=== PATIENT | female | born 1935 | race Caucasian/White ===

== ENCOUNTER 2022-03-10 20:32 | Observation (INO) | payer OTHER ==
--- OUTSIDE RECORDS SUMMARY | 2022-03-10 20:36 | XMS REPORT | Continuity of Care Document ---
:1935 Author Organization [facility] t Address [address] [place] [address] Care Team Providers Name Role Phone ABELINO BARFIELD Primary Care Physician Unavailable Casi Vieira Attending Clinician Unavailable Roseann RODRÍGUEZ Attending Clinician Unavailable Art WELLS Attending Clinician Unavailable Cheyanne RICARDO Attending Clinician Unavailable 1, Lab Attending Clinician Unavailable Fabian Saul MD Attending Clinician Doctor Unassigned, Name Attending Clinician Unavailable NARAYAN HUYNH Attending Clinician Unavailable Matt Duran Admitting Clinician Unavailable Cheyanne RICARDO Admitting Clinician Unavailable NARAYAN HUYNH Admitting Clinician Unavailable Payers Payer Name Policy Type Policy Number Effective Date Expiration Date S ourmo AETNA MEDICARE ADV [id number] 2013 00:00:00 AETM AETM [id number] Problems Condition Condition Condition Status Onset Resolution Last Treating Co mments Source Name Details Category Date Date Treatment Clinician Date Acute Acute Disease Active [facility] hypoxemic hypoxemic 9-10 [place] Acute Acute Disease Active Univers systolic systolic 9-10 ity of (congestiv (congestiv [place] heart e) heart 00 Medica l failure failure Branch Dyspnea Dyspnea Disease Active Univers 9-04 ity of 00:00: [place] [address] Medical Branch Fall from Fall from Disease Active Overview: Univers standing, standing, 5-20 Added ity of initial initial 00:00: automatic [place] encounter encounter 00 ally from M edical request Branch for surgery [id number] Periprosth Periprosth Disease Active Overview : Univers etic etic 5-20 Added ity of fracture fracture 00:00: automatic [place] as around around 00 ally from Medical internal internal request Branc h 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, joint, [id number] initial initial encounter encounter Femur Femur Disease Active Univers fracture, fracture, 5-20 ity of left left 00:00: [place] [address] Medical Branch Obesity Obesity Disease Active Univers (BMI (BMI - ity of 30-39.9) 30-39.9) 00:00: [place] [address] Medical Branch Pneumonia Pneumonia Disease Active Uni vers 02-07 ity of 00:00: [place] [address] Medical Branch Allergies, Adverse Reactions, Alerts Allergy Allergy Status Severity Reaction(s) Onset Inactive Treating Comm ents Source Name Type Date Date Clinician morphine DA Active SV 2020-0 [facility] 10-05 00:00: [address] neomycin DA Active SV 2020-0 [facility] 10-05 00:00: [address] bacitrac DA Active SV 2020-0 [facility] in 10-05 00:00: [address] polymyxi DA Active SV 2020-0 [facility] n B 10-05 00:00: [address] morphine DA Active SV RESPIRATORY [facility] DISTRESS 10-05 00:00: [address] neomycin DA Active SV BLISTERS 2020-0 [facility] 10-05 00:00: [address] bacitrac DA Active SV BLISTERS 2020-0 [facility] in 10-05 00:00: [address] polymyxi DA Active SV BLISTERS 2020- [facility] n B 10-05 00:00: [address] CHOCOLAT DRUG Active N/V Univers E FLAVOR INGREDI 02-05 ity of 00:00: [place] [address] Medical Branch Chocolat Propensi Active Nausea Reports Unive rs e Flavor ty to and/or 5-24 allergy ity of adverse Vomiting 00:00: to [place] reaction 00 chocolate Medic al s Branch morphine DA Active SV 2017-0 [facility] 11-07 00:00: [address] neomycin DA Active SV 2017- [facility] 11-07 00:00: [address] bacitrac DA Active SV 2018-0 [facility] in 11-07 00:00: [address] polymyxi DA Active SV 2017- [facility] n B 11-07 00:00: [address] morphine DA Active SV RESPIRATORY [facility] DISTRESS 11-07 00:00: [address] neomycin DA Active SV BLISTERS 2017- [facility] 11-07 00:00: [address] bacitrac DA Active SV BLISTERS 2017- [facility] in 11-07 00:00: [address] polymyxi DA Active SV BLISTERS 2017- [facility] n B 11-07 00:00: [address] MORPHINE DRUG Active SOB 2016- Univers INGREDI 5-25 ity of 00:00: [place] [address] Medical [place] Morphine Propensi Active Shortness of Throat Univers ty to Breath 5-25 swelling ity of adverse 00:00: [place] reaction 00 Medical s Branch Social History Social Habit Start Date Stop Date Quantity Comments [facility] Exposure to Not sure [place] of SARS-CoV-2 [facility] (event) [place] Tobacco use and 2020-05-18 2020-05-18 Never used Universit y of exposure 00:00:00 00:00:00 [facility] Tobacco Comment 2017-02-07 2017-02-07 Quit 40 years Univer sity of 00:00:00 00:00:00 ago [facility] Smoking Status Start Date Stop Date Source Former smoker 2020-05-18 00:00:00 2020-05-18 00:00:00 Universi ty of [facility] Medications Ordered Filled Start Stop Current Ordering Indication Dosage Frequency Signature Comments Components Source Medication Medication Date Date Medication? Clinician (SIG) Name Name montelukast Yes 10mg Take 10 mg Univers 10 mg 9-10 by mouth ity of tablet 15:26: at [place] 41 bedtime. Medical Branch Budesonide Yes 1{puff} Inhale 1 Univers (PULMICORT 9-10 Puff at ity of FLEXHALER) 15:26: bedtime. [place] 180 41 Medical mcg/actuati Branch on aerosol powder Potassium 2020-0 Yes 1{tbl} Take 1 Univ ers Gluconate 9-10 tablet by ity o f 595 mg (99 15:26: [place] mg) [place] 41 (two) Medical times Branch daily. MAGNESIUM 2020-0 Yes 200mg Take 200 Uni vers OXIDE ORAL 9-10 mg by ity of 15:26: mouth at [place] [address] bedtime. Medical Branch aspirin 81 2020-0 Yes 81mg Take 81 mg U nivers mg chewable 9-10 by mouth ity of tablet 15:26: daily. [place] [address] Medical Branch DOCOSAHEXAN 2020-0 Yes Take by jie OIC 9-10 mouth. ity of ACID/EPA 15:26: [place] (FISH OIL 41 Medical ORAL) Branch ASCORBATE 2020-0 Yes Take by Univ ers CALCIUM 9-10 mouth. ity of (VITAMIN C 15:26: [place] ORAL) 41 Medical Branch VITAMIN B 2020-0 Yes Take by [facility] ers COMPLEX 9-10 mouth. ity of ORAL 15:26: [place] [address] Medical Branch glipiZIDE 5 2020-0 Yes 5mg Take 5 mg U nivers mg tablet 9-10 by mouth ity of 15:26: daily. [place] [address] Medical Branch lisinopriL 2020-0 2020- No [id number] 5mg Take 1 Univers 5 mg tablet 9-10 10-11 tablet by it y of 00:00: 04:59 mouth [place] 00 :00 daily for Medical 30 days. Branch spironolact 2020-0 2020- No [id number] 25mg Take 1 Univers one 25 mg 9-10 10-11 tablet by ity of tablet 00:00: 04:59 mouth [place] 00 :00 daily for Medical 30 days. Branch warfarin 3 2020-0 2020- No [id number] 3mg Take 1 Univers mg tablet 9-10 10-11 tablet by ity of 00:00: 04:59 mouth [place] 00 :00 every Medical Tues, Branch Thurs, Sat and Sun in the evening for 30 days. carvediloL 2020-0 2020- No [id number] 3.125mg Take 1 Univers 3.125 mg 9-09 10-10 tablet by ity o f tablet 00:00: 04:59 mouth 2 [place] 00 :00 (two) Medical times Branch daily with meals for 30 days. furosemide 2020- 2020- No [id number] 40mg Take 1 Univers 40 mg 05-2410 tablet by ity of tablet 00:00: 04:59 mouth [place] 00 :00 every Medical morning Branch and evening for 30 days. warfarin 4 2019- 2020- No [id number] 4mg Take 1 Univers mg tablet 05-24 10-10 tablet by ity of 00:00: 04:59 mouth [place] 00 :00 every Medical Friday, Branch and Friday in the evening for 30 days. carvedilol 2019- Yes 6.25mg Take 6.25 Univers 6.25 mg 6-01 mg by ity of tablet 02:46: mouth 2 [place] [address] (two) Medical times Branch daily with meals. isosorbide Yes 20mg Take 20 mg U nivers dinitrate 6-01 by mouth 2 ity of 20 mg 02:46: (two) [place] tablet 16 times Medical daily. Branch furosemide Yes 20mg Take 20 mg U nivers 20 mg 6-01 by mouth ity of tablet 02:46: daily. [place] [address] Medical Branch amLODIPine 2018- Yes 5mg Take 5 mg Un jie 5 mg tablet 6-01 by mouth ity of 02:46: daily. [place] [address] Medical Branch montelukast 2018-0 Yes 10mg Take 10 mg Univers 10 mg 6-01 by mouth ity of tablet 02:46: at [place] [address] bedtime. Medical Branch Budesonide 2019-0 Yes 1{puff} Inhale 1 Univers (PULMICORT 6-01 Puff at [facility] 02:46: bedtime. [place] 180 16 Medical mcg/actuati Branch on aerosol powder Potassium 2019-0 Yes 1{tbl} Take 1 Univ ers Gluconate 6-01 tablet by ity o f 595 mg (99 02:46: [place] mg) Tab 16 (two) Medical times Branch daily. MAGNESIUM 2019-0 Yes 200mg Take 200 Uni vers OXIDE ORAL 6-01 mg by ity of 02:46: mouth at [place] [address] bedtime. Medical Branch aspirin 81 2019-0 Yes 81mg Take 81 mg U nivers mg chewable 6-01 by mouth ity of tablet 02:46: daily. [place] [address] Medical Branch DOCOSAHEXAN 2019-0 Yes Take by Un jie OIC 6-01 mouth. ity of ACID/EPA 02:46: [place] (FISH OIL 16 Medical ORAL) Branch ASCORBATE 0 Yes Take by [facility] ers CALCIUM 6-01 mouth. ity of (VITAMIN C 02:46: [place] ORAL) Medical Branch VITAMIN B Yes Take by [facility] ers COMPLEX 6-01 mouth. ity of ORAL 02:46: [address] Branch glipiZIDE 5 2018- Yes 5mg Take 5 mg U nivers mg tablet 6-01 by mouth ity of 02:46: daily. [place] [address] Medical Branch carvedilol Yes 6.25mg Take 6.25 Univers 6.25 mg 6-01 mg by ity of tablet 02:46: mouth 2 [place] [address] (two) Medical times Branch daily with meals. isosorbide Yes 20mg Take 20 mg U nivers dinitrate 6-01 by mouth 2 ity of 20 mg 02:46: (two) [place] tablet times Medical daily. Branch furosemide Yes 20mg Take 20 mg U nivers 20 mg 6-01 by mouth ity of tablet 02:46: daily. [place] [address] Medical Branch amLODIPine Yes 5mg Take 5 mg Un jie 5 mg tablet 6-01 by mouth ity of 02:46: daily. [place] [address] Medical Branch montelukast Yes 10mg Take 10 mg Univers 10 mg 6-01 by mouth ity of tablet 02:46: at [place] [address] bedtime. Medical Branch Budesonide 2018-0 Yes 1{puff} Inhale 1 Univers (PULMICORT 6-01 Puff at ity of [facility]) 02:46: bedtime. [place] 180 Medical mcg/actuati Branch on aerosol powder Potassium 2018-0 Yes 1{tbl} Take 1 Univ ers Gluconate 6-01 tablet by ity o f 595 mg (99 02:46: [place] mg) Tab 16 (two) Medical times Branch daily. MAGNESIUM 2019-0 Yes 200mg Take 200 Uni vers OXIDE ORAL 6-01 mg by ity of 02:46: mouth at [place] [address] bedtime. Medical Branch aspirin 81 2019-0 Yes 81mg Take 81 mg U nivers mg chewable 6-01 by mouth ity of tablet 02:46: daily. [place] [address] Medical Branch DOCOSAHEXAN 2019-0 Yes Take by Un jie OIC 6-01 mouth. ity of ACID/EPA 02:46: [place] (FISH OIL 16 Medical ORAL) Branch ASCORBATE 0 Yes Take by [facility] ers CALCIUM 6-01 mouth. ity of (VITAMIN C 02:46: [place] ORAL) Medical Branch VITAMIN B Yes Take by [facility] ers COMPLEX 6-01 mouth. ity of ORAL 02:46: [address] glipiZIDE 5 2018- Yes 5mg Take 5 mg U nivers mg tablet 6-01 by mouth ity of 02:46: daily. [address] Branch carvedilol 0 Yes 6.25mg Take 6.25 Univers 6.25 mg 6-01 mg by ity of tablet 02:46: mouth 2 [place] [address] (two) Medical times Branch daily with meals. isosorbide Yes 20mg Take 20 mg U nivers dinitrate 6-01 by mouth 2 ity of 20 mg 02:46: (two) [place] tablet times Medical daily. Branch furosemide Yes 20mg Take 20 mg U nivers 20 mg 6-01 by mouth ity of tablet 02:46: daily. [address] Branch amLODIPine Yes 5mg Take 5 mg Un jie 5 mg tablet 6-01 by mouth ity of 02:46: daily. [address] Branch montelukast 0 Yes 10mg Take 10 mg Univers 10 mg 6-01 by mouth ity of tablet 02:46: at [place] [address] bedtime. Medical Branch Budesonide 2018-0 Yes 1{puff} Inhale 1 Univers (PULMICORT 6-01 Puff at ity of FLEXHALER) 02:46: bedtime. [place] 180 Medical mcg/actuati Branch on aerosol powder Potassium 2018-0 Yes 1{tbl} Take 1 Univ ers Gluconate 6-01 tablet by ity o f 595 mg (99 02:46: mouth 2 [place] mg) Tab 16 (two) Medical times Branch daily. MAGNESIUM 2019-0 Yes 200mg Take 200 Uni vers OXIDE ORAL 6-01 mg by ity of 02:46: mouth at [place] [address] bedtime. Medical Branch aspirin 81 2019-0 Yes 81mg Take 81 mg U nivers mg chewable 6-01 by mouth ity of tablet 02:46: daily. [place] [address] Medical Branch DOCOSAHEXAN Yes Take by Un jie OIC 6- mouth. ity of ACID/EPA 02:46: [place] (FISH OIL 16 Medical ORAL) Branch ASCORBATE Yes Take by [facility] ers CALCIUM 6- mouth. ity of (VITAMIN C 02:46: [place] ORAL) 16 Medical Branch VITAMIN B Yes Take by [facility] ers COMPLEX 6- mouth. ity of ORAL 02:46: [place] [address] Medical Branch glipiZIDE 5 Yes 5mg Take 5 mg U nivers mg tablet - by mouth ity of 02:46: daily. [place] [address] Medical Branch bisacodyl 5 Yes [id number] 10mg Take 2 Univers mg EC 6-01 tablets by ity of tablet 00:00: mouth [place] 00 daily. Medical Branch bisacodyl 5 Yes [id number] 10mg Take 2 Univers mg EC 6-01 tablets by ity of tablet 00:00: mouth [place] 00 daily. Medical Branch bisacodyl 5 Yes [id number] 10mg Take 2 Univers mg EC 6-01 tablets by ity of tablet 00:00: mouth [place] 00 daily. Medical Branch bisacodyl 5 Yes [id number] 10mg Take 2 Univers mg EC 6-01 tablets by ity of tablet 00:00: mouth [place] 00 daily. Medical Branch sennosides- Yes [id number] 1{tbl} Take 1 Univers docusate 5-31 tablet by ity of sodium 00:00: mouth 2 [place] 8.6-50 mg 00 (two) Medical per tablet times Branch daily. HYDROcodone Yes [id number] 1{tbl} Take 1 Univers -acetaminop 5-31 tablet by ity of hen 5-325 00:00: mouth [place] mg tablet 00 every 6 Medical (six) Branch hours as needed for Pain (scale 7-10). insulin Yes [id number] 10U inject 10 Univers aspart 5-31 Units ity of injection 00:00: under the [place] 00 skin TID Medical MEALS+HS. Branch warfarin 5 Yes [id number] Take 1 Univers mg tablet 5-31 tablet (5 ity o f 00:00: mg) on [place] 00 Friday, Medical Friday, Branch Friday, take 0.5 tablet (2.5mg) on Friday, and Friday Levothyroxi 2018- Yes [id number] 112ug Take 1 Univers ne 112 mcg 5-31 capsule by ity of capsule 00:00: mouth [place] 00 daily. Medical Branch [facility]- Yes [id number] 1{tbl} Take 1 Univers docusate 5-31 tablet by ity of sodium 00:00: mouth 2 [place] 8.6-50 mg 00 (two) Medical per tablet times Branch daily. HYDROcodone Yes [id number] 1{tbl} Take 1 Univers -acetaminop 5-31 tablet by ity of hen 5-325 00:00: mouth [place] mg tablet 00 every 6 Medical (six) Branch hours as needed for Pain (scale 7-10). insulin Yes [id number] 10U inject 10 Univers aspart 5-31 Units ity of injection 00:00: under the [place] 00 skin TID Medical MEALS+HS. Branch warfarin 5 Yes [id number] Take 1 Univers mg tablet 5-31 tablet (5 ity o f 00:00: mg) on Friday, Medical Friday, Branch Friday, take 0.5 tablet (2.5mg) on Friday, and Friday Levothyroxi Yes [id number] 112ug Take 1 Univers ne 112 mcg 5-31 capsule by ity of capsule 00:00: mouth [place] 00 daily. [facility]- Yes [id number] 1{tbl} Take 1 Univers docusate 5-31 tablet by ity of sodium 00:00: mouth 2 [place] 8.6-50 mg 00 (two) Medical per tablet times Branch daily. HYDROcodone Yes [id number] 1{tbl} Take 1 Univers -acetaminop 5-31 tablet by ity of hen 5-325 00:00: mouth [place] mg tablet 00 every 6 Medical (six) Branch hours as needed for Pain (scale 7-10). insulin Yes [id number] 10U inject 10 Univers aspart 5-31 Units ity of injection 00:00: under the [place] 00 skin TID Medical MEALS+HS. Branch warfarin 5 2019-0 Yes [id number] Take 1 Univers mg tablet 5-31 tablet (5 ity o f 00:00: mg) on [place] 00 Friday, Medical Friday, Branch Friday, take 0.5 tablet (2.5mg) on Friday, and Friday Levothyroxi Yes [id number] 112ug Take 1 Univers ne 112 mcg 5-31 capsule by ity of capsule 00:00: mouth 00 daily. Medical Branch sennosides- Yes [id number] 1{tbl} Take 1 Univers docusate 5-31 tablet by ity of sodium 00:00: mouth 2 [place] 8.6-50 mg 00 (two) Medical per tablet times Branch daily. HYDROcodone Yes [id number] 1{tbl} Take 1 Univers -acetaminop 5-31 tablet by ity of hen 5-325 00:00: mouth [place] mg tablet 00 every 6 Medical (six) Branch hours as needed for Pain (scale 7-10). insulin Yes [id number] 10U inject 10 Univers aspart 5-31 Units ity of injection 00:00: under the [place] 00 skin TID Medical MEALS+HS. Branch Levothyroxi Yes [id number] 112ug Take 1 Univers ne 112 mcg 5-31 capsule by ity of capsule 00:00: mouth 00 daily. Medical Branch Procedures Procedure Date / Time Performing Clinician Source Performed HOME HEALTH - OTHER 2019-05-19 05:01:00 [facility] FOR 2019-03-10 05:01:00 Doctor Unassigned, No Univ ersity [facility] OF [facility] Name Medical Branch Encounters Start End Encounter Admission Attending Care Care Encounter Source Date/Time Date/Time Type Type Clinicians Facility Department ID 2021-07-13 Emergency [facility] [id number] Univers 15:52:24 ity of [facility] 2020-10-04 Inpatient EL Pepper, [facility] [id number] [facility] 13:00:00 [place] [id number] [facility] 2020-08-24 Inpatient EL Pepper, [facility] [id number] [facility] 13:00:00 [place] [id number] [facility] 2019-02-20 Inpatient E [facility] MED [id number] MHB L 20:55:00 2020-10-05 2020-10-05 Outpatient Pepper, [facility] [id number] [facility] 13:00:00 13:00:00 [place] [id number] [facility] 2020-08-31 2020-08-31 Outpatient Pepper, [facility] [id number] [facility] 13:00:00 13:00:00 [place] [id number] [facility] 2020-07-18 2020-07-18 Outpatient Pepper, [facility] [id number] [facility] 09:30:00 09:30:00 [place] [id number] [facility] 2020-05-26 2020-05-26 Transition [place] [id number] Univers 00:00:00 00:00:00 of Care Nicole Arita [id number] it y [place] [id number] [place] [id number] [address] 2020-05-26 2020-05-26 Transition [place] [id number] 00:00:00 00:00:00 of Care Nicole Arita [id number] [place] [id number] [id number] 2019-12-09 2019-12-09 Outpatient Shaina [facility] [id number] Univers 10:30:00 10:30:00 JB 997235 lito [facility] 2019-12-09 2019-12-09 Outpatient Shaina [facility] [id number] Univers 10:30:00 10:30:00 JB morse [facility] 2019-12-01 2019-12-01 Outpatient Shaina [facility] [id number] Univers 13:00:00 13:00:00 JB [facility] 2019-08-24 2019-08-24 Outpatient Shaina [facility] [id number] Univers 10:36:58 23:59:00 HILDA morse [facility] 2019-05-19 2019-05-19 Alternative [employer] Engineer 1, Adc Lab [facility] [id number] Univers 15:02:08 15:17:08 Visit Debi Saul [id number] .10 ity [place]2.[place] [id number] [address] 2019-05-19 2019-05-19 Alternative Energy Engineer 1, Adc Lab [facility] [id number] 15:02:08 15:17:08 Visit Yaneth [id number] [place] [id number] [place] [id number] [facility] 2019-05-19 2019-05-19 Orders Doctor DOMINGA [id number] Univers 00:00:00 00:00:00 Only Unassigned, BLAKE [id number] ity of [facility] [id number] [place] [id number] [address] 2019-05-19 2019-05-19 Orders Doctor ORR [id number] 00:00:00 00:00:00 Only Unassigned, BLAKE [id number] [facility] [id number] [id number] 2019-03-10 2019-03-10 Orders Doctor ORR [id number] Univers 00:00:00 00:00:00 Only Unassigned, BLAKE [id number] ity of [facility] [id number] [place] [id number] [address] 2019-03-10 2019-03-10 Orders Doctor ORR [id number] 00:00:00 00:00:00 Only Unassigned, BLAKE [id number] [facility] [id number] [id number] 2019-02-12 2019-02-20 Inpatient 3 AMINA, [facility] [id number] ENCPL 22:30:00 19:00:00 NARAYAN 0531 Results Test Description Test Time Test Comments Results Result Comments Source BASIC METABOLIC PANEL 2020-10-05 14:40:00 Test Item Value Reference Range Interpretation Comme nts SODIUM (test code = NA) 134 MMOL/L 137-145 L POTASSIUM (test code = K) 4.0 MMOL/L 3.5-5.1 N CHLORIDE (test code = CL) 101 MMOL/L 98-107 N CARBON DIOXIDE (test code = CO2) 30 MMOL/L 22-30 N ANION GAP (test code = GAP) 7 MMOL/L 14-24 L GLUCOSE (test code = GLU) 104 MG/DL 74-106 BLOOD UREA NITROGEN (test code = 22 MG/DL 7-17 H BUN) GLOMERULAR FILTRATION RATE (test 53 Reporting units: ml/min/1.73 code = GFR) m2 (Modified M DRD Formula)Referen ce Range: > or = 60 ml/min/1.7 3 m2 CREATININE (test code = CREAT) 1.00 MG/DL 0.52-1.04 N CALCIUM (test code = CA) 8.6 MG/DL 8.4-10.2 N [id number] 14:40:00 Test Item Value Reference Range Interpretation Comments MAGNESIUM (test code = MAG) 2.1 MG/DL 1.6-2.3 N BASIC METABOLIC [id number] 14:36:00 Test Item Value Reference Range Interpretation Comments SODIUM (test code = 134 MMOL/L 137-145 L NA) POTASSIUM (test code = 4.0 MMOL/L 3.5-5.1 N K) CHLORIDE (test code = 101 MMOL/L 98-107 N CL) CARBON DIOXIDE (test MMOL/L 22-30 code = CO2) GLUCOSE (test code = MG/DL 74-106 GLU) BLOOD UREA NITROGEN MG/DL 7-17 (test code = BUN) GLOMERULAR FILTRATION 53 Report ing units: RATE (test code = GFR) ml/mi n/1.73 m2 (Modified MDRD Formula)Referen ce Range: > or = 6 0 ml/min/1.73 m2 CREATININE (test code 1.00 MG/DL 0.52-1.04 N = CREAT) CALCIUM (test code = MG/DL 8.7-9.7 CA) [id number] 14:36:00 Test Item Value Reference Range Interpretation Comments MAGNESIUM (test code = MAG) MG/DL 1.6-2.3 BASIC METABOLIC [id number] 14:34:00 Test Item Value Reference Range Interpretation Comments SODIUM (test code = NA) 134 MMOL/L 137-145 L POTASSIUM (test code = K) 4.0 MMOL/L 3.5-5.1 N CHLORIDE (test code = CL) 101 MMOL/L 98-107 N CARBON DIOXIDE (test code = CO2) MMOL/L 22-30 GLUCOSE (test code = GLU) MG/DL 74-106 BLOOD UREA NITROGEN (test code = MG/DL 7-17 BUN) GLOMERULAR FILTRATION RATE (test code = GFR) CREATININE (test code = CREAT) MG/DL 0.52-1.04 CALCIUM (test code = CA) MG/DL 8.7-9.7 [id number] 14:34:00 Test Item Value Reference Range Interpretation Comments MAGNESIUM (test code = MAG) MG/DL 1.6-2.3 CBC W/AUTO [id number] 14:15:00 Test Item Value Reference Range Interpretation Comments WHITE BLOOD CELL (test code = 10.4 K/MM3 3.8-9.8 H WBC) RED BLOOD CELL (test code = 4.12 M/MM3 3.58-4.97 N RBC) HEMOGLOBIN (test code = HGB) 12.5 G/DL 11.2-14.9 N HEMATOCRIT (test code = HCT) 41.7 % 33.2-43.5 N MEAN CELL VOLUME (test code = 101 fL 80.7-99.1 H MCV) MEAN CELL HGB (test code = MCH) 30.3 pg 27.0-34.1 N MEAN CELL HGB CONCETRATION 30.0 % 32.2-35.7 L (test code = MCHC) RED CELL DISTRIBUTION WIDTH 14.6 % 12.1-15.2 N (test code = RDW) PLATELET COUNT (test code = 187 K/MM3 129-368 N PLT) MEAN PLATELET VOLUME (test code 9.0 fl 7.4-10.4 N = MPV) NEUTROPHIL % (test code = NT%) 71.1 % 43-75 N IMMATURE GRANULOCYTE % (test 0.4 % 0.0-2.0 N code = IG%) LYMPHOCYTE % (test code = LY%) 14.4 % 14-44 N MONOCYTE % (test code = MO%) 11.7 % 4-13 N EOSINOPHIL % (test code = EO%) 1.8 % 0-6 N BASOPHIL % (test code = BA%) 0.6 % 0-2 N NUCLEATED RBC % (test code = 0.0 % 0-1.0 N NRBC%) NEUTROPHIL # (test code = NT#) 7.38 K/mm3 2.0-7.6 N IMMATURE GRANULOCYTE # (test 0.04 x10 3/uL 0-0.03 H code = IG#) LYMPHOCYTE # (test code = LY#) 1.49 K/mm3 1.0-3.8 N MONOCYTE # (test code = MO#) 1.21 K/mm3 0.1-0.8 H EOSINOPHIL # (test code = EO#) 0.19 K/mm3 0.0-0.2 N BASOPHIL # (test code = BA#) 0.06 K/mm3 0.0-0.2 N NUCLEATED RBC # (test code = 0.00 K/mm3 0.0-0.1 N NRBC#) ARTERIAL BLOOD [id number] 19:02:00 Test Item Value Reference Range Interpretation Comments ARTERIAL BLOOD GAS PH 7.32 mmHg 7.35-7.45 L (test code = PHA) ARTERIAL BLOOD GAS 52.3 mmHg 35.0-45.0 HH PCO2 (test code = PCO2A) ARTERIAL BLOOD GAS PO2 112.5 mmol/L 80.0-100.0 H (test code = PO2A) BICARBONATE TOTAL HCO3 26.5 mmol/L 20.0-26.0 H (test code = HCO3) BASE EXCESS (test code -0.4 mmol/L -3.0-3.0 N = ROBERT) ABG O2 SATURATION 97.7 % 95.0-100.0 N All critic al values (test code = SATA) report to and readback by [facility] NURSE by ANDREW at 10/04/2020 7:01: 33 PM ABG DELIVERY (test NRBMASK code = RUTHIE) ABG TEMPERATURE (test 37.0 C >37 code = TEMPA) ABG SITE (test code = LINE SITEA) ALLENS TEST (test code Y CHECK = ALLENS) FIO2 (test code = 80 % COHBGFFIO2) PaO2/[id number] 19:02:00 Test Item Value Reference Range Interpretation Comments PaO2/FiO2 (test code = [id number]) mm/Hg ARTERIAL BLOOD [id number] 19:02:00 Test Item Value Reference Range Interpretation Comments ARTERIAL BLOOD GAS PH 7.32 mmHg 7.35-7.45 L (test code = PHA) ARTERIAL BLOOD GAS 52.3 mmHg 35.0-45.0 HH PCO2 (test code = PCO2A) ARTERIAL BLOOD GAS PO2 112.5 mmol/L 80.0-100.0 H (test code = PO2A) BICARBONATE TOTAL HCO3 26.5 mmol/L 20.0-26.0 H (test code = HCO3) BASE EXCESS (test code -0.4 mmol/L -3.0-3.0 N = ROBERT) ABG O2 SATURATION 97.7 % 95.0-100.0 N All critic al values (test code = SATA) report to and readback by [facility] NURSE by ANDREW at 10/04/2020 7:01: 33 PM ABG DELIVERY (test NRBMASK code = RUTHIE) ABG TEMPERATURE (test 37.0 C >37 code = TEMPA) ABG SITE (test code = LINE SITEA) ALLENS TEST (test code Y CHECK = ALLENS) FIO2 (test code = 80 % COHBGFFIO2) PaO2/[id number] 19:02:00 Test Item Value Reference Range Interpretation Comments PaO2/FiO2 (test code = [id number]) 140.62 mm/Hg BASIC METABOLIC [id number] 16:01:00 Test Item Value Reference Range Interpretation Comments SODIUM (test code = 137 MMOL/L 137-145 N NA) POTASSIUM (test code = 3.6 MMOL/L 3.5-5.1 N K) CHLORIDE (test code = 102 MMOL/L 98-107 N CL) CARBON DIOXIDE (test 32 MMOL/L 22-30 H code = CO2) GLUCOSE (test code = 145 MG/DL 74-106 H GLU) BLOOD UREA NITROGEN 22 MG/DL 7-17 H (test code = BUN) GLOMERULAR FILTRATION > 60 Report ing units: RATE (test code = GFR) ml/mi n/1.73 m2 (Modified MDRD Formula)Referen ce Range: > or = 6 0 ml/min/1.73 m2 CREATININE (test code 0.80 MG/DL 0.52-1.04 N = CREAT) CALCIUM (test code = 8.9 MG/DL 8.4-10.2 N CA) BASIC METABOLIC [id number] 15:59:00 Test Item Value Reference Range Interpretation Comments SODIUM (test code = 137 MMOL/L 137-145 N NA) POTASSIUM (test code = 3.6 MMOL/L 3.5-5.1 N K) CHLORIDE (test code = 102 MMOL/L 98-107 N CL) CARBON DIOXIDE (test 32 MMOL/L 22-30 H code = CO2) GLUCOSE (test code = MG/DL 74-106 GLU) BLOOD UREA NITROGEN MG/DL 7-17 (test code = BUN) GLOMERULAR FILTRATION > 60 Report ing units: RATE (test code = GFR) ml/mi n/1.73 m2 (Modified MDRD Formula)Referen ce Range: > or = 6 0 ml/min/1.73 m2 CREATININE (test code 0.80 MG/DL 0.52-1.04 N = CREAT) CALCIUM (test code = MG/DL 8.7-9.7 CA) BASIC METABOLIC [id number] 15:57:00 Test Item Value Reference Range Interpretation Comments SODIUM (test code = NA) 137 MMOL/L 137-145 N POTASSIUM (test code = K) 3.6 MMOL/L 3.5-5.1 N CHLORIDE (test code = CL) 102 MMOL/L 98-107 N CARBON DIOXIDE (test code = CO2) MMOL/L 22-30 GLUCOSE (test code = GLU) MG/DL 74-106 BLOOD UREA NITROGEN (test code = MG/DL 7-17 BUN) GLOMERULAR FILTRATION RATE (test code = GFR) CREATININE (test code = CREAT) MG/DL 0.52-1.04 CALCIUM (test code = CA) MG/DL 8.7-9.7 BASIC METABOLIC [id number] 15:56:00 Test Item Value Reference Range Interpretation Comments SODIUM (test code = NA) 137 MMOL/L 137-145 N POTASSIUM (test code = K) MMOL/L 3.5-5.1 CHLORIDE (test code = CL) 102 MMOL/L 98-107 N CARBON DIOXIDE (test code = CO2) MMOL/L 22-30 GLUCOSE (test code = GLU) MG/DL 74-106 BLOOD UREA NITROGEN (test code = MG/DL 7-17 BUN) GLOMERULAR FILTRATION RATE (test code = GFR) CREATININE (test code = CREAT) MG/DL 0.52-1.04 CALCIUM (test code = CA) MG/DL 8.7-9.7 - XR CHEST [id number] 15:51:00 [facility] 1935 Sex: F Patient Name: NED BENNETT Unit No: [id number] EXAMS: CPT CODE: [id number] XR CHEST 1V 72775 C3 TIME OF STUDY: 10/04/2020 3:17 PM REASON FOR EXAM: POST AICD IMPLANT COMPARISON: July 18, 2020 FINDINGS: AP view of the chest was obtained. Support devices: Left-sided pacemaker/ICD is in place. Lungs: Normal lung volume. No mass, or consolidation. Normal pulmonary vascularity. Senescent changes of the lungs. Pleura: No pleural effusion or pneumothorax. Heart and Mediastinum: Normal cardiomediastinal silhouette and calcific atherosclerosis. Bones: Normal regional skeletal structures.IMPRESSION: 1. Left-sided pacemaker/ICD in place. The leads do not appear to follow a conventional course. Correlate with history. No pneumothorax. at 1551 Reported and signed by: Jacobo SCHREIBER CC: Sean Duran MD; Vernon Vieira; Santy Barfield MD Technologist: Brenda Borges (RT) Transcrpt Date/Tm/Trnsp: 10/04/2020 (155) [email or web address] Orig Print D/T: S: 10/04/2020 (634) [facility] NAME: NED BENNETT [id number] PHYS: [place] [address] : 1935 AGE: 85 SEX: F [facility] #: [phone] EXAM DATE: 10/04/2020 STATUS: REG IAN FAX #: [phone] RADIOLOGY NO: PAGE 1 Signed ReportBASIC METABOLIC [id number] 07:23:00 Test Item Value Reference Range Interpretation Comments SODIUM (test code = 139 MMOL/L 137-145 N NA) POTASSIUM (test code = 3.9 MMOL/L 3.5-5.1 N K) CHLORIDE (test code = 100 MMOL/L 98-107 N CL) CARBON DIOXIDE (test 32 MMOL/L 22-30 H code = CO2) ANION GAP (test code = 11 MMOL/L 14-24 L GAP) GLUCOSE (test code = 139 MG/DL 74-106 H GLU) BLOOD UREA NITROGEN 29 MG/DL 7-17 H (test code = BUN) GLOMERULAR FILTRATION 59 Report ing units: RATE (test code = GFR) ml/mi n/1.73 m2 (Modified MDRD Formula)Referen ce Range: > or = 6 0 ml/min/1.73 m2 CREATININE (test code 0.90 MG/DL 0.52-1.04 N = CREAT) CALCIUM (test code = 9.8 MG/DL 8.4-10.2 N CA) [id number] 07:23:00 Test Item Value Reference Range Interpretation Comments MAGNESIUM (test code = MAG) 2.1 MG/DL 1.6-2.3 N PROTHROMBIN [id number] 07:20:00 Test Item Value Reference Range Interpretation Comments PROTHROMBIN TIME 13.8 SECONDS 9.4-12.5 H PATIENT (test code = PTP) INTERNATIONAL NORMAL 1.2 The INR is to be RATIO (test code = used only for INR) monitoring oral anticoagulantth erap y. INDICATION I NR VALUE ---- ---- ---- -------1. Prophylaxis, de ep venous thrombos is, including hig h risk surgery. 2.0 - 3.0 2. Prophylaxis, de ep venous thrombos is, hip surgery, treatment for d eep venous thrombosis or pulmonary prevention of systemic emboli sm in patients wit h valvular heart disease, atrial fibrillation, tissue heart va lve, or acute myocar dial infarction. 2.0 - 3 .0 3. Mechanical prosthesis hear t valves, recurrent syste marta embolism. 3.0 - 4.5 PTT [id number] 07:20:00 Test Item Value Reference Range Interpretation Comments PTT ACTIVATED (test code = APTT) 35.3 SECONDS 25.1-36.5 N BASIC METABOLIC [id number] 07:13:00 Test Item Value Reference Range Interpretation Comments SODIUM (test code = 139 MMOL/L 137-145 N NA) POTASSIUM (test code = 3.9 MMOL/L 3.5-5.1 N K) CHLORIDE (test code = 100 MMOL/L 98-107 N CL) CARBON DIOXIDE (test MMOL/L 22-30 code = CO2) GLUCOSE (test code = MG/DL 74-106 GLU) BLOOD UREA NITROGEN MG/DL 7-17 (test code = BUN) GLOMERULAR FILTRATION 59 Report ing units: RATE (test code = GFR) ml/mi n/1.73 m2 (Modified MDRD Formula)Referen ce Range: > or = 6 0 ml/min/1.73 m2 CREATININE (test code 0.90 MG/DL 0.52-1.04 N = CREAT) CALCIUM (test code = MG/DL 8.7-9.7 CA) [id number] 07:13:00 Test Item Value Reference Range Interpretation Comments MAGNESIUM (test code = MAG) MG/DL 1.6-2.3 CBC W/AUTO [id number] 07:11:00 Test Item Value Reference Range Interpretation Comments WHITE BLOOD CELL (test code = 8.3 K/MM3 3.8-9.8 N WBC) RED BLOOD CELL (test code = 4.25 M/MM3 3.58-4.97 N RBC) HEMOGLOBIN (test code = HGB) 13.0 G/DL 11.2-14.9 N HEMATOCRIT (test code = HCT) 41.2 % 33.2-43.5 N MEAN CELL VOLUME (test code = 97 fL 80.7-99.1 N MCV) MEAN CELL HGB (test code = MCH) 30.6 pg 27.0-34.1 N MEAN CELL HGB CONCETRATION 31.6 % 32.2-35.7 L (test code = MCHC) RED CELL DISTRIBUTION WIDTH 14.5 % 12.1-15.2 N (test code = RDW) PLATELET COUNT (test code = 213 K/MM3 129-368 N PLT) MEAN PLATELET VOLUME (test code 8.7 fl 7.4-10.4 N = MPV) NEUTROPHIL % (test code = NT%) 48.1 % 43-75 N IMMATURE GRANULOCYTE % (test 0.2 % 0.0-2.0 N code = IG%) LYMPHOCYTE % (test code = LY%) 36.0 % 14-44 N MONOCYTE % (test code = MO%) 11.1 % 4-13 N EOSINOPHIL % (test code = EO%) 3.6 % 0-6 N BASOPHIL % (test code = BA%) 1.0 % 0-2 N NUCLEATED RBC % (test code = 0.0 % 0-1.0 N NRBC%) NEUTROPHIL # (test code = NT#) 4.00 K/mm3 2.0-7.6 N IMMATURE GRANULOCYTE # (test 0.02 x10 3/uL 0-0.03 N code = IG#) LYMPHOCYTE # (test code = LY#) 2.99 K/mm3 1.0-3.8 N MONOCYTE # (test code = MO#) 0.92 K/mm3 0.1-0.8 H EOSINOPHIL # (test code = EO#) 0.30 K/mm3 0.0-0.2 H BASOPHIL # (test code = BA#) 0.08 K/mm3 0.0-0.2 N NUCLEATED RBC # (test code = 0.00 K/mm3 0.0-0.1 N NRBC#) BASIC METABOLIC [id number] 07:11:00 Test Item Value Reference Range Interpretation Comments SODIUM (test code = NA) 139 MMOL/L 137-145 N POTASSIUM (test code = K) 3.9 MMOL/L 3.5-5.1 N CHLORIDE (test code = CL) 100 MMOL/L 98-107 N CARBON DIOXIDE (test code = CO2) MMOL/L 22-30 GLUCOSE (test code = GLU) MG/DL 74-106 BLOOD UREA NITROGEN (test code = MG/DL 7-17 BUN) GLOMERULAR FILTRATION RATE (test code = GFR) CREATININE (test code = CREAT) MG/DL 0.52-1.04 CALCIUM (test code = CA) MG/DL 8.7-9.7 [id number] 07:11:00 Test Item Value Reference Range Interpretation Comments MAGNESIUM (test code = MAG) MG/DL 1.6-2.3 BASIC METABOLIC [id number] 07:10:00 Test Item Value Reference Range Interpretation Comments SODIUM (test code = NA) MMOL/L 137-145 POTASSIUM (test code = K) MMOL/L 3.5-5.1 CHLORIDE (test code = CL) 100 MMOL/L 98-107 N CARBON DIOXIDE (test code = CO2) MMOL/L 22-30 GLUCOSE (test code = GLU) MG/DL 74-106 BLOOD UREA NITROGEN (test code = MG/DL 7-17 BUN) GLOMERULAR FILTRATION RATE (test code = GFR) CREATININE (test code = CREAT) MG/DL 0.52-1.04 CALCIUM (test code = CA) MG/DL 8.7-9.7 [id number] 07:10:00 Test Item Value Reference Range Interpretation Comments MAGNESIUM (test code = MAG) MG/DL 1.6-2.3 COVID 19 Asymptomatic IH [id number] 16:58:00 Test Item Value Reference Range Interpretation Comments COVID 19 NEGATIVE Negative "Negative resul ts from Asymptomatic IH AG patients with symptom (test code = onset beyondfiv e days, COVNONPUIAG) should be sotero dewayne as presumptive, andconfirmation with a molecular assay , if necessary forpa tient management may be performed. Nega tive results do notr ule out COVID-19 and sh ould not be used as the sole basisfor treatm ent or patient managem ent decisions, includinginfect ion control decisio ns. Negative result s should beconsidered in the context of a pa tients recent exposure s,history, and the presenc e of clinical signs and symptomsconsist ent with COVID-19.This t est detects both vi able andnon-viable S ARS-CoV and SARS CoV-2. Test performance dep endson the amount of virus (antigen) in the sample." GLUCOSE BEDSIDE [id number] 11:53:00 Test Item Value Reference Range Interpretation Comments GLUCOSE BEDSIDE TESTING (test code = 94 MG/DL 60-99 N GLUBED) GLUCOSE BEDSIDE [id number] 08:02:00 Test Item Value Reference Range Interpretation Comments GLUCOSE BEDSIDE TESTING (test code 117 MG/DL 60-99 H = GLUBED) BASIC METABOLIC [id number] 07:19:00 Test Item Value Reference Range Interpretation Comments SODIUM (test code = 139 MMOL/L 137-145 N NA) POTASSIUM (test code = 4.3 MMOL/L 3.5-5.1 N K) CHLORIDE (test code = 104 MMOL/L 98-107 N CL) CARBON DIOXIDE (test 29 MMOL/L 22-30 N code = CO2) ANION GAP (test code = 10 MMOL/L 14-24 L GAP) GLUCOSE (test code = 106 MG/DL 74-106 GLU) BLOOD UREA NITROGEN 22 MG/DL 7-17 H (test code = BUN) GLOMERULAR FILTRATION 53 Report ing units: RATE (test code = GFR) ml/mi n/1.73 m2 (Modified MDRD Formula)Referen ce Range: > or = 6 0 ml/min/1.73 m2 CREATININE (test code 1.00 MG/DL 0.52-1.04 N = CREAT) CALCIUM (test code = 9.2 MG/DL 8.4-10.2 N CA) BASIC METABOLIC [id number] 06:41:00 Test Item Value Reference Range Interpretation Comments SODIUM (test code = NA) 139 MMOL/L 137-145 N POTASSIUM (test code = K) 4.3 MMOL/L 3.5-5.1 N CHLORIDE (test code = CL) 104 MMOL/L 98-107 N CARBON DIOXIDE (test code = CO2) MMOL/L 22-30 GLUCOSE (test code = GLU) MG/DL 74-106 BLOOD UREA NITROGEN (test code = MG/DL 7-17 BUN) GLOMERULAR FILTRATION RATE (test code = GFR) CREATININE (test code = CREAT) MG/DL 0.52-1.04 CALCIUM (test code = CA) MG/DL 8.7-9.7 CBC W/AUTO [id number] 06:27:00 Test Item Value Reference Range Interpretation Comments WHITE BLOOD CELL (test code = 8.6 K/MM3 3.8-9.8 N WBC) RED BLOOD CELL (test code = 4.21 M/MM3 3.58-4.97 N RBC) HEMOGLOBIN (test code = HGB) 12.9 G/DL 11.2-14.9 N HEMATOCRIT (test code = HCT) 41.7 % 33.2-43.5 N MEAN CELL VOLUME (test code = 99 fL 80.7-99.1 N MCV) MEAN CELL HGB (test code = MCH) 30.6 pg 27.0-34.1 N MEAN CELL HGB CONCETRATION 30.9 % 32.2-35.7 L (test code = MCHC) RED CELL DISTRIBUTION WIDTH 13.9 % 12.1-15.2 N (test code = RDW) PLATELET COUNT (test code = 199 K/MM3 129-368 N PLT) MEAN PLATELET VOLUME (test code 8.8 fl 7.4-10.4 N = MPV) NEUTROPHIL % (test code = NT%) 61.8 % 43-75 N IMMATURE GRANULOCYTE % (test 0.5 % 0.0-2.0 N code = IG%) LYMPHOCYTE % (test code = LY%) 24.0 % 14-44 N MONOCYTE % (test code = MO%) 9.9 % 4-13 N EOSINOPHIL % (test code = EO%) 3.2 % 0-6 N BASOPHIL % (test code = BA%) 0.6 % 0-2 N NUCLEATED RBC % (test code = 0.0 % 0-1.0 N NRBC%) NEUTROPHIL # (test code = NT#) 5.30 K/mm3 2.0-7.6 N IMMATURE GRANULOCYTE # (test 0.04 x10 3/uL 0-0.03 H code = IG#) LYMPHOCYTE # (test code = LY#) 2.06 K/mm3 1.0-3.8 N MONOCYTE # (test code = MO#) 0.85 K/mm3 0.1-0.8 H EOSINOPHIL # (test code = EO#) 0.27 K/mm3 0.0-0.2 H BASOPHIL # (test code = BA#) 0.05 K/mm3 0.0-0.2 N NUCLEATED RBC # (test code = 0.00 K/mm3 0.0-0.1 N NRBC#) GLUCOSE BEDSIDE [id number] 20:07:00 Test Item Value Reference Range Interpretation Comments GLUCOSE BEDSIDE TESTING (test code = 95 MG/DL 60-99 N GLUBED) GLUCOSE BEDSIDE [id number] 16:22:00 Test Item Value Reference Range Interpretation Comments GLUCOSE BEDSIDE TESTING (test code 103 MG/DL 60-99 H = GLUBED) - XR CHEST [id number] 15:05:00 [facility] : 1935 Sex: F Patient Name: NED BENNETT Unit No: [id number] EXAMS: CPT CODE: [id number] XR CHEST 1V [id number] LOCATION: T18 EXAM: CHEST 1 VIEW INDICATION: , Attempted venous access. COMPARISON: None. TECHNIQUE: AP chest radiograph. FINDINGS: Diffuse bilateral interstitial lung markings likely chronic interstitial lung disease. Calcification aorta present. No pleural effusion is seen. Heart isnormal in size. Bones and peripheral soft tissues are unremarkable. IMPRESSION: Findings concerning for chronic interstitial lung disease. at 1505 Reported and signed by: Neftali Martin MD CC: Sean Duran MD; Vernon Vieira Technologist: Khai Muñoz,RT(R) Transcrpt Date/Tm/Trnsp: 07/18/2020 (1505) [email or web address] Orig Print D/T: S: 07/18/2020 (1508) [facility] NAME: NED BENNETT [address] PHYS: [place] [address] : 1935 AGE: 85 SEX: F LOC: Z.DC4T A PHONE #: [phone] EXAM DATE: 07/18/2020 STATUS: ADM IN FAX #: [phone] RADIOLOGY NO: PAGE 1 Signed ReportBASIC METABOLIC [id number] 07:39:00 Test Item Value Reference Range Interpretation Comments SODIUM (test code = 137 MMOL/L 137-145 N NA) POTASSIUM (test code = 3.9 MMOL/L 3.5-5.1 N K) CHLORIDE (test code = 100 MMOL/L 98-107 N CL) CARBON DIOXIDE (test 29 MMOL/L 22-30 N code = CO2) GLUCOSE (test code = 130 MG/DL 74-106 H GLU) BLOOD UREA NITROGEN 27 MG/DL 7-17 H (test code = BUN) GLOMERULAR FILTRATION 47 Report ing units: RATE (test code = GFR) ml/mi n/1.73 m2 (Modified MDRD Formula)Referen ce Range: > or = 6 0 ml/min/1.73 m2 CREATININE (test code 1.10 MG/DL 0.52-1.04 H = CREAT) CALCIUM (test code = 9.8 MG/DL 8.4-10.2 N CA) Comments to [employer] Analyst: NURSE WILL BRING SPECIMEN TO LABIs this a LINE draw? N [id number] 07:39:00 Test Item Value Reference Range Interpretation Comments MAGNESIUM (test code = MAG) 2.1 MG/DL 1.6-2.3 N Comments to [employer]st: NURSE WILL BRING SPECIMEN TO LABIs this a LINE draw? N PROTHROMBIN [id number] 07:27:00 Test Item Value Reference Range Interpretation Comments PROTHROMBIN TIME 13.0 SECONDS 9.4-12.5 H PATIENT (test code = PTP) INTERNATIONAL NORMAL 1.2 The INR is to be RATIO (test code = used only for INR) monitoring oral anticoagulantth erap y. INDICATION I NR VALUE ---- ---- ---- -------1. Prophylaxis, de ep venous thrombos is, including hig h risk surgery. 2.0 - 3.0 2. Prophylaxis, de ep venous thrombos is, hip surgery, treatment for d eep venous thrombosis or pulmonary prevention of systemic emboli sm in patients wit h valvular heart disease, atrial fibrillation, tissue heart va lve, or acute myocar dial infarction. 2.0 - 3 .0 3. Mechanical prosthesis hear t valves, recurrent syste marta embolism. 3.0 - 4.5 Comments to [employer] Analyst: NURSE WILL BRING SPECIMEN TO LABComments to [employer] Analyst: NURSE GANESH BRING SPECIMEN TOLABPTT [id number] 07:27:00 Test Item Value Reference Range Interpretation Comments PTT ACTIVATED (test code = APTT) 33.4 SECONDS 25.1-36.5 N Comments to [employer]st: NURSE WILL BRING SPECIMEN TO LABComments to [employer] Analyst: NURSE GANESH BRING SPECIMEN TOLABCBC W/AUTO [id number] 07:11:00 Test Item Value Reference Range Interpretation Comments WHITE BLOOD CELL (test code = 8.0 K/MM3 3.8-9.8 N WBC) RED BLOOD CELL (test code = 4.31 M/MM3 3.58-4.97 N RBC) HEMOGLOBIN (test code = HGB) 13.1 G/DL 11.2-14.9 N HEMATOCRIT (test code = HCT) 41.6 % 33.2-43.5 N MEAN CELL VOLUME (test code = 97 fL 80.7-99.1 N MCV) MEAN CELL HGB (test code = MCH) 30.4 pg 27.0-34.1 N MEAN CELL HGB CONCETRATION 31.5 % 32.2-35.7 L (test code = MCHC) RED CELL DISTRIBUTION WIDTH 13.5 % 12.1-15.2 N (test code = RDW) PLATELET COUNT (test code = 207 K/MM3 129-368 N PLT) MEAN PLATELET VOLUME (test code 8.5 fl 7.4-10.4 N = MPV) NEUTROPHIL % (test code = NT%) 45.4 % 43-75 N IMMATURE GRANULOCYTE % (test 0.2 % 0.0-2.0 N code = IG%) LYMPHOCYTE % (test code = LY%) 39.8 % 14-44 N MONOCYTE % (test code = MO%) 9.6 % 4-13 N EOSINOPHIL % (test code = EO%) 4.4 % 0-6 N BASOPHIL % (test code = BA%) 0.6 % 0-2 N NUCLEATED RBC % (test code = 0.0 % 0-1.0 N NRBC%) NEUTROPHIL # (test code = NT#) 3.65 K/mm3 2.0-7.6 N IMMATURE GRANULOCYTE # (test 0.02 x10 3/uL 0-0.03 N code = IG#) LYMPHOCYTE # (test code = LY#) 3.20 K/mm3 1.0-3.8 N MONOCYTE # (test code = MO#) 0.77 K/mm3 0.1-0.8 N EOSINOPHIL # (test code = EO#) 0.35 K/mm3 0.0-0.2 H BASOPHIL # (test code = BA#) 0.05 K/mm3 0.0-0.2 N NUCLEATED RBC # (test code = 0.00 K/mm3 0.0-0.1 N NRBC#) Comments to [employer]st: NURSE WILL BRING SPECIMEN TO LABIs this a LINE draw? N Coronavirus 2018 nCoV [id number] 15:55:00 Test Item Value Reference Range Interpretation Comments Coronavirus 2018 Negative Negative Results are for the nCoV Bedside (test identific ation of code = SARS-CoV-2 RNA. [id number]) GyiKHJB-UhS-0 RNA is generally detec table in respiratorysamp les during the acute phase of infection. Posi tiveresults are indicative of the presence of SANDRA S-CoV-2 RNA;clinical co rrelation with patient hi story and otherdiagnostic information is necessary to determine patientinfectio n status. Positive result s do not rule out bacterialinfect ion or co-infection wi th other viruses. CBC W/AUTO [id number] 13:07:00 Test Item Value Reference Range Interpretation Comments WHITE BLOOD CELL (test code = 9.1 K/mm3 3.5-11.0 N WBC) RED BLOOD CELL (test code = RBC) 2.88 M/mm3 4.70-6.10 L HEMOGLOBIN (test code = HGB) 8.9 G/DL 10.4-14.9 L HEMATOCRIT (test code = HCT) 29.7 % 31.5-44.1 L MEAN CELL VOLUME (test code = 103.1 Fl 84.5-98.6 H MCV) MEAN CELL HGB (test code = MCH) 30.9 pg 27.0-34.2 N MEAN CELL HGB CONCETRATION (test 30.0 G/DL 31.5-34.0 L code = MCHC) RED CELL DISTRIBUTION WIDTH (test 14.9 SD 11.5-14.5 H code = RDW) PLATELET COUNT (test code = PLT) 497.0 K/mm3 150-450 H MEAN PLATELET VOLUME (test code = 8.40 fL 7.0-10.5 N MPV) NEUTROPHIL % (test code = NT%) 85.5 % 40-76 H LYMPHOCYTE % (test code = LY%) 5.9 % 20.5-51.1 L MONOCYTE % (test code = MO%) 5.6 % 1.7-9.3 N EOSINOPHIL % (test code = EO%) 2.8 % 0.0-6.0 N BASOPHIL % (test code = BA%) 0.2 % 0.0-2.0 N NEUTROPHIL # (test code = NT#) 7.74 K/mm3 1.8-7.6 H LYMPHOCYTE # (test code = LY#) 0.5 K/mm3 0.6-3.2 L MONOCYTE # (test code = MO#) 0.5 K/mm3 0.3-1.1 N EOSINOPHIL # (test code = EO#) 0.3 K/mm3 0.0-0.4 N BASOPHIL # (test code = BA#) 0.0 K/mm3 0.0-0.1 N MANUAL DIFF REQUIRED (test code = NO DIFF/SCN CRITERIA MDIFF) BASIC METABOLIC [id number] 12:31:00 Test Item Value Reference Range Interpretation Comments SODIUM (test code = NA) 137 mmol/L 134-147 N POTASSIUM (test code = K) 5.0 mmol/L 3.4-5.0 N CHLORIDE (test code = CL) 102 mmol/L 100-108 N CARBON DIOXIDE (test code = CO2) 29 mmol/L 21-32 N ANION GAP (test code = GAP) 6.0 GAP calc 4.0-15.0 N GLUCOSE (test code = GLU) 126 MG/DL 70-110 H BLOOD UREA NITROGEN (test code = 25 MG/DL 7-18 H BUN) GLOMERULAR FILTRATION RATE (test 56 estGFR >60 L code = GFR) CREATININE (test code = CREAT) 1.0 MG/DL 0.6-1.0 N CALCIUM (test code = CA) 8.5 MG/DL 8.5-10.1 N
[2022-03-10 21:30] LABS: Arterial Blood Carboxyhemoglob 1.6 % (0-1.5); Blood Gas Oxyhemoglobin 93.4 % (94-97); Blood O2 Saturation 95.8 % (92-98.5)
[2022-03-10] MEDS ORDERED: IPRATROPIUM BROM 0.5MG/2.5ML ONE (22:22)
[2022-03-10] MEDS ORDERED: ALBUTEROL 2.5 MG/3 ML NEB SOL ONE (22:23)
[2022-03-10 23:11] LABS: Urine Blood Trace-intact (Negative); Urine Glucose Negative (Negative); Urine Protein Negative (Negative); Urine Specific Gravity 1.015 (1.005-1.030)
[2022-03-10 23:36] LABS: Absolute Lymphocytes (CBC) 2.7 K/uL (0.7-4.9); Hematocrit 39.2 % (36.0-45.0); Lymphocytes % 34.5 % (15.3-44.8); MCV 91.4 fL (80-100); MPV 6.8 fL (7.6-11.3); RBC Red Blood Cell Count 4.29 M/uL (3.86-4.86)
[2022-03-10 23:38] LABS: Protime INR 1.2
[2022-03-10 23:44] LABS: Urine Bacteria >50 /HPF (<20); Urine Urothelial Cells <5 /HPF (NONE SEEN)
[2022-03-10 23:45] LABS: Urine RBC <5 /HPF (NONE SEEN)
[2022-03-10 23:57] LABS: Albumin 3.2 g/dL (3.4-5.0); Bilirubin Direct 0.2 mg/dL (0-0.2); Bilirubin Total 0.5 mg/dL (0.2-1.0); Magnesium 2.1 mg/dL (1.8-2.4); Potassium 3.4 mmol/L (3.5-5.1); Protein, Total 7.3 g/dL (6.4-8.2); Troponin High Sensitivity 25.1 pg/mL (<58.9)
--- NOTE | 2022-03-11 00:07 | EDPHYS ---
Physician Documentation [facility] Name: Melany Schwartz Age: 86 yrs Sex: Female : 1935 Arrival Date: 03/10/2022 Time: 20:36 Bed 26 Private MD: ED Physician Seferino Horner HPI: 03/10 21:12 This 86 yrs old Female presents to ER via EMS with complaints of Chest pain. Shortness mh7 of breath. 21:12 The patient or guardian reports chest pain that is located primarily in the anterior mh7 chest wall, left. Onset: today, at 18:30. The pain does not radiate. Associated signs and symptoms: Pertinent positives: shortness of breath, Pertinent negatives: abdominal pain, cough, diaphoresis, dizziness, headache, lower extremity pain, lower extremity swelling, lightheadedness, nausea, near syncope, palpitations, recent travel, syncope, vomiting. The chest pain is described as sharp. Duration: The patient or guardian reports multiple episodes, that are intermittent, that wax and wane, with no pattern. Modifying factors: The symptoms are alleviated by nothing. the symptoms are aggravated by activity. Severity of pain: At its worst the pain was moderate today, in the emergency department the pain has improved moderately. Historical: - Allergies: 21:04 Morphine; kl - Home Meds: 22:30 isosorbide dinitrate 20 mg Oral tab 1 tab 2 times per day [Active]; amlodipine 5 mg tab kl 1 tab once daily [Active]; Lasix 40 mg Oral tab 1 tab once daily [Active]; levothyroxine 112 mcg cap 1 cap once daily [Active]; warfarin 3 mg Oral tab 1 tab [Active]; warfarin 4 mg Oral tab [Active]; glipizide 5 mg Oral tab 1 tab once daily [Active]; 22:35 Pulmacort [Active]; potassium gluconate 595 mg (99 mg) oral TbER twice a day [Active]; kl - PMHx: 21:04 Chronic obstructive lung disease; Congestive heart failure; Diabetes mellitus; kl Hypertensive disorder; Atrial fibrillation; - PSHx: 21:04 Appendectomy; kl - Immunization history:: Adult Immunizations up to date, Client reports receiving the 2nd dose of the Covid vaccine. - Social history:: Smoking status: Patient/guardian denies using. ROS: 21:12 Constitutional: Negative for fever, chills, and weight loss, Eyes: Negative for injury, mh7 pain, redness, and discharge, ENT: Negative for injury, pain, and discharge, Neck: Negative for injury, pain, and swelling, Abdomen/GI: Negative for abdominal pain, nausea, vomiting, diarrhea, and constipation, Back: Negative for injury and pain, : Negative for injury, bleeding, discharge, and swelling, MS/Extremity: Negative for injury and deformity, Skin: Negative for injury, rash, and discoloration, Neuro: Negative for headache, weakness, numbness, tingling, and seizure, Psych: Negative for depression, anxiety, suicide ideation, homicidal ideation, and hallucinations, Allergy/Immunology: Negative for hives, rash, and allergies, Endocrine: Negative for neck swelling, polydipsia, polyuria, polyphagia, and marked weight changes, Hematologic/Lymphatic: Negative for swollen nodes, abnormal bleeding, and unusual bruising. Exam: 21:12 Head/Face: Normocephalic, atraumatic. Eyes: Pupils equal round and reactive to light, mh7 extra-ocular motions intact. Lids and lashes normal. Conjunctiva and sclera are non-icteric and not injected. Cornea within normal limits. Periorbital areas with no swelling, redness, or edema. Neck: Trachea midline, no thyromegaly or masses palpated, and no cervical lymphadenopathy. Supple, full range of motion without nuchal rigidity, or vertebral point tenderness. No Meningismus. Chest/axilla: Normal chest wall appearance and motion. Nontender with no deformity. No lesions are appreciated. Cardiovascular: Regular rate and rhythm with a normal S1 and S2. No gallops, murmurs, or rubs. Normal PMI, no JVD. No pulse deficits. 21:12 Abdomen/GI: Soft, non-tender, with normal bowel sounds. No distension or tympany. No guarding or rebound. No evidence of tenderness throughout. Back: No spinal tenderness. No costovertebral tenderness. Full range of motion. Skin: Warm, dry with normal turgor. Normal color with no rashes, no lesions, and no evidence of cellulitis. MS/ Extremity: Pulses equal, no cyanosis. Neurovascular intact. Full, normal range of motion. 21:12 Psych: Awake, alert, with orientation to person, place and time. Behavior, mood, and affect are within normal limits. 21:12 Constitutional: The patient appears in no acute distress, alert, awake, uncomfortable. 21:12 Respiratory: mild respiratory distress is noted, Respirations: prolonged exhalation, that is mild, Breath sounds: rhonchi, that are mild, are scattered. 21:12 Neuro: Orientation: is normal, Mentation: is normal, Memory: is normal, Cranial nerves: grossly normal, Cerebellar function: is grossly normal, Motor: is normal, Sensation: is normal, Gait: not tested. seizure activity, is not displayed by the patient, Abnormal movements: there are no abnormal movements. Vital Signs: 21:10 BP 132 / 82; Pulse 88; Resp 19; Temp 98.1; Pulse Ox 95% on 2 lpm NC; Pain 0/10; kl 22:00 BP 132 / 83; Pulse 86; Resp 17; Pulse Ox 98% on 2 lpm NC; Pain 0/10; kl 22:37 BP 138 / 88; Pulse 82; Resp 19; Pulse Ox 95% ; Pain 0/10; kl 23:00 BP 129 / 78; Pulse 84; Resp 18; Pulse Ox 96% ; Pain 0/10; kl 23:00 BP 122 / 53; Pulse 77; Resp 19; Pulse Ox 96% on 2 lpm NC; Pain 0/10; kl 03/11 01:08 Weight 74.84 kg (R); kl MDM: 00:03 Differential diagnosis: abnormal EKG, acute myocardial infarction, acute pericarditis, mh7 anxiety, coronary artery disease chest wall pain, congestive heart failure costochondritis, esophagitis, gastroesophageal reflux disease (GERD), pleurisy, pneumonia, pneumothorax. HEART Score: History: Moderately Suspicious (1), ECG: Non specific repolarization disturbance / LBTB / PM (1), Age: > or = 65 years (2), Risk Factors: 1 or 2 risk factors (1), [Hypertension] [DM] Troponin: < or = 1 x Normal Limit (0), Total Score = 5. Data reviewed: vital signs, nurses notes, lab test result(s), cardiac enzymes, CBC, electrolytes, EKG, radiologic studies, plain films. Data interpreted: Pulse oximetry: on 2L(s) per nasal canula, is 95 %. Interpretation: acceptable. Counseling: I had a detailed discussion with the patient and/or guardian regarding: the historical points, exam findings, and any diagnostic results supporting the discharge/admit diagnosis, the presence of at least one elevated blood pressure reading (>120/80) during this emergency department visit, lab results, radiology results, the need for further work-up and treatment in the hospital. Response to treatment: the patient's symptoms have mildly improved after treatment. 00:06 Patient medically screened. [facility] 03/10 21:08 Order name: Basic Metabolic Panel; Complete Time: 00:02 [facility] 03/10 21:08 Order name: CBC with Diff; Complete Time: 23:55 [facility] 03/10 21:08 Order name: LFT's; Complete Time: 00:02 [facility] 03/10 21:08 Order name: Magnesium; Complete Time: 00:02 [facility] 03/10 21:08 Order name: NT PRO-BNP; Complete Time: 00:02 [facility] 03/10 21:08 Order name: PT-INR; Complete Time: 23:55 [facility] 03/10 21:08 Order name: Troponin HS; Complete Time: 00:02 [facility] 03/10 21:09 Order name: Arterial Blood Gas; Complete Time: 22:32 [facility] 03/10 21:10 Order name: COVID-19 SARS RT PCR (Document "Date of Onset" if Symptomatic); Complete [facility] Time: 23:30 03/10 21:10 Order name: Influenza Screen (a \\T\\ B); Complete Time: 23:30 [facility] 03/10 23:11 Order name: Urine Culture [facility] 03/10 23:11 Order name: Urine Microscopic Only; Complete Time: 23:55 [facility] 03/10 23:11 Order name: Urine Dipstick-Ancillary; Complete Time: 23:30 [facility] 03/11 05:23 Order name: CBC with Automated Diff [facility] 03/10 21:08 Order name: XRAY Chest (1 view) [facility] 03/10 21:08 Order name: EKG; Complete Time: 21:09 [facility] 03/10 21:08 Order name: Cardiac monitoring; Complete Time: 22:11 [facility] 03/11 05:33 Order name: Protime (+INR) [facility] 03/11 05:33 Order name: Comprehensive Metabolic Panel [facility] 03/11 05:33 Order name: Troponin High Sensitivity [facility] 03/11 05:33 Order name: Magnesium [facility] 03/11 08:11 Order name: Glucose, Ancillary Testing [facility] 03/10 21:08 Order name: EKG - Nurse/Tech; Complete Time: 22:11 [facility] 03/10 21:08 Order name: IV Saline Lock; Complete Time: 22:11 [facility] 03/10 21:08 Order name: Labs collected and sent; Complete Time: 22:12 [facility] 03/10 21:08 Order name: O2 Per Protocol; Complete Time: 22:12 [facility] 03/10 21:08 Order name: O2 Sat Monitoring; Complete Time: 22:12 [facility] 03/10 21:11 Order name: Urine Dipstick-Ancillary (obtain specimen); Complete Time: 23:10 [facility] Administered Medications: 03/10 22:15 Drug: Albuterol 2.5 mg Route: Inhalation; 03/11 00:19 Not Given (Given by EMS TELECOMMUNICATIONS REPAIRER): Aspirin 325 mg PO once 01:24 Drug: Rocephin (cefTRIAXone) 1 grams Route: IV; Rate: per protocol; Site: right kl antecubital; 01:24 Drug: Potassium Effervescent Tablet 50 mEq Route: PO; kl 01:24 Drug: Lasix (furosemide) 40 mg Route: IVP; Site: right antecubital; 01:24 Drug: Lovenox (enoxaparin) 1 mg/kg Route: Sub-Q; Site: left lower abdomen; 02:27 Drug: Warfarin 4 mg Route: PO; Disposition Summary: 03/11/22 00:06 Hospitalization Ordered Hospitalization Status: Inpatient Admission [facility] Provider: Bronson Lutz [facility] Condition: Fair [facility] Problem: an acute exacerbation [facility] Symptoms: have improved [facility] Bed/Room Type: Standard [facility] Location: Telemetry/MedSurg (Inpatient)(03/11/22 07:11) Room Assignment: [facility](03/11/22 07:11) Diagnosis - Acute on chronic combined systolic (congestive) and diastolic (congestive) heart [facility] failure - Chest pain, unspecified [facility] Forms: - Medication Reconciliation Form [facility] - SBAR form [facility] Signatures: Dispatcher [employer] [facility] Debi Ochoa Kimberly, RN RN Maykel Brennan FNP-C REGULATORY COMPLIANCE DIRECTOR-Cla1 Angelica Pollack, RN RN cg Seferino Horner MD MD 7 Corrections: (The following items were deleted from the chart) 00: 00:06 Telemetry/MedSurg (Inpatient) mh7 cg : 00:06 mh7 cg 07: 00:23 [facility] ER HOLD cg bd 07: 00:23 ERHOLD- cg bd
--- NOTE | 2022-03-11 00:07 | ER ---
Nurse's Notes [facility] Name: Melany Schwartz Age: 86 yrs Sex: Female : 1935 Arrival Date: 03/10/2022 Time: 20:36 Bed 26 Private MD: Diagnosis: Acute on chronic combined systolic (congestive) and diastolic (congestive) heart failure;Chest pain, unspecified Presentation: 03/10 21:01 Chief complaint: Patient states: sudden onset left chest wall pain resolved at this kl time SOB noted Pt reports this is normal for her Uses O2 t night. Coronavirus screen: Vaccine status: Patient reports receiving the 2nd dose of the covid vaccine. Ebola Screen: Patient negative for fever greater than or equal to 101.5 degrees Fahrenheit, and additional compatible Ebola Virus Disease symptoms. Initial Sepsis Screen: Does the patient meet any 2 criteria? No. Patient's initial sepsis screen is negative. Risk Assessment: Do you want to hurt yourself or someone else? Patient reports no desire to harm self or others. Onset of symptoms was March 10, 2022 at 19:30. Care prior to arrival: Medication(s) given: ASA, 325 mg, IV initiated. 22 GA, in the right antecubital area, Oxygen administered. via nasal cannula. 21:01 Method Of Arrival: EMS: [facility] 21:01 Acuity: ADOLFO 3 21:17 Note pt reports has defibrillator sees dr Duran history of breast cancer. 03/11 01:10 Initial Sepsis Screen: Does the patient have a suspected source of infection? No. kl Patient's initial sepsis screen is negative. Triage Assessment: 03/10 21:08 General: Appears in no apparent distress. well groomed, well developed, Behavior is kl calm, cooperative. Pain: Denies pain. EENT: No deficits noted. Neuro: No deficits noted. Cardiovascular: No deficits noted. Reports chest pain. Respiratory: Airway is patent Respiratory effort is labored, Respiratory pattern is regular, Breath sounds are clear. GI: No deficits noted. : No deficits noted. Derm: No deficits noted. Musculoskeletal: No deficits noted. Historical: - Allergies: 21:04 Morphine; kl - Home Meds: 22:30 isosorbide dinitrate 20 mg Oral tab 1 tab 2 times per day [Active]; amlodipine 5 mg tab kl 1 tab once daily [Active]; Lasix 40 mg Oral tab 1 tab once daily [Active]; levothyroxine 112 mcg cap 1 cap once daily [Active]; warfarin 3 mg Oral tab 1 tab [Active]; warfarin 4 mg Oral tab [Active]; glipizide 5 mg Oral tab 1 tab once daily [Active]; 22:35 Pulmacort [Active]; potassium gluconate 595 mg (99 mg) oral TbER twice a day [Active]; kl - PMHx: 21:04 Chronic obstructive lung disease; Congestive heart failure; Diabetes mellitus; kl Hypertensive disorder; Atrial fibrillation; - PSHx: 21:04 Appendectomy; kl - Immunization history:: Adult Immunizations up to date, Client reports receiving the 2nd dose of the Covid vaccine. - Social history:: Smoking status: Patient/guardian denies using. Screenin:14 Abuse screen: Denies threats or abuse. Nutritional screening: No deficits noted. Tuberculosis screening: No symptoms or risk factors identified. Fall Risk Secondary diagnosis (15 points) Ambulatory Aid- Crutches/Cane/Walker (15 pts). Sepsis Screening: . Infection: Patient has no suspected or documented infection. Pneumonia Screening: Shortness of Breath (3pts). Assessment: 21:14 General: Appears in no apparent distress. Pain: Denies pain. Neuro: No deficits noted. Vital Signs: 21:10 BP 132 / 82; Pulse 88; Resp 19; Temp 98.1; Pulse Ox 95% on 2 lpm NC; Pain 0/10; kl 22:00 BP 132 / 83; Pulse 86; Resp 17; Pulse Ox 98% on 2 lpm NC; Pain 0/10; kl 22:37 BP 138 / 88; Pulse 82; Resp 19; Pulse Ox 95% ; Pain 0/10; kl 23:00 BP 129 / 78; Pulse 84; Resp 18; Pulse Ox 96% ; Pain 0/10; kl 23:00 BP 122 / 53; Pulse 77; Resp 19; Pulse Ox 96% on 2 lpm NC; Pain 0/10; kl 03/11 01:08 Weight 74.84 kg (R); ED Course: 03/10 20:36 Patient arrived in ED. mw2 20:41 Seferino Horner MD is Attending Physician. 7 21:04 Triage completed. kl 21:16 Client placed on continuous cardiac and pulse oximetry monitoring. NIBP monitoring kl applied. classroom monitor on. Pulse ox on. NIBP on. 22:11 XRAY Chest (1 view) In Process Unspecified. EDMS 22:13 COVID-19 SARS RT PCR (Document "Date of Onset" if Symptomatic) Sent. kl 22:13 Influenza Screen (a \\T\\ B) Sent. kl 22:13 Basic Metabolic Panel Sent. kl 22:13 CBC with Diff Sent. kl 22:13 LFT's Sent. kl 22:40 Door closed. Noise minimized. Warm blanket given. Head of bed Elevated. 03/11 00:01 No apparent distress. Resting quietly. 00:05 Bronson Lutz MD is Hospitalizing Provider. [facility] 01:09 Arm band placed on right wrist. EKG completed in triage. Results shown to MD. 01:09 No provider procedures requiring assistance completed. Maintain EMS IV. Dressing kl intact. Good blood return noted. Site clean \\T\\ dry. Flushed. 01:10 Patient has correct armband on for positive identification. Placed in gown. Bed in low kl position. Call light in reach. Side rails up X2. 01:10 Patient admitted, IV remains in place. kl Administered Medications: 03/10 22:15 Drug: Albuterol 2.5 mg Route: Inhalation; 03/11 00:19 Not Given (Given by EMS TOOTH CUTTER CLUTCH): Aspirin 325 mg PO once kl 01:24 Drug: Rocephin (cefTRIAXone) 1 grams Route: IV; Rate: per protocol; Site: right kl antecubital; 01:24 Drug: Potassium Effervescent Tablet 50 mEq Route: PO; kl 01:24 Drug: Lasix (furosemide) 40 mg Route: IVP; Site: right antecubital; kl 01:24 Drug: Lovenox (enoxaparin) 1 mg/kg Route: Sub-Q; Site: left lower abdomen; 02:27 Drug: Warfarin 4 mg Route: PO; Medication: 01:10 VIS not applicable for this client. Outcome: 00:06 Decision to Hospitalize by Provider. [facility] 01:09 Condition: good kl 01:09 Admitted to ER Hold. Please see [facility] for further documentation. 10:44 Patient left the ED. iw Signatures: Dispatcher [employer] Galilea Delgado, RN Tiana Grey RN RN iw [place], Hasmukh mw2 Seferino Horner MD MD 7
[2022-03-11] MEDS ORDERED: FUROSEMIDE 40 MG/4 ML VIAL ONE (00:29)
[2022-03-11] MEDS ORDERED: CEFTRIAXONE 1000 MG/VIAL ONE ×2 (00:29→21:42)
[2022-03-11] MEDS ORDERED: POTASSIUM 25 MEQ EFFERV TAB ONE (00:29)
[2022-03-11] MEDS ORDERED: NA CHLORIDE 0.9% 100 ML ONE (00:29)
[2022-03-11] MEDS ORDERED: ENOXAPARIN 80 MG/0.8 ML SQ ONE (01:21)
--- NOTE | 2022-03-11 01:40 | P.HP ---
Certification for Inpatient Patient admitted to: Observation With expected LOS: <2 Midnights Patient will require the following post-hospital care: None Practitioner: I am a practitioner with admitting privileges, knowledge of patient current condition, hospital course, and medical plan of care. Services: Services provided to patient in accordance with Admission requirements found in Title 42 Section 412.3 of the Code of Federal Regulations <Maykel Najera - Last Filed: 03/11/22 01:35> Patient History Date of Service: 03/11/22 Reason for admission: Chest pain History of Present Illness: 86-year-old female with history of atrial fibrillation on chronic anticoagulation therapy with warfarin, diabetes mellitus type 2 [id number], chronic diastolic congestive heart failure, hypertension, COPD on home oxygen at night presents the emergency department for chest pain. She reports that she had a episode of left-sided chest pain described as sharp lasted for about 1 minute with associated shortness of breath. Patient was brought to the emergency department for evaluation her labs were significant for moderately elevated BNP as well as urinary tract infection chest x-ray showed mild CHF pattern. Patient on nasal cannula 2 L tolerating as well which she has at home her INR was subtherapeutic she reports she is been without her warfarin for the last few days with pharmacy was unable to fill it. Will admit patient for ACS rule out. - Past Medical/Surgical History Diabetic: Yes -: CHF -: DM2 -: A. fib on warfarin -: Hypertension -: COPD on home oxygen at night -: Cholecystectomy -: Appendectomy -: Bilateral knee surgeries Psychosocial/ Personal History: Patient lives at home alone, is . - Family History Mother -: Heart disease - Social History Smoking Status: Former smoker Alcohol use: Yes CD- Drugs: No Caffeine use: Yes Place of Residence: Home <Maykel Najera - Last Filed: 03/11/22 01:35> Date of Service: 03/12/22 <Lobo Hawthorne - Last Filed: 03/12/22 23:54> Allergies morphine Allergy (Verified 02/02/13 06:33) Nausea/Vomiting Home Medications: Acetaminophen [Tylenol Extra Strength*] 1,000 mg PO DAILY 02/02/13 Ascorbic Acid [Vitamin C*] 500 mg PO DAILY 02/02/13 Aspirin Enteric Coated [ASPIRIN 81 MG EC*] 81 mg PO DAILY WITH BREAKFAST 02/02/13 Calcium Carbonate/Vitamin D3 [Calcium 600-Vit D3 400 Tablet] 1 each PO BID 02/02/13 Clotrim/Betameth Cream [Lotrisone Cream*] 15 gm TP DAILYPRN PRN 02/02/13 Cranberry Fruit Concentrate [Cranberry] 3,200 mg PO DAILY 02/02/13 Cyanocobalamin [Vitamin B-12*] 1,000 mcg PO DAILY WITH BREAKFAST 02/02/13 Garlic Capsule 1 cap PO DAILY 02/02/13 Glipizide [Glipizide Xl] 5 mg PO BID 02/02/13 Liothyronine [Cytomel*] 5 mcg PO DAILY 02/02/13 Loteprednol Etabonate [Alrex] 1 drop OD DAILY 02/02/13 Montelukast [Singulair*] 10 mg PO BEDTIME PRN 02/02/13 Multivit-Min/Iron Fum/Folic AC [Multivitamin-Minerals Tablet] 1 tab PO DAILY 02/02/13 Cutler-3 Fatty Acids [Fish Oil] 1,000 mg PO DAILY 02/02/13 Pantoprazole [Protonix Tab*] 40 mg PO DAILY 02/02/13 Potassium 99 mg PO QOD QID 02/02/13 Ranitidine HCl [Zantac 75] 75 mg PO DAILY 02/02/13 Albuterol [Proventil] 2 puff IH QIDP PRN #1 aerosol 02/12/13 Fluticasone/Salmeterol [Advair 100/50 Diskus*] 1 puff IH BID #3 disk 02/12/13 Furosemide [Lasix*] 40 mg PO DAILY #90 tab 02/12/13 Levothyroxine Sodium [Levoxyl] 125 mcg PO DAILY #90 tablet 02/12/13 Isosorbide Dinit [Isordil*] 20 mg PO BID 03/11/22 Montelukast Sodium [Singulair] 10 mg PO DAILY 03/11/22 Warfarin Sodium [Coumadin*] 3 mg PO M,W,F 03/11/22 Warfarin Sodium [Coumadin*] 4 mg PO T,TH,S 03/11/22 Zinc Gluconate [Zinc Gluconate*] 25 mg PO DAILY 03/11/22 Amlodipine [Norvasc*] 5 mg PO DAILY #30 tab 03/12/22 Review of Systems 10-point ROS is otherwise unremarkable Respiratory: Shortness of Breath, As per HPI Cardiovascular: Chest Pain <Maykel Najera - Last Filed: 03/11/22 01:35> Physical Examination - Physical Exam General: Alert, In no apparent distress, Oriented x3 HEENT: Atraumatic, PERRLA, Mucous membr. moist/pink, EOMI, Sclerae nonicteric Neck: Supple, 2+ carotid pulse no bruit, No LAD, Without JVD or thyroid abnormality Respiratory: Diminished, Crackles/rales Cardiovascular: Normal S1 S2, Irregular heart rate/rhythm (A. fib, rate controlled) Capillary refill: <2 Seconds Gastrointestinal: Normal bowel sounds, No tenderness Musculoskeletal: No tenderness Integumentary: No rashes Neurological: Normal speech, Normal strength at 5/5 x4 extr, Normal tone, Normal affect - Studies Laboratory Data (last 24 hrs) 03/10/22 22:45: PT 13.2 H, INR 1.20 03/10/22 22:45: WBC 7.8, Hgb 13.2, Hct 39.2, Plt Count 237 03/10/22 22:45: Sodium 138, Potassium 3.4 L, BUN 26 H, Creatinine 0.96, Glucose 88, Magnesium 2.1, Total Bilirubin 0.5, AST 19, ALT 15, Alkaline Phosphatase 86 Microbiology Data (last 24 hrs): 03/10/22 21:55 Nasopharnyx Influenza Type A Antigen Screen - Final 03/10/22 21:55 Nasopharnyx Influenza Type B Antigen Screen - Final <Maykel Najera - Last Filed: 03/11/22 01:35> Assessment and Plan - Plan Assessment: Chest pain rule out ACS Chronic diastolic congestive heart failure Atrial fibrillation on chronic anticoagulation with subtherapeutic INR Diabetes type [id number] Hypertension COPD-on home oxygen at night UTI Plan: Chest pain rule out ACS: Monitor on telemetry, trend troponins, continue home medications aspirin, warfarin, isosorbide. Cardiology consult in place. Pain is atypical does not sound cardiac in etiology. Chronic diastolic congestive heart failure: Continue Lasix 40 p.o. daily in addition to other home medications appears stable from a volume standpoint at this time. Atrial fibrillation on chronic anticoagulation with subtherapeutic INR: Continue medications including warfarin patient reports has been out of her warfarin in the past few days as pharmacy was unable to fill it. Will provide Lovenox 1 mg/kg and reinitiate warfarin. Monitor INR daily. Diabetes type [id number]: ACH S Accu-Chek, sliding scale insulin Hypertension: Home medications continued COPD-on home oxygen at night: Continue home medication, as needed nebs, supplemental oxygen at night. UTI: Continue Rocephin, urine culture sent. DVT PPX: warfarin with Lovenox bridge Code status: Full Discharge Plan: Home Plan to discharge in: 24 Hours - Advance Directives Does patient have a Living Will: No Does patient have a Durable POA for Healthcare: Yes - Code Status/Comfort Care Code Status Assessed: Yes (Full code) Critical Care: No Time Spent Managing Pts Care (In Minutes): 70 <Maykel Najera - Last Filed: 03/11/22 01:35> Date of Service: 03/11/22 SUBJECTIVE: Agree with the HPI as mentioned above OBJECTIVE: Vital Signs: reviewed General: WNL HEENT:WNL CV: WNL Lungs: WNL Abd: WNL Ext: WNL ASSESSMENT: 1. Chest pain rule out acute coronary syndrome PLAN: Plan as mentioned above <Lobo Hawthorne - Last Filed: 03/12/22 23:54>
[2022-03-11] MEDS ORDERED: WARFARIN SODIUM 2 MG TAB ONE (02:06)
[2022-03-11 03:23] VITALS: O2SAT 96; BMI 29.2
[2022-03-11] MEDS ORDERED: ONDANSETRON 4 MG/2 ML VIAL IV PRN (04:29)
[2022-03-11 05:23] LABS: Absolute Lymphocytes (CBC) 2.9 K/uL (0.7-4.9); Hematocrit 40.1 % (36.0-45.0); Lymphocytes % 36.2 % (15.3-44.8); MCV 90.8 fL (80-100); MPV 6.4 fL (7.6-11.3); RBC Red Blood Cell Count 4.41 M/uL (3.86-4.86)
[2022-03-11 05:33] LABS: Albumin 3.2 g/dL (3.4-5.0); Bilirubin Total 0.5 mg/dL (0.2-1.0); Potassium 4.3 mmol/L (3.5-5.1); Protein, Total 7.3 g/dL (6.4-8.2); Protime INR 1.26; Troponin High Sensitivity 26.9 pg/mL (<58.9)
[2022-03-11] MEDS: LEVOTHYROXINE SOD 0.112 MG TAB PO SCH (06:30)
[2022-03-11] MEDS: INSULIN -REGULAR HUMAN 50 UNIT/0.5 ML ML SQ SCH ×4 (07:30→21:00)
[2022-03-11] MEDS: ASPIRIN EC 81 MG TAB PO SCH (10:48)
[2022-03-11] MEDS: AMLODIPINE 5 MG TAB PO SCH (10:48)
[2022-03-11] MEDS: ISOSORBIDE DINIT 20 MG TAB PO SCH ×2 (10:48→21:41)
[2022-03-11] MEDS: FUROSEMIDE 40 MG TABLET PO SCH (10:49)
[2022-03-11] MEDS: ENOXAPARIN 80 MG/0.8 ML SQ SCH (12:11)
[2022-03-11 12:41] LABS: Urine Appearance Clear (Clear); Urine Bilirubin Negative (Negative); Urine Blood Trace-intact (Negative); Urine Color Yellow (Yellow); Urine Glucose Negative (Negative); Urine Protein 1+ (Negative); Urine Urobilinogen 0.2 mg/dL (0.2-1.0); Urine pH 7.5 (5.0-7.0)
[2022-03-11 12:49] LABS: Urine Microscopic Reflex ORDER UMIC
[2022-03-11 13:29] LABS: Urine Bacteria >50 /HPF (<20); Urine RBC <5 /HPF (NONE SEEN)
--- NOTE | 2022-03-11 13:30 | RAD REPORT ---
EXAM DESCRIPTION: RAD - Chest Single View - 03/10/2022 10:09 pm CLINICAL HISTORY: 86 years Female Chest pain TECHNIQUE: One view of the chest. COMPARISON: No prior exams provided for comparison. FINDINGS: Patient obscures the left lung apex. There appears to be a spinal stimulator device in nelsy ce. Increased interstitial markings and mild cardiomegaly could reflect mild pulmonary edema. No focal ai rspace infiltrate, pleural effusion, or pneumothorax. No acute osseous injury noted. Chronic arthrosis of the left shoulder. IMPRESSION: Possible mild congestive failure. Electronically signed by: Denise Fuentes MD 03/10/2022 10:45 PM CDT Due to temporary technical issues with the PACS/Fluency reporting system, reports are being signed by the in house radiologist without review as a courtesy to ensure prompt reporting. The interpreting r adiologist is fully responsible for the content of the report.
--- NOTE | 2022-03-11 14:41 | EKG ---
Test Date: 2022-03-10 Test Time: 20:58:09 [employer]: MARIO MEASUREMENT RESULTS: Intervals: Rate: 83 [place]: 328 QRSD: 164 QT: 462 QTc: 542 [place]: P: 32 AZ: 328 QRS: -69 T: 45 INTERPRETIVE STATEMENTS: Sinus rhythm with 1st degree AV block with frequent premature ventricular complexes Left axis deviation Right bundle branch block Left ventricular hypertrophy with repolarization abnormality Abnormal ECG Compared to ECG 02/07/2013 07:25:33 Ventricular premature complex(es) now present Left-axis deviation now present Left ventricular hypertrophy now present Early repolarization now present Sinus bradycardia no longer present Left anterior fascicular block no longer present Bifascicular block no longer present Electronically Signed On 03-11-22 14:40:16 CDT by Pj Smyth
[2022-03-11] MEDS: ACETAMINOPHEN 325 MG TABLET PO PRN (15:19)
[2022-03-11] MEDS ORDERED: WARFARIN SODIUM 4 MG TAB PO SCH (17:00)
[2022-03-11] MEDS ORDERED: GLIPIZIDE S.A. 5 MG TAB PO SCH (21:00)
[2022-03-11] MEDS ORDERED: NA CHLORIDE 0.9% 50 ML ONE (21:44)
[2022-03-12] MEDS ORDERED: CEFTRIAXONE 1,000 MG in NA CHLORIDE 0.9% 50 ML IVPB SCH ×2
[2022-03-12] MEDS: ENOXAPARIN 80 MG/0.8 ML SQ SCH (00:24)
[2022-03-12 05:42] LABS: Absolute Lymphocytes (CBC) 2.2 K/uL (0.7-4.9); Hematocrit 38.6 % (36.0-45.0); Lymphocytes % 34.2 % (15.3-44.8); MCV 91.3 fL (80-100); MPV 6.5 fL (7.6-11.3); RBC Red Blood Cell Count 4.23 M/uL (3.86-4.86)
[2022-03-12 05:43] LABS: Protime INR 1.33
[2022-03-12 06:00] LABS: Albumin 2.9 g/dL (3.4-5.0); Bilirubin Total 0.6 mg/dL (0.2-1.0); Magnesium 1.9 mg/dL (1.8-2.4); Potassium 3.7 mmol/L (3.5-5.1); Protein, Total 6.7 g/dL (6.4-8.2)
[2022-03-12] MEDS: LEVOTHYROXINE SOD 0.112 MG TAB PO SCH (06:08)
[2022-03-12] MEDS ORDERED: POTASSIUM CL SA 10 MEQ TAB PO ONE (09:00)
[2022-03-12] MEDS: AMLODIPINE 5 MG TAB PO SCH (09:16)
[2022-03-12] MEDS: FUROSEMIDE 40 MG TABLET PO SCH (09:17)
[2022-03-12] MEDS: ASPIRIN EC 81 MG TAB PO SCH (09:17)
[2022-03-12] MEDS: ACETAMINOPHEN 325 MG TABLET PO PRN (09:26)
[2022-03-12] MEDS: ISOSORBIDE DINIT 20 MG TAB PO SCH (09:26)
[2022-03-12 12:02] VITALS: BP 126/85; TEMP 99.5
--- NOTE | 2022-03-12 13:08 | CON ---
Date of Consultation: 03/11/[address] Lutz on 03/10/2022. I saw the patient on 03/11/2022. Reason For Consultation: Chest pain and shortness of breath. History Of Present Illness: Ms. Schwartz is 86. Has a history of atrial fibrillation, diastolic congest gloria heart failure, COPD, hypertension, and diabetes. Comes in with shortness of breath, atypical [address] pain. BNP is 1031. She had UTI. EKG was unremarkable. Chest x-ray is unremarkable. Troponin a nd BNP were negative. She normally follows up with Dr. Duran. She denied any nausea, vomiting, di aphoresis, PND, orthopnea, pedal edema, palpitations, or syncope. Past Medical History: As stated above. Allergies: SHE IS ALLERGIC TO MORPHINE. Review of Systems: Negative. Social History: Negative. Family History: Noncontributory. Physical Examination: Vital Signs: Stable, afebrile. HEENT: Negative. Neck: Supple with no bruit. Chest: Clear. Cardiac: Revealed a regular rhythm and rate. No murmurs, gallops, or rubs. Abdomen: Benign. Extremities: Revealed no clubbing, cyanosis, or edema. Diagnostic Data: As stated earlier. Impression And Plan: Acute on chronic diastolic congestive heart failure with possible chronic obstr uctive pulmonary disease exacerbation. I will continue her present regimen including aspirin, Norvas c, thyroid, antibiotic, Lovenox, Lasix, glipizide, Imdur, and atrial fibrillation. She is rate contr olled. Her diabetes and hypertension are well controlled. I will send Ms. Schwartz home whenever it is okay with Dr. Lutz and she will follow up with Dr. Duran in the near future. No further cardiac w orkup recommended at this time. NB/MODL Voice ID: [id number] Report ID: [id number]
--- NOTE | 2022-03-12 23:55 | P.DS ---
Discharge Date: 03/12/22 Disposition: ROUTINE DISCHARGE Discharge Condition: GOOD Reason for Admission: Chest pain Brief History of Present Illness: 86-year-old female with history of atrial fibrillation on chronic anticoagulation therapy with warfarin, diabetes mellitus type [id number], chronic diastolic congestive heart failure, hypertension, COPD on home oxygen at night presents the emergency department for chest pain. She reports that she had a episode of left-sided chest pain described as sharp lasted for about 1 minute with associated shortness of breath. Patient was brought to the emergency department for evaluation her labs were significant for moderately elevated BNP as well as urinary tract infection chest x-ray showed mild CHF pattern. Patient on nasal cannula 2 L tolerating as well which she has at home her INR was subtherapeutic she reports she is been without her warfarin for the last few days with pharmacy was unable to fill it. Will admit patient for ACS rule out. Hospital Course: Patient has done well during hospital stay. Clinically, patient is much better. At this time, patient is stable for discharge home. Patient will follow-up with consultants and PCP as an outpatient. patient will follow-up with cardiology as an outpatient. Vital Signs/Physical Exam: Temp Pulse Resp BP Pulse Ox 99.5 F 54 18 126/85 91 03/12/22 12:00 03/12/22 12:00 03/12/22 12:00 03/12/22 12:00 03/12/22 12:00 General: Alert, In no apparent distress, Oriented x3 Laboratory Data at Discharge: WBC 6.4 K/uL (4.3-10.9) D 03/12/22 05:20 Hgb 13.0 g/dL (12.0-15.0) 03/12/22 05:20 Hct 38.6 % (36.0-45.0) 03/12/22 05:20 Plt Count 236 K/uL (152-406) 03/12/22 05:20 PT 14.7 SECONDS (9.5-12.5) H 03/12/22 05:20 INR 1.33 03/12/22 05:20 Sodium 140 mmol/L (136-145) 03/12/22 05:20 Potassium 3.7 mmol/L (3.5-5.1) 03/12/22 05:20 BUN 22 mg/dL (7-18) H 03/12/22 05:20 Creatinine 0.93 mg/dL (0.55-1.3) 03/12/22 05:20 Glucose 79 mg/dL (74-106) 03/12/22 05:20 Magnesium 1.9 mg/dL (1.8-2.4) 03/12/22 05:20 Total Bilirubin 0.6 mg/dL (0.2-1.0) 03/12/22 05:20 AST 17 U/L (15-37) 03/12/22 05:20 ALT 14 U/L (12-78) 03/12/22 05:20 Alkaline Phosphatase 79 U/L (45-117) 03/12/22 05:20 Home Medications: Acetaminophen [Tylenol Extra Strength*] 1,000 mg PO DAILY 02/02/13 Ascorbic Acid [Vitamin C*] 500 mg PO DAILY 02/02/13 Aspirin Enteric Coated [ASPIRIN 81 MG EC*] 81 mg PO DAILY WITH BREAKFAST 02/02/13 Calcium Carbonate/Vitamin D3 [Calcium 600-Vit D3 400 Tablet] 1 each PO BID 02/02/13 Clotrim/Betameth Cream [Lotrisone Cream*] 15 gm TP DAILYPRN PRN 02/02/13 Cranberry Fruit Concentrate [Cranberry] 3,200 mg PO DAILY 02/02/13 Cyanocobalamin [Vitamin B-12*] 1,000 mcg PO DAILY WITH BREAKFAST 02/02/13 Garlic Capsule 1 cap PO DAILY 02/02/13 Glipizide [Glipizide Xl] 5 mg PO BID 02/02/13 Liothyronine [Cytomel*] 5 mcg PO DAILY 02/02/13 Loteprednol Etabonate [Alrex] 1 drop OD DAILY 02/02/13 Montelukast [Singulair*] 10 mg PO BEDTIME PRN 02/02/13 Multivit-Min/Iron Fum/Folic AC [Multivitamin-Minerals Tablet] 1 tab PO DAILY 02/02/13 Curlew-3 Fatty Acids [Fish Oil] 1,000 mg PO DAILY 02/02/13 Pantoprazole [Protonix Tab*] 40 mg PO DAILY 02/02/13 Potassium 99 mg PO QOD QID 02/02/13 Ranitidine HCl [Zantac 75] 75 mg PO DAILY 02/02/13 Albuterol [Proventil] 2 puff IH QIDP PRN #1 aerosol 02/12/13 Fluticasone/Salmeterol [Advair 100/50 Diskus*] 1 puff IH BID #3 disk 02/12/13 Furosemide [Lasix*] 40 mg PO DAILY #90 tab 02/12/13 Levothyroxine Sodium [Levoxyl] 125 mcg PO DAILY #90 tablet 02/12/13 Isosorbide Dinit [Isordil*] 20 mg PO BID 03/11/22 Montelukast Sodium [Singulair] 10 mg PO DAILY 03/11/22 Warfarin Sodium [Coumadin*] 3 mg PO M,W,F 03/11/22 Warfarin Sodium [Coumadin*] 4 mg PO T,TH,S 03/11/22 Zinc Gluconate [Zinc Gluconate*] 25 mg PO DAILY 03/11/22 Amlodipine [Norvasc*] 5 mg PO DAILY #30 tab 03/12/22 New Medications: Amlodipine [Norvasc*] 5 mg PO DAILY #30 tab Physician Discharge Instructions: OK TO DC IV AND DC HOME FOLLOW-UP WITH PRIMARY CARE PROVIDER IN 1-2 WEEKS RETURN TO THE ER IF Symptoms worsen CALL DR. ANNE AT [phone] IF ANY QUESTIONS REGARDING HOSPITAL STAY. PLEASE CALL THE FLOOR AT [phone] IF ANY MEDICATION OR NURSING QUESTIONS. Diet: AHA Activity: Fall precautions Followup: Santy Brown MD [Primary Care Provider] - 1-2 Weeks (call to schedule an appointment ) Time spent managing pt's care (in minutes): 35
== END 2022-03-12 13:02 | disposition home or self-care (01) ==
LOC: ER 20:32 → ERHOLD 03-11 01:37 → 2ND 03-11 09:30
PROVIDERS: ADMIT Hospitalist; ATTEND Hospitalist
DX: I11.0 Hypertensive heart disease with heart failure (principal); I50.33 Acute on chronic diastolic (congestive) heart failure; I48.91 Unspecified atrial fibrillation; J44.9 Chronic obstructive pulmonary disease, unspecified; N39.0 Urinary tract infection, site not specified; E11.9 Type 2 diabetes mellitus without complications; Z99.81 Dependence on supplemental oxygen; Z79.01 Long term (current) use of anticoagulants; Z79.82 Long term (current) use of aspirin; Z79.899 Other long term (current) drug therapy; Z88.5 Allergy status to narcotic agent; Z87.891 Personal history of nicotine dependence; Z90.49 Acquired absence of other specified parts of digestive tract; Z20.822 Contact with and (suspected) exposure to COVID-19; Z82.49 Family history of ischemic heart disease and other diseases of the circulatory system
CPT/HCPCS: 36415; 71045; 80048; 80053; 80076; 81003; 81015; 82805; 82947; 83735; 83880; 84484; 85025; 85610; 87077; 87086; 87088; 87186; 87804; 93005; 96372; 96374; 96375; 99285; G0378; J1940; U0003

== ENCOUNTER 2022-08-15 13:34 | Emergency (ER) | payer OTHER ==
--- OUTSIDE RECORDS SUMMARY | 2022-08-15 13:44 | XMS REPORT | Continuity of Care Document ---
:1935 Author Organization [facility] t Address [address] [place] [address] Care Team Providers Name Role Phone SANTY BARFIELD Primary Care Physician Unavailable Vernon Vieira Attending Clinician Unavailable Nicole Whitfield RN Attending Clinician Unavailable JB WELLS Attending Clinician Unavailable HILDA RICARDO Attending Clinician Unavailable 1, [facility] Attending Clinician Unavailable Khadijah Saul MD Attending Clinician Doctor Unassigned, [place] Attending Clinician Unavailable José Sanchez Attending Clinician NARAYAN HUYNH NATASHA Attending Clinician Unavailable Sean Duran Admitting Clinician Unavailable HILDA RICARDO Admitting Clinician Unavailable José Sanchez Admitting Clinician NARAYAN HUYNH NATASHA Admitting Clinician Unavailable Payers Payer Name Policy Type Policy Number Effective Date Expiration Date S ource AETNA MEDICARE ADV [id number] 2013 00:00:00 AETM AETM [id number] Problems Condition Condition Condition Status Onset Resolution [...] Disease Active Univers 9-04 ity of 00:00: [place] 00 Medical Branch [place] Problem Active 2019-03-10 Malathi wilks coli [place] 02-20 22:16:39 l (organism) a coli 00:00: [place] (organism) 00 Active 02/20/2019 Problem 03/10/2019 urine, 02/20/2019<b r/>Problem added by Discern Expert. 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 [place] HYDRONEPHR HYDRONEPH Diagnosis Active 2019-03-11 DEANNE Cormier, 02-20 22:14:00 l SEPTIC SEPTIC 00:00: [place] SHOCK, SHOCK, 00 ACUTE CYST ACUTE CYST Active 02/20/2019 [facility] ACUTE ACUTE Diagnosis Active 2019-02-21 Mem oria HYPOXEMIC HYPOXEMIC 02-20 09:49:00 l RESPIRATOR RESPIRATOR 00:00: He rmann Y FAILURE, Y FAILURE, 00 LM LM Active 9 [facility] OTHER OTHER Diagnosis Active 2019-02-20 Mem oria Active 02-20 19:42:00 l 02/20/2019 00:00: [place] [facility] 00 [place] Fall from Fall from Disease Active Overview: Univers standing, standing, 5-20 Added ity of initial initial 00:00: automatic [place] encounter encounter 00 ally from M edical request Branch for surgery [id number] Periprosth Periprosth Disease Active Overview : Univers etic etic 5-20 Added ity of fracture fracture 00:00: automatic Demetrio as around around 00 ally from Medical internal internal request Branc h 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, joint, [id number] initial initial encounter encounter Femur Femur Disease Active Univers fracture, fracture, 5-20 ity of left left 00:00: [place] 00 Medical Branch Obesity Obesity Disease Active Univers (BMI (BMI 02-07 ity of 30-39.9) 30-39.9) 00:00: [place] 00 Medical Branch Pneumonia Pneumonia Disease Active Uni vers 02-07 ity of 00:00: [place] [facility] FEMUR FX FEMUR FX Diagnosis Active 2013-10-21 Memoria Active 10-05 21:46:00 l 10/05/2013 00:00: [place] [address] DISTAL DISTAL Diagnosis Active 2013-10-06 Me moria FEMUR FEMUR 10-05 01:35:00 l FRACTURE FRACTURE 00:00: [place] Active 00 10/05/2013 [facility] Cardiac Cardiac Problem Resolve 2019-03-10 M emoria arrest arrest d 22:16:39 l (disorder) (disorder) He rmann Resolved Problem 03/10/2019 [facility] 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 22:16:39 l failure failure Vinnie (disorder) (disorder) Resolved Problem 03/10/2019 [facility] Cerebrovas Cerebrova Problem Resolve 2019-03-10 Memoria cular scular d 22:16:39 l accident accident [place] (disorder) (disorder) Resolved Problem 03/10/2019 [facility] Diabetes Diabetes Problem Resolve 2019-03-10 Memoria mellitus mellitus d 22:16:39 l (disorder) (disorder) He rmann Resolved Problem 03/10/2019 [facility] Hypertensi Hypertens Problem Resolve 2019-03-10 Memoria ve gloria d 22:16:39 l disorder, disorder, Herm avis systemic systemic arterial arterial (disorder) (disorder) Resolved Problem 03/10/2019 [facility] Hypothyroi Hypothyro Problem Resolve 2019-03-10 Memoria dism idism d 22:16:39 l (disorder) (disorder) He rmann Resolved Problem 03/10/2019 [facility] Irritable Problem Resolve 2019-03-10 M emoria colon Irritable d 22:16:39 l (disorder) colon [place] (disorder) Resolved Problem 03/10/2019 [facility] 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 l d 22:16:39 l (disorder) infarction He rmann (disorder) Resolved Problem 03/10/2019 [facility] Urinary Urinary Problem Resolve 2019-03-10 M emoria tract tract d 22:16:39 l infectious infectious He rmann disease disease (disorder) (disorder) Resolved Problem 03/10/2019 [facility] HYDRONEPHR HYDRONEPH Diagnosis Active 2019-03-11 Memoria OSIS WITH ROSIS WITH 22:14:00 l URETEROPEL URETEROPEL He rmann [place] JUNCTI WE[place] JUNCTI Active [facility] ACUTE ACUTE Diagnosis Active 2019-02-21 Mem oria RESPIRATOR RESPIRATOR 09:49:00 l Y FAILURE Y FAILURE Herm avis WITH WITH HYPOXIA HYPOXIA Active [facility] SEVERE SEVERE Diagnosis Active 2019-03-11 Me moria SEPSIS SEPSIS 22:14:00 l WITH WITH [place] SEPTIC SEPTIC SHOCK SHOCK Active [facility] UNSPECIFIE Diagnosis Active 2019-02-21 Memoria D UNSPECIFIE 09:49:00 l BACTERIAL D [place] PNEUMONIA BACTERIAL PNEUMONIA Active [facility] FX FEMUR FX FEMUR Diagnosis Active 2013-10-21 Memoria NOS-CLOSED NOS-CLOSED 21:46:00 l Active [place] [facility] Acute Acute Problem 2019-03-10 Memor ia respirator respirator 22:16:39 l y failure y failure Herm avis with with hypoxia hypoxia 03/10/2019 [facility] Asthma Asthma Problem Resolve 2019-03-10 Mem oria (disorder) (disorder) d 22:16:39 l Resolved [place] Problem 03/10/2019 [facility] 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 8-14 22:16:39 22:16:39 l breast breast 00:00: [place]innie (disorder) (disorder) 00 Resolved 04/28/1999 Problem 03[facility]10/[facility] Allergies, Adverse Reactions, Alerts Allergy Allergy Status Severity Reaction(s) Onset Inactive Treating Comm ents Source Name Type Date Date Clinician morphine DA Active SV 2020- [facility] 10-05 00:00: [address] neomycin DA Active [facility] 2020-0 [facility] 10-05 00:00: [address] bacitrac DA Active SV 2020- [facility] in 10-05 00:00: [address] polymyxi DA Active SV [facility] n B 10-05 00:00: [address] morphine DA Active SV RESPIRATORY [facility] DISTRESS 10-05 00:00: [address] neomycin DA Active SV BLISTERS 2020- [facility] 10-05 00:00: [address] bacitrac DA Active SV BLISTERS 2020- [facility] in 10-05 00:00: [address] polymyxi DA Active SV BLISTERS 2020- [facility] n B 10-05 00:00: [address] CHOCOLAT DRUG Active N/V Univers E FLAVOR INGREDI 02-05 ity of 00:00: [address] Chocolat Propensi Active Nausea Reports Unive rs e Flavor ty to and/or 02-05 allergy ity of adverse Vomiting 00:00: to [place] reaction 00 chocolate Medic al s Branch morphine DA Active SV 2017- [facility] 11-07 00:00: [address] neomycin DA Active SV 2017-0 [facility] 11-07 00:00: [address] bacitrac DA Active SV 2018-0 [facility] in 11-07 00:00: [address] polymyxi DA Active SV 2018-0 [facility] n B 11-07 00:00: [address] morphine DA Active SV RESPIRATORY 2017- [facility] DISTRESS 11-07 00:00: [address] neomycin DA Active SV BLISTERS 2017-0 [facility] 11-07 00:00: [address] bacitrac DA Active SV BLISTERS 2017-0 [facility] in 11-07 00:00: [address] polymyxi DA Active SV BLISTERS 2017-0 [facility] n B 11-07 00:00: [address] MORPHINE DRUG Active SOB 2016- Univers INGREDI 5-25 ity of 00:00: [place] 00 Medical Branch Morphine Propensi Active Shortness of 2017- Throat Univers ty to Breath 5-25 swelling ity of adverse 00:00: [place] reaction 00 Medical s Branch codeine codeine Active Yaneth [place] morphine morphine Active Shubham [place] Social History Social Habit Start Date Stop Date Quantity Comments Source Sex Assigned At [facility] [place] [facility] [place] Exposure to Not sure [place] of SARS-CoV-2 [place] [facility] (event) Branch Tobacco use and 2020-05-18 2020-05-18 Never used Universit y of exposure 00:00:00 00:00:00 [facility] Social History 2019-03-07 2019-03-07 Memorial ermann 23:31:46 23:31:46 Tobacco Comment 2017-02-07 2017-02-07 Quit 40 years Univer sity of 00:00:00 00:00:00 ago [facility] Smoking Status Start Date Stop Date Source Former smoker 2020-05-18 00:00:00 2020-05-18 00:00:00 Universi ty of [facility] Medications Ordered Filled Start Stop Current Ordering Indication Dosage Frequency Signature Comments Components Source Medication Medication Date Date Medication? Clinician (SIG) Name Name montelukast 2020-0 Yes 10mg Take 10 mg Univers 10 mg 9-10 by mouth ity of tablet 15:26: at [place] [address] bedtime. Medical Branch Budesonide 2020-0 Yes 1{puff} Inhale 1 Univers (PULMICORT 9-10 Puff at ity of [facility]) 15:26: bedtime. Demetrio as 180 41 Medical mcg/actuati Branch on aerosol powder Potassium 2020-0 Yes 1{tbl} Take 1 Univ ers Gluconate 9-10 tablet by ity o f 595 mg (99 15:26: [place] 2 [place] mg) Tab 41 (two) Medical times Branch daily. MAGNESIUM 2020-0 Yes 200mg Take 200 Uni vers OXIDE ORAL 9-10 mg by ity of 15:26: mouth at [place] [address] bedtime. Medical Branch aspirin 81 2020-0 Yes 81mg Take 81 mg U nivers mg chewable 9-10 by mouth ity of tablet 15:26: daily. [place] [address] Medical Branch DOCOSAHEXAN 2020-0 Yes Take by Uni vers OIC 9-10 mouth. ity of ACID/EPA 15:26: [place] (FISH OIL 41 Medical ORAL) Branch ASCORBATE 2020-0 Yes Take by Unive rs CALCIUM 9-10 mouth. ity of (VITAMIN C 15:26: [place] ORAL) 41 Medical Branch VITAMIN B Yes Take by Unive rs COMPLEX 9-10 mouth. ity of ORAL 15:26: [place] 41 Medical Branch glipiZIDE 5 Yes 5mg Take 5 mg U nivers mg tablet 9-10 by mouth ity of 15:26: daily. [place] [address] Medical Branch lisinopriL 2020- No [id number] 5mg Take 1 Univers 5 mg tablet 9-10 10-11 tablet by it y of 00:00: 04:59 mouth [place] 00 :00 daily for Medical 30 days. Branch spironolact 2020- No [id number] 25mg Take 1 Univers one 25 mg 9-10 10-11 tablet by ity of tablet 00:00: 04:59 mouth [place] 00 :00 daily for Medical 30 days. Branch warfarin 3 2020- No [id number] 3mg Take 1 Univers mg tablet 9-10 10-11 tablet by ity of 00:00: 04:59 mouth [place] 00 :00 every Medical Tu, Branch Thurs, Sat and Sun in the evening for 30 days. carvediloL 2020- No [id number] 3.125mg Take 1 Univers 3.125 mg 9-09 10-10 tablet by ity o f tablet 00:00: 04:59 mouth 2 [place] 00 :00 (two) Medical times Branch daily with meals for 30 days. furosemide 2020- No [id number] 40mg Take 1 Univers 40 mg 9-09 10-10 tablet by ity of tablet 00:00: 04:59 mouth [place] 00 :00 every Medical morning Branch and evening for 30 days. warfarin 4 2020- No [id number] 4mg Take 1 Univers mg tablet 9-09 10-10 tablet by ity of 00:00: 04:59 mouth [place] 00 :00 every Medical Friday, Branch and Friday in the evening for 30 days. warfarin 1 Yes 3 mg = 3 Mem oria mg oral 6-24 tab, PO, l tablet 20:46: Q5PM, 0 [place] 00 Refill(s) Furosemide Yes 40 mg = 1 Me moria 40 MG Oral 6-24 tab, PO, l Tablet 20:46: Daily, 0 [place] 00 Refill(s) 24 HR Yes 25 mg = 1 Memoria Metoprolol 6-24 tab, PO, l Tartrate 25 20:46: Daily, 0 He rmann MG Extended 00 Refill(s) Release Tablet [Toprol] lisinopril Yes 2.5 mg = 1 M emoria 2.5 mg oral 6-24 tab, PO, l tablet 20:46: Daily, 0 Vinnie 00 Refill(s) Coumadin No Notes: Yaneth 6 Nurse to l 22:00: ensure Vinnie 00 documentat ion of patient education per anticoagul ation policy. Avoid large intake of vitamin-K containing foods diet. (Same As: Coumadin) WASTE: F/P - P Waste Black; E - P Waste Black Coumadin No Notes: Yaneth 6 Nurse to l 22:00: ensure [place] 00 documentat ion of patient education per anticoagul ation policy. Avoid large intake of vitamin-K containing foods diet. (Same As: Coumadin) WASTE: F/P - P Waste Black; E - P Waste Black Coumadin No Notes: Yaneth 6 Nurse to l 22:00: ensure [place] 00 documentat ion of patient education per anticoagul ation policy. Avoid large intake of vitamin-K containing foods diet. (Same As: Coumadin) WASTE: F/P - P Waste Black; E - P Waste Black Saline No Notes: Memoria Flush 0.9% 6-20 (Same as: l 21:00: BD Vinnie 00 Posiflush) Lidocaine No Notes: Memori a Hydrochlori 6-20 Preservati l de 10 MG/ML 16:00: ve free. He rmann Injectable 00 (Same as: Solution Xylocaine MPF) Saline No Notes: Memoria Flush 0.9% 6-20 Same as: l 15:33: BD [place] Posiflush Sterile Acetaminoph No Notes: Semaj shashi en 325 MG / 6-20 (Same as: l Hydrocodone 14:49: [place] Salma nn Bitartrate 00 325/5) Do 5 MG Oral not exceed Tablet 4gm/day of [[place] acetaminop 5/325] hen. Lisinopril No Notes: Memor ia 03-04 (Same as: l 14:00: Prinivil) Vinnie 00 Lovenox No Notes: Yaneth 03-04 Nurse to l 02:00: ensure documentat ion of patient education per anticoagul ation policy. (Same as: Lovenox) meropenem No Notes: Memori a 03-03 Same as l 23:00: [place]rem MEDICATION WASTE Product Size: 500 mg Product Wasted: ___ mg Atropine No Notes: Riaoria Sulfate 03-03 (Same As: l 0.025 MG / 14:26: Lomotil) [facility] Diphenoxyla 00 MAX Adult te dose = 8 Hydrochlori tabs/day de 2.5 MG Oral Tablet [Lomotil] Coumadin No Notes: Yaneth 03-02 Nurse to l 22:00: ensure documentat ion of patient education per anticoagul ation policy. Avoid large intake of vitamin-K containing foods diet. (Same As: Coumadin) WASTE: F/P - P Waste Black; E - P Waste Black metoprolol No 25 mg, Memor ia tartrate 03-01 Route: PO, l 14:55: Drug form: TAB, ONCE, Dosing Weight 75.5, kg, Start date: 03/01/19 9:55:00 CDT, Stop date: 03/01/19 9:55:00 CDT Coumadin No Notes: Yaneth 03-01 Nurse to l 14:00: ensure documentat ion of patient education per anticoagul ation policy. Avoid large intake of vitamin-K containing foods diet. WASTE: F/P - P Waste Black; E - P Waste Black (Same As: Coumadin) Insulin No Notes: Yaneth Lispro 15 (Same as: l 18:10: Humalog) Roll in palms of hands gently; Do not shake vigorously . WASTE: F/P - Black; E - Municipal Trash Bin Stable for 28 days at room temperatur e. Expires in days from ____Date Glucagon 2019-0 No 1 mg, Memoria 6-15 Route: IM, l 18:10: Drug form: Vinnie 00 PDR/INJ, PRN, Dosing Weight 75.5, kg, PRN Blood Glucose Results, Start date: 02/27/19 13:10:00 CDT, Duration: 30 day, Stop date: 03/29/19 13:09:00 CDT Dextrose 2018- No 25 gm, 50 Semaj shashi 50% Syringe 6-15 mL, Route: l 18:10: IVP, Drug Vinnie 00 Form: INJ, Dosing Weight 75.5, kg, PRN, PRN Blood Glucose Results, Start date: 02/27/19 13:10:00 CDT, Duration: 30 day, Stop date: 03/29/19 13:09:00 CDT Furosemide 2018- No Notes: Memor ia 40 MG Oral 6-15 (Same as: l Tablet 14:00: Lasix) May Salma nn 00 cause GI upset. Give with food or milk. 24 HR No Notes: Memoria Metoprolol 6-15 (Same as: l Tartrate 25 14:00: Toprol XL) Vinnie MG Extended 00 Do Not Release Crush Tablet [Toprol] Magnesium No Notes: Memori a Sulfate 6-14 WASTE: F/P l 16:19: - Sink; E Vinnie - Municipal Trash Bin Enoxaparin No Notes: Memor ia 6-14 Nurse to l 14:00: ensure [place] 00 documentat ion of patient education per anticoagul ation policy. (Same as: Lovenox) metoprolol No Notes: Memor ia tartrate 6-13 (Same as: l 15:34: Lopressor) [place] 00 Magnesium No Notes: Memori a Sulfate 6-13 WASTE: F/P l 13:47: - Sink; E Vinnie - Municipal Trash Bin Dilaudid No Notes: Memoria 6-12 Same as: l 15:07: Dilaudid [place] 00 Vancomycin No Notes: Memor ia Pharmacy 6-12 TIME l Dosing + 06:00: CRITICAL Salma nn Sodium 00 MEDICATION Chloride (Same As: 0.9% IV 100 Vancocin) mL For adult patients only: Round to nearest 250 mg per Medical Staff approval chlorhexidi No Notes: Semaj sahshi ne - (Same As: l gluconate 02:00: Peridex) Herm avis 1.2 MG/ML 00 Mouthwash Lasix No Notes: Memoria 6-12 (Same as: l 02:00: Lasix) Vinnie MEDICATION WASTE Product Size: 40 mg Product Wasted: ___ mg Lipitor No Notes: Memoria 6- (Same as: l 02:00: Lipitor) [place] 00 Norepinephr No Notes: Not Memoria ine -12 for direct l 01:19: administra [place] 00 tion - DILUTE. Protect from light. (Same as:Levophe d). Administer by either central venous catheter or peripheral ly-inserte d central catheter (PICC) line. ocular No Notes: Memoria lubricant 02-23 (Same as: l 23:00: Lacri-Lube [place] 00 , Puralube, Duratears Naturale, Artificial Tears, and Tears Again ) propofol 10 No Notes: If M emoria mg/mL 02-23 Diprivan - l (Titrate.) 18:44: change Salma nn IV 1,000 mg 00 bottle & tubing every 12 hr Per state nursing law propofol can only be given by a nurse if patient is intubated or being intubated (unless the nurse is a HAND WASHER). Same as: Diprivan chlorhexidi No Notes: Semaj shashi ne 02-23 (Same As: l gluconate 18:27: Peridex) Herm avis 1.2 MG/ML 00 Mouthwash Succinylcho No Notes: Semaj shashi line 02-23 (Same As: l 18:26: Anectine) Vinnie Etomidate No Notes: Memori a 02-23 (Same as: l 18:26: Amidate). [place] 00 Per state nursing law etomidate can only be given by a nurse if patient is intubated or being intubated (unless the nurse is a HAND WASHER). Lasix No Notes: Memoria 6- (Same as: l 17:49: Lasix) [place] MEDICATION WASTE Product Size: 40 mg Product Wasted: ___ mg Albuterol No Notes: Memori a 0.833 MG/ML 6-11 (Same as: l / 17:49: Duoneb) Ipratropium 00 Hegins 0.167 MG/ML Inhalant Solution [DuoNeb] meropenem No Notes: Memori a 6-11 Same as l 15:00: Merrem MEDICATION WASTE Product Size: 500 mg Product Wasted: ___ mg Famotidine No Notes: Memor ia 20 MG Oral 6-11 (Same as: l Tablet 14:00: Pepcid) Aspirin No Notes: Do Memor ia 6-11 not crush l 14:00: or chew. (Same As: Ecotrin) Thyroxine No Notes: Memori a 6-11 Take 1 l 11:30: hour before or 2 hours after meal; Enteral feeds may interefere with the absorption of this medication .(Same as:Levothr oid) vancomycin No 2000 mg: Me moria + Sodium 6-11 infuse l Chloride 04:00: over 2.5 Salma nn 0.9% IV 250 00 hours For mL adult patients only: Round to nearest 250 mg per Medical Staff approval MEDICATION WASTE Product Size: 1000 mg Product Wasted: ___ mg atorvastati No Notes: Semaj shsahi n 6-11 (Same As: l 02:00: Lipitor) Famotidine No Notes: Memor ia 20 MG Oral 6-10 (Same as: l Tablet 22:00: Pepcid) tramadol No Notes: Not Mem oria hydrochlori 6-10 to exceed l de 50 MG 20:50: 400mg/day. Her jin Oral Tablet 00 (Same As: Ultram) Vancomycin No 2000 mg: Me moria 6-10 infuse l 15:00: over 2.5 Vinnie 00 hours For adult patients only: Round to nearest 250 mg per Medical Staff approval MEDICATION WASTE Product Size: 1000 mg Product Wasted: ___ mg Lasix No Notes: Memoria 6-10 (Same as: l 14:38: Lasix) MEDICATION WASTE Product Size: 40 mg Product Wasted: ___ mg phenylephri No Route: IV, Memoria ne (ANES) 6-10 Drug form: l 12:42: INJ, ONCE, [place] 00 Stop date: 02/22/19 7:42:00 CDT fentaNYL No Route: IV, Mem oria (ANES) 6-10 Drug form: l 12:38: INJ, ONCE, Stop date: 02/22/19 7:38:00 CDT 200 ML No Notes: Do Memori a Ciprofloxac 6-10 not l in 2 MG/ML 12:00: refrigerat H ermann Injection 00 e [Cipro] Sodium No Route: IV, Memor ia Chloride 6-10 Total l 0.9% IV 11:49: Volume: Vinnie (ANES) 1000 00 1,000, mL Start date: 02/22/19 6:49:00 CDT, Stop date: 02/22/19 7:49:00 CDT norepinephr No Route: IV, Memoria ine (ANES) 6-10 Drug form: l 16 11:49: INJ, Start [place] microgram 00 date: 02/22/19 6:49:00 CDT, Stop date: 02/22/19 7:49:00 CDT Thyroxine No Notes: Memori a 6-10 Take 1 l 11:30: hour [place] 00 before or 2 hours after meal; Enteral feeds may interefere with the absorption of this medication .(Same as:Levothr oid) Artificial No Notes: Memor ia Tears 6-10 (Same as: l 06:00: Lacri-Lube [place] 00 , Puralube, Duratears Naturale, Artificial Tears, and Tears Again ) Artificial No Notes: Memor ia Tears 6-10 (Same as: l 05:26: Lacri-Lube [place] 00 , Puralube, Duratears Naturale, Artificial Tears, and Tears Again ) atorvastati No Notes: Semaj shashi n 6-10 (Same As: l 02:00: Lipitor) [place] 00 Coumadin No Notes: Memoria 02-21 Nurse to l 22:00: ensure [place] 00 documentat ion of patient education per anticoagul ation policy. Avoid large intake of vitamin-K containing foods diet. (Same As: Coumadin) WASTE: F/P - P Waste Black; E - P Waste Black Tylenol No Notes: Do Memor ia 02-21 not exceed l 16:39: 4 gm/day. [place] 00 (Same as: Tylenol) NS 1000 mL No 1,000 mL, Me moria 02-21 Rate: l 16:32: 1,000 Vinnie 00 ml/hr, Infuse over: 1 hr, Route: IV, Dosing Weight 75.5 kg, Total Volume: 1,000, Start date: 02/21/19 11:32:00 CDT, Duration: 1 doses or times, Stop date: 02/21/19 12:31:00 CDT, Bolus Dose, 1.9, m2 Aspirin 81 No Notes: Memor ia MG Chewable 02-21 Take with l Tablet 15:00: food. [place]innie 00 Saline No Notes: Memoria Flush 0.9% 02-21 (Same as: l 14:00: BD [place] 00 Posiflush) Famotidine No Notes: Memor ia 02-21 (Same as: l 14:00: Pepcid) [place] 00 Can be dilute in 5-10cc NS IVP: Slow IV push over at least 2 minutes. cefepime No Notes: Memoria 02-21 (Same As: l 13:00: Maxipime) [place] 00 MEDICATION WASTE Product Size: 1000 mg Product Wasted: ___ mg Heparin 30 No Route: Memor ia unit/kg 02-21 IVP, PRN, l Bolus 07:05: 2,000 [place] (Heparin 00 unit, 2 Dosing mL, Drug Weight) form: INJ, PRN, Heparin Protocol, Start date: 02/21/19 2:05:00 CDT Stop date: 03/23/19 2:04:00 CDT, 30 day Heparin 60 No Route: Memor ia unit/kg 6-09 IVP, PRN, l Bolus 07:05: 4,000 [place]innie (Heparin 00 unit, 4 Dosing mL, Drug Weight) form: INJ, PRN, Heparin Protocol, Start date: 02/21/19 2:05:00 CDT Stop date: 03/23/19 2:04:00 CDT, 30 day heparin 2018-0 No 500 mL, Memoria additive 02-21 Rate: 16.1 l 25,000 unit 07:05: ml/hr, Herm avis [12 00 Infuse unit/kg/hr] over: 31.1 + Premix hr, Route: Diluent IV, Dosing Dextrose 5% Weight 500 mL 67.1 kg, Total Volume: 500 mL, Start date: 02/21/19 2:05:00 CDT, Duration: 30 day, Stop date: 03/23/19 2:04:00 CDT, 1.79, m2 Tylenol 2018- No Notes: Max Semaj shashi 6- acetaminop l 06:51: hen = 4000 Vinnie 00 mg/day (4 gm/day). (Same as: Tylenol) Coumadin 2018-0 No 5 mg, PO, Semaj shashi 6-09 QPM, every l 06:27: M,W,F, 0 [place] 00 Refill(s) isosorbide 2018-0 No 20 mg = 1 Me moria dinitrate 6-09 tab, PO, l 20 mg oral 06:27: BID, 0 Salma nn tablet 00 Refill(s) Warfarin 2018-0 No 2.5 mg = 1 Mem oria Sodium 2.5 6-09 tab, PO, l MG Oral 06:27: QPM, every Herm avis Tablet 00 T, , , [Coumadin] 0 Refill(s) Tylenol 2019-0 No 650 mg, Memoria 6-09 PO, Q6H, l 06:27: PRN fever, [place] 00 0 Refill(s) Glipizide 5 2018-0 No 5 mg = 1 Me moria MG Oral 6-09 tab, PO, l Tablet 06:27: Daily, 0 [place] 00 Refill(s) Acetaminoph 2019-0 Yes 1 tab, PO, Memoria en 325 MG / 609 Q6H, PRN l Hydrocodone 06:27: for pain, H ermann Bitartrate 00 0 5 MG Oral Refill(s) Tablet [[place] 5/325] 60 ACTUAT 2019- No 90 Memoria Budesonide 6-09 microgram l 0.08 06:27: =, [place] MG/ACTUAT 00 INHALATION Dry Powder , Bedtime, Inhaler please [Pulmicort] clarify dose, 0 Refill(s) gabapentin No 200 mg, Semaj shashi 6- PO, Q8H, 0 l 06:27: Refill(s) [place] 00 bisacodyl 5 No 10 mg = 2 M emoria mg oral 6- tab, PO, l enteric 06:27: Daily, PRN Herm avis coated 00 Constipati tablet on, # 20 tab, 0 Refill(s) Furosemide No 20 mg = 1 Me moria 20 MG Oral 6-09 tab, PO, l Tablet 06:27: Daily, # Vinnie 00 30 tab, 0 Refill(s) atorvastati Yes 10 mg = 1 M emoria n 10 mg 6- tab, PO, l oral tablet 06:27: Bedtime, # Vinnie 00 90 tab, 1 Refill(s) Aspirin 81 Yes 81 mg = 1 Me moria MG Enteric 6-09 tab, PO, l Coated 06:27: Daily, # Vinnie Tablet 00 90 tab, 3 Refill(s) ascorbic No 500 mg, Memori a acid 6- PO, Daily, l 06:27: 0 Vinnie 00 Refill(s) Fluticasone No = 1 puff, M emoria propionate 6- INHALATION l 0.1 06:27: , Daily, # [place] MG/ACTUAT 00 120 ea, 0 Dry Powder Refill(s) Inhaler Potassium No See Memoria gluconate 02-21 Instructio l 06:27: ns, please [place] 00 clarify order p.o. BID, 0 Refill(s) 0.4 ML No 40 mg, Memoria Enoxaparin 6 SUB-Q, l sodium 100 06:27: Daily, # 7 H ermann MG/ML 00 ea, 0 Prefilled Refill(s) Syringe [Lovenox] [place]-3 No 1,000 mg = Semaj shashi 1000 mg 02-21 1 cap, PO, l oral 06:27: Daily, 0 [place] capsule 00 Refill(s) amLODIPine No 5 mg = 1 Mem oria 5 mg oral 02-21 tab, PO, l tablet 06:27: Daily, # Vinnie 00 30 tab, 0 Refill(s) Docusate No 2 tab, PO, Mem oria Sodium 50 6 BID, # 14 l MG / 06:27: tab, 0 [place] sennosides, 00 Refill(s) FDC 8.6 MG Oral Tablet Multi No 0 Memoria Vitamin+ 02-21 Refill(s) l 06:27: [place] 00 montelukast No 10 mg = 1 M emoria 10 mg oral 02-21 tab, PO, l tablet 06:27: Bedtime, # Salma nn 00 30 tab, 0 Refill(s) Rocephin 1 No IV, Daily, M emoria g injection 02-21 0 l 06:27: Refill(s) [place] 00 melatonin 3 No 3 mg = 1 Me moria mg oral 02-21 tab, PO, l tablet 06:27: Bedtime, [place] 00 PRN for insomnia, # 60 tab, 0 Refill(s) carvedilol No 6.25 mg = Me moria 6.25 mg 02-21 1 tab, PO, l oral tablet 06:27: BID, # 180 [place] 00 tab, 0 Refill(s) Albuterol Yes 3 mL, NEB, Me moria 0.833 MG/ML 02-21 Q4H, PRN l / 06:27: shortness [place] Ipratropium 00 of breath, Hegins 0 0.167 MG/ML Refill(s) Inhalant Solution [DuoNeb] Magnesium No 400 mg = 1 Me moria Oxide - tab, PO, l 06:27: Bedtime, # [place] 00 20 tab, 0 Refill(s) Lidocaine No 1 patch, Semaj shashi 0.05 MG/MG 02-21 TOP, l Transdermal 06:27: Daily, Herm avis Patch 00 left knee remove patches after 12 hours, 0 Refill(s) Thyroxine Yes 112 Memoria 02-21 microgram, l 06:27: PO, Daily, [place] 00 0 Refill(s) ocular No Notes: Memoria lubricant 02-21 (Same as: l 05:00: Lacri-Lube Vinnie 00 , Puralube, Duratears Naturale, Artificial Tears, and Tears Again ) propofol 10 No Notes: If M emoria mg/mL 02-21 Diprivan - l (Titrate.) 02:55: change Salma nn IV 1,000 mg 00 bottle & tubing every 12 hr Per state nursing law propofol can only be given by a nurse if patient is intubated or being intubated (unless the nurse is a HAND WASHER). Same as: Diprivan potassium No Notes: Memori a phosphate 02-21 (Same as: l 02:51: K Vinnie 00 Phosphate. ) Do not infuse phosphorou s concurrent ly in the same line as TPN or IVF that contains calcium. For double lumen central lines, phosphorou s may be infused in a separate lumen from TPN. 1 mMol phoshate has 1.47 mEq potassium Infuse over 4 hours sodium No Notes: Memoria phosphate 02-21 Infuse l 02:51: over 4 [place] 00 hour. Do not infuse phosphorou s concurrent ly in the same line as TPN or IVF that contains calcium. For double lumen central lines, phosphorou s may be infused in a separate lumen from TPN. potassium No Notes: Memori a phosphate-s 02-21 (Same as: l odium 02:51: Phos-NaK) Vinnie phosphate 00 Each 1.5 250 mg-280 gm pkt has mg-160 mg 250mg oral powder phosphorou for s. Mix reconstitut w/2.5oz ion water and stir. Calcium No Notes: Memoria Gluconate 02-21 WASTE: F/P l 02:51: - Sink; E 00 - Municipal Trash Bin Magnesium No Notes: Memori a Oxide 02-21 (Same as: l 02:51: Mag-Ox 00 400) Magnesium oxide 621pc=827n g elemental magnesium Dose=____m g magnesium oxide (___mg elemental magnesium) Magnesium No Notes: Memori a Sulfate 02-21 WASTE: F/P l 02:51: - Sink; E Vinnie 00 - Municipal Trash Bin Calcium No Notes: Memoria Carbonate 02-21 (Same As: l 500 MG 02:51: Tums) Vinnie Chewable 00 Calcium Tablet Carbonate 500 mg = 200 mg elemental calcium Dose = mg calcium carbonate ( mg elemental calcium) propofol 10 No 1,000 mg, M emoria mg/mL 02-21 100 mL, l (Titrate.) 02:51: Rate: Leland n IV 1,000 mg 00 Titrate, Start Dose: 5 microgram/ kg/min, Titration: 5 microgram/ kg/min every 15 minutes, Goal(s): rass -1, Max Dose: 50 mcg/kg/min , Route: IV, Dosing Weight 81.818 kg, Total Volume: 100, Start date: 02/20/19 21:51:00 CDT, Durat... Potassium No Notes: Memori a Chloride 02-21 Infuse at l 02:51: a rate of [place] 00 10 mEq/hr. (Same as: KCL) Saline No Notes: Memoria Flush 0.9% 02-21 (Same as: l 02:51: BD [place] Posiflush) Nystatin No Notes: Memoria 100 UNT/MG 02-21 (Same l Topical 02:51: as:Mycosta Herm avis Powder 00 tin, Nilstat) For external use only. chlorhexidi No Notes: Semaj shashi ne 02-21 (Same As: l gluconate 02:00: Peridex) Herm avis 1.2 MG/ML 00 Mouthwash Vancomycin No 2001 mg: Me moria 02-21 infuse l 02:00: over 2.5 Vinnie 00 hours For adult patients only: Round to nearest 250 mg per Medical Staff approval MEDICATION WASTE Product Size: 1000 mg Product Wasted: ___ mg Norepinephr No Notes: Not Memoria ine 02-21 for direct l 01:44: administra Vinnie 00 tion - DILUTE. Protect from light. (Same as:Levophe d). Administer by either central venous catheter or peripheral ly-inserte d central catheter (PICC) line. Lasix No Notes: Memoria 02-21 (Same as: l 01:15: Lasix) Vinnie 00 MEDICATION WASTE Product Size: 40 mg Product Wasted: ___ mg propofol 10 No Notes: If M emoria mg/mL 02-21 Diprivan - l (Titrate.) 00:33: change Salma nn IV 500 mg 00 bottle & tubing every 12 hr Per state nursing law propofol can only be given by a nurse if patient is intubated or being intubated (unless the nurse is a HAND WASHER). Same as: Diprivan Etomidate No Notes: Memori a 02-21 (Same as: l 00:32: Amidate). [place] 00 Per state nursing law etomidate can only be given by a nurse if patient is intubated or being intubated (unless the nurse is a HAND WASHER). chlorhexidi No Notes: Semaj shashi ne 02-21 (Same As: l gluconate 00:31: Peridex) Herm avis 1.2 MG/ML 00 Mouthwash cefepime No Notes: Memoria 02-21 (Same as: l 00:31: Maxipime) Vinnie 00 MEDICATION WASTE Product Size: 2000 mg Product Wasted: ___ mg Sodium No 2,454.54 Memoria Chloride - mL, l 0.9% 00:31: 2454.54 Vinnie (Bolus) IV 00 ml/hr, Infuse Over: 1 hr, Route: IV, 2,454.54, Drug form: INJ, ONCE, Priority: STAT, Dosing Weight 81.818 kg, Start date: 02/20/19 19:31:00 CDT, Stop date: 02/20/19 19:31:00 CDT carvedilol Yes 6.25mg Take 6.25 Univers 6.25 mg 6-01 mg by ity of tablet 02:46: mouth 2 [place] 16 (two) Medical times Branch daily with meals. isosorbide Yes 20mg Take 20 mg U nivers dinitrate 6-01 by mouth 2 ity of 20 mg 02:46: (two) [place] tablet 16 times Medical daily. Branch furosemide 2019-0 Yes 20mg Take 20 mg U nivers 20 mg 6-01 by mouth ity of tablet 02:46: daily. [place] [address] Medical Branch amLODIPine 2018-0 Yes 5mg Take 5 mg Un jie 5 mg tablet 6-01 by mouth ity of 02:46: daily. [place] [address] Medical Branch montelukast 2018- Yes 10mg Take 10 mg Univers 10 mg 6-01 by mouth ity of tablet 02:46: at [place] [address] bedtime. Medical Branch Budesonide 2019-0 Yes 1{puff} Inhale 1 Univers (PULMICORT 6- Puff at ity of FLEXHALER) 02:46: bedtime. Demetrio as 180 Medical mcg/actuati Branch on aerosol powder Potassium 0 Yes 1{tbl} Take 1 Univ ers Gluconate 6- tablet by ity o f 595 mg (99 02:46: [place] mg[place] [facility] (two) Medical times Branch daily. MAGNESIUM 2018- Yes 200mg Take 200 Uni vers OXIDE ORAL 6-01 mg by ity of 02:46: mouth at [place] [address] bedtime. Medical Branch aspirin 81 2018-0 Yes 81mg Take 81 mg U nivers mg chewable 6- by mouth ity of tablet 02:46: daily. [place] [address] Medical Branch DOCOSAHEXAN 0 Yes Take by Uni vers OIC 6-01 mouth. ity of ACID/EPA 02:46: [place] (FISH OIL 16 Medical ORAL) Branch ASCORBATE 0 Yes Take by Unive rs CALCIUM 6-01 mouth. ity of (VITAMIN C 02:46: [place] ORAL) Medical Branch VITAMIN B 2018-0 Yes Take by Unive rs COMPLEX 6-01 mouth. ity of ORAL 02:46: [place] [address] Medical Branch glipiZIDE 5 2019-0 Yes 5mg Take 5 mg U nivers mg tablet 6-01 by mouth ity of 02:46: daily. [place] [address] Medical Branch carvedilol 2018-0 Yes 6.25mg Take 6.25 Univers 6.25 mg 6-01 mg by ity of tablet 02:46: mouth 2 [place] [address] (two) Medical times Branch daily with meals. isosorbide 2018-0 Yes 20mg Take 20 mg U nivers dinitrate 6-01 by mouth 2 ity of 20 mg 02:46: (two) [place] tablet 16 times Medical daily. Branch furosemide Yes 20mg Take 20 mg U nivers 20 mg 6-01 by mouth ity of tablet 02:46: daily. [place] [address] Medical Branch amLODIPine Yes 5mg Take 5 mg Un jie 5 mg tablet 6-01 by mouth ity of 02:46: daily. [place] [address] Medical Branch montelukast Yes 10mg Take 10 mg Univers 10 mg 6-01 by mouth ity of tablet 02:46: at [place] [address] bedtime. Medical Branch Budesonide 2019 Yes 1{puff} Inhale 1 Univers (PULMICORT 6- Puff at ity of FLEXHALER) 02:46: bedtime. Demetrio as 180 Medical mcg/actuati Branch on aerosol powder Potassium Yes 1{tbl} Take 1 Univ ers Gluconate 6- tablet by ity o f 595 mg (99 02:46: mouth 2 [place] mg[place] [facility] (two) Medical times Branch daily. MAGNESIUM Yes 200mg Take 200 Uni vers OXIDE ORAL 6-01 mg by ity of 02:46: mouth at [place] [address] bedtime. Medical Branch aspirin 81 Yes 81mg Take 81 mg U nivers mg chewable 6- by mouth ity of tablet 02:46: daily. [place] [address] Medical Branch DOCOSAHEXAN Yes Take by Uni vers OIC 6-01 mouth. ity of ACID/EPA 02:46: [place] (FISH OIL 16 Medical ORAL) Branch ASCORBATE 0 Yes Take by Unive rs CALCIUM 6-01 mouth. ity of (VITAMIN C 02:46: [place] ORAL) Medical Branch VITAMIN B 0 Yes Take by Unive rs COMPLEX 6-01 mouth. ity of ORAL 02:46: [place] [address] Medical Branch glipiZIDE 5 2018-0 Yes 5mg Take 5 mg U nivers mg tablet 6-01 by mouth ity of 02:46: daily. [place] [address] Medical Branch carvedilol 0 Yes 6.25mg Take 6.25 Univers 6.25 mg 6-01 mg by ity of tablet 02:46: mouth 2 [place] [address] (two) Medical times Branch daily with meals. isosorbide 0 Yes 20mg Take 20 mg U nivers dinitrate 6-01 by mouth 2 ity of 20 mg 02:46: (two) [place] tablet 16 times Medical daily. Branch furosemide Yes 20mg Take 20 mg U nivers 20 mg 6-01 by mouth ity of tablet 02:46: daily. [place] [address] Medical Branch amLODIPine Yes 5mg Take 5 mg Un jie 5 mg tablet 6-01 by mouth ity of 02:46: daily. [place] [address] Medical Branch montelukast Yes 10mg Take 10 mg Univers 10 mg 6-01 by mouth ity of tablet 02:46: at [place] [address] bedtime. Medical Branch Budesonide Yes 1{puff} Inhale 1 Univers (PULMICORT 6- Puff at ity of FLEXHALER) 02:46: bedtime. Demetrio as 180 Medical mcg/actuati Branch on aerosol powder Potassium Yes 1{tbl} Take 1 Univ ers Gluconate 6-01 tablet by ity o f 595 mg (99 02:46: mouth 2 [place] mg[place] 16 (two) Medical times Branch daily. MAGNESIUM Yes 200mg Take 200 Uni vers OXIDE ORAL 6-01 mg by ity of 02:46: mouth at [place] [address] bedtime. Medical Branch aspirin 81 Yes 81mg Take 81 mg U nivers mg chewable 6- by mouth ity of tablet 02:46: daily. [place] [address] Medical Branch DOCOSAHEXAN Yes Take by Uni vers OIC 6-01 mouth. ity of ACID/EPA 02:46: [place] (FISH OIL 16 Medical ORAL) Branch ASCORBATE Yes Take by Unive rs CALCIUM 6-01 mouth. ity of (VITAMIN C 02:46: [place] ORAL) Medical Branch VITAMIN B Yes Take by Unive rs COMPLEX 6-01 mouth. ity of ORAL 02:46: [place] [address] Medical Branch glipiZIDE 5 Yes 5mg Take 5 mg U nivers mg tablet 6-01 by mouth ity of 02:46: daily. [place] [address] Medical Branch bisacodyl 5 Yes [id number] 10mg Take 2 Univers mg EC 6-01 tablets by ity of tablet 00:00: mouth [place] 00 daily. Medical Branch bisacodyl 5 Yes [id number] 10mg Take 2 Univers mg EC 6-01 tablets by ity of tablet 00:00: mouth [place] 00 daily. Medical Branch bisacodyl 5 Yes [id number] 10mg Take 2 Univers mg EC 6-01 tablets by ity of tablet 00:00: mouth [place] 00 daily. [facility] Branch bisacodyl 5 Yes [id number] 10mg Take 2 Univers mg EC 6-01 tablets by ity of tablet 00:00: mouth [place] 00 daily. [facility] Branch sennosides- Yes [id number] 1{tbl} Take 1 Univers docusate 5-31 tablet by ity of sodium 00:00: mouth 2 [place] 8.6-50 mg 00 (two) Medical per tablet times Branch daily. HYDROcodone Yes [id number] 1{tbl} Take 1 Univers -acetaminop 5-31 tablet by ity of hen 5-325 00:00: mouth [place] mg tablet 00 every 6 Medical (six) Branch hours as needed for Pain (scale 7-10). insulin Yes [id number] 10U inject 10 Univers aspart 5-31 Units ity of injection 00:00: under the Demetrio as 00 skin TID Medical MEALS+HS. Branch warfarin Yes [id number] Take 1 Univers mg tablet 5-31 tablet (5 ity o f 00:00: mg) on Friday, Medical Friday, Branch Friday, take 0.5 tablet (2.5mg) on Friday, and Friday Levothyroxi Yes [id number] 112ug Take 1 Univers ne 112 mcg 5-31 capsule by ity of capsule 00:00: mouth 00 daily. [facility] Yes [id number] 1{tbl} Take 1 Univers docusate 5-31 tablet by ity of sodium 00:00: mouth 2 [place] 8.6-50 mg 00 (two) Medical per tablet times Branch daily. HYDROcodone Yes [id number] 1{tbl} Take 1 Univers -acetaminop 5-31 tablet by ity of hen 5-325 00:00: mouth [place] mg tablet 00 every 6 Medical (six) Branch hours as needed for Pain (scale 7-10). insulin Yes [id number] 10U inject 10 Univers aspart 5-31 Units ity of injection 00:00: under the Demetrio as 00 skin TID Medical MEALS+HS. Branch warfarin 5 Yes [id number] Take 1 Univers mg tablet 5-31 tablet (5 ity o f 00:00: mg) on Friday, Medical Friday, Branch Friday, take 0.5 tablet (2.5mg) on Friday, and Friday Levothyroxi Yes [id number] 112ug Take 1 Univers ne 112 mcg 5-31 capsule by ity of capsule 00:00: mouth 00 daily. Medical Branch sennosides- Yes [id number] 1{tbl} Take 1 Univers docusate 5-31 tablet by ity of sodium 00:00: mouth 2 [place] 8.6-50 mg 00 (two) Medical per tablet times Branch daily. HYDROcodone Yes [id number] 1{tbl} Take 1 Univers -acetaminop 5-31 tablet by ity of hen 5-325 00:00: mouth [place] mg tablet 00 every 6 Medical (six) Branch hours as needed for Pain (scale 7-10). insulin Yes [id number] 10U inject 10 Univers aspart 5-31 Units ity of injection 00:00: under the Demetrio as 00 skin TID Medical MEALS+HS. Branch warfarin 5 Yes [id number] Take 1 Univers mg tablet 5-31 tablet (5 ity o f 00:00: mg) on Friday, Medical Friday, Branch Friday, take 0.5 tablet (2.5mg) on Friday, and Friday Levothyroxi Yes [id number] 112ug Take 1 Univers ne 112 mcg 5-31 capsule by ity of capsule 00:00: mouth daily. Medical Branch [facility]- Yes [id number] 1{tbl} Take 1 Univers docusate 5-31 tablet by ity of sodium 00:00: mouth 2 [place] 8.6-50 mg 00 (two) Medical per tablet times Branch daily. HYDROcodone Yes [id number] 1{tbl} Take 1 Univers -acetaminop 5-31 tablet by ity of hen 5-325 00:00: mouth [place] mg tablet 00 every 6 Medical (six) Branch hours as needed for Pain (scale 7-10). insulin Yes [id number] 10U inject 10 Univers aspart 5-31 Units ity of injection 00:00: under the Demetrio as 00 skin TID Medical MEALS+HS. Branch Levothyroxi Yes [id number] 112ug Take 1 Univers ne 112 mcg 5-31 capsule by ity of capsule 00:00: mouth [place] 00 daily. Medical Branch carvedilol Yes Howard 6.25 mg = M emoria 6.25 mg 2-03 Fer 1 tab, PO, l oral tablet 15:59: Sebastian BID, # 1 [place] 00 tab, 0 Refill(s), other acetaminoph Yes Howard 650 mg = 2 Memoria en 325 mg 2-03 Fer tab, PO, l oral tablet 15:59: [place] Q4H, for [place] 00 pain, # 24 tab, 0 Refill(s), other tramadol 50 Yes Howard 50 mg = 1 Memoria mg oral 2-03 Fer tab, PO, l tablet 15:59: [place] Q4H, Pain, Her jin 00 # 1 tab, 0 Refill(s), other meclizine Yes Howard 25 mg = 1 Me moria 25 mg oral 2-03 Fer tab, PO, l tablet 15:59: Sebastian QID, [place] 00 Dizziness, # 1 tab, 0 Refill(s), other loperamide Yes Howard 1 mg = 5 Me moria 1 mg/5 mL 2-03 Fer mL, PO, l oral liquid 15:59: [place] Q6H, as H ermann 00 needed for loose stool, # 5 mL, 0 Refill(s), other ferrous Yes Howard 325 mg = 1 Mem oria sulfate 325 2-03 Fer tab, PO, l mg oral 15:59: [place] BID, # 1 Herm avis enteric 00 tab, 0 coated Refill(s), tablet other docusate Yes Howard 100 mg = 1 Me moria sodium 100 2-03 Fer cap, PO, l mg oral 15:59: [place] BID, as Salma nn capsule 00 needed for constipati on, # 1 cap, 0 Refill(s), other glipiZIDE 5 Yes Howard 5 mg = 1 M emoria mg oral 2-03 Fer tab, PO, l tablet 15:59: Sebastian Before Vinnie 00 Breakfast, # 1 tab, 0 Refill(s), other ferrous No Howard 325 mg, 1 Semaj shashi sulfate 2-03 Fer tab, l 15:00: [place] Route: PO, Salma nn 00 Drug form: ECTAB, BID, Dosing Weight 75.909, kg, Start date: 10/18/13 9:00:00, Duration: 30 day, Stop date: 11/16/13 17:00:00Gi ve with food. "Do Not Crush" warfarin No Howard 7.5 mg, 1 Mem oria 2-02 Fer tab, l 23:00: Sebastian Route: PO, Salma nn 00 Drug form: TAB, Q5PM, Dosing Weight 75.909, kg, Start date: 10/17/13 17:00:00, Duration: 1 doses or times, Stop date: 10/17/13 17:00:00Nu rse to ensure documentat ion of patient education per [facility] policy. Avoid large intake of vitamin-K containing foods diet. (Same As: Coumadin) meclizine No Howard 25 mg, 1 Mem oria 2-02 Fer tab, l 16:25: Sebastian Route: PO, Salma nn 00 Drug form: TAB, QID, Dosing Weight 75.909, kg, PRN Dizziness, Start date: 10/17/13 10:25:00, Duration: 30 day, Stop date: 11/16/13 10:24:00(S sharron as: Antivert) meclizine No Howard 25 mg, 1 Mem oria 2-02 Fer tab, l 15:45: Sebastian Route: PO, Salma nn 00 Drug form: TAB, TID, Dosing Weight 75.909, kg, PRN Dizziness, Start date: 10/17/13 9:45:00, Duration: 30 day, Stop date: 11/16/13 9:44:00(Sa me as: Antivert) warfarin No Howard 3 mg, 3 Memor ia 2-01 Fer tab, l 23:00: Sebastian Route: PO, Salma nn 00 Drug form: TAB, Q5PM, Dosing Weight 75.909, kg, Start date: 10/16/13 17:00:00, Duration: 1 doses or times, Stop date: 10/16/13 17:00:00Nu rse to ensure documentat ion of patient education per anticoagul ation policy. Avoid large intake of vitamin-K containing foods diet. (Same As: Coumadin) warfarin No Howard 6 mg, 3 Memor ia 1-31 Fer tab, l 23:00: Sebastian Route: PO, Salma nn 00 Drug form: TAB, Q5PM, Dosing Weight 75.909, kg, Start date: 10/15/13 17:00:00, Duration: 1 doses or times, Stop date: 10/15/13 17:00:00Nu rse to ensure documentat ion of patient education per anticoagul ation policy. Avoid large intake of vitamin-K containing foods diet. (Same As: Coumadin) loperamide No Howard 1 mg, 5 Mem oria 1-31 Fer mL, Route: l 18:00: Sebastian PO, Drug [place] 00 form: LIQ, ONCE, Dosing Weight 75.909, kg, Start date: 10/15/13 12:00:00, Stop date: 10/15/13 12:00:00(S sharron as: Imodium) loperamide No Howard 1 mg, 5 Mem oria 1-31 Fer mL, Route: l 17:59: Sebastian PO, Drug Vinnie 00 form: LIQ, Q6H, Dosing Weight 75.909, kg, PRN as needed for loose stool, Start date: 10/15/13 11:59:00, Duration: 30 day, Stop date: 11/14/13 11:58:00 loperamide No Howard 2 mg, 1 Mem oria 1-31 Fer cap, l 16:42: Sebastian Route: PO, Salma nn 00 Drug form: CAP, Q6H, Dosing Weight 75.909, kg, PRN as needed for loose stool, Start date: 10/15/13 10:42:00, Duration: 30 day, Stop date: 11/14/13 10:41:00(S sharron as: Imodium) MAX adult dose is 8 caps/day warfarin No Howard 7.5 mg, 1 Mem oria 10-14 Fer tab, l 23:00: Sebastian Route: PO, Salma nn 00 Drug form: TAB, Q5PM, Dosing Weight 75.909, kg, Start date: 10/14/13 17:00:00, Duration: 1 doses or times, Stop date: 10/14/13 17:00:00Nu rse to ensure documentat ion of patient education per anticoagul ation policy. Avoid large intake of vitamin-K containing foods diet. (Same As: Coumadin) warfarin No Howard 7.5 mg, 1 Mem oria 10-13 Fer tab, l 23:00: Sebastian Route: PO, Salma nn 00 Drug form: TAB, Q5PM, Dosing Weight 75.909, kg, Start date: 10/13/13 17:00:00, Duration: 1 doses or times, Stop date: 10/13/13 17:00:00Nu rse to ensure documentat ion of patient education per anticoagul ation policy. Avoid large intake of vitamin-K containing foods diet. (Same As: Coumadin) Pulmicort Yes 180 Memoria Flexhaler 10-13 microgram l 180 mcg/inh 18:10: = 1 Leland n inhalation 00 inhalation powder , INHALATION , BID, 0 Refill(s) acetaminoph No 500 mg, Mem oria en 10-13 PO, l 18:08: Bedtime, 0 [place] 00 Refill(s) ascorbic Yes 500 mg, Memori a acid 10-13 PO, Daily, l 18:08: 0 [place] 00 Refill(s) cranberry Yes 1 tab, PO, Me moria oral tablet 10-13 Daily, 0 l 18:06: Refill(s) garlic Yes 1 tab, PO, Memor ia 10-13 Daily, 0 l 18:06: Refill(s) multivitami Yes 1 tab, PO, Memoria n 10-13 Daily, 0 l 18:06: Refill(s) Vinnie 00 warfarin No Howard 7.5 mg, 1 Mem oria 10-12 Fer tab, l 23:00: Sebastian Route: PO, Salma nn 00 Drug form: TAB, Q5PM, Dosing Weight 75.909, kg, Start date: 10/12/13 17:00:00, Duration: 1 doses or times, Stop date: 10/12/13 17:00:00Nu rse to ensure documentat ion of patient education per anticoagul ation policy. Avoid large intake of vitamin-K containing foods diet. (Same As: Coumadin) docusate No Howard 100 mg, 1 Mem oria sodium 100 10-12 Fer cap, l mg oral 17:32: Sebastian Route: PO, He rmann capsule Drug form: CAP, BID, Dosing Weight 78.182, kg, PRN as needed for constipati on, Start date: 10/12/13 11:32:00, Duration: 30 day, Stop date: 11/11/13 11:31:00(S sharron as: Colace) (Do Not Crush) glipiZIDE No Howard 5 mg, 1 Semaj shashi 10-12 Fer tab, l 13:30: Sebastian Route: PO, Salma nn 00 Drug form: TAB, Before Breakfast, Dosing Weight 75.909, kg, Start date: 10/12/13 7:30:00, Duration: 30 day, Stop date: 11/10/13 7:30:00(Sa me as: Glucotrol) 30 min before meals. warfarin No Howard 7.5 mg, 1 Mem oria 10-11 Fer tab, l 23:00: Sebastian Route: PO, Salma nn 00 Drug form: TAB, Q5PM, Dosing Weight 75.909, kg, Start date: 10/11/13 17:00:00, Duration: 1 doses or times, Stop date: 10/11/13 17:00:00Nu rse to ensure documentat ion of patient education per anticoagul ation policy. Avoid large intake of vitamin-K containing foods diet. (Same As: Coumadin) warfarin No Howard 7.5 mg, 1 Mem oria 10-10 Fer tab, l 23:00: Sebastian Route: PO, Salma nn 00 Drug form: TAB, Q5PM, Dosing Weight 75.909, kg, Start date: 10/10/13 17:00:00, Duration: 1 doses or times, Stop date: 10/10/13 17:00:00Nu rse to ensure documentat ion of patient education per anticoagul ation policy. Avoid large intake of vitamin-K containing foods diet. (Same As: Coumadin) warfarin No Howard 7.5 mg, 1 Mem oria 1-25 Fer tab, l 23:00: Sebastian Route: PO, Salma nn 00 Drug form: TAB, Q5PM, Dosing Weight 75.909, kg, Start date: 10/09/13 17:00:00, Duration: 1 doses or times, Stop date: 10/09/13 17:00:00Nu rse to ensure documentat ion of patient education per anticoagul ation policy. Avoid large intake of vitamin-K containing foods diet. (Same As: Coumadin) magnesium No Howard 2 gm, 50 Mem oria sulfate 1-25 Fer mL, Route: l 22:02: Sebastian IVPB, Drug Salma nn 00 form: INJ, ONCE, Dosing Weight 75.909, kg, Total dose = 2 gm, Start date: 10/09/13 16:02:00, Duration: 1 doses or times, Stop date: 10/09/13 16:02:00 magnesium No Howard 2 gm, 50 Mem oria sulfate 1-25 Fer mL, Route: l 21:45: Sebastian IVPB, Drug Salma nn 00 form: INJ, ONCE, Dosing Weight 75.909, kg, Total dose = 2 gm, Start date: 10/09/13 15:45:00, Duration: 1 doses or times, Stop date: 10/09/13 15:45:00 tramadol 50 No Galile[place] 50 mg, 1 Memoria mg oral 1-25 Avis Stef tab, l tablet 10:24: Route: PO, Salma nn 00 Drug form: TAB, Q4H, PRN Pain, Start date: 10/09/13 4:24:00, Duration: 30 day, Stop date: 11/08/13 4:23:00(Sa me As: Ultram) Ancef No Roque 2 gm, 50 Memor ia 1-24 Maykel Braly mL, Route: l 21:00: II IVPB, Drug [place] 00 form: INJ, ABXQ8H, Dosing Weight 75.909, kg, Start date: 10/08/13 15:00:00, Duration: 3 doses or times, Stop date: 10/09/13 7:00:00 ceFAZolin No Jeffery 1 gm, Semaj shashi 1-24 Jose Carlos Route: l 17:05: Achor IVP, ONCE, Leland n 00 Dosing Weight 75.909, kg, Start date: 10/08/13 11:05:00, Duration: 1 doses or times, Stop date: 10/08/13 11:05:00 metoprolol No Tori 1 mg, 1 Mem oria 1-24 Chigozie mL, Route: l 16:54: Sarwat IVP, Drug Salma nn 00 form: INJ, Q5Min, Dosing Weight 75.909, kg, PRN Other -See Comment, Start date: 10/08/13 10:54:00, Duration: 5 doses or times, Stop date: 10/09/13 0:00:00(Sa me as: Lopressor) Push over 2 minutes ondansetron No Tori 4 mg, 2 Me moria 1-24 [place] mL, Route: l 16:54: Sarwat IVP, Drug Salma nn 00 form: INJ, ONCE, Dosing Weight 75.909, kg, PRN Nausea & Vomiting, Start date: 10/08/13 10:54:00(S sharron as: Zofran) flumazenil No Tori 0.2 mg, 2 M emoria 1-24 Chigozie mL, Route: l 16:54: Sarwat IVP, Drug Salma nn 00 form: INJ, PRN, Dosing Weight 75.909, kg, PRN Benzodiaze pine Reversal, Initial dose, Start date: 10/08/13 10:54:00, Duration: 5 doses or times, Stop date: 10/09/13 0:00:00(Sa me as: Romazicon) naloxone No Tori 0.04 mg, Semaj shashi 1-24 Chigozie 0.1 mL, l 16:54: Sarwat Route: Vinnie 00 IVP, Drug form: INJ, Q2MIN, Dosing Weight 75.909, kg, PRN Narcotic Reversal, Start date: 10/08/13 10:54:00, Duration: 8 doses or times, Stop date: 10/09/13 0:00:00(Sa me as: Narcan) hydromorpho 2013- No Tori 0.5 mg, Me moria ne 1-24 Chigozie 0.25 mL, l 16:54: Sarwat Route: [place] 00 IVP, Drug form: INJ, Q5Min, Dosing Weight 75.909, kg, PRN Pain Score 7-10, Start date: 10/08/13 10:54:00, Duration: 4 doses or times, Stop date: 10/09/13 0:00:00(Sa me as: Dilaudid) hydrALAZINE No Tori 10 mg, 0.5 Memoria 1-24 Chigozie mL, Route: l 16:54: Sarwat IVP, Drug Salma nn 00 form: INJ, Q20Min, Dosing Weight 75.909, kg, PRN Elevated BP, Start date: 10/08/13 10:54:00, Duration: 2 doses or times, Stop date: 10/09/13 0:00:00(Sa me as: Apresoline ) Push over 5 minutes Lovenox 2013- No Howard 30 mg, 0.3 Mem oria 1-24 Fer mL, Route: l 16:00: Sebastian SUB-Q, [place] Drug form: INJ, Q12H, Dosing Weight 75.909, kg, Start date: 10/08/13 10:00:00, Duration: 30 day, Stop date: 11/07/13 4:00:00(Sa me as: Lovenox) Sodium No Ronit 250 mL, Memor ia Chloride 1-24 Diana Rate: On l 0.9% 03:42: Joo call for Salma nn (titrate) 00 use with 250 mL blood product administra tion, Dosing Weight 75.909, kg, Route: IV, Total Volume: 250, Start Date: 10/07/13 21:42:00, Duration: 30 day, Stop date: 11/06/13 21:41:00, Replace Every: 24 hr budesonide No Galilea budesonide Memoria 180 mcg/inh 10-07 Avis Stef 180 l PWD 120 23:00: mcg/inh Horicon dose 00 PWD 120 dose, 1 inhalation , Drug form: MISC, Route: INHALATION , BID, 10/07/13 17:00:00, Duration: 30 day, Stop date: 11/06/13 9:00:00 Alrex 0.2% No Galilea 1 drp, M emoria ophthalmic 10-07 Avis Stef Route: l suspension 03:00: BOTH EYES, H ermann 00 Bedtime, Drug form: SUSP, Start date: 10/06/13 21:00:00, Duration: 30 day, Stop date: 11/04/13 21:00:00(S sharron as: Lotemax) montelukast No Galilea 10 mg, 1 Memoria 10-07 Avis Stef tab, l 03:00: Route: PO, [place] 00 Drug form: TAB, Bedtime, Dosing Weight 78.182, kg, Start date: 10/06/13 21:00:00, Duration: 30 day, Stop date: 11/04/13 21:00:00(S sharron as:Singula ir) Zantac 75 No Galilea 75 mg, Me moria 10-06 Avis Stef Route: PO, l 23:00: QPM, Vinnie 00 Dosing Weight 78.182, kg, Start date: 10/06/13 17:00:00, Duration: 30 day, Stop date: 11/04/13 17:00:00 Pepcid AC No Galilea 10 mg, 1 Memoria 10-06 Avis Stef tab, l 23:00: Route: PO, Vinnie 00 Drug form: TAB, QPM, Start date: 10/06/13 17:00:00, Duration: 30 day, Stop date: 11/04/13 17:00:00(S sharron as: Pepcid AC) betamethaso Yes 1 appl, Mem oria ne-clotrima 10-06 TOP, l zole 21:25: Daily, PRN Vinnie topical 00 as needed 0.05%-1% for cream itching in ears, 0 Refill(s) Pulmicort No Galilea 1 Semaj shashi Flexhaler 10-06 Avis Stef inhalation l 15:00: , Route: INHALATION , Drug Form: PWDR, Dosing Weight 78.182, kg, BID, Start date: 10/06/13 9:00:00, Duration: 30 day, Stop date: 11/04/13 17:00:00 Fish Oil No Galilea 1,000 mg, Memoria 10-06 Avis Stef 1 cap, l 15:00: Route: PO, Drug form: CAP, Daily, Dosing Weight 78.182, kg, Start date: 10/06/13 9:00:00, Duration: 30 day, Stop date: 11/04/13 9:00:00(Sa me as: MaxEPA, [place] 3 fish oil ) Non-Formul kinza Drug magnesium No Galilea 200 mg, M emoria oxide 10-06 Avis Stef 0.5 tab, l 15:00: Route: PO, Drug form: TAB, BID, Dosing Weight 78.182, kg, Start date: 10/06/13 9:00:00, Duration: 30 day, Stop date: 11/04/13 17:00:00(S sharron as: Mag-Ox 400) Magnesium oxide 258ms=722t g elemental magnesium Dose=____m g magnesium oxide (___mg elemental magnesium) multivitami No Galilea 1 tab, Memoria n 10-06 Avis Stef Route: PO, l 15:00: Drug Form: 00 TAB, Dosing Weight 78.182, kg, Daily, Start date: 10/06/13 9:00:00, Duration: 30 day, Stop date: 11/04/13 9:00:00(Sa me as:Thera) Take with food. liothyronin No Howard 5 Memor ia e 10-06 Fer microgram, l 15:00: Sebastian 1 tab, [place] 00 Route: PO, Drug form: TAB, Daily, Dosing Weight 78.182, kg, Start date: 10/06/13 9:00:00, Duration: 30 day, Stop date: 11/04/13 9:00:00(Sa me as: Cytomel) isosorbide No Galilea 20 mg, 1 Memoria dinitrate 10-06 Avis Stef tab, l 15:00: Route: PO, Vinnie Drug form: TAB, TID, Dosing Weight 78.182, kg, Start date: 10/06/13 9:00:00, Duration: 30 day, Stop date: 11/04/13 17:00:00(S sharron as:Isordil ) Take on empty stomach/ full glass of water Lasix 20 mg No Galilea 20 mg, 1 Memoria oral tablet 10-06 Avis Stef tab, l 15:00: Route: PO, Vinnie 00 Drug form: TAB, Daily, Dosing Weight 78.182, kg, Start date: 10/06/13 9:00:00, Duration: 30 day, Stop date: 11/04/13 9:00:00([facility] as: Lasix) May cause GI upset. Give with food or milk. hydrALAZINE No Galilea 25 mg, 1 Memoria 25 mg oral 10-06 Avis Stfe tab, l tablet 15:00: Route: PO, Salma nn Drug form: TAB, BID, Dosing Weight 78.182, kg, hold for SBP < 110, Start date: 10/06/13 9:00:00, Duration: 30 day, Stop date: 11/04/13 17:00:00(S sharron as: Apresoline ) May interfere w/enteral feedings Take With Food. calcium-vit No Galilea 500 mg, Memoria corona D 500 10-06 Avis Stef Route: l mg-400 intl 15:00: CHEW, Drug Horicon units oral 00 Form: tablet, CHEWTAB, chewable Dosing Weight 78.182, kg, Daily, Start date: 10/06/13 9:00:00, Duration: 30 day, Stop date: 11/04/13 9:00:00(ca lcium carbonate- vit D 500mg-400u nit chew TAB) Same as: Oscal 500+D cyanocobala No Galilea 1,000 M emoria min 10-06 Avis Stef microgram, l 15:00: 1 tab, Hor[place] 00 Route: PO, Drug form: TAB, Daily, Dosing Weight 78.182, kg, Start date: 10/06/13 9:00:00, Duration: 30 day, Stop date: 11/04/13 9:00:00([facility] As: Vitamin B-12) Coreg No Julia 6.25 mg, 1 Mem oria 10-06 Trice tab, l 15:00: Plessner Route: PO, Her jin 00 Drug form: TAB, BID, Dosing Weight 78.182, kg, hold for SBP < 110, Start date: 10/06/13 9:00:00, Stop date: 11/04/13 21:00:00Gi ve with food. (Same As: Coreg) aspirin 81 No Galilea 81 mg, 1 Memoria mg tablet, 10-06 Avis Stef tab, l enteric 15:00: Route: PO, Herm avis coated 00 Drug form: ECTAB, Daily, Dosing Weight 78.182, kg, Start date: 10/06/13 9:00:00, Duration: 30 day, Stop date: 11/04/13 9:00:00Do not crush or chew. (Same As: Ecotrin) Norvasc No Galilea 5 mg, 1 Mem oria 10-06 Avis Stef tab, l 15:00: Route: PO, Vinnie 00 Drug form: TAB, Daily, Dosing Weight 78.182, kg, hold for SBP < 110, Start date: 10/06/13 9:00:00, Duration: 30 day, Stop date: 11/04/13 9:00:00([facility] as: Norvasc) docusate No Galilea 100 mg, 1 Memoria 10-06 Avis Stef cap, l 15:00: Route: PO, Vinnie 00 Drug form: CAP, BID, Dosing Weight 78.182, kg, Start date: 10/06/13 9:00:00, Duration: 30 day, Stop date: 11/04/13 17:00:00(S sharron as: Colace) (Do Not Crush) docusate No Howard 100 mg, 1 Mem oria sodium 100 10-06 Fer cap, l mg oral 15:00: Sebastian Route: PO, He rmann capsule 00 Drug form: CAP, BID, Dosing Weight 78.182, kg, Start date: 10/06/13 9:00:00, Duration: 30 day, Stop date: 11/04/13 17:00:00(S sharron as: Colace) (Do Not Crush) Rocephin No Howard 1 gm, Memoria 10-06 Fer Route: l 14:00: Sebastian IVPB, Drug Salma nn form: PDR/INJ, [id number], Dosing Weight 78.182, kg, Start date: 10/06/13 8:00:00, Duration: 30 day, Stop date: 11/04/13 8:00:00([facility] As: Rocephin). Use with 100ml NS mini-bag PLUS and infuse over 30 min fentanyl No Deven 50 Memor ia 10-06 [place] microgram, l 13:47: Ilochonwu 1 mL, Vinnie 00 Route: IV, Drug form: INJ, ONCE, Dosing Weight 78.182, kg, Start date: 10/06/13 7:47:00, Stop date: 10/06/13 7:47:00, Pediatric Dosing; For procedure; > 50 kg 50 kg(Same as: Sublimaze) Preservati ve free. levothyroxi No Galilea 75 Me moria ne 10-06 Avis Stef microgram, l 12:30: 1 tab, Horicon 00 Route: PO, Drug form: TAB, [id number], Dosing Weight 78.182, kg, Start date: 10/06/13 6:30:00, Duration: 30 day, Stop date: 11/04/13 6:30:00Tak e 1 hour before or 2 hours after meal; Enteral feeds may interefere with the absorption of this medication . (Same as:Synthro id, Levothroid ) Lovenox No Galilea 40 mg, Semaj shashi 10-06 Avis Stef Route: l 10:00: SUB-Q, Vinnie 00 Drug form: INJ, [id number], Dosing Weight 78.182, kg, Priority: Routine, Start date: 10/06/13 4:00:00, Duration: 30 day, Stop date: 11/04/13 4:00:00 fentanyl No Lucila Y 25 Memor ia 10-06 [place] microgram, l 09:59: Route: IVP, ONCE, Dosing Weight 78.182, kg, Priority: STAT, Start date: 10/06/13 3:59:00, Stop date: 10/06/13 3:59:00 insulin No Galilea 8 unit, Mem oria aspart 10-06 Avis Stef 0.08 mL, l 09:12: Route: SUB-Q, Drug form: SOLN, TID-Before Meals, Dosing Weight 78.182, kg, PRN Blood Glucose Results, Start date: 10/06/13 3:12:00, Duration: 30 day, Stop date: 11/05/13 3:11:00Rol l in palms of hands gently; Do not shake vigorously . (Same as: NovoLOG) "single patient use only" Stable for 28 days at room temperatur e. Expires in days from ____Date glucagon No Galilea 1 mg, Semaj shashi 10-06 Avis Stef Route: IM, l 09:12: Drug form: PDR/INJ, PRN, Dosing Weight 78.182, kg, PRN Blood Glucose Results, Start date: 10/06/13 3:12:00, Duration: 30 day, Stop date: 11/05/13 3:11:00 Dextrose No Galilea 12.5 gm, M emoria 50% Syringe 10-06 Avis Stef 25 mL, l 09:12: Route: IVP, Drug Form: INJ, Dosing Weight 78.182, kg, PRN, PRN Blood Glucose Results, Start date: 10/06/13 3:12:00, Duration: 30 day, Stop date: 11/05/13 3:11:00 acetaminoph No Galilea 500 mg, 1 Memoria en 10-06 Avis Stef tab, l 09:10: Route: PO, Drug form: TAB, Q4H, Dosing Weight 78.182, kg, PRN as needed for pain, Start date: 10/06/13 3:10:00, Duration: 30 day, Stop date: 11/05/13 3:09:00Max acetaminop hen 4000 mg/day (4 gm/day). (Same as: Tylenol Extra Strength) tramadol No Galilea 50 mg, 1 M emoria 10-06 Avis Stef tab, l 08:41: Route: PO, [place] 00 Drug form: TAB, Q4H, Dosing Weight 78.182, kg, PRN as needed for pain, > 50 kg, Priority: Routine, Start date: 10/06/13 2:41:00, Duration: 30 day, Stop date: 11/05/13 2:40:00Not to exceed 400mg/day. (Same As: Ultram) ondansetron No Galilea 4 mg, 2 Memoria 10-06 Avis Stef mL, Route: l 07:52: IVP, Drug Vinnie 00 form: INJ, Q8H, Dosing Weight 78.182, kg, PRN Nausea & Vomiting, Start date: 10/06/13 1:52:00, Duration: 30 day, Stop date: 11/05/13 1:51:00(Sa me as: Zolay) garlic oral No 0 Memori a capsule 10-06 Refill(s) l 07:44: Horicon 00 Alrex 0.2% No 0 Memoria ophthalmic 10-06 Refill(s) l suspension 07:44: [place] 00 cranberry No 0 Memoria oral tablet 10-06 Refill(s) l 07:43: [place] 00 magnesium Yes Galilea 200 mg = 1 Memoria oxide 200 10-06 Avis Stef tab, PO, l mg oral 07:42: BID, 0 Vinnie tablet 00 Refill(s) potassium No 595 mg = 1 Me moria gluconate 10-06 tab, PO, l 595 mg oral 07:42: Daily, # He rmann tablet 00 100 tab, 0 Refill(s) multivitami No Galilea 0 Me moria n 10-06 Avis Stef Refill(s) l 07:42: Vinnie 00 Alrex 0.2% Yes Galilea 1 drp, M emoria ophthalmic 10-06 Avis Stef BOTH EYES, l suspension 07:42: Bedtime, # H ermann 00 5 ml, 0 Refill(s) Pulmicort No Galilea 0 Semaj shashi Flexhaler 10-06 Avis Stef Refill(s) l 180 mcg/inh 07:42: Leland n inhalation 00 powder glipiZIDE No 5 mg, PO, Mem oria 10-06 TID, 0 l 07:42: Refill(s) Hor[place] 00 levothyroxi Yes Galilea 75 Me moria ne 75 mcg 10-06 Avis Stef microgram l (0.075 mg) 07:42: = 1 tab, Her jin oral tablet 00 PO, Daily, # 30 tab, 0 Refill(s) Coreg 3.125 No Galilea 3.125 mg = Memoria mg oral 10-06 Avis Stef 1 tab, PO, l tablet 07:42: TID, # 180 Salma nn 00 tab, 0 Refill(s) isosorbide Yes Galilea 20 mg = 1 Memoria dinitrate 10-06 Avis Stef tab, PO, l 20 mg oral 07:42: TID, # 120 H ermann tablet 00 tab, 0 Refill(s) Coumadin Yes 7.5mg 2x Memor ia 10-06 per week, l 07:42: 6mg the Vinnie 00 other 5 days a week, 0 Refill(s) hydrALAZINE Yes Galilea 25 mg = 1 Memoria 25 mg oral 10-06 Avis Stef tab, PO, l tablet 07:42: BID, # 120 Salma nn 00 tab, 0 Refill(s) Lasix 20 mg Yes Galilea 20 mg = 1 Memoria oral tablet 10-06 Avis Stef tab, PO, l 07:42: Daily, # Horicon 00 30 tab, 0 Refill(s) Norvasc 5 Yes Galilea 5 mg = 1 Memoria mg oral 10-06 Avis Stef tab, PO, l tablet 07:42: Daily, # Hor[place] 00 30 tab, 0 Refill(s) calcium-vit Yes Galilea 1 tab, Memoria corona D 500 10-06 Avis Stef CHEW, l mg-400 intl 07:42: Daily, # He rmann units oral 00 60 tab, 0 tablet, Refill(s) chewable Vitamin Yes Galilea 1,000 Memor ia B-12 1000 10-06 Avis Stef microgram l mcg oral 07:42: = 1 tab, Salma nn tablet 00 PO, Daily, # 30 tab, 0 Refill(s) montelukast Yes Galilea 10 mg = 1 Memoria 10 mg oral 22 Avis Stef tab, PO, l tablet 07:42: Bedtime, # Salma nn 00 30 tab, 0 Refill(s) Zantac 75 Yes Galilea 75 mg, PO, Memoria 10-06 Avis Stef QPM, 0 l 07:42: Refill(s) Hor[place] 00 Fish Oil Yes Galilea 1,000 mg = Memoria 1000 mg 10-06 Avis Stef 1 cap, PO, l oral 07:42: Daily, 0 Vinnie capsule 00 Refill(s) Garlic Oil No 0 Memoria oral 10-06 Refill(s) l capsule 07:42: Vinnie 00 Tylenol No Galilea 500 mg = 1 Memoria Caplet 10-06 Avis Stef tab, PO, l Extra 07:42: Q4H, [place] Strength 00 Fever, # 500 mg oral 60 tab, 0 tablet Refill(s) clotrimazol No 0 Memori a e topical 10-06 Refill(s) l 1% solution 07:41: Leland n 00 Vitamin B12 No 0 Memori a 10-06 Refill(s) l 07:41: Vinnie 00 Vitamin C No 0 Memoria 10-06 Refill(s) l 07:41: [place] 00 montelukast No 0 Memori a 10 mg oral 10-06 Refill(s) l tablet 07:40: Vinnie 00 aspirin 81 No 0 Memoria mg tablet, 10-06 Refill(s) l chewable 07:40: Vinnie 00 Fish Oil No 0 Memoria 10-06 Refill(s) l 07:40: [place] 00 Zantac 75 No 0 Memoria -22 Refill(s) l 07:40: Vinnie 00 magnesium 2014-0 No 0 Memoria oxide 200 1-22 Refill(s) l mg oral 07:39: Vinnie tablet 00 potassium No 0 Memoria gluconate 1-22 Refill(s) l 595 mg oral 07:39: Leland n tablet 00 Pulmicort No 0 Memoria Flexhaler 1-22 Refill(s) l 07:35: Vinnie 00 glipiZIDE No 0 Memoria 1-22 Refill(s) l 07:35: Vinnie 00 levothyroxi No 0 Memori a ne 75 mcg -22 Refill(s) l (0.075 mg) 07:34: Horicon oral tablet 00 warfarin No 0 Memoria 7.5 mg oral -22 Refill(s) l tablet 07:34: Vinnie 00 carvedilol No 0 Memoria 3.125 mg 1-22 Refill(s) l oral tablet 07:34: Leland n 00 isosorbide No 0 Memoria dinitrate -22 Refill(s) l 20 mg oral 07:34: Horicon tablet 00 hydrALAZINE No 0 Memori a 25 mg oral 1-22 Refill(s) l tablet 07:33: [place] 00 amLODIPine No 0 Memoria 5 mg oral 1-22 Refill(s) l tablet 07:33: Vinnie 00 fentanyl 0 No Lucila Y 25 Memor ia 1-22 [place] microgram, l 07:26: Route: Vinnie 00 IVP, ONCE, Dosing Weight 78.182, kg, Priority: STAT, Start date: 10/06/13 1:26:00, Stop date: 10/06/13 1:26:00 Sodium 0 No Lucila Y 1,000 mL, Me moria Chloride -22 [place] Rate: 125 l 0.9% IV 06:36: ml/hr, Horicon 1,000 mL 00 Infuse over: 8 hr, Route: IV, Dosing Weight 78.182 kg, Total Volume: 1,000, Start date: 10/06/13 0:36:00, Duration: 30 day, Stop date: 11/05/13 0:35:00 Vital Signs Vital Name Observation Time Observation Value Comments Source Respitory Rate 2019-03-08 17:43:00 Memori al [place] Heart Rate 2019-03-08 17:43:00 [facility] [place] Temperature Oral (F) 2019-03-08 17:43:00 98.2 F [facility] Vinnie Systolic (mm Hg) 2019-03-08 17:43:00 Semaj rial Vinnie Diastolic (mm Hg) 2019-03-08 17:43:00 Mem orial [place] Systolic (mm Hg) 2019-03-08 14:02:00 Semaj rial [place] Diastolic (mm Hg) 2019-03-08 14:02:00 Mem orial [place] Respitory Rate 2019-03-08 14:02:00 Memori al Vinnie Temperature Oral (F) 2019-03-08 14:02:00 98.3 F [facility] [place] Heart Rate 2019-03-08 14:02:00 [facility] [place] Respitory Rate 2019-03-08 12:28:00 Memori al [place] Heart Rate 2019-03-08 09:01:00 [facility] [place] Temperature Oral (F) 2019-03-08 09:01:00 98.3 F [facility] Vinnie Systolic (mm Hg) 2019-03-08 09:01:00 Semaj rial [place] Diastolic (mm Hg) 2019-03-08 09:01:00 Mem orial Vinnie Height 2019-03-05 11:22:00 170.18 cm [facility] [place] Weight 2019-03-05 11:22:00 [facility] [place] BMI Calculated 2019-03-05 11:22:00 Memori al [place] Height 2019-02-26 11:15:00 170.18 cm [facility] [place] Height 2019-02-26 07:50:00 170.18 cm [facility] [place] Weight 2019-02-21 04:14:00 [facility] [place] BMI Calculated 2019-02-21 04:14:00 Memori al [place] BMI Calculated 2019-02-21 00:16:00 Memori al Vinnie Weight 2019-02-21 00:16:00 [facility] [place] Temperature Oral (F) 2013-10-18 13:31:00 97.4 F [facility] [place] Diastolic (mm Hg) 2013-10-18 13:31:00 Mem orial [place] Respitory Rate 2013-10-18 13:31:00 Memori al [place] Heart Rate 2013-10-18 13:31:00 [facility] [place] Systolic (mm Hg) 2013-10-18 13:31:00 Semaj rial [place] Temperature Oral (F) 2013-10-18 10:26:00 97.5 F [facility] [place] Respitory Rate 2013-10-18 10:26:00 Memori al [place] Heart Rate 2013-10-18 10:26:00 [facility] Vinnie Diastolic (mm Hg) 2013-10-18 10:26:00 Mem orial [place] Systolic (mm Hg) 2013-10-18 10:26:00 Semaj rial Vinnie Respitory Rate 2013-10-18 06:42:00 Memori al [place] Temperature Oral (F) 2013-10-18 06:42:00 98.0 F [facility] V[place] Systolic (mm Hg) 2013-10-18 06:42:00 Semaj rial Vinnie Heart Rate 2013-10-18 06:42:00 [facility] [place] Diastolic (mm Hg) 2013-10-18 06:42:00 Mem orial [place] Weight 2013-10-07 08:05:00 [facility] [place] Height 2013-10-07 08:05:00 167.64 cm [facility] [place] Weight 2013-10-06 06:08:00 [facility] [place] Height 2013-10-06 06:08:00 167.64 cm [facility] [place] Procedures Procedure Date / Time Performing Clinician Source Performed HOME HEALTH - OTHER 2019-05-19 05:01:00 Doctor Unassigned, [facility] AUTHORIZATION FOR RELEASE 2019-03-10 05:01:00 Doctor Unassigned, [facility] Percutaneous coronary 2011-04-16 05:00:00 Shubham Avalos intervention O[place] 1956-03-09 05:00:00 Lydia jin operation<sup>1</sup> Appendectomy 1955-12-07 06:00:00 Lydia jin Bunionectomy Lydia [place] Cholecystectomy [facility] Knee replacement Lydia Ha n [facility] [place] Encounters Start End Encounter Admission Attending Care Care Encounter Source Date/Time Date/Time Type Type Clinicians Facility Department ID 2021-07-13 Emergency [facility] [id number] [facility] 15:52:24 ity [facility] [place] 2020-10-04 Inpatient EL Pepper, [facility] [id number] [facility] 13:00:[address] [facility] 2020-08-24 Inpatient EL Isha, [facility] [id number] [facility] 13:00:[address] [facility] 2019-02-20 Inpatient E [facility] MED [id number] [facility] L 20:55:00 2020-07-18 2020-07-18 Outpatient Isha, [facility] [id number] [facility] 09:30:00 09:30:[address] [facility] 2020-05-26 2020-05-26 Transition Honey [place] [id number] [facility] 00:00:00 00:00:00 of Care Nicole Arita [id number] it y of [place] 4.2.7.2.686 [facility] [id number] [facility] [address] [place] 2020-05-26 2020-05-26 Transition Honey [place] [id number] 00:00:00 00:00:00 of Care Nicole Arita [id number] [place] [id number] [id number] [facility] 2019-12-09 2019-12-09 Outpatient Shaina WELLS [facility] [id number] [facility] 10:30:00 10:30:00 JBMARIYA morse [facility] 2019-12-01 2019-12-01 Outpatient Shaina WELLS [facility] [id number] [facility] 13:00:00 13:00:00 JB lito [facility] 2019-08-24 2019-08-24 Outpatient Shaina RICARDO [facility] [id number] Univers 10:36:58 23:59:00 HILDA morse [facility] 2019-05-19 2019-05-19 [employer] 1, Adc Lab [facility] [id number] Univers 15:02:08 15:17:08 Visit Khadijah Saul 350.1.13 .10 lAan 4.2.7.2.686 [facility] [id number] [facility] [address] 2019-05-19 2019-05-19 [employer] 1, Adc Lab [facility] [id number] 15:02:08 15:17:08 Visit Yaneth [id number] [place] 4.2.7.2.686 [place] [id number] 2019-05-19 2019-05-19 Orders Doctor DOMINGA [id number] Univers 00:00:00 00:00:00 Only Unassigned, BLAKE [id number] ity of [facility] 4.2.7.2.686 Demetrio as [id number] [address] 2019-05-19 2019-05-19 Orders Doctor DOMINGA 1.2.840.114 [id number] 00:00:00 00:00:00 Only Unassigned, BLAKE [id number] [facility] 4.2.7.2.686 [id number] 2019-03-10 2019-03-10 Orders Doctor DOMINGA [id number] Univers 00:00:00 00:00:00 Only Unassigned, BLAKE [id number] ity of [place] [facility] 4.2.7.2.686 Demetrio as [id number] [address] 2019-03-10 2019-03-10 Orders Doctor DOMINGA [id number] 00:00:00 00:00:00 Only Unassigned, BLAKE [id number] [facility] 4.2.7.2.686 [id number] 2019-02-21 2019-03-09 Inpatient [facility] [id number] Memoria 00:14:18 00:15:00 [facility] 00 l [facility] 2019-02-20 2019-03-[address] [id number] 19:14:18 19:15:00 José 00 [place] 2019-02-12 2019-02-20 Inpatient 3 AMINA, YOLANDA [facility] [id number] [facility] 22:30:00 19:00:00 NARAYAN 05[facility] it[facility] Bridgette matthews 2013-10-06 2013-10-18 Outpatient 2.16.840. 2.16.840.1. 4 [id number] Memoria 00:05:00 10:54:00 [id number] l 3.615.0.1 5.0.101 [facility] n [facility] l 2013-10-05 2013-10-18 Inpatient nullFlavo [facility] [id number] Memoria 01:11:00 10:54:00 Medical [facility] Results Test Description Test Time Test Comments [...] units: ml/min/1.73 code = GFR) m2 (Modified MD RD Formula)Referen ce Range: > or = 60 ml/min/1.7 3 m2 CREATININE (test code = CREAT) 1.00 MG/DL 0.52-1.04 N CALCIUM (test code = CA) 8.6 MG/DL 8.4-10.2 N [id number] 14:40:00 Test Item Value Reference Range Interpretation Comments MAGNESIUM (test code = MAG) 2.1 MG/DL 1.6-2.3 N BASIC METABOLIC [id number] 14:36:00 Test Item Value Reference Range Interpretation [...] CALCIUM (test code = MG/DL 8.7-9.7 CA) [id number] 14:36:00 Test Item Value Reference Range Interpretation Comments MAGNESIUM (test code = MAG) MG/DL 1.6-2.3 BASIC METABOLIC [id number] 14:34:00 Test Item Value Reference Range Interpretation [...] CALCIUM (test code = CA) MG/DL 8.7-9.7 [id number] 14:34:00 Test Item Value Reference Range Interpretation Comments MAGNESIUM (test code = MAG) MG/DL 1.6-2.3 CBC W/AUTO [id number] 14:15:00 Test Item Value Reference Range Interpretation [...] 0.00 K/mm3 0.0-0.1 N NRBC#) ARTERIAL BLOOD [id number] 19:02:00 Test Item Value Reference Range Interpretation [...] = SATA) report to and readback by [facility] NURSE by ANDREW at 10/04/2020 7:01: 33 PM ABG DELIVERY (test NRBMASK code = RUTHIE) ABG TEMPERATURE (test 37.0 C >37 code = TEMPA) ABG SITE (test code = LINE SITEA) ALLENS TEST (test code Y CHECK = ALLENS) FIO2 (test code = 80 % COHBGFFIO2) [id number] 19:02:00 Test Item Value Reference Range Interpretation Comments PaO2/FiO2 (test code = [id number]) mm/Hg ARTERIAL BLOOD [id number] 19:02:00 Test Item Value Reference Range Interpretation [...] = SATA) report to and readback by [facility] NURSE by ANDREW at 10/04/2020 7:01: 33 PM ABG DELIVERY (test NRBMASK code = RUTHIE) ABG TEMPERATURE (test 37.0 C >37 code = TEMPA) ABG SITE (test code = LINE SITEA) ALLENS TEST (test code Y CHECK = ALLENS) FIO2 (test code = 80 % COHBGFFIO2) [id number] 19:02:00 Test Item Value Reference Range Interpretation Comments PaO2/FiO2 (test code = [id number]) 140.62 mm/Hg BASIC METABOLIC [id number] 16:01:00 Test Item Value Reference Range Interpretation [...] 8.9 MG/DL 8.4-10.2 N CA) BASIC METABOLIC [id number] 15:59:00 Test Item Value Reference Range Interpretation [...] code = MG/DL 8.7-9.7 CA) BASIC METABOLIC [id number] 15:57:00 Test Item Value Reference Range Interpretation [...] code = CA) MG/DL 8.7-9.7 BASIC METABOLIC [id number] 15:56:00 Test Item Value Reference Range Interpretation [...] = CA) MG/DL 8.7-9.7 - XR CHEST [id number] 15:51:[address] [facility] 1935 Sex: F Patient Name: NED SCHWARTZ Unit No: [id number] EXAMS: CPT CODE: [id number] XR CHEST 1V [id number] TIME OF STUDY: 10/04/2020 3:17 PM REASON [...] and calcific atherosclerosis. Bones: Normal regional skeletal structures. IMPRESSION: 1. Left-sided pacemaker/ICD in place. The leads do not appear to follow a conventional course. Correlate with history. No pneumothorax. at 1551 Reported and signed by: Carlos Mccoy MD CC: Sean Duran MD; Vernon Vieira; Santy Barfield MD Technologist: Brenda Borges (RT) Transcrpt Date/Tm/Trnsp: 10/04/2020 (8401) [email or web address] Orig Print D/T: S: 10/04/2020 (7092) [facility] NAME: NED SCHWARTZ [id number] PHYS: [place] [address] : 1935 AGE: 85 SEX: F LOC: ZEdwinCCL PHONE #: [phone] EXAM DATE: 10/04/2020 STATUS: REG SDC FAX #: [phone] RADIOLOGY NO: PAGE 1 Signed ReportBASIC METABOLIC [id number] 07:23:00 Test Item Value Reference Range Interpretation [...] code = 9.8 MG/DL 8.4-10.2 N CA) [id number] 07:23:00 Test Item Value Reference Range Interpretation Comments MAGNESIUM (test code = MAG) 2.1 MG/DL 1.6-2.3 N PROTHROMBIN [id number] 07:20:00 Test Item Value Reference Range Interpretation Comments PROTHROMBIN TIME 13.8 SECONDS 9.4-12.5 H PATIENT (test code = PTP) INTERNATIONAL NORMAL 1.2 The INR is to be RATIO (test code = used only for INR) monitoring oral anticoagulantth erap y. INDICATION I NR VALUE ---- ---- ---- -------1. Prophylaxis, de ep venous thrombos is, including high risk surgery. 2.0 - 3.0 2. Prophylaxis, deep venous thrombosis, hip surgery, treatm ent for deep venous thrombosis or pulmonary prevention of systemic emboli sm in patients wit h valvular heart disease, atrial fibrillation, tissue heart va lve, or acute myocar dial infarction. 2.0 - 3.0 3. Entry Level Lab Technician al prosthesis hear t valves, recurre nt systemic emboli sm. 3.0 - 4.5 PTT [id number] 07:20:00 Test Item Value Reference Range Interpretation Comments PTT ACTIVATED (test code = APTT) 35.3 SECONDS 25.1-36.5 N BASIC METABOLIC [id number] 07:13:00 Test Item Value Reference Range Interpretation [...] CALCIUM (test code = MG/DL 8.7-9.7 CA) [id number] 07:13:00 Test Item Value Reference Range Interpretation Comments MAGNESIUM (test code = MAG) MG/DL 1.6-2.3 CBC W/AUTO [id number] 07:11:00 Test Item Value Reference Range Interpretation [...] 0.00 K/mm3 0.0-0.1 N NRBC#) BASIC METABOLIC [id number] 07:11:00 Test Item Value Reference Range Interpretation [...] CALCIUM (test code = CA) MG/DL 8.7-9.7 [id number] 07:11:00 Test Item Value Reference Range Interpretation Comments MAGNESIUM (test code = MAG) MG/DL 1.6-2.3 BASIC METABOLIC [id number] 07:10:00 Test Item Value Reference Range Interpretation [...] CALCIUM (test code = CA) MG/DL 8.7-9.7 [id number] 07:10:00 Test Item Value Reference Range Interpretation Comments MAGNESIUM (test code = MAG) MG/DL 1.6-2.3 COVID 19 Asymptomatic IH [id number] 16:58:00 Test Item Value Reference Range Interpretation Comments COVID 19 NEGATIVE Negative "Negative resul ts from Asymptomatic IH AG patients with symptom (test code = onset beyondfiv e days, COVNONPUIAG) should be treat ed as presumptive, andconfirmation with a molecular assay [...] virus (antigen) in the sample." GLUCOSE BEDSIDE [id number] 11:53:00 Test Item Value Reference Range Interpretation Comments GLUCOSE BEDSIDE TESTING (test code = 94 MG/DL 60-99 N GLUBED) GLUCOSE BEDSIDE [id number] 08:02:00 Test Item Value Reference Range Interpretation Comments GLUCOSE BEDSIDE TESTING (test code 117 MG/DL 60-99 H = GLUBED) BASIC METABOLIC [id number] 07:19:00 Test Item Value Reference Range Interpretation [...] 9.2 MG/DL 8.4-10.2 N CA) BASIC METABOLIC [id number] 06:41:00 Test Item Value Reference Range Interpretation [...] code = CA) MG/DL 8.7-9.7 CBC W/AUTO [id number] 06:27:00 Test Item Value Reference Range Interpretation [...] 0.00 K/mm3 0.0-0.1 N NRBC#) GLUCOSE BEDSIDE [id number] 20:07:00 Test Item Value Reference Range Interpretation Comments GLUCOSE BEDSIDE TESTING (test code = 95 MG/DL 60-99 N GLUBED) GLUCOSE BEDSIDE [id number] 16:22:00 Test Item Value Reference Range Interpretation Comments GLUCOSE BEDSIDE TESTING (test code 103 MG/DL 60-99 H = GLUBED) - XR CHEST [id number] 15:05:[address] [facility] : 1935 Sex: F Patient Name: NED SCHWARTZ Unit No: [id number] EXAMS: CPT CODE: [id number] XR CHEST 1V [id number]: [id number] EXAM: CHEST 1 VIEW INDICATION: , Attempted venous access. COMPARISON: None. TECHNIQUE:AP chest radiograph. FINDINGS: Diffuse bilateral interstitial lung markings likely chronic interstitial lung disease. Calcification aorta present. No pleural effusion is seen. Heart is normal in size.Bones and peripheral soft tissues are unremarkable. IMPRESSION: Findings concerning for chronic interstitial lung disease. at 1505 Reported and signed by: Neftali Martin MD CC: Sean Duran MD; Vernon Vieira Technologist: Khai Muñoz, RT(R) Transcrpt Date/Tm/Trnsp: 07/18/2020 (1505) t.[email or web address] Orig Print D/T: S: 07/18/2020 (1508)[facility] NAME: NED SCHWARTZ [address] PHYS: [place] [address] : 1935 AGE: 85 SEX: F LOC: Z.DC4T A PHONE #: [phone] EXAM DATE: 07/18/2020 STATUS: ADM IN FAX #: [phone] RADIOLOGY NO: PAGE 1 Signed ReportBASIC METABOLIC [id number] 07:39:00 Test Item Value Reference Range Interpretation [...] 9.8 MG/DL 8.4-10.2 N CA) Comments to Sterile Process Coordinator: NURSE WILL BRING SPECIMEN TO LABIs this a LINE draw? N [id number] 07:39:00 Test Item Value Reference Range Interpretation Comments MAGNESIUM (test code = MAG) 2.1 MG/DL 1.6-2.3 N Comments to Sterile Process Coordinator: NURSE WILL BRING SPECIMEN TO LABIs this a LINE draw? N PROTHROMBIN [id number] 07:27:00 Test Item Value Reference Range Interpretation Comments PROTHROMBIN TIME 13.0 SECONDS 9.4-12.5 H PATIENT (test code = PTP) INTERNATIONAL NORMAL 1.2 The INR is to be RATIO (test code = used only for INR) monitoring oral anticoagulantth erap y. INDICATION INR VALUE ---- ---- ---- -------1. Prophylaxis, de ep venous thrombos is, including high risk surgery. 2.0 - 3.0 2. Prophylaxis, deep venous thrombosis, hip surgery, treatm ent for deep venous thrombosis or pulmonary prevention of systemic emboli sm in patients wit h valvular heart disease, atrial fibrillation, tissue heart va lve, or acute myocar dial infarction. 2.0 - 3.0 3. Entry Level Lab Technician al prosthesis hear t valves, recurre nt systemic emboli sm. 3.0 - 4.5 Comments to Sterile Process Coordinator: NURSE WILL BRING SPECIMEN TO LABComments to Sterile Process Coordinator: NURSE GANESH BRING SPECIMEN TOLABPTT [id number] 07:27:00 Test Item Value Reference Range Interpretation Comments PTT ACTIVATED (test code = APTT) 33.4 SECONDS 25.1-36.5 N Comments to Sterile Process Coordinator: NURSE WILL BRING SPECIMEN TO LABComments to Sterile Process Coordinator: NURSE GANESH BRING SPECIMEN TOLABCBC W/AUTO [id number] 07:11:00 Test Item Value Reference Range Interpretation [...] 0.00 K/mm3 0.0-0.1 N NRBC#) Comments to Sterile Process Coordinator: NURSE WILL BRING SPECIMEN TO LABIs this a LINE draw? N Coronavirus 2019 nCoV [id number] 15:55:00 Test Item Value Reference Range Interpretation Comments Coronavirus 2019 Negative Negative Results are for the nCoV Bedside (test identific ation of code = SARS-CoV-2 RNA. [id number]) SvfJVVA-JjG-4 RNA is generally detec table in respiratorysamp les during the acute phase of infection. Posi tiveresults are indicative of the presence of SANDRA S-CoV-2 RNA;clinical co rrelation with patient hi story and otherdiagnostic information is necessary to determine patientinfectio n status. Positive result s do not rule out bacterialinfect ion or co-infection wi th other viruses. [id number] 20:42:00 Test Item Value Reference Range Interpretation Comments PT (test code = PT) 18.7 s 12.0-14.7 [facility]hrfctZZGUIQTZCH8423-99-20 20:42:00 Test Item Value Reference Range Interpretation Comments INR (test code = INR) 1.60 1 0.85-1.17 [facility]ThjnwmwWYERZXTTRK0538-71-30 09:13:00 Test Item Value Reference Range Interpretation Comments PT (test code = PT) 19.6 s 12.0-14.7 [facility] SystemQcdlevmCEJNATFQSB4508-53-57 09:13:00 Test Item Value Reference Range Interpretation Comments INR (test code = INR) 1.70 1 0.85-1.17 [facility]2019-06-22 10:24:00 Test Item Value Reference Range Interpretation Comments eGFR (test code = eGFR) 70 [facility]2019-06-22 10:24:00 Test Item Value Reference Range Interpretation Comments CO2 (test code = CO2) 31 24-32 [facility]2019-06-22 10:24:00 Test Item Value Reference Range Interpretation Comments Calcium Lvl (test code = Calcium Lvl) 8.8 8.5-10.5 [facility]2019-06-22 10:24:00 Test Item Value Reference Range Interpretation Comments Chloride Lvl (test code = Chloride Lvl) 102 95-109 [facility]2019-06-22 10:24:00 Test Item Value Reference Range Interpretation Comments BUN (test code = BUN) 19 7-22 [facility]2019-06-22 10:24:00 Test Item Value Reference Range Interpretation Comments Glucose Lvl (test code = Glucose Lvl) 101 70-99 [facility]2019-06-22 10:24:00 Test Item Value Reference Range Interpretation Comments Potassium Lvl (test code = Potassium 4.0 3.5-5.1 Lvl) [facility]2019-06-22 10:24:00 Test Item Value Reference Range Interpretation Comments Creatinine Lvl (test code = Creatinine 0.78 0.50-1.40 Lvl) [facility]2019-06-22 10:24:00 Test Item Value Reference Range Interpretation Comments Sodium Lvl (test code = Sodium Lvl) 139 135-145 [facility]2019-06-22 10:24:00 Test Item Value Reference Range Interpretation Comments AGAP (test code = AGAP) 10.0 10.0-20.0 [facility] S[id number] 10:24:00 Test Item Value Reference Range Interpretation Comments PT (test code = PT) 22.5 s 12.0-14.7 [facility]az[facility]mpOQKGUECVGS7482-91-72 10:24:00 Test Item Value Reference Range Interpretation Comments INR (test code = INR) 2.03 1 0.85-1.17 [facility]GxqrgpaBJDHTJENZQBP9639-41-95 09:31:00 Test Item Value Reference Range Interpretation Comments AGAP (test code = AGAP) 10.1 10.0-20.0 [facility] CenterPsqorgcZOOVGGLQBJZO4033-37-53 09:31:00 Test Item Value Reference Range Interpretation Comments Calcium Lvl (test code = Calcium Lvl) 8.8 8.5-10.5 [facility] CenterWcmjnzpLNUEQJXQOTOH9689-15-77 09:31:00 Test Item Value Reference Range Interpretation Comments CO2 (test code = CO2) - [facility] CenterFsutaelKNCANDRAPIIH8250-31-89 09:31:00 Test Item Value Reference Range Interpretation Comments Chloride Lvl (test code = Chloride Lvl) 101 95-109 [facility] CenterVtysdqtRSSXALDPYEIV1983-97-67 09:31:00 Test Item Value Reference Range Interpretation Comments BUN (test code = BUN) 21 -22 [facility] CenterEjtqmhgEMSFQYLLSWLP9140-22-61 09:31:00 Test Item Value Reference Range Interpretation Comments Glucose Lvl (test code = Glucose Lvl) 108 70-99 [facility] CenterSraedceHVCOSUVRXVSC3927-47-08 09:31:00 Test Item Value Reference Range Interpretation Comments Sodium Lvl (test code = Sodium Lvl) 138 135-145 [facility] CenterUqksrjaQLKQHKSPQWTR8271-79-34 09:31:00 Test Item Value Reference Range Interpretation Comments Creatinine Lvl (test code = Creatinine 0.82 0.50-1.40 Lvl) [facility] CenterNrqwwpgHXHLIDEATKRT8348-24-38 09:31:00 Test Item Value Reference Range Interpretation Comments Potassium Lvl (test code = Potassium 4.1 3.5-5.1 Lvl) [facility] CenterNwoqlzxOKBABOCJJLIG2107-57-40 09:31:00 Test Item Value Reference Range Interpretation Comments eGFR (test code = eGFR) 66 [facility] CenterMqvvzizKCDIXTBOZZTE4563-80-33 09:50:00 Test Item Value Reference Range Interpretation Comments CO2 (test code = CO2) 32 24-32 [facility] CenterUnfnaeaQOAOEGADVVVW7317-07-43 09:50:00 Test Item Value Reference Range Interpretation Comments Chloride Lvl (test code = Chloride Lvl) 99 95-109 [facility] CenterDnjuglxLMCWUYYOGHXL8273-07-25 09:50:00 Test Item Value Reference Range Interpretation Comments Potassium Lvl (test code = Potassium 3.5 3.5-5.1 Lvl) [facility] CenterZvelpjwSXDLVODSJRJY6185-53-39 09:50:00 Test Item Value Reference Range Interpretation Comments eGFR (test code = eGFR) 66 [facility] CenterFqolhaeMHPNLBWBTRVE9293-62-91 09:50:00 Test Item Value Reference Range Interpretation Comments Calcium Lvl (test code = Calcium Lvl) 8.9 8.5-10.5 [facility] CenterCulkuyfFHXOYNPIMFVR9269-23-30 09:50:00 Test Item Value Reference Range Interpretation Comments BUN (test code = BUN) 18 7-22 [facility] CenterGjchxvdXCEZLGNQLIIB9249-36-89 09:50:00 Test Item Value Reference Range Interpretation Comments Sodium Lvl (test code = Sodium Lvl) 138 135-145 [facility] CenterQbztpprAWDKWQVQEPJY6177-12-78 09:50:00 Test Item Value Reference Range Interpretation Comments Creatinine Lvl (test code = Creatinine 0.82 0.50-1.40 Lvl) [facility] CenterVfxjmjrHOQYHTGFYGOU0454-20-69 09:50:00 Test Item Value Reference Range Interpretation Comments Glucose Lvl (test code = Glucose Lvl) 99 70-99 [facility] CenterNrqqgdpECJGVPUWFYKL4892-13-62 09:50:00 Test Item Value Reference Range Interpretation Comments AGAP (test code = AGAP) 10.5 10.0-20.0 [facility] SystemXtltbibFYIHNGXHED2205-77-59 09:50:00 Test Item Value Reference Range Interpretation Comments RBC (test code = RBC) 3.56 4.20-5.40 [facility] SystemPwrzhmmUHGAZXXDUB7830-65-10 09:50:00 Test Item Value Reference Range Interpretation Comments WBC (test code = WBC) 8.1 3.7-10.4 [facility] SystemJpnbmtiMUKBJXYTQY4763-96-97 09:50:00 Test Item Value Reference Range Interpretation Comments Hct (test code = Hct) 33.2 36.0-48.0 [facility] SystemRujdseeBOHWCPRTFY9775-00-55 09:50:00 Test Item Value Reference Range Interpretation Comments Hgb (test code = Hgb) 10.9 12.0-16.0 [facility] SystemTcijortRCPUJFPTXF0425-09-15 09:50:00 Test Item Value Reference Range Interpretation Comments MCH (test code = MCH) 30.5 pg 27.0-31.0 [facility] SystemOtitiebATLYFALQUY2028-08-65 09:50:00 Test Item Value Reference Range Interpretation Comments MCV (test code = MCV) 93.3 80.0-98.0 [facility] SystemAohcqxwCCLWMUQICO8506-24-46 09:50:00 Test Item Value Reference Range Interpretation Comments MCHC (test code = MCHC) 32.7 32.0-36.0 [facility] SystemCigxfycVUJHHSDZML3225-15-38 09:50:00 Test Item Value Reference Range Interpretation Comments Platelet (test code = Platelet) 415 667-814 [facility] SystemZxtadagVHMZZACSRW5401-06-57 09:50:00 Test Item Value Reference Range Interpretation Comments MPV (test code = MPV) 7.1 7.4-10.4 [facility] SystemVwkqixhHVPEVJQGSK0995-98-71 09:50:00 Test Item Value Reference Range Interpretation Comments RDW (test code = RDW) 15.3 11.5-14.5 [facility] SystemMpnktrpRZJNDFYTHP0842-61-65 22:04:00 Test Item Value Reference Range Interpretation Comments RDW (test code = RDW) 15.6 11.5-14.5 [facility] SystemOcmvwmqDXCYYRNVRU4017-49-17 22:04:00 Test Item Value Reference Range Interpretation Comments MPV (test code = MPV) 7.0 7.4-10.4 [facility] SystemWghbshcRVZLXDEVUC9766-68-55 22:04:00 Test Item Value Reference Range Interpretation Comments Platelet (test code = Platelet) 382 133-007 [facility] SystemVjsbykzBDYDFVQSNW6950-94-70 22:04:00 Test Item Value Reference Range Interpretation Comments MCH (test code = MCH) 29.9 pg 27.0-31.0 [facility] SystemIepbnibRYQJUUWSKY0632-34-86 22:04:00 Test Item Value Reference Range Interpretation Comments Hct (test code = Hct) 33.6 36.0-48.0 [facility] SystemRjitriwWMVIPIUMKV0220-31-13 22:04:00 Test Item Value Reference Range Interpretation Comments MCV (test code = MCV) 93.6 80.0-98.0 [facility] SystemXwvhaviPYGSZWKBMZ2634-57-12 22:04:00 Test Item Value Reference Range Interpretation Comments RBC (test code = RBC) 3.59 4.20-5.40 [facility] SystemIsckvlhVSVWWEHIUT3266-46-26 22:04:00 Test Item Value Reference Range Interpretation Comments Hgb (test code = Hgb) 10.7 12.0-16.0 [facility] SystemDvhnkamTBFXFRZLRY5332-05-51 22:04:00 Test Item Value Reference Range Interpretation Comments MCHC (test code = MCHC) 31.9 32.0-36.0 [facility] SystemXjtsoriOXLHZJXIVS9177-92-89 22:04:00 Test Item Value Reference Range Interpretation Comments WBC (test code = WBC) 6.5 3.7-10.4 [facility]2019-06-15 11:20:00 Test Item Value Reference Range Interpretation Comments Phosphorus (test code = Phosphorus) 3.8 2.5-4.5 [facility]2019-06-15 11:20:00 Test Item Value Reference Range Interpretation Comments Magnesium Lvl (test code = Magnesium 2.1 1.8-2.4 Lvl) [facility] SystemVnycfljKCMMDSZHLP8324-01-73 11:20:00 Test Item Value Reference Range Interpretation Comments Hgb (test code = Hgb) 9.9 12.0-16.0 [facility] SystemSsdnjimUOTCOEBHVE1351-95-34 11:20:00 Test Item Value Reference Range Interpretation Comments RDW (test code = RDW) 15.8 11.5-14.5 [facility] SystemPuocnukTHVFECTNBY5291-52-18 11:20:00 Test Item Value Reference Range Interpretation Comments WBC (test code = WBC) 9.9 3.7-10.4 [facility] SystemVsyxxzfCFVXSZUYLF9883-28-75 11:20:00 Test Item Value Reference Range Interpretation Comments Platelet (test code = Platelet) 355 133-450 [facility] SystemYdnkwloTNHOFUNVEU9633-62-24 11:20:00 Test Item Value Reference Range Interpretation Comments Hct (test code = Hct) 29.0 36.0-48.0 [facility] SystemAnfniioGHHTJLXXSM4118-13-25 11:20:00 Test Item Value Reference Range Interpretation Comments MCH (test code = MCH) 31.6 pg 27.0-31.0 [facility] SystemBybplkfXOQHUXVGXM0249-62-60 11:20:00 Test Item Value Reference Range Interpretation Comments MCV (test code = MCV) 92.3 80.0-98.0 [facility] SystemGordfgjQNFVTDGNFI2326-25-94 11:20:00 Test Item Value Reference Range Interpretation Comments RBC (test code = RBC) 3.14 4.20-5.40 [facility] SystemJtvrozbKXUXNBKPWY4650-81-03 11:20:00 Test Item Value Reference Range Interpretation Comments MPV (test code = MPV) 7.1 7.4-10.4 [facility] SystemEurqpdyCEWJAPDWER0972-35-96 11:20:00 Test Item Value Reference Range Interpretation Comments MCHC (test code = MCHC) 34.3 32.0-36.0 [facility] SystemDnlrsidSRWAENVYVP0950-99-54 11:20:00 Test Item Value Reference Range Interpretation Comments Lymphocytes # (test code = Lymphocytes 1.7 1.0-5.5 #) [facility] SystemLmfwawhJTSBLIPGPN5386-46-26 11:20:00 Test Item Value Reference Range Interpretation Comments Monocytes # (test code 0.6 See_Comment [Aut omated message] The = Monocytes #) system which generated this result tra nsmitted reference range : <=0.8. The reference r andreia was not used to int erpret this result as normal/abnormal . [facility] SystemDyovpdgTQDUKQTIRJ0453-01-14 11:20:00 Test Item Value Reference Range Interpretation Comments Basophils # (test code 0.1 See_Comment [Aut omated message] The = Basophils #) system which generated this result tra nsmitted reference range : <=0.2. The reference r andreia was not used to int erpret this result as normal/abnormal . [facility] SystemFmnqobuTJNGIYUGAV6835-21-18 11:20:00 Test Item Value Reference Range Interpretation Comments Eosinophils # (test code 0.7 See_Comment [A utomated message] The = Eosinophils #) system whic h generated this result tra nsmitted reference range : <=0.5. The reference r andreia was not used to int erpret this result as normal/abnormal . [facility] SystemObahqkzIJOLYSNXWA6818-21-89 11:20:00 Test Item Value Reference Range Interpretation Comments Basophils (test code = 0.5 See_Comment [Aut omated message] The Basophils) system which ge nerated this result tra nsmitted reference range : <=1.0. The reference r andreia was not used to int erpret this result as normal/abnormal . [facility] SystemWnfyguxHAUATJKJUW7242-41-92 11:20:00 Test Item Value Reference Range Interpretation Comments Eosinophils (test code = 7.3 See_Comment [A utomated message] The Eosinophils) system which ge nerated this result tra nsmitted reference range : <=4.0. The reference r andreia was not used to int erpret this result as normal/abnormal . [facility] SystemEjszmtlMNTYGCADEZ9183-56-78 11:20:00 Test Item Value Reference Range Interpretation Comments Neutrophils # (test code = Neutrophils 6.8 1.5-8.1 #) [facility] SystemPekairkDKIXBYSFRD8890-90-58 11:20:00 Test Item Value Reference Range Interpretation Comments Monocytes (test code = Monocytes) 5.7 2.0-12.0 [facility] SystemDlsdtczAALFJVIFYR4064-49-23 11:20:00 Test Item Value Reference Range Interpretation Comments Lymphocytes (test code = Lymphocytes) 17.4 20.0-40.0 [facility] SystemHyyjkkyGOLALIJKZO7659-12-03 11:20:00 Test Item Value Reference Range Interpretation Comments Segs (test code = Segs) 69.1 45.0-75.0 [facility]2019-06-14 11:00:00 Test Item Value Reference Range Interpretation Comments Phosphorus (test code = Phosphorus) 2.6 2.5-4.5 [facility]2019-06-14 11:00:00 Test Item Value Reference Range Interpretation Comments Magnesium Lvl (test code = Magnesium 1.8 1.8-2.4 Lvl) [facility] SystemDbgsiheMIZXQBRXHK1316-59-21 11:00:00 Test Item Value Reference Range Interpretation Comments Eosinophils (test code = 8.8 See_Comment [A utomated message] The Eosinophils) system which ge nerated this result tra nsmitted reference range : <=4.0. The reference r andreia was not used to int erpret this result as normal/abnormal . [facility] SystemBmwhtppUFXMMMYEFI4925-53-45 11:00:00 Test Item Value Reference Range Interpretation Comments Segs (test code = Segs) 52.0 45.0-75.0 [facility] SystemJbxgtsqJQJRUXZEHL1771-47-62 11:00:00 Test Item Value Reference Range Interpretation Comments Lymphocytes (test code = Lymphocytes) 29.6 20.0-40.0 [facility] SystemGxpalhzGESVTTUQGN7923-22-60 11:00:00 Test Item Value Reference Range Interpretation Comments Monocytes (test code = Monocytes) 9.3 2.0-12.0 [facility] SystemFdijleoDEXLMEAPPB9637-86-39 11:00:00 Test Item Value Reference Range Interpretation Comments Basophils (test code = 0.3 See_Comment [Aut omated message] The Basophils) system which ge nerated this result tra nsmitted reference range : <=1.0. The reference r andreia was not used to int erpret this result as normal/abnormal . [facility] SystemBzisclfSXJMAVYDDO3147-64-59 11:00:00 Test Item Value Reference Range Interpretation Comments Monocytes # (test code 0.7 See_Comment [Aut omated message] The = Monocytes #) system which generated this result tra nsmitted reference range : <=0.8. The reference r andreia was not used to int erpret this result as normal/abnormal . [facility] SystemVgocmfmQERLLQGDFJ8855-68-85 11:00:00 Test Item Value Reference Range Interpretation Comments Eosinophils # (test code 0.7 See_Comment [A utomated message] The = Eosinophils #) system whic h generated this result tra nsmitted reference range : <=0.5. The reference r andreia was not used to int erpret this result as normal/abnormal . [facility] SystemWqdcwevQCWTDPMFNT5596-45-62 11:00:00 Test Item Value Reference Range Interpretation Comments Neutrophils # (test code = Neutrophils 4.1 1.5-8.1 #) [id number] 11:00:00 Test Item Value Reference Range Interpretation Comments Lymphocytes # (test code = Lymphocytes 2.3 1.0-5.5 #) [facility] [id number] 20:32:00 Test Item Value Reference Range Interpretation Comments Magnesium Lvl (test code = Magnesium 2.0 1.8-2.4 Lvl) [facility] [id number] 20:32:00 Test Item Value Reference Range Interpretation Comments Phosphorus (test code = Phosphorus) 3.1 2.5-4.5 [facility] [id number] 14:13:00 Test Item Value Reference Range Interpretation Comments Gram Stain Report Less Than 25 Squamous (test code = Gram Epithelial Cells/Lpf No Stain Report) Organisms Seen Rare WBC's Good Quality Specimen [facility] Respiratory w/Gram [id number] 14:13:00 Test Item Value Reference Range Interpretation Comments Culture: Respiratory w/Gram Stain Few Yeast (test code = Culture: Respiratory w/Gram Stain) [facility] [id number] 11:05:00 Test Item Value Reference Range Interpretation Comments Troponin-I (test code 1.15 See_Comment [Auto mated message] The = Troponin-I) system which g enerated this result transmit dewayne reference range : <=0.40. The reference r andreia was not used to interpr et this result as dallin l/abnormal. [facility] S[id number] 11:05:00 Test Item Value Reference Range Interpretation Comments Monocytes # (test code 0.7 See_Comment [Aut omated message] The = Monocytes #) system which generated this result tra nsmitted reference range : <=0.8. The reference r andreia was not used to int erpret this result as normal/abnormal . [facility] SystemSiypsnzDLQEWNOCYX6886-20-96 11:05:00 Test Item Value Reference Range Interpretation Comments Lymphocytes # (test code = Lymphocytes 1.6 1.0-5.5 #) [facility] SystemBnmkqniWXUPQBDWGS7145-39-61 11:05:00 Test Item Value Reference Range Interpretation Comments Neutrophils # (test code = Neutrophils 3.9 1.5-8.1 #) [facility] SystemEyypzckDSXGYTVPEY8642-57-72 11:05:00 Test Item Value Reference Range Interpretation Comments Eosinophils # (test code 0.6 See_Comment [A utomated message] The = Eosinophils #) system whic h generated this result tra nsmitted reference range : <=0.5. The reference r andreia was not used to int erpret this result as normal/abnormal . [facility] SystemKorfoqgNCPRLQINKE6843-34-10 11:05:00 Test Item Value Reference Range Interpretation Comments Eosinophils (test code = 8.6 See_Comment [A utomated message] The Eosinophils) system which ge nerated this result tra nsmitted reference range : <=4.0. The reference r andreia was not used to int erpret this result as normal/abnormal . [facility] SystemBlmxtvbVCSGBTGAGY3120-96-39 11:05:00 Test Item Value Reference Range Interpretation Comments Monocytes (test code = Monocytes) 10.5 2.0-12.0 [facility]lyuynwRZTQBJSVDG2649-61-56 11:05:00 Test Item Value Reference Range Interpretation Comments Basophils # (test code 0.1 See_Comment [Aut omated message] The = Basophils #) system which generated this result tra nsmitted reference range : <=0.2. The reference r andreia was not used to int erpret this result as normal/abnormal . [facility] SystemVgheqeqOUFIAKGHDC5239-74-49 11:05:00 Test Item Value Reference Range Interpretation Comments Lymphocytes (test code = Lymphocytes) 23.7 20.0-40.0 [facility] SystemQdihbyrQAUVGHKUXI7176-91-70 11:05:00 Test Item Value Reference Range Interpretation Comments Segs (test code = Segs) 56.4 45.0-75.0 [facility] Syst[id number] 11:05:00 Test Item Value Reference Range Interpretation Comments Basophils (test code = 0.8 See_Comment [Aut omated message] The Basophils) system which ge nerated this result tra nsmitted reference range : <=1.0. The reference r andreia was not used to int erpret this result as normal/abnormal . [facility] [id number] 06:06:00 Test Item Value Reference Range Interpretation Comments Troponin-I (test code 2.18 See_Comment [Auto mated message] The = Troponin-I) system which g enerated this result transmit dewayne reference range : <=0.40. The reference r andreia was not used to interpr et this result as dallin l/abnormal. [facility] [id number] 06:06:00 Test Item Value Reference Range Interpretation Comments Alk Phos (test code = Alk Phos) 197 39-136 [facility]ne[facility] [id number] 06:06:00 Test Item Value Reference Range Interpretation Comments Albumin Lvl (test code = Albumin Lvl) 1.9 3.5-5.0 [facility] [id number] 06:06:00 Test Item Value Reference Range Interpretation Comments AST (test code = AST) 33 See_Comment [Auto mated message] The system which ge nerated this result transmit dewayne reference range : <=37. The reference range was not used to interpr et this result as dallin l/abnormal. [facility] [id number] 06:06:00 Test Item Value Reference Range Interpretation Comments Total Protein (test code = Total 6.0 6.4-8.4 Protein) [facility] [id number] 06:06:00 Test Item Value Reference Range Interpretation Comments ALT (test code = ALT) 18 See_Comment [Auto mated message] The system which ge nerated this result transmit dewayne reference range : <=65. The reference range was not used to interpr et this result as dallin l/abnormal. [facility] [id number] 06:06:00 Test Item Value Reference Range Interpretation Comments A/G Ratio (test code = A/G Ratio) 0.5 1 0.7-1.6 [facility] [id number] 06:06:00 Test Item Value Reference Range Interpretation Comments Globulin (test code = Globulin) 4.1 2.7-4.2 [facility]2019-06-12 06:06:00 Test Item Value Reference Range Interpretation Comments Bili Total (test code = Bili Total) 0.9 0.2-1.3 [facility] [id number] 06:06:00 Test Item Value Reference Range Interpretation Comments B/C Ratio (test code = B/C Ratio) 20 1 6-25 [facility]BngdqnyMQLXGURTHE2675-25-72 03:29:00 Test Item Value Reference Range Interpretation Comments Vanco Tr TND (test code = Vanco Tr 2300 1 TND) [place] [id number] 03:29:00 Test Item Value Reference Range Interpretation Comments Vanco Tr (test code = Vanco Tr) 21.5 [facility]neannMOLECULAR [id number] 14:56:00 Test Item Value Reference Range Interpretation Comments Source Adenovirus PCR [employer] Swab (test code = Source (02/23/19 9:56 AM) Adenovirus PCR) [facility] [id number] 14:56:00 Test Item Value Reference Range Interpretation Comments Adenovirus PCR (test Negative (02/23/19 code = Adenovirus PCR) 9:56 AM) [facility]2019-06-11 14:56:00 Test Item Value Reference Range Interpretation Comments Parainfluenza 3 PCR (test Negative (02/23/19 code = Parainfluenza 3 9:56 AM) PCR) [facility]2019-06-11 14:56:00 Test Item Value Reference Range Interpretation Comments Parainfluenza 2 PCR (test Negative (02/23/19 code = Parainfluenza 2 9:56 AM) PCR) [facility]2019-06-11 14:56:00 Test Item Value Reference Range Interpretation Comments Parainfluenza 1 PCR (test Negative (02/23/19 code = Parainfluenza 1 9:56 AM) PCR) [facility]2019-06-11 14:56:00 Test Item Value Reference Range Interpretation Comments Source Parainfluenza Virus [employer] Swab PCR (test code = Source (02/23/19 9:56 AM) Parainfluenza Virus PCR) [facility]2019-06-11 14:56:00 Test Item Value Reference Range Interpretation Comments Influenza A PCR (test Negative (02/23/19 9:56 code = Influenza A PCR) AM) [facility]2019-06-11 14:56:00 Test Item Value Reference Range Interpretation Comments Influenza B PCR (test Negative (02/23/19 9:56 code = Influenza B PCR) AM) [facility]2019-06-11 14:56:00 Test Item Value Reference Range Interpretation Comments RSV PCR (test code = Negative (02/23/19 9:56 RSV PCR) AM) [facility]2019-06-11 14:56:00 Test Item Value Reference Range Interpretation Comments Source Respiratory Panel [employer] Swab PCR (test code = Source (02/23/19 9:56 AM) Respiratory Panel PCR) [facility] [id number] 08:59:00 Test Item Value Reference Range Interpretation Comments Troponin-I (test code 2.54 See_Comment [Auto mated message] The = Troponin-I) system which g enerated this result transmit dewayne reference range : <=0.40. The reference r andreia was not used to interpr et this result as dallin l/abnormal. [facility]2019-06-11 08:59:00 Test Item Value Reference Range Interpretation Comments Alk Phos (test code = Alk Phos) 231 39-136 [facility]2019-06-11 08:59:00 Test Item Value Reference Range Interpretation Comments Bili Total (test code = Bili Total) 0.8 0.2-1.3 [facility]2019-06-11 08:59:00 Test Item Value Reference Range Interpretation Comments AST (test code = AST) 41 See_Comment [Auto mated message] The system which ge nerated this result transmit dewayne reference range : <=37. The reference range was not used to interpr et this result as dallin l/abnormal. [facility]2019-06-11 08:59:00 Test Item Value Reference Range Interpretation Comments ALT (test code = ALT) 22 See_Comment [Auto mated message] The system which ge nerated this result transmit dewayne reference range : <=65. The reference range was not used to interpr et this result as dallin l/abnormal. [facility]2019-06-11 08:59:00 Test Item Value Reference Range Interpretation Comments Albumin Lvl (test code = Albumin Lvl) 1.9 3.5-5.0 [facility]2019-06-11 08:59:00 Test Item Value Reference Range Interpretation Comments Total Protein (test code = Total 6.0 6.4-8.4 Protein) [facility]2019-06-11 08:59:00 Test Item Value Reference Range Interpretation Comments A/G Ratio (test code = A/G Ratio) 0.5 1 0.7-1.6 [facility]2019-06-11 08:59:00 Test Item Value Reference Range Interpretation Comments Globulin (test code = Globulin) 4.1 2.7-4.2 [facility]2019-06-11 08:59:00 Test Item Value Reference Range Interpretation Comments B/C Ratio (test code = B/C Ratio) 26 1 6-25 [facility] [id number] 08:59:00 Test Item Value Reference Range Interpretation Comments Basophils # (test code 0.1 See_Comment [Aut omated message] The = Basophils #) system which generated this result tra nsmitted reference range : <=0.2. The reference r andreia was not used to int erpret this result as normal/abnormal . [facility] HospitalKlmzqoiNIASKXNKFS6697-28-37 15:43:00 Test Item Value Reference Range Interpretation Comments Vanco Lvl (test code = Vanco Lvl) 21.3 [facility] [id number] 14:45:00 Test Item Value Reference Range Interpretation Comments Gram Stain Report Gram Stain Performed By: (test code = Gram [facility] BL Stain Report) [facility] Respiratory w/Gram [id number] 14:45:00 Test Item Value Reference Range Interpretation Comments Culture: Respiratory Few Yeast Normal w/Gram Stain (test code Respiratory Louise = Culture: Respiratory Isolated w/Gram Stain) [facility]ne[facility] [id number] 09:36:00 Test Item Value Reference Range Interpretation Comments AST (test code = AST) 59 See_Comment [Auto mated message] The system which ge nerated this result transmit dewayne reference range : <=37. The reference range was not used to interpr et this result as dallin l/abnormal. [facility] [employer] [id number] 09:36:00 Test Item Value Reference Range Interpretation Comments Alk Phos (test code = Alk Phos) 284 39-136 [facility] [employer] [id number] 09:36:00 Test Item Value Reference Range Interpretation Comments Albumin Lvl (test code = Albumin Lvl) 1.8 3.5-5.0 [facility] [employer] [id number] 09:36:00 Test Item Value Reference Range Interpretation Comments ALT (test code = ALT) 29 See_Comment [Auto mated message] The system which ge nerated this result transmit dewayne reference range : <=65. The reference range was not used to interpr et this result as dallin l/abnormal. [facility] [employer] [id number] 09:36:00 Test Item Value Reference Range Interpretation Comments Total Protein (test code = Total 6.1 6.4-8.4 Protein) [facility] [employer] [id number] 09:36:00 Test Item Value Reference Range Interpretation Comments B/C Ratio (test code = B/C Ratio) 31 1 6-25 [facility] HermannCHEM [id number] 09:36:00 Test Item Value Reference Range Interpretation Comments Bili Total (test code = Bili Total) 0.9 0.2-1.3 [facility]neannCHEM [id number] 09:36:00 Test Item Value Reference Range Interpretation Comments A/G Ratio (test code = A/G Ratio) 0.4 1 0.7-1.6 [facility]neannCHEM [id number] 09:36:00 Test Item Value Reference Range Interpretation Comments Globulin (test code = Globulin) 4.3 2.7-4.2 [facility] C[id number] 01:23:00 Test Item Value Reference Range Interpretation Comments Vanco Tr TND (test code = Vanco Tr 2100 1 TND) [facility] [id number] 01:23:00 Test Item Value Reference Range Interpretation Comments Vanco Tr (test code = Vanco Tr) 36.8 [facility] PrycfdxHQRPRDJHBS8373-21-23 07:26:00 Test Item Value Reference Range Interpretation Comments PTT (test code = PTT) 59.6 s 22.9-35.8 [facility] HermannBACTERIAL - [id number] 04:31:00 Test Item Value Reference Range Interpretation Comments MRSA by PCR (test Positive 2*ABN*(02/20/19 code = MRSA by PCR) 11:31 PM) [facility]neannCARDIAC [id number] 04:31:00 Test Item Value Reference Range Interpretation Comments BNP (test code = BNP) 632 [facility] CleburneannAMIKACIN:SUSC:PT:ISOLATE:ORDQN:[id number] 01:17:00 Test Item Value Reference Range Interpretation Comments Escherichia coli (test code Escherichia coli = Escherichia coli) [facility] Cle[facility]neannBACTERIAL - [id number] 01:17:00 Test Item Value Reference Range Interpretation Comments Strep pneumoniae Ag Negative (02/20/19 8:17 (test code = Strep PM) pneumoniae Ag) [facility] Cle[facility]neannBACTERIAL - [id number] 01:17:00 Test Item Value Reference Range Interpretation Comments Source Strep (test code Urine (02/20/19 8:17 PM) = Source Strep) [facility] Cle[facility]neannURINE AND [id number] 01:17:00 Test Item Value Reference Range Interpretation Comments UA Sq Epi (test code = UA Sq Epi) None Seen [facility] [employer] AND [id number] 01:17:00 Test Item Value Reference Range Interpretation Comments UA Nitrite (test code Negative (02/20/19 8:17 = UA Nitrite) PM) [facility] AND [id number] 01:17:00 Test Item Value Reference Range Interpretation Comments UA Leuk Est (test Moderate *ABN*(02/20/19 code = UA Leuk Est) 8:17 PM) [facility] [employer] [facility] AND [id number] 01:17:00 Test Item Value Reference Range Interpretation Comments UA WBC (test code = no gt See_Comment [Automa dewayne message] The UA WBC) system which ge nerated this result transmit dewayne reference range : <=5. The reference range was not used to interpr et this result as dallin l/abnormal. [facility] AND [id number] 01:17:00 Test Item Value Reference Range Interpretation Comments UA RBC (test code = 4 See_Comment [Automa dewayne message] The UA RBC) system which ge nerated this result transmit dewayne reference range : <=2. The reference range was not used to interpr et this result as dallin l/abnormal. [facility] AND [id number] 01:17:00 Test Item Value Reference Range Interpretation Comments UA Bacteria (test code = UA Many /HPF Bacteria) [facility] AND [id number] 01:17:00 Test Item Value Reference Range Interpretation Comments UA Spec Grav (test code = UA Spec 1.014 1 Grav) [facility] AND [id number] 01:17:00 Test Item Value Reference Range Interpretation Comments UA Turbidity (test code Marked *ABN*(02/20/19 = UA Turbidity) 8:17 PM) [facility] AND [id number] 01:17:00 Test Item Value Reference Range Interpretation Comments UA Color (test code = Yellow *NA*(02/20/19 8:17 UA Color) PM) [facility] AND [id number] 01:17:00 Test Item Value Reference Range Interpretation Comments UA Bili (test code = Negative *NA*(02/20/19 UA Bili) 8:17 PM) [facility] AND [id number] 01:17:00 Test Item Value Reference Range Interpretation Comments UA Protein (test code = UA Protein) 100 mg/dL [facility] AND [id number] 01:17:00 Test Item Value Reference Range Interpretation Comments UA Glucose (test code = UA Negative mg/dL Glucose) [facility] AND [id number] 01:17:00 Test Item Value Reference Range Interpretation Comments UA pH (test code = UA pH) 5.0 1 5.0-8.0 [facility] AND [id number] 01:17:00 Test Item Value Reference Range Interpretation Comments UA Ketones (test code = UA Trace mg/dL Ketones) [facility] AND [id number] 01:17:00 Test Item Value Reference Range Interpretation Comments UA Blood (test code = Small *ABN*(02/20/19 UA Blood) 8:17 PM) [facility] AND [id number] 01:17:00 Test Item Value Reference Range Interpretation Comments UA Urobilinogen (test code = UA 2.0 0.1-1.0 Urobilinogen) [facility]:PT:ISOLATE:ORDQN:[id number] 01:17:00 Test Item Value Reference Range Interpretation Comments Culture: Urine (test 50,000 - 100,000 CFU/mL code = Culture: Escherichia coli , This Urine) Organism Produces An Extended Spectrum Beta Lactamase (ESBL). >100,000 CFU/mL Skin Louise [facility] [id number] 00:42:00 Test Item Value Reference Range Interpretation Comments Procalcitonin Lvl (test 4.06 See_Comment [Au tomated message] code = Procalcitonin Lvl) Th e system which generated this result transmitted ref erence range: <=0.10. The reference range was not used to interpr et this result as normal/abnormal . [facility] [id number] 00:42:00 Test Item Value Reference Range Interpretation Comments Lactic Acid Lvl (test code = Lactic 2.0 0.5-2.2 Acid Lvl) [facility] [id number] 00:42:00 Test Item Value Reference Range Interpretation Comments Anisocyte (test code = 1+ *ABN*(02/20/19 7:42 Anisocyte) PM) [facility] [id number] 00:42:00 Test Item Value Reference Range Interpretation Comments Plt Morph (test code = Normal (02/20/19 7:42 PM) Plt Morph) [facility] SystemWwizwilYJSCQAOXVT5046-76-85 00:42:00 Test Item Value Reference Range Interpretation Comments Macrocyte (test code = 1+ *ABN*(02/20/19 7:42 Macrocyte) PM) [facility] SystemVckwibbFNIOVWJVDG1873-00-46 00:42:00 Test Item Value Reference Range Interpretation Comments Polychrom (test code = Polychrom) Slight [facility] Syst[id number] 00:42:00 Test Item Value Reference Range Interpretation Comments Bands (test code = 1.0 See_Comment [Automat ed message] The Bands) system which ge nerated this result transmit dewayne reference range : <=11.0. The reference r andreia was not used to interpr et this result as dallin l/abnormal. [facility] SystemIddutqyYWFGXIECIE9429-67-75 00:42:00 Test Item Value Reference Range Interpretation Comments Atypical Lymphs (test code = Atypical 0.0 Lymphs) [facility] SystemLjqtfbyDKGZZUAHCF1257-57-20 00:42:00 Test Item Value Reference Range Interpretation Comments RBC Morph (test code = See Note (02/20/19 7:42 RBC Morph) PM) [facility] SystemElbpgzmUAHKNEDOUM1623-95-42 00:42:00 Test Item Value Reference Range Interpretation Comments PTT (test code = PTT) 47.9 s 22.9-35.8 [facility] W/AUTO [id number] 13:07:00 Test Item Value Reference Range Interpretation [...] = NO DIFF/SCN CRITERIA MDIFF) BASIC METABOLIC [id number] 12:31:00 Test Item Value Reference Range Interpretation [...] code = CA) 8.5 MG/DL 8.5-10.1 N [id number] 07:17:42 Test Item Value Reference Range Interpretation Comments INR (test code = INR) 1.74 0.85-1.17 [facility]UyxhbswGDVSWWBOHP1632-04-57 07:17:42 Test Item Value Reference Range Interpretation Comments PROTIME (test code = PROTIME) 20.1 s 12.0-14.7 H [facility] GLUCOSE [id number] 03:08:00 Test Item Value Reference Range Interpretation Comments Glucose POC (test code = Glucose POC) 181 70-99 H [facility] GLUCOSE [id number] 03:08:00 Test Item Value Reference Range Interpretation Comments Gluc POC Comment 1 (test code Notified RN/MD = Gluc POC Comment 1) [facility] GLUCOSE [id number] 23:44:00 Test Item Value Reference Range Interpretation Comments Glucose POC (test code = Glucose POC) 85 70-99 N [facility] GLUCOSE [id number] 17:36:00 Test Item Value Reference Range Interpretation Comments Gluc POC Comment 1 (test code Notified RN/MD = Gluc POC Comment 1) [facility] GLUCOSE [id number] 17:36:00 Test Item Value Reference Range Interpretation Comments Glucose POC (test code = Glucose POC) 120 70-99 H [facility] GLUCOSE [id number] 11:53:00 Test Item Value Reference Range Interpretation Comments Gluc POC Comment 1 (test code Notified RN/MD = Gluc POC Comment 1) [facility] [id number] 09:59:00 Test Item Value Reference Range Interpretation Comments AGAP (test code = AGAP) 13.3 10.0-20.0 N [facility] AustinHkslawnNYECGWFCP9102-30-46 09:59:00 Test Item Value Reference Range Interpretation Comments Glucose Lvl (test code = Glucose Lvl) 119 70-99 H [facility] AustinKznuslsSUXVSPHRP9424-56-11 09:59:00 Test Item Value Reference Range Interpretation Comments Chloride Lvl (test code = Chloride Lvl) 107 95-109 N [facility] AustinRglybwcTKFWJTEJH7745-98-24 09:59:00 Test Item Value Reference Range Interpretation Comments Potassium Lvl (test code = Potassium 4.3 3.5-5.1 N Lvl) [facility] AustinKzjvlwiDCCDHHHES6266-25-47 09:59:00 Test Item Value Reference Range Interpretation Comments BUN (test code = BUN) 26 7-22 H [facility] AustinYnegmasEVYSXBAQH7233-67-85 09:59:00 Test Item Value Reference Range Interpretation Comments Sodium Lvl (test code = Sodium Lvl) 141 135-145 N [facility] AustinLsecmfkHXXULAQCM1540-96-16 09:59:00 Test Item Value Reference Range Interpretation Comments Creatinine Lvl (test code = Creatinine 1.2 0.5-1.4 N Lvl) [facility] AustinQbxokpeVUHYQBJWS9403-85-15 09:59:00 Test Item Value Reference Range Interpretation Comments Calcium Lvl (test code = Calcium Lvl) 8.2 8.5-10.5 L [facility] AustinAdwnhfyQUKHCMZQP9199-77-39 09:59:00 Test Item Value Reference Range Interpretation Comments CO2 (test code = CO2) 25 24-32 N [facility] AustinYtswoshWEUHRIPVO9067-55-78 09:59:00 Test Item Value Reference Range Interpretation Comments eGFR (test code = eGFR) 43 [facility]XnnqiybJPPHLJRPXB2340-91-58 09:59:00 Test Item Value Reference Range Interpretation Comments INR (test code = INR) 2.04 0.85-1.17 H [facility] SystemUwvegvfZKCVPYSMTA0904-59-96 09:59:00 Test Item Value Reference Range Interpretation Comments PROTIME (test code = PROTIME) 22.7 s 12.0-14.7 H [facility] SystemYikmbphQRYGOCLPPC9992-78-06 09:59:00 Test Item Value Reference Range Interpretation Comments Basophils # (test code 0.1 See_Comment N [Aut omated message] The = Basophils #) system which generated this result tra nsmitted reference range : <=0.2. The reference r andreia was not used to int erpret this result as normal/abnormal . [facility] SystemPfpamdoYRNZTBMDNI2264-14-09 09:59:00 Test Item Value Reference Range Interpretation Comments Eosinophils # (test code 0.4 See_Comment N [A utomated message] The = Eosinophils #) system whic h generated this result tra nsmitted reference range : <=0.5. The reference r andreia was not used to int erpret this result as normal/abnormal . [facility] SystemCderotfSZPXJYFGIX6146-01-89 09:59:00 Test Item Value Reference Range Interpretation Comments Monocytes # (test code 0.7 See_Comment N [Aut omated message] The = Monocytes #) system which generated this result tra nsmitted reference range : <=0.8. The reference r andreia was not used to int erpret this result as normal/abnormal . [facility] SystemWwuuajdQQBZBAOTMI5246-42-36 09:59:00 Test Item Value Reference Range Interpretation Comments Lymphocytes # (test code = Lymphocytes 2.7 1.0-5.5 N #) [facility] SystemYqywfcfKIBCUYQAJQ5395-80-29 09:59:00 Test Item Value Reference Range Interpretation Comments Segs-Bands # (test code = Segs-Bands #) 4.7 1.5-8.1 N [facility] SystemLqauenpRUQHJLMCPH2181-14-94 09:59:00 Test Item Value Reference Range Interpretation Comments Basophils (test code = 0.8 See_Comment N [Aut omated message] The Basophils) system which ge nerated this result tra nsmitted reference range : <=1.0. The reference r andreia was not used to int erpret this result as normal/abnormal . [facility] SystemNtfcozpBGEMZFNOUA8857-82-67 09:59:00 Test Item Value Reference Range Interpretation Comments Eosinophils (test code = 5.1 See_Comment H [A utomated message] The Eosinophils) system which ge nerated this result tra nsmitted reference range : <=4.0. The reference r andreia was not used to int erpret this result as normal/abnormal . [facility] SystemFsmvzuqNRXYSUYYQT0169-81-83 09:59:00 Test Item Value Reference Range Interpretation Comments Lymphocytes (test code = Lymphocytes) 31.8 20.0-40.0 N [facility] SystemKqezoebXVNPRTDMHQ7245-27-04 09:59:00 Test Item Value Reference Range Interpretation Comments Segs (test code = Segs) 54.5 45.0-75.0 N [facility] SystemScvtrfmPQBEGJLXGS6471-08-16 09:59:00 Test Item Value Reference Range Interpretation Comments Monocytes (test code = Monocytes) 7.8 2.0-12.0 N [facility] SystemNsxoklqJZSAIDXIMD0282-33-51 09:59:00 Test Item Value Reference Range Interpretation Comments WBC X 10x3 (test code = WBC X 10x3) 8.7 3.7-10.4 N [facility] SystemEgyeihrZRXTHZJXDN9963-50-72 09:59:00 Test Item Value Reference Range Interpretation Comments MCHC (test code = MCHC) 33.1 32.0-36.0 N [facility] SystemMquldphLQADEAQVAU0247-77-13 09:59:00 Test Item Value Reference Range Interpretation Comments RBC X 10x6 (test code = RBC X 10x6) 2.83 4.20-5.40 L [facility] SystemRsgskjaMSAIVBQQRQ0459-83-45 09:59:00 Test Item Value Reference Range Interpretation Comments Platelet (test code = Platelet) 544 133-450 H [facility] SystemFsnbmtaTGDHCOHQUA2196-13-67 09:59:00 Test Item Value Reference Range Interpretation Comments MPV (test code = MPV) 6.7 7.4-10.4 L [facility] SystemCwprabvOFMJLSMUHH2114-34-34 09:59:00 Test Item Value Reference Range Interpretation Comments RDW (test code = RDW) 14.4 11.5-14.5 N [facility] SystemEcwznrpZJWKMDPFDT2146-01-87 09:59:00 Test Item Value Reference Range Interpretation Comments Hgb (test code = Hgb) 8.5 12.0-16.0 L [facility] SystemOjawghpBMIPWTLSXR6255-15-85 09:59:00 Test Item Value Reference Range Interpretation Comments MCH (test code = MCH) 30.2 pg 27.0-31.0 N [facility] SystemUlsqopkCXWYIKOKSX2519-16-68 09:59:00 Test Item Value Reference Range Interpretation Comments Hct (test code = Hct) 25.8 36.0-48.0 L [facility] SystemQzxlwylWPBITEACME8293-73-81 09:59:00 Test Item Value Reference Range Interpretation Comments MCV (test code = MCV) 91.2 81.0-99.0 N [facility] SystemIewkmmhHMUJGHCMBB9410-16-06 09:07:45 Test Item Value Reference Range Interpretation Comments INR (test code = INR) 2.60 0.85-1.17 H [facility] SystemZoqdxsaCYMBOAJEPO9392-01-95 09:07:45 Test Item Value Reference Range Interpretation Comments PROTIME (test code = PROTIME) 27.3 s 12.0-14.7 H [facility] AustinZwicbdgMTTWQRGZZ2590-20-83 10:57:00 Test Item Value Reference Range Interpretation Comments AGAP (test code = AGAP) 12.6 10.0-20.0 N [facility] AustinSxuycfuYXMYPWLJI9467-40-45 10:57:00 Test Item Value Reference Range Interpretation Comments eGFR (test code = eGFR) 61 [facility] AustinTxczmoeSRHJDBXAU9263-04-16 10:57:00 Test Item Value Reference Range Interpretation Comments Calcium Lvl (test code = Calcium Lvl) 8.5 8.5-10.5 N [facility] AustinFwtyeavKFUXIFZOQ9258-88-69 10:57:00 Test Item Value Reference Range Interpretation Comments CO2 (test code = CO2) 28 24-32 N [facility] AustinEzvyefyTHYCEYDRM4957-72-77 10:57:00 Test Item Value Reference Range Interpretation Comments Chloride Lvl (test code = Chloride Lvl) 102 95-109 N [facility] AustinLfzrzjmUPQBZQCET0068-79-66 10:57:00 Test Item Value Reference Range Interpretation Comments Potassium Lvl (test code = Potassium 3.6 3.5-5.1 N Lvl) [facility] AustinUehqnucSQNUUOCSL0249-28-72 10:57:00 Test Item Value Reference Range Interpretation Comments BUN (test code = BUN) 19 7-22 N [facility] AustinVbiqzbpWHBQGMHGR9815-82-80 10:57:00 Test Item Value Reference Range Interpretation Comments Glucose Lvl (test code = Glucose Lvl) 114 70-99 H [facility] AustinQoqpkeyRWNNGZWHT6109-51-14 10:57:00 Test Item Value Reference Range Interpretation Comments Sodium Lvl (test code = Sodium Lvl) 139 135-145 N [facility] AustinPtufszjYBEKNQIGB5171-54-60 10:57:00 Test Item Value Reference Range Interpretation Comments Creatinine Lvl (test code = Creatinine 0.9 0.5-1.4 N Lvl) [facility] SystemXdfctinKHJARVZIYG7764-86-87 10:57:00 Test Item Value Reference Range Interpretation Comments Hct (test code = Hct) 26.1 36.0-48.0 L [facility] SystemZtsftysDBHWGFQPME3728-78-46 10:57:00 Test Item Value Reference Range Interpretation Comments WBC X 10x3 (test code = WBC X 10x3) 8.8 3.7-10.4 N [facility] SystemFcjzuyoMTXCQNGWQL4090-82-42 10:57:00 Test Item Value Reference Range Interpretation Comments MCHC (test code = MCHC) 32.6 32.0-36.0 N [facility] SystemYyoyxrmDRAPLCMQRL6309-58-18 10:57:00 Test Item Value Reference Range Interpretation Comments RDW (test code = RDW) 14.5 11.5-14.5 N [facility] SystemCnyftweXKVCKRZMSD8493-19-99 10:57:00 Test Item Value Reference Range Interpretation Comments MCH (test code = MCH) 29.8 pg 27.0-31.0 N [facility] SystemSblahjkDTOIOLNJAT4894-04-38 10:57:00 Test Item Value Reference Range Interpretation Comments MCV (test code = MCV) 91.6 81.0-99.0 N [facility] SystemNcmdtalVHCXDJFBJP1823-62-49 10:57:00 Test Item Value Reference Range Interpretation Comments Hgb (test code = Hgb) 8.5 12.0-16.0 L [facility] SystemFrjwwvwMPWDAZSSIX6409-89-63 10:57:00 Test Item Value Reference Range Interpretation Comments RBC X 10x6 (test code = RBC X 10x6) 2.85 4.20-5.40 L [facility] SystemPqtpyozLHFGBHMQAQ5397-99-20 10:57:00 Test Item Value Reference Range Interpretation Comments Platelet (test code = Platelet) 423 133-450 N [facility] SystemRwbzezzGRDLBQADXT1915-41-39 10:57:00 Test Item Value Reference Range Interpretation Comments MPV (test code = MPV) 7.3 7.4-10.4 L [facility] SystemZyzzttoSBBJPGKHMM2727-98-72 10:57:00 Test Item Value Reference Range Interpretation Comments Monocytes (test code = Monocytes) 8.5 2.0-12.0 N [facility] SystemXvgqiwwLVMAXZVHTS7761-47-48 10:57:00 Test Item Value Reference Range Interpretation Comments Eosinophils (test code = 4.9 See_Comment H [A utomated message] The Eosinophils) system which ge nerated this result tra nsmitted reference range : <=4.0. The reference r andreia was not used to int erpret this result as normal/abnormal . [facility] SystemZfrpjxcIOLRXPTJAE1990-10-62 10:57:00 Test Item Value Reference Range Interpretation Comments Lymphocytes (test code = Lymphocytes) 29.9 20.0-40.0 N [facility] SystemVfyvrxmUONJOVMNZR3649-07-55 10:57:00 Test Item Value Reference Range Interpretation Comments Eosinophils # (test code 0.4 See_Comment N [A utomated message] The = Eosinophils #) system whic h generated this result tra nsmitted reference range : <=0.5. The reference r andreia was not used to int erpret this result as normal/abnormal . [facility] SystemAzdtdmnGNPCCFURXN5568-42-79 10:57:00 Test Item Value Reference Range Interpretation Comments Basophils # (test code 0.1 See_Comment N [Aut omated message] The = Basophils #) system which generated this result tra nsmitted reference range : <=0.2. The reference r andreia was not used to int erpret this result as normal/abnormal . [facility] SystemZgwnkrqIUYOMYZOFU9048-90-73 10:57:00 Test Item Value Reference Range Interpretation Comments Basophils (test code = 1.1 See_Comment H [Aut omated message] The Basophils) system which ge nerated this result tra nsmitted reference range : <=1.0. The reference r andreia was not used to int erpret this result as normal/abnormal . [facility] SystemOxtyxeaBBQSTAOCJM7837-45-09 10:57:00 Test Item Value Reference Range Interpretation Comments Segs-Bands # (test code = Segs-Bands #) 4.9 1.5-8.1 N [facility] SystemQpofuneEZHSGLTHWB3924-51-43 10:57:00 Test Item Value Reference Range Interpretation Comments Segs (test code = Segs) 55.6 45.0-75.0 N [facility] SystemFokmbuwEIKJTFSYTS5753-32-41 10:57:00 Test Item Value Reference Range Interpretation Comments Monocytes # (test code 0.7 See_Comment N [Aut omated message] The = Monocytes #) system which generated this result tra nsmitted reference range : <=0.8. The reference r andreia was not used to int erpret this result as normal/abnormal . [facility] SystemYorqilmYDHRYFDPQG2677-19-97 10:57:00 Test Item Value Reference Range Interpretation Comments Lymphocytes # (test code = Lymphocytes 2.6 1.0-5.5 N #) [facility] AustinFytmmtiRSYYPCXYP0130-03-08 07:33:00 Test Item Value Reference Range Interpretation Comments eGFR (test code = eGFR) 48 [facility] AustinLfsigdmOLOTYAIGC3123-34-66 07:33:00 Test Item Value Reference Range Interpretation Comments Chloride Lvl (test code = Chloride Lvl) 97 95-109 N [facility] AustinGrlpeivLILRFKRGH8393-83-19 07:33:00 Test Item Value Reference Range Interpretation Comments Potassium Lvl (test code = Potassium 3.6 3.5-5.1 N Lvl) [facility] AustinTdgsrcvIKYKKLMQR9406-79-94 07:33:00 Test Item Value Reference Range Interpretation Comments CO2 (test code = CO2) 27 24-32 N [facility] AustinFuzqayyUTVAWPTBO2462-19-28 07:33:00 Test Item Value Reference Range Interpretation Comments Calcium Lvl (test code = Calcium Lvl) 8.1 8.5-10.5 L [facility] AustinJrgcssiZINANOXGG3645-00-51 07:33:00 Test Item Value Reference Range Interpretation Comments Glucose Lvl (test code = Glucose Lvl) 130 70-99 H [facility] AustinOiadwgbBJRWXWSQM8599-43-86 07:33:00 Test Item Value Reference Range Interpretation Comments BUN (test code = BUN) 22 7-22 N [facility] AustinKhxwgvlWVAUCVEDS4102-42-97 07:33:00 Test Item Value Reference Range Interpretation Comments Sodium Lvl (test code = Sodium Lvl) 136 135-145 N [facility] AustinAjatnytEUTHEGGGV1270-19-06 07:33:00 Test Item Value Reference Range Interpretation Comments Creatinine Lvl (test code = Creatinine 1.1 0.5-1.4 N Lvl) [facility] AustinNdsqadnEZNASBPRN4788-33-05 07:33:00 Test Item Value Reference Range Interpretation Comments AGAP (test code = AGAP) 15.6 10.0-20.0 N [facility] SystemUparuntNIGGRDSPRH5062-15-89 07:33:00 Test Item Value Reference Range Interpretation Comments Basophils # (test code 0.1 See_Comment N [Aut omated message] The = Basophils #) system which generated this result tra nsmitted reference range : <=0.2. The reference r andreia was not used to int erpret this result as normal/abnormal . [facility] SystemKevhdfmQPWNRJJIOV5291-91-49 07:33:00 Test Item Value Reference Range Interpretation Comments Eosinophils # (test code 0.3 See_Comment N [A utomated message] The = Eosinophils #) system whic h generated this result tra nsmitted reference range : <=0.5. The reference r andreia was not used to int erpret this result as normal/abnormal . [facility] SystemBbyxnahSRMIPEDIKE2691-19-91 07:33:00 Test Item Value Reference Range Interpretation Comments Monocytes # (test code 0.9 See_Comment H [Aut omated message] The = Monocytes #) system which generated this result tra nsmitted reference range : <=0.8. The reference r andreia was not used to int erpret this result as normal/abnormal . [facility] SystemGrgtnjwSFMYZVGWLV3340-82-25 07:33:00 Test Item Value Reference Range Interpretation Comments Monocytes (test code = Monocytes) 10.3 2.0-12.0 N [facility] SystemEuidhhjHDBAQCKNOJ8026-95-55 07:33:00 Test Item Value Reference Range Interpretation Comments Lymphocytes (test code = Lymphocytes) 24.6 20.0-40.0 N [facility] SystemTmtwpajUWWCMFWHCI5338-67-42 07:33:00 Test Item Value Reference Range Interpretation Comments Segs (test code = Segs) 61.0 45.0-75.0 N [facility] SystemJdsmaobCMOLBYTDMM2365-40-30 07:33:00 Test Item Value Reference Range Interpretation Comments Lymphocytes # (test code = Lymphocytes 2.1 1.0-5.5 N #) [facility] SystemZezycgjMJRVMKXCIM0791-90-23 07:33:00 Test Item Value Reference Range Interpretation Comments Basophils (test code = 1.0 See_Comment N [Aut omated message] The Basophils) system which ge nerated this result tra nsmitted reference range : <=1.0. The reference r andreia was not used to int erpret this result as normal/abnormal . [facility] SystemVpdqfqeFGRVDVZVGW5965-59-12 07:33:00 Test Item Value Reference Range Interpretation Comments Eosinophils (test code = 3.1 See_Comment N [A utomated message] The Eosinophils) system which ge nerated this result tra nsmitted reference range : <=4.0. The reference r andreia was not used to int erpret this result as normal/abnormal . [facility] SystemRciabxsHUDDQMEVDJ3154-07-70 07:33:00 Test Item Value Reference Range Interpretation Comments Segs-Bands # (test code = Segs-Bands #) 5.1 1.5-8.1 N [facility] SystemKjxtzuqXVIHJOJTID2237-91-44 07:33:00 Test Item Value Reference Range Interpretation Comments MPV (test code = MPV) 7.1 7.4-10.4 L [facility] SystemUnrliloQNOLCJPLBP6428-33-65 07:33:00 Test Item Value Reference Range Interpretation Comments Platelet (test code = Platelet) 285 133-450 N [facility] SystemYxzdwnkLKRBVIXJEQ0283-39-65 07:33:00 Test Item Value Reference Range Interpretation Comments RDW (test code = RDW) 14.1 11.5-14.5 N [facility] SystemEpirftsUZVGRRANNM2387-70-30 07:33:00 Test Item Value Reference Range Interpretation Comments Hgb (test code = Hgb) 8.1 12.0-16.0 L [facility] SystemFskqetmBGZCICQPMF5330-36-85 07:33:00 Test Item Value Reference Range Interpretation Comments RBC X 10x6 (test code = RBC X 10x6) 2.65 4.20-5.40 L [facility] SystemOwgaqfxCOOTXHDAXJ9557-23-28 07:33:00 Test Item Value Reference Range Interpretation Comments WBC X 10x3 (test code = WBC X 10x3) 8.4 3.7-10.4 N [facility] SystemFwvhlepPRNJTBCPMX8774-21-05 07:33:00 Test Item Value Reference Range Interpretation Comments MCH (test code = MCH) 30.6 pg 27.0-31.0 N [facility] SystemZwsmgwmZSACAOABHV8624-80-54 07:33:00 Test Item Value Reference Range Interpretation Comments Hct (test code = Hct) 24.2 36.0-48.0 L [facility] SystemYufzgpkMAKJPQJFRI6429-05-99 07:33:00 Test Item Value Reference Range Interpretation Comments MCHC (test code = MCHC) 33.4 32.0-36.0 N [facility] SystemBdlpxkhTBPKLEJJSA3631-80-10 07:33:00 Test Item Value Reference Range Interpretation Comments MCV (test code = MCV) 91.5 81.0-99.0 N [facility] AustinLzprsmvYYBYGSNQM4831-06-72 19:35:00 Test Item Value Reference Range Interpretation Comments Magnesium Lvl (test code = Magnesium 1.8 1.8-2.4 N Lvl) [facility] SystemNkwbwwbVGMMANHJKK3389-56-31 14:49:00 Test Item Value Reference Range Interpretation Comments aPTT (test code = aPTT) 27.0 s 22.9-35.8 N [facility] AustinBiqtjxwHFOJLDBYV5892-90-47 19:51:00 Test Item Value Reference Range Interpretation Comments POC A Glu (test code = POC A Glu) 129 70-99 H [facility] AustinDflkepkIONWMUNCF9259-10-46 19:51:00 Test Item Value Reference Range Interpretation Comments POC A LA (test code = POC A LA) 0.6 0.5-2.2 N [facility] AustinDymvgneFEZHDNCPM5582-96-96 19:51:00 Test Item Value Reference Range Interpretation Comments POC A Ca Ion (test code = POC A Ca Ion) 1.14 1.05-1.25 N [facility] AustinFlzosvqDOZMGBDXD6602-36-55 19:51:00 Test Item Value Reference Range Interpretation Comments POC A O2 Sat (test code = POC A O2 Sat) 100.0 95.0-100.0 N [facility] AustinMlhbzydBEHFNDUON9518-39-14 19:51:00 Test Item Value Reference Range Interpretation Comments POC A K (test code = POC A K) 3.2 3.5-5.1 L [facility] AustinPqojvdeHRJZPIVBD6940-08-33 19:51:00 Test Item Value Reference Range Interpretation Comments POC A Na (test code = POC A Na) 138 135-145 N [facility] AustinAckktiwUGSSIYYIL9252-56-56 19:51:00 Test Item Value Reference Range Interpretation Comments POC A Hct (test code = POC A Hct) 26.0 36.0-48.0 L [facility] AustinVbsicjcDPCTMKWAO5411-41-85 19:51:00 Test Item Value Reference Range Interpretation Comments POC A BE (test code = 4 See_Comment H [Auto mated message] The POC A BE) system which ge nerated this result transmit dewayne reference range : <=2. The reference range was not used to interpr et this result as dallin l/abnormal. [facility] AustinTglmtazKDFYUKQOZ8106-55-53 19:51:00 Test Item Value Reference Range Interpretation Comments POC A HCO3 (test code = POC A HCO3) 30 22-26 H [facility] AustinKolicgfEBOYFQGLY1917-64-48 19:51:00 Test Item Value Reference Range Interpretation Comments POC A PCO2 (test code = POC A PCO2) 53 35-45 H [facility] AustinMfvggafTEVFLPRCN3988-47-33 19:51:00 Test Item Value Reference Range Interpretation Comments POC A PO2 (test code = POC A PO2) 188 80-100 H [facility] AustinDqtqtdwLNZQMCYIP4179-09-48 19:51:00 Test Item Value Reference Range Interpretation Comments POC A Source (test code = POC A Source) ART [facility] AustinApejklsVOQNPBMTW6593-05-99 19:51:00 Test Item Value Reference Range Interpretation Comments POC A pH (test code = POC A pH) 7.36 7.35-7.45 N [facility] AustinJqtxjtkDLDYUWMLV8224-35-63 19:51:00 Test Item Value Reference Range Interpretation Comments POC A Temp (test code = POC A Temp) 37.0 [facility] AustinMkjdlnlBYESKYYHY5479-69-02 18:51:00 Test Item Value Reference Range Interpretation Comments POC A Hct (test code = POC A Hct) 27.0 36.0-48.0 L [facility] AustinHwcwirnYIXLCBVXA4889-74-76 18:51:00 Test Item Value Reference Range Interpretation Comments POC A O2 Sat (test code = POC A O2 Sat) 100.0 95.0-100.0 N [facility] AustinJxxzscaUVGGCSIHN1277-57-18 18:51:00 Test Item Value Reference Range Interpretation Comments POC A BE (test code = 5 See_Comment H [Auto mated message] The POC A BE) system which ge nerated this result transmit dewayne reference range : <=2. The reference range was not used to interpr et this result as dallin l/abnormal. [facility] AustinNycgeueUTYYOJKXC6991-51-23 18:51:00 Test Item Value Reference Range Interpretation Comments POC A HCO3 (test code = POC A HCO3) 28 22-26 H [facility] AustinIqufmwoFLWQRUUPJ5237-08-73 18:51:00 Test Item Value Reference Range Interpretation Comments POC A Glu (test code = POC A Glu) 132 70-99 H [facility] AustinSwjjazhUNNAXEXQM3045-52-01 18:51:00 Test Item Value Reference Range Interpretation Comments POC A PCO2 (test code = POC A PCO2) 36 35-45 N [facility] AustinAgcflwuHOBXBCDLE8470-60-36 18:51:00 Test Item Value Reference Range Interpretation Comments POC A K (test code = POC A K) 3.3 3.5-5.1 L [facility] AustinXmrsgfbJZUTYGBGW5887-54-41 18:51:00 Test Item Value Reference Range Interpretation Comments POC A Temp (test code = POC A Temp) 37.0 [facility] AustinCgzeywlPNJNEUIJN4056-99-03 18:51:00 Test Item Value Reference Range Interpretation Comments POC A Na (test code = POC A Na) 135 135-145 N [facility] AustinBqygbvaEWCQHVMAY4591-24-85 18:51:00 Test Item Value Reference Range Interpretation Comments POC A pH (test code = POC A pH) 7.50 7.35-7.45 H [facility] AustinStydgniUKTALNJMP8381-17-74 18:51:00 Test Item Value Reference Range Interpretation Comments POC A PO2 (test code = POC A PO2) 164 80-100 H [facility] AustinEumktrxJQQPYTJPC4087-70-32 18:51:00 Test Item Value Reference Range Interpretation Comments POC A LA (test code = POC A LA) 0.6 0.5-2.2 N [facility] AustinTtloytfHMNJWHSNS6511-99-77 18:51:00 Test Item Value Reference Range Interpretation Comments POC A Ca Ion (test code = POC A Ca Ion) 1.09 1.05-1.25 N [facility] AustinAgamoynVWIKSXVJN8611-15-41 18:51:00 Test Item Value Reference Range Interpretation Comments POC A Source (test code = POC A Source) ART [facility] AustinRvatxsbPRPMZUPBA1854-24-27 17:38:00 Test Item Value Reference Range Interpretation Comments POC A LA (test code = POC A LA) 0.6 0.5-2.2 N [facility] AustinVkytoelTYGNFSWMC8876-06-76 17:38:00 Test Item Value Reference Range Interpretation Comments POC A Glu (test code = POC A Glu) 137 70-99 H [facility] AustinAbgthfqUWNSIMYLG6543-91-46 17:38:00 Test Item Value Reference Range Interpretation Comments POC A Ca Ion (test code = POC A Ca Ion) 1.08 1.05-1.25 N [facility] AustinUslyakfBALKCGBJA9853-22-47 17:38:00 Test Item Value Reference Range Interpretation Comments POC A K (test code = POC A K) 3.4 3.5-5.1 L [facility] AustinRgztehtLVENVXLNM3490-49-64 17:38:00 Test Item Value Reference Range Interpretation Comments POC A Na (test code = POC A Na) 135 135-145 N [facility] AustinQyfmgbzKHMXAUUFB0698-41-61 17:38:00 Test Item Value Reference Range Interpretation Comments POC A Hct (test code = POC A Hct) 29.0 36.0-48.0 L [facility] AustinGlrilmrEUADRNBGF8271-77-71 17:38:00 Test Item Value Reference Range Interpretation Comments POC A O2 Sat (test code = POC A O2 Sat) 100.0 95.0-100.0 N [facility] AustinJcofsjbGJXHKHZXV3665-74-41 17:38:00 Test Item Value Reference Range Interpretation Comments POC A Source (test code = POC A Source) ART [facility] AustinQnwluqeRKGWSXWFV1831-53-23 17:38:00 Test Item Value Reference Range Interpretation Comments POC A BE (test code = 8 See_Comment H [Auto mated message] The POC A BE) system which ge nerated this result transmit dewayne reference range : <=2. The reference range was not used to interpr et this result as dallin l/abnormal. [facility] AustinZuaswtdLGDYEMKHM1986-79-35 17:38:00 Test Item Value Reference Range Interpretation Comments POC A HCO3 (test code = POC A HCO3) 31 22-26 H [facility] AustinEfkndamESXRHWUSH9232-38-55 17:38:00 Test Item Value Reference Range Interpretation Comments POC A PCO2 (test code = POC A PCO2) 38 35-45 N [facility] AustinPohoxehFLOVMXAND5556-01-14 17:38:00 Test Item Value Reference Range Interpretation Comments POC A PO2 (test code = POC A PO2) 190 80-100 H [facility] AustinEnblarxNOZKXKKHV9556-76-23 17:38:00 Test Item Value Reference Range Interpretation Comments POC A Temp (test code = POC A Temp) 37.0 [facility] AustinXbwfajxBXRCKEBFC1213-97-69 17:38:00 Test Item Value Reference Range Interpretation Comments POC A pH (test code = POC A pH) 7.52 7.35-7.45 H [facility]VyygzbgGGVYJTCAIS0514-26-02 09:35:25 Test Item Value Reference Range Interpretation Comments aPTT (test code = aPTT) 36.1 s 22.9-35.8 H [facility] RWNIWXD1156-43-62 04:03:33 Test Item Value Reference Range Interpretation Comments RBC product (test code Product available N = RBC product) (10/07/2013 22:03:33) [facility] SystemDzvytbxXMAMJEVSII7024-63-27 02:50:37 Test Item Value Reference Range Interpretation Comments aPTT (test code = aPTT) 38.5 s 22.9-35.8 H [facility] RBEHXGC9967-79-16 13:48:00 Test Item Value Reference Range Interpretation Comments RBC product (test code Product available N = RBC product) (10/07/2013 07:48:00) [facility]GyuritvMVBOUBVUHN3506-30-28 11:46:54 Test Item Value Reference Range Interpretation Comments UA Bacteria (test code = UA Few /HPF N Bacteria) [facility] WorthCzyqnzbWRUHPHNCNT6413-54-36 11:46:54 Test Item Value Reference Range Interpretation Comments UA RBC (test code = UA RBC) 5-15 [facility] WorthAgzgflgKUUPGDETKU3233-77-21 11:46:54 Test Item Value Reference Range Interpretation Comments UA WBC (test code = UA WBC) 11-20 /HPF A [facility] WorthWqgptkcPOCNAXQWQK1792-79-44 11:46:54 Test Item Value Reference Range Interpretation Comments UA Sq Epi (test code = UA Sq Epi) Rare /LPF N [facility] WorthKsumeybLWLWYECTHN0030-96-24 11:46:54 Test Item Value Reference Range Interpretation Comments UA Blood (test code = Small *ABN*(10/06/2013 A UA Blood) 05:46:54) [facility] WorthXeyarlqCVDUKVURHN9755-69-50 11:46:54 Test Item Value Reference Range Interpretation Comments UA Urobilinogen (test code = UA 0.2 0.1-1.0 N Urobilinogen) [facility] WorthVxnlpegSPMRXJFXEU5470-95-13 11:46:54 Test Item Value Reference Range Interpretation Comments UA Nitrite (test code Negative (10/06/2013 N = UA Nitrite) 05:46:54) [facility] WorthSzuxhcxJITXAEVLCN6723-63-20 11:46:54 Test Item Value Reference Range Interpretation Comments UA Leuk Est (test code Small *ABN*(10/06/2013 A = UA Leuk Est) 05:46:54) [facility] WorthXcmihtwLYJIITNAWZ6526-82-75 11:46:54 Test Item Value Reference Range Interpretation Comments UA Glucose (test code Negative (10/06/2013 N = UA Glucose) 05:46:54) [facility] WorthKadxgnyWEFXWIIAPL4402-57-64 11:46:54 Test Item Value Reference Range Interpretation Comments UA Protein (test code Negative (10/06/2013 N = UA Protein) 05:46:54) [facility] WorthSgtutbqKOTEQQQXWC8146-47-62 11:46:54 Test Item Value Reference Range Interpretation Comments UA Ketones (test code Negative = UA Ketones) *NA*(10/06/2013 05:46:54) [facility]gmvlgbUZYCYFTPXR8767-26-67 11:46:54 Test Item Value Reference Range Interpretation Comments UA Bili (test code = Negative *NA*(10/06/2013 UA Bili) 05:46:54) [facility] HospitalYyuhhdkKRMCMKRVOB7169-36-13 11:46:54 Test Item Value Reference Range Interpretation Comments UA pH (test code = UA pH) 6.0 1 5.0-8.0 N [facility] HospitalLekozbeVYIJCPVQPW7667-04-00 11:46:54 Test Item Value Reference Range Interpretation Comments UA Turbidity (test code = UA Turbidity) Hazy [facility] HospitalQubczsaDELVOSJBKS3210-50-52 11:46:54 Test Item Value Reference Range Interpretation Comments UA Spec Grav (test code = UA Spec 1.015 1 N Grav) [facility] HospitalNefxrjbIUWUDDZBNE3803-62-85 11:46:54 Test Item Value Reference Range Interpretation Comments UA Color (test code = Yellow *NA*(10/06/2013 UA Color) 05:46:54) [facility] Ubidyne SCCUCNW9894-24-18 06:30:00 Test Item Value Reference Range Interpretation Comments Antibody Scrn (test Negative (10/06/2013 N code = Antibody Scrn) 00:30:00) [facility] PEBKFNX0766-52-13 06:30:00 Test Item Value Reference Range Interpretation Comments ABO/Rh (test code = ABO/Rh) A POS [facility]neVgnskmvILEUGLBBI0265-94-22 06:30:00 Test Item Value Reference Range Interpretation Comments Lactic Acid Lvl (test code = Lactic 1.3 0.5-2.2 N Acid Lvl) [facility]nePbvhduxUQUEFXYZU6633-41-25 06:30:00 Test Item Value Reference Range Interpretation Comments BE Salo (test code = 1 See_Comment N [Automa dewayne message] The BE Salo) system which ge nerated this result transmit dewayne reference range : <=2. The reference range was not used to interpr et this result as dallin l/abnormal. [facility]neWfdyolqAFOKUYUFF5304-33-43 06:30:00 Test Item Value Reference Range Interpretation Comments O2 Sat Salo (test code = O2 Sat Salo) 54.5 40.0-70.0 N [facility] HospitalAvdycppUAHIGULPY6857-81-86 06:30:00 Test Item Value Reference Range Interpretation Comments Temp Salo (test code = Temp Salo) 37.0 [facility] AustinLzsooalJZVFWHQGI6302-44-56 06:30:00 Test Item Value Reference Range Interpretation Comments HCO3 Salo (test code = HCO3 Salo) 29 22-26 H [facility] AustinMuiiazfTXGTTLVJS8269-54-57 06:30:00 Test Item Value Reference Range Interpretation Comments pCO2 Salo (test code = pCO2 Salo) 62 38-52 H [facility] AustinWathsczDDYTUEXNG5937-90-44 06:30:00 Test Item Value Reference Range Interpretation Comments pH Salo (test code = pH Salo) 7.28 7.28-7.42 N [facility] AustinIcmmyabBWVHGNLLD4408-18-54 06:30:00 Test Item Value Reference Range Interpretation Comments pO2 Salo (test code = pO2 Salo) 33 20-49 N [facility] AustinKuhrslpUSELVXGPI5841-14-18 06:30:00 Test Item Value Reference Range Interpretation Comments Phosphorus (test code = Phosphorus) 4.6 2.5-4.5 H [facility] AustinIjbgquhSPCTONURT8910-45-26 06:30:00 Test Item Value Reference Range Interpretation Comments Magnesium Lvl (test code = Magnesium 2.0 1.8-2.4 N Lvl) [facility] SystemZecalfeOITWLWXQRW5040-65-83 06:30:00 Test Item Value Reference Range Interpretation Comments Max Amp (test code = Max Amp) 65 mm 52-71 N [facility] SystemRfokhckHXKIHWOUOZ9411-36-43 06:30:00 Test Item Value Reference Range Interpretation Comments G-value (test code = G-value) 9.1 5.0-11.6 N [facility] SystemYnmsgcnELKIGBLIHF5617-39-39 06:30:00 Test Item Value Reference Range Interpretation Comments K-time (test code = K-time) 0.9 min 0.6-2.3 N [facility] SystemXpsbaepMKLGRLZPVD6785-22-88 06:30:00 Test Item Value Reference Range Interpretation Comments Rapid TEG Sample Type Citrated Whole Blood (test code = Rapid TEG Sample Type) [facility] SystemUhvusmeZFODKQDDHF4001-96-11 06:30:00 Test Item Value Reference Range Interpretation Comments ACT (TEG) (test code = ACT (TEG)) 144 s 86-118 H [facility] SystemUzrigqwBHZROWKKBD6271-56-88 06:30:00 Test Item Value Reference Range Interpretation Comments Split Point (test code = Split Point) 0.8 min [facility] SystemKaqmgcaYJJTVFEKMF5597-58-82 06:30:00 Test Item Value Reference Range Interpretation Comments Angle (test code = Angle) 78 degrees 64-80 N [facility] SystemQbdnhcwOQASNPOICR2063-83-50 06:30:00 Test Item Value Reference Range Interpretation Comments R-time (test code = R-time) 1.0 min 0.4-0.7 H [facility] SystemGlfczjpDGOFDGCWRM1274-31-55 06:30:00 Test Item Value Reference Range Interpretation Comments Estimated % Lysis (test 3.7 See_Comment N [Au tomated message] The code = Estimated % system wh ich generated Lysis) this result tra nsmitted reference range : <=7.5. The reference r andreia was not used to int erpret this result as normal/abnormal . [facility]
[2022-08-15 14:02] LABS: Absolute Lymphocytes (CBC) 2.1 K/uL (0.7-4.9); MCV 92.7 fL (80-100); MPV 6.2 fL (7.6-11.3)
[2022-08-15 14:22] LABS: Potassium 3.8 mmol/L (3.5-5.1)
--- NOTE | 2022-08-15 14:41 | RAD REPORT ---
EXAM DESCRIPTION: CT - Head C Spine Cap Wo Con - 08/15/2022 2:05 pm CLINICAL HISTORY: Trauma, head and neck injury. Chest, abdomen and pelvis pain. fall, on blood thinners COMPARISON: No comparisons TECHNIQUE: CT head without contrast. CT cervical spine without contrast with coronal and sagittal reformatted images. CT chest, abdomen and pelvis without contrast with coronal and sagittal reformatted images of the spi ne. All CT scans are performed using dose optimization technique as appropriate and may include automated exposure control or mA/KV adjustment according to patient size. FINDINGS: CT HEAD WITHOUT CONTRAST: No intracranial hemorrhage, hydrocephalus or extra-axial fluid collection. Mild generalized brain atr ophy is present with moderate periventricular and deep white matter chronic microvascular ischemic ch anges. No areas of brain edema or midline shift. The paranasal sinuses and mastoids are clear. The calvarium is intact. Bilateral vertebral atheroscle rosis. CT CERVICAL SPINE WITHOUT CONTRAST: No fracture or subluxation. Moderate multilevel degenerative spondylosis of the cervical spine. The p revertebral soft tissues are normal in thickness. CT CHEST, ABDOMEN, PELVIS WITHOUT CONTRAST: NOTE: Lack of contrast is a significant limitation in the assessment of trauma related findings. Spec ifically, solid organ, vascular and bowel evaluation is significantly limited. Mild ground-glass opacity is present in both lungs, nonspecific.There is significant edema, swelling and soft tissue thickening involving the left breast. Several mildly prominent lymph nodes are also p resent in the left axilla. This is a nonspecific finding on CT.No pneumothorax or pericardial/pleural fluid. No evidence of intra-abdominal visceral injury, free fluid or free air is seen within the above detai led limitations. There is significant right-sided renal hydronephrosis, appear to be caused by a 6 mm stone at the right UPJ. Additional right renal calculus seen inferiorly. The bones are diffusely osteopenic. Moderate lumbar degenerative changes. There is evidence of fracture involving the proximal left humerus. IMPRESSION: Fracture of the proximal left humerus is present. Significant abnormal appearance to the left breast as detailed. Recommend clinical correlation and in spection. Severe right sided hydronephrosis appears to be caused by 6 mm stone at the right UPJ.
[2022-08-15] MEDS ORDERED: FENTANYL CITR 100 MCG/2 ML ONE (15:19)
--- NOTE | 2022-08-15 16:12 | RAD REPORT ---
EXAM DESCRIPTION: RAD - Humerus Left - 08/15/2022 2:48 pm CLINICAL HISTORY: PAIN COMPARISON: No comparisons FINDINGS: Diffuse osteopenia is seen. Mildly displaced fracture the proximal shaft of the left humer us is seen. No dislocation.
--- NOTE | 2022-08-15 16:18 | ER ---
Nurse's Notes [facility] Name: Melany Schwartz Age: 87 yrs Sex: Female : 1935 Arrival Date: 08/15/2022 Time: 13:35 Bed 26 Private MD: Diagnosis: Left Proximal Humerus Fracture;Fall on same level, unspecified;Unspecified injury of head, initial encounter Presentation: 08/15 13:35 Chief complaint: EMS states: Fell backwards from standing position and hit head on bathroom door. Takes warfarin. Negative LOC. Limited ROM due to severe pain in left upper arm. Coronavirus screen: At this time, the client does not indicate any symptoms associated with coronavirus-19. Ebola Screen: No symptoms or risks identified at this time. Initial Sepsis Screen: Does the patient meet any 2 criteria? No. Patient's initial sepsis screen is negative. Does the patient have a suspected source of infection? No. Patient's initial sepsis screen is negative. Risk Assessment: Do you want to hurt yourself or someone else? Patient reports no desire to harm self or others. Onset of symptoms was August 15, 2022. 13:35 Method Of Arrival: EMS: [facility] 13:35 Acuity: ADOLFO 2 13:37 Care prior to arrival: Medication(s) given: Fentanyl 50 mcg to 20 g RAC. Mechanism of hb Injury: Fall from standing position. Trauma event details: Injury occurred in the [facility], Injury occurred: at home. Injury occurred: August 15, 2022. Trauma Activation: Alert Physician: ED Physician; Name: ; Notified At: ; Arrived At: Physician: General Surgeon; Name: ; Notified At: ; Arrived At: Physician: Radiology; Name: ; Notified At: ; Arrived At: Physician: Respiratory; Name: ; Notified At: ; Arrived At: Physician: Lab; Name: ; Notified At: ; Arrived At: Historical: - Allergies: 13:39 Morphine; hb - PMHx: 13:39 Atrial fibrillation; Chronic obstructive lung disease; Congestive heart failure; hb diabetes mellitus; Hypertensive disorder; - PSHx: 13:39 Appendectomy; hb - Immunization history:: Adult Immunizations Adult Immunizations up to date. - Social history:: Smoking status: Patient denies any tobacco usage or history of. Screenin:30 Nutritional screening: No deficits noted. Fall Risk Fall in past 12 months (25 points). eh3 Secondary diagnosis (15 points) IV access (20 points). Ambulatory Aid- None/Bed Rest/Nurse Assist (0 pts). Gait- Impaired (20 pts.). Mental Status- Oriented to own ability (0 pts). Total Person Fall Scale indicates High Risk Score (45 or more points). Fall prevention measures have been instituted. Side Rails Up X 2 Placed Close to Nursing Station Frequent Obs/Assessments Occuring As available patient and family educated on Fall Prevention Program and Strategies. 13:39 Abuse screen: Denies threats or abuse. Denies injuries from another. Tuberculosis hb screening: No symptoms or risk factors identified. Primary Survey: 13:30 NO uncontrolled hemorrhage observed. A: The client is awake and alert. The airway is hb patent. Breathing/Chest: Spontaneous respiratory effort, equal unlabored respirations, breath sounds clear bilaterally, regular pattern, symmetrical chest rise and fall. Circulation: No external hemorrhage present. Regular and strong central pulse, skin warm/dry/normal color. Disability Pupils are equal, round, reactive to light and accommodation. Client is alert. Exposure/Environment: All clothing and personal items were removed. There is no evidence of uncontrolled external bleeding. Obvious injury(ies) are noted at this time: limited ROM LUE A warming method has been applied: A warm blanket has been provided to the patient. Secondary Survey: 13:39 HEENT: No deficits noted. Gastrointestinal: No deficits noted. : No deficits noted. hb No signs and/or symptoms were reported regarding the genitourinary system. Musculoskeletal: Range of motion: limited in left shoulder. Assessment: 13:30 General: Appears in no apparent distress. uncomfortable, Behavior is cooperative, eh3 appropriate for age, anxious. Pain: Complains of pain in left arm and left shoulder Pain does not radiate. Pain currently is 9 out of 10 on a pain scale. Quality of pain is described as sharp, throbbing, Pain began 30 min ago. Is continuous, Alleviated by nothing. Neuro: Level of Consciousness is awake, alert, obeys commands, Oriented to person, place, time, situation. Cardiovascular: Capillary refill < 3 seconds Patient's skin is warm and dry. Respiratory: Airway is patent Respiratory effort is even, unlabored, Respiratory pattern is regular, symmetrical. GI: No signs and/or symptoms were reported involving the gastrointestinal system. : No signs and/or symptoms were reported regarding the genitourinary system. EENT: No signs and/or symptoms were reported regarding the EENT system. Derm: No signs and/or symptoms reported regarding the dermatologic system. Musculoskeletal: Circulation, motion, and sensation intact. Range of motion: limited in left shoulder. 14:30 Reassessment: Patient and/or family updated on plan of care and expected duration. Pain eh3 level reassessed. Patient is alert, oriented x 3, equal unlabored respirations, skin warm/dry/pink. Vital Signs: 13:30 BP 137 / 83; Pulse 68; Resp 16; Pulse Ox 89% on R/A; Pain 8/10; eh3 13:35 BP 128 / 101; Pulse 88; Resp 16; Temp 97.8; Pulse Ox 100% on R/A; Weight 74.84 kg; hb Height 5 ft. 7 in. (170.18 cm); Pain 9/10; 13:35 Pulse Ox 97% on 2 lpm NC; eh3 14:30 BP 146 / 79; Pulse 61; Resp 16; Pulse Ox 95% on 2 lpm NC; eh3 13:35 Body Mass Index 25.84 (74.84 kg, 170.18 cm) hb Trauma Score (Adult): 16:46 Eye Response: spontaneous(1); Verbal Response: oriented(1); Motor Response: obeys jh7 commands(2); Systolic BP: > 89 mm Hg(4); Respiratory Rate: 10 to 29 per min(4); [place] Score: 15; Trauma Score: 12 ED Course: 13:30 Patient has correct armband on for positive identification. Placed in gown. Bed in low eh3 position. Call light in reach. Side rails up X2. Client placed on continuous cardiac and pulse oximetry monitoring. NIBP monitoring applied. Door closed. Noise minimized. Lights dimmed. Warm blanket given. Pillow given. 13:30 Oxygen administration via nasal cannula \T\ 2L/min. eh3 13:35 Patient arrived in ED. hb 13:35 [facility] 13:35 Jesus Shelby MD is Attending Physician. jh7 13:37 Triage completed. hb 13:39 Arm band placed on. hb 13:56 Jackie Leyva, RN is Primary Nurse. eh3 14:07 CT Traumagram (Head C Spine CAP wo con) In Process Unspecified. EDMS 14:50 XRAY Shoulder LEFT 2 view In Process Unspecified. EDMS 14:50 XRAY Humerus LEFT In Process Unspecified. EDMS 16:16 Tashi Smith MD is Referral Physician. [facility] Administered Medications: 15:30 Drug: fentaNYL (PF) 25 mcg Route: IVP; Site: right antecubital; 3 08/16 00:33 Follow up: Response: Pain is decreased [facility] Outcome: 08/15 16:18 Discharge ordered by . [facility] 18:30 Discharged to home via wheelchair, with family. [facility] 18:30 Condition: stable 18:30 Discharge instructions given to patient, family, Instructed on discharge instructions, follow up and referral plans. Demonstrated understanding of instructions, follow-up care. 18:54 Patient left the ED. iw Signatures: Dispatcher [employer] Tiana Mack RN RN Roxanne Molina RN RN Jackie Leyva, RN RN [facility] Angelique Ribeiro, SAND CASTER APPRENTICE SAND CASTER APPRENTICE [facility]
--- NOTE | 2022-08-15 16:18 | EDPHYS ---
Physician Documentation [facility] Name: Melany Schwartz Age: 87 yrs Sex: Female : 1935 Arrival Date: 08/15/2022 Time: 13:35 Bed 26 Private MD: ED Physician Jesus Shelby HPI: 08/15 13:40 This 87 yrs old Female presents to ER via EMS with complaints of Fall Injury. [facility] 13:40 Details of fall: The patient fell from an upright position, while standing. Onset: The [facility] symptoms/episode began/occurred acutely. Associated injuries: The patient sustained injury to the head, contusion, left arm, decreased range of motion, painful injury. 16:46 Patient reports that she fell backwards from standing and hit her head on the closet [facility] door. Reports that she takes Coumadin. Reports that her left arm took the impact from the fall and now she is experiencing severe pain over her upper arm.. Historical: - Allergies: 13:39 Morphine; hb - PMHx: 13:39 Atrial fibrillation; Chronic obstructive lung disease; Congestive heart failure; hb diabetes mellitus; Hypertensive disorder; - PSHx: 13:39 Appendectomy; hb - Immunization history:: Adult Immunizations Adult Immunizations up to date. - Social history:: Smoking status: Patient denies any tobacco usage or history of. ROS: 16:46 Constitutional: Negative for fever, chills, and weight loss, Eyes: Negative for injury, jh7 pain, redness, and discharge, ENT: Negative for injury, pain, and discharge, Neck: Negative for injury, pain, and swelling, Cardiovascular: Negative for chest pain, palpitations, and edema, Respiratory: Negative for shortness of breath, cough, wheezing, and pleuritic chest pain, Abdomen/GI: Negative for abdominal pain, nausea, vomiting, diarrhea, and constipation, Back: Negative for injury and pain, Skin: Negative for injury, rash, and discoloration, Neuro: Negative for headache, weakness, numbness, tingling, and seizure. 16:46 MS/extremity: Positive for injury or acute deformity, decreased range of motion, pain, tenderness. 16:46 All other systems are negative. Exam: 16:46 Constitutional: This is a well developed, well nourished patient who is awake, alert, jh7 and in no acute distress. Head/Face: Normocephalic, atraumatic. Eyes: Pupils equal round and reactive to light, extra-ocular motions intact. Lids and lashes normal. Conjunctiva and sclera are non-icteric and not injected. Cornea within normal limits. Periorbital areas with no swelling, redness, or edema. ENT: Nares patent. No nasal discharge, no septal abnormalities noted. Tympanic membranes are normal and external auditory canals are clear. Oropharynx with no redness, swelling, or masses, exudates, or evidence of obstruction, uvula midline. Mucous membranes moist. Neck: Trachea midline, no thyromegaly or masses palpated, and no cervical lymphadenopathy. Supple, full range of motion without nuchal rigidity, or vertebral point tenderness. No Meningismus. Cardiovascular: Regular rate and rhythm with a normal S1 and S2. No gallops, murmurs, or rubs. Normal PMI, no JVD. No pulse deficits. Respiratory: Lungs have equal breath sounds bilaterally, clear to auscultation and percussion. No rales, rhonchi or wheezes noted. No increased work of breathing, no retractions or nasal flaring. Abdomen/GI: Soft, non-tender, with normal bowel sounds. No distension or tympany. No guarding or rebound. No evidence of tenderness throughout. Back: No spinal tenderness. No costovertebral tenderness. Full range of motion. Skin: Warm, dry with normal turgor. Normal color with no rashes, no lesions, and no evidence of cellulitis. Neuro: Awake and alert, GCS 15, oriented to person, place, time, and situation. Cranial nerves II-XII grossly intact. Sensory grossly intact. Cerebellar exam normal. Normal gait. 16:46 Musculoskeletal/extremity: Extremities: noted in the left arm: contusion, decreased ROM, pain, tenderness, ROM: LUE: NVI, pain and TTP noted over the proximal humerus. Limited ROM secondary to pain. Cap refill <2sec, sensation intact.. Vital Signs: 13:30 BP 137 / 83; Pulse 68; Resp 16; Pulse Ox 89% on R/A; Pain 8/10; eh3 13:35 BP 128 / 101; Pulse 88; Resp 16; Temp 97.8; Pulse Ox 100% on R/A; Weight 74.84 kg; hb Height 5 ft. 7 in. (170.18 cm); Pain 9/10; 13:35 Pulse Ox 97% on 2 lpm NC; eh3 14:30 BP 146 / 79; Pulse 61; Resp 16; Pulse Ox 95% on 2 lpm NC; eh3 13:35 Body Mass Index 25.84 (74.84 kg, 170.18 cm) hb Trauma Score (Adult): 16:46 Eye Response: spontaneous(1); Verbal Response: oriented(1); Motor Response: obeys [facility] commands(2); Systolic BP: > 89 mm Hg(4); Respiratory Rate: 10 to 29 per min(4); Arjun Score: 15; Trauma Score: 12 Procedures: 16:59 Splinting: Splint applied to Left proximal humerus using Orthoglass splint, applied by [facility] tech. Patient tolerated well. MDM: 13:35 Patient medically screened. [facility] 16:40 Differential diagnosis: closed head injury, contusion, fracture, sprain, Dislocation. [facility] Data reviewed: vital signs, nurses notes, lab test result(s), radiologic studies, CT scan, plain films. Data interpreted: Pulse oximetry: is 95 %. Interpretation: normal. Counseling: I had a detailed discussion with the patient and/or guardian regarding: the historical points, exam findings, and any diagnostic results supporting the discharge/admit diagnosis, the need for outpatient follow up, a orthopedic surgeon, to return to the emergency department if symptoms worsen or persist or if there are any questions or concerns that arise at home. Response to treatment: the patient's symptoms have mildly improved after treatment. ED course: Spoke to the patient regarding both acute and nonacute CT findings. The patient reports that she has had radiation on her left breast which explains the CT scan abnormality. She also stated that she has multiple renal stones in her right kidney that are being managed by urology. She reports that her right kidney does not work anymore and that it was decided to not remove the stone. She denies any flank pain at this time. Agreed to place the patient in a coaptation splint with sling and have her follow-up with an orthopedist.. 08/15 13:36 Order name: Basic Metabolic Panel; Complete Time: 14:48 [facility] 08/15 13:36 Order name: CBC with Diff; Complete Time: 14:20 [facility] 08/15 13:36 Order name: CT Traumagram (Head C Spine CAP wo con); Complete Time: 14:48 [facility] 08/15 13:36 Order name: XRAY Shoulder LEFT 2 view; Complete Time: 16:38 [facility] 08/15 13:36 Order name: XRAY Humerus LEFT; Complete Time: 16:38 [facility] 08/15 13:36 Order name: Labs collected and sent; Complete Time: 13:56 [facility] 08/15 15:17 Order name: Sling; Complete Time: 00:33 [facility] 08/15 15:17 Order name: Splint: Coaptation splint; Complete Time: 00:33 [facility] Administered Medications: 15:30 Drug: fentaNYL (PF) 25 mcg Route: IVP; Site: right antecubital; [facility] 08/16 00:33 Follow up: Response: Pain is decreased [facility] Disposition Summary: 08/15/22 16:18 Discharge Ordered Location: Home [facility] Problem: new [facility] Symptoms: are unchanged [facility] Condition: Stable [facility] Diagnosis - Left Proximal Humerus Fracture [facility] - Fall on same level, unspecified [facility] - Unspecified injury of head, initial encounter [facility] Followup: [facility] - With: Tashi Smith MD - When: 2 - 3 days - Reason: Recheck today's complaints Discharge Instructions: - Discharge Summary Sheet [facility] - Cast or Splint Care, Adult [facility] - Head Injury, Adult [facility] - Humerus Fracture Treated With Immobilization [facility] - How to Use a Sling [facility] Forms: - Medication Reconciliation Form [facility] - Thank You Letter [facility] - Prescription Opioid Use [facility] Prescriptions: - Tramadol 50 mg Oral Tablet - take 1 tablet by ORAL route every 8 hours As needed as needed; 12 tablet; [facility] Refills: 0, Product Selection Permitted Addendum: 08/18/2022 08:01 Co-signature as Attending Physician, Jesus Shelby MD I agree with the assessment and [facility] plan of care. Signatures: Dispatcher [employer] Jesus Sheppard MD MD cha Baxter, Heather, RN RN Jackie Leyva RN RN [facility] Angelique Ribeiro, LAWNMOWER REPAIR MECHANIC LAWNMOWER REPAIR MECHANIC [facility] Corrections: (The following items were deleted from the chart) 08/15 16:51 13:40 Associated injuries: The patient sustained injury to the head, contusion, left jh7 arm, decreased range of motion, painful injury, jh7
--- NOTE | 2022-08-15 16:24 | RAD REPORT ---
EXAM DESCRIPTION: RAD - Shoulder Left 2 View - 08/15/2022 2:48 pm CLINICAL HISTORY: PAIN COMPARISON: No comparisons FINDINGS: Diffuse osteopenia is seen. Mildly angulated fracture the proximal left humerus is seen. N o dislocation evident.
[2022-08-15 19:28] VITALS: TEMP 97.8
[2022-08-15 19:29] VITALS: BP 146/79; O2SAT 95
== END 2022-08-15 18:54 | disposition home or self-care (01) ==
LOC: ER 13:34
DX: S42.202A Unspecified fracture of upper end of left humerus, initial encounter for closed fracture (principal); S09.90XA Unspecified injury of head, initial encounter; W18.30XA Fall on same level, unspecified, initial encounter; Z88.5 Allergy status to narcotic agent; I10 Essential (primary) hypertension
CPT/HCPCS: 85025; 80048; 36415; 70450; 71250; 72125; 73060; 73030; 96374; 99284; J3010

== ENCOUNTER 2023-07-23 07:33 | Inpatient (IN) | payer OTHER ==
[2023-07-23 07:54] LABS: Absolute Lymphocytes (CBC) 0.8 K/uL (0.7-4.9); Hematocrit 39.2 % (36.0-45.0); Lymphocytes % 5.6 % (15.3-44.8); MCV 89.8 fL (80-100); MPV 6.4 fL (7.6-11.3); Platelets 220 thou/uL (152-406); RBC Red Blood Cell Count 4.36 M/uL (3.86-4.86)
[2023-07-23 07:58] LABS: Protime INR 1.42
[2023-07-23 08:15] LABS: Bilirubin Direct 0.3 mg/dL (0-0.2); Bilirubin Indirect, Calculated 0.8 mg/dL (0.2-0.8); Bilirubin Total 1.1 mg/dL (0.2-1.0); Magnesium 1.5 mg/dL (1.6-2.4); Potassium 3.4 mEq/L (3.5-5.1); Protein, Total 7.4 g/dL (6.4-8.2)
[2023-07-23 08:17] LABS: Troponin High Sensitivity 403.8 pg/mL (<58.9)
[2023-07-23 08:35] LABS: SARS-COV-2 RT PCR NEGATIVE (NEGATIVE)
--- NOTE | 2023-07-23 09:00 | ER ---
Nurse's Notes [facility] Name: Melany Schwartz Age: 88 yrs Sex: Female : 1935 Arrival Date: 07/23/2023 Time: 07:33 Bed 2 Private MD: Diagnosis: Other pneumonia, unspecified organism;Heart failure, unspecified;Acute pulmonary edema;Acute respiratory failure Presentation: 07/23 07:34 Chief complaint: EMS states: Pt from home, called EMS for general weakness, N/V and ph SOB, Room air Spo2 84%, pt does wear oxygen at night, improved to 92% on 6L NC, began tx yesterday for UTI, oral temp 99.0. Coronavirus screen: Vaccine status: Patient reports receiving the 2nd dose of the covid vaccine. Ebola Screen: No symptoms or risks identified at this time. Initial Sepsis Screen: Does the patient meet any 2 criteria? RR > 20 per min. Does the patient have a suspected source of infection? Yes: Productive cough/pneumonia Dysuria/Frequency/Urgency/UTI. Risk Assessment: Do you want to hurt yourself or someone else? Patient reports no desire to harm self or others. Onset of symptoms was July 23, 2023. 07:34 Method Of Arrival: EMS[facility] ph 07:34 Acuity: ADOLFO 2 ph Triage Assessment: 07:38 General: Appears in no apparent distress. uncomfortable, Behavior is calm, appropriate ph for age, drowsy. Pain: Complains of pain in back. Neuro: Level of Consciousness is awake, obeys commands, lethargic, Oriented to person, place, time, situation, Reports weakness. Cardiovascular: Reports fatigue, nausea, shortness of breath, vomiting, Capillary refill is sluggish in bilateral fingers. Respiratory: Reports shortness of breath at rest Airway is patent Respiratory effort is labored, gasping, with retractions, Respiratory pattern is tachypnea Breath sounds with crackles in right posterior lower lobe and right posterior middle lobe. GI: Reports nausea, vomiting, Patient currently denies abdominal pain. : Reports burning with urination. Derm: Skin is normal. Musculoskeletal: Circulation, motion, and sensation intact. 07:40 Respiratory: the patient has moderate shortness of breath. ph Historical: - Allergies: 07:37 Morphine; ph - PMHx: 07:37 Atrial fibrillation; Chronic obstructive lung disease; Congestive heart failure; ph diabetes mellitus; Hypertensive disorder; - PSHx: 07:37 Appendectomy; ph - Immunization history:: Adult Immunizations unknown. - Social history:: Smoking status: unknown. Screenin:37 [facility] ED Fall Risk Assessment (Adult) History of falling in the last 3 months, ph including since admission No falls in past 3 months (0 pts) Confusion or Disorientation No (0 pts) Intoxicated or Sedated No (0 pts) Impaired Gait Yes (1 pt) Mobility Assist Device Used Yes (1 pt) Altered Elimination Yes (1 pt) Score/Fall Risk Level 3 or more points = High Risk Oriented to surroundings, Maintained a safe environment, Provided non-skid footwear, Hourly rounding (assess needs \T\ fall precautionary measures) done, Used ambulatory aids as needed (educated on \T\ assisted with). Abuse screen: Denies threats or abuse. Denies injuries from another. Nutritional screening: No deficits noted. Tuberculosis screening: No symptoms or risk factors identified. Assessment: 07:54 General: SEE TRIAGE ASSESSMENT. ph Vital Signs: 07:34 BP 118 / 55; Pulse 71; Resp 24; Temp 99; Pulse Ox 91% on 6 lpm NC; Weight 65.77 kg; ph Height 4 ft. 11 in. ; 07:55 BP 125 / 105; Pulse 78; Resp 26; Pulse Ox 92% on 6 lpm NC; ph 09:00 BP 116 / 58; Pulse 69; Resp 23; Pulse Ox 91% on 6 lpm NC; ph 10:00 BP 102 / 81 (/pedi); Pulse 74; Resp 22; Pulse Ox 93% on BiPAP; ph 10:52 BP 120 / 105; Pulse 73; Resp 22; Pulse Ox 96% on BiPAP; ph 12:19 BP 118 / 43; Pulse 75; Resp 22; Pulse Ox 95% on BiPAP; ph 07:34 Body Mass Index 29.29 (65.77 kg, 149.86 cm) ph ED Course: 07:34 Patient arrived in ED. ph 07:34 Sergio Kumar DO is Attending Physician. ms3 07:37 Triage completed. ph 07:38 Arm band placed on Patient placed in an exam room, on a stretcher, on oxygen, on ph electronic device monitor, on pulse oximetry. 07:38 Patient has correct armband on for positive identification. Placed in gown. Bed in low ph position. Call light in reach. Side rails up X 1. Client placed on continuous cardiac and pulse oximetry monitoring. NIBP monitoring applied. Door closed. Noise minimized. 07:48 Inserted saline lock: 22 gauge in right forearm, using aseptic technique. Blood ds4 collected. 07:50 Flu Sent. hb 07:50 Basic Metabolic Panel Sent. hb 07:50 CBC with Diff Sent. hb 07:50 LFT's Sent. hb 07:50 Magnesium Sent. hb 07:50 NT PRO-BNP Sent. hb 07:50 PT-INR Sent. hb 07:50 Troponin HS Sent. hb 07:54 Melany Leyva, RN is Primary Nurse. ph 08:41 XRAY Chest (1 view) In Process Unspecified. EDMS 08:58 Bronson Lutz MD is Hospitalizing Provider. ms3 09:27 Procalcitonin Sent. ph 10:00 Redman cath inserted, using sterile technique, 16 Fr., by id, balloon inflated, to ph gravity drainage, urine specimen collected. 10:07 Urinalysis W/Microscopic Sent. hb 10:54 No provider procedures requiring assistance completed. Patient admitted, IV remains in ph place. Administered Medications: 09:30 Drug: AZITHromycin IVPB 500 mg IVPB once over 1 hrs; (mix in 250 mL NS) Route: IVPB; ph Infused Over: 1 hrs; Site: right forearm; 10:30 Follow up: Response: No adverse reaction; IV Status: Completed infusion ph 09:45 Drug: Rocephin IV 1 grams IV at calculated rate once; Given slow IV push per pharmacy ph instructions Route: IV; Rate: calculated rate; Site: right forearm; 10:15 Follow up: Response: No adverse reaction; IV Status: Completed infusion ph 10:00 Drug: Furosemide IVP 40 mg IVP once; give over 2 minutes Route: IVP; Site: right ph forearm; 10:30 Follow up: Response: No adverse reaction ph Medication: 07:40 VIS not applicable for this client. ph Outcome: 08:59 Decision to Hospitalize by Provider. ms3 15:10 Admitted to ER Hold. Please see [facility] for further documentation. ph 15:10 Condition: stable 15:10 Instructed on the need for admit, 18:25 Patient left the ED. ph Signatures: Dispatcher [employer] [facility] Gopi Hwang ds4 Melany Leyva RN RN Roxanne Molina, ANNE RN Sergio Kumar DO DO ms3 Corrections: (The following items were deleted from the chart) 07:58 07:50 SARS-COV-2 RT PCR+MOL.LAB.BRZ drawn and sent. [facility] 08:50 07:55 BP 125 / 105; Pulse 78bpm; Resp 18bpm; Pulse Ox 92% 6 lpm Nasal Cannula; ph ph 10:57 10:54 AZITHromycin IVPB 500 mg IVPB in right forearm over 1 hrs ph ph
--- NOTE | 2023-07-23 09:00 | EDPHYS ---
Physician Documentation [facility] Name: Melany Schwartz Age: 88 yrs Sex: Female : 1935 Arrival Date: 07/23/2023 Time: 07:33 Bed 2 Private MD: ED Physician Sergio Kumar HPI: 07/23 07:35 This 88 yrs old Female presents to ER via Unassigned with complaints of General ms3 Weakness, Breathing Difficulty. 07:35 88-year-old female with past medical history of hypertension, congestive heart failure, ms3 asthma presents [facility] for fever. Patient's daughter stated to EMS patient's temperature has gone up through the night. Patient was diagnosed with a urinary tract infection yesterday. EMS notes patient's oxygen saturation was 84% on room air when they arrived. Patient is on home oxygen at night only. Patient denies any alleviating or inciting factors.. Historical: - Allergies: 07:37 Morphine; ph - PMHx: 07:37 Atrial fibrillation; Chronic obstructive lung disease; Congestive heart failure; ph diabetes mellitus; Hypertensive disorder; - PSHx: 07:37 Appendectomy; ph - Immunization history:: Adult Immunizations unknown. - Social history:: Smoking status: unknown. ROS: 07:35 Constitutional: Negative for fever, and chills. Neck: Negative for injury, pain, and ms3 swelling, Cardiovascular: Negative for chest pain, and palpitations. 07:35 Abdomen/GI: Negative for abdominal pain, nausea, vomiting, diarrhea, and constipation, Back: Negative for injury and pain, MS/Extremity: Negative for injury and deformity, Skin: Negative for injury, rash, and discoloration, 07:35 Respiratory: Positive for shortness of breath, 07:35 All other systems are negative, Exam: 07:35 Constitutional: This is a well developed, well nourished patient who is awake, alert, ms3 and in no acute distress. Head/Face: Normocephalic, atraumatic. Neck: Trachea midline, no cervical lymphadenopathy. Supple, full range of motion without nuchal rigidity, or vertebral point tenderness. No Meningismus. Chest/axilla: Normal chest wall appearance and motion. Nontender with no deformity. Cardiovascular: Regular rate and rhythm with a normal S1 and S2. No gallops, murmurs, or rubs. Normal PMI, no JVD. No pulse deficits. 07:35 Respiratory: mild respiratory distress is noted, Respirations: labored breathing, that is mild, Breath sounds: rales, that are moderate, are heard in the right posterior middle lobe and right posterior lower lobe, 09:20 ECG was reviewed by the Attending Physician. ms3 Vital Signs: 07:34 BP 118 / 55; Pulse 71; Resp 24; Temp 99; Pulse Ox 91% on 6 lpm NC; Weight 65.77 kg; ph Height 4 ft. 11 in. ; 07:55 BP 125 / 105; Pulse 78; Resp 26; Pulse Ox 92% on 6 lpm NC; ph 09:00 BP 116 / 58; Pulse 69; Resp 23; Pulse Ox 91% on 6 lpm NC; ph 10:00 BP 102 / 81 (/pedi); Pulse 74; Resp 22; Pulse Ox 93% on BiPAP; ph 10:52 BP 120 / 105; Pulse 73; Resp 22; Pulse Ox 96% on BiPAP; ph 12:19 BP 118 / 43; Pulse 75; Resp 22; Pulse Ox 95% on BiPAP; ph 07:34 Body Mass Index 29.29 (65.77 kg, 149.86 cm) ph MDM: 07:34 Patient medically screened. ms3 08:31 ED course: Discussed case with Dr Smyth. Does not recommend Heparin ggt at this time. ms3 Trend troponin.. 09:18 Differential diagnosis: Anemia CHF exacerbation, Chronic Obstructive Pulmonary Disease ms3 Myocardial Infarction pneumonia, Pneumothorax pulmonary edema. Antibiotic administration: Rocephin and Zithromax given. Data reviewed: vital signs, nurses notes, lab test result(s), EKG, radiologic studies, and as a result, I will admit patient. Consideration of Admission/Observation Patient was admitted/placed on observation. Management of patient was discussed with the following: Hospitalist: Dr Lutz and Maykel Najera NP. I considered the following discharge prescriptions or medication management in the emergency department Medications were administered in the Emergency Department. See MAR. Independent interpretation of the following test(s) in the Emergency Department X-Ray: My interpretation is CXR image reviewed by me shows bilateral opacities concerning for infection vs pulmonary edema. Historians other than the Patient: EMS: [facility]. Care significantly affected by the following chronic conditions: Hypertension, Congestive Heart Failure. Counseling: I had a detailed discussion with the patient and/or guardian regarding the historical points, exam findings, and any diagnostic results supporting the discharge/admit diagnosis, lab results, radiology results, the need for further work-up and treatment in the hospital. 07/23 07:35 Order name: Basic Metabolic Panel; Complete Time: 08:22 ms3 07/23 07:35 Order name: CBC with Diff; Complete Time: 10:43 ms3 07/23 07:35 Order name: LFT's; Complete Time: 08:22 ms3 07/23 07:35 Order name: Magnesium; Complete Time: 08:22 ms3 07/23 07:35 Order name: NT PRO-BNP; Complete Time: 08:22 ms3 07/23 07:35 Order name: PT-INR; Complete Time: 08:22 ms3 07/23 07:35 Order name: Troponin HS; Complete Time: 08:22 ms3 07/23 07:35 Order name: Urinalysis W/Microscopic; Complete Time: 10:43 ms3 07/23 07:41 Order name: Flu; Complete Time: 08:22 ms3 07/23 07:58 Order name: COVID-19/FLU A+B/RSV; Complete Time: 08:55 EDMS 07/23 08:49 Order name: Blood Culture Adult (2) ms3 07/23 08:49 Order name: CMP; Complete Time: 10:43 ms3 07/23 08:49 Order name: Lactate w/ 2H reflex if indic.; Complete Time: 10:43 ms3 07/23 08:49 Order name: Ptt, Activated; Complete Time: 10:43 ms3 07/23 08:50 Order name: ABG; Complete Time: 10:43 ms3 07/23 09:06 Order name: Procalcitonin; Complete Time: 10:43 la1 07/23 09:52 Order name: Manual Differential; Complete Time: 10:43 EDMS 07/23 07:35 Order name: XRAY Chest (1 view); Complete Time: 09:25 ms3 07/23 08:50 Order name: BIPAP ms3 07/23 07:35 Order name: EKG; Complete Time: 07:36 ms3 07/23 07:35 Order name: Cardiac monitoring; Complete Time: 07:41 ms3 07/23 07:35 Order name: EKG - Nurse/Tech; Complete Time: 07:48 ms3 07/23 07:35 Order name: IV Saline Lock; Complete Time: 07:48 ms3 07/23 07:35 Order name: Labs collected and sent; Complete Time: 07:48 ms3 07/23 07:35 Order name: O2 Per Protocol; Complete Time: 07:41 ms3 07/23 07:35 Order name: O2 Sat Monitoring; Complete Time: 07:41 ms3 07/23 08:49 Order name: Accucheck; Complete Time: 09:27 ms3 07/23 08:49 Order name: IV Saline Lock - Large Bore; Complete Time: 09:27 ms3 07/23 08:49 Order name: Vital Signs; Complete Time: 09:27 ms3 EC:20 Rate is 69 beats/min. Rhythm is irregular. Left axis deviation noted. QRS interval is ms3 prolonged. Clinical impression: Bigeminy. Interpreted by me. Reviewed by me. Administered Medications: 09:30 Drug: AZITHromycin IVPB 500 mg IVPB once over 1 hrs; (mix in 250 mL NS) Route: IVPB; ph Infused Over: 1 hrs; Site: right forearm; 10:30 Follow up: Response: No adverse reaction; IV Status: Completed infusion ph 09:45 Drug: Rocephin IV 1 grams IV at calculated rate once; Given slow IV push per pharmacy ph instructions Route: IV; Rate: calculated rate; Site: right forearm; 10:15 Follow up: Response: No adverse reaction; IV Status: Completed infusion ph 10:00 Drug: Furosemide IVP 40 mg IVP once; give over 2 minutes Route: IVP; Site: right ph forearm; 10:30 Follow up: Response: No adverse reaction ph Disposition: 09:18 Critical Care:. ms3 Disposition Summary: 07/23/23 08:59 Hospitalization Ordered Notes: Hospitalization Status: Inpatient Admission ms3 Provider: Bronson Lutz ms3 Condition: Guarded ms3 Problem: new ms3 Symptoms: are unchanged ms3 Bed/Room Type: Standard ms3 Location: Telemetry/MedSurg (Inpatient)(07/23/23 17:06) bd Room Assignment: 203(07/23/23 17:06) bd Diagnosis - Other pneumonia, unspecified organism ms3 - Heart failure, unspecified ms3 - Acute pulmonary edema ms3 - Acute respiratory failure ms3 Forms: - Medication Reconciliation Form ms3 - SBAR form ms3 - Leadership Thank You Letter ms3 Critical care time excluding procedures: 09:18 Critical care time: Bedside Care: 30 minutes, Consultation: 5 minutes, Family ms3 Intervention: 5 minutes. Total time: 40 minutes Signatures: Dispatcher [employer] EDDebi Carbone Patricia, RN RN ph Bryn Messina RN RN jl7 Sergio Kumar DO DO ms3 Corrections: (The following items were deleted from the chart) 07:58 07:42 SARS-COV-2 RT PCR+MOL.LAB.BRZ ordered. EDTN EDMS 15:09 08:59 Intensive Care Unit ms3 jl7 15:09 08:59 ms3 jl7 17:06 15:09 [facility] ER HOLD jl7 bd 17:06 15:09 ERHOLD- jl7 bd
[2023-07-23] MEDS ORDERED: CEFTRIAXONE 1000 MG/VIAL ONE (09:15)
[2023-07-23] MEDS ORDERED: AZITHROMYCIN 500 MG INJ IVPB ONE (09:15)
--- OUTSIDE RECORDS SUMMARY | 2023-07-23 09:15 | XMS REPORT | Continuity of Care Document ---
:1935 Author Organization [facility] t Address [address] [place] [address]. [address] [place] [address] Care Team Providers Name Role Phone Santy Brown MD Primary Care Physician Vernon Vieira Attending Clinician Unavailable Rodo Mitchell Attending Clinician RINA SY Attending Clinician Unavailable Rina Sy PA-C Attending Clinician Unknown, Attending Attending Clinician Unavailable Doctor Unassigned, [place] Attending Clinician Unavailable Nicole Whitfield RN Attending Clinician Unavailable ZAIN KEBEDE Attending Clinician Unavailable Kimber Maldonado Attending Clinician Zain Kebede DO Attending Clinician MARIA DEL CARMEN KELLEY Attending Clinician Unavailable MANDY BLAIR Attending Clinician Unavailable Galdino SCHREIBER, Mandy Attending Clinician Maria Del Carmen Long Attending Clinician DAVID HERNANDEZ Attending Clinician Unavailable Foreign MAE, Courtney Attending Clinician JERI LEUNG Attending Clinician Unavailable Jeri Leung MD Attending Clinician Jb Wells MD Attending Clinician CHAYA NOLAND Attending Clinician Unavailable Chaya Paredes Attending Clinician JB WELLS Attending Clinician Unavailable HILDA RICARDO Attending Clinician Unavailable 1, [facility] Attending Clinician Unavailable Khadijah Saul MD Attending Clinician José Sanchez Attending Clinician NARAYAN HUYNH NATASHA Attending Clinician Unavailable Sean Duran Admitting Clinician Unavailable ZAIN KEBEDE Admitting Clinician Unavailable Zain Kebede DO Admitting Clinician HILDA RICARDO Admitting Clinician Unavailable José Sanchez Admitting Clinician NARAYAN HUYNH NATASHA Admitting Clinician Unavailable Payers Payer Name Policy Type Policy Number Effective Date Expiration Date S wero AETNA MEDICARE ADV [id number] 2013 00:00:00 AETM AETM [id number] Problems Condition Condition Condition Status Onset Resolution Last Treating Co mments Source Name Details Category Date Date Treatment Clinician Date Coronary Coronary Disease Active Unive rs artery artery 3-21 ity of disease disease 00:00: [place] involving involving 00 [place] teller teller Branch coronary 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 Elevated Elevated Disease Active Unive rs brain brain 3-21 ity of natriure[place] natriureti [place] c peptide c peptide 00 [place] (BNP) (BNP) Branch level level Dyslipidem Dyslipidem Disease Active U nivers ia ia 3-21 ity of 00:00: [place] 00 Medical Branch Essential Essential Disease Active Uni vers hypertensi hypertensi 3-21 it y of on on 00:00: [place] 00 Medical Branch Frequent Frequent Disease Active Unive rs PVCs PVCs 3-21 ity of 00:00: [place] 00 Medical Branch PAF PAF Disease Active Univers (paroxysma (paroxysma 3-21 it y of l atrial l atrial 00:00: [place] fibrillati fibrillati 00 Me dical on) on) Branch S/P ICD S/P ICD Disease Active Univers (internal (internal 3-21 ity of cardiac cardiac 00:00: [place] defibrilla defibrilla 00 Me dical tor) tor) Branch procedure procedure Chronic Chronic Disease Active Univers combined combined 3-21 ity of systolic systolic 00:00: [place] (congestiv (congestiv 00 Me dical e) and e) and Branch diastolic diastolic (congestiv (congestiv e) heart e) heart failure failure Type 2 Type 2 Disease Active Univers diabetes diabetes 3-21 ity of mellitus mellitus 00:00: [place] with other with other 00 Me dical specified specified Bran ch complicati complicati on on Multifocal Multifocal Disease Active U nivers pneumonia pneumonia 3-20 ity of 00:00: [place] 00 Medical Branch Acute Acute Disease Active Univers hypoxemic hypoxemic 9-10 ity of respirator [place]ator [place] failure 00 [facility] Acute Acute Disease Active Univers systolic systolic 9-10 ity of (congestiv (congestiv [place] e) heart e) heart 00 Medica l failure failure Branch Dyspnea Dyspnea Disease Active Univers 9-04 ity of 00:00: [place] 00 Medical Branch [place] Problem Active 2019-03-10 M emoria a coli [place] 02-20 22:16:39 l (organism) a coli 00:00: [place] (organism) 00 Active 02/20/2019 Problem 03/10/2019 urine, 02/20/2019<b r/>Problem added by Discern Expert. [facility] Methicilli Methicill Problem Active 2019-03-10 [place] in 02-20 22:16:39 l resistant resistant 00:00: Carlos ferro Staphyloco Staphyloco 00 ccus ccus aureus aureus (organism) (organism) Active 02/20/2019 Problem 03/10/2019 nares (PCR), 02/20/2019<b r/>Problem added by Discern Expert. [facility] HYDRONEPHR HYDRONEPH Diagnosis Active 2019-03-11 [facility] OSIS, ROSIS, 02-20 22:14:00 l SEPTIC SEPTIC 00:00: [place] SHOCK, SHOCK, 00 ACUTE CYST ACUTE CYST Active 02/20/2019 [facility] ACUTE ACUTE Diagnosis Active 2019-02-21 [facility] oria HYPOXEMIC HYPOXEMIC 02-20 09:49:00 l RESPIRATOR RESPIRATOR 00:00: He rmann Y FAILURE, Y FAILURE, 00 LM LM Active 02/20/2019 [facility] OTHER OTHER Diagnosis Active 2019-02-20 [facility] oria Active 02-20 19:42:00 l 02/20/2019 00:00: [place] [address] Fall from Fall from Disease Active Overview: Univers standing, standing, 5-20 Formattin i ty of initial initial 00:00: g of this [place] encounter encounter 00 note [place] might be Branch different from the original. Added automatic ally from request for surgery [id number] Periprosth Periprosth Disease Active Overview : Univers etic etic 5-20 Formattin ity of fracture fracture 00:00: g of this [place] as around around 00 note Medical internal internal might be Bran ch prosthetic prosthetic different left knee left knee from the joint, joint, original. initial initial Added encounter encounter automatic ally from request for surgery [id number] Femur Femur Disease Active Univers fracture, fracture, 5-20 ity of left left 00:00: [place] [address] Medical Branch Obesity Obesity Disease Active Univers (BMI (BMI 5-26 ity of 30-39.9) 30-39.9) 00:00: [place] [address] Medical Branch Pneumonia Pneumonia Disease Active Uni vers - ity of 00:00: [place] [address] Medical Branch FEMUR FX FEMUR FX Diagnosis Active 2013-10-21 Memoria Active 10-05 21:46:00 l 10/05/2013 00:00: [place] [address] Center DISTAL DISTAL Diagnosis Active 2013-10-06 Me moria FEMUR FEMUR 1-21 01:35:00 l FRACTURE FRACTURE 00:00: [place] Active 00 10/05/2013 [facility] [id number] Closed Problem Common fracture [facility] Center unspecifie d fracture morphology , initial encounter 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 22:16:39 l failure failure Lead (disorder) (disorder) Resolved Problem 03/10/2019 [facility] Cerebrovas Cerebrova Problem Resolve 2019-03-10 Memoria cular scular d 22:16:39 l accident accident [place] n (disorder) (disorder) Resolved Problem 03/10/2019 [facility] Diabetes Diabetes Problem Resolve 2019-03-10 Memoria mellitus mellitus d 22:16:39 l (disorder) (disorder) He rmann Resolved Problem 03/10/2019 [facility] Hypertensi Problem Resolve 2019-03-10 Memoria ve Hypertensi d 22:16:39 l disorder, ve [place] systemic disorder, arterial systemic (disorder) arterial (disorder) Resolved Problem 03/10/2019 [facility] Hypothyroi Problem Resolve 2019-03-10 Memoria dism Hypothyroi d 22:16:39 l (disorder) dism [place] n (disorder) Resolved Problem 03/10/2019 [facility] Irritable Irritable Problem Resolve 2019-03-10 Memoria colon colon d 22:16:39 l (disorder) (disorder) He rmann Resolved Problem 03/10/2019 [facility] 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 l d 22:16:39 l (disorder) infarction He rmann (disorder) Resolved Problem 03/10/2019 [facility] Urinary Urinary Problem Resolve 2019-03-10 M emoria tract tract d 22:16:39 l infectious infectious He rmavis disease disease (disorder) (disorder) Resolved Problem 03/10/2019 [facility] HYDRONEPHR HYDRONEPH Diagnosis Active 2019-03-11 Memoria OSIS WITH ROSIS WITH 22:14:00 l URETEROPEL URETEROPEL He ismael WELLINGTON JUNCTI WELLINGTON JUNCTI Active [facility] ACUTE ACUTE Diagnosis Active 2019-02-21 Mem oria RESPIRATOR RESPIRATOR 09:49:00 l Y FAILURE Y FAILURE Herm avis WITH WITH HYPOXIA HYPOXIA Active [facility] Vinnie SEVERE SEVERE Diagnosis Active 2019-03-11 Me moria SEPSIS SEPSIS 22:14:00 l WITH WITH [place] SEPTIC SEPTIC [facility]OCK [facility] UNSPECIFIE UNSPECIFI Diagnosis Active 2019-02-21 Memoria D ED 09:49:00 l BACTERIAL BACTERIAL Herm avis PNEUMONIA PNEUMONIA Active [facility] FX FEMUR FX FEMUR Diagnosis Active 2013-10-21 Memoria NOS-CLOSED NOS-CLOSED 21:46:00 l Active [place] n [facility] Acute Acute Problem 2019-03-10 Memor ia respirator respirator 22:16:39 l y failure y failure Herm avis with with hypoxia hypoxia 03/10/2019 [facility] Asthma Asthma Problem Resolve 2019-03-10 Mem oria (disorder) (disorder) d 22:16:39 l Resolved [place]innie Problem 03/10/2019 [facility] Cardiac Cardiac Problem Resolve 2019-03-10 M emoria arrest arrest d 22:16:39 l (disorder) (disorder) He rmann Resolved Problem 03/10/2019 [facility] Malignant Malignant Problem 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-03-10 2019-03-10 Memoria tumor of tumor of d 8-14 22:16:39 22:16:39 l breast breast 00:00: [place] (disorder) (disorder) 00 Resolved 04/28/1999 Problem 03/10/2019 [facility] Allergies, Adverse Reactions, Alerts Allergy Allergy Status Severity Reaction(s) Onset Inactive Treating Comm ents Source Name Type Date Date Clinician TRAMADOL DRUG Active N/V 2021-09 Univers INGREDI 2-12 ity of 00:00: [place] [address] Medical Branch Tramadol Propensi Active Nausea 2021-09 Univer s ty to and/or 2-12 ity of adverse Vomiting 00:00: [place] reaction Medical s Branch morphine DA Active [facility] 10-05 00:00: [address] neomycin DA Active [facility] 10-05 00:00: [address] bacitrac DA Active [facility] in 10-05 00:00: [address] polymyxi DA Active [facility] n B 10-05 00:00: [address] morphine DA Active SV RESPIRATORY [facility] DISTRESS 10-05 00:00: [address] neomycin DA Active SV BLISTERS 2020- [facility] 10-05 00:00: [address] bacitrac DA Active SV BLISTERS 2020- [facility] in 10-05 00:00: [address] polymyxi DA Active SV BLISTERS [facility] n B 10-05 00:00: [address] CHOCOLAT DRUG Active N/V Univers E FLAVOR INGREDI 02-05 ity of 00:00: [address] Chocolat Propensi Active Nausea Reports Unive rs e Flavor ty to and/or 02-05 allergy ity of adverse Vomiting 00:00: to [place] reaction chocolate Medic [facility] morphine DA Active SV 2017-0 [facility] - 00:00: [address] neomycin DA Active SV 2017-0 [facility] 11-07 00:00: [address] bacitrac DA Active SV 2018-0 [facility] in 11-07 00:00: [address] polymyxi DA Active SV 2017-0 [facility] n B 11-07 00:00: [address] morphine DA Active SV RESPIRATORY 2017- [facility] DISTRESS 11-07 00:00: [address] neomycin DA Active SV BLISTERS 2017-0 [facility] 11-07 00:00: [address] bacitrac DA Active SV BLISTERS 2018-0 [facility] in 11-07 00:00: [address] polymyxi DA Active SV BLISTERS 2017-0 [facility] n B 11-07 00:00: [address] MORPHINE DRUG Active SOB 2016- Univers INGREDI 5-25 ity of 00:00: [address] Morphine Propensi Active Shortness of 2016- Throat Univers ty to Breath 5-25 swelling ity of adverse 00:00: [place] reaction 00 [facility] codeine codeine Active Memoria l Lead morphine morphine Active Memori a l [place] tramadol tramadol Active Unknown Commo n [facility] Social History Social Habit Start Date Stop Date Quantity Comments Source History of Tobacco Common Spirit - Use [facility] Sex Assigned At Common Sp waylon - [facility] Sexual orientation Univer sity of [facility] Exposure to 2022-11-22 2022-12-02 Not sure University of SARS-CoV-2 (event) 00:00:00 20:33:00 [facility] Tobacco Comment 2022-08-21 2022-08-21 Quit 40 years Univer sity of 00:00:00 00:00:00 ago [facility] Tobacco use and 2022-08-21 2022-08-21 Smokeless Universit y of exposure 00:00:00 00:00:00 tobacco non-user [facility] dical Dora History of Social 2022-08-21 2022-08-21 Univers ity of function 00:00:00 00:00:00 [facility] Social History 2019-03-07 2019-03-07 [facility] nirav 23:31:46 23:31:46 Smoking Status Start Date Stop Date Source Ex-smoker 2022-08-21 00:00:00 2022-08-21 00:00:00 Universi ty [facility] Medications Ordered Filled Start Stop Current Ordering Indication Dosage Frequency Signature Comments Components Source Medication Medication Date Date Medication? Clinician (SIG) Name Name Nitrofurant 2022-09- Yes [id number] 100mg Take 1 Univers oin&Nit. 09-20 capsule by ity of Macrocryst 00:00: 05:59 [place] (MACROBID[place] 00 :00 the Medical 100 mg morning Branch capsule and 1 capsule in the evening. Do all this for 7 days. cefdinir 2022-09- Yes [id number] 300mg Take 1 U nivers 300 mg 09-17 capsule by ity of capsule 00:00: 05:59 mouth [place] 00 :00 every 12 Medical (twelve) Branch hours for 7 days. cefdinir 2022-09- Yes [id number] 300mg Take 1 U nivers 300 mg 09-17 capsule by ity of capsule 00:00: 05:59 mouth [place] 00 :00 every 12 Medical (twelve) Branch hours for 7 days. furosemide 2022- No [id number] 40mg Take 1 Univers 40 mg 12-13 tablet by ity of tablet 00:00: 04:59 mouth in [place] 00 :00 the Medical morning Branch for 30 days. furosemide 2022-0 3- No [id number] 40mg Take 1 Univers 40 mg 3-31 05-01 tablet by ity of tablet 00:00: 04:59 mouth in [place] 00 :00 the Medical morning Branch for 30 days. furosemide 2022-0 3- No [id number] 80mg Take 1 Univers 80 mg 3-24 04-01 tablet by ity of tablet 00:00: 04:59 mouth in [place] 00 :00 the [facility] morning Branch for 7 days. furosemide 2022-0 3- No [id number] 80mg Take 1 Univers 80 mg 3-24 04-01 tablet by ity of tablet 00:00: 04:59 mouth in [place] 00 :00 the [facility] morning Branch for 7 days. CARVEDILOL 0 Yes 6.25mg Take 6.25 Univers ORAL 3-23 mg by ity of 16:57: mouth. [place] [address] Medical Branch isosorbide 2022-0 Yes 20mg Take 1 Unive rs dinitrate 3-23 tablet by ity o f 20 mg 16:57: mouth in [place] [address] the Medical morning Branch and 1 tablet in the evening. amLODIPine 0 Yes 5mg Take 1 Unive rs 5 mg tablet 3-23 tablet by ity of 16:57: mouth in [place] [address] the Medical morning. Branch warfarin 0 Yes Take by Univer s 2.5 mg 3-23 mouth. ity of tablet 16:57: [place] [address] Medical Branch Cranberry 2022-0 Yes 1{capsu Take 1 Uni vers 400 mg Cap 3-23 le} capsule by ity of 16:57: mouth in [place] [address] the Medical morning. Branch multivitami 0 Yes 1{tbl} Take 1 Un jie n/iron/foli 3-23 tablet by ity of c acid 16:57: mouth at [place] ([place] [address] bedtime. Medical COMPLETE Branch WITH IRON ORAL) Garlic 0 Yes 1{tbl} Take 1 Univers 1,000 mg 3-23 tablet by ity of Cap 16:57: mouth in [place] [address] the Medical morning. Branch ZINC 2022-0 Yes 25mg Take 25 mg Univers GLUCONATE 3-23 by mouth ity of ORAL 16:57: in the [place] [address] morning. Medical Branch MAGNESIUM 2023-0 Yes Apply to Univ ers SULFATE 3-23 area(s) ity of TOPICAL 16:57: daily. [place] [address] Medical Branch montelukast 0 Yes 10mg Take 1 Univ ers 10 mg 3-23 tablet by ity of tablet 16:57: mouth at [place] [address] bedtime. Medical Branch Budesonide Yes 1{puff} Inhale 1 Univers 180 3-23 Puff at ity of mcg/actuati 16:57: [place] aerosol 45 Medical powder Branch Potassium Yes 2{tbl} Take 2 Univ ers Gluconate 3-23 tablets by ity of 595 mg (99 16:57: mouth in [place] as mg) Tab 45 the Medical morning Branch and 2 tablets in the evening. aspirin 81 0 Yes 81mg Take 1 Unive rs mg chewable 3-23 tablet by ity of tablet 16:57: mouth in [place] 45 the Medical morning. Branch DOCOSAHEXAN Yes Take by Uni vers OIC 3-23 mouth. ity of ACID/EPA 16:57: [place] (FISH OIL 45 Medical ORAL) Branch ASCORBATE Yes Take by Unive rs CALCIUM 3-23 mouth. ity of (VITAMIN C 16:57: [place] ORAL) 45 Medical Branch VITAMIN B 0 Yes Take by Unive rs COMPLEX 3-23 mouth. ity of ORAL 16:57: [place] [address] Medical Branch glipiZIDE 5 0 Yes 5mg Take 1 Univ ers mg tablet 3-23 tablet by ity o f 16:57: mouth 2 [place] [address] (two) Medical times Branch daily before breakfast and dinner. CARVEDILOL 0 Yes 6.25mg Take 6.25 Univers ORAL 3-23 mg by ity of 16:57: mouth. [place] [address] Medical Branch isosorbide 0 Yes 20mg Take 1 Unive rs dinitrate 3-23 tablet by ity o f 20 mg 16:57: mouth in [facility] 45 the Medical morning Branch and 1 tablet in the evening. amLODIPine 0 Yes 5mg Take 1 Unive rs 5 mg tablet 3-23 tablet by ity of 16:57: mouth in [place] 45 the Medical morning. Branch warfarin 0 Yes Take by Univer s 2.5 mg 3-23 mouth. ity of tablet 16:57: [place] 45 Medical Branch Cranberry Yes 1{capsu Take 1 Uni vers 400 mg Cap 3-23 le} capsule by ity of 16:57: mouth in [place] 45 the Medical morning. Branch multivitami Yes 1{tbl} Take 1 Un jie n/iron/foli 3-23 tablet by ity of c acid 16:57: mouth at [place] ([facility] 45 bedtime. Medical COMPLETE Branch WITH IRON ORAL) Garlic Yes 1{tbl} Take 1 Univers 1,000 mg 3-23 tablet by ity of Cap 16:57: mouth in [place] 45 the Medical morning. Branch ZINC 0 Yes 25mg Take 25 mg Univers GLUCONATE 3-23 by mouth ity of ORAL 16:57: in the [place] [address] morning. Medical Branch MAGNESIUM Yes Apply to Univ ers SULFATE 3-23 area(s) ity of TOPICAL 16:57: daily. [place] [address] Medical Branch montelukast Yes 10mg Take 1 Univ ers 10 mg 3-23 tablet by ity of tablet 16:57: mouth at [place] [address] bedtime. Medical Branch Budesonide Yes 1{puff} Inhale 1 Univers 180 3-23 Puff at ity of mcg/actuati 16:57: bedtime. [place] aerosol 45 Medical powder Branch Potassium Yes 2{tbl} Take 2 Univ ers Gluconate 3-23 tablets by ity of 595 mg (99 16:57: mouth in [place] as mg) Tab 45 the Medical morning Branch and 2 tablets in the evening. aspirin 81 Yes 81mg Take 1 Unive rs mg chewable 3-23 tablet by ity of tablet 16:57: mouth in [place] 45 the Medical morning. Branch DOCOSAHEXAN Yes Take by Uni vers OIC 3-23 mouth. ity of ACID/EPA 16:57: [place] (FISH OIL 45 Medical ORAL) Branch ASCORBATE 0 Yes Take by Unive rs CALCIUM 3-23 mouth. ity of (VITAMIN C 16:57: [place] ORAL) 45 Medical Branch VITAMIN B 0 Yes Take by Unive rs COMPLEX 3-23 mouth. ity of ORAL 16:57: [place] [address] Medical Branch glipiZIDE 5 0 Yes 5mg Take 1 Univ ers mg tablet 3-23 tablet by ity o f 16:57: mouth 2 [place] [address] (two) Medical times Branch daily before breakfast and dinner. CARVEDILOL Yes 6.25mg Take 6.25 Univers ORAL 3-23 mg by ity of 16:57: mouth. [place] [address] Medical Branch isosorbide 0 Yes 20mg Take 1 Unive rs dinitrate 3-23 tablet by ity o f 20 mg 16:57: mouth in [facility] 45 the Medical morning Branch and 1 tablet in the evening. amLODIPine Yes 5mg Take 1 Unive rs 5 mg tablet 3-23 tablet by ity of 16:57: mouth in [place] [address] the Medical morning. Branch warfarin Yes Take by Univer s 2.5 mg 3-23 mouth. ity of tablet 16:57: [place] [address] Medical Branch Cranberry Yes 1{capsu Take 1 Uni vers 400 mg Cap 3-23 le} capsule by ity of 16:57: mouth in [place] [address] the Medical morning. Branch multivitami Yes 1{tbl} Take 1 Un jie n/iron/foli 3-23 tablet by ity of c acid 16:57: mouth at [place] ([place] [address] bedtime. Medical COMPLETE Branch WITH IRON ORAL) Garlic Yes 1{tbl} Take 1 Univers 1,000 mg 3-23 tablet by ity of Cap 16:57: mouth in [place] [address] the Medical morning. Branch ZINC Yes 25mg Take 25 mg Univers GLUCONATE 3-23 by mouth ity of ORAL 16:57: in the [place] [address] morning. Medical Branch MAGNESIUM Yes Apply to Univ ers SULFATE 3-23 area(s) ity of TOPICAL 16:57: daily. [place] [address] Medical Branch montelukast 0 Yes 10mg Take 1 Univ ers 10 mg 3-23 tablet by ity of tablet 16:57: mouth at [place] [address] bedtime. Medical Branch Budesonide Yes 1{puff} Inhale 1 Univers 180 3-23 Puff at ity of mcg/actuati 16:57: [place] aerosol 45 Medical powder Branch Potassium 0 Yes 2{tbl} Take 2 Univ ers Gluconate 3-23 tablets by ity of 595 mg (99 16:57: mouth in [place] as mg) Tab 45 the Medical morning Branch and 2 tablets in the evening. aspirin 81 0 Yes 81mg Take 1 Unive rs mg chewable 3-23 tablet by ity of tablet 16:57: mouth in [place] [address] the Medical morning. Branch DOCOSAHEXAN 0 Yes Take by Uni vers OIC 3-23 mouth. ity of ACID/EPA 16:57: [place] (FISH OIL 45 Medical ORAL) Branch ASCORBATE 0 Yes Take by Unive rs CALCIUM 3-23 mouth. ity of (VITAMIN C 16:57: [place] ORAL) 45 Medical Branch VITAMIN B 0 Yes Take by Unive rs COMPLEX 3-23 mouth. ity of ORAL 16:57: [place] [address] Medical Branch glipiZIDE 5 0 Yes 5mg Take 1 Univ ers mg tablet 3-23 tablet by ity o f 16:57: mouth 2 [place] [address] (two) Medical times Branch daily before breakfast and dinner. CARVEDILOL 0 Yes 6.25mg Take 6.25 Univers ORAL 3-23 mg by ity of 16:57: mouth. [place] [address] Medical Branch isosorbide 0 Yes 20mg Take 1 Unive rs dinitrate 3-23 tablet by ity o f 20 mg 16:57: mouth in [place] tablet 45 the Medical morning Branch and 1 tablet in the evening. amLODIPine 0 Yes 5mg Take 1 Unive rs 5 mg tablet 3-23 tablet by ity of 16:57: mouth in [place] [address] the Medical morning. Branch warfarin Yes Take by Univer s 2.5 mg 3-23 mouth. ity of tablet 16:57: [place] [address] Medical Branch Cranberry 0 Yes 1{capsu Take 1 Uni vers 400 mg Cap 3-23 le} capsule by ity of 16:57: mouth in [place] [address] the Medical morning. Branch multivitami 0 Yes 1{tbl} Take 1 Un jie n/iron/foli 3-23 tablet by ity of c acid 16:57: mouth at [place] ([facility] 45 bedtime. Medical COMPLETE Branch WITH IRON ORAL) Garlic 0 Yes 1{tbl} Take 1 Univers 1,000 mg 3-23 tablet by ity of Cap 16:57: mouth in [place] [address] the Medical morning. Branch ZINC 0 Yes 25mg Take 25 mg Univers GLUCONATE 3-23 by mouth ity of ORAL 16:57: in the [place] [address] morning. Medical Branch MAGNESIUM 0 Yes Apply to Univ ers SULFATE 3-23 area(s) ity of TOPICAL 16:57: daily. [place] [address] Medical Branch montelukast 0 Yes 10mg Take 1 Univ ers 10 mg 3-23 tablet by ity of tablet 16:57: mouth at [place] [address] bedtime. Medical Branch Budesonide 0 Yes 1{puff} Inhale 1 Univers 180 3-23 Puff at ity of mcg/actuati 16:57: [place] aerosol 45 Medical powder Branch Potassium 0 Yes 2{tbl} Take 2 Univ ers Gluconate 3-23 tablets by ity of 595 mg (99 16:57: mouth in [facility] as mg) Tab 45 the Medical morning Branch and 2 tablets in the evening. aspirin 81 0 Yes 81mg Take 1 Unive rs mg chewable 3-23 tablet by ity of tablet 16:57: mouth in [place] [address] the Medical morning. Branch DOCOSAHEXAN Yes Take by Uni vers OIC 3-23 mouth. ity of ACID/EPA 16:57: [place] (FISH OIL 45 Medical ORAL) Branch ASCORBATE 0 Yes Take by Unive rs CALCIUM 3-23 mouth. ity of (VITAMIN C 16:57: [place] ORAL) Medical Branch VITAMIN B 0 Yes Take by Unive rs COMPLEX 3-23 mouth. ity of ORAL 16:57: [place] [address] Medical Branch glipiZIDE 5 2022-0 Yes 5mg Take 1 Univ ers mg tablet 3-23 tablet by ity o f 16:57: mouth 2 [place] [address] (two) Medical times Branch daily before breakfast and dinner. CARVEDILOL 0 Yes 6.25mg Take 6.25 Univers ORAL 3-23 mg by ity of 16:57: mouth. [place] [address] Medical Branch isosorbide 2022-0 Yes 20mg Take 1 Unive rs dinitrate 3-23 tablet by ity o f 20 mg 16:57: mouth in [facility] 45 the Medical morning Branch and 1 tablet in the evening. amLODIPine 2023-0 Yes 5mg Take 1 Unive rs 5 mg tablet 3-23 tablet by ity of 16:57: mouth in [place] [address] the Medical morning. Branch warfarin Yes Take by Univer s 2.5 mg 3-23 mouth. ity of tablet 16:57: [place] [address] Medical Branch Cranberry Yes 1{capsu Take 1 Uni vers 400 mg Cap 3-23 le} capsule by ity of 16:57: mouth in [place] [address] the Medical morning. Branch multivitami Yes 1{tbl} Take 1 Un jie n/iron/foli 3-23 tablet by ity of c acid 16:57: mouth at [place] ([facility] 45 bedtime. Medical COMPLETE Branch WITH IRON ORAL) Garlic Yes 1{tbl} Take 1 [facility] 1,000 mg 3-23 tablet by ity of Cap 16:57: mouth in [place] [address] the Medical morning. Branch ZINC Yes 25mg Take 25 mg Univers GLUCONATE 3-23 by mouth ity of ORAL 16:57: in the [place] [address] morning. Medical Branch MAGNESIUM Yes Apply to Univ ers SULFATE 3-23 area(s) ity of TOPICAL 16:57: daily. [place] [address] Medical Branch montelukast Yes 10mg Take 1 Univ ers 10 mg 3-23 tablet by ity of tablet 16:57: mouth at [place] [address] bedtime. Medical Branch Budesonide Yes 1{puff} Inhale 1 Univers 180 3-23 Puff at ity of mcg/actuati 16:57: bedtime. [place] on aerosol 45 Medical powder Branch Potassium Yes 2{tbl} Take 2 Univ ers Gluconate 3-23 tablets by ity of 595 mg (99 16:57: mouth in [facility] as mg) Tab 45 the Medical morning Branch and 2 tablets in the evening. aspirin 81 Yes 81mg Take 1 Unive rs mg chewable 3-23 tablet by ity of tablet 16:57: mouth in [place] 45 the Medical morning. Branch DOCOSAHEXAN Yes Take by Uni vers OIC 3-23 mouth. ity of ACID/EPA 16:57: [place] (FISH OIL 45 Medical ORAL) Branch ASCORBATE 0 Yes Take by Unive rs CALCIUM 3-23 mouth. ity of (VITAMIN C 16:57: [place] ORAL) 45 Medical Branch VITAMIN B Yes Take by Unive rs COMPLEX 12-05 mouth. ity of ORAL 16:57: [place] 45 Medical Branch glipiZIDE 5 Yes 5mg Take 1 Univ ers mg tablet 12-05 tablet by ity o f 16:57: mouth 2 [place] 45 (two) Medical times Branch daily before breakfast and dinner. ergocalcife 2022- No 5000U Take 5,000 Univers rol, 12-05 Units by ity of vitamin D2, 15:02: 00:00 mouth in [place] (VITAMIN D 31 :00 the Medical ORAL) morning. Branch furosemide 2022- No 40mg Take 1 Univ ers 40 mg 12-05 tablet by ity of tablet 15:02: 00:00 mouth in [place] 12 :00 the Medical morning. Branch furosemide Yes 80mg 80 mg, Unive rs (LASIX) 12-05 Oral, ity of tablet 80 14:00: DAILY, [place] mg 00 First dose Medical (after Branch last modificati on) on Fri12/05/22 at 0900, Until Discontinu ed, Routine levoFLOXaci 2022- No [id number] 750mg Take 1 Univers n 750 mg 12-05 tablet by ity o f tablet 00:00: 04:59 mouth [place] 00 :00 every 24 Medical (twenty-fo Branch ur) hours for 4 days. levoFLOXaci 2022- No [id number] 750mg Take 1 Univers n 750 mg 12-05 tablet by ity o f tablet 00:00: 04:59 mouth [place] 00 :00 every 24 Medical (twenty-fo Branch ur) hours for 4 days. warfarin Yes 2.5mg 2.5 mg, Unive rs (COUMADIN) 12-04 Oral, ity of tablet 2.5 22:00: DAILY AT [place] as mg 00 1700, Medical First dose Branch on Fri12/04/22 at 1700, Until Discontinu ed, Routine
INR Goal Range: 2-3
IND ICATION (More than one indication for warfarin can be selected): Atrial fibrillati on/flutter sulfur 0 2022- No [id number] 5mL 5 mL, Univ ers hexafluorid 12-04 Intravenou i ty of e microsphr 15:45: 15:45 s, ONCE, 1 [place] (LUMASON) 00 :00 dose, On Medica l injection 5 Fri mL 12/04/22 at 1045, Routine
membership sales manager approving Restricted medication : PURAROBERTO furosemide 0 2022- No 40mg 40 mg, Univ ers (LASIX) 12-04 Oral, ity of tablet 40 15:00: 17:32 ONCE, 1 [place] mg 00 :00 dose, On Medical Fri12/04/22 at 1000, Routine amLODIPine 0 Yes 5mg 5 mg, Univer s (NORVASC) 12-04 Oral, ity of tablet 5 mg 14:00: DAILY, [place] 00 First dose Medical on Fri12/04/22 at 0900, Until Discontinu ed, Routine furosemide 2022- No 40mg 40 mg, Univ ers (LASIX) 12-04 Oral, ity of tablet 40 14:00: 14:05 DAILY, [place] mg 00 :08 First dose Medical on Fri12/04/22 at 0900, Until Discontinu ed, Routine carvediloL Yes 6.25mg 6.25 mg, U nivers (COREG) 12-04 Oral, BID ity of tablet 6.25 13:00: MEALS, [place] mg 00 First dose Medical on Fri [place] 12/04/22 at 0800, Until Discontinu ed montelukast 0 Yes 10mg 10 mg, Univ ers (SINGULAIR) 12-04 Oral, QHS, it y of tablet 10 02:00: First dose [place] mg 00 on [facility] 12/03/22 at Branch 2100, Until Discontinu ed, Routine budesonide 0 Yes .25mg 0.25 mg, Un jie (PULMICORT 12-04 Inhalation ity of RESPULE) 02:00: , QHS, [place] nebulizer 00 First dose Medi [place] solution on Fri 0.25 mg 12/03/22 at 2100, Until Discontinu ed isosorbide 0 Yes 20mg 20 mg, Unive rs dinitrate 12-04 Oral, BID, ity of (ISORDIL) 01:00: First dose [place] tablet 20 00 on Fri Medical mg 12/03/22 at Branch 1999, Until Discontinu ed, Routine azithromyci 2022- No 250mg 250 mg, U nivers n 12-04 Oral, Q24H ity of (ZITHROMAX) 01:00: 00:59 ABX, 4 [place] tablet 250 00 :00 doses, Medical mg First dose Branch on Fri12/03/22 at 1999, Last dose on Fri12/06/22 at 1999, Routine
Reason for Anti-Infec tive: Documented Infection< br>Documen dewayne Infection Site: Respirator y
Durat ion of Therapy: Other (see Comments) cefTRIAXone No 1000mg 1,000 mg, Univers (ROCEPHIN) 12-03 IV ity of 1,000 mg in 23:00: 22:59 Piggyback, [place] NaCl 0.9% 00 :00 Q24H ABX, Medic al (NS) 100 mL 5 doses, Bran ch MINI-BAG First dose (after last reorder) on Fri12/03/22 at 1800, Last dose on Fri12/07/22 at 1800, Administer over 30 Minutes, 100 mL
Reas on for Anti-Infec tive: Documented Infection< br>Documen dewayne Infection Site: Respirator y
Durat ion of Therapy: Other (see Comments) glipiZIDE Yes 5mg 5 mg, Univers (GLUCOTROL) 12-03 Oral, ity of tablet 5 mg 14:00: DAILY, [place] 00 First dose Medical on Fri12/03/22 at 0900, Until Discontinu ed, Routine aspirin Yes 81mg 81 mg, Univers chewable 12-03 Oral, ity of tablet 81 14:00: DAILY, [place] mg 00 First dose Medical on Fri12/03/22 at 0900, Until Discontinu ed, Routine Sliding Yes Subcutaneo Univ ers Scale 3-21 us, AC+HS, ity of Insulin-Reg 12:30: First dose [place] ular + Fsbg 00 on Fri Medica l Testing 12/03/22 at Branch 0730, Until Discontinu ed, Routine levothyroxi 2022- Yes 112ug 112 mcg, U nivers ne 12-03 Oral, ity of (SYNTHROID) 11:00: QAM-0600, [place] tablet 112 00 First dose Med ical mcg on Fri Branch 12/03/22 at 0600, Until Discontinu ed dextrose 2022-0 Yes 250mL 250 mL, IV Un jie 10% (D10W) 12-03 Infusion, ity of bolus 05:11: PRN - SEE [place] infusion 41 INSTRUCTIO Medic al 250 mL NS, Branch Administer over 60 Minutes, Other, If blood glucose is < or = 70 mg/dL and patient is unable to swallow or has mental status changes, Starting on Fri12/03/22 at 0011
If blood glucose is < or = 70 mg/dL and patient is unable to swallow or has mental status changes (Give glucagon order if patient needs fluid restrictio n): IF IV access available: Dextrose 10%. 1. 125 mL (? bag) of D10W IV infusion - equivalent to 12.5 g dextrose 2. Blood glucose - draw blood glucose 15 minutes after D10W Administra tion. 3. If blood glucose is < 80 mg/dL, repeat.
glucagon Yes 1mg 1 mg, Univers (GLUCAGEN 12-03 Intramuscu ity of DIAGNOSTIC 05:11: lar, PRN, [place] KIT) 37 Starting Medical injection 1 on Fri Branch mg 12/03/22 at 0011, Until Discontinu ed, RAJENDRA, Blood Glucose < or = 70 mg/dL and patient is NPO, unable to swallow or has mental changes. codeine-gua 2022-0 Yes 5mL 5 mL, Unive rs ifenesin 12-03 Oral, ity of (ROBITUSSIN 03:28: Q6HPRN, [place] AC) 10-100 15 Starting Medic al mg/5 mL on Fri Branch oral 12/02/22 at solution 5 2228, mL Until Discontinu ed, Routine, Cough heparin 2023-0 2023- No 5000U 5,000 Univers (porcine) 12-03 Units, ity of injection 03:00: 15:53 Subcutaneo [place] 5,000 Units 00 :38 us, Q8H, [place]i [place] First dose Branch on 12/02/22 at 2200, Until Discontinu ed, Routine acetaminoph 2022- No [id number] 1{tbl} 1 tablet, Univers en-codeine 12-03 Oral, ity of (TYLENOL 02:09: 16:50 Q4HPRN, [place] #3) 300-30 06 :42 Starting Medic al mg tablet 1 on Mon Branch tablet 12/02/22 at 2109, Until 12/04/22 at 1150, Routine, Pain (scale 4-6) acetaminoph Yes 650mg 650 mg, Un jie en 12-03 Oral, ity of (TYLENOL) 00:31: Q6HPRN, [place] tablet 650 22 Starting Medic al mg on Mon Branch 12/02/22 at 1931, Until Discontinu ed, Routine, Pain (scale 1-3) azithromyci 2022- No 500mg 500 mg, IV Univers n 12-03 Piggyback, ity of (ZITHROMAX) 00:15: 02:08 ONCE, 1 [place] 500 mg in 00 :00 dose, On Medica l NaCl 0.9% Mon Branch (NS) 250 mL 12/02/22 at VIAL-MATE 1915, IV Administer piggyback over 60 Minutes, 250 mL
R abdirahman for Anti-Infec tive: Documented Infection< br>Documen dewayne Infection Site: Respirator y
Du ration of Therapy: Other (see Comments) cefTRIAXone No 1000mg 1,000 mg, Univers (ROCEPHIN) 12-02 IV ity of 1,000 mg in 23:30: 00:42 Piggyback, [place] NaCl 0.9% 00 :00 ONCE, 1 Medical (NS) 100 mL dose, On Bran ch MINI-BAG 12/02/22 at 1830, Administer over 30 Minutes, 100 mL
Reas on for Anti-Infec tive: Documented Infection< br>Documen dewayne Infection Site: Respirator y
Du ration of Therapy: Other (see Comments) montelukast Yes 10mg Take 1 Univ ers 10 mg 3-20 tablet by ity of tablet 22:21: mouth at [place] 09 bedtime. Medical Branch Budesonide Yes 1{puff} Inhale 1 Univers 180 3-20 Puff at ity of mcg/actuati 22:21: [place]time. [place] on aerosol Medical powder Branch Potassium Yes 2{tbl} Take 2 Univ ers Gluconate 3-20 tablets by ity of 595 mg (99 22:21: mouth in [place] mg) Tab 09 the Medical morning Branch and 2 tablets in the evening. aspirin 81 Yes 81mg Take 1 Unive rs mg chewable 3-20 tablet by ity of tablet 22:21: mouth in [place] 09 the Medical morning. Branch DOCOSAHEXAN Yes Take by Uni vers OIC 3-20 mouth. ity of ACID/EPA 22:21: [place] (FISH OIL 09 Medical ORAL) Branch ASCORBATE Yes Take by Unive rs CALCIUM 3-20 mouth. ity of (VITAMIN C 22:21: [place] ORAL) 09 Medical Branch VITAMIN B Yes Take by Univ ers COMPLEX 3-20 mouth. ity of ORAL 22:21: Medical Branch glipiZIDE 5 Yes 5mg Take 1 Univ ers mg tablet 3-20 tablet by ity o f 22:21: mouth 2 (two) Medical times Branch daily before breakfast and dinner. CARVEDILOL Yes 6.25mg Take 6.25 Univers ORAL 3-20 mg by ity of 22:21: mouth. Medical Branch MAGNESIUM 2022- No 200mg Take 200 [facility] jie OXIDE ORAL 3-20 03-20 mg by ity of 21:11: 00:00 mouth at [place] 13 :00 bedtime. Medical Branch MAGNESIUM 2022-0 2022- No 200mg Take 200 [place] OXIDE ORAL 3-20 03-20 mg by ity of 21:11: 00:00 mouth at [place] 13 :00 bedtime. Medical Branch sulfamethox 2022- No [id number] 1{tbl} Univers azole-trime 09-20 ity of thoprim 22:45: 21:46 [place] (BACTRIM 00 :00 Medical DS) 800-160 Branch mg per tablet 1 tablet sulfamethox 2022- No [id number] 1{tbl} 1 tablet, Univers azole-trime 09-20 Oral, ity of thoprim 22:45: 21:46 ONCE, 1 [place] (BACTRIM 00 :00 dose, On Medical DS) 800-160 09/20/22 Br anch mg per at 1645, tablet 1 RAJENDRA
Re tablet ason for Anti-Infec tive: Surgical Prophylaxi s
[place] Prophylaxi s: Genitourin kinza
Dur ation of therapy: within 24 hours of surgery sulfamethox 2022- No [id number] 1{tbl} [facility] azole-trime 09-20 ity of thoprim 22:45: 21:46 [place] (BACTRIM 00 :00 Medical DS) 800-160 Branch mg per tablet 1 tablet sulfamethox 2022- No [id number] 1{tbl} 1 tablet, [facility] azole-trime 09-20 Oral, ity of thoprim 22:45: 21:46 ONCE, 1 [place] (BACTRIM 00 :00 dose, On Medical DS) 800-160 09/20/22 Br anch mg per at 1645, tablet 1 RAJENDRA
Re tablet ason for Anti-Infec tive: Surgical Prophylaxi s
[place] Prophylaxi s: Genitourin kinza
Dur ation of therapy: within 24 hours of surgery sulfamethox 2022- No [id number] 1{tbl} [facility] azole-trime 09-20 ity of thoprim 22:30: 21:45 [place] (BACTRIM 00 :24 Medical SS) 400-80 Branch mg per tablet 1 tablet sulfamethox 2022- No [id number] 1{tbl} [facility] azole-trime 09-20 ity of thoprim 22:30: 21:45 [place] (BACTRIM 00 :24 Medical SS) 400-80 Branch mg per tablet 1 tablet estradioL 2021-09 Yes [id number] Apply 1g Univers 0.01 % (0.1 2-15 vaginally ity of mg/gram) 00:00: at bedtime [place] vaginal 00 every Medical cream night for Branch 2 weeks and then apply 1g vaginally at bedtime 2 times per week estradioL 2021-09 Yes [id number] Apply 1g Univers 0.01 % (0.1 2-15 vaginally ity of mg/gram) 00:00: at bedtime [place] vaginal 00 every Medical cream night for Branch 2 weeks and then apply 1g vaginally at bedtime 2 times per week estradioL 2021-09 Yes [id number] Apply 1g Univers 0.01 % (0.1 2-15 vaginally ity of mg/gram) 00:00: at bedtime [place] vaginal 00 every Medical cream night for Branch 2 weeks and then apply 1g vaginally at bedtime 2 times per week estradioL 2021-09 Yes [id number] Apply 1g Univers 0.01 % (0.1 2-15 vaginally ity of mg/gram) 00:00: at bedtime [place] vaginal 00 every Medical cream night for Branch 2 weeks and then apply 1g vaginally at bedtime 2 times per week estradioL 2021-09 Yes [id number] Apply 1g Univers 0.01 % (0.1 2-15 vaginally ity of mg/gram) 00:00: at bedtime [place] vaginal 00 every Medical cream night for Branch 2 weeks and then apply 1g vaginally at bedtime 2 times per week estradioL 2021-09 Yes [id number] Apply 1g Univers 0.01 % (0.1 2-15 vaginally ity of mg/gram) 00:00: at bedtime [place] vaginal 00 every Medical cream night for Branch 2 weeks and then apply 1g vaginally at bedtime 2 times per week estradioL 2021-09 Yes [id number] Apply 1g Univers 0.01 % (0.1 2-15 vaginally ity of mg/gram) 00:00: at bedtime [place] vaginal 00 every Medical cream night for Branch 2 weeks and then apply 1g vaginally at bedtime 2 times per week estradioL 2021-09 Yes [id number] Apply 1g Univers 0.01 % (0.1 2-15 vaginally ity of mg/gram) 00:00: at bedtime [place] vaginal 00 every Medical cream night for Branch 2 weeks and then apply 1g vaginally at bedtime 2 times per week estradioL 2021-09 Yes [id number] Apply 1g Univers 0.01 % (0.1 2-15 vaginally ity of mg/gram) 00:00: at bedtime [place] vaginal 00 every Medical cream night for Branch 2 weeks and then apply 1g vaginally at bedtime 2 times per week estradioL 2021-09 Yes [id number] Apply 1g Univers 0.01 % (0.1 2-15 vaginally ity of mg/gram) 00:00: at bedtime [place] vaginal 00 every Medical cream night for Branch 2 weeks and then apply 1g vaginally at bedtime 2 times per week estradioL 2021-09 Yes [id number] Apply 1g Univers 0.01 % (0.1 2-15 vaginally ity of mg/gram) 00:00: at bedtime [place] vaginal 00 every Medical cream night for Branch 2 weeks and then apply 1g vaginally at bedtime 2 times per week estradioL 2021-09 Yes [id number] Apply 1g Univers 0.01 % (0.1 2-15 vaginally ity of mg/gram) 00:00: at bedtime [place] vaginal 00 every Medical cream night for Branch 2 weeks and then apply 1g vaginally at bedtime 2 times per week estradioL 2021-09 Yes [id number] Apply 1g Univers 0.01 % (0.1 2-15 vaginally ity of mg/gram) 00:00: at bedtime [place] vaginal 00 every Medical cream night for Branch 2 weeks and then apply 1g vaginally at bedtime 2 times per week estradioL 2021-09 Yes [id number] Apply 1g Univers 0.01 % (0.1 2-15 vaginally ity of mg/gram) 00:00: at bedtime [place] vaginal 00 every Medical cream night for Branch 2 weeks and then apply 1g vaginally at bedtime 2 times per week estradioL 2021-09 Yes [id number] Apply 1g Univers 0.01 % (0.1 2-15 vaginally ity of mg/gram) 00:00: at bedtime [place] vaginal 00 every Medical cream night for Branch 2 weeks and then apply 1g vaginally at bedtime 2 times per week estradioL 2021-09 Yes [id number] Apply 1g Univers 0.01 % (0.1 2-15 vaginally ity of mg/gram) 00:00: at bedtime [place] vaginal 00 every Medical cream night for Branch 2 weeks and then apply 1g vaginally at bedtime 2 times per week estradioL 2021-09 Yes [id number] Apply 1g Univers 0.01 % (0.1 2-15 vaginally ity of mg/gram) 00:00: at bedtime [place] vaginal 00 every Medical cream night for Branch 2 weeks and then apply 1g vaginally at bedtime 2 times per week CARVEDILOL 2021-09 Yes Take by [facility] ORAL 2-12 mouth. ity of 14:16: [address] CARVEDILOL 2021-09 Yes Take by [facility] ORAL 2-12 mouth. ity of 14:16: [address] CARVEDILOL 2021-09 Yes Take by [facility] ORAL 2-12 mouth. ity of 14:16: [address] CARVEDILOL 2021-09 Yes Take by [facility] ORAL 2-12 mouth. ity of 14:16: [address] CARVEDILOL 2021-09 Yes Take by [facility] ORAL 2-12 mouth. ity of 14:16: [address] CARVEDILOL 2021-09 Yes Take by [facility] ORAL 2-12 mouth. ity of 14:16: [address] CARVEDILOL 2021-09 Yes Take by [facility] ORAL 2-12 mouth. ity of 14:16: [address] CARVEDILOL 2021-09 Yes Take by [facility] ORAL 2-12 mouth. ity of 14:16: [address] CARVEDILOL 2021-09 Yes Take by [facility] ORAL 2-12 mouth. ity of 14:16: [address] CARVEDILOL 2021-09 Yes Take by [facility] ORAL 2-12 mouth. ity of 14:16: [address] CARVEDILOL 2021-09 Yes Take by [facility] ORAL 2-12 mouth. ity of 14:16: [address] montelukast 2021-09 Yes 10mg Take 10 mg Univers 10 mg 2-12 by mouth ity of tablet 14:11: at [place] 57 bedtime. Medical Branch Budesonide 2021-09 Yes 1{puff} Inhale 1 Univers 180 2-12 Puff at ity of mcg/actuati 14:11: bedtime. [place] on aerosol 57 Medical powder Branch Potassium 2021-09 Yes 1{tbl} Take 1 Univ ers Gluconate 2-12 tablet by ity o f 595 mg (99 14:11: mouth 2 [place] mg) Tab 57 (two) Medical times Branch daily. MAGNESIUM 2021-09 Yes 200mg Take 200 Uni vers OXIDE ORAL 2-12 mg by ity of 14:11: mouth at [place] [address] bedtime. Medical Branch aspirin 81 2021-09 Yes 81mg Take 81 mg U nivers mg chewable 2-12 by mouth ity of tablet 14:11: daily. [place] [address] Medical Branch DOCOSAHEXAN 2021-09 Yes Take by Uni vers OIC 2-12 mouth. ity of ACID/EPA 14:11: [place] (FISH OIL 57 Medical ORAL) [place] ASCORBATE 2021-09 Yes Take by Unive rs CALCIUM 2-12 mouth. ity of (VITAMIN C 14:11: [place] ORAL) Medical Branch VITAMIN B 2021-09 Yes Take by Unive rs COMPLEX 2-12 mouth. ity of ORAL 14:11: [address] Branch glipiZIDE 5 2021-09 Yes 5mg Take 5 mg U nivers mg tablet 2-12 by mouth ity of 14:11: daily. [place] [address] Medical Branch montelukast 2021-09 Yes 10mg Take 10 mg Univers 10 mg 2-12 by mouth ity of tablet 14:11: at [place] [address] bedtime. Medical Branch Budesonide 2021-09 Yes 1{puff} Inhale 1 Univers 180 2-12 Puff at ity of mcg/actuati 14:11: bedtime. [place] on aerosol 57 Medical powder Branch Potassium 2021-09 Yes 1{tbl} Take 1 Univ ers Gluconate 2-12 tablet by ity o f 595 mg (99 14:11: mouth 2 [place] mg) Tab 57 (two) Medical times Branch daily. MAGNESIUM 2021-09 Yes 200mg Take 200 Uni vers OXIDE ORAL 2-12 mg by ity of 14:11: mouth at [place] [address] bedtime. Medical Branch aspirin 81 2021-09 Yes 81mg Take 81 mg U nivers mg chewable 2-12 by mouth ity of tablet 14:11: daily. [place] [address] Medical Branch DOCOSAHEXAN 2021-09 Yes Take by Uni vers OIC 2-12 mouth. ity of ACID/EPA 14:11: [place] (FISH OIL 57 Medical ORAL) Branch ASCORBATE 2021-09 Yes Take by Unive rs CALCIUM 2-12 mouth. ity of (VITAMIN C 14:11: [place] ORAL) Medical Branch VITAMIN B 2021-09 Yes Take by Unive rs COMPLEX 2-12 mouth. ity of ORAL 14:11: [address] Branch glipiZIDE 5 2021-09 Yes 5mg Take 5 mg U nivers mg tablet 2-12 by mouth ity of 14:11: daily. [address] Branch montelukast 2021-09 Yes 10mg Take 10 mg Univers 10 mg 2-12 by mouth ity of tablet 14:11: at [place] [address] bedtime. Medical Branch Budesonide 2021-09 Yes 1{puff} Inhale 1 Univers 180 2-12 Puff at ity of mcg/actuati 14:11: bedtime. [place] on aerosol Medical powder Branch Potassium 2021-09 Yes 1{tbl} Take 1 Univ ers Gluconate 2-12 tablet by ity o f 595 mg (99 14:11: mouth 2 [place] mg) Tab 57 (two) Medical times Branch daily. MAGNESIUM 2021-09 Yes 200mg Take 200 Uni vers OXIDE ORAL 2-12 mg by ity of 14:11: mouth at [place] [address] bedtime. Medical Branch aspirin 81 2021-09 Yes 81mg Take 81 mg U nivers mg chewable 2-12 by mouth ity of tablet 14:11: daily. [address] Branch DOCOSAHEXAN 2021-09 Yes Take by Uni vers OIC 2-12 mouth. ity of ACID/EPA 14:11: [place] (FISH OIL 57 Medical ORAL) Branch ASCORBATE 2021-09 Yes Take by Unive rs CALCIUM 2-12 mouth. ity of (VITAMIN C 14:11: [place] ORAL) Medical Branch VITAMIN B 2021-09 Yes Take by Unive rs COMPLEX 2-12 mouth. ity of ORAL 14:11: [address] Branch glipiZIDE 5 2021-09 Yes 5mg Take 5 mg U nivers mg tablet 2-12 by mouth ity of 14:11: daily. [address] Branch montelukast 2021-09 Yes 10mg Take 10 mg Univers 10 mg 2-12 by mouth ity of tablet 14:11: at [place] [address] bedtime. Medical Branch Budesonide 2021-09 Yes 1{puff} Inhale 1 [facility] 180 2-12 Puff at ity of mcg/actuati 14:11: bedtime. [place] on aerosol 57 Medical powder Branch Potassium 2021-09 Yes 1{tbl} Take 1 Univ ers Gluconate 2-12 tablet by ity o f 595 mg (99 14:11: mouth 2 [place] mg) Tab 57 (two) Medical times Branch daily. MAGNESIUM 2021-09 Yes 200mg Take 200 Uni vers OXIDE ORAL 2-12 mg by ity of 14:11: mouth at [place] [address] bedtime. Medical Branch aspirin 81 2021-09 Yes 81mg Take 81 mg U nivers mg chewable 2-12 by mouth ity of tablet 14:11: daily. [place] [address] Medical Branch DOCOSAHEXAN 2021-09 Yes Take by Uni vers OIC 2-12 mouth. ity of ACID/EPA 14:11: [place] (FISH OIL 57 Medical ORAL) [place] ASCORBATE 2021-09 Yes Take by Unive rs CALCIUM 2-12 mouth. ity of (VITAMIN C 14:11: [place] ORAL) Medical Branch VITAMIN B 2021-09 Yes Take by Unive rs COMPLEX 2-12 mouth. ity of ORAL 14:11: [address] Branch glipiZIDE 5 2021-09 Yes 5mg Take 5 mg U nivers mg tablet 2-12 by mouth ity of 14:11: daily. [place] [address] Medical Branch montelukast 2021-09 Yes 10mg Take 10 mg Univers 10 mg 2-12 by mouth ity of tablet 14:11: at [place] [address] bedtime. Medical Branch Budesonide 2021-09 Yes 1{puff} Inhale 1 Univers 180 2-12 Puff at ity of mcg/actuati 14:11: bedtime. [place] on aerosol 57 Medical powder Branch Potassium 2021-09 Yes 1{tbl} Take 1 Univ ers Gluconate 2-12 tablet by ity o f 595 mg (99 14:11: mouth 2 [place] mg) Tab 57 (two) Medical times Branch daily. MAGNESIUM 2021-09 Yes 200mg Take 200 Uni vers OXIDE ORAL 2-12 mg by ity of 14:11: mouth at [place] [address] bedtime. Medical Branch aspirin 81 2022-1 Yes 81mg Take 81 mg U nivers mg chewable 2-12 by mouth ity of tablet 14:11: daily. [place] [address] Medical Branch DOCOSAHEXAN 2021-09 Yes Take by Uni vers OIC 2-12 mouth. ity of ACID/EPA 14:11: [place] (FISH OIL 57 Medical ORAL) Branch ASCORBATE 2021-09 Yes Take by Unive rs CALCIUM 2-12 mouth. ity of (VITAMIN C 14:11: [place] ORAL) Medical Branch VITAMIN B 2021-09 Yes Take by Unive rs COMPLEX 2-12 mouth. ity of ORAL 14:11: [place] [address] Medical Branch glipiZIDE 5 2021-09 Yes 5mg Take 5 mg U nivers mg tablet 2-12 by mouth ity of 14:11: daily. [place] [address] Medical Branch montelukast 2021-09 Yes 10mg Take 10 mg Univers 10 mg 2-12 by mouth ity of tablet 14:11: at [place] [address] bedtime. Medical Branch Budesonide 2021-09 Yes 1{puff} Inhale 1 Univers 180 2-12 Puff at ity of mcg/actuati 14:11: bedtime. [place] on aerosol Medical powder Branch Potassium 2021-09 Yes 1{tbl} Take 1 Univ ers Gluconate 2-12 tablet by ity o f 595 mg (99 14:11: mouth 2 [place] mg) Tab 57 (two) Medical times Branch daily. MAGNESIUM 2021-09 Yes 200mg Take 200 Uni vers OXIDE ORAL 2-12 mg by ity of 14:11: mouth at [place] [address] bedtime. Medical Branch aspirin 81 2021-09 Yes 81mg Take 81 mg U nivers mg chewable 2-12 by mouth ity of tablet 14:11: daily. [place] [address] Medical Branch DOCOSAHEXAN 2021-09 Yes Take by Uni vers OIC 2-12 mouth. ity of ACID/EPA 14:11: [place] (FISH OIL 57 Medical ORAL) Branch ASCORBATE 2021-09 Yes Take by Unive rs CALCIUM 2-12 mouth. ity of (VITAMIN C 14:11: [place] ORAL) Medical Branch VITAMIN B 2021-09 Yes Take by Unive rs COMPLEX 2-12 mouth. ity of ORAL 14:11: [place] [address] Medical Branch glipiZIDE 5 2021-09 Yes 5mg Take 5 mg U nivers mg tablet 2-12 by mouth ity of 14:11: daily. [place] [address] Medical Branch montelukast 2021-09 Yes 10mg Take 10 mg [facility] 10 mg 2-12 by mouth ity of tablet 14:11: at [place] [address] bedtime. Medical Branch Budesonide 2021-09 Yes 1{puff} Inhale 1 [facility] 180 2-12 Puff at ity of mcg/actuati 14:11: [place]time. [place] on aerosol 57 Medical powder Branch Potassium 2021-09 Yes 1{tbl} Take 1 [facility] ers Gluconate 2-12 tablet by ity o f 595 mg (99 14:11: [place] mg[place] Tab 57 (two) Medical times Branch daily. MAGNESIUM 2021-09 Yes 200mg Take 200 Uni vers OXIDE ORAL 2-12 mg by ity of 14:11: mouth at [place] [address] bedtime. Medical Branch aspirin 81 2021-09 Yes 81mg Take 81 mg U nivers mg chewable 2-12 by mouth ity of tablet 14:11: daily. [place] [address] Medical Branch DOCOSAHEXAN 2021-09 Yes Take by Uni vers OIC 2-12 mouth. ity of ACID/EPA 14:11: [place] (FISH OIL Medical ORAL) Branch ASCORBATE 2021-09 Yes Take by Unive rs CALCIUM 2-12 mouth. ity of (VITAMIN C 14:11: [place] ORAL) Medical Branch VITAMIN B 2021-09 Yes Take by Unive rs COMPLEX 2-12 mouth. ity of ORAL 14:11: [address] Branch glipiZIDE 5 2021-09 Yes 5mg Take 5 mg U nivers mg tablet 2-12 by mouth ity of 14:11: daily. [place] [address] Medical Branch montelukast 2021-09 Yes 10mg Take 10 mg [facility] 10 mg 2-12 by mouth ity of tablet 14:11: at [place] [address] bedtime. Medical Branch Budesonide 2021-09 Yes 1{puff} Inhale 1 [facility] 180 2-12 Puff at ity of mcg/actuati 14:11: [place]. [place] aerosol 57 Medical powder Branch Potassium 2021-09 Yes 1{tbl} Take 1 [facility] ers Gluconate 2-12 tablet by ity o f 595 mg (99 14:11: [place] mg[place] Tab 57 (two) Medical times Branch daily. MAGNESIUM 2021-09 Yes 200mg Take 200 [facility] vers OXIDE ORAL 2-12 mg by ity of 14:11: mouth at [place] [address] bedtime. Medical Branch aspirin 81 2021-09 Yes 81mg Take 81 mg U nivers mg chewable 2-12 by mouth ity of tablet 14:11: daily. [place] [address] Medical Branch DOCOSAHEXAN 2021-09 Yes Take by Uni vers OIC 2-12 mouth. ity of ACID/EPA 14:11: [place] (FISH OIL 57 Medical ORAL) Branch ASCORBATE 2021-09 Yes Take by Unive rs CALCIUM 2-12 mouth. ity of (VITAMIN C 14:11: [place] ORAL) 57 Medical Branch VITAMIN B 2021-09 Yes Take by Unive rs COMPLEX 2-12 mouth. ity of ORAL 14:11: [place] [address] Medical Branch glipiZIDE 5 2021-09 Yes 5mg Take 5 mg U nivers mg tablet 2-12 by mouth ity of 14:11: daily. [place] [address] [facility] Branch montelukast 2021-09 Yes 10mg Take 10 mg [facility] 10 mg 2-12 by mouth ity of tablet 14:11: at [place] [address] bedtime. Medical Branch Budesonide 2021-09 Yes 1{puff} Inhale 1 [facility] 180 2-12 Puff at ity of mcg/actuati 14:11: bedtime. [place] on aerosol 57 Medical powder Branch Potassium 2021-09 Yes 1{tbl} Take 1 [facility] ers Gluconate 2-12 tablet by ity o f 595 mg (99 14:11: [place] mg) Tab 57 (two) Medical times Branch daily. MAGNESIUM 2021-09 Yes 200mg Take 200 [facility] vers OXIDE ORAL 2-12 mg by ity of 14:11: mouth at [place] [address] bedtime. Medical Branch aspirin 81 2021-09 Yes 81mg Take 81 mg U nivers mg chewable 2-12 by mouth ity of tablet 14:11: daily. [place] [address] Medical Branch DOCOSAHEXAN 2021-09 Yes Take by Uni vers OIC 2-12 mouth. ity of ACID/EPA 14:11: [place] (FISH OIL 57 Medical ORAL) Branch ASCORBATE 2021-09 Yes Take by Unive rs CALCIUM 2-12 mouth. ity of (VITAMIN C 14:11: [place] ORAL) Medical Branch VITAMIN B 2021-09 Yes Take by Unive rs COMPLEX 2-12 mouth. ity of ORAL 14:11: [place] [address] Medical Branch glipiZIDE 5 2021-09 Yes 5mg Take 5 mg U nivers mg tablet 2-12 by mouth ity of 14:11: daily. [place] [address] Medical Branch montelukast 2021-09 Yes 10mg Take 10 mg [facility] 10 mg 2-12 by mouth ity of tablet 14:11: at [place] [address] bedtime. Medical Branch Budesonide 2021-09 Yes 1{puff} Inhale 1 [facility] 180 2-12 Puff at ity of mcg/actuati 14:11: [place]time. [place] aerosol 57 Medical powder Branch Potassium 2021-09 Yes 1{tbl} Take 1 [facility] ers Gluconate 2-12 tablet by ity o f 595 mg (99 14:11: mouth 2 [place] mg) Tab 57 (two) Medical times Branch daily. MAGNESIUM 2021-09 Yes 200mg Take 200 [facility] vers OXIDE ORAL 2-12 mg by ity of 14:11: mouth at [place] [address] bedtime. Medical Branch aspirin 81 2021-09 Yes 81mg Take 81 mg U nivers mg chewable 2-12 by mouth ity of tablet 14:11: daily. [place] [address] Medical Branch DOCOSAHEXAN 2021-09 Yes Take by Uni vers OIC 2-12 mouth. ity of ACID/EPA 14:11: [place] (FISH OIL 57 Medical ORAL) Branch ASCORBATE 2021-09 Yes Take by Unive rs CALCIUM 2-12 mouth. ity of (VITAMIN C 14:11: [place] ORAL) Medical Branch VITAMIN B 2021-09 Yes Take by Unive rs COMPLEX 2-12 mouth. ity of ORAL 14:11: [place] [address] Medical Branch glipiZIDE 5 2021-09 Yes 5mg Take 5 mg U nivers mg tablet 2-12 by mouth ity of 14:11: daily. [place] [address] Medical Branch montelukast 2021-09 Yes 10mg Take 10 mg [facility] 10 mg 2-12 by mouth ity of tablet 14:11: at [place] [address] bedtime. Medical Branch Budesonide 2021-09 Yes 1{puff} Inhale 1 [facility] 180 2-12 Puff at ity of mcg/actuati 14:11: [place]time. [place] aerosol 57 Medical powder Branch Potassium 2021-09 Yes 1{tbl} Take 1 [facility] ers Gluconate 2-12 tablet by ity o f 595 mg (99 14:11: [place] mg) Tab 57 (two) Medical times Branch daily. MAGNESIUM 2021-09 Yes 200mg Take 200 [facility] vers OXIDE ORAL 2-12 mg by ity of 14:11: mouth at [place] [address] bedtime. Medical Branch aspirin 81 2021-09 Yes 81mg Take 81 mg U nivers mg chewable 2-12 by mouth ity of tablet 14:11: daily. [place] [address] Medical Branch DOCOSAHEXAN 2021-09 Yes Take by Uni vers OIC 2-12 mouth. ity of ACID/EPA 14:11: [place] (FISH OIL 57 Medical ORAL) Branch ASCORBATE 2021-09 Yes Take by Unive rs CALCIUM 2-12 mouth. ity of (VITAMIN C 14:11: [place]) Medical Branch VITAMIN B 2021-09 Yes Take by Unive rs COMPLEX 2-12 mouth. ity of ORAL 14:11: [place] [address] Medical Branch glipiZIDE 5 2021-09 Yes 5mg Take 5 mg U nivers mg tablet 2-12 by mouth ity of 14:11: daily. [place] [address] Medical Branch montelukast 2021-09 Yes 10mg Take 10 mg [facility] 10 mg 2-12 by mouth ity of tablet 14:11: at [place] [address] bedtime. Medical Branch Budesonide 2021-09 Yes 1{puff} Inhale 1 [facility] 180 2-12 Puff at ity of mcg/actuati 14:11: [place]time. [place] aerosol [facility] powder Branch Potassium 2021-09 Yes 1{tbl} Take 1 [facility] ers Gluconate 2-12 tablet by ity o f 595 mg (99 14:11: mouth 2 [place] mg) Tab 57 (two) Medical times Branch daily. MAGNESIUM 2021-09 Yes 200mg Take 200 [facility] vers OXIDE ORAL 2-12 mg by ity of 14:11: mouth at [place] [address] bedtime. Medical Branch aspirin 81 2021-09 Yes 81mg Take 81 mg U nivers mg chewable 2-12 by mouth ity of tablet 14:11: daily. [place] [address] Medical Branch DOCOSAHEXAN 2021-09 Yes Take by Uni vers OIC 2-12 mouth. ity of ACID/EPA 14:11: [place] (FISH OIL 57 Medical ORAL) Branch ASCORBATE 2021-09 Yes Take by Unive rs CALCIUM 2-12 mouth. ity of (VITAMIN C 14:11: [place] ORAL) 57 Medical Branch VITAMIN B 2021-09 Yes Take by Unive rs COMPLEX 2-12 mouth. ity of ORAL 14:11: [place] [address] Medical Branch glipiZIDE 5 2021-09 Yes 5mg Take 5 mg U nivers mg tablet 2-12 by mouth ity of 14:11: daily. [place] [address] [facility] Branch montelukast 2021-09 Yes 10mg Take 10 mg [facility] 10 mg 2-12 by mouth ity of tablet 14:11: at [place] [address] bedtime. Medical Branch Budesonide 2021-09 Yes 1{puff} Inhale 1 [facility] 180 2-12 Puff at ity of mcg/actuati 14:11: [place]time. [place] aerosol 57 Medical powder Branch Potassium 2021-09 Yes 1{tbl} Take 1 [facility] ers Gluconate 2-12 tablet by ity o f 595 mg (99 14:11: [place] mg) Tab 57 (two) Medical times Branch daily. MAGNESIUM 2021-09 Yes 200mg Take 200 [facility] vers OXIDE ORAL 2-12 mg by ity of 14:11: mouth at [place] [address] bedtime. Medical Branch aspirin 81 2021-09 Yes 81mg Take 81 mg U nivers mg chewable 2-12 by mouth ity of tablet 14:11: daily. [place] [address] Medical Branch DOCOSAHEXAN 2021-09 Yes Take by Uni vers OIC 2-12 mouth. ity of ACID/EPA 14:11: [place] (FISH OIL 57 Medical ORAL) Branch ASCORBATE 2021-09 Yes Take by Unive rs CALCIUM 2-12 mouth. ity of (VITAMIN C 14:11: [place] ORAL) Medical Branch VITAMIN B 2021-09 Yes Take by Unive rs COMPLEX 2-12 mouth. ity of ORAL 14:11: [place] [address] Medical Branch glipiZIDE 5 2021-09 Yes 5mg Take 5 mg U nivers mg tablet 2-12 by mouth ity of 14:11: daily. [place] [address] Medical Branch montelukast 2021-09 Yes 10mg Take 10 mg [facility] 10 mg 2-12 by mouth ity of tablet 14:11: at [place] [address] bedtime. Medical Branch Budesonide 2022-1 Yes 1{puff} Inhale 1 [facility] 180 2-12 Puff at ity of mcg/actuati 14:11: [place]time. [place] aerosol 57 Medical powder Branch Potassium 2021-09 Yes 1{tbl} Take 1 [facility] ers Gluconate 2-12 tablet by ity o f 595 mg (99 14:11: mouth 2 [place] mg) Tab 57 (two) Medical times Branch daily. MAGNESIUM 2021-09 Yes 200mg Take 200 [facility] vers OXIDE ORAL 2-12 mg by ity of 14:11: mouth at [place] [address] bedtime. Medical Branch aspirin 81 2021-09 Yes 81mg Take 81 mg U nivers mg chewable 2-12 by mouth ity of tablet 14:11: daily. [place] [address] Medical Branch DOCOSAHEXAN 2021-09 Yes Take by Uni vers OIC 2-12 mouth. ity of ACID/EPA 14:11: [place] (FISH OIL 57 Medical ORAL) Branch ASCORBATE 2021-09 Yes Take by Unive rs CALCIUM 2-12 mouth. ity of (VITAMIN C 14:11: [place] ORAL) Medical Branch VITAMIN B 2021-09 Yes Take by Unive rs COMPLEX 2-12 mouth. ity of ORAL 14:11: [address] Branch glipiZIDE 5 2021-09 Yes 5mg Take 5 mg U nivers mg tablet 2-12 by mouth ity of 14:11: daily. [place] [address] Medical Branch montelukast 2021-09 Yes 10mg Take 10 mg [facility] 10 mg 2-12 by mouth ity of tablet 14:11: at [place] [address] bedtime. Medical Branch Budesonide 2021-09 Yes 1{puff} Inhale 1 [facility] 180 2-12 Puff at ity of mcg/actuati 14:11: [place]time. [place] aerosol 57 Medical powder Branch Potassium 2021-09 Yes 1{tbl} Take 1 [facility] ers Gluconate 2-12 tablet by ity o f 595 mg (99 14:11: mouth 2 [place] mg) Tab 57 (two) Medical times Branch daily. MAGNESIUM 2021-09 Yes 200mg Take 200 [facility] vers OXIDE ORAL 2-12 mg by ity of 14:11: mouth at [place] [address] bedtime. Medical Branch aspirin 81 2021-09 Yes 81mg Take 81 mg U nivers mg chewable 2-12 by mouth ity of tablet 14:11: daily. [place] [address] Medical Branch DOCOSAHEXAN 2021-09 Yes Take by Uni vers OIC 2-12 mouth. ity of ACID/EPA 14:11: [place] (FISH OIL 57 Medical ORAL) Branch ASCORBATE 2021-09 Yes Take by Unive rs CALCIUM 2-12 mouth. ity of (VITAMIN C 14:11: [place] ORAL) Medical Branch VITAMIN B 2021-09 Yes Take by Unive rs COMPLEX 2-12 mouth. ity of ORAL 14:11: [place] [address] Medical Branch glipiZIDE 5 2021-09 Yes 5mg Take 5 mg U nivers mg tablet 2-12 by mouth ity of 14:11: daily. [place] [address] [facility] Branch montelukast 2021-09 Yes 10mg Take 10 mg [facility] 10 mg 2-12 by mouth ity of tablet 14:11: at [place] [address] bedtime. Medical Branch Budesonide 2021-09 Yes 1{puff} Inhale 1 [facility] 180 2-12 Puff at ity of mcg/actuati 14:11: bedtime. [place] on aerosol Medical powder Branch Potassium 2021-09 Yes 1{tbl} Take 1 [facility] ers Gluconate 2-12 tablet by ity o f 595 mg (99 14:11: mouth 2 [place] mg) Tab (two) Medical times Branch daily. MAGNESIUM 2021-09 Yes 200mg Take 200 [facility] vers OXIDE ORAL 2-12 mg by ity of 14:11: mouth at [place] [address] bedtime. Medical Branch aspirin 81 2021-09 Yes 81mg Take 81 mg U nivers mg chewable 2-12 by mouth ity of tablet 14:11: daily. [place] [address] Medical Branch DOCOSAHEXAN 2021-09 Yes Take by Uni vers OIC 2-12 mouth. ity of ACID/EPA 14:11: [place] (FISH OIL 57 Medical ORAL) Branch ASCORBATE 2021-09 Yes Take by Unive rs CALCIUM 2-12 mouth. ity of (VITAMIN C 14:11: [place] ORAL) Medical Branch VITAMIN B 2021-09 Yes Take by Unive rs COMPLEX 2-12 mouth. ity of ORAL 14:11: [place] [address] Medical Branch glipiZIDE 5 2021-09 Yes 5mg Take 5 mg U nivers mg tablet 2-12 by mouth ity of 14:11: daily. [address] Branch acetaminoph 2021-09 Yes 4647 1{tbl} Take 1 [facility] en-codeine 2-12 tablet by ity of (TYLENOL-CO 00:00: mouth [place] DEINE #3) 00 every 4 Medical 300-30 mg (four) Branch tablet hours as needed for Pain (scale 4-6) or Pain (scale 7-10). Indication s: acute pain acetaminoph 2021- Yes 4647 1{tbl} Take 1 [facility] en-codeine 2-12 tablet by ity of (TYLENOL-CO 00:00: mouth [place] DEINE #3) 00 every 4 Medical 300-30 mg (four) Branch tablet hours as needed for Pain (scale 4-6) or Pain (scale 7-10). Indication s: acute pain acetaminoph 2021-09 Yes 4647 1{tbl} Take 1 [facility] en-codeine 2-12 tablet by ity of (TYLENOL-CO 00:00: mouth [place] DEINE #3) 00 every 4 Medical 300-30 mg (four) Branch tablet hours as needed for Pain (scale 4-6) or Pain (scale 7-10). Indication s: acute pain acetaminoph 2021-09 Yes 4647 1{tbl} Take 1 [facility] en-codeine 2-12 tablet by ity of (TYLENOL-CO 00:00: mouth [place] DEINE #3) 00 every 4 Medical 300-30 mg (four) Branch tablet hours as needed for Pain (scale 4-6) or Pain (scale 7-10). Indication s: acute pain acetaminoph 2021-1 Yes 4647 1{tbl} Take 1 [facility] en-codeine 2-12 tablet by ity of (TYLENOL-CO 00:00: mouth [place] DEINE #3) 00 every 4 Medical 300-30 mg (four) Branch tablet hours as needed for Pain (scale 4-6) or Pain (scale 7-10). Indication s: acute pain acetaminoph 2021-1 Yes 4647 1{tbl} Take 1 [facility] en-codeine 2-12 tablet by ity of (TYLENOL-CO 00:00: mouth [place] DEINE #3) 00 every 4 Medical 300-30 mg (four) Branch tablet hours as needed for Pain (scale 4-6) or Pain (scale 7-10). Indication s: acute pain acetaminoph 2021- Yes 4647 1{tbl} Take 1 [facility] en-codeine 2-12 tablet by ity of (TYLENOL-CO 00:00: mouth [place] DEINE #3) 00 every 4 Medical 300-30 mg (four) Branch tablet hours as needed for Pain (scale 4-6) or Pain (scale 7-10). Indication s: acute pain acetaminoph 2021- Yes 4647 1{tbl} Take 1 [facility] en-codeine 2-12 tablet by ity of (TYLENOL-CO 00:00: mouth [place] DEINE #3) 00 every 4 Medical 300-30 mg (four) Branch tablet hours as needed for Pain (scale 4-6) or Pain (scale 7-10). Indication s: acute pain acetaminoph 2021-09 Yes 4647 1{tbl} Take 1 [facility] en-codeine 2-12 tablet by ity of (TYLENOL-CO 00:00: mouth [place] DEINE #3) 00 every 4 Medical 300-30 mg (four) Branch tablet hours as needed for Pain (scale 4-6) or Pain (scale 7-10). Indication s: acute pain acetaminoph 2021-09 Yes 4647 1{tbl} Take 1 [facility] en-codeine 2-12 tablet by ity of (TYLENOL-CO 00:00: mouth [place] DEINE #3) 00 every 4 Medical 300-30 mg (four) Branch tablet hours as needed for Pain (scale 4-6) or Pain (scale 7-10). Indication s: acute pain acetaminoph 2021-1 Yes 4647 1{tbl} Take 1 [facility] en-codeine 2-12 tablet by ity of (TYLENOL-CO 00:00: mouth [place] DEINE #3) 00 every 4 Medical 300-30 mg (four) Branch tablet hours as needed for Pain (scale 4-6) or Pain (scale 7-10). Indication s: acute pain acetaminoph 2021-1 Yes 4647 1{tbl} Take 1 [facility] en-codeine 2-12 tablet by ity of (TYLENOL-CO 00:00: mouth [place] DEINE #3) 00 every 4 Medical 300-30 mg (four) Branch tablet hours as needed for Pain (scale 4-6) or Pain (scale 7-10). Indication s: acute pain acetaminoph 2021-09 Yes 4647 1{tbl} Take 1 [facility] en-codeine 2-12 tablet by ity of (TYLENOL-CO 00:00: mouth [place] DEINE #3) 00 every 4 Medical 300-30 mg (four) Branch tablet hours as needed for Pain (scale 4-6) or Pain (scale 7-10). Indication s: acute pain acetaminoph 2021-09 Yes 4647 1{tbl} Take 1 [facility] en-codeine 2-12 tablet by ity of (TYLENOL-CO 00:00: mouth [place] DEINE #3) 00 every 4 Medical 300-30 mg (four) Branch tablet hours as needed for Pain (scale 4-6) or Pain (scale 7-10). Indication s: acute pain acetaminoph 2021-09 Yes 4647 1{tbl} Take 1 [facility] en-codeine 2-12 tablet by ity of (TYLENOL-CO 00:00: mouth [place] DEINE #3) 00 every 4 Medical 300-30 mg (four) Branch tablet hours as needed for Pain (scale 4-6) or Pain (scale 7-10). Indication s: acute pain acetaminoph 2021-09 Yes 4647 1{tbl} Take 1 [facility] en-codeine 2-12 tablet by ity of (TYLENOL-CO 00:00: mouth [place] DEINE #3) 00 every 4 Medical 300-30 mg (four) Branch tablet hours as needed for Pain (scale 4-6) or Pain (scale 7-10). Indication s: acute pain Acetaminoph Acetaminoph 2021-09 No 1{table QID Acetaminop en-Codeine en-Codeine 2-12 t_as_ne hen-Codein #3 300-30 #3 300-30 00:00: eded} e #3 MG MG 00 300-30 MG Acetaminoph Acetaminoph 2021-09 No 1{table QID Acetaminop en-Codeine en-Codeine 2-12 t_as_ne hen-Codein #3 300-30 #3 300-30 00:00: eded} e #3 MG MG 00 300-30 MG Acetaminoph Acetaminoph 2021-09 No 1{table QID Acetaminop en-Codeine en-Codeine 2-12 t_as_ne hen-Codein #3 300-30 #3 300-30 00:00: eded} e #3 MG MG 00 300-30 MG Acetaminoph Acetaminoph 2021-09 No 1{table QID Acetaminop en-Codeine en-Codeine 2-12 t_as_ne hen-Codein #3 300-30 #3 300-30 00:00: eded} e #3 MG MG 00 300-30 MG Acetaminoph Acetaminoph 2021-09 No 1{table QID Acetaminop en-Codeine en-Codeine 2-12 t_as_ne hen-Codein #3 300-30 #3 300-30 00:00: eded} e #3 MG MG 00 300-30 MG pentazocine 2021-09 Yes 4647 1{tbl} Take 1 Un j[facility] -naloxone 2-09 tablet by ity o f 50-0.5 mg 00:00: mouth [place] tablet 00 every 4 Medical (four) Branch hours as needed for Pain. Indication s: acute pain pentazocine 2021-09 Yes 4647 1{tbl} Take 1 [facility] j[facility] -naloxone 2-09 tablet by ity o f 50-0.5 mg 00:00: mouth [place] tablet 00 every 4 Medical (four) Branch hours as needed for Pain. Indication s: acute pain pentazocine 2021-09 Yes 4647 1{tbl} Take 1 [facility] -naloxone 2-09 tablet by ity o f 50-0.5 mg 00:00: mouth [place] tablet 00 every 4 Medical (four) Branch hours as needed for Pain. Indication s: acute pain pentazocine 2021-09 Yes 4647 1{tbl} Take 1 [facility] -naloxone 2-09 tablet by ity o f 50-0.5 mg 00:00: mouth [place] tablet 00 every 4 Medical (four) Branch hours as needed for Pain. Indication s: acute pain pentazocine 2021-09 Yes 4647 1{tbl} Take 1 [facility] -naloxone 2-09 tablet by ity o f 50-0.5 mg 00:00: mouth [place] tablet 00 every 4 Medical (four) Branch hours as needed for Pain. Indication s: acute pain pentazocine 2021-09 Yes 4647 1{tbl} Take 1 [facility] -naloxone 2-09 tablet by ity o f 50-0.5 mg 00:00: mouth [place] tablet 00 every 4 Medical (four) Branch hours as needed for Pain. Indication s: acute pain pentazocine 2021-09 Yes 4647 1{tbl} Take 1 [facility] -naloxone 2-09 tablet by ity o f 50-0.5 mg 00:00: mouth [place] tablet 00 every 4 Medical (four) Branch hours as needed for Pain. Indication s: acute pain pentazocine 2021-09 Yes 4647 1{tbl} Take 1 [facility] -naloxone 2-09 tablet by ity o f 50-0.5 mg 00:00: mouth [place] tablet 00 every 4 Medical (four) Branch hours as needed for Pain. Indication s: acute pain pentazocine 2021-09 Yes 4647 1{tbl} Take 1 [facility] -naloxone 2-09 tablet by ity o f 50-0.5 mg 00:00: mouth [place] tablet 00 every 4 Medical (four) Branch hours as needed for Pain. Indication s: acute pain pentazocine 2021-09 Yes 4647 1{tbl} Take 1 [facility] -naloxone 2-09 tablet by ity o f 50-0.5 mg 00:00: mouth [place] tablet 00 every 4 Medical (four) Branch hours as needed for Pain. Indication s: acute pain pentazocine 2021-09 Yes 4647 1{tbl} Take 1 [facility] -naloxone 2-09 tablet by ity o f 50-0.5 mg 00:00: mouth [place] tablet 00 every 4 Medical (four) Branch hours as needed for Pain. Indication s: acute pain pentazocine 2021-09 Yes 4647 1{tbl} Take 1 [facility] -naloxone 2-09 tablet by ity o f 50-0.5 mg 00:00: mouth [place] tablet 00 every 4 Medical (four) Branch hours as needed for Pain. Indication s: acute pain pentazocine 2021-09 Yes 4647 1{tbl} Take 1 [facility] -naloxone 2-09 tablet by ity o f 50-0.5 mg 00:00: mouth [place] tablet 00 every 4 Medical (four) Branch hours as needed for Pain. Indication s: acute pain pentazocine 2021-09 Yes 4647 1{tbl} Take 1 [facility] -naloxone 2-09 tablet by ity o f 50-0.5 mg 00:00: mouth [place] tablet 00 every 4 Medical (four) Branch hours as needed for Pain. Indication s: acute pain pentazocine 2021-09 Yes 4647 1{tbl} Take 1 [facility] -naloxone 2-09 tablet by ity o f 50-0.5 mg 00:00: mouth [place] tablet 00 every 4 Medical (four) Branch hours as needed for Pain. Indication s: acute pain pentazocine 2021-09 Yes 4647 1{tbl} Take 1 [facility] -naloxone 2-09 tablet by ity o f 50-0.5 mg 00:00: mouth [place] tablet 00 every 4 Medical (four) Branch hours as needed for Pain. Indication s: acute pain pentazocine 2021-09 Yes 4647 1{tbl} Take 1 [facility] -naloxone 2-09 tablet by ity o f 50-0.5 mg 00:00: mouth [place] tablet 00 every 4 Medical (four) Branch hours as needed for Pain. Indication s: acute pain pentazocine 2021-09 Yes 4647 1{tbl} Take 1 [facility] j[facility] -naloxone 2-09 tablet by ity o f 50-0.5 mg 00:00: mouth [place] tablet 00 every 4 Medical (four) Branch hours as needed for Pain. Indication s: acute pain cefTRIAXone 2021-09 No 1000mg 1,000 mg, [facility] (ROCEPHIN) 10-23 IV ity of 1,000 mg in 13:30: 13:47 [place], [place] NaCl 0.9% 00 :00 ONCE, 1 Medical (NS) 50 mL dose, On Bran h MINI-BAG Radha 08/22/22 at 0730, Administer over 30 Minutes, 50 mL
Reas on for Anti-Infec tive: Documented Infection< br>Documen dewayne Infection Site: Urine<br&g t;Duration of Therapy: Other (see Comments) cefdinir 2021-09 No [id number] 300mg Take 1 U nivers 300 mg 2-08 12-16 capsule by ity of capsule 00:00: 05:59 mouth [place] 00 :00 every 12 Medical (twelve) Branch hours for 7 days. cefdinir 2021-09- No [id number] 300mg Take 1 U nivers 300 mg 2-04 26-16 capsule by ity of capsule 00:00: 05:59 mouth [place] 00 :00 every 12 Medical (twelve) Branch hours for 7 days. cefdinir 2021-2- No [id number] 300mg Take 1 U nivers 300 mg 2-04 26-16 capsule by ity of capsule 00:00: 05:59 mouth [place] 00 :00 every 12 Medical (twelve) Branch hours for 7 days. cefdinir 2021-2021- No [id number] 300mg Take 1 U nivers 300 mg 2-04 26-16 capsule by ity of capsule 00:00: 05:59 mouth [place] 00 :00 every 12 Medical (twelve) Branch hours for 7 days. cefdinir 2021-2021- No [id number] 300mg Take 1 U nivers 300 mg 2-04 26-16 capsule by ity of capsule 00:00: 05:59 mouth [place] 00 :00 every 12 Medical (twelve) Branch hours for 7 days. cefdinir 2021-09- No [id number] 300mg Take 1 U nivers 300 mg 2-04 26-16 capsule by ity of capsule 00:00: 05:59 mouth [place] 00 :00 every 12 Medical (twelve) Branch hours for 7 days. cefdinir 2021-09- No [id number] 300mg Take 1 U nivers 300 mg 2-04 26-16 capsule by ity of capsule 00:00: 05:59 mouth [place] 00 :00 every 12 Medical (twelve) Branch hours for 7 days. cefdinir 2021-2- No [id number] 300mg Take 1 U nivers 300 mg 2-04 26-16 capsule by ity of capsule 00:00: 05:59 mouth [place] 00 :00 every 12 Medical (twelve) Branch hours for 7 days. cefdinir 2021-2- No [id number] 300mg Take 1 U nivers 300 mg 2-04 26-16 capsule by ity of capsule 00:00: 05:59 mouth [place] 00 :00 every 12 Medical (twelve) Branch hours for 7 days. cefdinir 2021-09- No [id number] 300mg Take 1 U nivers 300 mg 2- 12-16 capsule by ity of capsule 00:00: 05:59 mouth [place] 00 :00 every 12 Medical (twelve) Branch hours for 7 days. traMADoL 50 2021-09 Yes 4647 50mg Take 1 [facility] ers mg tablet 2-07 tablet by ity o f 00:00: mouth [place] 00 every 4 Medical (four) Branch hours as needed for Pain (scale 7-10). Indication s: acute pain traMADoL 50 2021-09 Yes 4647 50mg Take 1 [facility] ers mg tablet 2-07 tablet by ity o f 00:00: mouth [place] 00 every 4 Medical (four) Branch hours as needed for Pain (scale 7-10). Indication s: acute pain traMADoL 50 2021-09 Yes 4647 50mg Take 1 [facility] ers mg tablet 2-07 tablet by ity o f 00:00: mouth [place] 00 every 4 Medical (four) Branch hours as needed for Pain (scale 7-10). Indication s: acute pain traMADoL 50 2021-09 Yes 4647 50mg Take 1 [facility] ers mg tablet 2-07 tablet by ity o f 00:00: mouth [place] 00 every 4 Medical (four) Branch hours as needed for Pain (scale 7-10). Indication s: acute pain traMADoL 50 2021-09 Yes 4647 50mg Take 1 [facility] ers mg tablet 2-07 tablet by ity o f 00:00: mouth [place] 00 every 4 Medical (four) Branch hours as needed for Pain (scale 7-10). Indication s: acute pain traMADoL 50 2021-09 Yes 4647 50mg Take 1 [facility] ers mg tablet 2-07 tablet by ity o f 00:00: mouth [place] 00 every 4 Medical (four) Branch hours as needed for Pain (scale 7-10). Indication s: acute pain traMADoL 50 2021-09 Yes 4647 50mg Take 1 [facility] ers mg tablet 2-07 tablet by ity o f 00:00: mouth [place] 00 every 4 Medical (four) Branch hours as needed for Pain (scale 7-10). Indication s: acute pain traMADoL 50 2021-09 Yes 4647 50mg Take 1 [facility] mg tablet 2-07 tablet by ity o f 00:00: mouth [place] 00 every 4 Medical (four) Branch hours as needed for Pain (scale 7-10). Indication s: acute pain traMADoL 50 2021-09 Yes 4647 50mg Take 1 [facility] mg tablet 2-07 tablet by ity o f 00:00: mouth [place] 00 every 4 Medical (four) Branch hours as needed for Pain (scale 7-10). Indication s: acute pain traMADoL 50 2021-09 Yes 4647 50mg Take 1 [facility] mg tablet 2-07 tablet by ity o f 00:00: mouth [place] 00 every 4 Medical (four) Branch hours as needed for Pain (scale 7-10). Indication s: acute pain traMADoL 50 2021-09 Yes 4647 50mg Take 1 [facility] mg tablet 2-07 tablet by ity o f 00:00: mouth [place] 00 every 4 Medical (four) Branch hours as needed for Pain (scale 7-10). Indication s: acute pain traMADoL 50 2021-09 Yes 4647 50mg Take 1 [facility] mg tablet 2-07 tablet by ity o f 00:00: mouth [place] 00 every 4 Medical (four) Branch hours as needed for Pain (scale 7-10). Indication s: acute pain traMADoL 50 2021-09 Yes 4647 50mg Take 1 [facility] mg tablet 2-07 tablet by ity o f 00:00: mouth [place] 00 every 4 Medical (four) Branch hours as needed for Pain (scale 7-10). Indication s: acute pain traMADoL 50 2021-09 Yes 4647 50mg Take 1 [facility] mg tablet 2-07 tablet by ity o f 00:00: mouth [place] 00 every 4 Medical (four) Branch hours as needed for Pain (scale 7-10). Indication s: acute pain traMADoL 50 2021-09 Yes 4647 50mg Take 1 [facility] mg tablet 2-07 tablet by ity o f 00:00: mouth [place] 00 every 4 Medical (four) Branch hours as needed for Pain (scale 7-10). Indication s: acute pain traMADoL 50 2021- Yes 4647 50mg Take 1 [facility] mg tablet 2-07 tablet by ity o f 00:00: mouth [place] 00 every 4 Medical (four) Branch hours as needed for Pain (scale 7-10). Indication s: acute pain traMADoL 50 2021-09 Yes 4647 50mg Take 1 [facility] mg tablet 2-07 tablet by ity o f 00:00: mouth [place] 00 every 4 Medical (four) Branch hours as needed for Pain (scale 7-10). Indication s: acute pain traMADoL 50 2021-09 Yes 4647 50mg Take 1 [facility] mg tablet 2-07 tablet by ity o f 00:00: mouth [place] 00 every 4 Medical (four) Branch hours as needed for Pain (scale 7-10). Indication s: acute pain traMADoL 50 2021-09 Yes 4647 50mg Take 1 [facility] mg tablet 2-07 tablet by ity o f 00:00: mouth [place] 00 every 4 Medical (four) Branch hours as needed for Pain (scale 7-10). Indication s: acute pain traMADoL 50 2021-09 Yes 4647 50mg Take 1 [facility] mg tablet 2-07 tablet by ity o f 00:00: mouth [place] 00 every 4 Medical (four) Branch hours as needed for Pain (scale 7-10). Indication s: acute pain traMADoL 50 2021-09 Yes 4647 50mg Take 1 [facility] mg tablet 2-07 tablet by ity o f 00:00: mouth [place] 00 every 4 Medical (four) Branch hours as needed for Pain (scale 7-10). Indication s: acute pain traMADoL 50 2021-09- No 4647 50mg Take 1 [facility] mg tablet 2-07 03-20 tablet by ity of 00:00: 00:00 mouth [place] 00 :00 every 4 Medical (four) Branch hours as needed for Pain (scale 7-10). Indication s: acute pain traMADoL 50 2021-09- No 4647 50mg Take 1 [facility] mg tablet 2-07 03-20 tablet by ity of 00:00: 00:00 mouth [place] 00 :00 every 4 Medical (four) Branch hours as needed for Pain (scale 7-10). Indication s: acute pain montelukast Yes 10mg Take 10 mg [facility] 10 mg 9-10 by mouth ity of tablet 15:26: at [place] 41 bedtime. Medical Branch Budesonide Yes 1{puff} [...] mg by ity of 15:26: mouth at [place] [address] bedtime. Medical Branch aspirin 81 2020-0 Yes 81mg Take 81 mg [facility] mg chewable 9-10 by mouth ity of tablet 15:26: daily. [place] [address] Medical Branch DOCOSAHEXAN 2020-0 Yes Take by [facility] vers OIC 9-10 mouth. ity of ACID/EPA 15:26: [place] (FISH OIL 41 Medical ORAL) Branch ASCORBATE 2020-0 Yes Take by Un[facility] rs CALCIUM 9-10 mouth. ity of (VITAMIN C 15:26: [place] ORAL) Medical Branch VITAMIN B 2020-0 Yes Take by [facility] rs COMPLEX 9-10 mouth. ity of ORAL 15:26: [place] [address] Medical Branch glipiZIDE 5 2020-0 Yes 5mg Take 5 mg [facility] n[facility] mg tablet 9-10 by mouth ity of 15:26: daily. [place] [address] Medical Branch montelukast 2020-0 Yes 10mg Take 10 mg [facility] 10 mg 9-10 by mouth ity of tablet 10:26: at [place] [address] bedtime. Medical Branch Budesonide 2020-0 Yes 1{puff} Inhale 1 [facility] (PULMICORT 9-10 Puff at [facility] 10:26: bedtime. [place] as 180 41 Medical mcg/actuati Branch on aerosol powder Potassium 2020-0 Yes 1{tbl} Take 1 [facility] Gluconate 9-10 tablet by ity o [place] 595 mg (99 10:26: [place] mg[place] Tab 41 (two) Medical times Branch daily. MAGNESIUM 2020-0 Yes 200mg Take 200 [facility] OXIDE ORAL 9-10 mg by ity of 10:26: mouth at [place] [address] bedtime. Medical Branch aspirin 81 2020-0 Yes 81mg Take 81 mg [facility] mg chewable 9-10 by mouth ity of tablet 10:26: daily. [place] [address] Medical Branch DOCOSAHEXAN 2020-0 Yes Take by [facility] OIC 9-10 mouth. ity of ACID/EPA 10:26: [place] (FISH OIL 41 Medical ORAL) Branch ASCORBATE 2020-0 Yes Take by Un[facility] rs CALCIUM 9-10 mouth. ity of (VITAMIN C 10:26: [place] ORAL) Medical Branch VITAMIN B 2020-0 Yes Take by Un[facility] rs COMPLEX 9-10 mouth. ity of ORAL 10:26: [place] [address] Medical Branch glipiZIDE 5 2020-0 Yes 5mg Take 5 mg [facility] n[facility] mg tablet 9-10 by mouth ity of 10:26: daily. [place] [address] Medical Branch montelukast 2020-0 Yes 10mg Take 10 mg [facility] 10 mg 9-10 by mouth ity of tablet 10:26: at [place] [address] bedtime. Medical Branch Budesonide 2020-0 Yes 1{puff} Inhale 1 [facility] (PULMICORT 9-10 [facility] 10:26: bedtime. [place] 180 Medical mcg/actuati Branch on aerosol powder Potassium 2020-0 Yes 1{tbl} Take 1 [facility] Gluconate 9-10 tablet by ity o f 595 mg (99 10:26: [place] mg) Tab 41 (two) Medical times Branch daily. MAGNESIUM 2020-0 Yes 200mg Take 200 [facility] OXIDE ORAL 9-10 mg by ity of 10:26: mouth at [place] [address] bedtime. Medical Branch aspirin 81 2020-0 Yes 81mg Take 81 mg [facility] mg chewable 9-10 by mouth ity of tablet 10:26: daily. [place] [address] Medical Branch DOCOSAHEXAN 2020-0 Yes Take by [facility] vers OIC 9-10 mouth. ity of ACID/EPA 10:26: [place] (FISH OIL 41 Medical ORAL) Branch ASCORBATE 2020-0 Yes Take by Un[facility] rs CALCIUM 9-10 mouth. ity of (VITAMIN C 10:26: [place] ORAL) Medical Branch VITAMIN B 2020-0 Yes Take by Un[facility] rs COMPLEX 9-10 mouth. ity of ORAL 10:26: [place] [address] Medical Branch glipiZIDE 5 2020-0 Yes 5mg Take 5 mg [facility] mg tablet 9-10 by mouth ity of 10:26: daily. [place] [address] Medical Branch montelukast 2020-0 Yes 10mg Take 10 mg [facility] 10 mg 9-10 by mouth ity of tablet 10:26: at [place] [address] bedtime. Medical Branch Budesonide 2020-0 Yes 1{puff} Inhale 1 [facility] (PULMICORT 9-10 Puff at ity of [facility]) 10:26: bedtime. [place] 180 41 Medical mcg/actuati Branch on aerosol powder Potassium 2020-0 Yes 1{tbl} Take 1 [facility] Gluconate 9-10 tablet by ity o f 595 mg (99 10:26: [place] mg[place] Tab 41 (two) Medical times Branch daily. MAGNESIUM 2020-0 Yes 200mg Take 200 [facility] OXIDE ORAL 9-10 mg by ity of 10:26: mouth at [place] [address] bedtime. Medical Branch aspirin 81 2020-0 Yes 81mg Take 81 mg [facility] mg chewable 9-10 by mouth ity of tablet 10:26: daily. [place] [address] Medical Branch DOCOSAHEXAN 2020-0 Yes Take by [facility] vers OIC 9-10 mouth. ity of ACID/EPA 10:26: [place] (FISH OIL 41 Medical ORAL) Branch ASCORBATE 2020-0 Yes Take by [facility] rs CALCIUM 9-10 mouth. ity of (VITAMIN C 10:26: [place] ORAL) Medical Branch VITAMIN B 2020-0 Yes Take by [facility] rs COMPLEX 9-10 mouth. ity of ORAL 10:26: [place] [address] Medical Branch glipiZIDE 5 2020-0 Yes 5mg Take 5 mg [facility] mg tablet 9-10 by mouth ity of 10:26: daily. [place] [address] Medical Branch montelukast 2020-0 Yes 10mg Take 10 mg [facility] 10 mg 9-10 by mouth ity of tablet 10:26: at [place] [address] bedtime. Medical Branch Budesonide 2020-0 Yes 1{puff} Inhale 1 [facility] (PULMICORT 9-10 Puff at ity of [facility]) 10:26: bedtime. [place] 180 41 Medical mcg/actuati Branch on aerosol powder Potassium 2020-0 Yes 1{tbl} Take 1 [facility] Gluconate 9-10 tablet by ity o f 595 mg (99 10:26: mouth [place] mg) Tab 41 (two) Medical times Branch daily. MAGNESIUM 2020-0 Yes 200mg Take 200 [facility] vers OXIDE ORAL 9-10 mg by ity of 10:26: mouth at [place] [address] bedtime. Medical Branch aspirin 81 2020-0 Yes 81mg Take 81 mg [facility] mg chewable 9-10 by mouth ity of tablet 10:26: daily. [place] [address] Medical Branch DOCOSAHEXAN 2020-0 Yes Take by [facility] vers OIC 9-10 mouth. ity of ACID/EPA 10:26: [place] (FISH OIL 41 Medical ORAL) Branch ASCORBATE 2020-0 Yes Take by [facility] rs CALCIUM 9-10 mouth. ity of (VITAMIN C 10:26: [place] ORAL) Medical Branch VITAMIN B 2020-0 Yes Take by [facility] rs COMPLEX 9-10 mouth. ity of ORAL 10:26: [place] [address] Medical Branch glipiZIDE 5 2020-0 Yes 5mg Take 5 mg [facility] mg tablet 9-10 by mouth ity of 10:26: daily. [place] [address] Medical Branch montelukast 2020-0 Yes 10mg Take 10 mg [facility] 10 mg 9-10 by mouth ity of tablet 10:26: at [place] [address] bedtime. Medical Branch Budesonide 2020-0 Yes 1{puff} Inhale 1 [facility] (PULMICORT 9-10 Puff at [facility]) 10:26: bedtime. [place] 180 Medical mcg/actuati Branch on aerosol powder Potassium 2020-0 Yes 1{tbl} Take 1 [facility] Gluconate 9-10 tablet by ity o f 595 mg (99 10:26: [place] mg) Tab 41 (two) Medical times Branch daily. MAGNESIUM 2020-0 Yes 200mg Take 200 [facility] vers OXIDE ORAL 9-10 mg by ity of 10:26: mouth at [place] [address] bedtime. Medical Branch aspirin 81 2020-0 Yes 81mg Take 81 mg [facility] mg chewable 9-10 by mouth ity of tablet 10:26: daily. [place] [address] Medical Branch DOCOSAHEXAN 2020-0 Yes Take by Uni vers OIC 9-10 mouth. ity of ACID/EPA 10:26: [place] (FISH OIL 41 Medical ORAL) Branch ASCORBATE 2020-0 Yes Take by Un[facility] rs CALCIUM 9-10 mouth. ity of (VITAMIN C 10:26: [place] ORAL) Medical Branch VITAMIN B 2020-0 Yes Take by Un[facility] rs COMPLEX 9-10 mouth. ity of ORAL 10:26: [place] [address] Medical Branch glipiZIDE 5 2020-0 Yes 5mg Take 5 mg [facility] n[facility] mg tablet 9-10 by mouth ity of 10:26: daily. [place] [address] Medical Branch montelukast 2020-0 Yes 10mg Take 10 mg [facility] 10 mg 9-10 by mouth ity of tablet 10:26: at [place] [address] bedtime. Medical Branch Budesonide 2020-0 Yes 1{puff} Inhale 1 [facility] (PULMICORT 9-10 Puff at ity of [facility]) 10:26: bedtime. [place] 180 41 Medical mcg/actuati Branch on aerosol powder Potassium 2020-0 Yes 1{tbl} Take 1 [facility] Gluconate 9-10 tablet by ity o f 595 mg (99 10:26: mouth [place] mg) Tab 41 (two) Medical times Branch daily. MAGNESIUM 2020-0 Yes 200mg Take 200 [facility] vers OXIDE ORAL 9-10 mg by ity of 10:26: mouth at [place] [address] bedtime. Medical Branch aspirin 81 2020-0 Yes 81mg Take 81 mg [facility] n[facility] mg chewable 9-10 by mouth ity of tablet 10:26: daily. [place] [address] Medical Branch DOCOSAHEXAN 2020-0 Yes Take by [facility] vers OIC 9-10 mouth. ity of ACID/EPA 10:26: [place] (FISH OIL 41 Medical ORAL) Branch ASCORBATE 2020-0 Yes Take by Un[facility] rs CALCIUM 9-10 mouth. ity of (VITAMIN C 10:26: [place] ORAL) Medical Branch VITAMIN B 2020-0 Yes Take by Un[facility] rs COMPLEX 9-10 mouth. ity of ORAL 10:26: [place] [address] Medical Branch glipiZIDE 5 2020-0 Yes 5mg Take 5 mg [facility] nivers mg tablet 9-10 by mouth ity of 10:26: daily. [place] [address] Medical Branch montelukast 2020-0 Yes 10mg Take 10 mg [facility] 10 mg 9-10 by mouth ity of tablet 10:26: at [place] [address] bedtime. Medical Branch Budesonide 2020-0 Yes 1{puff} Inhale 1 [facility] (PULMICORT 9-10 Puff at ity of [facility]) 10:26: bedtime. [place] 180 41 Medical mcg/actuati Branch on aerosol powder Potassium 2020-0 Yes 1{tbl} Take 1 [facility] Gluconate 9-10 tablet by ity o f 595 mg (99 10:26: mouth [place] mg) Tab 41 (two) Medical times Branch daily. MAGNESIUM 2020-0 Yes 200mg Take 200 [facility] vers OXIDE ORAL 9-10 mg by ity of 10:26: mouth at [place] [address] bedtime. Medical Branch aspirin 81 2020-0 Yes 81mg Take 81 mg [facility] n[facility] mg chewable 9-10 by mouth ity of tablet 10:26: daily. [place] [address] Medical Branch DOCOSAHEXAN 2020-0 Yes Take by Uni vers OIC 9-10 mouth. ity of ACID/EPA 10:26: [place] (FISH OIL 41 Medical ORAL) Branch ASCORBATE 2020-0 Yes Take by Un[facility] rs CALCIUM 9-10 mouth. ity of (VITAMIN C 10:26: [place] ORAL) Medical Branch VITAMIN B 2020-0 Yes Take by Un[facility] rs COMPLEX 9-10 mouth. ity of ORAL 10:26: [place] [address] Medical Branch glipiZIDE 5 2020-0 Yes 5mg Take 5 mg [facility] nivers mg tablet 9-10 by mouth ity of 10:26: daily. [place] [address] Medical Branch lisinopriL 2020- No [id number] 5mg Take 1 [facility] 5 mg tablet 9-10 10-11 tablet by it y of 00:00: 04:59 mouth [place] 00 :00 daily for Medical 30 days. Branch spironolact 2019-0 2020- No [id number] 25mg Take 1 [facility] one 25 mg 9-10 10-11 tablet by ity of tablet 00:00: 04:59 mouth [place] 00 :00 daily for Medical 30 days. Branch warfarin 3 2020- No [id number] 3mg Take 1 [facility] mg tablet 9-10 10-11 tablet by ity of 00:00: 04:59 mouth [place] 00 :00 every Medical Tues, Branch Thurs, Sat and Sun in the evening for 30 days. carvediloL 2019-0 2020- No [id number] 3.125mg Take 1 [facility] 3.125 mg 9-09 10-10 tablet by ity o f tablet 00:00: 04:59 mouth 2 [place] 00 :00 (two) Medical times Branch daily with meals for 30 days. furosemide 2019- 2020- No [id number] 40mg Take 1 [facility] 40 mg 9-09 10-10 tablet by ity of tablet 00:00: 04:59 mouth [place] 00 :00 every Medical morning Branch and evening for 30 days. warfarin 4 2019- 2020- No [id number] 4mg Take 1 [facility] mg tablet 9-09 10-10 tablet by ity of 00:00: 04:59 mouth [place] 00 :00 every Medical Friday, Branch and Friday in the evening for 30 days. warfarin 1 Yes 3 mg = 3 [facility] mg oral 6-24 tab, PO, l tablet 20:46: Q5PM, 0 [place] 00 Refill(s) Furosemide Yes 40 mg = 1 [facility] 40 MG Oral 6-24 tab, PO, l Tablet 20:46: Daily, 0 [place] 00 Refill(s) 24 HR 0 Yes 25 mg = 1 [facility] Metoprolol 6-24 tab, PO, l Tartrate 25 20:46: Daily, 0 [facility] MG Extended 00 Refill(s) Release Tablet [Toprol] lisinopril Yes 2.5 mg = 1 M [facility] 2.5 mg oral 6-24 tab, PO, l tablet 20:46: Daily, 0 [place] 00 Refill(s) warfarin Yes 3 mg = 3 [facility] mg oral 6-24 tab, PO, l tablet 20:46: Q5PM, 0 [place] 00 Refill(s) Furosemide 2018- Yes 40 mg = 1 [facility] 40 MG Oral 6-24 tab, PO, l Tablet 20:46: Daily, 0 [place] 00 Refill(s) 24 HR 2018-0 Yes 25 mg = 1 [facility] Metoprolol 6-24 tab, PO, l Tartrate 25 20:46: Daily, 0 [place] [facility] MG Extended 00 Refill(s) Release Tablet [Toprol] lisinopril Yes 2.5 mg = 1 M [facility] 2.5 mg oral 6-24 tab, PO, l tablet 20:46: Daily, 0 [place] 00 Refill(s) warfarin 1 Yes 3 mg = 3 [facility] mg oral 6-24 tab, PO, l tablet 20:46: Q5PM, 0 [place] 00 Refill(s) Furosemide 2018-0 Yes 40 mg = 1 [facility] 40 MG Oral 6-24 tab, PO, l Tablet 20:46: Daily, 0 [place] 00 Refill(s) 24 HR 2019-0 Yes 25 mg = 1 [facility] Metoprolol 6-24 tab, PO, l Tartrate 25 20:46: Daily, 0 [place] [facility] MG Extended 00 Refill(s) Release Tablet [Toprol] lisinopril 2019 Yes 2.5 mg = 1 [facility] 2.5 mg oral 6-24 tab, PO, l tablet 20:46: Daily, 0 [place] 00 Refill(s) warfarin Yes 3 mg = 3 [facility] mg oral 6-24 tab, PO, l tablet 20:46: Q5PM, 0 [place] 00 Refill(s) Furosemide Yes 40 mg = 1 [facility] 40 MG Oral 6-24 tab, PO, l Tablet 20:46: Daily, 0 [place] 00 Refill(s) 24 HR 0 Yes 25 mg = 1 [facility] Metoprolol 6-24 tab, PO, l Tartrate 25 20:46: Daily, 0 [place] MG Extended 00 Refill(s) Release Tablet [Toprol] lisinopril Yes 2.5 mg = 1 [facility] 2.5 mg oral 6-24 tab, PO, l tablet 20:46: Daily, 0 [place] 00 Refill(s) warfarin Yes 3 mg = 3 [facility] mg oral 6-24 tab, PO, l tablet 20:46: Q5PM, 0 [place] 00 Refill(s) Furosemide Yes 40 mg = 1 [facility] 40 MG Oral 6-24 tab, PO, l Tablet 20:46: Daily, 0 [place] 00 Refill(s) 24 HR 0 Yes 25 mg = 1 [facility] Metoprolol 6-24 tab, PO, l Tartrate 25 20:46: Daily, 0 [facility] MG Extended 00 Refill(s) Release Tablet [Toprol] lisinopril Yes 2.5 mg = 1 [facility] 2.5 mg oral 6-24 tab, PO, l tablet 20:46: Daily, 0 [place] 00 Refill(s) warfarin Yes 3 mg = 3 [facility] mg oral 6-24 tab, PO, l tablet 20:46: Q5PM, 0 [place] 00 Refill(s) Furosemide Yes 40 mg = 1 [facility] 40 MG Oral 6-24 tab, PO, l Tablet 20:46: Daily, 0 [place] 00 Refill(s) 24 HR 0 Yes 25 mg = 1 [facility] Metoprolol 6-24 tab, PO, l Tartrate 25 20:46: Daily, 0 [facility] [facility] Extended 00 Refill(s) Release Tablet [Toprol] lisinopril Yes 2.5 mg = 1 [facility] 2.5 mg oral 6-24 tab, PO, l tablet 20:46: Daily, 0 [place] 00 Refill(s) warfarin Yes 3 mg = 3 [facility] mg oral 6-24 tab, PO, l tablet 20:46: Q5PM, 0 [place] 00 Refill(s) Furosemide Yes 40 mg = 1 [facility] 40 MG Oral 6-24 tab, PO, l Tablet 20:46: Daily, 0 [facility] 00 Refill(s) 24 HR Yes 25 mg = 1 [facility] Metoprolol 6-24 tab, PO, l Tartrate 25 20:46: Daily, 0 [facility] MG Extended 00 Refill(s) Release Tablet [Toprol] lisinopril Yes 2.5 mg = 1 [facility] 2.5 mg oral 6-24 tab, PO, l tablet 20:46: Daily, 0 [place] 00 Refill(s) warfarin Yes 3 mg = 3 [facility] mg oral 6-24 tab, PO, l tablet 20:46: Q5PM, 0 [place] 00 Refill(s) Furosemide Yes 40 mg = 1 [facility] 40 MG Oral 6-24 tab, PO, l Tablet 20:46: Daily, 0 [place] 00 Refill(s) 24 HR Yes 25 mg = 1 [facility] Metoprolol 6-24 tab, PO, l Tartrate 25 20:46: Daily, 0 [facility] MG Extended 00 Refill(s) Release Tablet [Toprol] lisinopril Yes 2.5 mg = 1 [facility] 2.5 mg oral 6-24 tab, PO, l tablet 20:46: Daily, 0 [place] 00 Refill(s) warfarin 1 Yes 3 mg = 3 [facility] mg oral 6-24 tab, PO, l tablet 20:46: Q5PM, 0 [place] 00 Refill(s) Furosemide Yes 40 mg = 1 [facility] 40 MG Oral 6-24 tab, PO, l Tablet 20:46: Daily, 0 [place] 00 Refill(s) 24 HR Yes 25 mg = 1 [facility] Metoprolol 6-24 tab, PO, l Tartrate 25 20:46: Daily, 0 [facility] MG Extended 00 Refill(s) Release Tablet [Toprol] lisinopril Yes 2.5 mg = 1 [facility] 2.5 mg oral 6-24 tab, PO, l tablet 20:46: Daily, 0 [place] 00 Refill(s) warfarin Yes 3 mg = 3 [facility] mg oral 6-24 tab, PO, l tablet 20:46: Q5PM, 0 [place] 00 Refill(s) Furosemide Yes 40 mg = 1 [facility] 40 MG Oral 6-24 tab, PO, l Tablet 20:46: Daily, 0 [place] 00 Refill(s) 24 HR Yes 25 mg = 1 [facility] Metoprolol 6-24 tab, PO, l Tartrate 25 20:46: Daily, 0 [facility] MG Extended 00 Refill(s) Release Tablet [Toprol] lisinopril Yes 2.5 mg = 1 [facility] 2.5 mg oral 6-24 tab, PO, l tablet 20:46: Daily, 0 [place] 00 Refill(s) warfarin Yes 3 mg = 3 [facility] mg oral 6-24 tab, PO, l tablet 20:46: Q5PM, 0 [place] 00 Refill(s) Furosemide Yes 40 mg = 1 [facility] 40 MG Oral 6-24 tab, PO, l Tablet 20:46: Daily, 0 [place] 00 Refill(s) 24 HR 0 Yes 25 mg = 1 [facility] Metoprolol 6-24 tab, PO, l Tartrate 25 20:46: Daily, 0 [facility] MG Extended 00 Refill(s) Release Tablet [Toprol] lisinopril Yes 2.5 mg = 1 [facility] 2.5 mg oral 6-24 tab, PO, l tablet 20:46: Daily, 0 [facility] 00 Refill(s) warfarin Yes 3 mg = 3 [facility] mg oral 6-24 tab, PO, l tablet 20:46: Q5PM, 0 [place] 00 Refill(s) Furosemide 2019-0 Yes 40 mg = 1 [facility] 40 MG Oral 6-24 tab, PO, l Tablet 20:46: Daily, 0 [facility] 00 Refill(s) 24 HR 2019-0 Yes 25 mg = 1 [facility] Metoprolol 6-24 tab, PO, l Tartrate 25 20:46: Daily, 0 [facility] MG Extended 00 Refill(s) Release Tablet [Toprol] lisinopril 2019 Yes 2.5 mg = 1 [facility] 2.5 mg oral 6-24 tab, PO, l tablet 20:46: Daily, 0 [place] 00 Refill(s) warfarin 1 Yes 3 mg = 3 [facility] mg oral 6-24 tab, PO, l tablet 20:46: Q5PM, 0 [place] 00 Refill(s) Furosemide 2018-0 Yes 40 mg = 1 [facility] 40 MG Oral 6-24 tab, PO, l Tablet 20:46: Daily, 0 [facility] 00 Refill(s) warfarin 1 Yes 3 mg = 3 [facility] mg oral 6-24 tab, PO, l tablet 20:46: Q5PM, 0 [place] 00 Refill(s) Furosemide 2018-0 Yes 40 mg = 1 [facility] 40 MG Oral 6-24 tab, PO, l Tablet 20:46: Daily, 0 [facility] 00 Refill(s) 24 HR 2019-0 Yes 25 mg = 1 [facility] Metoprolol 6-24 tab, PO, l Tartrate 25 20:46: Daily, 0 [facility] MG Extended 00 Refill(s) Release Tablet [Toprol] lisinopril 2019 Yes 2.5 mg = 1 [facility] 2.5 mg oral 6-24 tab, PO, l tablet 20:46: Daily, 0 [facility] 00 Refill(s) 24 HR 2019-0 Yes 25 mg = 1 [facility] Metoprolol 6-24 tab, PO, l Tartrate 25 20:46: Daily, 0 [facility] MG Extended 00 Refill(s) Release Tablet [Toprol] lisinopril 2019- Yes 2.5 mg = 1 [facility] 2.5 mg oral 6-24 tab, PO, l tablet 20:46: Daily, 0 [facility] 00 Refill(s) warfarin 1 2019-0 Yes 3 mg = 3 [facility] mg oral 6-24 tab, PO, l tablet 20:46: Q5PM, 0 [facility] 00 Refill(s) Furosemide Yes 40 mg = 1 [facility] 40 MG Oral 6-24 tab, PO, l Tablet 20:46: Daily, 0 [facility] 00 Refill(s) 24 HR Yes 25 mg = 1 [facility] Metoprolol 6-24 tab, PO, l Tartrate 25 20:46: Daily, 0 [facility] MG Extended 00 Refill(s) Release Tablet [Toprol] lisinopril Yes 2.5 mg = 1 [facility] 2.5 mg oral 6-24 tab, PO, l tablet 20:46: Daily, 0 [facility] 00 Refill(s) warfarin Yes 3 mg = 3 [facility] mg oral 6-24 tab, PO, l tablet 20:46: Q5PM, 0 [facility] 00 Refill(s) Furosemide Yes 40 mg = 1 [facility] 40 MG Oral 6-24 tab, PO, l Tablet 20:46: Daily, 0 [facility] 00 Refill(s) 24 HR Yes 25 mg = 1 [facility] Metoprolol 6-24 tab, PO, l Tartrate 25 20:46: Daily, 0 [facility] MG Extended 00 Refill(s) Release Tablet [Toprol] lisinopril Yes 2.5 mg = 1 [facility] 2.5 mg oral 6-24 tab, PO, l tablet 20:46: Daily, 0 [place] 00 Refill(s) warfarin Yes 3 mg = 3 [facility] mg oral 6-24 tab, PO, l tablet 20:46: Q5PM, 0 [facility] 00 Refill(s) Furosemide Yes 40 mg = 1 [facility] 40 MG Oral 6-24 tab, PO, l Tablet 20:46: Daily, 0 [facility] 00 Refill(s) 24 HR Yes 25 mg = 1 [facility] Metoprolol 6-24 tab, PO, l Tartrate 25 20:46: Daily, 0 [facility] MG Extended 00 Refill(s) Release Tablet [Toprol] lisinopril Yes 2.5 mg = 1 [facility] 2.5 mg oral 6-24 tab, PO, l tablet 20:46: Daily, 0 [facility] 00 Refill(s) warfarin 1 Yes 3 mg = 3 [facility] mg oral 6-24 tab, PO, l tablet 20:46: Q5PM, 0 [facility] 00 Refill(s) Furosemide 2018- Yes 40 mg = 1 [facility] 40 MG Oral 6-24 tab, PO, l Tablet 20:46: Daily, 0 [place] 00 Refill(s) 24 HR 2019-0 Yes 25 mg = 1 [facility] Metoprolol 6-24 tab, PO, l Tartrate 25 20:46: Daily, 0 [facility] MG Extended 00 Refill(s) Release Tablet [Toprol] lisinopril Yes 2.5 mg = 1 [facility] 2.5 mg oral 6-24 tab, PO, l tablet 20:46: Daily, 0 [facility] 00 Refill(s) warfarin Yes 3 mg = 3 [facility] mg oral 6-24 tab, PO, l tablet 20:46: Q5PM, 0 [place] 00 Refill(s) Furosemide 2018-0 Yes 40 mg = 1 [facility] 40 MG Oral 6-24 tab, PO, l Tablet 20:46: Daily, 0 [place] 00 Refill(s) 24 HR 2018-0 Yes 25 mg = 1 [facility] Metoprolol 6-24 tab, PO, l Tartrate 25 20:46: Daily, 0 [facility] MG Extended 00 Refill(s) Release Tablet [Toprol] lisinopril Yes 2.5 mg = 1 [facility] 2.5 mg oral 6-24 tab, PO, l tablet 20:46: Daily, 0 [place] 00 Refill(s) warfarin 1 Yes 3 mg = 3 [facility] mg oral 6-24 tab, PO, l tablet 20:46: Q5PM, 0 [facility] 00 Refill(s) Furosemide 2018-0 Yes 40 mg = 1 [facility] 40 MG Oral 6-24 tab, PO, l Tablet 20:46: Daily, 0 [place] 00 Refill(s) 24 HR 2019-0 Yes 25 mg = 1 [facility] Metoprolol 6-24 tab, PO, l Tartrate 25 20:46: Daily, 0 [facility] MG Extended 00 Refill(s) Release Tablet [Toprol] lisinopril Yes 2.5 mg = 1 [facility] 2.5 mg oral 6-24 tab, PO, l tablet 20:46: Daily, 0 [place] 00 Refill(s) warfarin 1 Yes 3 mg = 3 [facility] mg oral 6-24 tab, PO, l tablet 20:46: Q5PM, 0 [facility] 00 Refill(s) Furosemide Yes 40 mg = 1 [facility] 40 MG Oral 6-24 tab, PO, l Tablet 20:46: Daily, 0 [facility] 00 Refill(s) 24 HR Yes 25 mg = 1 [facility] Metoprolol 6-24 tab, PO, l Tartrate 25 20:46: Daily, 0 [facility] MG Extended 00 Refill(s) Release Tablet [Toprol] lisinopril Yes 2.5 mg = 1 [facility] emoria 2.5 mg oral 6-24 tab, PO, l tablet 20:46: Daily, 0 Lead 00 Refill(s) warfarin Yes 3 mg = 3 Mem oria mg oral 6-24 tab, PO, l tablet 20:46: Q5PM, 0 Lead 00 Refill(s) Furosemide Yes 40 mg = 1 Me moria 40 MG Oral 6-24 tab, PO, l Tablet 20:46: Daily, 0 Vinnie 00 Refill(s) 24 HR Yes 25 mg = 1 Memoria Metoprolol 6-24 tab, PO, l Tartrate 25 20:46: Daily, 0 He rmann MG Extended 00 Refill(s) Release Tablet [Toprol] lisinopril Yes 2.5 mg = 1 M emoria 2.5 mg oral 6-24 tab, PO, l tablet 20:46: Daily, 0 Vinnie 00 Refill(s) warfarin 1 Yes 3 mg = 3 Mem oria mg oral 6-24 tab, PO, l tablet 20:46: Q5PM, 0 Vinnie 00 Refill(s) Furosemide Yes 40 mg = 1 Me moria 40 MG Oral 6-24 tab, PO, l Tablet 20:46: Daily, 0 Lead 00 Refill(s) 24 HR 2019-0 Yes 25 mg = 1 Memoria Metoprolol 6-24 tab, PO, l Tartrate 25 20:46: Daily, 0 He rmann MG Extended 00 Refill(s) Release Tablet [Toprol] lisinopril Yes 2.5 mg = 1 M emoria 2.5 mg oral 6-24 tab, PO, l tablet 20:46: Daily, 0 Vinnie 00 Refill(s) warfarin Yes 3 mg = 3 Mem oria mg oral 6-24 tab, PO, l tablet 20:46: Q5PM, 0 Vinnie 00 Refill(s) Furosemide Yes 40 mg = 1 Me moria 40 MG Oral 6-24 tab, PO, l Tablet 20:46: Daily, 0 Lead 00 Refill(s) 24 HR Yes 25 mg = 1 Memoria Metoprolol 6-24 tab, PO, l Tartrate 25 20:46: Daily, 0 He rmann MG Extended 00 Refill(s) Release Tablet [Toprol] lisinopril Yes 2.5 mg = 1 M emoria 2.5 mg oral 6-24 tab, PO, l tablet 20:46: Daily, 0 Lead 00 Refill(s) warfarin Yes 3 mg = 3 Mem oria mg oral 6-24 tab, PO, l tablet 20:46: Q5PM, 0 Lead 00 Refill(s) Furosemide Yes 40 mg = 1 Me moria 40 MG Oral 6-24 tab, PO, l Tablet 20:46: Daily, 0 Lead 00 Refill(s) 24 HR Yes 25 mg = 1 Memoria Metoprolol 6-24 tab, PO, l Tartrate 25 20:46: Daily, 0 He rmann MG Extended 00 Refill(s) Release Tablet [Toprol] lisinopril Yes 2.5 mg = 1 M emoria 2.5 mg oral 6-24 tab, PO, l tablet 20:46: Daily, 0 Lead 00 Refill(s) warfarin Yes 3 mg = 3 Mem oria mg oral 6-24 tab, PO, l tablet 20:46: Q5PM, 0 Vinnie 00 Refill(s) Furosemide Yes 40 mg = 1 Me moria 40 MG Oral 6-24 tab, PO, l Tablet 20:46: Daily, 0 Lead 00 Refill(s) 24 HR Yes 25 mg = 1 Memoria Metoprolol 6-24 tab, PO, l Tartrate 25 20:46: Daily, 0 He rmann MG Extended 00 Refill(s) Release Tablet [Toprol] lisinopril Yes 2.5 mg = 1 M emoria 2.5 mg oral 6-24 tab, PO, l tablet 20:46: Daily, 0 Vinnie 00 Refill(s) warfarin 1 Yes 3 mg = 3 Mem oria mg oral 6-24 tab, PO, l tablet 20:46: Q5PM, 0 Vinnie 00 Refill(s) Furosemide Yes 40 mg = 1 Me moria 40 MG Oral 6-24 tab, PO, l Tablet 20:46: Daily, 0 Lead 00 Refill(s) 24 HR Yes 25 mg = 1 Memoria Metoprolol 6-24 tab, PO, l Tartrate 25 20:46: Daily, 0 He rmann MG Extended 00 Refill(s) Release Tablet [Toprol] lisinopril Yes 2.5 mg = 1 M emoria 2.5 mg oral 6-24 tab, PO, l tablet 20:46: Daily, 0 Lead 00 Refill(s) Coumadin No Notes: Yaneth 6-23 Nurse to l 22:00: ensure Lead documentat ion of patient education per anticoagul ation policy. Avoid large intake of vitamin-K containing foods diet. (Same As: Coumadin) WASTE: F/P - P Waste Black; E - P Waste Black Coumadin No Notes: Yaneth 6-23 Nurse to l 22:00: ensure Vinnie 00 documentat ion of patient education per anticoagul ation policy. Avoid large intake of vitamin-K containing foods diet. (Same As: Coumadin) WASTE: F/P - P Waste Black; E - P Waste Black Coumadin No Notes: Yaneth 6-23 Nurse to l 22:00: ensure Vinnie 00 documentat ion of patient education per anticoagul ation policy. Avoid large intake of vitamin-K containing foods diet. (Same As: Coumadin) WASTE: F/P - P Waste Black; E - P Waste Black Coumadin 2019-0 No Notes: Yaneth 6-23 Nurse to l 22:00: ensure Lead 00 documentat ion of patient education per anticoagul ation policy. Avoid large intake of vitamin-K containing foods diet. (Same As: Coumadin) WASTE: F/P - P Waste Black; E - P Waste Black Coumadin 2019-0 No Notes: Yaneth 6-23 Nurse to l 22:00: ensure Lead 00 documentat ion of patient education per anticoagul ation policy. Avoid large intake of vitamin-K containing foods diet. (Same As: Coumadin) WASTE: F/P - P Waste Black; E - P Waste Black Coumadin 2019-0 No Notes: Yaneth 6-23 Nurse to l 22:00: ensure Lead 00 documentat ion of patient education per anticoagul ation policy. Avoid large intake of vitamin-K containing foods diet. (Same As: Coumadin) WASTE: F/P - P Waste Black; E - P Waste Black Coumadin 2019- No Notes: Yaneth 6-23 Nurse to l 22:00: ensure Vinnie 00 documentat ion of patient education per anticoagul ation policy. Avoid large intake of vitamin-K containing foods diet. (Same As: Coumadin) WASTE: F/P - P Waste Black; E - P Waste Black Coumadin 2019-0 No Notes: Yaneth 623 Nurse to l 22:00: ensure Vinnie 00 documentat ion of patient education per anticoagul ation policy. Avoid large intake of vitamin-K containing foods diet. (Same As: Coumadin) WASTE: F/P - P Waste Black; E - P Waste Black Coumadin 2019-0 No Notes: Yaneth 6-23 Nurse to l 22:00: ensure Vinnie 00 documentat ion of patient education per anticoagul ation policy. Avoid large intake of vitamin-K containing foods diet. (Same As: Coumadin) WASTE: F/P - P Waste Black; E - P Waste Black Coumadin 2019-0 No Notes: Yaneth 6-23 Nurse to l 22:00: ensure Vinnie 00 documentat ion of patient education per anticoagul ation policy. Avoid large intake of vitamin-K containing foods diet. (Same As: Coumadin) WASTE: F/P - P Waste Black; E - P Waste Black Coumadin 2019-0 No Notes: Yaneth 6-23 Nurse to l 22:00: ensure Vinnie 00 documentat ion of patient education per anticoagul ation policy. Avoid large intake of vitamin-K containing foods diet. (Same As: Coumadin) WASTE: F/P - P Waste Black; E - P Waste Black Coumadin 2019-0 No Notes: Yaneth 6-23 Nurse to l 22:00: ensure Lead 00 documentat ion of patient education per anticoagul ation policy. Avoid large intake of vitamin-K containing foods diet. (Same As: Coumadin) WASTE: F/P - P Waste Black; E - P Waste Black Coumadin 2019-0 No Notes: Yaneth 6-23 Nurse to l 22:00: ensure Lead 00 documentat ion of patient education per anticoagul ation policy. Avoid large intake of vitamin-K containing foods diet. (Same As: Coumadin) WASTE: F/P - P Waste Black; E - P Waste Black Coumadin 2019-0 No Notes: Yaneth 6-23 Nurse to l 22:00: ensure Lead 00 documentat ion of patient education per anticoagul ation policy. Avoid large intake of vitamin-K containing foods diet. (Same As: Coumadin) WASTE: F/P - P Waste Black; E - P Waste Black Coumadin 2019-0 No Notes: Yaneth 6-23 Nurse to l 22:00: ensure Vinnie 00 documentat ion of patient education per anticoagul ation policy. Avoid large intake of vitamin-K containing foods diet. (Same As: Coumadin) WASTE: F/P - P Waste Black; E - P Waste Black Coumadin 2019- No Notes: Yaneth 6-23 Nurse to l 22:00: ensure Vinnie 00 documentat ion of patient education per anticoagul ation policy. Avoid large intake of vitamin-K containing foods diet. (Same As: Coumadin) WASTE: F/P - P Waste Black; E - P Waste Black Coumadin 2019-0 No Notes: Yaneth 6-23 Nurse to l 22:00: ensure Lead 00 documentat ion of patient education per anticoagul ation policy. Avoid large intake of vitamin-K containing foods diet. (Same As: Coumadin) WASTE: F/P - P Waste Black; E - P Waste Black Coumadin 2019-0 No Notes: Yaneth 6-23 Nurse to l 22:00: ensure Vinnie 00 documentat ion of patient education per anticoagul ation policy. Avoid large intake of vitamin-K containing foods diet. (Same As: Coumadin) WASTE: F/P - P Waste Black; E - P Waste Black Coumadin 2019-0 No Notes: Yaneth 6-23 Nurse to l 22:00: ensure Lead 00 documentat ion of patient education per anticoagul ation policy. Avoid large intake of vitamin-K containing foods diet. (Same As: Coumadin) WASTE: F/P - P Waste Black; E - P Waste Black Coumadin 2019-0 No Notes: Memoria 6-23 Nurse to l 22:00: ensure Lead 00 documentat ion of patient education per anticoagul ation policy. Avoid large intake of vitamin-K containing foods diet. (Same As: Coumadin) WASTE: F/P - P Waste Black; E - P Waste Black Coumadin 2019-0 No Notes: Yaneth 6-23 Nurse to l 22:00: ensure Lead 00 documentat ion of patient education per anticoagul ation policy. Avoid large intake of vitamin-K containing foods diet. (Same As: Coumadin) WASTE: F/P - P Waste Black; E - P Waste Black Coumadin 2019-0 No Notes: Yaneth 6-23 Nurse to l 22:00: ensure Lead 00 documentat ion of patient education per anticoagul ation policy. Avoid large intake of vitamin-K containing foods diet. (Same As: Coumadin) WASTE: F/P - P Waste Black; E - P Waste Black Coumadin 2019-0 No Notes: Yaneth 6-23 Nurse to l 22:00: ensure Vinnie 00 documentat ion of patient education per anticoagul ation policy. Avoid large intake of vitamin-K containing foods diet. (Same As: Coumadin) WASTE: F/P - P Waste Black; E - P Waste Black Coumadin 2019-0 No Notes: Yaneth 6-23 Nurse to l 22:00: ensure Vinnie 00 documentat ion of patient education per anticoagul ation policy. Avoid large intake of vitamin-K containing foods diet. (Same As: Coumadin) WASTE: F/P - P Waste Black; E - P Waste Black Coumadin 2019-0 No Notes: Yaneth 6-23 Nurse to l 22:00: ensure Lead 00 documentat ion of patient education per anticoagul ation policy. Avoid large intake of vitamin-K containing foods diet. (Same As: Coumadin) WASTE: F/P - P Waste Black; E - P Waste Black Coumadin 2019-0 No Notes: Riaoria 6-23 Nurse to l 22:00: ensure Vinnie 00 documentat ion of patient education per anticoagul ation policy. Avoid large intake of vitamin-K containing foods diet. (Same As: Coumadin) WASTE: F/P - P Waste Black; E - P Waste Black Coumadin 2019- No Notes: Memoria 6-23 Nurse to l 22:00: ensure Lead 00 documentat ion of patient education per anticoagul ation policy. Avoid large intake of vitamin-K containing foods diet. (Same As: Coumadin) WASTE: F/P - P Waste Black; E - P Waste Black Coumadin 2019- No Notes: Riaoria 6-21 Nurse to l 22:00: ensure Lead 00 documentat ion of patient education per anticoagul ation policy. Avoid large intake of vitamin-K containing foods diet. (Same As: Coumadin) WASTE: F/P - P Waste Black; E - P Waste Black Coumadin 2019- No Notes: Riaoria 6-21 Nurse to l 22:00: ensure Vinnie 00 documentat ion of patient education per anticoagul ation policy. Avoid large intake of vitamin-K containing foods diet. (Same As: Coumadin) WASTE: F/P - P Waste Black; E - P Waste Black Coumadin 2018-0 No Notes: Riaoria 6-21 Nurse to l 22:00: ensure Vinnie 00 documentat ion of patient education per anticoagul ation policy. Avoid large intake of vitamin-K containing foods diet. (Same As: Coumadin) WASTE: F/P - P Waste Black; E - P Waste Black Coumadin 2019-0 No Notes: Riaoria 6-21 Nurse to l 22:00: ensure Lead 00 documentat ion of patient education per anticoagul ation policy. Avoid large intake of vitamin-K containing foods diet. (Same As: Coumadin) WASTE: F/P - P Waste Black; E - P Waste Black Coumadin 2019-0 No Notes: Riaoria 6-21 Nurse to l 22:00: ensure Lead 00 documentat ion of patient education per anticoagul ation policy. Avoid large intake of vitamin-K containing foods diet. (Same As: Coumadin) WASTE: F/P - P Waste Black; E - P Waste Black Coumadin 2019-0 No Notes: Memoria 6-21 Nurse to l 22:00: ensure Vinnie 00 documentat ion of patient education per anticoagul ation policy. Avoid large intake of vitamin-K containing foods diet. (Same As: Coumadin) WASTE: F/P - P Waste Black; E - P Waste Black Coumadin 2019-0 No Notes: Memoria 6-21 Nurse to l 22:00: ensure Lead 00 documentat ion of patient education per anticoagul ation policy. Avoid large intake of vitamin-K containing foods diet. (Same As: Coumadin) WASTE: F/P - P Waste Black; E - P Waste Black Coumadin 2019- No Notes: Memoria 6-21 Nurse to l 22:00: ensure Lead 00 documentat ion of patient education per anticoagul ation policy. Avoid large intake of vitamin-K containing foods diet. (Same As: Coumadin) WASTE: F/P - P Waste Black; E - P Waste Black Coumadin 2019- No Notes: Yaneth 6-21 Nurse to l 22:00: ensure Vinnie 00 documentat ion of patient education per anticoagul ation policy. Avoid large intake of vitamin-K containing foods diet. (Same As: Coumadin) WASTE: F/P - P Waste Black; E - P Waste Black Coumadin 2019-0 No Notes: Yaneth 6-21 Nurse to l 22:00: ensure Lead 00 documentat ion of patient education per anticoagul ation policy. Avoid large intake of vitamin-K containing foods diet. (Same As: Coumadin) WASTE: F/P - P Waste Black; E - P Waste Black Coumadin 2019-0 No Notes: Memoria 6-21 Nurse to l 22:00: ensure Vinnie 00 documentat ion of patient education per anticoagul ation policy. Avoid large intake of vitamin-K containing foods diet. (Same As: Coumadin) WASTE: F/P - P Waste Black; E - P Waste Black Coumadin 2019-0 No Notes: Yaneth 6-21 Nurse to l 22:00: ensure Lead 00 documentat ion of patient education per anticoagul ation policy. Avoid large intake of vitamin-K containing foods diet. (Same As: Coumadin) WASTE: F/P - P Waste Black; E - P Waste Black Coumadin 2019-0 No Notes: Memoria 6-21 Nurse to l 22:00: ensure Vinnie 00 documentat ion of patient education per anticoagul ation policy. Avoid large intake of vitamin-K containing foods diet. (Same As: Coumadin) WASTE: F/P - P Waste Black; E - P Waste Black Coumadin 2019-0 No Notes: Memoria 6-21 Nurse to l 22:00: ensure Lead 00 documentat ion of patient education per anticoagul ation policy. Avoid large intake of vitamin-K containing foods diet. (Same As: Coumadin) WASTE: F/P - P Waste Black; E - P Waste Black Coumadin 2019-0 No Notes: Memoria 6-21 Nurse to l 22:00: ensure Lead 00 documentat ion of patient education per anticoagul ation policy. Avoid large intake of vitamin-K containing foods diet. (Same As: Coumadin) WASTE: F/P - P Waste Black; E - P Waste Black Coumadin 2019-0 No Notes: Yaneth 6-21 Nurse to l 22:00: ensure Vinnie 00 documentat ion of patient education per anticoagul ation policy. Avoid large intake of vitamin-K containing foods diet. (Same As: Coumadin) WASTE: F/P - P Waste Black; E - P Waste Black Coumadin 2019-0 No Notes: Riaoria 6-21 Nurse to l 22:00: ensure Vinnie 00 documentat ion of patient education per anticoagul ation policy. Avoid large intake of vitamin-K containing foods diet. (Same As: Coumadin) WASTE: F/P - P Waste Black; E - P Waste Black Coumadin 2019- No Notes: Memoria 6-21 Nurse to l 22:00: ensure Vinnie 00 documentat ion of patient education per anticoagul ation policy. Avoid large intake of vitamin-K containing foods diet. (Same As: Coumadin) WASTE: F/P - P Waste Black; E - P Waste Black Coumadin 2019- No Notes: Riaoria 6-21 Nurse to l 22:00: ensure Vinnie 00 documentat ion of patient education per anticoagul ation policy. Avoid large intake of vitamin-K containing foods diet. (Same As: Coumadin) WASTE: F/P - P Waste Black; E - P Waste Black Coumadin 2019- No Notes: Riaoria 6-21 Nurse to l 22:00: ensure Vinnie 00 documentat ion of patient education per anticoagul ation policy. Avoid large intake of vitamin-K containing foods diet. (Same As: Coumadin) WASTE: F/P - P Waste Black; E - P Waste Black Coumadin 2019-0 No Notes: Memoria 6-21 Nurse to l 22:00: ensure Lead 00 documentat ion of patient education per anticoagul ation policy. Avoid large intake of vitamin-K containing foods diet. (Same As: Coumadin) WASTE: F/P - P Waste Black; E - P Waste Black Coumadin 2019-0 No Notes: Memoria 6-21 Nurse to l 22:00: ensure Vinnie 00 documentat ion of patient education per anticoagul ation policy. Avoid large intake of vitamin-K containing foods diet. (Same As: Coumadin) WASTE: F/P - P Waste Black; E - P Waste Black Coumadin 2019-0 No Notes: Memoria 6-21 Nurse to l 22:00: ensure Vinnie 00 documentat ion of patient education per anticoagul ation policy. Avoid large intake of vitamin-K containing foods diet. (Same As: Coumadin) WASTE: F/P - P Waste Black; E - P Waste Black Coumadin 2019-0 No Notes: Memoria 6-21 Nurse to l 22:00: ensure Vinnie 00 documentat ion of patient education per anticoagul ation policy. Avoid large intake of vitamin-K containing foods diet. (Same As: Coumadin) WASTE: F/P - P Waste Black; E - P Waste Black Coumadin 2019-0 No Notes: Memoria 6-21 Nurse to l 22:00: ensure Vinnie 00 documentat ion of patient education per anticoagul ation policy. Avoid large intake of vitamin-K containing foods diet. (Same As: Coumadin) WASTE: F/P - P Waste Black; E - P Waste Black Coumadin 2019-0 No Notes: Memoria 6-21 Nurse to l 22:00: ensure Lead 00 documentat ion of patient education per anticoagul ation policy. Avoid large intake of vitamin-K containing foods diet. (Same As: Coumadin) WASTE: F/P - P Waste Black; E - P Waste Black Coumadin 2019-0 No Notes: Memoria 6-21 Nurse to l 22:00: ensure Vinnie 00 documentat ion of patient education per anticoagul ation policy. Avoid large intake of vitamin-K containing foods diet. (Same As: Coumadin) WASTE: F/P - P Waste Black; E - P Waste Black Coumadin 2019- No Notes: Memoria 6-20 Nurse to l 22:00: ensure Vinnie 00 documentat ion of patient education per anticoagul ation policy. Avoid large intake of vitamin-K containing foods diet. (Same As: Coumadin) WASTE: F/P - P Waste Black; E - P Waste Black Coumadin 2019- No Notes: Memoria 6-20 Nurse to l 22:00: ensure Lead 00 documentat ion of patient education per anticoagul ation policy. Avoid large intake of vitamin-K containing foods diet. (Same As: Coumadin) WASTE: F/P - P Waste Black; E - P Waste Black Coumadin 2019- No Notes: Memoria 6-20 Nurse to l 22:00: ensure Vinnie 00 documentat ion of patient education per anticoagul ation policy. Avoid large intake of vitamin-K containing foods diet. (Same As: Coumadin) WASTE: F/P - P Waste Black; E - P Waste Black Coumadin 2019 No Notes: Memoria 6-20 Nurse to l 22:00: ensure Lead 00 documentat ion of patient education per anticoagul ation policy. Avoid large intake of vitamin-K containing foods diet. (Same As: Coumadin) WASTE: F/P - P Waste Black; E - P Waste Black Coumadin 2018- No Notes: Memoria 6-20 Nurse to l 22:00: ensure Vinnie 00 documentat ion of patient education per anticoagul ation policy. Avoid large intake of vitamin-K containing foods diet. (Same As: Coumadin) WASTE: F/P - P Waste Black; E - P Waste Black Coumadin 2019- No Notes: Memoria 6-20 Nurse to l 22:00: ensure Lead 00 documentat ion of patient education per anticoagul ation policy. Avoid large intake of vitamin-K containing foods diet. (Same As: Coumadin) WASTE: F/P - P Waste Black; E - P Waste Black Coumadin 2018- No Notes: Memoria 6-20 Nurse to l 22:00: ensure Vinnie 00 documentat ion of patient education per anticoagul ation policy. Avoid large intake of vitamin-K containing foods diet. (Same As: Coumadin) WASTE: F/P - P Waste Black; E - P Waste Black Coumadin 2019-0 No Notes: Memoria 6-20 Nurse to l 22:00: ensure Lead 00 documentat ion of patient education per anticoagul ation policy. Avoid large intake of vitamin-K containing foods diet. (Same As: Coumadin) WASTE: F/P - P Waste Black; E - P Waste Black Coumadin 2019-0 No Notes: Memoria 6-20 Nurse to l 22:00: ensure Vinnie 00 documentat ion of patient education per anticoagul ation policy. Avoid large intake of vitamin-K containing foods diet. (Same As: Coumadin) WASTE: F/P - P Waste Black; E - P Waste Black Coumadin 2019-0 No Notes: Memoria 6-20 Nurse to l 22:00: ensure Vinnie 00 documentat ion of patient education per anticoagul ation policy. Avoid large intake of vitamin-K containing foods diet. (Same As: Coumadin) WASTE: F/P - P Waste Black; E - P Waste Black Coumadin 2019-0 No Notes: Memoria 6-20 Nurse to l 22:00: ensure Vinnie 00 documentat ion of patient education per anticoagul ation policy. Avoid large intake of vitamin-K containing foods diet. (Same As: Coumadin) WASTE: F/P - P Waste Black; E - P Waste Black Coumadin 2019-0 No Notes: Memoria 6-20 Nurse to l 22:00: ensure Vinnie 00 documentat ion of patient education per anticoagul ation policy. Avoid large intake of vitamin-K containing foods diet. (Same As: Coumadin) WASTE: F/P - P Waste Black; E - P Waste Black Coumadin 2019-0 No Notes: Memoria 6-20 Nurse to l 22:00: ensure Lead 00 documentat ion of patient education per anticoagul ation policy. Avoid large intake of vitamin-K containing foods diet. (Same As: Coumadin) WASTE: F/P - P Waste Black; E - P Waste Black Coumadin 2019-0 No Notes: Memoria 6-20 Nurse to l 22:00: ensure Vinnie 00 documentat ion of patient education per anticoagul ation policy. Avoid large intake of vitamin-K containing foods diet. (Same As: Coumadin) WASTE: F/P - P Waste Black; E - P Waste Black Coumadin 2019-0 No Notes: Memoria 6-20 Nurse to l 22:00: ensure Vinnie 00 documentat ion of patient education per anticoagul ation policy. Avoid large intake of vitamin-K containing foods diet. (Same As: Coumadin) WASTE: F/P - P Waste Black; E - P Waste Black Coumadin 2019-0 No Notes: Memoria 6-20 Nurse to l 22:00: ensure Lead 00 documentat ion of patient education per anticoagul ation policy. Avoid large intake of vitamin-K containing foods diet. (Same As: Coumadin) WASTE: F/P - P Waste Black; E - P Waste Black Coumadin 2019- No Notes: Memoria 6-20 Nurse to l 22:00: ensure Vinnie 00 documentat ion of patient education per anticoagul ation policy. Avoid large intake of vitamin-K containing foods diet. (Same As: Coumadin) WASTE: F/P - P Waste Black; E - P Waste Black Coumadin 2019- No Notes: Memoria 6-20 Nurse to l 22:00: ensure Vinnie 00 documentat ion of patient education per anticoagul ation policy. Avoid large intake of vitamin-K containing foods diet. (Same As: Coumadin) WASTE: F/P - P Waste Black; E - P Waste Black Coumadin 2019-0 No Notes: Memoria 6-20 Nurse to l 22:00: ensure Lead 00 documentat ion of patient education per anticoagul ation policy. Avoid large intake of vitamin-K containing foods diet. (Same As: Coumadin) WASTE: F/P - P Waste Black; E - P Waste Black Coumadin 2018- No Notes: Memoria 6-20 Nurse to l 22:00: ensure Lead 00 documentat ion of patient education per anticoagul ation policy. Avoid large intake of vitamin-K containing foods diet. (Same As: Coumadin) WASTE: F/P - P Waste Black; E - P Waste Black Coumadin 2019- No Notes: Memoria 6-20 Nurse to l 22:00: ensure Lead 00 documentat ion of patient education per anticoagul ation policy. Avoid large intake of vitamin-K containing foods diet. (Same As: Coumadin) WASTE: F/P - P Waste Black; E - P Waste Black Coumadin 2019-0 No Notes: Memoria 6-20 Nurse to l 22:00: ensure Lead 00 documentat ion of patient education per anticoagul ation policy. Avoid large intake of vitamin-K containing foods diet. (Same As: Coumadin) WASTE: F/P - P Waste Black; E - P Waste Black Coumadin No Notes: Memoria 6-20 Nurse to l 22:00: ensure Vinnie 00 documentat ion of patient education per anticoagul ation policy. Avoid large intake of vitamin-K containing foods diet. (Same As: Coumadin) WASTE: F/P - P Waste Black; E - P Waste Black Coumadin No Notes: Memoria 6-20 Nurse to l 22:00: ensure Vinnie 00 documentat ion of patient education per anticoagul ation policy. Avoid large intake of vitamin-K containing foods diet. (Same As: Coumadin) WASTE: F/P - P Waste Black; E - P Waste Black Coumadin No Notes: Memoria 6-20 Nurse to l 22:00: ensure Vinnie 00 documentat ion of patient education per anticoagul ation policy. Avoid large intake of vitamin-K containing foods diet. (Same As: Coumadin) WASTE: F/P - P Waste Black; E - P Waste Black Coumadin No Notes: Memoria 6-20 Nurse to l 22:00: ensure Lead 00 documentat ion of patient education per anticoagul ation policy. Avoid large intake of vitamin-K containing foods diet. (Same As: Coumadin) WASTE: F/P - P Waste Black; E - P Waste Black Coumadin No Notes: Memoria 6-20 Nurse to l 22:00: ensure Vinnie 00 documentat ion of patient education per anticoagul ation policy. Avoid large intake of vitamin-K containing foods diet. (Same As: Coumadin) WASTE: F/P - P Waste Black; E - P Waste Black Saline No Notes: Memoria Flush 0.9% 6-20 (Same as: l 21:00: BD Vinnie 00 Posiflush) Saline No Notes: Memoria Flush 0.9% 6-20 (Same as: l 21:00: BD Vinnie 00 Posiflush) Saline No Notes: Memoria Flush 0.9% 6-20 (Same as: l 21:00: BD Lead 00 Posiflush) Saline No Notes: Memoria Flush 0.9% 6-20 (Same as: l 21:00: BD Lead 00 Posiflush) Saline No Notes: Memoria Flush 0.9% 6-20 (Same as: l 21:00: BD Lead 00 Posiflush) Saline No Notes: Memoria Flush 0.9% 6-20 (Same as: l 21:00: BD Vinnie 00 Posiflush) Saline No Notes: Memoria Flush 0.9% 6-20 (Same as: l 21:00: BD Lead 00 Posiflush) Saline No Notes: Memoria Flush 0.9% 6-20 (Same as: l 21:00: BD Lead 00 Posiflush) Saline No Notes: Memoria Flush 0.9% 6-20 (Same as: l 21:00: BD Lead 00 Posiflush) Saline No Notes: Memoria Flush 0.9% 6-20 (Same as: l 21:00: BD Vinnie 00 Posiflush) Saline No Notes: Memoria Flush 0.9% 6-20 (Same as: l 21:00: BD Vinnie 00 Posiflush) Saline No Notes: Memoria Flush 0.9% 6-20 (Same as: l 21:00: BD Vinnie 00 Posiflush) Saline No Notes: Memoria Flush 0.9% 6-20 (Same as: l 21:00: BD Vinnie 00 Posiflush) Saline No Notes: Memoria Flush 0.9% 6-20 (Same as: l 21:00: BD Lead 00 Posiflush) Saline No Notes: Memoria Flush 0.9% 6-20 (Same as: l 21:00: BD Vinnie 00 Posiflush) Saline No Notes: Memoria Flush 0.9% 6-20 (Same as: l 21:00: BD Vinnie 00 Posiflush) Saline No Notes: Memoria Flush 0.9% 6-20 (Same as: l 21:00: BD Vinnie 00 Posiflush) Saline No Notes: Memoria Flush 0.9% 6-20 (Same as: l 21:00: BD Lead 00 Posiflush) Saline No Notes: Memoria Flush 0.9% 6-20 (Same as: l 21:00: BD Vinnie 00 Posiflush) Saline No Notes: Memoria Flush 0.9% 6-20 (Same as: l 21:00: BD Vinnie 00 Posiflush) Saline No Notes: Memoria Flush 0.9% 6-20 (Same as: l 21:00: BD Lead 00 Posiflush) Saline No Notes: Memoria Flush 0.9% 6-20 (Same as: l 21:00: BD Lead 00 Posiflush) Saline No Notes: Memoria Flush 0.9% 6-20 (Same as: l 21:00: BD Vinnie 00 Posiflush) Saline No Notes: Memoria Flush 0.9% 6-20 (Same as: l 21:00: BD Lead 00 Posiflush) Saline No Notes: Memoria Flush 0.9% 6-20 (Same as: l 21:00: BD Lead 00 Posiflush) Saline No Notes: Memoria Flush 0.9% 6-20 (Same as: l 21:00: BD Vinnie 00 Posiflush) Saline No Notes: Memoria Flush 0.9% 6-20 (Same as: l 21:00: BD Vinnie 00 Posiflush) Lidocaine No Notes: Memori a Hydrochlori 6-20 Preservati l de 10 MG/ML 16:00: ve free. He rmann Injectable 00 (Same as: Solution Xylocaine MPF) Lidocaine No Notes: Memori a Hydrochlori 6-20 Preservati l de 10 MG/ML 16:00: ve free. He rmann Injectable 00 (Same as: Solution Xylocaine MPF) Lidocaine No Notes: Memori a Hydrochlori 6-20 Preservati l de 10 MG/ML 16:00: ve free. He rmann Injectable 00 (Same as: Solution Xylocaine MPF) Lidocaine No Notes: Memori a Hydrochlori 6-20 Preservati l de 10 MG/ML 16:00: ve free. He rmann Injectable 00 (Same as: Solution Xylocaine MPF) Lidocaine No Notes: Memori a Hydrochlori 6-20 Preservati l de 10 MG/ML 16:00: ve free. He rmann Injectable 00 (Same as: Solution Xylocaine MPF) Lidocaine No Notes: Memori a Hydrochlori 6-20 Preservati l de 10 MG/ML 16:00: ve free. He rmann Injectable 00 (Same as: Solution Xylocaine MPF) Lidocaine No Notes: Memori a Hydrochlori 6-20 Preservati l de 10 MG/ML 16:00: ve free. He rmann Injectable 00 (Same as: Solution Xylocaine MPF) Lidocaine No Notes: Memori a Hydrochlori 6-20 Preservati l de 10 MG/ML 16:00: ve free. He rmann Injectable 00 (Same as: Solution Xylocaine MPF) Lidocaine No Notes: Memori a Hydrochlori 6-20 Preservati l de 10 MG/ML 16:00: ve free. He rmann Injectable 00 (Same as: Solution Xylocaine MPF) Lidocaine No Notes: Memori a Hydrochlori 6-20 Preservati l de 10 MG/ML 16:00: ve free. He rmann Injectable 00 (Same as: Solution Xylocaine MPF) Lidocaine No Notes: Memori a Hydrochlori 6-20 Preservati l de 10 MG/ML 16:00: ve free. He rmann Injectable 00 (Same as: Solution Xylocaine MPF) Lidocaine No Notes: Memori a Hydrochlori 6-20 Preservati l de 10 MG/ML 16:00: ve free. He rmann Injectable 00 (Same as: Solution Xylocaine MPF) Lidocaine No Notes: Memori a Hydrochlori 6-20 Preservati l de 10 MG/ML 16:00: ve free. He rmann Injectable 00 (Same as: Solution Xylocaine MPF) Lidocaine No Notes: Memori a Hydrochlori 6-20 Preservati l de 10 MG/ML 16:00: ve free. He rmann Injectable 00 (Same as: Solution Xylocaine MPF) Lidocaine No Notes: Memori a Hydrochlori 6-20 Preservati l de 10 MG/ML 16:00: ve free. He rmann Injectable 00 (Same as: Solution Xylocaine MPF) Lidocaine No Notes: Memori a Hydrochlori 6-20 Preservati l de 10 MG/ML 16:00: ve free. He rmann Injectable 00 (Same as: Solution Xylocaine MPF) Lidocaine No Notes: Memori a Hydrochlori 6-20 Preservati l de 10 MG/ML 16:00: ve free. He rmann Injectable 00 (Same as: Solution Xylocaine MPF) Lidocaine No Notes: Memori a Hydrochlori 6-20 Preservati l de 10 MG/ML 16:00: ve free. He rmann Injectable 00 (Same as: Solution Xylocaine MPF) Lidocaine No Notes: Memori a Hydrochlori 6-20 Preservati l de 10 MG/ML 16:00: ve free. He rmann Injectable 00 (Same as: Solution Xylocaine MPF) Lidocaine No Notes: Memori a Hydrochlori 6-20 Preservati l de 10 MG/ML 16:00: ve free. He rmann Injectable 00 (Same as: Solution Xylocaine MPF) Lidocaine No Notes: Memori a Hydrochlori 6-20 Preservati l de 10 MG/ML 16:00: ve free. He rmann Injectable 00 (Same as: Solution Xylocaine MPF) Lidocaine No Notes: Memori a Hydrochlori 6-20 Preservati l de 10 MG/ML 16:00: ve free. He rmann Injectable 00 (Same as: Solution Xylocaine MPF) Lidocaine No Notes: Memori a Hydrochlori 6-20 Preservati l de 10 MG/ML 16:00: ve free. He rmann Injectable 00 (Same as: Solution Xylocaine MPF) Lidocaine No Notes: Memori a Hydrochlori 6-20 Preservati l de 10 MG/ML 16:00: ve free. He rmann Injectable 00 (Same as: Solution Xylocaine MPF) Lidocaine No Notes: Memori a Hydrochlori 6-20 Preservati l de 10 MG/ML 16:00: ve free. He rmann Injectable 00 (Same as: Solution Xylocaine MPF) Lidocaine No Notes: Memori a Hydrochlori 6-20 Preservati l de 10 MG/ML 16:00: ve free. He rmann Injectable 00 (Same as: Solution Xylocaine MPF) Lidocaine No Notes: Memori a Hydrochlori 6-20 Preservati l de 10 MG/ML 16:00: ve free. He rmann Injectable 00 (Same as: Solution Xylocaine MPF) Saline No Notes: Memoria Flush 0.9% 6-20 Same as: l 15:33: BD Lead 00 Posiflush Sterile Saline No Notes: Memoria Flush 0.9% 6-20 Same as: l 15:33: BD Vinnie 00 Posiflush Sterile Saline No Notes: Memoria Flush 0.9% 6-20 Same as: l 15:33: BD Vinnie 00 Posiflush Sterile Saline No Notes: Memoria Flush 0.9% 6-20 Same as: l 15:33: BD Lead 00 Posiflush Sterile Saline No Notes: Memoria Flush 0.9% 6-20 Same as: l 15:33: BD Vinnie 00 Posiflush Sterile Saline No Notes: Memoria Flush 0.9% 6-20 Same as: l 15:33: BD Vinnie 00 Posiflush Sterile Saline No Notes: Memoria Flush 0.9% 6-20 Same as: l 15:33: BD Vinnie 00 Posiflush Sterile Saline No Notes: Memoria Flush 0.9% 6-20 Same as: l 15:33: BD Vinnie 00 Posiflush Sterile Saline No Notes: Memoria Flush 0.9% 6-20 Same as: l 15:33: BD Lead 00 Posiflush Sterile Saline No Notes: Memoria Flush 0.9% 6-20 Same as: l 15:33: BD Lead 00 Posiflush Sterile Saline No Notes: Memoria Flush 0.9% 6-20 Same as: l 15:33: BD Lead 00 Posiflush Sterile Saline No Notes: Memoria Flush 0.9% 6-20 Same as: l 15:33: BD Vinnie 00 Posiflush Sterile Saline No Notes: Memoria Flush 0.9% 6-20 Same as: l 15:33: BD Lead 00 Posiflush Sterile Saline 2019 No Notes: Memoria Flush 0.9% 6-20 Same as: l 15:33: BD Lead 00 Posiflush Sterile Saline No Notes: Memoria Flush 0.9% 6-20 Same as: l 15:33: BD Vinnie 00 Posiflush Sterile Saline No Notes: Memoria Flush 0.9% 6-20 Same as: l 15:33: BD Vinnie 00 Posiflush Sterile Saline No Notes: Memoria Flush 0.9% 6-20 Same as: l 15:33: BD Lead 00 Posiflush Sterile Saline No Notes: Memoria Flush 0.9% 6-20 Same as: l 15:33: BD Vinnie 00 Posiflush Sterile Saline No Notes: Memoria Flush 0.9% 6-20 Same as: l 15:33: BD Lead 00 Posiflush Sterile Saline No Notes: Memoria Flush 0.9% 6-20 Same as: l 15:33: BD Lead 00 Posiflush Sterile Saline No Notes: Memoria Flush 0.9% 6-20 Same as: l 15:33: BD Vinnie 00 Posiflush Sterile Saline No Notes: Memoria Flush 0.9% 6-20 Same as: l 15:33: BD Lead 00 Posiflush Sterile Saline No Notes: Memoria Flush 0.9% 6-20 Same as: l 15:33: BD Vinnie 00 Posiflush Sterile Saline No Notes: Memoria Flush 0.9% 6-20 Same as: l 15:33: BD Lead 00 Posiflush Sterile Saline No Notes: Memoria Flush 0.9% 6-20 Same as: l 15:33: BD Vinnie 00 Posiflush Sterile Saline No Notes: Memoria Flush 0.9% 6-20 Same as: l 15:33: BD Lead 00 Posiflush Sterile Saline No Notes: Memoria Flush 0.9% 6-20 Same as: l 15:33: BD Lead 00 Posiflush Sterile Acetaminoph No Notes: Semaj shashi en 325 MG / 6-20 (Same as: l Hydrocodone 14:49: Virgil Salma nn Bitartrate 00 325/5) Do 5 MG Oral not exceed Tablet 4gm/day of [Virgil acetaminop 5/325] hen. Acetaminoph No Notes: Semaj shashi en 325 MG / 6-20 (Same as: l Hydrocodone 14:49: Virgil Salma nn Bitartrate 00 325/5) Do 5 MG Oral not exceed Tablet 4gm/day of [Virgil acetaminop 5/325] hen. Acetaminoph No Notes: Semaj shashi en 325 MG / 6-20 (Same as: l Hydrocodone 14:49: Virgil Salma nn Bitartrate 00 325/5) Do 5 MG Oral not exceed Tablet 4gm/day of [Virgil acetaminop 5/325] hen. Acetaminoph No Notes: Semaj shashi en 325 MG / 6-20 (Same as: l Hydrocodone 14:49: Virgil Salma nn Bitartrate 00 325/5) Do 5 MG Oral not exceed Tablet 4gm/day of [Virgil acetaminop 5/325] hen. Acetaminoph No Notes: Semaj shashi en 325 MG / 6-20 (Same as: l Hydrocodone 14:49: Virgil Salma nn Bitartrate 00 325/5) Do 5 MG Oral not exceed Tablet 4gm/day of [Virgil acetaminop 5/325] hen. Acetaminoph No Notes: Semaj shashi en 325 MG / 6-20 (Same as: l Hydrocodone 14:49: Virgil Salma nn Bitartrate 00 325/5) Do 5 MG Oral not exceed Tablet 4gm/day of [Virgil acetaminop 5/325] hen. Acetaminoph No Notes: Semaj shashi en 325 MG / 6-20 (Same as: l Hydrocodone 14:49: Virgil Salma nn Bitartrate 00 325/5) Do 5 MG Oral not exceed Tablet 4gm/day of [Virgil acetaminop 5/325] hen. Acetaminoph No Notes: Semaj shashi en 325 MG / 6-20 (Same as: l Hydrocodone 14:49: Virgil Salma nn Bitartrate 00 325/5) Do 5 MG Oral not exceed Tablet 4gm/day of [Virgil acetaminop 5/325] hen. Acetaminoph No Notes: Semaj shashi en 325 MG / 6-20 (Same as: l Hydrocodone 14:49: Virgil Salma nn Bitartrate 00 325/5) Do 5 MG Oral not exceed Tablet 4gm/day of [Virgil acetaminop 5/325] hen. Acetaminoph No Notes: Semaj shashi en 325 MG / 6-20 (Same as: l Hydrocodone 14:49: Virgil Salma nn Bitartrate 00 325/5) Do 5 MG Oral not exceed Tablet 4gm/day of [Virgil acetaminop 5/325] hen. Acetaminoph No Notes: Semaj shashi en 325 MG / 6-20 (Same as: l Hydrocodone 14:49: Virgil Salma nn Bitartrate 00 325/5) Do 5 MG Oral not exceed Tablet 4gm/day of [Virgil acetaminop 5/325] hen. Acetaminoph No Notes: Semaj shashi en 325 MG / 6-20 (Same as: l Hydrocodone 14:49: Virgil Salma nn Bitartrate 00 325/5) Do 5 MG Oral not exceed Tablet 4gm/day of [Virgil acetaminop 5/325] hen. Acetaminoph No Notes: Semaj shashi en 325 MG / 6-20 (Same as: l Hydrocodone 14:49: Virgil Salma nn Bitartrate 00 325/5) Do 5 MG Oral not exceed Tablet 4gm/day of [Virgil acetaminop 5/325] hen. Acetaminoph No Notes: Semaj shashi en 325 MG / 6-20 (Same as: l Hydrocodone 14:49: Virgil Salma nn Bitartrate 00 325/5) Do 5 MG Oral not exceed Tablet 4gm/day of [Virgil acetaminop 5/325] hen. Acetaminoph No Notes: Semaj shashi en 325 MG / 6-20 (Same as: l Hydrocodone 14:49: Virgil Salma nn Bitartrate 00 325/5) Do 5 MG Oral not exceed Tablet 4gm/day of [Virgil acetaminop 5/325] hen. Acetaminoph No Notes: Semaj shashi en 325 MG / 6-20 (Same as: l Hydrocodone 14:49: Virgil Salma nn Bitartrate 00 325/5) Do 5 MG Oral not exceed Tablet 4gm/day of [Virgil acetaminop 5/325] hen. Acetaminoph No Notes: Semaj shashi en 325 MG / 6-20 (Same as: l Hydrocodone 14:49: Virgil Salma nn Bitartrate 00 325/5) Do 5 MG Oral not exceed Tablet 4gm/day of [Virgil acetaminop 5/325] hen. Acetaminoph No Notes: Semaj shashi en 325 MG / 6-20 (Same as: l Hydrocodone 14:49: Virgil Salma nn Bitartrate 00 325/5) Do 5 MG Oral not exceed Tablet 4gm/day of [Virgil acetaminop 5/325] hen. Acetaminoph No Notes: Semaj shashi en 325 MG / 6-20 (Same as: l Hydrocodone 14:49: Virgil Salma nn Bitartrate 00 325/5) Do 5 MG Oral not exceed Tablet 4gm/day of [Virgil acetaminop 5/325] hen. Acetaminoph No Notes: Semaj shashi en 325 MG / 6-20 (Same as: l Hydrocodone 14:49: Virgil Salma nn Bitartrate 00 325/5) Do 5 MG Oral not exceed Tablet 4gm/day of [Virgil acetaminop 5/325] hen. Acetaminoph No Notes: Semaj shashi en 325 MG / 6-20 (Same as: l Hydrocodone 14:49: Virgil Salma nn Bitartrate 00 325/5) Do 5 MG Oral not exceed Tablet 4gm/day of [Virgil acetaminop 5/325] hen. Acetaminoph No Notes: Semaj shashi en 325 MG / 6-20 (Same as: l Hydrocodone 14:49: Virgil Salma nn Bitartrate 00 325/5) Do 5 MG Oral not exceed Tablet 4gm/day of [Virgil acetaminop 5/325] hen. Acetaminoph No Notes: Semaj shashi en 325 MG / 6-20 (Same as: l Hydrocodone 14:49: Virgil Salma nn Bitartrate 00 325/5) Do 5 MG Oral not exceed Tablet 4gm/day of [Virgil acetaminop 5/325] hen. Acetaminoph No Notes: Semaj shashi en 325 MG / 6-20 (Same as: l Hydrocodone 14:49: Virgil Salma nn Bitartrate 00 325/5) Do 5 MG Oral not exceed Tablet 4gm/day of [Virgil acetaminop 5/325] hen. Acetaminoph No Notes: Semaj shashi en 325 MG / 6-20 (Same as: l Hydrocodone 14:49: Virgil Salma nn Bitartrate 00 325/5) Do 5 MG Oral not exceed Tablet 4gm/day of [Virgil acetaminop 5/325] hen. Acetaminoph No Notes: Semaj shashi en 325 MG / 6-20 (Same as: l Hydrocodone 14:49: Virgil Salma nn Bitartrate 00 325/5) Do 5 MG Oral not exceed Tablet 4gm/day of [Virgil acetaminop 5/325] hen. Acetaminoph No Notes: Semaj shashi en 325 MG / 6-20 (Same as: l Hydrocodone 14:49: Virgil Salma nn Bitartrate 00 325/5) Do 5 MG Oral not exceed Tablet 4gm/day of [Virgil acetaminop 5/325] hen. Lisinopril No Notes: Memor ia 6-20 (Same as: l 14:00: Prinivil) Vinnie Lisinopril No Notes: Memor ia 6-20 (Same as: l 14:00: Prinivil) Vinnie Lisinopril No Notes: Memor ia 6-20 (Same as: l 14:00: Prinivil) Lead Lisinopril No Notes: Memor ia 6-20 (Same as: l 14:00: Prinivil) Vinnie 00 Lisinopril No Notes: Memor ia 6-20 (Same as: l 14:00: Prinivil) Lisinopril 2019-0 No Notes: Memor ia 6-20 (Same as: l 14:00: Prinivil) Vinnie Lisinopril 2019-0 No Notes: Memor ia 6-20 (Same as: l 14:00: Prinivil) Lead 00 Lisinopril 2019-0 No Notes: Memor ia 6-20 (Same as: l 14:00: Prinivil) Vinnie 00 Lisinopril 2019-0 No Notes: Memor ia 6-20 (Same as: l 14:00: Prinivil) Vinnie 00 Lisinopril 2019-0 No Notes: Memor ia 6-20 (Same as: l 14:00: Prinivil) Lead 00 Lisinopril 2019 No Notes: Memor ia 6-20 (Same as: l 14:00: Prinivil) Lead 00 Lisinopril 2019- No Notes: Memor ia 6-20 (Same as: l 14:00: Prinivil) Lisinopril 2019 No Notes: Memor ia 6-20 (Same as: l 14:00: Prinivil) Lisinopril 2019-0 No Notes: Memor ia 6-20 (Same as: l 14:00: Prinivil) Vinnie 00 Lisinopril 2019-0 No Notes: Memor ia 6-20 (Same as: l 14:00: Prinivil) Lisinopril 2019-0 No Notes: Memor ia 6-20 (Same as: l 14:00: Prinivil) Lisinopril 2019-0 No Notes: Memor ia 6-20 (Same as: l 14:00: Prinivil) Vinnie 00 Lisinopril 2019-0 No Notes: Memor ia 6-20 (Same as: l 14:00: Prinivil) Vinnie 00 Lisinopril 2019-0 No Notes: Memor ia 6-20 (Same as: l 14:00: Prinivil) Lead 00 Lisinopril 2019-0 No Notes: Memor ia 6-20 (Same as: l 14:00: Prinivil) Lisinopril 2019-0 No Notes: Memor ia 6-20 (Same as: l 14:00: Prinivil) Vinnie Lisinopril [id number] No Notes: Memor ia 6-20 (Same as: l 14:00: Prinivil) Lead 00 Lisinopril 2019 No Notes: Memor ia 6-20 (Same as: l 14:00: Prinivil) Vinnie 00 Lisinopril 0 No Notes: Memor ia 6-20 (Same as: l 14:00: Prinivil) Lead 00 Lisinopril No Notes: Memor ia 6-20 (Same as: l 14:00: Prinivil) Lead 00 Lisinopril No Notes: Memor ia 6-20 (Same as: l 14:00: Prinivil) Vinnie 00 Lisinopril No Notes: Memor ia 6-20 (Same as: l 14:00: Prinivil) Lovenox No Notes: Memoria 6-20 Nurse to l 02:00: ensure Vinnie 00 documentat ion of patient education per anticoagul ation policy. (Same as: Lovenox) Lovenox 0 No Notes: Memoria 6-20 Nurse to l 02:00: ensure Lead 00 documentat ion of patient education per anticoagul ation policy. (Same as: Lovenox) Lovenox 0 No Notes: Memoria 6-20 Nurse to l 02:00: ensure Lead 00 documentat ion of patient education per anticoagul ation policy. (Same as: Lovenox) Lovenox 0 No Notes: Memoria 6-20 Nurse to l 02:00: ensure Vinnie 00 documentat ion of patient education per anticoagul ation policy. (Same as: Lovenox) Lovenox [id number] No Notes: Memoria 6-20 Nurse to l 02:00: ensure Lead 00 documentat ion of patient education per anticoagul ation policy. (Same as: Lovenox) Lovenox [id number] No Notes: Memoria 6-20 Nurse to l 02:00: ensure Vinnie 00 documentat ion of patient education per anticoagul ation policy. (Same as: Lovenox) Lovenox [id number] No Notes: Memoria 6-20 Nurse to l 02:00: ensure Lead 00 documentat ion of patient education per anticoagul ation policy. (Same as: Lovenox) Lovenox 0 No Notes: Memoria 6-20 Nurse to l 02:00: ensure Lead 00 documentat ion of patient education per anticoagul ation policy. (Same as: Lovenox) Lovenox 0 No Notes: Memoria 6-20 Nurse to l 02:00: ensure Lead 00 documentat ion of patient education per anticoagul ation policy. (Same as: Lovenox) Lovenox 0 No Notes: Memoria 6-20 Nurse to l 02:00: ensure Vinnie 00 documentat ion of patient education per anticoagul ation policy. (Same as: Lovenox) Lovenox 0 No Notes: Memoria 6-20 Nurse to l 02:00: ensure Lead 00 documentat ion of patient education per anticoagul ation policy. (Same as: Lovenox) Lovenox No Notes: Memoria 6-20 Nurse to l 02:00: ensure Vinnie 00 documentat ion of patient education per anticoagul ation policy. (Same as: Lovenox) Lovenox 0 No Notes: Memoria 6-20 Nurse to l 02:00: ensure Lead 00 documentat ion of patient education per anticoagul ation policy. (Same as: Lovenox) Lovenox 0 No Notes: Memoria 6-20 Nurse to l 02:00: ensure Lead 00 documentat ion of patient education per anticoagul ation policy. (Same as: Lovenox) Lovenox 0 No Notes: Memoria 6-20 Nurse to l 02:00: ensure Vinnie 00 documentat ion of patient education per anticoagul ation policy. (Same as: Lovenox) Lovenox 0 No Notes: Memoria 6-20 Nurse to l 02:00: ensure Lead 00 documentat ion of patient education per anticoagul ation policy. (Same as: Lovenox) Lovenox 0 No Notes: Memoria 6-20 Nurse to l 02:00: ensure Vinnie 00 documentat ion of patient education per anticoagul ation policy. (Same as: Lovenox) Lovenox 0 No Notes: Memoria 6-20 Nurse to l 02:00: ensure Lead 00 documentat ion of patient education per anticoagul ation policy. (Same as: Lovenox) Lovenox 0 No Notes: Memoria 6-20 Nurse to l 02:00: ensure Vinnie 00 documentat ion of patient education per anticoagul ation policy. (Same as: Lovenox) Lovenox 0 No Notes: Memoria 6-20 Nurse to l 02:00: ensure Lead 00 documentat ion of patient education per anticoagul ation policy. (Same as: Lovenox) Lovenox 0 No Notes: Memoria 6-20 Nurse to l 02:00: ensure Lead 00 documentat ion of patient education per anticoagul ation policy. (Same as: Lovenox) Lovenox No Notes: Memoria 6-20 Nurse to l 02:00: ensure Vinnie 00 documentat ion of patient education per anticoagul ation policy. (Same as: Lovenox) Lovenox No Notes: Memoria 6-20 Nurse to l 02:00: ensure Lead 00 documentat ion of patient education per anticoagul ation policy. (Same as: Lovenox) Lovenox No Notes: Memoria 6-20 Nurse to l 02:00: ensure Vinnie 00 documentat ion of patient education per anticoagul ation policy. (Same as: Lovenox) Lovenox No Notes: Memoria 6-20 Nurse to l 02:00: ensure Lead 00 documentat ion of patient education per anticoagul ation policy. (Same as: Lovenox) Lovenox No Notes: Memoria 6-20 Nurse to l 02:00: ensure Lead 00 documentat ion of patient education per anticoagul ation policy. (Same as: Lovenox) Lovenox No Notes: Memoria 6-20 Nurse to l 02:00: ensure Vinnie 00 documentat ion of patient education per anticoagul ation policy. (Same as: Lovenox) meropenem 2018-0 No Notes: Memori a 03-03 Same as l 23:00: Merrem Lead 00 MEDICATION WASTE Product Size: 500 mg Product Wasted: ___ mg meropenem 2018-0 No Notes: Memori a 03-03 Same as l 23:00: Merrem Lead 00 MEDICATION WASTE Product Size: 500 mg Product Wasted: ___ mg meropenem 2019-0 No Notes: Memori a 03-03 Same as l 23:00: Merrem Lead MEDICATION WASTE Product Size: 500 mg Product Wasted: ___ mg meropenem 2019-0 No Notes: Memori a 03-03 Same as l 23:00: Merrem Vinnie 00 MEDICATION WASTE Product Size: 500 mg Product Wasted: ___ mg meropenem 2019-0 No Notes: Memori a 03-03 Same as l 23:00: Merrem Lead 00 MEDICATION WASTE Product Size: 500 mg Product Wasted: ___ mg meropenem 2019-0 No Notes: Memori a 03-03 Same as l 23:00: Merrem Vinnie 00 MEDICATION WASTE Product Size: 500 mg Product Wasted: ___ mg meropenem 2019-0 No Notes: Memori a 03-03 Same as l 23:00: Merrem Vinnie MEDICATION WASTE Product Size: 500 mg Product Wasted: ___ mg meropenem 2019-0 No Notes: Memori a 03-03 Same as l 23:00: Merrem Vinnie 00 MEDICATION WASTE Product Size: 500 mg Product Wasted: ___ mg meropenem 2019-0 No Notes: Memori a 03-03 Same as l 23:00: Merrem Vinnie 00 MEDICATION WASTE Product Size: 500 mg Product Wasted: ___ mg meropenem 2019-0 No Notes: Memori a 03-03 Same as l 23:00: Merrem Vinnie 00 MEDICATION WASTE Product Size: 500 mg Product Wasted: ___ mg meropenem 2019-0 No Notes: Memori a 03-03 Same as l 23:00: Merrem Lead MEDICATION WASTE Product Size: 500 mg Product Wasted: ___ mg meropenem 2019-0 No Notes: Memori a - Same as l 23:00: Merrem Vinnie 00 MEDICATION WASTE Product Size: 500 mg Product Wasted: ___ mg meropenem 2019-0 No Notes: Memori a - Same as l 23:00: Merrem Vinnie 00 MEDICATION WASTE Product Size: 500 mg Product Wasted: ___ mg meropenem 2019-0 No Notes: Memori a - Same as l 23:00: Merrem Vinnie MEDICATION WASTE Product Size: 500 mg Product Wasted: ___ mg meropenem 2019-0 No Notes: Memori a 03-03 Same as l 23:00: Merrem Vinnie MEDICATION WASTE Product Size: 500 mg Product Wasted: ___ mg meropenem 2019-0 No Notes: Memori a - Same as l 23:00: Merrem Vinnie MEDICATION WASTE Product Size: 500 mg Product Wasted: ___ mg meropenem 2019-0 No Notes: Memori a 03-03 Same as l 23:00: Merrem Lead 00 MEDICATION WASTE Product Size: 500 mg Product Wasted: ___ mg meropenem 2019-0 No Notes: Memori a - Same as l 23:00: Merrem Lead 00 MEDICATION WASTE Product Size: 500 mg Product Wasted: ___ mg meropenem 2019-0 No Notes: Memori a - Same as l 23:00: Merrem Vinnie 00 MEDICATION WASTE Product Size: 500 mg Product Wasted: ___ mg meropenem 2019-0 No Notes: Memori a - Same as l 23:00: Merrem Lead 00 MEDICATION WASTE Product Size: 500 mg Product Wasted: ___ mg meropenem 2019-0 No Notes: Memori a - Same as l 23:00: Merrem Lead 00 MEDICATION WASTE Product Size: 500 mg Product Wasted: ___ mg meropenem 2019-0 No Notes: Memori a - Same as l 23:00: Merrem Lead 00 MEDICATION WASTE Product Size: 500 mg Product Wasted: ___ mg meropenem 2019-0 No Notes: Memori a - Same as l 23:00: Merrem Vinnie MEDICATION WASTE Product Size: 500 mg Product Wasted: ___ mg meropenem No Notes: Memori a 6-19 Same as l 23:00: Merrem Vinnie MEDICATION WASTE Product Size: 500 mg Product Wasted: ___ mg meropenem No Notes: Memori a 6-19 Same as l 23:00: Merrem Lead MEDICATION WASTE Product Size: 500 mg Product Wasted: ___ mg meropenem No Notes: Memori a 6-19 Same as l 23:00: Merrem Vinnie MEDICATION WASTE Product Size: 500 mg Product Wasted: ___ mg meropenem No Notes: Memori a 6-19 Same as l 23:00: Merrem Lead 00 MEDICATION WASTE Product Size: 500 mg Product Wasted: ___ mg Atropine No Notes: Memoria Sulfate 6-19 (Same As: l 0.025 MG / 14:26: Lomotil) Her jin Diphenoxyla 00 MAX Adult te dose = 8 Hydrochlori tabs/day de 2.5 MG Oral Tablet [Lomotil] Atropine No Notes: Memoria Sulfate 6-19 (Same As: l 0.025 MG / 14:26: Lomotil) Her jin Diphenoxyla 00 MAX Adult te dose = 8 Hydrochlori tabs/day de 2.5 MG Oral Tablet [Lomotil] Atropine No Notes: Memoria Sulfate 6-19 (Same As: l 0.025 MG / 14:26: Lomotil) Her jin Diphenoxyla 00 MAX Adult te dose = 8 Hydrochlori tabs/day de 2.5 MG Oral Tablet [Lomotil] Atropine No Notes: Memoria Sulfate 6-19 (Same As: l 0.025 MG / 14:26: Lomotil) Her jin Diphenoxyla 00 MAX Adult te dose = 8 Hydrochlori tabs/day de 2.5 MG Oral Tablet [Lomotil] Atropine No Notes: Memoria Sulfate 6-19 (Same As: l 0.025 MG / 14:26: Lomotil) Her jin Diphenoxyla 00 MAX Adult te dose = 8 Hydrochlori tabs/day de 2.5 MG Oral Tablet [Lomotil] Atropine No Notes: Memoria Sulfate 6-19 (Same As: l 0.025 MG / 14:26: Lomotil) Her jin Diphenoxyla 00 MAX Adult te dose = 8 Hydrochlori tabs/day de 2.5 MG Oral Tablet [Lomotil] Atropine No Notes: Memoria Sulfate 6-19 (Same As: l 0.025 MG / 14:26: Lomotil) Her jin Diphenoxyla 00 MAX Adult te dose = 8 Hydrochlori tabs/day de 2.5 MG Oral Tablet [Lomotil] Atropine No Notes: Memoria Sulfate 6-19 (Same As: l 0.025 MG / 14:26: Lomotil) Her jin Diphenoxyla 00 MAX Adult te dose = 8 Hydrochlori tabs/day de 2.5 MG Oral Tablet [Lomotil] Atropine No Notes: Memoria Sulfate 6-19 (Same As: l 0.025 MG / 14:26: Lomotil) Her jin Diphenoxyla 00 MAX Adult te dose = 8 Hydrochlori tabs/day de 2.5 MG Oral Tablet [Lomotil] Atropine No Notes: Memoria Sulfate 6-19 (Same As: l 0.025 MG / 14:26: Lomotil) Her jin Diphenoxyla 00 MAX Adult te dose = 8 Hydrochlori tabs/day de 2.5 MG Oral Tablet [Lomotil] Atropine No Notes: Memoria Sulfate 6-19 (Same As: l 0.025 MG / 14:26: Lomotil) Her jin Diphenoxyla 00 MAX Adult te dose = 8 Hydrochlori tabs/day de 2.5 MG Oral Tablet [Lomotil] Atropine No Notes: Memoria Sulfate 6-19 (Same As: l 0.025 MG / 14:26: Lomotil) Her jin Diphenoxyla 00 MAX Adult te dose = 8 Hydrochlori tabs/day de 2.5 MG Oral Tablet [Lomotil] Atropine No Notes: Memoria Sulfate 6-19 (Same As: l 0.025 MG / 14:26: Lomotil) Her jin Diphenoxyla 00 MAX Adult te dose = 8 Hydrochlori tabs/day de 2.5 MG Oral Tablet [Lomotil] Atropine No Notes: Memoria Sulfate 6-19 (Same As: l 0.025 MG / 14:26: Lomotil) Her jin Diphenoxyla 00 MAX Adult te dose = 8 Hydrochlori tabs/day de 2.5 MG Oral Tablet [Lomotil] Atropine No Notes: Memoria Sulfate 6-19 (Same As: l 0.025 MG / 14:26: Lomotil) Her jin Diphenoxyla 00 MAX Adult te dose = 8 Hydrochlori tabs/day de 2.5 MG Oral Tablet [Lomotil] Atropine No Notes: Memoria Sulfate 6-19 (Same As: l 0.025 MG / 14:26: Lomotil) Her jin Diphenoxyla 00 MAX Adult te dose = 8 Hydrochlori tabs/day de 2.5 MG Oral Tablet [Lomotil] Atropine No Notes: Memoria Sulfate 6-19 (Same As: l 0.025 MG / 14:26: Lomotil) Her jin Diphenoxyla 00 MAX Adult te dose = 8 Hydrochlori tabs/day de 2.5 MG Oral Tablet [Lomotil] Atropine No Notes: Memoria Sulfate 6-19 (Same As: l 0.025 MG / 14:26: Lomotil) Her jin Diphenoxyla 00 MAX Adult te dose = 8 Hydrochlori tabs/day de 2.5 MG Oral Tablet [Lomotil] Atropine No Notes: Memoria Sulfate 6-19 (Same As: l 0.025 MG / 14:26: Lomotil) Her jin Diphenoxyla 00 MAX Adult te dose = 8 Hydrochlori tabs/day de 2.5 MG Oral Tablet [Lomotil] Atropine No Notes: Memoria Sulfate 6-19 (Same As: l 0.025 MG / 14:26: Lomotil) Her jin Diphenoxyla 00 MAX Adult te dose = 8 Hydrochlori tabs/day de 2.5 MG Oral Tablet [Lomotil] Atropine No Notes: Memoria Sulfate 6-19 (Same As: l 0.025 MG / 14:26: Lomotil) Her jin Diphenoxyla 00 MAX Adult te dose = 8 Hydrochlori tabs/day de 2.5 MG Oral Tablet [Lomotil] Atropine No Notes: Memoria Sulfate 6-19 (Same As: l 0.025 MG / 14:26: Lomotil) Her jin Diphenoxyla 00 MAX Adult te dose = 8 Hydrochlori tabs/day de 2.5 MG Oral Tablet [Lomotil] Atropine No Notes: Memoria Sulfate 6-19 (Same As: l 0.025 MG / 14:26: Lomotil) Her jin Diphenoxyla 00 MAX Adult te dose = 8 Hydrochlori tabs/day de 2.5 MG Oral Tablet [Lomotil] Atropine No Notes: Memoria Sulfate 6-19 (Same As: l 0.025 MG / 14:26: Lomotil) Her jin Diphenoxyla 00 MAX Adult te dose = 8 Hydrochlori tabs/day de 2.5 MG Oral Tablet [Lomotil] Atropine No Notes: Memoria Sulfate 6-19 (Same As: l 0.025 MG / 14:26: Lomotil) Her jin Diphenoxyla 00 MAX Adult te dose = 8 Hydrochlori tabs/day de 2.5 MG Oral Tablet [Lomotil] Atropine No Notes: Memoria Sulfate 6-19 (Same As: l 0.025 MG / 14:26: Lomotil) Her jin Diphenoxyla 00 MAX Adult te dose = 8 Hydrochlori tabs/day de 2.5 MG Oral Tablet [Lomotil] Atropine No Notes: Memoria Sulfate 6-19 (Same As: l 0.025 MG / 14:26: Lomotil) Her jin Diphenoxyla 00 MAX Adult te dose = 8 Hydrochlori tabs/day de 2.5 MG Oral Tablet [Lomotil] Coumadin No Notes: Yaneth 6-18 Nurse to l 22:00: ensure Lead documentat ion of patient education per anticoagul ation policy. Avoid large intake of vitamin-K containing foods diet. (Same As: Coumadin) WASTE: F/P - P Waste Black; E - P Waste Black Coumadin No Notes: Yaneth 6-18 Nurse to l 22:00: ensure Vinnie documentat ion of patient education per anticoagul ation policy. Avoid large intake of vitamin-K containing foods diet. (Same As: Coumadin) WASTE: F/P - P Waste Black; E - P Waste Black Coumadin 2019-0 No Notes: Yaneth 6-18 Nurse to l 22:00: ensure Vinnie 00 documentat ion of patient education per anticoagul ation policy. Avoid large intake of vitamin-K containing foods diet. (Same As: Coumadin) WASTE: F/P - P Waste Black; E - P Waste Black Coumadin 2019-0 No Notes: Yaneth 6-18 Nurse to l 22:00: ensure Vinnie 00 documentat ion of patient education per anticoagul ation policy. Avoid large intake of vitamin-K containing foods diet. (Same As: Coumadin) WASTE: F/P - P Waste Black; E - P Waste Black Coumadin 2019-0 No Notes: Yaneth 6-18 Nurse to l 22:00: ensure Lead 00 documentat ion of patient education per anticoagul ation policy. Avoid large intake of vitamin-K containing foods diet. (Same As: Coumadin) WASTE: F/P - P Waste Black; E - P Waste Black Coumadin 2019-0 No Notes: Yaneth 6-18 Nurse to l 22:00: ensure Vinnie 00 documentat ion of patient education per anticoagul ation policy. Avoid large intake of vitamin-K containing foods diet. (Same As: Coumadin) WASTE: F/P - P Waste Black; E - P Waste Black Coumadin 2019-0 No Notes: Yaneth 6-18 Nurse to l 22:00: ensure Vinnie 00 documentat ion of patient education per anticoagul ation policy. Avoid large intake of vitamin-K containing foods diet. (Same As: Coumadin) WASTE: F/P - P Waste Black; E - P Waste Black Coumadin 2019-0 No Notes: Yaneth 6-18 Nurse to l 22:00: ensure Vinnie 00 documentat ion of patient education per anticoagul ation policy. Avoid large intake of vitamin-K containing foods diet. (Same As: Coumadin) WASTE: F/P - P Waste Black; E - P Waste Black Coumadin 2019-0 No Notes: Yaneth 6-18 Nurse to l 22:00: ensure Vinnie 00 documentat ion of patient education per anticoagul ation policy. Avoid large intake of vitamin-K containing foods diet. (Same As: Coumadin) WASTE: F/P - P Waste Black; E - P Waste Black Coumadin 2019-0 No Notes: Yaneth 6-18 Nurse to l 22:00: ensure Lead 00 documentat ion of patient education per anticoagul ation policy. Avoid large intake of vitamin-K containing foods diet. (Same As: Coumadin) WASTE: F/P - P Waste Black; E - P Waste Black Coumadin 2019-0 No Notes: Riaoria 6-18 Nurse to l 22:00: ensure Vinnie 00 documentat ion of patient education per anticoagul ation policy. Avoid large intake of vitamin-K containing foods diet. (Same As: Coumadin) WASTE: F/P - P Waste Black; E - P Waste Black Coumadin 2019- No Notes: Yaneth 6-18 Nurse to l 22:00: ensure Lead 00 documentat ion of patient education per anticoagul ation policy. Avoid large intake of vitamin-K containing foods diet. (Same As: Coumadin) WASTE: F/P - P Waste Black; E - P Waste Black Coumadin 2019- No Notes: Yaneth 6-18 Nurse to l 22:00: ensure Vinnie 00 documentat ion of patient education per anticoagul ation policy. Avoid large intake of vitamin-K containing foods diet. (Same As: Coumadin) WASTE: F/P - P Waste Black; E - P Waste Black Coumadin 2019-0 No Notes: Yaneth 6-18 Nurse to l 22:00: ensure Vinnie 00 documentat ion of patient education per anticoagul ation policy. Avoid large intake of vitamin-K containing foods diet. (Same As: Coumadin) WASTE: F/P - P Waste Black; E - P Waste Black Coumadin 2019- No Notes: Yaneth 6-18 Nurse to l 22:00: ensure Vinnie 00 documentat ion of patient education per anticoagul ation policy. Avoid large intake of vitamin-K containing foods diet. (Same As: Coumadin) WASTE: F/P - P Waste Black; E - P Waste Black Coumadin 2019-0 No Notes: Yaneth 6-18 Nurse to l 22:00: ensure Vinnie 00 documentat ion of patient education per anticoagul ation policy. Avoid large intake of vitamin-K containing foods diet. (Same As: Coumadin) WASTE: F/P - P Waste Black; E - P Waste Black Coumadin 2019-0 No Notes: Memoria 6-18 Nurse to l 22:00: ensure Lead 00 documentat ion of patient education per anticoagul ation policy. Avoid large intake of vitamin-K containing foods diet. (Same As: Coumadin) WASTE: F/P - P Waste Black; E - P Waste Black Coumadin 2019-0 No Notes: Riaoria 6-18 Nurse to l 22:00: ensure Vinnie 00 documentat ion of patient education per anticoagul ation policy. Avoid large intake of vitamin-K containing foods diet. (Same As: Coumadin) WASTE: F/P - P Waste Black; E - P Waste Black Coumadin 2019-0 No Notes: Yaneth 6-18 Nurse to l 22:00: ensure Vinnie 00 documentat ion of patient education per anticoagul ation policy. Avoid large intake of vitamin-K containing foods diet. (Same As: Coumadin) WASTE: F/P - P Waste Black; E - P Waste Black Coumadin 2019-0 No Notes: Yaneth 6-18 Nurse to l 22:00: ensure Vinnie 00 documentat ion of patient education per anticoagul ation policy. Avoid large intake of vitamin-K containing foods diet. (Same As: Coumadin) WASTE: F/P - P Waste Black; E - P Waste Black Coumadin 2019-0 No Notes: Yaneth 6-18 Nurse to l 22:00: ensure Lead 00 documentat ion of patient education per anticoagul ation policy. Avoid large intake of vitamin-K containing foods diet. (Same As: Coumadin) WASTE: F/P - P Waste Black; E - P Waste Black Coumadin 2019-0 No Notes: Yaneth 6-18 Nurse to l 22:00: ensure Lead 00 documentat ion of patient education per anticoagul ation policy. Avoid large intake of vitamin-K containing foods diet. (Same As: Coumadin) WASTE: F/P - P Waste Black; E - P Waste Black Coumadin 2019-0 No Notes: Yaneth 6-18 Nurse to l 22:00: ensure Vinnie 00 documentat ion of patient education per anticoagul ation policy. Avoid large intake of vitamin-K containing foods diet. (Same As: Coumadin) WASTE: F/P - P Waste Black; E - P Waste Black Coumadin 2019-0 No Notes: Yaneth 6-18 Nurse to l 22:00: ensure Vinnie 00 documentat ion of patient education per anticoagul ation policy. Avoid large intake of vitamin-K containing foods diet. (Same As: Coumadin) WASTE: F/P - P Waste Black; E - P Waste Black Coumadin 0 No Notes: Yaneth 6-18 Nurse to l 22:00: ensure Lead 00 documentat ion of patient education per anticoagul ation policy. Avoid large intake of vitamin-K containing foods diet. (Same As: Coumadin) WASTE: F/P - P Waste Black; E - P Waste Black Coumadin 0 No Notes: Yaneth 6-18 Nurse to l 22:00: ensure Vinnie 00 documentat ion of patient education per anticoagul ation policy. Avoid large intake of vitamin-K containing foods diet. (Same As: Coumadin) WASTE: F/P - P Waste Black; E - P Waste Black Coumadin No Notes: Yaneth 6-18 Nurse to l 22:00: ensure Lead 00 documentat ion of patient education per anticoagul ation policy. Avoid large intake of vitamin-K containing foods diet. (Same As: Coumadin) WASTE: F/P - P Waste Black; E - P Waste Black metoprolol 20190 No 25 mg, Memor ia tartrate 6-17 Route: PO, l 14:55: Drug form: Vinnie 00 TAB, ONCE, Dosing Weight 75.5, kg, Start date: 03/01/19 9:55:00 CDT, Stop date: 03/01/19 9:55:00 CDT metoprolol 2019-0 No 25 mg, Memor ia tartrate 6-17 Route: PO, l 14:55: Drug form: Lead 00 TAB, ONCE, Dosing Weight 75.5, kg, Start date: 03/01/19 9:55:00 CDT, Stop date: 03/01/19 9:55:00 CDT metoprolol 2019-0 No 25 mg, Memor ia tartrate 6-17 Route: PO, l 14:55: Drug form: Lead 00 TAB, ONCE, Dosing Weight 75.5, kg, Start date: 03/01/19 9:55:00 CDT, Stop date: 03/01/19 9:55:00 CDT metoprolol 2019-0 No 25 mg, Memor ia tartrate 6-17 Route: PO, l 14:55: Drug form: Vinnie 00 TAB, ONCE, Dosing Weight 75.5, kg, Start date: 03/01/19 9:55:00 CDT, Stop date: 03/01/19 9:55:00 CDT metoprolol 2019-0 No 25 mg, Memor ia tartrate 6-17 Route: PO, l 14:55: Drug form: Lead 00 TAB, ONCE, Dosing Weight 75.5, kg, Start date: 03/01/19 9:55:00 CDT, Stop date: 03/01/19 9:55:00 CDT metoprolol 2019-0 No 25 mg, Memor ia tartrate 6-17 Route: PO, l 14:55: Drug form: Vinnie 00 TAB, ONCE, Dosing Weight 75.5, kg, Start date: 03/01/19 9:55:00 CDT, Stop date: 03/01/19 9:55:00 CDT metoprolol 2019-0 No 25 mg, Memor ia tartrate 6-17 Route: PO, l 14:55: Drug form: Vinnie 00 TAB, ONCE, Dosing Weight 75.5, kg, Start date: 03/01/19 9:55:00 CDT, Stop date: 03/01/19 9:55:00 CDT metoprolol 2019-0 No 25 mg, Memor ia tartrate 6-17 Route: PO, l 14:55: Drug form: Vinnie 00 TAB, ONCE, Dosing Weight 75.5, kg, Start date: 03/01/19 9:55:00 CDT, Stop date: 03/01/19 9:55:00 CDT metoprolol 2019-0 No 25 mg, Memor ia tartrate 6-17 Route: PO, l 14:55: Drug form: Vinnie 00 TAB, ONCE, Dosing Weight 75.5, kg, Start date: 03/01/19 9:55:00 CDT, Stop date: 03/01/19 9:55:00 CDT metoprolol 2019-0 No 25 mg, Memor ia tartrate 6-17 Route: PO, l 14:55: Drug form: Vinnie 00 TAB, ONCE, Dosing Weight 75.5, kg, Start date: 03/01/19 9:55:00 CDT, Stop date: 03/01/19 9:55:00 CDT metoprolol 2019-0 No 25 mg, Memor ia tartrate 6-17 Route: PO, l 14:55: Drug form: Vinnie 00 TAB, ONCE, Dosing Weight 75.5, kg, Start date: 03/01/19 9:55:00 CDT, Stop date: 03/01/19 9:55:00 CDT metoprolol 2019-0 No 25 mg, Memor ia tartrate 6-17 Route: PO, l 14:55: Drug form: Lead 00 TAB, ONCE, Dosing Weight 75.5, kg, Start date: 03/01/19 9:55:00 CDT, Stop date: 03/01/19 9:55:00 CDT metoprolol 2019-0 No 25 mg, Memor ia tartrate 6-17 Route: PO, l 14:55: Drug form: Lead 00 TAB, ONCE, Dosing Weight 75.5, kg, Start date: 03/01/19 9:55:00 CDT, Stop date: 03/01/19 9:55:00 CDT metoprolol 2019-0 No 25 mg, Memor ia tartrate 6-17 Route: PO, l 14:55: Drug form: Vinnie 00 TAB, ONCE, Dosing Weight 75.5, kg, Start date: 03/01/19 9:55:00 CDT, Stop date: 03/01/19 9:55:00 CDT metoprolol 2019-0 No 25 mg, Memor ia tartrate 6-17 Route: PO, l 14:55: Drug form: Vinnie 00 TAB, ONCE, Dosing Weight 75.5, kg, Start date: 03/01/19 9:55:00 CDT, Stop date: 03/01/19 9:55:00 CDT metoprolol 2019-0 No 25 mg, Memor ia tartrate 6-17 Route: PO, l 14:55: Drug form: Vinnie 00 TAB, ONCE, Dosing Weight 75.5, kg, Start date: 03/01/19 9:55:00 CDT, Stop date: 03/01/19 9:55:00 CDT metoprolol 2019-0 No 25 mg, Memor ia tartrate 6-17 Route: PO, l 14:55: Drug form: Lead 00 TAB, ONCE, Dosing Weight 75.5, kg, Start date: 03/01/19 9:55:00 CDT, Stop date: 03/01/19 9:55:00 CDT metoprolol 2019-0 No 25 mg, Memor ia tartrate 6-17 Route: PO, l 14:55: Drug form: Lead 00 TAB, ONCE, Dosing Weight 75.5, kg, Start date: 03/01/19 9:55:00 CDT, Stop date: 03/01/19 9:55:00 CDT metoprolol 2019-0 No 25 mg, Memor ia tartrate 6-17 Route: PO, l 14:55: Drug form: Lead 00 TAB, ONCE, Dosing Weight 75.5, kg, Start date: 03/01/19 9:55:00 CDT, Stop date: 03/01/19 9:55:00 CDT metoprolol 2019-0 No 25 mg, Memor ia tartrate 6-17 Route: PO, l 14:55: Drug form: Vinnie 00 TAB, ONCE, Dosing Weight 75.5, kg, Start date: 03/01/19 9:55:00 CDT, Stop date: 03/01/19 9:55:00 CDT metoprolol 2019-0 No 25 mg, Memor ia tartrate 6-17 Route: PO, l 14:55: Drug form: Vinnie 00 TAB, ONCE, Dosing Weight 75.5, kg, Start date: 03/01/19 9:55:00 CDT, Stop date: 03/01/19 9:55:00 CDT metoprolol 2019-0 No 25 mg, Memor ia tartrate 6-17 Route: PO, l 14:55: Drug form: Lead 00 TAB, ONCE, Dosing Weight 75.5, kg, Start date: 03/01/19 9:55:00 CDT, Stop date: 03/01/19 9:55:00 CDT metoprolol 2019-0 No 25 mg, Memor ia tartrate 6-17 Route: PO, l 14:55: Drug form: Lead 00 TAB, ONCE, Dosing Weight 75.5, kg, Start date: 03/01/19 9:55:00 CDT, Stop date: 03/01/19 9:55:00 CDT metoprolol 2019-0 No 25 mg, Memor ia tartrate 6-17 Route: PO, l 14:55: Drug form: Lead 00 TAB, ONCE, Dosing Weight 75.5, kg, Start date: 03/01/19 9:55:00 CDT, Stop date: 03/01/19 9:55:00 CDT metoprolol 2019-0 No 25 mg, Memor ia tartrate 6-17 Route: PO, l 14:55: Drug form: Lead 00 TAB, ONCE, Dosing Weight 75.5, kg, Start date: 03/01/19 9:55:00 CDT, Stop date: 03/01/19 9:55:00 CDT metoprolol 2019-0 No 25 mg, Memor ia tartrate 6-17 Route: PO, l 14:55: Drug form: Vinnie 00 TAB, ONCE, Dosing Weight 75.5, kg, Start date: 03/01/19 9:55:00 CDT, Stop date: 03/01/19 9:55:00 CDT metoprolol 2019-0 No 25 mg, Memor ia tartrate 6-17 Route: PO, l 14:55: Drug form: Vinnie 00 TAB, ONCE, Dosing Weight 75.5, kg, Start date: 03/01/19 9:55:00 CDT, Stop date: 03/01/19 9:55:00 CDT Coumadin 0 No Notes: Yaneth Perea-17 Nurse to l 14:00: ensure Vinnie 00 documentat ion of patient education per anticoagul ation policy. Avoid large intake of vitamin-K containing foods diet. WASTE: F/P - P Waste Black; E - P Waste Black (Same As: Coumadin) Coumadin No Notes: Yaneth Arango17 Nurse to l 14:00: ensure Vinnie 00 documentat ion of patient education per anticoagul ation policy. Avoid large intake of vitamin-K containing foods diet. WASTE: F/P - P Waste Black; E - P Waste Black (Same As: Coumadin) Coumadin 0 No Notes: Yaneth Perea-17 Nurse to l 14:00: ensure Lead 00 documentat ion of patient education per anticoagul ation policy. Avoid large intake of vitamin-K containing foods diet. WASTE: F/P - P Waste Black; E - P Waste Black (Same As: Coumadin) Coumadin 2019-0 No Notes: Yaneth 6-17 Nurse to l 14:00: ensure Lead 00 documentat ion of patient education per anticoagul ation policy. Avoid large intake of vitamin-K containing foods diet. WASTE: F/P - P Waste Black; E - P Waste Black (Same As: Coumadin) Coumadin 2019-0 No Notes: Riaoria 6-17 Nurse to l 14:00: ensure Lead 00 documentat ion of patient education per anticoagul ation policy. Avoid large intake of vitamin-K containing foods diet. WASTE: F/P - P Waste Black; E - P Waste Black (Same As: Coumadin) Coumadin 2019 No Notes: Yaneth 6-17 Nurse to l 14:00: ensure Vinnie 00 documentat ion of patient education per anticoagul ation policy. Avoid large intake of vitamin-K containing foods diet. WASTE: F/P - P Waste Black; E - P Waste Black (Same As: Coumadin) Coumadin 2019 No Notes: Yaneth 6-17 Nurse to l 14:00: ensure Vinnie 00 documentat ion of patient education per anticoagul ation policy. Avoid large intake of vitamin-K containing foods diet. WASTE: F/P - P Waste Black; E - P Waste Black (Same As: Coumadin) Coumadin 2019 No Notes: Yaneth 6-17 Nurse to l 14:00: ensure Lead 00 documentat ion of patient education per anticoagul ation policy. Avoid large intake of vitamin-K containing foods diet. WASTE: F/P - P Waste Black; E - P Waste Black (Same As: Coumadin) Coumadin 2019 No Notes: Yaneth 6-17 Nurse to l 14:00: ensure Lead 00 documentat ion of patient education per anticoagul ation policy. Avoid large intake of vitamin-K containing foods diet. WASTE: F/P - P Waste Black; E - P Waste Black (Same As: Coumadin) Coumadin [id number] No Notes: Yaneth 6-17 Nurse to l 14:00: ensure Vinnie 00 documentat ion of patient education per anticoagul ation policy. Avoid large intake of vitamin-K containing foods diet. WASTE: F/P - P Waste Black; E - P Waste Black (Same As: Coumadin) Coumadin [id number] No Notes: Yaneth 6-17 Nurse to l 14:00: ensure Vinnie 00 documentat ion of patient education per anticoagul ation policy. Avoid large intake of vitamin-K containing foods diet. WASTE: F/P - P Waste Black; E - P Waste Black (Same As: Coumadin) Coumadin 2019-0 No Notes: Yaneth 6-17 Nurse to l 14:00: ensure Lead 00 documentat ion of patient education per anticoagul ation policy. Avoid large intake of vitamin-K containing foods diet. WASTE: F/P - P Waste Black; E - P Waste Black (Same As: Coumadin) Coumadin 2019-0 No Notes: Yaneth 6-17 Nurse to l 14:00: ensure Lead 00 documentat ion of patient education per anticoagul ation policy. Avoid large intake of vitamin-K containing foods diet. WASTE: F/P - P Waste Black; E - P Waste Black (Same As: Coumadin) Coumadin 2019-0 No Notes: Yaneth 6-17 Nurse to l 14:00: ensure Vinnie 00 documentat ion of patient education per anticoagul ation policy. Avoid large intake of vitamin-K containing foods diet. WASTE: F/P - P Waste Black; E - P Waste Black (Same As: Coumadin) Coumadin 2019-0 No Notes: Yaneth 6-17 Nurse to l 14:00: ensure Lead 00 documentat ion of patient education per anticoagul ation policy. Avoid large intake of vitamin-K containing foods diet. WASTE: F/P - P Waste Black; E - P Waste Black (Same As: Coumadin) Coumadin 2019-0 No Notes: Yaneth 6-17 Nurse to l 14:00: ensure Vinnie 00 documentat ion of patient education per anticoagul ation policy. Avoid large intake of vitamin-K containing foods diet. WASTE: F/P - P Waste Black; E - P Waste Black (Same As: Coumadin) Coumadin 2019-0 No Notes: Yaneth 6-17 Nurse to l 14:00: ensure Vinnie 00 documentat ion of patient education per anticoagul ation policy. Avoid large intake of vitamin-K containing foods diet. WASTE: F/P - P Waste Black; E - P Waste Black (Same As: Coumadin) Coumadin 2019-0 No Notes: Yaneth 6-17 Nurse to l 14:00: ensure Vinnie 00 documentat ion of patient education per anticoagul ation policy. Avoid large intake of vitamin-K containing foods diet. WASTE: F/P - P Waste Black; E - P Waste Black (Same As: Coumadin) Coumadin 2019-0 No Notes: Riaoria 6-17 Nurse to l 14:00: ensure Vinnie 00 documentat ion of patient education per anticoagul ation policy. Avoid large intake of vitamin-K containing foods diet. WASTE: F/P - P Waste Black; E - P Waste Black (Same As: Coumadin) Coumadin [id number] No Notes: Riaoria 6-17 Nurse to l 14:00: ensure Vinnie 00 documentat ion of patient education per anticoagul ation policy. Avoid large intake of vitamin-K containing foods diet. WASTE: F/P - P Waste Black; E - P Waste Black (Same As: Coumadin) Coumadin 2019- No Notes: Yaneth 6-17 Nurse to l 14:00: ensure Vinnie 00 documentat ion of patient education per anticoagul ation policy. Avoid large intake of vitamin-K containing foods diet. WASTE: F/P - P Waste Black; E - P Waste Black (Same As: Coumadin) Coumadin [id number] No Notes: Yaneth 6-17 Nurse to l 14:00: ensure Lead 00 documentat ion of patient education per anticoagul ation policy. Avoid large intake of vitamin-K containing foods diet. WASTE: F/P - P Waste Black; E - P Waste Black (Same As: Coumadin) Coumadin [id number] No Notes: Yaneth 6-17 Nurse to l 14:00: ensure Lead 00 documentat ion of patient education per anticoagul ation policy. Avoid large intake of vitamin-K containing foods diet. WASTE: F/P - P Waste Black; E - P Waste Black (Same As: Coumadin) Coumadin 2019 No Notes: Yaneth 6-17 Nurse to l 14:00: ensure Vinnie 00 documentat ion of patient education per anticoagul ation policy. Avoid large intake of vitamin-K containing foods diet. WASTE: F/P - P Waste Black; E - P Waste Black (Same As: Coumadin) Coumadin [id number] No Notes: Yaneth 6-17 Nurse to l 14:00: ensure Lead 00 documentat ion of patient education per anticoagul ation policy. Avoid large intake of vitamin-K containing foods diet. WASTE: F/P - P Waste Black; E - P Waste Black (Same As: Coumadin) Coumadin No Notes: Yaneth 6-17 Nurse to l 14:00: ensure Lead documentat ion of patient education per [facility] policy. Avoid large intake of vitamin-K containing foods diet. WASTE: F/P - P Waste Black; E - P Waste Black (Same As: Coumadin) Coumadin No Notes: Yaneth 6-17 Nurse to l 14:00: ensure Vinnie 00 documentat ion of patient education per [facility] policy. Avoid large intake of vitamin-K containing foods diet. WASTE: F/P - P Waste Black; E - P Waste Black (Same As: Coumadin) Insulin No Notes: Memoria Lispro 6-15 (Same as: l 18:10: Humalog) Roll in palms of hands gently; Do not shake vigorously . WASTE: F/P - Black; E - Municipal Trash Bin Stable for 28 days at room temperatur e. Expires in days from ____Date Glucagon 0 No 1 mg, Memoria 6-15 Route: IM, l 18:10: Drug form: PDR/INJ, PRN, Dosing Weight 75.5, kg, PRN Blood Glucose Results, Start date: 02/27/19 13:10:00 CDT, Duration: 30 day, Stop date: 03/29/19 13:09:00 CDT Dextrose No 25 gm, 50 Semaj shashi 50% Syringe 6-15 mL, Route: l 18:10: IVP, Drug Form: INJ, Dosing Weight 75.5, kg, PRN, PRN Blood Glucose Results, Start date: 02/27/19 13:10:00 CDT, Duration: 30 day, Stop date: 03/29/19 13:09:00 CDT Insulin 0 No Notes: Memoria Lispro 6-15 (Same as: l 18:10: Humalog) Roll in palms of hands gently; Do not shake vigorously . WASTE: F/P - Black; E - Municipal Trash Bin Stable for 28 days at room temperatur e. Expires in days from ____Date Glucagon 2019-0 No 1 mg, Memoria 6-15 Route: IM, l 18:10: Drug form: Lead 00 PDR/INJ, PRN, Dosing Weight 75.5, kg, PRN Blood Glucose Results, Start date: 02/27/19 13:10:00 CDT, Duration: 30 day, Stop date: 03/29/19 13:09:00 CDT Dextrose 2019-0 No 25 gm, 50 Semaj shashi 50% Syringe 6-15 mL, Route: l 18:10: IVP, Drug Lead 00 Form: INJ, Dosing Weight 75.5, kg, PRN, PRN Blood Glucose Results, Start date: 02/27/19 13:10:00 CDT, Duration: 30 day, Stop date: 03/29/19 13:09:00 CDT Insulin 2019-0 No Notes: Memoria Lispro 6-15 (Same as: l 18:10: Humalog) Lead 00 Roll in palms of hands gently; Do [...] day, Stop date: 03/29/19 13:09:00 CDT Dextrose 2019-0 No 25 gm, 50 Semaj shashi 50% Syringe 6-15 mL, Route: l 18:10: IVP, Drug Vinnie 00 Form: INJ, Dosing Weight 75.5, kg, PRN, PRN Blood Glucose Results, Start date: 02/27/19 13:10:00 CDT, Duration: 30 day, Stop date: 03/29/19 13:09:00 CDT Insulin 2019-0 No Notes: Memoria Lispro 6-15 (Same as: l 18:10: Humalog) Lead 00 Roll in palms of hands gently; Do [...] day, Stop date: 03/29/19 13:09:00 CDT Dextrose 2019-0 No 25 gm, 50 Semaj shashi 50% Syringe 6-15 mL, Route: l 18:10: IVP, Drug Lead 00 Form: INJ, Dosing Weight 75.5, kg, PRN, PRN Blood Glucose Results, Start date: 02/27/19 13:10:00 CDT, Duration: 30 day, Stop date: 03/29/19 13:09:00 CDT Insulin 2019-0 No Notes: [facility] Lispro 6-15 (Same as: l 18:10: Humalog) Vinnie 00 Roll in palms of hands gently; Do not shake vigorously . WASTE: F/P - Black; E - [employer] Trash [facility] Stable for 28 days at room temperatur e. Expires in days from ____Date Glucagon 2019-0 No 1 mg, Memoria 6-15 Route: IM, l 18:10: Drug form: Lead 00 PDR/INJ, PRN, Dosing Weight 75.5, kg, PRN Blood Glucose Results, Start date: 02/27/19 13:10:00 CDT, Duration: 30 day, Stop date: 03/29/19 13:09:00 CDT Dextrose 2019-0 No 25 gm, 50 Semaj shashi 50% Syringe 6-15 mL, Route: l 18:10: IVP, Drug Vinnie 00 Form: INJ, Dosing Weight 75.5, kg, PRN, PRN Blood Glucose Results, Start date: 02/27/19 13:10:00 CDT, Duration: 30 day, Stop date: 03/29/19 13:09:00 CDT Insulin 2019-0 No Notes: [facility] Lispro 6-15 (Same as: l 18:10: Humalog) Lead 00 Roll in palms of hands gently; Do [...] day, Stop date: 03/29/19 13:09:00 CDT Dextrose 2019-0 No 25 gm, 50 Semaj shashi 50% Syringe 6-15 mL, Route: l 18:10: IVP, Drug Vinnie 00 Form: INJ, Dosing Weight 75.5, kg, PRN, PRN Blood Glucose Results, Start date: 02/27/19 13:10:00 CDT, Duration: 30 day, Stop date: 03/29/19 13:09:00 CDT Insulin 2019-0 No Notes: [facility] Lispro 6-15 (Same as: l 18:10: Humalog) Lead 00 Roll in palms of hands gently; Do [...] day, Stop date: 03/29/19 13:09:00 CDT Dextrose 2019-0 No 25 gm, 50 Semaj shashi 50% Syringe 6-15 mL, Route: l 18:10: IVP, Drug Lead 00 Form: INJ, Dosing Weight 75.5, kg, PRN, PRN Blood Glucose Results, Start date: 02/27/19 13:10:00 CDT, Duration: 30 day, Stop date: 03/29/19 13:09:00 CDT Insulin 2019-0 No Notes: [facility] Lispro 6-15 (Same as: l 18:10: Humalog) Lead 00 Roll in palms of hands gently; Do not shake vigorously . WASTE: F/P - Black; E - [employer] Trash [facility] Stable for 28 days at room temperatur e. Expires in days from ____Date Glucagon 2019-0 No 1 mg, [facility] 6-15 Route: IM, l 18:10: Drug form: Lead 00 PDR/INJ, PRN, Dosing Weight 75.5, kg, PRN Blood Glucose Results, Start date: 02/27/19 13:10:00 CDT, Duration: 30 day, Stop date: 03/29/19 13:09:00 CDT Dextrose 2019-0 No 25 gm, 50 Semaj shashi 50% Syringe 6-15 mL, Route: l 18:10: IVP, Drug Form: INJ, Dosing Weight 75.5, kg, PRN, PRN Blood Glucose Results, Start date: 02/27/19 13:10:00 CDT, Duration: 30 day, Stop date: 03/29/19 13:09:00 CDT Insulin 2019-0 No Notes: [facility] Lispro 6-15 (Same as: l 18:10: Humalog) Vinnie 00 Roll in palms of hands gently; Do not shake vigorously . WASTE: F/P - Black; E - [employer] Trash [facility] Stable for 28 days at room temperatur e. Expires in days from ____Date Glucagon 2019-0 No 1 mg, [facility] 6-15 Route: IM, l 18:10: Drug form: Lead 00 PDR/INJ, PRN, Dosing Weight 75.5, kg, PRN Blood Glucose Results, Start date: 02/27/19 13:10:00 CDT, Duration: 30 day, Stop date: 03/29/19 13:09:00 CDT Dextrose 2019-0 No 25 gm, 50 Semaj shashi 50% Syringe 6-15 mL, Route: l 18:10: IVP, Drug Lead 00 Form: INJ, Dosing Weight 75.5, kg, PRN, PRN Blood Glucose Results, Start date: 02/27/19 13:10:00 CDT, Duration: 30 day, Stop date: 03/29/19 13:09:00 CDT Insulin 2019-0 No Notes: [facility] Lispro 6-15 (Same as: l 18:10: Humalog) Vinnie 00 Roll in palms of hands gently; Do not shake vigorously . WASTE: F/P - Black; E - [facility] Trash [facility] Stable for 28 days at room temperatur e. Expires in days from ____Date Glucagon 2019-0 No 1 mg, [facility] 6-15 Route: IM, l 18:10: Drug form: Vinnie PDR/INJ, PRN, Dosing Weight 75.5, kg, PRN Blood Glucose Results, Start date: 02/27/19 13:10:00 CDT, Duration: 30 day, Stop date: 03/29/19 13:09:00 CDT Dextrose 2019-0 No 25 gm, 50 Semaj shashi 50% Syringe 6-15 mL, Route: l 18:10: IVP, Drug Form: INJ, Dosing Weight 75.5, kg, PRN, PRN Blood Glucose Results, Start date: 02/27/19 13:10:00 CDT, Duration: 30 day, Stop date: 03/29/19 13:09:00 CDT Insulin 2019-0 No Notes: [facility] Lispro 6-15 (Same as: l 18:10: Humalog) Lead 00 Roll in palms of hands gently; Do not shake vigorously . WASTE: F/P - Black; E - [employer] Trash [facility] Stable for 28 days at room temperatur e. Expires in days from ____Date Glucagon 2019-0 No 1 mg, [facility] 6-15 Route: IM, l 18:10: Drug form: Lead 00 PDR/INJ, PRN, Dosing Weight 75.5, kg, PRN Blood Glucose Results, Start date: 02/27/19 13:10:00 CDT, Duration: 30 day, Stop date: 03/29/19 13:09:00 CDT Dextrose 2019-0 No 25 gm, 50 Semaj shashi 50% Syringe 6-15 mL, Route: l 18:10: IVP, Drug Vinnie 00 Form: INJ, Dosing Weight 75.5, kg, PRN, PRN Blood Glucose Results, Start date: 02/27/19 13:10:00 CDT, Duration: 30 day, Stop date: 03/29/19 13:09:00 CDT Insulin 2019-0 No Notes: [facility] Lispro 6-15 (Same as: l 18:10: Humalog) Lead 00 Roll in palms of hands gently; Do not shake vigorously . WASTE: F/P - Black; E - [employer] Trash Bin Stable for 28 days at room temperatur e. Expires in days from ____Date Glucagon 2019-0 No 1 mg, [facility] 6-15 Route: IM, l 18:10: Drug form: Lead 00 PDR/INJ, PRN, Dosing Weight 75.5, kg, PRN Blood Glucose Results, Start date: 02/27/19 13:10:00 CDT, Duration: 30 day, Stop date: 03/29/19 13:09:00 CDT Dextrose 2019-0 No 25 gm, 50 Semaj shashi 50% Syringe 6-15 mL, Route: l 18:10: IVP, Drug Lead 00 Form: INJ, Dosing Weight 75.5, kg, PRN, PRN Blood Glucose Results, Start date: 02/27/19 13:10:00 CDT, Duration: 30 day, Stop date: 03/29/19 13:09:00 CDT Insulin 2019-0 No Notes: [facility] Lispro 6-15 (Same as: l 18:10: Humalog) Lead 00 Roll in palms of hands gently; Do not shake vigorously . WASTE: F/P - Black; E - [employer] Trash Bin Stable for 28 days at room temperatur e. Expires in days from ____Date Glucagon 2019-0 No 1 mg, [facility] 6-15 Route: IM, l 18:10: Drug form: Lead 00 PDR/INJ, PRN, Dosing Weight 75.5, kg, PRN Blood Glucose Results, Start date: 02/27/19 13:10:00 CDT, Duration: 30 day, Stop date: 03/29/19 13:09:00 CDT Dextrose 2019-0 No 25 gm, 50 Semaj shashi 50% Syringe 6-15 mL, Route: l 18:10: IVP, Drug Lead 00 Form: INJ, Dosing Weight 75.5, kg, PRN, PRN Blood Glucose Results, Start date: 02/27/19 13:10:00 CDT, Duration: 30 day, Stop date: 03/29/19 13:09:00 CDT Insulin 2019-0 No Notes: [facility] Lispro 6-15 (Same as: l 18:10: Humalog) Lead 00 Roll in palms of hands gently; Do not shake vigorously . WASTE: F/P - Black; E - [employer] Trash Bin Stable for 28 days at room temperatur e. Expires in days from ____Date Glucagon 2019-0 No 1 mg, [facility] 6-15 Route: IM, l 18:10: Drug form: Lead 00 PDR/INJ, PRN, Dosing Weight 75.5, kg, PRN Blood Glucose Results, Start date: 02/27/19 13:10:00 CDT, Duration: 30 day, Stop date: 03/29/19 13:09:00 CDT Dextrose 2019-0 No 25 gm, 50 Semaj shashi 50% Syringe 6-15 mL, Route: l 18:10: IVP, Drug Lead 00 Form: INJ, Dosing Weight 75.5, kg, PRN, PRN Blood Glucose Results, Start date: 02/27/19 13:10:00 CDT, Duration: 30 day, Stop date: 03/29/19 13:09:00 CDT Insulin 2019-0 No Notes: [facility] Lispro 6-15 (Same as: l 18:10: Humalog) Vinnie 00 Roll in palms of hands gently; Do [...] day, Stop date: 03/29/19 13:09:00 CDT Dextrose 2019-0 No 25 gm, 50 Semaj shashi 50% Syringe 6-15 mL, Route: l 18:10: IVP, Drug Form: INJ, Dosing Weight 75.5, kg, PRN, PRN Blood Glucose Results, Start date: 02/27/19 13:10:00 CDT, Duration: 30 day, Stop date: 03/29/19 13:09:00 CDT Insulin 2019-0 No Notes: [facility] Lispro 6-15 (Same as: l 18:10: Humalog) Vinnie 00 Roll in palms of hands gently; Do [...] 30 day, Stop date: 03/29/19 13:09:00 CDT Insulin 2019-0 No Notes: [facility] Lispro 6-15 (Same as: l 18:10: Humalog) Vinnie 00 Roll in palms of hands gently; Do not shake vigorously . WASTE: F/P - Black; E - [facility] Trash Bin Stable for 28 days at room temperatur e. Expires in days from ____Date Glucagon 2019-0 No 1 mg, [facility] 6-15 Route: IM, l 18:10: Drug form: Lead 00 PDR/INJ, PRN, Dosing Weight 75.5, kg, PRN Blood Glucose Results, Start date: 02/27/19 13:10:00 CDT, Duration: 30 day, Stop date: 03/29/19 13:09:00 CDT Dextrose 2019-0 No 25 gm, 50 Semaj shashi 50% Syringe 6-15 mL, Route: l 18:10: IVP, Drug Lead 00 Form: INJ, Dosing Weight 75.5, kg, PRN, PRN Blood Glucose Results, Start date: 02/27/19 13:10:00 CDT, Duration: 30 day, Stop date: 03/29/19 13:09:00 CDT Dextrose 2019-0 No 25 gm, 50 Semaj shashi 50% Syringe 6-15 mL, Route: l 18:10: IVP, Drug Lead 00 Form: INJ, Dosing Weight 75.5, kg, PRN, PRN Blood Glucose Results, Start date: 02/27/19 13:10:00 CDT, Duration: 30 day, Stop date: 03/29/19 13:09:00 CDT Insulin 2019-0 No Notes: [facility] Lispro 6-15 (Same as: l 18:10: Humalog) Roll in palms of hands gently; Do not shake vigorously . WASTE: F/P - Black; E - [employer] Trash Bin Stable for 28 days at room temperatur e. Expires in days from ____Date Glucagon 2019-0 No 1 mg, [facility] 6-15 Route: IM, l 18:10: Drug form: Lead 00 PDR/INJ, PRN, Dosing Weight 75.5, kg, PRN Blood Glucose Results, Start date: 02/27/19 13:10:00 CDT, Duration: 30 day, Stop date: 03/29/19 13:09:00 CDT Dextrose 2019-0 No 25 gm, 50 Semaj shashi 50% Syringe 6-15 mL, Route: l 18:10: IVP, Drug Vinnie 00 Form: INJ, Dosing Weight 75.5, kg, PRN, PRN Blood Glucose Results, Start date: 02/27/19 13:10:00 CDT, Duration: 30 day, Stop date: 03/29/19 13:09:00 CDT Insulin 2019-0 No Notes: [facility] Lispro 6-15 (Same as: l 18:10: Humalog) Lead 00 Roll in palms of hands gently; Do [...] day, Stop date: 03/29/19 13:09:00 CDT Dextrose 2019-0 No 25 gm, 50 Semaj shashi 50% Syringe 6-15 mL, Route: l 18:10: IVP, Drug Vinnie 00 Form: INJ, Dosing Weight 75.5, kg, PRN, PRN Blood Glucose Results, Start date: 02/27/19 13:10:00 CDT, Duration: 30 day, Stop date: 03/29/19 13:09:00 CDT Insulin 2019-0 No Notes: [facility] Lispro 6-15 (Same as: l 18:10: Humalog) Lead 00 Roll in palms of hands gently; Do [...] day, Stop date: 03/29/19 13:09:00 CDT Dextrose 2019-0 No 25 gm, 50 Semaj shashi 50% Syringe 6-15 mL, Route: l 18:10: IVP, Drug Vinnie 00 Form: INJ, Dosing Weight 75.5, kg, PRN, PRN Blood Glucose Results, Start date: 02/27/19 13:10:00 CDT, Duration: 30 day, Stop date: 03/29/19 13:09:00 CDT Insulin 2019-0 No Notes: [facility] Lispro 6-15 (Same as: l 18:10: Humalog) Lead 00 Roll in palms of hands gently; Do [...] day, Stop date: 03/29/19 13:09:00 CDT Dextrose 2019-0 No 25 gm, 50 Semaj shashi 50% Syringe 6-15 mL, Route: l 18:10: IVP, Drug Lead 00 Form: INJ, Dosing Weight 75.5, kg, PRN, PRN Blood Glucose Results, Start date: 02/27/19 13:10:00 CDT, Duration: 30 day, Stop date: 03/29/19 13:09:00 CDT Insulin 2019-0 No Notes: [facility] Lispro 6-15 (Same as: l 18:10: Humalog) Lead 00 Roll in palms of hands gently; Do [...] day, Stop date: 03/29/19 13:09:00 CDT Dextrose 2019-0 No 25 gm, 50 Semaj shashi 50% Syringe 6-15 mL, Route: l 18:10: IVP, Drug Vinnie 00 Form: INJ, Dosing Weight 75.5, kg, PRN, PRN Blood Glucose Results, Start date: 02/27/19 13:10:00 CDT, Duration: 30 day, Stop date: 03/29/19 13:09:00 CDT Insulin 2019-0 No Notes: [facility] Lispro 6-15 (Same as: l 18:10: Humalog) Lead 00 Roll in palms of hands gently; Do not shake vigorously . WASTE: F/P - Black; E - [employer] Trash Bin Stable for 28 days at room temperatur e. Expires in days from ____Date Glucagon 2019-0 No 1 mg, [facility] 6-15 Route: IM, l 18:10: Drug form: Lead 00 PDR/INJ, PRN, Dosing Weight 75.5, kg, PRN Blood Glucose Results, Start date: 02/27/19 13:10:00 CDT, Duration: 30 day, Stop date: 03/29/19 13:09:00 CDT Dextrose 2019-0 No 25 gm, 50 Semaj shashi 50% Syringe 6-15 mL, Route: l 18:10: IVP, Drug Vinnie 00 Form: INJ, Dosing Weight 75.5, kg, PRN, PRN Blood Glucose Results, Start date: 02/27/19 13:10:00 CDT, Duration: 30 day, Stop date: 03/29/19 13:09:00 CDT Insulin 2019-0 No Notes: [facility] Lispro 6-15 (Same as: l 18:10: Humalog) Vinnie 00 Roll in palms of hands gently; Do [...] day, Stop date: 03/29/19 13:09:00 CDT Dextrose 2019-0 No 25 gm, 50 Semaj shashi 50% Syringe 6-15 mL, Route: l 18:10: IVP, Drug Lead Form: INJ, Dosing Weight 75.5, kg, PRN, PRN Blood Glucose Results, Start date: 02/27/19 13:10:00 CDT, Duration: 30 day, Stop date: 03/29/19 13:09:00 CDT Insulin 2019-0 No Notes: [facility] Lispro 6-15 (Same as: l 18:10: Humalog) Vinnie 00 Roll in palms of hands gently; Do [...] day, Stop date: 03/29/19 13:09:00 CDT Dextrose 2019-0 No 25 gm, 50 Semaj shashi 50% Syringe 6-15 mL, Route: l 18:10: IVP, Drug Vinnie 00 Form: INJ, Dosing Weight 75.5, kg, PRN, PRN Blood Glucose Results, Start date: 02/27/19 13:10:00 CDT, Duration: 30 day, Stop date: 03/29/19 13:09:00 CDT Insulin 2019-0 No Notes: [facility] Lispro 6-15 (Same as: l 18:10: Humalog) Vinnie 00 Roll in palms of hands gently; Do [...] day, Stop date: 03/29/19 13:09:00 CDT Dextrose 2019-0 No 25 gm, 50 Semaj shashi 50% Syringe 6-15 mL, Route: l 18:10: IVP, Drug Vinnie 00 Form: INJ, Dosing Weight 75.5, kg, PRN, PRN Blood Glucose Results, Start date: 02/27/19 13:10:00 CDT, Duration: 30 day, Stop date: 03/29/19 13:09:00 CDT Insulin 2019-0 No Notes: [facility] Lispro 6-15 (Same as: l 18:10: Humalog) Roll in palms of hands gently; Do not shake vigorously . WASTE: F/P - Black; E - [employer] Trash Bin Stable for 28 days at room temperatur e. Expires in days from ____Date Glucagon 2019-0 No 1 mg, [facility] 6-15 Route: IM, l 18:10: Drug form: Vinnie 00 PDR/INJ, PRN, Dosing Weight 75.5, kg, PRN Blood Glucose Results, Start date: 02/27/19 13:10:00 CDT, Duration: 30 day, Stop date: 03/29/19 13:09:00 CDT Dextrose 2019-0 No 25 gm, 50 Semaj shashi 50% Syringe 6-15 mL, Route: l 18:10: IVP, Drug Form: INJ, Dosing Weight 75.5, kg, PRN, PRN Blood Glucose Results, Start date: 02/27/19 13:10:00 CDT, Duration: 30 day, Stop date: 03/29/19 13:09:00 CDT Furosemide 2019-0 No Notes: Memor ia 40 MG Oral 6-15 (Same as: l Tablet 14:00: Lasix) January cause GI upset. Give with food or milk. 24 HR 2019-0 No Notes: [facility] Metoprolol 6-15 (Same as: l Tartrate 25 14:00: Toprol XL) Vinnie MG Extended 00 Do Not Release Crush Tablet [Toprol] Furosemide No Notes: Memor ia 40 MG Oral 6-15 (Same as: l Tablet 14:00: Lasix) May Salma nn 00 cause GI upset. Give with food or milk. 24 HR No Notes: [facility] Metoprolol 6-15 (Same as: l Tartrate 25 14:00: Toprol XL) Lead MG Extended 00 Do Not Release Crush Tablet [Toprol] Furosemide No Notes: Memor ia 40 MG Oral 6-15 (Same as: l Tablet 14:00: Lasix) May Salma nn cause GI upset. Give with food or milk. 24 HR No Notes: [facility] Metoprolol 6-15 (Same as: l Tartrate 25 14:00: Toprol XL) Lead MG Extended 00 Do Not Release Crush Tablet [Toprol] Furosemide No Notes: Memor ia 40 MG Oral 6-15 (Same as: l Tablet 14:00: Lasix) May Salma nn cause GI upset. Give with food or milk. 24 HR No Notes: [facility] Metoprolol 6-15 (Same as: l Tartrate 25 14:00: Toprol XL) Lead MG Extended 00 Do Not Release Crush Tablet [Toprol] Furosemide No Notes: Memor ia 40 MG Oral 6-15 (Same as: l Tablet 14:00: Lasix) May Salma nn cause GI upset. Give with food or milk. 24 HR No Notes: [facility] Metoprolol 6-15 (Same as: l Tartrate 25 14:00: Toprol XL) Lead MG Extended 00 Do Not Release Crush Tablet [Toprol] Furosemide No Notes: Memor ia 40 MG Oral 6-15 (Same as: l Tablet 14:00: Lasix) May Salma nn 00 cause GI upset. Give with food or milk. 24 HR No Notes: [facility] Metoprolol 6-15 (Same as: l Tartrate 25 14:00: Toprol XL) Lead MG Extended 00 Do Not Release Crush Tablet [Toprol] Furosemide No Notes: Memor ia 40 MG Oral 6-15 (Same as: l Tablet 14:00: Lasix) May Salma nn 00 cause GI upset. Give with food or milk. 24 HR No Notes: [facility] Metoprolol 6-15 (Same as: l Tartrate 25 14:00: Toprol XL) Vinnie MG Extended 00 Do Not Release Crush Tablet [Toprol] Furosemide No Notes: Memor ia 40 MG Oral 6-15 (Same as: l Tablet 14:00: Lasix) May Salma nn 00 cause GI upset. Give with food or milk. 24 HR No Notes: [facility] Metoprolol 6-15 (Same as: l Tartrate 25 14:00: Toprol XL) Vinnie MG Extended 00 Do Not Release Crush Tablet [Toprol] Furosemide No Notes: Memor ia 40 MG Oral 6-15 (Same as: l Tablet 14:00: Lasix) May Salma nn cause GI upset. Give with food or milk. 24 HR No Notes: [facility] Metoprolol 6-15 (Same as: l Tartrate 25 14:00: Toprol XL) Lead MG Extended 00 Do Not Release Crush Tablet [Toprol] Furosemide No Notes: Memor ia 40 MG Oral 6-15 (Same as: l Tablet 14:00: Lasix) May Salma nn cause GI upset. Give with food or milk. 24 HR No Notes: [facility] Metoprolol 6-15 (Same as: l Tartrate 25 14:00: Toprol XL) Lead MG Extended 00 Do Not Release Crush Tablet [Toprol] Furosemide No Notes: Memor ia 40 MG Oral 6-15 (Same as: l Tablet 14:00: Lasix) May Salma nn 00 cause GI upset. Give with food or milk. 24 HR No Notes: [facility] Metoprolol 6-15 (Same as: l Tartrate 25 14:00: Toprol XL) Lead MG Extended 00 Do Not Release Crush Tablet [Toprol] Furosemide No Notes: Memor ia 40 MG Oral 6-15 (Same as: l Tablet 14:00: Lasix) May Salma nn cause GI upset. Give with food or milk. 24 HR No Notes: [facility] Metoprolol 6-15 (Same as: l Tartrate 25 14:00: Toprol XL) Lead MG Extended 00 Do Not Release Crush Tablet [Toprol] Furosemide No Notes: Memor ia 40 MG Oral 6-15 (Same as: l Tablet 14:00: Lasix) May Salma nn 00 cause GI upset. Give with food or milk. 24 HR No Notes: [facility] Metoprolol 6-15 (Same as: l Tartrate 25 14:00: Toprol XL) Vinnie MG Extended 00 Do Not Release Crush Tablet [Toprol] Furosemide No Notes: Memor ia 40 MG Oral 6-15 (Same as: l Tablet 14:00: Lasix) May Salma nn cause GI upset. Give with food or milk. 24 HR No Notes: [facility] Metoprolol 6-15 (Same as: l Tartrate 25 14:00: Toprol XL) Lead MG Extended 00 Do Not Release Crush Tablet [Toprol] Furosemide No Notes: Memor ia 40 MG Oral 6-15 (Same as: l Tablet 14:00: Lasix) May Salma nn cause GI upset. Give with food or milk. 24 HR No Notes: [facility] Metoprolol 6-15 (Same as: l Tartrate 25 14:00: Toprol XL) Vinnie MG Extended 00 Do Not Release Crush Tablet [Toprol] Furosemide No Notes: Memor ia 40 MG Oral 6-15 (Same as: l Tablet 14:00: Lasix) May Salma nn cause GI upset. Give with food or milk. 24 HR No Notes: [facility] Metoprolol 6-15 (Same as: l Tartrate 25 14:00: Toprol XL) Vinnie MG Extended 00 Do Not Release Crush Tablet [Toprol] Furosemide No Notes: Memor ia 40 MG Oral 6-15 (Same as: l Tablet 14:00: Lasix) May Salma nn 00 cause GI upset. Give with food or milk. 24 HR No Notes: [facility] Metoprolol 6-15 (Same as: l Tartrate 25 14:00: Toprol XL) Vinnie MG Extended 00 Do Not Release Crush Tablet [Toprol] Furosemide No Notes: Memor ia 40 MG Oral 6-15 (Same as: l Tablet 14:00: Lasix) May Salma nn 00 cause GI upset. Give with food or milk. 24 HR No Notes: [facility] Metoprolol 6-15 (Same as: l Tartrate 25 14:00: Toprol XL) Vinnie MG Extended 00 Do Not Release Crush Tablet [Toprol] Furosemide No Notes: Memor ia 40 MG Oral 6-15 (Same as: l Tablet 14:00: Lasix) May Salma nn cause GI upset. Give with food or milk. 24 HR No Notes: [facility] Metoprolol 6-15 (Same as: l Tartrate 25 14:00: Toprol XL) Vinnie MG Extended 00 Do Not Release Crush Tablet [Toprol] Furosemide No Notes: Memor ia 40 MG Oral 6-15 (Same as: l Tablet 14:00: Lasix) May Salma nn cause GI upset. Give with food or milk. 24 HR No Notes: [facility] Metoprolol 6-15 (Same as: l Tartrate 25 14:00: Toprol XL) Lead MG Extended 00 Do Not Release Crush Tablet [Toprol] Furosemide No Notes: Memor ia 40 MG Oral 6-15 (Same as: l Tablet 14:00: Lasix) May Salma nn cause GI upset. Give with food or milk. 24 HR No Notes: [facility] Metoprolol 6-15 (Same as: l Tartrate 25 14:00: Toprol XL) Vinnie MG Extended 00 Do Not Release Crush Tablet [Toprol] Furosemide No Notes: Mem[facility] ia 40 MG Oral 6-15 (Same as: l Tablet 14:00: Lasix) May Salma nn 00 cause GI upset. Give with food or milk. 24 HR No Notes: [facility] Metoprolol 6-15 (Same as: l Tartrate 25 14:00: Toprol XL) Vinnie MG Extended 00 Do Not Release Crush Tablet [Toprol] Furosemide No Notes: Memor ia 40 MG Oral 6-15 (Same as: l Tablet 14:00: Lasix) May Salma nn 00 cause GI upset. Give with food or milk. 24 HR No Notes: [facility] Metoprolol 6-15 (Same as: l Tartrate 25 14:00: Toprol XL) Vinnie MG Extended 00 Do Not Release Crush Tablet [Toprol] Furosemide No Notes: Memor ia 40 MG Oral 6-15 (Same as: l Tablet 14:00: Lasix) January Salma nn cause GI upset. Give with food or milk. 24 HR No Notes: [facility] Metoprolol 6-15 (Same as: l Tartrate 25 14:00: Toprol XL) Lead MG Extended 00 Do Not Release Crush Tablet [Toprol] Furosemide No Notes: Memor ia 40 MG Oral 6-15 (Same as: l Tablet 14:00: Lasix) January Salma nn cause GI upset. Give with food or milk. 24 HR No Notes: [facility] Metoprolol 6-15 (Same as: l Tartrate 25 14:00: Toprol XL) Lead MG Extended 00 Do Not Release Crush Tablet [Toprol] Furosemide No Notes: Memor ia 40 MG Oral 6-15 (Same as: l Tablet 14:00: Lasix) January Salma nn cause GI upset. Give with food or milk. 24 HR No Notes: [facility] Metoprolol 6-15 (Same as: l Tartrate 25 14:00: Toprol XL) Lead MG Extended 00 Do Not Release Crush Tablet [Toprol] Furosemide No Notes: Memor ia 40 MG Oral 6-15 (Same as: l Tablet 14:00: Lasix) January Salma nn cause GI upset. Give with food or milk. 24 HR No Notes: [facility] Metoprolol 6-15 (Same as: l Tartrate 25 14:00: Toprol XL) Lead MG Extended 00 Do Not Release Crush Tablet [Toprol] Magnesium No Notes: Memori a Sulfate 6-14 WASTE: F/P l 16:19: - Sink; E Vinnie 00 - [facility] Magnesium No Notes: [facility] a Sulfate 6-14 WASTE: F/P l 16:19: - Sink; E Vinnie 00 - [facility] Magnesium No Notes: [facility] a Sulfate 6-14 WASTE: F/P l 16:19: - Sink; E Lead - [facility] Magnesium No Notes: [facility] a Sulfate 6-14 WASTE: F/P l 16:19: - Sink; E Lead - [facility] Magnesium No Notes: [facility] a Sulfate 6-14 WASTE: F/P l 16:19: - Sink; E Lead - [facility] Magnesium No Notes: [facility] a Sulfate 6-14 WASTE: F/P l 16:19: - Sink; E Vinnie - [facility] Magnesium No Notes: [facility] a Sulfate 6-14 WASTE: F/P l 16:19: - Sink; E Vinnie - [facility] Magnesium No Notes: [facility] a Sulfate 6-14 WASTE: F/P l 16:19: - Sink; E Lead - [facility] Magnesium No Notes: [facility] a Sulfate 6-14 WASTE: F/P l 16:19: - Sink; E Vinnie - [facility] Magnesium No Notes: [facility] a Sulfate 6-14 WASTE: F/P l 16:19: - Sink; E Lead - [facility] Magnesium No Notes: [facility] a Sulfate 6-14 WASTE: F/P l 16:19: - Sink; E Vinnie - [facility] Magnesium No Notes: [facility] a Sulfate 6-14 WASTE: F/P l 16:19: - Sink; E Lead - [facility] Magnesium No Notes: [facility] a Sulfate 6-14 WASTE: F/P l 16:19: - Sink; E Vinnie - [facility] Magnesium No Notes: [facility] a Sulfate 6-14 WASTE: F/P l 16:19: - Sink; E Lead - [facility] Magnesium No Notes: [facility] a Sulfate 6-14 WASTE: F/P l 16:19: - Sink; E Vinnie - [facility] Magnesium No Notes: [facility] a Sulfate 6-14 WASTE: F/P l 16:19: - Sink; E Vinnie - [facility] Magnesium No Notes: [facility]ori a Sulfate 6-14 WASTE: F/P l 16:19: - Sink; [facility] Magnesium No Notes: Memori a Sulfate 6-14 WASTE: F/P l 16:19: - Sink; [facility] Magnesium No Notes: Memori a Sulfate 6-14 WASTE: F/P l 16:19: - Sink; [facility] Magnesium No Notes: Memori a Sulfate 6-14 WASTE: F/P l 16:19: - Sink; [facility] Magnesium No Notes: Memori a Sulfate 6-14 WASTE: F/P l 16:19: - Sink; [facility] Magnesium No Notes: Memori a Sulfate 6-14 WASTE: F/P l 16:19: - Sink; [facility] Magnesium No Notes: Memori a Sulfate 6-14 WASTE: F/P l 16:19: - Sink; [facility] Magnesium No Notes: Memori a Sulfate 6-14 WASTE: F/P l 16:19: - Sink; [facility] Magnesium No Notes: Memori a Sulfate 6-14 WASTE: F/P l 16:19: - Sink; [facility] Magnesium No Notes: Memori a Sulfate 6-14 WASTE: F/P l 16:19: - Sink; [facility] Magnesium No Notes: Memori a Sulfate 6-14 WASTE: F/P l 16:19: - Sink; [facility] Enoxaparin No Notes: Jose Perea-14 Nurse to l 14:00: ensure Lead documentat ion of patient education per anticoagul ation policy. (Same as: Lovenox) Enoxaparin No Notes: Jose marrero 6-14 Nurse to l 14:00: ensure [facility] 00 documentat ion of patient education per anticoagul ation policy. (Same as: Lovenox) Enoxaparin 2019-0 No Notes: Memor ia 6-14 Nurse to l 14:00: ensure Lead 00 documentat ion of patient education per anticoagul ation policy. (Same as: Lovenox) Enoxaparin 2019-0 No Notes: [facility] 6-14 Nurse to l 14:00: ensure Vinnie 00 documentat ion of patient education per anticoagul ation policy. (Same as: Lovenox) Enoxaparin 2019-0 No Notes: [facility] 6-14 Nurse to l 14:00: ensure Lead 00 documentat ion of patient education per anticoagul ation policy. (Same as: Lovenox) Enoxaparin 2019-0 No Notes: [facility] 6-14 Nurse to l 14:00: ensure Vinnie 00 documentat ion of patient education per anticoagul ation policy. (Same as: Lovenox) Enoxaparin 2019-0 No Notes: [facility] 6-14 Nurse to l 14:00: ensure Lead 00 documentat ion of patient education per anticoagul ation policy. (Same as: Lovenox) Enoxaparin 2019-0 No Notes: [facility] 6-14 Nurse to l 14:00: ensure Lead 00 documentat ion of patient education per anticoagul ation policy. (Same as: Lovenox) Enoxaparin 2019-0 No Notes: [facility] 6-14 Nurse to l 14:00: ensure Lead 00 documentat ion of patient education per anticoagul ation policy. (Same as: Lovenox) Enoxaparin 2019-0 No Notes: [facility] 6-14 Nurse to l 14:00: ensure Vinnie 00 documentat ion of patient education per anticoagul ation policy. (Same as: Lovenox) Enoxaparin 2019-0 No Notes: [facility] 6-14 Nurse to l 14:00: ensure Vinnie 00 documentat ion of patient education per anticoagul ation policy. (Same as: Lovenox) Enoxaparin 2019-0 No Notes: [facility] 6-14 Nurse to l 14:00: ensure Vinnie 00 documentat ion of patient education per anticoagul ation policy. (Same as: Lovenox) Enoxaparin 2019-0 No Notes: [facility] 6-14 Nurse to l 14:00: ensure Vinnie 00 documentat ion of patient education per anticoagul ation policy. (Same as: Lovenox) Enoxaparin 2019-0 No Notes: [facility] 6-14 Nurse to l 14:00: ensure Vinnie 00 documentat ion of patient education per anticoagul ation policy. (Same as: Lovenox) Enoxaparin 2019-0 No Notes: [facility] 6-14 Nurse to l 14:00: ensure Lead 00 documentat ion of patient education per anticoagul ation policy. (Same as: Lovenox) Enoxaparin 2019-0 No Notes: [facility] 6-14 Nurse to l 14:00: ensure Vinnie 00 documentat ion of patient education per anticoagul ation policy. (Same as: Lovenox) Enoxaparin 2019-0 No Notes: [facility] 6-14 Nurse to l 14:00: ensure Vinnie 00 documentat ion of patient education per anticoagul ation policy. (Same as: Lovenox) Enoxaparin 2019- No Notes: [facility] 6-14 Nurse to l 14:00: ensure Lead 00 documentat ion of patient education per anticoagul ation policy. (Same as: Lovenox) Enoxaparin 2019 No Notes: [facility] 6-14 Nurse to l 14:00: ensure Vinnie 00 documentat ion of patient education per anticoagul ation policy. (Same as: Lovenox) Enoxaparin 2019-0 No Notes: [facility] 6-14 Nurse to l 14:00: ensure Lead 00 documentat ion of patient education per anticoagul ation policy. (Same as: Lovenox) Enoxaparin 2019-0 No Notes: [facility] 6-14 Nurse to l 14:00: ensure Vinnie 00 documentat ion of patient education per anticoagul ation policy. (Same as: Lovenox) Enoxaparin 2019-0 No Notes: [facility] 6-14 Nurse to l 14:00: ensure Vinnie 00 documentat ion of patient education per anticoagul ation policy. (Same as: Lovenox) Enoxaparin 2019-0 No Notes: [facility] 6-14 Nurse to l 14:00: ensure Lead 00 documentat ion of patient education per anticoagul ation policy. (Same as: Lovenox) Enoxaparin 2019-0 No Notes: [facility] 6-14 Nurse to l 14:00: ensure Lead 00 documentat ion of patient education per anticoagul ation policy. (Same as: Lovenox) Enoxaparin No Notes: [facility] 6-14 Nurse to l 14:00: ensure Vinnie 00 documentat ion of patient education per anticoagul ation policy. (Same as: Lovenox) Enoxaparin No Notes: [facility] 6-14 Nurse to l 14:00: ensure Lead 00 documentat ion of patient education per anticoagul ation policy. (Same as: Lovenox) Enoxaparin No Notes: [facility] 6-14 Nurse to l 14:00: ensure Lead 00 documentat ion of patient education per anticoagul ation policy. (Same as: Lovenox) metoprolol No Notes: [facility] tartrate 6-13 (Same as: l 15:34: Lopressor) metoprolol No Notes: [facility] tartrate 6-13 (Same as: l 15:34: Lopressor) metoprolol No Notes: [facility] tartrate 6-13 (Same as: l 15:34: Lopressor) metoprolol No Notes: [facility] tartrate 6-13 (Same as: l 15:34: Lopressor) metoprolol No Notes: [facility] tartrate 6-13 (Same as: l 15:34: Lopressor) metoprolol No Notes: [facility] tartrate 6-13 (Same as: l 15:34: Lopressor) Lead 00 metoprolol No Notes: [facility] tartrate 6-13 (Same as: l 15:34: Lopressor) Lead 00 metoprolol No Notes: [facility] tartrate 6-13 (Same as: l 15:34: Lopressor) Lead 00 metoprolol No Notes: [facility] tartrate 6-13 (Same as: l 15:34: Lopressor) metoprolol No Notes: [facility] tartrate 6-13 (Same as: l 15:34: Lopressor) metoprolol No Notes: [facility] tartrate 6-13 (Same as: l 15:34: Lopressor) metoprolol No Notes: [facility] tartrate 6-13 (Same as: l 15:34: Lopressor) metoprolol No Notes: [facility] tartrate 6-13 (Same as: l 15:34: Lopressor) metoprolol No Notes: [facility] tartrate 6-13 (Same as: l 15:34: Lopressor) metoprolol No Notes: [facility] tartrate 6-13 (Same as: l 15:34: Lopressor) metoprolol No Notes: [facility] tartrate 6-13 (Same as: l 15:34: Lopressor) metoprolol No Notes: [facility] tartrate 6-13 (Same as: l 15:34: Lopressor) metoprolol No Notes: [facility] tartrate 6-13 (Same as: l 15:34: Lopressor) metoprolol No Notes: [facility] tartrate 6-13 (Same as: l 15:34: Lopressor) metoprolol No Notes: [facility] tartrate 6-13 (Same as: l 15:34: Lopressor) metoprolol No Notes: [facility] tartrate 6-13 (Same as: l 15:34: Lopressor) metoprolol No Notes: [facility] tartrate 6-13 (Same as: l 15:34: Lopressor) metoprolol No Notes: [facility] tartrate 6-13 (Same as: l 15:34: Lopressor) metoprolol No Notes: [facility] tartrate 6-13 (Same as: l 15:34: Lopressor) metoprolol No Notes: [facility] tartrate 6-13 (Same as: l 15:34: Lopressor) metoprolol No Notes: [facility] tartrate 6-13 (Same as: l 15:34: Lopressor) Vinnie 00 metoprolol No Notes: [facility] tartrate 6-13 (Same as: l 15:34: Lopressor) Lead Magnesium No Notes: [facility] Sulfate 6-13 WASTE: F/P l 13:47: - Sink; E Lead - [facility] Magnesium No Notes: [facility] Sulfate 6-13 WASTE: F/P l 13:47: - Sink; E Lead - [facility] Magnesium No Notes: [facility] Sulfate 6-13 WASTE: F/P l 13:47: - Sink; E Lead - [facility] Magnesium No Notes: [facility] Sulfate 6-13 WASTE: F/P l 13:47: - Sink; E Lead - [facility] Magnesium No Notes: [facility] Sulfate 6-13 WASTE: F/P l 13:47: - Sink; E Lead - [facility] Magnesium No Notes: [facility] Sulfate 6-13 WASTE: F/P l 13:47: - Sink; E Vinnie - [facility] Magnesium No Notes: [facility] Sulfate 6-13 WASTE: F/P l 13:47: - Sink; E Vinnie - [facility] Magnesium No Notes: [facility] Sulfate 6-13 WASTE: F/P l 13:47: - Sink; E Lead - [facility] Magnesium No Notes: [facility] Sulfate 6-13 WASTE: F/P l 13:47: - Sink; E Vinnie - [facility] Magnesium No Notes: [facility] Sulfate 6-13 WASTE: F/P l 13:47: - Sink; E Vinnie - [facility] Magnesium No Notes: [facility] Sulfate 6-13 WASTE: F/P l 13:47: - Sink; E Lead - [facility] Magnesium No Notes: [facility] Sulfate 6-13 WASTE: F/P l 13:47: - Sink; E Vinnie - [facility] Magnesium No Notes: [facility] Sulfate 6-13 WASTE: F/P l 13:47: - Sink; E Lead - [facility] Magnesium No Notes: [facility] Sulfate 6-13 WASTE: F/P l 13:47: - Sink; E Lead - [facility] Magnesium No Notes: [facility] Sulfate 6-13 WASTE: F/P l 13:47: - Sink; E Lead - [facility] Magnesium No Notes: [facility] Sulfate 6-13 WASTE: F/P l 13:47: - Sink; E Lead - [facility] Magnesium No Notes: [facility] Sulfate 6-13 WASTE: F/P l 13:47: - Sink; E Lead - [facility] Magnesium No Notes: [facility] Sulfate 6-13 WASTE: F/P l 13:47: - Sink; E Lead - [facility] Magnesium No Notes: [facility] Sulfate 6-13 WASTE: F/P l 13:47: - Sink; E Lead - [facility] Magnesium No Notes: [facility] Sulfate 6-13 WASTE: F/P l 13:47: - Sink; E Lead - [facility] Magnesium No Notes: [facility] Sulfate 6-13 WASTE: F/P l 13:47: - Sink; E Vinnie - [facility] Magnesium No Notes: [facility] Sulfate 6-13 WASTE: F/P l 13:47: - Sink; E Vinnie - [facility] Magnesium No Notes: [facility] Sulfate 6-13 WASTE: F/P l 13:47: - Sink; E Lead - [facility] Magnesium 0 No Notes: [facility] Sulfate 6-13 WASTE: F/P l 13:47: - Sink; E Vinnie - [facility] Magnesium 0 No Notes: [facility] Sulfate 6-13 WASTE: F/P l 13:47: - Sink; E Lead - [facility] Magnesium No Notes: [facility] Sulfate 6-13 WASTE: F/P l 13:47: - Sink; E Vinnie - [facility] Magnesium 0 No Notes: [facility] Sulfate 6-13 WASTE: F/P l 13:47: - Sink; E Vinnie 00 - [facility] Dilaudid 2019 No Notes: [facility] 6-12 Same as: l 15:07: Dilaudid Lead Dilaudid 2019- No Notes: [facility] 6-12 Same as: l 15:07: Dilaudid Lead Dilaudid 2019- No Notes: [facility] 6-12 Same as: l 15:07: Dilaudid Lead Dilaudid 2019- No Notes: [facility] 6-12 Same as: l 15:07: Dilaudid Lead Dilaudid 2019- No Notes: [facility] 6-12 Same as: l 15:07: Dilaudid Vinnie Dilaudid 2019- No Notes: [facility] 6-12 Same as: l 15:07: Dilaudid Lead Dilaudid 2019- No Notes: [facility] 6-12 Same as: l 15:07: Dilaudid Vinnie Dilaudid 2019 No Notes: [facility] 6-12 Same as: l 15:07: Dilaudid Vinnie Dilaudid 2019- No Notes: [facility] 6-12 Same as: l 15:07: Dilaudid Vinnie Dilaudid 2019- No Notes: [facility] 6-12 Same as: l 15:07: Dilaudid Lead Dilaudid 2019- No Notes: [facility] 6-12 Same as: l 15:07: Dilaudid Lead Dilaudid 2019- No Notes: [facility] 6-12 Same as: l 15:07: Dilaudid Lead Dilaudid 2019- No Notes: [facility] 6-12 Same as: l 15:07: Dilaudid Vinnie Dilaudid 2019-0 No Notes: [facility] 6-12 Same as: l 15:07: Dilaudid Lead Dilaudid 2019- No Notes: [facility] 6-12 Same as: l 15:07: Dilaudid Vinnie Dilaudid 2019-0 No Notes: [facility] 6-12 Same as: l 15:07: Dilaudid Vinnie Dilaudid 2019- No Notes: [facility] 6-12 Same as: l 15:07: Dilaudid Vinnie Dilaudid 2019-0 No Notes: [facility] 6-12 Same as: l 15:07: Dilaudid Vinnie 00 Dilaudid 2019- No Notes: [facility] 6-12 Same as: l 15:07: Dilaudid Lead 00 Dilaudid 2019- No Notes: [facility] 6-12 Same as: l 15:07: Dilaudid Lead 00 Dilaudid No Notes: [facility] 6-12 Same as: l 15:07: Dilaudid Vinnie 00 Dilaudid No Notes: [facility] 6-12 Same as: l 15:07: Dilaudid Vinnie 00 Dilaudid 2019- No Notes: [facility] 6-12 Same as: l 15:07: Dilaudid Lead Dilaudid 2018- No Notes: [facility] 6-12 Same as: l 15:07: Dilaudid Lead Dilaudid No Notes: [facility] 6-12 Same as: l 15:07: Dilaudid Vinnie 00 Dilaudid No Notes: [facility] 6-12 Same as: l 15:07: Dilaudid Vinnie 00 Dilaudid No Notes: [facility] 6-12 Same as: l 15:07: Dilaudid Vinnie 00 Vancomycin No Notes: [facility] TIME l Dosing + 06:00: CRITICAL Salma nn Sodium 00 MEDICATION Chloride (Same As: 0.9% IV 100 Vancocin) mL For adult patients only: Round to nearest 250 mg per Medical Staff approval Vancomycin No Notes: [facility] TIME l Dosing + 06:00: CRITICAL Salma nn Sodium 00 MEDICATION Chloride (Same As: 0.9% IV 100 Vancocin) mL For adult patients only: Round to nearest 250 mg per Medical Staff approval Vancomycin No Notes: [facility] TIME l Dosing + 06:00: CRITICAL Salma nn Sodium 00 MEDICATION Chloride (Same As: 0.9% IV 100 Vancocin) mL For adult patients only: Round to nearest 250 mg per Medical Staff approval Vancomycin No Notes: [facility] TIME l Dosing + 06:00: CRITICAL Salma nn Sodium 00 MEDICATION Chloride (Same As: 0.9% IV 100 Vancocin) mL For adult patients only: Round to nearest 250 mg per Medical Staff approval Vancomycin No Notes: [facility] TIME l Dosing + 06:00: CRITICAL Salma nn Sodium 00 MEDICATION Chloride (Same As: 0.9% IV 100 Vancocin) mL For adult patients only: Round to nearest 250 mg per Medical Staff approval Vancomycin No Notes: [facility] TIME l Dosing + 06:00: CRITICAL Salma nn Sodium 00 MEDICATION Chloride (Same As: 0.9% IV 100 Vancocin) mL For adult patients only: Round to nearest 250 mg per Medical Staff approval Vancomycin No Notes: [facility] TIME l Dosing + 06:00: CRITICAL Salma nn Sodium 00 MEDICATION Chloride (Same As: 0.9% IV 100 Vancocin) mL For adult patients only: Round to nearest 250 mg per Medical Staff approval Vancomycin No Notes: [facility] TIME l Dosing + 06:00: CRITICAL Salma nn Sodium 00 MEDICATION Chloride (Same As: 0.9% IV 100 Vancocin) mL For adult patients only: Round to nearest 250 mg per Medical Staff approval Vancomycin No Notes: [facility] TIME l Dosing + 06:00: CRITICAL Salma nn Sodium 00 MEDICATION Chloride (Same As: 0.9% IV 100 Vancocin) mL For adult patients only: Round to nearest 250 mg per Medical Staff approval Vancomycin No Notes: [facility] TIME l Dosing + 06:00: CRITICAL Salma nn Sodium 00 MEDICATION Chloride (Same As: 0.9% IV 100 Vancocin) mL For adult patients only: Round to nearest 250 mg per Medical Staff approval Vancomycin No Notes: [facility] TIME l Dosing + 06:00: CRITICAL Salma nn Sodium 00 MEDICATION Chloride (Same As: 0.9% IV 100 Vancocin) mL For adult patients only: Round to nearest 250 mg per Medical Staff approval Vancomycin No Notes: [facility] TIME l Dosing + 06:00: CRITICAL Salma nn Sodium 00 MEDICATION Chloride (Same As: 0.9% IV 100 Vancocin) mL For adult patients only: Round to nearest 250 mg per Medical Staff approval Vancomycin No Notes: [facility] TIME l Dosing + 06:00: CRITICAL Salma nn Sodium 00 MEDICATION Chloride (Same As: 0.9% IV 100 Vancocin) mL For adult patients only: Round to nearest 250 mg per Medical Staff approval Vancomycin No Notes: [facility] TIME l Dosing + 06:00: CRITICAL Salma nn Sodium 00 MEDICATION Chloride (Same As: 0.9% IV 100 Vancocin) mL For adult patients only: Round to nearest 250 mg per Medical Staff approval Vancomycin No Notes: [facility] TIME l Dosing + 06:00: CRITICAL Salma nn Sodium 00 MEDICATION Chloride (Same As: 0.9% IV 100 Vancocin) mL For adult patients only: Round to nearest 250 mg per Medical Staff approval Vancomycin No Notes: [facility] TIME l Dosing + 06:00: CRITICAL Salma nn Sodium 00 MEDICATION Chloride (Same As: 0.9% IV 100 Vancocin) mL For adult patients only: Round to nearest 250 mg per Medical Staff approval Vancomycin No Notes: [facility] TIME l Dosing + 06:00: CRITICAL Salma nn Sodium 00 MEDICATION Chloride (Same As: 0.9% IV 100 Vancocin) mL For adult patients only: Round to nearest 250 mg per Medical Staff approval Vancomycin No Notes: [facility] TIME l Dosing + 06:00: CRITICAL Salma nn Sodium 00 MEDICATION Chloride (Same As: 0.9% IV 100 Vancocin) mL For adult patients only: Round to nearest 250 mg per Medical Staff approval Vancomycin No Notes: [facility] TIME l Dosing + 06:00: CRITICAL Salma nn Sodium 00 MEDICATION Chloride (Same As: 0.9% IV 100 Vancocin) mL For adult patients only: Round to nearest 250 mg per Medical Staff approval Vancomycin No Notes: [facility] TIME l Dosing + 06:00: CRITICAL Salma nn Sodium 00 MEDICATION Chloride (Same As: 0.9% IV 100 Vancocin) mL For adult patients only: Round to nearest 250 mg per Medical Staff approval Vancomycin No Notes: [facility] TIME l Dosing + 06:00: CRITICAL Salma nn Sodium 00 MEDICATION Chloride (Same As: 0.9% IV 100 Vancocin) mL For adult patients only: Round to nearest 250 mg per Medical Staff approval Vancomycin No Notes: [facility] TIME l Dosing + 06:00: CRITICAL Salma nn Sodium 00 MEDICATION Chloride (Same As: 0.9% IV 100 Vancocin) mL For adult patients only: Round to nearest 250 mg per Medical Staff approval Vancomycin No Notes: [facility] TIME l Dosing + 06:00: CRITICAL Salma nn Sodium 00 MEDICATION Chloride (Same As: 0.9% IV 100 Vancocin) mL For adult patients only: Round to nearest 250 mg per Medical Staff approval Vancomycin No Notes: [facility] 6[facility] TIME l Dosing + 06:00: CRITICAL Salma nn Sodium 00 MEDICATION Chloride (Same As: 0.9% IV 100 Vancocin) mL For adult patients only: Round to nearest 250 mg per Medical Staff approval Vancomycin No Notes: [facility] TIME l Dosing + 06:00: CRITICAL Salma nn Sodium 00 MEDICATION Chloride (Same As: 0.9% IV 100 Vancocin) mL For adult patients only: Round to nearest 250 mg per Medical Staff approval Vancomycin No Notes: [facility] 6[facility] TIME l Dosing + 06:00: CRITICAL Salma nn Sodium 00 MEDICATION Chloride (Same As: 0.9% IV 100 Vancocin) mL For adult patients only: Round to nearest 250 mg per Medical Staff approval Vancomycin No Notes: [facility] 6[facility] TIME l Dosing + 06:00: CRITICAL Salma nn Sodium 00 MEDICATION Chloride (Same As: 0.9% IV 100 Vancocin) mL For adult patients only: Round to nearest 250 mg per Medical Staff approval chlorhexidi No Notes: Semaj shashi ne 02-24 (Same As: l gluconate 02:00: Peridex) Herm avis 1.2 MG/ML 00 Mouthwash Lasix No Notes: Mem[facility] 02-24 (Same as: l 02:00: Lasix) Vinnie 00 MEDICATION WASTE Product Size: 40 mg Product Wasted: ___ mg Lipitor No Notes: [facility] 02-24 (Same as: l 02:00: Lipitor) Lead 00 chlorhexidi No Notes: Semaj shashi ne 02-24 (Same As: l gluconate 02:00: Peridex) Herm avis 1.2 MG/ML 00 Mouthwash Lasix No Notes: [facility] 6-12 (Same as: l 02:00: Lasix) Vinnie MEDICATION WASTE Product Size: 40 mg Product Wasted: ___ mg Lipitor No Notes: [facility] 6-12 (Same as: l 02:00: Lipitor) Lead chlorhexidi No Notes: Semaj shashi ne 6-12 (Same As: l gluconate 02:00: Peridex) Herm avis 1.2 MG/ML 00 Mouthwash Lasix No Notes: [facility] 6-12 (Same as: l 02:00: Lasix) Lead MEDICATION WASTE Product Size: 40 mg Product Wasted: ___ mg Lipitor No Notes: [facility] 6-12 (Same as: l 02:00: Lipitor) Vinnie chlorhexidi No Notes: Semaj shashi ne 6-12 (Same As: l gluconate 02:00: Peridex) Herm avis 1.2 MG/ML Mouthwash Lasix No Notes: [facility] 6-12 (Same as: l 02:00: Lasix) Lead 00 MEDICATION WASTE Product Size: 40 mg Product Wasted: ___ mg Lipitor No Notes: [facility] 6-12 (Same as: l 02:00: Lipitor) Vinnie chlorhexidi No Notes: Semaj shashi ne 6-12 (Same As: l gluconate 02:00: Peridex) Herm avis 1.2 MG/ML Mouthwash Lasix No Notes: [facility] 6-12 (Same as: l 02:00: Lasix) Lead MEDICATION WASTE Product Size: 40 mg Product Wasted: ___ mg Lipitor No Notes: [facility] 6-12 (Same as: l 02:00: Lipitor) Lead chlorhexidi No Notes: Semaj shashi ne 6-12 (Same As: l gluconate 02:00: Peridex) Herm avis 1.2 MG/ML 00 Mouthwash Lasix No Notes: [facility] 6-12 (Same as: l 02:00: Lasix) Lead MEDICATION WASTE Product Size: 40 mg Product Wasted: ___ mg Lipitor No Notes: [facility] 6-12 (Same as: l 02:00: Lipitor) Vinnie 00 chlorhexidi No Notes: Semaj shashi ne 6-12 (Same As: l gluconate 02:00: Peridex) Herm avis 1.2 MG/ML 00 Mouthwash Lasix No Notes: [facility] 6-12 (Same as: l 02:00: Lasix) Lead 00 MEDICATION WASTE Product Size: 40 mg Product Wasted: ___ mg Lipitor No Notes: [facility] 6-12 (Same as: l 02:00: Lipitor) Lead 00 chlorhexidi No Notes: Semaj shashi ne 6-12 (Same As: l gluconate 02:00: Peridex) Herm avis 1.2 MG/ML Mouthwash Lasix No Notes: [facility] 6-12 (Same as: l 02:00: Lasix) Vinnie 00 MEDICATION WASTE Product Size: 40 mg Product Wasted: ___ mg Lipitor No Notes: [facility] 6-12 (Same as: l 02:00: Lipitor) Vinnie 00 chlorhexidi No Notes: Semaj shashi ne 6-12 (Same As: l gluconate 02:00: Peridex) Herm avis 1.2 MG/ML Mouthwash Lasix No Notes: [facility] 6-12 (Same as: l 02:00: Lasix) Vinnie 00 MEDICATION WASTE Product Size: 40 mg Product Wasted: ___ mg Lipitor No Notes: [facility] 6-12 (Same as: l 02:00: Lipitor) Vinnie chlorhexidi No Notes: Semaj shashi ne 6-12 (Same As: l gluconate 02:00: Peridex) Herm avis 1.2 MG/ML 00 Mouthwash Lasix No Notes: [facility] 6-12 (Same as: l 02:00: Lasix) Lead 00 MEDICATION WASTE Product Size: 40 mg Product Wasted: ___ mg Lipitor No Notes: [facility] 6-12 (Same as: l 02:00: Lipitor) Lead chlorhexidi No Notes: Semaj shashi ne 6-12 (Same As: l gluconate 02:00: Peridex) Herm avis 1.2 MG/ML Mouthwash Lasix No Notes: [facility] 6-12 (Same as: l 02:00: Lasix) Vinnie MEDICATION WASTE Product Size: 40 mg Product Wasted: ___ mg Lipitor No Notes: [facility] 6-12 (Same as: l 02:00: Lipitor) Lead chlorhexidi No Notes: Semaj shashi ne 6-12 (Same As: l gluconate 02:00: Peridex) Herm avis 1.2 MG/ML Mouthwash Lasix No Notes: [facility] 6-12 (Same as: l 02:00: Lasix) Lead MEDICATION WASTE Product Size: 40 mg Product Wasted: ___ mg Lipitor No Notes: [facility] 6-12 (Same as: l 02:00: Lipitor) Lead chlorhexidi No Notes: Semaj shashi ne 6-12 (Same As: l gluconate 02:00: Peridex) Herm avis 1.2 MG/ML Mouthwash Lasix No Notes: [facility] 6-12 (Same as: l 02:00: Lasix) Lead MEDICATION WASTE Product Size: 40 mg Product Wasted: ___ mg Lipitor No Notes: [facility] 6-12 (Same as: l 02:00: Lipitor) Vinnie chlorhexidi No Notes: Semaj shashi ne 6-12 (Same As: l gluconate 02:00: Peridex) Herm avis 1.2 MG/ML Mouthwash Lasix No Notes: [facility] 6-12 (Same as: l 02:00: Lasix) Vinnie MEDICATION WASTE Product Size: 40 mg Product Wasted: ___ mg Lipitor No Notes: [facility] 6-12 (Same as: l 02:00: Lipitor) Vinnie chlorhexidi No Notes: Semaj shashi ne 6-12 (Same As: l gluconate 02:00: Peridex) Herm avis 1.2 MG/ML 00 Mouthwash Lasix No Notes: [facility] 6-12 (Same as: l 02:00: Lasix) Lead MEDICATION WASTE Product Size: 40 mg Product Wasted: ___ mg Lipitor No Notes: [facility] 6-12 (Same as: l 02:00: Lipitor) Vinnie chlorhexidi No Notes: Semaj shashi ne 6-12 (Same As: l gluconate 02:00: Peridex) Herm avis 1.2 MG/ML Mouthwash Lasix No Notes: [facility] 6-12 (Same as: l 02:00: Lasix) Vinnie MEDICATION WASTE Product Size: 40 mg Product Wasted: ___ mg Lipitor No Notes: [facility] 6-12 (Same as: l 02:00: Lipitor) Lead chlorhexidi No Notes: Semaj shashi ne 6-12 (Same As: l gluconate 02:00: Peridex) Herm avis 1.2 MG/ML Mouthwash Lasix No Notes: [facility] 6-12 (Same as: l 02:00: Lasix) Vinnie 00 MEDICATION WASTE Product Size: 40 mg Product Wasted: ___ mg Lipitor No Notes: [facility] 6-12 (Same as: l 02:00: Lipitor) Vinnie chlorhexidi No Notes: Semaj shashi ne 6-12 (Same As: l gluconate 02:00: Peridex) Herm avis 1.2 MG/ML 00 Mouthwash Lasix No Notes: [facility] 6-12 (Same as: l 02:00: Lasix) Lead MEDICATION WASTE Product Size: 40 mg Product Wasted: ___ mg Lipitor No Notes: [facility] 6-12 (Same as: l 02:00: Lipitor) Lead chlorhexidi No Notes: Semaj shashi ne 6-12 (Same As: l gluconate 02:00: Peridex) Herm avis 1.2 MG/ML 00 Mouthwash Lasix No Notes: [facility] 6-12 (Same as: l 02:00: Lasix) Lead 00 MEDICATION WASTE Product Size: 40 mg Product Wasted: ___ mg Lipitor No Notes: [facility] 6-12 (Same as: l 02:00: Lipitor) Lead 00 chlorhexidi No Notes: Semaj shashi ne 6-12 (Same As: l gluconate 02:00: Peridex) Herm avis 1.2 MG/ML 00 Mouthwash Lasix No Notes: [facility] 6-12 (Same as: l 02:00: Lasix) Vinnie 00 MEDICATION WASTE Product Size: 40 mg Product Wasted: ___ mg Lipitor No Notes: [facility] 6-12 (Same as: l 02:00: Lipitor) chlorhexidi No Notes: Semaj shashi ne 6-12 (Same As: l gluconate 02:00: Peridex) Herm avis 1.2 MG/ML 00 Mouthwash Lasix No Notes: [facility] 6-12 (Same as: l 02:00: Lasix) Vinnie 00 MEDICATION WASTE Product Size: 40 mg Product Wasted: ___ mg Lipitor No Notes: [facility] 6-12 (Same as: l 02:00: Lipitor) chlorhexidi No Notes: Semaj shashi ne 6-12 (Same As: l gluconate 02:00: Peridex) Herm avis 1.2 MG/ML 00 Mouthwash Lasix No Notes: [facility] 6-12 (Same as: l 02:00: Lasix) Vinnie 00 MEDICATION WASTE Product Size: 40 mg Product Wasted: ___ mg Lipitor No Notes: [facility] 6-12 (Same as: l 02:00: Lipitor) Lead 00 chlorhexidi No Notes: Semaj shashi ne 6-12 (Same As: l gluconate 02:00: Peridex) Herm avis 1.2 MG/ML 00 Mouthwash Lasix No Notes: [facility] 6-12 (Same as: l 02:00: Lasix) Lead MEDICATION WASTE Product Size: 40 mg Product Wasted: ___ mg Lipitor No Notes: [facility] 6-12 (Same as: l 02:00: Lipitor) Lead chlorhexidi No Notes: Semaj shashi ne 6-12 (Same As: l gluconate 02:00: Peridex) Herm avis 1.2 MG/ML 00 Mouthwash Lasix No Notes: [facility] 6-12 (Same as: l 02:00: Lasix) Vinnie MEDICATION WASTE Product Size: 40 mg Product Wasted: ___ mg Lipitor No Notes: [facility] 6-12 (Same as: l 02:00: Lipitor) Vinnie chlorhexidi No Notes: Semaj shashi ne 6-12 (Same As: l gluconate 02:00: Peridex) Herm avis 1.2 MG/ML Mouthwash Lasix No Notes: Memoria 6-12 (Same as: l 02:00: Lasix) Lead 00 MEDICATION WASTE Product Size: 40 mg Product Wasted: ___ mg Lipitor No Notes: Memoria 6-12 (Same as: l 02:00: Lipitor) Lead chlorhexidi No Notes: Semaj shashi ne 6-12 (Same As: l gluconate 02:00: Peridex) Herm avis 1.2 MG/ML Mouthwash Lasix No Notes: Memoria 6-12 (Same as: l 02:00: Lasix) Vinnie MEDICATION WASTE Product Size: 40 mg Product Wasted: ___ mg Lipitor No Notes: Memoria 6-12 (Same as: l 02:00: Lipitor) Lead chlorhexidi No Notes: Semaj shashi ne 6-12 (Same As: l gluconate 02:00: Peridex) Herm avis 1.2 MG/ML 00 Mouthwash Lasix No Notes: Memoria 6-12 (Same as: l 02:00: Lasix) Lead MEDICATION WASTE Product Size: 40 mg Product Wasted: ___ mg Lipitor No Notes: Memoria 6-12 (Same as: l 02:00: Lipitor) Vinnie 00 Norepinephr No Notes: Not Memoria ine 6-12 for direct l 01:19: administra Lead 00 tion - DILUTE. Protect from light. (Same as:Levophe d). Administer by either central venous catheter or peripheral ly-inserte d central catheter (PICC) line. Norepinephr No Notes: Not Memoria ine 6-12 for direct l 01:19: administra Vinnie 00 tion - DILUTE. Protect from light. (Same as:Levophe d). Administer by either central venous catheter or peripheral ly-inserte d central catheter (PICC) line. Norepinephr No Notes: Not Memoria ine 6-12 for direct l 01:19: administra Lead 00 tion - DILUTE. Protect from light. (Same as:Levophe d). Administer by either central venous catheter or peripheral ly-inserte d central catheter (PICC) line. Norepinephr No Notes: Not Memoria ine 6-12 for direct l 01:19: administra Vinnie 00 tion - DILUTE. Protect from light. (Same as:Levophe d). Administer by either central venous catheter or peripheral ly-inserte d central catheter (PICC) line. Norepinephr No Notes: Not Memoria ine 6-12 for direct l 01:19: administra Lead 00 tion - DILUTE. Protect from light. (Same as:Levophe d). Administer by either central venous catheter or peripheral ly-inserte d central catheter (PICC) line. Norepinephr No Notes: Not Memoria ine 6-12 for direct l 01:19: administra Lead 00 tion - DILUTE. Protect from light. (Same as:Levophe d). Administer by either central venous catheter or peripheral ly-inserte d central catheter (PICC) line. Norepinephr No Notes: Not Memoria ine 6-12 for direct l 01:19: administra Vinnie 00 tion - DILUTE. Protect from light. (Same as:Levophe d). Administer by either central venous catheter or peripheral ly-inserte d central catheter (PICC) line. Norepinephr No Notes: Not Memoria ine 6-12 for direct l 01:19: administra Lead 00 tion - DILUTE. Protect from light. (Same as:Levophe d). Administer by either central venous catheter or peripheral ly-inserte d central catheter (PICC) line. Norepinephr No Notes: Not Memoria ine 6-12 for direct l 01:19: administra Vinnie 00 tion - DILUTE. Protect from light. (Same as:Levophe d). Administer by either central venous catheter or peripheral ly-inserte d central catheter (PICC) line. Norepinephr No Notes: Not Memoria ine 6-12 for direct l 01:19: administra Vinnie 00 tion - DILUTE. Protect from light. (Same as:Levophe d). Administer by either central venous catheter or peripheral ly-inserte d central catheter (PICC) line. Norepinephr No Notes: Not Memoria ine 6-12 for direct l 01:19: administra Lead 00 tion - DILUTE. Protect from light. (Same as:Levophe d). Administer by either central venous catheter or peripheral ly-inserte d central catheter (PICC) line. Norepinephr No Notes: Not Memoria ine 6-12 for direct l 01:19: administra Lead 00 tion - DILUTE. Protect from light. (Same as:Levophe d). Administer by either central venous catheter or peripheral ly-inserte d central catheter (PICC) line. Norepinephr No Notes: Not Memoria ine 6-12 for direct l 01:19: administra Lead 00 tion - DILUTE. Protect from light. (Same as:Levophe d). Administer by either central venous catheter or peripheral ly-inserte d central catheter (PICC) line. Norepinephr 0 No Notes: Not Memoria ine 6-12 for direct l 01:19: administra Vinnie 00 tion - DILUTE. Protect from light. (Same as:Levophe d). Administer by either central venous catheter or peripheral ly-inserte d central catheter (PICC) line. Norepinephr No Notes: Not Memoria ine 6-12 for direct l 01:19: administra Vinnie 00 tion - DILUTE. Protect from light. (Same as:Levophe d). Administer by either central venous catheter or peripheral ly-inserte d central catheter (PICC) line. Norepinephr No Notes: Not Memoria ine 6-12 for direct l 01:19: administra Lead 00 tion - DILUTE. Protect from light. (Same as:Levophe d). Administer by either central venous catheter or peripheral ly-inserte d central catheter (PICC) line. Norepinephr No Notes: Not Memoria ine 6-12 for direct l 01:19: administra Lead 00 tion - DILUTE. Protect from light. (Same as:Levophe d). Administer by either central venous catheter or peripheral ly-inserte d central catheter (PICC) line. Norepinephr No Notes: Not Memoria ine 6-12 for direct l 01:19: administra Lead 00 tion - DILUTE. Protect from light. (Same as:Levophe d). Administer by either central venous catheter or peripheral ly-inserte d central catheter (PICC) line. Norepinephr No Notes: Not Memoria ine 6-12 for direct l 01:19: administra Vinnie 00 tion - DILUTE. Protect from light. (Same as:Levophe d). Administer by either central venous catheter or peripheral ly-inserte d central catheter (PICC) line. Norepinephr No Notes: Not Memoria ine 6-12 for direct l 01:19: administra Lead 00 tion - DILUTE. Protect from light. (Same as:Levophe d). Administer by either central venous catheter or peripheral ly-inserte d central catheter (PICC) line. Norepinephr No Notes: Not Memoria ine 6-12 for direct l 01:19: administra Lead 00 tion - DILUTE. Protect from light. (Same as:Levophe d). Administer by either central venous catheter or peripheral ly-inserte d central catheter (PICC) line. Norepinephr 0 No Notes: Not Memoria ine 6-12 for direct l 01:19: administra Lead 00 tion - DILUTE. Protect from light. (Same as:Levophe d). Administer by either central venous catheter or peripheral ly-inserte d central catheter (PICC) line. Norepinephr No Notes: Not Memoria ine 6-12 for direct l 01:19: administra Vinnie 00 tion - DILUTE. Protect from light. (Same as:Levophe d). Administer by either central venous catheter or peripheral ly-inserte d central catheter (PICC) line. Norepinephr No Notes: Not Memoria ine 6-12 for direct l 01:19: administra Lead 00 tion - DILUTE. Protect from light. (Same as:Levophe d). Administer by either central venous catheter or peripheral ly-inserte d central catheter (PICC) line. Norepinephr No Notes: Not Memoria ine 6-12 for direct l 01:19: administra Vinnie 00 tion - DILUTE. Protect from light. (Same as:Levophe d). Administer by either central venous catheter or peripheral ly-inserte d central catheter (PICC) line. Norepinephr No Notes: Not Memoria ine 6-12 for direct l 01:19: administra Lead 00 tion - DILUTE. Protect from light. (Same as:Levophe d). Administer by either central venous catheter or peripheral ly-inserte d central catheter (PICC) line. Norepinephr No Notes: Not Memoria ine 6-12 for direct l 01:19: administra Vinnie 00 tion - DILUTE. Protect from light. (Same as:Levophe d). Administer by either central venous catheter or peripheral ly-inserte d central catheter (PICC) line. ocular No Notes: Memoria lubricant 6-11 (Same as: l 23:00: Lacri-Lube Vinnie 00 , Puralube, Duratears Naturale, Artificial Tears, and Tears Again ) ocular No Notes: Memoria lubricant 6-11 (Same as: l 23:00: Lacri-Lube Lead 00 , Puralube, Duratears Naturale, Artificial Tears, and Tears Again ) ocular No Notes: Memoria lubricant 6-11 (Same as: l 23:00: Lacri-Lube Vinnie 00 , Puralube, Duratears Naturale, Artificial Tears, and Tears Again ) ocular 2019-0 No Notes: Memoria lubricant 6-11 (Same as: l 23:00: Lacri-Lube Lead 00 , Puralube, Duratears Naturale, Artificial Tears, and Tears Again ) ocular 2019-0 No Notes: Memoria lubricant 6-11 (Same as: l 23:00: Lacri-Lube Vinnie 00 , Puralube, Duratears Naturale, Artificial Tears, and Tears Again ) ocular 2019-0 No Notes: Memoria lubricant 6-11 (Same as: l 23:00: Lacri-Lube Lead 00 , Puralube, Duratears Naturale, Artificial Tears, and Tears Again ) ocular 2019-0 No Notes: Memoria lubricant 6-11 (Same as: l 23:00: Lacri-Lube Lead 00 , Puralube, Duratears Naturale, Artificial Tears, and Tears Again ) ocular 2019-0 No Notes: Memoria lubricant 6-11 (Same as: l 23:00: Lacri-Lube Vinnie 00 , Puralube, Duratears Naturale, Artificial Tears, and Tears Again ) ocular 2019-0 No Notes: Memoria lubricant 6-11 (Same as: l 23:00: Lacri-Lube Vinnie 00 , Puralube, Duratears Naturale, Artificial Tears, and Tears Again ) ocular 2019-0 No Notes: Memoria lubricant 6-11 (Same as: l 23:00: Lacri-Lube Lead 00 , Puralube, Duratears Naturale, Artificial Tears, and Tears Again ) ocular 2019-0 No Notes: Memoria lubricant 6-11 (Same as: l 23:00: Lacri-Lube Lead 00 , Puralube, Duratears Naturale, Artificial Tears, and Tears Again ) ocular 2019-0 No Notes: Memoria lubricant 6-11 (Same as: l 23:00: Lacri-Lube Vinnie 00 , Puralube, Duratears Naturale, Artificial Tears, and Tears Again ) ocular 2019-0 No Notes: Memoria lubricant 6-11 (Same as: l 23:00: Lacri-Lube Lead 00 , Puralube, Duratears Naturale, Artificial Tears, and Tears Again ) ocular 2019-0 No Notes: Memoria lubricant 6-11 (Same as: l 23:00: Lacri-Lube Vinnie 00 , Puralube, Duratears Naturale, Artificial Tears, and Tears Again ) ocular 2019-0 No Notes: Memoria lubricant 6-11 (Same as: l 23:00: Lacri-Lube Lead 00 , Puralube, Duratears Naturale, Artificial Tears, and Tears Again ) ocular 2019-0 No Notes: Memoria lubricant 6-11 (Same as: l 23:00: Lacri-Lube Vinnie 00 , Puralube, Duratears Naturale, Artificial Tears, and Tears Again ) ocular [id number] No Notes: Memoria lubricant 6-11 (Same as: l 23:00: Lacri-Lube Vinnie 00 , Puralube, Duratears Naturale, Artificial Tears, and Tears Again ) ocular 2019-0 No Notes: Memoria lubricant 6-11 (Same as: l 23:00: Lacri-Lube Lead 00 , Puralube, Duratears Naturale, Artificial Tears, and Tears Again ) ocular [id number] No Notes: Memoria lubricant 6-11 (Same as: l 23:00: Lacri-Lube Lead 00 , Puralube, Duratears Naturale, Artificial Tears, and Tears Again ) ocular 2019-0 No Notes: Memoria lubricant 6-11 (Same as: l 23:00: Lacri-Lube Lead 00 , Puralube, Duratears Naturale, Artificial Tears, and Tears Again ) ocular 2019-0 No Notes: Memoria lubricant 6-11 (Same as: l 23:00: Lacri-Lube Lead 00 , Puralube, Duratears Naturale, Artificial Tears, and Tears Again ) ocular 2019-0 No Notes: Memoria lubricant 6-11 (Same as: l 23:00: Lacri-Lube Vinnie 00 , Puralube, Duratears Naturale, Artificial Tears, and Tears Again ) ocular 2019-0 No Notes: Memoria lubricant 6-11 (Same as: l 23:00: Lacri-Lube Lead 00 , Puralube, Duratears Naturale, Artificial Tears, and Tears Again ) ocular No Notes: Memoria lubricant 6-11 (Same as: l 23:00: Lacri-Lube Vinnie 00 , Puralube, Duratears Naturale, Artificial Tears, and Tears Again ) ocular No Notes: Memoria lubricant 6-11 (Same as: l 23:00: Lacri-Lube Lead 00 , Puralube, Duratears Naturale, Artificial Tears, and Tears Again ) ocular No Notes: Memoria lubricant 6-11 (Same as: l 23:00: Lacri-Lube Vinnie 00 , Puralube, Duratears Naturale, Artificial Tears, and Tears Again ) ocular No Notes: Memoria lubricant 6-11 (Same as: l 23:00: Lacri-Lube Vinnie 00 , Puralube, Duratears Naturale, Artificial Tears, and Tears Again ) propofol No Notes: If M emoria mg/mL 6-11 Diprivan - l (Titrate.) 18:44: change Salma nn IV 1,000 mg 00 bottle & tubing every 12 hr Per state nursing law propofol can only be given by a nurse if patient is intubated or being intubated (unless the nurse is a UTILITY AGENT). Same as: Diprivan propofol No Notes: If M emoria mg/mL 6-11 Diprivan - l (Titrate.) 18:44: change Salma nn IV 1,000 mg 00 bottle & tubing every 12 hr Per state nursing law propofol can only be given by a nurse if patient is intubated or being intubated (unless the nurse is a UTILITY AGENT). Same as: Diprivan propofol No Notes: If M emoria mg/mL 6-11 Diprivan - l (Titrate.) 18:44: change Salma nn IV 1,000 mg 00 bottle & tubing every 12 hr Per state nursing law propofol can only be given by a nurse if patient is intubated or being intubated (unless the nurse is a UTILITY AGENT). Same as: Diprivan propofol No Notes: If M emoria mg/mL 6-11 Diprivan - l (Titrate.) 18:44: change Salma nn IV 1,000 mg 00 bottle & tubing every 12 hr Per state nursing law propofol can only be given by a nurse if patient is intubated or being intubated (unless the nurse is a UTILITY AGENT). Same as: Diprivan propofol No Notes: If M emoria mg/mL 6-11 Diprivan - l (Titrate.) 18:44: change Salma nn IV 1,000 mg 00 bottle & tubing every 12 hr Per state nursing law propofol can only be given by a nurse if patient is intubated or being intubated (unless the nurse is a UTILITY AGENT). Same as: Diprivan propofol No Notes: If M emoria mg/mL 6-11 Diprivan - l (Titrate.) 18:44: change Salma nn IV 1,000 mg 00 bottle & tubing every 12 hr Per state nursing law propofol can only be given by a nurse if patient is intubated or being intubated (unless the nurse is a UTILITY AGENT). Same as: Diprivan propofol No Notes: If M emoria mg/mL 6-11 Diprivan - l (Titrate.) 18:44: change Salma nn IV 1,000 mg 00 bottle & tubing every 12 hr Per state nursing law propofol can only be given by a nurse if patient is intubated or being intubated (unless the nurse is a UTILITY AGENT). Same as: Diprivan propofol No Notes: If M emoria mg/mL 6-11 Diprivan - l (Titrate.) 18:44: change Salma nn IV 1,000 mg 00 bottle & tubing every 12 hr Per state nursing law propofol can only be given by a nurse if patient is intubated or being intubated (unless the nurse is a UTILITY AGENT). Same as: Diprivan propofol No Notes: If M emoria mg/mL 6-11 Diprivan - l (Titrate.) 18:44: change Salma nn IV 1,000 mg 00 bottle & tubing every 12 hr Per state nursing law propofol can only be given by a nurse if patient is intubated or being intubated (unless the nurse is a UTILITY AGENT). Same as: Diprivan propofol No Notes: If M emoria mg/mL 6-11 Diprivan - l (Titrate.) 18:44: change Salma nn IV 1,000 mg 00 bottle & tubing every 12 hr Per state nursing law propofol can only be given by a nurse if patient is intubated or being intubated (unless the nurse is a UTILITY AGENT). Same as: Diprivan propofol No Notes: If M emoria mg/mL 6-11 Diprivan - l (Titrate.) 18:44: change Salma nn IV 1,000 mg 00 bottle & tubing every 12 hr Per state nursing law propofol can only be given by a nurse if patient is intubated or being intubated (unless the nurse is a UTILITY AGENT). Same as: Diprivan propofol No Notes: If M emoria mg/mL 6-11 Diprivan - l (Titrate.) 18:44: change Salma nn IV 1,000 mg 00 bottle & tubing every 12 hr Per state nursing law propofol can only be given by a nurse if patient is intubated or being intubated (unless the nurse is a UTILITY AGENT). Same as: Diprivan propofol No Notes: If M emoria mg/mL 6-11 Diprivan - l (Titrate.) 18:44: change Salma nn IV 1,000 mg 00 bottle & tubing every 12 hr Per state nursing law propofol can only be given by a nurse if patient is intubated or being intubated (unless the nurse is a UTILITY AGENT). Same as: Diprivan propofol No Notes: If M emoria mg/mL 6-11 Diprivan - l (Titrate.) 18:44: change Salma nn IV 1,000 mg 00 bottle & tubing every 12 hr Per state nursing law propofol can only be given by a nurse if patient is intubated or being intubated (unless the nurse is a UTILITY AGENT). Same as: Diprivan propofol No Notes: If M emoria mg/mL 6-11 Diprivan - l (Titrate.) 18:44: change Salma nn IV 1,000 mg 00 bottle & tubing every 12 hr Per state nursing law propofol can only be given by a nurse if patient is intubated or being intubated (unless the nurse is a UTILITY AGENT). Same as: Diprivan propofol No Notes: If M emoria mg/mL 6-11 Diprivan - l (Titrate.) 18:44: change Salma nn IV 1,000 mg 00 bottle & tubing every 12 hr Per state nursing law propofol can only be given by a nurse if patient is intubated or being intubated (unless the nurse is a UTILITY AGENT). Same as: Diprivan propofol No Notes: If M emoria mg/mL 6-11 Diprivan - l (Titrate.) 18:44: change Salma nn IV 1,000 mg 00 bottle & tubing every 12 hr Per state nursing law propofol can only be given by a nurse if patient is intubated or being intubated (unless the nurse is a UTILITY AGENT). Same as: Diprivan propofol No Notes: If M emoria mg/mL 6-11 Diprivan - l (Titrate.) 18:44: change Salma nn IV 1,000 mg 00 bottle & tubing every 12 hr Per state nursing law propofol can only be given by a nurse if patient is intubated or being intubated (unless the nurse is a UTILITY AGENT). Same as: Diprivan propofol No Notes: If M emoria mg/mL 6-11 Diprivan - l (Titrate.) 18:44: change Salma nn IV 1,000 mg 00 bottle & tubing every 12 hr Per state nursing law propofol can only be given by a nurse if patient is intubated or being intubated (unless the nurse is a UTILITY AGENT). Same as: Diprivan propofol No Notes: If M emoria mg/mL 6-11 Diprivan - l (Titrate.) 18:44: change Salma nn IV 1,000 mg 00 bottle & tubing every 12 hr Per state nursing law propofol can only be given by a nurse if patient is intubated or being intubated (unless the nurse is a UTILITY AGENT). Same as: Diprivan propofol No Notes: If M emoria mg/mL 6-11 Diprivan - l (Titrate.) 18:44: change Salma nn IV 1,000 mg 00 bottle & tubing every 12 hr Per state nursing law propofol can only be given by a nurse if patient is intubated or being intubated (unless the nurse is a UTILITY AGENT). Same as: Diprivan propofol No Notes: If M emoria mg/mL 6-11 Diprivan - l (Titrate.) 18:44: change Salma nn IV 1,000 mg 00 bottle & tubing every 12 hr Per state nursing law propofol can only be given by a nurse if patient is intubated or being intubated (unless the nurse is a UTILITY AGENT). Same as: Diprivan propofol No Notes: If M emoria mg/mL 6-11 Diprivan - l (Titrate.) 18:44: change Salma nn IV 1,000 mg 00 bottle & tubing every 12 hr Per state nursing law propofol can only be given by a nurse if patient is intubated or being intubated (unless the nurse is a UTILITY AGENT). Same as: Diprivan propofol No Notes: If M emoria mg/mL 6-11 Diprivan - l (Titrate.) 18:44: change Salma nn IV 1,000 mg 00 bottle & tubing every 12 hr Per state nursing law propofol can only be given by a nurse if patient is intubated or being intubated (unless the nurse is a UTILITY AGENT). Same as: Diprivan propofol No Notes: If M emoria mg/mL 6-11 Diprivan - l (Titrate.) 18:44: change Salma nn IV 1,000 mg 00 bottle & tubing every 12 hr Per state nursing law propofol can only be given by a nurse if patient is intubated or being intubated (unless the nurse is a UTILITY AGENT). Same as: Diprivan propofol No Notes: If M emoria mg/mL 6-11 Diprivan - l (Titrate.) 18:44: change Salma nn IV 1,000 mg 00 bottle & tubing every 12 hr Per state nursing law propofol can only be given by a nurse if patient is intubated or being intubated (unless the nurse is a UTILITY AGENT). Same as: Diprivan propofol No Notes: If M emoria mg/mL 6-11 Diprivan - l (Titrate.) 18:44: change Salma nn IV 1,000 mg 00 bottle & tubing every 12 hr Per state nursing law propofol can only be given by a nurse if patient is intubated or being intubated (unless the nurse is a UTILITY AGENT). Same as: Diprivan chlorhexidi No Notes: Semaj shashi ne 6-11 (Same As: l gluconate 18:27: Peridex) Herm avis 1.2 MG/ML 00 Mouthwash chlorhexidi No Notes: Semaj shashi ne 6-11 (Same As: l gluconate 18:27: Peridex) Herm avis 1.2 MG/ML 00 Mouthwash chlorhexidi No Notes: Semaj shashi ne 6-11 (Same As: l gluconate 18:27: Peridex) Herm avis 1.2 MG/ML 00 Mouthwash chlorhexidi No Notes: Semaj shashi ne 6-11 (Same As: l gluconate 18:27: Peridex) Herm avis 1.2 MG/ML 00 Mouthwash chlorhexidi No Notes: Semaj shashi ne 6-11 (Same As: l gluconate 18:27: Peridex) Herm avis 1.2 MG/ML 00 Mouthwash chlorhexidi No Notes: Semaj shashi ne 6-11 (Same As: l gluconate 18:27: Peridex) Herm avis 1.2 MG/ML 00 Mouthwash chlorhexidi No Notes: Semaj shashi ne 6-11 (Same As: l gluconate 18:27: Peridex) Herm avis 1.2 MG/ML 00 Mouthwash chlorhexidi No Notes: Semaj shashi ne 6-11 (Same As: l gluconate 18:27: Peridex) Herm avis 1.2 MG/ML 00 Mouthwash chlorhexidi No Notes: Semaj shashi ne 6-11 (Same As: l gluconate 18:27: Peridex) Herm avis 1.2 MG/ML 00 Mouthwash chlorhexidi No Notes: Semaj shashi ne 6-11 (Same As: l gluconate 18:27: Peridex) Herm avis 1.2 MG/ML 00 Mouthwash chlorhexidi No Notes: Semaj shashi ne 6-11 (Same As: l gluconate 18:27: Peridex) Herm avis 1.2 MG/ML 00 Mouthwash chlorhexidi No Notes: Semaj shashi ne 6-11 (Same As: l gluconate 18:27: Peridex) Herm avis 1.2 MG/ML 00 Mouthwash chlorhexidi No Notes: Semaj shashi ne 6-11 (Same As: l gluconate 18:27: Peridex) Herm avis 1.2 MG/ML 00 Mouthwash chlorhexidi No Notes: Semaj shashi ne 6-11 (Same As: l gluconate 18:27: Peridex) Herm avis 1.2 MG/ML 00 Mouthwash chlorhexidi No Notes: Semaj shashi ne 6-11 (Same As: l gluconate 18:27: Peridex) Herm avis 1.2 MG/ML 00 Mouthwash chlorhexidi No Notes: Semaj shashi ne 6-11 (Same As: l gluconate 18:27: Peridex) Herm avis 1.2 MG/ML 00 Mouthwash chlorhexidi No Notes: Semaj shashi ne 6-11 (Same As: l gluconate 18:27: Peridex) Herm avis 1.2 MG/ML 00 Mouthwash chlorhexidi No Notes: Semaj shashi ne 6-11 (Same As: l gluconate 18:27: Peridex) Herm avis 1.2 MG/ML 00 Mouthwash chlorhexidi No Notes: Semaj shashi ne 6-11 (Same As: l gluconate 18:27: Peridex) Herm avis 1.2 MG/ML 00 Mouthwash chlorhexidi No Notes: Semaj shashi ne 6-11 (Same As: l gluconate 18:27: Peridex) Herm avis 1.2 MG/ML 00 Mouthwash chlorhexidi No Notes: Semaj shashi ne 6-11 (Same As: l gluconate 18:27: Peridex) Herm avis 1.2 MG/ML 00 Mouthwash chlorhexidi No Notes: Semaj shashi ne 6-11 (Same As: l gluconate 18:27: Peridex) Herm avis 1.2 MG/ML 00 Mouthwash chlorhexidi No Notes: Semaj shashi ne 6-11 (Same As: l gluconate 18:27: Peridex) Herm avis 1.2 MG/ML 00 Mouthwash chlorhexidi No Notes: Semaj shashi ne 6-11 (Same As: l gluconate 18:27: Peridex) Herm avis 1.2 MG/ML 00 Mouthwash chlorhexidi No Notes: Semaj shashi ne 6-11 (Same As: l gluconate 18:27: Peridex) Herm avis 1.2 MG/ML 00 Mouthwash chlorhexidi No Notes: Semaj shashi ne 6-11 (Same As: l gluconate 18:27: Peridex) Herm avis 1.2 MG/ML 00 Mouthwash chlorhexidi No Notes: Semaj shashi ne 6-11 (Same As: l gluconate 18:27: Peridex) Herm avis 1.2 MG/ML 00 Mouthwash Succinylcho No Notes: Semaj shashi line 6-11 (Same As: l 18:26: Anectine) Lead Etomidate No Notes: Memori a 6-11 (Same as: l 18:26: Amidate). Vinnie Per state nursing law etomidate can only be given by a nurse if patient is intubated or being intubated (unless the nurse is a UTILITY AGENT). Succinylcho No Notes: Semaj shashi line 6-11 (Same As: l 18:26: Anectine) Vinnie Etomidate No Notes: Memori a 6-11 (Same as: l 18:26: Amidate). Vinnie Per state nursing law etomidate can only be given by a nurse if patient is intubated or being intubated (unless the nurse is a UTILITY AGENT). Succinylcho No Notes: Semaj shashi line 6-11 (Same As: l 18:26: Anectine) Vinnie Etomidate No Notes: Memori a 6-11 (Same as: l 18:26: Amidate). Vinnie Per state nursing law etomidate can only be given by a nurse if patient is intubated or being intubated (unless the nurse is a UTILITY AGENT). Succinylcho No Notes: Semaj shashi line 6-11 (Same As: l 18:26: Anectine) Vinnie Etomidate No Notes: Memori a 6-11 (Same as: l 18:26: Amidate). Vinnie 00 Per state nursing law etomidate can only be given by a nurse if patient is intubated or being intubated (unless the nurse is a UTILITY AGENT). Succinylcho No Notes: Semaj shashi line 6-11 (Same As: l 18:26: Anectine) Vinnie Etomidate No Notes: Memori a 6-11 (Same as: l 18:26: Amidate). Lead 00 Per state nursing law etomidate can only be given by a nurse if patient is intubated or being intubated (unless the nurse is a UTILITY AGENT). Succinylcho No Notes: Semaj shashi line 6-11 (Same As: l 18:26: Anectine) Vinnie Etomidate No Notes: Memori a 6-11 (Same as: l 18:26: Amidate). Vinnie 00 Per state nursing law etomidate can only be given by a nurse if patient is intubated or being intubated (unless the nurse is a UTILITY AGENT). Succinylcho No Notes: Semaj shashi line 6-11 (Same As: l 18:26: Anectine) Vinnie Etomidate No Notes: Memori a 6-11 (Same as: l 18:26: Amidate). Lead 00 Per state nursing law etomidate can only be given by a nurse if patient is intubated or being intubated (unless the nurse is a UTILITY AGENT). Succinylcho No Notes: Semaj shashi line 6-11 (Same As: l 18:26: Anectine) Vinnie Etomidate No Notes: Memori a 6-11 (Same as: l 18:26: Amidate). Vinnie 00 Per state nursing law etomidate can only be given by a nurse if patient is intubated or being intubated (unless the nurse is a UTILITY AGENT). Succinylcho No Notes: Semaj shashi line 6-11 (Same As: l 18:26: Anectine) Lead Etomidate No Notes: Memori a 6-11 (Same as: l 18:26: Amidate). Vinnie 00 Per state nursing law etomidate can only be given by a nurse if patient is intubated or being intubated (unless the nurse is a UTILITY AGENT). Succinylcho No Notes: Semaj shashi line 6-11 (Same As: l 18:26: Anectine) Vinnie Etomidate No Notes: Memori a 6-11 (Same as: l 18:26: Amidate). Lead Per state nursing law etomidate can only be given by a nurse if patient is intubated or being intubated (unless the nurse is a UTILITY AGENT). Succinylcho No Notes: Semaj shashi line 6-11 (Same As: l 18:26: Anectine) Lead Etomidate No Notes: Memori a 6-11 (Same as: l 18:26: Amidate). Lead 00 Per state nursing law etomidate can only be given by a nurse if patient is intubated or being intubated (unless the nurse is a UTILITY AGENT). Succinylcho No Notes: Semaj shashi line 6-11 (Same As: l 18:26: Anectine) Lead Etomidate No Notes: Memori a 6-11 (Same as: l 18:26: Amidate). Vinnie 00 Per state nursing law etomidate can only be given by a nurse if patient is intubated or being intubated (unless the nurse is a UTILITY AGENT). Succinylcho No Notes: Semaj shashi line 6-11 (Same As: l 18:26: Anectine) Vinnie Etomidate No Notes: Memori a 6-11 (Same as: l 18:26: Amidate). Lead 00 Per state nursing law etomidate can only be given by a nurse if patient is intubated or being intubated (unless the nurse is a UTILITY AGENT). Succinylcho No Notes: Semaj shashi line 6-11 (Same As: l 18:26: Anectine) Lead Etomidate No Notes: Memori a 6-11 (Same as: l 18:26: Amidate). Vinnie 00 Per state nursing law etomidate can only be given by a nurse if patient is intubated or being intubated (unless the nurse is a UTILITY AGENT). Succinylcho No Notes: Semaj shashi line 6-11 (Same As: l 18:26: Anectine) Lead 00 Etomidate No Notes: Memori a 6-11 (Same as: l 18:26: Amidate). Lead 00 Per state nursing law etomidate can only be given by a nurse if patient is intubated or being intubated (unless the nurse is a UTILITY AGENT). Succinylcho No Notes: Semaj shashi line 6-11 (Same As: l 18:26: Anectine) Lead Etomidate No Notes: Memori a 6-11 (Same as: l 18:26: Amidate). Vinnie 00 Per state nursing law etomidate can only be given by a nurse if patient is intubated or being intubated (unless the nurse is a UTILITY AGENT). Succinylcho No Notes: Semaj shashi line 6-11 (Same As: l 18:26: Anectine) Lead Etomidate No Notes: Memori a 6-11 (Same as: l 18:26: Amidate). Lead 00 Per state nursing law etomidate can only be given by a nurse if patient is intubated or being intubated (unless the nurse is a UTILITY AGENT). Succinylcho No Notes: Semaj shashi line 6-11 (Same As: l 18:26: Anectine) Lead 00 Etomidate No Notes: Memori a 6-11 (Same as: l 18:26: Amidate). Vinnie 00 Per state nursing law etomidate can only be given by a nurse if patient is intubated or being intubated (unless the nurse is a UTILITY AGENT). Succinylcho No Notes: Semaj shashi line 6-11 (Same As: l 18:26: Anectine) Lead 00 Etomidate No Notes: Memori a 6-11 (Same as: l 18:26: Amidate). Vinnie 00 Per state nursing law etomidate can only be given by a nurse if patient is intubated or being intubated (unless the nurse is a UTILITY AGENT). Succinylcho No Notes: Semaj shashi line 6-11 (Same As: l 18:26: Anectine) Lead Etomidate No Notes: Memori a 6-11 (Same as: l 18:26: Amidate). Lead 00 Per state nursing law etomidate can only be given by a nurse if patient is intubated or being intubated (unless the nurse is a UTILITY AGENT). Succinylcho No Notes: Semaj shashi line 6-11 (Same As: l 18:26: Anectine) Vinnie Etomidate No Notes: Memori a 6-11 (Same as: l 18:26: Amidate). Lead 00 Per state nursing law etomidate can only be given by a nurse if patient is intubated or being intubated (unless the nurse is a UTILITY AGENT). Succinylcho No Notes: Semaj shashi line 6-11 (Same As: l 18:26: Anectine) Vinnie Etomidate No Notes: Memori a 6-11 (Same as: l 18:26: Amidate). Lead 00 Per state nursing law etomidate can only be given by a nurse if patient is intubated or being intubated (unless the nurse is a UTILITY AGENT). Succinylcho No Notes: Smeaj shashi line 6-11 (Same As: l 18:26: Anectine) Vinnie Etomidate No Notes: Memori a 6-11 (Same as: l 18:26: Amidate). Lead 00 Per state nursing law etomidate can only be given by a nurse if patient is intubated or being intubated (unless the nurse is a UTILITY AGENT). Succinylcho No Notes: Semaj shashi line 6-11 (Same As: l 18:26: Anectine) Vinnie Etomidate No Notes: Memori a 6-11 (Same as: l 18:26: Amidate). Vinnie 00 Per state nursing law etomidate can only be given by a nurse if patient is intubated or being intubated (unless the nurse is a UTILITY AGENT). Succinylcho No Notes: Semaj shashi line 6-11 (Same As: l 18:26: Anectine) Lead 00 Etomidate No Notes: Memori a 6-11 (Same as: l 18:26: Amidate). Lead 00 Per state nursing law etomidate can only be given by a nurse if patient is intubated or being intubated (unless the nurse is a UTILITY AGENT). Succinylcho No Notes: Semaj shashi line 6-11 (Same As: l 18:26: Anectine) Lead 00 Etomidate No Notes: Memori a 6-11 (Same as: l 18:26: Amidate). Vinnie 00 Per state nursing law etomidate can only be given by a nurse if patient is intubated or being intubated (unless the nurse is a UTILITY AGENT). Succinylcho No Notes: Semaj shashi line 6-11 (Same As: l 18:26: Anectine) Lead 00 Etomidate No Notes: Memori a 6-11 (Same as: l 18:26: Amidate). Vinnie 00 Per state nursing law etomidate can only be given by a nurse if patient is intubated or being intubated (unless the nurse is a UTILITY AGENT). Lasix No Notes: Memoria 02-23 (Same as: l 17:49: Lasix) Lead 00 MEDICATION WASTE Product Size: 40 mg Product Wasted: ___ mg Albuterol No Notes: Memori a 0.833 MG/ML 6-11 (Same as: l 17:49: Duoneb) Vinnie Ipratropium 00 Recluse 0.167 MG/ML Inhalant Solution [DuoNeb] Lasix No Notes: Memoria 6-11 (Same as: l 17:49: Lasix) Lead 00 MEDICATION WASTE Product Size: 40 mg Product Wasted: ___ mg Albuterol No Notes: Memori a 0.833 MG/ML 6-11 (Same as: l 17:49: Duoneb) Vinnie Ipratropium 00 Recluse 0.167 MG/ML Inhalant Solution [DuoNeb] Lasix No Notes: Memoria 6-11 (Same as: l 17:49: Lasix) Vinnie 00 MEDICATION WASTE Product Size: 40 mg Product Wasted: ___ mg Albuterol No Notes: Memori a 0.833 MG/ML 6-11 (Same as: 17:49: Duoneb) Lead Ipratropium 00 Recluse 0.167 MG/ML Inhalant Solution [DuoNeb] Lasix No Notes: Memoria 6-11 (Same as: l 17:49: Lasix) Lead 00 MEDICATION WASTE Product Size: 40 mg Product Wasted: ___ mg Albuterol No Notes: Memori a 0.833 MG/ML 6-11 (Same as: 17:49: Duoneb) Lead Ipratropium 00 Recluse 0.167 MG/ML Inhalant Solution [DuoNeb] Lasix No Notes: Memoria 6-11 (Same as: l 17:49: Lasix) Lead 00 MEDICATION WASTE Product Size: 40 mg Product Wasted: ___ mg Albuterol No Notes: Memori a 0.833 MG/ML 6-11 (Same as: 17:49: Duoneb) Lead Ipratropium 00 Recluse 0.167 MG/ML Inhalant Solution [DuoNeb] Lasix No Notes: Memoria 6-11 (Same as: l 17:49: Lasix) Vinnie 00 MEDICATION WASTE Product Size: 40 mg Product Wasted: ___ mg Albuterol No Notes: Memori a 0.833 MG/ML 6-11 (Same as: 17:49: Duoneb) Lead Ipratropium 00 Recluse 0.167 MG/ML Inhalant Solution [DuoNeb] Lasix No Notes: Memoria 6-11 (Same as: l 17:49: Lasix) Lead 00 MEDICATION WASTE Product Size: 40 mg Product Wasted: ___ mg Albuterol No Notes: Memori a 0.833 MG/ML 6-11 (Same as: l 17:49: Duoneb) Lead Ipratropium 00 Recluse 0.167 MG/ML Inhalant Solution [DuoNeb] Lasix No Notes: Memoria 6-11 (Same as: l 17:49: Lasix) Vinnie 00 MEDICATION WASTE Product Size: 40 mg Product Wasted: ___ mg Albuterol No Notes: Memori a 0.833 MG/ML 6-11 (Same as: 17:49: Duoneb) Lead Ipratropium 00 Recluse 0.167 MG/ML Inhalant Solution [DuoNeb] Lasix No Notes: Memoria 6-11 (Same as: l 17:49: Lasix) Vinnie 00 MEDICATION WASTE Product Size: 40 mg Product Wasted: ___ mg Albuterol No Notes: Memori a 0.833 MG/ML 6-11 (Same as: 17:49: Duoneb) Lead Ipratropium 00 Recluse 0.167 MG/ML Inhalant Solution [DuoNeb] Lasix No Notes: Memoria 6-11 (Same as: l 17:49: Lasix) Lead 00 MEDICATION WASTE Product Size: 40 mg Product Wasted: ___ mg Albuterol No Notes: Memori a 0.833 MG/ML 6-11 (Same as: 17:49: Duoneb) Vinnie Ipratropium 00 Recluse 0.167 MG/ML Inhalant Solution [DuoNeb] Lasix No Notes: Memoria 6-11 (Same as: l 17:49: Lasix) Vinnie 00 MEDICATION WASTE Product Size: 40 mg Product Wasted: ___ mg Albuterol No Notes: Memori a 0.833 MG/ML 6-11 (Same as: 17:49: Duoneb) Vinnie Ipratropium 00 Recluse 0.167 MG/ML Inhalant Solution [DuoNeb] Lasix No Notes: Memoria 6-11 (Same as: l 17:49: Lasix) Lead 00 MEDICATION WASTE Product Size: 40 mg Product Wasted: ___ mg Albuterol No Notes: Memori a 0.833 MG/ML 6-11 (Same as: 17:49: Duoneb) Vinnie Ipratropium 00 Recluse 0.167 MG/ML Inhalant Solution [DuoNeb] Lasix No Notes: Memoria 6-11 (Same as: l 17:49: Lasix) Lead 00 MEDICATION WASTE Product Size: 40 mg Product Wasted: ___ mg Albuterol No Notes: Memori a 0.833 MG/ML 6-11 (Same as: 17:49: Duoneb) Vinnie Ipratropium 00 Recluse 0.167 MG/ML Inhalant Solution [DuoNeb] Lasix No Notes: Memoria 6-11 (Same as: l 17:49: Lasix) Vinnie 00 MEDICATION WASTE Product Size: 40 mg Product Wasted: ___ mg Albuterol No Notes: Memori a 0.833 MG/ML 6-11 (Same as: :49: Duoneb) Lead Ipratropium 00 Recluse 0.167 MG/ML Inhalant Solution [DuoNeb] Lasix No Notes: Memoria 6-11 (Same as: l 17:49: Lasix) Lead 00 MEDICATION WASTE Product Size: 40 mg Product Wasted: ___ mg Albuterol No Notes: Memori a 0.833 MG/ML 6-11 (Same as: 17:49: Duoneb) Vinnie Ipratropium 00 Recluse 0.167 MG/ML Inhalant Solution [DuoNeb] Lasix No Notes: Memoria 6-11 (Same as: l 17:49: Lasix) Lead 00 MEDICATION WASTE Product Size: 40 mg Product Wasted: ___ mg Albuterol No Notes: Memori a 0.833 MG/ML 6-11 (Same as: 17:49: Duoneb) Lead Ipratropium 00 Recluse 0.167 MG/ML Inhalant Solution [DuoNeb] Lasix No Notes: Memoria 6-11 (Same as: l 17:49: Lasix) Vinnie 00 MEDICATION WASTE Product Size: 40 mg Product Wasted: ___ mg Albuterol No Notes: Memori a 0.833 MG/ML 6-11 (Same as: l 17:49: Duoneb) Vinnie Ipratropium 00 Recluse 0.167 MG/ML Inhalant Solution [DuoNeb] Lasix No Notes: Memoria 6-11 (Same as: l 17:49: Lasix) Vinnie 00 MEDICATION WASTE Product Size: 40 mg Product Wasted: ___ mg Albuterol No Notes: Memori a 0.833 MG/ML 6-11 (Same as: 17:49: Duoneb) Lead Ipratropium 00 Recluse 0.167 MG/ML Inhalant Solution [DuoNeb] Lasix No Notes: Memoria 6-11 (Same as: l 17:49: Lasix) Lead 00 MEDICATION WASTE Product Size: 40 mg Product Wasted: ___ mg Lasix No Notes: Memoria 6-11 (Same as: l 17:49: Lasix) Vinnie 00 MEDICATION WASTE Product Size: 40 mg Product Wasted: ___ mg Albuterol No Notes: Memori a 0.833 MG/ML 6-11 (Same as: 17:49: Duoneb) Lead Ipratropium 00 Recluse 0.167 MG/ML Inhalant Solution [DuoNeb] Albuterol No Notes: Memori a 0.833 MG/ML 6-11 (Same as: l 17:49: Duoneb) Lead Ipratropium 00 Recluse 0.167 MG/ML Inhalant Solution [DuoNeb] Lasix No Notes: Memoria 6-11 (Same as: l 17:49: Lasix) Vinnie 00 MEDICATION WASTE Product Size: 40 mg Product Wasted: ___ mg Albuterol No Notes: Memori a 0.833 MG/ML 6-11 (Same as: 17:49: Duoneb) Lead Ipratropium 00 Recluse 0.167 MG/ML Inhalant Solution [DuoNeb] Lasix No Notes: Memoria 6-11 (Same as: l 17:49: Lasix) Vinnie 00 MEDICATION WASTE Product Size: 40 mg Product Wasted: ___ mg Albuterol No Notes: Memori a 0.833 MG/ML 6-11 (Same as: 17:49: Duoneb) Vinnie Ipratropium 00 Recluse 0.167 MG/ML Inhalant Solution [DuoNeb] Lasix No Notes: Memoria 6-11 (Same as: 17:49: Lasix) Vinnie 00 MEDICATION WASTE Product Size: 40 mg Product Wasted: ___ mg Albuterol No Notes: Memori a 0.833 MG/ML 6-11 (Same as: :49: Duoneb) Lead Ipratropium 00 Recluse 0.167 MG/ML Inhalant Solution [DuoNeb] Lasix No Notes: Memoria 6-11 (Same as: 17:49: Lasix) Vinnie 00 MEDICATION WASTE Product Size: 40 mg Product Wasted: ___ mg Albuterol No Notes: Memori a 0.833 MG/ML 6-11 (Same as: 17:49: Duoneb) Lead Ipratropium 00 Recluse 0.167 MG/ML Inhalant Solution [DuoNeb] Lasix No Notes: Memoria 6-11 (Same as: l 17:49: Lasix) Lead 00 MEDICATION WASTE Product Size: 40 mg Product Wasted: ___ mg Albuterol No Notes: Memori a 0.833 MG/ML 6-11 (Same as: 17:49: Duoneb) Vinnie Ipratropium 00 Recluse 0.167 MG/ML Inhalant Solution [DuoNeb] Lasix No Notes: Memoria 6-11 (Same as: l 17:49: Lasix) Lead 00 MEDICATION WASTE Product Size: 40 mg Product Wasted: ___ mg Albuterol 2018- No Notes: Memori a 0.833 MG/ML 02-23 (Same as: l 17:49: Duoneb) Vinnie Ipratropium 00 Recluse 0.167 MG/ML Inhalant Solution [DuoNeb] Lasix No Notes: Memoria 6 (Same as: l 17:49: Lasix) Vinnie MEDICATION WASTE Product Size: 40 mg Product Wasted: ___ mg Albuterol 2018- No Notes: Memori a 0.833 MG/ML 02-23 (Same as: 17:49: Duoneb) Vinnie Ipratropium 00 Recluse 0.167 MG/ML Inhalant Solution [DuoNeb] meropenem No Notes: Memori a 02-23 Same as l 15:00: Merrem Vinnie 00 MEDICATION WASTE Product Size: 500 mg Product Wasted: ___ mg meropenem 2018-0 No Notes: Memori a 02-23 Same as l 15:00: Merrem Vinnie MEDICATION WASTE Product Size: 500 mg Product Wasted: ___ mg meropenem 2018-0 No Notes: Memori a 02-23 Same as l 15:00: Merrem Vinnie 00 MEDICATION WASTE Product Size: 500 mg Product Wasted: ___ mg meropenem 2018-0 No Notes: Memori a 02-23 Same as l 15:00: Merrem Vinnie 00 MEDICATION WASTE Product Size: 500 mg Product Wasted: ___ mg meropenem 2018-0 No Notes: Memori a 02-23 Same as l 15:00: Merrem Lead 00 MEDICATION WASTE Product Size: 500 mg Product Wasted: ___ mg meropenem 2018-0 No Notes: Memori a 02-23 Same as l 15:00: Merrem Lead 00 MEDICATION WASTE Product Size: 500 mg Product Wasted: ___ mg meropenem 2018-0 No Notes: Memori a 02-23 Same as l 15:00: Merrem Lead MEDICATION WASTE Product Size: 500 mg Product Wasted: ___ mg meropenem 2019-0 No Notes: Memori a 02-23 Same as l 15:00: Merrem Lead MEDICATION WASTE Product Size: 500 mg Product Wasted: ___ mg meropenem 2019-0 No Notes: Memori a 02-23 Same as l 15:00: Merrem Vinnie 00 MEDICATION WASTE Product Size: 500 mg Product Wasted: ___ mg meropenem 2019-0 No Notes: Memori a 02-23 Same as l 15:00: Merrem Vinnie MEDICATION WASTE Product Size: 500 mg Product Wasted: ___ mg meropenem 2019-0 No Notes: Memori a 02-23 Same as l 15:00: Merrem Lead MEDICATION WASTE Product Size: 500 mg Product Wasted: ___ mg meropenem 2019-0 No Notes: Memori a 02-23 Same as l 15:00: Merrem Vinnie 00 MEDICATION WASTE Product Size: 500 mg Product Wasted: ___ mg meropenem 2019-0 No Notes: Memori a 02-23 Same as l 15:00: Merrem Vinnie MEDICATION WASTE Product Size: 500 mg Product Wasted: ___ mg meropenem 2019-0 No Notes: Memori a 02-23 Same as l 15:00: Merrem Lead MEDICATION WASTE Product Size: 500 mg Product Wasted: ___ mg meropenem 2019-0 No Notes: Memori a 02-23 Same as l 15:00: Merrem Vinnie MEDICATION WASTE Product Size: 500 mg Product Wasted: ___ mg meropenem 2019-0 No Notes: Memori a 6- Same as l 15:00: Merrem Lead MEDICATION WASTE Product Size: 500 mg Product Wasted: ___ mg meropenem 2019-0 No Notes: Memori a 02-23 Same as l 15:00: Merrem Vinnie 00 MEDICATION WASTE Product Size: 500 mg Product Wasted: ___ mg meropenem 2019-0 No Notes: Memori a 02-23 Same as l 15:00: Merrem Vinnie MEDICATION WASTE Product Size: 500 mg Product Wasted: ___ mg meropenem 2019-0 No Notes: Memori a 02-23 Same as l 15:00: Merrem Vinnie MEDICATION WASTE Product Size: 500 mg Product Wasted: ___ mg meropenem 2019-0 No Notes: Memori a 02-23 Same as l 15:00: Merrem Vinnie MEDICATION WASTE Product Size: 500 mg Product Wasted: ___ mg meropenem 2019-0 No Notes: Memori a 02-23 Same as l 15:00: Merrem Vinnie MEDICATION WASTE Product Size: 500 mg Product Wasted: ___ mg meropenem 2019-0 No Notes: Memori a 02-23 Same as l 15:00: Merrem Vinnie MEDICATION WASTE Product Size: 500 mg Product Wasted: ___ mg meropenem 2019-0 No Notes: Memori a 02-23 Same as l 15:00: Merrem Vinnie MEDICATION WASTE Product Size: 500 mg Product Wasted: ___ mg meropenem 2019-0 No Notes: Memori a 02-23 Same as l 15:00: Merrem Vinnie MEDICATION WASTE Product Size: 500 mg Product Wasted: ___ mg meropenem 2019-0 No Notes: Memori a 02-23 Same as l 15:00: Merrem Vinnie 00 MEDICATION WASTE Product Size: 500 mg Product Wasted: ___ mg meropenem 2019-0 No Notes: Memori a 02-23 Same as l 15:00: Merrem Vinnie MEDICATION WASTE Product Size: 500 mg Product Wasted: ___ mg meropenem 2019-0 No Notes: Memori a 02-23 Same as l 15:00: Merrem Vinnie MEDICATION WASTE Product Size: 500 mg Product Wasted: ___ mg Famotidine 2019-0 No Notes: Memor ia 20 MG Oral 6-11 (Same as: l Tablet 14:00: Pepcid) Aspirin No Notes: Do Memor ia 6-11 not crush l 14:00: or chew. (Same As: Ecotrin) Famotidine No Notes: Memor ia 20 MG Oral 6-11 (Same as: l Tablet 14:00: Pepcid) Aspirin No Notes: Do Memor ia 6-11 not crush l 14:00: or chew. (Same As: Ecotrin) Famotidine No Notes: Memor ia 20 MG Oral 6-11 (Same as: l Tablet 14:00: Pepcid) Aspirin No Notes: Do Memor ia 6-11 not crush l 14:00: or chew. (Same As: Ecotrin) Famotidine No Notes: Memor ia 20 MG Oral 6-11 (Same as: l Tablet 14:00: Pepcid) Aspirin No Notes: Do Memor ia 6-11 not crush l 14:00: or chew. (Same As: Ecotrin) Famotidine No Notes: Memor ia 20 MG Oral 6-11 (Same as: l Tablet 14:00: Pepcid) Aspirin No Notes: Do Memor ia 6-11 not crush l 14:00: or chew. (Same As: Ecotrin) Famotidine No Notes: Memor ia 20 MG Oral 6-11 (Same as: l Tablet 14:00: Pepcid) Aspirin No Notes: Do Memor ia 6-11 not crush l 14:00: or chew. (Same As: Ecotrin) Famotidine No Notes: Memor ia 20 MG Oral 6-11 (Same as: l Tablet 14:00: Pepcid) Aspirin No Notes: Do Memor ia 6-11 not crush l 14:00: or chew. (Same As: Ecotrin) Famotidine No Notes: Memor ia 20 MG Oral 6-11 (Same as: l Tablet 14:00: Pepcid) Aspirin No Notes: Do Memor ia 6-11 not crush l 14:00: or chew. (Same As: Ecotrin) Famotidine No Notes: Memor ia 20 MG Oral 6-11 (Same as: l Tablet 14:00: Pepcid) Aspirin No Notes: Do Memor ia 6-11 not crush l 14:00: or chew. (Same As: Ecotrin) Famotidine No Notes: Memor ia 20 MG Oral 6-11 (Same as: l Tablet 14:00: Pepcid) Aspirin No Notes: Do Memor ia 6-11 not crush l 14:00: or chew. (Same As: Ecotrin) Famotidine No Notes: Memor ia 20 MG Oral 6-11 (Same as: l Tablet 14:00: Pepcid) Aspirin No Notes: Do Memor ia 6-11 not crush l 14:00: or chew. (Same As: Ecotrin) Famotidine No Notes: Memor ia 20 MG Oral 6-11 (Same as: l Tablet 14:00: Pepcid) Aspirin No Notes: Do Memor ia 6-11 not crush l 14:00: or chew. (Same As: Ecotrin) Famotidine No Notes: Memor ia 20 MG Oral 6-11 (Same as: l Tablet 14:00: Pepcid) Aspirin No Notes: Do Memor ia 6-11 not crush l 14:00: or chew. (Same As: Ecotrin) Famotidine No Notes: Memor ia 20 MG Oral 6-11 (Same as: l Tablet 14:00: Pepcid) Aspirin No Notes: Do Memor ia 6-11 not crush l 14:00: or chew. (Same As: Ecotrin) Famotidine No Notes: Memor ia 20 MG Oral 6-11 (Same as: l Tablet 14:00: Pepcid) Aspirin No Notes: Do Memor ia 6-11 not crush l 14:00: or chew. (Same As: Ecotrin) Famotidine No Notes: Memor ia 20 MG Oral 6-11 (Same as: l Tablet 14:00: Pepcid) Aspirin No Notes: Do Memor ia 6-11 not crush l 14:00: or chew. (Same As: Ecotrin) Famotidine No Notes: Memor ia 20 MG Oral 6-11 (Same as: l Tablet 14:00: Pepcid) Aspirin No Notes: Do Memor ia 6-11 not crush l 14:00: or chew. (Same As: Ecotrin) Famotidine No Notes: Memor ia 20 MG Oral 6-11 (Same as: l Tablet 14:00: Pepcid) Aspirin No Notes: Do Memor ia 6-11 not crush l 14:00: or chew. (Same As: Ecotrin) Famotidine No Notes: Memor ia 20 MG Oral 6-11 (Same as: l Tablet 14:00: Pepcid) Aspirin No Notes: Do Memor ia 6-11 not crush l 14:00: or chew. (Same As: Ecotrin) Famotidine No Notes: Memor ia 20 MG Oral 6-11 (Same as: l Tablet 14:00: Pepcid) Aspirin No Notes: Do Memor ia 6-11 not crush l 14:00: or chew. (Same As: Ecotrin) Famotidine No Notes: Memor ia 20 MG Oral 6-11 (Same as: l Tablet 14:00: Pepcid) Aspirin No Notes: Do Memor ia 6-11 not crush l 14:00: or chew. (Same As: Ecotrin) Famotidine No Notes: Memor ia 20 MG Oral 6-11 (Same as: l Tablet 14:00: Pepcid) Aspirin No Notes: Do Memor ia 6-11 not crush l 14:00: or chew. (Same As: Ecotrin) Famotidine No Notes: Memor ia 20 MG Oral 6-11 (Same as: l Tablet 14:00: Pepcid) Aspirin No Notes: Do Memor ia 6-11 not crush l 14:00: or chew. (Same As: Ecotrin) Famotidine No Notes: Memor ia 20 MG Oral 6-11 (Same as: l Tablet 14:00: Pepcid) Aspirin No Notes: Do Memor ia 6-11 not crush l 14:00: or chew. (Same As: Ecotrin) Famotidine No Notes: Memor ia 20 MG Oral 6-11 (Same as: l Tablet 14:00: Pepcid) Aspirin No Notes: Do Memor ia 6-11 not crush l 14:00: or chew. (Same As: Ecotrin) Famotidine No Notes: Memor ia 20 MG Oral 6-11 (Same as: l Tablet 14:00: Pepcid) Aspirin No Notes: Do Memor ia 6-11 not crush l 14:00: or chew. (Same As: Ecotrin) Famotidine No Notes: Memor ia 20 MG Oral 6-11 (Same as: l Tablet 14:00: Pepcid) Aspirin No Notes: Do Memor ia 6-11 not crush l 14:00: or chew. (Same As: Ecotrin) Thyroxine No Notes: Memori a 6-11 Take 1 l 11:30: hour Vinnie 00 before or 2 hours after meal; Enteral feeds may interefere with the absorption of this medication .(Same as:Levothr oid) Thyroxine No Notes: Memori a 6-11 Take 1 l 11:30: hour Lead 00 before or 2 hours after meal; Enteral feeds may interefere with the absorption of this medication .(Same as:Levothr oid) Thyroxine No Notes: Memori a 6-11 Take 1 l 11:30: hour Vinnie 00 before or 2 hours after meal; Enteral feeds may interefere with the absorption of this medication .(Same as:Levothr oid) Thyroxine No Notes: Memori a 6-11 Take 1 l 11:30: hour Lead 00 before or 2 hours after meal; Enteral feeds may interefere with the absorption of this medication .(Same as:Levothr oid) Thyroxine No Notes: Memori a 6-11 Take 1 l 11:30: hour Lead 00 before or 2 hours after meal; Enteral feeds may interefere with the absorption of this medication .(Same as:Levothr oid) Thyroxine No Notes: Memori a 6-11 Take 1 l 11:30: hour Lead 00 before or 2 hours after meal; Enteral feeds may interefere with the absorption of this medication .(Same as:Levothr oid) Thyroxine No Notes: Memori a 6-11 Take 1 l 11:30: hour Lead 00 before or 2 hours after meal; Enteral feeds may interefere with the absorption of this medication .(Same as:Levothr oid) Thyroxine No Notes: Memori a 6-11 Take 1 l 11:30: hour Vinnie 00 before or 2 hours after meal; Enteral feeds may interefere with the absorption of this medication .(Same as:Levothr oid) Thyroxine No Notes: Memori a 6-11 Take 1 l 11:30: hour Lead 00 before or 2 hours after meal; Enteral feeds may interefere with the absorption of this medication .(Same as:Levothr oid) Thyroxine No Notes: Memori a 6-11 Take 1 l 11:30: hour Lead 00 before or 2 hours after meal; Enteral feeds may interefere with the absorption of this medication .(Same as:Levothr oid) Thyroxine No Notes: Memori a 6-11 Take 1 l 11:30: hour Vinnie 00 before or 2 hours after meal; Enteral feeds may interefere with the absorption of this medication .(Same as:Levothr oid) Thyroxine No Notes: Memori a 6-11 Take 1 l 11:30: hour Vinnie 00 before or 2 hours after meal; Enteral feeds may interefere with the absorption of this medication .(Same as:Levothr oid) Thyroxine No Notes: Memori a 6-11 Take 1 l 11:30: hour Vinnie 00 before or 2 hours after meal; Enteral feeds may interefere with the absorption of this medication .(Same as:Levothr oid) Thyroxine No Notes: Memori a 6-11 Take 1 l 11:30: hour Lead 00 before or 2 hours after meal; Enteral feeds may interefere with the absorption of this medication .(Same as:Levothr oid) Thyroxine No Notes: Memori a 6-11 Take 1 l 11:30: hour Lead 00 before or 2 hours after meal; Enteral feeds may interefere with the absorption of this medication .(Same as:Levothr oid) Thyroxine No Notes: Memori a 6-11 Take 1 l 11:30: hour Lead 00 before or 2 hours after meal; Enteral feeds may interefere with the absorption of this medication .(Same as:Levothr oid) Thyroxine No Notes: Memori a 6-11 Take 1 l 11:30: hour Vinnie 00 before or 2 hours after meal; Enteral feeds may interefere with the absorption of this medication .(Same as:Levothr oid) Thyroxine No Notes: Memori a 6-11 Take 1 l 11:30: hour Lead 00 before or 2 hours after meal; Enteral feeds may interefere with the absorption of this medication .(Same as:Levothr oid) Thyroxine No Notes: Memori a 6-11 Take 1 l 11:30: hour Vinnie 00 before or 2 hours after meal; Enteral feeds may interefere with the absorption of this medication .(Same as:Levothr oid) Thyroxine No Notes: Memori a 6-11 Take 1 l 11:30: hour Lead 00 before or 2 hours after meal; Enteral feeds may interefere with the absorption of this medication .(Same as:Levothr oid) Thyroxine No Notes: Memori a 6-11 Take 1 l 11:30: hour Lead 00 before or 2 hours after meal; Enteral feeds may interefere with the absorption of this medication .(Same as:Levothr oid) Thyroxine No Notes: Memori a 6-11 Take 1 l 11:30: hour Vinnie 00 before or 2 hours after meal; Enteral feeds may interefere with the absorption of this medication .(Same as:Levothr oid) Thyroxine No Notes: Memori a 6-11 Take 1 l 11:30: hour Vinnie 00 before or 2 hours after meal; Enteral feeds may interefere with the absorption of this medication .(Same as:Levothr oid) Thyroxine No Notes: Memori a 6-11 Take 1 l 11:30: hour Lead 00 before or 2 hours after meal; Enteral feeds may interefere with the absorption of this medication .(Same as:Levothr oid) Thyroxine No Notes: Memori a 6-11 Take 1 l 11:30: hour Vinnie 00 before or 2 hours after meal; Enteral feeds may interefere with the absorption of this medication .(Same as:Levothr oid) Thyroxine No Notes: Memori a 6-11 Take 1 l 11:30: hour Lead 00 before or 2 hours after meal; Enteral feeds may interefere with the absorption of this medication .(Same as:Levothr oid) Thyroxine No Notes: Memori a 6-11 Take 1 l 11:30: hour Vinnie 00 before or 2 hours after meal; [...] Size: 1000 mg Product Wasted: ___ mg vancomycin No 2000 mg: Me moria + Sodium 6-11 infuse l Chloride 04:00: over 2.5 Salma nn 0.9% IV 250 00 hours For mL adult patients only: Round to nearest 250 mg per Medical Staff approval MEDICATION WASTE Product Size: 1000 mg Product Wasted: ___ mg vancomycin No 2000 mg: Me moria + Sodium 6-11 infuse l Chloride 04:00: over 2.5 Salma nn 0.9% IV 250 00 hours For mL adult patients only: Round to nearest 250 mg per Medical Staff approval MEDICATION WASTE Product Size: 1000 mg Product Wasted: ___ mg vancomycin No 2000 mg: Me moria + Sodium 6-11 infuse l Chloride 04:00: over 2.5 Salma nn 0.9% IV 250 00 hours For mL adult patients only: Round to nearest 250 mg per Medical Staff approval MEDICATION WASTE Product Size: 1000 mg Product Wasted: ___ mg vancomycin No 2000 mg: Me moria + Sodium 6-11 infuse l Chloride 04:00: over 2.5 Salma nn 0.9% IV 250 00 hours For mL adult patients only: Round to nearest 250 mg per Medical Staff approval MEDICATION WASTE Product Size: 1000 mg Product Wasted: ___ mg vancomycin No 2000 mg: Me moria + Sodium 6-11 infuse l Chloride 04:00: over 2.5 Salma nn 0.9% IV 250 00 hours For mL adult patients only: Round to nearest 250 mg per Medical Staff approval MEDICATION WASTE Product Size: 1000 mg Product Wasted: ___ mg vancomycin No 2000 mg: Me moria + Sodium 6-11 infuse l Chloride 04:00: over 2.5 Salma nn 0.9% IV 250 00 hours For mL adult patients only: Round to nearest 250 mg per Medical Staff approval MEDICATION WASTE Product Size: 1000 mg Product Wasted: ___ mg vancomycin 2000 mg: Me moria + Sodium 6-11 infuse l Chloride 04:00: over 2.5 Salma nn 0.9% IV 250 00 hours For mL adult patients only: Round to nearest 250 mg per Medical Staff approval MEDICATION WASTE Product Size: 1000 mg Product Wasted: ___ mg vancomycin No 2000 mg: Me moria + Sodium 6-11 infuse l Chloride 04:00: over 2.5 Salma nn 0.9% IV 250 00 hours For mL adult patients only: Round to nearest 250 mg per Medical Staff approval MEDICATION WASTE Product Size: 1000 mg Product Wasted: ___ mg vancomycin No 2000 mg: Me moria + Sodium 6-11 infuse l Chloride 04:00: over 2.5 Salma nn 0.9% IV 250 00 hours For mL adult patients only: Round to nearest 250 mg per Medical Staff approval MEDICATION WASTE Product Size: 1000 mg Product Wasted: ___ mg vancomycin No 2000 mg: Me moria + Sodium 6-11 infuse l Chloride 04:00: over 2.5 Salma nn 0.9% IV 250 00 hours For mL adult patients only: Round to nearest 250 mg per Medical Staff approval MEDICATION WASTE Product Size: 1000 mg Product Wasted: ___ mg vancomycin 2000 mg: Me moria + Sodium 6-11 infuse l Chloride 04:00: over 2.5 Salma nn 0.9% IV 250 00 hours For mL adult patients only: Round to nearest 250 mg per Medical Staff approval MEDICATION WASTE Product Size: 1000 mg Product Wasted: ___ mg vancomycin 2000 mg: Me moria + Sodium 6-11 infuse l Chloride 04:00: over 2.5 Salma nn 0.9% IV 250 00 hours For mL adult patients only: Round to nearest 250 mg per Medical Staff approval MEDICATION WASTE Product Size: 1000 mg Product Wasted: ___ mg vancomycin 2000 mg: Me moria + Sodium 6-11 infuse l Chloride 04:00: over 2.5 Salma nn 0.9% IV 250 00 hours For mL adult patients only: Round to nearest 250 mg per Medical Staff approval MEDICATION WASTE Product Size: 1000 mg Product Wasted: ___ mg vancomycin 2000 mg: Me moria + Sodium 6-11 infuse l Chloride 04:00: over 2.5 Salma nn 0.9% IV 250 00 hours For mL adult patients only: Round to nearest 250 mg per Medical Staff approval MEDICATION WASTE Product Size: 1000 mg Product Wasted: ___ mg vancomycin No 2000 mg: Me moria + Sodium 6-11 infuse l Chloride 04:00: over 2.5 Salma nn 0.9% IV 250 00 hours For mL adult patients only: Round to nearest 250 mg per Medical Staff approval MEDICATION WASTE Product Size: 1000 mg Product Wasted: ___ mg vancomycin 2019-0 No 2001 mg: Me moria + Sodium 6-11 infuse l Chloride 04:00: over 2.5 Salma nn 0.9% IV 250 00 hours For mL adult patients only: Round to nearest 250 mg per Medical Staff approval MEDICATION WASTE Product Size: 1000 mg Product Wasted: ___ mg vancomycin 2018- No 2000 mg: Me moria + Sodium 6-11 infuse l Chloride 04:00: over 2.5 Salma nn 0.9% IV 250 00 hours For mL adult patients only: Round to nearest 250 mg per Medical Staff approval MEDICATION WASTE Product Size: 1000 mg Product Wasted: ___ mg vancomycin 2018- No 2000 mg: Me moria + Sodium 6-11 infuse l Chloride 04:00: over 2.5 Salma nn 0.9% IV 250 00 hours For mL adult patients only: Round to nearest 250 mg per Medical Staff approval MEDICATION WASTE Product Size: 1000 mg Product Wasted: ___ mg vancomycin 2018- No 2000 mg: Me moria + Sodium 6-11 infuse l Chloride 04:00: over 2.5 Salma nn 0.9% IV 250 00 hours For mL adult patients only: Round to nearest 250 mg per Medical Staff approval MEDICATION WASTE Product Size: 1000 mg Product Wasted: ___ mg vancomycin 2018- No 2000 mg: Me moria + Sodium 6-11 infuse l Chloride 04:00: over 2.5 Salma nn 0.9% IV 250 00 hours For mL adult patients only: Round to nearest 250 mg per Medical Staff approval MEDICATION WASTE Product Size: 1000 mg Product Wasted: ___ mg vancomycin 2019-0 No 2001 mg: Me moria + Sodium 6-11 infuse l Chloride 04:00: over 2.5 Salma nn 0.9% IV 250 00 hours For mL adult patients only: Round to nearest 250 mg per Medical Staff approval MEDICATION WASTE Product Size: 1000 mg Product Wasted: ___ mg vancomycin 2018-0 No 2000 mg: Me moria + Sodium 6-11 infuse l Chloride 04:00: over 2.5 Salma nn 0.9% IV 250 00 hours For mL adult patients only: Round to nearest 250 mg per Medical Staff approval MEDICATION WASTE Product Size: 1000 mg Product Wasted: ___ mg vancomycin 2018- No 2001 mg: Me moria + Sodium 6-11 infuse l Chloride 04:00: over 2.5 Salma nn 0.9% IV 250 00 hours For mL adult patients only: Round to nearest 250 mg per Medical Staff approval MEDICATION WASTE Product Size: 1000 mg Product Wasted: ___ mg vancomycin No 2001 mg: Me moria + Sodium 6-11 infuse l Chloride 04:00: over 2.5 Salma nn 0.9% IV 250 00 hours For mL adult patients only: Round to nearest 250 mg per Medical Staff approval MEDICATION WASTE Product Size: 1000 mg Product Wasted: ___ mg vancomycin No 2001 mg: Me moria + Sodium 6-11 infuse l Chloride 04:00: over 2.5 Salma nn 0.9% IV 250 00 hours For mL adult patients only: Round to nearest 250 mg per Medical Staff approval MEDICATION WASTE Product Size: 1000 mg Product Wasted: ___ mg vancomycin No 2001 mg: Me moria + Sodium 6-11 infuse l Chloride 04:00: over 2.5 Salma nn 0.9% IV 250 00 hours For mL adult patients only: Round to nearest 250 mg per Medical Staff approval MEDICATION WASTE Product Size: 1000 mg Product Wasted: ___ mg atorvastati No Notes: Semaj shashi n 6-11 (Same As: l 02:00: Lipitor) atorvastati No Notes: Semaj shashi n 611 (Same As: l 02:00: Lipitor) atorvastati No Notes: Semaj shashi n 6-11 (Same As: l 02:00: Lipitor) atorvastati No Notes: Semaj shashi n 611 (Same As: l 02:00: Lipitor) atorvastati No Notes: Semaj shashi n 6-11 (Same As: l 02:00: Lipitor) atorvastati No Notes: Semaj shashi n 6-11 (Same As: l 02:00: Lipitor) Lead atorvastati No Notes: Semaj shashi n 6-11 (Same As: l 02:00: Lipitor) Vinnie atorvastati No Notes: Semaj shashi n 6-11 (Same As: l 02:00: Lipitor) Lead 00 atorvastati No Notes: Semaj shashi n 6-11 (Same As: l 02:00: Lipitor) Lead 00 atorvastati No Notes: Semaj shashi n 6-11 (Same As: l 02:00: Lipitor) Vinnie 00 atorvastati No Notes: Semaj shashi n 6-11 (Same As: l 02:00: Lipitor) Vinnie 00 atorvastati No Notes: Semaj shashi n 6-11 (Same As: l 02:00: Lipitor) Lead 00 atorvastati No Notes: Semaj shashi n 6-11 (Same As: l 02:00: Lipitor) Lead 00 atorvastati No Notes: Semaj shashi n 6-11 (Same As: l 02:00: Lipitor) Lead 00 atorvastati No Notes: Semaj shashi n 6-11 (Same As: l 02:00: Lipitor) Lead 00 atorvastati No Notes: Semaj shashi n 6-11 (Same As: l 02:00: Lipitor) Vinnie atorvastati No Notes: Semaj shashi n 6-11 (Same As: l 02:00: Lipitor) Vinnie 00 atorvastati No Notes: Semaj shashi n 6-11 (Same As: l 02:00: Lipitor) Lead atorvastati No Notes: Semaj shashi n 6-11 (Same As: l 02:00: Lipitor) Vinnie atorvastati No Notes: Semaj shasih n 6-11 (Same As: l 02:00: Lipitor) Vinnie atorvastati No Notes: Semaj shashi n 6-11 (Same As: l 02:00: Lipitor) atorvastati No Notes: Semaj shashi n 6-11 (Same As: l 02:00: Lipitor) atorvastati No Notes: Semaj shashi n 6-11 (Same As: l 02:00: Lipitor) atorvastati No Notes: Semaj shashi n 6-11 (Same As: l 02:00: Lipitor) atorvastati No Notes: Semaj shashi n 6-11 (Same As: l 02:00: Lipitor) atorvastati No Notes: Semaj shashi n 6-11 (Same As: l 02:00: Lipitor) atorvastati No Notes: Semaj shashi n 6-11 (Same As: l 02:00: Lipitor) Famotidine No Notes: Memor ia 20 MG Oral 6-10 (Same as: l Tablet 22:00: Pepcid) Famotidine No Notes: Memor ia 20 MG Oral 6-10 (Same as: l Tablet 22:00: Pepcid) Famotidine No Notes: Memor ia 20 MG Oral 6-10 (Same as: l Tablet 22:00: Pepcid) Famotidine No Notes: Memor ia 20 MG Oral 6-10 (Same as: l Tablet 22:00: Pepcid) Famotidine No Notes: Memor ia 20 MG Oral 6-10 (Same as: l Tablet 22:00: Pepcid) Famotidine No Notes: Memor ia 20 MG Oral 6-10 (Same as: l Tablet 22:00: Pepcid) Famotidine No Notes: Memor ia 20 MG Oral 6-10 (Same as: l Tablet 22:00: Pepcid) Famotidine No Notes: Memor ia 20 MG Oral 6-10 (Same as: l Tablet 22:00: Pepcid) Famotidine No Notes: Memor ia 20 MG Oral 6-10 (Same as: l Tablet 22:00: Pepcid) Famotidine No Notes: Memor ia 20 MG Oral 6-10 (Same as: l Tablet 22:00: Pepcid) Famotidine No Notes: Memor ia 20 MG Oral 6-10 (Same as: l Tablet 22:00: Pepcid) Famotidine No Notes: Memor ia 20 MG Oral 6-10 (Same as: l Tablet 22:00: Pepcid) Famotidine No Notes: Memor ia 20 MG Oral 6-10 (Same as: l Tablet 22:00: Pepcid) Famotidine No Notes: Memor ia 20 MG Oral 6-10 (Same as: l Tablet 22:00: Pepcid) Famotidine No Notes: Memor ia 20 MG Oral 6-10 (Same as: l Tablet 22:00: Pepcid) Famotidine No Notes: Memor ia 20 MG Oral 6-10 (Same as: l Tablet 22:00: Pepcid) Famotidine No Notes: Memor ia 20 MG Oral 6-10 (Same as: l Tablet 22:00: Pepcid) Famotidine No Notes: Memor ia 20 MG Oral 6-10 (Same as: l Tablet 22:00: Pepcid) Famotidine No Notes: Memor ia 20 MG Oral 6-10 (Same as: l Tablet 22:00: Pepcid) Famotidine No Notes: Memor ia 20 MG Oral 6-10 (Same as: l Tablet 22:00: Pepcid) Famotidine No Notes: Memor ia 20 MG Oral 6-10 (Same as: l Tablet 22:00: Pepcid) Famotidine No Notes: Memor ia 20 MG Oral 6-10 (Same as: l Tablet 22:00: Pepcid) Famotidine No Notes: Memor ia 20 MG Oral 6-10 (Same as: l Tablet 22:00: Pepcid) Famotidine No Notes: Memor ia 20 MG Oral 6-10 (Same as: l Tablet 22:00: Pepcid) Famotidine No Notes: Memor ia 20 MG Oral 6-10 (Same as: l Tablet 22:00: Pepcid) Famotidine No Notes: Memor ia 20 MG Oral 6-10 (Same as: l Tablet 22:00: Pepcid) Famotidine No Notes: Memor ia 20 MG Oral 6-10 (Same as: l Tablet 22:00: Pepcid) tramadol No Notes: Not Mem oria hydrochlori 6-10 to exceed l de 50 MG 20:50: 400mg/day. Her jin Oral Tablet 00 (Same As: Ultram) tramadol No Notes: Not Mem oria hydrochlori 6-10 to exceed l de 50 MG 20:50: 400mg/day. Her jin Oral Tablet 00 (Same As: Ultram) tramadol No Notes: Not Mem oria hydrochlori 6-10 to exceed l de 50 MG 20:50: 400mg/day. Her jin Oral Tablet 00 (Same As: Ultram) tramadol No Notes: Not Mem oria hydrochlori 6-10 to exceed l de 50 MG 20:50: 400mg/day. Her jin Oral Tablet 00 (Same As: Ultram) tramadol No Notes: Not Mem oria hydrochlori 6-10 to exceed l de 50 MG 20:50: 400mg/day. Her jin Oral Tablet 00 (Same As: Ultram) tramadol No Notes: Not Mem oria hydrochlori 6-10 to exceed l de 50 MG 20:50: 400mg/day. Her jin Oral Tablet 00 (Same As: Ultram) tramadol No Notes: Not Mem oria hydrochlori 6-10 to exceed l de 50 MG 20:50: 400mg/day. Her jin Oral Tablet 00 (Same As: Ultram) tramadol No Notes: Not Mem oria hydrochlori 6-10 to exceed l de 50 MG 20:50: 400mg/day. Her jin Oral Tablet 00 (Same As: Ultram) tramadol No Notes: Not Mem oria hydrochlori 6-10 to exceed l de 50 MG 20:50: 400mg/day. Her jin Oral Tablet 00 (Same As: Ultram) tramadol No Notes: Not Mem oria hydrochlori 6-10 to exceed l de 50 MG 20:50: 400mg/day. Her jin Oral Tablet 00 (Same As: Ultram) tramadol No Notes: Not Mem oria hydrochlori 6-10 to exceed l de 50 MG 20:50: 400mg/day. Her jin Oral Tablet 00 (Same As: Ultram) tramadol No Notes: Not Mem oria hydrochlori 6-10 to exceed l de 50 MG 20:50: 400mg/day. Her jin Oral Tablet 00 (Same As: Ultram) tramadol No Notes: Not Mem oria hydrochlori 6-10 to exceed l de 50 MG 20:50: 400mg/day. Her jin Oral Tablet 00 (Same As: Ultram) tramadol No Notes: Not Mem oria hydrochlori 6-10 to exceed l de 50 MG 20:50: 400mg/day. Her jin Oral Tablet 00 (Same As: Ultram) tramadol No Notes: Not Mem oria hydrochlori 6-10 to exceed l de 50 MG 20:50: 400mg/day. Her jin Oral Tablet 00 (Same As: Ultram) tramadol No Notes: Not Mem oria hydrochlori 6-10 to exceed l de 50 MG 20:50: 400mg/day. Her jin Oral Tablet 00 (Same As: Ultram) tramadol No Notes: Not Mem oria hydrochlori 6-10 to exceed l de 50 MG 20:50: 400mg/day. Her jin Oral Tablet 00 (Same As: Ultram) tramadol No Notes: Not Mem oria hydrochlori 6-10 to exceed l de 50 MG 20:50: 400mg/day. Her jin Oral Tablet 00 (Same As: Ultram) tramadol No Notes: Not Mem oria hydrochlori 6-10 to exceed l de 50 MG 20:50: 400mg/day. Her jin Oral Tablet 00 (Same As: Ultram) tramadol No Notes: Not Mem oria hydrochlori 6-10 to exceed l de 50 MG 20:50: 400mg/day. Her jin Oral Tablet 00 (Same As: Ultram) tramadol No Notes: Not Mem oria hydrochlori 6-10 to exceed l de 50 MG 20:50: 400mg/day. Her jin Oral Tablet 00 (Same As: Ultram) tramadol No Notes: Not Mem oria hydrochlori 6-10 to exceed l de 50 MG 20:50: 400mg/day. Her jin Oral Tablet 00 (Same As: Ultram) tramadol No Notes: Not Mem oria hydrochlori 6-10 to exceed l de 50 MG 20:50: 400mg/day. Her jin Oral Tablet 00 (Same As: Ultram) tramadol No Notes: Not Mem oria hydrochlori 6-10 to exceed l de 50 MG 20:50: 400mg/day. Her jin Oral Tablet 00 (Same As: Ultram) tramadol No Notes: Not Mem oria hydrochlori 6-10 to exceed l de 50 MG 20:50: 400mg/day. Her jin Oral Tablet 00 (Same As: Ultram) tramadol No Notes: Not Mem oria hydrochlori 6-10 to exceed l de 50 MG 20:50: 400mg/day. Her jin Oral Tablet 00 (Same As: Ultram) tramadol No Notes: Not Mem oria hydrochlori 6-10 to exceed l de 50 MG 20:50: 400mg/day. Her jin Oral Tablet 00 (Same As: Ultram) Vancomycin No 2000 mg: Me moria 6-10 infuse l 15:00: over 2.5 Vinnie 00 hours For adult patients only: Round to nearest 250 mg per Medical Staff approval MEDICATION WASTE Product Size: 1000 mg Product Wasted: ___ mg Vancomycin 2018- No 2000 mg: Me moria 6-10 infuse l 15:00: over 2.5 Vinnie 00 hours For adult patients only: Round to nearest 250 mg per Medical Staff approval MEDICATION WASTE Product Size: 1000 mg Product Wasted: ___ mg Vancomycin 2018- No 2000 mg: Me moria 6-10 infuse l 15:00: over 2.5 Lead 00 hours For adult patients only: Round to nearest 250 mg per Medical Staff approval MEDICATION WASTE Product Size: 1000 mg Product Wasted: ___ mg Vancomycin 2019-0 No 2001 mg: Me moria 6-10 infuse l 15:00: over 2.5 Lead 00 hours For adult patients only: Round to nearest 250 mg per Medical Staff approval MEDICATION WASTE Product Size: 1000 mg Product Wasted: ___ mg Vancomycin 2019-0 No 2001 mg: Me moria 6-10 infuse l 15:00: over 2.5 Lead 00 hours For adult patients only: Round to nearest 250 mg per Medical Staff approval MEDICATION WASTE Product Size: 1000 mg Product Wasted: ___ mg Vancomycin 2019-0 No 2001 mg: Me moria 6-10 infuse l 15:00: over 2.5 Vinnie 00 hours For adult patients only: Round to nearest 250 mg per Medical Staff approval MEDICATION WASTE Product Size: 1000 mg Product Wasted: ___ mg Vancomycin 2019-0 No 2001 mg: Me moria 6-10 infuse l 15:00: over 2.5 Vinnie 00 hours For adult patients only: Round to nearest 250 mg per Medical Staff approval MEDICATION WASTE Product Size: 1000 mg Product Wasted: ___ mg Vancomycin 2019-0 No 2001 mg: Me moria 6-10 infuse l 15:00: over 2.5 Vinnie 00 hours For adult patients only: Round to nearest 250 mg per Medical Staff approval MEDICATION WASTE Product Size: 1000 mg Product Wasted: ___ mg Vancomycin 2019-0 No 2001 mg: Me moria 6-10 infuse l 15:00: over 2.5 Lead 00 hours For adult patients only: Round to nearest 250 mg per Medical Staff approval MEDICATION WASTE Product Size: 1000 mg Product Wasted: ___ mg Vancomycin 2019-0 No 2001 mg: Me moria 6-10 infuse l 15:00: over 2.5 Lead 00 hours For adult patients only: Round to nearest 250 mg per Medical Staff approval MEDICATION WASTE Product Size: 1000 mg Product Wasted: ___ mg Vancomycin 2019-0 No 2001 mg: Me moria 6-10 infuse l 15:00: over 2.5 Vinnie 00 hours For adult patients only: Round to nearest 250 mg per Medical Staff approval MEDICATION WASTE Product Size: 1000 mg Product Wasted: ___ mg Vancomycin 2019-0 No 2001 mg: Me moria 6-10 infuse l 15:00: over 2.5 Vinnie 00 hours For adult patients only: Round to nearest 250 mg per Medical Staff approval MEDICATION WASTE Product Size: 1000 mg Product Wasted: ___ mg Vancomycin 2019-0 No 2001 mg: Me moria 6-10 infuse l 15:00: over 2.5 Lead 00 hours For adult patients only: Round to nearest 250 mg per Medical Staff approval MEDICATION WASTE Product Size: 1000 mg Product Wasted: ___ mg Vancomycin 2019-0 No 2001 mg: Me moria 6-10 infuse l 15:00: over 2.5 Vinnie 00 hours For adult patients only: Round to nearest 250 mg per Medical Staff approval MEDICATION WASTE Product Size: 1000 mg Product Wasted: ___ mg Vancomycin 2019-0 No 2001 mg: Me moria 6-10 infuse l 15:00: over 2.5 Lead 00 hours For adult patients only: Round to nearest 250 mg per Medical Staff approval MEDICATION WASTE Product Size: 1000 mg Product Wasted: ___ mg Vancomycin 2019-0 No 2001 mg: Me moria 6-10 infuse l 15:00: over 2.5 Lead 00 hours For adult patients only: Round to nearest 250 mg per Medical Staff approval MEDICATION WASTE Product Size: 1000 mg Product Wasted: ___ mg Vancomycin 2019-0 No 2001 mg: Me moria 6-10 infuse l 15:00: over 2.5 Lead 00 hours For adult patients only: Round to nearest 250 mg per Medical Staff approval MEDICATION WASTE Product Size: 1000 mg Product Wasted: ___ mg Vancomycin 2019-0 No 2001 mg: Me moria 6-10 infuse l 15:00: over 2.5 Lead 00 hours For adult patients only: Round to nearest 250 mg per Medical Staff approval MEDICATION WASTE Product Size: 1000 mg Product Wasted: ___ mg Vancomycin 2019-0 No 2001 mg: Me moria 6-10 infuse l 15:00: over 2.5 Vinnie 00 hours For adult patients only: Round to nearest 250 mg per Medical Staff approval MEDICATION WASTE Product Size: 1000 mg Product Wasted: ___ mg Vancomycin 2019-0 No 2000 mg: Me moria 6-10 infuse l 15:00: over 2.5 Lead 00 hours For adult patients only: Round to nearest 250 mg per Medical Staff approval MEDICATION WASTE Product Size: 1000 mg Product Wasted: ___ mg Vancomycin 2019-0 No 2000 mg: Me moria 6-10 infuse l 15:00: over 2.5 Lead 00 hours For adult patients only: Round to nearest 250 mg per Medical Staff approval MEDICATION WASTE Product Size: 1000 mg Product Wasted: ___ mg Vancomycin 2019-0 No 2000 mg: Me moria 6-10 infuse l 15:00: over 2.5 Vinnie 00 hours For adult patients only: Round to nearest 250 mg per Medical Staff approval MEDICATION WASTE Product Size: 1000 mg Product Wasted: ___ mg Vancomycin 2019-0 No 2000 mg: Me moria 6-10 infuse l 15:00: over 2.5 Lead 00 hours For adult patients only: Round to nearest 250 mg per Medical Staff approval MEDICATION WASTE Product Size: 1000 mg Product Wasted: ___ mg Vancomycin 2019-0 No 2000 mg: Me moria 6-10 infuse l 15:00: over 2.5 Lead 00 hours For adult patients only: Round to nearest 250 mg per Medical Staff approval MEDICATION WASTE Product Size: 1000 mg Product Wasted: ___ mg Vancomycin 2019-0 No 2000 mg: Me moria 6-10 infuse l 15:00: over 2.5 Lead 00 hours For adult patients only: Round to nearest 250 mg per Medical Staff approval MEDICATION WASTE Product Size: 1000 mg Product Wasted: ___ mg Vancomycin 2019-0 No 2001 mg: Me moria 6-10 infuse l 15:00: over 2.5 Lead 00 hours For adult patients only: Round to nearest 250 mg per Medical Staff approval MEDICATION WASTE Product Size: 1000 mg Product Wasted: ___ mg Vancomycin 2019-0 No 2001 mg: Me moria 6-10 infuse l 15:00: over 2.5 Lead 00 hours For adult patients only: Round to nearest 250 mg per Medical Staff approval MEDICATION WASTE Product Size: 1000 mg Product Wasted: ___ mg Lasix 0 No Notes: Memoria 6-10 (Same as: l 14:38: Lasix) Lead 00 MEDICATION WASTE Product Size: 40 mg Product Wasted: ___ mg Lasix No Notes: Memoria 6-10 (Same as: l 14:38: Lasix) Vinnie 00 MEDICATION WASTE Product Size: 40 mg Product Wasted: ___ mg Lasix 2018- No Notes: Memoria 6-10 (Same as: l 14:38: Lasix) Vinnie 00 MEDICATION WASTE Product Size: 40 mg Product Wasted: ___ mg Lasix No Notes: Memoria 6-10 (Same as: l 14:38: Lasix) Vinnie 00 MEDICATION WASTE Product Size: 40 mg Product Wasted: ___ mg Lasix No Notes: Memoria 6-10 (Same as: l 14:38: Lasix) Vinnie 00 MEDICATION WASTE Product Size: 40 mg Product Wasted: ___ mg Lasix 2018- No Notes: Memoria 6-10 (Same as: l 14:38: Lasix) Lead 00 MEDICATION WASTE Product Size: 40 mg Product Wasted: ___ mg Lasix 2018- No Notes: Memoria 6-10 (Same as: l 14:38: Lasix) Vinnie 00 MEDICATION WASTE Product Size: 40 mg Product Wasted: ___ mg Lasix 2019-0 No Notes: Memoria 6-10 (Same as: l 14:38: Lasix) Lead 00 MEDICATION WASTE Product Size: 40 mg Product Wasted: ___ mg Lasix 2018-0 No Notes: Memoria 6-10 (Same as: l 14:38: Lasix) Vinnie 00 MEDICATION WASTE Product Size: 40 mg Product Wasted: ___ mg Lasix 2019-0 No Notes: Memoria 6-10 (Same as: l 14:38: Lasix) Vinnie 00 MEDICATION WASTE Product Size: 40 mg Product Wasted: ___ mg Lasix 2019-0 No Notes: Memoria 6-10 (Same as: l 14:38: Lasix) Lead 00 MEDICATION WASTE Product Size: 40 mg Product Wasted: ___ mg Lasix 2019-0 No Notes: Memoria 6-10 (Same as: l 14:38: Lasix) Vinnie 00 MEDICATION WASTE Product Size: 40 mg Product Wasted: ___ mg Lasix 2019-0 No Notes: Memoria 6-10 (Same as: l 14:38: Lasix) Vinnie 00 MEDICATION WASTE Product Size: 40 mg Product Wasted: ___ mg Lasix 2018- No Notes: Memoria 6-10 (Same as: l 14:38: Lasix) Lead 00 MEDICATION WASTE Product Size: 40 mg Product Wasted: ___ mg Lasix 2018- No Notes: Memoria 6-10 (Same as: l 14:38: Lasix) Vinnie 00 MEDICATION WASTE Product Size: 40 mg Product Wasted: ___ mg Lasix 2018- No Notes: Memoria 6-10 (Same as: l 14:38: Lasix) Vinnie 00 MEDICATION WASTE Product Size: 40 mg Product Wasted: ___ mg Lasix 2019- No Notes: Memoria 6-10 (Same as: l 14:38: Lasix) Vinnie 00 MEDICATION WASTE Product Size: 40 mg Product Wasted: ___ mg Lasix 2019-0 No Notes: Memoria 6-10 (Same as: l 14:38: Lasix) Vinnie 00 MEDICATION WASTE Product Size: 40 mg Product Wasted: ___ mg Lasix 2019-0 No Notes: Memoria 6-10 (Same as: l 14:38: Lasix) Vinnie 00 MEDICATION WASTE Product Size: 40 mg Product Wasted: ___ mg Lasix 2019-0 No Notes: Memoria 6-10 (Same as: l 14:38: Lasix) Lead 00 MEDICATION WASTE Product Size: 40 mg Product Wasted: ___ mg Lasix 2019-0 No Notes: Memoria 6-10 (Same as: l 14:38: Lasix) Lead 00 MEDICATION WASTE Product Size: 40 mg Product Wasted: ___ mg Lasix 2018-0 No Notes: Memoria 6-10 (Same as: l 14:38: Lasix) Vinnie 00 MEDICATION WASTE Product Size: 40 mg Product Wasted: ___ mg Lasix 2018-0 No Notes: Memoria 6-10 (Same as: l 14:38: Lasix) Lead 00 MEDICATION WASTE Product Size: 40 mg Product Wasted: ___ mg Lasix 2018-0 No Notes: Memoria 6-10 (Same as: l 14:38: Lasix) Lead 00 MEDICATION WASTE Product Size: 40 mg Product Wasted: ___ mg Lasix 2018-0 No Notes: Memoria 6-10 (Same as: l 14:38: Lasix) Lead 00 MEDICATION WASTE Product Size: 40 mg Product Wasted: ___ mg Lasix 2018-0 No Notes: Memoria 6-10 (Same as: l 14:38: Lasix) Vinnie 00 MEDICATION WASTE Product Size: 40 mg Product Wasted: ___ mg Lasix 2018- No Notes: Memoria 6-10 (Same as: l 14:38: Lasix) Vinnie 00 MEDICATION WASTE Product Size: 40 mg Product Wasted: ___ mg phenylephri 2018-0 No Route: IV, Memoria ne (ANES) 6-10 Drug form: l 12:42: INJ, ONCE, Stop date: 02/22/19 7:42:00 CDT phenylephri 2018-0 No Route: IV, Memoria ne (ANES) 6-10 Drug form: l 12:42: INJ, ONCE, Stop date: 02/22/19 7:42:00 CDT phenylephri 2019-0 No Route: IV, Memoria ne (ANES) 6-10 Drug form: l 12:42: INJ, ONCE, Stop date: 02/22/19 7:42:00 CDT phenylephri 2019-0 No Route: IV, Memoria ne (ANES) 6-10 Drug form: l 12:42: INJ, ONCE, Stop date: 02/22/19 7:42:00 CDT phenylephri 2019-0 No Route: IV, Memoria ne (ANES) 6-10 Drug form: l 12:42: INJ, ONCE, Stop date: 02/22/19 7:42:00 CDT phenylephri 2019-0 No Route: IV, Memoria ne (ANES) 6-10 Drug form: l 12:42: INJ, ONCE, Stop date: 02/22/19 7:42:00 CDT phenylephri 2019-0 No Route: IV, Memoria ne (ANES) 6-10 Drug form: l 12:42: INJ, ONCE, Stop date: 02/22/19 7:42:00 CDT phenylephri 2019-0 No Route: IV, Memoria ne (ANES) 6-10 Drug form: l 12:42: INJ, ONCE, Stop date: 02/22/19 7:42:00 CDT phenylephri 2019-0 No Route: IV, Memoria ne (ANES) 6-10 Drug form: l 12:42: INJ, ONCE, Stop date: 02/22/19 7:42:00 CDT phenylephri 2019-0 No Route: IV, Memoria ne (ANES) 6-10 Drug form: l 12:42: INJ, ONCE, Stop date: 02/22/19 7:42:00 CDT phenylephri 2019-0 No Route: IV, Memoria ne (ANES) 6-10 Drug form: l 12:42: INJ, ONCE, Stop date: 02/22/19 7:42:00 CDT phenylephri 2019-0 No Route: IV, Memoria ne (ANES) 6-10 Drug form: l 12:42: INJ, ONCE, Stop date: 02/22/19 7:42:00 CDT phenylephri 2019-0 No Route: IV, Memoria ne (ANES) 6-10 Drug form: l 12:42: INJ, ONCE, Stop date: 02/22/19 7:42:00 CDT phenylephri 2019-0 No Route: IV, Memoria ne (ANES) 6-10 Drug form: l 12:42: INJ, ONCE, Stop date: 02/22/19 7:42:00 CDT phenylephri 2019-0 No Route: IV, Memoria ne (ANES) 6-10 Drug form: l 12:42: INJ, ONCE, Stop date: 02/22/19 7:42:00 CDT phenylephri 2019-0 No Route: IV, Memoria ne (ANES) 6-10 Drug form: l 12:42: INJ, ONCE, Stop date: 02/22/19 7:42:00 CDT phenylephri 2019-0 No Route: IV, Memoria ne (ANES) 6-10 Drug form: l 12:42: INJ, ONCE, Stop date: 02/22/19 7:42:00 CDT phenylephri 2019-0 No Route: IV, Memoria ne (ANES) 6-10 Drug form: l 12:42: INJ, ONCE, Stop date: 02/22/19 7:42:00 CDT phenylephri 2019-0 No Route: IV, Memoria ne (ANES) 6-10 Drug form: l 12:42: INJ, ONCE, Stop date: 02/22/19 7:42:00 CDT phenylephri 2019-0 No Route: IV, Memoria ne (ANES) 6-10 Drug form: l 12:42: INJ, ONCE, Stop date: 02/22/19 7:42:00 CDT phenylephri 2019-0 No Route: IV, Memoria ne (ANES) 6-10 Drug form: l 12:42: INJ, ONCE, Stop date: 02/22/19 7:42:00 CDT phenylephri 2019-0 No Route: IV, Memoria ne (ANES) 6-10 Drug form: l 12:42: INJ, ONCE, Stop date: 02/22/19 7:42:00 CDT phenylephri 2019-0 No Route: IV, Memoria ne (ANES) 6-10 Drug form: l 12:42: INJ, ONCE, Stop date: 02/22/19 7:42:00 CDT phenylephri 2019-0 No Route: IV, Memoria ne (ANES) 6-10 Drug form: l 12:42: INJ, ONCE, Stop date: 02/22/19 7:42:00 CDT phenylephri 2019-0 No Route: IV, Memoria ne (ANES) 6-10 Drug form: l 12:42: INJ, ONCE, Stop date: 02/22/19 7:42:00 CDT phenylephri 2019-0 No Route: IV, Memoria ne (ANES) 6-10 Drug form: l 12:42: INJ, ONCE, Stop date: 02/22/19 7:42:00 CDT phenylephri 2019-0 No Route: IV, Memoria ne (ANES) 6-10 Drug form: l 12:42: INJ, ONCE, Stop date: 02/22/19 7:42:00 CDT fentaNYL 2019-0 No Route: IV, Mem oria (ANES) 6-10 Drug form: l 12:38: INJ, ONCE, Stop date: 02/22/19 7:38:00 CDT fentaNYL 2019-0 No Route: IV, Mem oria (ANES) 6-10 Drug form: l 12:38: INJ, ONCE, Stop date: 02/22/19 7:38:00 CDT fentaNYL 2019-0 No Route: IV, Mem oria (ANES) 6-10 Drug form: l 12:38: INJ, ONCE, Stop date: 02/22/19 7:38:00 CDT fentaNYL 2019-0 No Route: IV, Mem oria (ANES) 6-10 Drug form: l 12:38: INJ, ONCE, Stop date: 02/22/19 7:38:00 CDT fentaNYL 2019-0 No Route: IV, Mem oria (ANES) 6-10 Drug form: l 12:38: INJ, ONCE, Stop date: 02/22/19 7:38:00 CDT fentaNYL 2019-0 No Route: IV, Mem oria (ANES) 6-10 Drug form: l 12:38: INJ, ONCE, Stop date: 02/22/19 7:38:00 CDT fentaNYL 2019-0 No Route: IV, Mem oria (ANES) 6-10 Drug form: l 12:38: INJ, ONCE, Stop date: 02/22/19 7:38:00 CDT fentaNYL 2019-0 No Route: IV, Mem oria (ANES) 6-10 Drug form: l 12:38: INJ, ONCE, Stop date: 02/22/19 7:38:00 CDT fentaNYL 2019-0 No Route: IV, Mem oria (ANES) 6-10 Drug form: l 12:38: INJ, ONCE, Stop date: 02/22/19 7:38:00 CDT fentaNYL 2019-0 No Route: IV, Mem oria (ANES) 6-10 Drug form: l 12:38: INJ, ONCE, Stop date: 02/22/19 7:38:00 CDT fentaNYL 2019-0 No Route: IV, Mem oria (ANES) 6-10 Drug form: l 12:38: INJ, ONCE, Stop date: 02/22/19 7:38:00 CDT fentaNYL 2019-0 No Route: IV, Mem oria (ANES) 6-10 Drug form: l 12:38: INJ, ONCE, Stop date: 02/22/19 7:38:00 CDT fentaNYL 2019-0 No Route: IV, Mem oria (ANES) 6-10 Drug form: l 12:38: INJ, ONCE, Stop date: 02/22/19 7:38:00 CDT fentaNYL 2019-0 No Route: IV, Mem oria (ANES) 6-10 Drug form: l 12:38: INJ, ONCE, Stop date: 02/22/19 7:38:00 CDT fentaNYL 2019-0 No Route: IV, Mem oria (ANES) 6-10 Drug form: l 12:38: INJ, ONCE, Stop date: 02/22/19 7:38:00 CDT fentaNYL 2019-0 No Route: IV, Mem oria (ANES) 6-10 Drug form: l 12:38: INJ, ONCE, Stop date: 02/22/19 7:38:00 CDT fentaNYL 2019-0 No Route: IV, Mem oria (ANES) 6-10 Drug form: l 12:38: INJ, ONCE, Stop date: 02/22/19 7:38:00 CDT fentaNYL 2019-0 No Route: IV, Mem oria (ANES) 6-10 Drug form: l 12:38: INJ, ONCE, Stop date: 02/22/19 7:38:00 CDT fentaNYL 2019-0 No Route: IV, Mem oria (ANES) 6-10 Drug form: l 12:38: INJ, ONCE, Stop date: 02/22/19 7:38:00 CDT fentaNYL 2019-0 No Route: IV, Mem oria (ANES) 6-10 Drug form: l 12:38: INJ, ONCE, Stop date: 02/22/19 7:38:00 CDT fentaNYL 2019-0 No Route: IV, Mem oria (ANES) 6-10 Drug form: l 12:38: INJ, ONCE, Stop date: 02/22/19 7:38:00 CDT fentaNYL 2019-0 No Route: IV, Mem oria (ANES) 6-10 Drug form: l 12:38: INJ, ONCE, Stop date: 02/22/19 7:38:00 CDT fentaNYL 2019-0 No Route: IV, Mem oria (ANES) 6-10 Drug form: l 12:38: INJ, ONCE, Stop date: 02/22/19 7:38:00 CDT fentaNYL 2019-0 No Route: IV, Mem oria (ANES) 6-10 Drug form: l 12:38: INJ, ONCE, Stop date: 02/22/19 7:38:00 CDT fentaNYL 2019-0 No Route: IV, Mem oria (ANES) 6-10 Drug form: l 12:38: INJ, ONCE, Stop date: 02/22/19 7:38:00 CDT fentaNYL 2019-0 No Route: IV, Mem oria (ANES) 6-10 Drug form: l 12:38: INJ, ONCE, Vinnie Stop date: 02/22/19 7:38:00 CDT fentaNYL 2018- No Route: IV, Mem oria (ANES) 6-10 Drug form: l 12:38: INJ, ONCE, Lead Stop date: 02/22/19 7:38:00 CDT 200 ML No Notes: Do Memori a Ciprofloxac 6-10 not l in 2 MG/ML 12:00: refrigerat H ermann Injection 00 e [Cipro] 200 ML No Notes: Do Memori a Ciprofloxac 6-10 not l in 2 MG/ML 12:00: refrigerat H ermann Injection 00 e [Cipro] 200 ML No Notes: Do Memori a Ciprofloxac 6-10 not l in 2 MG/ML 12:00: refrigerat H ermann Injection 00 e [Cipro] 200 ML No Notes: Do Memori a Ciprofloxac 6-10 not l in 2 MG/ML 12:00: refrigerat H ermann Injection 00 e [Cipro] 200 ML No Notes: Do Memori a Ciprofloxac 6-10 not l in 2 MG/ML 12:00: refrigerat H ermann Injection 00 e [Cipro] 200 ML No Notes: Do Memori a Ciprofloxac 6-10 not l in 2 MG/ML 12:00: refrigerat H ermann Injection 00 e [Cipro] 200 ML No Notes: Do Memori a Ciprofloxac 6-10 not l in 2 MG/ML 12:00: refrigerat H ermann Injection 00 e [Cipro] 200 ML No Notes: Do Memori a Ciprofloxac 6-10 not l in 2 MG/ML 12:00: refrigerat H ermann Injection 00 e [Cipro] 200 ML No Notes: Do Memori a Ciprofloxac 6-10 not l in 2 MG/ML 12:00: refrigerat H ermann Injection 00 e [Cipro] 200 ML No Notes: Do Memori a Ciprofloxac 6-10 not l in 2 MG/ML 12:00: refrigerat H ermann Injection 00 e [Cipro] 200 ML No Notes: Do Memori a Ciprofloxac 6-10 not l in 2 MG/ML 12:00: refrigerat H ermann Injection 00 e [Cipro] 200 ML No Notes: Do Memori a Ciprofloxac 6-10 not l in 2 MG/ML 12:00: refrigerat H ermann Injection 00 e [Cipro] 200 ML No Notes: Do Memori a Ciprofloxac 6-10 not l in 2 MG/ML 12:00: refrigerat H ermann Injection 00 e [Cipro] 200 ML No Notes: Do Memori a Ciprofloxac 6-10 not l in 2 MG/ML 12:00: refrigerat H ermann Injection 00 e [Cipro] 200 ML No Notes: Do Memori a Ciprofloxac 6-10 not l in 2 MG/ML 12:00: refrigerat H ermann Injection 00 e [Cipro] 200 ML No Notes: Do Memori a Ciprofloxac 6-10 not l in 2 MG/ML 12:00: refrigerat H ermann Injection 00 e [Cipro] 200 ML No Notes: Do Memori a Ciprofloxac 6-10 not l in 2 MG/ML 12:00: refrigerat H ermann Injection 00 e [Cipro] 200 ML No Notes: Do Memori a Ciprofloxac 6-10 not l in 2 MG/ML 12:00: refrigerat H ermann Injection 00 e [Cipro] 200 ML No Notes: Do Memori a Ciprofloxac 6-10 not l in 2 MG/ML 12:00: refrigerat H ermann Injection 00 e [Cipro] 200 ML No Notes: Do Memori a Ciprofloxac 6-10 not l in 2 MG/ML 12:00: refrigerat H ermann Injection 00 e [Cipro] 200 ML No Notes: Do Memori a Ciprofloxac 6-10 not l in 2 MG/ML 12:00: refrigerat H ermann Injection 00 e [Cipro] 200 ML No Notes: Do Memori a Ciprofloxac 6-10 not l in 2 MG/ML 12:00: refrigerat H ermann Injection 00 e [Cipro] 200 ML No Notes: Do Memori a Ciprofloxac 6-10 not l in 2 MG/ML 12:00: refrigerat H ermann Injection 00 e [Cipro] 200 ML No Notes: Do Memori a Ciprofloxac 6-10 not l in 2 MG/ML 12:00: refrigerat H ermann Injection 00 e [Cipro] 200 ML No Notes: Do Memori a Ciprofloxac 6-10 not l in 2 MG/ML 12:00: refrigerat H ermann Injection 00 e [Cipro] 200 ML No Notes: Do Memori a Ciprofloxac 6-10 not l in 2 MG/ML 12:00: refrigerat H ermann Injection 00 e [Cipro] 200 ML No Notes: Do Memori a Ciprofloxac 6-10 not l in 2 MG/ML 12:00: refrigerat H ermann Injection 00 e [Cipro] Sodium No Route: IV, Memor ia Chloride 6-10 Total l 0.9% IV 11:49: Volume: Lead (ANES) 1000 00 1,000, mL Start date: 02/22/19 6:49:00 CDT, Stop date: 02/22/19 7:49:00 CDT norepinephr No Route: IV, Memoria ine (ANES) 6-10 Drug form: l 16 11:49: INJ, Start Vinnie microgram date: 02/22/19 6:49:00 CDT, Stop date: 02/22/19 7:49:00 CDT Sodium No Route: IV, Memor ia Chloride 6-10 Total l 0.9% IV 11:49: Volume: Vinnie (ANES) 1000 00 1,000, mL Start date: 02/22/19 6:49:00 CDT, Stop date: 02/22/19 7:49:00 CDT norepinephr No Route: IV, Memoria ine (ANES) 6-10 Drug form: l 16 11:49: INJ, Start Vinnie microgram date: 02/22/19 6:49:00 CDT, Stop date: 02/22/19 7:49:00 CDT Sodium 2019-0 No Route: IV, Memor ia Chloride 6-10 Total l 0.9% IV 11:49: Volume: Lead (ANES) 1000 00 1,000, mL Start date: 02/22/19 6:49:00 CDT, Stop date: 02/22/19 7:49:00 CDT norepinephr 2019-0 No Route: IV, Memoria ine (ANES) 6-10 Drug form: l 16 11:49: INJ, Start Vinnie microgram 00 date: 02/22/19 6:49:00 CDT, Stop date: 02/22/19 7:49:00 CDT Sodium 2019-0 No Route: IV, Memor ia Chloride 6-10 Total l 0.9% IV 11:49: Volume: Lead (ANES) 1000 00 1,000, mL Start date: 02/22/19 6:49:00 CDT, Stop date: 02/22/19 7:49:00 CDT norepinephr 2019-0 No Route: IV, Memoria ine (ANES) 6-10 Drug form: l 16 11:49: INJ, Start Vinnie microgram 00 date: 02/22/19 6:49:00 CDT, Stop date: 02/22/19 7:49:00 CDT Sodium 2019-0 No Route: IV, Memor ia Chloride 6-10 Total l 0.9% IV 11:49: Volume: Vinnie (ANES) 1000 00 1,000, mL Start date: 02/22/19 6:49:00 CDT, Stop date: 02/22/19 7:49:00 CDT norepinephr 2019-0 No Route: IV, Memoria ine (ANES) 6-10 Drug form: l 16 11:49: INJ, Start Vinnie microgram 00 date: 02/22/19 6:49:00 CDT, Stop date: 02/22/19 7:49:00 CDT Sodium 2019-0 No Route: IV, Memor ia Chloride 6-10 Total l 0.9% IV 11:49: Volume: Vinnie (ANES) 1000 00 1,000, mL Start date: 02/22/19 6:49:00 CDT, Stop date: 02/22/19 7:49:00 CDT norepinephr 2019-0 No Route: IV, Memoria ine (ANES) 6-10 Drug form: l 16 11:49: INJ, Start Vinnie microgram 00 date: 02/22/19 6:49:00 CDT, Stop date: 02/22/19 7:49:00 CDT Sodium 2019-0 No Route: IV, Memor ia Chloride 6-10 Total l 0.9% IV 11:49: Volume: Vinnie (ANES) 1000 00 1,000, mL Start date: 02/22/19 6:49:00 CDT, Stop date: 02/22/19 7:49:00 CDT norepinephr 2019-0 No Route: IV, Memoria ine (ANES) 6-10 Drug form: l 16 11:49: INJ, Start Lead microgram date: 02/22/19 6:49:00 CDT, Stop date: 02/22/19 7:49:00 CDT Sodium 2019-0 No Route: IV, Memor ia Chloride 6-10 Total l 0.9% IV 11:49: Volume: Lead (ANES) 1000 00 1,000, mL Start date: 02/22/19 6:49:00 CDT, Stop date: 02/22/19 7:49:00 CDT norepinephr 2019-0 No Route: IV, Memoria ine (ANES) 6-10 Drug form: l 16 11:49: INJ, Start Vinnie microgram date: 02/22/19 6:49:00 CDT, Stop date: 02/22/19 7:49:00 CDT Sodium 2019-0 No Route: IV, Memor ia Chloride 6-10 Total l 0.9% IV 11:49: Volume: Vinnie (ANES) 1000 00 1,000, mL Start date: 02/22/19 6:49:00 CDT, Stop date: 02/22/19 7:49:00 CDT norepinephr 2019-0 No Route: IV, Memoria ine (ANES) 6-10 Drug form: l 16 11:49: INJ, Start Lead microgram date: 02/22/19 6:49:00 CDT, Stop date: 02/22/19 7:49:00 CDT Sodium 2019-0 No Route: IV, Memor ia Chloride 6-10 Total l 0.9% IV 11:49: Volume: Vinnie (ANES) 1000 00 1,000, mL Start date: 02/22/19 6:49:00 CDT, Stop date: 02/22/19 7:49:00 CDT norepinephr 2019-0 No Route: IV, Memoria ine (ANES) 6-10 Drug form: l 16 11:49: INJ, Start Lead microgram 00 date: 02/22/19 6:49:00 CDT, Stop date: 02/22/19 7:49:00 CDT Sodium 2019-0 No Route: IV, Memor ia Chloride 6-10 Total l 0.9% IV 11:49: Volume: Vinnie (ANES) 1000 00 1,000, mL Start date: 02/22/19 6:49:00 CDT, Stop date: 02/22/19 7:49:00 CDT norepinephr 2018-0 No Route: IV, Memoria ine (ANES) 6-10 Drug form: l 16 11:49: INJ, Start Lead microgram 00 date: 02/22/19 6:49:00 CDT, Stop date: 02/22/19 7:49:00 CDT Sodium 2019-0 No Route: IV, Memor ia Chloride 6-10 Total l 0.9% IV 11:49: Volume: Vinnie (ANES) 1000 00 1,000, mL Start date: 02/22/19 6:49:00 CDT, Stop date: 02/22/19 7:49:00 CDT norepinephr 2019-0 No Route: IV, Memoria ine (ANES) 6-10 Drug form: l 16 11:49: INJ, Start Lead microgram 00 date: 02/22/19 6:49:00 CDT, Stop date: 02/22/19 7:49:00 CDT Sodium 2019-0 No Route: IV, Memor ia Chloride 6-10 Total l 0.9% IV 11:49: Volume: Lead (ANES) 1000 00 1,000, mL Start date: 02/22/19 6:49:00 CDT, Stop date: 02/22/19 7:49:00 CDT norepinephr 2019-0 No Route: IV, Memoria ine (ANES) 6-10 Drug form: l 16 11:49: INJ, Start Vinnie microgram date: 02/22/19 6:49:00 CDT, Stop date: 02/22/19 7:49:00 CDT Sodium 2018-0 No Route: IV, Memor ia Chloride 6-10 Total l 0.9% IV 11:49: Volume: Lead (ANES) 1000 00 1,000, mL Start date: 02/22/19 6:49:00 CDT, Stop date: 02/22/19 7:49:00 CDT norepinephr 0 No Route: IV, Memoria ine (ANES) 6-10 Drug form: l 16 11:49: INJ, Start Vinnie microgram date: 02/22/19 6:49:00 CDT, Stop date: 02/22/19 7:49:00 CDT Sodium 2018-0 No Route: IV, Memor ia Chloride 6-10 Total l 0.9% IV 11:49: Volume: Lead (ANES) 1000 00 1,000, mL Start date: 02/22/19 6:49:00 CDT, Stop date: 02/22/19 7:49:00 CDT norepinephr 0 No Route: IV, Memoria ine (ANES) 6-10 Drug form: l 16 11:49: INJ, Start Lead microgram date: 02/22/19 6:49:00 CDT, Stop date: 02/22/19 7:49:00 CDT Sodium 2018-0 No Route: IV, Memor ia Chloride 6-10 Total l 0.9% IV 11:49: Volume: Vinnie (ANES) 1000 00 1,000, mL Start date: 02/22/19 6:49:00 CDT, Stop date: 02/22/19 7:49:00 CDT norepinephr 2019-0 No Route: IV, Memoria ine (ANES) 6-10 Drug form: l 16 11:49: INJ, Start Lead microgram date: 02/22/19 6:49:00 CDT, Stop date: 02/22/19 7:49:00 CDT Sodium 2018-0 No Route: IV, Memor ia Chloride 6-10 Total l 0.9% IV 11:49: Volume: Vinnie (ANES) 1000 00 1,000, mL Start date: 02/22/19 6:49:00 CDT, Stop date: 02/22/19 7:49:00 CDT norepinephr 2019-0 No Route: IV, Memoria ine (ANES) 6-10 Drug form: l 16 11:49: INJ, Start Vinnie microgram date: 02/22/19 6:49:00 CDT, Stop date: 02/22/19 7:49:00 CDT Sodium 2019-0 No Route: IV, Memor ia Chloride 6-10 Total l 0.9% IV 11:49: Volume: Vinnie (ANES) 1000 00 1,000, mL Start date: 02/22/19 6:49:00 CDT, Stop date: 02/22/19 7:49:00 CDT norepinephr 2019-0 No Route: IV, Memoria ine (ANES) 6-10 Drug form: l 16 11:49: INJ, Start Lead microgram date: 02/22/19 6:49:00 CDT, Stop date: 02/22/19 7:49:00 CDT Sodium 2019-0 No Route: IV, Memor ia Chloride 6-10 Total l 0.9% IV 11:49: Volume: Lead (ANES) 1000 00 1,000, mL Start date: 02/22/19 6:49:00 CDT, Stop date: 02/22/19 7:49:00 CDT norepinephr 2019-0 No Route: IV, Memoria ine (ANES) 6-10 Drug form: l 16 11:49: INJ, Start Lead microgram date: 02/22/19 6:49:00 CDT, Stop date: 02/22/19 7:49:00 CDT Sodium 2019-0 No Route: IV, Memor ia Chloride 6-10 Total l 0.9% IV 11:49: Volume: Lead (ANES) 1000 00 1,000, mL Start date: 02/22/19 6:49:00 CDT, Stop date: 02/22/19 7:49:00 CDT norepinephr 2019-0 No Route: IV, Memoria ine (ANES) 6-10 Drug form: l 16 11:49: INJ, Start Vinnie microgram 00 date: 02/22/19 6:49:00 CDT, Stop date: 02/22/19 7:49:00 CDT Sodium 2019-0 No Route: IV, Memor ia Chloride 6-10 Total l 0.9% IV 11:49: Volume: Vinnie (ANES) 1000 00 1,000, mL Start date: 02/22/19 6:49:00 CDT, Stop date: 02/22/19 7:49:00 CDT norepinephr 2019-0 No Route: IV, Memoria ine (ANES) 6-10 Drug form: l 16 11:49: INJ, Start Vinnie microgram date: 02/22/19 6:49:00 CDT, Stop date: 02/22/19 7:49:00 CDT Sodium 2019-0 No Route: IV, Memor ia Chloride 6-10 Total l 0.9% IV 11:49: Volume: Vinnie (ANES) 1000 00 1,000, mL Start date: 02/22/19 6:49:00 CDT, Stop date: 02/22/19 7:49:00 CDT norepinephr 2019-0 No Route: IV, Memoria ine (ANES) 6-10 Drug form: l 16 11:49: INJ, Start Lead microgram date: 02/22/19 6:49:00 CDT, Stop date: 02/22/19 7:49:00 CDT Sodium 2019-0 No Route: IV, Memor ia Chloride 6-10 Total l 0.9% IV 11:49: Volume: Vinnie (ANES) 1000 00 1,000, mL Start date: 02/22/19 6:49:00 CDT, Stop date: 02/22/19 7:49:00 CDT norepinephr 2019-0 No Route: IV, Memoria ine (ANES) 6-10 Drug form: l 16 11:49: INJ, Start Lead microgram 00 date: 02/22/19 6:49:00 CDT, Stop date: 02/22/19 7:49:00 CDT Sodium 2019-0 No Route: IV, Memor ia Chloride 6-10 Total l 0.9% IV 11:49: Volume: Lead (ANES) 1000 00 1,000, mL Start date: 02/22/19 6:49:00 CDT, Stop date: 02/22/19 7:49:00 CDT norepinephr 2019-0 No Route: IV, Memoria ine (ANES) 6-10 Drug form: l 16 11:49: INJ, Start Vinnie microgram 00 date: 02/22/19 6:49:00 CDT, Stop date: 02/22/19 7:49:00 CDT Sodium 2019-0 No Route: IV, Memor ia Chloride 6-10 Total l 0.9% IV 11:49: Volume: Lead (ANES) 1000 1,000, mL Start date: 02/22/19 6:49:00 CDT, Stop date: 02/22/19 7:49:00 CDT norepinephr 2019-0 No Route: IV, Memoria ine (ANES) 6-10 Drug form: l 16 11:49: INJ, Start Vinnie microgram date: 02/22/19 6:49:00 CDT, Stop date: 02/22/19 7:49:00 CDT Sodium 2019-0 No Route: IV, Memor ia Chloride 6-10 Total l 0.9% IV 11:49: Volume: Vinnie (ANES) 1000 00 1,000, mL Start date: 02/22/19 6:49:00 CDT, Stop date: 02/22/19 7:49:00 CDT norepinephr 2019-0 No Route: IV, Memoria ine (ANES) 6-10 Drug form: l 16 11:49: INJ, Start Vinnie microgram date: 02/22/19 6:49:00 CDT, Stop date: 02/22/19 7:49:00 CDT Sodium 2019-0 No Route: IV, Memor ia Chloride 6-10 Total l 0.9% IV 11:49: Volume: Vinnie (ANES) 1000 1,000, mL Start date: 02/22/19 6:49:00 CDT, Stop date: 02/22/19 7:49:00 CDT [email or web address] 2019-0 No Route: IV, Memoria ine (ANES) 6-10 Drug form: l 16 11:49: INJ, Start Lead microgram date: 02/22/19 6:49:00 CDT, Stop date: 02/22/19 7:49:00 CDT Thyroxine No Notes: Memori a 6-10 Take 1 l 11:30: hour Vinnie 00 before or 2 hours after meal; Enteral feeds may interefere with the absorption of this medication .(Same as:Levothr oid) Thyroxine No Notes: Memori a 6-10 Take 1 l 11:30: hour Lead 00 before or 2 hours after meal; Enteral feeds may interefere with the absorption of this medication .(Same as:Levothr oid) Thyroxine No Notes: Memori a 6-10 Take 1 l 11:30: hour Lead 00 before or 2 hours after meal; Enteral feeds may interefere with the absorption of this medication .(Same as:Levothr oid) Thyroxine No Notes: Memori a 6-10 Take 1 l 11:30: hour Vinnie 00 before or 2 hours after meal; Enteral feeds may interefere with the absorption of this medication .(Same as:Levothr oid) Thyroxine No Notes: Memori a 6-10 Take 1 l 11:30: hour Vinnie 00 before or 2 hours after meal; Enteral feeds may interefere with the absorption of this medication .(Same as:Levothr oid) Thyroxine No Notes: Memori a 6-10 Take 1 l 11:30: hour Vinnie 00 before or 2 hours after meal; Enteral feeds may interefere with the absorption of this medication .(Same as:Levothr oid) Thyroxine No Notes: Memori a 6-10 Take 1 l 11:30: hour Vinnie 00 before or 2 hours after meal; Enteral feeds may interefere with the absorption of this medication .(Same as:Levothr oid) Thyroxine No Notes: Memori a 6-10 Take 1 l 11:30: hour Vinnie 00 before or 2 hours after meal; Enteral feeds may interefere with the absorption of this medication .(Same as:Levothr oid) Thyroxine No Notes: Memori a 6-10 Take 1 l 11:30: hour Lead 00 before or 2 hours after meal; Enteral feeds may interefere with the absorption of this medication .(Same as:Levothr oid) Thyroxine No Notes: Memori a 6-10 Take 1 l 11:30: hour Lead 00 before or 2 hours after meal; Enteral feeds may interefere with the absorption of this medication .(Same as:Levothr oid) Thyroxine No Notes: Memori a 6-10 Take 1 l 11:30: hour Lead 00 before or 2 hours after meal; Enteral feeds may interefere with the absorption of this medication .(Same as:Levothr oid) Thyroxine No Notes: Memori a 6-10 Take 1 l 11:30: hour Vinnie 00 before or 2 hours after meal; Enteral feeds may interefere with the absorption of this medication .(Same as:Levothr oid) Thyroxine No Notes: Memori a 6-10 Take 1 l 11:30: hour Lead 00 before or 2 hours after meal; Enteral feeds may interefere with the absorption of this medication .(Same as:Levothr oid) Thyroxine No Notes: Memori a 6-10 Take 1 l 11:30: hour Lead 00 before or 2 hours after meal; Enteral feeds may interefere with the absorption of this medication .(Same as:Levothr oid) Thyroxine No Notes: Memori a 6-10 Take 1 l 11:30: hour Lead 00 before or 2 hours after meal; Enteral feeds may interefere with the absorption of this medication .(Same as:Levothr oid) Thyroxine No Notes: Memori a 6-10 Take 1 l 11:30: hour Lead 00 before or 2 hours after meal; Enteral feeds may interefere with the absorption of this medication .(Same as:Levothr oid) Thyroxine No Notes: Memori a 6-10 Take 1 l 11:30: hour Lead 00 before or 2 hours after meal; Enteral feeds may interefere with the absorption of this medication .(Same as:Levothr oid) Thyroxine No Notes: Memori a 6-10 Take 1 l 11:30: hour Vinnie 00 before or 2 hours after meal; Enteral feeds may interefere with the absorption of this medication .(Same as:Levothr oid) Thyroxine No Notes: Memori a 6-10 Take 1 l 11:30: hour Lead 00 before or 2 hours after meal; Enteral feeds may interefere with the absorption of this medication .(Same as:Levothr oid) Thyroxine No Notes: Memori a 6-10 Take 1 l 11:30: hour Lead 00 before or 2 hours after meal; Enteral feeds may interefere with the absorption of this medication .(Same as:Levothr oid) Thyroxine No Notes: Memori a 6-10 Take 1 l 11:30: hour Vinnie 00 before or 2 hours after meal; Enteral feeds may interefere with the absorption of this medication .(Same as:Levothr oid) Thyroxine No Notes: Memori a 6-10 Take 1 l 11:30: hour Vinnie 00 before or 2 hours after meal; Enteral feeds may interefere with the absorption of this medication .(Same as:Levothr oid) Thyroxine No Notes: Memori a 6-10 Take 1 l 11:30: hour Lead 00 before or 2 hours after meal; Enteral feeds may interefere with the absorption of this medication .(Same as:Levothr oid) Thyroxine No Notes: Memori a 6-10 Take 1 l 11:30: hour Vinnie 00 before or 2 hours after meal; Enteral feeds may interefere with the absorption of this medication .(Same as:Levothr oid) Thyroxine No Notes: Memori a 6-10 Take 1 l 11:30: hour Lead 00 before or 2 hours after meal; Enteral feeds may interefere with the absorption of this medication .(Same as:Levothr oid) Thyroxine No Notes: Memori a 6-10 Take 1 l 11:30: hour Vinnie 00 before or 2 hours after meal; Enteral feeds may interefere with the absorption of this medication .(Same as:Levothr oid) Thyroxine No Notes: Memori a 6-10 Take 1 l 11:30: hour Vinnie 00 before or 2 hours after meal; Enteral feeds may interefere with the absorption of this medication .(Same as:Levothr oid) Artificial No Notes: Memor ia Tears 6-10 (Same as: l 06:00: Lacri-Lube Vinnie 00 , Puralube, Duratears Naturale, Artificial Tears, and Tears Again ) Artificial 2019-0 No Notes: Memor ia Tears 6-10 (Same as: l 06:00: Lacri-Lube Lead 00 , Puralube, Duratears Naturale, Artificial Tears, and Tears Again ) Artificial 2019-0 No Notes: Memor ia Tears 6-10 (Same as: l 06:00: Lacri-Lube Lead 00 , Puralube, Duratears Naturale, Artificial Tears, and Tears Again ) Artificial 20190 No Notes: Memor ia Tears 6-10 (Same as: l 06:00: Lacri-Lube Lead 00 , Puralube, Duratears Naturale, Artificial Tears, and Tears Again ) Artificial 20190 No Notes: Memor ia Tears 6-10 (Same as: l 06:00: Lacri-Lube Vinnie 00 , Puralube, Duratears Naturale, Artificial Tears, and Tears Again ) Artificial 2019-0 No Notes: Memor ia Tears 6-10 (Same as: l 06:00: Lacri-Lube Vinnie 00 , Puralube, Duratears Naturale, Artificial Tears, and Tears Again ) Artificial 20190 No Notes: Memor ia Tears 6-10 (Same as: l 06:00: Lacri-Lube Lead 00 , Puralube, Duratears Naturale, Artificial Tears, and Tears Again ) Artificial 20190 No Notes: Memor ia Tears 6-10 (Same as: l 06:00: Lacri-Lube Lead 00 , Puralube, Duratears Naturale, Artificial Tears, and Tears Again ) Artificial 20190 No Notes: Memor ia Tears 6-10 (Same as: l 06:00: Lacri-Lube Vinnie 00 , Puralube, Duratears Naturale, Artificial Tears, and Tears Again ) Artificial 2019-0 No Notes: Memor ia Tears 6-10 (Same as: l 06:00: Lacri-Lube Lead 00 , Puralube, Duratears Naturale, Artificial Tears, and Tears Again ) Artificial 2019-0 No Notes: Memor ia Tears 6-10 (Same as: l 06:00: Lacri-Lube Vinnie 00 , Puralube, Duratears Naturale, Artificial Tears, and Tears Again ) Artificial 2019-0 No Notes: Memor ia Tears 6-10 (Same as: l 06:00: Lacri-Lube Lead 00 , Puralube, Duratears Naturale, Artificial Tears, and Tears Again ) Artificial 2019-0 No Notes: Memor ia Tears 6-10 (Same as: l 06:00: Lacri-Lube Vinnie 00 , Puralube, Duratears Naturale, Artificial Tears, and Tears Again ) Artificial 2019-0 No Notes: Memor ia Tears 6-10 (Same as: l 06:00: Lacri-Lube Vinnie 00 , Puralube, Duratears Naturale, Artificial Tears, and Tears Again ) Artificial 2019-0 No Notes: Memor ia Tears 6-10 (Same as: l 06:00: Lacri-Lube Vinnie 00 , Puralube, Duratears Naturale, Artificial Tears, and Tears Again ) Artificial 2019-0 No Notes: Memor ia Tears 6-10 (Same as: l 06:00: Lacri-Lube Vinnie 00 , Puralube, Duratears Naturale, Artificial Tears, and Tears Again ) Artificial 2019-0 No Notes: Memor ia Tears 6-10 (Same as: l 06:00: Lacri-Lube Lead 00 , Puralube, Duratears Naturale, Artificial Tears, and Tears Again ) Artificial 20190 No Notes: Memor ia Tears 6-10 (Same as: l 06:00: Lacri-Lube Lead 00 , Puralube, Duratears Naturale, Artificial Tears, and Tears Again ) Artificial 2019-0 No Notes: Memor ia Tears 6-10 (Same as: l 06:00: Lacri-Lube Lead 00 , Puralube, Duratears Naturale, Artificial Tears, and Tears Again ) Artificial 2019-0 No Notes: Memor ia Tears 6-10 (Same as: l 06:00: Lacri-Lube Vinnie 00 , Puralube, Duratears Naturale, Artificial Tears, and Tears Again ) Artificial 2019-0 No Notes: Memor ia Tears 6-10 (Same as: l 06:00: Lacri-Lube Lead 00 , Puralube, Duratears Naturale, Artificial Tears, and Tears Again ) Artificial 2019-0 No Notes: Memor ia Tears 6-10 (Same as: l 06:00: Lacri-Lube Vinnie 00 , Puralube, Duratears Naturale, Artificial Tears, and Tears Again ) Artificial 2019-0 No Notes: Memor ia Tears 6-10 (Same as: l 06:00: Lacri-Lube Vinnie 00 , Puralube, Duratears Naturale, Artificial Tears, and Tears Again ) Artificial 2019-0 No Notes: Memor ia Tears 6-10 (Same as: l 06:00: Lacri-Lube Vinnie 00 , Puralube, Duratears Naturale, Artificial Tears, and Tears Again ) Artificial 2019-0 No Notes: Memor ia Tears 6-10 (Same as: l 06:00: Lacri-Lube Lead 00 , Puralube, Duratears Naturale, Artificial Tears, and Tears Again ) Artificial 2019-0 No Notes: Memor ia Tears 6-10 (Same as: l 06:00: Lacri-Lube Lead 00 , Puralube, Duratears Naturale, Artificial Tears, and Tears Again ) Artificial 2019-0 No Notes: Memor ia Tears 6-10 (Same as: l 06:00: Lacri-Lube Lead 00 , Puralube, Duratears Naturale, Artificial Tears, and Tears Again ) Artificial 2019-0 No Notes: Memor ia Tears 6-10 (Same as: l 05:26: Lacri-Lube Vinnie 00 , Puralube, Duratears Naturale, Artificial Tears, and Tears Again ) Artificial 2019-0 No Notes: Memor ia Tears 6-10 (Same as: l 05:26: Lacri-Lube Lead 00 , Puralube, Duratears Naturale, Artificial Tears, and Tears Again ) Artificial 2019-0 No Notes: Memor ia Tears 6-10 (Same as: l 05:26: Lacri-Lube Lead 00 , Puralube, Duratears Naturale, Artificial Tears, and Tears Again ) Artificial 2019-0 No Notes: Memor ia Tears 6-10 (Same as: l 05:26: Lacri-Lube Vinnie 00 , Puralube, Duratears Naturale, Artificial Tears, and Tears Again ) Artificial 2019-0 No Notes: Memor ia Tears 6-10 (Same as: l 05:26: Lacri-Lube Lead 00 , Puralube, Duratears Naturale, Artificial Tears, and Tears Again ) Artificial 2019-0 No Notes: Memor ia Tears 6-10 (Same as: l 05:: Lacri-Lube Vinnie 00 , Puralube, Duratears Naturale, Artificial Tears, and Tears Again ) Artificial 2019-0 No Notes: Memor ia Tears 6-10 (Same as: l 05:: Lacri-Lube Vinnie 00 , Puralube, Duratears Naturale, Artificial Tears, and Tears Again ) Artificial 2019-0 No Notes: Memor ia Tears 6-10 (Same as: l 05:: Lacri-Lube Lead 00 , Puralube, Duratears Naturale, Artificial Tears, and Tears Again ) Artificial 2019-0 No Notes: Memor ia Tears 6-10 (Same as: l 05:: Lacri-Lube Lead 00 , Puralube, Duratears Naturale, Artificial Tears, and Tears Again ) Artificial 2019-0 No Notes: Memor ia Tears 6-10 (Same as: l 05:: Lacri-Lube Lead 00 , Puralube, Duratears Naturale, Artificial Tears, and Tears Again ) Artificial 2019-0 No Notes: Memor ia Tears 6-10 (Same as: l 05:: Lacri-Lube Vinnie 00 , Puralube, Duratears Naturale, Artificial Tears, and Tears Again ) Artificial 2019-0 No Notes: Memor ia Tears 6-10 (Same as: l 05:: Lacri-Lube Vinnie 00 , Puralube, Duratears Naturale, Artificial Tears, and Tears Again ) Artificial 2019-0 No Notes: Memor ia Tears 6-10 (Same as: l 05:: Lacri-Lube Lead 00 , Puralube, Duratears Naturale, Artificial Tears, and Tears Again ) Artificial 2019-0 No Notes: Memor ia Tears 6-10 (Same as: l 05:: Lacri-Lube Lead 00 , Puralube, Duratears Naturale, Artificial Tears, and Tears Again ) Artificial 2019-0 No Notes: Memor ia Tears 6-10 (Same as: l 05:: Lacri-Lube Vinnie 00 , Puralube, Duratears Naturale, Artificial Tears, and Tears Again ) Artificial 2019-0 No Notes: Memor ia Tears 6-10 (Same as: l 05:: Lacri-Lube Lead 00 , Puralube, Duratears Naturale, Artificial Tears, and Tears Again ) Artificial 2019-0 No Notes: Memor ia Tears 6-10 (Same as: l 05:: Lacri-Lube Vinnie 00 , Puralube, Duratears Naturale, Artificial Tears, and Tears Again ) Artificial 2019-0 No Notes: Memor ia Tears 6-10 (Same as: l 05:: Lacri-Lube Vinnie 00 , Puralube, Duratears Naturale, Artificial Tears, and Tears Again ) Artificial 2019-0 No Notes: Memor ia Tears 6-10 (Same as: l 05:: Lacri-Lube Lead 00 , Puralube, Duratears Naturale, Artificial Tears, and Tears Again ) Artificial 2019-0 No Notes: Memor ia Tears 6-10 (Same as: l 05:: Lacri-Lube Lead 00 , Puralube, Duratears Naturale, Artificial Tears, and Tears Again ) Artificial 2019-0 No Notes: Memor ia Tears 6-10 (Same as: l 05:: Lacri-Lube Vinnie 00 , Puralube, Duratears Naturale, Artificial Tears, and Tears Again ) Artificial 2019-0 No Notes: Memor ia Tears 6-10 (Same as: l 05:: Lacri-Lube Lead 00 , Puralube, Duratears Naturale, Artificial Tears, and Tears Again ) Artificial 2019-0 No Notes: Memor ia Tears 6-10 (Same as: l 05:: Lacri-Lube Lead 00 , Puralube, Duratears Naturale, Artificial Tears, and Tears Again ) Artificial 2019-0 No Notes: Memor ia Tears 6-10 (Same as: l 05:: Lacri-Lube Vinnie 00 , Puralube, Duratears Naturale, Artificial Tears, and Tears Again ) Artificial 2019-0 No Notes: Memor ia Tears 6-10 (Same as: l 05:: Lacri-Lube Vinnie 00 , Puralube, Duratears Naturale, Artificial Tears, and Tears Again ) Artificial No Notes: Memor ia Tears 6-10 (Same as: l 05:26: Lacri-Lube Vinnie 00 , Puralube, Duratears Naturale, Artificial Tears, and Tears Again ) Artificial No Notes: Memor ia Tears 6-10 (Same as: l 05:26: Lacri-Lube Lead 00 , Puralube, Duratears Naturale, Artificial Tears, and Tears Again ) atorvastati No Notes: Semaj shashi n 6-10 (Same As: l 02:00: Lipitor) Lead 00 atorvastati No Notes: Semaj shashi n 6-10 (Same As: l 02:00: Lipitor) Vinnie 00 atorvastati No Notes: Semaj shashi n 6-10 (Same As: l 02:00: Lipitor) Vinnie 00 atorvastati No Notes: Semaj shashi n 6-10 (Same As: l 02:00: Lipitor) Vinnie 00 atorvastati No Notes: Semaj shashi n 6-10 (Same As: l 02:00: Lipitor) Lead 00 atorvastati No Notes: Semaj shashi n 6-10 (Same As: l 02:00: Lipitor) Vinnie 00 atorvastati No Notes: Semaj shashi n 6-10 (Same As: l 02:00: Lipitor) Lead 00 atorvastati No Notes: Semaj shashi n 6-10 (Same As: l 02:00: Lipitor) Vinnie 00 atorvastati No Notes: Semaj shashi n 6-10 (Same As: l 02:00: Lipitor) Lead 00 atorvastati No Notes: Semaj shashi n 6-10 (Same As: l 02:00: Lipitor) Vinnie 00 atorvastati No Notes: Semaj shahsi n 6-10 (Same As: l 02:00: Lipitor) Vinnie 00 atorvastati No Notes: Semaj shashi n 6-10 (Same As: l 02:00: Lipitor) Lead 00 atorvastati No Notes: Semaj shashi n 6-10 (Same As: l 02:00: Lipitor) atorvastati No Notes: Semaj shashi n 6-10 (Same As: l 02:00: Lipitor) Lead 00 atorvastati No Notes: Semaj shashi n 6-10 (Same As: l 02:00: Lipitor) atorvastati No Notes: Semaj shashi n 6-10 (Same As: l 02:00: Lipitor) atorvastati No Notes: Semaj shashi n 6-10 (Same As: l 02:00: Lipitor) atorvastati No Notes: Semaj shashi n 6-10 (Same As: l 02:00: Lipitor) atorvastati No Notes: Semaj shashi n 6-10 (Same As: l 02:00: Lipitor) atorvastati No Notes: Semaj shashi n 6-10 (Same As: l 02:00: Lipitor) atorvastati No Notes: Semaj shashi n 6-10 (Same As: l 02:00: Lipitor) atorvastati No Notes: Semaj shashi n 6-10 (Same As: l 02:00: Lipitor) atorvastati No Notes: Semaj shashi n 6-10 (Same As: l 02:00: Lipitor) atorvastati No Notes: Semaj shashi n 6-10 (Same As: l 02:00: Lipitor) atorvastati No Notes: Semaj shashi n 6-10 (Same As: l 02:00: Lipitor) atorvastati No Notes: Semaj shashi n 6-10 (Same As: l 02:00: Lipitor) Lead 00 atorvastati No Notes: Semaj shashi n 6-10 (Same As: l 02:00: Lipitor) Coumadin No Notes: Memoria 6-09 Nurse to l 22:00: ensure documentat ion of patient education per anticoagul ation policy. Avoid large intake of vitamin-K containing foods diet. (Same As: Coumadin) WASTE: F/P - P Waste Black; E - P Waste Black Coumadin 2019-0 No Notes: Memoria 6-09 Nurse to l 22:00: ensure Lead 00 documentat ion of patient education per anticoagul ation policy. Avoid large intake of vitamin-K containing foods diet. (Same As: Coumadin) WASTE: F/P - P Waste Black; E - P Waste Black Coumadin 2019-0 No Notes: Memoria 6-09 Nurse to l 22:00: ensure Vinnie 00 documentat ion of patient education per anticoagul ation policy. Avoid large intake of vitamin-K containing foods diet. (Same As: Coumadin) WASTE: F/P - P Waste Black; E - P Waste Black Coumadin 2019-0 No Notes: Memoria 6-09 Nurse to l 22:00: ensure Lead 00 documentat ion of patient education per anticoagul ation policy. Avoid large intake of vitamin-K containing foods diet. (Same As: Coumadin) WASTE: F/P - P Waste Black; E - P Waste Black Coumadin 2019-0 No Notes: Memoria 6-09 Nurse to l 22:00: ensure Vinnie 00 documentat ion of patient education per anticoagul ation policy. Avoid large intake of vitamin-K containing foods diet. (Same As: Coumadin) WASTE: F/P - P Waste Black; E - P Waste Black Coumadin 2019-0 No Notes: Memoria 6-09 Nurse to l 22:00: ensure Vinnie 00 documentat ion of patient education per anticoagul ation policy. Avoid large intake of vitamin-K containing foods diet. (Same As: Coumadin) WASTE: F/P - P Waste Black; E - P Waste Black Coumadin 2019-0 No Notes: Memoria 6-09 Nurse to l 22:00: ensure Vinnie 00 documentat ion of patient education per anticoagul ation policy. Avoid large intake of vitamin-K containing foods diet. (Same As: Coumadin) WASTE: F/P - P Waste Black; E - P Waste Black Coumadin 2019-0 No Notes: Memoria 6-09 Nurse to l 22:00: ensure Vinnie 00 documentat ion of patient education per anticoagul ation policy. Avoid large intake of vitamin-K containing foods diet. (Same As: Coumadin) WASTE: F/P - P Waste Black; E - P Waste Black Coumadin 2019-0 No Notes: Riaoria 6-09 Nurse to l 22:00: ensure Vinnie 00 documentat ion of patient education per anticoagul ation policy. Avoid large intake of vitamin-K containing foods diet. (Same As: Coumadin) WASTE: F/P - P Waste Black; E - P Waste Black Coumadin 2019-0 No Notes: Memoria 6-09 Nurse to l 22:00: ensure Vinnie 00 documentat ion of patient education per anticoagul ation policy. Avoid large intake of vitamin-K containing foods diet. (Same As: Coumadin) WASTE: F/P - P Waste Black; E - P Waste Black Coumadin 2019- No Notes: Riaoria 6-09 Nurse to l 22:00: ensure Lead 00 documentat ion of patient education per anticoagul ation policy. Avoid large intake of vitamin-K containing foods diet. (Same As: Coumadin) WASTE: F/P - P Waste Black; E - P Waste Black Coumadin 2019- No Notes: Yaneth 6-09 Nurse to l 22:00: ensure Lead 00 documentat ion of patient education per anticoagul ation policy. Avoid large intake of vitamin-K containing foods diet. (Same As: Coumadin) WASTE: F/P - P Waste Black; E - P Waste Black Coumadin 2019-0 No Notes: Yaneth 6-09 Nurse to l 22:00: ensure Lead 00 documentat ion of patient education per anticoagul ation policy. Avoid large intake of vitamin-K containing foods diet. (Same As: Coumadin) WASTE: F/P - P Waste Black; E - P Waste Black Coumadin 2019- No Notes: Yaneth 6-09 Nurse to l 22:00: ensure Vinnie 00 documentat ion of patient education per anticoagul ation policy. Avoid large intake of vitamin-K containing foods diet. (Same As: Coumadin) WASTE: F/P - P Waste Black; E - P Waste Black Coumadin 2019-0 No Notes: Yaneth 6-09 Nurse to l 22:00: ensure Lead 00 documentat ion of patient education per anticoagul ation policy. Avoid large intake of vitamin-K containing foods diet. (Same As: Coumadin) WASTE: F/P - P Waste Black; E - P Waste Black Coumadin 2019-0 No Notes: Memoria 6-09 Nurse to l 22:00: ensure Lead 00 documentat ion of patient education per anticoagul ation policy. Avoid large intake of vitamin-K containing foods diet. (Same As: Coumadin) WASTE: F/P - P Waste Black; E - P Waste Black Coumadin 2019- No Notes: Memoria 6-09 Nurse to l 22:00: ensure Vinnie 00 documentat ion of patient education per anticoagul ation policy. Avoid large intake of vitamin-K containing foods diet. (Same As: Coumadin) WASTE: F/P - P Waste Black; E - P Waste Black Coumadin 2019- No Notes: Memoria 6-09 Nurse to l 22:00: ensure Lead 00 documentat ion of patient education per anticoagul ation policy. Avoid large intake of vitamin-K containing foods diet. (Same As: Coumadin) WASTE: F/P - P Waste Black; E - P Waste Black Coumadin 2018- No Notes: Yaneth 6-09 Nurse to l 22:00: ensure Vinnie 00 documentat ion of patient education per anticoagul ation policy. Avoid large intake of vitamin-K containing foods diet. (Same As: Coumadin) WASTE: F/P - P Waste Black; E - P Waste Black Coumadin 2019- No Notes: Riaoria 6-09 Nurse to l 22:00: ensure Vinnie 00 documentat ion of patient education per anticoagul ation policy. Avoid large intake of vitamin-K containing foods diet. (Same As: Coumadin) WASTE: F/P - P Waste Black; E - P Waste Black Coumadin 2019- No Notes: Memoria 6-09 Nurse to l 22:00: ensure Lead 00 documentat ion of patient education per anticoagul ation policy. Avoid large intake of vitamin-K containing foods diet. (Same As: Coumadin) WASTE: F/P - P Waste Black; E - P Waste Black Coumadin 2019- No Notes: Memoria 6-09 Nurse to l 22:00: ensure Vinnie 00 documentat ion of patient education per anticoagul ation policy. Avoid large intake of vitamin-K containing foods diet. (Same As: Coumadin) WASTE: F/P - P Waste Black; E - P Waste Black Coumadin 2019- No Notes: Memoria 6-09 Nurse to l 22:00: ensure Vinnie 00 documentat ion of patient education per anticoagul ation policy. Avoid large intake of vitamin-K containing foods diet. (Same As: Coumadin) WASTE: F/P - P Waste Black; E - P Waste Black Coumadin No Notes: Memoria 6-09 Nurse to l 22:00: ensure Vinnie 00 documentat ion of patient education per anticoagul ation policy. Avoid large intake of vitamin-K containing foods diet. (Same As: Coumadin) WASTE: F/P - P Waste Black; E - P Waste Black Coumadin No Notes: Memoria 6-09 Nurse to l 22:00: ensure Vinnie 00 documentat ion of patient education per anticoagul ation policy. Avoid large intake of vitamin-K containing foods diet. (Same As: Coumadin) WASTE: F/P - P Waste Black; E - P Waste Black Coumadin No Notes: Memoria 6-09 Nurse to l 22:00: ensure Vinnie 00 documentat ion of patient education per anticoagul ation policy. Avoid large intake of vitamin-K containing foods diet. (Same As: Coumadin) WASTE: F/P - P Waste Black; E - P Waste Black Coumadin No Notes: Memoria 6-09 Nurse to l 22:00: ensure Lead 00 documentat ion of patient education per anticoagul ation policy. Avoid large intake of vitamin-K containing foods diet. (Same As: Coumadin) WASTE: F/P - P Waste Black; E - P Waste Black Tylenol No Notes: Do Memor ia 02-21 not exceed l 16:39: 4 gm/day. (Same as: Tylenol) Tylenol No Notes: Do Memor ia 02-21 not exceed l 16:39: 4 gm/day. (Same as: Tylenol) Tylenol No Notes: Do Memor ia 02-21 not exceed l 16:39: 4 gm/day. (Same as: Tylenol) Tylenol No Notes: Do Memor ia 02-21 not exceed l 16:39: 4 gm/day. (Same as: Tylenol) Tylenol No Notes: Do Memor ia 02-21 not exceed l 16:39: 4 gm/day. (Same as: Tylenol) Tylenol 2019-0 No Notes: Do Memor ia 6-09 not exceed l 16:39: 4 gm/day. (Same as: Tylenol) Tylenol 2019-0 No Notes: Do Memor ia 6-09 not exceed l 16:39: 4 gm/day. (Same as: Tylenol) Tylenol 2019-0 No Notes: Do Memor ia 6-09 not exceed l 16:39: 4 gm/day. (Same as: Tylenol) Tylenol 2018-0 No Notes: Do Memor ia 6-09 not exceed l 16:39: 4 gm/day. (Same as: Tylenol) Tylenol 2018-0 No Notes: Do Memor ia 6-09 not exceed l 16:39: 4 gm/day. (Same as: Tylenol) Tylenol 2018-0 No Notes: Do Memor ia 6-09 not exceed l 16:39: 4 gm/day. (Same as: Tylenol) Tylenol 2018-0 No Notes: Do Memor ia 6-09 not exceed l 16:39: 4 gm/day. (Same as: Tylenol) Tylenol 2018-0 No Notes: Do Memor ia 6-09 not exceed l 16:39: 4 gm/day. (Same as: Tylenol) Tylenol 2018-0 No Notes: Do Memor ia 6-09 not exceed l 16:39: 4 gm/day. (Same as: Tylenol) Tylenol 2019-0 No Notes: Do Memor ia 6-09 not exceed l 16:39: 4 gm/day. (Same as: Tylenol) Tylenol 2018-0 No Notes: Do Memor ia 6-09 not exceed l 16:39: 4 gm/day. (Same as: Tylenol) Tylenol 2019-0 No Notes: Do Memor ia 6-09 not exceed l 16:39: 4 gm/day. (Same as: Tylenol) Tylenol 2018-0 No Notes: Do Memor ia 6-09 not exceed l 16:39: 4 gm/day. (Same as: Tylenol) Tylenol 2019-0 No Notes: Do Memor ia 6-09 not exceed l 16:39: 4 gm/day. (Same as: Tylenol) Tylenol 0 No Notes: Do Memor ia 6-09 not exceed l 16:39: 4 gm/day. (Same as: Tylenol) Tylenol 0 No Notes: Do Memor ia 6-09 not exceed l 16:39: 4 gm/day. (Same as: Tylenol) Tylenol No Notes: Do Memor ia 6-09 not exceed l 16:39: 4 gm/day. (Same as: Tylenol) Tylenol No Notes: Do Memor ia 6-09 not exceed l 16:39: 4 gm/day. (Same as: Tylenol) Tylenol 0 No Notes: Do Memor ia 6-09 not exceed l 16:39: 4 gm/day. (Same as: Tylenol) Tylenol No Notes: Do Memor ia 6-09 not exceed l 16:39: 4 gm/day. (Same as: Tylenol) Tylenol No Notes: Do Memor ia 6-09 not exceed l 16:39: 4 gm/day. (Same as: Tylenol) Tylenol 0 No Notes: Do Memor ia 6-09 not exceed l 16:39: 4 gm/day. (Same as: Tylenol) NS 1000 mL No 1,000 mL, Me moria 02-21 Rate: l 16:32: 1,000 Lead 00 ml/hr, Infuse over: 1 hr, Route: IV, Dosing Weight 75.5 kg, Total Volume: 1,000, Start date: 02/21/19 11:32:00 CDT, Duration: 1 doses or times, Stop date: 02/21/19 12:31:00 CDT, Bolus Dose, 1.9, m2 NS 1000 mL 0 No 1,000 mL, Me moria 6 Rate: l 16:32: 1,000 Lead 00 ml/hr, Infuse over: 1 hr, Route: IV, Dosing Weight 75.5 kg, Total Volume: 1,000, Start date: 02/21/19 11:32:00 CDT, Duration: 1 doses or times, Stop date: 02/21/19 12:31:00 CDT, Bolus Dose, 1.9, m2 NS 1000 mL 2019-0 No 1,000 mL, Me moria 6- Rate: l 16:32: 1,000 Vinnie 00 ml/hr, Infuse over: 1 hr, Route: IV, Dosing Weight 75.5 kg, Total Volume: 1,000, Start date: 02/21/19 11:32:00 CDT, Duration: 1 doses or times, Stop date: 02/21/19 12:31:00 CDT, Bolus Dose, 1.9, m2 NS 1000 mL 2019-0 No 1,000 mL, Me moria 6- Rate: l 16:32: 1,000 Vinnie 00 ml/hr, Infuse over: 1 hr, Route: IV, Dosing Weight 75.5 kg, Total Volume: 1,000, Start date: 02/21/19 11:32:00 CDT, Duration: 1 doses or times, Stop date: 02/21/19 12:31:00 CDT, Bolus Dose, 1.9, m2 NS 1000 mL 2019-0 No 1,000 mL, Me moria 6- Rate: l 16:32: 1,000 Vinnie 00 ml/hr, Infuse over: 1 hr, Route: IV, Dosing Weight 75.5 kg, Total Volume: 1,000, Start date: 02/21/19 11:32:00 CDT, Duration: 1 doses or times, Stop date: 02/21/19 12:31:00 CDT, Bolus Dose, 1.9, m2 NS 1000 mL 2019-0 No 1,000 mL, Me moria 6-09 Rate: l 16:32: 1,000 Lead 00 ml/hr, Infuse over: 1 hr, Route: IV, Dosing Weight 75.5 kg, Total Volume: 1,000, Start date: 02/21/19 11:32:00 CDT, Duration: 1 doses or times, Stop date: 02/21/19 12:31:00 CDT, Bolus Dose, 1.9, m2 NS 1000 mL 2019-0 No 1,000 mL, Me moria 6-09 Rate: l 16:32: 1,000 Vinnie 00 ml/hr, Infuse over: 1 hr, Route: IV, Dosing Weight 75.5 kg, Total Volume: 1,000, Start date: 02/21/19 11:32:00 CDT, Duration: 1 doses or times, Stop date: 02/21/19 12:31:00 CDT, Bolus Dose, 1.9, m2 NS 1000 mL 2019-0 No 1,000 mL, Me moria 6- Rate: l 16:32: 1,000 Lead 00 ml/hr, Infuse over: 1 hr, Route: IV, Dosing Weight 75.5 kg, Total Volume: 1,000, Start date: 02/21/19 11:32:00 CDT, Duration: 1 doses or times, Stop date: 02/21/19 12:31:00 CDT, Bolus Dose, 1.9, m2 NS 1000 mL 2019-0 No 1,000 mL, Me moria 6 Rate: l 16:32: 1,000 Vinnie 00 ml/hr, Infuse over: 1 hr, Route: IV, Dosing Weight 75.5 kg, Total Volume: 1,000, Start date: 02/21/19 11:32:00 CDT, Duration: 1 doses or times, Stop date: 02/21/19 12:31:00 CDT, Bolus Dose, 1.9, m2 NS 1000 mL 2019-0 No 1,000 mL, Me moria 6- Rate: l 16:32: 1,000 Lead 00 ml/hr, Infuse over: 1 hr, Route: IV, Dosing Weight 75.5 kg, Total Volume: 1,000, Start date: 02/21/19 11:32:00 CDT, Duration: 1 doses or times, Stop date: 02/21/19 12:31:00 CDT, Bolus Dose, 1.9, m2 NS 1000 mL 2019-0 No 1,000 mL, Me moria 6- Rate: l 16:32: 1,000 Vinnie 00 ml/hr, Infuse over: 1 hr, Route: IV, Dosing Weight 75.5 kg, Total Volume: 1,000, Start date: 02/21/19 11:32:00 CDT, Duration: 1 doses or times, Stop date: 02/21/19 12:31:00 CDT, Bolus Dose, 1.9, m2 NS 1000 mL 2019-0 No 1,000 mL, Me moria 6- Rate: l 16:32: 1,000 Vinnie 00 ml/hr, Infuse over: 1 hr, Route: IV, Dosing Weight 75.5 kg, Total Volume: 1,000, Start date: 02/21/19 11:32:00 CDT, Duration: 1 doses or times, Stop date: 02/21/19 12:31:00 CDT, Bolus Dose, 1.9, m2 NS 1000 mL 2019-0 No 1,000 mL, Me moria 6- Rate: l 16:32: 1,000 Vinnie 00 ml/hr, Infuse over: 1 hr, Route: IV, Dosing Weight 75.5 kg, Total Volume: 1,000, Start date: 02/21/19 11:32:00 CDT, Duration: 1 doses or times, Stop date: 02/21/19 12:31:00 CDT, Bolus Dose, 1.9, m2 NS 1000 mL 2018-0 No 1,000 mL, Me moria 6- Rate: l 16:32: 1,000 Lead 00 ml/hr, Infuse over: 1 hr, Route: IV, Dosing Weight 75.5 kg, Total Volume: 1,000, Start date: 02/21/19 11:32:00 CDT, Duration: 1 doses or times, Stop date: 02/21/19 12:31:00 CDT, Bolus Dose, 1.9, m2 NS 1000 mL 2019-0 No 1,000 mL, Me moria 6- Rate: l 16:32: 1,000 Lead 00 ml/hr, Infuse over: 1 hr, Route: IV, Dosing Weight 75.5 kg, Total Volume: 1,000, Start date: 02/21/19 11:32:00 CDT, Duration: 1 doses or times, Stop date: 02/21/19 12:31:00 CDT, Bolus Dose, 1.9, m2 NS 1000 mL 2019-0 No 1,000 mL, Me moria 6- Rate: l 16:32: 1,000 Vinnie 00 ml/hr, Infuse over: 1 hr, Route: IV, Dosing Weight 75.5 kg, Total Volume: 1,000, Start date: 02/21/19 11:32:00 CDT, Duration: 1 doses or times, Stop date: 02/21/19 12:31:00 CDT, Bolus Dose, 1.9, m2 NS 1000 mL 2019-0 No 1,000 mL, Me moria 6- Rate: l 16:32: 1,000 Vinnie 00 ml/hr, Infuse over: 1 hr, Route: IV, Dosing Weight 75.5 kg, Total Volume: 1,000, Start date: 02/21/19 11:32:00 CDT, Duration: 1 doses or times, Stop date: 02/21/19 12:31:00 CDT, Bolus Dose, 1.9, m2 NS 1000 mL 2019-0 No 1,000 mL, Me moria 6- Rate: l 16:32: 1,000 Lead 00 ml/hr, Infuse over: 1 hr, Route: IV, Dosing Weight 75.5 kg, Total Volume: 1,000, Start date: 02/21/19 11:32:00 CDT, Duration: 1 doses or times, Stop date: 02/21/19 12:31:00 CDT, Bolus Dose, 1.9, m2 NS 1000 mL 2019-0 No 1,000 mL, Me moria 6- Rate: l 16:32: 1,000 Lead 00 ml/hr, Infuse over: 1 hr, Route: IV, Dosing Weight 75.5 kg, Total Volume: 1,000, Start date: 02/21/19 11:32:00 CDT, Duration: 1 doses or times, Stop date: 02/21/19 12:31:00 CDT, Bolus Dose, 1.9, m2 NS 1000 mL 2019-0 No 1,000 mL, Me moria 6-09 Rate: l 16:32: 1,000 Lead 00 ml/hr, Infuse over: 1 hr, Route: IV, Dosing Weight 75.5 kg, Total Volume: 1,000, Start date: 02/21/19 11:32:00 CDT, Duration: 1 doses or times, Stop date: 02/21/19 12:31:00 CDT, Bolus Dose, 1.9, m2 NS 1000 mL 2019-0 No 1,000 mL, Me moria 6-09 Rate: l 16:32: 1,000 Lead 00 ml/hr, Infuse over: 1 hr, Route: IV, Dosing Weight 75.5 kg, Total Volume: 1,000, Start date: 02/21/19 11:32:00 CDT, Duration: 1 doses or times, Stop date: 02/21/19 12:31:00 CDT, Bolus Dose, 1.9, m2 NS 1000 mL 2019-0 No 1,000 mL, Me moria 6 Rate: l 16:32: 1,000 Lead 00 ml/hr, Infuse over: 1 hr, Route: IV, Dosing Weight 75.5 kg, Total Volume: 1,000, Start date: 02/21/19 11:32:00 CDT, Duration: 1 doses or times, Stop date: 02/21/19 12:31:00 CDT, Bolus Dose, 1.9, m2 NS 1000 mL 2019-0 No 1,000 mL, Me moria 6 Rate: l 16:32: 1,000 Lead 00 ml/hr, Infuse over: 1 hr, Route: IV, Dosing Weight 75.5 kg, Total Volume: 1,000, Start date: 02/21/19 11:32:00 CDT, Duration: 1 doses or times, Stop date: 02/21/19 12:31:00 CDT, Bolus Dose, 1.9, m2 NS 1000 mL 2019-0 No 1,000 mL, Me moria 6 Rate: l 16:32: 1,000 Lead 00 ml/hr, Infuse over: 1 hr, Route: IV, Dosing Weight 75.5 kg, Total Volume: 1,000, Start date: 02/21/19 11:32:00 CDT, Duration: 1 doses or times, Stop date: 02/21/19 12:31:00 CDT, Bolus Dose, 1.9, m2 NS 1000 mL 2019-0 No 1,000 mL, Me moria 6- Rate: l 16:32: 1,000 Lead 00 ml/hr, Infuse over: 1 hr, Route: IV, Dosing Weight 75.5 kg, Total Volume: 1,000, Start date: 02/21/19 11:32:00 CDT, Duration: 1 doses or times, Stop date: 02/21/19 12:31:00 CDT, Bolus Dose, 1.9, m2 NS 1000 mL 20190 No 1,000 mL, Me moria 6-09 Rate: l 16:32: 1,000 Lead 00 ml/hr, Infuse over: 1 hr, Route: IV, Dosing Weight 75.5 kg, Total Volume: 1,000, Start date: 02/21/19 11:32:00 CDT, Duration: 1 doses or times, Stop date: 02/21/19 12:31:00 CDT, Bolus Dose, 1.9, m2 NS 1000 mL 0 No 1,000 mL, Me moria 6-09 Rate: l 16:32: 1,000 Vinnie 00 ml/hr, Infuse over: 1 hr, Route: IV, Dosing Weight 75.5 kg, Total Volume: 1,000, Start date: 02/21/19 11:32:00 CDT, Duration: 1 doses or times, Stop date: 02/21/19 12:31:00 CDT, Bolus Dose, 1.9, m2 Aspirin 81 0 No Notes: Memor ia MG Chewable 6-09 Take with l Tablet 15:00: food. Aspirin 81 No Notes: Memor ia MG Chewable 6-09 Take with l Tablet 15:00: food. Aspirin 81 0 No Notes: Memor ia MG Chewable 6-09 Take with l Tablet 15:00: food. Aspirin 81 0 No Notes: Memor ia MG Chewable 6-09 Take with l Tablet 15:00: food. Aspirin 81 0 No Notes: Memor ia MG Chewable 6-09 Take with l Tablet 15:00: food. Aspirin 81 0 No Notes: Memor ia MG Chewable 6-09 Take with l Tablet 15:00: food. Aspirin 81 2018-0 No Notes: Memor ia MG Chewable 6-09 Take with l Tablet 15:00: food. Aspirin 81 2018-0 No Notes: Memor ia MG Chewable 6-09 Take with l Tablet 15:00: food. Aspirin 81 0 No Notes: Memor ia MG Chewable 6-09 Take with l Tablet 15:00: food. Aspirin 81 0 No Notes: Memor ia MG Chewable 6-09 Take with l Tablet 15:00: food. Aspirin 81 2019-0 No Notes: Memor ia MG Chewable 6-09 Take with l Tablet 15:00: food. Aspirin 81 2019-0 No Notes: Memor ia MG Chewable 6-09 Take with l Tablet 15:00: food. Aspirin 81 2018-0 No Notes: Memor ia MG Chewable 6-09 Take with l Tablet 15:00: food. Aspirin 81 2018-0 No Notes: Memor ia MG Chewable 6-09 Take with l Tablet 15:00: food. Aspirin 81 2018-0 No Notes: Memor ia MG Chewable 6-09 Take with l Tablet 15:00: food. Aspirin 81 2018-0 No Notes: Memor ia MG Chewable 6-09 Take with l Tablet 15:00: food. Aspirin 81 2018-0 No Notes: Memor ia MG Chewable 6-09 Take with l Tablet 15:00: food. Aspirin 81 0 No Notes: Memor ia MG Chewable 6-09 Take with l Tablet 15:00: food. Aspirin 81 2018-0 No Notes: Memor ia MG Chewable 6-09 Take with l Tablet 15:00: food. Aspirin 81 2018-0 No Notes: Memor ia MG Chewable 6-09 Take with l Tablet 15:00: food. Aspirin 81 2018-0 No Notes: Memor ia MG Chewable 6-09 Take with l Tablet 15:00: food. Aspirin 81 2018-0 No Notes: Memor ia MG Chewable 6-09 Take with l Tablet 15:00: food. Aspirin 81 2018-0 No Notes: Memor ia MG Chewable 6-09 Take with l Tablet 15:00: food. Aspirin 81 2018-0 No Notes: Memor ia MG Chewable 6-09 Take with l Tablet 15:00: food. Aspirin 81 2018-0 No Notes: Memor ia MG Chewable 6-09 Take with l Tablet 15:00: food. Aspirin 81 2018-0 No Notes: Memor ia MG Chewable 6-09 Take with l Tablet 15:00: food. Aspirin 81 No Notes: Memor ia MG Chewable 6-09 Take with l Tablet 15:00: food. Vinnie 00 Saline No Notes: Memoria Flush 0.9% 6-09 (Same as: l 14:00: BD Vinnie 00 Posiflush) Famotidine No Notes: Memor ia 6-09 (Same as: l 14:00: Pepcid) Vinnie 00 Can be dilute in 5-10cc NS IVP: Slow IV push over at least 2 minutes. Saline No Notes: Memoria Flush 0.9% 6-09 (Same as: l 14:00: BD Vinnie 00 Posiflush) Famotidine No Notes: Memor ia 6-09 (Same as: l 14:00: Pepcid) Vinnie 00 Can be dilute in 5-10cc NS IVP: Slow IV push over at least 2 minutes. Saline No Notes: Memoria Flush 0.9% 6-09 (Same as: l 14:00: BD Vinnie 00 Posiflush) Famotidine No Notes: Memor ia 6-09 (Same as: l 14:00: Pepcid) Vinnie 00 Can be dilute in 5-10cc NS IVP: Slow IV push over at least 2 minutes. Saline No Notes: Memoria Flush 0.9% 6-09 (Same as: l 14:00: BD Lead 00 Posiflush) Famotidine No Notes: Memor ia 6-09 (Same as: l 14:00: Pepcid) Lead 00 Can be dilute in 5-10cc NS IVP: Slow IV push over at least 2 minutes. Saline No Notes: Memoria Flush 0.9% 6-09 (Same as: l 14:00: BD Lead 00 Posiflush) Famotidine No Notes: Memor ia 6-09 (Same as: l 14:00: Pepcid) Lead 00 Can be dilute in 5-10cc NS IVP: Slow IV push over at least 2 minutes. Saline No Notes: Memoria Flush 0.9% 6-09 (Same as: l 14:00: BD Vinnie 00 Posiflush) Famotidine No Notes: Memor ia 6-09 (Same as: l 14:00: Pepcid) Lead 00 Can be dilute in 5-10cc NS IVP: Slow IV push over at least 2 minutes. Saline No Notes: Memoria Flush 0.9% 6-09 (Same as: l 14:00: BD Lead 00 Posiflush) Famotidine No Notes: Memor ia 6-09 (Same as: l 14:00: Pepcid) Vinnie 00 Can be dilute in 5-10cc NS IVP: Slow IV push over at least 2 minutes. Saline No Notes: Memoria Flush 0.9% 6-09 (Same as: l 14:00: BD Lead 00 Posiflush) Famotidine No Notes: Memor ia 6-09 (Same as: l 14:00: Pepcid) Vinnie 00 Can be dilute in 5-10cc NS IVP: Slow IV push over at least 2 minutes. Saline No Notes: Memoria Flush 0.9% 6-09 (Same as: l 14:00: BD Vinnie 00 Posiflush) Famotidine No Notes: Memor ia 6-09 (Same as: l 14:00: Pepcid) Vinnie 00 Can be dilute in 5-10cc NS IVP: Slow IV push over at least 2 minutes. Saline No Notes: Memoria Flush 0.9% 6-09 (Same as: l 14:00: BD Vinnie 00 Posiflush) Famotidine No Notes: Memor ia 6-09 (Same as: l 14:00: Pepcid) Vinnie 00 Can be dilute in 5-10cc NS IVP: Slow IV push over at least 2 minutes. Saline No Notes: Memoria Flush 0.9% 6-09 (Same as: l 14:00: BD Lead 00 Posiflush) Famotidine No Notes: Memor ia 6-09 (Same as: l 14:00: Pepcid) Lead 00 Can be dilute in 5-10cc NS IVP: Slow IV push over at least 2 minutes. Saline No Notes: Memoria Flush 0.9% 6-09 (Same as: l 14:00: BD Lead 00 Posiflush) Famotidine No Notes: Memor ia 6-09 (Same as: l 14:00: Pepcid) Lead 00 Can be dilute in 5-10cc NS IVP: Slow IV push over at least 2 minutes. Saline No Notes: Memoria Flush 0.9% 6-09 (Same as: l 14:00: BD Lead 00 Posiflush) Famotidine No Notes: Memor ia 6-09 (Same as: l 14:00: Pepcid) Lead 00 Can be dilute in 5-10cc NS IVP: Slow IV push over at least 2 minutes. Saline No Notes: Memoria Flush 0.9% 6-09 (Same as: l 14:00: BD Lead 00 Posiflush) Famotidine No Notes: Memor ia 6-09 (Same as: l 14:00: Pepcid) Lead 00 Can be dilute in 5-10cc NS IVP: Slow IV push over at least 2 minutes. Saline No Notes: Memoria Flush 0.9% 6-09 (Same as: l 14:00: BD Lead 00 Posiflush) Famotidine No Notes: Memor ia 6-09 (Same as: l 14:00: Pepcid) Lead 00 Can be dilute in 5-10cc NS IVP: Slow IV push over at least 2 minutes. Saline No Notes: Memoria Flush 0.9% 6-09 (Same as: l 14:00: BD Vinnie 00 Posiflush) Famotidine No Notes: Memor ia 6-09 (Same as: l 14:00: Pepcid) Lead 00 Can be dilute in 5-10cc NS IVP: Slow IV push over at least 2 minutes. Saline No Notes: Memoria Flush 0.9% 6-09 (Same as: l 14:00: BD Lead 00 Posiflush) Famotidine No Notes: Memor ia 6-09 (Same as: l 14:00: Pepcid) Vinnie 00 Can be dilute in 5-10cc NS IVP: Slow IV push over at least 2 minutes. Saline No Notes: Memoria Flush 0.9% 6-09 (Same as: l 14:00: BD Lead 00 Posiflush) Famotidine No Notes: Memor ia 6-09 (Same as: l 14:00: Pepcid) Lead 00 Can be dilute in 5-10cc NS IVP: Slow IV push over at least 2 minutes. Saline No Notes: Memoria Flush 0.9% 6-09 (Same as: l 14:00: BD Lead 00 Posiflush) Famotidine No Notes: Memor ia 6-09 (Same as: l 14:00: Pepcid) Lead 00 Can be dilute in 5-10cc NS IVP: Slow IV push over at least 2 minutes. Saline No Notes: Memoria Flush 0.9% 6-09 (Same as: l 14:00: BD Vinnie 00 Posiflush) Famotidine No Notes: Memor ia 6-09 (Same as: l 14:00: Pepcid) Vinnie 00 Can be dilute in 5-10cc NS IVP: Slow IV push over at least 2 minutes. Saline No Notes: Memoria Flush 0.9% 6-09 (Same as: l 14:00: BD Lead 00 Posiflush) Famotidine No Notes: Memor ia 6-09 (Same as: l 14:00: Pepcid) Lead 00 Can be dilute in 5-10cc NS IVP: Slow IV push over at least 2 minutes. Saline No Notes: Memoria Flush 0.9% 6-09 (Same as: l 14:00: BD Vinnie 00 Posiflush) Famotidine No Notes: Memor ia 6-09 (Same as: l 14:00: Pepcid) Lead 00 Can be dilute in 5-10cc NS IVP: Slow IV push over at least 2 minutes. Saline No Notes: Memoria Flush 0.9% 6-09 (Same as: l 14:00: BD Lead 00 Posiflush) Famotidine No Notes: Memor ia 6-09 (Same as: l 14:00: Pepcid) Vinnie 00 Can be dilute in 5-10cc NS IVP: Slow IV push over at least 2 minutes. Saline No Notes: Memoria Flush 0.9% 6-09 (Same as: l 14:00: BD Lead 00 Posiflush) Famotidine No Notes: Memor ia 6-09 (Same as: l 14:00: Pepcid) Lead 00 Can be dilute in 5-10cc NS IVP: Slow IV push over at least 2 minutes. Saline No Notes: Memoria Flush 0.9% 6-09 (Same as: l 14:00: BD Vinnie 00 Posiflush) Famotidine No Notes: Memor ia 6-09 (Same as: l 14:00: Pepcid) Lead 00 Can be dilute in 5-10cc NS IVP: Slow IV push over at least 2 minutes. Saline No Notes: Memoria Flush 0.9% 6-09 (Same as: l 14:00: BD Vinnie 00 Posiflush) Famotidine No Notes: Memor ia 6-09 (Same as: l 14:00: Pepcid) Lead 00 Can be dilute in 5-10cc NS IVP: Slow IV push over at least 2 minutes. Saline No Notes: Memoria Flush 0.9% 6-09 (Same as: l 14:00: BD Vinnie 00 Posiflush) Famotidine No Notes: Memor ia 6-09 (Same as: l 14:00: Pepcid) Vinnie 00 Can be dilute in 5-10cc NS IVP: Slow IV push over at least 2 minutes. cefepime No Notes: Memoria 6- (Same As: l 13:00: Maxipime) Vinnie 00 MEDICATION WASTE Product Size: 1000 mg Product Wasted: ___ mg cefepime 0 No Notes: Memoria 6- (Same As: l 13:00: Maxipime) Vinnie 00 MEDICATION WASTE Product Size: 1000 mg Product Wasted: ___ mg cefepime 0 No Notes: Memoria 6- (Same As: l 13:00: Maxipime) Vinnie 00 MEDICATION WASTE Product Size: 1000 mg Product Wasted: ___ mg cefepime 2019-0 No Notes: Memoria 02-21 (Same As: l 13:00: Maxipime) Vinnie 00 MEDICATION WASTE Product Size: 1000 mg Product Wasted: ___ mg cefepime 2019-0 No Notes: oria 02-21 (Same As: l 13:00: Maxipime) Vinnie 00 MEDICATION WASTE Product Size: 1000 mg Product Wasted: ___ mg cefepime 2019-0 No Notes: Memoria 02-21 (Same As: l 13:00: Maxipime) Vinnie 00 MEDICATION WASTE Product Size: 1000 mg Product Wasted: ___ mg cefepime 2019-0 No Notes: oria 02-21 (Same As: l 13:00: Maxipime) Vinnie 00 MEDICATION WASTE Product Size: 1000 mg Product Wasted: ___ mg cefepime 2019-0 No Notes: oria 02-21 (Same As: l 13:00: Maxipime) Vinnie 00 MEDICATION WASTE Product Size: 1000 mg Product Wasted: ___ mg cefepime 2019-0 No Notes: oria 02-21 (Same As: l 13:00: Maxipime) Vinnie 00 MEDICATION WASTE Product Size: 1000 mg Product Wasted: ___ mg cefepime 2019-0 No Notes: oria 02-21 (Same As: l 13:00: Maxipime) Vinnie 00 MEDICATION WASTE Product Size: 1000 mg Product Wasted: ___ mg cefepime 2019-0 No Notes: Memoria 02-21 (Same As: l 13:00: Maxipime) Vinnie 00 MEDICATION WASTE Product Size: 1000 mg Product Wasted: ___ mg cefepime 2019-0 No Notes: oria 02-21 (Same As: l 13:00: Maxipime) Vinnie 00 MEDICATION WASTE Product Size: 1000 mg Product Wasted: ___ mg cefepime 2019-0 No Notes: Memoria 02-21 (Same As: l 13:00: Maxipime) Vinnie 00 MEDICATION WASTE Product Size: 1000 mg Product Wasted: ___ mg cefepime 2019-0 No Notes: Memoria 02-21 (Same As: l 13:00: Maxipime) Vinnie 00 MEDICATION WASTE Product Size: 1000 mg Product Wasted: ___ mg cefepime 2019-0 No Notes: oria 02-21 (Same As: l 13:00: Maxipime) Vinnie 00 MEDICATION WASTE Product Size: 1000 mg Product Wasted: ___ mg cefepime 2019-0 No Notes: oria 02-21 (Same As: l 13:00: Maxipime) Vinnie 00 MEDICATION WASTE Product Size: 1000 mg Product Wasted: ___ mg cefepime 2019-0 No Notes: oria 02-21 (Same As: l 13:00: Maxipime) Vinnie 00 MEDICATION WASTE Product Size: 1000 mg Product Wasted: ___ mg cefepime 2019-0 No Notes: oria 02-21 (Same As: l 13:00: Maxipime) Vinnie 00 MEDICATION WASTE Product Size: 1000 mg Product Wasted: ___ mg cefepime 2019-0 No Notes: oria 02-21 (Same As: l 13:00: Maxipime) Vinnie 00 MEDICATION WASTE Product Size: 1000 mg Product Wasted: ___ mg cefepime 2019-0 No Notes: oria 02-21 (Same As: l 13:00: Maxipime) Vinnie 00 MEDICATION WASTE Product Size: 1000 mg Product Wasted: ___ mg cefepime 2019-0 No Notes: Memoria 02-21 (Same As: l 13:00: Maxipime) Vinnie 00 MEDICATION WASTE Product Size: 1000 mg Product Wasted: ___ mg cefepime 2019-0 No Notes: [facility]oria 02-21 (Same As: l 13:00: Maxipime) Vinnie 00 MEDICATION WASTE Product Size: 1000 mg Product Wasted: ___ mg cefepime 2019-0 No Notes: [facility]oria 02-21 (Same As: l 13:00: Maxipime) Vinnie 00 MEDICATION WASTE Product Size: 1000 mg Product Wasted: ___ mg cefepime 2018- No Notes: [facility]oria 02-21 (Same As: l 13:00: Maxipime) Vinnie 00 MEDICATION WASTE Product Size: 1000 mg Product Wasted: ___ mg cefepime No Notes: Memoria 02-21 (Same As: l 13:00: Maxipime) Vinnie 00 MEDICATION WASTE Product Size: 1000 mg Product Wasted: ___ mg cefepime 2018- No Notes: [facility]oria 02-21 (Same As: l 13:00: Maxipime) Lead 00 MEDICATION WASTE Product Size: 1000 mg Product Wasted: ___ mg cefepime 2018- No Notes: [facility]oria 02-21 (Same As: l 13:00: Maxipime) Lead 00 MEDICATION WASTE Product Size: 1000 mg Product Wasted: ___ mg Heparin 30 No Route: [facility] unit/kg 02-21 IVP, PRN, l Bolus 07:05: 2,000 Vinnie (Heparin 00 unit, 2 Dosing mL, Drug Weight) form: INJ, PRN, Heparin Protocol, Start date: 02/21/19 2:05:00 CDT Stop date: 03/23/19 2:04:00 CDT, 30 day Heparin 60 No Route: Mem[facility] ia unit/kg 02-21 IVP, PRN, l Bolus 07:05: 4,000 Vinnie (Heparin 00 unit, 4 Dosing mL, Drug Weight) form: INJ, PRN, Heparin Protocol, Start date: 02/21/19 2:05:00 CDT Stop date: 03/23/19 2:04:00 CDT, 30 day heparin No 500 mL, Memoria additive 02-21 Rate: 16.1 l 25,000 unit 07:05: ml/hr, Herm avis [12 00 Infuse unit/kg/hr] over: 31.1 + Premix hr, Route: Diluent IV, Dosing Dextrose 5% Weight 500 mL 67.1 kg, Total Volume: 500 mL, Start date: 02/21/19 2:05:00 CDT, Duration: 30 day, Stop date: 03/23/19 2:04:00 CDT, 1.79, m2 Heparin 30 No Route: Mem[facility] ia unit/kg 6-09 IVP, PRN, l Bolus 07:05: 2,000 Lead (Heparin 00 unit, 2 Dosing mL, Drug Weight) form: INJ, PRN, Heparin Protocol, Start date: 02/21/19 2:05:00 CDT Stop date: 03/23/19 2:04:00 CDT, 30 day Heparin 60 No Route: Mem[facility] ia unit/kg 6-09 IVP, PRN, l Bolus 07:05: 4,000 Lead (Heparin 00 unit, 4 Dosing mL, Drug Weight) form: INJ, PRN, Heparin Protocol, Start date: 02/21/19 2:05:00 CDT Stop date: 03/23/19 2:04:00 CDT, 30 day heparin No 500 mL, Memoria additive 02-21 Rate: 16.1 l 25,000 unit 07:05: ml/hr, Herm avis [12 00 Infuse unit/kg/hr] over: 31.1 + Premix hr, Route: Diluent IV, Dosing Dextrose 5% Weight 500 mL 67.1 kg, Total Volume: 500 mL, Start date: 02/21/19 2:05:00 CDT, Duration: 30 day, Stop date: 03/23/19 2:04:00 CDT, 1.79, m2 Heparin 30 No Route: Mem[facility] ia unit/kg 6-09 IVP, PRN, l Bolus 07:05: 2,000 Vinnie (Heparin 00 unit, 2 Dosing mL, Drug Weight) form: INJ, PRN, Heparin Protocol, Start date: 02/21/19 2:05:00 CDT Stop date: 03/23/19 2:04:00 CDT, 30 day Heparin 60 No Route: [facility] ia unit/kg 6-09 IVP, PRN, l Bolus 07:05: 4,000 Lead (Heparin 00 unit, 4 Dosing mL, Drug Weight) form: INJ, PRN, Heparin Protocol, Start date: 02/21/19 2:05:00 CDT Stop date: 03/23/19 2:04:00 CDT, 30 day heparin 2019-0 No 500 mL, Memoria additive 6-09 Rate: 16.1 l 25,000 unit 07:05: ml/hr, Herm avis [12 00 Infuse unit/kg/hr] over: 31.1 + Premix hr, Route: Diluent IV, Dosing Dextrose 5% Weight 500 mL 67.1 kg, Total Volume: 500 mL, Start date: 02/21/19 2:05:00 CDT, Duration: 30 day, Stop date: 03/23/19 2:04:00 CDT, 1.79, m2 Heparin 30 No Route: [facility] ia unit/kg 6-09 IVP, PRN, l Bolus 07:05: 2,000 Vinnie (Heparin 00 unit, 2 Dosing mL, Drug Weight) form: INJ, PRN, Heparin Protocol, Start date: 02/21/19 2:05:00 CDT Stop date: 03/23/19 2:04:00 CDT, 30 day Heparin 60 0 No Route: [facility] ia unit/kg 6-09 IVP, PRN, l Bolus 07:05: 4,000 Vinnie (Heparin 00 unit, 4 Dosing mL, Drug Weight) form: INJ, PRN, Heparin Protocol, Start date: 02/21/19 2:05:00 CDT Stop date: 03/23/19 2:04:00 CDT, 30 day heparin 2019-0 No 500 mL, Memoria additive 6- Rate: 16.1 l 25,000 unit 07:05: ml/hr, Herm avis [12 00 Infuse unit/kg/hr] over: 31.1 + Premix hr, Route: Diluent IV, Dosing Dextrose 5% Weight 500 mL 67.1 kg, Total Volume: 500 mL, Start date: 02/21/19 2:05:00 CDT, Duration: 30 day, Stop date: 03/23/19 2:04:00 CDT, 1.79, m2 Heparin 30 0 No Route: [facility] unit/kg 6-09 IVP, PRN, l Bolus 07:05: 2,000 Lead (Heparin 00 unit, 2 Dosing mL, Drug Weight) form: INJ, PRN, Heparin Protocol, Start date: 02/21/19 2:05:00 CDT Stop date: 03/23/19 2:04:00 CDT, 30 day Heparin 60 2019-0 No Route: [facility] unit/kg 6-09 IVP, PRN, l Bolus 07:05: 4,000 Lead (Heparin 00 unit, 4 Dosing mL, Drug Weight) form: INJ, PRN, Heparin Protocol, Start date: 02/21/19 2:05:00 CDT Stop date: 03/23/19 2:04:00 CDT, 30 day heparin 2019-0 No 500 mL, Memoria additive 6- Rate: 16.1 l 25,000 unit 07:05: ml/hr, Herm avis [12 00 Infuse unit/kg/hr] over: 31.1 + Premix hr, Route: Diluent IV, Dosing Dextrose 5% Weight 500 mL 67.1 kg, Total Volume: 500 mL, Start date: 02/21/19 2:05:00 CDT, Duration: 30 day, Stop date: 03/23/19 2:04:00 CDT, 1.79, m2 Heparin 30 2018-0 No Route: [facility] unit/kg 6-09 IVP, PRN, l Bolus 07:05: 2,000 Lead (Heparin 00 unit, 2 Dosing mL, Drug Weight) form: INJ, PRN, Heparin Protocol, Start date: 02/21/19 2:05:00 CDT Stop date: 03/23/19 2:04:00 CDT, 30 day Heparin 60 2019-0 No Route: [facility] unit/kg 6-09 IVP, PRN, l Bolus 07:05: 4,000 Vinnie (Heparin 00 unit, 4 Dosing mL, Drug Weight) form: INJ, PRN, Heparin Protocol, Start date: 02/21/19 2:05:00 CDT Stop date: 03/23/19 2:04:00 CDT, 30 day heparin 2019-0 No 500 mL, Memoria additive 6-09 Rate: 16.1 l 25,000 unit 07:05: ml/hr, Herm avis [12 00 Infuse unit/kg/hr] over: 31.1 + Premix hr, Route: Diluent IV, Dosing Dextrose 5% Weight 500 mL 67.1 kg, Total Volume: 500 mL, Start date: 02/21/19 2:05:00 CDT, Duration: 30 day, Stop date: 03/23/19 2:04:00 CDT, 1.79, m2 Heparin 30 No Route: Memor ia unit/kg 6-09 IVP, PRN, l Bolus 07:05: 2,000 Vinnie (Heparin 00 unit, 2 Dosing mL, Drug [...] date: 03/23/19 2:04:00 CDT, 30 day heparin No 500 mL, Memoria additive 6- Rate: 16.1 l 25,000 unit 07:05: ml/hr, Herm avis [12 00 Infuse unit/kg/hr] over: 31.1 + Premix hr, Route: Diluent IV, Dosing Dextrose 5% Weight 500 mL 67.1 kg, Total Volume: 500 mL, Start date: 02/21/19 2:05:00 CDT, Duration: 30 day, Stop date: 03/23/19 2:04:00 CDT, 1.79, m2 Heparin 30 No Route: Memor ia unit/kg 6-09 IVP, PRN, l Bolus 07:05: 2,000 Lead (Heparin 00 unit, 2 Dosing mL, Drug Weight) form: INJ, PRN, Heparin Protocol, Start date: 02/21/19 2:05:00 CDT Stop date: 03/23/19 2:04:00 CDT, 30 day Heparin 60 No Route: Memor ia unit/kg 6-09 IVP, PRN, l Bolus 07:05: 4,000 Lead (Heparin 00 unit, 4 Dosing mL, Drug Weight) form: INJ, PRN, Heparin Protocol, Start date: 02/21/19 2:05:00 CDT Stop date: 03/23/19 2:04:00 CDT, 30 day heparin 2019-0 No 500 mL, Memoria additive 6-09 Rate: 16.1 l 25,000 unit 07:05: ml/hr, Herm avis [12 00 Infuse unit/kg/hr] over: 31.1 + Premix hr, Route: Diluent IV, Dosing Dextrose 5% Weight 500 mL 67.1 kg, Total Volume: 500 mL, Start date: 02/21/19 2:05:00 CDT, Duration: 30 day, Stop date: 03/23/19 2:04:00 CDT, 1.79, m2 Heparin 30 No Route: Memor ia unit/kg 6-09 IVP, PRN, l Bolus 07:05: 2,000 Lead (Heparin 00 unit, 2 Dosing mL, Drug Weight) form: INJ, PRN, Heparin Protocol, Start date: 02/21/19 2:05:00 CDT Stop date: 03/23/19 2:04:00 CDT, 30 day Heparin 60 0 No Route: Memor ia unit/kg 6-09 IVP, PRN, l Bolus 07:05: 4,000 Lead (Heparin 00 unit, 4 Dosing mL, Drug Weight) form: INJ, PRN, Heparin Protocol, Start date: 02/21/19 2:05:00 CDT Stop date: 03/23/19 2:04:00 CDT, 30 day heparin 2019-0 No 500 mL, Memoria additive 6- Rate: 16.1 l 25,000 unit 07:05: ml/hr, Herm avis [12 00 Infuse unit/kg/hr] over: 31.1 + Premix hr, Route: Diluent IV, Dosing Dextrose 5% Weight 500 mL 67.1 kg, Total Volume: 500 mL, Start date: 02/21/19 2:05:00 CDT, Duration: 30 day, Stop date: 03/23/19 2:04:00 CDT, 1.79, m2 Heparin 30 0 No Route: Memor ia unit/kg 6-09 IVP, PRN, l Bolus 07:05: 2,000 Lead (Heparin 00 unit, 2 Dosing mL, Drug Weight) form: INJ, PRN, Heparin Protocol, Start date: 02/21/19 2:05:00 CDT Stop date: 03/23/19 2:04:00 CDT, 30 day Heparin 60 2019-0 No Route: Memor ia unit/kg 6-09 IVP, PRN, l Bolus 07:05: 4,000 Lead (Heparin 00 unit, 4 Dosing mL, Drug Weight) form: INJ, PRN, Heparin Protocol, Start date: 02/21/19 2:05:00 CDT Stop date: 03/23/19 2:04:00 CDT, 30 day heparin 2019-0 No 500 mL, Memoria additive 6-09 Rate: 16.1 l 25,000 unit 07:05: ml/hr, Herm avis [12 00 Infuse unit/kg/hr] over: 31.1 + Premix hr, Route: Diluent IV, Dosing Dextrose 5% Weight 500 mL 67.1 kg, Total Volume: 500 mL, Start date: 02/21/19 2:05:00 CDT, Duration: 30 day, Stop date: 03/23/19 2:04:00 CDT, 1.79, m2 Heparin 30 No Route: Memor ia unit/kg 6-09 IVP, PRN, l Bolus 07:05: 2,000 Lead (Heparin 00 unit, 2 Dosing mL, Drug Weight) form: INJ, PRN, Heparin Protocol, Start date: 02/21/19 2:05:00 CDT Stop date: 03/23/19 2:04:00 CDT, 30 day Heparin 60 2019-0 No Route: Memor ia unit/kg 6-09 IVP, PRN, l Bolus 07:05: 4,000 Lead (Heparin 00 unit, 4 Dosing mL, Drug Weight) form: INJ, PRN, Heparin Protocol, Start date: 02/21/19 2:05:00 CDT Stop date: 03/23/19 2:04:00 CDT, 30 day heparin 2019-0 No 500 mL, Memoria additive 6-09 Rate: 16.1 l 25,000 unit 07:05: ml/hr, Herm avis [12 00 Infuse unit/kg/hr] over: 31.1 + Premix hr, Route: Diluent IV, Dosing Dextrose 5% Weight 500 mL 67.1 kg, Total Volume: 500 mL, Start date: 02/21/19 2:05:00 CDT, Duration: 30 day, Stop date: 03/23/19 2:04:00 CDT, 1.79, m2 Heparin 30 No Route: Memor ia unit/kg 6-09 IVP, PRN, l Bolus 07:05: 2,000 Vinnie (Heparin 00 unit, 2 Dosing mL, Drug Weight) form: INJ, PRN, Heparin Protocol, Start date: 02/21/19 2:05:00 CDT Stop date: 03/23/19 2:04:00 CDT, 30 day Heparin 60 No Route: Memor ia unit/kg 6-09 IVP, PRN, l Bolus 07:05: 4,000 Lead (Heparin 00 unit, 4 Dosing mL, Drug Weight) form: INJ, PRN, Heparin Protocol, Start date: 02/21/19 2:05:00 CDT Stop date: 03/23/19 2:04:00 CDT, 30 day heparin No 500 mL, Memoria additive 02-21 Rate: 16.1 l 25,000 unit 07:05: ml/hr, Herm avis [12 00 Infuse unit/kg/hr] over: 31.1 + Premix hr, Route: Diluent IV, Dosing Dextrose 5% Weight 500 mL 67.1 kg, Total Volume: 500 mL, Start date: 02/21/19 2:05:00 CDT, Duration: 30 day, Stop date: 03/23/19 2:04:00 CDT, 1.79, m2 Heparin 30 No Route: Memor ia unit/kg 6-09 IVP, PRN, l Bolus 07:05: 2,000 Vinnie (Heparin 00 unit, 2 Dosing mL, Drug Weight) form: INJ, PRN, Heparin Protocol, Start date: 02/21/19 2:05:00 CDT Stop date: 03/23/19 2:04:00 CDT, 30 day Heparin 60 No Route: Memor ia unit/kg 6-09 IVP, PRN, l Bolus 07:05: 4,000 Lead (Heparin 00 unit, 4 Dosing mL, Drug Weight) form: INJ, PRN, Heparin Protocol, Start date: 02/21/19 2:05:00 CDT Stop date: 03/23/19 2:04:00 CDT, 30 day heparin 2019-0 No 500 mL, Memoria additive 6-09 Rate: 16.1 l 25,000 unit 07:05: ml/hr, Herm avis [12 00 Infuse unit/kg/hr] over: 31.1 + Premix hr, Route: Diluent IV, Dosing Dextrose 5% Weight 500 mL 67.1 kg, Total Volume: 500 mL, Start date: 02/21/19 2:05:00 CDT, Duration: 30 day, Stop date: 03/23/19 2:04:00 CDT, 1.79, m2 Heparin 30 No Route: Memor ia unit/kg 6-09 IVP, PRN, l Bolus 07:05: 2,000 Vinnie (Heparin 00 unit, 2 Dosing mL, Drug Weight) form: INJ, PRN, Heparin Protocol, Start date: 02/21/19 2:05:00 CDT Stop date: 03/23/19 2:04:00 CDT, 30 day Heparin 60 0 No Route: Memor ia unit/kg 6-09 IVP, PRN, l Bolus 07:05: 4,000 Vinnie (Heparin 00 unit, 4 Dosing mL, Drug Weight) form: INJ, PRN, Heparin Protocol, Start date: 02/21/19 2:05:00 CDT Stop date: 03/23/19 2:04:00 CDT, 30 day heparin 2019-0 No 500 mL, Memoria additive 6- Rate: 16.1 l 25,000 unit 07:05: ml/hr, Herm avis [12 00 Infuse unit/kg/hr] over: 31.1 + Premix hr, Route: Diluent IV, Dosing Dextrose 5% Weight 500 mL 67.1 kg, Total Volume: 500 mL, Start date: 02/21/19 2:05:00 CDT, Duration: 30 day, Stop date: 03/23/19 2:04:00 CDT, 1.79, m2 Heparin 30 No Route: Memor ia unit/kg 6-09 IVP, PRN, l Bolus 07:05: 2,000 Vinnie (Heparin 00 unit, 2 Dosing mL, Drug Weight) form: INJ, PRN, Heparin Protocol, Start date: 02/21/19 2:05:00 CDT Stop date: 03/23/19 2:04:00 CDT, 30 day Heparin 60 2019-0 No Route: Memor ia unit/kg 6-09 IVP, PRN, l Bolus 07:05: 4,000 Lead (Heparin 00 unit, 4 Dosing mL, Drug Weight) form: INJ, PRN, Heparin Protocol, Start date: 02/21/19 2:05:00 CDT Stop date: 03/23/19 2:04:00 CDT, 30 day heparin 2019-0 No 500 mL, Memoria additive 6-09 Rate: 16.1 l 25,000 unit 07:05: ml/hr, Herm avis [12 00 Infuse unit/kg/hr] over: 31.1 + Premix hr, Route: Diluent IV, Dosing Dextrose 5% Weight 500 mL 67.1 kg, Total Volume: 500 mL, Start date: 02/21/19 2:05:00 CDT, Duration: 30 day, Stop date: 03/23/19 2:04:00 CDT, 1.79, m2 Heparin 30 2018-0 No Route: Memor ia unit/kg 6-09 IVP, PRN, l Bolus 07:05: 2,000 Vinnie (Heparin 00 unit, 2 Dosing mL, Drug Weight) form: INJ, PRN, Heparin Protocol, Start date: 02/21/19 2:05:00 CDT Stop date: 03/23/19 2:04:00 CDT, 30 day Heparin 60 2019-0 No Route: Memor ia unit/kg 6-09 IVP, PRN, l Bolus 07:05: 4,000 Vinnie (Heparin 00 unit, 4 Dosing mL, Drug Weight) form: INJ, PRN, Heparin Protocol, Start date: 02/21/19 2:05:00 CDT Stop date: 03/23/19 2:04:00 CDT, 30 day heparin 2019-0 No 500 mL, Memoria additive 6-09 Rate: 16.1 l 25,000 unit 07:05: ml/hr, Herm avis [12 00 Infuse unit/kg/hr] over: 31.1 + Premix hr, Route: Diluent IV, Dosing Dextrose 5% Weight 500 mL 67.1 kg, Total Volume: 500 mL, Start date: 02/21/19 2:05:00 CDT, Duration: 30 day, Stop date: 03/23/19 2:04:00 CDT, 1.79, m2 Heparin 30 No Route: Memor ia unit/kg 6-09 IVP, PRN, l Bolus 07:05: 2,000 Vinnie (Heparin 00 unit, 2 Dosing mL, Drug [...] date: 03/23/19 2:04:00 CDT, 30 day heparin 2018- No 500 mL, Memoria additive 02-21 Rate: 16.1 l 25,000 unit 07:05: ml/hr, Herm avis [12 00 Infuse unit/kg/hr] over: 31.1 + Premix hr, Route: Diluent IV, Dosing Dextrose 5% Weight 500 mL 67.1 kg, Total Volume: 500 mL, Start date: 02/21/19 2:05:00 CDT, Duration: 30 day, Stop date: 03/23/19 2:04:00 CDT, 1.79, m2 Heparin 30 No Route: Memor ia unit/kg 6-09 IVP, PRN, l Bolus 07:05: 2,000 Lead (Heparin 00 unit, 2 Dosing mL, Drug [...] date: 03/23/19 2:04:00 CDT, 30 day heparin 2019-0 No 500 mL, Memoria additive 6-09 Rate: 16.1 l 25,000 unit 07:05: ml/hr, Herm avis [12 00 Infuse unit/kg/hr] over: 31.1 + Premix hr, Route: Diluent IV, Dosing Dextrose 5% Weight 500 mL 67.1 kg, Total Volume: 500 mL, Start date: 02/21/19 2:05:00 CDT, Duration: 30 day, Stop date: 03/23/19 2:04:00 CDT, 1.79, m2 Heparin 30 No Route: Memor ia unit/kg 6-09 IVP, PRN, l Bolus 07:05: 2,000 Lead (Heparin 00 unit, 2 Dosing mL, Drug Weight) form: INJ, PRN, Heparin Protocol, Start date: 02/21/19 2:05:00 CDT Stop date: 03/23/19 2:04:00 CDT, 30 day Heparin 60 0 No Route: Memor ia unit/kg 6-09 IVP, PRN, l Bolus 07:05: 4,000 Lead (Heparin 00 unit, 4 Dosing mL, Drug Weight) form: INJ, PRN, Heparin Protocol, Start date: 02/21/19 2:05:00 CDT Stop date: 03/23/19 2:04:00 CDT, 30 day heparin 2019-0 No 500 mL, Memoria additive 6- Rate: 16.1 l 25,000 unit 07:05: ml/hr, Herm avis [12 00 Infuse unit/kg/hr] over: 31.1 + Premix hr, Route: Diluent IV, Dosing Dextrose 5% Weight 500 mL 67.1 kg, Total Volume: 500 mL, Start date: 02/21/19 2:05:00 CDT, Duration: 30 day, Stop date: 03/23/19 2:04:00 CDT, 1.79, m2 Heparin 30 No Route: Memor ia unit/kg 6-09 IVP, PRN, l Bolus 07:05: 2,000 Lead (Heparin 00 unit, 2 Dosing mL, Drug Weight) form: INJ, PRN, Heparin Protocol, Start date: 02/21/19 2:05:00 CDT Stop date: 03/23/19 2:04:00 CDT, 30 day Heparin 60 2019-0 No Route: Memor ia unit/kg 6-09 IVP, PRN, l Bolus 07:05: 4,000 Vinnie (Heparin 00 unit, 4 Dosing mL, Drug Weight) form: INJ, PRN, Heparin Protocol, Start date: 02/21/19 2:05:00 CDT Stop date: 03/23/19 2:04:00 CDT, 30 day heparin 2019-0 No 500 mL, Memoria additive 6-09 Rate: 16.1 l 25,000 unit 07:05: ml/hr, Herm avis [12 00 Infuse unit/kg/hr] over: 31.1 + Premix hr, Route: Diluent IV, Dosing Dextrose 5% Weight 500 mL 67.1 kg, Total Volume: 500 mL, Start date: 02/21/19 2:05:00 CDT, Duration: 30 day, Stop date: 03/23/19 2:04:00 CDT, 1.79, m2 Heparin 30 2018-0 No Route: Memor ia unit/kg 6-09 IVP, PRN, l Bolus 07:05: 2,000 Lead (Heparin 00 unit, 2 Dosing mL, Drug Weight) form: INJ, PRN, Heparin Protocol, Start date: 02/21/19 2:05:00 CDT Stop date: 03/23/19 2:04:00 CDT, 30 day Heparin 60 2019-0 No Route: Memor ia unit/kg 6-09 IVP, PRN, l Bolus 07:05: 4,000 Vinnie (Heparin 00 unit, 4 Dosing mL, Drug Weight) form: INJ, PRN, Heparin Protocol, Start date: 02/21/19 2:05:00 CDT Stop date: 03/23/19 2:04:00 CDT, 30 day heparin 2019-0 No 500 mL, Memoria additive 6-09 Rate: 16.1 l 25,000 unit 07:05: ml/hr, Herm avis [12 00 Infuse unit/kg/hr] over: 31.1 + Premix hr, Route: Diluent IV, Dosing Dextrose 5% Weight 500 mL 67.1 kg, Total Volume: 500 mL, Start date: 02/21/19 2:05:00 CDT, Duration: 30 day, Stop date: 03/23/19 2:04:00 CDT, 1.79, m2 Heparin 30 No Route: Memor ia unit/kg 6-09 IVP, PRN, l Bolus 07:05: 2,000 Vinnie (Heparin 00 unit, 2 Dosing mL, Drug Weight) form: INJ, PRN, Heparin Protocol, Start date: 02/21/19 2:05:00 CDT Stop date: 03/23/19 2:04:00 CDT, 30 day Heparin 60 2018-0 No Route: Memor ia unit/kg 6-09 IVP, PRN, l Bolus 07:05: 4,000 Vinnie (Heparin 00 unit, 4 Dosing mL, Drug Weight) form: INJ, PRN, Heparin Protocol, Start date: 02/21/19 2:05:00 CDT Stop date: 03/23/19 2:04:00 CDT, 30 day heparin 2019- No 500 mL, Memoria additive 02-21 Rate: 16.1 l 25,000 unit 07:05: ml/hr, Herm avis [12 00 Infuse unit/kg/hr] over: 31.1 + Premix hr, Route: Diluent IV, Dosing Dextrose 5% Weight 500 mL 67.1 kg, Total Volume: 500 mL, Start date: 02/21/19 2:05:00 CDT, Duration: 30 day, Stop date: 03/23/19 2:04:00 CDT, 1.79, m2 Heparin 30 No Route: Memor ia unit/kg 6-09 IVP, PRN, l Bolus 07:05: 2,000 Lead (Heparin 00 unit, 2 Dosing mL, Drug Weight) form: INJ, PRN, Heparin Protocol, Start date: 02/21/19 2:05:00 CDT Stop date: 03/23/19 2:04:00 CDT, 30 day Heparin 60 2018- No Route: Memor ia unit/kg 6-09 IVP, PRN, l Bolus 07:05: 4,000 Lead (Heparin 00 unit, 4 Dosing mL, Drug Weight) form: INJ, PRN, Heparin Protocol, Start date: 02/21/19 2:05:00 CDT Stop date: 03/23/19 2:04:00 CDT, 30 day heparin 2019-0 No 500 mL, Memoria additive 6-09 Rate: 16.1 l 25,000 unit 07:05: ml/hr, Herm avis [12 00 Infuse unit/kg/hr] over: 31.1 + Premix hr, Route: Diluent IV, Dosing Dextrose 5% Weight 500 mL 67.1 kg, Total Volume: 500 mL, Start date: 02/21/19 2:05:00 CDT, Duration: 30 day, Stop date: 03/23/19 2:04:00 CDT, 1.79, m2 Heparin 30 No Route: Memor ia unit/kg 6-09 IVP, PRN, l Bolus 07:05: 2,000 Lead (Heparin 00 unit, 2 Dosing mL, Drug Weight) form: INJ, PRN, Heparin Protocol, Start date: 02/21/19 2:05:00 CDT Stop date: 03/23/19 2:04:00 CDT, 30 day Heparin 60 0 No Route: Memor ia unit/kg 6-09 IVP, PRN, l Bolus 07:05: 4,000 Lead (Heparin 00 unit, 4 Dosing mL, Drug Weight) form: INJ, PRN, Heparin Protocol, Start date: 02/21/19 2:05:00 CDT Stop date: 03/23/19 2:04:00 CDT, 30 day heparin 2019-0 No 500 mL, Memoria additive 6- Rate: 16.1 l 25,000 unit 07:05: ml/hr, Herm avis [12 00 Infuse unit/kg/hr] over: 31.1 + Premix hr, Route: Diluent IV, Dosing Dextrose 5% Weight 500 mL 67.1 kg, Total Volume: 500 mL, Start date: 02/21/19 2:05:00 CDT, Duration: 30 day, Stop date: 03/23/19 2:04:00 CDT, 1.79, m2 Heparin 30 No Route: Memor ia unit/kg 6-09 IVP, PRN, l Bolus 07:05: 2,000 Vinnie (Heparin 00 unit, 2 Dosing mL, Drug Weight) form: INJ, PRN, Heparin Protocol, Start date: 02/21/19 2:05:00 CDT Stop date: 03/23/19 2:04:00 CDT, 30 day Heparin 60 2019-0 No Route: Memor ia unit/kg 6-09 IVP, PRN, l Bolus 07:05: 4,000 Lead (Heparin 00 unit, 4 Dosing mL, Drug Weight) form: INJ, PRN, Heparin Protocol, Start date: 02/21/19 2:05:00 CDT Stop date: 03/23/19 2:04:00 CDT, 30 day heparin 2019-0 No 500 mL, Memoria additive 6- Rate: 16.1 l 25,000 unit 07:05: ml/hr, Herm avis [12 00 Infuse unit/kg/hr] over: 31.1 + Premix hr, Route: Diluent IV, Dosing Dextrose 5% Weight 500 mL 67.1 kg, Total Volume: 500 mL, Start date: 02/21/19 2:05:00 CDT, Duration: 30 day, Stop date: 03/23/19 2:04:00 CDT, 1.79, m2 Heparin 30 2018-0 No Route: Memor ia unit/kg 6-09 IVP, PRN, l Bolus 07:05: 2,000 Vinnie (Heparin 00 unit, 2 Dosing mL, Drug Weight) form: INJ, PRN, Heparin Protocol, Start date: 02/21/19 2:05:00 CDT Stop date: 03/23/19 2:04:00 CDT, 30 day Heparin 60 2019-0 No Route: Memor ia unit/kg 6-09 IVP, PRN, l Bolus 07:05: 4,000 Lead (Heparin 00 unit, 4 Dosing mL, Drug Weight) form: INJ, PRN, Heparin Protocol, Start date: 02/21/19 2:05:00 CDT Stop date: 03/23/19 2:04:00 CDT, 30 day heparin 2019-0 No 500 mL, Memoria additive 6- Rate: 16.1 l 25,000 unit 07:05: ml/hr, Herm avis [12 00 Infuse unit/kg/hr] over: 31.1 + Premix hr, Route: Diluent IV, Dosing Dextrose 5% Weight 500 mL 67.1 kg, Total Volume: 500 mL, Start date: 02/21/19 2:05:00 CDT, Duration: 30 day, Stop date: 03/23/19 2:04:00 CDT, 1.79, m2 Heparin 30 No Route: Memor ia unit/kg 6-09 IVP, PRN, l Bolus 07:05: 2,000 Vinnie (Heparin 00 unit, 2 Dosing mL, Drug [...] date: 03/23/19 2:04:00 CDT, 30 day heparin No 500 mL, Memoria additive 02-21 Rate: 16.1 l 25,000 unit 07:05: ml/hr, Herm avis [12 00 Infuse unit/kg/hr] over: 31.1 + Premix hr, Route: Diluent IV, Dosing Dextrose 5% Weight 500 mL 67.1 kg, Total Volume: 500 mL, Start date: 02/21/19 2:05:00 CDT, Duration: 30 day, Stop date: 03/23/19 2:04:00 CDT, 1.79, m2 Tylenol No Notes: Max Semaj shashi 6-09 acetaminop l 06:51: hen = 4000 Lead 00 mg/day (4 gm/day). (Same as: Tylenol) Tylenol No Notes: Max Semaj shashi 6-09 acetaminop l 06:51: hen = 4000 Lead 00 mg/day (4 gm/day). (Same as: Tylenol) Tylenol No Notes: Max Semaj shashi 6-09 acetaminop l 06:51: hen = 4000 Lead 00 mg/day (4 gm/day). (Same as: Tylenol) Tylenol No Notes: Max Semaj shashi 6-09 acetaminop l 06:51: hen = 4000 Vinnie 00 mg/day (4 gm/day). (Same as: Tylenol) Tylenol No Notes: Max Semaj shashi 6-09 acetaminop l 06:51: hen = 4000 Vinnie 00 mg/day (4 gm/day). (Same as: Tylenol) Tylenol 0 No Notes: Max Semaj shashi 6-09 acetaminop l 06:51: hen = 4000 Lead 00 mg/day (4 gm/day). (Same as: Tylenol) Tylenol No Notes: Max Semaj shashi 6-09 acetaminop l 06:51: hen = 4000 Vinnie 00 mg/day (4 gm/day). (Same as: Tylenol) Tylenol 0 No Notes: Max Semaj shashi 6-09 acetaminop l 06:51: hen = 4000 Vinnie 00 mg/day (4 gm/day). (Same as: Tylenol) Tylenol No Notes: Max Semaj shashi 6-09 acetaminop l 06:51: hen = 4000 Vinnie 00 mg/day (4 gm/day). (Same as: Tylenol) Tylenol No Notes: Max Semaj shashi 6-09 acetaminop l 06:51: hen = 4000 Vinnie 00 mg/day (4 gm/day). (Same as: Tylenol) Tylenol No Notes: Max Semaj shashi 6-09 acetaminop l 06:51: hen = 4000 Vinnie 00 mg/day (4 gm/day). (Same as: Tylenol) Tylenol No Notes: Max Semaj shashi 6-09 acetaminop l 06:51: hen = 4000 Vinnie 00 mg/day (4 gm/day). (Same as: Tylenol) Tylenol 0 No Notes: Max Semaj shashi 6-09 acetaminop l 06:51: hen = 4000 Lead 00 mg/day (4 gm/day). (Same as: Tylenol) Tylenol 0 No Notes: Max Semaj shashi 6-09 acetaminop l 06:51: hen = 4000 Lead 00 mg/day (4 gm/day). (Same as: Tylenol) Tylenol 0 No Notes: Max Semaj shashi 6-09 acetaminop l 06:51: hen = 4000 Lead 00 mg/day (4 gm/day). (Same as: Tylenol) Tylenol 0 No Notes: Max Semaj shashi 6-09 acetaminop l 06:51: hen = 4000 Lead 00 mg/day (4 gm/day). (Same as: Tylenol) Tylenol 0 No Notes: Max Semaj shashi 6-09 acetaminop l 06:51: hen = 4000 Vinnie 00 mg/day (4 gm/day). (Same as: Tylenol) Tylenol No Notes: Max Semaj shashi 6-09 acetaminop l 06:51: hen = 4000 Vinnie 00 mg/day (4 gm/day). (Same as: Tylenol) Tylenol No Notes: Max Semaj shashi 6-09 acetaminop l 06:51: hen = 4000 Vinnie 00 mg/day (4 gm/day). (Same as: Tylenol) Tylenol No Notes: Max Semaj shashi 6-09 acetaminop l 06:51: hen = 4000 Vinnie 00 mg/day (4 gm/day). (Same as: Tylenol) Tylenol No Notes: Max Semaj shashi 6-09 acetaminop l 06:51: hen = 4000 Lead 00 mg/day (4 gm/day). (Same as: Tylenol) Tylenol No Notes: Max Semaj shashi 6-09 acetaminop l 06:51: hen = 4000 Vinnie 00 mg/day (4 gm/day). (Same as: Tylenol) Tylenol No Notes: Max Semaj shashi 6-09 acetaminop l 06:51: hen = 4000 Vinnie 00 mg/day (4 gm/day). (Same as: Tylenol) Tylenol 0 No Notes: Max Semaj shashi 6-09 acetaminop l 06:51: hen = 4000 Vinnie 00 mg/day (4 gm/day). (Same as: Tylenol) Tylenol 0 No Notes: Max Semaj shashi 6-09 acetaminop l 06:51: hen = 4000 Lead 00 mg/day (4 gm/day). (Same as: Tylenol) Tylenol 0 No Notes: Max Semaj shashi 6-09 acetaminop l 06:51: hen = 4000 Vinnie 00 mg/day (4 gm/day). (Same as: Tylenol) Tylenol 2018- No Notes: Max Semaj shashi 6-09 acetaminop l 06:51: hen = 4000 Lead 00 mg/day (4 gm/day). (Same as: Tylenol) Coumadin No 5 mg, PO, Semaj shashi 6-09 QPM, every l 06:27: M,W,F, 0 Lead 00 Refill(s) isosorbide No 20 mg = 1 Me moria dinitrate 6-09 tab, PO, l 20 mg oral 06:27: BID, 0 Salma nn tablet 00 Refill(s) Warfarin No 2.5 mg = 1 Mem oria Sodium 2.5 6-09 tab, PO, l MG Oral 06:27: QPM, every Herm avis Tablet 00 T, , Sa, [Coumadin] 0 Refill(s) Tylenol No 650 mg, Memoria 6-09 PO, Q6H, l 06:27: PRN fever, Vinnie 00 0 Refill(s) Glipizide 5 No 5 mg = 1 Me moria MG Oral 6-09 tab, PO, l Tablet 06:27: Daily, 0 Lead 00 Refill(s) Acetaminoph Yes 1 tab, PO, Memoria en 325 MG / 6-09 Q6H, PRN l Hydrocodone 06:27: for pain, H ermann Bitartrate 00 0 5 MG Oral Refill(s) Tablet [Virgil 5/325] Coumadin No 5 mg, PO, Semaj shashi 6-09 QPM, every l 06:27: M,W,F, 0 Vinnie 00 Refill(s) isosorbide No 20 mg = 1 Me moria dinitrate 6-09 tab, PO, l 20 mg oral 06:27: BID, 0 Salma nn tablet 00 Refill(s) Warfarin No 2.5 mg = 1 Mem oria Sodium 2.5 6-09 tab, PO, l MG Oral 06:27: QPM, every Herm avis Tablet 00 T, , Sa, [Coumadin] 0 Refill(s) Tylenol No 650 mg, Memoria 6-09 PO, Q6H, l 06:27: PRN fever, Vinnie 00 0 Refill(s) Glipizide 5 No 5 mg = 1 Me moria MG Oral 6-09 tab, PO, l Tablet 06:27: Daily, 0 Lead 00 Refill(s) Acetaminoph Yes 1 tab, PO, Memoria en 325 MG / 6-09 Q6H, PRN l Hydrocodone 06:27: for pain, H ermann Bitartrate 00 0 5 MG Oral Refill(s) Tablet [Virgil 5/325] 60 ACTUAT No 90 Memoria Budesonide 6- microgram l 0.08 06:27: =, Lead MG/ACTUAT 00 INHALATION Dry Powder , Bedtime, Inhaler please [Pulmicort] clarify dose, 0 Refill(s) gabapentin No 200 mg, Semaj shashi 6- PO, Q8H, 0 l 06:27: Refill(s) Vinnie 00 bisacodyl 5 No 10 mg = 2 M emoria mg oral 6-09 tab, PO, l enteric 06:27: Daily, PRN Herm avis coated 00 Constipati tablet on, # 20 tab, 0 Refill(s) Furosemide No 20 mg = 1 Me moria 20 MG Oral 6-09 tab, PO, l Tablet 06:27: Daily, # Vinnie 00 30 tab, 0 Refill(s) atorvastati Yes 10 mg = 1 M emoria n 10 mg 6-09 tab, PO, l oral tablet 06:27: Bedtime, # Lead 00 90 tab, 1 Refill(s) Aspirin 81 Yes 81 mg = 1 Me moria MG Enteric 6-09 tab, PO, l Coated 06:27: Daily, # Lead Tablet 00 90 tab, 3 Refill(s) ascorbic No 500 mg, Memori a acid 6-09 PO, Daily, l 06:27: 0 Lead 00 Refill(s) Fluticasone No = 1 puff, M emoria propionate 6-09 INHALATION l 0.1 06:27: , Daily, # Vinnie MG/ACTUAT 00 120 ea, 0 Dry Powder Refill(s) Inhaler Potassium 2018- No See Memoria gluconate 02-21 Instructio l 06:27: ns, please Lead 00 clarify order p.o. BID, 0 Refill(s) 0.4 ML No 40 mg, Memoria Enoxaparin 02-21 SUB-Q, l sodium 100 06:27: Daily, # 7 H ermann MG/ML 00 ea, 0 Prefilled Refill(s) Syringe [Lovenox] Lake-3 No 1,000 mg = Semaj shashi 1000 mg 02-21 1 cap, PO, l oral 06:27: Daily, 0 Lead capsule 00 Refill(s) amLODIPine No 5 mg = 1 Mem oria 5 mg oral 02-21 tab, PO, l tablet 06:27: Daily, # Lead 00 30 tab, 0 Refill(s) Docusate No 2 tab, PO, Mem oria Sodium 50 02-21 BID, # 14 l MG / 06:27: tab, 0 Vinnie sennosides, 00 Refill(s) LONG-TERM 8.6 MG Oral Tablet Multi No 0 Memoria Vitamin+ 02-21 Refill(s) l 06:27: Lead 00 montelukast No 10 mg = 1 M emoria 10 mg oral 02-21 tab, PO, l tablet 06:27: Bedtime, # Salma nn 00 30 tab, 0 Refill(s) Rocephin 1 No IV, Daily, M emoria g injection 02-21 0 l 06:27: Refill(s) Lead 00 melatonin 3 2018- No 3 mg = 1 Me moria mg oral 02-21 tab, PO, l tablet 06:27: Bedtime, Lead 00 PRN for insomnia, # 60 tab, 0 Refill(s) carvedilol No 6.25 mg = Me moria 6.25 mg 02-21 1 tab, PO, l oral tablet 06:27: BID, # 180 Vinnie 00 tab, 0 Refill(s) Albuterol Yes 3 mL, NEB, Me moria 0.833 MG/ML 02-21 Q4H, PRN l / 06:27: shortness Vinnie Ipratropium 00 of breath, Recluse 0 0.167 MG/ML Refill(s) Inhalant Solution [DuoNeb] Magnesium No 400 mg = 1 Me moria Oxide 6-09 tab, PO, l 06:27: Bedtime, # Vinnie 00 20 tab, 0 Refill(s) Lidocaine No 1 patch, Semaj shashi 0.05 MG/MG 6-09 TOP, l Transdermal 06:27: Daily, Herm avis Patch 00 left knee remove patches after 12 hours, 0 Refill(s) Thyroxine Yes 112 Memoria 6-09 microgram, l 06:27: PO, Daily, Lead 00 0 Refill(s) 60 ACTUAT No 90 Memoria Budesonide 6-09 microgram l 0.08 06:27: =, Lead MG/ACTUAT 00 INHALATION Dry Powder , Bedtime, Inhaler please [Pulmicort] clarify dose, 0 Refill(s) gabapentin No 200 mg, Semaj shashi 6-09 PO, Q8H, 0 l 06:27: Refill(s) Vinnie 00 bisacodyl 5 No 10 mg = 2 M emoria mg oral 6-09 tab, PO, l enteric 06:27: Daily, PRN Herm avis coated 00 Constipati tablet on, # 20 tab, 0 Refill(s) Furosemide No 20 mg = 1 Me moria 20 MG Oral 6-09 tab, PO, l Tablet 06:27: Daily, # Lead 00 30 tab, 0 Refill(s) atorvastati Yes 10 mg = 1 M emoria n 10 mg 6-09 tab, PO, l oral tablet 06:27: Bedtime, # Vinnie 00 90 tab, 1 Refill(s) Aspirin 81 Yes 81 mg = 1 Me moria MG Enteric 6-09 tab, PO, l Coated 06:27: Daily, # Lead Tablet 00 90 tab, 3 Refill(s) Coumadin No 5 mg, PO, Semaj shashi 6-09 QPM, every l 06:27: M,W,F, 0 Lead 00 Refill(s) isosorbide No 20 mg = 1 Me moria dinitrate 6-09 tab, PO, l 20 mg oral 06:27: BID, 0 Salma nn tablet 00 Refill(s) Warfarin No 2.5 mg = 1 Mem oria Sodium 2.5 6- tab, PO, l MG Oral 06:27: QPM, every Herm avis Tablet 00 T, , Sa, [Coumadin] 0 Refill(s) Tylenol No 650 mg, Memoria 6-09 PO, Q6H, l 06:27: PRN fever, Lead 00 0 Refill(s) Glipizide 5 No 5 mg = 1 Me moria MG Oral 6-09 tab, PO, l Tablet 06:27: Daily, 0 Vinnie 00 Refill(s) Acetaminoph Yes 1 tab, PO, Memoria en 325 MG / 6 Q6H, PRN l Hydrocodone 06:27: for pain, H ermann Bitartrate 00 0 5 MG Oral Refill(s) Tablet [Virgil 5/325] 60 ACTUAT No 90 Memoria Budesonide 6-09 microgram l 0.08 06:27: =, Vinnie MG/ACTUAT 00 INHALATION Dry Powder , Bedtime, Inhaler please [Pulmicort] clarify dose, 0 Refill(s) gabapentin No 200 mg, Semaj shashi 6-09 PO, Q8H, 0 l 06:27: Refill(s) Vinnie 00 bisacodyl 5 No 10 mg = 2 M emoria mg oral 6-09 tab, PO, l enteric 06:27: Daily, PRN Herm avis coated 00 Constipati tablet on, # 20 tab, 0 Refill(s) Furosemide No 20 mg = 1 Me moria 20 MG Oral 6-09 tab, PO, l Tablet 06:27: Daily, # Lead 00 30 tab, 0 Refill(s) atorvastati Yes 10 mg = 1 M emoria n 10 mg 6-09 tab, PO, l oral tablet 06:27: Bedtime, # Vinnie 00 90 tab, 1 Refill(s) Aspirin 81 Yes 81 mg = 1 Me moria MG Enteric 6-09 tab, PO, l Coated 06:27: Daily, # Lead Tablet 00 90 tab, 3 Refill(s) ascorbic No 500 mg, Memori a acid 02-21 PO, Daily, l 06:27: 0 Lead 00 Refill(s) Fluticasone No = 1 puff, M emoria propionate 02-21 INHALATION l 0.1 06:27: , Daily, # Lead MG/ACTUAT 00 120 ea, 0 Dry Powder Refill(s) Inhaler Potassium No See Memoria gluconate 02-21 Instructio l 06:27: ns, please Vinnie 00 clarify order p.o. BID, 0 Refill(s) 0.4 ML No 40 mg, Memoria Enoxaparin 02-21 SUB-Q, l sodium 100 06:27: Daily, # 7 H ermann MG/ML 00 ea, 0 Prefilled Refill(s) Syringe [Lovenox] Lake-3 No 1,000 mg = Semja shashi 1000 mg 02-21 1 cap, PO, l oral 06:27: Daily, 0 Lead capsule 00 Refill(s) amLODIPine No 5 mg = 1 Mem oria 5 mg oral 02-21 tab, PO, l tablet 06:27: Daily, # Vinnie 00 30 tab, 0 Refill(s) Docusate No 2 tab, PO, Mem oria Sodium 50 6 BID, # 14 l MG / 06:27: tab, 0 Vinnie sennosides, 00 Refill(s) LONG-TERM 8.6 MG Oral Tablet Multi No 0 Memoria Vitamin+ 02-21 Refill(s) l 06:27: Lead 00 montelukast No 10 mg = 1 M emoria 10 mg oral 09 tab, PO, l tablet 06:27: Bedtime, # Salma nn 00 30 tab, 0 Refill(s) Rocephin 1 No IV, Daily, M emoria g injection 09 0 l 06:27: Refill(s) Lead 00 melatonin 3 No 3 mg = 1 Me moria mg oral 6-09 tab, PO, l tablet 06:27: Bedtime, Vinnie 00 PRN for insomnia, # 60 tab, 0 Refill(s) carvedilol No 6.25 mg = Me moria 6.25 mg 6-09 1 tab, PO, l oral tablet 06:27: BID, # 180 Vinnie 00 tab, 0 Refill(s) Albuterol Yes 3 mL, NEB, Me moria 0.833 MG/ML 02-21 Q4H, PRN l / 06:27: shortness Vinnie Ipratropium 00 of breath, Recluse 0 0.167 MG/ML Refill(s) Inhalant Solution [DuoNeb] Magnesium No 400 mg = 1 Me moria Oxide - tab, PO, l 06:27: Bedtime, # Vinnie 00 20 tab, 0 Refill(s) Lidocaine No 1 patch, Semaj shashi 0.05 MG/MG 02-21 TOP, l Transdermal 06:27: Daily, Herm avis Patch 00 left knee remove patches after 12 hours, 0 Refill(s) Thyroxine Yes 112 Memoria 02-21 microgram, l 06:27: PO, Daily, Vinnie 00 0 Refill(s) ascorbic No 500 mg, Memori a acid 02-21 PO, Daily, l 06:27: 0 Vinnie 00 Refill(s) Fluticasone No = 1 puff, M emoria propionate 02-21 INHALATION l 0.1 06:27: , Daily, # Vinnie MG/ACTUAT 00 120 ea, 0 Dry Powder Refill(s) Inhaler Potassium No See Memoria gluconate 02-21 Instructio l 06:27: ns, please Vinnie 00 clarify order p.o. BID, 0 Refill(s) 0.4 ML No 40 mg, Memoria Enoxaparin 02-21 SUB-Q, l sodium 100 06:27: Daily, # 7 H ermann MG/ML 00 ea, 0 Prefilled Refill(s) Syringe [Lovenox] Lake-3 No 1,000 mg = Semaj shashi 1000 mg 02-21 1 cap, PO, l oral 06:27: Daily, 0 Vinnie capsule 00 Refill(s) amLODIPine No 5 mg = 1 Mem oria 5 mg oral 02-21 tab, PO, l tablet 06:27: Daily, # Lead 00 30 tab, 0 Refill(s) Coumadin No 5 mg, PO, Semaj shashi 6-09 QPM, every l 06:27: M,W,F, 0 Lead 00 Refill(s) isosorbide No 20 mg = 1 Me moria dinitrate 6-09 tab, PO, l 20 mg oral 06:27: BID, 0 Salma nn tablet 00 Refill(s) Warfarin No 2.5 mg = 1 Mem oria Sodium 2.5 6-09 tab, PO, l MG Oral 06:27: QPM, every Herm avis Tablet 00 , , , [Coumadin] 0 Refill(s) Tylenol No 650 mg, Memoria 6- PO, Q6H, l 06:27: PRN fever, Vinnie 00 0 Refill(s) Glipizide 5 No 5 mg = 1 Me moria MG Oral 6-09 tab, PO, l Tablet 06:27: Daily, 0 Lead 00 Refill(s) Acetaminoph Yes 1 tab, PO, Memoria en 325 MG / 609 Q6H, PRN l Hydrocodone 06:27: for pain, H ermann Bitartrate 00 0 5 MG Oral Refill(s) Tablet [Virgil 5/325] 60 ACTUAT No 90 Memoria Budesonide 609 microgram l 0.08 06:27: =, Lead MG/ACTUAT 00 INHALATION Dry Powder , Bedtime, Inhaler please [Pulmicort] clarify dose, 0 Refill(s) gabapentin No 200 mg, Semaj shashi 6-09 PO, Q8H, 0 l 06:27: Refill(s) Lead 00 bisacodyl 5 No 10 mg = 2 M emoria mg oral 6-09 tab, PO, l enteric 06:27: Daily, PRN Herm avis coated 00 Constipati tablet on, # 20 tab, 0 Refill(s) Furosemide No 20 mg = 1 Me moria 20 MG Oral 6-09 tab, PO, l Tablet 06:27: Daily, # Lead 00 30 tab, 0 Refill(s) atorvastati Yes 10 mg = 1 M emoria n 10 mg 6-09 tab, PO, l oral tablet 06:27: Bedtime, # Vinnie 00 90 tab, 1 Refill(s) Aspirin 81 2019- Yes 81 mg = 1 Me moria MG Enteric 6-09 tab, PO, l Coated 06:27: Daily, # Vinnie Tablet 00 90 tab, 3 Refill(s) ascorbic 2018- No 500 mg, Memori a acid 6- PO, Daily, l 06:27: 0 Vinnie 00 Refill(s) Fluticasone No = 1 puff, M emoria propionate 6 INHALATION l 0.1 06:27: , Daily, # Vinnie MG/ACTUAT 00 120 ea, 0 Dry Powder Refill(s) Inhaler Potassium No See Memoria gluconate 02-21 Instructio l 06:27: ns, please Lead 00 clarify order p.o. BID, 0 Refill(s) 0.4 ML No 40 mg, Memoria Enoxaparin 02-21 SUB-Q, l sodium 100 06:27: Daily, # 7 H ermann MG/ML 00 ea, 0 Prefilled Refill(s) Syringe [Lovenox] Lake-3 No 1,000 mg = Semaj shashi 1000 mg 02-21 1 cap, PO, l oral 06:27: Daily, 0 Vinnie capsule 00 Refill(s) amLODIPine No 5 mg = 1 Mem oria 5 mg oral 02-21 tab, PO, l tablet 06:27: Daily, # Vinnie 00 30 tab, 0 Refill(s) Docusate No 2 tab, PO, Mem oria Sodium 50 6 BID, # 14 l MG / 06:27: tab, 0 Lead sennosides, 00 Refill(s) LONG-TERM 8.6 MG Oral Tablet Multi No 0 Memoria Vitamin+ 609 Refill(s) l 06:27: Lead 00 montelukast No 10 mg = 1 M emoria 10 mg oral 02-21 tab, PO, l tablet 06:27: Bedtime, # Salma nn 00 30 tab, 0 Refill(s) Rocephin 1 No IV, Daily, M emoria g injection 09 0 l 06:27: Refill(s) Vinnie 00 melatonin 3 No 3 mg = 1 Me moria mg oral 02-21 tab, PO, l tablet 06:27: Bedtime, Lead PRN for insomnia, # 60 tab, 0 Refill(s) carvedilol No 6.25 mg = Me moria 6.25 mg 02-21 1 tab, PO, l oral tablet 06:27: BID, # 180 Lead 00 tab, 0 Refill(s) Albuterol Yes 3 mL, NEB, Me moria 0.833 MG/ML 02-21 Q4H, PRN l / 06:27: shortness Lead Ipratropium 00 of breath, Recluse 0 0.167 MG/ML Refill(s) Inhalant Solution [DuoNeb] Magnesium No 400 mg = 1 Me moria Oxide - tab, PO, l 06:27: Bedtime, # Vinnie 00 20 tab, 0 Refill(s) Lidocaine No 1 patch, Semaj shashi 0.05 MG/MG 02-21 TOP, l Transdermal 06:27: Daily, Herm avsi Patch 00 left knee remove patches after 12 hours, 0 Refill(s) Thyroxine Yes 112 Memoria 02-21 microgram, l 06:27: PO, Daily, Vinnie 00 0 Refill(s) Docusate No 2 tab, PO, Mem oria Sodium 50 6 BID, # 14 l MG / 06:27: tab, 0 Vinnie sennosides, 00 Refill(s) LONG-TERM 8.6 MG Oral Tablet Multi No 0 Memoria Vitamin+ 02-21 Refill(s) l 06:27: Lead 00 montelukast No 10 mg = 1 M emoria 10 mg oral 02-21 tab, PO, l tablet 06:27: Bedtime, # Salma nn 00 30 tab, 0 Refill(s) Rocephin 1 No IV, Daily, M emoria g injection 09 0 l 06:27: Refill(s) Vinnie melatonin 3 No 3 mg = 1 Me moria mg oral 609 tab, PO, l tablet 06:27: Bedtime, Lead 00 PRN for insomnia, # 60 tab, 0 Refill(s) carvedilol No 6.25 mg = Me moria 6.25 mg 6-09 1 tab, PO, l oral tablet 06:27: BID, # 180 Lead 00 tab, 0 Refill(s) Coumadin No 5 mg, PO, Semaj shashi 6-09 QPM, every l 06:27: M,W,F, 0 Lead 00 Refill(s) isosorbide No 20 mg = 1 Me moria dinitrate 6-09 tab, PO, l 20 mg oral 06:27: BID, 0 Salma nn tablet 00 Refill(s) Warfarin No 2.5 mg = 1 Mem oria Sodium 2.5 6-09 tab, PO, l MG Oral 06:27: QPM, every Herm avis Tablet 00 T, , Sa, [Coumadin] 0 Refill(s) Tylenol No 650 mg, Memoria 6-09 PO, Q6H, l 06:27: PRN fever, Lead 00 0 Refill(s) Glipizide 5 No 5 mg = 1 Me moria MG Oral 609 tab, PO, l Tablet 06:27: Daily, 0 Lead 00 Refill(s) Acetaminoph Yes 1 tab, PO, Memoria en 325 MG / 609 Q6H, PRN l Hydrocodone 06:27: for pain, H ermann Bitartrate 00 0 5 MG Oral Refill(s) Tablet [Virgil 5/325] 60 ACTUAT No 90 Memoria Budesonide 6-09 microgram l 0.08 06:27: =, Lead MG/ACTUAT 00 INHALATION Dry Powder , Bedtime, Inhaler please [Pulmicort] clarify dose, 0 Refill(s) gabapentin No 200 mg, Semaj shashi 6-09 PO, Q8H, 0 l 06:27: Refill(s) Vinnie 00 bisacodyl 5 No 10 mg = 2 M emoria mg oral 6-09 tab, PO, l enteric 06:27: Daily, PRN Herm avis coated 00 Constipati tablet on, # 20 tab, 0 Refill(s) Furosemide No 20 mg = 1 Me moria 20 MG Oral 6-09 tab, PO, l Tablet 06:27: Daily, # Vinnie 00 30 tab, 0 Refill(s) atorvastati Yes 10 mg = 1 M emoria n 10 mg 6-09 tab, PO, l oral tablet 06:27: Bedtime, # Lead 00 90 tab, 1 Refill(s) Aspirin 81 2019 Yes 81 mg = 1 Me moria MG Enteric 6- tab, PO, l Coated 06:27: Daily, # Vinnie Tablet 00 90 tab, 3 Refill(s) ascorbic No 500 mg, Memori a acid 6- PO, Daily, l 06:27: 0 Lead 00 Refill(s) Fluticasone No = 1 puff, M emoria propionate - INHALATION l 0.1 06:27: , Daily, # Lead MG/ACTUAT 00 120 ea, 0 Dry Powder Refill(s) Inhaler Potassium No See Memoria gluconate 02-21 Instructio l 06:27: ns, please Lead clarify order p.o. BID, 0 Refill(s) 0.4 ML No 40 mg, Memoria Enoxaparin 02-21 SUB-Q, l sodium 100 06:27: Daily, # 7 H ermann MG/ML 00 ea, 0 Prefilled Refill(s) Syringe [Lovenox] Lake-3 No 1,000 mg = Semaj shashi 1000 mg 02-21 1 cap, PO, l oral 06:27: Daily, 0 Lead capsule 00 Refill(s) amLODIPine No 5 mg = 1 Mem oria 5 mg oral -09 tab, PO, l tablet 06:27: Daily, # Lead 00 30 tab, 0 Refill(s) Docusate No 2 tab, PO, Mem oria Sodium 50 6- BID, # 14 l MG / 06:27: tab, 0 Lead sennosides, 00 Refill(s) LONG-TERM 8.6 MG Oral Tablet Multi No 0 Memoria Vitamin+ 6-09 Refill(s) l 06:27: Lead 00 montelukast No 10 mg = 1 M emoria 10 mg oral 6-09 tab, PO, l tablet 06:27: Bedtime, # Salma nn 00 30 tab, 0 Refill(s) Rocephin 1 No IV, Daily, Malathi esteban g injection 02-21 0 l 06:27: Refill(s) Vinnie 00 melatonin 3 2019- No 3 mg = 1 Me moria mg oral 02-21 tab, PO, l tablet 06:27: Bedtime, Vinnie 00 PRN for insomnia, # 60 tab, 0 Refill(s) carvedilol No 6.25 mg = Me moria 6.25 mg 02-21 1 tab, PO, l oral tablet 06:27: BID, # 180 Vinnie 00 tab, 0 Refill(s) Albuterol Yes 3 mL, NEB, Me moria 0.833 MG/ML 02-21 Q4H, PRN l / 06:27: shortness Lead Ipratropium 00 of breath, Recluse 0 0.167 MG/ML Refill(s) Inhalant Solution [DuoNeb] Magnesium No 400 mg = 1 Me moria Oxide 6-09 tab, PO, l 06:27: Bedtime, # Vinnie 00 20 tab, 0 Refill(s) Lidocaine No 1 patch, Semaj shashi 0.05 MG/MG 6-09 TOP, l Transdermal 06:27: Daily, Herm aivs Patch 00 left knee remove patches after 12 hours, 0 Refill(s) Thyroxine Yes 112 Memoria 6- microgram, l 06:27: PO, Daily, Vinnie 00 0 Refill(s) Albuterol Yes 3 mL, NEB, Me moria 0.833 MG/ML 02-21 Q4H, PRN l / 06:27: shortness Vinnie Ipratropium 00 of breath, Recluse 0 0.167 MG/ML Refill(s) Inhalant Solution [DuoNeb] Magnesium No 400 mg = 1 Me moria Oxide 6-09 tab, PO, l 06:27: Bedtime, # Lead 00 20 tab, 0 Refill(s) Lidocaine No 1 patch, Semaj shashi 0.05 MG/MG 6-09 TOP, l Transdermal 06:27: Daily, Herm avis Patch 00 left knee remove patches after 12 hours, 0 Refill(s) Thyroxine Yes 112 Memoria 6-09 microgram, l 06:27: PO, Daily, Lead 00 0 Refill(s) Coumadin No 5 mg, PO, Semaj shashi 6-09 QPM, every l 06:27: M,W,F, 0 Lead 00 Refill(s) isosorbide No 20 mg = 1 Me moria dinitrate 6-09 tab, PO, l 20 mg oral 06:27: BID, 0 Salma nn tablet 00 Refill(s) Warfarin No 2.5 mg = 1 Mem oria Sodium 2.5 6-09 tab, PO, l MG Oral 06:27: QPM, every Herm avis Tablet 00 , , , [Coumadin] 0 Refill(s) Tylenol No 650 mg, Memoria 6-09 PO, Q6H, l 06:27: PRN fever, Lead 00 0 Refill(s) Glipizide 5 No 5 mg = 1 Me moria MG Oral 6-09 tab, PO, l Tablet 06:27: Daily, 0 Lead 00 Refill(s) Acetaminoph Yes 1 tab, PO, Memoria en 325 MG / 6-09 Q6H, PRN l Hydrocodone 06:27: for pain, H ermann Bitartrate 00 0 5 MG Oral Refill(s) Tablet [Virgil 5/325] 60 ACTUAT No 90 Memoria Budesonide 6-09 microgram l 0.08 06:27: =, Lead MG/ACTUAT 00 INHALATION Dry Powder , Bedtime, Inhaler please [Pulmicort] clarify dose, 0 Refill(s) gabapentin No 200 mg, Semaj shashi 6-09 PO, Q8H, 0 l 06:27: Refill(s) Lead 00 bisacodyl 5 No 10 mg = 2 M emoria mg oral 6-09 tab, PO, l enteric 06:27: Daily, PRN [...] mg = 1 Me moria MG Enteric 02-21 tab, PO, l Coated 06:27: Daily, # Vinnie Tablet 00 90 tab, 3 Refill(s) ascorbic No 500 mg, Memori a acid 02-21 PO, Daily, l 06:27: 0 Vinnie 00 Refill(s) Fluticasone No = 1 puff, M emoria propionate 02-21 INHALATION l 0.1 06:27: , Daily, # Vinnie MG/ACTUAT 00 120 ea, 0 Dry Powder Refill(s) Inhaler Potassium No See Memoria gluconate 02-21 Instructio l 06:27: ns, please Vinnie 00 clarify order p.o. BID, 0 Refill(s) 0.4 ML No 40 mg, Memoria Enoxaparin 02-21 SUB-Q, l sodium 100 06:27: Daily, # 7 H ermann MG/ML 00 ea, 0 Prefilled Refill(s) Syringe [Lovenox] Lake-3 No 1,000 mg = Semaj shashi 1000 mg 02-21 1 cap, PO, l oral 06:27: Daily, 0 Vinnie capsule 00 Refill(s) amLODIPine No 5 mg = 1 Mem oria 5 mg oral 02-21 tab, PO, l tablet 06:27: Daily, # Vinnie 00 30 tab, 0 Refill(s) Docusate No 2 tab, PO, Mem oria Sodium 50 02-21 BID, # 14 l MG / 06:27: tab, 0 Vinnie sennosides, 00 Refill(s) LONG-TERM 8.6 MG Oral Tablet Multi No 0 Memoria Vitamin+ 02-21 Refill(s) l 06:27: Lead 00 montelukast No 10 mg = 1 M emoria 10 mg oral 609 tab, PO, l tablet 06:27: Bedtime, # Salma nn 00 30 tab, 0 Refill(s) Rocephin 1 No IV, Daily, M emoria g injection - 0 l 06:27: Refill(s) Vinnie 00 melatonin 3 No 3 mg = 1 Me moria mg oral -09 tab, PO, l tablet 06:27: Bedtime, Lead 00 PRN for insomnia, # 60 tab, 0 Refill(s) carvedilol No 6.25 mg = Me moria 6.25 mg 02-21 1 tab, PO, l oral tablet 06:27: BID, # 180 Vinnie 00 tab, 0 Refill(s) Albuterol Yes 3 mL, NEB, Me moria 0.833 MG/ML 02-21 Q4H, PRN l / 06:27: shortness Lead Ipratropium 00 of breath, Recluse 0 0.167 MG/ML Refill(s) Inhalant Solution [DuoNeb] Magnesium No 400 mg = 1 Me moria Oxide - tab, PO, l 06:27: Bedtime, # Lead 00 20 tab, 0 Refill(s) Lidocaine No 1 patch, Semja shashi 0.05 MG/MG 02-21 TOP, l Transdermal 06:27: Daily, Herm avis Patch 00 left knee remove patches after 12 hours, 0 Refill(s) Thyroxine Yes 112 Memoria 02-21 microgram, l 06:27: PO, Daily, Lead 00 0 Refill(s) Coumadin No 5 mg, PO, Semaj shashi 6 QPM, every l 06:27: M,W,F, 0 Lead 00 Refill(s) isosorbide No 20 mg = 1 Me moria dinitrate - tab, PO, l 20 mg oral 06:27: BID, 0 Salma nn tablet 00 Refill(s) Warfarin No 2.5 mg = 1 Mem oria Sodium 2.5 - tab, PO, l MG Oral 06:27: QPM, every Herm avis Tablet 00 T, , Sa, [Coumadin] 0 Refill(s) Tylenol No 650 mg, Memoria 6- PO, Q6H, l 06:27: PRN fever, Lead 00 0 Refill(s) Glipizide 5 No 5 mg = 1 Me moria MG Oral 6-09 tab, PO, l Tablet 06:27: Daily, 0 Lead 00 Refill(s) Acetaminoph Yes 1 tab, PO, Memoria en 325 MG / 6-09 Q6H, PRN l Hydrocodone 06:27: for pain, H ermann Bitartrate 00 0 5 MG Oral Refill(s) Tablet [Virgil 5/325] 60 ACTUAT No 90 Memoria Budesonide 6- microgram l 0.08 06:27: =, Vinnie MG/ACTUAT 00 INHALATION Dry Powder , Bedtime, Inhaler please [Pulmicort] clarify dose, 0 Refill(s) gabapentin No 200 mg, Semaj shashi 6- PO, Q8H, 0 l 06:27: Refill(s) Lead 00 bisacodyl 5 No 10 mg = 2 M emoria mg oral 6- tab, PO, l enteric 06:27: Daily, PRN Herm avis coated 00 Constipati tablet on, # 20 tab, 0 Refill(s) Furosemide No 20 mg = 1 Me moria 20 MG Oral 6-09 tab, PO, l Tablet 06:27: Daily, # Lead 00 30 tab, 0 Refill(s) atorvastati Yes 10 mg = 1 M emoria n 10 mg 6-09 tab, PO, l oral tablet 06:27: Bedtime, # Vinnie 00 90 tab, 1 Refill(s) Aspirin 81 Yes 81 mg = 1 Me moria MG Enteric 6-09 tab, PO, l Coated 06:27: Daily, # Vinnie Tablet 00 90 tab, 3 Refill(s) ascorbic No 500 mg, Memori a acid 6-09 PO, Daily, l 06:27: 0 Lead 00 Refill(s) Fluticasone No = 1 puff, M emoria propionate 6-09 INHALATION l 0.1 06:27: , Daily, # Vinnie MG/ACTUAT 00 120 ea, 0 Dry Powder Refill(s) Inhaler Potassium No See Memoria gluconate 6-09 Instructio l 06:27: ns, please clarify order p.o. BID, 0 Refill(s) 0.4 ML No 40 mg, Memoria Enoxaparin 02-21 SUB-Q, l sodium 100 06:27: Daily, # 7 H ermann MG/ML 00 ea, 0 Prefilled Refill(s) Syringe [Lovenox] Lake-3 No 1,000 mg = Semaj shashi 1000 mg 02-21 1 cap, PO, l oral 06:27: Daily, 0 Lead capsule 00 Refill(s) amLODIPine No 5 mg = 1 Mem oria 5 mg oral 02-21 tab, PO, l tablet 06:27: Daily, # Vinnie 00 30 tab, 0 Refill(s) Docusate No 2 tab, PO, Mem oria Sodium 50 02-21 BID, # 14 l MG / 06:27: tab, 0 Lead sennosides, 00 Refill(s) LONG-TERM 8.6 MG Oral Tablet Multi No 0 Memoria Vitamin+ 02-21 Refill(s) l 06:27: Vinnie 00 montelukast No 10 mg = 1 M emoria 10 mg oral 02-21 tab, PO, l tablet 06:27: Bedtime, # Salma nn 00 30 tab, 0 Refill(s) Rocephin 1 No IV, Daily, M emoria g injection 02-21 0 l 06:27: Refill(s) Lead 00 melatonin 3 No 3 mg = 1 Me moria mg oral 02-21 tab, PO, l tablet 06:27: Bedtime, Vinnie 00 PRN for insomnia, # 60 tab, 0 Refill(s) carvedilol No 6.25 mg = Me moria 6.25 mg 02-21 1 tab, PO, l oral tablet 06:27: BID, # 180 Lead 00 tab, 0 Refill(s) Albuterol Yes 3 mL, NEB, Me moria 0.833 MG/ML 02-21 Q4H, PRN l / 06:27: shortness Lead Ipratropium 00 of breath, Recluse 0 0.167 MG/ML Refill(s) Inhalant Solution [DuoNeb] Magnesium No 400 mg = 1 Me moria Oxide 6-09 tab, PO, l 06:27: Bedtime, # Lead 00 20 tab, 0 Refill(s) Lidocaine No 1 patch, Semaj shashi 0.05 MG/MG 6 TOP, l Transdermal 06:27: Daily, Herm avis Patch 00 left knee remove patches after 12 hours, 0 Refill(s) Thyroxine Yes 112 Memoria 6-09 microgram, l 06:27: PO, Daily, Lead 00 0 Refill(s) Coumadin No 5 mg, PO, Semaj shashi 6-09 QPM, every l 06:27: M,W,F, 0 Vinnie 00 Refill(s) isosorbide No 20 mg = 1 Me moria dinitrate 6-09 tab, PO, l 20 mg oral 06:27: BID, 0 Salma nn tablet 00 Refill(s) Warfarin No 2.5 mg = 1 Mem oria Sodium 2.5 6- tab, PO, l MG Oral 06:27: QPM, every Herm avis Tablet 00 , , , [Coumadin] 0 Refill(s) Tylenol No 650 mg, Memoria 6-09 PO, Q6H, l 06:27: PRN fever, Vinnie 00 0 Refill(s) Glipizide 5 No 5 mg = 1 Me moria MG Oral 6-09 tab, PO, l Tablet 06:27: Daily, 0 Vinnie 00 Refill(s) Acetaminoph Yes 1 tab, PO, Memoria en 325 MG / 6-09 Q6H, PRN l Hydrocodone 06:27: for pain, H ermann Bitartrate 00 0 5 MG Oral Refill(s) Tablet [Virgil 5/325] 60 ACTUAT No 90 Memoria Budesonide 6-09 microgram l 0.08 06:27: =, Lead MG/ACTUAT 00 INHALATION Dry Powder , Bedtime, Inhaler please [Pulmicort] clarify dose, 0 Refill(s) gabapentin No 200 mg, Semaj shashi 6-09 PO, Q8H, 0 l 06:27: Refill(s) Vinnie 00 bisacodyl 5 No 10 mg = 2 M emoria mg oral 6-09 tab, PO, l enteric 06:27: Daily, PRN [...] acid 6- PO, Daily, l 06:27: 0 Lead 00 Refill(s) Fluticasone No = 1 puff, M emoria propionate 02-21 INHALATION l 0.1 06:27: , Daily, # Vinnie MG/ACTUAT 00 120 ea, 0 Dry Powder Refill(s) Inhaler Potassium No See Memoria gluconate 02-21 Instructio l 06:27: ns, please Lead 00 clarify order p.o. BID, 0 Refill(s) 0.4 ML No 40 mg, Memoria Enoxaparin 02-21 SUB-Q, l sodium 100 06:27: Daily, # 7 H ermann MG/ML 00 ea, 0 Prefilled Refill(s) Syringe [Lovenox] Lake-3 No 1,000 mg = Semaj shashi 1000 mg 02-21 1 cap, PO, l oral 06:27: Daily, 0 Lead capsule 00 Refill(s) amLODIPine No 5 mg = 1 Mem oria 5 mg oral 6-09 tab, PO, l tablet 06:27: Daily, # Vinnie 00 30 tab, 0 Refill(s) Docusate No 2 tab, PO, Mem oria Sodium 50 6- BID, # 14 l MG / 06:27: tab, 0 Vinnie sennosides, 00 Refill(s) LONG-TERM 8.6 MG Oral Tablet Multi No 0 Memoria Vitamin+ 6-09 Refill(s) l 06:27: Vinnie 00 montelukast No 10 mg = 1 M emoria 10 mg oral 09 tab, PO, l tablet 06:27: Bedtime, # Salma nn 00 30 tab, 0 Refill(s) Rocephin 1 No IV, Daily, M emoria g injection 02-21 0 l 06:27: Refill(s) Vinnie melatonin 3 No 3 mg = 1 Me moria mg oral 02-21 tab, PO, l tablet 06:27: Bedtime, Vinnie 00 PRN for insomnia, # 60 tab, 0 Refill(s) carvedilol No 6.25 mg = Me moria 6.25 mg 02-21 1 tab, PO, l oral tablet 06:27: BID, # 180 Lead 00 tab, 0 Refill(s) Albuterol Yes 3 mL, NEB, Me moria 0.833 MG/ML 02-21 Q4H, PRN l / 06:27: shortness Lead Ipratropium 00 of breath, Recluse 0 0.167 MG/ML Refill(s) Inhalant Solution [DuoNeb] Magnesium No 400 mg = 1 Me moria Oxide - tab, PO, l 06:27: Bedtime, # Lead 00 20 tab, 0 Refill(s) Lidocaine No 1 patch, Semaj shashi 0.05 MG/MG 02-21 TOP, l Transdermal 06:27: Daily, Herm avis Patch 00 left knee remove patches after 12 hours, 0 Refill(s) Thyroxine Yes 112 Memoria 6- microgram, l 06:27: PO, Daily, Lead 00 0 Refill(s) Coumadin No 5 mg, PO, Semaj shashi 6 QPM, every l 06:27: M,W,F, 0 Vinnie 00 Refill(s) isosorbide No 20 mg = 1 Me moria dinitrate 6-09 tab, PO, l 20 mg oral 06:27: BID, 0 Salma nn tablet 00 Refill(s) Warfarin No 2.5 mg = 1 Mem oria Sodium 2.5 6-09 tab, PO, l MG Oral 06:27: QPM, every Herm avis Tablet 00 , , , [Coumadin] 0 Refill(s) Tylenol No 650 mg, Memoria 6-09 PO, Q6H, l 06:27: PRN fever, Lead 00 0 Refill(s) Glipizide 5 No 5 mg = 1 Me moria MG Oral 6-09 tab, PO, l Tablet 06:27: Daily, 0 Lead 00 Refill(s) Acetaminoph Yes 1 tab, PO, Memoria en 325 MG / 6- Q6H, PRN l Hydrocodone 06:27: for pain, H ermann Bitartrate 00 0 5 MG Oral Refill(s) Tablet [Virgil 5/325] 60 ACTUAT No 90 Memoria Budesonide 6- microgram l 0.08 06:27: =, Vinnie MG/ACTUAT 00 INHALATION Dry Powder , Bedtime, Inhaler please [Pulmicort] clarify dose, 0 Refill(s) gabapentin No 200 mg, Semaj shashi 6- PO, Q8H, 0 l 06:27: Refill(s) Lead 00 bisacodyl 5 No 10 mg = [...] = 1 M emoria n 10 mg 6-09 tab, PO, l oral tablet 06:27: Bedtime, # Lead 00 90 tab, 1 Refill(s) Aspirin 81 Yes 81 mg = 1 Me moria MG Enteric 6-09 tab, PO, l Coated 06:27: Daily, # Lead Tablet 00 90 tab, 3 Refill(s) ascorbic No 500 mg, Memori a acid 6-09 PO, Daily, l 06:27: 0 Vinnie 00 Refill(s) Fluticasone No = 1 puff, M emoria propionate 02-21 INHALATION l 0.1 06:27: , Daily, # Lead MG/ACTUAT 00 120 ea, 0 Dry Powder Refill(s) Inhaler Potassium No See Memoria gluconate 02-21 Instructio l 06:27: ns, please Lead 00 clarify order p.o. BID, 0 Refill(s) 0.4 ML No 40 mg, Memoria Enoxaparin 02-21 SUB-Q, l sodium 100 06:27: Daily, # 7 H ermann MG/ML 00 ea, 0 Prefilled Refill(s) Syringe [Lovenox] Lake-3 No 1,000 mg = Semaj shashi 1000 mg 02-21 1 cap, PO, l oral 06:27: Daily, 0 Vinnie capsule 00 Refill(s) amLODIPine No 5 mg = 1 Mem oria 5 mg oral 02-21 tab, PO, l tablet 06:27: Daily, # Lead 00 30 tab, 0 Refill(s) Docusate No 2 tab, PO, Mem oria Sodium 50 6 BID, # 14 l MG / 06:27: tab, 0 Lead sennosides, 00 Refill(s) LONG-TERM 8.6 MG Oral Tablet Multi No 0 Memoria Vitamin+ 02-21 Refill(s) l 06:27: Vinnie 00 montelukast No 10 mg = 1 M emoria 10 mg oral 02-21 tab, PO, l tablet 06:27: Bedtime, # Salma nn 00 30 tab, 0 Refill(s) Rocephin 1 No IV, Daily, M emoria g injection 02-21 0 l 06:27: Refill(s) Vinnie 00 melatonin 3 No 3 mg = 1 Me moria mg oral 02-21 tab, PO, l tablet 06:27: Bedtime, Lead 00 PRN for insomnia, # 60 tab, 0 Refill(s) carvedilol No 6.25 mg = Me moria 6.25 mg 02-21 1 tab, PO, l oral tablet 06:27: BID, # 180 Vinnie 00 tab, 0 Refill(s) Albuterol 2018- Yes 3 mL, NEB, Me moria 0.833 MG/ML 6 Q4H, PRN l / 06:27: shortness Vinnie Ipratropium 00 of breath, Recluse 0 0.167 MG/ML Refill(s) Inhalant Solution [DuoNeb] Magnesium No 400 mg = 1 Me moria Oxide 6-09 tab, PO, l 06:27: Bedtime, # Lead 00 20 tab, 0 Refill(s) Lidocaine No 1 patch, Semaj shashi 0.05 MG/MG 6 TOP, l Transdermal 06:27: Daily, Herm avis Patch 00 left knee remove patches after 12 hours, 0 Refill(s) Thyroxine Yes 112 Memoria 6- microgram, l 06:27: PO, Daily, Lead 00 0 Refill(s) Coumadin No 5 mg, PO, Semaj shashi 6 QPM, every l 06:27: M,W,F, 0 Vinnie 00 Refill(s) isosorbide No 20 mg = 1 Me moria dinitrate 6-09 tab, PO, l 20 mg oral 06:27: BID, 0 Salma nn tablet 00 Refill(s) Warfarin No 2.5 mg = 1 Mem oria Sodium 2.5 6- tab, PO, l MG Oral 06:27: QPM, every Herm avis Tablet 00 T, , Sa, [Coumadin] 0 Refill(s) Tylenol No 650 mg, Memoria 6-09 PO, Q6H, l 06:27: PRN fever, Lead 00 0 Refill(s) Glipizide 5 2019- No 5 mg = 1 Me moria MG Oral 6-09 tab, PO, l Tablet 06:27: Daily, 0 Vinnie 00 Refill(s) Acetaminoph 2018-0 Yes 1 tab, PO, Memoria en 325 MG / 609 Q6H, PRN l Hydrocodone 06:27: for pain, H ermann Bitartrate 00 0 5 MG Oral Refill(s) Tablet [Virgil 5/325] 60 ACTUAT 2018-0 No 90 Memoria Budesonide -09 microgram l 0.08 06:27: =, Lead MG/ACTUAT 00 INHALATION Dry Powder , Bedtime, Inhaler please [Pulmicort] clarify dose, 0 Refill(s) gabapentin No 200 mg, Semaj hsashi 6 PO, Q8H, 0 l 06:27: Refill(s) Lead 00 bisacodyl 5 No 10 mg = [...] = 1 M emoria n 10 mg - tab, PO, l oral tablet 06:27: Bedtime, # Lead 00 90 tab, 1 Refill(s) Aspirin 81 Yes 81 mg = 1 Me moria MG Enteric 02-21 tab, PO, l Coated 06:27: Daily, # Lead Tablet 00 90 tab, 3 Refill(s) ascorbic No 500 mg, Memori a acid 02-21 PO, Daily, l 06:27: 0 Lead 00 Refill(s) Fluticasone No = 1 puff, M emoria propionate 6- INHALATION l 0.1 06:27: , Daily, # Lead MG/ACTUAT 00 120 ea, 0 Dry Powder Refill(s) Inhaler Potassium No See Memoria gluconate 02-21 Instructio l 06:27: ns, please Lead 00 clarify order p.o. BID, 0 Refill(s) 0.4 ML No 40 mg, Memoria Enoxaparin 02-21 SUB-Q, l sodium 100 06:27: Daily, # 7 H ermann MG/ML 00 ea, 0 Prefilled Refill(s) Syringe [Lovenox] Lake-3 No 1,000 mg = Semaj shashi 1000 mg 02-21 1 cap, PO, l oral 06:27: Daily, 0 Lead capsule 00 Refill(s) amLODIPine No 5 mg = 1 Mem oria 5 mg oral -09 tab, PO, l tablet 06:27: Daily, # Lead 00 30 tab, 0 Refill(s) Docusate No 2 tab, PO, Mem oria Sodium 50 6 BID, # 14 l MG / 06:27: tab, 0 Lead sennosides, 00 Refill(s) LONG-TERM 8.6 MG Oral Tablet Multi No 0 Memoria Vitamin+ 02-21 Refill(s) l 06:27: Vinnie 00 montelukast No 10 mg = 1 M emoria 10 mg oral 02-21 tab, PO, l tablet 06:27: Bedtime, # Salma nn 00 30 tab, 0 Refill(s) Rocephin 1 No IV, Daily, M emoria g injection 02-21 0 l 06:27: Refill(s) Vinnie 00 melatonin 3 No 3 mg = 1 Me moria mg oral 02-21 tab, PO, l tablet 06:27: Bedtime, Vinnie 00 PRN for insomnia, # 60 tab, 0 Refill(s) carvedilol No 6.25 mg = Me moria 6.25 mg 02-21 1 tab, PO, l oral tablet 06:27: BID, # 180 Vinnie 00 tab, 0 Refill(s) Albuterol Yes 3 mL, NEB, Me moria 0.833 MG/ML 02-21 Q4H, PRN l / 06:27: shortness Vinnie Ipratropium 00 of breath, Recluse 0 0.167 MG/ML Refill(s) Inhalant Solution [DuoNeb] Magnesium No 400 mg = 1 Me moria Oxide - tab, PO, l 06:27: Bedtime, # Lead 00 20 tab, 0 Refill(s) Lidocaine No 1 patch, Semaj shashi 0.05 MG/MG 02-21 TOP, l Transdermal 06:27: Daily, Herm avis Patch 00 left knee remove patches after 12 hours, 0 Refill(s) Thyroxine Yes 112 Memoria 02-21 microgram, l 06:27: PO, Daily, Vinnie 00 0 Refill(s) Coumadin No 5 mg, PO, Semaj shashi 6-09 QPM, every l 06:27: M,W,F, 0 Vinnie 00 Refill(s) isosorbide No 20 mg = 1 Me moria dinitrate 6-09 tab, PO, l 20 mg oral 06:27: BID, 0 Salma nn tablet 00 Refill(s) Warfarin No 2.5 mg = 1 Mem oria Sodium 2.5 6- tab, PO, l MG Oral 06:27: QPM, every Herm vais Tablet 00 , , Sa, [Coumadin] 0 Refill(s) Tylenol No 650 mg, Memoria 6- PO, Q6H, l 06:27: PRN fever, Vinnie 00 0 Refill(s) Glipizide 5 No 5 mg = 1 Me moria MG Oral 6-09 tab, PO, l Tablet 06:27: Daily, 0 Lead 00 Refill(s) Acetaminoph Yes 1 tab, PO, Memoria en 325 MG / 6-09 Q6H, PRN l Hydrocodone 06:27: for pain, H ermann Bitartrate 00 0 5 MG Oral Refill(s) Tablet [Virgil 5/325] 60 ACTUAT No 90 Memoria Budesonide 02-21 microgram l 0.08 06:27: =, Vinnie MG/ACTUAT 00 INHALATION Dry Powder , Bedtime, Inhaler please [Pulmicort] clarify dose, 0 Refill(s) gabapentin No 200 mg, Semaj shashi 6-09 PO, Q8H, 0 l 06:27: Refill(s) Lead 00 bisacodyl 5 No 10 mg = 2 M emoria mg oral 6-09 tab, PO, l enteric 06:27: Daily, PRN Herm avis coated 00 Constipati tablet on, # 20 tab, 0 Refill(s) Furosemide No 20 mg = 1 Me moria 20 MG Oral 6-09 tab, PO, l Tablet 06:27: Daily, # Lead 00 30 tab, 0 Refill(s) atorvastati Yes 10 mg = 1 M emoria n 10 mg 6-09 tab, PO, l oral tablet 06:27: Bedtime, # Vinnie 00 90 tab, 1 Refill(s) Aspirin 81 2019- Yes 81 mg = 1 Me moria MG Enteric 02-21 tab, PO, l Coated 06:27: Daily, # Lead Tablet 00 90 tab, 3 Refill(s) ascorbic 2018- No 500 mg, Memori a acid 02-21 PO, Daily, l 06:27: 0 Lead 00 Refill(s) Fluticasone No = 1 puff, M emoria propionate 02-21 INHALATION l 0.1 06:27: , Daily, # Vinnie MG/ACTUAT 00 120 ea, 0 Dry Powder Refill(s) Inhaler Potassium No See Memoria gluconate 02-21 Instructio l 06:27: ns, please Vinnie 00 clarify order p.o. BID, 0 Refill(s) 0.4 ML No 40 mg, Memoria Enoxaparin 02-21 SUB-Q, l sodium 100 06:27: Daily, # 7 H ermann MG/ML 00 ea, 0 Prefilled Refill(s) Syringe [Lovenox] Lake-3 No 1,000 mg = Semaj shashi 1000 mg 02-21 1 cap, PO, l oral 06:27: Daily, 0 Vinnie capsule 00 Refill(s) amLODIPine No 5 mg = 1 Mem oria 5 mg oral 02-21 tab, PO, l tablet 06:27: Daily, # Lead 00 30 tab, 0 Refill(s) Docusate No 2 tab, PO, Mem oria Sodium 50 02-21 BID, # 14 l MG / 06:27: tab, 0 Lead sennosides, 00 Refill(s) LONG-TERM 8.6 MG Oral Tablet Multi No 0 Memoria Vitamin+ 09 Refill(s) l 06:27: Vinnie 00 montelukast No 10 mg = 1 M emoria 10 mg oral 02-21 tab, PO, l tablet 06:27: Bedtime, # Salma nn 00 30 tab, 0 Refill(s) Rocephin 1 No IV, Daily, M emoria g injection 02-21 0 l 06:27: Refill(s) Lead 00 melatonin 3 No 3 mg = 1 Me moria mg oral 02-21 tab, PO, l tablet 06:27: Bedtime, Vinnie 00 PRN for insomnia, # 60 tab, 0 Refill(s) carvedilol No 6.25 mg = Me moria 6.25 mg 02-21 1 tab, PO, l oral tablet 06:27: BID, # 180 Lead 00 tab, 0 Refill(s) Albuterol Yes 3 mL, NEB, Me moria 0.833 MG/ML 02-21 Q4H, PRN l / 06:27: shortness Lead Ipratropium 00 of breath, Recluse 0 0.167 MG/ML Refill(s) Inhalant Solution [DuoNeb] Magnesium No 400 mg = 1 Me moria Oxide - tab, PO, l 06:27: Bedtime, # Lead 00 20 tab, 0 Refill(s) Lidocaine No 1 patch, Semaj shashi 0.05 MG/MG 02-21 TOP, l Transdermal 06:27: Daily, Herm avis Patch 00 left knee remove patches after 12 hours, 0 Refill(s) Thyroxine Yes 112 Memoria 02-21 microgram, l 06:27: PO, Daily, Lead 00 0 Refill(s) Coumadin No 5 mg, PO, Semaj shashi 02-21 QPM, every l 06:27: M,W,F, 0 Vinnie 00 Refill(s) isosorbide No 20 mg = 1 Me moria dinitrate - tab, PO, l 20 mg oral 06:27: BID, 0 Salma nn tablet 00 Refill(s) Warfarin No 2.5 mg = 1 Mem oria Sodium 2.5 02-21 tab, PO, l MG Oral 06:27: QPM, every Herm avis Tablet 00 , , , [Coumadin] 0 Refill(s) Tylenol No 650 mg, Memoria - PO, Q6H, l 06:27: PRN fever, Vinnie 00 0 Refill(s) Glipizide 5 No 5 mg = 1 Me moria MG Oral 02-21 tab, PO, l Tablet 06:27: Daily, 0 Vinnie 00 Refill(s) Acetaminoph Yes 1 tab, PO, Memoria en 325 MG / 6 Q6H, PRN l Hydrocodone 06:27: for pain, H ermann Bitartrate 00 0 5 MG Oral Refill(s) Tablet [Virgil 5/325] 60 ACTUAT 2019- No 90 Memoria Budesonide 6-09 microgram l 0.08 06:27: =, Vinnie MG/ACTUAT 00 INHALATION Dry Powder , Bedtime, Inhaler please [Pulmicort] clarify dose, 0 Refill(s) gabapentin No 200 mg, Semaj shashi 6- PO, Q8H, 0 l 06:27: Refill(s) Lead 00 bisacodyl 5 No 10 mg = 2 M emoria mg oral 02-21 tab, PO, l enteric 06:27: Daily, PRN Herm avis coated 00 Constipati tablet on, # 20 tab, 0 Refill(s) Furosemide No 20 mg = 1 Me moria 20 MG Oral 6-09 tab, PO, l Tablet 06:27: Daily, # Lead 00 30 tab, 0 Refill(s) atorvastati Yes 10 mg = 1 M emoria n 10 mg 6- tab, PO, l oral tablet 06:27: Bedtime, # Vinnie 00 90 tab, 1 Refill(s) Aspirin 81 Yes 81 mg = 1 Me moria MG Enteric 6- tab, PO, l Coated 06:27: Daily, # Lead Tablet 00 90 tab, 3 Refill(s) ascorbic No 500 mg, Memori a acid - PO, Daily, l 06:27: 0 Vinnie 00 Refill(s) Fluticasone No = 1 puff, M emoria propionate 6-09 INHALATION l 0.1 06:27: , Daily, # Vinnie MG/ACTUAT 00 120 ea, 0 Dry Powder Refill(s) Inhaler Potassium No See Memoria gluconate 02-21 Instructio l 06:27: ns, please Lead 00 clarify order p.o. BID, 0 Refill(s) 0.4 ML No 40 mg, Memoria Enoxaparin 02-21 SUB-Q, l sodium 100 06:27: Daily, # 7 H ermann MG/ML 00 ea, 0 Prefilled Refill(s) Syringe [Lovenox] Lake-3 No 1,000 mg = Semaj shashi 1000 mg 02-21 1 cap, PO, l oral 06:27: Daily, 0 Lead capsule 00 Refill(s) amLODIPine No 5 mg = 1 Mem oria 5 mg oral 02-21 tab, PO, l tablet 06:27: Daily, # Lead 00 30 tab, 0 Refill(s) Docusate No 2 tab, PO, Mem oria Sodium 50 6 BID, # 14 l MG / 06:27: tab, 0 Lead sennosides, 00 Refill(s) LONG-TERM 8.6 MG Oral Tablet Multi No 0 Memoria Vitamin+ 02-21 Refill(s) l 06:27: Vinnie 00 montelukast No 10 mg = 1 M emoria 10 mg oral 02-21 tab, PO, l tablet 06:27: Bedtime, # Salma nn 00 30 tab, 0 Refill(s) Rocephin 1 No IV, Daily, M emoria g injection 02-21 0 l 06:27: Refill(s) Vinnie 00 melatonin 3 No 3 mg = 1 Me moria mg oral 02-21 tab, PO, l tablet 06:27: Bedtime, Vinnie 00 PRN for insomnia, # 60 tab, 0 Refill(s) carvedilol No 6.25 mg = Me moria 6.25 mg 02-21 1 tab, PO, l oral tablet 06:27: BID, # 180 Lead 00 tab, 0 Refill(s) Albuterol Yes 3 mL, NEB, Me moria 0.833 MG/ML 02-21 Q4H, PRN l / 06:27: shortness Lead Ipratropium 00 of breath, Recluse 0 0.167 MG/ML Refill(s) Inhalant Solution [DuoNeb] Magnesium No 400 mg = 1 Me moria Oxide 02-21 tab, PO, l 06:27: Bedtime, # Vinnie 00 20 tab, 0 Refill(s) Lidocaine No 1 patch, Semaj shashi 0.05 MG/MG 6- TOP, l Transdermal 06:27: Daily, Herm avis Patch 00 left knee remove patches after 12 hours, 0 Refill(s) Thyroxine Yes 112 Memoria 6-09 microgram, l 06:27: PO, Daily, Lead 00 0 Refill(s) Coumadin No 5 mg, PO, Semaj shashi 6-09 QPM, every l 06:27: M,W,F, 0 Vinnie 00 Refill(s) isosorbide No 20 mg = 1 Me moria dinitrate 6-09 tab, PO, l 20 mg oral 06:27: BID, 0 Salma nn tablet 00 Refill(s) Warfarin No 2.5 mg = 1 Mem oria Sodium 2.5 6-09 tab, PO, l MG Oral 06:27: QPM, every Herm avis Tablet 00 , , , [Coumadin] 0 Refill(s) Tylenol No 650 mg, Memoria 6-09 PO, Q6H, l 06:27: PRN fever, Lead 00 0 Refill(s) Glipizide 5 No 5 mg = 1 Me moria MG Oral 6-09 tab, PO, l Tablet 06:27: Daily, 0 Lead 00 Refill(s) Acetaminoph Yes 1 tab, PO, Memoria en 325 MG / 6-09 Q6H, PRN l Hydrocodone 06:27: for pain, H ermann Bitartrate 00 0 5 MG Oral Refill(s) Tablet [Virgil 5/325] 60 ACTUAT No 90 Memoria Budesonide 6-09 microgram l 0.08 06:27: =, Vinnie MG/ACTUAT 00 INHALATION Dry Powder , Bedtime, Inhaler please [Pulmicort] clarify dose, 0 Refill(s) gabapentin No 200 mg, Semaj shashi 6-09 PO, Q8H, 0 l 06:27: Refill(s) Vinnie 00 bisacodyl 5 No 10 mg = 2 M emoria mg oral 6-09 tab, PO, l enteric 06:27: Daily, PRN Herm avis coated 00 Constipati tablet on, # 20 tab, 0 Refill(s) Furosemide No 20 mg = 1 Me moria 20 MG Oral 6-09 tab, PO, l Tablet 06:27: Daily, # Vinnie 00 30 tab, 0 Refill(s) atorvastati Yes 10 mg = 1 M emoria n 10 mg 6-09 tab, PO, l oral tablet 06:27: Bedtime, # Lead 00 90 tab, 1 Refill(s) Aspirin 81 Yes 81 mg = 1 Me moria MG Enteric 6- tab, PO, l Coated 06:27: Daily, # Lead Tablet 00 90 tab, 3 Refill(s) ascorbic No 500 mg, Memori a acid 02-21 PO, Daily, l 06:27: 0 Lead 00 Refill(s) Fluticasone No = 1 puff, M emoria propionate 02-21 INHALATION l 0.1 06:27: , Daily, # Vinnie MG/ACTUAT 00 120 ea, 0 Dry Powder Refill(s) Inhaler Potassium No See Memoria gluconate 02-21 Instructio l 06:27: ns, please Vinnie 00 clarify order p.o. BID, 0 Refill(s) 0.4 ML No 40 mg, Memoria Enoxaparin 02-21 SUB-Q, l sodium 100 06:27: Daily, # 7 H ermann MG/ML 00 ea, 0 Prefilled Refill(s) Syringe [Lovenox] Lake-3 No 1,000 mg = Semaj shashi 1000 mg 02-21 1 cap, PO, l oral 06:27: Daily, 0 Vinnie capsule 00 Refill(s) amLODIPine No 5 mg = 1 Mem oria 5 mg oral 09 tab, PO, l tablet 06:27: Daily, # Vinnie 00 30 tab, 0 Refill(s) Docusate No 2 tab, PO, Mem oria Sodium 50 6 BID, # 14 l MG / 06:27: tab, 0 Lead sennosides, 00 Refill(s) LONG-TERM 8.6 MG Oral Tablet Multi No 0 Memoria Vitamin+ 02-21 Refill(s) l 06:27: Lead 00 montelukast No 10 mg = 1 M emoria 10 mg oral - tab, PO, l tablet 06:27: Bedtime, # Salma nn 00 30 tab, 0 Refill(s) Rocephin 1 No IV, Daily, M emoria g injection 02-21 0 l 06:27: Refill(s) Lead 00 melatonin 3 2019- No 3 mg = 1 Me moria mg oral 02-21 tab, PO, l tablet 06:27: Bedtime, Vinnie 00 PRN for insomnia, # 60 tab, 0 Refill(s) carvedilol No 6.25 mg = Me moria 6.25 mg 02-21 1 tab, PO, l oral tablet 06:27: BID, # 180 Vinnie 00 tab, 0 Refill(s) Albuterol Yes 3 mL, NEB, Me moria 0.833 MG/ML 02-21 Q4H, PRN l / 06:27: shortness Lead Ipratropium 00 of breath, Recluse 0 0.167 MG/ML Refill(s) Inhalant Solution [DuoNeb] Magnesium No 400 mg = 1 Me moria Oxide - tab, PO, l 06:27: Bedtime, # Lead 00 20 tab, 0 Refill(s) Lidocaine No 1 patch, Semaj shashi 0.05 MG/MG 02-21 TOP, l Transdermal 06:27: Daily, Herm avis Patch 00 left knee remove patches after 12 hours, 0 Refill(s) Thyroxine Yes 112 Memoria - microgram, l 06:27: PO, Daily, Vinnie 00 0 Refill(s) Coumadin No 5 mg, PO, Semaj shashi 6 QPM, every l 06:27: M,W,F, 0 Vinnie 00 Refill(s) isosorbide No 20 mg = 1 Me moria dinitrate 6-09 tab, PO, l 20 mg oral 06:27: BID, 0 Salma nn tablet 00 Refill(s) Warfarin No 2.5 mg = 1 Mem oria Sodium 2.5 6-09 tab, PO, l MG Oral 06:27: QPM, every Herm avis Tablet 00 , , Sa, [Coumadin] 0 Refill(s) Tylenol No 650 mg, Memoria 6-09 PO, Q6H, l 06:27: PRN fever, Vinnie 00 0 Refill(s) Glipizide 5 No 5 mg = 1 Me moria MG Oral 6-09 tab, PO, l Tablet 06:27: Daily, 0 Lead 00 Refill(s) Acetaminoph Yes 1 tab, PO, Memoria en 325 MG / 6-09 Q6H, PRN l Hydrocodone 06:27: for pain, H ermann Bitartrate 00 0 5 MG Oral Refill(s) Tablet [Virgil 5/325] 60 ACTUAT No 90 Memoria Budesonide 6 microgram l 0.08 06:27: =, Vinnie MG/ACTUAT 00 INHALATION Dry Powder , Bedtime, Inhaler please [Pulmicort] clarify dose, 0 Refill(s) gabapentin No 200 mg, Semaj shashi 6- PO, Q8H, 0 l 06:27: Refill(s) Vinnie 00 bisacodyl 5 No 10 mg = 2 M emoria mg oral 6-09 tab, PO, l enteric 06:27: Daily, PRN Herm avis coated 00 Constipati tablet on, # 20 tab, 0 Refill(s) Furosemide No 20 mg = 1 Me moria 20 MG Oral 6-09 tab, PO, l Tablet 06:27: Daily, # Vinnie 00 30 tab, 0 Refill(s) atorvastati Yes 10 mg = 1 M emoria n 10 mg 6-09 tab, PO, l oral tablet 06:27: Bedtime, # Lead 00 90 tab, 1 Refill(s) Aspirin 81 Yes 81 mg = 1 Me moria MG Enteric 6-09 tab, PO, l Coated 06:27: Daily, # Lead Tablet 00 90 tab, 3 Refill(s) ascorbic No 500 mg, Memori a acid 6-09 PO, Daily, l 06:27: 0 Lead 00 Refill(s) Fluticasone No = 1 puff, M emoria propionate 6-09 INHALATION l 0.1 06:27: , Daily, # Vinnie MG/ACTUAT 00 120 ea, 0 Dry Powder Refill(s) Inhaler Potassium 2018- No See Memoria gluconate 02-21 Instructio l 06:27: ns, please Vinnie 00 clarify order p.o. BID, 0 Refill(s) 0.4 ML No 40 mg, Memoria Enoxaparin 02-21 SUB-Q, l sodium 100 06:27: Daily, # 7 H ermann MG/ML 00 ea, 0 Prefilled Refill(s) Syringe [Lovenox] Lake-3 No 1,000 mg = Semaj shashi 1000 mg 02-21 1 cap, PO, l oral 06:27: Daily, 0 Vinnie capsule 00 Refill(s) amLODIPine No 5 mg = 1 Mem oria 5 mg oral 02-21 tab, PO, l tablet 06:27: Daily, # Vinnie 00 30 tab, 0 Refill(s) Docusate No 2 tab, PO, Mem oria Sodium 50 6 BID, # 14 l MG / 06:27: tab, 0 Lead sennosides, 00 Refill(s) LONG-TERM 8.6 MG Oral Tablet Multi No 0 Memoria Vitamin+ 02-21 Refill(s) l 06:27: Lead 00 montelukast No 10 mg = 1 M emoria 10 mg oral 02-21 tab, PO, l tablet 06:27: Bedtime, # Salma nn 00 30 tab, 0 Refill(s) Rocephin 1 No IV, Daily, M emoria g injection 02-21 0 l 06:27: Refill(s) Vinnie 00 melatonin 3 2019- No 3 mg = 1 Me moria mg oral 02-21 tab, PO, l tablet 06:27: Bedtime, Lead 00 PRN for insomnia, # 60 tab, 0 Refill(s) carvedilol No 6.25 mg = Me moria 6.25 mg 02-21 1 tab, PO, l oral tablet 06:27: BID, # 180 Vinnie 00 tab, 0 Refill(s) Albuterol Yes 3 mL, NEB, Me moria 0.833 MG/ML 6 Q4H, PRN l / 06:27: shortness Vinnie Ipratropium 00 of breath, Recluse 0 0.167 MG/ML Refill(s) Inhalant Solution [DuoNeb] Magnesium No 400 mg = 1 Me moria Oxide 6-09 tab, PO, l 06:27: Bedtime, # Lead 00 20 tab, 0 Refill(s) Lidocaine No 1 patch, Semaj shashi 0.05 MG/MG 02-21 TOP, l Transdermal 06:27: Daily, Herm avis Patch 00 left knee remove patches after 12 hours, 0 Refill(s) Thyroxine Yes 112 Memoria 6- microgram, l 06:27: PO, Daily, Lead 00 0 Refill(s) Coumadin No 5 mg, PO, Semaj shashi 6 QPM, every l 06:27: M,W,F, 0 Lead 00 Refill(s) isosorbide No 20 mg = 1 Me moria dinitrate - tab, PO, l 20 mg oral 06:27: BID, 0 Salma nn tablet 00 Refill(s) Warfarin No 2.5 mg = 1 Mem oria Sodium 2.5 - tab, PO, l MG Oral 06:27: QPM, every Herm avis Tablet 00 , , , [Coumadin] 0 Refill(s) Tylenol No 650 mg, Memoria 6-09 PO, Q6H, l 06:27: PRN fever, Vinnie 00 0 Refill(s) Glipizide 5 No 5 mg = 1 Me moria MG Oral 6-09 tab, PO, l Tablet 06:27: Daily, 0 Vinnie 00 Refill(s) Acetaminoph Yes 1 tab, PO, Memoria en 325 MG / 6 Q6H, PRN l Hydrocodone 06:27: for pain, H ermann Bitartrate 00 0 5 MG Oral Refill(s) Tablet [Virgil 5/325] 60 ACTUAT No 90 Memoria Budesonide 6-09 microgram l 0.08 06:27: =, Lead MG/ACTUAT 00 INHALATION Dry Powder , Bedtime, Inhaler please [Pulmicort] clarify dose, 0 Refill(s) gabapentin 2018- No 200 mg, Semaj shashi 6- PO, Q8H, 0 l 06:27: Refill(s) Vinnie 00 bisacodyl 5 No 10 mg = 2 M emoria mg oral 6-09 tab, PO, l enteric 06:27: Daily, PRN Herm avis coated 00 Constipati tablet on, # 20 tab, 0 Refill(s) Furosemide No 20 mg = 1 Me moria 20 MG Oral 6-09 tab, PO, l Tablet 06:27: Daily, # Vinnie 00 30 tab, 0 Refill(s) atorvastati Yes 10 mg = 1 M emoria n 10 mg 6-09 tab, PO, l oral tablet 06:27: Bedtime, # Lead 00 90 tab, 1 Refill(s) Aspirin 81 Yes 81 mg = 1 Me moria MG Enteric 6- tab, PO, l Coated 06:27: Daily, # Lead Tablet 00 90 tab, 3 Refill(s) ascorbic 2018- No 500 mg, Memori a acid 6 PO, Daily, l 06:27: 0 Vinnie 00 Refill(s) Fluticasone No = 1 puff, M emoria propionate 02-21 INHALATION l 0.1 06:27: , Daily, # Lead MG/ACTUAT 00 120 ea, 0 Dry Powder Refill(s) Inhaler Potassium No See Memoria gluconate 02-21 Instructio l 06:27: ns, please Vinnie 00 clarify order p.o. BID, 0 Refill(s) 0.4 ML 2018- No 40 mg, Memoria Enoxaparin 02-21 SUB-Q, l sodium 100 06:27: Daily, # 7 H ermann MG/ML 00 ea, 0 Prefilled Refill(s) Syringe [Lovenox] Lake-3 No 1,000 mg = Semaj shashi 1000 mg 02-21 1 cap, PO, l oral 06:27: Daily, 0 Vinnie capsule 00 Refill(s) amLODIPine No 5 mg = 1 Mem oria 5 mg oral 6-09 tab, PO, l tablet 06:27: Daily, # Lead 00 30 tab, 0 Refill(s) Docusate No 2 tab, PO, Mem oria Sodium 50 6 BID, # 14 l MG / 06:27: tab, 0 Lead sennosides, 00 Refill(s) LONG-TERM 8.6 MG Oral Tablet Multi No 0 Memoria Vitamin+ 09 Refill(s) l 06:27: Vinnie 00 montelukast No 10 mg = 1 M emoria 10 mg oral 02-21 tab, PO, l tablet 06:27: Bedtime, # Salma nn 00 30 tab, 0 Refill(s) Rocephin 1 No IV, Daily, M emoria g injection 02-21 0 l 06:27: Refill(s) Vinnie 00 melatonin 3 No 3 mg = 1 Me moria mg oral 02-21 tab, PO, l tablet 06:27: Bedtime, Vinnie PRN for insomnia, # 60 tab, 0 Refill(s) carvedilol No 6.25 mg = Me moria 6.25 mg 02-21 1 tab, PO, l oral tablet 06:27: BID, # 180 Lead 00 tab, 0 Refill(s) Albuterol Yes 3 mL, NEB, Me moria 0.833 MG/ML 02-21 Q4H, PRN l / 06:27: shortness Lead Ipratropium 00 of breath, Recluse 0 0.167 MG/ML Refill(s) Inhalant Solution [DuoNeb] Magnesium No 400 mg = 1 Me moria Oxide - tab, PO, l 06:27: Bedtime, # Vinnie 00 20 tab, 0 Refill(s) Lidocaine No 1 patch, Semaj shashi 0.05 MG/MG 6 TOP, l Transdermal 06:27: Daily, Herm avis Patch 00 left knee remove patches after 12 hours, 0 Refill(s) Thyroxine Yes 112 Memoria 6- microgram, l 06:27: PO, Daily, Lead 00 0 Refill(s) Coumadin No 5 mg, PO, Semaj shashi 6- QPM, every l 06:27: M,W,F, 0 Lead 00 Refill(s) isosorbide No 20 mg = 1 Me moria dinitrate 6-09 tab, PO, l 20 mg oral 06:27: BID, 0 Salma nn tablet 00 Refill(s) Warfarin No 2.5 mg = 1 Mem oria Sodium 2.5 6-09 tab, PO, l MG Oral 06:27: QPM, every Herm avis Tablet 00 , , Sa, [Coumadin] 0 Refill(s) Tylenol No 650 mg, Memoria 6-09 PO, Q6H, l 06:27: PRN fever, Vinnie 00 0 Refill(s) Glipizide 5 No 5 mg = 1 Me moria MG Oral 6-09 tab, PO, l Tablet 06:27: Daily, 0 Lead 00 Refill(s) Acetaminoph Yes 1 tab, PO, Memoria en 325 MG / 6 Q6H, PRN l Hydrocodone 06:27: for pain, H ermann Bitartrate 00 0 5 MG Oral Refill(s) Tablet [Virgil 5/325] 60 ACTUAT No 90 Memoria Budesonide 6-09 microgram l 0.08 06:27: =, Lead MG/ACTUAT 00 INHALATION Dry Powder , Bedtime, Inhaler please [Pulmicort] clarify dose, 0 Refill(s) gabapentin No 200 mg, Semaj shashi 6-09 PO, Q8H, 0 l 06:27: Refill(s) Lead 00 bisacodyl 5 No 10 mg = 2 M emoria mg oral 6-09 tab, PO, l enteric 06:27: Daily, PRN Herm avis coated 00 Constipati tablet on, # 20 tab, 0 Refill(s) Furosemide No 20 mg = 1 Me moria 20 MG Oral 6-09 tab, PO, l Tablet 06:27: Daily, # Vinnie 00 30 tab, 0 Refill(s) atorvastati Yes 10 mg = 1 M emoria n 10 mg 6-09 tab, PO, l oral tablet 06:27: Bedtime, # Lead 00 90 tab, 1 Refill(s) Aspirin 81 Yes 81 mg = 1 Me moria MG Enteric 6-09 tab, PO, l Coated 06:27: Daily, # Lead Tablet 00 90 tab, 3 Refill(s) ascorbic No 500 mg, Memori a acid 02-21 PO, Daily, l 06:27: 0 Vinnie 00 Refill(s) Fluticasone No = 1 puff, M emoria propionate 02-21 INHALATION l 0.1 06:27: , Daily, # Lead MG/ACTUAT 00 120 ea, 0 Dry Powder Refill(s) Inhaler Potassium No See Memoria gluconate 02-21 Instructio l 06:27: ns, please Vinnie 00 clarify order p.o. BID, 0 Refill(s) 0.4 ML No 40 mg, Memoria Enoxaparin 02-21 SUB-Q, l sodium 100 06:27: Daily, # 7 H ermann MG/ML 00 ea, 0 Prefilled Refill(s) Syringe [Lovenox] Lake-3 No 1,000 mg = Semaj shashi 1000 mg 02-21 1 cap, PO, l oral 06:27: Daily, 0 Vinnie capsule 00 Refill(s) amLODIPine No 5 mg = 1 Mem oria 5 mg oral 02-21 tab, PO, l tablet 06:27: Daily, # Vinnie 00 30 tab, 0 Refill(s) Docusate No 2 tab, PO, Mem oria Sodium 50 6 BID, # 14 l MG / 06:27: tab, 0 Vinnie sennosides, 00 Refill(s) LONG-TERM 8.6 MG Oral Tablet Multi No 0 Memoria Vitamin+ 02-21 Refill(s) l 06:27: Vinnie 00 montelukast No 10 mg = 1 M emoria 10 mg oral - tab, PO, l tablet 06:27: Bedtime, # Salma nn 00 30 tab, 0 Refill(s) Rocephin 1 No IV, Daily, M emoria g injection 02-21 0 l 06:27: Refill(s) Lead 00 melatonin 3 No 3 mg = 1 Me moria mg oral 02-21 tab, PO, l tablet 06:27: Bedtime, Vinnie 00 PRN for insomnia, # 60 tab, 0 Refill(s) carvedilol No 6.25 mg = Me moria 6.25 mg 6- 1 tab, PO, l oral tablet 06:27: BID, # 180 Lead 00 tab, 0 Refill(s) Albuterol Yes 3 mL, NEB, Me moria 0.833 MG/ML 02-21 Q4H, PRN l / 06:27: shortness Vinnie Ipratropium 00 of breath, Recluse 0 0.167 MG/ML Refill(s) Inhalant Solution [DuoNeb] Magnesium No 400 mg = 1 Me moria Oxide 6-09 tab, PO, l 06:27: Bedtime, # Lead 00 20 tab, 0 Refill(s) Lidocaine No 1 patch, Semaj shashi 0.05 MG/MG 02-21 TOP, l Transdermal 06:27: Daily, Herm avis Patch 00 left knee remove patches after 12 hours, 0 Refill(s) Thyroxine Yes 112 Memoria 6 microgram, l 06:27: PO, Daily, Vinnie 00 0 Refill(s) Coumadin No 5 mg, PO, Semaj shashi 6 QPM, every l 06:27: M,W,F, 0 Lead 00 Refill(s) isosorbide No 20 mg = 1 Me moria dinitrate -09 tab, PO, l 20 mg oral 06:27: BID, 0 Salma nn tablet 00 Refill(s) Warfarin No 2.5 mg = 1 Mem oria Sodium 2.5 - tab, PO, l MG Oral 06:27: QPM, every Herm avis Tablet 00 T, , Sa, [Coumadin] 0 Refill(s) Tylenol No 650 mg, Memoria 6-09 PO, Q6H, l 06:27: PRN fever, Vinnie 00 0 Refill(s) Glipizide 5 No 5 mg = 1 Me moria MG Oral 6-09 tab, PO, l Tablet 06:27: Daily, 0 Lead 00 Refill(s) Acetaminoph Yes 1 tab, PO, Memoria en 325 MG / 6-09 Q6H, PRN l Hydrocodone 06:27: for pain, H ermann Bitartrate 00 0 5 MG Oral Refill(s) Tablet [Virgil 5/325] 60 ACTUAT 2019- No 90 Memoria Budesonide 6- microgram l 0.08 06:27: =, Vinnie MG/ACTUAT 00 INHALATION Dry Powder , Bedtime, Inhaler please [Pulmicort] clarify dose, 0 Refill(s) gabapentin No 200 mg, Semaj shashi 6- PO, Q8H, 0 l 06:27: Refill(s) Vinnie 00 bisacodyl 5 No 10 mg = 2 M emoria mg oral 6-09 tab, PO, l enteric 06:27: Daily, PRN Herm avis coated 00 Constipati tablet on, # 20 tab, 0 Refill(s) Furosemide No 20 mg = 1 Me moria 20 MG Oral 6-09 tab, PO, l Tablet 06:27: Daily, # Vinnie 00 30 tab, 0 Refill(s) atorvastati Yes 10 mg = 1 M emoria n 10 mg 6-09 tab, PO, l oral tablet 06:27: Bedtime, # Lead 00 90 tab, 1 Refill(s) Aspirin 81 Yes 81 mg = 1 Me moria MG Enteric 6-09 tab, PO, l Coated 06:27: Daily, # Lead Tablet 00 90 tab, 3 Refill(s) ascorbic No 500 mg, Memori a acid 02-21 PO, Daily, l 06:27: 0 Vinnie 00 Refill(s) Fluticasone No = 1 puff, M emoria propionate 6-09 INHALATION l 0.1 06:27: , Daily, # Vinnie MG/ACTUAT 00 120 ea, 0 Dry Powder Refill(s) Inhaler Potassium No See Memoria gluconate 02-21 Instructio l 06:27: ns, please Vinnie clarify order p.o. BID, 0 Refill(s) 0.4 ML No 40 mg, Memoria Enoxaparin 02-21 SUB-Q, l sodium 100 06:27: Daily, # 7 H ermann MG/ML 00 ea, 0 Prefilled Refill(s) Syringe [Lovenox] Lake-3 No 1,000 mg = Semaj shashi 1000 mg 02-21 1 cap, PO, l oral 06:27: Daily, 0 Lead capsule 00 Refill(s) amLODIPine No 5 mg = 1 Mem oria 5 mg oral 02-21 tab, PO, l tablet 06:27: Daily, # Vinnie 00 30 tab, 0 Refill(s) Docusate No 2 tab, PO, Mem oria Sodium 50 6 BID, # 14 l MG / 06:27: tab, 0 Lead sennosides, 00 Refill(s) LONG-TERM 8.6 MG Oral Tablet Multi No 0 Memoria Vitamin+ 02-21 Refill(s) l 06:27: Lead 00 montelukast No 10 mg = 1 M emoria 10 mg oral 02-21 tab, PO, l tablet 06:27: Bedtime, # Salma nn 00 30 tab, 0 Refill(s) Rocephin 1 No IV, Daily, M emoria g injection 02-21 0 l 06:27: Refill(s) Vinnie 00 melatonin 3 No 3 mg = 1 Me moria mg oral 02-21 tab, PO, l tablet 06:27: Bedtime, Lead 00 PRN for insomnia, # 60 tab, 0 Refill(s) carvedilol No 6.25 mg = Me moria 6.25 mg 02-21 1 tab, PO, l oral tablet 06:27: BID, # 180 Lead 00 tab, 0 Refill(s) Albuterol Yes 3 mL, NEB, Me moria 0.833 MG/ML 02-21 Q4H, PRN l / 06:27: shortness Lead Ipratropium 00 of breath, Recluse 0 0.167 MG/ML Refill(s) Inhalant Solution [DuoNeb] Magnesium No 400 mg = 1 Me moria Oxide 02-21 tab, PO, l 06:27: Bedtime, # Lead 00 20 tab, 0 Refill(s) Lidocaine No 1 patch, Semaj shashi 0.05 MG/MG 02-21 TOP, l Transdermal 06:27: Daily, Herm avis Patch 00 left knee remove patches after 12 hours, 0 Refill(s) Thyroxine Yes 112 Memoria 6-09 microgram, l 06:27: PO, Daily, Lead 00 0 Refill(s) Coumadin No 5 mg, PO, Semaj shashi 6-09 QPM, every l 06:27: M,W,F, 0 Vinnie 00 Refill(s) isosorbide No 20 mg = 1 Me moria dinitrate 6-09 tab, PO, l 20 mg oral 06:27: BID, 0 Salma nn tablet 00 Refill(s) Warfarin No 2.5 mg = 1 Mem oria Sodium 2.5 6-09 tab, PO, l MG Oral 06:27: QPM, every Herm avis Tablet 00 , , , [Coumadin] 0 Refill(s) Tylenol No 650 mg, Memoria 6-09 PO, Q6H, l 06:27: PRN fever, Lead 00 0 Refill(s) Glipizide 5 No 5 mg = 1 Me moria MG Oral 6-09 tab, PO, l Tablet 06:27: Daily, 0 Vinnie 00 Refill(s) Acetaminoph Yes 1 tab, PO, Memoria en 325 MG / 6-09 Q6H, PRN l Hydrocodone 06:27: for pain, H ermann Bitartrate 00 0 5 MG Oral Refill(s) Tablet [Virgil 5/325] 60 ACTUAT No 90 Memoria Budesonide 6-09 microgram l 0.08 06:27: =, Lead MG/ACTUAT 00 INHALATION Dry Powder , Bedtime, Inhaler please [Pulmicort] clarify dose, 0 Refill(s) gabapentin No 200 mg, Semaj shashi 6-09 PO, Q8H, 0 l 06:27: Refill(s) Vinnie 00 bisacodyl 5 No 10 mg = 2 M emoria mg oral 6-09 tab, PO, l enteric 06:27: Daily, PRN Herm avis coated 00 Constipati tablet on, # 20 tab, 0 Refill(s) Furosemide No 20 mg = 1 Me moria 20 MG Oral 6-09 tab, PO, l Tablet 06:27: Daily, # Vinnie 00 30 tab, 0 Refill(s) atorvastati Yes 10 mg = 1 M emoria n 10 mg 6-09 tab, PO, l oral tablet 06:27: Bedtime, # Vinnie 00 90 tab, 1 Refill(s) Aspirin 81 2019 Yes 81 mg = 1 Me moria MG Enteric 6- tab, PO, l Coated 06:27: Daily, # Vinnie Tablet 00 90 tab, 3 Refill(s) ascorbic No 500 mg, Memori a acid 6- PO, Daily, l 06:27: 0 Lead 00 Refill(s) Fluticasone No = 1 puff, M emoria propionate - INHALATION l 0.1 06:27: , Daily, # Vinnie MG/ACTUAT 00 120 ea, 0 Dry Powder Refill(s) Inhaler Potassium No See Memoria gluconate 02-21 Instructio l 06:27: ns, please Vinnie clarify order p.o. BID, 0 Refill(s) 0.4 ML No 40 mg, Memoria Enoxaparin 02-21 SUB-Q, l sodium 100 06:27: Daily, # 7 H ermann MG/ML 00 ea, 0 Prefilled Refill(s) Syringe [Lovenox] Lake-3 No 1,000 mg = Semaj shashi 1000 mg 02-21 1 cap, PO, l oral 06:27: Daily, 0 Vinnie capsule 00 Refill(s) amLODIPine No 5 mg = 1 Mem oria 5 mg oral -09 tab, PO, l tablet 06:27: Daily, # Lead 00 30 tab, 0 Refill(s) Docusate No 2 tab, PO, Mem oria Sodium 50 6- BID, # 14 l MG / 06:27: tab, 0 Vinnie sennosides, 00 Refill(s) LONG-TERM 8.6 MG Oral Tablet Multi No 0 Memoria Vitamin+ 6-09 Refill(s) l 06:27: Lead 00 montelukast No 10 mg = 1 M emoria 10 mg oral 6-09 tab, PO, l tablet 06:27: Bedtime, # Salma nn 00 30 tab, 0 Refill(s) Rocephin 1 No IV, Daily, M emoria g injection 02-21 0 l 06:27: Refill(s) Vinnie 00 melatonin 3 2019- No 3 mg = 1 Me moria mg oral 02-21 tab, PO, l tablet 06:27: Bedtime, Lead 00 PRN for insomnia, # 60 tab, 0 Refill(s) carvedilol No 6.25 mg = Me moria 6.25 mg 02-21 1 tab, PO, l oral tablet 06:27: BID, # 180 Lead 00 tab, 0 Refill(s) Albuterol Yes 3 mL, NEB, Me moria 0.833 MG/ML 02-21 Q4H, PRN l / 06:27: shortness Lead Ipratropium 00 of breath, Recluse 0 0.167 MG/ML Refill(s) Inhalant Solution [DuoNeb] Magnesium No 400 mg = 1 Me moria Oxide - tab, PO, l 06:27: Bedtime, # Vinnie 00 20 tab, 0 Refill(s) Lidocaine No 1 patch, Semaj shashi 0.05 MG/MG 02-21 TOP, l Transdermal 06:27: Daily, Herm avis Patch 00 left knee remove patches after 12 hours, 0 Refill(s) Thyroxine Yes 112 Memoria 02-21 microgram, l 06:27: PO, Daily, Lead 00 0 Refill(s) Coumadin No 5 mg, PO, Semaj shashi 02-21 QPM, every l 06:27: M,W,F, 0 Vinnie 00 Refill(s) isosorbide No 20 mg = 1 Me moria dinitrate - tab, PO, l 20 mg oral 06:27: BID, 0 Salma nn tablet 00 Refill(s) Warfarin No 2.5 mg = 1 Mem oria Sodium 2.5 - tab, PO, l MG Oral 06:27: QPM, every Herm avis Tablet 00 , , Sa, [Coumadin] 0 Refill(s) Tylenol No 650 mg, Memoria 6-09 PO, Q6H, l 06:27: PRN fever, Vinnie 00 0 Refill(s) Glipizide 5 No 5 mg = 1 Me moria MG Oral 6-09 tab, PO, l Tablet 06:27: Daily, 0 Vinnie 00 Refill(s) Acetaminoph Yes 1 tab, PO, Memoria en 325 MG / 6-09 Q6H, PRN l Hydrocodone 06:27: for pain, H ermann Bitartrate 00 0 5 MG Oral Refill(s) Tablet [Virgil 5/325] 60 ACTUAT No 90 Memoria Budesonide 6-09 microgram l 0.08 06:27: =, Vinnie MG/ACTUAT 00 INHALATION Dry Powder , Bedtime, Inhaler please [Pulmicort] clarify dose, 0 Refill(s) gabapentin No 200 mg, Semaj shashi 6-09 PO, Q8H, 0 l 06:27: Refill(s) Lead 00 bisacodyl 5 No 10 mg = 2 M emoria mg oral 6-09 tab, PO, l enteric 06:27: Daily, PRN Herm avis coated 00 Constipati tablet on, # 20 tab, 0 Refill(s) Furosemide No 20 mg = 1 Me moria 20 MG Oral 6-09 tab, PO, l Tablet 06:27: Daily, # Vinnie 00 30 tab, 0 Refill(s) atorvastati Yes 10 mg = 1 M emoria n 10 mg 6-09 tab, PO, l oral tablet 06:27: Bedtime, # Vinnie 00 90 tab, 1 Refill(s) Aspirin 81 Yes 81 mg = 1 Me moria MG Enteric 6-09 tab, PO, l Coated 06:27: Daily, # Vinnie Tablet 00 90 tab, 3 Refill(s) ascorbic No 500 mg, Memori a acid 6-09 PO, Daily, l 06:27: 0 Vinnie 00 Refill(s) Fluticasone No = 1 puff, M emoria propionate 6-09 INHALATION l 0.1 06:27: , Daily, # Vinnie MG/ACTUAT 00 120 ea, 0 Dry Powder Refill(s) Inhaler Potassium No See Memoria gluconate 02-21 Instructio l 06:27: ns, please Lead 00 clarify order p.o. BID, 0 Refill(s) 0.4 ML No 40 mg, Memoria Enoxaparin 02-21 SUB-Q, l sodium 100 06:27: Daily, # 7 H ermann MG/ML 00 ea, 0 Prefilled Refill(s) Syringe [Lovenox] Lake-3 No 1,000 mg = Semaj shashi 1000 mg 02-21 1 cap, PO, l oral 06:27: Daily, 0 Vinnie capsule 00 Refill(s) amLODIPine No 5 mg = 1 Mem oria 5 mg oral 02-21 tab, PO, l tablet 06:27: Daily, # Lead 00 30 tab, 0 Refill(s) Docusate No 2 tab, PO, Mem oria Sodium 50 02-21 BID, # 14 l MG / 06:27: tab, 0 Vinnie sennosides, 00 Refill(s) LONG-TERM 8.6 MG Oral Tablet Multi No 0 Memoria Vitamin+ 02-21 Refill(s) l 06:27: Vinnie 00 montelukast No 10 mg = 1 M emoria 10 mg oral 02-21 tab, PO, l tablet 06:27: Bedtime, # Salma nn 00 30 tab, 0 Refill(s) Rocephin 1 No IV, Daily, M emoria g injection 02-21 0 l 06:27: Refill(s) Vinnie 00 melatonin 3 No 3 mg = 1 Me moria mg oral 02-21 tab, PO, l tablet 06:27: Bedtime, Lead 00 PRN for insomnia, # 60 tab, 0 Refill(s) carvedilol No 6.25 mg = Me moria 6.25 mg 02-21 1 tab, PO, l oral tablet 06:27: BID, # 180 Lead 00 tab, 0 Refill(s) Albuterol Yes 3 mL, NEB, Me moria 0.833 MG/ML 02-21 Q4H, PRN l / 06:27: shortness Vinnie Ipratropium 00 of breath, Recluse 0 0.167 MG/ML Refill(s) Inhalant Solution [DuoNeb] Magnesium No 400 mg = 1 Me moria Oxide 6-09 tab, PO, l 06:27: Bedtime, # Lead 00 20 tab, 0 Refill(s) Lidocaine No 1 patch, Semaj shashi 0.05 MG/MG 6- TOP, l Transdermal 06:27: Daily, Herm avis Patch 00 left knee remove patches after 12 hours, 0 Refill(s) Thyroxine Yes 112 Memoria 6-09 microgram, l 06:27: PO, Daily, Vinnie 00 0 Refill(s) Coumadin No 5 mg, PO, Semaj shashi 6-09 QPM, every l 06:27: M,W,F, 0 Lead 00 Refill(s) isosorbide No 20 mg = 1 Me moria dinitrate 6-09 tab, PO, l 20 mg oral 06:27: BID, 0 Salma nn tablet 00 Refill(s) Warfarin No 2.5 mg = 1 Mem oria Sodium 2.5 6-09 tab, PO, l MG Oral 06:27: QPM, every Herm avis Tablet 00 , , , [Coumadin] 0 Refill(s) Tylenol No 650 mg, Memoria 6-09 PO, Q6H, l 06:27: PRN fever, Vinnie 00 0 Refill(s) Glipizide 5 No 5 mg = 1 Me moria MG Oral 6-09 tab, PO, l Tablet 06:27: Daily, 0 Lead 00 Refill(s) Acetaminoph Yes 1 tab, PO, Memoria en 325 MG / 6-09 Q6H, PRN l Hydrocodone 06:27: for pain, H ermann Bitartrate 00 0 5 MG Oral Refill(s) Tablet [Virgil 5/325] 60 ACTUAT No 90 Memoria Budesonide 6-09 microgram l 0.08 06:27: =, Lead MG/ACTUAT 00 INHALATION Dry Powder , Bedtime, Inhaler please [Pulmicort] clarify dose, 0 Refill(s) gabapentin No 200 mg, Semaj shashi 6-09 PO, Q8H, 0 l 06:27: Refill(s) Vinnie 00 bisacodyl 5 No 10 mg = 2 M emoria mg oral 6-09 tab, PO, l enteric 06:27: Daily, PRN Herm avis coated 00 Constipati tablet on, # 20 tab, 0 Refill(s) Furosemide No 20 mg = 1 Me moria 20 MG Oral 6-09 tab, PO, l Tablet 06:27: Daily, # Lead 00 30 tab, 0 Refill(s) atorvastati Yes 10 mg = 1 M emoria n 10 mg 6-09 tab, PO, l oral tablet 06:27: Bedtime, # Lead 00 90 tab, 1 Refill(s) Aspirin 81 Yes 81 mg = 1 Me moria MG Enteric 6-09 tab, PO, l Coated 06:27: Daily, # Vinnie Tablet 00 90 tab, 3 Refill(s) ascorbic No 500 mg, Memori a acid 6 PO, Daily, l 06:27: 0 Vinnie 00 Refill(s) Fluticasone No = 1 puff, M emoria propionate 02-21 INHALATION l 0.1 06:27: , Daily, # Lead MG/ACTUAT 00 120 ea, 0 Dry Powder Refill(s) Inhaler Potassium No See Memoria gluconate 02-21 Instructio l 06:27: ns, please Vinnie 00 clarify order p.o. BID, 0 Refill(s) 0.4 ML No 40 mg, Memoria Enoxaparin 02-21 SUB-Q, l sodium 100 06:27: Daily, # 7 H ermann MG/ML 00 ea, 0 Prefilled Refill(s) Syringe [Lovenox] Lake-3 No 1,000 mg = Semaj shashi 1000 mg 02-21 1 cap, PO, l oral 06:27: Daily, 0 Vinnie capsule 00 Refill(s) amLODIPine No 5 mg = 1 Mem oria 5 mg oral 6-09 tab, PO, l tablet 06:27: Daily, # Vinnie 00 30 tab, 0 Refill(s) Docusate No 2 tab, PO, Mem oria Sodium 50 6-09 BID, # 14 l MG / 06:27: tab, 0 Vinnie sennosides, 00 Refill(s) LONG-TERM 8.6 MG Oral Tablet Multi No 0 Memoria Vitamin+ 02-21 Refill(s) l 06:27: Vinnie 00 montelukast No 10 mg = 1 M emoria 10 mg oral 02-21 tab, PO, l tablet 06:27: Bedtime, # Salma nn 00 30 tab, 0 Refill(s) Rocephin 1 No IV, Daily, M emoria g injection 02-21 0 l 06:27: Refill(s) Vinnie melatonin 3 No 3 mg = 1 Me moria mg oral 02-21 tab, PO, l tablet 06:27: Bedtime, Vinnie 00 PRN for insomnia, # 60 tab, 0 Refill(s) carvedilol No 6.25 mg = Me moria 6.25 mg 02-21 1 tab, PO, l oral tablet 06:27: BID, # 180 Lead 00 tab, 0 Refill(s) Albuterol Yes 3 mL, NEB, Me moria 0.833 MG/ML 02-21 Q4H, PRN l / 06:27: shortness Lead Ipratropium 00 of breath, Recluse 0 0.167 MG/ML Refill(s) Inhalant Solution [DuoNeb] Magnesium No 400 mg = 1 Me moria Oxide - tab, PO, l 06:27: Bedtime, # Lead 00 20 tab, 0 Refill(s) Lidocaine No 1 patch, Semaj shashi 0.05 MG/MG 02-21 TOP, l Transdermal 06:27: Daily, Herm avis Patch 00 left knee remove patches after 12 hours, 0 Refill(s) Thyroxine Yes 112 Memoria - microgram, l 06:27: PO, Daily, Vinnie 00 0 Refill(s) Coumadin No 5 mg, PO, Semaj shashi 6 QPM, every l 06:27: M,W,F, 0 Vinnie 00 Refill(s) isosorbide No 20 mg = 1 Me moria dinitrate - tab, PO, l 20 mg oral 06:27: BID, 0 Salma nn tablet 00 Refill(s) Warfarin No 2.5 mg = 1 Mem oria Sodium 2.5 6- tab, PO, l MG Oral 06:27: QPM, every Herm avis Tablet 00 T, , Sa, [Coumadin] 0 Refill(s) Tylenol No 650 mg, Memoria 6-09 PO, Q6H, l 06:27: PRN fever, Lead 00 0 Refill(s) Glipizide 5 No 5 mg = 1 Me moria MG Oral 6-09 tab, PO, l Tablet 06:27: Daily, 0 Lead 00 Refill(s) Acetaminoph Yes 1 tab, PO, Memoria en 325 MG / 6 Q6H, PRN l Hydrocodone 06:27: for pain, H ermann Bitartrate 00 0 5 MG Oral Refill(s) Tablet [Virgil 5/325] 60 ACTUAT No 90 Memoria Budesonide 6-09 microgram l 0.08 06:27: =, Vinnie MG/ACTUAT 00 INHALATION Dry Powder , Bedtime, Inhaler please [Pulmicort] clarify dose, 0 Refill(s) gabapentin No 200 mg, Semaj shashi 6-09 PO, Q8H, 0 l 06:27: Refill(s) Vinnie 00 bisacodyl 5 No 10 mg = 2 M emoria mg oral 6-09 tab, PO, l enteric 06:27: Daily, PRN Herm avis coated 00 Constipati tablet on, # 20 tab, 0 Refill(s) Furosemide No 20 mg = 1 Me moria 20 MG Oral 6-09 tab, PO, l Tablet 06:27: Daily, # Lead 00 30 tab, 0 Refill(s) atorvastati Yes 10 mg = 1 M emoria n 10 mg 6-09 tab, PO, l oral tablet 06:27: Bedtime, # Lead 00 90 tab, 1 Refill(s) Aspirin 81 Yes 81 mg = 1 Me moria MG Enteric 6-09 tab, PO, l Coated 06:27: Daily, # Vinnie Tablet 00 90 tab, 3 Refill(s) ascorbic No 500 mg, Memori a acid 02-21 PO, Daily, l 06:27: 0 Lead 00 Refill(s) Fluticasone No = 1 puff, M emoria propionate 02-21 INHALATION l 0.1 06:27: , Daily, # Lead MG/ACTUAT 00 120 ea, 0 Dry Powder Refill(s) Inhaler Potassium No See Memoria gluconate 02-21 Instructio l 06:27: ns, please Lead 00 clarify order p.o. BID, 0 Refill(s) 0.4 ML No 40 mg, Memoria Enoxaparin 02-21 SUB-Q, l sodium 100 06:27: Daily, # 7 H ermann MG/ML 00 ea, 0 Prefilled Refill(s) Syringe [Lovenox] Lake-3 No 1,000 mg = Semaj shashi 1000 mg 02-21 1 cap, PO, l oral 06:27: Daily, 0 Vinnie capsule 00 Refill(s) amLODIPine No 5 mg = 1 Mem oria 5 mg oral 02-21 tab, PO, l tablet 06:27: Daily, # Vinnie 00 30 tab, 0 Refill(s) Docusate No 2 tab, PO, Mem oria Sodium 50 6 BID, # 14 l MG / 06:27: tab, 0 Vinnie sennosides, 00 Refill(s) LONG-TERM 8.6 MG Oral Tablet Multi No 0 Memoria Vitamin+ 02-21 Refill(s) l 06:27: Vinnie 00 montelukast No 10 mg = 1 M emoria 10 mg oral 09 tab, PO, l tablet 06:27: Bedtime, # Salma nn 00 30 tab, 0 Refill(s) Rocephin 1 No IV, Daily, M emoria g injection 09 0 l 06:27: Refill(s) Vinnie 00 melatonin 3 No 3 mg = 1 Me moria mg oral 6-09 tab, PO, l tablet 06:27: Bedtime, Lead 00 PRN for insomnia, # 60 tab, 0 Refill(s) carvedilol No 6.25 mg = Me moria 6.25 mg 6- 1 tab, PO, l oral tablet 06:27: BID, # 180 Lead 00 tab, 0 Refill(s) Albuterol Yes 3 mL, NEB, Me moria 0.833 MG/ML 02-21 Q4H, PRN l / 06:27: shortness Lead Ipratropium 00 of breath, Recluse 0 0.167 MG/ML Refill(s) Inhalant Solution [DuoNeb] Magnesium No 400 mg = 1 Me moria Oxide -09 tab, PO, l 06:27: Bedtime, # Lead 00 20 tab, 0 Refill(s) Lidocaine No 1 patch, Semaj shashi 0.05 MG/MG 02-21 TOP, l Transdermal 06:27: Daily, Herm avis Patch 00 left knee remove patches after 12 hours, 0 Refill(s) Thyroxine Yes 112 Memoria 6- microgram, l 06:27: PO, Daily, Vinnie 00 0 Refill(s) Coumadin No 5 mg, PO, Semaj shashi 02-21 QPM, every l 06:27: M,W,F, 0 Lead 00 Refill(s) isosorbide No 20 mg = 1 Me moria dinitrate -09 tab, PO, l 20 mg oral 06:27: BID, 0 Salma nn tablet 00 Refill(s) Warfarin No 2.5 mg = 1 Mem oria Sodium 2.5 02-21 tab, PO, l MG Oral 06:27: QPM, every Herm avis Tablet 00 , , , [Coumadin] 0 Refill(s) Tylenol No 650 mg, Memoria -09 PO, Q6H, l 06:27: PRN fever, Vinnie 00 0 Refill(s) Glipizide 5 No 5 mg = 1 Me moria MG Oral 6-09 tab, PO, l Tablet 06:27: Daily, 0 Lead 00 Refill(s) Acetaminoph Yes 1 tab, PO, Memoria en 325 MG / 02-21 Q6H, PRN l Hydrocodone 06:27: for pain, H ermann Bitartrate 00 0 5 MG Oral Refill(s) Tablet [Virgil 5/325] 60 ACTUAT 2018- No 90 Memoria Budesonide 6-09 microgram l 0.08 06:27: =, Vinnie MG/ACTUAT 00 INHALATION Dry Powder , Bedtime, Inhaler please [Pulmicort] clarify dose, 0 Refill(s) gabapentin No 200 mg, Semaj shashi 02-21 PO, Q8H, 0 l 06:27: Refill(s) Vinnie 00 bisacodyl 5 No 10 mg = 2 M emoria mg oral 6-09 tab, PO, l enteric 06:27: Daily, PRN Herm avis coated 00 Constipati tablet on, # 20 tab, 0 Refill(s) Furosemide No 20 mg = 1 Me moria 20 MG Oral 6-09 tab, PO, l Tablet 06:27: Daily, # Vinnie 00 30 tab, 0 Refill(s) atorvastati Yes 10 mg = 1 M emoria n 10 mg 02-21 tab, PO, l oral tablet 06:27: Bedtime, # Vinnie 00 90 tab, 1 Refill(s) Aspirin 81 Yes 81 mg = 1 Me moria MG Enteric 6- tab, PO, l Coated 06:27: Daily, # Lead Tablet 00 90 tab, 3 Refill(s) ascorbic No 500 mg, Memori a acid 02-21 PO, Daily, l 06:27: 0 Lead 00 Refill(s) Fluticasone No = 1 puff, M emoria propionate 02-21 INHALATION l 0.1 06:27: , Daily, # Vinnie MG/ACTUAT 00 120 ea, 0 Dry Powder Refill(s) Inhaler Potassium No See Memoria gluconate 02-21 Instructio l 06:27: ns, please Vinnie 00 clarify order p.o. BID, 0 Refill(s) 0.4 ML No 40 mg, Memoria Enoxaparin 02-21 SUB-Q, l sodium 100 06:27: Daily, # 7 H ermann MG/ML 00 ea, 0 Prefilled Refill(s) Syringe [Lovenox] Lake-3 No 1,000 mg = Semaj shashi 1000 mg 6-09 1 cap, PO, l oral 06:27: Daily, 0 Lead capsule 00 Refill(s) amLODIPine No 5 mg = 1 Mem oria 5 mg oral 6-09 tab, PO, l tablet 06:27: Daily, # Vinnie 00 30 tab, 0 Refill(s) Docusate No 2 tab, PO, Mem oria Sodium 50 6 BID, # 14 l MG / 06:27: tab, 0 Lead sennosides, 00 Refill(s) LONG-TERM 8.6 MG Oral Tablet Multi No 0 Memoria Vitamin+ 609 Refill(s) l 06:27: Lead 00 montelukast No 10 mg = 1 M emoria 10 mg oral 6-09 tab, PO, l tablet 06:27: Bedtime, # Salma nn 00 30 tab, 0 Refill(s) Rocephin 1 No IV, Daily, M emoria g injection 09 0 l 06:27: Refill(s) Vinnie 00 melatonin 3 No 3 mg = 1 Me moria mg oral 09 tab, PO, l tablet 06:27: Bedtime, Vinnie 00 PRN for insomnia, # 60 tab, 0 Refill(s) carvedilol No 6.25 mg = Me moria 6.25 mg 02-21 1 tab, PO, l oral tablet 06:27: BID, # 180 Vinnie 00 tab, 0 Refill(s) Albuterol Yes 3 mL, NEB, Me moria 0.833 MG/ML 02-21 Q4H, PRN l / 06:27: shortness Vinnie Ipratropium 00 of breath, Recluse 0 0.167 MG/ML Refill(s) Inhalant Solution [DuoNeb] Magnesium No 400 mg = 1 Me moria Oxide 6-09 tab, PO, l 06:27: Bedtime, # Vinnie 00 20 tab, 0 Refill(s) Lidocaine No 1 patch, Semaj shashi 0.05 MG/MG 6 TOP, l Transdermal 06:27: Daily, Herm avis Patch 00 left knee remove patches after 12 hours, 0 Refill(s) Thyroxine Yes 112 Memoria 6-09 microgram, l 06:27: PO, Daily, Vinnie 00 0 Refill(s) Coumadin No 5 mg, PO, Semaj shashi 6-09 QPM, every l 06:27: M,W,F, 0 Vinnie 00 Refill(s) isosorbide No 20 mg = 1 Me moria dinitrate 6-09 tab, PO, l 20 mg oral 06:27: BID, 0 Salma nn tablet 00 Refill(s) Warfarin No 2.5 mg = 1 Mem oria Sodium 2.5 6-09 tab, PO, l MG Oral 06:27: QPM, every Herm avis Tablet 00 T, , Sa, [Coumadin] 0 Refill(s) Tylenol No 650 mg, Memoria 6-09 PO, Q6H, l 06:27: PRN fever, Lead 00 0 Refill(s) Glipizide 5 No 5 mg = 1 Me moria MG Oral 6-09 tab, PO, l Tablet 06:27: Daily, 0 Vinnie 00 Refill(s) Acetaminoph Yes 1 tab, PO, Memoria en 325 MG / 6-09 Q6H, PRN l Hydrocodone 06:27: for pain, H ermann Bitartrate 00 0 5 MG Oral Refill(s) Tablet [Virgil 5/325] 60 ACTUAT No 90 Memoria Budesonide 6-09 microgram l 0.08 06:27: =, Vinnie MG/ACTUAT 00 INHALATION Dry Powder , Bedtime, Inhaler please [Pulmicort] clarify dose, 0 Refill(s) gabapentin No 200 mg, Semaj shashi 6-09 PO, Q8H, 0 l 06:27: Refill(s) Vinnie 00 bisacodyl 5 No 10 mg = 2 M emoria mg oral 6-09 tab, PO, l enteric 06:27: Daily, PRN [...] mg = 1 Me moria MG Enteric 02-21 tab, PO, l Coated 06:27: Daily, # Lead Tablet 00 90 tab, 3 Refill(s) ascorbic No 500 mg, Memori a acid 6 PO, Daily, l 06:27: 0 Lead 00 Refill(s) Fluticasone No = 1 puff, M emoria propionate 02-21 INHALATION l 0.1 06:27: , Daily, # Vinnie MG/ACTUAT 00 120 ea, 0 Dry Powder Refill(s) Inhaler Potassium No See Memoria gluconate 02-21 Instructio l 06:27: ns, please Lead 00 clarify order p.o. BID, 0 Refill(s) 0.4 ML No 40 mg, Memoria Enoxaparin 02-21 SUB-Q, l sodium 100 06:27: Daily, # 7 H ermann MG/ML 00 ea, 0 Prefilled Refill(s) Syringe [Lovenox] Lake-3 No 1,000 mg = Semaj shashi 1000 mg 02-21 1 cap, PO, l oral 06:27: Daily, 0 Lead capsule 00 Refill(s) amLODIPine No 5 mg = 1 Mem oria 5 mg oral 02-21 tab, PO, l tablet 06:27: Daily, # Lead 00 30 tab, 0 Refill(s) Docusate No 2 tab, PO, Mem oria Sodium 50 6 BID, # 14 l MG / 06:27: tab, 0 Vinnie sennosides, 00 Refill(s) LONG-TERM 8.6 MG Oral Tablet Multi No 0 Memoria Vitamin+ 09 Refill(s) l 06:27: Vinnie 00 montelukast No 10 mg = 1 M emoria 10 mg oral 6-09 tab, PO, l tablet 06:27: Bedtime, # Salma nn 00 30 tab, 0 Refill(s) Rocephin 1 No IV, Daily, M emoria g injection 6-09 0 l 06:27: Refill(s) Vinnie 00 melatonin 3 No 3 mg = 1 Me moria mg oral -09 tab, PO, l tablet 06:27: Bedtime, Lead 00 PRN for insomnia, # 60 tab, 0 Refill(s) carvedilol No 6.25 mg = Me moria 6.25 mg 02-21 1 tab, PO, l oral tablet 06:27: BID, # 180 Vinnie 00 tab, 0 Refill(s) Albuterol Yes 3 mL, NEB, Me moria 0.833 MG/ML 02-21 Q4H, PRN l / 06:27: shortness Vinnie Ipratropium 00 of breath, Recluse 0 0.167 MG/ML Refill(s) Inhalant Solution [DuoNeb] Magnesium No 400 mg = 1 Me moria Oxide - tab, PO, l 06:27: Bedtime, # Vinnie 00 20 tab, 0 Refill(s) Lidocaine No 1 patch, Semaj shashi 0.05 MG/MG 02-21 TOP, l Transdermal 06:27: Daily, Herm avis Patch 00 left knee remove patches after 12 hours, 0 Refill(s) Thyroxine Yes 112 Memoria 02-21 microgram, l 06:27: PO, Daily, Vinnie 00 0 Refill(s) Coumadin No 5 mg, PO, Semaj shashi 6 QPM, every l 06:27: M,W,F, 0 Vinnie 00 Refill(s) isosorbide No 20 mg = 1 Me moria dinitrate - tab, PO, l 20 mg oral 06:27: BID, 0 Salma nn tablet 00 Refill(s) Warfarin No 2.5 mg = 1 Mem oria Sodium 2.5 6-09 tab, PO, l MG Oral 06:27: QPM, every Herm avis Tablet 00 T, , , [Coumadin] 0 Refill(s) Tylenol No 650 mg, Memoria 6-09 PO, Q6H, l 06:27: PRN fever, Lead 00 0 Refill(s) Glipizide 5 No 5 mg = 1 Me moria MG Oral 6-09 tab, PO, l Tablet 06:27: Daily, 0 Lead 00 Refill(s) Acetaminoph Yes 1 tab, PO, Memoria en 325 MG / 6-09 Q6H, PRN l Hydrocodone 06:27: for pain, H ermann Bitartrate 00 0 5 MG Oral Refill(s) Tablet [Virgil 5/325] 60 ACTUAT No 90 Memoria Budesonide 6- microgram l 0.08 06:27: =, Lead MG/ACTUAT 00 INHALATION Dry Powder , Bedtime, Inhaler please [Pulmicort] clarify dose, 0 Refill(s) gabapentin No 200 mg, Semaj shashi 6- PO, Q8H, 0 l 06:27: Refill(s) Lead 00 bisacodyl 5 No 10 mg = 2 M emoria mg oral 6- tab, PO, l enteric 06:27: Daily, PRN Herm avis coated 00 Constipati tablet on, # 20 tab, 0 Refill(s) Furosemide No 20 mg = 1 Me moria 20 MG Oral 6-09 tab, PO, l Tablet 06:27: Daily, # Lead 00 30 tab, 0 Refill(s) atorvastati Yes 10 mg = 1 M emoria n 10 mg 6-09 tab, PO, l oral tablet 06:27: Bedtime, # Vinnie 00 90 tab, 1 Refill(s) Aspirin 81 Yes 81 mg = 1 Me moria MG Enteric 6-09 tab, PO, l Coated 06:27: Daily, # Lead Tablet 00 90 tab, 3 Refill(s) ascorbic No 500 mg, Memori a acid 6-09 PO, Daily, l 06:27: 0 Lead 00 Refill(s) Fluticasone No = 1 puff, M emoria propionate 6-09 INHALATION l 0.1 06:27: , Daily, # Vinnie MG/ACTUAT 00 120 ea, 0 Dry Powder Refill(s) Inhaler Potassium No See Memoria gluconate 02-21 Instructio l 06:27: ns, please Lead clarify order p.o. BID, 0 Refill(s) 0.4 ML No 40 mg, Memoria Enoxaparin 02-21 SUB-Q, l sodium 100 06:27: Daily, # 7 H ermann MG/ML 00 ea, 0 Prefilled Refill(s) Syringe [Lovenox] Lake-3 No 1,000 mg = Semaj shahsi 1000 mg 02-21 1 cap, PO, l oral 06:27: Daily, 0 Vinnie capsule 00 Refill(s) amLODIPine No 5 mg = 1 Mem oria 5 mg oral 02-21 tab, PO, l tablet 06:27: Daily, # Lead 00 30 tab, 0 Refill(s) Docusate No 2 tab, PO, Mem oria Sodium 50 6 BID, # 14 l MG / 06:27: tab, 0 Lead sennosides, 00 Refill(s) LONG-TERM 8.6 MG Oral Tablet Multi No 0 Memoria Vitamin+ 02-21 Refill(s) l 06:27: Lead 00 montelukast No 10 mg = 1 M emoria 10 mg oral 02-21 tab, PO, l tablet 06:27: Bedtime, # Salma nn 00 30 tab, 0 Refill(s) Rocephin 1 No IV, Daily, M emoria g injection 02-21 0 l 06:27: Refill(s) Lead 00 melatonin 3 No 3 mg = 1 Me moria mg oral 02-21 tab, PO, l tablet 06:27: Bedtime, Lead 00 PRN for insomnia, # 60 tab, 0 Refill(s) carvedilol No 6.25 mg = Me moria 6.25 mg 02-21 1 tab, PO, l oral tablet 06:27: BID, # 180 Lead 00 tab, 0 Refill(s) Albuterol Yes 3 mL, NEB, Me moria 0.833 MG/ML 02-21 Q4H, PRN l / 06:27: shortness Lead Ipratropium 00 of breath, Recluse 0 0.167 MG/ML Refill(s) Inhalant Solution [DuoNeb] Magnesium No 400 mg = 1 Me moria Oxide 6-09 tab, PO, l 06:27: Bedtime, # Lead 00 20 tab, 0 Refill(s) Lidocaine No 1 patch, Semaj shashi 0.05 MG/MG 6 TOP, l Transdermal 06:27: Daily, Herm avis Patch 00 left knee remove patches after 12 hours, 0 Refill(s) Thyroxine Yes 112 Memoria 6-09 microgram, l 06:27: PO, Daily, Lead 00 0 Refill(s) Coumadin No 5 mg, PO, Semaj shashi 6-09 QPM, every l 06:27: M,W,F, 0 Lead 00 Refill(s) isosorbide No 20 mg = 1 Me moria dinitrate 6-09 tab, PO, l 20 mg oral 06:27: BID, 0 Salma nn tablet 00 Refill(s) Warfarin No 2.5 mg = 1 Mem oria Sodium 2.5 6-09 tab, PO, l MG Oral 06:27: QPM, every Herm avis Tablet 00 , , , [Coumadin] 0 Refill(s) Tylenol No 650 mg, Memoria 6-09 PO, Q6H, l 06:27: PRN fever, Vinnie 00 0 Refill(s) Glipizide 5 No 5 mg = 1 Me moria MG Oral 6-09 tab, PO, l Tablet 06:27: Daily, 0 Vinnie 00 Refill(s) Acetaminoph Yes 1 tab, PO, Memoria en 325 MG / 6-09 Q6H, PRN l Hydrocodone 06:27: for pain, H ermann Bitartrate 00 0 5 MG Oral Refill(s) Tablet [Virgil 5/325] 60 ACTUAT No 90 Memoria Budesonide 6-09 microgram l 0.08 06:27: =, Lead MG/ACTUAT 00 INHALATION Dry Powder , Bedtime, Inhaler please [Pulmicort] clarify dose, 0 Refill(s) gabapentin No 200 mg, Semaj shashi 6-09 PO, Q8H, 0 l 06:27: Refill(s) Vinnie 00 bisacodyl 5 No 10 mg = 2 M emoria mg oral 6-09 tab, PO, l enteric 06:27: Daily, PRN Herm avis coated 00 Constipati tablet on, # 20 tab, 0 Refill(s) Furosemide No 20 mg = 1 Me moria 20 MG Oral 6-09 tab, PO, l Tablet 06:27: Daily, # Vinnie 00 30 tab, 0 Refill(s) atorvastati Yes 10 mg = 1 M emoria n 10 mg 02-21 tab, PO, l oral tablet 06:27: Bedtime, # Lead 00 90 tab, 1 Refill(s) Aspirin 81 Yes 81 mg = 1 Me moria MG Enteric 02-21 tab, PO, l Coated 06:27: Daily, # Lead Tablet 00 90 tab, 3 Refill(s) ascorbic No 500 mg, Memori a acid 02-21 PO, Daily, l 06:27: 0 Vinnie 00 Refill(s) Fluticasone No = 1 puff, M emoria propionate 02-21 INHALATION l 0.1 06:27: , Daily, # Lead MG/ACTUAT 00 120 ea, 0 Dry Powder Refill(s) Inhaler Potassium No See Memoria gluconate 02-21 Instructio l 06:27: ns, please Lead 00 clarify order p.o. BID, 0 Refill(s) 0.4 ML No 40 mg, Memoria Enoxaparin 02-21 SUB-Q, l sodium 100 06:27: Daily, # 7 H ermann MG/ML 00 ea, 0 Prefilled Refill(s) Syringe [Lovenox] Lake-3 No 1,000 mg = Semaj shashi 1000 mg 02-21 1 cap, PO, l oral 06:27: Daily, 0 Vinnie capsule 00 Refill(s) amLODIPine No 5 mg = 1 Mem oria 5 mg oral 09 tab, PO, l tablet 06:27: Daily, # Lead 00 30 tab, 0 Refill(s) Docusate No 2 tab, PO, Mem oria Sodium 50 6 BID, # 14 l MG / 06:27: tab, 0 Lead sennosides, 00 Refill(s) LONG-TERM 8.6 MG Oral Tablet Multi No 0 Memoria Vitamin+ 6-09 Refill(s) l 06:27: Vinnie 00 montelukast No 10 mg = 1 M emoria 10 mg oral -09 tab, PO, l tablet 06:27: Bedtime, # Salma nn 00 30 tab, 0 Refill(s) Rocephin 1 No IV, Daily, M emoria g injection 02-21 0 l 06:27: Refill(s) Vinnie 00 melatonin 3 2018- No 3 mg = 1 Me moria mg oral -09 tab, PO, l tablet 06:27: Bedtime, Vinnie 00 PRN for insomnia, # 60 tab, 0 Refill(s) carvedilol No 6.25 mg = Me moria 6.25 mg 02-21 1 tab, PO, l oral tablet 06:27: BID, # 180 Vinnie 00 tab, 0 Refill(s) Albuterol Yes 3 mL, NEB, Me moria 0.833 MG/ML 02-21 Q4H, PRN l / 06:27: shortness Vinnie Ipratropium 00 of breath, Recluse 0 0.167 MG/ML Refill(s) Inhalant Solution [DuoNeb] Magnesium No 400 mg = 1 Me moria Oxide - tab, PO, l 06:27: Bedtime, # Vinnie 00 20 tab, 0 Refill(s) Lidocaine No 1 patch, Semaj shashi 0.05 MG/MG 02-21 TOP, l Transdermal 06:27: Daily, Herm avis Patch 00 left knee remove patches after 12 hours, 0 Refill(s) Thyroxine Yes 112 Memoria - microgram, l 06:27: PO, Daily, Lead 00 0 Refill(s) Coumadin No 5 mg, PO, Semaj shashi 6- QPM, every l 06:27: M,W,F, 0 Lead 00 Refill(s) isosorbide No 20 mg = 1 Me moria dinitrate 6-09 tab, PO, l 20 mg oral 06:27: BID, 0 Salma nn tablet 00 Refill(s) Warfarin No 2.5 mg = 1 Mem oria Sodium 2.5 6-09 tab, PO, l MG Oral 06:27: QPM, every Herm avis Tablet 00 , , , [Coumadin] 0 Refill(s) Tylenol No 650 mg, Memoria 6-09 PO, Q6H, l 06:27: PRN fever, Vinnie 00 0 Refill(s) Glipizide 5 No 5 mg = 1 Me moria MG Oral 6-09 tab, PO, l Tablet 06:27: Daily, 0 Lead 00 Refill(s) Acetaminoph Yes 1 tab, PO, Memoria en 325 MG / 6- Q6H, PRN l Hydrocodone 06:27: for pain, H ermann Bitartrate 00 0 5 MG Oral Refill(s) Tablet [Virgil 5/325] 60 ACTUAT No 90 Memoria Budesonide 6-09 microgram l 0.08 06:27: =, Vinnie MG/ACTUAT 00 INHALATION Dry Powder , Bedtime, Inhaler please [Pulmicort] clarify dose, 0 Refill(s) gabapentin No 200 mg, Semaj shashi 6-09 PO, Q8H, 0 l 06:27: Refill(s) Vinnie 00 bisacodyl 5 No 10 mg = 2 M emoria mg oral 6-09 tab, PO, l enteric 06:27: Daily, PRN Herm avis coated 00 Constipati tablet on, # 20 tab, 0 Refill(s) Furosemide No 20 mg = 1 Me moria 20 MG Oral 6-09 tab, PO, l Tablet 06:27: Daily, # Lead 00 30 tab, 0 Refill(s) atorvastati Yes 10 mg = 1 M emoria n 10 mg 6-09 tab, PO, l oral tablet 06:27: Bedtime, # Vinnie 00 90 tab, 1 Refill(s) Aspirin 81 Yes 81 mg = 1 Me moria MG Enteric 6-09 tab, PO, l Coated 06:27: Daily, # Lead Tablet 00 90 tab, 3 Refill(s) ascorbic No 500 mg, Memori a acid 6-09 PO, Daily, l 06:27: 0 Vinnie 00 Refill(s) Fluticasone No = 1 puff, M emoria propionate - INHALATION l 0.1 06:27: , Daily, # Vinnie MG/ACTUAT 00 120 ea, 0 Dry Powder Refill(s) Inhaler Potassium No See Memoria gluconate 02-21 Instructio l 06:27: ns, please Lead 00 clarify order p.o. BID, 0 Refill(s) 0.4 ML No 40 mg, Memoria Enoxaparin 02-21 SUB-Q, l sodium 100 06:27: Daily, # 7 H ermann MG/ML 00 ea, 0 Prefilled Refill(s) Syringe [Lovenox] Lake-3 No 1,000 mg = Semaj shashi 1000 mg 02-21 1 cap, PO, l oral 06:27: Daily, 0 Lead capsule 00 Refill(s) amLODIPine No 5 mg = 1 Mem oria 5 mg oral 02-21 tab, PO, l tablet 06:27: Daily, # Lead 00 30 tab, 0 Refill(s) Docusate No 2 tab, PO, Mem oria Sodium 50 6 BID, # 14 l MG / 06:27: tab, 0 Lead sennosides, 00 Refill(s) LONG-TERM 8.6 MG Oral Tablet Multi No 0 Memoria Vitamin+ 02-21 Refill(s) l 06:27: Vinnie 00 montelukast No 10 mg = 1 M emoria 10 mg oral 02-21 tab, PO, l tablet 06:27: Bedtime, # Salma nn 00 30 tab, 0 Refill(s) Rocephin 1 0 No IV, Daily, M emoria g injection 02-21 0 l 06:27: Refill(s) Lead 00 melatonin 3 No 3 mg = 1 Me moria mg oral -09 tab, PO, l tablet 06:27: Bedtime, Lead 00 PRN for insomnia, # 60 tab, 0 Refill(s) carvedilol No 6.25 mg = Me moria 6.25 mg 02-21 1 tab, PO, l oral tablet 06:27: BID, # 180 Lead 00 tab, 0 Refill(s) Albuterol Yes 3 mL, NEB, Me moria 0.833 MG/ML 6 Q4H, PRN l / 06:27: shortness Lead Ipratropium 00 of breath, Recluse 0 0.167 MG/ML Refill(s) Inhalant Solution [DuoNeb] Magnesium No 400 mg = 1 Me moria Oxide 6-09 tab, PO, l 06:27: Bedtime, # Lead 00 20 tab, 0 Refill(s) Lidocaine No 1 patch, Semaj shashi 0.05 MG/MG 6 TOP, l Transdermal 06:27: Daily, Herm avis Patch 00 left knee remove patches after 12 hours, 0 Refill(s) Thyroxine Yes 112 Memoria 6-09 microgram, l 06:27: PO, Daily, Vinnie 00 0 Refill(s) Coumadin No 5 mg, PO, Semaj shashi 6 QPM, every l 06:27: M,W,F, 0 Vinnie 00 Refill(s) isosorbide No 20 mg = 1 Me moria dinitrate 6-09 tab, PO, l 20 mg oral 06:27: BID, 0 Salma nn tablet 00 Refill(s) Warfarin No 2.5 mg = 1 Mem oria Sodium 2.5 6-09 tab, PO, l MG Oral 06:27: QPM, every Herm avis Tablet 00 , , , [Coumadin] 0 Refill(s) Tylenol No 650 mg, Memoria 6-09 PO, Q6H, l 06:27: PRN fever, Vinnie 00 0 Refill(s) Glipizide 5 No 5 mg = 1 Me moria MG Oral 6-09 tab, PO, l Tablet 06:27: Daily, 0 Vinnie 00 Refill(s) Acetaminoph Yes 1 tab, PO, Memoria en 325 MG / 6-09 Q6H, PRN l Hydrocodone 06:27: for pain, H ermann Bitartrate 00 0 5 MG Oral Refill(s) Tablet [Virgil 5/325] 60 ACTUAT No 90 Memoria Budesonide 6-09 microgram l 0.08 06:27: =, Lead MG/ACTUAT 00 INHALATION Dry Powder , Bedtime, Inhaler please [Pulmicort] clarify dose, 0 Refill(s) gabapentin No 200 mg, Semaj shashi 6- PO, Q8H, 0 l 06:27: Refill(s) Lead 00 bisacodyl 5 No 10 mg = 2 M emoria mg oral 6-09 tab, PO, l enteric 06:27: Daily, PRN Herm avis coated 00 Constipati tablet on, # 20 tab, 0 Refill(s) Furosemide No 20 mg = 1 Me moria 20 MG Oral 6-09 tab, PO, l Tablet 06:27: Daily, # Vinnie 00 30 tab, 0 Refill(s) atorvastati Yes 10 mg = 1 M emoria n 10 mg 6-09 tab, PO, l oral tablet 06:27: Bedtime, # Vinnie 00 90 tab, 1 Refill(s) Aspirin 81 Yes 81 mg = 1 Me moria MG Enteric 6- tab, PO, l Coated 06:27: Daily, # Lead Tablet 00 90 tab, 3 Refill(s) ascorbic No 500 mg, Memori a acid 6 PO, Daily, l 06:27: 0 Vinnie 00 Refill(s) Fluticasone No = 1 puff, M emoria propionate 6- INHALATION l 0.1 06:27: , Daily, # Vinnie MG/ACTUAT 00 120 ea, 0 Dry Powder Refill(s) Inhaler Potassium No See Memoria gluconate 02-21 Instructio l 06:27: ns, please Lead 00 clarify order p.o. BID, 0 Refill(s) 0.4 ML No 40 mg, Memoria Enoxaparin 02-21 SUB-Q, l sodium 100 06:27: Daily, # 7 H ermann MG/ML 00 ea, 0 Prefilled Refill(s) Syringe [Lovenox] Lake-3 No 1,000 mg = Semaj shashi 1000 mg 02-21 1 cap, PO, l oral 06:27: Daily, 0 Lead capsule 00 Refill(s) amLODIPine No 5 mg = 1 Mem oria 5 mg oral 6- tab, PO, l tablet 06:27: Daily, # Lead 00 30 tab, 0 Refill(s) Docusate No 2 tab, PO, Mem oria Sodium 50 6 BID, # 14 l MG / 06:27: tab, 0 Vinnie sennosides, 00 Refill(s) LONG-TERM 8.6 MG Oral Tablet Multi No 0 Memoria Vitamin+ 02-21 Refill(s) l 06:27: Vinnie 00 montelukast No 10 mg = 1 M emoria 10 mg oral 02-21 tab, PO, l tablet 06:27: Bedtime, # Salma nn 00 30 tab, 0 Refill(s) Rocephin 1 No IV, Daily, M emoria g injection 02-21 0 l 06:27: Refill(s) Lead 00 melatonin 3 No 3 mg = 1 Me moria mg oral 02-21 tab, PO, l tablet 06:27: Bedtime, Vinnie 00 PRN for insomnia, # 60 tab, 0 Refill(s) carvedilol No 6.25 mg = Me moria 6.25 mg 02-21 1 tab, PO, l oral tablet 06:27: BID, # 180 Lead 00 tab, 0 Refill(s) Albuterol Yes 3 mL, NEB, Me moria 0.833 MG/ML 02-21 Q4H, PRN l / 06:27: shortness Vinnie Ipratropium 00 of breath, Recluse 0 0.167 MG/ML Refill(s) Inhalant Solution [DuoNeb] Magnesium No 400 mg = 1 Me moria Oxide 02-21 tab, PO, l 06:27: Bedtime, # Vinnie 00 20 tab, 0 Refill(s) Lidocaine No 1 patch, Semaj shashi 0.05 MG/MG 02-21 TOP, l Transdermal 06:27: Daily, Herm avis Patch 00 left knee remove patches after 12 hours, 0 Refill(s) Thyroxine Yes 112 Memoria 02-21 microgram, l 06:27: PO, Daily, Vinnie 00 0 Refill(s) ocular No Notes: Memoria lubricant 6-09 (Same as: l 05:00: Lacri-Lube Vinnie 00 , Puralube, Duratears Naturale, Artificial Tears, and Tears Again ) ocular 2019-0 No Notes: Memoria lubricant 6-09 (Same as: l 05:00: Lacri-Lube Vinnie 00 , Puralube, Duratears Naturale, Artificial Tears, and Tears Again ) ocular 2019-0 No Notes: Memoria lubricant 6- (Same as: l 05:00: Lacri-Lube Vinnie 00 , Puralube, Duratears Naturale, Artificial Tears, and Tears Again ) ocular 2019-0 No Notes: Memoria lubricant 6- (Same as: l 05:00: Lacri-Lube Lead 00 , Puralube, Duratears Naturale, Artificial Tears, and Tears Again ) ocular 2019-0 No Notes: Memoria lubricant 6- (Same as: l 05:00: Lacri-Lube Lead 00 , Puralube, Duratears Naturale, Artificial Tears, and Tears Again ) ocular 2019-0 No Notes: Memoria lubricant 6- (Same as: l 05:00: Lacri-Lube Lead 00 , Puralube, Duratears Naturale, Artificial Tears, and Tears Again ) ocular 2019-0 No Notes: Memoria lubricant 6- (Same as: l 05:00: Lacri-Lube Lead 00 , Puralube, Duratears Naturale, Artificial Tears, and Tears Again ) ocular 2019-0 No Notes: Memoria lubricant 6- (Same as: l 05:00: Lacri-Lube Lead 00 , Puralube, Duratears Naturale, Artificial Tears, and Tears Again ) ocular 2019-0 No Notes: Memoria lubricant 6-09 (Same as: l 05:00: Lacri-Lube Vinnie 00 , Puralube, Duratears Naturale, Artificial Tears, and Tears Again ) ocular 2019-0 No Notes: Memoria lubricant 6-09 (Same as: l 05:00: Lacri-Lube Lead 00 , Puralube, Duratears Naturale, Artificial Tears, and Tears Again ) ocular 2019-0 No Notes: Memoria lubricant 6-09 (Same as: l 05:00: Lacri-Lube Vinnie 00 , Puralube, Duratears Naturale, Artificial Tears, and Tears Again ) ocular 2019-0 No Notes: Memoria lubricant 6-09 (Same as: l 05:00: Lacri-Lube Vinnie 00 , Puralube, Duratears Naturale, Artificial Tears, and Tears Again ) ocular 2019-0 No Notes: Memoria lubricant 6- (Same as: l 05:00: Lacri-Lube Vinnie 00 , Puralube, Duratears Naturale, Artificial Tears, and Tears Again ) ocular 2019-0 No Notes: Memoria lubricant 6- (Same as: l 05:00: Lacri-Lube Vinnie 00 , Puralube, Duratears Naturale, Artificial Tears, and Tears Again ) ocular 2019-0 No Notes: Memoria lubricant 6- (Same as: l 05:00: Lacri-Lube Lead 00 , Puralube, Duratears Naturale, Artificial Tears, and Tears Again ) ocular 2019-0 No Notes: Memoria lubricant 6- (Same as: l 05:00: Lacri-Lube Lead 00 , Puralube, Duratears Naturale, Artificial Tears, and Tears Again ) ocular 2019-0 No Notes: Memoria lubricant 6-09 (Same as: l 05:00: Lacri-Lube Lead 00 , Puralube, Duratears Naturale, Artificial Tears, and Tears Again ) ocular 2019-0 No Notes: Memoria lubricant 6- (Same as: l 05:00: Lacri-Lube Vinnie 00 , Puralube, Duratears Naturale, Artificial Tears, and Tears Again ) ocular 2019-0 No Notes: Memoria lubricant 6-09 (Same as: l 05:00: Lacri-Lube Vinnie 00 , Puralube, Duratears Naturale, Artificial Tears, and Tears Again ) ocular 2019-0 No Notes: Memoria lubricant 6-09 (Same as: l 05:00: Lacri-Lube Vinnie 00 , Puralube, Duratears Naturale, Artificial Tears, and Tears Again ) ocular 2019-0 No Notes: Memoria lubricant 6-09 (Same as: l 05:00: Lacri-Lube Lead 00 , Puralube, Duratears Naturale, Artificial Tears, and Tears Again ) ocular No Notes: Memoria lubricant 6-09 (Same as: l 05:00: Lacri-Lube Vinnie 00 , Puralube, Duratears Naturale, Artificial Tears, and Tears Again ) ocular No Notes: Memoria lubricant 6-09 (Same as: l 05:00: Lacri-Lube Lead 00 , Puralube, Duratears Naturale, Artificial Tears, and Tears Again ) ocular No Notes: Memoria lubricant 6-09 (Same as: l 05:00: Lacri-Lube Lead 00 , Puralube, Duratears Naturale, Artificial Tears, and Tears Again ) ocular No Notes: Memoria lubricant 6-09 (Same as: l 05:00: Lacri-Lube Lead 00 , Puralube, Duratears Naturale, Artificial Tears, and Tears Again ) ocular No Notes: Memoria lubricant 6-09 (Same as: l 05:00: Lacri-Lube Lead 00 , Puralube, Duratears Naturale, Artificial Tears, and Tears Again ) ocular No Notes: Memoria lubricant 6-09 (Same as: l 05:00: Lacri-Lube Vinnie 00 , Puralube, Duratears Naturale, Artificial Tears, and Tears Again ) propofol No Notes: If M emoria mg/mL 6- Diprivan - l (Titrate.) 02:55: change Salma nn IV 1,000 mg 00 bottle & tubing every 12 hr Per state nursing law propofol can only be given by a nurse if patient is intubated or being intubated (unless the nurse is a UTILITY AGENT). Same as: Diprivan propofol No Notes: If M emoria mg/mL 6-09 Diprivan - l (Titrate.) 02:55: change Salma nn IV 1,000 mg 00 bottle & tubing every 12 hr Per state nursing law propofol can only be given by a nurse if patient is intubated or being intubated (unless the nurse is a UTILITY AGENT). Same as: Diprivan propofol No Notes: If M emoria mg/mL 6-09 Diprivan - l (Titrate.) 02:55: change Salma nn IV 1,000 mg 00 bottle & tubing every 12 hr Per state nursing law propofol can only be given by a nurse if patient is intubated or being intubated (unless the nurse is a UTILITY AGENT). Same as: Diprivan propofol No Notes: If M emoria mg/mL 6- Diprivan - l (Titrate.) 02:55: change Salma nn IV 1,000 mg 00 bottle & tubing every 12 hr Per state nursing law propofol can only be given by a nurse if patient is intubated or being intubated (unless the nurse is a UTILITY AGENT). Same as: Diprivan propofol No Notes: If M emoria mg/mL 6- Diprivan - l (Titrate.) 02:55: change Salma nn IV 1,000 mg 00 bottle & tubing every 12 hr Per state nursing law propofol can only be given by a nurse if patient is intubated or being intubated (unless the nurse is a UTILITY AGENT). Same as: Diprivan propofol No Notes: If M emoria mg/mL 6- Diprivan - l (Titrate.) 02:55: change Salma nn IV 1,000 mg 00 bottle & tubing every 12 hr Per state nursing law propofol can only be given by a nurse if patient is intubated or being intubated (unless the nurse is a UTILITY AGENT). Same as: Diprivan propofol No Notes: If M emoria mg/mL 6- Diprivan - l (Titrate.) 02:55: change Salma nn IV 1,000 mg 00 bottle & tubing every 12 hr Per state nursing law propofol can only be given by a nurse if patient is intubated or being intubated (unless the nurse is a UTILITY AGENT). Same as: Diprivan propofol No Notes: If M emoria mg/mL 6-09 Diprivan - l (Titrate.) 02:55: change Salma nn IV 1,000 mg 00 bottle & tubing every 12 hr Per state nursing law propofol can only be given by a nurse if patient is intubated or being intubated (unless the nurse is a UTILITY AGENT). Same as: Diprivan propofol No Notes: If M emoria mg/mL 6- Diprivan - l (Titrate.) 02:55: change Salma nn IV 1,000 mg 00 bottle & tubing every 12 hr Per state nursing law propofol can only be given by a nurse if patient is intubated or being intubated (unless the nurse is a UTILITY AGENT). Same as: Diprivan propofol No Notes: If M emoria mg/mL 6- Diprivan - l (Titrate.) 02:55: change Salma nn IV 1,000 mg 00 bottle & tubing every 12 hr Per state nursing law propofol can only be given by a nurse if patient is intubated or being intubated (unless the nurse is a UTILITY AGENT). Same as: Diprivan propofol No Notes: If M emoria mg/mL 6- Diprivan - l (Titrate.) 02:55: change Salma nn IV 1,000 mg 00 bottle & tubing every 12 hr Per state nursing law propofol can only be given by a nurse if patient is intubated or being intubated (unless the nurse is a UTILITY AGENT). Same as: Diprivan propofol No Notes: If M emoria mg/mL 6- Diprivan - l (Titrate.) 02:55: change Salma nn IV 1,000 mg 00 bottle & tubing every 12 hr Per state nursing law propofol can only be given by a nurse if patient is intubated or being intubated (unless the nurse is a UTILITY AGENT). Same as: Diprivan propofol No Notes: If M emoria mg/mL 6-09 Diprivan - l (Titrate.) 02:55: change Salma nn IV 1,000 mg 00 bottle & tubing every 12 hr Per state nursing law propofol can only be given by a nurse if patient is intubated or being intubated (unless the nurse is a UTILITY AGENT). Same as: Diprivan propofol No Notes: If M emoria mg/mL 6-09 Diprivan - l (Titrate.) 02:55: change Salma nn IV 1,000 mg 00 bottle & tubing every 12 hr Per state nursing law propofol can only be given by a nurse if patient is intubated or being intubated (unless the nurse is a UTILITY AGENT). Same as: Diprivan propofol No Notes: If M emoria mg/mL 6-09 Diprivan - l (Titrate.) 02:55: change Salma nn IV 1,000 mg 00 bottle & tubing every 12 hr Per state nursing law propofol can only be given by a nurse if patient is intubated or being intubated (unless the nurse is a UTILITY AGENT). Same as: Diprivan propofol No Notes: If M emoria mg/mL 6-09 Diprivan - l (Titrate.) 02:55: change Salma nn IV 1,000 mg 00 bottle & tubing every 12 hr Per state nursing law propofol can only be given by a nurse if patient is intubated or being intubated (unless the nurse is a UTILITY AGENT). Same as: Diprivan propofol No Notes: If M emoria mg/mL 6-09 Diprivan - l (Titrate.) 02:55: change Salma nn IV 1,000 mg 00 bottle & tubing every 12 hr Per state nursing law propofol can only be given by a nurse if patient is intubated or being intubated (unless the nurse is a UTILITY AGENT). Same as: Diprivan propofol No Notes: If M emoria mg/mL 6-09 Diprivan - l (Titrate.) 02:55: change Salma nn IV 1,000 mg 00 bottle & tubing every 12 hr Per state nursing law propofol can only be given by a nurse if patient is intubated or being intubated (unless the nurse is a UTILITY AGENT). Same as: Diprivan propofol No Notes: If M emoria mg/mL 6-09 Diprivan - l (Titrate.) 02:55: change Salma nn IV 1,000 mg 00 bottle & tubing every 12 hr Per state nursing law propofol can only be given by a nurse if patient is intubated or being intubated (unless the nurse is a UTILITY AGENT). Same as: Diprivan propofol No Notes: If M emoria mg/mL 6-09 Diprivan - l (Titrate.) 02:55: change Salma nn IV 1,000 mg 00 bottle & tubing every 12 hr Per state nursing law propofol can only be given by a nurse if patient is intubated or being intubated (unless the nurse is a UTILITY AGENT). Same as: Diprivan propofol No Notes: If M emoria mg/mL 6-09 Diprivan - l (Titrate.) 02:55: change Salma nn IV 1,000 mg 00 bottle & tubing every 12 hr Per state nursing law propofol can only be given by a nurse if patient is intubated or being intubated (unless the nurse is a UTILITY AGENT). Same as: Diprivan propofol No Notes: If M emoria mg/mL 6-09 Diprivan - l (Titrate.) 02:55: change Salma nn IV 1,000 mg 00 bottle & tubing every 12 hr Per state nursing law propofol can only be given by a nurse if patient is intubated or being intubated (unless the nurse is a UTILITY AGENT). Same as: Diprivan propofol No Notes: If M emoria mg/mL 6-09 Diprivan - l (Titrate.) 02:55: change Salma nn IV 1,000 mg 00 bottle & tubing every 12 hr Per state nursing law propofol can only be given by a nurse if patient is intubated or being intubated (unless the nurse is a UTILITY AGENT). Same as: Diprivan propofol No Notes: If M emoria mg/mL 6-09 Diprivan - l (Titrate.) 02:55: change Salma nn IV 1,000 mg 00 bottle & tubing every 12 hr Per state nursing law propofol can only be given by a nurse if patient is intubated or being intubated (unless the nurse is a UTILITY AGENT). Same as: Diprivan propofol No Notes: If M emoria mg/mL 6-09 Diprivan - l (Titrate.) 02:55: change Salma nn IV 1,000 mg 00 bottle & tubing every 12 hr Per state nursing law propofol can only be given by a nurse if patient is intubated or being intubated (unless the nurse is a UTILITY AGENT). Same as: Diprivan propofol No Notes: If M emoria mg/mL 6-09 Diprivan - l (Titrate.) 02:55: change Salma nn IV 1,000 mg 00 bottle & tubing every 12 hr Per state nursing law propofol can only be given by a nurse if patient is intubated or being intubated (unless the nurse is a UTILITY AGENT). Same as: Diprivan propofol 10 No Notes: If M emoria mg/mL 02-21 Diprivan - l (Titrate.) 02:55: change Salma nn IV 1,000 mg 00 bottle & tubing every 12 hr Per state nursing law propofol can only be given by a nurse if patient is intubated or being intubated (unless the nurse is a UTILITY AGENT). Same as: Diprivan potassium No Notes: Memori [...] phosphate 02-21 Infuse l 02:51: over 4 Vinnie 00 hour. Do not infuse phosphorou s concurrent ly in the same line as TPN or IVF that contains calcium. For double lumen central lines, phosphorou s may be infused in a separate lumen from TPN. potassium No Notes: Memori a phosphate-s 02-21 (Same as: l odium 02:51: Phos-NaK) Lead phosphate 00 Each 1.5 250 mg-280 gm pkt has mg-160 mg 250mg oral powder phosphorou for s. Mix reconstitut w/2.5oz ion water and stir. Calcium No Notes: Memoria Gluconate 02-21 WASTE: F/P l 02:51: - Sink; E Vinnie 00 - Municipal Trash Bin Magnesium No Notes: Memori a Oxide 02-21 (Same as: l 02:51: Mag-Ox Vinnie 00 400) Magnesium oxide [id number] g elemental magnesium Dose=____m g magnesium oxide (___mg elemental magnesium) Magnesium No Notes: Memori a Sulfate 02-21 WASTE: F/P l 02:51: - Sink; E Lead 00 - Municipal Trash Bin Calcium No Notes: Memoria Carbonate - (Same As: l 500 MG 02:51: Tums) Lead Chewable 00 Calcium Tablet Carbonate 500 mg = 200 mg elemental calcium Dose = mg calcium carbonate ( mg elemental calcium) propofol 10 No 1,000 mg, M emoria mg/mL 6- 100 mL, l (Titrate.) 02:51: Rate: Leland n IV 1,000 mg 00 Titrate, Start Dose: 5 microgram/ kg/min, Titration: 5 microgram/ kg/min every 15 minutes, Goal(s): rass -1, Max Dose: 50 mcg/kg/min , Route: IV, Dosing Weight 81.818 kg, Total Volume: 100, Start date: 02/20/19 21:51:00 CDT, Durat... Potassium No Notes: Memori a Chloride 6- Infuse at l 02:51: a rate of Vinnie 00 10 mEq/hr. (Same as: KCL) Saline No Notes: Memoria Flush 0.9% 02-21 (Same as: l 02:51: BD Lead Posiflush) Nystatin No Notes: Memoria 100 UNT/MG 02-21 (Same l Topical 02:51: as:Mycosta Herm avis Powder 00 tin, Nilstat) For external use only. potassium No Notes: Memori a phosphate - (Same as: l 02:51: K Lead 00 Phosphate. ) Do not infuse phosphorou s concurrent ly in the same line as TPN or IVF that contains calcium. For double lumen central lines, phosphorou s may be infused in a separate lumen from TPN. 1 mMol phoshate has 1.47 mEq potassium Infuse over 4 hours sodium No Notes: Memoria phosphate 6-09 Infuse l 02:51: over 4 Lead 00 hour. Do not infuse phosphorou s concurrent ly in the same line as TPN or IVF that contains calcium. For double lumen central lines, phosphorou s may be infused in a separate lumen from TPN. potassium No Notes: Memori a phosphate-s 6- (Same as: l odium 02:51: Phos-NaK) Vinnie phosphate 00 Each 1.5 250 mg-280 gm pkt has mg-160 mg 250mg oral powder phosphorou for s. Mix reconstitut w/2.5oz ion water and stir. Calcium No Notes: Memoria Gluconate 02-21 WASTE: F/P l 02:51: - Sink; E Lead - Municipal Trash Bin Magnesium No Notes: Memori a Oxide 02-21 (Same as: l 02:51: Mag-Ox Lead 00 400) Magnesium oxide [id number] g elemental magnesium Dose=____m g magnesium oxide (___mg elemental magnesium) Magnesium No Notes: Memori a Sulfate 02-21 WASTE: F/P l 02:51: - Sink; E Vinnie - Municipal Trash Bin Calcium No Notes: [...] Infuse at l 02:51: a rate of Lead 00 10 mEq/hr. (Same as: KCL) Saline No Notes: Memoria Flush 0.9% 02-21 (Same as: l 02:51: BD Vinnie 00 Posiflush) Nystatin No Notes: Memoria 100 UNT/MG 02-21 (Same l Topical 02:51: as:Mycosta Herm avis Powder 00 tin, Nilstat) For external use only. potassium No Notes: Memori a phosphate 02-21 (Same as: l 02:51: K Lead 00 Phosphate. ) Do not infuse phosphorou s concurrent ly in the same line as TPN or IVF that contains calcium. For double lumen central lines, phosphorou s may be infused in a separate lumen from TPN. 1 mMol phoshate has 1.47 mEq potassium Infuse over 4 hours sodium No Notes: Memoria phosphate 02-21 Infuse l 02:51: over 4 Vinnie 00 hour. Do not infuse phosphorou s concurrent ly in the same line as TPN or IVF that contains calcium. For double lumen central lines, phosphorou s may be infused in a separate lumen from TPN. potassium No Notes: Memori a phosphate-s 02-21 (Same as: l odium 02:51: Phos-NaK) Lead phosphate 00 Each 1.5 250 mg-280 gm pkt has mg-160 mg 250mg oral powder phosphorou for s. Mix reconstitut w/2.5oz ion water and stir. Calcium No Notes: Memoria Gluconate 02-21 WASTE: F/P l 02:51: - Sink; E Vinnie 00 - Municipal Trash Bin Magnesium No Notes: Memori a Oxide 02-21 (Same as: l 02:51: Mag-Ox Vinnie 00 400) Magnesium oxide [id number] g elemental magnesium Dose=____m g magnesium oxide (___mg elemental magnesium) Magnesium No Notes: Memori a Sulfate 02-21 WASTE: F/P l 02:51: - Sink; E Lead - Municipal Trash Bin Calcium No Notes: Memoria Carbonate 02-21 (Same As: l 500 MG 02:51: Tums) Lead Chewable 00 Calcium Tablet Carbonate 500 mg [...] Infuse at l 02:51: a rate of Vinnie 00 10 mEq/hr. (Same as: KCL) Saline No Notes: Memoria Flush 0.9% 02-21 (Same as: l 02:51: BD Lead 00 Posiflush) Nystatin No Notes: Memoria 100 UNT/MG 02-21 (Same l Topical 02:51: as:Mycosta Herm avis Powder 00 tin, Nilstat) For external use only. potassium No Notes: Memori a phosphate 02-21 [...] phosphate 02-21 Infuse l 02:51: over 4 Vinnie 00 hour. Do not infuse phosphorou s [...] E Vinnie 00 - [facility] Magnesium No Notes: Memori a Oxide 02-21 (Same as: l 02:51: Mag-Ox Vinnie 00 400) Magnesium oxide 407pi=149h g elemental magnesium Dose=____m g magnesium oxide (___mg elemental magnesium) Magnesium No Notes: Memori a Sulfate 02-21 WASTE: F/P l 02:51: - Sink; E Lead 00 - [facility] Calcium No Notes: Memoria Carbonate 02-21 (Same As: l 500 MG 02:51: Tums) Lead Chewable 00 Calcium Tablet Carbonate 500 mg [...] Infuse at l 02:51: a rate of Vinnie 00 10 mEq/hr. (Same as: KCL) Saline No Notes: Memoria Flush 0.9% 02-21 (Same as: l 02:51: BD Vinnie Posiflush) Nystatin No Notes: Memoria 100 UNT/MG 02-21 (Same l Topical 02:51: as:Mycosta Herm avis Powder 00 tin, Nilstat) For external use only. potassium No Notes: Memori a phosphate 02-21 (Same as: l 02:51: K Lead 00 Phosphate. ) Do not infuse phosphorou s concurrent ly in the same line as TPN or IVF that contains calcium. For double lumen central lines, phosphorou s may be infused in a separate lumen from TPN. 1 mMol phoshate has 1.47 mEq potassium Infuse over 4 hours sodium No Notes: Memoria phosphate - Infuse l 02:51: over 4 Lead 00 hour. Do not infuse phosphorou s concurrent ly in the same line as TPN or IVF that contains calcium. For double lumen central lines, phosphorou s may be infused in a separate lumen from TPN. potassium No Notes: Memori a phosphate-s 02-21 (Same as: l odium 02:51: Phos-NaK) Lead phosphate 00 Each 1.5 250 mg-280 gm pkt has mg-160 mg 250mg oral powder phosphorou for s. Mix reconstitut w/2.5oz ion water and stir. Calcium No Notes: Memoria Gluconate 02-21 WASTE: F/P l 02:51: - Sink; E Vinnie - [facility] Magnesium No Notes: Memori a Oxide 02-21 (Same as: l 02:51: Mag-Ox Lead 00 400) Magnesium oxide 072qg=497c g elemental magnesium Dose=____m g magnesium oxide (___mg elemental magnesium) Magnesium No Notes: Memori a Sulfate 02-21 WASTE: F/P l 02:51: - Sink; E Lead - [facility] Calcium No Notes: [...] Infuse at l 02:51: a rate of Lead 00 10 mEq/hr. (Same as: KCL) Saline No Notes: Memoria Flush 0.9% 02-21 (Same as: l 02:51: BD Lead 00 Posiflush) Nystatin No Notes: Memoria 100 UNT/MG 02-21 (Same l Topical 02:51: as:Mycosta Herm avis Powder 00 tin, Nilstat) For external use only. potassium No Notes: Memori a phosphate 6- (Same as: l 02:51: K Lead Phosphate. ) Do not infuse phosphorou s concurrent ly in the same line as TPN or IVF that contains calcium. For double lumen central lines, phosphorou s may be infused in a separate lumen from TPN. 1 mMol phoshate has 1.47 mEq potassium Infuse over 4 hours sodium No Notes: Memoria phosphate 6-09 Infuse l 02:51: over 4 Vinnie 00 hour. Do not infuse phosphorou s concurrent ly in the same line as TPN or IVF that contains calcium. For double lumen central lines, phosphorou s may be infused in a separate lumen from TPN. potassium No Notes: Memori a phosphate-s - (Same as: l odium 02:51: Phos-NaK) Lead phosphate 00 Each 1.5 250 mg-280 gm pkt has mg-160 mg 250mg oral powder phosphorou for s. Mix reconstitut w/2.5oz ion water and stir. Calcium No Notes: Memoria Gluconate 02-21 WASTE: F/P l 02:51: - Sink; E Vinnie - [facility] Magnesium No Notes: Memori a Oxide 02-21 (Same as: l 02:51: Mag-Ox Vinnie 00 400) Magnesium oxide 459wm=439v g elemental magnesium Dose=____m g magnesium oxide (___mg elemental magnesium) Magnesium No Notes: Memori a Sulfate 02-21 WASTE: F/P l 02:51: - Sink; E Vinnie - [facility] potassium No Notes: Memori a phosphate 6- (Same as: l 02:51: K Lead Phosphate. ) Do not infuse phosphorou s concurrent ly in the same line as TPN or IVF that contains calcium. For double lumen central lines, phosphorou s may be infused in a separate lumen from TPN. 1 mMol phoshate has 1.47 mEq potassium Infuse over 4 hours sodium No Notes: Memoria phosphate 6-09 Infuse l 02:51: over 4 Lead 00 hour. Do not infuse phosphorou s [...] WASTE: F/P l 02:51: - Sink; E Lead - [facility] Magnesium No Notes: Memori a Oxide 02-21 (Same as: l 02:51: Mag-Ox Lead 00 400) Magnesium oxide 404eh=993m g elemental magnesium Dose=____m g magnesium oxide (___mg elemental magnesium) Magnesium No Notes: Memori a Sulfate 02-21 WASTE: F/P l 02:51: - Sink; E Vinnie - [facility] Calcium No Notes: [...] Infuse at l 02:51: a rate of Vinnie 00 10 mEq/hr. (Same as: KCL) Saline No Notes: Memoria Flush 0.9% 02-21 (Same as: l 02:51: BD Lead 00 Posiflush) Nystatin No Notes: Memoria 100 UNT/MG 02-21 (Same l Topical 02:51: as:Mycosta Herm avis Powder 00 tin, Nilstat) For external use only. Calcium No Notes: Memoria Carbonate 02-21 (Same As: l 500 MG 02:51: Tums) Lead Chewable 00 Calcium Tablet Carbonate 500 mg [...] Durat... Potassium No Notes: Memori a Chloride - Infuse at l 02:51: a rate of Vinnie 00 10 mEq/hr. (Same as: KCL) Saline No Notes: Memoria Flush 0.9% 02-21 (Same as: l 02:51: BD Vinnie 00 Posiflush) potassium No Notes: Memori a phosphate 02-21 (Same as: l 02:51: K [place] 00 Phosphate. ) Do not infuse phosphorou s concurrent ly in the same line as TPN or IVF that contains calcium. For double lumen central lines, phosphorou s may be infused in a separate lumen from TPN. 1 mMol phoshate has 1.47 mEq potassium Infuse over 4 hours Nystatin No Notes: Memoria 100 UNT/MG 02-21 (Same l Topical 02:51: as:Mycosta Herm avis Powder 00 tin, Nilstat) For external use only. sodium No Notes: Memoria phosphate - Infuse l 02:51: over 4 Vinnie 00 hour. Do not infuse phosphorou s concurrent ly in the same line as TPN or IVF that contains calcium. For double lumen central lines, phosphorou s may be infused in a separate lumen from TPN. potassium No Notes: Memori a phosphate-s 02-21 (Same as: l odium 02:51: Phos-NaK) Lead phosphate 00 Each 1.5 250 mg-280 gm pkt has mg-160 mg 250mg oral powder phosphorou for s. Mix reconstitut w/2.5oz ion water and stir. Calcium No Notes: Mem[facility] Gluconate 02-21 WASTE: F/P l 02:51: - Sink; E Vinnie - [facility] Magnesium No Notes: Memori a Oxide 02-21 (Same as: l 02:51: Mag-Ox Vinnie 00 400) Magnesium oxide 714vl=701t g elemental magnesium Dose=____m g magnesium oxide (___mg elemental magnesium) Magnesium No Notes: Memori a Sulfate 02-21 WASTE: F/P l 02:51: - Sink; E - [facility] Calcium No Notes: [facility] Carbonate 02-21 (Same As: l 500 MG 02:51: Tums) Lead Chewable 00 Calcium Tablet Carbonate 500 mg [...] Infuse at l 02:51: a rate of Vinnie 00 10 mEq/hr. (Same as: KCL) Saline No Notes: Memoria Flush 0.9% 02-21 (Same as: l 02:51: BD Lead 00 Posiflush) Nystatin No Notes: Memoria 100 UNT/MG 02-21 (Same l Topical 02:51: as:Mycosta Herm avis Powder 00 tin, Nilstat) For external use only. potassium No Notes: Memori a phosphate 02-21 (Same as: l 02:51: K Lead 00 Phosphate. ) Do not infuse phosphorou s concurrent ly in the same line as TPN or IVF that contains calcium. For double lumen central lines, phosphorou s may be infused in a separate lumen from TPN. 1 mMol phoshate has 1.47 mEq potassium Infuse over 4 hours sodium No Notes: Memoria phosphate 02-21 Infuse l 02:51: over 4 Vinnie 00 hour. Do not infuse phosphorou s concurrent ly in the same line as TPN or IVF that contains calcium. For double lumen central lines, phosphorou s may be infused in a separate lumen from TPN. potassium No Notes: Memori a phosphate-s 02-21 (Same as: l odium 02:51: Phos-NaK) Lead phosphate 00 Each 1.5 250 mg-280 gm pkt has mg-160 mg 250mg oral powder phosphorou for s. Mix reconstitut w/2.5oz ion water and stir. Calcium No Notes: Memoria Gluconate 02-21 WASTE: F/P l 02:51: - Sink; E Lead - [facility] Magnesium No Notes: Memori a Oxide 02-21 (Same as: l 02:51: Mag-Ox Vinnie 00 400) Magnesium oxide 940zb=951z g elemental magnesium Dose=____m g magnesium oxide (___mg elemental magnesium) Magnesium No Notes: Memori a Sulfate 02-21 WASTE: F/P l 02:51: - Sink; E Lead - [facility] Calcium No Notes: [facility] Carbonate 02-21 (Same As: l 500 MG 02:51: Tums) Lead Chewable 00 Calcium Tablet Carbonate 500 mg [...] Infuse at l 02:51: a rate of Lead 00 10 mEq/hr. (Same as: KCL) Saline No Notes: Memoria Flush 0.9% 02-21 (Same as: l 02:51: BD Vinnie 00 Posiflush) Nystatin No Notes: Memoria 100 UNT/MG 02-21 (Same l Topical 02:51: as:Mycosta Herm avis Powder 00 tin, Nilstat) For external use only. potassium No Notes: Memori a phosphate 02-21 (Same as: l 02:51: K Lead 00 Phosphate. ) Do not infuse phosphorou s concurrent ly in the same line as TPN or IVF that contains calcium. For double lumen central lines, phosphorou s may be infused in a separate lumen from TPN. 1 mMol phoshate has 1.47 mEq potassium Infuse over 4 hours sodium No Notes: Memoria phosphate 02-21 Infuse l 02:51: over 4 Lead 00 hour. Do not infuse phosphorou s [...] E Vinnie 00 - [facility] Magnesium No Notes: Memori a Oxide 02-21 (Same as: l 02:51: Mag-Ox Vinnie 00 400) Magnesium oxide 879xg=590a g elemental magnesium Dose=____m g magnesium oxide (___mg elemental magnesium) Magnesium No Notes: Memori a Sulfate 02-21 WASTE: F/P l 02:51: - Sink; E Lead 00 - [facility] Calcium No Notes: [facility]oria Carbonate 02-21 (Same As: l 500 MG 02:51: Tums) Lead Chewable 00 Calcium Tablet Carbonate 500 mg [...] Infuse at l 02:51: a rate of Vinnie 00 10 mEq/hr. (Same as: KCL) Saline No Notes: Memoria Flush 0.9% 02-21 (Same as: l 02:51: BD Lead Posiflush) Nystatin No Notes: Memoria 100 UNT/MG 02-21 (Same l Topical 02:51: as:Mycosta Herm avis Powder 00 tin, Nilstat) For external use only. potassium No Notes: Memori a phosphate 02-21 (Same as: l 02:51: K Lead 00 Phosphate. ) Do not infuse phosphorou s concurrent ly in the same line as TPN or IVF that contains calcium. For double lumen central lines, phosphorou s may be infused in a separate lumen from TPN. 1 mMol phoshate has 1.47 mEq potassium Infuse over 4 hours sodium No Notes: Memoria phosphate - Infuse l 02:51: over 4 Lead 00 hour. Do not infuse phosphorou s [...] WASTE: F/P l 02:51: - Sink; E Lead - [facility] Magnesium No Notes: Memori a Oxide 02-21 (Same as: l 02:51: Mag-Ox Lead 00 400) Magnesium oxide 971pl=771y g elemental magnesium Dose=____m g magnesium oxide (___mg elemental magnesium) Magnesium No Notes: Memori a Sulfate 02-21 WASTE: F/P l 02:51: - Sink; E Lead - [facility] Calcium No Notes: [...] Infuse at l 02:51: a rate of Vinnie 00 10 mEq/hr. (Same as: KCL) Saline No Notes: Memoria Flush 0.9% 02-21 (Same as: l 02:51: BD Lead 00 Posiflush) Nystatin No Notes: Memoria 100 UNT/MG 02-21 (Same l Topical 02:51: as:Mycosta Herm avis Powder 00 tin, Nilstat) For external use only. potassium No Notes: Memori a phosphate 02-21 [...] phosphate 02-21 Infuse l 02:51: over 4 Vinnie 00 hour. Do not infuse phosphorou s concurrent ly in the same line as TPN or IVF that contains calcium. For double lumen central lines, phosphorou s may be infused in a separate lumen from TPN. potassium No Notes: Memori a phosphate-s 02-21 (Same as: l odium 02:51: Phos-NaK) Lead phosphate 00 Each 1.5 250 mg-280 gm pkt has mg-160 mg 250mg oral powder phosphorou for s. Mix reconstitut w/2.5oz ion water and stir. Calcium No Notes: Memoria Gluconate 02-21 WASTE: F/P l 02:51: - Sink; E Lead - [facility] Magnesium No Notes: Memori a Oxide 02-21 (Same as: l 02:51: Mag-Ox Vinnie 00 400) Magnesium oxide 053nd=461s g elemental magnesium Dose=____m g magnesium oxide (___mg elemental magnesium) Magnesium No Notes: Memori a Sulfate 02-21 WASTE: F/P l 02:51: - Sink; E Lead - [facility] Calcium No Notes: Memoria Carbonate 02-21 (Same As: l 500 MG 02:51: Tums) Lead Chewable 00 Calcium Tablet Carbonate 500 mg [...] Durat... Potassium No Notes: Memori a Chloride - Infuse at l 02:51: a rate of Vinnie 00 10 mEq/hr. (Same as: KCL) Saline No Notes: Memoria Flush 0.9% 02-21 (Same as: l 02:51: BD Lead 00 Posiflush) Nystatin No Notes: Memoria 100 UNT/MG 02-21 (Same l Topical 02:51: as:Mycosta Herm avis Powder 00 tin, Nilstat) For external use only. potassium No Notes: Memori a phosphate - (Same as: l 02:51: K Lead 00 Phosphate. ) Do not infuse phosphorou s concurrent ly in the same line as TPN or IVF that contains calcium. For double lumen central lines, phosphorou s may be infused in a separate lumen from TPN. 1 mMol phoshate has 1.47 mEq potassium Infuse over 4 hours sodium No Notes: Memoria phosphate - Infuse l 02:51: over 4 Lead 00 hour. Do not infuse phosphorou s concurrent ly in the same line as TPN or IVF that contains calcium. For double lumen central lines, phosphorou s may be infused in a separate lumen from TPN. potassium No Notes: Memori a phosphate-s - (Same as: l odium 02:51: Phos-NaK) Vinnie phosphate 00 Each 1.5 250 mg-280 gm pkt has mg-160 mg 250mg oral powder phosphorou for s. Mix reconstitut w/2.5oz ion water and stir. Calcium No Notes: Memoria Gluconate 02-21 WASTE: F/P l 02:51: - Sink; E Vinnie 00 - [facility] Magnesium No Notes: Memori a Oxide 02-21 (Same as: l 02:51: Mag-Ox Vinnie 00 400) Magnesium oxide 330im=832d g elemental magnesium Dose=____m g magnesium oxide (___mg elemental magnesium) Magnesium No Notes: Memori a Sulfate 02-21 WASTE: F/P l 02:51: - Sink; E Lead 00 - [facility] Calcium No Notes: Memoria Carbonate 02-21 (Same As: l 500 MG 02:51: Tums) Lead Chewable 00 Calcium Tablet Carbonate 500 mg [...] Infuse at l 02:51: a rate of Lead 00 10 mEq/hr. (Same as: KCL) Saline No Notes: Memoria Flush 0.9% 02-21 (Same as: l 02:51: BD Lead Posiflush) Nystatin No Notes: Memoria 100 UNT/MG 02-21 (Same l Topical 02:51: as:Mycosta Herm avis Powder 00 tin, Nilstat) For external use only. potassium No Notes: Memori a phosphate 02-21 [...] 4 hours sodium No Notes: Memoria phosphate - Infuse l 02:51: over 4 Vinnie 00 hour. Do not infuse phosphorou s concurrent ly in the same line as TPN or IVF that contains calcium. For double lumen central lines, phosphorou s may be infused in a separate lumen from TPN. potassium No Notes: Memori a phosphate-s 02-21 (Same as: l odium 02:51: Phos-NaK) Lead phosphate 00 Each 1.5 250 mg-280 gm pkt has mg-160 mg 250mg oral powder phosphorou for s. Mix reconstitut w/2.5oz ion water and stir. Calcium No Notes: Memoria Gluconate 02-21 WASTE: F/P l 02:51: - Sink; E Vinnie - [facility] Magnesium No Notes: Memori a Oxide 02-21 (Same as: l 02:51: Mag-Ox Lead 00 400) Magnesium oxide 275rt=053n g elemental magnesium Dose=____m g magnesium oxide (___mg elemental magnesium) Magnesium No Notes: Memori a Sulfate 02-21 WASTE: F/P l 02:51: - Sink; E Lead 00 - [facility] Calcium No [...] Infuse at l 02:51: a rate of Vinnie 00 10 mEq/hr. (Same as: KCL) Saline No Notes: Memoria Flush 0.9% 02-21 (Same as: l 02:51: BD Lead 00 Posiflush) Nystatin No Notes: Memoria 100 UNT/MG 02-21 (Same l Topical 02:51: as:Mycosta Herm avis Powder 00 tin, Nilstat) For external use only. potassium No Notes: Memori a phosphate 02-21 (Same as: l 02:51: K Lead 00 Phosphate. ) Do not infuse phosphorou s concurrent ly in the same line as TPN or IVF that contains calcium. For double lumen central lines, phosphorou s may be infused in a separate lumen from TPN. 1 mMol phoshate has 1.47 mEq potassium Infuse over 4 hours sodium No Notes: Memoria phosphate 02-21 Infuse l 02:51: over 4 Lead 00 hour. Do not infuse phosphorou s concurrent ly in the same line as TPN or IVF that contains calcium. For double lumen central lines, phosphorou s may be infused in a separate lumen from TPN. potassium No Notes: Memori a phosphate-s 02-21 (Same as: l odium 02:51: Phos-NaK) Lead phosphate 00 Each 1.5 250 mg-280 gm pkt has mg-160 mg 250mg oral powder phosphorou for s. Mix reconstitut w/2.5oz ion water and stir. Calcium No Notes: Memoria Gluconate 02-21 WASTE: F/P l 02:51: - Sink; E Vinnie 00 - [facility] Magnesium No Notes: Memori a Oxide 02-21 (Same as: l 02:51: Mag-Ox Lead 00 400) Magnesium oxide 591ho=785o g elemental magnesium Dose=____m g magnesium oxide [...] 10 No 1,000 mg, M emoria mg/mL - 100 mL, l (Titrate.) 02:51: Rate: Leland n IV 1,000 mg 00 Titrate, Start Dose: 5 microgram/ kg/min, Titration: 5 microgram/ kg/min every 15 minutes, Goal(s): rass -1, Max Dose: 50 mcg/kg/min , Route: IV, Dosing Weight 81.818 kg, Total Volume: 100, Start date: 02/20/19 21:51:00 CDT, Durat... Potassium No Notes: Memori a Chloride 02-21 Infuse at l 02:51: a rate of Vinnie 00 10 mEq/hr. (Same as: KCL) Saline No Notes: Memoria Flush 0.9% 02-21 (Same as: l 02:51: BD Vinnie Posiflush) Nystatin No Notes: Memoria 100 UNT/MG 02-21 (Same l Topical 02:51: as:Mycosta Herm avis Powder 00 tin, Nilstat) For external use only. potassium No Notes: Memori a phosphate 02-21 (Same as: l 02:51: K Lead Phosphate. ) Do not infuse phosphorou s concurrent ly in the same line as TPN or IVF that contains calcium. For double lumen central lines, phosphorou s may be infused in a separate lumen from TPN. 1 mMol phoshate has 1.47 mEq potassium Infuse over 4 hours sodium No Notes: Memoria phosphate 02-21 Infuse l 02:51: over 4 Vinnie 00 hour. Do not infuse phosphorou s [...] WASTE: F/P l 02:51: - Sink; E Lead 00 - [facility] Magnesium No Notes: Memori a Oxide 02-21 (Same as: l 02:51: Mag-Ox Lead 00 400) Magnesium oxide 776ne=156n g elemental magnesium Dose=____m g magnesium oxide (___mg elemental magnesium) Magnesium No Notes: Memori a Sulfate 02-21 WASTE: F/P l 02:51: - Sink; E Vinnie 00 - [facility] Calcium No Notes: Memoria Carbonate 02-21 (Same As: l 500 MG 02:51: Tums) Lead Chewable 00 Calcium Tablet Carbonate 500 mg [...] Infuse at l 02:51: a rate of Lead 00 10 mEq/hr. (Same as: KCL) Saline No Notes: Memoria Flush 0.9% 02-21 (Same as: l 02:51: BD Vinnie Posiflush) Nystatin No Notes: Memoria 100 UNT/MG 02-21 (Same l Topical 02:51: as:Mycosta Herm avis Powder 00 tin, Nilstat) For external use only. potassium No Notes: Memori a phosphate 02-21 (Same as: l 02:51: K Lead 00 Phosphate. ) Do not infuse phosphorou s concurrent ly in the same line as TPN or IVF that contains calcium. For double lumen central lines, phosphorou s may be infused in a separate lumen from TPN. 1 mMol phoshate has 1.47 mEq potassium Infuse over 4 hours sodium No Notes: Memoria phosphate 6-09 Infuse l 02:51: over 4 Lead 00 hour. Do not infuse phosphorou s [...] WASTE: F/P l 02:51: - Sink; E Lead 00 - [facility] Magnesium No Notes: Memori a Oxide 02-21 (Same as: l 02:51: Mag-Ox Lead 00 400) Magnesium oxide 955yr=602o g elemental magnesium Dose=____m g magnesium oxide (___mg elemental magnesium) Magnesium No Notes: Memori a Sulfate 02-21 WASTE: F/P l 02:51: - Sink; E Vinnie - [facility] Calcium No Notes: [...] Infuse at l 02:51: a rate of Lead 00 10 mEq/hr. (Same as: KCL) Saline No Notes: Memoria Flush 0.9% 02-21 (Same as: l 02:51: BD Vinnie 00 Posiflush) Nystatin No Notes: Memoria 100 UNT/MG 02-21 (Same l Topical 02:51: as:Mycosta Herm avis Powder 00 tin, Nilstat) For external use only. potassium No Notes: Memori a phosphate 02-21 [...] phosphate 02-21 Infuse l 02:51: over 4 Vinnie 00 hour. Do not infuse phosphorou s concurrent ly in the same line as TPN or IVF that contains calcium. For double lumen central lines, phosphorou s may be infused in a separate lumen from TPN. potassium No Notes: Memori a phosphate-s 02-21 (Same as: l odium 02:51: Phos-NaK) Lead phosphate 00 Each 1.5 250 mg-280 gm pkt has mg-160 mg 250mg oral powder phosphorou for s. Mix reconstitut w/2.5oz ion water and stir. Calcium No Notes: Memoria Gluconate 02-21 WASTE: F/P l 02:51: - Sink; E - [facility] Magnesium No Notes: Memori a Oxide 02-21 (Same as: l 02:51: Mag-Ox Lead 00 400) Magnesium oxide 482is=895n g elemental magnesium Dose=____m g magnesium oxide (___mg elemental magnesium) Magnesium No Notes: Memori a Sulfate 02-21 WASTE: F/P l 02:51: - Sink; E Lead 00 - [facility] Calcium No Notes: Memoria Carbonate 02-21 (Same As: l 500 MG 02:51: Tums) Vinnie Chewable 00 Calcium Tablet Carbonate 500 mg = 200 mg elemental calcium Dose = mg calcium carbonate ( mg elemental calcium) propofol 10 No 1,000 mg, M emoria mg/mL - 100 mL, l (Titrate.) 02:51: Rate: Leland n IV 1,000 mg 00 Titrate, Start Dose: 5 microgram/ kg/min, Titration: 5 microgram/ kg/min every 15 minutes, Goal(s): rass -1, Max Dose: 50 mcg/kg/min , Route: IV, Dosing Weight 81.818 kg, Total Volume: 100, Start date: 02/20/19 21:51:00 CDT, Durat... Potassium No Notes: Memori a Chloride 02-21 Infuse at l 02:51: a rate of Lead 00 10 mEq/hr. (Same as: KCL) Saline No Notes: Memoria Flush 0.9% 02-21 (Same as: l 02:51: BD Lead 00 Posiflush) Nystatin No Notes: Memoria 100 UNT/MG 02-21 (Same l Topical 02:51: as:Mycosta Herm avis Powder 00 tin, Nilstat) For external use only. potassium No Notes: Memori a phosphate 02-21 [...] phosphate 02-21 Infuse l 02:51: over 4 Lead 00 hour. Do not infuse phosphorou s [...] and stir. Calcium No Notes: Memoria Gluconate 6-09 WASTE: F/P l 02:51: - Sink; E Lead 00 - [facility] Magnesium No Notes: Memori a Oxide 02-21 (Same as: l 02:51: Mag-Ox Vinnie 00 400) Magnesium oxide 545cw=266i g elemental magnesium Dose=____m g magnesium oxide (___mg elemental magnesium) Magnesium No Notes: Memori a Sulfate 02-21 WASTE: F/P l 02:51: - Sink; E Vinnie - [facility] Calcium No Notes: Memoria Carbonate 02-21 (Same As: l 500 MG 02:51: Tums) Lead Chewable 00 Calcium Tablet Carbonate 500 mg [...] Infuse at l 02:51: a rate of Vinnie 00 10 mEq/hr. (Same as: KCL) Saline No Notes: Memoria Flush 0.9% 02-21 (Same as: l 02:51: BD Vinnie Posiflush) Nystatin No Notes: Memoria 100 UNT/MG 02-21 (Same l Topical 02:51: as:Mycosta Herm avis Powder 00 tin, Nilstat) For external use only. potassium No Notes: Memori a phosphate 02-21 [...] phosphate 02-21 Infuse l 02:51: over 4 Vinnie 00 hour. Do not infuse phosphorou s concurrent ly in the same line as TPN or IVF that contains calcium. For double lumen central lines, phosphorou s may be infused in a separate lumen from TPN. potassium No Notes: Memori a phosphate-s 02-21 (Same as: l odium 02:51: Phos-NaK) Lead phosphate 00 Each 1.5 250 mg-280 gm pkt has mg-160 mg 250mg oral powder phosphorou for s. Mix reconstitut w/2.5oz ion water and stir. Calcium No Notes: Memoria Gluconate 02-21 WASTE: F/P l 02:51: - Sink; E Lead 00 - [facility] Magnesium No Notes: Memori a Oxide 02-21 (Same as: l 02:51: Mag-Ox Lead 00 400) Magnesium oxide 763le=343p g elemental magnesium Dose=____m g magnesium oxide (___mg elemental magnesium) Magnesium No Notes: Memori a Sulfate 02-21 WASTE: F/P l 02:51: - Sink; E - [facility] Calcium No Notes: Memoria Carbonate 02-21 (Same As: l 500 MG 02:51: Tums) Lead Chewable 00 Calcium Tablet Carbonate 500 mg [...] Infuse at l 02:51: a rate of Lead 00 10 mEq/hr. (Same as: KCL) Saline No Notes: Memoria Flush 0.9% 02-21 (Same as: l 02:51: BD Lead Posiflush) Nystatin No Notes: Memoria 100 UNT/MG 02-21 (Same l Topical 02:51: as:Mycosta Herm avis Powder 00 tin, Nilstat) For external use only. potassium No Notes: Memori a phosphate 02-21 (Same as: l 02:51: K Lead Phosphate. ) Do not infuse phosphorou s concurrent ly in the same line as TPN or IVF that contains calcium. For double lumen central lines, phosphorou s may be infused in a separate lumen from TPN. 1 mMol phoshate has 1.47 mEq potassium Infuse over 4 hours sodium No Notes: Memoria phosphate 02-21 Infuse l 02:51: over 4 Vinnie 00 hour. Do not infuse phosphorou s [...] WASTE: F/P l 02:51: - Sink; E - [facility] Magnesium No Notes: Memori a Oxide 02-21 (Same as: l 02:51: Mag-Ox Lead 00 400) Magnesium oxide 242hi=675l g elemental magnesium Dose=____m g magnesium oxide (___mg elemental magnesium) Magnesium No Notes: Memori a Sulfate 02-21 WASTE: F/P l 02:51: - Sink; E Lead 00 - [facility] Calcium No Notes: Memoria Carbonate 02-21 (Same As: l 500 MG 02:51: Tums) Vinnie Chewable 00 Calcium Tablet Carbonate 500 mg = 200 mg elemental calcium Dose = mg calcium carbonate ( mg elemental calcium) propofol 10 No 1,000 mg, M emoria mg/mL 6- 100 mL, l (Titrate.) 02:51: Rate: Leland n IV 1,000 mg 00 Titrate, Start Dose: 5 microgram/ kg/min, Titration: 5 microgram/ kg/min every 15 minutes, Goal(s): rass -1, Max Dose: 50 mcg/kg/min , Route: IV, Dosing Weight 81.818 kg, Total Volume: 100, Start date: 02/20/19 21:51:00 CDT, Durat... Potassium No Notes: Memori a Chloride - Infuse at l 02:51: a rate of Lead 00 10 mEq/hr. (Same as: KCL) Saline No Notes: Memoria Flush 0.9% 02-21 (Same as: l 02:51: BD Vinnie 00 Posiflush) Nystatin No Notes: Memoria 100 UNT/MG 02-21 (Same l Topical 02:51: as:Mycosta Herm avis Powder 00 tin, Nilstat) For external use only. potassium No Notes: Memori a phosphate 02-21 [...] 4 hours sodium No Notes: Memoria phosphate - Infuse l 02:51: over 4 Vinnie 00 hour. Do not infuse phosphorou s concurrent ly in the same line as TPN or IVF that contains calcium. For double lumen central lines, phosphorou s may be infused in a separate lumen from TPN. potassium No Notes: Memori a phosphate-s - (Same as: l odium 02:51: Phos-NaK) Vinnie phosphate 00 Each 1.5 250 mg-280 gm pkt has mg-160 mg 250mg oral powder phosphorou for s. Mix reconstitut w/2.5oz ion water and stir. Calcium No Notes: Memoria Gluconate 02-21 WASTE: F/P l 02:51: - Sink; E Lead 00 - Municipal Trash Bin Magnesium No Notes: Memori a Oxide 02-21 (Same as: l 02:51: Mag-Ox Lead 00 400) Magnesium oxide [id number]=[id number] g elemental magnesium Dose=____m g magnesium oxide (___mg elemental magnesium) Magnesium No Notes: Memori a Sulfate 02-21 WASTE: F/P l 02:51: - Sink; E Vinnie - Municipal Trash Bin Calcium No Notes: [...] Infuse at l 02:51: a rate of Lead 00 10 mEq/hr. (Same as: KCL) Saline No Notes: Memoria Flush 0.9% 02-21 (Same as: l 02:51: BD Vinnie 00 Posiflush) Nystatin No Notes: Memoria 100 UNT/MG 02-21 (Same l Topical 02:51: as:Mycosta Herm avis Powder 00 tin, Nilstat) For external use only. potassium No Notes: Memori a phosphate 02-21 [...] phosphate 02-21 Infuse l 02:51: over 4 Vinnie 00 hour. Do not infuse phosphorou s concurrent ly in the same line as TPN or IVF that contains calcium. For double lumen central lines, phosphorou s may be infused in a separate lumen from TPN. potassium No Notes: Memori a phosphate-s 02-21 (Same as: l odium 02:51: Phos-NaK) Lead phosphate 00 Each 1.5 250 mg-280 gm pkt has mg-160 mg 250mg oral powder phosphorou for s. Mix reconstitut w/2.5oz ion water and stir. Calcium No Notes: Memoria Gluconate 02-21 WASTE: F/P l 02:51: - Sink; E Vinnie 00 - Municipal Trash Bin Magnesium No Notes: Memori a Oxide 02-21 (Same as: l 02:51: Mag-Ox Lead 00 400) Magnesium oxide 787nk=660j g elemental magnesium Dose=____m g magnesium oxide (___mg elemental magnesium) Magnesium No Notes: Memori a Sulfate 02-21 WASTE: F/P l 02:51: - Sink; E Lead - [employer] Trash Bin Calcium No Notes: Memoria Carbonate 02-21 (Same As: l 500 MG 02:51: Tums) Lead Chewable 00 Calcium Tablet Carbonate 500 mg [...] Durat... Potassium No Notes: Memori a Chloride - Infuse at l 02:51: a rate of Lead 00 10 mEq/hr. (Same as: KCL) Saline No Notes: Memoria Flush 0.9% 02-21 (Same as: l 02:51: BD Lead 00 Posiflush) Nystatin No Notes: Memoria 100 UNT/MG 02-21 (Same l Topical 02:51: as:Mycosta Herm avis Powder 00 tin, Nilstat) For external use only. potassium No Notes: Memori a phosphate 02-21 [...] 4 hours sodium No Notes: Memoria phosphate - Infuse l 02:51: over 4 Vinnie 00 hour. Do not infuse phosphorou s concurrent ly in the same line as TPN or IVF that contains calcium. For double lumen central lines, phosphorou s may be infused in a separate lumen from TPN. potassium No Notes: Memori a phosphate-s 02-21 (Same as: l odium 02:51: Phos-NaK) Lead phosphate 00 Each 1.5 250 mg-280 gm pkt has mg-160 mg 250mg oral powder phosphorou for s. Mix reconstitut w/2.5oz ion water and stir. Calcium No Notes: Memoria Gluconate 02-21 WASTE: F/P l 02:51: - Sink; E Vinnie - [facility] Trash Bin Magnesium No Notes: Memori a Oxide 02-21 (Same as: l 02:51: Mag-Ox Lead 00 400) Magnesium oxide 903hi=900g g elemental magnesium Dose=____m g magnesium oxide (___mg elemental magnesium) Magnesium No Notes: Memori a Sulfate 02-21 WASTE: F/P l 02:51: - Sink; E Lead 00 - Municipal Trash Bin Calcium No Notes: Memoria Carbonate 02-21 (Same As: l 500 MG 02:51: Tums) Lead Chewable 00 Calcium Tablet Carbonate 500 mg = 200 mg elemental calcium Dose = mg calcium carbonate ( mg elemental calcium) propofol 10 No 1,000 mg, M emoria mg/mL 6-09 100 mL, l (Titrate.) 02:51: Rate: Leland n IV 1,000 mg 00 Titrate, Start Dose: 5 microgram/ kg/min, Titration: 5 microgram/ kg/min every 15 minutes, Goal(s): rass -1, Max Dose: 50 mcg/kg/min , Route: IV, Dosing Weight 81.818 kg, Total Volume: 100, Start date: 02/20/19 21:51:00 CDT, Durat... Potassium No Notes: Memori a Chloride - Infuse at l 02:51: a rate of Vinnie 00 10 mEq/hr. (Same as: KCL) Saline No Notes: Memoria Flush 0.9% 02-21 (Same as: l 02:51: BD Vinnie 00 Posiflush) Nystatin No Notes: Memoria 100 UNT/MG 02-21 (Same l Topical 02:51: as:Mycosta Herm avis Powder 00 tin, Nilstat) For external use only. potassium No Notes: Memori a phosphate - (Same as: l 02:51: K Vinnie 00 Phosphate. ) Do not infuse phosphorou s concurrent ly in the same line as TPN or IVF that contains calcium. For double lumen central lines, phosphorou s may be infused in a separate lumen from TPN. 1 mMol phoshate has 1.47 mEq potassium Infuse over 4 hours sodium No Notes: Memoria phosphate - Infuse l 02:51: over 4 Lead 00 hour. Do not infuse phosphorou s concurrent ly in the same line as TPN or IVF that contains calcium. For double lumen central lines, phosphorou s may be infused in a separate lumen from TPN. potassium No Notes: Memori a phosphate-s - (Same as: l odium 02:51: Phos-NaK) Vinnie phosphate 00 Each 1.5 250 mg-280 gm pkt has mg-160 mg 250mg oral powder phosphorou for s. Mix reconstitut w/2.5oz ion water and stir. Calcium No Notes: Memoria Gluconate 02-21 WASTE: F/P l 02:51: - Sink; E Vinnie - [facility] Trash Bin Magnesium No Notes: Memori a Oxide 02-21 (Same as: l 02:51: Mag-Ox Vinnie 00 400) Magnesium oxide [id number] g elemental magnesium Dose=____m g magnesium oxide (___mg elemental magnesium) Magnesium No Notes: Memori a Sulfate 02-21 WASTE: F/P l 02:51: - Sink; E Vinnie - [facility] Trash Bin Calcium No Notes: [...] Infuse at l 02:51: a rate of Lead 00 10 mEq/hr. (Same as: KCL) Saline No Notes: Memoria Flush 0.9% 02-21 (Same as: l 02:51: BD Lead 00 Posiflush) Nystatin No Notes: Memoria 100 UNT/MG 02-21 (Same l Topical 02:51: as:Mycosta Herm avis Powder 00 tin, Nilstat) For external use only. potassium No Notes: Memori a phosphate 02-21 [...] phosphate 02-21 Infuse l 02:51: over 4 Lead 00 hour. Do not infuse phosphorou s concurrent ly in the same line as TPN or IVF that contains calcium. For double lumen central lines, phosphorou s may be infused in a separate lumen from TPN. potassium No Notes: Memori a phosphate-s 02-21 (Same as: l odium 02:51: Phos-NaK) Lead phosphate 00 Each 1.5 250 mg-280 gm pkt has mg-160 mg 250mg oral powder phosphorou for s. Mix reconstitut w/2.5oz ion water and stir. Calcium No Notes: Memoria Gluconate 02-21 WASTE: F/P l 02:51: - Sink; E Vinnie 00 - [facility] Trash Bin Magnesium No Notes: Memori a Oxide 02-21 (Same as: l 02:51: Mag-Ox Vinnie 00 400) Magnesium oxide 435ss=308u g elemental magnesium Dose=____m g magnesium oxide (___mg elemental magnesium) Magnesium No Notes: Memori a Sulfate 02-21 WASTE: F/P l 02:51: - Sink; E Vinnie - Municipal Trash Bin Calcium No Notes: [...] Durat... Potassium No Notes: Memori a Chloride - Infuse at l 02:51: a rate of Vinnie 00 10 mEq/hr. (Same as: KCL) Saline No Notes: Memoria Flush 0.9% 02-21 (Same as: l 02:51: BD Lead 00 Posiflush) Nystatin No Notes: Memoria 100 UNT/MG 02-21 (Same l Topical 02:51: as:Mycosta Herm avis Powder 00 tin, Nilstat) For external use only. potassium No Notes: Memori a phosphate 02-21 (Same as: l 02:51: K Lead 00 Phosphate. ) Do not infuse phosphorou s concurrent ly in the same line as TPN or IVF that contains calcium. For double lumen central lines, phosphorou s may be infused in a separate lumen from TPN. 1 mMol phoshate has 1.47 mEq potassium Infuse over 4 hours sodium No Notes: Memoria phosphate - Infuse l 02:51: over 4 Lead 00 hour. Do not infuse phosphorou s concurrent ly in the same line as TPN or IVF that contains calcium. For double lumen central lines, phosphorou s may be infused in a separate lumen from TPN. potassium No Notes: Memori a phosphate-s 02-21 (Same as: l odium 02:51: Phos-NaK) Lead phosphate 00 Each 1.5 250 mg-280 gm pkt has mg-160 mg 250mg oral powder phosphorou for s. Mix reconstitut w/2.5oz ion water and stir. Calcium No Notes: Memoria Gluconate 02-21 WASTE: F/P l 02:51: - Sink; E Vinnie 00 - [facility] Trash Bin Magnesium No Notes: Memori a Oxide 02-21 (Same as: l 02:51: Mag-Ox Lead 00 400) Magnesium oxide 114hf=644c g elemental magnesium Dose=____m g magnesium oxide [...] Infuse at l 02:51: a rate of Lead 00 10 mEq/hr. (Same as: KCL) Saline No Notes: Memoria Flush 0.9% 02-21 (Same as: l 02:51: BD Lead 00 Posiflush) Nystatin No Notes: Memoria 100 UNT/MG 02-21 (Same l Topical 02:51: as:Mycosta Herm avis Powder 00 tin, Nilstat) For external use only. chlorhexidi No Notes: Semaj shashi ne 02-21 (Same As: l gluconate 02:00: Peridex) Herm avis 1.2 MG/ML 00 Mouthwash Vancomycin No 2000 mg: Me moria 02-21 infuse l 02:00: over 2.5 Lead 00 hours For adult patients only: Round to nearest 250 mg per Medical Staff approval MEDICATION WASTE Product Size: 1000 mg Product Wasted: ___ mg chlorhexidi No Notes: Semaj shashi ne 02-21 (Same As: l gluconate 02:00: Peridex) Herm avis 1.2 MG/ML 00 Mouthwash Vancomycin No 2000 mg: Me moria 02-21 infuse l 02:00: over 2.5 Lead 00 hours For adult patients only: Round to nearest 250 mg per Medical Staff approval MEDICATION WASTE Product Size: 1000 mg Product Wasted: ___ mg chlorhexidi 2018-0 No Notes: Semaj shashi ne 02-21 (Same As: l gluconate 02:00: Peridex) Herm avis 1.2 MG/ML 00 Mouthwash Vancomycin 2018-0 No 2001 mg: Me moria 02-21 infuse l 02:00: over 2.5 Vninie 00 hours For adult patients only: Round to nearest 250 mg per Medical Staff approval MEDICATION WASTE Product Size: 1000 mg Product Wasted: ___ mg chlorhexidi 2018-0 No Notes: Semaj shashi ne 02-21 (Same As: l gluconate 02:00: Peridex) Herm avis 1.2 MG/ML 00 Mouthwash Vancomycin No 2001 mg: Me moria 02-21 infuse l 02:00: over 2.5 Lead 00 hours For adult patients only: Round to nearest 250 mg per Medical Staff approval MEDICATION WASTE Product Size: 1000 mg Product Wasted: ___ mg chlorhexidi 0 No Notes: Semaj shashi ne 02-21 (Same As: l gluconate 02:00: Peridex) Herm avis 1.2 MG/ML Mouthwash Vancomycin No 2001 mg: Me moria 02-21 infuse l 02:00: over 2.5 Lead 00 hours For adult patients only: Round to nearest 250 mg per Medical Staff approval MEDICATION WASTE Product Size: 1000 mg Product Wasted: ___ mg chlorhexidi 2018-0 No Notes: Semaj shashi ne 02-21 (Same As: l gluconate 02:00: Peridex) Herm avis 1.2 MG/ML 00 Mouthwash Vancomycin 2019-0 No 2001 mg: Me moria 02-21 infuse l 02:00: over 2.5 Vinnie 00 hours For adult patients only: Round to nearest 250 mg per Medical Staff approval MEDICATION WASTE Product Size: 1000 mg Product Wasted: ___ mg chlorhexidi 2018-0 No Notes: Semaj shashi ne 02-21 (Same As: l gluconate 02:00: Peridex) Herm avis 1.2 MG/ML 00 Mouthwash chlorhexidi 2018-0 No Notes: Semaj shashi ne 02-21 (Same As: l gluconate 02:00: Peridex) Herm avis 1.2 MG/ML 00 Mouthwash Vancomycin 2019-0 No 2001 mg: Me moria 02-21 infuse l 02:00: over 2.5 Lead 00 hours For adult patients only: Round to nearest 250 mg per Medical Staff approval MEDICATION WASTE Product Size: 1000 mg Product Wasted: ___ mg chlorhexidi 2019-0 No Notes: Semaj shashi ne 02-21 (Same As: l gluconate 02:00: Peridex) Herm avis 1.2 MG/ML 00 Mouthwash Vancomycin 0 No 2001 mg: Me moria 02-21 infuse l 02:00: over 2.5 Vinnie 00 hours For adult patients only: Round to nearest 250 mg per Medical Staff approval MEDICATION WASTE Product Size: 1000 mg Product Wasted: ___ mg Vancomycin 2018-0 No 2001 mg: Me moria 02-21 infuse l 02:00: over 2.5 Lead 00 hours For adult patients only: Round to nearest 250 mg per Medical Staff approval MEDICATION WASTE Product Size: 1000 mg Product Wasted: ___ mg chlorhexidi 2019-0 No Notes: Semaj shashi ne 02-21 (Same As: l gluconate 02:00: Peridex) Herm avis 1.2 MG/ML Mouthwash Vancomycin 0 No 2001 mg: Me moria 02-21 infuse l 02:00: over 2.5 Lead 00 hours For adult patients only: Round to nearest 250 mg per Medical Staff approval MEDICATION WASTE Product Size: 1000 mg Product Wasted: ___ mg chlorhexidi 2019-0 No Notes: Semaj shashi ne 02-21 (Same As: l gluconate 02:00: Peridex) Herm avis 1.2 MG/ML 00 Mouthwash Vancomycin 2019-0 No 2001 mg: Me moria 02-21 infuse l 02:00: over 2.5 Vinnie 00 hours For adult patients only: Round to nearest 250 mg per Medical Staff approval MEDICATION WASTE Product Size: 1000 mg Product Wasted: ___ mg chlorhexidi 2019-0 No Notes: Semaj shashi ne 02-21 (Same As: l gluconate 02:00: Peridex) Herm avis 1.2 MG/ML 00 Mouthwash Vancomycin 2019-0 No 2001 mg: Me moria 02-21 infuse l 02:00: over 2.5 Lead 00 hours For adult patients only: Round to nearest 250 mg per Medical Staff approval MEDICATION WASTE Product Size: 1000 mg Product Wasted: ___ mg chlorhexidi 2018-0 No Notes: Semaj shashi nh 02-21 (Same As: l gluconate 02:00: Peridex) Herm avis 1.2 MG/ML 00 Mouthwash Vancomycin 0 No 2001 mg: Me moria 02-21 infuse l 02:00: over 2.5 Lead 00 hours For adult patients only: Round to nearest 250 mg per Medical Staff approval MEDICATION WASTE Product Size: 1000 mg Product Wasted: ___ mg chlorhexidi 2019-0 No Notes: Semaj shashi nh 02-21 (Same As: l gluconate 02:00: Peridex) Herm avis 1.2 MG/ML Mouthwash Vancomycin 2018- No 2001 mg: Me moria 02-21 infuse l 02:00: over 2.5 Lead 00 hours For adult patients only: Round to nearest 250 mg per Medical Staff approval MEDICATION WASTE Product Size: 1000 mg Product Wasted: ___ mg chlorhexidi 2019-0 No Notes: Semaj shashi nh 02-21 (Same As: l gluconate 02:00: Peridex) Herm avis 1.2 MG/ML Mouthwash Vancomycin 2018-0 No 2001 mg: Me moria 02-21 infuse l 02:00: over 2.5 Lead 00 hours For adult patients only: Round to nearest 250 mg per Medical Staff approval MEDICATION WASTE Product Size: 1000 mg Product Wasted: ___ mg chlorhexidi 2019-0 No Notes: Semaj shashi nh 02-21 (Same As: l gluconate 02:00: Peridex) Herm avis 1.2 MG/ML 00 Mouthwash Vancomycin 2018-0 No 2001 mg: Me moria 02-21 infuse l 02:00: over 2.5 Lead 00 hours For adult patients only: Round to nearest 250 mg per Medical Staff approval MEDICATION WASTE Product Size: 1000 mg Product Wasted: ___ mg chlorhexidi 2019-0 No Notes: Semaj shashi ne 02-21 (Same As: l gluconate 02:00: Peridex) Herm avis 1.2 MG/ML 00 Mouthwash Vancomycin 2019-0 No 2001 mg: Me moria 02-21 infuse l 02:00: over 2.5 Vinnie 00 hours For adult patients only: Round to nearest 250 mg per Medical Staff approval MEDICATION WASTE Product Size: 1000 mg Product Wasted: ___ mg chlorhexidi 2019-0 No Notes: Semaj shashi ne 02-21 (Same As: l gluconate 02:00: Peridex) Herm avis 1.2 MG/ML 00 Mouthwash Vancomycin 2018-0 No 2001 mg: Me moria 02-21 infuse l 02:00: over 2.5 Lead 00 hours For adult patients only: Round to nearest 250 mg per Medical Staff approval MEDICATION WASTE Product Size: 1000 mg Product Wasted: ___ mg chlorhexidi 2019-0 No Notes: Semaj shashi nh 02-21 (Same As: l gluconate 02:00: Peridex) Herm avis 1.2 MG/ML 00 Mouthwash Vancomycin 2018-0 No 2001 mg: Me moria 02-21 infuse l 02:00: over 2.5 Lead 00 hours For adult patients only: Round to nearest 250 mg per Medical Staff approval MEDICATION WASTE Product Size: 1000 mg Product Wasted: ___ mg chlorhexidi 2018-0 No Notes: Semaj shashi ne 02-21 (Same As: l gluconate 02:00: Peridex) Herm avis 1.2 MG/ML 00 Mouthwash Vancomycin 2019-0 No 2001 mg: Me moria 02-21 infuse l 02:00: over 2.5 Vinnie 00 hours For adult patients only: Round to nearest 250 mg per Medical Staff approval MEDICATION WASTE Product Size: 1000 mg Product Wasted: ___ mg chlorhexidi 2019-0 No Notes: Semaj shashi ne 02-21 (Same As: l gluconate 02:00: Peridex) Herm avis 1.2 MG/ML 00 Mouthwash Vancomycin 2019-0 No 2001 mg: Me moria 6 infuse l 02:00: over 2.5 Lead 00 hours For adult patients only: Round to nearest 250 mg per Medical Staff approval MEDICATION WASTE Product Size: 1000 mg Product Wasted: ___ mg chlorhexidi 2018-0 No Notes: Semaj shashi ne 02-21 (Same As: l gluconate 02:00: Peridex) Herm avis 1.2 MG/ML 00 Mouthwash Vancomycin 2018-0 No 2001 mg: Me moria 02-21 infuse l 02:00: over 2.5 Vinnie 00 hours For adult patients only: Round to nearest 250 mg per Medical Staff approval MEDICATION WASTE Product Size: 1000 mg Product Wasted: ___ mg chlorhexidi 2018-0 No Notes: Semaj shashi ne 02-21 (Same As: l gluconate 02:00: Peridex) Herm avis 1.2 MG/ML Mouthwash Vancomycin 2018- No 2001 mg: Me moria 02-21 infuse l 02:00: over 2.5 Lead 00 hours For adult patients only: Round to nearest 250 mg per Medical Staff approval MEDICATION WASTE Product Size: 1000 mg Product Wasted: ___ mg chlorhexidi 2018-0 No Notes: Semaj shashi ne 02-21 (Same As: l gluconate 02:00: Peridex) Herm avis 1.2 MG/ML Mouthwash Vancomycin No 2001 mg: Me moria 02-21 infuse l 02:00: over 2.5 Lead 00 hours For adult patients only: Round to nearest 250 mg per Medical Staff approval MEDICATION WASTE Product Size: 1000 mg Product Wasted: ___ mg chlorhexidi 2018-0 No Notes: Semaj shashi ne 02-21 (Same As: l gluconate 02:00: Peridex) Herm avis 1.2 MG/ML 00 Mouthwash Vancomycin 2019-0 No 2001 mg: Me moria 02-21 infuse l 02:00: over 2.5 Lead 00 hours For adult patients only: Round to nearest 250 mg per Medical Staff approval MEDICATION WASTE Product Size: 1000 mg Product Wasted: ___ mg chlorhexidi 2018-0 No Notes: Semaj shashi ne 02-21 (Same As: l gluconate 02:00: Peridex) Herm avis 1.2 MG/ML 00 Mouthwash Vancomycin 2018-0 No 2001 mg: Me moria 02-21 infuse l 02:00: over 2.5 Lead 00 hours For adult patients only: Round to nearest 250 mg per Medical Staff approval MEDICATION WASTE Product Size: 1000 mg Product Wasted: ___ mg chlorhexidi 2018- No Notes: Semaj shashi ne 02-21 (Same As: l gluconate 02:00: Peridex) Herm avis 1.2 MG/ML 00 Mouthwash Vancomycin No 2000 mg: Me moria 02-21 infuse l 02:00: over 2.5 Lead 00 hours For adult patients only: Round to nearest 250 mg per Medical Staff approval MEDICATION WASTE Product Size: 1000 mg Product Wasted: ___ mg Norepinephr No Notes: Not Memoria ine 02-21 for direct l 01:44: administra Lead 00 tion - DILUTE. Protect from light. (Same as:Levophe d). Administer by either central venous catheter or peripheral ly-inserte d central catheter (PICC) line. Norepinephr No Notes: Not Memoria ine 02-21 for direct l 01:44: administra Vinnie 00 tion - DILUTE. Protect from light. (Same as:Levophe d). Administer by either central venous catheter or peripheral ly-inserte d central catheter (PICC) line. Norepinephr No Notes: Not Memoria ine 02-21 for direct l 01:44: administra Lead 00 tion - DILUTE. Protect from light. (Same as:Levophe d). Administer by either central venous catheter or peripheral ly-inserte d central catheter (PICC) line. Norepinephr No Notes: Not Memoria ine 02-21 for direct l 01:44: administra Lead 00 tion - DILUTE. Protect from light. (Same as:Levophe d). Administer by either central venous catheter or peripheral ly-inserte d central catheter (PICC) line. Norepinephr No Notes: Not Memoria ine 02-21 for direct l 01:44: administra Vinnie 00 tion - DILUTE. Protect from light. (Same as:Levophe d). Administer by either central venous catheter or peripheral ly-inserte d central catheter (PICC) line. Norepinephr No Notes: Not Memoria ine 6-09 for direct l 01:44: administra Vinnie 00 tion - DILUTE. Protect from light. (Same as:Levophe d). Administer by either central venous catheter or peripheral ly-inserte d central catheter (PICC) line. Norepinephr No Notes: Not Memoria ine 6-09 for direct l 01:44: administra Lead 00 tion - DILUTE. Protect from light. (Same as:Levophe d). Administer by either central venous catheter or peripheral ly-inserte d central catheter (PICC) line. Norepinephr No Notes: Not Memoria ine 6-09 for direct l 01:44: administra Vinnie 00 tion - DILUTE. Protect from light. (Same as:Levophe d). Administer by either central venous catheter or peripheral ly-inserte d central catheter (PICC) line. Norepinephr No Notes: Not Memoria ine 6-09 for direct l 01:44: administra Vinnie 00 tion - DILUTE. Protect from light. (Same as:Levophe d). Administer by either central venous catheter or peripheral ly-inserte d central catheter (PICC) line. Norepinephr No Notes: Not Memoria ine 6-09 for direct l 01:44: administra Lead 00 tion - DILUTE. Protect from light. (Same as:Levophe d). Administer by either central venous catheter or peripheral ly-inserte d central catheter (PICC) line. Norepinephr No Notes: Not Memoria ine 6-09 for direct l 01:44: administra Vinnie 00 tion - DILUTE. Protect from light. (Same as:Levophe d). Administer by either central venous catheter or peripheral ly-inserte d central catheter (PICC) line. Norepinephr No Notes: Not Memoria ine 6-09 for direct l 01:44: administra Vinnie 00 tion - DILUTE. Protect from light. (Same as:Levophe d). Administer by either central venous catheter or peripheral ly-inserte d central catheter (PICC) line. Norepinephr No Notes: Not Memoria ine 6-09 for direct l 01:44: administra Lead 00 tion - DILUTE. Protect from light. (Same as:Levophe d). Administer by either central venous catheter or peripheral ly-inserte d central catheter (PICC) line. Norepinephr 0 No Notes: Not Memoria ine 6-09 for direct l 01:44: administra Lead 00 tion - DILUTE. Protect from light. (Same as:Levophe d). Administer by either central venous catheter or peripheral ly-inserte d central catheter (PICC) line. Norepinephr No Notes: Not Memoria ine 6-09 for direct l 01:44: administra Vinnie 00 tion - DILUTE. Protect from light. (Same as:Levophe d). Administer by either central venous catheter or peripheral ly-inserte d central catheter (PICC) line. Norepinephr No Notes: Not Memoria ine 6-09 for direct l 01:44: administra Vinnie 00 tion - DILUTE. Protect from light. (Same as:Levophe d). Administer by either central venous catheter or peripheral ly-inserte d central catheter (PICC) line. Norepinephr No Notes: Not Memoria ine 6-09 for direct l 01:44: administra Lead 00 tion - DILUTE. Protect from light. (Same as:Levophe d). Administer by either central venous catheter or peripheral ly-inserte d central catheter (PICC) line. Norepinephr No Notes: Not Memoria ine 6-09 for direct l 01:44: administra Lead 00 tion - DILUTE. Protect from light. (Same as:Levophe d). Administer by either central venous catheter or peripheral ly-inserte d central catheter (PICC) line. Norepinephr No Notes: Not Memoria ine 6-09 for direct l 01:44: administra Vinnie 00 tion - DILUTE. Protect from light. (Same as:Levophe d). Administer by either central venous catheter or peripheral ly-inserte d central catheter (PICC) line. Norepinephr 0 No Notes: Not Memoria ine 6-09 for direct l 01:44: administra Lead 00 tion - DILUTE. Protect from light. (Same as:Levophe d). Administer by either central venous catheter or peripheral ly-inserte d central catheter (PICC) line. Norepinephr No Notes: Not Memoria ine 6-09 for direct l 01:44: administra Vinnie 00 tion - DILUTE. Protect from light. (Same as:Levophe d). Administer by either central venous catheter or peripheral ly-inserte d central catheter (PICC) line. Norepinephr No Notes: Not Memoria ine 6-09 for direct l 01:44: administra Lead 00 tion - DILUTE. Protect from light. (Same as:Levophe d). Administer by either central venous catheter or peripheral ly-inserte d central catheter (PICC) line. Norepinephr No Notes: Not Memoria ine 6-09 for direct l 01:44: administra Vinnie 00 tion - DILUTE. Protect from light. (Same as:Levophe d). Administer by either central venous catheter or peripheral ly-inserte d central catheter (PICC) line. Norepinephr No Notes: Not Memoria ine 6-09 for direct l 01:44: administra Vinnie 00 tion - DILUTE. Protect from light. (Same as:Levophe d). Administer by either central venous catheter or peripheral ly-inserte d central catheter (PICC) line. Norepinephr No Notes: Not Memoria ine 6-09 for direct l 01:44: administra Lead 00 tion - DILUTE. Protect from light. (Same as:Levophe d). Administer by either central venous catheter or peripheral ly-inserte d central catheter (PICC) line. Norepinephr No Notes: Not Memoria ine 6-09 for direct l 01:44: administra Vinnie 00 tion - DILUTE. Protect from light. (Same as:Levophe d). Administer by either central venous catheter or peripheral ly-inserte d central catheter (PICC) line. Norepinephr 0 No Notes: Not Memoria ine 6-09 for direct l 01:44: administra Vinnie 00 tion - DILUTE. Protect from light. (Same as:Levophe d). Administer by either central venous catheter or peripheral ly-inserte d central catheter (PICC) line. Lasix No Notes: Memoria 02-21 (Same as: l 01:15: Lasix) Lead 00 MEDICATION WASTE Product Size: 40 mg Product Wasted: ___ mg Lasix 2019-0 No Notes: Memoria 02-21 (Same as: l 01:15: Lasix) Vinnie 00 MEDICATION WASTE Product Size: 40 mg Product Wasted: ___ mg Lasix 2019-0 No Notes: Memoria 02-21 (Same as: l 01:15: Lasix) Vinnie 00 MEDICATION WASTE Product Size: 40 mg Product Wasted: ___ mg Lasix 2019-0 No Notes: Memoria 02-21 (Same as: l 01:15: Lasix) Vinnie 00 MEDICATION WASTE Product Size: 40 mg Product Wasted: ___ mg Lasix 2019-0 No Notes: Memoria 02-21 (Same as: l 01:15: Lasix) Lead 00 MEDICATION WASTE Product Size: 40 mg Product Wasted: ___ mg Lasix 2018-0 No Notes: Memoria 02-21 (Same as: l 01:15: Lasix) Lead 00 MEDICATION WASTE Product Size: 40 mg Product Wasted: ___ mg Lasix 2018-0 No Notes: Memoria 02-21 (Same as: l 01:15: Lasix) Lead 00 MEDICATION WASTE Product Size: 40 mg Product Wasted: ___ mg Lasix 2018-0 No Notes: Memoria 02-21 (Same as: l 01:15: Lasix) Lead 00 MEDICATION WASTE Product Size: 40 mg Product Wasted: ___ mg Lasix 2019-0 No Notes: Memoria 02-21 (Same as: l 01:15: Lasix) Vinnie 00 MEDICATION WASTE Product Size: 40 mg Product Wasted: ___ mg Lasix 2019-0 No Notes: Memoria 02-21 (Same as: l 01:15: Lasix) Vinnie 00 MEDICATION WASTE Product Size: 40 mg Product Wasted: ___ mg Lasix 2019-0 No Notes: Memoria 02-21 (Same as: l 01:15: Lasix) Lead 00 MEDICATION WASTE Product Size: 40 mg Product Wasted: ___ mg Lasix 2019-0 No Notes: Memoria 02-21 (Same as: l :15: Lasix) Vinnie 00 MEDICATION WASTE Product Size: 40 mg Product Wasted: ___ mg Lasix 2019-0 No Notes: Memoria 02-21 (Same as: l :15: Lasix) Vinnie 00 MEDICATION WASTE Product Size: 40 mg Product Wasted: ___ mg Lasix 2019-0 No Notes: Memoria 02-21 (Same as: l :15: Lasix) Lead 00 MEDICATION WASTE Product Size: 40 mg Product Wasted: ___ mg Lasix 2019-0 No Notes: Memoria 02-21 (Same as: l :15: Lasix) Vinnie 00 MEDICATION WASTE Product Size: 40 mg Product Wasted: ___ mg Lasix 2018-0 No Notes: Memoria 02-21 (Same as: l :15: Lasix) Lead 00 MEDICATION WASTE Product Size: 40 mg Product Wasted: ___ mg Lasix 2018-0 No Notes: Memoria 02-21 (Same as: l :15: Lasix) Lead 00 MEDICATION WASTE Product Size: 40 mg Product Wasted: ___ mg Lasix 2019-0 No Notes: Memoria 02-21 (Same as: l :15: Lasix) Lead 00 MEDICATION WASTE Product Size: 40 mg Product Wasted: ___ mg Lasix 2019-0 No Notes: Memoria 02-21 (Same as: l 01:15: Lasix) Vinnie 00 MEDICATION WASTE Product Size: 40 mg Product Wasted: ___ mg Lasix 2019-0 No Notes: Memoria 02-21 (Same as: l :15: Lasix) Vinnie 00 MEDICATION WASTE Product Size: 40 mg Product Wasted: ___ mg Lasix 2019-0 No Notes: Memoria 02-21 (Same as: l :15: Lasix) Lead 00 MEDICATION WASTE Product Size: 40 mg Product Wasted: ___ mg Lasix 2018-0 No Notes: Memoria 02-21 (Same as: l 01:15: Lasix) Vinnie 00 MEDICATION WASTE Product Size: 40 mg Product Wasted: ___ mg Lasix 2018-0 No Notes: Memoria 02-21 (Same as: l 01:15: Lasix) Vinnie 00 MEDICATION WASTE Product Size: 40 mg Product Wasted: ___ mg Lasix 2018-0 No Notes: Memoria 02-21 (Same as: l 01:15: Lasix) Lead 00 MEDICATION WASTE Product Size: 40 mg Product Wasted: ___ mg Lasix 2018-0 No Notes: Memoria 02-21 (Same as: l 01:15: Lasix) Vinnie 00 MEDICATION WASTE Product Size: 40 mg Product Wasted: ___ mg Lasix 2018-0 No Notes: Memoria 02-21 (Same as: l 01:15: Lasix) Lead 00 MEDICATION WASTE Product Size: 40 mg Product Wasted: ___ mg Lasix 2018-0 No Notes: Memoria 02-21 (Same as: l 01:15: Lasix) Vinnie 00 MEDICATION WASTE Product Size: 40 mg Product Wasted: ___ mg propofol No Notes: If M emoria mg/mL 02-21 Diprivan - l (Titrate.) 00:33: change Salma nn IV 500 mg 00 bottle & tubing every 12 hr Per state nursing law propofol can only be given by a nurse if patient is intubated or being intubated (unless the nurse is a UTILITY AGENT). Same as: Diprivan propofol No Notes: If M emoria mg/mL 02-21 Diprivan - l (Titrate.) 00:33: change Salma nn IV 500 mg 00 bottle & tubing every 12 hr Per state nursing law propofol can only be given by a nurse if patient is intubated or being intubated (unless the nurse is a UTILITY AGENT). Same as: Diprivan propofol No Notes: If M emoria mg/mL 6-09 Diprivan - l (Titrate.) 00:33: change Salma nn IV 500 mg 00 bottle & tubing every 12 hr Per state nursing law propofol can only be given by a nurse if patient is intubated or being intubated (unless the nurse is a UTILITY AGENT). Same as: Diprivan propofol No Notes: If M emoria mg/mL 6-09 Diprivan - l (Titrate.) 00:33: change Salma nn IV 500 mg 00 bottle & tubing every 12 hr Per state nursing law propofol can only be given by a nurse if patient is intubated or being intubated (unless the nurse is a UTILITY AGENT). Same as: Diprivan propofol No Notes: If M emoria mg/mL 6-09 Diprivan - l (Titrate.) 00:33: change Salma nn IV 500 mg 00 bottle & tubing every 12 hr Per state nursing law propofol can only be given by a nurse if patient is intubated or being intubated (unless the nurse is a UTILITY AGENT). Same as: Diprivan propofol No Notes: If M emoria mg/mL 6- Diprivan - l (Titrate.) 00:33: change Salma nn IV 500 mg 00 bottle & tubing every 12 hr Per state nursing law propofol can only be given by a nurse if patient is intubated or being intubated (unless the nurse is a UTILITY AGENT). Same as: Diprivan propofol No Notes: If M emoria mg/mL 6-09 Diprivan - l (Titrate.) 00:33: change Salma nn IV 500 mg 00 bottle & tubing every 12 hr Per state nursing law propofol can only be given by a nurse if patient is intubated or being intubated (unless the nurse is a UTILITY AGENT). Same as: Diprivan propofol No Notes: If M emoria mg/mL 6-09 Diprivan - l (Titrate.) 00:33: change Salma nn IV 500 mg 00 bottle & tubing every 12 hr Per state nursing law propofol can only be given by a nurse if patient is intubated or being intubated (unless the nurse is a UTILITY AGENT). Same as: Diprivan propofol No Notes: If M emoria mg/mL 6- Diprivan - l (Titrate.) 00:33: change Salma nn IV 500 mg 00 bottle & tubing every 12 hr Per state nursing law propofol can only be given by a nurse if patient is intubated or being intubated (unless the nurse is a UTILITY AGENT). Same as: Diprivan propofol No Notes: If M emoria mg/mL 6- Diprivan - l (Titrate.) 00:33: change Salma nn IV 500 mg 00 bottle & tubing every 12 hr Per state nursing law propofol can only be given by a nurse if patient is intubated or being intubated (unless the nurse is a UTILITY AGENT). Same as: Diprivan propofol No Notes: If M emoria mg/mL 6- Diprivan - l (Titrate.) 00:33: change Salma nn IV 500 mg 00 bottle & tubing every 12 hr Per state nursing law propofol can only be given by a nurse if patient is intubated or being intubated (unless the nurse is a UTILITY AGENT). Same as: Diprivan propofol No Notes: If M emoria mg/mL 6- Diprivan - l (Titrate.) 00:33: change Salma nn IV 500 mg 00 bottle & tubing every 12 hr Per state nursing law propofol can only be given by a nurse if patient is intubated or being intubated (unless the nurse is a UTILITY AGENT). Same as: Diprivan propofol No Notes: If M emoria mg/mL 6- Diprivan - l (Titrate.) 00:33: change Salma nn IV 500 mg 00 bottle & tubing every 12 hr Per state nursing law propofol can only be given by a nurse if patient is intubated or being intubated (unless the nurse is a UTILITY AGENT). Same as: Diprivan propofol No Notes: If M emoria mg/mL 6-09 Diprivan - l (Titrate.) 00:33: change Salma nn IV 500 mg 00 bottle & tubing every 12 hr Per state nursing law propofol can only be given by a nurse if patient is intubated or being intubated (unless the nurse is a UTILITY AGENT). Same as: Diprivan propofol No Notes: If M emoria mg/mL 6- Diprivan - l (Titrate.) 00:33: change Salma nn IV 500 mg 00 bottle & tubing every 12 hr Per state nursing law propofol can only be given by a nurse if patient is intubated or being intubated (unless the nurse is a UTILITY AGENT). Same as: Diprivan propofol No Notes: If M emoria mg/mL 6- Diprivan - l (Titrate.) 00:33: change Salma nn IV 500 mg 00 bottle & tubing every 12 hr Per state nursing law propofol can only be given by a nurse if patient is intubated or being intubated (unless the nurse is a UTILITY AGENT). Same as: Diprivan propofol No Notes: If M emoria mg/mL 6- Diprivan - l (Titrate.) 00:33: change Salma nn IV 500 mg 00 bottle & tubing every 12 hr Per state nursing law propofol can only be given by a nurse if patient is intubated or being intubated (unless the nurse is a UTILITY AGENT). Same as: Diprivan propofol No Notes: If M emoria mg/mL 6- Diprivan - l (Titrate.) 00:33: change Salma nn IV 500 mg 00 bottle & tubing every 12 hr Per state nursing law propofol can only be given by a nurse if patient is intubated or being intubated (unless the nurse is a UTILITY AGENT). Same as: Diprivan propofol No Notes: If M emoria mg/mL 6- Diprivan - l (Titrate.) 00:33: change Salma nn IV 500 mg 00 bottle & tubing every 12 hr Per state nursing law propofol can only be given by a nurse if patient is intubated or being intubated (unless the nurse is a UTILITY AGENT). Same as: Diprivan propofol No Notes: If M emoria mg/mL 6-09 Diprivan - l (Titrate.) 00:33: change Salma nn IV 500 mg 00 bottle & tubing every 12 hr Per state nursing law propofol can only be given by a nurse if patient is intubated or being intubated (unless the nurse is a UTILITY AGENT). Same as: Diprivan propofol No Notes: If M emoria mg/mL 6- Diprivan - l (Titrate.) 00:33: change Salma nn IV 500 mg 00 bottle & tubing every 12 hr Per state nursing law propofol can only be given by a nurse if patient is intubated or being intubated (unless the nurse is a UTILITY AGENT). Same as: Diprivan propofol No Notes: If M emoria mg/mL 6- Diprivan - l (Titrate.) 00:33: change Salma nn IV 500 mg 00 bottle & tubing every 12 hr Per state nursing law propofol can only be given by a nurse if patient is intubated or being intubated (unless the nurse is a UTILITY AGENT). Same as: Diprivan propofol No Notes: If M emoria mg/mL 6- Diprivan - l (Titrate.) 00:33: change Salma nn IV 500 mg 00 bottle & tubing every 12 hr Per state nursing law propofol can only be given by a nurse if patient is intubated or being intubated (unless the nurse is a UTILITY AGENT). Same as: Diprivan propofol No Notes: If M emoria mg/mL 6- Diprivan - l (Titrate.) 00:33: change Salma nn IV 500 mg 00 bottle & tubing every 12 hr Per state nursing law propofol can only be given by a nurse if patient is intubated or being intubated (unless the nurse is a UTILITY AGENT). Same as: Diprivan propofol No Notes: If M emoria mg/mL 6- Diprivan - l (Titrate.) 00:33: change Salma nn IV 500 mg 00 bottle & tubing every 12 hr Per state nursing law propofol can only be given by a nurse if patient is intubated or being intubated (unless the nurse is a UTILITY AGENT). Same as: Diprivan propofol No Notes: If M emoria mg/mL 6-09 Diprivan - l (Titrate.) 00:33: change Salma nn IV 500 mg 00 bottle & tubing every 12 hr Per state nursing law propofol can only be given by a nurse if patient is intubated or being intubated (unless the nurse is a UTILITY AGENT). Same as: Diprivan propofol 10 No Notes: If M emoria mg/mL 02-21 Diprivan - l (Titrate.) 00:33: change Salma nn IV 500 mg 00 bottle & tubing every 12 hr Per state nursing law propofol can only be given by a nurse if patient is intubated or being intubated (unless the nurse is a UTILITY AGENT). Same as: Diprivan Etomidate No Notes: Memori a 02-21 (Same as: l 00:32: Amidate). Lead Per state nursing law etomidate can only be given by a nurse if patient is intubated or being intubated (unless the nurse is a UTILITY AGENT). Etomidate No Notes: Memori a 02-21 (Same as: l 00:32: Amidate). Vinnie Per state nursing law etomidate can only be given by a nurse if patient is intubated or being intubated (unless the nurse is a UTILITY AGENT). Etomidate No Notes: Memori a 02-21 (Same as: l 00:32: Amidate). Lead Per state nursing law etomidate can only be given by a nurse if patient is intubated or being intubated (unless the nurse is a UTILITY AGENT). Etomidate No Notes: Memori a 02-21 (Same as: l 00:32: Amidate). Vinnie Per state nursing law etomidate can only be given by a nurse if patient is intubated or being intubated (unless the nurse is a UTILITY AGENT). Etomidate No Notes: Memori a 02-21 (Same as: l 00:32: Amidate). Lead Per state nursing law etomidate can only be given by a nurse if patient is intubated or being intubated (unless the nurse is a UTILITY AGENT). Etomidate No Notes: Memori a 02-21 (Same as: l 00:32: Amidate). Vinnie 00 Per state nursing law etomidate can only be given by a nurse if patient is intubated or being intubated (unless the nurse is a UTILITY AGENT). Etomidate No Notes: Memori a 02-21 (Same as: l 00:32: Amidate). Vinnie 00 Per state nursing law etomidate can only be given by a nurse if patient is intubated or being intubated (unless the nurse is a UTILITY AGENT). Etomidate No Notes: Memori a 02-21 (Same as: l 00:32: Amidate). Vinnie 00 Per state nursing law etomidate can only be given by a nurse if patient is intubated or being intubated (unless the nurse is a UTILITY AGENT). Etomidate No Notes: Memori a 02-21 (Same as: l 00:32: Amidate). Lead 00 Per state nursing law etomidate can only be given by a nurse if patient is intubated or being intubated (unless the nurse is a UTILITY AGENT). Etomidate No Notes: Memori a 02-21 (Same as: l 00:32: Amidate). Lead 00 Per state nursing law etomidate can only be given by a nurse if patient is intubated or being intubated (unless the nurse is a UTILITY AGENT). Etomidate No Notes: Memori a 02-21 (Same as: l 00:32: Amidate). Lead 00 Per state nursing law etomidate can only be given by a nurse if patient is intubated or being intubated (unless the nurse is a UTILITY AGENT). Etomidate No Notes: Memori a 02-21 (Same as: l 00:32: Amidate). Vinnie 00 Per state nursing law etomidate can only be given by a nurse if patient is intubated or being intubated (unless the nurse is a UTILITY AGENT). Etomidate 0 No Notes: Memori a 02-21 (Same as: l 00:32: Amidate). Vinnie 00 Per state nursing law etomidate can only be given by a nurse if patient is intubated or being intubated (unless the nurse is a UTILITY AGENT). Etomidate 0 No Notes: Memori a 02-21 (Same as: l 00:32: Amidate). Lead 00 Per state nursing law etomidate can only be given by a nurse if patient is intubated or being intubated (unless the nurse is a UTILITY AGENT). Etomidate No Notes: Memori a 02-21 (Same as: l 00:32: Amidate). Lead 00 Per state nursing law etomidate can only be given by a nurse if patient is intubated or being intubated (unless the nurse is a UTILITY AGENT). Etomidate No Notes: Memori a 02-21 (Same as: l 00:32: Amidate). Vinnie 00 Per state nursing law etomidate can only be given by a nurse if patient is intubated or being intubated (unless the nurse is a UTILITY AGENT). Etomidate No Notes: Memori a 02-21 (Same as: l 00:32: Amidate). Vinnie 00 Per state nursing law etomidate can only be given by a nurse if patient is intubated or being intubated (unless the nurse is a UTILITY AGENT). Etomidate No Notes: Memori a 02-21 (Same as: l 00:32: Amidate). Lead 00 Per state nursing law etomidate can only be given by a nurse if patient is intubated or being intubated (unless the nurse is a UTILITY AGENT). Etomidate No Notes: Memori a 02-21 (Same as: l 00:32: Amidate). Lead 00 Per state nursing law etomidate can only be given by a nurse if patient is intubated or being intubated (unless the nurse is a UTILITY AGENT). Etomidate No Notes: Memori a 02-21 (Same as: l 00:32: Amidate). Lead 00 Per state nursing law etomidate can only be given by a nurse if patient is intubated or being intubated (unless the nurse is a UTILITY AGENT). Etomidate 0 No Notes: Memori a 02-21 (Same as: l 00:32: Amidate). Vinnie 00 Per state nursing law etomidate can only be given by a nurse if patient is intubated or being intubated (unless the nurse is a UTILITY AGENT). Etomidate 0 No Notes: Memori a 02-21 (Same as: l 00:32: Amidate). Vinnie 00 Per state nursing law etomidate can only be given by a nurse if patient is intubated or being intubated (unless the nurse is a UTILITY AGENT). Etomidate No Notes: Memori a 02-21 (Same as: l 00:32: Amidate). Vinnie 00 Per state nursing law etomidate can only be given by a nurse if patient is intubated or being intubated (unless the nurse is a UTILITY AGENT). Etomidate No Notes: Memori a 02-21 (Same as: l 00:32: Amidate). Vinnie 00 Per state nursing law etomidate can only be given by a nurse if patient is intubated or being intubated (unless the nurse is a UTILITY AGENT). Etomidate No Notes: Memori a 02-21 (Same as: l 00:32: Amidate). Lead 00 Per state nursing law etomidate can only be given by a nurse if patient is intubated or being intubated (unless the nurse is a UTILITY AGENT). Etomidate No Notes: Memori a 02-21 (Same as: l 00:32: Amidate). Lead 00 Per state nursing law etomidate can only be given by a nurse if patient is intubated or being intubated (unless the nurse is a UTILITY AGENT). Etomidate No Notes: Memori a 02-21 (Same as: l 00:32: Amidate). Lead 00 Per state nursing law etomidate can only be given by a nurse if patient is intubated or being intubated (unless the nurse is a UTILITY AGENT). chlorhexidi No Notes: Semaj shashi ne 02-21 (Same As: l gluconate 00:31: Peridex) Herm avis 1.2 MG/ML 00 Mouthwash cefepime No Notes: Memoria 02-21 (Same as: l 00:31: Maxipime) Lead 00 MEDICATION WASTE Product Size: 2000 mg Product Wasted: ___ mg Sodium No 2,454.54 Memoria Chloride - mL, l 0.9% 00:31: 2454.54 Lead (Bolus) IV 00 ml/hr, Infuse Over: 1 hr, Route: IV, 2,454.54, Drug form: INJ, ONCE, Priority: STAT, Dosing Weight 81.818 kg, Start date: 02/20/19 19:31:00 CDT, Stop date: 02/20/19 19:31:00 CDT chlorhexidi 2018-0 No Notes: Semaj shashi smith 02-21 (Same As: l gluconate 00:31: Peridex) Herm avis 1.2 MG/ML 00 Mouthwash cefepime 0 No Notes: Memoria 02-21 (Same as: l 00:31: Maxipime) Vinnie 00 MEDICATION WASTE Product Size: 2000 mg Product Wasted: ___ mg Sodium 2018- No 2,454.54 Memoria Chloride 6-09 mL, l 0.9% 00:31: 2454.54 Lead (Bolus) IV 00 ml/hr, Infuse Over: 1 hr, Route: IV, 2,454.54, Drug form: INJ, ONCE, Priority: STAT, Dosing Weight 81.818 kg, Start date: 02/20/19 19:31:00 CDT, Stop date: 02/20/19 19:31:00 CDT chlorhexidi 0 No Notes: Semaj shashi smith 02-21 (Same As: l gluconate 00:31: Peridex) Herm avis 1.2 MG/ML 00 Mouthwash cefepime 0 No Notes: Memoria 02-21 (Same as: l 00:31: Maxipime) Lead 00 MEDICATION WASTE Product Size: 2000 mg Product Wasted: ___ mg Sodium No 2,454.54 Memoria Chloride 6-09 mL, l 0.9% 00:31: 2454.54 Lead (Bolus) IV 00 ml/hr, Infuse Over: 1 hr, Route: IV, 2,454.54, Drug form: INJ, ONCE, Priority: STAT, Dosing Weight 81.818 kg, Start date: 02/20/19 19:31:00 CDT, Stop date: 02/20/19 19:31:00 CDT chlorhexidi 0 No Notes: Semaj shashi smith 02-21 (Same As: l gluconate 00:31: Peridex) Herm avis 1.2 MG/ML 00 Mouthwash cefepime No Notes: Memoria 02-21 (Same as: l 00:31: Maxipime) Vinnie 00 MEDICATION WASTE Product Size: 2000 mg Product Wasted: ___ mg Sodium No 2,454.54 Memoria Chloride 6-09 mL, l 0.9% 00:31: 2454.54 Vinnie (Bolus) IV 00 ml/hr, Infuse Over: 1 hr, Route: IV, 2,454.54, Drug form: INJ, ONCE, Priority: STAT, Dosing Weight 81.818 kg, Start date: 02/20/19 19:31:00 CDT, Stop date: 02/20/19 19:31:00 CDT chlorhexidi No Notes: Semaj shashi ne 02-21 (Same As: l gluconate 00:31: Peridex) Herm avis 1.2 MG/ML 00 Mouthwash cefepime No Notes: Memoria 02-21 (Same as: l 00:31: Maxipime) Vinnie 00 MEDICATION WASTE Product Size: 2000 mg Product Wasted: ___ mg Sodium No 2,454.54 Memoria Chloride 6-09 mL, l 0.9% 00:31: 4.54 Lead (Bolus) IV 00 ml/hr, Infuse Over: 1 hr, Route: IV, 2,454.54, Drug form: INJ, ONCE, Priority: STAT, Dosing Weight 81.818 kg, Start date: 02/20/19 19:31:00 CDT, Stop date: 02/20/19 19:31:00 CDT chlorhexidi 0 No Notes: Semaj shashi ne 02-21 (Same As: l gluconate 00:31: Peridex) Herm avis 1.2 MG/ML 00 Mouthwash cefepime No Notes: Memoria 02-21 (Same as: l 00:31: Maxipime) Vinnie 00 MEDICATION WASTE Product Size: 2000 mg Product Wasted: ___ mg Sodium No 2,454.54 Memoria Chloride 6-09 mL, l 0.9% 00:31: 2454.54 Lead (Bolus) IV 00 ml/hr, Infuse Over: 1 hr, Route: IV, 2,454.54, Drug form: INJ, ONCE, Priority: STAT, Dosing Weight 81.818 kg, Start date: 02/20/19 19:31:00 CDT, Stop date: 02/20/19 19:31:00 CDT chlorhexidi 2018-0 No Notes: Semaj shashi ne 02-21 (Same As: l gluconate 00:31: Peridex) Herm avsi 1.2 MG/ML 00 Mouthwash cefepime 0 No Notes: Memoria 02-21 (Same as: l 00:31: Maxipime) Lead 00 MEDICATION WASTE Product Size: 2000 mg Product Wasted: ___ mg Sodium 2018-0 No 2,454.54 Memoria Chloride 6-09 mL, l 0.9% 00:31: 2454.54 Lead (Bolus) IV 00 ml/hr, Infuse Over: 1 hr, Route: IV, 2,454.54, Drug form: INJ, ONCE, Priority: STAT, Dosing Weight 81.818 kg, Start date: 02/20/19 19:31:00 CDT, Stop date: 02/20/19 19:31:00 CDT chlorhexidi 2018-0 No Notes: Semaj shashi ne 02-21 (Same As: l gluconate 00:31: Peridex) Herm avis 1.2 MG/ML 00 Mouthwash cefepime 0 No Notes: Memoria 02-21 (Same as: l 00:31: Maxipime) Vinnie 00 MEDICATION WASTE Product Size: 2000 mg Product Wasted: ___ mg Sodium 2018-0 No 2,454.54 Memoria Chloride 6-09 mL, l 0.9% 00:31: 2454.54 Vinnie (Bolus) IV 00 ml/hr, Infuse Over: 1 hr, Route: IV, 2,454.54, Drug form: INJ, ONCE, Priority: STAT, Dosing Weight 81.818 kg, Start date: 02/20/19 19:31:00 CDT, Stop date: 02/20/19 19:31:00 CDT chlorhexidi 2018-0 No Notes: Semaj shashi ne 02-21 (Same As: l gluconate 00:31: Peridex) Herm avis 1.2 MG/ML 00 Mouthwash cefepime No Notes: Memoria 02-21 (Same as: l 00:31: Maxipime) Vinnie 00 MEDICATION WASTE Product Size: 2000 mg Product Wasted: ___ mg chlorhexidi No Notes: Semaj shashi ne 02-21 (Same As: l gluconate 00:31: Peridex) Herm avis 1.2 MG/ML 00 Mouthwash cefepime No Notes: Memoria 02-21 (Same as: l 00:31: Maxipime) Lead 00 MEDICATION WASTE Product Size: 2000 mg Product Wasted: ___ mg Sodium 2018- No 2,454.54 Memoria Chloride 6-09 mL, l 0.9% 00:31: 2454.54 Vinnie (Bolus) IV 00 ml/hr, Infuse Over: 1 hr, Route: IV, 2,454.54, Drug form: INJ, ONCE, Priority: STAT, Dosing Weight 81.818 kg, Start date: 02/20/19 19:31:00 CDT, Stop date: 02/20/19 19:31:00 CDT Sodium 2019-0 No 2,454.54 Memoria Chloride 6-09 mL, l 0.9% 00:31: 2454.54 Lead (Bolus) IV 00 ml/hr, Infuse Over: 1 hr, Route: IV, 2,454.54, Drug form: INJ, ONCE, Priority: STAT, Dosing Weight 81.818 kg, Start date: 02/20/19 19:31:00 CDT, Stop date: 02/20/19 19:31:00 CDT chlorhexidi No Notes: Semaj shashi ne 02-21 (Same As: l gluconate 00:31: Peridex) Herm avis 1.2 MG/ML 00 Mouthwash cefepime No Notes: Memoria 02-21 (Same as: l 00:31: Maxipime) Lead 00 MEDICATION WASTE Product Size: 2000 mg Product Wasted: ___ mg Sodium 2018- No 2,454.54 Memoria Chloride 6-09 mL, l 0.9% 00:31: 2454.54 Lead (Bolus) IV 00 ml/hr, Infuse Over: 1 hr, Route: IV, 2,454.54, Drug form: INJ, ONCE, Priority: STAT, Dosing Weight 81.818 kg, Start date: 02/20/19 19:31:00 CDT, Stop date: 02/20/19 19:31:00 CDT chlorhexidi 0 No Notes: Semaj shashi ne 02-21 (Same As: l gluconate 00:31: Peridex) Herm avis 1.2 MG/ML 00 Mouthwash cefepime No Notes: Memoria 02-21 (Same as: l 00:31: Maxipime) Lead 00 MEDICATION WASTE Product Size: 2000 mg Product Wasted: ___ mg Sodium No 2,454.54 Memoria Chloride 6-09 mL, l 0.9% 00:31: 2454.54 Lead (Bolus) IV 00 ml/hr, Infuse Over: 1 hr, Route: IV, 2,454.54, Drug form: INJ, ONCE, Priority: STAT, Dosing Weight 81.818 kg, Start date: 02/20/19 19:31:00 CDT, Stop date: 02/20/19 19:31:00 CDT chlorhexidi 0 No Notes: Semaj shashi ne 02-21 (Same As: l gluconate 00:31: Peridex) Herm avis 1.2 MG/ML 00 Mouthwash cefepime 0 No Notes: Memoria 02-21 (Same as: l 00:31: Maxipime) Lead 00 MEDICATION WASTE Product Size: 2000 mg Product Wasted: ___ mg Sodium 2018- No 2,454.54 Memoria Chloride 6-09 mL, l 0.9% 00:31: 2454.54 Vinnie (Bolus) IV 00 ml/hr, Infuse Over: 1 hr, Route: IV, 2,454.54, Drug form: INJ, ONCE, Priority: STAT, Dosing Weight 81.818 kg, Start date: 02/20/19 19:31:00 CDT, Stop date: 02/20/19 19:31:00 CDT chlorhexidi 2019-0 No Notes: Semaj shashi ne 02-21 (Same As: l gluconate 00:31: Peridex) Herm avis 1.2 MG/ML 00 Mouthwash cefepime No Notes: Memoria 02-21 (Same as: l 00:31: Maxipime) Lead 00 MEDICATION WASTE Product Size: 2000 mg Product Wasted: ___ mg Sodium 2018- No 2,454.54 Memoria Chloride 6-09 mL, l 0.9% 00:31: 2454.54 Lead (Bolus) IV 00 ml/hr, Infuse Over: 1 hr, Route: IV, 2,454.54, Drug form: INJ, ONCE, Priority: STAT, Dosing Weight 81.818 kg, Start date: 02/20/19 19:31:00 CDT, Stop date: 02/20/19 19:31:00 CDT chlorhexidi No Notes: Semaj shashi ne 02-21 (Same As: l gluconate 00:31: Peridex) Herm avis 1.2 MG/ML 00 Mouthwash cefepime No Notes: Memoria 02-21 (Same as: l 00:31: Maxipime) Vinnie 00 MEDICATION WASTE Product Size: 2000 mg Product Wasted: ___ mg Sodium No 2,454.54 Memoria Chloride 6-09 mL, l 0.9% 00:31: 2454.54 Lead (Bolus) IV 00 ml/hr, Infuse Over: 1 hr, Route: IV, 2,454.54, Drug form: INJ, ONCE, Priority: STAT, Dosing Weight 81.818 kg, Start date: 02/20/19 19:31:00 CDT, Stop date: 02/20/19 19:31:00 CDT chlorhexidi No Notes: Semaj shashi ne 02-21 (Same As: l gluconate 00:31: Peridex) Herm avis 1.2 MG/ML 00 Mouthwash cefepime No Notes: Memoria 02-21 (Same as: l 00:31: Maxipime) Lead 00 MEDICATION WASTE Product Size: 2000 mg Product Wasted: ___ mg Sodium 2019-0 No 2,454.54 Memoria Chloride 6-09 mL, l 0.9% 00:31: 2454.54 Lead (Bolus) IV 00 ml/hr, Infuse Over: 1 hr, Route: IV, 2,454.54, Drug form: INJ, ONCE, Priority: STAT, Dosing Weight 81.818 kg, Start date: 02/20/19 19:31:00 CDT, Stop date: 02/20/19 19:31:00 CDT chlorhexidi 0 No Notes: Semaj shashi ne 02-21 (Same As: l gluconate 00:31: Peridex) Herm avis 1.2 MG/ML 00 Mouthwash cefepime No Notes: Memoria 02-21 (Same as: l 00:31: Maxipime) Vinnie 00 MEDICATION WASTE Product Size: 2000 mg Product Wasted: ___ mg Sodium No 2,454.54 Memoria Chloride 6-09 mL, l 0.9% 00:31: 2454.54 Vinnie (Bolus) IV 00 ml/hr, Infuse Over: 1 hr, Route: IV, 2,454.54, Drug form: INJ, ONCE, Priority: STAT, Dosing Weight 81.818 kg, Start date: 02/20/19 19:31:00 CDT, Stop date: 02/20/19 19:31:00 CDT chlorhexidi 0 No Notes: Semaj shashi ne 02-21 (Same As: l gluconate 00:31: Peridex) Herm avis 1.2 MG/ML 00 Mouthwash cefepime No Notes: Memoria 02-21 (Same as: l 00:31: Maxipime) Vinnie 00 MEDICATION WASTE Product Size: 2000 mg Product Wasted: ___ mg Sodium 2019-0 No 2,454.54 Memoria Chloride 6-09 mL, l 0.9% 00:31: 2454.54 Vinnie (Bolus) IV 00 ml/hr, Infuse Over: 1 hr, Route: IV, 2,454.54, Drug form: INJ, ONCE, Priority: STAT, Dosing Weight 81.818 kg, Start date: 02/20/19 19:31:00 CDT, Stop date: 02/20/19 19:31:00 CDT chlorhexidi 0 No Notes: Semaj shashi ne 02-21 (Same As: l gluconate 00:31: Peridex) Herm avis 1.2 MG/ML 00 Mouthwash cefepime No Notes: Memoria 02-21 (Same as: l 00:31: Maxipime) Lead 00 MEDICATION WASTE Product Size: 2000 mg Product Wasted: ___ mg Sodium No 2,454.54 Memoria Chloride 6-09 mL, l 0.9% 00:31: 2454.54 Lead (Bolus) IV 00 ml/hr, Infuse Over: 1 hr, Route: IV, 2,454.54, Drug form: INJ, ONCE, Priority: STAT, Dosing Weight 81.818 kg, Start date: 02/20/19 19:31:00 CDT, Stop date: 02/20/19 19:31:00 CDT chlorhexidi No Notes: Semaj shashi ne 02-21 (Same As: l gluconate 00:31: Peridex) Herm avis 1.2 MG/ML 00 Mouthwash cefepime No Notes: Memoria 02-21 (Same as: l 00:31: Maxipime) Vinnie 00 MEDICATION WASTE Product Size: 2000 mg Product Wasted: ___ mg Sodium No 2,454.54 Memoria Chloride 6-09 mL, l 0.9% 00:31: 2454.54 Lead (Bolus) IV 00 ml/hr, Infuse Over: 1 hr, Route: IV, 2,454.54, Drug form: INJ, ONCE, Priority: STAT, Dosing Weight 81.818 kg, Start date: 02/20/19 19:31:00 CDT, Stop date: 02/20/19 19:31:00 CDT chlorhexidi 0 No Notes: Semaj shashi ne 02-21 (Same As: l gluconate 00:31: Peridex) Herm avis 1.2 MG/ML 00 Mouthwash cefepime No Notes: Memoria 02-21 (Same as: l 00:31: Maxipime) Vinnie 00 MEDICATION WASTE Product Size: 2000 mg Product Wasted: ___ mg Sodium No 2,454.54 Memoria Chloride 6-09 mL, l 0.9% 00:31: 2454.54 Vinnie (Bolus) IV 00 ml/hr, Infuse Over: 1 hr, Route: IV, 2,454.54, Drug form: INJ, ONCE, Priority: STAT, Dosing Weight 81.818 kg, Start date: 02/20/19 19:31:00 CDT, Stop date: 02/20/19 19:31:00 CDT chlorhexidi 0 No Notes: Semaj shashi ne 02-21 (Same As: l gluconate 00:31: Peridex) Herm avis 1.2 MG/ML 00 Mouthwash cefepime No Notes: Memoria 02-21 (Same as: l 00:31: Maxipime) Vinnie 00 MEDICATION WASTE Product Size: 2000 mg Product Wasted: ___ mg Sodium No 2,454.54 Memoria Chloride 6-09 mL, l 0.9% 00:31: 2454.54 Lead (Bolus) IV 00 ml/hr, Infuse Over: 1 hr, Route: IV, 2,454.54, Drug form: INJ, ONCE, Priority: STAT, Dosing Weight 81.818 kg, Start date: 02/20/19 19:31:00 CDT, Stop date: 02/20/19 19:31:00 CDT chlorhexidi 0 No Notes: Semaj shashi ne 02-21 (Same As: l gluconate 00:31: Peridex) Herm avis 1.2 MG/ML 00 Mouthwash cefepime No Notes: Memoria 02-21 (Same as: l 00:31: Maxipime) Vinnie 00 MEDICATION WASTE Product Size: 2000 mg Product Wasted: ___ mg Sodium 2018- No 2,454.54 Memoria Chloride 6-09 mL, l 0.9% 00:31: 2454.54 Lead (Bolus) IV 00 ml/hr, Infuse Over: 1 hr, Route: IV, 2,454.54, Drug form: INJ, ONCE, Priority: STAT, Dosing Weight 81.818 kg, Start date: 02/20/19 19:31:00 CDT, Stop date: 02/20/19 19:31:00 CDT chlorhexidi 0 No Notes: Semaj shashi ne 02-21 (Same As: l gluconate 00:31: Peridex) Herm avis 1.2 MG/ML 00 Mouthwash cefepime No Notes: Memoria 02-21 (Same as: l 00:31: Maxipime) Vinnie 00 MEDICATION WASTE Product Size: 2000 mg Product Wasted: ___ mg Sodium 2018- No 2,454.54 Memoria Chloride 6-09 mL, l 0.9% 00:31: 2454.54 Vinnie (Bolus) IV 00 ml/hr, Infuse Over: 1 hr, Route: IV, 2,454.54, Drug form: INJ, ONCE, Priority: STAT, Dosing Weight 81.818 kg, Start date: 02/20/19 19:31:00 CDT, Stop date: 02/20/19 19:31:00 CDT chlorhexidi No Notes: Semaj shashi ne 02-21 (Same As: l gluconate 00:31: Peridex) Herm avis 1.2 MG/ML 00 Mouthwash cefepime No Notes: Memoria 02-21 (Same as: l 00:31: Maxipime) Vinnie 00 MEDICATION WASTE Product Size: 2000 mg Product Wasted: ___ mg Sodium 2018- No 2,454.54 Memoria Chloride 6-09 mL, l 0.9% 00:31: 2454.54 Vinnie (Bolus) IV 00 ml/hr, Infuse Over: 1 hr, Route: IV, 2,454.54, Drug form: INJ, ONCE, Priority: STAT, Dosing Weight 81.818 kg, Start date: 02/20/19 19:31:00 CDT, Stop date: 02/20/19 19:31:00 CDT chlorhexidi 0 No Notes: Semaj shashi ne 02-21 (Same As: l gluconate 00:31: Peridex) Herm avis 1.2 MG/ML 00 Mouthwash cefepime No Notes: Memoria 02-21 (Same as: l 00:31: Maxipime) Vinnie 00 MEDICATION WASTE Product Size: 2000 mg Product Wasted: ___ mg Sodium 2019- No 2454.54 Memoria Chloride 6-09 mL, l 0.9% 00:31: 4.54 Lead (Bolus) IV 00 ml/hr, Infuse Over: 1 hr, Route: IV, 2,454.54, Drug form: INJ, ONCE, Priority: STAT, Dosing Weight 81.818 kg, Start date: 02/20/19 19:31:00 CDT, Stop date: 02/20/19 19:31:00 CDT chlorhexidi No Notes: Semaj shashi ne 02-21 (Same As: l gluconate 00:31: Peridex) Herm avis 1.2 MG/ML 00 Mouthwash cefepime No Notes: Memoria 02-21 (Same as: l 00:31: Maxipime) Lead 00 MEDICATION WASTE Product Size: 2000 mg Product Wasted: ___ mg Sodium 2018- No 454.54 Memoria Chloride 6-09 mL, l 0.9% 00:31: 4.54 Lead (Bolus) IV 00 ml/hr, Infuse Over: 1 hr, Route: IV, 2,454.54, Drug form: INJ, ONCE, Priority: STAT, Dosing Weight 81.818 kg, Start date: 02/20/19 19:31:00 CDT, Stop date: 02/20/19 19:31:00 CDT carvedilol 2019-0 Yes 6.25mg Take 6.25 Univers 6.25 mg 6-01 mg by ity of tablet 02:46: mouth 2 [place] [address] (two) Medical [facility] daily with meals. isosorbide 2019-0 Yes 20mg Take 20 mg U nivers dinitrate 6-01 by mouth 2 ity of 20 mg 02:46: (two) [place] tablet times [facility] daily. Branch furosemide 2019-0 Yes 20mg Take 20 mg U nivers 20 mg 6-01 by mouth ity of tablet 02:46: daily. [address] amLODIPine 2019-0 Yes 5mg Take 5 mg Un jie 5 mg tablet 6-01 by mouth ity of 02:46: daily. [address] montelukast 2018-0 Yes 10mg Take 10 mg Univers 10 mg 6-01 by mouth ity of tablet 02:46: at [place] [address] bedtime. Medical Branch Budesonide 2019-0 Yes 1{puff} [...] mg by ity of 02:46: mouth at [place] [address] bedtime. Medical Branch aspirin 81 2018-0 Yes 81mg Take 81 mg U nivers mg chewable 6- by mouth ity of tablet 02:46: daily. [place] [address] Medical Branch DOCOSAHEXAN 0 Yes Take by Uni vers OIC 6-01 mouth. ity of ACID/EPA 02:46: [place] (FISH OIL 16 Medical ORAL) Branch ASCORBATE 0 Yes Take by Unive rs CALCIUM 6-01 mouth. ity of (VITAMIN C 02:46: [place] ORAL) Medical Branch VITAMIN B Yes Take by Unive rs COMPLEX 6-01 mouth. ity of ORAL 02:46: [address] glipiZIDE 5 2018-0 Yes 5mg Take 5 mg U nivers mg tablet 6-01 by mouth ity of 02:46: daily. [place] [address] Medical Branch carvedilol 2018-0 Yes 6.25mg Take 6.25 Univers 6.25 mg 6-01 mg by ity of tablet 02:46: mouth 2 [place] [address] (two) Medical times Branch daily with meals. isosorbide 2018-0 Yes 20mg Take 20 mg U nivers dinitrate 6-01 by mouth 2 ity of 20 mg 02:46: (two) [place] tablet times Medical daily. Branch furosemide 0 Yes 20mg Take 20 mg U nivers 20 mg 6-01 by mouth ity of tablet 02:46: daily. [place] [address] Medical Branch amLODIPine 2018-0 Yes 5mg Take 5 mg Un jie 5 mg tablet 6-01 by mouth ity of 02:46: daily. [address] Branch montelukast 2019-0 Yes 10mg Take 10 mg Univers 10 mg 6-01 by mouth ity of tablet 02:46: at [place] [address] bedtime. Medical Branch Budesonide 2019-0 Yes 1{puff} Inhale 1 Univers (PULMICORT 6- Puff at ity of FLEXHALER) 02:46: bedtime. [place] as 180 Medical mcg/actuati Branch on aerosol powder Potassium 2019-0 Yes 1{tbl} Take 1 Univ ers Gluconate 6- tablet by ity o f 595 mg (99 02:46: [place] mg[place] Tab 16 (two) Medical times Branch daily. MAGNESIUM 2018-0 Yes 200mg Take 200 Uni vers OXIDE ORAL 6-01 mg by ity of 02:46: mouth at [place] [address] bedtime. Medical Branch aspirin 81 0 Yes 81mg Take 81 mg U nivers mg chewable 6- by mouth ity of tablet 02:46: daily. [address] Branch DOCOSAHEXAN Yes Take by Uni vers OIC 6-01 mouth. ity of ACID/EPA 02:46: [place] (FISH OIL 16 Medical ORAL) Branch ASCORBATE 0 Yes Take by Unive rs CALCIUM 6-01 mouth. ity of (VITAMIN C 02:46: [place] ORAL) Medical Branch VITAMIN B Yes Take by Unive rs COMPLEX 6-01 mouth. ity of ORAL 02:46: [address] Branch glipiZIDE 5 2018-0 Yes 5mg Take 5 mg U nivers mg tablet 6-01 by mouth ity of 02:46: daily. [place] [address] Medical Branch carvedilol 0 Yes 6.25mg Take 6.25 Univers 6.25 mg 6-01 mg by ity of tablet 02:46: mouth 2 [place] [address] (two) Medical times Branch daily with meals. isosorbide 20190 Yes 20mg Take 20 mg U nivers dinitrate 6-01 by mouth 2 ity of 20 mg 02:46: (two) [place] tablet 16 times Medical daily. Branch furosemide 20190 Yes 20mg Take 20 mg U nivers 20 mg 6-01 by mouth ity of tablet 02:46: daily. [place] [address] Medical Branch amLODIPine 2018-0 Yes 5mg Take 5 mg Un jie 5 mg tablet 6-01 by mouth ity of 02:46: daily. [place] 16 Medical Branch montelukast Yes 10mg Take 10 mg Univers 10 mg 6-01 by mouth ity of tablet 02:46: at [place] [address] bedtime. Medical Branch Budesonide 2018- Yes 1{puff} Inhale 1 Univers (PULMICORT 6- Puff at ity of FLEXHALER) 02:46: bedtime. [place] as 180 16 Medical mcg/actuati Branch on aerosol powder Potassium Yes 1{tbl} Take 1 Univ ers Gluconate 6- tablet by ity o f 595 mg (99 02:46: [place] 2 [place] mg) Tab 16 (two) Medical times Branch daily. MAGNESIUM Yes 200mg Take 200 Uni vers OXIDE ORAL 6- mg by ity of 02:46: mouth at [place] [address] bedtime. Medical Branch aspirin 81 Yes 81mg Take 81 mg U nivers mg chewable 6- by mouth ity of tablet 02:46: daily. [place] [address] Medical Branch DOCOSAHEXAN Yes Take by Uni vers OIC 6- mouth. ity of ACID/EPA 02:46: [place] (FISH OIL 16 Medical ORAL) Branch ASCORBATE Yes Take by Unive rs CALCIUM 6- mouth. ity of (VITAMIN C 02:46: [place] ORAL) 16 Medical Branch VITAMIN B Yes Take by Unive rs COMPLEX 6-01 mouth. ity of ORAL 02:46: [place] [address] Medical Branch glipiZIDE 5 Yes 5mg Take 5 mg U nivers mg tablet 6- by mouth ity of 02:46: daily. [place] [address] Medical Branch bisacodyl 5 Yes [id number] 10mg Take 2 Univers mg EC 6-01 tablets by ity of tablet 00:00: mouth [place] 00 daily. Medical Branch bisacodyl 5 Yes [id number] 10mg Take 2 Univers mg EC 6-01 tablets by ity of tablet 00:00: mouth [place] 00 daily. Medical Branch bisacodyl 5 Yes [id number] 10mg Take 2 Univers mg EC 6-01 tablets by ity of tablet 00:00: mouth [place] 00 daily. Medical Branch bisacodyl 5 Yes [id number] 10mg Take 2 Univers mg EC 6-01 tablets by ity of tablet 00:00: mouth [place] 00 daily. Medical Branch bisacodyl 5 Yes [id number] 10mg Take 2 Univers mg EC 6-01 tablets by ity of tablet 00:00: mouth [place] 00 daily. Medical Branch bisacodyl 5 Yes [id number] 10mg Take 2 Univers mg EC 6-01 tablets by ity of tablet 00:00: mouth [place] 00 daily. Medical Branch bisacodyl 5 Yes [id number] 10mg Take 2 Univers mg EC 6-01 tablets by ity of tablet 00:00: mouth [place] 00 daily. Medical Branch bisacodyl 5 Yes [id number] 10mg Take 2 Univers mg EC 6-01 tablets by ity of tablet 00:00: mouth [place] 00 daily. Medical Branch bisacodyl 5 Yes [id number] 10mg Take 2 Univers mg EC 6-01 tablets by ity of tablet 00:00: mouth [place] 00 daily. Medical Branch bisacodyl 5 Yes [id number] 10mg Take 2 Univers mg EC 6-01 tablets by ity of tablet 00:00: mouth [place] 00 daily. Medical Branch bisacodyl 5 Yes [id number] 10mg Take 2 Univers mg EC 6-01 tablets by ity of tablet 00:00: mouth [place] 00 daily. Medical Branch bisacodyl 5 Yes [id number] 10mg Take 2 Univers mg EC 6-01 tablets by ity of tablet 00:00: mouth [place] 00 daily. Medical Branch bisacodyl 5 Yes [id number] 10mg Take 2 Univers mg EC 6-01 tablets by ity of tablet 00:00: mouth [place] 00 daily. Medical Branch bisacodyl 5 Yes [id number] 10mg Take 2 Univers mg EC 6-01 tablets by ity of tablet 00:00: mouth [place] 00 daily. Medical Branch bisacodyl 5 Yes [id number] 10mg Take 2 Univers mg EC 6-01 tablets by ity of tablet 00:00: mouth [place] 00 daily. Medical Branch bisacodyl 5 Yes [id number] 10mg Take 2 Univers mg EC 6-01 tablets by ity of tablet 00:00: mouth [place] 00 daily. Medical Branch bisacodyl 5 Yes [id number] 10mg Take 2 Univers mg EC 6-01 tablets by ity of tablet 00:00: mouth [place] 00 daily. Medical Branch bisacodyl 5 Yes [id number] 10mg Take 2 Univers mg EC 6-01 tablets by ity of tablet 00:00: mouth [place] 00 daily. Medical Branch bisacodyl 5 Yes [id number] 10mg Take 2 Univers mg EC 6-01 tablets by ity of tablet 00:00: mouth [place] 00 daily. Medical Branch bisacodyl 5 Yes [id number] 10mg Take 2 Univers mg EC 6-01 tablets by ity of tablet 00:00: mouth [place] 00 daily. Medical Branch bisacodyl 5 Yes [id number] 10mg Take 2 Univers mg EC 6-01 tablets by ity of tablet 00:00: mouth [place] 00 daily. Medical Branch bisacodyl 5 Yes [id number] 10mg Take 2 Univers mg EC 6-01 tablets by ity of tablet 00:00: mouth [place] 00 daily. Medical Branch bisacodyl 5 Yes [id number] 10mg Take 2 Univers mg EC 6-01 tablets by ity of tablet 00:00: mouth [place] 00 daily. Medical Branch bisacodyl 5 Yes [id number] 10mg Take 2 Univers mg EC 6-01 tablets by ity of tablet 00:00: mouth [place] 00 daily. Medical Branch bisacodyl 5 Yes [id number] 10mg Take 2 Univers mg EC 6-01 tablets by ity of tablet 00:00: mouth [place] 00 daily. Medical Branch bisacodyl 5 Yes [id number] 10mg Take 2 Univers mg EC 6-01 tablets by ity of tablet 00:00: mouth [place] 00 daily. Medical Branch bisacodyl 5 Yes [id number] 10mg Take 2 Univers mg EC 6-01 tablets by ity of tablet 00:00: mouth [place] 00 daily. Medical Branch bisacodyl 5 Yes [id number] 10mg Take 2 Univers mg EC 6-01 tablets by ity of tablet 00:00: mouth [place] 00 daily. Medical Branch bisacodyl 5 Yes [id number] 10mg Take 2 Univers mg EC 6-01 tablets by ity of tablet 00:00: mouth [place] 00 daily. Medical Branch bisacodyl 5 Yes [id number] 10mg Take 2 [facility] mg EC 6-01 tablets by ity of tablet 00:00: mouth [place] 00 daily. Medical Branch bisacodyl 5 Yes [id number] 10mg Take 2 Univers mg EC 6-01 tablets by ity of tablet 00:00: mouth [place] 00 daily. Medical Branch bisacodyl 5 Yes [id number] 10mg Take 2 Univers mg EC 6-01 tablets by ity of tablet 00:00: mouth [place] 00 daily. Medical Branch bisacodyl 5 Yes [id number] 10mg Take 2 Univers mg EC 6-01 tablets by ity of tablet 00:00: mouth [place] 00 daily. Medical [facility] [id number] 1{tbl} Take 1 Univers docusate 5-31 tablet by ity of sodium 00:00: mouth 2 [place] 8.6-50 mg 00 (two) Medical per tablet times Branch daily. HYDROcodone Yes [id number] 1{tbl} Take 1 Univers -acetaminop 5-31 tablet by ity of hen 5-325 00:00: mouth [place] mg tablet 00 every 6 Medical (six) Branch hours as needed for Pain (scale 7-10). insulin Yes [id number] 10U inject 10 Univers aspart 5-31 Units ity of injection 00:00: under the [place] as 00 skin TID Medical MEALS+HS. Branch Levothyroxi Yes [id number] 112ug Take 1 Univers ne 112 mcg 5-31 capsule by ity of capsule 00:00: mouth [place] 00 daily. Medical Branch sennoside- Yes [id number] 1{tbl} Take 1 Univers docusate 5-31 tablet by ity of sodium 00:00: mouth 2 [place] 8.6-50 mg 00 (two) Medical per tablet times Branch daily. HYDROcodone Yes [id number] 1{tbl} Take 1 Univers -acetaminop 5-31 tablet by ity of hen 5-325 00:00: mouth [place] mg tablet 00 every 6 Medical (six) Branch hours as needed for Pain (scale 7-10). insulin Yes [id number] 10U inject 10 Univers aspart 5-31 Units ity of injection 00:00: under the [place] as 00 skin TID Medical MEALS+HS. Branch Levothyroxi Yes [id number] 112ug Take 1 Univers ne 112 mcg 5-31 capsule by ity of capsule 00:00: mouth [place] 00 daily. Medical [facility] Yes [id number] 1{tbl} Take 1 [facility] docusate 5-31 tablet by ity of sodium 00:00: mouth 2 [place] 8.6-50 mg 00 (two) Medical per tablet times Branch daily. HYDROcodone Yes [id number] 1{tbl} Take 1 Univers -acetaminop 5-31 tablet by ity of hen 5-325 00:00: mouth [place] mg tablet 00 every 6 Medical (six) Branch hours as needed for Pain (scale 7-10). insulin Yes [id number] 10U inject 10 [facility] aspart 5-31 Units ity of injection 00:00: under the [place] as 00 skin TID Medical MEALS+HS. Branch Levothyroxi Yes [id number] 112ug Take 1 Univers ne 112 mcg 5-31 capsule by ity of capsule 00:00: mouth [place] 00 daily. Medical Branch [facility]- Yes [id number] 1{tbl} Take 1 Univers docusate 5-31 tablet by ity of sodium 00:00: mouth 2 [place] 8.6-50 mg 00 (two) Medical per tablet times Branch daily. HYDROcodone Yes [id number] 1{tbl} Take 1 Univers -acetaminop 5-31 tablet by ity of hen 5-325 00:00: mouth [place] mg tablet 00 every 6 Medical (six) Branch hours as needed for Pain (scale 7-10). insulin Yes [id number] 10U inject 10 [facility] aspart 5-31 Units ity of injection 00:00: under the [place] 00 skin TID Medical MEALS+HS. Branch Levothyroxi Yes [id number] 112ug Take 1 Univers ne 112 mcg 5-31 capsule by ity of capsule 00:00: mouth [place] 00 daily. Medical Branch [facility]- Yes [id number] 1{tbl} Take 1 Univers docusate 5-31 tablet by ity of sodium 00:00: mouth 2 [place] 8.6-50 mg 00 (two) Medical per tablet times Branch daily. HYDROcodone Yes [id number] 1{tbl} Take 1 Univers -acetaminop 5-31 tablet by ity of hen 5-325 00:00: mouth [place] mg tablet 00 every 6 Medical (six) Branch hours as needed for Pain (scale 7-10). insulin Yes [id number] 10U inject 10 Univers aspart 5-31 Units ity of injection 00:00: under the [place] 00 skin TID Medical MEALS+HS. Branch Levothyroxi Yes [id number] 112ug Take 1 Univers ne 112 mcg 5-31 capsule by ity of capsule 00:00: mouth [place] 00 daily. Medical Branch sennosides- Yes [id number] 1{tbl} Take 1 Univers docusate 5-31 tablet by ity of sodium 00:00: mouth 2 [place] 8.6-50 mg 00 (two) Medical per tablet times Branch daily. HYDROcodone Yes [id number] 1{tbl} Take 1 Univers -acetaminop 5-31 tablet by ity of hen 5-325 00:00: mouth [place] mg tablet 00 every 6 Medical (six) Branch hours as needed for Pain (scale 7-10). insulin Yes [id number] 10U inject 10 [facility] aspart 5-31 Units ity of injection 00:00: under the [place] 00 skin TID Medical MEALS+HS. Branch Levothyroxi Yes [id number] 112ug Take 1 Univers ne 112 mcg 5-31 capsule by ity of capsule 00:00: mouth [place] 00 daily. Medical Branch [facility]- Yes [id number] 1{tbl} Take 1 Univers docusate 5-31 tablet by ity of sodium 00:00: mouth 2 [place] 8.6-50 mg 00 (two) Medical per tablet times Branch daily. HYDROcodone Yes [id number] 1{tbl} Take 1 Univers -acetaminop 5-31 tablet by ity of hen 5-325 00:00: mouth [place] mg tablet 00 every 6 Medical (six) Branch hours as needed for Pain (scale 7-10). [facility]- Yes [id number] 1{tbl} Take 1 Univers docusate 5-31 tablet by ity of sodium 00:00: mouth 2 [place] 8.6-50 mg 00 (two) Medical per tablet times Branch daily. HYDROcodone Yes [id number] 1{tbl} Take 1 Univers -acetaminop 5-31 tablet by ity of hen 5-325 00:00: mouth [place] mg tablet 00 every 6 Medical (six) Branch hours as needed for Pain (scale 7-10). insulin Yes [id number] 10U inject 10 [facility] aspart 5-31 Units ity of injection 00:00: under the [place] 00 skin TID Medical MEALS+HS. Branch Levothyroxi Yes [id number] 112ug Take 1 Univers ne 112 mcg 5-31 capsule by ity of capsule 00:00: mouth [place] 00 daily. Medical Branch insulin Yes [id number] 10U inject 10 [facility] aspart 5-31 Units ity of injection 00:00: under the [place] 00 skin TID Medical MEALS+HS. Branch warfarin 5 Yes [id number] Take 1 Univers mg tablet 5-31 tablet (5 ity o f 00:00: mg) on [place] 00 Friday, Medical Friday, Branch Friday, take 0.5 tablet (2.5mg) on Friday, and Friday sennosides- Yes [id number] 1{tbl} Take 1 Univers docusate 5-31 tablet by ity of sodium 00:00: mouth 2 [place] 8.6-50 mg 00 (two) Medical per tablet times Branch daily. HYDROcodone Yes [id number] 1{tbl} Take 1 Univers -acetaminop 5-31 tablet by ity of hen 5-325 00:00: mouth [place] mg tablet 00 every 6 Medical (six) Branch hours as needed for Pain (scale 7-10). insulin Yes [id number] 10U inject 10 [facility] aspart 5-31 Units ity of injection 00:00: under the [place] 00 skin TID Medical MEALS+HS. Branch Levothyroxi Yes [id number] 112ug Take 1 Univers ne 112 mcg 5-31 capsule by ity of capsule 00:00: mouth [place] 00 daily. Medical Branch Levothyroxi Yes [id number] 112ug Take 1 Univers ne 112 mcg 5-31 capsule by ity of capsule 00:00: mouth [place] 00 daily. Medical [facility] Yes [id number] 1{tbl} Take 1 [facility] docusate 5-31 tablet by ity of sodium 00:00: mouth 2 [place] 8.6-50 mg 00 (two) Medical per tablet times Branch daily. HYDROcodone Yes [id number] 1{tbl} Take 1 Univers -acetaminop 5-31 tablet by ity of hen 5-325 00:00: mouth [place] mg tablet 00 every 6 Medical (six) Branch hours as needed for Pain (scale 7-10). insulin Yes [id number] 10U inject 10 [facility] aspart 5-31 Units ity of injection 00:00: under the [place] 00 skin TID Medical MEALS+HS. Branch Levothyroxi Yes [id number] 112ug Take 1 Univers ne 112 mcg 5-31 capsule by ity of capsule 00:00: mouth [place] 00 daily. Medical Branch [facility]- Yes [id number] 1{tbl} Take 1 [facility] docusate 5-31 tablet by ity of sodium 00:00: mouth 2 [place] 8.6-50 mg 00 (two) Medical per tablet times Branch daily. HYDROcodone Yes [id number] 1{tbl} Take 1 Univers -acetaminop 5-31 tablet by ity of hen 5-325 00:00: mouth [place] mg tablet 00 every 6 Medical (six) Branch hours as needed for Pain (scale 7-10). insulin Yes [id number] 10U inject 10 [facility] aspart 5-31 Units ity of injection 00:00: under the [place] 00 skin TID Medical MEALS+HS. Branch Levothyroxi Yes [id number] 112ug Take 1 Univers ne 112 mcg 5-31 capsule by ity of capsule 00:00: mouth [place] 00 daily. Medical Branch [facility]- Yes [id number] 1{tbl} Take 1 [facility] docusate 5-31 tablet by ity of sodium 00:00: mouth 2 [place] 8.6-50 mg 00 (two) Medical per tablet times Branch daily. HYDROcodone Yes [id number] 1{tbl} Take 1 [facility] -acetaminop 5-31 tablet by ity of hen 5-325 00:00: mouth [place] mg tablet 00 every 6 Medical (six) Branch hours as needed for Pain (scale 7-10). insulin Yes [id number] 10U inject 10 [facility] aspart 5-31 Units ity of injection 00:00: under the [place] as 00 skin TID Medical MEALS+HS. Branch Levothyroxi Yes [id number] 112ug Take 1 [facility] ne 112 mcg 5-31 capsule by ity of capsule 00:00: mouth [place] 00 daily. Medical Branch [facility]- Yes [id number] 1{tbl} Take 1 [facility] docusate 5-31 tablet by ity of sodium 00:00: mouth 2 [place] 8.6-50 mg 00 (two) Medical per tablet times Branch daily. HYDROcodone Yes [id number] 1{tbl} Take 1 [facility] -acetaminop 5-31 tablet by ity of hen 5-325 00:00: mouth [place] mg tablet 00 every 6 Medical (six) Branch hours as needed for Pain (scale 7-10). insulin Yes [id number] 10U inject 10 [facility] aspart 5-31 Units ity of injection 00:00: under the [place] as 00 skin TID Medical MEALS+HS. Branch Levothyroxi Yes [id number] 112ug Take 1 [facility] ne 112 mcg 5-31 capsule by ity of capsule 00:00: mouth [place] 00 daily. Medical [facility]- Yes [id number] 1{tbl} Take 1 [facility] docusate 5-31 tablet by ity of sodium 00:00: mouth 2 [place] 8.6-50 mg 00 (two) Medical per tablet times Branch daily. HYDROcodone Yes [id number] 1{tbl} Take 1 [facility] -acetaminop 5-31 tablet by ity of hen 5-325 00:00: mouth [place] mg tablet 00 every 6 Medical (six) Branch hours as needed for Pain (scale 7-10). insulin Yes [id number] 10U inject 10 [facility] aspart 5-31 Units ity of injection 00:00: under the [place] as 00 skin TID Medical MEALS+HS. Branch Levothyroxi Yes [id number] 112ug Take 1 [facility] ne 112 mcg 5-31 capsule by ity of capsule 00:00: mouth [place] 00 daily. [facility] Branch [facility] Yes [id number] 1{tbl} Take 1 [facility] docusate 5-31 tablet by ity of sodium 00:00: mouth 2 [place] 8.6-50 mg 00 (two) Medical per tablet times Branch daily. HYDROcodone Yes [id number] 1{tbl} Take 1 [facility] -acetaminop 5-31 tablet by ity of hen 5-325 00:00: mouth [place] mg tablet 00 every 6 Medical (six) Branch hours as needed for Pain (scale 7-10). insulin Yes [id number] 10U inject 10 [facility] aspart 5-31 Units ity of injection 00:00: under the [place] as 00 skin TID Medical MEALS+HS. Branch Levothyroxi Yes [id number] 112ug Take 1 [facility] ne 112 mcg 5-31 capsule by ity of capsule 00:00: mouth [place] 00 daily. Medical Branch [facility]- Yes [id number] 1{tbl} Take 1 [facility] docusate 5-31 tablet by ity of sodium 00:00: mouth 2 [place] 8.6-50 mg 00 (two) Medical per tablet times Branch daily. HYDROcodone Yes [id number] 1{tbl} Take 1 [facility] -acetaminop 5-31 tablet by ity of hen 5-325 00:00: mouth [place] mg tablet 00 every 6 Medical (six) Branch hours as needed for Pain (scale 7-10). insulin Yes [id number] 10U inject 10 [facility] aspart 5-31 Units ity of injection 00:00: under the [place] as 00 skin TID Medical MEALS+HS. Branch Levothyroxi Yes [id number] 112ug Take 1 [facility] ne 112 mcg 5-31 capsule by ity of capsule 00:00: mouth [place] 00 daily. Medical Branch [facility]- Yes [id number] 1{tbl} Take 1 [facility] docusate 5-31 tablet by ity of sodium 00:00: mouth 2 [place] 8.6-50 mg 00 (two) Medical per tablet times Branch daily. HYDROcodone Yes [id number] 1{tbl} Take 1 [facility] -acetaminop 5-31 tablet by ity of hen 5-325 00:00: mouth [place] mg tablet 00 every 6 Medical (six) Branch hours as needed for Pain (scale 7-10). insulin Yes [id number] 10U inject 10 [facility] aspart 5-31 Units ity of injection 00:00: under the [place] as 00 skin TID Medical MEALS+HS. Branch Levothyroxi Yes [id number] 112ug Take 1 [facility] ne 112 mcg 5-31 capsule by ity of capsule 00:00: mouth [place] 00 daily. Medical Branch [facility]- Yes [id number] 1{tbl} Take 1 [facility] docusate 5-31 tablet by ity of sodium 00:00: mouth 2 [place] 8.6-50 mg 00 (two) Medical per tablet times Branch daily. sennosides- Yes [id number] 1{tbl} Take 1 [facility] docusate 5-31 tablet by ity of sodium 00:00: mouth 2 [place] 8.6-50 mg 00 (two) Medical per tablet times Branch daily. HYDROcodone Yes [id number] 1{tbl} Take 1 [facility] -acetaminop 5-31 tablet by ity of hen 5-325 00:00: mouth [place] mg tablet 00 every 6 Medical (six) Branch hours as needed for Pain (scale 7-10). insulin Yes [id number] 10U inject 10 [facility] aspart 5-31 Units ity of injection 00:00: under the [place] as 00 skin TID Medical MEALS+HS. Branch Levothyroxi Yes [id number] 112ug Take 1 [facility] ne 112 mcg 5-31 capsule by ity of capsule 00:00: mouth [place] 00 daily. Medical Branch HYDROcodone Yes [id number] 1{tbl} Take 1 [facility] -acetaminop 5-31 tablet by ity of hen 5-325 00:00: mouth [place] mg tablet 00 every 6 Medical (six) Branch hours as needed for Pain (scale 7-10). insulin Yes [id number] 10U inject 10 [facility] aspart 5-31 Units ity of injection 00:00: under the [place] as 00 skin TID Medical MEALS+HS. Branch warfarin 5 Yes [id number] Take 1 [facility] mg tablet 5-31 tablet (5 ity o f 00:00: mg) on [place] 00 Friday, Medical Friday, Branch Friday, take 0.5 tablet (2.5mg) on Friday, and Friday [facility]- Yes [id number] 1{tbl} Take 1 [facility] docusate 5-31 tablet by ity of sodium 00:00: mouth 2 [place] 8.6-50 mg 00 (two) Medical per tablet times Branch daily. HYDROcodone Yes [id number] 1{tbl} Take 1 [facility] -acetaminop 5-31 tablet by ity of hen 5-325 00:00: mouth [place] mg tablet 00 every 6 Medical (six) Branch hours as needed for Pain (scale 7-10). insulin Yes [id number] 10U inject 10 [facility] aspart 5-31 Units ity of injection 00:00: under the [place] as 00 skin TID Medical MEALS+HS. Branch Levothyroxi Yes [id number] 112ug Take 1 [facility] ne 112 mcg 5-31 capsule by ity of capsule 00:00: mouth [place] 00 daily. Medical Branch Levothyroxi Yes [id number] 112ug Take 1 [facility] ne 112 mcg 5-31 capsule by ity of capsule 00:00: mouth [place] 00 daily. [facility] Branch [facility] Yes [id number] 1{tbl} Take 1 [facility] docusate 5-31 tablet by ity of sodium 00:00: mouth 2 [place] 8.6-50 mg 00 (two) Medical per tablet times Branch daily. HYDROcodone Yes [id number] 1{tbl} Take 1 [facility] -acetaminop 5-31 tablet by ity of hen 5-325 00:00: mouth [place] mg tablet 00 every 6 Medical (six) Branch hours as needed for Pain (scale 7-10). insulin Yes [id number] 10U inject 10 [facility] aspart 5-31 Units ity of injection 00:00: under the [place] as 00 skin TID Medical MEALS+HS. Branch Levothyroxi Yes [id number] 112ug Take 1 [facility] ne 112 mcg 5-31 capsule by ity of capsule 00:00: mouth [place] 00 daily. Medical Branch [facility]- Yes [id number] 1{tbl} Take 1 [facility] docusate 5-31 tablet by ity of sodium 00:00: mouth 2 [place] 8.6-50 mg 00 (two) Medical per tablet times Branch daily. HYDROcodone Yes [id number] 1{tbl} Take 1 [facility] -acetaminop 5-31 tablet by ity of hen 5-325 00:00: mouth [place] mg tablet 00 every 6 Medical (six) Branch hours as needed for Pain (scale 7-10). insulin Yes [id number] 10U inject 10 [facility] aspart 5-31 Units ity of injection 00:00: under the [place] as 00 skin TID Medical MEALS+HS. Branch Levothyroxi Yes [id number] 112ug Take 1 [facility] ne 112 mcg 5-31 capsule by ity of capsule 00:00: mouth [place] 00 daily. [facility] [place] [id number] 1{tbl} Take 1 [facility] docusate 5-31 tablet by ity of sodium 00:00: mouth 2 [place] 8.6-50 mg 00 (two) Medical per tablet times Branch daily. HYDROcodone Yes [id number] 1{tbl} Take 1 [facility] -acetaminop 5-31 tablet by ity of hen 5-325 00:00: mouth [place] mg tablet 00 every 6 Medical (six) Branch hours as needed for Pain (scale 7-10). insulin Yes [id number] 10U inject 10 [facility] aspart 5-31 Units ity of injection 00:00: under the [place] as 00 skin TID Medical MEALS+HS. Branch Levothyroxi Yes [id number] 112ug Take 1 [facility] ne 112 mcg 5-31 capsule by ity of capsule 00:00: mouth [place] 00 daily. [facility]- Yes [id number] 1{tbl} Take 1 [facility] docusate 5-31 tablet by ity of sodium 00:00: mouth 2 [place] 8.6-50 mg 00 (two) Medical per tablet times Branch daily. HYDROcodone Yes [id number] 1{tbl} Take 1 [facility] -acetaminop 5-31 tablet by ity of hen 5-325 00:00: mouth [place] mg tablet 00 every 6 Medical (six) Branch hours as needed for Pain (scale 7-10). insulin 2018- Yes [id number] 10U inject 10 [facility] aspart 5-31 Units ity of injection 00:00: under the [place] as 00 skin TID Medical MEALS+HS. Branch Levothyroxi Yes [id number] 112ug Take 1 [facility] ne 112 mcg 5-31 capsule by ity of capsule 00:00: mouth [place] 00 daily. Medical Branch [facility]- Yes [id number] 1{tbl} Take 1 [facility] docusate 5-31 tablet by ity of sodium 00:00: mouth 2 [place] 8.6-50 mg 00 (two) Medical per tablet times Branch daily. HYDROcodone Yes [id number] 1{tbl} Take 1 [facility] -acetaminop 5-31 tablet by ity of hen 5-325 00:00: mouth [place] mg tablet 00 every 6 Medical (six) Branch hours as needed for Pain (scale 7-10). insulin 2018- Yes [id number] 10U inject 10 [facility] aspart 5-31 Units ity of injection 00:00: under the [place] as 00 skin TID Medical MEALS+HS. Branch Levothyroxi Yes [id number] 112ug Take 1 [facility] ne 112 mcg 5-31 capsule by ity of capsule 00:00: mouth [place] 00 daily. Medical Branch insulin Yes [id number] 10U inject 10 [facility] aspart 5-31 Units ity of injection 00:00: under the [place] as 00 skin TID Medical MEALS+HS. Branch Levothyroxi Yes [id number] 112ug Take 1 [facility] ne 112 mcg 5-31 capsule by ity of capsule 00:00: mouth [place] 00 daily. Medical Branch [facility]- Yes [id number] 1{tbl} Take 1 [facility] docusate 5-31 tablet by ity of sodium 00:00: mouth 2 [place] 8.6-50 mg 00 (two) Medical per tablet times Branch daily. HYDROcodone 2018- Yes [id number] 1{tbl} Take 1 [facility] -acetaminop 5-31 tablet by ity of hen 5-325 00:00: mouth [place] mg tablet 00 every 6 Medical (six) Branch hours as needed for Pain (scale 7-10). insulin 2018- Yes [id number] 10U inject 10 [facility] aspart 5-31 Units ity of injection 00:00: under the [place] as 00 skin TID Medical MEALS+HS. Branch Levothyroxi Yes [id number] 112ug Take 1 [facility] ne 112 mcg 5-31 capsule by ity of capsule 00:00: mouth [place] 00 daily. Medical Branch insulin Yes [id number] 10U inject 10 [facility] aspart 5-31 Units ity of injection 00:00: under the [place] as 00 skin TID Medical MEALS+HS. Branch warfarin 5 Yes [id number] Take 1 [facility] mg tablet 5-31 tablet (5 ity o f 00:00: mg) on Friday, Medical Friday, Branch Friday, take 0.5 tablet (2.5mg) on Friday, and Friday Levothyroxi Yes [id number] 112ug Take 1 [facility] ne 112 mcg 5-31 capsule by ity of capsule 00:00: mouth [place] 00 daily. Medical Branch insulin Yes [id number] 10U inject 10 [facility] aspart 5-31 Units ity of injection 00:00: under the [place] as 00 skin TID Medical MEALS+HS. Branch Levothyroxi Yes [id number] 112ug Take 1 [facility] ne 112 mcg 5-31 capsule by ity of capsule 00:00: mouth [place] 00 daily. Medical Branch insulin Yes [id number] 10U inject 10 [facility] aspart 5-31 Units ity of injection 00:00: under the [place] as 00 skin TID Medical MEALS+HS. Branch Levothyroxi Yes [id number] 112ug Take 1 [facility] ne 112 mcg 5-31 capsule by ity of capsule 00:00: mouth [place] 00 daily. Medical Branch insulin 2018- Yes [id number] 10U inject 10 [facility] aspart 5-31 Units ity of injection 00:00: under the [place] as 00 skin TID Medical MEALS+HS. Branch Levothyroxi Yes [id number] 112ug Take 1 [facility] ne 112 mcg 5-31 capsule by ity of capsule 00:00: mouth [place] 00 daily. Medical Branch [facility]- 2018- Yes [id number] 1{tbl} Take 1 [facility] docusate 5-31 tablet by ity of sodium 00:00: mouth 2 [place] 8.6-50 mg 00 (two) Medical per tablet times Branch daily. insulin Yes [id number] 10U inject 10 [facility] aspart 5-31 Units ity of injection 00:00: under the [place] as 00 skin TID Medical MEALS+HS. Branch Levothyroxi Yes [id number] 112ug Take 1 [facility] ne 112 mcg 5-31 capsule by ity of capsule 00:00: mouth [place] 00 daily. Medical Branch HYDROcodone Yes [id number] 1{tbl} Take 1 [facility] -acetaminop 5-31 tablet by ity of hen 5-325 00:00: mouth [place] mg tablet 00 every 6 Medical (six) Branch hours as needed for Pain (scale 7-10). insulin Yes [id number] 10U inject 10 [facility] aspart 5-31 Units ity of injection 00:00: under the [place] as 00 skin TID Medical MEALS+HS. Branch Levothyroxi Yes [id number] 112ug Take 1 [facility] ne 112 mcg 5-31 capsule by ity of capsule 00:00: mouth [place] 00 daily. Medical Branch [facility]- 2022- No [id number] 1{tbl} Take 1 [facility] docusate 5-31 03-20 tablet by ity o f sodium 00:00: 00:00 mouth 2 [place] 8.6-50 mg 00 :00 (two) Medical per tablet times Branch daily. HYDROcodone 2022- No [id number] 1{tbl} Take 1 [facility] -acetaminop 5-31 03-20 tablet by it y of hen 5-325 00:00: 00:00 mouth [place] mg tablet 00 :00 every 6 Medical (six) Branch hours as needed for Pain (scale 7-10). sennos[facility]- 2022- No [id number] 1{tbl} Take 1 [facility] docusate 5-31 03-20 tablet by ity o f sodium 00:00: 00:00 mouth 2 [place] 8.6-50 mg 00 :00 (two) Medical per tablet times Branch daily. HYDROcodone 2022- No [id number] 1{tbl} Take 1 [facility] -acetaminop 5-31 03-20 tablet by it y of hen 5-325 00:00: 00:00 mouth [place] mg tablet 00 :00 every 6 Medical (six) Branch hours as needed for Pain (scale 7-10). carvedilol Yes [place] 6.25 mg = M emoria 6.25 mg 2-03 Fer 1 tab, PO, l oral tablet 15:59: [place] BID, # 1 [place] 00 tab, 0 Refill(s), other acetaminoph Yes [place] 650 mg = 2 Memoria en 325 mg 2-03 Fer tab, PO, l oral tablet 15:59: [place] Q4H, for Lead 00 pain, # 24 tab, 0 Refill(s), other tramadol 50 Yes [place] 50 mg = 1 Memoria mg oral 2-03 Fer tab, PO, l tablet 15:59: [place] Q4H, Pain, Her jin 00 # 1 tab, 0 Refill(s), other meclizine Yes [place] 25 mg = 1 Me moria 25 mg oral 2-03 Fer tab, PO, l tablet 15:59: [place] QID, [place] 00 Dizziness, # 1 tab, 0 Refill(s), [...] Breakfast, # 1 tab, 0 Refill(s), other carvedilol Yes [place] 6.25 mg = M emoria 6.25 mg 2-03 Fer 1 tab, PO, l oral tablet 15:59: [place] BID, # 1 [place] 00 tab, 0 Refill(s), other acetaminoph Yes [place] 650 mg = 2 [facility] en 325 mg 2-03 Fer tab, PO, l oral tablet 15:59: [place] Q4H, for Lead 00 pain, # 24 tab, 0 Refill(s), other tramadol 50 Yes [place] 50 mg = 1 [facility] mg oral 2-03 Fer tab, PO, l tablet 15:59: [place] Q4H, Pain, Her jin 00 # 1 tab, 0 Refill(s), other meclizine Yes [place] 25 mg = 1 Me moria 25 mg oral 2-03 Fer tab, PO, l tablet 15:59: [place] QID, [place] 00 Dizziness, # 1 tab, 0 Refill(s), [...] Breakfast, # 1 tab, 0 Refill(s), other carvedilol Yes [place] 6.25 mg = M emoria 6.25 mg 2-03 Fer 1 tab, PO, l oral tablet 15:59: [place] BID, # 1 Lead 00 tab, 0 Refill(s), other acetaminoph Yes [place] 650 mg = 2 [facility] en 325 mg 2-03 Fer tab, PO, l oral tablet 15:59: [place] Q4H, for [place] 00 pain, # 24 tab, 0 Refill(s), other tramadol 50 Yes [place] 50 mg = 1 [facility] mg oral 2-03 Fer tab, PO, l tablet 15:59: [place] Q4H, Pain, Her jin 00 # 1 tab, 0 Refill(s), other meclizine Yes [place] 25 mg = 1 Me moria 25 mg oral 2-03 Fer tab, PO, l tablet 15:59: [place] QID, Lead 00 Dizziness, # 1 tab, 0 Refill(s), [...] Breakfast, # 1 tab, 0 Refill(s), other carvedilol Yes [place] 6.25 mg = M emoria 6.25 mg 2-03 Fer 1 tab, PO, l oral tablet 15:59: [place] BID, # 1 [place] 00 tab, 0 Refill(s), other acetaminoph Yes [place] 650 mg = 2 [facility] en 325 mg 2-03 Fer tab, PO, l oral tablet 15:59: [place] Q4H, for Lead 00 pain, # 24 tab, 0 Refill(s), other tramadol 50 Yes [place] 50 mg = 1 [facility] mg oral 2-03 Fer tab, PO, l tablet 15:59: [place] Q4H, Pain, Her jin 00 # 1 tab, 0 Refill(s), other meclizine Yes [place] 25 mg = 1 Me moria 25 mg oral 2-03 Fer tab, PO, l tablet 15:59: [place] QID, Lead 00 Dizziness, # 1 tab, 0 Refill(s), [...] Breakfast, # 1 tab, 0 Refill(s), other carvedilol Yes [place] 6.25 mg = M emoria 6.25 mg 2-03 Fer 1 tab, PO, l oral tablet 15:59: [place] BID, # 1 [place] 00 tab, 0 Refill(s), other acetaminoph Yes [place] 650 mg = 2 Memoria en 325 mg 2-03 Fer tab, PO, l oral tablet 15:59: [place] Q4H, for Lead 00 pain, # 24 tab, 0 Refill(s), other tramadol 50 Yes [place] 50 mg = 1 [facility] mg oral 2-03 Fer tab, PO, l tablet 15:59: [place] Q4H, Pain, Her jin 00 # 1 tab, 0 Refill(s), other meclizine Yes [place] 25 mg = 1 Me moria 25 mg oral 2-03 Fer tab, PO, l tablet 15:59: [place] QID, Lead 00 Dizziness, # 1 tab, 0 Refill(s), [...] Breakfast, # 1 tab, 0 Refill(s), other carvedilol Yes [place] 6.25 mg = M emoria 6.25 mg 2-03 Fer 1 tab, PO, l oral tablet 15:59: [place] BID, # 1 [place] 00 tab, 0 Refill(s), other acetaminoph Yes [place] 650 mg = 2 Mem[facility] en 325 mg 2-03 Fer tab, PO, l oral tablet 15:59: [place] Q4H, for Lead 00 pain, # 24 tab, 0 Refill(s), other tramadol 50 Yes [place] 50 mg = 1 [facility] mg oral 2-03 Fer tab, PO, l tablet 15:59: [place] Q4H, Pain, Her jin 00 # 1 tab, 0 Refill(s), other meclizine Yes [place] 25 mg = 1 Me moria 25 mg oral 2-03 Fer tab, PO, l tablet 15:59: [place] QID, Lead 00 Dizziness, # 1 tab, 0 Refill(s), [...] Breakfast, # 1 tab, 0 Refill(s), other carvedilol Yes [place] 6.25 mg = M emoria 6.25 mg 2-03 Fer 1 tab, PO, l oral tablet 15:59: [place] BID, # 1 [place] 00 tab, 0 Refill(s), other acetaminoph Yes [place] 650 mg = 2 Mem[facility] en 325 mg 2-03 Fer tab, PO, l oral tablet 15:59: [place] Q4H, for Vinnie 00 pain, # 24 tab, 0 Refill(s), other carvedilol Yes [place] 6.25 mg = M emoria 6.25 mg 2-03 Fer 1 tab, PO, l oral tablet 15:59: [place] BID, # 1 [place] 00 tab, 0 Refill(s), other acetaminoph Yes [place] 650 mg = 2 Memoria en 325 mg 2-03 Fer tab, PO, l oral tablet 15:59: [place] Q4H, for [place]innie 00 pain, # 24 tab, 0 Refill(s), other tramadol 50 Yes [place] 50 mg = 1 [facility] mg oral 2-03 Fer tab, PO, l tablet 15:59: [place] Q4H, Pain, Her jin 00 # 1 tab, 0 Refill(s), other tramadol 50 Yes [place] 50 mg = 1 [facility] mg oral 2-03 Fer tab, PO, l tablet 15:59: [place] Q4H, Pain, Her jin 00 # 1 tab, 0 Refill(s), other meclizine Yes [place] 25 mg = 1 Me moria 25 mg oral 2-03 Fer tab, PO, l tablet 15:59: [place] QID, Lead 00 Dizziness, # 1 tab, 0 Refill(s), [...] 2-03 Fer tab, PO, l tablet 15:59: [place] Before [place] 00 Breakfast, # 1 tab, 0 Refill(s), other meclizine Yes [place] 25 mg = 1 Me moria 25 mg oral 2-03 Fer tab, PO, l tablet 15:59: [place] QID, Lead 00 Dizziness, # 1 tab, 0 Refill(s), [...] tab, PO, l tablet 15:59: [place] Before [place] 00 Breakfast, # 1 tab, 0 Refill(s), other carvedilol Yes [place] 6.25 mg = M emoria 6.25 mg 2-03 Fer 1 tab, PO, l oral tablet 15:59: [place] BID, # 1 [place] 00 tab, 0 Refill(s), other acetaminoph Yes [place] 650 mg = 2 Mem[facility] en 325 mg 2-03 Fer tab, PO, l oral tablet 15:59: [place] Q4H, for Lead 00 pain, # 24 tab, 0 Refill(s), other tramadol 50 Yes [place] 50 mg = 1 [facility] mg oral 2-03 Fer tab, PO, l tablet 15:59: [place] Q4H, Pain, Her jin 00 # 1 tab, 0 Refill(s), other meclizine Yes [place] 25 mg = 1 Me moria 25 mg oral 2-03 Fer tab, PO, l tablet 15:59: [place] QID, [place] 00 Dizziness, # 1 tab, 0 Refill(s), [...] Breakfast, # 1 tab, 0 Refill(s), other carvedilol Yes [place] 6.25 mg = M emoria 6.25 mg 2-03 Fer 1 tab, PO, l oral tablet 15:59: [place] BID, # 1 [place] 00 tab, 0 Refill(s), other acetaminoph Yes [place] 650 mg = 2 Mem[facility] en 325 mg 2-03 Fer tab, PO, l oral tablet 15:59: [place] Q4H, for Vinnie 00 pain, # 24 tab, 0 Refill(s), other tramadol 50 Yes [place] 50 mg = 1 [facility] mg oral 2-03 Fer tab, PO, l tablet 15:59: [place] Q4H, Pain, Her jin 00 # 1 tab, 0 Refill(s), other meclizine Yes [place] 25 mg = 1 Me moria 25 mg oral 2-03 Fer tab, PO, l tablet 15:59: [place] QID, [place] 00 Dizziness, # 1 tab, 0 Refill(s), other loperamide Yes [place] 1 mg = 5 Me moria 1 mg/5 mL 2-03 Fer mL, PO, l oral liquid 15:59: [place] Q6H, as H ermann 00 needed for loose stool, # 5 mL, 0 Refill(s), other carvedilol Yes [place] 6.25 mg = M emoria 6.25 mg 2-03 Fer 1 tab, PO, l oral tablet 15:59: [place] BID, # 1 [place] 00 tab, 0 Refill(s), other acetaminoph Yes [place] 650 mg = 2 Mem[facility] en 325 mg 2-03 Fer tab, PO, l oral tablet 15:59: [place] Q4H, for [place]innie 00 pain, # 24 tab, 0 Refill(s), other tramadol 50 Yes [place] 50 mg = 1 [facility] mg oral 2-03 Fer tab, PO, l tablet 15:59: [place] Q4H, Pain, Her jin 00 # 1 tab, 0 Refill(s), other meclizine Yes [place] 25 mg = 1 Me moria 25 mg oral 2-03 Fer tab, PO, l tablet 15:59: [place] QID, [place] 00 Dizziness, # 1 tab, 0 Refill(s), [...] # 1 tab, 0 Refill(s), other ferrous Yes [place] 325 mg = 1 Mem oria sulfate [...] tab, PO, l tablet 15:59: [place] Before [place] 00 Breakfast, # 1 tab, 0 Refill(s), other carvedilol Yes [place] 6.25 mg = M emoria 6.25 mg 2-03 Fer 1 tab, PO, l oral tablet 15:59: [place] BID, # 1 [place] 00 tab, 0 Refill(s), other acetaminoph Yes [place] 650 mg = 2 Memoria en 325 mg 2-03 Fer tab, PO, l oral tablet 15:59: [place] Q4H, for Vinnie 00 pain, # 24 tab, 0 Refill(s), other tramadol 50 Yes [place] 50 mg = 1 Mem[facility] mg oral 2-03 Fer tab, PO, l tablet 15:59: [place] Q4H, Pain, Her jin 00 # 1 tab, 0 Refill(s), other meclizine Yes [place] 25 mg = 1 Me moria 25 mg oral 2-03 Fer tab, PO, l tablet 15:59: [place] QID, Lead 00 Dizziness, # 1 tab, 0 Refill(s), [...] tab, PO, l tablet 15:59: [place] Before Lead 00 Breakfast, # 1 tab, 0 Refill(s), other carvedilol Yes [place] 6.25 mg = M emoria 6.25 mg 2-03 Fer 1 tab, PO, l oral tablet 15:59: [place] BID, # 1 [place] 00 tab, 0 Refill(s), other acetaminoph Yes [place] 650 mg = 2 Memoria en 325 mg 2-03 Fer tab, PO, l oral tablet 15:59: [place] Q4H, for Vinnie 00 pain, # 24 tab, 0 Refill(s), other tramadol 50 Yes [place] 50 mg = 1 Mem[facility] mg oral 2-03 Fer tab, PO, l tablet 15:59: [place] Q4H, Pain, Her jin 00 # 1 tab, 0 Refill(s), other meclizine Yes [place] 25 mg = 1 Me moria 25 mg oral 2-03 Fer tab, PO, l tablet 15:59: [place] QID, Lead 00 Dizziness, # 1 tab, 0 Refill(s), [...] Breakfast, # 1 tab, 0 Refill(s), other carvedilol Yes [place] 6.25 mg = M emoria 6.25 mg 2-03 Fer 1 tab, PO, l oral tablet 15:59: [place] BID, # 1 [place] 00 tab, 0 Refill(s), other acetaminoph Yes [place] 650 mg = 2 Memoria en 325 mg 2-03 Fer tab, PO, l oral tablet 15:59: [place] Q4H, for Vinnie 00 pain, # 24 tab, 0 Refill(s), other tramadol 50 Yes [place] 50 mg = 1 [facility] mg oral 2-03 Fer tab, PO, l tablet 15:59: [place] Q4H, Pain, Her jin 00 # 1 tab, 0 Refill(s), other meclizine Yes [place] 25 mg = 1 Me moria 25 mg oral 2-03 Fer tab, PO, l tablet 15:59: [place] QID, [place] 00 Dizziness, # 1 tab, 0 Refill(s), [...] Breakfast, # 1 tab, 0 Refill(s), other carvedilol Yes [place] 6.25 mg = M emoria 6.25 mg 2-03 Fer 1 tab, PO, l oral tablet 15:59: [place] BID, # 1 [place] 00 tab, 0 Refill(s), other acetaminoph Yes [place] 650 mg = 2 Memoria en 325 mg 2-03 Fer tab, PO, l oral tablet 15:59: [place] Q4H, for Lead 00 pain, # 24 tab, 0 Refill(s), other tramadol 50 Yes [place] 50 mg = 1 Mem[facility] mg oral 2-03 Fer tab, PO, l tablet 15:59: [place] Q4H, Pain, Her jin 00 # 1 tab, 0 Refill(s), other meclizine Yes [place] 25 mg = 1 Me moria 25 mg oral 2-03 Fer tab, PO, l tablet 15:59: [place] QID, [place]innie 00 Dizziness, # 1 tab, 0 Refill(s), [...] Breakfast, # 1 tab, 0 Refill(s), other carvedilol Yes [place] 6.25 mg = M emoria 6.25 mg 2-03 Fer 1 tab, PO, l oral tablet 15:59: [place] BID, # 1 Lead 00 tab, 0 Refill(s), other acetaminoph Yes [place] 650 mg = 2 Memoria en 325 mg 2-03 Fer tab, PO, l oral tablet 15:59: [place] Q4H, for Vinnie 00 pain, # 24 tab, 0 Refill(s), other tramadol 50 Yes [place] 50 mg = 1 [facility] mg oral 2-03 Fer tab, PO, l tablet 15:59: [place] Q4H, Pain, Her jin 00 # 1 tab, 0 Refill(s), other meclizine Yes [place] 25 mg = 1 Me moria 25 mg oral 2-03 Fer tab, PO, l tablet 15:59: [place] QID, [place] 00 Dizziness, # 1 tab, 0 Refill(s), [...] tab, PO, l tablet 15:59: [place] Before Lead 00 Breakfast, # 1 tab, 0 Refill(s), other carvedilol Yes [place] 6.25 mg = M emoria 6.25 mg 2-03 Fer 1 tab, PO, l oral tablet 15:59: [place] BID, # 1 Lead 00 tab, 0 Refill(s), other acetaminoph Yes Howard 650 mg = 2 Memoria en 325 mg 2-03 Fer tab, PO, l oral tablet 15:59: [place] Q4H, for Vinnie 00 pain, # 24 tab, 0 Refill(s), other tramadol 50 Yes Howard 50 mg = 1 Memoria mg oral 2-03 Fer tab, PO, l tablet 15:59: Sebastian Q4H, Pain, Her jin 00 # 1 tab, 0 Refill(s), other meclizine Yes Howard 25 mg = 1 Me moria 25 mg oral 2-03 Fer tab, PO, l tablet 15:59: Sebastian QID, Lead 00 Dizziness, # 1 tab, 0 Refill(s), [...] tab, PO, l tablet 15:59: Sebastian Before Lead 00 Breakfast, # 1 tab, 0 Refill(s), other carvedilol Yes Howard 6.25 mg = M emoria 6.25 mg 2-03 Fer 1 tab, PO, l oral tablet 15:59: Sebastian BID, # 1 Vinnie 00 tab, 0 Refill(s), other acetaminoph Yes Howard 650 mg = 2 Memoria en 325 mg 2-03 Fer tab, PO, l oral tablet 15:59: Sebastian Q4H, for Lead 00 pain, # 24 tab, 0 Refill(s), other tramadol 50 Yes Howard 50 mg = 1 Memoria mg oral 2-03 Fer tab, PO, l tablet 15:59: Sebastian Q4H, Pain, Her jin 00 # 1 tab, 0 Refill(s), other meclizine Yes Howard 25 mg = 1 Me moria 25 mg oral 2-03 Fer tab, PO, l tablet 15:59: Sebastian QID, Vinnie 00 Dizziness, # 1 tab, 0 Refill(s), [...] Breakfast, # 1 tab, 0 Refill(s), other carvedilol Yes Howard 6.25 mg = M emoria 6.25 mg 2-03 Fer 1 tab, PO, l oral tablet 15:59: Sebastian BID, # 1 Vinnie 00 tab, 0 Refill(s), other acetaminoph Yes Howard 650 mg = 2 Memoria en 325 mg 2-03 Fer tab, PO, l oral tablet 15:59: Sebastian Q4H, for Lead 00 pain, # 24 tab, 0 Refill(s), other tramadol 50 Yes Howard 50 mg = 1 Memoria mg oral 2-03 Fer tab, PO, l tablet 15:59: Sebastian Q4H, Pain, Her jin 00 # 1 tab, 0 Refill(s), other meclizine Yes Howard 25 mg = 1 Me moria 25 mg oral 2-03 Fer tab, PO, l tablet 15:59: Sebastian QID, Vinnie 00 Dizziness, # 1 tab, 0 Refill(s), [...] Breakfast, # 1 tab, 0 Refill(s), other carvedilol Yes Howard 6.25 mg = M emoria 6.25 mg 2-03 Fer 1 tab, PO, l oral tablet 15:59: Sebastian BID, # 1 Vinnie 00 tab, 0 Refill(s), other acetaminoph Yes Howard 650 mg = 2 Memoria en 325 mg 2-03 Fer tab, PO, l oral tablet 15:59: Sebastian Q4H, for Lead 00 pain, # 24 tab, 0 Refill(s), other tramadol 50 Yes Howard 50 mg = 1 Memoria mg oral 2-03 Fer tab, PO, l tablet 15:59: Sebastian Q4H, Pain, Her jin 00 # 1 tab, 0 Refill(s), other meclizine Yes Howard 25 mg = 1 Me moria 25 mg oral 2-03 Fer tab, PO, l tablet 15:59: Sebastian QID, Lead 00 Dizziness, # 1 tab, 0 Refill(s), [...] Breakfast, # 1 tab, 0 Refill(s), other carvedilol Yes Howard 6.25 mg = M emoria 6.25 mg 2-03 Fer 1 tab, PO, l oral tablet 15:59: Sebastian BID, # 1 Lead 00 tab, 0 Refill(s), other acetaminoph Yes Howard 650 mg = 2 Memoria en 325 mg 2-03 Fer tab, PO, l oral tablet 15:59: Sebastian Q4H, for Lead 00 pain, # 24 tab, 0 Refill(s), other tramadol 50 Yes Howard 50 mg = 1 Memoria mg oral 2-03 Fer tab, PO, l tablet 15:59: Sebastian Q4H, Pain, Her jin 00 # 1 tab, 0 Refill(s), other meclizine Yes Howard 25 mg = 1 Me moria 25 mg oral 2-03 Fer tab, PO, l tablet 15:59: Sebastian QID, Lead 00 Dizziness, # 1 tab, 0 Refill(s), other loperamide Yes Howard 1 mg = 5 Me moria 1 mg/5 mL 2-03 Fer mL, PO, l oral liquid 15:59: Sebastian Q6H, as H ermann 00 needed for loose stool, # 5 mL, 0 Refill(s), other ferrous Yes Howadr 325 mg = 1 Mem oria sulfate [...] tab, PO, l tablet 15:59: Sebastian Before Lead 00 Breakfast, # 1 tab, 0 Refill(s), other carvedilol Yes Howard 6.25 mg = M emoria 6.25 mg 2-03 Fer 1 tab, PO, l oral tablet 15:59: Sebastian BID, # 1 Vinnie 00 tab, 0 Refill(s), other acetaminoph Yes Howard 650 mg = 2 Memoria en 325 mg 2-03 Fer tab, PO, l oral tablet 15:59: Sebastian Q4H, for Lead 00 pain, # 24 tab, 0 Refill(s), other carvedilol Yes Howard 6.25 mg = M emoria 6.25 mg 2-03 Fer 1 tab, PO, l oral tablet 15:59: Sebastian BID, # 1 Vinnie 00 tab, 0 Refill(s), other acetaminoph Yes Howard 650 mg = 2 Memoria en 325 mg 2-03 Fer tab, PO, l oral tablet 15:59: Sebastian Q4H, for Lead 00 pain, # 24 tab, 0 Refill(s), other tramadol 50 Yes Howard 50 mg = 1 Memoria mg oral 2-03 Fer tab, PO, l tablet 15:59: Sebastian Q4H, Pain, Her jin 00 # 1 tab, 0 Refill(s), other tramadol 50 Yes Howard 50 mg = 1 Memoria mg oral 2-03 Fer tab, PO, l tablet 15:59: Sebastian Q4H, Pain, Her jin 00 # 1 tab, 0 Refill(s), other meclizine Yes Howard 25 mg = 1 Me moria 25 mg oral 2-03 Fer tab, PO, l tablet 15:59: Sebastian QID, Vinnie 00 Dizziness, # 1 tab, 0 Refill(s), [...] cap, 0 Refill(s), other glipiZIDE 5 Yes Hwoard 5 mg = 1 M emoria mg oral 2-03 Fer tab, PO, l tablet 15:59: Sebastian Before Vinnie 00 Breakfast, # 1 tab, 0 Refill(s), other meclizine Yes Howard 25 mg = 1 Me moria 25 mg oral 2-03 Fer tab, PO, l tablet 15:59: Sebastian QID, Vinnie 00 Dizziness, # 1 tab, 0 Refill(s), [...] tab, PO, l tablet 15:59: Sebastian Before Lead 00 Breakfast, # 1 tab, 0 Refill(s), other carvedilol Yes Howard 6.25 mg = M emoria 6.25 mg 2-03 Fer 1 tab, PO, l oral tablet 15:59: Sebastian BID, # 1 Lead 00 tab, 0 Refill(s), other acetaminoph Yes Howard 650 mg = 2 Memoria en 325 mg 2-03 Fer tab, PO, l oral tablet 15:59: Sebastian Q4H, for Lead 00 pain, # 24 tab, 0 Refill(s), other tramadol 50 Yes Howard 50 mg = 1 Memoria mg oral 2-03 Fer tab, PO, l tablet 15:59: Sebastian Q4H, Pain, Her jin 00 # 1 tab, 0 Refill(s), other meclizine Yes Howard 25 mg = 1 Me moria 25 mg oral 2-03 Fer tab, PO, l tablet 15:59: Sebastian QID, Vinnie 00 Dizziness, # 1 tab, 0 Refill(s), [...] Breakfast, # 1 tab, 0 Refill(s), other carvedilol Yes Howard 6.25 mg = M emoria 6.25 mg 2-03 Fer 1 tab, PO, l oral tablet 15:59: Sebastian BID, # 1 Vinnie 00 tab, 0 Refill(s), other acetaminoph Yes Howard 650 mg = 2 Memoria en 325 mg 2-03 Fer tab, PO, l oral tablet 15:59: Sebastian Q4H, for Vinnie 00 pain, # 24 tab, 0 Refill(s), other tramadol 50 Yes Howard 50 mg = 1 Memoria mg oral 2-03 Fer tab, PO, l tablet 15:59: Sebastian Q4H, Pain, Her jin 00 # 1 tab, 0 Refill(s), other meclizine Yes Howard 25 mg = 1 Me moria 25 mg oral 2-03 Efr tab, PO, l tablet 15:59: Sebastian QID, Vinnie 00 Dizziness, # 1 tab, 0 Refill(s), [...] tab, PO, l tablet 15:59: Sebastian Before Lead 00 Breakfast, # 1 tab, 0 Refill(s), other carvedilol Yes Howard 6.25 mg = M emoria 6.25 mg 2-03 Fer 1 tab, PO, l oral tablet 15:59: Sebastian BID, # 1 Vinnie 00 tab, 0 Refill(s), other acetaminoph Yes Howard 650 mg = 2 Memoria en 325 mg 2-03 Fer tab, PO, l oral tablet 15:59: Sebastian Q4H, for Lead 00 pain, # 24 tab, 0 Refill(s), other tramadol 50 Yes Howard 50 mg = 1 Memoria mg oral 2-03 Fer tab, PO, l tablet 15:59: Sebastian Q4H, Pain, Her jin 00 # 1 tab, 0 Refill(s), other meclizine Yes Howard 25 mg = 1 Me moria 25 mg oral 2-03 Fer tab, PO, l tablet 15:59: Sebastian QID, Vinnie 00 Dizziness, # 1 tab, 0 Refill(s), [...] tab, PO, l tablet 15:59: Sebastian Before Lead 00 Breakfast, # 1 tab, 0 Refill(s), other carvedilol Yes Howard 6.25 mg = M emoria 6.25 mg 2-03 Fer 1 tab, PO, l oral tablet 15:59: Sebastian BID, # 1 Lead 00 tab, 0 Refill(s), other acetaminoph Yes Howard 650 mg = 2 Memoria en 325 mg 2-03 Fer tab, PO, l oral tablet 15:59: Sebastian Q4H, for Vinnie 00 pain, # 24 tab, 0 Refill(s), other tramadol 50 Yes Howard 50 mg = 1 Memoria mg oral 2-03 Fer tab, PO, l tablet 15:59: Sebastian Q4H, Pain, Her jin 00 # 1 tab, 0 Refill(s), other meclizine Yes Howard 25 mg = 1 Me moria 25 mg oral 2-03 Fer tab, PO, l tablet 15:59: Sebastian QID, Lead 00 Dizziness, # 1 tab, 0 Refill(s), [...] 17:00:00Gi ve with food. "Do Not Crush" ferrous No Howard 325 mg, 1 Semaj shashi sulfate 2-03 Fer tab, l 15:00: Sebastian Route: PO, Salma nn 00 Drug form: ECTAB, BID, Dosing Weight 75.909, kg, Start date: 10/18/13 9:00:00, Duration: 30 day, Stop date: 11/16/13 17:00:00Gi ve with food. "Do Not Crush" ferrous No Howard 325 mg, 1 Semaj shashi sulfate 2-03 Fer tab, l 15:00: Sebastian Route: PO, Salma nn 00 Drug form: ECTAB, BID, Dosing Weight 75.909, kg, Start date: 10/18/13 9:00:00, Duration: 30 day, Stop date: 11/16/13 17:00:00Gi ve with food. "Do Not Crush" ferrous No Howard 325 mg, 1 Semaj shashi sulfate 2-03 Fer tab, l 15:00: Sebastian Route: PO, Salma nn 00 Drug form: ECTAB, BID, Dosing Weight 75.909, kg, Start date: 10/18/13 9:00:00, Duration: 30 day, Stop date: 11/16/13 17:00:00Gi ve with food. "Do Not Crush" ferrous 2014-0 No Howard 325 mg, 1 Semaj shashi sulfate 2-03 Fer tab, l 15:00: Sebastian Route: PO, Salma nn Drug form: ECTAB, BID, Dosing Weight 75.909, kg, Start date: 10/18/13 9:00:00, Duration: 30 day, Stop date: 11/16/13 17:00:00Gi ve with food. "Do Not Crush" ferrous 2014-0 No Howard 325 mg, 1 Semaj shashi sulfate 2-03 Fer tab, l 15:00: Sebastian Route: PO, Salma nn 00 Drug form: ECTAB, BID, Dosing Weight 75.909, kg, Start date: 10/18/13 9:00:00, Duration: 30 day, Stop date: 11/16/13 17:00:00Gi ve with food. "Do Not Crush" ferrous 2014-0 No Howard 325 mg, 1 Semaj shashi sulfate 2-03 Fer tab, l 15:00: Sebastian Route: PO, Salma nn 00 Drug form: ECTAB, BID, Dosing Weight 75.909, kg, Start date: 10/18/13 9:00:00, Duration: 30 day, Stop date: 11/16/13 17:00:00Gi ve with food. "Do Not Crush" ferrous 2014-0 No Howard 325 mg, 1 Semaj shashi sulfate 2-03 Fer tab, l 15:00: Sebastian Route: PO, Salma nn 00 Drug form: ECTAB, BID, Dosing Weight 75.909, kg, Start date: 10/18/13 9:00:00, Duration: 30 day, Stop date: 11/16/13 17:00:00Gi ve with food. "Do Not Crush" ferrous 2014-0 No Howard 325 mg, 1 Semaj shashi sulfate 2-03 Fer tab, l 15:00: Sebastian Route: PO, Salma nn 00 Drug form: ECTAB, BID, Dosing Weight 75.909, kg, Start date: 10/18/13 9:00:00, Duration: 30 day, Stop date: 11/16/13 17:00:00Gi ve with food. "Do Not Crush" ferrous 2014-0 No Howard 325 mg, 1 Semaj shashi sulfate 2-03 Fer tab, l 15:00: Sebastian Route: PO, Salma nn 00 Drug form: ECTAB, BID, Dosing Weight 75.909, kg, Start date: 10/18/13 9:00:00, Duration: 30 day, Stop date: 11/16/13 17:00:00Gi ve with food. "Do Not Crush" ferrous 2014-0 No Howard 325 mg, 1 Semaj shashi sulfate 2-03 Fer tab, l 15:00: Sebatsian Route: PO, Salma nn 00 Drug form: ECTAB, BID, Dosing Weight 75.909, kg, Start date: 10/18/13 9:00:00, Duration: 30 day, Stop date: 11/16/13 17:00:00Gi ve with food. "Do Not Crush" ferrous 2014-0 No Howard 325 mg, 1 Semaj shashi sulfate 2-03 Fer tab, l 15:00: Sebastian Route: PO, Salma nn 00 Drug form: ECTAB, BID, Dosing Weight 75.909, kg, Start date: 10/18/13 9:00:00, Duration: 30 day, Stop date: 11/16/13 17:00:00Gi ve with food. "Do Not Crush" ferrous 2014-0 No Howard 325 mg, 1 Semaj shashi sulfate 2-03 Fer tab, l 15:00: Sebastian Route: PO, Salma nn 00 Drug form: ECTAB, BID, Dosing Weight 75.909, kg, Start date: 10/18/13 9:00:00, Duration: 30 day, Stop date: 11/16/13 17:00:00Gi ve with food. "Do Not Crush" ferrous 2014-0 No Howard 325 mg, 1 Semaj shashi sulfate 2-03 Fer tab, l 15:00: Sebastian Route: PO, Salma nn 00 Drug form: ECTAB, BID, Dosing Weight 75.909, kg, Start date: 10/18/13 9:00:00, Duration: 30 day, Stop date: 11/16/13 17:00:00Gi ve with food. "Do Not Crush" ferrous 2014-0 No Howard 325 mg, 1 Semaj shashi sulfate 2-03 Fer tab, l 15:00: Sebastian Route: PO, Salma nn 00 Drug form: ECTAB, BID, Dosing Weight 75.909, kg, Start date: 10/18/13 9:00:00, Duration: 30 day, Stop date: 11/16/13 17:00:00Gi ve with food. "Do Not Crush" ferrous 2014-0 No Howard 325 mg, 1 Semaj shashi sulfate 2-03 Fer tab, l 15:00: Sebastian Route: PO, Salma nn 00 Drug form: ECTAB, BID, Dosing Weight 75.909, kg, Start date: 10/18/13 9:00:00, Duration: 30 day, Stop date: 11/16/13 17:00:00Gi ve with food. "Do Not Crush" ferrous 2014-0 No Howard 325 mg, 1 Semaj shashi sulfate 2-03 Fer tab, l 15:00: Sebastian Route: PO, Salma nn 00 Drug form: ECTAB, BID, Dosing Weight 75.909, kg, Start date: 10/18/13 9:00:00, Duration: 30 day, Stop date: 11/16/13 17:00:00Gi ve with food. "Do Not Crush" ferrous 2014-0 No Howard 325 mg, 1 Semaj shashi sulfate 2-03 Fer tab, l 15:00: Sebastian Route: PO, Salma nn 00 Drug form: ECTAB, BID, Dosing Weight 75.909, kg, Start date: 10/18/13 9:00:00, Duration: 30 day, Stop date: 11/16/13 17:00:00Gi ve with food. "Do Not Crush" ferrous 2014-0 No Howard 325 mg, 1 Semaj shashi sulfate 2-03 Fer tab, l 15:00: Sebastian Route: PO, Salma nn 00 Drug form: ECTAB, BID, Dosing Weight 75.909, kg, Start date: 10/18/13 9:00:00, Duration: 30 day, Stop date: 11/16/13 17:00:00Gi ve with food. "Do Not Crush" ferrous 2014-0 No Howard 325 mg, 1 Semaj shashi sulfate 2-03 Fer tab, l 15:00: Sebastian Route: PO, Salma nn 00 Drug form: ECTAB, BID, Dosing Weight 75.909, kg, Start date: 10/18/13 9:00:00, Duration: 30 day, Stop date: 11/16/13 17:00:00Gi ve with food. "Do Not Crush" ferrous 2013-0 No Howard 325 mg, 1 Semaj shashi sulfate 2-03 Fer tab, l 15:00: Sebastian Route: PO, Salma nn 00 Drug form: ECTAB, BID, Dosing Weight 75.909, kg, Start date: 10/18/13 9:00:00, Duration: 30 day, Stop date: 11/16/13 17:00:00Gi ve with food. "Do Not Crush" ferrous 2013-0 No Howard 325 mg, 1 Semaj shashi sulfate 2-03 Fer tab, l 15:00: Sebastian Route: PO, Salma nn 00 Drug form: ECTAB, BID, Dosing Weight 75.909, kg, Start date: 10/18/13 9:00:00, Duration: 30 day, Stop date: 11/16/13 17:00:00Gi ve with food. "Do Not Crush" ferrous 2013-0 No Howrad 325 mg, 1 Semaj shashi sulfate 2-03 Fer tab, l 15:00: Sebastian Route: PO, Salma nn 00 Drug form: ECTAB, BID, Dosing Weight 75.909, kg, Start date: 10/18/13 9:00:00, Duration: 30 day, Stop date: 11/16/13 17:00:00Gi ve with food. "Do Not Crush" ferrous 2013-0 No Howard 325 mg, 1 Semaj shashi sulfate 2-03 Fer tab, l 15:00: Sebastian Route: PO, Salma nn 00 Drug form: ECTAB, BID, Dosing Weight 75.909, kg, Start date: 10/18/13 9:00:00, Duration: 30 day, Stop date: 11/16/13 17:00:00Gi ve with food. "Do Not Crush" ferrous 2014-0 No Howard 325 mg, 1 Semaj shashi sulfate 2-03 Fer tab, l 15:00: Sebastian Route: PO, Salma nn 00 Drug form: ECTAB, BID, Dosing Weight 75.909, kg, Start date: 10/18/13 9:00:00, Duration: 30 day, Stop date: 11/16/13 17:00:00Gi ve with food. "Do Not Crush" ferrous 2013-0 No Howard 325 mg, 1 Semaj shashi sulfate 2-03 Fer tab, l 15:00: Sebastian Route: PO, Salma nn 00 Drug form: ECTAB, BID, Dosing Weight 75.909, kg, Start date: 10/18/13 9:00:00, Duration: 30 day, Stop date: 11/16/13 17:00:00Gi ve with food. "Do Not Crush" ferrous 2013-0 No Howard 325 mg, 1 Semaj shashi sulfate 2-03 Fer tab, l 15:00: Sebastian Route: PO, Samla nn 00 Drug form: ECTAB, BID, Dosing Weight 75.909, kg, Start date: 10/18/13 9:00:00, Duration: 30 day, Stop date: 11/16/13 17:00:00Gi ve with food. "Do Not Crush" warfarin 2013-0 No Howard 7.5 mg, 1 Mem oria 2-02 Fer tab, l 23:00: Sebastian Route: PO, Salma nn 00 Drug form: TAB, Q5PM, Dosing Weight 75.909, kg, Start date: 10/17/13 17:00:00, Duration: 1 doses or times, Stop date: 10/17/13 17:00:00Nu rse to ensure documentat ion of patient education per anticoagul ation policy. Avoid large intake of vitamin-K containing foods diet. (Same As: Coumadin) warfarin 2013-0 No Howard 7.5 mg, 1 Mem oria [...] No Howard 7.5 mg, 1 Mem oria 2- Fer tab, l 23:00: Sebastian Route: PO, Salma nn 00 Drug form: TAB, Q5PM, Dosing Weight 75.909, kg, Start date: 10/17/13 17:00:00, Duration: 1 doses or times, Stop date: 10/17/13 17:00:00Nu rse to ensure documentat ion of patient education per anticoagul ation policy. Avoid large intake of vitamin-K containing foods diet. (Same As: Coumadin) warfarin No Howard 7.5 mg, 1 Mem oria 2- Fer tab, l 23:00: Sebastian Route: PO, Salma nn 00 Drug form: TAB, Q5PM, Dosing Weight 75.909, kg, Start date: 10/17/13 17:00:00, Duration: 1 doses or times, Stop date: 10/17/13 17:00:00Nu rse to ensure documentat ion of patient education per anticoagul ation policy. Avoid large intake of vitamin-K containing foods diet. (Same As: Coumadin) warfarin No Howard 7.5 mg, 1 Mem oria 2- Fer tab, l 23:00: Sebastian Route: PO, [...] No Howard 7.5 mg, 1 Mem oria 2- Fer tab, l 23:00: Sebastian Route: PO, Salma nn 00 Drug form: TAB, Q5PM, Dosing Weight 75.909, kg, Start date: 10/17/13 17:00:00, Duration: 1 doses or times, Stop date: 10/17/13 17:00:00Nu rse to ensure documentat ion of patient education per anticoagul ation policy. Avoid large intake of vitamin-K containing foods diet. (Same As: Coumadin) warfarin No Howard 7.5 mg, 1 Mem oria 2- Fer tab, l 23:00: Sebastian Route: PO, [...] No Howard 7.5 mg, 1 Mem oria 2 Fer tab, l 23:00: Sebastian Route: PO, [...] ensure documentat ion of patient education per [facility] policy. Avoid large intake of vitamin-K containing [...] date: 11/16/13 10:24:00(S sharron as: Antivert) meclizine 0 No Howard 25 mg, 1 Mem oria 2-02 Fer tab, l 16:25: Sebastian Route: PO, Salma nn 00 Drug form: TAB, QID, Dosing Weight 75.909, kg, PRN Dizziness, Start date: 10/17/13 10:25:00, Duration: 30 day, Stop date: 11/16/13 10:24:00(S sharron as: Antivert) meclizine 0 No Howard 25 mg, 1 Mem oria 2-02 Fer tab, l 16:25: Sebastian Route: PO, Salma nn 00 Drug form: TAB, QID, Dosing Weight 75.909, kg, PRN Dizziness, Start date: 10/17/13 10:25:00, Duration: 30 day, Stop date: 11/16/13 10:24:00(S sharron as: Antivert) meclizine 2014-0 No Howard 25 mg, 1 Mem oria 2-02 Fer tab, l 16:25: Sebastian Route: PO, Salma nn 00 Drug form: TAB, QID, Dosing Weight 75.909, kg, PRN Dizziness, Start date: 10/17/13 10:25:00, Duration: 30 day, Stop date: 11/16/13 10:24:00(S sharron as: Antivert) meclizine 0 No Howard 25 mg, 1 Mem oria [...] date: 11/16/13 10:24:00(S sharron as: Antivert) meclizine 0 No Howard 25 mg, 1 Mem oria 2-02 Fer tab, l 16:25: Sebastian Route: PO, Salma nn 00 Drug form: TAB, QID, Dosing Weight 75.909, kg, PRN Dizziness, Start date: 10/17/13 10:25:00, Duration: 30 day, Stop date: 11/16/13 10:24:00(S sharron as: Antivert) meclizine 0 No Howard 25 mg, 1 Mem oria 2-02 Fer tab, l 16:25: Sebastian Route: PO, Salma nn 00 Drug form: TAB, QID, Dosing Weight 75.909, kg, PRN Dizziness, Start date: 10/17/13 10:25:00, Duration: 30 day, Stop date: 11/16/13 10:24:00(S sharron as: Antivert) meclizine 2013-0 No Howard 25 mg, 1 Mem oria [...] date: 11/16/13 10:24:00(S sharron as: Antivert) meclizine 0 No Howard 25 mg, 1 Mem oria 2-02 Fer tab, l 16:25: Sebastian Route: PO, Salma nn 00 Drug form: TAB, QID, Dosing Weight 75.909, kg, PRN Dizziness, Start date: 10/17/13 10:25:00, Duration: 30 day, Stop date: 11/16/13 10:24:00(S sharron as: Antivert) meclizine 2013-0 No Howard 25 mg, 1 Mem oria 2-02 Fer tab, l 16:25: Sebastian Route: PO, Salma nn 00 Drug form: TAB, QID, Dosing Weight 75.909, kg, PRN Dizziness, Start date: 10/17/13 10:25:00, Duration: 30 day, Stop date: 11/16/13 10:24:00(S sharron as: Antivert) meclizine 2013-0 No Howard 25 mg, 1 Mem oria 2-02 Fer tab, l 16:25: Sebastian Route: PO, Salma nn 00 Drug form: TAB, QID, Dosing Weight 75.909, kg, PRN Dizziness, Start date: 10/17/13 10:25:00, Duration: 30 day, Stop date: 11/16/13 10:24:00(S sharron as: Antivert) meclizine 2013-0 No Howard 25 mg, 1 Mem oria 2-02 Fer tab, l 16:25: Sebastian Route: PO, Salma nn 00 Drug form: TAB, QID, Dosing Weight 75.909, kg, PRN Dizziness, Start date: 10/17/13 10:25:00, Duration: 30 day, Stop date: 11/16/13 10:24:00(S sharron as: Antivert) meclizine 2013-0 No Howard 25 mg, 1 Mem oria 2-02 Fer tab, l 16:25: Sebastian Route: PO, Salma nn 00 Drug form: TAB, QID, Dosing Weight 75.909, kg, PRN Dizziness, Start date: 10/17/13 10:25:00, Duration: 30 day, Stop date: 11/16/13 10:24:00(S sharron as: Antivert) meclizine 2013-0 No Howard 25 mg, 1 Mem oria 2-02 Fer tab, l 16:25: Sebastian Route: PO, Salma nn 00 Drug form: TAB, QID, Dosing Weight 75.909, kg, PRN Dizziness, Start date: 10/17/13 10:25:00, Duration: 30 day, Stop date: 11/16/13 10:24:00(S sharron as: Antivert) meclizine 2013-0 No Howard 25 mg, 1 Mem oria 2-02 Fer tab, l 16:25: Sebastian Route: PO, Salma nn 00 Drug form: TAB, QID, Dosing Weight 75.909, kg, PRN Dizziness, Start date: 10/17/13 10:25:00, Duration: 30 day, Stop date: 11/16/13 10:24:00(S sharron as: Antivert) meclizine 2013-0 No Howard 25 mg, 1 Mem oria 2-02 Fer tab, l 16:25: Sebastian Route: PO, Salma nn 00 Drug form: TAB, QID, Dosing Weight 75.909, kg, PRN Dizziness, Start date: 10/17/13 10:25:00, Duration: 30 day, Stop date: 11/16/13 10:24:00(S sharron as: Antivert) meclizine 2013-0 No Howard 25 mg, 1 Mem oria 2-02 Fer tab, l 16:25: Sebastian Route: PO, Salma nn 00 Drug form: TAB, QID, Dosing Weight 75.909, kg, PRN Dizziness, Start date: 10/17/13 10:25:00, Duration: 30 day, Stop date: 11/16/13 10:24:00(S sharron as: Antivert) meclizine 2013-0 No Howard 25 mg, 1 Mem oria 2-02 Fer tab, l 16:25: Sebastian Route: PO, Salma nn 00 Drug form: TAB, QID, Dosing Weight 75.909, kg, PRN Dizziness, Start date: 10/17/13 10:25:00, Duration: 30 day, Stop date: 11/16/13 10:24:00(S sharron as: Antivert) meclizine 2013-0 No Howard 25 mg, 1 Mem oria 2-02 Fer tab, l 15:45: Sebastian Route: PO, Salma nn 00 Drug form: TAB, TID, Dosing Weight 75.909, kg, PRN Dizziness, Start date: 10/17/13 9:45:00, Duration: 30 day, Stop date: 11/16/13 9:44:00(Sa me as: Antivert) meclizine 2013-0 No Howard 25 mg, 1 Mem oria 2-02 Fer tab, l 15:45: Sebastian Route: PO, Salma nn 00 Drug form: TAB, TID, Dosing Weight 75.909, kg, PRN Dizziness, Start date: 10/17/13 9:45:00, Duration: 30 day, Stop date: 11/16/13 9:44:00(Sa me as: Antivert) meclizine 2013-0 No Howard 25 mg, 1 Mem oria 2-02 Fer tab, l 15:45: Sebastian Route: PO, Salma nn 00 Drug form: TAB, TID, Dosing Weight 75.909, kg, PRN Dizziness, Start date: 10/17/13 9:45:00, Duration: 30 day, Stop date: 11/16/13 9:44:00(Sa me as: Antivert) meclizine 2013-0 No Howard 25 mg, 1 Mem oria 2-02 Fer tab, l 15:45: Sebastian Route: PO, Salma nn 00 Drug form: TAB, TID, Dosing Weight 75.909, kg, PRN Dizziness, Start date: 10/17/13 9:45:00, Duration: 30 day, Stop date: 11/16/13 9:44:00(Sa me as: Antivert) meclizine 2013-0 No Howard 25 mg, 1 Mem oria 2-02 Fer tab, l 15:45: Sebastian Route: PO, Salma nn 00 Drug form: TAB, TID, Dosing Weight 75.909, kg, PRN Dizziness, Start date: 10/17/13 9:45:00, Duration: 30 day, Stop date: 11/16/13 9:44:00(Sa me as: Antivert) meclizine No Howard 25 mg, 1 Mem oria 2-02 Fer tab, l 15:45: Sebastian Route: PO, Salma nn Drug form: TAB, TID, Dosing Weight 75.909, kg, PRN Dizziness, Start date: 10/17/13 9:45:00, Duration: 30 day, Stop date: 11/16/13 9:44:00(Sa me as: Antivert) meclizine 2013-0 No Howard 25 mg, 1 Mem oria 2-02 Fer tab, l 15:45: Sebastian Route: PO, Salma nn 00 Drug form: TAB, TID, Dosing Weight 75.909, kg, PRN Dizziness, Start date: 10/17/13 9:45:00, Duration: 30 day, Stop date: 11/16/13 9:44:00(Sa me as: Antivert) meclizine 2013-0 No Howard 25 mg, 1 Mem oria 2-02 Fer tab, l 15:45: Sebastian Route: PO, Salma nn 00 Drug form: TAB, TID, Dosing Weight 75.909, kg, PRN Dizziness, Start date: 10/17/13 9:45:00, Duration: 30 day, Stop date: 11/16/13 9:44:00(Sa me as: Antivert) meclizine 2013-0 No Howard 25 mg, 1 Mem oria 2-02 Fer tab, l 15:45: Sebastian Route: PO, Salma nn 00 Drug form: TAB, TID, Dosing Weight 75.909, kg, PRN Dizziness, Start date: 10/17/13 9:45:00, Duration: 30 day, Stop date: 11/16/13 9:44:00(Sa me as: Antivert) meclizine 2013-0 No Howard 25 mg, 1 Mem oria 2-02 Fer tab, l 15:45: Sebastian Route: PO, Salma nn 00 Drug form: TAB, TID, Dosing Weight 75.909, kg, PRN Dizziness, Start date: 10/17/13 9:45:00, Duration: 30 day, Stop date: 11/16/13 9:44:00(Sa me as: Antivert) meclizine No Howard 25 mg, 1 Mem oria 2-02 Fer tab, l 15:45: Sebastian Route: PO, Salma nn 00 Drug form: TAB, TID, Dosing Weight 75.909, kg, PRN Dizziness, Start date: 10/17/13 9:45:00, Duration: 30 day, Stop date: 11/16/13 9:44:00(Sa me as: Antivert) meclizine 2013-0 No Howard 25 mg, 1 Mem oria 2-02 Fer tab, l 15:45: Sebastian Route: PO, Salma nn 00 Drug form: TAB, TID, Dosing Weight 75.909, kg, PRN Dizziness, Start date: 10/17/13 9:45:00, Duration: 30 day, Stop date: 11/16/13 9:44:00(Sa me as: Antivert) meclizine 2013-0 No Howard 25 mg, 1 Mem oria 2-02 Fer tab, l 15:45: Sebastian Route: PO, Salma nn 00 Drug form: TAB, TID, Dosing Weight 75.909, kg, PRN Dizziness, Start date: 10/17/13 9:45:00, Duration: 30 day, Stop date: 11/16/13 9:44:00(Sa me as: Antivert) meclizine 0 No Howard 25 mg, 1 Mem oria 2-02 Fer tab, l 15:45: Sebastian Route: PO, Salma nn 00 Drug form: TAB, TID, Dosing Weight 75.909, kg, PRN Dizziness, Start date: 10/17/13 9:45:00, Duration: 30 day, Stop date: 11/16/13 9:44:00(Sa me as: Antivert) meclizine No Howard 25 mg, 1 Mem oria 2-02 Fer tab, l 15:45: Sebastian Route: PO, Salma nn 00 Drug form: TAB, TID, Dosing Weight 75.909, kg, PRN Dizziness, Start date: 10/17/13 9:45:00, Duration: 30 day, Stop date: 11/16/13 9:44:00(Sa me as: Antivert) meclizine No Howard 25 mg, 1 Mem oria 2-02 Fer tab, l 15:45: Sebastian Route: PO, Salma nn 00 Drug form: TAB, TID, Dosing Weight 75.909, kg, PRN Dizziness, Start date: 10/17/13 9:45:00, Duration: 30 day, Stop date: 11/16/13 9:44:00(Sa me as: Antivert) meclizine No Howard 25 mg, 1 Mem oria 2-02 Fer tab, l 15:45: Sebastian Route: PO, Salma nn 00 Drug form: TAB, TID, Dosing Weight 75.909, kg, PRN Dizziness, Start date: 10/17/13 9:45:00, Duration: 30 day, Stop date: 11/16/13 9:44:00(Sa me as: Antivert) meclizine 0 No Howard 25 mg, 1 Mem oria 2-02 Fer tab, l 15:45: Sebastian Route: PO, Salma nn 00 Drug form: TAB, TID, Dosing Weight 75.909, kg, PRN Dizziness, Start date: 10/17/13 9:45:00, Duration: 30 day, Stop date: 11/16/13 9:44:00(Sa me as: Antivert) meclizine 2013-0 No Howard 25 mg, 1 Mem oria 2-02 Fer tab, l 15:45: Sebastian Route: PO, Salma nn 00 Drug form: TAB, TID, Dosing Weight 75.909, kg, PRN Dizziness, Start date: 10/17/13 9:45:00, Duration: 30 day, Stop date: 11/16/13 9:44:00(Sa me as: Antivert) meclizine No Howard 25 mg, 1 Mem oria 2-02 Fer tab, l 15:45: Sebastian Route: PO, Salma nn 00 Drug form: TAB, TID, Dosing Weight 75.909, kg, PRN Dizziness, Start date: 10/17/13 9:45:00, Duration: 30 day, Stop date: 11/16/13 9:44:00(Sa me as: Antivert) meclizine 0 No Howard 25 mg, 1 Mem oria 2-02 Fer tab, l 15:45: Sebastian Route: PO, Salma nn 00 Drug form: TAB, TID, Dosing Weight 75.909, kg, PRN Dizziness, Start date: 10/17/13 9:45:00, Duration: 30 day, Stop date: 11/16/13 9:44:00(Sa me as: Antivert) meclizine 0 No Howard 25 mg, 1 Mem oria 2-02 Fer tab, l 15:45: Sebastian Route: PO, Salma nn 00 Drug form: TAB, TID, Dosing Weight 75.909, kg, PRN Dizziness, Start date: 10/17/13 9:45:00, Duration: 30 day, Stop date: 11/16/13 9:44:00(Sa me as: Antivert) meclizine 2013-0 No Howard 25 mg, 1 Mem oria 2-02 Fer tab, l 15:45: Sebastian Route: PO, Salma nn 00 Drug form: TAB, TID, Dosing Weight 75.909, kg, PRN Dizziness, Start date: 10/17/13 9:45:00, Duration: 30 day, Stop date: 11/16/13 9:44:00(Sa me as: Antivert) meclizine 2013-0 No Howard 25 mg, 1 Mem oria 2-02 Fer tab, l 15:45: Sebastian Route: PO, Salma nn 00 Drug form: TAB, TID, Dosing Weight 75.909, kg, PRN Dizziness, Start date: 10/17/13 9:45:00, Duration: 30 day, Stop date: 11/16/13 9:44:00(Sa me as: Antivert) meclizine 0 No Howard 25 mg, 1 Mem oria 2-02 Fer tab, l 15:45: Sebastian Route: PO, Salma nn 00 Drug form: TAB, TID, Dosing Weight 75.909, kg, PRN Dizziness, Start date: 10/17/13 9:45:00, Duration: 30 day, Stop date: 11/16/13 9:44:00(Sa me as: Antivert) meclizine 0 No Howard 25 mg, 1 Mem oria 2-02 Fer tab, l 15:45: Sebastian Route: PO, Salma nn 00 Drug form: TAB, TID, Dosing Weight 75.909, kg, PRN Dizziness, Start date: 10/17/13 9:45:00, Duration: 30 day, Stop date: 11/16/13 9:44:00(Sa me as: Antivert) meclizine 0 No Howard 25 mg, 1 Mem oria 2-02 Fer tab, l 15:45: Sebastian Route: PO, Salma nn 00 Drug form: TAB, TID, Dosing Weight 75.909, kg, PRN Dizziness, Start date: 10/17/13 9:45:00, Duration: 30 day, Stop date: 11/16/13 9:44:00(Sa me as: Antivert) warfarin 0 No Howard 3 mg, 3 Memor ia [...] diet. (Same As: Coumadin) warfarin No Howard 3 mg, 3 Memor ia 2- Fer tab, l 23:00: Sebastian Route: PO, Salma nn 00 Drug form: TAB, Q5PM, Dosing Weight 75.909, kg, Start date: 10/16/13 17:00:00, Duration: 1 doses or times, Stop date: 10/16/13 17:00:00Nu rse to ensure documentat ion of patient education per anticoagul ation policy. Avoid large intake of vitamin-K containing foods diet. (Same As: Coumadin) warfarin No Howard 3 mg, 3 Memor ia 2- Fer tab, l 23:00: Sebastian Route: PO, Salma nn 00 Drug form: TAB, Q5PM, Dosing Weight 75.909, kg, Start date: 10/16/13 17:00:00, Duration: 1 doses or times, Stop date: 10/16/13 17:00:00Nu rse to ensure documentat ion of patient education per anticoagul ation policy. Avoid large intake of vitamin-K containing foods diet. (Same As: Coumadin) warfarin No Howard 3 mg, 3 Mem[facility] ia 2- Fer tab, l 23:00: Sebastian Route: PO, Salma nn 00 Drug form: TAB, Q5PM, Dosing Weight 75.909, kg, Start date: 10/16/13 17:00:00, Duration: 1 doses or times, Stop date: 10/16/13 17:00:00Nu rse to ensure documentat ion of patient education per anticoagul ation policy. Avoid large intake of vitamin-K containing foods diet. (Same As: Coumadin) warfarin No Howard 3 mg, 3 Mem[facility] 2- Fer tab, l 23:00: Sebastian Route: PO, Salma nn 00 Drug form: TAB, Q5PM, Dosing Weight 75.909, kg, Start date: 10/16/13 17:00:00, Duration: 1 doses or times, Stop date: 10/16/13 17:00:00Nu rse to ensure documentat ion of patient education per anticoagul ation policy. Avoid large intake of vitamin-K containing foods diet. (Same As: Coumadin) warfarin No Howard 3 mg, 3 Mem[facility] ia 2- Fer tab, l 23:00: Sebastian Route: PO, Salma nn 00 Drug form: TAB, Q5PM, Dosing Weight 75.909, kg, Start date: 10/16/13 17:00:00, Duration: 1 doses or times, Stop date: 10/16/13 17:00:00Nu rse to ensure documentat ion of patient education per anticoagul ation policy. Avoid large intake of vitamin-K containing foods diet. (Same As: Coumadin) warfarin No Howard 3 mg, 3 Mem[facility] ia 2- Fer tab, l 23:00: Sebastian Route: PO, Salma nn 00 Drug form: TAB, Q5PM, Dosing Weight 75.909, kg, Start date: 10/16/13 17:00:00, Duration: 1 doses or times, Stop date: 10/16/13 17:00:00Nu rse to ensure documentat ion of patient education per anticoagul ation policy. Avoid large intake of vitamin-K containing foods diet. (Same As: Coumadin) warfarin No Howard 3 mg, 3 Mem[facility] ia 2- Fer tab, l 23:00: Sebastian Route: PO, Salma nn 00 Drug form: TAB, Q5PM, Dosing Weight 75.909, kg, Start date: 10/16/13 17:00:00, Duration: 1 doses or times, Stop date: 10/16/13 17:00:00Nu rse to ensure documentat ion of patient education per anticoagul ation policy. Avoid large intake of vitamin-K containing foods diet. (Same As: Coumadin) warfarin No Howard 3 mg, 3 Mem[facility] ia 2- Fer tab, l 23:00: Sebastian Route: PO, Salma nn 00 Drug form: TAB, Q5PM, Dosing Weight 75.909, kg, Start date: 10/16/13 17:00:00, Duration: 1 doses or times, Stop date: 10/16/13 17:00:00Nu rse to ensure documentat ion of patient education per anticoagul ation policy. Avoid large intake of vitamin-K containing foods diet. (Same As: Coumadin) warfarin No Howard 3 mg, 3 Memor [...] diet. (Same As: Coumadin) warfarin No Howard 3 mg, 3 Memor ia 2- Fer tab, l 23:00: Sebastian Route: PO, Salma nn 00 Drug form: TAB, Q5PM, Dosing Weight 75.909, kg, Start date: 10/16/13 17:00:00, Duration: 1 doses or times, Stop date: 10/16/13 17:00:00Nu rse to ensure documentat ion of patient education per anticoagul ation policy. Avoid large intake of vitamin-K containing foods diet. (Same As: Coumadin) warfarin No Howard 3 mg, 3 Mem[facility] ia 2- Fer tab, l 23:00: Sebastian Route: PO, Salma nn 00 Drug form: TAB, Q5PM, Dosing Weight 75.909, kg, Start date: 10/16/13 17:00:00, Duration: 1 doses or times, Stop date: 10/16/13 17:00:00Nu rse to ensure documentat ion of patient education per anticoagul ation policy. Avoid large intake of vitamin-K containing foods diet. (Same As: Coumadin) warfarin No Howard 3 mg, 3 Mem[facility] ia 2- Fer tab, l 23:00: Sebastian Route: PO, Salma nn 00 Drug form: TAB, Q5PM, Dosing Weight 75.909, kg, Start date: 10/16/13 17:00:00, Duration: 1 doses or times, Stop date: 10/16/13 17:00:00Nu rse to ensure documentat ion of patient education per anticoagul ation policy. Avoid large intake of vitamin-K containing foods diet. (Same As: Coumadin) warfarin No Howard 3 mg, 3 Memor ia 2- Fer tab, l 23:00: Sebastian Route: PO, Salma nn 00 Drug form: TAB, Q5PM, Dosing Weight 75.909, kg, Start date: 10/16/13 17:00:00, Duration: 1 doses or times, Stop date: 10/16/13 17:00:00Nu rse to ensure documentat ion of patient education per anticoagul ation policy. Avoid large intake of vitamin-K containing foods diet. (Same As: Coumadin) warfarin No Howard 3 mg, 3 Memor ia 2- Fer tab, l 23:00: Sebastian Route: PO, Salma nn 00 Drug form: TAB, Q5PM, Dosing Weight 75.909, kg, Start date: 10/16/13 17:00:00, Duration: 1 doses or times, Stop date: 10/16/13 17:00:00Nu rse to ensure documentat ion of patient education per anticoagul ation policy. Avoid large intake of vitamin-K containing foods diet. (Same As: Coumadin) warfarin No Howard 3 mg, 3 Mem[facility] ia 2- Fer tab, l 23:00: Sebastian Route: PO, Salma nn 00 Drug form: TAB, Q5PM, Dosing Weight 75.909, kg, Start date: 10/16/13 17:00:00, Duration: 1 doses or times, Stop date: 10/16/13 17:00:00Nu rse to ensure documentat ion of patient education per anticoagul ation policy. Avoid large intake of vitamin-K containing foods diet. (Same As: Coumadin) warfarin No Howard 3 mg, 3 Memor [...] diet. (Same As: Coumadin) warfarin No Howard 3 mg, 3 Memor [...] diet. (Same As: Coumadin) warfarin No Howard 3 mg, 3 Memor [...] diet. (Same As: Coumadin) warfarin No Howard 3 mg, 3 Memor ia 2- Fer tab, l 23:00: Sebastian Route: PO, Salma nn 00 Drug form: TAB, Q5PM, Dosing Weight 75.909, kg, Start date: 10/16/13 17:00:00, Duration: 1 doses or times, Stop date: 10/16/13 17:00:00Nu rse to ensure documentat ion of patient education per anticoagul ation policy. Avoid large intake of vitamin-K containing foods diet. (Same As: Coumadin) warfarin No Howard 3 mg, 3 Memor ia 2- Fer tab, l 23:00: Sebastian Route: PO, Salma nn 00 Drug form: TAB, Q5PM, Dosing Weight 75.909, kg, Start date: 10/16/13 17:00:00, Duration: 1 doses or times, Stop date: 10/16/13 17:00:00Nu rse to ensure documentat ion of patient education per anticoagul ation policy. Avoid large intake of vitamin-K containing foods diet. (Same As: Coumadin) warfarin No Howard 3 mg, 3 Memor [...] diet. (Same As: Coumadin) warfarin No Howard 3 mg, 3 Memor ia 2- Fer tab, l 23:00: Sebastian Route: PO, Salma nn 00 Drug form: TAB, Q5PM, Dosing Weight 75.909, kg, Start date: 10/16/13 17:00:00, Duration: 1 doses or times, Stop date: 10/16/13 17:00:00Nu rse to ensure documentat ion of patient education per anticoagul ation policy. Avoid large intake of vitamin-K containing foods diet. (Same As: Coumadin) warfarin No Howrad 3 mg, 3 Memor ia 2- Fer tab, l 23:00: Sebastian Route: PO, Salma nn 00 Drug form: TAB, Q5PM, Dosing Weight 75.909, kg, Start date: 10/16/13 17:00:00, Duration: 1 doses or times, Stop date: 10/16/13 17:00:00Nu rse to ensure documentat ion of patient education per anticoagul ation policy. Avoid large intake of vitamin-K containing foods diet. (Same As: Coumadin) warfarin No Howard 3 mg, 3 Memor ia 2- Fer tab, l 23:00: Sebastian Route: PO, Salma nn 00 Drug form: TAB, Q5PM, Dosing Weight 75.909, kg, Start date: 10/16/13 17:00:00, Duration: 1 doses or times, Stop date: 10/16/13 17:00:00Nu rse to ensure documentat ion of patient education per anticoagul ation policy. Avoid large intake of vitamin-K containing foods diet. (Same As: Coumadin) warfarin No Howard 3 mg, 3 Memor [...] diet. (Same As: Coumadin) warfarin No Howard 3 mg, 3 Memor ia 2- Fer tab, l 23:00: Sebastian Route: PO, Salma nn 00 Drug form: TAB, Q5PM, Dosing Weight 75.909, kg, Start date: 10/16/13 17:00:00, Duration: 1 doses or times, Stop date: 10/16/13 17:00:00Nu rse to ensure documentat ion of patient education per anticoagul ation policy. Avoid large intake of vitamin-K containing foods diet. (Same As: Coumadin) warfarin No Howard 6 mg, 3 Memor ia - Fer tab, l 23:00: Sebastian Route: PO, Salma nn 00 Drug form: TAB, Q5PM, Dosing Weight 75.909, kg, Start date: 10/15/13 17:00:00, Duration: 1 doses or times, Stop date: 10/15/13 17:00:00Nu rse to ensure documentat ion of patient education per anticoagul ation policy. Avoid large intake of vitamin-K containing foods diet. (Same As: Coumadin) warfarin No Howard 6 mg, 3 Memor ia - Fer tab, l 23:00: Sebastian Route: PO, Salma nn 00 Drug form: TAB, Q5PM, Dosing Weight 75.909, kg, Start date: 10/15/13 17:00:00, Duration: 1 doses or times, Stop date: 10/15/13 17:00:00Nu rse to ensure documentat ion of patient education per anticoagul ation policy. Avoid large intake of vitamin-K containing foods diet. (Same As: Coumadin) warfarin No Howard 6 mg, 3 Memor ia - Fer tab, l 23:00: Sebastian Route: PO, Salma nn 00 Drug form: TAB, Q5PM, Dosing Weight 75.909, kg, Start date: 10/15/13 17:00:00, Duration: 1 doses or times, Stop date: 10/15/13 17:00:00Nu rse to ensure documentat ion of patient education per anticoagul ation policy. Avoid large intake of vitamin-K containing foods diet. (Same As: Coumadin) warfarin No Howard 6 mg, 3 Memor ia 10-15 Fer tab, l 23:00: Sebastian Route: PO, Salma nn 00 Drug form: TAB, Q5PM, Dosing Weight 75.909, kg, Start date: 10/15/13 17:00:00, Duration: 1 doses or times, Stop date: 10/15/13 17:00:00Nu rse to ensure documentat ion of patient education per anticoagul ation policy. Avoid large intake of vitamin-K containing foods diet. (Same As: Coumadin) warfarin No Howard 6 mg, 3 Memor ia 10-15 Fer tab, l 23:00: Sebastian Route: PO, Salma nn 00 Drug form: TAB, Q5PM, Dosing Weight 75.909, kg, Start date: 10/15/13 17:00:00, Duration: 1 doses or times, Stop date: 10/15/13 17:00:00Nu rse to ensure documentat ion of patient education per anticoagul ation policy. Avoid large intake of vitamin-K containing foods diet. (Same As: Coumadin) warfarin No Howard 6 mg, 3 Memor ia 10-15 Fer tab, l 23:00: Sebastian Route: PO, Salma nn 00 Drug form: TAB, Q5PM, Dosing Weight 75.909, kg, Start date: 10/15/13 17:00:00, Duration: 1 doses or times, Stop date: 10/15/13 17:00:00Nu rse to ensure documentat ion of patient education per anticoagul ation policy. Avoid large intake of vitamin-K containing foods diet. (Same As: Coumadin) warfarin No Howard 6 mg, 3 Memor ia 10-15 Fer tab, l 23:00: Sebastian Route: PO, Salma nn 00 Drug form: TAB, Q5PM, Dosing Weight 75.909, kg, Start date: 10/15/13 17:00:00, Duration: 1 doses or times, Stop date: 10/15/13 17:00:00Nu rse to ensure documentat ion of patient education per anticoagul ation policy. Avoid large intake of vitamin-K containing foods diet. (Same As: Coumadin) warfarin No Howard 6 mg, 3 Memor ia 10-15 Fer tab, l 23:00: Sebastian Route: PO, Salma nn 00 Drug form: TAB, Q5PM, Dosing Weight 75.909, kg, Start date: 10/15/13 17:00:00, Duration: 1 doses or times, Stop date: 10/15/13 17:00:00Nu rse to ensure documentat ion of patient education per anticoagul ation policy. Avoid large intake of vitamin-K containing foods diet. (Same As: Coumadin) warfarin No Howard 6 mg, 3 Memor ia 10-15 Fer tab, l 23:00: Sebastian Route: PO, Salma nn 00 Drug form: TAB, Q5PM, Dosing Weight 75.909, kg, Start date: 10/15/13 17:00:00, Duration: 1 doses or times, Stop date: 10/15/13 17:00:00Nu rse to ensure documentat ion of patient education per anticoagul ation policy. Avoid large intake of vitamin-K containing foods diet. (Same As: Coumadin) warfarin No Howard 6 mg, 3 Memor ia 10-15 Fer tab, l 23:00: Sebastian Route: PO, Salma nn 00 Drug form: TAB, Q5PM, Dosing Weight 75.909, kg, Start date: 10/15/13 17:00:00, Duration: 1 doses or times, Stop date: 10/15/13 17:00:00Nu rse to ensure documentat ion of patient education per anticoagul ation policy. Avoid large intake of vitamin-K containing foods diet. (Same As: Coumadin) warfarin No Howard 6 mg, 3 Memor ia 10-15 Fer tab, l 23:00: Sebastian Route: PO, Salma nn 00 Drug form: TAB, Q5PM, Dosing Weight 75.909, kg, Start date: 10/15/13 17:00:00, Duration: 1 doses or times, Stop date: 10/15/13 17:00:00Nu rse to ensure documentat ion of patient education per anticoagul ation policy. Avoid large intake of vitamin-K containing foods diet. (Same As: Coumadin) warfarin No Howard 6 mg, 3 Memor ia 10-15 Fer tab, l 23:00: Sebastian Route: PO, Salma nn 00 Drug form: TAB, Q5PM, Dosing Weight 75.909, kg, Start date: 10/15/13 17:00:00, Duration: 1 doses or times, Stop date: 10/15/13 17:00:00Nu rse to ensure documentat ion of patient education per anticoagul ation policy. Avoid large intake of vitamin-K containing foods diet. (Same As: Coumadin) warfarin No Howard 6 mg, 3 Memor ia 10-15 Fer tab, l 23:00: Sebastian Route: PO, Salma nn 00 Drug form: TAB, Q5PM, Dosing Weight 75.909, kg, Start date: 10/15/13 17:00:00, Duration: 1 doses or times, Stop date: 10/15/13 17:00:00Nu rse to ensure documentat ion of patient education per anticoagul ation policy. Avoid large intake of vitamin-K containing foods diet. (Same As: Coumadin) warfarin No Howard 6 mg, 3 Memor ia 10-15 Fer tab, l 23:00: Sebastian Route: PO, Salma nn 00 Drug form: TAB, Q5PM, Dosing Weight 75.909, kg, Start date: 10/15/13 17:00:00, Duration: 1 doses or times, Stop date: 10/15/13 17:00:00Nu rse to ensure documentat ion of patient education per anticoagul ation policy. Avoid large intake of vitamin-K containing foods diet. (Same As: Coumadin) warfarin No Howard 6 mg, 3 Memor ia 10-15 Fer tab, l 23:00: Sebastian Route: PO, Salma nn 00 Drug form: TAB, Q5PM, Dosing Weight 75.909, kg, Start date: 10/15/13 17:00:00, Duration: 1 doses or times, Stop date: 10/15/13 17:00:00Nu rse to ensure documentat ion of patient education per anticoagul ation policy. Avoid large intake of vitamin-K containing foods diet. (Same As: Coumadin) warfarin No Howard 6 mg, 3 Memor ia 10-15 Fer tab, l 23:00: Sebastian Route: PO, Salma nn 00 Drug form: TAB, Q5PM, Dosing Weight 75.909, kg, Start date: 10/15/13 17:00:00, Duration: 1 doses or times, Stop date: 10/15/13 17:00:00Nu rse to ensure documentat ion of patient education per anticoagul ation policy. Avoid large intake of vitamin-K containing foods diet. (Same As: Coumadin) warfarin No Howard 6 mg, 3 Memor ia 10-15 Fer tab, l 23:00: Sebastian Route: PO, Salma nn 00 Drug form: TAB, Q5PM, Dosing Weight 75.909, kg, Start date: 10/15/13 17:00:00, Duration: 1 doses or times, Stop date: 10/15/13 17:00:00Nu rse to ensure documentat ion of patient education per anticoagul ation policy. Avoid large intake of vitamin-K containing foods diet. (Same As: Coumadin) warfarin No Howard 6 mg, 3 Memor ia 10-15 Fer tab, l 23:00: Sebastian Route: PO, Salma nn 00 Drug form: TAB, Q5PM, Dosing Weight 75.909, kg, Start date: 10/15/13 17:00:00, Duration: 1 doses or times, Stop date: 10/15/13 17:00:00Nu rse to ensure documentat ion of patient education per anticoagul ation policy. Avoid large intake of vitamin-K containing foods diet. (Same As: Coumadin) warfarin No Howard 6 mg, 3 Memor ia 10-15 Fer tab, l 23:00: Sebastian Route: PO, Salma nn 00 Drug form: TAB, Q5PM, Dosing Weight 75.909, kg, Start date: 10/15/13 17:00:00, Duration: 1 doses or times, Stop date: 10/15/13 17:00:00Nu rse to ensure documentat ion of patient education per anticoagul ation policy. Avoid large intake of vitamin-K containing foods diet. (Same As: Coumadin) warfarin No Howard 6 mg, 3 Memor ia 10-15 Fer tab, l 23:00: Sebastian Route: PO, Salma nn 00 Drug form: TAB, Q5PM, Dosing Weight 75.909, kg, Start date: 10/15/13 17:00:00, Duration: 1 doses or times, Stop date: 10/15/13 17:00:00Nu rse to ensure documentat ion of patient education per anticoagul ation policy. Avoid large intake of vitamin-K containing foods diet. (Same As: Coumadin) warfarin No Howard 6 mg, 3 Memor ia 10-15 Fer tab, l 23:00: Sebastian Route: PO, Salma nn 00 Drug form: TAB, Q5PM, Dosing Weight 75.909, kg, Start date: 10/15/13 17:00:00, Duration: 1 doses or times, Stop date: 10/15/13 17:00:00Nu rse to ensure documentat ion of patient education per anticoagul ation policy. Avoid large intake of vitamin-K containing foods diet. (Same As: Coumadin) warfarin No Howard 6 mg, 3 Memor ia 10-15 Fer tab, l 23:00: Sebastian Route: PO, Salma nn 00 Drug form: TAB, Q5PM, Dosing Weight 75.909, kg, Start date: 10/15/13 17:00:00, Duration: 1 doses or times, Stop date: 10/15/13 17:00:00Nu rse to ensure documentat ion of patient education per anticoagul ation policy. Avoid large intake of vitamin-K containing foods diet. (Same As: Coumadin) warfarin No Howard 6 mg, 3 Memor ia 10-15 Fer tab, l 23:00: Sebastian Route: PO, Salma nn 00 Drug form: TAB, Q5PM, Dosing Weight 75.909, kg, Start date: 10/15/13 17:00:00, Duration: 1 doses or times, Stop date: 10/15/13 17:00:00Nu rse to ensure documentat ion of patient education per anticoagul ation policy. Avoid large intake of vitamin-K containing foods diet. (Same As: Coumadin) warfarin No Howard 6 mg, 3 Memor ia 10-15 Fer tab, l 23:00: Sebastian Route: PO, Salma nn 00 Drug form: TAB, Q5PM, Dosing Weight 75.909, kg, Start date: 10/15/13 17:00:00, Duration: 1 doses or times, Stop date: 10/15/13 17:00:00Nu rse to ensure documentat ion of patient education per anticoagul ation policy. Avoid large intake of vitamin-K containing foods diet. (Same As: Coumadin) warfarin No Howard 6 mg, 3 Memor ia 10-15 Fer tab, l 23:00: Sebastian Route: PO, Salma nn 00 Drug form: TAB, Q5PM, Dosing Weight 75.909, kg, Start date: 10/15/13 17:00:00, Duration: 1 doses or times, Stop date: 10/15/13 17:00:00Nu rse to ensure documentat ion of patient education per anticoagul ation policy. Avoid large intake of vitamin-K containing foods diet. (Same As: Coumadin) warfarin No Howard 6 mg, 3 Memor ia 10-15 Fer tab, l 23:00: Sebastian Route: PO, Salma nn 00 Drug form: TAB, Q5PM, Dosing Weight 75.909, kg, Start date: 10/15/13 17:00:00, Duration: 1 doses or times, Stop date: 10/15/13 17:00:00Nu rse to ensure documentat ion of patient education per anticoagul ation policy. Avoid large intake of vitamin-K containing foods diet. (Same As: Coumadin) warfarin No Howard 6 mg, 3 Memor ia 10-15 Fer tab, l 23:00: Sebastian Route: PO, [...] mL, Route: l 18:00: Sebastian PO, Drug Lead 00 form: LIQ, ONCE, Dosing Weight 75.909, kg, Start date: 10/15/13 12:00:00, Stop date: 10/15/13 12:00:00(S sharron as: Imodium) loperamide No Howard 1 mg, 5 Mem oria 1-31 Fer mL, Route: l 18:00: Sebastian PO, Drug Vinnie 00 form: LIQ, ONCE, Dosing Weight 75.909, kg, Start date: 10/15/13 12:00:00, Stop date: 10/15/13 12:00:00(S sharron as: Imodium) loperamide No Howard 1 mg, 5 Mem oria 1-31 Fer mL, Route: l 18:00: Sebastian PO, Drug Vinnie 00 form: LIQ, ONCE, Dosing Weight 75.909, kg, Start date: 10/15/13 12:00:00, Stop date: 10/15/13 12:00:00(S sharron as: Imodium) loperamide No Howard 1 mg, 5 Mem oria 1-31 Fer mL, Route: l 18:00: Sebastian PO, Drug Lead 00 form: LIQ, ONCE, Dosing Weight 75.909, kg, Start date: 10/15/13 12:00:00, Stop date: 10/15/13 12:00:00(S sharron as: Imodium) loperamide No Howard 1 mg, 5 Mem oria 1-31 Fer mL, Route: l 18:00: Sebastian PO, Drug Lead 00 form: LIQ, ONCE, Dosing Weight 75.909, kg, Start date: 10/15/13 12:00:00, Stop date: 10/15/13 12:00:00(S sharron as: Imodium) loperamide No Howard 1 mg, 5 Mem oria 1-31 Fer mL, Route: l 18:00: Sebastian PO, Drug Lead 00 form: LIQ, ONCE, Dosing Weight 75.909, kg, Start date: 10/15/13 12:00:00, Stop date: 10/15/13 12:00:00(S sharron as: Imodium) loperamide 2013-0 No Howard 1 mg, 5 Mem oria 1-31 Fer mL, Route: l 18:00: Sebastian PO, Drug Lead 00 form: LIQ, ONCE, Dosing Weight 75.909, kg, Start date: 10/15/13 12:00:00, Stop date: 10/15/13 12:00:00(S sharron as: Imodium) loperamide 2013-0 No Howard 1 mg, 5 Mem oria 1-31 Fer mL, Route: l 18:00: Sebastian PO, Drug Lead 00 form: LIQ, ONCE, Dosing Weight 75.909, kg, Start date: 10/15/13 12:00:00, Stop date: 10/15/13 12:00:00(S sharron as: Imodium) loperamide 2013-0 No Howard 1 mg, 5 Mem oria 1-31 Fer mL, Route: l 18:00: Sebastian PO, Drug Vinnie 00 form: LIQ, ONCE, Dosing Weight 75.909, kg, Start date: 10/15/13 12:00:00, Stop date: 10/15/13 12:00:00(S sharron as: Imodium) loperamide 2013-0 No Howard 1 mg, 5 Mem oria 1-31 Fer mL, Route: l 18:00: Sebastian PO, Drug Vinnie 00 form: LIQ, ONCE, Dosing Weight 75.909, kg, Start date: 10/15/13 12:00:00, Stop date: 10/15/13 12:00:00(S sharron as: Imodium) loperamide 2013-0 No Howard 1 mg, 5 Mem oria 1-31 Fer mL, Route: l 18:00: Sebastian PO, Drug Lead 00 form: LIQ, ONCE, Dosing Weight 75.909, kg, Start date: 10/15/13 12:00:00, Stop date: 10/15/13 12:00:00(S sharron as: Imodium) loperamide 2013-0 No Howard 1 mg, 5 Mem oria 1-31 Fer mL, Route: l 18:00: Sebastian PO, Drug Vinnie 00 form: LIQ, ONCE, Dosing Weight 75.909, kg, Start date: 10/15/13 12:00:00, Stop date: 10/15/13 12:00:00(S sharron as: Imodium) loperamide 2013-0 No Howard 1 mg, 5 Mem oria 1-31 Fer mL, Route: l 18:00: Sebastian PO, Drug Lead 00 form: LIQ, ONCE, Dosing Weight 75.909, kg, Start date: 10/15/13 12:00:00, Stop date: 10/15/13 12:00:00(S sharron as: Imodium) loperamide 2013-0 No Howard 1 mg, 5 Mem oria 1-31 Fer mL, Route: l 18:00: Sebastian PO, Drug Lead 00 form: LIQ, ONCE, Dosing Weight 75.909, kg, Start date: 10/15/13 12:00:00, Stop date: 10/15/13 12:00:00(S sharron as: Imodium) loperamide 0 No Howard 1 mg, 5 Mem oria 1-31 Fer mL, Route: l 18:00: Sebastian PO, Drug Vinnie 00 form: LIQ, ONCE, Dosing Weight 75.909, kg, Start date: 10/15/13 12:00:00, Stop date: 10/15/13 12:00:00(S sharron as: Imodium) loperamide 0 No Howard 1 mg, 5 Mem oria 1-31 Fer mL, Route: l 18:00: Sebastian PO, Drug Vinnie 00 form: LIQ, ONCE, Dosing Weight 75.909, kg, Start date: 10/15/13 12:00:00, Stop date: 10/15/13 12:00:00(S sharron as: Imodium) loperamide 2013-0 No Howard 1 mg, 5 Mem oria 1-31 Fer mL, Route: l 18:00: Sebastian PO, Drug Vinnie 00 form: LIQ, ONCE, Dosing Weight 75.909, kg, Start date: 10/15/13 12:00:00, Stop date: 10/15/13 12:00:00(S sharron as: Imodium) loperamide 0 No Howard 1 mg, 5 Mem oria 1-31 Fer mL, Route: l 18:00: Sebastian PO, Drug Lead 00 form: LIQ, ONCE, Dosing Weight 75.909, kg, Start date: 10/15/13 12:00:00, Stop date: 10/15/13 12:00:00(S sharron as: Imodium) loperamide 2013-0 No Howard 1 mg, 5 Mem oria 1-31 Fer mL, Route: l 18:00: Sebastian PO, Drug Lead 00 form: LIQ, ONCE, Dosing Weight 75.909, kg, Start date: 10/15/13 12:00:00, Stop date: 10/15/13 12:00:00(S sharron as: Imodium) loperamide 2013-0 No Howard 1 mg, 5 Mem oria 1-31 Fer mL, Route: l 18:00: Sebastian PO, Drug Vinnie 00 form: LIQ, ONCE, Dosing Weight 75.909, kg, Start date: 10/15/13 12:00:00, Stop date: 10/15/13 12:00:00(S sharron as: Imodium) loperamide No Howard 1 mg, 5 Mem oria 1-31 Fer mL, Route: l 18:00: Sebastian PO, Drug Lead 00 form: LIQ, ONCE, Dosing Weight 75.909, kg, Start date: 10/15/13 12:00:00, Stop date: 10/15/13 12:00:00(S sharron as: Imodium) loperamide No Howard 1 mg, 5 Mem oria 1-31 Fer mL, Route: l 18:00: Sebastian PO, Drug Vinnie 00 form: LIQ, ONCE, Dosing Weight 75.909, kg, Start date: 10/15/13 12:00:00, Stop date: 10/15/13 12:00:00(S sharron as: Imodium) loperamide 2013-0 No Howard 1 mg, 5 Mem oria 1-31 Efr mL, Route: l 18:00: Sebastian PO, Drug Vinnie 00 form: LIQ, ONCE, Dosing Weight 75.909, kg, Start date: 10/15/13 12:00:00, Stop date: 10/15/13 12:00:00(S sharron as: Imodium) loperamide 2013-0 No Howard 1 mg, 5 Mem oria 1-31 Fer mL, Route: l 18:00: Sebastian PO, Drug Lead 00 form: LIQ, ONCE, Dosing Weight 75.909, kg, Start date: 10/15/13 12:00:00, Stop date: 10/15/13 12:00:00(S sharron as: Imodium) loperamide 2013-0 No Howard 1 mg, 5 Mem oria 1-31 Fer mL, Route: l 18:00: Sebastian PO, Drug Vinnie 00 form: LIQ, ONCE, Dosing Weight 75.909, kg, Start date: 10/15/13 12:00:00, Stop date: 10/15/13 12:00:00(S sharron as: Imodium) loperamide 2013-0 No Howard 1 mg, 5 Mem oria 1-31 Fer mL, Route: l 18:00: Sebastian PO, Drug Lead 00 form: LIQ, ONCE, Dosing Weight 75.909, kg, Start date: 10/15/13 12:00:00, Stop date: 10/15/13 12:00:00(S sharron as: Imodium) loperamide 2013-0 No Howard 1 mg, 5 Mem oria 1-31 Fer mL, Route: l 18:00: Sebastian PO, Drug Lead 00 form: LIQ, ONCE, Dosing Weight 75.909, kg, Start date: 10/15/13 12:00:00, Stop date: 10/15/13 12:00:00(S sharron as: Imodium) loperamide 2013-0 No Howard 1 mg, 5 Mem oria 1-31 Fer mL, Route: l 17:59: Sebastian PO, Drug Vinnie 00 form: LIQ, Q6H, Dosing Weight 75.909, kg, PRN as needed for loose stool, Start date: 10/15/13 11:59:00, Duration: 30 day, Stop date: 11/14/13 11:58:00 loperamide 2013-0 No Howard 1 mg, 5 Mem oria 1-31 Fer mL, Route: l 17:59: Sebastian PO, Drug Lead 00 form: LIQ, Q6H, Dosing Weight 75.909, kg, PRN as needed for loose stool, Start date: 10/15/13 11:59:00, Duration: 30 day, Stop date: 11/14/13 11:58:00 loperamide 2013-0 No Howard 1 mg, 5 Mem oria 1-31 Fer mL, Route: l 17:59: Sebastian PO, Drug Vinnie 00 form: LIQ, Q6H, Dosing Weight 75.909, kg, PRN as needed for loose stool, Start date: 10/15/13 11:59:00, Duration: 30 day, Stop date: 11/14/13 11:58:00 loperamide 2013-0 No Howard 1 mg, 5 Mem oria 1-31 Fer mL, Route: l 17:59: Sebastian PO, Drug Lead 00 form: LIQ, Q6H, Dosing Weight 75.909, kg, PRN as needed for loose stool, Start date: 10/15/13 11:59:00, Duration: 30 day, Stop date: 11/14/13 11:58:00 loperamide 2013-0 No Howard 1 mg, 5 Mem oria 1-31 Fer mL, Route: l 17:59: Sebastian PO, Drug Lead 00 form: LIQ, Q6H, Dosing Weight 75.909, kg, PRN as needed for loose stool, Start date: 10/15/13 11:59:00, Duration: 30 day, Stop date: 11/14/13 11:58:00 loperamide 2013-0 No Howard 1 mg, 5 Mem oria 1-31 Fer mL, Route: l 17:59: Sebastian PO, Drug Vinnie 00 form: LIQ, Q6H, Dosing Weight 75.909, kg, PRN as needed for loose stool, Start date: 10/15/13 11:59:00, Duration: 30 day, Stop date: 11/14/13 11:58:00 loperamide 2013-0 No Howard 1 mg, 5 Mem oria 1-31 Fer mL, Route: l 17:59: Sebastian PO, Drug Lead 00 form: LIQ, Q6H, Dosing Weight 75.909, kg, PRN as needed for loose stool, Start date: 10/15/13 11:59:00, Duration: 30 day, Stop date: 11/14/13 11:58:00 loperamide 2013-0 No Howard 1 mg, 5 Mem oria 1-31 Fer mL, Route: l 17:59: Sebastian PO, Drug Vinnie 00 form: LIQ, Q6H, Dosing Weight 75.909, kg, PRN as needed for loose stool, Start date: 10/15/13 11:59:00, Duration: 30 day, Stop date: 11/14/13 11:58:00 loperamide 2013-0 No Howard 1 mg, 5 Mem oria 1-31 Fer mL, Route: l 17:59: Sebastian PO, Drug Vinnie 00 form: LIQ, Q6H, Dosing Weight 75.909, kg, PRN as needed for loose stool, Start date: 10/15/13 11:59:00, Duration: 30 day, Stop date: 11/14/13 11:58:00 loperamide 2013-0 No Howard 1 mg, 5 Mem oria 1-31 Fer mL, Route: l 17:59: Sebastian PO, Drug Lead 00 form: LIQ, Q6H, Dosing Weight 75.909, kg, PRN as needed for loose stool, Start date: 10/15/13 11:59:00, Duration: 30 day, Stop date: 11/14/13 11:58:00 loperamide 2013-0 No Howard 1 mg, 5 Mem oria 1-31 Fer mL, Route: l 17:59: Sebastian PO, Drug Lead 00 form: LIQ, Q6H, Dosing Weight 75.909, kg, PRN as needed for loose stool, Start date: 10/15/13 11:59:00, Duration: 30 day, Stop date: 11/14/13 11:58:00 loperamide 2013-0 No Howard 1 mg, 5 Mem oria 1-31 Fer mL, Route: l 17:59: Sebastian PO, Drug Vinnie 00 form: LIQ, Q6H, Dosing Weight 75.909, kg, PRN as needed for loose stool, Start date: 10/15/13 11:59:00, Duration: 30 day, Stop date: 11/14/13 11:58:00 loperamide 2013-0 No Howard 1 mg, 5 Mem oria 1-31 Fer mL, Route: l 17:59: Sebastian PO, Drug Lead 00 form: LIQ, Q6H, Dosing Weight 75.909, kg, PRN as needed for loose stool, Start date: 10/15/13 11:59:00, Duration: 30 day, Stop date: 11/14/13 11:58:00 loperamide 2013-0 No Howard 1 mg, 5 Mem oria 1-31 Fer mL, Route: l 17:59: Sebastian PO, Drug Lead 00 form: LIQ, Q6H, Dosing Weight 75.909, kg, PRN as needed for loose stool, Start date: 10/15/13 11:59:00, Duration: 30 day, Stop date: 11/14/13 11:58:00 loperamide 2013-0 No Howard 1 mg, 5 Mem oria 1-31 Fer mL, Route: l 17:59: Sebastian PO, Drug Vinnie 00 form: LIQ, Q6H, Dosing Weight 75.909, kg, PRN as needed for loose stool, Start date: 10/15/13 11:59:00, Duration: 30 day, Stop date: 11/14/13 11:58:00 loperamide 2013-0 No Howard 1 mg, 5 Mem oria 1-31 Fer mL, Route: l 17:59: Sebastian PO, Drug Lead 00 form: LIQ, Q6H, Dosing Weight 75.909, kg, PRN as needed for loose stool, Start date: 10/15/13 11:59:00, Duration: 30 day, Stop date: 11/14/13 11:58:00 loperamide 2013-0 No Howard 1 mg, 5 Mem oria 1-31 Fer mL, Route: l 17:59: Sebastian PO, Drug Vinnie 00 form: LIQ, Q6H, Dosing Weight 75.909, kg, PRN as needed for loose stool, Start date: 10/15/13 11:59:00, Duration: 30 day, Stop date: 11/14/13 11:58:00 loperamide 2013-0 No Howard 1 mg, 5 Mem oria 1-31 Fer mL, Route: l 17:59: Sebastian PO, Drug Vinnie 00 form: LIQ, Q6H, Dosing Weight 75.909, kg, PRN as needed for loose stool, Start date: 10/15/13 11:59:00, Duration: 30 day, Stop date: 11/14/13 11:58:00 loperamide 2013-0 No Howard 1 mg, 5 Mem oria 1-31 Fer mL, Route: l 17:59: Sebastian PO, Drug Lead 00 form: LIQ, Q6H, Dosing Weight 75.909, kg, PRN as needed for loose stool, Start date: 10/15/13 11:59:00, Duration: 30 day, Stop date: 11/14/13 11:58:00 loperamide 2013-0 No Howard 1 mg, 5 Mem oria 1-31 Fer mL, Route: l 17:59: Sebastian PO, Drug Lead 00 form: LIQ, Q6H, Dosing Weight 75.909, kg, PRN as needed for loose stool, Start date: 10/15/13 11:59:00, Duration: 30 day, Stop date: 11/14/13 11:58:00 loperamide 2013-0 No Howard 1 mg, 5 Mem oria 1-31 Fer mL, Route: l 17:59: Sebastian PO, Drug Lead 00 form: LIQ, Q6H, Dosing Weight 75.909, kg, PRN as needed for loose stool, Start date: 10/15/13 11:59:00, Duration: 30 day, Stop date: 11/14/13 11:58:00 loperamide 2013-0 No Howard 1 mg, 5 Mem oria 1-31 Fer mL, Route: l 17:59: Sebastian PO, Drug Lead 00 form: LIQ, Q6H, Dosing Weight 75.909, kg, PRN as needed for loose stool, Start date: 10/15/13 11:59:00, Duration: 30 day, Stop date: 11/14/13 11:58:00 loperamide 2013-0 No Howard 1 mg, 5 Mem oria 1-31 Fer mL, Route: l 17:59: Sebastian PO, Drug Vinnie 00 form: LIQ, Q6H, Dosing Weight 75.909, kg, PRN as needed for loose stool, Start date: 10/15/13 11:59:00, Duration: 30 day, Stop date: 11/14/13 11:58:00 loperamide 2013-0 No Howard 1 mg, 5 Mem oria 1-31 Fer mL, Route: l 17:59: Sebastian PO, Drug Lead 00 form: LIQ, Q6H, Dosing Weight 75.909, kg, PRN as needed for loose stool, Start date: 10/15/13 11:59:00, Duration: 30 day, Stop date: 11/14/13 11:58:00 loperamide 2013-0 No Howard 1 mg, 5 Mem oria 1-31 Fer mL, Route: l 17:59: Sebastian PO, Drug Lead 00 form: LIQ, Q6H, Dosing Weight 75.909, kg, PRN as needed for loose stool, Start date: 10/15/13 11:59:00, Duration: 30 day, Stop date: 11/14/13 11:58:00 loperamide 2013-0 No Howard 1 mg, 5 Mem oria 1-31 Fer mL, Route: l 17:59: Sebastian PO, Drug Lead 00 form: LIQ, Q6H, Dosing Weight 75.909, kg, PRN as needed for loose stool, Start date: 10/15/13 11:59:00, Duration: 30 day, Stop date: 11/14/13 11:58:00 loperamide 2013-0 No Howard 1 mg, 5 Mem oria 1-31 Fer mL, Route: l 17:59: Sebastian PO, Drug Lead 00 form: LIQ, Q6H, Dosing Weight 75.909, kg, PRN as needed for loose stool, Start date: 10/15/13 11:59:00, Duration: 30 day, Stop date: 11/14/13 11:58:00 loperamide 2013-0 No Howard 2 mg, 1 Mem oria 1-31 Fer cap, l 16:42: Sebastian Route: PO, Salma nn 00 Drug form: CAP, Q6H, Dosing Weight 75.909, kg, PRN as needed for loose stool, Start date: 10/15/13 10:42:00, Duration: 30 day, Stop date: 11/14/13 10:41:00(S sharron as: Imodium) MAX adult dose is 8 caps/day loperamide 0 No Howard 2 mg, 1 Mem oria 1-31 Fer cap, l 16:42: Sebastian Route: PO, Salma nn 00 Drug form: CAP, Q6H, Dosing Weight 75.909, kg, PRN as needed for loose stool, Start date: 10/15/13 10:42:00, Duration: 30 day, Stop date: 11/14/13 10:41:00(S sharron as: Imodium) MAX adult dose is 8 caps/day loperamide No Howard 2 mg, 1 Mem oria 1-31 Fer cap, l 16:42: Sebastian Route: PO, Salma nn 00 Drug form: CAP, Q6H, Dosing Weight 75.909, kg, PRN as needed for loose stool, Start date: 10/15/13 10:42:00, Duration: 30 day, Stop date: 11/14/13 10:41:00(S sharron as: Imodium) MAX adult dose is 8 caps/day loperamide No Howard 2 mg, 1 Mem oria 1-31 Fer cap, l 16:42: Sebastian Route: PO, Salma nn 00 Drug form: CAP, Q6H, Dosing Weight 75.909, kg, PRN as needed for loose stool, Start date: 10/15/13 10:42:00, Duration: 30 day, Stop date: 11/14/13 10:41:00(S sharron as: Imodium) MAX adult dose is 8 caps/day loperamide No Howard 2 mg, 1 Mem oria 1-31 Fer cap, l 16:42: Sebastian Route: PO, Salma nn 00 Drug form: CAP, Q6H, Dosing Weight 75.909, kg, PRN as needed for loose stool, Start date: 10/15/13 10:42:00, Duration: 30 day, Stop date: 11/14/13 10:41:00(S sharron as: Imodium) MAX adult dose is 8 caps/day loperamide 0 No Howard 2 mg, 1 Mem oria 1-31 Fer cap, l 16:42: Sebastian Route: PO, Salma nn 00 Drug form: CAP, Q6H, Dosing Weight 75.909, kg, PRN as needed for loose stool, Start date: 10/15/13 10:42:00, Duration: 30 day, Stop date: 11/14/13 10:41:00(S sharron as: Imodium) MAX adult dose is 8 caps/day loperamide 0 No Howard 2 mg, 1 Mem oria 10-15 Fer cap, l 16:42: Sebastian Route: PO, Salma nn 00 Drug form: CAP, Q6H, Dosing Weight 75.909, kg, PRN as needed for loose stool, Start date: 10/15/13 10:42:00, Duration: 30 day, Stop date: 11/14/13 10:41:00(S sharron as: Imodium) MAX adult dose is 8 caps/day loperamide No Howard 2 mg, 1 Mem oria 10-15 Fer cap, l 16:42: Sebastian Route: PO, Salma nn 00 Drug form: CAP, Q6H, Dosing Weight 75.909, kg, PRN as needed for loose stool, Start date: 10/15/13 10:42:00, Duration: 30 day, Stop date: 11/14/13 10:41:00(S sharron as: Imodium) MAX adult dose is 8 caps/day loperamide 2013-0 No Howard 2 mg, 1 Mem oria 31 Fer cap, l 16:42: Sebastian Route: PO, Salma nn 00 Drug form: CAP, Q6H, Dosing Weight 75.909, kg, PRN as needed for loose stool, Start date: 10/15/13 10:42:00, Duration: 30 day, Stop date: 11/14/13 10:41:00(S sharron as: Imodium) MAX adult dose is 8 caps/day loperamide 2013-0 No Howard 2 mg, 1 Mem oria -31 Fer cap, l 16:42: Sebastian Route: PO, Salma nn 00 Drug form: CAP, Q6H, Dosing Weight 75.909, kg, PRN as needed for loose stool, Start date: 10/15/13 10:42:00, Duration: 30 day, Stop date: 11/14/13 10:41:00(S sharron as: Imodium) MAX adult dose is 8 caps/day loperamide No Howard 2 mg, 1 Mem oria 1-31 Fer cap, l 16:42: Sebastian Route: PO, Salma nn 00 Drug form: CAP, Q6H, Dosing Weight 75.909, kg, PRN as needed for loose stool, Start date: 10/15/13 10:42:00, Duration: 30 day, Stop date: 11/14/13 10:41:00(S sharron as: Imodium) MAX adult dose is 8 caps/day loperamide No Howard 2 mg, 1 Mem oria -31 Fer cap, l 16:42: Sebastian Route: PO, Salma nn 00 Drug form: CAP, Q6H, Dosing Weight 75.909, kg, PRN as needed for loose stool, Start date: 10/15/13 10:42:00, Duration: 30 day, Stop date: 11/14/13 10:41:00(S sharron as: Imodium) MAX adult dose is 8 caps/day loperamide No Howard 2 mg, 1 Mem oria -31 Fer cap, l 16:42: Sebastian Route: PO, Salma nn 00 Drug form: CAP, Q6H, Dosing Weight 75.909, kg, PRN as needed for loose stool, Start date: 10/15/13 10:42:00, Duration: 30 day, Stop date: 11/14/13 10:41:00(S sharron as: Imodium) MAX adult dose is 8 caps/day loperamide No Howard 2 mg, 1 Mem oria 1-31 Fer cap, l 16:42: Sebastian Route: PO, Salma nn 00 Drug form: CAP, Q6H, Dosing Weight 75.909, kg, PRN as needed for loose stool, Start date: 10/15/13 10:42:00, Duration: 30 day, Stop date: 11/14/13 10:41:00(S sharron as: Imodium) MAX adult dose is 8 caps/day loperamide No Howard 2 mg, 1 Mem oria 1-31 Fer cap, l 16:42: Sebastian Route: PO, Salma nn 00 Drug form: CAP, Q6H, Dosing Weight 75.909, kg, PRN as needed for loose stool, Start date: 10/15/13 10:42:00, Duration: 30 day, Stop date: 11/14/13 10:41:00(S sharron as: Imodium) MAX adult dose is 8 caps/day loperamide 0 No Howard 2 mg, 1 Mem oria -31 Fer cap, l 16:42: Sebastian Route: PO, Salma nn 00 Drug form: CAP, Q6H, Dosing Weight 75.909, kg, PRN as needed for loose stool, Start date: 10/15/13 10:42:00, Duration: 30 day, Stop date: 11/14/13 10:41:00(S sharron as: Imodium) MAX adult dose is 8 caps/day loperamide No Howard 2 mg, 1 Mem oria 10-15 Fer cap, l 16:42: Sebastian Route: PO, Salma nn 00 Drug form: CAP, Q6H, Dosing Weight 75.909, kg, PRN as needed for loose stool, Start date: 10/15/13 10:42:00, Duration: 30 day, Stop date: 11/14/13 10:41:00(S sharron as: Imodium) MAX adult dose is 8 caps/day loperamide 2013-0 No Howard 2 mg, 1 Mem oria -31 Fer cap, l 16:42: Sebastian Route: PO, Salma nn 00 Drug form: CAP, Q6H, Dosing Weight 75.909, kg, PRN as needed for loose stool, Start date: 10/15/13 10:42:00, Duration: 30 day, Stop date: 11/14/13 10:41:00(S sharron as: Imodium) MAX adult dose is 8 caps/day loperamide 2013-0 No Howard 2 mg, 1 Mem oria -31 Fer cap, l 16:42: Sebastian Route: PO, Salma nn 00 Drug form: CAP, Q6H, Dosing Weight 75.909, kg, PRN as needed for loose stool, Start date: 10/15/13 10:42:00, Duration: 30 day, Stop date: 11/14/13 10:41:00(S sharron as: Imodium) MAX adult dose is 8 caps/day loperamide No Howard 2 mg, 1 Mem oria 1-31 Fer cap, l 16:42: Sebastian Route: PO, Salma nn 00 Drug form: CAP, Q6H, Dosing Weight 75.909, kg, PRN as needed for loose stool, Start date: 10/15/13 10:42:00, Duration: 30 day, Stop date: 11/14/13 10:41:00(S sharron as: Imodium) MAX adult dose is 8 caps/day loperamide No Howard 2 mg, 1 Mem oria -31 Fer cap, l 16:42: Sebastian Route: PO, Salma nn 00 Drug form: CAP, Q6H, Dosing Weight 75.909, kg, PRN as needed for loose stool, Start date: 10/15/13 10:42:00, Duration: 30 day, Stop date: 11/14/13 10:41:00(S sharron as: Imodium) MAX adult dose is 8 caps/day loperamide No Howard 2 mg, 1 Mem oria -31 Fer cap, l 16:42: Sebastian Route: PO, Salma nn 00 Drug form: CAP, Q6H, Dosing Weight 75.909, kg, PRN as needed for loose stool, Start date: 10/15/13 10:42:00, Duration: 30 day, Stop date: 11/14/13 10:41:00(S sharron as: Imodium) MAX adult dose is 8 caps/day loperamide No Howard 2 mg, 1 Mem oria 1-31 Fer cap, l 16:42: Sebastian Route: PO, Salma nn 00 Drug form: CAP, Q6H, Dosing Weight 75.909, kg, PRN as needed for loose stool, Start date: 10/15/13 10:42:00, Duration: 30 day, Stop date: 11/14/13 10:41:00(S sharron as: Imodium) MAX adult dose is 8 caps/day loperamide No Howard 2 mg, 1 Mem oria 1-31 Fer cap, l 16:42: Sebatsian Route: PO, Salma nn 00 Drug form: CAP, Q6H, Dosing Weight 75.909, kg, PRN as needed for loose stool, Start date: 10/15/13 10:42:00, Duration: 30 day, Stop date: 11/14/13 10:41:00(S sharron as: Imodium) MAX adult dose is 8 caps/day loperamide No Howard 2 mg, 1 Mem oria 10-15 Fer cap, l 16:42: Sebastian Route: PO, Salma nn 00 Drug form: CAP, Q6H, Dosing Weight 75.909, kg, PRN as needed for loose stool, Start date: 10/15/13 10:42:00, Duration: 30 day, Stop date: 11/14/13 10:41:00(S sharron as: Imodium) MAX adult dose is 8 caps/day loperamide No Howard 2 mg, 1 Mem oria 10-15 Fer cap, l 16:42: Sebastian Route: PO, Salma nn 00 Drug form: CAP, Q6H, Dosing Weight 75.909, kg, PRN as needed for loose stool, Start date: 10/15/13 10:42:00, Duration: 30 day, Stop date: 11/14/13 10:41:00(S sharron as: Imodium) MAX adult dose is 8 caps/day loperamide No Howard 2 mg, 1 Mem oria - Fer cap, l 16:42: Sebastian Route: PO, Salma nn 00 Drug form: CAP, Q6H, Dosing Weight 75.909, kg, PRN as needed for loose stool, Start date: 10/15/13 10:42:00, Duration: 30 day, Stop date: 11/14/13 10:41:00(S sharron as: Imodium) MAX adult dose is 8 caps/day warfarin No Howard 7.5 mg, 1 Mem oria 30 Fer tab, l 23:00: Sebastian Route: PO, Salma nn 00 Drug form: TAB, Q5PM, Dosing Weight 75.909, kg, Start date: 10/14/13 17:00:00, Duration: 1 doses or times, Stop date: 10/14/13 17:00:00Nu rse to ensure documentat ion of patient education per anticoagul ation policy. Avoid large intake of vitamin-K containing foods diet. (Same As: Coumadin) warfarin No Howard 7.5 mg, 1 Mem oria -30 Fer tab, l 23:00: Sebastian Route: PO, Salma nn 00 Drug form: TAB, Q5PM, Dosing Weight 75.909, kg, Start date: 10/14/13 17:00:00, Duration: 1 doses or times, Stop date: 10/14/13 17:00:00Nu rse to ensure documentat ion of patient education per anticoagul ation policy. Avoid large intake of vitamin-K containing foods diet. (Same As: Coumadin) warfarin No Howard 7.5 mg, 1 Mem oria 30 Fer tab, l 23:00: Sebastian Route: PO, Salma nn 00 Drug form: TAB, Q5PM, Dosing Weight 75.909, kg, Start date: 10/14/13 17:00:00, Duration: 1 doses or times, Stop date: 10/14/13 17:00:00Nu rse to ensure documentat ion of patient education per anticoagul ation policy. Avoid large intake of vitamin-K containing foods diet. (Same As: Coumadin) warfarin No Howard 7.5 mg, 1 Mem oria 30 Fer tab, l 23:00: Sebastian Route: PO, Salma nn 00 Drug form: TAB, Q5PM, Dosing Weight 75.909, kg, Start date: 10/14/13 17:00:00, Duration: 1 doses or times, Stop date: 10/14/13 17:00:00Nu rse to ensure documentat ion of patient education per anticoagul ation policy. Avoid large intake of vitamin-K containing foods diet. (Same As: Coumadin) warfarin No Howard 7.5 mg, 1 Mem oria 30 Fer tab, l 23:00: Sebastian Route: PO, Salma nn 00 Drug form: TAB, Q5PM, Dosing Weight 75.909, kg, Start date: 10/14/13 17:00:00, Duration: 1 doses or times, Stop date: 10/14/13 17:00:00Nu rse to ensure documentat ion of patient education per anticoagul ation policy. Avoid large intake of vitamin-K containing foods diet. (Same As: Coumadin) warfarin No Howard 7.5 mg, 1 Mem oria -30 Fer tab, l 23:00: Sebastian Route: PO, Salma nn 00 Drug form: TAB, Q5PM, Dosing Weight 75.909, kg, Start date: 10/14/13 17:00:00, Duration: 1 doses or times, Stop date: 10/14/13 17:00:00Nu rse to ensure documentat ion of patient education per anticoagul ation policy. Avoid large intake of vitamin-K containing foods diet. (Same As: Coumadin) warfarin No Howard 7.5 mg, 1 Mem oria -30 Fer tab, l 23:00: Sebastian Route: PO, Salma nn 00 Drug form: TAB, Q5PM, Dosing Weight 75.909, kg, Start date: 10/14/13 17:00:00, Duration: 1 doses or times, Stop date: 10/14/13 17:00:00Nu rse to ensure documentat ion of patient education per anticoagul ation policy. Avoid large intake of vitamin-K containing foods diet. (Same As: Coumadin) warfarin No Howard 7.5 mg, 1 Mem oria -30 Fer tab, l 23:00: Sebastian Route: PO, Salma nn 00 Drug form: TAB, Q5PM, Dosing Weight 75.909, kg, Start date: 10/14/13 17:00:00, Duration: 1 doses or times, Stop date: 10/14/13 17:00:00Nu rse to ensure documentat ion of patient education per anticoagul ation policy. Avoid large intake of vitamin-K containing foods diet. (Same As: Coumadin) warfarin No Howard 7.5 mg, 1 Mem oria -30 Fer tab, l 23:00: Sebastian Route: PO, Salma nn 00 Drug form: TAB, Q5PM, Dosing Weight 75.909, kg, Start date: 10/14/13 17:00:00, Duration: 1 doses or times, Stop date: 10/14/13 17:00:00Nu rse to ensure documentat ion of patient education per anticoagul ation policy. Avoid large intake of vitamin-K containing foods diet. (Same As: Coumadin) warfarin No Howard 7.5 mg, 1 Mem oria -30 Fer tab, l 23:00: Sebastian Route: PO, [...] No Howard 7.5 mg, 1 Mem oria 30 Fer tab, l 23:00: Sebastian Route: PO, Salma nn 00 Drug form: TAB, Q5PM, Dosing Weight 75.909, kg, Start date: 10/14/13 17:00:00, Duration: 1 doses or times, Stop date: 10/14/13 17:00:00Nu rse to ensure documentat ion of patient education per anticoagul ation policy. Avoid large intake of vitamin-K containing foods diet. (Same As: Coumadin) warfarin No Howard 7.5 mg, 1 Mem oria 30 Fer tab, l 23:00: Sebastian Route: PO, Salma nn 00 Drug form: TAB, Q5PM, Dosing Weight 75.909, kg, Start date: 10/14/13 17:00:00, Duration: 1 doses or times, Stop date: 10/14/13 17:00:00Nu rse to ensure documentat ion of patient education per anticoagul ation policy. Avoid large intake of vitamin-K containing foods diet. (Same As: Coumadin) warfarin No Howard 7.5 mg, 1 Mem oria -30 Fer tab, l 23:00: Sebastian Route: PO, Salma nn 00 Drug form: TAB, Q5PM, Dosing Weight 75.909, kg, Start date: 10/14/13 17:00:00, Duration: 1 doses or times, Stop date: 10/14/13 17:00:00Nu rse to ensure documentat ion of patient education per anticoagul ation policy. Avoid large intake of vitamin-K containing foods diet. (Same As: Coumadin) warfarin No Howard 7.5 mg, 1 Mem oria 30 Fer tab, l 23:00: Sebastian Route: PO, Salma nn 00 Drug form: TAB, Q5PM, Dosing Weight 75.909, kg, Start date: 10/14/13 17:00:00, Duration: 1 doses or times, Stop date: 10/14/13 17:00:00Nu rse to ensure documentat ion of patient education per anticoagul ation policy. Avoid large intake of vitamin-K containing foods diet. (Same As: Coumadin) warfarin No Howard 7.5 mg, 1 Mem oria -30 Fer tab, l 23:00: Sebastian Route: PO, Salma nn 00 Drug form: TAB, Q5PM, Dosing Weight 75.909, kg, Start date: 10/14/13 17:00:00, Duration: 1 doses or times, Stop date: 10/14/13 17:00:00Nu rse to ensure documentat ion of patient education per anticoagul ation policy. Avoid large intake of vitamin-K containing foods diet. (Same As: Coumadin) warfarin No Howard 7.5 mg, 1 Mem oria 30 Fer tab, l 23:00: Sebastian Route: PO, Salma nn 00 Drug form: TAB, Q5PM, Dosing Weight 75.909, kg, Start date: 10/14/13 17:00:00, Duration: 1 doses or times, Stop date: 10/14/13 17:00:00Nu rse to ensure documentat ion of patient education per anticoagul ation policy. Avoid large intake of vitamin-K containing foods diet. (Same As: Coumadin) warfarin No Howard 7.5 mg, 1 Mem oria 30 Fer tab, l 23:00: Sebastian Route: PO, [...] No Howard 7.5 mg, 1 Mem oria 30 Fer tab, l 23:00: Sebastian Route: PO, Salma nn 00 Drug form: TAB, Q5PM, Dosing Weight 75.909, kg, Start date: 10/14/13 17:00:00, Duration: 1 doses or times, Stop date: 10/14/13 17:00:00Nu rse to ensure documentat ion of patient education per anticoagul ation policy. Avoid large intake of vitamin-K containing foods diet. (Same As: Coumadin) warfarin No Howard 7.5 mg, 1 Mem oria 30 Fer tab, l 23:00: Sebastian Route: PO, [...] No Howard 7.5 mg, 1 Mem oria 30 Fer tab, l 23:00: Sebastian Route: PO, Salma nn 00 Drug form: TAB, Q5PM, Dosing Weight 75.909, kg, Start date: 10/14/13 17:00:00, Duration: 1 doses or times, Stop date: 10/14/13 17:00:00Nu rse to ensure documentat ion of patient education per anticoagul ation policy. Avoid large intake of vitamin-K containing foods diet. (Same As: Coumadin) warfarin No Howard 7.5 mg, 1 Mem oria 30 Fer tab, l 23:00: Sebastian Route: PO, Salma nn 00 Drug form: TAB, Q5PM, Dosing Weight 75.909, kg, Start date: 10/14/13 17:00:00, Duration: 1 doses or times, Stop date: 10/14/13 17:00:00Nu rse to ensure documentat ion of patient education per anticoagul ation policy. Avoid large intake of vitamin-K containing foods diet. (Same As: Coumadin) warfarin No Howard 7.5 mg, 1 Mem oria 30 Fer tab, l 23:00: Sebastian Route: PO, [...] No Howard 7.5 mg, 1 Mem oria 1-29 Fer tab, l 23:00: Sebastian Route: PO, Salma nn 00 Drug form: TAB, Q5PM, Dosing Weight 75.909, kg, Start date: 10/13/13 17:00:00, Duration: 1 doses or times, Stop date: 10/13/13 17:00:00Nu rse to ensure documentat ion of patient education per [facility] policy. Avoid large intake of vitamin-K containing foods diet. (Same As: Coumadin) Pulmicort Yes 180 Memoria Flexhaler 1-29 microgram l 180 mcg/inh 18:10: = 1 Leland n inhalation 00 inhalation powder , INHALATION , BID, 0 Refill(s) Pulmicort Yes 180 Memoria Flexhaler 1-29 microgram l 180 mcg/inh 18:10: = 1 Leland n inhalation 00 inhalation powder , INHALATION , BID, 0 Refill(s) Pulmicort Yes 180 Memoria Flexhaler 1-29 microgram l 180 mcg/inh 18:10: = 1 Leland n inhalation 00 inhalation powder , INHALATION , BID, 0 Refill(s) Pulmicort Yes 180 Memoria Flexhaler 1-29 microgram l 180 mcg/inh 18:10: = 1 Leland n inhalation 00 inhalation powder , INHALATION , BID, 0 Refill(s) Pulmicort Yes 180 Memoria Flexhaler 1-29 microgram l 180 mcg/inh 18:10: = 1 Leland n inhalation 00 inhalation powder , INHALATION , BID, 0 Refill(s) Pulmicort Yes 180 Memoria Flexhaler 1-29 microgram l 180 mcg/inh 18:10: = 1 Leland n inhalation 00 inhalation powder , INHALATION , BID, 0 Refill(s) Pulmicort Yes 180 Memoria Flexhaler 1-29 microgram l 180 mcg/inh 18:10: = 1 Leland n inhalation 00 inhalation powder , INHALATION , BID, 0 Refill(s) Pulmicort Yes 180 Memoria Flexhaler 1-29 microgram l 180 mcg/inh 18:10: = 1 Leland n inhalation 00 inhalation powder , INHALATION , BID, 0 Refill(s) Pulmicort Yes 180 Memoria Flexhaler 1-29 microgram l 180 mcg/inh 18:10: = 1 Leland n inhalation 00 inhalation powder , INHALATION , BID, 0 Refill(s) Pulmicort Yes 180 Memoria Flexhaler 1-29 microgram l 180 mcg/inh 18:10: = 1 Leland n inhalation 00 inhalation powder , INHALATION , BID, 0 Refill(s) Pulmicort Yes 180 Memoria Flexhaler 1-29 microgram l 180 mcg/inh 18:10: = 1 Leland n inhalation inhalation powder , INHALATION , BID, 0 Refill(s) Pulmicort Yes 180 Memoria Flexhaler 1-29 microgram l 180 mcg/inh 18:10: = 1 Leland n inhalation inhalation powder , INHALATION , BID, 0 Refill(s) Pulmicort Yes 180 Memoria Flexhaler 1-29 microgram l 180 mcg/inh 18:10: = 1 Leland n inhalation inhalation powder , INHALATION , BID, 0 Refill(s) Pulmicort Yes 180 Memoria Flexhaler 1-29 microgram l 180 mcg/inh 18:10: = 1 Leland n inhalation 00 inhalation powder , INHALATION , BID, 0 Refill(s) Pulmicort Yes 180 Memoria Flexhaler 1-29 microgram l 180 mcg/inh 18:10: = 1 Leland n inhalation inhalation powder , INHALATION , BID, 0 Refill(s) Pulmicort Yes 180 Memoria Flexhaler 1-29 microgram l 180 mcg/inh 18:10: = 1 Leland n inhalation inhalation powder , INHALATION , BID, 0 Refill(s) Pulmicort Yes 180 Memoria Flexhaler 1-29 microgram l 180 mcg/inh 18:10: = 1 Leland n inhalation 00 inhalation powder , INHALATION , BID, 0 Refill(s) Pulmicort Yes 180 Memoria Flexhaler 1-29 microgram l 180 mcg/inh 18:10: = 1 Leland n inhalation inhalation powder , INHALATION , BID, 0 Refill(s) Pulmicort Yes 180 Memoria Flexhaler 1-29 microgram l 180 mcg/inh 18:10: = 1 Leland n inhalation inhalation powder , INHALATION , BID, 0 Refill(s) Pulmicort Yes 180 Memoria Flexhaler 1-29 microgram l 180 mcg/inh 18:10: = 1 Leland n inhalation 00 inhalation powder , INHALATION , BID, 0 Refill(s) Pulmicort Yes 180 Memoria Flexhaler 1-29 microgram l 180 mcg/inh 18:10: = 1 Leland n inhalation 00 inhalation powder , INHALATION , BID, 0 Refill(s) Pulmicort Yes 180 Memoria Flexhaler 1-29 microgram l 180 mcg/inh 18:10: = 1 Leland n inhalation 00 inhalation powder , INHALATION , BID, 0 Refill(s) Pulmicort Yes 180 Memoria Flexhaler 1-29 microgram l 180 mcg/inh 18:10: = 1 Leland n inhalation 00 inhalation powder , INHALATION , BID, 0 Refill(s) Pulmicort Yes 180 Memoria Flexhaler 1-29 microgram l 180 mcg/inh 18:10: = 1 Leland n inhalation 00 inhalation powder , INHALATION , BID, 0 Refill(s) Pulmicort Yes 180 Memoria Flexhaler 1-29 microgram l 180 mcg/inh 18:10: = 1 Leland n inhalation 00 inhalation powder , INHALATION , BID, 0 Refill(s) Pulmicort Yes 180 Memoria Flexhaler 1-29 microgram l 180 mcg/inh 18:10: = 1 Leland n inhalation 00 inhalation powder , INHALATION , BID, 0 Refill(s) Pulmicort Yes 180 Memoria Flexhaler 1-29 microgram l 180 mcg/inh 18:10: = 1 Leland n inhalation 00 inhalation powder , INHALATION , BID, 0 Refill(s) acetaminoph No 500 mg, Mem oria en - PO, l 18:08: Bedtime, 0 Vinnie 00 Refill(s) ascorbic Yes 500 mg, Memori a acid - PO, Daily, l 18:08: 0 Vinnie 00 Refill(s) acetaminoph No 500 mg, Mem oria en - PO, l 18:08: Bedtime, 0 Lead 00 Refill(s) ascorbic Yes 500 mg, Memori a acid - PO, Daily, l 18:08: 0 Lead 00 Refill(s) acetaminoph 2014-0 No 500 mg, Mem oria en 1-29 PO, l 18:08: Bedtime, 0 Vinnie 00 Refill(s) ascorbic 2013-0 Yes 500 mg, Memori a acid 1-29 PO, Daily, l 18:08: 0 Vinnie 00 Refill(s) acetaminoph 0 No 500 mg, Mem oria en 1-29 PO, l 18:08: Bedtime, 0 Lead 00 Refill(s) ascorbic 2013-0 Yes 500 mg, Memori a acid 1-29 PO, Daily, l 18:08: 0 Ivnnie 00 Refill(s) acetaminoph 0 No 500 mg, Mem oria en 1-29 PO, l 18:08: Bedtime, 0 Lead 00 Refill(s) ascorbic 2013-0 Yes 500 mg, Memori a acid 1-29 PO, Daily, l 18:08: 0 Lead 00 Refill(s) acetaminoph No 500 mg, Mem oria en - PO, l 18:08: Bedtime, 0 Vinnie 00 Refill(s) ascorbic 2013-0 Yes 500 mg, Memori a acid 1-29 PO, Daily, l 18:08: 0 Vinnie 00 Refill(s) acetaminoph No 500 mg, Mem oria en 1-29 PO, l 18:08: Bedtime, 0 Lead 00 Refill(s) ascorbic 2013-0 Yes 500 mg, Memori a acid 1-29 PO, Daily, l 18:08: 0 Vinnie 00 Refill(s) acetaminoph 0 No 500 mg, Mem oria en - PO, l 18:08: Bedtime, 0 Vinnie 00 Refill(s) ascorbic 2013-0 Yes 500 mg, Memori a acid 1-29 PO, Daily, l 18:08: 0 Lead 00 Refill(s) acetaminoph 0 No 500 mg, Mem oria en 1-29 PO, l 18:08: Bedtime, 0 Vinnie 00 Refill(s) ascorbic 2013-0 Yes 500 mg, Memori a acid 1-29 PO, Daily, l 18:08: 0 Vinnie 00 Refill(s) acetaminoph 0 No 500 mg, Mem oria en 1-29 PO, l 18:08: Bedtime, 0 Lead 00 Refill(s) ascorbic 2013-0 Yes 500 mg, Memori a acid 1-29 PO, Daily, l 18:08: 0 Lead 00 Refill(s) acetaminoph 0 No 500 mg, Mem oria en -29 PO, l 18:08: Bedtime, 0 Vinnie 00 Refill(s) ascorbic 2013-0 Yes 500 mg, Memori a acid 1-29 PO, Daily, l 18:08: 0 Lead 00 Refill(s) acetaminoph 0 No 500 mg, Mem oria en -29 PO, l 18:08: Bedtime, 0 Lead 00 Refill(s) ascorbic 2013-0 Yes 500 mg, Memori a acid 1-29 PO, Daily, l 18:08: 0 Vinnie 00 Refill(s) acetaminoph 0 No 500 mg, Mem oria en -29 PO, l 18:08: Bedtime, 0 Vinnie 00 Refill(s) ascorbic 2013-0 Yes 500 mg, Memori a acid -29 PO, Daily, l 18:08: 0 Vinnie 00 Refill(s) acetaminoph 0 No 500 mg, Mem oria en -29 PO, l 18:08: Bedtime, 0 Lead 00 Refill(s) ascorbic 2013-0 Yes 500 mg, Memori a acid 1-29 PO, Daily, l 18:08: 0 Lead 00 Refill(s) acetaminoph 0 No 500 mg, Mem oria en - PO, l 18:08: Bedtime, 0 Lead 00 Refill(s) ascorbic 2013-0 Yes 500 mg, Memori a acid 1-29 PO, Daily, l 18:08: 0 Lead 00 Refill(s) acetaminoph 0 No 500 mg, Mem oria en -29 PO, l 18:08: Bedtime, 0 Lead 00 Refill(s) ascorbic 2013-0 Yes 500 mg, Memori a acid 1-29 PO, Daily, l 18:08: 0 Vinnie 00 Refill(s) acetaminoph 0 No 500 mg, Mem oria en -29 PO, l 18:08: Bedtime, 0 Vinnie 00 Refill(s) ascorbic 2013-0 Yes 500 mg, Memori a acid 1-29 PO, Daily, l 18:08: 0 Vinnie 00 Refill(s) acetaminoph No 500 mg, Mem oria en 1-29 PO, l 18:08: Bedtime, 0 Lead 00 Refill(s) ascorbic 2013-0 Yes 500 mg, Memori a acid 1-29 PO, Daily, l 18:08: 0 Vinnie 00 Refill(s) acetaminoph No 500 mg, Mem oria en 1-29 PO, l 18:08: Bedtime, 0 Lead 00 Refill(s) ascorbic 0 Yes 500 mg, Memori a acid 1-29 PO, Daily, l 18:08: 0 Vinnie 00 Refill(s) acetaminoph 0 No 500 mg, Mem oria en 1-29 PO, l 18:08: Bedtime, 0 Vinnie 00 Refill(s) ascorbic 0 Yes 500 mg, Memori a acid 1-29 PO, Daily, l 18:08: 0 Lead 00 Refill(s) acetaminoph 0 No 500 mg, Mem oria en 1-29 PO, l 18:08: Bedtime, 0 Lead 00 Refill(s) ascorbic 0 Yes 500 mg, Memori a acid 1-29 PO, Daily, l 18:08: 0 Vinnie 00 Refill(s) acetaminoph 0 No 500 mg, Mem oria en 1-29 PO, l 18:08: Bedtime, 0 Lead 00 Refill(s) ascorbic 0 Yes 500 mg, Memori a acid 1-29 PO, Daily, l 18:08: 0 Lead 00 Refill(s) acetaminoph 0 No 500 mg, Mem oria en 1-29 PO, l 18:08: Bedtime, 0 Vinnie 00 Refill(s) ascorbic 2013-0 Yes 500 mg, Memori a acid 1-29 PO, Daily, l 18:08: 0 Lead 00 Refill(s) acetaminoph 0 No 500 mg, Mem oria en 1-29 PO, l 18:08: Bedtime, 0 Vinnie 00 Refill(s) ascorbic 2013-0 Yes 500 mg, Memori a acid 1-29 PO, Daily, l 18:08: 0 Refill(s) acetaminoph No 500 mg, Mem oria en 10-13 PO, l 18:08: Bedtime, 0 Refill(s) ascorbic Yes 500 mg, Memori a acid 10-13 PO, Daily, l 18:08: 0 Refill(s) acetaminoph No 500 mg, Mem oria en 10-13 PO, l 18:08: Bedtime, 0 Refill(s) ascorbic Yes 500 mg, Memori a acid 10-13 PO, Daily, l 18:08: 0 Refill(s) acetaminoph No 500 mg, Mem oria en 10-13 PO, l 18:08: Bedtime, 0 Refill(s) ascorbic Yes 500 mg, Memori a acid 10-13 PO, Daily, l 18:08: 0 Refill(s) cranberry Yes 1 tab, PO, Me moria oral tablet 10-13 Daily, 0 l 18:06: Refill(s) garlic Yes 1 tab, PO, Memor ia 10-13 Daily, 0 l 18:06: Refill(s) multivitami Yes 1 tab, PO, Memoria n 10-13 Daily, 0 l 18:06: Refill(s) cranberry Yes 1 tab, PO, Me moria oral tablet 10-13 Daily, 0 l 18:06: Refill(s) garlic Yes 1 tab, PO, Memor ia 10-13 Daily, 0 l 18:06: Refill(s) multivitami Yes 1 tab, PO, Memoria n 10-13 Daily, 0 l 18:06: Refill(s) cranberry Yes 1 tab, PO, Me moria oral tablet 10-13 Daily, 0 l 18:06: Refill(s) garlic Yes 1 tab, PO, Memor ia 10-13 Daily, 0 l 18:06: Refill(s) multivitami Yes 1 tab, PO, Memoria n - Daily, 0 l 18:06: Refill(s) cranberry Yes 1 tab, PO, Me moria oral tablet 10-13 Daily, 0 l 18:06: Refill(s) garlic Yes 1 tab, PO, Memor ia 10-13 Daily, 0 l 18:06: Refill(s) multivitami Yes 1 tab, PO, Memoria n - Daily, 0 l 18:06: Refill(s) cranberry Yes 1 tab, PO, Me moria oral tablet 10-13 Daily, 0 l 18:06: Refill(s) garlic Yes 1 tab, PO, Memor ia 10-13 Daily, 0 l 18:06: Refill(s) multivitami Yes 1 tab, PO, Memoria n 10-13 Daily, 0 l 18:06: Refill(s) cranberry Yes 1 tab, PO, Me moria oral tablet 10-13 Daily, 0 l 18:06: Refill(s) garlic Yes 1 tab, PO, Memor ia 10-13 Daily, 0 l 18:06: Refill(s) multivitami Yes 1 tab, PO, Memoria n - Daily, 0 l 18:06: Refill(s) cranberry Yes 1 tab, PO, Me moria oral tablet 10-13 Daily, 0 l 18:06: Refill(s) garlic Yes 1 tab, PO, Memor ia 10-13 Daily, 0 l 18:06: Refill(s) multivitami Yes 1 tab, PO, Memoria n - Daily, 0 l 18:06: Refill(s) cranberry Yes 1 tab, PO, Me moria oral tablet 10-13 Daily, 0 l 18:06: Refill(s) garlic Yes 1 tab, PO, Memor ia 10-13 Daily, 0 l 18:06: Refill(s) multivitami Yes 1 tab, PO, Memoria n - Daily, 0 l 18:06: Refill(s) cranberry Yes 1 tab, PO, Me moria oral tablet 10-13 Daily, 0 l 18:06: Refill(s) garlic Yes 1 tab, PO, Memor ia 10-13 Daily, 0 l 18:06: Refill(s) multivitami Yes 1 tab, PO, Memoria n - Daily, 0 l 18:06: Refill(s) cranberry Yes 1 tab, PO, Me moria oral tablet 10-13 Daily, 0 l 18:06: Refill(s) garlic Yes 1 tab, PO, Memor ia 10-13 Daily, 0 l 18:06: Refill(s) multivitami Yes 1 tab, PO, Memoria n - Daily, 0 l 18:06: Refill(s) cranberry Yes 1 tab, PO, Me moria oral tablet 10-13 Daily, 0 l 18:06: Refill(s) garlic Yes 1 tab, PO, Memor ia 10-13 Daily, 0 l 18:06: Refill(s) multivitami Yes 1 tab, PO, Memoria n - Daily, 0 l 18:06: Refill(s) cranberry Yes 1 tab, PO, Me moria oral tablet 10-13 Daily, 0 l 18:06: Refill(s) garlic Yes 1 tab, PO, Memor ia 10-13 Daily, 0 l 18:06: Refill(s) multivitami Yes 1 tab, PO, Memoria n - Daily, 0 l 18:06: Refill(s) cranberry Yes 1 tab, PO, Me moria oral tablet 10-13 Daily, 0 l 18:06: Refill(s) garlic Yes 1 tab, PO, Memor ia 10-13 Daily, 0 l 18:06: Refill(s) multivitami Yes 1 tab, PO, Memoria n - Daily, 0 l 18:06: Refill(s) cranberry Yes 1 tab, PO, Me moria oral tablet 10-13 Daily, 0 l 18:06: Refill(s) garlic Yes 1 tab, PO, Memor ia 10-13 Daily, 0 l 18:06: Refill(s) multivitami Yes 1 tab, PO, Memoria n - Daily, 0 l 18:06: Refill(s) cranberry Yes 1 tab, PO, Me moria oral tablet 10-13 Daily, 0 l 18:06: Refill(s) garlic Yes 1 tab, PO, Memor ia 10-13 Daily, 0 l 18:06: Refill(s) multivitami Yes 1 tab, PO, Memoria n 10-13 Daily, 0 l 18:06: Refill(s) cranberry Yes 1 tab, PO, Me moria oral tablet 10-13 Daily, 0 l 18:06: Refill(s) garlic Yes 1 tab, PO, Memor ia 10-13 Daily, 0 l 18:06: Refill(s) multivitami Yes 1 tab, PO, Memoria n 10-13 Daily, 0 l 18:06: Refill(s) cranberry Yes 1 tab, PO, Me moria oral tablet 10-13 Daily, 0 l 18:06: Refill(s) garlic Yes 1 tab, PO, Memor ia 10-13 Daily, 0 l 18:06: Refill(s) multivitami Yes 1 tab, PO, Memoria n - Daily, 0 l 18:06: Refill(s) cranberry Yes 1 tab, PO, Me moria oral tablet 10-13 Daily, 0 l 18:06: Refill(s) garlic Yes 1 tab, PO, Memor ia Daily, 0 l 18:06: Refill(s) multivitami Yes 1 tab, PO, Memoria n - Daily, 0 l 18:06: Refill(s) cranberry Yes 1 tab, PO, Me moria oral tablet 10-13 Daily, 0 l 18:06: Refill(s) garlic Yes 1 tab, PO, Memor ia 10-13 Daily, 0 l 18:06: Refill(s) multivitami Yes 1 tab, PO, Memoria n - Daily, 0 l 18:06: Refill(s) cranberry Yes 1 tab, PO, Me moria oral tablet 10-13 Daily, 0 l 18:06: Refill(s) garlic Yes 1 tab, PO, Memor ia 10-13 Daily, 0 l 18:06: Refill(s) multivitami Yes 1 tab, PO, Memoria n - Daily, 0 l 18:06: Refill(s) cranberry Yes 1 tab, PO, Me moria oral tablet 10-13 Daily, 0 l 18:06: Refill(s) garlic Yes 1 tab, PO, Memor ia 10-13 Daily, 0 l 18:06: Refill(s) multivitami Yes 1 tab, PO, Memoria n - Daily, 0 l 18:06: Refill(s) cranberry Yes 1 tab, PO, Me moria oral tablet 10-13 Daily, 0 l 18:06: Refill(s) garlic Yes 1 tab, PO, Memor ia 10-13 Daily, 0 l 18:06: Refill(s) multivitami Yes 1 tab, PO, Memoria n - Daily, 0 l 18:06: Refill(s) cranberry Yes 1 tab, PO, Me moria oral tablet 10-13 Daily, 0 l 18:06: Refill(s) garlic Yes 1 tab, PO, Memor ia - Daily, 0 l 18:06: Refill(s) multivitami Yes 1 tab, PO, Memoria n - Daily, 0 l 18:06: Refill(s) cranberry Yes 1 tab, PO, Me moria oral tablet 10-13 Daily, 0 l 18:06: Refill(s) garlic Yes 1 tab, PO, Memor ia 10-13 Daily, 0 l 18:06: Refill(s) multivitami Yes 1 tab, PO, Memoria n 10-13 Daily, 0 l 18:06: Refill(s) cranberry Yes 1 tab, PO, Me moria oral tablet 10-13 Daily, 0 l 18:06: Refill(s) garlic Yes 1 tab, PO, Memor ia 10-13 Daily, 0 l 18:06: Refill(s) multivitami Yes 1 tab, PO, Memoria n - Daily, 0 l 18:06: Refill(s) cranberry Yes 1 tab, PO, Me moria oral tablet 10-13 Daily, 0 l 18:06: Refill(s) garlic Yes 1 tab, PO, Memor ia 10-13 Daily, 0 l 18:06: Refill(s) multivitami Yes 1 tab, PO, Memoria n - Daily, 0 l 18:06: Refill(s) cranberry Yes 1 tab, PO, Me moria oral tablet 10-13 Daily, 0 l 18:06: Refill(s) garlic Yes 1 tab, PO, Memor ia 10-13 Daily, 0 l 18:06: Refill(s) multivitami Yes 1 tab, PO, Memoria n - Daily, 0 l 18:06: Refill(s) warfarin No Howard 7.5 mg, 1 Mem [...] Mem oria 10-12 Fer tab, l 23:00: Sebatsian Route: PO, Salma nn 00 Drug form: [...] 17:32: Sebastian Route: PO, He rmann capsule 00 Drug form: CAP, BID, Dosing Weight 78.182, kg, PRN as needed for constipati on, Start date: 10/12/13 11:32:00, Duration: 30 day, Stop date: 11/11/13 11:31:00(S sharron as: Colace) (Do Not Crush) docusate No Howard 100 mg, 1 Mem oria sodium 100 10-12 Fer cap, l mg oral 17:32: Sebastian Route: PO, He rmann capsule 00 Drug form: CAP, BID, Dosing Weight 78.182, kg, PRN as needed for constipati on, Start date: 10/12/13 11:32:00, Duration: 30 day, Stop date: 11/11/13 11:31:00(S sharron as: Colace) (Do Not Crush) docusate No Howard 100 mg, 1 Mem oria sodium 100 - Fer cap, l mg oral 17:32: Sebastian Route: PO, He rmann capsule 00 Drug form: CAP, BID, Dosing Weight 78.182, kg, PRN as needed for constipati on, Start date: 10/12/13 11:32:00, Duration: 30 day, Stop date: 11/11/13 11:31:00(S sharron as: Colace) (Do Not Crush) docusate No Howard 100 mg, 1 Mem oria sodium 100 10-12 Fer cap, l mg oral 17:32: Sebastian Route: PO, He rmann capsule 00 Drug form: CAP, BID, Dosing Weight 78.182, kg, PRN as needed for constipati on, Start date: 10/12/13 11:32:00, Duration: 30 day, Stop date: 11/11/13 11:31:00(S sharron as: Colace) (Do Not Crush) docusate No Howard 100 mg, 1 Mem oria sodium 100 10-12 Fer cap, l mg oral 17:32: Sebastian Route: PO, He rmann capsule 00 Drug form: CAP, BID, Dosing Weight 78.182, kg, PRN as needed for constipati on, Start date: 10/12/13 11:32:00, Duration: 30 day, Stop date: 11/11/13 11:31:00(S sharron as: Colace) (Do Not Crush) docusate No Howard 100 mg, 1 Mem oria sodium 100 10-12 Fer cap, l mg oral 17:32: Sebastian Route: PO, He rmann capsule 00 Drug form: CAP, BID, Dosing Weight 78.182, kg, PRN as needed for constipati on, Start date: 10/12/13 11:32:00, Duration: 30 day, Stop date: 11/11/13 11:31:00(S sharron as: Colace) (Do Not Crush) docusate No Howard 100 mg, 1 Mem oria sodium 100 -28 Fer cap, l mg oral 17:32: Sebastian Route: PO, He rmann capsule 00 Drug form: CAP, BID, Dosing Weight 78.182, kg, PRN as needed for constipati on, Start date: 10/12/13 11:32:00, Duration: 30 day, Stop date: 11/11/13 11:31:00(S sharron as: Colace) (Do Not Crush) [facility] No Howard 100 mg, 1 Mem oria sodium 100 -28 Fer cap, l mg oral 17:32: Sebastian Route: PO, He rmann capsule 00 Drug form: CAP, BID, Dosing Weight 78.182, kg, PRN as needed for constipati on, Start date: 10/12/13 11:32:00, Duration: 30 day, Stop date: 11/11/13 11:31:00(S sharron as: Colace) (Do Not Crush) [facility] No Howard 100 mg, 1 Mem oria sodium 100 - Fer cap, l mg oral 17:32: Sebastian Route: PO, He rmann capsule 00 Drug form: CAP, BID, Dosing Weight 78.182, kg, PRN as needed for constipati on, Start date: 10/12/13 11:32:00, Duration: 30 day, Stop date: 11/11/13 11:31:00(S sharron as: Colace) (Do Not Crush) [facility] No Howard 100 mg, 1 Mem oria sodium 100 - Fer cap, l mg oral 17:32: Sebastian Route: PO, He rmann capsule 00 Drug form: CAP, BID, Dosing Weight 78.182, kg, PRN as needed for constipati on, Start date: 10/12/13 11:32:00, Duration: 30 day, Stop date: 11/11/13 11:31:00(S sharron as: Colace) (Do Not Crush) [facility] No Howard 100 mg, 1 Mem oria sodium 100 -28 Fer cap, l mg oral 17:32: Sebastian Route: PO, He rmann capsule 00 Drug form: CAP, BID, Dosing Weight 78.182, kg, PRN as needed for constipati on, Start date: 10/12/13 11:32:00, Duration: 30 day, Stop date: 11/11/13 11:31:00(S sharron as: Colace) (Do Not Crush) docusate No Howard 100 mg, 1 Mem oria sodium 100 - Fer cap, l mg oral 17:32: Sebastian Route: PO, He rmann capsule 00 Drug form: CAP, BID, Dosing Weight 78.182, kg, PRN as needed for constipati on, Start date: 10/12/13 11:32:00, Duration: 30 day, Stop date: 11/11/13 11:31:00(S sharron as: Colace) (Do Not Crush) docusate No Howard 100 mg, 1 Mem oria sodium 100 - Fer cap, l mg oral 17:32: Sebastian Route: PO, He rmann capsule 00 Drug form: CAP, BID, Dosing Weight 78.182, kg, PRN as needed for constipati on, Start date: 10/12/13 11:32:00, Duration: 30 day, Stop date: 11/11/13 11:31:00(S sharron as: Colace) (Do Not Crush) docusate No Howard 100 mg, 1 Mem oria sodium 100 10-12 Fer cap, l mg oral 17:32: Sebastian Route: PO, He rmann capsule 00 Drug form: CAP, BID, Dosing Weight 78.182, kg, PRN as needed for constipati on, Start date: 10/12/13 11:32:00, Duration: 30 day, Stop date: 11/11/13 11:31:00(S sharron as: Colace) (Do Not Crush) docusate No Howard 100 mg, 1 Mem oria sodium 100 - Fer cap, l mg oral 17:32: Sebastian Route: PO, He rmann capsule 00 Drug form: CAP, BID, Dosing Weight 78.182, kg, PRN as needed for constipati on, Start date: 10/12/13 11:32:00, Duration: 30 day, Stop date: 11/11/13 11:31:00(S sharron as: Colace) (Do Not Crush) docusate No Howard 100 mg, 1 Mem oria sodium 100 -28 Fer cap, l mg oral 17:32: Sebastian Route: PO, He rmann capsule 00 Drug form: CAP, BID, Dosing Weight 78.182, kg, PRN as needed for constipati on, Start date: 10/12/13 11:32:00, Duration: 30 day, Stop date: 11/11/13 11:31:00(S sharron as: Colace) (Do Not Crush) docusate No Howard 100 mg, 1 Mem oria sodium 100 -28 Fer cap, l mg oral 17:32: Sebastian Route: PO, He rmann capsule 00 Drug form: CAP, BID, Dosing Weight 78.182, kg, PRN as needed for constipati on, Start date: 10/12/13 11:32:00, Duration: 30 day, Stop date: 11/11/13 11:31:00(S sharron as: Colace) (Do Not Crush) [facility] No Howard 100 mg, 1 Mem oria sodium 100 - Fer cap, l mg oral 17:32: Sebastian Route: PO, He rmann capsule 00 Drug form: CAP, BID, Dosing Weight 78.182, kg, PRN as needed for constipati on, Start date: 10/12/13 11:32:00, Duration: 30 day, Stop date: 11/11/13 11:31:00(S sharron as: Colace) (Do Not Crush) [facility] No Howard 100 mg, 1 Mem oria sodium 100 - Fer cap, l mg oral 17:32: Sebastian Route: PO, He rmann capsule 00 Drug form: CAP, BID, Dosing Weight 78.182, kg, PRN as needed for constipati on, Start date: 10/12/13 11:32:00, Duration: 30 day, Stop date: 11/11/13 11:31:00(S sharron as: Colace) (Do Not Crush) docusate No Howard 100 mg, 1 Mem oria sodium 100 -28 Fer cap, l mg oral 17:32: Sebastian Route: PO, He rmann capsule 00 Drug form: CAP, BID, Dosing Weight 78.182, kg, PRN as needed for constipati on, Start date: 10/12/13 11:32:00, Duration: 30 day, Stop date: 11/11/13 11:31:00(S sharron as: Colace) (Do Not Crush) docusate No Howard 100 mg, 1 Mem oria sodium 100 1-28 Fer cap, l mg oral 17:32: Sebastian Route: PO, He rmann capsule 00 Drug form: CAP, BID, Dosing Weight 78.182, kg, PRN as needed for constipati on, Start date: 10/12/13 11:32:00, Duration: 30 day, Stop date: 11/11/13 11:31:00(S sharron as: Colace) (Do Not Crush) docusate No Howard 100 mg, 1 Mem oria sodium 100 -28 Fer cap, l mg oral 17:32: Sebastian Route: PO, He rmann capsule 00 Drug form: CAP, BID, Dosing Weight 78.182, kg, PRN as needed for constipati on, Start date: 10/12/13 11:32:00, Duration: 30 day, Stop date: 11/11/13 11:31:00(S sharron as: Colace) (Do Not Crush) [facility] Howard 100 mg, 1 Mem oria sodium 100 -28 Fer cap, l mg oral 17:32: Sebastian Route: PO, He rmann capsule 00 Drug form: CAP, BID, Dosing Weight 78.182, kg, PRN as needed for constipati on, Start date: 10/12/13 11:32:00, Duration: 30 day, Stop date: 11/11/13 11:31:00(S sharron as: Colace) (Do Not Crush) docusate No Howard 100 mg, 1 Mem oria sodium 100 -28 Fer cap, l mg oral 17:32: Sebastian Route: PO, He rmann capsule 00 Drug form: CAP, BID, Dosing Weight 78.182, kg, PRN as needed for constipati on, Start date: 10/12/13 11:32:00, Duration: 30 day, Stop date: 11/11/13 11:31:00(S sharron as: Colace) (Do Not Crush) docusate No Howard 100 mg, 1 Mem oria sodium 100 - Fer cap, l mg oral 17:32: Sebastian Route: PO, He rmann capsule 00 Drug form: CAP, BID, Dosing Weight 78.182, kg, PRN as needed for constipati on, Start date: 10/12/13 11:32:00, Duration: 30 day, Stop date: 11/11/13 11:31:00(S sharron as: Colace) (Do Not Crush) docusate No Howard 100 mg, 1 Mem oria sodium 100 10-12 Fer cap, l mg oral 17:32: Sebastian Route: PO, He rmann capsule 00 Drug form: CAP, BID, Dosing Weight 78.182, kg, PRN as needed for constipati on, Start date: 10/12/13 11:32:00, Duration: 30 day, Stop date: 11/11/13 11:31:00(S sharron as: Colace) (Do Not Crush) docusate No Howard 100 mg, 1 Mem oria sodium 100 10-12 Fer cap, l mg oral 17:32: Sebastian Route: PO, He rmann capsule 00 [...] me as: Glucotrol) 30 min before meals. glipiZIDE No Howard 5 mg, 1 Semaj shashi -28 Fer tab, l 13:30: Sebastian Route: PO, Salma nn 00 Drug form: TAB, Before Breakfast, Dosing Weight 75.909, kg, Start date: 10/12/13 7:30:00, Duration: 30 day, Stop date: 11/10/13 7:30:00(Sa me as: Glucotrol) 30 min before meals. glipiZIDE 2013- No Howard 5 mg, 1 Semaj shashi 10-12 Fer tab, l 13:30: Sebastian Route: PO, Salma nn 00 Drug form: TAB, Before Breakfast, Dosing Weight 75.909, kg, Start date: 10/12/13 7:30:00, Duration: 30 day, Stop date: 11/10/13 7:30:00(Sa me as: Glucotrol) 30 min before meals. glipiZIDE No Howard 5 mg, 1 Semaj shashi 10-12 Fer tab, l 13:30: Sebastian Route: PO, Salma nn 00 Drug form: TAB, Before Breakfast, Dosing Weight 75.909, kg, Start date: 10/12/13 7:30:00, Duration: 30 day, Stop date: 11/10/13 7:30:00(Sa me as: Glucotrol) 30 min before meals. glipiZIDE No Howard 5 mg, 1 Semaj shashi 10-12 Fer tab, l 13:30: Sebastian Route: PO, Salma nn 00 Drug form: TAB, Before Breakfast, Dosing Weight 75.909, kg, Start date: 10/12/13 7:30:00, Duration: 30 day, Stop date: 11/10/13 7:30:00(Sa me as: Glucotrol) 30 min before meals. glipiZIDE No Howard 5 mg, 1 Semaj shashi 10-12 Fer tab, l 13:30: Sebastian Route: PO, Salma nn 00 Drug form: TAB, Before Breakfast, Dosing Weight 75.909, kg, Start date: 10/12/13 7:30:00, Duration: 30 day, Stop date: 11/10/13 7:30:00(Sa me as: Glucotrol) 30 min before meals. glipiZIDE 2013- No Howard 5 mg, 1 Semaj shashi -28 Fer tab, l 13:30: Sebastian Route: PO, Salma nn 00 Drug form: TAB, Before Breakfast, Dosing Weight 75.909, kg, Start date: 10/12/13 7:30:00, Duration: 30 day, Stop date: 11/10/13 7:30:00(Sa me as: Glucotrol) 30 min before meals. glipiZIDE 2013- No Howard 5 mg, 1 Semaj shashi 10-12 Fer tab, l 13:30: Sebastian Route: PO, Salma nn 00 Drug form: TAB, Before Breakfast, Dosing Weight 75.909, kg, Start date: 10/12/13 7:30:00, Duration: 30 day, Stop date: 11/10/13 7:30:00(Sa me as: Glucotrol) 30 min before meals. glipiZIDE No Howard 5 mg, 1 Semaj shashi 10-12 Fer tab, l 13:30: Sebastian Route: PO, Salma nn 00 Drug form: TAB, Before Breakfast, Dosing Weight 75.909, kg, Start date: 10/12/13 7:30:00, Duration: 30 day, Stop date: 11/10/13 7:30:00(Sa me as: Glucotrol) 30 min before meals. glipiZIDE No Howard 5 mg, 1 Semaj shashi 10-12 Fer tab, l 13:30: Sebastian Route: PO, Salma nn 00 Drug form: TAB, Before Breakfast, Dosing Weight 75.909, kg, Start date: 10/12/13 7:30:00, Duration: 30 day, Stop date: 11/10/13 7:30:00(Sa me as: Glucotrol) 30 min before meals. glipiZIDE No Howard 5 mg, 1 Semaj shashi 10-12 Fer tab, l 13:30: Sebastian Route: PO, Salma nn 00 Drug form: TAB, Before Breakfast, Dosing Weight 75.909, kg, Start date: 10/12/13 7:30:00, Duration: 30 day, Stop date: 11/10/13 7:30:00(Sa me as: Glucotrol) 30 min before meals. glipiZIDE 2013- No Howard 5 mg, 1 Semaj shashi -28 Fer tab, l 13:30: Sebastian Route: PO, Salma nn 00 Drug form: TAB, Before Breakfast, Dosing Weight 75.909, kg, Start date: 10/12/13 7:30:00, Duration: 30 day, Stop date: 11/10/13 7:30:00(Sa me as: Glucotrol) 30 min before meals. glipiZIDE 2013- No Howard 5 mg, 1 Semaj shashi 10-12 Fer tab, l 13:30: Sebastian Route: PO, Salma nn 00 Drug form: TAB, Before Breakfast, Dosing Weight 75.909, kg, Start date: 10/12/13 7:30:00, Duration: 30 day, Stop date: 11/10/13 7:30:00(Sa me as: Glucotrol) 30 min before meals. glipiZIDE No Howard 5 mg, 1 Semaj shashi 10-12 Fer tab, l 13:30: Sebastian Route: PO, Salma nn 00 Drug form: TAB, Before Breakfast, Dosing Weight 75.909, kg, Start date: 10/12/13 7:30:00, Duration: 30 day, Stop date: 11/10/13 7:30:00(Sa me as: Glucotrol) 30 min before meals. glipiZIDE No Howard 5 mg, 1 Semaj shashi 10-12 Fer tab, l 13:30: Sebastian Route: PO, Salma nn 00 Drug form: TAB, Before Breakfast, Dosing Weight 75.909, kg, Start date: 10/12/13 7:30:00, Duration: 30 day, Stop date: 11/10/13 7:30:00(Sa me as: Glucotrol) 30 min before meals. glipiZIDE No Howard 5 mg, 1 Semaj shashi 10-12 Fer tab, l 13:30: Sebastian Route: PO, Salma nn 00 Drug form: TAB, Before Breakfast, Dosing Weight 75.909, kg, Start date: 10/12/13 7:30:00, Duration: 30 day, Stop date: 11/10/13 7:30:00(Sa me as: Glucotrol) 30 min before meals. glipiZIDE 2013- No Howard 5 mg, 1 Semaj shashi -28 Fer tab, l 13:30: Sebastian Route: PO, Salma nn 00 Drug form: TAB, Before Breakfast, Dosing Weight 75.909, kg, Start date: 10/12/13 7:30:00, Duration: 30 day, Stop date: 11/10/13 7:30:00(Sa me as: Glucotrol) 30 min before meals. glipiZIDE 2013- No Howard 5 mg, 1 Semaj shashi 10-12 Fer tab, l 13:30: Sebastian Route: PO, Salma nn 00 Drug form: TAB, Before Breakfast, Dosing Weight 75.909, kg, Start date: 10/12/13 7:30:00, Duration: 30 day, Stop date: 11/10/13 7:30:00(Sa me as: Glucotrol) 30 min before meals. glipiZIDE No Howard 5 mg, 1 Semaj shashi 10-12 Fer tab, l 13:30: Sebastian Route: PO, Salma nn 00 Drug form: TAB, Before Breakfast, Dosing Weight 75.909, kg, Start date: 10/12/13 7:30:00, Duration: 30 day, Stop date: 11/10/13 7:30:00(Sa me as: Glucotrol) 30 min before meals. glipiZIDE No Howard 5 mg, 1 Semaj shashi 10-12 Fer tab, l 13:30: Sebastian Route: PO, Salma nn 00 Drug form: TAB, Before Breakfast, Dosing Weight 75.909, kg, Start date: 10/12/13 7:30:00, Duration: 30 day, Stop date: 11/10/13 7:30:00(Sa me as: Glucotrol) 30 min before meals. glipiZIDE No Howard 5 mg, 1 Semaj shashi 10-12 Fer tab, l 13:30: Sebastian Route: PO, Salma nn 00 Drug form: TAB, Before Breakfast, Dosing Weight 75.909, kg, Start date: 10/12/13 7:30:00, Duration: 30 day, Stop date: 11/10/13 7:30:00(Sa me as: Glucotrol) 30 min before meals. glipiZIDE 2013- No Howard 5 mg, 1 Semaj shashi -28 Fer tab, l 13:30: Sebastian Route: PO, Salma nn 00 Drug form: TAB, Before Breakfast, Dosing Weight 75.909, kg, Start date: 10/12/13 7:30:00, Duration: 30 day, Stop date: 11/10/13 7:30:00(Sa me as: Glucotrol) 30 min before meals. glipiZIDE 2013- No Howard 5 mg, 1 Semaj shashi 10-12 Fer tab, l 13:30: Sebastian Route: PO, Salma nn 00 Drug form: TAB, Before Breakfast, Dosing Weight 75.909, kg, Start date: 10/12/13 7:30:00, Duration: 30 day, Stop date: 11/10/13 7:30:00(Sa me as: Glucotrol) 30 min before meals. glipiZIDE No Howard 5 mg, 1 Semaj shashi 10-12 Fer tab, l 13:30: Sebastian Route: PO, Salma nn 00 Drug form: TAB, Before Breakfast, Dosing Weight 75.909, kg, Start date: 10/12/13 7:30:00, Duration: 30 day, Stop date: 11/10/13 7:30:00(Sa me as: Glucotrol) 30 min before meals. glipiZIDE No Howard 5 mg, 1 Semaj shashi 10-12 Fer tab, l 13:30: Sebastian Route: PO, Salma nn 00 Drug form: TAB, Before Breakfast, Dosing Weight 75.909, kg, Start date: 10/12/13 7:30:00, Duration: 30 day, Stop date: 11/10/13 7:30:00(Sa me as: Glucotrol) 30 min before meals. glipiZIDE No Howard 5 mg, 1 Semaj shashi 10-12 Fer tab, l 13:30: Sebastian Route: PO, Salma nn 00 Drug form: TAB, Before Breakfast, Dosing Weight 75.909, kg, Start date: 10/12/13 7:30:00, Duration: 30 day, Stop date: 11/10/13 7:30:00(Sa me as: Glucotrol) 30 min before meals. glipiZIDE 2013- No Howard 5 mg, 1 Semaj shashi -28 Fer tab, l 13:30: Sebastian Route: PO, [...] No Howard 7.5 mg, 1 Mem oria 10-09 Fer tab, l 23:00: Sebastian Route: PO, Salma nn 00 Drug form: TAB, Q5PM, Dosing Weight 75.909, kg, Start date: 10/09/13 17:00:00, Duration: 1 doses or times, Stop date: 10/09/13 17:00:00Nu rse to ensure documentat ion of patient education per anticoagul ation policy. Avoid large intake of vitamin-K containing foods diet. (Same As: Coumadin) warfarin No Howard 7.5 mg, 1 Mem oria 10-09 Fer tab, l 23:00: Sebastian Route: PO, [...] No Howard 7.5 mg, 1 Mem oria -25 Fer tab, l 23:00: Sebastian Route: PO, Salma nn 00 Drug form: TAB, Q5PM, Dosing Weight 75.909, kg, Start date: 10/09/13 17:00:00, Duration: 1 doses or times, Stop date: 10/09/13 17:00:00Nu rse to ensure documentat ion of patient education per anticoagul ation policy. Avoid large intake of vitamin-K containing foods diet. (Same As: Coumadin) warfarin No Howard 7.5 mg, 1 Mem oria -25 Fer tab, l 23:00: Sebastian Route: PO, [...] No Howard 7.5 mg, 1 Mem oria -25 Fer tab, l 23:00: Sebastian Route: PO, Salma nn 00 Drug form: TAB, Q5PM, Dosing Weight 75.909, kg, Start date: 10/09/13 17:00:00, Duration: 1 doses or times, Stop date: 10/09/13 17:00:00Nu rse to ensure documentat ion of patient education per anticoagul ation policy. Avoid large intake of vitamin-K containing foods diet. (Same As: Coumadin) warfarin No Howard 7.5 mg, 1 Mem oria -25 Fer tab, l 23:00: Sebastian Route: PO, Salma nn 00 Drug form: TAB, Q5PM, Dosing Weight 75.909, kg, Start date: 10/09/13 17:00:00, Duration: 1 doses or times, Stop date: 10/09/13 17:00:00Nu rse to ensure documentat ion of patient education per anticoagul ation policy. Avoid large intake of vitamin-K containing foods diet. (Same As: Coumadin) warfarin No Howard 7.5 mg, 1 Mem oria -25 Fer tab, l 23:00: Sebastian Route: PO, [...] No Howard 7.5 mg, 1 Mem oria -25 Fer tab, l 23:00: Sebastian Route: PO, Salma nn 00 Drug form: TAB, Q5PM, Dosing Weight 75.909, kg, Start date: 10/09/13 17:00:00, Duration: 1 doses or times, Stop date: 10/09/13 17:00:00Nu rse to ensure documentat ion of patient education per anticoagul ation policy. Avoid large intake of vitamin-K containing foods diet. (Same As: Coumadin) warfarin No Howard 7.5 mg, 1 Mem oria -25 Fer tab, l 23:00: Sebastian Route: PO, Salma nn 00 Drug form: TAB, Q5PM, Dosing Weight 75.909, kg, Start date: 10/09/13 17:00:00, Duration: 1 doses or times, Stop date: 10/09/13 17:00:00Nu rse to ensure documentat ion of patient education per anticoagul ation policy. Avoid large intake of vitamin-K containing foods diet. (Same As: Coumadin) warfarin No Howard 7.5 mg, 1 Mem oria 25 Fer tab, l 23:00: Sebastian Route: PO, Salma nn 00 Drug form: TAB, Q5PM, Dosing Weight 75.909, kg, Start date: 10/09/13 17:00:00, Duration: 1 doses or times, Stop date: 10/09/13 17:00:00Nu rse to ensure documentat ion of patient education per anticoagul ation policy. Avoid large intake of vitamin-K containing foods diet. (Same As: Coumadin) warfarin No Howard 7.5 mg, 1 Mem oria -25 Fer tab, l 23:00: Sebastian Route: PO, Salma nn 00 Drug form: TAB, Q5PM, Dosing Weight 75.909, kg, Start date: 10/09/13 17:00:00, Duration: 1 doses or times, Stop date: 10/09/13 17:00:00Nu rse to ensure documentat ion of patient education per anticoagul ation policy. Avoid large intake of vitamin-K containing foods diet. (Same As: Coumadin) warfarin No Howard 7.5 mg, 1 Mem oria -25 Fer tab, l 23:00: Sebastian Route: PO, Salma nn 00 Drug form: TAB, Q5PM, Dosing Weight 75.909, kg, Start date: 10/09/13 17:00:00, Duration: 1 doses or times, Stop date: 10/09/13 17:00:00Nu rse to ensure documentat ion of patient education per anticoagul ation policy. Avoid large intake of vitamin-K containing foods diet. (Same As: Coumadin) warfarin No Howard 7.5 mg, 1 Mem oria -25 Fer tab, l 23:00: Sebastian Route: PO, Salma nn 00 Drug form: TAB, Q5PM, Dosing Weight 75.909, kg, Start date: 10/09/13 17:00:00, Duration: 1 doses or times, Stop date: 10/09/13 17:00:00Nu rse to ensure documentat ion of patient education per anticoagul ation policy. Avoid large intake of vitamin-K containing foods diet. (Same As: Coumadin) warfarin No Howard 7.5 mg, 1 Mem oria -25 Fer tab, l 23:00: Sebastian Route: PO, Salma nn 00 Drug form: TAB, Q5PM, Dosing Weight 75.909, kg, Start date: 10/09/13 17:00:00, Duration: 1 doses or times, Stop date: 10/09/13 17:00:00Nu rse to ensure documentat ion of patient education per anticoagul ation policy. Avoid large intake of vitamin-K containing foods diet. (Same As: Coumadin) warfarin No Howard 7.5 mg, 1 Mem oria -25 Fer tab, l 23:00: Sebastian Route: PO, [...] No Howard 7.5 mg, 1 Mem oria -25 Fer tab, l 23:00: Sebastian Route: PO, [...] ensure documentat ion of patient education per [facility] policy. Avoid large intake of vitamin-K containing foods diet. (Same As: Coumadin) magnesium 0 No Howard 2 gm, 50 Mem oria sulfate 1-25 Fer mL, Route: l 22:02: Sebastian IVPB, Drug Salma nn 00 form: INJ, ONCE, Dosing Weight 75.909, kg, Total dose = 2 gm, Start date: 10/09/13 16:02:00, Duration: 1 doses or times, Stop date: 10/09/13 16:02:00 magnesium 2013-0 No Howard 2 gm, 50 Mem oria sulfate 1-25 Fer mL, Route: l 22:02: Sebastian IVPB, Drug Salma nn 00 form: INJ, ONCE, Dosing Weight 75.909, kg, Total dose = 2 gm, Start date: 10/09/13 16:02:00, Duration: 1 doses or times, Stop date: 10/09/13 16:02:00 magnesium 2013- No Howard 2 gm, 50 Mem oria sulfate 1-25 Fer mL, Route: l 22:02: Sebastian IVPB, Drug Salma nn 00 form: INJ, ONCE, Dosing Weight 75.909, kg, Total dose = 2 gm, Start date: 10/09/13 16:02:00, Duration: 1 doses or times, Stop date: 10/09/13 16:02:00 magnesium 2013-0 No Howard 2 gm, 50 Mem oria sulfate 1-25 Fer mL, Route: l 22:02: Sebastian IVPB, Drug Salma nn 00 form: INJ, ONCE, Dosing Weight 75.909, kg, Total dose = 2 gm, Start date: 10/09/13 16:02:00, Duration: 1 doses or times, Stop date: 10/09/13 16:02:00 magnesium 2013-0 No Howard 2 gm, 50 Mem oria sulfate 1-25 Fer mL, Route: l 22:02: Sebastian IVPB, Drug Salma nn 00 form: INJ, ONCE, Dosing Weight 75.909, kg, Total dose = 2 gm, Start date: 10/09/13 16:02:00, Duration: 1 doses or times, Stop date: 10/09/13 16:02:00 magnesium 2014-0 No Howard 2 gm, 50 Mem oria sulfate 1-25 Fer mL, Route: l 22:02: Sebastian IVPB, Drug Salma nn 00 form: INJ, ONCE, Dosing Weight 75.909, kg, Total dose = 2 gm, Start date: 10/09/13 16:02:00, Duration: 1 doses or times, Stop date: 10/09/13 16:02:00 magnesium 2014-0 No Howard 2 gm, 50 Mem oria sulfate 1-25 Fer mL, Route: l 22:02: Sebastian IVPB, Drug Salma nn 00 form: INJ, ONCE, Dosing Weight 75.909, kg, Total dose = 2 gm, Start date: 10/09/13 16:02:00, Duration: 1 doses or times, Stop date: 10/09/13 16:02:00 magnesium 2014-0 No Howard 2 gm, 50 Mem oria sulfate 1-25 Fer mL, Route: l 22:02: Sebatsian IVPB, Drug Salma nn 00 form: INJ, ONCE, Dosing Weight 75.909, kg, Total dose = 2 gm, Start date: 10/09/13 16:02:00, Duration: 1 doses or times, Stop date: 10/09/13 16:02:00 magnesium 2014-0 No Howard 2 gm, 50 Mem oria sulfate 1-25 Fer mL, Route: l 22:02: Sebastian IVPB, Drug Salma nn 00 form: INJ, ONCE, Dosing Weight 75.909, kg, Total dose = 2 gm, Start date: 10/09/13 16:02:00, Duration: 1 doses or times, Stop date: 10/09/13 16:02:00 magnesium 2014-0 No Howard 2 gm, 50 Mem oria sulfate 1-25 Fer mL, Route: l 22:02: Sebastian IVPB, Drug Salma nn 00 form: INJ, ONCE, Dosing Weight 75.909, kg, Total dose = 2 gm, Start date: 10/09/13 16:02:00, Duration: 1 doses or times, Stop date: 10/09/13 16:02:00 magnesium 2014-0 No Howard 2 gm, 50 Mem oria sulfate 1-25 Fer mL, Route: l 22:02: Sebastian IVPB, Drug Salma nn 00 form: INJ, ONCE, Dosing Weight 75.909, kg, Total dose = 2 gm, Start date: 10/09/13 16:02:00, Duration: 1 doses or times, Stop date: 10/09/13 16:02:00 magnesium 2014-0 No Howard 2 gm, 50 Mem oria sulfate 1-25 Fer mL, Route: l 22:02: Sebastian IVPB, Drug Salma nn 00 form: INJ, ONCE, Dosing Weight 75.909, kg, Total dose = 2 gm, Start date: 10/09/13 16:02:00, Duration: 1 doses or times, Stop date: 10/09/13 16:02:00 magnesium 2014-0 No Howard 2 gm, 50 Mem oria sulfate 1-25 Fer mL, Route: l 22:02: Sebastian IVPB, Drug Salma nn 00 form: INJ, ONCE, Dosing Weight 75.909, kg, Total dose = 2 gm, Start date: 10/09/13 16:02:00, Duration: 1 doses or times, Stop date: 10/09/13 16:02:00 magnesium 2014-0 No Howard 2 gm, 50 Mem oria sulfate 1-25 Fer mL, Route: l 22:02: Sebastian IVPB, Drug Salma nn 00 form: INJ, ONCE, Dosing Weight 75.909, kg, Total dose = 2 gm, Start date: 10/09/13 16:02:00, Duration: 1 doses or times, Stop date: 10/09/13 16:02:00 magnesium 2014-0 No Howard 2 gm, 50 Mem oria sulfate 1-25 Fer mL, Route: l 22:02: Sebastian IVPB, Drug Salma nn 00 form: INJ, ONCE, Dosing Weight 75.909, kg, Total dose = 2 gm, Start date: 10/09/13 16:02:00, Duration: 1 doses or times, Stop date: 10/09/13 16:02:00 magnesium 2014-0 No Howard 2 gm, 50 Mem oria sulfate 1-25 Fer mL, Route: l 22:02: Sebastian IVPB, Drug Salma nn 00 form: INJ, ONCE, Dosing Weight 75.909, kg, Total dose = 2 gm, Start date: 10/09/13 16:02:00, Duration: 1 doses or times, Stop date: 10/09/13 16:02:00 magnesium 2014-0 No Howard 2 gm, 50 Mem oria sulfate 1-25 Fer mL, Route: l 22:02: Sebastian IVPB, Drug Salma nn 00 form: INJ, ONCE, Dosing Weight 75.909, kg, Total dose = 2 gm, Start date: 10/09/13 16:02:00, Duration: 1 doses or times, Stop date: 10/09/13 16:02:00 magnesium 2014-0 No Howard 2 gm, 50 Mem oria sulfate 1-25 Fer mL, Route: l 22:02: Sebastian IVPB, Drug Salma nn 00 form: INJ, ONCE, Dosing Weight 75.909, kg, Total dose = 2 gm, Start date: 10/09/13 16:02:00, Duration: 1 doses or times, Stop date: 10/09/13 16:02:00 magnesium 2013-0 No Howard 2 gm, 50 Mem oria sulfate 1-25 Fer mL, Route: l 22:02: Sebastian IVPB, Drug Salma nn 00 form: INJ, ONCE, Dosing Weight 75.909, kg, Total dose = 2 gm, Start date: 10/09/13 16:02:00, Duration: 1 doses or times, Stop date: 10/09/13 16:02:00 magnesium 2014-0 No Howard 2 gm, 50 Mem oria sulfate 1-25 Fer mL, Route: l 22:02: Sebastian IVPB, Drug Salma nn 00 form: INJ, ONCE, Dosing Weight 75.909, kg, Total dose = 2 gm, Start date: 10/09/13 16:02:00, Duration: 1 doses or times, Stop date: 10/09/13 16:02:00 magnesium 2014-0 No Howard 2 gm, 50 Mem oria sulfate 1-25 Fer mL, Route: l 22:02: Sebastian IVPB, Drug Salma nn 00 form: INJ, ONCE, Dosing Weight 75.909, kg, Total dose = 2 gm, Start date: 10/09/13 16:02:00, Duration: 1 doses or times, Stop date: 10/09/13 16:02:00 magnesium 2014-0 No Howard 2 gm, 50 Mem oria sulfate 1-25 Fer mL, Route: l 22:02: Sebastian IVPB, Drug Salma nn 00 form: INJ, ONCE, Dosing Weight 75.909, kg, Total dose = 2 gm, Start date: 10/09/13 16:02:00, Duration: 1 doses or times, Stop date: 10/09/13 16:02:00 magnesium 2014-0 No Howard 2 gm, 50 Mem oria sulfate 1-25 Fer mL, Route: l 22:02: Sebastian IVPB, Drug Salma nn 00 form: INJ, ONCE, Dosing Weight 75.909, kg, Total dose = 2 gm, Start date: 10/09/13 16:02:00, Duration: 1 doses or times, Stop date: 10/09/13 16:02:00 magnesium 2014-0 No Howard 2 gm, 50 Mem oria sulfate 1-25 Fer mL, Route: l 22:02: Sebastian IVPB, Drug Salma nn 00 form: INJ, ONCE, Dosing Weight 75.909, kg, Total dose = 2 gm, Start date: 10/09/13 16:02:00, Duration: 1 doses or times, Stop date: 10/09/13 16:02:00 magnesium 2014-0 No Howard 2 gm, 50 Mem oria sulfate 1-25 Fer mL, Route: l 22:02: Sebastian IVPB, Drug Salma nn 00 form: INJ, ONCE, Dosing Weight 75.909, kg, Total dose = 2 gm, Start date: 10/09/13 16:02:00, Duration: 1 doses or times, Stop date: 10/09/13 16:02:00 magnesium 2014-0 No Howard 2 gm, 50 Mem oria sulfate 1-25 Fer mL, Route: l 22:02: Sebastian IVPB, Drug Salma nn 00 form: INJ, ONCE, Dosing Weight 75.909, kg, Total dose = 2 gm, Start date: 10/09/13 16:02:00, Duration: 1 doses or times, Stop date: 10/09/13 16:02:00 magnesium 2014-0 No Howard 2 gm, 50 Mem oria sulfate 1-25 Fer mL, Route: l 22:02: Sebastian IVPB, Drug Salma nn 00 form: INJ, ONCE, Dosing Weight 75.909, kg, Total dose = 2 gm, Start date: 10/09/13 16:02:00, Duration: 1 doses or times, Stop date: 10/09/13 16:02:00 magnesium 2014-0 No Howard 2 gm, 50 Mem oria sulfate 1-25 Fer mL, Route: l 21:45: Sebastian IVPB, Drug Salma nn 00 form: INJ, ONCE, Dosing Weight 75.909, kg, Total dose = 2 gm, Start date: 10/09/13 15:45:00, Duration: 1 doses or times, Stop date: 10/09/13 15:45:00 magnesium 2014-0 No Ho[place] 2 gm, 50 Mem oria sulfate 1-25 Fer mL, Route: l 21:45: Sebastian IVPB, Drug Salma nn 00 form: INJ, ONCE, Dosing Weight 75.909, kg, Total dose = 2 gm, Start date: 10/09/13 15:45:00, Duration: 1 doses or times, Stop date: 10/09/13 15:45:00 magnesium 2014-0 No Howard 2 gm, 50 Mem oria sulfate 1-25 Fer mL, Route: l 21:45: Sebastian IVPB, Drug Salma nn 00 form: INJ, ONCE, Dosing Weight 75.909, kg, Total dose = 2 gm, Start date: 10/09/13 15:45:00, Duration: 1 doses or times, Stop date: 10/09/13 15:45:00 magnesium 2014-0 No Howard 2 gm, 50 Mem oria sulfate 1-25 Fer mL, Route: l 21:45: Sebastian IVPB, Drug Salma nn 00 form: INJ, ONCE, Dosing Weight 75.909, kg, Total dose = 2 gm, Start date: 10/09/13 15:45:00, Duration: 1 doses or times, Stop date: 10/09/13 15:45:00 magnesium 2014-0 No Howard 2 gm, 50 Mem oria sulfate 1-25 Fer mL, Route: l 21:45: Sebastian IVPB, Drug Salma nn 00 form: INJ, ONCE, Dosing Weight 75.909, kg, Total dose = 2 gm, Start date: 10/09/13 15:45:00, Duration: 1 doses or times, Stop date: 10/09/13 15:45:00 magnesium 2014-0 No Howard 2 gm, 50 Mem oria sulfate 1-25 Fer mL, Route: l 21:45: Sebastian IVPB, Drug Salma nn 00 form: INJ, ONCE, Dosing Weight 75.909, kg, Total dose = 2 gm, Start date: 10/09/13 15:45:00, Duration: 1 doses or times, Stop date: 10/09/13 15:45:00 magnesium 2014-0 No Howard 2 gm, 50 Mem oria sulfate 1-25 Fer mL, Route: l 21:45: Sebastian IVPB, Drug Salma nn 00 form: INJ, ONCE, Dosing Weight 75.909, kg, Total dose = 2 gm, Start date: 10/09/13 15:45:00, Duration: 1 doses or times, Stop date: 10/09/13 15:45:00 magnesium 2014-0 No Howard 2 gm, 50 Mem oria sulfate 1-25 Fer mL, Route: l 21:45: Sebastian IVPB, Drug Salma nn 00 form: INJ, ONCE, Dosing Weight 75.909, kg, Total dose = 2 gm, Start date: 10/09/13 15:45:00, Duration: 1 doses or times, Stop date: 10/09/13 15:45:00 magnesium 2014-0 No Howard 2 gm, 50 Mem oria sulfate 1-25 Fer mL, Route: l 21:45: Sebastian IVPB, Drug Salma nn 00 form: INJ, ONCE, Dosing Weight 75.909, kg, Total dose = 2 gm, Start date: 10/09/13 15:45:00, Duration: 1 doses or times, Stop date: 10/09/13 15:45:00 magnesium 2014-0 No Howard 2 gm, 50 Mem oria sulfate 1-25 Fer mL, Route: l 21:45: Sebastian IVPB, Drug Salma nn 00 form: INJ, ONCE, Dosing Weight 75.909, kg, Total dose = 2 gm, Start date: 10/09/13 15:45:00, Duration: 1 doses or times, Stop date: 10/09/13 15:45:00 magnesium 2014-0 No Howard 2 gm, 50 Mem oria sulfate 1-25 Fer mL, Route: l 21:45: Sebastian IVPB, Drug Salma nn 00 form: INJ, ONCE, Dosing Weight 75.909, kg, Total dose = 2 gm, Start date: 10/09/13 15:45:00, Duration: 1 doses or times, Stop date: 10/09/13 15:45:00 magnesium 2013-0 No Howard 2 gm, 50 Mem oria sulfate 1-25 Fer mL, Route: l 21:45: Sebastian IVPB, Drug Salma nn 00 form: INJ, ONCE, Dosing Weight 75.909, kg, Total dose = 2 gm, Start date: 10/09/13 15:45:00, Duration: 1 doses or times, Stop date: 10/09/13 15:45:00 magnesium 2013-0 No Howard 2 gm, 50 Mem oria sulfate 1-25 Fer mL, Route: l 21:45: Sebastian IVPB, Drug Salma nn 00 form: INJ, ONCE, Dosing Weight 75.909, kg, Total dose = 2 gm, Start date: 10/09/13 15:45:00, Duration: 1 doses or times, Stop date: 10/09/13 15:45:00 magnesium 2013-0 No Howard 2 gm, 50 Mem oria sulfate 1-25 Fer mL, Route: l 21:45: Sebastian IVPB, Drug Salma nn 00 form: INJ, ONCE, Dosing Weight 75.909, kg, Total dose = 2 gm, Start date: 10/09/13 15:45:00, Duration: 1 doses or times, Stop date: 10/09/13 15:45:00 magnesium 2013-0 No Howard 2 gm, 50 Mem oria sulfate 1-25 Fer mL, Route: l 21:45: Sebastian IVPB, Drug Salma nn 00 form: INJ, ONCE, Dosing Weight 75.909, kg, Total dose = 2 gm, Start date: 10/09/13 15:45:00, Duration: 1 doses or times, Stop date: 10/09/13 15:45:00 magnesium 2013-0 No Howard 2 gm, 50 Mem oria sulfate 1-25 Fer mL, Route: l 21:45: Sebastian IVPB, Drug Salma nn 00 form: INJ, ONCE, Dosing Weight 75.909, kg, Total dose = 2 gm, Start date: 10/09/13 15:45:00, Duration: 1 doses or times, Stop date: 10/09/13 15:45:00 magnesium 2014-0 No Howard 2 gm, 50 Mem oria sulfate 1-25 Fer mL, Route: l 21:45: Sebastian IVPB, Drug Salma nn 00 form: INJ, ONCE, Dosing Weight 75.909, kg, Total dose = 2 gm, Start date: 10/09/13 15:45:00, Duration: 1 doses or times, Stop date: 10/09/13 15:45:00 magnesium 2014-0 No Howard 2 gm, 50 Mem oria sulfate 1-25 Fer mL, Route: l 21:45: Sebastian IVPB, Drug Salma nn 00 form: INJ, ONCE, Dosing Weight 75.909, kg, Total dose = 2 gm, Start date: 10/09/13 15:45:00, Duration: 1 doses or times, Stop date: 10/09/13 15:45:00 magnesium 2014-0 No Howard 2 gm, 50 Mem oria sulfate 1-25 Fer mL, Route: l 21:45: Sebastian IVPB, Drug Salma nn 00 form: INJ, ONCE, Dosing Weight 75.909, kg, Total dose = 2 gm, Start date: 10/09/13 15:45:00, Duration: 1 doses or times, Stop date: 10/09/13 15:45:00 magnesium 2014-0 No Howard 2 gm, 50 Mem oria sulfate 1-25 Fer mL, Route: l 21:45: Sebastian IVPB, Drug Salma nn 00 form: INJ, ONCE, Dosing Weight 75.909, kg, Total dose = 2 gm, Start date: 10/09/13 15:45:00, Duration: 1 doses or times, Stop date: 10/09/13 15:45:00 magnesium 2014-0 No Howard 2 gm, 50 Mem oria sulfate 1-25 Fer mL, Route: l 21:45: Sebastian IVPB, Drug Salma nn 00 form: INJ, ONCE, Dosing Weight 75.909, kg, Total dose = 2 gm, Start date: 10/09/13 15:45:00, Duration: 1 doses or times, Stop date: 10/09/13 15:45:00 magnesium 2014-0 No Howard 2 gm, 50 Mem oria sulfate 1-25 Fer mL, Route: l 21:45: Sebastian IVPB, Drug Salma nn 00 form: INJ, ONCE, Dosing Weight 75.909, kg, Total dose = 2 gm, Start date: 10/09/13 15:45:00, Duration: 1 doses or times, Stop date: 10/09/13 15:45:00 magnesium 2014-0 No Howard 2 gm, 50 Mem oria sulfate 1-25 Fer mL, Route: l 21:45: Sebastian IVPB, Drug Salma nn 00 form: INJ, ONCE, Dosing Weight 75.909, kg, Total dose = 2 gm, Start date: 10/09/13 15:45:00, Duration: 1 doses or times, Stop date: 10/09/13 15:45:00 magnesium 2014-0 No Howard 2 gm, 50 Mem oria sulfate 1-25 Fer mL, Route: l 21:45: Sebastian IVPB, Drug Salma nn 00 form: INJ, ONCE, Dosing Weight 75.909, kg, Total dose = 2 gm, Start date: 10/09/13 15:45:00, Duration: 1 doses or times, Stop date: 10/09/13 15:45:00 magnesium 2014-0 No Howard 2 gm, 50 Mem oria sulfate 1-25 Fer mL, Route: l 21:45: Sebastian IVPB, Drug Salma nn 00 form: INJ, ONCE, Dosing Weight 75.909, kg, Total dose = 2 gm, Start date: 10/09/13 15:45:00, Duration: 1 doses or times, Stop date: 10/09/13 15:45:00 magnesium 2014-0 No Howard 2 gm, 50 Mem oria sulfate 1-25 Fer mL, Route: l 21:45: Sebastian IVPB, Drug Salma nn 00 form: INJ, ONCE, Dosing Weight 75.909, kg, Total dose = 2 gm, Start date: 10/09/13 15:45:00, Duration: 1 doses or times, Stop date: 10/09/13 15:45:00 magnesium 2014-0 No Howard 2 gm, 50 Mem oria sulfate 1-25 Fer mL, Route: l 21:45: Sebastian IVPB, Drug Salma nn 00 form: INJ, ONCE, Dosing Weight 75.909, kg, Total dose = 2 gm, Start date: 10/09/13 15:45:00, Duration: 1 doses or times, Stop date: 10/09/13 15:45:00 tramadol 50 0 No Galilea 50 mg, 1 Memoria mg oral 1-25 Avis Stef tab, l tablet 10:24: Route: PO, Salma nn Drug form: TAB, Q4H, PRN Pain, Start date: 10/09/13 4:24:00, Duration: 30 day, Stop date: 11/08/13 4:23:00(Sa me As: Ultram) tramadol 50 2013-0 No Galilea 50 mg, 1 Memoria mg oral 1-25 Avis Stef tab, l tablet 10:24: Route: PO, Salma nn Drug form: TAB, Q4H, PRN Pain, Start date: 10/09/13 4:24:00, Duration: 30 day, Stop date: 11/08/13 4:23:00(Sa me As: Ultram) tramadol 50 0 No Galilea 50 mg, 1 Memoria mg oral 1-25 Avis Stef tab, l tablet 10:24: Route: PO, Salma nn Drug form: TAB, Q4H, PRN Pain, Start date: 10/09/13 4:24:00, Duration: 30 day, Stop date: 11/08/13 4:23:00(Sa me As: Ultram) tramadol 50 0 No Galilea 50 mg, 1 Memoria mg oral 1-25 Avis Stef tab, l tablet 10:24: Route: PO, Salma nn Drug form: TAB, Q4H, PRN Pain, Start date: 10/09/13 4:24:00, Duration: 30 day, Stop date: 11/08/13 4:23:00(Sa me As: Ultram) tramadol 50 2013-0 No Galilea 50 mg, 1 Memoria mg oral 1-25 Avis Stef tab, l tablet 10:24: Route: PO, Salma nn Drug form: TAB, Q4H, PRN Pain, Start date: 10/09/13 4:24:00, Duration: 30 day, Stop date: 11/08/13 4:23:00(Sa me As: Ultram) tramadol 50 2013-0 No Galilea 50 mg, 1 Memoria mg oral 1-25 Avis Stef tab, l tablet 10:24: Route: PO, Salma nn 00 Drug form: TAB, Q4H, PRN Pain, Start date: 10/09/13 4:24:00, Duration: 30 day, Stop date: 11/08/13 4:23:00(Sa me As: Ultram) tramadol 50 2013-0 No Galilea 50 mg, 1 Memoria mg oral 1-25 Avis Stef tab, l tablet 10:24: Route: PO, Salma nn 00 Drug form: TAB, Q4H, PRN Pain, Start date: 10/09/13 4:24:00, Duration: 30 day, Stop date: 11/08/13 4:23:00(Sa me As: Ultram) tramadol 50 2013-0 No Galilea 50 mg, 1 Memoria mg oral 1-25 Avis Stef tab, l tablet 10:24: Route: PO, Salma nn 00 Drug form: TAB, Q4H, PRN Pain, Start date: 10/09/13 4:24:00, Duration: 30 day, Stop date: 11/08/13 4:23:00(Sa me As: Ultram) tramadol 50 2013-0 No Galilea 50 mg, 1 Memoria mg oral 1-25 Avis Stef tab, l tablet 10:24: Route: PO, Salma nn 00 Drug form: TAB, Q4H, PRN Pain, Start date: 10/09/13 4:24:00, Duration: 30 day, Stop date: 11/08/13 4:23:00(Sa me As: Ultram) tramadol 50 2013-0 No Galilea 50 mg, 1 Memoria mg oral 1-25 Avis Stef tab, l tablet 10:24: Route: PO, Salma nn 00 Drug form: TAB, Q4H, PRN Pain, Start date: 10/09/13 4:24:00, Duration: 30 day, Stop date: 11/08/13 4:23:00(Sa me As: Ultram) tramadol 50 2013-0 No Galilea 50 mg, 1 Memoria mg oral 1-25 Avis Stef tab, l tablet 10:24: Route: PO, Salma nn 00 Drug form: TAB, Q4H, PRN Pain, Start date: 10/09/13 4:24:00, Duration: 30 day, Stop date: 11/08/13 4:23:00(Sa me As: Ultram) tramadol 50 2013-0 No Galilea 50 mg, 1 Memoria mg oral 1-25 Avis Stef tab, l tablet 10:24: Route: PO, Salma nn 00 Drug form: TAB, Q4H, PRN Pain, Start date: 10/09/13 4:24:00, Duration: 30 day, Stop date: 11/08/13 4:23:00(Sa me As: Ultram) tramadol 50 2013-0 No Galilea 50 mg, 1 Memoria mg oral 1-25 Avis Stef tab, l tablet 10:24: Route: PO, Salma nn 00 Drug form: TAB, Q4H, PRN Pain, Start date: 10/09/13 4:24:00, Duration: 30 day, Stop date: 11/08/13 4:23:00(Sa me As: Ultram) tramadol 50 0 No Galilea 50 mg, 1 Memoria mg oral 1-25 Avis Stef tab, l tablet 10:24: Route: PO, Salma nn 00 Drug form: TAB, Q4H, PRN Pain, Start date: 10/09/13 4:24:00, Duration: 30 day, Stop date: 11/08/13 4:23:00(Sa me As: Ultram) tramadol 50 0 No Galilea 50 mg, 1 Memoria mg oral 1-25 Avis Stef tab, l tablet 10:24: Route: PO, Salma nn 00 Drug form: TAB, Q4H, PRN Pain, Start date: 10/09/13 4:24:00, Duration: 30 day, Stop date: 11/08/13 4:23:00(Sa me As: Ultram) tramadol 50 2013-0 No Galilea 50 mg, 1 Memoria mg oral 1-25 Avis Stef tab, l tablet 10:24: Route: PO, Salma nn 00 Drug form: TAB, Q4H, PRN Pain, Start date: 10/09/13 4:24:00, Duration: 30 day, Stop date: 11/08/13 4:23:00( me As: Ultram) tramadol 50 2013-0 No Galilea 50 mg, 1 Memoria mg oral 1-25 Avis Stef tab, l tablet 10:24: Route: PO, Salma nn 00 Drug form: TAB, Q4H, PRN Pain, Start date: 10/09/13 4:24:00, Duration: 30 day, Stop date: 11/08/13 4:23:00( me As: Ultram) tramadol 50 0 No Galilea 50 mg, 1 Memoria mg oral 1-25 Avis Stef tab, l tablet 10:24: Route: PO, Salma nn 00 Drug form: TAB, Q4H, PRN Pain, Start date: 10/09/13 4:24:00, Duration: 30 day, Stop date: 11/08/13 4:23:00( me As: Ultram) tramadol 50 0 No Galilea 50 mg, 1 Memoria mg oral 1-25 Avis Stef tab, l tablet 10:24: Route: PO, Salma nn 00 Drug form: TAB, Q4H, PRN Pain, Start date: 10/09/13 4:24:00, Duration: 30 day, Stop date: 11/08/13 4:23:00( me As: Ultram) tramadol 50 0 No Galilea 50 mg, 1 Memoria mg oral 1-25 Avis Stef tab, l tablet 10:24: Route: PO, Salma nn 00 Drug form: TAB, Q4H, PRN Pain, Start date: 10/09/13 4:24:00, Duration: 30 day, Stop date: 11/08/13 4:23:00( me As: Ultram) tramadol 50 2013-0 No Galilea 50 mg, 1 Memoria mg oral 1-25 Avis Stef tab, l tablet 10:24: Route: PO, Salma nn 00 Drug form: TAB, Q4H, PRN Pain, Start date: 10/09/13 4:24:00, Duration: 30 day, Stop date: 11/08/13 4:23:00(Sa me As: Ultram) tramadol 50 2013-0 No Galilea 50 mg, 1 Memoria mg oral 1-25 Avis Stef tab, l tablet 10:24: Route: PO, Salma nn 00 Drug form: TAB, Q4H, PRN Pain, Start date: 10/09/13 4:24:00, Duration: 30 day, Stop date: 11/08/13 4:23:00(Sa me As: Ultram) tramadol 50 0 No Galilea 50 mg, 1 Memoria mg oral 1-25 Avis Stef tab, l tablet 10:24: Route: PO, Salma nn 00 Drug form: TAB, Q4H, PRN Pain, Start date: 10/09/13 4:24:00, Duration: 30 day, Stop date: 11/08/13 4:23:00(Sa me As: Ultram) tramadol 50 2013-0 No Galilea 50 mg, 1 Memoria mg oral 1-25 Avis Stef tab, l tablet 10:24: Route: PO, Salma nn 00 Drug form: TAB, Q4H, PRN Pain, Start date: 10/09/13 4:24:00, Duration: 30 day, Stop date: 11/08/13 4:23:00(Sa me As: Ultram) tramadol 50 0 No Galilea 50 mg, 1 Memoria mg oral 1-25 Avis Stef tab, l tablet 10:24: Route: PO, Salma nn 00 Drug form: TAB, Q4H, PRN Pain, Start date: 10/09/13 4:24:00, Duration: 30 day, Stop date: 11/08/13 4:23:00(Sa me As: Ultram) tramadol 50 2013-0 No Galilea 50 mg, 1 Memoria mg oral 1-25 Avis Stef tab, l tablet 10:24: Route: PO, Salma nn 00 Drug form: TAB, Q4H, PRN Pain, Start date: 10/09/13 4:24:00, Duration: 30 day, Stop date: 11/08/13 4:23:00(Sa me As: Ultram) tramadol 50 2013-0 No Galilea 50 mg, 1 Memoria mg oral 1-25 Avis Stef tab, l tablet 10:24: Route: PO, Salma nn 00 Drug form: TAB, Q4H, PRN Pain, Start date: 10/09/13 4:24:00, Duration: 30 day, Stop date: 11/08/13 4:23:00([facility] As: Ultram) Ancef No Roque 2 gm, 50 Memor ia 1-24 Maykel Braly mL, Route: l 21:00: II IVPB, Drug Lead 00 form: INJ, ABXQ8H, Dosing Weight 75.909, kg, Start date: 10/08/13 15:00:00, Duration: 3 doses or times, Stop date: 10/09/13 7:00:00 Ancef No Roque 2 gm, 50 Memor ia 1-24 Maykel Braly mL, Route: l 21:00: II IVPB, Drug Vinnie 00 form: INJ, ABXQ8H, Dosing Weight 75.909, kg, Start date: 10/08/13 15:00:00, Duration: 3 doses or times, Stop date: 10/09/13 7:00:00 Ancef 0 No Roque 2 gm, 50 Memor ia 1-24 Maykel Braly mL, Route: l 21:00: II IVPB, Drug Vinnie 00 form: INJ, ABXQ8H, Dosing Weight 75.909, kg, Start date: 10/08/13 15:00:00, Duration: 3 doses or times, Stop date: 10/09/13 7:00:00 Ancef 0 No Roque 2 gm, 50 Memor ia 1-24 Maykel Braly mL, Route: l 21:00: II IVPB, Drug Lead form: INJ, ABXQ8H, Dosing Weight 75.909, kg, Start date: 10/08/13 15:00:00, Duration: 3 doses or times, Stop date: 10/09/13 7:00:00 Ancef 0 No Roque 2 gm, 50 Memor ia 1-24 Maykel Braly mL, Route: l 21:00: II IVPB, Drug Vinnie form: INJ, ABXQ8H, Dosing Weight 75.909, kg, Start date: 10/08/13 15:00:00, Duration: 3 doses or times, Stop date: 10/09/13 7:00:00 Ancef 2013-0 No Roque 2 gm, 50 Memor ia 1-24 Maykel Braly mL, Route: l 21:00: II IVPB, Drug Lead 00 form: INJ, ABXQ8H, Dosing Weight 75.909, kg, Start date: 10/08/13 15:00:00, Duration: 3 doses or times, Stop date: 10/09/13 7:00:00 Ancef 2013-0 No Roque 2 gm, 50 Memor ia 1-24 Maykel Braly mL, Route: l 21:00: II IVPB, Drug Vinnie 00 form: INJ, ABXQ8H, Dosing Weight 75.909, kg, Start date: 10/08/13 15:00:00, Duration: 3 doses or times, Stop date: 10/09/13 7:00:00 Ancef 2013-0 No Roque 2 gm, 50 Memor ia 1-24 Maykel Braly mL, Route: l 21:00: II IVPB, Drug Vinnie 00 form: INJ, ABXQ8H, Dosing Weight 75.909, kg, Start date: 10/08/13 15:00:00, Duration: 3 doses or times, Stop date: 10/09/13 7:00:00 Ancef 2013-0 No Roque 2 gm, 50 Memor ia 1-24 Maykel Braly mL, Route: l 21:00: II IVPB, Drug Vinnie 00 form: INJ, ABXQ8H, Dosing Weight 75.909, kg, Start date: 10/08/13 15:00:00, Duration: 3 doses or times, Stop date: 10/09/13 7:00:00 Ancef 2013-0 No Roque 2 gm, 50 Memor ia 1-24 Maykel Braly mL, Route: l 21:00: II IVPB, Drug Lead 00 form: INJ, ABXQ8H, Dosing Weight 75.909, kg, Start date: 10/08/13 15:00:00, Duration: 3 doses or times, Stop date: 10/09/13 7:00:00 Ancef 2013-0 No Rouqe 2 gm, 50 Memor ia 1-24 Maykel Braly mL, Route: l 21:00: II IVPB, Drug Vinnie 00 form: INJ, ABXQ8H, Dosing Weight 75.909, kg, Start date: 10/08/13 15:00:00, Duration: 3 doses or times, Stop date: 10/09/13 7:00:00 Ancef 2013-0 No Roque 2 gm, 50 Memor ia 1-24 Maykel Braly mL, Route: l 21:00: II IVPB, Drug Vinnie 00 form: INJ, ABXQ8H, Dosing Weight 75.909, kg, Start date: 10/08/13 15:00:00, Duration: 3 doses or times, Stop date: 10/09/13 7:00:00 Ancef 2013-0 No Roque 2 gm, 50 Memor ia 1-24 Maykel Braly mL, Route: l 21:00: II IVPB, Drug Lead 00 form: INJ, ABXQ8H, Dosing Weight 75.909, kg, Start date: 10/08/13 15:00:00, Duration: 3 doses or times, Stop date: 10/09/13 7:00:00 Ancef 2013-0 No Roque 2 gm, 50 Memor ia 1-24 Maykel Braly mL, Route: l 21:00: II IVPB, Drug Lead 00 form: INJ, ABXQ8H, Dosing Weight 75.909, kg, Start date: 10/08/13 15:00:00, Duration: 3 doses or times, Stop date: 10/09/13 7:00:00 Ancef 2013-0 No Roque 2 gm, 50 Memor ia 1-24 Maykel Braly mL, Route: l 21:00: II IVPB, Drug Lead 00 form: INJ, ABXQ8H, Dosing Weight 75.909, kg, Start date: 10/08/13 15:00:00, Duration: 3 doses or times, Stop date: 10/09/13 7:00:00 Ancef 2013-0 No Roque 2 gm, 50 Memor ia 1-24 Maykel Braly mL, Route: l 21:00: II IVPB, Drug Vinnie 00 form: INJ, ABXQ8H, Dosing Weight 75.909, kg, Start date: 10/08/13 15:00:00, Duration: 3 doses or times, Stop date: 10/09/13 7:00:00 Ancef 2013-0 No Roque 2 gm, 50 Memor ia 1-24 Maykel Braly mL, Route: l 21:00: II IVPB, Drug Lead 00 form: INJ, ABXQ8H, Dosing Weight 75.909, kg, Start date: 10/08/13 15:00:00, Duration: 3 doses or times, Stop date: 10/09/13 7:00:00 Ancef 2013-0 No Roque 2 gm, 50 Memor ia 1-24 Maykel Braly mL, Route: l 21:00: II IVPB, Drug Lead 00 form: INJ, ABXQ8H, Dosing Weight 75.909, kg, Start date: 10/08/13 15:00:00, Duration: 3 doses or times, Stop date: 10/09/13 7:00:00 Ancef 2013-0 No Roque 2 gm, 50 Memor ia 1-24 Maykel Braly mL, Route: l 21:00: II IVPB, Drug Lead 00 form: INJ, ABXQ8H, Dosing Weight 75.909, kg, Start date: 10/08/13 15:00:00, Duration: 3 doses or times, Stop date: 10/09/13 7:00:00 Ancef 2013-0 No Roque 2 gm, 50 Memor ia 1-24 Amykel Braly mL, Route: l 21:00: II IVPB, Drug Vinnie 00 form: INJ, ABXQ8H, Dosing Weight 75.909, kg, Start date: 10/08/13 15:00:00, Duration: 3 doses or times, Stop date: 10/09/13 7:00:00 Ancef 2013-0 No Orque 2 gm, 50 Memor ia 1-24 Maykel Braly mL, Route: l 21:00: II IVPB, Drug Lead 00 form: INJ, ABXQ8H, Dosing Weight 75.909, kg, Start date: 10/08/13 15:00:00, Duration: 3 doses or times, Stop date: 10/09/13 7:00:00 Ancef 2013-0 No Roque 2 gm, 50 Memor ia 1-24 Maykel Braly mL, Route: l 21:00: II IVPB, Drug Vinnie 00 form: INJ, ABXQ8H, Dosing Weight 75.909, kg, Start date: 10/08/13 15:00:00, Duration: 3 doses or times, Stop date: 10/09/13 7:00:00 Ancef 2013-0 No Roque 2 gm, 50 Memor ia 1-24 Maykel Braly mL, Route: l 21:00: II IVPB, Drug Vinnie 00 form: INJ, ABXQ8H, Dosing Weight 75.909, kg, Start date: 10/08/13 15:00:00, Duration: 3 doses or times, Stop date: 10/09/13 7:00:00 Ancef 2013-0 No Roque 2 gm, 50 Memor ia 1-24 Maykel Braly mL, Route: l 21:00: II IVPB, Drug Vinnie 00 form: INJ, ABXQ8H, Dosing Weight 75.909, kg, Start date: 10/08/13 15:00:00, Duration: 3 doses or times, Stop date: 10/09/13 7:00:00 Ancef 2013-0 No Roque 2 gm, 50 Memor ia 1-24 Maykel Braly mL, Route: l 21:00: II IVPB, Drug Vinnie 00 form: INJ, ABXQ8H, Dosing Weight 75.909, kg, Start date: 10/08/13 15:00:00, Duration: 3 doses or times, Stop date: 10/09/13 7:00:00 Ancef 2013-0 No Roque 2 gm, 50 Memor ia 1-24 Maykel Braly mL, Route: l 21:00: II IVPB, Drug Vinnie 00 form: INJ, ABXQ8H, Dosing Weight 75.909, kg, Start date: 10/08/13 15:00:00, Duration: 3 doses or times, Stop date: 10/09/13 7:00:00 Ancef 2013-0 No Roque 2 gm, 50 Memor ia 1-24 Maykel Braly mL, Route: l 21:00: II IVPB, Drug Lead 00 form: INJ, ABXQ8H, Dosing Weight 75.909, kg, Start date: 10/08/13 15:00:00, Duration: 3 doses or times, Stop date: 10/09/13 7:00:00 ceFAZolin 2014-0 No Jeffery 1 gm, Semaj shashi 1-24 Jose Carlos Route: l 17:05: Achor IVP, ONCE, Leland n 00 Dosing Weight 75.909, kg, Start date: 10/08/13 11:05:00, Duration: 1 doses or times, Stop date: 10/08/13 11:05:00 ceFAZolin 2013-0 No Jeffery 1 gm, Semaj shashi 1-24 Jose Carlos Route: l 17:05: Achor IVP, ONCE, Leland n 00 Dosing Weight 75.909, kg, Start date: 10/08/13 11:05:00, Duration: 1 doses or times, Stop date: 10/08/13 11:05:00 ceFAZolin 2014-0 No Jeffery 1 gm, Semaj shashi 1-24 Jose Carlos Route: l 17:05: Achor IVP, ONCE, Leland n 00 Dosing Weight 75.909, kg, Start date: 10/08/13 11:05:00, Duration: 1 doses or times, Stop date: 10/08/13 11:05:00 ceFAZolin 2013-0 No Jeffery 1 gm, Semaj shashi 1-24 Jose Carlos Route: l 17:05: Achor IVP, ONCE, Leland n 00 Dosing Weight 75.909, kg, Start date: 10/08/13 11:05:00, Duration: 1 doses or times, Stop date: 10/08/13 11:05:00 ceFAZolin 2013-0 No Jeffery 1 gm, Semaj shashi 1-24 Jose Carlos Route: l 17:05: Achor IVP, ONCE, Leland n 00 Dosing Weight 75.909, kg, Start date: 10/08/13 11:05:00, Duration: 1 doses or times, Stop date: 10/08/13 11:05:00 ceFAZolin 2014-0 No Jeffery 1 gm, Semaj shashi 1-24 Jose Carlos Route: l 17:05: Achor IVP, ONCE, Leland n 00 Dosing Weight 75.909, kg, Start date: 10/08/13 11:05:00, Duration: 1 doses or times, Stop date: 10/08/13 11:05:00 ceFAZolin 2014-0 No Jeffery 1 gm, Semaj shashi 1-24 Jose Carlos Route: l 17:05: Achor IVP, ONCE, Leland n 00 Dosing Weight 75.909, kg, Start date: 10/08/13 11:05:00, Duration: 1 doses or times, Stop date: 10/08/13 11:05:00 ceFAZolin 2013-0 No Jeffery 1 gm, Semaj shashi 1-24 Jose Carlos Route: l 17:05: Achor IVP, ONCE, Leland n 00 Dosing Weight 75.909, kg, Start date: 10/08/13 11:05:00, Duration: 1 doses or times, Stop date: 10/08/13 11:05:00 ceFAZolin 2013-0 No Jeffery 1 gm, Semaj shashi 1-24 Jose Carlos Route: l 17:05: Achor IVP, ONCE, Leland n 00 Dosing Weight 75.909, kg, Start date: 10/08/13 11:05:00, Duration: 1 doses or times, Stop date: 10/08/13 11:05:00 ceFAZolin 2013-0 No Jeffery 1 gm, Semaj shashi 1-24 Jose Carlos Route: l 17:05: Achor IVP, ONCE, Leland n 00 Dosing Weight 75.909, kg, Start date: 10/08/13 11:05:00, Duration: 1 doses or times, Stop date: 10/08/13 11:05:00 ceFAZolin 2013-0 No Jeffery 1 gm, Semaj shashi 1-24 Jose Carlos Route: l 17:05: Achor IVP, ONCE, Leland n 00 Dosing Weight 75.909, kg, Start date: 10/08/13 11:05:00, Duration: 1 doses or times, Stop date: 10/08/13 11:05:00 ceFAZolin 2013-0 No Jeffery 1 gm, Semaj shashi 1-24 Jose Carlos Route: l 17:05: Achor IVP, ONCE, Leland n 00 Dosing Weight 75.909, kg, Start date: 10/08/13 11:05:00, Duration: 1 doses or times, Stop date: 10/08/13 11:05:00 ceFAZolin 2014-0 No Jeffery 1 gm, Semaj shashi 1-24 Jose Carlos Route: l 17:05: Achor IVP, ONCE, Leland n 00 Dosing Weight 75.909, kg, Start date: 10/08/13 11:05:00, Duration: 1 doses or times, Stop date: 10/08/13 11:05:00 ceFAZolin 2014-0 No Jeffery 1 gm, Semaj shashi 1-24 Jose Carlos Route: l 17:05: Achor IVP, ONCE, Leland n 00 Dosing Weight 75.909, kg, Start date: 10/08/13 11:05:00, Duration: 1 doses or times, Stop date: 10/08/13 11:05:00 ceFAZolin 2013-0 No Jeffery 1 gm, Semaj shashi 1-24 Jose Carlos Route: l 17:05: Achor IVP, ONCE, Leland n 00 Dosing Weight 75.909, kg, Start date: 10/08/13 11:05:00, Duration: 1 doses or times, Stop date: 10/08/13 11:05:00 ceFAZolin 2013-0 No Jeffery 1 gm, Semaj shashi 1-24 Jose Carlos Route: l 17:05: Achor IVP, ONCE, Leland n 00 Dosing Weight 75.909, kg, Start date: 10/08/13 11:05:00, Duration: 1 doses or times, Stop date: 10/08/13 11:05:00 ceFAZolin 2014-0 No Jeffery 1 gm, Semaj shashi 1-24 Jose Carlos Route: l 17:05: Achor IVP, ONCE, Leland n 00 Dosing Weight 75.909, kg, Start date: 10/08/13 11:05:00, Duration: 1 doses or times, Stop date: 10/08/13 11:05:00 ceFAZolin 2013-0 No Jeffery 1 gm, Semaj shashi 1-24 Jose Carlos Route: l 17:05: Achor IVP, ONCE, Leland n 00 Dosing Weight 75.909, kg, Start date: 10/08/13 11:05:00, Duration: 1 doses or times, Stop date: 10/08/13 11:05:00 ceFAZolin 2014-0 No Jeffery 1 gm, Semaj shashi 1-24 Jose Carlos Route: l 17:05: Achor IVP, ONCE, Leland n 00 Dosing Weight 75.909, kg, Start date: 10/08/13 11:05:00, Duration: 1 doses or times, Stop date: 10/08/13 11:05:00 ceFAZolin 2014-0 No Jeffery 1 gm, Semaj shashi 1-24 Jose Carlos Route: l 17:05: Achor IVP, ONCE, Leland n 00 Dosing Weight 75.909, kg, Start date: 10/08/13 11:05:00, Duration: 1 doses or times, Stop date: 10/08/13 11:05:00 ceFAZolin 2013-0 No Jeffery 1 gm, Semaj shashi 1-24 Jose Carlos Route: l 17:05: Achor IVP, ONCE, Leland n 00 Dosing Weight 75.909, kg, Start date: 10/08/13 11:05:00, Duration: 1 doses or times, Stop date: 10/08/13 11:05:00 ceFAZolin 2014-0 No Jeffery 1 gm, Semaj shashi 1-24 Jose Carlos Route: l 17:05: Achor IVP, ONCE, Leland n 00 Dosing Weight 75.909, kg, Start date: 10/08/13 11:05:00, Duration: 1 doses or times, Stop date: 10/08/13 11:05:00 ceFAZolin 2014-0 No Jeffery 1 gm, Semaj shashi 1-24 Jose Carlos Route: l 17:05: Achor IVP, ONCE, Leland n 00 Dosing Weight 75.909, kg, Start date: 10/08/13 11:05:00, Duration: 1 doses or times, Stop date: 10/08/13 11:05:00 ceFAZolin 2014-0 No Jeffery 1 gm, Semaj shashi 1-24 Jose Carlos Route: l 17:05: Achor IVP, ONCE, Leland n 00 Dosing Weight 75.909, kg, Start date: 10/08/13 11:05:00, Duration: 1 doses or times, Stop date: 10/08/13 11:05:00 ceFAZolin 2014-0 No Jeffery 1 gm, Semaj shashi 1-24 Jose Carlos Route: l 17:05: Achor IVP, ONCE, Leland n 00 Dosing Weight 75.909, kg, Start date: 10/08/13 11:05:00, Duration: 1 doses or times, Stop date: 10/08/13 11:05:00 ceFAZolin 0 No Jeffery 1 gm, Semaj shsahi 1-24 Jose Carlos Route: l 17:05: Achor IVP, ONCE, Leland n 00 Dosing Weight 75.909, kg, Start date: 10/08/13 11:05:00, Duration: 1 doses or times, Stop date: 10/08/13 11:05:00 ceFAZolin 0 No Jeffery 1 gm, Semaj shashi 1-24 [...] No Tori 4 mg, 2 Me moria -24 [place] mL, Route: l 16:54: Sarwat IVP, [...] date: 10/09/13 0:00:00(Sa me as: Narcan) hydromorpho No Tori 0.5 mg, Me moria ne 1-24 [place] 0.25 mL, l 16:54: Sarwat Route: Lead 00 IVP, Drug form: INJ, Q5Min, Dosing [...] as: Apresoline ) Push over 5 minutes metoprolol No Tori 1 mg, 1 Mem oria 1-24 [place] mL, Route: l 16:54: Sarwat IVP, Drug Salma nn 00 form: INJ, Q5Min, Dosing Weight 75.909, kg, PRN Other -See Comment, Start date: 10/08/13 10:54:00, Duration: 5 doses or times, Stop date: 10/09/13 0:00:00(Sa me as: Lopressor) Push over 2 minutes ondansetron 2014-0 No Tori 4 mg, 2 Me moria [...] 5 doses or times, Stop date: 10/09/13 0:00:00( me as: Romazicon) naloxone No Tori 0.04 mg, Semaj shashi 1-24 [place] 0.1 mL, l 16:54: Sarwat Route: Vinnie 00 IVP, Drug form: INJ, Q2MIN, Dosing Weight 75.909, kg, PRN Narcotic Reversal, Start date: 10/08/13 10:54:00, Duration: 8 doses or times, Stop date: 10/09/13 0:00:00( me as: Narcan) hydromorpho No Tori 0.5 mg, Me moria ne 1-24 [place] 0.25 mL, l 16:54: [place] Route: Vinnie 00 IVP, Drug form: INJ, Q5Min, Dosing Weight 75.909, kg, PRN Pain Score 7-10, Start date: 10/08/13 10:54:00, Duration: 4 doses or times, Stop date: 10/09/13 0:00:00( me as: Dilaudid) hydrALAZINE 0 No Tori 10 mg, 0.5 Memoria 1-24 [place] mL, Route: l 16:54: Sarwat IVP, Drug Salma nn 00 form: INJ, Q20Min, Dosing Weight 75.909, kg, PRN Elevated BP, Start date: 10/08/13 10:54:00, Duration: 2 doses or times, Stop date: 10/09/13 0:00:00(Sa me as: Apresoline ) Push over 5 minutes metoprolol No Tori 1 mg, 1 Mem [...] [place] 0.1 mL, l 16:54: [place] Route: Lead 00 IVP, Drug form: INJ, Q2MIN, Dosing Weight 75.909, kg, PRN Narcotic Reversal, Start date: 10/08/13 10:54:00, Duration: 8 doses or times, Stop date: 10/09/13 0:00:00(Sa me as: Narcan) hydromorpho No Tori 0.5 mg, Me moria ne 1-24 [place] 0.25 mL, l 16:54: [place] Route: Vinnie 00 IVP, Drug form: INJ, Q5Min, Dosing [...] as: Apresoline ) Push over 5 minutes metoprolol No Tori 1 mg, 1 Mem oria 1-24 [place] mL, Route: l 16:54: Sarwat IVP, Drug Salma nn 00 form: INJ, Q5Min, Dosing Weight 75.909, kg, PRN Other -See Comment, Start date: 10/08/13 10:54:00, Duration: 5 doses or times, Stop date: 10/09/13 0:00:00([facility] as: Lopressor) Push over 2 minutes ondansetron [...] date: 10/09/13 0:00:00(Sa me as: Narcan) hydromorpho No Tori 0.5 mg, Me moria ne 1-24 [place] 0.25 mL, l 16:54: [place] Route: Vinnie 00 IVP, Drug form: INJ, Q5Min, Dosing [...] as: Apresoline ) Push over 5 minutes metoprolol No Tori 1 mg, 1 Mem [...] 5 doses or times, Stop date: 10/09/13 0:00:00( me as: Romazicon) naloxone No Tori 0.04 mg, Semaj shashi 1-24 [place] 0.1 mL, l 16:54: [place] Route: Vinnie 00 IVP, Drug form: INJ, Q2MIN, Dosing Weight 75.909, kg, PRN Narcotic Reversal, Start date: 10/08/13 10:54:00, Duration: 8 doses or times, Stop date: 10/09/13 0:00:00([facility] as: Narcan) hydromorpho No Tori 0.5 mg, Me moria ne 1-24 [place] 0.25 mL, l 16:54: [place] Route: Vinnie 00 IVP, Drug form: INJ, Q5Min, Dosing Weight 75.909, kg, PRN Pain Score 7-10, Start date: 10/08/13 10:54:00, Duration: 4 doses or times, Stop date: 10/09/13 0:00:00( me as: Dilaudid) hydrALAZINE No Tori 10 mg, 0.5 Memoria 1-24 [place] mL, Route: l 16:54: [place] IVP, Drug Salma nn 00 form: INJ, Q20Min, Dosing Weight 75.909, kg, PRN Elevated BP, Start date: 10/08/13 10:54:00, Duration: 2 doses or times, Stop date: 10/09/13 0:00:00( me as: Apresoline ) Push over 5 minutes metoprolol No Tori 1 mg, 1 Mem oria 1-24 [place] mL, Route: l 16:54: [place] IVP, Drug Salma nn 00 form: INJ, Q5Min, Dosing Weight 75.909, kg, PRN Other -See Comment, Start date: 10/08/13 10:54:00, Duration: 5 doses or times, Stop date: 10/09/13 0:00:00( me as: Lopressor) Push over 2 minutes [...] 5 doses or times, Stop date: 10/09/13 0:00:00( me as: Romazicon) naloxone No Tori 0.04 mg, Semaj shashi 1-24 [place] 0.1 mL, l 16:54: [place] Route: Lead 00 IVP, Drug form: INJ, Q2MIN, Dosing Weight 75.909, kg, PRN Narcotic Reversal, Start date: 10/08/13 10:54:00, Duration: 8 doses or times, Stop date: 10/09/13 0:00:00( me as: Narcan) hydromorpho No Tori 0.5 mg, Me moria ne 1-24 [place] 0.25 mL, l 16:54: [place] Route: Vinnie 00 IVP, Drug form: INJ, Q5Min, Dosing Weight 75.909, kg, PRN Pain Score 7-10, Start date: 10/08/13 10:54:00, Duration: 4 doses or times, Stop date: 10/09/13 0:00:00([facility] as: Dilaudid) hydrALAZINE No Tori 10 mg, 0.5 Memoria 1-24 [place] mL, Route: l 16:54: [place] IVP, Drug Salma nn 00 form: INJ, Q20Min, Dosing Weight 75.909, kg, PRN Elevated BP, Start date: 10/08/13 10:54:00, Duration: 2 doses or times, Stop date: 10/09/13 0:00:00([facility] as: Apresoline ) Push over 5 minutes metoprolol No Tori 1 mg, 1 Mem oria 1-24 [place] mL, Route: l 16:54: [place] IVP, Drug Salma nn form: INJ, Q5Min, Dosing Weight 75.909, kg, PRN Other -See Comment, Start date: 10/08/13 10:54:00, Duration: 5 doses or times, Stop date: 10/09/13 0:00:00([facility] as: Lopressor) Push over 2 minutes ondansetron [...] [place] 0.1 mL, l 16:54: [place] Route: Lead 00 IVP, Drug form: INJ, Q2MIN, Dosing Weight 75.909, kg, PRN Narcotic Reversal, Start date: 10/08/13 10:54:00, Duration: 8 doses or times, Stop date: 10/09/13 0:00:00(Sa me as: Narcan) hydromorpho No Tori 0.5 mg, Me moria ne 1-24 [place] 0.25 mL, l 16:54: [place] Route: Lead 00 IVP, Drug form: INJ, Q5Min, Dosing [...] as: Apresoline ) Push over 5 minutes metoprolol No Tori 1 mg, 1 Mem [...] mL, Route: l 16:54: [place] IVP, Drug Aslma nn 00 form: INJ, ONCE, Dosing Weight [...] 8 doses or times, Stop date: 10/09/13 0:00:00( me as: Narcan) hydromorpho No Tori 0.5 mg, Me moria ne 1-24 [place] 0.25 mL, l 16:54: [place] Route: Lead 00 IVP, Drug form: INJ, Q5Min, Dosing Weight 75.909, kg, PRN Pain Score 7-10, Start date: 10/08/13 10:54:00, Duration: 4 doses or times, Stop date: 10/09/13 0:00:00( me as: Dilaudid) hydrALAZINE No Tori 10 mg, 0.5 Memoria 1-24 [place] mL, Route: l 16:54: [place] IVP, Drug Salma nn 00 form: INJ, Q20Min, Dosing Weight 75.909, kg, PRN Elevated BP, Start date: 10/08/13 10:54:00, Duration: 2 doses or times, Stop date: 10/09/13 0:00:00( me as: Apresoline ) Push over 5 minutes metoprolol No Tori 1 mg, 1 Mem oria 1-24 [place] mL, Route: l 16:54: [place] IVP, Drug Salma nn 00 form: INJ, Q5Min, Dosing Weight 75.909, kg, PRN Other -See Comment, Start date: 10/08/13 10:54:00, Duration: 5 doses or times, Stop date: 10/09/13 0:00:00( me as: Lopressor) Push over 2 minutes [...] 5 doses or times, Stop date: 10/09/13 0:00:00( me as: Romazicon) naloxone No Tori 0.04 mg, Semaj shashi 1-24 [place] 0.1 mL, l 16:54: [place] Route: Lead 00 IVP, Drug form: INJ, Q2MIN, Dosing Weight 75.909, kg, PRN Narcotic Reversal, Start date: 10/08/13 10:54:00, Duration: 8 doses or times, Stop date: 10/09/13 0:00:00( me as: Narcan) hydromorpho No Tori 0.5 mg, Me moria ne 1-24 [place] 0.25 mL, l 16:54: [place] Route: Lead 00 IVP, Drug form: INJ, Q5Min, Dosing [...] as: Apresoline ) Push over 5 minutes metoprolol No Tori 1 mg, 1 Mem [...] [place] 0.1 mL, l 16:54: [place] Route: Lead 00 IVP, Drug form: INJ, Q2MIN, Dosing Weight 75.909, kg, PRN Narcotic Reversal, Start date: 10/08/13 10:54:00, Duration: 8 doses or times, Stop date: 10/09/13 0:00:00(Sa me as: Narcan) hydromorpho No Tori 0.5 mg, Me moria ne 1-24 [place] 0.25 mL, l 16:54: [place] Route: Lead 00 IVP, Drug form: INJ, Q5Min, Dosing [...] as: Apresoline ) Push over 5 minutes metoprolol No Tori 1 mg, 1 Mem [...] Route: l 16:54: [place] IVP, Drug Salma form: INJ, PRN, Dosing Weight 75.909, kg, [...] date: 10/09/13 0:00:00(Sa me as: Narcan) hydromorpho No Tori 0.5 mg, Me moria ne 1-24 [place] 0.25 mL, l 16:54: [place] Route: Vinnie 00 IVP, Drug form: INJ, Q5Min, Dosing Weight 75.909, kg, PRN Pain Score 7-10, Start date: 10/08/13 10:54:00, Duration: 4 doses or times, Stop date: 10/09/13 0:00:00(Sa me as: Dilaudid) hydrALAZINE No Tori 10 mg, 0.5 Memoria 1-24 [place] mL, Route: l 16:54: [place] IVP, Drug Salma form: INJ, Q20Min, Dosing Weight 75.909, kg, PRN Elevated BP, Start date: 10/08/13 10:54:00, Duration: 2 doses or times, Stop date: 10/09/13 0:00:00(Sa me as: Apresoline ) Push over 5 minutes metoprolol No Tori 1 mg, 1 Mem [...] date: 10/09/13 0:00:00(Sa me as: Narcan) hydromorpho No Tori 0.5 mg, Me moria ne 1-24 [place] 0.25 mL, l 16:54: [place] Route: Vinnie 00 IVP, Drug form: INJ, Q5Min, Dosing [...] as: Apresoline ) Push over 5 minutes metoprolol No Tori 1 mg, 1 Mem [...] [place] 0.1 mL, l 16:54: [place] Route: Lead 00 IVP, Drug form: INJ, Q2MIN, Dosing Weight 75.909, kg, PRN Narcotic Reversal, Start date: 10/08/13 10:54:00, Duration: 8 doses or times, Stop date: 10/09/13 0:00:00(Sa me as: Narcan) hydromorpho No Tori 0.5 mg, Me moria ne 1-24 [place] 0.25 mL, l 16:54: [place] Route: Lead 00 IVP, Drug form: INJ, Q5Min, Dosing Weight 75.909, kg, PRN Pain Score 7-10, Start date: 10/08/13 10:54:00, Duration: 4 doses or times, Stop date: 10/09/13 0:00:00( me as: Dilaudid) hydrALAZINE No Tori 10 mg, 0.5 Memoria 1-24 [place] mL, Route: l 16:54: [place] IVP, Drug Salma nn 00 form: INJ, Q20Min, Dosing Weight 75.909, kg, PRN Elevated BP, Start date: 10/08/13 10:54:00, Duration: 2 doses or times, Stop date: 10/09/13 0:00:00(Sa me as: Apresoline ) Push over 5 minutes metoprolol No Tori 1 mg, 1 Mem oria 1-24 [place] mL, Route: l 16:54: [place] IVP, Drug Salma nn 00 form: INJ, Q5Min, Dosing Weight 75.909, kg, PRN Other -See Comment, Start date: 10/08/13 10:54:00, Duration: 5 doses or times, Stop date: 10/09/13 0:00:00( me as: Lopressor) Push over 2 minutes [...] 8 doses or times, Stop date: 10/09/13 0:00:00( me as: Narcan) hydromorpho No Tori 0.5 mg, Me moria ne 1-24 [place] 0.25 mL, l 16:54: [place] Route: Lead 00 IVP, Drug form: INJ, Q5Min, Dosing Weight 75.909, kg, PRN Pain Score 7-10, Start date: 10/08/13 10:54:00, Duration: 4 doses or times, Stop date: 10/09/13 0:00:00( me as: Dilaudid) hydrALAZINE No Tori 10 mg, 0.5 Memoria 1-24 [place] mL, Route: l 16:54: [place] IVP, Drug Salma nn 00 form: INJ, Q20Min, Dosing Weight 75.909, kg, PRN Elevated BP, Start date: 10/08/13 10:54:00, Duration: 2 doses or times, Stop date: 10/09/13 0:00:00(Sa me as: Apresoline ) Push over 5 minutes metoprolol No Tori 1 mg, 1 Mem oria 1-24 [place] mL, Route: l 16:54: [place] IVP, Drug Salma nn 00 form: INJ, Q5Min, Dosing Weight 75.909, kg, PRN Other -See Comment, Start date: 10/08/13 10:54:00, Duration: 5 doses or times, Stop date: 10/09/13 0:00:00( me as: Lopressor) Push over 2 minutes [...] 5 doses or times, Stop date: 10/09/13 0:00:00( me as: Romazicon) naloxone No Tori 0.04 mg, Semaj shashi 1-24 [place] 0.1 mL, l 16:54: [place] Route: Lead 00 IVP, Drug form: INJ, Q2MIN, Dosing Weight 75.909, kg, PRN Narcotic Reversal, Start date: 10/08/13 10:54:00, Duration: 8 doses or times, Stop date: 10/09/13 0:00:00( me as: Narcan) hydromorpho No Tori 0.5 mg, Me moria ne 1-24 [place] 0.25 mL, l 16:54: [place] Route: Vinnei 00 IVP, Drug form: INJ, Q5Min, Dosing [...] as: Apresoline ) Push over 5 minutes metoprolol No Tori 1 mg, 1 Mem [...] date: 10/09/13 0:00:00(Sa me as: Narcan) hydromorpho No Tori 0.5 mg, Me moria ne 1-24 [place] 0.25 mL, l 16:54: [place] Route: Vinnie 00 IVP, Drug form: INJ, Q5Min, Dosing [...] as: Apresoline ) Push over 5 minutes metoprolol No Tori 1 mg, 1 Mem oria -24 [place] mL, Route: l 16:54: [place] IVP, [...] l 16:54: [place] IVP, Drug Salma nn form: INJ, PRN, Dosing Weight 75.909, kg, PRN Benzodiaze pine Reversal, Initial dose, Start date: 10/08/13 10:54:00, Duration: 5 doses or times, Stop date: 10/09/13 0:00:00(Sa me as: Romazicon) naloxone No Tori 0.04 mg, Semaj shashi 1-24 [place] 0.1 mL, l 16:54: [place] Route: Lead 00 IVP, Drug form: INJ, Q2MIN, Dosing Weight 75.909, kg, PRN Narcotic Reversal, Start date: 10/08/13 10:54:00, Duration: 8 doses or times, Stop date: 10/09/13 0:00:00(Sa me as: Narcan) hydromorpho No Tori 0.5 mg, Me moria ne 1-24 [place] 0.25 mL, l 16:54: [place] Route: Vinnie 00 IVP, Drug form: INJ, Q5Min, Dosing Weight 75.909, kg, PRN Pain Score 7-10, Start date: 10/08/13 10:54:00, Duration: 4 doses or times, Stop date: 10/09/13 0:00:00(Sa me as: Dilaudid) hydrALAZINE No Tori 10 mg, 0.5 Memoria 1-24 [place] mL, Route: l 16:54: [place] IVP, Drug Salma nn form: INJ, Q20Min, Dosing Weight 75.909, kg, PRN Elevated BP, Start date: 10/08/13 10:54:00, Duration: 2 doses or times, Stop date: 10/09/13 0:00:00(Sa me as: Apresoline ) Push over 5 minutes metoprolol No Tori 1 mg, 1 Mem [...] No Tori 0.2 mg, 2 M emoria -24 [place] mL, Route: l 16:54: [place] IVP, Drug Salma nn 00 form: INJ, PRN, Dosing Weight 75.909, kg, PRN Benzodiaze pine Reversal, Initial dose, Start date: 10/08/13 10:54:00, Duration: 5 doses or times, Stop date: 10/09/13 0:00:00(Sa me as: Romazicon) naloxone No Tori 0.04 mg, Semaj shashi 1-24 [place] 0.1 mL, l 16:54: [place] Route: Lead 00 IVP, Drug form: INJ, Q2MIN, Dosing Weight 75.909, kg, PRN Narcotic Reversal, Start date: 10/08/13 10:54:00, Duration: 8 doses or times, Stop date: 10/09/13 0:00:00(Sa [facility] as: Narcan) hydromorpho No Tori 0.5 mg, Me moria ne 1-24 [place] 0.25 mL, l 16:54: [place] Route: Vinnie 00 IVP, Drug form: INJ, Q5Min, Dosing [...] as: Apresoline ) Push over 5 minutes metoprolol No Toir 1 mg, 1 Mem oria 1-24 [place] mL, Route: l 16:54: [place] IVP, Drug Salma nn 00 form: INJ, Q5Min, Dosing Weight 75.909, kg, PRN Other -See Comment, Start date: 10/08/13 10:54:00, Duration: 5 doses or times, Stop date: 10/09/13 0:00:00( me as: Lopressor) Push over 2 minutes [...] [place] 0.1 mL, l 16:54: [place] Route: Lead 00 IVP, Drug form: INJ, Q2MIN, Dosing Weight 75.909, kg, PRN Narcotic Reversal, Start date: 10/08/13 10:54:00, Duration: 8 doses or times, Stop date: 10/09/13 0:00:00(Sa [facility] as: Narcan) hydromorpho No Tori 0.5 mg, Me moria ne 1-24 [place] 0.25 mL, l 16:54: [place] Route: Lead 00 IVP, Drug form: INJ, Q5Min, Dosing [...] as: Apresoline ) Push over 5 minutes metoprolol No Tori 1 mg, 1 Mem [...] 5 doses or times, Stop date: 10/09/13 0:00:00( me as: Romazicon) naloxone No Tori 0.04 mg, Semaj shashi 1-24 [place] 0.1 mL, l 16:54: [place] Route: Vinnie 00 IVP, Drug form: INJ, Q2MIN, Dosing Weight 75.909, kg, PRN Narcotic Reversal, Start date: 10/08/13 10:54:00, Duration: 8 doses or times, Stop date: 10/09/13 0:00:00( me as: Narcan) hydromorpho No Tori 0.5 mg, Me moria ne 1-24 [place] 0.25 mL, l 16:54: [place] Route: Vinnie 00 IVP, Drug form: INJ, Q5Min, Dosing Weight 75.909, kg, PRN Pain Score 7-10, Start date: 10/08/13 10:54:00, Duration: 4 doses or times, Stop date: 10/09/13 0:00:00([facility] as: Dilaudid) hydrALAZINE No Tori 10 mg, 0.5 Memoria 1-24 [place] mL, Route: l 16:54: [place] IVP, Drug Salma nn 00 form: INJ, Q20Min, Dosing Weight 75.909, kg, PRN Elevated BP, Start date: 10/08/13 10:54:00, Duration: 2 doses or times, Stop date: 10/09/13 0:00:00( me as: Apresoline ) Push over 5 minutes metoprolol No Tori 1 mg, 1 Mem [...] 8 doses or times, Stop date: 10/09/13 0:00:00( me as: Narcan) hydromorpho 0 No Tori 0.5 mg, Me moria ne 1-24 [place] 0.25 mL, l 16:54: [place] Route: Lead 00 IVP, Drug form: INJ, Q5Min, Dosing Weight 75.909, kg, PRN Pain Score 7-10, Start date: 10/08/13 10:54:00, Duration: 4 doses or times, Stop date: 10/09/13 0:00:00( me as: Dilaudid) hydrALAZINE No Tori 10 mg, 0.5 Memoria 1-24 [place] mL, Route: l 16:54: [place] IVP, Drug Salma nn 00 form: INJ, Q20Min, Dosing Weight 75.909, kg, PRN Elevated BP, Start date: 10/08/13 10:54:00, Duration: 2 doses or times, Stop date: 10/09/13 0:00:00(Sa me as: Apresoline ) Push over 5 minutes metoprolol No Tori 1 mg, 1 Mem oria 1-24 [place] mL, Route: l 16:54: [place] IVP, Drug Salma nn 00 form: INJ, Q5Min, Dosing Weight 75.909, kg, PRN Other -See Comment, Start date: 10/08/13 10:54:00, Duration: 5 doses or times, Stop date: 10/09/13 0:00:00( me as: Lopressor) Push over 2 minutes [...] 5 doses or times, Stop date: 10/09/13 0:00:00( me as: Romazicon) naloxone No Tori 0.04 mg, Semaj shashi 1-24 [place] 0.1 mL, l 16:54: [place] Route: Lead 00 IVP, Drug form: INJ, Q2MIN, Dosing Weight 75.909, kg, PRN Narcotic Reversal, Start date: 10/08/13 10:54:00, Duration: 8 doses or times, Stop date: 10/09/13 0:00:00(Sa me as: Narcan) hydromorpho No Tori 0.5 mg, Me moria ne 1-24 [place] 0.25 mL, l 16:54: [place] Route: Vinnie 00 IVP, Drug form: INJ, Q5Min, Dosing Weight 75.909, kg, PRN Pain Score 7-10, Start date: 10/08/13 10:54:00, Duration: 4 doses or times, Stop date: 10/09/13 0:00:00(Sa me as: Dilaudid) hydrALAZINE No Tori 10 mg, 0.5 Memoria 1-24 [place] mL, Route: l 16:54: [place] IVP, Drug Salma nn form: INJ, Q20Min, Dosing Weight 75.909, kg, PRN Elevated BP, Start date: 10/08/13 10:54:00, Duration: 2 doses or times, Stop date: 10/09/13 0:00:00(Sa me as: Apresoline ) Push over 5 minutes metoprolol No Tori 1 mg, 1 Mem [...] 8 doses or times, Stop date: 10/09/13 0:00:00( me as: Narcan) hydromorpho No Tori 0.5 mg, Me moria ne 1-24 [place] 0.25 mL, l 16:54: [place] Route: Lead 00 IVP, Drug form: INJ, Q5Min, Dosing Weight 75.909, kg, PRN Pain Score 7-10, Start date: 10/08/13 10:54:00, Duration: 4 doses or times, Stop date: 10/09/13 0:00:00( me as: Dilaudid) hydrALAZINE No Tori 10 mg, 0.5 Memoria 1-24 [place] mL, Route: l 16:54: [place] IVP, Drug Salma nn 00 form: INJ, Q20Min, Dosing Weight 75.909, kg, PRN Elevated BP, Start date: 10/08/13 10:54:00, Duration: 2 doses or times, Stop date: 10/09/13 0:00:00(Sa me as: Apresoline ) Push over 5 minutes metoprolol No Tori 1 mg, 1 Mem [...] l 16:54: [place] IVP, Drug Salma nn form: INJ, PRN, Dosing Weight 75.909, kg, PRN Benzodiaze pine Reversal, Initial dose, Start date: 10/08/13 10:54:00, Duration: 5 doses or times, Stop date: 10/09/13 0:00:00(Sa me as: Romazicon) naloxone No Tori 0.04 mg, Semaj shashi 1-24 [place] 0.1 mL, l 16:54: [place] Route: Lead 00 IVP, Drug form: INJ, Q2MIN, Dosing Weight 75.909, kg, PRN Narcotic Reversal, Start date: 10/08/13 10:54:00, Duration: 8 doses or times, Stop date: 10/09/13 0:00:00(Sa me as: Narcan) hydromorpho No Tori 0.5 mg, Me moria ne 1-24 [place] 0.25 mL, l 16:54: [place] Route: Vinnie 00 IVP, Drug form: INJ, Q5Min, Dosing [...] as: Apresoline ) Push over 5 minutes metoprolol No Tori 1 mg, 1 Mem oria 1-24 [place] mL, Route: l 16:54: [place] IVP, Drug Salma nn form: INJ, Q5Min, Dosing Weight 75.909, kg, PRN Other -See Comment, Start date: 10/08/13 10:54:00, Duration: 5 doses or times, Stop date: 10/09/13 0:00:00( me as: Lopressor) Push over 2 minutes ondansetron No Tori 4 mg, 2 Me moria 1-24 [place] mL, Route: l 16:54: [place] IVP, Drug Salma nn form: INJ, ONCE, Dosing Weight 75.909, kg, [...] [place] 0.1 mL, l 16:54: [place] Route: Lead 00 IVP, Drug form: INJ, Q2MIN, Dosing Weight 75.909, kg, PRN Narcotic Reversal, Start date: 10/08/13 10:54:00, Duration: 8 doses or times, Stop date: 10/09/13 0:00:00(Sa me as: Narcan) hydromorpho No Tori 0.5 mg, Me moria ne 1-24 [place] 0.25 mL, l 16:54: [place] Route: Lead 00 IVP, Drug form: INJ, Q5Min, Dosing Weight 75.909, kg, PRN Pain Score 7-10, Start date: 10/08/13 10:54:00, Duration: 4 doses or times, Stop date: 10/09/13 0:00:00( me as: Dilaudid) hydrALAZINE No Tori 10 mg, 0.5 Memoria 1-24 [place] mL, Route: l 16:54: [place] IVP, Drug Salma nn 00 form: INJ, Q20Min, Dosing Weight 75.909, kg, PRN Elevated BP, Start date: 10/08/13 10:54:00, Duration: 2 doses or times, Stop date: 10/09/13 0:00:00( me as: Apresoline ) Push over 5 minutes metoprolol No Tori 1 mg, 1 Mem oria 1-24 [place] mL, Route: l 16:54: [place] IVP, Drug Salma nn 00 form: INJ, Q5Min, Dosing Weight 75.909, kg, PRN Other -See Comment, Start date: 10/08/13 10:54:00, Duration: 5 doses or times, Stop date: 10/09/13 0:00:00( me as: Lopressor) Push over 2 minutes [...] 5 doses or times, Stop date: 10/09/13 0:00:00( me as: Romazicon) naloxone No Tori 0.04 mg, Semaj shashi 1-24 [place] 0.1 mL, l 16:54: [place] Route: Lead 00 IVP, Drug form: INJ, Q2MIN, Dosing Weight 75.909, kg, PRN Narcotic Reversal, Start date: 10/08/13 10:54:00, Duration: 8 doses or times, Stop date: 10/09/13 0:00:00( me as: Narcan) hydromorpho No Tori 0.5 mg, Me moria ne 1-24 [place] 0.25 mL, l 16:54: [place] Route: Lead 00 IVP, Drug form: INJ, Q5Min, Dosing Weight 75.909, kg, PRN Pain Score 7-10, Start date: 10/08/13 10:54:00, Duration: 4 doses or times, Stop date: 10/09/13 0:00:00( me as: Dilaudid) hydrALAZINE No Tori 10 mg, 0.5 Memoria 1-24 [place] mL, Route: l 16:54: [place] IVP, Drug Salma nn 00 form: INJ, Q20Min, Dosing Weight 75.909, kg, PRN Elevated BP, Start date: 10/08/13 10:54:00, Duration: 2 doses or times, Stop date: 10/09/13 0:00:00( me as: Apresoline ) Push over 5 minutes metoprolol No Tori 1 mg, 1 Mem oria 1-24 [place] mL, Route: l 16:54: [place] IVP, Drug Salma nn 00 form: INJ, Q5Min, Dosing Weight 75.909, kg, PRN Other -See Comment, Start date: 10/08/13 10:54:00, Duration: 5 doses or times, Stop date: 10/09/13 0:00:00( me as: Lopressor) Push over 2 minutes [...] 5 doses or times, Stop date: 10/09/13 0:00:00( me as: Romazicon) naloxone No Tori 0.04 mg, Semaj shashi 1-24 [place] 0.1 mL, l 16:54: [place] Route: Vinnie 00 IVP, Drug form: INJ, Q2MIN, Dosing Weight 75.909, kg, PRN Narcotic Reversal, Start date: 10/08/13 10:54:00, Duration: 8 doses or times, Stop date: 10/09/13 0:00:00( me as: Narcan) hydromorpho No Tori 0.5 mg, Me moria ne 1-24 [place] 0.25 mL, l 16:54: [place] Route: Vinnie 00 IVP, Drug form: INJ, Q5Min, Dosing Weight 75.909, kg, PRN Pain Score 7-10, Start date: 10/08/13 10:54:00, Duration: 4 doses or times, Stop date: 10/09/13 0:00:00( me as: Dilaudid) hydrALAZINE No Tori 10 [...] Fer mL, Route: l 16:00: [place] SUB-Q, Vinnie 00 Drug form: INJ, Q12H, Dosing Weight 75.909, kg, Start date: 10/08/13 10:00:00, Duration: 30 day, Stop date: 11/07/13 4:00:00( me as: Lovenox) Lovenox 2013- No Howard 30 mg, 0.3 Mem oria 1-24 Fer mL, Route: l 16:00: [place] SUB-Q, Lead 00 Drug form: INJ, Q12H, Dosing Weight 75.909, kg, Start date: 10/08/13 10:00:00, Duration: 30 day, Stop date: 11/07/13 4:00:00( me as: Lovenox) Lovenox 2013-0 No Howard 30 mg, 0.3 Mem oria 1-24 Fer mL, Route: l 16:00: [place] SUB-Q, Vinnie 00 Drug form: INJ, Q12H, Dosing Weight 75.909, kg, Start date: 10/08/13 10:00:00, Duration: 30 day, Stop date: 11/07/13 4:00:00( me as: Lovenox) Lovenox 2013-0 No Howard 30 mg, 0.3 Mem oria 1-24 Fer mL, Route: l 16:00: [place] SUB-Q, Vinnie 00 Drug form: INJ, Q12H, Dosing Weight 75.909, kg, Start date: 10/08/13 10:00:00, Duration: 30 day, Stop date: 11/07/13 4:00:00(Sa me as: Lovenox) Lovenox 2013-0 No Howard 30 mg, 0.3 Mem oria 1-24 Fer mL, Route: l 16:00: [place] SUB-Q, Vinnie 00 Drug form: INJ, Q12H, Dosing Weight 75.909, kg, Start date: 10/08/13 10:00:00, Duration: 30 day, Stop date: 11/07/13 4:00:00( me as: Lovenox) Lovenox 2013-0 No Howard 30 mg, 0.3 Mem oria 1-24 Fer mL, Route: l 16:00: [place] SUB-Q, Vinnie 00 Drug form: INJ, Q12H, Dosing Weight 75.909, kg, Start date: 10/08/13 10:00:00, Duration: 30 day, Stop date: 11/07/13 4:00:00( me as: Lovenox) Lovenox 2013-0 No Howard 30 mg, 0.3 Mem oria 1-24 Fer mL, Route: l 16:00: Sebastian SUB-Q, Lead 00 Drug form: INJ, Q12H, Dosing Weight 75.909, kg, Start date: 10/08/13 10:00:00, Duration: 30 day, Stop date: 11/07/13 4:00:00( me as: Lovenox) Lovenox 2013-0 No Howard 30 mg, 0.3 Mem oria 1-24 Fer mL, Route: l 16:00: Sebastian SUB-Q, Vinnie 00 Drug form: INJ, Q12H, Dosing Weight 75.909, kg, Start date: 10/08/13 10:00:00, Duration: 30 day, Stop date: 11/07/13 4:00:00( me as: Lovenox) Lovenox 2013-0 No Howard 30 mg, 0.3 Mem oria 1-24 Fer mL, Route: l 16:00: Sebastian SUB-Q, Lead 00 Drug form: INJ, Q12H, Dosing Weight 75.909, kg, Start date: 10/08/13 10:00:00, Duration: 30 day, Stop date: 11/07/13 4:00:00(Sa me as: Lovenox) Lovenox 2013-0 No Howard 30 mg, 0.3 Mem oria 1-24 Fer mL, Route: l 16:00: Sebastian SUB-Q, Lead 00 Drug form: INJ, Q12H, Dosing Weight 75.909, kg, Start date: 10/08/13 10:00:00, Duration: 30 day, Stop date: 11/07/13 4:00:00(Sa me as: Lovenox) Lovenox 2013-0 No Howard 30 mg, 0.3 Mem oria 1-24 Fer mL, Route: l 16:00: Sebastian SUB-Q, Lead 00 Drug form: INJ, Q12H, Dosing Weight 75.909, kg, Start date: 10/08/13 10:00:00, Duration: 30 day, Stop date: 11/07/13 4:00:00(Sa me as: Lovenox) Lovenox 2013-0 No Howard 30 mg, 0.3 Mem oria 1-24 Fer mL, Route: l 16:00: Sebastian SUB-Q, Lead 00 Drug form: INJ, Q12H, Dosing Weight 75.909, kg, Start date: 10/08/13 10:00:00, Duration: 30 day, Stop date: 11/07/13 4:00:00(Sa me as: Lovenox) Lovenox 2013-0 No Howard 30 mg, 0.3 Mem oria 1-24 Fer mL, Route: l 16:00: Sebastian SUB-Q, Vinnie 00 Drug form: INJ, Q12H, Dosing Weight 75.909, kg, Start date: 10/08/13 10:00:00, Duration: 30 day, Stop date: 11/07/13 4:00:00(Sa me as: Lovenox) Lovenox 2013-0 No Howard 30 mg, 0.3 Mem oria 1-24 Fer mL, Route: l 16:00: Sebastian SUB-Q, Vinnie 00 Drug form: INJ, Q12H, Dosing Weight 75.909, kg, Start date: 10/08/13 10:00:00, Duration: 30 day, Stop date: 11/07/13 4:00:00(Sa me as: Lovenox) Lovenox 2013-0 No Howard 30 mg, 0.3 Mem oria 1-24 Fer mL, Route: l 16:00: Sebastian SUB-Q, Lead 00 Drug form: INJ, Q12H, Dosing Weight 75.909, kg, Start date: 10/08/13 10:00:00, Duration: 30 day, Stop date: 11/07/13 4:00:00( me as: Lovenox) Lovenox 2013-0 No Howard 30 mg, 0.3 Mem oria 1-24 Fer mL, Route: l 16:00: Sebastian SUB-Q, Lead 00 Drug form: INJ, Q12H, Dosing Weight 75.909, kg, Start date: 10/08/13 10:00:00, Duration: 30 day, Stop date: 11/07/13 4:00:00( me as: Lovenox) Lovenox 2013-0 No Howard 30 mg, 0.3 Mem oria 1-24 Fer mL, Route: l 16:00: Sebastian SUB-Q, Lead Drug form: INJ, Q12H, Dosing Weight 75.909, kg, Start date: 10/08/13 10:00:00, Duration: 30 day, Stop date: 11/07/13 4:00:00( me as: Lovenox) Lovenox 2013-0 No Howard 30 mg, 0.3 Mem oria 1-24 Fer mL, Route: l 16:00: Sebastian SUB-Q, Vinnie 00 Drug form: INJ, Q12H, Dosing Weight 75.909, kg, Start date: 10/08/13 10:00:00, Duration: 30 day, Stop date: 11/07/13 4:00:00( me as: Lovenox) Lovenox 2013-0 No Howard 30 mg, 0.3 Mem oria 1-24 Fer mL, Route: l 16:00: Sebastian SUB-Q, Lead 00 Drug form: INJ, Q12H, Dosing Weight 75.909, kg, Start date: 10/08/13 10:00:00, Duration: 30 day, Stop date: 11/07/13 4:00:00(Sa me as: Lovenox) Lovenox 2013-0 No Howard 30 mg, 0.3 Mem oria 1-24 Fer mL, Route: l 16:00: Sebastian SUB-Q, Lead 00 Drug form: INJ, Q12H, Dosing Weight 75.909, kg, Start date: 10/08/13 10:00:00, Duration: 30 day, Stop date: 11/07/13 4:00:00(Sa me as: Lovenox) Lovenox 2013-0 No Howard 30 mg, 0.3 Mem oria 1-24 Fer mL, Route: l 16:00: Sebastian SUB-Q, Vinnie 00 Drug form: INJ, Q12H, Dosing Weight 75.909, kg, Start date: 10/08/13 10:00:00, Duration: 30 day, Stop date: 11/07/13 4:00:00(Sa me as: Lovenox) Lovenox 2013-0 No Howard 30 mg, 0.3 Mem oria 1-24 Fer mL, Route: l 16:00: Sebastian SUB-Q, Vinnie 00 Drug form: INJ, Q12H, Dosing Weight 75.909, kg, Start date: 10/08/13 10:00:00, Duration: 30 day, Stop date: 11/07/13 4:00:00( me as: Lovenox) Lovenox 2013-0 No Howard 30 mg, 0.3 Mem oria 1-24 Fer mL, Route: l 16:00: Sebastian SUB-Q, Vinnie 00 Drug form: INJ, Q12H, Dosing Weight 75.909, kg, Start date: 10/08/13 10:00:00, Duration: 30 day, Stop date: 11/07/13 4:00:00( me as: Lovenox) Lovenox 2013-0 No Howard 30 mg, 0.3 Mem oria 1-24 Fer mL, Route: l 16:00: Sebastian SUB-Q, Lead 00 Drug form: INJ, Q12H, Dosing Weight 75.909, kg, Start date: 10/08/13 10:00:00, Duration: 30 day, Stop date: 11/07/13 4:00:00(Sa me as: Lovenox) Lovenox 2013-0 No Howard 30 mg, 0.3 Mem oria 1-24 Fer mL, Route: l 16:00: Sebastian SUB-Q, Lead 00 Drug form: INJ, Q12H, Dosing Weight 75.909, kg, Start date: 10/08/13 10:00:00, Duration: 30 day, Stop date: 11/07/13 4:00:00(Sa me as: Lovenox) Lovenox 2014-0 No Howard 30 mg, 0.3 Mem oria 1-24 Fer mL, Route: l 16:00: Sebastian SUB-Q, Lead 00 Drug form: INJ, Q12H, Dosing Weight 75.909, kg, Start date: 10/08/13 10:00:00, Duration: 30 day, Stop date: 11/07/13 4:00:00(Sa me as: Lovenox) Lovenox 2014-0 No Howard 30 mg, 0.3 Mem oria 1-24 Fer mL, Route: l 16:00: Sebastian SUB-Q, Lead 00 Drug form: INJ, Q12H, Dosing Weight 75.909, kg, Start date: 10/08/13 10:00:00, Duration: 30 day, Stop date: 11/07/13 4:00:00(Sa me as: Lovenox) Sodium 2014-0 No Ronit 250 mL, Memor ia Chloride 1-24 Diana Rate: On l 0.9% 03:42: Joo call for Salma nn (titrate) 00 use with 250 mL blood product administra tion, Dosing Weight 75.909, kg, Route: IV, Total Volume: 250, Start Date: 10/07/13 21:42:00, Duration: 30 day, Stop date: 11/06/13 21:41:00, Replace Every: 24 hr Sodium 2014-0 No Ronit 250 mL, Memor ia Chloride 1-24 Diana Rate: On l 0.9% 03:42: Joo call for Salma nn (titrate) 00 use with 250 mL blood product administra tion, Dosing Weight 75.909, kg, Route: IV, Total Volume: 250, Start Date: 10/07/13 21:42:00, Duration: 30 day, Stop date: 11/06/13 21:41:00, Replace Every: 24 hr Sodium 2014-0 No Ronit 250 mL, Memor ia Chloride 1-24 Diana Rate: On l 0.9% 03:42: Joo call for Salma nn (titrate) 00 use with 250 mL blood product administra tion, Dosing Weight 75.909, kg, Route: IV, Total Volume: 250, Start Date: 10/07/13 21:42:00, Duration: 30 day, Stop date: 11/06/13 21:41:00, Replace Every: 24 hr Sodium 2014-0 No Ronit 250 mL, Memor ia Chloride 1-24 Diana Rate: On l 0.9% 03:42: Joo call for Salma nn (titrate) 00 use with 250 mL blood product administra tion, Dosing Weight 75.909, kg, Route: IV, Total Volume: 250, Start Date: 10/07/13 21:42:00, Duration: 30 day, Stop date: 11/06/13 21:41:00, Replace Every: 24 hr Sodium 2014-0 No Ronit 250 mL, Memor ia Chloride 1-24 Diana Rate: On l 0.9% 03:42: Joo call for Salma nn (titrate) 00 use with 250 mL blood product administra tion, Dosing Weight 75.909, kg, Route: IV, Total Volume: 250, Start Date: 10/07/13 21:42:00, Duration: 30 day, Stop date: 11/06/13 21:41:00, Replace Every: 24 hr Sodium 2014-0 No Ronit 250 mL, Memor ia Chloride 1-24 Diana Rate: On l 0.9% 03:42: Joo call for Salma nn (titrate) 00 use with 250 mL blood product administra tion, Dosing Weight 75.909, kg, Route: IV, Total Volume: 250, Start Date: 10/07/13 21:42:00, Duration: 30 day, Stop date: 11/06/13 21:41:00, Replace Every: 24 hr Sodium 2014-0 No Ronit 250 mL, Memor ia Chloride 1-24 Diana Rate: On l 0.9% 03:42: Joo call for Salma nn (titrate) 00 use with 250 mL blood product administra tion, Dosing Weight 75.909, kg, Route: IV, Total Volume: 250, Start Date: 10/07/13 21:42:00, Duration: 30 day, Stop date: 11/06/13 21:41:00, Replace Every: 24 hr Sodium 2014-0 No Ronit 250 mL, Memor ia Chloride 1-24 Diana Rate: On l 0.9% 03:42: Joo call for Salma nn (titrate) 00 use with 250 mL blood product administra tion, Dosing Weight 75.909, kg, Route: IV, Total Volume: 250, Start Date: 10/07/13 21:42:00, Duration: 30 day, Stop date: 11/06/13 21:41:00, Replace Every: 24 hr Sodium 2014-0 No Ronit 250 mL, Memor ia Chloride 1-24 Diana Rate: On l 0.9% 03:42: Joo call for Salma nn (titrate) 00 use with 250 mL blood product administra tion, Dosing Weight 75.909, kg, Route: IV, Total Volume: 250, Start Date: 10/07/13 21:42:00, Duration: 30 day, Stop date: 11/06/13 21:41:00, Replace Every: 24 hr Sodium 2014-0 No Ronit 250 mL, Memor ia Chloride 1-24 Diana Rate: On l 0.9% 03:42: Joo call for Salma nn (titrate) 00 use with 250 mL blood product administra tion, Dosing Weight 75.909, kg, Route: IV, Total Volume: 250, Start Date: 10/07/13 21:42:00, Duration: 30 day, Stop date: 11/06/13 21:41:00, Replace Every: 24 hr Sodium 2014-0 No Ronit 250 mL, Memor ia Chloride 1-24 Diana Rate: On l 0.9% 03:42: Joo call for Salma nn (titrate) 00 use with 250 mL blood product administra tion, Dosing Weight 75.909, kg, Route: IV, Total Volume: 250, Start Date: 10/07/13 21:42:00, Duration: 30 day, Stop date: 11/06/13 21:41:00, Replace Every: 24 hr Sodium 2014-0 No Ronit 250 mL, Memor ia Chloride 1-24 Diana Rate: On l 0.9% 03:42: Joo call for Salma nn (titrate) 00 use with 250 mL blood product administra tion, Dosing Weight 75.909, kg, Route: IV, Total Volume: 250, Start Date: 10/07/13 21:42:00, Duration: 30 day, Stop date: 11/06/13 21:41:00, Replace Every: 24 hr Sodium 2014-0 No Ronit 250 mL, Memor ia Chloride 1-24 Diana Rate: On l 0.9% 03:42: Joo call for Salma nn (titrate) 00 use with 250 mL blood product administra tion, Dosing Weight 75.909, kg, Route: IV, Total Volume: 250, Start Date: 10/07/13 21:42:00, Duration: 30 day, Stop date: 11/06/13 21:41:00, Replace Every: 24 hr Sodium 2014-0 No Ronit 250 mL, Memor ia Chloride 1-24 Diana Rate: On l 0.9% 03:42: Joo call for Salma nn (titrate) 00 use with 250 mL blood product administra tion, Dosing Weight 75.909, kg, Route: IV, Total Volume: 250, Start Date: 10/07/13 21:42:00, Duration: 30 day, Stop date: 11/06/13 21:41:00, Replace Every: 24 hr Sodium 2014-0 No Ronit 250 mL, Memor ia Chloride 1-24 Diana Rate: On l 0.9% 03:42: Joo call for Salma nn (titrate) 00 use with 250 mL blood product administra tion, Dosing Weight 75.909, kg, Route: IV, Total Volume: 250, Start Date: 10/07/13 21:42:00, Duration: 30 day, Stop date: 11/06/13 21:41:00, Replace Every: 24 hr Sodium 2014-0 No Ronit 250 mL, Memor ia Chloride 1-24 Diana Rate: On l 0.9% 03:42: Joo call for Salma nn (titrate) 00 use with 250 mL blood product administra tion, Dosing Weight 75.909, kg, Route: IV, Total Volume: 250, Start Date: 10/07/13 21:42:00, Duration: 30 day, Stop date: 11/06/13 21:41:00, Replace Every: 24 hr Sodium 2014-0 No Ronit 250 mL, Memor ia Chloride 1-24 Diana Rate: On l 0.9% 03:42: Joo call for Salma nn (titrate) 00 use with 250 mL blood product administra tion, Dosing Weight 75.909, kg, Route: IV, Total Volume: 250, Start Date: 10/07/13 21:42:00, Duration: 30 day, Stop date: 11/06/13 21:41:00, Replace Every: 24 hr Sodium 2014-0 No Ronit 250 mL, Memor ia Chloride 1-24 Diana Rate: On l 0.9% 03:42: Joo call for Salma nn (titrate) 00 use with 250 mL blood product administra tion, Dosing Weight 75.909, kg, Route: IV, Total Volume: 250, Start Date: 10/07/13 21:42:00, Duration: 30 day, Stop date: 11/06/13 21:41:00, Replace Every: 24 hr Sodium 2014-0 No Ronit 250 mL, Memor ia Chloride 1-24 Diana Rate: On l 0.9% 03:42: Joo call for Salma nn (titrate) 00 use with 250 mL blood product administra tion, Dosing Weight 75.909, kg, Route: IV, Total Volume: 250, Start Date: 10/07/13 21:42:00, Duration: 30 day, Stop date: 11/06/13 21:41:00, Replace Every: 24 hr Sodium 2014-0 No Ronit 250 mL, Memor ia Chloride 1-24 Diana Rate: On l 0.9% 03:42: Joo call for Salma nn (titrate) 00 use with 250 mL blood product administra tion, Dosing Weight 75.909, kg, Route: IV, Total Volume: 250, Start Date: 10/07/13 21:42:00, Duration: 30 day, Stop date: 11/06/13 21:41:00, Replace Every: 24 hr Sodium 2014-0 No Ronit 250 mL, Memor ia Chloride 1-24 Diana Rate: On l 0.9% 03:42: Joo call for Salma nn (titrate) 00 use with 250 mL blood product administra tion, Dosing Weight 75.909, kg, Route: IV, Total Volume: 250, Start Date: 10/07/13 21:42:00, Duration: 30 day, Stop date: 11/06/13 21:41:00, Replace Every: 24 hr Sodium 2014-0 No Ronit 250 mL, Memor ia Chloride 1-24 Diana Rate: On l 0.9% 03:42: Joo call for Salma nn (titrate) 00 use with 250 mL blood product administra tion, Dosing Weight 75.909, kg, Route: IV, Total Volume: 250, Start Date: 10/07/13 21:42:00, Duration: 30 day, Stop date: 11/06/13 21:41:00, Replace Every: 24 hr Sodium 2014-0 No Ronit 250 mL, Memor ia Chloride 1-24 Diana Rate: On l 0.9% 03:42: Joo call for Salma nn (titrate) 00 use with 250 mL blood product administra tion, Dosing Weight 75.909, kg, Route: IV, Total Volume: 250, Start Date: 10/07/13 21:42:00, Duration: 30 day, Stop date: 11/06/13 21:41:00, Replace Every: 24 hr Sodium 2014-0 No Ronit 250 mL, Memor ia Chloride 1-24 Diana Rate: On l 0.9% 03:42: Joo call for Salma nn (titrate) 00 use with 250 mL blood product administra tion, Dosing Weight 75.909, kg, Route: IV, Total Volume: 250, Start Date: 10/07/13 21:42:00, Duration: 30 day, Stop date: 11/06/13 21:41:00, Replace Every: 24 hr Sodium 2014-0 No Ronit 250 mL, Memor ia Chloride 1-24 Diana Rate: On l 0.9% 03:42: Joo call for Salma nn (titrate) 00 use with 250 mL blood product administra tion, Dosing Weight 75.909, kg, Route: IV, Total Volume: 250, Start Date: 10/07/13 21:42:00, Duration: 30 day, Stop date: 11/06/13 21:41:00, Replace Every: 24 hr Sodium 2013-0 No Ronit 250 mL, Memor ia Chloride 1-24 Diana Rate: On l 0.9% 03:42: Joo call for Salma nn (titrate) 00 use with 250 mL blood product administra tion, Dosing Weight 75.909, kg, Route: IV, Total Volume: 250, Start Date: 10/07/13 21:42:00, Duration: 30 day, Stop date: 11/06/13 21:41:00, Replace Every: 24 hr Sodium 2013-0 No Ronit 250 mL, Memor ia Chloride 1-24 Diana Rate: On l 0.9% 03:42: Joo call for Salma nn (titrate) 00 use with 250 mL blood product administra tion, Dosing Weight 75.909, kg, Route: IV, Total Volume: 250, Start Date: 10/07/13 21:42:00, Duration: 30 day, Stop date: 11/06/13 21:41:00, Replace Every: 24 hr budesonide 0 No Galilea budesonide Memoria 180 mcg/inh 1-23 Avis Stef 180 l PWD 120 23:00: mcg/inh Vinnie dose 00 PWD 120 dose, 1 inhalation , Drug form: MISC, Route: INHALATION , BID, 10/07/13 17:00:00, Duration: 30 day, Stop date: 11/06/13 9:00:00 budesonide 2013-0 No Galilea budesonide Memoria 180 mcg/inh 1-23 Avis Stef 180 l PWD 120 23:00: mcg/inh Vinnie dose 00 PWD 120 dose, 1 inhalation , Drug form: MISC, Route: INHALATION , BID, 10/07/13 17:00:00, Duration: 30 day, Stop date: 11/06/13 9:00:00 budesonide 2013-0 No Galilea budesonide Memoria 180 mcg/inh 1-23 Avis Stef 180 l PWD 120 23:00: mcg/inh Vinnie dose 00 PWD 120 dose, 1 inhalation , Drug form: MISC, Route: INHALATION , BID, 10/07/13 17:00:00, Duration: 30 day, Stop date: 11/06/13 9:00:00 budesonide 0 No Galilea budesonide Memoria 180 mcg/inh 1-23 Avis Stef 180 l PWD 120 23:00: mcg/inh Vinnie dose 00 PWD 120 dose, 1 inhalation , Drug form: MISC, Route: INHALATION , BID, 10/07/13 17:00:00, Duration: 30 day, Stop date: 11/06/13 9:00:00 budesonide 0 No Galilea budesonide Memoria 180 mcg/inh 1-23 Avis Stef 180 l PWD 120 23:00: mcg/inh Lead dose 00 PWD 120 dose, 1 inhalation , Drug form: MISC, Route: INHALATION , BID, 10/07/13 17:00:00, Duration: 30 day, Stop date: 11/06/13 9:00:00 budesonide 0 No Galilea budesonide Memoria 180 mcg/inh 1-23 Avis Stef 180 l PWD 120 23:00: mcg/inh Lead dose 00 PWD 120 dose, 1 inhalation , Drug form: MISC, Route: INHALATION , BID, 10/07/13 17:00:00, Duration: 30 day, Stop date: 11/06/13 9:00:00 budesonide 0 No Galilea budesonide Memoria 180 mcg/inh 1-23 Avis Stef 180 l PWD 120 23:00: mcg/inh Lead dose 00 PWD 120 dose, 1 inhalation , Drug form: MISC, Route: INHALATION , BID, 10/07/13 17:00:00, Duration: 30 day, Stop date: 11/06/13 9:00:00 budesonide 0 No Galilea budesonide Memoria 180 mcg/inh 1-23 Avis Stef 180 l PWD 120 23:00: mcg/inh Vinnie dose 00 PWD 120 dose, 1 inhalation , Drug form: MISC, Route: INHALATION , BID, 10/07/13 17:00:00, Duration: 30 day, Stop date: 11/06/13 9:00:00 budesonide 0 No Galilea budesonide Memoria 180 mcg/inh 1-23 Avis Stef 180 l PWD 120 23:00: mcg/inh Vinnie dose 00 PWD 120 dose, 1 inhalation , Drug form: MISC, Route: INHALATION , BID, 10/07/13 17:00:00, Duration: 30 day, Stop date: 11/06/13 9:00:00 budesonide 2013-0 No Galilea budesonide Memoria 180 mcg/inh 1-23 Avis Stef 180 l PWD 120 23:00: mcg/inh Lead dose 00 PWD 120 dose, 1 inhalation , Drug form: MISC, Route: INHALATION , BID, 10/07/13 17:00:00, Duration: 30 day, Stop date: 11/06/13 9:00:00 budesonide 0 No Galilea budesonide Memoria 180 mcg/inh 1-23 Avis Stef 180 l PWD 120 23:00: mcg/inh Lead dose 00 PWD 120 dose, 1 inhalation , Drug form: MISC, Route: INHALATION , BID, 10/07/13 17:00:00, Duration: 30 day, Stop date: 11/06/13 9:00:00 budesonide 2013-0 No Galilea budesonide Memoria 180 mcg/inh 1-23 Avis Stef 180 l PWD 120 23:00: mcg/inh Lead dose 00 PWD 120 dose, 1 inhalation , Drug form: MISC, Route: INHALATION , BID, 10/07/13 17:00:00, Duration: 30 day, Stop date: 11/06/13 9:00:00 budesonide 2013-0 No Galilea budesonide Memoria 180 mcg/inh 1-23 Avis Stef 180 l PWD 120 23:00: mcg/inh Vinnie dose 00 PWD 120 dose, 1 inhalation , Drug form: MISC, Route: INHALATION , BID, 10/07/13 17:00:00, Duration: 30 day, Stop date: 11/06/13 9:00:00 budesonide 2013-0 No Galilea budesonide Memoria 180 mcg/inh 1-23 Avis Stef 180 l PWD 120 23:00: mcg/inh Vinnie dose 00 PWD 120 dose, 1 inhalation , Drug form: MISC, Route: INHALATION , BID, 10/07/13 17:00:00, Duration: 30 day, Stop date: 11/06/13 9:00:00 budesonide 2013-0 No Galilea budesonide Mem[facility] 180 mcg/inh 1-23 Avis Stef 180 l PWD 120 23:00: mcg/inh Lead dose 00 PWD 120 dose, 1 inhalation , Drug form: MISC, Route: INHALATION , BID, 10/07/13 17:00:00, Duration: 30 day, Stop date: 11/06/13 9:00:00 budesonide 2013-0 No Galilea budesonide Memoria 180 mcg/inh 1-23 Avis Stef 180 l PWD 120 23:00: mcg/inh Lead dose 00 PWD 120 dose, 1 inhalation , Drug form: MISC, Route: INHALATION , BID, 10/07/13 17:00:00, Duration: 30 day, Stop date: 11/06/13 9:00:00 budesonide 2013-0 No Galilea budesonide Memoria 180 mcg/inh 1-23 Avis Stef 180 l PWD 120 23:00: mcg/inh Lead dose 00 PWD 120 dose, 1 inhalation , Drug form: MISC, Route: INHALATION , BID, 10/07/13 17:00:00, Duration: 30 day, Stop date: 11/06/13 9:00:00 budesonide 0 No [facility] budesonide Memoria 180 mcg/inh 1-23 Avis Stef 180 l PWD 120 23:00: mcg/inh Lead dose 00 PWD 120 dose, 1 inhalation , Drug form: MISC, Route: INHALATION , BID, 10/07/13 17:00:00, Duration: 30 day, Stop date: 11/06/13 9:00:00 budesonide 2013-0 No [facility]a budesonide Mem[facility] 180 mcg/inh 1-23 Avis Stef 180 l PWD 120 23:00: mcg/inh Lead dose 00 PWD 120 dose, 1 inhalation , Drug form: MISC, Route: INHALATION , BID, 10/07/13 17:00:00, Duration: 30 day, Stop date: 11/06/13 9:00:00 budesonide 2013-0 No [facility]a budesonide Mem[facility] 180 mcg/inh 1-23 Avis Stef 180 l PWD 120 23:00: mcg/inh Vinnie dose 00 PWD 120 dose, 1 inhalation , Drug form: MISC, Route: INHALATION , BID, 10/07/13 17:00:00, Duration: 30 day, Stop date: 11/06/13 9:00:00 budesonide 2013-0 No [facility] budesonide Mem[facility] 180 mcg/inh 1-23 Avis Stef 180 l PWD 120 23:00: mcg/inh Vinnie dose 00 PWD 120 dose, 1 inhalation , Drug form: MISC, Route: INHALATION , BID, 10/07/13 17:00:00, Duration: 30 day, Stop date: 11/06/13 9:00:00 budesonide 2013-0 No [facility]a budesonide Mem[facility] 180 mcg/inh 1-23 Avis Stef 180 l PWD 120 23:00: mcg/inh Lead dose 00 PWD 120 dose, 1 inhalation , Drug form: MISC, Route: INHALATION , BID, 10/07/13 17:00:00, Duration: 30 day, Stop date: 11/06/13 9:00:00 budesonide 0 No [facility] budesonide [facility] 180 mcg/inh 1-23 Avis Stef 180 l PWD 120 23:00: mcg/inh Vinnie dose 00 PWD 120 dose, 1 inhalation , Drug form: MISC, Route: INHALATION , BID, 10/07/13 17:00:00, Duration: 30 day, Stop date: 11/06/13 9:00:00 budesonide 2013-0 No [facility] budesonide [facility] 180 mcg/inh 1-23 Avis Stef 180 l PWD 120 23:00: mcg/inh Lead dose 00 PWD 120 dose, 1 inhalation , Drug form: MISC, Route: INHALATION , BID, 10/07/13 17:00:00, Duration: 30 day, Stop date: 11/06/13 9:00:00 budesonide 2013-0 No [facility] budesonide Mem[facility] 180 mcg/inh 1-23 Avis Stef 180 l PWD 120 23:00: mcg/inh Vinnie dose 00 PWD 120 dose, 1 inhalation , Drug form: MISC, Route: INHALATION , BID, 10/07/13 17:00:00, Duration: 30 day, Stop date: 11/06/13 9:00:00 budesonide 2013-0 No [facility]a budesonide [facility] 180 mcg/inh 1-23 Avis Stef 180 l PWD 120 23:00: mcg/inh Lead dose 00 PWD 120 dose, 1 inhalation , Drug form: MISC, Route: INHALATION , BID, 10/07/13 17:00:00, Duration: 30 day, Stop date: 11/06/13 9:00:00 budesonide No [facility] budesonide [facility] 180 mcg/inh 10-07 Avis Stef 180 l PWD 120 23:00: mcg/inh Lead dose 00 PWD 120 dose, 1 inhalation [...] Galilea 10 mg, 1 Memoria 10-07 Avis Setf tab, l 03:00: Route: PO, Vinnie 00 Drug form: TAB, Bedtime, Dosing Weight 78.182, kg, Start date: 10/06/13 21:00:00, Duration: 30 day, Stop date: 11/04/13 21:00:00(S sharron as:Singula ir) Alrex 0.2% No Galilea 1 drp, M emoria ophthalmic 10-07 Avis Stef Route: l suspension 03:00: BOTH EYES, H ermann 00 Bedtime, Drug form: SUSP, Start date: 10/06/13 21:00:00, Duration: 30 day, Stop date: 11/04/13 21:00:00(S sharron as: Lotemax) montelukast No Galilea 10 mg, 1 Memoria 10-07 Avis Stef tab, l 03:00: Route: PO, Lead 00 Drug form: TAB, Bedtime, Dosing Weight 78.182, kg, Start date: 10/06/13 21:00:00, Duration: 30 day, Stop date: 11/04/13 21:00:00(S sharron as:Singula ir) Alrex 0.2% No Galilea 1 drp, M emoria ophthalmic 10-07 Avis Stef Route: l suspension 03:00: BOTH EYES, H ermann 00 Bedtime, Drug form: SUSP, Start date: 10/06/13 21:00:00, Duration: 30 day, Stop date: 11/04/13 21:00:00(S sharron as: Lotemax) montelukast No Galilea 10 mg, 1 Memoria 10-07 Avis Stef tab, l 03:00: Route: PO, Lead 00 Drug form: TAB, Bedtime, Dosing Weight 78.182, kg, Start date: 10/06/13 21:00:00, Duration: 30 day, Stop date: 11/04/13 21:00:00(S sharron as:Singula ir) Alrex 0.2% No Galilea 1 drp, M emoria ophthalmic 10-07 Avis Stef Route: l suspension 03:00: BOTH EYES, H ermann 00 Bedtime, Drug form: SUSP, Start date: 10/06/13 21:00:00, Duration: 30 day, Stop date: 11/04/13 21:00:00(S sharron as: Lotemax) montelukast No [facility]a 10 mg, 1 Memoria 10-07 Avis Stef tab, l 03:00: Route: PO, Lead 00 Drug form: TAB, Bedtime, Dosing Weight 78.182, kg, Start date: 10/06/13 21:00:00, Duration: 30 day, Stop date: 11/04/13 21:00:00(S sharron as:Singula ir) Alrex 0.2% No Galilea 1 drp, M emoria ophthalmic 10-07 Avis Stef Route: l suspension 03:00: BOTH EYES, H ermann 00 Bedtime, Drug form: SUSP, Start date: 10/06/13 21:00:00, Duration: 30 day, Stop date: 11/04/13 21:00:00(S sharron as: Lotemax) montelukast No Galilea 10 mg, 1 Memoria - Avis Stef tab, l 03:00: Route: PO, Vinnie 00 Drug form: TAB, Bedtime, Dosing Weight 78.182, kg, Start date: 10/06/13 21:00:00, Duration: 30 day, Stop date: 11/04/13 21:00:00(S sharron as:Singula ir) Alrex 0.2% No Galile[facility] 1 drp, M emoria ophthalmic 10-07 Avis Stef Route: l suspension 03:00: BOTH EYES, H ermann 00 Bedtime, Drug form: SUSP, Start date: 10/06/13 21:00:00, Duration: 30 day, Stop date: 11/04/13 21:00:00(S sharron as: Lotemax) montelukast No [facility] 10 mg, 1 Memoria 10-07 Avis Stef tab, l 03:00: Route: PO, Vinnie 00 Drug form: TAB, Bedtime, Dosing Weight 78.182, kg, Start date: 10/06/13 21:00:00, Duration: 30 day, Stop date: 11/04/13 21:00:00(S sharron as:Singula ir) Alrex 0.2% No Galile[facility] 1 drp, M emoria ophthalmic 10-07 Avis Stef Route: l suspension 03:00: BOTH EYES, H ermann 00 Bedtime, Drug form: SUSP, Start date: 10/06/13 21:00:00, Duration: 30 day, Stop date: 11/04/13 21:00:00(S sharron as: Lotemax) montelukast 0 No [facility] 10 mg, 1 Memoria 10-07 Avis Stef tab, l 03:00: Route: PO, Lead 00 Drug form: TAB, Bedtime, Dosing Weight 78.182, kg, Start date: 10/06/13 21:00:00, Duration: 30 day, Stop date: 11/04/13 21:00:00(S sharron as:Singula ir) Alrex 0.2% No Galile[facility] 1 drp, M emoria ophthalmic 10-07 Avis Stef Route: l suspension 03:00: BOTH EYES, H ermann 00 Bedtime, Drug form: SUSP, Start date: 10/06/13 21:00:00, Duration: 30 day, Stop date: 11/04/13 21:00:00(S sharron as: Lotemax) montelukast No [facility] 10 mg, 1 Memoria 10-07 Avis Stef tab, l 03:00: Route: PO, Vinnie 00 Drug form: TAB, Bedtime, Dosing Weight 78.182, kg, Start date: 10/06/13 21:00:00, Duration: 30 day, Stop date: 11/04/13 21:00:00(S sharron as:Singula ir) Alrex 0.2% No Galile[facility] 1 drp, M emoria ophthalmic 10-07 Avis Stef Route: l suspension 03:00: BOTH EYES, H ermann 00 Bedtime, Drug form: SUSP, Start date: 10/06/13 21:00:00, Duration: 30 day, Stop date: 11/04/13 21:00:00(S sharron as: Lotemax) montelukast No [facility] 10 mg, 1 Memoria 10-07 Avis Stef tab, l 03:00: Route: PO, Vinnie 00 Drug form: TAB, Bedtime, Dosing Weight 78.182, kg, Start date: 10/06/13 21:00:00, Duration: 30 day, Stop date: 11/04/13 21:00:00(S sharron as:Singula ir) Alrex 0.2% No [facility] 1 drp, M emoria ophthalmic 10-07 Avis Stef Route: l suspension 03:00: BOTH EYES, H ermann 00 Bedtime, Drug form: SUSP, Start date: 10/06/13 21:00:00, Duration: 30 day, Stop date: 11/04/13 21:00:00(S sharron as: Lotemax) montelukast No [facility] 10 mg, 1 [facility]oria 10-07 Avis Stef tab, l 03:00: Route: PO, Lead 00 Drug form: TAB, Bedtime, Dosing Weight 78.182, kg, Start date: 10/06/13 21:00:00, Duration: 30 day, Stop date: 11/04/13 21:00:00(S sharron as:Singula ir) Alrex 0.2% No [facility] 1 drp, M emoria ophthalmic - Avis Stef Route: l suspension 03:00: BOTH EYES, H ermann 00 Bedtime, Drug form: SUSP, Start date: 10/06/13 21:00:00, Duration: 30 day, Stop date: 11/04/13 21:00:00(S sharron as: Lotemax) montelukast No [place] 10 mg, 1 [facility] 10-07 Avis Stef tab, l 03:00: Route: PO, Lead 00 Drug form: TAB, Bedtime, Dosing Weight 78.182, kg, Start date: 10/06/13 21:00:00, Duration: 30 day, Stop date: 11/04/13 21:00:00(S sharron as:Singula ir) Alrex 0.2% No [place] 1 drp, M [facility] 10-07 Avis Stef Route: l suspension 03:00: BOTH EYES, H ermann 00 Bedtime, Drug form: SUSP, Start date: 10/06/13 21:00:00, Duration: 30 day, Stop date: 11/04/13 21:00:00(S sharron as: Lotemax) montelukast No [place] 10 mg, 1 [facility] 10-07 Avis Stef tab, l 03:00: Route: PO, Lead 00 Drug form: TAB, Bedtime, Dosing Weight 78.182, kg, Start date: 10/06/13 21:00:00, Duration: 30 day, Stop date: 11/04/13 21:00:00(S sharron as:Singula ir) Alrex 0.2% No [place] 1 drp, M [facility] 10-07 Avis Stef Route: l suspension 03:00: BOTH EYES, H ermann 00 Bedtime, Drug form: SUSP, Start date: 10/06/13 21:00:00, Duration: 30 day, Stop date: 11/04/13 21:00:00(S sharron as: Lotemax) montelukast 2013-0 No [place] 10 mg, 1 [facility] - Avis Stef tab, l 03:00: Route: PO, Lead 00 Drug form: TAB, Bedtime, Dosing Weight 78.182, kg, Start date: 10/06/13 21:00:00, Duration: 30 day, Stop date: 11/04/13 21:00:00(S sharron as:Singula ir) Alrex 0.2% No [place] 1 drp, M [facility] 10-07 Avis Stef Route: l suspension 03:00: BOTH EYES, H ermann 00 Bedtime, Drug form: SUSP, Start date: 10/06/13 21:00:00, Duration: 30 day, Stop date: 11/04/13 21:00:00(S sharron as: Lotemax) montelukast No [place] 10 mg, 1 [facility] 10-07 Avis Stef tab, l 03:00: Route: PO, Vinnie 00 Drug form: TAB, Bedtime, Dosing Weight 78.182, kg, Start date: 10/06/13 21:00:00, Duration: 30 day, Stop date: 11/04/13 21:00:00(S sharron as:Singula ir) Alrex 0.2% No [place] 1 drp, M [facility] 10-07 Avis Stef Route: l suspension 03:00: BOTH EYES, H ermann 00 Bedtime, Drug form: SUSP, Start date: 10/06/13 21:00:00, Duration: 30 day, Stop date: 11/04/13 21:00:00(S sharron as: Lotemax) montelukast 0 No [place] 10 mg, 1 [facility] 10-07 Avis Stef tab, l 03:00: Route: PO, Vinnie 00 Drug form: TAB, Bedtime, Dosing Weight 78.182, kg, Start date: 10/06/13 21:00:00, Duration: 30 day, Stop date: 11/04/13 21:00:00(S sharron as:Singula ir) Alrex 0.2% 0 No [place] 1 drp, M [facility] Avis Finch Route: l suspension 03:00: BOTH EYES, H ermann 00 Bedtime, Drug form: SUSP, Start date: 10/06/13 21:00:00, Duration: 30 day, Stop date: 11/04/13 21:00:00(S sharron as: Lotemax) montelukast No [place] 10 mg, 1 [facility]07 Avis Stef tab, l 03:00: Route: PO, Lead 00 Drug form: TAB, Bedtime, Dosing Weight 78.182, kg, Start date: 10/06/13 21:00:00, Duration: 30 day, Stop date: 11/04/13 21:00:00(S sharron as:Singula ir) Alrex 0.2% No [place] 1 drp, M [facility]07 Avis Finch Route: l suspension 03:00: BOTH EYES, H ermann 00 Bedtime, Drug form: SUSP, Start date: 10/06/13 21:00:00, Duration: 30 day, Stop date: 11/04/13 21:00:00(S sharron as: Lotemax) montelukast No [place] 10 mg, 1 [facility] 10[facility]07 Avis Stef tab, l 03:00: Route: PO, Lead 00 Drug form: TAB, Bedtime, Dosing Weight 78.182, kg, Start date: 10/06/13 21:00:00, Duration: 30 day, Stop date: 11/04/13 21:00:00(S sharron as:Singula ir) Alrex 0.2% No [place] 1 drp, M [facility]07 Avis Stef Route: l suspension 03:00: BOTH EYES, H ermann 00 Bedtime, Drug form: SUSP, Start date: 10/06/13 21:00:00, Duration: 30 day, Stop date: 11/04/13 21:00:00(S sharron as: Lotemax) montelukast No [place] 10 mg, 1 [facility] 10[facility]07 Avis Stef tab, l 03:00: Route: PO, Lead 00 Drug form: TAB, Bedtime, Dosing Weight 78.182, kg, Start date: 10/06/13 21:00:00, Duration: 30 day, Stop date: 11/04/13 21:00:00(S sharron as:Singula ir) Alrex 0.2% No [place] 1 drp, M [facility]07 Avis Stef Route: l suspension 03:00: BOTH EYES, H ermann 00 Bedtime, Drug form: SUSP, Start date: 10/06/13 21:00:00, Duration: 30 day, Stop date: 11/04/13 21:00:00(S sharron as: Lotemax) montelukast No [place] 10 mg, 1 [facility] 10[facility]07 Avis Stef tab, l 03:00: Route: PO, Lead 00 Drug form: TAB, Bedtime, Dosing Weight 78.182, kg, Start date: 10/06/13 21:00:00, Duration: 30 day, Stop date: 11/04/13 21:00:00(S sharron as:Singula ir) Alrex 0.2% No [place] 1 drp, M [facility]07 Avis Stef Route: l suspension 03:00: BOTH EYES, H ermann 00 Bedtime, Drug form: SUSP, Start date: 10/06/13 21:00:00, Duration: 30 day, Stop date: 11/04/13 21:00:00(S sharron as: Lotemax) montelukast No [place] 10 mg, 1 [facility]07 Avis Stef tab, l 03:00: Route: PO, Lead 00 Drug form: TAB, Bedtime, Dosing Weight 78.182, kg, Start date: 10/06/13 21:00:00, Duration: 30 day, Stop date: 11/04/13 21:00:00(S sharron as:Singula ir) Alrex 0.2% No [place] 1 drp, M [facility]07 Avis Stef Route: l suspension 03:00: BOTH EYES, H ermann 00 Bedtime, Drug form: SUSP, Start date: 10/06/13 21:00:00, Duration: 30 day, Stop date: 11/04/13 21:00:00(S sharron as: Lotemax) montelukast No [place] 10 mg, 1 [facility] 10[facility]07 Avis Stef tab, l 03:00: Route: PO, Lead 00 Drug form: TAB, Bedtime, Dosing Weight 78.182, kg, Start date: 10/06/13 21:00:00, Duration: 30 day, Stop date: 11/04/13 21:00:00(S sharron as:Singula ir) Alrex 0.2% No [place] 1 drp, M [facility]07 Avis Stef Route: l suspension 03:00: BOTH EYES, H ermann 00 Bedtime, Drug form: SUSP, Start date: 10/06/13 21:00:00, Duration: 30 day, Stop date: 11/04/13 21:00:00(S sharron as: Lotemax) montelukast No [place] 10 mg, 1 [facility]07 Avis Stef tab, l 03:00: Route: PO, Vinnie 00 Drug form: TAB, Bedtime, Dosing Weight 78.182, kg, Start date: 10/06/13 21:00:00, Duration: 30 day, Stop date: 11/04/13 21:00:00(S sharron as:Singula ir) Alrex 0.2% No [place] 1 drp, M [facility] Avis Stef Route: l suspension 03:00: BOTH EYES, H ermann 00 Bedtime, Drug form: SUSP, Start date: 10/06/13 21:00:00, Duration: 30 day, Stop date: 11/04/13 21:00:00(S sharron as: Lotemax) montelukast No [place] 10 mg, 1 [facility] 10[facility]07 Avis Stef tab, l 03:00: Route: PO, Lead 00 Drug form: TAB, Bedtime, Dosing Weight 78.182, kg, Start date: 10/06/13 21:00:00, Duration: 30 day, Stop date: 11/04/13 21:00:00(S sharron as:Singula ir) Alrex 0.2% 0 No [place] 1 drp, M [facility]07 Avis Stef Route: l suspension 03:00: BOTH EYES, H ermann 00 Bedtime, Drug form: SUSP, Start date: 10/06/13 21:00:00, Duration: 30 day, Stop date: 11/04/13 21:00:00(S sharron as: Lotemax) montelukast No [place] 10 mg, 1 [facility] 10[facility]07 Avis Stef tab, l 03:00: Route: PO, Lead 00 Drug form: TAB, Bedtime, Dosing Weight 78.182, kg, Start date: 10/06/13 21:00:00, Duration: 30 day, Stop date: 11/04/13 21:00:00(S sharron as:Singula ir) Alrex 0.2% No [place] 1 drp, M [facility]07 Avis Stef Route: l suspension 03:00: BOTH EYES, H ermann 00 Bedtime, Drug form: SUSP, Start date: 10/06/13 21:00:00, Duration: 30 day, Stop date: 11/04/13 21:00:00(S sharron as: Lotemax) montelukast No [place] 10 mg, 1 [facility] 10[facility]07 Avis Stef tab, l 03:00: Route: PO, Vinnie 00 Drug form: TAB, Bedtime, Dosing Weight 78.182, kg, Start date: 10/06/13 21:00:00, Duration: 30 day, Stop date: 11/04/13 21:00:00(S sharron as:Singula ir) Alrex 0.2% No [place] 1 drp, M [facility]07 Avis Stef Route: l suspension 03:00: BOTH EYES, H ermann 00 Bedtime, Drug form: SUSP, Start date: 10/06/13 21:00:00, Duration: 30 day, Stop date: 11/04/13 21:00:00(S sharron as: Lotemax) montelukast No [place] 10 mg, 1 [facility] 10[facility]07 Avis Stef tab, l 03:00: Route: PO, Lead 00 Drug form: TAB, Bedtime, Dosing Weight 78.182, kg, Start date: 10/06/13 21:00:00, Duration: 30 day, Stop date: 11/04/13 21:00:00(S sharron as:Singula ir) Alrex 0.2% 2013- No [place] 1 drp, M [facility] Avis Stef Route: l suspension 03:00: BOTH EYES, H ermann 00 Bedtime, Drug form: SUSP, Start date: 10/06/13 21:00:00, Duration: 30 day, Stop date: 11/04/13 21:00:00(S sharron as: Lotemax) montelukast No [place] 10 mg, 1 [facility] 10[facility]07 Avis Stef tab, l 03:00: Route: PO, Lead 00 Drug form: TAB, Bedtime, Dosing Weight 78.182, kg, Start date: 10/06/13 21:00:00, Duration: 30 day, Stop date: 11/04/13 21:00:00(S sharron as:Singula ir) Zantac 75 No [place] 75 mg, Me [facility] 10-06 Avis Stef Route: PO, l 23:00: QPM, Dosing Weight 78.182, kg, Start date: 10/06/13 17:00:00, Duration: 30 day, Stop date: 11/04/13 17:00:00 Pepcid AC 2013-0 No [place] 10 mg, 1 [facility]06 Avis Stef tab, l 23:00: Route: PO, Lead 00 Drug form: TAB, QPM, Start date: 10/06/13 17:00:00, Duration: 30 day, Stop date: 11/04/13 17:00:00(S sharron as: Pepcid AC) Zantac 75 0 No [place] 75 mg, Me [facility] 10-06 Avis Stef Route: PO, l 23:00: QPM, Lead 00 Dosing Weight 78.182, kg, Start date: 10/06/13 17:00:00, Duration: 30 day, Stop date: 11/04/13 17:00:00 Pepcid AC 2013-0 No [place] 10 mg, 1 [facility] 1-22 Avis Stef tab, l 23:00: Route: PO, Vinnie 00 Drug form: TAB, QPM, Start date: 10/06/13 17:00:00, Duration: 30 day, Stop date: 11/04/13 17:00:00(S sharron as: Pepcid AC) Zantac 75 2013-0 No [place] 75 mg, Me [facility] 1-22 Avis Stef Route: PO, l 23:00: QPM, Vinnie 00 Dosing Weight 78.182, kg, Start date: 10/06/13 17:00:00, Duration: 30 day, Stop date: 11/04/13 17:00:00 Pepcid AC 2013-0 No [place] 10 mg, 1 [facility] 1-22 Avis Stef tab, l 23:00: Route: PO, Vinnie 00 Drug form: TAB, QPM, Start date: 10/06/13 17:00:00, Duration: 30 day, Stop date: 11/04/13 17:00:00(S sharron as: Pepcid AC) Zantac 75 2013-0 No [place] 75 mg, Me [facility] -22 Avis Stef Route: PO, l 23:00: QPM, Vinnie 00 Dosing Weight 78.182, kg, Start date: 10/06/13 17:00:00, Duration: 30 day, Stop date: 11/04/13 17:00:00 Pepcid AC 2013-0 No [place] 10 mg, 1 [facility] -22 Avis Stef tab, l 23:00: Route: PO, Vinnie 00 Drug form: TAB, QPM, Start date: 10/06/13 17:00:00, Duration: 30 day, Stop date: 11/04/13 17:00:00(S sharron as: Pepcid AC) Zantac 75 2013-0 No [place] 75 mg, Me [facility] 1-22 Avis Stef Route: PO, l 23:00: QPM, Lead 00 Dosing Weight 78.182, kg, Start date: 10/06/13 17:00:00, Duration: 30 day, Stop date: 11/04/13 17:00:00 Pepcid AC 2013-0 No [place] 10 mg, 1 [facility] 1-22 Avis Stef tab, l 23:00: Route: PO, Lead 00 Drug form: TAB, QPM, Start date: 10/06/13 17:00:00, Duration: 30 day, Stop date: 11/04/13 17:00:00(S sharron as: Pepcid AC) Zantac 75 2013-0 No [place] 75 mg, Me [facility] 1-22 Avis Stef Route: PO, l 23:00: QPM, Lead 00 Dosing Weight 78.182, kg, Start date: 10/06/13 17:00:00, Duration: 30 day, Stop date: 11/04/13 17:00:00 Pepcid AC 2013-0 No [place] 10 mg, 1 [facility] -22 Avis Stef tab, l 23:00: Route: PO, Vinnie 00 Drug form: TAB, QPM, Start date: 10/06/13 17:00:00, Duration: 30 day, Stop date: 11/04/13 17:00:00(S sharron as: Pepcid AC) Zantac 75 2013-0 No [place] 75 mg, Me moria - Avis Stef Route: PO, l 23:00: QPM, Lead 00 Dosing Weight 78.182, kg, Start date: 10/06/13 17:00:00, Duration: 30 day, Stop date: 11/04/13 17:00:00 Pepcid AC 2013-0 No [place] 10 mg, 1 [facility] -22 Avis Stef tab, l 23:00: Route: PO, Vinnie 00 Drug form: TAB, QPM, Start date: 10/06/13 17:00:00, Duration: 30 day, Stop date: 11/04/13 17:00:00(S sharron as: Pepcid AC) Zantac 75 2013-0 No [place] 75 mg, Me [facility]ia 1-22 Avis Stef Route: PO, l 23:00: QPM, Lead 00 Dosing Weight 78.182, kg, Start date: 10/06/13 17:00:00, Duration: 30 day, Stop date: 11/04/13 17:00:00 Pepcid AC 2013-0 No [place] 10 mg, 1 [facility] -22 Avis Stef tab, l 23:00: Route: PO, Vinnie 00 Drug form: TAB, QPM, Start date: 10/06/13 17:00:00, Duration: 30 day, Stop date: 11/04/13 17:00:00(S sharron as: Pepcid AC) Zantac 75 2013-0 No [place] 75 mg, Me [facility] 1-22 Avis Stef Route: PO, l 23:00: QPM, Vinnie Dosing Weight 78.182, kg, Start date: 10/06/13 17:00:00, Duration: 30 day, Stop date: 11/04/13 17:00:00 Pepcid AC 2013-0 No [place] 10 mg, 1 [facility] 1-22 Avis Stef tab, l 23:00: Route: PO, Lead 00 Drug form: TAB, QPM, Start date: 10/06/13 17:00:00, Duration: 30 day, Stop date: 11/04/13 17:00:00(S sharron as: Pepcid AC) Zantac 75 2013-0 No [place] 75 mg, Me moria 1-22 Avis Stef Route: PO, l 23:00: QPM, Lead Dosing Weight 78.182, kg, Start date: 10/06/13 17:00:00, Duration: 30 day, Stop date: 11/04/13 17:00:00 Pepcid AC 2013-0 No [place] 10 mg, 1 [facility] -22 Avis Stef tab, l 23:00: Route: PO, Vinnie 00 Drug form: TAB, QPM, Start date: 10/06/13 17:00:00, Duration: 30 day, Stop date: 11/04/13 17:00:00(S sharron as: Pepcid AC) Zantac 75 2013-0 No [place] 75 mg, Me [facility] 1-22 Avis Stef Route: PO, l 23:00: QPM, Lead 00 Dosing Weight 78.182, kg, Start date: 10/06/13 17:00:00, Duration: 30 day, Stop date: 11/04/13 17:00:00 Pepcid AC 2013-0 No [place] 10 mg, 1 [facility] 1-22 Avis Stef tab, l 23:00: Route: PO, Lead 00 Drug form: TAB, QPM, Start date: 10/06/13 17:00:00, Duration: 30 day, Stop date: 11/04/13 17:00:00(S sharron as: Pepcid AC) Zantac 75 2013-0 No [place] 75 mg, Me moria 1-22 Avis Stef Route: PO, l 23:00: QPM, Lead 00 Dosing Weight 78.182, kg, Start date: 10/06/13 17:00:00, Duration: 30 day, Stop date: 11/04/13 17:00:00 Pepcid AC 2013-0 No [place] 10 mg, 1 [facility] 1-22 Avis Stef tab, l 23:00: Route: PO, Lead 00 Drug form: TAB, QPM, Start date: 10/06/13 17:00:00, Duration: 30 day, Stop date: 11/04/13 17:00:00(S sharron as: Pepcid AC) Zantac 75 2013-0 No [place] 75 mg, Me moria 1-22 Avis Stef Route: PO, l 23:00: QPM, Lead Dosing Weight 78.182, kg, Start date: 10/06/13 17:00:00, Duration: 30 day, Stop date: 11/04/13 17:00:00 Pepcid AC 2013-0 No [place] 10 mg, 1 [facility] 1-22 Avis Stef tab, l 23:00: Route: PO, Vinnie 00 Drug form: TAB, QPM, Start date: 10/06/13 17:00:00, Duration: 30 day, Stop date: 11/04/13 17:00:00(S sharron as: Pepcid AC) Zantac 75 2013-0 No [place] 75 mg, Me moria 1-22 Avis Stef Route: PO, l 23:00: QPM, Vinnie 00 Dosing Weight 78.182, kg, Start date: 10/06/13 17:00:00, Duration: 30 day, Stop date: 11/04/13 17:00:00 Pepcid AC 2013-0 No [place] 10 mg, 1 [facility] 1-22 Avis Stef tab, l 23:00: Route: PO, Lead 00 Drug form: TAB, QPM, Start date: 10/06/13 17:00:00, Duration: 30 day, Stop date: 11/04/13 17:00:00(S sharron as: Pepcid AC) Zantac 75 2013-0 No [place] 75 mg, Me moria 1-22 Avis Stef Route: PO, l 23:00: QPM, Lead 00 Dosing Weight 78.182, kg, Start date: 10/06/13 17:00:00, Duration: 30 day, Stop date: 11/04/13 17:00:00 Pepcid AC 2013-0 No [place] 10 mg, 1 [facility] 1-22 Avis Stef tab, l 23:00: Route: PO, Lead 00 Drug form: TAB, QPM, Start date: 10/06/13 17:00:00, Duration: 30 day, Stop date: 11/04/13 17:00:00(S sharron as: Pepcid AC) Zantac 75 2013-0 No [place] 75 mg, Me moria 1-22 Avis Stef Route: PO, l 23:00: QPM, Vinnie 00 Dosing Weight 78.182, kg, Start date: 10/06/13 17:00:00, Duration: 30 day, Stop date: 11/04/13 17:00:00 Pepcid AC 2013-0 No [place] 10 mg, 1 [facility] 1-22 Avis Stef tab, l 23:00: Route: PO, Lead 00 Drug form: TAB, QPM, Start date: 10/06/13 17:00:00, Duration: 30 day, Stop date: 11/04/13 17:00:00(S sharron as: Pepcid AC) Zantac 75 2013-0 No [place] 75 mg, Me moria 1-22 Avis Stef Route: PO, l 23:00: QPM, Vinnie 00 Dosing Weight 78.182, kg, Start date: 10/06/13 17:00:00, Duration: 30 day, Stop date: 11/04/13 17:00:00 Pepcid AC 2013-0 No [place] 10 mg, 1 [facility] 1-22 Avis Stef tab, l 23:00: Route: PO, Vinnie 00 Drug form: TAB, QPM, Start date: 10/06/13 17:00:00, Duration: 30 day, Stop date: 11/04/13 17:00:00(S sharron as: Pepcid AC) Zantac 75 2013-0 No [place] 75 mg, Me moria 1-22 Avis Stef Route: PO, l 23:00: QPM, Lead 00 Dosing Weight 78.182, kg, Start date: 10/06/13 17:00:00, Duration: 30 day, Stop date: 11/04/13 17:00:00 Pepcid AC 2013-0 No [place] 10 mg, 1 [facility] 1-22 Avis Stef tab, l 23:00: Route: PO, Lead 00 Drug form: TAB, QPM, Start date: 10/06/13 17:00:00, Duration: 30 day, Stop date: 11/04/13 17:00:00(S sharron as: Pepcid AC) Zantac 75 2013-0 No [place] 75 mg, Me moria 1-22 Avis Stef Route: PO, l 23:00: QPM, Lead 00 Dosing Weight 78.182, kg, Start date: 10/06/13 17:00:00, Duration: 30 day, Stop date: 11/04/13 17:00:00 Pepcid AC 2013-0 No [place] 10 mg, 1 [facility] -22 Avis Stef tab, l 23:00: Route: PO, Lead 00 Drug form: TAB, QPM, Start date: 10/06/13 17:00:00, Duration: 30 day, Stop date: 11/04/13 17:00:00(S sharron as: Pepcid AC) Zantac 75 2013-0 No [place] 75 mg, Me moria 1-22 Avis Stef Route: PO, l 23:00: QPM, Vinnie 00 Dosing Weight 78.182, kg, Start date: 10/06/13 17:00:00, Duration: 30 day, Stop date: 11/04/13 17:00:00 Pepcid AC 2013-0 No [place] 10 mg, 1 [facility] 1-22 Avis Stef tab, l 23:00: Route: PO, Lead 00 Drug form: TAB, QPM, Start date: 10/06/13 17:00:00, Duration: 30 day, Stop date: 11/04/13 17:00:00(S sharron as: Pepcid AC) Zantac 75 2013-0 No [place] 75 mg, Me moria 1-22 Avis Stef Route: PO, l 23:00: QPM, Vinnie 00 Dosing Weight 78.182, kg, Start date: 10/06/13 17:00:00, Duration: 30 day, Stop date: 11/04/13 17:00:00 Pepcid AC 2013-0 No [place] 10 mg, 1 [facility] 1-22 Avis Stef tab, l 23:00: Route: PO, Lead 00 Drug form: TAB, QPM, Start date: 10/06/13 17:00:00, Duration: 30 day, Stop date: 11/04/13 17:00:00(S sharron as: Pepcid AC) Zantac 75 2013-0 No [place] 75 mg, Me moria 1-22 Avis Stef Route: PO, l 23:00: QPM, Vinnie Dosing Weight 78.182, kg, Start date: 10/06/13 17:00:00, Duration: 30 day, Stop date: 11/04/13 17:00:00 Pepcid AC 2013-0 No [place] 10 mg, 1 [facility] 1-22 Avis Stef tab, l 23:00: Route: PO, Vinnie 00 Drug form: TAB, QPM, Start date: 10/06/13 17:00:00, Duration: 30 day, Stop date: 11/04/13 17:00:00(S sharron as: Pepcid AC) Zantac 75 2013-0 No [place] 75 mg, Me moria 1-22 Avis Stef Route: PO, l 23:00: QPM, Vinnie 00 Dosing Weight 78.182, kg, Start date: 10/06/13 17:00:00, Duration: 30 day, Stop date: 11/04/13 17:00:00 Pepcid AC 2013-0 No [place] 10 mg, 1 [facility] 1-22 Avis Stef tab, l 23:00: Route: PO, Lead 00 Drug form: TAB, QPM, Start date: 10/06/13 17:00:00, Duration: 30 day, Stop date: 11/04/13 17:00:00(S sharron as: Pepcid AC) Zantac 75 2013-0 No [place] 75 mg, Me moria 1-22 Avis Stef Route: PO, l 23:00: QPM, Lead 00 Dosing Weight 78.182, kg, Start date: 10/06/13 17:00:00, Duration: 30 day, Stop date: 11/04/13 17:00:00 Pepcid AC 2013-0 No [place] 10 mg, 1 [facility] 1-22 Avis Stef tab, l 23:00: Route: PO, Vinnie 00 Drug form: TAB, QPM, Start date: 10/06/13 17:00:00, Duration: 30 day, Stop date: 11/04/13 17:00:00(S sharron as: Pepcid AC) Zantac 75 2013-0 No [place] 75 mg, Me moria 1-22 Avis Stef Route: PO, l 23:00: QPM, Lead Dosing Weight 78.182, kg, Start date: 10/06/13 17:00:00, Duration: 30 day, Stop date: 11/04/13 17:00:00 Pepcid AC 2013-0 No [place] 10 mg, 1 [facility] 1-22 Avis Stef tab, l 23:00: Route: PO, Lead 00 Drug form: TAB, QPM, Start date: 10/06/13 17:00:00, Duration: 30 day, Stop date: 11/04/13 17:00:00(S sharron as: Pepcid AC) Zantac 75 2013-0 No [place] 75 mg, Me moria 1-22 Avis Stef Route: PO, l 23:00: QPM, Vinnie 00 Dosing Weight 78.182, kg, Start date: 10/06/13 17:00:00, Duration: 30 day, Stop date: 11/04/13 17:00:00 Pepcid AC 2013-0 No [place] 10 mg, 1 [facility] 1-22 Avis Stef tab, l 23:00: Route: PO, Lead 00 Drug form: TAB, QPM, Start date: 10/06/13 17:00:00, Duration: 30 day, Stop date: 11/04/13 17:00:00(S sharron as: Pepcid AC) Zantac 75 2013-0 No [place] 75 mg, Me moria - Avis Stef Route: PO, l 23:00: QPM, Dosing Weight 78.182, kg, Start date: 10/06/13 17:00:00, Duration: 30 day, Stop date: 11/04/13 17:00:00 Pepcid AC 2013-0 No [place] 10 mg, 1 [facility] 10-06 Avis Stef tab, l 23:00: Route: PO, Vinnie 00 Drug form: TAB, QPM, Start date: 10/06/13 17:00:00, Duration: 30 day, Stop date: 11/04/13 17:00:00(S sharron as: Pepcid AC) betamethaso Yes 1 appl, [facility] ne-clotrima - TOP, l zole 21:25: Daily, PRN Vinnie topical 00 as needed 0.05%-1% for cream itching in ears, 0 Refill(s) betamethaso Yes 1 appl, [facility] ne-clotrima - TOP, l zole 21:25: Daily, PRN Lead topical 00 as needed 0.05%-1% for cream itching in ears, 0 Refill(s) betamethaso Yes 1 appl, [facility] ne-clotrima - TOP, l zole 21:25: Daily, PRN Vinnie topical 00 as needed 0.05%-1% for cream itching in ears, 0 Refill(s) betamethaso 2013- Yes 1 appl, [facility] ne-clotrima -22 TOP, l zole 21:25: Daily, PRN Vinnie topical 00 as needed 0.05%-1% for cream itching in ears, 0 Refill(s) betamethaso Yes 1 appl, [facility] ne-clotrima -22 TOP, l zole 21:25: Daily, PRN Vinnie topical 00 as needed 0.05%-1% for cream itching in ears, 0 Refill(s) betamethaso Yes 1 appl, [facility] ne-clotrima - TOP, l zole 21:25: Daily, PRN Vinnie topical 00 as needed 0.05%-1% for cream itching in ears, 0 Refill(s) betamethaso Yes 1 appl, [facility] ne-clotrima -22 TOP, l zole 21:25: Daily, PRN Lead topical 00 as needed 0.05%-1% for cream itching in ears, 0 Refill(s) betamethaso Yes 1 appl, [facility] ne-clotrima - TOP, l zole 21:25: Daily, PRN Lead topical 00 as needed 0.05%-1% for cream itching in ears, 0 Refill(s) betamethaso Yes 1 appl, [facility] ne-clotrima - TOP, l zole 21:25: Daily, PRN Vinnie topical 00 as needed 0.05%-1% for cream itching in ears, 0 Refill(s) betamethaso Yes 1 appl, [facility] ne-clotrima - TOP, l zole 21:25: Daily, PRN Vinnie topical 00 as needed 0.05%-1% for cream itching in ears, 0 Refill(s) betamethaso Yes 1 appl, [facility] ne-clotrima - TOP, l zole 21:25: Daily, PRN Vinnie topical 00 as needed 0.05%-1% for cream itching in ears, 0 Refill(s) betamethaso Yes 1 appl, [facility] ne-clotrima - TOP, l zole 21:25: Daily, PRN Vinnie topical 00 as needed 0.05%-1% for cream itching in ears, 0 Refill(s) betamethaso Yes 1 appl, [facility] ne-clotrima -22 TOP, l zole 21:25: Daily, PRN Vinnie topical 00 as needed 0.05%-1% for cream itching in ears, 0 Refill(s) betamethaso Yes 1 appl, [facility] ne-clotrima 1-22 TOP, l zole 21:25: Daily, PRN Lead topical 00 as needed 0.05%-1% for cream itching in ears, 0 Refill(s) betamethaso Yes 1 appl, [facility] ne-clotrima 1-22 TOP, l zole 21:25: Daily, PRN Vinnie topical 00 as needed 0.05%-1% for cream itching in ears, 0 Refill(s) betamethaso Yes 1 appl, [facility] ne-clotrima 1-22 TOP, l zole 21:25: Daily, PRN Lead topical 00 as needed 0.05%-1% for cream itching in ears, 0 Refill(s) betamethaso Yes 1 appl, [facility] ne-clotrima - TOP, l zole 21:25: Daily, PRN Lead topical 00 as needed 0.05%-1% for cream itching in ears, 0 Refill(s) betamethaso Yes 1 appl, [facility] ne-clotrima -22 TOP, l zole 21:25: Daily, PRN Lead topical 00 as needed 0.05%-1% for cream itching in ears, 0 Refill(s) betamethaso Yes 1 appl, [facility] ne-clotrima - TOP, l zole 21:25: Daily, PRN Lead topical 00 as needed 0.05%-1% for cream itching in ears, 0 Refill(s) betamethaso Yes 1 appl, [facility] ne-clotrima 1-22 TOP, l zole 21:25: Daily, PRN Vinnie topical 00 as needed 0.05%-1% for cream itching in ears, 0 Refill(s) betamethaso Yes 1 appl, [facility] ne-clotrima 1-22 TOP, l zole 21:25: Daily, PRN Lead topical 00 as needed 0.05%-1% for cream itching in ears, 0 Refill(s) betamethaso Yes 1 appl, [facility] ne-clotrima - TOP, l zole 21:25: Daily, PRN Vinnie topical 00 as needed 0.05%-1% for cream itching in ears, 0 Refill(s) betamethaso Yes 1 appl, [facility] ne-clotrima -22 TOP, l zole 21:25: Daily, PRN Lead topical 00 as needed 0.05%-1% for cream itching in ears, 0 Refill(s) betamethaso Yes 1 appl, [facility] ne-clotrima -22 TOP, l zole 21:25: Daily, PRN Vinnie topical 00 as needed 0.05%-1% for cream itching in ears, 0 Refill(s) betamethaso Yes 1 appl, [facility] ne-clotrima - TOP, l zole 21:25: Daily, PRN Vinnie topical 00 as needed 0.05%-1% for cream itching in ears, 0 Refill(s) betamethaso Yes 1 appl, Mem oria ne-clotrima - TOP, l zole 21:25: Daily, PRN Vinnie topical 00 as needed 0.05%-1% for cream itching in ears, 0 Refill(s) betamethaso Yes 1 appl, Mem oria ne-clotrima - TOP, l zole 21:25: Daily, PRN Vinnie topical 00 as needed 0.05%-1% for cream itching in ears, 0 Refill(s) isosorbide No Galilea 20 mg, 1 Memoria dinitrate 10-06 Avis Stef tab, l 15:00: Route: PO, Vinnie 00 Drug form: TAB, TID, Dosing Weight 78.182, [...] day, Stop date: 11/04/13 9:00:00(Sa me as: Lasix) May cause GI upset. Give with food or milk. hydrALAZINE No Galilea 25 mg, 1 Memoria 25 mg oral 10-06 Avis Stef tab, l tablet 15:00: Route: PO, Salma nn 00 Drug form: TAB, BID, Dosing Weight 78.182, kg, hold for SBP < 110, Start date: 10/06/13 9:00:00, Duration: 30 day, Stop date: 11/04/13 17:00:00(S sharron as: Apresoline ) May interfere w/enteral feedings Take With Food. calcium-vit No Galilea 500 mg, Memoria corona D 500 10-06 Avis Stef Route: l mg-400 intl 15:00: CHEW, Drug Vinnie units oral 00 Form: tablet, CHEWTAB, chewable Dosing Weight 78.182, kg, Daily, Start date: 10/06/13 9:00:00, Duration: 30 day, Stop date: 11/04/13 9:00:00(ca lcium carbonate- vit D 500mg-400u nit chew TAB) Same as: Oscal 500+D cyanocobala No Galilea 1,000 M emoria min 10-06 Avis Stef microgram, l 15:00: 1 tab, Lead 00 Route: PO, Drug form: TAB, Daily, Dosing Weight 78.182, kg, Start date: 10/06/13 9:00:00, Duration: 30 day, Stop date: 11/04/13 9:00:00(Sa me As: Vitamin B-12) Coreg No Julia 6.25 [...] day, Stop date: 11/04/13 9:00:00(Sa me as: Norvasc) docusate No Galilea 100 mg, 1 Memoria 10-06 Avis Stef cap, l 15:00: Route: PO, Lead 00 Drug form: CAP, BID, Dosing Weight [...] 17:00:00(S sharron as: Colace) (Do Not Crush) Pulmicort No Galilea 1 Semaj shashi Flexhaler 10-06 Avis Stef inhalation l 15:00: , Route: Lead 00 INHALATION , Drug Form: PWDR, Dosing Weight 78.182, kg, BID, Start date: 10/06/13 9:00:00, Duration: 30 day, Stop date: 11/04/13 17:00:00 Fish Oil No Galilea 1,000 mg, Memoria 10-06 Avis Stef 1 cap, l 15:00: Route: PO, Drug form: CAP, Daily, Dosing Weight 78.182, kg, Start date: 10/06/13 9:00:00, Duration: 30 day, Stop date: 11/04/13 9:00:00(Sa me as: MaxEPA, [place] 3 fish oil ) Non-Formul kinza Drug magnesium No Galilea 200 mg, M emoria oxide 10-06 Avis Stef 0.5 tab, l 15:00: Route: PO, Drug form: TAB, BID, Dosing Weight 78.182, kg, Start date: 10/06/13 9:00:00, Duration: 30 day, Stop date: 11/04/13 17:00:00(S sharron as: Mag-Ox 400) Magnesium oxide [id number] g elemental magnesium Dose=____m g magnesium oxide (___mg elemental magnesium) multivitami No Galilea 1 tab, Memoria n 10-06 Avis Stef Route: PO, l 15:00: Drug Form: TAB, Dosing Weight 78.182, kg, Daily, Start date: 10/06/13 9:00:00, Duration: 30 day, Stop date: 11/04/13 9:00:00(Sa me as:Thera) Take with food. liothyronin No Howard 5 Memor ia e 10-06 Fer microgram, l 15:00: Sebastian 1 tab, Route: PO, Drug form: TAB, Daily, Dosing Weight 78.182, kg, Start date: 10/06/13 9:00:00, Duration: 30 day, Stop date: 11/04/13 9:00:00(Sa me as: Cytomel) isosorbide No Galilea 20 mg, 1 Memoria dinitrate 10-06 Avis Stef tab, l 15:00: Route: PO, Drug form: TAB, TID, Dosing Weight 78.182, kg, Start date: 10/06/13 9:00:00, Duration: 30 day, Stop date: 11/04/13 17:00:00(S sharron as:Isordil ) Take on empty stomach/ full glass of water Lasix 20 mg No Galilea 20 mg, 1 Memoria oral tablet 10-06 Avis Stef tab, l 15:00: Route: PO, Lead 00 Drug form: TAB, Daily, Dosing Weight 78.182, kg, Start date: 10/06/13 9:00:00, Duration: 30 day, Stop date: 11/04/13 9:00:00(Sa me as: Lasix) May cause GI upset. Give with food or milk. hydrALAZINE No Galilea 25 mg, 1 Memoria 25 mg oral 10-06 Avis Stef tab, l tablet 15:00: Route: PO, Salma nn 00 Drug form: TAB, BID, Dosing Weight 78.182, kg, hold for SBP < 110, Start date: 10/06/13 9:00:00, Duration: 30 day, Stop date: 11/04/13 17:00:00(S sharron as: Apresoline ) May interfere w/enteral feedings Take With Food. calcium-vit No Galilea 500 mg, Memoria corona D 500 10-06 Avis Stef Route: l mg-400 intl 15:00: CHEW, Drug Vinnie units oral 00 Form: tablet, CHEWTAB, chewable Dosing Weight 78.182, kg, Daily, Start date: 10/06/13 9:00:00, Duration: 30 day, Stop date: 11/04/13 9:00:00(ca lcium carbonate- vit D 500mg-400u nit chew TAB) Same as: Oscal 500+D cyanocobala No Galilea 1,000 M emoria min 10-06 Avis Stef microgram, l 15:00: 1 tab, Lead 00 Route: PO, Drug form: TAB, Daily, Dosing Weight 78.182, kg, Start date: 10/06/13 9:00:00, Duration: 30 day, Stop date: 11/04/13 9:00:00(Sa me As: Vitamin B-12) Coreg No Julia 6.25 [...] day, Stop date: 11/04/13 9:00:00(Sa me as: Norvasc) docusate No Galilea 100 mg, [...] 17:00:00(S sharron as: Colace) (Do Not Crush) Pulmicort No Galilea 1 Semaj shashi Flexhaler 10-06 Avis Stef inhalation l 15:00: , Route: Lead 00 INHALATION , Drug Form: PWDR, Dosing Weight 78.182, kg, BID, Start date: 10/06/13 9:00:00, Duration: 30 day, Stop date: 11/04/13 17:00:00 Fish Oil No Galilea 1,000 mg, Memoria 10-06 Avis Stef 1 cap, l 15:00: Route: PO, Lead 00 Drug form: CAP, Daily, Dosing Weight 78.182, kg, Start date: 10/06/13 9:00:00, Duration: 30 day, Stop date: 11/04/13 9:00:00(Sa me as: MaxEPA, [place] 3 fish oil ) Non-Formul kinza Drug magnesium No Galilea 200 mg, M emoria oxide 10-06 Avis Stef 0.5 tab, l 15:00: Route: PO, Lead 00 Drug form: TAB, BID, Dosing Weight 78.182, kg, Start date: 10/06/13 9:00:00, Duration: 30 day, Stop date: 11/04/13 17:00:00(S sharron as: Mag-Ox 400) Magnesium oxide 474bk=216h g elemental magnesium Dose=____m g magnesium oxide (___mg elemental magnesium) multivitami No Galilea 1 tab, Memoria n 10-06 Avis Stef Route: PO, l 15:00: Drug Form: Vinnie 00 TAB, Dosing Weight 78.182, kg, Daily, Start date: 10/06/13 9:00:00, Duration: 30 day, Stop date: 11/04/13 9:00:00(Sa me as:Thera) Take with food. liothyronin No Howard 5 Memor ia e 10-06 Fer microgram, l 15:00: Sebastian 1 tab, Vinnie 00 Route: PO, Drug form: TAB, Daily, Dosing Weight 78.182, kg, Start date: 10/06/13 9:00:00, Duration: 30 day, Stop date: 11/04/13 9:00:00(Sa me as: Cytomel) isosorbide No Galilea 20 mg, 1 Memoria dinitrate 10-06 Avis Stef tab, l 15:00: Route: PO, Vinnie 00 Drug form: TAB, TID, Dosing Weight 78.182, [...] day, Stop date: 11/04/13 9:00:00(Sa me as: Lasix) May cause GI upset. Give with food or milk. hydrALAZINE No Galilea 25 mg, 1 Memoria 25 mg oral 10-06 Avis Stef tab, l tablet 15:00: Route: PO, Salma nn Drug form: TAB, BID, Dosing Weight 78.182, kg, hold for SBP < 110, Start date: 10/06/13 9:00:00, Duration: 30 day, Stop date: 11/04/13 17:00:00(S sharron as: Apresoline ) May interfere w/enteral feedings Take With Food. calcium-vit No Galilea 500 mg, Memoria corona D 500 10-06 Avis Finch Route: l mg-400 intl 15:00: CHEW, Drug Vinnie units oral 00 Form: tablet, CHEWTAB, chewable Dosing Weight 78.182, kg, Daily, Start date: 10/06/13 9:00:00, Duration: 30 day, Stop date: 11/04/13 9:00:00(ca lcium carbonate- vit D 500mg-400u nit chew TAB) Same as: Oscal 500+D cyanocobala No Galilea 1,000 M emoria min 10-06 Avis Stef microgram, l 15:00: 1 tab, Vinnie 00 Route: PO, Drug form: TAB, Daily, Dosing Weight 78.182, kg, Start date: 10/06/13 9:00:00, Duration: 30 day, Stop date: 11/04/13 9:00:00(Sa me As: Vitamin B-12) Coreg No Julia 6.25 [...] Avis Stef tab, l 15:00: Route: PO, Lead 00 Drug form: TAB, Daily, Dosing Weight 78.182, kg, hold for SBP < 110, Start date: 10/06/13 9:00:00, Duration: 30 day, Stop date: 11/04/13 9:00:00([facility] as: Norvasc) docusate No Galilea 100 mg, [...] 17:00:00(S sharron as: Colace) (Do Not Crush) Pulmicort No Galilea 1 Semaj shashi Flexhaler [...] Stop date: 11/04/13 9:00:00(Sa me as: MaxEPA, [place] 3 fish oil ) Non-Formul kinza Drug magnesium No Galilea 200 mg, M emoria oxide 10-06 Avis Stef 0.5 tab, l 15:00: Route: PO, Drug form: TAB, BID, Dosing Weight 78.182, kg, Start date: 10/06/13 9:00:00, Duration: 30 day, Stop date: 11/04/13 17:00:00(S sharron as: Mag-Ox 400) Magnesium oxide 510qt=149w g elemental magnesium Dose=____m g magnesium oxide (___mg elemental magnesium) multivitami No Galilea 1 tab, Memoria n 10-06 Avis Stef Route: PO, l 15:00: Drug Form: Vinnie 00 TAB, Dosing Weight 78.182, kg, Daily, Start date: 10/06/13 9:00:00, Duration: 30 day, Stop date: 11/04/13 9:00:00(Sa me as:Thera) Take with food. liothyronin No Howard 5 Memor ia e 10-06 Fer microgram, l 15:00: Sebastian 1 tab, Route: PO, Drug form: TAB, Daily, Dosing [...] 9:00:00, Duration: 30 day, Stop date: 11/04/13 9:00:00([facility] as: Lasix) May cause GI upset. Give with food or milk. hydrALAZINE No Galilea 25 mg, 1 Memoria 25 mg oral 10-06 Avis Stef tab, l tablet 15:00: Route: PO, Salma nn Drug form: TAB, BID, Dosing Weight 78.182, kg, hold for SBP < 110, Start date: 10/06/13 9:00:00, Duration: 30 day, Stop date: 11/04/13 17:00:00(S sharron as: Apresoline ) May interfere w/enteral feedings Take With Food. calcium-vit No Galilea 500 mg, Memoria corona D 500 10-06 Avis Finch Route: l mg-400 intl 15:00: CHEW, Drug Vinnie units oral 00 Form: tablet, CHEWTAB, chewable Dosing Weight 78.182, kg, Daily, Start date: 10/06/13 9:00:00, Duration: 30 day, Stop date: 11/04/13 9:00:00(ca lcium carbonate- vit D 500mg-400u nit chew TAB) Same as: Oscal 500+D cyanocobala No Galilea 1,000 M emoria min 10-06 Avis Stef microgram, l 15:00: 1 tab, Lead 00 Route: PO, Drug form: TAB, Daily, Dosing Weight 78.182, kg, Start date: 10/06/13 9:00:00, Duration: 30 day, Stop date: 11/04/13 9:00:00([facility] As: Vitamin B-12) Coreg No Julia 6.25 [...] Avis Stef tab, l 15:00: Route: PO, Lead 00 Drug form: TAB, Daily, Dosing Weight 78.182, kg, hold for SBP < 110, Start date: 10/06/13 9:00:00, Duration: 30 day, Stop date: 11/04/13 9:00:00([facility] as: Norvasc) docusate No Galilea 100 mg, [...] 17:00:00(S sharron as: Colace) (Do Not Crush) Pulmicort No Galilea 1 Semaj shashi Flexhaler 10-06 Avis Stef inhalation l 15:00: , Route: Vinnie 00 INHALATION , Drug Form: PWDR, Dosing Weight 78.182, kg, BID, Start date: 10/06/13 9:00:00, Duration: 30 day, Stop date: 11/04/13 17:00:00 Fish Oil No Galilea 1,000 mg, Memoria 10-06 Avis Stef 1 cap, l 15:00: Route: PO, Drug form: CAP, Daily, Dosing Weight 78.182, kg, Start date: 10/06/13 9:00:00, Duration: 30 day, Stop date: 11/04/13 9:00:00(Sa me as: MaxEPA, [place] 3 fish oil ) Non-Formul kinza Drug magnesium No Galilea 200 mg, M emoria oxide 10-06 Avis Stef 0.5 tab, l 15:00: Route: PO, Drug form: TAB, BID, Dosing Weight 78.182, kg, Start date: 10/06/13 9:00:00, Duration: 30 day, Stop date: 11/04/13 17:00:00(S sharron as: Mag-Ox 400) Magnesium oxide 992ei=304m g elemental magnesium Dose=____m g magnesium oxide (___mg elemental magnesium) multivitami No Galilea 1 tab, Memoria n 10-06 Avis Stef Route: PO, l 15:00: Drug Form: Vinnie 00 TAB, Dosing Weight 78.182, kg, Daily, Start date: 10/06/13 9:00:00, Duration: 30 day, Stop date: 11/04/13 9:00:00(Sa me as:Thera) Take with food. liothyronin No Howard 5 Memor ia e 10-06 Fer microgram, l 15:00: Sebastian 1 tab, Route: PO, Drug form: TAB, Daily, Dosing Weight 78.182, kg, Start date: 10/06/13 9:00:00, Duration: 30 day, Stop date: 11/04/13 9:00:00([facility] as: Cytomel) isosorbide No Galilea 20 mg, 1 Memoria dinitrate 10-06 Avis Stef tab, l 15:00: Route: PO, Lead 00 Drug form: TAB, TID, Dosing Weight 78.182, kg, Start date: 10/06/13 9:00:00, Duration: 30 day, Stop date: 11/04/13 17:00:00(S sharron as:Isordil ) Take on empty stomach/ full glass of water Lasix 20 mg No Galilea 20 mg, 1 Memoria oral tablet 10-06 Avis Stef tab, l 15:00: Route: PO, Lead 00 Drug form: TAB, Daily, Dosing Weight 78.182, kg, Start date: 10/06/13 9:00:00, Duration: 30 day, Stop date: 11/04/13 9:00:00([facility] as: Lasix) May cause GI upset. Give with food or milk. hydrALAZINE No Galilea 25 mg, 1 Memoria 25 mg oral 10-06 Avis Stef tab, l tablet 15:00: Route: PO, Salma nn 00 Drug form: TAB, BID, Dosing Weight 78.182, kg, hold for SBP < 110, Start date: 10/06/13 9:00:00, Duration: 30 day, Stop date: 11/04/13 17:00:00(S sharron as: Apresoline ) May interfere w/enteral feedings Take With Food. calcium-vit No Galilea 500 mg, Memoria corona D 500 10-06 Avis Stef Route: l mg-400 intl 15:00: CHEW, Drug Lead units oral 00 Form: tablet, CHEWTAB, chewable Dosing Weight 78.182, kg, Daily, Start date: 10/06/13 9:00:00, Duration: 30 day, Stop date: 11/04/13 9:00:00(ca lcium carbonate- vit D 500mg-400u nit chew TAB) Same as: Oscal 500+D cyanocobala No Galilea 1,000 M emoria min 10-06 Avis Stef microgram, l 15:00: 1 tab, Vinnie 00 Route: PO, Drug form: TAB, Daily, Dosing Weight 78.182, kg, Start date: 10/06/13 9:00:00, Duration: 30 day, Stop date: 11/04/13 9:00:00( me As: Vitamin B-12) Coreg No Julia 6.25 [...] Avis Stef tab, l 15:00: Route: PO, Lead 00 Drug form: TAB, Daily, Dosing Weight 78.182, kg, hold for SBP < 110, Start date: 10/06/13 9:00:00, Duration: 30 day, Stop date: 11/04/13 9:00:00([facility] as: Norvasc) docusate No Galilea 100 mg, [...] mg oral 15:00: Sebastian Route: PO, He rm Drug form: CAP, BID, Dosing Weight 78.182, kg, Start date: 10/06/13 9:00:00, Duration: 30 day, Stop date: 11/04/13 17:00:00(S sharron as: Colace) (Do Not Crush) Pulmicort No Galilea 1 Semaj shashi Flexhaler 10-06 Avis Stef inhalation l 15:00: , Route: Lead INHALATION , Drug Form: PWDR, Dosing Weight 78.182, kg, BID, Start date: 10/06/13 9:00:00, Duration: 30 day, Stop date: 11/04/13 17:00:00 Fish Oil No Galilea 1,000 mg, Memoria 10-06 Avis Stef 1 cap, l 15:00: Route: PO, Lead Drug form: CAP, Daily, Dosing Weight 78.182, kg, Start date: 10/06/13 9:00:00, Duration: 30 day, Stop date: 11/04/13 9:00:00(Sa me as: MaxEPA, [place] 3 fish oil ) Non-Formul kinza Drug magnesium No Galilea 200 mg, M emoria oxide 10-06 Avis Stef 0.5 tab, l 15:00: Route: PO, Lead Drug form: TAB, BID, Dosing Weight 78.182, kg, Start date: 10/06/13 9:00:00, Duration: 30 day, Stop date: 11/04/13 17:00:00(S sharron as: Mag-Ox 400) Magnesium oxide 531is=591s g elemental magnesium Dose=____m g magnesium oxide (___mg elemental magnesium) multivitami No Galilea 1 tab, Memoria n 10-06 Avis Stef Route: PO, l 15:00: Drug Form: Lead 00 TAB, Dosing Weight 78.182, kg, Daily, Start date: 10/06/13 9:00:00, Duration: 30 day, Stop date: 11/04/13 9:00:00(Sa me as:Thera) Take with food. liothyronin No Howard 5 Memor ia e 10-06 Fer microgram, l 15:00: Sebastian 1 tab, Vinnie 00 Route: PO, Drug form: TAB, Daily, Dosing Weight 78.182, kg, Start date: 10/06/13 9:00:00, Duration: 30 day, Stop date: 11/04/13 9:00:00(Sa ga as: Cytomel) isosorbide No Galilea 20 mg, 1 Memoria dinitrate 10-06 Avis Stef tab, l 15:00: Route: PO, Lead 00 Drug form: TAB, TID, Dosing Weight 78.182, kg, Start date: 10/06/13 9:00:00, Duration: 30 day, Stop date: 11/04/13 17:00:00(S sharron as:Isordil ) Take on empty stomach/ full glass of water Lasix 20 mg No Galilea 20 mg, 1 Memoria oral tablet 10-06 Avis Stef tab, l 15:00: Route: PO, Lead 00 Drug form: TAB, Daily, Dosing Weight 78.182, kg, Start date: 10/06/13 9:00:00, Duration: 30 day, Stop date: 11/04/13 9:00:00([facility] as: Lasix) May cause GI upset. Give with food or milk. hydrALAZINE No Galilea 25 mg, 1 Memoria 25 mg oral 10-06 Avis Stef tab, l tablet 15:00: Route: PO, Salma nn Drug form: TAB, BID, Dosing Weight 78.182, kg, hold for SBP < 110, Start date: 10/06/13 9:00:00, Duration: 30 day, Stop date: 11/04/13 17:00:00(S sharron as: Apresoline ) May interfere w/enteral feedings Take With Food. calcium-vit No Galilea 500 mg, Memoria corona D 500 10-06 Avis Stef Route: l mg-400 intl 15:00: CHEW, Drug Lead units oral 00 Form: tablet, CHEWTAB, chewable Dosing Weight 78.182, kg, Daily, Start date: 10/06/13 9:00:00, Duration: 30 day, Stop date: 11/04/13 9:00:00(ca lcium carbonate- vit D 500mg-400u nit chew TAB) Same as: Oscal 500+D cyanocobala No Galilea 1,000 M emoria min 10-06 Avis Stef microgram, l 15:00: 1 tab, Lead 00 Route: PO, Drug form: TAB, Daily, Dosing Weight 78.182, kg, Start date: 10/06/13 9:00:00, Duration: 30 day, Stop date: 11/04/13 9:00:00([facility] As: Vitamin B-12) Coreg No Julia 6.25 [...] Avis Stef tab, l 15:00: Route: PO, Lead 00 Drug form: TAB, Daily, Dosing Weight 78.182, kg, hold for SBP < 110, Start date: 10/06/13 9:00:00, Duration: 30 day, Stop date: 11/04/13 9:00:00([facility] as: Norvasc) docusate No Galilea 100 mg, 1 Memoria 10-06 Avis Stef cap, l 15:00: Route: PO, Lead 00 Drug form: CAP, BID, Dosing Weight 78.182, kg, Start date: 10/06/13 9:00:00, Duration: 30 day, Stop date: 11/04/13 17:00:00(S sharron as: Colace) (Do Not Crush) docusate No Howard 100 mg, 1 Mem oria sodium 100 10-06 Fer cap, l mg oral 15:00: Sebastian Route: PO, He rmann capsule Drug form: CAP, BID, Dosing Weight 78.182, kg, Start date: 10/06/13 9:00:00, Duration: 30 day, Stop date: 11/04/13 17:00:00(S sharron as: Colace) (Do Not Crush) Pulmicort No Galilea 1 Semaj shashi Flexhaler 10-06 Avis Stef inhalation l 15:00: , Route: Vinnie 00 INHALATION , Drug Form: PWDR, Dosing Weight 78.182, kg, BID, Start date: 10/06/13 9:00:00, Duration: 30 day, Stop date: 11/04/13 17:00:00 Fish Oil No Galilea 1,000 mg, Memoria 10-06 Avis Setf 1 cap, l 15:00: Route: PO, Lead Drug form: CAP, Daily, Dosing Weight 78.182, kg, Start date: 10/06/13 9:00:00, Duration: 30 day, Stop date: 11/04/13 9:00:00(Sa me as: MaxEPA, [place] 3 fish oil ) Non-Formul kinza Drug magnesium No Galilea 200 mg, M emoria oxide 10-06 Avis Stef 0.5 tab, l 15:00: Route: PO, Lead 00 Drug form: TAB, BID, Dosing Weight 78.182, kg, Start date: 10/06/13 9:00:00, Duration: 30 day, Stop date: 11/04/13 17:00:00(S sharron as: Mag-Ox 400) Magnesium oxide 349yd=047u g elemental magnesium Dose=____m g magnesium oxide (___mg elemental magnesium) multivitami No Galilea 1 tab, Memoria n 10-06 Avis Stef Route: PO, l 15:00: Drug Form: Vinnie 00 TAB, Dosing Weight 78.182, kg, Daily, Start date: 10/06/13 9:00:00, Duration: 30 day, Stop date: 11/04/13 9:00:00([facility] as:Thera) Take with food. liothyronin 2013- No Howard 5 Memor ia e 10-06 Fer microgram, l 15:00: Sebastian 1 tab, Route: PO, Drug form: TAB, Daily, Dosing Weight 78.182, kg, Start date: 10/06/13 9:00:00, Duration: 30 day, Stop date: 11/04/13 9:00:00(Sa me as: Cytomel) isosorbide No Galilea 20 mg, 1 Memoria dinitrate 10-06 Avis Stef tab, l 15:00: Route: PO, Drug form: TAB, TID, Dosing Weight 78.182, kg, Start date: 10/06/13 9:00:00, Duration: 30 day, Stop date: 11/04/13 17:00:00(S sharron as:Isordil ) Take on empty stomach/ full glass of water Lasix 20 mg No Galilea 20 mg, 1 Memoria oral tablet 10-06 Avis Stef tab, l 15:00: Route: PO, Drug form: TAB, Daily, Dosing Weight 78.182, kg, Start date: 10/06/13 9:00:00, Duration: 30 day, Stop date: 11/04/13 9:00:00([facility] as: Lasix) May cause GI upset. Give with food or milk. hydrALAZINE No Galilea 25 mg, 1 Memoria 25 mg oral 10-06 Avis Stef tab, l tablet 15:00: Route: PO, Salma Drug form: TAB, BID, Dosing Weight 78.182, kg, hold for SBP < 110, Start date: 10/06/13 9:00:00, Duration: 30 day, Stop date: 11/04/13 17:00:00(S [facility]ron as: Apresoline ) May interfere w/enteral feedings Take With Food. calcium-vit No Galilea 500 mg, Memoria corona D 500 10-06 Avis Stef Route: l mg-400 intl 15:00: CHEW, Drug Vinnie units oral 00 Form: tablet, CHEWTAB, chewable Dosing Weight 78.182, kg, Daily, Start date: 10/06/13 9:00:00, Duration: 30 day, Stop date: 11/04/13 9:00:00(ca lcium carbonate- vit D 500mg-400u nit chew TAB) Same as: Oscal 500+D cyanocobala No Galilea 1,000 M emoria min 10-06 Avis Stef microgram, l 15:00: 1 tab, Vinnie 00 Route: PO, Drug form: TAB, Daily, Dosing Weight 78.182, kg, Start date: 10/06/13 9:00:00, Duration: 30 day, Stop date: 11/04/13 9:00:00([facility] As: Vitamin B-12) Coreg No Julia 6.25 [...] Avis Stef tab, l 15:00: Route: PO, Lead 00 Drug form: TAB, Daily, Dosing Weight 78.182, kg, hold for SBP < 110, Start date: 10/06/13 9:00:00, Duration: 30 day, Stop date: 11/04/13 9:00:00([facility] as: Norvasc) docusate No Galilea 100 mg, [...] l mg oral 15:00: Sebastian Route: PO, rmann Drug form: CAP, BID, Dosing Weight 78.182, kg, Start date: 10/06/13 9:00:00, Duration: 30 day, Stop date: 11/04/13 17:00:00(S sharron as: Colace) (Do Not Crush) Pulmicort No Galilea 1 Semaj shashi Flexhaler 10-06 Avis Stef inhalation l 15:00: , Route: Vinnie 00 INHALATION , Drug Form: PWDR, Dosing Weight 78.182, kg, BID, Start date: 10/06/13 9:00:00, Duration: 30 day, Stop date: 11/04/13 17:00:00 Fish Oil No Galilea 1,000 mg, Memoria 10-06 Avis Stef 1 cap, l 15:00: Route: PO, Vinnie Drug form: CAP, Daily, Dosing Weight 78.182, kg, Start date: 10/06/13 9:00:00, Duration: 30 day, Stop date: 11/04/13 9:00:00(Sa me as: MaxEPA, [place] 3 fish oil ) Non-Formul kinza Drug magnesium No Galilea 200 mg, M emoria oxide 10-06 Avis Stef 0.5 tab, l 15:00: Route: PO, Lead Drug form: TAB, BID, Dosing Weight 78.182, kg, Start date: 10/06/13 9:00:00, Duration: 30 day, Stop date: 11/04/13 17:00:00(S [facility]ron as: Mag-Ox 400) Magnesium oxide 091hb=119x g elemental magnesium Dose=____m g magnesium oxide (___mg elemental magnesium) multivitami No Galilea 1 tab, Memoria n 10-06 Avis Stef Route: PO, l 15:00: Drug Form: Vinnie 00 TAB, Dosing Weight 78.182, kg, Daily, Start date: 10/06/13 9:00:00, Duration: 30 day, Stop date: 11/04/13 9:00:00(Sa me as:Thera) Take with food. liothyronin No Howard 5 Memor ia e 10-06 Fer microgram, l 15:00: Sebastian 1 tab, Vinnie 00 Route: PO, Drug form: TAB, Daily, Dosing Weight 78.182, kg, Start date: 10/06/13 9:00:00, Duration: 30 day, Stop date: 11/04/13 9:00:00(Sa me as: Cytomel) isosorbide No Galilea 20 mg, 1 Memoria dinitrate 10-06 Avis Stef tab, l 15:00: Route: PO, Lead 00 Drug form: TAB, TID, Dosing Weight 78.182, kg, Start date: 10/06/13 9:00:00, Duration: 30 day, Stop date: 11/04/13 17:00:00(S sharron as:Isordil ) Take on empty stomach/ full glass of water Lasix 20 mg No Galilea 20 mg, 1 Memoria oral tablet 10-06 Avis Stef tab, l 15:00: Route: PO, Drug form: TAB, Daily, Dosing Weight 78.182, kg, Start date: 10/06/13 9:00:00, Duration: 30 day, Stop date: 11/04/13 9:00:00([facility] as: Lasix) May cause GI upset. Give with food or milk. hydrALAZINE No Galilea 25 mg, 1 Memoria 25 mg oral 10-06 Avis Stef tab, l tablet 15:00: Route: PO, Salma Drug form: TAB, BID, Dosing Weight 78.182, kg, hold for SBP < 110, Start date: 10/06/13 9:00:00, Duration: 30 day, Stop date: 11/04/13 17:00:00(S sharron as: Apresoline ) May interfere w/enteral feedings Take With Food. calcium-vit No Galilea 500 mg, Memoria corona D 500 10-06 Avis Stef Route: l mg-400 intl 15:00: CHEW, Drug Lead units oral 00 Form: tablet, CHEWTAB, chewable Dosing Weight 78.182, kg, Daily, Start date: 10/06/13 9:00:00, Duration: 30 day, Stop date: 11/04/13 9:00:00(ca lcium carbonate- vit D 500mg-400u nit chew TAB) Same as: Oscal 500+D cyanocobala No Galilea 1,000 M emoria min 10-06 Avis Stef microgram, l 15:00: 1 tab, Lead 00 Route: PO, Drug form: TAB, Daily, Dosing Weight 78.182, kg, Start date: 10/06/13 9:00:00, Duration: 30 day, Stop date: 11/04/13 9:00:00([facility] As: Vitamin B-12) Coreg No Julia 6.25 [...] day, Stop date: 11/04/13 9:00:00(Sa me as: Norvasc) docusate No Galilea 100 mg, [...] 15:00: Sebastian Route: PO, He rmann capsule Drug form: CAP, BID, Dosing Weight 78.182, kg, Start date: 10/06/13 9:00:00, Duration: 30 day, Stop date: 11/04/13 17:00:00(S [facility]ron as: Colace) (Do Not Crush) Pulmicort No Galilea 1 Semaj shashi Flexhaler 10-06 Avis Stef inhalation l 15:00: , Route: Lead 00 INHALATION , Drug Form: PWDR, Dosing Weight 78.182, kg, BID, Start date: 10/06/13 9:00:00, Duration: 30 day, Stop date: 11/04/13 17:00:00 Fish Oil No Galilea 1,000 mg, Memoria 10-06 Avis Stef 1 cap, l 15:00: Route: PO, Lead 00 Drug form: CAP, Daily, Dosing Weight 78.182, kg, Start date: 10/06/13 9:00:00, Duration: 30 day, Stop date: 11/04/13 9:00:00([facility] as: MaxEPA, [place] 3 fish oil ) Non-Formul kinza Drug magnesium No Galilea 200 mg, M emoria oxide 10-06 Avis Stef 0.5 tab, l 15:00: Route: PO, Vinnie 00 Drug form: TAB, BID, Dosing Weight 78.182, kg, Start date: 10/06/13 9:00:00, Duration: 30 day, Stop date: 11/04/13 17:00:00(S [facility]ron as: Mag-Ox 400) Magnesium oxide 111lz=365s g elemental magnesium Dose=____m g magnesium oxide (___mg elemental magnesium) multivitami No Galilea 1 tab, Memoria n 10-06 Avis Stef Route: PO, l 15:00: Drug Form: Vinnie 00 TAB, Dosing Weight 78.182, kg, Daily, Start date: 10/06/13 9:00:00, Duration: 30 day, Stop date: 11/04/13 9:00:00(Sa me as:Thera) Take with food. liothyronin No Howard 5 Memor ia e 10-06 Fer microgram, l 15:00: Sebastian 1 tab, Vinnie 00 Route: PO, Drug form: TAB, Daily, Dosing Weight 78.182, kg, Start date: 10/06/13 9:00:00, Duration: 30 day, Stop date: 11/04/13 9:00:00(Sa me as: Cytomel) isosorbide No Galilea 20 mg, 1 Memoria dinitrate 10-06 Avis Stef tab, l 15:00: Route: PO, Vinnie 00 Drug form: TAB, TID, Dosing Weight 78.182, [...] day, Stop date: 11/04/13 9:00:00(Sa me as: Lasix) May cause GI upset. Give with food or milk. hydrALAZINE No Galilea 25 mg, 1 Memoria 25 mg oral 10-06 Avis Stef tab, l tablet 15:00: Route: PO, Salma Drug form: TAB, BID, Dosing Weight 78.182, kg, hold for SBP < 110, Start date: 10/06/13 9:00:00, Duration: 30 day, Stop date: 11/04/13 17:00:00(S sharron as: Apresoline ) May interfere w/enteral feedings Take With Food. calcium-vit No Galilea 500 mg, Memoria corona D 500 10-06 Avis Stef Route: l mg-400 intl 15:00: CHEW, Drug Lead units oral 00 Form: tablet, CHEWTAB, chewable Dosing Weight 78.182, kg, Daily, Start date: 10/06/13 9:00:00, Duration: 30 day, Stop date: 11/04/13 9:00:00(ca lcium carbonate- vit D 500mg-400u nit chew TAB) Same as: Oscal 500+D cyanocobala No Galilea 1,000 M emoria min 10-06 Avis Stef microgram, l 15:00: 1 tab, Vinnie 00 Route: PO, Drug form: TAB, Daily, Dosing Weight 78.182, kg, Start date: 10/06/13 9:00:00, Duration: 30 day, Stop date: 11/04/13 9:00:00(Sa me As: Vitamin B-12) Coreg No Julia 6.25 [...] Avis Stef tab, l 15:00: Route: PO, Lead 00 Drug form: TAB, Daily, Dosing Weight 78.182, kg, hold for SBP < 110, Start date: 10/06/13 9:00:00, Duration: 30 day, Stop date: 11/04/13 9:00:00(Sa me as: Norvasc) docusate No Galilea 100 mg, 1 Memoria 10-06 Avis Stef cap, l 15:00: Route: PO, Lead Drug form: CAP, BID, Dosing Weight 78.182, kg, Start date: 10/06/13 9:00:00, Duration: 30 day, Stop date: 11/04/13 17:00:00(S sharron as: Colace) (Do Not Crush) docusate No Howard 100 mg, 1 Mem oria sodium 100 10-06 Fer cap, l mg oral 15:00: Sebastian Route: PO, rmann capsule Drug form: CAP, BID, Dosing Weight 78.182, kg, Start date: 10/06/13 9:00:00, Duration: 30 day, Stop date: 11/04/13 17:00:00(S sharron as: Colace) (Do Not Crush) Pulmicort No Galilea 1 Semaj shashi Flexhaler 10-06 Avis Stef inhalation l 15:00: , Route: Vinnie 00 INHALATION , Drug Form: PWDR, Dosing Weight 78.182, kg, BID, Start date: 10/06/13 9:00:00, Duration: 30 day, Stop date: 11/04/13 17:00:00 Fish Oil No Galilea 1,000 mg, Memoria 10-06 Avis Stef 1 cap, l 15:00: Route: PO, Lead Drug form: CAP, Daily, Dosing Weight 78.182, kg, Start date: 10/06/13 9:00:00, Duration: 30 day, Stop date: 11/04/13 9:00:00([facility] as: [employer], [place] fish oil ) Non-Formul kinza Drug magnesium No Galilea 200 mg, M emoria oxide 10-06 Avis Stef 0.5 tab, l 15:00: Route: PO, Drug form: TAB, BID, Dosing Weight 78.182, kg, Start date: 10/06/13 9:00:00, Duration: 30 day, Stop date: 11/04/13 17:00:00(S sharron as: Mag-Ox 400) Magnesium oxide 753pm=881f g elemental magnesium Dose=____m g magnesium oxide (___mg elemental magnesium) multivitami No Galilea 1 tab, Memoria n 10-06 Avis Stef Route: PO, l 15:00: Drug Form: Lead 00 TAB, Dosing Weight 78.182, kg, Daily, Start date: 10/06/13 9:00:00, Duration: 30 day, Stop date: 11/04/13 9:00:00(Sa me as:Thera) Take with food. liothyronin No Howard 5 Memor ia e 10-06 Fer microgram, l 15:00: Sebastian 1 tab, Route: PO, Drug form: TAB, Daily, Dosing Weight 78.182, kg, Start date: 10/06/13 9:00:00, Duration: 30 day, Stop date: 11/04/13 9:00:00(Sa me as: Cytomel) isosorbide No Galilea 20 mg, 1 Memoria dinitrate 10-06 Avis Stef tab, l 15:00: Route: PO, Drug form: TAB, TID, Dosing Weight 78.182, kg, Start date: 10/06/13 9:00:00, Duration: 30 day, Stop date: 11/04/13 17:00:00(S sharron as:Isordil ) Take on empty stomach/ full glass of water Lasix 20 mg No Galilea 20 mg, 1 Memoria oral tablet 10-06 Avis Stef tab, l 15:00: Route: PO, Drug form: TAB, Daily, Dosing Weight 78.182, kg, Start date: 10/06/13 9:00:00, Duration: 30 day, Stop date: 11/04/13 9:00:00(Sa me as: Lasix) May cause GI upset. Give with food or milk. hydrALAZINE No Galilea 25 mg, 1 Memoria 25 mg oral 10-06 Avis Stef tab, l tablet 15:00: Route: PO, Salma nn 00 Drug form: TAB, BID, Dosing Weight 78.182, kg, hold for SBP < 110, Start date: 10/06/13 9:00:00, Duration: 30 day, Stop date: 11/04/13 17:00:00(S sharron as: Apresoline ) May interfere w/enteral feedings Take With Food. calcium-vit No Galilea 500 mg, Memoria corona D 500 10-06 Avis Stef Route: l mg-400 intl 15:00: CHEW, Drug Vinnie units oral 00 Form: tablet, CHEWTAB, chewable Dosing Weight 78.182, kg, Daily, Start date: 10/06/13 9:00:00, Duration: 30 day, Stop date: 11/04/13 9:00:00(ca lcium carbonate- vit D 500mg-400u nit chew TAB) Same as: Oscal 500+D cyanocobala No Galilea 1,000 M emoria min 10-06 Avis Stef microgram, l 15:00: 1 tab, Lead 00 Route: PO, Drug form: TAB, Daily, Dosing Weight 78.182, kg, Start date: 10/06/13 9:00:00, Duration: 30 day, Stop date: 11/04/13 9:00:00(Sa ga As: Vitamin B-12) Coreg No Julia 6.25 [...] or chew. (Same As: Ecotrin) Norvasc No Galliea 5 mg, 1 Mem oria 10-06 Avis Stef tab, l 15:00: Route: PO, Lead 00 Drug form: TAB, Daily, Dosing Weight 78.182, kg, hold for SBP < 110, Start date: 10/06/13 9:00:00, Duration: 30 day, Stop date: 11/04/13 9:00:00(Sa me as: Norvasc) docusate No Galilea 100 mg, [...] 17:00:00(S sharron as: Colace) (Do Not Crush) Pulmicort No Galilea 1 Semaj shashi Flexhaler 10-06 Avis Stef inhalation l 15:00: , Route: Lead 00 INHALATION , Drug Form: PWDR, Dosing Weight 78.182, kg, BID, Start date: 10/06/13 9:00:00, Duration: 30 day, Stop date: 11/04/13 17:00:00 Fish Oil No Glailea 1,000 mg, Memoria 10-06 Avis Stef 1 cap, l 15:00: Route: PO, Vinnie 00 Drug form: CAP, Daily, Dosing Weight 78.182, kg, Start date: 10/06/13 9:00:00, Duration: 30 day, Stop date: 11/04/13 9:00:00( me as: MaxEPA, [place] 3 fish oil ) Non-Formul kinza Drug magnesium No Galilea 200 mg, M emoria oxide 10-06 Avis Stef 0.5 tab, l 15:00: Route: PO, Drug form: TAB, BID, Dosing Weight 78.182, kg, Start date: 10/06/13 9:00:00, Duration: 30 day, Stop date: 11/04/13 17:00:00(S sharron as: Mag-Ox 400) Magnesium oxide 466ie=202k g elemental magnesium Dose=____m g magnesium oxide (___mg elemental magnesium) multivitami No Galilea 1 tab, Memoria n 10-06 Avis Stef Route: PO, l 15:00: Drug Form: Vinnie 00 TAB, Dosing Weight 78.182, kg, Daily, Start date: 10/06/13 9:00:00, Duration: 30 day, Stop date: 11/04/13 9:00:00([facility] as:Thera) Take with food. liothyronin No Howard 5 Memor ia e 10-06 Fer microgram, l 15:00: Sebastian 1 tab, Route: PO, Drug form: TAB, Daily, Dosing Weight 78.182, kg, Start date: 10/06/13 9:00:00, Duration: 30 day, Stop date: 11/04/13 9:00:00([facility] as: Cytomel) isosorbide No Galilea 20 mg, 1 Memoria dinitrate 10-06 Avis Stef tab, l 15:00: Route: PO, Drug form: TAB, TID, Dosing Weight 78.182, kg, Start date: 10/06/13 9:00:00, Duration: 30 day, Stop date: 11/04/13 17:00:00(S sharron as:Isordil ) Take on empty stomach/ full glass of water Lasix 20 mg No Galilea 20 mg, 1 Memoria oral tablet 10-06 Avis Stef tab, l 15:00: Route: PO, Drug form: TAB, Daily, Dosing Weight 78.182, kg, Start date: 10/06/13 9:00:00, Duration: 30 day, Stop date: 11/04/13 9:00:00(Sa me as: Lasix) May cause GI upset. Give with food or milk. hydrALAZINE No Galilea 25 mg, 1 Memoria 25 mg oral 10-06 Avis Stef tab, l tablet 15:00: Route: PO, Salma nn 00 Drug form: TAB, BID, Dosing Weight 78.182, kg, hold for SBP < 110, Start date: 10/06/13 9:00:00, Duration: 30 day, Stop date: 11/04/13 17:00:00(S sharron as: Apresoline ) May interfere w/enteral feedings Take With Food. calcium-vit No Galilea 500 mg, Memoria corona D 500 10-06 Avis Stef Route: l mg-400 intl 15:00: CHEW, Drug Lead units oral 00 Form: tablet, CHEWTAB, chewable Dosing Weight 78.182, kg, Daily, Start date: 10/06/13 9:00:00, Duration: 30 day, Stop date: 11/04/13 9:00:00(ca lcium carbonate- vit D 500mg-400u nit chew TAB) Same as: Oscal 500+D cyanocobala No Galilea 1,000 M emoria min 10-06 Avis Stef microgram, l 15:00: 1 tab, Lead 00 Route: PO, Drug form: TAB, Daily, Dosing Weight 78.182, kg, Start date: 10/06/13 9:00:00, Duration: 30 day, Stop date: 11/04/13 9:00:00(Sa me As: Vitamin B-12) Coreg No Julia 6.25 [...] day, Stop date: 11/04/13 9:00:00(Sa me as: Norvasc) docusate No Galilea 100 mg, 1 Memoria 10-06 Avis Stef cap, l 15:00: Route: PO, Lead 00 Drug form: CAP, BID, Dosing Weight 78.182, kg, Start date: 10/06/13 9:00:00, Duration: 30 day, Stop date: 11/04/13 17:00:00(S sharron as: Colace) (Do Not Crush) docusate No Howard 100 mg, 1 Mem oria sodium 100 10-06 Fer cap, l mg oral 15:00: Sebastian Route: PO, He rmann capsule Drug form: CAP, BID, Dosing Weight 78.182, kg, Start date: 10/06/13 9:00:00, Duration: 30 day, Stop date: 11/04/13 17:00:00(S sharron as: Colace) (Do Not Crush) Pulmicort No Galilea 1 Semaj shashi Flexhaler 10-06 Avis Stef inhalation l 15:00: , Route: Vinnie 00 INHALATION , Drug Form: PWDR, Dosing Weight 78.182, kg, BID, Start date: 10/06/13 9:00:00, Duration: 30 day, Stop date: 11/04/13 17:00:00 Fish Oil No Galilea 1,000 mg, Memoria 10-06 Avis Stef 1 cap, l 15:00: Route: PO, Vinnie 00 Drug form: CAP, Daily, Dosing Weight 78.182, kg, Start date: 10/06/13 9:00:00, Duration: 30 day, Stop date: 11/04/13 9:00:00(Sa me as: MaxEPA, [place] 3 fish oil ) Non-Formul kinza Drug magnesium No Galilea 200 mg, M emoria oxide 10-06 Avis Stef 0.5 tab, l 15:00: Route: PO, Drug form: TAB, BID, Dosing Weight 78.182, kg, Start date: 10/06/13 9:00:00, Duration: 30 day, Stop date: 11/04/13 17:00:00(S sharron as: Mag-Ox 400) Magnesium oxide 279cr=376u g elemental magnesium Dose=____m g magnesium oxide (___mg elemental magnesium) multivitami No Galilea 1 tab, Memoria n 10-06 Avis Stef Route: PO, l 15:00: Drug Form: TAB, Dosing Weight 78.182, kg, Daily, Start date: 10/06/13 9:00:00, Duration: 30 day, Stop date: 11/04/13 9:00:00(Sa me as:Thera) Take with food. liothyronin No Howard 5 Memor ia e 10-06 Fer microgram, l 15:00: Sebastian 1 tab, Route: PO, Drug form: TAB, Daily, Dosing Weight 78.182, kg, Start date: 10/06/13 9:00:00, Duration: 30 day, Stop date: 11/04/13 9:00:00(Sa me as: Cytomel) isosorbide No Galilea 20 mg, 1 Memoria dinitrate 10-06 Avis Stef tab, l 15:00: Route: PO, Drug form: TAB, TID, Dosing Weight 78.182, kg, Start date: 10/06/13 9:00:00, Duration: 30 day, Stop date: 11/04/13 17:00:00(S sharron as:Isordil ) Take on empty stomach/ full glass of water Lasix 20 mg No Galilea 20 mg, 1 Memoria oral tablet 10-06 Avis Stef tab, l 15:00: Route: PO, Lead 00 Drug form: TAB, Daily, Dosing Weight 78.182, kg, Start date: 10/06/13 9:00:00, Duration: 30 day, Stop date: 11/04/13 9:00:00(Sa me as: Lasix) May cause GI upset. Give with food or milk. hydrALAZINE No Galilea 25 mg, 1 Memoria 25 mg oral 10-06 Avis Stef tab, l tablet 15:00: Route: PO, Salma nn Drug form: TAB, BID, Dosing Weight 78.182, kg, hold for SBP < 110, Start date: 10/06/13 9:00:00, Duration: 30 day, Stop date: 11/04/13 17:00:00(S sharron as: Apresoline ) May interfere w/enteral feedings Take With Food. Pulmicort No Galilea 1 Semaj shashi Flexhaler 10-06 Avis Stef inhalation l 15:00: , Route: Vinnie 00 INHALATION , Drug Form: PWDR, Dosing Weight 78.182, kg, BID, Start date: 10/06/13 9:00:00, Duration: 30 day, Stop date: 11/04/13 17:00:00 Fish Oil No Galilea 1,000 mg, Memoria 10-06 Avis Stef 1 cap, l 15:00: Route: PO, Lead Drug form: CAP, Daily, Dosing Weight 78.182, kg, Start date: 10/06/13 9:00:00, Duration: 30 day, Stop date: 11/04/13 9:00:00(Sa me as: MaxEPA, [place] 3 fish oil ) Non-Formul kinza Drug calcium-vit No Galilea 500 mg, Memoria corona D 500 10-06 Avis Stef Route: l mg-400 intl 15:00: CHEW, Drug Vinnie units oral 00 Form: tablet, CHEWTAB, chewable Dosing Weight 78.182, kg, Daily, Start date: 10/06/13 9:00:00, Duration: 30 day, Stop date: 11/04/13 9:00:00(ca lcium carbonate- vit D 500mg-400u nit chew TAB) Same as: Oscal 500+D magnesium No Galilea 200 mg, M emoria oxide 10-06 Avis Stef 0.5 tab, l 15:00: Route: PO, Drug form: TAB, BID, Dosing Weight 78.182, kg, Start date: 10/06/13 9:00:00, Duration: 30 day, Stop date: 11/04/13 17:00:00(S sharron as: Mag-Ox 400) Magnesium oxide 527mg=149e g elemental magnesium Dose=____m g magnesium oxide (___mg elemental magnesium) multivitami No Galilea 1 tab, Memoria n 10-06 Avis Stef Route: PO, l 15:00: Drug Form: TAB, Dosing Weight 78.182, kg, Daily, Start date: 10/06/13 9:00:00, Duration: 30 day, Stop date: 11/04/13 9:00:00(Sa me as:Thera) Take with food. liothyronin No Howard 5 Memor ia e 10-06 Fer microgram, l 15:00: Sebastian 1 tab, Route: PO, Drug form: TAB, Daily, Dosing Weight 78.182, kg, Start date: 10/06/13 9:00:00, Duration: 30 day, Stop date: 11/04/13 9:00:00(Sa me as: Cytomel) isosorbide No Galilea 20 mg, 1 Memoria dinitrate 10-06 Avis Stef tab, l 15:00: Route: PO, Drug form: TAB, TID, Dosing Weight 78.182, kg, Start date: 10/06/13 9:00:00, Duration: 30 day, Stop date: 11/04/13 17:00:00(S sharron as:Isordil ) Take on empty stomach/ full glass of water Lasix 20 mg No Galilea 20 mg, 1 Memoria oral tablet 10-06 Avis Stef tab, l 15:00: Route: PO, Drug form: TAB, Daily, Dosing Weight 78.182, kg, Start date: 10/06/13 9:00:00, Duration: 30 day, Stop date: 11/04/13 9:00:00(Sa me as: Lasix) May cause GI upset. Give with food or milk. hydrALAZINE No Galilea 25 mg, 1 Memoria 25 mg oral 10-06 Avis Stef tab, l tablet 15:00: Route: PO, Salma nn 00 Drug form: TAB, BID, Dosing Weight 78.182, kg, hold for SBP < 110, Start date: 10/06/13 9:00:00, Duration: 30 day, Stop date: 11/04/13 17:00:00(S sharron as: Apresoline ) May interfere w/enteral feedings Take With Food. calcium-vit No Galilea 500 mg, Memoria corona D 500 10-06 Avis Stef Route: l mg-400 intl 15:00: CHEW, Drug Vinnie units oral 00 Form: tablet, CHEWTAB, chewable Dosing Weight 78.182, kg, Daily, Start date: 10/06/13 9:00:00, Duration: 30 day, Stop date: 11/04/13 9:00:00(ca lcium carbonate- vit D 500mg-400u nit chew TAB) Same as: Oscal 500+D cyanocobala No Galilea 1,000 M emoria min 10-06 Avis Stef microgram, l 15:00: 1 tab, Vinnie 00 Route: PO, Drug form: TAB, Daily, Dosing Weight 78.182, kg, Start date: 10/06/13 9:00:00, Duration: 30 day, Stop date: 11/04/13 9:00:00(Sa me As: Vitamin B-12) Coreg No Julia 6.25 [...] not crush or chew. (Same As: Ecotrin) cyanocobala No Galilea 1,000 M emoria min 10-06 Avis Stef microgram, l 15:00: 1 tab, Lead 00 Route: PO, Drug form: TAB, Daily, Dosing Weight 78.182, kg, Start date: 10/06/13 9:00:00, Duration: 30 day, Stop date: 11/04/13 9:00:00( me As: Vitamin B-12) Norvasc No Galilea 5 mg, 1 Mem oria 10-06 Avis Stef tab, l 15:00: Route: PO, Lead 00 Drug form: TAB, Daily, Dosing Weight 78.182, kg, hold for SBP < 110, Start date: 10/06/13 9:00:00, Duration: 30 day, Stop date: 11/04/13 9:00:00(Sa me as: Norvasc) docusate No Galilea 100 mg, [...] l mg oral 15:00: Sebastian Route: PO, rmann capsule Drug form: CAP, BID, Dosing Weight 78.182, kg, Start date: 10/06/13 9:00:00, Duration: 30 day, Stop date: 11/04/13 17:00:00(S sharron as: Colace) (Do Not Crush) Coreg No Julia 6.25 mg, 1 Mem oria 1-22 Trice tab, l 15:00: Plessner Route: PO, [...] Avis Stef tab, l 15:00: Route: PO, Lead 00 Drug form: TAB, Daily, Dosing Weight 78.182, kg, hold for SBP < 110, Start date: 10/06/13 9:00:00, Duration: 30 day, Stop date: 11/04/13 9:00:00(Sa me as: Norvasc) docusate No Galilea 100 mg, [...] 17:00:00(S sharron as: Colace) (Do Not Crush) Pulmicort No Galilea 1 Semaj shashi Flexhaler [...] Stop date: 11/04/13 9:00:00(Sa me as: MaxEPA, [place] 3 fish oil ) Non-Formul kinza Drug magnesium No Galilea 200 mg, M emoria oxide 10-06 Avis Stef 0.5 tab, l 15:00: Route: PO, Drug form: TAB, BID, Dosing Weight 78.182, kg, Start date: 10/06/13 9:00:00, Duration: 30 day, Stop date: 11/04/13 17:00:00(S sharron as: Mag-Ox 400) Magnesium oxide 307tr=152s g elemental magnesium Dose=____m g magnesium oxide (___mg elemental magnesium) multivitami No Gaillea 1 tab, Memoria n 10-06 Avis Stef Route: PO, l 15:00: Drug Form: TAB, Dosing Weight 78.182, kg, Daily, Start date: 10/06/13 9:00:00, Duration: 30 day, Stop date: 11/04/13 9:00:00(Sa me as:Thera) Take with food. liothyronin No Howard 5 Memor ia e 10-06 Fer microgram, l 15:00: Sebastian 1 tab, Route: PO, Drug form: TAB, Daily, Dosing Weight 78.182, kg, Start date: 10/06/13 9:00:00, Duration: 30 day, Stop date: 11/04/13 9:00:00(Sa me as: Cytomel) isosorbide No Galilea 20 mg, 1 Memoria dinitrate 10-06 Avis Stef tab, l 15:00: Route: PO, Lead 00 Drug form: TAB, TID, Dosing Weight 78.182, kg, Start date: 10/06/13 9:00:00, Duration: 30 day, Stop date: 11/04/13 17:00:00(S sharron as:Isordil ) Take on empty stomach/ full glass of water Lasix 20 mg No Galilea 20 mg, 1 Memoria oral tablet 10-06 Avis Stef tab, l 15:00: Route: PO, Lead 00 Drug form: TAB, Daily, Dosing Weight 78.182, kg, Start date: 10/06/13 9:00:00, Duration: 30 day, Stop date: 11/04/13 9:00:00(Sa me as: Lasix) May cause GI upset. Give with food or milk. hydrALAZINE No Galilea 25 mg, 1 Memoria 25 mg oral 10-06 Avis Stef tab, l tablet 15:00: Route: PO, Salma Drug form: TAB, BID, Dosing Weight 78.182, kg, hold for SBP < 110, Start date: 10/06/13 9:00:00, Duration: 30 day, Stop date: 11/04/13 17:00:00(S sharron as: Apresoline ) May interfere w/enteral feedings Take With Food. calcium-vit No Galilea 500 mg, Memoria corona D 500 10-06 Avis Finch Route: l mg-400 intl 15:00: CHEW, Drug Vinnie units oral 00 Form: tablet, CHEWTAB, chewable Dosing Weight 78.182, kg, Daily, Start date: 10/06/13 9:00:00, Duration: 30 day, Stop date: 11/04/13 9:00:00(ca lcium carbonate- vit D 500mg-400u nit chew TAB) Same as: Oscal 500+D cyanocobala No Galilea 1,000 M emoria min 10-06 Avis Stef microgram, l 15:00: 1 tab, Vinnie 00 Route: PO, Drug form: TAB, Daily, Dosing Weight 78.182, kg, Start date: 10/06/13 9:00:00, Duration: 30 day, Stop date: 11/04/13 9:00:00([facility] As: Vitamin B-12) Coreg No Julia 6.25 [...] Avis Stef tab, l 15:00: Route: PO, Lead 00 Drug form: TAB, Daily, Dosing Weight 78.182, kg, hold for SBP < 110, Start date: 10/06/13 9:00:00, Duration: 30 day, Stop date: 11/04/13 9:00:00([facility] as: Norvasc) docusate No Galilea 100 mg, 1 Memoria 10-06 Avis Stef cap, l 15:00: Route: PO, Lead 00 Drug form: CAP, BID, Dosing Weight [...] 17:00:00(S sharron as: Colace) (Do Not Crush) Pulmicort No Galilea 1 Semaj shashi Flexhaler [...] Stop date: 11/04/13 9:00:00(Sa me as: MaxEPA, [place] 3 fish oil ) Non-Formul kinza Drug magnesium No Galilea 200 mg, M emoria oxide 10-06 Avis Stef 0.5 tab, l 15:00: Route: PO, Drug form: TAB, BID, Dosing Weight 78.182, kg, Start date: 10/06/13 9:00:00, Duration: 30 day, Stop date: 11/04/13 17:00:00(S sharron as: Mag-Ox 400) Magnesium oxide 031wk=920j g elemental magnesium Dose=____m g magnesium oxide (___mg elemental magnesium) multivitami No Galilea 1 tab, Memoria n 10-06 Avis Stef Route: PO, l 15:00: Drug Form: Lead 00 TAB, Dosing Weight 78.182, kg, Daily, Start date: 10/06/13 9:00:00, Duration: 30 day, Stop date: 11/04/13 9:00:00(Sa me as:Thera) Take with food. liothyronin No Howard 5 Memor ia e 10-06 Fer microgram, l 15:00: Sebastian 1 tab, Route: PO, Drug form: TAB, Daily, Dosing Weight 78.182, kg, Start date: 10/06/13 9:00:00, Duration: 30 day, Stop date: 11/04/13 9:00:00(Sa me as: Cytomel) isosorbide No Galilea 20 mg, 1 Memoria dinitrate 10-06 Avis Stef tab, l 15:00: Route: PO, Lead 00 Drug form: TAB, TID, Dosing Weight 78.182, kg, Start date: 10/06/13 9:00:00, Duration: 30 day, Stop date: 11/04/13 17:00:00(S sharron as:Isordil ) Take on empty stomach/ full glass of water Lasix 20 mg No Galilea 20 mg, 1 Memoria oral tablet 10-06 Avis Stfe tab, l 15:00: Route: PO, Vinnie 00 Drug form: TAB, Daily, Dosing Weight 78.182, kg, Start date: 10/06/13 9:00:00, Duration: 30 day, Stop date: 11/04/13 9:00:00(Sa me as: Lasix) May cause GI upset. Give with food or milk. hydrALAZINE No Galilea 25 mg, 1 Memoria 25 mg oral 10-06 Avis Stef tab, l tablet 15:00: Route: PO, Salma nn 00 Drug form: TAB, BID, Dosing Weight 78.182, kg, hold for SBP < 110, Start date: 10/06/13 9:00:00, Duration: 30 day, Stop date: 11/04/13 17:00:00(S sharron as: Apresoline ) May interfere w/enteral feedings Take With Food. calcium-vit No Galilea 500 mg, Memoria corona D 500 10-06 Avis Stef Route: l mg-400 intl 15:00: CHEW, Drug Lead units oral 00 Form: tablet, CHEWTAB, chewable Dosing Weight 78.182, kg, Daily, Start date: 10/06/13 9:00:00, Duration: 30 day, Stop date: 11/04/13 9:00:00(ca lcium carbonate- vit D 500mg-400u nit chew TAB) Same as: Oscal 500+D cyanocobala No Galilea 1,000 M emoria min 10-06 Avis Stef microgram, l 15:00: 1 tab, Lead 00 Route: PO, Drug form: TAB, Daily, Dosing Weight 78.182, kg, Start date: 10/06/13 9:00:00, Duration: 30 day, Stop date: 11/04/13 9:00:00([facility] As: Vitamin B-12) Coreg No Julia 6.25 [...] Avis Stef tab, l 15:00: Route: PO, Lead 00 Drug form: TAB, Daily, Dosing Weight 78.182, kg, hold for SBP < 110, Start date: 10/06/13 9:00:00, Duration: 30 day, Stop date: 11/04/13 9:00:00([facility] as: Norvasc) docusate No Galilea 100 mg, 1 Memoria 10-06 Avis Stef cap, l 15:00: Route: PO, Lead 00 Drug form: CAP, BID, Dosing Weight 78.182, kg, Start date: 10/06/13 9:00:00, Duration: 30 day, Stop date: 11/04/13 17:00:00(S sharron as: Colace) (Do Not Crush) docusate No Howard 100 mg, 1 Mem oria sodium 100 10-06 Fer cap, l mg oral 15:00: Sebastian Route: PO, He rmann capsule Drug form: CAP, BID, Dosing Weight 78.182, kg, Start date: 10/06/13 9:00:00, Duration: 30 day, Stop date: 11/04/13 17:00:00(S sharron as: Colace) (Do Not Crush) Pulmicort No Galilea 1 Semaj shashi Flexhaler 10-06 Avis Stef inhalation l 15:00: , Route: Lead INHALATION , Drug Form: PWDR, Dosing Weight 78.182, kg, BID, Start date: 10/06/13 9:00:00, Duration: 30 day, Stop date: 11/04/13 17:00:00 Fish Oil No Galilea 1,000 mg, Memoria 10-06 Avis Stef 1 cap, l 15:00: Route: PO, Vinnie 00 Drug form: CAP, Daily, Dosing Weight 78.182, kg, Start date: 10/06/13 9:00:00, Duration: 30 day, Stop date: 11/04/13 9:00:00(Sa me as: MaxEPA, [place] 3 fish oil ) Non-Formul kinza Drug magnesium No Galilea 200 mg, M emoria oxide 10-06 Avis Stef 0.5 tab, l 15:00: Route: PO, Lead Drug form: TAB, BID, Dosing Weight 78.182, kg, Start date: 10/06/13 9:00:00, Duration: 30 day, Stop date: 11/04/13 17:00:00(S sharron as: Mag-Ox 400) Magnesium oxide 522xw=726h g elemental magnesium Dose=____m g magnesium oxide (___mg elemental magnesium) multivitami No Galilea 1 tab, Memoria n 10-06 Avis Stef Route: PO, l 15:00: Drug Form: Vinnie 00 TAB, Dosing Weight 78.182, kg, Daily, Start date: 10/06/13 9:00:00, Duration: 30 day, Stop date: 11/04/13 9:00:00(Sa me as:Thera) Take with food. liothyronin No Howard 5 Memor ia e 10-06 Fer microgram, l 15:00: Sebastian 1 tab, Vinnie 00 Route: PO, Drug form: TAB, Daily, Dosing Weight 78.182, kg, Start date: 10/06/13 9:00:00, Duration: 30 day, Stop date: 11/04/13 9:00:00([facility] as: Cytomel) isosorbide No Galilea 20 mg, 1 Memoria dinitrate 10-06 Avis Stef tab, l 15:00: Route: PO, Vinnie 00 Drug form: TAB, TID, Dosing Weight 78.182, [...] 9:00:00, Duration: 30 day, Stop date: 11/04/13 9:00:00([facility] as: Lasix) May cause GI upset. Give with food or milk. hydrALAZINE No Galilea 25 mg, 1 Memoria 25 mg oral 10-06 Avis Stef tab, l tablet 15:00: Route: PO, Salma nn Drug form: TAB, BID, Dosing Weight 78.182, kg, hold for SBP < 110, Start date: 10/06/13 9:00:00, Duration: 30 day, Stop date: 11/04/13 17:00:00(S sharron as: Apresoline ) May interfere w/enteral feedings Take With Food. calcium-vit No Galilea 500 mg, Memoria corona D 500 10-06 Avis Stef Route: l mg-400 intl 15:00: CHEW, Drug Vinnie units oral 00 Form: tablet, CHEWTAB, chewable Dosing Weight 78.182, kg, Daily, Start date: 10/06/13 9:00:00, Duration: 30 day, Stop date: 11/04/13 9:00:00(ca lcium carbonate- vit D 500mg-400u nit chew TAB) Same as: Oscal 500+D cyanocobala No Galilea 1,000 M emoria min 10-06 Avis Stef microgram, l 15:00: 1 tab, Vinnie 00 Route: PO, Drug form: TAB, Daily, Dosing Weight 78.182, kg, Start date: 10/06/13 9:00:00, Duration: 30 day, Stop date: 11/04/13 9:00:00( me As: Vitamin B-12) Coreg No Julia 6.25 [...] 9:00:00, Duration: 30 day, Stop date: 11/04/13 9:00:00([facility] as: Norvasc) docusate No Galilea 100 mg, [...] 15:00: Sebastian Route: PO, He rmann capsule Drug form: CAP, BID, Dosing Weight 78.182, kg, Start date: 10/06/13 9:00:00, Duration: 30 day, Stop date: 11/04/13 17:00:00(S sharron as: Colace) (Do Not Crush) Pulmicort No Galilea 1 Semaj shashi Flexhaler 10-06 Avis Stef inhalation l 15:00: , Route: Vinnie 00 INHALATION , Drug Form: PWDR, Dosing Weight 78.182, kg, BID, Start date: 10/06/13 9:00:00, Duration: 30 day, Stop date: 11/04/13 17:00:00 Fish Oil No Galilea 1,000 mg, Memoria 10-06 Avis Stef 1 cap, l 15:00: Route: PO, Lead Drug form: CAP, Daily, Dosing Weight 78.182, kg, Start date: 10/06/13 9:00:00, Duration: 30 day, Stop date: 11/04/13 9:00:00(Sa ga as: MaxEPA, [place] 3 fish oil ) Non-Formul kinza Drug magnesium No Galilea 200 mg, M emoria oxide 10-06 Avis Stef 0.5 tab, l 15:00: Route: PO, Vinnie Drug form: TAB, BID, Dosing Weight 78.182, kg, Start date: 10/06/13 9:00:00, Duration: 30 day, Stop date: 11/04/13 17:00:00(S sharron as: Mag-Ox 400) Magnesium oxide [id number] g elemental magnesium Dose=____m g magnesium oxide (___mg elemental magnesium) multivitami No Galilea 1 tab, Memoria n 10-06 Avis Stef Route: PO, l 15:00: Drug Form: Vinnie 00 TAB, Dosing Weight 78.182, kg, Daily, Start date: 10/06/13 9:00:00, Duration: 30 day, Stop date: 11/04/13 9:00:00([facility]:Thera) Take with food. liothyronin No Howard 5 Memor ia e 10-06 Fer microgram, l 15:00: Sebastian 1 tab, Vinnie 00 Route: PO, Drug form: TAB, Daily, Dosing Weight 78.182, kg, Start date: 10/06/13 9:00:00, Duration: 30 day, Stop date: 11/04/13 9:00:00([facility] as: Cytomel) isosorbide No Galilea 20 mg, 1 Memoria dinitrate 10-06 Avis Stef tab, l 15:00: Route: PO, Lead Drug form: TAB, TID, Dosing Weight 78.182, [...] 9:00:00, Duration: 30 day, Stop date: 11/04/13 9:00:00([facility] as: Lasix) May cause GI upset. Give with food or milk. hydrALAZINE No Galilea 25 mg, 1 Memoria 25 mg oral 10-06 Avis Stef tab, l tablet 15:00: Route: PO, Salma nn 00 Drug form: TAB, BID, Dosing Weight 78.182, kg, hold for SBP < 110, Start date: 10/06/13 9:00:00, Duration: 30 day, Stop date: 11/04/13 17:00:00(S sharron as: Apresoline ) May interfere w/enteral feedings Take With Food. calcium-vit No Galilea 500 mg, Memoria corona D 500 10-06 Avis Stef Route: l mg-400 intl 15:00: CHEW, Drug Vinnie units oral 00 Form: tablet, CHEWTAB, chewable Dosing Weight 78.182, kg, Daily, Start date: 10/06/13 9:00:00, Duration: 30 day, Stop date: 11/04/13 9:00:00(ca lcium carbonate- vit D 500mg-400u nit chew TAB) Same as: Oscal 500+D cyanocobala No Galilea 1,000 M emoria min 10-06 Avis Stef microgram, l 15:00: 1 tab, Lead 00 Route: PO, Drug form: TAB, Daily, Dosing Weight 78.182, kg, Start date: 10/06/13 9:00:00, Duration: 30 day, Stop date: 11/04/13 9:00:00( me As: Vitamin B-12) Coreg No Julia 6.25 [...] Avis Stef tab, l 15:00: Route: PO, Lead 00 Drug form: TAB, Daily, Dosing Weight 78.182, kg, hold for SBP < 110, Start date: 10/06/13 9:00:00, Duration: 30 day, Stop date: 11/04/13 9:00:00(Sa me as: Norvasc) docusate No Galilea 100 mg, [...] mg oral 15:00: Sebastian Route: PO, He Drug form: CAP, BID, Dosing Weight 78.182, kg, Start date: 10/06/13 9:00:00, Duration: 30 day, Stop date: 11/04/13 17:00:00(S sharron as: Colace) (Do Not Crush) Pulmicort No Galilea 1 Semaj shashi Flexhaler [...] 9:00:00, Duration: 30 day, Stop date: 11/04/13 9:00:00([facility] as: MaxEPA, [place] 3 fish oil ) Non-Formul kinza Drug magnesium No Galilea 200 mg, M emoria oxide 10-06 Avis Stef 0.5 tab, l 15:00: Route: PO, Drug form: TAB, BID, Dosing Weight 78.182, kg, Start date: 10/06/13 9:00:00, Duration: 30 day, Stop date: 11/04/13 17:00:00(S sharron as: Mag-Ox 400) Magnesium oxide 178jy=125v g elemental magnesium Dose=____m g magnesium oxide (___mg elemental magnesium) multivitami No Galilea 1 tab, Memoria n 10-06 Avis Stef Route: PO, l 15:00: Drug Form: Lead 00 TAB, Dosing Weight 78.182, kg, Daily, Start date: 10/06/13 9:00:00, Duration: 30 day, Stop date: 11/04/13 9:00:00(Sa me as:Thera) Take with food. liothyronin 2013- No Howard 5 Memor ia e 10-06 Fer microgram, l 15:00: Sebastian 1 tab, Route: PO, Drug form: TAB, Daily, Dosing Weight 78.182, kg, Start date: 10/06/13 9:00:00, Duration: 30 day, Stop date: 11/04/13 9:00:00(Sa me as: Cytomel) isosorbide No Galilea 20 mg, 1 Memoria dinitrate 10-06 Avis Stef tab, l 15:00: Route: PO, Drug form: TAB, TID, Dosing Weight 78.182, kg, Start date: 10/06/13 9:00:00, Duration: 30 day, Stop date: 11/04/13 17:00:00(S sharron as:Isordil ) Take on empty stomach/ full glass of water Lasix 20 mg No Galilea 20 mg, 1 Memoria oral tablet 10-06 Avis Stef tab, l 15:00: Route: PO, Drug form: TAB, Daily, Dosing Weight 78.182, kg, Start date: 10/06/13 9:00:00, Duration: 30 day, Stop date: 11/04/13 9:00:00([facility] as: Lasix) May cause GI upset. Give with food or milk. hydrALAZINE No Galilea 25 mg, 1 Memoria 25 mg oral 10-06 Avis Stef tab, l tablet 15:00: Route: PO, Drug form: TAB, BID, Dosing Weight 78.182, kg, hold for SBP < 110, Start date: 10/06/13 9:00:00, Duration: 30 day, Stop date: 11/04/13 17:00:00(S sharron as: Apresoline ) May interfere w/enteral feedings Take With Food. calcium-vit No Galilea 500 mg, Memoria corona D 500 10-06 Avis Stef Route: l mg-400 intl 15:00: CHEW, Drug Vinnie units oral 00 Form: tablet, CHEWTAB, chewable Dosing Weight 78.182, kg, Daily, Start date: 10/06/13 9:00:00, Duration: 30 day, Stop date: 11/04/13 9:00:00(ca lcium carbonate- vit D 500mg-400u nit chew TAB) Same as: Oscal 500+D cyanocobala No Galilea 1,000 M emoria min 10-06 Avis Stef microgram, l 15:00: 1 tab, Lead 00 Route: PO, Drug form: TAB, Daily, Dosing Weight 78.182, kg, Start date: 10/06/13 9:00:00, Duration: 30 day, Stop date: 11/04/13 9:00:00( me As: Vitamin B-12) Coreg No Julia 6.25 [...] Avis Stef tab, l 15:00: Route: PO, Lead 00 Drug form: TAB, Daily, Dosing Weight 78.182, kg, hold for SBP < 110, Start date: 10/06/13 9:00:00, Duration: 30 day, Stop date: 11/04/13 9:00:00(Sa me as: Norvasc) docusate No Galilea 100 mg, [...] mg oral 15:00: Sebastian Route: PO, He Drug form: CAP, BID, Dosing Weight 78.182, kg, Start date: 10/06/13 9:00:00, Duration: 30 day, Stop date: 11/04/13 17:00:00(S sharron as: Colace) (Do Not Crush) Pulmicort No Galilea 1 Semaj shashi Flexhaler 10-06 Avis Stef inhalation l 15:00: , Route: Lead 00 INHALATION , Drug Form: PWDR, Dosing Weight 78.182, kg, BID, Start date: 10/06/13 9:00:00, Duration: 30 day, Stop date: 11/04/13 17:00:00 Fish Oil No Galilea 1,000 mg, Memoria 10-06 Avis Stef 1 cap, l 15:00: Route: PO, Vinnie 00 Drug form: CAP, Daily, Dosing Weight 78.182, kg, Start date: 10/06/13 9:00:00, Duration: 30 day, Stop date: 11/04/13 9:00:00([facility] as: MaxEPA, [place] 3 fish oil ) Non-Formul kinza Drug magnesium No Galilea 200 mg, M emoria oxide 10-06 Avis Stef 0.5 tab, l 15:00: Route: PO, Lead 00 Drug form: TAB, BID, Dosing Weight 78.182, kg, Start date: 10/06/13 9:00:00, Duration: 30 day, Stop date: 11/04/13 17:00:00(S sharron as: Mag-Ox 400) Magnesium oxide [id number]=955z g elemental magnesium Dose=____m g magnesium oxide (___mg elemental magnesium) multivitami No Galilea 1 tab, Memoria n 10-06 Avis Stef Route: PO, l 15:00: Drug Form: Vinnie 00 TAB, Dosing Weight 78.182, kg, Daily, Start date: 10/06/13 9:00:00, Duration: 30 day, Stop date: 11/04/13 9:00:00(Sa me as:Thera) Take with food. liothyronin No Howadr 5 Memor ia e 10-06 Fer microgram, l 15:00: Sebastian 1 tab, Lead 00 Route: PO, Drug form: TAB, Daily, Dosing Weight 78.182, kg, Start date: 10/06/13 9:00:00, Duration: 30 day, Stop date: 11/04/13 9:00:00(Sa me as: Cytomel) isosorbide No Galilea 20 mg, 1 Memoria dinitrate 10-06 Avis Stef tab, l 15:00: Route: PO, Drug form: TAB, TID, Dosing Weight 78.182, kg, Start date: 10/06/13 9:00:00, Duration: 30 day, Stop date: 11/04/13 17:00:00(S sharron as:Isordil ) Take on empty stomach/ full glass of water Lasix 20 mg No Galilea 20 mg, 1 Memoria oral tablet 10-06 Avis Stef tab, l 15:00: Route: PO, Drug form: TAB, Daily, Dosing Weight 78.182, kg, Start date: 10/06/13 9:00:00, Duration: 30 day, Stop date: 11/04/13 9:00:00(Sa me as: Lasix) May cause GI upset. Give with food or milk. hydrALAZINE No Galilea 25 mg, 1 Memoria 25 mg oral 10-06 Avis Stef tab, l tablet 15:00: Route: PO, Salma Drug form: TAB, BID, Dosing Weight 78.182, kg, hold for SBP < 110, Start date: 10/06/13 9:00:00, Duration: 30 day, Stop date: 11/04/13 17:00:00(S sharron as: Apresoline ) May interfere w/enteral feedings Take With Food. calcium-vit No Galilea 500 mg, Memoria corona D 500 10-06 Avis Stef Route: l mg-400 intl 15:00: CHEW, Drug Vinnie units oral 00 Form: tablet, CHEWTAB, chewable Dosing Weight 78.182, kg, Daily, Start date: 10/06/13 9:00:00, Duration: 30 day, Stop date: 11/04/13 9:00:00(ca lcium carbonate- vit D 500mg-400u nit chew TAB) Same as: Oscal 500+D cyanocobala No Galilea 1,000 M emoria min 10-06 Avis Stef microgram, l 15:00: 1 tab, Vinnie 00 Route: PO, Drug form: TAB, Daily, Dosing Weight 78.182, kg, Start date: 10/06/13 9:00:00, Duration: 30 day, Stop date: 11/04/13 9:00:00([facility] As: Vitamin B-12) Coreg No Julia 6.25 [...] Avis Stef tab, l 15:00: Route: PO, Lead 00 Drug form: TAB, Daily, Dosing Weight 78.182, kg, hold for SBP < 110, Start date: 10/06/13 9:00:00, Duration: 30 day, Stop date: 11/04/13 9:00:00([facility] as: Norvasc) docusate No Galilea 100 mg, [...] 15:00: Sebastian Route: PO, He rmann capsule Drug form: CAP, BID, Dosing Weight 78.182, kg, Start date: 10/06/13 9:00:00, Duration: 30 day, Stop date: 11/04/13 17:00:00(S sharron as: Colace) (Do Not Crush) Pulmicort No Galilea 1 Semaj shashi Flexhaler 10-06 Avis Stef inhalation l 15:00: , Route: Lead 00 INHALATION , Drug Form: PWDR, Dosing Weight 78.182, kg, BID, Start date: 10/06/13 9:00:00, Duration: 30 day, Stop date: 11/04/13 17:00:00 Fish Oil No Galilea 1,000 mg, Memoria 10-06 Avis Stef 1 cap, l 15:00: Route: PO, Lead 00 Drug form: CAP, Daily, Dosing Weight 78.182, kg, Start date: 10/06/13 9:00:00, Duration: 30 day, Stop date: 11/04/13 9:00:00([facility] as: MaxEPA, [place] 3 fish oil ) Non-Formul kinza Drug magnesium No Galilea 200 mg, M emoria oxide 10-06 Avis Stef 0.5 tab, l 15:00: Route: PO, Lead 00 Drug form: TAB, BID, Dosing Weight 78.182, kg, Start date: 10/06/13 9:00:00, Duration: 30 day, Stop date: 11/04/13 17:00:00(S sharron as: Mag-Ox 400) Magnesium oxide 735vh=789q g elemental magnesium Dose=____m g magnesium oxide (___mg elemental magnesium) multivitami No Galilea 1 tab, Memoria n 10-06 Avis Stef Route: PO, l 15:00: Drug Form: Lead 00 TAB, Dosing Weight 78.182, kg, Daily, Start date: 10/06/13 9:00:00, Duration: 30 day, Stop date: 11/04/13 9:00:00(Sa me as:Thera) Take with food. liothyronin No Howard 5 Memor ia e 10-06 Fer microgram, l 15:00: Sebastian 1 tab, Vinnie 00 Route: PO, Drug form: TAB, Daily, Dosing Weight 78.182, kg, Start date: 10/06/13 9:00:00, Duration: 30 day, Stop date: 11/04/13 9:00:00(Sa me as: Cytomel) isosorbide No Galilea 20 mg, 1 Memoria dinitrate 10-06 Avis Stef tab, l 15:00: Route: PO, Vinnie 00 Drug form: TAB, TID, Dosing Weight 78.182, [...] day, Stop date: 11/04/13 9:00:00(Sa me as: Lasix) May cause GI upset. Give with food or milk. hydrALAZINE No Galilea 25 mg, 1 Memoria 25 mg oral 10-06 Avis Stef tab, l tablet 15:00: Route: PO, Salma nn 00 Drug form: TAB, BID, Dosing Weight 78.182, kg, hold for SBP < 110, Start date: 10/06/13 9:00:00, Duration: 30 day, Stop date: 11/04/13 17:00:00(S sharron as: Apresoline ) May interfere w/enteral feedings Take With Food. calcium-vit No Galilea 500 mg, Memoria corona D 500 10-06 Avis Stef Route: l mg-400 intl 15:00: CHEW, Drug Lead units oral 00 Form: tablet, CHEWTAB, chewable Dosing Weight 78.182, kg, Daily, Start date: 10/06/13 9:00:00, Duration: 30 day, Stop date: 11/04/13 9:00:00(ca lcium carbonate- vit D 500mg-400u nit chew TAB) Same as: Oscal 500+D cyanocobala No Galilea 1,000 M emoria min 10-06 Avis Stef microgram, l 15:00: 1 tab, Lead 00 Route: PO, Drug form: TAB, Daily, Dosing Weight 78.182, kg, Start date: 10/06/13 9:00:00, Duration: 30 day, Stop date: 11/04/13 9:00:00([facility] As: Vitamin B-12) Coreg No Julia 6.25 [...] Avis Stef tab, l 15:00: Route: PO, Lead 00 Drug form: TAB, Daily, Dosing Weight 78.182, kg, hold for SBP < 110, Start date: 10/06/13 9:00:00, Duration: 30 day, Stop date: 11/04/13 9:00:00(Sa me as: Norvasc) docusate No Galilea 100 mg, 1 Memoria 10-06 Avis Stef cap, l 15:00: Route: PO, Vinnie Drug form: CAP, BID, Dosing Weight 78.182, kg, Start date: 10/06/13 9:00:00, Duration: 30 day, Stop date: 11/04/13 17:00:00(S sharron as: Colace) (Do Not Crush) docusate No Howard 100 mg, 1 Mem oria sodium 100 10-06 Fer cap, l mg oral 15:00: Sebastian Route: PO, He rmann capsule Drug form: CAP, BID, Dosing Weight 78.182, kg, Start date: 10/06/13 9:00:00, Duration: 30 day, Stop date: 11/04/13 17:00:00(S sharron as: Colace) (Do Not Crush) Pulmicort No Galilea 1 Semaj shashi Flexhaler 10-06 Avis Stef inhalation l 15:00: , Route: Lead 00 INHALATION , Drug Form: PWDR, Dosing Weight 78.182, kg, BID, Start date: 10/06/13 9:00:00, Duration: 30 day, Stop date: 11/04/13 17:00:00 Fish Oil No Galilea 1,000 mg, Memoria 10-06 Avis Stef 1 cap, l 15:00: Route: PO, Vinnie 00 Drug form: CAP, Daily, Dosing Weight 78.182, kg, Start date: 10/06/13 9:00:00, Duration: 30 day, Stop date: 11/04/13 9:00:00([facility] as: MaxEPA, [place] 3 fish oil ) Non-Formul kinza Drug magnesium No Galilea 200 mg, M emoria oxide 10-06 Avis Stef 0.5 tab, l 15:00: Route: PO, Drug form: TAB, BID, Dosing Weight 78.182, kg, Start date: 10/06/13 9:00:00, Duration: 30 day, Stop date: 11/04/13 17:00:00(S sharron as: Mag-Ox 400) Magnesium oxide 428bo=349q g elemental magnesium Dose=____m g magnesium oxide (___mg elemental magnesium) multivitami No Galilea 1 tab, Memoria n 10-06 Avis Stef Route: PO, l 15:00: Drug Form: Vinnie 00 TAB, Dosing Weight 78.182, kg, Daily, Start date: 10/06/13 9:00:00, Duration: 30 day, Stop date: 11/04/13 9:00:00(Sa me as:Thera) Take with food. liothyronin No Howard 5 Memor ia e 10-06 Fer microgram, l 15:00: Sebastian 1 tab, Route: PO, Drug form: TAB, Daily, Dosing Weight 78.182, kg, Start date: 10/06/13 9:00:00, Duration: 30 day, Stop date: 11/04/13 9:00:00(Sa me as: Cytomel) isosorbide No Galilea 20 mg, 1 Memoria dinitrate 10-06 Avis Stef tab, l 15:00: Route: PO, Drug form: TAB, TID, Dosing Weight 78.182, kg, Start date: 10/06/13 9:00:00, Duration: 30 day, Stop date: 11/04/13 17:00:00(S sharron as:Isordil ) Take on empty stomach/ full glass of water Lasix 20 mg No Galilea 20 mg, 1 Memoria oral tablet 10-06 Avis Stef tab, l 15:00: Route: PO, Lead 00 Drug form: TAB, Daily, Dosing Weight 78.182, kg, Start date: 10/06/13 9:00:00, Duration: 30 day, Stop date: 11/04/13 9:00:00(Sa me as: Lasix) May cause GI upset. Give with food or milk. hydrALAZINE No Galilea 25 mg, 1 Memoria 25 mg oral 10-06 Avis Stef tab, l tablet 15:00: Route: PO, Salma nn 00 Drug form: TAB, BID, Dosing Weight 78.182, kg, hold for SBP < 110, Start date: 10/06/13 9:00:00, Duration: 30 day, Stop date: 11/04/13 17:00:00(S sharron as: Apresoline ) May interfere w/enteral feedings Take With Food. calcium-vit No Galilea 500 mg, Memoria corona D 500 10-06 Avis Stef Route: l mg-400 intl 15:00: CHEW, Drug Lead units oral 00 Form: tablet, CHEWTAB, chewable Dosing Weight 78.182, kg, Daily, Start date: 10/06/13 9:00:00, Duration: 30 day, Stop date: 11/04/13 9:00:00(ca lcium carbonate- vit D 500mg-400u nit chew TAB) Same as: Oscal 500+D cyanocobala No Galilea 1,000 M emoria min 10-06 Avis Stef microgram, l 15:00: 1 tab, Vinnie 00 Route: PO, Drug form: TAB, Daily, Dosing Weight 78.182, kg, Start date: 10/06/13 9:00:00, Duration: 30 day, Stop date: 11/04/13 9:00:00(Sa me As: Vitamin B-12) Coreg No Julia 6.25 [...] day, Stop date: 11/04/13 9:00:00(Sa me as: Norvasc) docusate No Galilea 100 mg, 1 Memoria 10-06 Avis Stef cap, l 15:00: Route: PO, Lead 00 Drug form: CAP, BID, Dosing Weight 78.182, kg, Start date: 10/06/13 9:00:00, Duration: 30 day, Stop date: 11/04/13 17:00:00(S sharron as: Colace) (Do Not Crush) docusate No Howard 100 mg, 1 Mem oria sodium 100 10-06 Fer cap, l mg oral 15:00: Sebastian Route: PO, He rmann capsule Drug form: CAP, BID, Dosing Weight 78.182, kg, Start date: 10/06/13 9:00:00, Duration: 30 day, Stop date: 11/04/13 17:00:00(S sharron as: Colace) (Do Not Crush) Pulmicort No Galilea 1 Semaj shashi Flexhaler 10-06 Avis Stef inhalation l 15:00: , Route: Vinnie 00 INHALATION , Drug Form: PWDR, Dosing Weight 78.182, kg, BID, Start date: 10/06/13 9:00:00, Duration: 30 day, Stop date: 11/04/13 17:00:00 Fish Oil No Galilea 1,000 mg, Memoria 10-06 Avis Stef 1 cap, l 15:00: Route: PO, Vinnie 00 Drug form: CAP, Daily, Dosing Weight 78.182, kg, Start date: 10/06/13 9:00:00, Duration: 30 day, Stop date: 11/04/13 9:00:00(Sa me as: MaxEPA, [place] 3 fish oil ) Non-Formul kinza Drug magnesium No Galilea 200 mg, M emoria oxide 10-06 Avis Stef 0.5 tab, l 15:00: Route: PO, Lead 00 Drug form: TAB, BID, Dosing Weight 78.182, kg, Start date: 10/06/13 9:00:00, Duration: 30 day, Stop date: 11/04/13 17:00:00(S sharron as: Mag-Ox 400) Magnesium oxide 498fs=979u g elemental magnesium Dose=____m g magnesium oxide (___mg elemental magnesium) multivitami No Galilea 1 tab, Memoria n 10-06 Avis Stef Route: PO, l 15:00: Drug Form: Lead TAB, Dosing Weight 78.182, kg, Daily, Start date: 10/06/13 9:00:00, Duration: 30 day, Stop date: 11/04/13 9:00:00(Sa me as:Thera) Take with food. liothyronin No Howard 5 Memor ia e 10-06 Fer microgram, l 15:00: Sebastian 1 tab, Route: PO, Drug form: TAB, Daily, Dosing Weight 78.182, kg, Start date: 10/06/13 9:00:00, Duration: 30 day, Stop date: 11/04/13 9:00:00(Sa me as: Cytomel) isosorbide No Galilea 20 mg, 1 Memoria dinitrate 10-06 Avis Stef tab, l 15:00: Route: PO, Lead 00 Drug form: TAB, TID, Dosing Weight 78.182, kg, Start date: 10/06/13 9:00:00, Duration: 30 day, Stop date: 11/04/13 17:00:00(S sharron as:Isordil ) Take on empty stomach/ full glass of water Lasix 20 mg No Galilea 20 mg, 1 Memoria oral tablet 10-06 Avis Stef tab, l 15:00: Route: PO, Drug form: TAB, Daily, Dosing Weight 78.182, kg, Start date: 10/06/13 9:00:00, Duration: 30 day, Stop date: 11/04/13 9:00:00(Sa me as: Lasix) May cause GI upset. Give with food or milk. hydrALAZINE No Galilea 25 mg, 1 Memoria 25 mg oral 10-06 Avis Stef tab, l tablet 15:00: Route: PO, Salma nn 00 Drug form: TAB, BID, Dosing Weight 78.182, kg, hold for SBP < 110, Start date: 10/06/13 9:00:00, Duration: 30 day, Stop date: 11/04/13 17:00:00(S sharron as: Apresoline ) May interfere w/enteral feedings Take With Food. calcium-vit No Galilea 500 mg, Memoria corona D 500 10-06 Avis Stef Route: l mg-400 intl 15:00: CHEW, Drug Vinnie units oral 00 Form: tablet, CHEWTAB, chewable Dosing Weight 78.182, kg, Daily, Start date: 10/06/13 9:00:00, Duration: 30 day, Stop date: 11/04/13 9:00:00(ca lcium carbonate- vit D 500mg-400u nit chew TAB) Same as: Oscal 500+D cyanocobala No Galilea 1,000 M emoria min 10-06 Avis Stef microgram, l 15:00: 1 tab, Lead 00 Route: PO, Drug form: TAB, Daily, Dosing Weight 78.182, kg, Start date: 10/06/13 9:00:00, Duration: 30 day, Stop date: 11/04/13 9:00:00(Sa me As: Vitamin B-12) Coreg No Julia 6.25 [...] day, Stop date: 11/04/13 9:00:00(Sa me as: Norvasc) docusate No Galilea 100 mg, 1 Memoria 10-06 Avis Stef cap, l 15:00: Route: PO, Lead 00 Drug form: CAP, BID, Dosing Weight 78.182, kg, Start date: 10/06/13 9:00:00, Duration: 30 day, Stop date: 11/04/13 17:00:00(S sharron as: Colace) (Do Not Crush) docusate No Howard 100 mg, 1 Mem oria sodium 100 10-06 Fer cap, l mg oral 15:00: Sebastian Route: PO, He rmann capsule Drug form: CAP, BID, Dosing Weight 78.182, kg, Start date: 10/06/13 9:00:00, Duration: 30 day, Stop date: 11/04/13 17:00:00(S sharron as: Colace) (Do Not Crush) Pulmicort No Galilea 1 Semaj shashi Flexhaler 10-06 Avis Stef inhalation l 15:00: , Route: Lead 00 INHALATION , Drug Form: PWDR, Dosing Weight 78.182, kg, BID, Start date: 10/06/13 9:00:00, Duration: 30 day, Stop date: 11/04/13 17:00:00 Fish Oil No Galilea 1,000 mg, Memoria 10-06 Avis Stef 1 cap, l 15:00: Route: PO, Drug form: CAP, Daily, Dosing Weight 78.182, kg, Start date: 10/06/13 9:00:00, Duration: 30 day, Stop date: 11/04/13 9:00:00(Sa me as: MaxEPA, [place] 3 fish oil ) Non-Formul kinza Drug magnesium No Galilea 200 mg, M emoria oxide 10-06 Avis Stef 0.5 tab, l 15:00: Route: PO, Drug form: TAB, BID, Dosing Weight 78.182, kg, Start date: 10/06/13 9:00:00, Duration: 30 day, Stop date: 11/04/13 17:00:00(S sharron as: Mag-Ox 400) Magnesium oxide 808pg=108l g elemental magnesium Dose=____m g magnesium oxide (___mg elemental magnesium) multivitami No Galilea 1 tab, Memoria n 10-06 Avis Stef Route: PO, l 15:00: Drug Form: TAB, Dosing Weight 78.182, kg, Daily, Start date: 10/06/13 9:00:00, Duration: 30 day, Stop date: 11/04/13 9:00:00(Sa me as:Thera) Take with food. liothyronin No Howard 5 Memor ia e 10-06 Fer microgram, l 15:00: Sebastian 1 tab, Route: PO, Drug form: TAB, Daily, Dosing Weight 78.182, kg, Start date: 10/06/13 9:00:00, Duration: 30 day, Stop date: 11/04/13 9:00:00(Sa me as: Cytomel) isosorbide No Galilea 20 mg, 1 Memoria dinitrate 10-06 Avis Stef tab, l 15:00: Route: PO, Drug form: TAB, TID, Dosing Weight 78.182, kg, Start date: 10/06/13 9:00:00, Duration: 30 day, Stop date: 11/04/13 17:00:00(S sharron as:Isordil ) Take on empty stomach/ full glass of water Lasix 20 mg No Galilea 20 mg, 1 Memoria oral tablet 10-06 Avis Stef tab, l 15:00: Route: PO, Lead 00 Drug form: TAB, Daily, Dosing Weight 78.182, kg, Start date: 10/06/13 9:00:00, Duration: 30 day, Stop date: 11/04/13 9:00:00(Sa me as: Lasix) May cause GI upset. Give with food or milk. hydrALAZINE No Galilea 25 mg, 1 Memoria 25 mg oral 10-06 Avis Stef tab, l tablet 15:00: Route: PO, Salma nn 00 Drug form: TAB, BID, Dosing Weight 78.182, kg, hold for SBP < 110, Start date: 10/06/13 9:00:00, Duration: 30 day, Stop date: 11/04/13 17:00:00(S sharron as: Apresoline ) May interfere w/enteral feedings Take With Food. calcium-vit No Galilea 500 mg, Memoria corona D 500 10-06 Avis Stef Route: l mg-400 intl 15:00: CHEW, Drug Vinnie units oral 00 Form: tablet, CHEWTAB, chewable Dosing Weight 78.182, kg, Daily, Start date: 10/06/13 9:00:00, Duration: 30 day, Stop date: 11/04/13 9:00:00(ca lcium carbonate- vit D 500mg-400u nit chew TAB) Same as: Oscal 500+D cyanocobala No Galilea 1,000 M emoria min 10-06 Avis Stef microgram, l 15:00: 1 tab, Vinnie 00 Route: PO, Drug form: TAB, Daily, Dosing Weight 78.182, kg, Start date: 10/06/13 9:00:00, Duration: 30 day, Stop date: 11/04/13 9:00:00(Sa me As: Vitamin B-12) Coreg No Julia 6.25 [...] Avis Stef tab, l 15:00: Route: PO, Lead 00 Drug form: TAB, Daily, Dosing Weight 78.182, kg, hold for SBP < 110, Start date: 10/06/13 9:00:00, Duration: 30 day, Stop date: 11/04/13 9:00:00(Sa me as: Norvasc) docusate No Galilea 100 mg, [...] 17:00:00(S sharron as: Colace) (Do Not Crush) Pulmicort No Galilea 1 Semaj shashi Flexhaler 10-06 Avis Stef inhalation l 15:00: , Route: Vinnie 00 INHALATION , Drug Form: PWDR, Dosing Weight 78.182, kg, BID, Start date: 10/06/13 9:00:00, Duration: 30 day, Stop date: 11/04/13 17:00:00 Fish Oil No Galilea 1,000 mg, Memoria 10-06 Avis Stef 1 cap, l 15:00: Route: PO, Drug form: CAP, Daily, Dosing Weight 78.182, kg, Start date: 10/06/13 9:00:00, Duration: 30 day, Stop date: 11/04/13 9:00:00(Sa me as: MaxEPA, [place] 3 fish oil ) Non-Formul kinza Drug magnesium No Galilea 200 mg, M emoria oxide 10-06 Avis Stef 0.5 tab, l 15:00: Route: PO, Drug form: TAB, BID, Dosing Weight 78.182, kg, Start date: 10/06/13 9:00:00, Duration: 30 day, Stop date: 11/04/13 17:00:00(S sharron as: Mag-Ox 400) Magnesium oxide 564vj=220d g elemental magnesium Dose=____m g magnesium oxide (___mg elemental magnesium) multivitami No Galilea 1 tab, Memoria n 10-06 Avis Stef Route: PO, l 15:00: Drug Form: 00 TAB, Dosing Weight 78.182, kg, Daily, Start date: 10/06/13 9:00:00, Duration: 30 day, Stop date: 11/04/13 9:00:00([facility] as:Thera) Take with food. liothyronin No Howard 5 Memor ia e 10-06 Fer microgram, l 15:00: Sebastian 1 tab, Route: PO, Drug form: TAB, Daily, Dosing Weight 78.182, kg, Start date: 10/06/13 9:00:00, Duration: 30 day, Stop date: 11/04/13 9:00:00([facility] as: Cytomel) isosorbide No Galilea 20 mg, 1 Memoria dinitrate 10-06 Avis Stef tab, l 15:00: Route: PO, Drug form: TAB, TID, Dosing Weight 78.182, [...] day, Stop date: 11/04/13 9:00:00(Sa me as: Lasix) May cause GI upset. Give with food or milk. hydrALAZINE No Galilea 25 mg, 1 Memoria 25 mg oral 10-06 Avis Tsef tab, l tablet 15:00: Route: PO, Salma nn 00 Drug form: TAB, BID, Dosing Weight 78.182, kg, hold for SBP < 110, Start date: 10/06/13 9:00:00, Duration: 30 day, Stop date: 11/04/13 17:00:00(S sharron as: Apresoline ) May interfere w/enteral feedings Take With Food. calcium-vit No Galilea 500 mg, Memoria corona D 500 10-06 Avis Stef Route: l mg-400 intl 15:00: CHEW, Drug Lead units oral 00 Form: tablet, CHEWTAB, chewable Dosing Weight 78.182, kg, Daily, Start date: 10/06/13 9:00:00, Duration: 30 day, Stop date: 11/04/13 9:00:00(ca lcium carbonate- vit D 500mg-400u nit chew TAB) Same as: Oscal 500+D cyanocobala No Galilea 1,000 M emoria min 10-06 Avis Stef microgram, l 15:00: 1 tab, Vinnie 00 Route: PO, Drug form: TAB, Daily, Dosing Weight 78.182, kg, Start date: 10/06/13 9:00:00, Duration: 30 day, Stop date: 11/04/13 9:00:00(Sa me As: Vitamin B-12) Coreg No Julia 6.25 [...] Avis Stef tab, l 15:00: Route: PO, Lead 00 Drug form: TAB, Daily, Dosing Weight 78.182, kg, hold for SBP < 110, Start date: 10/06/13 9:00:00, Duration: 30 day, Stop date: 11/04/13 9:00:00(Sa me as: Norvasc) docusate No Galilea 100 mg, [...] 17:00:00(S sharron as: Colace) (Do Not Crush) Pulmicort No Galilea 1 Semaj shashi Flexhaler [...] Stop date: 11/04/13 9:00:00(Sa me as: MaxEPA, [place] 3 fish oil ) Non-Formul kinza Drug magnesium No Galilea 200 mg, M emoria oxide 10-06 Avis Stef 0.5 tab, l 15:00: Route: PO, Drug form: TAB, BID, Dosing Weight 78.182, kg, Start date: 10/06/13 9:00:00, Duration: 30 day, Stop date: 11/04/13 17:00:00(S sharron as: Mag-Ox 400) Magnesium oxide 866xs=384g g elemental magnesium Dose=____m g magnesium oxide (___mg elemental magnesium) multivitami No Galilea 1 tab, Memoria n 10-06 Avis Stef Route: PO, l 15:00: Drug Form: TAB, Dosing Weight 78.182, kg, Daily, Start date: 10/06/13 9:00:00, Duration: 30 day, Stop date: 11/04/13 9:00:00(Sa me as:Thera) Take with food. liothyronin No Howard 5 Memor ia e 10-06 Fer microgram, l 15:00: Sebastian 1 tab, Route: PO, Drug form: TAB, Daily, Dosing Weight 78.182, kg, Start date: 10/06/13 9:00:00, Duration: 30 day, Stop date: 11/04/13 9:00:00(Sa me as: Cytomel) isosorbide No Galilea 20 mg, 1 Memoria dinitrate 10-06 Avis Stef tab, l 15:00: Route: PO, Lead 00 Drug form: TAB, TID, Dosing Weight 78.182, [...] day, Stop date: 11/04/13 9:00:00(Sa me as: Lasix) May cause GI upset. Give with food or milk. hydrALAZINE No Galilea 25 mg, 1 Memoria 25 mg oral 10-06 Avis Stef tab, l tablet 15:00: Route: PO, Salma Drug form: TAB, BID, Dosing Weight 78.182, kg, hold for SBP < 110, Start date: 10/06/13 9:00:00, Duration: 30 day, Stop date: 11/04/13 17:00:00(S sharron as: Apresoline ) May interfere w/enteral feedings Take With Food. calcium-vit No Galilea 500 mg, Memoria corona D 500 10-06 Avis Finch Route: l mg-400 intl 15:00: CHEW, Drug Vinnie units oral 00 Form: tablet, CHEWTAB, chewable Dosing Weight 78.182, kg, Daily, Start date: 10/06/13 9:00:00, Duration: 30 day, Stop date: 11/04/13 9:00:00(ca lcium carbonate- vit D 500mg-400u nit chew TAB) Same as: Oscal 500+D cyanocobala No Galilea 1,000 M emoria min 10-06 Avis Stef microgram, l 15:00: 1 tab, Vinnie 00 Route: PO, Drug form: TAB, Daily, Dosing Weight 78.182, kg, Start date: 10/06/13 9:00:00, Duration: 30 day, Stop date: 11/04/13 9:00:00(Sa me As: Vitamin B-12) Coreg No Julia 6.25 [...] Avis Stef tab, l 15:00: Route: PO, Lead 00 Drug form: TAB, Daily, Dosing Weight 78.182, kg, hold for SBP < 110, Start date: 10/06/13 9:00:00, Duration: 30 day, Stop date: 11/04/13 9:00:00( me as: Norvasc) docusate No Galile[place] 100 mg, 1 Memoria 10-06 Avis Stef cap, l 15:00: Route: PO, Lead 00 Drug form: CAP, BID, Dosing Weight [...] 17:00:00(S sharron as: Colace) (Do Not Crush) Pulmicort No Galile[place] 1 Semaj shashi Flexhaler 10-06 Avis Stef inhalation l 15:00: , Route: Lead 00 INHALATION , Drug Form: PWDR, Dosing Weight 78.182, kg, BID, Start date: 10/06/13 9:00:00, Duration: 30 day, Stop date: 11/04/13 17:00:00 Fish Oil No Galilea 1,000 mg, Memoria 10-06 Avis Stef 1 cap, l 15:00: Route: PO, Drug form: CAP, Daily, Dosing Weight 78.182, kg, Start date: 10/06/13 9:00:00, Duration: 30 day, Stop date: 11/04/13 9:00:00(Sa me as: MaxEPA, [place] 3 fish oil ) Non-Formul kinza Drug magnesium No Galilea 200 mg, M emoria oxide 10-06 Avis Stef 0.5 tab, l 15:00: Route: PO, Drug form: TAB, BID, Dosing Weight 78.182, kg, Start date: 10/06/13 9:00:00, Duration: 30 day, Stop date: 11/04/13 17:00:00(S sharron as: Mag-Ox 400) Magnesium oxide 354gb=656g g elemental magnesium Dose=____m g magnesium oxide (___mg elemental magnesium) multivitami No Galile[place] 1 tab, Memoria n 10-06 Avis Stef Route: PO, l 15:00: Drug Form: Lead 00 TAB, Dosing Weight 78.182, kg, Daily, Start date: 10/06/13 9:00:00, Duration: 30 day, Stop date: 11/04/13 9:00:00(Sa me as:Thera) Take with food. liothyronin No [place] 5 Memor ia e 10-06 Fer microgram, l 15:00: Sebastian 1 tab, Route: PO, Drug form: TAB, Daily, Dosing Weight 78.182, kg, Start date: 10/06/13 9:00:00, Duration: 30 day, Stop date: 11/04/13 9:00:00(Sa me as: Cytomel) isosorbide No Galile[place] 20 mg, 1 Memoria dinitrate 10-06 Avis Stef tab, l 15:00: Route: PO, Vinnie 00 Drug form: TAB, TID, Dosing Weight 78.182, kg, Start date: 10/06/13 9:00:00, Duration: 30 day, Stop date: 11/04/13 17:00:00(S sharron as:Isordil ) Take on empty stomach/ full glass of water Lasix 20 mg No Galile[place] 20 mg, 1 Memoria oral tablet 10-06 Avis Stef tab, l 15:00: Route: PO, Lead 00 Drug form: TAB, Daily, Dosing Weight 78.182, kg, Start date: 10/06/13 9:00:00, Duration: 30 day, Stop date: 11/04/13 9:00:00( me as: Lasix) May cause GI upset. Give with food or milk. hydrALAZINE No [place] 25 mg, 1 Memoria 25 mg oral 10-06 Avis Stef tab, l tablet 15:00: Route: PO, Salma nn 00 Drug form: TAB, BID, Dosing Weight 78.182, kg, hold for SBP < 110, Start date: 10/06/13 9:00:00, Duration: 30 day, Stop date: 11/04/13 17:00:00(S sharron as: Apresoline ) May interfere w/enteral feedings Take With Food. calcium-vit No Galile[place] 500 mg, Memoria corona D 500 10-06 Avis Stef Route: l mg-400 intl 15:00: CHEW, Drug Vinnie units oral 00 Form: tablet, CHEWTAB, chewable Dosing Weight 78.182, kg, Daily, Start date: 10/06/13 9:00:00, Duration: 30 day, Stop date: 11/04/13 9:00:00(ca lcium carbonate- vit D 500mg-400u nit chew TAB) Same as: Oscal 500+D cyanocobala 2014-0 No Galile[place] 1,000 M emoria min 10-06 Avis Stef microgram, l 15:00: 1 tab, Vinnie 00 Route: PO, Drug form: TAB, Daily, Dosing Weight 78.182, kg, Start date: 10/06/13 9:00:00, Duration: 30 day, Stop date: 11/04/13 9:00:00(Sa me As: Vitamin B-12) Coreg No Julia 6.25 mg, 1 Mem oria 10-06 Trice tab, l 15:00: Plessner Route: PO, Her jin 00 Drug form: TAB, BID, Dosing Weight 78.182, kg, hold for SBP < 110, Start date: 10/06/13 9:00:00, Stop date: 11/04/13 21:00:00Gi ve with food. (Same As: Coreg) aspirin 81 No Galilea 81 mg, 1 Memoria mg tablet, 10-06 Vais Stef tab, l enteric 15:00: Route: PO, Herm avis coated 00 Drug form: ECTAB, Daily, Dosing Weight 78.182, kg, Start date: 10/06/13 9:00:00, Duration: 30 day, Stop date: 11/04/13 9:00:00Do not crush or chew. (Same As: Ecotrin) Norvasc No Galilea 5 mg, 1 Mem oria 10-06 Avis Stef tab, l 15:00: Route: PO, Lead 00 Drug form: TAB, Daily, Dosing Weight 78.182, kg, hold for SBP < 110, Start date: 10/06/13 9:00:00, Duration: 30 day, Stop date: 11/04/13 9:00:00(Sa me as: Norvasc) docusate No Galile[place] 100 mg, 1 Memoria 10-06 Avis Stef cap, l 15:00: Route: PO, Lead 00 Drug form: CAP, BID, Dosing Weight 78.182, kg, Start date: 10/06/13 9:00:00, Duration: 30 day, Stop date: 11/04/13 17:00:00(S sharron as: Colace) (Do Not Crush) docusate No Howard 100 mg, 1 Mem oria sodium 100 10-06 Fer cap, l mg oral 15:00: Sebastian Route: PO, He rm capsule Drug form: CAP, BID, Dosing Weight 78.182, kg, Start date: 10/06/13 9:00:00, Duration: 30 day, Stop date: 11/04/13 17:00:00(S sharron as: Colace) (Do Not Crush) Pulmicort No Galile[place] 1 Semaj shashi Flexhaler 10-06 Avis Stef inhalation l 15:00: , Route: Vinnie 00 INHALATION , Drug Form: PWDR, Dosing Weight 78.182, kg, BID, Start date: 10/06/13 9:00:00, Duration: 30 day, Stop date: 11/04/13 17:00:00 Fish Oil No Galilea 1,000 mg, Memoria 10-06 Avis Stef 1 cap, l 15:00: Route: PO, Vinnie Drug form: CAP, Daily, Dosing Weight 78.182, kg, Start date: 10/06/13 9:00:00, Duration: 30 day, Stop date: 11/04/13 9:00:00(Sa me as: MaxEPA, [place] 3 fish oil ) Non-Formul kinza Drug magnesium No Galilea 200 mg, M emoria oxide 10-06 Avis Stef 0.5 tab, l 15:00: Route: PO, Vinnie 00 Drug form: TAB, BID, Dosing Weight 78.182, kg, Start date: 10/06/13 9:00:00, Duration: 30 day, Stop date: 11/04/13 17:00:00(S sharron as: Mag-Ox 400) Magnesium oxide 455ca=291n g elemental magnesium Dose=____m g magnesium oxide (___mg elemental magnesium) multivitami No Galile[place] 1 tab, Memoria n 10-06 Avis Stef Route: PO, l 15:00: Drug Form: Lead 00 TAB, Dosing Weight 78.182, kg, Daily, Start date: 10/06/13 9:00:00, Duration: 30 day, Stop date: 11/04/13 9:00:00(Sa me as:Thera) Take with food. liothyronin No [place] 5 Memor ia e 10-06 Fer microgram, l 15:00: Sebastian 1 tab, Route: PO, Drug form: TAB, Daily, Dosing Weight 78.182, kg, Start date: 10/06/13 9:00:00, Duration: 30 day, Stop date: 11/04/13 9:00:00( me as: Cytomel) Pulmicort No Galilea 1 Semaj shashi Flexhaler [...] 9:00:00, Duration: 30 day, Stop date: 11/04/13 9:00:00([facility] as: MaxEPA, [place] 3 fish oil ) Non-Formul kinza Drug magnesium No Galilea 200 mg, M emoria oxide 10-06 Avis Stef 0.5 tab, l 15:00: Route: PO, Drug form: TAB, BID, Dosing Weight 78.182, kg, Start date: 10/06/13 9:00:00, Duration: 30 day, Stop date: 11/04/13 17:00:00(S sharron as: Mag-Ox 400) Magnesium oxide 365it=978g g elemental magnesium Dose=____m g magnesium oxide (___mg elemental magnesium) multivitami No Galilea 1 tab, Memoria n 10-06 Avis Stef Route: PO, l 15:00: Drug Form: Vinnie TAB, Dosing Weight 78.182, kg, Daily, Start date: 10/06/13 9:00:00, Duration: 30 day, Stop date: 11/04/13 9:00:00([facility] as:Thera) Take with food. liothyronin No Howard 5 Memor ia e 10-06 Fer microgram, l 15:00: Sebastian 1 tab, Vinnie 00 Route: PO, Drug form: TAB, Daily, Dosing Weight 78.182, kg, Start date: 10/06/13 9:00:00, Duration: 30 day, Stop date: 11/04/13 9:00:00(Sa me as: Cytomel) isosorbide No Galilea 20 mg, 1 Memoria dinitrate 10-06 Avis Stef tab, l 15:00: Route: PO, Vinnie 00 Drug form: TAB, TID, Dosing Weight 78.182, kg, Start date: 10/06/13 9:00:00, Duration: 30 day, Stop date: 11/04/13 17:00:00(S sharron as:Isordil ) Take on empty stomach/ full glass of water Lasix 20 mg No Galliea 20 mg, 1 Memoria oral tablet 10-06 Avis Stef tab, l 15:00: Route: PO, Lead 00 Drug form: TAB, Daily, Dosing Weight 78.182, kg, Start date: 10/06/13 9:00:00, Duration: 30 day, Stop date: 11/04/13 9:00:00(Sa me as: Lasix) May cause GI upset. Give with food or milk. hydrALAZINE No Galilea 25 mg, 1 Memoria 25 mg oral 10-06 Avis Stef tab, l tablet 15:00: Route: PO, Salma nn 00 Drug form: TAB, BID, Dosing Weight 78.182, kg, hold for SBP < 110, Start date: 10/06/13 9:00:00, Duration: 30 day, Stop date: 11/04/13 17:00:00(S sharron as: Apresoline ) May interfere w/enteral feedings Take With Food. calcium-vit No Galilea 500 mg, Memoria corona D 500 10-06 Avis Stef Route: l mg-400 intl 15:00: CHEW, Drug Lead units oral 00 Form: tablet, CHEWTAB, chewable Dosing Weight 78.182, kg, Daily, Start date: 10/06/13 9:00:00, Duration: 30 day, Stop date: 11/04/13 9:00:00(ca lcium carbonate- vit D 500mg-400u nit chew TAB) Same as: Oscal 500+D cyanocobala No Galilea 1,000 M emoria min 10-06 Avis Stef microgram, l 15:00: 1 tab, Lead 00 Route: PO, Drug form: TAB, Daily, Dosing Weight 78.182, kg, Start date: 10/06/13 9:00:00, Duration: 30 day, Stop date: 11/04/13 9:00:00([facility] As: Vitamin B-12) Coreg No Julia 6.25 mg, 1 Mem oria 10-06 Trice tab, l 15:00: Plessner Route: PO, Her jin Drug form: TAB, BID, Dosing Weight 78.182, [...] Avis Stef tab, l 15:00: Route: PO, Lead 00 Drug form: TAB, Daily, Dosing Weight 78.182, kg, hold for SBP < 110, Start date: 10/06/13 9:00:00, Duration: 30 day, Stop date: 11/04/13 9:00:00([facility] as: Norvasc) docusate No Galilea 100 mg, 1 Memoria 10-06 Avis Stef cap, l 15:00: Route: PO, Lead 00 Drug form: CAP, BID, Dosing Weight [...] l 14:00: Sebastian IVPB, Drug Salma nn 00 form: PDR/INJ, [id number], Dosing Weight 78.182, kg, Start date: 10/06/13 8:00:00, Duration: 30 day, Stop date: 11/04/13 8:00:00(Sa me As: Rocephin). Use with 100ml NS mini-bag PLUS and infuse over 30 min Rocephin No Howard 1 gm, Memoria 10-06 Fer Route: l 14:00: Sebastian IVPB, Drug Salma nn 00 form: PDR/INJ, [id number], Dosing Weight 78.182, kg, Start date: 10/06/13 8:00:00, Duration: 30 day, Stop date: 11/04/13 8:00:00(Sa me As: Rocephin). Use with 100ml NS mini-bag PLUS and infuse over 30 min Rocephin No Howard 1 gm, Memoria 10-06 Fer Route: l 14:00: Sebastian IVPB, Drug Salma nn 00 form: PDR/INJ, [id number], Dosing Weight 78.182, kg, Start date: 10/06/13 8:00:00, Duration: 30 day, Stop date: 11/04/13 8:00:00(Sa me As: Rocephin). Use with 100ml NS mini-bag PLUS and infuse over 30 min Rocephin No Howard 1 gm, Memoria 10-06 Fer Route: l 14:00: Sebastian IVPB, Drug Salma nn 00 form: PDR/INJ, [id number], Dosing Weight 78.182, kg, Start date: 10/06/13 8:00:00, Duration: 30 day, Stop date: 11/04/13 8:00:00( me As: Rocephin). Use with 100ml NS mini-bag PLUS and infuse over 30 min Rocephin No Howard 1 gm, Memoria 10-06 Fer Route: l 14:00: Sebastian IVPB, Drug Salma nn form: PDR/INJ, [id number], Dosing Weight 78.182, kg, Start date: 10/06/13 8:00:00, Duration: 30 day, Stop date: 11/04/13 8:00:00([facility] As: Rocephin). Use with 100ml NS mini-bag PLUS and infuse over 30 min Rocephin No Howard 1 gm, Memoria 10-06 Fer Route: l 14:00: Sebastian IVPB, Drug Salma nn form: PDR/INJ, [id number], Dosing Weight 78.182, kg, Start date: 10/06/13 8:00:00, Duration: 30 day, Stop date: 11/04/13 8:00:00([facility] As: Rocephin). Use with 100ml NS mini-bag PLUS and infuse over 30 min Rocephin No Howard 1 gm, Memoria 10-06 Fer Route: l 14:00: Sebastian IVPB, Drug Salma nn form: PDR/INJ, [id number], Dosing Weight 78.182, kg, Start date: 10/06/13 8:00:00, Duration: 30 day, Stop date: 11/04/13 8:00:00( me As: Rocephin). Use with 100ml NS mini-bag PLUS and infuse over 30 min Rocephin No Howard 1 gm, Memoria 10-06 Fer Route: l 14:00: Sebastian IVPB, Drug Salma nn 00 form: PDR/INJ, [id number], Dosing Weight 78.182, kg, Start date: 10/06/13 8:00:00, Duration: 30 day, Stop date: 11/04/13 8:00:00(Sa me As: Rocephin). Use with 100ml NS mini-bag PLUS and infuse over 30 min Rocephin No Howard 1 gm, Memoria 10-06 Fer Route: l 14:00: Sebastian IVPB, Drug Slama nn 00 form: PDR/INJ, [id number], Dosing Weight 78.182, kg, Start date: 10/06/13 8:00:00, Duration: 30 day, Stop date: 11/04/13 8:00:00(Sa me As: Rocephin). Use with 100ml NS mini-bag PLUS and infuse over 30 min Rocephin No Howard 1 gm, Memoria 10-06 Fer Route: l 14:00: Sebastian IVPB, Drug Salma nn 00 form: PDR/INJ, [id number], Dosing Weight 78.182, kg, Start date: 10/06/13 8:00:00, Duration: 30 day, Stop date: 11/04/13 8:00:00( me As: Rocephin). Use with 100ml NS mini-bag PLUS and infuse over 30 min Rocephin No [place] 1 gm, Memoria 10-06 Fer Route: l 14:00: Sebastian IVPB, Drug Salma nn 00 form: PDR/INJ, [id number], Dosing Weight 78.182, kg, Start date: 10/06/13 8:00:00, Duration: 30 day, Stop date: 11/04/13 8:00:00( me As: Rocephin). Use with 100ml NS mini-bag PLUS and infuse over 30 min Rocephin No Howard 1 gm, Memoria 10-06 Fer Route: l 14:00: Sebastian IVPB, Drug Salma nn 00 form: PDR/INJ, [id number], Dosing Weight 78.182, kg, Start date: 10/06/13 8:00:00, Duration: 30 day, Stop date: 11/04/13 8:00:00(Sa me As: Rocephin). Use with 100ml NS mini-bag PLUS and infuse over 30 min Rocephin No Howard 1 gm, Memoria 10-06 Fer Route: l 14:00: Sebastian IVPB, Drug Salma nn 00 form: PDR/INJ, [id number], Dosing Weight 78.182, kg, Start date: 10/06/13 8:00:00, Duration: 30 day, Stop date: 11/04/13 8:00:00([facility] As: Rocephin). Use with 100ml NS mini-bag PLUS and infuse over 30 min Rocephin No Howard 1 gm, Memoria 10-06 Fer Route: l 14:00: Sebastian IVPB, Drug Salma nn 00 form: PDR/INJ, [id number], Dosing Weight 78.182, kg, Start date: 10/06/13 8:00:00, Duration: 30 day, Stop date: 11/04/13 8:00:00([facility] As: Rocephin). Use with 100ml NS mini-bag PLUS and infuse over 30 min Rocephin No Howard 1 gm, 10-06 Fer Route: l 14:00: Sebastian IVPB, Drug Salma nn 00 form: PDR/INJ, [id number], Dosing Weight 78.182, kg, Start date: 10/06/13 8:00:00, Duration: 30 day, Stop date: 11/04/13 8:00:00([facility] As: Rocephin). Use with 100ml NS mini-bag PLUS and infuse over 30 min Rocephin No Howard 1 gm, Memoria 10-06 Fer Route: l 14:00: Sebastian IVPB, Drug Salma nn 00 form: PDR/INJ, [id number], Dosing Weight 78.182, kg, Start date: 10/06/13 8:00:00, Duration: 30 day, Stop date: 11/04/13 8:00:00([facility] As: Rocephin). Use with 100ml NS mini-bag PLUS and infuse over 30 min Rocephin No Howard 1 gm, Memoria 10-06 Fer Route: l 14:00: Sebastian IVPB, Drug Salma nn 00 form: PDR/INJ, [id number], Dosing Weight 78.182, kg, Start date: 10/06/13 8:00:00, Duration: 30 day, Stop date: 11/04/13 8:00:00(Sa me As: Rocephin). Use with 100ml NS mini-bag PLUS and infuse over 30 min Rocephin No Howard 1 gm, Memoria 10-06 Fer Route: l 14:00: Sebastian IVPB, Drug Salma nn 00 form: PDR/INJ, [id number], Dosing Weight 78.182, kg, Start date: 10/06/13 8:00:00, Duration: 30 day, Stop date: 11/04/13 8:00:00(Sa me As: Rocephin). Use with 100ml NS mini-bag PLUS and infuse over 30 min Rocephin No Howard 1 gm, Memoria 10-06 Fer Route: l 14:00: Sebastian IVPB, Drug Salma nn 00 form: PDR/INJ, [id number], Dosing Weight 78.182, kg, Start date: 10/06/13 8:00:00, Duration: 30 day, Stop date: 11/04/13 8:00:00(Sa me As: Rocephin). Use with 100ml NS mini-bag PLUS and infuse over 30 min Rocephin No Howard 1 gm, Memoria 10-06 Fer Route: l 14:00: Sebastian IVPB, Drug Salma nn 00 form: PDR/INJ, [id number], Dosing Weight 78.182, kg, Start date: 10/06/13 8:00:00, Duration: 30 day, Stop date: 11/04/13 8:00:00(Sa me As: Rocephin). Use with 100ml NS mini-bag PLUS and infuse over 30 min Rocephin No Howard 1 gm, Memoria 10-06 Fer Route: l 14:00: Sebastian IVPB, Drug Salma nn 00 form: PDR/INJ, [id number], Dosing Weight 78.182, kg, Start date: 10/06/13 8:00:00, Duration: 30 day, Stop date: 11/04/13 8:00:00(Sa me As: Rocephin). Use with 100ml NS mini-bag PLUS and infuse over 30 min Rocephin No Howard 1 gm, Memoria 10-06 Fer Route: l 14:00: Sebastian IVPB, Drug Salma nn 00 form: PDR/INJ, [id number], Dosing Weight 78.182, kg, Start date: 10/06/13 8:00:00, Duration: 30 day, Stop date: 11/04/13 8:00:00(Sa me As: Rocephin). Use with 100ml NS mini-bag PLUS and infuse over 30 min Rocephin No Howard 1 gm, Memoria 10-06 Fer Route: l 14:00: Sebastian IVPB, Drug Salma nn 00 form: PDR/INJ, [id number], Dosing Weight 78.182, kg, Start date: 10/06/13 8:00:00, Duration: 30 day, Stop date: 11/04/13 8:00:00( me As: Rocephin). Use with 100ml NS mini-bag PLUS and infuse over 30 min Rocephin No Howard 1 gm, oria 10-06 Fer Route: l 14:00: Sebastian IVPB, Drug Salma nn 00 form: PDR/INJ, [id number], Dosing Weight 78.182, kg, Start date: 10/06/13 8:00:00, Duration: 30 day, Stop date: 11/04/13 8:00:00(Sa me As: Rocephin). Use with 100ml NS mini-bag PLUS and infuse over 30 min Rocephin No Howard 1 gm, Memoria 10-06 Fer Route: l 14:00: Sebastian IVPB, Drug Salma nn 00 form: PDR/INJ, [id number], Dosing Weight 78.182, kg, Start date: 10/06/13 8:00:00, Duration: 30 day, Stop date: 11/04/13 8:00:00(Sa me As: Rocephin). Use with 100ml NS mini-bag PLUS and infuse over 30 min Rocephin No Howard 1 gm, Memoria 10-06 Fer Route: l 14:00: Sebastian IVPB, Drug Salma nn 00 form: PDR/INJ, [id number], Dosing Weight 78.182, kg, Start date: 10/06/13 8:00:00, Duration: 30 day, Stop date: 11/04/13 8:00:00([facility] As: Rocephin). Use with 100ml NS mini-bag PLUS and infuse over 30 min Rocephin 2013- No Howard 1 gm, Memoria 10-06 Fer Route: l 14:00: Sebastian IVPB, Drug Salma nn form: PDR/INJ, [id number], Dosing Weight 78.182, kg, Start date: 10/06/13 8:00:00, Duration: 30 day, Stop date: 11/04/13 8:00:00([facility] As: Rocephin). Use with 100ml NS mini-bag PLUS and infuse over 30 min fentanyl No [place] 50 Memor ia 1-22 [place] microgram, l 13:47: Ilochonwu 1 mL, Lead 00 Route: IV, Drug form: INJ, ONCE, Dosing Weight 78.182, kg, Start date: 10/06/13 7:47:00, Stop date: 10/06/13 7:47:00, Pediatric Dosing; For procedure; > 50 kg 50 kg(Same as: Sublimaze) Preservati ve free. fentanyl No Deven 50 Memor ia - [place] microgram, l 13:47: Ilochonwu 1 mL, Lead 00 Route: IV, Drug form: INJ, ONCE, Dosing Weight 78.182, kg, Start date: 10/06/13 7:47:00, Stop date: 10/06/13 7:47:00, Pediatric Dosing; For procedure; > 50 kg 50 kg(Same as: Sublimaze) Preservati ve free. fentanyl No [place] 50 Memor ia 1-22 [place] microgram, l 13:47: Ilochonwu 1 mL, Vinnie 00 Route: IV, Drug form: INJ, ONCE, Dosing Weight 78.182, kg, Start date: 10/06/13 7:47:00, Stop date: 10/06/13 7:47:00, Pediatric Dosing; For procedure; > 50 kg 50 kg(Same as: Sublimaze) Preservati ve free. fentanyl No Deven 50 Memor ia 1-22 [place] microgram, l 13:47: Ilochonwu 1 mL, Lead 00 Route: IV, Drug form: INJ, ONCE, Dosing Weight 78.182, kg, Start date: 10/06/13 7:47:00, Stop date: 10/06/13 7:47:00, Pediatric Dosing; For procedure; > 50 kg 50 kg(Same as: Sublimaze) Preservati ve free. fentanyl No [place] 50 Memor ia 1-22 [place] microgram, l 13:47: Ilochonwu 1 mL, Vinnie 00 Route: IV, Drug form: INJ, ONCE, Dosing Weight 78.182, kg, Start date: 10/06/13 7:47:00, Stop date: 10/06/13 7:47:00, Pediatric Dosing; For procedure; > 50 kg 50 kg(Same as: Sublimaze) Preservati ve free. fentanyl No [place] 50 Memor ia 1-22 [place] microgram, l 13:47: Ilochonwu 1 mL, Lead 00 Route: IV, Drug form: INJ, ONCE, Dosing Weight 78.182, kg, Start date: 10/06/13 7:47:00, Stop date: 10/06/13 7:47:00, Pediatric Dosing; For procedure; > 50 kg 50 kg(Same as: Sublimaze) Preservati ve free. fentanyl No [place] 50 Memor ia 1-22 [place] microgram, l 13:47: Ilochonwu 1 mL, Lead 00 Route: IV, Drug form: INJ, ONCE, Dosing Weight 78.182, kg, Start date: 10/06/13 7:47:00, Stop date: 10/06/13 7:47:00, Pediatric Dosing; For procedure; > 50 kg 50 kg(Same as: Sublimaze) Preservati ve free. fentanyl No [place] 50 Memor ia 1-22 [place] microgram, l 13:47: Ilochonwu 1 mL, Lead 00 Route: IV, Drug form: INJ, ONCE, Dosing Weight 78.182, kg, Start date: 10/06/13 7:47:00, Stop date: 10/06/13 7:47:00, Pediatric Dosing; For procedure; > 50 kg 50 kg(Same as: Sublimaze) Preservati ve free. fentanyl 2013-0 No Deven 50 Memor ia 1-22 [place] microgram, l 13:47: Ilochonwu 1 mL, Lead 00 Route: IV, Drug form: INJ, ONCE, Dosing Weight 78.182, kg, Start date: 10/06/13 7:47:00, Stop date: 10/06/13 7:47:00, Pediatric Dosing; For procedure; > 50 kg 50 kg(Same as: Sublimaze) Preservati ve free. fentanyl 2013- No [place] 50 Memor ia 1-22 [place] microgram, l 13:47: Ilochonwu 1 mL, Lead 00 Route: IV, Drug form: INJ, ONCE, Dosing Weight 78.182, kg, Start date: 10/06/13 7:47:00, Stop date: 10/06/13 7:47:00, Pediatric Dosing; For procedure; > 50 kg 50 kg(Same as: Sublimaze) Preservati ve free. fentanyl 2013-0 No [place] 50 Memor ia 1-22 [place] microgram, l 13:47: Ilochonwu 1 mL, Lead 00 Route: IV, Drug form: INJ, ONCE, Dosing Weight 78.182, kg, Start date: 10/06/13 7:47:00, Stop date: 10/06/13 7:47:00, Pediatric Dosing; For procedure; > 50 kg 50 kg(Same as: Sublimaze) Preservati ve free. fentanyl 2013-0 No Deven 50 Memor ia 1-22 [place] microgram, l 13:47: Ilochonwu 1 mL, Vinnie 00 Route: IV, Drug form: INJ, ONCE, Dosing Weight 78.182, kg, Start date: 10/06/13 7:47:00, Stop date: 10/06/13 7:47:00, Pediatric Dosing; For procedure; > 50 kg 50 kg(Same as: Sublimaze) Preservati ve free. fentanyl No [place] 50 Memor ia 1-22 [place] microgram, l 13:47: Ilochonwu 1 mL, Vinnie 00 Route: IV, Drug form: INJ, ONCE, Dosing Weight 78.182, kg, Start date: 10/06/13 7:47:00, Stop date: 10/06/13 7:47:00, Pediatric Dosing; For procedure; > 50 kg 50 kg(Same as: Sublimaze) Preservati ve free. fentanyl No [place] 50 Memor ia 1-22 [place] microgram, l 13:47: Ilochonwu 1 mL, Lead 00 Route: IV, Drug form: INJ, ONCE, Dosing Weight 78.182, kg, Start date: 10/06/13 7:47:00, Stop date: 10/06/13 7:47:00, Pediatric Dosing; For procedure; > 50 kg 50 kg(Same as: Sublimaze) Preservati ve free. fentanyl No [place] 50 Memor ia 1-22 [place] microgram, l 13:47: Ilochonwu 1 mL, Vinnie 00 Route: IV, Drug form: INJ, ONCE, Dosing Weight 78.182, kg, Start date: 10/06/13 7:47:00, Stop date: 10/06/13 7:47:00, Pediatric Dosing; For procedure; > 50 kg 50 kg(Same as: Sublimaze) Preservati ve free. fentanyl No [place] 50 Memor ia 1-22 [place] microgram, l 13:47: Ilochonwu 1 mL, Lead 00 Route: IV, Drug form: INJ, ONCE, Dosing Weight 78.182, kg, Start date: 10/06/13 7:47:00, Stop date: 10/06/13 7:47:00, Pediatric Dosing; For procedure; > 50 kg 50 kg(Same as: Sublimaze) Preservati ve free. fentanyl No [place] 50 Memor ia 1-22 [place] microgram, l 13:47: Ilochonwu 1 mL, Lead 00 Route: IV, Drug form: INJ, ONCE, Dosing Weight 78.182, kg, Start date: 10/06/13 7:47:00, Stop date: 10/06/13 7:47:00, Pediatric Dosing; For procedure; > 50 kg 50 kg(Same as: Sublimaze) Preservati ve free. fentanyl No [place] 50 Memor ia 1-22 [place] microgram, l 13:47: Ilochonwu 1 mL, Lead 00 Route: IV, Drug form: INJ, ONCE, Dosing Weight 78.182, kg, Start date: 10/06/13 7:47:00, Stop date: 10/06/13 7:47:00, Pediatric Dosing; For procedure; > 50 kg 50 kg(Same as: Sublimaze) Preservati ve free. fentanyl No [place] 50 Memor ia 1-22 [place] microgram, l 13:47: Ilochonwu 1 mL, Vinnie 00 Route: IV, Drug form: INJ, ONCE, Dosing Weight 78.182, kg, Start date: 10/06/13 7:47:00, Stop date: 10/06/13 7:47:00, Pediatric Dosing; For procedure; > 50 kg 50 kg(Same as: Sublimaze) Preservati ve free. fentanyl No [place] 50 Memor ia 1-22 [place] microgram, l 13:47: Ilochonwu 1 mL, Vinnie 00 Route: IV, Drug form: INJ, ONCE, Dosing Weight 78.182, kg, Start date: 10/06/13 7:47:00, Stop date: 10/06/13 7:47:00, Pediatric Dosing; For procedure; > 50 kg 50 kg(Same as: Sublimaze) Preservati ve free. fentanyl No [place] 50 Memor ia 1-22 [place] microgram, l 13:47: Ilochonwu 1 mL, Lead 00 Route: IV, Drug form: INJ, ONCE, Dosing Weight 78.182, kg, Start date: 10/06/13 7:47:00, Stop date: 10/06/13 7:47:00, Pediatric Dosing; For procedure; > 50 kg 50 kg(Same as: Sublimaze) Preservati ve free. fentanyl 2014-0 No [place] 50 Memor ia 1-22 [place] microgram, l 13:47: Ilochonwu 1 mL, Lead 00 Route: IV, Drug form: INJ, ONCE, Dosing Weight 78.182, kg, Start date: 10/06/13 7:47:00, Stop date: 10/06/13 7:47:00, Pediatric Dosing; For procedure; > 50 kg 50 kg(Same as: Sublimaze) Preservati ve free. fentanyl No [place] 50 Memor ia 1-22 [place] microgram, l 13:47: Ilochonwu 1 mL, Lead 00 Route: IV, Drug form: INJ, ONCE, Dosing Weight 78.182, kg, Start date: 10/06/13 7:47:00, Stop date: 10/06/13 7:47:00, Pediatric Dosing; For procedure; > 50 kg 50 kg(Same as: Sublimaze) Preservati ve free. fentanyl No [place] 50 Memor ia 1-22 [place] microgram, l 13:47: Ilochonwu 1 mL, Vinnie 00 Route: IV, Drug form: INJ, ONCE, Dosing Weight 78.182, kg, Start date: 10/06/13 7:47:00, Stop date: 10/06/13 7:47:00, Pediatric Dosing; For procedure; > 50 kg 50 kg(Same as: Sublimaze) Preservati ve free. fentanyl No [place] 50 Memor ia 1-22 [place] microgram, l 13:47: Ilochonwu 1 mL, Vinnie 00 Route: IV, Drug form: INJ, ONCE, Dosing Weight 78.182, kg, Start date: 10/06/13 7:47:00, Stop date: 10/06/13 7:47:00, Pediatric Dosing; For procedure; > 50 kg 50 kg(Same as: Sublimaze) Preservati ve free. fentanyl No [place] 50 Memor ia 1-22 [place] microgram, l 13:47: Ilochonwu 1 mL, Lead 00 Route: IV, Drug form: INJ, ONCE, Dosing Weight 78.182, kg, Start date: 10/06/13 7:47:00, Stop date: 10/06/13 7:47:00, Pediatric Dosing; For procedure; > 50 kg 50 kg(Same as: Sublimaze) Preservati ve free. fentanyl 2013- No [place] 50 Memor ia - [place] microgram, l 13:47: Ilochonwu 1 mL, Vinnie 00 Route: IV, Drug form: INJ, ONCE, Dosing Weight 78.182, kg, Start date: 10/06/13 7:47:00, Stop date: 10/06/13 7:47:00, Pediatric Dosing; For procedure; > 50 kg 50 kg(Same as: Sublimaze) Preservati ve free. levothyroxi No [place] 75 Me to[place] ne - A[place] Stef microgram, l 12:30: 1 tab, Lead 00 Route: PO, Drug form: TAB, Q630AM, Dosing Weight 78.182, kg, Start date: 10/06/13 6:30:00, Duration: 30 day, Stop date: 11/04/13 6:30:00Tak e 1 hour before or 2 hours after meal; Enteral feeds may interefere with the absorption of this medication . (Same as:Synthro id, Levothroid ) levothyroxi No [place] 75 Me tos[place] ne - [place] [employer] microgram, l 12:30: 1 tab, Lead 00 Route: PO, Drug form: TAB, Q630AM, Dosing Weight 78.182, kg, Start date: 10/06/13 6:30:00, Duration: 30 day, Stop date: 11/04/13 6:30:00Tak e 1 hour before or 2 hours after meal; Enteral feeds may interefere with the absorption of this medication . (Same as:Synthro id, Levothroid ) levothyroxi No [place] 75 Me tos[place] ne -22 [place] microgram, l 12:30: 1 tab, Vinnie 00 Route: PO, Drug form: TAB, Q630AM, Dosing Weight 78.182, kg, Start date: 10/06/13 6:30:00, Duration: 30 day, Stop date: 11/04/13 6:30:00Tak e 1 hour before or 2 hours after meal; Enteral feeds may interefere with the absorption of this medication . (Same as:Synthro id, Levothroid ) levothyroxi 2013-0 No [place] 75 Me moria ne 1-22 [place] microgram, l 12:30: 1 tab, Lead 00 Route: PO, Drug form: TAB, Q630AM, Dosing Weight 78.182, kg, Start date: 10/06/13 6:30:00, Duration: 30 day, Stop date: 11/04/13 6:30:00Tak e 1 hour before or 2 hours after meal; Enteral feeds may interefere with the absorption of this medication . (Same as:Synthro id, Levothroid ) levothyroxi No [place] 75 Me moria ne - [place] [employer] microgram, l 12:30: 1 tab, Vinnie 00 Route: PO, Drug form: TAB, Q630AM, Dosing Weight 78.182, kg, Start date: 10/06/13 6:30:00, Duration: 30 day, Stop date: 11/04/13 6:30:00Tak e 1 hour before or 2 hours after meal; Enteral feeds may interefere with the absorption of this medication . (Same as:Synthro id, Levothroid ) levothyroxi No [place] 75 Me moria ne - [employer] [employer] microgram, l 12:30: 1 tab, Vinnie 00 Route: PO, Drug form: TAB, Q630AM, Dosing Weight 78.182, kg, Start date: 10/06/13 6:30:00, Duration: 30 day, Stop date: 11/04/13 6:30:00Tak e 1 hour before or 2 hours after meal; Enteral feeds may interefere with the absorption of this medication . (Same as:Synthro id, Levothroid ) levothyroxi No [place] 75 Me moria ne -22 [place] [employer] microgram, l 12:30: 1 tab, Vinnie 00 Route: PO, Drug form: TAB, Q630AM, Dosing Weight 78.182, kg, Start date: 10/06/13 6:30:00, Duration: 30 day, Stop date: 11/04/13 6:30:00Tak e 1 hour before or 2 hours after meal; Enteral feeds may interefere with the absorption of this medication . (Same as:Synthro id, Levothroid ) levothyroxi 2013-0 No [place] 75 Me moria ne 1-22 [place] [employer] microgram, l 12:30: 1 tab, Lead 00 Route: PO, Drug form: TAB, Q630AM, Dosing Weight 78.182, kg, Start date: 10/06/13 6:30:00, Duration: 30 day, Stop date: 11/04/13 6:30:00Tak e 1 hour before or 2 hours after meal; Enteral feeds may interefere with the absorption of this medication . (Same as:Synthro id, Levothroid ) levothyroxi No [place] 75 Me moria ne - [employer] [employer] microgram, l 12:30: 1 tab, Lead 00 Route: PO, Drug form: TAB, Q630AM, Dosing Weight 78.182, kg, Start date: 10/06/13 6:30:00, Duration: 30 day, Stop date: 11/04/13 6:30:00Tak e 1 hour before or 2 hours after meal; Enteral feeds may interefere with the absorption of this medication . (Same as:Synthro id, Levothroid ) levothyroxi No [place] 75 Me moria ne - [employer] [employer] microgram, l 12:30: 1 tab, Vinnie 00 Route: PO, Drug form: TAB, Q630AM, Dosing Weight 78.182, kg, Start date: 10/06/13 6:30:00, Duration: 30 day, Stop date: 11/04/13 6:30:00Tak e 1 hour before or 2 hours after meal; Enteral feeds may interefere with the absorption of this medication . (Same as:Synthro id, Levothroid ) levothyroxi No [place] 75 Me moria ne -22 [place] microgram, l 12:30: 1 tab, Lead 00 Route: PO, Drug form: TAB, Q630AM, Dosing Weight 78.182, kg, Start date: 10/06/13 6:30:00, Duration: 30 day, Stop date: 11/04/13 6:30:00Tak e 1 hour before or 2 hours after meal; Enteral feeds may interefere with the absorption of this medication . (Same as:Synthro id, Levothroid ) levothyroxi No [place] 75 Me moria ne -22 [place] microgram, l 12:30: 1 tab, Lead 00 Route: PO, Drug form: TAB, Q630AM, Dosing Weight 78.182, kg, Start date: 10/06/13 6:30:00, Duration: 30 day, Stop date: 11/04/13 6:30:00Tak e 1 hour before or 2 hours after meal; Enteral feeds may interefere with the absorption of this medication . (Same as:Synthro id, Levothroid ) levothyroxi No [place] 75 Me moria ne - [employer] [employer] microgram, l 12:30: 1 tab, Lead 00 Route: PO, Drug form: TAB, Q630AM, Dosing Weight 78.182, kg, Start date: 10/06/13 6:30:00, Duration: 30 day, Stop date: 11/04/13 6:30:00Tak e 1 hour before or 2 hours after meal; Enteral feeds may interefere with the absorption of this medication . (Same as:Synthro id, Levothroid ) levothyroxi No [place] 75 Me moria ne - [employer] [employer] microgram, l 12:30: 1 tab, Lead 00 Route: PO, Drug form: TAB, Q630AM, Dosing Weight 78.182, kg, Start date: 10/06/13 6:30:00, Duration: 30 day, Stop date: 11/04/13 6:30:00Tak e 1 hour before or 2 hours after meal; Enteral feeds may interefere with the absorption of this medication . (Same as:Synthro id, Levothroid ) levothyroxi No [place] 75 Me moria ne -22 [place] microgram, l 12:30: 1 tab, Vinnie 00 Route: PO, Drug form: TAB, Q630AM, Dosing Weight 78.182, kg, Start date: 10/06/13 6:30:00, Duration: 30 day, Stop date: 11/04/13 6:30:00Tak e 1 hour before or 2 hours after meal; Enteral feeds may interefere with the absorption of this medication . (Same as:Synthro id, Levothroid ) levothyroxi 2013- No [place] 75 Me [place] ne -22 [place] microgram, l 12:30: 1 tab, Lead 00 Route: PO, Drug form: TAB, Q630AM, Dosing Weight 78.182, kg, Start date: 10/06/13 6:30:00, Duration: 30 day, Stop date: 11/04/13 6:30:00Tak e 1 hour before or 2 hours after meal; Enteral feeds may interefere with the absorption of this medication . (Same as:Synthro id, Levothroid ) levothyroxi No [place] 75 Me leahya ne - [employer] microgram, l 12:30: 1 tab, Vinnie 00 Route: PO, Drug form: TAB, Q630AM, Dosing Weight 78.182, kg, Start date: 10/06/13 6:30:00, Duration: 30 day, Stop date: 11/04/13 6:30:00Tak e 1 hour before or 2 hours after meal; Enteral feeds may interefere with the absorption of this medication . (Same as:Synthro id, Levothroid ) levothyroxi No [place] 75 Me [place] ne - [place] [employer] microgram, l 12:30: 1 tab, Vinnie 00 Route: PO, Drug form: TAB, Q630AM, Dosing Weight 78.182, kg, Start date: 10/06/13 6:30:00, Duration: 30 day, Stop date: 11/04/13 6:30:00Tak e 1 hour before or 2 hours after meal; Enteral feeds may interefere with the absorption of this medication . (Same as:Synthro id, Levothroid ) levothyroxi No [place] 75 Me [place] ne - [employer] [employer] microgram, l 12:30: 1 tab, Lead 00 Route: PO, Drug form: TAB, Q630AM, Dosing Weight 78.182, kg, Start date: 10/06/13 6:30:00, Duration: 30 day, Stop date: 11/04/13 6:30:00Tak e 1 hour before or 2 hours after meal; Enteral feeds may interefere with the absorption of this medication . (Same as:Synthro id, Levothroid ) levothyroxi No [place] 75 Me [place] ne - [employer] [employer] microgram, l 12:30: 1 tab, Lead 00 Route: PO, Drug form: TAB, Q630AM, Dosing Weight 78.182, kg, Start date: 10/06/13 6:30:00, Duration: 30 day, Stop date: 11/04/13 6:30:00Tak e 1 hour before or 2 hours after meal; Enteral feeds may interefere with the absorption of this medication . (Same as:Synthro id, Levothroid ) levothyroxi No [place] 75 Me leah[place] ne - [place] microgram, l 12:30: 1 tab, Lead 00 Route: PO, Drug form: TAB, Q630AM, Dosing Weight 78.182, kg, Start date: 10/06/13 6:30:00, Duration: 30 day, Stop date: 11/04/13 6:30:00Tak e 1 hour before or 2 hours after meal; Enteral feeds may interefere with the absorption of this medication . (Same as:Synthro id, Levothroid ) levothyroxi No [place] 75 Me [place] ne - [employer] microgram, l 12:30: 1 tab, Vinnie 00 Route: PO, Drug form: TAB, Q630AM, Dosing Weight 78.182, kg, Start date: 10/06/13 6:30:00, Duration: 30 day, Stop date: 11/04/13 6:30:00Tak e 1 hour before or 2 hours after meal; Enteral feeds may interefere with the absorption of this medication . (Same as:Synthro id, Levothroid ) levothyroxi No [place] 75 Me [place] ne - [employer] microgram, l 12:30: 1 tab, Lead 00 Route: PO, Drug form: TAB, Q630AM, Dosing Weight 78.182, kg, Start date: 10/06/13 6:30:00, Duration: 30 day, Stop date: 11/04/13 6:30:00Tak e 1 hour before or 2 hours after meal; Enteral feeds may interefere with the absorption of this medication . (Same as:Synthro id, Levothroid ) levothyroxi No [place] 75 Me nguyen ne - [employer] microgram, l 12:30: 1 tab, Vinnie 00 Route: PO, Drug form: TAB, Q630AM, Dosing Weight 78.182, kg, Start date: 10/06/13 6:30:00, Duration: 30 day, Stop date: 11/04/13 6:30:00Tak e 1 hour before or 2 hours after meal; Enteral feeds may interefere with the absorption of this medication . (Same as:Synthro id, Levothroid ) levothyroxi No [place] 75 Me nguyen ne - [place] [employer] microgram, l 12:30: 1 tab, Lead 00 Route: PO, Drug form: TAB, Q630AM, Dosing Weight 78.182, kg, Start date: 10/06/13 6:30:00, Duration: 30 day, Stop date: 11/04/13 6:30:00Tak e 1 hour before or 2 hours after meal; Enteral feeds may interefere with the absorption of this medication . (Same as:Synthro id, Levothroid ) levothyroxi No [place] 75 Me nguyen ne - [place] [employer] microgram, l 12:30: 1 tab, Vinnie 00 Route: PO, Drug form: TAB, Q630AM, Dosing Weight 78.182, kg, Start date: 10/06/13 6:30:00, Duration: 30 day, Stop date: 11/04/13 6:30:00Tak e 1 hour before or 2 hours after meal; Enteral feeds may interefere with the absorption of this medication . (Same as:Synthro id, Levothroid ) levothyroxi No [place] 75 Me nguyen ne - [place] [employer] microgram, l 12:30: 1 tab, Lead 00 Route: PO, Drug form: TAB, Q630AM, Dosing Weight 78.182, kg, Start date: 10/06/13 6:30:00, Duration: 30 day, Stop date: 11/04/13 6:30:00Tak e 1 hour before or 2 hours after meal; Enteral feeds may interefere with the absorption of this medication . (Same as:Synthro id, Levothroid ) Lovenox 2014-0 No [place] 40 mg, Semaj shashi 1-22 [place]f Route: l 10:00: SUB-Q, Lead 00 Drug form: INJ, [id number], Dosing Weight 78.182, kg, Priority: Routine, Start date: 10/06/13 4:00:00, Duration: 30 day, Stop date: 11/04/13 4:00:00 Lovenox 2014-0 No [place] 40 mg, Semaj shashi 1-22 [place] Route: l 10:00: SUB-Q, Vinnie 00 Drug form: INJ, [id number], Dosing Weight 78.182, kg, Priority: Routine, Start date: 10/06/13 4:00:00, Duration: 30 day, Stop date: 11/04/13 4:00:00 Lovenox 2014-0 No [place] 40 mg, Semaj shashi 1-22 [place] Stef Route: l 10:00: SUB-Q, Vinnie 00 Drug form: INJ, [id number], Dosing Weight 78.182, kg, Priority: Routine, Start date: 10/06/13 4:00:00, Duration: 30 day, Stop date: 11/04/13 4:00:00 Lovenox 2014-0 No [place] 40 mg, Smeaj shashi 1-22 [place] Stef Route: l 10:00: SUB-Q, Lead 00 Drug form: INJ, [id number], Dosing Weight 78.182, kg, Priority: Routine, Start date: 10/06/13 4:00:00, Duration: 30 day, Stop date: 11/04/13 4:00:00 Lovenox 2014-0 No [place] 40 mg, Semaj shashi 1-22 [place] Stef Route: l 10:00: SUB-Q, Lead 00 Drug form: INJ, [id number], Dosing Weight 78.182, kg, Priority: Routine, Start date: 10/06/13 4:00:00, Duration: 30 day, Stop date: 11/04/13 4:00:00 Lovenox 2014-0 No [place] 40 mg, Semaj shashi 1-22 [place] Stef Route: l 10:00: SUB-Q, Lead 00 Drug form: INJ, [id number], Dosing Weight 78.182, kg, Priority: Routine, Start date: 10/06/13 4:00:00, Duration: 30 day, Stop date: 11/04/13 4:00:00 Lovenox 2014-0 No [place] 40 mg, Semaj shashi 1-22 Avis Stef Route: l 10:00: SUB-Q, Lead 00 Drug form: INJ, [id number], Dosing Weight 78.182, kg, Priority: Routine, Start date: 10/06/13 4:00:00, Duration: 30 day, Stop date: 11/04/13 4:00:00 Lovenox 2014-0 No [place] 40 mg, Semaj shashi 1-22 Avis Stef Route: l 10:00: SUB-Q, Vinine 00 Drug form: INJ, [id number], Dosing Weight 78.182, kg, Priority: Routine, Start date: 10/06/13 4:00:00, Duration: 30 day, Stop date: 11/04/13 4:00:00 Lovenox 2014-0 No [place] 40 mg, Semaj shashi 1-22 Avis Stef Route: l 10:00: SUB-Q, Lead 00 Drug form: INJ, [id number], Dosing Weight 78.182, kg, Priority: Routine, Start date: 10/06/13 4:00:00, Duration: 30 day, Stop date: 11/04/13 4:00:00 Lovenox 2014-0 No [place] 40 mg, Semaj shashi 1-22 A[place] Stef Route: l 10:00: SUB-Q, Lead 00 Drug form: INJ, [id number], Dosing Weight 78.182, kg, Priority: Routine, Start date: 10/06/13 4:00:00, Duration: 30 day, Stop date: 11/04/13 4:00:00 Lovenox 2014-0 No [place] 40 mg, Semaj shashi 1-22 A[place] Stef Route: l 10:00: SUB-Q, Lead 00 Drug form: INJ, [id number], Dosing Weight 78.182, kg, Priority: Routine, Start date: 10/06/13 4:00:00, Duration: 30 day, Stop date: 11/04/13 4:00:00 Lovenox 2014-0 No [place] 40 mg, Semaj shashi 1-22 A[place] Stef Route: l 10:00: SUB-Q, Lead Drug form: INJ, [id number], Dosing Weight 78.182, kg, Priority: Routine, Start date: 10/06/13 4:00:00, Duration: 30 day, Stop date: 11/04/13 4:00:00 Lovenox 2014-0 No [place] 40 mg, Semaj shashi 1-22 A[place] Stef Route: l 10:00: SUB-Q, Vinnie 00 Drug form: INJ, [id number], Dosing Weight 78.182, kg, Priority: Routine, Start date: 10/06/13 4:00:00, Duration: 30 day, Stop date: 11/04/13 4:00:00 Lovenox 2014-0 No [place] 40 mg, Semaj shashi 1-22 A[place] Stef Route: l 10:00: SUB-Q, Lead Drug form: INJ, [id number], Dosing Weight 78.182, kg, Priority: Routine, Start date: 10/06/13 4:00:00, Duration: 30 day, Stop date: 11/04/13 4:00:00 Lovenox 2014-0 No [place] 40 mg, Semaj shashi 1-22 A[place] Stef Route: l 10:00: SUB-Q, Vinnie Drug form: INJ, [id number], Dosing Weight 78.182, kg, Priority: Routine, Start date: 10/06/13 4:00:00, Duration: 30 day, Stop date: 11/04/13 4:00:00 Lovenox 2014-0 No [place] 40 mg, Semaj shashi 1-22 Avis Stef Route: l 10:00: SUB-Q, Vinnie 00 Drug form: INJ, [id number], Dosing Weight 78.182, kg, Priority: Routine, Start date: 10/06/13 4:00:00, Duration: 30 day, Stop date: 11/04/13 4:00:00 Lovenox 2014-0 No [place] 40 mg, Semaj shashi 1-22 A[place] Stef Route: l 10:00: SUB-Q, Vinnie 00 Drug form: INJ, [id number], Dosing Weight 78.182, kg, Priority: Routine, Start date: 10/06/13 4:00:00, Duration: 30 day, Stop date: 11/04/13 4:00:00 Lovenox 2014-0 No [place] 40 mg, Semaj shashi 1-22 A[place] Stef Route: l 10:00: SUB-Q, Vinnie 00 Drug form: INJ, [id number], Dosing Weight 78.182, kg, Priority: Routine, Start date: 10/06/13 4:00:00, Duration: 30 day, Stop date: 11/04/13 4:00:00 Lovenox 2014-0 No [place] 40 mg, Semaj shashi 1-22 A[place] Stef Route: l 10:00: SUB-Q, Vinnie 00 Drug form: INJ, [id number], Dosing Weight 78.182, kg, Priority: Routine, Start date: 10/06/13 4:00:00, Duration: 30 day, Stop date: 11/04/13 4:00:00 Lovenox 2014-0 No [place] 40 mg, Semaj shashi 1-22 A[place] Stef Route: l 10:00: SUB-Q, Vinnie 00 Drug form: INJ, [id number], Dosing Weight 78.182, kg, Priority: Routine, Start date: 10/06/13 4:00:00, Duration: 30 day, Stop date: 11/04/13 4:00:00 Lovenox 2014-0 No [place] 40 mg, Semaj shashi 1-22 A[place] Stef Route: l 10:00: SUB-Q, Vinnie 00 Drug form: INJ, [id number], Dosing Weight 78.182, kg, Priority: Routine, Start date: 10/06/13 4:00:00, Duration: 30 day, Stop date: 11/04/13 4:00:00 Lovenox 2014-0 No [place] 40 mg, Semaj shashi 1-22 A[place] Stef Route: l 10:00: SUB-Q, Lead 00 Drug form: INJ, [id number], Dosing Weight 78.182, kg, Priority: Routine, Start date: 10/06/13 4:00:00, Duration: 30 day, Stop date: 11/04/13 4:00:00 Lovenox 2014-0 No [place] 40 mg, Semaj shashi 1-22 A[place] Stef Route: l 10:00: SUB-Q, Vinnie Drug form: INJ, [id number], Dosing Weight 78.182, kg, Priority: Routine, Start date: 10/06/13 4:00:00, Duration: 30 day, Stop date: 11/04/13 4:00:00 Lovenox 2014-0 No [place] 40 mg, Semaj shashi 1-22 Avis Stef Route: l 10:00: SUB-Q, Vinnie 00 Drug form: INJ, [id number], Dosing Weight 78.182, kg, Priority: Routine, Start date: 10/06/13 4:00:00, Duration: 30 day, Stop date: 11/04/13 4:00:00 Lovenox 2014-0 No [place] 40 mg, Semaj shashi 1-22 A[place] Stef Route: l 10:00: SUB-Q, Vinnie Drug form: INJ, [id number], Dosing Weight 78.182, kg, Priority: Routine, Start date: 10/06/13 4:00:00, Duration: 30 day, Stop date: 11/04/13 4:00:00 Lovenox 2014-0 No [place] 40 mg, Semaj shashi 1-22 A[place] Stef Route: l 10:00: SUB-Q, Lead Drug form: INJ, [id number], Dosing Weight 78.182, kg, Priority: Routine, Start date: 10/06/13 4:00:00, Duration: 30 day, Stop date: 11/04/13 4:00:00 Lovenox 2014-0 No [place] 40 mg, Semaj shashi 1-22 Avis Stef Route: l 10:00: SUB-Q, Lead 00 Drug form: INJ, [id number], Dosing Weight 78.182, kg, Priority: Routine, Start date: 10/06/13 4:00:00, Duration: 30 day, Stop date: 11/04/13 4:00:00 fentanyl 2013-0 No Lucila Y 25 Memor ia 1-22 [place] microgram, l 09:59: Route: Vinnie 00 IVP, ONCE, Dosing Weight 78.182, kg, Priority: STAT, Start date: 10/06/13 3:59:00, Stop date: 10/06/13 3:59:00 fentanyl 2013-0 No Lucila Y 25 Memor ia 1-22 [place] microgram, l 09:59: Route: Lead 00 IVP, ONCE, Dosing Weight 78.182, kg, Priority: STAT, Start date: 10/06/13 3:59:00, Stop date: 10/06/13 3:59:00 fentanyl 2013-0 No Lucila Y 25 Memor ia 1-22 [place] microgram, l 09:59: Route: Vinnie 00 IVP, ONCE, Dosing Weight 78.182, kg, Priority: STAT, Start date: 10/06/13 3:59:00, Stop date: 10/06/13 3:59:00 fentanyl 2013-0 No Lucila Y 25 Memor ia 1-22 [place] microgram, l 09:59: Route: Lead 00 IVP, ONCE, Dosing Weight 78.182, kg, Priority: STAT, Start date: 10/06/13 3:59:00, Stop date: 10/06/13 3:59:00 fentanyl 2013-0 No Lucila Y 25 Memor ia 1-22 [place] microgram, l 09:59: Route: Vinnie 00 IVP, ONCE, Dosing Weight 78.182, kg, Priority: STAT, Start date: 10/06/13 3:59:00, Stop date: 10/06/13 3:59:00 fentanyl 2013-0 No Lucila Y 25 Memor ia 1-22 [place] microgram, l 09:59: Route: Lead 00 IVP, ONCE, Dosing Weight 78.182, kg, Priority: STAT, Start date: 10/06/13 3:59:00, Stop date: 10/06/13 3:59:00 fentanyl 2014-0 No Lucila Y 25 Memor ia 1-22 [place] microgram, l 09:59: Route: Lead 00 IVP, ONCE, Dosing Weight 78.182, kg, Priority: STAT, Start date: 10/06/13 3:59:00, Stop date: 10/06/13 3:59:00 fentanyl 2013-0 No Lucila Y 25 Memor ia 1-22 [place] microgram, l 09:59: Route: Lead 00 IVP, ONCE, Dosing Weight 78.182, kg, Priority: STAT, Start date: 10/06/13 3:59:00, Stop date: 10/06/13 3:59:00 fentanyl 2013-0 No Lucila Y 25 Memor ia 1-22 [place] microgram, l 09:59: Route: Lead 00 IVP, ONCE, Dosing Weight 78.182, kg, Priority: STAT, Start date: 10/06/13 3:59:00, Stop date: 10/06/13 3:59:00 fentanyl 2014-0 No Lucila Y 25 Memor ia 1-22 [place] microgram, l 09:59: Route: Vinnie 00 IVP, ONCE, Dosing Weight 78.182, kg, Priority: STAT, Start date: 10/06/13 3:59:00, Stop date: 10/06/13 3:59:00 fentanyl 2013-0 No Lucila Y 25 Memor ia 1-22 [place] microgram, l 09:59: Route: Vinnie 00 IVP, ONCE, Dosing Weight 78.182, kg, Priority: STAT, Start date: 10/06/13 3:59:00, Stop date: 10/06/13 3:59:00 fentanyl 2013-0 No Lucila Y 25 Memor ia 1-22 [place] microgram, l 09:59: Route: Vinnie 00 IVP, ONCE, Dosing Weight 78.182, kg, Priority: STAT, Start date: 10/06/13 3:59:00, Stop date: 10/06/13 3:59:00 fentanyl 2013-0 No Lucila Y 25 Memor ia 1-22 [place] microgram, l 09:59: Route: Vinnie 00 IVP, ONCE, Dosing Weight 78.182, kg, Priority: STAT, Start date: 10/06/13 3:59:00, Stop date: 10/06/13 3:59:00 fentanyl 2014-0 No Lucila Y 25 Memor ia 1-22 [place] microgram, l 09:59: Route: Vinnie 00 IVP, ONCE, Dosing Weight 78.182, kg, Priority: STAT, Start date: 10/06/13 3:59:00, Stop date: 10/06/13 3:59:00 fentanyl 2013-0 No Lucila Y 25 Memor ia 1-22 [place] microgram, l 09:59: Route: Lead 00 IVP, ONCE, Dosing Weight 78.182, kg, Priority: STAT, Start date: 10/06/13 3:59:00, Stop date: 10/06/13 3:59:00 fentanyl 2013-0 No Lucila Y 25 Memor ia 1-22 [place] microgram, l 09:59: Route: Vinnie 00 IVP, ONCE, Dosing Weight 78.182, kg, Priority: STAT, Start date: 10/06/13 3:59:00, Stop date: 10/06/13 3:59:00 fentanyl 2013-0 No Lucila Y 25 Memor ia 1-22 [place] microgram, l 09:59: Route: Vinnie 00 IVP, ONCE, Dosing Weight 78.182, kg, Priority: STAT, Start date: 10/06/13 3:59:00, Stop date: 10/06/13 3:59:00 fentanyl 2013-0 No Lucila Y 25 Memor ia 1-22 [place] microgram, l 09:59: Route: Lead 00 IVP, ONCE, Dosing Weight 78.182, kg, Priority: STAT, Start date: 10/06/13 3:59:00, Stop date: 10/06/13 3:59:00 fentanyl 2013-0 No Lucila Y 25 Memor ia 1-22 [place] microgram, l 09:59: Route: Vinnie 00 IVP, ONCE, Dosing Weight 78.182, kg, Priority: STAT, Start date: 10/06/13 3:59:00, Stop date: 10/06/13 3:59:00 fentanyl 2013-0 No Lucila Y 25 Memor ia 1-22 [place] microgram, l 09:59: Route: Lead 00 IVP, ONCE, Dosing Weight 78.182, kg, Priority: STAT, Start date: 10/06/13 3:59:00, Stop date: 10/06/13 3:59:00 fentanyl 2013-0 No Lucila Y 25 Mem[facility] ia 1-22 [place] microgram, l 09:59: Route: Lead 00 IVP, ONCE, Dosing Weight 78.182, kg, Priority: STAT, Start date: 10/06/13 3:59:00, Stop date: 10/06/13 3:59:00 fentanyl 2013-0 No Lucila Y 25 Mem[facility] ia 1-22 [place] microgram, l 09:59: Route: Lead 00 IVP, ONCE, Dosing Weight 78.182, kg, Priority: STAT, Start date: 10/06/13 3:59:00, Stop date: 10/06/13 3:59:00 fentanyl 2013-0 No Lucila Y 25 Mem[facility] ia 1-22 [place] microgram, l 09:59: Route: Lead 00 IVP, ONCE, Dosing Weight 78.182, kg, Priority: STAT, Start date: 10/06/13 3:59:00, Stop date: 10/06/13 3:59:00 fentanyl 2013-0 No Lucila Y 25 Mem[facility] ia 1-22 [place] microgram, l 09:59: Route: Lead 00 IVP, ONCE, Dosing Weight 78.182, kg, Priority: STAT, Start date: 10/06/13 3:59:00, Stop date: 10/06/13 3:59:00 fentanyl 2013-0 No Lucila Y 25 Mem[facility] ia 1-22 [place] microgram, l 09:59: Route: Lead 00 IVP, ONCE, Dosing Weight 78.182, kg, Priority: STAT, Start date: 10/06/13 3:59:00, Stop date: 10/06/13 3:59:00 fentanyl 2013-0 No Lucila Y 25 Mem[facility] ia 1-22 [place] microgram, l 09:59: Route: Lead 00 IVP, ONCE, Dosing Weight 78.182, kg, Priority: STAT, Start date: 10/06/13 3:59:00, Stop date: 10/06/13 3:59:00 fentanyl 2013-0 No Lucila Y 25 Memor ia 1-22 [place] microgram, l 09:59: Route: Lead 00 IVP, ONCE, Dosing Weight 78.182, kg, Priority: STAT, Start date: 10/06/13 3:59:00, Stop date: 10/06/13 3:59:00 insulin 2014-0 No [place] 8 unit, Mem [facility]ria aspart 1-22 Avis Stef 0.08 mL, l 09:12: Route: Lead 00 SUB-Q, Drug form: SOLN, TID-Before Meals, Dosing Weight 78.182, kg, PRN Blood Glucose Results, Start date: 10/06/13 3:12:00, Duration: 30 day, Stop date: 11/05/13 3:11:00Rol l in palms of hands gently; Do not shake vigorously . (Same as: NovoLOG) "single patient use only" Stable for 28 days at room temperatur e. Expires in days from ____Date glucagon 2013-0 No [facility] 1 mg, Semaj shashi - Avis Stef Route: IM, l 09:12: Drug form: Vinnie 00 PDR/INJ, PRN, Dosing Weight 78.182, kg, PRN Blood Glucose Results, Start date: 10/06/13 3:12:00, Duration: 30 day, Stop date: 11/05/13 3:11:00 Dextrose 2013-0 No [facility] 12.5 gm, M emoria 50% Syringe - Avis Stef 25 mL, l 09:12: Route: Lead 00 IVP, Drug Form: INJ, Dosing Weight 78.182, kg, PRN, PRN Blood Glucose Results, Start date: 10/06/13 3:12:00, Duration: 30 day, Stop date: 11/05/13 3:11:00 insulin 2013-0 No [facility] 8 unit, Mem oria aspart - Avis Stef 0.08 mL, l 09:12: Route: Lead 00 SUB-Q, Drug form: SOLN, TID-Before Meals, Dosing Weight 78.182, kg, PRN Blood Glucose Results, Start date: 10/06/13 3:12:00, Duration: 30 day, Stop date: 11/05/13 3:11:00Rol l in palms of hands gently; Do not shake vigorously . (Same as: NovoLOG) "single patient use only" Stable for 28 days at room temperatur e. Expires in days from ____Date glucagon 2013-0 No [facility] 1 mg, Semaj shashi -22 Avis Stef Route: IM, l 09:12: Drug form: Vinnie 00 PDR/INJ, PRN, Dosing Weight 78.182, kg, PRN Blood Glucose Results, Start date: 10/06/13 3:12:00, Duration: 30 day, Stop date: 11/05/13 3:11:00 Dextrose 2013-0 No [facility] 12.5 gm, M emoria 50% Syringe -22 Avis Stef 25 mL, l 09:12: Route: Vinnie 00 IVP, Drug Form: INJ, Dosing Weight 78.182, kg, PRN, PRN Blood Glucose Results, Start date: 10/06/13 3:12:00, Duration: 30 day, Stop date: 11/05/13 3:11:00 insulin 2013-0 No [facility] 8 unit, Mem oria aspart - Avis Stef 0.08 mL, l 09:12: Route: [...] e. Expires in days from ____Date glucagon 2013-0 No [facility] 1 mg, Semaj shashi 1-22 Avis Stef Route: IM, l 09:12: Drug form: Vinnie 00 PDR/INJ, PRN, Dosing Weight 78.182, kg, PRN Blood Glucose Results, Start date: 10/06/13 3:12:00, Duration: 30 day, Stop date: 11/05/13 3:11:00 Dextrose 2013-0 No [facility] 12.5 gm, M emoria 50% Syringe -22 Avis Stef 25 mL, l 09:12: Route: Vinnie 00 IVP, Drug Form: INJ, Dosing Weight 78.182, kg, PRN, PRN Blood Glucose Results, Start date: 10/06/13 3:12:00, Duration: 30 day, Stop date: 11/05/13 3:11:00 insulin 2013-0 No [facility] 8 unit, Mem oria aspart -22 Avis Stef 0.08 mL, l 09:12: Route: Vinnie 00 SUB-Q, Drug form: SOLN, TID-Before Meals, Dosing Weight 78.182, kg, PRN Blood Glucose Results, Start date: 10/06/13 3:12:00, Duration: 30 day, Stop date: 11/05/13 3:11:00Rol l in palms of hands gently; Do not shake vigorously . (Same as: NovoLOG) "single patient use only" Stable for 28 days at room temperatur e. Expires in days from ____Date glucagon 2013-0 No [facility] 1 mg, Semaj shashi - Avis Stef Route: IM, l 09:12: Drug form: Vinnie PDR/INJ, PRN, Dosing Weight 78.182, kg, PRN Blood Glucose Results, Start date: 10/06/13 3:12:00, Duration: 30 day, Stop date: 11/05/13 3:11:00 Dextrose 2013-0 No [facility] 12.5 gm, M emoria 50% Syringe - Avis Stef 25 mL, l 09:12: Route: Lead 00 IVP, Drug Form: INJ, Dosing Weight 78.182, kg, PRN, PRN Blood Glucose Results, Start date: 10/06/13 3:12:00, Duration: 30 day, Stop date: 11/05/13 3:11:00 insulin 2013-0 No [facility] 8 unit, Mem oria aspart -22 Avis Stef 0.08 mL, l 09:12: Route: Lead 00 SUB-Q, Drug form: SOLN, TID-Before Meals, Dosing Weight 78.182, kg, PRN Blood Glucose Results, Start date: 10/06/13 3:12:00, Duration: 30 day, Stop date: 11/05/13 3:11:00Rol l in palms of hands gently; Do not shake vigorously . (Same as: NovoLOG) "single patient use only" Stable for 28 days at room temperatur e. Expires in days from ____Date glucagon 2013-0 No [facility] 1 mg, Semaj shashi 1-22 Avis Stef Route: IM, l 09:12: Drug form: Lead 00 PDR/INJ, PRN, Dosing Weight 78.182, kg, PRN Blood Glucose Results, Start date: 10/06/13 3:12:00, Duration: 30 day, Stop date: 11/05/13 3:11:00 Dextrose 2013-0 No [facility] 12.5 gm, M emoria 50% Syringe 1-22 Avis Stef 25 mL, l 09:12: Route: Vinnie 00 IVP, Drug Form: INJ, Dosing Weight 78.182, kg, PRN, PRN Blood Glucose Results, Start date: 10/06/13 3:12:00, Duration: 30 day, Stop date: 11/05/13 3:11:00 insulin 2013-0 No [facility] 8 unit, Mem oria aspart -22 Avis Stef 0.08 mL, l 09:12: Route: Vinnie 00 SUB-Q, Drug form: SOLN, TID-Before Meals, Dosing Weight 78.182, kg, PRN Blood Glucose Results, Start date: 10/06/13 3:12:00, Duration: 30 day, Stop date: 11/05/13 3:11:00Rol l in palms of hands gently; Do not shake vigorously . (Same as: NovoLOG) "single patient use only" Stable for 28 days at room temperatur e. Expires in days from ____Date glucagon 2013-0 No [facility] 1 mg, Semaj shashi 1-22 Avis Stef Route: IM, l 09:12: Drug form: Vinnie 00 PDR/INJ, PRN, Dosing Weight 78.182, kg, PRN Blood Glucose Results, Start date: 10/06/13 3:12:00, Duration: 30 day, Stop date: 11/05/13 3:11:00 Dextrose 2013-0 No [facility] 12.5 gm, M emoria 50% Syringe -22 Avis Stef 25 mL, l 09:12: Route: Vinnie 00 IVP, Drug Form: INJ, Dosing Weight 78.182, kg, PRN, PRN Blood Glucose Results, Start date: 10/06/13 3:12:00, Duration: 30 day, Stop date: 11/05/13 3:11:00 insulin 2013-0 No [facility] 8 unit, Mem oria aspart - Avis Stef 0.08 mL, l 09:12: Route: Lead 00 SUB-Q, Drug form: SOLN, TID-Before Meals, Dosing Weight 78.182, kg, PRN Blood Glucose Results, Start date: 10/06/13 3:12:00, Duration: 30 day, Stop date: 11/05/13 3:11:00Rol l in palms of hands gently; Do not shake vigorously . (Same as: NovoLOG) "single patient use only" Stable for 28 days at room temperatur e. Expires in days from ____Date glucagon 2013-0 No [facility] 1 mg, Semaj shashi - Avis Stef Route: IM, l 09:12: Drug form: PDR/INJ, PRN, Dosing Weight 78.182, kg, PRN Blood Glucose Results, Start date: 10/06/13 3:12:00, Duration: 30 day, Stop date: 11/05/13 3:11:00 Dextrose 2013-0 No [facility] 12.5 gm, M emoria 50% Syringe 10-06 Avsi Stef 25 mL, l 09:12: Route: Vinnie 00 IVP, Drug Form: INJ, Dosing Weight 78.182, kg, PRN, PRN Blood Glucose Results, Start date: 10/06/13 3:12:00, Duration: 30 day, Stop date: 11/05/13 3:11:00 insulin 2013-0 No [facility] 8 unit, Mem oria aspart - Avis Stef 0.08 mL, l 09:12: Route: Lead 00 SUB-Q, Drug form: SOLN, TID-Before Meals, Dosing Weight 78.182, kg, PRN Blood Glucose Results, Start date: 10/06/13 3:12:00, Duration: 30 day, Stop date: 11/05/13 3:11:00Rol l in palms of hands gently; Do not shake vigorously . (Same as: NovoLOG) "single patient use only" Stable for 28 days at room temperatur e. Expires in days from ____Date glucagon 2013-0 No [facility] 1 mg, Semaj shashi -22 Avis Stef Route: IM, l 09:12: Drug form: Lead 00 PDR/INJ, PRN, Dosing Weight 78.182, kg, PRN Blood Glucose Results, Start date: 10/06/13 3:12:00, Duration: 30 day, Stop date: 11/05/13 3:11:00 Dextrose 2013-0 No [facility] 12.5 gm, M emoria 50% Syringe - Avis Stef 25 mL, l 09:12: Route: Vinnie 00 IVP, Drug Form: INJ, Dosing Weight 78.182, kg, PRN, PRN Blood Glucose Results, Start date: 10/06/13 3:12:00, Duration: 30 day, Stop date: 11/05/13 3:11:00 insulin 2013-0 No [facility] 8 unit, Mem oria aspart - Avis Stef 0.08 mL, l 09:12: Route: Vinnie 00 SUB-Q, Drug form: SOLN, TID-Before Meals, Dosing Weight 78.182, kg, PRN Blood Glucose Results, Start date: 10/06/13 3:12:00, Duration: 30 day, Stop date: 11/05/13 3:11:00Rol l in palms of hands gently; Do not shake vigorously . (Same as: NovoLOG) "single patient use only" Stable for 28 days at room temperatur e. Expires in days from ____Date glucagon 2013-0 No [facility] 1 mg, Semaj shashi 1-22 Avis Stef Route: IM, l 09:12: Drug form: Lead 00 PDR/INJ, PRN, Dosing Weight 78.182, kg, PRN Blood Glucose Results, Start date: 10/06/13 3:12:00, Duration: 30 day, Stop date: 11/05/13 3:11:00 Dextrose 2013-0 No [facility] 12.5 gm, M emoria 50% Syringe -22 Avis Stef 25 mL, l 09:12: Route: Lead 00 IVP, Drug Form: INJ, Dosing Weight 78.182, kg, PRN, PRN Blood Glucose Results, Start date: 10/06/13 3:12:00, Duration: 30 day, Stop date: 11/05/13 3:11:00 insulin 2013-0 No [facility] 8 unit, Mem oria aspart -22 Avis Stef 0.08 mL, l 09:12: Route: Lead 00 SUB-Q, Drug form: SOLN, TID-Before Meals, Dosing Weight 78.182, kg, PRN Blood Glucose Results, Start date: 10/06/13 3:12:00, Duration: 30 day, Stop date: 11/05/13 3:11:00Rol l in palms of hands gently; Do not shake vigorously . (Same as: NovoLOG) "single patient use only" Stable for 28 days at room temperatur e. Expires in days from ____Date glucagon 2013-0 No [facility] 1 mg, Semaj shashi - Avis Stef Route: IM, l 09:12: Drug form: Lead 00 PDR/INJ, PRN, Dosing Weight 78.182, kg, PRN Blood Glucose Results, Start date: 10/06/13 3:12:00, Duration: 30 day, Stop date: 11/05/13 3:11:00 Dextrose 2013-0 No [facility] 12.5 gm, M emoria 50% Syringe -22 Avis Stef 25 mL, l 09:12: Route: Vinnie 00 IVP, Drug Form: INJ, Dosing Weight 78.182, kg, PRN, PRN Blood Glucose Results, Start date: 10/06/13 3:12:00, Duration: 30 day, Stop date: 11/05/13 3:11:00 insulin 2013-0 No [facility] 8 unit, Mem oria aspart -22 Avis Stef 0.08 mL, l 09:12: Route: Lead 00 SUB-Q, Drug form: SOLN, TID-Before Meals, Dosing Weight 78.182, kg, PRN Blood Glucose Results, Start date: 10/06/13 3:12:00, Duration: 30 day, Stop date: 11/05/13 3:11:00Rol l in palms of hands gently; Do not shake vigorously . (Same as: NovoLOG) "single patient use only" Stable for 28 days at room temperatur e. Expires in days from ____Date glucagon 2013-0 No [facility] 1 mg, Semaj shashi -22 Avis Stef Route: IM, l 09:12: Drug form: Vinnie 00 PDR/INJ, PRN, Dosing Weight 78.182, kg, PRN Blood Glucose Results, Start date: 10/06/13 3:12:00, Duration: 30 day, Stop date: 11/05/13 3:11:00 Dextrose 2013-0 No [facility] 12.5 gm, M emoria 50% Syringe - Avis Stef 25 mL, l 09:12: Route: Lead 00 IVP, Drug Form: INJ, Dosing Weight 78.182, kg, PRN, PRN Blood Glucose Results, Start date: 10/06/13 3:12:00, Duration: 30 day, Stop date: 11/05/13 3:11:00 insulin 2013-0 No [facility] 8 unit, Mem oria aspart - Avis Stef 0.08 mL, l 09:12: Route: Vinnie 00 SUB-Q, Drug form: SOLN, TID-Before Meals, Dosing Weight 78.182, kg, PRN Blood Glucose Results, Start date: 10/06/13 3:12:00, Duration: 30 day, Stop date: 11/05/13 3:11:00Rol l in palms of hands gently; Do not shake vigorously . (Same as: NovoLOG) "single patient use only" Stable for 28 days at room temperatur e. Expires in days from ____Date glucagon 2013-0 No [facility] 1 mg, Semaj shashi 1-22 Avis Stef Route: IM, l 09:12: Drug form: Vinnie 00 PDR/INJ, PRN, Dosing Weight 78.182, kg, PRN Blood Glucose Results, Start date: 10/06/13 3:12:00, Duration: 30 day, Stop date: 11/05/13 3:11:00 Dextrose 2013-0 No [facility] 12.5 gm, M emoria 50% Syringe -22 Avis Stef 25 mL, l 09:12: Route: IVP, Drug Form: INJ, Dosing Weight 78.182, kg, PRN, PRN Blood Glucose Results, Start date: 10/06/13 3:12:00, Duration: 30 day, Stop date: 11/05/13 3:11:00 insulin 2013-0 No [facility] 8 unit, Mem oria aspart - Avis Stef 0.08 mL, l 09:12: Route: [...] e. Expires in days from ____Date glucagon 2013-0 No [facility] 1 mg, Semaj shashi - Avis Stef Route: IM, l 09:12: Drug form: PDR/INJ, PRN, Dosing Weight 78.182, kg, PRN Blood Glucose Results, Start date: 10/06/13 3:12:00, Duration: 30 day, Stop date: 11/05/13 3:11:00 Dextrose 2013-0 No [facility] 12.5 gm, M emoria 50% Syringe -22 Avis Stef 25 mL, l 09:12: Route: IVP, Drug Form: INJ, Dosing Weight 78.182, kg, PRN, PRN Blood Glucose Results, Start date: 10/06/13 3:12:00, Duration: 30 day, Stop date: 11/05/13 3:11:00 insulin 2013-0 No [facility] 8 unit, Mem oria aspart - Avis Stef 0.08 mL, l 09:12: Route: Vinnie 00 SUB-Q, Drug form: SOLN, TID-Before Meals, Dosing Weight 78.182, kg, PRN Blood Glucose Results, Start date: 10/06/13 3:12:00, Duration: 30 day, Stop date: 11/05/13 3:11:00Rol l in palms of hands gently; Do not shake vigorously . (Same as: NovoLOG) "single patient use only" Stable for 28 days at room temperatur e. Expires in days from ____Date glucagon 2013-0 No [facility] 1 mg, Semaj shashi 10-06 Avis Stef Route: IM, l 09:12: Drug form: PDR/INJ, PRN, Dosing Weight 78.182, kg, PRN Blood Glucose Results, Start date: 10/06/13 3:12:00, Duration: 30 day, Stop date: 11/05/13 3:11:00 Dextrose 2013-0 No [facility] 12.5 gm, M emoria 50% Syringe 10-06 Avis Stef 25 mL, l 09:12: Route: Vinnie 00 IVP, Drug Form: INJ, Dosing Weight 78.182, kg, PRN, PRN Blood Glucose Results, Start date: 10/06/13 3:12:00, Duration: 30 day, Stop date: 11/05/13 3:11:00 insulin 2013-0 No [facility] 8 unit, Mem oria aspart 10-06 Avis Stef 0.08 mL, l 09:12: Route: Vinnie 00 SUB-Q, Drug form: SOLN, TID-Before Meals, Dosing Weight 78.182, kg, PRN Blood Glucose Results, Start date: 10/06/13 3:12:00, Duration: 30 day, Stop date: 11/05/13 3:11:00Rol l in palms of hands gently; Do not shake vigorously . (Same as: NovoLOG) "single patient use only" Stable for 28 days at room temperatur e. Expires in days from ____Date glucagon 2013-0 No [facility] 1 mg, Semaj shashi 1-22 Avis Setf Route: IM, l 09:12: Drug form: Lead 00 PDR/INJ, PRN, Dosing Weight 78.182, kg, PRN Blood Glucose Results, Start date: 10/06/13 3:12:00, Duration: 30 day, Stop date: 11/05/13 3:11:00 Dextrose 2013-0 No [facility] 12.5 gm, M emoria 50% Syringe -22 Avis Stef 25 mL, l 09:12: Route: Lead 00 IVP, Drug Form: INJ, Dosing Weight 78.182, kg, PRN, PRN Blood Glucose Results, Start date: 10/06/13 3:12:00, Duration: 30 day, Stop date: 11/05/13 3:11:00 insulin 2013-0 No [facility] 8 unit, Mem oria aspart - Avis Stef 0.08 mL, l 09:12: Route: [...] e. Expires in days from ____Date glucagon 2013-0 No [facility] 1 mg, Semaj shashi 1-22 Avis Stef Route: IM, l 09:12: Drug form: PDR/INJ, PRN, Dosing Weight 78.182, kg, PRN Blood Glucose Results, Start date: 10/06/13 3:12:00, Duration: 30 day, Stop date: 11/05/13 3:11:00 Dextrose 2013-0 No [facility] 12.5 gm, M emoria 50% Syringe 1-22 Avis Stef 25 mL, l 09:12: Route: Lead 00 IVP, Drug Form: INJ, Dosing Weight 78.182, kg, PRN, PRN Blood Glucose Results, Start date: 10/06/13 3:12:00, Duration: 30 day, Stop date: 11/05/13 3:11:00 insulin 2013-0 No [facility] 8 unit, Mem oria aspart - Avis Stef 0.08 mL, l 09:12: Route: Lead 00 SUB-Q, Drug form: SOLN, TID-Before Meals, Dosing Weight 78.182, kg, PRN Blood Glucose Results, Start date: 10/06/13 3:12:00, Duration: 30 day, Stop date: 11/05/13 3:11:00Rol l in palms of hands gently; Do not shake vigorously . (Same as: NovoLOG) "single patient use only" Stable for 28 days at room temperatur e. Expires in days from ____Date glucagon 2013-0 No [facility] 1 mg, Semaj shashi - Avis Stef Route: IM, l 09:12: Drug form: Lead PDR/INJ, PRN, Dosing Weight 78.182, kg, PRN Blood Glucose Results, Start date: 10/06/13 3:12:00, Duration: 30 day, Stop date: 11/05/13 3:11:00 Dextrose 2013-0 No [facility] 12.5 gm, M emoria 50% Syringe 10-06 Avis Stef 25 mL, l 09:12: Route: Lead IVP, Drug Form: INJ, Dosing Weight 78.182, kg, PRN, PRN Blood Glucose Results, Start date: 10/06/13 3:12:00, Duration: 30 day, Stop date: 11/05/13 3:11:00 insulin 2013-0 No [facility] 8 unit, Mem oria aspart - Avis Stef 0.08 mL, l 09:12: Route: Vinnie 00 SUB-Q, Drug form: SOLN, TID-Before Meals, Dosing Weight 78.182, kg, PRN Blood Glucose Results, Start date: 10/06/13 3:12:00, Duration: 30 day, Stop date: 11/05/13 3:11:00Rol l in palms of hands gently; Do not shake vigorously . (Same as: NovoLOG) "single patient use only" Stable for 28 days at room temperatur e. Expires in days from ____Date glucagon 2013-0 No [facility] 1 mg, Semaj shashi -22 Avis Stef Route: IM, l 09:12: Drug form: Lead 00 PDR/INJ, PRN, Dosing Weight 78.182, kg, PRN Blood Glucose Results, Start date: 10/06/13 3:12:00, Duration: 30 day, Stop date: 11/05/13 3:11:00 Dextrose 2013-0 No [facility] 12.5 gm, M emoria 50% Syringe 10-06 Avis Stef 25 mL, l 09:12: Route: Vinnie IVP, Drug Form: INJ, Dosing Weight 78.182, kg, PRN, PRN Blood Glucose Results, Start date: 10/06/13 3:12:00, Duration: 30 day, Stop date: 11/05/13 3:11:00 insulin 2013-0 No [facility] 8 unit, Mem oria aspart 10-06 Avis Stef 0.08 mL, l 09:12: Route: Lead 00 SUB-Q, Drug form: SOLN, TID-Before Meals, Dosing Weight 78.182, kg, PRN Blood Glucose Results, Start date: 10/06/13 3:12:00, Duration: 30 day, Stop date: 11/05/13 3:11:00Rol l in palms of hands gently; Do not shake vigorously . (Same as: NovoLOG) "single patient use only" Stable for 28 days at room temperat e. Expires in days from ____Date glucagon 2013-0 No [facility] 1 mg, Semaj shashi -22 Avis Stef Route: IM, l 09:12: Drug form: Lead 00 PDR/INJ, PRN, Dosing Weight 78.182, kg, PRN Blood Glucose Results, Start date: 10/06/13 3:12:00, Duration: 30 day, Stop date: 11/05/13 3:11:00 Dextrose 2013-0 No [facility] 12.5 gm, M emoria 50% Syringe 1-22 Avis Stef 25 mL, l 09:12: Route: Lead 00 IVP, Drug Form: INJ, Dosing Weight 78.182, kg, PRN, PRN Blood Glucose Results, Start date: 10/06/13 3:12:00, Duration: 30 day, Stop date: 11/05/13 3:11:00 insulin 2013-0 No [facility] 8 unit, Mem oria aspart -22 Avis Stef 0.08 mL, l 09:12: Route: Lead 00 SUB-Q, Drug form: SOLN, TID-Before Meals, Dosing Weight 78.182, kg, PRN Blood Glucose Results, Start date: 10/06/13 3:12:00, Duration: 30 day, Stop date: 11/05/13 3:11:00Rol l in palms of hands gently; Do not shake vigorously . (Same as: NovoLOG) "single patient use only" Stable for 28 days at room temperatur e. Expires in days from ____Date glucagon 2013-0 No [facility] 1 mg, Semaj shashi -22 Avis Stef Route: IM, l 09:12: Drug form: Lead 00 PDR/INJ, PRN, Dosing Weight 78.182, kg, PRN Blood Glucose Results, Start date: 10/06/13 3:12:00, Duration: 30 day, Stop date: 11/05/13 3:11:00 Dextrose 2013-0 No [facility] 12.5 gm, M emoria 50% Syringe -22 Avis Stef 25 mL, l 09:12: Route: Vinnie 00 IVP, Drug Form: INJ, Dosing Weight 78.182, kg, PRN, PRN Blood Glucose Results, Start date: 10/06/13 3:12:00, Duration: 30 day, Stop date: 11/05/13 3:11:00 insulin 2013-0 No [facility] 8 unit, Mem oria aspart -22 Avis Stef 0.08 mL, l 09:12: Route: Vinnie 00 SUB-Q, Drug form: SOLN, TID-Before Meals, Dosing Weight 78.182, kg, PRN Blood Glucose Results, Start date: 10/06/13 3:12:00, Duration: 30 day, Stop date: 11/05/13 3:11:00Rol l in palms of hands gently; Do not shake vigorously . (Same as: NovoLOG) "single patient use only" Stable for 28 days at room temperatur e. Expires in days from ____Date glucagon 2013-0 No [facility] 1 mg, Semaj shashi -22 Avis Stef Route: IM, l 09:12: Drug form: Lead 00 PDR/INJ, PRN, Dosing Weight 78.182, kg, PRN Blood Glucose Results, Start date: 10/06/13 3:12:00, Duration: 30 day, Stop date: 11/05/13 3:11:00 Dextrose 2013-0 No [facility] 12.5 gm, M emoria 50% Syringe 10-06 Avis Stef 25 mL, l 09:12: Route: Vinnie IVP, Drug Form: INJ, Dosing Weight 78.182, kg, PRN, PRN Blood Glucose Results, Start date: 10/06/13 3:12:00, Duration: 30 day, Stop date: 11/05/13 3:11:00 insulin 2013-0 No [facility] 8 unit, Mem oria aspart 10-06 Avis Stef 0.08 mL, l 09:12: Route: Vinnie 00 SUB-Q, Drug form: SOLN, TID-Before Meals, Dosing Weight 78.182, kg, PRN Blood Glucose Results, Start date: 10/06/13 3:12:00, Duration: 30 day, Stop date: 11/05/13 3:11:00Rol l in palms of hands gently; Do not shake vigorously . (Same as: NovoLOG) "single patient use only" Stable for 28 days at room temperatur e. Expires in days from ____Date glucagon 2013-0 No [facility] 1 mg, Semaj shashi 1-22 Avis Stef Route: IM, l 09:12: Drug form: Lead 00 PDR/INJ, PRN, Dosing Weight 78.182, kg, PRN Blood Glucose Results, Start date: 10/06/13 3:12:00, Duration: 30 day, Stop date: 11/05/13 3:11:00 Dextrose 2013-0 No [facility] 12.5 gm, M emoria 50% Syringe -22 Avis Stef 25 mL, l 09:12: Route: Lead 00 IVP, Drug Form: INJ, Dosing Weight 78.182, kg, PRN, PRN Blood Glucose Results, Start date: 10/06/13 3:12:00, Duration: 30 day, Stop date: 11/05/13 3:11:00 insulin 2013-0 No [facility] 8 unit, Mem oria aspart -22 Avis Stef 0.08 mL, l 09:12: Route: Vinnie 00 SUB-Q, Drug form: SOLN, TID-Before Meals, Dosing Weight 78.182, kg, PRN Blood Glucose Results, Start date: 10/06/13 3:12:00, Duration: 30 day, Stop date: 11/05/13 3:11:00Rol l in palms of hands gently; Do not shake vigorously . (Same as: NovoLOG) "single patient use only" Stable for 28 days at room temperatur e. Expires in days from ____Date glucagon 2013-0 No [facility] 1 mg, Semaj shashi - Avis Stef Route: IM, l 09:12: Drug form: Lead 00 PDR/INJ, PRN, Dosing Weight 78.182, kg, PRN Blood Glucose Results, Start date: 10/06/13 3:12:00, Duration: 30 day, Stop date: 11/05/13 3:11:00 Dextrose 2013-0 No [facility] 12.5 gm, M emoria 50% Syringe -22 Avis Stef 25 mL, l 09:12: Route: Lead 00 IVP, Drug Form: INJ, Dosing Weight 78.182, kg, PRN, PRN Blood Glucose Results, Start date: 10/06/13 3:12:00, Duration: 30 day, Stop date: 11/05/13 3:11:00 insulin 2013-0 No [facility] 8 unit, Mem oria aspart -22 Avis Stef 0.08 mL, l 09:12: Route: Lead 00 SUB-Q, Drug form: SOLN, TID-Before Meals, Dosing Weight 78.182, kg, PRN Blood Glucose Results, Start date: 10/06/13 3:12:00, Duration: 30 day, Stop date: 11/05/13 3:11:00Rol l in palms of hands gently; Do not shake vigorously . (Same as: NovoLOG) "single patient use only" Stable for 28 days at room temperatur e. Expires in days from ____Date glucagon 2013-0 No [facility] 1 mg, Semaj shashi 1-22 Avis Stef Route: IM, l 09:12: Drug form: Vinnie 00 PDR/INJ, PRN, Dosing Weight 78.182, kg, PRN Blood Glucose Results, Start date: 10/06/13 3:12:00, Duration: 30 day, Stop date: 11/05/13 3:11:00 Dextrose 2013-0 No [facility] 12.5 gm, M emoria 50% Syringe -22 Avis Stef 25 mL, l 09:12: Route: Lead IVP, Drug Form: INJ, Dosing Weight 78.182, kg, PRN, PRN Blood Glucose Results, Start date: 10/06/13 3:12:00, Duration: 30 day, Stop date: 11/05/13 3:11:00 insulin 2013-0 No [facility] 8 unit, Mem oria aspart -22 Avis Stef 0.08 mL, l 09:12: Route: Lead SUB-Q, Drug form: SOLN, TID-Before Meals, Dosing Weight 78.182, kg, PRN Blood Glucose Results, Start date: 10/06/13 3:12:00, Duration: 30 day, Stop date: 11/05/13 3:11:00Rol l in palms of hands gently; Do not shake vigorously . (Same as: NovoLOG) "single patient use only" Stable for 28 days at room temperatur e. Expires in days from ____Date glucagon 2013-0 No [facility] 1 mg, Semaj shashi 1-22 Avis Stef Route: IM, l 09:12: Drug form: PDR/INJ, PRN, Dosing Weight 78.182, kg, PRN Blood Glucose Results, Start date: 10/06/13 3:12:00, Duration: 30 day, Stop date: 11/05/13 3:11:00 Dextrose 2013-0 No [facility] 12.5 gm, M emoria 50% Syringe -22 Avis Stef 25 mL, l 09:12: Route: IVP, Drug Form: INJ, Dosing Weight 78.182, kg, PRN, PRN Blood Glucose Results, Start date: 10/06/13 3:12:00, Duration: 30 day, Stop date: 11/05/13 3:11:00 insulin 2013-0 No Galilea 8 unit, Mem oria aspart [...] e. Expires in days from ____Date glucagon 2013-0 No Galilea 1 mg, Semaj shashi - Avis Stef Route: IM, l 09:12: Drug form: PDR/INJ, PRN, Dosing Weight 78.182, kg, PRN Blood Glucose Results, Start date: 10/06/13 3:12:00, Duration: 30 day, Stop date: 11/05/13 3:11:00 Dextrose 2013-0 No Galilea 12.5 gm, M emoria 50% Syringe -22 Avis Stef 25 mL, l 09:12: Route: IVP, Drug Form: INJ, Dosing Weight 78.182, kg, PRN, PRN Blood Glucose Results, Start date: 10/06/13 3:12:00, Duration: 30 day, Stop date: 11/05/13 3:11:00 insulin No Galilea 8 unit, Mem oria [...] (4 gm/day). (Same as: Tylenol Extra Strength) acetaminoph No Galilea 500 mg, 1 Memoria en 10-06 Avis Stef tab, l 09:10: Route: PO, Vinnie 00 Drug form: TAB, Q4H, Dosing Weight 78.182, kg, PRN as needed for pain, Start date: 10/06/13 3:10:00, Duration: 30 day, Stop date: 11/05/13 3:09:00Max acetaminop hen 4000 mg/day (4 gm/day). (Same as: Tylenol Extra Strength) acetaminoph No Galilea 500 mg, 1 Memoria en 10-06 Avis Stef tab, l 09:10: Route: PO, Vinnie 00 Drug form: TAB, Q4H, Dosing Weight 78.182, kg, PRN as needed for pain, Start date: 10/06/13 3:10:00, Duration: 30 day, Stop date: 11/05/13 3:09:00Max acetaminop hen 4000 mg/day (4 gm/day). (Same as: Tylenol Extra Strength) acetaminoph No Galilea 500 mg, 1 Memoria en 10-06 Avis Stef tab, l 09:10: Route: PO, Vinnie 00 Drug form: TAB, Q4H, Dosing Weight 78.182, kg, PRN as needed for pain, Start date: 10/06/13 3:10:00, Duration: 30 day, Stop date: 11/05/13 3:09:00Max acetaminop hen 4000 mg/day (4 gm/day). (Same as: Tylenol Extra Strength) acetaminoph No Galilea 500 mg, 1 Memoria en 10-06 Avis Stef tab, l 09:10: Route: PO, Vinnie 00 Drug form: TAB, Q4H, Dosing Weight 78.182, kg, PRN as needed for pain, Start date: 10/06/13 3:10:00, Duration: 30 day, Stop date: 11/05/13 3:09:00Max acetaminop hen 4000 mg/day (4 gm/day). (Same as: Tylenol Extra Strength) acetaminoph No Galilea 500 mg, 1 Memoria en 10-06 Avis Stef tab, l 09:10: Route: PO, Vinnie 00 Drug form: TAB, Q4H, Dosing Weight 78.182, kg, PRN as needed for pain, Start date: 10/06/13 3:10:00, Duration: 30 day, Stop date: 11/05/13 3:09:00Max acetaminop hen 4000 mg/day (4 gm/day). (Same as: Tylenol Extra Strength) acetaminoph No Galile[place] 500 mg, 1 Memoria en 10-06 Avis Stef tab, l 09:10: Route: PO, Lead 00 Drug form: TAB, Q4H, Dosing Weight 78.182, kg, PRN as needed for pain, Start date: 10/06/13 3:10:00, Duration: 30 day, Stop date: 11/05/13 3:09:00Max acetaminop hen 4000 mg/day (4 gm/day). (Same as: Tylenol Extra Strength) acetaminoph No Galile[place] 500 mg, 1 Memoria en 10-06 Avis Stef tab, l 09:10: Route: PO, Lead 00 Drug form: TAB, Q4H, Dosing Weight 78.182, kg, PRN as needed for pain, Start date: 10/06/13 3:10:00, Duration: 30 day, Stop date: 11/05/13 3:09:00Max acetaminop hen 4000 mg/day (4 gm/day). (Same as: Tylenol Extra Strength) acetaminoph No Galile[place] 500 mg, 1 Memoria en 10-06 Avis Stef tab, l 09:10: Route: PO, Vinnie 00 Drug form: TAB, Q4H, Dosing Weight 78.182, kg, PRN as needed for pain, Start date: 10/06/13 3:10:00, Duration: 30 day, Stop date: 11/05/13 3:09:00Max acetaminop hen 4000 mg/day (4 gm/day). (Same as: Tylenol Extra Strength) acetaminoph No Galile[place] 500 mg, 1 Memoria en 10-06 Avis Stef tab, l 09:10: Route: PO, Vinnie 00 Drug form: TAB, Q4H, Dosing Weight 78.182, kg, PRN as needed for pain, Start date: 10/06/13 3:10:00, Duration: 30 day, Stop date: 11/05/13 3:09:00Max acetaminop hen 4000 mg/day (4 gm/day). (Same as: Tylenol Extra Strength) acetaminoph No Galile[place] 500 mg, 1 Mem[facility] en 10-06 Avis Stef tab, l 09:10: Route: PO, Lead 00 Drug form: TAB, Q4H, Dosing Weight 78.182, kg, PRN as needed for pain, Start date: 10/06/13 3:10:00, Duration: 30 day, Stop date: 11/05/13 3:09:00Max acetaminop hen 4000 mg/day (4 gm/day). (Same as: Tylenol Extra Strength) acetaminoph No [place] 500 mg, 1 Memoria en 10-06 Avis Stef tab, l 09:10: Route: PO, Lead 00 Drug form: TAB, Q4H, Dosing Weight 78.182, kg, PRN as needed for pain, Start date: 10/06/13 3:10:00, Duration: 30 day, Stop date: 11/05/13 3:09:00Max acetaminop hen 4000 mg/day (4 gm/day). (Same as: Tylenol Extra Strength) acetaminoph No [place] 500 mg, 1 Memoria en 10-06 Avis Stef tab, l 09:10: Route: PO, Vinnie 00 Drug form: TAB, Q4H, Dosing Weight 78.182, kg, PRN as needed for pain, Start date: 10/06/13 3:10:00, Duration: 30 day, Stop date: 11/05/13 3:09:00Max acetaminop hen 4000 mg/day (4 gm/day). (Same as: Tylenol Extra Strength) acetaminoph No Galile[place] 500 mg, 1 Memoria en 10-06 Avis Stef tab, l 09:10: Route: PO, Lead 00 Drug form: TAB, Q4H, Dosing Weight 78.182, kg, PRN as needed for pain, Start date: 10/06/13 3:10:00, Duration: 30 day, Stop date: 11/05/13 3:09:00Max acetaminop hen 4000 mg/day (4 gm/day). (Same as: Tylenol Extra Strength) acetaminoph No [place] 500 mg, 1 [facility] en 10-06 Avis Stef tab, l 09:10: Route: PO, Lead 00 Drug form: TAB, Q4H, Dosing Weight 78.182, kg, PRN as needed for pain, Start date: 10/06/13 3:10:00, Duration: 30 day, Stop date: 11/05/13 3:09:00Max acetaminop hen 4000 mg/day (4 gm/day). (Same as: Tylenol Extra Strength) acetaminoph No [place] 500 mg, 1 [facility] en 10-06 Avis Stef tab, l 09:10: Route: PO, Lead 00 Drug form: TAB, Q4H, Dosing Weight 78.182, kg, PRN as needed for pain, Start date: 10/06/13 3:10:00, Duration: 30 day, Stop date: 11/05/13 3:09:00Max acetaminop hen 4000 mg/day (4 gm/day). (Same as: Tylenol Extra Strength) acetaminoph No [place] 500 mg, 1 [facility] en 10-06 Avis Stef tab, l 09:10: Route: PO, Lead 00 Drug form: TAB, Q4H, Dosing Weight 78.182, kg, PRN as needed for pain, Start date: 10/06/13 3:10:00, Duration: 30 day, Stop date: 11/05/13 3:09:00Max acetaminop hen 4000 mg/day (4 gm/day). (Same as: Tylenol Extra Strength) acetaminoph No [place] 500 mg, 1 [facility] en 10-06 Avis Stef tab, l 09:10: Route: PO, Lead 00 Drug form: TAB, Q4H, Dosing Weight 78.182, kg, PRN as needed for pain, Start date: 10/06/13 3:10:00, Duration: 30 day, Stop date: 11/05/13 3:09:00Max acetaminop hen 4000 mg/day (4 gm/day). (Same as: Tylenol Extra Strength) acetaminoph No [place] 500 mg, 1 [facility] en 10-06 Avis Stef tab, l 09:10: Route: PO, Vinnie 00 Drug form: TAB, Q4H, Dosing Weight 78.182, kg, PRN as needed for pain, Start date: 10/06/13 3:10:00, Duration: 30 day, Stop date: 11/05/13 3:09:00Max acetaminop hen 4000 mg/day (4 gm/day). (Same as: Tylenol Extra Strength) acetaminoph No [place] 500 mg, 1 [facility] en 10-06 Avis Stef tab, l 09:10: Route: PO, Lead 00 Drug form: TAB, Q4H, Dosing Weight 78.182, kg, PRN as needed for pain, Start date: 10/06/13 3:10:00, Duration: 30 day, Stop date: 11/05/13 3:09:00Max acetaminop hen 4000 mg/day (4 gm/day). (Same as: Tylenol Extra Strength) acetaminoph No [place] 500 mg, 1 Mem[facility] en 10-06 Avis Stef tab, l 09:10: Route: PO, Lead 00 Drug form: TAB, Q4H, Dosing Weight 78.182, kg, PRN as needed for pain, Start date: 10/06/13 3:10:00, Duration: 30 day, Stop date: 11/05/13 3:09:00Max acetaminop hen 4000 mg/day (4 gm/day). (Same as: Tylenol Extra Strength) acetaminoph No [place] 500 mg, 1 Mem[facility] en 10-06 Avis Stef tab, l 09:10: Route: PO, Vinnie 00 Drug form: TAB, Q4H, Dosing Weight 78.182, kg, PRN as needed for pain, Start date: 10/06/13 3:10:00, Duration: 30 day, Stop date: 11/05/13 3:09:00Max acetaminop hen 4000 mg/day (4 gm/day). (Same as: Tylenol Extra Strength) acetaminoph No [place] 500 mg, 1 [facility] en 10-06 Avis Stef tab, l 09:10: Route: PO, Vinnie 00 Drug form: TAB, Q4H, Dosing Weight 78.182, kg, PRN as needed for pain, Start date: 10/06/13 3:10:00, Duration: 30 day, Stop date: 11/05/13 3:09:00Max acetaminop hen 4000 mg/day (4 gm/day). (Same as: Tylenol Extra Strength) acetaminoph No [place] 500 mg, 1 Mem[facility] en 10-06 Avis Stef tab, l 09:10: Route: PO, Lead 00 Drug form: TAB, Q4H, Dosing Weight 78.182, kg, PRN as needed for pain, Start date: 10/06/13 3:10:00, Duration: 30 day, Stop date: 11/05/13 3:09:00Max acetaminop hen 4000 mg/day (4 gm/day). (Same as: Tylenol Extra Strength) acetaminoph No [place] 500 mg, 1 [facility] en 10-06 Avis Stef tab, l 09:10: Route: PO, Vinnie 00 Drug form: TAB, Q4H, Dosing Weight 78.182, kg, PRN as needed for pain, Start date: 10/06/13 3:10:00, Duration: 30 day, Stop date: 11/05/13 3:09:00Max acetaminop hen 4000 mg/day (4 gm/day). (Same as: Tylenol Extra Strength) acetaminoph No [place] 500 mg, 1 [facility] en 10-06 Avis Stef tab, l 09:10: Route: PO, Lead 00 Drug form: TAB, Q4H, Dosing Weight 78.182, kg, PRN as needed for pain, Start date: 10/06/13 3:10:00, Duration: 30 day, Stop date: 11/05/13 3:09:00Max acetaminop hen 4000 mg/day (4 gm/day). (Same as: Tylenol Extra Strength) acetaminoph No [place] 500 mg, 1 Mem[facility] en 10-06 Avis Stef tab, l 09:10: Route: PO, Vinnie 00 Drug form: TAB, Q4H, Dosing Weight 78.182, kg, PRN as needed for pain, Start date: 10/06/13 3:10:00, Duration: 30 day, Stop date: 11/05/13 3:09:00Max acetaminop hen 4000 mg/day (4 gm/day). (Same as: Tylenol Extra Strength) tramadol No Galile[place] 50 mg, 1 M emoria 10-06 Avis Stef tab, l 08:41: Route: PO, Lead 00 Drug form: TAB, Q4H, Dosing Weight 78.182, kg, PRN as needed for pain, > 50 kg, Priority: Routine, Start date: 10/06/13 2:41:00, Duration: 30 day, Stop date: 11/05/13 2:40:00Not to exceed 400mg/day. (Same As: Ultram) tramadol No Galile[place] 50 mg, 1 M emoria 10-06 Avis Stef tab, l 08:41: Route: PO, Lead 00 Drug form: TAB, Q4H, Dosing Weight 78.182, kg, PRN as needed for pain, > 50 kg, Priority: Routine, Start date: 10/06/13 2:41:00, Duration: 30 day, Stop date: 11/05/13 2:40:00Not to exceed 400mg/day. (Same As: Ultram) tramadol No [place] 50 mg, 1 M emoria 10-06 Avis Stef tab, l 08:41: Route: PO, Lead 00 Drug form: TAB, Q4H, Dosing Weight 78.182, kg, PRN as needed for pain, > 50 kg, Priority: Routine, Start date: 10/06/13 2:41:00, Duration: 30 day, Stop date: 11/05/13 2:40:00Not to exceed 400mg/day. (Same As: Ultram) tramadol No [place] 50 mg, 1 M emoria 10-06 Avis Stef tab, l 08:41: Route: PO, Lead 00 Drug form: TAB, Q4H, Dosing Weight 78.182, kg, PRN as needed for pain, > 50 kg, Priority: Routine, Start date: 10/06/13 2:41:00, Duration: 30 day, Stop date: 11/05/13 2:40:00Not to exceed 400mg/day. (Same As: Ultram) tramadol No [place] 50 mg, 1 M emoria 10-06 Avis Stef tab, l 08:41: Route: PO, Lead 00 Drug form: TAB, Q4H, Dosing Weight 78.182, kg, PRN as needed for pain, > 50 kg, Priority: Routine, Start date: 10/06/13 2:41:00, Duration: 30 day, Stop date: 11/05/13 2:40:00Not to exceed 400mg/day. (Same As: Ultram) tramadol No [place] 50 mg, 1 M emoria 10-06 Avis Stef tab, l 08:41: Route: PO, Lead 00 Drug form: TAB, Q4H, Dosing Weight 78.182, kg, PRN as needed for pain, > 50 kg, Priority: Routine, Start date: 10/06/13 2:41:00, Duration: 30 day, Stop date: 11/05/13 2:40:00Not to exceed 400mg/day. (Same As: Ultram) tramadol No [place] 50 mg, 1 M emoria 10-06 Avis Stef tab, l 08:41: Route: PO, Vinnie 00 Drug form: TAB, Q4H, Dosing Weight 78.182, kg, PRN as needed for pain, > 50 kg, Priority: Routine, Start date: 10/06/13 2:41:00, Duration: 30 day, Stop date: 11/05/13 2:40:00Not to exceed 400mg/day. (Same As: Ultram) tramadol No [place] 50 mg, 1 M emoria 10-06 Avis Stef tab, l 08:41: Route: PO, Lead 00 Drug form: TAB, Q4H, Dosing Weight 78.182, kg, PRN as needed for pain, > 50 kg, Priority: Routine, Start date: 10/06/13 2:41:00, Duration: 30 day, Stop date: 11/05/13 2:40:00Not to exceed 400mg/day. (Same As: Ultram) tramadol No [place] 50 mg, 1 M emoria 10-06 Avis Stef tab, l 08:41: Route: PO, Lead 00 Drug form: TAB, Q4H, Dosing Weight 78.182, kg, PRN as needed for pain, > 50 kg, Priority: Routine, Start date: 10/06/13 2:41:00, Duration: 30 day, Stop date: 11/05/13 2:40:00Not to exceed 400mg/day. (Same As: Ultram) tramadol No [place] 50 mg, 1 M emoria 10-06 Avis Stef tab, l 08:41: Route: PO, Vinnie 00 Drug form: TAB, Q4H, Dosing Weight 78.182, kg, PRN as needed for pain, > 50 kg, Priority: Routine, Start date: 10/06/13 2:41:00, Duration: 30 day, Stop date: 11/05/13 2:40:00Not to exceed 400mg/day. (Same As: Ultram) tramadol No [place] 50 mg, 1 M emoria 10-06 Avis Stef tab, l 08:41: Route: PO, Lead 00 Drug form: TAB, Q4H, Dosing Weight 78.182, kg, PRN as needed for pain, > 50 kg, Priority: Routine, Start date: 10/06/13 2:41:00, Duration: 30 day, Stop date: 11/05/13 2:40:00Not to exceed 400mg/day. (Same As: Ultram) tramadol No [place] 50 mg, 1 M emoria 10-06 Avis Stef tab, l 08:41: Route: PO, Lead 00 Drug form: TAB, Q4H, Dosing Weight 78.182, kg, PRN as needed for pain, > 50 kg, Priority: Routine, Start date: 10/06/13 2:41:00, Duration: 30 day, Stop date: 11/05/13 2:40:00Not to exceed 400mg/day. (Same As: Ultram) tramadol No [place] 50 mg, 1 M emoria 10-06 Avis Stef tab, l 08:41: Route: PO, Lead 00 Drug form: TAB, Q4H, Dosing Weight 78.182, kg, PRN as needed for pain, > 50 kg, Priority: Routine, Start date: 10/06/13 2:41:00, Duration: 30 day, Stop date: 11/05/13 2:40:00Not to exceed 400mg/day. (Same As: Ultram) tramadol No [place] 50 mg, 1 M emoria 10-06 Avis Stef tab, l 08:41: Route: PO, Lead 00 Drug form: TAB, Q4H, Dosing Weight 78.182, kg, PRN as needed for pain, > 50 kg, Priority: Routine, Start date: 10/06/13 2:41:00, Duration: 30 day, Stop date: 11/05/13 2:40:00Not to exceed 400mg/day. (Same As: Ultram) tramadol No [place] 50 mg, 1 M emoria 10-06 Avis Stef tab, l 08:41: Route: PO, Vinnie 00 Drug form: TAB, Q4H, Dosing Weight 78.182, kg, PRN as needed for pain, > 50 kg, Priority: Routine, Start date: 10/06/13 2:41:00, Duration: 30 day, Stop date: 11/05/13 2:40:00Not to exceed 400mg/day. (Same As: Ultram) tramadol No [place] 50 mg, 1 M emoria 10-06 Avis Stef tab, l 08:41: Route: PO, Lead 00 Drug form: TAB, Q4H, Dosing Weight 78.182, kg, PRN as needed for pain, > 50 kg, Priority: Routine, Start date: 10/06/13 2:41:00, Duration: 30 day, Stop date: 11/05/13 2:40:00Not to exceed 400mg/day. (Same As: Ultram) tramadol No [place] 50 mg, 1 M emoria 10-06 Avis Stef tab, l 08:41: Route: PO, Lead 00 Drug form: TAB, Q4H, Dosing Weight 78.182, kg, PRN as needed for pain, > 50 kg, Priority: Routine, Start date: 10/06/13 2:41:00, Duration: 30 day, Stop date: 11/05/13 2:40:00Not to exceed 400mg/day. (Same As: Ultram) tramadol No [place] 50 mg, 1 M emoria 10-06 Avis Stef tab, l 08:41: Route: PO, Lead 00 Drug form: TAB, Q4H, Dosing Weight 78.182, kg, PRN as needed for pain, > 50 kg, Priority: Routine, Start date: 10/06/13 2:41:00, Duration: 30 day, Stop date: 11/05/13 2:40:00Not to exceed 400mg/day. (Same As: Ultram) tramadol No [place] 50 mg, 1 M emoria 10-06 Avis Stef tab, l 08:41: Route: PO, Lead 00 Drug form: TAB, Q4H, Dosing Weight 78.182, kg, PRN as needed for pain, > 50 kg, Priority: Routine, Start date: 10/06/13 2:41:00, Duration: 30 day, Stop date: 11/05/13 2:40:00Not to exceed 400mg/day. (Same As: Ultram) tramadol No [place] 50 mg, 1 M emoria 10-06 Avis Stef tab, l 08:41: Route: PO, Vinnie 00 Drug form: TAB, Q4H, Dosing Weight 78.182, kg, PRN as needed for pain, > 50 kg, Priority: Routine, Start date: 10/06/13 2:41:00, Duration: 30 day, Stop date: 11/05/13 2:40:00Not to exceed 400mg/day. (Same As: Ultram) tramadol No [place] 50 mg, 1 M emoria 10-06 Avis Stef tab, l 08:41: Route: PO, Lead 00 Drug form: TAB, Q4H, Dosing Weight 78.182, kg, PRN as needed for pain, > 50 kg, Priority: Routine, Start date: 10/06/13 2:41:00, Duration: 30 day, Stop date: 11/05/13 2:40:00Not to exceed 400mg/day. (Same As: Ultram) tramadol No [place] 50 mg, 1 M emoria 10-06 Vais Stef tab, l 08:41: Route: PO, Lead 00 Drug form: TAB, Q4H, Dosing Weight 78.182, kg, PRN as needed for pain, > 50 kg, Priority: Routine, Start date: 10/06/13 2:41:00, Duration: 30 day, Stop date: 11/05/13 2:40:00Not to exceed 400mg/day. (Same As: Ultram) tramadol No Galile[place] 50 mg, 1 M emoria 10-06 Avis Stef tab, l 08:41: Route: PO, Lead 00 Drug form: TAB, Q4H, Dosing Weight 78.182, kg, PRN as needed for pain, > 50 kg, Priority: Routine, Start date: 10/06/13 2:41:00, Duration: 30 day, Stop date: 11/05/13 2:40:00Not to exceed 400mg/day. (Same As: Ultram) tramadol No [place] 50 mg, 1 M emoria 10-06 Avis Stef tab, l 08:41: Route: PO, Vinnei 00 Drug form: TAB, Q4H, Dosing Weight 78.182, kg, PRN as needed for pain, > 50 kg, Priority: Routine, Start date: 10/06/13 2:41:00, Duration: 30 day, Stop date: 11/05/13 2:40:00Not to exceed 400mg/day. (Same As: Ultram) tramadol No [place] 50 mg, 1 M emoria 10-06 Avis Stef tab, l 08:41: Route: PO, Lead 00 Drug form: TAB, Q4H, Dosing Weight 78.182, kg, PRN as needed for pain, > 50 kg, Priority: Routine, Start date: 10/06/13 2:41:00, Duration: 30 day, Stop date: 11/05/13 2:40:00Not to exceed 400mg/day. (Same As: Ultram) tramadol 0 No [place] 50 mg, 1 M emoria 10-06 Avis Stef tab, l 08:41: Route: PO, Lead 00 Drug form: TAB, Q4H, Dosing Weight 78.182, kg, PRN as needed for pain, > 50 kg, Priority: Routine, Start date: 10/06/13 2:41:00, Duration: 30 day, Stop date: 11/05/13 2:40:00Not to exceed 400mg/day. (Same As: Ultram) tramadol 2013-0 No Galile[place] 50 mg, 1 M emoria 10-06 Avis Stef tab, l 08:41: Route: PO, Lead 00 Drug form: TAB, Q4H, Dosing Weight 78.182, kg, PRN as needed for pain, > 50 kg, Priority: Routine, Start date: 10/06/13 2:41:00, Duration: 30 day, Stop date: 11/05/13 2:40:00Not to exceed 400mg/day. (Same As: Ultram) ondansetron 2013-0 No Galilea 4 mg, 2 Memoria 10-06 Avis Stef mL, Route: l 07:52: IVP, Drug Vinnie 00 form: INJ, Q8H, Dosing Weight 78.182, kg, PRN Nausea & Vomiting, Start date: 10/06/13 1:52:00, Duration: 30 day, Stop date: 11/05/13 1:51:00(Sa me as: Zofran) ondansetron 2013-0 No Galile[place] 4 mg, 2 Memoria 10-06 Avis Stef mL, Route: l 07:52: IVP, Drug Vinnie 00 form: INJ, Q8H, Dosing Weight 78.182, kg, PRN Nausea & Vomiting, Start date: 10/06/13 1:52:00, Duration: 30 day, Stop date: 11/05/13 1:51:00(Sa me as: Zofran) ondansetron 2013-0 No Galile[place] 4 mg, 2 Memoria - Avis Stef mL, Route: l 07:52: IVP, Drug Vinnie 00 form: INJ, Q8H, Dosing Weight 78.182, kg, PRN Nausea & Vomiting, Start date: 10/06/13 1:52:00, Duration: 30 day, Stop date: 11/05/13 1:51:00(Sa me as: Zofran) ondansetron 2013-0 No Galile[place] 4 mg, 2 Memoria 1-22 Avis Stef mL, Route: l 07:52: IVP, Drug Lead 00 form: INJ, Q8H, Dosing Weight 78.182, kg, PRN Nausea & Vomiting, Start date: 10/06/13 1:52:00, Duration: 30 day, Stop date: 11/05/13 1:51:00(Sa me as: Zofran) ondansetron 2014-0 No [place] 4 mg, 2 Memoria 1-22 Avis Stef mL, Route: l 07:52: IVP, Drug Vinnie 00 form: INJ, Q8H, Dosing Weight 78.182, kg, PRN Nausea & Vomiting, Start date: 10/06/13 1:52:00, Duration: 30 day, Stop date: 11/05/13 1:51:00(Sa me as: Zofran) ondansetron 2013-0 No Galile[place] 4 mg, 2 Memoria 1-22 Avis Stef mL, Route: l 07:52: IVP, Drug Lead 00 form: INJ, Q8H, Dosing Weight 78.182, kg, PRN Nausea & Vomiting, Start date: 10/06/13 1:52:00, Duration: 30 day, Stop date: 11/05/13 1:51:00(Sa me as: Zofran) ondansetron 2014-0 No [place] 4 mg, 2 Memoria 1-22 Avis Stef mL, Route: l 07:52: IVP, Drug Lead 00 form: INJ, Q8H, Dosing Weight 78.182, kg, PRN Nausea & Vomiting, Start date: 10/06/13 1:52:00, Duration: 30 day, Stop date: 11/05/13 1:51:00(Sa me as: Zofran) ondansetron 2014-0 No Galile[place] 4 mg, 2 Memoria 1-22 Avis Stef mL, Route: l 07:52: IVP, Drug Vinnie 00 form: INJ, Q8H, Dosing Weight 78.182, kg, PRN Nausea & Vomiting, Start date: 10/06/13 1:52:00, Duration: 30 day, Stop date: 11/05/13 1:51:00(Sa me as: Zofran) ondansetron 2014-0 No [place] 4 mg, 2 Memoria 1-22 Avis Stef mL, Route: l 07:52: IVP, Drug Lead 00 form: INJ, Q8H, Dosing Weight 78.182, kg, PRN Nausea & Vomiting, Start date: 10/06/13 1:52:00, Duration: 30 day, Stop date: 11/05/13 1:51:00(Sa me as: Zofran) ondansetron 2014-0 No [place] 4 mg, 2 Memoria 1-22 Avis Stef mL, Route: l 07:52: IVP, Drug Vinnie 00 form: INJ, Q8H, Dosing Weight 78.182, kg, PRN Nausea & Vomiting, Start date: 10/06/13 1:52:00, Duration: 30 day, Stop date: 11/05/13 1:51:00(Sa me as: Zofran) ondansetron 2014-0 No [place] 4 mg, 2 Memoria 1-22 Avis Stef mL, Route: l 07:52: IVP, Drug Lead 00 form: INJ, Q8H, Dosing Weight 78.182, kg, PRN Nausea & Vomiting, Start date: 10/06/13 1:52:00, Duration: 30 day, Stop date: 11/05/13 1:51:00(Sa me as: Zofran) ondansetron 2014-0 No [place] 4 mg, 2 Memoria 1-22 Avis Stef mL, Route: l 07:52: IVP, Drug Lead 00 form: INJ, Q8H, Dosing Weight 78.182, kg, PRN Nausea & Vomiting, Start date: 10/06/13 1:52:00, Duration: 30 day, Stop date: 11/05/13 1:51:00(Sa me as: Zofran) ondansetron 2014-0 No [place] 4 mg, 2 Memoria 1-22 Avis Stef mL, Route: l 07:52: IVP, Drug Vinnie 00 form: INJ, Q8H, Dosing Weight 78.182, kg, PRN Nausea & Vomiting, Start date: 10/06/13 1:52:00, Duration: 30 day, Stop date: 11/05/13 1:51:00(Sa me as: Zofran) ondansetron 2014-0 No [place] 4 mg, 2 Memoria 1-22 Avis Stef mL, Route: l 07:52: IVP, Drug Lead 00 form: INJ, Q8H, Dosing Weight 78.182, kg, PRN Nausea & Vomiting, Start date: 10/06/13 1:52:00, Duration: 30 day, Stop date: 11/05/13 1:51:00(Sa me as: Zofran) ondansetron 2013-0 No [place] 4 mg, 2 Memoria 1-22 Avis Stef mL, Route: l 07:52: IVP, Drug Vinnie 00 form: INJ, Q8H, Dosing Weight 78.182, kg, PRN Nausea & Vomiting, Start date: 10/06/13 1:52:00, Duration: 30 day, Stop date: 11/05/13 1:51:00( me as: Zofran) ondansetron 2013-0 No [place] 4 mg, 2 Memoria 1-22 Avis Stef mL, Route: l 07:52: IVP, Drug Vinnie 00 form: INJ, Q8H, Dosing Weight 78.182, kg, PRN Nausea & Vomiting, Start date: 10/06/13 1:52:00, Duration: 30 day, Stop date: 11/05/13 1:51:00( me as: Zofran) ondansetron 2013-0 No [place] 4 mg, 2 Memoria 1-22 Avis Stef mL, Route: l 07:52: IVP, Drug Lead 00 form: INJ, Q8H, Dosing Weight 78.182, kg, PRN Nausea & Vomiting, Start date: 10/06/13 1:52:00, Duration: 30 day, Stop date: 11/05/13 1:51:00(Sa me as: Zofran) ondansetron 2013-0 No [place] 4 mg, 2 Memoria 1-22 Avis Stef mL, Route: l 07:52: IVP, Drug Lead 00 form: INJ, Q8H, Dosing Weight 78.182, kg, PRN Nausea & Vomiting, Start date: 10/06/13 1:52:00, Duration: 30 day, Stop date: 11/05/13 1:51:00(Sa me as: Zofran) ondansetron 2014-0 No [place] 4 mg, 2 Memoria 1-22 Avis Stef mL, Route: l 07:52: IVP, Drug Lead 00 form: INJ, Q8H, Dosing Weight 78.182, kg, PRN Nausea & Vomiting, Start date: 10/06/13 1:52:00, Duration: 30 day, Stop date: 11/05/13 1:51:00([facility] as: Zofran) ondansetron 2014-0 No [place] 4 mg, 2 Memoria 1-22 Avis Stef mL, Route: l 07:52: IVP, Drug Vinnie 00 form: INJ, Q8H, Dosing Weight 78.182, kg, PRN Nausea & Vomiting, Start date: 10/06/13 1:52:00, Duration: 30 day, Stop date: 11/05/13 1:51:00([facility] as: Zofran) ondansetron 2013-0 No [place] 4 mg, 2 Memoria 1-22 Avis Stef mL, Route: l 07:52: IVP, Drug Vinnie 00 form: INJ, Q8H, Dosing Weight 78.182, kg, PRN Nausea & Vomiting, Start date: 10/06/13 1:52:00, Duration: 30 day, Stop date: 11/05/13 1:51:00([facility] as: Zofran) ondansetron 2014-0 No Galilea 4 mg, 2 [facility] 1-22 Avis Stef mL, Route: l 07:52: IVP, Drug Vinnie 00 form: INJ, Q8H, Dosing Weight 78.182, kg, PRN Nausea & Vomiting, Start date: 10/06/13 1:52:00, Duration: 30 day, Stop date: 11/05/13 1:51:00([facility] as: Zofran) ondansetron 2014-0 No Galilea 4 mg, 2 [facility] 1-22 Avis Stef mL, Route: l 07:52: IVP, Drug Lead 00 form: INJ, Q8H, Dosing Weight 78.182, kg, PRN Nausea & Vomiting, Start date: 10/06/13 1:52:00, Duration: 30 day, Stop date: 11/05/13 1:51:00( me as: Zofran) ondansetron 2014-0 No Galilea 4 mg, 2 Memoria 1-22 Avis Stef mL, Route: l 07:52: IVP, Drug Vinnie 00 form: INJ, Q8H, Dosing Weight 78.182, kg, PRN Nausea & Vomiting, Start date: 10/06/13 1:52:00, Duration: 30 day, Stop date: 11/05/13 1:51:00( me as: Zofran) ondansetron 2013-0 No Galile[place] 4 mg, 2 Memoria 1-22 Avis Stef mL, Route: l 07:52: IVP, Drug Vinnie 00 form: INJ, Q8H, Dosing Weight 78.182, kg, PRN Nausea & Vomiting, Start date: 10/06/13 1:52:00, Duration: 30 day, Stop date: 11/05/13 1:51:00([facility] as: Zofran) ondansetron 2013-0 No [place] 4 mg, 2 [facility]oria 1-22 Avis Stef mL, Route: l 07:52: IVP, Drug Lead 00 form: INJ, Q8H, Dosing Weight 78.182, kg, PRN Nausea & Vomiting, Start date: 10/06/13 1:52:00, Duration: 30 day, Stop date: 11/05/13 1:51:00([facility] as: Zofran) ondansetron 2013-0 No [place] 4 mg, 2 [facility] 1-22 Avis Stef mL, Route: l 07:52: IVP, Drug Lead 00 form: INJ, Q8H, Dosing Weight 78.182, kg, PRN Nausea & Vomiting, Start date: 10/06/13 1:52:00, Duration: 30 day, Stop date: 11/05/13 1:51:00( me as: Zofran) garlic oral 2013-0 No 0 [facility] a capsule -22 Refill(s) l 07:44: Lead 00 Alrex 0.2% 2013-0 No 0 [facility] ophthalmic -22 Refill(s) l suspension 07:44: Vinnie 00 garlic oral 2013-0 No 0 [facility] a capsule 1-22 Refill(s) l 07:44: Alrex 0.2% 2013- No 0 [facility] ophthalmic 1-22 Refill(s) l suspension 07:44: garlic oral 2013-0 No 0 [facility] a capsule 1-22 Refill(s) l 07:44: Alrex 0.2% No 0 [facility] ophthalmic 1-22 Refill(s) l suspension 07:44: garlic oral 2013-0 No 0 [facility] a capsule 1-22 Refill(s) l 07:44: Alrex 0.2% No 0 [facility] ophthalmic 1-22 Refill(s) l suspension 07:44: garlic oral 2013-0 No 0 [facility] a capsule 1-22 Refill(s) l 07:44: Alrex 0.2% No 0 [facility] ophthalmic 1-22 Refill(s) l suspension 07:44: garlic oral 2013-0 No 0 [facility] a capsule 1-22 Refill(s) l 07:44: Alrex 0.2% No 0 [facility] ophthalmic 1-22 Refill(s) l suspension 07:44: garlic oral 2013-0 No 0 [facility] a capsule 1-22 Refill(s) l 07:44: Alrex 0.2% 0 No 0 [facility] ophthalmic 1-22 Refill(s) l suspension 07:44: garlic oral 0 No 0 [facility] a capsule 1-22 Refill(s) l 07:44: Alrex 0.2% 2013-0 No 0 [facility] ophthalmic 1-22 Refill(s) l suspension 07:44: garlic oral 2013-0 No 0 [facility] a capsule 1-22 Refill(s) l 07:44: Alrex 0.2% 2013-0 No 0 [facility] ophthalmic 1-22 Refill(s) l suspension 07:44: garlic oral 0 No 0 [facility] a capsule 1-22 Refill(s) l 07:44: Alrex 0.2% 0 No 0 [facility] ophthalmic 1-22 Refill(s) l suspension 07:44: Vinnie garlic oral 2013-0 No 0 [facility] a capsule 1-22 Refill(s) l 07:44: Alrex 0.2% 2013-0 No 0 [facility] 1-22 Refill(s) l suspension 07:44: garlic oral 2013-0 No 0 [facility] a capsule 1-22 Refill(s) l 07:44: Alrex 0.2% No 0 [facility] ophthalmic 1-22 Refill(s) l suspension 07:44: garlic oral 0 No 0 [facility] a capsule 1-22 Refill(s) l 07:44: Alrex 0.2% 0 No 0 [facility] 1-22 Refill(s) l suspension 07:44: garlic oral 0 No 0 [facility] a capsule 1-22 Refill(s) l 07:44: Alrex 0.2% No 0 [facility] ophthal[facility] 1-22 Refill(s) l suspension 07:44: garlic oral 0 No 0 [facility] a capsule 1-22 Refill(s) l 07:44: Alrex 0.2% No 0 [facility] ophthal[facility] 1-22 Refill(s) l suspension 07:44: garlic oral 0 No 0 [facility] a capsule 1-22 Refill(s) l 07:44: Alrex 0.2% No 0 [facility] ophthal[facility] 1-22 Refill(s) l suspension 07:44: garlic oral 2013-0 No 0 [facility] a capsule 1-22 Refill(s) l 07:44: Alrex 0.2% 0 No 0 [facility] ophthalmic 1-22 Refill(s) l suspension 07:44: garlic oral 2013-0 No 0 [facility] a capsule 1-22 Refill(s) l 07:44: Alrex 0.2% No 0 [facility] ophthal[facility] 1-22 Refill(s) l suspension 07:44: garlic oral 2013-0 No 0 [facility] a capsule 1-22 Refill(s) l 07:44: Alrex 0.2% 2013-0 No 0 [facility] ophthalmic 1-22 Refill(s) l suspension 07:44: garlic oral 2013-0 No 0 [facility] a capsule 1-22 Refill(s) l 07:44: Alrex 0.2% 0 No 0 [facility] ophthal[facility] 1-22 Refill(s) l suspension 07:44: garlic oral 2013-0 No 0 [facility] a capsule 1-22 Refill(s) l 07:44: Alrex 0.2% No 0 [facility] ophthalmic 1-22 Refill(s) l suspension 07:44: garlic oral 2013-0 No 0 [facility] a capsule 1-22 Refill(s) l 07:44: Alrex 0.2% No 0 [facility] ophthalmic 1-22 Refill(s) l suspension 07:44: garlic oral 2013-0 No 0 [facility] a capsule 1-22 Refill(s) l 07:44: Alrex 0.2% 0 No 0 [facility] ophthal[facility] 1-22 Refill(s) l suspension 07:44: garlic oral 2013-0 No 0 [facility] a capsule 1-22 Refill(s) l 07:44: Alrex 0.2% 0 No 0 [facility] 1-22 Refill(s) l suspension 07:44: garlic oral 2013-0 No 0 [facility] a capsule 1-22 Refill(s) l 07:44: Alrex 0.2% 2013-0 No 0 [facility] ophthal[facility] 1-22 Refill(s) l suspension 07:44: garlic oral 2013-0 No 0 [facility] a capsule 1-22 Refill(s) l 07:44: Alrex 0.2% 2013-0 No 0 [facility] ophthal[facility] 1-22 Refill(s) l suspension 07:44: garlic oral 2013-0 No 0 [facility] a capsule 1-22 Refill(s) l 07:44: Alrex 0.2% 2013-0 No 0 [facility] 1-22 Refill(s) l suspension 07:44: cranberry 0 No 0 [facility] oral tablet 10-06 Refill(s) l 07:43: cranberry 0 No 0 [facility] oral tablet 10-06 Refill(s) l 07:43: cranberry 0 No 0 [facility] oral tablet 10-06 Refill(s) l 07:43: cranberry 0 No 0 [facility] oral tablet 10-06 Refill(s) l 07:43: cranberry 0 No 0 [facility] oral tablet 10-06 Refill(s) l 07:43: cranberry No 0 [facility] oral tablet 10-06 Refill(s) l 07:43: cranberry No 0 [facility] oral tablet 10-06 Refill(s) l 07:43: cranberry No 0 [facility] oral tablet 10-06 Refill(s) l 07:43: cranberry 0 No 0 [facility] oral tablet 10-06 Refill(s) l 07:43: cranberry 0 No 0 [facility] oral tablet 10-06 Refill(s) l 07:43: cranberry 0 No 0 [facility] oral tablet 10-06 Refill(s) l 07:43: cranberry No 0 [facility] oral tablet 10-06 Refill(s) l 07:43: cranberry 0 No 0 [facility] oral tablet 10-06 Refill(s) l 07:43: cranberry 0 No 0 [facility] oral tablet 10-06 Refill(s) l 07:43: cranberry 0 No 0 [facility] oral tablet 10-06 Refill(s) l 07:43: cranberry 0 No 0 [facility] oral tablet 10-06 Refill(s) l 07:43: cranberry 0 No 0 [facility] oral tablet 10-06 Refill(s) l 07:43: cranberry 0 No 0 [facility] oral tablet 10-06 Refill(s) l 07:43: Vinnie cranberry No 0 [facility] oral tablet 10-06 Refill(s) l 07:43: Lead 00 cranberry No 0 [facility] oral tablet 10-06 Refill(s) l 07:43: Vinnie cranberry No 0 [facility] oral tablet 10-06 Refill(s) l 07:43: Lead cranberry No 0 [facility] oral tablet 10-06 Refill(s) l 07:43: Vinnie cranberry No 0 [facility] oral tablet 10-06 Refill(s) l 07:43: Lead cranberry No 0 [facility] oral tablet 10-06 Refill(s) l 07:43: Lead cranberry No 0 [facility] oral tablet 10-06 Refill(s) l 07:43: Lead cranberry No 0 [facility] oral tablet 10-06 Refill(s) l 07:43: Vinnie cranberry No 0 [facility] oral tablet 10-06 Refill(s) l 07:43: Vinnie magnesium Yes Galilea 200 mg = 1 [facility] oxide 200 10-06 Avis Stef tab, PO, l mg oral 07:42: BID, 0 Lead tablet 00 Refill(s) potassium No 595 mg = 1 Me moria gluconate 10-06 tab, PO, l 595 mg oral 07:42: Daily, # He rmann tablet 00 100 tab, 0 Refill(s) multivitami No Galilea 0 Me moria n 10-06 Avis Stef Refill(s) l 07:42: Lead 00 Alrex 0.2% Yes Galilea 1 drp, M [facility] ophthalmic 10-06 Avis Stef BOTH EYES, l suspension 07:42: Bedtime, # H ermann 00 5 ml, 0 Refill(s) Pulmicort No Galilea 0 Semaj shashi Flexhaler 10-06 Avis Stef Refill(s) l 180 mcg/inh 07:42: Leland n inhalation 00 powder glipiZIDE No 5 mg, PO, Mem [facility] 10-06 TID, 0 l 07:42: Refill(s) Lead 00 levothyroxi Yes Galilea 75 Me moria [...] Stef tab, PO, l 07:42: Daily, # Vinnie 00 30 tab, 0 Refill(s) Norvasc 5 Yes Galilea 5 mg = 1 [facility] mg oral 10-06 Avis Stef tab, PO, l tablet 07:42: Daily, # Vinnie 00 30 tab, 0 Refill(s) calcium-vit Yes [...] mg = 1 [facility] 10 mg oral 10-06 Avis Stef tab, PO, l tablet 07:42: Bedtime, # Salma nn 00 30 tab, 0 Refill(s) Zantac 75 Yes Galilea 75 mg, PO, [facility] 10-06 Avis Stef QPM, 0 l 07:42: Refill(s) Vinnie 00 Fish Oil Yes Galilea 1,000 mg = [facility] 1000 mg 10-06 Avis Stef 1 cap, PO, l oral 07:42: Daily, 0 Vinnie capsule 00 Refill(s) Garlic Oil No 0 [facility] oral 10-06 Refill(s) l capsule 07:42: Vinnie 00 Tylenol No [facility]a 500 mg = 1 [facility] Caplet 10-06 Avis Stef tab, PO, l Extra 07:42: Q4H, Lead Strength 00 Fever, # 500 mg oral 60 tab, 0 tablet Refill(s) magnesium Yes Galilea 200 mg = 1 [facility] oxide 200 10-06 Avis Stef tab, PO, l mg oral 07:42: BID, 0 Lead tablet 00 Refill(s) potassium No 595 mg = 1 Me moria gluconate 10-06 tab, PO, l 595 mg oral 07:42: Daily, # He rmann tablet 00 100 tab, 0 Refill(s) multivitami No Galilea 0 Me moria n 10-06 Avis Stef Refill(s) l 07:42: Lead 00 Alrex 0.2% Yes Galilea 1 drp, M [facility] ophthalmic 10-06 Avis Stef BOTH EYES, l suspension 07:42: Bedtime, # H ermann 00 5 ml, 0 Refill(s) Pulmicort No Galilea 0 Semaj shashi Flexhaler 10-06 Avis Stef Refill(s) l 180 mcg/inh 07:42: Leland n inhalation 00 powder glipiZIDE No 5 mg, PO, [facility] 10-06 TID, 0 l 07:42: Refill(s) Lead 00 levothyroxi Yes Galilea 75 Me moria [...] 10-06 per week, l 07:42: 6mg the Lead 00 other 5 days a week, 0 Refill(s) hydrALAZINE Yes [facility]a 25 mg = 1 [facility] 25 mg oral 10-06 Avis Stef tab, PO, l tablet 07:42: BID, # 120 Salma nn 00 tab, 0 Refill(s) Lasix 20 mg Yes Galilea 20 mg = 1 [facility] oral tablet 10-06 Avis Stef tab, PO, l 07:42: Daily, # Vinnie 00 30 tab, 0 Refill(s) Norvasc 5 Yes [facility]a 5 mg = 1 [facility] mg oral 10-06 Avis Stef tab, PO, l tablet 07:42: Daily, # Lead 00 30 tab, 0 Refill(s) calcium-vit Yes [...] mg = 1 [facility] 10 mg oral 10-06 Avis Stef tab, PO, l tablet 07:42: Bedtime, # Salma nn 00 30 tab, 0 Refill(s) Zantac 75 Yes [facility]a 75 mg, PO, [facility] 10-06 Avis Stef QPM, 0 l 07:42: Refill(s) Vinnie 00 Fish Oil Yes [facility] 1,000 mg = [facility] 1000 mg 10-06 Avis Stef 1 cap, PO, l oral 07:42: Daily, 0 Vinnie capsule 00 Refill(s) Garlic Oil No 0 [facility] oral 10-06 Refill(s) l capsule 07:42: Lead 00 Tylenol No [facility] 500 mg = 1 [facility] Caplet 10-06 Avis Stef tab, PO, l Extra 07:42: Q4H, Vinnie Strength 00 Fever, # 500 mg oral 60 tab, 0 tablet Refill(s) magnesium Yes Galilea 200 mg = 1 [...] oria 10-06 TID, 0 l 07:42: Refill(s) Vinnie 00 levothyroxi Yes Galilea 75 Me moria [...] Stef tab, PO, l 07:42: Daily, # Vinnie 00 30 tab, 0 Refill(s) Norvasc 5 Yes [facility] 5 mg = 1 [facility] mg oral 10-06 Avis Stef tab, PO, l tablet 07:42: Daily, # Vinnie 00 30 tab, 0 Refill(s) calcium-vit Yes [...] mg = 1 [facility] 10 mg oral 10-06 Avis Stef tab, PO, l tablet 07:42: Bedtime, # Salma nn 00 30 tab, 0 Refill(s) Zantac 75 Yes [facility]a 75 mg, PO, [facility] 10-06 Avis Stef QPM, 0 l 07:42: Refill(s) Lead 00 Fish Oil Yes [facility] 1,000 mg = [facility] 1000 mg 10-06 Avis Stef 1 cap, PO, l oral 07:42: Daily, 0 Vinnie capsule 00 Refill(s) Garlic Oil No 0 [facility] oral 10-06 Refill(s) l capsule 07:42: Vinnie 00 Tylenol No [facility] 500 mg = 1 [facility] Caplet 10-06 Avis Stef tab, PO, l Extra 07:42: Q4H, Vinnie Strength 00 Fever, # 500 mg oral 60 tab, 0 tablet Refill(s) magnesium Yes [facility] 200 mg = 1 [facility] oxide 200 10-06 Avis Stef tab, PO, l mg oral 07:42: BID, 0 Lead tablet 00 Refill(s) potassium No 595 mg [...] oria 10-06 TID, 0 l 07:42: Refill(s) Vinnie 00 levothyroxi Yes Galilea 75 Me moria [...] Stef tab, PO, l 07:42: Daily, # Vinnie 00 30 tab, 0 Refill(s) Norvasc 5 Yes [facility] 5 mg = 1 [facility] mg oral 10-06 Avis Stef tab, PO, l tablet 07:42: Daily, # Lead 00 30 tab, 0 Refill(s) calcium-vit Yes [...] mg = 1 [facility] 10 mg oral 10-06 Avis Stef tab, PO, l tablet 07:42: Bedtime, # Salma nn 00 30 tab, 0 Refill(s) Zantac 75 Yes [facility] 75 mg, PO, [facility] 10-06 Avis Stef QPM, 0 l 07:42: Refill(s) Vinnie 00 Fish Oil Yes [facility] 1,000 mg = [facility] 1000 mg 10-06 Avis Stef 1 cap, PO, l oral 07:42: Daily, 0 Lead capsule 00 Refill(s) Garlic Oil No 0 [facility] oral 10-06 Refill(s) l capsule 07:42: Lead 00 Tylenol No [facility] 500 mg = 1 [facility] Caplet 10-06 Avis Stef tab, PO, l Extra 07:42: Q4H, Lead Strength 00 Fever, # 500 mg oral 60 tab, 0 tablet Refill(s) magnesium Yes [facility]a 200 mg = 1 [facility] oxide 200 10-06 Avis Stef tab, PO, l mg oral 07:42: BID, 0 Lead tablet 00 Refill(s) potassium No 595 mg = 1 Me moria gluconate 10-06 tab, PO, l 595 mg oral 07:42: Daily, # He rmann tablet 00 100 tab, 0 Refill(s) multivitami No Galilea 0 Me moria n 10-06 Avis Stef Refill(s) l 07:42: Lead 00 Alrex 0.2% Yes [facility] 1 drp, M em[facility] ophthalmic 10-06 Avis Stef BOTH EYES, l suspension 07:42: Bedtime, # H ermann 00 5 ml, 0 Refill(s) Pulmicort No [facility] 0 Semaj shashi Flexhaler 10-06 Avis Stef Refill(s) l 180 mcg/inh 07:42: Leland n inhalation 00 powder glipiZIDE No 5 mg, PO, Mem [facility] 10-06 TID, 0 l 07:42: Refill(s) Vinnie 00 levothyroxi Yes Galile[facility] 75 Me moria [...] Refill(s) Coumadin Yes 7.5mg 2x [facility] -22 per week, l 07:42: 6mg the Lead 00 other 5 days a week, 0 Refill(s) hydrALAZINE Yes [facility]a 25 mg = 1 [facility] 25 mg oral 10-06 Avis Stef tab, PO, l tablet 07:42: BID, # 120 Salma nn 00 tab, 0 Refill(s) Lasix 20 mg Yes Galilea 20 mg = 1 [facility] oral tablet 10-06 Avis Stef tab, PO, l 07:42: Daily, # Lead 00 30 tab, 0 Refill(s) Norvasc 5 Yes Galilea 5 mg = 1 [facility] mg oral 10-06 Avis Stef tab, PO, l tablet 07:42: Daily, # Vinnie 00 30 tab, 0 Refill(s) calcium-vit Yes [...] mg = 1 [facility] 10 mg oral 10-06 Avis Stef tab, PO, l tablet 07:42: Bedtime, # Salma nn 00 30 tab, 0 Refill(s) Zantac 75 Yes Galilea 75 mg, PO, [facility] 10-06 Avis Stef QPM, 0 l 07:42: Refill(s) Lead 00 Fish Oil Yes [facility] 1,000 mg = [facility] 1000 mg 10-06 Avis Stef 1 cap, PO, l oral 07:42: Daily, 0 Lead capsule 00 Refill(s) Garlic Oil No 0 [facility] oral 10-06 Refill(s) l capsule 07:42: Lead 00 Tylenol No Galile[facility] 500 mg = 1 [facility] Caplet 10-06 Avis Stef tab, PO, l Extra 07:42: Q4H, Lead Strength 00 Fever, # 500 mg oral 60 tab, 0 tablet Refill(s) magnesium Yes Galilea 200 mg = 1 [facility] oxide 200 10-06 Avis Stef tab, PO, l mg oral 07:42: BID, 0 Lead tablet 00 Refill(s) potassium No 595 mg = 1 Me moria gluconate 10-06 tab, PO, l 595 mg oral 07:42: Daily, # He rmann tablet 00 100 tab, 0 Refill(s) multivitami No Galilea 0 Me moria n 10-06 Avis Stef Refill(s) l 07:42: Lead 00 Alrex 0.2% Yes Galilea 1 drp, M em[facility] ophthalmic 10-06 Avis Stef BOTH EYES, l suspension 07:42: Bedtime, # H ermann 00 5 ml, 0 Refill(s) Pulmicort No Galilea 0 Semaj shashi Flexhaler 10-06 Avis Stef Refill(s) l 180 mcg/inh 07:42: Leland n inhalation 00 powder glipiZIDE No 5 mg, PO, Mem [facility] 10-06 TID, 0 l 07:42: Refill(s) Lead 00 levothyroxi Yes Galilea 75 Me moria [...] Refill(s) Coumadin Yes 7.5mg 2x [facility] -22 per week, l 07:42: 6mg the Lead 00 other 5 days a week, 0 Refill(s) hydrALAZINE Yes Galilea 25 mg = 1 [facility] 25 mg oral 10-06 Avis Stef tab, PO, l tablet 07:42: BID, # 120 Salma nn 00 tab, 0 Refill(s) Lasix 20 mg Yes [facility]a 20 mg = 1 [facility] oral tablet 10-06 Avis Stef tab, PO, l 07:42: Daily, # Vinnie 00 30 tab, 0 Refill(s) Norvasc 5 Yes [facility] 5 mg = 1 [facility] mg oral 10-06 Avis Stef tab, PO, l tablet 07:42: Daily, # Vinnie 00 30 tab, 0 Refill(s) calcium-vit Yes Glailea 1 tab, [facility] corona D 500 10-06 Avsi Stef CHEW, l mg-400 intl 07:42: Daily, # He rmann units oral 00 60 tab, 0 tablet, Refill(s) chewable Vitamin Yes Galilea 1,000 [facility] B-12 1000 10-06 Avis Stef microgram l mcg oral 07:42: = 1 tab, Salma nn tablet 00 PO, Daily, # 30 tab, 0 Refill(s) montelukast Yes Galilea 10 mg = 1 [facility] 10 mg oral 10-06 Avis Stef tab, PO, l tablet 07:42: Bedtime, # Salma nn 00 30 tab, 0 Refill(s) Zantac 75 Yes Galilea 75 mg, PO, [facility] 10-06 Avis Stef QPM, 0 l 07:42: Refill(s) Vinnie 00 Fish Oil Yes [facility]a 1,000 mg = [facility] 1000 mg 10-06 Avis Stef 1 cap, PO, l oral 07:42: Daily, 0 Vinnie capsule 00 Refill(s) Garlic Oil No 0 [facility] oral 10-06 Refill(s) l capsule 07:42: Vinnie 00 Tylenol No [facility] 500 mg = 1 [facility] Caplet 10-06 Avis Stef tab, PO, l Extra 07:42: Q4H, Vinnie Strength 00 Fever, # 500 mg oral 60 tab, 0 tablet Refill(s) magnesium Yes Galilea 200 mg = 1 [...] n 10-06 Avis Stef Refill(s) l 07:42: Lead 00 Alrex 0.2% Yes Galilea 1 drp, M emoria ophthalmic 10-06 Avis Stef BOTH EYES, l suspension 07:42: Bedtime, # H ermann 00 5 ml, 0 Refill(s) Pulmicort No Galilea 0 Semaj shashi Flexhaler 10-06 Avis Stef Refill(s) l 180 mcg/inh 07:42: Leland n inhalation 00 powder glipiZIDE No 5 mg, PO, Mem oria 10-06 TID, 0 l 07:42: Refill(s) Lead 00 levothyroxi Yes Galilea 75 Me moria [...] Stef tab, PO, l 07:42: Daily, # Lead 00 30 tab, 0 Refill(s) Norvasc 5 Yes Galilea 5 mg = 1 [facility] mg oral 10-06 Avis Stef tab, PO, l tablet 07:42: Daily, # Vinnie 00 30 tab, 0 Refill(s) calcium-vit Yes [...] mg = 1 [facility] 10 mg oral 10-06 Avis Stef tab, PO, l tablet 07:42: Bedtime, # Salma nn 00 30 tab, 0 Refill(s) Zantac 75 Yes Galilea 75 mg, PO, [facility] 10-06 Avis Stef QPM, 0 l 07:42: Refill(s) Vinnie 00 Fish Oil Yes Galilea 1,000 mg = [facility] 1000 mg 10-06 Avis Stef 1 cap, PO, l oral 07:42: Daily, 0 Lead capsule 00 Refill(s) Garlic Oil No 0 [facility] oral 10-06 Refill(s) l capsule 07:42: Lead 00 Tylenol No Galilea 500 mg = 1 [facility] Caplet 10-06 Avis Stef tab, PO, l Extra 07:42: Q4H, Vinnie Strength 00 Fever, # 500 mg oral 60 tab, 0 tablet Refill(s) magnesium Yes Galilea 200 mg = 1 [...] n 10-06 Avis Stef Refill(s) l 07:42: Lead 00 Alrex 0.2% Yes Galilea 1 drp, M emoria ophthalmic 10-06 Avis Stef BOTH EYES, l suspension 07:42: Bedtime, # H ermann 00 5 ml, 0 Refill(s) Pulmicort No Galilea 0 Semaj shashi Flexhaler 10-06 Avis Stef Refill(s) l 180 mcg/inh 07:42: Leland n inhalation 00 powder glipiZIDE No 5 mg, PO, Mem oria 10-06 TID, 0 l 07:42: Refill(s) Lead 00 levothyroxi Yes Galilea 75 Me moria [...] Refill(s) Coumadin Yes 7.5mg 2x Mem[facility] - per week, l 07:42: 6mg the Vinnie [...] Stef tab, PO, l 07:42: Daily, # Vinnie 00 30 tab, 0 Refill(s) Norvasc 5 Yes Galilea 5 mg = 1 [facility] mg oral 10-06 Avis Stef tab, PO, l tablet 07:42: Daily, # Vinnie 00 30 tab, 0 Refill(s) calcium-vit Yes [...] mg = 1 [facility] 10 mg oral 10-06 Avis Stef tab, PO, l tablet 07:42: Bedtime, # Salma nn 00 30 tab, 0 Refill(s) Zantac 75 Yes Galilea 75 mg, PO, [facility] 10-06 Avis Stef QPM, 0 l 07:42: Refill(s) Lead 00 Fish Oil Yes Galilea 1,000 mg = [facility] 1000 mg 10-06 Avis Stef 1 cap, PO, l oral 07:42: Daily, 0 Vinnie capsule 00 Refill(s) Garlic Oil No 0 Mem[facility] oral 10-06 Refill(s) l capsule 07:42: Vinnie 00 Tylenol No Galilea 500 mg = 1 [facility] Caplet 10-06 Avis Stef tab, PO, l Extra 07:42: Q4H, Lead Strength 00 Fever, # 500 mg oral 60 tab, 0 tablet Refill(s) magnesium Yes Galilea 200 mg = 1 [...] n 10-06 Avis Stef Refill(s) l 07:42: Lead 00 Alrex 0.2% Yes Galilea 1 drp, M emoria ophthalmic 10-06 Avis Stef BOTH EYES, l suspension 07:42: Bedtime, # H ermann 00 5 ml, 0 Refill(s) Pulmicort No Galilea 0 Semaj shashi Flexhaler 10-06 Avis Stef Refill(s) l 180 mcg/inh 07:42: Leland n inhalation 00 powder glipiZIDE No 5 mg, PO, Mem oria 10-06 TID, 0 l 07:42: Refill(s) Vinnie 00 levothyroxi Yes Galilea 75 Me moria [...] Stef tab, PO, l 07:42: Daily, # Lead 00 30 tab, 0 Refill(s) Norvasc 5 Yes Galilea 5 mg = 1 [facility] mg oral 10-06 Avis Stef tab, PO, l tablet 07:42: Daily, # Vinnie 00 30 tab, 0 Refill(s) calcium-vit Yes [...] mg = 1 [facility] 10 mg oral 10-06 Avis Stef tab, PO, l tablet 07:42: Bedtime, # Salma nn 00 30 tab, 0 Refill(s) Zantac 75 Yes Galilea 75 mg, PO, [facility] 10-06 Avis Stef QPM, 0 l 07:42: Refill(s) Vinnie 00 Fish Oil Yes Galilea 1,000 mg = [facility] 1000 mg 10-06 Avis Stef 1 cap, PO, l oral 07:42: Daily, 0 Lead capsule 00 Refill(s) Garlic Oil No 0 [facility] oral 10-06 Refill(s) l capsule 07:42: Lead 00 Tylenol No Galilea 500 mg = 1 [facility] Caplet 10-06 Avis Stef tab, PO, l Extra 07:42: Q4H, Vinnie Strength 00 Fever, # 500 mg oral 60 tab, 0 tablet Refill(s) magnesium Yes Galilea 200 mg = 1 [facility] oxide 200 10-06 Avis Stef tab, PO, l mg oral 07:42: BID, 0 Lead tablet 00 Refill(s) potassium No 595 mg = 1 Me moria gluconate 10-06 tab, PO, l 595 mg oral 07:42: Daily, # He rmann tablet 00 100 tab, 0 Refill(s) multivitami No Galilea 0 Me moria n 10-06 Avis Stef Refill(s) l 07:42: Lead 00 Alrex 0.2% Yes Galilea 1 drp, M emoria ophthalmic 10-06 Avis Stef BOTH EYES, l suspension 07:42: Bedtime, # H ermann 00 5 ml, 0 Refill(s) Pulmicort No Galilea 0 Semaj shashi Flexhaler 10-06 Avis Stef Refill(s) l 180 mcg/inh 07:42: Leland n inhalation 00 powder glipiZIDE No 5 mg, PO, Mem oria 10-06 TID, 0 l 07:42: Refill(s) Lead 00 levothyroxi Yes Galilea 75 Me moria [...] Stef tab, PO, l 07:42: Daily, # Lead 00 30 tab, 0 Refill(s) Norvasc 5 Yes Galilea 5 mg = 1 [facility] mg oral 10-06 Avis Stef tab, PO, l tablet 07:42: Daily, # Lead 00 30 tab, 0 Refill(s) calcium-vit Yes [...] mg = 1 [facility] 10 mg oral 10-06 Avis Stef tab, PO, l tablet 07:42: Bedtime, # Salma nn 00 30 tab, 0 Refill(s) Zantac 75 Yes Galilea 75 mg, PO, [facility] 10-06 Avis Stef QPM, 0 l 07:42: Refill(s) Vinnie 00 Fish Oil Yes Galilea 1,000 mg = [facility] 1000 mg 10-06 Avis Stef 1 cap, PO, l oral 07:42: Daily, 0 Lead capsule 00 Refill(s) Garlic Oil No 0 Memoria oral 10-06 Refill(s) l capsule 07:42: Lead 00 Tylenol No Galile[facility] 500 mg = 1 [facility] Caplet 10-06 Avis Stef tab, PO, l Extra 07:42: Q4H, Lead Strength 00 Fever, # 500 mg oral 60 tab, 0 tablet Refill(s) magnesium Yes Galilea 200 mg = 1 [...] n 10-06 Avis Stef Refill(s) l 07:42: Lead 00 Alrex 0.2% Yes Galilea 1 drp, M emoria ophthalmic 10-06 Avis Stef BOTH EYES, l suspension 07:42: Bedtime, # H ermann 00 5 ml, 0 Refill(s) Pulmicort No Galilea 0 Semaj shashi Flexhaler 10-06 Avis Stef Refill(s) l 180 mcg/inh 07:42: Leland n inhalation 00 powder glipiZIDE No 5 mg, PO, Mem oria 10-06 TID, 0 l 07:42: Refill(s) Lead 00 levothyroxi Yes Galilea 75 Me moria [...] 10-06 per week, l 07:42: 6mg the Lead 00 other 5 days a week, 0 Refill(s) hydrALAZINE Yes Galilea 25 mg = 1 [facility] 25 mg oral 10-06 Avis Stef tab, PO, l tablet 07:42: BID, # 120 Salma nn 00 tab, 0 Refill(s) Lasix 20 mg Yes Galilea 20 mg = 1 [facility] oral tablet 10-06 Avis Stef tab, PO, l 07:42: Daily, # Vinnie 00 30 tab, 0 Refill(s) Norvasc 5 Yes Galilea 5 mg = 1 [facility] mg oral 10-06 Avis Stef tab, PO, l tablet 07:42: Daily, # Lead 00 30 tab, 0 Refill(s) calcium-vit Yes [...] mg = 1 [facility] 10 mg oral 10-06 Avis Stef tab, PO, l tablet 07:42: Bedtime, # Salma nn 00 30 tab, 0 Refill(s) Zantac 75 Yes Galilea 75 mg, PO, [facility] 10-06 Avis Stef QPM, 0 l 07:42: Refill(s) Vinnie 00 Fish Oil Yes [facility]a 1,000 mg = [facility] 1000 mg 10-06 Avis Stef 1 cap, PO, l oral 07:42: Daily, 0 Lead capsule 00 Refill(s) Garlic Oil No 0 Mem[facility] oral 10-06 Refill(s) l capsule 07:42: Lead 00 Tylenol No Galilea 500 mg = 1 [facility] Caplet 10-06 Avis Stef tab, PO, l Extra 07:42: Q4H, Vinnie Strength 00 Fever, # 500 mg oral 60 tab, 0 tablet Refill(s) magnesium Yes Galilea 200 mg = 1 [facility] oxide 200 10-06 Avis Stef tab, PO, l mg oral 07:42: BID, 0 Lead tablet 00 Refill(s) potassium No 595 mg = 1 Me moria gluconate 10-06 tab, PO, l 595 mg oral 07:42: Daily, # He rmann tablet 00 100 tab, 0 Refill(s) multivitami No Galilea 0 Me moria n 10-06 Avis Stef Refill(s) l 07:42: Lead 00 Alrex 0.2% Yes Galilea 1 drp, M emoria ophthalmic 10-06 Avis Stef BOTH EYES, l suspension 07:42: Bedtime, # H ermann 00 5 ml, 0 Refill(s) Pulmicort No Galilea 0 Semaj shashi Flexhaler 10-06 Avis Stef Refill(s) l 180 mcg/inh 07:42: Leland n inhalation 00 powder glipiZIDE No 5 mg, PO, Mem oria 10-06 TID, 0 l 07:42: Refill(s) Lead 00 levothyroxi Yes Galilea 75 Me moria [...] 10-06 per week, l 07:42: 6mg the Lead 00 other 5 days a week, 0 Refill(s) hydrALAZINE Yes Galilea 25 mg = 1 [facility] 25 mg oral 10-06 Avis Stef tab, PO, l tablet 07:42: BID, # 120 Slama nn 00 tab, 0 Refill(s) Lasix 20 mg Yes Galile[facility] 20 mg = 1 [facility] oral tablet 10-06 Avis Stef tab, PO, l 07:42: Daily, # Vinnie 00 30 tab, 0 Refill(s) Norvasc 5 Yes Galilea 5 mg = 1 [facility] mg oral 10-06 Avis Stef tab, PO, l tablet 07:42: Daily, # Lead 00 30 tab, 0 Refill(s) calcium-vit Yes [...] mg = 1 [facility] 10 mg oral 10-06 Avis Stef tab, PO, l tablet 07:42: Bedtime, # Salma nn 00 30 tab, 0 Refill(s) Zantac 75 Yes Galilea 75 mg, PO, [facility] 10-06 Avis Stef QPM, 0 l 07:42: Refill(s) Vinnie 00 Fish Oil Yes Galilea 1,000 mg = [facility] 1000 mg 10-06 Avis Stef 1 cap, PO, l oral 07:42: Daily, 0 Lead capsule 00 Refill(s) Garlic Oil No 0 Memoria oral 10-06 Refill(s) l capsule 07:42: Lead 00 Tylenol No Galilea 500 mg = 1 [facility] Caplet 10-06 Avis Stef tab, PO, l Extra 07:42: Q4H, Lead Strength 00 Fever, # 500 mg oral 60 tab, 0 tablet Refill(s) magnesium Yes Galilea 200 mg = 1 [...] glipiZIDE No 5 mg, PO, Mem oria 1-22 TID, 0 l 07:42: Refill(s) Lead 00 levothyroxi Yes Galilea 75 Me moria [...] 10-06 per week, l 07:42: 6mg the Lead 00 other 5 days a week, 0 Refill(s) hydrALAZINE Yes Galilea 25 mg = 1 [facility] 25 mg oral 10-06 Avis Stef tab, PO, l tablet 07:42: BID, # 120 Salma nn 00 tab, 0 Refill(s) Lasix 20 mg Yes Galilea 20 mg = 1 [facility] oral tablet 10-06 Avis Stef tab, PO, l 07:42: Daily, # Lead 00 30 tab, 0 Refill(s) Norvasc 5 Yes Galile[facility] 5 mg = 1 [facility] mg oral 10-06 Avis Stef tab, PO, l tablet 07:42: Daily, # Vinnie 00 30 tab, 0 Refill(s) calcium-vit Yes [...] Daily, # 30 tab, 0 Refill(s) montelukast 2014-0 Yes Galilea 10 mg = 1 Memoria 10 mg oral 10-06 Avis Stef tab, PO, l tablet 07:42: Bedtime, # Salma nn 00 30 tab, 0 Refill(s) Zantac 75 Yes Galilea 75 mg, PO, Memoria 10-06 Avis Stef QPM, 0 l 07:42: Refill(s) Lead 00 Fish Oil Yes Galilea 1,000 mg = Memoria 1000 mg 10-06 Avis Stef 1 cap, PO, l oral 07:42: Daily, 0 Lead capsule 00 Refill(s) Garlic Oil No 0 Memoria oral 10-06 Refill(s) l capsule 07:42: Lead 00 Tylenol No Galilea 500 mg = 1 Memoria Caplet 10-06 Avis Stef tab, PO, l Extra 07:42: Q4H, Vinnie Strength 00 Fever, # 500 mg oral 60 tab, 0 tablet Refill(s) magnesium Yes Galilea 200 mg = 1 [...] oria 10-06 TID, 0 l 07:42: Refill(s) Vinnie 00 levothyroxi Yes Galilea 75 Me moria [...] 10-06 per week, l 07:42: 6mg the Lead 00 other 5 days a week, 0 Refill(s) hydrALAZINE Yes Galilea 25 mg = 1 Memoria 25 mg oral 10-06 Avis Stef tab, PO, l tablet 07:42: BID, # 120 Salma nn 00 tab, 0 Refill(s) Lasix 20 mg Yes Galilea 20 mg = 1 Memoria oral tablet 10-06 Avis Stef tab, PO, l 07:42: Daily, # Lead 00 30 tab, 0 Refill(s) Norvasc 5 Yes Galilea 5 mg = 1 Memoria mg oral 10-06 Avis Stef tab, PO, l tablet 07:42: Daily, # Lead 00 30 tab, 0 Refill(s) calcium-vit Yes [...] mg = 1 Memoria 10 mg oral 10-06 Avis Stef tab, PO, l tablet 07:42: Bedtime, # Salma nn 00 30 tab, 0 Refill(s) Zantac 75 Yes Galilea 75 mg, PO, Memoria 10-06 Avis Stef QPM, 0 l 07:42: Refill(s) Vinnie 00 Fish Oil Yes Galilea 1,000 mg = Memoria 1000 mg 10-06 Avis Stef 1 cap, PO, l oral 07:42: Daily, 0 Lead capsule 00 Refill(s) Garlic Oil No 0 Memoria oral 10-06 Refill(s) l capsule 07:42: Lead 00 Tylenol No Galilea 500 mg = 1 [facility] Caplet 10-06 Avis Stef tab, PO, l Extra 07:42: Q4H, Lead Strength 00 Fever, # 500 mg oral 60 tab, 0 tablet Refill(s) magnesium Yes Galilea 200 mg = 1 [...] n 10-06 Avis Stef Refill(s) l 07:42: Lead 00 Alrex 0.2% Yes Galilea 1 drp, M emoria ophthalmic 10-06 Avis Stef BOTH EYES, l suspension 07:42: Bedtime, # H ermann 00 5 ml, 0 Refill(s) Pulmicort No Galilea 0 Semaj shashi Flexhaler 10-06 Avis Stef Refill(s) l 180 mcg/inh 07:42: Leland n inhalation 00 powder glipiZIDE No 5 mg, PO, Mem oria 10-06 TID, 0 l 07:42: Refill(s) Lead 00 levothyroxi Yes Galilea 75 Me moria [...] Stef tab, PO, l 07:42: Daily, # Lead 00 30 tab, 0 Refill(s) Norvasc 5 Yes Galilea 5 mg = 1 Memoria mg oral 10-06 Avis Stef tab, PO, l tablet 07:42: Daily, # Lead 00 30 tab, 0 Refill(s) calcium-vit Yes [...] mg = 1 Memoria 10 mg oral 10-06 Avis Stef tab, PO, l tablet 07:42: Bedtime, # Salma nn 00 30 tab, 0 Refill(s) Zantac 75 Yes Galilea 75 mg, PO, Memoria 10-06 Avis Stef QPM, 0 l 07:42: Refill(s) Vinnie 00 Fish Oil Yes Galilea 1,000 mg = Memoria 1000 mg 10-06 Avis Stef 1 cap, PO, l oral 07:42: Daily, 0 Lead capsule 00 Refill(s) Garlic Oil No 0 Memoria oral 10-06 Refill(s) l capsule 07:42: Vinnie 00 Tylenol No Galilea 500 mg = 1 Memoria Caplet 10-06 Avis Stef tab, PO, l Extra 07:42: Q4H, Lead Strength 00 Fever, # 500 mg oral 60 tab, 0 tablet Refill(s) magnesium Yes Galilea 200 mg = 1 [...] n 10-06 Avis Stef Refill(s) l 07:42: Lead 00 Alrex 0.2% Yes Galilea 1 drp, M emoria ophthalmic 10-06 Avis Stef BOTH EYES, l suspension 07:42: Bedtime, # H ermann 00 5 ml, 0 Refill(s) Pulmicort No Galilea 0 Semaj shashi Flexhaler 10-06 Avis Stef Refill(s) l 180 mcg/inh 07:42: Leland n inhalation 00 powder glipiZIDE No 5 mg, PO, Mem oria 10-06 TID, 0 l 07:42: Refill(s) Lead 00 levothyroxi Yes Galilea 75 Me moria [...] Stef tab, PO, l 07:42: Daily, # Vinnie 00 30 tab, 0 Refill(s) Norvasc 5 Yes Galilea 5 mg = 1 Memoria mg oral 10-06 Avis Stef tab, PO, l tablet 07:42: Daily, # Lead 00 30 tab, 0 Refill(s) calcium-vit Yes [...] mg = 1 Memoria 10 mg oral 10-06 Avis Stef tab, PO, l tablet 07:42: Bedtime, # Salma nn 00 30 tab, 0 Refill(s) Zantac 75 Yes Galilea 75 mg, PO, Memoria 10-06 Avis Stef QPM, 0 l 07:42: Refill(s) Lead 00 Fish Oil Yes Galilea 1,000 mg = Memoria 1000 mg 10-06 Avis Stef 1 cap, PO, l oral 07:42: Daily, 0 Lead capsule 00 Refill(s) Garlic Oil No 0 Memoria oral 10-06 Refill(s) l capsule 07:42: Lead 00 Tylenol No Galilea 500 mg = 1 Memoria Caplet 10-06 Avis Stef tab, PO, l Extra 07:42: Q4H, Vinnie Strength 00 Fever, # 500 mg oral 60 tab, 0 tablet Refill(s) magnesium Yes Galilea 200 mg = 1 Memoria oxide 200 10-06 Avis Stef tab, PO, l mg oral 07:42: BID, 0 Lead tablet 00 Refill(s) potassium No 595 mg = 1 Me moria gluconate 10-06 tab, PO, l 595 mg oral 07:42: Daily, # He rmann tablet 00 100 tab, 0 Refill(s) multivitami No Galilea 0 Me moria n 10-06 Avis Stef Refill(s) l 07:42: Lead 00 Alrex 0.2% Yes Galilea 1 drp, M emoria ophthalmic 10-06 Avis Stef BOTH EYES, l suspension 07:42: Bedtime, # H ermann 00 5 ml, 0 Refill(s) Pulmicort No Galilea 0 Semaj shashi Flexhaler 10-06 Avis Stef Refill(s) l 180 mcg/inh 07:42: Leland n inhalation 00 powder glipiZIDE No 5 mg, PO, Mem oria 10-06 TID, 0 l 07:42: Refill(s) Lead 00 levothyroxi Yes Galilea 75 Me moria [...] Refill(s) Coumadin Yes 7.5mg 2x Memor ia -22 per week, l 07:42: 6mg the Vinnie [...] Stef tab, PO, l 07:42: Daily, # Lead 00 30 tab, 0 Refill(s) Norvasc 5 Yes Galilea 5 mg = 1 Memoria mg oral 10-06 Avis Stef tab, PO, l tablet 07:42: Daily, # Vinnie 00 30 tab, 0 Refill(s) calcium-vit Yes [...] mg = 1 Memoria 10 mg oral 10-06 Avis Stef tab, PO, l tablet 07:42: Bedtime, # Salma nn 00 30 tab, 0 Refill(s) Zantac 75 Yes Galilea 75 mg, PO, Memoria 10-06 Avis Stef QPM, 0 l 07:42: Refill(s) Lead 00 Fish Oil Yes Galilea 1,000 mg = Memoria 1000 mg 10-06 Avis Stef 1 cap, PO, l oral 07:42: Daily, 0 Vinnie capsule 00 Refill(s) Garlic Oil No 0 Memoria oral 10-06 Refill(s) l capsule 07:42: Lead 00 Tylenol No Galilea 500 mg = 1 Memoria Caplet 10-06 Avis Stef tab, PO, l Extra 07:42: Q4H, Lead Strength 00 Fever, # 500 mg oral 60 tab, 0 tablet Refill(s) magnesium Yes Galilea 200 mg = 1 [...] n 10-06 Avis Stef Refill(s) l 07:42: Lead 00 Alrex 0.2% Yes Galilea 1 drp, M emoria ophthalmic 10-06 Avis Stef BOTH EYES, l suspension 07:42: Bedtime, # H ermann 00 5 ml, 0 Refill(s) Pulmicort No Galilea 0 Semaj shashi Flexhaler 10-06 Avis Stef Refill(s) l 180 mcg/inh 07:42: Leland n inhalation 00 powder glipiZIDE No 5 mg, PO, Mem oria 10-06 TID, 0 l 07:42: Refill(s) Lead 00 levothyroxi Yes Galilea 75 Me moria [...] Stef tab, PO, l 07:42: Daily, # Vinnie 00 30 tab, 0 Refill(s) Norvasc 5 Yes Galilea 5 mg = 1 Memoria mg oral 10-06 Avis Stef tab, PO, l tablet 07:42: Daily, # Vinnie 00 30 tab, 0 Refill(s) calcium-vit Yes [...] mg = 1 Memoria 10 mg oral 10-06 Avis Stef tab, PO, l tablet 07:42: Bedtime, # Salma nn 00 30 tab, 0 Refill(s) Zantac 75 Yes Galilea 75 mg, PO, Memoria 10-06 Avis Stef QPM, 0 l 07:42: Refill(s) Vinnie 00 Fish Oil Yes Galilea 1,000 mg = Memoria 1000 mg 10-06 Avis Stef 1 cap, PO, l oral 07:42: Daily, 0 Vinnie capsule 00 Refill(s) Garlic Oil No 0 Memoria oral 10-06 Refill(s) l capsule 07:42: Lead 00 Tylenol No Galilea 500 mg = 1 Memoria Caplet 10-06 Avis Stef tab, PO, l Extra 07:42: Q4H, Vinnie Strength 00 Fever, # 500 mg oral 60 tab, 0 tablet Refill(s) magnesium Yes Galilea 200 mg = 1 Memoria oxide 200 10-06 Avis Stef tab, PO, l mg oral 07:42: BID, 0 Lead tablet 00 Refill(s) potassium No 595 mg = 1 Me moria gluconate 10-06 tab, PO, l 595 mg oral 07:42: Daily, # He rmann tablet 00 100 tab, 0 Refill(s) multivitami No Galilea 0 Me moria n 10-06 Avis Stef Refill(s) l 07:42: Vinnie 00 Alrex 0.2% Yes Galilea 1 drp, M emoria ophthalmic 10-06 Avis Finch BOTH EYES, l suspension 07:42: Bedtime, # H ermann 00 5 ml, 0 Refill(s) Pulmicort No Galilea 0 Semaj shashi Flexhaler 10-06 Avis Stef Refill(s) l 180 mcg/inh 07:42: Leland n inhalation 00 powder glipiZIDE No 5 mg, PO, Mem oria 10-06 TID, 0 l 07:42: Refill(s) Vinnie 00 levothyroxi Yes Galilea 75 Me moria ne 75 mcg 10-06 Avis Finch microgram l (0.075 mg) 07:42: = 1 [...] 10-06 per week, l 07:42: 6mg the Lead 00 other 5 days a week, 0 Refill(s) hydrALAZINE Yes Galilea 25 mg = 1 Memoria 25 mg oral 10-06 Avis Stef tab, PO, l tablet 07:42: BID, # 120 Salma nn 00 tab, 0 Refill(s) Lasix 20 mg Yes Galilea 20 mg = 1 Memoria oral tablet 10-06 Avis Stef tab, PO, l 07:42: Daily, # Lead 00 30 tab, 0 Refill(s) Norvasc 5 Yes Galilea 5 mg = 1 Memoria mg oral 10-06 Avis Stef tab, PO, l tablet 07:42: Daily, # Lead 00 30 tab, 0 Refill(s) calcium-vit Yes [...] mg = 1 Memoria 10 mg oral 10-06 Avis Stef tab, PO, l tablet 07:42: Bedtime, # Salma nn 00 30 tab, 0 Refill(s) Zantac 75 Yes Galilea 75 mg, PO, Memoria 10-06 Avsi Stef QPM, 0 l 07:42: Refill(s) Lead 00 Fish Oil Yes Galilea 1,000 mg = Memoria 1000 mg 10-06 Avis Stef 1 cap, PO, l oral 07:42: Daily, 0 Vinnie capsule 00 Refill(s) Garlic Oil No 0 Memoria oral 10-06 Refill(s) l capsule 07:42: Vinnie 00 Tylenol No Galilea 500 mg = 1 Memoria Caplet 10-06 Avis Stef tab, PO, l Extra 07:42: Q4H, Vinnie Strength 00 Fever, # 500 mg oral 60 tab, 0 tablet Refill(s) magnesium Yes Galilea 200 mg = 1 Memoria oxide 200 10-06 Avis Stef tab, PO, l mg oral 07:42: BID, 0 Lead tablet 00 Refill(s) potassium No 595 mg = 1 Me moria gluconate 10-06 tab, PO, l 595 mg oral 07:42: Daily, # He rmann tablet 00 100 tab, 0 Refill(s) multivitami No Galilea 0 Me moria n 10-06 Avis Stef Refill(s) l 07:42: Lead 00 Alrex 0.2% Yes Galilea 1 drp, M emoria ophthalmic 10-06 Avis Stef BOTH EYES, l suspension 07:42: Bedtime, # H ermann 00 5 ml, 0 Refill(s) Pulmicort No Galilea 0 Semaj shashi Flexhaler 10-06 Avis Stef Refill(s) l 180 mcg/inh 07:42: Leland n inhalation 00 powder glipiZIDE No 5 mg, PO, Mem oria 10-06 TID, 0 l 07:42: Refill(s) Lead 00 levothyroxi Yes Galilea 75 Me moria [...] Refill(s) Coumadin Yes 7.5mg 2x Memor ia 22 per week, l 07:42: 6mg the Vinnie [...] Stef tab, PO, l 07:42: Daily, # Vinnie 00 30 tab, 0 Refill(s) Norvasc 5 Yes Galilea 5 mg = 1 Memoria mg oral 10-06 Avis Stef tab, PO, l tablet 07:42: Daily, # Vinnie 00 30 tab, 0 Refill(s) calcium-vit Yes [...] mg = 1 Memoria 10 mg oral 10-06 Avis Stef tab, PO, l tablet 07:42: Bedtime, # Salma nn 00 30 tab, 0 Refill(s) Zantac 75 Yes Galilea 75 mg, PO, Memoria 10-06 Avis Stef QPM, 0 l 07:42: Refill(s) Lead 00 Fish Oil Yes Galilea 1,000 mg = Memoria 1000 mg 10-06 Avis Stef 1 cap, PO, l oral 07:42: Daily, 0 Lead capsule 00 Refill(s) Garlic Oil No 0 Memoria oral 10-06 Refill(s) l capsule 07:42: Lead 00 Tylenol No Galilea 500 mg = 1 Memoria Caplet 10-06 Avis Stef tab, PO, l Extra 07:42: Q4H, Vinnie Strength 00 Fever, # 500 mg oral 60 tab, 0 tablet Refill(s) magnesium Yes Galilea 200 mg = 1 [...] n 10-06 Avis Stef Refill(s) l 07:42: Lead 00 Alrex 0.2% Yes Galilea 1 drp, M emoria ophthalmic 10-06 Avis Stef BOTH EYES, l suspension 07:42: Bedtime, # H ermann 00 5 ml, 0 Refill(s) Pulmicort No Galilea 0 Semaj shashi Flexhaler 10-06 Avis Stef Refill(s) l 180 mcg/inh 07:42: Leland n inhalation 00 powder glipiZIDE No 5 mg, PO, Mem oria 10-06 TID, 0 l 07:42: Refill(s) Lead 00 levothyroxi Yes Galilea 75 Me moria [...] 10-06 per week, l 07:42: 6mg the Lead 00 other 5 days a week, 0 Refill(s) hydrALAZINE Yes Galilea 25 mg = 1 Memoria 25 mg oral 10-06 Avis Stef tab, PO, l tablet 07:42: BID, # 120 Salma nn 00 tab, 0 Refill(s) Lasix 20 mg Yes Galilea 20 mg = 1 Memoria oral tablet 10-06 Avis Stef tab, PO, l 07:42: Daily, # Vinnie 00 30 tab, 0 Refill(s) Norvasc 5 Yes Galilea 5 mg = 1 Memoria mg oral 10-06 Avis Stef tab, PO, l tablet 07:42: Daily, # Vinnie 00 30 tab, 0 Refill(s) calcium-vit Yes [...] mg = 1 Memoria 10 mg oral 10-06 Avis Stef tab, PO, l tablet 07:42: Bedtime, # Salma nn 00 30 tab, 0 Refill(s) Zantac 75 Yes Galilea 75 mg, PO, Memoria 10-06 Avis Stef QPM, 0 l 07:42: Refill(s) Lead 00 Fish Oil Yes Galilea 1,000 mg = Memoria 1000 mg 10-06 Avis Stef 1 cap, PO, l oral 07:42: Daily, 0 Vinnie capsule 00 Refill(s) Garlic Oil No 0 Memoria oral 10-06 Refill(s) l capsule 07:42: Vinnie 00 Tylenol No Galilea 500 mg = 1 Memoria Caplet 10-06 Avis Stef tab, PO, l Extra 07:42: Q4H, Vinnie Strength 00 Fever, # 500 mg oral 60 tab, 0 tablet Refill(s) magnesium Yes Galilea 200 mg = 1 Memoria oxide 200 10-06 Avis Stef tab, PO, l mg oral 07:42: BID, 0 Lead tablet 00 Refill(s) potassium No 595 mg = 1 Me moria gluconate 10-06 tab, PO, l 595 mg oral 07:42: Daily, # He rmann tablet 00 100 tab, 0 Refill(s) multivitami No Galilea 0 Me moria n 10-06 Avis Stef Refill(s) l 07:42: Lead 00 Alrex 0.2% Yes Galilea 1 drp, M emoria ophthalmic 10-06 Avis Stef BOTH EYES, l suspension 07:42: Bedtime, # H ermann 00 5 ml, 0 Refill(s) Pulmicort No Galilea 0 Semaj shashi Flexhaler 10-06 Avis Stef Refill(s) l 180 mcg/inh 07:42: Leland n inhalation 00 powder glipiZIDE No 5 mg, PO, Mem oria 10-06 TID, 0 l 07:42: Refill(s) Vinnie 00 levothyroxi Yes Galilea 75 Me moria [...] 10-06 per week, l 07:42: 6mg the Lead 00 other 5 days a week, 0 Refill(s) hydrALAZINE Yes Galilea 25 mg = 1 Memoria 25 mg oral 10-06 Avis Stef tab, PO, l tablet 07:42: BID, # 120 Salma nn 00 tab, 0 Refill(s) Lasix 20 mg Yes Galilea 20 mg = 1 Memoria oral tablet 10-06 Avis Stef tab, PO, l 07:42: Daily, # Lead 00 30 tab, 0 Refill(s) Norvasc 5 Yes Galilea 5 mg = 1 Memoria mg oral 10-06 Avis Stef tab, PO, l tablet 07:42: Daily, # Vinnie 00 30 tab, 0 Refill(s) calcium-vit Yes [...] mg = 1 Memoria 10 mg oral 10-06 Avis Stef tab, PO, l tablet 07:42: Bedtime, # Salma nn 00 30 tab, 0 Refill(s) Zantac 75 Yes Galilea 75 mg, PO, Memoria 10-06 Avis Stef QPM, 0 l 07:42: Refill(s) Lead 00 Fish Oil Yes Galilea 1,000 mg = Memoria 1000 mg 10-06 Avis Stef 1 cap, PO, l oral 07:42: Daily, 0 Vinnie capsule 00 Refill(s) Garlic Oil No 0 Memoria oral 10-06 Refill(s) l capsule 07:42: Lead 00 Tylenol No Galilea 500 mg = 1 Memoria Caplet 10-06 Avis Stef tab, PO, l Extra 07:42: Q4H, Vinnie Strength 00 Fever, # 500 mg oral 60 tab, 0 tablet Refill(s) magnesium Yes Galilea 200 mg = 1 Memoria oxide 200 10-06 Avis Stef tab, PO, l mg oral 07:42: BID, 0 Lead tablet 00 Refill(s) potassium No 595 mg = 1 Me moria gluconate 10-06 tab, PO, l 595 mg oral 07:42: Daily, # He rmann tablet 00 100 tab, 0 Refill(s) multivitami No Galilea 0 Me moria n 10-06 Avis Stef Refill(s) l 07:42: Lead 00 Alrex 0.2% Yes Galilea 1 drp, M emoria ophthalmic 10-06 Avis Stef BOTH EYES, l suspension 07:42: Bedtime, # H ermann 00 5 ml, 0 Refill(s) Pulmicort No Galilea 0 Semaj shashi Flexhaler 10-06 Avis Stef Refill(s) l 180 mcg/inh 07:42: Leland n inhalation 00 powder glipiZIDE No 5 mg, PO, Mem oria 10-06 TID, 0 l 07:42: Refill(s) Lead 00 levothyroxi Yes Galilea 75 Me moria [...] 10-06 per week, l 07:42: 6mg the Lead 00 other 5 days a week, 0 Refill(s) hydrALAZINE Yes Galilea 25 mg = 1 Memoria 25 mg oral 10-06 Avis Stef tab, PO, l tablet 07:42: BID, # 120 Salma nn 00 tab, 0 Refill(s) Lasix 20 mg Yes Galilea 20 mg = 1 Memoria oral tablet 10-06 Avis Stef tab, PO, l 07:42: Daily, # Lead 00 30 tab, 0 Refill(s) Norvasc 5 Yes Galilea 5 mg = 1 Memoria mg oral 10-06 Avis Stef tab, PO, l tablet 07:42: Daily, # Vinnie 00 30 tab, 0 Refill(s) calcium-vit Yes [...] mg = 1 Memoria 10 mg oral 10-06 Avis Stef tab, PO, l tablet 07:42: Bedtime, # Salma nn 00 30 tab, 0 Refill(s) Zantac 75 Yes Galilea 75 mg, PO, Memoria 10-06 Avis Stef QPM, 0 l 07:42: Refill(s) Vinnie 00 Fish Oil Yes Galilea 1,000 mg = Memoria 1000 mg 10-06 Avis Stef 1 cap, PO, l oral 07:42: Daily, 0 Lead capsule 00 Refill(s) Garlic Oil No 0 Memoria oral 10-06 Refill(s) l capsule 07:42: Vinnie 00 Tylenol No Galilea 500 mg = 1 Memoria Caplet 10-06 Avis Stef tab, PO, l Extra 07:42: Q4H, Vinnie Strength 00 Fever, # 500 mg oral 60 tab, 0 tablet Refill(s) magnesium Yes Galilea 200 mg = 1 [...] oria 10-06 TID, 0 l 07:42: Refill(s) Lead 00 levothyroxi Yes Galilea 75 Me moria [...] 10-06 per week, l 07:42: 6mg the Lead 00 other 5 days a week, 0 Refill(s) hydrALAZINE Yes Galilea 25 mg = 1 Memoria 25 mg oral 10-06 Avis Stef tab, PO, l tablet 07:42: BID, # 120 Salma nn 00 tab, 0 Refill(s) Lasix 20 mg Yes Galilea 20 mg = 1 Memoria oral tablet 10-06 Avis Stef tab, PO, l 07:42: Daily, # Vinnie 00 30 tab, 0 Refill(s) Norvasc 5 Yes Galilea 5 mg = 1 Memoria mg oral 10-06 Avis Stef tab, PO, l tablet 07:42: Daily, # Lead 00 30 tab, 0 Refill(s) calcium-vit Yes [...] mg = 1 Memoria 10 mg oral 10-06 Avis Stef tab, PO, l tablet 07:42: Bedtime, # Salma nn 00 30 tab, 0 Refill(s) Zantac 75 Yes Galilea 75 mg, PO, Memoria 10-06 Avis Stef QPM, 0 l 07:42: Refill(s) Lead 00 Fish Oil Yes Galilea 1,000 mg = Memoria 1000 mg 10-06 Avis Stef 1 cap, PO, l oral 07:42: Daily, 0 Vinnie capsule 00 Refill(s) Garlic Oil No 0 Memoria oral 10-06 Refill(s) l capsule 07:42: Lead 00 Tylenol No Galilea 500 mg = 1 Memoria Caplet 10-06 Avis Stef tab, PO, l Extra 07:42: Q4H, Vinnie Strength 00 Fever, # 500 mg oral 60 tab, 0 tablet Refill(s) magnesium Yes Galilea 200 mg = 1 Memoria oxide 200 10-06 Avis Stef tab, PO, l mg oral 07:42: BID, 0 Lead tablet 00 Refill(s) potassium No 595 mg [...] oria 10-06 TID, 0 l 07:42: Refill(s) Vinnie 00 levothyroxi Yes Galilea 75 Me moria [...] 10-06 per week, l 07:42: 6mg the Lead 00 other 5 days a week, 0 Refill(s) hydrALAZINE Yes Galilea 25 mg = 1 Memoria 25 mg oral 10-06 Avis Stef tab, PO, l tablet 07:42: BID, # 120 Salma nn 00 tab, 0 Refill(s) Lasix 20 mg Yes Galilea 20 mg = 1 Memoria oral tablet 10-06 Avis Stef tab, PO, l 07:42: Daily, # Vinnie 00 30 tab, 0 Refill(s) Norvasc 5 Yes Galilea 5 mg = 1 Memoria mg oral 10-06 Avis Stef tab, PO, l tablet 07:42: Daily, # Lead 00 30 tab, 0 Refill(s) calcium-vit Yes [...] mg = 1 Memoria 10 mg oral 10-06 Avis Stef tab, PO, l tablet 07:42: Bedtime, # Salma nn 00 30 tab, 0 Refill(s) Zantac 75 Yes Galilea 75 mg, PO, Memoria 10-06 Avis Stef QPM, 0 l 07:42: Refill(s) Vinnie 00 Fish Oil Yes Galilea 1,000 mg = Memoria 1000 mg 10-06 Avis Stef 1 cap, PO, l oral 07:42: Daily, 0 Vinnie capsule 00 Refill(s) Garlic Oil No 0 Memoria oral 10-06 Refill(s) l capsule 07:42: Vinnie 00 Tylenol No Galilea 500 mg = 1 Memoria Caplet 10-06 Avis Stef tab, PO, l Extra 07:42: Q4H, Vinnie Strength 00 Fever, # 500 mg oral 60 tab, 0 tablet Refill(s) magnesium Yes Galilea 200 mg = 1 Memoria oxide 200 10-06 Avis Stef tab, PO, l mg oral 07:42: BID, 0 Lead tablet 00 Refill(s) potassium No 595 mg = 1 Me moria gluconate 10-06 tab, PO, l 595 mg oral 07:42: Daily, # He rmann tablet 00 100 tab, 0 Refill(s) multivitami No Galilea 0 Me moria n 10-06 Avis Stef Refill(s) l 07:42: Lead 00 Alrex 0.2% Yes Galilea 1 drp, M emoria ophthalmic 10-06 Avis Stef BOTH EYES, l suspension 07:42: Bedtime, # H ermann 00 5 ml, 0 Refill(s) Pulmicort No Galilea 0 Semaj shashi Flexhaler 10-06 Avis Stef Refill(s) l 180 mcg/inh 07:42: Leland n inhalation 00 powder glipiZIDE No 5 mg, PO, Mem oria 10-06 TID, 0 l 07:42: Refill(s) Vinnie 00 levothyroxi Yes Galilea 75 Me moria ne 75 mcg 10-06 Avis Stef microgram l (0.075 mg) 07:42: = 1 tab, Her jin oral tablet 00 PO, Daily, # 30 tab, 0 Refill(s) Coreg 3.125 No Galilea 3.125 mg = Memoria mg oral 10-06 Avis Stef 1 tab, PO, l tablet 07:42: TID, # 180 Salma nn 00 tab, 0 Refill(s) isosorbide Yes Galiela 20 mg = 1 Memoria dinitrate 10-06 [...] Stef tab, PO, l 07:42: Daily, # Lead 00 30 tab, 0 Refill(s) Norvasc 5 Yes Galilea 5 mg = 1 Memoria mg oral 10-06 Avis Stef tab, PO, l tablet 07:42: Daily, # Vinnie 00 30 tab, 0 Refill(s) calcium-vit Yes [...] mg = 1 Memoria 10 mg oral 10-06 Avis Stef tab, PO, l tablet 07:42: Bedtime, # Salma nn 00 30 tab, 0 Refill(s) Zantac 75 Yes Galilea 75 mg, PO, Memoria 10-06 Avis Stef QPM, 0 l 07:42: Refill(s) Lead 00 Fish Oil Yes Galilea 1,000 mg = Memoria 1000 mg 10-06 Avis Stef 1 cap, PO, l oral 07:42: Daily, 0 Lead capsule 00 Refill(s) Garlic Oil No 0 Memoria oral 10-06 Refill(s) l capsule 07:42: Lead 00 Tylenol No Galilea 500 mg = 1 Memoria Caplet 10-06 Avis Stef tab, PO, l Extra 07:42: Q4H, Vinnie Strength 00 Fever, # 500 mg oral 60 tab, 0 tablet Refill(s) magnesium Yes Galilea 200 mg = 1 [...] n 10-06 Avis Stef Refill(s) l 07:42: Lead 00 Alrex 0.2% Yes Galilea 1 drp, M emoria ophthalmic 10-06 Avis Stef BOTH EYES, l suspension 07:42: Bedtime, # H ermann 00 5 ml, 0 Refill(s) Pulmicort No Galilea 0 Semaj shashi Flexhaler 10-06 Avis Stef Refill(s) l 180 mcg/inh 07:42: Leland n inhalation 00 powder glipiZIDE No 5 mg, PO, Mem oria 10-06 TID, 0 l 07:42: Refill(s) Vinnie 00 levothyroxi Yes Galilea 75 Me moria [...] 10-06 per week, l 07:42: 6mg the Lead 00 other 5 days a week, 0 Refill(s) hydrALAZINE Yes Galilea 25 mg = 1 Memoria 25 mg oral 10-06 Avis Stef tab, PO, l tablet 07:42: BID, # 120 Salma nn 00 tab, 0 Refill(s) Lasix 20 mg Yes Galilea 20 mg = 1 Memoria oral tablet 10-06 Avis Stef tab, PO, l 07:42: Daily, # Vinnie 00 30 tab, 0 Refill(s) Norvasc 5 Yes Galilea 5 mg = 1 Memoria mg oral 10-06 Avis Stef tab, PO, l tablet 07:42: Daily, # Lead 00 30 tab, 0 Refill(s) calcium-vit Yes [...] mg = 1 Memoria 10 mg oral 10-06 Avis Stef tab, PO, l tablet 07:42: Bedtime, # Salma nn 00 30 tab, 0 Refill(s) Zantac 75 Yes Galilea 75 mg, PO, Memoria 10-06 Avis Stef QPM, 0 l 07:42: Refill(s) Vinnie 00 Fish Oil Yes Galilea 1,000 mg = Memoria 1000 mg -22 Avis Stef 1 cap, PO, l oral 07:42: Daily, 0 Lead capsule 00 Refill(s) Garlic Oil No 0 Memoria oral -22 Refill(s) l capsule 07:42: Vinnie 00 Tylenol No Galilea 500 mg = 1 Memoria Caplet 10-06 Avis Stef tab, PO, l Extra 07:42: Q4H, Vinnie Strength 00 Fever, # 500 mg oral 60 tab, 0 tablet Refill(s) clotrimazol No 0 Memori a e topical 1-22 Refill(s) l 1% solution 07:41: Leland n 00 Vitamin B12 No 0 Memori a 1-22 Refill(s) l 07:41: Vinnie 00 Vitamin C No 0 Memoria 1-22 Refill(s) l 07:41: Vinnie 00 clotrimazol No 0 Memori a e topical 1-22 Refill(s) l 1% solution 07:41: Leland n 00 Vitamin B12 No 0 Memori a 1-22 Refill(s) l 07:41: Lead 00 Vitamin C No 0 Memoria 1-22 Refill(s) l 07:41: Vinnie 00 clotrimazol No 0 Memori a e topical 1-22 Refill(s) l 1% solution 07:41: Leland n 00 Vitamin B12 No 0 Memori a 1-22 Refill(s) l 07:41: Vinnie 00 Vitamin C No 0 Memoria 1-22 Refill(s) l 07:41: Vinnie 00 clotrimazol No 0 Memori a e topical 1-22 Refill(s) l 1% solution 07:41: Leland n 00 Vitamin B12 No 0 Memori a 1-22 Refill(s) l 07:41: Lead 00 Vitamin C No 0 Memoria 1-22 Refill(s) l 07:41: Vinnie 00 clotrimazol No 0 Memori a e topical 1-22 Refill(s) l 1% solution 07:41: Leland n Vitamin B12 2013-0 No 0 Memori a 1-22 Refill(s) l 07:41: Vinnie Vitamin C 2013-0 No 0 Memoria 1-22 Refill(s) l 07:41: Vinnie clotrimazol 2013-0 No 0 Memori a e topical 1-22 Refill(s) l 1% solution 07:41: Leland n Vitamin B12 2013-0 No 0 Memori a 1-22 Refill(s) l 07:41: Lead Vitamin C 2013-0 No 0 Memoria 1-22 Refill(s) l 07:41: Vinnie clotrimazol 2013-0 No 0 Memori a e topical 1-22 Refill(s) l 1% solution 07:41: Leland n Vitamin B12 2013-0 No 0 Memori a 1-22 Refill(s) l 07:41: Lead Vitamin C 2013-0 No 0 Memoria 1-22 Refill(s) l 07:41: Lead clotrimazol 2013-0 No 0 Memori a e topical 1-22 Refill(s) l 1% solution 07:41: Leland n Vitamin B12 2013-0 No 0 Memori a 1-22 Refill(s) l 07:41: Vinnie Vitamin C 2013-0 No 0 Memoria 1-22 Refill(s) l 07:41: Vinnie clotrimazol 2013-0 No 0 Memori a e topical 1-22 Refill(s) l 1% solution 07:41: Leland n Vitamin B12 2013-0 No 0 Memori a 1-22 Refill(s) l 07:41: Lead Vitamin C 2013-0 No 0 Memoria 1-22 Refill(s) l 07:41: Vinnie clotrimazol 2013-0 No 0 Memori a e topical 1-22 Refill(s) l 1% solution 07:41: Leland n Vitamin B12 2013-0 No 0 Memori a 1-22 Refill(s) l 07:41: Lead Vitamin C 2013-0 No 0 Memoria 1-22 Refill(s) l 07:41: Lead clotrimazol 2013-0 No 0 Memori a e topical 1-22 Refill(s) l 1% solution 07:41: Leland n Vitamin B12 2013-0 No 0 Memori a 1-22 Refill(s) l 07:41: Lead 00 Vitamin C 2013-0 No 0 Memoria 1-22 Refill(s) l 07:41: Vinnie 00 clotrimazol 2013-0 No 0 Memori a e topical 1-22 Refill(s) l 1% solution 07:41: Leland n Vitamin B12 2013-0 No 0 Memori a 1-22 Refill(s) l 07:41: Vitamin C 2013-0 No 0 Memoria 1-22 Refill(s) l 07:41: clotrimazol 2013-0 No 0 Memori a e topical 1-22 Refill(s) l 1% solution 07:41: Leland n Vitamin B12 2013-0 No 0 Memori a 1-22 Refill(s) l 07:41: Vitamin C 2013-0 No 0 Memoria 1-22 Refill(s) l 07:41: clotrimazol 2013-0 No 0 Memori a e topical 1-22 Refill(s) l 1% solution 07:41: [place] n Vitamin B12 2013-0 No 0 Memori a 1-22 Refill(s) l 07:41: Vitamin C 2013-0 No 0 Memoria 1-22 Refill(s) l 07:41: clotrimazol 2013-0 No 0 Memori a e topical 1-22 Refill(s) l 1% solution 07:41: [place] n Vitamin B12 2013-0 No 0 Memori a 1-22 Refill(s) l 07:41: Vitamin C 2013-0 No 0 Memoria 1-22 Refill(s) l 07:41: Vinnie 00 clotrimazol 2013-0 No 0 Memori a e topical 1-22 Refill(s) l 1% solution 07:41: [place] n Vitamin B12 2013-0 No 0 Memori a 1-22 Refill(s) l 07:41: Vinnie 00 Vitamin C 2013-0 No 0 Memoria 1-22 Refill(s) l 07:41: Lead clotrimazol 2013-0 No 0 Memori a e topical 1-22 Refill(s) l 1% solution 07:41: [place] n Vitamin B12 2013-0 No 0 Memori a 1-22 Refill(s) l 07:41: Lead Vitamin C 2013-0 No 0 Memoria 1-22 Refill(s) l 07:41: Lead clotrimazol 2013-0 No 0 Memori a e topical 1-22 Refill(s) l 1% solution 07:41: [place] n Vitamin B12 2013-0 No 0 Memori a 1-22 Refill(s) l 07:41: Vinnie Vitamin C 2013-0 No 0 Memoria 1-22 Refill(s) l 07:41: Lead clotrimazol 2013-0 No 0 Memori a e topical 1-22 Refill(s) l 1% solution 07:41: [place] n Vitamin B12 2013-0 No 0 Memori a 1-22 Refill(s) l 07:41: Vinnie Vitamin C 2013-0 No 0 Memoria 1-22 Refill(s) l 07:41: Lead clotrimazol 2013-0 No 0 Memori a e topical 1-22 Refill(s) l 1% solution 07:41: [place] n Vitamin B12 2013-0 No 0 Memori a 1-22 Refill(s) l 07:41: Lead Vitamin C 2013-0 No 0 Memoria 1-22 Refill(s) l 07:41: Lead clotrimazol 2013-0 No 0 Memori a e topical 1-22 Refill(s) l 1% solution 07:41: [place] n Vitamin B12 2013-0 No 0 Memori a 1-22 Refill(s) l 07:41: Lead Vitamin C 2013-0 No 0 Memoria 1-22 Refill(s) l 07:41: Lead clotrimazol 2013-0 No 0 Memori a e topical 1-22 Refill(s) l 1% solution 07:41: [place] n Vitamin B12 2013-0 No 0 Memori a 1-22 Refill(s) l 07:41: Vitamin C 2013-0 No 0 Memoria 1-22 Refill(s) l 07:41: Lead 00 clotrimazol 2013-0 No 0 Memori a e topical 1-22 Refill(s) l 1% solution 07:41: [place] n Vitamin B12 2013-0 No 0 Memori a 1-22 Refill(s) l 07:41: Vinnie 00 Vitamin C 2013-0 No 0 Memoria 1-22 Refill(s) l 07:41: Lead 00 clotrimazol 2013-0 No 0 Memori a e topical 1-22 Refill(s) l 1% solution 07:41: [place] n Vitamin B12 2013-0 No 0 Memori a 1-22 Refill(s) l 07:41: Vitamin C 2013-0 No 0 Memoria 1-22 Refill(s) l 07:41: clotrimazol 2013-0 No 0 Memori a e topical 1-22 Refill(s) l 1% solution 07:41: [place] Vitamin B12 2013-0 No 0 Memori a 1-22 Refill(s) l 07:41: Vitamin C 2013-0 No 0 Memoria 1-22 Refill(s) l 07:41: clotrimazol 2013-0 No 0 Memori a e topical 1-22 Refill(s) l 1% solution 07:41: [place] n Vitamin B12 2013-0 No 0 Memori a 1-22 Refill(s) l 07:41: Vitamin C 2013-0 No 0 Memoria 1-22 Refill(s) l 07:41: Lead 00 clotrimazol 2013-0 No 0 Memori a e topical 1-22 Refill(s) l 1% solution 07:41: [place] n Vitamin B12 2013-0 No 0 Memori a 1-22 Refill(s) l 07:41: Lead 00 Vitamin C 2013-0 No 0 Memoria 1-22 Refill(s) l 07:41: Lead 00 montelukast 2013-0 No 0 Memori a 10 mg oral 1-22 Refill(s) l tablet 07:40: Lead 00 aspirin 81 2013-0 No 0 Memoria mg tablet, 1-22 Refill(s) l chewable 07:40: Fish Oil 2013-0 No 0 Memoria 1-22 Refill(s) l 07:40: Zantac 75 2013-0 No 0 Memoria 1-22 Refill(s) l 07:40: montelukast 2013-0 No 0 Memori a 10 mg oral 1-22 Refill(s) l tablet 07:40: aspirin 81 2013-0 No 0 Memoria mg tablet, 1-22 Refill(s) l chewable 07:40: Fish Oil 2013-0 No 0 Memoria 1-22 Refill(s) l 07:40: Zantac 75 2013-0 No 0 Memoria 1-22 Refill(s) l 07:40: montelukast 2013-0 No 0 Memori a 10 mg oral 1-22 Refill(s) l tablet 07:40: aspirin 81 2013-0 No 0 Memoria mg tablet, 1-22 Refill(s) l chewable 07:40: Fish Oil 0 No 0 Memoria 1-22 Refill(s) l 07:40: Zantac 75 2013-0 No 0 Memoria 1-22 Refill(s) l 07:40: montelukast 2013-0 No 0 Memori a 10 mg oral 1-22 Refill(s) l tablet 07:40: aspirin 81 2013-0 No 0 Memoria mg tablet, 1-22 Refill(s) l chewable 07:40: Fish Oil 2013-0 No 0 Memoria 1-22 Refill(s) l 07:40: Zantac 75 2013-0 No 0 Memoria 1-22 Refill(s) l 07:40: montelukast 2014-0 No 0 Memori a 10 mg oral 1-22 Refill(s) l tablet 07:40: aspirin 81 2013-0 No 0 Memoria mg tablet, 1-22 Refill(s) l chewable 07:40: Fish Oil 2013-0 No 0 Memoria 1-22 Refill(s) l 07:40: Zantac 75 2013-0 No 0 Memoria 1-22 Refill(s) l 07:40: montelukast 2014-0 No 0 Memori a 10 mg oral 1-22 Refill(s) l tablet 07:40: aspirin 81 2013-0 No 0 Memoria mg tablet, 1-22 Refill(s) l chewable 07:40: Fish Oil 2013-0 No 0 Memoria 1-22 Refill(s) l 07:40: Zantac 75 2013-0 No 0 Memoria 1-22 Refill(s) l 07:40: montelukast 2014-0 No 0 Memori a 10 mg oral 1-22 Refill(s) l tablet 07:40: aspirin 81 2013-0 No 0 Memoria mg tablet, 1-22 Refill(s) l chewable 07:40: Fish Oil 2013-0 No 0 Memoria 1-22 Refill(s) l 07:40: Zantac 75 2013-0 No 0 Memoria 1-22 Refill(s) l 07:40: montelukast 2013-0 No 0 Memori a 10 mg oral 1-22 Refill(s) l tablet 07:40: aspirin 81 2013-0 No 0 Memoria mg tablet, 1-22 Refill(s) l chewable 07:40: Fish Oil 2013-0 No 0 Memoria 1-22 Refill(s) l 07:40: Zantac 75 2013-0 No 0 Memoria 1-22 Refill(s) l 07:40: montelukast 2013-0 No 0 Memori a 10 mg oral 1-22 Refill(s) l tablet 07:40: aspirin 81 2014-0 No 0 Memoria mg tablet, 1-22 Refill(s) l chewable 07:40: Fish Oil 2013-0 No 0 Memoria 1-22 Refill(s) l 07:40: Zantac 75 2013-0 No 0 Memoria 1-22 Refill(s) l 07:40: montelukast 2013-0 No 0 Memori a 10 mg oral 1-22 Refill(s) l tablet 07:40: aspirin 81 2013-0 No 0 Memoria mg tablet, 1-22 Refill(s) l chewable 07:40: Fish Oil 2013-0 No 0 Memoria 1-22 Refill(s) l 07:40: Zantac 75 2013-0 No 0 Memoria 1-22 Refill(s) l 07:40: montelukast 2013-0 No 0 Memori a 10 mg oral 1-22 Refill(s) l tablet 07:40: aspirin 81 2013-0 No 0 Memoria mg tablet, 1-22 Refill(s) l chewable 07:40: Fish Oil 2013-0 No 0 Memoria 1-22 Refill(s) l 07:40: Zantac 75 2013-0 No 0 Memoria 1-22 Refill(s) l 07:40: montelukast 2013-0 No 0 Memori a 10 mg oral 1-22 Refill(s) l tablet 07:40: aspirin 81 2013-0 No 0 Memoria mg tablet, 1-22 Refill(s) l chewable 07:40: Fish Oil 2013-0 No 0 Memoria 1-22 Refill(s) l 07:40: Zantac 75 0 No 0 Memoria 1-22 Refill(s) l 07:40: montelukast 2013-0 No 0 Memori a 10 mg oral 1-22 Refill(s) l tablet 07:40: aspirin 81 2013-0 No 0 Memoria mg tablet, 1-22 Refill(s) l chewable 07:40: Fish Oil 2013-0 No 0 Memoria 1-22 Refill(s) l 07:40: Zantac 75 2013-0 No 0 Memoria 1-22 Refill(s) l 07:40: montelukast 2013-0 No 0 Memori a 10 mg oral 1-22 Refill(s) l tablet 07:40: aspirin 81 2013-0 No 0 Memoria mg tablet, 1-22 Refill(s) l chewable 07:40: Fish Oil 2013-0 No 0 Memoria 1-22 Refill(s) l 07:40: Zantac 75 2013-0 No 0 Memoria 1-22 Refill(s) l 07:40: montelukast 2014-0 No 0 Memori a 10 mg oral 1-22 Refill(s) l tablet 07:40: aspirin 81 2013-0 No 0 Memoria mg tablet, 1-22 Refill(s) l chewable 07:40: Fish Oil 2013-0 No 0 Memoria 1-22 Refill(s) l 07:40: Zantac 75 2013-0 No 0 Memoria 1-22 Refill(s) l 07:40: montelukast 2013-0 No 0 Memori a 10 mg oral 1-22 Refill(s) l tablet 07:40: aspirin 81 2013-0 No 0 Memoria mg tablet, 1-22 Refill(s) l chewable 07:40: Fish Oil 2013-0 No 0 Memoria 1-22 Refill(s) l 07:40: Zantac 75 2013-0 No 0 Memoria 1-22 Refill(s) l 07:40: montelukast 2014-0 No 0 Memori a 10 mg oral 1-22 Refill(s) l tablet 07:40: aspirin 81 2013-0 No 0 Memoria mg tablet, 1-22 Refill(s) l chewable 07:40: Fish Oil 2013-0 No 0 Memoria 1-22 Refill(s) l 07:40: Zantac 75 2013-0 No 0 Memoria 1-22 Refill(s) l 07:40: montelukast 2014-0 No 0 Memori a 10 mg oral 1-22 Refill(s) l tablet 07:40: aspirin 81 2014-0 No 0 Memoria mg tablet, 1-22 Refill(s) l chewable 07:40: Fish Oil 2013-0 No 0 Memoria 1-22 Refill(s) l 07:40: Zantac 75 2013-0 No 0 Memoria 1-22 Refill(s) l 07:40: montelukast 2014-0 No 0 Memori a 10 mg oral 1-22 Refill(s) l tablet 07:40: aspirin 81 2014-0 No 0 Memoria mg tablet, 1-22 Refill(s) l chewable 07:40: Fish Oil 2013-0 No 0 Memoria 1-22 Refill(s) l 07:40: Zantac 75 2013-0 No 0 Memoria 1-22 Refill(s) l 07:40: montelukast 2014-0 No 0 Memori a 10 mg oral 1-22 Refill(s) l tablet 07:40: aspirin 81 2014-0 No 0 Memoria mg tablet, 1-22 Refill(s) l chewable 07:40: Fish Oil 2013-0 No 0 Memoria 1-22 Refill(s) l 07:40: Zantac 75 0 No 0 Memoria 1-22 Refill(s) l 07:40: montelukast 2013-0 No 0 Memori a 10 mg oral 1-22 Refill(s) l tablet 07:40: aspirin 81 2013-0 No 0 Memoria mg tablet, 1-22 Refill(s) l chewable 07:40: Fish Oil 2013-0 No 0 Memoria 1-22 Refill(s) l 07:40: Zantac 75 2013-0 No 0 Memoria 1-22 Refill(s) l 07:40: montelukast 2014-0 No 0 Memori a 10 mg oral 1-22 Refill(s) l tablet 07:40: aspirin 81 2014-0 No 0 Mem[facility] mg tablet, 1-22 Refill(s) l chewable 07:40: Fish Oil 2013-0 No 0 Memoria 1-22 Refill(s) l 07:40: Zantac 75 2014-0 No 0 Memoria 1-22 Refill(s) l 07:40: montelukast 2014-0 No 0 Memori a 10 mg oral 1-22 Refill(s) l tablet 07:40: aspirin 81 2013-0 No 0 [facility] mg tablet, 1-22 Refill(s) l chewable 07:40: Fish Oil 2013-0 No 0 Memoria 1-22 Refill(s) l 07:40: Zantac 75 2013-0 No 0 Memoria 1-22 Refill(s) l 07:40: montelukast 2013-0 No 0 Memori a 10 mg oral 1-22 Refill(s) l tablet 07:40: aspirin 81 2013-0 No 0 Memoria mg tablet, 1-22 Refill(s) l chewable 07:40: Fish Oil 2013-0 No 0 Memoria 1-22 Refill(s) l 07:40: Zantac 75 2013-0 No 0 Memoria 1-22 Refill(s) l 07:40: montelukast 2013-0 No 0 Memori a 10 mg oral 1-22 Refill(s) l tablet 07:40: aspirin 81 0 No 0 Memoria mg tablet, 1-22 Refill(s) l chewable 07:40: Fish Oil 2013-0 No 0 Memoria 1-22 Refill(s) l 07:40: Zantac 75 2013-0 No 0 Memoria 1-22 Refill(s) l 07:40: montelukast 2013-0 No 0 Memori a 10 mg oral 1-22 Refill(s) l tablet 07:40: aspirin 81 2013-0 No 0 Memoria mg tablet, 1-22 Refill(s) l chewable 07:40: Fish Oil 2013-0 No 0 Memoria 1-22 Refill(s) l 07:40: Zantac 75 2013-0 No 0 Memoria 1-22 Refill(s) l 07:40: montelukast 2013-0 No 0 Memori a 10 mg oral 1-22 Refill(s) l tablet 07:40: aspirin 81 2013-0 No 0 [facility] mg tablet, 1-22 Refill(s) l chewable 07:40: Fish Oil 2013-0 No 0 Memoria 1-22 Refill(s) l 07:40: Lead 00 Zantac 75 2013-0 No 0 Memoria 1-22 Refill(s) l 07:40: Lead 00 magnesium 2013-0 No 0 [facility]oria oxide 200 1-22 Refill(s) l mg oral 07:39: Lead tablet 00 potassium 2013-0 No 0 [facility]oria gluconate 1-22 Refill(s) l 595 mg oral 07:39: [place] n tablet 00 magnesium 2013-0 No 0 Memoria oxide 200 1-22 Refill(s) l mg oral 07:39: Vinnie tablet 00 potassium 2013-0 No 0 Memoria gluconate 1-22 Refill(s) l 595 mg oral 07:39: [place] n tablet 00 magnesium 2013-0 No 0 Memoria oxide 200 1-22 Refill(s) l mg oral 07:39: Lead tablet 00 potassium 2013-0 No 0 Memoria gluconate 1-22 Refill(s) l 595 mg oral 07:39: [place] n tablet 00 magnesium 2013-0 No 0 Memoria oxide 200 1-22 Refill(s) l mg oral 07:39: Lead tablet 00 potassium 2013-0 No 0 Memoria gluconate 1-22 Refill(s) l 595 mg oral 07:39: [place] n tablet 00 magnesium 2013-0 No 0 Memoria oxide 200 1-22 Refill(s) l mg oral 07:39: Lead tablet 00 potassium 2013-0 No 0 [facility] gluconate 1-22 Refill(s) l 595 mg oral 07:39: [place] n tablet 00 magnesium 2013-0 No 0 Memoria oxide 200 1-22 Refill(s) l mg oral 07:39: Vinnie tablet 00 potassium 2013-0 No 0 Memoria gluconate 1-22 Refill(s) l 595 mg oral 07:39: [place] n tablet 00 magnesium 2013-0 No 0 Memoria oxide 200 1-22 Refill(s) l mg oral 07:39: Vinnie tablet 00 potassium 2013-0 No 0 Memoria gluconate 1-22 Refill(s) l 595 mg oral 07:39: [place] n tablet 00 magnesium 2013-0 No 0 Memoria oxide 200 1-22 Refill(s) l mg oral 07:39: Vinnie tablet 00 potassium 2013-0 No 0 [facility]oria gluconate 1-22 Refill(s) l 595 mg oral 07:39: [place] n tablet 00 magnesium 2013-0 No 0 Memoria oxide 200 1-22 Refill(s) l mg oral 07:39: Lead tablet 00 potassium 2013-0 No 0 Memoria gluconate 1-22 Refill(s) l 595 mg oral 07:39: [place] n tablet 00 magnesium 2013-0 No 0 Memoria oxide 200 1-22 Refill(s) l mg oral 07:39: Vinnie tablet 00 potassium 2013-0 No 0 Memoria gluconate 1-22 Refill(s) l 595 mg oral 07:39: [place] n tablet 00 magnesium 2013-0 No 0 Memoria oxide 200 1-22 Refill(s) l mg oral 07:39: Vinnie tablet 00 potassium 2013-0 No 0 Memoria gluconate 1-22 Refill(s) l 595 mg oral 07:39: [place] n tablet 00 magnesium 2013-0 No 0 Memoria oxide 200 1-22 Refill(s) l mg oral 07:39: Vinnie tablet 00 potassium 2013-0 No 0 Memoria gluconate 1-22 Refill(s) l 595 mg oral 07:39: [place] n tablet 00 magnesium 2013-0 No 0 Memoria oxide 200 1-22 Refill(s) l mg oral 07:39: Vinnie tablet 00 potassium 2013-0 No 0 Memoria gluconate 1-22 Refill(s) l 595 mg oral 07:39: [place] n tablet 00 magnesium 2013-0 No 0 Memoria oxide 200 1-22 Refill(s) l mg oral 07:39: Lead tablet 00 potassium 2013-0 No 0 Memoria gluconate 1-22 Refill(s) l 595 mg oral 07:39: [place] n tablet 00 magnesium 2013-0 No 0 Memoria oxide 200 1-22 Refill(s) l mg oral 07:39: Lead tablet 00 potassium 2013-0 No 0 Memoria gluconate 1-22 Refill(s) l 595 mg oral 07:39: [place] n tablet 00 magnesium 2013-0 No 0 Memoria oxide 200 1-22 Refill(s) l mg oral 07:39: Lead tablet 00 potassium 2013-0 No 0 Memoria gluconate 1-22 Refill(s) l 595 mg oral 07:39: [place] n tablet 00 magnesium 2013-0 No 0 Memoria oxide 200 1-22 Refill(s) l mg oral 07:39: Vinnie tablet 00 potassium 2013-0 No 0 Memoria gluconate 1-22 Refill(s) l 595 mg oral 07:39: [place] n tablet 00 magnesium 2013-0 No 0 Memoria oxide 200 1-22 Refill(s) l mg oral 07:39: Lead tablet 00 potassium 2013-0 No 0 Memoria gluconate 1-22 Refill(s) l 595 mg oral 07:39: [place] n tablet 00 magnesium 2013-0 No 0 Memoria oxide 200 1-22 Refill(s) l mg oral 07:39: Lead tablet 00 potassium 2013-0 No 0 Memoria gluconate 1-22 Refill(s) l 595 mg oral 07:39: [place] n tablet 00 magnesium 2013-0 No 0 Memoria oxide 200 1-22 Refill(s) l mg oral 07:39: Lead tablet 00 potassium 2013-0 No 0 Memoria gluconate 1-22 Refill(s) l 595 mg oral 07:39: [place] n tablet 00 magnesium 2013-0 No 0 Memoria oxide 200 1-22 Refill(s) l mg oral 07:39: Lead tablet 00 potassium 2013-0 No 0 Memoria gluconate 1-22 Refill(s) l 595 mg oral 07:39: [place] n tablet 00 magnesium 2013-0 No 0 Memoria oxide 200 1-22 Refill(s) l mg oral 07:39: Lead tablet 00 potassium 2013-0 No 0 Memoria gluconate 1-22 Refill(s) l 595 mg oral 07:39: [place] n tablet 00 magnesium 2013-0 No 0 Memoria oxide 200 1-22 Refill(s) l mg oral 07:39: Lead tablet 00 potassium 2013-0 No 0 [facility]oria gluconate 1-22 Refill(s) l 595 mg oral 07:39: [place] n tablet 00 magnesium 2013-0 No 0 Memoria oxide 200 1-22 Refill(s) l mg oral 07:39: Vinnie tablet 00 potassium 2013-0 No 0 Memoria gluconate 1-22 Refill(s) l 595 mg oral 07:39: [place] n tablet 00 magnesium 2013-0 No 0 Memoria oxide 200 1-22 Refill(s) l mg oral 07:39: Lead tablet 00 potassium No 0 Memoria gluconate 1-22 Refill(s) l 595 mg oral 07:39: [place] n tablet 00 magnesium 2013-0 No 0 Memoria oxide 200 1-22 Refill(s) l mg oral 07:39: Lead tablet 00 potassium 0 No 0 [facility]oria gluconate 1-22 Refill(s) l 595 mg oral 07:39: [place] n tablet 00 magnesium 0 No 0 Memoria oxide 200 1-22 Refill(s) l mg oral 07:39: Vinnie tablet 00 potassium No 0 [facility]oria gluconate 1-22 Refill(s) l 595 mg oral 07:39: [place] n tablet 00 Pulmicort No 0 Memoria Flexhaler 1-22 Refill(s) l 07:35: Lead 00 glipiZIDE 2013-0 No 0 Memoria 1-22 Refill(s) l 07:35: Vinnie 00 Pulmicort 0 No 0 Memoria Flexhaler 1-22 Refill(s) l 07:35: Lead 00 glipiZIDE 0 No 0 Memoria 1-22 Refill(s) l 07:35: Lead 00 Pulmicort 0 No 0 Memoria Flexhaler 1-22 Refill(s) l 07:35: Lead 00 glipiZIDE 2013-0 No 0 Memoria 1-22 Refill(s) l 07:35: Vinnie 00 Pulmicort 0 No 0 Memoria Flexhaler 1-22 Refill(s) l 07:35: Lead 00 glipiZIDE 2013-0 No 0 Memoria 1-22 Refill(s) l 07:35: Lead 00 Pulmicort 0 No 0 Memoria Flexhaler 1-22 Refill(s) l 07:35: Lead 00 glipiZIDE 2013-0 No 0 Memoria 1-22 Refill(s) l 07:35: Lead 00 Pulmicort 2013-0 No 0 Memoria Flexhaler 1-22 Refill(s) l 07:35: [facility]innie 00 glipiZIDE 2013-0 No 0 Memoria 1-22 Refill(s) l 07:35: Lead 00 Pulmicort 2014-0 No 0 Memoria Flexhaler 1-22 Refill(s) l 07:35: Vinnie 00 glipiZIDE 2013-0 No 0 Memoria 1-22 Refill(s) l 07:35: Vinnie Pulmicort 0 No 0 Memoria Flexhaler 1-22 Refill(s) l 07:35: [facility] glipiZIDE 2013-0 No 0 Memoria 1-22 Refill(s) l 07:35: [facility]innie Pulmicort 0 No 0 Memoria Flexhaler 1-22 Refill(s) l 07:35: Lead glipiZIDE 2013-0 No 0 Memoria 1-22 Refill(s) l 07:35: Lead Pulmicort 0 No 0 Memoria Flexhaler 1-22 Refill(s) l 07:35: Lead glipiZIDE 2013-0 No 0 Memoria 1-22 Refill(s) l 07:35: Lead Pulmicort 0 No 0 Memoria Flexhaler 1-22 Refill(s) l 07:35: [place] glipiZIDE 2013-0 No 0 Memoria 1-22 Refill(s) l 07:35: Lead Pulmicort 0 No 0 Memoria Flexhaler 1-22 Refill(s) l 07:35: Lead glipiZIDE 2013-0 No 0 Memoria 1-22 Refill(s) l 07:35: Lead Pulmicort 0 No 0 Memoria Flexhaler 1-22 Refill(s) l 07:35: [place] glipiZIDE 2013-0 No 0 Memoria 1-22 Refill(s) l 07:35: Lead Pulmicort 2013-0 No 0 Memoria Flexhaler 1-22 Refill(s) l 07:35: [facility] glipiZIDE 2013-0 No 0 Memoria 1-22 Refill(s) l 07:35: Vinnie Pulmicort 0 No 0 Memoria Flexhaler 1-22 Refill(s) l 07:35: Lead glipiZIDE 2013-0 No 0 Memoria 1-22 Refill(s) l 07:35: Lead Pulmicort 2013-0 No 0 Memoria Flexhaler 1-22 Refill(s) l 07:35: Vinnie 00 glipiZIDE 2013-0 No 0 Memoria 1-22 Refill(s) l 07:35: Lead 00 Pulmicort 2013-0 No 0 Memoria Flexhaler 1-22 Refill(s) l 07:35: [facility] glipiZIDE 2013-0 No 0 Memoria 1-22 Refill(s) l 07:35: Lead Pulmicort 0 No 0 Memoria Flexhaler 1-22 Refill(s) l 07:35: [facility] glipiZIDE 2013-0 No 0 Memoria 1-22 Refill(s) l 07:35: Vinnie Pulmicort 0 No 0 Memoria Flexhaler 1-22 Refill(s) l 07:35: [facility]innie glipiZIDE 2013-0 No 0 Memoria 1-22 Refill(s) l 07:35: Vinnie Pulmicort 0 No 0 Memoria Flexhaler 1-22 Refill(s) l 07:35: [facility] glipiZIDE 2013-0 No 0 Memoria 1-22 Refill(s) l 07:35: Vinnie Pulmicort 2013-0 No 0 Memoria Flexhaler 1-22 Refill(s) l 07:35: [facility] glipiZIDE 2013-0 No 0 Memoria 1-22 Refill(s) l 07:35: Vinnie Pulmicort 2013-0 No 0 Memoria Flexhaler 1-22 Refill(s) l 07:35: Lead glipiZIDE 2013-0 No 0 Memoria 1-22 Refill(s) l 07:35: Lead Pulmicort 2013-0 No 0 Memoria Flexhaler 1-22 Refill(s) l 07:35: Lead 00 glipiZIDE 2013-0 No 0 Memoria 1-22 Refill(s) l 07:35: Lead Pulmicort 2013-0 No 0 Memoria Flexhaler 1-22 Refill(s) l 07:35: [facility]innie glipiZIDE 2013-0 No 0 Memoria 1-22 Refill(s) l 07:35: Vinnie 00 Pulmicort No 0 Memoria Flexhaler 1-22 Refill(s) l 07:35: [facility] glipiZIDE 2013-0 No 0 Memoria 1-22 Refill(s) l 07:35: Lead Pulmicort No 0 Memoria Flexhaler 1-22 Refill(s) l 07:35: Lead glipiZIDE 0 No 0 Memoria 1-22 Refill(s) l 07:35: Vinnie Pulmicort No 0 Memoria Flexhaler 1-22 Refill(s) l 07:35: Lead glipiZIDE No 0 Memoria 1-22 Refill(s) l 07:35: Lead levothyroxi No 0 Memori a ne 75 mcg 1-22 Refill(s) l (0.075 mg) 07:34: Lead oral tablet warfarin No 0 Memoria 7.5 mg oral 1-22 Refill(s) l tablet 07:34: Vinnie carvedilol No 0 Memoria 3.125 mg 1-22 Refill(s) l oral tablet 07:34: [place] n isosorbide 0 No 0 Memoria dinitrate 1-22 Refill(s) l 20 mg oral 07:34: Lead tablet levothyroxi No 0 Memori a ne 75 mcg 1-22 Refill(s) l (0.075 mg) 07:34: Lead oral tablet warfarin No 0 Memoria 7.5 mg oral 1-22 Refill(s) l tablet 07:34: Vinnie 00 carvedilol 0 No 0 Memoria 3.125 mg 1-22 Refill(s) l oral tablet 07:34: [place] n isosorbide 0 No 0 Memoria dinitrate 1-22 Refill(s) l 20 mg oral 07:34: Vinnie tablet 00 levothyroxi 0 No 0 Memori a ne 75 mcg 1-22 Refill(s) l (0.075 mg) 07:34: Lead oral tablet 00 warfarin No 0 Memoria 7.5 mg oral 1-22 Refill(s) l tablet 07:34: Lead 00 carvedilol 2013-0 No 0 Memoria 3.125 mg 1-22 Refill(s) l oral tablet 07:34: [place] n isosorbide 2013-0 No 0 Memoria dinitrate 1-22 Refill(s) l 20 mg oral 07:34: Vinnie tablet levothyroxi 0 No 0 Memori a ne 75 mcg 1-22 Refill(s) l (0.075 mg) 07:34: Vinnie oral tablet 00 warfarin No 0 Memoria 7.5 mg oral 1-22 Refill(s) l tablet 07:34: Vinnie 00 carvedilol 2013-0 No 0 Memoria 3.125 mg 1-22 Refill(s) l oral tablet 07:34: [place] n isosorbide No 0 Memoria dinitrate 1-22 Refill(s) l 20 mg oral 07:34: Lead tablet levothyroxi 0 No 0 Memori a ne 75 mcg 1-22 Refill(s) l (0.075 mg) 07:34: Vinnie oral tablet 00 warfarin No 0 Memoria 7.5 mg oral 1-22 Refill(s) l tablet 07:34: Lead 00 carvedilol 2013-0 No 0 Memoria 3.125 mg 1-22 Refill(s) l oral tablet 07:34: [place] n isosorbide 0 No 0 Memoria dinitrate 1-22 Refill(s) l 20 mg oral 07:34: Lead tablet 00 levothyroxi 0 No 0 Memori a ne 75 mcg 1-22 Refill(s) l (0.075 mg) 07:34: Lead oral tablet warfarin 2013- No 0 Memoria 7.5 mg oral 1-22 Refill(s) l tablet 07:34: Lead 00 carvedilol 2013-0 No 0 Memoria 3.125 mg 1-22 Refill(s) l oral tablet 07:34: [place] n isosorbide 2013-0 No 0 Memoria dinitrate 1-22 Refill(s) l 20 mg oral 07:34: Vinnie tablet 00 levothyroxi 0 No 0 Memori a ne 75 mcg 1-22 Refill(s) l (0.075 mg) 07:34: Vinnie oral tablet warfarin No 0 Memoria 7.5 mg oral 1-22 Refill(s) l tablet 07:34: Vinnie 00 carvedilol 2013-0 No 0 Memoria 3.125 mg 1-22 Refill(s) l oral tablet 07:34: [place] n isosorbide 0 No 0 Memoria dinitrate 1-22 Refill(s) l 20 mg oral 07:34: Vinnie tablet levothyroxi No 0 Memori a ne 75 mcg 1-22 Refill(s) l (0.075 mg) 07:34: Lead oral tablet warfarin No 0 Memoria 7.5 mg oral 1-22 Refill(s) l tablet 07:34: Vinnie carvedilol No 0 Memoria 3.125 mg 1-22 Refill(s) l oral tablet 07:34: [place] n isosorbide 0 No 0 Memoria dinitrate 1-22 Refill(s) l 20 mg oral 07:34: Vinnie tablet levothyroxi No 0 Memori a ne 75 mcg 1-22 Refill(s) l (0.075 mg) 07:34: Vinnie oral tablet warfarin No 0 Memoria 7.5 mg oral 1-22 Refill(s) l tablet 07:34: Vinnie carvedilol 0 No 0 Memoria 3.125 mg 1-22 Refill(s) l oral tablet 07:34: [place] n isosorbide 0 No 0 Memoria dinitrate 1-22 Refill(s) l 20 mg oral 07:34: Vinnie tablet levothyroxi 0 No 0 Memori a ne 75 mcg 1-22 Refill(s) l (0.075 mg) 07:34: Vinnie oral tablet warfarin No 0 Memoria 7.5 mg oral 1-22 Refill(s) l tablet 07:34: Lead 00 carvedilol 0 No 0 Memoria 3.125 mg 1-22 Refill(s) l oral tablet 07:34: [place] n isosorbide 2013-0 No 0 Memoria dinitrate 1-22 Refill(s) l 20 mg oral 07:34: Vinnie tablet 00 levothyroxi 0 No 0 Memori a ne 75 mcg 1-22 Refill(s) l (0.075 mg) 07:34: Lead oral tablet warfarin No 0 Memoria 7.5 mg oral 1-22 Refill(s) l tablet 07:34: Vinnie 00 carvedilol 2013-0 No 0 Memoria 3.125 mg 1-22 Refill(s) l oral tablet 07:34: [place] n 00 isosorbide No 0 Memoria dinitrate 1-22 Refill(s) l 20 mg oral 07:34: Vinnie tablet levothyroxi No 0 Memori a ne 75 mcg 1-22 Refill(s) l (0.075 mg) 07:34: Lead oral tablet 00 warfarin No 0 Memoria 7.5 mg oral 1-22 Refill(s) l tablet 07:34: Lead 00 carvedilol No 0 Memoria 3.125 mg 1-22 Refill(s) l oral tablet 07:34: [place] n isosorbide 0 No 0 Memoria dinitrate 1-22 Refill(s) l 20 mg oral 07:34: Vinnie tablet levothyroxi No 0 Memori a ne 75 mcg 1-22 Refill(s) l (0.075 mg) 07:34: Vinnie oral tablet 00 warfarin No 0 Memoria 7.5 mg oral 1-22 Refill(s) l tablet 07:34: Vinnie 00 carvedilol 0 No 0 Memoria 3.125 mg 1-22 Refill(s) l oral tablet 07:34: L[place] n 00 isosorbide 2013-0 No 0 Memoria dinitrate 1-22 Refill(s) l 20 mg oral 07:34: Vinnie tablet 00 levothyroxi 0 No 0 Memori a ne 75 mcg 1-22 Refill(s) l (0.075 mg) 07:34: Lead oral tablet 00 warfarin No 0 Memoria 7.5 mg oral 1-22 Refill(s) l tablet 07:34: Lead 00 carvedilol 2013-0 No 0 Memoria 3.125 mg 1-22 Refill(s) l oral tablet 07:34: [place] n isosorbide 2013-0 No 0 Memoria dinitrate 1-22 Refill(s) l 20 mg oral 07:34: Vinnie tablet levothyroxi 0 No 0 Memori a ne 75 mcg 1-22 Refill(s) l (0.075 mg) 07:34: Lead oral tablet warfarin 0 No 0 Memoria 7.5 mg oral 1-22 Refill(s) l tablet 07:34: Vinnie 00 carvedilol 2013-0 No 0 Memoria 3.125 mg 1-22 Refill(s) l oral tablet 07:34: [place] n isosorbide 0 No 0 Memoria dinitrate 1-22 Refill(s) l 20 mg oral 07:34: Lead tablet levothyroxi 0 No 0 Memori a ne 75 mcg 1-22 Refill(s) l (0.075 mg) 07:34: Lead oral tablet warfarin 0 No 0 Memoria 7.5 mg oral 1-22 Refill(s) l tablet 07:34: Lead 00 carvedilol 2013-0 No 0 Memoria 3.125 mg 1-22 Refill(s) l oral tablet 07:34: Leland n isosorbide 0 No 0 Memoria dinitrate 1-22 Refill(s) l 20 mg oral 07:34: Lead tablet 00 levothyroxi 2013-0 No 0 Memori a ne 75 mcg 1-22 Refill(s) l (0.075 mg) 07:34: Vinnie oral tablet warfarin 2013-0 No 0 Memoria 7.5 mg oral 1-22 Refill(s) l tablet 07:34: Lead 00 carvedilol 2013-0 No 0 Memoria 3.125 mg 1-22 Refill(s) l oral tablet 07:34: Leland n isosorbide 2013-0 No 0 Memoria dinitrate 1-22 Refill(s) l 20 mg oral 07:34: Lead tablet 00 levothyroxi 2013-0 No 0 Memori a ne 75 mcg 1-22 Refill(s) l (0.075 mg) 07:34: Lead oral tablet warfarin No 0 Memoria 7.5 mg oral 1-22 Refill(s) l tablet 07:34: Vinnie 00 carvedilol 2013-0 No 0 Memoria 3.125 mg 1-22 Refill(s) l oral tablet 07:34: Leland n isosorbide 0 No 0 Memoria dinitrate 1-22 Refill(s) l 20 mg oral 07:34: Vinnie tablet levothyroxi No 0 Memori a ne 75 mcg 1-22 Refill(s) l (0.075 mg) 07:34: Lead oral tablet warfarin No 0 Memoria 7.5 mg oral 1-22 Refill(s) l tablet 07:34: Lead 00 carvedilol No 0 Memoria 3.125 mg 1-22 Refill(s) l oral tablet 07:34: Leland n isosorbide 0 No 0 Memoria dinitrate 1-22 Refill(s) l 20 mg oral 07:34: Lead tablet levothyroxi No 0 Memori a ne 75 mcg 1-22 Refill(s) l (0.075 mg) 07:34: Lead oral tablet warfarin No 0 Memoria 7.5 mg oral 1-22 Refill(s) l tablet 07:34: Lead 00 carvedilol 0 No 0 Memoria 3.125 mg 1-22 Refill(s) l oral tablet 07:34: Leland n isosorbide 0 No 0 Memoria dinitrate 1-22 Refill(s) l 20 mg oral 07:34: Vinnie tablet levothyroxi 0 No 0 Memori a ne 75 mcg 1-22 Refill(s) l (0.075 mg) 07:34: Vinnie oral tablet warfarin No 0 Memoria 7.5 mg oral 1-22 Refill(s) l tablet 07:34: Lead 00 carvedilol 0 No 0 Memoria 3.125 mg 1-22 Refill(s) l oral tablet 07:34: Leland n 00 isosorbide 2014-0 No 0 Memoria dinitrate 1-22 Refill(s) l 20 mg oral 07:34: Lead tablet 00 levothyroxi No 0 Memori a ne 75 mcg 1-22 Refill(s) l (0.075 mg) 07:34: Vinnie oral tablet 00 warfarin No 0 Memoria 7.5 mg oral 1-22 Refill(s) l tablet 07:34: Vinnie 00 carvedilol No 0 Memoria 3.125 mg 1-22 Refill(s) l oral tablet 07:34: Leland n 00 isosorbide No 0 Memoria dinitrate 1-22 Refill(s) l 20 mg oral 07:34: Lead tablet levothyroxi No 0 Memori a ne 75 mcg 1-22 Refill(s) l (0.075 mg) 07:34: Lead oral tablet 00 warfarin No 0 Memoria 7.5 mg oral 1-22 Refill(s) l tablet 07:34: Lead 00 carvedilol No 0 Memoria 3.125 mg 1-22 Refill(s) l oral tablet 07:34: Leland n 00 isosorbide 0 No 0 Memoria dinitrate 1-22 Refill(s) l 20 mg oral 07:34: Vinnie tablet 00 levothyroxi No 0 Memori a ne 75 mcg 1-22 Refill(s) l (0.075 mg) 07:34: Vinnie oral tablet 00 warfarin No 0 Memoria 7.5 mg oral 1-22 Refill(s) l tablet 07:34: Vinnie 00 carvedilol 0 No 0 Memoria 3.125 mg 1-22 Refill(s) l oral tablet 07:34: Leland n 00 isosorbide 0 No 0 Memoria dinitrate 1-22 Refill(s) l 20 mg oral 07:34: Lead tablet 00 levothyroxi 0 No 0 Memori a ne 75 mcg 1-22 Refill(s) l (0.075 mg) 07:34: Vinnie oral tablet 00 warfarin No 0 Memoria 7.5 mg oral 1-22 Refill(s) l tablet 07:34: Vinnie 00 carvedilol 2013-0 No 0 Memoria 3.125 mg 1-22 Refill(s) l oral tablet 07:34: Leland n isosorbide 2013-0 No 0 Memoria dinitrate 1-22 Refill(s) l 20 mg oral 07:34: Lead tablet 00 levothyroxi 2013-0 No 0 Memori a ne 75 mcg 1-22 Refill(s) l (0.075 mg) 07:34: Vinnie oral tablet 00 warfarin 2013-0 No 0 Memoria 7.5 mg oral 1-22 Refill(s) l tablet 07:34: Vinnie 00 carvedilol 2013-0 No 0 Memoria 3.125 mg 1-22 Refill(s) l oral tablet 07:34: Leland n isosorbide 2013-0 No 0 Memoria dinitrate 1-22 Refill(s) l 20 mg oral 07:34: Lead tablet 00 levothyroxi 2013-0 No 0 Memori a ne 75 mcg 1-22 Refill(s) l (0.075 mg) 07:34: Vinnie oral tablet 00 warfarin 2013-0 No 0 Memoria 7.5 mg oral 1-22 Refill(s) l tablet 07:34: Lead carvedilol 2013-0 No 0 Memoria 3.125 mg 1-22 Refill(s) l oral tablet 07:34: Leland n isosorbide 2013-0 No 0 Memoria dinitrate 1-22 Refill(s) l 20 mg oral 07:34: Lead tablet hydrALAZINE 2013-0 No 0 Memori a 25 mg oral 1-22 Refill(s) l tablet 07:33: Lead amLODIPine 2013-0 No 0 Memoria 5 mg oral 1-22 Refill(s) l tablet 07:33: Vinnie hydrALAZINE 2013-0 No 0 Memori a 25 mg oral 1-22 Refill(s) l tablet 07:33: Lead amLODIPine 2013-0 No 0 Memoria 5 mg oral 1-22 Refill(s) l tablet 07:33: Lead hydrALAZINE 2013-0 No 0 Memori a 25 mg oral 1-22 Refill(s) l tablet 07:33: Vinnie amLODIPine 2013-0 No 0 Memoria 5 mg oral 1-22 Refill(s) l tablet 07:33: hydrALAZINE 2013-0 No 0 Memori a 25 mg oral 1-22 Refill(s) l tablet 07:33: amLODIPine 2013-0 No 0 Memoria 5 mg oral 1-22 Refill(s) l tablet 07:33: hydrALAZINE 2013-0 No 0 Memori a 25 mg oral 1-22 Refill(s) l tablet 07:33: amLODIPine 2013-0 No 0 Memoria 5 mg oral 1-22 Refill(s) l tablet 07:33: hydrALAZINE 2013-0 No 0 Memori a 25 mg oral 1-22 Refill(s) l tablet 07:33: amLODIPine 2013-0 No 0 Memoria 5 mg oral 1-22 Refill(s) l tablet 07:33: hydrALAZINE 2013-0 No 0 Memori a 25 mg oral 1-22 Refill(s) l tablet 07:33: amLODIPine 2013-0 No 0 Memoria 5 mg oral 1-22 Refill(s) l tablet 07:33: hydrALAZINE 2013-0 No 0 Memori a 25 mg oral 1-22 Refill(s) l tablet 07:33: amLODIPine 2013-0 No 0 Memoria 5 mg oral 1-22 Refill(s) l tablet 07:33: hydrALAZINE 2013-0 No 0 Memori a 25 mg oral 1-22 Refill(s) l tablet 07:33: amLODIPine 2013-0 No 0 Memoria 5 mg oral 1-22 Refill(s) l tablet 07:33: hydrALAZINE 2013-0 No 0 Memori a 25 mg oral 1-22 Refill(s) l tablet 07:33: amLODIPine 2013-0 No 0 Memoria 5 mg oral 1-22 Refill(s) l tablet 07:33: hydrALAZINE 2013-0 No 0 Memori a 25 mg oral 1-22 Refill(s) l tablet 07:33: amLODIPine 2013-0 No 0 Memoria 5 mg oral 1-22 Refill(s) l tablet 07:33: hydrALAZINE 2013-0 No 0 Memori a 25 mg oral 1-22 Refill(s) l tablet 07:33: amLODIPine 2013-0 No 0 Memoria 5 mg oral 1-22 Refill(s) l tablet 07:33: hydrALAZINE 2013-0 No 0 Memori a 25 mg oral 1-22 Refill(s) l tablet 07:33: amLODIPine 2013-0 No 0 Memoria 5 mg oral 1-22 Refill(s) l tablet 07:33: hydrALAZINE 2013-0 No 0 Memori a 25 mg oral 1-22 Refill(s) l tablet 07:33: amLODIPine 2013-0 No 0 Memoria 5 mg oral 1-22 Refill(s) l tablet 07:33: hydrALAZINE 2013-0 No 0 Memori a 25 mg oral 1-22 Refill(s) l tablet 07:33: amLODIPine 2013-0 No 0 Memoria 5 mg oral 1-22 Refill(s) l tablet 07:33: hydrALAZINE 2013-0 No 0 Memori a 25 mg oral 1-22 Refill(s) l tablet 07:33: amLODIPine 2013-0 No 0 Memoria 5 mg oral 1-22 Refill(s) l tablet 07:33: hydrALAZINE 2013-0 No 0 Memori a 25 mg oral 1-22 Refill(s) l tablet 07:33: amLODIPine 2013-0 No 0 Memoria 5 mg oral 1-22 Refill(s) l tablet 07:33: hydrALAZINE 2013-0 No 0 Memori a 25 mg oral 1-22 Refill(s) l tablet 07:33: amLODIPine 2013-0 No 0 Memoria 5 mg oral 1-22 Refill(s) l tablet 07:33: hydrALAZINE 2013-0 No 0 Memori a 25 mg oral 1-22 Refill(s) l tablet 07:33: amLODIPine 2013-0 No 0 Memoria 5 mg oral 1-22 Refill(s) l tablet 07:33: hydrALAZINE 2013-0 No 0 Memori a 25 mg oral 1-22 Refill(s) l tablet 07:33: amLODIPine 2013-0 No 0 Memoria 5 mg oral 1-22 Refill(s) l tablet 07:33: hydrALAZINE 2013-0 No 0 Memori a 25 mg oral 1-22 Refill(s) l tablet 07:33: amLODIPine 2013-0 No 0 Memoria 5 mg oral 1-22 Refill(s) l tablet 07:33: hydrALAZINE 0 No 0 Memori a 25 mg oral 1-22 Refill(s) l tablet 07:33: amLODIPine 2013-0 No 0 Memoria 5 mg oral 1-22 Refill(s) l tablet 07:33: hydrALAZINE 0 No 0 Memori a 25 mg oral 1-22 Refill(s) l tablet 07:33: amLODIPine 2013-0 No 0 Memoria 5 mg oral 1-22 Refill(s) l tablet 07:33: hydrALAZINE 0 No 0 Memori a 25 mg oral 1-22 Refill(s) l tablet 07:33: amLODIPine 2013-0 No 0 Memoria 5 mg oral 1-22 Refill(s) l tablet 07:33: hydrALAZINE 2013-0 No 0 Memori a 25 mg oral 1-22 Refill(s) l tablet 07:33: amLODIPine 2013-0 No 0 Memoria 5 mg oral 1-22 Refill(s) l tablet 07:33: hydrALAZINE 2013-0 No 0 Memori a 25 mg oral 1-22 Refill(s) l tablet 07:33: amLODIPine 2013-0 No 0 Memoria 5 mg oral 1-22 Refill(s) l tablet 07:33: hydrALAZINE 2013-0 No 0 Memori a 25 mg oral 1-22 Refill(s) l tablet 07:33: amLODIPine 2013-0 No 0 Memoria 5 mg oral 1-22 Refill(s) l tablet 07:33: fentanyl 2013-0 No Lucila Y 25 Memor ia 1-22 [place] microgram, l 07:26: Route: Lead 00 IVP, ONCE, Dosing Weight 78.182, kg, Priority: STAT, Start date: 10/06/13 1:26:00, Stop date: 10/06/13 1:26:00 fentanyl 2014-0 No Lucila Y 25 Memor ia 1-22 [place] microgram, l 07:26: Route: Vinnie 00 IVP, ONCE, Dosing Weight 78.182, kg, Priority: STAT, Start date: 10/06/13 1:26:00, Stop date: 10/06/13 1:26:00 fentanyl 2014-0 No Lucila Y 25 Memor ia 1-22 [place] microgram, l 07:26: Route: Vinnie 00 IVP, ONCE, Dosing Weight 78.182, kg, Priority: STAT, Start date: 10/06/13 1:26:00, Stop date: 10/06/13 1:26:00 fentanyl 2013-0 No Lucila Y 25 Memor ia 1-22 [place] microgram, l 07:26: Route: Vinnie 00 IVP, ONCE, Dosing Weight 78.182, kg, Priority: STAT, Start date: 10/06/13 1:26:00, Stop date: 10/06/13 1:26:00 fentanyl 2013-0 No Lucila Y 25 Memor ia 1-22 [place] microgram, l 07:26: Route: Vinnie 00 IVP, ONCE, Dosing Weight 78.182, kg, Priority: STAT, Start date: 10/06/13 1:26:00, Stop date: 10/06/13 1:26:00 fentanyl 2013-0 No Lucila Y 25 Memor ia 1-22 [place] microgram, l 07:26: Route: Vinnie 00 IVP, ONCE, Dosing Weight 78.182, kg, Priority: STAT, Start date: 10/06/13 1:26:00, Stop date: 10/06/13 1:26:00 fentanyl 2013-0 No Lucila Y 25 Memor ia 1-22 [place] microgram, l 07:26: Route: Vinnie 00 IVP, ONCE, Dosing Weight 78.182, kg, Priority: STAT, Start date: 10/06/13 1:26:00, Stop date: 10/06/13 1:26:00 fentanyl 2013-0 No Lucila Y 25 Memor ia 1-22 [place] microgram, l 07:26: Route: Vinnie 00 IVP, ONCE, Dosing Weight 78.182, kg, Priority: STAT, Start date: 10/06/13 1:26:00, Stop date: 10/06/13 1:26:00 fentanyl 2014-0 No Lucila Y 25 Memor ia 1-22 [place] microgram, l 07:26: Route: Lead 00 IVP, ONCE, Dosing Weight 78.182, kg, Priority: STAT, Start date: 10/06/13 1:26:00, Stop date: 10/06/13 1:26:00 fentanyl 2013-0 No Lucila Y 25 Memor ia 1-22 [place] microgram, l 07:26: Route: Lead 00 IVP, ONCE, Dosing Weight 78.182, kg, Priority: STAT, Start date: 10/06/13 1:26:00, Stop date: 10/06/13 1:26:00 fentanyl 2013-0 No Lucila Y 25 Memor ia 1-22 [place] microgram, l 07:26: Route: Lead 00 IVP, ONCE, Dosing Weight 78.182, kg, Priority: STAT, Start date: 10/06/13 1:26:00, Stop date: 10/06/13 1:26:00 fentanyl 2014-0 No Lucila Y 25 Memor ia 1-22 [place] microgram, l 07:26: Route: Vinnie 00 IVP, ONCE, Dosing Weight 78.182, kg, Priority: STAT, Start date: 10/06/13 1:26:00, Stop date: 10/06/13 1:26:00 fentanyl 2014-0 No Lucila Y 25 Memor ia 1-22 [place] microgram, l 07:26: Route: Vinnie 00 IVP, ONCE, Dosing Weight 78.182, kg, Priority: STAT, Start date: 10/06/13 1:26:00, Stop date: 10/06/13 1:26:00 fentanyl 2014-0 No Lucila Y 25 Memor ia 1-22 [place] microgram, l 07:26: Route: Lead 00 IVP, ONCE, Dosing Weight 78.182, kg, Priority: STAT, Start date: 10/06/13 1:26:00, Stop date: 10/06/13 1:26:00 fentanyl 2014-0 No Lucila Y 25 Memor ia 1-22 [place] microgram, l 07:26: Route: Vinnie 00 IVP, ONCE, Dosing Weight 78.182, kg, Priority: STAT, Start date: 10/06/13 1:26:00, Stop date: 10/06/13 1:26:00 fentanyl 2014-0 No Lucila Y 25 Memor ia 1-22 [place] microgram, l 07:26: Route: Vinnie 00 IVP, ONCE, Dosing Weight 78.182, kg, Priority: STAT, Start date: 10/06/13 1:26:00, Stop date: 10/06/13 1:26:00 fentanyl 2014-0 No Lucila Y 25 Memor ia 1-22 [place] microgram, l 07:26: Route: Vinnie 00 IVP, ONCE, Dosing Weight 78.182, kg, Priority: STAT, Start date: 10/06/13 1:26:00, Stop date: 10/06/13 1:26:00 fentanyl 2014-0 No Lucila Y 25 Memor ia 1-22 [place] microgram, l 07:26: Route: Lead 00 IVP, ONCE, Dosing Weight 78.182, kg, Priority: STAT, Start date: 10/06/13 1:26:00, Stop date: 10/06/13 1:26:00 fentanyl 2014-0 No Lucila Y 25 Memor ia 1-22 [place] microgram, l 07:26: Route: Vinnie 00 IVP, ONCE, Dosing Weight 78.182, kg, Priority: STAT, Start date: 10/06/13 1:26:00, Stop date: 10/06/13 1:26:00 fentanyl 2014-0 No Lucila Y 25 Memor ia 1-22 [place] microgram, l 07:26: Route: Vinnie 00 IVP, ONCE, Dosing Weight 78.182, kg, Priority: STAT, Start date: 10/06/13 1:26:00, Stop date: 10/06/13 1:26:00 fentanyl 2014-0 No Lucila Y 25 Memor ia 1-22 [place] microgram, l 07:26: Route: Lead 00 IVP, ONCE, Dosing Weight 78.182, kg, Priority: STAT, Start date: 10/06/13 1:26:00, Stop date: 10/06/13 1:26:00 fentanyl 2013-0 No Lucila Y 25 Memor ia 1-22 [place] microgram, l 07:26: Route: Vinnie 00 IVP, ONCE, Dosing Weight 78.182, kg, Priority: STAT, Start date: 10/06/13 1:26:00, Stop date: 10/06/13 1:26:00 fentanyl 2013-0 No Lucila Y 25 Memor ia 1-22 [place] microgram, l 07:26: Route: Vinnie 00 IVP, ONCE, Dosing Weight 78.182, kg, Priority: STAT, Start date: 10/06/13 1:26:00, Stop date: 10/06/13 1:26:00 fentanyl 2014-0 No Lucila Y 25 Memor ia 1-22 [place] microgram, l 07:26: Route: Vinnie 00 IVP, ONCE, Dosing Weight 78.182, kg, Priority: STAT, Start date: 10/06/13 1:26:00, Stop date: 10/06/13 1:26:00 fentanyl 2013-0 No Lucila Y 25 Memor ia 1-22 [place] microgram, l 07:26: Route: Vinnie 00 IVP, ONCE, Dosing Weight 78.182, kg, Priority: STAT, Start date: 10/06/13 1:26:00, Stop date: 10/06/13 1:26:00 fentanyl 2014-0 No Lucila Y 25 Memor ia 1-22 [place] microgram, l 07:26: Route: Lead 00 IVP, ONCE, Dosing Weight 78.182, kg, Priority: STAT, Start date: 10/06/13 1:26:00, Stop date: 10/06/13 1:26:00 fentanyl 2013-0 No Lucila Y 25 Memor ia 1-22 [place] microgram, l 07:26: Route: Vinnie 00 IVP, ONCE, Dosing Weight 78.182, kg, Priority: STAT, Start date: 10/06/13 1:26:00, Stop date: 10/06/13 1:26:00 Sodium 2014-0 No Lucila Y 1,000 mL, Me moria Chloride 1-22 [place] Rate: 125 l 0.9% IV 06:36: ml/hr, Lead 1,000 mL 00 Infuse over: 8 hr, Route: IV, Dosing Weight 78.182 kg, Total Volume: 1,000, Start date: 10/06/13 0:36:00, Duration: 30 day, Stop date: 11/05/13 0:35:00 Sodium 2014-0 No Lucila Y 1,000 mL, Me moria Chloride 1-22 [place] Rate: 125 l 0.9% IV 06:36: ml/hr, Vinnie 1,000 mL 00 Infuse over: 8 hr, Route: IV, Dosing Weight 78.182 kg, Total Volume: 1,000, Start date: 10/06/13 0:36:00, Duration: 30 day, Stop date: 11/05/13 0:35:00 Sodium 2014-0 No Lucila Y 1,000 mL, Me moria Chloride 1-22 [place] Rate: 125 l 0.9% IV 06:36: ml/hr, Vinnie 1,000 mL 00 Infuse over: 8 hr, Route: IV, Dosing Weight 78.182 kg, Total Volume: 1,000, Start date: 10/06/13 0:36:00, Duration: 30 day, Stop date: 11/05/13 0:35:00 Sodium 2014-0 No Lucila Y 1,000 mL, Me moria Chloride 1-22 [place] Rate: 125 l 0.9% IV 06:36: ml/hr, Lead 1,000 mL 00 Infuse over: 8 hr, Route: IV, Dosing Weight 78.182 kg, Total Volume: 1,000, Start date: 10/06/13 0:36:00, Duration: 30 day, Stop date: 11/05/13 0:35:00 Sodium 2014-0 No Lucila Y 1,000 mL, Me moria Chloride 1-22 [place] Rate: 125 l 0.9% IV 06:36: ml/hr, Vinnie 1,000 mL 00 Infuse over: 8 hr, Route: IV, Dosing Weight 78.182 kg, Total Volume: 1,000, Start date: 10/06/13 0:36:00, Duration: 30 day, Stop date: 11/05/13 0:35:00 Sodium 2014-0 No Lucila Y 1,000 mL, Me moria Chloride 1-22 [place] Rate: 125 l 0.9% IV 06:36: ml/hr, Lead 1,000 mL 00 Infuse over: 8 hr, Route: IV, Dosing Weight 78.182 kg, Total Volume: 1,000, Start date: 10/06/13 0:36:00, Duration: 30 day, Stop date: 11/05/13 0:35:00 Sodium 2013-0 No Lucila Y 1,000 mL, Me moria Chloride 1-22 [place] Rate: 125 l 0.9% IV 06:36: ml/hr, Vinnie 1,000 mL 00 Infuse over: 8 hr, Route: IV, Dosing Weight 78.182 kg, Total Volume: 1,000, Start date: 10/06/13 0:36:00, Duration: 30 day, Stop date: 11/05/13 0:35:00 Sodium 2013-0 No Lucila Y 1,000 mL, Me moria Chloride 1-22 [place] Rate: 125 l 0.9% IV 06:36: ml/hr, Vinnie 1,000 mL 00 Infuse over: 8 hr, Route: IV, Dosing Weight 78.182 kg, Total Volume: 1,000, Start date: 10/06/13 0:36:00, Duration: 30 day, Stop date: 11/05/13 0:35:00 Sodium 2013-0 No Lucila Y 1,000 mL, Me moria Chloride 1-22 [place] Rate: 125 l 0.9% IV 06:36: ml/hr, Lead 1,000 mL 00 Infuse over: 8 hr, Route: IV, Dosing Weight 78.182 kg, Total Volume: 1,000, Start date: 10/06/13 0:36:00, Duration: 30 day, Stop date: 11/05/13 0:35:00 Sodium 2013-0 No Lucila Y 1,000 mL, Me moria Chloride 1-22 [place] Rate: 125 l 0.9% IV 06:36: ml/hr, Vinnie 1,000 mL 00 Infuse over: 8 hr, Route: IV, Dosing Weight 78.182 kg, Total Volume: 1,000, Start date: 10/06/13 0:36:00, Duration: 30 day, Stop date: 11/05/13 0:35:00 Sodium 2014-0 No Lucila Y 1,000 mL, Me moria Chloride 1-22 [place] Rate: 125 l 0.9% IV 06:36: ml/hr, Vinnie 1,000 mL 00 Infuse over: 8 hr, Route: IV, Dosing Weight 78.182 kg, Total Volume: 1,000, Start date: 10/06/13 0:36:00, Duration: 30 day, Stop date: 11/05/13 0:35:00 Sodium 2014-0 No Lucila Y 1,000 mL, Me moria Chloride 1-22 [place] Rate: 125 l 0.9% IV 06:36: ml/hr, Vinnie 1,000 mL 00 Infuse over: 8 hr, Route: IV, Dosing Weight 78.182 kg, Total Volume: 1,000, Start date: 10/06/13 0:36:00, Duration: 30 day, Stop date: 11/05/13 0:35:00 Sodium 2014-0 No Lucila Y 1,000 mL, Me moria Chloride 1-22 [place] Rate: 125 l 0.9% IV 06:36: ml/hr, Lead 1,000 mL 00 Infuse over: 8 hr, Route: IV, Dosing Weight 78.182 kg, Total Volume: 1,000, Start date: 10/06/13 0:36:00, Duration: 30 day, Stop date: 11/05/13 0:35:00 Sodium 2014-0 No Lucila Y 1,000 mL, Me moria Chloride 1-22 [place] Rate: 125 l 0.9% IV 06:36: ml/hr, Lead 1,000 mL 00 Infuse over: 8 hr, Route: IV, Dosing Weight 78.182 kg, Total Volume: 1,000, Start date: 10/06/13 0:36:00, Duration: 30 day, Stop date: 11/05/13 0:35:00 Sodium 2014-0 No Lucila Y 1,000 mL, Me moria Chloride 1-22 [place] Rate: 125 l 0.9% IV 06:36: ml/hr, Lead 1,000 mL 00 Infuse over: 8 hr, Route: IV, Dosing Weight 78.182 kg, Total Volume: 1,000, Start date: 10/06/13 0:36:00, Duration: 30 day, Stop date: 11/05/13 0:35:00 Sodium 2014-0 No Lucila Y 1,000 mL, Me moria Chloride 1-22 [place] Rate: 125 l 0.9% IV 06:36: ml/hr, Lead 1,000 mL 00 Infuse over: 8 hr, Route: IV, Dosing Weight 78.182 kg, Total Volume: 1,000, Start date: 10/06/13 0:36:00, Duration: 30 day, Stop date: 11/05/13 0:35:00 Sodium 2014-0 No Lucila Y 1,000 mL, Me moria Chloride 1-22 [place] Rate: 125 l 0.9% IV 06:36: ml/hr, Lead 1,000 mL 00 Infuse over: 8 hr, Route: IV, Dosing Weight 78.182 kg, Total Volume: 1,000, Start date: 10/06/13 0:36:00, Duration: 30 day, Stop date: 11/05/13 0:35:00 Sodium 2013-0 No Lucila Y 1,000 mL, Me moria Chloride 1-22 [place] Rate: 125 l 0.9% IV 06:36: ml/hr, Lead 1,000 mL 00 Infuse over: 8 hr, Route: IV, Dosing Weight 78.182 kg, Total Volume: 1,000, Start date: 10/06/13 0:36:00, Duration: 30 day, Stop date: 11/05/13 0:35:00 Sodium 2013-0 No Lucila Y 1,000 mL, Me moria Chloride 1-22 [place] Rate: 125 l 0.9% IV 06:36: ml/hr, Vinnie 1,000 mL 00 Infuse over: 8 hr, Route: IV, Dosing Weight 78.182 kg, Total Volume: 1,000, Start date: 10/06/13 0:36:00, Duration: 30 day, Stop date: 11/05/13 0:35:00 Sodium 2014-0 No Lucila Y 1,000 mL, Me moria Chloride 1-22 [place] Rate: 125 l 0.9% IV 06:36: ml/hr, Vinnie 1,000 mL 00 Infuse over: 8 hr, Route: IV, Dosing Weight 78.182 kg, Total Volume: 1,000, Start date: 10/06/13 0:36:00, Duration: 30 day, Stop date: 11/05/13 0:35:00 Sodium 2014-0 No Lucila Y 1,000 mL, Me moria Chloride 1-22 [place] Rate: 125 l 0.9% IV 06:36: ml/hr, Lead 1,000 mL 00 Infuse over: 8 hr, Route: IV, Dosing Weight 78.182 kg, Total Volume: 1,000, Start date: 10/06/13 0:36:00, Duration: 30 day, Stop date: 11/05/13 0:35:00 Sodium 2014-0 No Lucila Y 1,000 mL, Me moria Chloride 1-22 [place] Rate: 125 l 0.9% IV 06:36: ml/hr, Lead 1,000 mL 00 Infuse over: 8 hr, Route: IV, Dosing Weight 78.182 kg, Total Volume: 1,000, Start date: 10/06/13 0:36:00, Duration: 30 day, Stop date: 11/05/13 0:35:00 Sodium 2013-0 No Lucila Y 1,000 mL, Me moria Chloride 1-22 [place] Rate: 125 l 0.9% IV 06:36: ml/hr, Lead 1,000 mL 00 Infuse over: 8 hr, Route: IV, Dosing Weight 78.182 kg, Total Volume: 1,000, Start date: 10/06/13 0:36:00, Duration: 30 day, Stop date: 11/05/13 0:35:00 Sodium 2013-0 No Lucila Y 1,000 mL, Me moria Chloride 1-22 [place] Rate: 125 l 0.9% IV 06:36: ml/hr, Lead 1,000 mL 00 Infuse over: 8 hr, Route: IV, Dosing Weight 78.182 kg, Total Volume: 1,000, Start date: 10/06/13 0:36:00, Duration: 30 day, Stop date: 11/05/13 0:35:00 Sodium 2014-0 No Lucila Y 1,000 mL, Me moria Chloride 1-22 [place] Rate: 125 l 0.9% IV 06:36: ml/hr, Lead 1,000 mL 00 Infuse over: 8 hr, Route: IV, Dosing Weight 78.182 kg, Total Volume: 1,000, Start date: 10/06/13 0:36:00, Duration: 30 day, Stop date: 11/05/13 0:35:00 Sodium 2014-0 No Lucila Y 1,000 mL, Me moria Chloride 1-22 [place] Rate: 125 l 0.9% IV 06:36: ml/hr, Lead 1,000 mL 00 Infuse over: 8 hr, Route: IV, Dosing Weight 78.182 kg, Total Volume: 1,000, Start date: 10/06/13 0:36:00, Duration: 30 day, Stop date: 11/05/13 0:35:00 Sodium 2014-0 No Lucila Y 1,000 mL, Me moria Chloride - [place] Rate: 125 l 0.9% IV 06:36: ml/hr, Vinnie 1,000 mL 00 Infuse over: 8 hr, Route: IV, Dosing Weight 78.182 kg, Total Volume: 1,000, Start date: 10/06/13 0:36:00, Duration: 30 day, Stop date: 11/05/13 0:35:00 Montelukast Montelukast No Montelukas Sodium Sodium t Sodium Cefdinir Cefdinir No Cefdinir Magnesium Magnesium No Magnesium Pulmicort Pulmicort No Pulmicort Flexhaler Flexhaler Flexhaler Cefdinir Cefdinir No Cefdinir Cefdinir Cefdinir No Cefdinir Fluticasone Fluticasone No Fluticason Propionate Propionate e Propionate Levothyroxi Levothyroxi No Levothyrox ne Sodium ne Sodium ine Sodium Montelukast Montelukast No Montelukas Sodium Sodium t Sodium Cefdinir Cefdinir No Cefdinir glipiZIDE glipiZIDE No glipiZIDE Fish Oil Fish Oil No Fish Oil Potassium Potassium No Potassium traMADol traMADol No traMADol HCl HCl HCl Carvedilol Carvedilol No Carvedilol Magnesium Magnesium No Magnesium Magnesium Magnesium No Magnesium Pulmicort Pulmicort No Pulmicort Flexhaler Flexhaler Flexhaler Cefdinir Cefdinir No Cefdinir Cefdinir Cefdinir No Cefdinir Fluticasone Fluticasone No Fluticason Propionate Propionate e Propionate Levothyroxi Levothyroxi No Levothyrox ne Sodium ne Sodium ine Sodium glipiZIDE glipiZIDE No glipiZIDE Montelukast Montelukast No Montelukas Sodium Sodium t Sodium glipiZIDE glipiZIDE No glipiZIDE Fish Oil Fish Oil No Fish Oil Potassium Potassium No Potassium traMADol traMADol No traMADol HCl HCl HCl Carvedilol Carvedilol No Carvedilol Levothyroxi Levothyroxi No Levothyrox ne Sodium ne Sodium ine Sodium Fish Oil Fish Oil No Fish Oil Fluticasone Fluticasone No Fluticason Propionate Propionate e Propionate Pulmicort Pulmicort No Pulmicort Flexhaler Flexhaler Flexhaler Montelukast Montelukast No Montelukas Sodium Sodium t Sodium Potassium Potassium No Potassium Cefdinir Cefdinir No Cefdinir Carvedilol Carvedilol No Carvedilol traMADol traMADol No traMADol HCl HCl HCl Cefdinir Cefdinir No Cefdinir Montelukast Montelukast No Montelukas Sodium Sodium t Sodium Cefdinir Cefdinir No Cefdinir Magnesium Magnesium No Magnesium Fluticasone Fluticasone No Fluticason Propionate Propionate e Propionate Fish Oil Fish Oil No Fish Oil Carvedilol Carvedilol No Carvedilol Potassium Potassium No Potassium Levothyroxi Levothyroxi No Levothyrox ne Sodium ne Sodium ine Sodium glipiZIDE glipiZIDE No glipiZIDE Pulmicort Pulmicort No Pulmicort Flexhaler Flexhaler Flexhaler traMADol traMADol No traMADol HCl HCl HCl Pulmicort Pulmicort No Pulmicort Flexhaler Flexhaler Flexhaler Fish Oil Fish Oil No Fish Oil Levothyroxi Levothyroxi No Levothyrox ne Sodium ne Sodium ine Sodium glipiZIDE glipiZIDE No glipiZIDE Magnesium Magnesium No Magnesium Cefdinir Cefdinir No Cefdinir Carvedilol Carvedilol No Carvedilol traMADol traMADol No traMADol HCl HCl HCl Fluticasone Fluticasone No Fluticason Propionate Propionate e Propionate Potassium Potassium No Potassium Vital Signs Vital Name Observation Time Observation Value Comments Source Heart rate 2023-07-18 20:33:00 50 /min [facility] Body temperature 2023-07-18 20:33:00 37.89 Maggie [facility] Respiratory rate 2023-07-18 20:33:00 16 /min [facility] Body height 2023-07-18 20:33:00 165.1 cm [facility] Body weight 2023-07-18 20:33:00 69.4 kg [facility] BMI 2023-07-18 20:33:00 25.46 kg/m2 [facility] Oxygen saturation in 2023-07-18 20:33:00 90 /min [facility] Arterial blood by [facility] Pulse oximetry Branch Systolic blood 2022-12-05 20:23:00 146 mm[Hg] Univer [facility]ity of pressure [facility] Diastolic blood 2022-12-05 20:23:00 66 mm[Hg] [facility] of [facility] Heart rate 2022-12-05 20:23:00 74 /min [facility] Body temperature 2022-12-05 20:23:00 36.78 [facility] Respiratory rate 2022-12-05 20:23:00 16 /min [facility] ersity [facility] Oxygen saturation in 2022-12-05 20:23:00 91 /min [facility] Arterial blood by [facility] Pulse oximetry Branch Body weight 2022-12-04 08:22:00 69.491 kg [facility] BMI 2022-12-04 08:22:00 25.49 kg/m2 [facility] Body height 2022-12-03 01:38:00 165.1 cm [facility] height 2022-09-26 13:00:00 63 [in_i] [facility] weight 2022-09-26 13:00:00 180 [lb_av] [facility] temperature 2022-09-26 13:00:00 98.0 [degF] [facility] bmi 2022-09-26 13:00:00 31.88 kg/m2 [facility] blood pressure 2022-09-26 13:00:00 130 mm[Hg] [facility] - systolic [facility] blood pressure 2022-09-26 13:00:00 80 mm[Hg] [facility] - diastolic [facility] Systolic blood 2022-09-20 21:05:00 144 mm[Hg] [facility] Diastolic blood 2022-09-20 21:05:00 77 mm[Hg] [facility] Heart rate 2022-09-20 21:05:00 70 [facility] 2022-09-20 21:05:00 [facility]56 [facility] 2022-09-20 21:05:00 12 /min [facility] 2022-09-20 21:05:00 157.5 cm [facility] Body weight 2022-09-20 21:05:00 61.236 kg [facility] BMI 2022-09-20 21:05:00 24.69 kg/m2 [facility] Oxygen saturation in 2022-09-20 21:05:00 90 /min [facility] Arterial blood by [facility] Pulse oximetry Branch height 2022-09-05 09:30:00 63 [in_i] [facility] weight 2022-09-05 09:30:00 180 [lb_av] [facility] temperature 2022-09-05 09:30:00 97.9 [degF] [facility] bmi 2022-09-05 09:30:00 31.88 kg/m2 [facility] blood pressure 2022-09-05 09:30:00 135 mm[Hg] [facility] - systolic [facility] blood pressure 2022-09-05 09:30:00 82 mm[Hg] [facility] - diastolic [facility] Systolic blood 2022-08-26 20:05:00 123 mm[Hg] Univer sity of [facility] Diastolic blood 2022-08-26 20:05:00 63 mm[Hg] Unive rsity of [facility] Heart rate 2022-08-26 20:05:00 75 /min Universi ty of [facility] Body temperature 2022-08-26 20:05:00 37.17 Maggie Univ ersity of [facility] Respiratory rate 2022-08-26 20:05:00 18 /min Univ ersity of [facility] Body weight 2022-08-26 20:05:00 61.236 kg Universi ty of [facility] BMI 2022-08-26 20:05:00 22.47 kg/m2 Universi ty of [facility] height 2022-08-26 09:00:00 63 [in_i] [facility] weight 2022-08-26 09:00:00 180 [lb_av] [facility] temperature 2022-08-26 09:00:00 98.2 [degF] [facility] bmi 2022-08-26 09:00:00 31.88 kg/m2 [facility] blood pressure 2022-08-26 09:00:00 136 mm[Hg] [facility] - [facility] blood pressure 2022-08-26 09:00:00 84 mm[Hg] [facility] - diastolic [facility] Systolic blood 2022-08-22 12:20:00 139 mm[Hg] Univer sity of [facility] Diastolic blood 2022-08-22 12:20:00 68 mm[Hg] Unive rsity of [facility] Heart rate 2022-08-22 12:20:00 66 /min Universi ty of [facility] Body temperature 2022-08-22 12:20:00 36.44 Maggie Univ ersity of [facility] Respiratory rate 2022-08-22 12:20:00 18 /min Univ ersity [facility] Body height 2022-08-22 12:20:00 165.1 cm Universi ty of [facility] Body weight 2022-08-22 12:20:00 74.39 kg Universi ty of [facility] BMI 2022-08-22 12:20:00 27.29 kg/m2 Universi ty [facility] Oxygen saturation in 2022-08-22 12:20:00 94 /min [facility] Arterial blood by [facility] Pulse oximetry Branch Body height 2022-08-21 19:09:00 165.1 cm [facility] Body weight 2022-08-21 19:09:00 74.39 kg [facility] BMI 2022-08-21 19:09:00 27.29 kg/m2 [facility] Respitory Rate 2019-03-08 17:43:00 Memori al [facility] Heart Rate 2019-03-08 17:43:00 [facility] Temperature Oral (F) 2019-03-08 17:43:00 98.2 F [facility] Systolic (mm Hg) 2019-03-08 17:43:00 Semaj rial [facility] Diastolic (mm Hg) 2019-03-08 17:43:00 Mem orial Lead Systolic (mm Hg) 2019-03-08 14:02:00 Semaj rial [facility]innie Diastolic (mm Hg) 2019-03-08 14:02:00 Mem orial Lead Respitory Rate 2019-03-08 14:02:00 Memori al Lead Temperature Oral (F) 2019-03-08 14:02:00 98.3 F [facility] Heart Rate 2019-03-08 14:02:00 [facility] Respitory Rate 2019-03-08 12:28:00 [facility] Heart Rate 2019-03-08 09:01:00 [facility] Temperature Oral (F) 2019-03-08 09:01:00 98.3 F [facility] Systolic (mm Hg) 2019-03-08 09:01:00 Semaj rial [facility]innie Diastolic (mm Hg) 2019-03-08 09:01:00 Mem o[facility] Height 2019-03-05 11:22:00 170.18 cm [facility] Weight 2019-03-05 11:22:00 [facility] BMI Calculated 2019-03-05 11:22:00 Mem[facility] Height 2019-02-26 11:15:00 170.18 cm [facility] Height 2019-02-26 07:50:00 170.18 cm [facility] Weight 2019-02-21 04:14:00 [facility] BMI Calculated 2019-02-21 04:14:00 Memori al Lead BMI Calculated 2019-02-21 00:16:00 Mem[facility] Lead Weight 2019-02-21 00:16:00 [facility] Temperature Oral (F) 2013-10-18 13:31:00 97.4 F [facility] Diastolic (mm Hg) 2013-10-18 13:31:00 Mem orial Lead Respitory Rate 2013-10-18 13:31:00 [facility] Heart Rate 2013-10-18 13:31:00 [facility] Systolic (mm Hg) 2013-10-18 13:31:00 Semaj rial [facility]innie Temperature Oral (F) 2013-10-18 10:26:00 97.5 F [facility] Respitory Rate 2013-10-18 10:26:00 Memori al Lead Heart Rate 2013-10-18 10:26:00 [facility] Diastolic (mm Hg) 2013-10-18 10:26:00 Mem orial [facility]innie Systolic (mm Hg) 2013-10-18 10:26:00 Semaj rial Lead Respitory Rate 2013-10-18 06:42:00 [facility] Temperature Oral (F) 2013-10-18 06:42:00 98.0 F [facility] Systolic (mm Hg) 2013-10-18 06:42:00 Semaj rial Lead Heart Rate 2013-10-18 06:42:00 [facility] Diastolic (mm Hg) 2013-10-18 06:42:00 Mem orial Lead Weight 2013-10-07 08:05:00 [facility] Height 2013-10-07 08:05:00 167.64 cm [facility] Weight 2013-10-06 06:08:00 [facility] Height 2013-10-06 06:08:00 167.64 cm [facility] Procedures Procedure Date / Time Performing Clinician Source Performed POCT URINALYSIS 2023-07-18 20:43:00 Rina Sy [place] o [facility] POCT MOLECULAR FLU 2023-07-18 20:37:00 Unknown, Attending Reza aguirre of [facility] PATIENT FINANCIAL 2023-07-18 19:54:11 Doctor Unassigned, Un [facility] POLICY [place] [facility] Branch POCT GLUCOSE (AUTOMATED) 2022-12-05 16:56:00 Zain Kebede versity of [facility] POCT GLUCOSE (AUTOMATED) 2022-12-05 12:50:00 Zain Kebdee [facility] MAGNESIUM 2022-12-05 09:26:00 Mauricio Adan [facility] BASIC METABOLIC PANEL (NA, 2022-12-05 09:26:00 Mauricio Adan [facility] K, CL, CO2, GLUCOSE, BUN, Medica l Branch CREATININE, CA) CBC WITH DIFF 2022-12-05 09:26:00 Mauricio Adan [facility] PROTHROMBIN TIME / INR 2022-12-05 09:26:00 Rhonda Alvarez [facility] N-TERMINAL PRO-BNP 2022-12-05 09:26:00 Mauricio Adan [facility] POCT GLUCOSE (AUTOMATED) 2022-12-05 01:59:00 Zain Kebede [facility] POCT GLUCOSE (AUTOMATED) 2022-12-04 22:46:00 Zain Kebede [facility] POCT GLUCOSE (AUTOMATED) 2022-12-04 16:43:00 Zain Kebede [facility] TRANSTHORACIC ECHO (TTE) 2022-12-04 14:13:00 Mauricio Adan [facility] COMPLETE W/ CONTRAST Medical [facility] POCT GLUCOSE (AUTOMATED) 2022-12-04 13:10:00 Zain Kebede [facility] MAGNESIUM 2022-12-04 10:28:00 Mauricio Adan [facility] TROPONIN I 2022-12-04 10:28:00 Zay Louise [facility] BASIC METABOLIC PANEL (NA, 2022-12-04 10:28:00 Mauricio Adan [facility] K, CL, CO2, GLUCOSE, BUN, Medica l Branch CREATININE, CA) CBC WITH DIFF 2022-12-04 10:28:00 Mauricio Adan [facility] PROTHROMBIN TIME / INR 2022-12-04 10:28:00 Mauricio Adan [facility] N-TERMINAL PRO-BNP 2022-12-04 10:28:00 Mauricio Adan [facility] POCT GLUCOSE (AUTOMATED) 2022-12-04 01:35:00 Zain Kebede [facility] POCT GLUCOSE (AUTOMATED) 2022-12-03 21:58:00 Zain Kebede [facility] POCT GLUCOSE (AUTOMATED) 2022-12-03 17:22:00 Zain Kebede [facility] POCT GLUCOSE (AUTOMATED) 2022-12-03 13:38:00 Zain Kebede [facility] GLYCOSYLATED HEMOGLOBIN 2022-12-03 09:18:00 Isabella Alvarado [facility] (A1C) [facility] PNEUMOCOCCAL ANTIGEN 2022-12-03 04:23:00 Zain Kebede [facility] PROCALCITONIN 2022-12-03 02:24:00 Zain Kebede [facility] RESPIRATORY PANEL BY PCR 2022-12-03 02:24:00 Zain Kebede [facility] BLOOD CULTURE SCREEN 2022-12-03 00:11:00 Kimber Morton [facility] LACTIC ACID WHOLE BLOOD 2022-12-03 00:10:00 Kimber Morton [facility] TROPONIN I 2022-12-02 22:23:00 [facility] BASIC METABOLIC PANEL (NA, 2022-12-02 22:23:00 Kimber Morton [facility] K, CL, CO2, GLUCOSE, BUN, Medica l Branch CREATININE, CA) CBC WITH DIFF 2022-12-02 22:23:00 Kimber Morton [facility] RAPID INFLUENZA A/B 2022-12-02 22:23:00 [facility] N-TERMINAL PRO-BNP 2022-12-02 22:23:00 Kimber [facility] COVID-19 (ID NOW RAPID 2022-12-02 22:23:00 Kimber Morton [facility] TESTING) Medical Branch LAB ONLY COVID 2022-12-02 22:23:00 Praveen [facility] CONSENT/REFUSAL FOR 2022-12-02 21:36:29 Doctor Unassigned, [facility] DIAGNOSIS AND TREATMENT [facility] EXTERNAL PROVIDER RECORDS 2022-12-02 05:01:00 Doctor Eliecer [facility] EXTERNAL PROVIDER RECORDS 2022-11-19 06:01:00 Doctor Gonzáles [facility] Name [facility] PATIENT QUESTIONNAIRE 2022-09-11 06:01:00 Doctor [facility] LIPASE 2022-08-22 12:29:00 Jeri Leung [facility] COMP. METABOLIC PANEL 2022-08-22 12:29:00 Jeri Leung [facility] ([id number]) [facility] CBC WITH DIFF 2022-08-22 12:29:00 Jeri Leung [facility] URINALYSIS 2022-08-22 12:29:00 Jeri Leung [facility] HOME HEALTH - OTHER 2019-05-19 05:01:00 Doctor Gonzáles [facility] AUTHORIZATION FOR RELEASE 2019-03-10 05:01:00 Doctor Gonzáles [facility] Percutaneous coronary 2011-04-16 05:00:00 Shubham Avalos intervention Ovary 1956-03-09 05:00:00 [facility] Her jin operation<sup>1</sup> Appendectomy 1955-12-07 06:00:00 [facility] Her jin Bunionectomy [facility]innie [facility] Encounters Start End Encounter Admission Attending Care Care Encounter Source Date/Time Date/Time Type Type Clinicians Facility Department ID 2022-09-26 [facility] [id number] Common 13:03:02 [id number] [facility] 2022-09-04 [facility] [id number] Common 11:02:04 [facility] 2022-08-26 [facility] [id number] Common 08:52:03 [facility] 2021-07-13 Emergency [facility] [id number] Univers 15:52:24 [facility] 2020-10-04 Inpatient EDDIE Vieira, [facility] [id number] [facility] 13:00:00 Vernon Rodriguez [facility] 2020-08-24 Inpatient EDDIE Vieira, [facility] [id number] [facility] 13:00:00 Vernon Luu [facility] 2019-02-20 Inpatient E [facility] MED [id number] MHB L 20:55:00 2023-07-21 2023-07-[address] [facility] 1.2.840.114 [id number] Univers 00:00:00 00:00[facility]00 [facility] 350.1.13.10 it y of [place] 4.2.7.2.686 Demetrio as ROHAN?BLEA [phone] [address] MEDICAL OFFICE [facility] 2023-07-18 2023-07-18 Outpatient R KERRIE [facility] [id number] Univers 15:00:00 16:00:21 RINA ity [facility] 2023-07-18 2023-07-18 Urgent Kerrie Rina [facility] 1.2.840.11 [id number] Univers 15:00:00 16:00:21 Care Unknown, [facility] HEALTH 350.1.13.10 ity of [place] 4.2.7.2.686 Demetrio as ROHAN?BLEA [phone] [address] MEDICAL OFFICE [facility] 2023-07-18 2023-07-18 Orders Doctor DOMINGA 1.2.840.114 [id number] Univers 00:00:00 00:00:00 Only Unassigned, BLAKE 350.1.13.10 ity of [place] [facility] 4.2.7.2.686 Demetrio as [id number] [facility] 009 Branch 2022-12-06 2022-12-06 Transition ROBERT Whitfield 1.2.840.114 [id number] Univers 00:00:00 00:00:00 of Care Nicole ARITA 350.1.13.10 [place] [id number] [facility] 403 Branch 2022-12-02 2022-12-05 Inpatient X YANDY [facility] [id number] Univers 16:58:00 16:57:00 ZAIN ity of [facility] 2022-12-02 2022-12-05 Hospital Kimber Morton [facility] 1.2.840.11 [id number] Univers 16:58:00 16:57:00 Encounter Zain Kebede 350.1.13.10 ity of [place] 4.2.7.2.686 [facility] [id number] [facility] 081 Branch 2022-11-19 2022-11-19 Orders Doctor DOMINGA 1.2.840.114 [id number] Univers 00:00:00 00:00:00 Only Unassigned, BLAKE 350.1.13.10 ity of [place] [facility] 4.2.7.2.686 Demetrio [id number] [facility] 009 Branch 2022-11-04 2022-11-04 Outpatient R JAYNE [facility] [id number] Univers 15:30:00 15:30:00 MRAIA DEL CARMEN morse o f [facility] 2022-10-01 2022-10-01 (TEL) [facility] [id number] Co mmon 00:00:00 00:00:00 Spirit - [facility] 2022-09-26 2022-09-26 [facility] [id number] Co mmon 00:00:00 00:00:00 VISIT EST Spir it PT LEVEL 3 - [facility] 2022-09-23 2022-09-23 Telephone [facility] [id number] Univers 00:00:00 00:00:00 Bilok HEALTH 350.1.13.10 it y of [place] 4.2.7.2.686 [facility] [id number] [facility] 204 Branch OFFICE BUILDING 2022-09-20 2022-09-20 Outpatient [facility] [id number] Univers 15:00:00 16:11:18 BILAL ity of [facility] 2022-09-20 2022-09-20 Office [facility] 1.2.840.114 [id number] Univers 15:00:00 16:11:18 Visit Bilal HEALTH 350.1.13.10 [place] [id number] [facility] [address] OFFICE BUILDING 2022-09-11 2022-09-11 Orders Doctor DOMINGA 1.2.840.114 [id number] Univers 00:00:00 00:00:00 Only Unassigned, BLAKE 350.1.13.10 ity of [place] [facility] 4.2.7.2.686 Demetrio as [phone] [address] 2022-09-10 2022-09-10 Telephone Kelley, [facility] 1.2.840.114 [id number] Univers 00:00:00 00:00:00 Maria Del Carmen NUNES 350.1.13.10 ity of [facility] [place].2.7.2.[place] PROF[place] [id number] De joe [address] 2022-09-05 2022-09-05 [facility] [id number] Co mmon 00:00:00 00:00:00 VISIT EST Spir it PT LEVEL 3 - [facility] 2022-09-02 2022-09-02 Outpatient R [facility] [id number] Univers 10:00:00 10:00:00 DAVDI morse of [facility] 2022-08-28 2022-08-28 [facility] 1.2.840.114 [id number] Univers 00:00:00 00:00:00 [facility] 350.1.13.10 i ty of [facility] 4.2.7.2.686 Demetrio as ROHAN?BLEA [id number] De joe YOUNGBLOOD [address] OFFICE [facility] 2022-08-26 2022-08-26 Outpatient R [facility] [id number] Univers 13:45:00 16:00:02 MARIA DEL CARMEN morse o f [facility] 2022-08-26 2022-08-26 Office [facility] 1.2.840.114 [id number] Univers 13:45:00 16:00:02 Visit Maria Del Carmen NUNES 350.1.13.10 [place] [id number] De dical RIRI [facility] 2022-08-26 2022-08-26 OFFICE STLMLC STLMLC [id number] Co mmon 00:00:00 00:00:00 VISIT NEW Spir it PT LEVEL 3 - [facility] 2022-08-26 2022-08-26 (TEL) STLMLC STLMLC [id number] Co mmon 00:00:00 00:00:00 Spirit - [facility] 2022-08-22 2022-08-22 Emergency [facility] [id number] Univers 06:30:00 09:16:00 MARITZANADEEN jesus albertoy [facility] 2022-08-22 2022-08-22 Emergency [facility] [id number] Univers 06:30:00 09:16:00 Segunlisette NUNES 350.1.13.10 ity of [place]2.[place] [id number] [address] 2022-08-22 2022-08-22 Telephone [facility] 1.2.840.114 [id number] Univers 00:00:00 00:00:00 Jb L HEALTH 350.1.13.10 it y of [place] 4.2.7.2.686 Demetrio as ROHAN?BLEA [id number] De dicmo [facility] [address] OFFICE [facility] 2022-08-22 2022-08-22 Telephone [facility] 1.2.840.114 [id number] Univers 00:00:00 00:00:00 Jb L HEALTH 350.1.13.10 it y of [place] 4.2.7.2.686 Demetrio as ROHAN?BLEA [id number] De dicmo YOUNGBLOOD [address] OFFICE [facility] 2022-08-21 2022-08-21 Outpatient R NUZHAT [facility] [id number] Univers 13:00:00 13:21:42 CHAYA morse [facility] 2022-08-21 2022-08-21 Office J[address] Wells [facility] 1.2.840. 114 [id number] Univers 13:00:00 13:21:42 Visit Chaya Noland 350.1.13.10 ity of [place] 4.2.7.2.686 Demetrio as ROHAN?BLEA [id number] De joe [address] MEDICAL OFFICE BUILDING 2022-08-21 2022-08-[address] [facility] 1.2.840.114 [id number] Univers 00:00:00 00:00:00 Jb Cordova HEALTH 350.1.13.10 it y of [place] 4.2.7.2.686 Demetrio as ROHAN?BLEA [id number] De joe YOUNGBLOOD [address] [place] [address] MEDICAL OFFICE [facility] 2022-08-16 2022-08-16 Outpatient Shaina NOLAND [facility] [id number] Univers 10:30:00 10:30:00 CHAYA morse [facility] 2020-07-18 2020-07-18 Outpatient Isha, [facility] [id number] [facility] 09:30:00 09:30:00 Vernon Bibi [facility] 2020-05-26 2020-05-26 Transition Robert Whitfield 1.2.840.114 [id number] 00:00:00 00:00:00 of Care Nicole Arita 350.1.13.10 [place] 4.2.7.2.686 [id number] [facility] 2020-05-26 2020-05-26 Transition Robert Whitfield 1.2.840.114 [id number] Univers 00:00:00 00:00:00 of Care Nicole Arita 350.1.13.10 it y of [place] [id number] [address] 2019-12-09 2019-12-09 Outpatient R PRISCILLA [facility] [id number] Univers 10:30:00 10:30:00 JB morse [facility] 2019-12-01 2019-12-01 Outpatient Shaina WELLS [facility] [id number] Univers 13:00:00 13:00:00 JB morse [facility] 2019-08-24 2019-08-24 Outpatient Shaina RICARDO [facility] [id number] Univers 10:36:58 23:59:00 HILDA morse [facility] 2019-05-19 2019-05-19 Senior Adults Director 1, Adc Lab [facility] 1.2.840.114 [id number] 15:02:08 15:17:08 Visit Manju 350.1.13.10 [place] 4.2.7.2.686 [place] [id number] 353 2019-05-19 2019-05-19 Senior Adults Director 1, Adc Lab [facility] 1.2.840.114 [id number] [facility] 15:02:08 15:17:08 Visit Khadijah Saul 350.1.13 .10 ity of [place] 4.2.7.2.686 [facility] [id number] [address] 2019-05-19 2019-05-19 Orders Doctor DOMINGA 1.2.840.114 [id number] 00:00:00 00:00:00 Only Unassigned, BLAKE 350.1.13.10 [place] [facility] 4.2.7.2.686 [id number] [id number] 2019-05-19 2019-05-19 Orders Doctor DOMINGA Robles.2.840.114 [id number] Univers 00:00:00 00:00:00 Only Unassigned, BLAKE 350.1.13.10 ity of [place] [facility] 4.2.7.2.686 Demetrio as [id number] [address] 2019-03-10 2019-03-10 Orders Doctor DOMINGA 1.2.840.114 [id number] Univers 00:00:00 00:00:00 Only Unassigned, BLAKE 350.1.13.10 ity of [place] [facility] 4.2.7.2.686 Demetrio as [id number] [address] 2019-03-10 2019-03-10 Orders Doctor DOMINGA 1.2.840.114 [id number] 00:00:00 00:00:00 Only Unassigned, BLA[place] 350.1.13.10 [place] [facility] 4.2.7.2.686 [id number] [id number] 2019-02-21 2019-03-09 Inpatient [facility] [id number] Memoria 00:14:18 00:15:00 shaina Lead 00 l [facility] 2019-02-21 2019-03-09 [facility] [id number] Memoria 00:14:18 00:15:00 r Vinnie 00 l [facility] 2019-02-20 2019-03-08 Outpatient ZULEIKA SanchezPL [facility] [id number] 19:14:18 19:15:00 José 00 [place] 2019-02-12 2019-02-20 Inpatient 3 YOLANDA HUYNH [facility] [id number] [facility] 22:30:00 19:00:00 NARAYAN 0531 Health Rehabil itation Bridgette matthews 2013-10-06 2013-10-18 Outpatient 2.16.840. 2.16.840.1. 4 [id number] Memoria 00:05:00 10:54:00 [id number]. [id number] 21 l 3.615.0.1 5.0.101 [place] [facility] 01 Hosp[facility] l 2013-10-05 2013-10-18 Inpatient nullFlavo [facility] [id number] Memoria 01:11:00 10:54:00 [facility] 21 l [facility] 2013-10-05 2013-10-18 Inpatient nullFlavo [facility] [id number] Memoria 01:11:00 10:54:00 Medical 21 l [facility] Results Test Description Test Time Test Comments Results Result Comments Source POCT MOLECULAR FLU 2023-07-18 20:49:20 Test Item Value Reference Range Interpretation Comme nts POCT Molecular FluA (test code = 02928-8) Negative Negative POCT Molecular FluB (test code = 63145-0) Negative Negative Lab Interpretation (test code = 79776-9) Normal [facility] SPECIFIC [id number] 20:44:00 Test Item Value Reference Range Interpretation Comments POCT U SP GRAV (test code = 1.010 mg/dl 1.005-1.025 3255) POCT PH U (test code = 3254) 5 mg/dl 5-8 POCT U LEUK EST (test code = 2+ Negative - Negative 3263) POCT U NIT (test code = 3262) neg Negative - Negative POCT U PROT (test code = 2+ Negative - Negative 3259) POCT U GLU (test code = 3256) NORM Negative - Negative POCT U KETONE (test code = NEG Negative - Negative 3258) POCT U UROBILI (test code = NEG 0.2-1 3260) POCT U BILI (test code = NEG Negative - Negative 3261) POCT U BLD (test code = 3257) ABOUT 250 Negative - Negative POCT U COLOR (test code = BRENDA 3266) POCT U APPEAR (test code = CLEAR 3267) [facility] GLUCOSE (AUTOMATED)2022-12-05 17:02:48 Test Item Value Reference Range Interpretation Comments POCT GLU (test code = 5507646824) 107 mg/dL 70-110 Lab Interpretation (test code = Normal 30638-0) [facility] GLUCOSE (AUTOMATED)2022-12-05 12:59:12 Test Item Value Reference Range Interpretation Comments POCT GLU (test code = 2677571169) 90 mg/dL 70-110 Lab Interpretation (test code = Normal 74558-7) [facility] GLUCOSE (AUTOMATED)2022-12-05 02:03:13 Test Item Value Reference Range Interpretation Comments POCT GLU (test code = 1881516647) 155 mg/dL 70-110 H Lab Interpretation (test code = Abnormal 92636-2) [facility] GLUCOSE (AUTOMATED)2022-12-04 22:47:32 Test Item Value Reference Range Interpretation Comments POCT GLU (test code = 6647596977) 88 mg/dL 70-110 Lab Interpretation (test code = Normal 05470-5) [facility] GLUCOSE (AUTOMATED)2022-12-04 16:54:48 Test Item Value Reference Range Interpretation Comments POCT GLU (test code = 2151234027) 116 mg/dL 70-110 H Lab Interpretation (test code = Abnormal 61192-7) [facility] GLUCOSE (AUTOMATED)2022-12-04 13:16:18 Test Item Value Reference Range Interpretation Comments POCT GLU (test code = 8332243527) 126 mg/dL 70-110 H Lab Interpretation (test code = Abnormal 33049-5) [facility] GLUCOSE (AUTOMATED)2022-12-04 01:38:29 Test Item Value Reference Range Interpretation Comments POCT GLU (test code = 2268969053) 97 mg/dL 70-110 Lab Interpretation (test code = Normal 42847-4) [facility] GLUCOSE (AUTOMATED)2022-12-03 21:59:19 Test Item Value Reference Range Interpretation Comments POCT GLU (test code = 3340709375) 82 mg/dL 70-110 Lab Interpretation (test code = Normal 46835-9) [facility] GLUCOSE (AUTOMATED)2022-12-03 17:30:08 Test Item Value Reference Range Interpretation Comments POCT GLU (test code = [id number]) 69 mg/dL 70-110 L Lab Interpretation (test code = Abnormal 84893-8) [facility] GLUCOSE (AUTOMATED)2022-12-03 13:48:40 Test Item Value Reference Range Interpretation Comments POCT GLU (test code = [id number]) 124 mg/dL 70-110 H Lab Interpretation (test code = Abnormal 36279-8) [facility] CenterBAC METABOLIC [id number] 14:40:00 Test Item Value Reference Range Interpretation Comments SODIUM (test code = 134 MMOL/L 137-145 L NA) POTASSIUM (test code = 4.0 MMOL/L 3.5-5.1 N K) CHLORIDE (test code = 101 MMOL/L 98-107 N CL) CARBON DIOXIDE (test 30 MMOL/L 22-30 N code = CO2) ANION GAP (test code = 7 MMOL/L 14-24 L GAP) GLUCOSE (test code = 104 MG/DL 74-106 GLU) BLOOD UREA NITROGEN 22 MG/DL 7-17 H (test code = BUN) GLOMERULAR FILTRATION 53 Report ing units: RATE (test code = GFR) ml/mi n/1.73 m2 (Modified MDRD Formula)Referen ce Range: > or = 6 0 ml/min/1.73 m2 CREATININE (test code 1.00 MG/DL 0.52-1.04 N = CREAT) CALCIUM (test code = 8.6 MG/DL 8.4-10.2 N CA) [id number] 14:40:00 Test Item Value Reference Range Interpretation Comments MAGNESIUM (test code = MAG) 2.1 MG/DL 1.6-2.3 N BASIC METABOLIC [id number] 14:36:00 Test Item Value Reference Range Interpretation [...] CALCIUM (test code = MG/DL 8.7-9.7 CA) [id number] 14:36:00 Test Item Value Reference Range Interpretation Comments MAGNESIUM (test code = MAG) MG/DL 1.6-2.3 BASIC METABOLIC [id number] 14:34:00 Test Item Value Reference Range Interpretation [...] CALCIUM (test code = CA) MG/DL 8.7-9.7 [id number] 14:34:00 Test Item Value Reference Range Interpretation Comments MAGNESIUM (test code = MAG) MG/DL 1.6-2.3 CBC W/AUTO [id number] 14:15:00 Test Item Value Reference Range Interpretation [...] 0.00 K/mm3 0.0-0.1 N NRBC#) ARTERIAL BLOOD [id number] 19:02:00 Test Item Value Reference Range Interpretation [...] = SATA) report to and readback by [facility] NURSE by ANDREW at 10/04/2020 7:01: 33 PM ABG DELIVERY (test NRBMASK code = RUTHIE) ABG TEMPERATURE (test 37.0 C >37 code = TEMPA) ABG SITE (test code = LINE SITEA) ALLENS TEST (test code Y CHECK = ALLENS) FIO2 (test code = 80 % COHBGFFIO2) PaO2/[id number] 19:02:00 Test Item Value Reference Range Interpretation Comments PaO2/FiO2 (test code = [id number]) mm/Hg ARTERIAL BLOOD [id number] 19:02:00 Test Item Value Reference Range Interpretation [...] = SATA) report to and readback by [facility] NURSE by ANDREW at 10/04/2020 7:01: 33 PM ABG DELIVERY (test NRBMASK code = RUTHIE) ABG TEMPERATURE (test 37.0 C >37 code = TEMPA) ABG SITE (test code = LINE SITEA) ALLENS TEST (test code Y CHECK = ALLENS) FIO2 (test code = 80 % COHBGFFIO2) PaO2/[id number] 19:02:00 Test Item Value Reference Range Interpretation Comments PaO2/FiO2 (test code = QOP3UCQ7) 140.62 mm/Hg BASIC METABOLIC [id number] 16:01:00 Test Item Value Reference Range Interpretation [...] 8.9 MG/DL 8.4-10.2 N CA) BASIC METABOLIC [id number] 15:59:00 Test Item Value Reference Range Interpretation [...] code = MG/DL 8.7-9.7 CA) BASIC METABOLIC [id number] 15:57:00 Test Item Value Reference Range Interpretation [...] code = CA) MG/DL 8.7-9.7 BASIC METABOLIC [id number] 15:56:00 Test Item Value Reference Range Interpretation [...] = CA) MG/DL 8.7-9.7 - XR CHEST [id number] 15:51:00 [facility] 1935 Sex: F Patient Name: NED SCHWARTZ Unit No: [id number] EXAMS: CPT CODE: [id number] XR CHEST 1V [id number] TIME OF STUDY: 10/04/2020 3:17 PM REASON [...] CC: Sean Duran MD; Vernon Vieira; Santy Brown MD Technologist: Brenda Borges (RT) Transcrpt Date/Tm/Trnsp: 10/04/2020 (1551) [email or web address] Orig Print D/T : S: 10/04/2020 (1554) [facility] NAME: NED SCHWARTZ [address] PHYS: [place] [address] : 1935 AGE: 85 SEX: F [facility] #: [phone] EXAM DATE: 10/04/2020 STATUS: REG [facility] [place] [facility] [place] #: [phone] RADIOLOGY NO: PAGE 1 Signed ReportBASIC METABOLIC [id number] 07:23:00 Test Item Value Reference Range Interpretation [...] code = 9.8 MG/DL 8.4-10.2 N CA) [id number] 07:23:00 Test Item Value Reference Range Interpretation Comments MAGNESIUM (test code = MAG) 2.1 MG/DL 1.6-2.3 N PROTHROMBIN [id number] 07:20:00 Test Item Value Reference Range Interpretation [...] va lve, or acute myocar dial infarction. 2. 0 - 3.0 3. Narcotics Investigator al prosthesis hear t valves, recurre nt systemic emboli sm. 3.0 - 4.5 PTT [id number] 07:20:00 Test Item Value Reference Range Interpretation Comments PTT ACTIVATED (test code = APTT) 35.3 SECONDS 25.1-36.5 N BASIC METABOLIC [id number] 07:13:00 Test Item Value Reference Range Interpretation [...] CALCIUM (test code = MG/DL 8.7-9.7 CA) [id number] 07:13:00 Test Item Value Reference Range Interpretation Comments MAGNESIUM (test code = MAG) MG/DL 1.6-2.3 CBC W/AUTO [id number] 07:11:00 Test Item Value Reference Range Interpretation [...] 0.00 K/mm3 0.0-0.1 N NRBC#) BASIC METABOLIC [id number] 07:11:00 Test Item Value Reference Range Interpretation [...] CALCIUM (test code = CA) MG/DL 8.7-9.7 [id number] 07:11:00 Test Item Value Reference Range Interpretation Comments MAGNESIUM (test code = MAG) MG/DL 1.6-2.3 BASIC METABOLIC [id number] 07:10:00 Test Item Value Reference Range Interpretation [...] CALCIUM (test code = CA) MG/DL 8.7-9.7 [id number] 07:10:00 Test Item Value Reference Range Interpretation Comments MAGNESIUM (test code = MAG) MG/DL 1.6-2.3 COVID 19 Asymptomatic IH [id number] 16:58:00 Test Item Value Reference Range Interpretation [...] virus (antigen) in the sample." GLUCOSE BEDSIDE [id number] 11:53:00 Test Item Value Reference Range Interpretation Comments GLUCOSE BEDSIDE TESTING (test code = 94 MG/DL 60-99 N GLUBED) GLUCOSE BEDSIDE [id number] 08:02:00 Test Item Value Reference Range Interpretation Comments GLUCOSE BEDSIDE TESTING (test code 117 MG/DL 60-99 H = GLUBED) BASIC METABOLIC [id number] 07:19:00 Test Item Value Reference Range Interpretation [...] 9.2 MG/DL 8.4-10.2 N CA) BASIC METABOLIC [id number] 06:41:00 Test Item Value Reference Range Interpretation [...] code = CA) MG/DL 8.7-9.7 CBC W/AUTO [id number] 06:27:00 Test Item Value Reference Range Interpretation [...] 0.00 K/mm3 0.0-0.1 N NRBC#) GLUCOSE BEDSIDE [id number] 20:07:00 Test Item Value Reference Range Interpretation Comments GLUCOSE BEDSIDE TESTING (test code = 95 MG/DL 60-99 N GLUBED) GLUCOSE BEDSIDE [id number] 16:22:00 Test Item Value Reference Range Interpretation Comments GLUCOSE BEDSIDE TESTING (test code 103 MG/DL 60-99 H = GLUBED) - XR CHEST [id number] 15:05:00 [facility] 1935 Sex: F Patient Name: NED SCHWARTZ Unit No: [id number] EXAMS: CPT CODE: [id number] XR CHEST 1V 07636 LOCATION: T18 EXAM: CHEST 1 VIEW INDICATION: , Attempted venous access. COMPARISON: None. TECHNIQUE: AP chest radiograph. FINDINGS: Diffuse bilateral interstitial lung markings likely chronic interstitial lung disease. Calcification aorta present. No pleural effusion is seen. Heart is normal in size. Bones and peripheral soft tissues are unremarkable. IMPRESSION: Findings concerning for chronic interstitial lung disease. at 1505 Reported and signed by: Neftali Martin MD CC: Sean Duran MD; Vernon Vieira Technologist: Khai Muñoz RT(R) Transcrpt Date/Tm/Trnsp: 07/18/2020 (1505) [email or web address] Orig Print D/T: S: 07/18/2020 (7448) [facility] NAME: NED SCHWARTZ [address] PHYS: [place] [address] : 1935 AGE: 85 SEX: F LOC: Z.DC4T A PHONE #: [phone] EXAM DATE: 07/18/2020 STATUS: ADM IN FAX #: [phone] RADIOLOGY NO: PAGE 1 Signed ReportBASIC METABOLIC [id number] 07:39:00 Test Item Value Reference Range Interpretation [...] 9.8 MG/DL 8.4-10.2 N CA) Comments to Occupational Health Physiotherapist: NURSE WILL BRING SPECIMEN TO LABIs this a LINE draw? N [id number] 07:39:00 Test Item Value Reference Range Interpretation Comments MAGNESIUM (test code = MAG) 2.1 MG/DL 1.6-2.3 N Comments to Occupational Health Physiotherapist: NURSE WILL BRING SPECIMEN TO LABIs this a LINE draw? N PROTHROMBIN [id number] 07:27:00 Test Item Value Reference Range Interpretation [...] myocar dial infarction. 2.0 - 3.0 3. Narcotics Investigator al prosthesis hear t valves, recurre nt systemic emboli sm. 3.0 - 4.5 Comments to Occupational Health Physiotherapist: NURSE WILL BRING SPECIMEN TO LABComments to Occupational Health Physiotherapist: NURSE GANESH BRING SPECIMEN TOLABPTT [id number] 07:27:00 Test Item Value Reference Range Interpretation Comments PTT ACTIVATED (test code = APTT) 33.4 SECONDS 25.1-36.5 N Comments to Occupational Health Physiotherapist: NURSE WILL BRING SPECIMEN TO LABComments to Occupational Health Physiotherapist: NURSE GANESH BRING SPECIMEN TOLABCBC W/AUTO [id number] 07:11:00 Test Item Value Reference Range Interpretation [...] 0.00 K/mm3 0.0-0.1 N NRBC#) Comments to Occupational Health Physiotherapist: NURSE WILL BRING SPECIMEN TO LABIs this a LINE draw? N Coronavirus 2019 nCoV [id number] 15:55:00 Test Item Value Reference Range Interpretation Comments Coronavirus 2019 Negative Negative Results are for the nCoV Bedside (test identific ation of code = SARS-CoV-2 RNA. [id number]) UavETJZ-GqR-0 RNA is generally detec table in respiratorysamp les during the acute phase of infection. Posi tiveresults are indicative of the presence of SANDRA S-CoV-2 RNA;clinical co rrelation with patient hi story and otherdiagnostic information is necessary to determine patientinfectio n status. Positive result s do not rule out bacterialinfect ion or co-infection wi th other viruses. [id number] 20:42:00 Test Item Value Reference Range Interpretation Comments PT (test code = PT) 18.7 s 12.0-14.7 [id number] 20:42:00 Test Item Value Reference Range Interpretation Comments INR (test code = INR) 1.60 1 0.85-1.17 [facility] Nor[id number] 20:42:00 Test Item Value Reference Range Interpretation Comments PT (test code = PT) 18.7 s 12.0-14.7 [facility] NortheastUydbtqvUQNNJGDNTN8424-42-18 20:42:00 Test Item Value Reference Range Interpretation Comments INR (test code = INR) 1.60 1 0.85-1.17 [facility] Northea[id number] 20:42:00 Test Item Value Reference Range Interpretation Comments PT (test code = PT) 18.7 s 12.0-14.7 [facility] NortheastUibumaiPBUOOEGZPK6184-22-19 20:42:00 Test Item Value Reference Range Interpretation Comments PT (test code = PT) 18.7 s 12.0-14.7 [facility] NortheastNjkfdgmHILCFBHWZN2896-67-95 20:42:00 Test Item Value Reference Range Interpretation Comments INR (test code = INR) 1.60 1 0.85-1.17 [facility] NortheastDtubqxrAHZCSMVDZE2223-44-73 20:42:00 Test Item Value Reference Range Interpretation Comments INR (test code = INR) 1.60 1 0.85-1.17 [facility] NortheastCokarmgMOWYSMCVIR0948-07-50 20:42:00 Test Item Value Reference Range Interpretation Comments PT (test code = PT) 18.7 s 12.0-14.7 [facility] NortheastUkxadzgZROVZLNDUB8227-96-13 20:42:00 Test Item Value Reference Range Interpretation Comments INR (test code = INR) 1.60 1 0.85-1.17 [facility] NortheastSpygtrzILHTZXFANA9305-51-90 20:42:00 Test Item Value Reference Range Interpretation Comments PT (test code = PT) 18.7 s 12.0-14.7 [facility] NortheastIbruzstGNFERQVSJF3771-38-22 20:42:00 Test Item Value Reference Range Interpretation Comments INR (test code = INR) 1.60 1 0.85-1.17 [facility] NortheastPquzubbUSMKHRLFUJ7156-88-80 20:42:00 Test Item Value Reference Range Interpretation Comments PT (test code = PT) 18.7 s 12.0-14.7 [facility] NortheastQvbcrfcSORPIRNGGX1582-52-97 20:42:00 Test Item Value Reference Range Interpretation Comments INR (test code = INR) 1.60 1 0.85-1.17 [facility] NortheastJzgawynCQKKSINKKE5159-09-15 20:42:00 Test Item Value Reference Range Interpretation Comments PT (test code = PT) 18.7 s 12.0-14.7 [facility] NortheastZwaqdgkVYVSNJXKYQ1323-89-52 20:42:00 Test Item Value Reference Range Interpretation Comments INR (test code = INR) 1.60 1 0.85-1.17 [facility] NortheastAscohrtQTZICYTOVL4825-52-13 20:42:00 Test Item Value Reference Range Interpretation Comments PT (test code = PT) 18.7 s 12.0-14.7 [facility] NortheastIuoylacCHMLHJVRYD8534-78-82 20:42:00 Test Item Value Reference Range Interpretation Comments INR (test code = INR) 1.60 1 0.85-1.17 [facility] NortheastQemdqrhMTDRMHAILJ7148-21-74 20:42:00 Test Item Value Reference Range Interpretation Comments PT (test code = PT) 18.7 s 12.0-14.7 [facility] NortheastFarhtotXFZOZZCEAS0379-33-38 20:42:00 Test Item Value Reference Range Interpretation Comments INR (test code = INR) 1.60 1 0.85-1.17 [facility] NortheastUaqsnpzLQCUXRKEHT1891-10-97 20:42:00 Test Item Value Reference Range Interpretation Comments PT (test code = PT) 18.7 s 12.0-14.7 [facility] NortheastJefapccWZKKOEGQLU9914-95-74 20:42:00 Test Item Value Reference Range Interpretation Comments INR (test code = INR) 1.60 1 0.85-1.17 [facility] NortheastAzwtxnzLKTOCTQFJZ6253-11-48 20:42:00 Test Item Value Reference Range Interpretation Comments PT (test code = PT) 18.7 s 12.0-14.7 [facility] NortheastBzlssryUNYUJZFEOF0943-20-95 20:42:00 Test Item Value Reference Range Interpretation Comments INR (test code = INR) 1.60 1 0.85-1.17 [facility] NortheastOafdxrqCSMGBZZZLX1233-34-20 20:42:00 Test Item Value Reference Range Interpretation Comments PT (test code = PT) 18.7 s 12.0-14.7 [facility] NortheastVnuawhvSTZDARDRII0055-53-32 20:42:00 Test Item Value Reference Range Interpretation Comments INR (test code = INR) 1.60 1 0.85-1.17 [facility] NortheastDuhrikpKOIVMNXGCQ3378-36-59 20:42:00 Test Item Value Reference Range Interpretation Comments PT (test code = PT) 18.7 s 12.0-14.7 [facility] NortheastLofqadkPHFZFWRWRT4654-97-99 20:42:00 Test Item Value Reference Range Interpretation Comments INR (test code = INR) 1.60 1 0.85-1.17 [facility] NortheastCorpoayYYPTIZKZPI7369-96-96 20:42:00 Test Item Value Reference Range Interpretation Comments PT (test code = PT) 18.7 s 12.0-14.7 [facility] NortheastHghgabvIQINMLGFQZ5439-57-65 20:42:00 Test Item Value Reference Range Interpretation Comments INR (test code = INR) 1.60 1 0.85-1.17 [facility] NortheastHssvtgoEGZJXVKKQE3976-12-88 20:42:00 Test Item Value Reference Range Interpretation Comments PT (test code = PT) 18.7 s 12.0-14.7 [facility] NortheastFffddabFOZGZJSSUO3103-81-73 20:42:00 Test Item Value Reference Range Interpretation Comments INR (test code = INR) 1.60 1 0.85-1.17 [facility] NortheastYzedoxnKXLXVRZJWQ8153-13-58 20:42:00 Test Item Value Reference Range Interpretation Comments PT (test code = PT) 18.7 s 12.0-14.7 [facility] NortheastHzleeenFNVMFOMFUV4506-08-92 20:42:00 Test Item Value Reference Range Interpretation Comments INR (test code = INR) 1.60 1 0.85-1.17 [facility] NortheastQdnolitXTHEUORSUG5256-13-19 20:42:00 Test Item Value Reference Range Interpretation Comments PT (test code = PT) 18.7 s 12.0-14.7 [facility] NortheastWmbqxauIBVNHMYRON6053-49-91 20:42:00 Test Item Value Reference Range Interpretation Comments INR (test code = INR) 1.60 1 0.85-1.17 [facility] NortheastGdvqgkwZBQTGRLVFA0763-40-07 20:42:00 Test Item Value Reference Range Interpretation Comments PT (test code = PT) 18.7 s 12.0-14.7 [facility] NortheastMahdewuBVCCWQVZYU5831-90-60 20:42:00 Test Item Value Reference Range Interpretation Comments INR (test code = INR) 1.60 1 0.85-1.17 [facility] NortheastBgcjdotAQOPPVBDRM8815-21-76 20:42:00 Test Item Value Reference Range Interpretation Comments PT (test code = PT) 18.7 s 12.0-14.7 [facility] NortheastLnrqvmlNPMTFNSKIR9693-72-91 20:42:00 Test Item Value Reference Range Interpretation Comments INR (test code = INR) 1.60 1 0.85-1.17 [facility] NortheastKnqcsgfYGNKJUERJL7469-73-32 20:42:00 Test Item Value Reference Range Interpretation Comments PT (test code = PT) 18.7 s 12.0-14.7 [facility] NortheastZuykxqlVWALNUNYUG0352-59-74 20:42:00 Test Item Value Reference Range Interpretation Comments INR (test code = INR) 1.60 1 0.85-1.17 [facility] NortheastGjlvvlwVTGREWAPQR2388-02-66 20:42:00 Test Item Value Reference Range Interpretation Comments PT (test code = PT) 18.7 s 12.0-14.7 [facility] NortheastTpzrvldHBCCMRIMJE7246-05-44 20:42:00 Test Item Value Reference Range Interpretation Comments INR (test code = INR) 1.60 1 0.85-1.17 [facility] NortheastFqwjmjrLNMUICVFCD2164-39-92 20:42:00 Test Item Value Reference Range Interpretation Comments PT (test code = PT) 18.7 s 12.0-14.7 [facility] NortheastZmnvvnvPJYGQVENKB3925-86-62 20:42:00 Test Item Value Reference Range Interpretation Comments INR (test code = INR) 1.60 1 0.85-1.17 [facility] NortheastAwghqmmHPBZLHKFQJ0561-24-75 20:42:00 Test Item Value Reference Range Interpretation Comments PT (test code = PT) 18.7 s 12.0-14.7 [facility] NortheastExrihjxBAGHSPSVSD7453-77-86 20:42:00 Test Item Value Reference Range Interpretation Comments INR (test code = INR) 1.60 1 0.85-1.17 [facility] NortheastWbwlladMHFMUHDKQC4385-42-44 20:42:00 Test Item Value Reference Range Interpretation Comments PT (test code = PT) 18.7 s 12.0-14.7 [facility] NortheastArzjmzmDKNDNAKHLS6921-73-09 20:42:00 Test Item Value Reference Range Interpretation Comments INR (test code = INR) 1.60 1 0.85-1.17 [facility] NortheastDionuytZQFIJMOCYH6257-02-37 20:42:00 Test Item Value Reference Range Interpretation Comments PT (test code = PT) 18.7 s 12.0-14.7 [facility] NortheastKzrixasKLKWEPEHSA6258-62-77 20:42:00 Test Item Value Reference Range Interpretation Comments INR (test code = INR) 1.60 1 0.85-1.17 [facility] NortheastZshnlloVUXTEFUBLN8506-26-22 20:42:00 Test Item Value Reference Range Interpretation Comments PT (test code = PT) 18.7 s 12.0-14.7 [facility] NortheastGaovdtiHJLKTDYRYL1465-87-45 20:42:00 Test Item Value Reference Range Interpretation Comments INR (test code = INR) 1.60 1 0.85-1.17 [facility] NortheastEygzucvAITYCKAJLF1963-63-23 09:13:00 Test Item Value Reference Range Interpretation Comments PT (test code = PT) 19.6 s 12.0-14.7 [facility] NortheastHeookzfIBIMNBFGRL1730-78-36 09:13:00 Test Item Value Reference Range Interpretation Comments INR (test code = INR) 1.70 1 0.85-1.17 [facility] NortheastHrolibwVIWNMGMXWN4253-11-75 09:13:00 Test Item Value Reference Range Interpretation Comments PT (test code = PT) 19.6 s 12.0-14.7 [facility] NortheastScptrpjCLPQFOQRWX2087-12-78 09:13:00 Test Item Value Reference Range Interpretation Comments INR (test code = INR) 1.70 1 0.85-1.17 [facility] NortheastKspodizHYALBPXRDP6052-61-72 09:13:00 Test Item Value Reference Range Interpretation Comments PT (test code = PT) 19.6 s 12.0-14.7 [facility] NortheastMmlrnhgLWPCUFFLOY4827-92-70 09:13:00 Test Item Value Reference Range Interpretation Comments INR (test code = INR) 1.70 1 0.85-1.17 [facility] NortheastJzgodbkDLUTOLNLLW0814-58-05 09:13:00 Test Item Value Reference Range Interpretation Comments PT (test code = PT) 19.6 s 12.0-14.7 [facility] NortheastLbsqbivAJCYRMELHD7022-47-05 09:13:00 Test Item Value Reference Range Interpretation Comments INR (test code = INR) 1.70 1 0.85-1.17 [facility] NortheastGkiiuorLFZLLPZUSY5051-09-24 09:13:00 Test Item Value Reference Range Interpretation Comments PT (test code = PT) 19.6 s 12.0-14.7 [facility] NortheastYfqxiriDRVQOADRVF6350-84-54 09:13:00 Test Item Value Reference Range Interpretation Comments INR (test code = INR) 1.70 1 0.85-1.17 [facility] NortheastPugdrlhJMNEKLURNI4654-30-67 09:13:00 Test Item Value Reference Range Interpretation Comments PT (test code = PT) 19.6 s 12.0-14.7 [facility] NortheastSfjemcfWDNIYYIVEN2186-17-82 09:13:00 Test Item Value Reference Range Interpretation Comments INR (test code = INR) 1.70 1 0.85-1.17 [facility] NortheastOyiswilBMVSOLYEJM4372-61-44 09:13:00 Test Item Value Reference Range Interpretation Comments PT (test code = PT) 19.6 s 12.0-14.7 [facility] NortheastGfrhugcBVBOLXINVI9193-99-24 09:13:00 Test Item Value Reference Range Interpretation Comments INR (test code = INR) 1.70 1 0.85-1.17 [facility] NortheastJdtjfojJUSMIZNNNL6032-06-57 09:13:00 Test Item Value Reference Range Interpretation Comments PT (test code = PT) 19.6 s 12.0-14.7 [facility] NortheastSthntooRGTCFZTWSC7026-54-74 09:13:00 Test Item Value Reference Range Interpretation Comments INR (test code = INR) 1.70 1 0.85-1.17 [facility] NortheastDccmvglSSFAHMYVRQ9209-89-28 09:13:00 Test Item Value Reference Range Interpretation Comments PT (test code = PT) 19.6 s 12.0-14.7 [facility] NortheastAjaoupiVIKDXULKPI1493-28-54 09:13:00 Test Item Value Reference Range Interpretation Comments INR (test code = INR) 1.70 1 0.85-1.17 [facility] NortheastTclnxbxARIUKQDBGM5871-79-15 09:13:00 Test Item Value Reference Range Interpretation Comments PT (test code = PT) 19.6 s 12.0-14.7 [facility] NortheastCebyfpxQWJQALZZUV6416-53-79 09:13:00 Test Item Value Reference Range Interpretation Comments INR (test code = INR) 1.70 1 0.85-1.17 [facility] NortheastVgplnktMRBDRMTYSO9667-34-58 09:13:00 Test Item Value Reference Range Interpretation Comments PT (test code = PT) 19.6 s 12.0-14.7 [facility] NortheastIbzppmfVPQCWAPCWG7143-70-65 09:13:00 Test Item Value Reference Range Interpretation Comments INR (test code = INR) 1.70 1 0.85-1.17 [facility] NortheastLngkrifTRDTQBVORP9616-77-49 09:13:00 Test Item Value Reference Range Interpretation Comments PT (test code = PT) 19.6 s 12.0-14.7 [facility] NortheastNijxxwrSQDEBVDTDT5574-95-31 09:13:00 Test Item Value Reference Range Interpretation Comments INR (test code = INR) 1.70 1 0.85-1.17 [facility] NortheastOnjrlgdTLOBJOPPHY4415-28-45 09:13:00 Test Item Value Reference Range Interpretation Comments PT (test code = PT) 19.6 s 12.0-14.7 [facility] NortheastAywyroiRADZADDLOT9802-55-02 09:13:00 Test Item Value Reference Range Interpretation Comments INR (test code = INR) 1.70 1 0.85-1.17 [facility] NortheastGglrhkmKIEKUDAGLK3159-12-14 09:13:00 Test Item Value Reference Range Interpretation Comments PT (test code = PT) 19.6 s 12.0-14.7 [facility] NortheastPmzidreQNRDKHLTPV9280-82-35 09:13:00 Test Item Value Reference Range Interpretation Comments INR (test code = INR) 1.70 1 0.85-1.17 [facility] NortheastUjiwgnoVEPJOMDOSH4144-51-10 09:13:00 Test Item Value Reference Range Interpretation Comments PT (test code = PT) 19.6 s 12.0-14.7 [facility] NortheastSdaiatlWLMKXAXXPH6578-27-59 09:13:00 Test Item Value Reference Range Interpretation Comments INR (test code = INR) 1.70 1 0.85-1.17 [facility] NortheastAxxbwvyKKQXWAFWEA8804-38-18 09:13:00 Test Item Value Reference Range Interpretation Comments PT (test code = PT) 19.6 s 12.0-14.7 [facility] NortheastSbggjukLXHIZFYFRZ4774-09-25 09:13:00 Test Item Value Reference Range Interpretation Comments INR (test code = INR) 1.70 1 0.85-1.17 [facility] NortheastZvevbldIJZQUBVTYS0354-66-46 09:13:00 Test Item Value Reference Range Interpretation Comments PT (test code = PT) 19.6 s 12.0-14.7 [facility] NortheastRbtgsfjHRUXHBXRAY9610-79-57 09:13:00 Test Item Value Reference Range Interpretation Comments INR (test code = INR) 1.70 1 0.85-1.17 [facility] NortheastSlkflegPYOFOTVTMH2448-43-73 09:13:00 Test Item Value Reference Range Interpretation Comments PT (test code = PT) 19.6 s 12.0-14.7 [facility] NortheastIsktjcwMSYRMXILSE1543-19-78 09:13:00 Test Item Value Reference Range Interpretation Comments INR (test code = INR) 1.70 1 0.85-1.17 [facility] NortheastEttqppzKQOULQMKTN7034-40-84 09:13:00 Test Item Value Reference Range Interpretation Comments PT (test code = PT) 19.6 s 12.0-14.7 [facility] NortheastTdozuoiYNWIEIRITL6410-69-92 09:13:00 Test Item Value Reference Range Interpretation Comments INR (test code = INR) 1.70 1 0.85-1.17 [facility]DQBZPIBOBH7356-04-49 09:13:00 Test Item Value Reference Range Interpretation Comments PT (test code = PT) 19.6 s 12.0-14.7 [facility]EydguloPWTCRAEGZD2195-37-79 09:13:00 Test Item Value Reference Range Interpretation Comments INR (test code = INR) 1.70 1 0.85-1.17 [facility]LkzzakfVZXFYXKSES2523-18-38 09:13:00 Test Item Value Reference Range Interpretation Comments PT (test code = PT) 19.6 s 12.0-14.7 [facility]SnhvbczBXMXTXHHZX5520-10-22 09:13:00 Test Item Value Reference Range Interpretation Comments INR (test code = INR) 1.70 1 0.85-1.17 [facility]YtntobySXVUGJNPAK6651-20-29 09:13:00 Test Item Value Reference Range Interpretation Comments PT (test code = PT) 19.6 s 12.0-14.7 [facility]QzqekiwMPIMJZZHKM1156-82-34 09:13:00 Test Item Value Reference Range Interpretation Comments INR (test code = INR) 1.70 1 0.85-1.17 [facility]BpdwnpaOYZPWHWFLY6416-49-40 09:13:00 Test Item Value Reference Range Interpretation Comments PT (test code = PT) 19.6 s 12.0-14.7 [facility]FhtvdjvWDYHNBTMCK9122-65-93 09:13:00 Test Item Value Reference Range Interpretation Comments INR (test code = INR) 1.70 1 0.85-1.17 [facility]LvaoclxBUBDYCWZCQ6198-12-17 09:13:00 Test Item Value Reference Range Interpretation Comments PT (test code = PT) 19.6 s 12.0-14.7 [facility]YfevnqtOYJPXXDCJV0529-43-52 09:13:00 Test Item Value Reference Range Interpretation Comments INR (test code = INR) 1.70 1 0.85-1.17 [facility] NortheastLumcolxRDUGFAVYYO0430-23-73 09:13:00 Test Item Value Reference Range Interpretation Comments PT (test code = PT) 19.6 s 12.0-14.7 [facility]JizidjiTNVDRPOXHT0015-91-88 09:13:00 Test Item Value Reference Range Interpretation Comments INR (test code = INR) 1.70 1 0.85-1.17 [facility]OufkaprYCAJYOYXVR5992-29-15 09:13:00 Test Item Value Reference Range Interpretation Comments PT (test code = PT) 19.6 s 12.0-14.7 [facility]NqsoxftSLFLFVNYJN2532-00-63 09:13:00 Test Item Value Reference Range Interpretation Comments INR (test code = INR) 1.70 1 0.85-1.17 [facility]EnmfuodJGEGTDXQOW9006-16-13 09:13:00 Test Item Value Reference Range Interpretation Comments PT (test code = PT) 19.6 s 12.0-14.7 [facility]AdmknxyMVITOWUMYO3015-61-17 09:13:00 Test Item Value Reference Range Interpretation Comments INR (test code = INR) 1.70 1 0.85-1.17 [facility]2019-06-22 10:24:00 Test Item Value Reference Range Interpretation Comments eGFR (test code = eGFR) 70 [facility]2019-06-22 10:24:00 Test Item Value Reference Range Interpretation Comments CO2 (test code = CO2) 31 - [facility]2019-06-22 10:24:00 Test Item Value Reference Range Interpretation Comments Calcium Lvl (test code = Calcium Lvl) 8.8 8.5-10.5 [facility]2019-06-22 10:24:00 Test Item Value Reference Range Interpretation Comments Chloride Lvl (test code = Chloride Lvl) 102 95-109 [facility]2019-06-22 10:24:00 Test Item Value Reference Range Interpretation Comments BUN (test code = BUN) 19 - [facility]2019-06-22 10:24:00 Test Item Value Reference Range Interpretation Comments Glucose Lvl (test code = Glucose Lvl) 101 70-99 [facility]2019-06-22 10:24:00 Test Item Value Reference Range Interpretation Comments Potassium Lvl (test code = Potassium 4.0 3.5-5.1 Lvl) [facility]2019-06-22 10:24:00 Test Item Value Reference Range Interpretation Comments Creatinine Lvl (test code = Creatinine 0.78 0.50-1.40 Lvl) [facility]2019-06-22 10:24:00 Test Item Value Reference Range Interpretation Comments Sodium Lvl (test code = Sodium Lvl) 139 135-145 [facility]2019-06-22 10:24:00 Test Item Value Reference Range Interpretation Comments AGAP (test code = AGAP) 10.0 10.0-20.0 [facility]OqzokcuYTWZUDPFTR5957-00-61 10:24:00 Test Item Value Reference Range Interpretation Comments PT (test code = PT) 22.5 s 12.0-14.7 [facility]OquudwpXHJNVTIRAD0760-24-63 10:24:00 Test Item Value Reference Range Interpretation Comments INR (test code = INR) 2.03 1 0.85-1.17 [facility]2019-06-22 10:24:00 Test Item Value Reference Range Interpretation Comments eGFR (test code = eGFR) 70 [facility]2019-06-22 10:24:00 Test Item Value Reference Range Interpretation Comments CO2 (test code = CO2) - [facility]2019-06-22 10:24:00 Test Item Value Reference Range Interpretation Comments Calcium Lvl (test code = Calcium Lvl) 8.8 8.5-10.5 [facility]2019-06-22 10:24:00 Test Item Value Reference Range Interpretation Comments Chloride Lvl (test code = Chloride Lvl) 102 95-109 [facility]2019-06-22 10:24:00 Test Item Value Reference Range Interpretation Comments BUN (test code = BUN) 19 7-22 [facility]2019-06-22 10:24:00 Test Item Value Reference Range Interpretation Comments Glucose Lvl (test code = Glucose Lvl) 101 70-99 [facility]2019-06-22 10:24:00 Test Item Value Reference Range Interpretation Comments Potassium Lvl (test code = Potassium 4.0 3.5-5.1 Lvl) [facility]2019-06-22 10:24:00 Test Item Value Reference Range Interpretation Comments Creatinine Lvl (test code = Creatinine 0.78 0.50-1.40 Lvl) [facility]2019-06-22 10:24:00 Test Item Value Reference Range Interpretation Comments Sodium Lvl (test code = Sodium Lvl) 139 135-145 [facility]2019-06-22 10:24:00 Test Item Value Reference Range Interpretation Comments AGAP (test code = AGAP) 10.0 10.0-20.0 [facility]HzjnluuYGMLZSJIGI1944-56-18 10:24:00 Test Item Value Reference Range Interpretation Comments PT (test code = PT) 22.5 s 12.0-14.7 [facility]EfpijgcSIUILTVLOC7444-12-33 10:24:00 Test Item Value Reference Range Interpretation Comments INR (test code = INR) 2.03 1 0.85-1.17 [facility]2019-06-22 10:24:00 Test Item Value Reference Range Interpretation Comments eGFR (test code = eGFR) 70 [facility]2019-06-22 10:24:00 Test Item Value Reference Range Interpretation Comments CO2 (test code = CO2) 31 24-32 [facility]2019-06-22 10:24:00 Test Item Value Reference Range Interpretation Comments Calcium Lvl (test code = Calcium Lvl) 8.8 8.5-10.5 [facility]2019-06-22 10:24:00 Test Item Value Reference Range Interpretation Comments Chloride Lvl (test code = Chloride Lvl) 102 95-109 [facility]2019-06-22 10:24:00 Test Item Value Reference Range Interpretation Comments BUN (test code = BUN) 19 -22 [facility]2019-06-22 10:24:00 Test Item Value Reference Range Interpretation Comments Glucose Lvl (test code = Glucose Lvl) 101 70-99 [facility]2019-06-22 10:24:00 Test Item Value Reference Range Interpretation Comments Potassium Lvl (test code = Potassium 4.0 3.5-5.1 Lvl) [facility]2019-06-22 10:24:00 Test Item Value Reference Range Interpretation Comments Creatinine Lvl (test code = Creatinine 0.78 0.50-1.40 Lvl) [facility]2019-06-22 10:24:00 Test Item Value Reference Range Interpretation Comments Sodium Lvl (test code = Sodium Lvl) 139 135-145 [facility]2019-06-22 10:24:00 Test Item Value Reference Range Interpretation Comments AGAP (test code = AGAP) 10.0 10.0-20.0 [facility]PficrnfRUIQRLUVBD0114-63-07 10:24:00 Test Item Value Reference Range Interpretation Comments PT (test code = PT) 22.5 s 12.0-14.7 [facility]JgoplwnJKPGTAZODT2037-76-63 10:24:00 Test Item Value Reference Range Interpretation Comments INR (test code = INR) 2.03 1 0.85-1.17 [facility]2019-06-22 10:24:00 Test Item Value Reference Range Interpretation Comments eGFR (test code = eGFR) 70 [facility]2019-06-22 10:24:00 Test Item Value Reference Range Interpretation Comments CO2 (test code = CO2) 31 24-32 [facility]2019-06-22 10:24:00 Test Item Value Reference Range Interpretation Comments Calcium Lvl (test code = Calcium Lvl) 8.8 8.5-10.5 [facility]2019-06-22 10:24:00 Test Item Value Reference Range Interpretation Comments Chloride Lvl (test code = Chloride Lvl) 102 95-109 [facility]2019-06-22 10:24:00 Test Item Value Reference Range Interpretation Comments BUN (test code = BUN) 19 7-22 [facility]2019-06-22 10:24:00 Test Item Value Reference Range Interpretation Comments Glucose Lvl (test code = Glucose Lvl) 101 70-99 [facility]2019-06-22 10:24:00 Test Item Value Reference Range Interpretation Comments Potassium Lvl (test code = Potassium 4.0 3.5-5.1 Lvl) [facility]2019-06-22 10:24:00 Test Item Value Reference Range Interpretation Comments Creatinine Lvl (test code = Creatinine 0.78 0.50-1.40 Lvl) [facility]2019-06-22 10:24:00 Test Item Value Reference Range Interpretation Comments Sodium Lvl (test code = Sodium Lvl) 139 135-145 [facility]2019-06-22 10:24:00 Test Item Value Reference Range Interpretation Comments AGAP (test code = AGAP) 10.0 10.0-20.0 [facility]HzitfbgQCGVTWKNAK7685-86-72 10:24:00 Test Item Value Reference Range Interpretation Comments PT (test code = PT) 22.5 s 12.0-14.7 [facility]ZngirloWLFFCUANQI5048-65-81 10:24:00 Test Item Value Reference Range Interpretation Comments INR (test code = INR) 2.03 1 0.85-1.17 [facility]2019-06-22 10:24:00 Test Item Value Reference Range Interpretation Comments eGFR (test code = eGFR) 70 [facility]2019-06-22 10:24:00 Test Item Value Reference Range Interpretation Comments CO2 (test code = CO2) 31 24-32 [facility]2019-06-22 10:24:00 Test Item Value Reference Range Interpretation Comments Calcium Lvl (test code = Calcium Lvl) 8.8 8.5-10.5 [facility]2019-06-22 10:24:00 Test Item Value Reference Range Interpretation Comments Chloride Lvl (test code = Chloride Lvl) 102 95-109 [facility]2019-06-22 10:24:00 Test Item Value Reference Range Interpretation Comments BUN (test code = BUN) 04-05 [facility]2019-06-22 10:24:00 Test Item Value Reference Range Interpretation Comments Glucose Lvl (test code = Glucose Lvl) 101 70-99 [facility]2019-06-22 10:24:00 Test Item Value Reference Range Interpretation Comments Potassium Lvl (test code = Potassium 4.0 3.5-5.1 Lvl) [facility]2019-06-22 10:24:00 Test Item Value Reference Range Interpretation Comments Creatinine Lvl (test code = Creatinine 0.78 0.50-1.40 Lvl) [facility]2019-06-22 10:24:00 Test Item Value Reference Range Interpretation Comments Sodium Lvl (test code = Sodium Lvl) 139 135-145 [facility]2019-06-22 10:24:00 Test Item Value Reference Range Interpretation Comments AGAP (test code = AGAP) 10.0 10.0-20.0 [facility]UfqdaulZQNOGUNBXM1742-85-63 10:24:00 Test Item Value Reference Range Interpretation Comments PT (test code = PT) 22.5 s 12.0-14.7 [facility]KkygvdjRXTQOQTESG7792-48-08 10:24:00 Test Item Value Reference Range Interpretation Comments INR (test code = INR) 2.03 1 0.85-1.17 [facility]2019-06-22 10:24:00 Test Item Value Reference Range Interpretation Comments eGFR (test code = eGFR) 70 [facility]2019-06-22 10:24:00 Test Item Value Reference Range Interpretation Comments CO2 (test code = CO2) 31 24-32 [facility]2019-06-22 10:24:00 Test Item Value Reference Range Interpretation Comments Calcium Lvl (test code = Calcium Lvl) 8.8 8.5-10.5 [facility]2019-06-22 10:24:00 Test Item Value Reference Range Interpretation Comments Chloride Lvl (test code = Chloride Lvl) 102 95-109 [facility]2019-06-22 10:24:00 Test Item Value Reference Range Interpretation Comments BUN (test code = BUN) 04-05 [facility]2019-06-22 10:24:00 Test Item Value Reference Range Interpretation Comments Glucose Lvl (test code = Glucose Lvl) 101 70-99 [facility]2019-06-22 10:24:00 Test Item Value Reference Range Interpretation Comments Potassium Lvl (test code = Potassium 4.0 3.5-5.1 Lvl) [facility]2019-06-22 10:24:00 Test Item Value Reference Range Interpretation Comments Creatinine Lvl (test code = Creatinine 0.78 0.50-1.40 Lvl) [facility]2019-06-22 10:24:00 Test Item Value Reference Range Interpretation Comments Sodium Lvl (test code = Sodium Lvl) 139 135-145 [facility]2019-06-22 10:24:00 Test Item Value Reference Range Interpretation Comments AGAP (test code = AGAP) 10.0 10.0-20.0 [facility]BneblcvUOTAZIZKFK1705-44-62 10:24:00 Test Item Value Reference Range Interpretation Comments PT (test code = PT) 22.5 s 12.0-14.7 [facility]UyrrlpyPAIEXZHILJ5288-56-06 10:24:00 Test Item Value Reference Range Interpretation Comments INR (test code = INR) 2.03 1 0.85-1.17 [facility]2019-06-22 10:24:00 Test Item Value Reference Range Interpretation Comments eGFR (test code = eGFR) 70 [facility]2019-06-22 10:24:00 Test Item Value Reference Range Interpretation Comments CO2 (test code = CO2) 31 24-32 [facility]2019-06-22 10:24:00 Test Item Value Reference Range Interpretation Comments Calcium Lvl (test code = Calcium Lvl) 8.8 8.5-10.5 [facility]2019-06-22 10:24:00 Test Item Value Reference Range Interpretation Comments Chloride Lvl (test code = Chloride Lvl) 102 95-109 [facility]2019-06-22 10:24:00 Test Item Value Reference Range Interpretation Comments BUN (test code = BUN) 19 -22 [facility]2019-06-22 10:24:00 Test Item Value Reference Range Interpretation Comments Glucose Lvl (test code = Glucose Lvl) 101 70-99 [facility]2019-06-22 10:24:00 Test Item Value Reference Range Interpretation Comments Potassium Lvl (test code = Potassium 4.0 3.5-5.1 Lvl) [facility]2019-06-22 10:24:00 Test Item Value Reference Range Interpretation Comments Creatinine Lvl (test code = Creatinine 0.78 0.50-1.40 Lvl) [facility]2019-06-22 10:24:00 Test Item Value Reference Range Interpretation Comments Sodium Lvl (test code = Sodium Lvl) 139 135-145 [facility]2019-06-22 10:24:00 Test Item Value Reference Range Interpretation Comments AGAP (test code = AGAP) 10.0 10.0-20.0 [facility]GcbfgvgWIMQBALYTQ7181-26-05 10:24:00 Test Item Value Reference Range Interpretation Comments PT (test code = PT) 22.5 s 12.0-14.7 [facility]HjhsokiTQJVMMQLAY3597-12-53 10:24:00 Test Item Value Reference Range Interpretation Comments INR (test code = INR) 2.03 1 0.85-1.17 [facility]2019-06-22 10:24:00 Test Item Value Reference Range Interpretation Comments eGFR (test code = eGFR) 70 [facility]2019-06-22 10:24:00 Test Item Value Reference Range Interpretation Comments CO2 (test code = CO2) 31 24-32 [facility]2019-06-22 10:24:00 Test Item Value Reference Range Interpretation Comments Calcium Lvl (test code = Calcium Lvl) 8.8 8.5-10.5 [facility]2019-06-22 10:24:00 Test Item Value Reference Range Interpretation Comments Chloride Lvl (test code = Chloride Lvl) 102 95-109 [facility]2019-06-22 10:24:00 Test Item Value Reference Range Interpretation Comments BUN (test code = BUN) 19 - [facility]2019-06-22 10:24:00 Test Item Value Reference Range Interpretation Comments Glucose Lvl (test code = Glucose Lvl) 101 70-99 [facility]2019-06-22 10:24:00 Test Item Value Reference Range Interpretation Comments Potassium Lvl (test code = Potassium 4.0 3.5-5.1 Lvl) [facility]2019-06-22 10:24:00 Test Item Value Reference Range Interpretation Comments Creatinine Lvl (test code = Creatinine 0.78 0.50-1.40 Lvl) [facility]2019-06-22 10:24:00 Test Item Value Reference Range Interpretation Comments Sodium Lvl (test code = Sodium Lvl) 139 135-145 [facility]2019-06-22 10:24:00 Test Item Value Reference Range Interpretation Comments AGAP (test code = AGAP) 10.0 10.0-20.0 [facility]FtpbclgUCADOTDKFD7245-80-28 10:24:00 Test Item Value Reference Range Interpretation Comments PT (test code = PT) 22.5 s 12.0-14.7 [facility]HofiwquAOETQRUAAZ1791-89-54 10:24:00 Test Item Value Reference Range Interpretation Comments INR (test code = INR) 2.03 1 0.85-1.17 [facility]2019-06-22 10:24:00 Test Item Value Reference Range Interpretation Comments eGFR (test code = eGFR) 70 [facility]2019-06-22 10:24:00 Test Item Value Reference Range Interpretation Comments CO2 (test code = CO2) 31 24-32 [facility]2019-06-22 10:24:00 Test Item Value Reference Range Interpretation Comments Calcium Lvl (test code = Calcium Lvl) 8.8 8.5-10.5 [facility]2019-06-22 10:24:00 Test Item Value Reference Range Interpretation Comments Chloride Lvl (test code = Chloride Lvl) 102 95-109 [facility]2019-06-22 10:24:00 Test Item Value Reference Range Interpretation Comments BUN (test code = BUN) 19 7-22 [facility]2019-06-22 10:24:00 Test Item Value Reference Range Interpretation Comments Glucose Lvl (test code = Glucose Lvl) 101 70-99 [facility]2019-06-22 10:24:00 Test Item Value Reference Range Interpretation Comments Potassium Lvl (test code = Potassium 4.0 3.5-5.1 Lvl) [facility]2019-06-22 10:24:00 Test Item Value Reference Range Interpretation Comments Creatinine Lvl (test code = Creatinine 0.78 0.50-1.40 Lvl) [facility]2019-06-22 10:24:00 Test Item Value Reference Range Interpretation Comments Sodium Lvl (test code = Sodium Lvl) 139 135-145 [facility]2019-06-22 10:24:00 Test Item Value Reference Range Interpretation Comments AGAP (test code = AGAP) 10.0 10.0-20.0 [facility]LwlwxvpSNLIFPUMFQ1768-30-28 10:24:00 Test Item Value Reference Range Interpretation Comments PT (test code = PT) 22.5 s 12.0-14.7 [facility]BchlzmxKMTVYYBLYE3990-75-82 10:24:00 Test Item Value Reference Range Interpretation Comments INR (test code = INR) 2.03 1 0.85-1.17 [facility]2019-06-22 10:24:00 Test Item Value Reference Range Interpretation Comments eGFR (test code = eGFR) 70 [facility]2019-06-22 10:24:00 Test Item Value Reference Range Interpretation Comments CO2 (test code = CO2) 31 24-32 [facility]2019-06-22 10:24:00 Test Item Value Reference Range Interpretation Comments Calcium Lvl (test code = Calcium Lvl) 8.8 8.5-10.5 [facility]2019-06-22 10:24:00 Test Item Value Reference Range Interpretation Comments Chloride Lvl (test code = Chloride Lvl) 102 95-109 [facility]2019-06-22 10:24:00 Test Item Value Reference Range Interpretation Comments BUN (test code = BUN) 19 7-22 [facility]2019-06-22 10:24:00 Test Item Value Reference Range Interpretation Comments Glucose Lvl (test code = Glucose Lvl) 101 70-99 [facility]2019-06-22 10:24:00 Test Item Value Reference Range Interpretation Comments Potassium Lvl (test code = Potassium 4.0 3.5-5.1 Lvl) [facility]2019-06-22 10:24:00 Test Item Value Reference Range Interpretation Comments Creatinine Lvl (test code = Creatinine 0.78 0.50-1.40 Lvl) [facility]2019-06-22 10:24:00 Test Item Value Reference Range Interpretation Comments Sodium Lvl (test code = Sodium Lvl) 139 135-145 [facility]2019-06-22 10:24:00 Test Item Value Reference Range Interpretation Comments AGAP (test code = AGAP) 10.0 10.0-20.0 [facility]AnfzndcKKADBQRYDJ6371-21-20 10:24:00 Test Item Value Reference Range Interpretation Comments PT (test code = PT) 22.5 s 12.0-14.7 [facility] NortheastKddomltKPUPSMOYKV9186-01-44 10:24:00 Test Item Value Reference Range Interpretation Comments INR (test code = INR) 2.03 1 0.85-1.17 [facility]2019-06-22 10:24:00 Test Item Value Reference Range Interpretation Comments eGFR (test code = eGFR) 70 [facility]2019-06-22 10:24:00 Test Item Value Reference Range Interpretation Comments CO2 (test code = CO2) 31 24-32 [facility]2019-06-22 10:24:00 Test Item Value Reference Range Interpretation Comments Calcium Lvl (test code = Calcium Lvl) 8.8 8.5-10.5 [facility]2019-06-22 10:24:00 Test Item Value Reference Range Interpretation Comments Chloride Lvl (test code = Chloride Lvl) 102 95-109 [facility]2019-06-22 10:24:00 Test Item Value Reference Range Interpretation Comments BUN (test code = BUN) 19 7-22 [facility]2019-06-22 10:24:00 Test Item Value Reference Range Interpretation Comments Glucose Lvl (test code = Glucose Lvl) 101 70-99 [facility]2019-06-22 10:24:00 Test Item Value Reference Range Interpretation Comments Potassium Lvl (test code = Potassium 4.0 3.5-5.1 Lvl) [facility]2019-06-22 10:24:00 Test Item Value Reference Range Interpretation Comments Creatinine Lvl (test code = Creatinine 0.78 0.50-1.40 Lvl) [facility]2019-06-22 10:24:00 Test Item Value Reference Range Interpretation Comments Sodium Lvl (test code = Sodium Lvl) 139 135-145 [facility]2019-06-22 10:24:00 Test Item Value Reference Range Interpretation Comments AGAP (test code = AGAP) 10.0 10.0-20.0 [facility]OxvfvjjWJJVWWBGZT7808-20-54 10:24:00 Test Item Value Reference Range Interpretation Comments PT (test code = PT) 22.5 s 12.0-14.7 [facility]VgxvkvuWKHHGDIMRK5525-12-70 10:24:00 Test Item Value Reference Range Interpretation Comments INR (test code = INR) 2.03 1 0.85-1.17 [facility]2019-06-22 10:24:00 Test Item Value Reference Range Interpretation Comments eGFR (test code = eGFR) 70 [facility]2019-06-22 10:24:00 Test Item Value Reference Range Interpretation Comments CO2 (test code = CO2) 31 24-32 [facility]2019-06-22 10:24:00 Test Item Value Reference Range Interpretation Comments Calcium Lvl (test code = Calcium Lvl) 8.8 8.5-10.5 [facility]2019-06-22 10:24:00 Test Item Value Reference Range Interpretation Comments Chloride Lvl (test code = Chloride Lvl) 102 95-109 [facility]2019-06-22 10:24:00 Test Item Value Reference Range Interpretation Comments BUN (test code = BUN) 19 7-22 [facility]2019-06-22 10:24:00 Test Item Value Reference Range Interpretation Comments Glucose Lvl (test code = Glucose Lvl) 101 70-99 [facility]2019-06-22 10:24:00 Test Item Value Reference Range Interpretation Comments Potassium Lvl (test code = Potassium 4.0 3.5-5.1 Lvl) [facility]2019-06-22 10:24:00 Test Item Value Reference Range Interpretation Comments Creatinine Lvl (test code = Creatinine 0.78 0.50-1.40 Lvl) [facility]2019-06-22 10:24:00 Test Item Value Reference Range Interpretation Comments Sodium Lvl (test code = Sodium Lvl) 139 135-145 [facility]2019-06-22 10:24:00 Test Item Value Reference Range Interpretation Comments AGAP (test code = AGAP) 10.0 10.0-20.0 [facility]UjnojjvHBIOYRSJBS5194-58-60 10:24:00 Test Item Value Reference Range Interpretation Comments PT (test code = PT) 22.5 s 12.0-14.7 [facility]GpcuisgXAPVPLDRDM0360-11-76 10:24:00 Test Item Value Reference Range Interpretation Comments INR (test code = INR) 2.03 1 0.85-1.17 [facility]2019-06-22 10:24:00 Test Item Value Reference Range Interpretation Comments eGFR (test code = eGFR) 70 [facility]2019-06-22 10:24:00 Test Item Value Reference Range Interpretation Comments CO2 (test code = CO2) 31 24-32 [facility]2019-06-22 10:24:00 Test Item Value Reference Range Interpretation Comments Calcium Lvl (test code = Calcium Lvl) 8.8 8.5-10.5 [facility]2019-06-22 10:24:00 Test Item Value Reference Range Interpretation Comments Chloride Lvl (test code = Chloride Lvl) 102 95-109 [facility]2019-06-22 10:24:00 Test Item Value Reference Range Interpretation Comments BUN (test code = BUN) 19 7-22 [facility]2019-06-22 10:24:00 Test Item Value Reference Range Interpretation Comments Glucose Lvl (test code = Glucose Lvl) 101 70-99 [facility]2019-06-22 10:24:00 Test Item Value Reference Range Interpretation Comments Potassium Lvl (test code = Potassium 4.0 3.5-5.1 Lvl) [facility]2019-06-22 10:24:00 Test Item Value Reference Range Interpretation Comments Creatinine Lvl (test code = Creatinine 0.78 0.50-1.40 Lvl) [facility]2019-06-22 10:24:00 Test Item Value Reference Range Interpretation Comments Sodium Lvl (test code = Sodium Lvl) 139 135-145 [facility]2019-06-22 10:24:00 Test Item Value Reference Range Interpretation Comments AGAP (test code = AGAP) 10.0 10.0-20.0 [id number] 10:24:00 Test Item Value Reference Range Interpretation Comments PT (test code = PT) 22.5 s 12.0-14.7 [facility] 10:24:00 Test Item Value Reference Range Interpretation Comments INR (test code = INR) 2.03 1 0.85-1.17 [facility]2019-06-22 10:24:00 Test Item Value Reference Range Interpretation Comments eGFR (test code = eGFR) 70 [facility]2019-06-22 10:24:00 Test Item Value Reference Range Interpretation Comments CO2 (test code = CO2) [facility]2019-06-22 10:24:00 Test Item Value Reference Range Interpretation Comments Calcium Lvl (test code = Calcium Lvl) 8.8 8.5-10.5 [facility]2019-06-22 10:24:00 Test Item Value Reference Range Interpretation Comments Chloride Lvl (test code = Chloride Lvl) 102 95-109 [facility]2019-06-22 10:24:00 Test Item Value Reference Range Interpretation Comments eGFR (test code = eGFR) 70 [facility]2019-06-22 10:24:00 Test Item Value Reference Range Interpretation Comments BUN (test code = BUN) 04-05 [facility]2019-06-22 10:24:00 Test Item Value Reference Range Interpretation Comments CO2 (test code = CO2) [facility]2019-06-22 10:24:00 Test Item Value Reference Range Interpretation Comments Calcium Lvl (test code = Calcium Lvl) 8.8 8.5-10.5 [facility]2019-06-22 10:24:00 Test Item Value Reference Range Interpretation Comments Chloride Lvl (test code = Chloride Lvl) 102 95-109 [facility]2019-06-22 10:24:00 Test Item Value Reference Range Interpretation Comments BUN (test code = BUN) 04-05 [facility]2019-06-22 10:24:00 Test Item Value Reference Range Interpretation Comments Glucose Lvl (test code = Glucose Lvl) 101 70-99 [facility]2019-06-22 10:24:00 Test Item Value Reference Range Interpretation Comments Potassium Lvl (test code = Potassium 4.0 3.5-5.1 Lvl) [facility]2019-06-22 10:24:00 Test Item Value Reference Range Interpretation Comments Creatinine Lvl (test code = Creatinine 0.78 0.50-1.40 Lvl) [facility]2019-06-22 10:24:00 Test Item Value Reference Range Interpretation Comments Sodium Lvl (test code = Sodium Lvl) 139 135-145 [facility]2019-06-22 10:24:00 Test Item Value Reference Range Interpretation Comments AGAP (test code = AGAP) 10.0 10.0-20.0 [facility]usznyaAHHYNBOCGJ5093-22-78 10:24:00 Test Item Value Reference Range Interpretation Comments PT (test code = PT) 22.5 s 12.0-14.7 [facility]2019-06-22 10:24:00 Test Item Value Reference Range Interpretation Comments Glucose Lvl (test code = Glucose Lvl) 101 70-99 [facility]RqlglnnBLCINNNOOA3927-75-25 10:24:00 Test Item Value Reference Range Interpretation Comments INR (test code = INR) 2.03 1 0.85-1.17 [facility]2019-06-22 10:24:00 Test Item Value Reference Range Interpretation Comments Potassium Lvl (test code = Potassium 4.0 3.5-5.1 Lvl) [facility]2019-06-22 10:24:00 Test Item Value Reference Range Interpretation Comments Creatinine Lvl (test code = Creatinine 0.78 0.50-1.40 Lvl) [facility]2019-06-22 10:24:00 Test Item Value Reference Range Interpretation Comments Sodium Lvl (test code = Sodium Lvl) 139 135-145 [facility]2019-06-22 10:24:00 Test Item Value Reference Range Interpretation Comments AGAP (test code = AGAP) 10.0 10.0-20.0 [facility]PszsfxvHSGSLCWZDI4211-83-70 10:24:00 Test Item Value Reference Range Interpretation Comments PT (test code = PT) 22.5 s 12.0-14.7 [facility]GrmbjcxFVNLRADZTM3798-90-67 10:24:00 Test Item Value Reference Range Interpretation Comments INR (test code = INR) 2.03 1 0.85-1.17 [facility]2019-06-22 10:24:00 Test Item Value Reference Range Interpretation Comments eGFR (test code = eGFR) 70 [facility]2019-06-22 10:24:00 Test Item Value Reference Range Interpretation Comments CO2 (test code = CO2) 31 24-32 [facility]2019-06-22 10:24:00 Test Item Value Reference Range Interpretation Comments Calcium Lvl (test code = Calcium Lvl) 8.8 8.5-10.5 [facility]2019-06-22 10:24:00 Test Item Value Reference Range Interpretation Comments Chloride Lvl (test code = Chloride Lvl) 102 95-109 [facility]2019-06-22 10:24:00 Test Item Value Reference Range Interpretation Comments BUN (test code = BUN) 19 7-22 [facility]2019-06-22 10:24:00 Test Item Value Reference Range Interpretation Comments Glucose Lvl (test code = Glucose Lvl) 101 70-99 [facility]2019-06-22 10:24:00 Test Item Value Reference Range Interpretation Comments Potassium Lvl (test code = Potassium 4.0 3.5-5.1 Lvl) [facility]2019-06-22 10:24:00 Test Item Value Reference Range Interpretation Comments Creatinine Lvl (test code = Creatinine 0.78 0.50-1.40 Lvl) [facility]2019-06-22 10:24:00 Test Item Value Reference Range Interpretation Comments Sodium Lvl (test code = Sodium Lvl) 139 135-145 [facility]2019-06-22 10:24:00 Test Item Value Reference Range Interpretation Comments AGAP (test code = AGAP) 10.0 10.0-20.0 [facility]DmigjmsCBQOQHYRST0784-15-41 10:24:00 Test Item Value Reference Range Interpretation Comments PT (test code = PT) 22.5 s 12.0-14.7 [facility]ZbvjndxJSMTTVSLZM4604-89-29 10:24:00 Test Item Value Reference Range Interpretation Comments INR (test code = INR) 2.03 1 0.85-1.17 [facility]2019-06-22 10:24:00 Test Item Value Reference Range Interpretation Comments eGFR (test code = eGFR) 70 [facility]2019-06-22 10:24:00 Test Item Value Reference Range Interpretation Comments CO2 (test code = CO2) 31 -32 [facility]2019-06-22 10:24:00 Test Item Value Reference Range Interpretation Comments Calcium Lvl (test code = Calcium Lvl) 8.8 8.5-10.5 [facility]2019-06-22 10:24:00 Test Item Value Reference Range Interpretation Comments Chloride Lvl (test code = Chloride Lvl) 102 95-109 [facility]2019-06-22 10:24:00 Test Item Value Reference Range Interpretation Comments BUN (test code = BUN) 19 7-22 [facility]2019-06-22 10:24:00 Test Item Value Reference Range Interpretation Comments Glucose Lvl (test code = Glucose Lvl) 101 70-99 [facility]2019-06-22 10:24:00 Test Item Value Reference Range Interpretation Comments Potassium Lvl (test code = Potassium 4.0 3.5-5.1 Lvl) [facility]2019-06-22 10:24:00 Test Item Value Reference Range Interpretation Comments Creatinine Lvl (test code = Creatinine 0.78 0.50-1.40 Lvl) [facility]2019-06-22 10:24:00 Test Item Value Reference Range Interpretation Comments Sodium Lvl (test code = Sodium Lvl) 139 135-145 [facility]2019-06-22 10:24:00 Test Item Value Reference Range Interpretation Comments AGAP (test code = AGAP) 10.0 10.0-20.0 [facility]AbbgzufJGEPDTLKFK7624-17-28 10:24:00 Test Item Value Reference Range Interpretation Comments PT (test code = PT) 22.5 s 12.0-14.7 [facility] NortheastLrzzpbbITHPWZXPRY6692-19-80 10:24:00 Test Item Value Reference Range Interpretation Comments INR (test code = INR) 2.03 1 0.85-1.17 [facility]2019-06-22 10:24:00 Test Item Value Reference Range Interpretation Comments eGFR (test code = eGFR) 70 [facility]2019-06-22 10:24:00 Test Item Value Reference Range Interpretation Comments CO2 (test code = CO2) 31 -32 [facility]2019-06-22 10:24:00 Test Item Value Reference Range Interpretation Comments Calcium Lvl (test code = Calcium Lvl) 8.8 8.5-10.5 [facility]2019-06-22 10:24:00 Test Item Value Reference Range Interpretation Comments Chloride Lvl (test code = Chloride Lvl) 102 95-109 [facility]2019-06-22 10:24:00 Test Item Value Reference Range Interpretation Comments BUN (test code = BUN) 19 7-22 [facility]2019-06-22 10:24:00 Test Item Value Reference Range Interpretation Comments Glucose Lvl (test code = Glucose Lvl) 101 70-99 [facility]2019-06-22 10:24:00 Test Item Value Reference Range Interpretation Comments Potassium Lvl (test code = Potassium 4.0 3.5-5.1 Lvl) [facility]2019-06-22 10:24:00 Test Item Value Reference Range Interpretation Comments Creatinine Lvl (test code = Creatinine 0.78 0.50-1.40 Lvl) [facility]2019-06-22 10:24:00 Test Item Value Reference Range Interpretation Comments Sodium Lvl (test code = Sodium Lvl) 139 135-145 [facility]2019-06-22 10:24:00 Test Item Value Reference Range Interpretation Comments AGAP (test code = AGAP) 10.0 10.0-20.0 [id number] 10:24:00 Test Item Value Reference Range Interpretation Comments PT (test code = PT) 22.5 s 12.0-14.7 [facility] NortheastZppckpmEOSVZROOVK0197-80-36 10:24:00 Test Item Value Reference Range Interpretation Comments INR (test code = INR) 2.03 1 0.85-1.17 [facility]2019-06-22 10:24:00 Test Item Value Reference Range Interpretation Comments eGFR (test code = eGFR) 70 [facility]2019-06-22 10:24:00 Test Item Value Reference Range Interpretation Comments CO2 (test code = CO2) 31 24-32 [facility]2019-06-22 10:24:00 Test Item Value Reference Range Interpretation Comments Calcium Lvl (test code = Calcium Lvl) 8.8 8.5-10.5 [facility]2019-06-22 10:24:00 Test Item Value Reference Range Interpretation Comments Chloride Lvl (test code = Chloride Lvl) 102 95-109 [facility]2019-06-22 10:24:00 Test Item Value Reference Range Interpretation Comments BUN (test code = BUN) 19 7-22 [facility]2019-06-22 10:24:00 Test Item Value Reference Range Interpretation Comments Glucose Lvl (test code = Glucose Lvl) 101 70-99 [facility]2019-06-22 10:24:00 Test Item Value Reference Range Interpretation Comments Potassium Lvl (test code = Potassium 4.0 3.5-5.1 Lvl) [facility]2019-06-22 10:24:00 Test Item Value Reference Range Interpretation Comments Creatinine Lvl (test code = Creatinine 0.78 0.50-1.40 Lvl) [facility]2019-06-22 10:24:00 Test Item Value Reference Range Interpretation Comments Sodium Lvl (test code = Sodium Lvl) 139 135-145 [facility]2019-06-22 10:24:00 Test Item Value Reference Range Interpretation Comments AGAP (test code = AGAP) 10.0 10.0-20.0 [id number] 10:24:00 Test Item Value Reference Range Interpretation Comments PT (test code = PT) 22.5 s 12.0-14.7 [facility]CyhqqqhNEVKJMSXYD1579-37-18 10:24:00 Test Item Value Reference Range Interpretation Comments INR (test code = INR) 2.03 1 0.85-1.17 [facility]2019-06-22 10:24:00 Test Item Value Reference Range Interpretation Comments eGFR (test code = eGFR) 70 [facility]2019-06-22 10:24:00 Test Item Value Reference Range Interpretation Comments CO2 (test code = CO2) 31 24-32 [facility]2019-06-22 10:24:00 Test Item Value Reference Range Interpretation Comments Calcium Lvl (test code = Calcium Lvl) 8.8 8.5-10.5 [facility]2019-06-22 10:24:00 Test Item Value Reference Range Interpretation Comments Chloride Lvl (test code = Chloride Lvl) 102 95-109 [facility]2019-06-22 10:24:00 Test Item Value Reference Range Interpretation Comments BUN (test code = BUN) 19 7-22 [facility]2019-06-22 10:24:00 Test Item Value Reference Range Interpretation Comments Glucose Lvl (test code = Glucose Lvl) 101 70-99 [facility]2019-06-22 10:24:00 Test Item Value Reference Range Interpretation Comments Potassium Lvl (test code = Potassium 4.0 3.5-5.1 Lvl) [facility]2019-06-22 10:24:00 Test Item Value Reference Range Interpretation Comments Creatinine Lvl (test code = Creatinine 0.78 0.50-1.40 Lvl) [facility]2019-06-22 10:24:00 Test Item Value Reference Range Interpretation Comments Sodium Lvl (test code = Sodium Lvl) 139 135-145 [facility]2019-06-22 10:24:00 Test Item Value Reference Range Interpretation Comments AGAP (test code = AGAP) 10.0 10.0-20.0 [id number] 10:24:00 Test Item Value Reference Range Interpretation Comments PT (test code = PT) 22.5 s 12.0-14.7 [facility] NortheastGuzzxvlKXZXRNUVQJ2451-83-25 10:24:00 Test Item Value Reference Range Interpretation Comments INR (test code = INR) 2.03 1 0.85-1.17 [facility]2019-06-22 10:24:00 Test Item Value Reference Range Interpretation Comments eGFR (test code = eGFR) 70 [facility]2019-06-22 10:24:00 Test Item Value Reference Range Interpretation Comments CO2 (test code = CO2) 31 24-32 [facility]2019-06-22 10:24:00 Test Item Value Reference Range Interpretation Comments Calcium Lvl (test code = Calcium Lvl) 8.8 8.5-10.5 [facility]2019-06-22 10:24:00 Test Item Value Reference Range Interpretation Comments Chloride Lvl (test code = Chloride Lvl) 102 95-109 [facility]2019-06-22 10:24:00 Test Item Value Reference Range Interpretation Comments BUN (test code = BUN) 19 04-05 [facility]2019-06-22 10:24:00 Test Item Value Reference Range Interpretation Comments Glucose Lvl (test code = Glucose Lvl) 101 70-99 [facility]2019-06-22 10:24:00 Test Item Value Reference Range Interpretation Comments Potassium Lvl (test code = Potassium 4.0 3.5-5.1 Lvl) [facility]2019-06-22 10:24:00 Test Item Value Reference Range Interpretation Comments Creatinine Lvl (test code = Creatinine 0.78 0.50-1.40 Lvl) [facility]2019-06-22 10:24:00 Test Item Value Reference Range Interpretation Comments Sodium Lvl (test code = Sodium Lvl) 139 135-145 [facility]2019-06-22 10:24:00 Test Item Value Reference Range Interpretation Comments AGAP (test code = AGAP) 10.0 10.0-20.0 [facility] Nort[id number] 10:24:00 Test Item Value Reference Range Interpretation Comments PT (test code = PT) 22.5 s 12.0-14.7 [facility] NortheastSmfbqgfFNADOCZJWR2009-50-11 10:24:00 Test Item Value Reference Range Interpretation Comments INR (test code = INR) 2.03 1 0.85-1.17 [facility]2019-06-22 10:24:00 Test Item Value Reference Range Interpretation Comments eGFR (test code = eGFR) 70 [facility]2019-06-22 10:24:00 Test Item Value Reference Range Interpretation Comments CO2 (test code = CO2) 31 24-32 [facility]2019-06-22 10:24:00 Test Item Value Reference Range Interpretation Comments Calcium Lvl (test code = Calcium Lvl) 8.8 8.5-10.5 [facility]2019-06-22 10:24:00 Test Item Value Reference Range Interpretation Comments Chloride Lvl (test code = Chloride Lvl) 102 95-109 [facility]2019-06-22 10:24:00 Test Item Value Reference Range Interpretation Comments BUN (test code = BUN) 19 04-05 [facility]2019-06-22 10:24:00 Test Item Value Reference Range Interpretation Comments Glucose Lvl (test code = Glucose Lvl) 101 70-99 [facility]2019-06-22 10:24:00 Test Item Value Reference Range Interpretation Comments Potassium Lvl (test code = Potassium 4.0 3.5-5.1 Lvl) [facility]2019-06-22 10:24:00 Test Item Value Reference Range Interpretation Comments Creatinine Lvl (test code = Creatinine 0.78 0.50-1.40 Lvl) [facility]2019-06-22 10:24:00 Test Item Value Reference Range Interpretation Comments Sodium Lvl (test code = Sodium Lvl) 139 135-145 [facility]2019-06-22 10:24:00 Test Item Value Reference Range Interpretation Comments AGAP (test code = AGAP) 10.0 10.0-20.0 [facility]YhndaqbKCCMDBLKCU6392-95-73 10:24:00 Test Item Value Reference Range Interpretation Comments PT (test code = PT) 22.5 s 12.0-14.7 [facility]SjijipmSZIIBYTGVW1881-05-83 10:24:00 Test Item Value Reference Range Interpretation Comments INR (test code = INR) 2.03 1 0.85-1.17 [facility]2019-06-22 10:24:00 Test Item Value Reference Range Interpretation Comments eGFR (test code = eGFR) 70 [facility]2019-06-22 10:24:00 Test Item Value Reference Range Interpretation Comments CO2 (test code = CO2) 31 24-32 [facility]2019-06-22 10:24:00 Test Item Value Reference Range Interpretation Comments Calcium Lvl (test code = Calcium Lvl) 8.8 8.5-10.5 [facility]2019-06-22 10:24:00 Test Item Value Reference Range Interpretation Comments Chloride Lvl (test code = Chloride Lvl) 102 95-109 [facility]2019-06-22 10:24:00 Test Item Value Reference Range Interpretation Comments BUN (test code = BUN) 19 -22 [facility]2019-06-22 10:24:00 Test Item Value Reference Range Interpretation Comments Glucose Lvl (test code = Glucose Lvl) 101 70-99 [facility]2019-06-22 10:24:00 Test Item Value Reference Range Interpretation Comments Potassium Lvl (test code = Potassium 4.0 3.5-5.1 Lvl) [facility]2019-06-22 10:24:00 Test Item Value Reference Range Interpretation Comments Creatinine Lvl (test code = Creatinine 0.78 0.50-1.40 Lvl) [facility]2019-06-22 10:24:00 Test Item Value Reference Range Interpretation Comments Sodium Lvl (test code = Sodium Lvl) 139 135-145 [facility]2019-06-22 10:24:00 Test Item Value Reference Range Interpretation Comments AGAP (test code = AGAP) 10.0 10.0-20.0 [id number] 10:24:00 Test Item Value Reference Range Interpretation Comments PT (test code = PT) 22.5 s 12.0-14.7 [facility] NortheastKerqurvULWSTUVIET4280-62-70 10:24:00 Test Item Value Reference Range Interpretation Comments INR (test code = INR) 2.03 1 0.85-1.17 [facility]2019-06-22 10:24:00 Test Item Value Reference Range Interpretation Comments eGFR (test code = eGFR) 70 [facility]2019-06-22 10:24:00 Test Item Value Reference Range Interpretation Comments CO2 (test code = CO2) 31 24-32 [facility]2019-06-22 10:24:00 Test Item Value Reference Range Interpretation Comments Calcium Lvl (test code = Calcium Lvl) 8.8 8.5-10.5 [facility]2019-06-22 10:24:00 Test Item Value Reference Range Interpretation Comments Chloride Lvl (test code = Chloride Lvl) 102 95-109 [facility]2019-06-22 10:24:00 Test Item Value Reference Range Interpretation Comments BUN (test code = BUN) 19 - [facility]2019-06-22 10:24:00 Test Item Value Reference Range Interpretation Comments Glucose Lvl (test code = Glucose Lvl) 101 70-99 [facility]2019-06-22 10:24:00 Test Item Value Reference Range Interpretation Comments Potassium Lvl (test code = Potassium 4.0 3.5-5.1 Lvl) [facility]2019-06-22 10:24:00 Test Item Value Reference Range Interpretation Comments Creatinine Lvl (test code = Creatinine 0.78 0.50-1.40 Lvl) [facility]2019-06-22 10:24:00 Test Item Value Reference Range Interpretation Comments Sodium Lvl (test code = Sodium Lvl) 139 135-145 [facility]2019-06-22 10:24:00 Test Item Value Reference Range Interpretation Comments AGAP (test code = AGAP) 10.0 10.0-20.0 [facility]Y[id number] 10:24:00 Test Item Value Reference Range Interpretation Comments PT (test code = PT) 22.5 s 12.0-14.7 [facility] NortheastPqciwfyGPKGUNMBFT0235-48-45 10:24:00 Test Item Value Reference Range Interpretation Comments INR (test code = INR) 2.03 1 0.85-1.17 [facility]2019-06-22 10:24:00 Test Item Value Reference Range Interpretation Comments eGFR (test code = eGFR) 70 [facility]2019-06-22 10:24:00 Test Item Value Reference Range Interpretation Comments CO2 (test code = CO2) 31 24-32 [facility]2019-06-22 10:24:00 Test Item Value Reference Range Interpretation Comments Calcium Lvl (test code = Calcium Lvl) 8.8 8.5-10.5 [facility]2019-06-22 10:24:00 Test Item Value Reference Range Interpretation Comments Chloride Lvl (test code = Chloride Lvl) 102 95-109 [facility]2019-06-22 10:24:00 Test Item Value Reference Range Interpretation Comments BUN (test code = BUN) 19 7-22 [facility]2019-06-22 10:24:00 Test Item Value Reference Range Interpretation Comments Glucose Lvl (test code = Glucose Lvl) 101 70-99 [facility]2019-06-22 10:24:00 Test Item Value Reference Range Interpretation Comments Potassium Lvl (test code = Potassium 4.0 3.5-5.1 Lvl) [facility]2019-06-22 10:24:00 Test Item Value Reference Range Interpretation Comments Creatinine Lvl (test code = Creatinine 0.78 0.50-1.40 Lvl) [facility]2019-06-22 10:24:00 Test Item Value Reference Range Interpretation Comments Sodium Lvl (test code = Sodium Lvl) 139 135-145 [facility]2019-06-22 10:24:00 Test Item Value Reference Range Interpretation Comments AGAP (test code = AGAP) 10.0 10.0-20.0 [facility]KfnoplbYTLTRVQNMU8467-92-30 10:24:00 Test Item Value Reference Range Interpretation Comments PT (test code = PT) 22.5 s 12.0-14.7 [facility] NortheastLiomtzkHPQPEUEBYB9771-43-62 10:24:00 Test Item Value Reference Range Interpretation Comments INR (test code = INR) 2.03 1 0.85-1.17 [facility]2019-06-22 10:24:00 Test Item Value Reference Range Interpretation Comments eGFR (test code = eGFR) 70 [facility]2019-06-22 10:24:00 Test Item Value Reference Range Interpretation Comments CO2 (test code = CO2) 31 24-32 [facility]2019-06-22 10:24:00 Test Item Value Reference Range Interpretation Comments Calcium Lvl (test code = Calcium Lvl) 8.8 8.5-10.5 [facility]2019-06-22 10:24:00 Test Item Value Reference Range Interpretation Comments Chloride Lvl (test code = Chloride Lvl) 102 95-109 [facility]2019-06-22 10:24:00 Test Item Value Reference Range Interpretation Comments BUN (test code = BUN) 19 7-22 [facility]2019-06-22 10:24:00 Test Item Value Reference Range Interpretation Comments Glucose Lvl (test code = Glucose Lvl) 101 70-99 [facility]2019-06-22 10:24:00 Test Item Value Reference Range Interpretation Comments Potassium Lvl (test code = Potassium 4.0 3.5-5.1 Lvl) [facility]2019-06-22 10:24:00 Test Item Value Reference Range Interpretation Comments Creatinine Lvl (test code = Creatinine 0.78 0.50-1.40 Lvl) [facility]2019-06-22 10:24:00 Test Item Value Reference Range Interpretation Comments Sodium Lvl (test code = Sodium Lvl) 139 135-145 [facility]2019-06-22 10:24:00 Test Item Value Reference Range Interpretation Comments AGAP (test code = AGAP) 10.0 10.0-20.0 [facility]PO[facility]GLMMN2520-82-59 10:24:00 Test Item Value Reference Range Interpretation Comments PT (test code = PT) 22.5 s 12.0-14.7 [facility]jpkmrEXBYCTICFG9506-17-38 10:24:00 Test Item Value Reference Range Interpretation Comments INR (test code = INR) 2.03 1 0.85-1.17 [facility]2019-06-22 10:24:00 Test Item Value Reference Range Interpretation Comments eGFR (test code = eGFR) 70 [facility]2019-06-22 10:24:00 Test Item Value Reference Range Interpretation Comments CO2 (test code = CO2) 31 24-32 [facility]2019-06-22 10:24:00 Test Item Value Reference Range Interpretation Comments Calcium Lvl (test code = Calcium Lvl) 8.8 8.5-10.5 [facility]2019-06-22 10:24:00 Test Item Value Reference Range Interpretation Comments Chloride Lvl (test code = Chloride Lvl) 102 95-109 [facility]2019-06-22 10:24:00 Test Item Value Reference Range Interpretation Comments BUN (test code = BUN) 19 7-22 [facility]2019-06-22 10:24:00 Test Item Value Reference Range Interpretation Comments Glucose Lvl (test code = Glucose Lvl) 101 70-99 [facility]2019-06-22 10:24:00 Test Item Value Reference Range Interpretation Comments Potassium Lvl (test code = Potassium 4.0 3.5-5.1 Lvl) [facility]2019-06-22 10:24:00 Test Item Value Reference Range Interpretation Comments Creatinine Lvl (test code = Creatinine 0.78 0.50-1.40 Lvl) [facility]2019-06-22 10:24:00 Test Item Value Reference Range Interpretation Comments Sodium Lvl (test code = Sodium Lvl) 139 135-145 [facility]2019-06-22 10:24:00 Test Item Value Reference Range Interpretation Comments AGAP (test code = AGAP) 10.0 10.0-20.0 [facility]UmvkgziLFQDHFIXSB1562-77-13 10:24:00 Test Item Value Reference Range Interpretation Comments PT (test code = PT) 22.5 s 12.0-14.7 [facility]DgblzgxFIYTULMFHL2582-21-95 10:24:00 Test Item Value Reference Range Interpretation Comments INR (test code = INR) 2.03 1 0.85-1.17 [facility]MjihnjoWDXDDZXLBHLV4848-11-89 09:31:00 Test Item Value Reference Range Interpretation Comments AGAP (test code = AGAP) 10.1 10.0-20.0 [facility] CenterAibmrsdJRLNKTCHLGGY5809-55-02 09:31:00 Test Item Value Reference Range Interpretation Comments Calcium Lvl (test code = Calcium Lvl) 8.8 8.5-10.5 [facility] CenterNudvnvwHCFIXBVUZBCR4247-55-93 09:31:00 Test Item Value Reference Range Interpretation Comments CO2 (test code = CO2) 31 24-32 [facility] CenterKmzmxyrRRFXIJKOTEZX8494-87-48 09:31:00 Test Item Value Reference Range Interpretation Comments Chloride Lvl (test code = Chloride Lvl) 101 95-109 [facility] CenterHmosqufKEONUEGGKQMS0114-78-00 09:31:00 Test Item Value Reference Range Interpretation Comments BUN (test code = BUN) 21 7-22 [facility]XnrwzxoGEFXSAOHEFOS9643-70-67 09:31:00 Test Item Value Reference Range Interpretation Comments Glucose Lvl (test code = Glucose Lvl) 108 70-99 [facility] CenterTbnvtmuWYNTOKBEEUNP6290-30-52 09:31:00 Test Item Value Reference Range Interpretation Comments Sodium Lvl (test code = Sodium Lvl) 138 135-145 [facility] CenterUiywvxfGQJILQZLVJJN5625-06-91 09:31:00 Test Item Value Reference Range Interpretation Comments Creatinine Lvl (test code = Creatinine 0.82 0.50-1.40 Lvl) [facility] CenterQbbjrrkLPXWUQCRFORY2571-80-74 09:31:00 Test Item Value Reference Range Interpretation Comments Potassium Lvl (test code = Potassium 4.1 3.5-5.1 Lvl) [facility]XvnjskfCNKXWEHGIQNN8228-97-67 09:31:00 Test Item Value Reference Range Interpretation Comments eGFR (test code = eGFR) 66 [facility] CenterGciccmbHSEJKTZZCTUS7951-97-77 09:31:00 Test Item Value Reference Range Interpretation Comments AGAP (test code = AGAP) 10.1 10.0-20.0 [facility] CenterRtcnfecGVIQPIJFGXCB9668-63-53 09:31:00 Test Item Value Reference Range Interpretation Comments Calcium Lvl (test code = Calcium Lvl) 8.8 8.5-10.5 [facility] CenterTvgoocySAUPBIKGNJTR4428-18-12 09:31:00 Test Item Value Reference Range Interpretation Comments CO2 (test code = CO2) 31 24-32 [facility] CenterDvekeeqTKZOJHKBNKXK7358-31-70 09:31:00 Test Item Value Reference Range Interpretation Comments Chloride Lvl (test code = Chloride Lvl) 101 95-109 [facility] CenterYltzgylUTEJSOUBSETP2840-23-34 09:31:00 Test Item Value Reference Range Interpretation Comments BUN (test code = BUN) 21 7-22 [facility] CenterRpasihnCVXBCXUESPJS2420-13-20 09:31:00 Test Item Value Reference Range Interpretation Comments Glucose Lvl (test code = Glucose Lvl) 108 70-99 [facility] CenterMujbktmNKXXHQCFKXGV7938-39-05 09:31:00 Test Item Value Reference Range Interpretation Comments Sodium Lvl (test code = Sodium Lvl) 138 135-145 [facility] CenterMoognafBCSUGPGJKUUT8976-13-36 09:31:00 Test Item Value Reference Range Interpretation Comments Creatinine Lvl (test code = Creatinine 0.82 0.50-1.40 Lvl) [facility] CenterTeoypjuKBYOLBZCTVNY0830-02-44 09:31:00 Test Item Value Reference Range Interpretation Comments Potassium Lvl (test code = Potassium 4.1 3.5-5.1 Lvl) [facility] CenterEfeoxfjKZSWRMPQHPNE8042-66-93 09:31:00 Test Item Value Reference Range Interpretation Comments eGFR (test code = eGFR) 66 [facility] CenterGekxchkJHDITPOJTLMQ3587-84-16 09:31:00 Test Item Value Reference Range Interpretation Comments AGAP (test code = AGAP) 10.1 10.0-20.0 [facility] CenterCqynthtKPGOMHBLDNUN2146-98-40 09:31:00 Test Item Value Reference Range Interpretation Comments Calcium Lvl (test code = Calcium Lvl) 8.8 8.5-10.5 [facility] CenterRnajfgfPJEKMCKBIZXG1666-05-74 09:31:00 Test Item Value Reference Range Interpretation Comments CO2 (test code = CO2) 31 -32 [facility] CenterLszxcweVMGZKRTKPARS7313-03-10 09:31:00 Test Item Value Reference Range Interpretation Comments Chloride Lvl (test code = Chloride Lvl) 101 95-109 [facility] CenterHmsmhtpAJCXJEMNFKDW8650-09-50 09:31:00 Test Item Value Reference Range Interpretation Comments BUN (test code = BUN) 04 04- [facility] CenterYuaueceBGLFRDHZFLMQ2927-01-65 09:31:00 Test Item Value Reference Range Interpretation Comments Glucose Lvl (test code = Glucose Lvl) 108 70-99 [facility] CenterPvjepsbBHSIJRGBTOEH4320-90-95 09:31:00 Test Item Value Reference Range Interpretation Comments Sodium Lvl (test code = Sodium Lvl) 138 135-145 [facility] CenterCuhxthwZXHIFFEDSEPO3631-06-37 09:31:00 Test Item Value Reference Range Interpretation Comments Creatinine Lvl (test code = Creatinine 0.82 0.50-1.40 Lvl) [facility] CenterIirhddrNEYAZFMPOBAP4026-59-39 09:31:00 Test Item Value Reference Range Interpretation Comments Potassium Lvl (test code = Potassium 4.1 3.5-5.1 Lvl) [facility] CenterAsiettrJPMVPHBEQKNF4186-06-44 09:31:00 Test Item Value Reference Range Interpretation Comments eGFR (test code = eGFR) 66 [facility] CenterIzzlialPDHZRMMWMFQU8232-63-48 09:31:00 Test Item Value Reference Range Interpretation Comments AGAP (test code = AGAP) 10.1 10.0-20.0 [facility] CenterDbwlmikDBZLHJBEGIFX2314-93-16 09:31:00 Test Item Value Reference Range Interpretation Comments Calcium Lvl (test code = Calcium Lvl) 8.8 8.5-10.5 [facility] CenterLmtkuzzZLNEBHVPYPAC7691-15-33 09:31:00 Test Item Value Reference Range Interpretation Comments CO2 (test code = CO2) 31 - [facility] CenterMrvdrbbTBEHBHVPVZGA0938-64-58 09:31:00 Test Item Value Reference Range Interpretation Comments Chloride Lvl (test code = Chloride Lvl) 101 95-109 [facility] CenterSszvqihNJWOCAMPVKOM6409-03-66 09:31:00 Test Item Value Reference Range Interpretation Comments BUN (test code = BUN) 04 04- [facility] CenterXloiawqTATDUBRVZJID8164-01-58 09:31:00 Test Item Value Reference Range Interpretation Comments Glucose Lvl (test code = Glucose Lvl) 108 70-99 [facility] CenterZbwcmzyCZDRAZSLODXE8529-96-77 09:31:00 Test Item Value Reference Range Interpretation Comments Sodium Lvl (test code = Sodium Lvl) 138 135-145 [facility] CenterOwwvfodWFZFJBOHVRAK3895-00-38 09:31:00 Test Item Value Reference Range Interpretation Comments Creatinine Lvl (test code = Creatinine 0.82 0.50-1.40 Lvl) [facility] CenterVhdhxjbTJWTVRRZGKOK7762-79-34 09:31:00 Test Item Value Reference Range Interpretation Comments Potassium Lvl (test code = Potassium 4.1 3.5-5.1 Lvl) [facility] CenterJuzckdjHAFCHDSCKVEO4036-40-39 09:31:00 Test Item Value Reference Range Interpretation Comments eGFR (test code = eGFR) 66 [facility] CenterCeuvgfmIAKXDSPGSTUS7728-11-39 09:31:00 Test Item Value Reference Range Interpretation Comments AGAP (test code = AGAP) 10.1 10.0-20.0 [facility] CenterZbsywghJDVBYHYZCDVE2148-10-97 09:31:00 Test Item Value Reference Range Interpretation Comments Calcium Lvl (test code = Calcium Lvl) 8.8 8.5-10.5 [facility] CenterVmdgkavUJWPWYJMHQOF5918-86-39 09:31:00 Test Item Value Reference Range Interpretation Comments CO2 (test code = CO2) 31 24-32 [facility] CenterPcczqxjWOJDOYXQAFKV6768-68-23 09:31:00 Test Item Value Reference Range Interpretation Comments Chloride Lvl (test code = Chloride Lvl) 101 95-109 [facility] CenterKiyhsfvJTMBGGBXHYGM9256-50-44 09:31:00 Test Item Value Reference Range Interpretation Comments BUN (test code = BUN) 21 - [facility] CenterJrculmhXNRTKJYXVEZB2219-84-36 09:31:00 Test Item Value Reference Range Interpretation Comments Glucose Lvl (test code = Glucose Lvl) 108 70-99 [facility] CenterLusewnuHKCAYWNLIEHR7985-55-58 09:31:00 Test Item Value Reference Range Interpretation Comments Sodium Lvl (test code = Sodium Lvl) 138 135-145 [facility] CenterRbtffyaBNHTUHUXQUNJ1077-81-48 09:31:00 Test Item Value Reference Range Interpretation Comments Creatinine Lvl (test code = Creatinine 0.82 0.50-1.40 Lvl) [facility] CenterRthumvdQYWETKTOBKMI5464-17-60 09:31:00 Test Item Value Reference Range Interpretation Comments Potassium Lvl (test code = Potassium 4.1 3.5-5.1 Lvl) [facility] CenterNetbcfpQGSHVEBLEKXU2483-63-75 09:31:00 Test Item Value Reference Range Interpretation Comments eGFR (test code = eGFR) 66 [facility] CenterEbwzrsfACTWFMDXFJTA2168-58-20 09:31:00 Test Item Value Reference Range Interpretation Comments AGAP (test code = AGAP) 10.1 10.0-20.0 [facility] CenterZcboldrJPLLDDGNDPYB4080-93-78 09:31:00 Test Item Value Reference Range Interpretation Comments Calcium Lvl (test code = Calcium Lvl) 8.8 8.5-10.5 [facility] CenterRvmazsjRPGCBEFWLWZQ1187-72-92 09:31:00 Test Item Value Reference Range Interpretation Comments CO2 (test code = CO2) 31 24-32 [facility] CenterSicdqesUBDRTCFWMTFM6407-26-62 09:31:00 Test Item Value Reference Range Interpretation Comments Chloride Lvl (test code = Chloride Lvl) 101 95-109 [facility] CenterDonoesiVCOLAYRJHSOY0683-20-75 09:31:00 Test Item Value Reference Range Interpretation Comments BUN (test code = BUN) 21 7-22 [facility] CenterVutzmdxFQYTTSGYSOHY3508-93-60 09:31:00 Test Item Value Reference Range Interpretation Comments Glucose Lvl (test code = Glucose Lvl) 108 70-99 [facility] CenterAitegvqOUYIZZKNURHC6709-32-07 09:31:00 Test Item Value Reference Range Interpretation Comments Sodium Lvl (test code = Sodium Lvl) 138 135-145 [facility] CenterXelogxvWOXXFAIXCBIR0984-32-43 09:31:00 Test Item Value Reference Range Interpretation Comments Creatinine Lvl (test code = Creatinine 0.82 0.50-1.40 Lvl) [facility] CenterBxeaihjDCDQYXYJMNSY7477-53-30 09:31:00 Test Item Value Reference Range Interpretation Comments Potassium Lvl (test code = Potassium 4.1 3.5-5.1 Lvl) [facility] CenterDgwuomsIYWAHMYALSZJ3300-04-45 09:31:00 Test Item Value Reference Range Interpretation Comments eGFR (test code = eGFR) 66 [facility] CenterViakxjrWHOYZDFSSERU7530-53-15 09:31:00 Test Item Value Reference Range Interpretation Comments AGAP (test code = AGAP) 10.1 10.0-20.0 [facility] CenterBhburlcCOXXLBYXOQMU4459-69-97 09:31:00 Test Item Value Reference Range Interpretation Comments Calcium Lvl (test code = Calcium Lvl) 8.8 8.5-10.5 [facility] CenterLaweuynYDTUJWJZRELS9590-52-77 09:31:00 Test Item Value Reference Range Interpretation Comments CO2 (test code = CO2) 31 24-32 [facility] CenterLuxucptUVHKLBPLJVXS9685-04-38 09:31:00 Test Item Value Reference Range Interpretation Comments Chloride Lvl (test code = Chloride Lvl) 101 95-109 [facility] CenterWyrflwnZDDOHFGVGJNH8363-49-53 09:31:00 Test Item Value Reference Range Interpretation Comments BUN (test code = BUN) 21 7- [facility] CenterDxoeqbhKXDXJLSERLEL2790-18-81 09:31:00 Test Item Value Reference Range Interpretation Comments Glucose Lvl (test code = Glucose Lvl) 108 70-99 [facility] CenterZhcvqwcTDSPUMDQIXKI2211-56-34 09:31:00 Test Item Value Reference Range Interpretation Comments Sodium Lvl (test code = Sodium Lvl) 138 135-145 [facility] CenterJkfhoslXADAUTNFUUJV1649-62-26 09:31:00 Test Item Value Reference Range Interpretation Comments Creatinine Lvl (test code = Creatinine 0.82 0.50-1.40 Lvl) [facility] CenterQhtumrcUCGOUVIIBZVP9547-62-72 09:31:00 Test Item Value Reference Range Interpretation Comments Potassium Lvl (test code = Potassium 4.1 3.5-5.1 Lvl) [facility] CenterLcrewwtWGRCPYVRUBIQ6826-38-46 09:31:00 Test Item Value Reference Range Interpretation Comments eGFR (test code = eGFR) 66 [facility] CenterDmefrwpBVJEEGTLRZFJ3814-82-00 09:31:00 Test Item Value Reference Range Interpretation Comments AGAP (test code = AGAP) 10.1 10.0-20.0 [facility] CenterGhdzrmzGFUHHEYPBVUB6282-98-59 09:31:00 Test Item Value Reference Range Interpretation Comments Calcium Lvl (test code = Calcium Lvl) 8.8 8.5-10.5 [facility] CenterWmpuofzELZXEPFHOKBU2092-06-72 09:31:00 Test Item Value Reference Range Interpretation Comments CO2 (test code = CO2) 31 24-32 [facility] CenterDbuofbrFFJPYUCPLVKP9294-31-02 09:31:00 Test Item Value Reference Range Interpretation Comments Chloride Lvl (test code = Chloride Lvl) 101 95-109 [facility] CenterChneuizMSRSDVJIFHYN3459-69-60 09:31:00 Test Item Value Reference Range Interpretation Comments BUN (test code = BUN) 04-05 [facility] CenterEpyuuxtKVJEKRWPIVVC5672-86-51 09:31:00 Test Item Value Reference Range Interpretation Comments Glucose Lvl (test code = Glucose Lvl) 108 70-99 [facility] CenterPekvpxfQAHFRBYIAEEQ0484-62-27 09:31:00 Test Item Value Reference Range Interpretation Comments Sodium Lvl (test code = Sodium Lvl) 138 135-145 [facility] CenterVsvarfmBWLTBREUMIDB9502-99-78 09:31:00 Test Item Value Reference Range Interpretation Comments Creatinine Lvl (test code = Creatinine 0.82 0.50-1.40 Lvl) [facility] CenterCzmrdecTKCUWPGKWKEM0053-83-36 09:31:00 Test Item Value Reference Range Interpretation Comments Potassium Lvl (test code = Potassium 4.1 3.5-5.1 Lvl) [facility] CenterDlfmbhuIUXUOCGBNVJS8106-92-10 09:31:00 Test Item Value Reference Range Interpretation Comments eGFR (test code = eGFR) 66 [facility] CenterEumslalWMULEGMFZJUT8946-61-15 09:31:00 Test Item Value Reference Range Interpretation Comments AGAP (test code = AGAP) 10.1 10.0-20.0 [facility] CenterAxfxwwwAIJDNWYTCMRV8245-71-08 09:31:00 Test Item Value Reference Range Interpretation Comments Calcium Lvl (test code = Calcium Lvl) 8.8 8.5-10.5 [facility] CenterAglsslxWISFOIFMDIDY7727-66-19 09:31:00 Test Item Value Reference Range Interpretation Comments CO2 (test code = CO2) 31 -32 [facility] CenterOqvyanjMDMRPLFABJQH1551-94-15 09:31:00 Test Item Value Reference Range Interpretation Comments Chloride Lvl (test code = Chloride Lvl) 101 95-109 [facility] CenterRqpmkysOHMXGPYRIOXQ6692-21-25 09:31:00 Test Item Value Reference Range Interpretation Comments BUN (test code = BUN) 04 04- [facility] CenterMfbaohoADEWCFFHSTTO9079-23-69 09:31:00 Test Item Value Reference Range Interpretation Comments Glucose Lvl (test code = Glucose Lvl) 108 70-99 [facility] CenterPzeyafeEYCBLTQCEHAM8533-24-09 09:31:00 Test Item Value Reference Range Interpretation Comments Sodium Lvl (test code = Sodium Lvl) 138 135-145 [facility] CenterCihkfugDFCYSVLLBZPC6089-60-87 09:31:00 Test Item Value Reference Range Interpretation Comments Creatinine Lvl (test code = Creatinine 0.82 0.50-1.40 Lvl) [facility] CenterFzcqczhFNPLVZBLZYRY4096-97-94 09:31:00 Test Item Value Reference Range Interpretation Comments Potassium Lvl (test code = Potassium 4.1 3.5-5.1 Lvl) [facility] CenterTkgerjdMFBJPBFMHTUP0210-12-22 09:31:00 Test Item Value Reference Range Interpretation Comments eGFR (test code = eGFR) 66 [facility] CenterYrpnmiuXWAOMFYXBCVS3960-65-37 09:31:00 Test Item Value Reference Range Interpretation Comments AGAP (test code = AGAP) 10.1 10.0-20.0 [facility] CenterPypaukoEOAWJDGSNVXG3863-49-09 09:31:00 Test Item Value Reference Range Interpretation Comments Calcium Lvl (test code = Calcium Lvl) 8.8 8.5-10.5 [facility] CenterWhkzghwFGPPQPDECOFC6964-33-09 09:31:00 Test Item Value Reference Range Interpretation Comments CO2 (test code = CO2) 31 24-32 [facility] CenterEshfclnWCKHTMUUZHME7272-82-28 09:31:00 Test Item Value Reference Range Interpretation Comments Chloride Lvl (test code = Chloride Lvl) 101 95-109 [facility] CenterMslhlozANKFSAMCLVTX9774-51-96 09:31:00 Test Item Value Reference Range Interpretation Comments BUN (test code = BUN) 21 7-22 [facility] CenterBthpthzSEOOGICIZVOR3764-56-08 09:31:00 Test Item Value Reference Range Interpretation Comments Glucose Lvl (test code = Glucose Lvl) 108 70-99 [facility] CenterKvyyqwsQIYHLYXMBAUU2347-46-65 09:31:00 Test Item Value Reference Range Interpretation Comments Sodium Lvl (test code = Sodium Lvl) 138 135-145 [facility] CenterUbrwehvKDBPVIAFZGUN0833-41-54 09:31:00 Test Item Value Reference Range Interpretation Comments Creatinine Lvl (test code = Creatinine 0.82 0.50-1.40 Lvl) [facility] CenterGmchpomQHYRJLEDTOCT7864-56-11 09:31:00 Test Item Value Reference Range Interpretation Comments Potassium Lvl (test code = Potassium 4.1 3.5-5.1 Lvl) [facility] CenterJccetzyVTHRVDLRDRZD5732-11-79 09:31:00 Test Item Value Reference Range Interpretation Comments eGFR (test code = eGFR) 66 [facility] CenterXxgahbrPWQCEKSZDBER0967-32-18 09:31:00 Test Item Value Reference Range Interpretation Comments AGAP (test code = AGAP) 10.1 10.0-20.0 [facility] CenterGkqzartTNJLURLQTJWB4955-09-65 09:31:00 Test Item Value Reference Range Interpretation Comments Calcium Lvl (test code = Calcium Lvl) 8.8 8.5-10.5 [facility] CenterAfisaztUCXOGPBKTAJC6842-13-31 09:31:00 Test Item Value Reference Range Interpretation Comments CO2 (test code = CO2) [facility] CenterMkrbpwxMFWBZZEWUTUI3665-76-66 09:31:00 Test Item Value Reference Range Interpretation Comments Chloride Lvl (test code = Chloride Lvl) 101 95-109 [facility] CenterDsuojwyNFXDVMVITQNZ9249-75-62 09:31:00 Test Item Value Reference Range Interpretation Comments AGAP (test code = AGAP) 10.1 10.0-20.0 [facility] CenterGalwwsoJEYSMWEDJFVI6471-13-93 09:31:00 Test Item Value Reference Range Interpretation Comments Calcium Lvl (test code = Calcium Lvl) 8.8 8.5-10.5 [facility] CenterUwffywzCQOJQVGIMORQ5844-71-81 09:31:00 Test Item Value Reference Range Interpretation Comments CO2 (test code = CO2) [facility] CenterGmgsprrJAEXIZZJSWWB2907-86-25 09:31:00 Test Item Value Reference Range Interpretation Comments Chloride Lvl (test code = Chloride Lvl) 101 95-109 [facility] CenterJqkzegvESIMYYXLLSHJ2261-96-66 09:31:00 Test Item Value Reference Range Interpretation Comments BUN (test code = BUN) 04-05 [facility] CenterGqwemncKILTDUFACEIK3540-65-25 09:31:00 Test Item Value Reference Range Interpretation Comments Glucose Lvl (test code = Glucose Lvl) 108 70-99 [facility] CenterDdxnajbIZZWKFPBSKNS2354-44-63 09:31:00 Test Item Value Reference Range Interpretation Comments Sodium Lvl (test code = Sodium Lvl) 138 135-145 [facility] CenterGtnoqnnVTZDGSTSPESE2800-59-28 09:31:00 Test Item Value Reference Range Interpretation Comments Creatinine Lvl (test code = Creatinine 0.82 0.50-1.40 Lvl) [facility] CenterGhqlxnxSDWSNUWNFFOW0942-37-39 09:31:00 Test Item Value Reference Range Interpretation Comments Potassium Lvl (test code = Potassium 4.1 3.5-5.1 Lvl) [facility] CenterJlgcaosSLEHOSILHODQ5336-71-04 09:31:00 Test Item Value Reference Range Interpretation Comments eGFR (test code = eGFR) 66 [facility] CenterSnhhdsrKJDZXCXOSLKE0410-53-60 09:31:00 Test Item Value Reference Range Interpretation Comments BUN (test code = BUN) 04-05 [facility] CenterQqcyzwdUTCDJODBARIF7812-12-95 09:31:00 Test Item Value Reference Range Interpretation Comments Glucose Lvl (test code = Glucose Lvl) 108 70-99 [facility] CenterJzhkiwwWHPBCGFOUCAP5280-24-39 09:31:00 Test Item Value Reference Range Interpretation Comments Sodium Lvl (test code = Sodium Lvl) 138 135-145 [facility] CenterXwvrfycDQTYQFWYIQRN6753-51-01 09:31:00 Test Item Value Reference Range Interpretation Comments Creatinine Lvl (test code = Creatinine 0.82 0.50-1.40 Lvl) [facility] CenterIbtaopfFUJVHEPWHVPU3111-39-06 09:31:00 Test Item Value Reference Range Interpretation Comments Potassium Lvl (test code = Potassium 4.1 3.5-5.1 Lvl) [facility] CenterYvqhnppUBZQTQOFBVMY8348-92-35 09:31:00 Test Item Value Reference Range Interpretation Comments eGFR (test code = eGFR) 66 [facility] CenterEeawvizEIQVKJGIDOFG0622-28-60 09:31:00 Test Item Value Reference Range Interpretation Comments AGAP (test code = AGAP) 10.1 10.0-20.0 [facility] CenterRobqdmfTUWTDOQDDFXP7131-62-59 09:31:00 Test Item Value Reference Range Interpretation Comments Calcium Lvl (test code = Calcium Lvl) 8.8 8.5-10.5 [facility] CenterBtuhuyeNMHBFPSEDYWA0853-17-28 09:31:00 Test Item Value Reference Range Interpretation Comments CO2 (test code = CO2) -32 [facility] CenterWjorokjCPNLJWRACHMW3804-71-39 09:31:00 Test Item Value Reference Range Interpretation Comments Chloride Lvl (test code = Chloride Lvl) 101 95-109 [facility] CenterCioqrfrSDHYQKBIMNHG4038-31-19 09:31:00 Test Item Value Reference Range Interpretation Comments BUN (test code = BUN) 04-05 [facility] CenterMuqhydjMWHRRIFORWMJ1144-43-32 09:31:00 Test Item Value Reference Range Interpretation Comments Glucose Lvl (test code = Glucose Lvl) 108 70-99 [facility] CenterRckpmjhCJFRAOGJQUVQ8946-38-18 09:31:00 Test Item Value Reference Range Interpretation Comments Sodium Lvl (test code = Sodium Lvl) 138 135-145 [facility] CenterSiqehqgMNIYBFMPUXXX7262-01-59 09:31:00 Test Item Value Reference Range Interpretation Comments Creatinine Lvl (test code = Creatinine 0.82 0.50-1.40 Lvl) [facility] CenterPocjnmwOGVFQSVJURUH8471-81-86 09:31:00 Test Item Value Reference Range Interpretation Comments Potassium Lvl (test code = Potassium 4.1 3.5-5.1 Lvl) [facility] CenterKqdswhdJTHRIASLNQYN9209-75-63 09:31:00 Test Item Value Reference Range Interpretation Comments eGFR (test code = eGFR) 66 [facility] CenterElebxkaLXXCDPBMWXWX2537-01-70 09:31:00 Test Item Value Reference Range Interpretation Comments AGAP (test code = AGAP) 10.1 10.0-20.0 [facility] CenterRqomcidKOTQBYYTZLEY1478-48-42 09:31:00 Test Item Value Reference Range Interpretation Comments Calcium Lvl (test code = Calcium Lvl) 8.8 8.5-10.5 [facility] CenterBegvxpmKAUUMEXKKKYX5760-37-23 09:31:00 Test Item Value Reference Range Interpretation Comments CO2 (test code = CO2) 31 - [facility] CenterKbxhgavULEMHERGEQIX2264-82-49 09:31:00 Test Item Value Reference Range Interpretation Comments Chloride Lvl (test code = Chloride Lvl) 101 95-109 [facility] CenterUaurbriWUHMTMTBGTNN7000-09-81 09:31:00 Test Item Value Reference Range Interpretation Comments BUN (test code = BUN) 04-05 [facility] CenterCtjppviOAXHUUTYEAJE7593-31-25 09:31:00 Test Item Value Reference Range Interpretation Comments Glucose Lvl (test code = Glucose Lvl) 108 70-99 [facility] CenterHjivqlnPRGUTULSXPGS8747-82-00 09:31:00 Test Item Value Reference Range Interpretation Comments Sodium Lvl (test code = Sodium Lvl) 138 135-145 [facility] CenterAoeiislCGTIAZDTZPGW5617-92-78 09:31:00 Test Item Value Reference Range Interpretation Comments Creatinine Lvl (test code = Creatinine 0.82 0.50-1.40 Lvl) [facility]ZzpzbasYPUIRFVDFDUD4321-78-38 09:31:00 Test Item Value Reference Range Interpretation Comments Potassium Lvl (test code = Potassium 4.1 3.5-5.1 Lvl) [facility] CenterGpbfonwONVTOUVBEVMT2037-86-61 09:31:00 Test Item Value Reference Range Interpretation Comments eGFR (test code = eGFR) 66 [facility] CenterTsvrndsDMVPFHOOFWZF3075-14-73 09:31:00 Test Item Value Reference Range Interpretation Comments AGAP (test code = AGAP) 10.1 10.0-20.0 [facility] CenterBitwsgxVHCNUMLTMOYL7473-82-03 09:31:00 Test Item Value Reference Range Interpretation Comments Calcium Lvl (test code = Calcium Lvl) 8.8 8.5-10.5 [facility] CenterHfxzuuhNSHIPLGUMUWJ5392-70-77 09:31:00 Test Item Value Reference Range Interpretation Comments CO2 (test code = CO2) 31 24-32 [facility] CenterBhrvxsqFNJPOPJZKOAC2589-92-64 09:31:00 Test Item Value Reference Range Interpretation Comments Chloride Lvl (test code = Chloride Lvl) 101 95-109 [facility] CenterNmwjhqwFWFKNTACOYJZ6296-31-46 09:31:00 Test Item Value Reference Range Interpretation Comments BUN (test code = BUN) 21 7-22 [facility]YlbbnklRRIDOCSJECTM3122-23-97 09:31:00 Test Item Value Reference Range Interpretation Comments Glucose Lvl (test code = Glucose Lvl) 108 70-99 [facility] CenterLcaucucIFNFGAHQPQDO8667-04-10 09:31:00 Test Item Value Reference Range Interpretation Comments Sodium Lvl (test code = Sodium Lvl) 138 135-145 [facility] CenterLylizssDTTQZASSJXRH4117-74-12 09:31:00 Test Item Value Reference Range Interpretation Comments Creatinine Lvl (test code = Creatinine 0.82 0.50-1.40 Lvl) [facility] CenterPkshxmfUANXHYNMWKDC1755-90-05 09:31:00 Test Item Value Reference Range Interpretation Comments Potassium Lvl (test code = Potassium 4.1 3.5-5.1 Lvl) [facility] CenterNmqhepvIRRADBZLABKH3583-74-69 09:31:00 Test Item Value Reference Range Interpretation Comments eGFR (test code = eGFR) 66 [facility] CenterOjxpclwWUOSHPQMWGZW0454-09-24 09:31:00 Test Item Value Reference Range Interpretation Comments AGAP (test code = AGAP) 10.1 10.0-20.0 [facility] CenterAuqdwieXHSYOTLDKBUM8571-25-19 09:31:00 Test Item Value Reference Range Interpretation Comments Calcium Lvl (test code = Calcium Lvl) 8.8 8.5-10.5 [facility] CenterEbbyfmdPITUEVBPFDHK5740-37-55 09:31:00 Test Item Value Reference Range Interpretation Comments CO2 (test code = CO2) 31 24-32 [facility] CenterVwvmvcvXKPLZFATVSGJ1132-37-34 09:31:00 Test Item Value Reference Range Interpretation Comments Chloride Lvl (test code = Chloride Lvl) 101 95-109 [facility] CenterUvrxufxAANHOJQAQRPX0230-48-14 09:31:00 Test Item Value Reference Range Interpretation Comments BUN (test code = BUN) 21 7-22 [facility] CenterHqnwgayLVHGGMUONKBE5551-77-98 09:31:00 Test Item Value Reference Range Interpretation Comments Glucose Lvl (test code = Glucose Lvl) 108 70-99 [facility] CenterLpspwyfFZOCEETJFNFZ7478-84-93 09:31:00 Test Item Value Reference Range Interpretation Comments Sodium Lvl (test code = Sodium Lvl) 138 135-145 [facility] CenterMwcxkcaAERFZUJJZMVU8478-72-92 09:31:00 Test Item Value Reference Range Interpretation Comments Creatinine Lvl (test code = Creatinine 0.82 0.50-1.40 Lvl) [facility] CenterCxjvtnsAWCCFIGGLGMK0730-84-08 09:31:00 Test Item Value Reference Range Interpretation Comments Potassium Lvl (test code = Potassium 4.1 3.5-5.1 Lvl) [facility] CenterSzzoevnZRALPIBCCSTS6411-82-20 09:31:00 Test Item Value Reference Range Interpretation Comments eGFR (test code = eGFR) 66 [facility] CenterSwchzyzONSPGJDMYDLX9363-86-28 09:31:00 Test Item Value Reference Range Interpretation Comments AGAP (test code = AGAP) 10.1 10.0-20.0 [facility] CenterFeeekdqSRFNUVPWPWLX4234-49-39 09:31:00 Test Item Value Reference Range Interpretation Comments Calcium Lvl (test code = Calcium Lvl) 8.8 8.5-10.5 [facility] CenterSvfwnmeMIDDTFXWUEIE5963-78-24 09:31:00 Test Item Value Reference Range Interpretation Comments CO2 (test code = CO2) 31 -32 [facility] CenterJotvjjrIOKDSNFPODJV8976-36-35 09:31:00 Test Item Value Reference Range Interpretation Comments Chloride Lvl (test code = Chloride Lvl) 101 95-109 [facility] CenterQqeyaygCSBICXKPQXAA9680-04-97 09:31:00 Test Item Value Reference Range Interpretation Comments BUN (test code = BUN) 21 7-22 [facility] CenterAlklanuGYKYVOAHHXYC1100-90-96 09:31:00 Test Item Value Reference Range Interpretation Comments Glucose Lvl (test code = Glucose Lvl) 108 70-99 [facility] CenterTsmydpfSHIXOJOWEWPE5972-23-10 09:31:00 Test Item Value Reference Range Interpretation Comments Sodium Lvl (test code = Sodium Lvl) 138 135-145 [facility] CenterVymhhkzKCRLNSYBLLZY2953-25-41 09:31:00 Test Item Value Reference Range Interpretation Comments Creatinine Lvl (test code = Creatinine 0.82 0.50-1.40 Lvl) [facility] CenterVvfmzejKCNNZUOZYUKE9112-08-80 09:31:00 Test Item Value Reference Range Interpretation Comments Potassium Lvl (test code = Potassium 4.1 3.5-5.1 Lvl) [facility] CenterPutxuqgRKIAXCDAXCRC9788-17-26 09:31:00 Test Item Value Reference Range Interpretation Comments eGFR (test code = eGFR) 66 [facility] CenterDidcymoCCYSUDDCJFFS5867-30-94 09:31:00 Test Item Value Reference Range Interpretation Comments AGAP (test code = AGAP) 10.1 10.0-20.0 [facility] CenterCmwocitGEEWEUYPSRHX4595-58-42 09:31:00 Test Item Value Reference Range Interpretation Comments Calcium Lvl (test code = Calcium Lvl) 8.8 8.5-10.5 [facility] CenterOhiphgdUDFZMBNMNNMI6283-03-91 09:31:00 Test Item Value Reference Range Interpretation Comments CO2 (test code = CO2) 31 24-32 [facility] CenterUpwlcdkRNNCPCYJNJTD8126-74-32 09:31:00 Test Item Value Reference Range Interpretation Comments Chloride Lvl (test code = Chloride Lvl) 101 95-109 [facility] CenterQvhvjzxCUGZECCDKTBE6073-05-99 09:31:00 Test Item Value Reference Range Interpretation Comments BUN (test code = BUN) 04-05 [facility] CenterOomnudmQBGVOHPKYOML2863-50-89 09:31:00 Test Item Value Reference Range Interpretation Comments Glucose Lvl (test code = Glucose Lvl) 108 70-99 [facility] CenterZjaxghnIHUQSZBVPQGV3516-81-04 09:31:00 Test Item Value Reference Range Interpretation Comments Sodium Lvl (test code = Sodium Lvl) 138 135-145 [facility] CenterNzpcavvGGPBYYQAQOIY2368-16-57 09:31:00 Test Item Value Reference Range Interpretation Comments Creatinine Lvl (test code = Creatinine 0.82 0.50-1.40 Lvl) [facility] CenterGychnebBXTATPNJLFTX8202-36-02 09:31:00 Test Item Value Reference Range Interpretation Comments Potassium Lvl (test code = Potassium 4.1 3.5-5.1 Lvl) [facility] CenterTontatyIEAMQOXWURNE3771-82-17 09:31:00 Test Item Value Reference Range Interpretation Comments eGFR (test code = eGFR) 66 [facility] CenterIiryhbdYGPUXIUGSEHT1718-32-21 09:31:00 Test Item Value Reference Range Interpretation Comments AGAP (test code = AGAP) 10.1 10.0-20.0 [facility]PxgidpbXOWKHHNIUDIO0610-64-41 09:31:00 Test Item Value Reference Range Interpretation Comments Calcium Lvl (test code = Calcium Lvl) 8.8 8.5-10.5 [facility] CenterTmvagdtAZNFNJCKESPI5088-68-52 09:31:00 Test Item Value Reference Range Interpretation Comments CO2 (test code = CO2) 31 -32 [facility] CenterLggrnuwSVJOVQHDHSFG1071-03-82 09:31:00 Test Item Value Reference Range Interpretation Comments Chloride Lvl (test code = Chloride Lvl) 101 95-109 [facility] CenterWyofywjIRGFGRKWCNMV8069-77-37 09:31:00 Test Item Value Reference Range Interpretation Comments BUN (test code = BUN) 04-05 [facility] CenterFptdgurWMNIPIERSZAK4116-35-53 09:31:00 Test Item Value Reference Range Interpretation Comments Glucose Lvl (test code = Glucose Lvl) 108 70-99 [facility] CenterYvnwabdADJUHZZKWGLT8272-15-68 09:31:00 Test Item Value Reference Range Interpretation Comments Sodium Lvl (test code = Sodium Lvl) 138 135-145 [facility] CenterVvywtqiEXRTASJPJOHM5703-79-15 09:31:00 Test Item Value Reference Range Interpretation Comments Creatinine Lvl (test code = Creatinine 0.82 0.50-1.40 Lvl) [facility] CenterQauqtvvDYTSZZJHALQG2118-33-15 09:31:00 Test Item Value Reference Range Interpretation Comments Potassium Lvl (test code = Potassium 4.1 3.5-5.1 Lvl) [facility] CenterHcqtrgjYFQWEGQLHYMV7553-41-04 09:31:00 Test Item Value Reference Range Interpretation Comments eGFR (test code = eGFR) 66 [facility] CenterThhbakoFVBAJJQTNZFD8825-09-77 09:31:00 Test Item Value Reference Range Interpretation Comments AGAP (test code = AGAP) 10.1 10.0-20.0 [facility] CenterBjwivfjXZMCAZVVIFZW6310-79-13 09:31:00 Test Item Value Reference Range Interpretation Comments Calcium Lvl (test code = Calcium Lvl) 8.8 8.5-10.5 [facility] CenterFmkocwbIPQFKIURNCBB2866-43-51 09:31:00 Test Item Value Reference Range Interpretation Comments CO2 (test code = CO2) 31 24-32 [facility] CenterZqmsyixQQHZXFTPSHYI8140-05-34 09:31:00 Test Item Value Reference Range Interpretation Comments Chloride Lvl (test code = Chloride Lvl) 101 95-109 [facility] CenterQjniijsCSQZTRYTZUEI2069-93-46 09:31:00 Test Item Value Reference Range Interpretation Comments BUN (test code = BUN) 21 7-22 [facility] CenterTrcllvzLWLYFFXENDYF2656-35-28 09:31:00 Test Item Value Reference Range Interpretation Comments Glucose Lvl (test code = Glucose Lvl) 108 70-99 [facility] CenterBjjbhdrYKNUCQASMJSY2565-59-35 09:31:00 Test Item Value Reference Range Interpretation Comments Sodium Lvl (test code = Sodium Lvl) 138 135-145 [facility] CenterHncaabyGYMFUNMKCRKQ3377-26-56 09:31:00 Test Item Value Reference Range Interpretation Comments Creatinine Lvl (test code = Creatinine 0.82 0.50-1.40 Lvl) [facility] CenterFhizpkyUHQDRVUMIXXA0736-22-42 09:31:00 Test Item Value Reference Range Interpretation Comments Potassium Lvl (test code = Potassium 4.1 3.5-5.1 Lvl) [facility] CenterKdvpqkiKTNWSCPCJHWC8434-02-59 09:31:00 Test Item Value Reference Range Interpretation Comments eGFR (test code = eGFR) 66 [facility] CenterVognieiLTOVULISKMNY3430-39-67 09:31:00 Test Item Value Reference Range Interpretation Comments AGAP (test code = AGAP) 10.1 10.0-20.0 [facility] CenterMcywnhdEHJOPPPNNRYE1081-98-10 09:31:00 Test Item Value Reference Range Interpretation Comments Calcium Lvl (test code = Calcium Lvl) 8.8 8.5-10.5 [facility] CenterUfddbbzUDUQPPYKQKQK7408-44-65 09:31:00 Test Item Value Reference Range Interpretation Comments CO2 (test code = CO2) 31 24-32 [facility] CenterOouoymuWQWRDWQYTIWW2463-39-78 09:31:00 Test Item Value Reference Range Interpretation Comments Chloride Lvl (test code = Chloride Lvl) 101 95-109 [facility] CenterMqccmatQBOWMUGCKANM3831-04-18 09:31:00 Test Item Value Reference Range Interpretation Comments BUN (test code = BUN) 21 7-22 [facility] CenterNraqfyoPUZUOXRGLDOQ4620-45-40 09:31:00 Test Item Value Reference Range Interpretation Comments Glucose Lvl (test code = Glucose Lvl) 108 70-99 [facility] CenterFkmvxrwHACYHCKDPUDS1702-88-00 09:31:00 Test Item Value Reference Range Interpretation Comments Sodium Lvl (test code = Sodium Lvl) 138 135-145 [facility] CenterWavugtwWKLNTXAYNGUN2334-72-57 09:31:00 Test Item Value Reference Range Interpretation Comments Creatinine Lvl (test code = Creatinine 0.82 0.50-1.40 Lvl) [facility] CenterTmnremqKHFKIFAPWQKN3077-39-49 09:31:00 Test Item Value Reference Range Interpretation Comments Potassium Lvl (test code = Potassium 4.1 3.5-5.1 Lvl) [facility] CenterTgevarjOWYLIRKOIGCT7478-34-15 09:31:00 Test Item Value Reference Range Interpretation Comments eGFR (test code = eGFR) 66 [facility] CenterCwnvpnwHKUQUDYZQGIJ7065-56-98 09:31:00 Test Item Value Reference Range Interpretation Comments AGAP (test code = AGAP) 10.1 10.0-20.0 [facility] CenterIqxwglmKOGLBUYICSSA5273-46-37 09:31:00 Test Item Value Reference Range Interpretation Comments Calcium Lvl (test code = Calcium Lvl) 8.8 8.5-10.5 [facility] CenterQmmyxwmNZIPFJGXEBAO8824-08-13 09:31:00 Test Item Value Reference Range Interpretation Comments CO2 (test code = CO2) 31 -32 [facility] CenterMpdajibYFIAHOHDEEXW7632-34-09 09:31:00 Test Item Value Reference Range Interpretation Comments Chloride Lvl (test code = Chloride Lvl) 101 95-109 [facility] CenterEmaqcisJTFBKWQUCKXI0891-08-19 09:31:00 Test Item Value Reference Range Interpretation Comments BUN (test code = BUN) 21 7-22 [facility] CenterDkatcmcAMOCSOEVHWZR7509-47-75 09:31:00 Test Item Value Reference Range Interpretation Comments Glucose Lvl (test code = Glucose Lvl) 108 70-99 [facility] CenterHfwbemlWYVBJARLVPGI5642-04-76 09:31:00 Test Item Value Reference Range Interpretation Comments Sodium Lvl (test code = Sodium Lvl) 138 135-145 [facility] CenterNkdjulkTRRZUHSTWGYY3526-33-87 09:31:00 Test Item Value Reference Range Interpretation Comments Creatinine Lvl (test code = Creatinine 0.82 0.50-1.40 Lvl) [facility] CenterNvimdsxQCRYMUDZRILS2916-23-68 09:31:00 Test Item Value Reference Range Interpretation Comments Potassium Lvl (test code = Potassium 4.1 3.5-5.1 Lvl) [facility] CenterZdkzkgzXVIGATJNNTOY5586-59-52 09:31:00 Test Item Value Reference Range Interpretation Comments eGFR (test code = eGFR) 66 [facility] CenterFqilyfrKYDPZTFSIYYZ4408-76-85 09:31:00 Test Item Value Reference Range Interpretation Comments AGAP (test code = AGAP) 10.1 10.0-20.0 [facility] CenterRdwlcbiPVUKDKGAWLRE6378-13-15 09:31:00 Test Item Value Reference Range Interpretation Comments Calcium Lvl (test code = Calcium Lvl) 8.8 8.5-10.5 [facility] CenterDypxbpnGSGPPIGNJIKE6981-81-89 09:31:00 Test Item Value Reference Range Interpretation Comments CO2 (test code = CO2) 31 24-32 [facility] CenterPuegunrPNUAAQYBARAF5878-23-54 09:31:00 Test Item Value Reference Range Interpretation Comments Chloride Lvl (test code = Chloride Lvl) 101 95-109 [facility] CenterBdtlhmzVYFMSHLRDNND1641-63-29 09:31:00 Test Item Value Reference Range Interpretation Comments BUN (test code = BUN) 04 04- [facility] CenterVplvpqoWKLSACXZKXVF5359-55-72 09:31:00 Test Item Value Reference Range Interpretation Comments Glucose Lvl (test code = Glucose Lvl) 108 70-99 [facility] CenterKiwjjrsOENLDJMPAMCJ2398-44-07 09:31:00 Test Item Value Reference Range Interpretation Comments Sodium Lvl (test code = Sodium Lvl) 138 135-145 [facility] CenterZdofntmOKHKWAVBKXHL9189-85-76 09:31:00 Test Item Value Reference Range Interpretation Comments Creatinine Lvl (test code = Creatinine 0.82 0.50-1.40 Lvl) [facility] CenterWiptjfvBTONCSXETSBL2458-91-06 09:31:00 Test Item Value Reference Range Interpretation Comments Potassium Lvl (test code = Potassium 4.1 3.5-5.1 Lvl) [facility] CenterCyvkmraOCZQBJJWFUQN4944-66-97 09:31:00 Test Item Value Reference Range Interpretation Comments eGFR (test code = eGFR) 66 [facility] CenterJqrcjgiEADDMKWOJICI0761-65-36 09:31:00 Test Item Value Reference Range Interpretation Comments AGAP (test code = AGAP) 10.1 10.0-20.0 [facility] CenterAknntceSDITPWRJVIQV3595-40-37 09:31:00 Test Item Value Reference Range Interpretation Comments Calcium Lvl (test code = Calcium Lvl) 8.8 8.5-10.5 [facility] CenterNzzdmfkAPAADMYSTGDQ4502-80-16 09:31:00 Test Item Value Reference Range Interpretation Comments CO2 (test code = CO2) 31 24-32 [facility] CenterOglvxbaOZDREXHINRPB9246-00-07 09:31:00 Test Item Value Reference Range Interpretation Comments Chloride Lvl (test code = Chloride Lvl) 101 95-109 [facility] CenterQzthvplVLOSNKDYUUIO7855-09-12 09:31:00 Test Item Value Reference Range Interpretation Comments BUN (test code = BUN) 04 04- [facility] CenterZwzxkfnRPSARHHPTOXR3504-69-39 09:31:00 Test Item Value Reference Range Interpretation Comments Glucose Lvl (test code = Glucose Lvl) 108 70-99 [facility] CenterSqkvoitQJIKPSWQUIZQ3240-19-32 09:31:00 Test Item Value Reference Range Interpretation Comments Sodium Lvl (test code = Sodium Lvl) 138 135-145 [facility] CenterAtegmdxWHBGQVYXHNYE3911-93-22 09:31:00 Test Item Value Reference Range Interpretation Comments Creatinine Lvl (test code = Creatinine 0.82 0.50-1.40 Lvl) [facility] CenterWpvfbmzVAQDXCZFLZFX1157-92-70 09:31:00 Test Item Value Reference Range Interpretation Comments Potassium Lvl (test code = Potassium 4.1 3.5-5.1 Lvl) [facility] CenterInsfucbEVSHPTCFIJNB6164-94-04 09:31:00 Test Item Value Reference Range Interpretation Comments eGFR (test code = eGFR) 66 [facility] CenterGatavwzISUVXRDBCXTA7463-63-86 09:31:00 Test Item Value Reference Range Interpretation Comments AGAP (test code = AGAP) 10.1 10.0-20.0 [facility] CenterOhqidwlJBNDEONLQHWA2744-96-40 09:31:00 Test Item Value Reference Range Interpretation Comments Calcium Lvl (test code = Calcium Lvl) 8.8 8.5-10.5 [facility] CenterLswanduUEZXEVUSLMME4227-68-46 09:31:00 Test Item Value Reference Range Interpretation Comments CO2 (test code = CO2) 31 24-32 [facility] CenterLmudzylCJCSDBFJRMAI1888-89-10 09:31:00 Test Item Value Reference Range Interpretation Comments Chloride Lvl (test code = Chloride Lvl) 101 95-109 [facility] CenterZuqsimnDYJLPNFCLQDR6936-22-05 09:31:00 Test Item Value Reference Range Interpretation Comments BUN (test code = BUN) 21 7-22 [facility] CenterJwaxwdpAXGRZQTVYAKU0296-95-08 09:31:00 Test Item Value Reference Range Interpretation Comments Glucose Lvl (test code = Glucose Lvl) 108 70-99 [facility] CenterDfondqcMAQHHDJKQXQR2293-58-60 09:31:00 Test Item Value Reference Range Interpretation Comments Sodium Lvl (test code = Sodium Lvl) 138 135-145 [facility] CenterEnvtytiAFESHOHLMDMA8916-45-50 09:31:00 Test Item Value Reference Range Interpretation Comments Creatinine Lvl (test code = Creatinine 0.82 0.50-1.40 Lvl) [facility] CenterIursmjdYQBIRPAKUGUQ2927-24-02 09:31:00 Test Item Value Reference Range Interpretation Comments Potassium Lvl (test code = Potassium 4.1 3.5-5.1 Lvl) [facility] CenterGbyemlxWIXBPUAYKFEU6192-27-01 09:31:00 Test Item Value Reference Range Interpretation Comments eGFR (test code = eGFR) 66 [facility] CenterKzurwbnMHQGCXPBCQFD7050-67-84 09:31:00 Test Item Value Reference Range Interpretation Comments AGAP (test code = AGAP) 10.1 10.0-20.0 [facility] CenterZzcwdfsTZGJWVADKDJQ2222-13-30 09:31:00 Test Item Value Reference Range Interpretation Comments Calcium Lvl (test code = Calcium Lvl) 8.8 8.5-10.5 [facility] CenterEzfbghyROYYHVYYTVES9742-08-49 09:31:00 Test Item Value Reference Range Interpretation Comments CO2 (test code = CO2) - [facility] CenterStekipgHLGWMWPNTXKC6650-91-05 09:31:00 Test Item Value Reference Range Interpretation Comments Chloride Lvl (test code = Chloride Lvl) 101 95-109 [facility] CenterIsmgweqAIACTVIDJCGJ1374-71-93 09:31:00 Test Item Value Reference Range Interpretation Comments AGAP (test code = AGAP) 10.1 10.0-20.0 [facility] CenterCsfazebKROXJSWPRZQY5024-63-33 09:31:00 Test Item Value Reference Range Interpretation Comments Calcium Lvl (test code = Calcium Lvl) 8.8 8.5-10.5 [facility] CenterSrcovrfGYSRNZRRPGRL2878-73-82 09:31:00 Test Item Value Reference Range Interpretation Comments CO2 (test code = CO2) - [facility] CenterOfmrywzYULGYCKIZVKO1913-23-79 09:31:00 Test Item Value Reference Range Interpretation Comments Chloride Lvl (test code = Chloride Lvl) 101 95-109 [facility] CenterQsjmckdMSMVNPEBRVMS4453-96-04 09:31:00 Test Item Value Reference Range Interpretation Comments BUN (test code = BUN) 21 7-22 [facility] CenterYayjkxqSXGJDCRABJGN9965-04-10 09:31:00 Test Item Value Reference Range Interpretation Comments Glucose Lvl (test code = Glucose Lvl) 108 70-99 [facility] CenterVtxssxhENIHGXINDUSC6077-84-01 09:31:00 Test Item Value Reference Range Interpretation Comments Sodium Lvl (test code = Sodium Lvl) 138 135-145 [facility] CenterBfcatdxZKPSFETRIZOL6300-56-44 09:31:00 Test Item Value Reference Range Interpretation Comments Creatinine Lvl (test code = Creatinine 0.82 0.50-1.40 Lvl) [facility] CenterXfnkcscSSBGXIHEVTZP8423-27-68 09:31:00 Test Item Value Reference Range Interpretation Comments Potassium Lvl (test code = Potassium 4.1 3.5-5.1 Lvl) [facility] CenterYfwpgoySANSIIPHRMHJ1435-46-54 09:31:00 Test Item Value Reference Range Interpretation Comments eGFR (test code = eGFR) 66 [facility] CenterXnkvikkPZUOPMOZXZCZ9959-11-70 09:31:00 Test Item Value Reference Range Interpretation Comments BUN (test code = BUN) 21 7-22 [facility] CenterYsvyqlzSWFFJRYWZDTI7335-88-62 09:31:00 Test Item Value Reference Range Interpretation Comments Glucose Lvl (test code = Glucose Lvl) 108 70-99 [facility] CenterUxzqjdaORCHVWWHOFQW0634-12-22 09:31:00 Test Item Value Reference Range Interpretation Comments Sodium Lvl (test code = Sodium Lvl) 138 135-145 [facility] CenterFsvxmaxYBWDMMKPYFKI6257-75-80 09:31:00 Test Item Value Reference Range Interpretation Comments Creatinine Lvl (test code = Creatinine 0.82 0.50-1.40 Lvl) [facility] CenterCkssipiRFOKYUJYJQYP1789-76-49 09:31:00 Test Item Value Reference Range Interpretation Comments Potassium Lvl (test code = Potassium 4.1 3.5-5.1 Lvl) [facility] CenterQpkquelPFTDIKCXNTIB9551-39-06 09:31:00 Test Item Value Reference Range Interpretation Comments eGFR (test code = eGFR) 66 [facility] CenterBeeiotiQPWAOAJYWEEM2938-28-74 09:50:00 Test Item Value Reference Range Interpretation Comments CO2 (test code = CO2) 32 24-32 [facility] CenterXfkuovhQJYLTDCMZEMW6304-51-64 09:50:00 Test Item Value Reference Range Interpretation Comments Chloride Lvl (test code = Chloride Lvl) 99 95-109 [facility] CenterMxvytvtMRGWFCFYYZQZ2478-27-72 09:50:00 Test Item Value Reference Range Interpretation Comments Potassium Lvl (test code = Potassium 3.5 3.5-5.1 Lvl) [facility] CenterOvhjnopVXPMYONXKCIB4791-96-87 09:50:00 Test Item Value Reference Range Interpretation Comments eGFR (test code = eGFR) 66 [facility] CenterAvyddnxUXQMQJYFRVIP2074-25-59 09:50:00 Test Item Value Reference Range Interpretation Comments Calcium Lvl (test code = Calcium Lvl) 8.9 8.5-10.5 [facility] CenterRahtllsPWPOPQOCMLMN5425-95-57 09:50:00 Test Item Value Reference Range Interpretation Comments BUN (test code = BUN) 18 7-22 [facility] CenterOtxnpynWBVSTMQGZURD9485-02-98 09:50:00 Test Item Value Reference Range Interpretation Comments Sodium Lvl (test code = Sodium Lvl) 138 135-145 [facility] CenterFnilfxyUWEPBHWUIFOC8446-66-09 09:50:00 Test Item Value Reference Range Interpretation Comments Creatinine Lvl (test code = Creatinine 0.82 0.50-1.40 Lvl) [facility] CenterJdfxmyeEZJINEBVOPOC0992-49-13 09:50:00 Test Item Value Reference Range Interpretation Comments Glucose Lvl (test code = Glucose Lvl) 99 70-99 [facility] CenterMjeexraHHTSEZYTSRMM0764-62-49 09:50:00 Test Item Value Reference Range Interpretation Comments AGAP (test code = AGAP) 10.5 10.0-20.0 [facility]RHJKMJODTO0586-55-43 09:50:00 Test Item Value Reference Range Interpretation Comments RBC (test code = RBC) 3.56 4.20-5.40 [facility]XldoojwDCWHEAUTAP1136-49-79 09:50:00 Test Item Value Reference Range Interpretation Comments WBC (test code = WBC) 8.1 3.7-10.4 [facility]QcumvfbVHDMURKTZN1128-59-50 09:50:00 Test Item Value Reference Range Interpretation Comments Hct (test code = Hct) 33.2 36.0-48.0 [facility]KtqstksBEIZJQHAHE0406-02-23 09:50:00 Test Item Value Reference Range Interpretation Comments Hgb (test code = Hgb) 10.9 12.0-16.0 [facility]OoqsxfjJCENYEZXKW6189-39-83 09:50:00 Test Item Value Reference Range Interpretation Comments MCH (test code = MCH) 30.5 pg 27.0-31.0 [facility]MwqewzkXCMNFFELFQ0333-54-02 09:50:00 Test Item Value Reference Range Interpretation Comments MCV (test code = MCV) 93.3 80.0-98.0 [facility]NrcbowzPIUWVDZTUC1212-56-09 09:50:00 Test Item Value Reference Range Interpretation Comments MCHC (test code = MCHC) 32.7 32.0-36.0 [facility]EfyjqneBJUKQCFQOQ8764-17-53 09:50:00 Test Item Value Reference Range Interpretation Comments Platelet (test code = Platelet) 415 133-450 [facility] NortheastUbgcshuXVQCMUSURQ3334-01-97 09:50:00 Test Item Value Reference Range Interpretation Comments MPV (test code = MPV) 7.1 7.4-10.4 [facility] NortheastHlocxllAPALMYZBML3754-54-38 09:50:00 Test Item Value Reference Range Interpretation Comments RDW (test code = RDW) 15.3 11.5-14.5 [facility]YjueqakEAVGWWOTIQCB6025-58-16 09:50:00 Test Item Value Reference Range Interpretation Comments CO2 (test code = CO2) 32 24-32 [facility] CenterPlnhqvyUMIJFBNWTLWQ8344-88-49 09:50:00 Test Item Value Reference Range Interpretation Comments Chloride Lvl (test code = Chloride Lvl) 99 95-109 [facility] [facility]TpqlbnqDNHTBPVAUTLU9862-95-02 09:50:00 Test Item Value Reference Range Interpretation Comments Potassium Lvl (test code = Potassium 3.5 3.5-5.1 Lvl) [facility] CenterSdvofuuVVHCAEXMCRND1300-39-39 09:50:00 Test Item Value Reference Range Interpretation Comments eGFR (test code = eGFR) 66 [facility] CenterOhdspqrETJCMVTTBSXL0335-17-74 09:50:00 Test Item Value Reference Range Interpretation Comments Calcium Lvl (test code = Calcium Lvl) 8.9 8.5-10.5 [facility] CenterOobmjdsOZYPQWDRYGJF2012-34-56 09:50:00 Test Item Value Reference Range Interpretation Comments BUN (test code = BUN) 18 7-22 [facility] CenterFknqnypYDSWRZQLCYJF6279-14-43 09:50:00 Test Item Value Reference Range Interpretation Comments Sodium Lvl (test code = Sodium Lvl) 138 135-145 [facility] CenterKyuoabwEWGBDDRCOKEB1106-01-19 09:50:00 Test Item Value Reference Range Interpretation Comments Creatinine Lvl (test code = Creatinine 0.82 0.50-1.40 Lvl) [facility] CenterGmwyydgYLHTDSGFQJGB4598-59-79 09:50:00 Test Item Value Reference Range Interpretation Comments Glucose Lvl (test code = Glucose Lvl) 99 70-99 [facility] CenterDttiiunIXYAGIJALPUT8831-91-40 09:50:00 Test Item Value Reference Range Interpretation Comments AGAP (test code = AGAP) 10.5 10.0-20.0 [facility]LcgoibbRIXPZINVGL0241-01-73 09:50:00 Test Item Value Reference Range Interpretation Comments RBC (test code = RBC) 3.56 4.20-5.40 [facility]QlcqzbfBXIVAVMZWB8588-62-22 09:50:00 Test Item Value Reference Range Interpretation Comments WBC (test code = WBC) 8.1 3.7-10.4 [facility] NortheastHlcbnprFSYDXGOHPK1840-82-39 09:50:00 Test Item Value Reference Range Interpretation Comments Hct (test code = Hct) 33.2 36.0-48.0 [facility] NortheastUsswqgkIDTUNFMWUK0712-88-39 09:50:00 Test Item Value Reference Range Interpretation Comments Hgb (test code = Hgb) 10.9 12.0-16.0 [facility] NortheastNhwtxlaEBOAPMMNSO9507-92-83 09:50:00 Test Item Value Reference Range Interpretation Comments MCH (test code = MCH) 30.5 pg 27.0-31.0 [facility] NortheastVyohwtpPVYOXJEZSD8654-14-64 09:50:00 Test Item Value Reference Range Interpretation Comments MCV (test code = MCV) 93.3 80.0-98.0 [facility] NortheastHoffmwtXJXYGRMFVC9533-33-96 09:50:00 Test Item Value Reference Range Interpretation Comments MCHC (test code = MCHC) 32.7 32.0-36.0 [facility] NortheastZujyzmdLIINFXQNYH7214-00-23 09:50:00 Test Item Value Reference Range Interpretation Comments Platelet (test code = Platelet) 415 133-450 [facility] NortheastWjlpmbcCOELETGPIZ4646-98-55 09:50:00 Test Item Value Reference Range Interpretation Comments MPV (test code = MPV) 7.1 7.4-10.4 [facility] NortheastNopvirkZSQOGJYWDB1663-73-50 09:50:00 Test Item Value Reference Range Interpretation Comments RDW (test code = RDW) 15.3 11.5-14.5 [facility] CenterSvchszfNTHDSXSQXGIQ0582-24-64 09:50:00 Test Item Value Reference Range Interpretation Comments CO2 (test code = CO2) 32 24-32 [facility] CenterCsralppSDYRVVSQYPQD9843-06-00 09:50:00 Test Item Value Reference Range Interpretation Comments Chloride Lvl (test code = Chloride Lvl) 99 95-109 [facility] CenterHrrbcvfWIYILVNRRTNB7827-53-48 09:50:00 Test Item Value Reference Range Interpretation Comments Potassium Lvl (test code = Potassium 3.5 3.5-5.1 Lvl) [facility] CenterPwqqddaVKVQWIOTUGGO8589-92-01 09:50:00 Test Item Value Reference Range Interpretation Comments eGFR (test code = eGFR) 66 [facility] CenterCyzqswqNMGJEGDZGEMK2163-86-80 09:50:00 Test Item Value Reference Range Interpretation Comments Calcium Lvl (test code = Calcium Lvl) 8.9 8.5-10.5 [facility] CenterNxyuminBUFKCQHKRNZM8180-84-18 09:50:00 Test Item Value Reference Range Interpretation Comments BUN (test code = BUN) 18 7-22 [facility] CenterCpjbfsfHCEPVZCCOUSX0416-52-52 09:50:00 Test Item Value Reference Range Interpretation Comments Sodium Lvl (test code = Sodium Lvl) 138 135-145 [facility] CenterWqvgyqfERWCAGWBAIGW3977-50-23 09:50:00 Test Item Value Reference Range Interpretation Comments Creatinine Lvl (test code = Creatinine 0.82 0.50-1.40 Lvl) [facility] CenterIifexwtAEKSXEOLJKPT3277-85-68 09:50:00 Test Item Value Reference Range Interpretation Comments Glucose Lvl (test code = Glucose Lvl) 99 70-99 [facility] CenterGwdepmfVMXBIQQBQZZO5915-27-73 09:50:00 Test Item Value Reference Range Interpretation Comments AGAP (test code = AGAP) 10.5 10.0-20.0 [facility] NortheastKwzqyjyGTKYBJYTYD1127-48-25 09:50:00 Test Item Value Reference Range Interpretation Comments RBC (test code = RBC) 3.56 4.20-5.40 [facility] NortheastClxdpxlEBVQZEJIHT8832-26-19 09:50:00 Test Item Value Reference Range Interpretation Comments WBC (test code = WBC) 8.1 3.7-10.4 [facility] NortheastInnvwndFVAXJFGBGG8861-07-09 09:50:00 Test Item Value Reference Range Interpretation Comments Hct (test code = Hct) 33.2 36.0-48.0 [facility] NortheastRezbyscCBYMORMNEO9905-70-74 09:50:00 Test Item Value Reference Range Interpretation Comments Hgb (test code = Hgb) 10.9 12.0-16.0 [facility] NortheastAchgtzvXPVJGCTPYI5703-79-02 09:50:00 Test Item Value Reference Range Interpretation Comments MCH (test code = MCH) 30.5 pg 27.0-31.0 [facility]OhprqqvALRKQEEFXR3713-19-98 09:50:00 Test Item Value Reference Range Interpretation Comments MCV (test code = MCV) 93.3 80.0-98.0 [facility] NortheastAqjkeljIHHPBVKAOI1191-14-99 09:50:00 Test Item Value Reference Range Interpretation Comments MCHC (test code = MCHC) 32.7 32.0-36.0 [facility] NortheastKypvzqzATFEUKPYTU9620-92-84 09:50:00 Test Item Value Reference Range Interpretation Comments Platelet (test code = Platelet) 415 133-450 [facility] NortheastGryighiNSWAXGAMGH4125-83-41 09:50:00 Test Item Value Reference Range Interpretation Comments MPV (test code = MPV) 7.1 7.4-10.4 [facility] NortheastMdfdqvgRVEKITCOMW6808-17-04 09:50:00 Test Item Value Reference Range Interpretation Comments RDW (test code = RDW) 15.3 11.5-14.5 [facility] CenterGgfkubbRTSOACJCSTBZ8081-45-90 09:50:00 Test Item Value Reference Range Interpretation Comments CO2 (test code = CO2) 32 24-32 [facility] CenterLgmnbsrCZUEHBUBMXCS1680-16-33 09:50:00 Test Item Value Reference Range Interpretation Comments Chloride Lvl (test code = Chloride Lvl) 99 95-109 [facility] CenterIdgjxduSXBDWTERBLDP7906-59-27 09:50:00 Test Item Value Reference Range Interpretation Comments Potassium Lvl (test code = Potassium 3.5 3.5-5.1 Lvl) [facility] CenterDpdmnbqEDNFGPPFOBRR1876-11-16 09:50:00 Test Item Value Reference Range Interpretation Comments eGFR (test code = eGFR) 66 [facility] CenterTcegdffPKOTJHKQQNPE7610-64-54 09:50:00 Test Item Value Reference Range Interpretation Comments Calcium Lvl (test code = Calcium Lvl) 8.9 8.5-10.5 [facility] CenterYwxirbcETYEIIPTAEYD9343-29-68 09:50:00 Test Item Value Reference Range Interpretation Comments BUN (test code = BUN) 18 7-22 [facility] CenterEdvzzlqXZKORPRWYOHO8129-12-23 09:50:00 Test Item Value Reference Range Interpretation Comments Sodium Lvl (test code = Sodium Lvl) 138 135-145 [facility] CenterXabdragTUAJECJPTSCW7025-36-39 09:50:00 Test Item Value Reference Range Interpretation Comments Creatinine Lvl (test code = Creatinine 0.82 0.50-1.40 Lvl) [facility] CenterFdsamreWNMJIEYODPJB1942-49-34 09:50:00 Test Item Value Reference Range Interpretation Comments Glucose Lvl (test code = Glucose Lvl) 99 70-99 [facility] CenterYopwuldPZOODIDRKGYN7148-07-49 09:50:00 Test Item Value Reference Range Interpretation Comments AGAP (test code = AGAP) 10.5 10.0-20.0 [facility] NortheastDemclmhFOFEBMVGCC8833-54-89 09:50:00 Test Item Value Reference Range Interpretation Comments RBC (test code = RBC) 3.56 4.20-5.40 [facility] NortheastDvxunbpUGEGGWBBZL6295-58-83 09:50:00 Test Item Value Reference Range Interpretation Comments WBC (test code = WBC) 8.1 3.7-10.4 [facility] NortheastXoyibtaMCESDERQFN8061-35-92 09:50:00 Test Item Value Reference Range Interpretation Comments Hct (test code = Hct) 33.2 36.0-48.0 [facility] NortheastFfykgbrCKONYXZOMZ0630-87-09 09:50:00 Test Item Value Reference Range Interpretation Comments Hgb (test code = Hgb) 10.9 12.0-16.0 [facility] NortheastHcafepdLWIIEWLKIK0708-65-44 09:50:00 Test Item Value Reference Range Interpretation Comments MCH (test code = MCH) 30.5 pg 27.0-31.0 [facility] NortheastBxmnfcsMMKLFMLNOO7849-48-00 09:50:00 Test Item Value Reference Range Interpretation Comments MCV (test code = MCV) 93.3 80.0-98.0 [facility] NortheastVmlcvadTZGLDVRFBJ5228-87-54 09:50:00 Test Item Value Reference Range Interpretation Comments MCHC (test code = MCHC) 32.7 32.0-36.0 [facility] NortheastMjmbmkvXDMENIVRGX8979-33-42 09:50:00 Test Item Value Reference Range Interpretation Comments Platelet (test code = Platelet) 415 133-450 [facility] NortheastHzktkflIGUWYUSHJZ3191-07-99 09:50:00 Test Item Value Reference Range Interpretation Comments MPV (test code = MPV) 7.1 7.4-10.4 [facility] NortheastPxvihbsJPBIJCQIAH7817-98-87 09:50:00 Test Item Value Reference Range Interpretation Comments RDW (test code = RDW) 15.3 11.5-14.5 [facility] CenterYprebnaGTSHIHIGQQUN9182-95-67 09:50:00 Test Item Value Reference Range Interpretation Comments CO2 (test code = CO2) 32 24-32 [facility] CenterSnmexttZYXLVSQTDMZJ5957-50-67 09:50:00 Test Item Value Reference Range Interpretation Comments Chloride Lvl (test code = Chloride Lvl) 99 95-109 [facility] CenterEgkmtczTJMJVNZGZUZE1541-28-79 09:50:00 Test Item Value Reference Range Interpretation Comments Potassium Lvl (test code = Potassium 3.5 3.5-5.1 Lvl) [facility] CenterAqusqkyFIOZTRLYNNGI1898-97-28 09:50:00 Test Item Value Reference Range Interpretation Comments eGFR (test code = eGFR) 66 [facility] CenterThjnfqcYGTYNNAKOKZY1241-94-86 09:50:00 Test Item Value Reference Range Interpretation Comments Calcium Lvl (test code = Calcium Lvl) 8.9 8.5-10.5 [facility] CenterDoartxlAVXTCIPIXTLB7436-16-96 09:50:00 Test Item Value Reference Range Interpretation Comments BUN (test code = BUN) 18 7-22 [facility] CenterWzkhrvuZAWJRBDXIGQM5801-90-77 09:50:00 Test Item Value Reference Range Interpretation Comments Sodium Lvl (test code = Sodium Lvl) 138 135-145 [facility] CenterQjmqrinSVDYOWWXLKXF1035-48-60 09:50:00 Test Item Value Reference Range Interpretation Comments Creatinine Lvl (test code = Creatinine 0.82 0.50-1.40 Lvl) [facility] CenterZtbaxhcSPAJCWFDRWUK2781-25-70 09:50:00 Test Item Value Reference Range Interpretation Comments Glucose Lvl (test code = Glucose Lvl) 99 70-99 [facility] CenterQbvgbpeDTZLSRZFKNJR5785-56-57 09:50:00 Test Item Value Reference Range Interpretation Comments AGAP (test code = AGAP) 10.5 10.0-20.0 [facility] NortheastExieqeuBAEQLCUZOT0272-21-57 09:50:00 Test Item Value Reference Range Interpretation Comments RBC (test code = RBC) 3.56 4.20-5.40 [facility] NortheastYkmvsqlDKTXOGSVML4152-37-42 09:50:00 Test Item Value Reference Range Interpretation Comments WBC (test code = WBC) 8.1 3.7-10.4 [facility] NortheastMwdctqsGQHYCQFANG0324-37-14 09:50:00 Test Item Value Reference Range Interpretation Comments Hct (test code = Hct) 33.2 36.0-48.0 [facility] NortheastCsujkzpABCIAEKWPC8422-20-55 09:50:00 Test Item Value Reference Range Interpretation Comments Hgb (test code = Hgb) 10.9 12.0-16.0 [facility] NortheastTfhcgshWSSOAMEUUP4887-22-14 09:50:00 Test Item Value Reference Range Interpretation Comments MCH (test code = MCH) 30.5 pg 27.0-31.0 [facility] NortheastTnnikaeLRQALNDLRR8225-04-70 09:50:00 Test Item Value Reference Range Interpretation Comments MCV (test code = MCV) 93.3 80.0-98.0 [facility] NortheastKjuwimdZNPMBCQVPN5382-83-22 09:50:00 Test Item Value Reference Range Interpretation Comments MCHC (test code = MCHC) 32.7 32.0-36.0 [facility] NortheastOwvviwaBWHSFFCMZR0744-13-02 09:50:00 Test Item Value Reference Range Interpretation Comments Platelet (test code = Platelet) 415 133-450 [facility] NortheastIojsjqhNFCHDOTBUA1289-62-10 09:50:00 Test Item Value Reference Range Interpretation Comments MPV (test code = MPV) 7.1 7.4-10.4 [facility] NortheastCaplmvtZUIUIEIQHT6130-06-14 09:50:00 Test Item Value Reference Range Interpretation Comments RDW (test code = RDW) 15.3 11.5-14.5 [facility] CenterIfroukgZAPMCMTBUMTI6473-22-35 09:50:00 Test Item Value Reference Range Interpretation Comments CO2 (test code = CO2) 32 24-32 [facility] CenterBdchthhIZTFMPEOBPJO1599-81-88 09:50:00 Test Item Value Reference Range Interpretation Comments Chloride Lvl (test code = Chloride Lvl) 99 95-109 [facility] CenterQkwioigHCVXAKBMNTUS1975-20-35 09:50:00 Test Item Value Reference Range Interpretation Comments Potassium Lvl (test code = Potassium 3.5 3.5-5.1 Lvl) [facility] CenterDvkpjbdLZDPUNQZYYMJ7661-86-47 09:50:00 Test Item Value Reference Range Interpretation Comments eGFR (test code = eGFR) 66 [facility] CenterZayggnoESPSKZIJTCBX4955-89-88 09:50:00 Test Item Value Reference Range Interpretation Comments Calcium Lvl (test code = Calcium Lvl) 8.9 8.5-10.5 [facility] CenterWbtrhzgYBFQTNEQOZFN7805-71-88 09:50:00 Test Item Value Reference Range Interpretation Comments BUN (test code = BUN) 18 7-22 [facility] CenterZhmwnzsIJKCFNFPBZHD5705-50-16 09:50:00 Test Item Value Reference Range Interpretation Comments Sodium Lvl (test code = Sodium Lvl) 138 135-145 [facility] CenterGkccxsiDNZCBRPZRCEF0826-12-26 09:50:00 Test Item Value Reference Range Interpretation Comments Creatinine Lvl (test code = Creatinine 0.82 0.50-1.40 Lvl) [facility] CenterEpotvccMOCWSLSAFOFM7942-21-39 09:50:00 Test Item Value Reference Range Interpretation Comments Glucose Lvl (test code = Glucose Lvl) 99 70-99 [facility] CenterCtkrlcpUDZLBQVMDQRS8610-49-76 09:50:00 Test Item Value Reference Range Interpretation Comments AGAP (test code = AGAP) 10.5 10.0-20.0 [facility] NortheastEfxbijgRYJHIBFEIV1864-89-83 09:50:00 Test Item Value Reference Range Interpretation Comments RBC (test code = RBC) 3.56 4.20-5.40 [facility] NortheastBkkizfbICWYKJLTAB3954-44-17 09:50:00 Test Item Value Reference Range Interpretation Comments WBC (test code = WBC) 8.1 3.7-10.4 [facility] NortheastQrxamxlBSXQUXHSAI4616-86-34 09:50:00 Test Item Value Reference Range Interpretation Comments Hct (test code = Hct) 33.2 36.0-48.0 [facility] NortheastCcylaumODPLIWLGYG0526-99-11 09:50:00 Test Item Value Reference Range Interpretation Comments Hgb (test code = Hgb) 10.9 12.0-16.0 [facility] NortheastPljhgxxPCGJRPBMTT5524-44-10 09:50:00 Test Item Value Reference Range Interpretation Comments MCH (test code = MCH) 30.5 pg 27.0-31.0 [facility] NortheastPfgccniRWLVZMCCKO6567-94-49 09:50:00 Test Item Value Reference Range Interpretation Comments MCV (test code = MCV) 93.3 80.0-98.0 [facility] NortheastCkszlwbIUFFMGGGJI9860-81-98 09:50:00 Test Item Value Reference Range Interpretation Comments MCHC (test code = MCHC) 32.7 32.0-36.0 [facility] NortheastRyqtyknXMJXHSWGKK5255-16-32 09:50:00 Test Item Value Reference Range Interpretation Comments Platelet (test code = Platelet) 415 133-450 [facility] NortheastRrrohdvXNPHMEYOUV3268-25-76 09:50:00 Test Item Value Reference Range Interpretation Comments MPV (test code = MPV) 7.1 7.4-10.4 [facility] NortheastJogbijoSVKEJVDHUC8014-29-79 09:50:00 Test Item Value Reference Range Interpretation Comments RDW (test code = RDW) 15.3 11.5-14.5 [facility] CenterEudsimoVWBHTLERLQSQ1184-80-25 09:50:00 Test Item Value Reference Range Interpretation Comments CO2 (test code = CO2) 32 24-32 [facility] CenterThezfweCSTOGIBIEBDA9830-08-39 09:50:00 Test Item Value Reference Range Interpretation Comments Chloride Lvl (test code = Chloride Lvl) 99 95-109 [facility] CenterAehjzyhWTEZJFBUUPGS0367-25-61 09:50:00 Test Item Value Reference Range Interpretation Comments Potassium Lvl (test code = Potassium 3.5 3.5-5.1 Lvl) [facility] CenterErbekvrYAUTNFOBPEXN8869-06-43 09:50:00 Test Item Value Reference Range Interpretation Comments eGFR (test code = eGFR) 66 [facility] CenterXfjprlzPLHZNIXCZVNR3287-98-19 09:50:00 Test Item Value Reference Range Interpretation Comments Calcium Lvl (test code = Calcium Lvl) 8.9 8.5-10.5 [facility] CenterRukxscsVPUSTUCEIDGH8142-23-53 09:50:00 Test Item Value Reference Range Interpretation Comments BUN (test code = BUN) 18 7-22 [facility] CenterEvucedmVXNXNGBTNLPB8136-36-72 09:50:00 Test Item Value Reference Range Interpretation Comments Sodium Lvl (test code = Sodium Lvl) 138 135-145 [facility] CenterQywjkqtZSVUGLMPFUDX4874-89-09 09:50:00 Test Item Value Reference Range Interpretation Comments Creatinine Lvl (test code = Creatinine 0.82 0.50-1.40 Lvl) [facility] CenterUuavaobXOCUDPJCYZFJ0617-93-11 09:50:00 Test Item Value Reference Range Interpretation Comments Glucose Lvl (test code = Glucose Lvl) 99 70-99 [facility] CenterCthykgqXRILBBPVSPEU1753-25-29 09:50:00 Test Item Value Reference Range Interpretation Comments AGAP (test code = AGAP) 10.5 10.0-20.0 [facility] NortheastIzlzygiXWEUKEXCZR3014-00-05 09:50:00 Test Item Value Reference Range Interpretation Comments RBC (test code = RBC) 3.56 4.20-5.40 [facility] NortheastFavavtfJREKDMWHCE7604-69-10 09:50:00 Test Item Value Reference Range Interpretation Comments WBC (test code = WBC) 8.1 3.7-10.4 [facility] NortheastXjdrrcuUHUNBUWAFF8261-28-05 09:50:00 Test Item Value Reference Range Interpretation Comments Hct (test code = Hct) 33.2 36.0-48.0 [facility] NortheastGspezvrNCMSRLVFKS8044-99-21 09:50:00 Test Item Value Reference Range Interpretation Comments Hgb (test code = Hgb) 10.9 12.0-16.0 [facility] NortheastEubonqeEWOYUWJNDY5449-97-30 09:50:00 Test Item Value Reference Range Interpretation Comments MCH (test code = MCH) 30.5 pg 27.0-31.0 [facility] NortheastRxychjiSKVTMHSTND2098-09-88 09:50:00 Test Item Value Reference Range Interpretation Comments MCV (test code = MCV) 93.3 80.0-98.0 [facility] NortheastSekpdzoBEZWVIPWBF2717-77-14 09:50:00 Test Item Value Reference Range Interpretation Comments MCHC (test code = MCHC) 32.7 32.0-36.0 [facility] NortheastGgvfgthSIBUETJCVQ3237-71-82 09:50:00 Test Item Value Reference Range Interpretation Comments Platelet (test code = Platelet) 415 133-450 [facility] NortheastRehfiibQKUOUWJLPD4091-94-02 09:50:00 Test Item Value Reference Range Interpretation Comments MPV (test code = MPV) 7.1 7.4-10.4 [facility] NortheastQoqixliVRICEYUXKU7170-62-35 09:50:00 Test Item Value Reference Range Interpretation Comments RDW (test code = RDW) 15.3 11.5-14.5 [facility] CenterLibaijkKTAHXMJDMLVO4389-33-16 09:50:00 Test Item Value Reference Range Interpretation Comments CO2 (test code = CO2) 32 24-32 [facility] CenterNwmteadIUEPGQQPIZUJ4470-93-37 09:50:00 Test Item Value Reference Range Interpretation Comments Chloride Lvl (test code = Chloride Lvl) 99 95-109 [facility] CenterHjlilwrDXLLBBFNSRUB8311-93-78 09:50:00 Test Item Value Reference Range Interpretation Comments Potassium Lvl (test code = Potassium 3.5 3.5-5.1 Lvl) [facility] CenterZmwjxokYHGGIIPSXIRV4502-26-37 09:50:00 Test Item Value Reference Range Interpretation Comments eGFR (test code = eGFR) 66 [facility] CenterGbtgsukCSKZGZQKKLOM5110-48-52 09:50:00 Test Item Value Reference Range Interpretation Comments Calcium Lvl (test code = Calcium Lvl) 8.9 8.5-10.5 [facility] CenterVpzcllcLTTWBBRVIVPL6343-39-50 09:50:00 Test Item Value Reference Range Interpretation Comments BUN (test code = BUN) 18 7-22 [facility] CenterQkldfroOUYOYAMESLZQ9262-88-12 09:50:00 Test Item Value Reference Range Interpretation Comments Sodium Lvl (test code = Sodium Lvl) 138 135-145 [facility] CenterVlhpevxDRHQBGPERSJT4839-20-34 09:50:00 Test Item Value Reference Range Interpretation Comments Creatinine Lvl (test code = Creatinine 0.82 0.50-1.40 Lvl) [facility] CenterRucubcnHCAYTLQAPSEW5004-95-42 09:50:00 Test Item Value Reference Range Interpretation Comments Glucose Lvl (test code = Glucose Lvl) 99 70-99 [facility] CenterOmimrwwKGQJPOSKIQNP4358-97-53 09:50:00 Test Item Value Reference Range Interpretation Comments AGAP (test code = AGAP) 10.5 10.0-20.0 [facility] NortheastBevaboyQLLIQSDPVS9848-64-25 09:50:00 Test Item Value Reference Range Interpretation Comments RBC (test code = RBC) 3.56 4.20-5.40 [facility] NortheastWekqhubQEFIGLLJNE3796-68-24 09:50:00 Test Item Value Reference Range Interpretation Comments WBC (test code = WBC) 8.1 3.7-10.4 [facility] NortheastVnoftwcJUJUYYXGHT2628-74-78 09:50:00 Test Item Value Reference Range Interpretation Comments Hct (test code = Hct) 33.2 36.0-48.0 [facility] NortheastIbdlnnnXRSBSNKCCK1746-85-78 09:50:00 Test Item Value Reference Range Interpretation Comments Hgb (test code = Hgb) 10.9 12.0-16.0 [facility] NortheastClzrwzeLJYEAIPXZD3507-46-15 09:50:00 Test Item Value Reference Range Interpretation Comments MCH (test code = MCH) 30.5 pg 27.0-31.0 [facility] NortheastMvkyatgVLNWNLRSLG2447-40-51 09:50:00 Test Item Value Reference Range Interpretation Comments MCV (test code = MCV) 93.3 80.0-98.0 [facility] NortheastRrruassPNKFRAANTS8395-42-39 09:50:00 Test Item Value Reference Range Interpretation Comments MCHC (test code = MCHC) 32.7 32.0-36.0 [facility] NortheastJsomjztFCAJOCWNUF7211-83-88 09:50:00 Test Item Value Reference Range Interpretation Comments Platelet (test code = Platelet) 415 133-450 [facility] NortheastNxsfjjhPZRXURQVNN8282-34-57 09:50:00 Test Item Value Reference Range Interpretation Comments MPV (test code = MPV) 7.1 7.4-10.4 [facility] NortheastVpsfqepFFJRFKXHEC9954-55-01 09:50:00 Test Item Value Reference Range Interpretation Comments RDW (test code = RDW) 15.3 11.5-14.5 [facility] CenterJrnxsojAXCKJYXZNOKL7583-18-56 09:50:00 Test Item Value Reference Range Interpretation Comments CO2 (test code = CO2) 32 24-32 [facility] CenterYjiqjiyTKSCSIRRBXEP5641-20-33 09:50:00 Test Item Value Reference Range Interpretation Comments Chloride Lvl (test code = Chloride Lvl) 99 95-109 [facility] CenterHnvjtjeJVGJVJHSUIGC8906-17-88 09:50:00 Test Item Value Reference Range Interpretation Comments Potassium Lvl (test code = Potassium 3.5 3.5-5.1 Lvl) [facility] CenterTwqbzatDOKEIPDBNDUK9197-32-38 09:50:00 Test Item Value Reference Range Interpretation Comments eGFR (test code = eGFR) 66 [facility] CenterVqimuheVMSIIVEYBPLU6644-43-84 09:50:00 Test Item Value Reference Range Interpretation Comments Calcium Lvl (test code = Calcium Lvl) 8.9 8.5-10.5 [facility] CenterLieavuhCPFRVOVGAEIP7496-20-73 09:50:00 Test Item Value Reference Range Interpretation Comments BUN (test code = BUN) 18 7-22 [facility] CenterSswmtoaSWOLQOGIVUDU5803-55-79 09:50:00 Test Item Value Reference Range Interpretation Comments Sodium Lvl (test code = Sodium Lvl) 138 135-145 [facility] CenterNumpybdEGUDXHSRLUGG3671-04-93 09:50:00 Test Item Value Reference Range Interpretation Comments Creatinine Lvl (test code = Creatinine 0.82 0.50-1.40 Lvl) [facility] CenterTllfmitTVPTNFTRCWXK8487-94-30 09:50:00 Test Item Value Reference Range Interpretation Comments Glucose Lvl (test code = Glucose Lvl) 99 70-99 [facility] CenterXxvkvyqAFKSCXRZVHRD6432-71-34 09:50:00 Test Item Value Reference Range Interpretation Comments AGAP (test code = AGAP) 10.5 10.0-20.0 [facility] NortheastAihsmqnZMVJCKKBIQ4656-14-66 09:50:00 Test Item Value Reference Range Interpretation Comments RBC (test code = RBC) 3.56 4.20-5.40 [facility] NortheastAxorodgXGZCMRWYDS3206-35-77 09:50:00 Test Item Value Reference Range Interpretation Comments WBC (test code = WBC) 8.1 3.7-10.4 [facility] NortheastIkckuztJLKDSBFDYN5387-66-79 09:50:00 Test Item Value Reference Range Interpretation Comments Hct (test code = Hct) 33.2 36.0-48.0 [facility] NortheastIdnjaypDUUWIQEABD6311-28-84 09:50:00 Test Item Value Reference Range Interpretation Comments Hgb (test code = Hgb) 10.9 12.0-16.0 [facility] NortheastJmiogmaECILVQOQGI5931-75-97 09:50:00 Test Item Value Reference Range Interpretation Comments MCH (test code = MCH) 30.5 pg 27.0-31.0 [facility]ObddzgsAECSLFRHNM1381-03-35 09:50:00 Test Item Value Reference Range Interpretation Comments MCV (test code = MCV) 93.3 80.0-98.0 [facility]TidjnepWBPVEIVUCO2488-06-13 09:50:00 Test Item Value Reference Range Interpretation Comments MCHC (test code = MCHC) 32.7 32.0-36.0 [facility] NortheastBygoguwKYLEODRMEO8719-21-34 09:50:00 Test Item Value Reference Range Interpretation Comments Platelet (test code = Platelet) 415 133-450 [facility] NortheastQpglopcLLIHIWCIJF1683-52-47 09:50:00 Test Item Value Reference Range Interpretation Comments MPV (test code = MPV) 7.1 7.4-10.4 [facility] NortheastIbxmlsiCZHHYPDNIL5027-90-82 09:50:00 Test Item Value Reference Range Interpretation Comments RDW (test code = RDW) 15.3 11.5-14.5 [facility]IccccgaPXUGTLNLEBTM4351-82-68 09:50:00 Test Item Value Reference Range Interpretation Comments CO2 (test code = CO2) 32 24-32 [facility] CenterNzqrgzaSKTEXNJWWYER5651-07-51 09:50:00 Test Item Value Reference Range Interpretation Comments Chloride Lvl (test code = Chloride Lvl) 99 95-109 [facility] CenterDizuawwOMHALLKYOJIQ9479-22-88 09:50:00 Test Item Value Reference Range Interpretation Comments Potassium Lvl (test code = Potassium 3.5 3.5-5.1 Lvl) [facility] CenterLhnfctyYKZJDIIZYEZU0635-31-97 09:50:00 Test Item Value Reference Range Interpretation Comments eGFR (test code = eGFR) 66 [facility] CenterEvmgktaUEAGPAYBSOXO5327-21-73 09:50:00 Test Item Value Reference Range Interpretation Comments Calcium Lvl (test code = Calcium Lvl) 8.9 8.5-10.5 [facility] CenterFobuicrLJABDWRHBQEE5262-97-83 09:50:00 Test Item Value Reference Range Interpretation Comments BUN (test code = BUN) 18 7-22 [facility] CenterUxcovfbREGMABHYNQGM8843-50-75 09:50:00 Test Item Value Reference Range Interpretation Comments Sodium Lvl (test code = Sodium Lvl) 138 135-145 [facility] CenterUqqkkefTMQGCNWYAQGA1939-31-77 09:50:00 Test Item Value Reference Range Interpretation Comments Creatinine Lvl (test code = Creatinine 0.82 0.50-1.40 Lvl) [facility] CenterUyfbiuzACGWUHTSEAHO4545-75-26 09:50:00 Test Item Value Reference Range Interpretation Comments Glucose Lvl (test code = Glucose Lvl) 99 70-99 [facility] CenterYviglmvZEWGMXPVVFLX1781-48-48 09:50:00 Test Item Value Reference Range Interpretation Comments AGAP (test code = AGAP) 10.5 10.0-20.0 [facility]IxqgchsPCNWWPMLDK4458-23-53 09:50:00 Test Item Value Reference Range Interpretation Comments RBC (test code = RBC) 3.56 4.20-5.40 [facility]YtcteqcXTKIROHQGY1651-06-25 09:50:00 Test Item Value Reference Range Interpretation Comments WBC (test code = WBC) 8.1 3.7-10.4 [facility] NortheastGttjgdiKXPYCRUMZR6056-05-00 09:50:00 Test Item Value Reference Range Interpretation Comments Hct (test code = Hct) 33.2 36.0-48.0 [facility] NortheastZazxvshRFDWALQLLR9376-85-63 09:50:00 Test Item Value Reference Range Interpretation Comments Hgb (test code = Hgb) 10.9 12.0-16.0 [facility] NortheastRilqrkbUCNDXQHCFE1923-48-62 09:50:00 Test Item Value Reference Range Interpretation Comments MCH (test code = MCH) 30.5 pg 27.0-31.0 [facility] NortheastEbvddlsQQFLBDLJAA2148-01-43 09:50:00 Test Item Value Reference Range Interpretation Comments MCV (test code = MCV) 93.3 80.0-98.0 [facility] NortheastPukraozZNJKUTCGVR6870-62-90 09:50:00 Test Item Value Reference Range Interpretation Comments MCHC (test code = MCHC) 32.7 32.0-36.0 [facility] NortheastHfjimymTOVXBXFFGC6118-24-96 09:50:00 Test Item Value Reference Range Interpretation Comments Platelet (test code = Platelet) 415 133-450 [facility] NortheastWnorhpiSMIMQSPRZS2009-76-69 09:50:00 Test Item Value Reference Range Interpretation Comments MPV (test code = MPV) 7.1 7.4-10.4 [facility] NortheastDikhdqiFRJLWGZWBV4015-02-35 09:50:00 Test Item Value Reference Range Interpretation Comments RDW (test code = RDW) 15.3 11.5-14.5 [facility] CenterNuifqapKNHVTJITLIZU9486-35-34 09:50:00 Test Item Value Reference Range Interpretation Comments CO2 (test code = CO2) 32 24-32 [facility] CenterTerrumeGDQBACKQFFFP0651-09-43 09:50:00 Test Item Value Reference Range Interpretation Comments Chloride Lvl (test code = Chloride Lvl) 99 95-109 [facility] CenterWuwquyxYNLXWKLPFUYX2184-10-09 09:50:00 Test Item Value Reference Range Interpretation Comments Potassium Lvl (test code = Potassium 3.5 3.5-5.1 Lvl) [facility] CenterOmthapxNPKGLYTSKTOS2009-54-78 09:50:00 Test Item Value Reference Range Interpretation Comments eGFR (test code = eGFR) 66 [facility] CenterFppkusxLEGTFLRIKDLK2626-59-78 09:50:00 Test Item Value Reference Range Interpretation Comments Calcium Lvl (test code = Calcium Lvl) 8.9 8.5-10.5 [facility] CenterXuvsqijCHAVLEZFRJVS7908-95-44 09:50:00 Test Item Value Reference Range Interpretation Comments BUN (test code = BUN) 18 7-22 [facility] CenterSbrdnbpKAUJRFPGXGMJ5863-94-64 09:50:00 Test Item Value Reference Range Interpretation Comments Sodium Lvl (test code = Sodium Lvl) 138 135-145 [facility] CenterBdykpyiRNKYTRCDFGWD7638-45-20 09:50:00 Test Item Value Reference Range Interpretation Comments Creatinine Lvl (test code = Creatinine 0.82 0.50-1.40 Lvl) [facility] CenterMkevroyDCIIIJDXKQSY5964-52-01 09:50:00 Test Item Value Reference Range Interpretation Comments Glucose Lvl (test code = Glucose Lvl) 99 70-99 [facility] CenterGorgixgOEHZXVALMODK7135-62-20 09:50:00 Test Item Value Reference Range Interpretation Comments AGAP (test code = AGAP) 10.5 10.0-20.0 [facility] NortheastKaobgyyLNMUNTDNPE0942-89-94 09:50:00 Test Item Value Reference Range Interpretation Comments RBC (test code = RBC) 3.56 4.20-5.40 [facility] NortheastTxhxrheRORXBEJBXS6714-57-25 09:50:00 Test Item Value Reference Range Interpretation Comments WBC (test code = WBC) 8.1 3.7-10.4 [facility] NortheastOwdwwvxEEKKEPWBGO9801-48-95 09:50:00 Test Item Value Reference Range Interpretation Comments Hct (test code = Hct) 33.2 36.0-48.0 [facility]OflrdqxUHWMLWZOOQ9780-10-95 09:50:00 Test Item Value Reference Range Interpretation Comments Hgb (test code = Hgb) 10.9 12.0-16.0 [facility] NortheastBavhvveSCJNRJISXI0839-66-01 09:50:00 Test Item Value Reference Range Interpretation Comments MCH (test code = MCH) 30.5 pg 27.0-31.0 [facility] NortheastGyobwrsMTDJZVFYVA4340-54-26 09:50:00 Test Item Value Reference Range Interpretation Comments MCV (test code = MCV) 93.3 80.0-98.0 [facility] NortheastNogpglhXQKXGCPVAM4888-72-38 09:50:00 Test Item Value Reference Range Interpretation Comments MCHC (test code = MCHC) 32.7 32.0-36.0 [facility] NortheastOdpqjfhRLKWPNLDAU8138-97-44 09:50:00 Test Item Value Reference Range Interpretation Comments Platelet (test code = Platelet) 415 133-450 [facility] NortheastUnsaynqWYYMHEWSDU0525-29-75 09:50:00 Test Item Value Reference Range Interpretation Comments MPV (test code = MPV) 7.1 7.4-10.4 [facility] NortheastRyxleeuIETPZRMGXF4896-54-37 09:50:00 Test Item Value Reference Range Interpretation Comments RDW (test code = RDW) 15.3 11.5-14.5 [facility] CenterUlguiuqQUCOZLNRWHUG5412-41-90 09:50:00 Test Item Value Reference Range Interpretation Comments CO2 (test code = CO2) 32 24-32 [facility] CenterNheaemfFWGKVNRDFJVX2468-31-49 09:50:00 Test Item Value Reference Range Interpretation Comments Chloride Lvl (test code = Chloride Lvl) 99 95-109 [facility] CenterVvheiucTNCIMIVPAEAD8610-83-29 09:50:00 Test Item Value Reference Range Interpretation Comments Potassium Lvl (test code = Potassium 3.5 3.5-5.1 Lvl) [facility] CenterUecqukmPFMOXEUJXQEZ6588-40-51 09:50:00 Test Item Value Reference Range Interpretation Comments eGFR (test code = eGFR) 66 [facility] CenterNmsheteQTAIGVXMMLQV4248-81-05 09:50:00 Test Item Value Reference Range Interpretation Comments Calcium Lvl (test code = Calcium Lvl) 8.9 8.5-10.5 [facility] CenterHhnsimdNYBKFFPMIFRL8435-18-00 09:50:00 Test Item Value Reference Range Interpretation Comments BUN (test code = BUN) 18 7-22 [facility] CenterPeoxprwGBNHYPLDMKIN6031-46-03 09:50:00 Test Item Value Reference Range Interpretation Comments Sodium Lvl (test code = Sodium Lvl) 138 135-145 [facility] CenterHffgheyAIISUEYOGOQD3143-84-18 09:50:00 Test Item Value Reference Range Interpretation Comments Creatinine Lvl (test code = Creatinine 0.82 0.50-1.40 Lvl) [facility] CenterOjqkmkfZCWSTOTYGCYF5162-39-01 09:50:00 Test Item Value Reference Range Interpretation Comments Glucose Lvl (test code = Glucose Lvl) 99 70-99 [facility] CenterLnbruysHJJMHYKZECIG3707-67-63 09:50:00 Test Item Value Reference Range Interpretation Comments AGAP (test code = AGAP) 10.5 10.0-20.0 [facility] NortheastLqwmoowXHOUBQQTLE2833-92-32 09:50:00 Test Item Value Reference Range Interpretation Comments RBC (test code = RBC) 3.56 4.20-5.40 [facility] NortheastCwifmgtRPAHIJREVP3844-38-84 09:50:00 Test Item Value Reference Range Interpretation Comments WBC (test code = WBC) 8.1 3.7-10.4 [facility] NortheastYbbjxxbOVLGRBVXQG1582-75-23 09:50:00 Test Item Value Reference Range Interpretation Comments Hct (test code = Hct) 33.2 36.0-48.0 [facility] NortheastJurreyiOOCZONQXVZ9906-50-07 09:50:00 Test Item Value Reference Range Interpretation Comments Hgb (test code = Hgb) 10.9 12.0-16.0 [facility] NortheastXcdcgnsWJHLQDSWIZ0561-05-00 09:50:00 Test Item Value Reference Range Interpretation Comments MCH (test code = MCH) 30.5 pg 27.0-31.0 [facility] NortheastQpqacogNASCNLAQBO8384-33-64 09:50:00 Test Item Value Reference Range Interpretation Comments MCV (test code = MCV) 93.3 80.0-98.0 [facility] NortheastMeqhbyhMGHWEEDJRI7409-12-61 09:50:00 Test Item Value Reference Range Interpretation Comments MCHC (test code = MCHC) 32.7 32.0-36.0 [facility] NortheastAdenedyAIEYNCDQSQ4380-12-41 09:50:00 Test Item Value Reference Range Interpretation Comments Platelet (test code = Platelet) 415 133-450 [facility] NortheastNjyxohiTNUZMHYFGD7735-50-36 09:50:00 Test Item Value Reference Range Interpretation Comments MPV (test code = MPV) 7.1 7.4-10.4 [facility] NortheastJdfhithRMJDPWZCXT4494-78-74 09:50:00 Test Item Value Reference Range Interpretation Comments RDW (test code = RDW) 15.3 11.5-14.5 [facility] CenterVrydecwLIRXVEAWUYND2981-34-74 09:50:00 Test Item Value Reference Range Interpretation Comments CO2 (test code = CO2) 32 24-32 [facility] CenterApvbfxzXUREFLYXPWAU0372-18-46 09:50:00 Test Item Value Reference Range Interpretation Comments Chloride Lvl (test code = Chloride Lvl) 99 95-109 [facility] CenterRcxjilsADHOUEFXCAJR8050-54-03 09:50:00 Test Item Value Reference Range Interpretation Comments Potassium Lvl (test code = Potassium 3.5 3.5-5.1 Lvl) [facility] CenterTuttnpjINOELIRHQRPC5224-42-89 09:50:00 Test Item Value Reference Range Interpretation Comments eGFR (test code = eGFR) 66 [facility] CenterXpajyouPJHPHNOPXFAZ6375-83-50 09:50:00 Test Item Value Reference Range Interpretation Comments Calcium Lvl (test code = Calcium Lvl) 8.9 8.5-10.5 [facility] CenterKlxdezyVQUSHBQXEFTU7263-12-19 09:50:00 Test Item Value Reference Range Interpretation Comments BUN (test code = BUN) 18 7-22 [facility] CenterIrteivlRTVCVVTUWYLW4119-41-99 09:50:00 Test Item Value Reference Range Interpretation Comments Sodium Lvl (test code = Sodium Lvl) 138 135-145 [facility] CenterUdvnltfAOGPYPFVKOHA4819-34-05 09:50:00 Test Item Value Reference Range Interpretation Comments Creatinine Lvl (test code = Creatinine 0.82 0.50-1.40 Lvl) [facility] CenterLjwlilfBBTRSVAUYSMY7613-57-43 09:50:00 Test Item Value Reference Range Interpretation Comments Glucose Lvl (test code = Glucose Lvl) 99 70-99 [facility] CenterUsgppieLUHTBIXLIJKY2584-56-61 09:50:00 Test Item Value Reference Range Interpretation Comments AGAP (test code = AGAP) 10.5 10.0-20.0 [facility]MfdwjpbREEIPQAFLQ7423-62-86 09:50:00 Test Item Value Reference Range Interpretation Comments RBC (test code = RBC) 3.56 4.20-5.40 [facility] NortheastAgdtskuFUAUOJMFQL5856-77-19 09:50:00 Test Item Value Reference Range Interpretation Comments WBC (test code = WBC) 8.1 3.7-10.4 [facility] NortheastAlblxwbDSFHUULWQN4755-58-93 09:50:00 Test Item Value Reference Range Interpretation Comments Hct (test code = Hct) 33.2 36.0-48.0 [facility] NortheastPsybpzrTNISROQOWU8612-36-30 09:50:00 Test Item Value Reference Range Interpretation Comments Hgb (test code = Hgb) 10.9 12.0-16.0 [facility] NortheastErnhtmvCSWHWPYMAE1648-01-17 09:50:00 Test Item Value Reference Range Interpretation Comments MCH (test code = MCH) 30.5 pg 27.0-31.0 [facility] NortheastCqynpglAMVJEXQALD8557-08-81 09:50:00 Test Item Value Reference Range Interpretation Comments MCV (test code = MCV) 93.3 80.0-98.0 [facility] NortheastIclvjmiJBLEYQREKI9867-16-31 09:50:00 Test Item Value Reference Range Interpretation Comments MCHC (test code = MCHC) 32.7 32.0-36.0 [facility] NortheastGngudiiEDLKIVCPQY0356-11-74 09:50:00 Test Item Value Reference Range Interpretation Comments Platelet (test code = Platelet) 415 133-450 [facility] NortheastCnzzjyeDURVGULQDU3227-39-42 09:50:00 Test Item Value Reference Range Interpretation Comments MPV (test code = MPV) 7.1 7.4-10.4 [facility] NortheastGgmnrcwAZOOFKCJDW5196-57-20 09:50:00 Test Item Value Reference Range Interpretation Comments RDW (test code = RDW) 15.3 11.5-14.5 [facility] CenterMivejlyQPPKUBBFHVVV4271-15-89 09:50:00 Test Item Value Reference Range Interpretation Comments CO2 (test code = CO2) 32 24-32 [facility] CenterUpswqzaUTFFFQCLFFNI9665-34-46 09:50:00 Test Item Value Reference Range Interpretation Comments Chloride Lvl (test code = Chloride Lvl) 99 95-109 [facility] CenterUnfbxdlSHSAQBAPZLJZ9064-10-52 09:50:00 Test Item Value Reference Range Interpretation Comments Potassium Lvl (test code = Potassium 3.5 3.5-5.1 Lvl) [facility] CenterZodezhwQIEZAALIQLFA8783-59-81 09:50:00 Test Item Value Reference Range Interpretation Comments eGFR (test code = eGFR) 66 [facility] CenterNjpaczaBXFJHCIIBBAW7209-42-38 09:50:00 Test Item Value Reference Range Interpretation Comments Calcium Lvl (test code = Calcium Lvl) 8.9 8.5-10.5 [facility] CenterZvydndqPQJWEZDCAAJV1150-16-95 09:50:00 Test Item Value Reference Range Interpretation Comments BUN (test code = BUN) 18 7-22 [facility] CenterOtiiuerNWHSQBVCPUGC1050-44-35 09:50:00 Test Item Value Reference Range Interpretation Comments Sodium Lvl (test code = Sodium Lvl) 138 135-145 [facility] CenterVvxnzilQQDYWUDCBOHM0213-29-24 09:50:00 Test Item Value Reference Range Interpretation Comments Creatinine Lvl (test code = Creatinine 0.82 0.50-1.40 Lvl) [facility] CenterCfvxyajOWYBJZAZNAOD0860-26-63 09:50:00 Test Item Value Reference Range Interpretation Comments Glucose Lvl (test code = Glucose Lvl) 99 70-99 [facility] CenterRsvrhurICPAAUTLLWTY3444-55-81 09:50:00 Test Item Value Reference Range Interpretation Comments AGAP (test code = AGAP) 10.5 10.0-20.0 [facility] NortheastKxuaiqwTLTISHASVV5073-50-46 09:50:00 Test Item Value Reference Range Interpretation Comments RBC (test code = RBC) 3.56 4.20-5.40 [facility] NortheastQmejdltKNHXPOAJYQ2526-81-37 09:50:00 Test Item Value Reference Range Interpretation Comments WBC (test code = WBC) 8.1 3.7-10.4 [facility] NortheastGenfoesFBOPPBNJQJ4492-77-46 09:50:00 Test Item Value Reference Range Interpretation Comments Hct (test code = Hct) 33.2 36.0-48.0 [facility] NortheastYcoimsiSKDPBVNPNB4592-61-49 09:50:00 Test Item Value Reference Range Interpretation Comments Hgb (test code = Hgb) 10.9 12.0-16.0 [facility] NortheastWxlaulyHZNRGBRNLZ8016-79-65 09:50:00 Test Item Value Reference Range Interpretation Comments MCH (test code = MCH) 30.5 pg 27.0-31.0 [facility] NortheastYswhvgvIIBPLUELDL6325-99-27 09:50:00 Test Item Value Reference Range Interpretation Comments MCV (test code = MCV) 93.3 80.0-98.0 [facility] NortheastOqlbzglPIFMZNJWUD2027-93-41 09:50:00 Test Item Value Reference Range Interpretation Comments MCHC (test code = MCHC) 32.7 32.0-36.0 [facility] NortheastAndccyrQUOMUBTEJE4623-01-00 09:50:00 Test Item Value Reference Range Interpretation Comments Platelet (test code = Platelet) 415 133-450 [facility] NortheastJpuctwaBKIMNRJWIQ0034-87-34 09:50:00 Test Item Value Reference Range Interpretation Comments MPV (test code = MPV) 7.1 7.4-10.4 [facility] NortheastGnxmbcuFFCLXLRIKN7690-98-12 09:50:00 Test Item Value Reference Range Interpretation Comments RDW (test code = RDW) 15.3 11.5-14.5 [facility] CenterFusnyilJOPKIIDAGPSO4361-94-58 09:50:00 Test Item Value Reference Range Interpretation Comments CO2 (test code = CO2) 32 24-32 [facility] CenterTkvkxxbTLLUTJBUDZIT6844-92-56 09:50:00 Test Item Value Reference Range Interpretation Comments Chloride Lvl (test code = Chloride Lvl) 99 95-109 [facility] CenterZhtvexrVVNRLXQWCDJU6147-14-97 09:50:00 Test Item Value Reference Range Interpretation Comments Potassium Lvl (test code = Potassium 3.5 3.5-5.1 Lvl) [facility] CenterEqyqajxTLQHRGGZGUTR6218-41-51 09:50:00 Test Item Value Reference Range Interpretation Comments eGFR (test code = eGFR) 66 [facility] CenterKylymljUMFTXNWMJBOU8792-61-19 09:50:00 Test Item Value Reference Range Interpretation Comments Calcium Lvl (test code = Calcium Lvl) 8.9 8.5-10.5 [facility] CenterHensfqwNTUFMSXUZDUI3679-66-86 09:50:00 Test Item Value Reference Range Interpretation Comments BUN (test code = BUN) 18 7-22 [facility] CenterNmfpxmxZZTAKOEDFNZD8630-80-47 09:50:00 Test Item Value Reference Range Interpretation Comments Sodium Lvl (test code = Sodium Lvl) 138 135-145 [facility] CenterKzbzxvfSQBBSPQUGXIH5140-22-77 09:50:00 Test Item Value Reference Range Interpretation Comments Creatinine Lvl (test code = Creatinine 0.82 0.50-1.40 Lvl) [facility] CenterJgdkhpqRPDCCPRCQAAH3012-17-53 09:50:00 Test Item Value Reference Range Interpretation Comments Glucose Lvl (test code = Glucose Lvl) 99 70-99 [facility] CenterDzagkrlTCZFCZUPVDKK4800-04-97 09:50:00 Test Item Value Reference Range Interpretation Comments AGAP (test code = AGAP) 10.5 10.0-20.0 [facility] NortheastNnifmmlZGGGIWNYXW5913-70-46 09:50:00 Test Item Value Reference Range Interpretation Comments RBC (test code = RBC) 3.56 4.20-5.40 [facility] NortheastFipkpnhUIVWVNTBFZ8676-57-35 09:50:00 Test Item Value Reference Range Interpretation Comments WBC (test code = WBC) 8.1 3.7-10.4 [facility] NortheastLxvxztkJNZMEFJXSC0688-88-35 09:50:00 Test Item Value Reference Range Interpretation Comments Hct (test code = Hct) 33.2 36.0-48.0 [facility] NortheastKiouzojWMARVMCVCT7187-02-03 09:50:00 Test Item Value Reference Range Interpretation Comments Hgb (test code = Hgb) 10.9 12.0-16.0 [facility] NortheastWjukypdCOFIGDTFPP6375-24-42 09:50:00 Test Item Value Reference Range Interpretation Comments MCH (test code = MCH) 30.5 pg 27.0-31.0 [facility] NortheastTrzbvtcUEVOKINUDX1356-40-71 09:50:00 Test Item Value Reference Range Interpretation Comments MCV (test code = MCV) 93.3 80.0-98.0 [facility] NortheastOajtuvpNIJQSNEQXS6556-05-89 09:50:00 Test Item Value Reference Range Interpretation Comments MCHC (test code = MCHC) 32.7 32.0-36.0 [facility] NortheastZsajmrmVCHXGSKPBU8573-17-53 09:50:00 Test Item Value Reference Range Interpretation Comments Platelet (test code = Platelet) 415 133-450 [facility] NortheastOvivskpDGQMAQGVUQ7565-50-51 09:50:00 Test Item Value Reference Range Interpretation Comments MPV (test code = MPV) 7.1 7.4-10.4 [facility] NortheastZjqxzemVXDMLGUADT7744-07-99 09:50:00 Test Item Value Reference Range Interpretation Comments RDW (test code = RDW) 15.3 11.5-14.5 [facility] CenterQpqdfjnADJVHFEEDFQL4601-72-11 09:50:00 Test Item Value Reference Range Interpretation Comments CO2 (test code = CO2) 32 24-32 [facility] CenterXosvaesLJMKXHZWPSUN0347-90-82 09:50:00 Test Item Value Reference Range Interpretation Comments Chloride Lvl (test code = Chloride Lvl) 99 95-109 [facility] CenterAuxobcsDAVWFCGMZCID4422-48-13 09:50:00 Test Item Value Reference Range Interpretation Comments Potassium Lvl (test code = Potassium 3.5 3.5-5.1 Lvl) [facility] CenterVzttkaaSFOPZHPCHSRF1517-61-94 09:50:00 Test Item Value Reference Range Interpretation Comments eGFR (test code = eGFR) 66 [facility] CenterRbjbziaPNOEAARXRLFU7286-84-07 09:50:00 Test Item Value Reference Range Interpretation Comments Calcium Lvl (test code = Calcium Lvl) 8.9 8.5-10.5 [facility] CenterBplnhzlDUAFGGVSWBTT4843-97-31 09:50:00 Test Item Value Reference Range Interpretation Comments BUN (test code = BUN) 18 7-22 [facility] CenterIvvptghVPKWBBONAWXE1382-00-11 09:50:00 Test Item Value Reference Range Interpretation Comments Sodium Lvl (test code = Sodium Lvl) 138 135-145 [facility] CenterAtdenxeRAVEBEJCGCFC7211-98-73 09:50:00 Test Item Value Reference Range Interpretation Comments Creatinine Lvl (test code = Creatinine 0.82 0.50-1.40 Lvl) [facility] CenterRvjgktzKGCXVOYMFPEM3135-60-99 09:50:00 Test Item Value Reference Range Interpretation Comments Glucose Lvl (test code = Glucose Lvl) 99 70-99 [facility] CenterIglzsxlRAWVBRKDJMUT4283-25-02 09:50:00 Test Item Value Reference Range Interpretation Comments AGAP (test code = AGAP) 10.5 10.0-20.0 [facility] NortheastZbaopmbLVNCCKRLEM3967-70-19 09:50:00 Test Item Value Reference Range Interpretation Comments RBC (test code = RBC) 3.56 4.20-5.40 [facility] NortheastCwvrkafCEFYYVLVDK2315-40-44 09:50:00 Test Item Value Reference Range Interpretation Comments WBC (test code = WBC) 8.1 3.7-10.4 [facility] NortheastWeopyeeNCNXSHKFVF9189-99-35 09:50:00 Test Item Value Reference Range Interpretation Comments Hct (test code = Hct) 33.2 36.0-48.0 [facility] NortheastDqprhfuLKREYRSACJ9782-68-20 09:50:00 Test Item Value Reference Range Interpretation Comments Hgb (test code = Hgb) 10.9 12.0-16.0 [facility] NortheastQahvxjkKGNERQTAMU7954-92-62 09:50:00 Test Item Value Reference Range Interpretation Comments MCH (test code = MCH) 30.5 pg 27.0-31.0 [facility] NortheastQdzdwnoBZHFLFXHBU0193-30-12 09:50:00 Test Item Value Reference Range Interpretation Comments MCV (test code = MCV) 93.3 80.0-98.0 [facility] NortheastYnjhnrwXMOMIGRDMA8254-76-83 09:50:00 Test Item Value Reference Range Interpretation Comments MCHC (test code = MCHC) 32.7 32.0-36.0 [facility] NortheastGitvnuwCRSHUXZVAG8738-52-54 09:50:00 Test Item Value Reference Range Interpretation Comments Platelet (test code = Platelet) 415 133-450 [facility] NortheastYwbrgadNBLXUSCHRT3358-48-21 09:50:00 Test Item Value Reference Range Interpretation Comments MPV (test code = MPV) 7.1 7.4-10.4 [facility] NortheastTyczcnqJETUVCTHWH9078-62-46 09:50:00 Test Item Value Reference Range Interpretation Comments RDW (test code = RDW) 15.3 11.5-14.5 [facility] CenterFaefqydWHDHRISNUABR3906-27-15 09:50:00 Test Item Value Reference Range Interpretation Comments CO2 (test code = CO2) 32 24-32 [facility] CenterUhjhqzkTGENCZUPQUTL7810-92-38 09:50:00 Test Item Value Reference Range Interpretation Comments Chloride Lvl (test code = Chloride Lvl) 99 95-109 [facility] CenterZyjduabWZYMYZGKGVUD4562-07-79 09:50:00 Test Item Value Reference Range Interpretation Comments Potassium Lvl (test code = Potassium 3.5 3.5-5.1 Lvl) [facility] CenterQhwhnvwJCSIKPZOHPHV6657-01-56 09:50:00 Test Item Value Reference Range Interpretation Comments eGFR (test code = eGFR) 66 [facility] CenterXzionrwRPMLOHCJKBUH4535-85-42 09:50:00 Test Item Value Reference Range Interpretation Comments Calcium Lvl (test code = Calcium Lvl) 8.9 8.5-10.5 [facility] CenterCommossOGZMOPVKLMBR8768-05-06 09:50:00 Test Item Value Reference Range Interpretation Comments BUN (test code = BUN) 18 7-22 [facility] CenterQgtinomZHHRIMCKKZGS4380-67-03 09:50:00 Test Item Value Reference Range Interpretation Comments Sodium Lvl (test code = Sodium Lvl) 138 135-145 [facility] CenterBtlbbxeKTFZBUATNBJF0488-45-97 09:50:00 Test Item Value Reference Range Interpretation Comments Creatinine Lvl (test code = Creatinine 0.82 0.50-1.40 Lvl) [facility]FlfkrqxLGFIUPUCYQDD8940-14-54 09:50:00 Test Item Value Reference Range Interpretation Comments Glucose Lvl (test code = Glucose Lvl) 99 70-99 [facility] CenterAdpgnjrFNVYVXINUKVT6754-27-24 09:50:00 Test Item Value Reference Range Interpretation Comments AGAP (test code = AGAP) 10.5 10.0-20.0 [facility]MqoqanzKCTWGLLMRR2325-42-44 09:50:00 Test Item Value Reference Range Interpretation Comments RBC (test code = RBC) 3.56 4.20-5.40 [facility]MkdxnwdKJKXAQKXDH5670-49-73 09:50:00 Test Item Value Reference Range Interpretation Comments WBC (test code = WBC) 8.1 3.7-10.4 [facility] NortheastXueacntLVYYPAOAGG1048-85-48 09:50:00 Test Item Value Reference Range Interpretation Comments Hct (test code = Hct) 33.2 36.0-48.0 [facility] NortheastEethaeoEUCRKFLPBG6576-65-54 09:50:00 Test Item Value Reference Range Interpretation Comments Hgb (test code = Hgb) 10.9 12.0-16.0 [facility] NortheastCrhcdwsIWKIHWCTZP0881-01-13 09:50:00 Test Item Value Reference Range Interpretation Comments MCH (test code = MCH) 30.5 pg 27.0-31.0 [facility] NortheastTwnbgvcJJLZMOPLTO5382-99-55 09:50:00 Test Item Value Reference Range Interpretation Comments MCV (test code = MCV) 93.3 80.0-98.0 [facility] NortheastMyxhzbfKDVWAYQRJS0490-75-29 09:50:00 Test Item Value Reference Range Interpretation Comments MCHC (test code = MCHC) 32.7 32.0-36.0 [facility] NortheastXremnvnMBKTKWPJZK8678-28-67 09:50:00 Test Item Value Reference Range Interpretation Comments Platelet (test code = Platelet) 415 133-450 [facility] NortheastDnetvznCWQOHSBJBU8417-42-96 09:50:00 Test Item Value Reference Range Interpretation Comments MPV (test code = MPV) 7.1 7.4-10.4 [facility] NortheastArwvagoFFYECYYGIN2945-47-59 09:50:00 Test Item Value Reference Range Interpretation Comments RDW (test code = RDW) 15.3 11.5-14.5 [facility] CenterRhcrcnuGKTMCUAOUTTD6526-05-62 09:50:00 Test Item Value Reference Range Interpretation Comments CO2 (test code = CO2) 32 24-32 [facility] CenterDnovowrDMAKQZTOPVTY7084-76-00 09:50:00 Test Item Value Reference Range Interpretation Comments Chloride Lvl (test code = Chloride Lvl) 99 95-109 [facility] CenterDgxvxdjULJGSSNTVMHW7475-34-04 09:50:00 Test Item Value Reference Range Interpretation Comments Potassium Lvl (test code = Potassium 3.5 3.5-5.1 Lvl) [facility] CenterKmxbyajVBGNDCURZMCG0040-51-06 09:50:00 Test Item Value Reference Range Interpretation Comments eGFR (test code = eGFR) 66 [facility] CenterQbnbomqXRNRZILWIVPW6251-28-61 09:50:00 Test Item Value Reference Range Interpretation Comments Calcium Lvl (test code = Calcium Lvl) 8.9 8.5-10.5 [facility] CenterDctqbvnAQBMJZDTLKNQ1727-69-68 09:50:00 Test Item Value Reference Range Interpretation Comments BUN (test code = BUN) 18 7-22 [facility] CenterBprbexyABGAYPHRSZGN5267-45-29 09:50:00 Test Item Value Reference Range Interpretation Comments Sodium Lvl (test code = Sodium Lvl) 138 135-145 [facility] CenterFnffgmyABQZULKHCJOE7871-59-77 09:50:00 Test Item Value Reference Range Interpretation Comments Creatinine Lvl (test code = Creatinine 0.82 0.50-1.40 Lvl) [facility] CenterNexyfxqHRCRQCILWCPD1460-59-38 09:50:00 Test Item Value Reference Range Interpretation Comments Glucose Lvl (test code = Glucose Lvl) 99 70-99 [facility] CenterWqgseeaWZMZVINPEKRY9349-42-28 09:50:00 Test Item Value Reference Range Interpretation Comments AGAP (test code = AGAP) 10.5 10.0-20.0 [facility] NortheastUpnnfsyXDFKPTTVVQ5187-65-27 09:50:00 Test Item Value Reference Range Interpretation Comments RBC (test code = RBC) 3.56 4.20-5.40 [facility] NortheastJvfxqcbUTMZRPHCPD9753-08-12 09:50:00 Test Item Value Reference Range Interpretation Comments WBC (test code = WBC) 8.1 3.7-10.4 [facility] NortheastQzaggulHWTHNVPNZI5556-52-73 09:50:00 Test Item Value Reference Range Interpretation Comments Hct (test code = Hct) 33.2 36.0-48.0 [facility] NortheastHlnsivdGXZUNVGOJY4220-24-77 09:50:00 Test Item Value Reference Range Interpretation Comments Hgb (test code = Hgb) 10.9 12.0-16.0 [facility] NortheastJfzvibwDSSZHBWQFD2431-71-44 09:50:00 Test Item Value Reference Range Interpretation Comments MCH (test code = MCH) 30.5 pg 27.0-31.0 [facility] NortheastSevcfteJIMKPQFFCU6942-81-77 09:50:00 Test Item Value Reference Range Interpretation Comments MCV (test code = MCV) 93.3 80.0-98.0 [facility] NortheastWmsgyjzGSZVNMVOHO1902-51-65 09:50:00 Test Item Value Reference Range Interpretation Comments MCHC (test code = MCHC) 32.7 32.0-36.0 [facility] NortheastWjbpmnfIQMXMINQGD4480-37-12 09:50:00 Test Item Value Reference Range Interpretation Comments Platelet (test code = Platelet) 415 133-450 [facility] NortheastQbodxquMREEPXUHUA4731-67-00 09:50:00 Test Item Value Reference Range Interpretation Comments MPV (test code = MPV) 7.1 7.4-10.4 [facility] NortheastEooakilXLQOFQDAXO6377-87-87 09:50:00 Test Item Value Reference Range Interpretation Comments RDW (test code = RDW) 15.3 11.5-14.5 [facility] CenterWfydcgpJWUNXBSHGAFO0529-89-95 09:50:00 Test Item Value Reference Range Interpretation Comments CO2 (test code = CO2) 32 24-32 [facility] CenterUqjedbsQXMYYLSTYJOL3396-97-49 09:50:00 Test Item Value Reference Range Interpretation Comments Chloride Lvl (test code = Chloride Lvl) 99 95-109 [facility] CenterNrymoefIPFIGXRRQWAW6641-94-67 09:50:00 Test Item Value Reference Range Interpretation Comments Potassium Lvl (test code = Potassium 3.5 3.5-5.1 Lvl) [facility] CenterMpdagzcSMHWKKCLDCOI6053-83-33 09:50:00 Test Item Value Reference Range Interpretation Comments eGFR (test code = eGFR) 66 [facility] CenterJidcrerAVRASQONQZTM0055-52-69 09:50:00 Test Item Value Reference Range Interpretation Comments Calcium Lvl (test code = Calcium Lvl) 8.9 8.5-10.5 [facility] CenterGgjgrkjFTJFAFCBEBSO0252-44-39 09:50:00 Test Item Value Reference Range Interpretation Comments BUN (test code = BUN) 18 7-22 [facility] CenterOnwpfpvEXHZAEKCDBSX0776-93-36 09:50:00 Test Item Value Reference Range Interpretation Comments Sodium Lvl (test code = Sodium Lvl) 138 135-145 [facility] CenterGnupsdbWKUACJJEZOBR8693-89-84 09:50:00 Test Item Value Reference Range Interpretation Comments Creatinine Lvl (test code = Creatinine 0.82 0.50-1.40 Lvl) [facility] CenterWsihbsrUGXFEYANIWQM1051-76-58 09:50:00 Test Item Value Reference Range Interpretation Comments Glucose Lvl (test code = Glucose Lvl) 99 70-99 [facility] CenterIotneikOOSZORTIGYGB7855-65-14 09:50:00 Test Item Value Reference Range Interpretation Comments AGAP (test code = AGAP) 10.5 10.0-20.0 [facility]XivswgsUFEDZRLCRQ7222-99-58 09:50:00 Test Item Value Reference Range Interpretation Comments RBC (test code = RBC) 3.56 4.20-5.40 [facility] NortheastEtgydiwGEWLACWDPL3876-31-47 09:50:00 Test Item Value Reference Range Interpretation Comments WBC (test code = WBC) 8.1 3.7-10.4 [facility] NortheastJqluvshXFFUTFUBCD5537-74-92 09:50:00 Test Item Value Reference Range Interpretation Comments Hct (test code = Hct) 33.2 36.0-48.0 [facility] NortheastHcophnaRTNBILMOGY0948-89-08 09:50:00 Test Item Value Reference Range Interpretation Comments Hgb (test code = Hgb) 10.9 12.0-16.0 [facility] NortheastFomhsqkWIDGKHLIJQ3128-26-57 09:50:00 Test Item Value Reference Range Interpretation Comments MCH (test code = MCH) 30.5 pg 27.0-31.0 [facility] NortheastWakimbdVCIYFESARM4491-91-74 09:50:00 Test Item Value Reference Range Interpretation Comments MCV (test code = MCV) 93.3 80.0-98.0 [facility] NortheastLutauaiLNPRGHPXBR2705-67-72 09:50:00 Test Item Value Reference Range Interpretation Comments MCHC (test code = MCHC) 32.7 32.0-36.0 [facility] NortheastInqcqlrRESFYAAUAR0942-11-81 09:50:00 Test Item Value Reference Range Interpretation Comments Platelet (test code = Platelet) 415 133-450 [facility] NortheastDgbxjttSUUSIQULRK7408-34-80 09:50:00 Test Item Value Reference Range Interpretation Comments MPV (test code = MPV) 7.1 7.4-10.4 [facility] NortheastRcheabfOGNPYARVIW8430-20-35 09:50:00 Test Item Value Reference Range Interpretation Comments RDW (test code = RDW) 15.3 11.5-14.5 [facility] CenterKputzdeRMBJWYUUCMGP7219-33-86 09:50:00 Test Item Value Reference Range Interpretation Comments CO2 (test code = CO2) 32 24-32 [facility] CenterOicksrnLSIOGMRGBNEL0735-24-38 09:50:00 Test Item Value Reference Range Interpretation Comments Chloride Lvl (test code = Chloride Lvl) 99 95-109 [facility] CenterZdpqlpzYOBMBWDBKGOB1262-66-50 09:50:00 Test Item Value Reference Range Interpretation Comments Potassium Lvl (test code = Potassium 3.5 3.5-5.1 Lvl) [facility] CenterVnmzywjBIMZKZFLPQLZ8378-71-44 09:50:00 Test Item Value Reference Range Interpretation Comments eGFR (test code = eGFR) 66 [facility] CenterFukxtmiJDIMJPOLVHLQ1438-28-06 09:50:00 Test Item Value Reference Range Interpretation Comments Calcium Lvl (test code = Calcium Lvl) 8.9 8.5-10.5 [facility] CenterVifswraTKPMJBZXMFCW5760-17-29 09:50:00 Test Item Value Reference Range Interpretation Comments BUN (test code = BUN) 18 7-22 [facility] CenterBeflmmnUZBPVDOJNCPT3017-14-86 09:50:00 Test Item Value Reference Range Interpretation Comments Sodium Lvl (test code = Sodium Lvl) 138 135-145 [facility] CenterHfwmnjqYGZQCXIPUHMY9770-66-61 09:50:00 Test Item Value Reference Range Interpretation Comments Creatinine Lvl (test code = Creatinine 0.82 0.50-1.40 Lvl) [facility] CenterGjduucrCQTYLRSRZMLI3592-44-89 09:50:00 Test Item Value Reference Range Interpretation Comments Glucose Lvl (test code = Glucose Lvl) 99 70-99 [facility] CenterYymijfkNCFAMWALQOCA7029-88-41 09:50:00 Test Item Value Reference Range Interpretation Comments AGAP (test code = AGAP) 10.5 10.0-20.0 [facility] NortheastGsmcjecJAYUQQKBNW1277-27-25 09:50:00 Test Item Value Reference Range Interpretation Comments RBC (test code = RBC) 3.56 4.20-5.40 [facility] NortheastAluuxkgCZEUHGMBUR5634-02-45 09:50:00 Test Item Value Reference Range Interpretation Comments WBC (test code = WBC) 8.1 3.7-10.4 [facility] NortheastAwdvxteCQOINNUIQA3138-88-02 09:50:00 Test Item Value Reference Range Interpretation Comments Hct (test code = Hct) 33.2 36.0-48.0 [facility] NortheastZvblbscYOFDOXLTID5098-37-10 09:50:00 Test Item Value Reference Range Interpretation Comments Hgb (test code = Hgb) 10.9 12.0-16.0 [facility] NortheastNeunigkHFGAPUNLBP4291-79-41 09:50:00 Test Item Value Reference Range Interpretation Comments MCH (test code = MCH) 30.5 pg 27.0-31.0 [facility] NortheastZrexmfjVICRBRWIJA8787-74-35 09:50:00 Test Item Value Reference Range Interpretation Comments MCV (test code = MCV) 93.3 80.0-98.0 [facility] NortheastOlqweedRLHHUSYLOE5937-86-54 09:50:00 Test Item Value Reference Range Interpretation Comments MCHC (test code = MCHC) 32.7 32.0-36.0 [facility] NortheastGbhbtpeNPEKPXNULR9985-53-49 09:50:00 Test Item Value Reference Range Interpretation Comments Platelet (test code = Platelet) 415 133-450 [facility] NortheastJpidrrxMGUVEBFYZN2889-25-86 09:50:00 Test Item Value Reference Range Interpretation Comments MPV (test code = MPV) 7.1 7.4-10.4 [facility] NortheastEfdnhxfMDXGFKRAGX7459-65-07 09:50:00 Test Item Value Reference Range Interpretation Comments RDW (test code = RDW) 15.3 11.5-14.5 [facility] CenterRtcpvfpXTMSNSDZAQSF3078-67-14 09:50:00 Test Item Value Reference Range Interpretation Comments CO2 (test code = CO2) 32 24-32 [facility] CenterNlzonwoKTSJNRUIPXUA3903-36-94 09:50:00 Test Item Value Reference Range Interpretation Comments Chloride Lvl (test code = Chloride Lvl) 99 95-109 [facility] CenterGffbsopHWAABXBDYCQT0720-11-45 09:50:00 Test Item Value Reference Range Interpretation Comments Potassium Lvl (test code = Potassium 3.5 3.5-5.1 Lvl) [facility] CenterUodvojwJXDQFHTDXFEB2432-99-13 09:50:00 Test Item Value Reference Range Interpretation Comments eGFR (test code = eGFR) 66 [facility] CenterOrrrstoQQMWHENONXJJ6159-47-24 09:50:00 Test Item Value Reference Range Interpretation Comments Calcium Lvl (test code = Calcium Lvl) 8.9 8.5-10.5 [facility] CenterBtxkszpCYFDJDJJHVRK1276-84-88 09:50:00 Test Item Value Reference Range Interpretation Comments BUN (test code = BUN) 18 7-22 [facility] CenterDaqqubiQZTKMHAKJQBX3709-39-03 09:50:00 Test Item Value Reference Range Interpretation Comments Sodium Lvl (test code = Sodium Lvl) 138 135-145 [facility] CenterCbhvrnxVHWMNXZJPBCI3658-88-76 09:50:00 Test Item Value Reference Range Interpretation Comments Creatinine Lvl (test code = Creatinine 0.82 0.50-1.40 Lvl) [facility] CenterHjawrrdPZMSWBNLDZCW6760-89-01 09:50:00 Test Item Value Reference Range Interpretation Comments Glucose Lvl (test code = Glucose Lvl) 99 70-99 [facility] CenterNpmwmexDUCQWTYGZKIF7906-21-56 09:50:00 Test Item Value Reference Range Interpretation Comments AGAP (test code = AGAP) 10.5 10.0-20.0 [facility] NortheastZiiecupSVMYWNZEGN9601-72-24 09:50:00 Test Item Value Reference Range Interpretation Comments RBC (test code = RBC) 3.56 4.20-5.40 [facility] NortheastEimruyaWLHFUXBHNM8507-94-29 09:50:00 Test Item Value Reference Range Interpretation Comments WBC (test code = WBC) 8.1 3.7-10.4 [facility] NortheastLayxvjlOWXPVFPZDG7421-62-72 09:50:00 Test Item Value Reference Range Interpretation Comments Hct (test code = Hct) 33.2 36.0-48.0 [facility] NortheastGmntfbxRHFUSDWUWD1453-30-51 09:50:00 Test Item Value Reference Range Interpretation Comments Hgb (test code = Hgb) 10.9 12.0-16.0 [facility] NortheastZgmaakwRKPDRUXEKR9319-82-71 09:50:00 Test Item Value Reference Range Interpretation Comments MCH (test code = MCH) 30.5 pg 27.0-31.0 [facility] NortheastHagkoohWGQAJYUUBU8653-52-19 09:50:00 Test Item Value Reference Range Interpretation Comments MCV (test code = MCV) 93.3 80.0-98.0 [facility] NortheastAkecnelZBHRAULZTY6859-49-26 09:50:00 Test Item Value Reference Range Interpretation Comments MCHC (test code = MCHC) 32.7 32.0-36.0 [facility] NortheastRvqzmclRMQQUQGZRO7246-98-66 09:50:00 Test Item Value Reference Range Interpretation Comments Platelet (test code = Platelet) 415 133-450 [facility] NortheastWkscerrQTFEYLLOGW4838-36-27 09:50:00 Test Item Value Reference Range Interpretation Comments MPV (test code = MPV) 7.1 7.4-10.4 [facility] NortheastCjntvejUNEUEPXCEP0989-38-02 09:50:00 Test Item Value Reference Range Interpretation Comments RDW (test code = RDW) 15.3 11.5-14.5 [facility] CenterXqaylxzGNKHQHGWKAWN7476-70-61 09:50:00 Test Item Value Reference Range Interpretation Comments CO2 (test code = CO2) 32 24-32 [facility] CenterPgvanmnOSPPSPIEJGEV4103-28-44 09:50:00 Test Item Value Reference Range Interpretation Comments Chloride Lvl (test code = Chloride Lvl) 99 95-109 [facility] CenterKschieiKOYLUQXFKPBE3946-02-23 09:50:00 Test Item Value Reference Range Interpretation Comments Potassium Lvl (test code = Potassium 3.5 3.5-5.1 Lvl) [facility] CenterZqxcsoyIUDMRNEDJKSB7494-89-11 09:50:00 Test Item Value Reference Range Interpretation Comments eGFR (test code = eGFR) 66 [facility] CenterUnwblrfMNFCBNAKWKPZ0562-36-16 09:50:00 Test Item Value Reference Range Interpretation Comments Calcium Lvl (test code = Calcium Lvl) 8.9 8.5-10.5 [facility] CenterDtoptipZDFSJVDVQLYO5760-61-29 09:50:00 Test Item Value Reference Range Interpretation Comments BUN (test code = BUN) 18 7-22 [facility] CenterRkykupeOTIDMOZLFEPV1407-61-45 09:50:00 Test Item Value Reference Range Interpretation Comments Sodium Lvl (test code = Sodium Lvl) 138 135-145 [facility] CenterIrqaeuaYVJSHFPVZUHS7060-21-72 09:50:00 Test Item Value Reference Range Interpretation Comments Creatinine Lvl (test code = Creatinine 0.82 0.50-1.40 Lvl) [facility] CenterWdrzitkFPQLXHVHEHAC5278-80-38 09:50:00 Test Item Value Reference Range Interpretation Comments Glucose Lvl (test code = Glucose Lvl) 99 70-99 [facility] CenterSyqaypeDWDZUQELKZCJ5428-63-01 09:50:00 Test Item Value Reference Range Interpretation Comments AGAP (test code = AGAP) 10.5 10.0-20.0 [facility] NortheastDiuvhdyIOMGUOYHRW2864-21-02 09:50:00 Test Item Value Reference Range Interpretation Comments RBC (test code = RBC) 3.56 4.20-5.40 [facility] NortheastUqoibohMUWIGYXTVK4496-52-47 09:50:00 Test Item Value Reference Range Interpretation Comments WBC (test code = WBC) 8.1 3.7-10.4 [facility] NortheastBijmsrzGIYXYVJGMB4683-18-00 09:50:00 Test Item Value Reference Range Interpretation Comments Hct (test code = Hct) 33.2 36.0-48.0 [facility] NortheastDtxisgrTAOSXDNJHC6381-59-36 09:50:00 Test Item Value Reference Range Interpretation Comments Hgb (test code = Hgb) 10.9 12.0-16.0 [facility] NortheastFhqdmjcOOEMPDCANR4102-48-65 09:50:00 Test Item Value Reference Range Interpretation Comments MCH (test code = MCH) 30.5 pg 27.0-31.0 [facility] NortheastXychvqtNKZJHNIEPZ3447-50-55 09:50:00 Test Item Value Reference Range Interpretation Comments MCV (test code = MCV) 93.3 80.0-98.0 [facility] NortheastSwwjaxiQRZPCSZMQO0808-25-82 09:50:00 Test Item Value Reference Range Interpretation Comments MCHC (test code = MCHC) 32.7 32.0-36.0 [facility] NortheastIpcngnoUVEPXBGGPM9604-53-99 09:50:00 Test Item Value Reference Range Interpretation Comments Platelet (test code = Platelet) 415 133-450 [facility] NortheastLedklqqNJLOGEHUYF4670-79-09 09:50:00 Test Item Value Reference Range Interpretation Comments MPV (test code = MPV) 7.1 7.4-10.4 [facility] NortheastPlfdajtSCSUHKEOSV9305-79-62 09:50:00 Test Item Value Reference Range Interpretation Comments RDW (test code = RDW) 15.3 11.5-14.5 [facility] CenterJllqbevMBNLZXIAORPS6363-97-65 09:50:00 Test Item Value Reference Range Interpretation Comments CO2 (test code = CO2) 32 24-32 [facility] CenterKurpfmhLDXJQEEHKMLO9380-15-82 09:50:00 Test Item Value Reference Range Interpretation Comments Chloride Lvl (test code = Chloride Lvl) 99 95-109 [facility] CenterEzbspqtCRJTYXPRZWSW1466-27-92 09:50:00 Test Item Value Reference Range Interpretation Comments Potassium Lvl (test code = Potassium 3.5 3.5-5.1 Lvl) [facility] CenterWpmrkabFEOYCGVBVLFJ4227-63-71 09:50:00 Test Item Value Reference Range Interpretation Comments eGFR (test code = eGFR) 66 [facility] CenterSlllzhoCCBIMDUUIMVJ9398-52-31 09:50:00 Test Item Value Reference Range Interpretation Comments Calcium Lvl (test code = Calcium Lvl) 8.9 8.5-10.5 [facility] CenterHpkliciLVXVNSMAYNJE7101-44-11 09:50:00 Test Item Value Reference Range Interpretation Comments BUN (test code = BUN) 18 7-22 [facility] CenterFnmmtodYOMZSYJDKYRP9021-32-75 09:50:00 Test Item Value Reference Range Interpretation Comments Sodium Lvl (test code = Sodium Lvl) 138 135-145 [facility] CenterHorcjwrDEWVEECWAARD3475-89-46 09:50:00 Test Item Value Reference Range Interpretation Comments Creatinine Lvl (test code = Creatinine 0.82 0.50-1.40 Lvl) [facility] CenterQdcsorqCAUUPJLYHEQQ1574-08-45 09:50:00 Test Item Value Reference Range Interpretation Comments Glucose Lvl (test code = Glucose Lvl) 99 70-99 [facility] CenterJffzpenDPVQOXQZNKOB5250-57-57 09:50:00 Test Item Value Reference Range Interpretation Comments AGAP (test code = AGAP) 10.5 10.0-20.0 [facility] NortheastMskopjhIFJPEZVWWB6057-30-64 09:50:00 Test Item Value Reference Range Interpretation Comments RBC (test code = RBC) 3.56 4.20-5.40 [facility] NortheastAradieeQWVAKHBEEA8573-21-32 09:50:00 Test Item Value Reference Range Interpretation Comments WBC (test code = WBC) 8.1 3.7-10.4 [facility] NortheastFtgcgsmUGXLIDQZQT5192-26-63 09:50:00 Test Item Value Reference Range Interpretation Comments Hct (test code = Hct) 33.2 36.0-48.0 [facility] NortheastFbafatzMBIPBEGFJI1693-18-45 09:50:00 Test Item Value Reference Range Interpretation Comments Hgb (test code = Hgb) 10.9 12.0-16.0 [facility] NortheastApxxyniYQAHJHTSDR5414-20-51 09:50:00 Test Item Value Reference Range Interpretation Comments MCH (test code = MCH) 30.5 pg 27.0-31.0 [facility] NortheastTqlkxelOMFRQIVRAZ4322-04-61 09:50:00 Test Item Value Reference Range Interpretation Comments MCV (test code = MCV) 93.3 80.0-98.0 [facility] NortheastPdxalywOELQGUPQCH0039-12-14 09:50:00 Test Item Value Reference Range Interpretation Comments MCHC (test code = MCHC) 32.7 32.0-36.0 [facility] NortheastTpsyyjpVQFMVEBTPH8554-98-04 09:50:00 Test Item Value Reference Range Interpretation Comments Platelet (test code = Platelet) 415 133-450 [facility] NortheastCchnscyYGTYYXZVPK1945-90-69 09:50:00 Test Item Value Reference Range Interpretation Comments MPV (test code = MPV) 7.1 7.4-10.4 [facility] NortheastKqajlfiTPCOTCVJDO8442-94-73 09:50:00 Test Item Value Reference Range Interpretation Comments RDW (test code = RDW) 15.3 11.5-14.5 [facility] CenterXvvtiyzKWKAIHPNTPNL2279-13-29 09:50:00 Test Item Value Reference Range Interpretation Comments CO2 (test code = CO2) 32 24-32 [facility] CenterWcfilwqRDOLDYHIWSDA3672-91-99 09:50:00 Test Item Value Reference Range Interpretation Comments Chloride Lvl (test code = Chloride Lvl) 99 95-109 [facility] CenterTtquqrmGBZUOGAIUNMV9855-49-94 09:50:00 Test Item Value Reference Range Interpretation Comments Potassium Lvl (test code = Potassium 3.5 3.5-5.1 Lvl) [facility] CenterWwigujbOXZLILDXWWHB6923-04-72 09:50:00 Test Item Value Reference Range Interpretation Comments eGFR (test code = eGFR) 66 [facility] CenterZbskvgbMDOMJDLAGCRF5644-04-05 09:50:00 Test Item Value Reference Range Interpretation Comments Calcium Lvl (test code = Calcium Lvl) 8.9 8.5-10.5 [facility] CenterRlqmzhnJHENBYYYFNGW4631-45-73 09:50:00 Test Item Value Reference Range Interpretation Comments BUN (test code = BUN) 18 7-22 [facility] CenterVxlgwlvJFFITUGRLHEZ9383-98-73 09:50:00 Test Item Value Reference Range Interpretation Comments Sodium Lvl (test code = Sodium Lvl) 138 135-145 [facility] CenterGajojoiCNEOQQXFUUNY0806-67-36 09:50:00 Test Item Value Reference Range Interpretation Comments Creatinine Lvl (test code = Creatinine 0.82 0.50-1.40 Lvl) [facility] CenterEhxdsgvSXZDBLCYMEKY2214-86-84 09:50:00 Test Item Value Reference Range Interpretation Comments Glucose Lvl (test code = Glucose Lvl) 99 70-99 [facility] CenterJorqfguVQYAESILVNDU3688-59-98 09:50:00 Test Item Value Reference Range Interpretation Comments AGAP (test code = AGAP) 10.5 10.0-20.0 [facility] NortheastVughnjnVZFFHMIULY6082-38-68 09:50:00 Test Item Value Reference Range Interpretation Comments RBC (test code = RBC) 3.56 4.20-5.40 [facility] NortheastUsqirxfBDHFOPZXXI3700-88-81 09:50:00 Test Item Value Reference Range Interpretation Comments WBC (test code = WBC) 8.1 3.7-10.4 [facility] NortheastNjglvhjJWVTZJJUWD6254-39-98 09:50:00 Test Item Value Reference Range Interpretation Comments Hct (test code = Hct) 33.2 36.0-48.0 [facility] NortheastJbqpjcqNWUIEDFSGO4733-69-94 09:50:00 Test Item Value Reference Range Interpretation Comments Hgb (test code = Hgb) 10.9 12.0-16.0 [facility] NortheastEdldxgyHUCVKGCTWM6485-93-62 09:50:00 Test Item Value Reference Range Interpretation Comments MCH (test code = MCH) 30.5 pg 27.0-31.0 [facility] NortheastBpatksoTEEHJAQXAY0387-40-22 09:50:00 Test Item Value Reference Range Interpretation Comments MCV (test code = MCV) 93.3 80.0-98.0 [facility] NortheastMvnfaevFHWYYTYAIA0358-42-28 09:50:00 Test Item Value Reference Range Interpretation Comments MCHC (test code = MCHC) 32.7 32.0-36.0 [facility] NortheastEvttnyhASTSQWAFKJ4819-84-94 09:50:00 Test Item Value Reference Range Interpretation Comments Platelet (test code = Platelet) 415 133-450 [facility] NortheastCgvnqekCDQFVHMENG6150-68-39 09:50:00 Test Item Value Reference Range Interpretation Comments MPV (test code = MPV) 7.1 7.4-10.4 [facility] NortheastEqqbjybLBQDTBMWYZ3999-82-24 09:50:00 Test Item Value Reference Range Interpretation Comments RDW (test code = RDW) 15.3 11.5-14.5 [facility] CenterDtijnymWGOZHLANQMWP1650-80-78 09:50:00 Test Item Value Reference Range Interpretation Comments CO2 (test code = CO2) 32 24-32 [facility] CenterLuhgxtpNFLWDQNQIPQZ3554-58-84 09:50:00 Test Item Value Reference Range Interpretation Comments Chloride Lvl (test code = Chloride Lvl) 99 95-109 [facility] CenterNogvgklCITZBEUYEQBM6769-56-58 09:50:00 Test Item Value Reference Range Interpretation Comments Potassium Lvl (test code = Potassium 3.5 3.5-5.1 Lvl) [facility] CenterWkzcqifZKOWDYFHURQF5161-59-13 09:50:00 Test Item Value Reference Range Interpretation Comments eGFR (test code = eGFR) 66 [facility] CenterLewvnhgHXLKGIODTCKM5012-08-91 09:50:00 Test Item Value Reference Range Interpretation Comments Calcium Lvl (test code = Calcium Lvl) 8.9 8.5-10.5 [facility] CenterJsysargSZBAAWWWZFKG1377-63-22 09:50:00 Test Item Value Reference Range Interpretation Comments BUN (test code = BUN) 18 7-22 [facility] CenterEuqrlnaNXBZCWSSRWKY9242-14-35 09:50:00 Test Item Value Reference Range Interpretation Comments Sodium Lvl (test code = Sodium Lvl) 138 135-145 [facility] CenterYxoanlgMWGHKLGKKXVX3593-25-70 09:50:00 Test Item Value Reference Range Interpretation Comments Creatinine Lvl (test code = Creatinine 0.82 0.50-1.40 Lvl) [facility] CenterEidmochHAVTTNRFFCFO0675-24-68 09:50:00 Test Item Value Reference Range Interpretation Comments Glucose Lvl (test code = Glucose Lvl) 99 70-99 [facility] CenterGsgijjkTDDDSQRTUKIP3364-92-16 09:50:00 Test Item Value Reference Range Interpretation Comments AGAP (test code = AGAP) 10.5 10.0-20.0 [facility]NgiojpuZJVUEBBMID3181-13-58 09:50:00 Test Item Value Reference Range Interpretation Comments RBC (test code = RBC) 3.56 4.20-5.40 [facility] NortheastEulegouFQGXKIFYHN5292-67-11 09:50:00 Test Item Value Reference Range Interpretation Comments WBC (test code = WBC) 8.1 3.7-10.4 [facility] NortheastAiswobgGZOKAFKBGX4500-58-15 09:50:00 Test Item Value Reference Range Interpretation Comments Hct (test code = Hct) 33.2 36.0-48.0 [facility] NortheastEdcufvfMXOWXCTQQC1546-10-08 09:50:00 Test Item Value Reference Range Interpretation Comments Hgb (test code = Hgb) 10.9 12.0-16.0 [facility] NortheastCbpfqneEZIZTDBRGS4483-46-41 09:50:00 Test Item Value Reference Range Interpretation Comments MCH (test code = MCH) 30.5 pg 27.0-31.0 [facility] NortheastGiejnnqUZRDAUXJBV4253-97-69 09:50:00 Test Item Value Reference Range Interpretation Comments MCV (test code = MCV) 93.3 80.0-98.0 [facility] NortheastYizhtrfTASMGZZCAY3540-98-61 09:50:00 Test Item Value Reference Range Interpretation Comments MCHC (test code = MCHC) 32.7 32.0-36.0 [facility] NortheastOotyjmqHHYBJKQBTZ6179-53-63 09:50:00 Test Item Value Reference Range Interpretation Comments Platelet (test code = Platelet) 415 133-450 [facility] NortheastGutazhzWDLHMHPXIW5176-83-80 09:50:00 Test Item Value Reference Range Interpretation Comments MPV (test code = MPV) 7.1 7.4-10.4 [facility] NortheastDejnvksFZXMORQJEL7228-79-35 09:50:00 Test Item Value Reference Range Interpretation Comments RDW (test code = RDW) 15.3 11.5-14.5 [facility] CenterFbkdxodVYRDZTQWXDMD1641-54-45 09:50:00 Test Item Value Reference Range Interpretation Comments CO2 (test code = CO2) 32 24-32 [facility] CenterVeypbwcKNBHGUKNUWGQ1315-59-96 09:50:00 Test Item Value Reference Range Interpretation Comments Chloride Lvl (test code = Chloride Lvl) 99 95-109 [facility] CenterTxutztqTAQEOMFTZUSZ2010-01-94 09:50:00 Test Item Value Reference Range Interpretation Comments Potassium Lvl (test code = Potassium 3.5 3.5-5.1 Lvl) [facility] CenterSvklsezIHMSJUCRQFEU1056-92-41 09:50:00 Test Item Value Reference Range Interpretation Comments eGFR (test code = eGFR) 66 [facility] CenterEqoltisUNWKHIAFFJNR4377-98-02 09:50:00 Test Item Value Reference Range Interpretation Comments Calcium Lvl (test code = Calcium Lvl) 8.9 8.5-10.5 [facility] CenterUotxhjmYOVKZXTUYTIH8873-49-53 09:50:00 Test Item Value Reference Range Interpretation Comments BUN (test code = BUN) 18 7-22 [facility] CenterIimwsugENQCGCVKVOPP0709-20-42 09:50:00 Test Item Value Reference Range Interpretation Comments Sodium Lvl (test code = Sodium Lvl) 138 135-145 [facility] CenterHvpntweCDMOFPIAXSVX9969-83-30 09:50:00 Test Item Value Reference Range Interpretation Comments Creatinine Lvl (test code = Creatinine 0.82 0.50-1.40 Lvl) [facility] CenterIyvlgtvHSVCIDJSKSDK3892-61-79 09:50:00 Test Item Value Reference Range Interpretation Comments Glucose Lvl (test code = Glucose Lvl) 99 70-99 [facility] CenterBvbbvvsVSRKXMLFBWIX6914-98-35 09:50:00 Test Item Value Reference Range Interpretation Comments AGAP (test code = AGAP) 10.5 10.0-20.0 [facility] NortheastWfhcybkLYUJOLLXMW1478-23-44 09:50:00 Test Item Value Reference Range Interpretation Comments RBC (test code = RBC) 3.56 4.20-5.40 [facility] NortheastIniwrmdDVOLZBTIOD6836-80-65 09:50:00 Test Item Value Reference Range Interpretation Comments WBC (test code = WBC) 8.1 3.7-10.4 [facility] NortheastXceqledTBVHNCYJQF3759-63-16 09:50:00 Test Item Value Reference Range Interpretation Comments Hct (test code = Hct) 33.2 36.0-48.0 [facility] NortheastWbykrjdGWEXKYBULD2998-90-95 09:50:00 Test Item Value Reference Range Interpretation Comments Hgb (test code = Hgb) 10.9 12.0-16.0 [facility] NortheastExmqqsjDYYUFESDXQ1959-45-96 09:50:00 Test Item Value Reference Range Interpretation Comments MCH (test code = MCH) 30.5 pg 27.0-31.0 [facility] NortheastLqrlidyLHLSYJEBJB8589-98-23 09:50:00 Test Item Value Reference Range Interpretation Comments MCV (test code = MCV) 93.3 80.0-98.0 [facility] NortheastLxkngmzRYUXXGSKZQ4672-51-76 09:50:00 Test Item Value Reference Range Interpretation Comments MCHC (test code = MCHC) 32.7 32.0-36.0 [facility] NortheastNayddrjQTOXOJIJFY0997-58-42 09:50:00 Test Item Value Reference Range Interpretation Comments Platelet (test code = Platelet) 415 133-450 [facility] NortheastJxrartdOAHFFMLGCM4155-87-53 09:50:00 Test Item Value Reference Range Interpretation Comments MPV (test code = MPV) 7.1 7.4-10.4 [facility] NortheastXdvvdhyXHRMSSWAYV7741-15-04 09:50:00 Test Item Value Reference Range Interpretation Comments RDW (test code = RDW) 15.3 11.5-14.5 [facility] CenterHlgcgcqHJPKOCZUGAUX9221-09-14 09:50:00 Test Item Value Reference Range Interpretation Comments CO2 (test code = CO2) 32 24-32 [facility] CenterXjhtduaNYMRBLSDPCSC9231-31-23 09:50:00 Test Item Value Reference Range Interpretation Comments Chloride Lvl (test code = Chloride Lvl) 99 95-109 [facility] CenterQyehdsbDACAMKTZGETO4147-47-41 09:50:00 Test Item Value Reference Range Interpretation Comments Potassium Lvl (test code = Potassium 3.5 3.5-5.1 Lvl) [facility] CenterZgdooexDLDWHJPYXSYE2252-08-56 09:50:00 Test Item Value Reference Range Interpretation Comments eGFR (test code = eGFR) 66 [facility] CenterWidhjmaRIORYKLMCBSZ0195-98-07 09:50:00 Test Item Value Reference Range Interpretation Comments Calcium Lvl (test code = Calcium Lvl) 8.9 8.5-10.5 [facility] CenterWbjhokbPQHDPDDORKKO9932-83-74 09:50:00 Test Item Value Reference Range Interpretation Comments BUN (test code = BUN) 18 7-22 [facility] CenterWslxtnjTIPNFQIEFUQG1319-83-31 09:50:00 Test Item Value Reference Range Interpretation Comments Sodium Lvl (test code = Sodium Lvl) 138 135-145 [facility] CenterMeluamlYWDFMIHXDBNA2450-38-61 09:50:00 Test Item Value Reference Range Interpretation Comments Creatinine Lvl (test code = Creatinine 0.82 0.50-1.40 Lvl) [facility] CenterGcejksuLVNPXDFBVUZJ6152-96-99 09:50:00 Test Item Value Reference Range Interpretation Comments Glucose Lvl (test code = Glucose Lvl) 99 70-99 [facility] CenterDqaqrysVOSTEKQNSDLF0220-45-28 09:50:00 Test Item Value Reference Range Interpretation Comments AGAP (test code = AGAP) 10.5 10.0-20.0 [facility] NortheastLixgnqeXTSMQJPUJC7100-29-39 09:50:00 Test Item Value Reference Range Interpretation Comments RBC (test code = RBC) 3.56 4.20-5.40 [facility] NortheastBxpjvwsRDCIFFDOOR1116-40-46 09:50:00 Test Item Value Reference Range Interpretation Comments WBC (test code = WBC) 8.1 3.7-10.4 [facility] NortheastFhfhwybEKJIDAAIEY6776-47-59 09:50:00 Test Item Value Reference Range Interpretation Comments Hct (test code = Hct) 33.2 36.0-48.0 [facility] NortheastAicbnmgOZYZPFTWUG9543-26-20 09:50:00 Test Item Value Reference Range Interpretation Comments Hgb (test code = Hgb) 10.9 12.0-16.0 [facility] NortheastPztzeuyDJUWHRXAHE2458-61-01 09:50:00 Test Item Value Reference Range Interpretation Comments MCH (test code = MCH) 30.5 pg 27.0-31.0 [facility] NortheastXedsjgwGHLKRTCEZW7215-61-26 09:50:00 Test Item Value Reference Range Interpretation Comments MCV (test code = MCV) 93.3 80.0-98.0 [facility] NortheastDnxsrqjDWKUAJRKZG6856-75-67 09:50:00 Test Item Value Reference Range Interpretation Comments MCHC (test code = MCHC) 32.7 32.0-36.0 [facility] NortheastOtvmmoiVXIVLEQDMY4498-60-15 09:50:00 Test Item Value Reference Range Interpretation Comments Platelet (test code = Platelet) 415 133-450 [facility] NortheastGlgubhbNPTAUNUBPJ9366-64-04 09:50:00 Test Item Value Reference Range Interpretation Comments MPV (test code = MPV) 7.1 7.4-10.4 [facility] NortheastYlptmveUBTYHEQWPN9613-96-11 09:50:00 Test Item Value Reference Range Interpretation Comments RDW (test code = RDW) 15.3 11.5-14.5 [facility] NortheastRrekyndHKZIQYLUQK3627-50-98 22:04:00 Test Item Value Reference Range Interpretation Comments RDW (test code = RDW) 15.6 11.5-14.5 [facility] NortheastTnbatnmMMAZINXNZR0942-57-21 22:04:00 Test Item Value Reference Range Interpretation Comments MPV (test code = MPV) 7.0 7.4-10.4 [facility] NortheastZtrnuxoRUCCQALHOD4501-98-64 22:04:00 Test Item Value Reference Range Interpretation Comments Platelet (test code = Platelet) 382 133-450 [facility] NortheastYhkuxsnSWWGUPEOSO7016-01-49 22:04:00 Test Item Value Reference Range Interpretation Comments MCH (test code = MCH) 29.9 pg 27.0-31.0 [facility] NortheastBnjhqiqSJYHPONLXC8079-54-22 22:04:00 Test Item Value Reference Range Interpretation Comments Hct (test code = Hct) 33.6 36.0-48.0 [facility] NortheastEdmjvwsVPVFUXFDDM3003-28-07 22:04:00 Test Item Value Reference Range Interpretation Comments MCV (test code = MCV) 93.6 80.0-98.0 [facility] NortheastLdoowqgGSAZZDRGWM5433-87-03 22:04:00 Test Item Value Reference Range Interpretation Comments RBC (test code = RBC) 3.59 4.20-5.40 [facility] NortheastVipfukvWUURDAYYFA1716-12-91 22:04:00 Test Item Value Reference Range Interpretation Comments Hgb (test code = Hgb) 10.7 12.0-16.0 [facility] NortheastGzeebjdWRYGMBXCXC1755-77-66 22:04:00 Test Item Value Reference Range Interpretation Comments MCHC (test code = MCHC) 31.9 32.0-36.0 [facility] NortheastFdxdeqjLSPMWGRDZM0424-10-70 22:04:00 Test Item Value Reference Range Interpretation Comments WBC (test code = WBC) 6.5 3.7-10.4 [facility] NortheastGzempguSBWXRLYMBG5088-06-32 22:04:00 Test Item Value Reference Range Interpretation Comments RDW (test code = RDW) 15.6 11.5-14.5 [facility] NortheastTgqgpwnAWVHWECQDI1849-55-57 22:04:00 Test Item Value Reference Range Interpretation Comments MPV (test code = MPV) 7.0 7.4-10.4 [facility] NortheastNtymsusCAPRWBAOPF4873-77-39 22:04:00 Test Item Value Reference Range Interpretation Comments Platelet (test code = Platelet) 382 133450 [facility] NortheastHprdkpeTLAELXIRRB8934-78-16 22:04:00 Test Item Value Reference Range Interpretation Comments MCH (test code = MCH) 29.9 pg 27.0-31.0 [facility] NortheastRbhdindMRZBRDCSXG1620-26-91 22:04:00 Test Item Value Reference Range Interpretation Comments Hct (test code = Hct) 33.6 36.0-48.0 [facility] NortheastDyddmjxFTHEZTIDVD9652-96-58 22:04:00 Test Item Value Reference Range Interpretation Comments MCV (test code = MCV) 93.6 80.0-98.0 [facility] NortheastPtjnevaCLFCYBZTBK5211-15-15 22:04:00 Test Item Value Reference Range Interpretation Comments RBC (test code = RBC) 3.59 4.20-5.40 [facility] NortheastEihkfsaRSFXACRBHA2803-01-28 22:04:00 Test Item Value Reference Range Interpretation Comments Hgb (test code = Hgb) 10.7 12.0-16.0 [facility] NortheastPlromhsPEQVWBVHLN9404-63-81 22:04:00 Test Item Value Reference Range Interpretation Comments MCHC (test code = MCHC) 31.9 32.0-36.0 [facility] NortheastNnjeslfDYUITJJZGE6352-75-01 22:04:00 Test Item Value Reference Range Interpretation Comments WBC (test code = WBC) 6.5 3.7-10.4 [facility] NortheastMrjiaarQJKICECPNL7740-54-98 22:04:00 Test Item Value Reference Range Interpretation Comments RDW (test code = RDW) 15.6 11.5-14.5 [facility] NortheastVufcmkiFJRGIRZZGK6520-09-48 22:04:00 Test Item Value Reference Range Interpretation Comments MPV (test code = MPV) 7.0 7.4-10.4 [facility] NortheastPzdrdkiEKYUNFBTLM9507-01-15 22:04:00 Test Item Value Reference Range Interpretation Comments Platelet (test code = Platelet) 382 133-450 [facility] NortheastUdxmxrfJKHLJQAOHQ8335-33-10 22:04:00 Test Item Value Reference Range Interpretation Comments MCH (test code = MCH) 29.9 pg 27.0-31.0 [facility] NortheastMnoeohtJVDJCWMUHG0899-05-38 22:04:00 Test Item Value Reference Range Interpretation Comments Hct (test code = Hct) 33.6 36.0-48.0 [facility] NortheastJxotrcxLACPMDVERA2727-59-63 22:04:00 Test Item Value Reference Range Interpretation Comments MCV (test code = MCV) 93.6 80.0-98.0 [facility] NortheastOrqtbucTHFELLCXFN4674-92-50 22:04:00 Test Item Value Reference Range Interpretation Comments RBC (test code = RBC) 3.59 4.20-5.40 [facility] NortheastCvmwfnfZINRWQHOOU5093-39-91 22:04:00 Test Item Value Reference Range Interpretation Comments Hgb (test code = Hgb) 10.7 12.0-16.0 [facility] NortheastTuuntphOUIDZSKSMZ1305-79-30 22:04:00 Test Item Value Reference Range Interpretation Comments MCHC (test code = MCHC) 31.9 32.0-36.0 [facility] NortheastXlvtgunSMPRLXRVED8805-62-13 22:04:00 Test Item Value Reference Range Interpretation Comments WBC (test code = WBC) 6.5 3.7-10.4 [facility] NortheastSdqksfeSKTXTJCBUS3966-74-60 22:04:00 Test Item Value Reference Range Interpretation Comments RDW (test code = RDW) 15.6 11.5-14.5 [facility] NortheastKhdhrptWXVCJBILXT1373-07-58 22:04:00 Test Item Value Reference Range Interpretation Comments MPV (test code = MPV) 7.0 7.4-10.4 [facility] NortheastVoruqlfMHBYRGVCKZ3464-06-10 22:04:00 Test Item Value Reference Range Interpretation Comments Platelet (test code = Platelet) 382 133-450 [facility] NortheastVpflkveYDMUMJLUWQ6848-75-99 22:04:00 Test Item Value Reference Range Interpretation Comments MCH (test code = MCH) 29.9 pg 27.0-31.0 [facility] NortheastNkwvcrfLQKXVJOHVB7787-05-28 22:04:00 Test Item Value Reference Range Interpretation Comments Hct (test code = Hct) 33.6 36.0-48.0 [facility] NortheastQuqtlghNKPCQVBWXS7560-94-01 22:04:00 Test Item Value Reference Range Interpretation Comments MCV (test code = MCV) 93.6 80.0-98.0 [facility] NortheastZocblhtMJWUKTQHTB3365-16-10 22:04:00 Test Item Value Reference Range Interpretation Comments RBC (test code = RBC) 3.59 4.20-5.40 [facility] NortheastFsumlkyGPKJYOHXUG8423-02-15 22:04:00 Test Item Value Reference Range Interpretation Comments Hgb (test code = Hgb) 10.7 12.0-16.0 [facility] NortheastDpmwmgcCWSDGEHGTT7466-27-49 22:04:00 Test Item Value Reference Range Interpretation Comments MCHC (test code = MCHC) 31.9 32.0-36.0 [facility] NortheastBtissfrCCJHIONKBX6192-89-50 22:04:00 Test Item Value Reference Range Interpretation Comments WBC (test code = WBC) 6.5 3.7-10.4 [facility] NortheastCzbkudpQGAAHMKTAB8276-69-16 22:04:00 Test Item Value Reference Range Interpretation Comments RDW (test code = RDW) 15.6 11.5-14.5 [facility] NortheastEgbeojiWKTCOUUSFG3822-68-46 22:04:00 Test Item Value Reference Range Interpretation Comments MPV (test code = MPV) 7.0 7.4-10.4 [facility] NortheastRsufvmtXGCFWHYLEX7198-24-90 22:04:00 Test Item Value Reference Range Interpretation Comments Platelet (test code = Platelet) 382 133-450 [facility] NortheastNdnoqdbTVOYZLEGKD7755-05-51 22:04:00 Test Item Value Reference Range Interpretation Comments MCH (test code = MCH) 29.9 pg 27.0-31.0 [facility] NortheastFgmmtytBDIANSEWVM4151-42-23 22:04:00 Test Item Value Reference Range Interpretation Comments Hct (test code = Hct) 33.6 36.0-48.0 [facility] NortheastFfpqqheZYZNXXXYOO0089-25-24 22:04:00 Test Item Value Reference Range Interpretation Comments MCV (test code = MCV) 93.6 80.0-98.0 [facility] NortheastRwrqputWEVUFMVSHC9520-60-83 22:04:00 Test Item Value Reference Range Interpretation Comments RBC (test code = RBC) 3.59 4.20-5.40 [facility] NortheastBrgighbAUMRSPZKMW1151-08-99 22:04:00 Test Item Value Reference Range Interpretation Comments Hgb (test code = Hgb) 10.7 12.0-16.0 [facility] NortheastXeidtigQSHQIAMAZE0669-55-47 22:04:00 Test Item Value Reference Range Interpretation Comments MCHC (test code = MCHC) 31.9 32.0-36.0 [facility] NortheastJxkigyjKTCKFYSBBD3800-20-49 22:04:00 Test Item Value Reference Range Interpretation Comments WBC (test code = WBC) 6.5 3.7-10.4 [facility] NortheastBbpxgxlHVOWBNBLWB2019-20-37 22:04:00 Test Item Value Reference Range Interpretation Comments RDW (test code = RDW) 15.6 11.5-14.5 [facility] NortheastKopnwfbMZZUIMELRB7595-50-80 22:04:00 Test Item Value Reference Range Interpretation Comments MPV (test code = MPV) 7.0 7.4-10.4 [facility] NortheastMdfmdkxYBTCRAXTKP1507-17-97 22:04:00 Test Item Value Reference Range Interpretation Comments Platelet (test code = Platelet) 382 133450 [facility] NortheastJlhpghwJDWOJKLUDV1128-45-63 22:04:00 Test Item Value Reference Range Interpretation Comments MCH (test code = MCH) 29.9 pg 27.0-31.0 [facility] NortheastSgqcpmeQNJVJWWTQE5552-21-49 22:04:00 Test Item Value Reference Range Interpretation Comments Hct (test code = Hct) 33.6 36.0-48.0 [facility] NortheastGboqmodAWCVBJLIFP7256-94-48 22:04:00 Test Item Value Reference Range Interpretation Comments MCV (test code = MCV) 93.6 80.0-98.0 [facility] NortheastNwdzakmPFOJXDYNYX5666-76-06 22:04:00 Test Item Value Reference Range Interpretation Comments RBC (test code = RBC) 3.59 4.20-5.40 [facility] NortheastBpdjkmjQDERGJCVQF3276-86-87 22:04:00 Test Item Value Reference Range Interpretation Comments Hgb (test code = Hgb) 10.7 12.0-16.0 [facility] NortheastZoelvjhSVPEBXXSKZ3513-55-64 22:04:00 Test Item Value Reference Range Interpretation Comments MCHC (test code = MCHC) 31.9 32.0-36.0 [facility] NortheastCylsqtpFSXWGRYKDG5113-32-67 22:04:00 Test Item Value Reference Range Interpretation Comments WBC (test code = WBC) 6.5 3.7-10.4 [facility] NortheastSpzscbwXVVSSDZYBL1600-87-33 22:04:00 Test Item Value Reference Range Interpretation Comments RDW (test code = RDW) 15.6 11.5-14.5 [facility] NortheastKkpwfsvMLVAERTSWO4448-49-60 22:04:00 Test Item Value Reference Range Interpretation Comments MPV (test code = MPV) 7.0 7.4-10.4 [facility] NortheastVjjnlbaKBOBMGBQOS3998-96-24 22:04:00 Test Item Value Reference Range Interpretation Comments Platelet (test code = Platelet) 382 133450 [facility] NortheastUbnnlviWADIZJEUND7839-48-63 22:04:00 Test Item Value Reference Range Interpretation Comments MCH (test code = MCH) 29.9 pg 27.0-31.0 [facility] NortheastXggbifaHSIZESLXKQ0805-11-57 22:04:00 Test Item Value Reference Range Interpretation Comments Hct (test code = Hct) 33.6 36.0-48.0 [facility] NortheastNagncjpANSGRMHAWP1880-94-48 22:04:00 Test Item Value Reference Range Interpretation Comments MCV (test code = MCV) 93.6 80.0-98.0 [facility] NortheastForkazzRXFEQJBHMI7027-17-37 22:04:00 Test Item Value Reference Range Interpretation Comments RBC (test code = RBC) 3.59 4.20-5.40 [facility] NortheastZqnxvfdPRUEYCSJSY4060-33-77 22:04:00 Test Item Value Reference Range Interpretation Comments Hgb (test code = Hgb) 10.7 12.0-16.0 [facility] NortheastMtiwmjmMYVEPHVCYM9554-99-62 22:04:00 Test Item Value Reference Range Interpretation Comments MCHC (test code = MCHC) 31.9 32.0-36.0 [facility] NortheastEucdvhyZDCUSSEIXG9766-69-52 22:04:00 Test Item Value Reference Range Interpretation Comments WBC (test code = WBC) 6.5 3.7-10.4 [facility] NortheastGevapqoUGEMZXSPLL6097-70-34 22:04:00 Test Item Value Reference Range Interpretation Comments RDW (test code = RDW) 15.6 11.5-14.5 [facility] NortheastKzwvozhVCXOTYERVQ9179-03-15 22:04:00 Test Item Value Reference Range Interpretation Comments MPV (test code = MPV) 7.0 7.4-10.4 [facility] NortheastKkiqmcsYQYTDYXBMO5104-15-14 22:04:00 Test Item Value Reference Range Interpretation Comments Platelet (test code = Platelet) 382 133-450 [facility] NortheastTxcbkizHNGHIBOJMI1767-89-19 22:04:00 Test Item Value Reference Range Interpretation Comments MCH (test code = MCH) 29.9 pg 27.0-31.0 [facility] NortheastCujcuqrZRRABEGSJX8321-06-29 22:04:00 Test Item Value Reference Range Interpretation Comments Hct (test code = Hct) 33.6 36.0-48.0 [facility] NortheastCtnbgazRBZYQLDJBG2164-17-74 22:04:00 Test Item Value Reference Range Interpretation Comments MCV (test code = MCV) 93.6 80.0-98.0 [facility] NortheastIijrvgqNXPZQNAGFS5111-12-01 22:04:00 Test Item Value Reference Range Interpretation Comments RBC (test code = RBC) 3.59 4.20-5.40 [facility] NortheastGdtubndWZLWZTFEOM4545-85-75 22:04:00 Test Item Value Reference Range Interpretation Comments Hgb (test code = Hgb) 10.7 12.0-16.0 [facility] NortheastFgfvpmxAYXKWFTCYF6288-56-34 22:04:00 Test Item Value Reference Range Interpretation Comments MCHC (test code = MCHC) 31.9 32.0-36.0 [facility] NortheastPeubtaxYSCWCDPKSV9754-20-33 22:04:00 Test Item Value Reference Range Interpretation Comments WBC (test code = WBC) 6.5 3.7-10.4 [facility] NortheastAcocwqfFOQICTQUCK0594-93-87 22:04:00 Test Item Value Reference Range Interpretation Comments RDW (test code = RDW) 15.6 11.5-14.5 [facility] NortheastZnprahxAIMWYYNGOT1163-11-40 22:04:00 Test Item Value Reference Range Interpretation Comments MPV (test code = MPV) 7.0 7.4-10.4 [facility] NortheastFeaihkfXZBMJEQJNO1126-40-92 22:04:00 Test Item Value Reference Range Interpretation Comments Platelet (test code = Platelet) 382 133-450 [facility] NortheastSlbacjdEIGEHMJUSD9274-76-95 22:04:00 Test Item Value Reference Range Interpretation Comments MCH (test code = MCH) 29.9 pg 27.0-31.0 [facility] NortheastYajkcerCHPBVIEWSU1716-97-62 22:04:00 Test Item Value Reference Range Interpretation Comments Hct (test code = Hct) 33.6 36.0-48.0 [facility] NortheastHsmtprkKISHQMNWIO5770-78-99 22:04:00 Test Item Value Reference Range Interpretation Comments MCV (test code = MCV) 93.6 80.0-98.0 [facility] NortheastKtamysyQYOTHWTWRX5045-45-27 22:04:00 Test Item Value Reference Range Interpretation Comments RBC (test code = RBC) 3.59 4.20-5.40 [facility] NortheastNqnrbsoDOOEJQGQHA3838-17-39 22:04:00 Test Item Value Reference Range Interpretation Comments Hgb (test code = Hgb) 10.7 12.0-16.0 [facility] NortheastYxpgaoiZFHQPGZWCR8445-94-32 22:04:00 Test Item Value Reference Range Interpretation Comments MCHC (test code = MCHC) 31.9 32.0-36.0 [facility] NortheastHhaqzftFLQPBYSMOY5788-38-57 22:04:00 Test Item Value Reference Range Interpretation Comments WBC (test code = WBC) 6.5 3.7-10.4 [facility] NortheastZlqotzjXSBTRFQXVU6432-00-75 22:04:00 Test Item Value Reference Range Interpretation Comments RDW (test code = RDW) 15.6 11.5-14.5 [facility] NortheastAiivlqrOJTWRUWBFE0334-14-99 22:04:00 Test Item Value Reference Range Interpretation Comments MPV (test code = MPV) 7.0 7.4-10.4 [facility]JktctoqQPACRMMIGB6109-48-74 22:04:00 Test Item Value Reference Range Interpretation Comments Platelet (test code = Platelet) 382 133-450 [facility]VjfxedkLPZFYSRGIF5737-02-88 22:04:00 Test Item Value Reference Range Interpretation Comments MCH (test code = MCH) 29.9 pg 27.0-31.0 [facility]GxqiyhvEXJYJCBPDL9743-34-14 22:04:00 Test Item Value Reference Range Interpretation Comments Hct (test code = Hct) 33.6 36.0-48.0 [facility]NidluavPXKTTIXDYG8345-08-80 22:04:00 Test Item Value Reference Range Interpretation Comments MCV (test code = MCV) 93.6 80.0-98.0 [facility]KbplplhOJOIHMKUOI0311-07-46 22:04:00 Test Item Value Reference Range Interpretation Comments RBC (test code = RBC) 3.59 4.20-5.40 [facility]NptqeyrGYZUAHTVES5314-03-91 22:04:00 Test Item Value Reference Range Interpretation Comments Hgb (test code = Hgb) 10.7 12.0-16.0 [facility] NortheastOxlrgwmDFLYJLGYFF9458-39-29 22:04:00 Test Item Value Reference Range Interpretation Comments MCHC (test code = MCHC) 31.9 32.0-36.0 [facility]CjrzwpkZQFGPPOAFA3969-73-42 22:04:00 Test Item Value Reference Range Interpretation Comments WBC (test code = WBC) 6.5 3.7-10.4 [facility] NortheastRutolzvAFGRRDTGJD0668-71-07 22:04:00 Test Item Value Reference Range Interpretation Comments RDW (test code = RDW) 15.6 11.5-14.5 [facility] NortheastVwhdggkWSCKZVFJWP1374-22-17 22:04:00 Test Item Value Reference Range Interpretation Comments MPV (test code = MPV) 7.0 7.4-10.4 [facility] NortheastGirdmoqKFMKYCKPYQ3541-92-07 22:04:00 Test Item Value Reference Range Interpretation Comments Platelet (test code = Platelet) 382 133-450 [facility]DhfpziyQIZDNOCRNL7637-10-86 22:04:00 Test Item Value Reference Range Interpretation Comments MCH (test code = MCH) 29.9 pg 27.0-31.0 [facility] NortheastRrfqeypPJZYNRAVSB9490-73-38 22:04:00 Test Item Value Reference Range Interpretation Comments Hct (test code = Hct) 33.6 36.0-48.0 [facility] NortheastIfyzskmJUOVMKHVFM2454-95-55 22:04:00 Test Item Value Reference Range Interpretation Comments MCV (test code = MCV) 93.6 80.0-98.0 [facility] NortheastShrezuwNSJSPUHCWZ2163-55-12 22:04:00 Test Item Value Reference Range Interpretation Comments RBC (test code = RBC) 3.59 4.20-5.40 [facility] NortheastTzcdaclTVGUSUZKWN0575-89-48 22:04:00 Test Item Value Reference Range Interpretation Comments Hgb (test code = Hgb) 10.7 12.0-16.0 [facility] NortheastCifocvhENMCFOTUOK7559-35-78 22:04:00 Test Item Value Reference Range Interpretation Comments MCHC (test code = MCHC) 31.9 32.0-36.0 [facility] NortheastMhfkpizOLKKMYHKWQ6977-10-47 22:04:00 Test Item Value Reference Range Interpretation Comments WBC (test code = WBC) 6.5 3.7-10.4 [facility]IwmwxyxJYDIBRKSZW6751-40-86 22:04:00 Test Item Value Reference Range Interpretation Comments RDW (test code = RDW) 15.6 11.5-14.5 [facility]NpagxpfBGTRYPWSHC3108-41-00 22:04:00 Test Item Value Reference Range Interpretation Comments MPV (test code = MPV) 7.0 7.4-10.4 [facility]XcsxmviSNSVOBCZDN1909-98-89 22:04:00 Test Item Value Reference Range Interpretation Comments Platelet (test code = Platelet) 382 133-450 [facility]IvngscdXCNEMAPCKN2523-16-87 22:04:00 Test Item Value Reference Range Interpretation Comments MCH (test code = MCH) 29.9 pg 27.0-31.0 [facility]JphhvfjYRKOXGMFNF8377-83-97 22:04:00 Test Item Value Reference Range Interpretation Comments Hct (test code = Hct) 33.6 36.0-48.0 [facility]VzkssaaPWICOFHNOF7642-95-74 22:04:00 Test Item Value Reference Range Interpretation Comments MCV (test code = MCV) 93.6 80.0-98.0 [facility] NortheastPldovndTXEJNJJNYM7545-75-90 22:04:00 Test Item Value Reference Range Interpretation Comments RBC (test code = RBC) 3.59 4.20-5.40 [facility]IehdngsZHIJBJHYKE3164-94-06 22:04:00 Test Item Value Reference Range Interpretation Comments Hgb (test code = Hgb) 10.7 12.0-16.0 [facility]IpflzapCBIMQTGWAU4815-83-35 22:04:00 Test Item Value Reference Range Interpretation Comments MCHC (test code = MCHC) 31.9 32.0-36.0 [facility] NortheastOvvfpovCLITRYSJKL6905-11-87 22:04:00 Test Item Value Reference Range Interpretation Comments WBC (test code = WBC) 6.5 3.7-10.4 [facility] NortheastRinvptdVJTJVMOVYY4475-02-08 22:04:00 Test Item Value Reference Range Interpretation Comments RDW (test code = RDW) 15.6 11.5-14.5 [facility] NortheastByifotaGYZWIZPKIB9093-85-47 22:04:00 Test Item Value Reference Range Interpretation Comments MPV (test code = MPV) 7.0 7.4-10.4 [facility]NkxlnjuBJHJKMJFAL3800-30-31 22:04:00 Test Item Value Reference Range Interpretation Comments Platelet (test code = Platelet) 382 133-450 [facility] NortheastOalfreoWMJNTAIMWB2609-41-08 22:04:00 Test Item Value Reference Range Interpretation Comments MCH (test code = MCH) 29.9 pg 27.0-31.0 [facility] NortheastEodzoqtYVAJWJOKVH8028-52-05 22:04:00 Test Item Value Reference Range Interpretation Comments Hct (test code = Hct) 33.6 36.0-48.0 [facility] NortheastCyyskiaEQYJKPUDMK4818-00-99 22:04:00 Test Item Value Reference Range Interpretation Comments MCV (test code = MCV) 93.6 80.0-98.0 [facility]JunyphuNHOBXYWZYD4396-50-82 22:04:00 Test Item Value Reference Range Interpretation Comments RBC (test code = RBC) 3.59 4.20-5.40 [facility]IukcgzoBMDJDUCGCQ0295-15-51 22:04:00 Test Item Value Reference Range Interpretation Comments Hgb (test code = Hgb) 10.7 12.0-16.0 [facility] NortheastWbotcsbUQNBIFMBVZ8339-68-97 22:04:00 Test Item Value Reference Range Interpretation Comments MCHC (test code = MCHC) 31.9 32.0-36.0 [facility]XdtynbzAVLEIFHZUS1570-29-83 22:04:00 Test Item Value Reference Range Interpretation Comments WBC (test code = WBC) 6.5 3.7-10.4 [facility] NortheastWpcteluEJYLLZQUTH5313-47-34 22:04:00 Test Item Value Reference Range Interpretation Comments RDW (test code = RDW) 15.6 11.5-14.5 [facility]HgdjowcCSFPSKCSNE1373-09-77 22:04:00 Test Item Value Reference Range Interpretation Comments MPV (test code = MPV) 7.0 7.4-10.4 [facility] NortheastEsfvjjvWHNZLTDIBP9875-57-64 22:04:00 Test Item Value Reference Range Interpretation Comments Platelet (test code = Platelet) 382 133-450 [facility]VjcpschFYAVEHXKNY9252-91-71 22:04:00 Test Item Value Reference Range Interpretation Comments MCH (test code = MCH) 29.9 pg 27.0-31.0 [facility] NortheastPtppiqiWLAIKVVKSL8516-63-49 22:04:00 Test Item Value Reference Range Interpretation Comments Hct (test code = Hct) 33.6 36.0-48.0 [facility] NortheastPyrskpqOMNLLNUGYK8369-65-94 22:04:00 Test Item Value Reference Range Interpretation Comments MCV (test code = MCV) 93.6 80.0-98.0 [facility] NortheastGnnftanSACTHPNQQP1431-80-02 22:04:00 Test Item Value Reference Range Interpretation Comments RBC (test code = RBC) 3.59 4.20-5.40 [facility] NortheastAybmjbhMDLGEZNDVB5985-57-79 22:04:00 Test Item Value Reference Range Interpretation Comments Hgb (test code = Hgb) 10.7 12.0-16.0 [facility] NortheastZfazxasKAAXKVJJUT9131-65-81 22:04:00 Test Item Value Reference Range Interpretation Comments MCHC (test code = MCHC) 31.9 32.0-36.0 [facility] NortheastGxskaycSEJEMZMGYY0460-71-79 22:04:00 Test Item Value Reference Range Interpretation Comments WBC (test code = WBC) 6.5 3.7-10.4 [facility] NortheastNxrhvonUDHPPRTXCA8382-22-38 22:04:00 Test Item Value Reference Range Interpretation Comments RDW (test code = RDW) 15.6 11.5-14.5 [facility] NortheastVesyztqSMOMNXAAGE2223-96-16 22:04:00 Test Item Value Reference Range Interpretation Comments MPV (test code = MPV) 7.0 7.4-10.4 [facility]NsnejcdAKGGOJPLUJ5588-54-91 22:04:00 Test Item Value Reference Range Interpretation Comments Platelet (test code = Platelet) 382 133-450 [facility]XpqffinQVJPSVQFSI9230-35-43 22:04:00 Test Item Value Reference Range Interpretation Comments MCH (test code = MCH) 29.9 pg 27.0-31.0 [facility] NortheastRvwvxssCXHXLZPFJI1391-13-38 22:04:00 Test Item Value Reference Range Interpretation Comments Hct (test code = Hct) 33.6 36.0-48.0 [facility] NortheastCzeyvhiHGVSMOMAJM5519-87-78 22:04:00 Test Item Value Reference Range Interpretation Comments MCV (test code = MCV) 93.6 80.0-98.0 [facility] NortheastLxrnhgsYXNUWZTEKU1072-39-96 22:04:00 Test Item Value Reference Range Interpretation Comments RBC (test code = RBC) 3.59 4.20-5.40 [facility]NxqdxiyYQDAAHNFHB5023-11-26 22:04:00 Test Item Value Reference Range Interpretation Comments Hgb (test code = Hgb) 10.7 12.0-16.0 [facility] NortheastEatlvidRMGUOVTIEH2679-68-47 22:04:00 Test Item Value Reference Range Interpretation Comments MCHC (test code = MCHC) 31.9 32.0-36.0 [facility] NortheastAbwbpibVXXXBWOTRW4613-83-15 22:04:00 Test Item Value Reference Range Interpretation Comments WBC (test code = WBC) 6.5 3.7-10.4 [facility] NortheastCymbdahWHTFNFLOUA2769-10-39 22:04:00 Test Item Value Reference Range Interpretation Comments RDW (test code = RDW) 15.6 11.5-14.5 [facility] NortheastAnrkjulOPUAZQUBEJ6314-01-40 22:04:00 Test Item Value Reference Range Interpretation Comments MPV (test code = MPV) 7.0 7.4-10.4 [facility] NortheastJukqbwhEBHTYWHRNY3177-99-38 22:04:00 Test Item Value Reference Range Interpretation Comments Platelet (test code = Platelet) 382 133-450 [facility] NortheastDstexrpZYVIBYWTAS7952-82-18 22:04:00 Test Item Value Reference Range Interpretation Comments MCH (test code = MCH) 29.9 pg 27.0-31.0 [facility] NortheastKslmzqjXZEHPYCGGV2514-58-00 22:04:00 Test Item Value Reference Range Interpretation Comments Hct (test code = Hct) 33.6 36.0-48.0 [facility] NortheastBqeqkboAQFLIDLQDZ8232-52-58 22:04:00 Test Item Value Reference Range Interpretation Comments MCV (test code = MCV) 93.6 80.0-98.0 [facility] NortheastWhydbviOQCXUOFPZA4824-90-32 22:04:00 Test Item Value Reference Range Interpretation Comments RBC (test code = RBC) 3.59 4.20-5.40 [facility] NortheastEogakkqALVIHQTQIL0163-01-10 22:04:00 Test Item Value Reference Range Interpretation Comments Hgb (test code = Hgb) 10.7 12.0-16.0 [facility] NortheastFrjebqlULFMKBADEH9431-77-94 22:04:00 Test Item Value Reference Range Interpretation Comments MCHC (test code = MCHC) 31.9 32.0-36.0 [facility] NortheastQiavclpZPBDPVOHLB8693-96-79 22:04:00 Test Item Value Reference Range Interpretation Comments WBC (test code = WBC) 6.5 3.7-10.4 [facility] NortheastAlmsowiFTFEIETTDI1422-66-66 22:04:00 Test Item Value Reference Range Interpretation Comments RDW (test code = RDW) 15.6 11.5-14.5 [facility] NortheastRgjjrrsMVWCGDXATE7252-91-59 22:04:00 Test Item Value Reference Range Interpretation Comments MPV (test code = MPV) 7.0 7.4-10.4 [facility] NortheastJeqolunTMAYFQYMEB8448-21-19 22:04:00 Test Item Value Reference Range Interpretation Comments Platelet (test code = Platelet) 382 133-450 [facility] NortheastTjfuwnuUCTCJLKNUQ0528-31-35 22:04:00 Test Item Value Reference Range Interpretation Comments MCH (test code = MCH) 29.9 pg 27.0-31.0 [facility] NortheastBgrfdqaQCTDGZGWAE6260-53-16 22:04:00 Test Item Value Reference Range Interpretation Comments Hct (test code = Hct) 33.6 36.0-48.0 [facility] NortheastTalbvhwBVSQUXNKQQ8593-84-85 22:04:00 Test Item Value Reference Range Interpretation Comments MCV (test code = MCV) 93.6 80.0-98.0 [facility] NortheastNlsamkaEQBVCJAZFK6866-62-38 22:04:00 Test Item Value Reference Range Interpretation Comments RBC (test code = RBC) 3.59 4.20-5.40 [facility]TitnjtdSQOTWQZBFF4496-35-85 22:04:00 Test Item Value Reference Range Interpretation Comments Hgb (test code = Hgb) 10.7 12.0-16.0 [facility] NortheastRtovlsmLXVOCXFJIB8236-13-31 22:04:00 Test Item Value Reference Range Interpretation Comments MCHC (test code = MCHC) 31.9 32.0-36.0 [facility] NortheastVvbfrcdQLBZWNGYUH0235-18-01 22:04:00 Test Item Value Reference Range Interpretation Comments WBC (test code = WBC) 6.5 3.7-10.4 [facility] NortheastMirskhjPTSXHPGWAQ7231-66-57 22:04:00 Test Item Value Reference Range Interpretation Comments RDW (test code = RDW) 15.6 11.5-14.5 [facility] NortheastGlmiryxIQIFMXDXZC5200-87-80 22:04:00 Test Item Value Reference Range Interpretation Comments MPV (test code = MPV) 7.0 7.4-10.4 [facility] NortheastZwhgjnyHOLMZYKJDR9470-31-27 22:04:00 Test Item Value Reference Range Interpretation Comments Platelet (test code = Platelet) 382 133-450 [facility]OcqqhivPQFROEFBIC5212-33-83 22:04:00 Test Item Value Reference Range Interpretation Comments MCH (test code = MCH) 29.9 pg 27.0-31.0 [facility] NortheastYlzzjspCWTOJBRQCT0746-29-45 22:04:00 Test Item Value Reference Range Interpretation Comments Hct (test code = Hct) 33.6 36.0-48.0 [facility] NortheastOnefxcvDIDLKQOSDS1351-45-69 22:04:00 Test Item Value Reference Range Interpretation Comments MCV (test code = MCV) 93.6 80.0-98.0 [facility] NortheastRugeazwQXZGGBDEQK6032-13-27 22:04:00 Test Item Value Reference Range Interpretation Comments RBC (test code = RBC) 3.59 4.20-5.40 [facility] NortheastUmtjrvtXOSZHPIRUY8022-35-44 22:04:00 Test Item Value Reference Range Interpretation Comments Hgb (test code = Hgb) 10.7 12.0-16.0 [facility] NortheastVmkrsbuFRSTECEVPE7490-94-45 22:04:00 Test Item Value Reference Range Interpretation Comments MCHC (test code = MCHC) 31.9 32.0-36.0 [facility] NortheastSzdzwgfZTJIHTFUVW4796-11-15 22:04:00 Test Item Value Reference Range Interpretation Comments WBC (test code = WBC) 6.5 3.7-10.4 [facility] NortheastIoidyxtZEMTLZSSEQ3299-19-85 22:04:00 Test Item Value Reference Range Interpretation Comments RDW (test code = RDW) 15.6 11.5-14.5 [facility] NortheastSqojxhiTZUWEOFUKT7170-36-10 22:04:00 Test Item Value Reference Range Interpretation Comments MPV (test code = MPV) 7.0 7.4-10.4 [facility] NortheastPmapfbaGAMRVPLWYG9467-90-14 22:04:00 Test Item Value Reference Range Interpretation Comments Platelet (test code = Platelet) 382 133-450 [facility] NortheastMjvqijpRPBDCJTSVG7977-53-71 22:04:00 Test Item Value Reference Range Interpretation Comments MCH (test code = MCH) 29.9 pg 27.0-31.0 [facility] NortheastYlngyqeILAAOEHERN3284-00-14 22:04:00 Test Item Value Reference Range Interpretation Comments Hct (test code = Hct) 33.6 36.0-48.0 [facility] NortheastHrslxegUODLKOWZVI3827-48-10 22:04:00 Test Item Value Reference Range Interpretation Comments MCV (test code = MCV) 93.6 80.0-98.0 [facility] NortheastTbwvxoeCCTYRHBMDJ6926-81-08 22:04:00 Test Item Value Reference Range Interpretation Comments RBC (test code = RBC) 3.59 4.20-5.40 [facility] NortheastZmbarpgXHNWLBVURA4007-89-59 22:04:00 Test Item Value Reference Range Interpretation Comments Hgb (test code = Hgb) 10.7 12.0-16.0 [facility] NortheastGpsdskrRSMTZSIMQS7326-06-75 22:04:00 Test Item Value Reference Range Interpretation Comments MCHC (test code = MCHC) 31.9 32.0-36.0 [facility] NortheastXcgmkzqDRDMXPUSXQ2914-94-45 22:04:00 Test Item Value Reference Range Interpretation Comments WBC (test code = WBC) 6.5 3.7-10.4 [facility] NortheastMzyzgagQOMAKMXUBD8930-89-17 22:04:00 Test Item Value Reference Range Interpretation Comments RDW (test code = RDW) 15.6 11.5-14.5 [facility] NortheastJycobczYTKICCEUGT1507-88-03 22:04:00 Test Item Value Reference Range Interpretation Comments MPV (test code = MPV) 7.0 7.4-10.4 [facility] NortheastAtjdveyUTWRCZMPCM1618-75-37 22:04:00 Test Item Value Reference Range Interpretation Comments Platelet (test code = Platelet) 382 133-450 [facility] NortheastQxjpdbbXSDTNQZSEF9372-16-41 22:04:00 Test Item Value Reference Range Interpretation Comments MCH (test code = MCH) 29.9 pg 27.0-31.0 [facility] NortheastIhnjqpqXEIFEYNISW8539-77-27 22:04:00 Test Item Value Reference Range Interpretation Comments Hct (test code = Hct) 33.6 36.0-48.0 [facility] NortheastUwlmpwmTGBUVAXYIH8921-79-84 22:04:00 Test Item Value Reference Range Interpretation Comments MCV (test code = MCV) 93.6 80.0-98.0 [facility] NortheastDovqjqqCHKADEKWHP1851-35-23 22:04:00 Test Item Value Reference Range Interpretation Comments RBC (test code = RBC) 3.59 4.20-5.40 [facility] NortheastBsettzwCMXKWFLPZQ6173-20-44 22:04:00 Test Item Value Reference Range Interpretation Comments Hgb (test code = Hgb) 10.7 12.0-16.0 [facility] NortheastQykahhpAUXTXJOJCA5934-83-64 22:04:00 Test Item Value Reference Range Interpretation Comments MCHC (test code = MCHC) 31.9 32.0-36.0 [facility] NortheastGpjwdaqDHHZYDQDKG5034-60-53 22:04:00 Test Item Value Reference Range Interpretation Comments WBC (test code = WBC) 6.5 3.7-10.4 [facility] NortheastSrzkgxvMNXVRDDWHG2504-43-43 22:04:00 Test Item Value Reference Range Interpretation Comments RDW (test code = RDW) 15.6 11.5-14.5 [facility] NortheastEokvrhmSRMYRLMAVV9152-76-24 22:04:00 Test Item Value Reference Range Interpretation Comments MPV (test code = MPV) 7.0 7.4-10.4 [facility] NortheastDqjnrvuXJCLCZVIJW9349-45-83 22:04:00 Test Item Value Reference Range Interpretation Comments Platelet (test code = Platelet) 382 133-450 [facility] NortheastTwgnfyoWZRSJQHTVQ4289-34-91 22:04:00 Test Item Value Reference Range Interpretation Comments MCH (test code = MCH) 29.9 pg 27.0-31.0 [facility] NortheastUyewtgwFYJYYMGGIU8914-96-71 22:04:00 Test Item Value Reference Range Interpretation Comments Hct (test code = Hct) 33.6 36.0-48.0 [facility] NortheastFoxjqebZASDIXSJBS3281-47-54 22:04:00 Test Item Value Reference Range Interpretation Comments MCV (test code = MCV) 93.6 80.0-98.0 [facility] NortheastZgcqtisABHLCVYNCB1228-54-62 22:04:00 Test Item Value Reference Range Interpretation Comments RBC (test code = RBC) 3.59 4.20-5.40 [facility] NortheastNedeodjGVGZJGMOIW2993-77-62 22:04:00 Test Item Value Reference Range Interpretation Comments Hgb (test code = Hgb) 10.7 12.0-16.0 [facility] NortheastOkxuvekVXTTDYEGZO3809-81-16 22:04:00 Test Item Value Reference Range Interpretation Comments MCHC (test code = MCHC) 31.9 32.0-36.0 [facility] NortheastQuuwxyfRHGDYTRXOU2819-78-63 22:04:00 Test Item Value Reference Range Interpretation Comments WBC (test code = WBC) 6.5 3.7-10.4 [facility] NortheastXsaledqZCXYWBEDNG7066-66-89 22:04:00 Test Item Value Reference Range Interpretation Comments RDW (test code = RDW) 15.6 11.5-14.5 [facility] NortheastTweyyakAJYHKHWGQJ6528-29-67 22:04:00 Test Item Value Reference Range Interpretation Comments MPV (test code = MPV) 7.0 7.4-10.4 [facility] NortheastIikuniqJISBCPZIQX8701-38-49 22:04:00 Test Item Value Reference Range Interpretation Comments Platelet (test code = Platelet) 382 133-450 [facility] NortheastInpsvrlENPCVHHIVJ9305-26-84 22:04:00 Test Item Value Reference Range Interpretation Comments MCH (test code = MCH) 29.9 pg 27.0-31.0 [facility] NortheastZsvrxjiASQGIGWCET1317-76-71 22:04:00 Test Item Value Reference Range Interpretation Comments Hct (test code = Hct) 33.6 36.0-48.0 [facility] NortheastFfttjlpJTBFOZFZJX2709-06-79 22:04:00 Test Item Value Reference Range Interpretation Comments MCV (test code = MCV) 93.6 80.0-98.0 [facility] NortheastMsjmiifCHNLFVKFFJ9905-09-30 22:04:00 Test Item Value Reference Range Interpretation Comments RBC (test code = RBC) 3.59 4.20-5.40 [facility] NortheastVcpazsbSRTBUAWKTJ7906-60-69 22:04:00 Test Item Value Reference Range Interpretation Comments Hgb (test code = Hgb) 10.7 12.0-16.0 [facility] NortheastYlvullbYPKWSVLAJM0629-08-07 22:04:00 Test Item Value Reference Range Interpretation Comments MCHC (test code = MCHC) 31.9 32.0-36.0 [facility] NortheastMugiwytSGNUSIFKPV4493-29-75 22:04:00 Test Item Value Reference Range Interpretation Comments WBC (test code = WBC) 6.5 3.7-10.4 [facility] NortheastHfztsikAPIZVMNUFA2075-35-35 22:04:00 Test Item Value Reference Range Interpretation Comments RDW (test code = RDW) 15.6 11.5-14.5 [facility] NortheastNfddbruLRNMPMGRQD3195-42-39 22:04:00 Test Item Value Reference Range Interpretation Comments MPV (test code = MPV) 7.0 7.4-10.4 [facility] NortheastJfxkxnmABLYLSUDUQ7857-09-15 22:04:00 Test Item Value Reference Range Interpretation Comments Platelet (test code = Platelet) 382 133-450 [facility] NortheastSalwoayKNOQNAJZRD6661-76-48 22:04:00 Test Item Value Reference Range Interpretation Comments MCH (test code = MCH) 29.9 pg 27.0-31.0 [facility] NortheastNiprpopEXLYCJEVEU7805-35-17 22:04:00 Test Item Value Reference Range Interpretation Comments Hct (test code = Hct) 33.6 36.0-48.0 [facility] NortheastJwrutujSSFVVVIVAM3669-75-54 22:04:00 Test Item Value Reference Range Interpretation Comments MCV (test code = MCV) 93.6 80.0-98.0 [facility] NortheastQwndvuoMVWUDZEUZV8863-39-85 22:04:00 Test Item Value Reference Range Interpretation Comments RBC (test code = RBC) 3.59 4.20-5.40 [facility] NortheastHlovjmsJFDRRWSVPF8620-67-97 22:04:00 Test Item Value Reference Range Interpretation Comments Hgb (test code = Hgb) 10.7 12.0-16.0 [facility] NortheastNsyopzuTJKFJOCMRY7996-74-57 22:04:00 Test Item Value Reference Range Interpretation Comments MCHC (test code = MCHC) 31.9 32.0-36.0 [facility] NortheastTxbqmtpSYEKJBLWZY2654-31-75 22:04:00 Test Item Value Reference Range Interpretation Comments WBC (test code = WBC) 6.5 3.7-10.4 [facility] NortheastTvrnlbvDRTYXNMZBG6618-35-89 22:04:00 Test Item Value Reference Range Interpretation Comments RDW (test code = RDW) 15.6 11.5-14.5 [facility] NortheastQyyokhrMRVQFAGAQD9860-29-48 22:04:00 Test Item Value Reference Range Interpretation Comments MPV (test code = MPV) 7.0 7.4-10.4 [facility] NortheastFjprfuiQVGYANIGLO8983-02-44 22:04:00 Test Item Value Reference Range Interpretation Comments Platelet (test code = Platelet) 382 133-450 [facility] NortheastGnpvdmyIXANIHARPP3891-92-21 22:04:00 Test Item Value Reference Range Interpretation Comments MCH (test code = MCH) 29.9 pg 27.0-31.0 [facility] NortheastFawvqsaVWLAAVGYCR9042-14-49 22:04:00 Test Item Value Reference Range Interpretation Comments Hct (test code = Hct) 33.6 36.0-48.0 [facility] NortheastMyyagqsVWPGSZIWHO5909-44-52 22:04:00 Test Item Value Reference Range Interpretation Comments MCV (test code = MCV) 93.6 80.0-98.0 [facility] NortheastZynerafRVOBDTWABV4221-64-11 22:04:00 Test Item Value Reference Range Interpretation Comments RBC (test code = RBC) 3.59 4.20-5.40 [facility] NortheastRpxtjinGEQZADCEIH7011-00-95 22:04:00 Test Item Value Reference Range Interpretation Comments Hgb (test code = Hgb) 10.7 12.0-16.0 [facility] NortheastBgfgpoaYLVPSCEMEA0376-46-00 22:04:00 Test Item Value Reference Range Interpretation Comments MCHC (test code = MCHC) 31.9 32.0-36.0 [facility] NortheastJzsltevDBRAPQLRKR7809-53-29 22:04:00 Test Item Value Reference Range Interpretation Comments WBC (test code = WBC) 6.5 3.7-10.4 [facility] NortheastQffwktmAWURYYWLWD8075-69-17 22:04:00 Test Item Value Reference Range Interpretation Comments RDW (test code = RDW) 15.6 11.5-14.5 [facility] NortheastSnexohtRKUHJMPZQY7999-50-25 22:04:00 Test Item Value Reference Range Interpretation Comments MPV (test code = MPV) 7.0 7.4-10.4 [facility] NortheastBjupnbmVGFFDANQTX3917-69-66 22:04:00 Test Item Value Reference Range Interpretation Comments Platelet (test code = Platelet) 382 133-450 [facility]CeheomsFQLSPEEBGB9593-94-23 22:04:00 Test Item Value Reference Range Interpretation Comments MCH (test code = MCH) 29.9 pg 27.0-31.0 [facility] NortheastMkitexkKFNDAGVXDH8637-91-69 22:04:00 Test Item Value Reference Range Interpretation Comments Hct (test code = Hct) 33.6 36.0-48.0 [facility] NortheastHrpxevzYWJUUEKTWP4478-37-28 22:04:00 Test Item Value Reference Range Interpretation Comments MCV (test code = MCV) 93.6 80.0-98.0 [facility] NortheastSbkucetYHQAKMYJPB4118-16-02 22:04:00 Test Item Value Reference Range Interpretation Comments RBC (test code = RBC) 3.59 4.20-5.40 [facility]HginlwuFEWMEVLKSZ2820-95-80 22:04:00 Test Item Value Reference Range Interpretation Comments Hgb (test code = Hgb) 10.7 12.0-16.0 [facility] NortheastYzskjwaZCVMTTFQWL3881-22-92 22:04:00 Test Item Value Reference Range Interpretation Comments MCHC (test code = MCHC) 31.9 32.0-36.0 [facility] NortheastNzrosncVEGNXNGVAY5537-05-34 22:04:00 Test Item Value Reference Range Interpretation Comments WBC (test code = WBC) 6.5 3.7-10.4 [facility] NortheastDmjtbkoWDBPHEAGYS9708-31-91 22:04:00 Test Item Value Reference Range Interpretation Comments RDW (test code = RDW) 15.6 11.5-14.5 [facility] NortheastLdwzeliURVHYMPIML3099-22-00 22:04:00 Test Item Value Reference Range Interpretation Comments MPV (test code = MPV) 7.0 7.4-10.4 [facility] NortheastSdbogcrXIXXTLJAFR8220-57-94 22:04:00 Test Item Value Reference Range Interpretation Comments Platelet (test code = Platelet) 382 133-450 [facility] NortheastGlodxwrWMGFIIEBFS3321-26-71 22:04:00 Test Item Value Reference Range Interpretation Comments MCH (test code = MCH) 29.9 pg 27.0-31.0 [facility] NortheastFtrmkghPZQIZBQOAZ5484-65-78 22:04:00 Test Item Value Reference Range Interpretation Comments Hct (test code = Hct) 33.6 36.0-48.0 [facility] NortheastHzjjikbCRDQAFFNBO5921-56-61 22:04:00 Test Item Value Reference Range Interpretation Comments MCV (test code = MCV) 93.6 80.0-98.0 [facility] NortheastOhmaehwMYZBOOGSII0306-12-03 22:04:00 Test Item Value Reference Range Interpretation Comments RBC (test code = RBC) 3.59 4.20-5.40 [facility] NortheastVxwndmxAYIVRNOAMT7114-65-66 22:04:00 Test Item Value Reference Range Interpretation Comments Hgb (test code = Hgb) 10.7 12.0-16.0 [facility] NortheastCldpkzzVSPLESEPZZ8140-32-79 22:04:00 Test Item Value Reference Range Interpretation Comments MCHC (test code = MCHC) 31.9 32.0-36.0 [facility] NortheastHcaabnrKYPVUCSIOP9447-12-04 22:04:00 Test Item Value Reference Range Interpretation Comments WBC (test code = WBC) 6.5 3.7-10.4 [facility] NortheastLqcapejNMGEHBOMGP6252-54-82 22:04:00 Test Item Value Reference Range Interpretation Comments RDW (test code = RDW) 15.6 11.5-14.5 [facility] NortheastWmuadosSGPUHNVTSX3740-23-67 22:04:00 Test Item Value Reference Range Interpretation Comments MPV (test code = MPV) 7.0 7.4-10.4 [place] 407859-06-18 22:04:00 Test Item Value Reference Range Interpretation Comments Platelet (test code = Platelet) 382 133-450 [facility] NortheastUmmlnzwIUFNGQSOSB8964-10-67 22:04:00 Test Item Value Reference Range Interpretation Comments MCH (test code = MCH) 29.9 pg 27.0-31.0 [facility] NortheastOvkftmiLEPULXADEG2190-10-10 22:04:00 Test Item Value Reference Range Interpretation Comments Hct (test code = Hct) 33.6 36.0-48.0 [facility] NortheastXvcpiizNWMRYYQDES2961-25-34 22:04:00 Test Item Value Reference Range Interpretation Comments MCV (test code = MCV) 93.6 80.0-98.0 [facility] NortheastOixorjaHYWOLZISHA3284-33-75 22:04:00 Test Item Value Reference Range Interpretation Comments RBC (test code = RBC) 3.59 4.20-5.40 [facility] NortheastAnjgsiyPPJPTJDNLI0578-94-61 22:04:00 Test Item Value Reference Range Interpretation Comments Hgb (test code = Hgb) 10.7 12.0-16.0 [facility] NortheastNllbearJQCPXPSBDM2110-04-47 22:04:00 Test Item Value Reference Range Interpretation Comments MCHC (test code = MCHC) 31.9 32.0-36.0 [facility] NortheastGyvyxjfTWPHQUIZIE2251-23-41 22:04:00 Test Item Value Reference Range Interpretation Comments WBC (test code = WBC) 6.5 3.7-10.4 [facility]2019-06-15 11:20:00 Test Item Value Reference Range Interpretation Comments Phosphorus (test code = Phosphorus) 3.8 2.5-4.5 [facility] URLMK4517-26-37 11:20:00 Test Item Value Reference Range Interpretation Comments Magnesium Lvl (test code = Magnesium 2.1 1.8-2.4 Lvl) [facility] NortheastAnbmlxfRTCNCKNZCZ7910-76-83 11:20:00 Test Item Value Reference Range Interpretation Comments Hgb (test code = Hgb) 9.9 12.0-16.0 [facility] NortheastFttngyrCLHOGUYYZY7686-17-64 11:20:00 Test Item Value Reference Range Interpretation Comments RDW (test code = RDW) 15.8 11.5-14.5 [facility] NortheastDcbcemgQSRDXQVWHT6852-99-22 11:20:00 Test Item Value Reference Range Interpretation Comments WBC (test code = WBC) 9.9 3.7-10.4 [facility] NortheastAfavgqvVEFSZLWSAH3267-39-86 11:20:00 Test Item Value Reference Range Interpretation Comments Platelet (test code = Platelet) 355 808-450 [facility] NortheastQuzhwcmFEZTSYSQLO9864-10-90 11:20:00 Test Item Value Reference Range Interpretation Comments Hct (test code = Hct) 29.0 36.0-48.0 [facility] NortheastSzlhztkLEQXLUEJWI1253-01-08 11:20:00 Test Item Value Reference Range Interpretation Comments MCH (test code = MCH) 31.6 pg 27.0-31.0 [facility] NortheastOoefkmkOBZHJVNKNR5158-58-99 11:20:00 Test Item Value Reference Range Interpretation Comments MCV (test code = MCV) 92.3 80.0-98.0 [facility] NortheastTrbauaeCLJJNYBYFM5146-55-89 11:20:00 Test Item Value Reference Range Interpretation Comments RBC (test code = RBC) 3.14 4.20-5.40 [facility] NortheastWbumkblYZLHHRAFQR9016-59-83 11:20:00 Test Item Value Reference Range Interpretation Comments MPV (test code = MPV) 7.1 7.4-10.4 [facility] NortheastPekplxzQGOCGWMYAF5547-07-12 11:20:00 Test Item Value Reference Range Interpretation Comments MCHC (test code = MCHC) 34.3 32.0-36.0 [facility] NortheastZyplnhuVDXVBQYSZR3246-89-81 11:20:00 Test Item Value Reference Range Interpretation Comments Lymphocytes # (test code = Lymphocytes 1.7 1.0-5.5 #) [facility] NortheastAgglfonCPXONTCAKQ3004-71-70 11:20:00 Test Item Value Reference Range Interpretation Comments Monocytes # (test code = Monocytes #) 0.6 <=0.8 [facility] NortheastMadhaqrNBQUXMVWTN0305-46-82 11:20:00 Test Item Value Reference Range Interpretation Comments Basophils # (test code = Basophils #) 0.1 <=0.2 [facility] NortheastLzhvlclXLTFYUKFES6383-10-74 11:20:00 Test Item Value Reference Range Interpretation Comments Eosinophils # (test code = Eosinophils 0.7 <=0.5 #) [facility] NortheastTetwmawHVNJUBAFRK5465-74-73 11:20:00 Test Item Value Reference Range Interpretation Comments Basophils (test code = Basophils) 0.5 <=1.0 [facility] NortheastQqifmvuGZZVYAYSNW9163-85-23 11:20:00 Test Item Value Reference Range Interpretation Comments Eosinophils (test code = Eosinophils) 7.3 <=4.0 [facility] NortheastFefhsoiLTQPPQWVPU7715-94-39 11:20:00 Test Item Value Reference Range Interpretation Comments Neutrophils # (test code = Neutrophils 6.8 1.5-8.1 #) [facility] NortheastHnvhnlpQOOTIWABYT0192-96-40 11:20:00 Test Item Value Reference Range Interpretation Comments Monocytes (test code = Monocytes) 5.7 2.0-12.0 [facility] NortheastXtdnregSMIDZPDVXC5870-26-64 11:20:00 Test Item Value Reference Range Interpretation Comments Lymphocytes (test code = Lymphocytes) 17.4 20.0-40.0 [facility] NortheastAmbxcwsTFABDJUXBE0694-11-09 11:20:00 Test Item Value Reference Range Interpretation Comments Segs (test code = Segs) 69.1 45.0-75.0 [facility] NortheastHnrhyedKFFVQXUJHV8633-83-45 11:20:00 Test Item Value Reference Range Interpretation Comments Basophils (test code = 0.5 See_Comment [Aut omated message] The Basophils) system which ge nerated this result tra nsmitted reference range : <=1.0. The reference r andreia was not used to int erpret this result as normal/abnormal . [facility] NortheastTyhiwwtKSXRVZWDCG6929-28-40 11:20:00 Test Item Value Reference Range Interpretation Comments Eosinophils (test code = 7.3 See_Comment [A utomated message] The Eosinophils) system which ge nerated this result tra nsmitted reference range : <=4.0. The reference r andreia was not used to int erpret this result as normal/abnormal . [facility] NortheastMnzcyyoNOJPZQAYTV2938-97-70 11:20:00 Test Item Value Reference Range Interpretation Comments Neutrophils # (test code = Neutrophils 6.8 1.5-8.1 #) [facility] NortheastUwfmcpmZOFGQRCUDB5241-56-62 11:20:00 Test Item Value Reference Range Interpretation Comments Monocytes (test code = Monocytes) 5.7 2.0-12.0 [facility] NortheastJfvocclCUXOADLDBV4664-81-88 11:20:00 Test Item Value Reference Range Interpretation Comments Lymphocytes (test code = Lymphocytes) 17.4 20.0-40.0 [facility] NortheastRbsfsblKUPENURGLL6748-28-51 11:20:00 Test Item Value Reference Range Interpretation Comments Segs (test code = Segs) 69.1 45.0-75.0 [facility] MFQFA4417-74-46 11:20:00 Test Item Value Reference Range Interpretation Comments Phosphorus (test code = Phosphorus) 3.8 2.5-4.5 [facility] VJROJ7567-84-77 11:20:00 Test Item Value Reference Range Interpretation Comments Magnesium Lvl (test code = Magnesium 2.1 1.8-2.4 Lvl) [facility] NortheastAuyikzxXHRTZDNTNW8676-24-31 11:20:00 Test Item Value Reference Range Interpretation Comments Hgb (test code = Hgb) 9.9 12.0-16.0 [facility] NortheastIpsmeblJMSDHEMCMN0325-32-11 11:20:00 Test Item Value Reference Range Interpretation Comments RDW (test code = RDW) 15.8 11.5-14.5 [facility] NortheastJqxtjimOLEKCCJDMB5267-80-08 11:20:00 Test Item Value Reference Range Interpretation Comments WBC (test code = WBC) 9.9 3.7-10.4 [facility] NortheastSosqwniOVTERSRAPA4368-78-99 11:20:00 Test Item Value Reference Range Interpretation Comments Platelet (test code = Platelet) 355 133-450 [facility] NortheastXqtccevQKRATBGQBC3323-60-58 11:20:00 Test Item Value Reference Range Interpretation Comments Hct (test code = Hct) 29.0 36.0-48.0 [facility] NortheastWyaemwaAKLROJPRCL8621-85-88 11:20:00 Test Item Value Reference Range Interpretation Comments MCH (test code = MCH) 31.6 pg 27.0-31.0 [facility] NortheastQvwwxpjKAASUOVJLY4609-27-68 11:20:00 Test Item Value Reference Range Interpretation Comments MCV (test code = MCV) 92.3 80.0-98.0 [facility] NortheastNnkxgbiXTHLRSKXZR9278-65-42 11:20:00 Test Item Value Reference Range Interpretation Comments RBC (test code = RBC) 3.14 4.20-5.40 [facility] NortheastJsdhoqsBASIKBZJSD2203-94-68 11:20:00 Test Item Value Reference Range Interpretation Comments MPV (test code = MPV) 7.1 7.4-10.4 [facility] NortheastVjaboozBMWITZDHHB9035-43-30 11:20:00 Test Item Value Reference Range Interpretation Comments MCHC (test code = MCHC) 34.3 32.0-36.0 [facility] NortheastTfvconlSLCDOIVWQX4510-35-84 11:20:00 Test Item Value Reference Range Interpretation Comments Lymphocytes # (test code = Lymphocytes 1.7 1.0-5.5 #) [facility] NortheastGiklnpxFKDCHFPGGA5492-31-69 11:20:00 Test Item Value Reference Range Interpretation Comments Monocytes # (test code 0.6 See_Comment [Aut omated message] The = Monocytes #) system which generated this result tra nsmitted reference range : <=0.8. The reference r andreia was not used to int erpret this result as normal/abnormal . [facility] NortheastJgmtwraDSFRZPXJER2998-90-19 11:20:00 Test Item Value Reference Range Interpretation Comments Basophils # (test code 0.1 See_Comment [Aut omated message] The = Basophils #) system which generated this result tra nsmitted reference range : <=0.2. The reference r andreia was not used to int erpret this result as normal/abnormal . [facility] NortheastMzmnilnJTAGUZGZRZ6283-76-75 11:20:00 Test Item Value Reference Range Interpretation Comments Eosinophils # (test code 0.7 See_Comment [A utomated message] The = Eosinophils #) system whic h generated this result tra nsmitted reference range : <=0.5. The reference r andreia was not used to int erpret this result as normal/abnormal . [facility] NortheastYecovcjDIDXPPPNLX8706-37-00 11:20:00 Test Item Value Reference Range Interpretation Comments Basophils (test code = 0.5 See_Comment [Aut omated message] The Basophils) system which ge nerated this result tra nsmitted reference range : <=1.0. The reference r andreia was not used to int erpret this result as normal/abnormal . [facility] NortheastQiqchplFOXQIOQLQJ1236-30-74 11:20:00 Test Item Value Reference Range Interpretation Comments Eosinophils (test code = 7.3 See_Comment [A utomated message] The Eosinophils) system which ge nerated this result tra nsmitted reference range : <=4.0. The reference r andreia was not used to int erpret this result as normal/abnormal . [facility] NortheastFcxyiptHIVSMAKXLR8651-75-30 11:20:00 Test Item Value Reference Range Interpretation Comments Neutrophils # (test code = Neutrophils 6.8 1.5-8.1 #) [facility] NortheastZtydbjoWQSMRLCIKP5410-43-60 11:20:00 Test Item Value Reference Range Interpretation Comments Monocytes (test code = Monocytes) 5.7 2.0-12.0 [facility] NortheastFpcptweMBSOUDGZEC3007-68-18 11:20:00 Test Item Value Reference Range Interpretation Comments Lymphocytes (test code = Lymphocytes) 17.4 20.0-40.0 [facility] NortheastTizwafnPURKZAYZPP8616-15-38 11:20:00 Test Item Value Reference Range Interpretation Comments Segs (test code = Segs) 69.1 45.0-75.0 [facility]2019-06-15 11:20:00 Test Item Value Reference Range Interpretation Comments Phosphorus (test code = Phosphorus) 3.8 2.5-4.5 [facility]2019-06-15 11:20:00 Test Item Value Reference Range Interpretation Comments Magnesium Lvl (test code = Magnesium 2.1 1.8-2.4 Lvl) [facility] NortheastLjlozhiVWSICMOFLU8008-43-94 11:20:00 Test Item Value Reference Range Interpretation Comments Hgb (test code = Hgb) 9.9 12.0-16.0 [facility] NortheastXikcjqvZDFSYBECHB7879-56-63 11:20:00 Test Item Value Reference Range Interpretation Comments RDW (test code = RDW) 15.8 11.5-14.5 [facility] NortheastJdosmwwOXQZRUGFPT0689-74-02 11:20:00 Test Item Value Reference Range Interpretation Comments WBC (test code = WBC) 9.9 3.7-10.4 [facility] NortheastDihyeauBYZONESPXO4140-33-36 11:20:00 Test Item Value Reference Range Interpretation Comments Platelet (test code = Platelet) 355 133-450 [facility] NortheastXearjnnUZQGSAXAHA9217-25-30 11:20:00 Test Item Value Reference Range Interpretation Comments Hct (test code = Hct) 29.0 36.0-48.0 [facility] NortheastUjkbtvzGIXNTAGCJE5054-87-72 11:20:00 Test Item Value Reference Range Interpretation Comments MCH (test code = MCH) 31.6 pg 27.0-31.0 [facility] NortheastXnmqlquJGGXJNTYCP0955-44-43 11:20:00 Test Item Value Reference Range Interpretation Comments MCV (test code = MCV) 92.3 80.0-98.0 [place] 407859-06-15 11:20:00 Test Item Value Reference Range Interpretation Comments RBC (test code = RBC) 3.14 4.20-5.40 [facility] NortheastYalfvofGSUZXBIBXB9206-11-10 11:20:00 Test Item Value Reference Range Interpretation Comments MPV (test code = MPV) 7.1 7.4-10.4 [facility] NortheastFrncdbhWJDBSYMZMR6131-80-98 11:20:00 Test Item Value Reference Range Interpretation Comments MCHC (test code = MCHC) 34.3 32.0-36.0 [facility] NortheastKcjwgyvFOQTTNWFDH1077-50-47 11:20:00 Test Item Value Reference Range Interpretation Comments Lymphocytes # (test code = Lymphocytes 1.7 1.0-5.5 #) [facility] NortheastYynydwnBTIYCQRGTX2934-79-72 11:20:00 Test Item Value Reference Range Interpretation Comments Monocytes # (test code 0.6 See_Comment [Aut omated message] The = Monocytes #) system which generated this result tra nsmitted reference range : <=0.8. The reference r andreia was not used to int erpret this result as normal/abnormal . [facility] NortheastJqixsrvRQUKLVMVNP1589-45-38 11:20:00 Test Item Value Reference Range Interpretation Comments Basophils # (test code 0.1 See_Comment [Aut omated message] The = Basophils #) system which generated this result tra nsmitted reference range : <=0.2. The reference r andreia was not used to int erpret this result as normal/abnormal . [facility] NortheastKmusevxJXNFYXRSLC7289-26-91 11:20:00 Test Item Value Reference Range Interpretation Comments Eosinophils # (test code 0.7 See_Comment [A utomated message] The = Eosinophils #) system whic h generated this result tra nsmitted reference range : <=0.5. The reference r andreia was not used to int erpret this result as normal/abnormal . [facility] NortheastLqbtgqhYXHHKUMSGX6231-56-70 11:20:00 Test Item Value Reference Range Interpretation Comments Basophils (test code = 0.5 See_Comment [Aut omated message] The Basophils) system which ge nerated this result tra nsmitted reference range : <=1.0. The reference r andreia was not used to int erpret this result as normal/abnormal . [facility] NortheastXcuxddtVEYZLYVJKN6511-62-47 11:20:00 Test Item Value Reference Range Interpretation Comments Eosinophils (test code = 7.3 See_Comment [A utomated message] The Eosinophils) system which ge nerated this result tra nsmitted reference range : <=4.0. The reference r andreia was not used to int erpret this result as normal/abnormal . [facility] NortheastCocifdoKCMWYXBFAE9214-32-36 11:20:00 Test Item Value Reference Range Interpretation Comments Neutrophils # (test code = Neutrophils 6.8 1.5-8.1 #) [facility] NortheastRlmlplrRYKQYSHHFQ0542-74-64 11:20:00 Test Item Value Reference Range Interpretation Comments Monocytes (test code = Monocytes) 5.7 2.0-12.0 [facility] NortheastEaouudoGJMQDREYPY0916-09-77 11:20:00 Test Item Value Reference Range Interpretation Comments Lymphocytes (test code = Lymphocytes) 17.4 20.0-40.0 [facility] NortheastYhnrrvaPDITADWMNZ0735-90-46 11:20:00 Test Item Value Reference Range Interpretation Comments Segs (test code = Segs) 69.1 45.0-75.0 [facility] DROCU2948-87-96 11:20:00 Test Item Value Reference Range Interpretation Comments Phosphorus (test code = Phosphorus) 3.8 2.5-4.5 [facility] IVWPU0372-19-25 11:20:00 Test Item Value Reference Range Interpretation Comments Magnesium Lvl (test code = Magnesium 2.1 1.8-2.4 Lvl) [facility] NortheastYtwdbcgWZQIQZSLKR9860-32-94 11:20:00 Test Item Value Reference Range Interpretation Comments Hgb (test code = Hgb) 9.9 12.0-16.0 [facility] NortheastVohmhdgBNGGGWOKJP7765-96-87 11:20:00 Test Item Value Reference Range Interpretation Comments RDW (test code = RDW) 15.8 11.5-14.5 [facility] NortheastMeifzulAEVFPFROYT4849-93-70 11:20:00 Test Item Value Reference Range Interpretation Comments WBC (test code = WBC) 9.9 3.7-10.4 [facility] NortheastMvboxxcMRFOGCRBQH7275-58-55 11:20:00 Test Item Value Reference Range Interpretation Comments Platelet (test code = Platelet) 355 133-450 [facility] NortheastYwctrssZBMPWUJAHP2077-29-15 11:20:00 Test Item Value Reference Range Interpretation Comments Hct (test code = Hct) 29.0 36.0-48.0 [facility] NortheastLogeohcMXDUAANXFA4319-82-35 11:20:00 Test Item Value Reference Range Interpretation Comments MCH (test code = MCH) 31.6 pg 27.0-31.0 [facility] NortheastWgscuexBMJDGWCYVR7098-64-31 11:20:00 Test Item Value Reference Range Interpretation Comments MCV (test code = MCV) 92.3 80.0-98.0 [facility] NortheastDpyudcrCWIBROVEGG4744-55-38 11:20:00 Test Item Value Reference Range Interpretation Comments RBC (test code = RBC) 3.14 4.20-5.40 [facility] NortheastLraltchTWBIJVHNNZ0296-78-36 11:20:00 Test Item Value Reference Range Interpretation Comments MPV (test code = MPV) 7.1 7.4-10.4 [facility] NortheastXgqtlygLGYOGZDUGU0849-41-36 11:20:00 Test Item Value Reference Range Interpretation Comments MCHC (test code = MCHC) 34.3 32.0-36.0 [facility] NortheastEpoycwsTJVQNDTUHV2968-18-24 11:20:00 Test Item Value Reference Range Interpretation Comments Lymphocytes # (test code = Lymphocytes 1.7 1.0-5.5 #) [facility] NortheastKucysjhEGDFXSCUSX4652-00-63 11:20:00 Test Item Value Reference Range Interpretation Comments Monocytes # (test code 0.6 See_Comment [Aut omated message] The = Monocytes #) system which generated this result tra nsmitted reference range : <=0.8. The reference r andreia was not used to int erpret this result as normal/abnormal . [facility] NortheastOxjbtuaXFEUSWJGOG2319-59-55 11:20:00 Test Item Value Reference Range Interpretation Comments Basophils # (test code 0.1 See_Comment [Aut omated message] The = Basophils #) system which generated this result tra nsmitted reference range : <=0.2. The reference r andreia was not used to int erpret this result as normal/abnormal . [facility] NortheastYlltmajWKZJRZKERY6476-99-36 11:20:00 Test Item Value Reference Range Interpretation Comments Eosinophils # (test code 0.7 See_Comment [A utomated message] The = Eosinophils #) system whic h generated this result tra nsmitted reference range : <=0.5. The reference r andreia was not used to int erpret this result as normal/abnormal . [facility] NortheastHnhsyqaHIREFLXMXD6424-15-11 11:20:00 Test Item Value Reference Range Interpretation Comments Basophils (test code = 0.5 See_Comment [Aut omated message] The Basophils) system which ge nerated this result tra nsmitted reference range : <=1.0. The reference r andreia was not used to int erpret this result as normal/abnormal . [facility] NortheastDkxyxffSGQGSKFJIM1935-24-27 11:20:00 Test Item Value Reference Range Interpretation Comments Eosinophils (test code = 7.3 See_Comment [A utomated message] The Eosinophils) system which ge nerated this result tra nsmitted reference range : <=4.0. The reference r andreia was not used to int erpret this result as normal/abnormal . [facility] NortheastPkaeockKCPNGQSHGB2953-11-86 11:20:00 Test Item Value Reference Range Interpretation Comments Neutrophils # (test code = Neutrophils 6.8 1.5-8.1 #) [facility] NortheastMkkujnsWQRXCRQTDH5714-48-41 11:20:00 Test Item Value Reference Range Interpretation Comments Monocytes (test code = Monocytes) 5.7 2.0-12.0 [facility] NortheastYcjpouoCSLMOIKIQB0987-16-20 11:20:00 Test Item Value Reference Range Interpretation Comments Lymphocytes (test code = Lymphocytes) 17.4 20.0-40.0 [facility] NortheastBaxyurhSCHGFMHWDJ9796-78-29 11:20:00 Test Item Value Reference Range Interpretation Comments Segs (test code = Segs) 69.1 45.0-75.0 [facility]2019-06-15 11:20:00 Test Item Value Reference Range Interpretation Comments Phosphorus (test code = Phosphorus) 3.8 2.5-4.5 [facility]2019-06-15 11:20:00 Test Item Value Reference Range Interpretation Comments Magnesium Lvl (test code = Magnesium 2.1 1.8-2.4 Lvl) [facility] NortheastXrhoiyfCHQKIXPBMV4303-01-50 11:20:00 Test Item Value Reference Range Interpretation Comments Hgb (test code = Hgb) 9.9 12.0-16.0 [facility] NortheastGlczgihWMXYUCNMNY9896-35-62 11:20:00 Test Item Value Reference Range Interpretation Comments RDW (test code = RDW) 15.8 11.5-14.5 [facility] NortheastYbrbeqtSDQMLJSEHQ3146-89-11 11:20:00 Test Item Value Reference Range Interpretation Comments WBC (test code = WBC) 9.9 3.7-10.4 [facility] NortheastOrkbranYZOFBEHCQU2102-62-73 11:20:00 Test Item Value Reference Range Interpretation Comments Platelet (test code = Platelet) 355 133-450 [facility] NortheastOgdyvkuFYBIGTYPSD4177-55-45 11:20:00 Test Item Value Reference Range Interpretation Comments Hct (test code = Hct) 29.0 36.0-48.0 [facility] NortheastJkxhxeqHGGKTZGQER4017-05-09 11:20:00 Test Item Value Reference Range Interpretation Comments MCH (test code = MCH) 31.6 pg 27.0-31.0 [facility]PenekmxPWNYIEJEVQ4139-84-53 11:20:00 Test Item Value Reference Range Interpretation Comments MCV (test code = MCV) 92.3 80.0-98.0 [facility] NortheastWfutulrVEJQPDIEJN7510-46-40 11:20:00 Test Item Value Reference Range Interpretation Comments RBC (test code = RBC) 3.14 4.20-5.40 [facility] NortheastZwyvfsrAASHHMVBWR6041-89-14 11:20:00 Test Item Value Reference Range Interpretation Comments MPV (test code = MPV) 7.1 7.4-10.4 [facility] NortheastMirrnpcLMDGHUPGAZ0883-51-36 11:20:00 Test Item Value Reference Range Interpretation Comments MCHC (test code = MCHC) 34.3 32.0-36.0 [facility] NortheastStrsamyVCQBIHYBUI1040-98-53 11:20:00 Test Item Value Reference Range Interpretation Comments Lymphocytes # (test code = Lymphocytes 1.7 1.0-5.5 #) [facility] NortheastPxukdqzKODSSNREOU7197-47-31 11:20:00 Test Item Value Reference Range Interpretation Comments Monocytes # (test code 0.6 See_Comment [Aut omated message] The = Monocytes #) system which generated this result tra nsmitted reference range : <=0.8. The reference r andreia was not used to int erpret this result as normal/abnormal . [facility] NortheastKylzbvvEBZCMTUEGQ7622-46-91 11:20:00 Test Item Value Reference Range Interpretation Comments Basophils # (test code 0.1 See_Comment [Aut omated message] The = Basophils #) system which generated this result tra nsmitted reference range : <=0.2. The reference r andreia was not used to int erpret this result as normal/abnormal . [facility] NortheastOnokirrGICPSCFJQK9773-66-84 11:20:00 Test Item Value Reference Range Interpretation Comments Eosinophils # (test code 0.7 See_Comment [A utomated message] The = Eosinophils #) system whic h generated this result tra nsmitted reference range : <=0.5. The reference r andreia was not used to int erpret this result as normal/abnormal . [facility] NortheastOunmpcjIJJVTTEOKL2770-22-86 11:20:00 Test Item Value Reference Range Interpretation Comments Basophils (test code = 0.5 See_Comment [Aut omated message] The Basophils) system which ge nerated this result tra nsmitted reference range : <=1.0. The reference r andreia was not used to int erpret this result as normal/abnormal . [facility] NortheastNjgptuxFRQWYDZDAM5242-80-38 11:20:00 Test Item Value Reference Range Interpretation Comments Eosinophils (test code = 7.3 See_Comment [A utomated message] The Eosinophils) system which ge nerated this result tra nsmitted reference range : <=4.0. The reference r andreia was not used to int erpret this result as normal/abnormal . [facility] NortheastJlarxspHEKRDRWODQ1470-30-72 11:20:00 Test Item Value Reference Range Interpretation Comments Neutrophils # (test code = Neutrophils 6.8 1.5-8.1 #) [facility] NortheastFllgfbwHYNQJYHAGN4350-83-97 11:20:00 Test Item Value Reference Range Interpretation Comments Monocytes (test code = Monocytes) 5.7 2.0-12.0 [facility] NortheastNefzpotNUWXHQYFZG2425-58-17 11:20:00 Test Item Value Reference Range Interpretation Comments Lymphocytes (test code = Lymphocytes) 17.4 20.0-40.0 [facility] NortheastUypmtxhBIKWMZXHZP6137-83-46 11:20:00 Test Item Value Reference Range Interpretation Comments Segs (test code = Segs) 69.1 45.0-75.0 [facility]2019-06-15 11:20:00 Test Item Value Reference Range Interpretation Comments Phosphorus (test code = Phosphorus) 3.8 2.5-4.5 [facility]2019-06-15 11:20:00 Test Item Value Reference Range Interpretation Comments Magnesium Lvl (test code = Magnesium 2.1 1.8-2.4 Lvl) [facility] NortheastFltjpbjLXYIAWWQXU9831-06-87 11:20:00 Test Item Value Reference Range Interpretation Comments Hgb (test code = Hgb) 9.9 12.0-16.0 [facility] NortheastCjzkxcpUYDBOPOTOO3874-65-80 11:20:00 Test Item Value Reference Range Interpretation Comments RDW (test code = RDW) 15.8 11.5-14.5 [facility] NortheastSlvtysmOMTCJMNNVZ2432-78-21 11:20:00 Test Item Value Reference Range Interpretation Comments WBC (test code = WBC) 9.9 3.7-10.4 [facility] NortheastFtjhrluJNVEXHUCOK3069-15-54 11:20:00 Test Item Value Reference Range Interpretation Comments Platelet (test code = Platelet) 355 017-450 [facility] NortheastIpxtdewCSVNOONNLZ6235-91-75 11:20:00 Test Item Value Reference Range Interpretation Comments Hct (test code = Hct) 29.0 36.0-48.0 [facility] NortheastNipxrrjDEWCWYYDTJ6356-83-24 11:20:00 Test Item Value Reference Range Interpretation Comments MCH (test code = MCH) 31.6 pg 27.0-31.0 [facility] NortheastWuanmmtLIJGNUIZEE8827-79-40 11:20:00 Test Item Value Reference Range Interpretation Comments MCV (test code = MCV) 92.3 80.0-98.0 [facility] NortheastFpcmacwXINNKKWFQO2813-45-11 11:20:00 Test Item Value Reference Range Interpretation Comments RBC (test code = RBC) 3.14 4.20-5.40 [facility] NortheastGvzblomXLDGJKXFDW0584-97-58 11:20:00 Test Item Value Reference Range Interpretation Comments MPV (test code = MPV) 7.1 7.4-10.4 [facility] NortheastBzlkbraTUNXMQLUGP3178-67-01 11:20:00 Test Item Value Reference Range Interpretation Comments MCHC (test code = MCHC) 34.3 32.0-36.0 [facility] NortheastRpdbvxbEKUOAYDUUX4875-37-97 11:20:00 Test Item Value Reference Range Interpretation Comments Lymphocytes # (test code = Lymphocytes 1.7 1.0-5.5 #) [facility] NortheastGovrmwsPKNGJLETEM4114-66-21 11:20:00 Test Item Value Reference Range Interpretation Comments Monocytes # (test code 0.6 See_Comment [Aut omated message] The = Monocytes #) system which generated this result tra nsmitted reference range : <=0.8. The reference r andreia was not used to int erpret this result as normal/abnormal . [facility] NortheastOiizofoMGCOUXACIE5608-36-53 11:20:00 Test Item Value Reference Range Interpretation Comments Basophils # (test code 0.1 See_Comment [Aut omated message] The = Basophils #) system which generated this result tra nsmitted reference range : <=0.2. The reference r andreia was not used to int erpret this result as normal/abnormal . [facility] NortheastXaqtqtvEPVYRAMOTD0276-58-02 11:20:00 Test Item Value Reference Range Interpretation Comments Eosinophils # (test code 0.7 See_Comment [A utomated message] The = Eosinophils #) system whic h generated this result tra nsmitted reference range : <=0.5. The reference r andreia was not used to int erpret this result as normal/abnormal . [facility] NortheastJsqfayxOKSAVNGYJK7588-13-46 11:20:00 Test Item Value Reference Range Interpretation Comments Basophils (test code = 0.5 See_Comment [Aut omated message] The Basophils) system which ge nerated this result tra nsmitted reference range : <=1.0. The reference r andreia was not used to int erpret this result as normal/abnormal . [facility] NortheastUdqqqrbVJHBFSREFE0934-66-70 11:20:00 Test Item Value Reference Range Interpretation Comments Eosinophils (test code = 7.3 See_Comment [A utomated message] The Eosinophils) system which ge nerated this result tra nsmitted reference range : <=4.0. The reference r andreia was not used to int erpret this result as normal/abnormal . [facility] NortheastXqnuhhiQDSFYXFFBC8551-44-04 11:20:00 Test Item Value Reference Range Interpretation Comments Neutrophils # (test code = Neutrophils 6.8 1.5-8.1 #) [facility] NortheastJjlroxsCRVBFVCUYL8874-49-46 11:20:00 Test Item Value Reference Range Interpretation Comments Monocytes (test code = Monocytes) 5.7 2.0-12.0 [facility] NortheastDeiqtjbFLFOQYMFKS5101-24-43 11:20:00 Test Item Value Reference Range Interpretation Comments Lymphocytes (test code = Lymphocytes) 17.4 20.0-40.0 [facility] NortheastBtcljqpMRDVETDMEU0234-90-18 11:20:00 Test Item Value Reference Range Interpretation Comments Segs (test code = Segs) 69.1 45.0-75.0 [facility] FVMDR4281-38-34 11:20:00 Test Item Value Reference Range Interpretation Comments Phosphorus (test code = Phosphorus) 3.8 2.5-4.5 [facility] NCUXJ0147-48-33 11:20:00 Test Item Value Reference Range Interpretation Comments Magnesium Lvl (test code = Magnesium 2.1 1.8-2.4 Lvl) [facility] NortheastJbeicyeQOQJMRUHOH1952-98-91 11:20:00 Test Item Value Reference Range Interpretation Comments Hgb (test code = Hgb) 9.9 12.0-16.0 [facility] NortheastZemycxrBZUKSUKPCE3063-28-00 11:20:00 Test Item Value Reference Range Interpretation Comments RDW (test code = RDW) 15.8 11.5-14.5 [facility] NortheastChlrownTGFUYXRCCG8279-38-22 11:20:00 Test Item Value Reference Range Interpretation Comments WBC (test code = WBC) 9.9 3.7-10.4 [facility] NortheastEoqjxcdLBHUCDHWUL1897-70-62 11:20:00 Test Item Value Reference Range Interpretation Comments Platelet (test code = Platelet) 355 133-450 [facility] NortheastSmxhgiuEUHYAUBRTA1452-76-12 11:20:00 Test Item Value Reference Range Interpretation Comments Hct (test code = Hct) 29.0 36.0-48.0 [facility] NortheastFskrkcyBAOMTMKMJA3366-05-67 11:20:00 Test Item Value Reference Range Interpretation Comments MCH (test code = MCH) 31.6 pg 27.0-31.0 [facility] NortheastCwieskqSVXJMNGUNV3795-16-14 11:20:00 Test Item Value Reference Range Interpretation Comments MCV (test code = MCV) 92.3 80.0-98.0 [facility] NortheastLvrreobDYPBIWCLCC4440-47-44 11:20:00 Test Item Value Reference Range Interpretation Comments RBC (test code = RBC) 3.14 4.20-5.40 [facility] NortheastWnuqmxiZZQIAOAKIM3727-12-98 11:20:00 Test Item Value Reference Range Interpretation Comments MPV (test code = MPV) 7.1 7.4-10.4 [facility] NortheastVbkxmrsSNHOKHMGXV7043-52-37 11:20:00 Test Item Value Reference Range Interpretation Comments MCHC (test code = MCHC) 34.3 32.0-36.0 [facility] NortheastDrawkmlSGKOKIBBRD2014-47-66 11:20:00 Test Item Value Reference Range Interpretation Comments Lymphocytes # (test code = Lymphocytes 1.7 1.0-5.5 #) [facility] NortheastOrxggnkEZUCDANKXK9968-20-26 11:20:00 Test Item Value Reference Range Interpretation Comments Monocytes # (test code 0.6 See_Comment [Aut omated message] The = Monocytes #) system which generated this result tra nsmitted reference range : <=0.8. The reference r andreia was not used to int erpret this result as normal/abnormal . [facility] NortheastMcuyjvqVRPJAMESDI8489-39-96 11:20:00 Test Item Value Reference Range Interpretation Comments Basophils # (test code 0.1 See_Comment [Aut omated message] The = Basophils #) system which generated this result tra nsmitted reference range : <=0.2. The reference r andreia was not used to int erpret this result as normal/abnormal . [facility] NortheastFalojgwXKKSFGTFTA1478-91-45 11:20:00 Test Item Value Reference Range Interpretation Comments Eosinophils # (test code 0.7 See_Comment [A utomated message] The = Eosinophils #) system [facility] generated this result tra nsmitted reference range : <=0.5. The reference r andreia was not used to int erpret this result as normal/abnormal . [facility] NortheastXlisqicSXQIHTJOUR5594-82-15 11:20:00 Test Item Value Reference Range Interpretation Comments Basophils (test code = 0.5 See_Comment [Aut omated message] The Basophils) system which ge nerated this result tra nsmitted reference range : <=1.0. The reference r andreia was not used to int erpret this result as normal/abnormal . [facility] NortheastSmgjamfVYSUXTSSXP3886-54-88 11:20:00 Test Item Value Reference Range Interpretation Comments Eosinophils (test code = 7.3 See_Comment [A utomated message] The Eosinophils) system which ge nerated this result tra nsmitted reference range : <=4.0. The reference r andreia was not used to int erpret this result as normal/abnormal . [facility] NortheastQwwzdubWNPRPRAKCD6300-03-99 11:20:00 Test Item Value Reference Range Interpretation Comments Neutrophils # (test code = Neutrophils 6.8 1.5-8.1 #) [facility] NortheastZclsmzcDZRQJSNFMR4293-27-55 11:20:00 Test Item Value Reference Range Interpretation Comments Monocytes (test code = Monocytes) 5.7 2.0-12.0 [facility] NortheastWzokkjhGOZVTLKEVJ5951-62-98 11:20:00 Test Item Value Reference Range Interpretation Comments Lymphocytes (test code = Lymphocytes) 17.4 20.0-40.0 [facility] NortheastGkmakdvSCMMZMOPOV2636-36-83 11:20:00 Test Item Value Reference Range Interpretation Comments Segs (test code = Segs) 69.1 45.0-75.0 [facility]2019-06-15 11:20:00 Test Item Value Reference Range Interpretation Comments Phosphorus (test code = Phosphorus) 3.8 2.5-4.5 [facility]2019-06-15 11:20:00 Test Item Value Reference Range Interpretation Comments Magnesium Lvl (test code = Magnesium 2.1 1.8-2.4 Lvl) [facility] NortheastTrjtyunKKSOSCOTYB2048-01-51 11:20:00 Test Item Value Reference Range Interpretation Comments Hgb (test code = Hgb) 9.9 12.0-16.0 [facility] NortheastSlsonpmEWJWTPJBUI6680-98-37 11:20:00 Test Item Value Reference Range Interpretation Comments RDW (test code = RDW) 15.8 11.5-14.5 [facility] NortheastKagkjxlJYYYDFOJRH1620-35-91 11:20:00 Test Item Value Reference Range Interpretation Comments WBC (test code = WBC) 9.9 3.7-10.4 [facility] NortheastIfcvrxyMFKXZBYSBQ8113-19-69 11:20:00 Test Item Value Reference Range Interpretation Comments Platelet (test code = Platelet) 355 133-450 [facility] NortheastQklfzyrGTSRCZQIKC6775-82-04 11:20:00 Test Item Value Reference Range Interpretation Comments Hct (test code = Hct) 29.0 36.0-48.0 [facility] NortheastOvtsjrcGGOZXWANXU1222-26-31 11:20:00 Test Item Value Reference Range Interpretation Comments MCH (test code = MCH) 31.6 pg 27.0-31.0 [facility] NortheastZfylenvFSLEZYFUDF8426-30-56 11:20:00 Test Item Value Reference Range Interpretation Comments MCV (test code = MCV) 92.3 80.0-98.0 [facility] NortheastCqwzrtzOJTURVDDYU7767-40-82 11:20:00 Test Item Value Reference Range Interpretation Comments RBC (test code = RBC) 3.14 4.20-5.40 [facility] NortheastTytyzntZYHKLFMFXK7069-42-81 11:20:00 Test Item Value Reference Range Interpretation Comments MPV (test code = MPV) 7.1 7.4-10.4 [facility] NortheastJnfehpqRUTRDNTTWT2102-69-37 11:20:00 Test Item Value Reference Range Interpretation Comments MCHC (test code = MCHC) 34.3 32.0-36.0 [facility] NortheastOdxfjeeVKCYHMPZEW9069-71-63 11:20:00 Test Item Value Reference Range Interpretation Comments Lymphocytes # (test code = Lymphocytes 1.7 1.0-5.5 #) [facility] NortheastMtxgemoYKAAXCHXSP9814-97-22 11:20:00 Test Item Value Reference Range Interpretation Comments Monocytes # (test code 0.6 See_Comment [Aut omated message] The = Monocytes #) system which generated this result tra nsmitted reference range : <=0.8. The reference r andreia was not used to int erpret this result as normal/abnormal . [facility] NortheastInjzbsvUERFWYXGKJ0641-61-30 11:20:00 Test Item Value Reference Range Interpretation Comments Basophils # (test code 0.1 See_Comment [Aut omated message] The = Basophils #) system which generated this result tra nsmitted reference range : <=0.2. The reference r andreia was not used to int erpret this result as normal/abnormal . [facility] NortheastMkzfnrzJHEPMNLPDK3227-70-17 11:20:00 Test Item Value Reference Range Interpretation Comments Eosinophils # (test code 0.7 See_Comment [A utomated message] The = Eosinophils #) system whic h generated this result tra nsmitted reference range : <=0.5. The reference r andreia was not used to int erpret this result as normal/abnormal . [facility] NortheastOctkzzrNEVJYSQSKS7784-58-53 11:20:00 Test Item Value Reference Range Interpretation Comments Basophils (test code = 0.5 See_Comment [Aut omated message] The Basophils) system which ge nerated this result tra nsmitted reference range : <=1.0. The reference r andreia was not used to int erpret this result as normal/abnormal . [facility] NortheastGihasjnRTVOLKBKXM1639-85-11 11:20:00 Test Item Value Reference Range Interpretation Comments Eosinophils (test code = 7.3 See_Comment [A utomated message] The Eosinophils) system which ge nerated this result tra nsmitted reference range : <=4.0. The reference r andreia was not used to int erpret this result as normal/abnormal . [facility] NortheastLsdppflSMZPWFOPHJ1405-64-77 11:20:00 Test Item Value Reference Range Interpretation Comments Neutrophils # (test code = Neutrophils 6.8 1.5-8.1 #) [facility] NortheastRtxztccVAPBCFYYCK3454-05-39 11:20:00 Test Item Value Reference Range Interpretation Comments Monocytes (test code = Monocytes) 5.7 2.0-12.0 [facility] NortheastTiowcibCVPZLLBFNF2408-52-49 11:20:00 Test Item Value Reference Range Interpretation Comments Lymphocytes (test code = Lymphocytes) 17.4 20.0-40.0 [facility] NortheastAnobyptNLOTZONICK3810-34-79 11:20:00 Test Item Value Reference Range Interpretation Comments Segs (test code = Segs) 69.1 45.0-75.0 [facility]2019-06-15 11:20:00 Test Item Value Reference Range Interpretation Comments Phosphorus (test code = Phosphorus) 3.8 2.5-4.5 [facility]2019-06-15 11:20:00 Test Item Value Reference Range Interpretation Comments Magnesium Lvl (test code = Magnesium 2.1 1.8-2.4 Lvl) [facility] NortheastPrgrpvjAQJIJLFPOF0756-66-63 11:20:00 Test Item Value Reference Range Interpretation Comments Hgb (test code = Hgb) 9.9 12.0-16.0 [facility] NortheastDfzofpoSQSRHCYEWR2692-63-21 11:20:00 Test Item Value Reference Range Interpretation Comments RDW (test code = RDW) 15.8 11.5-14.5 [facility] NortheastHlwuyhaSIJICPCMDO4025-83-71 11:20:00 Test Item Value Reference Range Interpretation Comments WBC (test code = WBC) 9.9 3.7-10.4 [facility] NortheastYiaatvyGQWIUUMWLZ5070-32-03 11:20:00 Test Item Value Reference Range Interpretation Comments Platelet (test code = Platelet) 355 133-450 [facility] NortheastEkhdddjCUAGBAKFIA6818-33-77 11:20:00 Test Item Value Reference Range Interpretation Comments Hct (test code = Hct) 29.0 36.0-48.0 [facility] NortheastJfczzmsBBGOPIBUKW9426-52-57 11:20:00 Test Item Value Reference Range Interpretation Comments MCH (test code = MCH) 31.6 pg 27.0-31.0 [facility] NortheastUpldjfjDNZZTESRCK5842-02-31 11:20:00 Test Item Value Reference Range Interpretation Comments MCV (test code = MCV) 92.3 80.0-98.0 [facility] NortheastXdtirlzKRARLKLMXH7157-50-95 11:20:00 Test Item Value Reference Range Interpretation Comments RBC (test code = RBC) 3.14 4.20-5.40 [facility] NortheastUkmmjbyOECSQRGBOS2828-12-16 11:20:00 Test Item Value Reference Range Interpretation Comments MPV (test code = MPV) 7.1 7.4-10.4 [facility] NortheastUmcdyljVKNRANAZSE1658-56-69 11:20:00 Test Item Value Reference Range Interpretation Comments MCHC (test code = MCHC) 34.3 32.0-36.0 [facility] NortheastZtvqvojEZQGKFCIYK9973-49-56 11:20:00 Test Item Value Reference Range Interpretation Comments Lymphocytes # (test code = Lymphocytes 1.7 1.0-5.5 #) [facility] NortheastLbanvdvRMMCJQNMKK2697-77-90 11:20:00 Test Item Value Reference Range Interpretation Comments Monocytes # (test code 0.6 See_Comment [Aut omated message] The = Monocytes #) system which generated this result tra nsmitted reference range : <=0.8. The reference r andreia was not used to int erpret this result as normal/abnormal . [facility] NortheastXvjxcglLLAHJGRMJA0887-39-69 11:20:00 Test Item Value Reference Range Interpretation Comments Basophils # (test code 0.1 See_Comment [Aut omated message] The = Basophils #) system which generated this result tra nsmitted reference range : <=0.2. The reference r andreia was not used to int erpret this result as normal/abnormal . [facility] NortheastLbqorsmVBHAGOZGLI2852-66-30 11:20:00 Test Item Value Reference Range Interpretation Comments Eosinophils # (test code 0.7 See_Comment [A utomated message] The = Eosinophils #) system whic h generated this result tra nsmitted reference range : <=0.5. The reference r andreia was not used to int erpret this result as normal/abnormal . [facility] NortheastPjdbbgdKTKCPDKGKF0528-85-95 11:20:00 Test Item Value Reference Range Interpretation Comments Basophils (test code = 0.5 See_Comment [Aut omated message] The Basophils) system which ge nerated this result tra nsmitted reference range : <=1.0. The reference r andreia was not used to int erpret this result as normal/abnormal . [facility] NortheastBlrwwihPZWANKSGLL5243-97-26 11:20:00 Test Item Value Reference Range Interpretation Comments Eosinophils (test code = 7.3 See_Comment [A utomated message] The Eosinophils) system which ge nerated this result tra nsmitted reference range : <=4.0. The reference r andreia was not used to int erpret this result as normal/abnormal . [facility] NortheastBwrqsuuQNBVVFVFHJ1621-62-84 11:20:00 Test Item Value Reference Range Interpretation Comments Neutrophils # (test code = Neutrophils 6.8 1.5-8.1 #) [facility] NortheastHiqzhhhODIJAVEBTD7497-70-66 11:20:00 Test Item Value Reference Range Interpretation Comments Monocytes (test code = Monocytes) 5.7 2.0-12.0 [facility] NortheastIfnpprkCVQSDQQZCA4717-17-00 11:20:00 Test Item Value Reference Range Interpretation Comments Lymphocytes (test code = Lymphocytes) 17.4 20.0-40.0 [facility] NortheastLtfupooYWKERSHAEO2753-20-10 11:20:00 Test Item Value Reference Range Interpretation Comments Segs (test code = Segs) 69.1 45.0-75.0 [facility]2019-06-15 11:20:00 Test Item Value Reference Range Interpretation Comments Phosphorus (test code = Phosphorus) 3.8 2.5-4.5 [facility]2019-06-15 11:20:00 Test Item Value Reference Range Interpretation Comments Magnesium Lvl (test code = Magnesium 2.1 1.8-2.4 Lvl) [facility] NortheastJyofuktMCMWZAHBVN7236-44-40 11:20:00 Test Item Value Reference Range Interpretation Comments Hgb (test code = Hgb) 9.9 12.0-16.0 [facility] NortheastZssjacfXQYMVZQZSY6545-09-36 11:20:00 Test Item Value Reference Range Interpretation Comments RDW (test code = RDW) 15.8 11.5-14.5 [facility] NortheastGsiqormOVYLWECSZS1149-75-90 11:20:00 Test Item Value Reference Range Interpretation Comments WBC (test code = WBC) 9.9 3.7-10.4 [facility] NortheastWolhnufUYERSKFLNS5108-53-47 11:20:00 Test Item Value Reference Range Interpretation Comments Platelet (test code = Platelet) 355 133-450 [facility] NortheastMmiaoxpCEKAKBFCWD1229-95-48 11:20:00 Test Item Value Reference Range Interpretation Comments Hct (test code = Hct) 29.0 36.0-48.0 [facility] NortheastLulsortUSKMMFRNNN1673-81-17 11:20:00 Test Item Value Reference Range Interpretation Comments MCH (test code = MCH) 31.6 pg 27.0-31.0 [facility] NortheastAbpwczfVOMCYKCPPC5711-00-17 11:20:00 Test Item Value Reference Range Interpretation Comments MCV (test code = MCV) 92.3 80.0-98.0 [facility] NortheastAmprqerBQHEVAMWIZ5563-94-03 11:20:00 Test Item Value Reference Range Interpretation Comments RBC (test code = RBC) 3.14 4.20-5.40 [facility] NortheastPqecvimWFSFZTMJXH5297-62-62 11:20:00 Test Item Value Reference Range Interpretation Comments MPV (test code = MPV) 7.1 7.4-10.4 [facility] NortheastIkizljpBHTDJLVDAZ5771-65-93 11:20:00 Test Item Value Reference Range Interpretation Comments MCHC (test code = MCHC) 34.3 32.0-36.0 [facility] NortheastZgnfnmzWYLBJJDPDW5527-23-83 11:20:00 Test Item Value Reference Range Interpretation Comments Lymphocytes # (test code = Lymphocytes 1.7 1.0-5.5 #) [facility] NortheastAweyzukACIDMADIDJ1365-28-74 11:20:00 Test Item Value Reference Range Interpretation Comments Monocytes # (test code 0.6 See_Comment [Aut omated message] The = Monocytes #) system which generated this result tra nsmitted reference range : <=0.8. The reference r andreia was not used to int erpret this result as normal/abnormal . [facility] NortheastAkwhfgfBTWUWOWXUP2568-35-21 11:20:00 Test Item Value Reference Range Interpretation Comments Basophils # (test code 0.1 See_Comment [Aut omated message] The = Basophils #) system which generated this result tra nsmitted reference range : <=0.2. The reference r andreia was not used to int erpret this result as normal/abnormal . [facility]DrdkqtiBWKNDOUYFI1711-05-02 11:20:00 Test Item Value Reference Range Interpretation Comments Eosinophils # (test code 0.7 See_Comment [A utomated message] The = Eosinophils #) system whic h generated this result tra nsmitted reference range : <=0.5. The reference r andreia was not used to int erpret this result as normal/abnormal . [facility] NortheastPrvaqcxXIBXCOFUXW1596-85-89 11:20:00 Test Item Value Reference Range Interpretation Comments Basophils (test code = 0.5 See_Comment [Aut omated message] The Basophils) system which ge nerated this result tra nsmitted reference range : <=1.0. The reference r andreia was not used to int erpret this result as normal/abnormal . [facility] NortheastPogbdzmYHSCCUWNWO0457-91-08 11:20:00 Test Item Value Reference Range Interpretation Comments Eosinophils (test code = 7.3 See_Comment [A utomated message] The Eosinophils) system which ge nerated this result tra nsmitted reference range : <=4.0. The reference r andreia was not used to int erpret this result as normal/abnormal . [facility] NortheastNsqcpjdGVMHNFLLNC9975-82-59 11:20:00 Test Item Value Reference Range Interpretation Comments Neutrophils # (test code = Neutrophils 6.8 1.5-8.1 #) [facility] NortheastBuivsqgWGPIWVGXEF0306-90-30 11:20:00 Test Item Value Reference Range Interpretation Comments Monocytes (test code = Monocytes) 5.7 2.0-12.0 [facility] NortheastPpleqisWVCXSZWOJV2437-37-72 11:20:00 Test Item Value Reference Range Interpretation Comments Lymphocytes (test code = Lymphocytes) 17.4 20.0-40.0 [facility] NortheastBzhqpylMJXFPDRMFU9569-57-23 11:20:00 Test Item Value Reference Range Interpretation Comments Segs (test code = Segs) 69.1 45.0-75.0 [facility]2019-06-15 11:20:00 Test Item Value Reference Range Interpretation Comments Phosphorus (test code = Phosphorus) 3.8 2.5-4.5 [facility]2019-06-15 11:20:00 Test Item Value Reference Range Interpretation Comments Magnesium Lvl (test code = Magnesium 2.1 1.8-2.4 Lvl) [facility] NortheastGqogjsaMHRRRGMJFZ3432-28-36 11:20:00 Test Item Value Reference Range Interpretation Comments Hgb (test code = Hgb) 9.9 12.0-16.0 [facility] NortheastGymlwrpYWQRMYXMHT2850-25-18 11:20:00 Test Item Value Reference Range Interpretation Comments RDW (test code = RDW) 15.8 11.5-14.5 [facility] NortheastToaoegoQZUVHIJKDC2224-62-91 11:20:00 Test Item Value Reference Range Interpretation Comments WBC (test code = WBC) 9.9 3.7-10.4 [facility] NortheastUazuefrTWYCXFXJAL3212-31-58 11:20:00 Test Item Value Reference Range Interpretation Comments Platelet (test code = Platelet) 355 133-450 [facility] NortheastGyhxsxwPEABTFZNYU2088-66-65 11:20:00 Test Item Value Reference Range Interpretation Comments Hct (test code = Hct) 29.0 36.0-48.0 [facility] NortheastUdndcdkUDZVKROLVH0505-59-10 11:20:00 Test Item Value Reference Range Interpretation Comments MCH (test code = MCH) 31.6 pg 27.0-31.0 [facility] NortheastCdbrbioFRNAYOJFBV2835-55-18 11:20:00 Test Item Value Reference Range Interpretation Comments MCV (test code = MCV) 92.3 80.0-98.0 [facility] NortheastTfdkpshBSGDKJXLFW2737-14-50 11:20:00 Test Item Value Reference Range Interpretation Comments RBC (test code = RBC) 3.14 4.20-5.40 [facility] NortheastQktzvwgJPDLJZTLMP6159-92-61 11:20:00 Test Item Value Reference Range Interpretation Comments MPV (test code = MPV) 7.1 7.4-10.4 [facility] NortheastOpdshqsIZQJPNLNIC4759-93-13 11:20:00 Test Item Value Reference Range Interpretation Comments MCHC (test code = MCHC) 34.3 32.0-36.0 [facility] NortheastLcsummyZTOMGGDGZU4287-20-92 11:20:00 Test Item Value Reference Range Interpretation Comments Lymphocytes # (test code = Lymphocytes 1.7 1.0-5.5 #) [facility] NortheastLhxymusPENGQZMTQF9218-92-46 11:20:00 Test Item Value Reference Range Interpretation Comments Monocytes # (test code = Monocytes #) 0.6 <=0.8 [facility] NortheastUgcrobvXHQNSKQYYS2495-89-57 11:20:00 Test Item Value Reference Range Interpretation Comments Basophils # (test code = Basophils #) 0.1 <=0.2 [facility] NortheastIezfnetTOMUVFDEHM1310-31-80 11:20:00 Test Item Value Reference Range Interpretation Comments Eosinophils # (test code = Eosinophils 0.7 <=0.5 #) [facility] NortheastJdjbmqeXBNADWRFNA9725-76-52 11:20:00 Test Item Value Reference Range Interpretation Comments Basophils (test code = Basophils) 0.5 <=1.0 [facility] NortheastTegxisyGRCYHYWUVU5284-08-06 11:20:00 Test Item Value Reference Range Interpretation Comments Eosinophils (test code = Eosinophils) 7.3 <=4.0 [facility] NortheastXlhdminHXLJFISJCU6378-09-62 11:20:00 Test Item Value Reference Range Interpretation Comments Neutrophils # (test code = Neutrophils 6.8 1.5-8.1 #) [facility] NortheastSmldmqoGKBDGQUGHI8618-46-95 11:20:00 Test Item Value Reference Range Interpretation Comments Monocytes (test code = Monocytes) 5.7 2.0-12.0 [facility] NortheastHcusgpxQUGKOZWGHR9497-27-79 11:20:00 Test Item Value Reference Range Interpretation Comments Lymphocytes (test code = Lymphocytes) 17.4 20.0-40.0 [facility] NortheastAljhtvcLKXATUUPWA6022-35-59 11:20:00 Test Item Value Reference Range Interpretation Comments Segs (test code = Segs) 69.1 45.0-75.0 [facility]2019-06-15 11:20:00 Test Item Value Reference Range Interpretation Comments Phosphorus (test code = Phosphorus) 3.8 2.5-4.5 [facility]2019-06-15 11:20:00 Test Item Value Reference Range Interpretation Comments Magnesium Lvl (test code = Magnesium 2.1 1.8-2.4 Lvl) [facility] NortheastAywqikuKTXHIRHSWY7998-16-29 11:20:00 Test Item Value Reference Range Interpretation Comments Hgb (test code = Hgb) 9.9 12.0-16.0 [facility] NortheastZmklehqBPQIJJTNJN8948-45-34 11:20:00 Test Item Value Reference Range Interpretation Comments RDW (test code = RDW) 15.8 11.5-14.5 [facility] NortheastYqgtnddFPVZJEGJOJ8856-23-34 11:20:00 Test Item Value Reference Range Interpretation Comments WBC (test code = WBC) 9.9 3.7-10.4 [facility] NortheastElhagwfDODKSOYEXG5596-44-14 11:20:00 Test Item Value Reference Range Interpretation Comments Platelet (test code = Platelet) 355 133-450 [facility] NortheastCifwmuhJRLWWAOHPI1633-10-80 11:20:00 Test Item Value Reference Range Interpretation Comments Hct (test code = Hct) 29.0 36.0-48.0 [facility] NortheastFiwqwnbELRHIERJRK7677-74-94 11:20:00 Test Item Value Reference Range Interpretation Comments MCH (test code = MCH) 31.6 pg 27.0-31.0 [facility] NortheastPvrkamwFAXBDKSPOL2255-67-76 11:20:00 Test Item Value Reference Range Interpretation Comments MCV (test code = MCV) 92.3 80.0-98.0 [facility] NortheastTgocesjLFYRQNTTPI1368-69-56 11:20:00 Test Item Value Reference Range Interpretation Comments RBC (test code = RBC) 3.14 4.20-5.40 [facility] NortheastKmhlixdMQAOHCLWNU9647-04-04 11:20:00 Test Item Value Reference Range Interpretation Comments MPV (test code = MPV) 7.1 7.4-10.4 [facility] NortheastRxwaytfYEZRUUAJGE7397-95-28 11:20:00 Test Item Value Reference Range Interpretation Comments MCHC (test code = MCHC) 34.3 32.0-36.0 [facility] NortheastRzebefyAEOOUXGCSK8789-70-06 11:20:00 Test Item Value Reference Range Interpretation Comments Lymphocytes # (test code = Lymphocytes 1.7 1.0-5.5 #) [facility] NortheastCrkuakqLDHJFKAXRW7691-88-01 11:20:00 Test Item Value Reference Range Interpretation Comments Monocytes # (test code 0.6 See_Comment [Aut omated message] The = Monocytes #) system which generated this result tra nsmitted reference range : <=0.8. The reference r andreia was not used to int erpret this result as normal/abnormal . [facility] NortheastXseptgbKDOLMSOWAJ1891-86-61 11:20:00 Test Item Value Reference Range Interpretation Comments Basophils # (test code 0.1 See_Comment [Aut omated message] The = Basophils #) system which generated this result tra nsmitted reference range : <=0.2. The reference r andreia was not used to int erpret this result as normal/abnormal . [facility] NortheastJdeodyuXVYHHHEEUO7918-72-12 11:20:00 Test Item Value Reference Range Interpretation Comments Eosinophils # (test code 0.7 See_Comment [A utomated message] The = Eosinophils #) system whic h generated this result tra nsmitted reference range : <=0.5. The reference r andreia was not used to int erpret this result as normal/abnormal . [facility] NortheastRatojihZWSFPGYDAD2432-74-77 11:20:00 Test Item Value Reference Range Interpretation Comments Basophils (test code = 0.5 See_Comment [Aut omated message] The Basophils) system which ge nerated this result tra nsmitted reference range : <=1.0. The reference r andreia was not used to int erpret this result as normal/abnormal . [facility] NortheastAzpcjguIPFBYEYTHU4632-79-28 11:20:00 Test Item Value Reference Range Interpretation Comments Eosinophils (test code = 7.3 See_Comment [A utomated message] The Eosinophils) system which ge nerated this result tra nsmitted reference range : <=4.0. The reference r andreia was not used to int erpret this result as normal/abnormal . [facility] NortheastEwdnvpoOAQDZTMDEG4527-45-54 11:20:00 Test Item Value Reference Range Interpretation Comments Neutrophils # (test code = Neutrophils 6.8 1.5-8.1 #) [facility] NortheastAqzwahvWIUXGCWDHR1427-19-44 11:20:00 Test Item Value Reference Range Interpretation Comments Monocytes (test code = Monocytes) 5.7 2.0-12.0 [facility] NortheastBydiedaPYHHGDIEHN8392-97-73 11:20:00 Test Item Value Reference Range Interpretation Comments Lymphocytes (test code = Lymphocytes) 17.4 20.0-40.0 [facility] NortheastBjdxrukWGMLJISXWH8235-69-52 11:20:00 Test Item Value Reference Range Interpretation Comments Segs (test code = Segs) 69.1 45.0-75.0 [facility]2019-06-15 11:20:00 Test Item Value Reference Range Interpretation Comments Phosphorus (test code = Phosphorus) 3.8 2.5-4.5 [facility]2019-06-15 11:20:00 Test Item Value Reference Range Interpretation Comments Magnesium Lvl (test code = Magnesium 2.1 1.8-2.4 Lvl) [facility] NortheastItcwlsfPMGOEVELOO4524-67-69 11:20:00 Test Item Value Reference Range Interpretation Comments Hgb (test code = Hgb) 9.9 12.0-16.0 [facility] NortheastJdjwybiWSQHRSPRDX3268-04-61 11:20:00 Test Item Value Reference Range Interpretation Comments RDW (test code = RDW) 15.8 11.5-14.5 [facility] NortheastXkgexctSMSUQFYXBM9467-13-51 11:20:00 Test Item Value Reference Range Interpretation Comments WBC (test code = WBC) 9.9 3.7-10.4 [facility] NortheastGvfkbbvHFPGIQWEAJ7417-31-70 11:20:00 Test Item Value Reference Range Interpretation Comments Platelet (test code = Platelet) 355 160-450 [facility] NortheastRhuamccVJSLRCPGHH2201-18-34 11:20:00 Test Item Value Reference Range Interpretation Comments Hct (test code = Hct) 29.0 36.0-48.0 [facility] NortheastVjqsqjzJWMZKSBGAN2727-59-74 11:20:00 Test Item Value Reference Range Interpretation Comments MCH (test code = MCH) 31.6 pg 27.0-31.0 [facility] NortheastJkfkkkkYOGLJZYRLF1601-69-54 11:20:00 Test Item Value Reference Range Interpretation Comments MCV (test code = MCV) 92.3 80.0-98.0 [facility] NortheastMjmdczbKLNSHLEYMP1741-04-30 11:20:00 Test Item Value Reference Range Interpretation Comments RBC (test code = RBC) 3.14 4.20-5.40 [facility] NortheastUzfyghxBHOLJAZBTH4561-93-57 11:20:00 Test Item Value Reference Range Interpretation Comments MPV (test code = MPV) 7.1 7.4-10.4 [facility] NortheastLfppiluBOPDXJMABY5184-80-78 11:20:00 Test Item Value Reference Range Interpretation Comments MCHC (test code = MCHC) 34.3 32.0-36.0 [facility] NortheastDbtgpjxRHYDNFFDPJ5720-75-76 11:20:00 Test Item Value Reference Range Interpretation Comments Lymphocytes # (test code = Lymphocytes 1.7 1.0-5.5 #) [facility] NortheastPxopkqeWOYZBAUWLO6991-98-44 11:20:00 Test Item Value Reference Range Interpretation Comments Monocytes # (test code 0.6 See_Comment [Aut omated message] The = Monocytes #) system which generated this result tra nsmitted reference range : <=0.8. The reference r andreia was not used to int erpret this result as normal/abnormal . [facility] NortheastXqttolgCDBAORFDCU9676-96-99 11:20:00 Test Item Value Reference Range Interpretation Comments Basophils # (test code 0.1 See_Comment [Aut omated message] The = Basophils #) system which generated this result tra nsmitted reference range : <=0.2. The reference r andreia was not used to int erpret this result as normal/abnormal . [facility] NortheastQbpksmhEFWBTRQWUW1872-60-81 11:20:00 Test Item Value Reference Range Interpretation Comments Eosinophils # (test code 0.7 See_Comment [A utomated message] The = Eosinophils #) system whic h generated this result tra nsmitted reference range : <=0.5. The reference r andreia was not used to int erpret this result as normal/abnormal . [facility] NortheastFonxhcaVOZUJUPPHE6130-74-73 11:20:00 Test Item Value Reference Range Interpretation Comments Basophils (test code = 0.5 See_Comment [Aut omated message] The Basophils) system which ge nerated this result tra nsmitted reference range : <=1.0. The reference r andreia was not used to int erpret this result as normal/abnormal . [facility] NortheastPjvuaemRCZXDFVGEK6661-36-49 11:20:00 Test Item Value Reference Range Interpretation Comments Eosinophils (test code = 7.3 See_Comment [A utomated message] The Eosinophils) system which ge nerated this result tra nsmitted reference range : <=4.0. The reference r andreia was not used to int erpret this result as normal/abnormal . [facility] NortheastRpgweqhMDUIHVYTFB6486-19-23 11:20:00 Test Item Value Reference Range Interpretation Comments Neutrophils # (test code = Neutrophils 6.8 1.5-8.1 #) [facility] NortheastJqvwpkaLQFKKGGXBD3769-30-06 11:20:00 Test Item Value Reference Range Interpretation Comments Monocytes (test code = Monocytes) 5.7 2.0-12.0 [facility] NortheastFlzayeuMPINDISHUR5397-99-79 11:20:00 Test Item Value Reference Range Interpretation Comments Lymphocytes (test code = Lymphocytes) 17.4 20.0-40.0 [facility] NortheastYpulyenMHQHKCVRSB6785-93-98 11:20:00 Test Item Value Reference Range Interpretation Comments Segs (test code = Segs) 69.1 45.0-75.0 [facility] AAYDF2692-61-40 11:20:00 Test Item Value Reference Range Interpretation Comments Phosphorus (test code = Phosphorus) 3.8 2.5-4.5 [facility] FCHVT4876-37-64 11:20:00 Test Item Value Reference Range Interpretation Comments Magnesium Lvl (test code = Magnesium 2.1 1.8-2.4 Lvl) [facility] NortheastWwghpxmXHVCISLUTY3796-86-52 11:20:00 Test Item Value Reference Range Interpretation Comments Hgb (test code = Hgb) 9.9 12.0-16.0 [facility] NortheastGthiivkUZZWCQSBDR3345-34-97 11:20:00 Test Item Value Reference Range Interpretation Comments RDW (test code = RDW) 15.8 11.5-14.5 [facility] NortheastFywcfxzFZOINGXMDL4684-09-32 11:20:00 Test Item Value Reference Range Interpretation Comments WBC (test code = WBC) 9.9 3.7-10.4 [facility] NortheastZcntwoiYCKJWGSFYD0472-85-30 11:20:00 Test Item Value Reference Range Interpretation Comments Platelet (test code = Platelet) 355 133-450 [facility] NortheastFbvjyrnNZYUEZDXDH3694-88-95 11:20:00 Test Item Value Reference Range Interpretation Comments Hct (test code = Hct) 29.0 36.0-48.0 [facility] NortheastSxhotdwJZOXRGDLYJ2331-27-30 11:20:00 Test Item Value Reference Range Interpretation Comments MCH (test code = MCH) 31.6 pg 27.0-31.0 [facility] NortheastRgdjxjvVEJQNAWACD4768-05-96 11:20:00 Test Item Value Reference Range Interpretation Comments MCV (test code = MCV) 92.3 80.0-98.0 [facility] NortheastQpezywqXVLNYDHEOO3309-81-49 11:20:00 Test Item Value Reference Range Interpretation Comments RBC (test code = RBC) 3.14 4.20-5.40 [facility] NortheastYshuiqdIMSRAWXSIK9816-52-46 11:20:00 Test Item Value Reference Range Interpretation Comments MPV (test code = MPV) 7.1 7.4-10.4 [facility] NortheastFncgwhiPGVJCEKSAE8524-03-34 11:20:00 Test Item Value Reference Range Interpretation Comments MCHC (test code = MCHC) 34.3 32.0-36.0 [facility] NortheastMllemtaDEKKEJLAGV5314-62-17 11:20:00 Test Item Value Reference Range Interpretation Comments Lymphocytes # (test code = Lymphocytes 1.7 1.0-5.5 #) [facility] NortheastXcfiibzNXGMCKNVCT2790-79-19 11:20:00 Test Item Value Reference Range Interpretation Comments Monocytes # (test code 0.6 See_Comment [Aut omated message] The = Monocytes #) system which generated this result tra nsmitted reference range : <=0.8. The reference r andreia was not used to int erpret this result as normal/abnormal . [facility] NortheastUczhbhvRJSFSXYOBE3337-20-97 11:20:00 Test Item Value Reference Range Interpretation Comments Basophils # (test code 0.1 See_Comment [Aut omated message] The = Basophils #) system which generated this result tra nsmitted reference range : <=0.2. The reference r andreia was not used to int erpret this result as normal/abnormal . [facility] NortheastNdcfyjhQRWZRUBTKQ6567-84-16 11:20:00 Test Item Value Reference Range Interpretation Comments Eosinophils # (test code 0.7 See_Comment [A utomated message] The = Eosinophils #) system [facility] generated this result tra nsmitted reference range : <=0.5. The reference r andreia was not used to int erpret this result as normal/abnormal . [facility] NortheastUuwgeauEBMMLKXVSF8501-93-64 11:20:00 Test Item Value Reference Range Interpretation Comments Basophils (test code = 0.5 See_Comment [Aut omated message] The Basophils) system which ge nerated this result tra nsmitted reference range : <=1.0. The reference r andreia was not used to int erpret this result as normal/abnormal . [facility] NortheastMjcpyfxQGVZOMMTHK7847-36-49 11:20:00 Test Item Value Reference Range Interpretation Comments Eosinophils (test code = 7.3 See_Comment [A utomated message] The Eosinophils) system which ge nerated this result tra nsmitted reference range : <=4.0. The reference r andreia was not used to int erpret this result as normal/abnormal . [facility] NortheastLatxjaxPKMYVIFJWO0666-95-30 11:20:00 Test Item Value Reference Range Interpretation Comments Neutrophils # (test code = Neutrophils 6.8 1.5-8.1 #) [facility] NortheastWahakrjKTZHIYQWLT6296-07-80 11:20:00 Test Item Value Reference Range Interpretation Comments Monocytes (test code = Monocytes) 5.7 2.0-12.0 [facility] NortheastJwbxjzlWAUFEBXOOH1533-90-72 11:20:00 Test Item Value Reference Range Interpretation Comments Lymphocytes (test code = Lymphocytes) 17.4 20.0-40.0 [facility] NortheastVatmeuaQYZFGYPJZU2517-71-95 11:20:00 Test Item Value Reference Range Interpretation Comments Segs (test code = Segs) 69.1 45.0-75.0 [facility]2019-06-15 11:20:00 Test Item Value Reference Range Interpretation Comments Phosphorus (test code = Phosphorus) 3.8 2.5-4.5 [facility]2019-06-15 11:20:00 Test Item Value Reference Range Interpretation Comments Magnesium Lvl (test code = Magnesium 2.1 1.8-2.4 Lvl) [facility] NortheastVnbbpwyCLQBDXZGBF9429-47-04 11:20:00 Test Item Value Reference Range Interpretation Comments Hgb (test code = Hgb) 9.9 12.0-16.0 [facility] NortheastGprzhjnBEIQZSTHGW2326-90-59 11:20:00 Test Item Value Reference Range Interpretation Comments RDW (test code = RDW) 15.8 11.5-14.5 [facility] NortheastQneoqljASIVGBYUJU0961-10-18 11:20:00 Test Item Value Reference Range Interpretation Comments WBC (test code = WBC) 9.9 3.7-10.4 [facility] NortheastLxvpulhDBVVXJXOLR5172-36-00 11:20:00 Test Item Value Reference Range Interpretation Comments Platelet (test code = Platelet) 355 133-450 [facility] NortheastYmsmnmgSXDAMUVFAI4772-90-00 11:20:00 Test Item Value Reference Range Interpretation Comments Hct (test code = Hct) 29.0 36.0-48.0 [facility] NortheastQmekfsfOCMXTRGCMZ8423-17-00 11:20:00 Test Item Value Reference Range Interpretation Comments MCH (test code = MCH) 31.6 pg 27.0-31.0 [facility] NortheastTrfgqlwVPPGNOKKFG9899-01-19 11:20:00 Test Item Value Reference Range Interpretation Comments MCV (test code = MCV) 92.3 80.0-98.0 [facility] NortheastIscmizdTIHKGHRJRT7366-34-03 11:20:00 Test Item Value Reference Range Interpretation Comments RBC (test code = RBC) 3.14 4.20-5.40 [facility] NortheastVlgjhasYTXKMIHISG8353-45-55 11:20:00 Test Item Value Reference Range Interpretation Comments MPV (test code = MPV) 7.1 7.4-10.4 [facility] NortheastBpblfxaEENOIKPXFW8101-43-35 11:20:00 Test Item Value Reference Range Interpretation Comments MCHC (test code = MCHC) 34.3 32.0-36.0 [facility] NortheastKzrabxjCURKSFBQSW8858-99-66 11:20:00 Test Item Value Reference Range Interpretation Comments Lymphocytes # (test code = Lymphocytes 1.7 1.0-5.5 #) [facility] NortheastMvvogspCONTDBBOID7347-95-67 11:20:00 Test Item Value Reference Range Interpretation Comments Monocytes # (test code 0.6 See_Comment [Aut omated message] The = Monocytes #) system which generated this result tra nsmitted reference range : <=0.8. The reference r andreia was not used to int erpret this result as normal/abnormal . [facility] NortheastHmmjvloRKFMQFYXOT0739-67-23 11:20:00 Test Item Value Reference Range Interpretation Comments Basophils # (test code 0.1 See_Comment [Aut omated message] The = Basophils #) system which generated this result tra nsmitted reference range : <=0.2. The reference r andreia was not used to int erpret this result as normal/abnormal . [facility] NortheastRtisyuoMDAIZOCKFL7511-00-70 11:20:00 Test Item Value Reference Range Interpretation Comments Eosinophils # (test code 0.7 See_Comment [A utomated message] The = Eosinophils #) system whic h generated this result tra nsmitted reference range : <=0.5. The reference r andreia was not used to int erpret this result as normal/abnormal . [facility] NortheastTtlcdfzQCIOWJNCGO6840-78-91 11:20:00 Test Item Value Reference Range Interpretation Comments Basophils (test code = 0.5 See_Comment [Aut omated message] The Basophils) system which ge nerated this result tra nsmitted reference range : <=1.0. The reference r andreia was not used to int erpret this result as normal/abnormal . [facility] NortheastMmzcjxoRJCUEWFXDI5850-21-46 11:20:00 Test Item Value Reference Range Interpretation Comments Eosinophils (test code = 7.3 See_Comment [A utomated message] The Eosinophils) system which ge nerated this result tra nsmitted reference range : <=4.0. The reference r andreia was not used to int erpret this result as normal/abnormal . [facility] NortheastUnlkvbwGWODICDUNU7016-40-11 11:20:00 Test Item Value Reference Range Interpretation Comments Neutrophils # (test code = Neutrophils 6.8 1.5-8.1 #) [facility] 11:20:00 Test Item Value Reference Range Interpretation Comments Phosphorus (test code = Phosphorus) 3.8 2.5-4.5 [facility] GBSIT1410-10-54 11:20:00 Test Item Value Reference Range Interpretation Comments Magnesium Lvl (test code = Magnesium 2.1 1.8-2.4 Lvl) [facility] NortheastImphbyqRWSMBYWXPX6784-83-58 11:20:00 Test Item Value Reference Range Interpretation Comments Hgb (test code = Hgb) 9.9 12.0-16.0 [facility] NortheastImougdgHILSZXPFMF3476-20-65 11:20:00 Test Item Value Reference Range Interpretation Comments RDW (test code = RDW) 15.8 11.5-14.5 [facility] NortheastCtzhgwoKKMUFAQMMS8600-76-99 11:20:00 Test Item Value Reference Range Interpretation Comments WBC (test code = WBC) 9.9 3.7-10.4 [facility]GufughyUUUKQSELIR2529-20-08 11:20:00 Test Item Value Reference Range Interpretation Comments Platelet (test code = Platelet) 355 133-450 [facility] NortheastKlwkojqIAXGBXMDQG1141-94-69 11:20:00 Test Item Value Reference Range Interpretation Comments Hct (test code = Hct) 29.0 36.0-48.0 [facility] NortheastLsmcxacPMKZHKWHRH8301-52-42 11:20:00 Test Item Value Reference Range Interpretation Comments MCH (test code = MCH) 31.6 pg 27.0-31.0 [facility] NortheastNuxepgzFQRWNURNJY9852-77-64 11:20:00 Test Item Value Reference Range Interpretation Comments MCV (test code = MCV) 92.3 80.0-98.0 [facility] NortheastHldlpgmQCXJNZEKEG5378-53-21 11:20:00 Test Item Value Reference Range Interpretation Comments RBC (test code = RBC) 3.14 4.20-5.40 [facility] NortheastYgmldbfBKMLEOHFPM9532-16-73 11:20:00 Test Item Value Reference Range Interpretation Comments Monocytes (test code = Monocytes) 5.7 2.0-12.0 [facility] NortheastItdcxjjCGAIJXFEEF6764-92-30 11:20:00 Test Item Value Reference Range Interpretation Comments MPV (test code = MPV) 7.1 7.4-10.4 [facility] NortheastRvgykvtBLZWSSPYHG5801-80-17 11:20:00 Test Item Value Reference Range Interpretation Comments MCHC (test code = MCHC) 34.3 32.0-36.0 [facility] NortheastYutppfrGZCPPWTRYK5830-47-06 11:20:00 Test Item Value Reference Range Interpretation Comments Lymphocytes # (test code = Lymphocytes 1.7 1.0-5.5 #) [facility] NortheastQbpjpkbBURLSTCCYL1405-47-63 11:20:00 Test Item Value Reference Range Interpretation Comments Monocytes # (test code 0.6 See_Comment [Aut omated message] The = Monocytes #) system which generated this result tra nsmitted reference range : <=0.8. The reference r andreia was not used to int erpret this result as normal/abnormal . [facility] NortheastKcvtlcdAHCYJZUROU7415-00-80 11:20:00 Test Item Value Reference Range Interpretation Comments Basophils # (test code 0.1 See_Comment [Aut omated message] The = Basophils #) system which generated this result tra nsmitted reference range : <=0.2. The reference r andreia was not used to int erpret this result as normal/abnormal . [facility] NortheastWvzhdpqSURRKMQKPJ5394-49-83 11:20:00 Test Item Value Reference Range Interpretation Comments Eosinophils # (test code 0.7 See_Comment [A utomated message] The = Eosinophils #) system whic h generated this result tra nsmitted reference range : <=0.5. The reference r andreia was not used to int erpret this result as normal/abnormal . [facility] NortheastHhveegqKUSAHGEASX5683-38-73 11:20:00 Test Item Value Reference Range Interpretation Comments Basophils (test code = 0.5 See_Comment [Aut omated message] The Basophils) system which ge nerated this result tra nsmitted reference range : <=1.0. The reference r andreia was not used to int erpret this result as normal/abnormal . [facility] NortheastZdemuqnLCZUXDPFSF4934-27-67 11:20:00 Test Item Value Reference Range Interpretation Comments Eosinophils (test code = 7.3 See_Comment [A utomated message] The Eosinophils) system which ge nerated this result tra nsmitted reference range : <=4.0. The reference r andreia was not used to int erpret this result as normal/abnormal . [facility] NortheastIypugrmYWBXIHNUBR6048-52-13 11:20:00 Test Item Value Reference Range Interpretation Comments Neutrophils # (test code = Neutrophils 6.8 1.5-8.1 #) [facility] NortheastEonmwetLRMIJSQUXT8776-79-95 11:20:00 Test Item Value Reference Range Interpretation Comments Monocytes (test code = Monocytes) 5.7 2.0-12.0 [facility] NortheastQfenddiAPFTMXSOYR7701-04-15 11:20:00 Test Item Value Reference Range Interpretation Comments Lymphocytes (test code = Lymphocytes) 17.4 20.0-40.0 [facility] NortheastVqadayiLUFBEDWLIN6063-21-07 11:20:00 Test Item Value Reference Range Interpretation Comments Lymphocytes (test code = Lymphocytes) 17.4 20.0-40.0 [facility] NortheastZxixvygVOBHTOKHOE1835-59-57 11:20:00 Test Item Value Reference Range Interpretation Comments Segs (test code = Segs) 69.1 45.0-75.0 [facility] NortheastIghigodFPOMKXZQZO3255-06-95 11:20:00 Test Item Value Reference Range Interpretation Comments Segs (test code = Segs) 69.1 45.0-75.0 [facility]2019-06-15 11:20:00 Test Item Value Reference Range Interpretation Comments Phosphorus (test code = Phosphorus) 3.8 2.5-4.5 [facility]2019-06-15 11:20:00 Test Item Value Reference Range Interpretation Comments Magnesium Lvl (test code = Magnesium 2.1 1.8-2.4 Lvl) [facility] NortheastWrxgqgyJRSABXKPVG4965-42-43 11:20:00 Test Item Value Reference Range Interpretation Comments Hgb (test code = Hgb) 9.9 12.0-16.0 [facility] NortheastQbgbuqjWZKPNMVMNE0743-19-03 11:20:00 Test Item Value Reference Range Interpretation Comments RDW (test code = RDW) 15.8 11.5-14.5 [facility] NortheastYojxsrsPTWPKFIKXK8240-10-91 11:20:00 Test Item Value Reference Range Interpretation Comments WBC (test code = WBC) 9.9 3.7-10.4 [facility] NortheastDfosktgRSCLMNWKTL7894-33-74 11:20:00 Test Item Value Reference Range Interpretation Comments Platelet (test code = Platelet) 355 133-450 [facility] NortheastQrbmkktINKBRUMWLX4483-71-76 11:20:00 Test Item Value Reference Range Interpretation Comments Hct (test code = Hct) 29.0 36.0-48.0 [facility] NortheastMpbowtrDMLACEMOUR7694-17-44 11:20:00 Test Item Value Reference Range Interpretation Comments MCH (test code = MCH) 31.6 pg 27.0-31.0 [facility] NortheastIknzxkkTDAVEOABLO6153-69-67 11:20:00 Test Item Value Reference Range Interpretation Comments MCV (test code = MCV) 92.3 80.0-98.0 [facility] NortheastZhxnqdaDYOLNNVJYQ1694-01-14 11:20:00 Test Item Value Reference Range Interpretation Comments RBC (test code = RBC) 3.14 4.20-5.40 [facility] NortheastYvggqvgASDWHEWSMZ5453-87-22 11:20:00 Test Item Value Reference Range Interpretation Comments MPV (test code = MPV) 7.1 7.4-10.4 [facility] NortheastTkfaidqSVDDSIFVDP2604-78-85 11:20:00 Test Item Value Reference Range Interpretation Comments MCHC (test code = MCHC) 34.3 32.0-36.0 [facility] NortheastKsdpzmvOBDXGXRMHQ1860-58-04 11:20:00 Test Item Value Reference Range Interpretation Comments Lymphocytes # (test code = Lymphocytes 1.7 1.0-5.5 #) [facility] NortheastUrzpibcPIXMUUWZPH6171-66-30 11:20:00 Test Item Value Reference Range Interpretation Comments Monocytes # (test code 0.6 See_Comment [Aut omated message] The = Monocytes #) system which generated this result tra nsmitted reference range : <=0.8. The reference r andreia was not used to int erpret this result as normal/abnormal . [facility] NortheastBxmrfvrRNOLFERMAE3576-40-26 11:20:00 Test Item Value Reference Range Interpretation Comments Basophils # (test code 0.1 See_Comment [Aut omated message] The = Basophils #) system which generated this result tra nsmitted reference range : <=0.2. The reference r andreia was not used to int erpret this result as normal/abnormal . [facility] NortheastKwyokquEJKWBZTCTO6161-91-44 11:20:00 Test Item Value Reference Range Interpretation Comments Eosinophils # (test code 0.7 See_Comment [A utomated message] The = Eosinophils #) system whic h generated this result tra nsmitted reference range : <=0.5. The reference r andreia was not used to int erpret this result as normal/abnormal . [facility] NortheastFpevoyyPBEURQDIHO7041-17-95 11:20:00 Test Item Value Reference Range Interpretation Comments Basophils (test code = 0.5 See_Comment [Aut omated message] The Basophils) system which ge nerated this result tra nsmitted reference range : <=1.0. The reference r andreia was not used to int erpret this result as normal/abnormal . [facility] NortheastFzigueyXQRQIFSQQM7127-60-28 11:20:00 Test Item Value Reference Range Interpretation Comments Eosinophils (test code = 7.3 See_Comment [A utomated message] The Eosinophils) system which ge nerated this result tra nsmitted reference range : <=4.0. The reference r andreia was not used to int erpret this result as normal/abnormal . [facility] NortheastLbxswkiUJMISJGQBC9160-89-16 11:20:00 Test Item Value Reference Range Interpretation Comments Neutrophils # (test code = Neutrophils 6.8 1.5-8.1 #) [facility] NortheastFwyiwbtTTUMSXUARO4599-89-48 11:20:00 Test Item Value Reference Range Interpretation Comments Monocytes (test code = Monocytes) 5.7 2.0-12.0 [facility] NortheastLvwbdboLNPXPBMWNS1974-58-59 11:20:00 Test Item Value Reference Range Interpretation Comments Lymphocytes (test code = Lymphocytes) 17.4 20.0-40.0 [facility] NortheastUuacwgxNWDFWONTNS2960-48-13 11:20:00 Test Item Value Reference Range Interpretation Comments Segs (test code = Segs) 69.1 45.0-75.0 [facility]2019-06-15 11:20:00 Test Item Value Reference Range Interpretation Comments Phosphorus (test code = Phosphorus) 3.8 2.5-4.5 [facility]2019-06-15 11:20:00 Test Item Value Reference Range Interpretation Comments Magnesium Lvl (test code = Magnesium 2.1 1.8-2.4 Lvl) [facility] NortheastZblefavCDXBCQCXEG0397-45-58 11:20:00 Test Item Value Reference Range Interpretation Comments Hgb (test code = Hgb) 9.9 12.0-16.0 [facility] NortheastNkjapvmRZNUVCPXTB9809-02-78 11:20:00 Test Item Value Reference Range Interpretation Comments RDW (test code = RDW) 15.8 11.5-14.5 [facility] NortheastLeplypwPWJWQIBXVF0129-04-47 11:20:00 Test Item Value Reference Range Interpretation Comments WBC (test code = WBC) 9.9 3.7-10.4 [facility] NortheastIlsvolyVOPCNTZZSL1058-23-88 11:20:00 Test Item Value Reference Range Interpretation Comments Platelet (test code = Platelet) 355 133-450 [facility] NortheastTmybdegFJBYHQGSDT7793-33-58 11:20:00 Test Item Value Reference Range Interpretation Comments Hct (test code = Hct) 29.0 36.0-48.0 [facility] NortheastYgwnhfdRIIFSGRQLH4320-20-71 11:20:00 Test Item Value Reference Range Interpretation Comments MCH (test code = MCH) 31.6 pg 27.0-31.0 [facility] NortheastErikyctWBFIFNVDVJ2447-52-77 11:20:00 Test Item Value Reference Range Interpretation Comments MCV (test code = MCV) 92.3 80.0-98.0 [facility] NortheastEyzadmfPPACOCTMLW3974-69-24 11:20:00 Test Item Value Reference Range Interpretation Comments RBC (test code = RBC) 3.14 4.20-5.40 [facility] NortheastYvonbtuEERCKJYRFU3993-29-30 11:20:00 Test Item Value Reference Range Interpretation Comments MPV (test code = MPV) 7.1 7.4-10.4 [facility] NortheastAsxpctpKJONLDCOQZ0594-01-81 11:20:00 Test Item Value Reference Range Interpretation Comments MCHC (test code = MCHC) 34.3 32.0-36.0 [facility] NortheastUthsccvJSRARQIXIC0524-19-43 11:20:00 Test Item Value Reference Range Interpretation Comments Lymphocytes # (test code = Lymphocytes 1.7 1.0-5.5 #) [facility] NortheastFugvjrqWELVMWDTTP8873-14-36 11:20:00 Test Item Value Reference Range Interpretation Comments Monocytes # (test code 0.6 See_Comment [Aut omated message] The = Monocytes #) system which generated this result tra nsmitted reference range : <=0.8. The reference r andreia was not used to int erpret this result as normal/abnormal . [facility] NortheastEguafupVLUOQNWARM1914-29-20 11:20:00 Test Item Value Reference Range Interpretation Comments Basophils # (test code 0.1 See_Comment [Aut omated message] The = Basophils #) system which generated this result tra nsmitted reference range : <=0.2. The reference r andreia was not used to int erpret this result as normal/abnormal . [facility] NortheastMifwxapAFBTCEXNZX8668-22-18 11:20:00 Test Item Value Reference Range Interpretation Comments Eosinophils # (test code 0.7 See_Comment [A utomated message] The = Eosinophils #) system whic h generated this result tra nsmitted reference range : <=0.5. The reference r andreia was not used to int erpret this result as normal/abnormal . [facility] NortheastFdqbamtNLCRRFHLFS0463-16-08 11:20:00 Test Item Value Reference Range Interpretation Comments Basophils (test code = 0.5 See_Comment [Aut omated message] The Basophils) system which ge nerated this result tra nsmitted reference range : <=1.0. The reference r andreia was not used to int erpret this result as normal/abnormal . [facility] NortheastDlpopppSSZZFJJJLY9399-57-96 11:20:00 Test Item Value Reference Range Interpretation Comments Eosinophils (test code = 7.3 See_Comment [A utomated message] The Eosinophils) system which ge nerated this result tra nsmitted reference range : <=4.0. The reference r andreia was not used to int erpret this result as normal/abnormal . [facility] NortheastJshezusTFCCVRNRRY0168-06-60 11:20:00 Test Item Value Reference Range Interpretation Comments Neutrophils # (test code = Neutrophils 6.8 1.5-8.1 #) [facility] NortheastHjenrayXRWMSBZXRK9340-23-58 11:20:00 Test Item Value Reference Range Interpretation Comments Monocytes (test code = Monocytes) 5.7 2.0-12.0 [facility] NortheastPuvvrmbOCZGHQQPNJ2005-28-26 11:20:00 Test Item Value Reference Range Interpretation Comments Lymphocytes (test code = Lymphocytes) 17.4 20.0-40.0 [facility] NortheastLujhwfbTXMFSTCQMA1602-80-45 11:20:00 Test Item Value Reference Range Interpretation Comments Segs (test code = Segs) 69.1 45.0-75.0 [facility] BJUSD7277-52-22 11:20:00 Test Item Value Reference Range Interpretation Comments Phosphorus (test code = Phosphorus) 3.8 2.5-4.5 [facility] LFKRT2310-65-00 11:20:00 Test Item Value Reference Range Interpretation Comments Magnesium Lvl (test code = Magnesium 2.1 1.8-2.4 Lvl) [facility] NortheastRjzrxfiVUCVXMLJBF8156-21-54 11:20:00 Test Item Value Reference Range Interpretation Comments Hgb (test code = Hgb) 9.9 12.0-16.0 [facility] NortheastMcoyqywLSWUZDYCIV9167-40-87 11:20:00 Test Item Value Reference Range Interpretation Comments RDW (test code = RDW) 15.8 11.5-14.5 [facility] NortheastEcswieuTNEVYLDBHV9283-81-58 11:20:00 Test Item Value Reference Range Interpretation Comments WBC (test code = WBC) 9.9 3.7-10.4 [facility] NortheastHrqmncsYOZQYWOMPD9990-03-35 11:20:00 Test Item Value Reference Range Interpretation Comments Platelet (test code = Platelet) 355 133-450 [facility] NortheastXciskyeBEGFJIPYVG0945-09-39 11:20:00 Test Item Value Reference Range Interpretation Comments Hct (test code = Hct) 29.0 36.0-48.0 [facility] NortheastUebkqdbTGFOAZMWLS4543-53-14 11:20:00 Test Item Value Reference Range Interpretation Comments MCH (test code = MCH) 31.6 pg 27.0-31.0 [facility] NortheastOdwwdysJZRGCYYGNP1123-40-78 11:20:00 Test Item Value Reference Range Interpretation Comments MCV (test code = MCV) 92.3 80.0-98.0 [facility] NortheastHapshhfVCUWCSGRUD3051-97-21 11:20:00 Test Item Value Reference Range Interpretation Comments RBC (test code = RBC) 3.14 4.20-5.40 [facility] NortheastRpmapkdVWIDFOCIRQ8586-64-80 11:20:00 Test Item Value Reference Range Interpretation Comments MPV (test code = MPV) 7.1 7.4-10.4 [facility] NortheastIvmoktaDUOZSOZPYX8026-74-56 11:20:00 Test Item Value Reference Range Interpretation Comments MCHC (test code = MCHC) 34.3 32.0-36.0 [facility] NortheastFciizfuHVPHIEONXX8506-31-59 11:20:00 Test Item Value Reference Range Interpretation Comments Lymphocytes # (test code = Lymphocytes 1.7 1.0-5.5 #) [facility] NortheastFjrqxuvARFZYAJIQW4347-75-87 11:20:00 Test Item Value Reference Range Interpretation Comments Monocytes # (test code 0.6 See_Comment [Aut omated message] The = Monocytes #) system which generated this result tra nsmitted reference range : <=0.8. The reference r andreia was not used to int erpret this result as normal/abnormal . [facility] NortheastShlmiakTWNWSTSNOS1356-59-38 11:20:00 Test Item Value Reference Range Interpretation Comments Basophils # (test code 0.1 See_Comment [Aut omated message] The = Basophils #) system which generated this result tra nsmitted reference range : <=0.2. The reference r andreia was not used to int erpret this result as normal/abnormal . [facility] NortheastUgrgzusLYZVMYZRUN1952-99-56 11:20:00 Test Item Value Reference Range Interpretation Comments Eosinophils # (test code 0.7 See_Comment [A utomated message] The = Eosinophils #) system wh h generated this result tra nsmitted reference range : <=0.5. The reference r andreia was not used to int erpret this result as normal/abnormal . [facility] NortheastGznmthpJHIPUJPQNW6836-16-09 11:20:00 Test Item Value Reference Range Interpretation Comments Basophils (test code = 0.5 See_Comment [Aut omated message] The Basophils) system which ge nerated this result tra nsmitted reference range : <=1.0. The reference r andreia was not used to int erpret this result as normal/abnormal . [facility] NortheastBxbarodRGFCVCZOIF4768-92-07 11:20:00 Test Item Value Reference Range Interpretation Comments Eosinophils (test code = 7.3 See_Comment [A utomated message] The Eosinophils) system which ge nerated this result tra nsmitted reference range : <=4.0. The reference r andreia was not used to int erpret this result as normal/abnormal . [facility] NortheastSrlsqjeUBNFUJONYB6810-98-06 11:20:00 Test Item Value Reference Range Interpretation Comments Neutrophils # (test code = Neutrophils 6.8 1.5-8.1 #) [facility] NortheastZjxdqnsOPTCSRMUKF5907-65-49 11:20:00 Test Item Value Reference Range Interpretation Comments Monocytes (test code = Monocytes) 5.7 2.0-12.0 [facility] NortheastExairgzGASVFCHIWD2675-34-30 11:20:00 Test Item Value Reference Range Interpretation Comments Lymphocytes (test code = Lymphocytes) 17.4 20.0-40.0 [facility] NortheastMihggzpLWWYYDFQII3352-11-67 11:20:00 Test Item Value Reference Range Interpretation Comments Segs (test code = Segs) 69.1 45.0-75.0 [facility]2019-06-15 11:20:00 Test Item Value Reference Range Interpretation Comments Phosphorus (test code = Phosphorus) 3.8 2.5-4.5 [facility]2019-06-15 11:20:00 Test Item Value Reference Range Interpretation Comments Magnesium Lvl (test code = Magnesium 2.1 1.8-2.4 Lvl) [facility] NortheastDuyhnogJDYGKYACOV7703-63-64 11:20:00 Test Item Value Reference Range Interpretation Comments Hgb (test code = Hgb) 9.9 12.0-16.0 [facility] NortheastTmntblnRVHBZJNWBX6058-78-86 11:20:00 Test Item Value Reference Range Interpretation Comments RDW (test code = RDW) 15.8 11.5-14.5 [facility] NortheastHaxfbwgEOOCFNZNDH8340-89-43 11:20:00 Test Item Value Reference Range Interpretation Comments WBC (test code = WBC) 9.9 3.7-10.4 [facility] NortheastXxhpqjiBNPBEMRYKA1934 11:20:00 Test Item Value Reference Range Interpretation Comments Platelet (test code = Platelet) 355 133-450 [facility] NortheastDckwuepYJROTIWKWS4146-96-40 11:20:00 Test Item Value Reference Range Interpretation Comments Hct (test code = Hct) 29.0 36.0-48.0 [facility] NortheastTnaiwihLPSZAXJZYA6049-76-70 11:20:00 Test Item Value Reference Range Interpretation Comments MCH (test code = MCH) 31.6 pg 27.0-31.0 [facility] NortheastVrqoapwFXJHPXECOF0973-52-33 11:20:00 Test Item Value Reference Range Interpretation Comments MCV (test code = MCV) 92.3 80.0-98.0 [facility] NortheastQlrsrjtCBRFOANUWB0403-42-97 11:20:00 Test Item Value Reference Range Interpretation Comments RBC (test code = RBC) 3.14 4.20-5.40 [facility] NortheastRazgjsdIXPJWVAFXR6989-33-36 11:20:00 Test Item Value Reference Range Interpretation Comments MPV (test code = MPV) 7.1 7.4-10.4 [facility] NortheastFtkapsgFTKLGBLMCX6356-84-15 11:20:00 Test Item Value Reference Range Interpretation Comments MCHC (test code = MCHC) 34.3 32.0-36.0 [facility] NortheastZrbvpftQNCYYEMZJM0185-92-23 11:20:00 Test Item Value Reference Range Interpretation Comments Lymphocytes # (test code = Lymphocytes 1.7 1.0-5.5 #) [facility] NortheastPbjfiehXZDJHAHSMZ3656-17-61 11:20:00 Test Item Value Reference Range Interpretation Comments Monocytes # (test code 0.6 See_Comment [Aut omated message] The = Monocytes #) system which generated this result tra nsmitted reference range : <=0.8. The reference r andreia was not used to int erpret this result as normal/abnormal . [facility] NortheastHphdrokMKBSNVLFQG6901-15-92 11:20:00 Test Item Value Reference Range Interpretation Comments Basophils # (test code 0.1 See_Comment [Aut omated message] The = Basophils #) system which generated this result tra nsmitted reference range : <=0.2. The reference r andreia was not used to int erpret this result as normal/abnormal . [facility] NortheastVrowjtoWFZHSQJGMH1827-81-35 11:20:00 Test Item Value Reference Range Interpretation Comments Eosinophils # (test code 0.7 See_Comment [A utomated message] The = Eosinophils #) system whic h generated this result tra nsmitted reference range : <=0.5. The reference r andreia was not used to int erpret this result as normal/abnormal . [facility] NortheastRwzgduzHWJMDYHQIE3135-53-45 11:20:00 Test Item Value Reference Range Interpretation Comments Basophils (test code = 0.5 See_Comment [Aut omated message] The Basophils) system which ge nerated this result tra nsmitted reference range : <=1.0. The reference r andreia was not used to int erpret this result as normal/abnormal . [facility] NortheastBaoltorQIYQYZLQEK2868-57-66 11:20:00 Test Item Value Reference Range Interpretation Comments Eosinophils (test code = 7.3 See_Comment [A utomated message] The Eosinophils) system which ge nerated this result tra nsmitted reference range : <=4.0. The reference r andreia was not used to int erpret this result as normal/abnormal . [facility] NortheastJbzzrzjAMJKBHRJDR8808-55-42 11:20:00 Test Item Value Reference Range Interpretation Comments Neutrophils # (test code = Neutrophils 6.8 1.5-8.1 #) [facility] NortheastMzmlvnhANMEPNHPPR9953-50-56 11:20:00 Test Item Value Reference Range Interpretation Comments Monocytes (test code = Monocytes) 5.7 2.0-12.0 [facility] NortheastVoqxblpIXJZXVDNRI0792-12-46 11:20:00 Test Item Value Reference Range Interpretation Comments Lymphocytes (test code = Lymphocytes) 17.4 20.0-40.0 [facility] NortheastIvbgcvuWWBMEUJQOS8311-47-23 11:20:00 Test Item Value Reference Range Interpretation Comments Segs (test code = Segs) 69.1 45.0-75.0 [facility]2019-06-15 11:20:00 Test Item Value Reference Range Interpretation Comments Phosphorus (test code = Phosphorus) 3.8 2.5-4.5 [facility] WSRZA4914-26-78 11:20:00 Test Item Value Reference Range Interpretation Comments Magnesium Lvl (test code = Magnesium 2.1 1.8-2.4 Lvl) [facility] NortheastBjmcrotJCVVCFKYNZ3626-29-34 11:20:00 Test Item Value Reference Range Interpretation Comments Hgb (test code = Hgb) 9.9 12.0-16.0 [facility] NortheastAydgjbtHQUTIQSEYM9054-13-80 11:20:00 Test Item Value Reference Range Interpretation Comments RDW (test code = RDW) 15.8 11.5-14.5 [facility] NortheastMohakrxHTYDTMDGYM4605-52-71 11:20:00 Test Item Value Reference Range Interpretation Comments WBC (test code = WBC) 9.9 3.7-10.4 [facility] NortheastYxexfigLMZGOJSIRH5083-62-60 11:20:00 Test Item Value Reference Range Interpretation Comments Platelet (test code = Platelet) 355 133-450 [facility] NortheastUonjafmDOUZCQFXDI0825-08-80 11:20:00 Test Item Value Reference Range Interpretation Comments Hct (test code = Hct) 29.0 36.0-48.0 [facility] NortheastIqpqqoyIBMCRNZTIG7389-15-91 11:20:00 Test Item Value Reference Range Interpretation Comments MCH (test code = MCH) 31.6 pg 27.0-31.0 [facility] NortheastVtmppnvUIKRMPTFJX1584-86-73 11:20:00 Test Item Value Reference Range Interpretation Comments MCV (test code = MCV) 92.3 80.0-98.0 [facility] NortheastLsrrhatUZTZRBMJBH8976-31-65 11:20:00 Test Item Value Reference Range Interpretation Comments RBC (test code = RBC) 3.14 4.20-5.40 [facility]spnkzkBIPIGKRZPU9868-83-22 11:20:00 Test Item Value Reference Range Interpretation Comments MPV (test code = MPV) 7.1 7.4-10.4 [facility]EvfdxxkOUQLOTNKYX9378-55-96 11:20:00 Test Item Value Reference Range Interpretation Comments MCHC (test code = MCHC) 34.3 32.0-36.0 [facility]WtlvkhcQCLBKDDRLZ2141-21-64 11:20:00 Test Item Value Reference Range Interpretation Comments Lymphocytes # (test code = Lymphocytes 1.7 1.0-5.5 #) [facility]JfqbfgdBFZCYRZQPB5178-60-71 11:20:00 Test Item Value Reference Range Interpretation Comments Monocytes # (test code 0.6 See_Comment [Aut omated message] The = Monocytes #) system which generated this result tra nsmitted reference range : <=0.8. The reference r andreia was not used to int erpret this result as normal/abnormal . [facility]IcexgyjMHLTHBWCLJ1031-37-50 11:20:00 Test Item Value Reference Range Interpretation Comments Basophils # (test code 0.1 See_Comment [Aut omated message] The = Basophils #) system which generated this result tra nsmitted reference range : <=0.2. The reference r andreia was not used to int erpret this result as normal/abnormal . [facility]XbueqrcKIQTYDNDOZ3891-13-30 11:20:00 Test Item Value Reference Range Interpretation Comments Eosinophils # (test code 0.7 See_Comment [A utomated message] The = Eosinophils #) system whic h generated this result tra nsmitted reference range : <=0.5. The reference r andreia was not used to int erpret this result as normal/abnormal . [facility] NortheastTugwaytTZJSGUDLEY4647-70-97 11:20:00 Test Item Value Reference Range Interpretation Comments Basophils (test code = 0.5 See_Comment [Aut omated message] The Basophils) system which ge nerated this result tra nsmitted reference range : <=1.0. The reference r andreia was not used to int erpret this result as normal/abnormal . [facility] NortheastHmoalaySJCGGKEUYY8566-52-98 11:20:00 Test Item Value Reference Range Interpretation Comments Eosinophils (test code = 7.3 See_Comment [A utomated message] The Eosinophils) system which ge nerated this result tra nsmitted reference range : <=4.0. The reference r andreia was not used to int erpret this result as normal/abnormal . [facility]QgxjvovHZCFQHUKIO1768-03-68 11:20:00 Test Item Value Reference Range Interpretation Comments Neutrophils # (test code = Neutrophils 6.8 1.5-8.1 #) [facility]DrsxzopFNFRYTSZCV3658-57-38 11:20:00 Test Item Value Reference Range Interpretation Comments Monocytes (test code = Monocytes) 5.7 2.0-12.0 [facility]AecqltvYIUGPXNWVE1275-42-84 11:20:00 Test Item Value Reference Range Interpretation Comments Lymphocytes (test code = Lymphocytes) 17.4 20.0-40.0 [facility] NortheastAbnsoiyNTJZRPEFTH2290-24-65 11:20:00 Test Item Value Reference Range Interpretation Comments Segs (test code = Segs) 69.1 45.0-75.0 [facility]2019-06-15 11:20:00 Test Item Value Reference Range Interpretation Comments Phosphorus (test code = Phosphorus) 3.8 2.5-4.5 [facility]2019-06-15 11:20:00 Test Item Value Reference Range Interpretation Comments Magnesium Lvl (test code = Magnesium 2.1 1.8-2.4 Lvl) [facility]GrwgdoeQUQYWNVPZP2672-55-89 11:20:00 Test Item Value Reference Range Interpretation Comments Hgb (test code = Hgb) 9.9 12.0-16.0 [facility]AujwgfgSFGTJNOHUW0913-46-63 11:20:00 Test Item Value Reference Range Interpretation Comments RDW (test code = RDW) 15.8 11.5-14.5 [facility] NortheastOzyxoxsWQCXPFZIDX8759-04-63 11:20:00 Test Item Value Reference Range Interpretation Comments WBC (test code = WBC) 9.9 3.7-10.4 [facility] NortheastGdzgtwmYDEXVGYJBO4995-54-19 11:20:00 Test Item Value Reference Range Interpretation Comments Platelet (test code = Platelet) 355 133-450 [facility]IobcgusOJGSCMTNYQ1350-40-25 11:20:00 Test Item Value Reference Range Interpretation Comments Hct (test code = Hct) 29.0 36.0-48.0 [facility] NortheastIleyrawNSHLZSFHFG3980-46-19 11:20:00 Test Item Value Reference Range Interpretation Comments MCH (test code = MCH) 31.6 pg 27.0-31.0 [facility] NortheastXqazxkjSETEACIJTJ7669-51-23 11:20:00 Test Item Value Reference Range Interpretation Comments MCV (test code = MCV) 92.3 80.0-98.0 [facility] NortheastZecrbyhVDHEDEUAIN9399-41-37 11:20:00 Test Item Value Reference Range Interpretation Comments RBC (test code = RBC) 3.14 4.20-5.40 [facility]GdyqqqtSGACPEBFUQ8439-21-15 11:20:00 Test Item Value Reference Range Interpretation Comments MPV (test code = MPV) 7.1 7.4-10.4 [facility] NortheastFhuqcrtQWMETNONXY5627-28-19 11:20:00 Test Item Value Reference Range Interpretation Comments MCHC (test code = MCHC) 34.3 32.0-36.0 [facility] NortheastWkgoqooBSJUIYFZLF6255-64-01 11:20:00 Test Item Value Reference Range Interpretation Comments Lymphocytes # (test code = Lymphocytes 1.7 1.0-5.5 #) [facility] NortheastBqfymyfZMGRJEUFUO6378-80-69 11:20:00 Test Item Value Reference Range Interpretation Comments Monocytes # (test code 0.6 See_Comment [Aut omated message] The = Monocytes #) system which generated this result tra nsmitted reference range : <=0.8. The reference r andreia was not used to int erpret this result as normal/abnormal . [facility] NortheastOdwurreKGCGWKMJVW1214-91-19 11:20:00 Test Item Value Reference Range Interpretation Comments Basophils # (test code 0.1 See_Comment [Aut omated message] The = Basophils #) system which generated this result tra nsmitted reference range : <=0.2. The reference r andreia was not used to int erpret this result as normal/abnormal . [facility]IenvkwsOTYDBAHHSF8481-00-60 11:20:00 Test Item Value Reference Range Interpretation Comments Eosinophils # (test code 0.7 See_Comment [A utomated message] The = Eosinophils #) system whic h generated this result tra nsmitted reference range : <=0.5. The reference r andreia was not used to int erpret this result as normal/abnormal . [facility] NortheastYrpaelrMKCSRXZEKR9049-88-46 11:20:00 Test Item Value Reference Range Interpretation Comments Basophils (test code = 0.5 See_Comment [Aut omated message] The Basophils) system which ge nerated this result tra nsmitted reference range : <=1.0. The reference r andreia was not used to int erpret this result as normal/abnormal . [facility] NortheastLnwipmrMAKHCCPBRG4447-73-79 11:20:00 Test Item Value Reference Range Interpretation Comments Eosinophils (test code = 7.3 See_Comment [A utomated message] The Eosinophils) system which ge nerated this result tra nsmitted reference range : <=4.0. The reference r andreia was not used to int erpret this result as normal/abnormal . [facility] NortheastMgqqalzLTRAASZSVG7056-53-62 11:20:00 Test Item Value Reference Range Interpretation Comments Neutrophils # (test code = Neutrophils 6.8 1.5-8.1 #) [facility]HsuplclFBNMZHZMMG2200-72-58 11:20:00 Test Item Value Reference Range Interpretation Comments Monocytes (test code = Monocytes) 5.7 2.0-12.0 [facility] NortheastTiiaqjuFIHTOVLWWA2028-10-02 11:20:00 Test Item Value Reference Range Interpretation Comments Lymphocytes (test code = Lymphocytes) 17.4 20.0-40.0 [facility] NortheastNehfvqjTOHXEIVYQZ1884-92-30 11:20:00 Test Item Value Reference Range Interpretation Comments Segs (test code = Segs) 69.1 45.0-75.0 [facility]2019-06-15 11:20:00 Test Item Value Reference Range Interpretation Comments Phosphorus (test code = Phosphorus) 3.8 2.5-4.5 [facility]2019-06-15 11:20:00 Test Item Value Reference Range Interpretation Comments Magnesium Lvl (test code = Magnesium 2.1 1.8-2.4 Lvl) [facility]KtifnxhFTXZYAWWHX2983-99-71 11:20:00 Test Item Value Reference Range Interpretation Comments Hgb (test code = Hgb) 9.9 12.0-16.0 [facility]KzzgfmpYUPZLWBJLA5934-02-02 11:20:00 Test Item Value Reference Range Interpretation Comments RDW (test code = RDW) 15.8 11.5-14.5 [facility] NortheastXwhukanAJWMWNAUEU0076-22-35 11:20:00 Test Item Value Reference Range Interpretation Comments WBC (test code = WBC) 9.9 3.7-10.4 [facility] NortheastHchrqvuLINHSTMOMU0416-05-70 11:20:00 Test Item Value Reference Range Interpretation Comments Platelet (test code = Platelet) 355 133-450 [facility] NortheastLhdpinoSBFKEIOYWL6331-61-70 11:20:00 Test Item Value Reference Range Interpretation Comments Hct (test code = Hct) 29.0 36.0-48.0 [facility] NortheastCrbnlgzERJKEZUXQT0406-11-55 11:20:00 Test Item Value Reference Range Interpretation Comments MCH (test code = MCH) 31.6 pg 27.0-31.0 [facility] NortheastUykazalMTMFNOSMBA4766-73-78 11:20:00 Test Item Value Reference Range Interpretation Comments MCV (test code = MCV) 92.3 80.0-98.0 [facility] NortheastSspysjyXTYEIGNCKD9265-35-19 11:20:00 Test Item Value Reference Range Interpretation Comments RBC (test code = RBC) 3.14 4.20-5.40 [facility] NortheastFobxilkFEEQMXZOIY4716-27-21 11:20:00 Test Item Value Reference Range Interpretation Comments MPV (test code = MPV) 7.1 7.4-10.4 [facility] NortheastPwfryqkCPSRAMYLVD9543-30-80 11:20:00 Test Item Value Reference Range Interpretation Comments MCHC (test code = MCHC) 34.3 32.0-36.0 [facility]QfuutkiYLJUEMFBVI5523-62-29 11:20:00 Test Item Value Reference Range Interpretation Comments Lymphocytes # (test code = Lymphocytes 1.7 1.0-5.5 #) [facility]EzbvxzrVIUUHNKVKE6370-25-14 11:20:00 Test Item Value Reference Range Interpretation Comments Monocytes # (test code 0.6 See_Comment [Aut omated message] The = Monocytes #) system which generated this result tra nsmitted reference range : <=0.8. The reference r andreia was not used to int erpret this result as normal/abnormal . [facility] NortheastYedjnlzOMIXLLGOTC7746-76-12 11:20:00 Test Item Value Reference Range Interpretation Comments Basophils # (test code 0.1 See_Comment [Aut omated message] The = Basophils #) system which generated this result tra nsmitted reference range : <=0.2. The reference r andreia was not used to int erpret this result as normal/abnormal . [facility] NortheastYwvtktfTIPQCVWDHJ2086-43-44 11:20:00 Test Item Value Reference Range Interpretation Comments Eosinophils # (test code 0.7 See_Comment [A utomated message] The = Eosinophils #) system whic h generated this result tra nsmitted reference range : <=0.5. The reference r andreia was not used to int erpret this result as normal/abnormal . [facility] NortheastOkqknqxBVHGJJLSNI7661-02-42 11:20:00 Test Item Value Reference Range Interpretation Comments Basophils (test code = 0.5 See_Comment [Aut omated message] The Basophils) system which ge nerated this result tra nsmitted reference range : <=1.0. The reference r andreia was not used to int erpret this result as normal/abnormal . [facility] NortheastCjfmgtfVKILPYGBSU0085-58-56 11:20:00 Test Item Value Reference Range Interpretation Comments Eosinophils (test code = 7.3 See_Comment [A utomated message] The Eosinophils) system which ge nerated this result tra nsmitted reference range : <=4.0. The reference r andreia was not used to int erpret this result as normal/abnormal . [facility] NortheastYbgirexGODXVYSKXZ8392-00-89 11:20:00 Test Item Value Reference Range Interpretation Comments Neutrophils # (test code = Neutrophils 6.8 1.5-8.1 #) [facility] NortheastCvaylenNHWHQSJPLZ8724-02-89 11:20:00 Test Item Value Reference Range Interpretation Comments Monocytes (test code = Monocytes) 5.7 2.0-12.0 [facility] NortheastBfsngvgJVSFWGROCX7970-98-20 11:20:00 Test Item Value Reference Range Interpretation Comments Lymphocytes (test code = Lymphocytes) 17.4 20.0-40.0 [facility] NortheastBsdpcvkUYYYHSRWEA6071-88-23 11:20:00 Test Item Value Reference Range Interpretation Comments Segs (test code = Segs) 69.1 45.0-75.0 [facility]2019-06-15 11:20:00 Test Item Value Reference Range Interpretation Comments Phosphorus (test code = Phosphorus) 3.8 2.5-4.5 [facility]2019-06-15 11:20:00 Test Item Value Reference Range Interpretation Comments Magnesium Lvl (test code = Magnesium 2.1 1.8-2.4 Lvl) [facility]AppwvytFMAVGFQBKK4754-40-75 11:20:00 Test Item Value Reference Range Interpretation Comments Hgb (test code = Hgb) 9.9 12.0-16.0 [facility]XbweugkNRSJVBIUAC1075-50-40 11:20:00 Test Item Value Reference Range Interpretation Comments RDW (test code = RDW) 15.8 11.5-14.5 [facility]XjtzffzIVNWRTWKCW0909-04-19 11:20:00 Test Item Value Reference Range Interpretation Comments WBC (test code = WBC) 9.9 3.7-10.4 [facility] NortheastPfmhpqiJMOQQMMTBK6702-51-72 11:20:00 Test Item Value Reference Range Interpretation Comments Platelet (test code = Platelet) 355 133-450 [facility] NortheastRrdmkjkSBKAHWRCIC2293-10-01 11:20:00 Test Item Value Reference Range Interpretation Comments Hct (test code = Hct) 29.0 36.0-48.0 [facility] NortheastEeaiegaWLHZWQJFBK1682-66-80 11:20:00 Test Item Value Reference Range Interpretation Comments MCH (test code = MCH) 31.6 pg 27.0-31.0 [facility] NortheastSogsbqiFWAFHKILRA7959-52-23 11:20:00 Test Item Value Reference Range Interpretation Comments MCV (test code = MCV) 92.3 80.0-98.0 [facility] NortheastUiqrdskHGTIOQRBHW2089-45-85 11:20:00 Test Item Value Reference Range Interpretation Comments RBC (test code = RBC) 3.14 4.20-5.40 [facility] NortheastMagnauaLLQHLNDQKC8948-22-66 11:20:00 Test Item Value Reference Range Interpretation Comments MPV (test code = MPV) 7.1 7.4-10.4 [facility] NortheastEeibcczDNIFNWPUBK8464-23-10 11:20:00 Test Item Value Reference Range Interpretation Comments MCHC (test code = MCHC) 34.3 32.0-36.0 [facility] NortheastAcqfbgmSDNVABYCXC2831-37-31 11:20:00 Test Item Value Reference Range Interpretation Comments Lymphocytes # (test code = Lymphocytes 1.7 1.0-5.5 #) [facility] NortheastWdzwpvxSFJPQLEADR0074-69-32 11:20:00 Test Item Value Reference Range Interpretation Comments Monocytes # (test code 0.6 See_Comment [Aut omated message] The = Monocytes #) system which generated this result tra nsmitted reference range : <=0.8. The reference r andreia was not used to int erpret this result as normal/abnormal . [facility] NortheastUcwyjymJTQVEGFGLX6172-54-44 11:20:00 Test Item Value Reference Range Interpretation Comments Basophils # (test code 0.1 See_Comment [Aut omated message] The = Basophils #) system which generated this result tra nsmitted reference range : <=0.2. The reference r andreia was not used to int erpret this result as normal/abnormal . [facility] NortheastVkowzzqGVEEINCWJG6697-27-88 11:20:00 Test Item Value Reference Range Interpretation Comments Eosinophils # (test code 0.7 See_Comment [A utomated message] The = Eosinophils #) system whic h generated this result tra nsmitted reference range : <=0.5. The reference r andreia was not used to int erpret this result as normal/abnormal . [facility] NortheastUkmhzfgXPKUALBARO9293-75-85 11:20:00 Test Item Value Reference Range Interpretation Comments Basophils (test code = 0.5 See_Comment [Aut omated message] The Basophils) system which ge nerated this result tra nsmitted reference range : <=1.0. The reference r andreia was not used to int erpret this result as normal/abnormal . [facility] NortheastXlizaeqURQFCWNKNS7014-78-74 11:20:00 Test Item Value Reference Range Interpretation Comments Eosinophils (test code = 7.3 See_Comment [A utomated message] The Eosinophils) system which ge nerated this result tra nsmitted reference range : <=4.0. The reference r andreia was not used to int erpret this result as normal/abnormal . [facility] NortheastSfdazpaGCCGVEMMKE9752-39-63 11:20:00 Test Item Value Reference Range Interpretation Comments Neutrophils # (test code = Neutrophils 6.8 1.5-8.1 #) [facility] NortheastRsewruaBVMTPCLOJM2800-39-17 11:20:00 Test Item Value Reference Range Interpretation Comments Monocytes (test code = Monocytes) 5.7 2.0-12.0 [facility] NortheastJhngqrtDHBIQLSHRM2609-61-59 11:20:00 Test Item Value Reference Range Interpretation Comments Lymphocytes (test code = Lymphocytes) 17.4 20.0-40.0 [facility] NortheastPtwheeoKGYIIEPEHZ8151-75-65 11:20:00 Test Item Value Reference Range Interpretation Comments Segs (test code = Segs) 69.1 45.0-75.0 [facility]2019-06-15 11:20:00 Test Item Value Reference Range Interpretation Comments Phosphorus (test code = Phosphorus) 3.8 2.5-4.5 [facility]2019-06-15 11:20:00 Test Item Value Reference Range Interpretation Comments Magnesium Lvl (test code = Magnesium 2.1 1.8-2.4 Lvl) [facility] NortheastFuvlqycMTKQCGDXAY5668-43-66 11:20:00 Test Item Value Reference Range Interpretation Comments Hgb (test code = Hgb) 9.9 12.0-16.0 [facility] NortheastPunpslhFXSOPORNWX9208-45-13 11:20:00 Test Item Value Reference Range Interpretation Comments RDW (test code = RDW) 15.8 11.5-14.5 [facility] NortheastMulrgkyUEBNCAVHBK6240-99-27 11:20:00 Test Item Value Reference Range Interpretation Comments WBC (test code = WBC) 9.9 3.7-10.4 [facility] NortheastNervvlmZLUDAGQAKT4098-87-47 11:20:00 Test Item Value Reference Range Interpretation Comments Platelet (test code = Platelet) 355 133-450 [facility] NortheastCozlsfaVRHJJSJAAC7109-98-10 11:20:00 Test Item Value Reference Range Interpretation Comments Hct (test code = Hct) 29.0 36.0-48.0 [facility] NortheastEsajtoiRPLUAGDKUI4946-36-39 11:20:00 Test Item Value Reference Range Interpretation Comments MCH (test code = MCH) 31.6 pg 27.0-31.0 [facility] NortheastQpqgsroGKFXENXQEJ4399-66-76 11:20:00 Test Item Value Reference Range Interpretation Comments MCV (test code = MCV) 92.3 80.0-98.0 [facility] NortheastQzxfctoTCJIWCCEYO3331-53-67 11:20:00 Test Item Value Reference Range Interpretation Comments RBC (test code = RBC) 3.14 4.20-5.40 [facility] NortheastHqqefqgEQCCAIDQEK7625-97-31 11:20:00 Test Item Value Reference Range Interpretation Comments MPV (test code = MPV) 7.1 7.4-10.4 [facility] NortheastMuiahmlBKBYOHVJRQ1916-55-19 11:20:00 Test Item Value Reference Range Interpretation Comments MCHC (test code = MCHC) 34.3 32.0-36.0 [facility] NortheastLumrpuuWZLCRNKFHP7532-42-44 11:20:00 Test Item Value Reference Range Interpretation Comments Lymphocytes # (test code = Lymphocytes 1.7 1.0-5.5 #) [facility] NortheastWedtamhELHMXKZNHK9217-07-79 11:20:00 Test Item Value Reference Range Interpretation Comments Monocytes # (test code 0.6 See_Comment [Aut omated message] The = Monocytes #) system which generated this result tra nsmitted reference range : <=0.8. The reference r andreia was not used to int erpret this result as normal/abnormal . [facility] NortheastOersczeEWMDCSSEON8491-68-05 11:20:00 Test Item Value Reference Range Interpretation Comments Basophils # (test code 0.1 See_Comment [Aut omated message] The = Basophils #) system which generated this result tra nsmitted reference range : <=0.2. The reference r andreia was not used to int erpret this result as normal/abnormal . [facility] NortheastNmhnzdjRGKHIWBDAI5350-51-31 11:20:00 Test Item Value Reference Range Interpretation Comments Eosinophils # (test code 0.7 See_Comment [A utomated message] The = Eosinophils #) system whic h generated this result tra nsmitted reference range : <=0.5. The reference r andreia was not used to int erpret this result as normal/abnormal . [facility] NortheastYustqtuVTUHWRMFHR4019-48-07 11:20:00 Test Item Value Reference Range Interpretation Comments Basophils (test code = 0.5 See_Comment [Aut omated message] The Basophils) system which ge nerated this result tra nsmitted reference range : <=1.0. The reference r andreia was not used to int erpret this result as normal/abnormal . [facility] NortheastYpzkrguXKCXBHFQTX9017-53-09 11:20:00 Test Item Value Reference Range Interpretation Comments Eosinophils (test code = 7.3 See_Comment [A utomated message] The Eosinophils) system which ge nerated this result tra nsmitted reference range : <=4.0. The reference r andreia was not used to int erpret this result as normal/abnormal . [facility] NortheastZijsjpkCODHSTGDDL5841-42-39 11:20:00 Test Item Value Reference Range Interpretation Comments Neutrophils # (test code = Neutrophils 6.8 1.5-8.1 #) [facility] NortheastQhtephbZWIBEQUJDT6401-28-16 11:20:00 Test Item Value Reference Range Interpretation Comments Monocytes (test code = Monocytes) 5.7 2.0-12.0 [facility] NortheastKdghfhxKUJTCNXBMR7304-86-82 11:20:00 Test Item Value Reference Range Interpretation Comments Lymphocytes (test code = Lymphocytes) 17.4 20.0-40.0 [facility] NortheastTwjwschQXZNBGCPIQ1502-69-80 11:20:00 Test Item Value Reference Range Interpretation Comments Segs (test code = Segs) 69.1 45.0-75.0 [facility]2019-06-15 11:20:00 Test Item Value Reference Range Interpretation Comments Phosphorus (test code = Phosphorus) 3.8 2.5-4.5 [facility]2019-06-15 11:20:00 Test Item Value Reference Range Interpretation Comments Magnesium Lvl (test code = Magnesium 2.1 1.8-2.4 Lvl) [facility] NortheastHwktnxrEGZKDJCFOZ6299-06-05 11:20:00 Test Item Value Reference Range Interpretation Comments Hgb (test code = Hgb) 9.9 12.0-16.0 [facility] NortheastZevqxibFOBRHWMZVL7519-37-37 11:20:00 Test Item Value Reference Range Interpretation Comments RDW (test code = RDW) 15.8 11.5-14.5 [facility] NortheastGtflzfcUALSCSEKMC9234-74-64 11:20:00 Test Item Value Reference Range Interpretation Comments WBC (test code = WBC) 9.9 3.7-10.4 [facility] NortheastMjecmorEKLOXAVYLN6698-44-48 11:20:00 Test Item Value Reference Range Interpretation Comments Platelet (test code = Platelet) 355 161-450 [facility] NortheastIdyyrulEZYREMIJGL8432-21-55 11:20:00 Test Item Value Reference Range Interpretation Comments Hct (test code = Hct) 29.0 36.0-48.0 [facility] NortheastIgukjlaFDHSWYYQCD4549-44-87 11:20:00 Test Item Value Reference Range Interpretation Comments MCH (test code = MCH) 31.6 pg 27.0-31.0 [facility] NortheastSaxinrnPQKSWBPTBZ1135-93-45 11:20:00 Test Item Value Reference Range Interpretation Comments MCV (test code = MCV) 92.3 80.0-98.0 [facility] NortheastAaztpysJLMXQMTDCZ2769-36-84 11:20:00 Test Item Value Reference Range Interpretation Comments RBC (test code = RBC) 3.14 4.20-5.40 [facility] NortheastMxttortQEUDTTLDYV3212-23-60 11:20:00 Test Item Value Reference Range Interpretation Comments MPV (test code = MPV) 7.1 7.4-10.4 [facility] NortheastYemeqvlVYTKKPXNRL3429-26-45 11:20:00 Test Item Value Reference Range Interpretation Comments MCHC (test code = MCHC) 34.3 32.0-36.0 [facility] NortheastPspruuzFIUGVXHPXK6255-20-18 11:20:00 Test Item Value Reference Range Interpretation Comments Lymphocytes # (test code = Lymphocytes 1.7 1.0-5.5 #) [facility] NortheastJdcxlkiSZGYWBLPLC6158-86-69 11:20:00 Test Item Value Reference Range Interpretation Comments Monocytes # (test code 0.6 See_Comment [Aut omated message] The = Monocytes #) system which generated this result tra nsmitted reference range : <=0.8. The reference r andreia was not used to int erpret this result as normal/abnormal . [facility] NortheastLwociswVNNYLMCCOJ3941-66-87 11:20:00 Test Item Value Reference Range Interpretation Comments Basophils # (test code 0.1 See_Comment [Aut omated message] The = Basophils #) system which generated this result tra nsmitted reference range : <=0.2. The reference r andreia was not used to int erpret this result as normal/abnormal . [facility] Northea[id number] 11:20:00 Test Item Value Reference Range Interpretation Comments Eosinophils # (test code 0.7 See_Comment [A utomated message] The = Eosinophils #) system whic h generated this result tra nsmitted reference range : <=0.5. The reference r andreia was not used to int erpret this result as normal/abnormal . [facility] NortheastRsswrutLTFRESRBLK9807-32-14 11:20:00 Test Item Value Reference Range Interpretation Comments Basophils (test code = 0.5 See_Comment [Aut omated message] The Basophils) system which ge nerated this result tra nsmitted reference range : <=1.0. The reference r andreia was not used to int erpret this result as normal/abnormal . [facility] NortheastAjjyvxkNMYVJEGHLQ5892-87-95 11:20:00 Test Item Value Reference Range Interpretation Comments Eosinophils (test code = 7.3 See_Comment [A utomated message] The Eosinophils) system which ge nerated this result tra nsmitted reference range : <=4.0. The reference r andreia was not used to int erpret this result as normal/abnormal . [facility] NortheastPbdfqzpBOJLAESLLZ4341-23-40 11:20:00 Test Item Value Reference Range Interpretation Comments Neutrophils # (test code = Neutrophils 6.8 1.5-8.1 #) [facility] NortheastFhnsvyiBKQMVDIOTN3606-45-19 11:20:00 Test Item Value Reference Range Interpretation Comments Monocytes (test code = Monocytes) 5.7 2.0-12.0 [facility] NortheastFpjfhuuATVLVXRLBH0983-22-79 11:20:00 Test Item Value Reference Range Interpretation Comments Lymphocytes (test code = Lymphocytes) 17.4 20.0-40.0 [facility] NortheastDawufzjIVPVNHRIFP7679-88-66 11:20:00 Test Item Value Reference Range Interpretation Comments Segs (test code = Segs) 69.1 45.0-75.0 [facility] [id number] 11:20:00 Test Item Value Reference Range Interpretation Comments Phosphorus (test code = Phosphorus) 3.8 2.5-4.5 [facility] [id number] 11:20:00 Test Item Value Reference Range Interpretation Comments Magnesium Lvl (test code = Magnesium 2.1 1.8-2.4 Lvl) [facility] NortheastVakjdejPAEVIDMYWO3402-94-95 11:20:00 Test Item Value Reference Range Interpretation Comments Hgb (test code = Hgb) 9.9 12.0-16.0 [facility] NortheastZqentdcENJFBBNLCJ7682-69-82 11:20:00 Test Item Value Reference Range Interpretation Comments RDW (test code = RDW) 15.8 11.5-14.5 [facility] NortheastPtnnmusNTYYFJBRLP2123-64-95 11:20:00 Test Item Value Reference Range Interpretation Comments WBC (test code = WBC) 9.9 3.7-10.4 [facility] NortheastWcexbgzEWQODDVAPB0915-70-37 11:20:00 Test Item Value Reference Range Interpretation Comments Platelet (test code = Platelet) 355 133-450 [facility] NortheastDvmjwzgNOUQXBCIPS6293-23-55 11:20:00 Test Item Value Reference Range Interpretation Comments Hct (test code = Hct) 29.0 36.0-48.0 [facility] NortheastHttcnpxLKFGKYFABC6059-65-91 11:20:00 Test Item Value Reference Range Interpretation Comments MCH (test code = MCH) 31.6 pg 27.0-31.0 [facility] NortheastBmklybqPMGXWMZXKT9532-72-62 11:20:00 Test Item Value Reference Range Interpretation Comments MCV (test code = MCV) 92.3 80.0-98.0 [facility] NortheastIwptnwrNBMENFFEEQ6000-05-08 11:20:00 Test Item Value Reference Range Interpretation Comments RBC (test code = RBC) 3.14 4.20-5.40 [facility] NortheastKzvurliXYVIQRLOFD9968-34-72 11:20:00 Test Item Value Reference Range Interpretation Comments MPV (test code = MPV) 7.1 7.4-10.4 [facility] NortheastZuhtmjrDAHFVFGMBR6242-47-88 11:20:00 Test Item Value Reference Range Interpretation Comments MCHC (test code = MCHC) 34.3 32.0-36.0 [facility] NortheastKqsffamVZEBHYUBRP4573-76-61 11:20:00 Test Item Value Reference Range Interpretation Comments Lymphocytes # (test code = Lymphocytes 1.7 1.0-5.5 #) [facility] NortheastYcbqvfsUJARFEWMQP0512-24-28 11:20:00 Test Item Value Reference Range Interpretation Comments Monocytes # (test code 0.6 See_Comment [Aut omated message] The = Monocytes #) system which generated this result tra nsmitted reference range : <=0.8. The reference r andreia was not used to int erpret this result as normal/abnormal . [facility] NortheastNetwycyEFGWXPJPLP3144-26-77 11:20:00 Test Item Value Reference Range Interpretation Comments Basophils # (test code 0.1 See_Comment [Aut omated message] The = Basophils #) system which generated this result tra nsmitted reference range : <=0.2. The reference r andreia was not used to int erpret this result as normal/abnormal . [facility] NortheastBqyxyoeZGOZQVJDYD9273-74-84 11:20:00 Test Item Value Reference Range Interpretation Comments Eosinophils # (test code 0.7 See_Comment [A utomated message] The = Eosinophils #) system whic h generated this result tra nsmitted reference range : <=0.5. The reference r andreia was not used to int erpret this result as normal/abnormal . [facility] [id number] 11:00:00 Test Item Value Reference Range Interpretation Comments Phosphorus (test code = Phosphorus) 2.6 2.5-4.5 [facility] [id number] 11:00:00 Test Item Value Reference Range Interpretation Comments Magnesium Lvl (test code = Magnesium 1.8 1.8-2.4 Lvl) [facility] NortheastVzejzjkFEBQJPNQLE1492-62-11 11:00:00 Test Item Value Reference Range Interpretation Comments Eosinophils (test code = Eosinophils) 8.8 <=4.0 [facility] NortheastIakimicRFEICGMKUD4502-54-83 11:00:00 Test Item Value Reference Range Interpretation Comments Segs (test code = Segs) 52.0 45.0-75.0 [facility] NortheastQylsrtiLRVAVXRLDO1436-98-26 11:00:00 Test Item Value Reference Range Interpretation Comments Lymphocytes (test code = Lymphocytes) 29.6 20.0-40.0 [facility] NortheastSqqarraNVMUAYTWYU2653-24-14 11:00:00 Test Item Value Reference Range Interpretation Comments Monocytes (test code = Monocytes) 9.3 2.0-12.0 [facility] NortheastFbjiusmWUBQKXVKBI0410-52-12 11:00:00 Test Item Value Reference Range Interpretation Comments Basophils (test code = Basophils) 0.3 <=1.0 [facility] NortheastBhxubuuNFQAOWXIBC3371-12-47 11:00:00 Test Item Value Reference Range Interpretation Comments Monocytes # (test code = Monocytes #) 0.7 <=0.8 [facility] NortheastGslibhwLEPSRMZAVG0382-09-81 11:00:00 Test Item Value Reference Range Interpretation Comments Eosinophils # (test code = Eosinophils 0.7 <=0.5 #) [facility] NortheastOrozjoqUDXFYSUMZX0799-79-05 11:00:00 Test Item Value Reference Range Interpretation Comments Neutrophils # (test code = Neutrophils 4.1 1.5-8.1 #) [facility] NortheastXlwqcpuPPCBENSZHY6988-75-71 11:00:00 Test Item Value Reference Range Interpretation Comments Lymphocytes # (test code = Lymphocytes 2.3 1.0-5.5 #) [facility]2019-06-14 11:00:00 Test Item Value Reference Range Interpretation Comments Phosphorus (test code = Phosphorus) 2.6 2.5-4.5 [facility] [id number] 11:00:00 Test Item Value Reference Range Interpretation Comments Magnesium Lvl (test code = Magnesium 1.8 1.8-2.4 Lvl) [facility] NortheastCilurnoHBJEYENJXH4318-57-13 11:00:00 Test Item Value Reference Range Interpretation Comments Eosinophils (test code = 8.8 See_Comment [A utomated message] The Eosinophils) system which ge nerated this result tra nsmitted reference range : <=4.0. The reference r andreia was not used to int erpret this result as normal/abnormal . [facility] NortheastGomspoeXHBORUVAVS9492-04-68 11:00:00 Test Item Value Reference Range Interpretation Comments Segs (test code = Segs) 52.0 45.0-75.0 [facility] NortheastDneepboHEIKSBVRET8192-82-28 11:00:00 Test Item Value Reference Range Interpretation Comments Lymphocytes (test code = Lymphocytes) 29.6 20.0-40.0 [facility] NortheastUhzjmnoKKYYUZFWCN1204-41-58 11:00:00 Test Item Value Reference Range Interpretation Comments Monocytes (test code = Monocytes) 9.3 2.0-12.0 [facility] NortheastOrkuxonOUDYBBRKGT1138-63-60 11:00:00 Test Item Value Reference Range Interpretation Comments Basophils (test code = 0.3 See_Comment [Aut omated message] The Basophils) system which ge nerated this result tra nsmitted reference range : <=1.0. The reference r andreia was not used to int erpret this result as normal/abnormal . [facility] NortheastOuiwdgaURYRHTQJYX2391-76-28 11:00:00 Test Item Value Reference Range Interpretation Comments Monocytes # (test code 0.7 See_Comment [Aut omated message] The = Monocytes #) system which generated this result tra nsmitted reference range : <=0.8. The reference r andreia was not used to int erpret this result as normal/abnormal . [facility] NortheastRwbgrypBWVZCQDHTX9449-35-78 11:00:00 Test Item Value Reference Range Interpretation Comments Eosinophils # (test code 0.7 See_Comment [A utomated message] The = Eosinophils #) system whic h generated this result tra nsmitted reference range : <=0.5. The reference r andreia was not used to int erpret this result as normal/abnormal . [facility] [id number] 11:00:00 Test Item Value Reference Range Interpretation Comments Phosphorus (test code = Phosphorus) 2.6 2.5-4.5 [facility] [id number] 11:00:00 Test Item Value Reference Range Interpretation Comments Magnesium Lvl (test code = Magnesium 1.8 1.8-2.4 Lvl) [facility] NortheastOrexflmTEHINWGRXU2014-24-02 11:00:00 Test Item Value Reference Range Interpretation Comments Eosinophils (test code = 8.8 See_Comment [A utomated message] The Eosinophils) system which ge nerated this result tra nsmitted reference range : <=4.0. The reference r andreia was not used to int erpret this result as normal/abnormal . [facility] NortheastPdogbfpVCIZAFFFIW6094-37-04 11:00:00 Test Item Value Reference Range Interpretation Comments Segs (test code = Segs) 52.0 45.0-75.0 [facility] NortheastWpkecogXSKNFGMBLT9752-16-79 11:00:00 Test Item Value Reference Range Interpretation Comments Lymphocytes (test code = Lymphocytes) 29.6 20.0-40.0 [facility] NortheastWzjpcjzADSBTGKOKC1184-18-99 11:00:00 Test Item Value Reference Range Interpretation Comments Monocytes (test code = Monocytes) 9.3 2.0-12.0 [facility] NortheastRowqkyeNIGEBQFPDN1034-98-58 11:00:00 Test Item Value Reference Range Interpretation Comments Basophils (test code = 0.3 See_Comment [Aut omated message] The Basophils) system which ge nerated this result tra nsmitted reference range : <=1.0. The reference r andreia was not used to int erpret this result as normal/abnormal . [facility] NortheastZlyagjgKJZFFJQXFK8887-83-37 11:00:00 Test Item Value Reference Range Interpretation Comments Monocytes # (test code 0.7 See_Comment [Aut omated message] The = Monocytes #) system which generated this result tra nsmitted reference range : <=0.8. The reference r andreia was not used to int erpret this result as normal/abnormal . [facility] NortheastDzdbjwlGPFJOLDIGJ4406-27-72 11:00:00 Test Item Value Reference Range Interpretation Comments Eosinophils # (test code 0.7 See_Comment [A utomated message] The = Eosinophils #) system whic h generated this result tra nsmitted reference range : <=0.5. The reference r andreia was not used to int erpret this result as normal/abnormal . [facility] NortheastCkszwxpRDKXRFFLLR7255-90-85 11:00:00 Test Item Value Reference Range Interpretation Comments Neutrophils # (test code = Neutrophils 4.1 1.5-8.1 #) [facility] NortheastNifwxeaUILEHELUBT3212-11-69 11:00:00 Test Item Value Reference Range Interpretation Comments Neutrophils # (test code = Neutrophils 4.1 1.5-8.1 #) [facility] NortheastVhpbudgUIEYCYIQLQ0898-90-59 11:00:00 Test Item Value Reference Range Interpretation Comments Lymphocytes # (test code = Lymphocytes 2.3 1.0-5.5 #) [facility] NortheastZzzlsffOXFPNLSKSX8975-39-82 11:00:00 Test Item Value Reference Range Interpretation Comments Lymphocytes # (test code = Lymphocytes 2.3 1.0-5.5 #) [facility]2019-06-14 11:00:00 Test Item Value Reference Range Interpretation Comments Phosphorus (test code = Phosphorus) 2.6 2.5-4.5 [facility]2019-06-14 11:00:00 Test Item Value Reference Range Interpretation Comments Magnesium Lvl (test code = Magnesium 1.8 1.8-2.4 Lvl) [facility] NortheastYshagyvYRUARTUMAB0356-15-82 11:00:00 Test Item Value Reference Range Interpretation Comments Eosinophils (test code = 8.8 See_Comment [A utomated message] The Eosinophils) system which ge nerated this result tra nsmitted reference range : <=4.0. The reference r andreia was not used to int erpret this result as normal/abnormal . [facility] NortheastQhebmthLNFOYQACDM7729-69-41 11:00:00 Test Item Value Reference Range Interpretation Comments Segs (test code = Segs) 52.0 45.0-75.0 [facility] NortheastZhzdafqNCTWSAQKAP0161-35-41 11:00:00 Test Item Value Reference Range Interpretation Comments Lymphocytes (test code = Lymphocytes) 29.6 20.0-40.0 [facility] NortheastLzdabmhBOMJCMWMIG2902-27-84 11:00:00 Test Item Value Reference Range Interpretation Comments Monocytes (test code = Monocytes) 9.3 2.0-12.0 [facility] NortheastSovyogsDIOVZNWMBW9342-94-05 11:00:00 Test Item Value Reference Range Interpretation Comments Basophils (test code = 0.3 See_Comment [Aut omated message] The Basophils) system which ge nerated this result tra nsmitted reference range : <=1.0. The reference r andreia was not used to int erpret this result as normal/abnormal . [facility] NortheastNkybjcaLKYOLCLZCE3956-76-92 11:00:00 Test Item Value Reference Range Interpretation Comments Monocytes # (test code 0.7 See_Comment [Aut omated message] The = Monocytes #) system which generated this result tra nsmitted reference range : <=0.8. The reference r andreia was not used to int erpret this result as normal/abnormal . [facility] NortheastHiaqvcmHAKFPXNRGC3745-01-96 11:00:00 Test Item Value Reference Range Interpretation Comments Eosinophils # (test code 0.7 See_Comment [A utomated message] The = Eosinophils #) system whic h generated this result tra nsmitted reference range : <=0.5. The reference r andreia was not used to int erpret this result as normal/abnormal . [facility] NortheastLmptzulGCUZNBAKEM8120-39-36 11:00:00 Test Item Value Reference Range Interpretation Comments Neutrophils # (test code = Neutrophils 4.1 1.5-8.1 #) [facility] NortheastTuebitxOAWNCJQQFD2081-76-18 11:00:00 Test Item Value Reference Range Interpretation Comments Lymphocytes # (test code = Lymphocytes 2.3 1.0-5.5 #) [facility]2019-06-14 11:00:00 Test Item Value Reference Range Interpretation Comments Phosphorus (test code = Phosphorus) 2.6 2.5-4.5 [facility]2019-06-14 11:00:00 Test Item Value Reference Range Interpretation Comments Magnesium Lvl (test code = Magnesium 1.8 1.8-2.4 Lvl) [facility] NortheastYbueklhGEKTZHNXRA5070-46-71 11:00:00 Test Item Value Reference Range Interpretation Comments Eosinophils (test code = 8.8 See_Comment [A utomated message] The Eosinophils) system which ge nerated this result tra nsmitted reference range : <=4.0. The reference r andreia was not used to int erpret this result as normal/abnormal . [facility] NortheastLskdxnzTDVPMFMBZO6604-56-37 11:00:00 Test Item Value Reference Range Interpretation Comments Segs (test code = Segs) 52.0 45.0-75.0 [facility] NortheastAhbjtvlSEPEOLBITN0508-62-69 11:00:00 Test Item Value Reference Range Interpretation Comments Lymphocytes (test code = Lymphocytes) 29.6 20.0-40.0 [facility] NortheastEsimyyjFGDSSJKNWZ7550-30-61 11:00:00 Test Item Value Reference Range Interpretation Comments Monocytes (test code = Monocytes) 9.3 2.0-12.0 [facility] NortheastIeufqhmTHRQZRRGXM6083-39-73 11:00:00 Test Item Value Reference Range Interpretation Comments Basophils (test code = 0.3 See_Comment [Aut omated message] The Basophils) system which ge nerated this result tra nsmitted reference range : <=1.0. The reference r andreia was not used to int erpret this result as normal/abnormal . [facility] NortheastCybgoziWEWIMYYDLV7892-55-27 11:00:00 Test Item Value Reference Range Interpretation Comments Monocytes # (test code 0.7 See_Comment [Aut omated message] The = Monocytes #) system which generated this result tra nsmitted reference range : <=0.8. The reference r andreia was not used to int erpret this result as normal/abnormal . [facility] NortheastTudlvzpWDKMDUVMWN8846-95-48 11:00:00 Test Item Value Reference Range Interpretation Comments Eosinophils # (test code 0.7 See_Comment [A utomated message] The = Eosinophils #) system whic h generated this result tra nsmitted reference range : <=0.5. The reference r andreia was not used to int erpret this result as normal/abnormal . [facility] NortheastLeqlrgwVQLKRCFPUG7324-50-01 11:00:00 Test Item Value Reference Range Interpretation Comments Neutrophils # (test code = Neutrophils 4.1 1.5-8.1 #) [facility] NortheastStdnfqhTZEIQAOQDP4943-67-33 11:00:00 Test Item Value Reference Range Interpretation Comments Lymphocytes # (test code = Lymphocytes 2.3 1.0-5.5 #) [facility]2019-06-14 11:00:00 Test Item Value Reference Range Interpretation Comments Phosphorus (test code = Phosphorus) 2.6 2.5-4.5 [facility]2019-06-14 11:00:00 Test Item Value Reference Range Interpretation Comments Magnesium Lvl (test code = Magnesium 1.8 1.8-2.4 Lvl) [facility] NortheastCbyjlenNSPHKPTCSF2136-94-41 11:00:00 Test Item Value Reference Range Interpretation Comments Eosinophils (test code = 8.8 See_Comment [A utomated message] The Eosinophils) system which ge nerated this result tra nsmitted reference range : <=4.0. The reference r andreia was not used to int erpret this result as normal/abnormal . [facility] NortheastDgdknvfUEIXIGJJXW0680-84-39 11:00:00 Test Item Value Reference Range Interpretation Comments Segs (test code = Segs) 52.0 45.0-75.0 [facility] NortheastXoseblzPXETACAYIQ5266-30-99 11:00:00 Test Item Value Reference Range Interpretation Comments Lymphocytes (test code = Lymphocytes) 29.6 20.0-40.0 [facility] NortheastLyiqfjlUOEOEZNFOG1944-24-27 11:00:00 Test Item Value Reference Range Interpretation Comments Monocytes (test code = Monocytes) 9.3 2.0-12.0 [facility] NortheastJabjzkaSBLUIHBLSV5856-81-08 11:00:00 Test Item Value Reference Range Interpretation Comments Basophils (test code = 0.3 See_Comment [Aut omated message] The Basophils) system which ge nerated this result tra nsmitted reference range : <=1.0. The reference r andreia was not used to int erpret this result as normal/abnormal . [facility] NortheastTdvjbboNUYWIEERUZ5663-76-39 11:00:00 Test Item Value Reference Range Interpretation Comments Monocytes # (test code 0.7 See_Comment [Aut omated message] The = Monocytes #) system which generated this result tra nsmitted reference range : <=0.8. The reference r andreia was not used to int erpret this result as normal/abnormal . [facility] NortheastHhdtnncYBJOTYHROS7673-85-71 11:00:00 Test Item Value Reference Range Interpretation Comments Eosinophils # (test code 0.7 See_Comment [A utomated message] The = Eosinophils #) system whic h generated this result tra nsmitted reference range : <=0.5. The reference r andreia was not used to int erpret this result as normal/abnormal . [facility] NortheastYdwwgagUVWTLVOOKG6139-01-35 11:00:00 Test Item Value Reference Range Interpretation Comments Neutrophils # (test code = Neutrophils 4.1 1.5-8.1 #) [facility] NortheastWlxasipOXQPXDUAVB8396-60-33 11:00:00 Test Item Value Reference Range Interpretation Comments Lymphocytes # (test code = Lymphocytes 2.3 1.0-5.5 #) [facility]2019-06-14 11:00:00 Test Item Value Reference Range Interpretation Comments Phosphorus (test code = Phosphorus) 2.6 2.5-4.5 [facility] [id number] 11:00:00 Test Item Value Reference Range Interpretation Comments Magnesium Lvl (test code = Magnesium 1.8 1.8-2.4 Lvl) [facility] NortheastKmiqzyxQGPILORVXB6209-90-41 11:00:00 Test Item Value Reference Range Interpretation Comments Eosinophils (test code = 8.8 See_Comment [A utomated message] The Eosinophils) system which ge nerated this result tra nsmitted reference range : <=4.0. The reference r andreia was not used to int erpret this result as normal/abnormal . [facility] NortheastVxaqpilMQVOOUNYLO1155-01-54 11:00:00 Test Item Value Reference Range Interpretation Comments Segs (test code = Segs) 52.0 45.0-75.0 [facility] NortheastYqwdbngJXCRGROZYO8446-25-68 11:00:00 Test Item Value Reference Range Interpretation Comments Lymphocytes (test code = Lymphocytes) 29.6 20.0-40.0 [facility] NortheastYdgeqmbINYLQGGDEC1982-36-15 11:00:00 Test Item Value Reference Range Interpretation Comments Monocytes (test code = Monocytes) 9.3 2.0-12.0 [facility] NortheastWiijztuNSSUZVYPDD0738-11-40 11:00:00 Test Item Value Reference Range Interpretation Comments Basophils (test code = 0.3 See_Comment [Aut omated message] The Basophils) system which ge nerated this result tra nsmitted reference range : <=1.0. The reference r andreia was not used to int erpret this result as normal/abnormal . [facility] NortheastZjlkreiSMEISTJNQQ8324-52-18 11:00:00 Test Item Value Reference Range Interpretation Comments Monocytes # (test code 0.7 See_Comment [Aut omated message] The = Monocytes #) system which generated this result tra nsmitted reference range : <=0.8. The reference r andreia was not used to int erpret this result as normal/abnormal . [facility] NortheastJggckuqQQVCGFDLDI5115-39-72 11:00:00 Test Item Value Reference Range Interpretation Comments Eosinophils # (test code 0.7 See_Comment [A utomated message] The = Eosinophils #) system whic h generated this result tra nsmitted reference range : <=0.5. The reference r andreia was not used to int erpret this result as normal/abnormal . [facility] NortheastMdiptsrDVXAAWNNXI7644-99-60 11:00:00 Test Item Value Reference Range Interpretation Comments Neutrophils # (test code = Neutrophils 4.1 1.5-8.1 #) [facility] NortheastObxwseaTXIRPCBMKU4829-03-15 11:00:00 Test Item Value Reference Range Interpretation Comments Lymphocytes # (test code = Lymphocytes 2.3 1.0-5.5 #) [facility]2019-06-14 11:00:00 Test Item Value Reference Range Interpretation Comments Phosphorus (test code = Phosphorus) 2.6 2.5-4.5 [facility] [id number] 11:00:00 Test Item Value Reference Range Interpretation Comments Magnesium Lvl (test code = Magnesium 1.8 1.8-2.4 Lvl) [facility] NortheastZcxommvUROKAQAPAV9518-62-08 11:00:00 Test Item Value Reference Range Interpretation Comments Eosinophils (test code = 8.8 See_Comment [A utomated message] The Eosinophils) system which ge nerated this result tra nsmitted reference range : <=4.0. The reference r andreia was not used to int erpret this result as normal/abnormal . [facility] NortheastQxxwahyXEFRJNVCZX1011-80-06 11:00:00 Test Item Value Reference Range Interpretation Comments Segs (test code = Segs) 52.0 45.0-75.0 [facility] NortheastTzrqgovCOGPYQEEFZ3365-34-52 11:00:00 Test Item Value Reference Range Interpretation Comments Lymphocytes (test code = Lymphocytes) 29.6 20.0-40.0 [facility] NortheastFdbotmiGHBIUQNASS5042-32-67 11:00:00 Test Item Value Reference Range Interpretation Comments Monocytes (test code = Monocytes) 9.3 2.0-12.0 [facility] NortheastWtecubcEZRSDLLXGM6229-26-31 11:00:00 Test Item Value Reference Range Interpretation Comments Basophils (test code = 0.3 See_Comment [Aut omated message] The Basophils) system which ge nerated this result tra nsmitted reference range : <=1.0. The reference r andreia was not used to int erpret this result as normal/abnormal . [facility] NortheastZqlchguPTSTDRPYYR4327-33-39 11:00:00 Test Item Value Reference Range Interpretation Comments Monocytes # (test code 0.7 See_Comment [Aut omated message] The = Monocytes #) system which generated this result tra nsmitted reference range : <=0.8. The reference r andreia was not used to int erpret this result as normal/abnormal . [facility]ZfbcmvqBKXRFQEGHP6274-46-83 11:00:00 Test Item Value Reference Range Interpretation Comments Eosinophils # (test code 0.7 See_Comment [A utomated message] The = Eosinophils #) system whic h generated this result tra nsmitted reference range : <=0.5. The reference r andreia was not used to int erpret this result as normal/abnormal . [facility]ZvzphbyCXPPWSFCFW5739-55-25 11:00:00 Test Item Value Reference Range Interpretation Comments Neutrophils # (test code = Neutrophils 4.1 1.5-8.1 #) [facility]IrghvtoJLGARZIMTD9350-61-57 11:00:00 Test Item Value Reference Range Interpretation Comments Lymphocytes # (test code = Lymphocytes 2.3 1.0-5.5 #) [facility]2019-06-14 11:00:00 Test Item Value Reference Range Interpretation Comments Phosphorus (test code = Phosphorus) 2.6 2.5-4.5 [facility] [id number] 11:00:00 Test Item Value Reference Range Interpretation Comments Magnesium Lvl (test code = Magnesium 1.8 1.8-2.4 Lvl) [facility]WsbbiooDEQPEMOIUR0264-46-09 11:00:00 Test Item Value Reference Range Interpretation Comments Eosinophils (test code = 8.8 See_Comment [A utomated message] The Eosinophils) system which ge nerated this result tra nsmitted reference range : <=4.0. The reference r andreia was not used to int erpret this result as normal/abnormal . [facility] NortheastQizitxuDBHRAUIACL9030-49-87 11:00:00 Test Item Value Reference Range Interpretation Comments Segs (test code = Segs) 52.0 45.0-75.0 [facility]MohglkfYOOTFTYISU0512-39-36 11:00:00 Test Item Value Reference Range Interpretation Comments Lymphocytes (test code = Lymphocytes) 29.6 20.0-40.0 [facility] NortheastHupgtnnCYFMISTMGO5513-55-61 11:00:00 Test Item Value Reference Range Interpretation Comments Monocytes (test code = Monocytes) 9.3 2.0-12.0 [facility] NortheastFvimkhaMIHCYDKPZV8325-82-52 11:00:00 Test Item Value Reference Range Interpretation Comments Basophils (test code = 0.3 See_Comment [Aut omated message] The Basophils) system which ge nerated this result tra nsmitted reference range : <=1.0. The reference r andreia was not used to int erpret this result as normal/abnormal . [facility] NortheastByhztkaEMGHSCDUEY8858-83-44 11:00:00 Test Item Value Reference Range Interpretation Comments Monocytes # (test code 0.7 See_Comment [Aut omated message] The = Monocytes #) system which generated this result tra nsmitted reference range : <=0.8. The reference r andreia was not used to int erpret this result as normal/abnormal . [facility] NortheastWvniuniTGXHEZZBGT0465-07-89 11:00:00 Test Item Value Reference Range Interpretation Comments Eosinophils # (test code 0.7 See_Comment [A utomated message] The = Eosinophils #) system whic h generated this result tra nsmitted reference range : <=0.5. The reference r andreia was not used to int erpret this result as normal/abnormal . [facility] NortheastIbyilydTYLLAUOEFE6152-67-46 11:00:00 Test Item Value Reference Range Interpretation Comments Neutrophils # (test code = Neutrophils 4.1 1.5-8.1 #) [facility]HkbyekjBRCUHNRFVC3875-51-72 11:00:00 Test Item Value Reference Range Interpretation Comments Lymphocytes # (test code = Lymphocytes 2.3 1.0-5.5 #) [facility]2019-06-14 11:00:00 Test Item Value Reference Range Interpretation Comments Phosphorus (test code = Phosphorus) 2.6 2.5-4.5 [facility]2019-06-14 11:00:00 Test Item Value Reference Range Interpretation Comments Magnesium Lvl (test code = Magnesium 1.8 1.8-2.4 Lvl) [facility] NortheastVccffzcXLHNUDCIUX3169-01-44 11:00:00 Test Item Value Reference Range Interpretation Comments Eosinophils (test code = 8.8 See_Comment [A utomated message] The Eosinophils) system which ge nerated this result tra nsmitted reference range : <=4.0. The reference r andreia was not used to int erpret this result as normal/abnormal . [facility] NortheastSrarcumOMFMCQLEUU4752-43-83 11:00:00 Test Item Value Reference Range Interpretation Comments Segs (test code = Segs) 52.0 45.0-75.0 [facility] NortheastYougniuSTDJWZICKI2583-60-28 11:00:00 Test Item Value Reference Range Interpretation Comments Lymphocytes (test code = Lymphocytes) 29.6 20.0-40.0 [facility] NortheastIloydnaLBNCYATWTU0388-06-50 11:00:00 Test Item Value Reference Range Interpretation Comments Monocytes (test code = Monocytes) 9.3 2.0-12.0 [facility] NortheastBqtbbafUOETGLBRSY3271-74-18 11:00:00 Test Item Value Reference Range Interpretation Comments Basophils (test code = 0.3 See_Comment [Aut omated message] The Basophils) system which ge nerated this result tra nsmitted reference range : <=1.0. The reference r andreia was not used to int erpret this result as normal/abnormal . [facility] NortheastLwrdfjvYKACTWBKPH2877-10-96 11:00:00 Test Item Value Reference Range Interpretation Comments Monocytes # (test code 0.7 See_Comment [Aut omated message] The = Monocytes #) system which generated this result tra nsmitted reference range : <=0.8. The reference r andreia was not used to int erpret this result as normal/abnormal . [facility] NortheastVoxrvzsBCAULYVMQQ5176-81-86 11:00:00 Test Item Value Reference Range Interpretation Comments Eosinophils # (test code 0.7 See_Comment [A utomated message] The = Eosinophils #) system whic h generated this result tra nsmitted reference range : <=0.5. The reference r andreia was not used to int erpret this result as normal/abnormal . [facility] NortheastWlgccbgJDFWBXWTUG5199-72-08 11:00:00 Test Item Value Reference Range Interpretation Comments Neutrophils # (test code = Neutrophils 4.1 1.5-8.1 #) [facility]SftpbvuWKRQZQANGN2149-55-92 11:00:00 Test Item Value Reference Range Interpretation Comments Lymphocytes # (test code = Lymphocytes 2.3 1.0-5.5 #) [facility]2019-06-14 11:00:00 Test Item Value Reference Range Interpretation Comments Phosphorus (test code = Phosphorus) 2.6 2.5-4.5 [facility]2019-06-14 11:00:00 Test Item Value Reference Range Interpretation Comments Magnesium Lvl (test code = Magnesium 1.8 1.8-2.4 Lvl) [facility] NortheastPvmjjnaFNERCUOIDI6125-64-35 11:00:00 Test Item Value Reference Range Interpretation Comments Eosinophils (test code = 8.8 See_Comment [A utomated message] The Eosinophils) system which ge nerated this result tra nsmitted reference range : <=4.0. The reference r andreia was not used to int erpret this result as normal/abnormal . [facility] NortheastYthqhekJCYPKPRZXF0121-99-14 11:00:00 Test Item Value Reference Range Interpretation Comments Segs (test code = Segs) 52.0 45.0-75.0 [facility] NortheastHixesarKQDXFJDRVK0702-45-60 11:00:00 Test Item Value Reference Range Interpretation Comments Lymphocytes (test code = Lymphocytes) 29.6 20.0-40.0 [facility] NortheastLnegxlvOZECCNAKRL1668-77-41 11:00:00 Test Item Value Reference Range Interpretation Comments Monocytes (test code = Monocytes) 9.3 2.0-12.0 [facility] NortheastFenhnjkNDFTJWUQLJ7461-43-13 11:00:00 Test Item Value Reference Range Interpretation Comments Basophils (test code = 0.3 See_Comment [Aut omated message] The Basophils) system which ge nerated this result tra nsmitted reference range : <=1.0. The reference r andreia was not used to int erpret this result as normal/abnormal . [facility] NortheastNrpcxunVIQUAFSWSM3229-70-34 11:00:00 Test Item Value Reference Range Interpretation Comments Monocytes # (test code 0.7 See_Comment [Aut omated message] The = Monocytes #) system which generated this result tra nsmitted reference range : <=0.8. The reference r andreia was not used to int erpret this result as normal/abnormal . [facility] NortheastZnbrrikDNDVHWQFGW6080-02-24 11:00:00 Test Item Value Reference Range Interpretation Comments Eosinophils # (test code 0.7 See_Comment [A utomated message] The = Eosinophils #) system whic h generated this result tra nsmitted reference range : <=0.5. The reference r andreia was not used to int erpret this result as normal/abnormal . [facility] NortheastMbqqlwaVYWWMHDFBG5498-97-66 11:00:00 Test Item Value Reference Range Interpretation Comments Neutrophils # (test code = Neutrophils 4.1 1.5-8.1 #) [facility] NortheastWhhrrpkIIMHKBWZQF3439-89-91 11:00:00 Test Item Value Reference Range Interpretation Comments Lymphocytes # (test code = Lymphocytes 2.3 1.0-5.5 #) [facility]2019-06-14 11:00:00 Test Item Value Reference Range Interpretation Comments Phosphorus (test code = Phosphorus) 2.6 2.5-4.5 [facility]2019-06-14 11:00:00 Test Item Value Reference Range Interpretation Comments Magnesium Lvl (test code = Magnesium 1.8 1.8-2.4 Lvl) [facility] NortheastGjzlzxkLFWNXKKEKI0345-28-99 11:00:00 Test Item Value Reference Range Interpretation Comments Eosinophils (test code = Eosinophils) 8.8 <=4.0 [facility] NortheastDeclmdhMPXTFUTEVM6519-22-53 11:00:00 Test Item Value Reference Range Interpretation Comments Segs (test code = Segs) 52.0 45.0-75.0 [facility] NortheastGhounyoSVJAVURKSW1751-03-46 11:00:00 Test Item Value Reference Range Interpretation Comments Lymphocytes (test code = Lymphocytes) 29.6 20.0-40.0 [facility] NortheastJjidtkrTEMARSEOZW3527-87-80 11:00:00 Test Item Value Reference Range Interpretation Comments Monocytes (test code = Monocytes) 9.3 2.0-12.0 [facility] NortheastYhawlsnWYWSOOCLYS2207-40-55 11:00:00 Test Item Value Reference Range Interpretation Comments Basophils (test code = Basophils) 0.3 <=1.0 [facility] NortheastItylrvoYJXGIGUBHY4876-39-56 11:00:00 Test Item Value Reference Range Interpretation Comments Monocytes # (test code = Monocytes #) 0.7 <=0.8 [facility] NortheastFojufwvOLYZRUDLIQ6485-22-02 11:00:00 Test Item Value Reference Range Interpretation Comments Eosinophils # (test code = Eosinophils 0.7 <=0.5 #) [facility] NortheastOzkgrphNDCOBMGCYR3103-71-77 11:00:00 Test Item Value Reference Range Interpretation Comments Neutrophils # (test code = Neutrophils 4.1 1.5-8.1 #) [facility] NortheastZtbxhwgGJBPXKYXHX3489-51-68 11:00:00 Test Item Value Reference Range Interpretation Comments Lymphocytes # (test code = Lymphocytes 2.3 1.0-5.5 #) [facility] [id number] 11:00:00 Test Item Value Reference Range Interpretation Comments Phosphorus (test code = Phosphorus) 2.6 2.5-4.5 [facility] 11:00:00 Test Item Value Reference Range Interpretation Comments Magnesium Lvl (test code = Magnesium 1.8 1.8-2.4 Lvl) [facility] NortheastOdxivixUZBFCSZSNG9092-71-43 11:00:00 Test Item Value Reference Range Interpretation Comments Eosinophils (test code = 8.8 See_Comment [A utomated message] The Eosinophils) system which ge nerated this result tra nsmitted reference range : <=4.0. The reference r andreia was not used to int erpret this result as normal/abnormal . [facility] NortheastGpdlmtcRPWFBQYKPR4739-28-60 11:00:00 Test Item Value Reference Range Interpretation Comments Segs (test code = Segs) 52.0 45.0-75.0 [facility] NortheastCarsvwgYBQEBCZGEI3520-46-43 11:00:00 Test Item Value Reference Range Interpretation Comments Lymphocytes (test code = Lymphocytes) 29.6 20.0-40.0 [facility] NortheastShyhuszTOYEYNIDOL9227-01-37 11:00:00 Test Item Value Reference Range Interpretation Comments Monocytes (test code = Monocytes) 9.3 2.0-12.0 [facility] NortheastQkitrqtKKGNTQZDRM5884-97-83 11:00:00 Test Item Value Reference Range Interpretation Comments Basophils (test code = 0.3 See_Comment [Aut omated message] The Basophils) system which ge nerated this result tra nsmitted reference range : <=1.0. The reference r andreia was not used to int erpret this result as normal/abnormal . [facility] NortheastKwssrmlTYPAVTRAGD3371-68-16 11:00:00 Test Item Value Reference Range Interpretation Comments Monocytes # (test code 0.7 See_Comment [Aut omated message] The = Monocytes #) system which generated this result tra nsmitted reference range : <=0.8. The reference r andreia was not used to int erpret this result as normal/abnormal . [facility] NortheastVhkukzqVZUMAUEWSM8716-53-24 11:00:00 Test Item Value Reference Range Interpretation Comments Eosinophils # (test code 0.7 See_Comment [A utomated message] The = Eosinophils #) system whic h generated this result tra nsmitted reference range : <=0.5. The reference r andreia was not used to int erpret this result as normal/abnormal . [facility] NortheastYcuqxtyUACIAAKTRN9994-67-09 11:00:00 Test Item Value Reference Range Interpretation Comments Neutrophils # (test code = Neutrophils 4.1 1.5-8.1 #) [facility] NortheastVagwgpePHYUBHVMAO6801-30-88 11:00:00 Test Item Value Reference Range Interpretation Comments Lymphocytes # (test code = Lymphocytes 2.3 1.0-5.5 #) [facility]2019-06-14 11:00:00 Test Item Value Reference Range Interpretation Comments Phosphorus (test code = Phosphorus) 2.6 2.5-4.5 [facility]2019-06-14 11:00:00 Test Item Value Reference Range Interpretation Comments Magnesium Lvl (test code = Magnesium 1.8 1.8-2.4 Lvl) [facility] NortheastSawszrbDNKEBZXYPF1954-82-85 11:00:00 Test Item Value Reference Range Interpretation Comments Eosinophils (test code = 8.8 See_Comment [A utomated message] The Eosinophils) system which ge nerated this result tra nsmitted reference range : <=4.0. The reference r andreia was not used to int erpret this result as normal/abnormal . [facility] NortheastTskqbhmMSCVEEEHGB3794-55-13 11:00:00 Test Item Value Reference Range Interpretation Comments Segs (test code = Segs) 52.0 45.0-75.0 [facility] NortheastMdpntwxPQUCRUZAFN7214-98-72 11:00:00 Test Item Value Reference Range Interpretation Comments Lymphocytes (test code = Lymphocytes) 29.6 20.0-40.0 [facility] NortheastMqujgjdVHBBTDXKSK5734-81-22 11:00:00 Test Item Value Reference Range Interpretation Comments Monocytes (test code = Monocytes) 9.3 2.0-12.0 [facility] NortheastHiphuhwSBLLRCXQXA3701-03-80 11:00:00 Test Item Value Reference Range Interpretation Comments Basophils (test code = 0.3 See_Comment [Aut omated message] The Basophils) system which ge nerated this result tra nsmitted reference range : <=1.0. The reference r andreia was not used to int erpret this result as normal/abnormal . [facility] NortheastShdnhufLGGOPZWSVD0698-49-87 11:00:00 Test Item Value Reference Range Interpretation Comments Monocytes # (test code 0.7 See_Comment [Aut omated message] The = Monocytes #) system which generated this result tra nsmitted reference range : <=0.8. The reference r andreia was not used to int erpret this result as normal/abnormal . [facility] NortheastRtigcrfVOVCDMOTXR8269-93-36 11:00:00 Test Item Value Reference Range Interpretation Comments Eosinophils # (test code 0.7 See_Comment [A utomated message] The = Eosinophils #) system whic h generated this result tra nsmitted reference range : <=0.5. The reference r andreia was not used to int erpret this result as normal/abnormal . [facility] NortheastSztitxvZQKBDDGQFG0135-69-70 11:00:00 Test Item Value Reference Range Interpretation Comments Neutrophils # (test code = Neutrophils 4.1 1.5-8.1 #) [facility] NortheastLsqxblnJKWZWAJOSU9512-02-88 11:00:00 Test Item Value Reference Range Interpretation Comments Lymphocytes # (test code = Lymphocytes 2.3 1.0-5.5 #) [facility]2019-06-14 11:00:00 Test Item Value Reference Range Interpretation Comments Phosphorus (test code = Phosphorus) 2.6 2.5-4.5 [facility]2019-06-14 11:00:00 Test Item Value Reference Range Interpretation Comments Magnesium Lvl (test code = Magnesium 1.8 1.8-2.4 Lvl) [facility] NortheastDxheevfHBFERNOXQA2870-21-79 11:00:00 Test Item Value Reference Range Interpretation Comments Eosinophils (test code = 8.8 See_Comment [A utomated message] The Eosinophils) system which ge nerated this result tra nsmitted reference range : <=4.0. The reference r andreia was not used to int erpret this result as normal/abnormal . [facility] NortheastGwdqlfjLNFKQOWWDB3929-21-68 11:00:00 Test Item Value Reference Range Interpretation Comments Segs (test code = Segs) 52.0 45.0-75.0 [facility] NortheastKttzrwoPJGGOGFGIP4640-32-54 11:00:00 Test Item Value Reference Range Interpretation Comments Lymphocytes (test code = Lymphocytes) 29.6 20.0-40.0 [facility] NortheastQnwdjlgUTBFMREVEU8942-21-17 11:00:00 Test Item Value Reference Range Interpretation Comments Monocytes (test code = Monocytes) 9.3 2.0-12.0 [facility] NortheastNopphmjRNMMXJGXEZ7375-74-74 11:00:00 Test Item Value Reference Range Interpretation Comments Basophils (test code = 0.3 See_Comment [Aut omated message] The Basophils) system which ge nerated this result tra nsmitted reference range : <=1.0. The reference r andreia was not used to int erpret this result as normal/abnormal . [facility] NortheastJzavemaQJONVSEVNG5288-88-28 11:00:00 Test Item Value Reference Range Interpretation Comments Monocytes # (test code 0.7 See_Comment [Aut omated message] The = Monocytes #) system which generated this result tra nsmitted reference range : <=0.8. The reference r andreia was not used to int erpret this result as normal/abnormal . [facility] NortheastKhfvfydVADMONECEO1241-41-48 11:00:00 Test Item Value Reference Range Interpretation Comments Eosinophils # (test code 0.7 See_Comment [A utomated message] The = Eosinophils #) system whic h generated this result tra nsmitted reference range : <=0.5. The reference r andreia was not used to int erpret this result as normal/abnormal . [facility] NortheastHljkxwhXSDXTLRGEG8907-23-73 11:00:00 Test Item Value Reference Range Interpretation Comments Neutrophils # (test code = Neutrophils 4.1 1.5-8.1 #) [facility] NortheastZreykubMWKCZDNDTG9945-92-42 11:00:00 Test Item Value Reference Range Interpretation Comments Lymphocytes # (test code = Lymphocytes 2.3 1.0-5.5 #) [facility]2019-06-14 11:00:00 Test Item Value Reference Range Interpretation Comments Phosphorus (test code = Phosphorus) 2.6 2.5-4.5 [facility]2019-06-14 11:00:00 Test Item Value Reference Range Interpretation Comments Magnesium Lvl (test code = Magnesium 1.8 1.8-2.4 Lvl) [facility] NortheastAilsnhxYKGYNHQYTA7744-75-30 11:00:00 Test Item Value Reference Range Interpretation Comments Eosinophils (test code = 8.8 See_Comment [A utomated message] The Eosinophils) system which ge nerated this result tra nsmitted reference range : <=4.0. The reference r andreia was not used to int erpret this result as normal/abnormal . [facility] NortheastBkmrhldIRUWCOKZRW7893-56-01 11:00:00 Test Item Value Reference Range Interpretation Comments Segs (test code = Segs) 52.0 45.0-75.0 [facility] NortheastGxsecjkKLUEQWNBZO7499-97-34 11:00:00 Test Item Value Reference Range Interpretation Comments Lymphocytes (test code = Lymphocytes) 29.6 20.0-40.0 [facility] NortheastCxrstonILLNRXZTLH8447-82-54 11:00:00 Test Item Value Reference Range Interpretation Comments Monocytes (test code = Monocytes) 9.3 2.0-12.0 [facility] NortheastEjzawujRADUZDVGSV9653-62-43 11:00:00 Test Item Value Reference Range Interpretation Comments Basophils (test code = 0.3 See_Comment [Aut omated message] The Basophils) system which ge nerated this result tra nsmitted reference range : <=1.0. The reference r andreia was not used to int erpret this result as normal/abnormal . [facility] NortheastMfebngjGPINOLIZBY7977-50-66 11:00:00 Test Item Value Reference Range Interpretation Comments Monocytes # (test code 0.7 See_Comment [Aut omated message] The = Monocytes #) system which generated this result tra nsmitted reference range : <=0.8. The reference r andreia was not used to int erpret this result as normal/abnormal . [facility] NortheastYudyxtiVSHSJWOIPT4227-15-88 11:00:00 Test Item Value Reference Range Interpretation Comments Eosinophils # (test code 0.7 See_Comment [A utomated message] The = Eosinophils #) system whic h generated this result tra nsmitted reference range : <=0.5. The reference r andreia was not used to int erpret this result as normal/abnormal . [facility] NortheastDxffkviKODRQIEZUW2484-86-64 11:00:00 Test Item Value Reference Range Interpretation Comments Neutrophils # (test code = Neutrophils 4.1 1.5-8.1 #) [facility] NortheastTcovfakQNQJSROUQE4169-06-88 11:00:00 Test Item Value Reference Range Interpretation Comments Lymphocytes # (test code = Lymphocytes 2.3 1.0-5.5 #) [facility]2019-06-14 11:00:00 Test Item Value Reference Range Interpretation Comments Phosphorus (test code = Phosphorus) 2.6 2.5-4.5 [facility]2019-06-14 11:00:00 Test Item Value Reference Range Interpretation Comments Magnesium Lvl (test code = Magnesium 1.8 1.8-2.4 Lvl) [facility] NortheastOlzomwqHPTKDXAZGA8333-23-12 11:00:00 Test Item Value Reference Range Interpretation Comments Eosinophils (test code = 8.8 See_Comment [A utomated message] The Eosinophils) system which ge nerated this result tra nsmitted reference range : <=4.0. The reference r andreia was not used to int erpret this result as normal/abnormal . [facility] NortheastNbgzfdzKPNTZJMKXC2062-10-22 11:00:00 Test Item Value Reference Range Interpretation Comments Segs (test code = Segs) 52.0 45.0-75.0 [facility] NortheastMvvitreGFKNXJDCZF7333-04-62 11:00:00 Test Item Value Reference Range Interpretation Comments Lymphocytes (test code = Lymphocytes) 29.6 20.0-40.0 [facility] NortheastNusdpqaOIRLKGHQCL5809-86-73 11:00:00 Test Item Value Reference Range Interpretation Comments Monocytes (test code = Monocytes) 9.3 2.0-12.0 [facility] NortheastRbfsjsgDBPCNGLJJO5611-10-96 11:00:00 Test Item Value Reference Range Interpretation Comments Basophils (test code = 0.3 See_Comment [Aut omated message] The Basophils) system which ge nerated this result tra nsmitted reference range : <=1.0. The reference r andreia was not used to int erpret this result as normal/abnormal . [facility] NortheastLylbowxESKNMBANAW0868-36-34 11:00:00 Test Item Value Reference Range Interpretation Comments Monocytes # (test code 0.7 See_Comment [Aut omated message] The = Monocytes #) system which generated this result tra nsmitted reference range : <=0.8. The reference r andreia was not used to int erpret this result as normal/abnormal . [facility] NortheastJskscwiYXEWYLCFNM2067-58-24 11:00:00 Test Item Value Reference Range Interpretation Comments Eosinophils # (test code 0.7 See_Comment [A utomated message] The = Eosinophils #) system whic h generated this result tra nsmitted reference range : <=0.5. The reference r andreia was not used to int erpret this result as normal/abnormal . [facility] NortheastAqcxdxpKRRKXIYWQG4198-73-76 11:00:00 Test Item Value Reference Range Interpretation Comments Neutrophils # (test code = Neutrophils 4.1 1.5-8.1 #) [facility] NortheastKqwonkfIEGOKMTVMU9426-96-09 11:00:00 Test Item Value Reference Range Interpretation Comments Lymphocytes # (test code = Lymphocytes 2.3 1.0-5.5 #) [facility]2019-06-14 11:00:00 Test Item Value Reference Range Interpretation Comments Phosphorus (test code = Phosphorus) 2.6 2.5-4.5 [facility]2019-06-14 11:00:00 Test Item Value Reference Range Interpretation Comments Magnesium Lvl (test code = Magnesium 1.8 1.8-2.4 Lvl) [facility] NortheastOexpwppAIJERKGDMV6746-73-91 11:00:00 Test Item Value Reference Range Interpretation Comments Eosinophils (test code = 8.8 See_Comment [A utomated message] The Eosinophils) system which ge nerated this result tra nsmitted reference range : <=4.0. The reference r andreia was not used to int erpret this result as normal/abnormal . [facility]dlbzDMYSSEBGSI8261-85-80 11:00:00 Test Item Value Reference Range Interpretation Comments Segs (test code = Segs) 52.0 45.0-75.0 [facility]SrwxnedHDRJWRJLQF0931-35-64 11:00:00 Test Item Value Reference Range Interpretation Comments Lymphocytes (test code = Lymphocytes) 29.6 20.0-40.0 [facility] NortheastGweopsqVPBJHIXSIP1320-55-52 11:00:00 Test Item Value Reference Range Interpretation Comments Monocytes (test code = Monocytes) 9.3 2.0-12.0 [facility] NortheastUqremvtVFXKKDGNWU1953-94-67 11:00:00 Test Item Value Reference Range Interpretation Comments Basophils (test code = 0.3 See_Comment [Aut omated message] The Basophils) system which ge nerated this result tra nsmitted reference range : <=1.0. The reference r andreia was not used to int erpret this result as normal/abnormal . [facility] NortheastYrfftkjERYBHZKOGM4681-53-63 11:00:00 Test Item Value Reference Range Interpretation Comments Monocytes # (test code 0.7 See_Comment [Aut omated message] The = Monocytes #) system which generated this result tra nsmitted reference range : <=0.8. The reference r andreia was not used to int erpret this result as normal/abnormal . [facility] NortheastZmjxvbpZSVDDHCHZV4451-98-39 11:00:00 Test Item Value Reference Range Interpretation Comments Eosinophils # (test code 0.7 See_Comment [A utomated message] The = Eosinophils #) system whic h generated this result tra nsmitted reference range : <=0.5. The reference r andreia was not used to int erpret this result as normal/abnormal . [facility]IywdjeaMBWSORSWON4278-96-89 11:00:00 Test Item Value Reference Range Interpretation Comments Neutrophils # (test code = Neutrophils 4.1 1.5-8.1 #) [facility]WfnjcdnOIRZURZYYX5384-11-42 11:00:00 Test Item Value Reference Range Interpretation Comments Lymphocytes # (test code = Lymphocytes 2.3 1.0-5.5 #) [facility]2019-06-14 11:00:00 Test Item Value Reference Range Interpretation Comments Phosphorus (test code = Phosphorus) 2.6 2.5-4.5 [facility] [id number] 11:00:00 Test Item Value Reference Range Interpretation Comments Magnesium Lvl (test code = Magnesium 1.8 1.8-2.4 Lvl) [facility]SxizjloOLJICSISBJ9421-83-01 11:00:00 Test Item Value Reference Range Interpretation Comments Eosinophils (test code = 8.8 See_Comment [A utomated message] The Eosinophils) system which ge nerated this result tra nsmitted reference range : <=4.0. The reference r andreia was not used to int erpret this result as normal/abnormal . [facility] NortheastFfkritoPKXUMPYSLQ1960-81-18 11:00:00 Test Item Value Reference Range Interpretation Comments Segs (test code = Segs) 52.0 45.0-75.0 [facility] NortheastFitkwthHTXPVKRGIA5527-60-65 11:00:00 Test Item Value Reference Range Interpretation Comments Lymphocytes (test code = Lymphocytes) 29.6 20.0-40.0 [facility] NortheastGzsgowjTEMCREFKEP4314-00-73 11:00:00 Test Item Value Reference Range Interpretation Comments Monocytes (test code = Monocytes) 9.3 2.0-12.0 [facility] NortheastGiuywkrVEKHPPCSGR4691-92-80 11:00:00 Test Item Value Reference Range Interpretation Comments Basophils (test code = 0.3 See_Comment [Aut omated message] The Basophils) system which ge nerated this result tra nsmitted reference range : <=1.0. The reference r andreia was not used to int erpret this result as normal/abnormal . [facility] NortheastQtcbbkgZJLJMLGZIF4803-35-22 11:00:00 Test Item Value Reference Range Interpretation Comments Monocytes # (test code 0.7 See_Comment [Aut omated message] The = Monocytes #) system which generated this result tra nsmitted reference range : <=0.8. The reference r andreia was not used to int erpret this result as normal/abnormal . [facility] NortheastZtnpbneRKUCAQYPUW7996-51-49 11:00:00 Test Item Value Reference Range Interpretation Comments Eosinophils # (test code 0.7 See_Comment [A utomated message] The = Eosinophils #) system whic h generated this result tra nsmitted reference range : <=0.5. The reference r andreia was not used to int erpret this result as normal/abnormal . [facility] NortheastYjkcqpqSRDETMDWGK2549-30-78 11:00:00 Test Item Value Reference Range Interpretation Comments Neutrophils # (test code = Neutrophils 4.1 1.5-8.1 #) [facility]XlspbtvFXXUIKJGMT6816-49-36 11:00:00 Test Item Value Reference Range Interpretation Comments Lymphocytes # (test code = Lymphocytes 2.3 1.0-5.5 #) [facility]2019-06-14 11:00:00 Test Item Value Reference Range Interpretation Comments Phosphorus (test code = Phosphorus) 2.6 2.5-4.5 [facility]2019-06-14 11:00:00 Test Item Value Reference Range Interpretation Comments Magnesium Lvl (test code = Magnesium 1.8 1.8-2.4 Lvl) [facility]DdpdxmmEXPDEKOUWS3227-34-02 11:00:00 Test Item Value Reference Range Interpretation Comments Eosinophils (test code = 8.8 See_Comment [A utomated message] The Eosinophils) system which ge nerated this result tra nsmitted reference range : <=4.0. The reference r andreia was not used to int erpret this result as normal/abnormal . [facility] NortheastRoiqvtwLOBICVZDTJ1113-35-90 11:00:00 Test Item Value Reference Range Interpretation Comments Segs (test code = Segs) 52.0 45.0-75.0 [facility] NortheastGlgjdkxOWQGGYLSPO4048-40-80 11:00:00 Test Item Value Reference Range Interpretation Comments Lymphocytes (test code = Lymphocytes) 29.6 20.0-40.0 [facility] NortheastInimewxKUYAXQYRMO7856-68-54 11:00:00 Test Item Value Reference Range Interpretation Comments Monocytes (test code = Monocytes) 9.3 2.0-12.0 [facility] NortheastHqgpmafEOACCGLHBN1418-35-86 11:00:00 Test Item Value Reference Range Interpretation Comments Basophils (test code = 0.3 See_Comment [Aut omated message] The Basophils) system which ge nerated this result tra nsmitted reference range : <=1.0. The reference r andreia was not used to int erpret this result as normal/abnormal . [facility] NortheastVjrhwlyWEAVYMFHTH8551-83-68 11:00:00 Test Item Value Reference Range Interpretation Comments Monocytes # (test code 0.7 See_Comment [Aut omated message] The = Monocytes #) system which generated this result tra nsmitted reference range : <=0.8. The reference r andreia was not used to int erpret this result as normal/abnormal . [facility] NortheastYhgahqlAGFUWVARYS1233-85-76 11:00:00 Test Item Value Reference Range Interpretation Comments Eosinophils # (test code 0.7 See_Comment [A utomated message] The = Eosinophils #) system whic h generated this result tra nsmitted reference range : <=0.5. The reference r andreia was not used to int erpret this result as normal/abnormal . [facility] NortheastZujbhhwRTAEVYSWUE9212-24-08 11:00:00 Test Item Value Reference Range Interpretation Comments Neutrophils # (test code = Neutrophils 4.1 1.5-8.1 #) [facility] NortheastOchcwimKMVLZLOVDB3799-97-62 11:00:00 Test Item Value Reference Range Interpretation Comments Lymphocytes # (test code = Lymphocytes 2.3 1.0-5.5 #) [facility]2019-06-14 11:00:00 Test Item Value Reference Range Interpretation Comments Phosphorus (test code = Phosphorus) 2.6 2.5-4.5 [facility] [id number] 11:00:00 Test Item Value Reference Range Interpretation Comments Magnesium Lvl (test code = Magnesium 1.8 1.8-2.4 Lvl) [facility]OvgejmbDCPUTQLCIN7827-52-24 11:00:00 Test Item Value Reference Range Interpretation Comments Eosinophils (test code = 8.8 See_Comment [A utomated message] The Eosinophils) system which ge nerated this result tra nsmitted reference range : <=4.0. The reference r andreia was not used to int erpret this result as normal/abnormal . [facility] NortheastDfgbbdjNUGZNKCROM1879-20-45 11:00:00 Test Item Value Reference Range Interpretation Comments Segs (test code = Segs) 52.0 45.0-75.0 [facility] NortheastZvpumpwKLASBXGAMW9002-89-74 11:00:00 Test Item Value Reference Range Interpretation Comments Lymphocytes (test code = Lymphocytes) 29.6 20.0-40.0 [facility] NortheastVwlwacvDUUSKYPIII5205-17-53 11:00:00 Test Item Value Reference Range Interpretation Comments Monocytes (test code = Monocytes) 9.3 2.0-12.0 [facility] NortheastGtbtxksQOOBVEEIXP7579-50-24 11:00:00 Test Item Value Reference Range Interpretation Comments Basophils (test code = 0.3 See_Comment [Aut omated message] The Basophils) system which ge nerated this result tra nsmitted reference range : <=1.0. The reference r andreia was not used to int erpret this result as normal/abnormal . [facility] NortheastTyodipvIQKJOMAAFY6410-66-34 11:00:00 Test Item Value Reference Range Interpretation Comments Monocytes # (test code 0.7 See_Comment [Aut omated message] The = Monocytes #) system which generated this result tra nsmitted reference range : <=0.8. The reference r andreia was not used to int erpret this result as normal/abnormal . [facility] NortheastKcyjkpdFDTYOWZTOH5726-69-70 11:00:00 Test Item Value Reference Range Interpretation Comments Eosinophils # (test code 0.7 See_Comment [A utomated message] The = Eosinophils #) system whic h generated this result tra nsmitted reference range : <=0.5. The reference r andreia was not used to int erpret this result as normal/abnormal . [facility] NortheastMnhedahDKCUNCVHAC2182-38-53 11:00:00 Test Item Value Reference Range Interpretation Comments Neutrophils # (test code = Neutrophils 4.1 1.5-8.1 #) [facility]HjrhoruCBZMAAAQLT0657-04-64 11:00:00 Test Item Value Reference Range Interpretation Comments Lymphocytes # (test code = Lymphocytes 2.3 1.0-5.5 #) [facility]2019-06-14 11:00:00 Test Item Value Reference Range Interpretation Comments Phosphorus (test code = Phosphorus) 2.6 2.5-4.5 [facility]2019-06-14 11:00:00 Test Item Value Reference Range Interpretation Comments Magnesium Lvl (test code = Magnesium 1.8 1.8-2.4 Lvl) [facility] NortheastUfmendlKISTDLQFAU4797-27-52 11:00:00 Test Item Value Reference Range Interpretation Comments Eosinophils (test code = 8.8 See_Comment [A utomated message] The Eosinophils) system which ge nerated this result tra nsmitted reference range : <=4.0. The reference r andreia was not used to int erpret this result as normal/abnormal . [facility] NortheastVfccrelUOQGUFPHKL0515-37-19 11:00:00 Test Item Value Reference Range Interpretation Comments Segs (test code = Segs) 52.0 45.0-75.0 [facility] NortheastTfstthtIZOZRYDHMJ1161-87-42 11:00:00 Test Item Value Reference Range Interpretation Comments Lymphocytes (test code = Lymphocytes) 29.6 20.0-40.0 [facility] NortheastBxbvyluSUXBBSGGKD7047-62-91 11:00:00 Test Item Value Reference Range Interpretation Comments Monocytes (test code = Monocytes) 9.3 2.0-12.0 [facility] NortheastVgkjfppJHINBWESXP4831-87-87 11:00:00 Test Item Value Reference Range Interpretation Comments Basophils (test code = 0.3 See_Comment [Aut omated message] The Basophils) system which ge nerated this result tra nsmitted reference range : <=1.0. The reference r andreia was not used to int erpret this result as normal/abnormal . [facility] NortheastJqflotwHXXLNRDBXA2922-13-66 11:00:00 Test Item Value Reference Range Interpretation Comments Monocytes # (test code 0.7 See_Comment [Aut omated message] The = Monocytes #) system which generated this result tra nsmitted reference range : <=0.8. The reference r andreia was not used to int erpret this result as normal/abnormal . [facility] NortheastXombaqxNNURXMTMUL5925-22-52 11:00:00 Test Item Value Reference Range Interpretation Comments Eosinophils # (test code 0.7 See_Comment [A utomated message] The = Eosinophils #) system whic h generated this result tra nsmitted reference range : <=0.5. The reference r andreia was not used to int erpret this result as normal/abnormal . [facility] NortheastZvgrrhiASBMGLTPFU4304-05-21 11:00:00 Test Item Value Reference Range Interpretation Comments Neutrophils # (test code = Neutrophils 4.1 1.5-8.1 #) [facility]WfevxwgHSIGFTXDXO5291-77-54 11:00:00 Test Item Value Reference Range Interpretation Comments Lymphocytes # (test code = Lymphocytes 2.3 1.0-5.5 #) [facility]2019-06-14 11:00:00 Test Item Value Reference Range Interpretation Comments Phosphorus (test code = Phosphorus) 2.6 2.5-4.5 [facility]2019-06-14 11:00:00 Test Item Value Reference Range Interpretation Comments Magnesium Lvl (test code = Magnesium 1.8 1.8-2.4 Lvl) [facility] NortheastBwwuxsgPHHRWJRMUB0554-75-53 11:00:00 Test Item Value Reference Range Interpretation Comments Eosinophils (test code = 8.8 See_Comment [A utomated message] The Eosinophils) system which ge nerated this result tra nsmitted reference range : <=4.0. The reference r andreia was not used to int erpret this result as normal/abnormal . [facility]XvpzxtfSMUOLBSDIL2876-13-25 11:00:00 Test Item Value Reference Range Interpretation Comments Segs (test code = Segs) 52.0 45.0-75.0 [facility] NortheastVnpwsacXOQVHYABPO6617-33-38 11:00:00 Test Item Value Reference Range Interpretation Comments Lymphocytes (test code = Lymphocytes) 29.6 20.0-40.0 [facility] NortheastGsniodjRNBGSUCLMV0632-84-20 11:00:00 Test Item Value Reference Range Interpretation Comments Monocytes (test code = Monocytes) 9.3 2.0-12.0 [facility] NortheastHcgkrwlGXYVQGUSOW7676-88-53 11:00:00 Test Item Value Reference Range Interpretation Comments Basophils (test code = 0.3 See_Comment [Aut omated message] The Basophils) system which ge nerated this result tra nsmitted reference range : <=1.0. The reference r andreia was not used to int erpret this result as normal/abnormal . [facility] NortheastZmfrubiAKEMZLZDYT4406-29-17 11:00:00 Test Item Value Reference Range Interpretation Comments Monocytes # (test code 0.7 See_Comment [Aut omated message] The = Monocytes #) system which generated this result tra nsmitted reference range : <=0.8. The reference r andreia was not used to int erpret this result as normal/abnormal . [facility] NortheastCszjiwrFHIKQDNYSP1402-67-56 11:00:00 Test Item Value Reference Range Interpretation Comments Eosinophils # (test code 0.7 See_Comment [A utomated message] The = Eosinophils #) system whic h generated this result tra nsmitted reference range : <=0.5. The reference r andreia was not used to int erpret this result as normal/abnormal . [facility] NortheastZtoypwhRIBXFFRDMD5965-11-36 11:00:00 Test Item Value Reference Range Interpretation Comments Neutrophils # (test code = Neutrophils 4.1 1.5-8.1 #) [facility] NortheastJsuaiygHZUEOWRVNK5413-38-92 11:00:00 Test Item Value Reference Range Interpretation Comments Lymphocytes # (test code = Lymphocytes 2.3 1.0-5.5 #) [facility]2019-06-14 11:00:00 Test Item Value Reference Range Interpretation Comments Phosphorus (test code = Phosphorus) 2.6 2.5-4.5 [facility] [id number] 11:00:00 Test Item Value Reference Range Interpretation Comments Magnesium Lvl (test code = Magnesium 1.8 1.8-2.4 Lvl) [facility] NortheastKyfslerVINLRSUJRO6425-32-18 11:00:00 Test Item Value Reference Range Interpretation Comments Eosinophils (test code = 8.8 See_Comment [A utomated message] The Eosinophils) system which ge nerated this result tra nsmitted reference range : <=4.0. The reference r andreia was not used to int erpret this result as normal/abnormal . [facility] NortheastLznxlfeZUQJORGEJD0316-18-01 11:00:00 Test Item Value Reference Range Interpretation Comments Segs (test code = Segs) 52.0 45.0-75.0 [facility] NortheastNpdumduJFLHTFACKE6878-94-98 11:00:00 Test Item Value Reference Range Interpretation Comments Lymphocytes (test code = Lymphocytes) 29.6 20.0-40.0 [facility] NortheastUwnpzfaCVONXCHZER6454-48-49 11:00:00 Test Item Value Reference Range Interpretation Comments Monocytes (test code = Monocytes) 9.3 2.0-12.0 [facility] NortheastXvlumotQBFOMIQJRW8182-53-50 11:00:00 Test Item Value Reference Range Interpretation Comments Basophils (test code = 0.3 See_Comment [Aut omated message] The Basophils) system which ge nerated this result tra nsmitted reference range : <=1.0. The reference r andreia was not used to int erpret this result as normal/abnormal . [facility] NortheastHgigzhrLJJSYBYYIP8717-47-99 11:00:00 Test Item Value Reference Range Interpretation Comments Monocytes # (test code 0.7 See_Comment [Aut omated message] The = Monocytes #) system which generated this result tra nsmitted reference range : <=0.8. The reference r andreia was not used to int erpret this result as normal/abnormal . [facility] NortheastIjjihslSWGWCLPSGI4822-68-54 11:00:00 Test Item Value Reference Range Interpretation Comments Eosinophils # (test code 0.7 See_Comment [A utomated message] The = Eosinophils #) system whic h generated this result tra nsmitted reference range : <=0.5. The reference r andreia was not used to int erpret this result as normal/abnormal . [facility] NortheastGlqyciaTLRKSZLCXO4623-76-61 11:00:00 Test Item Value Reference Range Interpretation Comments Neutrophils # (test code = Neutrophils 4.1 1.5-8.1 #) [facility] NortheastSdzeyjpTTLGRWNYLN7640-87-29 11:00:00 Test Item Value Reference Range Interpretation Comments Lymphocytes # (test code = Lymphocytes 2.3 1.0-5.5 #) [facility]2019-06-14 11:00:00 Test Item Value Reference Range Interpretation Comments Phosphorus (test code = Phosphorus) 2.6 2.5-4.5 [facility] [id number] 11:00:00 Test Item Value Reference Range Interpretation Comments Magnesium Lvl (test code = Magnesium 1.8 1.8-2.4 Lvl) [facility] NortheastRxpogshLHVSVPBDTT8483-54-37 11:00:00 Test Item Value Reference Range Interpretation Comments Eosinophils (test code = 8.8 See_Comment [A utomated message] The Eosinophils) system which ge nerated this result tra nsmitted reference range : <=4.0. The reference r andreia was not used to int erpret this result as normal/abnormal . [facility] NortheastCxdqddmJFGMOPWOUF1781-20-78 11:00:00 Test Item Value Reference Range Interpretation Comments Segs (test code = Segs) 52.0 45.0-75.0 [facility] NortheastVedcowtHVIMNDXBSP8888-05-18 11:00:00 Test Item Value Reference Range Interpretation Comments Lymphocytes (test code = Lymphocytes) 29.6 20.0-40.0 [facility] NortheastFmgrekgQSPCOITMMQ5055-32-14 11:00:00 Test Item Value Reference Range Interpretation Comments Monocytes (test code = Monocytes) 9.3 2.0-12.0 [facility] NortheastXdhzotjVEOVMOMKEH7222-09-96 11:00:00 Test Item Value Reference Range Interpretation Comments Basophils (test code = 0.3 See_Comment [Aut omated message] The Basophils) system which ge nerated this result tra nsmitted reference range : <=1.0. The reference r andreia was not used to int erpret this result as normal/abnormal . [facility] NortheastEgyuqilNTMMUVHPAF6078-44-26 11:00:00 Test Item Value Reference Range Interpretation Comments Monocytes # (test code 0.7 See_Comment [Aut omated message] The = Monocytes #) system which generated this result tra nsmitted reference range : <=0.8. The reference r andreia was not used to int erpret this result as normal/abnormal . [facility] NortheastIwztzijEBAIEURAGO4054-69-57 11:00:00 Test Item Value Reference Range Interpretation Comments Eosinophils # (test code 0.7 See_Comment [A utomated message] The = Eosinophils #) system whic h generated this result tra nsmitted reference range : <=0.5. The reference r andreia was not used to int erpret this result as normal/abnormal . [facility] NortheastEqaniktXHSBNSWIRX7506-57-43 11:00:00 Test Item Value Reference Range Interpretation Comments Neutrophils # (test code = Neutrophils 4.1 1.5-8.1 #) [facility] NortheastGzkkfstKHABNBZBPK7537-48-47 11:00:00 Test Item Value Reference Range Interpretation Comments Lymphocytes # (test code = Lymphocytes 2.3 1.0-5.5 #) [facility]2019-06-14 11:00:00 Test Item Value Reference Range Interpretation Comments Phosphorus (test code = Phosphorus) 2.6 2.5-4.5 [facility] [id number] 11:00:00 Test Item Value Reference Range Interpretation Comments Magnesium Lvl (test code = Magnesium 1.8 1.8-2.4 Lvl) [facility] NortheastPcpftelNZSGDIQYOF2746-14-10 11:00:00 Test Item Value Reference Range Interpretation Comments Eosinophils (test code = 8.8 See_Comment [A utomated message] The Eosinophils) system which ge nerated this result tra nsmitted reference range : <=4.0. The reference r andreia was not used to int erpret this result as normal/abnormal . [facility] NortheastDxqfwlrNKMBJUGOMA1005-61-14 11:00:00 Test Item Value Reference Range Interpretation Comments Segs (test code = Segs) 52.0 45.0-75.0 [facility] NortheastNrybjarZWIPBABTWP0365-25-64 11:00:00 Test Item Value Reference Range Interpretation Comments Lymphocytes (test code = Lymphocytes) 29.6 20.0-40.0 [facility] NortheastPdnldlaSGONBHZPOB0690-30-81 11:00:00 Test Item Value Reference Range Interpretation Comments Monocytes (test code = Monocytes) 9.3 2.0-12.0 [facility] NortheastPspjrtfVOUXOBERIO1618-96-64 11:00:00 Test Item Value Reference Range Interpretation Comments Basophils (test code = 0.3 See_Comment [Aut omated message] The Basophils) system which ge nerated this result tra nsmitted reference range : <=1.0. The reference r andreia was not used to int erpret this result as normal/abnormal . [facility] NortheastBgroavlSADVCUIYZX2686-22-24 11:00:00 Test Item Value Reference Range Interpretation Comments Monocytes # (test code 0.7 See_Comment [Aut omated message] The = Monocytes #) system which generated this result tra nsmitted reference range : <=0.8. The reference r andreia was not used to int erpret this result as normal/abnormal . [facility] NortheastWbkzeshCAADMNSQGO8888-25-50 11:00:00 Test Item Value Reference Range Interpretation Comments Eosinophils # (test code 0.7 See_Comment [A utomated message] The = Eosinophils #) system whic h generated this result tra nsmitted reference range : <=0.5. The reference r andreia was not used to int erpret this result as normal/abnormal . [facility] NortheastPykzvahMXMKLCFRVT8607-59-05 11:00:00 Test Item Value Reference Range Interpretation Comments Neutrophils # (test code = Neutrophils 4.1 1.5-8.1 #) [facility] NortheastQseyehfGCRQETAISQ4095-32-38 11:00:00 Test Item Value Reference Range Interpretation Comments Lymphocytes # (test code = Lymphocytes 2.3 1.0-5.5 #) [facility]2019-06-14 11:00:00 Test Item Value Reference Range Interpretation Comments Phosphorus (test code = Phosphorus) 2.6 2.5-4.5 [facility]2019-06-14 11:00:00 Test Item Value Reference Range Interpretation Comments Magnesium Lvl (test code = Magnesium 1.8 1.8-2.4 Lvl) [facility] NortheastQthqjfjLEXATGJWQL5458-72-79 11:00:00 Test Item Value Reference Range Interpretation Comments Eosinophils (test code = 8.8 See_Comment [A utomated message] The Eosinophils) system which ge nerated this result tra nsmitted reference range : <=4.0. The reference r andreia was not used to int erpret this result as normal/abnormal . [facility] NortheastJvdcqgvUVJFSSORVV4919-85-68 11:00:00 Test Item Value Reference Range Interpretation Comments Segs (test code = Segs) 52.0 45.0-75.0 [facility] NortheastVwqshlhOLKPSHAFSX2774-59-06 11:00:00 Test Item Value Reference Range Interpretation Comments Lymphocytes (test code = Lymphocytes) 29.6 20.0-40.0 [facility] NortheastHnidkgmJBZPDHHYTE9844-46-60 11:00:00 Test Item Value Reference Range Interpretation Comments Monocytes (test code = Monocytes) 9.3 2.0-12.0 [id number] 11:00:00 Test Item Value Reference Range Interpretation Comments Basophils (test code = 0.3 See_Comment [Aut omated message] The Basophils) system which ge nerated this result tra nsmitted reference range : <=1.0. The reference r andreia was not used to int erpret this result as normal/abnormal . [id number] 11:00:00 Test Item Value Reference Range Interpretation Comments Monocytes # (test code 0.7 See_Comment [Aut omated message] The = Monocytes #) system which generated this result tra nsmitted reference range : <=0.8. The reference r andreia was not used to int erpret this result as normal/abnormal . [id number] 11:00:00 Test Item Value Reference Range Interpretation Comments Eosinophils # (test code 0.7 See_Comment [A utomated message] The = Eosinophils #) system [facility] generated this result tra nsmitted reference range : <=0.5. The reference r andreia was not used to int erpret this result as normal/abnormal . [id number] 11:00:00 Test Item Value Reference Range Interpretation Comments Neutrophils # (test code = Neutrophils 4.1 1.5-8.1 #) [id number] 11:00:00 Test Item Value Reference Range Interpretation Comments Lymphocytes # (test code = Lymphocytes 2.3 1.0-5.5 #) [facility]2019-06-13 20:32:00 Test Item Value Reference Range Interpretation Comments Magnesium Lvl (test code = Magnesium 2.0 1.8-2.4 Lvl) [facility]2019-06-13 20:32:00 Test Item Value Reference Range Interpretation Comments Phosphorus (test code = Phosphorus) 3.1 2.5-4.5 [facility]2019-06-13 20:32:00 Test Item Value Reference Range Interpretation Comments Magnesium Lvl (test code = Magnesium 2.0 1.8-2.4 Lvl) [facility]2019-06-13 20:32:00 Test Item Value Reference Range Interpretation Comments Phosphorus (test code = Phosphorus) 3.1 2.5-4.5 [facility]2019-06-13 20:32:00 Test Item Value Reference Range Interpretation Comments Magnesium Lvl (test code = Magnesium 2.0 1.8-2.4 Lvl) [facility]2019-06-13 20:32:00 Test Item Value Reference Range Interpretation Comments Phosphorus (test code = Phosphorus) 3.1 2.5-4.5 [facility]2019-06-13 20:32:00 Test Item Value Reference Range Interpretation Comments Magnesium Lvl (test code = Magnesium 2.0 1.8-2.4 Lvl) [facility]2019-06-13 20:32:00 Test Item Value Reference Range Interpretation Comments Phosphorus (test code = Phosphorus) 3.1 2.5-4.5 [facility]2019-06-13 20:32:00 Test Item Value Reference Range Interpretation Comments Magnesium Lvl (test code = Magnesium 2.0 1.8-2.4 Lvl) [facility]2019-06-13 20:32:00 Test Item Value Reference Range Interpretation Comments Phosphorus (test code = Phosphorus) 3.1 2.5-4.5 [facility]2019-06-13 20:32:00 Test Item Value Reference Range Interpretation Comments Magnesium Lvl (test code = Magnesium 2.0 1.8-2.4 Lvl) [facility]2019-06-13 20:32:00 Test Item Value Reference Range Interpretation Comments Phosphorus (test code = Phosphorus) 3.1 2.5-4.5 [facility]2019-06-13 20:32:00 Test Item Value Reference Range Interpretation Comments Magnesium Lvl (test code = Magnesium 2.0 1.8-2.4 Lvl) [facility]2019-06-13 20:32:00 Test Item Value Reference Range Interpretation Comments Phosphorus (test code = Phosphorus) 3.1 2.5-4.5 [facility]2019-06-13 20:32:00 Test Item Value Reference Range Interpretation Comments Magnesium Lvl (test code = Magnesium 2.0 1.8-2.4 Lvl) [facility]2019-06-13 20:32:00 Test Item Value Reference Range Interpretation Comments Phosphorus (test code = Phosphorus) 3.1 2.5-4.5 [facility]2019-06-13 20:32:00 Test Item Value Reference Range Interpretation Comments Magnesium Lvl (test code = Magnesium 2.0 1.8-2.4 Lvl) [facility]2019-06-13 20:32:00 Test Item Value Reference Range Interpretation Comments Phosphorus (test code = Phosphorus) 3.1 2.5-4.5 [facility]2019-06-13 20:32:00 Test Item Value Reference Range Interpretation Comments Magnesium Lvl (test code = Magnesium 2.0 1.8-2.4 Lvl) [facility]2019-06-13 20:32:00 Test Item Value Reference Range Interpretation Comments Phosphorus (test code = Phosphorus) 3.1 2.5-4.5 [facility]2019-06-13 20:32:00 Test Item Value Reference Range Interpretation Comments Magnesium Lvl (test code = Magnesium 2.0 1.8-2.4 Lvl) [facility]2019-06-13 20:32:00 Test Item Value Reference Range Interpretation Comments Phosphorus (test code = Phosphorus) 3.1 2.5-4.5 [facility]2019-06-13 20:32:00 Test Item Value Reference Range Interpretation Comments Magnesium Lvl (test code = Magnesium 2.0 1.8-2.4 Lvl) [facility]2019-06-13 20:32:00 Test Item Value Reference Range Interpretation Comments Phosphorus (test code = Phosphorus) 3.1 2.5-4.5 [place] [id number] 20:32:00 Test Item Value Reference Range Interpretation Comments Magnesium Lvl (test code = Magnesium 2.0 1.8-2.4 Lvl) [facility]2019-06-13 20:32:00 Test Item Value Reference Range Interpretation Comments Phosphorus (test code = Phosphorus) 3.1 2.5-4.5 [facility]2019-06-13 20:32:00 Test Item Value Reference Range Interpretation Comments Magnesium Lvl (test code = Magnesium 2.0 1.8-2.4 Lvl) [facility]2019-06-13 20:32:00 Test Item Value Reference Range Interpretation Comments Phosphorus (test code = Phosphorus) 3.1 2.5-4.5 [facility]2019-06-13 20:32:00 Test Item Value Reference Range Interpretation Comments Magnesium Lvl (test code = Magnesium 2.0 1.8-2.4 Lvl) [facility]2019-06-13 20:32:00 Test Item Value Reference Range Interpretation Comments Phosphorus (test code = Phosphorus) 3.1 2.5-4.5 [facility]2019-06-13 20:32:00 Test Item Value Reference Range Interpretation Comments Magnesium Lvl (test code = Magnesium 2.0 1.8-2.4 Lvl) [facility]2019-06-13 20:32:00 Test Item Value Reference Range Interpretation Comments Phosphorus (test code = Phosphorus) 3.1 2.5-4.5 [facility]2019-06-13 20:32:00 Test Item Value Reference Range Interpretation Comments Magnesium Lvl (test code = Magnesium 2.0 1.8-2.4 Lvl) [facility]2019-06-13 20:32:00 Test Item Value Reference Range Interpretation Comments Phosphorus (test code = Phosphorus) 3.1 2.5-4.5 [facility]2019-06-13 20:32:00 Test Item Value Reference Range Interpretation Comments Magnesium Lvl (test code = Magnesium 2.0 1.8-2.4 Lvl) [facility]2019-06-13 20:32:00 Test Item Value Reference Range Interpretation Comments Phosphorus (test code = Phosphorus) 3.1 2.5-4.5 [facility]2019-06-13 20:32:00 Test Item Value Reference Range Interpretation Comments Magnesium Lvl (test code = Magnesium 2.0 1.8-2.4 Lvl) [facility]2019-06-13 20:32:00 Test Item Value Reference Range Interpretation Comments Phosphorus (test code = Phosphorus) 3.1 2.5-4.5 [facility]2019-06-13 20:32:00 Test Item Value Reference Range Interpretation Comments Magnesium Lvl (test code = Magnesium 2.0 1.8-2.4 Lvl) [facility]2019-06-13 20:32:00 Test Item Value Reference Range Interpretation Comments Phosphorus (test code = Phosphorus) 3.1 2.5-4.5 [facility]2019-06-13 20:32:00 Test Item Value Reference Range Interpretation Comments Magnesium Lvl (test code = Magnesium 2.0 1.8-2.4 Lvl) [facility]2019-06-13 20:32:00 Test Item Value Reference Range Interpretation Comments Phosphorus (test code = Phosphorus) 3.1 2.5-4.5 [facility]2019-06-13 20:32:00 Test Item Value Reference Range Interpretation Comments Magnesium Lvl (test code = Magnesium 2.0 1.8-2.4 Lvl) [facility]2019-06-13 20:32:00 Test Item Value Reference Range Interpretation Comments Phosphorus (test code = Phosphorus) 3.1 2.5-4.5 [facility]2019-06-13 20:32:00 Test Item Value Reference Range Interpretation Comments Magnesium Lvl (test code = Magnesium 2.0 1.8-2.4 Lvl) [facility]2019-06-13 20:32:00 Test Item Value Reference Range Interpretation Comments Phosphorus (test code = Phosphorus) 3.1 2.5-4.5 [facility]2019-06-13 20:32:00 Test Item Value Reference Range Interpretation Comments Magnesium Lvl (test code = Magnesium 2.0 1.8-2.4 Lvl) [facility]2019-06-13 20:32:00 Test Item Value Reference Range Interpretation Comments Phosphorus (test code = Phosphorus) 3.1 2.5-4.5 [facility] [id number] 20:32:00 Test Item Value Reference Range Interpretation Comments Magnesium Lvl (test code = Magnesium 2.0 1.8-2.4 Lvl) [facility] [id number] 20:32:00 Test Item Value Reference Range Interpretation Comments Phosphorus (test code = Phosphorus) 3.1 2.5-4.5 [facility] [id number] 20:32:00 Test Item Value Reference Range Interpretation Comments Magnesium Lvl (test code = Magnesium 2.0 1.8-2.4 Lvl) [facility] [id number] 20:32:00 Test Item Value Reference Range Interpretation Comments Phosphorus (test code = Phosphorus) 3.1 2.5-4.5 [facility] [id number] 20:32:00 Test Item Value Reference Range Interpretation Comments Magnesium Lvl (test code = Magnesium 2.0 1.8-2.4 Lvl) [facility] [id number] 20:32:00 Test Item Value Reference Range Interpretation Comments Phosphorus (test code = Phosphorus) 3.1 2.5-4.5 [facility] [id number] 14:13:00 Test Item Value Reference Range Interpretation Comments Gram Stain Report Less Than 25 Squamous (test code = Gram Epithelial Cells/Lpf No Stain Report) Organisms Seen Rare WBC's Good Quality Specimen [facility] Respiratory w/Gram [id number] 14:13:00 Test Item Value Reference Range Interpretation Comments Culture: Respiratory w/Gram Stain Few Yeast (test code = Culture: Respiratory w/Gram Stain) [facility] [id number] 14:13:00 Test Item Value Reference Range Interpretation Comments Gram Stain Report Less Than 25 Squamous (test code = Gram Epithelial Cells/Lpf No Stain Report) Organisms Seen Rare WBC's Good Quality Specimen [facility] Respiratory w/Gram [id number] 14:13:00 Test Item Value Reference Range Interpretation Comments Culture: Respiratory w/Gram Stain Few Yeast (test code = Culture: Respiratory w/Gram Stain) [facility] [id number] 14:13:00 Test Item Value Reference Range Interpretation Comments Gram Stain Report Less Than 25 Squamous (test code = Gram Epithelial Cells/Lpf No Stain Report) Organisms Seen Rare WBC's Good Quality Specimen [facility] Respiratory w/Gram [id number] 14:13:00 Test Item Value Reference Range Interpretation Comments Culture: Respiratory w/Gram Stain Few Yeast (test code = Culture: Respiratory w/Gram Stain) [facility] [id number] 14:13:00 Test Item Value Reference Range Interpretation Comments Gram Stain Report Less Than 25 Squamous (test code = Gram Epithelial Cells/Lpf No Stain Report) Organisms Seen Rare WBC's Good Quality Specimen [facility] Respiratory w/Gram [id number] 14:13:00 Test Item Value Reference Range Interpretation Comments Culture: Respiratory w/Gram Stain Few Yeast (test code = Culture: Respiratory w/Gram Stain) [facility] [id number] 14:13:00 Test Item Value Reference Range Interpretation Comments Gram Stain Report Less Than 25 Squamous (test code = Gram Epithelial Cells/Lpf No Stain Report) Organisms Seen Rare WBC's Good Quality Specimen [facility] Respiratory w/Gram [id number] 14:13:00 Test Item Value Reference Range Interpretation Comments Culture: Respiratory w/Gram Stain Few Yeast (test code = Culture: Respiratory w/Gram Stain) [facility]annGram St[facility] [id number] 14:13:00 Test Item Value Reference Range Interpretation Comments Gram Stain Report Less Than 25 Squamous (test code = Gram Epithelial Cells/Lpf No Stain Report) Organisms Seen Rare WBC's Good Quality Specimen [facility] Respiratory w/Gram [id number] 14:13:00 Test Item Value Reference Range Interpretation Comments Culture: Respiratory w/Gram Stain Few Yeast (test code = Culture: Respiratory w/Gram Stain) [facility] [id number] 14:13:00 Test Item Value Reference Range Interpretation Comments Gram Stain Report Less Than 25 Squamous (test code = Gram Epithelial Cells/Lpf No Stain Report) Organisms Seen Rare WBC's Good Quality Specimen [facility] Respiratory w/Gram [id number] 14:13:00 Test Item Value Reference Range Interpretation Comments Culture: Respiratory w/Gram Stain Few Yeast (test code = Culture: Respiratory w/Gram Stain) [facility] [id number] 14:13:00 Test Item Value Reference Range Interpretation Comments Gram Stain Report Less Than 25 Squamous (test code = Gram Epithelial Cells/Lpf No Stain Report) Organisms Seen Rare WBC's Good Quality Specimen [facility] HermannCulture: Respiratory w/Gram [id number] 14:13:00 Test Item Value Reference Range Interpretation Comments Culture: Respiratory w/Gram Stain Few Yeast (test code = Culture: Respiratory w/Gram Stain) [facility] [id number] 14:13:00 Test Item Value Reference Range Interpretation Comments Gram Stain Report Less Than 25 Squamous (test code = Gram Epithelial Cells/Lpf No Stain Report) Organisms Seen Rare WBC's Good Quality Specimen [facility] Respiratory w/Gram [id number] 14:13:00 Test Item Value Reference Range Interpretation Comments Culture: Respiratory w/Gram Stain Few Yeast (test code = Culture: Respiratory w/Gram Stain) [facility] [id number] 14:13:00 Test Item Value Reference Range Interpretation Comments Gram Stain Report Less Than 25 Squamous (test code = Gram Epithelial Cells/Lpf No Stain Report) Organisms Seen Rare WBC's Good Quality Specimen [facility] Respiratory w/Gram [id number] 14:13:00 Test Item Value Reference Range Interpretation Comments Culture: Respiratory w/Gram Stain Few Yeast (test code = Culture: Respiratory w/Gram Stain) [facility] [id number] 14:13:00 Test Item Value Reference Range Interpretation Comments Gram Stain Report Less Than 25 Squamous (test code = Gram Epithelial Cells/Lpf No Stain Report) Organisms Seen Rare WBC's Good Quality Specimen [facility] Respiratory w/Gram [id number] 14:13:00 Test Item Value Reference Range Interpretation Comments Culture: Respiratory w/Gram Stain Few Yeast (test code = Culture: Respiratory w/Gram Stain) [facility] [id number] 14:13:00 Test Item Value Reference Range Interpretation Comments Gram Stain Report Less Than 25 Squamous (test code = Gram Epithelial Cells/Lpf No Stain Report) Organisms Seen Rare WBC's Good Quality Specimen [facility] Respiratory w/Gram [id number] 14:13:00 Test Item Value Reference Range Interpretation Comments Culture: Respiratory w/Gram Stain Few Yeast (test code = Culture: Respiratory w/Gram Stain) [facility] [id number] 14:13:00 Test Item Value Reference Range Interpretation Comments Gram Stain Report Less Than 25 Squamous (test code = Gram Epithelial Cells/Lpf No Stain Report) Organisms Seen Rare WBC's Good Quality Specimen [facility] Respiratory w/Gram [id number] 14:13:00 Test Item Value Reference Range Interpretation Comments Culture: Respiratory w/Gram Stain Few Yeast (test code = Culture: Respiratory w/Gram Stain) [facility] [id number] 14:13:00 Test Item Value Reference Range Interpretation Comments Gram Stain Report Less Than 25 Squamous (test code = Gram Epithelial Cells/Lpf No Stain Report) Organisms Seen Rare WBC's Good Quality Specimen [facility] Respiratory w/Gram [id number] 14:13:00 Test Item Value Reference Range Interpretation Comments Culture: Respiratory w/Gram Stain Few Yeast (test code = Culture: Respiratory w/Gram Stain) [facility] [id number] 14:13:00 Test Item Value Reference Range Interpretation Comments Gram Stain Report Less Than 25 Squamous (test code = Gram Epithelial Cells/Lpf No Stain Report) Organisms Seen Rare WBC's Good Quality Specimen [facility] Respiratory w/Gram [id number] 14:13:00 Test Item Value Reference Range Interpretation Comments Culture: Respiratory w/Gram Stain Few Yeast (test code = Culture: Respiratory w/Gram Stain) [facility] [id number] 14:13:00 Test Item Value Reference Range Interpretation Comments Gram Stain Report Less Than 25 Squamous (test code = Gram Epithelial Cells/Lpf No Stain Report) Organisms Seen Rare WBC's Good Quality Specimen [facility] Respiratory w/Gram [id number] 14:13:00 Test Item Value Reference Range Interpretation Comments Culture: Respiratory w/Gram Stain Few Yeast (test code = Culture: Respiratory w/Gram Stain) [facility] [id number] 14:13:00 Test Item Value Reference Range Interpretation Comments Gram Stain Report Less Than 25 Squamous (test code = Gram Epithelial Cells/Lpf No Stain Report) Organisms Seen Rare WBC's Good Quality Specimen [facility] Respiratory w/Gram [id number] 14:13:00 Test Item Value Reference Range Interpretation Comments Culture: Respiratory w/Gram Stain Few Yeast (test code = Culture: Respiratory w/Gram Stain) [facility] [id number] 14:13:00 Test Item Value Reference Range Interpretation Comments Gram Stain Report Less Than 25 Squamous (test code = Gram Epithelial Cells/Lpf No Stain Report) Organisms Seen Rare WBC's Good Quality Specimen [facility] Respiratory w/Gram [id number] 14:13:00 Test Item Value Reference Range Interpretation Comments Culture: Respiratory w/Gram Stain Few Yeast (test code = Culture: Respiratory w/Gram Stain) [facility] [id number] 14:13:00 Test Item Value Reference Range Interpretation Comments Gram Stain Report Less Than 25 Squamous (test code = Gram Epithelial Cells/Lpf No Stain Report) Organisms Seen Rare WBC's Good Quality Specimen [facility] Respiratory w/Gram [id number] 14:13:00 Test Item Value Reference Range Interpretation Comments Culture: Respiratory w/Gram Stain Few Yeast (test code = Culture: Respiratory w/Gram Stain) [facility] [id number] 14:13:00 Test Item Value Reference Range Interpretation Comments Gram Stain Report Less Than 25 Squamous (test code = Gram Epithelial Cells/Lpf No Stain Report) Organisms Seen Rare WBC's Good Quality Specimen [facility] Respiratory w/Gram [id number] 14:13:00 Test Item Value Reference Range Interpretation Comments Culture: Respiratory w/Gram Stain Few Yeast (test code = Culture: Respiratory w/Gram Stain) [facility] [id number] 14:13:00 Test Item Value Reference Range Interpretation Comments Gram Stain Report Less Than 25 Squamous (test code = Gram Epithelial Cells/Lpf No Stain Report) Organisms Seen Rare WBC's Good Quality Specimen [facility] Respiratory w/Gram [id number] 14:13:00 Test Item Value Reference Range Interpretation Comments Culture: Respiratory w/Gram Stain Few Yeast (test code = Culture: Respiratory w/Gram Stain) [facility] [id number] 14:13:00 Test Item Value Reference Range Interpretation Comments Gram Stain Report Less Than 25 Squamous (test code = Gram Epithelial Cells/Lpf No Stain Report) Organisms Seen Rare WBC's Good Quality Specimen [facility] Respiratory w/Gram [id number] 14:13:00 Test Item Value Reference Range Interpretation Comments Culture: Respiratory w/Gram Stain Few Yeast (test code = Culture: Respiratory w/Gram Stain) [facility] [id number] 14:13:00 Test Item Value Reference Range Interpretation Comments Gram Stain Report Less Than 25 Squamous (test code = Gram Epithelial Cells/Lpf No Stain Report) Organisms Seen Rare WBC's Good Quality Specimen [facility] Respiratory w/Gram [id number] 14:13:00 Test Item Value Reference Range Interpretation Comments Culture: Respiratory w/Gram Stain Few Yeast (test code = Culture: Respiratory w/Gram Stain) [facility] [id number] 14:13:00 Test Item Value Reference Range Interpretation Comments Gram Stain Report Less Than 25 Squamous (test code = Gram Epithelial Cells/Lpf No Stain Report) Organisms Seen Rare WBC's Good Quality Specimen [facility] Respiratory w/Gram [id number] 14:13:00 Test Item Value Reference Range Interpretation Comments Culture: Respiratory w/Gram Stain Few Yeast (test code = Culture: Respiratory w/Gram Stain) [facility] [id number] 14:13:00 Test Item Value Reference Range Interpretation Comments Gram Stain Report Less Than 25 Squamous (test code = Gram Epithelial Cells/Lpf No Stain Report) Organisms Seen Rare WBC's Good Quality Specimen [facility] Respiratory w/Gram [id number] 14:13:00 Test Item Value Reference Range Interpretation Comments Culture: Respiratory w/Gram Stain Few Yeast (test code = Culture: Respiratory w/Gram Stain) [facility] [id number] 14:13:00 Test Item Value Reference Range Interpretation Comments Gram Stain Report Less Than 25 Squamous (test code = Gram Epithelial Cells/Lpf No Stain Report) Organisms Seen Rare WBC's Good Quality Specimen [facility] Respiratory w/Gram [id number] 14:13:00 Test Item Value Reference Range Interpretation Comments Culture: Respiratory w/Gram Stain Few Yeast (test code = Culture: Respiratory w/Gram Stain) [facility] [id number] 14:13:00 Test Item Value Reference Range Interpretation Comments Gram Stain Report Less Than 25 Squamous (test code = Gram Epithelial Cells/Lpf No Stain Report) Organisms Seen Rare WBC's Good Quality [facility]/Gram [id number] 14:13:00 Test Item Value Reference Range Interpretation Comments Culture: Respiratory w/Gram Stain Few Yeast (test code = Culture: Respiratory w/Gram Stain) [facility] [id number] 11:05:00 Test Item Value Reference Range Interpretation Comments Troponin-I (test code = Troponin-I) 1.15 <=0.40 [id number] 11:05:00 Test Item Value Reference Range Interpretation Comments Monocytes # (test code = Monocytes #) 0.7 <=0.8 [id number] 11:05:00 Test Item Value Reference Range Interpretation Comments Lymphocytes # (test code = Lymphocytes 1.6 1.0-5.5 #) [facility] No[id number] 11:05:00 Test Item Value Reference Range Interpretation Comments Neutrophils # (test code = Neutrophils 3.9 1.5-8.1 #) [facility]ScpzqnpUUBVHYNTNA6384-58-25 11:05:00 Test Item Value Reference Range Interpretation Comments Eosinophils # (test code = Eosinophils 0.6 <=0.5 #) [facility]QmzsdskAQSGGULLQJ9744-35-11 11:05:00 Test Item Value Reference Range Interpretation Comments Eosinophils (test code = Eosinophils) 8.6 <=4.0 [facility]BksqbqlPSEKUVAMRK3039-72-99 11:05:00 Test Item Value Reference Range Interpretation Comments Monocytes (test code = Monocytes) 10.5 2.0-12.0 [facility]GdgpjxqJTEQHBFYIO5910-71-57 11:05:00 Test Item Value Reference Range Interpretation Comments Basophils # (test code = Basophils #) 0.1 <=0.2 [facility] NortheastKovywlgMWJNYTPUAR4692-99-19 11:05:00 Test Item Value Reference Range Interpretation Comments Lymphocytes (test code = Lymphocytes) 23.7 20.0-40.0 [facility] NortheastTrlnbdhRAEJYADUXZ8978-20-25 11:05:00 Test Item Value Reference Range Interpretation Comments Segs (test code = Segs) 56.4 45.0-75.0 [place] 407859-06-13 11:05:00 Test Item Value Reference Range Interpretation Comments Basophils (test code = Basophils) 0.8 <=1.0 [facility] SMOHIXO1240-81-83 11:05:00 Test Item Value Reference Range Interpretation Comments Troponin-I (test code 1.15 See_Comment [Auto mated message] The = Troponin-I) system which g enerated this result transmit dewayne reference range : <=0.40. The reference r andreia was not used to interpr et this result as dallin l/abnormal. [facility] NortheastPfxvsopCTXYGANUKZ9071-43-70 11:05:00 Test Item Value Reference Range Interpretation Comments Monocytes # (test code 0.7 See_Comment [Aut omated message] The = Monocytes #) system which generated this result tra nsmitted reference range : <=0.8. The reference r andreia was not used to int erpret this result as normal/abnormal . [facility] NortheastAcdnvyuUNUAGQEXZU8531-20-45 11:05:00 Test Item Value Reference Range Interpretation Comments Lymphocytes # (test code = Lymphocytes 1.6 1.0-5.5 #) [facility]JesavweEMKJJTFCBL4342-70-45 11:05:00 Test Item Value Reference Range Interpretation Comments Neutrophils # (test code = Neutrophils 3.9 1.5-8.1 #) [facility] NortheastUsgviilODZLCSOLSZ8242-57-70 11:05:00 Test Item Value Reference Range Interpretation Comments Eosinophils # (test code 0.6 See_Comment [A utomated message] The = Eosinophils #) system whic h generated this result tra nsmitted reference range : <=0.5. The reference r andreia was not used to int erpret this result as normal/abnormal . [facility] NortheastIfrvkbuNTPIWZOYOD3329-25-65 11:05:00 Test Item Value Reference Range Interpretation Comments Eosinophils (test code = 8.6 See_Comment [A utomated message] The Eosinophils) system which ge nerated this result tra nsmitted reference range : <=4.0. The reference r andreia was not used to int erpret this result as normal/abnormal . [facility] NortheastHpwrzvgPLMOEIQTRH1806-49-12 11:05:00 Test Item Value Reference Range Interpretation Comments Monocytes (test code = Monocytes) 10.5 2.0-12.0 [facility] NortheastIexcmqrFAIJYMGNKG7793-98-14 11:05:00 Test Item Value Reference Range Interpretation Comments Basophils # (test code 0.1 See_Comment [Aut omated message] The = Basophils #) system which generated this result tra nsmitted reference range : <=0.2. The reference r andreia was not used to int erpret this result as normal/abnormal . [facility] NortheastQckfklyRNHRKMYPPU6137-89-07 11:05:00 Test Item Value Reference Range Interpretation Comments Lymphocytes (test code = Lymphocytes) 23.7 20.0-40.0 [facility] NortheastXvlunueLYKCDJMUWM5843-73-02 11:05:00 Test Item Value Reference Range Interpretation Comments Segs (test code = Segs) 56.4 45.0-75.0 [facility] NortheastXofegdnCMGTEIXRZS5404-87-10 11:05:00 Test Item Value Reference Range Interpretation Comments Basophils (test code = 0.8 See_Comment [Aut omated message] The Basophils) system which ge nerated this result tra nsmitted reference range : <=1.0. The reference r andreia was not used to int erpret this result as normal/abnormal . [facility] BNVNUNW3764-41-57 11:05:00 Test Item Value Reference Range Interpretation Comments Troponin-I (test code 1.15 See_Comment [Auto mated message] The = Troponin-I) system which g enerated this result transmit dewayne reference range : <=0.40. The reference r andreia was not used to interpr et this result as dallin l/abnormal. [facility] NortheastRwfhyeuJUPXYJFDRC2719-49-83 11:05:00 Test Item Value Reference Range Interpretation Comments Monocytes # (test code 0.7 See_Comment [Aut omated message] The = Monocytes #) system which generated this result tra nsmitted reference range : <=0.8. The reference r andreia was not used to int erpret this result as normal/abnormal . [facility] NortheastAoqjaegSNZVPKQFTR9356-90-92 11:05:00 Test Item Value Reference Range Interpretation Comments Lymphocytes # (test code = Lymphocytes 1.6 1.0-5.5 #) [facility]VrlvppiTQEGBWIMBT7789-23-45 11:05:00 Test Item Value Reference Range Interpretation Comments Neutrophils # (test code = Neutrophils 3.9 1.5-8.1 #) [facility] NortheastJsopbsmSYUUNMMGSU1403-33-78 11:05:00 Test Item Value Reference Range Interpretation Comments Eosinophils # (test code 0.6 See_Comment [A utomated message] The = Eosinophils #) system whic h generated this result tra nsmitted reference range : <=0.5. The reference r andreia was not used to int erpret this result as normal/abnormal . [facility] NortheastJurfgkjQBLDZRSPZW6524-33-06 11:05:00 Test Item Value Reference Range Interpretation Comments Eosinophils (test code = 8.6 See_Comment [A utomated message] The Eosinophils) system which ge nerated this result tra nsmitted reference range : <=4.0. The reference r andreia was not used to int erpret this result as normal/abnormal . [facility] NortheastAfahjmoDSSHXPIOZU7006-69-58 11:05:00 Test Item Value Reference Range Interpretation Comments Monocytes (test code = Monocytes) 10.5 2.0-12.0 [facility] NortheastEbxfellJNVCVVUKOB5520-71-89 11:05:00 Test Item Value Reference Range Interpretation Comments Basophils # (test code 0.1 See_Comment [Aut omated message] The = Basophils #) system which generated this result tra nsmitted reference range : <=0.2. The reference r andreia was not used to int erpret this result as normal/abnormal . [facility] NortheastOgjkbsjGUAUJCIRZH3466-58-92 11:05:00 Test Item Value Reference Range Interpretation Comments Lymphocytes (test code = Lymphocytes) 23.7 20.0-40.0 [facility] NortheastFowuzoqJOKQSHXBCA1051-70-50 11:05:00 Test Item Value Reference Range Interpretation Comments Segs (test code = Segs) 56.4 45.0-75.0 [facility] NortheastBkpbbqbDVUNHENONH3177-62-13 11:05:00 Test Item Value Reference Range Interpretation Comments Basophils (test code = 0.8 See_Comment [Aut omated message] The Basophils) system which ge nerated this result tra nsmitted reference range : <=1.0. The reference r andreia was not used to int erpret this result as normal/abnormal . [facility] XDKMBVB9832-30-49 11:05:00 Test Item Value Reference Range Interpretation Comments Troponin-I (test code 1.15 See_Comment [Auto mated message] The = Troponin-I) system which g enerated this result transmit dewayne reference range : <=0.40. The reference r andreia was not used to interpr et this result as dallin l/abnormal. [facility] NortheastJeipzcnDMSVYAHSSG2394-77-34 11:05:00 Test Item Value Reference Range Interpretation Comments Monocytes # (test code 0.7 See_Comment [Aut omated message] The = Monocytes #) system which generated this result tra nsmitted reference range : <=0.8. The reference r nadreia was not used to int erpret this result as normal/abnormal . [facility] NortheastAsujrjcKFLLYQBDDH9526-85-94 11:05:00 Test Item Value Reference Range Interpretation Comments Lymphocytes # (test code = Lymphocytes 1.6 1.0-5.5 #) [facility] NortheastMkffxmyEBOGDXYFGP9544-61-55 11:05:00 Test Item Value Reference Range Interpretation Comments Neutrophils # (test code = Neutrophils 3.9 1.5-8.1 #) [facility] NortheastWafwybuQWAWQRPIJZ1740-56-34 11:05:00 Test Item Value Reference Range Interpretation Comments Eosinophils # (test code 0.6 See_Comment [A utomated message] The = Eosinophils #) system wh h generated this result tra nsmitted reference range : <=0.5. The reference r andreia was not used to int erpret this result as normal/abnormal . [facility] NortheastVrehuuuYVJKRKOSMM4262-64-45 11:05:00 Test Item Value Reference Range Interpretation Comments Eosinophils (test code = 8.6 See_Comment [A utomated message] The Eosinophils) system which ge nerated this result tra nsmitted reference range : <=4.0. The reference r adnreia was not used to int erpret this result as normal/abnormal . [facility] NortheastXtkuqdzZNFUSRXBEU0156-40-89 11:05:00 Test Item Value Reference Range Interpretation Comments Monocytes (test code = Monocytes) 10.5 2.0-12.0 [facility] NortheastBckembuQTEPPRLSHJ6835-78-34 11:05:00 Test Item Value Reference Range Interpretation Comments Basophils # (test code 0.1 See_Comment [Aut omated message] The = Basophils #) system which generated this result tra nsmitted reference range : <=0.2. The reference r andreia was not used to int erpret this result as normal/abnormal . [facility] NortheastUncfsmbPTPDBGGVSL8037-01-19 11:05:00 Test Item Value Reference Range Interpretation Comments Lymphocytes (test code = Lymphocytes) 23.7 20.0-40.0 [facility] NortheastHfamyxtXSODFEMAOK9111-97-61 11:05:00 Test Item Value Reference Range Interpretation Comments Segs (test code = Segs) 56.4 45.0-75.0 [facility] NortheastYffecqhLRLDVURFSY6548-66-25 11:05:00 Test Item Value Reference Range Interpretation Comments Basophils (test code = 0.8 See_Comment [Aut omated message] The Basophils) system which ge nerated this result tra nsmitted reference range : <=1.0. The reference r andreia was not used to int erpret this result as normal/abnormal . [facility] RILUIWB0654-79-04 11:05:00 Test Item Value Reference Range Interpretation Comments Troponin-I (test code 1.15 See_Comment [Auto mated message] The = Troponin-I) system which g enerated this result transmit dewayne reference range : <=0.40. The reference r andreia was not used to interpr et this result as dallin l/abnormal. [facility] NortheastUgzyoerBSTEVWTUUO8901-02-62 11:05:00 Test Item Value Reference Range Interpretation Comments Monocytes # (test code 0.7 See_Comment [Aut omated message] The = Monocytes #) system which generated this result tra nsmitted reference range : <=0.8. The reference r andreia was not used to int erpret this result as normal/abnormal . [facility] NortheastVvmwmdtAKUPXDIPPX7893-63-96 11:05:00 Test Item Value Reference Range Interpretation Comments Lymphocytes # (test code = Lymphocytes 1.6 1.0-5.5 #) [facility] NortheastOwmbjmtBAZFHEHXCZ1935-85-69 11:05:00 Test Item Value Reference Range Interpretation Comments Neutrophils # (test code = Neutrophils 3.9 1.5-8.1 #) [facility] NortheastLwghqpnSMYJLIXLDB5847-00-72 11:05:00 Test Item Value Reference Range Interpretation Comments Eosinophils # (test code 0.6 See_Comment [A utomated message] The = Eosinophils #) system whic h generated this result tra nsmitted reference range : <=0.5. The reference r andreia was not used to int erpret this result as normal/abnormal . [facility] NortheastXjaibhuDSFXHCJVQJ3310-91-35 11:05:00 Test Item Value Reference Range Interpretation Comments Eosinophils (test code = 8.6 See_Comment [A utomated message] The Eosinophils) system which ge nerated this result tra nsmitted reference range : <=4.0. The reference r andreia was not used to int erpret this result as normal/abnormal . [facility] NortheastGbrufajUPUFZBFUJP7590-49-72 11:05:00 Test Item Value Reference Range Interpretation Comments Monocytes (test code = Monocytes) 10.5 2.0-12.0 [facility] NortheastTheskhpXIPPMYJLSQ5903-28-91 11:05:00 Test Item Value Reference Range Interpretation Comments Basophils # (test code 0.1 See_Comment [Aut omated message] The = Basophils #) system which generated this result tra nsmitted reference range : <=0.2. The reference r andreia was not used to int erpret this result as normal/abnormal . [facility] NortheastSikzxefBMWQNEJHXT4573-13-08 11:05:00 Test Item Value Reference Range Interpretation Comments Lymphocytes (test code = Lymphocytes) 23.7 20.0-40.0 [facility] NortheastXhcewcrCEWSBFOHCY9196-25-90 11:05:00 Test Item Value Reference Range Interpretation Comments Segs (test code = Segs) 56.4 45.0-75.0 [facility] NortheastVerdzhiYPBNEENJTF0080-19-94 11:05:00 Test Item Value Reference Range Interpretation Comments Basophils (test code = 0.8 See_Comment [Aut omated message] The Basophils) system which ge nerated this result tra nsmitted reference range : <=1.0. The reference r andreia was not used to int erpret this result as normal/abnormal . [facility] RZEDSEM9301-68-57 11:05:00 Test Item Value Reference Range Interpretation Comments Troponin-I (test code 1.15 See_Comment [Auto mated message] The = Troponin-I) system which g enerated this result transmit dewayne reference range : <=0.40. The reference r andreia was not used to interpr et this result as dallin l/abnormal. [facility] NortheastTsvtudwEPKJRDKAVL2532-21-86 11:05:00 Test Item Value Reference Range Interpretation Comments Monocytes # (test code 0.7 See_Comment [Aut omated message] The = Monocytes #) system which generated this result tra nsmitted reference range : <=0.8. The reference r andreia was not used to int erpret this result as normal/abnormal . [facility] NortheastPeosxrdWMMKMQQYCQ8017-03-34 11:05:00 Test Item Value Reference Range Interpretation Comments Lymphocytes # (test code = Lymphocytes 1.6 1.0-5.5 #) [facility] NortheastEytirkrREDWEBFPFQ0533-02-91 11:05:00 Test Item Value Reference Range Interpretation Comments Neutrophils # (test code = Neutrophils 3.9 1.5-8.1 #) [facility] NortheastVuiitzoDYZQLYEAAG3804-72-99 11:05:00 Test Item Value Reference Range Interpretation Comments Eosinophils # (test code 0.6 See_Comment [A utomated message] The = Eosinophils #) system whic h generated this result tra nsmitted reference range : <=0.5. The reference r andreia was not used to int erpret this result as normal/abnormal . [facility] NortheastTpuwfekIGIEPHGIJT9224-17-07 11:05:00 Test Item Value Reference Range Interpretation Comments Eosinophils (test code = 8.6 See_Comment [A utomated message] The Eosinophils) system which ge nerated this result tra nsmitted reference range : <=4.0. The reference r andreia was not used to int erpret this result as normal/abnormal . [facility] NortheastRcsjhcfOMUBVGKMZR8948-73-16 11:05:00 Test Item Value Reference Range Interpretation Comments Monocytes (test code = Monocytes) 10.5 2.0-12.0 [facility] NortheastWzxgpenZMRQZYEXZX3272-40-57 11:05:00 Test Item Value Reference Range Interpretation Comments Basophils # (test code 0.1 See_Comment [Aut omated message] The = Basophils #) system which generated this result tra nsmitted reference range : <=0.2. The reference r andreia was not used to int erpret this result as normal/abnormal . [facility] NortheastYmkohdvZZSUQOJIFW5207-33-69 11:05:00 Test Item Value Reference Range Interpretation Comments Lymphocytes (test code = Lymphocytes) 23.7 20.0-40.0 [facility] NortheastVghquvoHHWGPIRZYN8836-86-88 11:05:00 Test Item Value Reference Range Interpretation Comments Segs (test code = Segs) 56.4 45.0-75.0 [facility] NortheastDrreeysRBTSIANUMD1769-58-10 11:05:00 Test Item Value Reference Range Interpretation Comments Basophils (test code = 0.8 See_Comment [Aut omated message] The Basophils) system which ge nerated this result tra nsmitted reference range : <=1.0. The reference r andreia was not used to int erpret this result as normal/abnormal . [facility]2019-06-13 11:05:00 Test Item Value Reference Range Interpretation Comments Troponin-I (test code 1.15 See_Comment [Auto mated message] The = Troponin-I) system which g enerated this result transmit dewayne reference range : <=0.40. The reference r andreia was not used to interpr et this result as dallin l/abnormal. [facility]WghkfnzPHMBTMIBRE1142-27-51 11:05:00 Test Item Value Reference Range Interpretation Comments Monocytes # (test code 0.7 See_Comment [Aut omated message] The = Monocytes #) system which generated this result tra nsmitted reference range : <=0.8. The reference r andreia was not used to int erpret this result as normal/abnormal . [facility] NortheastIxqkqglXZAISXSKGK8912-03-65 11:05:00 Test Item Value Reference Range Interpretation Comments Lymphocytes # (test code = Lymphocytes 1.6 1.0-5.5 #) [facility] NortheastQluntubTAAFOFBUCI4928-79-45 11:05:00 Test Item Value Reference Range Interpretation Comments Neutrophils # (test code = Neutrophils 3.9 1.5-8.1 #) [facility] NortheastXgzxzceMSGHQQNKGH3320-16-31 11:05:00 Test Item Value Reference Range Interpretation Comments Eosinophils # (test code 0.6 See_Comment [A utomated message] The = Eosinophils #) system [facility] h generated this result tra nsmitted reference range : <=0.5. The reference r andreia was not used to int erpret this result as normal/abnormal . [facility] NortheastUikldnkRIWTIPAYUS0820-16-59 11:05:00 Test Item Value Reference Range Interpretation Comments Eosinophils (test code = 8.6 See_Comment [A utomated message] The Eosinophils) system which ge nerated this result tra nsmitted reference range : <=4.0. The reference r andreia was not used to int erpret this result as normal/abnormal . [facility] NortheastGebdcqyJWUIJNIJZA3577-16-87 11:05:00 Test Item Value Reference Range Interpretation Comments Monocytes (test code = Monocytes) 10.5 2.0-12.0 [facility] HospitalPgvefvdRSOEHIFQBR3132-75-12 11:05:00 Test Item Value Reference Range Interpretation Comments Basophils # (test code 0.1 See_Comment [Aut omated message] The = Basophils #) system which generated this result tra nsmitted reference range : <=0.2. The reference r andreia was not used to int erpret this result as normal/abnormal . [facility] HospitalDtwlvtzQTRGEMNZRF0443-35-19 11:05:00 Test Item Value Reference Range Interpretation Comments Lymphocytes (test code = Lymphocytes) 23.7 20.0-40.0 [facility] HospitalUihojipIZSGRCDDSU4881-19-48 11:05:00 Test Item Value Reference Range Interpretation Comments Segs (test code = Segs) 56.4 45.0-75.0 [facility] HospitalVplguilFQFBAPIRLD4867-05-36 11:05:00 Test Item Value Reference Range Interpretation Comments Basophils (test code = 0.8 See_Comment [Aut omated message] The Basophils) system which ge nerated this result tra nsmitted reference range : <=1.0. The reference r andreia was not used to int erpret this result as normal/abnormal . [facility] WFIVBPV3148-26-17 11:05:00 Test Item Value Reference Range Interpretation Comments Troponin-I (test code 1.15 See_Comment [Auto mated message] The = Troponin-I) system which g enerated this result transmit dewayne reference range : <=0.40. The reference r andreia was not used to interpr et this result as dallin l/abnormal. [facility] NortheastMvljskaUWYUWBTHJY8632-11-42 11:05:00 Test Item Value Reference Range Interpretation Comments Monocytes # (test code 0.7 See_Comment [Aut omated message] The = Monocytes #) system which generated this result tra nsmitted reference range : <=0.8. The reference r andreia was not used to int erpret this result as normal/abnormal . [facility] NortheastRkafkusIRPEYQHKDV9639-40-59 11:05:00 Test Item Value Reference Range Interpretation Comments Lymphocytes # (test code = Lymphocytes 1.6 1.0-5.5 #) [facility] HospitalRwtvqpsALKHTQEVJR3121-18-28 11:05:00 Test Item Value Reference Range Interpretation Comments Neutrophils # (test code = Neutrophils 3.9 1.5-8.1 #) [facility] NortheastNbkrvpjNUJHYQTEZW3231-58-91 11:05:00 Test Item Value Reference Range Interpretation Comments Eosinophils # (test code 0.6 See_Comment [A utomated message] The = Eosinophils #) system whic h generated this result tra nsmitted reference range : <=0.5. The reference r andreia was not used to int erpret this result as normal/abnormal . [facility] NortheastWsffqftAJELJYETWE0970-72-51 11:05:00 Test Item Value Reference Range Interpretation Comments Eosinophils (test code = 8.6 See_Comment [A utomated message] The Eosinophils) system which ge nerated this result tra nsmitted reference range : <=4.0. The reference r andreia was not used to int erpret this result as normal/abnormal . [facility] NortheastYnuclefQBLCLHVAFO2200-94-35 11:05:00 Test Item Value Reference Range Interpretation Comments Monocytes (test code = Monocytes) 10.5 2.0-12.0 [facility] NortheastRuooulsDBALHPOVAX3813-48-14 11:05:00 Test Item Value Reference Range Interpretation Comments Basophils # (test code 0.1 See_Comment [Aut omated message] The = Basophils #) system which generated this result tra nsmitted reference range : <=0.2. The reference r andreia was not used to int erpret this result as normal/abnormal . [facility] NortheastBpxvvkoQWPKMYUDVN1534-97-77 11:05:00 Test Item Value Reference Range Interpretation Comments Lymphocytes (test code = Lymphocytes) 23.7 20.0-40.0 [facility] NortheastVljaybtAWVLJITACI6609-27-03 11:05:00 Test Item Value Reference Range Interpretation Comments Segs (test code = Segs) 56.4 45.0-75.0 [facility] NortheastEhikussNUKFJWXRCF7535-21-94 11:05:00 Test Item Value Reference Range Interpretation Comments Basophils (test code = 0.8 See_Comment [Aut omated message] The Basophils) system which ge nerated this result tra nsmitted reference range : <=1.0. The reference r andreia was not used to int erpret this result as normal/abnormal . [facility] MVCNZWN0935-54-21 11:05:00 Test Item Value Reference Range Interpretation Comments Troponin-I (test code 1.15 See_Comment [Auto mated message] The = Troponin-I) system which g enerated this result transmit dewayne reference range : <=0.40. The reference r andreia was not used to interpr et this result as dallin l/abnormal. [facility] NortheastHsghnaaXLBKVNSAQL6395-59-69 11:05:00 Test Item Value Reference Range Interpretation Comments Monocytes # (test code 0.7 See_Comment [Aut omated message] The = Monocytes #) system which generated this result tra nsmitted reference range : <=0.8. The reference r andreia was not used to int erpret this result as normal/abnormal . [facility] NortheastSpqqiuxXPELIVSNFF1899-57-00 11:05:00 Test Item Value Reference Range Interpretation Comments Lymphocytes # (test code = Lymphocytes 1.6 1.0-5.5 #) [facility] NortheastGcegoxbHBWOKCSUEE7273-53-30 11:05:00 Test Item Value Reference Range Interpretation Comments Neutrophils # (test code = Neutrophils 3.9 1.5-8.1 #) [facility] NortheastVejaqicWGOZLMUILY6069-93-97 11:05:00 Test Item Value Reference Range Interpretation Comments Eosinophils # (test code 0.6 See_Comment [A utomated message] The = Eosinophils #) system wh h generated this result tra nsmitted reference range : <=0.5. The reference r andreia was not used to int erpret this result as normal/abnormal . [facility] NortheastPueoxksOWSQOHAAGX9491-15-49 11:05:00 Test Item Value Reference Range Interpretation Comments Eosinophils (test code = 8.6 See_Comment [A utomated message] The Eosinophils) system which ge nerated this result tra nsmitted reference range : <=4.0. The reference r andreia was not used to int erpret this result as normal/abnormal . [facility]HeqhqlnGXWVPWTKLN9999-32-06 11:05:00 Test Item Value Reference Range Interpretation Comments Monocytes (test code = Monocytes) 10.5 2.0-12.0 [facility]DbzutjsRXUJEWWHVZ7567-71-63 11:05:00 Test Item Value Reference Range Interpretation Comments Basophils # (test code 0.1 See_Comment [Aut omated message] The = Basophils #) system which generated this result tra nsmitted reference range : <=0.2. The reference r andreia was not used to int erpret this result as normal/abnormal . [facility]WqldqdwPHKMWHKMQK8044-25-86 11:05:00 Test Item Value Reference Range Interpretation Comments Lymphocytes (test code = Lymphocytes) 23.7 20.0-40.0 [facility]NbhxjnyWBIIZVGPRN9689-21-37 11:05:00 Test Item Value Reference Range Interpretation Comments Segs (test code = Segs) 56.4 45.0-75.0 [facility] NortheastVrtmsvkPPQSMRTKJG5970-48-29 11:05:00 Test Item Value Reference Range Interpretation Comments Basophils (test code = 0.8 See_Comment [Aut omated message] The Basophils) system which ge nerated this result tra nsmitted reference range : <=1.0. The reference r andreia was not used to int erpret this result as normal/abnormal . [facility] SERVICESQVUEBZR6114-06-81 11:05:00 Test Item Value Reference Range Interpretation Comments Troponin-I (test code 1.15 See_Comment [Auto mated message] The = Troponin-I) system which g enerated this result transmit dewayne reference range : <=0.40. The reference r andreia was not used to interpr et this result as dallin l/abnormal. [facility] NortheastSxqfekgYETBAGSXOU8267-30-71 11:05:00 Test Item Value Reference Range Interpretation Comments Monocytes # (test code 0.7 See_Comment [Aut omated message] The = Monocytes #) system which generated this result tra nsmitted reference range : <=0.8. The reference r andreia was not used to int erpret this result as normal/abnormal . [facility]EhwgfxkSGMXIGDPJR2266-99-15 11:05:00 Test Item Value Reference Range Interpretation Comments Lymphocytes # (test code = Lymphocytes 1.6 1.0-5.5 #) [facility]CjbjzvyJYPOPMPLAW3827-68-59 11:05:00 Test Item Value Reference Range Interpretation Comments Neutrophils # (test code = Neutrophils 3.9 1.5-8.1 #) [facility] NortheastAtsumltCEHBNQYAZF9503-31-51 11:05:00 Test Item Value Reference Range Interpretation Comments Eosinophils # (test code 0.6 See_Comment [A utomated message] The = Eosinophils #) system whic h generated this result tra nsmitted reference range : <=0.5. The reference r andreia was not used to int erpret this result as normal/abnormal . [facility] NortheastYurafaxUNOIHRKQAH1887-88-48 11:05:00 Test Item Value Reference Range Interpretation Comments Eosinophils (test code = 8.6 See_Comment [A utomated message] The Eosinophils) system which ge nerated this result tra nsmitted reference range : <=4.0. The reference r andreia was not used to int erpret this result as normal/abnormal . [facility] NortheastRglaewmZOVCSITFTE2341-29-94 11:05:00 Test Item Value Reference Range Interpretation Comments Monocytes (test code = Monocytes) 10.5 2.0-12.0 [facility] NortheastMadbwlxNPWWDPBPMX4578-43-64 11:05:00 Test Item Value Reference Range Interpretation Comments Basophils # (test code 0.1 See_Comment [Aut omated message] The = Basophils #) system which generated this result tra nsmitted reference range : <=0.2. The reference r andreia was not used to int erpret this result as normal/abnormal . [facility] NortheastXahdirkUADDLTDYQN9106-38-43 11:05:00 Test Item Value Reference Range Interpretation Comments Lymphocytes (test code = Lymphocytes) 23.7 20.0-40.0 [facility] NortheastVzpjcbdVVSOCUKMEE9759-89-94 11:05:00 Test Item Value Reference Range Interpretation Comments Segs (test code = Segs) 56.4 45.0-75.0 [facility] NortheastGjistajLRWNNHEIAG6616-08-94 11:05:00 Test Item Value Reference Range Interpretation Comments Basophils (test code = 0.8 See_Comment [Aut omated message] The Basophils) system which ge nerated this result tra nsmitted reference range : <=1.0. The reference r andreia was not used to int erpret this result as normal/abnormal . [facility] TPHRPNQ3780-93-41 11:05:00 Test Item Value Reference Range Interpretation Comments Troponin-I (test code 1.15 See_Comment [Auto mated message] The = Troponin-I) system which g enerated this result transmit dewayne reference range : <=0.40. The reference r andreia was not used to interpr et this result as dallin l/abnormal. [facility] NortheastBxckuqhUBQWCWCSSS4407-23-60 11:05:00 Test Item Value Reference Range Interpretation Comments Monocytes # (test code 0.7 See_Comment [Aut omated message] The = Monocytes #) system which generated this result tra nsmitted reference range : <=0.8. The reference r andreia was not used to int erpret this result as normal/abnormal . [facility] NortheastEisupwrJQPEJYKPMU4992-72-93 11:05:00 Test Item Value Reference Range Interpretation Comments Lymphocytes # (test code = Lymphocytes 1.6 1.0-5.5 #) [facility] NortheastHrzuoleRYDZKEQJPK1026-92-24 11:05:00 Test Item Value Reference Range Interpretation Comments Neutrophils # (test code = Neutrophils 3.9 1.5-8.1 #) [facility] NortheastOrxivwlSWMSJRMDET4494-79-19 11:05:00 Test Item Value Reference Range Interpretation Comments Eosinophils # (test code 0.6 See_Comment [A utomated message] The = Eosinophils #) system whic h generated this result tra nsmitted reference range : <=0.5. The reference r andreia was not used to int erpret this result as normal/abnormal . [facility] NortheastYvurjhrODNRDLIIAH7628-68-50 11:05:00 Test Item Value Reference Range Interpretation Comments Eosinophils (test code = 8.6 See_Comment [A utomated message] The Eosinophils) system which ge nerated this result tra nsmitted reference range : <=4.0. The reference r andreia was not used to int erpret this result as normal/abnormal . [facility] NortheastXoedlqdKEZNUCQGFB6766-62-30 11:05:00 Test Item Value Reference Range Interpretation Comments Monocytes (test code = Monocytes) 10.5 2.0-12.0 [facility] NortheastNvhknmdEVQZGVBTQR9872-87-33 11:05:00 Test Item Value Reference Range Interpretation Comments Basophils # (test code 0.1 See_Comment [Aut omated message] The = Basophils #) system which generated this result tra nsmitted reference range : <=0.2. The reference r andreia was not used to int erpret this result as normal/abnormal . [facility] NortheastPmdxslxZGODYYLDGR2087-54-84 11:05:00 Test Item Value Reference Range Interpretation Comments Lymphocytes (test code = Lymphocytes) 23.7 20.0-40.0 [facility] NortheastXskpqdtPJVORPESQS2736-74-59 11:05:00 Test Item Value Reference Range Interpretation Comments Segs (test code = Segs) 56.4 45.0-75.0 [facility] NortheastJoujnbnIYXXOTKHBM5892-02-09 11:05:00 Test Item Value Reference Range Interpretation Comments Basophils (test code = 0.8 See_Comment [Aut omated message] The Basophils) system which ge nerated this result tra nsmitted reference range : <=1.0. The reference r andreia was not used to int erpret this result as normal/abnormal . [facility]2019-06-13 11:05:00 Test Item Value Reference Range Interpretation Comments Troponin-I (test code = Troponin-I) 1.15 <=0.40 [facility] NortheastEweddzeKZZHPRVEDT3448-07-30 11:05:00 Test Item Value Reference Range Interpretation Comments Monocytes # (test code = Monocytes #) 0.7 <=0.8 [facility] NortheastHjzziofLHGMWIBQZA3596-03-04 11:05:00 Test Item Value Reference Range Interpretation Comments Lymphocytes # (test code = Lymphocytes 1.6 1.0-5.5 #) [facility] NortheastBsyjnqeZOETBPWOAW4315-80-72 11:05:00 Test Item Value Reference Range Interpretation Comments Neutrophils # (test code = Neutrophils 3.9 1.5-8.1 #) [facility] NortheastTtvipvdMQVQDLZJJP0185-59-76 11:05:00 Test Item Value Reference Range Interpretation Comments Eosinophils # (test code = Eosinophils 0.6 <=0.5 #) [facility] NortheastSmxjvfxYPMWKCNXHE2478-12-52 11:05:00 Test Item Value Reference Range Interpretation Comments Eosinophils (test code = Eosinophils) 8.6 <=4.0 [facility] NortheastHelwlarQLMJGGKBAM8384-37-73 11:05:00 Test Item Value Reference Range Interpretation Comments Monocytes (test code = Monocytes) 10.5 2.0-12.0 [facility] NortheastIpzpmyaJTWWCRKUDZ3334-17-68 11:05:00 Test Item Value Reference Range Interpretation Comments Basophils # (test code = Basophils #) 0.1 <=0.2 [facility] NortheastYhmfbeuPBXIKDJNUM3658-63-61 11:05:00 Test Item Value Reference Range Interpretation Comments Lymphocytes (test code = Lymphocytes) 23.7 20.0-40.0 [facility] NortheastLainzojEJFKFAEHBJ2938-73-90 11:05:00 Test Item Value Reference Range Interpretation Comments Segs (test code = Segs) 56.4 45.0-75.0 [facility] NortheastUewxailWXJFQXSLNV5165-30-49 11:05:00 Test Item Value Reference Range Interpretation Comments Basophils (test code = Basophils) 0.8 <=1.0 [facility] FMKDGBQ0893-00-81 11:05:00 Test Item Value Reference Range Interpretation Comments Troponin-I (test code 1.15 See_Comment [Auto mated message] The = Troponin-I) system which g enerated this result transmit dewayne reference range : <=0.40. The reference r andreia was not used to interpr et this result as dallin l/abnormal. [facility] NortheastQahbbyaOMZYKVBMWU7893-50-41 11:05:00 Test Item Value Reference Range Interpretation Comments Monocytes # (test code 0.7 See_Comment [Aut omated message] The = Monocytes #) system which generated this result tra nsmitted reference range : <=0.8. The reference r andreia was not used to int erpret this result as normal/abnormal . [facility] NortheastJobgrwfVZDMKOSOHQ2539-65-51 11:05:00 Test Item Value Reference Range Interpretation Comments Lymphocytes # (test code = Lymphocytes 1.6 1.0-5.5 #) [facility] NortheastIwcasjmWSIBVQQQEZ5163-49-52 11:05:00 Test Item Value Reference Range Interpretation Comments Neutrophils # (test code = Neutrophils 3.9 1.5-8.1 #) [facility] NortheastGqcaervCFXSQRZGDL1411-38-32 11:05:00 Test Item Value Reference Range Interpretation Comments Eosinophils # (test code 0.6 See_Comment [A utomated message] The = Eosinophils #) system whic h generated this result tra nsmitted reference range : <=0.5. The reference r andreia was not used to int erpret this result as normal/abnormal . [facility] NortheastFwdodggKURCCKLCYK7633-83-08 11:05:00 Test Item Value Reference Range Interpretation Comments Eosinophils (test code = 8.6 See_Comment [A utomated message] The Eosinophils) system which ge nerated this result tra nsmitted reference range : <=4.0. The reference r andreia was not used to int erpret this result as normal/abnormal . [facility] NortheastImugpqmDCRPSFNBAF0495-43-33 11:05:00 Test Item Value Reference Range Interpretation Comments Monocytes (test code = Monocytes) 10.5 2.0-12.0 [facility] NortheastGinnyrcHEHTOEOEGM8156-60-67 11:05:00 Test Item Value Reference Range Interpretation Comments Basophils # (test code 0.1 See_Comment [Aut omated message] The = Basophils #) system which generated this result tra nsmitted reference range : <=0.2. The reference r andreia was not used to int erpret this result as normal/abnormal . [facility] NortheastQwkgflrOCGCONMWYY2279-97-06 11:05:00 Test Item Value Reference Range Interpretation Comments Lymphocytes (test code = Lymphocytes) 23.7 20.0-40.0 [facility] NortheastGodzhjlEAKLLIBNOC5271-75-22 11:05:00 Test Item Value Reference Range Interpretation Comments Segs (test code = Segs) 56.4 45.0-75.0 [facility] NortheastBqhzbdiLWSMVZOQDH5409-91-13 11:05:00 Test Item Value Reference Range Interpretation Comments Basophils (test code = 0.8 See_Comment [Aut omated message] The Basophils) system which ge nerated this result tra nsmitted reference range : <=1.0. The reference r andreia was not used to int erpret this result as normal/abnormal . [facility] LQRHCAI3351-80-85 11:05:00 Test Item Value Reference Range Interpretation Comments Troponin-I (test code 1.15 See_Comment [Auto mated message] The = Troponin-I) system which g enerated this result transmit dewayne reference range : <=0.40. The reference r andreia was not used to interpr et this result as dallin l/abnormal. [facility] NortheastDcyqlgjSSKOJLWDMC3140-87-90 11:05:00 Test Item Value Reference Range Interpretation Comments Monocytes # (test code 0.7 See_Comment [Aut omated message] The = Monocytes #) system which generated this result tra nsmitted reference range : <=0.8. The reference r andreia was not used to int erpret this result as normal/abnormal . [facility] NortheastFbtdobeQUUGPTKJST5143-92-82 11:05:00 Test Item Value Reference Range Interpretation Comments Lymphocytes # (test code = Lymphocytes 1.6 1.0-5.5 #) [facility] NortheastKukssfcFCSKFAHOTE1280-01-05 11:05:00 Test Item Value Reference Range Interpretation Comments Neutrophils # (test code = Neutrophils 3.9 1.5-8.1 #) [facility] NortheastRhiuajlRQQFAOFEXW0547-88-46 11:05:00 Test Item Value Reference Range Interpretation Comments Eosinophils # (test code 0.6 See_Comment [A utomated message] The = Eosinophils #) system whic h generated this result tra nsmitted reference range : <=0.5. The reference r andreia was not used to int erpret this result as normal/abnormal . [facility] NortheastDakenljSWRDVGYICI5069-06-28 11:05:00 Test Item Value Reference Range Interpretation Comments Eosinophils (test code = 8.6 See_Comment [A utomated message] The Eosinophils) system which ge nerated this result tra nsmitted reference range : <=4.0. The reference r andreia was not used to int erpret this result as normal/abnormal . [facility] NortheastVbvvzelKXTTHNGLFB2897-88-74 11:05:00 Test Item Value Reference Range Interpretation Comments Monocytes (test code = Monocytes) 10.5 2.0-12.0 [facility] NortheastYfmbzlxJFIYOHVGGN5021-58-01 11:05:00 Test Item Value Reference Range Interpretation Comments Basophils # (test code 0.1 See_Comment [Aut omated message] The = Basophils #) system which generated this result tra nsmitted reference range : <=0.2. The reference r andreia was not used to int erpret this result as normal/abnormal . [facility] NortheastHwqirqiCXZCHTWJLD0014-18-80 11:05:00 Test Item Value Reference Range Interpretation Comments Lymphocytes (test code = Lymphocytes) 23.7 20.0-40.0 [facility] NortheastQwmlucvIZZYHIHTVP3808-23-14 11:05:00 Test Item Value Reference Range Interpretation Comments Segs (test code = Segs) 56.4 45.0-75.0 [facility] NortheastJnihsyuSKYVIIMBWS7298-44-77 11:05:00 Test Item Value Reference Range Interpretation Comments Basophils (test code = 0.8 See_Comment [Aut omated message] The Basophils) system which ge nerated this result tra nsmitted reference range : <=1.0. The reference r andreia was not used to int erpret this result as normal/abnormal . [facility] RRHIZKW4691-56-34 11:05:00 Test Item Value Reference Range Interpretation Comments Troponin-I (test code 1.15 See_Comment [Auto mated message] The = Troponin-I) system which g enerated this result transmit dewayne reference range : <=0.40. The reference r andreia was not used to interpr et this result as dallin l/abnormal. [facility] NortheastIoitswjFPYXXPSGVF5343-54-45 11:05:00 Test Item Value Reference Range Interpretation Comments Monocytes # (test code 0.7 See_Comment [Aut omated message] The = Monocytes #) system which generated this result tra nsmitted reference range : <=0.8. The reference r andreia was not used to int erpret this result as normal/abnormal . [facility] NortheastMueertvWHVOUSLFEX8335-59-05 11:05:00 Test Item Value Reference Range Interpretation Comments Lymphocytes # (test code = Lymphocytes 1.6 1.0-5.5 #) [facility] NortheastSifbjfkBGVOGSVXOL8841-21-62 11:05:00 Test Item Value Reference Range Interpretation Comments Neutrophils # (test code = Neutrophils 3.9 1.5-8.1 #) [facility] NortheastRqkysgmROOFLERCTA8022-60-75 11:05:00 Test Item Value Reference Range Interpretation Comments Eosinophils # (test code 0.6 See_Comment [A utomated message] The = Eosinophils #) system [facility] h generated this result tra nsmitted reference range : <=0.5. The reference r andreia was not used to int erpret this result as normal/abnormal . [facility] NortheastYzkwynbDUUJFCNBFV0770-04-53 11:05:00 Test Item Value Reference Range Interpretation Comments Eosinophils (test code = 8.6 See_Comment [A utomated message] The Eosinophils) system which ge nerated this result tra nsmitted reference range : <=4.0. The reference r andreia was not used to int erpret this result as normal/abnormal . [facility] NortheastQyfbyxqHOYSZHWLAH7513-52-48 11:05:00 Test Item Value Reference Range Interpretation Comments Monocytes (test code = Monocytes) 10.5 2.0-12.0 [facility] NortheastQrjlasiAYTBANBPUJ3019-73-64 11:05:00 Test Item Value Reference Range Interpretation Comments Basophils # (test code 0.1 See_Comment [Aut omated message] The = Basophils #) system which generated this result tra nsmitted reference range : <=0.2. The reference r andreia was not used to int erpret this result as normal/abnormal . [facility] NortheastVlqhbjiDMGWKMSVQZ0875-12-52 11:05:00 Test Item Value Reference Range Interpretation Comments Lymphocytes (test code = Lymphocytes) 23.7 20.0-40.0 [facility] NortheastUybnsvcOTOILSPXSZ2250-89-85 11:05:00 Test Item Value Reference Range Interpretation Comments Segs (test code = Segs) 56.4 45.0-75.0 [facility] NortheastWtixshcKUSONTFEUY5116-82-95 11:05:00 Test Item Value Reference Range Interpretation Comments Basophils (test code = 0.8 See_Comment [Aut omated message] The Basophils) system which ge nerated this result tra nsmitted reference range : <=1.0. The reference r andreia was not used to int erpret this result as normal/abnormal . [facility] LHFTMCS0619-91-94 11:05:00 Test Item Value Reference Range Interpretation Comments Troponin-I (test code 1.15 See_Comment [Auto mated message] The = Troponin-I) system which g enerated this result transmit dewayne reference range : <=0.40. The reference r andreia was not used to interpr et this result as dallin l/abnormal. [facility] NortheastQsvjpyfBPZOVOHFUU8019-26-85 11:05:00 Test Item Value Reference Range Interpretation Comments Monocytes # (test code 0.7 See_Comment [Aut omated message] The = Monocytes #) system which generated this result tra nsmitted reference range : <=0.8. The reference r andreia was not used to int erpret this result as normal/abnormal . [facility] NortheastPuhxutnHIMNMESHWQ0647-28-56 11:05:00 Test Item Value Reference Range Interpretation Comments Lymphocytes # (test code = Lymphocytes 1.6 1.0-5.5 #) [facility] NortheastKocucqqGTFEWDDZRR4032-79-34 11:05:00 Test Item Value Reference Range Interpretation Comments Neutrophils # (test code = Neutrophils 3.9 1.5-8.1 #) [facility] NortheastCggghpfVWUGVIEWCL5188-94-84 11:05:00 Test Item Value Reference Range Interpretation Comments Eosinophils # (test code 0.6 See_Comment [A utomated message] The = Eosinophils #) system whic h generated this result tra nsmitted reference range : <=0.5. The reference r andreia was not used to int erpret this result as normal/abnormal . [facility] NortheastYqysbwkJQNFWKNUDN1836-17-40 11:05:00 Test Item Value Reference Range Interpretation Comments Eosinophils (test code = 8.6 See_Comment [A utomated message] The Eosinophils) system which ge nerated this result tra nsmitted reference range : <=4.0. The reference r andreia was not used to int erpret this result as normal/abnormal . [facility] NortheastJymiguiJAQVGYEHIR9543-90-67 11:05:00 Test Item Value Reference Range Interpretation Comments Monocytes (test code = Monocytes) 10.5 2.0-12.0 [facility] NortheastAgdowwnUFQQYDBXAQ3699-20-78 11:05:00 Test Item Value Reference Range Interpretation Comments Basophils # (test code 0.1 See_Comment [Aut omated message] The = Basophils #) system which generated this result tra nsmitted reference range : <=0.2. The reference r andreia was not used to int erpret this result as normal/abnormal . [facility] NortheastUrbydgnXFKREXHIOC1214-50-37 11:05:00 Test Item Value Reference Range Interpretation Comments Lymphocytes (test code = Lymphocytes) 23.7 20.0-40.0 [facility] NortheastOgnigheSQQVFUJQZD4754-14-68 11:05:00 Test Item Value Reference Range Interpretation Comments Segs (test code = Segs) 56.4 45.0-75.0 [facility] NortheastPsohtdeVINQMASILG4059-44-32 11:05:00 Test Item Value Reference Range Interpretation Comments Basophils (test code = 0.8 See_Comment [Aut omated message] The Basophils) system which ge nerated this result tra nsmitted reference range : <=1.0. The reference r andreia was not used to int erpret this result as normal/abnormal . [facility]2019-06-13 11:05:00 Test Item Value Reference Range Interpretation Comments Troponin-I (test code 1.15 See_Comment [Auto mated message] The = Troponin-I) system which g enerated this result transmit dewayne reference range : <=0.40. The reference r andreia was not used to interpr et this result as dallin l/abnormal. [facility] NortheastYvhtwsbPWDROFYQUD4757-23-82 11:05:00 Test Item Value Reference Range Interpretation Comments Monocytes # (test code 0.7 See_Comment [Aut omated message] The = Monocytes #) system which generated this result tra nsmitted reference range : <=0.8. The reference r andreia was not used to int erpret this result as normal/abnormal . [facility] NortheastEnoucgoKHSTTCOPDC4994-04-06 11:05:00 Test Item Value Reference Range Interpretation Comments Lymphocytes # (test code = Lymphocytes 1.6 1.0-5.5 #) [facility] NortheastOvexxnpBITHCVVAAX5073-68-38 11:05:00 Test Item Value Reference Range Interpretation Comments Neutrophils # (test code = Neutrophils 3.9 1.5-8.1 #) [facility] NortheastDqnlhjxOXPWKLXNYJ2643-94-37 11:05:00 Test Item Value Reference Range Interpretation Comments Eosinophils # (test code 0.6 See_Comment [A utomated message] The = Eosinophils #) system whic h generated this result tra nsmitted reference range : <=0.5. The reference r andreia was not used to int erpret this result as normal/abnormal . [facility] NortheastRjanxujSKCXWGYTEG0224-30-28 11:05:00 Test Item Value Reference Range Interpretation Comments Eosinophils (test code = 8.6 See_Comment [A utomated message] The Eosinophils) system which ge nerated this result tra nsmitted reference range : <=4.0. The reference r andreia was not used to int erpret this result as normal/abnormal . [facility] NortheastHsnbzfmGCCNUVJJWF8977-82-43 11:05:00 Test Item Value Reference Range Interpretation Comments Monocytes (test code = Monocytes) 10.5 2.0-12.0 [facility] NortheastLydqemsCJKKNAPJBV2988-41-03 11:05:00 Test Item Value Reference Range Interpretation Comments Basophils # (test code 0.1 See_Comment [Aut omated message] The = Basophils #) system which generated this result tra nsmitted reference range : <=0.2. The reference r andreia was not used to int erpret this result as normal/abnormal . [facility] NortheastEcovhzxZLVBXOERZT8297-37-28 11:05:00 Test Item Value Reference Range Interpretation Comments Lymphocytes (test code = Lymphocytes) 23.7 20.0-40.0 [facility] NortheastZcuqqucFHSMGIXHQH7634-95-48 11:05:00 Test Item Value Reference Range Interpretation Comments Segs (test code = Segs) 56.4 45.0-75.0 [facility] NortheastEvkfemfEKMDOMHVBZ3508-78-98 11:05:00 Test Item Value Reference Range Interpretation Comments Basophils (test code = 0.8 See_Comment [Aut omated message] The Basophils) system which ge nerated this result tra nsmitted reference range : <=1.0. The reference r andreia was not used to int erpret this result as normal/abnormal . [facility] SWHCFZC6935[facility] 11:05:00 Test Item Value Reference Range Interpretation Comments Troponin-I (test code 1.15 See_Comment [Auto mated message] The = Troponin-I) system which g enerated this result transmit dewayne reference range : <=0.40. The reference r andreia was not used to interpr et this result as dallin l/abnormal. [facility]XyxgmmaZCUGUTUWFS6675-34-15 11:05:00 Test Item Value Reference Range Interpretation Comments Monocytes # (test code 0.7 See_Comment [Aut omated message] The = Monocytes #) system which generated this result tra nsmitted reference range : <=0.8. The reference r andreia was not used to int erpret this result as normal/abnormal . [facility] NortheastKiqlormUOGXQLXIGE6337-78-17 11:05:00 Test Item Value Reference Range Interpretation Comments Lymphocytes # (test code = Lymphocytes 1.6 1.0-5.5 #) [facility]TqbenxvOTDMHLYFLG1638-15-76 11:05:00 Test Item Value Reference Range Interpretation Comments Neutrophils # (test code = Neutrophils 3.9 1.5-8.1 #) [facility] NortheastOmxfdiwUWRKBGAVOX5697-17-20 11:05:00 Test Item Value Reference Range Interpretation Comments Eosinophils # (test code 0.6 See_Comment [A utomated message] The = Eosinophils #) system whic h generated this result tra nsmitted reference range : <=0.5. The reference r andreia was not used to int erpret this result as normal/abnormal . [facility] NortheastWjgandnIHOKAEPEGO9395-75-75 11:05:00 Test Item Value Reference Range Interpretation Comments Eosinophils (test code = 8.6 See_Comment [A utomated message] The Eosinophils) system which ge nerated this result tra nsmitted reference range : <=4.0. The reference r andreia was not used to int erpret this result as normal/abnormal . [facility]XjwbhdgBYOXXMJZDG5819-13-93 11:05:00 Test Item Value Reference Range Interpretation Comments Monocytes (test code = Monocytes) 10.5 2.0-12.0 [facility] NortheastRdjfatiHMPLUAADOD0455-60-12 11:05:00 Test Item Value Reference Range Interpretation Comments Basophils # (test code 0.1 See_Comment [Aut omated message] The = Basophils #) system which generated this result tra nsmitted reference range : <=0.2. The reference r andreia was not used to int erpret this result as normal/abnormal . [facility] NortheastEfusixcERBTIFVTUK5344-71-23 11:05:00 Test Item Value Reference Range Interpretation Comments Lymphocytes (test code = Lymphocytes) 23.7 20.0-40.0 [facility] NortheastIfeqiucNWMDVPMSHW8024-98-34 11:05:00 Test Item Value Reference Range Interpretation Comments Segs (test code = Segs) 56.4 45.0-75.0 [facility] NortheastPmdckgsTUXUXBYDJC7382-43-37 11:05:00 Test Item Value Reference Range Interpretation Comments Basophils (test code = 0.8 See_Comment [Aut omated message] The Basophils) system which ge nerated this result tra nsmitted reference range : <=1.0. The reference r nadreia was not used to int erpret this result as normal/abnormal . [facility] UEQFOTX7219-96-83 11:05:00 Test Item Value Reference Range Interpretation Comments Troponin-I (test code 1.15 See_Comment [Auto mated message] The = Troponin-I) system which g enerated this result transmit dewayne reference range : <=0.40. The reference r andreia was not used to interpr et this result as dallin l/abnormal. [facility] NortheastRzewwadRFLINRMYYD8599-01-02 11:05:00 Test Item Value Reference Range Interpretation Comments Monocytes # (test code 0.7 See_Comment [Aut omated message] The = Monocytes #) system which generated this result tra nsmitted reference range : <=0.8. The reference r andreia was not used to int erpret this result as normal/abnormal . [facility] NortheastYifrwkmFDDHPSNXUW6206-64-75 11:05:00 Test Item Value Reference Range Interpretation Comments Lymphocytes # (test code = Lymphocytes 1.6 1.0-5.5 #) [facility] NortheastItqpsysNWQOFJJXXX3772-67-08 11:05:00 Test Item Value Reference Range Interpretation Comments Neutrophils # (test code = Neutrophils 3.9 1.5-8.1 #) [facility] NortheastHwkkzbnRVMQNLULDX8309-77-71 11:05:00 Test Item Value Reference Range Interpretation Comments Eosinophils # (test code 0.6 See_Comment [A utomated message] The = Eosinophils #) system whic h generated this result tra nsmitted reference range : <=0.5. The reference r andreia was not used to int erpret this result as normal/abnormal . [facility]nraydpUFIWXMXQIH8772-20-80 11:05:00 Test Item Value Reference Range Interpretation Comments Eosinophils (test code = 8.6 See_Comment [A utomated message] The Eosinophils) system which ge nerated this result tra nsmitted reference range : <=4.0. The reference r andreia was not used to int erpret this result as normal/abnormal . [facility] HospitalNspoopvJBZFCDBUWM2852-41-27 11:05:00 Test Item Value Reference Range Interpretation Comments Monocytes (test code = Monocytes) 10.5 2.0-12.0 [facility] NortheastUvbsyckNQUSLBBWAN9331-60-46 11:05:00 Test Item Value Reference Range Interpretation Comments Basophils # (test code 0.1 See_Comment [Aut omated message] The = Basophils #) system which generated this result tra nsmitted reference range : <=0.2. The reference r andreia was not used to int erpret this result as normal/abnormal . [facility] HospitalMhaqiakPAXMCXIOZJ6738-53-63 11:05:00 Test Item Value Reference Range Interpretation Comments Lymphocytes (test code = Lymphocytes) 23.7 20.0-40.0 [facility] NortheastSezhxofNGRDYHBOUR9394-32-98 11:05:00 Test Item Value Reference Range Interpretation Comments Segs (test code = Segs) 56.4 45.0-75.0 [facility] NortheastSwphgrxGTEYCOGWNB6342-76-18 11:05:00 Test Item Value Reference Range Interpretation Comments Basophils (test code = 0.8 See_Comment [Aut omated message] The Basophils) system which ge nerated this result tra nsmitted reference range : <=1.0. The reference r andreia was not used to int erpret this result as normal/abnormal . [facility] CTFNTBI6043-81-09 11:05:00 Test Item Value Reference Range Interpretation Comments Troponin-I (test code 1.15 See_Comment [Auto mated message] The = Troponin-I) system which g enerated this result transmit dewayne reference range : <=0.40. The reference r andreia was not used to interpr et this result as dallin l/abnormal. [facility] NortheastCdlhvrgRQSAKNBIVS8859-26-19 11:05:00 Test Item Value Reference Range Interpretation Comments Monocytes # (test code 0.7 See_Comment [Aut omated message] The = Monocytes #) system which generated this result tra nsmitted reference range : <=0.8. The reference r andreia was not used to int erpret this result as normal/abnormal . [facility] NortheastVpyyeycZIGIYIBKWA4646-32-00 11:05:00 Test Item Value Reference Range Interpretation Comments Lymphocytes # (test code = Lymphocytes 1.6 1.0-5.5 #) [facility] NortheastIxxqgerHVGYFMFPDD7343-72-23 11:05:00 Test Item Value Reference Range Interpretation Comments Neutrophils # (test code = Neutrophils 3.9 1.5-8.1 #) [facility] NortheastOzhuibrIWCXOXTPEN7086-12-25 11:05:00 Test Item Value Reference Range Interpretation Comments Eosinophils # (test code 0.6 See_Comment [A utomated message] The = Eosinophils #) system whic h generated this result tra nsmitted reference range : <=0.5. The reference r andreia was not used to int erpret this result as normal/abnormal . [facility] NortheastFiryxenQCTCOAVCDK2688-07-37 11:05:00 Test Item Value Reference Range Interpretation Comments Eosinophils (test code = 8.6 See_Comment [A utomated message] The Eosinophils) system which ge nerated this result tra nsmitted reference range : <=4.0. The reference r andreia was not used to int erpret this result as normal/abnormal . [facility] NortheastTrarpbeHFUGTAZWKR1675-15-71 11:05:00 Test Item Value Reference Range Interpretation Comments Monocytes (test code = Monocytes) 10.5 2.0-12.0 [facility] NortheastBsauhfnNSLYSEMUEA5158-29-56 11:05:00 Test Item Value Reference Range Interpretation Comments Basophils # (test code 0.1 See_Comment [Aut omated message] The = Basophils #) system which generated this result tra nsmitted reference range : <=0.2. The reference r andreia was not used to int erpret this result as normal/abnormal . [facility] NortheastFycopztFTTGKWEOVZ7083-80-19 11:05:00 Test Item Value Reference Range Interpretation Comments Lymphocytes (test code = Lymphocytes) 23.7 20.0-40.0 [facility] NortheastBygaereASRVDBCWMK9461-34-85 11:05:00 Test Item Value Reference Range Interpretation Comments Segs (test code = Segs) 56.4 45.0-75.0 [facility] NortheastYgmkwqzTLSCVEWOII1678-18-99 11:05:00 Test Item Value Reference Range Interpretation Comments Basophils (test code = 0.8 See_Comment [Aut omated message] The Basophils) system which ge nerated this result tra nsmitted reference range : <=1.0. The reference r andreia was not used to int erpret this result as normal/abnormal . [facility] JQYMUQB7497-21-74 11:05:00 Test Item Value Reference Range Interpretation Comments Troponin-I (test code 1.15 See_Comment [Auto mated message] The = Troponin-I) system which g enerated this result transmit dewayne reference range : <=0.40. The reference r andreia was not used to interpr et this result as dallin l/abnormal. [facility] NortheastUwwpuglMTWHKUHDIL7087-24-36 11:05:00 Test Item Value Reference Range Interpretation Comments Monocytes # (test code 0.7 See_Comment [Aut omated message] The = Monocytes #) system which generated this result tra nsmitted reference range : <=0.8. The reference r andreia was not used to int erpret this result as normal/abnormal . [facility] NortheastTnpwpsoLMKHKFCPEH5951-67-26 11:05:00 Test Item Value Reference Range Interpretation Comments Lymphocytes # (test code = Lymphocytes 1.6 1.0-5.5 #) [facility] NortheastDcyxtpbKNZMKILYVW7722-15-36 11:05:00 Test Item Value Reference Range Interpretation Comments Neutrophils # (test code = Neutrophils 3.9 1.5-8.1 #) [facility] NortheastXhbpdjkOWMDCXLVLN8280-30-74 11:05:00 Test Item Value Reference Range Interpretation Comments Eosinophils # (test code 0.6 See_Comment [A utomated message] The = Eosinophils #) system whic h generated this result tra nsmitted reference range : <=0.5. The reference r andreia was not used to int erpret this result as normal/abnormal . [facility] NortheastVyvzwrcANHUQXDAPA6320-61-76 11:05:00 Test Item Value Reference Range Interpretation Comments Eosinophils (test code = 8.6 See_Comment [A utomated message] The Eosinophils) system which ge nerated this result tra nsmitted reference range : <=4.0. The reference r andreia was not used to int erpret this result as normal/abnormal . [facility] NortheastFmvhiqzPLGGVRJWJO5186-34-83 11:05:00 Test Item Value Reference Range Interpretation Comments Monocytes (test code = Monocytes) 10.5 2.0-12.0 [facility] NortheastUjcbkzoMJWJOJBWCU8928-29-48 11:05:00 Test Item Value Reference Range Interpretation Comments Basophils # (test code 0.1 See_Comment [Aut omated message] The = Basophils #) system which generated this result tra nsmitted reference range : <=0.2. The reference r andreia was not used to int erpret this result as normal/abnormal . [facility] NortheastMjnfzqgXIMTHAMKUE4366-68-19 11:05:00 Test Item Value Reference Range Interpretation Comments Lymphocytes (test code = Lymphocytes) 23.7 20.0-40.0 [facility] NortheastIvfqqggPHLXKEDSCQ4676-62-27 11:05:00 Test Item Value Reference Range Interpretation Comments Segs (test code = Segs) 56.4 45.0-75.0 [facility] NortheastXcfbopxRFAAWJDYKG3431-19-03 11:05:00 Test Item Value Reference Range Interpretation Comments Basophils (test code = 0.8 See_Comment [Aut omated message] The Basophils) system which ge nerated this result tra nsmitted reference range : <=1.0. The reference r andreia was not used to int erpret this result as normal/abnormal . [facility] YKCXRSV8640-58-71 11:05:00 Test Item Value Reference Range Interpretation Comments Troponin-I (test code 1.15 See_Comment [Auto mated message] The = Troponin-I) system which g enerated this result transmit dewayne reference range : <=0.40. The reference r andreia was not used to interpr et this result as dallin l/abnormal. [facility] NortheastKcwcgvoAOKWNASVPR7512-25-76 11:05:00 Test Item Value Reference Range Interpretation Comments Monocytes # (test code 0.7 See_Comment [Aut omated message] The = Monocytes #) system which generated this result tra nsmitted reference range : <=0.8. The reference r andreia was not used to int erpret this result as normal/abnormal . [facility] NortheastGjbuwqgEEXPTGGHKL7147-66-84 11:05:00 Test Item Value Reference Range Interpretation Comments Lymphocytes # (test code = Lymphocytes 1.6 1.0-5.5 #) [facility] NortheastKpwkwwdUDULFJGRVQ6022-14-65 11:05:00 Test Item Value Reference Range Interpretation Comments Neutrophils # (test code = Neutrophils 3.9 1.5-8.1 #) [facility] NortheastHhyeoygPLMWEDDALJ6976-80-23 11:05:00 Test Item Value Reference Range Interpretation Comments Eosinophils # (test code 0.6 See_Comment [A utomated message] The = Eosinophils #) system whic h generated this result tra nsmitted reference range : <=0.5. The reference r andreia was not used to int erpret this result as normal/abnormal . [facility] NortheastZogkumtHSMYQBJOGB4643-88-72 11:05:00 Test Item Value Reference Range Interpretation Comments Eosinophils (test code = 8.6 See_Comment [A utomated message] The Eosinophils) system which ge nerated this result tra nsmitted reference range : <=4.0. The reference r andreia was not used to int erpret this result as normal/abnormal . [facility] NortheastMqbbjcoXKKEUKPUFX4298-42-69 11:05:00 Test Item Value Reference Range Interpretation Comments Monocytes (test code = Monocytes) 10.5 2.0-12.0 [facility] NortheastLmjhwuzVRSFEQKZZG5572-86-63 11:05:00 Test Item Value Reference Range Interpretation Comments Basophils # (test code 0.1 See_Comment [Aut omated message] The = Basophils #) system which generated this result tra nsmitted reference range : <=0.2. The reference r andreia was not used to int erpret this result as normal/abnormal . [facility] NortheastMvqwddoSMRKXRSFCN4711-13-11 11:05:00 Test Item Value Reference Range Interpretation Comments Lymphocytes (test code = Lymphocytes) 23.7 20.0-40.0 [facility] NortheastDxquxlfUQHEVSHACZ1614-64-53 11:05:00 Test Item Value Reference Range Interpretation Comments Segs (test code = Segs) 56.4 45.0-75.0 [facility] NortheastCyhpvorGMRYVQYBIE9265-74-07 11:05:00 Test Item Value Reference Range Interpretation Comments Basophils (test code = 0.8 See_Comment [Aut omated message] The Basophils) system which ge nerated this result tra nsmitted reference range : <=1.0. The reference r andreia was not used to int erpret this result as normal/abnormal . [facility]CARDI CKMMOGK7952-49-74 11:05:00 Test Item Value Reference Range Interpretation Comments Troponin-I (test code 1.15 See_Comment [Auto mated message] The = Troponin-I) system which g enerated this result transmit dewayne reference range : <=0.40. The reference r andreia was not used to interpr et this result as dallin l/abnormal. [facility] NortheastGrnereaCFRKHLFHXE2832-73-91 11:05:00 Test Item Value Reference Range Interpretation Comments Monocytes # (test code 0.7 See_Comment [Aut omated message] The = Monocytes #) system which generated this result tra nsmitted reference range : <=0.8. The reference r andreia was not used to int erpret this result as normal/abnormal . [facility] NortheastZshpyvaLLKVJXZGHR0660-82-51 11:05:00 Test Item Value Reference Range Interpretation Comments Lymphocytes # (test code = Lymphocytes 1.6 1.0-5.5 #) [facility] NortheastRxpznpdYBLJVCHQCP5908-36-56 11:05:00 Test Item Value Reference Range Interpretation Comments Neutrophils # (test code = Neutrophils 3.9 1.5-8.1 #) [facility] NortheastZhtwfocRSNTQUUWVQ0977-81-57 11:05:00 Test Item Value Reference Range Interpretation Comments Eosinophils # (test code 0.6 See_Comment [A utomated message] The = Eosinophils #) system whic h generated this result tra nsmitted reference range : <=0.5. The reference r andreia was not used to int erpret this result as normal/abnormal . [facility] NortheastNsgryasDAPJJGCJOH7453-13-39 11:05:00 Test Item Value Reference Range Interpretation Comments Eosinophils (test code = 8.6 See_Comment [A utomated message] The Eosinophils) system which ge nerated this result tra nsmitted reference range : <=4.0. The reference r andreia was not used to int erpret this result as normal/abnormal . [facility] NortheastIjqkkotWAXCIIBTXD1711-20-49 11:05:00 Test Item Value Reference Range Interpretation Comments Monocytes (test code = Monocytes) 10.5 2.0-12.0 [facility] NortheastGxvjhpkNMGNKSQKZZ0604-06-07 11:05:00 Test Item Value Reference Range Interpretation Comments Basophils # (test code 0.1 See_Comment [Aut omated message] The = Basophils #) system which generated this result tra nsmitted reference range : <=0.2. The reference r andreia was not used to int erpret this result as normal/abnormal . [facility] NortheastIykreyjJFYMUIVFWL3844-97-49 11:05:00 Test Item Value Reference Range Interpretation Comments Lymphocytes (test code = Lymphocytes) 23.7 20.0-40.0 [facility] NortheastQewyovrITOBCMUXDP1210-07-64 11:05:00 Test Item Value Reference Range Interpretation Comments Segs (test code = Segs) 56.4 45.0-75.0 [facility] NortheastEhorqmcGLQFWKRZRF3098-01-06 11:05:00 Test Item Value Reference Range Interpretation Comments Basophils (test code = 0.8 See_Comment [Aut omated message] The Basophils) system which ge nerated this result tra nsmitted reference range : <=1.0. The reference r andreia was not used to int erpret this result as normal/abnormal . [facility] GLOSTWN2465-55-54 11:05:00 Test Item Value Reference Range Interpretation Comments Troponin-I (test code 1.15 See_Comment [Auto mated message] The = Troponin-I) system which g enerated this result transmit dewayne reference range : <=0.40. The reference r andreia was not used to interpr et this result as dallin l/abnormal. [facility] NortheastYmolozjECHGYNXYNV6402-25-74 11:05:00 Test Item Value Reference Range Interpretation Comments Monocytes # (test code 0.7 See_Comment [Aut omated message] The = Monocytes #) system which generated this result tra nsmitted reference range : <=0.8. The reference r andreia was not used to int erpret this result as normal/abnormal . [facility] NortheastMfsvvphLXCCKPBIOV8029-40-08 11:05:00 Test Item Value Reference Range Interpretation Comments Lymphocytes # (test code = Lymphocytes 1.6 1.0-5.5 #) [facility] NortheastTcwzbddYCMCVKFWLN5925-53-34 11:05:00 Test Item Value Reference Range Interpretation Comments Neutrophils # (test code = Neutrophils 3.9 1.5-8.1 #) [facility] NortheastPqmfeizPMOGDNITOS2160-86-88 11:05:00 Test Item Value Reference Range Interpretation Comments Eosinophils # (test code 0.6 See_Comment [A utomated message] The = Eosinophils #) system whic h generated this result tra nsmitted reference range : <=0.5. The reference r andreia was not used to int erpret this result as normal/abnormal . [facility] NortheastXooimanQYMXXJEPMZ3288-02-37 11:05:00 Test Item Value Reference Range Interpretation Comments Eosinophils (test code = 8.6 See_Comment [A utomated message] The Eosinophils) system which ge nerated this result tra nsmitted reference range : <=4.0. The reference r andreia was not used to int erpret this result as normal/abnormal . [facility] NortheastTglmphhGPVYIETSAB1202-65-65 11:05:00 Test Item Value Reference Range Interpretation Comments Monocytes (test code = Monocytes) 10.5 2.0-12.0 [facility] NortheastVmywqdfVNSINZCMZV8727-67-55 11:05:00 Test Item Value Reference Range Interpretation Comments Basophils # (test code 0.1 See_Comment [Aut omated message] The = Basophils #) system which generated this result tra nsmitted reference range : <=0.2. The reference r andreia was not used to int erpret this result as normal/abnormal . [facility] NortheastMzbgekoIAXDZXJXZD4177-03-89 11:05:00 Test Item Value Reference Range Interpretation Comments Lymphocytes (test code = Lymphocytes) 23.7 20.0-40.0 [facility] NortheastBttekjaHIDHRBTAGL9515-56-69 11:05:00 Test Item Value Reference Range Interpretation Comments Segs (test code = Segs) 56.4 45.0-75.0 [facility] NortheastOpfbbizDAWZVNYHGX3773-74-90 11:05:00 Test Item Value Reference Range Interpretation Comments Basophils (test code = 0.8 See_Comment [Aut omated message] The Basophils) system which ge nerated this result tra nsmitted reference range : <=1.0. The reference r andreia was not used to int erpret this result as normal/abnormal . [facility] ZXCCHFX2245-44-78 11:05:00 Test Item Value Reference Range Interpretation Comments Troponin-I (test code 1.15 See_Comment [Auto mated message] The = Troponin-I) system which g enerated this result transmit dewayne reference range : <=0.40. The reference r andreia was not used to interpr et this result as dallin l/abnormal. [facility] NortheastNjdeszbGIVZYYOVCW8032-18-36 11:05:00 Test Item Value Reference Range Interpretation Comments Monocytes # (test code 0.7 See_Comment [Aut omated message] The = Monocytes #) system which generated this result tra nsmitted reference range : <=0.8. The reference r andreia was not used to int erpret this result as normal/abnormal . [facility] NortheastYubfcitOWUBOPYTAC1993-67-35 11:05:00 Test Item Value Reference Range Interpretation Comments Lymphocytes # (test code = Lymphocytes 1.6 1.0-5.5 #) [facility] NortheastZokdpddPOTABQCRFA3981-29-25 11:05:00 Test Item Value Reference Range Interpretation Comments Neutrophils # (test code = Neutrophils 3.9 1.5-8.1 #) [facility] NortheastFbadgbbMBHACABXQW1247-44-12 11:05:00 Test Item Value Reference Range Interpretation Comments Eosinophils # (test code 0.6 See_Comment [A utomated message] The = Eosinophils #) system wh h generated this result tra nsmitted reference range : <=0.5. The reference r andreia was not used to int erpret this result as normal/abnormal . [facility] NortheastBolzfwdWXEGDZQFMB1727-98-14 11:05:00 Test Item Value Reference Range Interpretation Comments Eosinophils (test code = 8.6 See_Comment [A utomated message] The Eosinophils) system which ge nerated this result tra nsmitted reference range : <=4.0. The reference r andreia was not used to int erpret this result as normal/abnormal . [facility] NortheastVeifhkqMUYAEMDBOU9824-52-10 11:05:00 Test Item Value Reference Range Interpretation Comments Monocytes (test code = Monocytes) 10.5 2.0-12.0 [facility] NortheastYxugqssCKSXARXUFB1073-00-24 11:05:00 Test Item Value Reference Range Interpretation Comments Basophils # (test code 0.1 See_Comment [Aut omated message] The = Basophils #) system which generated this result tra nsmitted reference range : <=0.2. The reference r andreia was not used to int erpret this result as normal/abnormal . [facility] NortheastQgsocxxMUTEIQSTUR6347-26-72 11:05:00 Test Item Value Reference Range Interpretation Comments Lymphocytes (test code = Lymphocytes) 23.7 20.0-40.0 [facility] NortheastAuphzotYIELIHMEXG6982-78-75 11:05:00 Test Item Value Reference Range Interpretation Comments Segs (test code = Segs) 56.4 45.0-75.0 [id number] 11:05:00 Test Item Value Reference Range Interpretation Comments Basophils (test code = 0.8 See_Comment [Aut omated message] The Basophils) system which ge nerated this result tra nsmitted reference range : <=1.0. The reference r andreia was not used to int erpret this result as normal/abnormal . [facility] [id number] 11:05:00 Test Item Value Reference Range Interpretation Comments Troponin-I (test code 1.15 See_Comment [Auto mated message] The = Troponin-I) system which g enerated this result transmit dewayne reference range : <=0.40. The reference r andreia was not used to interpr et this result as dallin l/abnormal. [id number] 11:05:00 Test Item Value Reference Range Interpretation Comments Monocytes # (test code 0.7 See_Comment [Aut omated message] The = Monocytes #) system which generated this result tra nsmitted reference range : <=0.8. The reference r andreia was not used to int erpret this result as normal/abnormal . [facility]YpioqvkHPYWISCUXH5168-81-77 11:05:00 Test Item Value Reference Range Interpretation Comments Lymphocytes # (test code = Lymphocytes 1.6 1.0-5.5 #) [id number] 11:05:00 Test Item Value Reference Range Interpretation Comments Neutrophils # (test code = Neutrophils 3.9 1.5-8.1 #) [id number] 11:05:00 Test Item Value Reference Range Interpretation Comments Eosinophils # (test code 0.6 See_Comment [A utomated message] The = Eosinophils #) system whic h generated this result tra nsmitted reference range : <=0.5. The reference r andreia was not used to int erpret this result as normal/abnormal . [id number] 11:05:00 Test Item Value Reference Range Interpretation Comments Eosinophils (test code = 8.6 See_Comment [A utomated message] The Eosinophils) system which ge nerated this result tra nsmitted reference range : <=4.0. The reference r andreia was not used to int erpret this result as normal/abnormal . [facility]XzqpamcBRJXVYNZJN4481-14-16 11:05:00 Test Item Value Reference Range Interpretation Comments Monocytes (test code = Monocytes) 10.5 2.0-12.0 [facility]AwkkwajKYRIOOOQOM5909-51-07 11:05:00 Test Item Value Reference Range Interpretation Comments Basophils # (test code 0.1 See_Comment [Aut omated message] The = Basophils #) system which generated this result tra nsmitted reference range : <=0.2. The reference r andreia was not used to int erpret this result as normal/abnormal . [facility]DuvoqnfXJCQFLDOQO0371-40-25 11:05:00 Test Item Value Reference Range Interpretation Comments Lymphocytes (test code = Lymphocytes) 23.7 20.0-40.0 [facility]PcxkyfqAAYNHMJCMR3776-29-73 11:05:00 Test Item Value Reference Range Interpretation Comments Segs (test code = Segs) 56.4 45.0-75.0 [facility]ByvxogqHOODNYPTTD8276-08-05 11:05:00 Test Item Value Reference Range Interpretation Comments Basophils (test code = 0.8 See_Comment [Aut omated message] The Basophils) system which ge nerated this result tra nsmitted reference range : <=1.0. The reference r andreia was not used to int erpret this result as normal/abnormal . [facility] [id number] 11:05:00 Test Item Value Reference Range Interpretation Comments Troponin-I (test code 1.15 See_Comment [Auto mated message] The = Troponin-I) system which g enerated this result transmit dewayne reference range : <=0.40. The reference r andreia was not used to interpr et this result as dallin l/abnormal. [facility] NortheastTnnohtlGMWSFGXXLI5531-82-50 11:05:00 Test Item Value Reference Range Interpretation Comments Monocytes # (test code 0.7 See_Comment [Aut omated message] The = Monocytes #) system which generated this result tra nsmitted reference range : <=0.8. The reference r andreia was not used to int erpret this result as normal/abnormal . [place] [id number] 11:05:00 Test Item Value Reference Range Interpretation Comments Lymphocytes # (test code = Lymphocytes 1.6 1.0-5.5 #) [id number] 11:05:00 Test Item Value Reference Range Interpretation Comments Neutrophils # (test code = Neutrophils 3.9 1.5-8.1 #) [facility]XexklbrDKUCVWIPUD4422-27-16 11:05:00 Test Item Value Reference Range Interpretation Comments Eosinophils # (test code 0.6 See_Comment [A utomated message] The = Eosinophils #) system whic h generated this result tra nsmitted reference range : <=0.5. The reference r andreia was not used to int erpret this result as normal/abnormal . [facility] NortheastLeuyniaWSBETEOQFT4515-30-15 11:05:00 Test Item Value Reference Range Interpretation Comments Eosinophils (test code = 8.6 See_Comment [A utomated message] The Eosinophils) system which ge nerated this result tra nsmitted reference range : <=4.0. The reference r andreia was not used to int erpret this result as normal/abnormal . [facility] NortheastObcyjfiGICHXAIWSM0311-16-28 11:05:00 Test Item Value Reference Range Interpretation Comments Monocytes (test code = Monocytes) 10.5 2.0-12.0 [facility] NortheastNiopefsLAXMMTRHXK9566-74-72 11:05:00 Test Item Value Reference Range Interpretation Comments Basophils # (test code 0.1 See_Comment [Aut omated message] The = Basophils #) system which generated this result tra nsmitted reference range : <=0.2. The reference r andreia was not used to int erpret this result as normal/abnormal . [facility] Nort[id number] 11:05:00 Test Item Value Reference Range Interpretation Comments Lymphocytes (test code = Lymphocytes) 23.7 20.0-40.0 [facility] NortheastIkoutisCGGPOKDXJN8444-43-96 11:05:00 Test Item Value Reference Range Interpretation Comments Segs (test code = Segs) 56.4 45.0-75.0 [facility] NortheastLhxfnnrXTPGUZCPEJ0807-18-00 11:05:00 Test Item Value Reference Range Interpretation Comments Basophils (test code = 0.8 See_Comment [Aut omated message] The Basophils) system which ge nerated this result tra nsmitted reference range : <=1.0. The reference r andreia was not used to int erpret this result as normal/abnormal . [facility] RunaAC [id number] 06:06:00 Test Item Value Reference Range Interpretation Comments Troponin-I (test code = Troponin-I) 2.18 <=0.40 [facility] [id number] 06:06:00 Test Item Value Reference Range Interpretation Comments Alk Phos (test code = Alk Phos) 197 39-136 [facility] [id number] 06:06:00 Test Item Value Reference Range Interpretation Comments Albumin Lvl (test code = Albumin Lvl) 1.9 3.5-5.0 [facility] [id number] 06:06:00 Test Item Value Reference Range Interpretation Comments AST (test code = AST) 33 <=37 [facility] [id number] 06:06:00 Test Item Value Reference Range Interpretation Comments Total Protein (test code = Total 6.0 6.4-8.4 Protein) [facility] [id number] 06:06:00 Test Item Value Reference Range Interpretation Comments ALT (test code = ALT) 18 <=65 [facility] [id number] 06:06:00 Test Item Value Reference Range Interpretation Comments A/G Ratio (test code = A/G Ratio) 0.5 1 0.7-1.6 [facility] [id number] 06:06:00 Test Item Value Reference Range Interpretation Comments Globulin (test code = Globulin) 4.1 2.7-4.2 [facility] [id number] 06:06:00 Test Item Value Reference Range Interpretation Comments Bili Total (test code = Bili Total) 0.9 0.2-1.3 [facility] [id number] 06:06:00 Test Item Value Reference Range Interpretation Comments B/C Ratio (test code = B/C Ratio) 20 1 6-25 [facility] [employer] [id number] 06:06:00 Test Item Value Reference Range Interpretation Comments Troponin-I (test code 2.18 See_Comment [Auto mated message] The = Troponin-I) system which g enerated this result transmit dewayne reference range : <=0.40. The reference r andreia was not used to interpr et this result as dallin l/abnormal. [facility] [id number] 06:06:00 Test Item Value Reference Range Interpretation Comments Alk Phos (test code = Alk Phos) 197 39-136 [facility]2019-06-12 06:06:00 Test Item Value Reference Range Interpretation Comments Albumin Lvl (test code = Albumin Lvl) 1.9 3.5-5.0 [facility]MashWorxRANDOLPH [id number] 06:06:00 Test Item Value Reference Range Interpretation Comments AST (test code = AST) 33 See_Comment [Auto mated message] The system which ge nerated this result transmit dewayne reference range : <=37. The reference range was not used to interpr et this result as dallin l/abnormal. [facility] [id number] 06:06:00 Test Item Value Reference Range Interpretation Comments Total Protein (test code = Total 6.0 6.4-8.4 Protein) [facility] [id number] 06:06:00 Test Item Value Reference Range Interpretation Comments ALT (test code = ALT) 18 See_Comment [Auto mated message] The system which ge nerated this result transmit dewayne reference range : <=65. The reference range was not used to interpr et this result as dallin l/abnormal. [facility] [id number] 06:06:00 Test Item Value Reference Range Interpretation Comments A/G Ratio (test code = A/G Ratio) 0.5 1 0.7-1.6 [facility] [id number] 06:06:00 Test Item Value Reference Range Interpretation Comments Globulin (test code = Globulin) 4.1 2.7-4.2 [facility] [id number] 06:06:00 Test Item Value Reference Range Interpretation Comments Bili Total (test code = Bili Total) 0.9 0.2-1.3 [facility] [id number] 06:06:00 Test Item Value Reference Range Interpretation Comments B/C Ratio (test code = B/C Ratio) 20 1 6-25 [facility] [id number] 06:06:00 Test Item Value Reference Range Interpretation Comments Troponin-I (test code 2.18 See_Comment [Auto mated message] The = Troponin-I) system which g enerated this result transmit dewayne reference range : <=0.40. The reference r andreia was not used to interpr et this result as dallin l/abnormal. [facility]2019-06-12 06:06:00 Test Item Value Reference Range Interpretation Comments Alk Phos (test code = Alk Phos) 197 39-136 [facility]2019-06-12 06:06:00 Test Item Value Reference Range Interpretation Comments Albumin Lvl (test code = Albumin Lvl) 1.9 3.5-5.0 [facility]2019-06-12 06:06:00 Test Item Value Reference Range Interpretation Comments AST (test code = AST) 33 See_Comment [Auto mated message] The system which ge nerated this result transmit dewayne reference range : <=37. The reference range was not used to interpr et this result as dallin l/abnormal. [facility]2019-06-12 06:06:00 Test Item Value Reference Range Interpretation Comments Total Protein (test code = Total 6.0 6.4-8.4 Protein) [facility]2019-06-12 06:06:00 Test Item Value Reference Range Interpretation Comments ALT (test code = ALT) 18 See_Comment [Auto mated message] The system which ge nerated this result transmit dewayne reference range : <=65. The reference range was not used to interpr et this result as dallin l/abnormal. [facility]2019-06-12 06:06:00 Test Item Value Reference Range Interpretation Comments A/G Ratio (test code = A/G Ratio) 0.5 1 0.7-1.6 [facility]2019-06-12 06:06:00 Test Item Value Reference Range Interpretation Comments Globulin (test code = Globulin) 4.1 2.7-4.2 [facility]2019-06-12 06:06:00 Test Item Value Reference Range Interpretation Comments Bili Total (test code = Bili Total) 0.9 0.2-1.3 [facility]2019-06-12 06:06:00 Test Item Value Reference Range Interpretation Comments B/C Ratio (test code = B/C Ratio) 20 1 6-25 [facility] [id number] 06:06:00 Test Item Value Reference Range Interpretation Comments Troponin-I (test code 2.18 See_Comment [Auto mated message] The = Troponin-I) system which g enerated this result transmit dewayne reference range : <=0.40. The reference r andreia was not used to interpr et this result as dallin l/abnormal. [facility] [id number] 06:06:00 Test Item Value Reference Range Interpretation Comments Alk Phos (test code = Alk Phos) 197 39-136 [facility] [id number] 06:06:00 Test Item Value Reference Range Interpretation Comments Albumin Lvl (test code = Albumin Lvl) 1.9 3.5-5.0 [facility] [id number] 06:06:00 Test Item Value Reference Range Interpretation Comments AST (test code = AST) 33 See_Comment [Auto mated message] The system which ge nerated this result transmit dewayne reference range : <=37. The reference range was not used to interpr et this result as dallin l/abnormal. [facility] [id number] 06:06:00 Test Item Value Reference Range Interpretation Comments Total Protein (test code = Total 6.0 6.4-8.4 Protein) [facility] [id number] 06:06:00 Test Item Value Reference Range Interpretation Comments ALT (test code = ALT) 18 See_Comment [Auto mated message] The system which ge nerated this result transmit dewayne reference range : <=65. The reference range was not used to interpr et this result as dallin l/abnormal. [facility] [id number] 06:06:00 Test Item Value Reference Range Interpretation Comments A/G Ratio (test code = A/G Ratio) 0.5 1 0.7-1.6 [facility] [id number] 06:06:00 Test Item Value Reference Range Interpretation Comments Globulin (test code = Globulin) 4.1 2.7-4.2 [facility] [id number] 06:06:00 Test Item Value Reference Range Interpretation Comments Bili Total (test code = Bili Total) 0.9 0.2-1.3 [facility] [id number] 06:06:00 Test Item Value Reference Range Interpretation Comments B/C Ratio (test code = B/C Ratio) 20 1 6-25 [facility] [id number] 06:06:00 Test Item Value Reference Range Interpretation Comments Troponin-I (test code 2.18 See_Comment [Auto mated message] The = Troponin-I) system which g enerated this result transmit dewayne reference range : <=0.40. The reference r andreia was not used to interpr et this result as dallin l/abnormal. [facility] [id number] 06:06:00 Test Item Value Reference Range Interpretation Comments Alk Phos (test code = Alk Phos) 197 39-136 [facility] [id number] 06:06:00 Test Item Value Reference Range Interpretation Comments Albumin Lvl (test code = Albumin Lvl) 1.9 3.5-5.0 [facility] [id number] 06:06:00 Test Item Value Reference Range Interpretation Comments AST (test code = AST) 33 See_Comment [Auto mated message] The system which ge nerated this result transmit dewayne reference range : <=37. The reference range was not used to interpr et this result as dallin l/abnormal. [facility] [id number] 06:06:00 Test Item Value Reference Range Interpretation Comments Total Protein (test code = Total 6.0 6.4-8.4 Protein) [facility] [id number] 06:06:00 Test Item Value Reference Range Interpretation Comments ALT (test code = ALT) 18 See_Comment [Auto mated message] The system which ge nerated this result transmit dewayne reference range : <=65. The reference range was not used to interpr et this result as dallin l/abnormal. [facility] [id number] 06:06:00 Test Item Value Reference Range Interpretation Comments A/G Ratio (test code = A/G Ratio) 0.5 1 0.7-1.6 [facility] [id number] 06:06:00 Test Item Value Reference Range Interpretation Comments Globulin (test code = Globulin) 4.1 2.7-4.2 [facility] [id number] 06:06:00 Test Item Value Reference Range Interpretation Comments Bili Total (test code = Bili Total) 0.9 0.2-1.3 [facility] [id number] 06:06:00 Test Item Value Reference Range Interpretation Comments B/C Ratio (test code = B/C Ratio) 20 1 6-25 [facility] [id number] 06:06:00 Test Item Value Reference Range Interpretation Comments Troponin-I (test code 2.18 See_Comment [Auto mated message] The = Troponin-I) system which g enerated this result transmit dewayne reference range : <=0.40. The reference r andreia was not used to interpr et this result as dallin l/abnormal. [facility]2019-06-12 06:06:00 Test Item Value Reference Range Interpretation Comments Alk Phos (test code = Alk Phos) 197 39-136 [facility]2019-06-12 06:06:00 Test Item Value Reference Range Interpretation Comments Albumin Lvl (test code = Albumin Lvl) 1.9 3.5-5.0 [facility]2019-06-12 06:06:00 Test Item Value Reference Range Interpretation Comments AST (test code = AST) 33 See_Comment [Auto mated message] The system which ge nerated this result transmit dewayne reference range : <=37. The reference range was not used to interpr et this result as dallin l/abnormal. [facility]2019-06-12 06:06:00 Test Item Value Reference Range Interpretation Comments Total Protein (test code = Total 6.0 6.4-8.4 Protein) [facility]2019-06-12 06:06:00 Test Item Value Reference Range Interpretation Comments ALT (test code = ALT) 18 See_Comment [Auto mated message] The system which ge nerated this result transmit dewayne reference range : <=65. The reference range was not used to interpr et this result as dallin l/abnormal. [facility]2019-06-12 06:06:00 Test Item Value Reference Range Interpretation Comments A/G Ratio (test code = A/G Ratio) 0.5 1 0.7-1.6 [facility]2019-06-12 06:06:00 Test Item Value Reference Range Interpretation Comments Globulin (test code = Globulin) 4.1 2.7-4.2 [facility] [id number] 06:06:00 Test Item Value Reference Range Interpretation Comments Bili Total (test code = Bili Total) 0.9 0.2-1.3 [facility] [id number] 06:06:00 Test Item Value Reference Range Interpretation Comments B/C Ratio (test code = B/C Ratio) 20 1 6-25 [facility] [id number] 06:06:00 Test Item Value Reference Range Interpretation Comments Troponin-I (test code 2.18 See_Comment [Auto mated message] The = Troponin-I) system which g enerated this result transmit dewayne reference range : <=0.40. The reference r andreia was not used to interpr et this result as dallin l/abnormal. [facility] [id number] 06:06:00 Test Item Value Reference Range Interpretation Comments Alk Phos (test code = Alk Phos) 197 39-136 [facility] [id number] 06:06:00 Test Item Value Reference Range Interpretation Comments Albumin Lvl (test code = Albumin Lvl) 1.9 3.5-5.0 [facility] [id number] 06:06:00 Test Item Value Reference Range Interpretation Comments AST (test code = AST) 33 See_Comment [Auto mated message] The system which ge nerated this result transmit dewayne reference range : <=37. The reference range was not used to interpr et this result as dallin l/abnormal. [facility] [id number] 06:06:00 Test Item Value Reference Range Interpretation Comments Total Protein (test code = Total 6.0 6.4-8.4 Protein) [facility] [id number] 06:06:00 Test Item Value Reference Range Interpretation Comments ALT (test code = ALT) 18 See_Comment [Auto mated message] The system which ge nerated this result transmit dewayne reference range : <=65. The reference range was not used to interpr et this result as dallin l/abnormal. [facility] [id number] 06:06:00 Test Item Value Reference Range Interpretation Comments A/G Ratio (test code = A/G Ratio) 0.5 1 0.7-1.6 [facility] [id number] 06:06:00 Test Item Value Reference Range Interpretation Comments Globulin (test code = Globulin) 4.1 2.7-4.2 [facility] [id number] 06:06:00 Test Item Value Reference Range Interpretation Comments Bili Total (test code = Bili Total) 0.9 0.2-1.3 [facility] [id number] 06:06:00 Test Item Value Reference Range Interpretation Comments B/C Ratio (test code = B/C Ratio) 20 1 6-25 [facility] [id number] 06:06:00 Test Item Value Reference Range Interpretation Comments Troponin-I (test code 2.18 See_Comment [Auto mated message] The = Troponin-I) system which g enerated this result transmit dewayne reference range : <=0.40. The reference r andreia was not used to interpr et this result as dallin l/abnormal. [facility] [id number] 06:06:00 Test Item Value Reference Range Interpretation Comments Alk Phos (test code = Alk Phos) 197 39-136 [facility] [id number] 06:06:00 Test Item Value Reference Range Interpretation Comments Albumin Lvl (test code = Albumin Lvl) 1.9 3.5-5.0 [facility] [id number] 06:06:00 Test Item Value Reference Range Interpretation Comments AST (test code = AST) 33 See_Comment [Auto mated message] The system which ge nerated this result transmit dewayne reference range : <=37. The reference range was not used to interpr et this result as dallin l/abnormal. [facility] [id number] 06:06:00 Test Item Value Reference Range Interpretation Comments Total Protein (test code = Total 6.0 6.4-8.4 Protein) [facility] [id number] 06:06:00 Test Item Value Reference Range Interpretation Comments ALT (test code = ALT) 18 See_Comment [Auto mated message] The system which ge nerated this result transmit dewayne reference range : <=65. The reference range was not used to interpr et this result as dallin l/abnormal. [facility] 06:06:00 Test Item Value Reference Range Interpretation Comments A/G Ratio (test code = A/G Ratio) 0.5 1 0.7-1.6 [facility] [id number] 06:06:00 Test Item Value Reference Range Interpretation Comments Globulin (test code = Globulin) 4.1 2.7-4.2 [facility] [id number] 06:06:00 Test Item Value Reference Range Interpretation Comments Bili Total (test code = Bili Total) 0.9 0.2-1.3 [facility] [id number] 06:06:00 Test Item Value Reference Range Interpretation Comments B/C Ratio (test code = B/C Ratio) 20 1 6-25 [facility] [id number] 06:06:00 Test Item Value Reference Range Interpretation Comments Troponin-I (test code 2.18 See_Comment [Auto mated message] The = Troponin-I) system which g enerated this result transmit dewayne reference range : <=0.40. The reference r andreia was not used to interpr et this result as dallin l/abnormal. [facility] [id number] 06:06:00 Test Item Value Reference Range Interpretation Comments Alk Phos (test code = Alk Phos) 197 39-136 [facility] [id number] 06:06:00 Test Item Value Reference Range Interpretation Comments Albumin Lvl (test code = Albumin Lvl) 1.9 3.5-5.0 [facility] [id number] 06:06:00 Test Item Value Reference Range Interpretation Comments AST (test code = AST) 33 See_Comment [Auto mated message] The system which ge nerated this result transmit dewayne reference range : <=37. The reference range was not used to interpr et this result as dallin l/abnormal. [facility] [id number] 06:06:00 Test Item Value Reference Range Interpretation Comments Total Protein (test code = Total 6.0 6.4-8.4 Protein) [facility] [id number] 06:06:00 Test Item Value Reference Range Interpretation Comments ALT (test code = ALT) 18 See_Comment [Auto mated message] The system which ge nerated this result transmit dewayne reference range : <=65. The reference range was not used to interpr et this result as dallin l/abnormal. [facility] [id number] 06:06:00 Test Item Value Reference Range Interpretation Comments A/G Ratio (test code = A/G Ratio) 0.5 1 0.7-1.6 [facility] [id number] 06:06:00 Test Item Value Reference Range Interpretation Comments Globulin (test code = Globulin) 4.1 2.7-4.2 [facility] [id number] 06:06:00 Test Item Value Reference Range Interpretation Comments Bili Total (test code = Bili Total) 0.9 0.2-1.3 [facility] [id number] 06:06:00 Test Item Value Reference Range Interpretation Comments B/C Ratio (test code = B/C Ratio) 20 1 6-25 [facility] [id number] 06:06:00 Test Item Value Reference Range Interpretation Comments Troponin-I (test code 2.18 See_Comment [Auto mated message] The = Troponin-I) system which g enerated this result transmit dewayne reference range : <=0.40. The reference r andreia was not used to interpr et this result as dallin l/abnormal. [facility] [id number] 06:06:00 Test Item Value Reference Range Interpretation Comments Alk Phos (test code = Alk Phos) 197 39-136 [facility] [id number] 06:06:00 Test Item Value Reference Range Interpretation Comments Albumin Lvl (test code = Albumin Lvl) 1.9 3.5-5.0 [facility] [id number] 06:06:00 Test Item Value Reference Range Interpretation Comments AST (test code = AST) 33 See_Comment [Auto mated message] The system which ge nerated this result transmit dewayne reference range : <=37. The reference range was not used to interpr et this result as dallin l/abnormal. [facility] [id number] 06:06:00 Test Item Value Reference Range Interpretation Comments Total Protein (test code = Total 6.0 6.4-8.4 Protein) [facility] [id number] 06:06:00 Test Item Value Reference Range Interpretation Comments ALT (test code = ALT) 18 See_Comment [Auto mated message] The system which ge nerated this result transmit dewayne reference range : <=65. The reference range was not used to interpr et this result as dallin l/abnormal. [facility] [id number] 06:06:00 Test Item Value Reference Range Interpretation Comments A/G Ratio (test code = A/G Ratio) 0.5 1 0.7-1.6 [facility] [id number] 06:06:00 Test Item Value Reference Range Interpretation Comments Globulin (test code = Globulin) 4.1 2.7-4.2 [facility] [id number] 06:06:00 Test Item Value Reference Range Interpretation Comments Bili Total (test code = Bili Total) 0.9 0.2-1.3 [facility] [id number] 06:06:00 Test Item Value Reference Range Interpretation Comments B/C Ratio (test code = B/C Ratio) 20 1 6-25 [facility] [id number] 06:06:00 Test Item Value Reference Range Interpretation Comments Troponin-I (test code 2.18 See_Comment [Auto mated message] The = Troponin-I) system which g enerated this result transmit dewayne reference range : <=0.40. The reference r andreia was not used to interpr et this result as dallin l/abnormal. [facility] [id number] 06:06:00 Test Item Value Reference Range Interpretation Comments Alk Phos (test code = Alk Phos) 197 39-136 [facility] [id number] 06:06:00 Test Item Value Reference Range Interpretation Comments Albumin Lvl (test code = Albumin Lvl) 1.9 3.5-5.0 [facility] [id number] 06:06:00 Test Item Value Reference Range Interpretation Comments AST (test code = AST) 33 See_Comment [Auto mated message] The system which ge nerated this result transmit dewayne reference range : <=37. The reference range was not used to interpr et this result as dallin l/abnormal. [facility] [id number] 06:06:00 Test Item Value Reference Range Interpretation Comments Total Protein (test code = Total 6.0 6.4-8.4 Protein) [facility] [id number] 06:06:00 Test Item Value Reference Range Interpretation Comments ALT (test code = ALT) 18 See_Comment [Auto mated message] The system which ge nerated this result transmit dewayne reference range : <=65. The reference range was not used to interpr et this result as dallin l/abnormal. [facility] [id number] 06:06:00 Test Item Value Reference Range Interpretation Comments A/G Ratio (test code = A/G Ratio) 0.5 1 0.7-1.6 [facility]2019-06-12 06:06:00 Test Item Value Reference Range Interpretation Comments Globulin (test code = Globulin) 4.1 2.7-4.2 [facility] [id number] 06:06:00 Test Item Value Reference Range Interpretation Comments Bili Total (test code = Bili Total) 0.9 0.2-1.3 [facility] [id number] 06:06:00 Test Item Value Reference Range Interpretation Comments B/C Ratio (test code = B/C Ratio) 20 1 6-25 [facility] [id number] 06:06:00 Test Item Value Reference Range Interpretation Comments Troponin-I (test code = Troponin-I) 2.18 <=0.40 [facility] [id number] 06:06:00 Test Item Value Reference Range Interpretation Comments Alk Phos (test code = Alk Phos) 197 39-136 [facility] [id number] 06:06:00 Test Item Value Reference Range Interpretation Comments Albumin Lvl (test code = Albumin Lvl) 1.9 3.5-5.0 [facility] [id number] 06:06:00 Test Item Value Reference Range Interpretation Comments AST (test code = AST) 33 <=37 [facility] [id number] 06:06:00 Test Item Value Reference Range Interpretation Comments Total Protein (test code = Total 6.0 6.4-8.4 Protein) [facility] [id number] 06:06:00 Test Item Value Reference Range Interpretation Comments ALT (test code = ALT) 18 <=65 [facility] [id number] 06:06:00 Test Item Value Reference Range Interpretation Comments A/G Ratio (test code = A/G Ratio) 0.5 1 0.7-1.6 [facility] [id number] 06:06:00 Test Item Value Reference Range Interpretation Comments Globulin (test code = Globulin) 4.1 2.7-4.2 [facility] [id number] 06:06:00 Test Item Value Reference Range Interpretation Comments Bili Total (test code = Bili Total) 0.9 0.2-1.3 [facility] [id number] 06:06:00 Test Item Value Reference Range Interpretation Comments B/C Ratio (test code = B/C Ratio) 20 1 6-25 [facility] [id number] 06:06:00 Test Item Value Reference Range Interpretation Comments Troponin-I (test code 2.18 See_Comment [Auto mated message] The = Troponin-I) system which g enerated this result transmit dewayne reference range : <=0.40. The reference r andreia was not used to interpr et this result as dallin l/abnormal. [facility] [id number] 06:06:00 Test Item Value Reference Range Interpretation Comments Alk Phos (test code = Alk Phos) 197 39-136 [facility]2019-06-12 06:06:00 Test Item Value Reference Range Interpretation Comments Albumin Lvl (test code = Albumin Lvl) 1.9 3.5-5.0 [facility] [id number] 06:06:00 Test Item Value Reference Range Interpretation Comments AST (test code = AST) 33 See_Comment [Auto mated message] The system which ge nerated this result transmit dewayne reference range : <=37. The reference range was not used to interpr et this result as dallin l/abnormal. [facility] [id number] 06:06:00 Test Item Value Reference Range Interpretation Comments Total Protein (test code = Total 6.0 6.4-8.4 Protein) [facility] [id number] 06:06:00 Test Item Value Reference Range Interpretation Comments ALT (test code = ALT) 18 See_Comment [Auto mated message] The system which ge nerated this result transmit dewayne reference range : <=65. The reference range was not used to interpr et this result as dallin l/abnormal. [facility] [id number] 06:06:00 Test Item Value Reference Range Interpretation Comments A/G Ratio (test code = A/G Ratio) 0.5 1 0.7-1.6 [facility] [id number] 06:06:00 Test Item Value Reference Range Interpretation Comments Globulin (test code = Globulin) 4.1 2.7-4.2 [facility] [id number] 06:06:00 Test Item Value Reference Range Interpretation Comments Bili Total (test code = Bili Total) 0.9 0.2-1.3 [facility] [id number] 06:06:00 Test Item Value Reference Range Interpretation Comments B/C Ratio (test code = B/C Ratio) 20 1 6-25 [facility] [id number] 06:06:00 Test Item Value Reference Range Interpretation Comments Troponin-I (test code 2.18 See_Comment [Auto mated message] The = Troponin-I) system which g enerated this result transmit dewayne reference range : <=0.40. The reference r andreia was not used to interpr et this result as dallin l/abnormal. [facility] [id number] 06:06:00 Test Item Value Reference Range Interpretation Comments Alk Phos (test code = Alk Phos) 197 39-136 [facility] [id number] 06:06:00 Test Item Value Reference Range Interpretation Comments Albumin Lvl (test code = Albumin Lvl) 1.9 3.5-5.0 [facility] [id number] 06:06:00 Test Item Value Reference Range Interpretation Comments AST (test code = AST) 33 See_Comment [Auto mated message] The system which ge nerated this result transmit dewayne reference range : <=37. The reference range was not used to interpr et this result as dallin l/abnormal. [facility] [id number] 06:06:00 Test Item Value Reference Range Interpretation Comments Total Protein (test code = Total 6.0 6.4-8.4 Protein) [facility] [id number] 06:06:00 Test Item Value Reference Range Interpretation Comments ALT (test code = ALT) 18 See_Comment [Auto mated message] The system which ge nerated this result transmit dewayne reference range : <=65. The reference range was not used to interpr et this result as dallin l/abnormal. [facility] [id number] 06:06:00 Test Item Value Reference Range Interpretation Comments A/G Ratio (test code = A/G Ratio) 0.5 1 0.7-1.6 [facility]xRANDOL[facility] [id number] 06:06:00 Test Item Value Reference Range Interpretation Comments Globulin (test code = Globulin) 4.1 2.7-4.2 [facility] [id number] 06:06:00 Test Item Value Reference Range Interpretation Comments Bili Total (test code = Bili Total) 0.9 0.2-1.3 [facility] [id number] 06:06:00 Test Item Value Reference Range Interpretation Comments B/C Ratio (test code = B/C Ratio) 20 1 6-25 [facility] [id number] 06:06:00 Test Item Value Reference Range Interpretation Comments Troponin-I (test code 2.18 See_Comment [Auto mated message] The = Troponin-I) system which g enerated this result transmit dewayne reference range : <=0.40. The reference r andreia was not used to interpr et this result as dallin l/abnormal. [facility] [id number] 06:06:00 Test Item Value Reference Range Interpretation Comments Alk Phos (test code = Alk Phos) 197 39-136 [facility] [id number] 06:06:00 Test Item Value Reference Range Interpretation Comments Albumin Lvl (test code = Albumin Lvl) 1.9 3.5-5.0 [facility] [id number] 06:06:00 Test Item Value Reference Range Interpretation Comments AST (test code = AST) 33 See_Comment [Auto mated message] The system which ge nerated this result transmit dewayne reference range : <=37. The reference range was not used to interpr et this result as dallin l/abnormal. [facility] [id number] 06:06:00 Test Item Value Reference Range Interpretation Comments Total Protein (test code = Total 6.0 6.4-8.4 Protein) [facility] [id number] 06:06:00 Test Item Value Reference Range Interpretation Comments ALT (test code = ALT) 18 See_Comment [Auto mated message] The system which ge nerated this result transmit dewayne reference range : <=65. The reference range was not used to interpr et this result as dallin l/abnormal. [facility] [id number] 06:06:00 Test Item Value Reference Range Interpretation Comments A/G Ratio (test code = A/G Ratio) 0.5 1 0.7-1.6 [facility]2019-06-12 06:06:00 Test Item Value Reference Range Interpretation Comments Globulin (test code = Globulin) 4.1 2.7-4.2 [facility] [id number] 06:06:00 Test Item Value Reference Range Interpretation Comments Bili Total (test code = Bili Total) 0.9 0.2-1.3 [facility] [id number] 06:06:00 Test Item Value Reference Range Interpretation Comments B/C Ratio (test code = B/C Ratio) 20 1 6-25 [facility] [id number] 06:06:00 Test Item Value Reference Range Interpretation Comments Troponin-I (test code 2.18 See_Comment [Auto mated message] The = Troponin-I) system which g enerated this result transmit dewayne reference range : <=0.40. The reference r andreia was not used to interpr et this result as dallin l/abnormal. [facility] [id number] 06:06:00 Test Item Value Reference Range Interpretation Comments Alk Phos (test code = Alk Phos) 197 39-136 [facility] [id number] 06:06:00 Test Item Value Reference Range Interpretation Comments Albumin Lvl (test code = Albumin Lvl) 1.9 3.5-5.0 [facility] [id number] 06:06:00 Test Item Value Reference Range Interpretation Comments AST (test code = AST) 33 See_Comment [Auto mated message] The system which ge nerated this result transmit dewayne reference range : <=37. The reference range was not used to interpr et this result as dallin l/abnormal. [facility] [id number] 06:06:00 Test Item Value Reference Range Interpretation Comments Total Protein (test code = Total 6.0 6.4-8.4 Protein) [facility] [id number] 06:06:00 Test Item Value Reference Range Interpretation Comments ALT (test code = ALT) 18 See_Comment [Auto mated message] The system which ge nerated this result transmit dewayne reference range : <=65. The reference range was not used to interpr et this result as dallin l/abnormal. [facility] [id number] 06:06:00 Test Item Value Reference Range Interpretation Comments A/G Ratio (test code = A/G Ratio) 0.5 1 0.7-1.6 [facility] [id number] 06:06:00 Test Item Value Reference Range Interpretation Comments Globulin (test code = Globulin) 4.1 2.7-4.2 [facility] [id number] 06:06:00 Test Item Value Reference Range Interpretation Comments Bili Total (test code = Bili Total) 0.9 0.2-1.3 [facility] [id number] 06:06:00 Test Item Value Reference Range Interpretation Comments B/C Ratio (test code = B/C Ratio) 20 1 6-25 [facility] [id number] 06:06:00 Test Item Value Reference Range Interpretation Comments Troponin-I (test code 2.18 See_Comment [Auto mated message] The = Troponin-I) system which g enerated this result transmit dewayne reference range : <=0.40. The reference r andreia was not used to interpr et this result as dallin l/abnormal. [facility] [id number] 06:06:00 Test Item Value Reference Range Interpretation Comments Alk Phos (test code = Alk Phos) 197 39-136 [facility] [id number] 06:06:00 Test Item Value Reference Range Interpretation Comments Albumin Lvl (test code = Albumin Lvl) 1.9 3.5-5.0 [facility] [id number] 06:06:00 Test Item Value Reference Range Interpretation Comments AST (test code = AST) 33 See_Comment [Auto mated message] The system which ge nerated this result transmit dewayne reference range : <=37. The reference range was not used to interpr et this result as dallin l/abnormal. [facility] [id number] 06:06:00 Test Item Value Reference Range Interpretation Comments Total Protein (test code = Total 6.0 6.4-8.4 Protein) [facility] [id number] 06:06:00 Test Item Value Reference Range Interpretation Comments ALT (test code = ALT) 18 See_Comment [Auto mated message] The system which ge nerated this result transmit dewayne reference range : <=65. The reference range was not used to interpr et this result as dallin l/abnormal. [facility] [id number] 06:06:00 Test Item Value Reference Range Interpretation Comments A/G Ratio (test code = A/G Ratio) 0.5 1 0.7-1.6 [facility] [id number] 06:06:00 Test Item Value Reference Range Interpretation Comments Globulin (test code = Globulin) 4.1 2.7-4.2 [facility] [id number] 06:06:00 Test Item Value Reference Range Interpretation Comments Bili Total (test code = Bili Total) 0.9 0.2-1.3 [facility] [id number] 06:06:00 Test Item Value Reference Range Interpretation Comments B/C Ratio (test code = B/C Ratio) 20 1 6-25 [facility] [id number] 06:06:00 Test Item Value Reference Range Interpretation Comments Troponin-I (test code 2.18 See_Comment [Auto mated message] The = Troponin-I) system which g enerated this result transmit dewayne reference range : <=0.40. The reference r andreia was not used to interpr et this result as dallin l/abnormal. [facility] [id number] 06:06:00 Test Item Value Reference Range Interpretation Comments Alk Phos (test code = Alk Phos) 197 39-136 [facility] [id number] 06:06:00 Test Item Value Reference Range Interpretation Comments Albumin Lvl (test code = Albumin Lvl) 1.9 3.5-5.0 [facility] [id number] 06:06:00 Test Item Value Reference Range Interpretation Comments AST (test code = AST) 33 See_Comment [Auto mated message] The system which ge nerated this result transmit dewayne reference range : <=37. The reference range was not used to interpr et this result as dallin l/abnormal. [facility] [id number] 06:06:00 Test Item Value Reference Range Interpretation Comments Total Protein (test code = Total 6.0 6.4-8.4 Protein) [facility] [id number] 06:06:00 Test Item Value Reference Range Interpretation Comments ALT (test code = ALT) 18 See_Comment [Auto mated message] The system which ge nerated this result transmit dewayne reference range : <=65. The reference range was not used to interpr et this result as dallin l/abnormal. [facility] [id number] 06:06:00 Test Item Value Reference Range Interpretation Comments A/G Ratio (test code = A/G Ratio) 0.5 1 0.7-1.6 [facility] [id number] 06:06:00 Test Item Value Reference Range Interpretation Comments Globulin (test code = Globulin) 4.1 2.7-4.2 [facility] [id number] 06:06:00 Test Item Value Reference Range Interpretation Comments Bili Total (test code = Bili Total) 0.9 0.2-1.3 [facility] [id number] 06:06:00 Test Item Value Reference Range Interpretation Comments B/C Ratio (test code = B/C Ratio) 20 1 6-25 [facility] [id number] 06:06:00 Test Item Value Reference Range Interpretation Comments Troponin-I (test code 2.18 See_Comment [Auto mated message] The = Troponin-I) system which g enerated this result transmit dewayne reference range : <=0.40. The reference r andreia was not used to interpr et this result as dallin l/abnormal. [facility] [id number] 06:06:00 Test Item Value Reference Range Interpretation Comments Alk Phos (test code = Alk Phos) 197 39-136 [facility] [id number] 06:06:00 Test Item Value Reference Range Interpretation Comments Albumin Lvl (test code = Albumin Lvl) 1.9 3.5-5.0 [facility] [id number] 06:06:00 Test Item Value Reference Range Interpretation Comments AST (test code = AST) 33 See_Comment [Auto mated message] The system which ge nerated this result transmit dewayne reference range : <=37. The reference range was not used to interpr et this result as dallin l/abnormal. [facility] [id number] 06:06:00 Test Item Value Reference Range Interpretation Comments Total Protein (test code = Total 6.0 6.4-8.4 Protein) [facility]2019-06-12 06:06:00 Test Item Value Reference Range Interpretation Comments ALT (test code = ALT) 18 See_Comment [Auto mated message] The system which ge nerated this result transmit dewayne reference range : <=65. The reference range was not used to interpr et this result as dallin l/abnormal. [facility] [id number] 06:06:00 Test Item Value Reference Range Interpretation Comments A/G Ratio (test code = A/G Ratio) 0.5 1 0.7-1.6 [facility]2019-06-12 06:06:00 Test Item Value Reference Range Interpretation Comments Globulin (test code = Globulin) 4.1 2.7-4.2 [facility] [id number] 06:06:00 Test Item Value Reference Range Interpretation Comments Bili Total (test code = Bili Total) 0.9 0.2-1.3 [facility] [id number] 06:06:00 Test Item Value Reference Range Interpretation Comments B/C Ratio (test code = B/C Ratio) 20 1 6-25 [facility] [id number] 06:06:00 Test Item Value Reference Range Interpretation Comments Troponin-I (test code 2.18 See_Comment [Auto mated message] The = Troponin-I) system which g enerated this result transmit dewayne reference range : <=0.40. The reference r andreia was not used to interpr et this result as dallin l/abnormal. [facility] [id number] 06:06:00 Test Item Value Reference Range Interpretation Comments Alk Phos (test code = Alk Phos) 197 39-136 [facility] [id number] 06:06:00 Test Item Value Reference Range Interpretation Comments Albumin Lvl (test code = Albumin Lvl) 1.9 3.5-5.0 [facility] [id number] 06:06:00 Test Item Value Reference Range Interpretation Comments AST (test code = AST) 33 See_Comment [Auto mated message] The system which ge nerated this result transmit dewayne reference range : <=37. The reference range was not used to interpr et this result as dallin l/abnormal. [facility] [id number] 06:06:00 Test Item Value Reference Range Interpretation Comments Total Protein (test code = Total 6.0 6.4-8.4 Protein) [facility] [id number] 06:06:00 Test Item Value Reference Range Interpretation Comments ALT (test code = ALT) 18 See_Comment [Auto mated message] The system which ge nerated this result transmit dewayne reference range : <=65. The reference range was not used to interpr et this result as dallin l/abnormal. [facility] [id number] 06:06:00 Test Item Value Reference Range Interpretation Comments A/G Ratio (test code = A/G Ratio) 0.5 1 0.7-1.6 [facility] [id number] 06:06:00 Test Item Value Reference Range Interpretation Comments Globulin (test code = Globulin) 4.1 2.7-4.2 [facility] [id number] 06:06:00 Test Item Value Reference Range Interpretation Comments Bili Total (test code = Bili Total) 0.9 0.2-1.3 [facility] [id number] 06:06:00 Test Item Value Reference Range Interpretation Comments B/C Ratio (test code = B/C Ratio) 20 1 6-25 [facility]orxCARDIAC [id number] 06:06:00 Test Item Value Reference Range Interpretation Comments Troponin-I (test code 2.18 See_Comment [Auto mated message] The = Troponin-I) system which g enerated this result transmit dewayne reference range : <=0.40. The reference r andreia was not used to interpr et this result as dallin l/abnormal. [facility] [id number] 06:06:00 Test Item Value Reference Range Interpretation Comments Alk Phos (test code = Alk Phos) 197 39-136 [facility] [id number] 06:06:00 Test Item Value Reference Range Interpretation Comments Albumin Lvl (test code = Albumin Lvl) 1.9 3.5-5.0 [facility] [id number] 06:06:00 Test Item Value Reference Range Interpretation Comments AST (test code = AST) 33 See_Comment [Auto mated message] The system which ge nerated this result transmit dewayne reference range : <=37. The reference range was not used to interpr et this result as dallin l/abnormal. [facility] [id number] 06:06:00 Test Item Value Reference Range Interpretation Comments Total Protein (test code = Total 6.0 6.4-8.4 Protein) [facility] [id number] 06:06:00 Test Item Value Reference Range Interpretation Comments ALT (test code = ALT) 18 See_Comment [Auto mated message] The system which ge nerated this result transmit dewayne reference range : <=65. The reference range was not used to interpr et this result as dallin l/abnormal. [facility] [id number] 06:06:00 Test Item Value Reference Range Interpretation Comments A/G Ratio (test code = A/G Ratio) 0.5 1 0.7-1.6 [facility] [id number] 06:06:00 Test Item Value Reference Range Interpretation Comments Globulin (test code = Globulin) 4.1 2.7-4.2 [facility] [id number] 06:06:00 Test Item Value Reference Range Interpretation Comments Bili Total (test code = Bili Total) 0.9 0.2-1.3 [facility] [id number] 06:06:00 Test Item Value Reference Range Interpretation Comments B/C Ratio (test code = B/C Ratio) 20 1 6-25 [facility] [id number] 06:06:00 Test Item Value Reference Range Interpretation Comments Troponin-I (test code 2.18 See_Comment [Auto mated message] The = Troponin-I) system which g enerated this result transmit dewayne reference range : <=0.40. The reference r andreia was not used to interpr et this result as dallin l/abnormal. [facility] [id number] 06:06:00 Test Item Value Reference Range Interpretation Comments Alk Phos (test code = Alk Phos) 197 39-136 [facility]MashWorxRANDOLPH [id number] 06:06:00 Test Item Value Reference Range Interpretation Comments Albumin Lvl (test code = Albumin Lvl) 1.9 3.5-5.0 [facility]2019-06-12 06:06:00 Test Item Value Reference Range Interpretation Comments AST (test code = AST) 33 See_Comment [Auto mated message] The system which ge nerated this result transmit dewayne reference range : <=37. The reference range was not used to interpr et this result as dallin l/abnormal. [facility] [id number] 06:06:00 Test Item Value Reference Range Interpretation Comments Total Protein (test code = Total 6.0 6.4-8.4 Protein) [facility]2019-06-12 06:06:00 Test Item Value Reference Range Interpretation Comments ALT (test code = ALT) 18 See_Comment [Auto mated message] The system which ge nerated this result transmit dewayne reference range : <=65. The reference range was not used to interpr et this result as dallin l/abnormal. [facility] [id number] 06:06:00 Test Item Value Reference Range Interpretation Comments A/G Ratio (test code = A/G Ratio) 0.5 1 0.7-1.6 [facility]2019-06-12 06:06:00 Test Item Value Reference Range Interpretation Comments Globulin (test code = Globulin) 4.1 2.7-4.2 [facility]2019-06-12 06:06:00 Test Item Value Reference Range Interpretation Comments Bili Total (test code = Bili Total) 0.9 0.2-1.3 [facility] [id number] 06:06:00 Test Item Value Reference Range Interpretation Comments B/C Ratio (test code = B/C Ratio) 20 1 6-25 [facility] [id number] 06:06:00 Test Item Value Reference Range Interpretation Comments Troponin-I (test code 2.18 See_Comment [Auto mated message] The = Troponin-I) system which g enerated this result transmit dewayne reference range : <=0.40. The reference r andreia was not used to interpr et this result as dallin l/abnormal. [facility] [id number] 06:06:00 Test Item Value Reference Range Interpretation Comments Alk Phos (test code = Alk Phos) 197 39-136 [facility] [id number] 06:06:00 Test Item Value Reference Range Interpretation Comments Albumin Lvl (test code = Albumin Lvl) 1.9 3.5-5.0 [facility] [id number] 06:06:00 Test Item Value Reference Range Interpretation Comments AST (test code = AST) 33 See_Comment [Auto mated message] The system which ge nerated this result transmit dewayne reference range : <=37. The reference range was not used to interpr et this result as dallin l/abnormal. [facility] [id number] 06:06:00 Test Item Value Reference Range Interpretation Comments Total Protein (test code = Total 6.0 6.4-8.4 Protein) [facility] [id number] 06:06:00 Test Item Value Reference Range Interpretation Comments ALT (test code = ALT) 18 See_Comment [Auto mated message] The system which ge nerated this result transmit dewayne reference range : <=65. The reference range was not used to interpr et this result as dallin l/abnormal. [facility] [id number] 06:06:00 Test Item Value Reference Range Interpretation Comments A/G Ratio (test code = A/G Ratio) 0.5 1 0.7-1.6 [facility] [id number] 06:06:00 Test Item Value Reference Range Interpretation Comments Globulin (test code = Globulin) 4.1 2.7-4.2 [facility] [id number] 06:06:00 Test Item Value Reference Range Interpretation Comments Bili Total (test code = Bili Total) 0.9 0.2-1.3 [facility] [id number] 06:06:00 Test Item Value Reference Range Interpretation Comments B/C Ratio (test code = B/C Ratio) 20 1 6-25 [facility] [id number] 06:06:00 Test Item Value Reference Range Interpretation Comments Troponin-I (test code 2.18 See_Comment [Auto mated message] The = Troponin-I) system which g enerated this result transmit dewayne reference range : <=0.40. The reference r andreia was not used to interpr et this result as dallin l/abnormal. [facility] [id number] 06:06:00 Test Item Value Reference Range Interpretation Comments Alk Phos (test code = Alk Phos) 197 39-136 [facility] [id number] 06:06:00 Test Item Value Reference Range Interpretation Comments Albumin Lvl (test code = Albumin Lvl) 1.9 3.5-5.0 [facility] [id number] 06:06:00 Test Item Value Reference Range Interpretation Comments AST (test code = AST) 33 See_Comment [Auto mated message] The system which ge nerated this result transmit dewayne reference range : <=37. The reference range was not used to interpr et this result as dallin l/abnormal. [facility] [id number] 06:06:00 Test Item Value Reference Range Interpretation Comments Total Protein (test code = Total 6.0 6.4-8.4 Protein) [facility] [id number] 06:06:00 Test Item Value Reference Range Interpretation Comments ALT (test code = ALT) 18 See_Comment [Auto mated message] The system which ge nerated this result transmit dewayne reference range : <=65. The reference range was not used to interpr et this result as dallin l/abnormal. [facility] [id number] 06:06:00 Test Item Value Reference Range Interpretation Comments A/G Ratio (test code = A/G Ratio) 0.5 1 0.7-1.6 [facility] [id number] 06:06:00 Test Item Value Reference Range Interpretation Comments Globulin (test code = Globulin) 4.1 2.7-4.2 [facility] [id number] 06:06:00 Test Item Value Reference Range Interpretation Comments Bili Total (test code = Bili Total) 0.9 0.2-1.3 [facility] [id number] 06:06:00 Test Item Value Reference Range Interpretation Comments B/C Ratio (test code = B/C Ratio) 20 1 6-25 [facility] [id number] 06:06:00 Test Item Value Reference Range Interpretation Comments Troponin-I (test code 2.18 See_Comment [Auto mated message] The = Troponin-I) system which g enerated this result transmit dewayne reference range : <=0.40. The reference r andreia was not used to interpr et this result as dallin l/abnormal. [facility]2019-06-12 06:06:00 Test Item Value Reference Range Interpretation Comments Alk Phos (test code = Alk Phos) 197 39-136 [facility]2019-06-12 06:06:00 Test Item Value Reference Range Interpretation Comments Albumin Lvl (test code = Albumin Lvl) 1.9 3.5-5.0 [facility]2019-06-12 06:06:00 Test Item Value Reference Range Interpretation Comments AST (test code = AST) 33 See_Comment [Auto mated message] The system which ge nerated this result transmit dewayne reference range : <=37. The reference range was not used to interpr et this result as dallin l/abnormal. [facility]2019-06-12 06:06:00 Test Item Value Reference Range Interpretation Comments Total Protein (test code = Total 6.0 6.4-8.4 Protein) [facility]2019-06-12 06:06:00 Test Item Value Reference Range Interpretation Comments ALT (test code = ALT) 18 See_Comment [Auto mated message] The system which ge nerated this result transmit dewayne reference range : <=65. The reference range was not used to interpr et this result as dallin l/abnormal. [facility] [id number] 06:06:00 Test Item Value Reference Range Interpretation Comments A/G Ratio (test code = A/G Ratio) 0.5 1 0.7-1.6 [facility] [id number] 06:06:00 Test Item Value Reference Range Interpretation Comments Globulin (test code = Globulin) 4.1 2.7-4.2 [facility] [id number] 06:06:00 Test Item Value Reference Range Interpretation Comments Bili Total (test code = Bili Total) 0.9 0.2-1.3 [facility] [id number] 06:06:00 Test Item Value Reference Range Interpretation Comments B/C Ratio (test code = B/C Ratio) 20 1 6-25 [facility] [id number] 06:06:00 Test Item Value Reference Range Interpretation Comments Troponin-I (test code 2.18 See_Comment [Auto mated message] The = Troponin-I) system which g enerated this result transmit dewayne reference range : <=0.40. The reference r andreia was not used to interpr et this result as dallin l/abnormal. [facility] [id number] 06:06:00 Test Item Value Reference Range Interpretation Comments Alk Phos (test code = Alk Phos) 197 39-136 [facility] [id number] 06:06:00 Test Item Value Reference Range Interpretation Comments Albumin Lvl (test code = Albumin Lvl) 1.9 3.5-5.0 [facility] [id number] 06:06:00 Test Item Value Reference Range Interpretation Comments AST (test code = AST) 33 See_Comment [Auto mated message] The system which ge nerated this result transmit dewayne reference range : <=37. The reference range was not used to interpr et this result as dallin l/abnormal. [facility] [id number] 06:06:00 Test Item Value Reference Range Interpretation Comments Total Protein (test code = Total 6.0 6.4-8.4 Protein) [facility] [id number] 06:06:00 Test Item Value Reference Range Interpretation Comments ALT (test code = ALT) 18 See_Comment [Auto mated message] The system which ge nerated this result transmit dewayne reference range : <=65. The reference range was not used to interpr et this result as dallin l/abnormal. [facility] [id number] 06:06:00 Test Item Value Reference Range Interpretation Comments A/G Ratio (test code = A/G Ratio) 0.5 1 0.7-1.6 [facility] [id number] 06:06:00 Test Item Value Reference Range Interpretation Comments Globulin (test code = Globulin) 4.1 2.7-4.2 [facility] [id number] 06:06:00 Test Item Value Reference Range Interpretation Comments Bili Total (test code = Bili Total) 0.9 0.2-1.3 [facility] [id number] 06:06:00 Test Item Value Reference Range Interpretation Comments B/C Ratio (test code = B/C Ratio) 20 1 6-25 [facility] [id number] 06:06:00 Test Item Value Reference Range Interpretation Comments Troponin-I (test code 2.18 See_Comment [Auto mated message] The = Troponin-I) system which g enerated this result transmit dewayne reference range : <=0.40. The reference r andreia was not used to interpr et this result as dallin l/abnormal. [facility] [id number] 06:06:00 Test Item Value Reference Range Interpretation Comments Alk Phos (test code = Alk Phos) 197 39-136 [facility] [id number] 06:06:00 Test Item Value Reference Range Interpretation Comments Albumin Lvl (test code = Albumin Lvl) 1.9 3.5-5.0 [facility] [id number] 06:06:00 Test Item Value Reference Range Interpretation Comments AST (test code = AST) 33 See_Comment [Auto mated message] The system which ge nerated this result transmit dewayne reference range : <=37. The reference range was not used to interpr et this result as dallin l/abnormal. [facility] [id number] 06:06:00 Test Item Value Reference Range Interpretation Comments Total Protein (test code = Total 6.0 6.4-8.4 Protein) [facility] [id number] 06:06:00 Test Item Value Reference Range Interpretation Comments ALT (test code = ALT) 18 See_Comment [Auto mated message] The system which ge nerated this result transmit dewayne reference range : <=65. The reference range was not used to interpr et this result as dallin l/abnormal. [facility] [id number] 06:06:00 Test Item Value Reference Range Interpretation Comments A/G Ratio (test code = A/G Ratio) 0.5 1 0.7-1.6 [facility]2019-06-12 06:06:00 Test Item Value Reference Range Interpretation Comments Globulin (test code = Globulin) 4.1 2.7-4.2 [facility]2019-06-12 06:06:00 Test Item Value Reference Range Interpretation Comments Bili Total (test code = Bili Total) 0.9 0.2-1.3 [facility] [id number] 06:06:00 Test Item Value Reference Range Interpretation Comments B/C Ratio (test code = B/C Ratio) 20 1 6-25 [id number] 03:29:00 Test Item Value Reference Range Interpretation Comments Vanco Tr TND (test code = Vanco Tr 2300 1 TND) [facility] [id number] 03:29:00 Test Item Value Reference Range Interpretation Comments Vanco Tr (test code = Vanco Tr) 21.5 [facility] [id number] 03:29:00 Test Item Value Reference Range Interpretation Comments Vanco Tr TND (test code = Vanco Tr 2300 1 TND) [facility] [id number] 03:29:00 Test Item Value Reference Range Interpretation Comments Vanco Tr (test code = Vanco Tr) 21.5 [facility] Hos[id number] 03:29:00 Test Item Value Reference Range Interpretation Comments Vanco Tr TND (test code = Vanco Tr 2300 1 TND) [facility] [id number] 03:29:00 Test Item Value Reference Range Interpretation Comments Vanco Tr (test code = Vanco Tr) 21.5 [facility] [id number] 03:29:00 Test Item Value Reference Range Interpretation Comments Vanco Tr TND (test code = Vanco Tr 2300 1 TND) [facility] [id number] 03:29:00 Test Item Value Reference Range Interpretation Comments Vanco Tr (test code = Vanco Tr) 21.5 [facility] [id number] 03:29:00 Test Item Value Reference Range Interpretation Comments Vanco Tr TND (test code = Vanco Tr 2300 1 TND) [facility] H[id number] 03:29:00 Test Item Value Reference Range Interpretation Comments Vanco Tr (test code = Vanco Tr) 21.5 [facility] H[id number] 03:29:00 Test Item Value Reference Range Interpretation Comments Vanco Tr TND (test code = Vanco Tr 2300 1 TND) [facility] Hos[id number] 03:29:00 Test Item Value Reference Range Interpretation Comments Vanco Tr (test code = Vanco Tr) 21.5 [facility] Hos[id number] 03:29:00 Test Item Value Reference Range Interpretation Comments Vanco Tr TND (test code = Vanco Tr 2300 1 TND) [facility] H[id number] 03:29:00 Test Item Value Reference Range Interpretation Comments Vanco Tr (test code = Vanco Tr) 21.5 [facility] HospitalSzzxdbeEPTGAOWQTY8009-29-82 03:29:00 Test Item Value Reference Range Interpretation Comments Vanco Tr TND (test code = Vanco Tr 2300 1 TND) [id number] 03:29:00 Test Item Value Reference Range Interpretation Comments Vanco Tr (test code = Vanco Tr) 21.5 [facility] Ho[id number] 03:29:00 Test Item Value Reference Range Interpretation Comments Vanco Tr TND (test code = Vanco Tr 2300 1 TND) [facility] H[id number] 03:29:00 Test Item Value Reference Range Interpretation Comments Vanco Tr (test code = Vanco Tr) 21.5 [facility] HospitalKuoimubBWFGAVUQSI4434-63-48 03:29:00 Test Item Value Reference Range Interpretation Comments Vanco Tr TND (test code = Vanco Tr 2300 1 TND) [facility] H[id number] 03:29:00 Test Item Value Reference Range Interpretation Comments Vanco Tr (test code = Vanco Tr) 21.5 [facility] HospitalHadphthSTUYMLPJDG8371-93-90 03:29:00 Test Item Value Reference Range Interpretation Comments Vanco Tr TND (test code = Vanco Tr 2300 1 TND) [facility] Hospit[id number] 03:29:00 Test Item Value Reference Range Interpretation Comments Vanco Tr (test code = Vanco Tr) 21.5 [facility] HospitalUihtqabUDNCZEVVWK2243-40-15 03:29:00 Test Item Value Reference Range Interpretation Comments Vanco Tr TND (test code = Vanco Tr 2300 1 TND) [facility] Hos[id number] 03:29:00 Test Item Value Reference Range Interpretation Comments Vanco Tr (test code = Vanco Tr) 21.5 [facility] HospitalCsatgabLIZUHUHLTP2103-03-20 03:29:00 Test Item Value Reference Range Interpretation Comments Vanco Tr TND (test code = Vanco Tr 2300 1 TND) [facility] HospitalTwmuusbZSUHYJREAB8215-35-00 03:29:00 Test Item Value Reference Range Interpretation Comments Vanco Tr (test code = Vanco Tr) 21.5 [facility] HospitalEjapxqaPAOUNJNPYD9964-38-84 03:29:00 Test Item Value Reference Range Interpretation Comments Vanco Tr TND (test code = Vanco Tr 2300 1 TND) [facility] HospitalSdymrulVBPPUNRMNZ5782-86-59 03:29:00 Test Item Value Reference Range Interpretation Comments Vanco Tr (test code = Vanco Tr) 21.5 [facility] HospitalBnzrlhsBGVVOBRBBP3247-68-29 03:29:00 Test Item Value Reference Range Interpretation Comments Vanco Tr TND (test code = Vanco Tr 2300 1 TND) [facility] HospitalJufakkiGHXDGLEKKG2236-78-49 03:29:00 Test Item Value Reference Range Interpretation Comments Vanco Tr (test code = Vanco Tr) 21.5 [facility] HospitalBpnjeweRESDDKKKVP5013-07-28 03:29:00 Test Item Value Reference Range Interpretation Comments Vanco Tr TND (test code = Vanco Tr 2300 1 TND) [facility] HospitalJvxpyleVGCPRWJCFS6394-28-73 03:29:00 Test Item Value Reference Range Interpretation Comments Vanco Tr (test code = Vanco Tr) 21.5 [facility] [id number] 03:29:00 Test Item Value Reference Range Interpretation Comments Vanco Tr TND (test code = Vanco Tr 2300 1 TND) [facility] HospitalIclvnisIDICNIUPTN9113-02-69 03:29:00 Test Item Value Reference Range Interpretation Comments Vanco Tr (test code = Vanco Tr) 21.5 [facility] [id number] 03:29:00 Test Item Value Reference Range Interpretation Comments Vanco Tr TND (test code = Vanco Tr 2300 1 TND) [id number] 03:29:00 Test Item Value Reference Range Interpretation Comments Vanco Tr (test code = Vanco Tr) 21.5 [facility] V[id number] 03:29:00 Test Item Value Reference Range Interpretation Comments Vanco Tr TND (test code = Vanco Tr 2300 1 TND) [id number] 03:29:00 Test Item Value Reference Range Interpretation Comments Vanco Tr (test code = Vanco Tr) 21.5 [facility] [id number] 03:29:00 Test Item Value Reference Range Interpretation Comments Vanco Tr TND (test code = Vanco Tr 2300 1 TND) [id number] 03:29:00 Test Item Value Reference Range Interpretation Comments Vanco Tr (test code = Vanco Tr) 21.5 [id number] 03:29:00 Test Item Value Reference Range Interpretation Comments Vanco Tr TND (test code = Vanco Tr 2300 1 TND) [id number] 03:29:00 Test Item Value Reference Range Interpretation Comments Vanco Tr (test code = Vanco Tr) 21.5 [id number] 03:29:00 Test Item Value Reference Range Interpretation Comments Vanco Tr TND (test code = Vanco Tr 2300 1 TND) [facility]ZpsxsctGSIAZVYIZM3799-01-20 03:29:00 Test Item Value Reference Range Interpretation Comments Vanco Tr (test code = Vanco Tr) 21.5 [facility] [id number] 03:29:00 Test Item Value Reference Range Interpretation Comments Vanco Tr TND (test code = Vanco Tr 2300 1 TND) [id number] 03:29:00 Test Item Value Reference Range Interpretation Comments Vanco Tr (test code = Vanco Tr) 21.5 [id number] 03:29:00 Test Item Value Reference Range Interpretation Comments Vanco Tr TND (test code = Vanco Tr 2300 1 TND) [facility]E[id number] 03:29:00 Test Item Value Reference Range Interpretation Comments Vanco Tr (test code = Vanco Tr) 21.5 [facility] HospitalN[id number] 03:29:00 Test Item Value Reference Range Interpretation Comments Vanco Tr TND (test code = Vanco Tr 2300 1 TND) [facility] HospitalWnlhranITZSHHAXID2046-11-87 03:29:00 Test Item Value Reference Range Interpretation Comments Vanco Tr (test code = Vanco Tr) 21.5 [facility] Hospit[id number] 03:29:00 Test Item Value Reference Range Interpretation Comments Vanco Tr TND (test code = Vanco Tr 2300 1 TND) [facility] Ho[id number] 03:29:00 Test Item Value Reference Range Interpretation Comments Vanco Tr (test code = Vanco Tr) 21.5 [facility] Hospit[id number] 03:29:00 Test Item Value Reference Range Interpretation Comments Vanco Tr TND (test code = Vanco Tr 2300 1 TND) [facility] Hospit[id number] 03:29:00 Test Item Value Reference Range Interpretation Comments Vanco Tr (test code = Vanco Tr) 21.5 [facility] HospitalannWYLECULAR [id number] 14:56:00 Test Item Value Reference Range Interpretation Comments Source Adenovirus PCR [employer] Swab (test code = Source (02/23/19 9:56 AM) Adenovirus PCR) [facility]2019-06-11 14:56:00 Test Item Value Reference Range Interpretation Comments Adenovirus PCR (test Negative (02/23/19 code = Adenovirus PCR) 9:56 AM) [facility]2019-06-11 14:56:00 Test Item Value Reference Range Interpretation Comments Parainfluenza 3 PCR (test Negative (02/23/19 code = Parainfluenza 3 9:56 AM) PCR) [facility]2019-06-11 14:56:00 Test Item Value Reference Range Interpretation Comments Parainfluenza 2 PCR (test Negative (02/23/19 code = Parainfluenza 2 9:56 AM) PCR) [facility]2019-06-11 14:56:00 Test Item Value Reference Range Interpretation Comments Parainfluenza 1 PCR (test Negative (02/23/19 code = Parainfluenza 1 9:56 AM) PCR) [facility]2019-06-11 14:56:00 Test Item Value Reference Range Interpretation Comments Source Parainfluenza Virus [employer] Swab PCR (test code = Source (02/23/19 9:56 AM) Parainfluenza Virus PCR) [facility]2019-06-11 14:56:00 Test Item Value Reference Range Interpretation Comments Influenza A PCR (test Negative (02/23/19 9:56 code = Influenza A PCR) AM) [facility]2019-06-11 14:56:00 Test Item Value Reference Range Interpretation Comments Influenza B PCR (test Negative (02/23/19 9:56 code = Influenza B PCR) AM) [facility]2019-06-11 14:56:00 Test Item Value Reference Range Interpretation Comments RSV PCR (test code = Negative (02/23/19 9:56 RSV PCR) AM) [facility]2019-06-11 14:56:00 Test Item Value Reference Range Interpretation Comments Source Respiratory Panel [employer] Swab PCR (test code = Source (02/23/19 9:56 AM) Respiratory Panel PCR) [facility]2019-06-11 14:56:00 Test Item Value Reference Range Interpretation Comments Source Adenovirus PCR [employer] Swab (test code = Source (02/23/19 9:56 AM) Adenovirus PCR) [facility]2019-06-11 14:56:00 Test Item Value Reference Range Interpretation Comments Adenovirus PCR (test Negative (02/23/19 code = Adenovirus PCR) 9:56 AM) [facility]2019-06-11 14:56:00 Test Item Value Reference Range Interpretation Comments Parainfluenza 3 PCR (test Negative (02/23/19 code = Parainfluenza 3 9:56 AM) PCR) [facility]2019-06-11 14:56:00 Test Item Value Reference Range Interpretation Comments Parainfluenza 2 PCR (test Negative (02/23/19 code = Parainfluenza 2 9:56 AM) PCR) [facility]2019-06-11 14:56:00 Test Item Value Reference Range Interpretation Comments Parainfluenza 1 PCR (test Negative (02/23/19 code = Parainfluenza 1 9:56 AM) PCR) [facility]2019-06-11 14:56:00 Test Item Value Reference Range Interpretation Comments Source Parainfluenza Virus [employer] Swab PCR (test code = Source (02/23/19 9:56 AM) Parainfluenza Virus PCR) [facility]2019-06-11 14:56:00 Test Item Value Reference Range Interpretation Comments Influenza A PCR (test Negative (02/23/19 9:56 code = Influenza A PCR) AM) [facility]2019-06-11 14:56:00 Test Item Value Reference Range Interpretation Comments Influenza B PCR (test Negative (02/23/19 9:56 code = Influenza B PCR) AM) [facility]2019-06-11 14:56:00 Test Item Value Reference Range Interpretation Comments RSV PCR (test code = Negative (02/23/19 9:56 RSV PCR) AM) [facility]2019-06-11 14:56:00 Test Item Value Reference Range Interpretation Comments Source Respiratory Panel [employer] Swab PCR (test code = Source (02/23/19 9:56 AM) Respiratory Panel PCR) [facility]2019-06-11 14:56:00 Test Item Value Reference Range Interpretation Comments Source Adenovirus PCR [employer] Swab (test code = Source (02/23/19 9:56 AM) Adenovirus PCR) [facility]2019-06-11 14:56:00 Test Item Value Reference Range Interpretation Comments Adenovirus PCR (test Negative (02/23/19 code = Adenovirus PCR) 9:56 AM) [facility]2019-06-11 14:56:00 Test Item Value Reference Range Interpretation Comments Parainfluenza 3 PCR (test Negative (02/23/19 code = Parainfluenza 3 9:56 AM) PCR) [facility]2019-06-11 14:56:00 Test Item Value Reference Range Interpretation Comments Parainfluenza 2 PCR (test Negative (02/23/19 code = Parainfluenza 2 9:56 AM) PCR) [facility]2019-06-11 14:56:00 Test Item Value Reference Range Interpretation Comments Parainfluenza 1 PCR (test Negative (02/23/19 code = Parainfluenza 1 9:56 AM) PCR) [facility]2019-06-11 14:56:00 Test Item Value Reference Range Interpretation Comments Source Parainfluenza Virus [employer] Swab PCR (test code = Source (02/23/19 9:56 AM) Parainfluenza Virus PCR) [facility]2019-06-11 14:56:00 Test Item Value Reference Range Interpretation Comments Influenza A PCR (test Negative (02/23/19 9:56 code = Influenza A PCR) AM) [facility]2019-06-11 14:56:00 Test Item Value Reference Range Interpretation Comments Influenza B PCR (test Negative (02/23/19 9:56 code = Influenza B PCR) AM) [facility]2019-06-11 14:56:00 Test Item Value Reference Range Interpretation Comments RSV PCR (test code = Negative (02/23/19 9:56 RSV PCR) AM) [facility]2019-06-11 14:56:00 Test Item Value Reference Range Interpretation Comments Source Respiratory Panel [employer] Swab PCR (test code = Source (02/23/19 9:56 AM) Respiratory Panel PCR) [facility]2019-06-11 14:56:00 Test Item Value Reference Range Interpretation Comments Source Adenovirus PCR [employer] Swab (test code = Source (02/23/19 9:56 AM) Adenovirus PCR) [facility]2019-06-11 14:56:00 Test Item Value Reference Range Interpretation Comments Adenovirus PCR (test Negative (02/23/19 code = Adenovirus PCR) 9:56 AM) [facility]2019-06-11 14:56:00 Test Item Value Reference Range Interpretation Comments Parainfluenza 3 PCR (test Negative (02/23/19 code = Parainfluenza 3 9:56 AM) PCR) [facility]2019-06-11 14:56:00 Test Item Value Reference Range Interpretation Comments Parainfluenza 2 PCR (test Negative (02/23/19 code = Parainfluenza 2 9:56 AM) PCR) [facility]2019-06-11 14:56:00 Test Item Value Reference Range Interpretation Comments Parainfluenza 1 PCR (test Negative (02/23/19 code = Parainfluenza 1 9:56 AM) PCR) [facility]2019-06-11 14:56:00 Test Item Value Reference Range Interpretation Comments Source Parainfluenza Virus [employer] Swab PCR (test code = Source (02/23/19 9:56 AM) Parainfluenza Virus PCR) [facility]2019-06-11 14:56:00 Test Item Value Reference Range Interpretation Comments Influenza A PCR (test Negative (02/23/19 9:56 code = Influenza A PCR) AM) [facility]2019-06-11 14:56:00 Test Item Value Reference Range Interpretation Comments Influenza B PCR (test Negative (02/23/19 9:56 code = Influenza B PCR) AM) [facility]2019-06-11 14:56:00 Test Item Value Reference Range Interpretation Comments RSV PCR (test code = Negative (02/23/19 9:56 RSV PCR) AM) [facility]2019-06-11 14:56:00 Test Item Value Reference Range Interpretation Comments Source Respiratory Panel [employer] Swab PCR (test code = Source (02/23/19 9:56 AM) Respiratory Panel PCR) [facility]2019-06-11 14:56:00 Test Item Value Reference Range Interpretation Comments Source Adenovirus PCR [employer] Swab (test code = Source (02/23/19 9:56 AM) Adenovirus PCR) [facility]2019-06-11 14:56:00 Test Item Value Reference Range Interpretation Comments Adenovirus PCR (test Negative (02/23/19 code = Adenovirus PCR) 9:56 AM) [facility]2019-06-11 14:56:00 Test Item Value Reference Range Interpretation Comments Parainfluenza 3 PCR (test Negative (02/23/19 code = Parainfluenza 3 9:56 AM) PCR) [facility]2019-06-11 14:56:00 Test Item Value Reference Range Interpretation Comments Parainfluenza 2 PCR (test Negative (02/23/19 code = Parainfluenza 2 9:56 AM) PCR) [facility]2019-06-11 14:56:00 Test Item Value Reference Range Interpretation Comments Parainfluenza 1 PCR (test Negative (02/23/19 code = Parainfluenza 1 9:56 AM) PCR) [facility]2019-06-11 14:56:00 Test Item Value Reference Range Interpretation Comments Source Parainfluenza Virus [employer] Swab PCR (test code = Source (02/23/19 9:56 AM) Parainfluenza Virus PCR) [facility]2019-06-11 14:56:00 Test Item Value Reference Range Interpretation Comments Influenza A PCR (test Negative (02/23/19 9:56 code = Influenza A PCR) AM) [facility]2019-06-11 14:56:00 Test Item Value Reference Range Interpretation Comments Influenza B PCR (test Negative (02/23/19 9:56 code = Influenza B PCR) AM) [facility]2019-06-11 14:56:00 Test Item Value Reference Range Interpretation Comments RSV PCR (test code = Negative (02/23/19 9:56 RSV PCR) AM) [facility]2019-06-11 14:56:00 Test Item Value Reference Range Interpretation Comments Source Respiratory Panel [employer] Swab PCR (test code = Source (02/23/19 9:56 AM) Respiratory Panel PCR) [facility]2019-06-11 14:56:00 Test Item Value Reference Range Interpretation Comments Source Adenovirus PCR [employer] Swab (test code = Source (02/23/19 9:56 AM) Adenovirus PCR) [facility]2019-06-11 14:56:00 Test Item Value Reference Range Interpretation Comments Adenovirus PCR (test Negative (02/23/19 code = Adenovirus PCR) 9:56 AM) [facility]2019-06-11 14:56:00 Test Item Value Reference Range Interpretation Comments Parainfluenza 3 PCR (test Negative (02/23/19 code = Parainfluenza 3 9:56 AM) PCR) [facility]2019-06-11 14:56:00 Test Item Value Reference Range Interpretation Comments Parainfluenza 2 PCR (test Negative (02/23/19 code = Parainfluenza 2 9:56 AM) PCR) [facility]2019-06-11 14:56:00 Test Item Value Reference Range Interpretation Comments Parainfluenza 1 PCR (test Negative (02/23/19 code = Parainfluenza 1 9:56 AM) PCR) [facility]2019-06-11 14:56:00 Test Item Value Reference Range Interpretation Comments Source Parainfluenza Virus [employer] Swab PCR (test code = Source (02/23/19 9:56 AM) Parainfluenza Virus PCR) [facility]2019-06-11 14:56:00 Test Item Value Reference Range Interpretation Comments Influenza A PCR (test Negative (02/23/19 9:56 code = Influenza A PCR) AM) [facility]2019-06-11 14:56:00 Test Item Value Reference Range Interpretation Comments Influenza B PCR (test Negative (02/23/19 9:56 code = Influenza B PCR) AM) [facility]2019-06-11 14:56:00 Test Item Value Reference Range Interpretation Comments RSV PCR (test code = Negative (02/23/19 9:56 RSV PCR) AM) [facility]2019-06-11 14:56:00 Test Item Value Reference Range Interpretation Comments Source Respiratory Panel [employer] Swab PCR (test code = Source (02/23/19 9:56 AM) Respiratory Panel PCR) [facility]2019-06-11 14:56:00 Test Item Value Reference Range Interpretation Comments Source Adenovirus PCR [employer] Swab (test code = Source (02/23/19 9:56 AM) Adenovirus PCR) [facility]2019-06-11 14:56:00 Test Item Value Reference Range Interpretation Comments Adenovirus PCR (test Negative (02/23/19 code = Adenovirus PCR) 9:56 AM) [facility]2019-06-11 14:56:00 Test Item Value Reference Range Interpretation Comments Parainfluenza 3 PCR (test Negative (02/23/19 code = Parainfluenza 3 9:56 AM) PCR) [facility]2019-06-11 14:56:00 Test Item Value Reference Range Interpretation Comments Parainfluenza 2 PCR (test Negative (02/23/19 code = Parainfluenza 2 9:56 AM) PCR) [facility]2019-06-11 14:56:00 Test Item Value Reference Range Interpretation Comments Parainfluenza 1 PCR (test Negative (02/23/19 code = Parainfluenza 1 9:56 AM) PCR) [facility]2019-06-11 14:56:00 Test Item Value Reference Range Interpretation Comments Source Parainfluenza Virus [employer] Swab PCR (test code = Source (02/23/19 9:56 AM) Parainfluenza Virus PCR) [facility]2019-06-11 14:56:00 Test Item Value Reference Range Interpretation Comments Influenza A PCR (test Negative (02/23/19 9:56 code = Influenza A PCR) AM) [facility]2019-06-11 14:56:00 Test Item Value Reference Range Interpretation Comments Influenza B PCR (test Negative (02/23/19 9:56 code = Influenza B PCR) AM) [facility]2019-06-11 14:56:00 Test Item Value Reference Range Interpretation Comments RSV PCR (test code = Negative (02/23/19 9:56 RSV PCR) AM) [facility]2019-06-11 14:56:00 Test Item Value Reference Range Interpretation Comments Source Respiratory Panel [employer] Swab PCR (test code = Source (02/23/19 9:56 AM) Respiratory Panel PCR) [facility]2019-06-11 14:56:00 Test Item Value Reference Range Interpretation Comments Source Adenovirus PCR [employer] Swab (test code = Source (02/23/19 9:56 AM) Adenovirus PCR) [facility]2019-06-11 14:56:00 Test Item Value Reference Range Interpretation Comments Adenovirus PCR (test Negative (02/23/19 code = Adenovirus PCR) 9:56 AM) [facility]2019-06-11 14:56:00 Test Item Value Reference Range Interpretation Comments Parainfluenza 3 PCR (test Negative (02/23/19 code = Parainfluenza 3 9:56 AM) PCR) [facility]2019-06-11 14:56:00 Test Item Value Reference Range Interpretation Comments Parainfluenza 2 PCR (test Negative (02/23/19 code = Parainfluenza 2 9:56 AM) PCR) [facility]2019-06-11 14:56:00 Test Item Value Reference Range Interpretation Comments Parainfluenza 1 PCR (test Negative (02/23/19 code = Parainfluenza 1 9:56 AM) PCR) [facility]2019-06-11 14:56:00 Test Item Value Reference Range Interpretation Comments Source Parainfluenza Virus [employer] Swab PCR (test code = Source (02/23/19 9:56 AM) Parainfluenza Virus PCR) [facility]2019-06-11 14:56:00 Test Item Value Reference Range Interpretation Comments Influenza A PCR (test Negative (02/23/19 9:56 code = Influenza A PCR) AM) [facility]2019-06-11 14:56:00 Test Item Value Reference Range Interpretation Comments Influenza B PCR (test Negative (02/23/19 9:56 code = Influenza B PCR) AM) [facility]2019-06-11 14:56:00 Test Item Value Reference Range Interpretation Comments RSV PCR (test code = Negative (02/23/19 9:56 RSV PCR) AM) [facility]2019-06-11 14:56:00 Test Item Value Reference Range Interpretation Comments Source Respiratory Panel [employer] Swab PCR (test code = Source (02/23/19 9:56 AM) Respiratory Panel PCR) [facility]2019-06-11 14:56:00 Test Item Value Reference Range Interpretation Comments Source Adenovirus PCR [employer] Swab (test code = Source (02/23/19 9:56 AM) Adenovirus PCR) [facility]2019-06-11 14:56:00 Test Item Value Reference Range Interpretation Comments Adenovirus PCR (test Negative (02/23/19 code = Adenovirus PCR) 9:56 AM) [facility]2019-06-11 14:56:00 Test Item Value Reference Range Interpretation Comments Parainfluenza 3 PCR (test Negative (02/23/19 code = Parainfluenza 3 9:56 AM) PCR) [facility]2019-06-11 14:56:00 Test Item Value Reference Range Interpretation Comments Parainfluenza 2 PCR (test Negative (02/23/19 code = Parainfluenza 2 9:56 AM) PCR) [facility]2019-06-11 14:56:00 Test Item Value Reference Range Interpretation Comments Parainfluenza 1 PCR (test Negative (02/23/19 code = Parainfluenza 1 9:56 AM) PCR) [facility]2019-06-11 14:56:00 Test Item Value Reference Range Interpretation Comments Source Parainfluenza Virus [employer] Swab PCR (test code = Source (02/23/19 9:56 AM) Parainfluenza Virus PCR) [facility]2019-06-11 14:56:00 Test Item Value Reference Range Interpretation Comments Influenza A PCR (test Negative (02/23/19 9:56 code = Influenza A PCR) AM) [facility]2019-06-11 14:56:00 Test Item Value Reference Range Interpretation Comments Influenza B PCR (test Negative (02/23/19 9:56 code = Influenza B PCR) AM) [facility]2019-06-11 14:56:00 Test Item Value Reference Range Interpretation Comments RSV PCR (test code = Negative (02/23/19 9:56 RSV PCR) AM) [facility]2019-06-11 14:56:00 Test Item Value Reference Range Interpretation Comments Source Respiratory Panel [employer] Swab PCR (test code = Source (02/23/19 9:56 AM) Respiratory Panel PCR) [facility]2019-06-11 14:56:00 Test Item Value Reference Range Interpretation Comments Source Adenovirus PCR [employer] Swab (test code = Source (02/23/19 9:56 AM) Adenovirus PCR) [facility]2019-06-11 14:56:00 Test Item Value Reference Range Interpretation Comments Adenovirus PCR (test Negative (02/23/19 code = Adenovirus PCR) 9:56 AM) [facility]2019-06-11 14:56:00 Test Item Value Reference Range Interpretation Comments Parainfluenza 3 PCR (test Negative (02/23/19 code = Parainfluenza 3 9:56 AM) PCR) [facility]2019-06-11 14:56:00 Test Item Value Reference Range Interpretation Comments Parainfluenza 2 PCR (test Negative (02/23/19 code = Parainfluenza 2 9:56 AM) PCR) [facility]2019-06-11 14:56:00 Test Item Value Reference Range Interpretation Comments Parainfluenza 1 PCR (test Negative (02/23/19 code = Parainfluenza 1 9:56 AM) PCR) [facility]2019-06-11 14:56:00 Test Item Value Reference Range Interpretation Comments Source Parainfluenza Virus [employer] Swab PCR (test code = Source (02/23/19 9:56 AM) Parainfluenza Virus PCR) [facility]2019-06-11 14:56:00 Test Item Value Reference Range Interpretation Comments Influenza A PCR (test Negative (02/23/19 9:56 code = Influenza A PCR) AM) [facility]2019-06-11 14:56:00 Test Item Value Reference Range Interpretation Comments Influenza B PCR (test Negative (02/23/19 9:56 code = Influenza B PCR) AM) [facility]2019-06-11 14:56:00 Test Item Value Reference Range Interpretation Comments RSV PCR (test code = Negative (02/23/19 9:56 RSV PCR) AM) [facility]2019-06-11 14:56:00 Test Item Value Reference Range Interpretation Comments Source Respiratory Panel [employer] Swab PCR (test code = Source (02/23/19 9:56 AM) Respiratory Panel PCR) [facility]2019-06-11 14:56:00 Test Item Value Reference Range Interpretation Comments Source Adenovirus PCR [employer] Swab (test code = Source (02/23/19 9:56 AM) Adenovirus PCR) [facility]2019-06-11 14:56:00 Test Item Value Reference Range Interpretation Comments Adenovirus PCR (test Negative (02/23/19 code = Adenovirus PCR) 9:56 AM) [facility]2019-06-11 14:56:00 Test Item Value Reference Range Interpretation Comments Parainfluenza 3 PCR (test Negative (02/23/19 code = Parainfluenza 3 9:56 AM) PCR) [facility]2019-06-11 14:56:00 Test Item Value Reference Range Interpretation Comments Parainfluenza 2 PCR (test Negative (02/23/19 code = Parainfluenza 2 9:56 AM) PCR) [facility]2019-06-11 14:56:00 Test Item Value Reference Range Interpretation Comments Parainfluenza 1 PCR (test Negative (02/23/19 code = Parainfluenza 1 9:56 AM) PCR) [facility]2019-06-11 14:56:00 Test Item Value Reference Range Interpretation Comments Source Parainfluenza Virus [employer] Swab PCR (test code = Source (02/23/19 9:56 AM) Parainfluenza Virus PCR) [facility]2019-06-11 14:56:00 Test Item Value Reference Range Interpretation Comments Influenza A PCR (test Negative (02/23/19 9:56 code = Influenza A PCR) AM) [facility]2019-06-11 14:56:00 Test Item Value Reference Range Interpretation Comments Influenza B PCR (test Negative (02/23/19 9:56 code = Influenza B PCR) AM) [facility]2019-06-11 14:56:00 Test Item Value Reference Range Interpretation Comments RSV PCR (test code = Negative (02/23/19 9:56 RSV PCR) AM) [facility]2019-06-11 14:56:00 Test Item Value Reference Range Interpretation Comments Source Respiratory Panel [employer] Swab PCR (test code = Source (02/23/19 9:56 AM) Respiratory Panel PCR) [facility]2019-06-11 14:56:00 Test Item Value Reference Range Interpretation Comments Source Adenovirus PCR [employer] Swab (test code = Source (02/23/19 9:56 AM) Adenovirus PCR) [facility]2019-06-11 14:56:00 Test Item Value Reference Range Interpretation Comments Adenovirus PCR (test Negative (02/23/19 code = Adenovirus PCR) 9:56 AM) [facility]2019-06-11 14:56:00 Test Item Value Reference Range Interpretation Comments Parainfluenza 3 PCR (test Negative (02/23/19 code = Parainfluenza 3 9:56 AM) PCR) [facility]2019-06-11 14:56:00 Test Item Value Reference Range Interpretation Comments Parainfluenza 2 PCR (test Negative (02/23/19 code = Parainfluenza 2 9:56 AM) PCR) [facility]2019-06-11 14:56:00 Test Item Value Reference Range Interpretation Comments Parainfluenza 1 PCR (test Negative (02/23/19 code = Parainfluenza 1 9:56 AM) PCR) [facility]2019-06-11 14:56:00 Test Item Value Reference Range Interpretation Comments Source Parainfluenza Virus [employer] Swab PCR (test code = Source (02/23/19 9:56 AM) Parainfluenza Virus PCR) [facility]2019-06-11 14:56:00 Test Item Value Reference Range Interpretation Comments Influenza A PCR (test Negative (02/23/19 9:56 code = Influenza A PCR) AM) [facility]2019-06-11 14:56:00 Test Item Value Reference Range Interpretation Comments Influenza B PCR (test Negative (02/23/19 9:56 code = Influenza B PCR) AM) [facility]2019-06-11 14:56:00 Test Item Value Reference Range Interpretation Comments RSV PCR (test code = Negative (02/23/19 9:56 RSV PCR) AM) [facility]2019-06-11 14:56:00 Test Item Value Reference Range Interpretation Comments Source Respiratory Panel [employer] Swab PCR (test code = Source (02/23/19 9:56 AM) Respiratory Panel PCR) [facility]2019-06-11 14:56:00 Test Item Value Reference Range Interpretation Comments Source Adenovirus PCR [employer] Swab (test code = Source (02/23/19 9:56 AM) Adenovirus PCR) [facility]2019-06-11 14:56:00 Test Item Value Reference Range Interpretation Comments Adenovirus PCR (test Negative (02/23/19 code = Adenovirus PCR) 9:56 AM) [facility]2019-06-11 14:56:00 Test Item Value Reference Range Interpretation Comments Parainfluenza 3 PCR (test Negative (02/23/19 code = Parainfluenza 3 9:56 AM) PCR) [facility]2019-06-11 14:56:00 Test Item Value Reference Range Interpretation Comments Parainfluenza 2 PCR (test Negative (02/23/19 code = Parainfluenza 2 9:56 AM) PCR) [facility]2019-06-11 14:56:00 Test Item Value Reference Range Interpretation Comments Parainfluenza 1 PCR (test Negative (02/23/19 code = Parainfluenza 1 9:56 AM) PCR) [facility]2019-06-11 14:56:00 Test Item Value Reference Range Interpretation Comments Source Parainfluenza Virus [employer] Swab PCR (test code = Source (02/23/19 9:56 AM) Parainfluenza Virus PCR) [facility]2019-06-11 14:56:00 Test Item Value Reference Range Interpretation Comments Influenza A PCR (test Negative (02/23/19 9:56 code = Influenza A PCR) AM) [facility]2019-06-11 14:56:00 Test Item Value Reference Range Interpretation Comments Influenza B PCR (test Negative (02/23/19 9:56 code = Influenza B PCR) AM) [facility]2019-06-11 14:56:00 Test Item Value Reference Range Interpretation Comments RSV PCR (test code = Negative (02/23/19 9:56 RSV PCR) AM) [facility]2019-06-11 14:56:00 Test Item Value Reference Range Interpretation Comments Source Respiratory Panel [employer] Swab PCR (test code = Source (02/23/19 9:56 AM) Respiratory Panel PCR) [facility]2019-06-11 14:56:00 Test Item Value Reference Range Interpretation Comments Source Adenovirus PCR [employer] Swab (test code = Source (02/23/19 9:56 AM) Adenovirus PCR) [facility]2019-06-11 14:56:00 Test Item Value Reference Range Interpretation Comments Adenovirus PCR (test Negative (02/23/19 code = Adenovirus PCR) 9:56 AM) [facility]2019-06-11 14:56:00 Test Item Value Reference Range Interpretation Comments Parainfluenza 3 PCR (test Negative (02/23/19 code = Parainfluenza 3 9:56 AM) PCR) [facility]2019-06-11 14:56:00 Test Item Value Reference Range Interpretation Comments Parainfluenza 2 PCR (test Negative (02/23/19 code = Parainfluenza 2 9:56 AM) PCR) [facility]2019-06-11 14:56:00 Test Item Value Reference Range Interpretation Comments Parainfluenza 1 PCR (test Negative (02/23/19 code = Parainfluenza 1 9:56 AM) PCR) [facility]2019-06-11 14:56:00 Test Item Value Reference Range Interpretation Comments Source Parainfluenza Virus [employer] Swab PCR (test code = Source (02/23/19 9:56 AM) Parainfluenza Virus PCR) [facility]2019-06-11 14:56:00 Test Item Value Reference Range Interpretation Comments Influenza A PCR (test Negative (02/23/19 9:56 code = Influenza A PCR) AM) [facility]2019-06-11 14:56:00 Test Item Value Reference Range Interpretation Comments Influenza B PCR (test Negative (02/23/19 9:56 code = Influenza B PCR) AM) [facility]2019-06-11 14:56:00 Test Item Value Reference Range Interpretation Comments RSV PCR (test code = Negative (02/23/19 9:56 RSV PCR) AM) [facility]2019-06-11 14:56:00 Test Item Value Reference Range Interpretation Comments Source Respiratory Panel [employer] Swab PCR (test code = Source (02/23/19 9:56 AM) Respiratory Panel PCR) [facility]2019-06-11 14:56:00 Test Item Value Reference Range Interpretation Comments Source Adenovirus PCR [employer] Swab (test code = Source (02/23/19 9:56 AM) Adenovirus PCR) [facility]2019-06-11 14:56:00 Test Item Value Reference Range Interpretation Comments Adenovirus PCR (test Negative (02/23/19 code = Adenovirus PCR) 9:56 AM) [facility]2019-06-11 14:56:00 Test Item Value Reference Range Interpretation Comments Parainfluenza 3 PCR (test Negative (02/23/19 code = Parainfluenza 3 9:56 AM) PCR) [facility]2019-06-11 14:56:00 Test Item Value Reference Range Interpretation Comments Parainfluenza 2 PCR (test Negative (02/23/19 code = Parainfluenza 2 9:56 AM) PCR) [facility]2019-06-11 14:56:00 Test Item Value Reference Range Interpretation Comments Parainfluenza 1 PCR (test Negative (02/23/19 code = Parainfluenza 1 9:56 AM) PCR) [facility]2019-06-11 14:56:00 Test Item Value Reference Range Interpretation Comments Source Parainfluenza Virus [employer] Swab PCR (test code = Source (02/23/19 9:56 AM) Parainfluenza Virus PCR) [facility]2019-06-11 14:56:00 Test Item Value Reference Range Interpretation Comments Influenza A PCR (test Negative (02/23/19 9:56 code = Influenza A PCR) AM) [facility]2019-06-11 14:56:00 Test Item Value Reference Range Interpretation Comments Influenza B PCR (test Negative (02/23/19 9:56 code = Influenza B PCR) AM) [facility]2019-06-11 14:56:00 Test Item Value Reference Range Interpretation Comments RSV PCR (test code = Negative (02/23/19 9:56 RSV PCR) AM) [facility]2019-06-11 14:56:00 Test Item Value Reference Range Interpretation Comments Source Respiratory Panel [employer] Swab PCR (test code = Source (02/23/19 9:56 AM) Respiratory Panel PCR) [facility]2019-06-11 14:56:00 Test Item Value Reference Range Interpretation Comments Source Adenovirus PCR [employer] Swab (test code = Source (02/23/19 9:56 AM) Adenovirus PCR) [facility]2019-06-11 14:56:00 Test Item Value Reference Range Interpretation Comments Adenovirus PCR (test Negative (02/23/19 code = Adenovirus PCR) 9:56 AM) [facility]2019-06-11 14:56:00 Test Item Value Reference Range Interpretation Comments Parainfluenza 3 PCR (test Negative (02/23/19 code = Parainfluenza 3 9:56 AM) PCR) [facility]2019-06-11 14:56:00 Test Item Value Reference Range Interpretation Comments Parainfluenza 2 PCR (test Negative (02/23/19 code = Parainfluenza 2 9:56 AM) PCR) [facility] [id number] 14:56:00 Test Item Value Reference Range Interpretation Comments Parainfluenza 1 PCR (test Negative (02/23/19 code = Parainfluenza 1 9:56 AM) PCR) [facility]2019-06-11 14:56:00 Test Item Value Reference Range Interpretation Comments Source Parainfluenza Virus [employer] Swab PCR (test code = Source (02/23/19 9:56 AM) Parainfluenza Virus PCR) [facility]2019-06-11 14:56:00 Test Item Value Reference Range Interpretation Comments Influenza A PCR (test Negative (02/23/19 9:56 code = Influenza A PCR) AM) [facility]2019-06-11 14:56:00 Test Item Value Reference Range Interpretation Comments Influenza B PCR (test Negative (02/23/19 9:56 code = Influenza B PCR) AM) [facility]2019-06-11 14:56:00 Test Item Value Reference Range Interpretation Comments RSV PCR (test code = Negative (02/23/19 9:56 RSV PCR) AM) [facility]2019-06-11 14:56:00 Test Item Value Reference Range Interpretation Comments Source Respiratory Panel [employer] Swab PCR (test code = Source (02/23/19 9:56 AM) Respiratory Panel PCR) [facility]2019-06-11 14:56:00 Test Item Value Reference Range Interpretation Comments Source Adenovirus PCR [employer] Swab (test code = Source (02/23/19 9:56 AM) Adenovirus PCR) [facility]2019-06-11 14:56:00 Test Item Value Reference Range Interpretation Comments Adenovirus PCR (test Negative (02/23/19 code = Adenovirus PCR) 9:56 AM) [facility]2019-06-11 14:56:00 Test Item Value Reference Range Interpretation Comments Parainfluenza 3 PCR (test Negative (02/23/19 code = Parainfluenza 3 9:56 AM) PCR) [facility]2019-06-11 14:56:00 Test Item Value Reference Range Interpretation Comments Parainfluenza 2 PCR (test Negative (02/23/19 code = Parainfluenza 2 9:56 AM) PCR) [facility]2019-06-11 14:56:00 Test Item Value Reference Range Interpretation Comments Parainfluenza 1 PCR (test Negative (02/23/19 code = Parainfluenza 1 9:56 AM) PCR) [facility]2019-06-11 14:56:00 Test Item Value Reference Range Interpretation Comments Source Parainfluenza Virus [employer] Swab PCR (test code = Source (02/23/19 9:56 AM) Parainfluenza Virus PCR) [facility]2019-06-11 14:56:00 Test Item Value Reference Range Interpretation Comments Influenza A PCR (test Negative (02/23/19 9:56 code = Influenza A PCR) AM) [facility]2019-06-11 14:56:00 Test Item Value Reference Range Interpretation Comments Influenza B PCR (test Negative (02/23/19 9:56 code = Influenza B PCR) AM) [facility]2019-06-11 14:56:00 Test Item Value Reference Range Interpretation Comments RSV PCR (test code = Negative (02/23/19 9:56 RSV PCR) AM) [facility]2019-06-11 14:56:00 Test Item Value Reference Range Interpretation Comments Source Respiratory Panel [employer] Swab PCR (test code = Source (02/23/19 9:56 AM) Respiratory Panel PCR) [facility]2019-06-11 14:56:00 Test Item Value Reference Range Interpretation Comments Source Adenovirus PCR [employer] Swab (test code = Source (02/23/19 9:56 AM) Adenovirus PCR) [facility]2019-06-11 14:56:00 Test Item Value Reference Range Interpretation Comments Adenovirus PCR (test Negative (02/23/19 code = Adenovirus PCR) 9:56 AM) [facility]2019-06-11 14:56:00 Test Item Value Reference Range Interpretation Comments Parainfluenza 3 PCR (test Negative (02/23/19 code = Parainfluenza 3 9:56 AM) PCR) [facility]2019-06-11 14:56:00 Test Item Value Reference Range Interpretation Comments Parainfluenza 2 PCR (test Negative (02/23/19 code = Parainfluenza 2 9:56 AM) PCR) [facility]2019-06-11 14:56:00 Test Item Value Reference Range Interpretation Comments Parainfluenza 1 PCR (test Negative (02/23/19 code = Parainfluenza 1 9:56 AM) PCR) [facility]2019-06-11 14:56:00 Test Item Value Reference Range Interpretation Comments Source Parainfluenza Virus [employer] Swab PCR (test code = Source (02/23/19 9:56 AM) Parainfluenza Virus PCR) [facility]2019-06-11 14:56:00 Test Item Value Reference Range Interpretation Comments Influenza A PCR (test Negative (02/23/19 9:56 code = Influenza A PCR) AM) [facility]2019-06-11 14:56:00 Test Item Value Reference Range Interpretation Comments Influenza B PCR (test Negative (02/23/19 9:56 code = Influenza B PCR) AM) [facility]2019-06-11 14:56:00 Test Item Value Reference Range Interpretation Comments RSV PCR (test code = Negative (02/23/19 9:56 RSV PCR) AM) [facility]2019-06-11 14:56:00 Test Item Value Reference Range Interpretation Comments Source Respiratory Panel [employer] Swab PCR (test code = Source (02/23/19 9:56 AM) Respiratory Panel PCR) [facility]2019-06-11 14:56:00 Test Item Value Reference Range Interpretation Comments Source Adenovirus PCR [employer] Swab (test code = Source (02/23/19 9:56 AM) Adenovirus PCR) [facility]2019-06-11 14:56:00 Test Item Value Reference Range Interpretation Comments Adenovirus PCR (test Negative (02/23/19 code = Adenovirus PCR) 9:56 AM) [facility]2019-06-11 14:56:00 Test Item Value Reference Range Interpretation Comments Parainfluenza 3 PCR (test Negative (02/23/19 code = Parainfluenza 3 9:56 AM) PCR) [facility] [id number] 14:56:00 Test Item Value Reference Range Interpretation Comments Parainfluenza 2 PCR (test Negative (02/23/19 code = Parainfluenza 2 9:56 AM) PCR) [facility]2019-06-11 14:56:00 Test Item Value Reference Range Interpretation Comments Parainfluenza 1 PCR (test Negative (02/23/19 code = Parainfluenza 1 9:56 AM) PCR) [facility]2019-06-11 14:56:00 Test Item Value Reference Range Interpretation Comments Source Parainfluenza Virus [employer] Swab PCR (test code = Source (02/23/19 9:56 AM) Parainfluenza Virus PCR) [facility]2019-06-11 14:56:00 Test Item Value Reference Range Interpretation Comments Influenza A PCR (test Negative (02/23/19 9:56 code = Influenza A PCR) AM) [facility]2019-06-11 14:56:00 Test Item Value Reference Range Interpretation Comments Influenza B PCR (test Negative (02/23/19 9:56 code = Influenza B PCR) AM) [facility]2019-06-11 14:56:00 Test Item Value Reference Range Interpretation Comments RSV PCR (test code = Negative (02/23/19 9:56 RSV PCR) AM) [facility]2019-06-11 14:56:00 Test Item Value Reference Range Interpretation Comments Source Respiratory Panel [employer] Swab PCR (test code = Source (02/23/19 9:56 AM) Respiratory Panel PCR) [facility]2019-06-11 14:56:00 Test Item Value Reference Range Interpretation Comments Source Adenovirus PCR [employer] Swab (test code = Source (02/23/19 9:56 AM) Adenovirus PCR) [facility]2019-06-11 14:56:00 Test Item Value Reference Range Interpretation Comments Adenovirus PCR (test Negative (02/23/19 code = Adenovirus PCR) 9:56 AM) [facility]2019-06-11 14:56:00 Test Item Value Reference Range Interpretation Comments Parainfluenza 3 PCR (test Negative (02/23/19 code = Parainfluenza 3 9:56 AM) PCR) [facility]2019-06-11 14:56:00 Test Item Value Reference Range Interpretation Comments Parainfluenza 2 PCR (test Negative (02/23/19 code = Parainfluenza 2 9:56 AM) PCR) [facility]2019-06-11 14:56:00 Test Item Value Reference Range Interpretation Comments Parainfluenza 1 PCR (test Negative (02/23/19 code = Parainfluenza 1 9:56 AM) PCR) [facility]2019-06-11 14:56:00 Test Item Value Reference Range Interpretation Comments Source Parainfluenza Virus [employer] Swab PCR (test code = Source (02/23/19 9:56 AM) Parainfluenza Virus PCR) [facility]2019-06-11 14:56:00 Test Item Value Reference Range Interpretation Comments Influenza A PCR (test Negative (02/23/19 9:56 code = Influenza A PCR) AM) [facility]2019-06-11 14:56:00 Test Item Value Reference Range Interpretation Comments Influenza B PCR (test Negative (02/23/19 9:56 code = Influenza B PCR) AM) [facility]2019-06-11 14:56:00 Test Item Value Reference Range Interpretation Comments RSV PCR (test code = Negative (02/23/19 9:56 RSV PCR) AM) [facility]2019-06-11 14:56:00 Test Item Value Reference Range Interpretation Comments Source Respiratory Panel [employer] Swab PCR (test code = Source (02/23/19 9:56 AM) Respiratory Panel PCR) [facility]2019-06-11 14:56:00 Test Item Value Reference Range Interpretation Comments Source Adenovirus PCR [employer] Swab (test code = Source (02/23/19 9:56 AM) Adenovirus PCR) [facility]2019-06-11 14:56:00 Test Item Value Reference Range Interpretation Comments Adenovirus PCR (test Negative (02/23/19 code = Adenovirus PCR) 9:56 AM) [facility]2019-06-11 14:56:00 Test Item Value Reference Range Interpretation Comments Parainfluenza 3 PCR (test Negative (02/23/19 code = Parainfluenza 3 9:56 AM) PCR) [facility]2019-06-11 14:56:00 Test Item Value Reference Range Interpretation Comments Parainfluenza 2 PCR (test Negative (02/23/19 code = Parainfluenza 2 9:56 AM) PCR) [facility]2019-06-11 14:56:00 Test Item Value Reference Range Interpretation Comments Parainfluenza 1 PCR (test Negative (02/23/19 code = Parainfluenza 1 9:56 AM) PCR) [facility]2019-06-11 14:56:00 Test Item Value Reference Range Interpretation Comments Source Parainfluenza Virus [employer] Swab PCR (test code = Source (02/23/19 9:56 AM) Parainfluenza Virus PCR) [facility]2019-06-11 14:56:00 Test Item Value Reference Range Interpretation Comments Influenza A PCR (test Negative (02/23/19 9:56 code = Influenza A PCR) AM) [facility]2019-06-11 14:56:00 Test Item Value Reference Range Interpretation Comments Influenza B PCR (test Negative (02/23/19 9:56 code = Influenza B PCR) AM) [facility]2019-06-11 14:56:00 Test Item Value Reference Range Interpretation Comments RSV PCR (test code = Negative (02/23/19 9:56 RSV PCR) AM) [facility]2019-06-11 14:56:00 Test Item Value Reference Range Interpretation Comments Source Respiratory Panel [employer] Swab PCR (test code = Source (02/23/19 9:56 AM) Respiratory Panel PCR) [facility]2019-06-11 14:56:00 Test Item Value Reference Range Interpretation Comments Source Adenovirus PCR [employer] Swab (test code = Source (02/23/19 9:56 AM) Adenovirus PCR) [facility]2019-06-11 14:56:00 Test Item Value Reference Range Interpretation Comments Adenovirus PCR (test Negative (02/23/19 code = Adenovirus PCR) 9:56 AM) [facility]2019-06-11 14:56:00 Test Item Value Reference Range Interpretation Comments Parainfluenza 3 PCR (test Negative (02/23/19 code = Parainfluenza 3 9:56 AM) PCR) [facility]2019-06-11 14:56:00 Test Item Value Reference Range Interpretation Comments Parainfluenza 2 PCR (test Negative (02/23/19 code = Parainfluenza 2 9:56 AM) PCR) [facility]2019-06-11 14:56:00 Test Item Value Reference Range Interpretation Comments Parainfluenza 1 PCR (test Negative (02/23/19 code = Parainfluenza 1 9:56 AM) PCR) [facility]2019-06-11 14:56:00 Test Item Value Reference Range Interpretation Comments Source Parainfluenza Virus [employer] Swab PCR (test code = Source (02/23/19 9:56 AM) Parainfluenza Virus PCR) [facility]2019-06-11 14:56:00 Test Item Value Reference Range Interpretation Comments Influenza A PCR (test Negative (02/23/19 9:56 code = Influenza A PCR) AM) [facility]2019-06-11 14:56:00 Test Item Value Reference Range Interpretation Comments Influenza B PCR (test Negative (02/23/19 9:56 code = Influenza B PCR) AM) [facility]2019-06-11 14:56:00 Test Item Value Reference Range Interpretation Comments RSV PCR (test code = Negative (02/23/19 9:56 RSV PCR) AM) [facility]2019-06-11 14:56:00 Test Item Value Reference Range Interpretation Comments Source Respiratory Panel [employer] Swab PCR (test code = Source (02/23/19 9:56 AM) Respiratory Panel PCR) [facility]2019-06-11 14:56:00 Test Item Value Reference Range Interpretation Comments Source Adenovirus PCR [employer] Swab (test code = Source (02/23/19 9:56 AM) Adenovirus PCR) [facility]2019-06-11 14:56:00 Test Item Value Reference Range Interpretation Comments Adenovirus PCR (test Negative (02/23/19 code = Adenovirus PCR) 9:56 AM) [facility]2019-06-11 14:56:00 Test Item Value Reference Range Interpretation Comments Parainfluenza 3 PCR (test Negative (02/23/19 code = Parainfluenza 3 9:56 AM) PCR) [facility]2019-06-11 14:56:00 Test Item Value Reference Range Interpretation Comments Parainfluenza 2 PCR (test Negative (02/23/19 code = Parainfluenza 2 9:56 AM) PCR) [facility]2019-06-11 14:56:00 Test Item Value Reference Range Interpretation Comments Parainfluenza 1 PCR (test Negative (02/23/19 code = Parainfluenza 1 9:56 AM) PCR) [facility]2019-06-11 14:56:00 Test Item Value Reference Range Interpretation Comments Source Parainfluenza Virus [employer] Swab PCR (test code = Source (02/23/19 9:56 AM) Parainfluenza Virus PCR) [facility]2019-06-11 14:56:00 Test Item Value Reference Range Interpretation Comments Influenza A PCR (test Negative (02/23/19 9:56 code = Influenza A PCR) AM) [facility]2019-06-11 14:56:00 Test Item Value Reference Range Interpretation Comments Influenza B PCR (test Negative (02/23/19 9:56 code = Influenza B PCR) AM) [facility]2019-06-11 14:56:00 Test Item Value Reference Range Interpretation Comments RSV PCR (test code = Negative (02/23/19 9:56 RSV PCR) AM) [facility]2019-06-11 14:56:00 Test Item Value Reference Range Interpretation Comments Source Respiratory Panel Fl[employer] Swab PCR (test code = Source (02/23/19 9:56 AM) Respiratory Panel PCR) [facility] [facility] 14:[facility]00 Test Item Value Reference Range Interpretation Comments Source Adenovirus PCR [employer] Swab (test code = Source (02/23/19 9:56 AM) Adenovirus PCR) [facility]2019-06-11 14:56:00 Test Item Value Reference Range Interpretation Comments Adenovirus PCR (test Negative (02/23/19 code = Adenovirus PCR) 9:56 AM) [facility]2019-06-11 14:56:00 Test Item Value Reference Range Interpretation Comments Parainfluenza 3 PCR (test Negative (02/23/19 code = Parainfluenza 3 9:56 AM) PCR) [facility]2019-06-11 14:56:00 Test Item Value Reference Range Interpretation Comments Parainfluenza 2 PCR (test Negative (02/23/19 code = Parainfluenza 2 9:56 AM) PCR) [facility]2019-06-11 14:56:00 Test Item Value Reference Range Interpretation Comments Parainfluenza 1 PCR (test Negative (02/23/19 code = Parainfluenza 1 9:56 AM) PCR) [facility]2019-06-11 14:56:00 Test Item Value Reference Range Interpretation Comments Source Parainfluenza Virus [employer] Swab PCR (test code = Source (02/23/19 9:56 AM) Parainfluenza Virus PCR) [facility]2019-06-11 14:56:00 Test Item Value Reference Range Interpretation Comments Influenza A PCR (test Negative (02/23/19 9:56 code = Influenza A PCR) AM) [facility]2019-06-11 14:56:00 Test Item Value Reference Range Interpretation Comments Influenza B PCR (test Negative (02/23/19 9:56 code = Influenza B PCR) AM) [facility]2019-06-11 14:56:00 Test Item Value Reference Range Interpretation Comments RSV PCR (test code = Negative (02/23/19 9:56 RSV PCR) AM) [facility]2019-06-11 14:56:00 Test Item Value Reference Range Interpretation Comments Source Respiratory Panel [employer] Swab PCR (test code = Source (02/23/19 9:56 AM) Respiratory Panel PCR) [facility]2019-06-11 14:56:00 Test Item Value Reference Range Interpretation Comments Source Adenovirus PCR [employer] Swab (test code = Source (02/23/19 9:56 AM) Adenovirus PCR) [facility]2019-06-11 14:56:00 Test Item Value Reference Range Interpretation Comments Adenovirus PCR (test Negative (02/23/19 code = Adenovirus PCR) 9:56 AM) [facility]2019-06-11 14:56:00 Test Item Value Reference Range Interpretation Comments Parainfluenza 3 PCR (test Negative (02/23/19 code = Parainfluenza 3 9:56 AM) PCR) [facility]2019-06-11 14:56:00 Test Item Value Reference Range Interpretation Comments Parainfluenza 2 PCR (test Negative (02/23/19 code = Parainfluenza 2 9:56 AM) PCR) [facility]2019-06-11 14:56:00 Test Item Value Reference Range Interpretation Comments Parainfluenza 1 PCR (test Negative (02/23/19 code = Parainfluenza 1 9:56 AM) PCR) [facility]2019-06-11 14:56:00 Test Item Value Reference Range Interpretation Comments Source Parainfluenza Virus [employer] Swab PCR (test code = Source (02/23/19 9:56 AM) Parainfluenza Virus PCR) [facility]2019-06-11 14:56:00 Test Item Value Reference Range Interpretation Comments Influenza A PCR (test Negative (02/23/19 9:56 code = Influenza A PCR) AM) [facility]2019-06-11 14:56:00 Test Item Value Reference Range Interpretation Comments Influenza B PCR (test Negative (02/23/19 9:56 code = Influenza B PCR) AM) [facility]2019-06-11 14:56:00 Test Item Value Reference Range Interpretation Comments RSV PCR (test code = Negative (02/23/19 9:56 RSV PCR) AM) [facility]2019-06-11 14:56:00 Test Item Value Reference Range Interpretation Comments Source Respiratory Panel [employer] Swab PCR (test code = Source (02/23/19 9:56 AM) Respiratory Panel PCR) [facility]2019-06-11 14:56:00 Test Item Value Reference Range Interpretation Comments Source Adenovirus PCR [employer] Swab (test code = Source (02/23/19 9:56 AM) Adenovirus PCR) [facility]2019-06-11 14:56:00 Test Item Value Reference Range Interpretation Comments Adenovirus PCR (test Negative (02/23/19 code = Adenovirus PCR) 9:56 AM) [facility]2019-06-11 14:56:00 Test Item Value Reference Range Interpretation Comments Parainfluenza 3 PCR (test Negative (02/23/19 code = Parainfluenza 3 9:56 AM) PCR) [facility]2019-06-11 14:56:00 Test Item Value Reference Range Interpretation Comments Parainfluenza 2 PCR (test Negative (02/23/19 code = Parainfluenza 2 9:56 AM) PCR) [facility]2019-06-11 14:56:00 Test Item Value Reference Range Interpretation Comments Parainfluenza 1 PCR (test Negative (02/23/19 code = Parainfluenza 1 9:56 AM) PCR) [facility]2019-06-11 14:56:00 Test Item Value Reference Range Interpretation Comments Source Parainfluenza Virus [employer] Swab PCR (test code = Source (02/23/19 9:56 AM) Parainfluenza Virus PCR) [facility]2019-06-11 14:56:00 Test Item Value Reference Range Interpretation Comments Influenza A PCR (test Negative (02/23/19 9:56 code = Influenza A PCR) AM) [facility]2019-06-11 14:56:00 Test Item Value Reference Range Interpretation Comments Influenza B PCR (test Negative (02/23/19 9:56 code = Influenza B PCR) AM) [facility]2019-06-11 14:56:00 Test Item Value Reference Range Interpretation Comments RSV PCR (test code = Negative (02/23/19 9:56 RSV PCR) AM) [facility]2019-06-11 14:56:00 Test Item Value Reference Range Interpretation Comments Source Respiratory Panel [employer] Swab PCR (test code = Source (02/23/19 9:56 AM) Respiratory Panel PCR) [facility]2019-06-11 14:56:00 Test Item Value Reference Range Interpretation Comments Source Adenovirus PCR [employer] Swab (test code = Source (02/23/19 9:56 AM) Adenovirus PCR) [facility]2019-06-11 14:56:00 Test Item Value Reference Range Interpretation Comments Adenovirus PCR (test Negative (02/23/19 code = Adenovirus PCR) 9:56 AM) [facility]2019-06-11 14:56:00 Test Item Value Reference Range Interpretation Comments Parainfluenza 3 PCR (test Negative (02/23/19 code = Parainfluenza 3 9:56 AM) PCR) [facility]2019-06-11 14:56:00 Test Item Value Reference Range Interpretation Comments Parainfluenza 2 PCR (test Negative (02/23/19 code = Parainfluenza 2 9:56 AM) PCR) [facility]2019-06-11 14:56:00 Test Item Value Reference Range Interpretation Comments Parainfluenza 1 PCR (test Negative (02/23/19 code = Parainfluenza 1 9:56 AM) PCR) [facility]2019-06-11 14:56:00 Test Item Value Reference Range Interpretation Comments Source Parainfluenza Virus [employer] Swab PCR (test code = Source (02/23/19 9:56 AM) Parainfluenza Virus PCR) [facility]2019-06-11 14:56:00 Test Item Value Reference Range Interpretation Comments Influenza A PCR (test Negative (02/23/19 9:56 code = Influenza A PCR) AM) [facility]2019-06-11 14:56:00 Test Item Value Reference Range Interpretation Comments Influenza B PCR (test Negative (02/23/19 9:56 code = Influenza B PCR) AM) [facility]2019-06-11 14:56:00 Test Item Value Reference Range Interpretation Comments RSV PCR (test code = Negative (02/23/19 9:56 RSV PCR) AM) [id number] 14:56:00 Test Item Value Reference Range Interpretation Comments Source Respiratory Panel [employer] Swab PCR (test code = Source (02/23/19 9:56 AM) Respiratory Panel PCR) [facility] [id number] 08:59:00 Test Item Value Reference Range Interpretation Comments Troponin-I (test code = Troponin-I) 2.54 <=0.40 [facility] [id number] 08:59:00 Test Item Value Reference Range Interpretation Comments Alk Phos (test code = Alk Phos) 231 39-136 [facility] [id number] 08:59:00 Test Item Value Reference Range Interpretation Comments Bili Total (test code = Bili Total) 0.8 0.2-1.3 [facility] [id number] 08:59:00 Test Item Value Reference Range Interpretation Comments AST (test code = AST) 41 <=37 [facility] [id number] 08:59:00 Test Item Value Reference Range Interpretation Comments ALT (test code = ALT) 22 <=65 [facility] [id number] 08:59:00 Test Item Value Reference Range Interpretation Comments Albumin Lvl (test code = Albumin Lvl) 1.9 3.5-5.0 [facility] [id number] 08:59:00 Test Item Value Reference Range Interpretation Comments Total Protein (test code = Total 6.0 6.4-8.4 Protein) [facility] [id number] 08:59:00 Test Item Value Reference Range Interpretation Comments A/G Ratio (test code = A/G Ratio) 0.5 1 0.7-1.6 [facility] [id number] 08:59:00 Test Item Value Reference Range Interpretation Comments Globulin (test code = Globulin) 4.1 2.7-4.2 [facility] [id number] 08:59:00 Test Item Value Reference Range Interpretation Comments B/C Ratio (test code = B/C Ratio) 26 1 6-25 [id number] 08:59:00 Test Item Value Reference Range Interpretation Comments Basophils # (test code = Basophils #) 0.1 <=0.2 [facility] [id number] 08:59:00 Test Item Value Reference Range Interpretation Comments Troponin-I (test code 2.54 See_Comment [Auto mated message] The = Troponin-I) system which g enerated this result transmit dewayne reference range : <=0.40. The reference r andreia was not used to interpr et this result as dallin l/abnormal. [facility]2019-06-11 08:59:00 Test Item Value Reference Range Interpretation Comments Alk Phos (test code = Alk Phos) 231 39-136 [facility]2019-06-11 08:59:00 Test Item Value Reference Range Interpretation Comments Bili Total (test code = Bili Total) 0.8 0.2-1.3 [facility]2019-06-11 08:59:00 Test Item Value Reference Range Interpretation Comments AST (test code = AST) 41 See_Comment [Auto mated message] The system which ge nerated this result transmit dewayne reference range : <=37. The reference range was not used to interpr et this result as dallin l/abnormal. [facility]2019-06-11 08:59:00 Test Item Value Reference Range Interpretation Comments ALT (test code = ALT) 22 See_Comment [Auto mated message] The system which ge nerated this result transmit dewyane reference range : <=65. The reference range was not used to interpr et this result as dallin l/abnormal. [facility]2019-06-11 08:59:00 Test Item Value Reference Range Interpretation Comments Albumin Lvl (test code = Albumin Lvl) 1.9 3.5-5.0 [facility]2019-06-11 08:59:00 Test Item Value Reference Range Interpretation Comments Total Protein (test code = Total 6.0 6.4-8.4 Protein) [facility]2019-06-11 08:59:00 Test Item Value Reference Range Interpretation Comments A/G Ratio (test code = A/G Ratio) 0.5 1 0.7-1.6 [facility]2019-06-11 08:59:00 Test Item Value Reference Range Interpretation Comments Globulin (test code = Globulin) 4.1 2.7-4.2 [facility] [id number] 08:59:00 Test Item Value Reference Range Interpretation Comments B/C Ratio (test code = B/C Ratio) 26 1 6-25 [facility] [id number] 08:59:00 Test Item Value Reference Range Interpretation Comments Basophils # (test code 0.1 See_Comment [Aut omated message] The = Basophils #) system which generated this result tra nsmitted reference range : <=0.2. The reference r andreia was not used to int erpret this result as normal/abnormal . [facility] [id number] 08:59:00 Test Item Value Reference Range Interpretation Comments Troponin-I (test code 2.54 See_Comment [Auto mated message] The = Troponin-I) system which g enerated this result transmit dewayne reference range : <=0.40. The reference r andreia was not used to interpr et this result as dallin l/abnormal. [facility]2019-06-11 08:59:00 Test Item Value Reference Range Interpretation Comments Alk Phos (test code = Alk Phos) 231 39-136 [facility]2019-06-11 08:59:00 Test Item Value Reference Range Interpretation Comments Bili Total (test code = Bili Total) 0.8 0.2-1.3 [facility]2019-06-11 08:59:00 Test Item Value Reference Range Interpretation Comments AST (test code = AST) 41 See_Comment [Auto mated message] The system which ge nerated this result transmit dewayne reference range : <=37. The reference range was not used to interpr et this result as dallin l/abnormal. [facility] [id number] 08:59:00 Test Item Value Reference Range Interpretation Comments ALT (test code = ALT) 22 See_Comment [Auto mated message] The system which ge nerated this result transmit dewayne reference range : <=65. The reference range was not used to interpr et this result as dallin l/abnormal. [facility] [id number] 08:59:00 Test Item Value Reference Range Interpretation Comments Albumin Lvl (test code = Albumin Lvl) 1.9 3.5-5.0 [facility]2019-06-11 08:59:00 Test Item Value Reference Range Interpretation Comments Total Protein (test code = Total 6.0 6.4-8.4 Protein) [facility]2019-06-11 08:59:00 Test Item Value Reference Range Interpretation Comments A/G Ratio (test code = A/G Ratio) 0.5 1 0.7-1.6 [facility]2019-06-11 08:59:00 Test Item Value Reference Range Interpretation Comments Globulin (test code = Globulin) 4.1 2.7-4.2 [facility]2019-06-11 08:59:00 Test Item Value Reference Range Interpretation Comments B/C Ratio (test code = B/C Ratio) 26 1 6-25 [id number] 08:59:00 Test Item Value Reference Range Interpretation Comments Basophils # (test code 0.1 See_Comment [Aut omated message] The = Basophils #) system which generated this result tra nsmitted reference range : <=0.2. The reference r andreia was not used to int erpret this result as normal/abnormal . [facility] [id number] 08:59:00 Test Item Value Reference Range Interpretation Comments Troponin-I (test code 2.54 See_Comment [Auto mated message] The = Troponin-I) system which g enerated this result transmit dewayne reference range : <=0.40. The reference r andreia was not used to interpr et this result as dallin l/abnormal. [facility]2019-06-11 08:59:00 Test Item Value Reference Range Interpretation Comments Alk Phos (test code = Alk Phos) 231 39-136 [facility]2019-06-11 08:59:00 Test Item Value Reference Range Interpretation Comments Bili Total (test code = Bili Total) 0.8 0.2-1.3 [facility]2019-06-11 08:59:00 Test Item Value Reference Range Interpretation Comments AST (test code = AST) 41 See_Comment [Auto mated message] The system which ge nerated this result transmit dewayne reference range : <=37. The reference range was not used to interpr et this result as dallin l/abnormal. [facility] [id number] 08:59:00 Test Item Value Reference Range Interpretation Comments ALT (test code = ALT) 22 See_Comment [Auto mated message] The system which ge nerated this result transmit dewayne reference range : <=65. The reference range was not used to interpr et this result as dallin l/abnormal. [facility] [id number] 08:59:00 Test Item Value Reference Range Interpretation Comments Albumin Lvl (test code = Albumin Lvl) 1.9 3.5-5.0 [facility] [id number] 08:59:00 Test Item Value Reference Range Interpretation Comments Total Protein (test code = Total 6.0 6.4-8.4 Protein) [facility] [id number] 08:59:00 Test Item Value Reference Range Interpretation Comments A/G Ratio (test code = A/G Ratio) 0.5 1 0.7-1.6 [facility] [id number] 08:59:00 Test Item Value Reference Range Interpretation Comments Globulin (test code = Globulin) 4.1 2.7-4.2 [facility] [id number] 08:59:00 Test Item Value Reference Range Interpretation Comments B/C Ratio (test code = B/C Ratio) 26 1 6-25 [facility] [id number] 08:59:00 Test Item Value Reference Range Interpretation Comments Basophils # (test code 0.1 See_Comment [Aut omated message] The = Basophils #) system which generated this result tra nsmitted reference range : <=0.2. The reference r andreia was not used to int erpret this result as normal/abnormal . [facility] [id number] 08:59:00 Test Item Value Reference Range Interpretation Comments Troponin-I (test code 2.54 See_Comment [Auto mated message] The = Troponin-I) system which g enerated this result transmit dewayne reference range : <=0.40. The reference r andreia was not used to interpr et this result as dallin l/abnormal. [facility] [employer] [id number] 08:59:00 Test Item Value Reference Range Interpretation Comments Alk Phos (test code = Alk Phos) 231 39-136 [facility] [id number] 08:59:00 Test Item Value Reference Range Interpretation Comments Bili Total (test code = Bili Total) 0.8 0.2-1.3 [facility] [id number] 08:59:00 Test Item Value Reference Range Interpretation Comments AST (test code = AST) 41 See_Comment [Auto mated message] The system which ge nerated this result transmit dewayne reference range : <=37. The reference range was not used to interpr et this result as dallin l/abnormal. [facility] [id number] 08:59:00 Test Item Value Reference Range Interpretation Comments ALT (test code = ALT) 22 See_Comment [Auto mated message] The system which ge nerated this result transmit dewayne reference range : <=65. The reference range was not used to interpr et this result as dallin l/abnormal. [facility] [id number] 08:59:00 Test Item Value Reference Range Interpretation Comments Albumin Lvl (test code = Albumin Lvl) 1.9 3.5-5.0 [facility] [id number] 08:59:00 Test Item Value Reference Range Interpretation Comments Total Protein (test code = Total 6.0 6.4-8.4 Protein) [facility] [id number] 08:59:00 Test Item Value Reference Range Interpretation Comments A/G Ratio (test code = A/G Ratio) 0.5 1 0.7-1.6 [facility] [id number] 08:59:00 Test Item Value Reference Range Interpretation Comments Globulin (test code = Globulin) 4.1 2.7-4.2 [facility] [id number] 08:59:00 Test Item Value Reference Range Interpretation Comments B/C Ratio (test code = B/C Ratio) 26 1 6-25 [facility] [id number] 08:59:00 Test Item Value Reference Range Interpretation Comments Basophils # (test code 0.1 See_Comment [Aut omated message] The = Basophils #) system which generated this result tra nsmitted reference range : <=0.2. The reference r andreia was not used to int erpret this result as normal/abnormal . [facility]ann[facility]AC [id number] 08:59:00 Test Item Value Reference Range Interpretation Comments Troponin-I (test code 2.54 See_Comment [Auto mated message] The = Troponin-I) system which g enerated this result transmit dewayne reference range : <=0.40. The reference r andreia was not used to interpr et this result as dallin l/abnormal. [facility] [id number] 08:59:00 Test Item Value Reference Range Interpretation Comments Alk Phos (test code = Alk Phos) 231 39-136 [facility] [id number] 08:59:00 Test Item Value Reference Range Interpretation Comments Bili Total (test code = Bili Total) 0.8 0.2-1.3 [facility] [id number] 08:59:00 Test Item Value Reference Range Interpretation Comments AST (test code = AST) 41 See_Comment [Auto mated message] The system which ge nerated this result transmit dewayne reference range : <=37. The reference range was not used to interpr et this result as dallin l/abnormal. [facility] [id number] 08:59:00 Test Item Value Reference Range Interpretation Comments ALT (test code = ALT) 22 See_Comment [Auto mated message] The system which ge nerated this result transmit dewayne reference range : <=65. The reference range was not used to interpr et this result as dallin l/abnormal. [facility] [id number] 08:59:00 Test Item Value Reference Range Interpretation Comments Albumin Lvl (test code = Albumin Lvl) 1.9 3.5-5.0 [facility] [id number] 08:59:00 Test Item Value Reference Range Interpretation Comments Total Protein (test code = Total 6.0 6.4-8.4 Protein) [facility] [id number] 08:59:00 Test Item Value Reference Range Interpretation Comments A/G Ratio (test code = A/G Ratio) 0.5 1 0.7-1.6 [facility] [id number] 08:59:00 Test Item Value Reference Range Interpretation Comments Globulin (test code = Globulin) 4.1 2.7-4.2 [facility] [id number] 08:59:00 Test Item Value Reference Range Interpretation Comments B/C Ratio (test code = B/C Ratio) 26 1 6-25 [facility] [id number] 08:59:00 Test Item Value Reference Range Interpretation Comments Basophils # (test code 0.1 See_Comment [Aut omated message] The = Basophils #) system which generated this result tra nsmitted reference range : <=0.2. The reference r andreia was not used to int erpret this result as normal/abnormal . [facility] [id number] 08:59:00 Test Item Value Reference Range Interpretation Comments Troponin-I (test code 2.54 See_Comment [Auto mated message] The = Troponin-I) system which g enerated this result transmit dewayne reference range : <=0.40. The reference r andreia was not used to interpr et this result as dallin l/abnormal. [facility] [id number] 08:59:00 Test Item Value Reference Range Interpretation Comments Alk Phos (test code = Alk Phos) 231 39-136 [facility] [id number] 08:59:00 Test Item Value Reference Range Interpretation Comments Bili Total (test code = Bili Total) 0.8 0.2-1.3 [facility] [id number] 08:59:00 Test Item Value Reference Range Interpretation Comments AST (test code = AST) 41 See_Comment [Auto mated message] The system which ge nerated this result transmit dewayne reference range : <=37. The reference range was not used to interpr et this result as dallin l/abnormal. [facility] [id number] 08:59:00 Test Item Value Reference Range Interpretation Comments ALT (test code = ALT) 22 See_Comment [Auto mated message] The system which ge nerated this result transmit dewayne reference range : <=65. The reference range was not used to interpr et this result as dallin l/abnormal. [facility] [id number] 08:59:00 Test Item Value Reference Range Interpretation Comments Albumin Lvl (test code = Albumin Lvl) 1.9 3.5-5.0 [facility] [id number] 08:59:00 Test Item Value Reference Range Interpretation Comments Total Protein (test code = Total 6.0 6.4-8.4 Protein) [facility]2019-06-11 08:59:00 Test Item Value Reference Range Interpretation Comments A/G Ratio (test code = A/G Ratio) 0.5 1 0.7-1.6 [facility]2019-06-11 08:59:00 Test Item Value Reference Range Interpretation Comments Globulin (test code = Globulin) 4.1 2.7-4.2 [facility]2019-06-11 08:59:00 Test Item Value Reference Range Interpretation Comments B/C Ratio (test code = B/C Ratio) 26 1 6-25 [id number] 08:59:00 Test Item Value Reference Range Interpretation Comments Basophils # (test code 0.1 See_Comment [Aut omated message] The = Basophils #) system which generated this result tra nsmitted reference range : <=0.2. The reference r andreia was not used to int erpret this result as normal/abnormal . [facility] [id number] 08:59:00 Test Item Value Reference Range Interpretation Comments Troponin-I (test code 2.54 See_Comment [Auto mated message] The = Troponin-I) system which g enerated this result transmit dewayne reference range : <=0.40. The reference r andreia was not used to interpr et this result as dallin l/abnormal. [facility]2019-06-11 08:59:00 Test Item Value Reference Range Interpretation Comments Alk Phos (test code = Alk Phos) 231 39-136 [facility]2019-06-11 08:59:00 Test Item Value Reference Range Interpretation Comments Bili Total (test code = Bili Total) 0.8 0.2-1.3 [facility]2019-06-11 08:59:00 Test Item Value Reference Range Interpretation Comments AST (test code = AST) 41 See_Comment [Auto mated message] The system which ge nerated this result transmit dewayne reference range : <=37. The reference range was not used to interpr et this result as dallin l/abnormal. [facility]2019-06-11 08:59:00 Test Item Value Reference Range Interpretation Comments ALT (test code = ALT) 22 See_Comment [Auto mated message] The system which ge nerated this result transmit dewayne reference range : <=65. The reference range was not used to interpr et this result as dallin l/abnormal. [facility] [id number] 08:59:00 Test Item Value Reference Range Interpretation Comments Albumin Lvl (test code = Albumin Lvl) 1.9 3.5-5.0 [facility] [id number] 08:59:00 Test Item Value Reference Range Interpretation Comments Total Protein (test code = Total 6.0 6.4-8.4 Protein) [facility] [id number] 08:59:00 Test Item Value Reference Range Interpretation Comments A/G Ratio (test code = A/G Ratio) 0.5 1 0.7-1.6 [facility] [id number] 08:59:00 Test Item Value Reference Range Interpretation Comments Globulin (test code = Globulin) 4.1 2.7-4.2 [facility] [id number] 08:59:00 Test Item Value Reference Range Interpretation Comments B/C Ratio (test code = B/C Ratio) 26 1 6-25 [facility] [id number] 08:59:00 Test Item Value Reference Range Interpretation Comments Basophils # (test code 0.1 See_Comment [Aut omated message] The = Basophils #) system which generated this result tra nsmitted reference range : <=0.2. The reference r andreia was not used to int erpret this result as normal/abnormal . [facility] [id number] 08:59:00 Test Item Value Reference Range Interpretation Comments Troponin-I (test code 2.54 See_Comment [Auto mated message] The = Troponin-I) system which g enerated this result transmit dewayne reference range : <=0.40. The reference r andreia was not used to interpr et this result as dallin l/abnormal. [facility] [id number] 08:59:00 Test Item Value Reference Range Interpretation Comments Alk Phos (test code = Alk Phos) 231 39-136 [facility] [id number] 08:59:00 Test Item Value Reference Range Interpretation Comments Bili Total (test code = Bili Total) 0.8 0.2-1.3 [facility] [id number] 08:59:00 Test Item Value Reference Range Interpretation Comments AST (test code = AST) 41 See_Comment [Auto mated message] The system which ge nerated this result transmit dewayne reference range : <=37. The reference range was not used to interpr et this result as dallin l/abnormal. [facility] [id number] 08:59:00 Test Item Value Reference Range Interpretation Comments ALT (test code = ALT) 22 See_Comment [Auto mated message] The system which ge nerated this result transmit dewayne reference range : <=65. The reference range was not used to interpr et this result as dallin l/abnormal. [facility] [id number] 08:59:00 Test Item Value Reference Range Interpretation Comments Albumin Lvl (test code = Albumin Lvl) 1.9 3.5-5.0 [facility] [id number] 08:59:00 Test Item Value Reference Range Interpretation Comments Total Protein (test code = Total 6.0 6.4-8.4 Protein) [facility] [id number] 08:59:00 Test Item Value Reference Range Interpretation Comments A/G Ratio (test code = A/G Ratio) 0.5 1 0.7-1.6 [facility] [id number] 08:59:00 Test Item Value Reference Range Interpretation Comments Globulin (test code = Globulin) 4.1 2.7-4.2 [facility] [id number] 08:59:00 Test Item Value Reference Range Interpretation Comments B/C Ratio (test code = B/C Ratio) 26 1 6-25 [facility] [id number] 08:59:00 Test Item Value Reference Range Interpretation Comments Basophils # (test code 0.1 See_Comment [Aut omated message] The = Basophils #) system which generated this result tra nsmitted reference range : <=0.2. The reference r andreia was not used to int erpret this result as normal/abnormal . [facility] [id number] 08:59:00 Test Item Value Reference Range Interpretation Comments Troponin-I (test code 2.54 See_Comment [Auto mated message] The = Troponin-I) system which g enerated this result transmit dewayne reference range : <=0.40. The reference r andreia was not used to interpr et this result as dallin l/abnormal. [facility]2019-06-11 08:59:00 Test Item Value Reference Range Interpretation Comments Alk Phos (test code = Alk Phos) 231 39-136 [facility]2019-06-11 08:59:00 Test Item Value Reference Range Interpretation Comments Bili Total (test code = Bili Total) 0.8 0.2-1.3 [facility]2019-06-11 08:59:00 Test Item Value Reference Range Interpretation Comments AST (test code = AST) 41 See_Comment [Auto mated message] The system which ge nerated this result transmit dewayne reference range : <=37. The reference range was not used to interpr et this result as dallin l/abnormal. [facility]2019-06-11 08:59:00 Test Item Value Reference Range Interpretation Comments ALT (test code = ALT) 22 See_Comment [Auto mated message] The system which ge nerated this result transmit dewayne reference range : <=65. The reference range was not used to interpr et this result as dallin l/abnormal. [facility]2019-06-11 08:59:00 Test Item Value Reference Range Interpretation Comments Albumin Lvl (test code = Albumin Lvl) 1.9 3.5-5.0 [facility]2019-06-11 08:59:00 Test Item Value Reference Range Interpretation Comments Total Protein (test code = Total 6.0 6.4-8.4 Protein) [facility]2019-06-11 08:59:00 Test Item Value Reference Range Interpretation Comments A/G Ratio (test code = A/G Ratio) 0.5 1 0.7-1.6 [facility]2019-06-11 08:59:00 Test Item Value Reference Range Interpretation Comments Globulin (test code = Globulin) 4.1 2.7-4.2 [facility]2019-06-11 08:59:00 Test Item Value Reference Range Interpretation Comments B/C Ratio (test code = B/C Ratio) 26 1 6-25 [id number] 08:59:00 Test Item Value Reference Range Interpretation Comments Basophils # (test code 0.1 See_Comment [Aut omated message] The = Basophils #) system which generated this result tra nsmitted reference range : <=0.2. The reference r andreia was not used to int erpret this result as normal/abnormal . [facility] [employer] [id number] 08:59:00 Test Item Value Reference Range Interpretation Comments Troponin-I (test code 2.54 See_Comment [Auto mated message] The = Troponin-I) system which g enerated this result transmit dewayne reference range : <=0.40. The reference r andreia was not used to interpr et this result as dallin l/abnormal. [facility] [id number] 08:59:00 Test Item Value Reference Range Interpretation Comments Alk Phos (test code = Alk Phos) 231 39-136 [facility] [id number] 08:59:00 Test Item Value Reference Range Interpretation Comments Bili Total (test code = Bili Total) 0.8 0.2-1.3 [facility] [id number] 08:59:00 Test Item Value Reference Range Interpretation Comments AST (test code = AST) 41 See_Comment [Auto mated message] The system which ge nerated this result transmit dewayne reference range : <=37. The reference range was not used to interpr et this result as dallin l/abnormal. [facility] [id number] 08:59:00 Test Item Value Reference Range Interpretation Comments ALT (test code = ALT) 22 See_Comment [Auto mated message] The system which ge nerated this result transmit dewayne reference range : <=65. The reference range was not used to interpr et this result as dallin l/abnormal. [facility] [id number] 08:59:00 Test Item Value Reference Range Interpretation Comments Albumin Lvl (test code = Albumin Lvl) 1.9 3.5-5.0 [facility] [id number] 08:59:00 Test Item Value Reference Range Interpretation Comments Total Protein (test code = Total 6.0 6.4-8.4 Protein) [facility] [id number] 08:59:00 Test Item Value Reference Range Interpretation Comments A/G Ratio (test code = A/G Ratio) 0.5 1 0.7-1.6 [facility] [id number] 08:59:00 Test Item Value Reference Range Interpretation Comments Globulin (test code = Globulin) 4.1 2.7-4.2 [facility] [id number] 08:59:00 Test Item Value Reference Range Interpretation Comments B/C Ratio (test code = B/C Ratio) 26 1 6-25 [facility] [id number] 08:59:00 Test Item Value Reference Range Interpretation Comments Basophils # (test code 0.1 See_Comment [Aut omated message] The = Basophils #) system which generated this result tra nsmitted reference range : <=0.2. The reference r andreia was not used to int erpret this result as normal/abnormal . [facility] [id number] 08:59:00 Test Item Value Reference Range Interpretation Comments Troponin-I (test code = Troponin-I) 2.54 <=0.40 [facility]2019-06-11 08:59:00 Test Item Value Reference Range Interpretation Comments Alk Phos (test code = Alk Phos) 231 39-136 [facility]2019-06-11 08:59:00 Test Item Value Reference Range Interpretation Comments Bili Total (test code = Bili Total) 0.8 0.2-1.3 [facility]2019-06-11 08:59:00 Test Item Value Reference Range Interpretation Comments AST (test code = AST) 41 <=37 [facility]2019-06-11 08:59:00 Test Item Value Reference Range Interpretation Comments ALT (test code = ALT) 22 <=65 [facility]2019-06-11 08:59:00 Test Item Value Reference Range Interpretation Comments Albumin Lvl (test code = Albumin Lvl) 1.9 3.5-5.0 [facility]2019-06-11 08:59:00 Test Item Value Reference Range Interpretation Comments Total Protein (test code = Total 6.0 6.4-8.4 Protein) [facility]2019-06-11 08:59:00 Test Item Value Reference Range Interpretation Comments A/G Ratio (test code = A/G Ratio) 0.5 1 0.7-1.6 [facility]2019-06-11 08:59:00 Test Item Value Reference Range Interpretation Comments Globulin (test code = Globulin) 4.1 2.7-4.2 [facility]2019-06-11 08:59:00 Test Item Value Reference Range Interpretation Comments B/C Ratio (test code = B/C Ratio) 26 1 6-25 [facility] [id number] 08:59:00 Test Item Value Reference Range Interpretation Comments Basophils # (test code = Basophils #) 0.1 <=0.2 [facility] [id number] 08:59:00 Test Item Value Reference Range Interpretation Comments Troponin-I (test code 2.54 See_Comment [Auto mated message] The = Troponin-I) system which g enerated this result transmit dewayne reference range : <=0.40. The reference r andreia was not used to interpr et this result as dallin l/abnormal. [facility]2019-06-11 08:59:00 Test Item Value Reference Range Interpretation Comments Alk Phos (test code = Alk Phos) 231 39-136 [facility]2019-06-11 08:59:00 Test Item Value Reference Range Interpretation Comments Bili Total (test code = Bili Total) 0.8 0.2-1.3 [facility]2019-06-11 08:59:00 Test Item Value Reference Range Interpretation Comments AST (test code = AST) 41 See_Comment [Auto mated message] The system which ge nerated this result transmit dewayne reference range : <=37. The reference range was not used to interpr et this result as dallin l/abnormal. [facility]2019-06-11 08:59:00 Test Item Value Reference Range Interpretation Comments ALT (test code = ALT) 22 See_Comment [Auto mated message] The system which ge nerated this result transmit dewayne reference range : <=65. The reference range was not used to interpr et this result as dallin l/abnormal. [facility]2019-06-11 08:59:00 Test Item Value Reference Range Interpretation Comments Albumin Lvl (test code = Albumin Lvl) 1.9 3.5-5.0 [facility]2019-06-11 08:59:00 Test Item Value Reference Range Interpretation Comments Total Protein (test code = Total 6.0 6.4-8.4 Protein) [facility]2019-06-11 08:59:00 Test Item Value Reference Range Interpretation Comments A/G Ratio (test code = A/G Ratio) 0.5 1 0.7-1.6 [facility]2019-06-11 08:59:00 Test Item Value Reference Range Interpretation Comments Globulin (test code = Globulin) 4.1 2.7-4.2 [facility]2019-06-11 08:59:00 Test Item Value Reference Range Interpretation Comments B/C Ratio (test code = B/C Ratio) 26 1 6-25 [id number] 08:59:00 Test Item Value Reference Range Interpretation Comments Basophils # (test code 0.1 See_Comment [Aut omated message] The = Basophils #) system which generated this result tra nsmitted reference range : <=0.2. The reference r andreia was not used to int erpret this result as normal/abnormal . [facility] [id number] 08:59:00 Test Item Value Reference Range Interpretation Comments Troponin-I (test code 2.54 See_Comment [Auto mated message] The = Troponin-I) system which g enerated this result transmit dewayne reference range : <=0.40. The reference r andreia was not used to interpr et this result as dallin l/abnormal. [facility]MashWorxRANDOLPH [id number] 08:59:00 Test Item Value Reference Range Interpretation Comments Alk Phos (test code = Alk Phos) 231 39-136 [facility]2019-06-11 08:59:00 Test Item Value Reference Range Interpretation Comments Bili Total (test code = Bili Total) 0.8 0.2-1.3 [facility]2019-06-11 08:59:00 Test Item Value Reference Range Interpretation Comments AST (test code = AST) 41 See_Comment [Auto mated message] The system which ge nerated this result transmit dewayne reference range : <=37. The reference range was not used to interpr et this result as dallin l/abnormal. [facility] [id number] 08:59:00 Test Item Value Reference Range Interpretation Comments ALT (test code = ALT) 22 See_Comment [Auto mated message] The system which ge nerated this result transmit dewayne reference range : <=65. The reference range was not used to interpr et this result as dallin l/abnormal. [facility] [id number] 08:59:00 Test Item Value Reference Range Interpretation Comments Albumin Lvl (test code = Albumin Lvl) 1.9 3.5-5.0 [facility] [id number] 08:59:00 Test Item Value Reference Range Interpretation Comments Total Protein (test code = Total 6.0 6.4-8.4 Protein) [facility] [id number] 08:59:00 Test Item Value Reference Range Interpretation Comments A/G Ratio (test code = A/G Ratio) 0.5 1 0.7-1.6 [facility] [id number] 08:59:00 Test Item Value Reference Range Interpretation Comments Globulin (test code = Globulin) 4.1 2.7-4.2 [facility] [id number] 08:59:00 Test Item Value Reference Range Interpretation Comments B/C Ratio (test code = B/C Ratio) 26 1 6-25 [facility] [id number] 08:59:00 Test Item Value Reference Range Interpretation Comments Basophils # (test code 0.1 See_Comment [Aut omated message] The = Basophils #) system which generated this result tra nsmitted reference range : <=0.2. The reference r andreia was not used to int erpret this result as normal/abnormal . [facility] [id number] 08:59:00 Test Item Value Reference Range Interpretation Comments Troponin-I (test code 2.54 See_Comment [Auto mated message] The = Troponin-I) system which g enerated this result transmit dewayne reference range : <=0.40. The reference r andreia was not used to interpr et this result as dallin l/abnormal. [facility] [id number] 08:59:00 Test Item Value Reference Range Interpretation Comments Alk Phos (test code = Alk Phos) 231 39-136 [facility] [id number] 08:59:00 Test Item Value Reference Range Interpretation Comments Bili Total (test code = Bili Total) 0.8 0.2-1.3 [facility]ann[facility] [id number] 08:59:00 Test Item Value Reference Range Interpretation Comments AST (test code = AST) 41 See_Comment [Auto mated message] The system which ge nerated this result transmit dewayne reference range : <=37. The reference range was not used to interpr et this result as dallin l/abnormal. [facility] [id number] 08:59:00 Test Item Value Reference Range Interpretation Comments ALT (test code = ALT) 22 See_Comment [Auto mated message] The system which ge nerated this result transmit dewayne reference range : <=65. The reference range was not used to interpr et this result as dallin l/abnormal. [facility] [id number] 08:59:00 Test Item Value Reference Range Interpretation Comments Albumin Lvl (test code = Albumin Lvl) 1.9 3.5-5.0 [facility] [id number] 08:59:00 Test Item Value Reference Range Interpretation Comments Total Protein (test code = Total 6.0 6.4-8.4 Protein) [facility]CHE[facility] [id number] 08:59:00 Test Item Value Reference Range Interpretation Comments A/G Ratio (test code = A/G Ratio) 0.5 1 0.7-1.6 [facility] [id number] 08:59:00 Test Item Value Reference Range Interpretation Comments Globulin (test code = Globulin) 4.1 2.7-4.2 [facility] HospitalMashWorxCHEM [id number] 08:59:00 Test Item Value Reference Range Interpretation Comments B/C Ratio (test code = B/C Ratio) 26 1 6-25 [facility] [id number] 08:59:00 Test Item Value Reference Range Interpretation Comments Basophils # (test code 0.1 See_Comment [Aut omated message] The = Basophils #) system which generated this result tra nsmitted reference range : <=0.2. The reference r andreia was not used to int erpret this result as normal/abnormal . [facility] [id number] 08:59:00 Test Item Value Reference Range Interpretation Comments Troponin-I (test code 2.54 See_Comment [Auto mated message] The = Troponin-I) system which g enerated this result transmit dewayne reference range : <=0.40. The reference r andreia was not used to interpr et this result as dallin l/abnormal. [facility]2019-06-11 08:59:00 Test Item Value Reference Range Interpretation Comments Alk Phos (test code = Alk Phos) 231 39-136 [facility]2019-06-11 08:59:00 Test Item Value Reference Range Interpretation Comments Bili Total (test code = Bili Total) 0.8 0.2-1.3 [facility]2019-06-11 08:59:00 Test Item Value Reference Range Interpretation Comments AST (test code = AST) 41 See_Comment [Auto mated message] The system which ge nerated this result transmit dewayne reference range : <=37. The reference range was not used to interpr et this result as dallin l/abnormal. [facility]2019-06-11 08:59:00 Test Item Value Reference Range Interpretation Comments ALT (test code = ALT) 22 See_Comment [Auto mated message] The system which ge nerated this result transmit dewayne reference range : <=65. The reference range was not used to interpr et this result as dallin l/abnormal. [facility]2019-06-11 08:59:00 Test Item Value Reference Range Interpretation Comments Albumin Lvl (test code = Albumin Lvl) 1.9 3.5-5.0 [facility]2019-06-11 08:59:00 Test Item Value Reference Range Interpretation Comments Total Protein (test code = Total 6.0 6.4-8.4 Protein) [facility]2019-06-11 08:59:00 Test Item Value Reference Range Interpretation Comments A/G Ratio (test code = A/G Ratio) 0.5 1 0.7-1.6 [place] [id number] 08:59:00 Test Item Value Reference Range Interpretation Comments Globulin (test code = Globulin) 4.1 2.7-4.2 [facility]2019-06-11 08:59:00 Test Item Value Reference Range Interpretation Comments B/C Ratio (test code = B/C Ratio) 26 1 6-25 [id number] 08:59:00 Test Item Value Reference Range Interpretation Comments Basophils # (test code 0.1 See_Comment [Aut omated message] The = Basophils #) system which generated this result tra nsmitted reference range : <=0.2. The reference r andreia was not used to int erpret this result as normal/abnormal . [facility] [id number] 08:59:00 Test Item Value Reference Range Interpretation Comments Troponin-I (test code 2.54 See_Comment [Auto mated message] The = Troponin-I) system which g enerated this result transmit dewayne reference range : <=0.40. The reference r andreia was not used to interpr et this result as dallin l/abnormal. [facility]MashWorxRANDOLPH [id number] 08:59:00 Test Item Value Reference Range Interpretation Comments Alk Phos (test code = Alk Phos) 231 39-136 [facility] [id number] 08:59:00 Test Item Value Reference Range Interpretation Comments Bili Total (test code = Bili Total) 0.8 0.2-1.3 [facility]MashWorxRANDOLPH [id number] 08:59:00 Test Item Value Reference Range Interpretation Comments AST (test code = AST) 41 See_Comment [Auto mated message] The system which ge nerated this result transmit dewayne reference range : <=37. The reference range was not used to interpr et this result as dallin l/abnormal. [facility] [id number] 08:59:00 Test Item Value Reference Range Interpretation Comments ALT (test code = ALT) 22 See_Comment [Auto mated message] The system which ge nerated this result transmit dewayne reference range : <=65. The reference range was not used to interpr et this result as dallin l/abnormal. [facility] [id number] 08:59:00 Test Item Value Reference Range Interpretation Comments Albumin Lvl (test code = Albumin Lvl) 1.9 3.5-5.0 [facility] [id number] 08:59:00 Test Item Value Reference Range Interpretation Comments Total Protein (test code = Total 6.0 6.4-8.4 Protein) [facility] [id number] 08:59:00 Test Item Value Reference Range Interpretation Comments A/G Ratio (test code = A/G Ratio) 0.5 1 0.7-1.6 [facility]2019-06-11 08:59:00 Test Item Value Reference Range Interpretation Comments Globulin (test code = Globulin) 4.1 2.7-4.2 [facility]2019-06-11 08:59:00 Test Item Value Reference Range Interpretation Comments B/C Ratio (test code = B/C Ratio) 26 1 6-25 [id number] 08:59:00 Test Item Value Reference Range Interpretation Comments Basophils # (test code 0.1 See_Comment [Aut omated message] The = Basophils #) system which generated this result tra nsmitted reference range : <=0.2. The reference r andreia was not used to int erpret this result as normal/abnormal . [facility] [id number] 08:59:00 Test Item Value Reference Range Interpretation Comments Troponin-I (test code 2.54 See_Comment [Auto mated message] The = Troponin-I) system which g enerated this result transmit dewayne reference range : <=0.40. The reference r andreia was not used to interpr et this result as dallin l/abnormal. [facility]2019-06-11 08:59:00 Test Item Value Reference Range Interpretation Comments Alk Phos (test code = Alk Phos) 231 39-136 [facility]2019-06-11 08:59:00 Test Item Value Reference Range Interpretation Comments Bili Total (test code = Bili Total) 0.8 0.2-1.3 [facility]2019-06-11 08:59:00 Test Item Value Reference Range Interpretation Comments AST (test code = AST) 41 See_Comment [Auto mated message] The system which ge nerated this result transmit dewayne reference range : <=37. The reference range was not used to interpr et this result as dallin l/abnormal. [facility] [id number] 08:59:00 Test Item Value Reference Range Interpretation Comments ALT (test code = ALT) 22 See_Comment [Auto mated message] The system which ge nerated this result transmit dewayne reference range : <=65. The reference range was not used to interpr et this result as dallin l/abnormal. [facility] [id number] 08:59:00 Test Item Value Reference Range Interpretation Comments Albumin Lvl (test code = Albumin Lvl) 1.9 3.5-5.0 [facility] [id number] 08:59:00 Test Item Value Reference Range Interpretation Comments Total Protein (test code = Total 6.0 6.4-8.4 Protein) [facility] [id number] 08:59:00 Test Item Value Reference Range Interpretation Comments A/G Ratio (test code = A/G Ratio) 0.5 1 0.7-1.6 [facility] [id number] 08:59:00 Test Item Value Reference Range Interpretation Comments Globulin (test code = Globulin) 4.1 2.7-4.2 [facility] [id number] 08:59:00 Test Item Value Reference Range Interpretation Comments B/C Ratio (test code = B/C Ratio) 26 1 6-25 [facility] [id number] 08:59:00 Test Item Value Reference Range Interpretation Comments Basophils # (test code 0.1 See_Comment [Aut omated message] The = Basophils #) system which generated this result tra nsmitted reference range : <=0.2. The reference r andreia was not used to int erpret this result as normal/abnormal . [facility] [id number] 08:59:00 Test Item Value Reference Range Interpretation Comments Troponin-I (test code 2.54 See_Comment [Auto mated message] The = Troponin-I) system which g enerated this result transmit dewayne reference range : <=0.40. The reference r andreia was not used to interpr et this result as dallin l/abnormal. [facility] [id number] 08:59:00 Test Item Value Reference Range Interpretation Comments Alk Phos (test code = Alk Phos) 231 39-136 [facility] [id number] 08:59:00 Test Item Value Reference Range Interpretation Comments Bili Total (test code = Bili Total) 0.8 0.2-1.3 [facility] [id number] 08:59:00 Test Item Value Reference Range Interpretation Comments AST (test code = AST) 41 See_Comment [Auto mated message] The system which ge nerated this result transmit dewayne reference range : <=37. The reference range was not used to interpr et this result as dallin l/abnormal. [facility] [id number] 08:59:00 Test Item Value Reference Range Interpretation Comments ALT (test code = ALT) 22 See_Comment [Auto mated message] The system which ge nerated this result transmit dewayne reference range : <=65. The reference range was not used to interpr et this result as dallin l/abnormal. [facility] [id number] 08:59:00 Test Item Value Reference Range Interpretation Comments Albumin Lvl (test code = Albumin Lvl) 1.9 3.5-5.0 [facility] [id number] 08:59:00 Test Item Value Reference Range Interpretation Comments Total Protein (test code = Total 6.0 6.4-8.4 Protein) [facility] [id number] 08:59:00 Test Item Value Reference Range Interpretation Comments A/G Ratio (test code = A/G Ratio) 0.5 1 0.7-1.6 [facility] [id number] 08:59:00 Test Item Value Reference Range Interpretation Comments Globulin (test code = Globulin) 4.1 2.7-4.2 [facility] [id number] 08:59:00 Test Item Value Reference Range Interpretation Comments B/C Ratio (test code = B/C Ratio) 26 1 6-25 [facility] [id number] 08:59:00 Test Item Value Reference Range Interpretation Comments Basophils # (test code 0.1 See_Comment [Aut omated message] The = Basophils #) system which generated this result tra nsmitted reference range : <=0.2. The reference r andreia was not used to int erpret this result as normal/abnormal . [facility] [id number] 08:59:00 Test Item Value Reference Range Interpretation Comments Troponin-I (test code 2.54 See_Comment [Auto mated message] The = Troponin-I) system which g enerated this result transmit dewayne reference range : <=0.40. The reference r andreia was not used to interpr et this result as dallin l/abnormal. [facility]2019-06-11 08:59:00 Test Item Value Reference Range Interpretation Comments Alk Phos (test code = Alk Phos) 231 39-136 [facility]2019-06-11 08:59:00 Test Item Value Reference Range Interpretation Comments Bili Total (test code = Bili Total) 0.8 0.2-1.3 [facility]2019-06-11 08:59:00 Test Item Value Reference Range Interpretation Comments AST (test code = AST) 41 See_Comment [Auto mated message] The system which ge nerated this result transmit dewayne reference range : <=37. The reference range was not used to interpr et this result as dallin l/abnormal. [facility]2019-06-11 08:59:00 Test Item Value Reference Range Interpretation Comments ALT (test code = ALT) 22 See_Comment [Auto mated message] The system which ge nerated this result transmit dewayne reference range : <=65. The reference range was not used to interpr et this result as dallin l/abnormal. [facility]2019-06-11 08:59:00 Test Item Value Reference Range Interpretation Comments Albumin Lvl (test code = Albumin Lvl) 1.9 3.5-5.0 [facility]2019-06-11 08:59:00 Test Item Value Reference Range Interpretation Comments Total Protein (test code = Total 6.0 6.4-8.4 Protein) [facility]2019-06-11 08:59:00 Test Item Value Reference Range Interpretation Comments A/G Ratio (test code = A/G Ratio) 0.5 1 0.7-1.6 [facility]2019-06-11 08:59:00 Test Item Value Reference Range Interpretation Comments Globulin (test code = Globulin) 4.1 2.7-4.2 [facility]2019-06-11 08:59:00 Test Item Value Reference Range Interpretation Comments B/C Ratio (test code = B/C Ratio) 26 1 6-25 [id number] 08:59:00 Test Item Value Reference Range Interpretation Comments Basophils # (test code 0.1 See_Comment [Aut omated message] The = Basophils #) system which generated this result tra nsmitted reference range : <=0.2. The reference r andreia was not used to int erpret this result as normal/abnormal . [facility]MashWorxCARDIAC [id number] 08:59:00 Test Item Value Reference Range Interpretation Comments Troponin-I (test code 2.54 See_Comment [Auto mated message] The = Troponin-I) system which g enerated this result transmit dewayne reference range : <=0.40. The reference r andreia was not used to interpr et this result as dallin l/abnormal. [facility] [id number] 08:59:00 Test Item Value Reference Range Interpretation Comments Alk Phos (test code = Alk Phos) 231 39-136 [facility] [id number] 08:59:00 Test Item Value Reference Range Interpretation Comments Bili Total (test code = Bili Total) 0.8 0.2-1.3 [facility] [id number] 08:59:00 Test Item Value Reference Range Interpretation Comments AST (test code = AST) 41 See_Comment [Auto mated message] The system which ge nerated this result transmit dewayne reference range : <=37. The reference range was not used to interpr et this result as dallin l/abnormal. [facility] [id number] 08:59:00 Test Item Value Reference Range Interpretation Comments ALT (test code = ALT) 22 See_Comment [Auto mated message] The system which ge nerated this result transmit dewayne reference range : <=65. The reference range was not used to interpr et this result as dallin l/abnormal. [facility] [id number] 08:59:00 Test Item Value Reference Range Interpretation Comments Albumin Lvl (test code = Albumin Lvl) 1.9 3.5-5.0 [facility] [id number] 08:59:00 Test Item Value Reference Range Interpretation Comments Total Protein (test code = Total 6.0 6.4-8.4 Protein) [facility] [id number] 08:59:00 Test Item Value Reference Range Interpretation Comments A/G Ratio (test code = A/G Ratio) 0.5 1 0.7-1.6 [facility] [id number] 08:59:00 Test Item Value Reference Range Interpretation Comments Globulin (test code = Globulin) 4.1 2.7-4.2 [facility] [id number] 08:59:00 Test Item Value Reference Range Interpretation Comments B/C Ratio (test code = B/C Ratio) 26 1 6-25 [facility] H[id number] 08:59:00 Test Item Value Reference Range Interpretation Comments Basophils # (test code 0.1 See_Comment [Aut omated message] The = Basophils #) system which generated this result tra nsmitted reference range : <=0.2. The reference r andreia was not used to int erpret this result as normal/abnormal . [facility] [id number] 08:59:00 Test Item Value Reference Range Interpretation Comments Troponin-I (test code 2.54 See_Comment [Auto mated message] The = Troponin-I) system which g enerated this result transmit dewayne reference range : <=0.40. The reference r andreia was not used to interpr et this result as dallin l/abnormal. [facility]2019-06-11 08:59:00 Test Item Value Reference Range Interpretation Comments Alk Phos (test code = Alk Phos) 231 39-136 [facility]2019-06-11 08:59:00 Test Item Value Reference Range Interpretation Comments Bili Total (test code = Bili Total) 0.8 0.2-1.3 [facility]2019-06-11 08:59:00 Test Item Value Reference Range Interpretation Comments AST (test code = AST) 41 See_Comment [Auto mated message] The system which ge nerated this result transmit dewayne reference range : <=37. The reference range was not used to interpr et this result as dallin l/abnormal. [facility] [id number] 08:59:00 Test Item Value Reference Range Interpretation Comments ALT (test code = ALT) 22 See_Comment [Auto mated message] The system which ge nerated this result transmit dewayne reference range : <=65. The reference range was not used to interpr et this result as dallin l/abnormal. [facility] [id number] 08:59:00 Test Item Value Reference Range Interpretation Comments Albumin Lvl (test code = Albumin Lvl) 1.9 3.5-5.0 [facility]2019-06-11 08:59:00 Test Item Value Reference Range Interpretation Comments Total Protein (test code = Total 6.0 6.4-8.4 Protein) [facility]2019-06-11 08:59:00 Test Item Value Reference Range Interpretation Comments A/G Ratio (test code = A/G Ratio) 0.5 1 0.7-1.6 [facility]2019-06-11 08:59:00 Test Item Value Reference Range Interpretation Comments Globulin (test code = Globulin) 4.1 2.7-4.2 [facility]2019-06-11 08:59:00 Test Item Value Reference Range Interpretation Comments B/C Ratio (test code = B/C Ratio) 26 1 6-25 [id number] 08:59:00 Test Item Value Reference Range Interpretation Comments Basophils # (test code 0.1 See_Comment [Aut omated message] The = Basophils #) system which generated this result tra nsmitted reference range : <=0.2. The reference r andreia was not used to int erpret this result as normal/abnormal . [facility] [id number] 08:59:00 Test Item Value Reference Range Interpretation Comments Troponin-I (test code 2.54 See_Comment [Auto mated message] The = Troponin-I) system which g enerated this result transmit dewayne reference range : <=0.40. The reference r andreia was not used to interpr et this result as dallin l/abnormal. [facility]2019-06-11 08:59:00 Test Item Value Reference Range Interpretation Comments Alk Phos (test code = Alk Phos) 231 39-136 [facility]2019-06-11 08:59:00 Test Item Value Reference Range Interpretation Comments Bili Total (test code = Bili Total) 0.8 0.2-1.3 [facility]2019-06-11 08:59:00 Test Item Value Reference Range Interpretation Comments AST (test code = AST) 41 See_Comment [Auto mated message] The system which ge nerated this result transmit dewayne reference range : <=37. The reference range was not used to interpr et this result as dallin l/abnormal. [facility] [id number] 08:59:00 Test Item Value Reference Range Interpretation Comments ALT (test code = ALT) 22 See_Comment [Auto mated message] The system which ge nerated this result transmit dewayne reference range : <=65. The reference range was not used to interpr et this result as dallin l/abnormal. [facility] [id number] 08:59:00 Test Item Value Reference Range Interpretation Comments Albumin Lvl (test code = Albumin Lvl) 1.9 3.5-5.0 [facility] [id number] 08:59:00 Test Item Value Reference Range Interpretation Comments Total Protein (test code = Total 6.0 6.4-8.4 Protein) [facility] [id number] 08:59:00 Test Item Value Reference Range Interpretation Comments A/G Ratio (test code = A/G Ratio) 0.5 1 0.7-1.6 [facility] [id number] 08:59:00 Test Item Value Reference Range Interpretation Comments Globulin (test code = Globulin) 4.1 2.7-4.2 [facility] [id number] 08:59:00 Test Item Value Reference Range Interpretation Comments B/C Ratio (test code = B/C Ratio) 26 1 6-25 [facility] [id number] 08:59:00 Test Item Value Reference Range Interpretation Comments Basophils # (test code 0.1 See_Comment [Aut omated message] The = Basophils #) system which generated this result tra nsmitted reference range : <=0.2. The reference r andreia was not used to int erpret this result as normal/abnormal . [facility] [id number] 08:59:00 Test Item Value Reference Range Interpretation Comments Troponin-I (test code 2.54 See_Comment [Auto mated message] The = Troponin-I) system which g enerated this result transmit dewayne reference range : <=0.40. The reference r andreia was not used to interpr et this result as dallin l/abnormal. [facility] [id number] 08:59:00 Test Item Value Reference Range Interpretation Comments Alk Phos (test code = Alk Phos) 231 39-136 [facility] [id number] 08:59:00 Test Item Value Reference Range Interpretation Comments Bili Total (test code = Bili Total) 0.8 0.2-1.3 [facility] [id number] 08:59:00 Test Item Value Reference Range Interpretation Comments AST (test code = AST) 41 See_Comment [Auto mated message] The system which ge nerated this result transmit dewayne reference range : <=37. The reference range was not used to interpr et this result as dallin l/abnormal. [facility] [id number] 08:59:00 Test Item Value Reference Range Interpretation Comments ALT (test code = ALT) 22 See_Comment [Auto mated message] The system which ge nerated this result transmit dewayne reference range : <=65. The reference range was not used to interpr et this result as dallin l/abnormal. [facility] [id number] 08:59:00 Test Item Value Reference Range Interpretation Comments Albumin Lvl (test code = Albumin Lvl) 1.9 3.5-5.0 [facility] [id number] 08:59:00 Test Item Value Reference Range Interpretation Comments Total Protein (test code = Total 6.0 6.4-8.4 Protein) [facility] [id number] 08:59:00 Test Item Value Reference Range Interpretation Comments A/G Ratio (test code = A/G Ratio) 0.5 1 0.7-1.6 [facility] [id number] 08:59:00 Test Item Value Reference Range Interpretation Comments Globulin (test code = Globulin) 4.1 2.7-4.2 [facility] [id number] 08:59:00 Test Item Value Reference Range Interpretation Comments B/C Ratio (test code = B/C Ratio) 26 1 6-25 [facility] [id number] 08:59:00 Test Item Value Reference Range Interpretation Comments Basophils # (test code 0.1 See_Comment [Aut omated message] The = Basophils #) system which generated this result tra nsmitted reference range : <=0.2. The reference r andreia was not used to int erpret this result as normal/abnormal . [facility]annCARDIAC [id number] 08:59:00 Test Item Value Reference Range Interpretation Comments Troponin-I (test code 2.54 See_Comment [Auto mated message] The = Troponin-I) system which g enerated this result transmit dewayne reference range : <=0.40. The reference r andreia was not used to interpr et this result as dallin l/abnormal. [facility] [id number] 08:59:00 Test Item Value Reference Range Interpretation Comments Alk Phos (test code = Alk Phos) 231 39-136 [facility] [id number] 08:59:00 Test Item Value Reference Range Interpretation Comments Bili Total (test code = Bili Total) 0.8 0.2-1.3 [facility] [id number] 08:59:00 Test Item Value Reference Range Interpretation Comments AST (test code = AST) 41 See_Comment [Auto mated message] The system which ge nerated this result transmit dewayne reference range : <=37. The reference range was not used to interpr et this result as dallin l/abnormal. [facility] [id number] 08:59:00 Test Item Value Reference Range Interpretation Comments ALT (test code = ALT) 22 See_Comment [Auto mated message] The system which ge nerated this result transmit dewayne reference range : <=65. The reference range was not used to interpr et this result as dallin l/abnormal. [facility] [id number] 08:59:00 Test Item Value Reference Range Interpretation Comments Albumin Lvl (test code = Albumin Lvl) 1.9 3.5-5.0 [facility] [id number] 08:59:00 Test Item Value Reference Range Interpretation Comments Total Protein (test code = Total 6.0 6.4-8.4 Protein) [facility] [id number] 08:59:00 Test Item Value Reference Range Interpretation Comments A/G Ratio (test code = A/G Ratio) 0.5 1 0.7-1.6 [facility] [id number] 08:59:00 Test Item Value Reference Range Interpretation Comments Globulin (test code = Globulin) 4.1 2.7-4.2 [facility] [id number] 08:59:00 Test Item Value Reference Range Interpretation Comments B/C Ratio (test code = B/C Ratio) 26 1 6-25 [facility] [id number] 08:59:00 Test Item Value Reference Range Interpretation Comments Basophils # (test code 0.1 See_Comment [Aut omated message] The = Basophils #) system which generated this result tra nsmitted reference range : <=0.2. The reference r andreia was not used to int erpret this result as normal/abnormal . [facility] [id number] 08:59:00 Test Item Value Reference Range Interpretation Comments Troponin-I (test code 2.54 See_Comment [Auto mated message] The = Troponin-I) system which g enerated this result transmit dewayne reference range : <=0.40. The reference r andreia was not used to interpr et this result as dallin l/abnormal. [facility] [id number] 08:59:00 Test Item Value Reference Range Interpretation Comments Alk Phos (test code = Alk Phos) 231 39-136 [facility] [id number] 08:59:00 Test Item Value Reference Range Interpretation Comments Bili Total (test code = Bili Total) 0.8 0.2-1.3 [facility] [id number] 08:59:00 Test Item Value Reference Range Interpretation Comments AST (test code = AST) 41 See_Comment [Auto mated message] The system which ge nerated this result transmit dewayne reference range : <=37. The reference range was not used to interpr et this result as dallin l/abnormal. [facility] [id number] 08:59:00 Test Item Value Reference Range Interpretation Comments ALT (test code = ALT) 22 See_Comment [Auto mated message] The system which ge nerated this result transmit dewayne reference range : <=65. The reference range was not used to interpr et this result as dallin l/abnormal. [facility] [id number] 08:59:00 Test Item Value Reference Range Interpretation Comments Albumin Lvl (test code = Albumin Lvl) 1.9 3.5-5.0 [facility] [id number] 08:59:00 Test Item Value Reference Range Interpretation Comments Total Protein (test code = Total 6.0 6.4-8.4 Protein) [facility]2019-06-11 08:59:00 Test Item Value Reference Range Interpretation Comments A/G Ratio (test code = A/G Ratio) 0.5 1 0.7-1.6 [facility]2019-06-11 08:59:00 Test Item Value Reference Range Interpretation Comments Globulin (test code = Globulin) 4.1 2.7-4.2 [facility]2019-06-11 08:59:00 Test Item Value Reference Range Interpretation Comments B/C Ratio (test code = B/C Ratio) 26 1 6-25 [facility] [id number] 08:59:00 Test Item Value Reference Range Interpretation Comments Basophils # (test code 0.1 See_Comment [Aut omated message] The = Basophils #) system which generated this result tra nsmitted reference range : <=0.2. The reference r andreia was not used to int erpret this result as normal/abnormal . [facility] [id number] 08:59:00 Test Item Value Reference Range Interpretation Comments Troponin-I (test code 2.54 See_Comment [Auto mated message] The = Troponin-I) system which g enerated this result transmit dewayne reference range : <=0.40. The reference r andreia was not used to interpr et this result as dallin l/abnormal. [facility]2019-06-11 08:59:00 Test Item Value Reference Range Interpretation Comments Alk Phos (test code = Alk Phos) 231 39-136 [facility]2019-06-11 08:59:00 Test Item Value Reference Range Interpretation Comments Bili Total (test code = Bili Total) 0.8 0.2-1.3 [facility]2019-06-11 08:59:00 Test Item Value Reference Range Interpretation Comments AST (test code = AST) 41 See_Comment [Auto mated message] The system which ge nerated this result transmit dewayne reference range : <=37. The reference range was not used to interpr et this result as dallin l/abnormal. [facility]2019-06-11 08:59:00 Test Item Value Reference Range Interpretation Comments ALT (test code = ALT) 22 See_Comment [Auto mated message] The system which ge nerated this result transmit dewayne reference range : <=65. The reference range was not used to interpr et this result as dallin l/abnormal. [facility] [id number] 08:59:00 Test Item Value Reference Range Interpretation Comments Albumin Lvl (test code = Albumin Lvl) 1.9 3.5-5.0 [facility] [id number] 08:59:00 Test Item Value Reference Range Interpretation Comments Total Protein (test code = Total 6.0 6.4-8.4 Protein) [facility] [id number] 08:59:00 Test Item Value Reference Range Interpretation Comments A/G Ratio (test code = A/G Ratio) 0.5 1 0.7-1.6 [facility]2019-06-11 08:59:00 Test Item Value Reference Range Interpretation Comments Globulin (test code = Globulin) 4.1 2.7-4.2 [facility]2019-06-11 08:59:00 Test Item Value Reference Range Interpretation Comments B/C Ratio (test code = B/C Ratio) 26 1 6-25 [facility] HospitalFphjfhhOODMPOLXBH0284-06-96 08:59:00 Test Item Value Reference Range Interpretation Comments Basophils # (test code 0.1 See_Comment [Aut omated message] The = Basophils #) system which generated this result tra nsmitted reference range : <=0.2. The reference r andreia was not used to int erpret this result as normal/abnormal . [facility]de[facility]XFMTAOLBN0421-[facility]-41 15:43:00 Test Item Value Reference Range Interpretation Comments Vanco Lvl (test code = Vanco Lvl) 21.3 [facility] HospitalPshriiaVMOZPKHQDB0019-71-29 15:43:00 Test Item Value Reference Range Interpretation Comments Vanco Lvl (test code = Vanco Lvl) 21.3 [facility] HospitalMmmfpkfPKEQIFHIJF9833-90-82 15:43:00 Test Item Value Reference Range Interpretation Comments Vanco Lvl (test code = Vanco Lvl) 21.3 [facility] HospitalDkusqxyYKSEKTXNQW8132-96-81 15:43:00 Test Item Value Reference Range Interpretation Comments Vanco Lvl (test code = Vanco Lvl) 21.3 [facility] HospitalLtdmqkyIWQROQDJXQ3683-89-45 15:43:00 Test Item Value Reference Range Interpretation Comments Vanco Lvl (test code = Vanco Lvl) 21.3 [facility] UtezgxsEXPYLYVQVO6447-16-61 15:43:00 Test Item Value Reference Range Interpretation Comments Vanco Lvl (test code = Vanco Lvl) 21.3 [facility] HospitalRnjcmziDLTMOGNPQK1340-81-99 15:43:00 Test Item Value Reference Range Interpretation Comments Vanco Lvl (test code = Vanco Lvl) 21.3 [facility] HospitalPeftsdvPKDIRBOWTU3948-86-41 15:43:00 Test Item Value Reference Range Interpretation Comments Vanco Lvl (test code = Vanco Lvl) 21.3 [facility] HospitalXmimajvGUJGZKPEUI0308-50-45 15:43:00 Test Item Value Reference Range Interpretation Comments Vanco Lvl (test code = Vanco Lvl) 21.3 [facility] HospitalTmqeytdRAYFMYGMOS5722-25-44 15:43:00 Test Item Value Reference Range Interpretation Comments Vanco Lvl (test code = Vanco Lvl) 21.3 [facility] HospitalQmsupalZOROMHRJRK9833-66-02 15:43:00 Test Item Value Reference Range Interpretation Comments Vanco Lvl (test code = Vanco Lvl) 21.3 [facility]wJMLWJJPDNU0640-[facility]-38 15:43:00 Test Item Value Reference Range Interpretation Comments Vanco Lvl (test code = Vanco Lvl) 21.3 [facility] HospitalUprbeuzOKXORIYIEM5263-85-26 15:43:00 Test Item Value Reference Range Interpretation Comments Vanco Lvl (test code = Vanco Lvl) 21.3 [facility] HospitalBsyqhwlJMTDVSKKHD6860-14-47 15:43:00 Test Item Value Reference Range Interpretation Comments Vanco Lvl (test code = Vanco Lvl) 21.3 [facility] HospitalOjncqenSCDYIIWXSV8619-38-94 15:43:00 Test Item Value Reference Range Interpretation Comments Vanco Lvl (test code = Vanco Lvl) 21.3 [facility] HospitalCzqgfrlIQRIQWWAEF8100-82-34 15:43:00 Test Item Value Reference Range Interpretation Comments Vanco Lvl (test code = Vanco Lvl) 21.3 [facility] HospitalAdjjczvJIZMXTWFRO7991-53-54 15:43:00 Test Item Value Reference Range Interpretation Comments Vanco Lvl (test code = Vanco Lvl) 21.3 [facility] PtfrpijEOHDWHOYEF6578-51-94 15:43:00 Test Item Value Reference Range Interpretation Comments Vanco Lvl (test code = Vanco Lvl) 21.3 [facility] HospitalVuiwouxBGSZBMFFWM8473-93-66 15:43:00 Test Item Value Reference Range Interpretation Comments Vanco Lvl (test code = Vanco Lvl) 21.3 [facility] HospitalGmcdbezZRLHLDHDIF9896-15-20 15:43:00 Test Item Value Reference Range Interpretation Comments Vanco Lvl (test code = Vanco Lvl) 21.3 [facility] HospitalRsvtxuwRZTTYKXEJO1625-05-21 15:43:00 Test Item Value Reference Range Interpretation Comments Vanco Lvl (test code = Vanco Lvl) 21.3 [facility] HospitalNndwtnzQCKLCOJCRR1824-29-39 15:43:00 Test Item Value Reference Range Interpretation Comments Vanco Lvl (test code = Vanco Lvl) 21.3 [facility] HospitalFomvusoJSHSQACKKI6596-60-48 15:43:00 Test Item Value Reference Range Interpretation Comments Vanco Lvl (test code = Vanco Lvl) 21.3 [facility] HospitalXbsleqzUIBCVSTSRF8498-78-60 15:43:00 Test Item Value Reference Range Interpretation Comments Vanco Lvl (test code = Vanco Lvl) 21.3 [facility] HospitalQeikdgiBSQKKOREHX1128-46-20 15:43:00 Test Item Value Reference Range Interpretation Comments Vanco Lvl (test code = Vanco Lvl) 21.3 [facility] HospitalFrnowfxMTGEHKHSDD7502-57-93 15:43:00 Test Item Value Reference Range Interpretation Comments Vanco Lvl (test code = Vanco Lvl) 21.3 [facility] HospitalJugoyfnFQQCJOHSAW8758-45-57 15:43:00 Test Item Value Reference Range Interpretation Comments Vanco Lvl (test code = Vanco Lvl) 21.3 [facility] Oaixgw2532-33-87 14:45:00 Test Item Value Reference Range Interpretation Comments Gram Stain Report Gram Stain Performed By: (test code = [facility] BL Stain Report) [facility] w/Gram [id number] 14:45:00 Test Item Value Reference Range Interpretation Comments Culture: Respiratory Few Yeast Normal w/Gram Stain (test code Respiratory Louise = Culture: Respiratory Isolated w/Gram Stain) [facility] Nvtfph5632-18-77 14:45:00 Test Item Value Reference Range Interpretation Comments Gram Stain Report Gram Stain Performed By: (test code = [facility] BL Stain Report) [facility] Respiratory w/Gram [id number] 14:45:00 Test Item Value Reference Range Interpretation Comments Culture: Respiratory Few Yeast Normal w/Gram Stain (test code Respiratory Louise = Culture: Respiratory Isolated w/Gram Stain) [facility] [id number] 14:45:00 Test Item Value Reference Range Interpretation Comments Gram Stain Report Gram Stain Performed By: (test code = [facility] BL Stain Report) [facility] Respiratory w/Gram [id number] 14:45:00 Test Item Value Reference Range Interpretation Comments Culture: Respiratory Few Yeast Normal w/Gram Stain (test code Respiratory Louise = Culture: Respiratory Isolated w/Gram Stain) [facility]annG[facility] Ochigy2538-50-02 14:45:00 Test Item Value Reference Range Interpretation Comments Gram Stain Report Gram Stain Performed By: (test code = [facility] BL Stain Report) [facility] Respiratory w/Gram [id number] 14:45:00 Test Item Value Reference Range Interpretation Comments Culture: Respiratory Few Yeast Normal w/Gram Stain (test code Respiratory Louise = Culture: Respiratory Isolated w/Gram Stain) [facility] Tvvgpb5477-98-24 14:45:00 Test Item Value Reference Range Interpretation Comments Gram Stain Report Gram Stain Performed By: (test code = [facility] BL Stain Report) [facility] Respiratory w/Gram [id number] 14:45:00 Test Item Value Reference Range Interpretation Comments Culture: Respiratory Few Yeast Normal w/Gram Stain (test code Respiratory Louise = Culture: Respiratory Isolated w/Gram Stain) [facility] [id number] 14:45:00 Test Item Value Reference Range Interpretation Comments Gram Stain Report Gram Stain Performed By: (test code = [facility] BL Stain Report) [facility] Respiratory w/Gram [id number] 14:45:00 Test Item Value Reference Range Interpretation Comments Culture: Respiratory Few Yeast Normal w/Gram Stain (test code Respiratory Louise = Culture: Respiratory Isolated w/Gram Stain) [facility] Anobqt8636-32-66 14:45:00 Test Item Value Reference Range Interpretation Comments Gram Stain Report Gram Stain Performed By: (test code = [facility] BL Stain Report) [facility] Respiratory w/Gram Oijnt9424-22-28 14:45:00 Test Item Value Reference Range Interpretation Comments Culture: Respiratory Few Yeast Normal w/Gram Stain (test code Respiratory Louise = Culture: Respiratory Isolated w/Gram Stain) [facility] Vguymp3413-24-17 14:45:00 Test Item Value Reference Range Interpretation Comments Gram Stain Report Gram Stain Performed By: (test code = [facility] BL Stain Report) [facility] Respiratory w/Gram [id number] 14:45:00 Test Item Value Reference Range Interpretation Comments Culture: Respiratory Few Yeast Normal w/Gram Stain (test code Respiratory Louise = Culture: Respiratory Isolated w/Gram Stain) [facility] [id number] 14:45:00 Test Item Value Reference Range Interpretation Comments Gram Stain Report Gram Stain Performed By: (test code = [facility] BL Stain Report) [facility]all[facility]: Respiratory w/Gram [id number] 14:45:00 Test Item Value Reference Range Interpretation Comments Culture: Respiratory Few Yeast Normal w/Gram Stain (test code Respiratory Louise = Culture: Respiratory Isolated w/Gram Stain) [facility] Ykevzo7574-23-62 14:45:00 Test Item Value Reference Range Interpretation Comments Gram Stain Report Gram Stain Performed By: (test code = [facility] BL Stain Report) [facility] Respiratory w/Gram [id number] 14:45:00 Test Item Value Reference Range Interpretation Comments Culture: Respiratory Few Yeast Normal w/Gram Stain (test code Respiratory Louise = Culture: Respiratory Isolated w/Gram Stain) [facility] [id number] 14:45:00 Test Item Value Reference Range Interpretation Comments Gram Stain Report Gram Stain Performed By: (test code = [facility] BL Stain Report) [facility] Respiratory w/Gram [id number] 14:45:00 Test Item Value Reference Range Interpretation Comments Culture: Respiratory Few Yeast Normal w/Gram Stain (test code Respiratory Louise = Culture: Respiratory Isolated w/Gram Stain) [facility] [id number] 14:45:00 Test Item Value Reference Range Interpretation Comments Gram Stain Report Gram Stain Performed By: (test code = [facility] BL Stain Report) [facility] Respiratory w/Gram Kzdhc5597-02-31 14:45:00 Test Item Value Reference Range Interpretation Comments Culture: Respiratory Few Yeast Normal w/Gram Stain (test code Respiratory Louise = Culture: Respiratory Isolated w/Gram Stain) [facility] [id number] 14:45:00 Test Item Value Reference Range Interpretation Comments Gram Stain Report Gram Stain Performed By: (test code = [facility] BL Stain Report) [facility] Respiratory w/Gram [id number] 14:45:00 Test Item Value Reference Range Interpretation Comments Culture: Respiratory Few Yeast Normal w/Gram Stain (test code Respiratory Louise = Culture: Respiratory Isolated w/Gram Stain) [facility] [id number] 14:45:00 Test Item Value Reference Range Interpretation Comments Gram Stain Report Gram Stain Performed By: (test code = [facility] BL Stain Report) [facility] Respiratory w/Gram [id number] 14:45:00 Test Item Value Reference Range Interpretation Comments Culture: Respiratory Few Yeast Normal w/Gram Stain (test code Respiratory Louise = Culture: Respiratory Isolated w/Gram Stain) [facility] [id number] 14:45:00 Test Item Value Reference Range Interpretation Comments Gram Stain Report Gram Stain Performed By: (test code = [facility] BL Stain Report) [facility] Respiratory w/Gram [id number] 14:45:00 Test Item Value Reference Range Interpretation Comments Culture: Respiratory Few Yeast Normal w/Gram Stain (test code Respiratory Louise = Culture: Respiratory Isolated w/Gram Stain) [facility] [id number] 14:45:00 Test Item Value Reference Range Interpretation Comments Gram Stain Report Gram Stain Performed By: (test code = [facility] BL Stain Report) [facility] Respiratory w/Gram [id number] 14:45:00 Test Item Value Reference Range Interpretation Comments Culture: Respiratory Few Yeast Normal w/Gram Stain (test code Respiratory Louise = Culture: Respiratory Isolated w/Gram Stain) [facility] [id number] 14:45:00 Test Item Value Reference Range Interpretation Comments Gram Stain Report Gram Stain Performed By: (test code = [facility] BL Stain Report) [facility] Respiratory w/Gram [id number] 14:45:00 Test Item Value Reference Range Interpretation Comments Culture: Respiratory Few Yeast Normal w/Gram Stain (test code Respiratory Louise = Culture: Respiratory Isolated w/Gram Stain) [facility] [id number] 14:45:00 Test Item Value Reference Range Interpretation Comments Gram Stain Report Gram Stain Performed By: (test code = [facility] BL Stain Report) [facility]: Respiratory w/Gram [id number] 14:45:00 Test Item Value Reference Range Interpretation Comments Culture: Respiratory Few Yeast Normal w/Gram Stain (test code Respiratory Louise = Culture: Respiratory Isolated w/Gram Stain) [facility] [id number] 14:45:00 Test Item Value Reference Range Interpretation Comments Gram Stain Report Gram Stain Performed By: (test code = [facility] BL Stain Report) [facility] Respiratory w/Gram [id number] 14:45:00 Test Item Value Reference Range Interpretation Comments Culture: Respiratory Few Yeast Normal w/Gram Stain (test code Respiratory Louise = Culture: Respiratory Isolated w/Gram Stain) [facility] [id number] 14:45:00 Test Item Value Reference Range Interpretation Comments Gram Stain Report Gram Stain Performed By: (test code = [facility] BL Stain Report) [facility] Respiratory w/Gram [id number] 14:45:00 Test Item Value Reference Range Interpretation Comments Culture: Respiratory Few Yeast Normal w/Gram Stain (test code Respiratory Louise = Culture: Respiratory Isolated w/Gram Stain) [facility] [id number] 14:45:00 Test Item Value Reference Range Interpretation Comments Gram Stain Report Gram Stain Performed By: (test code = [facility] BL Stain Report) [facility] Respiratory w/Gram [id number] 14:45:00 Test Item Value Reference Range Interpretation Comments Culture: Respiratory Few Yeast Normal w/Gram Stain (test code Respiratory Louise = Culture: Respiratory Isolated w/Gram Stain) [facility] [id number] 14:45:00 Test Item Value Reference Range Interpretation Comments Gram Stain Report Gram Stain Performed By: (test code = [facility] BL Stain Report) [facility] Respiratory w/Gram [id number] 14:45:00 Test Item Value Reference Range Interpretation Comments Culture: Respiratory Few Yeast Normal w/Gram Stain (test code Respiratory Louise = Culture: Respiratory Isolated w/Gram Stain) [facility] [id number] 14:45:00 Test Item Value Reference Range Interpretation Comments Gram Stain Report Gram Stain Performed By: (test code = [facility] BL Stain Report) [facility] Respiratory w/Gram [id number] 14:45:00 Test Item Value Reference Range Interpretation Comments Culture: Respiratory Few Yeast Normal w/Gram Stain (test code Respiratory Louise = Culture: Respiratory Isolated w/Gram Stain) [facility] [id number] 14:45:00 Test Item Value Reference Range Interpretation Comments Gram Stain Report Gram Stain Performed By: (test code = [facility] BL Stain Report) [facility] Respiratory w/Gram [id number] 14:45:00 Test Item Value Reference Range Interpretation Comments Culture: Respiratory Few Yeast Normal w/Gram Stain (test code Respiratory Louise = Culture: Respiratory Isolated w/Gram Stain) [facility] [id number] 14:45:00 Test Item Value Reference Range Interpretation Comments Gram Stain Report Gram Stain Performed By: (test code = [facility] BL Stain Report) [facility] Respiratory w/Gram [id number] 14:45:00 Test Item Value Reference Range Interpretation Comments Culture: Respiratory Few Yeast Normal w/Gram Stain (test code Respiratory Louise = Culture: Respiratory Isolated w/Gram Stain) [facility] [id number] 14:45:00 Test Item Value Reference Range Interpretation Comments Gram Stain Report Gram Stain Performed By: (test code = [facility] BL Stain Report) [facility] Respiratory w/Gram [id number] 14:45:00 Test Item Value Reference Range Interpretation Comments Culture: Respiratory Few Yeast Normal w/Gram Stain (test code Respiratory Louise = Culture: Respiratory Isolated w/Gram Stain) [facility] [id number] 14:45:00 Test Item Value Reference Range Interpretation Comments Gram Stain Report Gram Stain Performed By: (test code = [facility] BL Stain Report) [facility]all[facility]: Respiratory w/Gram [id number] 14:45:00 Test Item Value Reference Range Interpretation Comments Culture: Respiratory Few Yeast Normal w/Gram Stain (test code Respiratory Louise = Culture: Respiratory Isolated w/Gram Stain) [facility] [id number] 09:36:00 Test Item Value Reference Range Interpretation Comments AST (test code = AST) 59 <=37 [facility] [id number] 09:36:00 Test Item Value Reference Range Interpretation Comments Alk Phos (test code = Alk Phos) 284 39-136 [facility]2019-06-10 09:36:00 Test Item Value Reference Range Interpretation Comments Albumin Lvl (test code = Albumin Lvl) 1.8 3.5-5.0 [facility] [id number] 09:36:00 Test Item Value Reference Range Interpretation Comments ALT (test code = ALT) 29 <=65 [facility] [id number] 09:36:00 Test Item Value Reference Range Interpretation Comments Total Protein (test code = Total 6.1 6.4-8.4 Protein) [facility] [id number] 09:36:00 Test Item Value Reference Range Interpretation Comments B/C Ratio (test code = B/C Ratio) 31 1 6-25 [facility] [id number] 09:36:00 Test Item Value Reference Range Interpretation Comments Bili Total (test code = Bili Total) 0.9 0.2-1.3 [facility]2019-06-10 09:36:00 Test Item Value Reference Range Interpretation Comments A/G Ratio (test code = A/G Ratio) 0.4 1 0.7-1.6 [facility]2019-06-10 09:36:00 Test Item Value Reference Range Interpretation Comments Globulin (test code = Globulin) 4.3 2.7-4.2 [facility]2019-06-10 09:36:00 Test Item Value Reference Range Interpretation Comments AST (test code = AST) 59 See_Comment [Auto mated message] The system which ge nerated this result transmit dewayne reference range : <=37. The reference range was not used to interpr et this result as dallin l/abnormal. [facility]2019-06-10 09:36:00 Test Item Value Reference Range Interpretation Comments Alk Phos (test code = Alk Phos) 284 39-136 [facility]2019-06-10 09:36:00 Test Item Value Reference Range Interpretation Comments Albumin Lvl (test code = Albumin Lvl) 1.8 3.5-5.0 [facility]2019-06-10 09:36:00 Test Item Value Reference Range Interpretation Comments ALT (test code = ALT) 29 See_Comment [Auto mated message] The system which ge nerated this result transmit dewayne reference range : <=65. The reference range was not used to interpr et this result as dallin l/abnormal. [facility]2019-06-10 09:36:00 Test Item Value Reference Range Interpretation Comments Total Protein (test code = Total 6.1 6.4-8.4 Protein) [facility]2019-06-10 09:36:00 Test Item Value Reference Range Interpretation Comments B/C Ratio (test code = B/C Ratio) 31 1 6-25 [facility]2019-06-10 09:36:00 Test Item Value Reference Range Interpretation Comments Bili Total (test code = Bili Total) 0.9 0.2-1.3 [place] 781989-06-10 09:36:00 Test Item Value Reference Range Interpretation Comments A/G Ratio (test code = A/G Ratio) 0.4 1 0.7-1.6 [place] 781989-06-10 09:36:00 Test Item Value Reference Range Interpretation Comments Globulin (test code = Globulin) 4.3 2.7-4.2 [facility]2019-06-10 09:36:00 Test Item Value Reference Range Interpretation Comments AST (test code = AST) 59 See_Comment [Auto mated message] The system which ge nerated this result transmit dewayne reference range : <=37. The reference range was not used to interpr et this result as dallin l/abnormal. [facility]2019-06-10 09:36:00 Test Item Value Reference Range Interpretation Comments Alk Phos (test code = Alk Phos) 284 39-136 [facility]2019-06-10 09:36:00 Test Item Value Reference Range Interpretation Comments Albumin Lvl (test code = Albumin Lvl) 1.8 3.5-5.0 [facility]2019-06-10 09:36:00 Test Item Value Reference Range Interpretation Comments ALT (test code = ALT) 29 See_Comment [Auto mated message] The system which ge nerated this result transmit dewayne reference range : <=65. The reference range was not used to interpr et this result as dallin l/abnormal. [facility]2019-06-10 09:36:00 Test Item Value Reference Range Interpretation Comments Total Protein (test code = Total 6.1 6.4-8.4 Protein) [place] 781989-06-10 09:36:00 Test Item Value Reference Range Interpretation Comments B/C Ratio (test code = B/C Ratio) 31 1 6-25 [place] 781989-06-10 09:36:00 Test Item Value Reference Range Interpretation Comments Bili Total (test code = Bili Total) 0.9 0.2-1.3 [facility]2019-06-10 09:36:00 Test Item Value Reference Range Interpretation Comments A/G Ratio (test code = A/G Ratio) 0.4 1 0.7-1.6 [place] [address]1989-06-10 09:36:00 Test Item Value Reference Range Interpretation Comments Globulin (test code = Globulin) 4.3 2.7-4.2 [place] [address]1989-06-10 09:36:00 Test Item Value Reference Range Interpretation Comments AST (test code = AST) 59 See_Comment [Auto mated message] The system which ge nerated this result transmit dewayne reference range : <=37. The reference range was not used to interpr et this result as dallin l/abnormal. [facility]2019-06-10 09:36:00 Test Item Value Reference Range Interpretation Comments Alk Phos (test code = Alk Phos) 284 39-136 [facility]2019-06-10 09:36:00 Test Item Value Reference Range Interpretation Comments Albumin Lvl (test code = Albumin Lvl) 1.8 3.5-5.0 [facility]2019-06-10 09:36:00 Test Item Value Reference Range Interpretation Comments ALT (test code = ALT) 29 See_Comment [Auto mated message] The system which ge nerated this result transmit dewayne reference range : <=65. The reference range was not used to interpr et this result as dallin l/abnormal. [facility]2019-06-10 09:36:00 Test Item Value Reference Range Interpretation Comments Total Protein (test code = Total 6.1 6.4-8.4 Protein) [facility]2019-06-10 09:36:00 Test Item Value Reference Range Interpretation Comments B/C Ratio (test code = B/C Ratio) 31 1 6-25 [facility]2019-06-10 09:36:00 Test Item Value Reference Range Interpretation Comments Bili Total (test code = Bili Total) 0.9 0.2-1.3 [facility]2019-06-10 09:36:00 Test Item Value Reference Range Interpretation Comments A/G Ratio (test code = A/G Ratio) 0.4 1 0.7-1.6 [facility]2019-06-10 09:36:00 Test Item Value Reference Range Interpretation Comments Globulin (test code = Globulin) 4.3 2.7-4.2 [facility]2019-06-10 09:36:00 Test Item Value Reference Range Interpretation Comments AST (test code = AST) 59 See_Comment [Auto mated message] The system which ge nerated this result transmit dewayne reference range : <=37. The reference range was not used to interpr et this result as dallin l/abnormal. [facility]2019-06-10 09:36:00 Test Item Value Reference Range Interpretation Comments Alk Phos (test code = Alk Phos) 284 39-136 [facility]2019-06-10 09:36:00 Test Item Value Reference Range Interpretation Comments Albumin Lvl (test code = Albumin Lvl) 1.8 3.5-5.0 [facility]2019-06-10 09:36:00 Test Item Value Reference Range Interpretation Comments ALT (test code = ALT) 29 See_Comment [Auto mated message] The system which ge nerated this result transmit dewayne reference range : <=65. The reference range was not used to interpr et this result as dallin l/abnormal. [facility]2019-06-10 09:36:00 Test Item Value Reference Range Interpretation Comments Total Protein (test code = Total 6.1 6.4-8.4 Protein) [facility]2019-06-10 09:36:00 Test Item Value Reference Range Interpretation Comments B/C Ratio (test code = B/C Ratio) 31 1 6-25 [facility]2019-06-10 09:36:00 Test Item Value Reference Range Interpretation Comments Bili Total (test code = Bili Total) 0.9 0.2-1.3 [facility]2019-06-10 09:36:00 Test Item Value Reference Range Interpretation Comments A/G Ratio (test code = A/G Ratio) 0.4 1 0.7-1.6 [facility]2019-06-10 09:36:00 Test Item Value Reference Range Interpretation Comments Globulin (test code = Globulin) 4.3 2.7-4.2 [facility]2019-06-10 09:36:00 Test Item Value Reference Range Interpretation Comments AST (test code = AST) 59 See_Comment [Auto mated message] The system which ge nerated this result transmit dewayne reference range : <=37. The reference range was not used to interpr et this result as dallin l/abnormal. [facility]2019-06-10 09:36:00 Test Item Value Reference Range Interpretation Comments Alk Phos (test code = Alk Phos) 284 39-136 [facility]2019-06-10 09:36:00 Test Item Value Reference Range Interpretation Comments Albumin Lvl (test code = Albumin Lvl) 1.8 3.5-5.0 [facility]2019-06-10 09:36:00 Test Item Value Reference Range Interpretation Comments ALT (test code = ALT) 29 See_Comment [Auto mated message] The system which ge nerated this result transmit dewayne reference range : <=65. The reference range was not used to interpr et this result as dallin l/abnormal. [facility]2019-06-10 09:36:00 Test Item Value Reference Range Interpretation Comments Total Protein (test code = Total 6.1 6.4-8.4 Protein) [facility]2019-06-10 09:36:00 Test Item Value Reference Range Interpretation Comments B/C Ratio (test code = B/C Ratio) 31 1 6-25 [place] [address]1989-06-10 09:36:00 Test Item Value Reference Range Interpretation Comments Bili Total (test code = Bili Total) 0.9 0.2-1.3 [facility]2019-06-10 09:36:00 Test Item Value Reference Range Interpretation Comments A/G Ratio (test code = A/G Ratio) 0.4 1 0.7-1.6 [facility]2019-06-10 09:36:00 Test Item Value Reference Range Interpretation Comments Globulin (test code = Globulin) 4.3 2.7-4.2 [facility]2019-06-10 09:36:00 Test Item Value Reference Range Interpretation Comments AST (test code = AST) 59 See_Comment [Auto mated message] The system which ge nerated this result transmit dewyane reference range : <=37. The reference range was not used to interpr et this result as dallin l/abnormal. [facility]2019-06-10 09:36:00 Test Item Value Reference Range Interpretation Comments Alk Phos (test code = Alk Phos) 284 39-136 [facility]2019-06-10 09:36:00 Test Item Value Reference Range Interpretation Comments Albumin Lvl (test code = Albumin Lvl) 1.8 3.5-5.0 [facility]2019-06-10 09:36:00 Test Item Value Reference Range Interpretation Comments ALT (test code = ALT) 29 See_Comment [Auto mated message] The system which ge nerated this result transmit dewayne reference range : <=65. The reference range was not used to interpr et this result as dallin l/abnormal. [facility]2019-06-10 09:36:00 Test Item Value Reference Range Interpretation Comments Total Protein (test code = Total 6.1 6.4-8.4 Protein) [facility]2019-06-10 09:36:00 Test Item Value Reference Range Interpretation Comments B/C Ratio (test code = B/C Ratio) 31 1 6-25 [facility]2019-06-10 09:36:00 Test Item Value Reference Range Interpretation Comments Bili Total (test code = Bili Total) 0.9 0.2-1.3 [facility]2019-06-10 09:36:00 Test Item Value Reference Range Interpretation Comments A/G Ratio (test code = A/G Ratio) 0.4 1 0.7-1.6 [facility]2019-06-10 09:36:00 Test Item Value Reference Range Interpretation Comments Globulin (test code = Globulin) 4.3 2.7-4.2 [facility]2019-06-10 09:36:00 Test Item Value Reference Range Interpretation Comments AST (test code = AST) 59 See_Comment [Auto mated message] The system which ge nerated this result transmit dewayne reference range : <=37. The reference range was not used to interpr et this result as dallin l/abnormal. [facility]2019-06-10 09:36:00 Test Item Value Reference Range Interpretation Comments Alk Phos (test code = Alk Phos) 284 39-136 [facility]2019-06-10 09:36:00 Test Item Value Reference Range Interpretation Comments Albumin Lvl (test code = Albumin Lvl) 1.8 3.5-5.0 [facility]2019-06-10 09:36:00 Test Item Value Reference Range Interpretation Comments ALT (test code = ALT) 29 See_Comment [Auto mated message] The system which ge nerated this result transmit dewayne reference range : <=65. The reference range was not used to interpr et this result as dallin l/abnormal. [facility]2019-06-10 09:36:00 Test Item Value Reference Range Interpretation Comments Total Protein (test code = Total 6.1 6.4-8.4 Protein) [facility]2019-06-10 09:36:00 Test Item Value Reference Range Interpretation Comments B/C Ratio (test code = B/C Ratio) 31 1 6-25 [facility]2019-06-10 09:36:00 Test Item Value Reference Range Interpretation Comments Bili Total (test code = Bili Total) 0.9 0.2-1.3 [facility]2019-06-10 09:36:00 Test Item Value Reference Range Interpretation Comments A/G Ratio (test code = A/G Ratio) 0.4 1 0.7-1.6 [facility]2019-06-10 09:36:00 Test Item Value Reference Range Interpretation Comments Globulin (test code = Globulin) 4.3 2.7-4.2 [facility]2019-06-10 09:36:00 Test Item Value Reference Range Interpretation Comments AST (test code = AST) 59 See_Comment [Auto mated message] The system which ge nerated this result transmit dewayne reference range : <=37. The reference range was not used to interpr et this result as dallin l/abnormal. [facility]2019-06-10 09:36:00 Test Item Value Reference Range Interpretation Comments Alk Phos (test code = Alk Phos) 284 39-136 [facility]2019-06-10 09:36:00 Test Item Value Reference Range Interpretation Comments Albumin Lvl (test code = Albumin Lvl) 1.8 3.5-5.0 [facility]2019-06-10 09:36:00 Test Item Value Reference Range Interpretation Comments ALT (test code = ALT) 29 See_Comment [Auto mated message] The system which ge nerated this result transmit dewayne reference range : <=65. The reference range was not used to interpr et this result as dallin l/abnormal. [facility]2019-06-10 09:36:00 Test Item Value Reference Range Interpretation Comments Total Protein (test code = Total 6.1 6.4-8.4 Protein) [facility]2019-06-10 09:36:00 Test Item Value Reference Range Interpretation Comments B/C Ratio (test code = B/C Ratio) 31 1 6-25 [facility]2019-06-10 09:36:00 Test Item Value Reference Range Interpretation Comments Bili Total (test code = Bili Total) 0.9 0.2-1.3 [facility]2019-06-10 09:36:00 Test Item Value Reference Range Interpretation Comments A/G Ratio (test code = A/G Ratio) 0.4 1 0.7-1.6 [facility]2019-06-10 09:36:00 Test Item Value Reference Range Interpretation Comments Globulin (test code = Globulin) 4.3 2.7-4.2 [facility]2019-06-10 09:36:00 Test Item Value Reference Range Interpretation Comments AST (test code = AST) 59 See_Comment [Auto mated message] The system which ge nerated this result transmit dewayne reference range : <=37. The reference range was not used to interpr et this result as dallin l/abnormal. [facility]2019-06-10 09:36:00 Test Item Value Reference Range Interpretation Comments Alk Phos (test code = Alk Phos) 284 39-136 [facility]2019-06-10 09:36:00 Test Item Value Reference Range Interpretation Comments Albumin Lvl (test code = Albumin Lvl) 1.8 3.5-5.0 [facility]2019-06-10 09:36:00 Test Item Value Reference Range Interpretation Comments ALT (test code = ALT) 29 See_Comment [Auto mated message] The system which ge nerated this result transmit dewayne reference range : <=65. The reference range was not used to interpr et this result as dallin l/abnormal. [facility]2019-06-10 09:36:00 Test Item Value Reference Range Interpretation Comments Total Protein (test code = Total 6.1 6.4-8.4 Protein) [facility]2019-06-10 09:36:00 Test Item Value Reference Range Interpretation Comments B/C Ratio (test code = B/C Ratio) 31 1 6-25 [facility]2019-06-10 09:36:00 Test Item Value Reference Range Interpretation Comments Bili Total (test code = Bili Total) 0.9 0.2-1.3 [facility]2019-06-10 09:36:00 Test Item Value Reference Range Interpretation Comments A/G Ratio (test code = A/G Ratio) 0.4 1 0.7-1.6 [facility]2019-06-10 09:36:00 Test Item Value Reference Range Interpretation Comments Globulin (test code = Globulin) 4.3 2.7-4.2 [facility]2019-06-10 09:36:00 Test Item Value Reference Range Interpretation Comments AST (test code = AST) 59 See_Comment [Auto mated message] The system which ge nerated this result transmit dewayen reference range : <=37. The reference range was not used to interpr et this result as dallin l/abnormal. [facility]2019-06-10 09:36:00 Test Item Value Reference Range Interpretation Comments Alk Phos (test code = Alk Phos) 284 39-136 [facility]2019-06-10 09:36:00 Test Item Value Reference Range Interpretation Comments Albumin Lvl (test code = Albumin Lvl) 1.8 3.5-5.0 [facility]2019-06-10 09:36:00 Test Item Value Reference Range Interpretation Comments ALT (test code = ALT) 29 See_Comment [Auto mated message] The system which ge nerated this result transmit dewayne reference range : <=65. The reference range was not used to interpr et this result as dallin l/abnormal. [facility]2019-06-10 09:36:00 Test Item Value Reference Range Interpretation Comments Total Protein (test code = Total 6.1 6.4-8.4 Protein) [place] [address]1989-06-10 09:36:00 Test Item Value Reference Range Interpretation Comments B/C Ratio (test code = B/C Ratio) 31 1 6-25 [facility]2019-06-10 09:36:00 Test Item Value Reference Range Interpretation Comments Bili Total (test code = Bili Total) 0.9 0.2-1.3 [place] [address]1989-06-10 09:36:00 Test Item Value Reference Range Interpretation Comments A/G Ratio (test code = A/G Ratio) 0.4 1 0.7-1.6 [facility]2019-06-10 09:36:00 Test Item Value Reference Range Interpretation Comments Globulin (test code = Globulin) 4.3 2.7-4.2 [facility]2019-06-10 09:36:00 Test Item Value Reference Range Interpretation Comments AST (test code = AST) 59 <=37 [facility]2019-06-10 09:36:00 Test Item Value Reference Range Interpretation Comments Alk Phos (test code = Alk Phos) 284 39-136 [facility]2019-06-10 09:36:00 Test Item Value Reference Range Interpretation Comments Albumin Lvl (test code = Albumin Lvl) 1.8 3.5-5.0 [facility]2019-06-10 09:36:00 Test Item Value Reference Range Interpretation Comments ALT (test code = ALT) 29 <=65 [facility]2019-06-10 09:36:00 Test Item Value Reference Range Interpretation Comments Total Protein (test code = Total 6.1 6.4-8.4 Protein) [facility]2019-06-10 09:36:00 Test Item Value Reference Range Interpretation Comments B/C Ratio (test code = B/C Ratio) 31 1 6-25 [facility]2019-06-10 09:36:00 Test Item Value Reference Range Interpretation Comments Bili Total (test code = Bili Total) 0.9 0.2-1.3 [facility]2019-06-10 09:36:00 Test Item Value Reference Range Interpretation Comments A/G Ratio (test code = A/G Ratio) 0.4 1 0.7-1.6 [facility]2019-06-10 09:36:00 Test Item Value Reference Range Interpretation Comments Globulin (test code = Globulin) 4.3 2.7-4.2 [facility]2019-06-10 09:36:00 Test Item Value Reference Range Interpretation Comments AST (test code = AST) 59 See_Comment [Auto mated message] The system which ge nerated this result transmit dewayne reference range : <=37. The reference range was not used to interpr et this result as dallin l/abnormal. [facility]2019-06-10 09:36:00 Test Item Value Reference Range Interpretation Comments Alk Phos (test code = Alk Phos) 284 39-136 [facility]2019-06-10 09:36:00 Test Item Value Reference Range Interpretation Comments Albumin Lvl (test code = Albumin Lvl) 1.8 3.5-5.0 [facility]2019-06-10 09:36:00 Test Item Value Reference Range Interpretation Comments ALT (test code = ALT) 29 See_Comment [Auto mated message] The system which ge nerated this result transmit dewayne reference range : <=65. The reference range was not used to interpr et this result as dallin l/abnormal. [facility]2019-06-10 09:36:00 Test Item Value Reference Range Interpretation Comments Total Protein (test code = Total 6.1 6.4-8.4 Protein) [facility]2019-06-10 09:36:00 Test Item Value Reference Range Interpretation Comments B/C Ratio (test code = B/C Ratio) 31 1 6-25 [facility]2019-06-10 09:36:00 Test Item Value Reference Range Interpretation Comments Bili Total (test code = Bili Total) 0.9 0.2-1.3 [facility]2019-06-10 09:36:00 Test Item Value Reference Range Interpretation Comments A/G Ratio (test code = A/G Ratio) 0.4 1 0.7-1.6 [facility]2019-06-10 09:36:00 Test Item Value Reference Range Interpretation Comments Globulin (test code = Globulin) 4.3 2.7-4.2 [facility]2019-06-10 09:36:00 Test Item Value Reference Range Interpretation Comments AST (test code = AST) 59 See_Comment [Auto mated message] The system which ge nerated this result transmit dewayne reference range : <=37. The reference range was not used to interpr et this result as dallin l/abnormal. [facility]2019-06-10 09:36:00 Test Item Value Reference Range Interpretation Comments Alk Phos (test code = Alk Phos) 284 39-136 [facility]2019-06-10 09:36:00 Test Item Value Reference Range Interpretation Comments Albumin Lvl (test code = Albumin Lvl) 1.8 3.5-5.0 [id number] 09:36:00 Test Item Value Reference Range Interpretation Comments ALT (test code = ALT) 29 See_Comment [Auto mated message] The system which ge nerated this result transmit dewayne reference range : <=65. The reference range was not used to interpr et this result as dallin l/abnormal. [facility]2019-06-10 09:36:00 Test Item Value Reference Range Interpretation Comments Total Protein (test code = Total 6.1 6.4-8.4 Protein) [facility]2019-06-10 09:36:00 Test Item Value Reference Range Interpretation Comments B/C Ratio (test code = B/C Ratio) 31 1 6-25 [facility]2019-06-10 09:36:00 Test Item Value Reference Range Interpretation Comments Bili Total (test code = Bili Total) 0.9 0.2-1.3 [facility]2019-06-10 09:36:00 Test Item Value Reference Range Interpretation Comments A/G Ratio (test code = A/G Ratio) 0.4 1 0.7-1.6 [facility]2019-06-10 09:36:00 Test Item Value Reference Range Interpretation Comments Globulin (test code = Globulin) 4.3 2.7-4.2 [facility]2019-06-10 09:36:00 Test Item Value Reference Range Interpretation Comments AST (test code = AST) 59 See_Comment [Auto mated message] The system which ge nerated this result transmit dewayne reference range : <=37. The reference range was not used to interpr et this result as dallin l/abnormal. [facility]2019-06-10 09:36:00 Test Item Value Reference Range Interpretation Comments Alk Phos (test code = Alk Phos) 284 39-136 [facility]2019-06-10 09:36:00 Test Item Value Reference Range Interpretation Comments Albumin Lvl (test code = Albumin Lvl) 1.8 3.5-5.0 [facility]2019-06-10 09:36:00 Test Item Value Reference Range Interpretation Comments ALT (test code = ALT) 29 See_Comment [Auto mated message] The system which ge nerated this result transmit dewayne reference range : <=65. The reference range was not used to interpr et this result as dallin l/abnormal. [facility]2019-06-10 09:36:00 Test Item Value Reference Range Interpretation Comments Total Protein (test code = Total 6.1 6.4-8.4 Protein) [facility]2019-06-10 09:36:00 Test Item Value Reference Range Interpretation Comments B/C Ratio (test code = B/C Ratio) 31 1 6-25 [facility]2019-06-10 09:36:00 Test Item Value Reference Range Interpretation Comments Bili Total (test code = Bili Total) 0.9 0.2-1.3 [facility]2019-06-10 09:36:00 Test Item Value Reference Range Interpretation Comments A/G Ratio (test code = A/G Ratio) 0.4 1 0.7-1.6 [facility]2019-06-10 09:36:00 Test Item Value Reference Range Interpretation Comments Globulin (test code = Globulin) 4.3 2.7-4.2 [facility]2019-06-10 09:36:00 Test Item Value Reference Range Interpretation Comments AST (test code = AST) 59 See_Comment [Auto mated message] The system which ge nerated this result transmit dewayne reference range : <=37. The reference range was not used to interpr et this result as dallin l/abnormal. [facility]2019-06-10 09:36:00 Test Item Value Reference Range Interpretation Comments Alk Phos (test code = Alk Phos) 284 39-136 [facility]2019-06-10 09:36:00 Test Item Value Reference Range Interpretation Comments Albumin Lvl (test code = Albumin Lvl) 1.8 3.5-5.0 [facility]2019-06-10 09:36:00 Test Item Value Reference Range Interpretation Comments ALT (test code = ALT) 29 See_Comment [Auto mated message] The system which ge nerated this result transmit dewayne reference range : <=65. The reference range was not used to interpr et this result as dallin l/abnormal. [facility]2019-06-10 09:36:00 Test Item Value Reference Range Interpretation Comments Total Protein (test code = Total 6.1 6.4-8.4 Protein) [facility]2019-06-10 09:36:00 Test Item Value Reference Range Interpretation Comments B/C Ratio (test code = B/C Ratio) 31 1 6-25 [place] [address]1989-06-10 09:36:00 Test Item Value Reference Range Interpretation Comments Bili Total (test code = Bili Total) 0.9 0.2-1.3 [facility]2019-06-10 09:36:00 Test Item Value Reference Range Interpretation Comments A/G Ratio (test code = A/G Ratio) 0.4 1 0.7-1.6 [facility]2019-06-10 09:36:00 Test Item Value Reference Range Interpretation Comments Globulin (test code = Globulin) 4.3 2.7-4.2 [facility]2019-06-10 09:36:00 Test Item Value Reference Range Interpretation Comments AST (test code = AST) 59 See_Comment [Auto mated message] The system which ge nerated this result transmit dewayne reference range : <=37. The reference range was not used to interpr et this result as dallin l/abnormal. [facility]2019-06-10 09:36:00 Test Item Value Reference Range Interpretation Comments Alk Phos (test code = Alk Phos) 284 39-136 [facility]2019-06-10 09:36:00 Test Item Value Reference Range Interpretation Comments Albumin Lvl (test code = Albumin Lvl) 1.8 3.5-5.0 [facility]2019-06-10 09:36:00 Test Item Value Reference Range Interpretation Comments ALT (test code = ALT) 29 See_Comment [Auto mated message] The system which ge nerated this result transmit dewayne reference range : <=65. The reference range was not used to interpr et this result as dallin l/abnormal. [facility]2019-06-10 09:36:00 Test Item Value Reference Range Interpretation Comments AST (test code = AST) 59 See_Comment [Auto mated message] The system which ge nerated this result transmit dewayne reference range : <=37. The reference range was not used to interpr et this result as dallin l/abnormal. [facility]2019-06-10 09:36:00 Test Item Value Reference Range Interpretation Comments Alk Phos (test code = Alk Phos) 284 39-136 [facility]2019-06-10 09:36:00 Test Item Value Reference Range Interpretation Comments Albumin Lvl (test code = Albumin Lvl) 1.8 3.5-5.0 [facility]2019-06-10 09:36:00 Test Item Value Reference Range Interpretation Comments ALT (test code = ALT) 29 See_Comment [Auto mated message] The system which ge nerated this result transmit dewayne reference range : <=65. The reference range was not used to interpr et this result as dallin l/abnormal. [facility]2019-06-10 09:36:00 Test Item Value Reference Range Interpretation Comments Total Protein (test code = Total 6.1 6.4-8.4 Protein) [facility]2019-06-10 09:36:00 Test Item Value Reference Range Interpretation Comments B/C Ratio (test code = B/C Ratio) 31 1 03-09 [facility]2019-06-10 09:36:00 Test Item Value Reference Range Interpretation Comments Bili Total (test code = Bili Total) 0.9 0.2-1.3 [facility]2019-06-10 09:36:00 Test Item Value Reference Range Interpretation Comments Total Protein (test code = Total 6.1 6.4-8.4 Protein) [facility]2019-06-10 09:36:00 Test Item Value Reference Range Interpretation Comments A/G Ratio (test code = A/G Ratio) 0.4 1 0.7-1.6 [facility]2019-06-10 09:36:00 Test Item Value Reference Range Interpretation Comments Globulin (test code = Globulin) 4.3 2.7-4.2 [facility]2019-06-10 09:36:00 Test Item Value Reference Range Interpretation Comments B/C Ratio (test code = B/C Ratio) 31 1 03-09 [facility]2019-06-10 09:36:00 Test Item Value Reference Range Interpretation Comments Bili Total (test code = Bili Total) 0.9 0.2-1.3 [facility]2019-06-10 09:36:00 Test Item Value Reference Range Interpretation Comments A/G Ratio (test code = A/G Ratio) 0.4 1 0.7-1.6 [facility]2019-06-10 09:36:00 Test Item Value Reference Range Interpretation Comments Globulin (test code = Globulin) 4.3 2.7-4.2 [facility]2019-06-10 09:36:00 Test Item Value Reference Range Interpretation Comments AST (test code = AST) 59 See_Comment [Auto mated message] The system which ge nerated this result transmit dewayne reference range : <=37. The reference range was not used to interpr et this result as dallin l/abnormal. [facility]2019-06-10 09:36:00 Test Item Value Reference Range Interpretation Comments Alk Phos (test code = Alk Phos) 284 39-136 [facility]2019-06-10 09:36:00 Test Item Value Reference Range Interpretation Comments Albumin Lvl (test code = Albumin Lvl) 1.8 3.5-5.0 [facility]2019-06-10 09:36:00 Test Item Value Reference Range Interpretation Comments ALT (test code = ALT) 29 See_Comment [Auto mated message] The system which ge nerated this result transmit dewayne reference range : <=65. The reference range was not used to interpr et this result as dallin l/abnormal. [facility]2019-06-10 09:36:00 Test Item Value Reference Range Interpretation Comments Total Protein (test code = Total 6.1 6.4-8.4 Protein) [facility]2019-06-10 09:36:00 Test Item Value Reference Range Interpretation Comments B/C Ratio (test code = B/C Ratio) 31 1 6-25 [facility]2019-06-10 09:36:00 Test Item Value Reference Range Interpretation Comments Bili Total (test code = Bili Total) 0.9 0.2-1.3 [place] [address]1989-06-10 09:36:00 Test Item Value Reference Range Interpretation Comments A/G Ratio (test code = A/G Ratio) 0.4 1 0.7-1.6 [place] [address]1989-06-10 09:36:00 Test Item Value Reference Range Interpretation Comments Globulin (test code = Globulin) 4.3 2.7-4.2 [facility]2019-06-10 09:36:00 Test Item Value Reference Range Interpretation Comments AST (test code = AST) 59 See_Comment [Auto mated message] The system which ge nerated this result transmit dewayne reference range : <=37. The reference range was not used to interpr et this result as dallin l/abnormal. [facility]2019-06-10 09:36:00 Test Item Value Reference Range Interpretation Comments Alk Phos (test code = Alk Phos) 284 39-136 [facility]2019-06-10 09:36:00 Test Item Value Reference Range Interpretation Comments Albumin Lvl (test code = Albumin Lvl) 1.8 3.5-5.0 [facility]2019-06-10 09:36:00 Test Item Value Reference Range Interpretation Comments ALT (test code = ALT) 29 See_Comment [Auto mated message] The system which ge nerated this result transmit dewayne reference range : <=65. The reference range was not used to interpr et this result as dallin l/abnormal. [facility]2019-06-10 09:36:00 Test Item Value Reference Range Interpretation Comments Total Protein (test code = Total 6.1 6.4-8.4 Protein) [place] [address]1989-06-10 09:36:00 Test Item Value Reference Range Interpretation Comments B/C Ratio (test code = B/C Ratio) 31 1 6-25 [place] 781989-06-10 09:36:00 Test Item Value Reference Range Interpretation Comments Bili Total (test code = Bili Total) 0.9 0.2-1.3 [facility]2019-06-10 09:36:00 Test Item Value Reference Range Interpretation Comments A/G Ratio (test code = A/G Ratio) 0.4 1 0.7-1.6 [place] [address]-06-10 09:36:00 Test Item Value Reference Range Interpretation Comments Globulin (test code = Globulin) 4.3 2.7-4.2 [place] [address]-06-10 09:36:00 Test Item Value Reference Range Interpretation Comments AST (test code = AST) 59 See_Comment [Auto mated message] The system which ge nerated this result transmit dewayne reference range : <=37. The reference range was not used to interpr et this result as dallin l/abnormal. [facility]2019-06-10 09:36:00 Test Item Value Reference Range Interpretation Comments Alk Phos (test code = Alk Phos) 284 39-136 [facility]2019-06-10 09:36:00 Test Item Value Reference Range Interpretation Comments Albumin Lvl (test code = Albumin Lvl) 1.8 3.5-5.0 [facility]2019-06-10 09:36:00 Test Item Value Reference Range Interpretation Comments ALT (test code = ALT) 29 See_Comment [Auto mated message] The system which ge nerated this result transmit dewayne reference range : <=65. The reference range was not used to interpr et this result as dallin l/abnormal. [facility]2019-06-10 09:36:00 Test Item Value Reference Range Interpretation Comments Total Protein (test code = Total 6.1 6.4-8.4 Protein) [facility]2019-06-10 09:36:00 Test Item Value Reference Range Interpretation Comments B/C Ratio (test code = B/C Ratio) 31 1 6-25 [facility]2019-06-10 09:36:00 Test Item Value Reference Range Interpretation Comments Bili Total (test code = Bili Total) 0.9 0.2-1.3 [facility]2019-06-10 09:36:00 Test Item Value Reference Range Interpretation Comments A/G Ratio (test code = A/G Ratio) 0.4 1 0.7-1.6 [facility]2019-06-10 09:36:00 Test Item Value Reference Range Interpretation Comments Globulin (test code = Globulin) 4.3 2.7-4.2 [facility]2019-06-10 09:36:00 Test Item Value Reference Range Interpretation Comments AST (test code = AST) 59 See_Comment [Auto mated message] The system which ge nerated this result transmit dewayne reference range : <=37. The reference range was not used to interpr et this result as dallin l/abnormal. [facility]2019-06-10 09:36:00 Test Item Value Reference Range Interpretation Comments Alk Phos (test code = Alk Phos) 284 39-136 [facility]2019-06-10 09:36:00 Test Item Value Reference Range Interpretation Comments Albumin Lvl (test code = Albumin Lvl) 1.8 3.5-5.0 [facility]2019-06-10 09:36:00 Test Item Value Reference Range Interpretation Comments ALT (test code = ALT) 29 See_Comment [Auto mated message] The system which ge nerated this result transmit dewayne reference range : <=65. The reference range was not used to interpr et this result as dallin l/abnormal. [facility]2019-06-10 09:36:00 Test Item Value Reference Range Interpretation Comments Total Protein (test code = Total 6.1 6.4-8.4 Protein) [facility]2019-06-10 09:36:00 Test Item Value Reference Range Interpretation Comments B/C Ratio (test code = B/C Ratio) 31 1 6-25 [facility]2019-06-10 09:36:00 Test Item Value Reference Range Interpretation Comments Bili Total (test code = Bili Total) 0.9 0.2-1.3 [facility]2019-06-10 09:36:00 Test Item Value Reference Range Interpretation Comments A/G Ratio (test code = A/G Ratio) 0.4 1 0.7-1.6 [facility]2019-06-10 09:36:00 Test Item Value Reference Range Interpretation Comments Globulin (test code = Globulin) 4.3 2.7-4.2 [facility]2019-06-10 09:36:00 Test Item Value Reference Range Interpretation Comments AST (test code = AST) 59 See_Comment [Auto mated message] The system which ge nerated this result transmit dewayne reference range : <=37. The reference range was not used to interpr et this result as dallin l/abnormal. [facility]2019-06-10 09:36:00 Test Item Value Reference Range Interpretation Comments Alk Phos (test code = Alk Phos) 284 39-136 [facility]2019-06-10 09:36:00 Test Item Value Reference Range Interpretation Comments Albumin Lvl (test code = Albumin Lvl) 1.8 3.5-5.0 [facility]2019-06-10 09:36:00 Test Item Value Reference Range Interpretation Comments ALT (test code = ALT) 29 See_Comment [Auto mated message] The system which ge nerated this result transmit dewayne reference range : <=65. The reference range was not used to interpr et this result as dallin l/abnormal. [facility]2019-06-10 09:36:00 Test Item Value Reference Range Interpretation Comments Total Protein (test code = Total 6.1 6.4-8.4 Protein) [facility]2019-06-10 09:36:00 Test Item Value Reference Range Interpretation Comments B/C Ratio (test code = B/C Ratio) 31 1 6-25 [place] [address]1989-06-10 09:36:00 Test Item Value Reference Range Interpretation Comments Bili Total (test code = Bili Total) 0.9 0.2-1.3 [facility]2019-06-10 09:36:00 Test Item Value Reference Range Interpretation Comments A/G Ratio (test code = A/G Ratio) 0.4 1 0.7-1.6 [facility]2019-06-10 09:36:00 Test Item Value Reference Range Interpretation Comments Globulin (test code = Globulin) 4.3 2.7-4.2 [facility]2019-06-10 09:36:00 Test Item Value Reference Range Interpretation Comments AST (test code = AST) 59 See_Comment [Auto mated message] The system which ge nerated this result transmit dewayne reference range : <=37. The reference range was not used to interpr et this result as dallin l/abnormal. [facility]2019-06-10 09:36:00 Test Item Value Reference Range Interpretation Comments Alk Phos (test code = Alk Phos) 284 39-136 [facility]2019-06-10 09:36:00 Test Item Value Reference Range Interpretation Comments Albumin Lvl (test code = Albumin Lvl) 1.8 3.5-5.0 [facility]2019-06-10 09:36:00 Test Item Value Reference Range Interpretation Comments ALT (test code = ALT) 29 See_Comment [Auto mated message] The system which ge nerated this result transmit dewayne reference range : <=65. The reference range was not used to interpr et this result as dallin l/abnormal. [facility]2019-06-10 09:36:00 Test Item Value Reference Range Interpretation Comments Total Protein (test code = Total 6.1 6.4-8.4 Protein) [facility]2019-06-10 09:36:00 Test Item Value Reference Range Interpretation Comments B/C Ratio (test code = B/C Ratio) 31 1 6-25 [facility]2019-06-10 09:36:00 Test Item Value Reference Range Interpretation Comments Bili Total (test code = Bili Total) 0.9 0.2-1.3 [facility]2019-06-10 09:36:00 Test Item Value Reference Range Interpretation Comments A/G Ratio (test code = A/G Ratio) 0.4 1 0.7-1.6 [facility]2019-06-10 09:36:00 Test Item Value Reference Range Interpretation Comments Globulin (test code = Globulin) 4.3 2.7-4.2 [facility]2019-06-10 09:36:00 Test Item Value Reference Range Interpretation Comments AST (test code = AST) 59 See_Comment [Auto mated message] The system which ge nerated this result transmit dewayne reference range : <=37. The reference range was not used to interpr et this result as dallin l/abnormal. [facility]2019-06-10 09:36:00 Test Item Value Reference Range Interpretation Comments Alk Phos (test code = Alk Phos) 284 39-136 [facility]2019-06-10 09:36:00 Test Item Value Reference Range Interpretation Comments Albumin Lvl (test code = Albumin Lvl) 1.8 3.5-5.0 [facility]2019-06-10 09:36:00 Test Item Value Reference Range Interpretation Comments ALT (test code = ALT) 29 See_Comment [Auto mated message] The system which ge nerated this result transmit dewayne reference range : <=65. The reference range was not used to interpr et this result as dallin l/abnormal. [facility]2019-06-10 09:36:00 Test Item Value Reference Range Interpretation Comments Total Protein (test code = Total 6.1 6.4-8.4 Protein) [facility]2019-06-10 09:36:00 Test Item Value Reference Range Interpretation Comments B/C Ratio (test code = B/C Ratio) 31 1 6-25 [facility]2019-06-10 09:36:00 Test Item Value Reference Range Interpretation Comments Bili Total (test code = Bili Total) 0.9 0.2-1.3 [facility]2019-06-10 09:36:00 Test Item Value Reference Range Interpretation Comments A/G Ratio (test code = A/G Ratio) 0.4 1 0.7-1.6 [facility]2019-06-10 09:36:00 Test Item Value Reference Range Interpretation Comments Globulin (test code = Globulin) 4.3 2.7-4.2 [facility]2019-06-10 09:36:00 Test Item Value Reference Range Interpretation Comments AST (test code = AST) 59 See_Comment [Auto mated message] The system which ge nerated this result transmit dewayne reference range : <=37. The reference range was not used to interpr et this result as dallin l/abnormal. [facility]2019-06-10 09:36:00 Test Item Value Reference Range Interpretation Comments Alk Phos (test code = Alk Phos) 284 39-136 [facility]2019-06-10 09:36:00 Test Item Value Reference Range Interpretation Comments Albumin Lvl (test code = Albumin Lvl) 1.8 3.5-5.0 [facility]2019-06-10 09:36:00 Test Item Value Reference Range Interpretation Comments ALT (test code = ALT) 29 See_Comment [Auto mated message] The system which ge nerated this result transmit dewayne reference range : <=65. The reference range was not used to interpr et this result as dallin l/abnormal. [facility]2019-06-10 09:36:00 Test Item Value Reference Range Interpretation Comments Total Protein (test code = Total 6.1 6.4-8.4 Protein) [facility]2019-06-10 09:36:00 Test Item Value Reference Range Interpretation Comments B/C Ratio (test code = B/C Ratio) 31 1 6-25 [facility]2019-06-10 09:36:00 Test Item Value Reference Range Interpretation Comments Bili Total (test code = Bili Total) 0.9 0.2-1.3 [facility]2019-06-10 09:36:00 Test Item Value Reference Range Interpretation Comments A/G Ratio (test code = A/G Ratio) 0.4 1 0.7-1.6 [facility]2019-06-10 09:36:00 Test Item Value Reference Range Interpretation Comments Globulin (test code = Globulin) 4.3 2.7-4.2 [facility]2019-06-10 09:36:00 Test Item Value Reference Range Interpretation Comments AST (test code = AST) 59 See_Comment [Auto mated message] The system which ge nerated this result transmit dewayne reference range : <=37. The reference range was not used to interpr et this result as dallin l/abnormal. [facility]2019-06-10 09:36:00 Test Item Value Reference Range Interpretation Comments Alk Phos (test code = Alk Phos) 284 39-136 [facility]2019-06-10 09:36:00 Test Item Value Reference Range Interpretation Comments Albumin Lvl (test code = Albumin Lvl) 1.8 3.5-5.0 [facility]2019-06-10 09:36:00 Test Item Value Reference Range Interpretation Comments ALT (test code = ALT) 29 See_Comment [Auto mated message] The system which ge nerated this result transmit dewayne reference range : <=65. The reference range was not used to interpr et this result as dallin l/abnormal. [facility]2019-06-10 09:36:00 Test Item Value Reference Range Interpretation Comments Total Protein (test code = Total 6.1 6.4-8.4 Protein) [facility]2019-06-10 09:36:00 Test Item Value Reference Range Interpretation Comments B/C Ratio (test code = B/C Ratio) 31 1 6-25 [facility]2019-06-10 09:36:00 Test Item Value Reference Range Interpretation Comments Bili Total (test code = Bili Total) 0.9 0.2-1.3 [facility] [id number] 09:36:00 Test Item Value Reference Range Interpretation Comments A/G Ratio (test code = A/G Ratio) 0.4 1 0.7-1.6 [facility]CHE[facility] [id number] 09:36:00 Test Item Value Reference Range Interpretation Comments Globulin (test code = Globulin) 4.3 2.7-4.2 [facility] HospitalM[id number] 01:23:00 Test Item Value Reference Range Interpretation Comments Vanco Tr TND (test code = Vanco Tr 2100 1 TND) [facility] HospitalWyubczlZUBZNROQIJ0089-36-82 01:23:00 Test Item Value Reference Range Interpretation Comments Vanco Tr (test code = Vanco Tr) 36.8 [facility] HospitalKavcyxuVBFSCAFOGM6849-50-75 01:23:00 Test Item Value Reference Range Interpretation Comments Vanco Tr TND (test code = Vanco Tr 2100 1 TND) [facility] HospitalYkbrqklPDSGCIEKWT1764-35-94 01:23:00 Test Item Value Reference Range Interpretation Comments Vanco Tr (test code = Vanco Tr) 36.8 [facility] HospitalVleepchBEDBCAAIAT5250-43-57 01:23:00 Test Item Value Reference Range Interpretation Comments Vanco Tr TND (test code = Vanco Tr 2100 1 TND) [facility] HospitalEeozxpeMHEBATPBIL0659-10-87 01:23:00 Test Item Value Reference Range Interpretation Comments Vanco Tr (test code = Vanco Tr) 36.8 [facility] HospitalEfayvkeIPNRVEFMBQ5543-46-22 01:23:00 Test Item Value Reference Range Interpretation Comments Vanco Tr TND (test code = Vanco Tr 2100 1 TND) [facility] HospitalDvertinILJATHJDFX9206-68-58 01:23:00 Test Item Value Reference Range Interpretation Comments Vanco Tr (test code = Vanco Tr) 36.8 [facility] HospitalZrexqmfMMNUMGQPPP8770-48-55 01:23:00 Test Item Value Reference Range Interpretation Comments Vanco Tr TND (test code = Vanco Tr 2100 1 TND) [facility] HospitalNpcivxxDSQVQRWEDF3359-28-30 01:23:00 Test Item Value Reference Range Interpretation Comments Vanco Tr (test code = Vanco Tr) 36.8 [facility] RpkibcxNJJSKEBFGD8973-81-21 01:23:00 Test Item Value Reference Range Interpretation Comments Vanco Tr TND (test code = Vanco Tr 2100 1 TND) [facility] HospitalYnzzumgFDVDQAQPJY6591-91-64 01:23:00 Test Item Value Reference Range Interpretation Comments Vanco Tr (test code = Vanco Tr) 36.8 [facility] HospitalLgqpxqpMLORIVNJNY6948-92-71 01:23:00 Test Item Value Reference Range Interpretation Comments Vanco Tr TND (test code = Vanco Tr 2100 1 TND) [facility] HospitalAdkrlahNRTHBNGZLN4284-92-88 01:23:00 Test Item Value Reference Range Interpretation Comments Vanco Tr (test code = Vanco Tr) 36.8 [facility] HospitalJkbjvmsSBFJAWRTJX4528-94-88 01:23:00 Test Item Value Reference Range Interpretation Comments Vanco Tr TND (test code = Vanco Tr 2100 1 TND) [facility] HospitalQvvmybcASADDZAGEE9546-46-42 01:23:00 Test Item Value Reference Range Interpretation Comments Vanco Tr (test code = Vanco Tr) 36.8 [facility] HospitalOtpnlkjKUVRABGJLW9358-50-14 01:23:00 Test Item Value Reference Range Interpretation Comments Vanco Tr TND (test code = Vanco Tr 2100 1 TND) [facility] HospitalVbewrynXYHBEUZQDV2272-48-21 01:23:00 Test Item Value Reference Range Interpretation Comments Vanco Tr (test code = Vanco Tr) 36.8 [facility] HospitalSjafegnWKSXFTJKCU4992-77-87 01:23:00 Test Item Value Reference Range Interpretation Comments Vanco Tr TND (test code = Vanco Tr 2100 1 TND) [facility] HospitalQlwopkaVQDZCGNXVU4275-88-78 01:23:00 Test Item Value Reference Range Interpretation Comments Vanco Tr (test code = Vanco Tr) 36.8 [facility] HospitalRezhuimTBYNIAYCJT3613-28-80 01:23:00 Test Item Value Reference Range Interpretation Comments Vanco Tr TND (test code = Vanco Tr 2100 1 TND) [facility] HospitalQloosxpPKLZJFEZZU4227-83-09 01:23:00 Test Item Value Reference Range Interpretation Comments Vanco Tr (test code = Vanco Tr) 36.8 [facility] HospitalFzylplvUPLWZWVQNM9134-13-89 01:23:00 Test Item Value Reference Range Interpretation Comments Vanco Tr TND (test code = Vanco Tr 2100 1 TND) [facility] HospitalEgyhnonJPSLYNVAXU5773-87-48 01:23:00 Test Item Value Reference Range Interpretation Comments Vanco Tr (test code = Vanco Tr) 36.8 [facility] HospitalBqrjpjmRIRWUEXIPS1333-66-58 01:23:00 Test Item Value Reference Range Interpretation Comments Vanco Tr TND (test code = Vanco Tr 2100 1 TND) [facility] HospitalFktrnilKLGHQUELIF2161-50-40 01:23:00 Test Item Value Reference Range Interpretation Comments Vanco Tr (test code = Vanco Tr) 36.8 [facility] HospitalOwvezoqUSDDNXBOXS4135-91-67 01:23:00 Test Item Value Reference Range Interpretation Comments Vanco Tr TND (test code = Vanco Tr 2100 1 TND) [facility] HospitalVrllfxeROSOFGJMSC9429-01-14 01:23:00 Test Item Value Reference Range Interpretation Comments Vanco Tr (test code = Vanco Tr) 36.8 [facility] HospitalDqiamlpATCZTMZVDM5642-06-04 01:23:00 Test Item Value Reference Range Interpretation Comments Vanco Tr TND (test code = Vanco Tr 2100 1 TND) [facility] HospitalHjsuyktPCMMCAYDJA7552-31-94 01:23:00 Test Item Value Reference Range Interpretation Comments Vanco Tr (test code = Vanco Tr) 36.8 [facility] HospitalZuaxtmlHNMNNCPBVR3870-49-93 01:23:00 Test Item Value Reference Range Interpretation Comments Vanco Tr TND (test code = Vanco Tr 2100 1 TND) [facility] HospitalOcwcraaXTPSZWHAZC4901-45-77 01:23:00 Test Item Value Reference Range Interpretation Comments Vanco Tr (test code = Vanco Tr) 36.8 [facility] HospitalOpfkugbBBJWPVEEMB5825-76-28 01:23:00 Test Item Value Reference Range Interpretation Comments Vanco Tr TND (test code = Vanco Tr 2100 1 TND) [facility] HospitalCkxncikPJXMSUMTGC1551-84-43 01:23:00 Test Item Value Reference Range Interpretation Comments Vanco Tr (test code = Vanco Tr) 36.8 [facility] HospitalZnyusezKYSHWJEYDF8233-98-88 01:23:00 Test Item Value Reference Range Interpretation Comments Vanco Tr TND (test code = Vanco Tr 2100 1 TND) [facility]FqfmkyoKDJTSSNITJ1189-44-78 01:23:00 Test Item Value Reference Range Interpretation Comments Vanco Tr (test code = Vanco Tr) 36.8 [facility] HospitalRloeztjDXRVYTAKTA1473-88-69 01:23:00 Test Item Value Reference Range Interpretation Comments Vanco Tr TND (test code = Vanco Tr 2100 1 TND) [facility] HospitalJudbtsbBRSOUEUDFV0498-22-86 01:23:00 Test Item Value Reference Range Interpretation Comments Vanco Tr (test code = Vanco Tr) 36.8 [facility] HospitalPxmhmsfLCJQOHZHOT7119-81-37 01:23:00 Test Item Value Reference Range Interpretation Comments Vanco Tr TND (test code = Vanco Tr 2100 1 TND) [id number] 01:23:00 Test Item Value Reference Range Interpretation Comments Vanco Tr (test code = Vanco Tr) 36.8 [facility] HospitalLqboqaqCYBNHJBFCS8553-40-80 01:23:00 Test Item Value Reference Range Interpretation Comments Vanco Tr TND (test code = Vanco Tr 2100 1 TND) [facility]QCNFYQHCHE1512-95-60 01:23:00 Test Item Value Reference Range Interpretation Comments Vanco Tr (test code = Vanco Tr) 36.8 [facility] HospitalVykukzzODROCWKIPJ8132-51-29 01:23:00 Test Item Value Reference Range Interpretation Comments Vanco Tr TND (test code = Vanco Tr 2100 1 TND) [facility] HospitalMryxbccQZHHQUSYSR0654-96-38 01:23:00 Test Item Value Reference Range Interpretation Comments Vanco Tr (test code = Vanco Tr) 36.8 [facility] HospitalTosvyrpGCQMHZNGJQ7608-04-37 01:23:00 Test Item Value Reference Range Interpretation Comments Vanco Tr TND (test code = Vanco Tr 2100 1 TND) [facility]ZejfjjrRBFANXKUAV4834-43-52 01:23:00 Test Item Value Reference Range Interpretation Comments Vanco Tr (test code = Vanco Tr) 36.8 [facility] H[id number] 01:23:00 Test Item Value Reference Range Interpretation Comments Vanco Tr TND (test code = Vanco Tr 2100 1 TND) [facility]UpwdwbeGDCGQVLSMA1196-62-47 01:23:00 Test Item Value Reference Range Interpretation Comments Vanco Tr (test code = Vanco Tr) 36.8 [facility] CenterOfamwgdABYJWSWKYK0439-20-81 01:23:00 Test Item Value Reference Range Interpretation Comments Vanco Tr TND (test code = Vanco Tr 2100 1 TND) [facility] CenterZamsqqwUTXOAHMREZ8048-12-36 01:23:00 Test Item Value Reference Range Interpretation Comments Vanco Tr (test code = Vanco Tr) 36.8 [facility] CenterYulybqsQESIHCTKSD1874-81-23 01:23:00 Test Item Value Reference Range Interpretation Comments Vanco Tr TND (test code = Vanco Tr 2100 1 TND) [place] [id number] 01:23:00 Test Item Value Reference Range Interpretation Comments Vanco Tr (test code = Vanco Tr) 36.8 [facility] HospitalVegdjdzUVYTVJIEYO5440-65-64 01:23:00 Test Item Value Reference Range Interpretation Comments Vanco Tr TND (test code = Vanco Tr 2100 1 TND) [place] [id number] 01:23:00 Test Item Value Reference Range Interpretation Comments Vanco Tr (test code = Vanco Tr) 36.8 [facility]qercpiDPKSFEOWKP7446-65-25 07:26:00 Test Item Value Reference Range Interpretation Comments PTT (test code = PTT) 59.6 s 22.9-35.8 [facility]RzlvhupQBNTSZBFRP9071-34-16 07:26:00 Test Item Value Reference Range Interpretation Comments PTT (test code = PTT) 59.6 s 22.9-35.8 [facility]KiyjbfuKIQEBJPTGJ6025-40-09 07:26:00 Test Item Value Reference Range Interpretation Comments PTT (test code = PTT) 59.6 s 22.9-35.8 [facility] NortheastLusvuivEHNIYIMBAX5013-68-54 07:26:00 Test Item Value Reference Range Interpretation Comments PTT (test code = PTT) 59.6 s 22.9-35.8 [facility]PpqtkixXBZFJHOPVC7314-50-65 07:26:00 Test Item Value Reference Range Interpretation Comments PTT (test code = PTT) 59.6 s 22.9-35.8 [facility] NortheastAkknpbyERTFISLLSW7282-70-65 07:26:00 Test Item Value Reference Range Interpretation Comments PTT (test code = PTT) 59.6 s 22.9-35.8 [facility] NortheastMpuhcabXBKYDKLLKK4743-31-04 07:26:00 Test Item Value Reference Range Interpretation Comments PTT (test code = PTT) 59.6 s 22.9-35.8 [facility] NortheastFyaeyfcPVXVRTYGEF5149-73-75 07:26:00 Test Item Value Reference Range Interpretation Comments PTT (test code = PTT) 59.6 s 22.9-35.8 [facility] NortheastBzjgvojZEEKOGWZGY6505-39-22 07:26:00 Test Item Value Reference Range Interpretation Comments PTT (test code = PTT) 59.6 s 22.9-35.8 [facility] NortheastWquvfirEIXNUKKIVI0827-17-06 07:26:00 Test Item Value Reference Range Interpretation Comments PTT (test code = PTT) 59.6 s 22.9-35.8 [facility] NortheastRrmjlbxLFRTYALLNY8318-16-24 07:26:00 Test Item Value Reference Range Interpretation Comments PTT (test code = PTT) 59.6 s 22.9-35.8 [facility]VcxtwdqNUFEAGZVFX7584-40-04 07:26:00 Test Item Value Reference Range Interpretation Comments PTT (test code = PTT) 59.6 s 22.9-35.8 [facility] NortheastJvemgrjTBUZBMQLZU0600-25-16 07:26:00 Test Item Value Reference Range Interpretation Comments PTT (test code = PTT) 59.6 s 22.9-35.8 [facility] NortheastMisycufDYQSABDPIK1186-98-12 07:26:00 Test Item Value Reference Range Interpretation Comments PTT (test code = PTT) 59.6 s 22.9-35.8 [facility] NortheastKvabqkfIDCUETYXXQ3785-35-33 07:26:00 Test Item Value Reference Range Interpretation Comments PTT (test code = PTT) 59.6 s 22.9-35.8 [facility] NortheastJojixdqZSRJKSVCYH9877-61-04 07:26:00 Test Item Value Reference Range Interpretation Comments PTT (test code = PTT) 59.6 s 22.9-35.8 [place] [id number] 07:26:00 Test Item Value Reference Range Interpretation Comments PTT (test code = PTT) 59.6 s 22.9-35.8 [facility] NortheastFusjtfwWSJVFSGEDS6528-37-98 07:26:00 Test Item Value Reference Range Interpretation Comments PTT (test code = PTT) 59.6 s 22.9-35.8 [facility] NortheastWbiudwwRGCIXFRPBI2066-25-90 07:26:00 Test Item Value Reference Range Interpretation Comments PTT (test code = PTT) 59.6 s 22.9-35.8 [facility] NortheastTwsggntJRTAYDFXRE3976-57-80 07:26:00 Test Item Value Reference Range Interpretation Comments PTT (test code = PTT) 59.6 s 22.9-35.8 [facility] NortheastNqogksgRQNDMLDMYN7977-10-19 07:26:00 Test Item Value Reference Range Interpretation Comments PTT (test code = PTT) 59.6 s 22.9-35.8 [facility] NortheastJvjldnuRGTJVBQSLE3775-60-15 07:26:00 Test Item Value Reference Range Interpretation Comments PTT (test code = PTT) 59.6 s 22.9-35.8 [facility] NortheastYywsrkjAWLZOGZXPK6600-73-98 07:26:00 Test Item Value Reference Range Interpretation Comments PTT (test code = PTT) 59.6 s 22.9-35.8 [facility] NortheastTwfbaxkHDMSJEAZUZ4902-65-68 07:26:00 Test Item Value Reference Range Interpretation Comments PTT (test code = PTT) 59.6 s 22.9-35.8 [facility] NortheastHsqouxxLFRJUJFDYM5289-47-78 07:26:00 Test Item Value Reference Range Interpretation Comments PTT (test code = PTT) 59.6 s 22.9-35.8 [facility] NortheastPkzmpvhHTEDHJUMDP7739-19-18 07:26:00 Test Item Value Reference Range Interpretation Comments PTT (test code = PTT) 59.6 s 22.9-35.8 [facility] NortheastCuahbhzGCFMPFRVZW7176-85-95 07:26:00 Test Item Value Reference Range Interpretation Comments PTT (test code = PTT) 59.6 s 22.9-35.8 [facility]BACT[facility] - [id number] 04:31:00 Test Item Value Reference Range Interpretation Comments MRSA by PCR (test Positive 2*ABN*(02/20/19 code = MRSA by PCR) 11:31 PM) [facility] [id number] 04:31:00 Test Item Value Reference Range Interpretation Comments BNP (test code = BNP) 632 [facility] [id number] 04:31:00 Test Item Value Reference Range Interpretation Comments MRSA by PCR (test Positive 2*ABN*(02/20/19 code = MRSA by PCR) 11:31 PM) [facility] [id number] 04:31:00 Test Item Value Reference Range Interpretation Comments BNP (test code = BNP) 632 [facility] [id number] 04:31:00 Test Item Value Reference Range Interpretation Comments MRSA by PCR (test Positive 2*ABN*(02/20/19 code = MRSA by PCR) 11:31 PM) [facility] [id number] 04:31:00 Test Item Value Reference Range Interpretation Comments BNP (test code = BNP) 632 [facility] [id number] 04:31:00 Test Item Value Reference Range Interpretation Comments MRSA by PCR (test Positive 2*ABN*(02/20/19 code = MRSA by PCR) 11:31 PM) [facility] [id number] 04:31:00 Test Item Value Reference Range Interpretation Comments BNP (test code = BNP) 632 [facility] [id number] 04:31:00 Test Item Value Reference Range Interpretation Comments MRSA by PCR (test Positive 2*ABN*(02/20/19 code = MRSA by PCR) 11:31 PM) [facility] [id number] 04:31:00 Test Item Value Reference Range Interpretation Comments BNP (test code = BNP) 632 [facility] [id number] 04:31:00 Test Item Value Reference Range Interpretation Comments MRSA by PCR (test Positive 2*ABN*(02/20/19 code = MRSA by PCR) 11:31 PM) [facility] [id number] 04:31:00 Test Item Value Reference Range Interpretation Comments BNP (test code = BNP) 632 [facility] [id number] 04:31:00 Test Item Value Reference Range Interpretation Comments MRSA by PCR (test Positive 2*ABN*(02/20/19 code = MRSA by PCR) 11:31 PM) [facility] [id number] 04:31:00 Test Item Value Reference Range Interpretation Comments BNP (test code = BNP) 632 [facility] [id number] 04:31:00 Test Item Value Reference Range Interpretation Comments MRSA by PCR (test Positive 2*ABN*(02/20/19 code = MRSA by PCR) 11:31 PM) [facility] [id number] 04:31:00 Test Item Value Reference Range Interpretation Comments BNP (test code = BNP) 632 [facility] [id number] 04:31:00 Test Item Value Reference Range Interpretation Comments MRSA by PCR (test Positive 2*ABN*(02/20/19 code = MRSA by PCR) 11:31 PM) [facility] [id number] 04:31:00 Test Item Value Reference Range Interpretation Comments BNP (test code = BNP) 632 [facility] [id number] 04:31:00 Test Item Value Reference Range Interpretation Comments MRSA by PCR (test Positive 2*ABN*(02/20/19 code = MRSA by PCR) 11:31 PM) [facility] [id number] 04:31:00 Test Item Value Reference Range Interpretation Comments BNP (test code = BNP) 632 [facility] [id number] 04:31:00 Test Item Value Reference Range Interpretation Comments MRSA by PCR (test Positive 2*ABN*(02/20/19 code = MRSA by PCR) 11:31 PM) [facility] [id number] 04:31:00 Test Item Value Reference Range Interpretation Comments BNP (test code = BNP) 632 [facility] [id number] 04:31:00 Test Item Value Reference Range Interpretation Comments MRSA by PCR (test Positive 2*ABN*(02/20/19 code = MRSA by PCR) 11:31 PM) [facility] [id number] 04:31:00 Test Item Value Reference Range Interpretation Comments BNP (test code = BNP) 632 [facility] [id number] 04:31:00 Test Item Value Reference Range Interpretation Comments MRSA by PCR (test Positive 2*ABN*(02/20/19 code = MRSA by PCR) 11:31 PM) [facility] [id number] 04:31:00 Test Item Value Reference Range Interpretation Comments BNP (test code = BNP) 632 [facility] [id number] 04:31:00 Test Item Value Reference Range Interpretation Comments MRSA by PCR (test Positive 2*ABN*(02/20/19 code = MRSA by PCR) 11:31 PM) [facility] [id number] 04:31:00 Test Item Value Reference Range Interpretation Comments BNP (test code = BNP) 632 [facility] [id number] 04:31:00 Test Item Value Reference Range Interpretation Comments MRSA by PCR (test Positive 2*ABN*(02/20/19 code = MRSA by PCR) 11:31 PM) [facility] [id number] 04:31:00 Test Item Value Reference Range Interpretation Comments BNP (test code = BNP) 632 [facility] [id number] 04:31:00 Test Item Value Reference Range Interpretation Comments MRSA by PCR (test Positive 2*ABN*(02/20/19 code = MRSA by PCR) 11:31 PM) [facility] [id number] 04:31:00 Test Item Value Reference Range Interpretation Comments BNP (test code = BNP) 632 [facility] [id number] 04:31:00 Test Item Value Reference Range Interpretation Comments MRSA by PCR (test Positive 2*ABN*(02/20/19 code = MRSA by PCR) 11:31 PM) [facility] [id number] 04:31:00 Test Item Value Reference Range Interpretation Comments BNP (test code = BNP) 632 [facility] [id number] 04:31:00 Test Item Value Reference Range Interpretation Comments MRSA by PCR (test Positive 2*ABN*(02/20/19 code = MRSA by PCR) 11:31 PM) [facility] [id number] 04:31:00 Test Item Value Reference Range Interpretation Comments BNP (test code = BNP) 632 [facility] [id number] 04:31:00 Test Item Value Reference Range Interpretation Comments MRSA by PCR (test Positive 2*ABN*(02/20/19 code = MRSA by PCR) 11:31 PM) [facility] [id number] 04:31:00 Test Item Value Reference Range Interpretation Comments BNP (test code = BNP) 632 [facility] [id number] 04:31:00 Test Item Value Reference Range Interpretation Comments MRSA by PCR (test Positive 2*ABN*(02/20/19 code = MRSA by PCR) 11:31 PM) [facility] [id number] 04:31:00 Test Item Value Reference Range Interpretation Comments BNP (test code = BNP) 632 [facility] [id number] 04:31:00 Test Item Value Reference Range Interpretation Comments MRSA by PCR (test Positive 2*ABN*(02/20/19 code = MRSA by PCR) 11:31 PM) [facility] [id number] 04:31:00 Test Item Value Reference Range Interpretation Comments BNP (test code = BNP) 632 [facility] [id number] 04:31:00 Test Item Value Reference Range Interpretation Comments MRSA by PCR (test Positive 2*ABN*(02/20/19 code = MRSA by PCR) 11:31 PM) [facility] [id number] 04:31:00 Test Item Value Reference Range Interpretation Comments BNP (test code = BNP) 632 [facility] [id number] 04:31:00 Test Item Value Reference Range Interpretation Comments MRSA by PCR (test Positive 2*ABN*(02/20/19 code = MRSA by PCR) 11:31 PM) [facility] [id number] 04:31:00 Test Item Value Reference Range Interpretation Comments BNP (test code = BNP) 632 [facility] [id number] 04:31:00 Test Item Value Reference Range Interpretation Comments MRSA by PCR (test Positive 2*ABN*(02/20/19 code = MRSA by PCR) 11:31 PM) [facility] [id number] 04:31:00 Test Item Value Reference Range Interpretation Comments BNP (test code = BNP) 632 [facility] [id number] 04:31:00 Test Item Value Reference Range Interpretation Comments MRSA by PCR (test Positive 2*ABN*(02/20/19 code = MRSA by PCR) 11:31 PM) [facility] [id number] 04:31:00 Test Item Value Reference Range Interpretation Comments BNP (test code = BNP) 632 [facility] [id number] 04:31:00 Test Item Value Reference Range Interpretation Comments MRSA by PCR (test Positive 2*ABN*(02/20/19 code = MRSA by PCR) 11:31 PM) [facility] [id number] 04:31:00 Test Item Value Reference Range Interpretation Comments BNP (test code = BNP) 632 [facility] [id number] 04:31:00 Test Item Value Reference Range Interpretation Comments MRSA by PCR (test Positive 2*ABN*(02/20/19 code = MRSA by PCR) 11:31 PM) [facility] [id number] 04:31:00 Test Item Value Reference Range Interpretation Comments BNP (test code = BNP) 632 [facility] HermannAMIKACIN:SUSC:PT:ISOLATE:ORDQN:[id number] 01:17:00 Test Item Value Reference Range Interpretation Comments Culture: Urine (test 50,000 - 100,000 CFU/mL code = Culture: Escherichia coli , This Urine) Organism Produces An Extended Spectrum Beta Lactamase (ESBL). >100,000 CFU/mL Skin [place] [facility]AM[facility]SUSC:PT:ISOLATE:ORDQN:[id number] 01:17:00 Test Item Value Reference Range Interpretation Comments Escherichia coli (test code Escherichia coli = Escherichia coli) [facility] [id number] 01:17:00 Test Item Value Reference Range Interpretation Comments Strep pneumoniae Ag Negative (02/20/19 8:17 (test code = Strep PM) pneumoniae Ag) [facility] [id number] 01:17:00 Test Item Value Reference Range Interpretation Comments Source Strep (test code Urine (02/20/19 8:17 PM) = Source Strep) [facility] [id number] 01:17:00 Test Item Value Reference Range Interpretation Comments UA Sq Epi (test code = UA Sq Epi) None [facility]en [facility] [id number] 01:17:00 Test Item Value Reference Range Interpretation Comments UA Nitrite (test code Negative (02/20/19 8:17 = UA Nitrite) PM) [facility] [id number] 01:17:00 Test Item Value Reference Range Interpretation Comments UA Leuk Est (test Moderate *ABN*(02/20/19 code = UA Leuk Est) 8:17 PM) [facility] [id number] 01:17:00 Test Item Value Reference Range Interpretation Comments UA WBC (test code = UA WBC) no gt <=5 [facility] [id number] 01:17:00 Test Item Value Reference Range Interpretation Comments UA RBC (test code = UA RBC) 4 <=2 [facility] [id number] 01:17:00 Test Item Value Reference Range Interpretation Comments UA Bacteria (test code = UA Many /HPF Bacteria) [facility] [id number] 01:17:00 Test Item Value Reference Range Interpretation Comments UA Spec Grav (test code = UA Spec 1.014 1 Grav) [facility] [id number] 01:17:00 Test Item Value Reference Range Interpretation Comments UA Turbidity (test code Marked *ABN*(02/20/19 = UA Turbidity) 8:17 PM) [facility] [id number] 01:17:00 Test Item Value Reference Range Interpretation Comments UA Color (test code = Yellow *NA*(02/20/19 8:17 UA Color) PM) [facility] [id number] 01:17:00 Test Item Value Reference Range Interpretation Comments UA Bili (test code = Negative *NA*(02/20/19 UA Bili) 8:17 PM) [facility] [id number] 01:17:00 Test Item Value Reference Range Interpretation Comments UA Protein (test code = UA Protein) 100 mg/dL [facility] AND [id number] 01:17:00 Test Item Value Reference Range Interpretation Comments UA Glucose (test code = UA Negative mg/dL Glucose) [facility] AND [id number] 01:17:00 Test Item Value Reference Range Interpretation Comments UA pH (test code = UA pH) 5.0 1 5.0-8.0 [facility] AND [id number] 01:17:00 Test Item Value Reference Range Interpretation Comments UA Ketones (test code = UA Trace mg/dL Ketones) [facility] AND [id number] 01:17:00 Test Item Value Reference Range Interpretation Comments UA Blood (test code = Small *ABN*(02/20/19 UA Blood) 8:17 PM) [facility] AND [id number] 01:17:00 Test Item Value Reference Range Interpretation Comments UA Urobilinogen (test code = UA 2.0 0.1-1.0 Urobilinogen) [facility]C:PT:ISOLATE:ORDQN:[id number] 01:17:00 Test Item Value Reference Range Interpretation Comments Culture: Urine (test 50,000 - 100,000 CFU/mL code = Culture: Escherichia coli , This Urine) Organism Produces An Extended Spectrum Beta Lactamase (ESBL). >100,000 CFU/mL [facility]:PT:ISOLATE:ORDQN:[id number] 01:17:00 Test Item Value Reference Range Interpretation Comments Escherichia coli (test code Escherichia coli = Escherichia coli) [facility] [id number] 01:17:00 Test Item Value Reference Range Interpretation Comments Strep pneumoniae Ag Negative (02/20/19 8:17 (test code = Strep PM) pneumoniae Ag) [facility] [id number] 01:17:00 Test Item Value Reference Range Interpretation Comments Source Strep (test code Urine (02/20/19 8:17 PM) = Source Strep) [facility] AND [id number] 01:17:00 Test Item Value Reference Range Interpretation Comments UA Sq Epi (test code = UA Sq Epi) None Seen [facility] AND [id number] 01:17:00 Test Item Value Reference Range Interpretation Comments UA Nitrite (test code Negative (02/20/19 8:17 = UA Nitrite) PM) [facility] AND [id number] 01:17:00 Test Item Value Reference Range Interpretation Comments UA Leuk Est (test Moderate *ABN*(02/20/19 code = UA Leuk Est) 8:17 PM) [facility] AND [id number] 01:17:00 Test Item Value Reference Range Interpretation Comments UA WBC (test code = no gt See_Comment [Automa dewayne message] The UA WBC) system which ge nerated this result transmit dewayne reference range : <=5. The reference range was not used to interpr et this result as dallin l/abnormal. [facility] AND [id number] 01:17:00 Test Item Value Reference Range Interpretation Comments UA RBC (test code = 4 See_Comment [Automa dewayne message] The UA RBC) system which ge nerated this result transmit dewayne reference range : <=2. The reference range was not used to interpr et this result as dallin l/abnormal. [facility] AND [id number] 01:17:00 Test Item Value Reference Range Interpretation Comments UA Bacteria (test code = UA Many /HPF Bacteria) [facility] AND [id number] 01:17:00 Test Item Value Reference Range Interpretation Comments UA Spec Grav (test code = UA Spec 1.014 1 Grav) [facility] AND [id number] 01:17:00 Test Item Value Reference Range Interpretation Comments UA Turbidity (test code Marked *ABN*(02/20/19 = UA Turbidity) 8:17 PM) [facility] AND [id number] 01:17:00 Test Item Value Reference Range Interpretation Comments UA Color (test code = Yellow *NA*(02/20/19 8:17 UA Color) PM) [facility] AND [id number] 01:17:00 Test Item Value Reference Range Interpretation Comments UA Bili (test code = Negative *NA*(02/20/19 UA Bili) 8:17 PM) [facility] AND [id number] 01:17:00 Test Item Value Reference Range Interpretation Comments UA Protein (test code = UA Protein) 100 mg/dL [facility] AND [id number] 01:17:00 Test Item Value Reference Range Interpretation Comments UA Glucose (test code = UA Negative mg/dL Glucose) [facility] AND [id number] 01:17:00 Test Item Value Reference Range Interpretation Comments UA pH (test code = UA pH) 5.0 1 5.0-8.0 [facility] AND [id number] 01:17:00 Test Item Value Reference Range Interpretation Comments UA Ketones (test code = UA Trace mg/dL Ketones) [facility] AND [id number] 01:17:00 Test Item Value Reference Range Interpretation Comments UA Blood (test code = Small *ABN*(02/20/19 UA Blood) 8:17 PM) [facility] AND [id number] 01:17:00 Test Item Value Reference Range Interpretation Comments UA Urobilinogen (test code = UA 2.0 0.1-1.0 Urobilinogen) [facility]:PT:ISOLATE:ORDQN:[id number] 01:17:00 Test Item Value Reference Range Interpretation Comments Culture: Urine (test 50,000 - 100,000 CFU/mL code = Culture: Escherichia coli , This Urine) Organism Produces An Extended Spectrum Beta Lactamase (ESBL). >100,000 CFU/mL Skin [facility] CenterMIKACIN:SUSC:PT:ISOLATE:ORDQN:[id number] 01:17:00 Test Item Value Reference Range Interpretation Comments Culture: Urine (test 50,000 - 100,000 CFU/mL code = Culture: Escherichia coli , This Urine) Organism Produces An Extended Spectrum Beta Lactamase (ESBL). >100,000 CFU/mL Skin [facility]AM[facility]:SUSC:PT:ISOLATE:ORDQN:[id number] 01:17:00 Test Item Value Reference Range Interpretation Comments Escherichia coli (test code Escherichia coli = Escherichia coli) [facility] [id number] 01:17:00 Test Item Value Reference Range Interpretation Comments Strep pneumoniae Ag Negative (02/20/19 8:17 (test code = Strep PM) pneumoniae Ag) [facility] [id number] 01:17:00 Test Item Value Reference Range Interpretation Comments Source Strep (test code Urine (02/20/19 8:17 PM) = Source Strep) [facility] MichelleCIN:SUSC:PT:ISOLATE:ORDQN:[id number] 01:17:00 Test Item Value Reference Range Interpretation Comments Escherichia coli (test code Escherichia coli = Escherichia coli) [facility] [id number] 01:17:00 Test Item Value Reference Range Interpretation Comments UA Sq Epi (test code = UA Sq Epi) None Seen [facility] [id number] 01:17:00 Test Item Value Reference Range Interpretation Comments UA Nitrite (test code Negative (02/20/19 8:17 = UA Nitrite) PM) [facility] AND [id number] 01:17:00 Test Item Value Reference Range Interpretation Comments UA Leuk Est (test Moderate *ABN*(02/20/19 code = UA Leuk Est) 8:17 PM) [facility] AND [id number] 01:17:00 Test Item Value Reference Range Interpretation Comments UA WBC (test code = no gt See_Comment [Automa dewayne message] The UA WBC) system which ge nerated this result transmit dewayne reference range : <=5. The reference range was not used to interpr et this result as dallin l/abnormal. [facility] AND [id number] 01:17:00 Test Item Value Reference Range Interpretation Comments UA RBC (test code = 4 See_Comment [Automa dewayne message] The UA RBC) system which ge nerated this result transmit dewayne reference range : <=2. The reference range was not used to interpr et this result as dallin l/abnormal. [facility] AND [id number] 01:17:00 Test Item Value Reference Range Interpretation Comments UA Bacteria (test code = UA Many /HPF Bacteria) [facility] AND [id number] 01:17:00 Test Item Value Reference Range Interpretation Comments UA Spec Grav (test code = UA Spec 1.014 1 Grav) [facility] AND [id number] 01:17:00 Test Item Value Reference Range Interpretation Comments UA Turbidity (test code Marked *ABN*(02/20/19 = UA Turbidity) 8:17 PM) [facility] AND [id number] 01:17:00 Test Item Value Reference Range Interpretation Comments UA Color (test code = Yellow *NA*(02/20/19 8:17 UA Color) PM) [facility] AND [id number] 01:17:00 Test Item Value Reference Range Interpretation Comments UA Bili (test code = Negative *NA*(02/20/19 UA Bili) 8:17 PM) [facility] [id number] 01:17:00 Test Item Value Reference Range Interpretation Comments Strep pneumoniae Ag Negative (02/20/19 8:17 (test code = Strep PM) pneumoniae Ag) [facility] AND [id number] 01:17:00 Test Item Value Reference Range Interpretation Comments UA Protein (test code = UA Protein) 100 mg/dL [facility] AND [id number] 01:17:00 Test Item Value Reference Range Interpretation Comments UA Glucose (test code = UA Negative mg/dL Glucose) [facility] AND [id number] 01:17:00 Test Item Value Reference Range Interpretation Comments UA pH (test code = UA pH) 5.0 1 5.0-8.0 [facility] AND [id number] 01:17:00 Test Item Value Reference Range Interpretation Comments UA Ketones (test code = UA Trace mg/dL Ketones) [facility] AND [id number] 01:17:00 Test Item Value Reference Range Interpretation Comments UA Blood (test code = Small *ABN*(02/20/19 UA Blood) 8:17 PM) [facility] AND [id number] 01:17:00 Test Item Value Reference Range Interpretation Comments UA Urobilinogen (test code = UA 2.0 0.1-1.0 Urobilinogen) [facility] [id number] 01:17:00 Test Item Value Reference Range Interpretation Comments Source Strep (test code Urine (02/20/19 8:17 PM) = Source Strep) [facility] AND [id number] 01:17:00 Test Item Value Reference Range Interpretation Comments UA Sq Epi (test code = UA Sq Epi) None Seen [facility] AND [id number] 01:17:00 Test Item Value Reference Range Interpretation Comments UA Nitrite (test code Negative (02/20/19 8:17 = UA Nitrite) PM) [facility] AND [id number] 01:17:00 Test Item Value Reference Range Interpretation Comments UA Leuk Est (test Moderate *ABN*(02/20/19 code = UA Leuk Est) 8:17 PM) [facility] AND [id number] 01:17:00 Test Item Value Reference Range Interpretation Comments UA WBC (test code = no gt See_Comment [Automa dewayne message] The UA WBC) system which ge nerated this result transmit dewayne reference range : <=5. The reference range was not used to interpr et this result as dallin l/abnormal. [facility] AND [id number] 01:17:00 Test Item Value Reference Range Interpretation Comments UA RBC (test code = 4 See_Comment [Automa dewayne message] The UA RBC) system which ge nerated this result transmit dewayne reference range : <=2. The reference range was not used to interpr et this result as dallin l/abnormal. [facility] AND [id number] 01:17:00 Test Item Value Reference Range Interpretation Comments UA Bacteria (test code = UA Many /HPF Bacteria) [facility] AND [id number] 01:17:00 Test Item Value Reference Range Interpretation Comments UA Spec Grav (test code = UA Spec 1.014 1 Grav) [facility] AND [id number] 01:17:00 Test Item Value Reference Range Interpretation Comments UA Turbidity (test code Marked *ABN*(02/20/19 = UA Turbidity) 8:17 PM) [facility] AND [id number] 01:17:00 Test Item Value Reference Range Interpretation Comments UA Color (test code = Yellow *NA*(02/20/19 8:17 UA Color) PM) [facility] AND [id number] 01:17:00 Test Item Value Reference Range Interpretation Comments UA Bili (test code = Negative *NA*(02/20/19 UA Bili) 8:17 PM) [facility] AND [id number] 01:17:00 Test Item Value Reference Range Interpretation Comments UA Protein (test code = UA Protein) 100 mg/dL [facility] AND [id number] 01:17:00 Test Item Value Reference Range Interpretation Comments UA Glucose (test code = UA Negative mg/dL Glucose) [facility] AND [id number] 01:17:00 Test Item Value Reference Range Interpretation Comments UA pH (test code = UA pH) 5.0 1 5.0-8.0 [facility] AND [id number] 01:17:00 Test Item Value Reference Range Interpretation Comments UA Ketones (test code = UA Trace mg/dL Ketones) [facility] AND [id number] 01:17:00 Test Item Value Reference Range Interpretation Comments UA Blood (test code = Small *ABN*(02/20/19 UA Blood) 8:17 PM) [facility] AND [id number] 01:17:00 Test Item Value Reference Range Interpretation Comments UA Urobilinogen (test code = UA 2.0 0.1-1.0 Urobilinogen) [facility]:PT:ISOLATE:ORDQN:[id number] 01:17:00 Test Item Value Reference Range Interpretation Comments Culture: Urine (test 50,000 - 100,000 CFU/mL code = Culture: Escherichia coli , This Urine) Organism Produces An Extended Spectrum Beta Lactamase (ESBL). >100,000 CFU/mL [facility]C:PT:ISOLATE:ORDQN:[id number] 01:17:00 Test Item Value Reference Range Interpretation Comments Escherichia coli (test code Escherichia coli = Escherichia coli) [facility] [id number] 01:17:00 Test Item Value Reference Range Interpretation Comments Strep pneumoniae Ag Negative (02/20/19 8:17 (test code = Strep PM) pneumoniae Ag) [facility] [id number] 01:17:00 Test Item Value Reference Range Interpretation Comments Source Strep (test code Urine (02/20/19 8:17 PM) = Source Strep) [facility] AND [id number] 01:17:00 Test Item Value Reference Range Interpretation Comments UA Sq Epi (test code = UA Sq Epi) None Seen [facility] AND [id number] 01:17:00 Test Item Value Reference Range Interpretation Comments UA Nitrite (test code Negative (02/20/19 8:17 = UA Nitrite) PM) [facility] AND [id number] 01:17:00 Test Item Value Reference Range Interpretation Comments UA Leuk Est (test Moderate *ABN*(02/20/19 code = UA Leuk Est) 8:17 PM) [facility] AND [id number] 01:17:00 Test Item Value Reference Range Interpretation Comments UA WBC (test code = no gt See_Comment [Automa dewayne message] The UA WBC) system which ge nerated this result transmit dewayne reference range : <=5. The reference range was not used to interpr et this result as dallin l/abnormal. [facility] AND [id number] 01:17:00 Test Item Value Reference Range Interpretation Comments UA RBC (test code = 4 See_Comment [Automa dewayne message] The UA RBC) system which ge nerated this result transmit dewayne reference range : <=2. The reference range was not used to interpr et this result as dallin l/abnormal. [facility] AND [id number] 01:17:00 Test Item Value Reference Range Interpretation Comments UA Bacteria (test code = UA Many /HPF Bacteria) [facility] AND [id number] 01:17:00 Test Item Value Reference Range Interpretation Comments UA Spec Grav (test code = UA Spec 1.014 1 Grav) [facility] AND [id number] 01:17:00 Test Item Value Reference Range Interpretation Comments UA Turbidity (test code Marked *ABN*(02/20/19 = UA Turbidity) 8:17 PM) [facility] AND [id number] 01:17:00 Test Item Value Reference Range Interpretation Comments UA Color (test code = Yellow *NA*(02/20/19 8:17 UA Color) PM) [facility] AND [id number] 01:17:00 Test Item Value Reference Range Interpretation Comments UA Bili (test code = Negative *NA*(02/20/19 UA Bili) 8:17 PM) [facility] AND [id number] 01:17:00 Test Item Value Reference Range Interpretation Comments UA Protein (test code = UA Protein) 100 mg/dL [facility] AND [id number] 01:17:00 Test Item Value Reference Range Interpretation Comments UA Glucose (test code = UA Negative mg/dL Glucose) [facility] AND [id number] 01:17:00 Test Item Value Reference Range Interpretation Comments UA pH (test code = UA pH) 5.0 1 5.0-8.0 [facility] AND [id number] 01:17:00 Test Item Value Reference Range Interpretation Comments UA Ketones (test code = UA Trace mg/dL Ketones) [facility] AND [id number] 01:17:00 Test Item Value Reference Range Interpretation Comments UA Blood (test code = Small *ABN*(02/20/19 UA Blood) 8:17 PM) [facility] AND [id number] 01:17:00 Test Item Value Reference Range Interpretation Comments UA Urobilinogen (test code = UA 2.0 0.1-1.0 Urobilinogen) [facility]annAM[facility]SUSC:PT:ISOLATE:ORDQN:[id number] 01:17:00 Test Item Value Reference Range Interpretation Comments Culture: Urine (test 50,000 - 100,000 CFU/mL code = Culture: Escherichia coli , This Urine) Organism Produces An Extended Spectrum Beta Lactamase (ESBL). >100,000 CFU/mL Skin [facility]LeslieMIKACIN:SUSC:PT:ISOLATE:ORDQN:[id number] 01:17:00 Test Item Value Reference Range Interpretation Comments Escherichia coli (test code Escherichia coli = Escherichia coli) [facility] [id number] 01:17:00 Test Item Value Reference Range Interpretation Comments Strep pneumoniae Ag Negative (02/20/19 8:17 (test code = Strep PM) pneumoniae Ag) [facility] [id number] 01:17:00 Test Item Value Reference Range Interpretation Comments Source Strep (test code Urine (02/20/19 8:17 PM) = Source Strep) [facility] AND [id number] 01:17:00 Test Item Value Reference Range Interpretation Comments UA Sq Epi (test code = UA Sq Epi) None Seen [facility] AND [id number] 01:17:00 Test Item Value Reference Range Interpretation Comments UA Nitrite (test code Negative (02/20/19 8:17 = UA Nitrite) PM) [facility] AND [id number] 01:17:00 Test Item Value Reference Range Interpretation Comments UA Leuk Est (test Moderate *ABN*(02/20/19 code = UA Leuk Est) 8:17 PM) [facility] AND [id number] 01:17:00 Test Item Value Reference Range Interpretation Comments UA WBC (test code = no gt See_Comment [Automa dewayne message] The UA WBC) system which ge nerated this result transmit dewayne reference range : <=5. The reference range was not used to interpr et this result as dallin l/abnormal. [facility] AND [id number] 01:17:00 Test Item Value Reference Range Interpretation Comments UA RBC (test code = 4 See_Comment [Automa dewayne message] The UA RBC) system which ge nerated this result transmit dewayne reference range : <=2. The reference range was not used to interpr et this result as dallin l/abnormal. [facility] AND [id number] 01:17:00 Test Item Value Reference Range Interpretation Comments UA Bacteria (test code = UA Many /HPF Bacteria) [facility] AND [id number] 01:17:00 Test Item Value Reference Range Interpretation Comments UA Spec Grav (test code = UA Spec 1.014 1 Grav) [facility] AND [id number] 01:17:00 Test Item Value Reference Range Interpretation Comments UA Turbidity (test code Marked *ABN*(02/20/19 = UA Turbidity) 8:17 PM) [facility] AND [id number] 01:17:00 Test Item Value Reference Range Interpretation Comments UA Color (test code = Yellow *NA*(02/20/19 8:17 UA Color) PM) [facility] AND [id number] 01:17:00 Test Item Value Reference Range Interpretation Comments UA Bili (test code = Negative *NA*(02/20/19 UA Bili) 8:17 PM) [facility] AND [id number] 01:17:00 Test Item Value Reference Range Interpretation Comments UA Protein (test code = UA Protein) 100 mg/dL [facility] AND [id number] 01:17:00 Test Item Value Reference Range Interpretation Comments UA Glucose (test code = UA Negative mg/dL Glucose) [facility] AND [id number] 01:17:00 Test Item Value Reference Range Interpretation Comments UA pH (test code = UA pH) 5.0 1 5.0-8.0 [facility] AND [id number] 01:17:00 Test Item Value Reference Range Interpretation Comments UA Ketones (test code = UA Trace mg/dL Ketones) [facility] AND [id number] 01:17:00 Test Item Value Reference Range Interpretation Comments UA Blood (test code = Small *ABN*(02/20/19 UA Blood) 8:17 PM) [facility] AND [id number] 01:17:00 Test Item Value Reference Range Interpretation Comments UA Urobilinogen (test code = UA 2.0 0.1-1.0 Urobilinogen) [facility]USC:PT:ISOLATE:ORDQN:[id number] 01:17:00 Test Item Value Reference Range Interpretation Comments Culture: Urine (test 50,000 - 100,000 CFU/mL code = Culture: Escherichia coli , This Urine) Organism Produces An Extended Spectrum Beta Lactamase (ESBL). >100,000 CFU/mL Skin [facility]LeslieMIKACIN:SUSC:PT:ISOLATE:ORDQN:[id number] 01:17:00 Test Item Value Reference Range Interpretation Comments Escherichia coli (test code Escherichia coli = Escherichia coli) [facility] [id number] 01:17:00 Test Item Value Reference Range Interpretation Comments Strep pneumoniae Ag Negative (02/20/19 8:17 (test code = Strep PM) pneumoniae Ag) [facility] [id number] 01:17:00 Test Item Value Reference Range Interpretation Comments Source Strep (test code Urine (02/20/19 8:17 PM) = Source Strep) [facility] AND [id number] 01:17:00 Test Item Value Reference Range Interpretation Comments UA Sq Epi (test code = UA Sq Epi) None Seen [facility] AND [id number] 01:17:00 Test Item Value Reference Range Interpretation Comments UA Nitrite (test code Negative (02/20/19 8:17 = UA Nitrite) PM) [facility] AND [id number] 01:17:00 Test Item Value Reference Range Interpretation Comments UA Leuk Est (test Moderate *ABN*(02/20/19 code = UA Leuk Est) 8:17 PM) [facility] AND [id number] 01:17:00 Test Item Value Reference Range Interpretation Comments UA WBC (test code = no gt See_Comment [Automa dewayne message] The UA WBC) system which ge nerated this result transmit dewayne reference range : <=5. The reference range was not used to interpr et this result as dallin l/abnormal. [facility] AND [id number] 01:17:00 Test Item Value Reference Range Interpretation Comments UA RBC (test code = 4 See_Comment [Automa dewayne message] The UA RBC) system which ge nerated this result transmit dewayne reference range : <=2. The reference range was not used to interpr et this result as dallin l/abnormal. [facility] AND [id number] 01:17:00 Test Item Value Reference Range Interpretation Comments UA Bacteria (test code = UA Many /HPF Bacteria) [facility] AND [id number] 01:17:00 Test Item Value Reference Range Interpretation Comments UA Spec Grav (test code = UA Spec 1.014 1 Grav) [facility] AND [id number] 01:17:00 Test Item Value Reference Range Interpretation Comments UA Turbidity (test code Marked *ABN*(02/20/19 = UA Turbidity) 8:17 PM) [facility] AND [id number] 01:17:00 Test Item Value Reference Range Interpretation Comments UA Color (test code = Yellow *NA*(02/20/19 8:17 UA Color) PM) [facility] AND [id number] 01:17:00 Test Item Value Reference Range Interpretation Comments UA Bili (test code = Negative *NA*(02/20/19 UA Bili) 8:17 PM) [facility] AND [id number] 01:17:00 Test Item Value Reference Range Interpretation Comments UA Protein (test code = UA Protein) 100 mg/dL [facility] AND [id number] 01:17:00 Test Item Value Reference Range Interpretation Comments UA Glucose (test code = UA Negative mg/dL Glucose) [facility] AND [id number] 01:17:00 Test Item Value Reference Range Interpretation Comments UA pH (test code = UA pH) 5.0 1 5.0-8.0 [facility] AND [id number] 01:17:00 Test Item Value Reference Range Interpretation Comments UA Ketones (test code = UA Trace mg/dL Ketones) [facility] AND [id number] 01:17:00 Test Item Value Reference Range Interpretation Comments UA Blood (test code = Small *ABN*(02/20/19 UA Blood) 8:17 PM) [facility] AND [id number] 01:17:00 Test Item Value Reference Range Interpretation Comments UA Urobilinogen (test code = UA 2.0 0.1-1.0 Urobilinogen) [facility]SUSC:PT:ISOLATE:ORDQN:[id number] 01:17:00 Test Item Value Reference Range Interpretation Comments Culture: Urine (test 50,000 - 100,000 CFU/mL code = Culture: Escherichia coli , This Urine) Organism Produces An Extended Spectrum Beta Lactamase (ESBL). >100,000 CFU/mL Skin [facility]LeslieMIKACIN:SUSC:PT:ISOLATE:ORDQN:[id number] 01:17:00 Test Item Value Reference Range Interpretation Comments Escherichia coli (test code Escherichia coli = Escherichia coli) [facility] [id number] 01:17:00 Test Item Value Reference Range Interpretation Comments Strep pneumoniae Ag Negative (02/20/19 8:17 (test code = Strep PM) pneumoniae Ag) [facility] [id number] 01:17:00 Test Item Value Reference Range Interpretation Comments Source Strep (test code Urine (02/20/19 8:17 PM) = Source Strep) [facility] AND [id number] 01:17:00 Test Item Value Reference Range Interpretation Comments UA Sq Epi (test code = UA Sq Epi) None Seen [facility] AND [id number] 01:17:00 Test Item Value Reference Range Interpretation Comments UA Nitrite (test code Negative (02/20/19 8:17 = UA Nitrite) PM) [facility] AND [id number] 01:17:00 Test Item Value Reference Range Interpretation Comments UA Leuk Est (test Moderate *ABN*(02/20/19 code = UA Leuk Est) 8:17 PM) [facility] AND [id number] 01:17:00 Test Item Value Reference Range Interpretation Comments UA WBC (test code = no gt See_Comment [Automa dewayne message] The UA WBC) system which ge nerated this result transmit dewayne reference range : <=5. The reference range was not used to interpr et this result as dallin l/abnormal. [facility] AND [id number] 01:17:00 Test Item Value Reference Range Interpretation Comments UA RBC (test code = 4 See_Comment [Automa dewayne message] The UA RBC) system which ge nerated this result transmit dewayne reference range : <=2. The reference range was not used to interpr et this result as dallin l/abnormal. [facility] AND [id number] 01:17:00 Test Item Value Reference Range Interpretation Comments UA Bacteria (test code = UA Many /HPF Bacteria) [facility] AND [id number] 01:17:00 Test Item Value Reference Range Interpretation Comments UA Spec Grav (test code = UA Spec 1.014 1 Grav) [facility] AND [id number] 01:17:00 Test Item Value Reference Range Interpretation Comments UA Turbidity (test code Marked *ABN*(02/20/19 = UA Turbidity) 8:17 PM) [facility] AND [id number] 01:17:00 Test Item Value Reference Range Interpretation Comments UA Color (test code = Yellow *NA*(02/20/19 8:17 UA Color) PM) [facility] AND [id number] 01:17:00 Test Item Value Reference Range Interpretation Comments UA Bili (test code = Negative *NA*(02/20/19 UA Bili) 8:17 PM) [facility] AND [id number] 01:17:00 Test Item Value Reference Range Interpretation Comments UA Protein (test code = UA Protein) 100 mg/dL [facility] AND [id number] 01:17:00 Test Item Value Reference Range Interpretation Comments UA Glucose (test code = UA Negative mg/dL Glucose) [facility] AND [id number] 01:17:00 Test Item Value Reference Range Interpretation Comments UA pH (test code = UA pH) 5.0 1 5.0-8.0 [facility] AND [id number] 01:17:00 Test Item Value Reference Range Interpretation Comments UA Ketones (test code = UA Trace mg/dL Ketones) [facility] AND [id number] 01:17:00 Test Item Value Reference Range Interpretation Comments UA Blood (test code = Small *ABN*(02/20/19 UA Blood) 8:17 PM) [facility] AND [id number] 01:17:00 Test Item Value Reference Range Interpretation Comments UA Urobilinogen (test code = UA 2.0 0.1-1.0 Urobilinogen) [facility]SUSC:PT:ISOLATE:ORDQN:[id number] 01:17:00 Test Item Value Reference Range Interpretation Comments Culture: Urine (test 50,000 - 100,000 CFU/mL code = Culture: Escherichia coli , This Urine) Organism Produces An Extended Spectrum Beta Lactamase (ESBL). >100,000 CFU/mL Skin [facility]annAM[facility]IN:SUSC:PT:ISOLATE:ORDQN:[id number] 01:17:00 Test Item Value Reference Range Interpretation Comments Escherichia coli (test code Escherichia coli = Escherichia coli) [facility] [id number] 01:17:00 Test Item Value Reference Range Interpretation Comments Strep pneumoniae Ag Negative (02/20/19 8:17 (test code = Strep PM) pneumoniae Ag) [facility] [id number] 01:17:00 Test Item Value Reference Range Interpretation Comments Source Strep (test code Urine (02/20/19 8:17 PM) = Source Strep) [facility] AND [id number] 01:17:00 Test Item Value Reference Range Interpretation Comments UA Sq Epi (test code = UA Sq Epi) None Seen [facility] AND [id number] 01:17:00 Test Item Value Reference Range Interpretation Comments UA Nitrite (test code Negative (02/20/19 8:17 = UA Nitrite) PM) [facility] AND [id number] 01:17:00 Test Item Value Reference Range Interpretation Comments UA Leuk Est (test Moderate *ABN*(02/20/19 code = UA Leuk Est) 8:17 PM) [facility] AND [id number] 01:17:00 Test Item Value Reference Range Interpretation Comments UA WBC (test code = no gt See_Comment [Automa dewayne message] The UA WBC) system which ge nerated this result transmit dewayne reference range : <=5. The reference range was not used to interpr et this result as dallin l/abnormal. [facility] AND [id number] 01:17:00 Test Item Value Reference Range Interpretation Comments UA RBC (test code = 4 See_Comment [Automa dewayne message] The UA RBC) system which ge nerated this result transmit dewayne reference range : <=2. The reference range was not used to interpr et this result as dallin l/abnormal. [facility] AND [id number] 01:17:00 Test Item Value Reference Range Interpretation Comments UA Bacteria (test code = UA Many /HPF Bacteria) [facility] AND [id number] 01:17:00 Test Item Value Reference Range Interpretation Comments UA Spec Grav (test code = UA Spec 1.014 1 Grav) [facility] AND [id number] 01:17:00 Test Item Value Reference Range Interpretation Comments UA Turbidity (test code Marked *ABN*(02/20/19 = UA Turbidity) 8:17 PM) [facility] AND [id number] 01:17:00 Test Item Value Reference Range Interpretation Comments UA Color (test code = Yellow *NA*(02/20/19 8:17 UA Color) PM) [facility] AND [id number] 01:17:00 Test Item Value Reference Range Interpretation Comments UA Bili (test code = Negative *NA*(02/20/19 UA Bili) 8:17 PM) [facility] AND [id number] 01:17:00 Test Item Value Reference Range Interpretation Comments UA Protein (test code = UA Protein) 100 mg/dL [facility] AND [id number] 01:17:00 Test Item Value Reference Range Interpretation Comments UA Glucose (test code = UA Negative mg/dL Glucose) [facility] AND [id number] 01:17:00 Test Item Value Reference Range Interpretation Comments UA pH (test code = UA pH) 5.0 1 5.0-8.0 [facility] AND [id number] 01:17:00 Test Item Value Reference Range Interpretation Comments UA Ketones (test code = UA Trace mg/dL Ketones) [facility] AND [id number] 01:17:00 Test Item Value Reference Range Interpretation Comments UA Blood (test code = Small *ABN*(02/20/19 UA Blood) 8:17 PM) [facility] AND [id number] 01:17:00 Test Item Value Reference Range Interpretation Comments UA Urobilinogen (test code = UA 2.0 0.1-1.0 Urobilinogen) [facility]PT:ISOLATE:ORDQN:[id number] 01:17:00 Test Item Value Reference Range Interpretation Comments Culture: Urine (test 50,000 - 100,000 CFU/mL code = Culture: Escherichia coli , This Urine) Organism Produces An Extended Spectrum Beta Lactamase (ESBL). >100,000 CFU/mL [facility]SUSC:PT:ISOLATE:ORDQN:[id number] 01:17:00 Test Item Value Reference Range Interpretation Comments Escherichia coli (test code Escherichia coli = Escherichia coli) [facility] [id number] 01:17:00 Test Item Value Reference Range Interpretation Comments Strep pneumoniae Ag Negative (02/20/19 8:17 (test code = Strep PM) pneumoniae Ag) [facility] [id number] 01:17:00 Test Item Value Reference Range Interpretation Comments Source Strep (test code Urine (02/20/19 8:17 PM) = Source Strep) [facility] AND [id number] 01:17:00 Test Item Value Reference Range Interpretation Comments UA Sq Epi (test code = UA Sq Epi) None Seen [facility] AND [id number] 01:17:00 Test Item Value Reference Range Interpretation Comments UA Nitrite (test code Negative (02/20/19 8:17 = UA Nitrite) PM) [facility] AND [id number] 01:17:00 Test Item Value Reference Range Interpretation Comments UA Leuk Est (test Moderate *ABN*(02/20/19 code = UA Leuk Est) 8:17 PM) [facility] AND [id number] 01:17:00 Test Item Value Reference Range Interpretation Comments UA WBC (test code = no gt See_Comment [Automa dewayne message] The UA WBC) system which ge nerated this result transmit dewayne reference range : <=5. The reference range was not used to interpr et this result as dallin l/abnormal. [facility] AND [id number] 01:17:00 Test Item Value Reference Range Interpretation Comments UA RBC (test code = 4 See_Comment [Automa dewayne message] The UA RBC) system which ge nerated this result transmit dewayne reference range : <=2. The reference range was not used to interpr et this result as dallin l/abnormal. [facility] AND [id number] 01:17:00 Test Item Value Reference Range Interpretation Comments UA Bacteria (test code = UA Many /HPF Bacteria) [facility] AND [id number] 01:17:00 Test Item Value Reference Range Interpretation Comments UA Spec Grav (test code = UA Spec 1.014 1 Grav) [facility] AND [id number] 01:17:00 Test Item Value Reference Range Interpretation Comments UA Turbidity (test code Marked *ABN*(02/20/19 = UA Turbidity) 8:17 PM) [facility] AND [id number] 01:17:00 Test Item Value Reference Range Interpretation Comments UA Color (test code = Yellow *NA*(02/20/19 8:17 UA Color) PM) [facility] AND [id number] 01:17:00 Test Item Value Reference Range Interpretation Comments UA Bili (test code = Negative *NA*(02/20/19 UA Bili) 8:17 PM) [facility] AND [id number] 01:17:00 Test Item Value Reference Range Interpretation Comments UA Protein (test code = UA Protein) 100 mg/dL [facility] AND [id number] 01:17:00 Test Item Value Reference Range Interpretation Comments UA Glucose (test code = UA Negative mg/dL Glucose) [facility] AND [id number] 01:17:00 Test Item Value Reference Range Interpretation Comments UA pH (test code = UA pH) 5.0 1 5.0-8.0 [facility] AND [id number] 01:17:00 Test Item Value Reference Range Interpretation Comments UA Ketones (test code = UA Trace mg/dL Ketones) [facility] AND [id number] 01:17:00 Test Item Value Reference Range Interpretation Comments UA Blood (test code = Small *ABN*(02/20/19 UA Blood) 8:17 PM) [facility] AND [id number] 01:17:00 Test Item Value Reference Range Interpretation Comments UA Urobilinogen (test code = UA 2.0 0.1-1.0 Urobilinogen) [facility]:PT:ISOLATE:ORDQN:[id number] 01:17:00 Test Item Value Reference Range Interpretation Comments Culture: Urine (test 50,000 - 100,000 CFU/mL code = Culture: Escherichia coli , This Urine) Organism Produces An Extended Spectrum Beta Lactamase (ESBL). >100,000 CFU/mL Skin [facility]SUSC:PT:ISOLATE:ORDQN:[id number] 01:17:00 Test Item Value Reference Range Interpretation Comments Escherichia coli (test code Escherichia coli = Escherichia coli) [facility] [id number] 01:17:00 Test Item Value Reference Range Interpretation Comments Strep pneumoniae Ag Negative (02/20/19 8:17 (test code = Strep PM) pneumoniae Ag) [facility] [id number] 01:17:00 Test Item Value Reference Range Interpretation Comments Source Strep (test code Urine (02/20/19 8:17 PM) = Source Strep) [facility] AND [id number] 01:17:00 Test Item Value Reference Range Interpretation Comments UA Sq Epi (test code = UA Sq Epi) None Seen [facility] AND [id number] 01:17:00 Test Item Value Reference Range Interpretation Comments UA Nitrite (test code Negative (02/20/19 8:17 = UA Nitrite) PM) [facility] AND [id number] 01:17:00 Test Item Value Reference Range Interpretation Comments UA Leuk Est (test Moderate *ABN*(02/20/19 code = UA Leuk Est) 8:17 PM) [facility] AND [id number] 01:17:00 Test Item Value Reference Range Interpretation Comments UA WBC (test code = no gt See_Comment [Automa dewayne message] The UA WBC) system which ge nerated this result transmit dewayne reference range : <=5. The reference range was not used to interpr et this result as dallin l/abnormal. [facility] AND [id number] 01:17:00 Test Item Value Reference Range Interpretation Comments UA RBC (test code = 4 See_Comment [Automa dewayne message] The UA RBC) system which ge nerated this result transmit dewayne reference range : <=2. The reference range was not used to interpr et this result as dallin l/abnormal. [facility] AND [id number] 01:17:00 Test Item Value Reference Range Interpretation Comments UA Bacteria (test code = UA Many /HPF Bacteria) [facility] AND [id number] 01:17:00 Test Item Value Reference Range Interpretation Comments UA Spec Grav (test code = UA Spec 1.014 1 Grav) [facility] AND [id number] 01:17:00 Test Item Value Reference Range Interpretation Comments UA Turbidity (test code Marked *ABN*(02/20/19 = UA Turbidity) 8:17 PM) [facility] AND [id number] 01:17:00 Test Item Value Reference Range Interpretation Comments UA Color (test code = Yellow *NA*(02/20/19 8:17 UA Color) PM) [facility] AND [id number] 01:17:00 Test Item Value Reference Range Interpretation Comments UA Bili (test code = Negative *NA*(02/20/19 UA Bili) 8:17 PM) [facility] AND [id number] 01:17:00 Test Item Value Reference Range Interpretation Comments UA Protein (test code = UA Protein) 100 mg/dL [facility] AND [id number] 01:17:00 Test Item Value Reference Range Interpretation Comments UA Glucose (test code = UA Negative mg/dL Glucose) [facility] AND [id number] 01:17:00 Test Item Value Reference Range Interpretation Comments UA pH (test code = UA pH) 5.0 1 5.0-8.0 [facility] [id number] 01:17:00 Test Item Value Reference Range Interpretation Comments UA Ketones (test code = UA Trace mg/dL Ketones) [facility] [id number] 01:17:00 Test Item Value Reference Range Interpretation Comments UA Blood (test code = Small *ABN*(02/20/19 UA Blood) 8:17 PM) [facility] [id number] 01:17:00 Test Item Value Reference Range Interpretation Comments UA Urobilinogen (test code = UA 2.0 0.1-1.0 Urobilinogen) [facility]:SUSC:PT:ISOLATE:ORDQN:[id number] 01:17:00 Test Item Value Reference Range Interpretation Comments Culture: Urine (test 50,000 - 100,000 CFU/mL code = Culture: Escherichia coli , This Urine) Organism Produces An Extended Spectrum Beta Lactamase (ESBL). >100,000 CFU/mL Skin [facility] HospitalLeslieMIKACIN:SUSC:PT:ISOLATE:ORDQN:[id number] 01:17:00 Test Item Value Reference Range Interpretation Comments Escherichia coli (test code Escherichia coli = Escherichia coli) [facility] [id number] 01:17:00 Test Item Value Reference Range Interpretation Comments Strep pneumoniae Ag Negative (02/20/19 8:17 (test code = Strep PM) pneumoniae Ag) [facility] [id number] 01:17:00 Test Item Value Reference Range Interpretation Comments Source Strep (test code Urine (02/20/19 8:17 PM) = Source Strep) [facility] [id number] 01:17:00 Test Item Value Reference Range Interpretation Comments UA Sq Epi (test code = UA Sq Epi) None Seen [facility] AND [id number] 01:17:00 Test Item Value Reference Range Interpretation Comments UA Nitrite (test code Negative (02/20/19 8:17 = UA Nitrite) PM) [facility] [id number] 01:17:00 Test Item Value Reference Range Interpretation Comments UA Leuk Est (test Moderate *ABN*(02/20/19 code = UA Leuk Est) 8:17 PM) [facility] AND [id number] 01:17:00 Test Item Value Reference Range Interpretation Comments UA WBC (test code = UA WBC) no gt <=5 [facility] AND [id number] 01:17:00 Test Item Value Reference Range Interpretation Comments UA RBC (test code = UA RBC) 4 <=2 [facility] AND [id number] 01:17:00 Test Item Value Reference Range Interpretation Comments UA Bacteria (test code = UA Many /HPF Bacteria) [facility] AND [id number] 01:17:00 Test Item Value Reference Range Interpretation Comments UA Spec Grav (test code = UA Spec 1.014 1 Grav) [facility] AND [id number] 01:17:00 Test Item Value Reference Range Interpretation Comments UA Turbidity (test code Marked *ABN*(02/20/19 = UA Turbidity) 8:17 PM) [facility] AND [id number] 01:17:00 Test Item Value Reference Range Interpretation Comments UA Color (test code = Yellow *NA*(02/20/19 8:17 UA Color) PM) [facility] AND [id number] 01:17:00 Test Item Value Reference Range Interpretation Comments UA Bili (test code = Negative *NA*(02/20/19 UA Bili) 8:17 PM) [facility] AND [id number] 01:17:00 Test Item Value Reference Range Interpretation Comments UA Protein (test code = UA Protein) 100 mg/dL [facility] AND [id number] 01:17:00 Test Item Value Reference Range Interpretation Comments UA Glucose (test code = UA Negative mg/dL Glucose) [facility] AND [id number] 01:17:00 Test Item Value Reference Range Interpretation Comments UA pH (test code = UA pH) 5.0 1 5.0-8.0 [facility] AND [id number] 01:17:00 Test Item Value Reference Range Interpretation Comments UA Ketones (test code = UA Trace mg/dL Ketones) [facility] AND [id number] 01:17:00 Test Item Value Reference Range Interpretation Comments UA Blood (test code = Small *ABN*(02/20/19 UA Blood) 8:17 PM) [facility] AND [id number] 01:17:00 Test Item Value Reference Range Interpretation Comments UA Urobilinogen (test code = UA 2.0 0.1-1.0 Urobilinogen) [facility]SUSC:PT:ISOLATE:ORDQN:[id number] 01:17:00 Test Item Value Reference Range Interpretation Comments Culture: Urine (test 50,000 - 100,000 CFU/mL code = Culture: Escherichia coli , This Urine) Organism Produces An Extended Spectrum Beta Lactamase (ESBL). >100,000 CFU/mL Skin [facility]:SUSC:PT:ISOLATE:ORDQN:[id number] 01:17:00 Test Item Value Reference Range Interpretation Comments Escherichia coli (test code Escherichia coli = Escherichia coli) [facility] [id number] 01:17:00 Test Item Value Reference Range Interpretation Comments Strep pneumoniae Ag Negative (02/20/19 8:17 (test code = Strep PM) pneumoniae Ag) [facility] [id number] 01:17:00 Test Item Value Reference Range Interpretation Comments Source Strep (test code Urine (02/20/19 8:17 PM) = Source Strep) [facility] AND [id number] 01:17:00 Test Item Value Reference Range Interpretation Comments UA Sq Epi (test code = UA Sq Epi) None Seen [facility] AND [id number] 01:17:00 Test Item Value Reference Range Interpretation Comments UA Nitrite (test code Negative (02/20/19 8:17 = UA Nitrite) PM) [facility] AND [id number] 01:17:00 Test Item Value Reference Range Interpretation Comments UA Leuk Est (test Moderate *ABN*(02/20/19 code = UA Leuk Est) 8:17 PM) [facility] AND [id number] 01:17:00 Test Item Value Reference Range Interpretation Comments UA WBC (test code = no gt See_Comment [Automa dewayne message] The UA WBC) system which ge nerated this result transmit dewayne reference range : <=5. The reference range was not used to interpr et this result as dallin l/abnormal. [facility] AND [id number] 01:17:00 Test Item Value Reference Range Interpretation Comments UA RBC (test code = 4 See_Comment [Automa dewayne message] The UA RBC) system which ge nerated this result transmit dewayne reference range : <=2. The reference range was not used to interpr et this result as dallin l/abnormal. [facility] AND [id number] 01:17:00 Test Item Value Reference Range Interpretation Comments UA Bacteria (test code = UA Many /HPF Bacteria) [facility] AND [id number] 01:17:00 Test Item Value Reference Range Interpretation Comments UA Spec Grav (test code = UA Spec 1.014 1 Grav) [facility] AND [id number] 01:17:00 Test Item Value Reference Range Interpretation Comments UA Turbidity (test code Marked *ABN*(02/20/19 = UA Turbidity) 8:17 PM) [facility] AND [id number] 01:17:00 Test Item Value Reference Range Interpretation Comments UA Color (test code = Yellow *NA*(02/20/19 8:17 UA Color) PM) [facility] AND [id number] 01:17:00 Test Item Value Reference Range Interpretation Comments UA Bili (test code = Negative *NA*(02/20/19 UA Bili) 8:17 PM) [facility] AND [id number] 01:17:00 Test Item Value Reference Range Interpretation Comments UA Protein (test code = UA Protein) 100 mg/dL [facility] AND [id number] 01:17:00 Test Item Value Reference Range Interpretation Comments UA Glucose (test code = UA Negative mg/dL Glucose) [facility] AND [id number] 01:17:00 Test Item Value Reference Range Interpretation Comments UA pH (test code = UA pH) 5.0 1 5.0-8.0 [facility] AND [id number] 01:17:00 Test Item Value Reference Range Interpretation Comments UA Ketones (test code = UA Trace mg/dL Ketones) [facility] AND [id number] 01:17:00 Test Item Value Reference Range Interpretation Comments UA Blood (test code = Small *ABN*(02/20/19 UA Blood) 8:17 PM) [facility] AND [id number] 01:17:00 Test Item Value Reference Range Interpretation Comments UA Urobilinogen (test code = UA 2.0 0.1-1.0 Urobilinogen) [facility]LeslieMIKACIN:SUSC:PT:ISOLATE:ORDQN:[id number] 01:17:00 Test Item Value Reference Range Interpretation Comments Culture: Urine (test 50,000 - 100,000 CFU/mL code = Culture: Escherichia coli , This Urine) Organism Produces An Extended Spectrum Beta Lactamase (ESBL). >100,000 CFU/mL Skin [facility] ÓscarMIKACIN:SUSC:PT:ISOLATE:ORDQN:[id number] 01:17:00 Test Item Value Reference Range Interpretation Comments Escherichia coli (test code Escherichia coli = Escherichia coli) [facility] [id number] 01:17:00 Test Item Value Reference Range Interpretation Comments Strep pneumoniae Ag Negative (02/20/19 8:17 (test code = Strep PM) pneumoniae Ag) [facility] [id number] 01:17:00 Test Item Value Reference Range Interpretation Comments Source Strep (test code Urine (02/20/19 8:17 PM) = Source Strep) [facility] AND [id number] 01:17:00 Test Item Value Reference Range Interpretation Comments UA Sq Epi (test code = UA Sq Epi) None Seen [facility] AND [id number] 01:17:00 Test Item Value Reference Range Interpretation Comments UA Nitrite (test code Negative (02/20/19 8:17 = UA Nitrite) PM) [facility] AND [id number] 01:17:00 Test Item Value Reference Range Interpretation Comments UA Leuk Est (test Moderate *ABN*(02/20/19 code = UA Leuk Est) 8:17 PM) [facility] AND [id number] 01:17:00 Test Item Value Reference Range Interpretation Comments UA WBC (test code = no gt See_Comment [Automa dewayne message] The UA WBC) system which ge nerated this result transmit dewayne reference range : <=5. The reference range was not used to interpr et this result as dallin l/abnormal. [facility] AND [id number] 01:17:00 Test Item Value Reference Range Interpretation Comments UA RBC (test code = 4 See_Comment [Automa dewayne message] The UA RBC) system which ge nerated this result transmit dewayne reference range : <=2. The reference range was not used to interpr et this result as dallin l/abnormal. [facility] AND [id number] 01:17:00 Test Item Value Reference Range Interpretation Comments UA Bacteria (test code = UA Many /HPF Bacteria) [facility] AND [id number] 01:17:00 Test Item Value Reference Range Interpretation Comments UA Spec Grav (test code = UA Spec 1.014 1 Grav) [facility] AND [id number] 01:17:00 Test Item Value Reference Range Interpretation Comments UA Turbidity (test code Marked *ABN*(02/20/19 = UA Turbidity) 8:17 PM) [facility] AND [id number] 01:17:00 Test Item Value Reference Range Interpretation Comments UA Color (test code = Yellow *NA*(02/20/19 8:17 UA Color) PM) [facility] AND [id number] 01:17:00 Test Item Value Reference Range Interpretation Comments UA Bili (test code = Negative *NA*(02/20/19 UA Bili) 8:17 PM) [facility] AND [id number] 01:17:00 Test Item Value Reference Range Interpretation Comments UA Protein (test code = UA Protein) 100 mg/dL [facility] AND [id number] 01:17:00 Test Item Value Reference Range Interpretation Comments UA Glucose (test code = UA Negative mg/dL Glucose) [facility] AND [id number] 01:17:00 Test Item Value Reference Range Interpretation Comments UA pH (test code = UA pH) 5.0 1 5.0-8.0 [facility] AND [id number] 01:17:00 Test Item Value Reference Range Interpretation Comments UA Ketones (test code = UA Trace mg/dL Ketones) [facility] AND [id number] 01:17:00 Test Item Value Reference Range Interpretation Comments UA Blood (test code = Small *ABN*(02/20/19 UA Blood) 8:17 PM) [facility] AND [id number] 01:17:00 Test Item Value Reference Range Interpretation Comments UA Urobilinogen (test code = UA 2.0 0.1-1.0 Urobilinogen) [facility]SUSC:PT:ISOLATE:ORDQN:[id number] 01:17:00 Test Item Value Reference Range Interpretation Comments Culture: Urine (test 50,000 - 100,000 CFU/mL code = Culture: Escherichia coli , This Urine) Organism Produces An Extended Spectrum Beta Lactamase (ESBL). >100,000 CFU/mL Skin [facility] ÓscarMIKACIN:SUSC:PT:ISOLATE:ORDQN:[id number] 01:17:00 Test Item Value Reference Range Interpretation Comments Escherichia coli (test code Escherichia coli = Escherichia coli) [facility] [id number] 01:17:00 Test Item Value Reference Range Interpretation Comments Strep pneumoniae Ag Negative (02/20/19 8:17 (test code = Strep PM) pneumoniae Ag) [facility] [id number] 01:17:00 Test Item Value Reference Range Interpretation Comments Source Strep (test code Urine (02/20/19 8:17 PM) = Source Strep) [facility] AND [id number] 01:17:00 Test Item Value Reference Range Interpretation Comments UA Sq Epi (test code = UA Sq Epi) None Seen [facility] AND [id number] 01:17:00 Test Item Value Reference Range Interpretation Comments UA Nitrite (test code Negative (02/20/19 8:17 = UA Nitrite) PM) [facility] AND [id number] 01:17:00 Test Item Value Reference Range Interpretation Comments UA Leuk Est (test Moderate *ABN*(02/20/19 code = UA Leuk Est) 8:17 PM) [facility] AND [id number] 01:17:00 Test Item Value Reference Range Interpretation Comments UA WBC (test code = no gt See_Comment [Automa dewayne message] The UA WBC) system which ge nerated this result transmit dewayne reference range : <=5. The reference range was not used to interpr et this result as dallin l/abnormal. [facility] AND [id number] 01:17:00 Test Item Value Reference Range Interpretation Comments UA RBC (test code = 4 See_Comment [Automa dewayne message] The UA RBC) system which ge nerated this result transmit dewayne reference range : <=2. The reference range was not used to interpr et this result as dallin l/abnormal. [facility] AND [id number] 01:17:00 Test Item Value Reference Range Interpretation Comments UA Bacteria (test code = UA Many /HPF Bacteria) [facility] AND [id number] 01:17:00 Test Item Value Reference Range Interpretation Comments UA Spec Grav (test code = UA Spec 1.014 1 Grav) [facility] AND [id number] 01:17:00 Test Item Value Reference Range Interpretation Comments UA Turbidity (test code Marked *ABN*(02/20/19 = UA Turbidity) 8:17 PM) [facility] AND [id number] 01:17:00 Test Item Value Reference Range Interpretation Comments UA Color (test code = Yellow *NA*(02/20/19 8:17 UA Color) PM) [facility] AND [id number] 01:17:00 Test Item Value Reference Range Interpretation Comments UA Bili (test code = Negative *NA*(02/20/19 UA Bili) 8:17 PM) [facility] AND [id number] 01:17:00 Test Item Value Reference Range Interpretation Comments UA Protein (test code = UA Protein) 100 mg/dL [facility] AND [id number] 01:17:00 Test Item Value Reference Range Interpretation Comments UA Glucose (test code = UA Negative mg/dL Glucose) [facility] AND [id number] 01:17:00 Test Item Value Reference Range Interpretation Comments UA pH (test code = UA pH) 5.0 1 5.0-8.0 [facility] AND [id number] 01:17:00 Test Item Value Reference Range Interpretation Comments UA Ketones (test code = UA Trace mg/dL Ketones) [facility] AND [id number] 01:17:00 Test Item Value Reference Range Interpretation Comments UA Blood (test code = Small *ABN*(02/20/19 UA Blood) 8:17 PM) [facility] AND [id number] 01:17:00 Test Item Value Reference Range Interpretation Comments UA Urobilinogen (test code = UA 2.0 0.1-1.0 Urobilinogen) [facility]PT:ISOLATE:ORDQN:[id number] 01:17:00 Test Item Value Reference Range Interpretation Comments Culture: Urine (test 50,000 - 100,000 CFU/mL code = Culture: Escherichia coli , This Urine) Organism Produces An Extended Spectrum Beta Lactamase (ESBL). >100,000 CFU/mL [facility]LeslieMIKACIN:SUSC:PT:ISOLATE:ORDQN:[id number] 01:17:00 Test Item Value Reference Range Interpretation Comments Escherichia coli (test code Escherichia coli = Escherichia coli) [facility] [id number] 01:17:00 Test Item Value Reference Range Interpretation Comments Strep pneumoniae Ag Negative (02/20/19 8:17 (test code = Strep PM) pneumoniae Ag) [facility] [id number] 01:17:00 Test Item Value Reference Range Interpretation Comments Source Strep (test code Urine (02/20/19 8:17 PM) = Source Strep) [facility] AND [id number] 01:17:00 Test Item Value Reference Range Interpretation Comments UA Sq Epi (test code = UA Sq Epi) None Seen [facility] AND [id number] 01:17:00 Test Item Value Reference Range Interpretation Comments UA Nitrite (test code Negative (02/20/19 8:17 = UA Nitrite) PM) [facility] AND [id number] 01:17:00 Test Item Value Reference Range Interpretation Comments UA Leuk Est (test Moderate *ABN*(02/20/19 code = UA Leuk Est) 8:17 PM) [facility] AND [id number] 01:17:00 Test Item Value Reference Range Interpretation Comments UA WBC (test code = no gt See_Comment [Automa dewayne message] The UA WBC) system which ge nerated this result transmit dewayne reference range : <=5. The reference range was not used to interpr et this result as dallin l/abnormal. [facility] AND [id number] 01:17:00 Test Item Value Reference Range Interpretation Comments UA RBC (test code = 4 See_Comment [Automa dewayne message] The UA RBC) system which ge nerated this result transmit dewayne reference range : <=2. The reference range was not used to interpr et this result as dallin l/abnormal. [facility] AND [id number] 01:17:00 Test Item Value Reference Range Interpretation Comments UA Bacteria (test code = UA Many /HPF Bacteria) [facility] AND [id number] 01:17:00 Test Item Value Reference Range Interpretation Comments UA Spec Grav (test code = UA Spec 1.014 1 Grav) [facility] AND [id number] 01:17:00 Test Item Value Reference Range Interpretation Comments UA Turbidity (test code Marked *ABN*(02/20/19 = UA Turbidity) 8:17 PM) [facility] AND [id number] 01:17:00 Test Item Value Reference Range Interpretation Comments UA Color (test code = Yellow *NA*(02/20/19 8:17 UA Color) PM) [facility] AND [id number] 01:17:00 Test Item Value Reference Range Interpretation Comments UA Bili (test code = Negative *NA*(02/20/19 UA Bili) 8:17 PM) [facility] AND [id number] 01:17:00 Test Item Value Reference Range Interpretation Comments UA Protein (test code = UA Protein) 100 mg/dL [facility] AND [id number] 01:17:00 Test Item Value Reference Range Interpretation Comments UA Glucose (test code = UA Negative mg/dL Glucose) [facility] AND [id number] 01:17:00 Test Item Value Reference Range Interpretation Comments UA pH (test code = UA pH) 5.0 1 5.0-8.0 [facility] AND [id number] 01:17:00 Test Item Value Reference Range Interpretation Comments UA Ketones (test code = UA Trace mg/dL Ketones) [facility] AND [id number] 01:17:00 Test Item Value Reference Range Interpretation Comments UA Blood (test code = Small *ABN*(02/20/19 UA Blood) 8:17 PM) [facility] AND [id number] 01:17:00 Test Item Value Reference Range Interpretation Comments UA Urobilinogen (test code = UA 2.0 0.1-1.0 Urobilinogen) [facility]lie[facility]:SUSC:PT:ISOLATE:ORDQN:[id number] 01:17:00 Test Item Value Reference Range Interpretation Comments Culture: Urine (test 50,000 - 100,000 CFU/mL code = Culture: Escherichia coli , This Urine) Organism Produces An Extended Spectrum Beta Lactamase (ESBL). >100,000 CFU/mL Skin [facility]annAMIKACIN:SUSC:PT:ISOLATE:ORDQN:[id number] 01:17:00 Test Item Value Reference Range Interpretation Comments Escherichia coli (test code Escherichia coli = Escherichia coli) [facility] [id number] 01:17:00 Test Item Value Reference Range Interpretation Comments Strep pneumoniae Ag Negative (02/20/19 8:17 (test code = Strep PM) pneumoniae Ag) [facility] [id number] 01:17:00 Test Item Value Reference Range Interpretation Comments Source Strep (test code Urine (02/20/19 8:17 PM) = Source Strep) [facility] AND [id number] 01:17:00 Test Item Value Reference Range Interpretation Comments UA Sq Epi (test code = UA Sq Epi) None Seen [facility] AND [id number] 01:17:00 Test Item Value Reference Range Interpretation Comments UA Nitrite (test code Negative (02/20/19 8:17 = UA Nitrite) PM) [facility] AND [id number] 01:17:00 Test Item Value Reference Range Interpretation Comments UA Leuk Est (test Moderate *ABN*(02/20/19 code = UA Leuk Est) 8:17 PM) [facility] AND [id number] 01:17:00 Test Item Value Reference Range Interpretation Comments UA WBC (test code = no gt See_Comment [Automa dewayne message] The UA WBC) system which ge nerated this result transmit dewayne reference range : <=5. The reference range was not used to interpr et this result as dallin l/abnormal. [facility] AND [id number] 01:17:00 Test Item Value Reference Range Interpretation Comments UA RBC (test code = 4 See_Comment [Automa dewayne message] The UA RBC) system which ge nerated this result transmit dewayne reference range : <=2. The reference range was not used to interpr et this result as dallin l/abnormal. [facility] AND [id number] 01:17:00 Test Item Value Reference Range Interpretation Comments UA Bacteria (test code = UA Many /HPF Bacteria) [facility] AND [id number] 01:17:00 Test Item Value Reference Range Interpretation Comments UA Spec Grav (test code = UA Spec 1.014 1 Grav) [facility] AND [id number] 01:17:00 Test Item Value Reference Range Interpretation Comments UA Turbidity (test code Marked *ABN*(02/20/19 = UA Turbidity) 8:17 PM) [facility] AND [id number] 01:17:00 Test Item Value Reference Range Interpretation Comments UA Color (test code = Yellow *NA*(02/20/19 8:17 UA Color) PM) [facility] AND [id number] 01:17:00 Test Item Value Reference Range Interpretation Comments UA Bili (test code = Negative *NA*(02/20/19 UA Bili) 8:17 PM) [facility] AND [id number] 01:17:00 Test Item Value Reference Range Interpretation Comments UA Protein (test code = UA Protein) 100 mg/dL [facility] AND [id number] 01:17:00 Test Item Value Reference Range Interpretation Comments UA Glucose (test code = UA Negative mg/dL Glucose) [facility] AND [id number] 01:17:00 Test Item Value Reference Range Interpretation Comments UA pH (test code = UA pH) 5.0 1 5.0-8.0 [facility] AND [id number] 01:17:00 Test Item Value Reference Range Interpretation Comments UA Ketones (test code = UA Trace mg/dL Ketones) [facility] AND [id number] 01:17:00 Test Item Value Reference Range Interpretation Comments UA Blood (test code = Small *ABN*(02/20/19 UA Blood) 8:17 PM) [facility] AND [id number] 01:17:00 Test Item Value Reference Range Interpretation Comments UA Urobilinogen (test code = UA 2.0 0.1-1.0 Urobilinogen) [facility] JiaKACIN:SUSC:PT:ISOLATE:ORDQN:[id number] 01:17:00 Test Item Value Reference Range Interpretation Comments Culture: Urine (test 50,000 - 100,000 CFU/mL code = Culture: Escherichia coli , This Urine) Organism Produces An Extended Spectrum Beta Lactamase (ESBL). >100,000 CFU/mL Skin [facility] ÓscarMIKACIN:SUSC:PT:ISOLATE:ORDQN:[id number] 01:17:00 Test Item Value Reference Range Interpretation Comments Escherichia coli (test code Escherichia coli = Escherichia coli) [facility] [id number] 01:17:00 Test Item Value Reference Range Interpretation Comments Strep pneumoniae Ag Negative (02/20/19 8:17 (test code = Strep PM) pneumoniae Ag) [facility] [id number] 01:17:00 Test Item Value Reference Range Interpretation Comments Source Strep (test code Urine (02/20/19 8:17 PM) = Source Strep) [facility] AND [id number] 01:17:00 Test Item Value Reference Range Interpretation Comments UA Sq Epi (test code = UA Sq Epi) None Seen [facility] AND [id number] 01:17:00 Test Item Value Reference Range Interpretation Comments UA Nitrite (test code Negative (02/20/19 8:17 = UA Nitrite) PM) [facility] AND [id number] 01:17:00 Test Item Value Reference Range Interpretation Comments UA Leuk Est (test Moderate *ABN*(02/20/19 code = UA Leuk Est) 8:17 PM) [facility] AND [id number] 01:17:00 Test Item Value Reference Range Interpretation Comments UA WBC (test code = no gt See_Comment [Automa dewayne message] The UA WBC) system which ge nerated this result transmit dewayne reference range : <=5. The reference range was not used to interpr et this result as dallin l/abnormal. [facility] AND [id number] 01:17:00 Test Item Value Reference Range Interpretation Comments UA RBC (test code = 4 See_Comment [Automa dewayne message] The UA RBC) system which ge nerated this result transmit dewayne reference range : <=2. The reference range was not used to interpr et this result as dallin l/abnormal. [facility] AND [id number] 01:17:00 Test Item Value Reference Range Interpretation Comments UA Bacteria (test code = UA Many /HPF Bacteria) [facility] AND [id number] 01:17:00 Test Item Value Reference Range Interpretation Comments UA Spec Grav (test code = UA Spec 1.014 1 Grav) [facility] AND [id number] 01:17:00 Test Item Value Reference Range Interpretation Comments UA Turbidity (test code Marked *ABN*(02/20/19 = UA Turbidity) 8:17 PM) [facility] AND [id number] 01:17:00 Test Item Value Reference Range Interpretation Comments UA Color (test code = Yellow *NA*(02/20/19 8:17 UA Color) PM) [facility] AND [id number] 01:17:00 Test Item Value Reference Range Interpretation Comments UA Bili (test code = Negative *NA*(02/20/19 UA Bili) 8:17 PM) [facility] AND [id number] 01:17:00 Test Item Value Reference Range Interpretation Comments UA Protein (test code = UA Protein) 100 mg/dL [facility] AND [id number] 01:17:00 Test Item Value Reference Range Interpretation Comments UA Glucose (test code = UA Negative mg/dL Glucose) [facility] AND [id number] 01:17:00 Test Item Value Reference Range Interpretation Comments UA pH (test code = UA pH) 5.0 1 5.0-8.0 [facility] AND [id number] 01:17:00 Test Item Value Reference Range Interpretation Comments UA Ketones (test code = UA Trace mg/dL Ketones) [facility] AND [id number] 01:17:00 Test Item Value Reference Range Interpretation Comments UA Blood (test code = Small *ABN*(02/20/19 UA Blood) 8:17 PM) [facility] AND [id number] 01:17:00 Test Item Value Reference Range Interpretation Comments UA Urobilinogen (test code = UA 2.0 0.1-1.0 Urobilinogen) [facility] JiaKACIN:SUSC:PT:ISOLATE:ORDQN:[id number] 01:17:00 Test Item Value Reference Range Interpretation Comments Culture: Urine (test 50,000 - 100,000 CFU/mL code = Culture: Escherichia coli , This Urine) Organism Produces An Extended Spectrum Beta Lactamase (ESBL). >100,000 CFU/mL Skin [facility] JiaKACIN:SUSC:PT:ISOLATE:ORDQN:[id number] 01:17:00 Test Item Value Reference Range Interpretation Comments Escherichia coli (test code Escherichia coli = Escherichia coli) [facility] [id number] 01:17:00 Test Item Value Reference Range Interpretation Comments Strep pneumoniae Ag Negative (02/20/19 8:17 (test code = Strep PM) pneumoniae Ag) [facility] [id number] 01:17:00 Test Item Value Reference Range Interpretation Comments Source Strep (test code Urine (02/20/19 8:17 PM) = Source Strep) [facility] AND [id number] 01:17:00 Test Item Value Reference Range Interpretation Comments UA Sq Epi (test code = UA Sq Epi) None Seen [facility] AND [id number] 01:17:00 Test Item Value Reference Range Interpretation Comments UA Nitrite (test code Negative (02/20/19 8:17 = UA Nitrite) PM) [facility] AND [id number] 01:17:00 Test Item Value Reference Range Interpretation Comments UA Leuk Est (test Moderate *ABN*(02/20/19 code = UA Leuk Est) 8:17 PM) [facility] AND [id number] 01:17:00 Test Item Value Reference Range Interpretation Comments UA WBC (test code = no gt See_Comment [Automa dewayne message] The UA WBC) system which ge nerated this result transmit dewayne reference range : <=5. The reference range was not used to interpr et this result as dallin l/abnormal. [facility] AND [id number] 01:17:00 Test Item Value Reference Range Interpretation Comments UA RBC (test code = 4 See_Comment [Automa dewayne message] The UA RBC) system which ge nerated this result transmit dewayne reference range : <=2. The reference range was not used to interpr et this result as dallin l/abnormal. [facility] AND [id number] 01:17:00 Test Item Value Reference Range Interpretation Comments UA Bacteria (test code = UA Many /HPF Bacteria) [facility] AND [id number] 01:17:00 Test Item Value Reference Range Interpretation Comments UA Spec Grav (test code = UA Spec 1.014 1 Grav) [facility] AND [id number] 01:17:00 Test Item Value Reference Range Interpretation Comments UA Turbidity (test code Marked *ABN*(02/20/19 = UA Turbidity) 8:17 PM) [facility] AND [id number] 01:17:00 Test Item Value Reference Range Interpretation Comments UA Color (test code = Yellow *NA*(02/20/19 8:17 UA Color) PM) [facility] AND [id number] 01:17:00 Test Item Value Reference Range Interpretation Comments UA Bili (test code = Negative *NA*(02/20/19 UA Bili) 8:17 PM) [facility] AND [id number] 01:17:00 Test Item Value Reference Range Interpretation Comments UA Protein (test code = UA Protein) 100 mg/dL [facility] AND [id number] 01:17:00 Test Item Value Reference Range Interpretation Comments UA Glucose (test code = UA Negative mg/dL Glucose) [facility] AND [id number] 01:17:00 Test Item Value Reference Range Interpretation Comments UA pH (test code = UA pH) 5.0 1 5.0-8.0 [facility] AND [id number] 01:17:00 Test Item Value Reference Range Interpretation Comments UA Ketones (test code = UA Trace mg/dL Ketones) [facility] AND [id number] 01:17:00 Test Item Value Reference Range Interpretation Comments UA Blood (test code = Small *ABN*(02/20/19 UA Blood) 8:17 PM) [facility] AND [id number] 01:17:00 Test Item Value Reference Range Interpretation Comments UA Urobilinogen (test code = UA 2.0 0.1-1.0 Urobilinogen) [facility] JiaKACIN:SUSC:PT:ISOLATE:ORDQN:[id number] 01:17:00 Test Item Value Reference Range Interpretation Comments Culture: Urine (test 50,000 - 100,000 CFU/mL code = Culture: Escherichia coli , This Urine) Organism Produces An Extended Spectrum Beta Lactamase (ESBL). >100,000 CFU/mL Skin Louise [facility] JiaKACIN:SUSC:PT:ISOLATE:ORDQN:[id number] 01:17:00 Test Item Value Reference Range Interpretation Comments Escherichia coli (test code Escherichia coli = Escherichia coli) [facility] [id number] 01:17:00 Test Item Value Reference Range Interpretation Comments Strep pneumoniae Ag Negative (02/20/19 8:17 (test code = Strep PM) pneumoniae Ag) [facility] [id number] 01:17:00 Test Item Value Reference Range Interpretation Comments Source Strep (test code Urine (02/20/19 8:17 PM) = Source Strep) [facility] AND [id number] 01:17:00 Test Item Value Reference Range Interpretation Comments UA Sq Epi (test code = UA Sq Epi) None Seen [facility] AND [id number] 01:17:00 Test Item Value Reference Range Interpretation Comments UA Nitrite (test code Negative (02/20/19 8:17 = UA Nitrite) PM) [facility] AND [id number] 01:17:00 Test Item Value Reference Range Interpretation Comments UA Leuk Est (test Moderate *ABN*(02/20/19 code = UA Leuk Est) 8:17 PM) [facility] AND [id number] 01:17:00 Test Item Value Reference Range Interpretation Comments UA WBC (test code = no gt See_Comment [Automa dewayne message] The UA WBC) system which ge nerated this result transmit dewayne reference range : <=5. The reference range was not used to interpr et this result as dallin l/abnormal. [facility] AND [id number] 01:17:00 Test Item Value Reference Range Interpretation Comments UA RBC (test code = 4 See_Comment [Automa dewayne message] The UA RBC) system which ge nerated this result transmit dewayne reference range : <=2. The reference range was not used to interpr et this result as dallin l/abnormal. [facility] AND [id number] 01:17:00 Test Item Value Reference Range Interpretation Comments UA Bacteria (test code = UA Many /HPF Bacteria) [facility] AND [id number] 01:17:00 Test Item Value Reference Range Interpretation Comments UA Spec Grav (test code = UA Spec 1.014 1 Grav) [facility] [id number] 01:17:00 Test Item Value Reference Range Interpretation Comments UA Turbidity (test code Marked *ABN*(02/20/19 = UA Turbidity) 8:17 PM) [facility] AND [id number] 01:17:00 Test Item Value Reference Range Interpretation Comments UA Color (test code = Yellow *NA*(02/20/19 8:17 UA Color) PM) [facility] AND [id number] 01:17:00 Test Item Value Reference Range Interpretation Comments UA Bili (test code = Negative *NA*(02/20/19 UA Bili) 8:17 PM) [facility] AND [id number] 01:17:00 Test Item Value Reference Range Interpretation Comments UA Protein (test code = UA Protein) 100 mg/dL [facility] [id number] 01:17:00 Test Item Value Reference Range Interpretation Comments UA Glucose (test code = UA Negative mg/dL Glucose) [facility] AND [id number] 01:17:00 Test Item Value Reference Range Interpretation Comments UA pH (test code = UA pH) 5.0 1 5.0-8.0 [facility] [id number] 01:17:00 Test Item Value Reference Range Interpretation Comments UA Ketones (test code = UA Trace mg/dL Ketones) [facility] AND [id number] 01:17:00 Test Item Value Reference Range Interpretation Comments UA Blood (test code = Small *ABN*(02/20/19 UA Blood) 8:17 PM) [facility] [id number] 01:17:00 Test Item Value Reference Range Interpretation Comments UA Urobilinogen (test code = UA 2.0 0.1-1.0 Urobilinogen) [facility] JiaKACIN:SUSC:PT:ISOLATE:ORDQN:[id number] 01:17:00 Test Item Value Reference Range Interpretation Comments Culture: Urine (test 50,000 - 100,000 CFU/mL code = Culture: Escherichia coli , This Urine) Organism Produces An Extended Spectrum Beta Lactamase (ESBL). >100,000 CFU/mL Skin [facility]elle[facility]IN:SUSC:PT:ISOLATE:ORDQN:[id number] 01:17:00 Test Item Value Reference Range Interpretation Comments Escherichia coli (test code Escherichia coli = Escherichia coli) [facility] [id number] 01:17:00 Test Item Value Reference Range Interpretation Comments Strep pneumoniae Ag Negative (02/20/19 8:17 (test code = Strep PM) pneumoniae Ag) [facility] [id number] 01:17:00 Test Item Value Reference Range Interpretation Comments Source Strep (test code Urine (02/20/19 8:17 PM) = Source Strep) [facility] [id number] 01:17:00 Test Item Value Reference Range Interpretation Comments UA Sq Epi (test code = UA Sq Epi) None Seen [facility] AND [id number] 01:17:00 Test Item Value Reference Range Interpretation Comments UA Nitrite (test code Negative (02/20/19 8:17 = UA Nitrite) PM) [facility] AND [id number] 01:17:00 Test Item Value Reference Range Interpretation Comments UA Leuk Est (test Moderate *ABN*(02/20/19 code = UA Leuk Est) 8:17 PM) [facility] AND [id number] 01:17:00 Test Item Value Reference Range Interpretation Comments UA WBC (test code = no gt See_Comment [Automa dewayne message] The UA WBC) system which ge nerated this result transmit dewayne reference range : <=5. The reference range was not used to interpr et this result as dallin l/abnormal. [facility] AND [id number] 01:17:00 Test Item Value Reference Range Interpretation Comments UA RBC (test code = 4 See_Comment [Automa dewayne message] The UA RBC) system which ge nerated this result transmit dewayne reference range : <=2. The reference range was not used to interpr et this result as dallin l/abnormal. [facility] AND [id number] 01:17:00 Test Item Value Reference Range Interpretation Comments UA Bacteria (test code = UA Many /HPF Bacteria) [facility] AND [id number] 01:17:00 Test Item Value Reference Range Interpretation Comments UA Spec Grav (test code = UA Spec 1.014 1 Grav) [facility] AND [id number] 01:17:00 Test Item Value Reference Range Interpretation Comments UA Turbidity (test code Marked *ABN*(02/20/19 = UA Turbidity) 8:17 PM) [facility] AND [id number] 01:17:00 Test Item Value Reference Range Interpretation Comments UA Color (test code = Yellow *NA*(02/20/19 8:17 UA Color) PM) [facility] AND [id number] 01:17:00 Test Item Value Reference Range Interpretation Comments UA Bili (test code = Negative *NA*(02/20/19 UA Bili) 8:17 PM) [facility] [id number] 01:17:00 Test Item Value Reference Range Interpretation Comments UA Protein (test code = UA Protein) 100 mg/dL [facility] AND [id number] 01:17:00 Test Item Value Reference Range Interpretation Comments UA Glucose (test code = UA Negative mg/dL Glucose) [facility] AND [id number] 01:17:00 Test Item Value Reference Range Interpretation Comments UA pH (test code = UA pH) 5.0 1 5.0-8.0 [facility] AND [id number] 01:17:00 Test Item Value Reference Range Interpretation Comments UA Ketones (test code = UA Trace mg/dL Ketones) [facility] AND [id number] 01:17:00 Test Item Value Reference Range Interpretation Comments UA Blood (test code = Small *ABN*(02/20/19 UA Blood) 8:17 PM) [facility] AND [id number] 01:17:00 Test Item Value Reference Range Interpretation Comments UA Urobilinogen (test code = UA 2.0 0.1-1.0 Urobilinogen) [facility] MichelleCIN:SUSC:PT:ISOLATE:ORDQN:[id number] 01:17:00 Test Item Value Reference Range Interpretation Comments Culture: Urine (test 50,000 - 100,000 CFU/mL code = Culture: Escherichia coli , This Urine) Organism Produces An Extended Spectrum Beta Lactamase (ESBL). >100,000 CFU/mL Skin Louise [facility] Shiela:SUSC:PT:ISOLATE:ORDQN:[id number] 01:17:00 Test Item Value Reference Range Interpretation Comments Escherichia coli (test code Escherichia coli = Escherichia coli) [facility] [id number] 01:17:00 Test Item Value Reference Range Interpretation Comments Strep pneumoniae Ag Negative (02/20/19 8:17 (test code = Strep PM) pneumoniae Ag) [facility] [id number] 01:17:00 Test Item Value Reference Range Interpretation Comments Source Strep (test code Urine (02/20/19 8:17 PM) = Source Strep) [facility] AND [id number] 01:17:00 Test Item Value Reference Range Interpretation Comments UA Sq Epi (test code = UA Sq Epi) None Seen [facility] AND [id number] 01:17:00 Test Item Value Reference Range Interpretation Comments UA Nitrite (test code Negative (02/20/19 8:17 = UA Nitrite) PM) [facility] AND [id number] 01:17:00 Test Item Value Reference Range Interpretation Comments UA Leuk Est (test Moderate *ABN*(02/20/19 code = UA Leuk Est) 8:17 PM) [facility] AND [id number] 01:17:00 Test Item Value Reference Range Interpretation Comments UA WBC (test code = no gt See_Comment [Automa dewayne message] The UA WBC) system which ge nerated this result transmit dewayne reference range : <=5. The reference range was not used to interpr et this result as dallin l/abnormal. [facility] AND [id number] 01:17:00 Test Item Value Reference Range Interpretation Comments UA RBC (test code = 4 See_Comment [Automa dewayne message] The UA RBC) system which ge nerated this result transmit dewayne reference range : <=2. The reference range was not used to interpr et this result as dallin l/abnormal. [facility] AND [id number] 01:17:00 Test Item Value Reference Range Interpretation Comments UA Bacteria (test code = UA Many /HPF Bacteria) [facility] AND [id number] 01:17:00 Test Item Value Reference Range Interpretation Comments UA Spec Grav (test code = UA Spec 1.014 1 Grav) [facility] AND [id number] 01:17:00 Test Item Value Reference Range Interpretation Comments UA Turbidity (test code Marked *ABN*(02/20/19 = UA Turbidity) 8:17 PM) [facility] AND [id number] 01:17:00 Test Item Value Reference Range Interpretation Comments UA Color (test code = Yellow *NA*(02/20/19 8:17 UA Color) PM) [facility] AND [id number] 01:17:00 Test Item Value Reference Range Interpretation Comments UA Bili (test code = Negative *NA*(02/20/19 UA Bili) 8:17 PM) [facility] AND [id number] 01:17:00 Test Item Value Reference Range Interpretation Comments UA Protein (test code = UA Protein) 100 mg/dL [facility] AND [id number] 01:17:00 Test Item Value Reference Range Interpretation Comments UA Glucose (test code = UA Negative mg/dL Glucose) [facility] AND [id number] 01:17:00 Test Item Value Reference Range Interpretation Comments UA pH (test code = UA pH) 5.0 1 5.0-8.0 [facility] AND [id number] 01:17:00 Test Item Value Reference Range Interpretation Comments UA Ketones (test code = UA Trace mg/dL Ketones) [facility] AND [id number] 01:17:00 Test Item Value Reference Range Interpretation Comments UA Blood (test code = Small *ABN*(02/20/19 UA Blood) 8:17 PM) [facility] AND [id number] 01:17:00 Test Item Value Reference Range Interpretation Comments UA Urobilinogen (test code = UA 2.0 0.1-1.0 Urobilinogen) [facility]:PT:ISOLATE:ORDQN:[id number] 01:17:00 Test Item Value Reference Range Interpretation Comments Culture: Urine (test 50,000 - 100,000 CFU/mL code = Culture: Escherichia coli , This Urine) Organism Produces An Extended Spectrum Beta Lactamase (ESBL). >100,000 CFU/mL Skin [facility]ArielleKACIN:SUSC:PT:ISOLATE:ORDQN:[id number] 01:17:00 Test Item Value Reference Range Interpretation Comments Escherichia coli (test code Escherichia coli = Escherichia coli) [facility] [id number] 01:17:00 Test Item Value Reference Range Interpretation Comments Strep pneumoniae Ag Negative (02/20/19 8:17 (test code = Strep PM) pneumoniae Ag) [facility] [id number] 01:17:00 Test Item Value Reference Range Interpretation Comments Source Strep (test code Urine (02/20/19 8:17 PM) = Source Strep) [facility] AND [id number] 01:17:00 Test Item Value Reference Range Interpretation Comments UA Sq Epi (test code = UA Sq Epi) None Seen [facility] AND [id number] 01:17:00 Test Item Value Reference Range Interpretation Comments UA Nitrite (test code Negative (02/20/19 8:17 = UA Nitrite) PM) [facility] AND [id number] 01:17:00 Test Item Value Reference Range Interpretation Comments UA Leuk Est (test Moderate *ABN*(02/20/19 code = UA Leuk Est) 8:17 PM) [facility] AND [id number] 01:17:00 Test Item Value Reference Range Interpretation Comments UA WBC (test code = no gt See_Comment [Automa dewayne message] The UA WBC) system which ge nerated this result transmit dewayne reference range : <=5. The reference range was not used to interpr et this result as dallin l/abnormal. [facility] AND [id number] 01:17:00 Test Item Value Reference Range Interpretation Comments UA RBC (test code = 4 See_Comment [Automa dewayne message] The UA RBC) system which ge nerated this result transmit dewayne reference range : <=2. The reference range was not used to interpr et this result as dallin l/abnormal. [facility] AND [id number] 01:17:00 Test Item Value Reference Range Interpretation Comments UA Bacteria (test code = UA Many /HPF Bacteria) [facility] AND [id number] 01:17:00 Test Item Value Reference Range Interpretation Comments UA Spec Grav (test code = UA Spec 1.014 1 Grav) [facility] AND [id number] 01:17:00 Test Item Value Reference Range Interpretation Comments UA Turbidity (test code Marked *ABN*(02/20/19 = UA Turbidity) 8:17 PM) [facility] AND [id number] 01:17:00 Test Item Value Reference Range Interpretation Comments UA Color (test code = Yellow *NA*(02/20/19 8:17 UA Color) PM) [facility] AND [id number] 01:17:00 Test Item Value Reference Range Interpretation Comments UA Bili (test code = Negative *NA*(02/20/19 UA Bili) 8:17 PM) [facility] AND [id number] 01:17:00 Test Item Value Reference Range Interpretation Comments UA Protein (test code = UA Protein) 100 mg/dL [facility] AND [id number] 01:17:00 Test Item Value Reference Range Interpretation Comments UA Glucose (test code = UA Negative mg/dL Glucose) [facility] AND [id number] 01:17:00 Test Item Value Reference Range Interpretation Comments UA pH (test code = UA pH) 5.0 1 5.0-8.0 [facility] AND [id number] 01:17:00 Test Item Value Reference Range Interpretation Comments UA Ketones (test code = UA Trace mg/dL Ketones) [facility] AND [id number] 01:17:00 Test Item Value Reference Range Interpretation Comments UA Blood (test code = Small *ABN*(02/20/19 UA Blood) 8:17 PM) [facility] AND [id number] 01:17:00 Test Item Value Reference Range Interpretation Comments UA Urobilinogen (test code = UA 2.0 0.1-1.0 Urobilinogen) [facility]SUSC:PT:ISOLATE:ORDQN:[id number] 01:17:00 Test Item Value Reference Range Interpretation Comments Culture: Urine (test 50,000 - 100,000 CFU/mL code = Culture: Escherichia coli , This Urine) Organism Produces An Extended Spectrum Beta Lactamase (ESBL). >100,000 CFU/mL Skin Louise [facility] JiaKACIN:SUSC:PT:ISOLATE:ORDQN:[id number] 01:17:00 Test Item Value Reference Range Interpretation Comments Escherichia coli (test code Escherichia coli = Escherichia coli) [facility] [id number] 01:17:00 Test Item Value Reference Range Interpretation Comments Strep pneumoniae Ag Negative (02/20/19 8:17 (test code = Strep PM) pneumoniae Ag) [facility] [id number] 01:17:00 Test Item Value Reference Range Interpretation Comments Source Strep (test code Urine (02/20/19 8:17 PM) = Source Strep) [facility] AND [id number] 01:17:00 Test Item Value Reference Range Interpretation Comments UA Sq Epi (test code = UA Sq Epi) None Seen [facility] AND [id number] 01:17:00 Test Item Value Reference Range Interpretation Comments UA Nitrite (test code Negative (02/20/19 8:17 = UA Nitrite) PM) [facility] AND [id number] 01:17:00 Test Item Value Reference Range Interpretation Comments UA Leuk Est (test Moderate *ABN*(02/20/19 code = UA Leuk Est) 8:17 PM) [facility] AND [id number] 01:17:00 Test Item Value Reference Range Interpretation Comments UA WBC (test code = no gt See_Comment [Automa dewayne message] The UA WBC) system which ge nerated this result transmit dewayne reference range : <=5. The reference range was not used to interpr et this result as dallin l/abnormal. [facility] [id number] 01:17:00 Test Item Value Reference Range Interpretation Comments UA RBC (test code = 4 See_Comment [Automa dewayne message] The UA RBC) system which ge nerated this result transmit dewayne reference range : <=2. The reference range was not used to interpr et this result as dallin l/abnormal. [facility] AND [id number] 01:17:00 Test Item Value Reference Range Interpretation Comments UA Bacteria (test code = UA Many /HPF Bacteria) [facility] AND [id number] 01:17:00 Test Item Value Reference Range Interpretation Comments UA Spec Grav (test code = UA Spec 1.014 1 Grav) [facility] AND [id number] 01:17:00 Test Item Value Reference Range Interpretation Comments UA Turbidity (test code Marked *ABN*(02/20/19 = UA Turbidity) 8:17 PM) [facility] AND [id number] 01:17:00 Test Item Value Reference Range Interpretation Comments UA Color (test code = Yellow *NA*(02/20/19 8:17 UA Color) PM) [facility] AND [id number] 01:17:00 Test Item Value Reference Range Interpretation Comments UA Bili (test code = Negative *NA*(02/20/19 UA Bili) 8:17 PM) [facility] AND [id number] 01:17:00 Test Item Value Reference Range Interpretation Comments UA Protein (test code = UA Protein) 100 mg/dL [facility] AND [id number] 01:17:00 Test Item Value Reference Range Interpretation Comments UA Glucose (test code = UA Negative mg/dL Glucose) [facility] AND [id number] 01:17:00 Test Item Value Reference Range Interpretation Comments UA pH (test code = UA pH) 5.0 1 5.0-8.0 [facility] AND [id number] 01:17:00 Test Item Value Reference Range Interpretation Comments UA Ketones (test code = UA Trace mg/dL Ketones) [facility] AND [id number] 01:17:00 Test Item Value Reference Range Interpretation Comments UA Blood (test code = Small *ABN*(02/20/19 UA Blood) 8:17 PM) [facility] AND [id number] 01:17:00 Test Item Value Reference Range Interpretation Comments UA Urobilinogen (test code = UA 2.0 0.1-1.0 Urobilinogen) [facility]lieMIKACIN:SUSC:PT:ISOLATE:ORDQN:[id number] 01:17:00 Test Item Value Reference Range Interpretation Comments Culture: Urine (test 50,000 - 100,000 CFU/mL code = Culture: Escherichia coli , This Urine) Organism Produces An Extended Spectrum Beta Lactamase (ESBL). >100,000 CFU/mL Skin Louise [facility] JiaKACIN:SUSC:PT:ISOLATE:ORDQN:[id number] 01:17:00 Test Item Value Reference Range Interpretation Comments Escherichia coli (test code Escherichia coli = Escherichia coli) [facility] [id number] 01:17:00 Test Item Value Reference Range Interpretation Comments Strep pneumoniae Ag Negative (02/20/19 8:17 (test code = Strep PM) pneumoniae Ag) [facility] [id number] 01:17:00 Test Item Value Reference Range Interpretation Comments Source Strep (test code Urine (02/20/19 8:17 PM) = Source Strep) [facility] AND [id number] 01:17:00 Test Item Value Reference Range Interpretation Comments UA Sq Epi (test code = UA Sq Epi) None Seen [facility] AND [id number] 01:17:00 Test Item Value Reference Range Interpretation Comments UA Nitrite (test code Negative (02/20/19 8:17 = UA Nitrite) PM) [facility] AND [id number] 01:17:00 Test Item Value Reference Range Interpretation Comments UA Leuk Est (test Moderate *ABN*(02/20/19 code = UA Leuk Est) 8:17 PM) [facility] AND [id number] 01:17:00 Test Item Value Reference Range Interpretation Comments UA WBC (test code = no gt See_Comment [Automa dewayne message] The UA WBC) system which ge nerated this result transmit dewayne reference range : <=5. The reference range was not used to interpr et this result as dallin l/abnormal. [facility] AND [id number] 01:17:00 Test Item Value Reference Range Interpretation Comments UA RBC (test code = 4 See_Comment [Automa dewayne message] The UA RBC) system which ge nerated this result transmit dewayne reference range : <=2. The reference range was not used to interpr et this result as dallin l/abnormal. [facility] AND [id number] 01:17:00 Test Item Value Reference Range Interpretation Comments UA Bacteria (test code = UA Many /HPF Bacteria) [facility] AND [id number] 01:17:00 Test Item Value Reference Range Interpretation Comments UA Spec Grav (test code = UA Spec 1.014 1 Grav) [facility] AND [id number] 01:17:00 Test Item Value Reference Range Interpretation Comments UA Turbidity (test code Marked *ABN*(02/20/19 = UA Turbidity) 8:17 PM) [facility] AND [id number] 01:17:00 Test Item Value Reference Range Interpretation Comments UA Color (test code = Yellow *NA*(02/20/19 8:17 UA Color) PM) [facility] AND [id number] 01:17:00 Test Item Value Reference Range Interpretation Comments UA Bili (test code = Negative *NA*(02/20/19 UA Bili) 8:17 PM) [facility] AND [id number] 01:17:00 Test Item Value Reference Range Interpretation Comments UA Protein (test code = UA Protein) 100 mg/dL [facility] AND [id number] 01:17:00 Test Item Value Reference Range Interpretation Comments UA Glucose (test code = UA Negative mg/dL Glucose) [facility] AND [id number] 01:17:00 Test Item Value Reference Range Interpretation Comments UA pH (test code = UA pH) 5.0 1 5.0-8.0 [facility] AND [id number] 01:17:00 Test Item Value Reference Range Interpretation Comments UA Ketones (test code = UA Trace mg/dL Ketones) [facility] [id number] 01:17:00 Test Item Value Reference Range Interpretation Comments UA Blood (test code = Small *ABN*(02/20/19 UA Blood) 8:17 PM) [facility] AND [id number] 01:17:00 Test Item Value Reference Range Interpretation Comments UA Urobilinogen (test code = UA 2.0 0.1-1.0 Urobilinogen) [facility]:PT:ISOLATE:ORDQN:[id number] 01:17:00 Test Item Value Reference Range Interpretation Comments Culture: Urine (test 50,000 - 100,000 CFU/mL code = Culture: Escherichia coli , This Urine) Organism Produces An Extended Spectrum Beta Lactamase (ESBL). >100,000 CFU/mL Skin [facility]LeslieMIKACIN:SUSC:PT:ISOLATE:ORDQN:[id number] 01:17:00 Test Item Value Reference Range Interpretation Comments Escherichia coli (test code Escherichia coli = Escherichia coli) [facility] [id number] 01:17:00 Test Item Value Reference Range Interpretation Comments Strep pneumoniae Ag Negative (02/20/19 8:17 (test code = Strep PM) pneumoniae Ag) [facility] [id number] 01:17:00 Test Item Value Reference Range Interpretation Comments Source Strep (test code Urine (02/20/19 8:17 PM) = Source Strep) [facility] [id number] 01:17:00 Test Item Value Reference Range Interpretation Comments UA Sq Epi (test code = UA Sq Epi) None Seen [facility] [id number] 01:17:00 Test Item Value Reference Range Interpretation Comments UA Nitrite (test code Negative (02/20/19 8:17 = UA Nitrite) PM) [facility] AND [id number] 01:17:00 Test Item Value Reference Range Interpretation Comments UA Leuk Est (test Moderate *ABN*(02/20/19 code = UA Leuk Est) 8:17 PM) [facility] AND [id number] 01:17:00 Test Item Value Reference Range Interpretation Comments UA WBC (test code = no gt See_Comment [Automa dewayne message] The UA WBC) system which ge nerated this result transmit dewayne reference range : <=5. The reference range was not used to interpr et this result as dallin l/abnormal. [facility] AND [id number] 01:17:00 Test Item Value Reference Range Interpretation Comments UA RBC (test code = 4 See_Comment [Automa dewayne message] The UA RBC) system which ge nerated this result transmit dewayne reference range : <=2. The reference range was not used to interpr et this result as dallin l/abnormal. [facility] [id number] 01:17:00 Test Item Value Reference Range Interpretation Comments UA Bacteria (test code = UA Many /HPF Bacteria) [facility] AND [id number] 01:17:00 Test Item Value Reference Range Interpretation Comments UA Spec Grav (test code = UA Spec 1.014 1 Grav) [facility] [id number] 01:17:00 Test Item Value Reference Range Interpretation Comments UA Turbidity (test code Marked *ABN*(02/20/19 = UA Turbidity) 8:17 PM) [facility] [id number] 01:17:00 Test Item Value Reference Range Interpretation Comments UA Color (test code = Yellow *NA*(02/20/19 8:17 UA Color) PM) [facility] [id number] 01:17:00 Test Item Value Reference Range Interpretation Comments UA Bili (test code = Negative *NA*(02/20/19 UA Bili) 8:17 PM) [facility] [id number] 01:17:00 Test Item Value Reference Range Interpretation Comments UA Protein (test code = UA Protein) 100 mg/dL [facility] [id number] 01:17:00 Test Item Value Reference Range Interpretation Comments UA Glucose (test code = UA Negative mg/dL Glucose) [facility] AND [id number] 01:17:00 Test Item Value Reference Range Interpretation Comments UA pH (test code = UA pH) 5.0 1 5.0-8.0 [facility] [id number] 01:17:00 Test Item Value Reference Range Interpretation Comments UA Ketones (test code = UA Trace mg/dL Ketones) [facility] [id number] 01:17:00 Test Item Value Reference Range Interpretation Comments UA Blood (test code = Small *ABN*(02/20/19 UA Blood) 8:17 PM) [facility] [id number] 01:17:00 Test Item Value Reference Range Interpretation Comments UA Urobilinogen (test code = UA 2.0 0.1-1.0 Urobilinogen) [facility]MI[facility]:SUSC:PT:ISOLATE:ORDQN:[id number] 01:17:00 Test Item Value Reference Range Interpretation Comments Culture: Urine (test 50,000 - 100,000 CFU/mL code = Culture: Escherichia coli , This Urine) Organism Produces An Extended Spectrum Beta Lactamase (ESBL). >100,000 CFU/mL Skin [facility]LeslieMIK[facility]IN:SUSC:PT:ISOLATE:ORDQN:[id number] 01:17:00 Test Item Value Reference Range Interpretation Comments Escherichia coli (test code Escherichia coli = Escherichia coli) [facility] [id number] 01:17:00 Test Item Value Reference Range Interpretation Comments Strep pneumoniae Ag Negative (02/20/19 8:17 (test code = Strep PM) pneumoniae Ag) [facility] [id number] 01:17:00 Test Item Value Reference Range Interpretation Comments Source Strep (test code Urine (02/20/19 8:17 PM) = Source Strep) [facility] [id number] 01:17:00 Test Item Value Reference Range Interpretation Comments UA Sq Epi (test code = UA Sq Epi) None Seen [facility] [id number] 01:17:00 Test Item Value Reference Range Interpretation Comments UA Nitrite (test code Negative (02/20/19 8:17 = UA Nitrite) PM) [facility] AND [id number] 01:17:00 Test Item Value Reference Range Interpretation Comments UA Leuk Est (test Moderate *ABN*(02/20/19 code = UA Leuk Est) 8:17 PM) [facility] AND [id number] 01:17:00 Test Item Value Reference Range Interpretation Comments UA WBC (test code = no gt See_Comment [Automa dewayne message] The UA WBC) system which ge nerated this result transmit dewayne reference range : <=5. The reference range was not used to interpr et this result as dallin l/abnormal. [facility] AND [id number] 01:17:00 Test Item Value Reference Range Interpretation Comments UA RBC (test code = 4 See_Comment [Automa dewayne message] The UA RBC) system which ge nerated this result transmit dewayne reference range : <=2. The reference range was not used to interpr et this result as dallin l/abnormal. [facility] AND [id number] 01:17:00 Test Item Value Reference Range Interpretation Comments UA Bacteria (test code = UA Many /HPF Bacteria) [facility] AND [id number] 01:17:00 Test Item Value Reference Range Interpretation Comments UA Spec Grav (test code = UA Spec 1.014 1 Grav) [facility] AND [id number] 01:17:00 Test Item Value Reference Range Interpretation Comments UA Turbidity (test code Marked *ABN*(02/20/19 = UA Turbidity) 8:17 PM) [facility] AND [id number] 01:17:00 Test Item Value Reference Range Interpretation Comments UA Color (test code = Yellow *NA*(02/20/19 8:17 UA Color) PM) [facility] AND [id number] 01:17:00 Test Item Value Reference Range Interpretation Comments UA Bili (test code = Negative *NA*(02/20/19 UA Bili) 8:17 PM) [facility] AND [id number] 01:17:00 Test Item Value Reference Range Interpretation Comments UA Protein (test code = UA Protein) 100 mg/dL [facility] AND [id number] 01:17:00 Test Item Value Reference Range Interpretation Comments UA Glucose (test code = UA Negative mg/dL Glucose) [facility] AND [id number] 01:17:00 Test Item Value Reference Range Interpretation Comments UA pH (test code = UA pH) 5.0 1 5.0-8.0 [facility] AND [id number] 01:17:00 Test Item Value Reference Range Interpretation Comments UA Ketones (test code = UA Trace mg/dL Ketones) [facility] AND [id number] 01:17:00 Test Item Value Reference Range Interpretation Comments UA Blood (test code = Small *ABN*(02/20/19 UA Blood) 8:17 PM) [facility] AND [id number] 01:17:00 Test Item Value Reference Range Interpretation Comments UA Urobilinogen (test code = UA 2.0 0.1-1.0 Urobilinogen) [facility]2019-06-09 00:42:00 Test Item Value Reference Range Interpretation Comments Procalcitonin Lvl (test code = 4.06 <=0.10 Procalcitonin Lvl) [facility]2019-06-09 00:42:00 Test Item Value Reference Range Interpretation Comments Lactic Acid Lvl (test code = Lactic 2.0 0.5-2.2 Acid Lvl) [facility]vvfCCHATCREWB3237-01-89 00:42:00 Test Item Value Reference Range Interpretation Comments Anisocyte (test code = 1+ *ABN*(02/20/19 7:42 Anisocyte) PM) [facility]OepladlUCVZCZIQUF9633-26-72 00:42:00 Test Item Value Reference Range Interpretation Comments Plt Morph (test code = Normal (02/20/19 7:42 PM) Plt Morph) [facility]IbhxaycYVGETXWSUO4432-77-95 00:42:00 Test Item Value Reference Range Interpretation Comments Macrocyte (test code = 1+ *ABN*(02/20/19 7:42 Macrocyte) PM) [facility] NortheastJqeecykOJVAZHWDBH6714-40-88 00:42:00 Test Item Value Reference Range Interpretation Comments Polychrom (test code = Polychrom) [facility]CdirjpgDXVTNRGWEU4151-51-17 00:42:00 Test Item Value Reference Range Interpretation Comments Bands (test code = Bands) 1.0 <=11.0 [facility] NortheastFewmzwiIGCEYXKWOX4810-70-06 00:42:00 Test Item Value Reference Range Interpretation Comments Atypical Lymphs (test code = Atypical 0.0 Lymphs) [facility] NortheastKlpcdvsDDZSNOJLHQ1824-70-75 00:42:00 Test Item Value Reference Range Interpretation Comments RBC Morph (test code = See Note (02/20/19 7:42 RBC Morph) PM) [facility] NortheastKelfalvOJFZAFOWEX4052-86-81 00:42:00 Test Item Value Reference Range Interpretation Comments PTT (test code = PTT) 47.9 s 22.9-35.8 [facility]2019-06-09 00:42:00 Test Item Value Reference Range Interpretation Comments Procalcitonin Lvl (test 4.06 See_Comment [Au tomated message] code = Procalcitonin Lvl) e system which generated this result transmitted ref erence range: <=0.10. The reference range was not used to interpr et this result as normal/abnormal . [facility]2019-06-09 00:42:00 Test Item Value Reference Range Interpretation Comments Lactic Acid Lvl (test code = Lactic 2.0 0.5-2.2 Acid Lvl) [id number] 00:42:00 Test Item Value Reference Range Interpretation Comments Anisocyte (test code = 1+ *ABN*(02/20/19 7:42 Anisocyte) PM) [facility] NortheastMerquhkJODFVUNRWC1986-43-32 00:42:00 Test Item Value Reference Range Interpretation Comments Plt Morph (test code = Normal (02/20/19 7:42 PM) Plt Morph) [facility] NortheastYolenbbWKDHGPJMRQ3317-13-38 00:42:00 Test Item Value Reference Range Interpretation Comments Macrocyte (test code = 1+ *ABN*(02/20/19 7:42 Macrocyte) PM) [facility] NortheastMjbvqsrOAGBKDRLKZ4284-91-53 00:42:00 Test Item Value Reference Range Interpretation Comments Polychrom (test code = Polychrom) [facility] NortheastKaomfqvHCVHSANLPW7590-99-77 00:42:00 Test Item Value Reference Range Interpretation Comments Bands (test code = 1.0 See_Comment [Automat ed message] The Bands) system which ge nerated this result transmit dewayne reference range : <=11.0. The reference r andreia was not used to interpr et this result as dallin l/abnormal. [facility] NortheastBvzgzxbWFMTHCGBLG3168-75-13 00:42:00 Test Item Value Reference Range Interpretation Comments Atypical Lymphs (test code = Atypical 0.0 Lymphs) [facility] NortheastBwuqrlbJCKYLDRHDV1841-16-99 00:42:00 Test Item Value Reference Range Interpretation Comments RBC Morph (test code = See Note (02/20/19 7:42 RBC Morph) PM) [facility] NortheastUzezxldMBFIOBIHEU1138-64-54 00:42:00 Test Item Value Reference Range Interpretation Comments PTT (test code = PTT) 47.9 s 22.9-35.8 [facility]2019-06-09 00:42:00 Test Item Value Reference Range Interpretation Comments Procalcitonin Lvl (test 4.06 See_Comment [Au tomated message] code = Procalcitonin Lvl) Th e system which generated this result transmitted ref erence range: <=0.10. The reference range was not used to interpr et this result as normal/abnormal . [facility]2019-06-09 00:42:00 Test Item Value Reference Range Interpretation Comments Lactic Acid Lvl (test code = Lactic 2.0 0.5-2.2 Acid Lvl) [facility]ImegckpYEMAUKHOGR2450-79-51 00:42:00 Test Item Value Reference Range Interpretation Comments Anisocyte (test code = 1+ *ABN*(02/20/19 7:42 Anisocyte) PM) [facility] NortheastNirqxioSFPZQGDKVK8460-27-02 00:42:00 Test Item Value Reference Range Interpretation Comments Plt Morph (test code = Normal (02/20/19 7:42 PM) Plt Morph) [facility] NortheastMzamqwiCOPPMICXDP7329-89-61 00:42:00 Test Item Value Reference Range Interpretation Comments Macrocyte (test code = 1+ *ABN*(02/20/19 7:42 Macrocyte) PM) [facility] NortheastTuyaamgDVMRNOZTUP6516-10-79 00:42:00 Test Item Value Reference Range Interpretation Comments Polychrom (test code = Polychrom) [facility] NortheastXfqtszvOTNMMINLQR2732-21-23 00:42:00 Test Item Value Reference Range Interpretation Comments Bands (test code = 1.0 See_Comment [Automat ed message] The Bands) system which ge nerated this result transmit dewayne reference range : <=11.0. The reference r andreia was not used to interpr et this result as dallin l/abnormal. [facility] NortheastCbkimxdGWWGNOEMST8751-61-95 00:42:00 Test Item Value Reference Range Interpretation Comments Atypical Lymphs (test code = Atypical 0.0 Lymphs) [facility] NortheastXzydelvQBUZHBUXEK6359-66-54 00:42:00 Test Item Value Reference Range Interpretation Comments RBC Morph (test code = See Note (02/20/19 7:42 RBC Morph) PM) [facility] NortheastRbrtraiRUFWASYNWU3238-21-50 00:42:00 Test Item Value Reference Range Interpretation Comments PTT (test code = PTT) 47.9 s 22.9-35.8 [facility]2019-06-09 00:42:00 Test Item Value Reference Range Interpretation Comments Procalcitonin Lvl (test 4.06 See_Comment [Au tomated message] code = Procalcitonin Lvl) Th e system which generated this result transmitted ref erence range: <=0.10. The reference range was not used to interpr et this result as normal/abnormal . [facility]2019-06-09 00:42:00 Test Item Value Reference Range Interpretation Comments Lactic Acid Lvl (test code = Lactic 2.0 0.5-2.2 Acid Lvl) [facility] NortheastGqtrkviYVSWMCLUCE9170-18-20 00:42:00 Test Item Value Reference Range Interpretation Comments Anisocyte (test code = 1+ *ABN*(02/20/19 7:42 Anisocyte) PM) [facility] NortheastFxtjwfkQVSERFCNXO0909-91-80 00:42:00 Test Item Value Reference Range Interpretation Comments Plt Morph (test code = Normal (02/20/19 7:42 PM) Plt Morph) [facility] NortheastWfxymxtBVUTCGKLUF5204-59-01 00:42:00 Test Item Value Reference Range Interpretation Comments Macrocyte (test code = 1+ *ABN*(02/20/19 7:42 Macrocyte) PM) [facility] NortheastLydejhxCSOOGNHYMM3323-85-26 00:42:00 Test Item Value Reference Range Interpretation Comments Polychrom (test code = Polychrom) [facility] NortheastLkznhyiILHOQKABYI8206-47-87 00:42:00 Test Item Value Reference Range Interpretation Comments Bands (test code = 1.0 See_Comment [Automat ed message] The Bands) system which ge nerated this result transmit dewayne reference range : <=11.0. The reference r andreia was not used to interpr et this result as dallin l/abnormal. [facility] NortheastNrnyfcgBLMCZJZAXS8932-01-11 00:42:00 Test Item Value Reference Range Interpretation Comments Atypical Lymphs (test code = Atypical 0.0 Lymphs) [facility] NortheastOsjrxrhZJWNYYGWMY7631-03-87 00:42:00 Test Item Value Reference Range Interpretation Comments RBC Morph (test code = See Note (02/20/19 7:42 RBC Morph) PM) [facility] NortheastCjvfhhrYUXLCPICWZ5169-07-95 00:42:00 Test Item Value Reference Range Interpretation Comments PTT (test code = PTT) 47.9 s 22.9-35.8 [facility]2019-06-09 00:42:00 Test Item Value Reference Range Interpretation Comments Procalcitonin Lvl (test 4.06 See_Comment [Au tomated message] code = Procalcitonin Lvl) Th e system which generated this result transmitted ref erence range: <=0.10. The reference range was not used to interpr et this result as normal/abnormal . [facility]2019-06-09 00:42:00 Test Item Value Reference Range Interpretation Comments Lactic Acid Lvl (test code = Lactic 2.0 0.5-2.2 Acid Lvl) [facility] NortheastIsghsieYIARZLJGUA8123-27-68 00:42:00 Test Item Value Reference Range Interpretation Comments Anisocyte (test code = 1+ *ABN*(02/20/19 7:42 Anisocyte) PM) [facility] NortheastTajipieLIGSDYWMFE6262-85-80 00:42:00 Test Item Value Reference Range Interpretation Comments Plt Morph (test code = Normal (02/20/19 7:42 PM) Plt Morph) [facility] NortheastKmvptttJDDNNMIAME2576-69-86 00:42:00 Test Item Value Reference Range Interpretation Comments Macrocyte (test code = 1+ *ABN*(02/20/19 7:42 Macrocyte) PM) [facility] NortheastUwfbhqoMEYHXDMXDB2151-82-85 00:42:00 Test Item Value Reference Range Interpretation Comments Polychrom (test code = Polychrom) [facility] NortheastHrbsmfpZNTIRGXTGX7863-85-68 00:42:00 Test Item Value Reference Range Interpretation Comments Bands (test code = 1.0 See_Comment [Automat ed message] The Bands) system which ge nerated this result transmit dewayne reference range : <=11.0. The reference r andreia was not used to interpr et this result as dallin l/abnormal. [facility] NortheastQmvmwxhRHYLVWKPSQ1403-01-77 00:42:00 Test Item Value Reference Range Interpretation Comments Atypical Lymphs (test code = Atypical 0.0 Lymphs) [facility] NortheastYtjzrxeBTOBEYPUBB4983-52-22 00:42:00 Test Item Value Reference Range Interpretation Comments RBC Morph (test code = See Note (02/20/19 7:42 RBC Morph) PM) [facility] NortheastBqllvfgBXTKJXQIRM9958-07-68 00:42:00 Test Item Value Reference Range Interpretation Comments PTT (test code = PTT) 47.9 s 22.9-35.8 [facility]2019-06-09 00:42:00 Test Item Value Reference Range Interpretation Comments Procalcitonin Lvl (test 4.06 See_Comment [Au tomated message] code = Procalcitonin Lvl) Th e system which generated this result transmitted ref erence range: <=0.10. The reference range was not used to interpr et this result as normal/abnormal . [facility]2019-06-09 00:42:00 Test Item Value Reference Range Interpretation Comments Lactic Acid Lvl (test code = Lactic 2.0 0.5-2.2 Acid Lvl) [facility] NortheastDpyqounYSJCBCNEFM9002-14-58 00:42:00 Test Item Value Reference Range Interpretation Comments Anisocyte (test code = 1+ *ABN*(02/20/19 7:42 Anisocyte) PM) [facility] NortheastJltrsneDTQGWPAWAV8788-12-30 00:42:00 Test Item Value Reference Range Interpretation Comments Plt Morph (test code = Normal (02/20/19 7:42 PM) Plt Morph) [facility] NortheastPveqgcuURSUZXQYGW3026-91-20 00:42:00 Test Item Value Reference Range Interpretation Comments Macrocyte (test code = 1+ *ABN*(02/20/19 7:42 Macrocyte) PM) [facility] NortheastToyxyawXATJTTJEMJ4420-70-50 00:42:00 Test Item Value Reference Range Interpretation Comments Polychrom (test code = Polychrom) [facility] NortheastKuqlgovHTNBLZMTRH4285-31-79 00:42:00 Test Item Value Reference Range Interpretation Comments Bands (test code = 1.0 See_Comment [Automat ed message] The Bands) system which ge nerated this result transmit dewayne reference range : <=11.0. The reference r andreia was not used to interpr et this result as dallin l/abnormal. [facility] NortheastXphlavySKHIYQMIYX8076-33-83 00:42:00 Test Item Value Reference Range Interpretation Comments Atypical Lymphs (test code = Atypical 0.0 Lymphs) [facility] NortheastEjkutclOERFKPOKXF2189-86-41 00:42:00 Test Item Value Reference Range Interpretation Comments RBC Morph (test code = See Note (02/20/19 7:42 RBC Morph) PM) [facility] NortheastZgjxxrvRJXIAIIVKN5866-03-50 00:42:00 Test Item Value Reference Range Interpretation Comments PTT (test code = PTT) 47.9 s 22.9-35.8 [facility]2019-06-09 00:42:00 Test Item Value Reference Range Interpretation Comments Procalcitonin Lvl (test 4.06 See_Comment [Au tomated message] code = Procalcitonin Lvl) Th e system which generated this result transmitted ref erence range: <=0.10. The reference range was not used to interpr et this result as normal/abnormal . [id number] 00:42:00 Test Item Value Reference Range Interpretation Comments Lactic Acid Lvl (test code = Lactic 2.0 0.5-2.2 Acid Lvl) [facility] NortheastQvdcgsgMLPEOBJCVD3578-99-53 00:42:00 Test Item Value Reference Range Interpretation Comments Anisocyte (test code = 1+ *ABN*(02/20/19 7:42 Anisocyte) PM) [facility] NortheastSwyqvijKYCSAGNZQX6224-92-32 00:42:00 Test Item Value Reference Range Interpretation Comments Plt Morph (test code = Normal (02/20/19 7:42 PM) Plt Morph) [facility] NortheastStpexxiVYNZSFZJYK2259-74-03 00:42:00 Test Item Value Reference Range Interpretation Comments Macrocyte (test code = 1+ *ABN*(02/20/19 7:42 Macrocyte) PM) [facility] NortheastJgsayqlQQIKYTHJYE4110-74-17 00:42:00 Test Item Value Reference Range Interpretation Comments Polychrom (test code = Polychrom) [facility] NortheastDjweejuDEJASZVSFV6540-20-07 00:42:00 Test Item Value Reference Range Interpretation Comments Bands (test code = 1.0 See_Comment [Automat ed message] The Bands) system which ge nerated this result transmit dewayne reference range : <=11.0. The reference r andreia was not used to interpr et this result as dallin l/abnormal. [facility] NortheastKicaecaIEENXDXGTR0168-81-57 00:42:00 Test Item Value Reference Range Interpretation Comments Atypical Lymphs (test code = Atypical 0.0 Lymphs) [facility] NortheastEyushwlAETFFLXSDW9874-13-26 00:42:00 Test Item Value Reference Range Interpretation Comments RBC Morph (test code = See Note (02/20/19 7:42 RBC Morph) PM) [facility] NortheastKtlchgdXVXEPLYSRQ9061-31-88 00:42:00 Test Item Value Reference Range Interpretation Comments PTT (test code = PTT) 47.9 s 22.9-35.8 [facility]2019-06-09 00:42:00 Test Item Value Reference Range Interpretation Comments Procalcitonin Lvl (test 4.06 See_Comment [Au tomated message] code = Procalcitonin Lvl) Th e system which generated this result transmitted ref erence range: <=0.10. The reference range was not used to interpr et this result as normal/abnormal . [facility]2019-06-09 00:42:00 Test Item Value Reference Range Interpretation Comments Lactic Acid Lvl (test code = Lactic 2.0 0.5-2.2 Acid Lvl) [facility] NortheastNaijfduBACGDTODST1555-44-00 00:42:00 Test Item Value Reference Range Interpretation Comments Anisocyte (test code = 1+ *ABN*(02/20/19 7:42 Anisocyte) PM) [facility] NortheastZjwdpjkIJDFWWFQTS5766-41-45 00:42:00 Test Item Value Reference Range Interpretation Comments Plt Morph (test code = Normal (02/20/19 7:42 PM) Plt Morph) [facility] NortheastEytbutkZPFHASUKBC8009-57-54 00:42:00 Test Item Value Reference Range Interpretation Comments Macrocyte (test code = 1+ *ABN*(02/20/19 7:42 Macrocyte) PM) [facility] NortheastXssvuiwUIGDIPMCZZ4558-73-20 00:42:00 Test Item Value Reference Range Interpretation Comments Polychrom (test code = Polychrom) [facility] NortheastHabwaobIMWUVNLXDQ5747-42-97 00:42:00 Test Item Value Reference Range Interpretation Comments Bands (test code = 1.0 See_Comment [Automat ed message] The Bands) system which ge nerated this result transmit dweayne reference range : <=11.0. The reference r andreia was not used to interpr et this result as dallin l/abnormal. [facility] NortheastTogilxsOXXDKGYHEG8885-73-12 00:42:00 Test Item Value Reference Range Interpretation Comments Atypical Lymphs (test code = Atypical 0.0 Lymphs) [facility] NortheastJjcccfkECNFUMWDAQ9541-45-51 00:42:00 Test Item Value Reference Range Interpretation Comments RBC Morph (test code = See Note (02/20/19 7:42 RBC Morph) PM) [facility] NortheastHsmefatFLNBTWHVFE6455-45-53 00:42:00 Test Item Value Reference Range Interpretation Comments PTT (test code = PTT) 47.9 s 22.9-35.8 [facility]2019-06-09 00:42:00 Test Item Value Reference Range Interpretation Comments Procalcitonin Lvl (test 4.06 See_Comment [Au tomated message] code = Procalcitonin Lvl) Th e system which generated this result transmitted ref erence range: <=0.10. The reference range was not used to interpr et this result as normal/abnormal . [facility]2019-06-09 00:42:00 Test Item Value Reference Range Interpretation Comments Lactic Acid Lvl (test code = Lactic 2.0 0.5-2.2 Acid Lvl) [facility] NortheastJsufeqbKUKLJGIQYQ8451-21-65 00:42:00 Test Item Value Reference Range Interpretation Comments Anisocyte (test code = 1+ *ABN*(02/20/19 7:42 Anisocyte) PM) [facility] NortheastNnbveljDQMNCOZXLT5511-57-71 00:42:00 Test Item Value Reference Range Interpretation Comments Plt Morph (test code = Normal (02/20/19 7:42 PM) Plt Morph) [facility] NortheastAqhviqwOECYPDLNAC8564-72-68 00:42:00 Test Item Value Reference Range Interpretation Comments Macrocyte (test code = 1+ *ABN*(02/20/19 7:42 Macrocyte) PM) [facility] NortheastOiuexpqXUCRVGZHHA6669-56-10 00:42:00 Test Item Value Reference Range Interpretation Comments Polychrom (test code = Polychrom) [facility] NortheastVsmdrfaGOYMDITHLR0731-19-30 00:42:00 Test Item Value Reference Range Interpretation Comments Bands (test code = 1.0 See_Comment [Automat ed message] The Bands) system which ge nerated this result transmit dewayne reference range : <=11.0. The reference r andreia was not used to interpr et this result as dallin l/abnormal. [facility] NortheastWwayutpMNQASYOIQI8840-09-72 00:42:00 Test Item Value Reference Range Interpretation Comments Atypical Lymphs (test code = Atypical 0.0 Lymphs) [facility] NortheastXpagxbaSNSKLKSFGV0881-09-61 00:42:00 Test Item Value Reference Range Interpretation Comments RBC Morph (test code = See Note (02/20/19 7:42 RBC Morph) PM) [facility] NortheastQxprpavYCGKLLKAYA0195-55-40 00:42:00 Test Item Value Reference Range Interpretation Comments PTT (test code = PTT) 47.9 s 22.9-35.8 [facility]2019-06-09 00:42:00 Test Item Value Reference Range Interpretation Comments Procalcitonin Lvl (test 4.06 See_Comment [Au tomated message] code = Procalcitonin Lvl) Th e system which generated this result transmitted ref erence range: <=0.10. The reference range was not used to interpr et this result as normal/abnormal . [facility]2019-06-09 00:42:00 Test Item Value Reference Range Interpretation Comments Lactic Acid Lvl (test code = Lactic 2.0 0.5-2.2 Acid Lvl) [facility] NortheastHovqcxkAKHSRKANVI7282-57-87 00:42:00 Test Item Value Reference Range Interpretation Comments Anisocyte (test code = 1+ *ABN*(02/20/19 7:42 Anisocyte) PM) [facility] NortheastAyfjgneGKXHTYNRPT6215-42-41 00:42:00 Test Item Value Reference Range Interpretation Comments Plt Morph (test code = Normal (02/20/19 7:42 PM) Plt Morph) [facility] NortheastWlddqsdFWINAMJYNY1491-00-69 00:42:00 Test Item Value Reference Range Interpretation Comments Macrocyte (test code = 1+ *ABN*(02/20/19 7:42 Macrocyte) PM) [facility] NortheastYmbzemzAJGFCTXOKF3927-16-79 00:42:00 Test Item Value Reference Range Interpretation Comments Polychrom (test code = Polychrom) [facility] NortheastCbsjybbICQITFLFEX1856-30-37 00:42:00 Test Item Value Reference Range Interpretation Comments Bands (test code = 1.0 See_Comment [Automat ed message] The Bands) system which ge nerated this result transmit dewayne reference range : <=11.0. The reference r andreia was not used to interpr et this result as dallin l/abnormal. [facility] NortheastHmpqcpdOEMQXTTTRD4298-61-83 00:42:00 Test Item Value Reference Range Interpretation Comments Atypical Lymphs (test code = Atypical 0.0 Lymphs) [facility] NortheastLysvjipLOMDHWTOAD5837-56-25 00:42:00 Test Item Value Reference Range Interpretation Comments RBC Morph (test code = See Note (02/20/19 7:42 RBC Morph) PM) [facility] NortheastIwawzezLHIHCHIICU6860-39-89 00:42:00 Test Item Value Reference Range Interpretation Comments PTT (test code = PTT) 47.9 s 22.9-35.8 [facility]2019-06-09 00:42:00 Test Item Value Reference Range Interpretation Comments Procalcitonin Lvl (test 4.06 See_Comment [Au tomated message] code = Procalcitonin Lvl) Th e system which generated this result transmitted ref erence range: <=0.10. The reference range was not used to interpr et this result as normal/abnormal . [facility]2019-06-09 00:42:00 Test Item Value Reference Range Interpretation Comments Lactic Acid Lvl (test code = Lactic 2.0 0.5-2.2 Acid Lvl) [facility] NortheastLounoltYGKBLUMPCC7078-87-52 00:42:00 Test Item Value Reference Range Interpretation Comments Anisocyte (test code = 1+ *ABN*(02/20/19 7:42 Anisocyte) PM) [facility] NortheastJclrvkjHDZJWNPBQV3556-34-58 00:42:00 Test Item Value Reference Range Interpretation Comments Plt Morph (test code = Normal (02/20/19 7:42 PM) Plt Morph) [facility] NortheastLzsuwmmWVQOFTFMDT7334-51-81 00:42:00 Test Item Value Reference Range Interpretation Comments Macrocyte (test code = 1+ *ABN*(02/20/19 7:42 Macrocyte) PM) [facility] NortheastOxipfzdABOGZDTOIK6945-38-08 00:42:00 Test Item Value Reference Range Interpretation Comments Polychrom (test code = Polychrom) [facility] [facility]jfsjfmXBWCDGOVUB5805-90-42 00:42:00 Test Item Value Reference Range Interpretation Comments Bands (test code = 1.0 See_Comment [Automat ed message] The Bands) system which ge nerated this result transmit dewayne reference range : <=11.0. The reference r andreia was not used to interpr et this result as dallin l/abnormal. [facility]MjvupjrLDKWTMQOTZ0079-89-23 00:42:00 Test Item Value Reference Range Interpretation Comments Atypical Lymphs (test code = Atypical 0.0 Lymphs) [facility]ZkqnkefDNDBNNSLJG9157-28-16 00:42:00 Test Item Value Reference Range Interpretation Comments RBC Morph (test code = See Note (02/20/19 7:42 RBC Morph) PM) [facility]DiznklkSTJNCZEQCV3211-61-64 00:42:00 Test Item Value Reference Range Interpretation Comments PTT (test code = PTT) 47.9 s 22.9-35.8 [facility]2019-06-09 00:42:00 Test Item Value Reference Range Interpretation Comments Procalcitonin Lvl (test code = 4.06 <=0.10 Procalcitonin Lvl) [facility]2019-06-09 00:42:00 Test Item Value Reference Range Interpretation Comments Lactic Acid Lvl (test code = Lactic 2.0 0.5-2.2 Acid Lvl) [facility]LnirmqvUZVSJUJSOO8193-89-83 00:42:00 Test Item Value Reference Range Interpretation Comments Anisocyte (test code = 1+ *ABN*(02/20/19 7:42 Anisocyte) PM) [facility]SpvtflhVLMBEUKVHQ3925-94-43 00:42:00 Test Item Value Reference Range Interpretation Comments Plt Morph (test code = Normal (02/20/19 7:42 PM) Plt Morph) [facility]BykgeueJWGHIWHXJC4071-91-03 00:42:00 Test Item Value Reference Range Interpretation Comments Macrocyte (test code = 1+ *ABN*(02/20/19 7:42 Macrocyte) PM) [facility]KfiykiuDADJVLAOHV7250-84-11 00:42:00 Test Item Value Reference Range Interpretation Comments Polychrom (test code = Polychrom) [facility]KxdnilvEWHUJVJQER4245-56-07 00:42:00 Test Item Value Reference Range Interpretation Comments Bands (test code = Bands) 1.0 <=11.0 [facility]QjewrjuHRHLTZGNZD0337-99-47 00:42:00 Test Item Value Reference Range Interpretation Comments Atypical Lymphs (test code = Atypical 0.0 Lymphs) [facility]QkbxnfwITAXKQGAHX8960-32-58 00:42:00 Test Item Value Reference Range Interpretation Comments RBC Morph (test code = See Note (02/20/19 7:42 RBC Morph) PM) [facility]BelmzlbFWXVKMEKCG6350-91-48 00:42:00 Test Item Value Reference Range Interpretation Comments PTT (test code = PTT) 47.9 s 22.9-35.8 [facility]2019-06-09 00:42:00 Test Item Value Reference Range Interpretation Comments Procalcitonin Lvl (test 4.06 See_Comment [Au tomated message] code = Procalcitonin Lvl) Th e system which generated this result transmitted ref erence range: <=0.10. The reference range was not used to interpr et this result as normal/abnormal . [facility]2019-06-09 00:42:00 Test Item Value Reference Range Interpretation Comments Lactic Acid Lvl (test code = Lactic 2.0 0.5-2.2 Acid Lvl) [facility]EjbsnuiHSRXRVCZBC0263-24-18 00:42:00 Test Item Value Reference Range Interpretation Comments Anisocyte (test code = 1+ *ABN*(02/20/19 7:42 Anisocyte) PM) [facility]FfsbrajUQJHAMAGQQ3009-28-70 00:42:00 Test Item Value Reference Range Interpretation Comments Plt Morph (test code = Normal (02/20/19 7:42 PM) Plt Morph) [facility]TafhxzdARIJSQZGUL2002-19-64 00:42:00 Test Item Value Reference Range Interpretation Comments Macrocyte (test code = 1+ *ABN*(02/20/19 7:42 Macrocyte) PM) [facility]QkkryosYMGYZDWFJK3604-31-20 00:42:00 Test Item Value Reference Range Interpretation Comments Polychrom (test code = Polychrom) [facility]MwyuzygLEYVSHCXMW7414-51-94 00:42:00 Test Item Value Reference Range Interpretation Comments Bands (test code = 1.0 See_Comment [Automat ed message] The Bands) system which ge nerated this result transmit dewayne reference range : <=11.0. The reference r andreia was not used to interpr et this result as dallin l/abnormal. [facility]NotnsybXFGDYOZBCX8855-97-72 00:42:00 Test Item Value Reference Range Interpretation Comments Atypical Lymphs (test code = Atypical 0.0 Lymphs) [facility]PrlbktwAIBBXRQBDK2165-17-59 00:42:00 Test Item Value Reference Range Interpretation Comments RBC Morph (test code = See Note (02/20/19 7:42 RBC Morph) PM) [facility]UrstenpQCXXMFTCWU5044-44-24 00:42:00 Test Item Value Reference Range Interpretation Comments PTT (test code = PTT) 47.9 s 22.9-35.8 [facility]2019-06-09 00:42:00 Test Item Value Reference Range Interpretation Comments Procalcitonin Lvl (test 4.06 See_Comment [Au tomated message] code = Procalcitonin Lvl) Th e system which generated this result transmitted ref erence range: <=0.10. The reference range was not used to interpr et this result as normal/abnormal . [facility]2019-06-09 00:42:00 Test Item Value Reference Range Interpretation Comments Lactic Acid Lvl (test code = Lactic 2.0 0.5-2.2 Acid Lvl) [facility]PeoetybYPEPZNPPTD9179-38-31 00:42:00 Test Item Value Reference Range Interpretation Comments Anisocyte (test code = 1+ *ABN*(02/20/19 7:42 Anisocyte) PM) [facility]CqwrbzaSKFBCWHXOR8827-92-47 00:42:00 Test Item Value Reference Range Interpretation Comments Plt Morph (test code = Normal (02/20/19 7:42 PM) Plt Morph) [facility]WpnkpafIZEDUDHURV1796-52-31 00:42:00 Test Item Value Reference Range Interpretation Comments Macrocyte (test code = 1+ *ABN*(02/20/19 7:42 Macrocyte) PM) [facility]XiybtrnJBZFOAHVXD0445-58-21 00:42:00 Test Item Value Reference Range Interpretation Comments Polychrom (test code = Polychrom) [facility]CnjucifCCRDHQQAAG3962-53-62 00:42:00 Test Item Value Reference Range Interpretation Comments Bands (test code = 1.0 See_Comment [Automat ed message] The Bands) system which ge nerated this result transmit dewayne reference range : <=11.0. The reference r andreia was not used to interpr et this result as dallin l/abnormal. [facility] NortheastElagfxgEKNBTKRGLO1258-08-20 00:42:00 Test Item Value Reference Range Interpretation Comments Atypical Lymphs (test code = Atypical 0.0 Lymphs) [facility]TkepbgmMPYFXTXWIU9420-63-22 00:42:00 Test Item Value Reference Range Interpretation Comments RBC Morph (test code = See Note (02/20/19 7:42 RBC Morph) PM) [facility]XgyxnxaDGOSOPHLXG2936-96-08 00:42:00 Test Item Value Reference Range Interpretation Comments PTT (test code = PTT) 47.9 s 22.9-35.8 [facility]2019-06-09 00:42:00 Test Item Value Reference Range Interpretation Comments Procalcitonin Lvl (test 4.06 See_Comment [Au tomated message] code = Procalcitonin Lvl) Th e system which generated this result transmitted ref erence range: <=0.10. The reference range was not used to interpr et this result as normal/abnormal . [facility]2019-06-09 00:42:00 Test Item Value Reference Range Interpretation Comments Lactic Acid Lvl (test code = Lactic 2.0 0.5-2.2 Acid Lvl) [facility]JxmmrtkOPOXJESYPD6588-49-21 00:42:00 Test Item Value Reference Range Interpretation Comments Anisocyte (test code = 1+ *ABN*(02/20/19 7:42 Anisocyte) PM) [facility]SrgpttzWEMBTQVAFF3361-77-32 00:42:00 Test Item Value Reference Range Interpretation Comments Plt Morph (test code = Normal (02/20/19 7:42 PM) Plt Morph) [facility]OsmsmhqWJWHEHROEQ7625-57-76 00:42:00 Test Item Value Reference Range Interpretation Comments Macrocyte (test code = 1+ *ABN*(02/20/19 7:42 Macrocyte) PM) [facility]IpibwzwUBBJNEGXDG3383-71-70 00:42:00 Test Item Value Reference Range Interpretation Comments Polychrom (test code = Polychrom) [facility]QegfzsoKRHOPRJRZA5218-81-69 00:42:00 Test Item Value Reference Range Interpretation Comments Bands (test code = 1.0 See_Comment [Automat ed message] The Bands) system which ge nerated this result transmit dewayne reference range : <=11.0. The reference r andreia was not used to interpr et this result as dallin l/abnormal. [facility]OqopdsyMLQZXBRPMF2898-19-77 00:42:00 Test Item Value Reference Range Interpretation Comments Atypical Lymphs (test code = Atypical 0.0 Lymphs) [facility]BjbtaoeHYYOGBPXMJ4370-72-99 00:42:00 Test Item Value Reference Range Interpretation Comments RBC Morph (test code = See Note (02/20/19 7:42 RBC Morph) PM) [facility]YfyjjjuAUMCTSOOAG7305-67-92 00:42:00 Test Item Value Reference Range Interpretation Comments PTT (test code = PTT) 47.9 s 22.9-35.8 [facility]2019-06-09 00:42:00 Test Item Value Reference Range Interpretation Comments Procalcitonin Lvl (test 4.06 See_Comment [Au tomated message] code = Procalcitonin Lvl) Th e system which generated this result transmitted ref erence range: <=0.10. The reference range was not used to interpr et this result as normal/abnormal . [facility]2019-06-09 00:42:00 Test Item Value Reference Range Interpretation Comments Lactic Acid Lvl (test code = Lactic 2.0 0.5-2.2 Acid Lvl) [facility]FzzuzcgRSVEFNJMDU8385-09-08 00:42:00 Test Item Value Reference Range Interpretation Comments Anisocyte (test code = 1+ *ABN*(02/20/19 7:42 Anisocyte) PM) [facility]SfvthpjSINOYDMOBX8652-85-81 00:42:00 Test Item Value Reference Range Interpretation Comments Plt Morph (test code = Normal (02/20/19 7:42 PM) Plt Morph) [facility]VkfairrLMCVLWJJCQ9674-59-47 00:42:00 Test Item Value Reference Range Interpretation Comments Macrocyte (test code = 1+ *ABN*(02/20/19 7:42 Macrocyte) PM) [facility]LplpovdEAAGMNHVFA3623-65-94 00:42:00 Test Item Value Reference Range Interpretation Comments Polychrom (test code = Polychrom) [facility]MmwoqtoAGHTPOSVJY7906-43-10 00:42:00 Test Item Value Reference Range Interpretation Comments Bands (test code = 1.0 See_Comment [Automat ed message] The Bands) system which ge nerated this result transmit dewayne reference range : <=11.0. The reference r andreia was not used to interpr et this result as dallin l/abnormal. [facility]QnxpidlCXGZMKBBBU5489-76-15 00:42:00 Test Item Value Reference Range Interpretation Comments Atypical Lymphs (test code = Atypical 0.0 Lymphs) [facility]FqwjwzgDBVGUCIZEQ1585-15-92 00:42:00 Test Item Value Reference Range Interpretation Comments RBC Morph (test code = See Note (02/20/19 7:42 RBC Morph) PM) [facility]JrmxsorGBBQSGQVLR8321-71-95 00:42:00 Test Item Value Reference Range Interpretation Comments PTT (test code = PTT) 47.9 s 22.9-35.8 [facility]2019-06-09 00:42:00 Test Item Value Reference Range Interpretation Comments Procalcitonin Lvl (test 4.06 See_Comment [Au tomated message] code = Procalcitonin Lvl) e system which generated this result transmitted ref erence range: <=0.10. The reference range was not used to interpr et this result as normal/abnormal . [facility]2019-06-09 00:42:00 Test Item Value Reference Range Interpretation Comments Lactic Acid Lvl (test code = Lactic 2.0 0.5-2.2 Acid Lvl) [facility]TazrwzcXKSUDYUALX2619-20-06 00:42:00 Test Item Value Reference Range Interpretation Comments Anisocyte (test code = 1+ *ABN*(02/20/19 7:42 Anisocyte) PM) [facility]EnwvywrNSAPVQOWUQ7023-10-13 00:42:00 Test Item Value Reference Range Interpretation Comments Plt Morph (test code = Normal (02/20/19 7:42 PM) Plt Morph) [facility]JwyvfibXNLAGFIQRO5284-59-75 00:42:00 Test Item Value Reference Range Interpretation Comments Macrocyte (test code = 1+ *ABN*(02/20/19 7:42 Macrocyte) PM) [facility]WscifysGDMJCVTEXG2982-45-72 00:42:00 Test Item Value Reference Range Interpretation Comments Polychrom (test code = Polychrom) [facility]NdvomzwBCIPBHYUIG1724-33-74 00:42:00 Test Item Value Reference Range Interpretation Comments Bands (test code = 1.0 See_Comment [Automat ed message] The Bands) system which ge nerated this result transmit dewayne reference range : <=11.0. The reference r andreia was not used to interpr et this result as dallin l/abnormal. [facility] NortheastHitozeoYYXFEVESOK4621-52-27 00:42:00 Test Item Value Reference Range Interpretation Comments Atypical Lymphs (test code = Atypical 0.0 Lymphs) [facility]TqqystyLDUQKKYATL4869-16-26 00:42:00 Test Item Value Reference Range Interpretation Comments RBC Morph (test code = See Note (02/20/19 7:42 RBC Morph) PM) [facility]ErrflcbMHESULLLPB1402-08-13 00:42:00 Test Item Value Reference Range Interpretation Comments PTT (test code = PTT) 47.9 s 22.9-35.8 [facility]2019-06-09 00:42:00 Test Item Value Reference Range Interpretation Comments Procalcitonin Lvl (test 4.06 See_Comment [Au tomated message] code = Procalcitonin Lvl) Th e system which generated this result transmitted ref erence range: <=0.10. The reference range was not used to interpr et this result as normal/abnormal . [facility]2019-06-09 00:42:00 Test Item Value Reference Range Interpretation Comments Lactic Acid Lvl (test code = Lactic 2.0 0.5-2.2 Acid Lvl) [facility]GihusnmFSNTYKIJEE1093-54-12 00:42:00 Test Item Value Reference Range Interpretation Comments Anisocyte (test code = 1+ *ABN*(02/20/19 7:42 Anisocyte) PM) [facility]WjebseiCLYENRDPQM0485-20-89 00:42:00 Test Item Value Reference Range Interpretation Comments Plt Morph (test code = Normal (02/20/19 7:42 PM) Plt Morph) [facility]LlkfuydYNRXRLZNCC1457-16-14 00:42:00 Test Item Value Reference Range Interpretation Comments Macrocyte (test code = 1+ *ABN*(02/20/19 7:42 Macrocyte) PM) [facility]DfscjbhRTFEDTBCYZ4327-97-00 00:42:00 Test Item Value Reference Range Interpretation Comments Polychrom (test code = Polychrom) [facility]KipkplhNDMHJKSJOU2568-10-73 00:42:00 Test Item Value Reference Range Interpretation Comments Bands (test code = 1.0 See_Comment [Automat ed message] The Bands) system which ge nerated this result transmit dewayne reference range : <=11.0. The reference r andreia was not used to interpr et this result as dallin l/abnormal. [facility] NortheastDoukijqBNNYWTDIKZ0055-32-59 00:42:00 Test Item Value Reference Range Interpretation Comments Atypical Lymphs (test code = Atypical 0.0 Lymphs) [facility] NortheastLggredzLRHIPGROFL5545-71-40 00:42:00 Test Item Value Reference Range Interpretation Comments RBC Morph (test code = See Note (02/20/19 7:42 RBC Morph) PM) [facility] NortheastLulvlsqTOYONYPFEH3522-74-55 00:42:00 Test Item Value Reference Range Interpretation Comments PTT (test code = PTT) 47.9 s 22.9-35.8 [facility]2019-06-09 00:42:00 Test Item Value Reference Range Interpretation Comments Procalcitonin Lvl (test 4.06 See_Comment [Au tomated message] code = Procalcitonin Lvl) Th e system which generated this result transmitted ref erence range: <=0.10. The reference range was not used to interpr et this result as normal/abnormal . [facility]2019-06-09 00:42:00 Test Item Value Reference Range Interpretation Comments Lactic Acid Lvl (test code = Lactic 2.0 0.5-2.2 Acid Lvl) [facility] NortheastZmesktvKOZOBJHJVI0765-81-57 00:42:00 Test Item Value Reference Range Interpretation Comments Anisocyte (test code = 1+ *ABN*(02/20/19 7:42 Anisocyte) PM) [facility] NortheastBhatfnzOQVEPDQOOI3843-15-31 00:42:00 Test Item Value Reference Range Interpretation Comments Plt Morph (test code = Normal (02/20/19 7:42 PM) Plt Morph) [facility]HiqvkhkDHSPPFLOAO1902-51-55 00:42:00 Test Item Value Reference Range Interpretation Comments Macrocyte (test code = 1+ *ABN*(02/20/19 7:42 Macrocyte) PM) [facility]ScdvdcuMXALICUJRD9452-60-11 00:42:00 Test Item Value Reference Range Interpretation Comments Polychrom (test code = Polychrom) [facility]IvucmdfPOJOEWLVHT7211-76-79 00:42:00 Test Item Value Reference Range Interpretation Comments Bands (test code = 1.0 See_Comment [Automat ed message] The Bands) system which ge nerated this result transmit dewayne reference range : <=11.0. The reference r andreia was not used to interpr et this result as dallin l/abnormal. [facility] NortheastSofrqvgPEBUDCFLPJ6149-70-66 00:42:00 Test Item Value Reference Range Interpretation Comments Atypical Lymphs (test code = Atypical 0.0 Lymphs) [facility] NortheastFhmymlpMCLVNDMXFP1374-93-52 00:42:00 Test Item Value Reference Range Interpretation Comments RBC Morph (test code = See Note (02/20/19 7:42 RBC Morph) PM) [facility] NortheastTxqbcjcBZLAQCHWIC8741-16-44 00:42:00 Test Item Value Reference Range Interpretation Comments PTT (test code = PTT) 47.9 s 22.9-35.8 [facility]2019-06-09 00:42:00 Test Item Value Reference Range Interpretation Comments Procalcitonin Lvl (test 4.06 See_Comment [Au tomated message] code = Procalcitonin Lvl) Th e system which generated this result transmitted ref erence range: <=0.10. The reference range was not used to interpr et this result as normal/abnormal . [facility]2019-06-09 00:42:00 Test Item Value Reference Range Interpretation Comments Lactic Acid Lvl (test code = Lactic 2.0 0.5-2.2 Acid Lvl) [facility]AbmsxxlRHYQFKNOLG8631-26-12 00:42:00 Test Item Value Reference Range Interpretation Comments Anisocyte (test code = 1+ *ABN*(02/20/19 7:42 Anisocyte) PM) [facility]IaqrgohGMZLGZFEQQ7379-46-53 00:42:00 Test Item Value Reference Range Interpretation Comments Plt Morph (test code = Normal (02/20/19 7:42 PM) Plt Morph) [facility]VsxdozjACNDJVTHGR5025-93-25 00:42:00 Test Item Value Reference Range Interpretation Comments Macrocyte (test code = 1+ *ABN*(02/20/19 7:42 Macrocyte) PM) [facility]ExhiwdcDLWAUNGQIX4634-50-43 00:42:00 Test Item Value Reference Range Interpretation Comments Polychrom (test code = Polychrom) [facility] NortheastCjjioicIOWMYGDKUH2485-04-91 00:42:00 Test Item Value Reference Range Interpretation Comments Bands (test code = 1.0 See_Comment [Automat ed message] The Bands) system which ge nerated this result transmit dewayne reference range : <=11.0. The reference r andreia was not used to interpr et this result as dallin l/abnormal. [facility] NortheastGwrfwmaNKTTXFHDGB2118-37-25 00:42:00 Test Item Value Reference Range Interpretation Comments Atypical Lymphs (test code = Atypical 0.0 Lymphs) [facility]QnnddiaFOANFZFBTK1738-02-26 00:42:00 Test Item Value Reference Range Interpretation Comments RBC Morph (test code = See Note (02/20/19 7:42 RBC Morph) PM) [facility] NortheastWfhnyjyEXPFAZJEWD4469-12-69 00:42:00 Test Item Value Reference Range Interpretation Comments PTT (test code = PTT) 47.9 s 22.9-35.8 [facility]2019-06-09 00:42:00 Test Item Value Reference Range Interpretation Comments Procalcitonin Lvl (test 4.06 See_Comment [Au tomated message] code = Procalcitonin Lvl) Th e system which generated this result transmitted ref erence range: <=0.10. The reference range was not used to interpr et this result as normal/abnormal . [facility]2019-06-09 00:42:00 Test Item Value Reference Range Interpretation Comments Lactic Acid Lvl (test code = Lactic 2.0 0.5-2.2 Acid Lvl) [facility] NortheastKoedsenYNGZOHGYLA4479-45-35 00:42:00 Test Item Value Reference Range Interpretation Comments Anisocyte (test code = 1+ *ABN*(02/20/19 7:42 Anisocyte) PM) [facility]RoawtcxYJXVFHXOUE0819-24-24 00:42:00 Test Item Value Reference Range Interpretation Comments Plt Morph (test code = Normal (02/20/19 7:42 PM) Plt Morph) [facility] NortheastUuqufuaMHMPXUVHXH6093-31-84 00:42:00 Test Item Value Reference Range Interpretation Comments Macrocyte (test code = 1+ *ABN*(02/20/19 7:42 Macrocyte) PM) [facility]IxfjylfCCIGYBEGQZ0534-93-67 00:42:00 Test Item Value Reference Range Interpretation Comments Polychrom (test code = Polychrom) [facility]XyrjgrdONILCRCDBD6237-31-08 00:42:00 Test Item Value Reference Range Interpretation Comments Bands (test code = 1.0 See_Comment [Automat ed message] The Bands) system which ge nerated this result transmit dewayne reference range : <=11.0. The reference r andreia was not used to interpr et this result as dallin l/abnormal. [facility] NortheastNlpxrniHLYKHGWGNV4342-93-29 00:42:00 Test Item Value Reference Range Interpretation Comments Atypical Lymphs (test code = Atypical 0.0 Lymphs) [facility] NortheastTolpjfcKMXNRSRXXP2650-14-16 00:42:00 Test Item Value Reference Range Interpretation Comments RBC Morph (test code = See Note (02/20/19 7:42 RBC Morph) PM) [facility]SdjqxetUMAQRRUFLA7550-96-03 00:42:00 Test Item Value Reference Range Interpretation Comments PTT (test code = PTT) 47.9 s 22.9-35.8 [facility]2019-06-09 00:42:00 Test Item Value Reference Range Interpretation Comments Procalcitonin Lvl (test 4.06 See_Comment [Au tomated message] code = Procalcitonin Lvl) Th e system which generated this result transmitted ref erence range: <=0.10. The reference range was not used to interpr et this result as normal/abnormal . [facility]2019-06-09 00:42:00 Test Item Value Reference Range Interpretation Comments Lactic Acid Lvl (test code = Lactic 2.0 0.5-2.2 Acid Lvl) [facility]OsvvefzPAODCRQCGI4946-96-03 00:42:00 Test Item Value Reference Range Interpretation Comments Anisocyte (test code = 1+ *ABN*(02/20/19 7:42 Anisocyte) PM) [facility]CqjeufvXRYDSLPLWA0064-84-14 00:42:00 Test Item Value Reference Range Interpretation Comments Plt Morph (test code = Normal (02/20/19 7:42 PM) Plt Morph) [facility] NortheastTbryudwVDRUCHUYFN1781-51-54 00:42:00 Test Item Value Reference Range Interpretation Comments Macrocyte (test code = 1+ *ABN*(02/20/19 7:42 Macrocyte) PM) [facility] NortheastXvtsqrzGOSNHNTWLB3613-99-38 00:42:00 Test Item Value Reference Range Interpretation Comments Polychrom (test code = Polychrom) [facility] NortheastAjkvlhmGTHWZNTGGW9074-66-65 00:42:00 Test Item Value Reference Range Interpretation Comments Bands (test code = 1.0 See_Comment [Automat ed message] The Bands) system which ge nerated this result transmit dewayne reference range : <=11.0. The reference r andreia was not used to interpr et this result as dallin l/abnormal. [facility] NortheastFjmgtbmBRKPPANXMY9264-01-38 00:42:00 Test Item Value Reference Range Interpretation Comments Atypical Lymphs (test code = Atypical 0.0 Lymphs) [facility]CshqyzxFVQBMFDADM6767-28-63 00:42:00 Test Item Value Reference Range Interpretation Comments RBC Morph (test code = See Note (02/20/19 7:42 RBC Morph) PM) [facility] NortheastJozlburDLWMGGUEXM7778-67-51 00:42:00 Test Item Value Reference Range Interpretation Comments PTT (test code = PTT) 47.9 s 22.9-35.8 [facility]2019-06-09 00:42:00 Test Item Value Reference Range Interpretation Comments Procalcitonin Lvl (test 4.06 See_Comment [Au tomated message] code = Procalcitonin Lvl) Th e system which generated this result transmitted ref erence range: <=0.10. The reference range was not used to interpr et this result as normal/abnormal . [facility]2019-06-09 00:42:00 Test Item Value Reference Range Interpretation Comments Lactic Acid Lvl (test code = Lactic 2.0 0.5-2.2 Acid Lvl) [facility] NortheastMsthxteHKUZZBOAGX7430-13-66 00:42:00 Test Item Value Reference Range Interpretation Comments Anisocyte (test code = 1+ *ABN*(02/20/19 7:42 Anisocyte) PM) [facility]zqhitxQGXDYGRKIP4710-23-05 00:42:00 Test Item Value Reference Range Interpretation Comments Plt Morph (test code = Normal (02/20/19 7:42 PM) Plt Morph) [facility]SijarxqKYTSJPFALY1422-47-61 00:42:00 Test Item Value Reference Range Interpretation Comments Macrocyte (test code = 1+ *ABN*(02/20/19 7:42 Macrocyte) PM) [facility]PfpxuvrWLNADNLCWH8351-48-97 00:42:00 Test Item Value Reference Range Interpretation Comments Polychrom (test code = Polychrom) [facility]SntmokuSUFHSLBQUO0343-89-65 00:42:00 Test Item Value Reference Range Interpretation Comments Bands (test code = 1.0 See_Comment [Automat ed message] The Bands) system which ge nerated this result transmit dewayne reference range : <=11.0. The reference r andreia was not used to interpr et this result as dallin l/abnormal. [facility]UeeytpyNBOTPFBYUP4535-57-36 00:42:00 Test Item Value Reference Range Interpretation Comments Atypical Lymphs (test code = Atypical 0.0 Lymphs) [facility]KtfbwwiONJBMHDTEU3729-83-09 00:42:00 Test Item Value Reference Range Interpretation Comments RBC Morph (test code = See Note (02/20/19 7:42 RBC Morph) PM) [facility]GwoznrcIIISLYRHLG9881-66-65 00:42:00 Test Item Value Reference Range Interpretation Comments PTT (test code = PTT) 47.9 s 22.9-35.8 [facility]2019-06-09 00:42:00 Test Item Value Reference Range Interpretation Comments Procalcitonin Lvl (test 4.06 See_Comment [Au tomated message] code = Procalcitonin Lvl) Th e system which generated this result transmitted ref erence range: <=0.10. The reference range was not used to interpr et this result as normal/abnormal . [facility]2019-06-09 00:42:00 Test Item Value Reference Range Interpretation Comments Lactic Acid Lvl (test code = Lactic 2.0 0.5-2.2 Acid Lvl) [facility]SldggqdLVUPBCDXAH5211-58-11 00:42:00 Test Item Value Reference Range Interpretation Comments Anisocyte (test code = 1+ *ABN*(02/20/19 7:42 Anisocyte) PM) [facility]JztfscuURIJWGCGFF4889-34-59 00:42:00 Test Item Value Reference Range Interpretation Comments Plt Morph (test code = Normal (02/20/19 7:42 PM) Plt Morph) [facility]QheqknkEBREWFKIWN5633-62-77 00:42:00 Test Item Value Reference Range Interpretation Comments Macrocyte (test code = 1+ *ABN*(02/20/19 7:42 Macrocyte) PM) [facility] NortheastButihyeRKPEYBWVRG4868-37-32 00:42:00 Test Item Value Reference Range Interpretation Comments Polychrom (test code = Polychrom) [facility]EukbtvsRMYGATPTHS6400-69-36 00:42:00 Test Item Value Reference Range Interpretation Comments Bands (test code = 1.0 See_Comment [Automat ed message] The Bands) system which ge nerated this result transmit dewayne reference range : <=11.0. The reference r andreia was not used to interpr et this result as dallin l/abnormal. [facility]SisyvkxESUTAZLBBQ7887-07-92 00:42:00 Test Item Value Reference Range Interpretation Comments Atypical Lymphs (test code = Atypical 0.0 Lymphs) [facility]EmpdkqyVPFLSLPIJF5511-01-52 00:42:00 Test Item Value Reference Range Interpretation Comments RBC Morph (test code = See Note (02/20/19 7:42 RBC Morph) PM) [facility]RxbxxoeWJXPBMCTFN2959-63-90 00:42:00 Test Item Value Reference Range Interpretation Comments PTT (test code = PTT) 47.9 s 22.9-35.8 [facility]2019-06-09 00:42:00 Test Item Value Reference Range Interpretation Comments Procalcitonin Lvl (test 4.06 See_Comment [Au tomated message] code = Procalcitonin Lvl) Th e system which generated this result transmitted ref erence range: <=0.10. The reference range was not used to interpr et this result as normal/abnormal . [facility]2019-06-09 00:42:00 Test Item Value Reference Range Interpretation Comments Lactic Acid Lvl (test code = Lactic 2.0 0.5-2.2 Acid Lvl) [facility]DgjvwbhRZFJRAZLEJ6347-46-13 00:42:00 Test Item Value Reference Range Interpretation Comments Anisocyte (test code = 1+ *ABN*(02/20/19 7:42 Anisocyte) PM) [facility]TltpezmEPLKEXWQWM6832-76-32 00:42:00 Test Item Value Reference Range Interpretation Comments Plt Morph (test code = Normal (02/20/19 7:42 PM) Plt Morph) [facility]SyffrjqQSSMSJZYWP5706-02-63 00:42:00 Test Item Value Reference Range Interpretation Comments Macrocyte (test code = 1+ *ABN*(02/20/19 7:42 Macrocyte) PM) [facility] NortheastVrzrywkCBZRJNACLF8203-86-42 00:42:00 Test Item Value Reference Range Interpretation Comments Polychrom (test code = Polychrom) [facility] NortheastGotcbobTOLSLAGJLA9349-62-38 00:42:00 Test Item Value Reference Range Interpretation Comments Bands (test code = 1.0 See_Comment [Automat ed message] The Bands) system which ge nerated this result transmit dewayne reference range : <=11.0. The reference r andreia was not used to interpr et this result as dallin l/abnormal. [facility] NortheastQecfymlJGLQIUIVPH5426-82-13 00:42:00 Test Item Value Reference Range Interpretation Comments Atypical Lymphs (test code = Atypical 0.0 Lymphs) [facility]RrckzdqBIBSPGPTHD2351-05-80 00:42:00 Test Item Value Reference Range Interpretation Comments RBC Morph (test code = See Note (02/20/19 7:42 RBC Morph) PM) [facility]OyhpgioSKPFOVVHGJ7511-07-14 00:42:00 Test Item Value Reference Range Interpretation Comments PTT (test code = PTT) 47.9 s 22.9-35.8 [facility]2019-06-09 00:42:00 Test Item Value Reference Range Interpretation Comments Procalcitonin Lvl (test 4.06 See_Comment [Au tomated message] code = Procalcitonin Lvl) e system which generated this result transmitted ref erence range: <=0.10. The reference range was not used to interpr et this result as normal/abnormal . [facility]2019-06-09 00:42:00 Test Item Value Reference Range Interpretation Comments Lactic Acid Lvl (test code = Lactic 2.0 0.5-2.2 Acid Lvl) [facility]TuagbwwLBHHDASAAN7018-78-40 00:42:00 Test Item Value Reference Range Interpretation Comments Anisocyte (test code = 1+ *ABN*(02/20/19 7:42 Anisocyte) PM) [facility]JqtniafPPGGMUWSKF0283-45-24 00:42:00 Test Item Value Reference Range Interpretation Comments Plt Morph (test code = Normal (02/20/19 7:42 PM) Plt Morph) [facility]JniyaxeCPAEUKUQWB4576-77-22 00:42:00 Test Item Value Reference Range Interpretation Comments Macrocyte (test code = 1+ *ABN*(02/20/19 7:42 Macrocyte) PM) [facility] NortheastRhomyidMCNFGUBRUQ5442-35-29 00:42:00 Test Item Value Reference Range Interpretation Comments Polychrom (test code = Polychrom) [facility] NortheastIcjpcpoZDYQGHJOFL2556-42-16 00:42:00 Test Item Value Reference Range Interpretation Comments Bands (test code = 1.0 See_Comment [Automat ed message] The Bands) system which ge nerated this result transmit dewayne reference range : <=11.0. The reference r andreia was not used to interpr et this result as dallin l/abnormal. [facility] NortheastLkanznjZBBUQXVOMC8704-92-20 00:42:00 Test Item Value Reference Range Interpretation Comments Atypical Lymphs (test code = Atypical 0.0 Lymphs) [facility]HnuejcjKYHFQOPMTV0841-76-61 00:42:00 Test Item Value Reference Range Interpretation Comments RBC Morph (test code = See Note (02/20/19 7:42 RBC Morph) PM) [facility]AjgdmbxKAWBZWUSQL7797-40-88 00:42:00 Test Item Value Reference Range Interpretation Comments PTT (test code = PTT) 47.9 s 22.9-35.8 [facility]2019-06-09 00:42:00 Test Item Value Reference Range Interpretation Comments Procalcitonin Lvl (test 4.06 See_Comment [Au tomated message] code = Procalcitonin Lvl) Th e system which generated this result transmitted ref erence range: <=0.10. The reference range was not used to interpr et this result as normal/abnormal . [facility]2019-06-09 00:42:00 Test Item Value Reference Range Interpretation Comments Lactic Acid Lvl (test code = Lactic 2.0 0.5-2.2 Acid Lvl) [facility]LtzdvjgFEHVWMENGF5162-14-81 00:42:00 Test Item Value Reference Range Interpretation Comments Anisocyte (test code = 1+ *ABN*(02/20/19 7:42 Anisocyte) PM) [facility] NortheastHyjaexyNXKXQMCXDR8154-27-14 00:42:00 Test Item Value Reference Range Interpretation Comments Plt Morph (test code = Normal (02/20/19 7:42 PM) Plt Morph) [facility]EknnmygYZTCJBKCCL2649-67-85 00:42:00 Test Item Value Reference Range Interpretation Comments Macrocyte (test code = 1+ *ABN*(02/20/19 7:42 Macrocyte) PM) [facility]JdrdgqcFTGQWYXMBH6218-32-53 00:42:00 Test Item Value Reference Range Interpretation Comments Polychrom (test code = Polychrom) [facility] NortheastYyrmyjgHHRTPLSLPJ3483-36-43 00:42:00 Test Item Value Reference Range Interpretation Comments Bands (test code = 1.0 See_Comment [Automat ed message] The [employer]) system which ge nerated this result transmit dewayne reference range : <=11.0. The reference r andreia was not used to interpr et this result as dallin l/abnormal. [facility]EssaoclUDQCMLTPRN0184-35-59 00:42:00 Test Item Value Reference Range Interpretation Comments Atypical Lymphs (test code = Atypical 0.0 Lymphs) [facility] NortheastBifyqemOZDDYSFHTT1772-28-78 00:42:00 Test Item Value Reference Range Interpretation Comments RBC Morph (test code = See Note (02/20/19 7:42 RBC Morph) PM) [facility]TcpgkvmXTSLGCBZDL4381-93-71 00:42:00 Test Item Value Reference Range Interpretation Comments PTT (test code = PTT) 47.9 s 22.9-35.8 [facility] W/AUTO [id number] 13:07:00 Test Item Value Reference Range Interpretation [...] = NO DIFF/SCN CRITERIA MDIFF) BASIC METABOLIC ASYIN3740-27-08 12:31:00 Test Item Value Reference Range Interpretation [...] code = CA) 8.5 MG/DL 8.5-10.1 N CENSDAKNOB8452-23-73 07:17:42 Test Item Value Reference Range Interpretation Comments INR (test code = INR) 1.74 0.85-1.17 [facility] HospitalRolafadCDSTGOZZFJ8343-82-67 07:17:42 Test Item Value Reference Range Interpretation Comments PROTIME (test code = PROTIME) 20.1 s 12.0-14.7 [facility] NortheastGlbrwwvJRGTMAKVLI4490-15-47 07:17:42 Test Item Value Reference Range Interpretation Comments INR (test code = INR) 1.74 0.85-1.17 [facility] HospitalFkihpqxCWIJRRIBOT8889-03-81 07:17:42 Test Item Value Reference Range Interpretation Comments PROTIME (test code = PROTIME) 20.1 s 12.0-14.7 [facility]DnvznrqPDOCRQEOEB5042-75-03 07:17:42 Test Item Value Reference Range Interpretation Comments INR (test code = INR) 1.74 0.85-1.17 [facility] NortheastMiqulnfAKKUCJHBRU3241-25-02 07:17:42 Test Item Value Reference Range Interpretation Comments PROTIME (test code = PROTIME) 20.1 s 12.0-14.7 [facility] NortheastMtnrfotHJAZNZTSRG1516-39-78 07:17:42 Test Item Value Reference Range Interpretation Comments INR (test code = INR) 1.74 0.85-1.17 H [facility] NortheastTffdxcnYJHPCFPJOS5252-78-29 07:17:42 Test Item Value Reference Range Interpretation Comments PROTIME (test code = PROTIME) 20.1 s 12.0-14.7 [facility] NortheastHhluphuFMXESKGUNR2241-54-10 07:17:42 Test Item Value Reference Range Interpretation Comments INR (test code = INR) 1.74 0.85-1.17 [facility] NortheastKerpsioLJBTAQBATQ9180-31-73 07:17:42 Test Item Value Reference Range Interpretation Comments PROTIME (test code = PROTIME) 20.1 s 12.0-14.7 [facility] NortheastUbedlhjZBDRGFRXXP4827-21-84 07:17:42 Test Item Value Reference Range Interpretation Comments INR (test code = INR) 1.74 0.85-1.17 H [facility] NortheastJdnpknyYCXHHBSOER8254-00-93 07:17:42 Test Item Value Reference Range Interpretation Comments PROTIME (test code = PROTIME) 20.1 s 12.0-14.7 [facility] NortheastEuzbqooUMFPTJWIXO3081-83-86 07:17:42 Test Item Value Reference Range Interpretation Comments INR (test code = INR) 1.74 0.85-1.17 H [facility] NortheastFarijzbOJHRPDTEUK0351-77-58 07:17:42 Test Item Value Reference Range Interpretation Comments PROTIME (test code = PROTIME) 20.1 s 12.0-14.7 [facility] NortheastHckppwlRADJQUXYFI5122-78-99 07:17:42 Test Item Value Reference Range Interpretation Comments INR (test code = INR) 1.74 0.85-1.17 H [facility]SgjifzqXRSJDSPPBY0018-55-24 07:17:42 Test Item Value Reference Range Interpretation Comments PROTIME (test code = PROTIME) 20.1 s 12.0-14.7 [facility] NortheastKobyqguRXOIZOIKIY8831-48-87 07:17:42 Test Item Value Reference Range Interpretation Comments INR (test code = INR) 1.74 0.85-1.17 [facility] NortheastBchknvzAVEWEPDPGR4567-71-39 07:17:42 Test Item Value Reference Range Interpretation Comments PROTIME (test code = PROTIME) 20.1 s 12.0-14.7 [facility] NortheastBlpumyoZTKRLRZKWA1156-26-22 07:17:42 Test Item Value Reference Range Interpretation Comments INR (test code = INR) 1.74 0.85-1.17 [facility] NortheastEqccvkkSCIZQTOTEB0557-77-08 07:17:42 Test Item Value Reference Range Interpretation Comments PROTIME (test code = PROTIME) 20.1 s 12.0-14.7 [facility] NortheastHlkyxuhFTTDYEEPNX9179-18-13 07:17:42 Test Item Value Reference Range Interpretation Comments INR (test code = INR) 1.74 0.85-1.17 [facility] NortheastAmcksotBCEWDIDDMK0276-18-10 07:17:42 Test Item Value Reference Range Interpretation Comments PROTIME (test code = PROTIME) 20.1 s 12.0-14.7 [facility] NortheastJyxhqydULPXBAGQFX3858-08-02 07:17:42 Test Item Value Reference Range Interpretation Comments INR (test code = INR) 1.74 0.85-1.17 [facility] NortheastUbzptoeRYSZNSQYHQ7153-05-19 07:17:42 Test Item Value Reference Range Interpretation Comments PROTIME (test code = PROTIME) 20.1 s 12.0-14.7 [facility] NortheastEqcabgvHUZSSOOBAP9294-55-91 07:17:42 Test Item Value Reference Range Interpretation Comments INR (test code = INR) 1.74 0.85-1.17 [facility] NortheastCmccsnqKQGTPXRAZD5677-54-64 07:17:42 Test Item Value Reference Range Interpretation Comments PROTIME (test code = PROTIME) 20.1 s 12.0-14.7 [facility] NortheastFmtcsueSJEQWKKQZY1522-93-47 07:17:42 Test Item Value Reference Range Interpretation Comments INR (test code = INR) 1.74 0.85-1.17 [facility] NortheastXhsmzzqNQPKYYNZNT0234-00-55 07:17:42 Test Item Value Reference Range Interpretation Comments PROTIME (test code = PROTIME) 20.1 s 12.0-14.7 [facility] NortheastJmpjartAGWONJQGJG4667-50-43 07:17:42 Test Item Value Reference Range Interpretation Comments INR (test code = INR) 1.74 0.85-1.17 [facility] NortheastTjqpgdgYLNIGWMZRN8796-78-64 07:17:42 Test Item Value Reference Range Interpretation Comments PROTIME (test code = PROTIME) 20.1 s 12.0-14.7 H [place] [address]-02-03 07:17:42 Test Item Value Reference Range Interpretation Comments INR (test code = INR) 1.74 0.85-1.17 [facility] NortheastLpykhhnSWUPMIUEMQ2059-54-56 07:17:42 Test Item Value Reference Range Interpretation Comments PROTIME (test code = PROTIME) 20.1 s 12.0-14.7 [facility] NortheastFiwoyqiLXSTKMAEIH6637-28-82 07:17:42 Test Item Value Reference Range Interpretation Comments INR (test code = INR) 1.74 0.85-1.17 [facility] NortheastTxkopdhQZGFKURWSK0950-80-84 07:17:42 Test Item Value Reference Range Interpretation Comments PROTIME (test code = PROTIME) 20.1 s 12.0-14.7 [facility] NortheastGjwfivlNPLEMGWUMO7304-75-09 07:17:42 Test Item Value Reference Range Interpretation Comments INR (test code = INR) 1.74 0.85-1.17 [facility] NortheastWwrerclARCMJOBEFY4675-90-98 07:17:42 Test Item Value Reference Range Interpretation Comments PROTIME (test code = PROTIME) 20.1 s 12.0-14.7 [facility] NortheastAumxzloGXXZBFJVGK3549-72-13 07:17:42 Test Item Value Reference Range Interpretation Comments INR (test code = INR) 1.74 0.85-1.17 [facility] NortheastMwypkfrUVEAORCACC4608-44-49 07:17:42 Test Item Value Reference Range Interpretation Comments PROTIME (test code = PROTIME) 20.1 s 12.0-14.7 [facility] NortheastKcnxeidFKZZSSTNJT8358-03-38 07:17:42 Test Item Value Reference Range Interpretation Comments INR (test code = INR) 1.74 0.85-1.17 [facility] NortheastTvvuculTIIUXEDNXD1624-39-94 07:17:42 Test Item Value Reference Range Interpretation Comments PROTIME (test code = PROTIME) 20.1 s 12.0-14.7 [facility] NortheastCgeatqdHDXDIOPTJW4729-30-82 07:17:42 Test Item Value Reference Range Interpretation Comments INR (test code = INR) 1.74 0.85-1.17 [facility] NortheastFdwscqhNLFFNRFKPP5826-42-52 07:17:42 Test Item Value Reference Range Interpretation Comments PROTIME (test code = PROTIME) 20.1 s 12.0-14.7 [facility] NortheastGixxrksFXMOUXURTC9298-95-81 07:17:42 Test Item Value Reference Range Interpretation Comments INR (test code = INR) 1.74 0.85-1.17 [facility] NortheastPuamqhaGIZHWHTLRM6446-57-04 07:17:42 Test Item Value Reference Range Interpretation Comments PROTIME (test code = PROTIME) 20.1 s 12.0-14.7 [facility] NortheastFjbznkeTOQMCRQJSM3782-16-18 07:17:42 Test Item Value Reference Range Interpretation Comments INR (test code = INR) 1.74 0.85-1.17 [facility] NortheastLfmfqggFFQKZCRCJI8119-92-61 07:17:42 Test Item Value Reference Range Interpretation Comments PROTIME (test code = PROTIME) 20.1 s 12.0-14.7 [facility] NortheastOzergrcDEQUVYICYA8125-91-79 07:17:42 Test Item Value Reference Range Interpretation Comments INR (test code = INR) 1.74 0.85-1.17 [facility] NortheastKotaklfVBERGFAMQJ9608-72-47 07:17:42 Test Item Value Reference Range Interpretation Comments PROTIME (test code = PROTIME) 20.1 s 12.0-14.7 [facility] NortheastIjwwonpGPELAEMGGN8184-14-06 07:17:42 Test Item Value Reference Range Interpretation Comments INR (test code = INR) 1.74 0.85-1.17 [facility] NortheastLirmqxpHTXKHAHDUB2503-38-40 07:17:42 Test Item Value Reference Range Interpretation Comments PROTIME (test code = PROTIME) 20.1 s 12.0-14.7 [facility] NortheastVykxuroUADRGUHNIM2694-74-88 07:17:42 Test Item Value Reference Range Interpretation Comments INR (test code = INR) 1.74 0.85-1.17 [facility] NortheastPixubddQNEGVFVUOL4143-21-09 07:17:42 Test Item Value Reference Range Interpretation Comments PROTIME (test code = PROTIME) 20.1 s 12.0-14.7 [facility] HospitalPjsycgyCVAROGASZL9760-78-16 07:17:42 Test Item Value Reference Range Interpretation Comments INR (test code = INR) 1.74 0.85-1.17 [facility] NortheastDgmjiquCGWPKZTZHI2955-68-68 07:17:42 Test Item Value Reference Range Interpretation Comments PROTIME (test code = PROTIME) 20.1 s 12.0-14.7 H [facility] GLUCOSE [id number] 03:08:00 Test Item Value Reference Range Interpretation Comments Glucose POC (test code = Glucose POC) 181 70-99 H [facility] GLUCOSE NBLDGVX2740-86-73 03:08:00 Test Item Value Reference Range Interpretation Comments Gluc POC Comment 1 (test code Notified RN/MD = Gluc POC Comment 1) [facility] GLUCOSE [id number] 03:08:00 Test Item Value Reference Range Interpretation Comments Glucose POC (test code = Glucose POC) 181 70-99 H [facility] GLUCOSE [id number] 03:08:00 Test Item Value Reference Range Interpretation Comments Gluc POC Comment 1 (test code Notified RN/MD = Gluc POC Comment 1) [facility] GLUCOSE [id number] 03:08:00 Test Item Value Reference Range Interpretation Comments Glucose POC (test code = Glucose POC) 181 70-99 H [facility] GLUCOSE [id number] 03:08:00 Test Item Value Reference Range Interpretation Comments Gluc POC Comment 1 (test code Notified RN/MD = Gluc POC Comment 1) [facility] GLUCOSE [id number] 03:08:00 Test Item Value Reference Range Interpretation Comments Glucose POC (test code = Glucose POC) 181 70-99 H [facility] GLUCOSE [id number] 03:08:00 Test Item Value Reference Range Interpretation Comments Gluc POC Comment 1 (test code Notified RN/MD = Gluc POC Comment 1) [facility] GLUCOSE [id number] 03:08:00 Test Item Value Reference Range Interpretation Comments Glucose POC (test code = Glucose POC) 181 70-99 H [facility] GLUCOSE [id number] 03:08:00 Test Item Value Reference Range Interpretation Comments Gluc POC Comment 1 (test code Notified RN/MD = Gluc POC Comment 1) [facility] GLUCOSE [id number] 03:08:00 Test Item Value Reference Range Interpretation Comments Glucose POC (test code = Glucose POC) 181 70-99 H [facility] GLUCOSE [id number] 03:08:00 Test Item Value Reference Range Interpretation Comments Gluc POC Comment 1 (test code Notified RN/MD = Gluc POC Comment 1) [facility] GLUCOSE [id number] 03:08:00 Test Item Value Reference Range Interpretation Comments Glucose POC (test code = Glucose POC) 181 70-99 H [facility] GLUCOSE [id number] 03:08:00 Test Item Value Reference Range Interpretation Comments Gluc POC Comment 1 (test code Notified RN/MD = Gluc POC Comment 1) [facility] GLUCOSE [id number] 03:08:00 Test Item Value Reference Range Interpretation Comments Glucose POC (test code = Glucose POC) 181 70-99 H [facility] GLUCOSE [id number] 03:08:00 Test Item Value Reference Range Interpretation Comments Gluc POC Comment 1 (test code Notified RN/MD = Gluc POC Comment 1) [facility] GLUCOSE [id number] 03:08:00 Test Item Value Reference Range Interpretation Comments Glucose POC (test code = Glucose POC) 181 70-99 H [facility] GLUCOSE [id number] 03:08:00 Test Item Value Reference Range Interpretation Comments Gluc POC Comment 1 (test code Notified RN/MD = Gluc POC Comment 1) [facility] GLUCOSE [id number] 03:08:00 Test Item Value Reference Range Interpretation Comments Glucose POC (test code = Glucose POC) 181 70-99 H [facility] GLUCOSE [id number] 03:08:00 Test Item Value Reference Range Interpretation Comments Gluc POC Comment 1 (test code Notified RN/MD = Gluc POC Comment 1) [facility] GLUCOSE [id number] 03:08:00 Test Item Value Reference Range Interpretation Comments Glucose POC (test code = Glucose POC) 181 70-99 H [facility] GLUCOSE [id number] 03:08:00 Test Item Value Reference Range Interpretation Comments Gluc POC Comment 1 (test code Notified RN/MD = Gluc POC Comment 1) [facility] GLUCOSE [id number] 03:08:00 Test Item Value Reference Range Interpretation Comments Glucose POC (test code = Glucose POC) 181 70-99 H [facility] GLUCOSE [id number] 03:08:00 Test Item Value Reference Range Interpretation Comments Gluc POC Comment 1 (test code Notified RN/MD = Gluc POC Comment 1) [facility] GLUCOSE [id number] 03:08:00 Test Item Value Reference Range Interpretation Comments Glucose POC (test code = Glucose POC) 181 70-99 H [facility] GLUCOSE [id number] 03:08:00 Test Item Value Reference Range Interpretation Comments Gluc POC Comment 1 (test code Notified RN/MD = Gluc POC Comment 1) [facility] GLUCOSE [id number] 03:08:00 Test Item Value Reference Range Interpretation Comments Glucose POC (test code = Glucose POC) 181 70-99 H [facility] GLUCOSE [id number] 03:08:00 Test Item Value Reference Range Interpretation Comments Gluc POC Comment 1 (test code Notified RN/MD = Gluc POC Comment 1) [facility] GLUCOSE [id number] 03:08:00 Test Item Value Reference Range Interpretation Comments Glucose POC (test code = Glucose POC) 181 70-99 H [facility] GLUCOSE [id number] 03:08:00 Test Item Value Reference Range Interpretation Comments Gluc POC Comment 1 (test code Notified RN/MD = Gluc POC Comment 1) [facility] GLUCOSE [id number] 03:08:00 Test Item Value Reference Range Interpretation Comments Glucose POC (test code = Glucose POC) 181 70-99 H [facility] GLUCOSE [id number] 03:08:00 Test Item Value Reference Range Interpretation Comments Gluc POC Comment 1 (test code Notified RN/MD = Gluc POC Comment 1) [facility] GLUCOSE [id number] 03:08:00 Test Item Value Reference Range Interpretation Comments Glucose POC (test code = Glucose POC) 181 70-99 H [facility] GLUCOSE [id number] 03:08:00 Test Item Value Reference Range Interpretation Comments Gluc POC Comment 1 (test code Notified RN/MD = Gluc POC Comment 1) [facility] GLUCOSE [id number] 03:08:00 Test Item Value Reference Range Interpretation Comments Glucose POC (test code = Glucose POC) 181 70-99 H [facility] GLUCOSE [id number] 03:08:00 Test Item Value Reference Range Interpretation Comments Gluc POC Comment 1 (test code Notified RN/MD = Gluc POC Comment 1) [facility] GLUCOSE [id number] 03:08:00 Test Item Value Reference Range Interpretation Comments Glucose POC (test code = Glucose POC) 181 70-99 H [facility] GLUCOSE [id number] 03:08:00 Test Item Value Reference Range Interpretation Comments Gluc POC Comment 1 (test code Notified RN/MD = Gluc POC Comment 1) [facility] GLUCOSE [id number] 03:08:00 Test Item Value Reference Range Interpretation Comments Glucose POC (test code = Glucose POC) 181 70-99 H [facility] GLUCOSE [id number] 03:08:00 Test Item Value Reference Range Interpretation Comments Gluc POC Comment 1 (test code Notified RN/MD = Gluc POC Comment 1) [facility] GLUCOSE [id number] 03:08:00 Test Item Value Reference Range Interpretation Comments Glucose POC (test code = Glucose POC) 181 70-99 H [facility] GLUCOSE [id number] 03:08:00 Test Item Value Reference Range Interpretation Comments Gluc POC Comment 1 (test code Notified RN/MD = Gluc POC Comment 1) [facility] GLUCOSE [id number] 03:08:00 Test Item Value Reference Range Interpretation Comments Glucose POC (test code = Glucose POC) 181 70-99 H [facility] GLUCOSE [id number] 03:08:00 Test Item Value Reference Range Interpretation Comments Gluc POC Comment 1 (test code Notified RN/MD = Gluc POC Comment 1) [facility] GLUCOSE [id number] 03:08:00 Test Item Value Reference Range Interpretation Comments Glucose POC (test code = Glucose POC) 181 70-99 H [facility] GLUCOSE [id number] 03:08:00 Test Item Value Reference Range Interpretation Comments Gluc POC Comment 1 (test code Notified RN/MD = Gluc POC Comment 1) [facility] GLUCOSE [id number] 03:08:00 Test Item Value Reference Range Interpretation Comments Glucose POC (test code = Glucose POC) 181 70-99 H [facility] GLUCOSE [id number] 03:08:00 Test Item Value Reference Range Interpretation Comments Gluc POC Comment 1 (test code Notified RN/MD = Gluc POC Comment 1) [facility] GLUCOSE [id number] 03:08:00 Test Item Value Reference Range Interpretation Comments Glucose POC (test code = Glucose POC) 181 70-99 H [facility] GLUCOSE [id number] 03:08:00 Test Item Value Reference Range Interpretation Comments Gluc POC Comment 1 (test code Notified RN/MD = Gluc POC Comment 1) [facility] GLUCOSE [id number] 03:08:00 Test Item Value Reference Range Interpretation Comments Glucose POC (test code = Glucose POC) 181 70-99 H [facility] GLUCOSE [id number] 03:08:00 Test Item Value Reference Range Interpretation Comments Gluc POC Comment 1 (test code Notified RN/MD = Gluc POC Comment 1) [facility] GLUCOSE [id number] 03:08:00 Test Item Value Reference Range Interpretation Comments Glucose POC (test code = Glucose POC) 181 70-99 H [facility] GLUCOSE [id number] 03:08:00 Test Item Value Reference Range Interpretation Comments Gluc POC Comment 1 (test code Notified RN/MD = Gluc POC Comment 1) [facility] GLUCOSE [id number] 23:44:00 Test Item Value Reference Range Interpretation Comments Glucose POC (test code = Glucose POC) 85 70-99 N [facility] GLUCOSE [id number] 23:44:00 Test Item Value Reference Range Interpretation Comments Glucose POC (test code = Glucose POC) 85 70-99 N [facility] GLUCOSE [id number] 23:44:00 Test Item Value Reference Range Interpretation Comments Glucose POC (test code = Glucose POC) 85 70-99 N [facility] GLUCOSE [id number] 23:44:00 Test Item Value Reference Range Interpretation Comments Glucose POC (test code = Glucose POC) 85 70-99 N [facility] GLUCOSE [id number] 23:44:00 Test Item Value Reference Range Interpretation Comments Glucose POC (test code = Glucose POC) 85 70-99 N [facility] GLUCOSE [id number] 23:44:00 Test Item Value Reference Range Interpretation Comments Glucose POC (test code = Glucose POC) 85 70-99 N [facility] GLUCOSE [id number] 23:44:00 Test Item Value Reference Range Interpretation Comments Glucose POC (test code = Glucose POC) 85 70-99 N [facility] GLUCOSE [id number] 23:44:00 Test Item Value Reference Range Interpretation Comments Glucose POC (test code = Glucose POC) 85 70-99 N [facility] GLUCOSE [id number] 23:44:00 Test Item Value Reference Range Interpretation Comments Glucose POC (test code = Glucose POC) 85 70-99 N [facility] GLUCOSE [id number] 23:44:00 Test Item Value Reference Range Interpretation Comments Glucose POC (test code = Glucose POC) 85 70-99 N [facility] GLUCOSE [id number] 23:44:00 Test Item Value Reference Range Interpretation Comments Glucose POC (test code = Glucose POC) 85 70-99 N [facility] GLUCOSE [id number] 23:44:00 Test Item Value Reference Range Interpretation Comments Glucose POC (test code = Glucose POC) 85 70-99 N [facility] GLUCOSE [id number] 23:44:00 Test Item Value Reference Range Interpretation Comments Glucose POC (test code = Glucose POC) 85 70-99 N [facility] GLUCOSE [id number] 23:44:00 Test Item Value Reference Range Interpretation Comments Glucose POC (test code = Glucose POC) 85 70-99 N [facility] GLUCOSE [id number] 23:44:00 Test Item Value Reference Range Interpretation Comments Glucose POC (test code = Glucose POC) 85 70-99 N [facility] GLUCOSE [id number] 23:44:00 Test Item Value Reference Range Interpretation Comments Glucose POC (test code = Glucose POC) 85 70-99 N [facility] GLUCOSE [id number] 23:44:00 Test Item Value Reference Range Interpretation Comments Glucose POC (test code = Glucose POC) 85 70-99 N [facility] GLUCOSE [id number] 23:44:00 Test Item Value Reference Range Interpretation Comments Glucose POC (test code = Glucose POC) 85 70-99 N [facility] GLUCOSE [id number] 23:44:00 Test Item Value Reference Range Interpretation Comments Glucose POC (test code = Glucose POC) 85 70-99 N [facility] GLUCOSE [id number] 23:44:00 Test Item Value Reference Range Interpretation Comments Glucose POC (test code = Glucose POC) 85 70-99 N [facility] GLUCOSE [id number] 23:44:00 Test Item Value Reference Range Interpretation Comments Glucose POC (test code = Glucose POC) 85 70-99 N [facility] GLUCOSE [id number] 23:44:00 Test Item Value Reference Range Interpretation Comments Glucose POC (test code = Glucose POC) 85 70-99 N [facility] GLUCOSE [id number] 23:44:00 Test Item Value Reference Range Interpretation Comments Glucose POC (test code = Glucose POC) 85 70-99 N [facility] GLUCOSE [id number] 23:44:00 Test Item Value Reference Range Interpretation Comments Glucose POC (test code = Glucose POC) 85 70-99 N [facility] GLUCOSE [id number] 23:44:00 Test Item Value Reference Range Interpretation Comments Glucose POC (test code = Glucose POC) 85 70-99 N [facility] GLUCOSE [id number] 23:44:00 Test Item Value Reference Range Interpretation Comments Glucose POC (test code = Glucose POC) 85 70-99 N [facility] GLUCOSE [id number] 23:44:00 Test Item Value Reference Range Interpretation Comments Glucose POC (test code = Glucose POC) 85 70-99 N [facility] GLUCOSE [id number] 17:36:00 Test Item Value Reference Range Interpretation Comments Gluc POC Comment 1 (test code Notified RN/MD = Gluc POC Comment 1) [facility] GLUCOSE [id number] 17:36:00 Test Item Value Reference Range Interpretation Comments Glucose POC (test code = Glucose POC) 120 70-99 H [facility] GLUCOSE [id number] 17:36:00 Test Item Value Reference Range Interpretation Comments Gluc POC Comment 1 (test code Notified RN/MD = Gluc POC Comment 1) [facility] GLUCOSE [id number] 17:36:00 Test Item Value Reference Range Interpretation Comments Glucose POC (test code = Glucose POC) 120 70-99 H [facility] GLUCOSE [id number] 17:36:00 Test Item Value Reference Range Interpretation Comments Gluc POC Comment 1 (test code Notified RN/MD = Gluc POC Comment 1) [facility] GLUCOSE [id number] 17:36:00 Test Item Value Reference Range Interpretation Comments Glucose POC (test code = Glucose POC) 120 70-99 H [facility] GLUCOSE [id number] 17:36:00 Test Item Value Reference Range Interpretation Comments Gluc POC Comment 1 (test code Notified RN/MD = Gluc POC Comment 1) [facility] GLUCOSE [id number] 17:36:00 Test Item Value Reference Range Interpretation Comments Glucose POC (test code = Glucose POC) 120 70-99 H [facility] GLUCOSE [id number] 17:36:00 Test Item Value Reference Range Interpretation Comments Gluc POC Comment 1 (test code Notified RN/MD = Gluc POC Comment 1) [facility] GLUCOSE [id number] 17:36:00 Test Item Value Reference Range Interpretation Comments Glucose POC (test code = Glucose POC) 120 70-99 H [facility] GLUCOSE [id number] 17:36:00 Test Item Value Reference Range Interpretation Comments Gluc POC Comment 1 (test code Notified RN/MD = Gluc POC Comment 1) [facility] GLUCOSE [id number] 17:36:00 Test Item Value Reference Range Interpretation Comments Glucose POC (test code = Glucose POC) 120 70-99 H [facility] GLUCOSE [id number] 17:36:00 Test Item Value Reference Range Interpretation Comments Gluc POC Comment 1 (test code Notified RN/MD = Gluc POC Comment 1) [facility] GLUCOSE [id number] 17:36:00 Test Item Value Reference Range Interpretation Comments Glucose POC (test code = Glucose POC) 120 70-99 H [facility] GLUCOSE [id number] 17:36:00 Test Item Value Reference Range Interpretation Comments Gluc POC Comment 1 (test code Notified RN/MD = Gluc POC Comment 1) [facility] GLUCOSE [id number] 17:36:00 Test Item Value Reference Range Interpretation Comments Glucose POC (test code = Glucose POC) 120 70-99 H [facility] GLUCOSE [id number] 17:36:00 Test Item Value Reference Range Interpretation Comments Gluc POC Comment 1 (test code Notified RN/MD = Gluc POC Comment 1) [facility] GLUCOSE [id number] 17:36:00 Test Item Value Reference Range Interpretation Comments Glucose POC (test code = Glucose POC) 120 70-99 H [facility] GLUCOSE [id number] 17:36:00 Test Item Value Reference Range Interpretation Comments Gluc POC Comment 1 (test code Notified RN/MD = Gluc POC Comment 1) [facility] GLUCOSE [id number] 17:36:00 Test Item Value Reference Range Interpretation Comments Glucose POC (test code = Glucose POC) 120 70-99 H [facility] GLUCOSE [id number] 17:36:00 Test Item Value Reference Range Interpretation Comments Gluc POC Comment 1 (test code Notified RN/MD = Gluc POC Comment 1) [facility] GLUCOSE [id number] 17:36:00 Test Item Value Reference Range Interpretation Comments Glucose POC (test code = Glucose POC) 120 70-99 H [facility] GLUCOSE [id number] 17:36:00 Test Item Value Reference Range Interpretation Comments Gluc POC Comment 1 (test code Notified RN/MD = Gluc POC Comment 1) [facility] GLUCOSE [id number] 17:36:00 Test Item Value Reference Range Interpretation Comments Glucose POC (test code = Glucose POC) 120 70-99 H [facility] GLUCOSE [id number] 17:36:00 Test Item Value Reference Range Interpretation Comments Gluc POC Comment 1 (test code Notified RN/MD = Gluc POC Comment 1) [facility] GLUCOSE [id number] 17:36:00 Test Item Value Reference Range Interpretation Comments Glucose POC (test code = Glucose POC) 120 70-99 H [facility] GLUCOSE [id number] 17:36:00 Test Item Value Reference Range Interpretation Comments Gluc POC Comment 1 (test code Notified RN/MD = Gluc POC Comment 1) [facility] GLUCOSE [id number] 17:36:00 Test Item Value Reference Range Interpretation Comments Glucose POC (test code = Glucose POC) 120 70-99 H [facility] GLUCOSE [id number] 17:36:00 Test Item Value Reference Range Interpretation Comments Gluc POC Comment 1 (test code Notified RN/MD = Gluc POC Comment 1) [facility] GLUCOSE [id number] 17:36:00 Test Item Value Reference Range Interpretation Comments Glucose POC (test code = Glucose POC) 120 70-99 H [facility] GLUCOSE [id number] 17:36:00 Test Item Value Reference Range Interpretation Comments Gluc POC Comment 1 (test code Notified RN/MD = Gluc POC Comment 1) [facility] GLUCOSE [id number] 17:36:00 Test Item Value Reference Range Interpretation Comments Glucose POC (test code = Glucose POC) 120 70-99 H [facility] GLUCOSE [id number] 17:36:00 Test Item Value Reference Range Interpretation Comments Gluc POC Comment 1 (test code Notified RN/MD = Gluc POC Comment 1) [facility] GLUCOSE [id number] 17:36:00 Test Item Value Reference Range Interpretation Comments Glucose POC (test code = Glucose POC) 120 70-99 H [facility] GLUCOSE [id number] 17:36:00 Test Item Value Reference Range Interpretation Comments Gluc POC Comment 1 (test code Notified RN/MD = Gluc POC Comment 1) [facility] GLUCOSE [id number] 17:36:00 Test Item Value Reference Range Interpretation Comments Glucose POC (test code = Glucose POC) 120 70-99 H [facility] GLUCOSE [id number] 17:36:00 Test Item Value Reference Range Interpretation Comments Gluc POC Comment 1 (test code Notified RN/MD = Gluc POC Comment 1) [facility] GLUCOSE [id number] 17:36:00 Test Item Value Reference Range Interpretation Comments Glucose POC (test code = Glucose POC) 120 70-99 H [facility] GLUCOSE [id number] 17:36:00 Test Item Value Reference Range Interpretation Comments Gluc POC Comment 1 (test code Notified RN/MD = Gluc POC Comment 1) [facility] GLUCOSE [id number] 17:36:00 Test Item Value Reference Range Interpretation Comments Glucose POC (test code = Glucose POC) 120 70-99 H [facility] GLUCOSE [id number] 17:36:00 Test Item Value Reference Range Interpretation Comments Gluc POC Comment 1 (test code Notified RN/MD = Gluc POC Comment 1) [facility] GLUCOSE [id number] 17:36:00 Test Item Value Reference Range Interpretation Comments Glucose POC (test code = Glucose POC) 120 70-99 H [facility] GLUCOSE [id number] 17:36:00 Test Item Value Reference Range Interpretation Comments Gluc POC Comment 1 (test code Notified RN/MD = Gluc POC Comment 1) [facility] GLUCOSE [id number] 17:36:00 Test Item Value Reference Range Interpretation Comments Glucose POC (test code = Glucose POC) 120 70-99 H [facility] GLUCOSE [id number] 17:36:00 Test Item Value Reference Range Interpretation Comments Gluc POC Comment 1 (test code Notified RN/MD = Gluc POC Comment 1) [facility] GLUCOSE [id number] 17:36:00 Test Item Value Reference Range Interpretation Comments Glucose POC (test code = Glucose POC) 120 70-99 H [facility] GLUCOSE [id number] 17:36:00 Test Item Value Reference Range Interpretation Comments Gluc POC Comment 1 (test code Notified RN/MD = Gluc POC Comment 1) [facility] GLUCOSE [id number] 17:36:00 Test Item Value Reference Range Interpretation Comments Glucose POC (test code = Glucose POC) 120 70-99 H [facility] GLUCOSE [id number] 17:36:00 Test Item Value Reference Range Interpretation Comments Gluc POC Comment 1 (test code Notified RN/MD = Gluc POC Comment 1) [facility] GLUCOSE [id number] 17:36:00 Test Item Value Reference Range Interpretation Comments Glucose POC (test code = Glucose POC) 120 70-99 H [facility] GLUCOSE [id number] 17:36:00 Test Item Value Reference Range Interpretation Comments Gluc POC Comment 1 (test code Notified RN/MD = Gluc POC Comment 1) [facility] GLUCOSE [id number] 17:36:00 Test Item Value Reference Range Interpretation Comments Glucose POC (test code = Glucose POC) 120 70-99 H [facility] GLUCOSE [id number] 17:36:00 Test Item Value Reference Range Interpretation Comments Gluc POC Comment 1 (test code Notified RN/MD = Gluc POC Comment 1) [facility] GLUCOSE [id number] 17:36:00 Test Item Value Reference Range Interpretation Comments Glucose POC (test code = Glucose POC) 120 70-99 H [facility] GLUCOSE [id number] 11:53:00 Test Item Value Reference Range Interpretation Comments Gluc POC Comment 1 (test code Notified RN/MD = Gluc POC Comment 1) [facility] GLUCOSE [id number] 11:53:00 Test Item Value Reference Range Interpretation Comments Gluc POC Comment 1 (test code Notified RN/MD = Gluc POC Comment 1) [facility] GLUCOSE [id number] 11:53:00 Test Item Value Reference Range Interpretation Comments Gluc POC Comment 1 (test code Notified RN/MD = Gluc POC Comment 1) [facility] GLUCOSE [id number] 11:53:00 Test Item Value Reference Range Interpretation Comments Gluc POC Comment 1 (test code Notified RN/MD = Gluc POC Comment 1) [facility] GLUCOSE [id number] 11:53:00 Test Item Value Reference Range Interpretation Comments Gluc POC Comment 1 (test code Notified RN/MD = Gluc POC Comment 1) [facility] GLUCOSE [id number] 11:53:00 Test Item Value Reference Range Interpretation Comments Gluc POC Comment 1 (test code Notified RN/MD = Gluc POC Comment 1) [facility] GLUCOSE [id number] 11:53:00 Test Item Value Reference Range Interpretation Comments Gluc POC Comment 1 (test code Notified RN/MD = Gluc POC Comment 1) [facility] GLUCOSE [id number] 11:53:00 Test Item Value Reference Range Interpretation Comments Gluc POC Comment 1 (test code Notified RN/MD = Gluc POC Comment 1) [facility] GLUCOSE [id number] 11:53:00 Test Item Value Reference Range Interpretation Comments Gluc POC Comment 1 (test code Notified RN/MD = Gluc POC Comment 1) [facility] GLUCOSE [id number] 11:53:00 Test Item Value Reference Range Interpretation Comments Gluc POC Comment 1 (test code Notified RN/MD = Gluc POC Comment 1) [facility] GLUCOSE [id number] 11:53:00 Test Item Value Reference Range Interpretation Comments Gluc POC Comment 1 (test code Notified RN/MD = Gluc POC Comment 1) [facility] GLUCOSE [id number] 11:53:00 Test Item Value Reference Range Interpretation Comments Gluc POC Comment 1 (test code Notified RN/MD = Gluc POC Comment 1) [facility] GLUCOSE [id number] 11:53:00 Test Item Value Reference Range Interpretation Comments Gluc POC Comment 1 (test code Notified RN/MD = Gluc POC Comment 1) [facility] GLUCOSE [id number] 11:53:00 Test Item Value Reference Range Interpretation Comments Gluc POC Comment 1 (test code Notified RN/MD = Gluc POC Comment 1) [facility] GLUCOSE [id number] 11:53:00 Test Item Value Reference Range Interpretation Comments Gluc POC Comment 1 (test code Notified RN/MD = Gluc POC Comment 1) [facility] GLUCOSE [id number] 11:53:00 Test Item Value Reference Range Interpretation Comments Gluc POC Comment 1 (test code Notified RN/MD = Gluc POC Comment 1) [facility] GLUCOSE [id number] 11:53:00 Test Item Value Reference Range Interpretation Comments Gluc POC Comment 1 (test code Notified RN/MD = Gluc POC Comment 1) [facility] GLUCOSE [id number] 11:53:00 Test Item Value Reference Range Interpretation Comments Gluc POC Comment 1 (test code Notified RN/MD = Gluc POC Comment 1) [facility] GLUCOSE [id number] 11:53:00 Test Item Value Reference Range Interpretation Comments Gluc POC Comment 1 (test code Notified RN/MD = Gluc POC Comment 1) [facility] GLUCOSE [id number] 11:53:00 Test Item Value Reference Range Interpretation Comments Gluc POC Comment 1 (test code Notified RN/MD = Gluc POC Comment 1) [facility] GLUCOSE [id number] 11:53:00 Test Item Value Reference Range Interpretation Comments Gluc POC Comment 1 (test code Notified RN/MD = Gluc POC Comment 1) [facility] GLUCOSE [id number] 11:53:00 Test Item Value Reference Range Interpretation Comments Gluc POC Comment 1 (test code Notified RN/MD = Gluc POC Comment 1) [facility] GLUCOSE [id number] 11:53:00 Test Item Value Reference Range Interpretation Comments Gluc POC Comment 1 (test code Notified RN/MD = Gluc POC Comment 1) [facility] GLUCOSE [id number] 11:53:00 Test Item Value Reference Range Interpretation Comments Gluc POC Comment 1 (test code Notified RN/MD = Gluc POC Comment 1) [facility] GLUCOSE [id number] 11:53:00 Test Item Value Reference Range Interpretation Comments Gluc POC Comment 1 (test code Notified RN/MD = Gluc POC Comment 1) [facility] GLUCOSE [id number] 11:53:00 Test Item Value Reference Range Interpretation Comments Gluc POC Comment 1 (test code Notified RN/MD = Gluc POC Comment 1) [facility] GLUCOSE [id number] 11:53:00 Test Item Value Reference Range Interpretation Comments Gluc POC Comment 1 (test code Notified RN/MD = Gluc POC Comment 1) [facility] CenterRcupaxaACWSPBKUG4668-94-42 09:59:00 Test Item Value Reference Range Interpretation Comments AGAP (test code = AGAP) 13.3 10.0-20.0 [facility]OzpghvwAFDSXOWJW7492-65-75 09:59:00 Test Item Value Reference Range Interpretation Comments Glucose Lvl (test code = Glucose Lvl) 119 70-99 H [facility] CenterVksjjexUCVEZFRDZ4292-73-62 09:59:00 Test Item Value Reference Range Interpretation Comments Chloride Lvl (test code = Chloride Lvl) 107 95-109 N [facility] CenterYlozpddJWHVZYMQU3277-59-05 09:59:00 Test Item Value Reference Range Interpretation Comments Potassium Lvl (test code = Potassium 4.3 3.5-5.1 N Lvl) [facility] CenterIdriirvJZXKDHMUI4798-97-96 09:59:00 Test Item Value Reference Range Interpretation Comments BUN (test code = BUN) 26 7-22 H [facility] CenterChvledxKHUIGFYKH8505-54-41 09:59:00 Test Item Value Reference Range Interpretation Comments Sodium Lvl (test code = Sodium Lvl) 141 135-145 N [facility] CenterQvcjzmiSDBZJGWRJ7564-83-80 09:59:00 Test Item Value Reference Range Interpretation Comments Creatinine Lvl (test code = Creatinine 1.2 0.5-1.4 N Lvl) [facility] CenterRfhazuuFPOMPFENF9762-08-67 09:59:00 Test Item Value Reference Range Interpretation Comments Calcium Lvl (test code = Calcium Lvl) 8.2 8.5-10.5 L [facility] CenterMyhtrxjJETRWELUZ1137-17-21 09:59:00 Test Item Value Reference Range Interpretation Comments CO2 (test code = CO2) 25 24-32 N [facility] CenterWngdwmtFQBRQBOJD9634-38-73 09:59:00 Test Item Value Reference Range Interpretation Comments eGFR (test code = eGFR) 43 [facility]PeimkamAACOQBLZWV2569-52-88 09:59:00 Test Item Value Reference Range Interpretation Comments INR (test code = INR) 2.04 0.85-1.17 H [facility] NortheastGzgiarxYIQSBFCKKK2763-36-78 09:59:00 Test Item Value Reference Range Interpretation Comments PROTIME (test code = PROTIME) 22.7 s 12.0-14.7 H [facility] NortheastSdgavmvPTAWLDODYU5336-04-79 09:59:00 Test Item Value Reference Range Interpretation Comments Basophils # (test code = Basophils #) 0.1 <=0.2 N [facility] NortheastOtbbdmcEKNQRAQWZN6070-05-50 09:59:00 Test Item Value Reference Range Interpretation Comments Eosinophils # (test code = Eosinophils 0.4 <=0.5 N #) [facility] NortheastZsicsbtICMIIFZFWV6180-66-26 09:59:00 Test Item Value Reference Range Interpretation Comments Monocytes # (test code = Monocytes #) 0.7 <=0.8 N [facility] NortheastMrytbnbABNZXAJSGJ2600-89-94 09:59:00 Test Item Value Reference Range Interpretation Comments Lymphocytes # (test code = Lymphocytes 2.7 1.0-5.5 N #) [facility] NortheastRzrovlrFCDKRWOSJM7181-12-28 09:59:00 Test Item Value Reference Range Interpretation Comments Segs-Bands # (test code = Segs-Bands #) 4.7 1.5-8.1 N [facility] NortheastZdudejyOBAXLRTINL8058-54-93 09:59:00 Test Item Value Reference Range Interpretation Comments Basophils (test code = Basophils) 0.8 <=1.0 N [facility] NortheastRapnzncYMWEPCTEQQ9607-95-27 09:59:00 Test Item Value Reference Range Interpretation Comments Eosinophils (test code = Eosinophils) 5.1 <=4.0 H [facility] NortheastTwoaeodRSATSOTEOK5821-49-24 09:59:00 Test Item Value Reference Range Interpretation Comments Lymphocytes (test code = Lymphocytes) 31.8 20.0-40.0 N [facility] NortheastGtfdmnlVDXWAXFPAF9127-15-00 09:59:00 Test Item Value Reference Range Interpretation Comments Segs (test code = Segs) 54.5 45.0-75.0 N [facility] NortheastHssdpqaJWRANDMTRX8884-57-47 09:59:00 Test Item Value Reference Range Interpretation Comments Monocytes (test code = Monocytes) 7.8 2.0-12.0 N [place] 407854-02-02 09:59:00 Test Item Value Reference Range Interpretation Comments WBC X 10x3 (test code = WBC X 10x3) 8.7 3.7-10.4 N [facility] NortheastWufjdtePEGEZSSVOQ4021-93-18 09:59:00 Test Item Value Reference Range Interpretation Comments MCHC (test code = MCHC) 33.1 32.0-36.0 N [facility] NortheastInikqbgMXEIMMLUNJ6695-67-08 09:59:00 Test Item Value Reference Range Interpretation Comments RBC X 10x6 (test code = RBC X 10x6) 2.83 4.20-5.40 L [facility] NortheastGmrhypsLISLDNIJZT4748-48-38 09:59:00 Test Item Value Reference Range Interpretation Comments Platelet (test code = Platelet) 544 133-450 H [facility] NortheastGsqzospFSDSOYDOKR2619-54-85 09:59:00 Test Item Value Reference Range Interpretation Comments MPV (test code = MPV) 6.7 7.4-10.4 L [facility] NortheastJdsgwlhSPAGKYBHVX8482-30-15 09:59:00 Test Item Value Reference Range Interpretation Comments RDW (test code = RDW) 14.4 11.5-14.5 N [facility] NortheastUwkmgwiHMWEMGJGSA6548-74-85 09:59:00 Test Item Value Reference Range Interpretation Comments Hgb (test code = Hgb) 8.5 12.0-16.0 L [facility] NortheastOfllhouKVNKBWKBCI7512-99-06 09:59:00 Test Item Value Reference Range Interpretation Comments MCH (test code = MCH) 30.2 pg 27.0-31.0 N [facility] NortheastPylnbhpYWYQRPDNHA2659-98-02 09:59:00 Test Item Value Reference Range Interpretation Comments Hct (test code = Hct) 25.8 36.0-48.0 L [facility] NortheastPqblbuwCUBERLAYKY9897-25-19 09:59:00 Test Item Value Reference Range Interpretation Comments MCV (test code = MCV) 91.2 81.0-99.0 N [facility] CenterEwxogskHLXXJUKKQ1523-77-64 09:59:00 Test Item Value Reference Range Interpretation Comments AGAP (test code = AGAP) 13.3 10.0-20.0 N [facility] CenterKyjyxucZLQDEZTTV7950-63-36 09:59:00 Test Item Value Reference Range Interpretation Comments Glucose Lvl (test code = Glucose Lvl) 119 70-99 H [facility] CenterYoaqfsxXNLWJBIJS7930-90-77 09:59:00 Test Item Value Reference Range Interpretation Comments Chloride Lvl (test code = Chloride Lvl) 107 95-109 N [facility] CenterZrhgsgtRQGEIBAPP9185-61-77 09:59:00 Test Item Value Reference Range Interpretation Comments Potassium Lvl (test code = Potassium 4.3 3.5-5.1 N Lvl) [facility] CenterCadvomrOBBDFPCRN8609-92-22 09:59:00 Test Item Value Reference Range Interpretation Comments BUN (test code = BUN) 26 7-22 H [facility] CenterQqdpxuwLWIGXGNJK5800-30-59 09:59:00 Test Item Value Reference Range Interpretation Comments Sodium Lvl (test code = Sodium Lvl) 141 135-145 N [facility] CenterRdgasnyWXWPPTOSI7123-78-83 09:59:00 Test Item Value Reference Range Interpretation Comments Creatinine Lvl (test code = Creatinine 1.2 0.5-1.4 N Lvl) [facility] CenterRogqptyKMVMVXRUL3234-07-13 09:59:00 Test Item Value Reference Range Interpretation Comments Calcium Lvl (test code = Calcium Lvl) 8.2 8.5-10.5 L [facility] CenterUpchutgHWSJNQNTE2286-10-83 09:59:00 Test Item Value Reference Range Interpretation Comments CO2 (test code = CO2) 25 24-32 N [facility] CenterBqbhsboPDRIYMLTD5936-03-35 09:59:00 Test Item Value Reference Range Interpretation Comments eGFR (test code = eGFR) 43 [facility] NortheastEwrhzoyVXAZVOEQUB2833-30-06 09:59:00 Test Item Value Reference Range Interpretation Comments INR (test code = INR) 2.04 0.85-1.17 H [facility] NortheastAdcpwbaTSFONLKBJR5228-06-87 09:59:00 Test Item Value Reference Range Interpretation Comments PROTIME (test code = PROTIME) 22.7 s 12.0-14.7 H [facility] NortheastYpyqnuhZEUDQZHBTW2807-15-90 09:59:00 Test Item Value Reference Range Interpretation Comments Basophils # (test code 0.1 See_Comment N [Aut omated message] The = Basophils #) system which generated this result tra nsmitted reference range : <=0.2. The reference r andreia was not used to int erpret this result as normal/abnormal . [facility] NortheastQurgtknTGCTZKDKBD2471-28-22 09:59:00 Test Item Value Reference Range Interpretation Comments Eosinophils # (test code 0.4 See_Comment N [A utomated message] The = Eosinophils #) system whic h generated this result tra nsmitted reference range : <=0.5. The reference r andreia was not used to int erpret this result as normal/abnormal . [facility] NortheastCodlpllPVJBNFBZBN4108-94-71 09:59:00 Test Item Value Reference Range Interpretation Comments Monocytes # (test code 0.7 See_Comment N [Aut omated message] The = Monocytes #) system which generated this result tra nsmitted reference range : <=0.8. The reference r andreia was not used to int erpret this result as normal/abnormal . [facility] NortheastKsfsfpgJGQMZIHLWK4925-05-41 09:59:00 Test Item Value Reference Range Interpretation Comments Lymphocytes # (test code = Lymphocytes 2.7 1.0-5.5 N #) [facility] NortheastEppijkhTFBNELILQX9794-52-22 09:59:00 Test Item Value Reference Range Interpretation Comments Segs-Bands # (test code = Segs-Bands #) 4.7 1.5-8.1 N [facility] NortheastQhxacsvYVKAPOVBLV0744-44-32 09:59:00 Test Item Value Reference Range Interpretation Comments Basophils (test code = 0.8 See_Comment N [Aut omated message] The Basophils) system which ge nerated this result tra nsmitted reference range : <=1.0. The reference r andreia was not used to int erpret this result as normal/abnormal . [facility] NortheastTyvcnlcQMIUQAIGII5246-86-44 09:59:00 Test Item Value Reference Range Interpretation Comments Eosinophils (test code = 5.1 See_Comment H [A utomated message] The Eosinophils) system which ge nerated this result tra nsmitted reference range : <=4.0. The reference r andreia was not used to int erpret this result as normal/abnormal . [facility] NortheastBjmnxxvYEFWKWZWLS6404-97-53 09:59:00 Test Item Value Reference Range Interpretation Comments Lymphocytes (test code = Lymphocytes) 31.8 20.0-40.0 N [facility] NortheastJjlzgbxDPIFJIFUXB2049-57-41 09:59:00 Test Item Value Reference Range Interpretation Comments Segs (test code = Segs) 54.5 45.0-75.0 N [facility] NortheastApqykilPXNWJZOMFM1349-03-57 09:59:00 Test Item Value Reference Range Interpretation Comments Monocytes (test code = Monocytes) 7.8 2.0-12.0 N [facility] NortheastJvvrqqyJIGGMHRIQQ9010-06-37 09:59:00 Test Item Value Reference Range Interpretation Comments WBC X 10x3 (test code = WBC X 10x3) 8.7 3.7-10.4 N [facility] NortheastGklkofmHUJKRXHPVQ2545-57-40 09:59:00 Test Item Value Reference Range Interpretation Comments MCHC (test code = MCHC) 33.1 32.0-36.0 N [facility] NortheastBzkyjheKWPVPEOJMU8932-86-03 09:59:00 Test Item Value Reference Range Interpretation Comments RBC X 10x6 (test code = RBC X 10x6) 2.83 4.20-5.40 L [facility] NortheastRsmedmzPMXJBPJCSM3117-71-75 09:59:00 Test Item Value Reference Range Interpretation Comments Platelet (test code = Platelet) 544 133-450 H [facility] NortheastByjhxuyAYMOZNEZWC3264-44-65 09:59:00 Test Item Value Reference Range Interpretation Comments MPV (test code = MPV) 6.7 7.4-10.4 L [facility] NortheastQknernmNJXFUJATLL4097-92-81 09:59:00 Test Item Value Reference Range Interpretation Comments RDW (test code = RDW) 14.4 11.5-14.5 N [facility] NortheastAynhhimJMBQYKOMEU4550-60-22 09:59:00 Test Item Value Reference Range Interpretation Comments Hgb (test code = Hgb) 8.5 12.0-16.0 L [facility] NortheastLtdjeqtXTZQYVKHOB3819-92-50 09:59:00 Test Item Value Reference Range Interpretation Comments MCH (test code = MCH) 30.2 pg 27.0-31.0 N [facility] NortheastJsbjwroIZJHIUTPBE1988-39-55 09:59:00 Test Item Value Reference Range Interpretation Comments Hct (test code = Hct) 25.8 36.0-48.0 L [facility] NortheastXhencsbBXWPBFBILF4272-83-07 09:59:00 Test Item Value Reference Range Interpretation Comments MCV (test code = MCV) 91.2 81.0-99.0 N [facility] CenterPalkskbTCDJUOSFF9977-84-85 09:59:00 Test Item Value Reference Range Interpretation Comments AGAP (test code = AGAP) 13.3 10.0-20.0 N [facility] CenterGxvzxwvRIAKIPACF7440-78-05 09:59:00 Test Item Value Reference Range Interpretation Comments Glucose Lvl (test code = Glucose Lvl) 119 70-99 H [facility] CenterUeawqpvYUALNFCHU8231-85-73 09:59:00 Test Item Value Reference Range Interpretation Comments Chloride Lvl (test code = Chloride Lvl) 107 95-109 N [facility] CenterUsfnqueCZTTGUGRO6319-53-49 09:59:00 Test Item Value Reference Range Interpretation Comments Potassium Lvl (test code = Potassium 4.3 3.5-5.1 N Lvl) [facility] CenterBhuzeorHQZSVWTSD1375-19-37 09:59:00 Test Item Value Reference Range Interpretation Comments BUN (test code = BUN) 26 7-22 H [facility] CenterOegvedhMJCBTQMMT6840-55-23 09:59:00 Test Item Value Reference Range Interpretation Comments Sodium Lvl (test code = Sodium Lvl) 141 135-145 N [facility] CenterNqvlfjfKEGQZZUZJ2946-46-12 09:59:00 Test Item Value Reference Range Interpretation Comments Creatinine Lvl (test code = Creatinine 1.2 0.5-1.4 N Lvl) [facility] CenterKqkkbkeXXMHBSRMZ9688-51-72 09:59:00 Test Item Value Reference Range Interpretation Comments Calcium Lvl (test code = Calcium Lvl) 8.2 8.5-10.5 L [facility] CenterOottjbeNTOTNOPGV2848-71-01 09:59:00 Test Item Value Reference Range Interpretation Comments CO2 (test code = CO2) 25 24-32 N [facility] CenterYqgypbnUXLCUHQLK5030-44-09 09:59:00 Test Item Value Reference Range Interpretation Comments eGFR (test code = eGFR) 43 [facility] NortheastUngiwjcLOFEJJZBOC0415-20-42 09:59:00 Test Item Value Reference Range Interpretation Comments INR (test code = INR) 2.04 0.85-1.17 H [facility] NortheastGeieaiaRLKKEYOLIN0873-38-68 09:59:00 Test Item Value Reference Range Interpretation Comments PROTIME (test code = PROTIME) 22.7 s 12.0-14.7 H [facility] NortheastQdxflpjREMBGTKHML9128-50-67 09:59:00 Test Item Value Reference Range Interpretation Comments Basophils # (test code 0.1 See_Comment N [Aut omated message] The = Basophils #) system which generated this result tra nsmitted reference range : <=0.2. The reference r andreia was not used to int erpret this result as normal/abnormal . [facility] NortheastBeidtmiKZIOPXLGMB1771-73-36 09:59:00 Test Item Value Reference Range Interpretation Comments Eosinophils # (test code 0.4 See_Comment N [A utomated message] The = Eosinophils #) system whic h generated this result tra nsmitted reference range : <=0.5. The reference r andreia was not used to int erpret this result as normal/abnormal . [facility] NortheastPrydfyySZVUECXUVF8233-16-36 09:59:00 Test Item Value Reference Range Interpretation Comments Monocytes # (test code 0.7 See_Comment N [Aut omated message] The = Monocytes #) system which generated this result tra nsmitted reference range : <=0.8. The reference r andreia was not used to int erpret this result as normal/abnormal . [facility] NortheastQpkdekxZQPFGVDNLZ6733-16-31 09:59:00 Test Item Value Reference Range Interpretation Comments Lymphocytes # (test code = Lymphocytes 2.7 1.0-5.5 N #) [facility] NortheastTdlxcpoEMRYEMFQBB1378-28-23 09:59:00 Test Item Value Reference Range Interpretation Comments Segs-Bands # (test code = Segs-Bands #) 4.7 1.5-8.1 N [facility] NortheastUyxzzkuVLUKNXFHTB0709-58-96 09:59:00 Test Item Value Reference Range Interpretation Comments Basophils (test code = 0.8 See_Comment N [Aut omated message] The Basophils) system which ge nerated this result tra nsmitted reference range : <=1.0. The reference r andreia was not used to int erpret this result as normal/abnormal . [facility] NortheastFnfuhidTUIMXEYGKG7385-98-83 09:59:00 Test Item Value Reference Range Interpretation Comments Eosinophils (test code = 5.1 See_Comment H [A utomated message] The Eosinophils) system which ge nerated this result tra nsmitted reference range : <=4.0. The reference r andreia was not used to int erpret this result as normal/abnormal . [facility] NortheastGxkzozsFHHIEKCELQ7173-22-45 09:59:00 Test Item Value Reference Range Interpretation Comments Lymphocytes (test code = Lymphocytes) 31.8 20.0-40.0 N [facility] NortheastZltdwcsCWGKKVVIMS3986-94-71 09:59:00 Test Item Value Reference Range Interpretation Comments Segs (test code = Segs) 54.5 45.0-75.0 N [facility] NortheastNkbjqmsEFQPJFJCPN7855-86-99 09:59:00 Test Item Value Reference Range Interpretation Comments Monocytes (test code = Monocytes) 7.8 2.0-12.0 N [facility] NortheastMbbmmsvLJJQYHLFCA4937-23-85 09:59:00 Test Item Value Reference Range Interpretation Comments WBC X 10x3 (test code = WBC X 10x3) 8.7 3.7-10.4 N [facility] NortheastHkidfahTBLZAZMZIR0034-37-31 09:59:00 Test Item Value Reference Range Interpretation Comments MCHC (test code = MCHC) 33.1 32.0-36.0 N [facility] NortheastHluoyasMMDXOJMDAO6668-47-55 09:59:00 Test Item Value Reference Range Interpretation Comments RBC X 10x6 (test code = RBC X 10x6) 2.83 4.20-5.40 L [facility] NortheastAhrcgseBWVYMFCHKG5321-34-41 09:59:00 Test Item Value Reference Range Interpretation Comments Platelet (test code = Platelet) 544 133-450 H [facility] NortheastTaczrwhKYPONZKOWY1511-27-01 09:59:00 Test Item Value Reference Range Interpretation Comments MPV (test code = MPV) 6.7 7.4-10.4 L [facility] NortheastObxdiyrMTOACCPQEM1843-06-90 09:59:00 Test Item Value Reference Range Interpretation Comments RDW (test code = RDW) 14.4 11.5-14.5 N [facility] NortheastQqhebrlUWJBRGKJOU1225-86-88 09:59:00 Test Item Value Reference Range Interpretation Comments Hgb (test code = Hgb) 8.5 12.0-16.0 L [facility] NortheastCabbaveHZAHZJMXKI0841-58-16 09:59:00 Test Item Value Reference Range Interpretation Comments MCH (test code = MCH) 30.2 pg 27.0-31.0 N [facility] NortheastQwsxcvvHZIRZTXCMX0417-20-31 09:59:00 Test Item Value Reference Range Interpretation Comments Hct (test code = Hct) 25.8 36.0-48.0 L [facility] NortheastGwgveplWAFZPETUFC9772-54-37 09:59:00 Test Item Value Reference Range Interpretation Comments MCV (test code = MCV) 91.2 81.0-99.0 N [facility] CenterEcpyzwcXDWOLQAFU4271-82-22 09:59:00 Test Item Value Reference Range Interpretation Comments AGAP (test code = AGAP) 13.3 10.0-20.0 N [facility] CenterBpbeigkOLZTHQZNO8972-97-22 09:59:00 Test Item Value Reference Range Interpretation Comments Glucose Lvl (test code = Glucose Lvl) 119 70-99 H [facility] CenterZvdvzgjNAJOTOJTM8160-88-58 09:59:00 Test Item Value Reference Range Interpretation Comments Chloride Lvl (test code = Chloride Lvl) 107 95-109 N [facility] CenterMjvkkhdKXXYXNEUF4511-21-66 09:59:00 Test Item Value Reference Range Interpretation Comments Potassium Lvl (test code = Potassium 4.3 3.5-5.1 N Lvl) [facility] CenterIsjjmciFHSVQSTAJ9684-61-35 09:59:00 Test Item Value Reference Range Interpretation Comments BUN (test code = BUN) 26 7-22 H [facility] CenterVfvgiziRQFSZOVNP4534-93-94 09:59:00 Test Item Value Reference Range Interpretation Comments Sodium Lvl (test code = Sodium Lvl) 141 135-145 N [facility] CenterWbewhbeIXCVHUPBR1602-51-69 09:59:00 Test Item Value Reference Range Interpretation Comments Creatinine Lvl (test code = Creatinine 1.2 0.5-1.4 N Lvl) [facility] CenterJwkwlgiAEVYKMDVZ0686-11-92 09:59:00 Test Item Value Reference Range Interpretation Comments Calcium Lvl (test code = Calcium Lvl) 8.2 8.5-10.5 L [facility] CenterGxedggzUBBMIFJRA2417-22-78 09:59:00 Test Item Value Reference Range Interpretation Comments CO2 (test code = CO2) 25 24-32 N [facility] CenterQwkycwhRJGYGNUQI4112-85-94 09:59:00 Test Item Value Reference Range Interpretation Comments eGFR (test code = eGFR) 43 [facility] NortheastIzosmquDFELXWUNUM9803-20-59 09:59:00 Test Item Value Reference Range Interpretation Comments INR (test code = INR) 2.04 0.85-1.17 H [facility] NortheastHifeatsRQBJRPEIOA5947-37-61 09:59:00 Test Item Value Reference Range Interpretation Comments PROTIME (test code = PROTIME) 22.7 s 12.0-14.7 H [facility] NortheastBesjunsRLCDBROBWD9629-12-66 09:59:00 Test Item Value Reference Range Interpretation Comments Basophils # (test code 0.1 See_Comment N [Aut omated message] The = Basophils #) system which generated this result tra nsmitted reference range : <=0.2. The reference r andreia was not used to int erpret this result as normal/abnormal . [facility] NortheastDkouquePQKEACNMMZ6567-79-79 09:59:00 Test Item Value Reference Range Interpretation Comments Eosinophils # (test code 0.4 See_Comment N [A utomated message] The = Eosinophils #) system whic h generated this result tra nsmitted reference range : <=0.5. The reference r andreia was not used to int erpret this result as normal/abnormal . [facility] NortheastNobozqlZCRPHMLYFR9796-59-15 09:59:00 Test Item Value Reference Range Interpretation Comments Monocytes # (test code 0.7 See_Comment N [Aut omated message] The = Monocytes #) system which generated this result tra nsmitted reference range : <=0.8. The reference r andreia was not used to int erpret this result as normal/abnormal . [facility] NortheastUezzomcHWNWBPZXEM1947-48-59 09:59:00 Test Item Value Reference Range Interpretation Comments Lymphocytes # (test code = Lymphocytes 2.7 1.0-5.5 N #) [facility] NortheastShsfxhlWHUPRCWNDL7465-87-29 09:59:00 Test Item Value Reference Range Interpretation Comments Segs-Bands # (test code = Segs-Bands #) 4.7 1.5-8.1 N [facility] NortheastTecdpygBQZCFFQAHI2577-58-76 09:59:00 Test Item Value Reference Range Interpretation Comments Basophils (test code = 0.8 See_Comment N [Aut omated message] The Basophils) system which ge nerated this result tra nsmitted reference range : <=1.0. The reference r andreia was not used to int erpret this result as normal/abnormal . [facility] NortheastNxnswcwIRSCMFKICB0598-99-27 09:59:00 Test Item Value Reference Range Interpretation Comments Eosinophils (test code = 5.1 See_Comment H [A utomated message] The Eosinophils) system which ge nerated this result tra nsmitted reference range : <=4.0. The reference r andreia was not used to int erpret this result as normal/abnormal . [facility] NortheastYnxmybyHKIBGFQMBK3549-04-07 09:59:00 Test Item Value Reference Range Interpretation Comments Lymphocytes (test code = Lymphocytes) 31.8 20.0-40.0 N [facility] NortheastUjkmfxnTUOHXECWCR1466-10-97 09:59:00 Test Item Value Reference Range Interpretation Comments Segs (test code = Segs) 54.5 45.0-75.0 N [facility] NortheastAcnqupkLXHKNFTIIN1998-73-61 09:59:00 Test Item Value Reference Range Interpretation Comments Monocytes (test code = Monocytes) 7.8 2.0-12.0 N [facility] NortheastMhhffxxDMMGPFYURW0259-84-05 09:59:00 Test Item Value Reference Range Interpretation Comments WBC X 10x3 (test code = WBC X 10x3) 8.7 3.7-10.4 N [facility] NortheastHalrbgmAIDLQXQJGH6547-11-02 09:59:00 Test Item Value Reference Range Interpretation Comments MCHC (test code = MCHC) 33.1 32.0-36.0 N [facility] NortheastGelixiiLLFAKPBMHR3118-15-29 09:59:00 Test Item Value Reference Range Interpretation Comments RBC X 10x6 (test code = RBC X 10x6) 2.83 4.20-5.40 L [facility] NortheastGjosxulAGVQJNSELV7336-81-90 09:59:00 Test Item Value Reference Range Interpretation Comments Platelet (test code = Platelet) 544 133-450 H [facility] NortheastWcbxgyjCBHQZLIGHW5481-95-53 09:59:00 Test Item Value Reference Range Interpretation Comments MPV (test code = MPV) 6.7 7.4-10.4 L [facility] NortheastKbmonwwIIEAMNFJQV2637-73-13 09:59:00 Test Item Value Reference Range Interpretation Comments RDW (test code = RDW) 14.4 11.5-14.5 N [facility] CenterYyoyyuzBVNKEXSVW2687-57-14 09:59:00 Test Item Value Reference Range Interpretation Comments AGAP (test code = AGAP) 13.3 10.0-20.0 N [facility] CenterJqymwpkVYWCJLQWS3863-38-78 09:59:00 Test Item Value Reference Range Interpretation Comments Glucose Lvl (test code = Glucose Lvl) 119 70-99 H [facility] CenterYrvwdagXMMWKIUOR2081-93-08 09:59:00 Test Item Value Reference Range Interpretation Comments Chloride Lvl (test code = Chloride Lvl) 107 95-109 N [facility] CenterWbcwfyxWKXSXOWOM4548-28-14 09:59:00 Test Item Value Reference Range Interpretation Comments Potassium Lvl (test code = Potassium 4.3 3.5-5.1 N Lvl) [facility] CenterRmlfyzkSBAHYIODB8078-39-91 09:59:00 Test Item Value Reference Range Interpretation Comments BUN (test code = BUN) 26 7-22 [facility]JeyisziEMWQEFDVX9921-55-52 09:59:00 Test Item Value Reference Range Interpretation Comments Sodium Lvl (test code = Sodium Lvl) 141 135-145 N [facility] CenterTqbthbiVGTEHSFRZ6731-78-80 09:59:00 Test Item Value Reference Range Interpretation Comments Creatinine Lvl (test code = Creatinine 1.2 0.5-1.4 N Lvl) [facility]UadeewvMHEQQDEODH9941-34-14 09:59:00 Test Item Value Reference Range Interpretation Comments Hgb (test code = Hgb) 8.5 12.0-16.0 [facility] CenterOahfwqsEECDZIWTO1811-15-82 09:59:00 Test Item Value Reference Range Interpretation Comments Calcium Lvl (test code = Calcium Lvl) 8.2 8.5-10.5 L [facility] CenterUqayhqgZQAMGCHHB0640-55-11 09:59:00 Test Item Value Reference Range Interpretation Comments CO2 (test code = CO2) 25 24-32 N [facility] CenterNxrytssFTMAKRGLU1383-47-37 09:59:00 Test Item Value Reference Range Interpretation Comments eGFR (test code = eGFR) 43 [facility] NortheastObvidaeKUJKYRUEIZ8076-24-89 09:59:00 Test Item Value Reference Range Interpretation Comments INR (test code = INR) 2.04 0.85-1.17 H [facility] NortheastSqpqdllQNCLOBHSQM2029-59-47 09:59:00 Test Item Value Reference Range Interpretation Comments PROTIME (test code = PROTIME) 22.7 s 12.0-14.7 H [facility] NortheastDolvhfuDATXTUQAOH8967-27-08 09:59:00 Test Item Value Reference Range Interpretation Comments Basophils # (test code 0.1 See_Comment N [Aut omated message] The = Basophils #) system which generated this result tra nsmitted reference range : <=0.2. The reference r andreia was not used to int erpret this result as normal/abnormal . [facility] NortheastWroygcpFQYFFNFLQE6757-93-82 09:59:00 Test Item Value Reference Range Interpretation Comments Eosinophils # (test code 0.4 See_Comment N [A utomated message] The = Eosinophils #) system whic h generated this result tra nsmitted reference range : <=0.5. The reference r andreia was not used to int erpret this result as normal/abnormal . [facility] NortheastJzlklcxQWYUMSNTMQ5928-71-06 09:59:00 Test Item Value Reference Range Interpretation Comments Monocytes # (test code 0.7 See_Comment N [Aut omated message] The = Monocytes #) system which generated this result tra nsmitted reference range : <=0.8. The reference r andreia was not used to int erpret this result as normal/abnormal . [facility] NortheastLohrgklATNVVJBNYQ4933-87-16 09:59:00 Test Item Value Reference Range Interpretation Comments Lymphocytes # (test code = Lymphocytes 2.7 1.0-5.5 N #) [facility] NortheastXmfxcwmPEHDVGAIWA5528-58-88 09:59:00 Test Item Value Reference Range Interpretation Comments Segs-Bands # (test code = Segs-Bands #) 4.7 1.5-8.1 N [facility] NortheastKntfypxJCFMQEZXTI6418-60-78 09:59:00 Test Item Value Reference Range Interpretation Comments MCH (test code = MCH) 30.2 pg 27.0-31.0 N [facility] NortheastEpphlctCQJAUIECQB8912-16-83 09:59:00 Test Item Value Reference Range Interpretation Comments Basophils (test code = 0.8 See_Comment N [Aut omated message] The Basophils) system which ge nerated this result tra nsmitted reference range : <=1.0. The reference r andreia was not used to int erpret this result as normal/abnormal . [facility] NortheastIyrmxkmGCIOXNDJGV9966-21-12 09:59:00 Test Item Value Reference Range Interpretation Comments Eosinophils (test code = 5.1 See_Comment H [A utomated message] The Eosinophils) system which ge nerated this result tra nsmitted reference range : <=4.0. The reference r andreia was not used to int erpret this result as normal/abnormal . [facility] NortheastCixidcbEAXVUBPHJV6389-42-75 09:59:00 Test Item Value Reference Range Interpretation Comments Lymphocytes (test code = Lymphocytes) 31.8 20.0-40.0 N [facility] NortheastKogrzmvJLBBILGZQS2043-56-92 09:59:00 Test Item Value Reference Range Interpretation Comments Segs (test code = Segs) 54.5 45.0-75.0 N [facility] NortheastWygkyphVEAGVLKTOJ0869-24-38 09:59:00 Test Item Value Reference Range Interpretation Comments Monocytes (test code = Monocytes) 7.8 2.0-12.0 N [facility] NortheastOvfxrkxCBXYFNYUYS8831-76-10 09:59:00 Test Item Value Reference Range Interpretation Comments WBC X 10x3 (test code = WBC X 10x3) 8.7 3.7-10.4 N [facility] NortheastMliwwcmRIXILOIHLI5895-08-90 09:59:00 Test Item Value Reference Range Interpretation Comments MCHC (test code = MCHC) 33.1 32.0-36.0 N [facility] NortheastXcbvubwIJLSBATPGV7625-03-29 09:59:00 Test Item Value Reference Range Interpretation Comments RBC X 10x6 (test code = RBC X 10x6) 2.83 4.20-5.40 L [facility] NortheastJthndcwEVGTGAUAHR2977-90-69 09:59:00 Test Item Value Reference Range Interpretation Comments Platelet (test code = Platelet) 544 133-450 H [facility] NortheastIlswdbuBEKLDFJVBA9744-63-41 09:59:00 Test Item Value Reference Range Interpretation Comments MPV (test code = MPV) 6.7 7.4-10.4 L [facility] NortheastUzpnwcdALPLOORBHV1242-29-58 09:59:00 Test Item Value Reference Range Interpretation Comments Hct (test code = Hct) 25.8 36.0-48.0 L [facility] NortheastUcfvbckUDEWXXHHAW5804-04-60 09:59:00 Test Item Value Reference Range Interpretation Comments RDW (test code = RDW) 14.4 11.5-14.5 N [facility] NortheastNegkehqEWIMUEKTKH8133-54-63 09:59:00 Test Item Value Reference Range Interpretation Comments Hgb (test code = Hgb) 8.5 12.0-16.0 L [facility] NortheastIkehqizWJQXMOLRNP2612-68-45 09:59:00 Test Item Value Reference Range Interpretation Comments MCH (test code = MCH) 30.2 pg 27.0-31.0 N [facility] NortheastBqtjlvsVREVOLXPQI1697-96-91 09:59:00 Test Item Value Reference Range Interpretation Comments Hct (test code = Hct) 25.8 36.0-48.0 L [facility] NortheastXlmdrgkLELMWMKLQD5284-42-31 09:59:00 Test Item Value Reference Range Interpretation Comments MCV (test code = MCV) 91.2 81.0-99.0 N [facility] NortheastYcnhgfyVLBPYVHLCI5046-03-49 09:59:00 Test Item Value Reference Range Interpretation Comments MCV (test code = MCV) 91.2 81.0-99.0 N [facility] CenterJurtqypDJZOALKVS0972-58-06 09:59:00 Test Item Value Reference Range Interpretation Comments AGAP (test code = AGAP) 13.3 10.0-20.0 N [facility] CenterNblkkmxWYPQTYKNF2914-14-37 09:59:00 Test Item Value Reference Range Interpretation Comments Glucose Lvl (test code = Glucose Lvl) 119 70-99 H [facility] CenterJbausziGDNCKXFUE5586-63-85 09:59:00 Test Item Value Reference Range Interpretation Comments Chloride Lvl (test code = Chloride Lvl) 107 95-109 N [facility] CenterWobblxvRSIHYXOUJ2869-98-45 09:59:00 Test Item Value Reference Range Interpretation Comments Potassium Lvl (test code = Potassium 4.3 3.5-5.1 N Lvl) [facility] CenterTmdbgccLLYOMPUPK6124-61-36 09:59:00 Test Item Value Reference Range Interpretation Comments BUN (test code = BUN) 26 7-22 H [facility] CenterUxmtabtZBPNWDBII2363-90-46 09:59:00 Test Item Value Reference Range Interpretation Comments Sodium Lvl (test code = Sodium Lvl) 141 135-145 N [facility] CenterFyudietDKJYITZGH2691-09-34 09:59:00 Test Item Value Reference Range Interpretation Comments Creatinine Lvl (test code = Creatinine 1.2 0.5-1.4 N Lvl) [facility] CenterGwktuuoMUCCHAVBM1043-05-35 09:59:00 Test Item Value Reference Range Interpretation Comments Calcium Lvl (test code = Calcium Lvl) 8.2 8.5-10.5 L [facility] CenterDoynjtaJXEKIGSSZ0343-05-97 09:59:00 Test Item Value Reference Range Interpretation Comments CO2 (test code = CO2) 25 24-32 N [facility] CenterKinfwweHUVVMNHQR4429-55-60 09:59:00 Test Item Value Reference Range Interpretation Comments eGFR (test code = eGFR) 43 [facility] NortheastQrzodyqNKLUJVNHCP8453-18-84 09:59:00 Test Item Value Reference Range Interpretation Comments INR (test code = INR) 2.04 0.85-1.17 H [facility] NortheastByxiuarZXSTVSKOXZ0493-59-84 09:59:00 Test Item Value Reference Range Interpretation Comments PROTIME (test code = PROTIME) 22.7 s 12.0-14.7 H [facility] NortheastOmpynwmZKBUUHBGFA2405-25-17 09:59:00 Test Item Value Reference Range Interpretation Comments Basophils # (test code 0.1 See_Comment N [Aut omated message] The = Basophils #) system which generated this result tra nsmitted reference range : <=0.2. The reference r andreia was not used to int erpret this result as normal/abnormal . [facility] NortheastWmfmvfvOUSMIMFYHT2310-16-97 09:59:00 Test Item Value Reference Range Interpretation Comments Eosinophils # (test code 0.4 See_Comment N [A utomated message] The = Eosinophils #) system whic h generated this result tra nsmitted reference range : <=0.5. The reference r andreia was not used to int erpret this result as normal/abnormal . [facility] NortheastUbkjuikSLWXODVQZT9073-00-54 09:59:00 Test Item Value Reference Range Interpretation Comments Monocytes # (test code 0.7 See_Comment N [Aut omated message] The = Monocytes #) system which generated this result tra nsmitted reference range : <=0.8. The reference r andreia was not used to int erpret this result as normal/abnormal . [facility] NortheastCrxhuzsJZPCLXMLKP0969-40-58 09:59:00 Test Item Value Reference Range Interpretation Comments Lymphocytes # (test code = Lymphocytes 2.7 1.0-5.5 N #) [facility] NortheastYmvnkfpCZGSLTLJLU5883-59-00 09:59:00 Test Item Value Reference Range Interpretation Comments Segs-Bands # (test code = Segs-Bands #) 4.7 1.5-8.1 N [facility] NortheastLzgkcitDDTIDXUGRO8271-13-97 09:59:00 Test Item Value Reference Range Interpretation Comments Basophils (test code = 0.8 See_Comment N [Aut omated message] The Basophils) system which ge nerated this result tra nsmitted reference range : <=1.0. The reference r andreia was not used to int erpret this result as normal/abnormal . [facility] NortheastRfmzrfqHLCUOLWPUU7557-04-18 09:59:00 Test Item Value Reference Range Interpretation Comments Eosinophils (test code = 5.1 See_Comment H [A utomated message] The Eosinophils) system which ge nerated this result tra nsmitted reference range : <=4.0. The reference r andreia was not used to int erpret this result as normal/abnormal . [facility] NortheastSkpodfxFEIBXKIICN3312-16-35 09:59:00 Test Item Value Reference Range Interpretation Comments Lymphocytes (test code = Lymphocytes) 31.8 20.0-40.0 N [facility] NortheastFjxjrtfQAIJYSFLYE5107-59-94 09:59:00 Test Item Value Reference Range Interpretation Comments Segs (test code = Segs) 54.5 45.0-75.0 N [facility] NortheastCunwsqaUVZVMMLTYC9340-27-60 09:59:00 Test Item Value Reference Range Interpretation Comments Monocytes (test code = Monocytes) 7.8 2.0-12.0 N [facility] NortheastRnyegbjEWUXFCFYTU7891-55-49 09:59:00 Test Item Value Reference Range Interpretation Comments WBC X 10x3 (test code = WBC X 10x3) 8.7 3.7-10.4 N [facility] NortheastBugnbxkJFAOJJVLMD0431-57-38 09:59:00 Test Item Value Reference Range Interpretation Comments MCHC (test code = MCHC) 33.1 32.0-36.0 N [facility] NortheastXkfgywwGCIZRJJSOL4069-80-67 09:59:00 Test Item Value Reference Range Interpretation Comments RBC X 10x6 (test code = RBC X 10x6) 2.83 4.20-5.40 L [facility] NortheastLmgemfnGWLUPJTXDH4123-17-19 09:59:00 Test Item Value Reference Range Interpretation Comments Platelet (test code = Platelet) 544 133-450 H [facility] NortheastJwhazqdDAQLUBLKMU9125-69-74 09:59:00 Test Item Value Reference Range Interpretation Comments MPV (test code = MPV) 6.7 7.4-10.4 L [facility] NortheastYuasyqpLIDAYJKWEZ4079-23-95 09:59:00 Test Item Value Reference Range Interpretation Comments RDW (test code = RDW) 14.4 11.5-14.5 N [facility] NortheastHziejhcKWBSKDMCTF0307-85-69 09:59:00 Test Item Value Reference Range Interpretation Comments Hgb (test code = Hgb) 8.5 12.0-16.0 L [facility] NortheastMqeijxkWHAZTFMRWG1588-76-45 09:59:00 Test Item Value Reference Range Interpretation Comments MCH (test code = MCH) 30.2 pg 27.0-31.0 N [facility] NortheastUkmxenxXLRPVWUPKC2590-16-04 09:59:00 Test Item Value Reference Range Interpretation Comments Hct (test code = Hct) 25.8 36.0-48.0 L [facility] NortheastIjfxfbrIXJGGXFMJT5224-72-64 09:59:00 Test Item Value Reference Range Interpretation Comments MCV (test code = MCV) 91.2 81.0-99.0 N [facility] CenterTllddraIXXSYSSQN5693-04-41 09:59:00 Test Item Value Reference Range Interpretation Comments AGAP (test code = AGAP) 13.3 10.0-20.0 N [facility] CenterOreimzcMKXONBTZK5770-57-11 09:59:00 Test Item Value Reference Range Interpretation Comments Glucose Lvl (test code = Glucose Lvl) 119 70-99 H [facility] CenterJxyvxzeLRHHEWGOU0849-07-89 09:59:00 Test Item Value Reference Range Interpretation Comments Chloride Lvl (test code = Chloride Lvl) 107 95-109 N [facility] CenterHsrrkyfASBRUZVGH5310-33-45 09:59:00 Test Item Value Reference Range Interpretation Comments Potassium Lvl (test code = Potassium 4.3 3.5-5.1 N Lvl) [facility] CenterDmcypxoZHYLROXKQ0345-62-43 09:59:00 Test Item Value Reference Range Interpretation Comments BUN (test code = BUN) 26 7-22 H [facility] CenterQxykdwtQZXJXVZEE7766-48-84 09:59:00 Test Item Value Reference Range Interpretation Comments Sodium Lvl (test code = Sodium Lvl) 141 135-145 N [facility] CenterOncekzvJEKYRZNZA3436-40-31 09:59:00 Test Item Value Reference Range Interpretation Comments Creatinine Lvl (test code = Creatinine 1.2 0.5-1.4 N Lvl) [facility] CenterVrthonuWDDIQSNSW5934-01-81 09:59:00 Test Item Value Reference Range Interpretation Comments Calcium Lvl (test code = Calcium Lvl) 8.2 8.5-10.5 L [facility] CenterVcpddazNAGLHICPQ0839-13-53 09:59:00 Test Item Value Reference Range Interpretation Comments CO2 (test code = CO2) 25 24-32 N [facility] CenterEagqgczROJCTRWMV7193-31-37 09:59:00 Test Item Value Reference Range Interpretation Comments eGFR (test code = eGFR) 43 [facility] NortheastQlkrffuDHTMCWHIZT0792-66-42 09:59:00 Test Item Value Reference Range Interpretation Comments INR (test code = INR) 2.04 0.85-1.17 H [facility] NortheastRghmhwlHTTBOEWMSS5827-60-12 09:59:00 Test Item Value Reference Range Interpretation Comments PROTIME (test code = PROTIME) 22.7 s 12.0-14.7 H [facility] NortheastPvdnkujGVMCNCNOQA0393-84-12 09:59:00 Test Item Value Reference Range Interpretation Comments Basophils # (test code 0.1 See_Comment N [Aut omated message] The = Basophils #) system which generated this result tra nsmitted reference range : <=0.2. The reference r andreia was not used to int erpret this result as normal/abnormal . [facility] NortheastSzhxehhQSXLWRDFDU8765-73-10 09:59:00 Test Item Value Reference Range Interpretation Comments Eosinophils # (test code 0.4 See_Comment N [A utomated message] The = Eosinophils #) system whic h generated this result tra nsmitted reference range : <=0.5. The reference r andreia was not used to int erpret this result as normal/abnormal . [facility] NortheastUqonghyNLMBQPRWOP9279-47-22 09:59:00 Test Item Value Reference Range Interpretation Comments Monocytes # (test code 0.7 See_Comment N [Aut omated message] The = Monocytes #) system which generated this result tra nsmitted reference range : <=0.8. The reference r andreia was not used to int erpret this result as normal/abnormal . [facility] NortheastXnqokkiFHMFPGXGYI9430-33-16 09:59:00 Test Item Value Reference Range Interpretation Comments Lymphocytes # (test code = Lymphocytes 2.7 1.0-5.5 N #) [facility] NortheastNkhtqexXWVOMOHJEV5452-96-41 09:59:00 Test Item Value Reference Range Interpretation Comments Segs-Bands # (test code = Segs-Bands #) 4.7 1.5-8.1 N [facility] NortheastTlclplvYYBNQCCWYP4054-69-01 09:59:00 Test Item Value Reference Range Interpretation Comments Basophils (test code = 0.8 See_Comment N [Aut omated message] The Basophils) system which ge nerated this result tra nsmitted reference range : <=1.0. The reference r andreia was not used to int erpret this result as normal/abnormal . [facility] NortheastWrkeirkKCEYQDPVCC0813-85-04 09:59:00 Test Item Value Reference Range Interpretation Comments Eosinophils (test code = 5.1 See_Comment H [A utomated message] The Eosinophils) system which ge nerated this result tra nsmitted reference range : <=4.0. The reference r andreia was not used to int erpret this result as normal/abnormal . [facility] NortheastMysvpuvVTISMJQAPK6861-12-56 09:59:00 Test Item Value Reference Range Interpretation Comments Lymphocytes (test code = Lymphocytes) 31.8 20.0-40.0 N [facility] NortheastEdmqpjyDSAWXZCOOI8054-44-99 09:59:00 Test Item Value Reference Range Interpretation Comments Segs (test code = Segs) 54.5 45.0-75.0 N [facility] NortheastPszczyhGICLJIPHTS3860-16-99 09:59:00 Test Item Value Reference Range Interpretation Comments Monocytes (test code = Monocytes) 7.8 2.0-12.0 N [facility] NortheastGnkybxfENKCBOPUPP5201-21-07 09:59:00 Test Item Value Reference Range Interpretation Comments WBC X 10x3 (test code = WBC X 10x3) 8.7 3.7-10.4 N [facility] NortheastHxulydeQRYRCRDNPF0911-19-94 09:59:00 Test Item Value Reference Range Interpretation Comments MCHC (test code = MCHC) 33.1 32.0-36.0 N [facility] NortheastDnwkatgEAPTQFVMEH6303-62-27 09:59:00 Test Item Value Reference Range Interpretation Comments RBC X 10x6 (test code = RBC X 10x6) 2.83 4.20-5.40 L [facility] NortheastRwvthulPTQDKZXJZY8416-01-96 09:59:00 Test Item Value Reference Range Interpretation Comments Platelet (test code = Platelet) 544 133-450 H [facility] NortheastIdzqzopHUFIGAUQIB2239-24-21 09:59:00 Test Item Value Reference Range Interpretation Comments MPV (test code = MPV) 6.7 7.4-10.4 L [facility] NortheastLwarsguEOJVMYNKNP3551-32-36 09:59:00 Test Item Value Reference Range Interpretation Comments RDW (test code = RDW) 14.4 11.5-14.5 N [facility] NortheastReuyphpODZPURSKHV2267-28-32 09:59:00 Test Item Value Reference Range Interpretation Comments Hgb (test code = Hgb) 8.5 12.0-16.0 L [facility] NortheastVzcieunBBJYVGXLNK5246-49-02 09:59:00 Test Item Value Reference Range Interpretation Comments MCH (test code = MCH) 30.2 pg 27.0-31.0 N [facility] NortheastVxbgnzmSZQENSKEGN3221-66-66 09:59:00 Test Item Value Reference Range Interpretation Comments Hct (test code = Hct) 25.8 36.0-48.0 L [facility] NortheastLfidvxxJETLOVVARZ6716-99-43 09:59:00 Test Item Value Reference Range Interpretation Comments MCV (test code = MCV) 91.2 81.0-99.0 N [facility] CenterXoxzusrGMGCHQRWZ2420-78-18 09:59:00 Test Item Value Reference Range Interpretation Comments AGAP (test code = AGAP) 13.3 10.0-20.0 N [facility] CenterTwcfwnuJTNMHICPG9277-90-54 09:59:00 Test Item Value Reference Range Interpretation Comments Glucose Lvl (test code = Glucose Lvl) 119 70-99 H [facility] CenterChtwomeTDLNUXSEV5187-83-41 09:59:00 Test Item Value Reference Range Interpretation Comments Chloride Lvl (test code = Chloride Lvl) 107 95-109 N [facility] CenterQsaomkzSAADPCXJM6401-07-54 09:59:00 Test Item Value Reference Range Interpretation Comments Potassium Lvl (test code = Potassium 4.3 3.5-5.1 N Lvl) [facility] CenterSdlmxgiIPOZUVAFO2390-54-25 09:59:00 Test Item Value Reference Range Interpretation Comments BUN (test code = BUN) 26 7-22 H [facility] CenterIirmyqaRQVESAYWV1888-50-65 09:59:00 Test Item Value Reference Range Interpretation Comments Sodium Lvl (test code = Sodium Lvl) 141 135-145 N [facility] CenterCkxhzjvVOQOFNRIS9627-53-41 09:59:00 Test Item Value Reference Range Interpretation Comments Creatinine Lvl (test code = Creatinine 1.2 0.5-1.4 N Lvl) [facility] CenterLapznrnHRTGKLINI0270-13-38 09:59:00 Test Item Value Reference Range Interpretation Comments Calcium Lvl (test code = Calcium Lvl) 8.2 8.5-10.5 L [facility] CenterSskbiimZUAIVXYOV2646-89-54 09:59:00 Test Item Value Reference Range Interpretation Comments CO2 (test code = CO2) 25 24-32 N [facility] CenterCtzernoDXODIICIX5115-50-14 09:59:00 Test Item Value Reference Range Interpretation Comments eGFR (test code = eGFR) 43 [facility] NortheastUradijgUQGKJCUYBR8133-40-95 09:59:00 Test Item Value Reference Range Interpretation Comments INR (test code = INR) 2.04 0.85-1.17 H [facility] NortheastLyhrggfHAXNXJWVQF3124-58-23 09:59:00 Test Item Value Reference Range Interpretation Comments PROTIME (test code = PROTIME) 22.7 s 12.0-14.7 H [facility] NortheastWuchikiPOCVIQTEHI6373-14-75 09:59:00 Test Item Value Reference Range Interpretation Comments Basophils # (test code 0.1 See_Comment N [Aut omated message] The = Basophils #) system which generated this result tra nsmitted reference range : <=0.2. The reference r andreia was not used to int erpret this result as normal/abnormal . [facility] NortheastPvpfwebAMCHAUYQWL1107-75-39 09:59:00 Test Item Value Reference Range Interpretation Comments Eosinophils # (test code 0.4 See_Comment N [A utomated message] The = Eosinophils #) system whic h generated this result tra nsmitted reference range : <=0.5. The reference r andreia was not used to int erpret this result as normal/abnormal . [facility] NortheastLdkpebxOOSVRANNEU0547-96-22 09:59:00 Test Item Value Reference Range Interpretation Comments Monocytes # (test code 0.7 See_Comment N [Aut omated message] The = Monocytes #) system which generated this result tra nsmitted reference range : <=0.8. The reference r andreia was not used to int erpret this result as normal/abnormal . [facility] NortheastShmrvsjZXWJVYCCRF1748-22-99 09:59:00 Test Item Value Reference Range Interpretation Comments Lymphocytes # (test code = Lymphocytes 2.7 1.0-5.5 N #) [facility] NortheastFhszqdrCMEPCSHVVI7744-88-68 09:59:00 Test Item Value Reference Range Interpretation Comments Segs-Bands # (test code = Segs-Bands #) 4.7 1.5-8.1 N [facility] NortheastTkymjrtXSWVXQIZLP7403-57-25 09:59:00 Test Item Value Reference Range Interpretation Comments Basophils (test code = 0.8 See_Comment N [Aut omated message] The Basophils) system which ge nerated this result tra nsmitted reference range : <=1.0. The reference r andreia was not used to int erpret this result as normal/abnormal . [facility] NortheastEjkixvcJUPONIZMVQ7676-83-93 09:59:00 Test Item Value Reference Range Interpretation Comments Eosinophils (test code = 5.1 See_Comment H [A utomated message] The Eosinophils) system which ge nerated this result tra nsmitted reference range : <=4.0. The reference r andreia was not used to int erpret this result as normal/abnormal . [facility] NortheastWcxuvqmKJBFBUKIUY0140-25-78 09:59:00 Test Item Value Reference Range Interpretation Comments Lymphocytes (test code = Lymphocytes) 31.8 20.0-40.0 N [facility] NortheastRrhpxhmBZFNMJEZZU7512-67-97 09:59:00 Test Item Value Reference Range Interpretation Comments Segs (test code = Segs) 54.5 45.0-75.0 N [facility] NortheastLhyeulnNEXPYGVJKX5176-52-45 09:59:00 Test Item Value Reference Range Interpretation Comments Monocytes (test code = Monocytes) 7.8 2.0-12.0 N [facility] NortheastFogpqmrADKWRXFMPX3220-93-00 09:59:00 Test Item Value Reference Range Interpretation Comments WBC X 10x3 (test code = WBC X 10x3) 8.7 3.7-10.4 N [facility] NortheastVjsvddyULZIJLRCRR6807-79-81 09:59:00 Test Item Value Reference Range Interpretation Comments MCHC (test code = MCHC) 33.1 32.0-36.0 N [facility] NortheastNvdbndoNUQULIRUSE4839-36-50 09:59:00 Test Item Value Reference Range Interpretation Comments RBC X 10x6 (test code = RBC X 10x6) 2.83 4.20-5.40 L [facility] NortheastXkwfllmKDQRGBNLVC9343-19-96 09:59:00 Test Item Value Reference Range Interpretation Comments Platelet (test code = Platelet) 544 133-450 H [facility] NortheastIagsiihDNPBBYQWCD6877-85-12 09:59:00 Test Item Value Reference Range Interpretation Comments MPV (test code = MPV) 6.7 7.4-10.4 [facility]SklqsmlQFCKASQHBP2244-90-40 09:59:00 Test Item Value Reference Range Interpretation Comments RDW (test code = RDW) 14.4 11.5-14.5 N [facility]DhwxffmYAZOFJYHPX7968-16-04 09:59:00 Test Item Value Reference Range Interpretation Comments Hgb (test code = Hgb) 8.5 12.0-16.0 L [facility] NortheastEtoubtyTQBDTGORGJ1785-31-65 09:59:00 Test Item Value Reference Range Interpretation Comments MCH (test code = MCH) 30.2 pg 27.0-31.0 N [facility]ZccwmgzPRSFVKDZRP4691-61-12 09:59:00 Test Item Value Reference Range Interpretation Comments Hct (test code = Hct) 25.8 36.0-48.0 L [facility] NortheastOaxquqpASQFCMBUEJ1478-47-69 09:59:00 Test Item Value Reference Range Interpretation Comments MCV (test code = MCV) 91.2 81.0-99.0 [facility]TpeebhzFTPIHUYTF5705-08-64 09:59:00 Test Item Value Reference Range Interpretation Comments AGAP (test code = AGAP) 13.3 10.0-20.0 N [facility] CenterIbwqjrtKDKWLYLVN5279-08-43 09:59:00 Test Item Value Reference Range Interpretation Comments Glucose Lvl (test code = Glucose Lvl) 119 70-99 H [facility] CenterZdqebpwKBWRNGOOV4885-32-96 09:59:00 Test Item Value Reference Range Interpretation Comments Chloride Lvl (test code = Chloride Lvl) 107 95-109 N [facility] CenterMprswaeXSMOYKWQV4482-54-87 09:59:00 Test Item Value Reference Range Interpretation Comments Potassium Lvl (test code = Potassium 4.3 3.5-5.1 N Lvl) [facility] CenterHsyzlkiGCZQWEMRO9140-16-62 09:59:00 Test Item Value Reference Range Interpretation Comments BUN (test code = BUN) 26 7-22 H [facility] CenterRtchkbgRRDCRQXMA4606-55-72 09:59:00 Test Item Value Reference Range Interpretation Comments Sodium Lvl (test code = Sodium Lvl) 141 135-145 N [facility] CenterOubktteZVIFPXMAH6003-21-55 09:59:00 Test Item Value Reference Range Interpretation Comments Creatinine Lvl (test code = Creatinine 1.2 0.5-1.4 N Lvl) [facility] CenterBmoccqmVTGFAIKAM2849-56-75 09:59:00 Test Item Value Reference Range Interpretation Comments Calcium Lvl (test code = Calcium Lvl) 8.2 8.5-10.5 L [facility] CenterRvuqfsuUDXSAUPWZ4007-43-19 09:59:00 Test Item Value Reference Range Interpretation Comments CO2 (test code = CO2) 25 24-32 N [facility] CenterUvxmxdwTNCTQPDHE3108-59-31 09:59:00 Test Item Value Reference Range Interpretation Comments eGFR (test code = eGFR) 43 [facility]IawtrkbGJAUVINSBU5584-67-32 09:59:00 Test Item Value Reference Range Interpretation Comments INR (test code = INR) 2.04 0.85-1.17 H [facility]NdywxhwZDYQCHKBFW7027-91-83 09:59:00 Test Item Value Reference Range Interpretation Comments PROTIME (test code = PROTIME) 22.7 s 12.0-14.7 H [facility]NblzfkmIEGVRFVTXL0701-88-07 09:59:00 Test Item Value Reference Range Interpretation Comments Basophils # (test code 0.1 See_Comment N [Aut omated message] The = Basophils #) system which generated this result tra nsmitted reference range : <=0.2. The reference r andreia was not used to int erpret this result as normal/abnormal . [facility] NortheastPbblusiBQJKVHRJTA2958-69-38 09:59:00 Test Item Value Reference Range Interpretation Comments Eosinophils # (test code 0.4 See_Comment N [A utomated message] The = Eosinophils #) system whic h generated this result tra nsmitted reference range : <=0.5. The reference r andreia was not used to int erpret this result as normal/abnormal . [facility] NortheastYrdhmdsSEIRAJOUNR8994-99-82 09:59:00 Test Item Value Reference Range Interpretation Comments Monocytes # (test code 0.7 See_Comment N [Aut omated message] The = Monocytes #) system which generated this result tra nsmitted reference range : <=0.8. The reference r andreia was not used to int erpret this result as normal/abnormal . [facility] NortheastFnslmwbHLEXMRQHPS7235-71-69 09:59:00 Test Item Value Reference Range Interpretation Comments Lymphocytes # (test code = Lymphocytes 2.7 1.0-5.5 N #) [facility]RcymgdyFNFPGXMOOF0087-60-01 09:59:00 Test Item Value Reference Range Interpretation Comments Segs-Bands # (test code = Segs-Bands #) 4.7 1.5-8.1 N [facility] NortheastJwklalrNZGWLSYSMM9421-60-00 09:59:00 Test Item Value Reference Range Interpretation Comments Basophils (test code = 0.8 See_Comment N [Aut omated message] The Basophils) system which ge nerated this result tra nsmitted reference range : <=1.0. The reference r andreia was not used to int erpret this result as normal/abnormal . [facility] NortheastQwdalfuUATRPIOAYH8237-21-88 09:59:00 Test Item Value Reference Range Interpretation Comments Eosinophils (test code = 5.1 See_Comment H [A utomated message] The Eosinophils) system which ge nerated this result tra nsmitted reference range : <=4.0. The reference r andreia was not used to int erpret this result as normal/abnormal . [facility] NortheastLgodhttPZDJKLXXPA3176-90-27 09:59:00 Test Item Value Reference Range Interpretation Comments Lymphocytes (test code = Lymphocytes) 31.8 20.0-40.0 N [facility] NortheastVhmbxdmEMFXUZWWRW2516-30-53 09:59:00 Test Item Value Reference Range Interpretation Comments Segs (test code = Segs) 54.5 45.0-75.0 N [facility] NortheastRcjylclUDRTQDHARI6758-64-43 09:59:00 Test Item Value Reference Range Interpretation Comments Monocytes (test code = Monocytes) 7.8 2.0-12.0 N [facility] NortheastPjqktxaUSGXQHIIQC2857-44-27 09:59:00 Test Item Value Reference Range Interpretation Comments WBC X 10x3 (test code = WBC X 10x3) 8.7 3.7-10.4 N [facility] NortheastNdonbouWOEGQZZHJX4257-75-81 09:59:00 Test Item Value Reference Range Interpretation Comments MCHC (test code = MCHC) 33.1 32.0-36.0 N [facility] NortheastGveidgpJOBFHNKMDP4269-28-90 09:59:00 Test Item Value Reference Range Interpretation Comments RBC X 10x6 (test code = RBC X 10x6) 2.83 4.20-5.40 L [facility] NortheastPwikymwYGMNQTKMOF5207-14-34 09:59:00 Test Item Value Reference Range Interpretation Comments Platelet (test code = Platelet) 544 133-450 H [facility] NortheastDqdmuetBRBZAKTGLK0998-28-45 09:59:00 Test Item Value Reference Range Interpretation Comments MPV (test code = MPV) 6.7 7.4-10.4 L [facility] NortheastAvtbvyxIUUCDCNCNW6706-22-50 09:59:00 Test Item Value Reference Range Interpretation Comments RDW (test code = RDW) 14.4 11.5-14.5 N [facility] NortheastDceidjoAZQRSLVNSX8430-63-08 09:59:00 Test Item Value Reference Range Interpretation Comments Hgb (test code = Hgb) 8.5 12.0-16.0 L [facility] NortheastCbmndffHKLEXMGSOO3420-32-90 09:59:00 Test Item Value Reference Range Interpretation Comments MCH (test code = MCH) 30.2 pg 27.0-31.0 N [facility] NortheastFqzavyhMADLCJVCFO5494-83-13 09:59:00 Test Item Value Reference Range Interpretation Comments Hct (test code = Hct) 25.8 36.0-48.0 L [facility] NortheastKrdhsknNMRUJUQHTW4230-76-27 09:59:00 Test Item Value Reference Range Interpretation Comments MCV (test code = MCV) 91.2 81.0-99.0 N [facility] CenterOfifmhwUZTVTBTEZ3462-67-88 09:59:00 Test Item Value Reference Range Interpretation Comments AGAP (test code = AGAP) 13.3 10.0-20.0 N [facility] CenterPeifselMOCDBSVYV5430-94-85 09:59:00 Test Item Value Reference Range Interpretation Comments Glucose Lvl (test code = Glucose Lvl) 119 70-99 H [facility] CenterOegizchQQJKLWJRV0112-40-95 09:59:00 Test Item Value Reference Range Interpretation Comments Chloride Lvl (test code = Chloride Lvl) 107 95-109 N [facility] CenterVwqtrmmVXVBWREDN7300-95-41 09:59:00 Test Item Value Reference Range Interpretation Comments Potassium Lvl (test code = Potassium 4.3 3.5-5.1 N Lvl) [facility] CenterLkelvfmWAJYFYINV7404-73-75 09:59:00 Test Item Value Reference Range Interpretation Comments BUN (test code = BUN) 26 7-22 H [facility] CenterGpmbvblXVSRKYKNV7682-14-65 09:59:00 Test Item Value Reference Range Interpretation Comments Sodium Lvl (test code = Sodium Lvl) 141 135-145 N [facility] CenterSqllxzmFXRCQEROB9749-34-63 09:59:00 Test Item Value Reference Range Interpretation Comments Creatinine Lvl (test code = Creatinine 1.2 0.5-1.4 N Lvl) [facility] CenterVxadyltYWINJJRZL2889-87-27 09:59:00 Test Item Value Reference Range Interpretation Comments Calcium Lvl (test code = Calcium Lvl) 8.2 8.5-10.5 L [facility] CenterMyonnvhNSNNMWYUG9867-81-25 09:59:00 Test Item Value Reference Range Interpretation Comments CO2 (test code = CO2) 25 24-32 N [facility] CenterRdpauyrQNTUREQTQ0009-30-67 09:59:00 Test Item Value Reference Range Interpretation Comments eGFR (test code = eGFR) 43 [facility]SabjhsfEBAZEPVHLI5723-11-11 09:59:00 Test Item Value Reference Range Interpretation Comments INR (test code = INR) 2.04 0.85-1.17 [facility]PtgznzaYAHSNICPIA1375-52-25 09:59:00 Test Item Value Reference Range Interpretation Comments PROTIME (test code = PROTIME) 22.7 s 12.0-14.7 H [facility] NortheastCrplfadJMIMGLRVNG8668-70-58 09:59:00 Test Item Value Reference Range Interpretation Comments Basophils # (test code 0.1 See_Comment N [Aut omated message] The = Basophils #) system which generated this result tra nsmitted reference range : <=0.2. The reference r andreia was not used to int erpret this result as normal/abnormal . [facility] NortheastSexrmvxGFEOYZSIBE5076 09:59:00 Test Item Value Reference Range Interpretation Comments Eosinophils # (test code 0.4 See_Comment N [A utomated message] The = Eosinophils #) system whic h generated this result tra nsmitted reference range : <=0.5. The reference r andreia was not used to int erpret this result as normal/abnormal . [facility] NortheastIsqxxyeQOXRVODNRI7486-63-97 09:59:00 Test Item Value Reference Range Interpretation Comments Monocytes # (test code 0.7 See_Comment N [Aut omated message] The = Monocytes #) system which generated this result tra nsmitted reference range : <=0.8. The reference r andreia was not used to int erpret this result as normal/abnormal . [facility] NortheastRochyniKZVJCMJWJY4680-95-21 09:59:00 Test Item Value Reference Range Interpretation Comments Lymphocytes # (test code = Lymphocytes 2.7 1.0-5.5 N #) [facility]EltpnvbIDTUZSWUOQ3842-98-36 09:59:00 Test Item Value Reference Range Interpretation Comments Segs-Bands # (test code = Segs-Bands #) 4.7 1.5-8.1 N [facility] NortheastYncstovFFLRCGLYBP2840-03-70 09:59:00 Test Item Value Reference Range Interpretation Comments Basophils (test code = 0.8 See_Comment N [Aut omated message] The Basophils) system which ge nerated this result tra nsmitted reference range : <=1.0. The reference r andreia was not used to int erpret this result as normal/abnormal . [facility] NortheastWsvnbrwSDRDQYPXJQ7421-35-38 09:59:00 Test Item Value Reference Range Interpretation Comments Eosinophils (test code = 5.1 See_Comment H [A utomated message] The Eosinophils) system which ge nerated this result tra nsmitted reference range : <=4.0. The reference r andreia was not used to int erpret this result as normal/abnormal . [facility] NortheastHoouaurUWZVXHFSIG0897-28-10 09:59:00 Test Item Value Reference Range Interpretation Comments Lymphocytes (test code = Lymphocytes) 31.8 20.0-40.0 N [facility] NortheastJvkfucbTZNFGBAITL4630-54-35 09:59:00 Test Item Value Reference Range Interpretation Comments Segs (test code = Segs) 54.5 45.0-75.0 N [facility] NortheastQlamzmvBFRFOUWXHL4750-35-56 09:59:00 Test Item Value Reference Range Interpretation Comments Monocytes (test code = Monocytes) 7.8 2.0-12.0 N [facility] NortheastNhywpvmADDVEHSILC1792-53-49 09:59:00 Test Item Value Reference Range Interpretation Comments WBC X 10x3 (test code = WBC X 10x3) 8.7 3.7-10.4 N [facility] NortheastJghfxgbFMZUNSEYIP6662-76-54 09:59:00 Test Item Value Reference Range Interpretation Comments MCHC (test code = MCHC) 33.1 32.0-36.0 N [facility] NortheastIrackncYWUPUVVWSG2476-00-45 09:59:00 Test Item Value Reference Range Interpretation Comments RBC X 10x6 (test code = RBC X 10x6) 2.83 4.20-5.40 L [facility] NortheastQllibduMTGKVCMJNP1149-43-51 09:59:00 Test Item Value Reference Range Interpretation Comments Platelet (test code = Platelet) 544 133-450 H [facility] NortheastWhxhmygVFKWWYWQSQ8664-70-65 09:59:00 Test Item Value Reference Range Interpretation Comments MPV (test code = MPV) 6.7 7.4-10.4 L [facility] NortheastOirmsmcKOEMEVFHNO6398-61-49 09:59:00 Test Item Value Reference Range Interpretation Comments RDW (test code = RDW) 14.4 11.5-14.5 N [facility] NortheastVnpopiyDUKCSRXITZ6420-01-79 09:59:00 Test Item Value Reference Range Interpretation Comments Hgb (test code = Hgb) 8.5 12.0-16.0 L [facility] NortheastJwyggdzZHNUWQPBJQ1376-19-31 09:59:00 Test Item Value Reference Range Interpretation Comments MCH (test code = MCH) 30.2 pg 27.0-31.0 N [facility] NortheastAltonokLOEARQGVNA8213-59-52 09:59:00 Test Item Value Reference Range Interpretation Comments Hct (test code = Hct) 25.8 36.0-48.0 L [facility] NortheastOmgjrkjNNQSMNKUVH5756-24-28 09:59:00 Test Item Value Reference Range Interpretation Comments MCV (test code = MCV) 91.2 81.0-99.0 N [facility] CenterSlzeitaFOYAQMWIN5773-83-88 09:59:00 Test Item Value Reference Range Interpretation Comments AGAP (test code = AGAP) 13.3 10.0-20.0 N [facility] CenterQeiiteeZODARLIHY4218-16-22 09:59:00 Test Item Value Reference Range Interpretation Comments Glucose Lvl (test code = Glucose Lvl) 119 70-99 H [facility] CenterAipjsmwLDXABNBHR1377-86-07 09:59:00 Test Item Value Reference Range Interpretation Comments Chloride Lvl (test code = Chloride Lvl) 107 95-109 N [facility] CenterGbxwgdcUXSZOJVIK3235-74-62 09:59:00 Test Item Value Reference Range Interpretation Comments Potassium Lvl (test code = Potassium 4.3 3.5-5.1 N Lvl) [facility] CenterOfyaapbTTZCTJQUD5690-44-79 09:59:00 Test Item Value Reference Range Interpretation Comments BUN (test code = BUN) 26 7-22 H [facility] CenterAdityxsKXSLLWPAF9000-17-62 09:59:00 Test Item Value Reference Range Interpretation Comments Sodium Lvl (test code = Sodium Lvl) 141 135-145 N [facility] CenterWkjykzoTDVROMWYK8816-58-37 09:59:00 Test Item Value Reference Range Interpretation Comments Creatinine Lvl (test code = Creatinine 1.2 0.5-1.4 N Lvl) [facility] CenterUnlpydqAHZNZATXI0065-90-71 09:59:00 Test Item Value Reference Range Interpretation Comments Calcium Lvl (test code = Calcium Lvl) 8.2 8.5-10.5 L [facility] CenterWtzxetlAAPRICTHX7969-32-52 09:59:00 Test Item Value Reference Range Interpretation Comments CO2 (test code = CO2) 25 24-32 N [facility] CenterLyfpokcQNNTXCYGY3123-40-31 09:59:00 Test Item Value Reference Range Interpretation Comments eGFR (test code = eGFR) 43 [facility] NortheastVuhabcaNGWHPNPXBB2699-99-12 09:59:00 Test Item Value Reference Range Interpretation Comments INR (test code = INR) 2.04 0.85-1.17 H [facility] NortheastSfmtuyrIGKOSVIXBK5613-88-80 09:59:00 Test Item Value Reference Range Interpretation Comments PROTIME (test code = PROTIME) 22.7 s 12.0-14.7 H [facility] NortheastOpfcmlmCTXOERSSLQ1771-37-65 09:59:00 Test Item Value Reference Range Interpretation Comments Basophils # (test code 0.1 See_Comment N [Aut omated message] The = Basophils #) system which generated this result tra nsmitted reference range : <=0.2. The reference r andreia was not used to int erpret this result as normal/abnormal . [facility] NortheastTqwyxutFMHYBQVOHZ8676-04-14 09:59:00 Test Item Value Reference Range Interpretation Comments Eosinophils # (test code 0.4 See_Comment N [A utomated message] The = Eosinophils #) system whic h generated this result tra nsmitted reference range : <=0.5. The reference r andreia was not used to int erpret this result as normal/abnormal . [facility] NortheastZoxmbatUWWBJKNVZA5508-30-60 09:59:00 Test Item Value Reference Range Interpretation Comments Monocytes # (test code 0.7 See_Comment N [Aut omated message] The = Monocytes #) system which generated this result tra nsmitted reference range : <=0.8. The reference r andreia was not used to int erpret this result as normal/abnormal . [facility] NortheastRezkfjpJGYLTBHQOX2704-81-04 09:59:00 Test Item Value Reference Range Interpretation Comments Lymphocytes # (test code = Lymphocytes 2.7 1.0-5.5 N #) [facility] NortheastZikvwpcGAWVLPTWGH8636-09-55 09:59:00 Test Item Value Reference Range Interpretation Comments Segs-Bands # (test code = Segs-Bands #) 4.7 1.5-8.1 N [facility] NortheastNhrkppzZWZPPGTCWI8332-94-03 09:59:00 Test Item Value Reference Range Interpretation Comments Basophils (test code = 0.8 See_Comment N [Aut omated message] The Basophils) system which ge nerated this result tra nsmitted reference range : <=1.0. The reference r andreia was not used to int erpret this result as normal/abnormal . [facility] NortheastAnitzdaVLHUWFYGOL7701-84-43 09:59:00 Test Item Value Reference Range Interpretation Comments Eosinophils (test code = 5.1 See_Comment H [A utomated message] The Eosinophils) system which ge nerated this result tra nsmitted reference range : <=4.0. The reference r andreia was not used to int erpret this result as normal/abnormal . [facility] NortheastFbehocwNSOGGZMETN4612-41-37 09:59:00 Test Item Value Reference Range Interpretation Comments Lymphocytes (test code = Lymphocytes) 31.8 20.0-40.0 N [facility] NortheastRxadljwCYUFYLCBNU6522-31-27 09:59:00 Test Item Value Reference Range Interpretation Comments Segs (test code = Segs) 54.5 45.0-75.0 N [facility] NortheastFgmjnapRKCFKDGXNC7925-03-56 09:59:00 Test Item Value Reference Range Interpretation Comments Monocytes (test code = Monocytes) 7.8 2.0-12.0 N [facility] NortheastUqdxnizHNBAOFCEDJ6485-45-54 09:59:00 Test Item Value Reference Range Interpretation Comments WBC X 10x3 (test code = WBC X 10x3) 8.7 3.7-10.4 N [facility] NortheastKxvdimqIMHWERZRZS7539-10-66 09:59:00 Test Item Value Reference Range Interpretation Comments MCHC (test code = MCHC) 33.1 32.0-36.0 N [facility] NortheastBkkpxufDPSBCHHVGV2478-57-07 09:59:00 Test Item Value Reference Range Interpretation Comments RBC X 10x6 (test code = RBC X 10x6) 2.83 4.20-5.40 L [facility] NortheastGliebegNMEXRXLAHG2838-91-85 09:59:00 Test Item Value Reference Range Interpretation Comments Platelet (test code = Platelet) 544 133-450 H [facility] NortheastLfvyzdaYUBOQNZTYL5508-52-99 09:59:00 Test Item Value Reference Range Interpretation Comments MPV (test code = MPV) 6.7 7.4-10.4 L [facility] NortheastIfujiqmQXWRZEZEWS2748-70-97 09:59:00 Test Item Value Reference Range Interpretation Comments RDW (test code = RDW) 14.4 11.5-14.5 N [facility] NortheastWpyftxtAZVPCYSHUL0254-16-56 09:59:00 Test Item Value Reference Range Interpretation Comments Hgb (test code = Hgb) 8.5 12.0-16.0 L [facility] NortheastYsxcwpeIBLXXQHWPF7514-22-32 09:59:00 Test Item Value Reference Range Interpretation Comments MCH (test code = MCH) 30.2 pg 27.0-31.0 N [facility] NortheastBzhciclENFBNSHGIL7170-71-95 09:59:00 Test Item Value Reference Range Interpretation Comments Hct (test code = Hct) 25.8 36.0-48.0 L [facility] NortheastZxbtlqwKRQCKPAJJJ6327-74-96 09:59:00 Test Item Value Reference Range Interpretation Comments MCV (test code = MCV) 91.2 81.0-99.0 N [facility] CenterUemdavxAHFNEAUGE0845-35-89 09:59:00 Test Item Value Reference Range Interpretation Comments AGAP (test code = AGAP) 13.3 10.0-20.0 N [facility] CenterNqftavoACXFRNHND5286-48-71 09:59:00 Test Item Value Reference Range Interpretation Comments Glucose Lvl (test code = Glucose Lvl) 119 70-99 H [facility] CenterVktcdimQCZUGEBUC0308-25-93 09:59:00 Test Item Value Reference Range Interpretation Comments Chloride Lvl (test code = Chloride Lvl) 107 95-109 N [facility] CenterWftycpvMFSKSDUMC8054-79-42 09:59:00 Test Item Value Reference Range Interpretation Comments Potassium Lvl (test code = Potassium 4.3 3.5-5.1 N Lvl) [facility] CenterBsydeadRBMDWFFEY4827-07-93 09:59:00 Test Item Value Reference Range Interpretation Comments BUN (test code = BUN) 26 7-22 H [facility] CenterVzxribuXHRJUJQXA5463-38-04 09:59:00 Test Item Value Reference Range Interpretation Comments Sodium Lvl (test code = Sodium Lvl) 141 135-145 N [facility] CenterQkljmknDDONIPULW4901-18-05 09:59:00 Test Item Value Reference Range Interpretation Comments Creatinine Lvl (test code = Creatinine 1.2 0.5-1.4 N Lvl) [facility] CenterQlgfglqSOVIFLDEC0367-30-33 09:59:00 Test Item Value Reference Range Interpretation Comments Calcium Lvl (test code = Calcium Lvl) 8.2 8.5-10.5 L [facility] CenterMcdaqnwJDWFKJODW2237-33-74 09:59:00 Test Item Value Reference Range Interpretation Comments CO2 (test code = CO2) 25 24-32 N [facility] CenterFrwtyrzRHQRZNPMH4301-55-90 09:59:00 Test Item Value Reference Range Interpretation Comments eGFR (test code = eGFR) 43 [facility] NortheastLjmqstrVQATOBLXRT7305-90-70 09:59:00 Test Item Value Reference Range Interpretation Comments INR (test code = INR) 2.04 0.85-1.17 H [facility] NortheastWsfryaeKZGDMFLPPM9826-05-20 09:59:00 Test Item Value Reference Range Interpretation Comments PROTIME (test code = PROTIME) 22.7 s 12.0-14.7 H [facility] NortheastXpdqnatBNNRYBSZZX0937-46-73 09:59:00 Test Item Value Reference Range Interpretation Comments Basophils # (test code = Basophils #) 0.1 <=0.2 N [facility] NortheastIrvtwebGHLJXPTATI1576-70-42 09:59:00 Test Item Value Reference Range Interpretation Comments Eosinophils # (test code = Eosinophils 0.4 <=0.5 N #) [facility] NortheastVqgkwedSYUIZCBHUH7990-40-79 09:59:00 Test Item Value Reference Range Interpretation Comments Monocytes # (test code = Monocytes #) 0.7 <=0.8 N [facility] NortheastCrmaaczHYKWUCXGVK7058-63-29 09:59:00 Test Item Value Reference Range Interpretation Comments Lymphocytes # (test code = Lymphocytes 2.7 1.0-5.5 N #) [facility] NortheastKciyxtxZSBEYDULDI3542-89-47 09:59:00 Test Item Value Reference Range Interpretation Comments Segs-Bands # (test code = Segs-Bands #) 4.7 1.5-8.1 N [place] [address]-02-02 09:59:00 Test Item Value Reference Range Interpretation Comments Basophils (test code = Basophils) 0.8 <=1.0 N [facility] NortheastMfqhapdYMBHLFYICX3792-11-46 09:59:00 Test Item Value Reference Range Interpretation Comments Eosinophils (test code = Eosinophils) 5.1 <=4.0 H [facility] NortheastTvkbxwiGWYBNQMAWW4977-92-04 09:59:00 Test Item Value Reference Range Interpretation Comments Lymphocytes (test code = Lymphocytes) 31.8 20.0-40.0 N [facility] NortheastEfwrtgbPAIMKMBLCJ7778-88-22 09:59:00 Test Item Value Reference Range Interpretation Comments Segs (test code = Segs) 54.5 45.0-75.0 N [facility] NortheastDetdmfzAHIPXJEQFV3408-46-70 09:59:00 Test Item Value Reference Range Interpretation Comments Monocytes (test code = Monocytes) 7.8 2.0-12.0 N [facility] NortheastYzlxjzqZPQELELICS9810-37-44 09:59:00 Test Item Value Reference Range Interpretation Comments WBC X 10x3 (test code = WBC X 10x3) 8.7 3.7-10.4 N [facility] NortheastSopyiujCCOVWSGKZD9494-05-16 09:59:00 Test Item Value Reference Range Interpretation Comments MCHC (test code = MCHC) 33.1 32.0-36.0 N [facility] NortheastEtzlwbkDNLCPVVCCI5471-83-19 09:59:00 Test Item Value Reference Range Interpretation Comments RBC X 10x6 (test code = RBC X 10x6) 2.83 4.20-5.40 L [facility] NortheastBzjnxduIVWYQVWQVR5764-34-21 09:59:00 Test Item Value Reference Range Interpretation Comments Platelet (test code = Platelet) 544 133-450 H [facility] NortheastCbbrhngYMYMXHSEVH0732-73-43 09:59:00 Test Item Value Reference Range Interpretation Comments MPV (test code = MPV) 6.7 7.4-10.4 [facility]XvgwdlhFHHYQCCKOV8316-48-74 09:59:00 Test Item Value Reference Range Interpretation Comments RDW (test code = RDW) 14.4 11.5-14.5 N [facility]XviohadHLBWVWHPZQ9656-31-29 09:59:00 Test Item Value Reference Range Interpretation Comments Hgb (test code = Hgb) 8.5 12.0-16.0 L [facility]ByouplnYZMXBCINTJ1774-35-86 09:59:00 Test Item Value Reference Range Interpretation Comments MCH (test code = MCH) 30.2 pg 27.0-31.0 N [facility]YrhyqkuKKWAPKIBOS9614-89-61 09:59:00 Test Item Value Reference Range Interpretation Comments Hct (test code = Hct) 25.8 36.0-48.0 L [facility] NortheastOwnescjUCWVCXMXFU0268-93-70 09:59:00 Test Item Value Reference Range Interpretation Comments MCV (test code = MCV) 91.2 81.0-99.0 [facility]LicdzzcVHWZBUNNN0092-36-16 09:59:00 Test Item Value Reference Range Interpretation Comments AGAP (test code = AGAP) 13.3 10.0-20.0 N [facility] CenterMfwqllzXKJINKPOL3692-86-01 09:59:00 Test Item Value Reference Range Interpretation Comments Glucose Lvl (test code = Glucose Lvl) 119 70-99 H [facility] CenterAnlxfsrVYCSYEQDL7378-94-39 09:59:00 Test Item Value Reference Range Interpretation Comments Chloride Lvl (test code = Chloride Lvl) 107 95-109 N [facility] CenterRxaeopsCLEUHWWFZ5204-01-40 09:59:00 Test Item Value Reference Range Interpretation Comments Potassium Lvl (test code = Potassium 4.3 3.5-5.1 N Lvl) [facility] CenterGrgqkztNRQBJLDNE6384-49-88 09:59:00 Test Item Value Reference Range Interpretation Comments BUN (test code = BUN) 26 7-22 [facility] CenterXuooybwOGRJQWZFF5313-92-93 09:59:00 Test Item Value Reference Range Interpretation Comments Sodium Lvl (test code = Sodium Lvl) 141 135-145 N [facility] CenterQtwfnqhGSMSWGUSD3295-40-68 09:59:00 Test Item Value Reference Range Interpretation Comments Creatinine Lvl (test code = Creatinine 1.2 0.5-1.4 N Lvl) [facility] CenterUlfkwdjLNIBZBKRD7518-82-43 09:59:00 Test Item Value Reference Range Interpretation Comments Calcium Lvl (test code = Calcium Lvl) 8.2 8.5-10.5 L [facility] CenterMzddfefOTJGUTPRM1248-05-91 09:59:00 Test Item Value Reference Range Interpretation Comments CO2 (test code = CO2) 25 24-32 N [facility] CenterSsafytiHFADXYDMH7391-18-00 09:59:00 Test Item Value Reference Range Interpretation Comments eGFR (test code = eGFR) 43 [facility]SolpataVVNUYJJOXI3013-12-04 09:59:00 Test Item Value Reference Range Interpretation Comments INR (test code = INR) 2.04 0.85-1.17 [facility] NortheastThgahbtMNKBYOVOAS4150-51-42 09:59:00 Test Item Value Reference Range Interpretation Comments PROTIME (test code = PROTIME) 22.7 s 12.0-14.7 H [facility] NortheastEsguuozNKAVRMYRLE4626-90-36 09:59:00 Test Item Value Reference Range Interpretation Comments Basophils # (test code 0.1 See_Comment N [Aut omated message] The = Basophils #) system which generated this result tra nsmitted reference range : <=0.2. The reference r andreia was not used to int erpret this result as normal/abnormal . [facility] NortheastRtgkbhpYYOMJYDEKQ1526-48-16 09:59:00 Test Item Value Reference Range Interpretation Comments Eosinophils # (test code 0.4 See_Comment N [A utomated message] The = Eosinophils #) system whic h generated this result tra nsmitted reference range : <=0.5. The reference r andreia was not used to int erpret this result as normal/abnormal . [facility]QowhlvjNUAWHHREKP1439-50-47 09:59:00 Test Item Value Reference Range Interpretation Comments Monocytes # (test code 0.7 See_Comment N [Aut omated message] The = Monocytes #) system which generated this result tra nsmitted reference range : <=0.8. The reference r andreia was not used to int erpret this result as normal/abnormal . [facility] NortheastEmlzcptEQJYXKOFYO1182-04-86 09:59:00 Test Item Value Reference Range Interpretation Comments Lymphocytes # (test code = Lymphocytes 2.7 1.0-5.5 N #) [facility]VyexdbcFUTEQGVFIR3633-78-96 09:59:00 Test Item Value Reference Range Interpretation Comments Segs-Bands # (test code = Segs-Bands #) 4.7 1.5-8.1 N [facility] NortheastFuovjrcZREXOUSSUS7033-07-82 09:59:00 Test Item Value Reference Range Interpretation Comments Basophils (test code = 0.8 See_Comment N [Aut omated message] The Basophils) system which ge nerated this result tra nsmitted reference range : <=1.0. The reference r andreia was not used to int erpret this result as normal/abnormal . [facility] NortheastGqkrcdwFHUHOOLCNE9670-31-56 09:59:00 Test Item Value Reference Range Interpretation Comments Eosinophils (test code = 5.1 See_Comment H [A utomated message] The Eosinophils) system which ge nerated this result tra nsmitted reference range : <=4.0. The reference r andreia was not used to int erpret this result as normal/abnormal . [facility] NortheastUjmfqheFCDLKPVLZQ6831-18-61 09:59:00 Test Item Value Reference Range Interpretation Comments Lymphocytes (test code = Lymphocytes) 31.8 20.0-40.0 N [facility] NortheastVhacqqgWZZYSQFVYT9993-62-53 09:59:00 Test Item Value Reference Range Interpretation Comments Segs (test code = Segs) 54.5 45.0-75.0 N [facility] NortheastHkpredxFXRNHDZJFK6080-84-63 09:59:00 Test Item Value Reference Range Interpretation Comments Monocytes (test code = Monocytes) 7.8 2.0-12.0 N [facility]XnwimgkSPGFHTEEUC5732-89-75 09:59:00 Test Item Value Reference Range Interpretation Comments WBC X 10x3 (test code = WBC X 10x3) 8.7 3.7-10.4 N [facility] NortheastOjiogbdZWRMJHALSS9893-57-92 09:59:00 Test Item Value Reference Range Interpretation Comments MCHC (test code = MCHC) 33.1 32.0-36.0 N [facility]XmzipnfXICXSNNHEF6193-12-85 09:59:00 Test Item Value Reference Range Interpretation Comments RBC X 10x6 (test code = RBC X 10x6) 2.83 4.20-5.40 [facility] NortheastAxovfebUUGDWXJXIN3432-92-77 09:59:00 Test Item Value Reference Range Interpretation Comments Platelet (test code = Platelet) 544 133-450 H [facility]KmjvmrjOWMODDWDNR3119-31-83 09:59:00 Test Item Value Reference Range Interpretation Comments MPV (test code = MPV) 6.7 7.4-10.4 L [facility] NortheastZrtzpnaUYRNINWFIM5453-06-57 09:59:00 Test Item Value Reference Range Interpretation Comments RDW (test code = RDW) 14.4 11.5-14.5 N [facility]JsnaploFFURANWPCR2233-26-25 09:59:00 Test Item Value Reference Range Interpretation Comments Hgb (test code = Hgb) 8.5 12.0-16.0 L [facility] NortheastSvdffulARLFICTNNI1808-55-11 09:59:00 Test Item Value Reference Range Interpretation Comments MCH (test code = MCH) 30.2 pg 27.0-31.0 N [facility] NortheastCkrxcxcQROTXUSSOG7923-42-86 09:59:00 Test Item Value Reference Range Interpretation Comments Hct (test code = Hct) 25.8 36.0-48.0 L [facility] NortheastMiektxsEWMFWQIGXV5252-56-42 09:59:00 Test Item Value Reference Range Interpretation Comments MCV (test code = MCV) 91.2 81.0-99.0 N [facility] CenterOlayhvvCQWTHZALH0124-04-02 09:59:00 Test Item Value Reference Range Interpretation Comments AGAP (test code = AGAP) 13.3 10.0-20.0 N [facility] CenterJvgnaetWEDUABHWU8585-57-61 09:59:00 Test Item Value Reference Range Interpretation Comments Glucose Lvl (test code = Glucose Lvl) 119 70-99 H [facility] CenterZqetueoQNAMANDNJ8597-79-35 09:59:00 Test Item Value Reference Range Interpretation Comments Chloride Lvl (test code = Chloride Lvl) 107 95-109 N [facility] CenterWwdppwaCSHLGZIZH7994-01-35 09:59:00 Test Item Value Reference Range Interpretation Comments Potassium Lvl (test code = Potassium 4.3 3.5-5.1 N Lvl) [facility] CenterTjujkydHMMNPHQYR6232-79-38 09:59:00 Test Item Value Reference Range Interpretation Comments BUN (test code = BUN) 26 7-22 H [facility] CenterNcksnheONTYQHEQV6167-37-10 09:59:00 Test Item Value Reference Range Interpretation Comments Sodium Lvl (test code = Sodium Lvl) 141 135-145 N [facility] CenterKtamaknNBMUBZYEL0276-84-04 09:59:00 Test Item Value Reference Range Interpretation Comments Creatinine Lvl (test code = Creatinine 1.2 0.5-1.4 N Lvl) [facility] CenterXctnwagBVIYCVYMA7262-65-99 09:59:00 Test Item Value Reference Range Interpretation Comments Calcium Lvl (test code = Calcium Lvl) 8.2 8.5-10.5 L [facility] CenterXlgbhnvYNFPLUQGO8513-99-65 09:59:00 Test Item Value Reference Range Interpretation Comments CO2 (test code = CO2) 25 24-32 N [facility] CenterPokeyjaWOYYWUPWG6806-86-49 09:59:00 Test Item Value Reference Range Interpretation Comments eGFR (test code = eGFR) 43 [facility] NortheastZojulfiJLIYVDDROZ1138-97-79 09:59:00 Test Item Value Reference Range Interpretation Comments INR (test code = INR) 2.04 0.85-1.17 [facility] NortheastBrolcjeKRYABQFJYJ1810-35-02 09:59:00 Test Item Value Reference Range Interpretation Comments PROTIME (test code = PROTIME) 22.7 s 12.0-14.7 H [facility] NortheastMgahitnSOCNGQDOSG2776-77-55 09:59:00 Test Item Value Reference Range Interpretation Comments Basophils # (test code 0.1 See_Comment N [Aut omated message] The = Basophils #) system which generated this result tra nsmitted reference range : <=0.2. The reference r andreia was not used to int erpret this result as normal/abnormal . [facility] NortheastDcjhupbDYCEAXAJPX2716-29-06 09:59:00 Test Item Value Reference Range Interpretation Comments Eosinophils # (test code 0.4 See_Comment N [A utomated message] The = Eosinophils #) system whic h generated this result tra nsmitted reference range : <=0.5. The reference r andreia was not used to int erpret this result as normal/abnormal . [facility] NortheastHrepctnUOSMPNBPZU0103-01-57 09:59:00 Test Item Value Reference Range Interpretation Comments Monocytes # (test code 0.7 See_Comment N [Aut omated message] The = Monocytes #) system which generated this result tra nsmitted reference range : <=0.8. The reference r andreia was not used to int erpret this result as normal/abnormal . [facility] NortheastVigvywiIGQHOFFYLL3949-63-43 09:59:00 Test Item Value Reference Range Interpretation Comments Lymphocytes # (test code = Lymphocytes 2.7 1.0-5.5 N #) [facility] NortheastDagqnkxXBDROOHSMH7271-89-18 09:59:00 Test Item Value Reference Range Interpretation Comments Segs-Bands # (test code = Segs-Bands #) 4.7 1.5-8.1 N [facility]BufvgyzXHJEOJIGIG4935-26-81 09:59:00 Test Item Value Reference Range Interpretation Comments Basophils (test code = 0.8 See_Comment N [Aut omated message] The Basophils) system which ge nerated this result tra nsmitted reference range : <=1.0. The reference r andreia was not used to int erpret this result as normal/abnormal . [facility] NortheastFbjgvlcOWXKMASHTW4127-33-27 09:59:00 Test Item Value Reference Range Interpretation Comments Eosinophils (test code = 5.1 See_Comment H [A utomated message] The Eosinophils) system which ge nerated this result tra nsmitted reference range : <=4.0. The reference r andreia was not used to int erpret this result as normal/abnormal . [facility] NortheastPeajoisAYXLQGUFYS7863-32-80 09:59:00 Test Item Value Reference Range Interpretation Comments Lymphocytes (test code = Lymphocytes) 31.8 20.0-40.0 N [facility] NortheastVatfxcaARBAWPHHMS4304-46-76 09:59:00 Test Item Value Reference Range Interpretation Comments Segs (test code = Segs) 54.5 45.0-75.0 N [facility] NortheastDzrdrfqGBHDLNFLHU2882-80-37 09:59:00 Test Item Value Reference Range Interpretation Comments Monocytes (test code = Monocytes) 7.8 2.0-12.0 N [facility] NortheastLnuhtggFHAWZIDLUK3102-00-36 09:59:00 Test Item Value Reference Range Interpretation Comments WBC X 10x3 (test code = WBC X 10x3) 8.7 3.7-10.4 N [facility] NortheastPqeusnzUSIDCIZATM2639-30-31 09:59:00 Test Item Value Reference Range Interpretation Comments MCHC (test code = MCHC) 33.1 32.0-36.0 N [facility] NortheastQtphmwbIKEVNGAZDW7888-40-42 09:59:00 Test Item Value Reference Range Interpretation Comments RBC X 10x6 (test code = RBC X 10x6) 2.83 4.20-5.40 L [facility] NortheastNpaexhuRFKHVXVEQT4795-34-56 09:59:00 Test Item Value Reference Range Interpretation Comments Platelet (test code = Platelet) 544 133-450 H [facility] NortheastIkiratrJYLGXVHSTG6943-84-65 09:59:00 Test Item Value Reference Range Interpretation Comments MPV (test code = MPV) 6.7 7.4-10.4 L [facility] NortheastJkpcekdSOZODZZTDB4072-88-70 09:59:00 Test Item Value Reference Range Interpretation Comments RDW (test code = RDW) 14.4 11.5-14.5 N [facility] NortheastRjvraazBTAOIMMXTB6643-13-40 09:59:00 Test Item Value Reference Range Interpretation Comments Hgb (test code = Hgb) 8.5 12.0-16.0 L [facility] NortheastScdrkjgZIKQUIPIUT7436-63-80 09:59:00 Test Item Value Reference Range Interpretation Comments MCH (test code = MCH) 30.2 pg 27.0-31.0 N [facility] NortheastQvrnoavGILPWHPVDV4606-40-05 09:59:00 Test Item Value Reference Range Interpretation Comments Hct (test code = Hct) 25.8 36.0-48.0 L [facility] NortheastPurixgePYRQQONUXL5885-57-53 09:59:00 Test Item Value Reference Range Interpretation Comments MCV (test code = MCV) 91.2 81.0-99.0 N [facility] CenterRltyzfqATYTCUTWF0763-20-05 09:59:00 Test Item Value Reference Range Interpretation Comments AGAP (test code = AGAP) 13.3 10.0-20.0 N [facility] CenterQerfkzzOUVHSJNHO7125-60-26 09:59:00 Test Item Value Reference Range Interpretation Comments Glucose Lvl (test code = Glucose Lvl) 119 70-99 H [facility] CenterXckeaplENDUMFUCU5275-01-76 09:59:00 Test Item Value Reference Range Interpretation Comments Chloride Lvl (test code = Chloride Lvl) 107 95-109 N [facility] CenterIsqcerrKBXDYYOXT6455-23-94 09:59:00 Test Item Value Reference Range Interpretation Comments Potassium Lvl (test code = Potassium 4.3 3.5-5.1 N Lvl) [facility] CenterGelhlqnVUHRKWXWY7709-72-07 09:59:00 Test Item Value Reference Range Interpretation Comments BUN (test code = BUN) 26 7-22 H [facility] CenterDckjxpbIUYEMQWYC7401-24-92 09:59:00 Test Item Value Reference Range Interpretation Comments Sodium Lvl (test code = Sodium Lvl) 141 135-145 N [facility] CenterJotvvyxTJBITWAZE2180-77-82 09:59:00 Test Item Value Reference Range Interpretation Comments Creatinine Lvl (test code = Creatinine 1.2 0.5-1.4 N Lvl) [facility] CenterIauawzjVQXGRPPYC3783-39-34 09:59:00 Test Item Value Reference Range Interpretation Comments Calcium Lvl (test code = Calcium Lvl) 8.2 8.5-10.5 L [facility] CenterDoszocrTHKUONRAO7418-49-68 09:59:00 Test Item Value Reference Range Interpretation Comments CO2 (test code = CO2) 25 24-32 N [facility] CenterAwnsnypWJQMCHRCU0978-70-40 09:59:00 Test Item Value Reference Range Interpretation Comments eGFR (test code = eGFR) 43 [facility] NortheastJjabpyzOCNALGLITL0790-04-05 09:59:00 Test Item Value Reference Range Interpretation Comments INR (test code = INR) 2.04 0.85-1.17 H [facility] NortheastHpqevnzDOVVHSRPHE3053-43-70 09:59:00 Test Item Value Reference Range Interpretation Comments PROTIME (test code = PROTIME) 22.7 s 12.0-14.7 H [facility] NortheastZnlsglvUQHBXNDJZH7377-92-30 09:59:00 Test Item Value Reference Range Interpretation Comments Basophils # (test code 0.1 See_Comment N [Aut omated message] The = Basophils #) system which generated this result tra nsmitted reference range : <=0.2. The reference r andreia was not used to int erpret this result as normal/abnormal . [facility] NortheastDsuvlbeJVNUECCYWK7545-61-33 09:59:00 Test Item Value Reference Range Interpretation Comments Eosinophils # (test code 0.4 See_Comment N [A utomated message] The = Eosinophils #) system whic h generated this result tra nsmitted reference range : <=0.5. The reference r andreia was not used to int erpret this result as normal/abnormal . [facility] NortheastSrkczkzDLBXQLBPPV8897-03-97 09:59:00 Test Item Value Reference Range Interpretation Comments Monocytes # (test code 0.7 See_Comment N [Aut omated message] The = Monocytes #) system which generated this result tra nsmitted reference range : <=0.8. The reference r andreia was not used to int erpret this result as normal/abnormal . [facility] NortheastCrhozviZCUUZFNUEX7904-40-91 09:59:00 Test Item Value Reference Range Interpretation Comments Lymphocytes # (test code = Lymphocytes 2.7 1.0-5.5 N #) [facility]RaprqsaQGQEKOYFNL6028-85-58 09:59:00 Test Item Value Reference Range Interpretation Comments Segs-Bands # (test code = Segs-Bands #) 4.7 1.5-8.1 N [facility] NortheastElxaagvCRWSFJAJER1347-39-24 09:59:00 Test Item Value Reference Range Interpretation Comments Basophils (test code = 0.8 See_Comment N [Aut omated message] The Basophils) system which ge nerated this result tra nsmitted reference range : <=1.0. The reference r andreia was not used to int erpret this result as normal/abnormal . [facility] NortheastHdyguoqPPFXEHCPAZ6036-14-37 09:59:00 Test Item Value Reference Range Interpretation Comments Eosinophils (test code = 5.1 See_Comment H [A utomated message] The Eosinophils) system which ge nerated this result tra nsmitted reference range : <=4.0. The reference r andreia was not used to int erpret this result as normal/abnormal . [facility] NortheastCsigfjaWCGAGEDBPX5275-34-74 09:59:00 Test Item Value Reference Range Interpretation Comments Lymphocytes (test code = Lymphocytes) 31.8 20.0-40.0 N [facility] NortheastMdvgdgrNHMBPXCZWQ1497-56-94 09:59:00 Test Item Value Reference Range Interpretation Comments Segs (test code = Segs) 54.5 45.0-75.0 N [facility] NortheastNrujlkjEVOSPFAQTQ6694-49-79 09:59:00 Test Item Value Reference Range Interpretation Comments Monocytes (test code = Monocytes) 7.8 2.0-12.0 N [facility] NortheastJshcottZEWBOZPDSB7276-71-42 09:59:00 Test Item Value Reference Range Interpretation Comments WBC X 10x3 (test code = WBC X 10x3) 8.7 3.7-10.4 N [facility] NortheastPcqfwsqEFQJPTESZE8344-98-85 09:59:00 Test Item Value Reference Range Interpretation Comments MCHC (test code = MCHC) 33.1 32.0-36.0 N [facility] NortheastSrupzdePQWLPFZXLN3434-43-15 09:59:00 Test Item Value Reference Range Interpretation Comments RBC X 10x6 (test code = RBC X 10x6) 2.83 4.20-5.40 L [facility] NortheastFoyevmpSRVRUSHVLF2615-10-41 09:59:00 Test Item Value Reference Range Interpretation Comments Platelet (test code = Platelet) 544 133-450 H [facility] NortheastBebddbsKZRQLKBWJV4358-22-59 09:59:00 Test Item Value Reference Range Interpretation Comments MPV (test code = MPV) 6.7 7.4-10.4 L [facility] NortheastHiadooxNUCGRCWJWC4196-21-65 09:59:00 Test Item Value Reference Range Interpretation Comments RDW (test code = RDW) 14.4 11.5-14.5 N [facility] NortheastLcpzqktLAPBNPHUQQ2654-54-62 09:59:00 Test Item Value Reference Range Interpretation Comments Hgb (test code = Hgb) 8.5 12.0-16.0 L [facility] NortheastWcxpneqZSAPCKLHXB0532-60-74 09:59:00 Test Item Value Reference Range Interpretation Comments MCH (test code = MCH) 30.2 pg 27.0-31.0 N [facility] NortheastJmwpljoRQGYSLLHRG9432-99-08 09:59:00 Test Item Value Reference Range Interpretation Comments Hct (test code = Hct) 25.8 36.0-48.0 L [facility] NortheastYodvxrxQVVLIZYOND7543-05-44 09:59:00 Test Item Value Reference Range Interpretation Comments MCV (test code = MCV) 91.2 81.0-99.0 N [facility] CenterDquuvccTJBDTWSMN2430-51-64 09:59:00 Test Item Value Reference Range Interpretation Comments AGAP (test code = AGAP) 13.3 10.0-20.0 N [facility] CenterSguzczxOVUJGGXCQ5052-98-60 09:59:00 Test Item Value Reference Range Interpretation Comments Glucose Lvl (test code = Glucose Lvl) 119 70-99 H [facility] CenterMenuqorDXIFJAPBQ7390-61-71 09:59:00 Test Item Value Reference Range Interpretation Comments Chloride Lvl (test code = Chloride Lvl) 107 95-109 N [facility] CenterSbeuhutTOUARYHHU3888-79-41 09:59:00 Test Item Value Reference Range Interpretation Comments Potassium Lvl (test code = Potassium 4.3 3.5-5.1 N Lvl) [facility] CenterUaydetrXKHQVZEXM9010-85-60 09:59:00 Test Item Value Reference Range Interpretation Comments BUN (test code = BUN) 26 7-22 H [facility] CenterVgyahgpVFKHYPZOG9501-55-44 09:59:00 Test Item Value Reference Range Interpretation Comments Sodium Lvl (test code = Sodium Lvl) 141 135-145 N [facility] CenterRofgghzBNYNEMZIB2994-69-13 09:59:00 Test Item Value Reference Range Interpretation Comments Creatinine Lvl (test code = Creatinine 1.2 0.5-1.4 N Lvl) [facility] CenterEcfkyvxDTMPBLCTW9576-49-33 09:59:00 Test Item Value Reference Range Interpretation Comments Calcium Lvl (test code = Calcium Lvl) 8.2 8.5-10.5 L [facility] CenterWdnanmvZUASNBGQJ8269-44-89 09:59:00 Test Item Value Reference Range Interpretation Comments CO2 (test code = CO2) 25 24-32 N [facility] CenterTnlhsvoFZMRUCYBZ2238-85-92 09:59:00 Test Item Value Reference Range Interpretation Comments eGFR (test code = eGFR) 43 [facility] NortheastUvwyvaxPGNCQMWEEA1339-98-48 09:59:00 Test Item Value Reference Range Interpretation Comments INR (test code = INR) 2.04 0.85-1.17 H [facility] NortheastZdqeogwZRAORBJTMD3757-96-82 09:59:00 Test Item Value Reference Range Interpretation Comments PROTIME (test code = PROTIME) 22.7 s 12.0-14.7 H [facility] NortheastHccjjdgCXQWGGJXPG6476-72-78 09:59:00 Test Item Value Reference Range Interpretation Comments Basophils # (test code 0.1 See_Comment N [Aut omated message] The = Basophils #) system which generated this result tra nsmitted reference range : <=0.2. The reference r andreia was not used to int erpret this result as normal/abnormal . [facility] NortheastResbmrpYYLROEEKXH2614-82-11 09:59:00 Test Item Value Reference Range Interpretation Comments Eosinophils # (test code 0.4 See_Comment N [A utomated message] The = Eosinophils #) system whic h generated this result tra nsmitted reference range : <=0.5. The reference r andreia was not used to int erpret this result as normal/abnormal . [facility] NortheastEgiacnzCOONZQUIXB6442-53-73 09:59:00 Test Item Value Reference Range Interpretation Comments Monocytes # (test code 0.7 See_Comment N [Aut omated message] The = Monocytes #) system which generated this result tra nsmitted reference range : <=0.8. The reference r andreia was not used to int erpret this result as normal/abnormal . [facility] NortheastLvwpfvqTUOSJQQIBK1925-26-13 09:59:00 Test Item Value Reference Range Interpretation Comments Lymphocytes # (test code = Lymphocytes 2.7 1.0-5.5 N #) [facility] NortheastVoxwamdDWMNANVRWP0407-15-09 09:59:00 Test Item Value Reference Range Interpretation Comments Segs-Bands # (test code = Segs-Bands #) 4.7 1.5-8.1 N [facility] NortheastPvpzicgZIVJFQCOKF6076-69-18 09:59:00 Test Item Value Reference Range Interpretation Comments Basophils (test code = 0.8 See_Comment N [Aut omated message] The Basophils) system which ge nerated this result tra nsmitted reference range : <=1.0. The reference r andreia was not used to int erpret this result as normal/abnormal . [facility] NortheastTpfmeuvCBQWJUQYFC6380-68-84 09:59:00 Test Item Value Reference Range Interpretation Comments Eosinophils (test code = 5.1 See_Comment H [A utomated message] The Eosinophils) system which ge nerated this result tra nsmitted reference range : <=4.0. The reference r andreia was not used to int erpret this result as normal/abnormal . [facility] NortheastDimgpsbWNOCGDCQMI8961-28-07 09:59:00 Test Item Value Reference Range Interpretation Comments Lymphocytes (test code = Lymphocytes) 31.8 20.0-40.0 N [facility] NortheastBzyqnrpCOEORROUWZ1060-44-60 09:59:00 Test Item Value Reference Range Interpretation Comments Segs (test code = Segs) 54.5 45.0-75.0 [facility]QbbfeejYWPZYUPOOA1724-34-34 09:59:00 Test Item Value Reference Range Interpretation Comments Monocytes (test code = Monocytes) 7.8 2.0-12.0 [facility]FjcqjruYQZHNWQQIU2409-60-80 09:59:00 Test Item Value Reference Range Interpretation Comments WBC X 10x3 (test code = WBC X 10x3) 8.7 3.7-10.4 N [facility]VpmtmveSEAEEPWYQR5976-72-77 09:59:00 Test Item Value Reference Range Interpretation Comments MCHC (test code = MCHC) 33.1 32.0-36.0 N [facility]EdwwkvzUPGTTSJFZS4361-77-62 09:59:00 Test Item Value Reference Range Interpretation Comments RBC X 10x6 (test code = RBC X 10x6) 2.83 4.20-5.40 L [facility] NortheastRmdelmaMLTLDXQSET7600-02-46 09:59:00 Test Item Value Reference Range Interpretation Comments Platelet (test code = Platelet) 544 133-450 [facility] NortheastClstiolGWEKXOFMFB3128-10-73 09:59:00 Test Item Value Reference Range Interpretation Comments MPV (test code = MPV) 6.7 7.4-10.4 L [facility]ZsmsekcGAXAOERIYJ9049-11-60 09:59:00 Test Item Value Reference Range Interpretation Comments RDW (test code = RDW) 14.4 11.5-14.5 N [facility]FxsbsfwYMCAJGKHHM9709-22-08 09:59:00 Test Item Value Reference Range Interpretation Comments Hgb (test code = Hgb) 8.5 12.0-16.0 L [facility] NortheastFogrunhHOVNLUWBKA7219-68-83 09:59:00 Test Item Value Reference Range Interpretation Comments MCH (test code = MCH) 30.2 pg 27.0-31.0 N [facility]SnchhbeKRNQJLXMSM6495-43-44 09:59:00 Test Item Value Reference Range Interpretation Comments Hct (test code = Hct) 25.8 36.0-48.0 L [facility]QdakzlzUXKXNYJYCR3779-82-73 09:59:00 Test Item Value Reference Range Interpretation Comments MCV (test code = MCV) 91.2 81.0-99.0 N [facility]GzuxpkmGUCWAFKFH3284-35-69 09:59:00 Test Item Value Reference Range Interpretation Comments AGAP (test code = AGAP) 13.3 10.0-20.0 N [facility] CenterFatbyczBSHBQCMNT5274-07-08 09:59:00 Test Item Value Reference Range Interpretation Comments Glucose Lvl (test code = Glucose Lvl) 119 70-99 H [facility] CenterXsbjrmmRZRNXSOYY1600-74-68 09:59:00 Test Item Value Reference Range Interpretation Comments Chloride Lvl (test code = Chloride Lvl) 107 95-109 N [facility] CenterTbnaudjSDEGRRBCO3915-13-86 09:59:00 Test Item Value Reference Range Interpretation Comments Potassium Lvl (test code = Potassium 4.3 3.5-5.1 N Lvl) [facility] CenterJqhgyukGJKUCCLOT8956-73-55 09:59:00 Test Item Value Reference Range Interpretation Comments BUN (test code = BUN) 26 7-22 [facility] CenterOiolvoxCEQMWVGSG2171-39-88 09:59:00 Test Item Value Reference Range Interpretation Comments Sodium Lvl (test code = Sodium Lvl) 141 135-145 N [facility] CenterDmvddyfCPMPHAJVZ9912-74-08 09:59:00 Test Item Value Reference Range Interpretation Comments Creatinine Lvl (test code = Creatinine 1.2 0.5-1.4 N Lvl) [facility] CenterHypivewJUZNJPOBK3566-56-74 09:59:00 Test Item Value Reference Range Interpretation Comments Calcium Lvl (test code = Calcium Lvl) 8.2 8.5-10.5 L [facility] CenterKpujpgoICHSUJWFD1552-89-24 09:59:00 Test Item Value Reference Range Interpretation Comments CO2 (test code = CO2) 25 24-32 N [facility] CenterHsqapceAXMIHSFTU3856-06-76 09:59:00 Test Item Value Reference Range Interpretation Comments eGFR (test code = eGFR) 43 [facility]WituktkHMRLAXRDMS0267-11-38 09:59:00 Test Item Value Reference Range Interpretation Comments INR (test code = INR) 2.04 0.85-1.17 H [facility]QftndorSUBZGBYVYM5210-00-56 09:59:00 Test Item Value Reference Range Interpretation Comments PROTIME (test code = PROTIME) 22.7 s 12.0-14.7 H [facility]FdlnrchFKFCENWFJM1535-86-78 09:59:00 Test Item Value Reference Range Interpretation Comments Basophils # (test code 0.1 See_Comment N [Aut omated message] The = Basophils #) system which generated this result tra nsmitted reference range : <=0.2. The reference r andreia was not used to int erpret this result as normal/abnormal . [facility]PjqdlobSHIXTDJPJL1106-91-79 09:59:00 Test Item Value Reference Range Interpretation Comments Eosinophils # (test code 0.4 See_Comment N [A utomated message] The = Eosinophils #) system whic h generated this result tra nsmitted reference range : <=0.5. The reference r andreia was not used to int erpret this result as normal/abnormal . [facility] NortheastTaanbaoUVVTJITKER0260-16-10 09:59:00 Test Item Value Reference Range Interpretation Comments Monocytes # (test code 0.7 See_Comment N [Aut omated message] The = Monocytes #) system which generated this result tra nsmitted reference range : <=0.8. The reference r andreia was not used to int erpret this result as normal/abnormal . [facility] NortheastUpqmguyJAHPDGJFOC3640-94-36 09:59:00 Test Item Value Reference Range Interpretation Comments Lymphocytes # (test code = Lymphocytes 2.7 1.0-5.5 N #) [facility]AxnerewBHTUFZWXIS9784-96-13 09:59:00 Test Item Value Reference Range Interpretation Comments Segs-Bands # (test code = Segs-Bands #) 4.7 1.5-8.1 N [facility] NortheastDhlpvzvOUUEZMUUZK8502-90-69 09:59:00 Test Item Value Reference Range Interpretation Comments Basophils (test code = 0.8 See_Comment N [Aut omated message] The Basophils) system which ge nerated this result tra nsmitted reference range : <=1.0. The reference r andreia was not used to int erpret this result as normal/abnormal . [facility]DezwktuIXZAFFQVMG9097-97-86 09:59:00 Test Item Value Reference Range Interpretation Comments Eosinophils (test code = 5.1 See_Comment H [A utomated message] The Eosinophils) system which ge nerated this result tra nsmitted reference range : <=4.0. The reference r andreia was not used to int erpret this result as normal/abnormal . [facility]FvquhtzIJBGTGFCWK7703-00-31 09:59:00 Test Item Value Reference Range Interpretation Comments Lymphocytes (test code = Lymphocytes) 31.8 20.0-40.0 N [facility] NortheastCtyqyxnSFXHRBENAL9218-96-42 09:59:00 Test Item Value Reference Range Interpretation Comments Segs (test code = Segs) 54.5 45.0-75.0 N [facility]JlmchbbQSHCQQAXTO6186-01-58 09:59:00 Test Item Value Reference Range Interpretation Comments Monocytes (test code = Monocytes) 7.8 2.0-12.0 N [facility] NortheastKvfarmmZKPCHARUQF1359-00-98 09:59:00 Test Item Value Reference Range Interpretation Comments WBC X 10x3 (test code = WBC X 10x3) 8.7 3.7-10.4 N [facility] NortheastZttllihUGTXTNCTCU4847-92-93 09:59:00 Test Item Value Reference Range Interpretation Comments MCHC (test code = MCHC) 33.1 32.0-36.0 N [facility] NortheastDlglcmjACTCMEOPVA3936-24-96 09:59:00 Test Item Value Reference Range Interpretation Comments RBC X 10x6 (test code = RBC X 10x6) 2.83 4.20-5.40 L [facility] NortheastOgmiekaOOISZRRRAA5770-03-60 09:59:00 Test Item Value Reference Range Interpretation Comments Platelet (test code = Platelet) 544 133-450 H [facility] NortheastSrsthfcBQNJHUQGKH8073-96-63 09:59:00 Test Item Value Reference Range Interpretation Comments MPV (test code = MPV) 6.7 7.4-10.4 L [facility] NortheastZdbzkjsKMPLWDQNWY3024-51-75 09:59:00 Test Item Value Reference Range Interpretation Comments RDW (test code = RDW) 14.4 11.5-14.5 N [facility] NortheastAlaawdxDMCJZUAMDO4961-69-47 09:59:00 Test Item Value Reference Range Interpretation Comments Hgb (test code = Hgb) 8.5 12.0-16.0 L [facility] NortheastGqongepCAOHHFHCEP2721-36-92 09:59:00 Test Item Value Reference Range Interpretation Comments MCH (test code = MCH) 30.2 pg 27.0-31.0 N [facility]ObpxlqkZUZTBOWRBB0402-96-23 09:59:00 Test Item Value Reference Range Interpretation Comments Hct (test code = Hct) 25.8 36.0-48.0 L [facility] NortheastDmnhaygDRYCPZYPPH2758-56-46 09:59:00 Test Item Value Reference Range Interpretation Comments MCV (test code = MCV) 91.2 81.0-99.0 N [facility] CenterCgslarrLTOUCRXLN4556-31-22 09:59:00 Test Item Value Reference Range Interpretation Comments AGAP (test code = AGAP) 13.3 10.0-20.0 N [facility] CenterBfscerhQHCZXSHML6363-17-45 09:59:00 Test Item Value Reference Range Interpretation Comments Glucose Lvl (test code = Glucose Lvl) 119 70-99 H [facility] CenterNjlbfifVCJNRGRGN0478-25-49 09:59:00 Test Item Value Reference Range Interpretation Comments Chloride Lvl (test code = Chloride Lvl) 107 95-109 N [facility] CenterMmawlfbTGSDYPKSB4255-31-29 09:59:00 Test Item Value Reference Range Interpretation Comments Potassium Lvl (test code = Potassium 4.3 3.5-5.1 N Lvl) [facility] CenterSkrgbcwSZIISZQJC5362-69-04 09:59:00 Test Item Value Reference Range Interpretation Comments BUN (test code = BUN) 26 7-22 H [facility] CenterPxuozinMWKIWSSTU1100-45-38 09:59:00 Test Item Value Reference Range Interpretation Comments Sodium Lvl (test code = Sodium Lvl) 141 135-145 N [facility] CenterGdraxubIUKBBGBPU7158-87-49 09:59:00 Test Item Value Reference Range Interpretation Comments Creatinine Lvl (test code = Creatinine 1.2 0.5-1.4 N Lvl) [facility] CenterPnsskueOJLNPLLXA8500-06-73 09:59:00 Test Item Value Reference Range Interpretation Comments Calcium Lvl (test code = Calcium Lvl) 8.2 8.5-10.5 L [facility] CenterFoftjbzNNODZTNTR4587-07-33 09:59:00 Test Item Value Reference Range Interpretation Comments CO2 (test code = CO2) 25 24-32 N [facility] CenterVbbrlepUXCOIHPWB9861-73-83 09:59:00 Test Item Value Reference Range Interpretation Comments eGFR (test code = eGFR) 43 [facility]JvicvnwOEXPJYHGJY8012-05-46 09:59:00 Test Item Value Reference Range Interpretation Comments INR (test code = INR) 2.04 0.85-1.17 H [facility]CgabhmlZIKTOXMGBK1424-19-18 09:59:00 Test Item Value Reference Range Interpretation Comments PROTIME (test code = PROTIME) 22.7 s 12.0-14.7 H [facility] NortheastJvjfbtjPWOYKQWNMG7769-81-85 09:59:00 Test Item Value Reference Range Interpretation Comments Basophils # (test code 0.1 See_Comment N [Aut omated message] The = Basophils #) system which generated this result tra nsmitted reference range : <=0.2. The reference r andreia was not used to int erpret this result as normal/abnormal . [facility] NortheastNhcrftuXAWPDBCDPC8161-82-83 09:59:00 Test Item Value Reference Range Interpretation Comments Eosinophils # (test code 0.4 See_Comment N [A utomated message] The = Eosinophils #) system whic h generated this result tra nsmitted reference range : <=0.5. The reference r andreia was not used to int erpret this result as normal/abnormal . [facility] NortheastCelepuwWFUFRUVTHL6467-17-04 09:59:00 Test Item Value Reference Range Interpretation Comments Monocytes # (test code 0.7 See_Comment N [Aut omated message] The = Monocytes #) system which generated this result tra nsmitted reference range : <=0.8. The reference r andreia was not used to int erpret this result as normal/abnormal . [facility] NortheastHslpepnCKDTHONMNN1026-87-84 09:59:00 Test Item Value Reference Range Interpretation Comments Lymphocytes # (test code = Lymphocytes 2.7 1.0-5.5 N #) [facility]OxxvaojDVVMQGOVMR1738-70-87 09:59:00 Test Item Value Reference Range Interpretation Comments Segs-Bands # (test code = Segs-Bands #) 4.7 1.5-8.1 N [facility]YvwvggwKFFAUYSMLI6922-80-00 09:59:00 Test Item Value Reference Range Interpretation Comments Basophils (test code = 0.8 See_Comment N [Aut omated message] The Basophils) system which ge nerated this result tra nsmitted reference range : <=1.0. The reference r andreia was not used to int erpret this result as normal/abnormal . [facility] CenterTaucrmjOYVEPXXWR4821-49-46 09:59:00 Test Item Value Reference Range Interpretation Comments AGAP (test code = AGAP) 13.3 10.0-20.0 N [facility] CenterAaymnfsRPNWPNGQA2105-37-34 09:59:00 Test Item Value Reference Range Interpretation Comments Glucose Lvl (test code = Glucose Lvl) 119 70-99 H [facility] CenterTezekadDVKFLQKKW5887-59-99 09:59:00 Test Item Value Reference Range Interpretation Comments Chloride Lvl (test code = Chloride Lvl) 107 95-109 N [facility] CenterXxzetjoCJJCUUEND9654-06-96 09:59:00 Test Item Value Reference Range Interpretation Comments Potassium Lvl (test code = Potassium 4.3 3.5-5.1 N Lvl) [facility] CenterMqgdplpTATCDMHJS8936-21-88 09:59:00 Test Item Value Reference Range Interpretation Comments BUN (test code = BUN) 26 7-22 H [facility] CenterLqguvraRIEXIMMXS9504-94-60 09:59:00 Test Item Value Reference Range Interpretation Comments Sodium Lvl (test code = Sodium Lvl) 141 135-145 N [facility]NrgrwxfVXZDCVNUUH1475-00-54 09:59:00 Test Item Value Reference Range Interpretation Comments Eosinophils (test code = 5.1 See_Comment H [A utomated message] The Eosinophils) system which ge nerated this result tra nsmitted reference range : <=4.0. The reference r andreia was not used to int erpret this result as normal/abnormal . [facility] CenterZouhpdnXBOGVHVFX5691-08-31 09:59:00 Test Item Value Reference Range Interpretation Comments Creatinine Lvl (test code = Creatinine 1.2 0.5-1.4 N Lvl) [facility] CenterQjrssbzRZPVTRQXV0476-45-89 09:59:00 Test Item Value Reference Range Interpretation Comments Calcium Lvl (test code = Calcium Lvl) 8.2 8.5-10.5 L [facility] CenterTweqglcIIYIMGOMA7526-60-44 09:59:00 Test Item Value Reference Range Interpretation Comments CO2 (test code = CO2) 25 24-32 N [facility] CenterQrafmjxMPKHIPMFW0689-99-51 09:59:00 Test Item Value Reference Range Interpretation Comments eGFR (test code = eGFR) 43 [facility]HfvzxnoWJGOZXMQDP9052-99-51 09:59:00 Test Item Value Reference Range Interpretation Comments INR (test code = INR) 2.04 0.85-1.17 H [facility]JbzhjsjKGJJOUYDRE5504-99-63 09:59:00 Test Item Value Reference Range Interpretation Comments PROTIME (test code = PROTIME) 22.7 s 12.0-14.7 H [facility] NortheastLpwdusgAGMMVYZOQB2579-80-06 09:59:00 Test Item Value Reference Range Interpretation Comments Basophils # (test code 0.1 See_Comment N [Aut omated message] The = Basophils #) system which generated this result tra nsmitted reference range : <=0.2. The reference r andreia was not used to int erpret this result as normal/abnormal . [facility] NortheastYpykxokPDQJCJYNTO6796-69-22 09:59:00 Test Item Value Reference Range Interpretation Comments Eosinophils # (test code 0.4 See_Comment N [A utomated message] The = Eosinophils #) system whic h generated this result tra nsmitted reference range : <=0.5. The reference r andreia was not used to int erpret this result as normal/abnormal . [facility] NortheastRjcxluuQKCWPATXOL3727-88-10 09:59:00 Test Item Value Reference Range Interpretation Comments Monocytes # (test code 0.7 See_Comment N [Aut omated message] The = Monocytes #) system which generated this result tra nsmitted reference range : <=0.8. The reference r andreia was not used to int erpret this result as normal/abnormal . [facility] NortheastLbyyaqjNLVGKAIHLB8509-67-62 09:59:00 Test Item Value Reference Range Interpretation Comments Lymphocytes # (test code = Lymphocytes 2.7 1.0-5.5 N #) [facility]RfsowumVZFHFYMNCD7643-81-88 09:59:00 Test Item Value Reference Range Interpretation Comments Lymphocytes (test code = Lymphocytes) 31.8 20.0-40.0 N [facility] NortheastLkyslpqBUANLSQZWK0122-42-54 09:59:00 Test Item Value Reference Range Interpretation Comments Segs-Bands # (test code = Segs-Bands #) 4.7 1.5-8.1 N [facility] NortheastQekjzohNCOKFSALWY8556-20-15 09:59:00 Test Item Value Reference Range Interpretation Comments Basophils (test code = 0.8 See_Comment N [Aut omated message] The Basophils) system which ge nerated this result tra nsmitted reference range : <=1.0. The reference r andreia was not used to int erpret this result as normal/abnormal . [facility] NortheastWjpipegCHNGSVANRZ3137-38-54 09:59:00 Test Item Value Reference Range Interpretation Comments Eosinophils (test code = 5.1 See_Comment H [A utomated message] The Eosinophils) system which ge nerated this result tra nsmitted reference range : <=4.0. The reference r andreia was not used to int erpret this result as normal/abnormal . [facility] NortheastOourzobQKUNUESHXI4254-57-12 09:59:00 Test Item Value Reference Range Interpretation Comments Lymphocytes (test code = Lymphocytes) 31.8 20.0-40.0 N [facility]KuqhkheLULVLKSAAI1138-08-74 09:59:00 Test Item Value Reference Range Interpretation Comments Segs (test code = Segs) 54.5 45.0-75.0 N [facility] NortheastRvfqhbjWOLXKRFCYH9792-70-34 09:59:00 Test Item Value Reference Range Interpretation Comments Monocytes (test code = Monocytes) 7.8 2.0-12.0 N [facility] NortheastRqtoxnmDNZTKJWBZM4294-63-48 09:59:00 Test Item Value Reference Range Interpretation Comments WBC X 10x3 (test code = WBC X 10x3) 8.7 3.7-10.4 N [facility]QyplrulJHIUDDTHCA2637-78-39 09:59:00 Test Item Value Reference Range Interpretation Comments MCHC (test code = MCHC) 33.1 32.0-36.0 N [facility] NortheastLbkjsctIOUJQWBKON5621-71-70 09:59:00 Test Item Value Reference Range Interpretation Comments RBC X 10x6 (test code = RBC X 10x6) 2.83 4.20-5.40 L [facility] NortheastTomxonqTDWTCVALOJ5557-18-97 09:59:00 Test Item Value Reference Range Interpretation Comments Platelet (test code = Platelet) 544 133-450 H [facility] NortheastQsargyzVPVKCYPIMK7722-99-50 09:59:00 Test Item Value Reference Range Interpretation Comments Segs (test code = Segs) 54.5 45.0-75.0 N [facility] NortheastScyxhgyYCXXFRDBMT9845-48-67 09:59:00 Test Item Value Reference Range Interpretation Comments MPV (test code = MPV) 6.7 7.4-10.4 L [facility] NortheastZnijgkyEGRMHZUWCF7925-01-97 09:59:00 Test Item Value Reference Range Interpretation Comments RDW (test code = RDW) 14.4 11.5-14.5 N [facility] NortheastAibgeswPUUTFYSAMI1970-05-75 09:59:00 Test Item Value Reference Range Interpretation Comments Hgb (test code = Hgb) 8.5 12.0-16.0 L [facility] NortheastDluhlehCZRQXYMXZM9047-65-03 09:59:00 Test Item Value Reference Range Interpretation Comments MCH (test code = MCH) 30.2 pg 27.0-31.0 N [facility] NortheastHbzuqmgLVMROALLQA4207-60-96 09:59:00 Test Item Value Reference Range Interpretation Comments Hct (test code = Hct) 25.8 36.0-48.0 L [facility]QdofadpEIKPSLGQHO9684-41-45 09:59:00 Test Item Value Reference Range Interpretation Comments MCV (test code = MCV) 91.2 81.0-99.0 N [facility]XckdijwKASXWFYVXW8740-71-13 09:59:00 Test Item Value Reference Range Interpretation Comments Monocytes (test code = Monocytes) 7.8 2.0-12.0 N [facility] NortheastYloldsyXGJTAHQJDC1786-03-97 09:59:00 Test Item Value Reference Range Interpretation Comments WBC X 10x3 (test code = WBC X 10x3) 8.7 3.7-10.4 N [facility] NortheastWyadabnBSASRJRBGL7848-45-86 09:59:00 Test Item Value Reference Range Interpretation Comments MCHC (test code = MCHC) 33.1 32.0-36.0 N [facility]InfskwuDLWHPAINYI3723-54-32 09:59:00 Test Item Value Reference Range Interpretation Comments RBC X 10x6 (test code = RBC X 10x6) 2.83 4.20-5.40 L [facility] NortheastPgfifedRYJLXUBBPP6972-77-87 09:59:00 Test Item Value Reference Range Interpretation Comments Platelet (test code = Platelet) 544 133-450 H [facility] NortheastUxrxbfyBFWWMMRPRI7322-58-85 09:59:00 Test Item Value Reference Range Interpretation Comments MPV (test code = MPV) 6.7 7.4-10.4 L [facility] NortheastOirdlwpULDLUEVPET7463-28-29 09:59:00 Test Item Value Reference Range Interpretation Comments RDW (test code = RDW) 14.4 11.5-14.5 N [facility] NortheastQftvmglYUDQWEEOGG4668-64-68 09:59:00 Test Item Value Reference Range Interpretation Comments Hgb (test code = Hgb) 8.5 12.0-16.0 L [facility]QusdkdnQZVXWMMZMP7052-21-33 09:59:00 Test Item Value Reference Range Interpretation Comments MCH (test code = MCH) 30.2 pg 27.0-31.0 N [facility] NortheastDtlbmrbXTQBHLCWJA2349-02-26 09:59:00 Test Item Value Reference Range Interpretation Comments Hct (test code = Hct) 25.8 36.0-48.0 L [facility]BgbiatoWCINBZRMSK8001-84-71 09:59:00 Test Item Value Reference Range Interpretation Comments MCV (test code = MCV) 91.2 81.0-99.0 N [facility] CenterPcdjtgwTJGSKHIYJ3958-28-23 09:59:00 Test Item Value Reference Range Interpretation Comments AGAP (test code = AGAP) 13.3 10.0-20.0 N [facility] CenterCxhpjuoPTFTDYIZO3267-00-84 09:59:00 Test Item Value Reference Range Interpretation Comments Glucose Lvl (test code = Glucose Lvl) 119 70-99 H [facility] CenterEjfdentKLDNIARAT8324-54-39 09:59:00 Test Item Value Reference Range Interpretation Comments Chloride Lvl (test code = Chloride Lvl) 107 95-109 N [facility] CenterWykgqqxJLFFJTQGI3129-65-98 09:59:00 Test Item Value Reference Range Interpretation Comments Potassium Lvl (test code = Potassium 4.3 3.5-5.1 N Lvl) [facility] CenterJepuypbLGRAGKUAL6049-29-77 09:59:00 Test Item Value Reference Range Interpretation Comments BUN (test code = BUN) 26 7-22 H [facility] CenterVsnwnvvHCQXFUAZB7240-06-93 09:59:00 Test Item Value Reference Range Interpretation Comments Sodium Lvl (test code = Sodium Lvl) 141 135-145 N [facility] CenterGylrnolVADCACVWS0156-02-01 09:59:00 Test Item Value Reference Range Interpretation Comments Creatinine Lvl (test code = Creatinine 1.2 0.5-1.4 N Lvl) [facility] CenterEgckyyjUAQEXLGLE2523-30-36 09:59:00 Test Item Value Reference Range Interpretation Comments Calcium Lvl (test code = Calcium Lvl) 8.2 8.5-10.5 L [facility] CenterMgfbmtgLRYBMKFYY6121-07-03 09:59:00 Test Item Value Reference Range Interpretation Comments CO2 (test code = CO2) 25 24-32 N [facility] CenterEohaqwiYWIZLPZHB3774-00-38 09:59:00 Test Item Value Reference Range Interpretation Comments eGFR (test code = eGFR) 43 [facility]NtavvvtHBVTEOXKYK3704-69-10 09:59:00 Test Item Value Reference Range Interpretation Comments INR (test code = INR) 2.04 0.85-1.17 H [facility] NortheastUwawluoMFWDIMIGPK4882-43-98 09:59:00 Test Item Value Reference Range Interpretation Comments PROTIME (test code = PROTIME) 22.7 s 12.0-14.7 H [facility] NortheastWpsbsxvVKUZNFUPYJ3326-66-75 09:59:00 Test Item Value Reference Range Interpretation Comments Basophils # (test code 0.1 See_Comment N [Aut omated message] The = Basophils #) system which generated this result tra nsmitted reference range : <=0.2. The reference r andreia was not used to int erpret this result as normal/abnormal . [facility] NortheastMvwrrvqCQBTUXXAMG6118-65-81 09:59:00 Test Item Value Reference Range Interpretation Comments Eosinophils # (test code 0.4 See_Comment N [A utomated message] The = Eosinophils #) system whic h generated this result tra nsmitted reference range : <=0.5. The reference r andreia was not used to int erpret this result as normal/abnormal . [facility] NortheastQujzmajCCUYJXSSZB4212-83-32 09:59:00 Test Item Value Reference Range Interpretation Comments Monocytes # (test code 0.7 See_Comment N [Aut omated message] The = Monocytes #) system which generated this result tra nsmitted reference range : <=0.8. The reference r andreia was not used to int erpret this result as normal/abnormal . [facility] NortheastMphynjdXWTZHKNRCJ9188-31-27 09:59:00 Test Item Value Reference Range Interpretation Comments Lymphocytes # (test code = Lymphocytes 2.7 1.0-5.5 N #) [facility] NortheastMdojemnBFCZFEYOPZ5268-45-11 09:59:00 Test Item Value Reference Range Interpretation Comments Segs-Bands # (test code = Segs-Bands #) 4.7 1.5-8.1 N [facility] NortheastDjonfemVKUVAXQWEJ9562-07-43 09:59:00 Test Item Value Reference Range Interpretation Comments Basophils (test code = 0.8 See_Comment N [Aut omated message] The Basophils) system which ge nerated this result tra nsmitted reference range : <=1.0. The reference r andreia was not used to int erpret this result as normal/abnormal . [facility]GkkmcjwAJADAXHIMN8554-34-38 09:59:00 Test Item Value Reference Range Interpretation Comments Eosinophils (test code = 5.1 See_Comment H [A utomated message] The Eosinophils) system which ge nerated this result tra nsmitted reference range : <=4.0. The reference r andreia was not used to int erpret this result as normal/abnormal . [facility] NortheastByrdvwaPHUHYCXDFZ7021-66-74 09:59:00 Test Item Value Reference Range Interpretation Comments Lymphocytes (test code = Lymphocytes) 31.8 20.0-40.0 N [facility] NortheastOwkxbzpGUZQRZQKFH2509-84-75 09:59:00 Test Item Value Reference Range Interpretation Comments Segs (test code = Segs) 54.5 45.0-75.0 N [facility] NortheastYzwjnpnZIRLIEWHOY2517-23-34 09:59:00 Test Item Value Reference Range Interpretation Comments Monocytes (test code = Monocytes) 7.8 2.0-12.0 N [facility] NortheastPjyujxmFJZSARYDPH1373-64-26 09:59:00 Test Item Value Reference Range Interpretation Comments WBC X 10x3 (test code = WBC X 10x3) 8.7 3.7-10.4 N [facility] NortheastSkooyruDDTQFWUAJA2696-52-22 09:59:00 Test Item Value Reference Range Interpretation Comments MCHC (test code = MCHC) 33.1 32.0-36.0 N [facility] NortheastUccnwhlCDYVGQSPYY2125-36-66 09:59:00 Test Item Value Reference Range Interpretation Comments RBC X 10x6 (test code = RBC X 10x6) 2.83 4.20-5.40 L [facility] NortheastRxewnllRVKLOSEJKD0537-01-28 09:59:00 Test Item Value Reference Range Interpretation Comments Platelet (test code = Platelet) 544 133-450 H [facility] NortheastXgzuxkiFQRMGCYCMC2222-74-93 09:59:00 Test Item Value Reference Range Interpretation Comments MPV (test code = MPV) 6.7 7.4-10.4 L [facility] NortheastFrpjeneUBKXYQNEZI3496-75-43 09:59:00 Test Item Value Reference Range Interpretation Comments RDW (test code = RDW) 14.4 11.5-14.5 N [facility] NortheastSxkaayvZRBROCTWYL0755-76-80 09:59:00 Test Item Value Reference Range Interpretation Comments Hgb (test code = Hgb) 8.5 12.0-16.0 L [facility] NortheastPpuwahxMCJMCJZTRL1937-10-69 09:59:00 Test Item Value Reference Range Interpretation Comments MCH (test code = MCH) 30.2 pg 27.0-31.0 N [facility] NortheastFejodunUPBEYNXXZK2927-83-60 09:59:00 Test Item Value Reference Range Interpretation Comments Hct (test code = Hct) 25.8 36.0-48.0 L [facility] NortheastDjfakcaZZKWPKEUGG5114-23-10 09:59:00 Test Item Value Reference Range Interpretation Comments MCV (test code = MCV) 91.2 81.0-99.0 N [facility]NedaevjEDQFIADGI2044-92-98 09:59:00 Test Item Value Reference Range Interpretation Comments AGAP (test code = AGAP) 13.3 10.0-20.0 N [facility] CenterGrtgcynTYOEVSVED5419-52-55 09:59:00 Test Item Value Reference Range Interpretation Comments Glucose Lvl (test code = Glucose Lvl) 119 70-99 H [facility] CenterDooojuhEVSKNKXJJ7422-58-73 09:59:00 Test Item Value Reference Range Interpretation Comments Chloride Lvl (test code = Chloride Lvl) 107 95-109 N [facility] CenterRdfosufVEVKAEQJF6015-04-17 09:59:00 Test Item Value Reference Range Interpretation Comments Potassium Lvl (test code = Potassium 4.3 3.5-5.1 N Lvl) [facility] CenterTyrvaeiUEXGCUAOG0212-53-30 09:59:00 Test Item Value Reference Range Interpretation Comments BUN (test code = BUN) 26 7-22 H [facility] CenterFneuwmdBVUIVONXW4280-68-08 09:59:00 Test Item Value Reference Range Interpretation Comments Sodium Lvl (test code = Sodium Lvl) 141 135-145 N [facility] CenterFhksoltHPKRHWFFS2165-03-93 09:59:00 Test Item Value Reference Range Interpretation Comments Creatinine Lvl (test code = Creatinine 1.2 0.5-1.4 N Lvl) [facility] CenterDfgabjwIYEEFIEUH9585-22-22 09:59:00 Test Item Value Reference Range Interpretation Comments Calcium Lvl (test code = Calcium Lvl) 8.2 8.5-10.5 L [facility] CenterLbaxlyuUQWMAGXMT8651-89-65 09:59:00 Test Item Value Reference Range Interpretation Comments CO2 (test code = CO2) 25 24-32 N [facility] CenterDlnsyvkNNBARGLEB8285-16-26 09:59:00 Test Item Value Reference Range Interpretation Comments eGFR (test code = eGFR) 43 [facility]AeqshddNPDYYBFNLO4857-16-25 09:59:00 Test Item Value Reference Range Interpretation Comments INR (test code = INR) 2.04 0.85-1.17 H [facility] NortheastPuibjppZKQKVZKEPP7753-73-56 09:59:00 Test Item Value Reference Range Interpretation Comments PROTIME (test code = PROTIME) 22.7 s 12.0-14.7 H [facility] NortheastTovwphmHUWGMMPBQD9667-04-78 09:59:00 Test Item Value Reference Range Interpretation Comments Basophils # (test code 0.1 See_Comment N [Aut omated message] The = Basophils #) system which generated this result tra nsmitted reference range : <=0.2. The reference r andreia was not used to int erpret this result as normal/abnormal . [facility] NortheastFbojnqjVCRRHKDFNJ5528-24-64 09:59:00 Test Item Value Reference Range Interpretation Comments Eosinophils # (test code 0.4 See_Comment N [A utomated message] The = Eosinophils #) system whic h generated this result tra nsmitted reference range : <=0.5. The reference r andreia was not used to int erpret this result as normal/abnormal . [facility] NortheastUhyxaigWAMONEORXN5630-17-78 09:59:00 Test Item Value Reference Range Interpretation Comments Monocytes # (test code 0.7 See_Comment N [Aut omated message] The = Monocytes #) system which generated this result tra nsmitted reference range : <=0.8. The reference r andreia was not used to int erpret this result as normal/abnormal . [facility] NortheastQqeasjmAXQITOARDQ4382-35-43 09:59:00 Test Item Value Reference Range Interpretation Comments Lymphocytes # (test code = Lymphocytes 2.7 1.0-5.5 N #) [facility] NortheastJxuckfuRARKLNCEHR7432-52-71 09:59:00 Test Item Value Reference Range Interpretation Comments Segs-Bands # (test code = Segs-Bands #) 4.7 1.5-8.1 N [facility] NortheastKiqnsewGUQRHLGFFU1857-03-09 09:59:00 Test Item Value Reference Range Interpretation Comments Basophils (test code = 0.8 See_Comment N [Aut omated message] The Basophils) system which ge nerated this result tra nsmitted reference range : <=1.0. The reference r andreia was not used to int erpret this result as normal/abnormal . [facility] NortheastPyuzgmmTUZNOMKDIM1738-63-71 09:59:00 Test Item Value Reference Range Interpretation Comments Eosinophils (test code = 5.1 See_Comment H [A utomated message] The Eosinophils) system which ge nerated this result tra nsmitted reference range : <=4.0. The reference r andreia was not used to int erpret this result as normal/abnormal . [facility] NortheastJkbcccdJFUIGCILDS9965-01-26 09:59:00 Test Item Value Reference Range Interpretation Comments Lymphocytes (test code = Lymphocytes) 31.8 20.0-40.0 N [facility] NortheastJzkhddoTSQQERIWIB3582-29-03 09:59:00 Test Item Value Reference Range Interpretation Comments Segs (test code = Segs) 54.5 45.0-75.0 N [facility] NortheastBgpzjjuSDRDOSXRGS3059-62-18 09:59:00 Test Item Value Reference Range Interpretation Comments Monocytes (test code = Monocytes) 7.8 2.0-12.0 N [facility] NortheastEkmyaelVXYVYCLCHQ2124-30-85 09:59:00 Test Item Value Reference Range Interpretation Comments WBC X 10x3 (test code = WBC X 10x3) 8.7 3.7-10.4 N [facility] NortheastHibdfrcPBJCVHYUTO3605-48-91 09:59:00 Test Item Value Reference Range Interpretation Comments MCHC (test code = MCHC) 33.1 32.0-36.0 N [facility] NortheastSgvqvntOHQZJSDEVS0239-58-41 09:59:00 Test Item Value Reference Range Interpretation Comments RBC X 10x6 (test code = RBC X 10x6) 2.83 4.20-5.40 L [facility] NortheastGnbvdxkWSYYCTZRLQ5019-01-61 09:59:00 Test Item Value Reference Range Interpretation Comments Platelet (test code = Platelet) 544 133-450 H [facility] NortheastEzivqfaCMJBHFBZCP5877-72-44 09:59:00 Test Item Value Reference Range Interpretation Comments MPV (test code = MPV) 6.7 7.4-10.4 L [facility] NortheastYmejhxiAKVQIAIHJF6086-97-46 09:59:00 Test Item Value Reference Range Interpretation Comments RDW (test code = RDW) 14.4 11.5-14.5 N [facility] NortheastMrkxoloILCVIKBEBB1347-42-65 09:59:00 Test Item Value Reference Range Interpretation Comments Hgb (test code = Hgb) 8.5 12.0-16.0 L [facility] NortheastFxpgdhlPWMVNBBJQW5134-34-23 09:59:00 Test Item Value Reference Range Interpretation Comments MCH (test code = MCH) 30.2 pg 27.0-31.0 N [facility] NortheastTvtlzviBKIKTINETS1221-07-38 09:59:00 Test Item Value Reference Range Interpretation Comments Hct (test code = Hct) 25.8 36.0-48.0 L [facility] NortheastSyztbumUIAJOESACR1858-01-86 09:59:00 Test Item Value Reference Range Interpretation Comments MCV (test code = MCV) 91.2 81.0-99.0 N [facility] CenterPazplsaBULFAMPFO4319-98-73 09:59:00 Test Item Value Reference Range Interpretation Comments AGAP (test code = AGAP) 13.3 10.0-20.0 N [facility] CenterRrabcruUQOUDLVPA8708-22-97 09:59:00 Test Item Value Reference Range Interpretation Comments Glucose Lvl (test code = Glucose Lvl) 119 70-99 H [facility] CenterTwfxtddGUGTQSQIA5784-06-93 09:59:00 Test Item Value Reference Range Interpretation Comments Chloride Lvl (test code = Chloride Lvl) 107 95-109 N [facility] CenterLxhissoVZDTMMWTC6842-80-92 09:59:00 Test Item Value Reference Range Interpretation Comments Potassium Lvl (test code = Potassium 4.3 3.5-5.1 N Lvl) [facility] CenterLxrigsbIRAKOGYXG7947-66-01 09:59:00 Test Item Value Reference Range Interpretation Comments BUN (test code = BUN) 26 7-22 H [facility] CenterUvmgyhaBCCZIIRDX9635-37-60 09:59:00 Test Item Value Reference Range Interpretation Comments Sodium Lvl (test code = Sodium Lvl) 141 135-145 N [facility] CenterUttuvhbLNHSNADSX5857-37-04 09:59:00 Test Item Value Reference Range Interpretation Comments Creatinine Lvl (test code = Creatinine 1.2 0.5-1.4 N Lvl) [facility] CenterVzgckpnGMHKFLJTX0544-95-84 09:59:00 Test Item Value Reference Range Interpretation Comments Calcium Lvl (test code = Calcium Lvl) 8.2 8.5-10.5 L [facility] CenterHghuhotSQZSUXQIK8063-00-02 09:59:00 Test Item Value Reference Range Interpretation Comments CO2 (test code = CO2) 25 24-32 N [facility]UmpawixALOYJBIIL3049-38-31 09:59:00 Test Item Value Reference Range Interpretation Comments eGFR (test code = eGFR) 43 [facility] NortheastBippmdmNZGHDQAAJE4846-21-50 09:59:00 Test Item Value Reference Range Interpretation Comments INR (test code = INR) 2.04 0.85-1.17 H [facility] NortheastRgswogxZDAWEVYMBJ4028-91-43 09:59:00 Test Item Value Reference Range Interpretation Comments PROTIME (test code = PROTIME) 22.7 s 12.0-14.7 H [facility] NortheastDplbqpxRSEIKRLIXR6312-22-07 09:59:00 Test Item Value Reference Range Interpretation Comments Basophils # (test code 0.1 See_Comment N [Aut omated message] The = Basophils #) system which generated this result tra nsmitted reference range : <=0.2. The reference r andreia was not used to int erpret this result as normal/abnormal . [facility] NortheastYabxgzaIOLQYAUQYS6165-17-54 09:59:00 Test Item Value Reference Range Interpretation Comments Eosinophils # (test code 0.4 See_Comment N [A utomated message] The = Eosinophils #) system whic h generated this result tra nsmitted reference range : <=0.5. The reference r andreia was not used to int erpret this result as normal/abnormal . [facility] NortheastWanjxmdYKFISUELAG3972-89-09 09:59:00 Test Item Value Reference Range Interpretation Comments Monocytes # (test code 0.7 See_Comment N [Aut omated message] The = Monocytes #) system which generated this result tra nsmitted reference range : <=0.8. The reference r andreia was not used to int erpret this result as normal/abnormal . [facility] NortheastUktvmceFKZQVAFAWH4714-41-06 09:59:00 Test Item Value Reference Range Interpretation Comments Lymphocytes # (test code = Lymphocytes 2.7 1.0-5.5 N #) [facility]XsuomrzTQQBNABJOV7087-58-31 09:59:00 Test Item Value Reference Range Interpretation Comments Segs-Bands # (test code = Segs-Bands #) 4.7 1.5-8.1 N [facility] NortheastBgggbwmEGRYHJYFSS7939-67-06 09:59:00 Test Item Value Reference Range Interpretation Comments Basophils (test code = 0.8 See_Comment N [Aut omated message] The Basophils) system which ge nerated this result tra nsmitted reference range : <=1.0. The reference r andreia was not used to int erpret this result as normal/abnormal . [facility] NortheastXalppjyVUGNYTQKRZ3700-19-33 09:59:00 Test Item Value Reference Range Interpretation Comments Eosinophils (test code = 5.1 See_Comment H [A utomated message] The Eosinophils) system which ge nerated this result tra nsmitted reference range : <=4.0. The reference r andreia was not used to int erpret this result as normal/abnormal . [facility] NortheastIfiuhfsCKMCDQRVMF9442-29-03 09:59:00 Test Item Value Reference Range Interpretation Comments Lymphocytes (test code = Lymphocytes) 31.8 20.0-40.0 N [facility] NortheastPrlblaiSAZHPQALCS1695-70-36 09:59:00 Test Item Value Reference Range Interpretation Comments Segs (test code = Segs) 54.5 45.0-75.0 N [facility] NortheastKhrozmjGXSUYGDHPX2818-15-36 09:59:00 Test Item Value Reference Range Interpretation Comments Monocytes (test code = Monocytes) 7.8 2.0-12.0 N [facility] NortheastHzqqesrHXDGJJODOS2682-42-96 09:59:00 Test Item Value Reference Range Interpretation Comments WBC X 10x3 (test code = WBC X 10x3) 8.7 3.7-10.4 N [facility] NortheastSuxtvfwGHOCFZINGK1989-71-27 09:59:00 Test Item Value Reference Range Interpretation Comments MCHC (test code = MCHC) 33.1 32.0-36.0 N [facility] NortheastSflrsieXADCRUITYT7849-39-02 09:59:00 Test Item Value Reference Range Interpretation Comments RBC X 10x6 (test code = RBC X 10x6) 2.83 4.20-5.40 L [facility] NortheastKbktlsqNALNANBELT9988-64-20 09:59:00 Test Item Value Reference Range Interpretation Comments Platelet (test code = Platelet) 544 133-450 H [facility] NortheastUsmqmodALXWEUSLFI2749-39-21 09:59:00 Test Item Value Reference Range Interpretation Comments MPV (test code = MPV) 6.7 7.4-10.4 L [facility] NortheastJssixdvQOAZVZLINN3137-95-17 09:59:00 Test Item Value Reference Range Interpretation Comments RDW (test code = RDW) 14.4 11.5-14.5 N [facility] NortheastWgkeuraNSFXJPHGFB5710-93-71 09:59:00 Test Item Value Reference Range Interpretation Comments Hgb (test code = Hgb) 8.5 12.0-16.0 L [facility] NortheastZcqwsvaZRGYBLRCJB6996-66-90 09:59:00 Test Item Value Reference Range Interpretation Comments MCH (test code = MCH) 30.2 pg 27.0-31.0 N [facility] NortheastDclpeexOHOJJXUGPR3552-28-47 09:59:00 Test Item Value Reference Range Interpretation Comments Hct (test code = Hct) 25.8 36.0-48.0 L [facility] NortheastOmpmxrcUCSMVWBRLI2635-50-54 09:59:00 Test Item Value Reference Range Interpretation Comments MCV (test code = MCV) 91.2 81.0-99.0 N [facility] CenterErghxqbVCOULTQLB6466-94-49 09:59:00 Test Item Value Reference Range Interpretation Comments AGAP (test code = AGAP) 13.3 10.0-20.0 N [facility] CenterZgbwvwpJGPCSICRB1249-99-41 09:59:00 Test Item Value Reference Range Interpretation Comments Glucose Lvl (test code = Glucose Lvl) 119 70-99 H [facility] CenterLejcwdjAGUNNHJEB3488-31-04 09:59:00 Test Item Value Reference Range Interpretation Comments Chloride Lvl (test code = Chloride Lvl) 107 95-109 N [facility] CenterAvlcwzpQIZHWCJEU6357-58-85 09:59:00 Test Item Value Reference Range Interpretation Comments Potassium Lvl (test code = Potassium 4.3 3.5-5.1 N Lvl) [facility] CenterNvwyqztRNFVKFLPO0054-34-92 09:59:00 Test Item Value Reference Range Interpretation Comments BUN (test code = BUN) 26 7-22 H [facility] CenterPzpgazaLDBWQFADG4236-75-99 09:59:00 Test Item Value Reference Range Interpretation Comments Sodium Lvl (test code = Sodium Lvl) 141 135-145 N [facility] CenterQamvkwtVWFZNVEYA4621-58-30 09:59:00 Test Item Value Reference Range Interpretation Comments Creatinine Lvl (test code = Creatinine 1.2 0.5-1.4 N Lvl) [facility] CenterVyfksjzVMSIBBNFY0860-20-43 09:59:00 Test Item Value Reference Range Interpretation Comments Calcium Lvl (test code = Calcium Lvl) 8.2 8.5-10.5 L [facility] CenterHrrrbaoXQPHIXMZL8508-04-50 09:59:00 Test Item Value Reference Range Interpretation Comments CO2 (test code = CO2) 25 24-32 N [facility] CenterDhuvahcFMVHSETSM2470-08-44 09:59:00 Test Item Value Reference Range Interpretation Comments eGFR (test code = eGFR) 43 [facility] NortheastChnokmoKXLXXVRLLN9591-46-25 09:59:00 Test Item Value Reference Range Interpretation Comments INR (test code = INR) 2.04 0.85-1.17 H [facility] NortheastWfiabxzEMJNKHINNC7593-48-81 09:59:00 Test Item Value Reference Range Interpretation Comments PROTIME (test code = PROTIME) 22.7 s 12.0-14.7 H [facility] NortheastHdnmqmrWGLRHHLYTK4124-25-42 09:59:00 Test Item Value Reference Range Interpretation Comments Basophils # (test code 0.1 See_Comment N [Aut omated message] The = Basophils #) system which generated this result tra nsmitted reference range : <=0.2. The reference r andreia was not used to int erpret this result as normal/abnormal . [facility] NortheastDculijyLTIMENIDHS3002-47-87 09:59:00 Test Item Value Reference Range Interpretation Comments Eosinophils # (test code 0.4 See_Comment N [A utomated message] The = Eosinophils #) system whic h generated this result tra nsmitted reference range : <=0.5. The reference r andreia was not used to int erpret this result as normal/abnormal . [facility] NortheastHkosujiUUUAPWFUET8351-53-59 09:59:00 Test Item Value Reference Range Interpretation Comments Monocytes # (test code 0.7 See_Comment N [Aut omated message] The = Monocytes #) system which generated this result tra nsmitted reference range : <=0.8. The reference r andreia was not used to int erpret this result as normal/abnormal . [facility] NortheastPtayrmsYDQICVMWGQ0566-14-61 09:59:00 Test Item Value Reference Range Interpretation Comments Lymphocytes # (test code = Lymphocytes 2.7 1.0-5.5 N #) [facility] NortheastCmbtjnoWBHKRNRCXZ4224-34-89 09:59:00 Test Item Value Reference Range Interpretation Comments Segs-Bands # (test code = Segs-Bands #) 4.7 1.5-8.1 N [facility] NortheastAgiyyadYTZTPVBXCH9370-91-18 09:59:00 Test Item Value Reference Range Interpretation Comments Basophils (test code = 0.8 See_Comment N [Aut omated message] The Basophils) system which ge nerated this result tra nsmitted reference range : <=1.0. The reference r andreia was not used to int erpret this result as normal/abnormal . [facility] NortheastXvomrqoVSTCHWEDZQ4560-30-96 09:59:00 Test Item Value Reference Range Interpretation Comments Eosinophils (test code = 5.1 See_Comment H [A utomated message] The Eosinophils) system which ge nerated this result tra nsmitted reference range : <=4.0. The reference r andreia was not used to int erpret this result as normal/abnormal . [facility] NortheastYefmedrVPYHXCQTRG8334-01-30 09:59:00 Test Item Value Reference Range Interpretation Comments Lymphocytes (test code = Lymphocytes) 31.8 20.0-40.0 N [facility] NortheastPmnmzahOGVZFSYPGD2156-70-34 09:59:00 Test Item Value Reference Range Interpretation Comments Segs (test code = Segs) 54.5 45.0-75.0 N [facility] NortheastWiwhyozLECVDSGJGL8735-57-57 09:59:00 Test Item Value Reference Range Interpretation Comments Monocytes (test code = Monocytes) 7.8 2.0-12.0 N [facility] NortheastMcsohdlYHXWOQOVGE7431-77-88 09:59:00 Test Item Value Reference Range Interpretation Comments WBC X 10x3 (test code = WBC X 10x3) 8.7 3.7-10.4 N [facility] NortheastAavseklIJQRBQNUIA3426-66-25 09:59:00 Test Item Value Reference Range Interpretation Comments MCHC (test code = MCHC) 33.1 32.0-36.0 N [facility] NortheastJekejgbDFFQYPPPYB1137-41-78 09:59:00 Test Item Value Reference Range Interpretation Comments RBC X 10x6 (test code = RBC X 10x6) 2.83 4.20-5.40 L [facility] NortheastDwlezgxRQUIYXOFNU7165-26-60 09:59:00 Test Item Value Reference Range Interpretation Comments Platelet (test code = Platelet) 544 133-450 H [facility] NortheastMuahhcuLMGOKBXCGP3479-81-23 09:59:00 Test Item Value Reference Range Interpretation Comments MPV (test code = MPV) 6.7 7.4-10.4 L [facility] NortheastEjmupyfWBNVWCSBXJ4649-31-01 09:59:00 Test Item Value Reference Range Interpretation Comments RDW (test code = RDW) 14.4 11.5-14.5 N [facility] NortheastZpbvuzcUYHNKQNENO2860-15-31 09:59:00 Test Item Value Reference Range Interpretation Comments Hgb (test code = Hgb) 8.5 12.0-16.0 L [facility] NortheastGvaabovZFVMKASEBQ7676-91-93 09:59:00 Test Item Value Reference Range Interpretation Comments MCH (test code = MCH) 30.2 pg 27.0-31.0 N [facility] NortheastYjinaxzKMMZDDUJRL2015-51-39 09:59:00 Test Item Value Reference Range Interpretation Comments Hct (test code = Hct) 25.8 36.0-48.0 L [facility] NortheastWpunspaOUANQTYQNF1551-49-13 09:59:00 Test Item Value Reference Range Interpretation Comments MCV (test code = MCV) 91.2 81.0-99.0 N [facility] CenterCfavqirBKYDJXETO2026-47-27 09:59:00 Test Item Value Reference Range Interpretation Comments AGAP (test code = AGAP) 13.3 10.0-20.0 N [facility] CenterMpdtxrkNZIYIYJSP3079-20-69 09:59:00 Test Item Value Reference Range Interpretation Comments Glucose Lvl (test code = Glucose Lvl) 119 70-99 H [facility] CenterKvuorqnFTFMNLUID4383-25-96 09:59:00 Test Item Value Reference Range Interpretation Comments Chloride Lvl (test code = Chloride Lvl) 107 95-109 N [facility] CenterYbneyajFTYTBKQLM7398-18-90 09:59:00 Test Item Value Reference Range Interpretation Comments Potassium Lvl (test code = Potassium 4.3 3.5-5.1 N Lvl) [facility] CenterJglaysxVFFNMXDGU1522-59-61 09:59:00 Test Item Value Reference Range Interpretation Comments BUN (test code = BUN) 26 7-22 H [facility] CenterWmrvvhdLBQJXRKFA4832-48-75 09:59:00 Test Item Value Reference Range Interpretation Comments Sodium Lvl (test code = Sodium Lvl) 141 135-145 N [facility] CenterEdwfrnjCSARKTUVH4939-09-97 09:59:00 Test Item Value Reference Range Interpretation Comments Creatinine Lvl (test code = Creatinine 1.2 0.5-1.4 N Lvl) [facility] CenterUanlnrnCTLPUTQAQ0896-32-50 09:59:00 Test Item Value Reference Range Interpretation Comments Calcium Lvl (test code = Calcium Lvl) 8.2 8.5-10.5 L [facility] CenterWjrzsabRBNZEOQPH5637-03-03 09:59:00 Test Item Value Reference Range Interpretation Comments CO2 (test code = CO2) 25 24-32 N [facility] CenterAvqotnpBUYEXIPHG4391-85-39 09:59:00 Test Item Value Reference Range Interpretation Comments eGFR (test code = eGFR) 43 [facility] NortheastFzymofsSXDBFQLWDX1694-91-56 09:59:00 Test Item Value Reference Range Interpretation Comments INR (test code = INR) 2.04 0.85-1.17 H [facility] NortheastLhzhbvcBJJHVZWNJV0511-99-79 09:59:00 Test Item Value Reference Range Interpretation Comments PROTIME (test code = PROTIME) 22.7 s 12.0-14.7 H [facility] NortheastEiocnqjWEHXORMYSA3906-30-24 09:59:00 Test Item Value Reference Range Interpretation Comments Basophils # (test code 0.1 See_Comment N [Aut omated message] The = Basophils #) system which generated this result tra nsmitted reference range : <=0.2. The reference r andreia was not used to int erpret this result as normal/abnormal . [facility] NortheastWmksjmrRBRWFZDXMQ4752-51-65 09:59:00 Test Item Value Reference Range Interpretation Comments Eosinophils # (test code 0.4 See_Comment N [A utomated message] The = Eosinophils #) system whic h generated this result tra nsmitted reference range : <=0.5. The reference r andreia was not used to int erpret this result as normal/abnormal . [facility]FfjydgdAPMKXFRWHI4885-88-63 09:59:00 Test Item Value Reference Range Interpretation Comments Monocytes # (test code 0.7 See_Comment N [Aut omated message] The = Monocytes #) system which generated this result tra nsmitted reference range : <=0.8. The reference r andreia was not used to int erpret this result as normal/abnormal . [facility]HjvwmjnWHXMEOMIWU0283-12-40 09:59:00 Test Item Value Reference Range Interpretation Comments Lymphocytes # (test code = Lymphocytes 2.7 1.0-5.5 N #) [facility]TyytztaXHQKIYSHRZ5927-28-11 09:59:00 Test Item Value Reference Range Interpretation Comments Segs-Bands # (test code = Segs-Bands #) 4.7 1.5-8.1 N [facility] NortheastRyoluhgJLGYHZTVQM5134-13-80 09:59:00 Test Item Value Reference Range Interpretation Comments Basophils (test code = 0.8 See_Comment N [Aut omated message] The Basophils) system which ge nerated this result tra nsmitted reference range : <=1.0. The reference r andreia was not used to int erpret this result as normal/abnormal . [facility]MxxslhpFYDJRCFGLC8874-74-20 09:59:00 Test Item Value Reference Range Interpretation Comments Eosinophils (test code = 5.1 See_Comment H [A utomated message] The Eosinophils) system which ge nerated this result tra nsmitted reference range : <=4.0. The reference r andreia was not used to int erpret this result as normal/abnormal . [facility] NortheastUmnyvqzZOLZTDFMGT2389-67-91 09:59:00 Test Item Value Reference Range Interpretation Comments Lymphocytes (test code = Lymphocytes) 31.8 20.0-40.0 N [facility] NortheastWeetjxjWGGBKITPPB9741-23-80 09:59:00 Test Item Value Reference Range Interpretation Comments Segs (test code = Segs) 54.5 45.0-75.0 N [facility] NortheastEhtixftUPDURABHWU4591-92-11 09:59:00 Test Item Value Reference Range Interpretation Comments Monocytes (test code = Monocytes) 7.8 2.0-12.0 N [facility]NrdboplBYNOKDEEIR6052-25-50 09:59:00 Test Item Value Reference Range Interpretation Comments WBC X 10x3 (test code = WBC X 10x3) 8.7 3.7-10.4 N [facility] NortheastSdluibiGJHLCACVQQ1169-07-24 09:59:00 Test Item Value Reference Range Interpretation Comments MCHC (test code = MCHC) 33.1 32.0-36.0 N [facility]UkidaqwYRWMGEOLLB0870-09-83 09:59:00 Test Item Value Reference Range Interpretation Comments RBC X 10x6 (test code = RBC X 10x6) 2.83 4.20-5.40 L [facility] NortheastYctdczyQAMQSTTSXZ2944-01-05 09:59:00 Test Item Value Reference Range Interpretation Comments Platelet (test code = Platelet) 544 133-450 H [facility]KpsqtxvDRDKSMANQB7461-54-76 09:59:00 Test Item Value Reference Range Interpretation Comments MPV (test code = MPV) 6.7 7.4-10.4 L [facility] NortheastOfezbeiTICMWVXIST4188-13-09 09:59:00 Test Item Value Reference Range Interpretation Comments RDW (test code = RDW) 14.4 11.5-14.5 N [facility] NortheastPkocfxoMIOWAHLQFF2268-08-50 09:59:00 Test Item Value Reference Range Interpretation Comments Hgb (test code = Hgb) 8.5 12.0-16.0 L [facility]XnavfjwJDNUIHJKHS2865-16-91 09:59:00 Test Item Value Reference Range Interpretation Comments MCH (test code = MCH) 30.2 pg 27.0-31.0 N [facility] NortheastWkmlrhmOAJTFXYOQP8938-02-25 09:59:00 Test Item Value Reference Range Interpretation Comments Hct (test code = Hct) 25.8 36.0-48.0 L [facility] NortheastSkdoxfgHIFDCSYZGN8985-87-29 09:59:00 Test Item Value Reference Range Interpretation Comments MCV (test code = MCV) 91.2 81.0-99.0 N [facility]TomxisrNTNCRZCMO4373-01-57 09:59:00 Test Item Value Reference Range Interpretation Comments AGAP (test code = AGAP) 13.3 10.0-20.0 N [facility] CenterBembstcKFMYLBLGK8309-85-06 09:59:00 Test Item Value Reference Range Interpretation Comments Glucose Lvl (test code = Glucose Lvl) 119 70-99 H [facility] CenterZcdoizsMOVSAURFJ4464-53-68 09:59:00 Test Item Value Reference Range Interpretation Comments Chloride Lvl (test code = Chloride Lvl) 107 95-109 N [facility] CenterWgooxxrLMZDIUNSW9186-42-73 09:59:00 Test Item Value Reference Range Interpretation Comments Potassium Lvl (test code = Potassium 4.3 3.5-5.1 N Lvl) [facility] CenterVcqzlqhLUUKLENPI7278-32-87 09:59:00 Test Item Value Reference Range Interpretation Comments BUN (test code = BUN) 26 7-22 H [facility] CenterYoebegiTELJJWTKL4506-42-45 09:59:00 Test Item Value Reference Range Interpretation Comments Sodium Lvl (test code = Sodium Lvl) 141 135-145 N [facility] CenterCesfajvOLNFZXRXN0099-51-30 09:59:00 Test Item Value Reference Range Interpretation Comments Creatinine Lvl (test code = Creatinine 1.2 0.5-1.4 N Lvl) [facility] CenterJzijimcSYKOBJDZT5779-83-46 09:59:00 Test Item Value Reference Range Interpretation Comments Calcium Lvl (test code = Calcium Lvl) 8.2 8.5-10.5 L [facility] CenterIepgetwESLOMBFUL8031-59-58 09:59:00 Test Item Value Reference Range Interpretation Comments CO2 (test code = CO2) 25 24-32 N [facility] CenterIglwzfpITIOCXZLC8386-51-03 09:59:00 Test Item Value Reference Range Interpretation Comments eGFR (test code = eGFR) 43 [facility]DhalnyjZVAVZLZPMR3245-41-72 09:59:00 Test Item Value Reference Range Interpretation Comments INR (test code = INR) 2.04 0.85-1.17 H [facility]VvsjocaCFSKKOTSEX5201-42-63 09:59:00 Test Item Value Reference Range Interpretation Comments PROTIME (test code = PROTIME) 22.7 s 12.0-14.7 H [facility] NortheastDvelnvrSKLYIBACTX1582-62-18 09:59:00 Test Item Value Reference Range Interpretation Comments Basophils # (test code 0.1 See_Comment N [Aut omated message] The = Basophils #) system which generated this result tra nsmitted reference range : <=0.2. The reference r andreia was not used to int erpret this result as normal/abnormal . [facility] NortheastAgnkjujIYXTKJAGQO5262-27-11 09:59:00 Test Item Value Reference Range Interpretation Comments Eosinophils # (test code 0.4 See_Comment N [A utomated message] The = Eosinophils #) system whic h generated this result tra nsmitted reference range : <=0.5. The reference r andreia was not used to int erpret this result as normal/abnormal . [facility] NortheastTvtcgvpTOJHKTSFRU8974-60-62 09:59:00 Test Item Value Reference Range Interpretation Comments Monocytes # (test code 0.7 See_Comment N [Aut omated message] The = Monocytes #) system which generated this result tra nsmitted reference range : <=0.8. The reference r andreia was not used to int erpret this result as normal/abnormal . [facility] NortheastMqyjithIQKYJMTGYT4992-66-91 09:59:00 Test Item Value Reference Range Interpretation Comments Lymphocytes # (test code = Lymphocytes 2.7 1.0-5.5 N #) [facility] NortheastGlfecceYFYSOGOYGG2752-38-79 09:59:00 Test Item Value Reference Range Interpretation Comments Segs-Bands # (test code = Segs-Bands #) 4.7 1.5-8.1 N [facility] NortheastOhtffzjDJHQABTJFK8541-69-47 09:59:00 Test Item Value Reference Range Interpretation Comments Basophils (test code = 0.8 See_Comment N [Aut omated message] The Basophils) system which ge nerated this result tra nsmitted reference range : <=1.0. The reference r andreia was not used to int erpret this result as normal/abnormal . [facility] NortheastNghddlxOHWQRIDPLF0341-72-76 09:59:00 Test Item Value Reference Range Interpretation Comments Eosinophils (test code = 5.1 See_Comment H [A utomated message] The Eosinophils) system which ge nerated this result tra nsmitted reference range : <=4.0. The reference r andreia was not used to int erpret this result as normal/abnormal . [facility] NortheastYxlyyjiRVRLBBFHVO1380-26-22 09:59:00 Test Item Value Reference Range Interpretation Comments Lymphocytes (test code = Lymphocytes) 31.8 20.0-40.0 N [facility] NortheastCfswaakQONNCYLWJQ2124-50-68 09:59:00 Test Item Value Reference Range Interpretation Comments Segs (test code = Segs) 54.5 45.0-75.0 N [facility] NortheastAkmptibBJDWGNWWKE5961-50-05 09:59:00 Test Item Value Reference Range Interpretation Comments Monocytes (test code = Monocytes) 7.8 2.0-12.0 N [facility] NortheastEwsiprdFKACADQBGH4987-35-93 09:59:00 Test Item Value Reference Range Interpretation Comments WBC X 10x3 (test code = WBC X 10x3) 8.7 3.7-10.4 N [facility] NortheastIzugmviJPIHZAMZBC2917-48-47 09:59:00 Test Item Value Reference Range Interpretation Comments MCHC (test code = MCHC) 33.1 32.0-36.0 N [facility] NortheastZyisvvyTBFVFZGHZF5220-32-89 09:59:00 Test Item Value Reference Range Interpretation Comments RBC X 10x6 (test code = RBC X 10x6) 2.83 4.20-5.40 L [facility] NortheastOmflbkmHGHFCZMFJU9427-06-55 09:59:00 Test Item Value Reference Range Interpretation Comments Platelet (test code = Platelet) 544 133-450 H [facility] NortheastCwiahvjZCNCHEWXKH7800-12-53 09:59:00 Test Item Value Reference Range Interpretation Comments MPV (test code = MPV) 6.7 7.4-10.4 L [facility] NortheastGxsfytoETNSORDUVT8078-25-74 09:59:00 Test Item Value Reference Range Interpretation Comments RDW (test code = RDW) 14.4 11.5-14.5 N [facility] NortheastYlbgtknCIPVGVSPRY4089-42-66 09:59:00 Test Item Value Reference Range Interpretation Comments Hgb (test code = Hgb) 8.5 12.0-16.0 L [facility] NortheastAjqdwkhTFRYFZTPBD9684-86-83 09:59:00 Test Item Value Reference Range Interpretation Comments MCH (test code = MCH) 30.2 pg 27.0-31.0 N [facility] NortheastHoidaqvZYWRBJQBOP7630-28-36 09:59:00 Test Item Value Reference Range Interpretation Comments Hct (test code = Hct) 25.8 36.0-48.0 L [facility] NortheastCprphutFIKVAPXATR7262-49-41 09:59:00 Test Item Value Reference Range Interpretation Comments MCV (test code = MCV) 91.2 81.0-99.0 N [facility] CenterEevzeruUOSEJHWGO1560-69-54 09:59:00 Test Item Value Reference Range Interpretation Comments AGAP (test code = AGAP) 13.3 10.0-20.0 N [facility] CenterJrrycwaXEXZCKZOF2350-09-36 09:59:00 Test Item Value Reference Range Interpretation Comments Glucose Lvl (test code = Glucose Lvl) 119 70-99 H [facility] CenterUgpqeahHOUQOXSGC3405-46-28 09:59:00 Test Item Value Reference Range Interpretation Comments Chloride Lvl (test code = Chloride Lvl) 107 95-109 N [facility] CenterOmdhiqwICMPJWTZB1233-17-85 09:59:00 Test Item Value Reference Range Interpretation Comments Potassium Lvl (test code = Potassium 4.3 3.5-5.1 N Lvl) [facility] CenterBzokcvmTTTRAZMME1977-73-09 09:59:00 Test Item Value Reference Range Interpretation Comments BUN (test code = BUN) 26 7-22 H [facility] CenterYmjpusxMJIAQMVRH5418-08-61 09:59:00 Test Item Value Reference Range Interpretation Comments Sodium Lvl (test code = Sodium Lvl) 141 135-145 N [facility] CenterYbgdogpANTSMOVKK8351-74-35 09:59:00 Test Item Value Reference Range Interpretation Comments Creatinine Lvl (test code = Creatinine 1.2 0.5-1.4 N Lvl) [facility] CenterEdirpsrYZHHYUOSY8777-98-33 09:59:00 Test Item Value Reference Range Interpretation Comments Calcium Lvl (test code = Calcium Lvl) 8.2 8.5-10.5 L [facility] CenterQhkgmdlSBAUBGWKW8902-48-93 09:59:00 Test Item Value Reference Range Interpretation Comments CO2 (test code = CO2) 25 24-32 N [facility] CenterXomfevfDMYJIUUVB2431-85-53 09:59:00 Test Item Value Reference Range Interpretation Comments eGFR (test code = eGFR) 43 [facility]YnkipzmRWQGECHHUI1501-30-98 09:59:00 Test Item Value Reference Range Interpretation Comments INR (test code = INR) 2.04 0.85-1.17 H [facility] NortheastPuobxwqAQDUTHDYDS1007-13-83 09:59:00 Test Item Value Reference Range Interpretation Comments PROTIME (test code = PROTIME) 22.7 s 12.0-14.7 H [facility] NortheastSzjaufeEVVGDMNDMM8043-74-92 09:59:00 Test Item Value Reference Range Interpretation Comments Basophils # (test code 0.1 See_Comment N [Aut omated message] The = Basophils #) system which generated this result tra nsmitted reference range : <=0.2. The reference r andreia was not used to int erpret this result as normal/abnormal . [facility] NortheastMqyjjhdWXLQEYVUAG6617-27-05 09:59:00 Test Item Value Reference Range Interpretation Comments Eosinophils # (test code 0.4 See_Comment N [A utomated message] The = Eosinophils #) system whic h generated this result tra nsmitted reference range : <=0.5. The reference r andreia was not used to int erpret this result as normal/abnormal . [facility] NortheastChmuzljDFIDKPVRJJ3623-09-45 09:59:00 Test Item Value Reference Range Interpretation Comments Monocytes # (test code 0.7 See_Comment N [Aut omated message] The = Monocytes #) system which generated this result tra nsmitted reference range : <=0.8. The reference r andreia was not used to int erpret this result as normal/abnormal . [facility] NortheastEyechkhRHRVUFSSPR5416-67-07 09:59:00 Test Item Value Reference Range Interpretation Comments Lymphocytes # (test code = Lymphocytes 2.7 1.0-5.5 N #) [facility] NortheastDqjuknxHOLVKURGNZ5113-71-64 09:59:00 Test Item Value Reference Range Interpretation Comments Segs-Bands # (test code = Segs-Bands #) 4.7 1.5-8.1 N [facility] NortheastNbixugcMSIXOGGCYH7967-35-03 09:59:00 Test Item Value Reference Range Interpretation Comments Basophils (test code = 0.8 See_Comment N [Aut omated message] The Basophils) system which ge nerated this result tra nsmitted reference range : <=1.0. The reference r andreia was not used to int erpret this result as normal/abnormal . [facility] NortheastKsqxfjkOQWRGWBIER2646-26-38 09:59:00 Test Item Value Reference Range Interpretation Comments Eosinophils (test code = 5.1 See_Comment H [A utomated message] The Eosinophils) system which ge nerated this result tra nsmitted reference range : <=4.0. The reference r andreia was not used to int erpret this result as normal/abnormal . [facility] NortheastKndcbzfXVCOAOPYMH7635-59-75 09:59:00 Test Item Value Reference Range Interpretation Comments Lymphocytes (test code = Lymphocytes) 31.8 20.0-40.0 N [facility] NortheastAksywuoKAUZPIXIAD7201-41-51 09:59:00 Test Item Value Reference Range Interpretation Comments Segs (test code = Segs) 54.5 45.0-75.0 N [facility] NortheastZxaxxgkPFTEIFMRQO0798-13-39 09:59:00 Test Item Value Reference Range Interpretation Comments Monocytes (test code = Monocytes) 7.8 2.0-12.0 N [facility] NortheastYkacudrIIFFMPTIHD3248-26-03 09:59:00 Test Item Value Reference Range Interpretation Comments WBC X 10x3 (test code = WBC X 10x3) 8.7 3.7-10.4 N [facility] NortheastXofsdrkWRRZBSZIKT4947-31-07 09:59:00 Test Item Value Reference Range Interpretation Comments MCHC (test code = MCHC) 33.1 32.0-36.0 N [facility] NortheastNnrrmdrZLBGDDMRQR3936-83-87 09:59:00 Test Item Value Reference Range Interpretation Comments RBC X 10x6 (test code = RBC X 10x6) 2.83 4.20-5.40 L [facility] NortheastSgcrfyqTRKTFMMHFV9093-60-83 09:59:00 Test Item Value Reference Range Interpretation Comments Platelet (test code = Platelet) 544 133-450 H [facility] NortheastAunhutrKLYCIBNWMD6242-34-44 09:59:00 Test Item Value Reference Range Interpretation Comments MPV (test code = MPV) 6.7 7.4-10.4 L [facility] NortheastCjuuuhjCIKDPMNHFH2857-43-60 09:59:00 Test Item Value Reference Range Interpretation Comments RDW (test code = RDW) 14.4 11.5-14.5 N [facility] NortheastCbahqniOSUPLDYLAP5945-95-33 09:59:00 Test Item Value Reference Range Interpretation Comments Hgb (test code = Hgb) 8.5 12.0-16.0 L [facility] NortheastPjyhpgxQKFSRUCKST5776-91-48 09:59:00 Test Item Value Reference Range Interpretation Comments MCH (test code = MCH) 30.2 pg 27.0-31.0 N [facility] NortheastLrxnbguHHQNDIJKGM3315-61-04 09:59:00 Test Item Value Reference Range Interpretation Comments Hct (test code = Hct) 25.8 36.0-48.0 L [facility] NortheastRmdzhgaLEIYKOAJDW9722-62-32 09:59:00 Test Item Value Reference Range Interpretation Comments MCV (test code = MCV) 91.2 81.0-99.0 N [facility] CenterRqtwtpcHGGJVHVXY3167-18-63 09:59:00 Test Item Value Reference Range Interpretation Comments AGAP (test code = AGAP) 13.3 10.0-20.0 N [facility] CenterEhavslyTWLMFSDSD7215-91-01 09:59:00 Test Item Value Reference Range Interpretation Comments Glucose Lvl (test code = Glucose Lvl) 119 70-99 H [facility] CenterSmoclvbEIVJUVGAV4816-65-48 09:59:00 Test Item Value Reference Range Interpretation Comments Chloride Lvl (test code = Chloride Lvl) 107 95-109 N [facility] CenterSofoujrMXVWEQAPU2951-60-72 09:59:00 Test Item Value Reference Range Interpretation Comments Potassium Lvl (test code = Potassium 4.3 3.5-5.1 N Lvl) [facility] CenterGkljqaqUPYSKCZFV9323-24-64 09:59:00 Test Item Value Reference Range Interpretation Comments BUN (test code = BUN) 26 7-22 H [facility] CenterLxoreedXLIQVJKGA8817-26-59 09:59:00 Test Item Value Reference Range Interpretation Comments Sodium Lvl (test code = Sodium Lvl) 141 135-145 N [facility] CenterMjyzoafJOVRPBOLQ5555-51-06 09:59:00 Test Item Value Reference Range Interpretation Comments Creatinine Lvl (test code = Creatinine 1.2 0.5-1.4 N Lvl) [facility] CenterImrsxxgVNTRXYIHA4509-73-37 09:59:00 Test Item Value Reference Range Interpretation Comments Calcium Lvl (test code = Calcium Lvl) 8.2 8.5-10.5 L [facility] CenterHbqwzqwRRTQKGFGK4588-49-67 09:59:00 Test Item Value Reference Range Interpretation Comments CO2 (test code = CO2) 25 24-32 N [facility] CenterLaqjumlVHPAQJBAQ0549-90-61 09:59:00 Test Item Value Reference Range Interpretation Comments eGFR (test code = eGFR) 43 [facility] NortheastFjltrnyULSVZJJVVP5216-29-68 09:59:00 Test Item Value Reference Range Interpretation Comments INR (test code = INR) 2.04 0.85-1.17 H [facility]XjsgffrBXCPQJOOSE2897-12-98 09:59:00 Test Item Value Reference Range Interpretation Comments PROTIME (test code = PROTIME) 22.7 s 12.0-14.7 H [facility] NortheastQqhzewiRWKCSQOSHN5951-87-38 09:59:00 Test Item Value Reference Range Interpretation Comments Basophils # (test code 0.1 See_Comment N [Aut omated message] The = Basophils #) system which generated this result tra nsmitted reference range : <=0.2. The reference r andreia was not used to int erpret this result as normal/abnormal . [facility] NortheastYuqhgyeUXTTKRMHOY8350-04-83 09:59:00 Test Item Value Reference Range Interpretation Comments Eosinophils # (test code 0.4 See_Comment N [A utomated message] The = Eosinophils #) system whic h generated this result tra nsmitted reference range : <=0.5. The reference r andreia was not used to int erpret this result as normal/abnormal . [facility] NortheastFlyymueWIERBJDBYJ2500-77-22 09:59:00 Test Item Value Reference Range Interpretation Comments Monocytes # (test code 0.7 See_Comment N [Aut omated message] The = Monocytes #) system which generated this result tra nsmitted reference range : <=0.8. The reference r andreia was not used to int erpret this result as normal/abnormal . [facility] NortheastJphmjkbVNEEPFFHMV9475-92-09 09:59:00 Test Item Value Reference Range Interpretation Comments Lymphocytes # (test code = Lymphocytes 2.7 1.0-5.5 N #) [facility]XqxeopiCGTSSLFQLQ4852-02-80 09:59:00 Test Item Value Reference Range Interpretation Comments Segs-Bands # (test code = Segs-Bands #) 4.7 1.5-8.1 N [facility] NortheastCzazyurEVNEEFNYHI2120-61-37 09:59:00 Test Item Value Reference Range Interpretation Comments Basophils (test code = 0.8 See_Comment N [Aut omated message] The Basophils) system which ge nerated this result tra nsmitted reference range : <=1.0. The reference r andreia was not used to int erpret this result as normal/abnormal . [facility] NortheastGqocrqeKWKHADLQKI0022-05-29 09:59:00 Test Item Value Reference Range Interpretation Comments Eosinophils (test code = 5.1 See_Comment H [A utomated message] The Eosinophils) system which ge nerated this result tra nsmitted reference range : <=4.0. The reference r andreia was not used to int erpret this result as normal/abnormal . [facility] NortheastKkwjaomUYMBGTBWQR9034-47-55 09:59:00 Test Item Value Reference Range Interpretation Comments Lymphocytes (test code = Lymphocytes) 31.8 20.0-40.0 N [facility] NortheastPwrigcyPBZHVAZJDI6849-93-13 09:59:00 Test Item Value Reference Range Interpretation Comments Segs (test code = Segs) 54.5 45.0-75.0 N [facility] NortheastWsvruwoIDAWGMATZX1607-17-38 09:59:00 Test Item Value Reference Range Interpretation Comments Monocytes (test code = Monocytes) 7.8 2.0-12.0 N [facility] NortheastGamwcxeXCEPDPDXOK8556-31-61 09:59:00 Test Item Value Reference Range Interpretation Comments WBC X 10x3 (test code = WBC X 10x3) 8.7 3.7-10.4 N [facility] NortheastCdbpvimGRYOCZYKTI3540-21-05 09:59:00 Test Item Value Reference Range Interpretation Comments MCHC (test code = MCHC) 33.1 32.0-36.0 N [facility] NortheastXdvbzcdJUQYULWHQU1524-11-55 09:59:00 Test Item Value Reference Range Interpretation Comments RBC X 10x6 (test code = RBC X 10x6) 2.83 4.20-5.40 L [facility] NortheastJdhuxqeDXPKPBDGDI7645-46-08 09:59:00 Test Item Value Reference Range Interpretation Comments Platelet (test code = Platelet) 544 133-450 H [facility] NortheastEogxctgARALWTNGZG1967-29-17 09:59:00 Test Item Value Reference Range Interpretation Comments MPV (test code = MPV) 6.7 7.4-10.4 L [facility] NortheastYepjfyhCQIYYYVZUN1899-20-94 09:59:00 Test Item Value Reference Range Interpretation Comments RDW (test code = RDW) 14.4 11.5-14.5 N [facility] NortheastStfaqgqSUFGIARRVI1703-46-21 09:59:00 Test Item Value Reference Range Interpretation Comments Hgb (test code = Hgb) 8.5 12.0-16.0 L [facility] NortheastOifgujyDFDFRXTDIM2307-44-72 09:59:00 Test Item Value Reference Range Interpretation Comments MCH (test code = MCH) 30.2 pg 27.0-31.0 N [facility] NortheastWdmxjbtFNNMQMKPZZ9069-57-37 09:59:00 Test Item Value Reference Range Interpretation Comments Hct (test code = Hct) 25.8 36.0-48.0 L [facility] NortheastQihxfvoZBUBVIZAQJ1641-99-40 09:59:00 Test Item Value Reference Range Interpretation Comments MCV (test code = MCV) 91.2 81.0-99.0 N [facility] NortheastUsnagdlNJWUFDBMFN9262-80-40 09:07:45 Test Item Value Reference Range Interpretation Comments INR (test code = INR) 2.60 0.85-1.17 H [facility] NortheastIybypiaOFHEFVNJPT1965-82-75 09:07:45 Test Item Value Reference Range Interpretation Comments PROTIME (test code = PROTIME) 27.3 s 12.0-14.7 H [facility] NortheastLpsatqtWJFBEVSQEF4331-25-80 09:07:45 Test Item Value Reference Range Interpretation Comments INR (test code = INR) 2.60 0.85-1.17 H [facility] NortheastUsobnsnUIOYGUCFYO6773-65-41 09:07:45 Test Item Value Reference Range Interpretation Comments PROTIME (test code = PROTIME) 27.3 s 12.0-14.7 H [facility] NortheastWsnsvnkBOPTCJDYOD9263-24-30 09:07:45 Test Item Value Reference Range Interpretation Comments INR (test code = INR) 2.60 0.85-1.17 H [facility] NortheastJermdhbDYYVNWVBWQ7065-20-77 09:07:45 Test Item Value Reference Range Interpretation Comments PROTIME (test code = PROTIME) 27.3 s 12.0-14.7 H [facility] NortheastLdmamokWTRBRVRCOI7032-42-81 09:07:45 Test Item Value Reference Range Interpretation Comments INR (test code = INR) 2.60 0.85-1.17 H [facility] NortheastMcsocsxEHJNWARYDO1939-64-98 09:07:45 Test Item Value Reference Range Interpretation Comments PROTIME (test code = PROTIME) 27.3 s 12.0-14.7 H [facility] NortheastMdoxgpbSEVIFBYLUT2172-24-75 09:07:45 Test Item Value Reference Range Interpretation Comments INR (test code = INR) 2.60 0.85-1.17 H [facility] NortheastInqsnfsXKTYXHGEIE0593-77-88 09:07:45 Test Item Value Reference Range Interpretation Comments PROTIME (test code = PROTIME) 27.3 s 12.0-14.7 [facility]ImyczawQDFEKHXQLF5987-10-04 09:07:45 Test Item Value Reference Range Interpretation Comments INR (test code = INR) 2.60 0.85-1.17 [facility]EtfdbdrXZKQPUDJYX9887-86-27 09:07:45 Test Item Value Reference Range Interpretation Comments PROTIME (test code = PROTIME) 27.3 s 12.0-14.7 [facility] NortheastJfphxizJTRYVWBXXL3500-21-48 09:07:45 Test Item Value Reference Range Interpretation Comments INR (test code = INR) 2.60 0.85-1.17 [facility] NortheastHkurmzyYSXNUYBZML1448-66-23 09:07:45 Test Item Value Reference Range Interpretation Comments PROTIME (test code = PROTIME) 27.3 s 12.0-14.7 [facility] NortheastPtoeicfEGLEBKCGSG3781-07-36 09:07:45 Test Item Value Reference Range Interpretation Comments INR (test code = INR) 2.60 0.85-1.17 [facility] NortheastDszhlhoKJUKASMIOJ5967-10-46 09:07:45 Test Item Value Reference Range Interpretation Comments PROTIME (test code = PROTIME) 27.3 s 12.0-14.7 [facility] NortheastVcywjpwVUYYCRAFNI2031-89-19 09:07:45 Test Item Value Reference Range Interpretation Comments INR (test code = INR) 2.60 0.85-1.17 [facility]XjcetnrFNNZNZVONU3427-29-88 09:07:45 Test Item Value Reference Range Interpretation Comments PROTIME (test code = PROTIME) 27.3 s 12.0-14.7 [facility] NortheastDllumdvQWXYIFVTRS8139-50-04 09:07:45 Test Item Value Reference Range Interpretation Comments INR (test code = INR) 2.60 0.85-1.17 [facility]FszdnunERUTNWHGTI2780-49-23 09:07:45 Test Item Value Reference Range Interpretation Comments PROTIME (test code = PROTIME) 27.3 s 12.0-14.7 [facility]XhipxiwGUEKBLKKSE2534-73-46 09:07:45 Test Item Value Reference Range Interpretation Comments INR (test code = INR) 2.60 0.85-1.17 [facility]CuxxwkbEYZIRYZUQC3481-01-06 09:07:45 Test Item Value Reference Range Interpretation Comments PROTIME (test code = PROTIME) 27.3 s 12.0-14.7 [facility] NortheastKkrqfmrALWEWHITQR1117-01-55 09:07:45 Test Item Value Reference Range Interpretation Comments INR (test code = INR) 2.60 0.85-1.17 [facility] NortheastTebaudtOGFYCQYPXI2322-43-84 09:07:45 Test Item Value Reference Range Interpretation Comments PROTIME (test code = PROTIME) 27.3 s 12.0-14.7 [facility] NortheastFvwasuiFRWWGWDRYM9573-89-50 09:07:45 Test Item Value Reference Range Interpretation Comments INR (test code = INR) 2.60 0.85-1.17 [facility]WksczxmYCYYDAWOQG2673-45-40 09:07:45 Test Item Value Reference Range Interpretation Comments PROTIME (test code = PROTIME) 27.3 s 12.0-14.7 [facility]EpxbpyzUYLFPYSMLM5519-04-50 09:07:45 Test Item Value Reference Range Interpretation Comments INR (test code = INR) 2.60 0.85-1.17 [facility] NortheastJdqdvilTYENEJAUOR3901-61-41 09:07:45 Test Item Value Reference Range Interpretation Comments PROTIME (test code = PROTIME) 27.3 s 12.0-14.7 [facility]FfbwqjaBPYOGDAEPF7724-78-10 09:07:45 Test Item Value Reference Range Interpretation Comments INR (test code = INR) 2.60 0.85-1.17 [facility] NortheastTsiucowWTYCMTMHLK4210-91-68 09:07:45 Test Item Value Reference Range Interpretation Comments PROTIME (test code = PROTIME) 27.3 s 12.0-14.7 [facility]XlvlzbuMJLTRFCMAO1267-19-23 09:07:45 Test Item Value Reference Range Interpretation Comments INR (test code = INR) 2.60 0.85-1.17 [facility] NortheastKzsgivcFRVZRUESAT7827-62-04 09:07:45 Test Item Value Reference Range Interpretation Comments PROTIME (test code = PROTIME) 27.3 s 12.0-14.7 [facility] NortheastDgmksczJBIYCKMCWC3836-19-06 09:07:45 Test Item Value Reference Range Interpretation Comments INR (test code = INR) 2.60 0.85-1.17 [facility] NortheastUgnexduTNEGFXJBBH0548-57-86 09:07:45 Test Item Value Reference Range Interpretation Comments PROTIME (test code = PROTIME) 27.3 s 12.0-14.7 [facility]AsxjzflSKQWICUQDH1626-52-88 09:07:45 Test Item Value Reference Range Interpretation Comments INR (test code = INR) 2.60 0.85-1.17 [facility]LjfxrysVJBSVDFQHQ8292-59-76 09:07:45 Test Item Value Reference Range Interpretation Comments PROTIME (test code = PROTIME) 27.3 s 12.0-14.7 [facility] NortheastUsxzjecFQLIHSVNBI0363-85-78 09:07:45 Test Item Value Reference Range Interpretation Comments INR (test code = INR) 2.60 0.85-1.17 [facility] NortheastThlzzseUWBDSUPKXD1443-42-35 09:07:45 Test Item Value Reference Range Interpretation Comments PROTIME (test code = PROTIME) 27.3 s 12.0-14.7 [facility] NortheastIuawwdyENOYRAZXWJ8128-94-27 09:07:45 Test Item Value Reference Range Interpretation Comments INR (test code = INR) 2.60 0.85-1.17 [facility] NortheastToubkgbFPYBNUIPBH8884-38-60 09:07:45 Test Item Value Reference Range Interpretation Comments PROTIME (test code = PROTIME) 27.3 s 12.0-14.7 [facility] NortheastVkjftykYNVAFFQOZP4686-08-27 09:07:45 Test Item Value Reference Range Interpretation Comments INR (test code = INR) 2.60 0.85-1.17 [facility]PzcystaPJYHIQHHAZ2749-24-70 09:07:45 Test Item Value Reference Range Interpretation Comments PROTIME (test code = PROTIME) 27.3 s 12.0-14.7 [facility] NortheastXiwedtzUMYIEVBNXY7120-23-24 09:07:45 Test Item Value Reference Range Interpretation Comments INR (test code = INR) 2.60 0.85-1.17 [facility] NortheastCoxqnkqSEAKBICKLT8791-43-22 09:07:45 Test Item Value Reference Range Interpretation Comments PROTIME (test code = PROTIME) 27.3 s 12.0-14.7 [facility] NortheastNulpnrkWUUYJAWUBG1841-15-54 09:07:45 Test Item Value Reference Range Interpretation Comments INR (test code = INR) 2.60 0.85-1.17 [facility]XqfudgdDKCYFQCHAK6371-69-55 09:07:45 Test Item Value Reference Range Interpretation Comments PROTIME (test code = PROTIME) 27.3 s 12.0-14.7 [facility] NortheastJichznuKOWNIKRMZL5625-93-21 09:07:45 Test Item Value Reference Range Interpretation Comments INR (test code = INR) 2.60 0.85-1.17 [facility] NortheastNdmxitmQFJRVHAGOB3289-43-60 09:07:45 Test Item Value Reference Range Interpretation Comments PROTIME (test code = PROTIME) 27.3 s 12.0-14.7 [facility] NortheastHpuxkkrAKAQADXDCA0447-24-54 09:07:45 Test Item Value Reference Range Interpretation Comments INR (test code = INR) 2.60 0.85-1.17 [facility] NortheastUhgzfimRYUTQRTEOY1584-10-56 09:07:45 Test Item Value Reference Range Interpretation Comments PROTIME (test code = PROTIME) 27.3 s 12.0-14.7 [facility] NortheastWkqmpfkGCPEPUTAGH2834-29-94 09:07:45 Test Item Value Reference Range Interpretation Comments INR (test code = INR) 2.60 0.85-1.17 [facility] NortheastCibuzhkNXURUCFYFG5295-55-04 09:07:45 Test Item Value Reference Range Interpretation Comments PROTIME (test code = PROTIME) 27.3 s 12.0-14.7 [facility] NortheastQvwkkzvKTQBNAUOLH1028-14-87 09:07:45 Test Item Value Reference Range Interpretation Comments INR (test code = INR) 2.60 0.85-1.17 [facility] NortheastAangfuzRFAPNHSWXX3912-28-18 09:07:45 Test Item Value Reference Range Interpretation Comments PROTIME (test code = PROTIME) 27.3 s 12.0-14.7 [facility]LfvguluQLGHYHOTT7033-09-99 10:57:00 Test Item Value Reference Range Interpretation Comments AGAP (test code = AGAP) 12.6 10.0-20.0 [facility] CenterHbkyahbZUXFRIHNM1299-94-37 10:57:00 Test Item Value Reference Range Interpretation Comments eGFR (test code = eGFR) 61 [facility] CenterOliryepORAWSCWDX5335-55-35 10:57:00 Test Item Value Reference Range Interpretation Comments Calcium Lvl (test code = Calcium Lvl) 8.5 8.5-10.5 [facility] CenterUummtxgLROOAJWTI9524-29-64 10:57:00 Test Item Value Reference Range Interpretation Comments CO2 (test code = CO2) 28 24-32 N [facility] CenterFsdeskfSQVXWIKOV0243-60-75 10:57:00 Test Item Value Reference Range Interpretation Comments Chloride Lvl (test code = Chloride Lvl) 102 95-109 N [facility] CenterEdsvvjyOUGDJUQLG6238-76-99 10:57:00 Test Item Value Reference Range Interpretation Comments Potassium Lvl (test code = Potassium 3.6 3.5-5.1 N Lvl) [facility] CenterCctskcoDSTDFMBTH2057-58-68 10:57:00 Test Item Value Reference Range Interpretation Comments BUN (test code = BUN) 19 7-22 N [facility] CenterShpzrltNPIFFCSIH3390-87-54 10:57:00 Test Item Value Reference Range Interpretation Comments Glucose Lvl (test code = Glucose Lvl) 114 70-99 [facility] CenterSoogoxtRGSQTQDXG7612-52-37 10:57:00 Test Item Value Reference Range Interpretation Comments Sodium Lvl (test code = Sodium Lvl) 139 135-145 N [facility] CenterYmrviqgMTHARAWRH5587-67-60 10:57:00 Test Item Value Reference Range Interpretation Comments Creatinine Lvl (test code = Creatinine 0.9 0.5-1.4 N Lvl) [facility]KajuwacUFRQBJVGUM9870-98-16 10:57:00 Test Item Value Reference Range Interpretation Comments Hct (test code = Hct) 26.1 36.0-48.0 [facility]XzatkayDGGPFZTSAY0836-04-29 10:57:00 Test Item Value Reference Range Interpretation Comments WBC X 10x3 (test code = WBC X 10x3) 8.8 3.7-10.4 [facility] NortheastDwhydekQAJNIPZWMD1903-40-21 10:57:00 Test Item Value Reference Range Interpretation Comments MCHC (test code = MCHC) 32.6 32.0-36.0 N [facility] NortheastDcpzphzJMWUTXVZFQ5769-42-23 10:57:00 Test Item Value Reference Range Interpretation Comments RDW (test code = RDW) 14.5 11.5-14.5 [facility] NortheastIdmvabsXDFANHEUXH5369-28-23 10:57:00 Test Item Value Reference Range Interpretation Comments MCH (test code = MCH) 29.8 pg 27.0-31.0 N [facility]CxjyshrDPTUOEILUT5817-61-60 10:57:00 Test Item Value Reference Range Interpretation Comments MCV (test code = MCV) 91.6 81.0-99.0 [facility] NortheastKqsutdiWNTCXICFDX3689-61-45 10:57:00 Test Item Value Reference Range Interpretation Comments Hgb (test code = Hgb) 8.5 12.0-16.0 [facility]IjgxfpsPOBCGBYFHT9270-40-55 10:57:00 Test Item Value Reference Range Interpretation Comments RBC X 10x6 (test code = RBC X 10x6) 2.85 4.20-5.40 [facility] NortheastRfbumppDIUKFIBQNN1056-69-74 10:57:00 Test Item Value Reference Range Interpretation Comments Platelet (test code = Platelet) 423 133-450 [facility] NortheastPotlmhdRFJNSYQPJW5829-37-71 10:57:00 Test Item Value Reference Range Interpretation Comments MPV (test code = MPV) 7.3 7.4-10.4 [facility] NortheastOyjmdrzZFEVOIKWMA4560-84-63 10:57:00 Test Item Value Reference Range Interpretation Comments Monocytes (test code = Monocytes) 8.5 2.0-12.0 [facility] NortheastEqmfqdcSRURPPNGQX4626-62-46 10:57:00 Test Item Value Reference Range Interpretation Comments Eosinophils (test code = Eosinophils) 4.9 <=4.0 [facility] NortheastWblxhrmJXAFZLMRCS8278-76-81 10:57:00 Test Item Value Reference Range Interpretation Comments Lymphocytes (test code = Lymphocytes) 29.9 20.0-40.0 [facility] NortheastAafgvegFJQIWTGBOZ4376-95-37 10:57:00 Test Item Value Reference Range Interpretation Comments Eosinophils # (test code = Eosinophils 0.4 <=0.5 N #) [facility]AsxfgtcQIVGIBYCJH6567-65-96 10:57:00 Test Item Value Reference Range Interpretation Comments Basophils # (test code = Basophils #) 0.1 <=0.2 N [facility] NortheastQxxkklyEFCSLWLHQM5780-58-94 10:57:00 Test Item Value Reference Range Interpretation Comments Basophils (test code = Basophils) 1.1 <=1.0 [facility]XjbdcfdATWRLOHDCQ9198-93-14 10:57:00 Test Item Value Reference Range Interpretation Comments Segs-Bands # (test code = Segs-Bands #) 4.9 1.5-8.1 [facility] NortheastTaegxksHCONIMIKGT8977-07-24 10:57:00 Test Item Value Reference Range Interpretation Comments Segs (test code = Segs) 55.6 45.0-75.0 [facility] NortheastLxipoewMTDMJAPDER5183-72-09 10:57:00 Test Item Value Reference Range Interpretation Comments Monocytes # (test code = Monocytes #) 0.7 <=0.8 [facility]WbfxzvlFOUWVIQGUE8737-87-34 10:57:00 Test Item Value Reference Range Interpretation Comments Lymphocytes # (test code = Lymphocytes 2.6 1.0-5.5 N #) [facility] CenterUzeikumOIHJLVCOM3396-29-14 10:57:00 Test Item Value Reference Range Interpretation Comments AGAP (test code = AGAP) 12.6 10.0-20.0 N [facility] CenterZqtqbokMIYMYUOWB6017-58-41 10:57:00 Test Item Value Reference Range Interpretation Comments eGFR (test code = eGFR) 61 [facility] CenterFtocwfzXWIRZHEGY2992-71-28 10:57:00 Test Item Value Reference Range Interpretation Comments Calcium Lvl (test code = Calcium Lvl) 8.5 8.5-10.5 N [facility] CenterNvnevndNXQHBAWZT2149-69-37 10:57:00 Test Item Value Reference Range Interpretation Comments CO2 (test code = CO2) 28 24-32 N [facility] CenterPtlejkoOHNPILXSB4220-86-31 10:57:00 Test Item Value Reference Range Interpretation Comments Chloride Lvl (test code = Chloride Lvl) 102 95-109 N [facility] CenterImgtufrXOKETPQLZ1472-60-35 10:57:00 Test Item Value Reference Range Interpretation Comments Potassium Lvl (test code = Potassium 3.6 3.5-5.1 N Lvl) [facility] CenterVpmgdkvJLZJPGCGH1002-16-47 10:57:00 Test Item Value Reference Range Interpretation Comments BUN (test code = BUN) 19 7-22 N [facility] CenterLasmifcUCYZIDRDM3087-22-39 10:57:00 Test Item Value Reference Range Interpretation Comments Glucose Lvl (test code = Glucose Lvl) 114 70-99 H [facility] CenterPhvwxddRCMOIPLME4882-88-03 10:57:00 Test Item Value Reference Range Interpretation Comments Sodium Lvl (test code = Sodium Lvl) 139 135-145 N [facility] CenterUvpjbptYAUESRNMC3609-10-23 10:57:00 Test Item Value Reference Range Interpretation Comments Creatinine Lvl (test code = Creatinine 0.9 0.5-1.4 N Lvl) [facility]SjzmyblUMZBJLOCCL3555-27-11 10:57:00 Test Item Value Reference Range Interpretation Comments Hct (test code = Hct) 26.1 36.0-48.0 L [facility] NortheastEetcivuRZQQFQTOCY0970-24-46 10:57:00 Test Item Value Reference Range Interpretation Comments WBC X 10x3 (test code = WBC X 10x3) 8.8 3.7-10.4 N [facility] NortheastJmdcksmNQQSXWYGMA7291-36-23 10:57:00 Test Item Value Reference Range Interpretation Comments MCHC (test code = MCHC) 32.6 32.0-36.0 N [facility] NortheastJutaymxPEVKDPMFWY8921-06-88 10:57:00 Test Item Value Reference Range Interpretation Comments RDW (test code = RDW) 14.5 11.5-14.5 N [facility] NortheastBugaesaVMOACVSXCI1177-13-84 10:57:00 Test Item Value Reference Range Interpretation Comments MCH (test code = MCH) 29.8 pg 27.0-31.0 N [facility] NortheastWdktgiaTLAVVWSBLA6822-02-53 10:57:00 Test Item Value Reference Range Interpretation Comments MCV (test code = MCV) 91.6 81.0-99.0 N [facility] NortheastVgavvbqOPINXUOOIY5051-70-31 10:57:00 Test Item Value Reference Range Interpretation Comments Hgb (test code = Hgb) 8.5 12.0-16.0 L [facility] NortheastWybspmlYDIKUGARIE7028-26-27 10:57:00 Test Item Value Reference Range Interpretation Comments RBC X 10x6 (test code = RBC X 10x6) 2.85 4.20-5.40 [facility] NortheastLudincyWVOQQWPDDY9501-49-20 10:57:00 Test Item Value Reference Range Interpretation Comments Platelet (test code = Platelet) 423 133-450 N [facility] NortheastLggqfpuOCRAGPEJAK2793-58-25 10:57:00 Test Item Value Reference Range Interpretation Comments MPV (test code = MPV) 7.3 7.4-10.4 [facility] NortheastRrawiswZKXAILJJUN6216-79-39 10:57:00 Test Item Value Reference Range Interpretation Comments Monocytes (test code = Monocytes) 8.5 2.0-12.0 [facility] NortheastVeqytsnDFITHQGASP9262-61-04 10:57:00 Test Item Value Reference Range Interpretation Comments Eosinophils (test code = 4.9 See_Comment H [A utomated message] The Eosinophils) system which ge nerated this result tra nsmitted reference range : <=4.0. The reference r andreia was not used to int erpret this result as normal/abnormal . [facility] NortheastZainthdFTWBHFGRFS3808-11-52 10:57:00 Test Item Value Reference Range Interpretation Comments Lymphocytes (test code = Lymphocytes) 29.9 20.0-40.0 [facility] NortheastIgnykqpLIZUOSLOST2919-29-40 10:57:00 Test Item Value Reference Range Interpretation Comments Eosinophils # (test code 0.4 See_Comment N [A utomated message] The = Eosinophils #) system whic h generated this result tra nsmitted reference range : <=0.5. The reference r andreia was not used to int erpret this result as normal/abnormal . [facility] NortheastLjijzjoUNMMIWNRDX1721-66-47 10:57:00 Test Item Value Reference Range Interpretation Comments Basophils # (test code 0.1 See_Comment N [Aut omated message] The = Basophils #) system which generated this result tra nsmitted reference range : <=0.2. The reference r andreia was not used to int erpret this result as normal/abnormal . [facility] NortheastPgikdcyILWVIIVNOS8483-15-45 10:57:00 Test Item Value Reference Range Interpretation Comments Basophils (test code = 1.1 See_Comment H [Aut omated message] The Basophils) system which ge nerated this result tra nsmitted reference range : <=1.0. The reference r andreia was not used to int erpret this result as normal/abnormal . [facility] NortheastEmubpbsUDZJBYNBKB1801-60-45 10:57:00 Test Item Value Reference Range Interpretation Comments Segs-Bands # (test code = Segs-Bands #) 4.9 1.5-8.1 N [facility] NortheastVfwqbhoBPWUWDLHVM4562-66-22 10:57:00 Test Item Value Reference Range Interpretation Comments Segs (test code = Segs) 55.6 45.0-75.0 N [facility] NortheastGdsqjpcGQOTUDAUVC5493-14-77 10:57:00 Test Item Value Reference Range Interpretation Comments Monocytes # (test code 0.7 See_Comment N [Aut omated message] The = Monocytes #) system which generated this result tra nsmitted reference range : <=0.8. The reference r andreia was not used to int erpret this result as normal/abnormal . [facility] NortheastCefbnkwRJJFBZCYRQ4693-41-41 10:57:00 Test Item Value Reference Range Interpretation Comments Lymphocytes # (test code = Lymphocytes 2.6 1.0-5.5 N #) [facility] CenterSkigfndFFIPHGDTS8977-02-37 10:57:00 Test Item Value Reference Range Interpretation Comments AGAP (test code = AGAP) 12.6 10.0-20.0 N [facility] CenterPtabtvuZXXYYYSCU3384-73-34 10:57:00 Test Item Value Reference Range Interpretation Comments eGFR (test code = eGFR) 61 [facility] CenterUrwuimbIXXDLLVLE0340-74-14 10:57:00 Test Item Value Reference Range Interpretation Comments Calcium Lvl (test code = Calcium Lvl) 8.5 8.5-10.5 N [facility] CenterSrimymrBFOZEWBTF6428-36-22 10:57:00 Test Item Value Reference Range Interpretation Comments CO2 (test code = CO2) 28 24-32 N [facility] CenterNfmbvjpWUAVODEMT9161-03-16 10:57:00 Test Item Value Reference Range Interpretation Comments Chloride Lvl (test code = Chloride Lvl) 102 95-109 N [facility] CenterVnnhhimNRRXQSZCO1495-23-77 10:57:00 Test Item Value Reference Range Interpretation Comments Potassium Lvl (test code = Potassium 3.6 3.5-5.1 N Lvl) [facility] CenterHqzkadzENNREVHII1375-15-77 10:57:00 Test Item Value Reference Range Interpretation Comments BUN (test code = BUN) 19 7-22 N [facility] CenterUrvicehZUHCANHFN8166-80-17 10:57:00 Test Item Value Reference Range Interpretation Comments Glucose Lvl (test code = Glucose Lvl) 114 70-99 H [facility] CenterMoqthlvANFAKJDCM4745-75-40 10:57:00 Test Item Value Reference Range Interpretation Comments Sodium Lvl (test code = Sodium Lvl) 139 135-145 N [facility] CenterIftzztlFAIREKQHD5413-62-28 10:57:00 Test Item Value Reference Range Interpretation Comments Creatinine Lvl (test code = Creatinine 0.9 0.5-1.4 N Lvl) [facility]VyytcggSIMKOUXCVW5335-43-80 10:57:00 Test Item Value Reference Range Interpretation Comments Hct (test code = Hct) 26.1 36.0-48.0 L [facility] NortheastQjlqzksGCFYRDOPFM2096-38-80 10:57:00 Test Item Value Reference Range Interpretation Comments WBC X 10x3 (test code = WBC X 10x3) 8.8 3.7-10.4 N [facility] NortheastWgwboraDWDEORHXRT4630-99-83 10:57:00 Test Item Value Reference Range Interpretation Comments MCHC (test code = MCHC) 32.6 32.0-36.0 N [facility] NortheastIykqagoBXVPULRVHM4282-03-42 10:57:00 Test Item Value Reference Range Interpretation Comments RDW (test code = RDW) 14.5 11.5-14.5 N [facility] NortheastSnzyipyEMQUWCYTCX2227-32-61 10:57:00 Test Item Value Reference Range Interpretation Comments MCH (test code = MCH) 29.8 pg 27.0-31.0 N [facility] NortheastTodblxsFFEWENDPNU5034-51-19 10:57:00 Test Item Value Reference Range Interpretation Comments MCV (test code = MCV) 91.6 81.0-99.0 N [facility] NortheastUodoriiYVKYTHSCLR5110-42-69 10:57:00 Test Item Value Reference Range Interpretation Comments Hgb (test code = Hgb) 8.5 12.0-16.0 L [facility] NortheastGpncudjVVXQHGSYRL9462-73-85 10:57:00 Test Item Value Reference Range Interpretation Comments RBC X 10x6 (test code = RBC X 10x6) 2.85 4.20-5.40 L [facility] NortheastOspjbqyVWEFOLDMPW5760-56-82 10:57:00 Test Item Value Reference Range Interpretation Comments Platelet (test code = Platelet) 423 133-450 N [facility] NortheastSsnhcazQILGEJJCXC4766-92-34 10:57:00 Test Item Value Reference Range Interpretation Comments MPV (test code = MPV) 7.3 7.4-10.4 L [facility] NortheastGhadyomFPZFSNRRUV5405-82-23 10:57:00 Test Item Value Reference Range Interpretation Comments Monocytes (test code = Monocytes) 8.5 2.0-12.0 N [facility] NortheastTbswzfxAITPLICMAO2913-06-88 10:57:00 Test Item Value Reference Range Interpretation Comments Eosinophils (test code = 4.9 See_Comment H [A utomated message] The Eosinophils) system which ge nerated this result tra nsmitted reference range : <=4.0. The reference r andreia was not used to int erpret this result as normal/abnormal . [facility] NortheastDgolbwrIMFJLBJYXV6852-79-76 10:57:00 Test Item Value Reference Range Interpretation Comments Lymphocytes (test code = Lymphocytes) 29.9 20.0-40.0 N [facility] NortheastPzgnyyrLVDBSYPSIR2455-87-54 10:57:00 Test Item Value Reference Range Interpretation Comments Eosinophils # (test code 0.4 See_Comment N [A utomated message] The = Eosinophils #) system whic h generated this result tra nsmitted reference range : <=0.5. The reference r andreia was not used to int erpret this result as normal/abnormal . [facility] NortheastMtdxtodUUKDMXYSJB3714-26-60 10:57:00 Test Item Value Reference Range Interpretation Comments Basophils # (test code 0.1 See_Comment N [Aut omated message] The = Basophils #) system which generated this result tra nsmitted reference range : <=0.2. The reference r andreia was not used to int erpret this result as normal/abnormal . [facility] NortheastApexskaZHYEKQHKPC3188-26-12 10:57:00 Test Item Value Reference Range Interpretation Comments Basophils (test code = 1.1 See_Comment H [Aut omated message] The Basophils) system which ge nerated this result tra nsmitted reference range : <=1.0. The reference r andreia was not used to int erpret this result as normal/abnormal . [facility] NortheastVkrqxnbFYUJTOTIOU0843-38-65 10:57:00 Test Item Value Reference Range Interpretation Comments Segs-Bands # (test code = Segs-Bands #) 4.9 1.5-8.1 N [facility] NortheastJayqmitBKXLZRTVBD8235-00-03 10:57:00 Test Item Value Reference Range Interpretation Comments Segs (test code = Segs) 55.6 45.0-75.0 N [facility] NortheastGbrlhgjUGLIGODVYF0474-07-89 10:57:00 Test Item Value Reference Range Interpretation Comments Monocytes # (test code 0.7 See_Comment N [Aut omated message] The = Monocytes #) system which generated this result tra nsmitted reference range : <=0.8. The reference r andreia was not used to int erpret this result as normal/abnormal . [facility] NortheastAydsmoeWQNOYYTPSK9063-90-64 10:57:00 Test Item Value Reference Range Interpretation Comments Lymphocytes # (test code = Lymphocytes 2.6 1.0-5.5 N #) [facility]CavitdzABEJXGFYK2006-46-28 10:57:00 Test Item Value Reference Range Interpretation Comments AGAP (test code = AGAP) 12.6 10.0-20.0 N [facility] CenterZgcpijvWVQXJJRMJ1238-97-06 10:57:00 Test Item Value Reference Range Interpretation Comments eGFR (test code = eGFR) 61 [facility] CenterErvzhbhGGNNEUEHK3309-35-54 10:57:00 Test Item Value Reference Range Interpretation Comments Calcium Lvl (test code = Calcium Lvl) 8.5 8.5-10.5 N [facility] CenterVkwqzzqWEQDRMOFZ8805-42-75 10:57:00 Test Item Value Reference Range Interpretation Comments CO2 (test code = CO2) 28 24-32 N [facility] CenterKxxfthxRNDJHXZRR5347-66-33 10:57:00 Test Item Value Reference Range Interpretation Comments Chloride Lvl (test code = Chloride Lvl) 102 95-109 N [facility] CenterBaiphxhMZWBJEWHC3930-43-75 10:57:00 Test Item Value Reference Range Interpretation Comments Potassium Lvl (test code = Potassium 3.6 3.5-5.1 N Lvl) [facility] CenterDreplwxIEZGEKURO0692-52-26 10:57:00 Test Item Value Reference Range Interpretation Comments BUN (test code = BUN) 19 7-22 N [facility] CenterRtjbdoyCEFLJRGNR7798-77-86 10:57:00 Test Item Value Reference Range Interpretation Comments Glucose Lvl (test code = Glucose Lvl) 114 70-99 H [facility] CenterIbsksgcMDZGTLJSR0832-48-84 10:57:00 Test Item Value Reference Range Interpretation Comments Sodium Lvl (test code = Sodium Lvl) 139 135-145 N [facility] CenterXgipsgkVRYIRPBME6557-11-69 10:57:00 Test Item Value Reference Range Interpretation Comments Creatinine Lvl (test code = Creatinine 0.9 0.5-1.4 N Lvl) [facility]PlegkqzGBZSWYXZFG4952-44-67 10:57:00 Test Item Value Reference Range Interpretation Comments Hct (test code = Hct) 26.1 36.0-48.0 L [facility] NortheastPujzchsAGYXVVRHQJ4620-38-96 10:57:00 Test Item Value Reference Range Interpretation Comments WBC X 10x3 (test code = WBC X 10x3) 8.8 3.7-10.4 N [facility] NortheastSyesipsOTEBLBPSNO1341-23-17 10:57:00 Test Item Value Reference Range Interpretation Comments MCHC (test code = MCHC) 32.6 32.0-36.0 N [facility] NortheastGgdtjzrMMLHMJLDLN3936-83-84 10:57:00 Test Item Value Reference Range Interpretation Comments RDW (test code = RDW) 14.5 11.5-14.5 N [facility] NortheastEphghshKPLWIYFNIF9096-28-15 10:57:00 Test Item Value Reference Range Interpretation Comments MCH (test code = MCH) 29.8 pg 27.0-31.0 N [facility] NortheastQpungixOTANEBFFAG0577-57-42 10:57:00 Test Item Value Reference Range Interpretation Comments MCV (test code = MCV) 91.6 81.0-99.0 N [facility] NortheastNdwohxbDALGIMZXVO5574-15-06 10:57:00 Test Item Value Reference Range Interpretation Comments Hgb (test code = Hgb) 8.5 12.0-16.0 L [facility] NortheastNeqfwdgDREGUTOUVL0967-07-01 10:57:00 Test Item Value Reference Range Interpretation Comments RBC X 10x6 (test code = RBC X 10x6) 2.85 4.20-5.40 L [facility] NortheastEubemluJLEPRPVRVA3669-76-31 10:57:00 Test Item Value Reference Range Interpretation Comments Platelet (test code = Platelet) 423 133-450 N [facility] NortheastMyfqxsaGWJKIYACTQ9308-31-21 10:57:00 Test Item Value Reference Range Interpretation Comments MPV (test code = MPV) 7.3 7.4-10.4 L [facility] NortheastMzzlrtvVDLVNJAKJQ5016-78-14 10:57:00 Test Item Value Reference Range Interpretation Comments Monocytes (test code = Monocytes) 8.5 2.0-12.0 N [facility] NortheastUmhnfodCKPXOVWFBS6592-01-07 10:57:00 Test Item Value Reference Range Interpretation Comments Eosinophils (test code = 4.9 See_Comment H [A utomated message] The Eosinophils) system which ge nerated this result tra nsmitted reference range : <=4.0. The reference r andreia was not used to int erpret this result as normal/abnormal . [facility] NortheastSbhyhpeWQSKAINLUM4909-27-30 10:57:00 Test Item Value Reference Range Interpretation Comments Lymphocytes (test code = Lymphocytes) 29.9 20.0-40.0 N [facility] NortheastBqiahiiPJYYUWRPFO7460-66-64 10:57:00 Test Item Value Reference Range Interpretation Comments Eosinophils # (test code 0.4 See_Comment N [A utomated message] The = Eosinophils #) system [facility] h generated this result tra nsmitted reference range : <=0.5. The reference r andreia was not used to int erpret this result as normal/abnormal . [facility] NortheastJycqwsdTAMTZQHAMZ7804-16-45 10:57:00 Test Item Value Reference Range Interpretation Comments Basophils # (test code 0.1 See_Comment N [Aut omated message] The = Basophils #) system which generated this result tra nsmitted reference range : <=0.2. The reference r andreia was not used to int erpret this result as normal/abnormal . [facility] NortheastMckxilbUHZWFXINBR9259-44-82 10:57:00 Test Item Value Reference Range Interpretation Comments Basophils (test code = 1.1 See_Comment H [Aut omated message] The Basophils) system which ge nerated this result tra nsmitted reference range : <=1.0. The reference r andreia was not used to int erpret this result as normal/abnormal . [facility] NortheastHzpecmiTLSJDKMWFD2650-15-61 10:57:00 Test Item Value Reference Range Interpretation Comments Segs-Bands # (test code = Segs-Bands #) 4.9 1.5-8.1 N [facility] NortheastUjnbudeDTNEFYLWIQ6797-60-52 10:57:00 Test Item Value Reference Range Interpretation Comments Segs (test code = Segs) 55.6 45.0-75.0 N [facility] NortheastSfsxwgwWVXORBKUZC6826-78-32 10:57:00 Test Item Value Reference Range Interpretation Comments Monocytes # (test code 0.7 See_Comment N [Aut omated message] The = Monocytes #) system which generated this result tra nsmitted reference range : <=0.8. The reference r andreia was not used to int erpret this result as normal/abnormal . [facility] NortheastIeiqgdeAJGMIBCJHP0913-20-86 10:57:00 Test Item Value Reference Range Interpretation Comments Lymphocytes # (test code = Lymphocytes 2.6 1.0-5.5 N #) [facility] CenterPxmbnqgSOYNRKMMS0252-29-10 10:57:00 Test Item Value Reference Range Interpretation Comments AGAP (test code = AGAP) 12.6 10.0-20.0 N [facility] CenterJwqxenvYOPIXZQJQ1628-54-55 10:57:00 Test Item Value Reference Range Interpretation Comments eGFR (test code = eGFR) 61 [facility] CenterScipbstLIXUWBMMB1214-20-78 10:57:00 Test Item Value Reference Range Interpretation Comments Calcium Lvl (test code = Calcium Lvl) 8.5 8.5-10.5 N [facility] CenterJyamshhQDLTVFMIU2450-83-11 10:57:00 Test Item Value Reference Range Interpretation Comments CO2 (test code = CO2) 28 24-32 N [facility] CenterFgzzypjBITPFFBUE0304-58-79 10:57:00 Test Item Value Reference Range Interpretation Comments Chloride Lvl (test code = Chloride Lvl) 102 95-109 N [facility] CenterStnsibvTVDCYIMVO6631-18-61 10:57:00 Test Item Value Reference Range Interpretation Comments Potassium Lvl (test code = Potassium 3.6 3.5-5.1 N Lvl) [facility] CenterIiojuklIFLJRTKQV3830-55-48 10:57:00 Test Item Value Reference Range Interpretation Comments BUN (test code = BUN) 19 7-22 N [facility] CenterSdnvngvCMKOWHLHW8382-35-45 10:57:00 Test Item Value Reference Range Interpretation Comments Glucose Lvl (test code = Glucose Lvl) 114 70-99 H [facility] CenterHkejgtsOSVLKFXRX7231-35-43 10:57:00 Test Item Value Reference Range Interpretation Comments Sodium Lvl (test code = Sodium Lvl) 139 135-145 N [facility] CenterJqwekdmLKYUXLHMR4431-97-21 10:57:00 Test Item Value Reference Range Interpretation Comments Creatinine Lvl (test code = Creatinine 0.9 0.5-1.4 N Lvl) [facility] NortheastOvtzdjgETGWLZGTVW0094-14-46 10:57:00 Test Item Value Reference Range Interpretation Comments Hct (test code = Hct) 26.1 36.0-48.0 L [facility] NortheastTsbykssMVMQZWXZYN3176-29-93 10:57:00 Test Item Value Reference Range Interpretation Comments WBC X 10x3 (test code = WBC X 10x3) 8.8 3.7-10.4 N [facility] NortheastGdrkiyuEQKIOHCSMH8118-78-88 10:57:00 Test Item Value Reference Range Interpretation Comments MCHC (test code = MCHC) 32.6 32.0-36.0 N [facility] NortheastIhyhqzpGXHAGTLMIW6377-40-20 10:57:00 Test Item Value Reference Range Interpretation Comments RDW (test code = RDW) 14.5 11.5-14.5 N [facility] NortheastTrlylacJRZITRPLBF5041-89-29 10:57:00 Test Item Value Reference Range Interpretation Comments MCH (test code = MCH) 29.8 pg 27.0-31.0 N [facility] NortheastSywxyxaNMMSQLLPGE0573-35-98 10:57:00 Test Item Value Reference Range Interpretation Comments MCV (test code = MCV) 91.6 81.0-99.0 N [facility] NortheastCncmqjnHYPNGRXUWO4211-17-03 10:57:00 Test Item Value Reference Range Interpretation Comments Hgb (test code = Hgb) 8.5 12.0-16.0 L [facility] NortheastEyrjkwnOYVLVYWTZX0033-81-66 10:57:00 Test Item Value Reference Range Interpretation Comments RBC X 10x6 (test code = RBC X 10x6) 2.85 4.20-5.40 L [facility] NortheastArazoyxDOCAAVLLLV1025-69-62 10:57:00 Test Item Value Reference Range Interpretation Comments Platelet (test code = Platelet) 423 133-450 N [facility] NortheastZbburdoVMOFBFQCVC9719-02-33 10:57:00 Test Item Value Reference Range Interpretation Comments MPV (test code = MPV) 7.3 7.4-10.4 L [facility] NortheastHntluxkPJRQUVYWCB5876-34-34 10:57:00 Test Item Value Reference Range Interpretation Comments Monocytes (test code = Monocytes) 8.5 2.0-12.0 N [facility] NortheastZjiimtvYFEREVQZNW5212-10-23 10:57:00 Test Item Value Reference Range Interpretation Comments Eosinophils (test code = 4.9 See_Comment H [A utomated message] The Eosinophils) system which ge nerated this result tra nsmitted reference range : <=4.0. The reference r andreia was not used to int erpret this result as normal/abnormal . [facility] NortheastNbfalicMPCICNQXTA5486-28-01 10:57:00 Test Item Value Reference Range Interpretation Comments Lymphocytes (test code = Lymphocytes) 29.9 20.0-40.0 N [facility] NortheastBdrlxfaNKNNAFACYK8190-50-66 10:57:00 Test Item Value Reference Range Interpretation Comments Eosinophils # (test code 0.4 See_Comment N [A utomated message] The = Eosinophils #) system [facility] h generated this result tra nsmitted reference range : <=0.5. The reference r andreia was not used to int erpret this result as normal/abnormal . [facility] NortheastHiutirmUTOGTVTBXZ9659-75-02 10:57:00 Test Item Value Reference Range Interpretation Comments Basophils # (test code 0.1 See_Comment N [Aut omated message] The = Basophils #) system which generated this result tra nsmitted reference range : <=0.2. The reference r andreia was not used to int erpret this result as normal/abnormal . [facility] NortheastCjqoosiOBEEQPTESC7117-33-73 10:57:00 Test Item Value Reference Range Interpretation Comments Basophils (test code = 1.1 See_Comment H [Aut omated message] The Basophils) system which ge nerated this result tra nsmitted reference range : <=1.0. The reference r andreia was not used to int erpret this result as normal/abnormal . [facility] NortheastNqwoktlVFDJBUGMYX7165-14-99 10:57:00 Test Item Value Reference Range Interpretation Comments Segs-Bands # (test code = Segs-Bands #) 4.9 1.5-8.1 N [facility] NortheastWirphjwHOQWZHVKBD5215-60-77 10:57:00 Test Item Value Reference Range Interpretation Comments Segs (test code = Segs) 55.6 45.0-75.0 N [facility] NortheastZshydqbTYDABHVDIR3511-74-05 10:57:00 Test Item Value Reference Range Interpretation Comments Monocytes # (test code 0.7 See_Comment N [Aut omated message] The = Monocytes #) system which generated this result tra nsmitted reference range : <=0.8. The reference r andreia was not used to int erpret this result as normal/abnormal . [facility] NortheastGzxfktsSMANEWPZHC9129-65-55 10:57:00 Test Item Value Reference Range Interpretation Comments Lymphocytes # (test code = Lymphocytes 2.6 1.0-5.5 N #) [facility] CenterFltldtdVHBTYSNRR6794-55-55 10:57:00 Test Item Value Reference Range Interpretation Comments AGAP (test code = AGAP) 12.6 10.0-20.0 N [facility] CenterRnfqwavPVCXWCAAI3358-11-68 10:57:00 Test Item Value Reference Range Interpretation Comments eGFR (test code = eGFR) 61 [facility] CenterSmqoxswOLLFOCTZB0550-30-15 10:57:00 Test Item Value Reference Range Interpretation Comments Calcium Lvl (test code = Calcium Lvl) 8.5 8.5-10.5 N [facility] CenterMrqjuydISFEZFFXW7245-55-33 10:57:00 Test Item Value Reference Range Interpretation Comments CO2 (test code = CO2) 28 24-32 N [facility] CenterPbrhsxnWNYTQFTFB7678-29-78 10:57:00 Test Item Value Reference Range Interpretation Comments Chloride Lvl (test code = Chloride Lvl) 102 95-109 N [facility] CenterMsnxriaAAJRRCXRX2938-31-78 10:57:00 Test Item Value Reference Range Interpretation Comments Potassium Lvl (test code = Potassium 3.6 3.5-5.1 N Lvl) [facility] CenterDsmqffxBADWHVXKH9194-87-65 10:57:00 Test Item Value Reference Range Interpretation Comments BUN (test code = BUN) 19 7-22 N [facility] CenterJgjkhqoVTAVYBILS0849-90-48 10:57:00 Test Item Value Reference Range Interpretation Comments Glucose Lvl (test code = Glucose Lvl) 114 70-99 H [facility] CenterVnwhddcEQQBXCHVL2260-03-66 10:57:00 Test Item Value Reference Range Interpretation Comments Sodium Lvl (test code = Sodium Lvl) 139 135-145 N [facility] CenterFnegilqJOWMWKDFY1253-76-48 10:57:00 Test Item Value Reference Range Interpretation Comments Creatinine Lvl (test code = Creatinine 0.9 0.5-1.4 N Lvl) [facility] NortheastRafjcwpRPVBRKLFBC8312-82-23 10:57:00 Test Item Value Reference Range Interpretation Comments Hct (test code = Hct) 26.1 36.0-48.0 L [facility] NortheastJecdduxVKLDJOJTFC8587-83-17 10:57:00 Test Item Value Reference Range Interpretation Comments WBC X 10x3 (test code = WBC X 10x3) 8.8 3.7-10.4 N [facility] NortheastIuemfgrPLYOLTRKNZ6245-34-05 10:57:00 Test Item Value Reference Range Interpretation Comments MCHC (test code = MCHC) 32.6 32.0-36.0 N [facility] NortheastXdohafmQOOQJAQDJQ1118-79-82 10:57:00 Test Item Value Reference Range Interpretation Comments RDW (test code = RDW) 14.5 11.5-14.5 N [facility] NortheastPkgiorbLXZNNMPBDR8145-65-31 10:57:00 Test Item Value Reference Range Interpretation Comments MCH (test code = MCH) 29.8 pg 27.0-31.0 N [facility] NortheastIqfjmndUMAQPFRCDB0714-96-79 10:57:00 Test Item Value Reference Range Interpretation Comments MCV (test code = MCV) 91.6 81.0-99.0 N [facility] NortheastXfmpvnoAUCCDRRHKH2875-07-14 10:57:00 Test Item Value Reference Range Interpretation Comments Hgb (test code = Hgb) 8.5 12.0-16.0 L [facility] NortheastSonpcouHJIOIRXINQ7463-12-73 10:57:00 Test Item Value Reference Range Interpretation Comments RBC X 10x6 (test code = RBC X 10x6) 2.85 4.20-5.40 L [facility] NortheastYpouhtcIWKVZDHYBO8102-37-28 10:57:00 Test Item Value Reference Range Interpretation Comments Platelet (test code = Platelet) 423 133-450 N [facility] NortheastAfgxvpzRLOQFMAKYN6860-81-54 10:57:00 Test Item Value Reference Range Interpretation Comments MPV (test code = MPV) 7.3 7.4-10.4 L [facility] NortheastYuucsqgERBLBSPDXO6892-61-71 10:57:00 Test Item Value Reference Range Interpretation Comments Monocytes (test code = Monocytes) 8.5 2.0-12.0 N [facility] NortheastArsqebkYMZUXZGLHV9636-54-59 10:57:00 Test Item Value Reference Range Interpretation Comments Eosinophils (test code = 4.9 See_Comment H [A utomated message] The Eosinophils) system which ge nerated this result tra nsmitted reference range : <=4.0. The reference r andreia was not used to int erpret this result as normal/abnormal . [facility] NortheastVdnjlbtIBULFZVFLD5680-82-26 10:57:00 Test Item Value Reference Range Interpretation Comments Lymphocytes (test code = Lymphocytes) 29.9 20.0-40.0 N [facility] NortheastFgeiwuaXPKYFXHKUI6598-42-06 10:57:00 Test Item Value Reference Range Interpretation Comments Eosinophils # (test code 0.4 See_Comment N [A utomated message] The = Eosinophils #) system [facility] h generated this result tra nsmitted reference range : <=0.5. The reference r andreia was not used to int erpret this result as normal/abnormal . [facility] NortheastTxiwzziYIAPFUBHSA4501-85-67 10:57:00 Test Item Value Reference Range Interpretation Comments Basophils # (test code 0.1 See_Comment N [Aut omated message] The = Basophils #) system which generated this result tra nsmitted reference range : <=0.2. The reference r andreia was not used to int erpret this result as normal/abnormal . [facility] NortheastCiiyiooPQTKCMNWOC7601-33-56 10:57:00 Test Item Value Reference Range Interpretation Comments Basophils (test code = 1.1 See_Comment H [Aut omated message] The Basophils) system which ge nerated this result tra nsmitted reference range : <=1.0. The reference r andreia was not used to int erpret this result as normal/abnormal . [facility] NortheastGnawrcaPFYNHAIQPU3626-45-31 10:57:00 Test Item Value Reference Range Interpretation Comments Segs-Bands # (test code = Segs-Bands #) 4.9 1.5-8.1 N [facility] NortheastBbedagfLQGKYSEFDE6731-91-22 10:57:00 Test Item Value Reference Range Interpretation Comments Segs (test code = Segs) 55.6 45.0-75.0 N [facility] NortheastZhliilyMEOZVQHVPZ9545-63-43 10:57:00 Test Item Value Reference Range Interpretation Comments Monocytes # (test code 0.7 See_Comment N [Aut omated message] The = Monocytes #) system which generated this result tra nsmitted reference range : <=0.8. The reference r andreia was not used to int erpret this result as normal/abnormal . [facility] NortheastDhvujtaIJWFALGLYA3849-62-87 10:57:00 Test Item Value Reference Range Interpretation Comments Lymphocytes # (test code = Lymphocytes 2.6 1.0-5.5 N #) [facility] CenterTmelgxcHECMPABAI3497-92-54 10:57:00 Test Item Value Reference Range Interpretation Comments AGAP (test code = AGAP) 12.6 10.0-20.0 N [facility] CenterJtdfxfaLDPPPKIWL2150-41-02 10:57:00 Test Item Value Reference Range Interpretation Comments eGFR (test code = eGFR) 61 [facility] CenterNqdvwzeUAERCBIJD4399-20-94 10:57:00 Test Item Value Reference Range Interpretation Comments Calcium Lvl (test code = Calcium Lvl) 8.5 8.5-10.5 N [facility] CenterSmrxvnhMLQLTFNPN2792-67-21 10:57:00 Test Item Value Reference Range Interpretation Comments CO2 (test code = CO2) 28 24-32 N [facility] CenterKusttjdBLCLGOBAY0855-48-63 10:57:00 Test Item Value Reference Range Interpretation Comments Chloride Lvl (test code = Chloride Lvl) 102 95-109 N [facility] CenterSaptzooBNOEGXXMP0532-68-75 10:57:00 Test Item Value Reference Range Interpretation Comments Potassium Lvl (test code = Potassium 3.6 3.5-5.1 N Lvl) [facility] CenterSrtsoscVSZYQSYVN6883-03-38 10:57:00 Test Item Value Reference Range Interpretation Comments BUN (test code = BUN) 19 7-22 N [facility] CenterTshxuocXMRUQXHPV9182-35-80 10:57:00 Test Item Value Reference Range Interpretation Comments Glucose Lvl (test code = Glucose Lvl) 114 70-99 H [facility] CenterSwpmtzzFMCGBGNGG4684-42-36 10:57:00 Test Item Value Reference Range Interpretation Comments Sodium Lvl (test code = Sodium Lvl) 139 135-145 N [facility] CenterIjuzmzmUMHKFQZSV3416-33-47 10:57:00 Test Item Value Reference Range Interpretation Comments Creatinine Lvl (test code = Creatinine 0.9 0.5-1.4 N Lvl) [facility] NortheastUkvbzsmOFDPAALUQV1790-18-45 10:57:00 Test Item Value Reference Range Interpretation Comments Hct (test code = Hct) 26.1 36.0-48.0 L [facility] NortheastCcegrhdNTPWFJBENJ4504-64-06 10:57:00 Test Item Value Reference Range Interpretation Comments WBC X 10x3 (test code = WBC X 10x3) 8.8 3.7-10.4 N [facility] NortheastJghwmuvCEERRBQKHF5296-53-72 10:57:00 Test Item Value Reference Range Interpretation Comments MCHC (test code = MCHC) 32.6 32.0-36.0 N [facility] NortheastLfwcfkyKHTODMYRRE4454-06-70 10:57:00 Test Item Value Reference Range Interpretation Comments RDW (test code = RDW) 14.5 11.5-14.5 N [facility] NortheastOhgrbpeXLJMYGSPJN8319-93-41 10:57:00 Test Item Value Reference Range Interpretation Comments MCH (test code = MCH) 29.8 pg 27.0-31.0 N [facility] NortheastRhjztelRMRDGOVPOL2197-33-19 10:57:00 Test Item Value Reference Range Interpretation Comments MCV (test code = MCV) 91.6 81.0-99.0 N [facility] NortheastIrktkisGZRXDYWZMS9646-64-39 10:57:00 Test Item Value Reference Range Interpretation Comments Hgb (test code = Hgb) 8.5 12.0-16.0 L [facility] NortheastPvrswpgNYTLYZFIGE7247-24-93 10:57:00 Test Item Value Reference Range Interpretation Comments RBC X 10x6 (test code = RBC X 10x6) 2.85 4.20-5.40 L [facility] NortheastFtfdmwdFQEJCDELPH6180-04-97 10:57:00 Test Item Value Reference Range Interpretation Comments Platelet (test code = Platelet) 423 133-450 N [facility] NortheastFfdstldMPLNSXLHAR5950-71-69 10:57:00 Test Item Value Reference Range Interpretation Comments MPV (test code = MPV) 7.3 7.4-10.4 L [facility] NortheastWdjvoujZYUKHYOJXU7060-61-34 10:57:00 Test Item Value Reference Range Interpretation Comments Monocytes (test code = Monocytes) 8.5 2.0-12.0 N [facility] NortheastUdgxjmlPKNCUXYUFL6562-08-84 10:57:00 Test Item Value Reference Range Interpretation Comments Eosinophils (test code = 4.9 See_Comment H [A utomated message] The Eosinophils) system which ge nerated this result tra nsmitted reference range : <=4.0. The reference r andreia was not used to int erpret this result as normal/abnormal . [facility] NortheastGjqvppaVBLEHSYPFG7814-74-96 10:57:00 Test Item Value Reference Range Interpretation Comments Lymphocytes (test code = Lymphocytes) 29.9 20.0-40.0 N [facility] NortheastNoicvmrTWMDOHCSQR9580-02-46 10:57:00 Test Item Value Reference Range Interpretation Comments Eosinophils # (test code 0.4 See_Comment N [A utomated message] The = Eosinophils #) system [facility] generated this result tra nsmitted reference range : <=0.5. The reference r andreia was not used to int erpret this result as normal/abnormal . [facility] NortheastDtvrqufHXFMPXXOXJ3671-54-63 10:57:00 Test Item Value Reference Range Interpretation Comments Basophils # (test code 0.1 See_Comment N [Aut omated message] The = Basophils #) system which generated this result tra nsmitted reference range : <=0.2. The reference r andreia was not used to int erpret this result as normal/abnormal . [facility] NortheastFyofvooESBMATWYQE6164-05-65 10:57:00 Test Item Value Reference Range Interpretation Comments Basophils (test code = 1.1 See_Comment H [Aut omated message] The Basophils) system which ge nerated this result tra nsmitted reference range : <=1.0. The reference r andreia was not used to int erpret this result as normal/abnormal . [facility] NortheastCgkrfouPDMTUHDVYY3674-77-38 10:57:00 Test Item Value Reference Range Interpretation Comments Segs-Bands # (test code = Segs-Bands #) 4.9 1.5-8.1 N [facility] NortheastIupojhaZDVLBGWSAC0495-73-14 10:57:00 Test Item Value Reference Range Interpretation Comments Segs (test code = Segs) 55.6 45.0-75.0 N [facility] NortheastHiojcerZCYUNDLURQ9416-66-76 10:57:00 Test Item Value Reference Range Interpretation Comments Monocytes # (test code 0.7 See_Comment N [Aut omated message] The = Monocytes #) system which generated this result tra nsmitted reference range : <=0.8. The reference r andreia was not used to int erpret this result as normal/abnormal . [facility] NortheastNdddbeeFCKVCWVADL8777-81-21 10:57:00 Test Item Value Reference Range Interpretation Comments Lymphocytes # (test code = Lymphocytes 2.6 1.0-5.5 N #) [facility] CenterZdqczsbKMCAZKGIB3148-39-03 10:57:00 Test Item Value Reference Range Interpretation Comments AGAP (test code = AGAP) 12.6 10.0-20.0 N [facility] CenterMrlpaywFQSZNBNWK9484-83-52 10:57:00 Test Item Value Reference Range Interpretation Comments eGFR (test code = eGFR) 61 [facility]AndtzmxRBILEVTYI6535-97-76 10:57:00 Test Item Value Reference Range Interpretation Comments Calcium Lvl (test code = Calcium Lvl) 8.5 8.5-10.5 N [facility] CenterJtajdlvBOGDZLDDT4113-84-27 10:57:00 Test Item Value Reference Range Interpretation Comments CO2 (test code = CO2) 28 24-32 N [facility] CenterFosjnmgLCLIDFTKQ8241-33-31 10:57:00 Test Item Value Reference Range Interpretation Comments Chloride Lvl (test code = Chloride Lvl) 102 95-109 N [facility] CenterYrzfchkBKGFXUSLY4121-54-36 10:57:00 Test Item Value Reference Range Interpretation Comments Potassium Lvl (test code = Potassium 3.6 3.5-5.1 N Lvl) [facility] CenterTcpqvkxJYIRNXHUZ7752-30-40 10:57:00 Test Item Value Reference Range Interpretation Comments BUN (test code = BUN) 19 7-22 N [facility] CenterMasvxryUBJFUYWYB4386-91-69 10:57:00 Test Item Value Reference Range Interpretation Comments Glucose Lvl (test code = Glucose Lvl) 114 70-99 H [facility] CenterCzarlbwLWHERORVV2594-67-34 10:57:00 Test Item Value Reference Range Interpretation Comments Sodium Lvl (test code = Sodium Lvl) 139 135-145 N [facility] CenterOwhbbspDHEUJAVNP0987-66-57 10:57:00 Test Item Value Reference Range Interpretation Comments Creatinine Lvl (test code = Creatinine 0.9 0.5-1.4 N Lvl) [facility]KfjlqxyIQBAOBDEEZ1826-37-76 10:57:00 Test Item Value Reference Range Interpretation Comments Hct (test code = Hct) 26.1 36.0-48.0 L [facility] NortheastWxsnzbxQRPOZFIROQ5050-70-86 10:57:00 Test Item Value Reference Range Interpretation Comments WBC X 10x3 (test code = WBC X 10x3) 8.8 3.7-10.4 N [facility] NortheastKqgbqjtSYDSOQCRLL6356-08-70 10:57:00 Test Item Value Reference Range Interpretation Comments MCHC (test code = MCHC) 32.6 32.0-36.0 N [facility] NortheastKnwapshVVCOKMVBTL3188-43-84 10:57:00 Test Item Value Reference Range Interpretation Comments RDW (test code = RDW) 14.5 11.5-14.5 N [facility] NortheastVudrfdkIJTLMUCVAP5290-24-66 10:57:00 Test Item Value Reference Range Interpretation Comments MCH (test code = MCH) 29.8 pg 27.0-31.0 N [facility] NortheastZzvmgfcGHYRFQXUAF3973-44-77 10:57:00 Test Item Value Reference Range Interpretation Comments MCV (test code = MCV) 91.6 81.0-99.0 N [facility] NortheastFntjvpeDPRRYIJNLH2538-01-67 10:57:00 Test Item Value Reference Range Interpretation Comments Hgb (test code = Hgb) 8.5 12.0-16.0 L [facility] NortheastWiyjjpyJLYTWWFNON5689-87-39 10:57:00 Test Item Value Reference Range Interpretation Comments RBC X 10x6 (test code = RBC X 10x6) 2.85 4.20-5.40 L [facility] NortheastUbubyxpDJFPCJNKJU7195-96-85 10:57:00 Test Item Value Reference Range Interpretation Comments Platelet (test code = Platelet) 423 133-450 N [facility] NortheastMhcwjxlTVWDUGREUC1360-27-72 10:57:00 Test Item Value Reference Range Interpretation Comments MPV (test code = MPV) 7.3 7.4-10.4 L [facility] NortheastKzvlctwFNSHVQDLIV8560-95-96 10:57:00 Test Item Value Reference Range Interpretation Comments Monocytes (test code = Monocytes) 8.5 2.0-12.0 N [facility] NortheastEkflktsVKOBENEDQL6280-27-09 10:57:00 Test Item Value Reference Range Interpretation Comments Eosinophils (test code = 4.9 See_Comment H [A utomated message] The Eosinophils) system which ge nerated this result tra nsmitted reference range : <=4.0. The reference r andreia was not used to int erpret this result as normal/abnormal . [facility] NortheastKwbxjfjVQOAZOEMFM5885-74-60 10:57:00 Test Item Value Reference Range Interpretation Comments Lymphocytes (test code = Lymphocytes) 29.9 20.0-40.0 N [facility] NortheastOdbprjvXJDBOIKQQE4358-64-79 10:57:00 Test Item Value Reference Range Interpretation Comments Eosinophils # (test code 0.4 See_Comment N [A utomated message] The = Eosinophils #) system [facility] h generated this result tra nsmitted reference range : <=0.5. The reference r andreia was not used to int erpret this result as normal/abnormal . [facility] NortheastZqfaleoTZOVZJFJGP8727-90-85 10:57:00 Test Item Value Reference Range Interpretation Comments Basophils # (test code 0.1 See_Comment N [Aut omated message] The = Basophils #) system which generated this result tra nsmitted reference range : <=0.2. The reference r andreia was not used to int erpret this result as normal/abnormal . [facility] NortheastXzfbvjcULFWNQFHKP9545-90-79 10:57:00 Test Item Value Reference Range Interpretation Comments Basophils (test code = 1.1 See_Comment H [Aut omated message] The Basophils) system which ge nerated this result tra nsmitted reference range : <=1.0. The reference r andreia was not used to int erpret this result as normal/abnormal . [facility] NortheastQsudjcvYWNPLMFUZY6999-08-40 10:57:00 Test Item Value Reference Range Interpretation Comments Segs-Bands # (test code = Segs-Bands #) 4.9 1.5-8.1 N [facility] NortheastCnmjyvwPAVTLRBXMS8025-52-25 10:57:00 Test Item Value Reference Range Interpretation Comments Segs (test code = Segs) 55.6 45.0-75.0 N [facility] NortheastNeomkuqDUZMVMQQUE4036-96-75 10:57:00 Test Item Value Reference Range Interpretation Comments Monocytes # (test code 0.7 See_Comment N [Aut omated message] The = Monocytes #) system which generated this result tra nsmitted reference range : <=0.8. The reference r andreia was not used to int erpret this result as normal/abnormal . [facility] NortheastFwapeazYNDJKWTMHI3014-71-55 10:57:00 Test Item Value Reference Range Interpretation Comments Lymphocytes # (test code = Lymphocytes 2.6 1.0-5.5 N #) [facility] CenterNhoxlpsXRIKLJPKC1303-07-35 10:57:00 Test Item Value Reference Range Interpretation Comments AGAP (test code = AGAP) 12.6 10.0-20.0 N [facility] CenterUwabumvSOYZKSFVZ8718-50-27 10:57:00 Test Item Value Reference Range Interpretation Comments eGFR (test code = eGFR) 61 [facility] CenterOnuqsruUXPDRMJDW8023-56-24 10:57:00 Test Item Value Reference Range Interpretation Comments Calcium Lvl (test code = Calcium Lvl) 8.5 8.5-10.5 N [facility] CenterJgvrjikVIPKCHHNH8347-96-79 10:57:00 Test Item Value Reference Range Interpretation Comments CO2 (test code = CO2) 28 24-32 N [facility] CenterDzqfzarOSKFUXBIP5092-36-55 10:57:00 Test Item Value Reference Range Interpretation Comments Chloride Lvl (test code = Chloride Lvl) 102 95-109 N [facility] CenterIujibzrMMZDXZEBV6662-95-95 10:57:00 Test Item Value Reference Range Interpretation Comments Potassium Lvl (test code = Potassium 3.6 3.5-5.1 N Lvl) [facility] CenterCdgzsqiCXJOGBJTQ1888-81-73 10:57:00 Test Item Value Reference Range Interpretation Comments BUN (test code = BUN) 19 7-22 N [facility] CenterJzgkkxbLOJAUGLPL1480-32-75 10:57:00 Test Item Value Reference Range Interpretation Comments Glucose Lvl (test code = Glucose Lvl) 114 70-99 H [facility] CenterZggtcfcXUGCKISXM8874-76-37 10:57:00 Test Item Value Reference Range Interpretation Comments Sodium Lvl (test code = Sodium Lvl) 139 135-145 N [facility] CenterTbztlyzPWPSPOFTY5651-28-26 10:57:00 Test Item Value Reference Range Interpretation Comments Creatinine Lvl (test code = Creatinine 0.9 0.5-1.4 N Lvl) [facility]SkxvpjlTSVVQTRCQP2799-77-70 10:57:00 Test Item Value Reference Range Interpretation Comments Hct (test code = Hct) 26.1 36.0-48.0 L [facility] NortheastNkkdplqYHKDNYDBYG2484-01-19 10:57:00 Test Item Value Reference Range Interpretation Comments WBC X 10x3 (test code = WBC X 10x3) 8.8 3.7-10.4 N [facility] NortheastZrwdghaTKHIOFASTH8894-10-01 10:57:00 Test Item Value Reference Range Interpretation Comments MCHC (test code = MCHC) 32.6 32.0-36.0 N [facility] NortheastVunqrcyPZGINLYKIJ8646-35-78 10:57:00 Test Item Value Reference Range Interpretation Comments RDW (test code = RDW) 14.5 11.5-14.5 N [facility] NortheastUszmnhsTGLDSVQVES7695-25-40 10:57:00 Test Item Value Reference Range Interpretation Comments MCH (test code = MCH) 29.8 pg 27.0-31.0 N [facility] NortheastJtefarkZAZFIAHPHV0034-55-10 10:57:00 Test Item Value Reference Range Interpretation Comments MCV (test code = MCV) 91.6 81.0-99.0 N [facility] NortheastKutznmfOOSQPRWTYF1313-90-21 10:57:00 Test Item Value Reference Range Interpretation Comments Hgb (test code = Hgb) 8.5 12.0-16.0 L [facility] NortheastPvdvlqnLYTDWHIZSY8397-80-51 10:57:00 Test Item Value Reference Range Interpretation Comments RBC X 10x6 (test code = RBC X 10x6) 2.85 4.20-5.40 L [facility] NortheastGoiyhlvWBLPECQKHO1043-65-31 10:57:00 Test Item Value Reference Range Interpretation Comments Platelet (test code = Platelet) 423 133-450 N [facility] NortheastVvdmsifSCGIPPQOSD7654-03-31 10:57:00 Test Item Value Reference Range Interpretation Comments MPV (test code = MPV) 7.3 7.4-10.4 L [facility] NortheastUocmqgxVIXDVLXRHB6738-36-92 10:57:00 Test Item Value Reference Range Interpretation Comments Monocytes (test code = Monocytes) 8.5 2.0-12.0 N [facility] NortheastWjjqpoyYYYEOULHSH5806-74-52 10:57:00 Test Item Value Reference Range Interpretation Comments Eosinophils (test code = 4.9 See_Comment H [A utomated message] The Eosinophils) system which ge nerated this result tra nsmitted reference range : <=4.0. The reference r andreia was not used to int erpret this result as normal/abnormal . [facility] NortheastCxlbldcRQLOGEUHLZ9029-67-13 10:57:00 Test Item Value Reference Range Interpretation Comments Lymphocytes (test code = Lymphocytes) 29.9 20.0-40.0 N [facility] NortheastTqppxrzINYPSUDEKG6237-11-38 10:57:00 Test Item Value Reference Range Interpretation Comments Eosinophils # (test code 0.4 See_Comment N [A utomated message] The = Eosinophils #) system whic h generated this result tra nsmitted reference range : <=0.5. The reference r andreia was not used to int erpret this result as normal/abnormal . [facility] NortheastExqzljcXWIHLWNXIS3140-21-46 10:57:00 Test Item Value Reference Range Interpretation Comments Basophils # (test code 0.1 See_Comment N [Aut omated message] The = Basophils #) system which generated this result tra nsmitted reference range : <=0.2. The reference r andreai was not used to int erpret this result as normal/abnormal . [facility] NortheastZbuiehyNASKDOZZUB5715-83-12 10:57:00 Test Item Value Reference Range Interpretation Comments Basophils (test code = 1.1 See_Comment H [Aut omated message] The Basophils) system which ge nerated this result tra nsmitted reference range : <=1.0. The reference r andreia was not used to int erpret this result as normal/abnormal . [facility] NortheastOimqtenMNSLMCXVAO4662-31-49 10:57:00 Test Item Value Reference Range Interpretation Comments Segs-Bands # (test code = Segs-Bands #) 4.9 1.5-8.1 N [facility] NortheastYqyyynzRHOBWCISSL7921-89-59 10:57:00 Test Item Value Reference Range Interpretation Comments Segs (test code = Segs) 55.6 45.0-75.0 N [facility] NortheastBdvvijhFPKSZDJZLL0837-56-28 10:57:00 Test Item Value Reference Range Interpretation Comments Monocytes # (test code 0.7 See_Comment N [Aut omated message] The = Monocytes #) system which generated this result tra nsmitted reference range : <=0.8. The reference r andreia was not used to int erpret this result as normal/abnormal . [facility] NortheastLpldpaxSWYIFZOPWH9692-01-07 10:57:00 Test Item Value Reference Range Interpretation Comments Lymphocytes # (test code = Lymphocytes 2.6 1.0-5.5 N #) [facility] CenterMqqvkkhQICMXPIYI3251-62-83 10:57:00 Test Item Value Reference Range Interpretation Comments AGAP (test code = AGAP) 12.6 10.0-20.0 N [facility] CenterPgqdyqyYCBQZHQYP1121-96-72 10:57:00 Test Item Value Reference Range Interpretation Comments eGFR (test code = eGFR) 61 [facility] CenterAkucjfzGQJFWITWF7103-10-24 10:57:00 Test Item Value Reference Range Interpretation Comments Calcium Lvl (test code = Calcium Lvl) 8.5 8.5-10.5 N [facility] CenterUeyxekuXPNUYCQKO7087-33-55 10:57:00 Test Item Value Reference Range Interpretation Comments CO2 (test code = CO2) 28 24-32 N [facility] CenterYqeujdkFULQQYMZS3716-45-09 10:57:00 Test Item Value Reference Range Interpretation Comments Chloride Lvl (test code = Chloride Lvl) 102 95-109 N [facility] CenterMhqmkeoLFYLTNDIH2638-23-83 10:57:00 Test Item Value Reference Range Interpretation Comments Potassium Lvl (test code = Potassium 3.6 3.5-5.1 N Lvl) [facility] CenterJjcisybDRENXGQYD7476-63-90 10:57:00 Test Item Value Reference Range Interpretation Comments BUN (test code = BUN) 19 7-22 N [facility] CenterMurewfmBTCABSOLN6989-92-83 10:57:00 Test Item Value Reference Range Interpretation Comments Glucose Lvl (test code = Glucose Lvl) 114 70-99 H [facility] CenterCcopdgtVFSVVLCCE7470-02-66 10:57:00 Test Item Value Reference Range Interpretation Comments Sodium Lvl (test code = Sodium Lvl) 139 135-145 N [facility] CenterZnodcqqGGAVBJXFZ6592-60-16 10:57:00 Test Item Value Reference Range Interpretation Comments Creatinine Lvl (test code = Creatinine 0.9 0.5-1.4 N Lvl) [facility] NortheastResgkniXQQQHNDHWQ3840-58-54 10:57:00 Test Item Value Reference Range Interpretation Comments Hct (test code = Hct) 26.1 36.0-48.0 L [facility] NortheastOfptjzhKUZXLBUPIY6452-59-56 10:57:00 Test Item Value Reference Range Interpretation Comments WBC X 10x3 (test code = WBC X 10x3) 8.8 3.7-10.4 N [facility] NortheastRwbealdVSSWSCQYZG5563-49-93 10:57:00 Test Item Value Reference Range Interpretation Comments MCHC (test code = MCHC) 32.6 32.0-36.0 N [facility] NortheastXiwkncbQHIADMJJYN8091-69-13 10:57:00 Test Item Value Reference Range Interpretation Comments RDW (test code = RDW) 14.5 11.5-14.5 N [facility] NortheastLudmahaWXNJOPIDOV9952-93-49 10:57:00 Test Item Value Reference Range Interpretation Comments MCH (test code = MCH) 29.8 pg 27.0-31.0 N [facility] NortheastMrewqkmSSLSLEQGCZ4484-12-57 10:57:00 Test Item Value Reference Range Interpretation Comments MCV (test code = MCV) 91.6 81.0-99.0 N [facility] NortheastSmyetswJKOHMBBQJB2884-39-59 10:57:00 Test Item Value Reference Range Interpretation Comments Hgb (test code = Hgb) 8.5 12.0-16.0 L [facility] NortheastDdoxgdtNICGERCFBQ1771-31-61 10:57:00 Test Item Value Reference Range Interpretation Comments RBC X 10x6 (test code = RBC X 10x6) 2.85 4.20-5.40 L [facility] NortheastMnzpybuMJRWMYVDHX0022-40-96 10:57:00 Test Item Value Reference Range Interpretation Comments Platelet (test code = Platelet) 423 133-450 N [facility] NortheastXzupnyuMHCHLBJMEA5519-74-20 10:57:00 Test Item Value Reference Range Interpretation Comments MPV (test code = MPV) 7.3 7.4-10.4 L [facility] NortheastWgqtxqwVKOSOEILFQ2166-51-17 10:57:00 Test Item Value Reference Range Interpretation Comments Monocytes (test code = Monocytes) 8.5 2.0-12.0 N [facility] NortheastZfzhworEZERVSVYKW7873-84-55 10:57:00 Test Item Value Reference Range Interpretation Comments Eosinophils (test code = 4.9 See_Comment H [A utomated message] The Eosinophils) system which ge nerated this result tra nsmitted reference range : <=4.0. The reference r andreia was not used to int erpret this result as normal/abnormal . [facility] NortheastPilsdovIYVFJGAFZJ6413-46-16 10:57:00 Test Item Value Reference Range Interpretation Comments Lymphocytes (test code = Lymphocytes) 29.9 20.0-40.0 N [facility] NortheastEtwfjanMKYXROHQWG0740-70-85 10:57:00 Test Item Value Reference Range Interpretation Comments Eosinophils # (test code 0.4 See_Comment N [A utomated message] The = Eosinophils #) system whic h generated this result tra nsmitted reference range : <=0.5. The reference r andreia was not used to int erpret this result as normal/abnormal . [facility] NortheastNtdukuuUUOQCFFKHR7051-59-08 10:57:00 Test Item Value Reference Range Interpretation Comments Basophils # (test code 0.1 See_Comment N [Aut omated message] The = Basophils #) system which generated this result tra nsmitted reference range : <=0.2. The reference r andreia was not used to int erpret this result as normal/abnormal . [facility] NortheastTgiabdoAOBHYQXIZQ7420-34-43 10:57:00 Test Item Value Reference Range Interpretation Comments Basophils (test code = 1.1 See_Comment H [Aut omated message] The Basophils) system which ge nerated this result tra nsmitted reference range : <=1.0. The reference r andreia was not used to int erpret this result as normal/abnormal . [facility] NortheastZtmioizWDDNYJYXGO3049-24-13 10:57:00 Test Item Value Reference Range Interpretation Comments Segs-Bands # (test code = Segs-Bands #) 4.9 1.5-8.1 N [facility] NortheastVphzmuuBWKCAPPKSE1344-11-37 10:57:00 Test Item Value Reference Range Interpretation Comments Segs (test code = Segs) 55.6 45.0-75.0 N [facility] NortheastYlzmmrwSJDHBDSVYH4804-89-83 10:57:00 Test Item Value Reference Range Interpretation Comments Monocytes # (test code 0.7 See_Comment N [Aut omated message] The = Monocytes #) system which generated this result tra nsmitted reference range : <=0.8. The reference r andreia was not used to int erpret this result as normal/abnormal . [facility] NortheastMrlhxihCJIIANBBND4833-59-68 10:57:00 Test Item Value Reference Range Interpretation Comments Lymphocytes # (test code = Lymphocytes 2.6 1.0-5.5 N #) [facility] CenterPbkzhghHHAASASUF5683-84-81 10:57:00 Test Item Value Reference Range Interpretation Comments AGAP (test code = AGAP) 12.6 10.0-20.0 N [facility] CenterHxvtiokDQOPCQADQ7680-71-06 10:57:00 Test Item Value Reference Range Interpretation Comments eGFR (test code = eGFR) 61 [facility] CenterVwdpysmHYSDQCBPB0220-71-82 10:57:00 Test Item Value Reference Range Interpretation Comments Calcium Lvl (test code = Calcium Lvl) 8.5 8.5-10.5 N [facility] CenterBttfaxzPQZOXXFMZ7037-25-60 10:57:00 Test Item Value Reference Range Interpretation Comments CO2 (test code = CO2) 28 24-32 N [facility] CenterFqapmswICVJEKFPY1306-82-25 10:57:00 Test Item Value Reference Range Interpretation Comments Chloride Lvl (test code = Chloride Lvl) 102 95-109 N [facility] CenterAwukevwPVTCPJYYD6722-83-12 10:57:00 Test Item Value Reference Range Interpretation Comments Potassium Lvl (test code = Potassium 3.6 3.5-5.1 N Lvl) [facility] CenterUcsmvbiZKAZZAIXD3548-41-65 10:57:00 Test Item Value Reference Range Interpretation Comments BUN (test code = BUN) 19 7-22 N [facility] CenterQunmvloYBYRWVLZW8231-65-12 10:57:00 Test Item Value Reference Range Interpretation Comments Glucose Lvl (test code = Glucose Lvl) 114 70-99 H [facility] CenterZvqjhfuBAFNAJSWN6963-39-95 10:57:00 Test Item Value Reference Range Interpretation Comments Sodium Lvl (test code = Sodium Lvl) 139 135-145 N [facility] CenterDzghtxlDUDNYNROO3970-40-64 10:57:00 Test Item Value Reference Range Interpretation Comments Creatinine Lvl (test code = Creatinine 0.9 0.5-1.4 N Lvl) [facility] NortheastFmzxtsgCEZLLOXOBV2080-07-84 10:57:00 Test Item Value Reference Range Interpretation Comments Hct (test code = Hct) 26.1 36.0-48.0 L [facility] NortheastEugsqxmIDEEZTUFAW4171-09-99 10:57:00 Test Item Value Reference Range Interpretation Comments WBC X 10x3 (test code = WBC X 10x3) 8.8 3.7-10.4 N [facility] NortheastBloiaprOATBCLQDZB0420-78-69 10:57:00 Test Item Value Reference Range Interpretation Comments MCHC (test code = MCHC) 32.6 32.0-36.0 N [facility] NortheastMjddyqiCKUJIOQGSD4714-35-53 10:57:00 Test Item Value Reference Range Interpretation Comments RDW (test code = RDW) 14.5 11.5-14.5 N [facility] NortheastIosejsbOCSLSKXHSK2093-24-04 10:57:00 Test Item Value Reference Range Interpretation Comments MCH (test code = MCH) 29.8 pg 27.0-31.0 N [facility] NortheastKgnmfqtRRWUEGLJBR9127-74-49 10:57:00 Test Item Value Reference Range Interpretation Comments MCV (test code = MCV) 91.6 81.0-99.0 N [facility] NortheastUrtuavdLZPNQPJLJF9195-94-43 10:57:00 Test Item Value Reference Range Interpretation Comments Hgb (test code = Hgb) 8.5 12.0-16.0 L [facility] NortheastTnoplhnWRZLGZTWIY6239-06-56 10:57:00 Test Item Value Reference Range Interpretation Comments RBC X 10x6 (test code = RBC X 10x6) 2.85 4.20-5.40 L [facility] NortheastBxfhznzXSUHYALYFQ0921-21-96 10:57:00 Test Item Value Reference Range Interpretation Comments Platelet (test code = Platelet) 423 133-450 N [facility] NortheastYfpwdihGFKEDEDFBT9923-98-07 10:57:00 Test Item Value Reference Range Interpretation Comments MPV (test code = MPV) 7.3 7.4-10.4 L [facility] NortheastKzsjjxwFUJUFNOBDJ6956-05-83 10:57:00 Test Item Value Reference Range Interpretation Comments Monocytes (test code = Monocytes) 8.5 2.0-12.0 N [facility] NortheastHitpcrkMTDMEAPHEX5435-24-56 10:57:00 Test Item Value Reference Range Interpretation Comments Eosinophils (test code = 4.9 See_Comment H [A utomated message] The Eosinophils) system which ge nerated this result tra nsmitted reference range : <=4.0. The reference r andreia was not used to int erpret this result as normal/abnormal . [facility] NortheastBzsbghyLZUDDXCKPE2503-65-90 10:57:00 Test Item Value Reference Range Interpretation Comments Lymphocytes (test code = Lymphocytes) 29.9 20.0-40.0 N [facility] NortheastQmzinlpYRLSAGIYWV5901-74-46 10:57:00 Test Item Value Reference Range Interpretation Comments Eosinophils # (test code 0.4 See_Comment N [A utomated message] The = Eosinophils #) system ic h generated this result tra nsmitted reference range : <=0.5. The reference r andreia was not used to int erpret this result as normal/abnormal . [facility] NortheastEpmfliiOFQCDOXEAS3575-09-06 10:57:00 Test Item Value Reference Range Interpretation Comments Basophils # (test code 0.1 See_Comment N [Aut omated message] The = Basophils #) system which generated this result tra nsmitted reference range : <=0.2. The reference r andreia was not used to int erpret this result as normal/abnormal . [facility] NortheastIgtdqpfDDYKJVWACN1590-36-03 10:57:00 Test Item Value Reference Range Interpretation Comments Basophils (test code = 1.1 See_Comment H [Aut omated message] The Basophils) system which ge nerated this result tra nsmitted reference range : <=1.0. The reference r andreia was not used to int erpret this result as normal/abnormal . [facility] NortheastBmymbryZTRCKVLDMG0784-39-77 10:57:00 Test Item Value Reference Range Interpretation Comments Segs-Bands # (test code = Segs-Bands #) 4.9 1.5-8.1 N [facility] NortheastKusyozqATLXOVDHHI4590-90-65 10:57:00 Test Item Value Reference Range Interpretation Comments Segs (test code = Segs) 55.6 45.0-75.0 N [facility] NortheastFtwmsueRYYMSQKHTJ9270-58-13 10:57:00 Test Item Value Reference Range Interpretation Comments Monocytes # (test code 0.7 See_Comment N [Aut omated message] The = Monocytes #) system which generated this result tra nsmitted reference range : <=0.8. The reference r andreia was not used to int erpret this result as normal/abnormal . [facility] NortheastEfncjqnVOTEHPXNKM1761-27-98 10:57:00 Test Item Value Reference Range Interpretation Comments Lymphocytes # (test code = Lymphocytes 2.6 1.0-5.5 N #) [facility]AqhxjerUFYIFKOMR1475-38-81 10:57:00 Test Item Value Reference Range Interpretation Comments AGAP (test code = AGAP) 12.6 10.0-20.0 N [facility] CenterHuoqogrQGUODNVRG9375-70-07 10:57:00 Test Item Value Reference Range Interpretation Comments eGFR (test code = eGFR) 61 [facility] CenterXncyldcZAODTAUOO8039-19-20 10:57:00 Test Item Value Reference Range Interpretation Comments Calcium Lvl (test code = Calcium Lvl) 8.5 8.5-10.5 N [facility] CenterEpyvsvgRBMJBXIGZ8779-14-74 10:57:00 Test Item Value Reference Range Interpretation Comments CO2 (test code = CO2) 28 24-32 N [facility]AqjyyrwHEFRJKSYV6032-54-40 10:57:00 Test Item Value Reference Range Interpretation Comments Chloride Lvl (test code = Chloride Lvl) 102 95-109 N [facility] CenterItlehvnLKRUGFGRI4450-00-64 10:57:00 Test Item Value Reference Range Interpretation Comments Potassium Lvl (test code = Potassium 3.6 3.5-5.1 N Lvl) [facility] CenterXfhvrdySFBAFEKZL4969-16-32 10:57:00 Test Item Value Reference Range Interpretation Comments BUN (test code = BUN) 19 7-22 N [facility] CenterYtsojioBQWKNRDBK6643-31-88 10:57:00 Test Item Value Reference Range Interpretation Comments Glucose Lvl (test code = Glucose Lvl) 114 70-99 H [facility] CenterEvoppcwVBJGMLHDA7049-64-13 10:57:00 Test Item Value Reference Range Interpretation Comments Sodium Lvl (test code = Sodium Lvl) 139 135-145 N [facility] CenterPnediekHSEAGVBHT0532-32-94 10:57:00 Test Item Value Reference Range Interpretation Comments Creatinine Lvl (test code = Creatinine 0.9 0.5-1.4 N Lvl) [facility]LahoplaQJTXHBHYUJ8186-79-64 10:57:00 Test Item Value Reference Range Interpretation Comments Hct (test code = Hct) 26.1 36.0-48.0 L [facility] NortheastQosbbloWNZVMQMXJS9031-89-93 10:57:00 Test Item Value Reference Range Interpretation Comments WBC X 10x3 (test code = WBC X 10x3) 8.8 3.7-10.4 N [facility] NortheastTmlepwmJFZTCROYHP2830-43-55 10:57:00 Test Item Value Reference Range Interpretation Comments MCHC (test code = MCHC) 32.6 32.0-36.0 N [facility] NortheastKgivadiEEAFWZVNHR5500-99-15 10:57:00 Test Item Value Reference Range Interpretation Comments RDW (test code = RDW) 14.5 11.5-14.5 N [facility] NortheastJmsxdmjABRZXDPCSF3969-16-19 10:57:00 Test Item Value Reference Range Interpretation Comments MCH (test code = MCH) 29.8 pg 27.0-31.0 N [facility] NortheastXmlgavfDJDZBJCXVH1633-61-93 10:57:00 Test Item Value Reference Range Interpretation Comments MCV (test code = MCV) 91.6 81.0-99.0 N [facility] NortheastHoinsscVFIGFTIQBZ0470-81-37 10:57:00 Test Item Value Reference Range Interpretation Comments Hgb (test code = Hgb) 8.5 12.0-16.0 L [facility] NortheastHtbpyuyBNCFCRKNVM7685-16-89 10:57:00 Test Item Value Reference Range Interpretation Comments RBC X 10x6 (test code = RBC X 10x6) 2.85 4.20-5.40 L [facility] NortheastExzhmclKRVDVDQTOI4345-67-06 10:57:00 Test Item Value Reference Range Interpretation Comments Platelet (test code = Platelet) 423 133-450 N [facility] NortheastZidicneZLYSIALVIQ2369-43-55 10:57:00 Test Item Value Reference Range Interpretation Comments MPV (test code = MPV) 7.3 7.4-10.4 L [facility] NortheastLeqvmhqQJEAXOLBEQ9275-06-71 10:57:00 Test Item Value Reference Range Interpretation Comments Monocytes (test code = Monocytes) 8.5 2.0-12.0 N [facility] NortheastYlympnkCTBIGFXLDV9411-64-57 10:57:00 Test Item Value Reference Range Interpretation Comments Eosinophils (test code = Eosinophils) 4.9 <=4.0 H [facility] NortheastIbrraarWHMXLMUOYO0046-96-83 10:57:00 Test Item Value Reference Range Interpretation Comments Lymphocytes (test code = Lymphocytes) 29.9 20.0-40.0 N [facility] NortheastQfgotuoODBKNZVULX2799-74-21 10:57:00 Test Item Value Reference Range Interpretation Comments Eosinophils # (test code = Eosinophils 0.4 <=0.5 N #) [facility] NortheastBuylxloZDZVVHTUYD5518-70-51 10:57:00 Test Item Value Reference Range Interpretation Comments Basophils # (test code = Basophils #) 0.1 <=0.2 N [facility] NortheastPmkhwfgPPZNWVLNQT5523-70-65 10:57:00 Test Item Value Reference Range Interpretation Comments Basophils (test code = Basophils) 1.1 <=1.0 H [facility] NortheastVxmwaezIOMERPTNOP9382-59-92 10:57:00 Test Item Value Reference Range Interpretation Comments Segs-Bands # (test code = Segs-Bands #) 4.9 1.5-8.1 N [facility] NortheastTwbpibmJORXBHSJVN3354-88-37 10:57:00 Test Item Value Reference Range Interpretation Comments Segs (test code = Segs) 55.6 45.0-75.0 N [facility] NortheastVzaraoaVFCQFDGPVF8887-90-22 10:57:00 Test Item Value Reference Range Interpretation Comments Monocytes # (test code = Monocytes #) 0.7 <=0.8 N [facility] NortheastMkqsavqHRAXIYHWGV4769-47-15 10:57:00 Test Item Value Reference Range Interpretation Comments Lymphocytes # (test code = Lymphocytes 2.6 1.0-5.5 N #) [facility] CenterQojmfifVGZSRKRRF4560-35-45 10:57:00 Test Item Value Reference Range Interpretation Comments AGAP (test code = AGAP) 12.6 10.0-20.0 N [facility] CenterWzillwzZTYKDUYPS7900-46-73 10:57:00 Test Item Value Reference Range Interpretation Comments eGFR (test code = eGFR) 61 [facility] CenterGvsxdgzRMVLZCPRV0040-22-78 10:57:00 Test Item Value Reference Range Interpretation Comments Calcium Lvl (test code = Calcium Lvl) 8.5 8.5-10.5 N [facility] CenterKbiooztDUTMXGKZB7352-35-17 10:57:00 Test Item Value Reference Range Interpretation Comments CO2 (test code = CO2) 28 24-32 N [facility] CenterXuhbqoiOKONPUREO4620-84-01 10:57:00 Test Item Value Reference Range Interpretation Comments Chloride Lvl (test code = Chloride Lvl) 102 95-109 N [facility] CenterZnmcittUJDBHDVCU8383-24-27 10:57:00 Test Item Value Reference Range Interpretation Comments Potassium Lvl (test code = Potassium 3.6 3.5-5.1 N Lvl) [facility] CenterTknxnmxTAWAXUJBL3701-24-33 10:57:00 Test Item Value Reference Range Interpretation Comments BUN (test code = BUN) 19 7-22 N [facility] CenterMsuqjoeXWKYFOWAC3148-95-36 10:57:00 Test Item Value Reference Range Interpretation Comments Glucose Lvl (test code = Glucose Lvl) 114 70-99 H [facility] CenterYxuxjonSZKWBMGOL9112-36-13 10:57:00 Test Item Value Reference Range Interpretation Comments Sodium Lvl (test code = Sodium Lvl) 139 135-145 N [facility] CenterYjzcksvMWYRHELYL3058-92-23 10:57:00 Test Item Value Reference Range Interpretation Comments Creatinine Lvl (test code = Creatinine 0.9 0.5-1.4 N Lvl) [facility] NortheastAkbucqkNBNLKRBLBW5226-61-28 10:57:00 Test Item Value Reference Range Interpretation Comments Hct (test code = Hct) 26.1 36.0-48.0 L [facility] NortheastPsqfyaqMABQDHFSFQ1014-59-95 10:57:00 Test Item Value Reference Range Interpretation Comments WBC X 10x3 (test code = WBC X 10x3) 8.8 3.7-10.4 N [facility] NortheastLkppbttPMRZNFFPFU9331-28-69 10:57:00 Test Item Value Reference Range Interpretation Comments MCHC (test code = MCHC) 32.6 32.0-36.0 N [facility] NortheastOpshobdWTUJITONZI0244-38-80 10:57:00 Test Item Value Reference Range Interpretation Comments RDW (test code = RDW) 14.5 11.5-14.5 N [facility] NortheastTcljnedGTCFTILELM3234-31-06 10:57:00 Test Item Value Reference Range Interpretation Comments MCH (test code = MCH) 29.8 pg 27.0-31.0 N [facility] NortheastPuocpxsEFXMDYSENM4121-06-96 10:57:00 Test Item Value Reference Range Interpretation Comments MCV (test code = MCV) 91.6 81.0-99.0 N [facility] NortheastLndcvjaJHUHPYAVPU8206-54-78 10:57:00 Test Item Value Reference Range Interpretation Comments Hgb (test code = Hgb) 8.5 12.0-16.0 L [facility] NortheastFynrukhWKBHDWROCP4769-66-29 10:57:00 Test Item Value Reference Range Interpretation Comments RBC X 10x6 (test code = RBC X 10x6) 2.85 4.20-5.40 L [facility] NortheastBmfjpshQOSBYRETSV2007-74-09 10:57:00 Test Item Value Reference Range Interpretation Comments Platelet (test code = Platelet) 423 133-450 N [facility] NortheastEzfvuipTPPBUIDCZV8105-85-45 10:57:00 Test Item Value Reference Range Interpretation Comments MPV (test code = MPV) 7.3 7.4-10.4 L [facility] NortheastXktpncjMVHZPYIZSL2590-76-06 10:57:00 Test Item Value Reference Range Interpretation Comments Monocytes (test code = Monocytes) 8.5 2.0-12.0 N [facility] NortheastBrxmuqqVFKJYBFJLN1222-24-64 10:57:00 Test Item Value Reference Range Interpretation Comments Eosinophils (test code = 4.9 See_Comment H [A utomated message] The Eosinophils) system which ge nerated this result tra nsmitted reference range : <=4.0. The reference r andreia was not used to int erpret this result as normal/abnormal . [facility] NortheastJwjtlqaWQZLAGIODY2409-01-77 10:57:00 Test Item Value Reference Range Interpretation Comments Lymphocytes (test code = Lymphocytes) 29.9 20.0-40.0 N [facility] NortheastVharhvuLJFVASQNUR8025-18-94 10:57:00 Test Item Value Reference Range Interpretation Comments Eosinophils # (test code 0.4 See_Comment N [A utomated message] The = Eosinophils #) system [facility] generated this result tra nsmitted reference range : <=0.5. The reference r andreia was not used to int erpret this result as normal/abnormal . [facility] NortheastGntleyeTDGOPPVGWK6760-79-16 10:57:00 Test Item Value Reference Range Interpretation Comments Basophils # (test code 0.1 See_Comment N [Aut omated message] The = Basophils #) system which generated this result tra nsmitted reference range : <=0.2. The reference r andreia was not used to int erpret this result as normal/abnormal . [facility] NortheastNjatnjgYGRNKWSEXR3765-05-45 10:57:00 Test Item Value Reference Range Interpretation Comments Basophils (test code = 1.1 See_Comment H [Aut omated message] The Basophils) system which ge nerated this result tra nsmitted reference range : <=1.0. The reference r andreia was not used to int erpret this result as normal/abnormal . [facility] NortheastSuqftskYCQJAUCJXE2652-41-52 10:57:00 Test Item Value Reference Range Interpretation Comments Segs-Bands # (test code = Segs-Bands #) 4.9 1.5-8.1 N [facility] NortheastQsmvuwfPSGPSXYETN1201-24-85 10:57:00 Test Item Value Reference Range Interpretation Comments Segs (test code = Segs) 55.6 45.0-75.0 N [facility] NortheastWmxdtmrIZYSTWXPXR1863-22-80 10:57:00 Test Item Value Reference Range Interpretation Comments Monocytes # (test code 0.7 See_Comment N [Aut omated message] The = Monocytes #) system which generated this result tra nsmitted reference range : <=0.8. The reference r andreia was not used to int erpret this result as normal/abnormal . [facility] NortheastYfmswrbTAAREVEUBS8902-74-19 10:57:00 Test Item Value Reference Range Interpretation Comments Lymphocytes # (test code = Lymphocytes 2.6 1.0-5.5 N #) [facility] CenterLuqsxqzNZRYENMFB9940-00-37 10:57:00 Test Item Value Reference Range Interpretation Comments AGAP (test code = AGAP) 12.6 10.0-20.0 N [facility] CenterRnmbavbYLBIHTPUS1560-62-25 10:57:00 Test Item Value Reference Range Interpretation Comments eGFR (test code = eGFR) 61 [facility] CenterRfgrtpcWCSMPGZFT2486-15-50 10:57:00 Test Item Value Reference Range Interpretation Comments Calcium Lvl (test code = Calcium Lvl) 8.5 8.5-10.5 N [facility] CenterQxgnkxmWVYZGWHKN8645-53-48 10:57:00 Test Item Value Reference Range Interpretation Comments CO2 (test code = CO2) 28 24-32 N [facility] CenterYlxoiamYJGZBXIEN0292-98-30 10:57:00 Test Item Value Reference Range Interpretation Comments Chloride Lvl (test code = Chloride Lvl) 102 95-109 N [facility] CenterBwubajeGTOEXEIBG6834-88-00 10:57:00 Test Item Value Reference Range Interpretation Comments Potassium Lvl (test code = Potassium 3.6 3.5-5.1 N Lvl) [facility] CenterKisacsxKYGSGUORE7665-60-20 10:57:00 Test Item Value Reference Range Interpretation Comments BUN (test code = BUN) 19 7-22 N [facility] CenterAmljngzJAQVITPOK8508-89-67 10:57:00 Test Item Value Reference Range Interpretation Comments Glucose Lvl (test code = Glucose Lvl) 114 70-99 H [facility] CenterYrziwmsRORSTODYJ1037-08-15 10:57:00 Test Item Value Reference Range Interpretation Comments Sodium Lvl (test code = Sodium Lvl) 139 135-145 N [facility] CenterWeeqazgDMCOCZUQE5971-43-96 10:57:00 Test Item Value Reference Range Interpretation Comments Creatinine Lvl (test code = Creatinine 0.9 0.5-1.4 N Lvl) [facility] NortheastSfsivegLGZOYMZQFD4467-52-63 10:57:00 Test Item Value Reference Range Interpretation Comments Hct (test code = Hct) 26.1 36.0-48.0 L [facility] NortheastHeuwzllFWISGQZFLB9139-62-16 10:57:00 Test Item Value Reference Range Interpretation Comments WBC X 10x3 (test code = WBC X 10x3) 8.8 3.7-10.4 N [facility] NortheastSwuyosxPOANTPSHSV4917-36-26 10:57:00 Test Item Value Reference Range Interpretation Comments MCHC (test code = MCHC) 32.6 32.0-36.0 N [facility] NortheastIoaztgaBVPVCESCAO9935-91-31 10:57:00 Test Item Value Reference Range Interpretation Comments RDW (test code = RDW) 14.5 11.5-14.5 N [facility] NortheastVneczsaMZJWFHCFXA0889-54-11 10:57:00 Test Item Value Reference Range Interpretation Comments MCH (test code = MCH) 29.8 pg 27.0-31.0 N [facility] NortheastNiohebgQQZHBTWFKX4587-15-63 10:57:00 Test Item Value Reference Range Interpretation Comments MCV (test code = MCV) 91.6 81.0-99.0 N [facility] NortheastDjpgyukKLBTLHJNZF0753-45-66 10:57:00 Test Item Value Reference Range Interpretation Comments Hgb (test code = Hgb) 8.5 12.0-16.0 L [facility] NortheastAoqdtrmHGSPQJEIQG6118-32-68 10:57:00 Test Item Value Reference Range Interpretation Comments RBC X 10x6 (test code = RBC X 10x6) 2.85 4.20-5.40 L [facility] NortheastMghjzdnFFGXSFMPQX1996-43-45 10:57:00 Test Item Value Reference Range Interpretation Comments Platelet (test code = Platelet) 423 133-450 N [facility] NortheastTasyhwiWXOOLVETEK5484-61-24 10:57:00 Test Item Value Reference Range Interpretation Comments MPV (test code = MPV) 7.3 7.4-10.4 L [facility] NortheastJpoyooeUTOFMEJWHA8336-27-62 10:57:00 Test Item Value Reference Range Interpretation Comments Monocytes (test code = Monocytes) 8.5 2.0-12.0 N [facility] NortheastRiqcqcjFYGEDWRBCZ1839-94-66 10:57:00 Test Item Value Reference Range Interpretation Comments Eosinophils (test code = 4.9 See_Comment H [A utomated message] The Eosinophils) system which ge nerated this result tra nsmitted reference range : <=4.0. The reference r andreia was not used to int erpret this result as normal/abnormal . [facility] NortheastGoxvmagSLHRUCEXSZ3393-52-78 10:57:00 Test Item Value Reference Range Interpretation Comments Lymphocytes (test code = Lymphocytes) 29.9 20.0-40.0 N [facility] NortheastNuqbinqLQBPEDRVBF9846-00-36 10:57:00 Test Item Value Reference Range Interpretation Comments Eosinophils # (test code 0.4 See_Comment N [A utomated message] The = Eosinophils #) system [facility] h generated this result tra nsmitted reference range : <=0.5. The reference r andreia was not used to int erpret this result as normal/abnormal . [facility] NortheastLuvhtmjDJNWZHXGXX7246-69-96 10:57:00 Test Item Value Reference Range Interpretation Comments Basophils # (test code 0.1 See_Comment N [Aut omated message] The = Basophils #) system which generated this result tra nsmitted reference range : <=0.2. The reference r andreia was not used to int erpret this result as normal/abnormal . [facility] NortheastZjmediqJYRWTTDRBI1509-62-54 10:57:00 Test Item Value Reference Range Interpretation Comments Basophils (test code = 1.1 See_Comment H [Aut omated message] The Basophils) system which ge nerated this result tra nsmitted reference range : <=1.0. The reference r andreia was not used to int erpret this result as normal/abnormal . [facility] NortheastCuirwonTFPQACLQPU8374-79-37 10:57:00 Test Item Value Reference Range Interpretation Comments Segs-Bands # (test code = Segs-Bands #) 4.9 1.5-8.1 N [facility] NortheastWywlkwdSRCFUOEKZV5423-00-95 10:57:00 Test Item Value Reference Range Interpretation Comments Segs (test code = Segs) 55.6 45.0-75.0 N [facility] NortheastYawzcgyPIZTUSYWLB4828-05-14 10:57:00 Test Item Value Reference Range Interpretation Comments Monocytes # (test code 0.7 See_Comment N [Aut omated message] The = Monocytes #) system which generated this result tra nsmitted reference range : <=0.8. The reference r andreia was not used to int erpret this result as normal/abnormal . [facility] NortheastGumscbtWBXUNTIBKP3941-17-22 10:57:00 Test Item Value Reference Range Interpretation Comments Lymphocytes # (test code = Lymphocytes 2.6 1.0-5.5 N #) [facility] CenterAcplucfJIJPTPOFV2811-09-09 10:57:00 Test Item Value Reference Range Interpretation Comments AGAP (test code = AGAP) 12.6 10.0-20.0 N [facility] CenterFzghybeYCJFWAQGV2370-75-36 10:57:00 Test Item Value Reference Range Interpretation Comments eGFR (test code = eGFR) 61 [facility] CenterMqgwkgePPUWAWAEH9995-17-20 10:57:00 Test Item Value Reference Range Interpretation Comments Calcium Lvl (test code = Calcium Lvl) 8.5 8.5-10.5 N [facility] CenterXaxurokIYCWGWCBS1916-83-48 10:57:00 Test Item Value Reference Range Interpretation Comments CO2 (test code = CO2) 28 24-32 N [facility] CenterDedydaiVYOIVGBXT2852-54-36 10:57:00 Test Item Value Reference Range Interpretation Comments Chloride Lvl (test code = Chloride Lvl) 102 95-109 N [facility] CenterHgyteupZFBEQZDEC6380-87-95 10:57:00 Test Item Value Reference Range Interpretation Comments Potassium Lvl (test code = Potassium 3.6 3.5-5.1 N Lvl) [facility] CenterHkwyaahVPNHZLASW4790-65-56 10:57:00 Test Item Value Reference Range Interpretation Comments BUN (test code = BUN) 19 7-22 N [facility] CenterCtisuxpMYBKWCAFM1087-46-87 10:57:00 Test Item Value Reference Range Interpretation Comments Glucose Lvl (test code = Glucose Lvl) 114 70-99 H [facility] CenterCgtfexqCHYLLAJCC9530-46-51 10:57:00 Test Item Value Reference Range Interpretation Comments Sodium Lvl (test code = Sodium Lvl) 139 135-145 N [facility] CenterGezchdvQCRTSPYWY3515-82-38 10:57:00 Test Item Value Reference Range Interpretation Comments Creatinine Lvl (test code = Creatinine 0.9 0.5-1.4 N Lvl) [facility] NortheastCfkyjaqNVKNRSBGOZ8083-12-89 10:57:00 Test Item Value Reference Range Interpretation Comments Hct (test code = Hct) 26.1 36.0-48.0 L [facility] NortheastTahtoenKLOBARYPNN2180-69-40 10:57:00 Test Item Value Reference Range Interpretation Comments WBC X 10x3 (test code = WBC X 10x3) 8.8 3.7-10.4 N [facility] NortheastBbptfozEHDMLWGHCQ3779-79-58 10:57:00 Test Item Value Reference Range Interpretation Comments MCHC (test code = MCHC) 32.6 32.0-36.0 N [facility] NortheastXnuhqzxSCDSZOLXHS2299-15-20 10:57:00 Test Item Value Reference Range Interpretation Comments RDW (test code = RDW) 14.5 11.5-14.5 N [facility] NortheastNxoehlyGYGNPWUVXT2353-36-22 10:57:00 Test Item Value Reference Range Interpretation Comments MCH (test code = MCH) 29.8 pg 27.0-31.0 N [facility] NortheastVxlpenkLQHUKTXSGF5506-60-12 10:57:00 Test Item Value Reference Range Interpretation Comments MCV (test code = MCV) 91.6 81.0-99.0 N [facility] NortheastDxagwklZPDYJDIMIQ9160-70-44 10:57:00 Test Item Value Reference Range Interpretation Comments Hgb (test code = Hgb) 8.5 12.0-16.0 L [facility] NortheastEgcdiwlTVEARCSBUY7568-69-15 10:57:00 Test Item Value Reference Range Interpretation Comments RBC X 10x6 (test code = RBC X 10x6) 2.85 4.20-5.40 L [facility] NortheastVcodrdfVVIPJGVKXD0262-32-59 10:57:00 Test Item Value Reference Range Interpretation Comments Platelet (test code = Platelet) 423 133-450 N [facility] NortheastGumsjqqPAQKFEIWPT4500-05-45 10:57:00 Test Item Value Reference Range Interpretation Comments MPV (test code = MPV) 7.3 7.4-10.4 L [facility] NortheastIatfwhpFOIFJHVEOQ5544-19-81 10:57:00 Test Item Value Reference Range Interpretation Comments Monocytes (test code = Monocytes) 8.5 2.0-12.0 N [facility] NortheastGjqutwwUOZNYDKVOE5594-49-11 10:57:00 Test Item Value Reference Range Interpretation Comments Eosinophils (test code = 4.9 See_Comment H [A utomated message] The Eosinophils) system which ge nerated this result tra nsmitted reference range : <=4.0. The reference r andreia was not used to int erpret this result as normal/abnormal . [facility] NortheastWrdtzatCSYLFVJWXV8642-96-62 10:57:00 Test Item Value Reference Range Interpretation Comments Lymphocytes (test code = Lymphocytes) 29.9 20.0-40.0 N [facility] NortheastZiupldlQKTDNSZGPB7302-92-94 10:57:00 Test Item Value Reference Range Interpretation Comments Eosinophils # (test code 0.4 See_Comment N [A utomated message] The = Eosinophils #) system whic h generated this result tra nsmitted reference range : <=0.5. The reference r andreia was not used to int erpret this result as normal/abnormal . [facility] NortheastMjktmitSERMQRHUWX1691-79-81 10:57:00 Test Item Value Reference Range Interpretation Comments Basophils # (test code 0.1 See_Comment N [Aut omated message] The = Basophils #) system which generated this result tra nsmitted reference range : <=0.2. The reference r andreia was not used to int erpret this result as normal/abnormal . [facility] NortheastLnoaisxGIUZZOQXRF6631-06-91 10:57:00 Test Item Value Reference Range Interpretation Comments Basophils (test code = 1.1 See_Comment H [Aut omated message] The Basophils) system which ge nerated this result tra nsmitted reference range : <=1.0. The reference r andreia was not used to int erpret this result as normal/abnormal . [facility] NortheastQyfapvjAEJUCEFKWV1425-60-33 10:57:00 Test Item Value Reference Range Interpretation Comments Segs-Bands # (test code = Segs-Bands #) 4.9 1.5-8.1 N [facility] NortheastYrmbbxePOVGLCDJIQ4043-12-30 10:57:00 Test Item Value Reference Range Interpretation Comments Segs (test code = Segs) 55.6 45.0-75.0 N [facility] NortheastOjkaicoLLLVDPYSFM6417-57-38 10:57:00 Test Item Value Reference Range Interpretation Comments Monocytes # (test code 0.7 See_Comment N [Aut omated message] The = Monocytes #) system which generated this result tra nsmitted reference range : <=0.8. The reference r andreia was not used to int erpret this result as normal/abnormal . [facility] NortheastEtluqhbXVJEBIBIJK8752-84-38 10:57:00 Test Item Value Reference Range Interpretation Comments Lymphocytes # (test code = Lymphocytes 2.6 1.0-5.5 N #) [facility] CenterHouhiwfSTRCUTLIH8736-58-24 10:57:00 Test Item Value Reference Range Interpretation Comments AGAP (test code = AGAP) 12.6 10.0-20.0 N [facility] CenterGjhyromSYUCCFGUQ9932-81-39 10:57:00 Test Item Value Reference Range Interpretation Comments eGFR (test code = eGFR) 61 [facility] CenterAuasftqMXYSJDDBN2024-39-12 10:57:00 Test Item Value Reference Range Interpretation Comments Calcium Lvl (test code = Calcium Lvl) 8.5 8.5-10.5 N [facility] CenterIqfjifnCKJWXLYDW0742-65-74 10:57:00 Test Item Value Reference Range Interpretation Comments CO2 (test code = CO2) 28 24-32 N [facility] CenterQwvtuucKTMQGCOYK9607-90-23 10:57:00 Test Item Value Reference Range Interpretation Comments Chloride Lvl (test code = Chloride Lvl) 102 95-109 N [facility] CenterOqvkdyqXAZGTKXSX4140-64-28 10:57:00 Test Item Value Reference Range Interpretation Comments Potassium Lvl (test code = Potassium 3.6 3.5-5.1 N Lvl) [facility] CenterQvgvtihOUDZZAEWC0155-92-73 10:57:00 Test Item Value Reference Range Interpretation Comments BUN (test code = BUN) 19 7-22 N [facility] CenterKjtgrjoPYGEVFRLH6914-27-89 10:57:00 Test Item Value Reference Range Interpretation Comments Glucose Lvl (test code = Glucose Lvl) 114 70-99 H [facility] CenterXdbblcpXOLCUNAUG5173-81-27 10:57:00 Test Item Value Reference Range Interpretation Comments Sodium Lvl (test code = Sodium Lvl) 139 135-145 N [facility] CenterUqmabxiPJYIAYEZG6452-96-19 10:57:00 Test Item Value Reference Range Interpretation Comments Creatinine Lvl (test code = Creatinine 0.9 0.5-1.4 N Lvl) [facility] NortheastRjthggiKAREQZCDFW9127-73-94 10:57:00 Test Item Value Reference Range Interpretation Comments Hct (test code = Hct) 26.1 36.0-48.0 [facility] NortheastAjuedoeULROFWTWKF8095-38-21 10:57:00 Test Item Value Reference Range Interpretation Comments WBC X 10x3 (test code = WBC X 10x3) 8.8 3.7-10.4 [facility] NortheastRozhgwvKPQGNPEBEZ5887-27-70 10:57:00 Test Item Value Reference Range Interpretation Comments MCHC (test code = MCHC) 32.6 32.0-36.0 [facility] NortheastAlwexjhLPDXZGTAGB8828-45-33 10:57:00 Test Item Value Reference Range Interpretation Comments RDW (test code = RDW) 14.5 11.5-14.5 [facility] NortheastPekxeeuWAPMLLEGOB9304-47-64 10:57:00 Test Item Value Reference Range Interpretation Comments MCH (test code = MCH) 29.8 pg 27.0-31.0 N [facility] NortheastAbsuppjFGQIZNFLKU6948-25-34 10:57:00 Test Item Value Reference Range Interpretation Comments MCV (test code = MCV) 91.6 81.0-99.0 N [facility] NortheastLuzgvzfIRYXPAVRML6058-76-39 10:57:00 Test Item Value Reference Range Interpretation Comments Hgb (test code = Hgb) 8.5 12.0-16.0 L [facility] NortheastToffvldSBYKLYAGSD0473-57-91 10:57:00 Test Item Value Reference Range Interpretation Comments RBC X 10x6 (test code = RBC X 10x6) 2.85 4.20-5.40 [facility] NortheastLatvdyzWNAZJRQPRM7507-28-15 10:57:00 Test Item Value Reference Range Interpretation Comments Platelet (test code = Platelet) 423 133-450 N [facility] NortheastEnfdwkvISSLBOKTTI0974-02-65 10:57:00 Test Item Value Reference Range Interpretation Comments MPV (test code = MPV) 7.3 7.4-10.4 [facility] NortheastBnyygkdELPRKUWSAZ4523-88-80 10:57:00 Test Item Value Reference Range Interpretation Comments Monocytes (test code = Monocytes) 8.5 2.0-12.0 N [facility] NortheastNqleqtlFTOOIGVXDY7704-41-90 10:57:00 Test Item Value Reference Range Interpretation Comments Eosinophils (test code = 4.9 See_Comment H [A utomated message] The Eosinophils) system which ge nerated this result tra nsmitted reference range : <=4.0. The reference r andreia was not used to int erpret this result as normal/abnormal . [facility] NortheastDqvuuznUSPCUDVGSL0409-90-90 10:57:00 Test Item Value Reference Range Interpretation Comments Lymphocytes (test code = Lymphocytes) 29.9 20.0-40.0 N [facility] NortheastWvvktisFAMRPLODQK3319-65-23 10:57:00 Test Item Value Reference Range Interpretation Comments Eosinophils # (test code 0.4 See_Comment N [A utomated message] The = Eosinophils #) system ic h generated this result tra nsmitted reference range : <=0.5. The reference r andreia was not used to int erpret this result as normal/abnormal . [facility] NortheastZrjieekARXIBCWKYV4824-20-35 10:57:00 Test Item Value Reference Range Interpretation Comments Basophils # (test code 0.1 See_Comment N [Aut omated message] The = Basophils #) system which generated this result tra nsmitted reference range : <=0.2. The reference r andreia was not used to int erpret this result as normal/abnormal . [facility] NortheastQfdlyvnSARPMYKKMU8512-59-95 10:57:00 Test Item Value Reference Range Interpretation Comments Basophils (test code = 1.1 See_Comment H [Aut omated message] The Basophils) system which ge nerated this result tra nsmitted reference range : <=1.0. The reference r andreia was not used to int erpret this result as normal/abnormal . [facility] NortheastUurblsiVUMXVVYDXK2800-27-69 10:57:00 Test Item Value Reference Range Interpretation Comments Segs-Bands # (test code = Segs-Bands #) 4.9 1.5-8.1 N [facility] NortheastUxwsdhrHENMBEYRRM1568-35-66 10:57:00 Test Item Value Reference Range Interpretation Comments Segs (test code = Segs) 55.6 45.0-75.0 N [facility] NortheastJwpmgvyXYQBTMLJCE5958-04-68 10:57:00 Test Item Value Reference Range Interpretation Comments Monocytes # (test code 0.7 See_Comment N [Aut omated message] The = Monocytes #) system which generated this result tra nsmitted reference range : <=0.8. The reference r andreia was not used to int erpret this result as normal/abnormal . [facility] NortheastFlvhcrvUFUVODFKMH1813-22-65 10:57:00 Test Item Value Reference Range Interpretation Comments Lymphocytes # (test code = Lymphocytes 2.6 1.0-5.5 N #) [facility]RrttyqdLCCYULKJL6491-99-81 10:57:00 Test Item Value Reference Range Interpretation Comments AGAP (test code = AGAP) 12.6 10.0-20.0 N [facility] CenterTyozqygYHIELSRGZ0901-48-68 10:57:00 Test Item Value Reference Range Interpretation Comments eGFR (test code = eGFR) 61 [facility] CenterBwyyubqAEZEVPYCL4008-12-73 10:57:00 Test Item Value Reference Range Interpretation Comments Calcium Lvl (test code = Calcium Lvl) 8.5 8.5-10.5 N [facility] CenterDfhwdmsNRVPTNLED5054-18-98 10:57:00 Test Item Value Reference Range Interpretation Comments CO2 (test code = CO2) 28 24-32 N [facility] CenterQnfopiaFUISCHPFB0255-15-68 10:57:00 Test Item Value Reference Range Interpretation Comments Chloride Lvl (test code = Chloride Lvl) 102 95-109 N [facility] CenterBohnkcyAYIZLEIAF5909-42-45 10:57:00 Test Item Value Reference Range Interpretation Comments Potassium Lvl (test code = Potassium 3.6 3.5-5.1 N Lvl) [facility] CenterDtpsdapRRJFNNFXM2199-95-19 10:57:00 Test Item Value Reference Range Interpretation Comments BUN (test code = BUN) 19 7-22 N [facility] CenterAplvioeDXSLZBMJW2472-50-59 10:57:00 Test Item Value Reference Range Interpretation Comments Glucose Lvl (test code = Glucose Lvl) 114 70-99 H [facility] CenterKcztpktHLTWZIRES9706-30-48 10:57:00 Test Item Value Reference Range Interpretation Comments Sodium Lvl (test code = Sodium Lvl) 139 135-145 N [facility] CenterMuhknlyFCBHMGVCH9198-32-21 10:57:00 Test Item Value Reference Range Interpretation Comments Creatinine Lvl (test code = Creatinine 0.9 0.5-1.4 N Lvl) [facility] NortheastYtomhfkNTMKDRIJLQ5302-82-08 10:57:00 Test Item Value Reference Range Interpretation Comments Hct (test code = Hct) 26.1 36.0-48.0 L [facility] NortheastOdztsipSUGMJWUVWV0019-56-63 10:57:00 Test Item Value Reference Range Interpretation Comments WBC X 10x3 (test code = WBC X 10x3) 8.8 3.7-10.4 N [facility] NortheastCghgnalEOUEWLCUWT0907-83-15 10:57:00 Test Item Value Reference Range Interpretation Comments MCHC (test code = MCHC) 32.6 32.0-36.0 N [facility] NortheastSgixzvpHYFJUWZDNF4148-62-27 10:57:00 Test Item Value Reference Range Interpretation Comments RDW (test code = RDW) 14.5 11.5-14.5 N [facility] NortheastNlltmgvPVXUGRNQKT2484-01-80 10:57:00 Test Item Value Reference Range Interpretation Comments MCH (test code = MCH) 29.8 pg 27.0-31.0 N [facility] NortheastHybwehsPZDFTVAWSB6102-84-46 10:57:00 Test Item Value Reference Range Interpretation Comments MCV (test code = MCV) 91.6 81.0-99.0 N [facility] NortheastOqboksnZSHQXVMTQP5476-20-90 10:57:00 Test Item Value Reference Range Interpretation Comments Hgb (test code = Hgb) 8.5 12.0-16.0 L [facility] NortheastBchindvYAVIJXRKKE5997-79-56 10:57:00 Test Item Value Reference Range Interpretation Comments RBC X 10x6 (test code = RBC X 10x6) 2.85 4.20-5.40 L [facility] NortheastOsitgfuLGDDVSLBAL3938-11-38 10:57:00 Test Item Value Reference Range Interpretation Comments Platelet (test code = Platelet) 423 133-450 N [facility] NortheastHervztxJPFBSOHHCY4359-12-60 10:57:00 Test Item Value Reference Range Interpretation Comments MPV (test code = MPV) 7.3 7.4-10.4 L [facility] NortheastYquhgozXKJIUDYOIY6402-06-67 10:57:00 Test Item Value Reference Range Interpretation Comments Monocytes (test code = Monocytes) 8.5 2.0-12.0 N [facility] NortheastArqfklmCCRHNAOXUH1228-69-58 10:57:00 Test Item Value Reference Range Interpretation Comments Eosinophils (test code = 4.9 See_Comment H [A utomated message] The Eosinophils) system which ge nerated this result tra nsmitted reference range : <=4.0. The reference r andreia was not used to int erpret this result as normal/abnormal . [facility] NortheastSlwvsldMSFPWVSALI1427-18-56 10:57:00 Test Item Value Reference Range Interpretation Comments Lymphocytes (test code = Lymphocytes) 29.9 20.0-40.0 N [facility] NortheastEqwezgnAJXKYTZENO0926-66-49 10:57:00 Test Item Value Reference Range Interpretation Comments Eosinophils # (test code 0.4 See_Comment N [A utomated message] The = Eosinophils #) system ic h generated this result tra nsmitted reference range : <=0.5. The reference r andreia was not used to int erpret this result as normal/abnormal . [facility] NortheastVyhyyolPKMZWCKYXJ6259-22-80 10:57:00 Test Item Value Reference Range Interpretation Comments Basophils # (test code 0.1 See_Comment N [Aut omated message] The = Basophils #) system which generated this result tra nsmitted reference range : <=0.2. The reference r andreia was not used to int erpret this result as normal/abnormal . [facility] NortheastRmpopbtEKQKQOINLO5624-56-11 10:57:00 Test Item Value Reference Range Interpretation Comments Basophils (test code = 1.1 See_Comment H [Aut omated message] The Basophils) system which ge nerated this result tra nsmitted reference range : <=1.0. The reference r andreia was not used to int erpret this result as normal/abnormal . [facility] NortheastYwvekgvVGEDQNFTAJ0006-51-17 10:57:00 Test Item Value Reference Range Interpretation Comments Segs-Bands # (test code = Segs-Bands #) 4.9 1.5-8.1 N [facility] NortheastIknbmmgHZPKYXWFFF7139-84-77 10:57:00 Test Item Value Reference Range Interpretation Comments Segs (test code = Segs) 55.6 45.0-75.0 N [facility] NortheastJnmdcloGYYVTHIPUY5952-08-96 10:57:00 Test Item Value Reference Range Interpretation Comments Monocytes # (test code 0.7 See_Comment N [Aut omated message] The = Monocytes #) system which generated this result tra nsmitted reference range : <=0.8. The reference r andreia was not used to int erpret this result as normal/abnormal . [facility] NortheastWndvckhUIILOGOAFI3935-37-69 10:57:00 Test Item Value Reference Range Interpretation Comments Lymphocytes # (test code = Lymphocytes 2.6 1.0-5.5 N #) [facility] CenterNrelahpZTJQRYIMO4011-72-83 10:57:00 Test Item Value Reference Range Interpretation Comments AGAP (test code = AGAP) 12.6 10.0-20.0 N [facility] CenterUbcajtwOLFWVAAUI8683-52-92 10:57:00 Test Item Value Reference Range Interpretation Comments eGFR (test code = eGFR) 61 [facility] CenterHzykmrrCJCXUJUGM0179-52-09 10:57:00 Test Item Value Reference Range Interpretation Comments Calcium Lvl (test code = Calcium Lvl) 8.5 8.5-10.5 N [facility] CenterQthwzemFUNFWOQTB6197-49-28 10:57:00 Test Item Value Reference Range Interpretation Comments CO2 (test code = CO2) 28 24-32 N [facility] CenterWkxfkfxRWUGGPECL9630-03-78 10:57:00 Test Item Value Reference Range Interpretation Comments Chloride Lvl (test code = Chloride Lvl) 102 95-109 N [facility] CenterMidnlbxCGCKPNQTF3856-53-78 10:57:00 Test Item Value Reference Range Interpretation Comments Potassium Lvl (test code = Potassium 3.6 3.5-5.1 N Lvl) [facility] CenterVysvozrQRSNVPIMV8825-21-44 10:57:00 Test Item Value Reference Range Interpretation Comments BUN (test code = BUN) 19 7-22 N [facility] CenterYgaqlgqBNGFGOZVM9492-06-24 10:57:00 Test Item Value Reference Range Interpretation Comments Glucose Lvl (test code = Glucose Lvl) 114 70-99 H [facility] CenterApesiugVLEQFNFMD1145-83-40 10:57:00 Test Item Value Reference Range Interpretation Comments Sodium Lvl (test code = Sodium Lvl) 139 135-145 N [facility] CenterVwxcciwUPQXFRNVL8200-92-06 10:57:00 Test Item Value Reference Range Interpretation Comments Creatinine Lvl (test code = Creatinine 0.9 0.5-1.4 N Lvl) [facility] NortheastGssruhhBFEITGYOWY5932-96-93 10:57:00 Test Item Value Reference Range Interpretation Comments Hct (test code = Hct) 26.1 36.0-48.0 L [facility] NortheastDnhecnaJPNOGIYQWF9643-24-21 10:57:00 Test Item Value Reference Range Interpretation Comments WBC X 10x3 (test code = WBC X 10x3) 8.8 3.7-10.4 N [facility] NortheastEdgnxkbBHWVTIRJAR2247-15-96 10:57:00 Test Item Value Reference Range Interpretation Comments MCHC (test code = MCHC) 32.6 32.0-36.0 N [facility] NortheastUyldqlpMPYZUOUAJZ7980-31-84 10:57:00 Test Item Value Reference Range Interpretation Comments RDW (test code = RDW) 14.5 11.5-14.5 N [facility] NortheastJxysnieCICIRNHTAU8612-57-70 10:57:00 Test Item Value Reference Range Interpretation Comments MCH (test code = MCH) 29.8 pg 27.0-31.0 N [facility] NortheastJhsuiwqKENLUOZVVX5426-31-14 10:57:00 Test Item Value Reference Range Interpretation Comments MCV (test code = MCV) 91.6 81.0-99.0 N [facility] NortheastNcjzcmhXQURWOBSAE8607-33-88 10:57:00 Test Item Value Reference Range Interpretation Comments Hgb (test code = Hgb) 8.5 12.0-16.0 L [facility] NortheastUyyfbzxENVJJTGGFT2877-43-91 10:57:00 Test Item Value Reference Range Interpretation Comments RBC X 10x6 (test code = RBC X 10x6) 2.85 4.20-5.40 L [facility] NortheastSmscvvyWUQJQPAJUS1952-71-82 10:57:00 Test Item Value Reference Range Interpretation Comments Platelet (test code = Platelet) 423 133-450 N [facility] NortheastDfbnoloCXHTWVWCGL5563-65-80 10:57:00 Test Item Value Reference Range Interpretation Comments MPV (test code = MPV) 7.3 7.4-10.4 L [facility] NortheastYcpurxpBBPYYPVQHT6864-46-12 10:57:00 Test Item Value Reference Range Interpretation Comments Monocytes (test code = Monocytes) 8.5 2.0-12.0 N [facility] NortheastOsrvkmyLUUWQPBIGD6092-56-28 10:57:00 Test Item Value Reference Range Interpretation Comments Eosinophils (test code = 4.9 See_Comment H [A utomated message] The Eosinophils) system which ge nerated this result tra nsmitted reference range : <=4.0. The reference r andreia was not used to int erpret this result as normal/abnormal . [facility] NortheastCseekvhSNWVYRYSMT8190-44-64 10:57:00 Test Item Value Reference Range Interpretation Comments Lymphocytes (test code = Lymphocytes) 29.9 20.0-40.0 N [facility] NortheastImohxfwBWXGRQIKOD0578-73-47 10:57:00 Test Item Value Reference Range Interpretation Comments Eosinophils # (test code 0.4 See_Comment N [A utomated message] The = Eosinophils #) system wh h generated this result tra nsmitted reference range : <=0.5. The reference r andreia was not used to int erpret this result as normal/abnormal . [facility] NortheastAzvmzdyJPGFTZLHLT3994-13-39 10:57:00 Test Item Value Reference Range Interpretation Comments Basophils # (test code 0.1 See_Comment N [Aut omated message] The = Basophils #) system which generated this result tra nsmitted reference range : <=0.2. The reference r andreia was not used to int erpret this result as normal/abnormal . [facility] NortheastLuaxnhrTCVTMFCWTC4765-08-69 10:57:00 Test Item Value Reference Range Interpretation Comments Basophils (test code = 1.1 See_Comment H [Aut omated message] The Basophils) system which ge nerated this result tra nsmitted reference range : <=1.0. The reference r andreia was not used to int erpret this result as normal/abnormal . [facility] NortheastIlalrfiKFVEDVYDDR0699-17-93 10:57:00 Test Item Value Reference Range Interpretation Comments Segs-Bands # (test code = Segs-Bands #) 4.9 1.5-8.1 N [facility] NortheastDjqdtyfKTVRNMQFTD4296-75-84 10:57:00 Test Item Value Reference Range Interpretation Comments Segs (test code = Segs) 55.6 45.0-75.0 N [facility] NortheastItepfylEKRVVKQLSG4250-58-40 10:57:00 Test Item Value Reference Range Interpretation Comments Monocytes # (test code 0.7 See_Comment N [Aut omated message] The = Monocytes #) system which generated this result tra nsmitted reference range : <=0.8. The reference r andreia was not used to int erpret this result as normal/abnormal . [facility] NortheastAtdusyoTDTQKARWBQ4617-59-42 10:57:00 Test Item Value Reference Range Interpretation Comments Lymphocytes # (test code = Lymphocytes 2.6 1.0-5.5 N #) [facility] CenterWdgfggcBIMXIQPVW1056-74-06 10:57:00 Test Item Value Reference Range Interpretation Comments AGAP (test code = AGAP) 12.6 10.0-20.0 N [facility] CenterKfyerngKJDNDUNNT6348-19-32 10:57:00 Test Item Value Reference Range Interpretation Comments eGFR (test code = eGFR) 61 [facility] CenterPnldkkzWZMFYLSGA4030-25-58 10:57:00 Test Item Value Reference Range Interpretation Comments Calcium Lvl (test code = Calcium Lvl) 8.5 8.5-10.5 N [facility] CenterMgxcmtbCMCZXKRUZ6620-66-41 10:57:00 Test Item Value Reference Range Interpretation Comments CO2 (test code = CO2) 28 24-32 N [facility] CenterGffrphsPBQRLXEVO9782-20-43 10:57:00 Test Item Value Reference Range Interpretation Comments Chloride Lvl (test code = Chloride Lvl) 102 95-109 N [facility] CenterNwggofuKHJTFMOVZ2972-52-57 10:57:00 Test Item Value Reference Range Interpretation Comments Potassium Lvl (test code = Potassium 3.6 3.5-5.1 N Lvl) [facility] CenterSnhllggSJDSEWRXU8987-50-75 10:57:00 Test Item Value Reference Range Interpretation Comments BUN (test code = BUN) 19 7-22 N [facility] CenterPelrwrlBPSBBHSWG5456-65-28 10:57:00 Test Item Value Reference Range Interpretation Comments Glucose Lvl (test code = Glucose Lvl) 114 70-99 H [facility] CenterRrttsngTFSSDDZDP2678-27-45 10:57:00 Test Item Value Reference Range Interpretation Comments Sodium Lvl (test code = Sodium Lvl) 139 135-145 N [facility] CenterSdlarbzULDMRAFQL1208-17-96 10:57:00 Test Item Value Reference Range Interpretation Comments Creatinine Lvl (test code = Creatinine 0.9 0.5-1.4 N Lvl) [facility] NortheastVaqzqvjTTMKASIZCT6428-14-14 10:57:00 Test Item Value Reference Range Interpretation Comments Hct (test code = Hct) 26.1 36.0-48.0 L [facility] NortheastWzhqwfwGXYMJDXBNT8722-72-17 10:57:00 Test Item Value Reference Range Interpretation Comments WBC X 10x3 (test code = WBC X 10x3) 8.8 3.7-10.4 N [facility] NortheastGhlddseDMGLJRJJBR9530-02-21 10:57:00 Test Item Value Reference Range Interpretation Comments MCHC (test code = MCHC) 32.6 32.0-36.0 N [facility] NortheastEjsgytzNWBUCIRWXU6585-07-59 10:57:00 Test Item Value Reference Range Interpretation Comments RDW (test code = RDW) 14.5 11.5-14.5 N [facility] NortheastBqhbzqnUQFMHWLRKV8205-12-97 10:57:00 Test Item Value Reference Range Interpretation Comments MCH (test code = MCH) 29.8 pg 27.0-31.0 N [facility] NortheastTgupcmoNVMUAOOEHH8020-55-69 10:57:00 Test Item Value Reference Range Interpretation Comments MCV (test code = MCV) 91.6 81.0-99.0 N [facility] NortheastSnjnvfuXZOVAEWFVB4778-93-45 10:57:00 Test Item Value Reference Range Interpretation Comments Hgb (test code = Hgb) 8.5 12.0-16.0 L [facility] NortheastBwvxbfyUMRTUYXMRP1949-99-97 10:57:00 Test Item Value Reference Range Interpretation Comments RBC X 10x6 (test code = RBC X 10x6) 2.85 4.20-5.40 L [facility] NortheastSmzjhhcQTEWTIKCCG9843-08-87 10:57:00 Test Item Value Reference Range Interpretation Comments Platelet (test code = Platelet) 423 133-450 N [facility] NortheastTevrbwaHYUXUBSPSG3103-13-87 10:57:00 Test Item Value Reference Range Interpretation Comments MPV (test code = MPV) 7.3 7.4-10.4 L [facility] NortheastYvqipaiHTSJKWVRDZ8992-33-61 10:57:00 Test Item Value Reference Range Interpretation Comments Monocytes (test code = Monocytes) 8.5 2.0-12.0 N [facility] NortheastAmczhxvKLUWLOFIEU1182-41-05 10:57:00 Test Item Value Reference Range Interpretation Comments Eosinophils (test code = 4.9 See_Comment H [A utomated message] The Eosinophils) system which ge nerated this result tra nsmitted reference range : <=4.0. The reference r andreia was not used to int erpret this result as normal/abnormal . [facility] NortheastEjuhdvjVXFMKNQCYJ8216-44-94 10:57:00 Test Item Value Reference Range Interpretation Comments Lymphocytes (test code = Lymphocytes) 29.9 20.0-40.0 N [facility] NortheastRnluqqjDYJKKFSZDW7666-46-46 10:57:00 Test Item Value Reference Range Interpretation Comments Eosinophils # (test code 0.4 See_Comment N [A utomated message] The = Eosinophils #) system whic h generated this result tra nsmitted reference range : <=0.5. The reference r andreia was not used to int erpret this result as normal/abnormal . [facility] NortheastGdkhtttJGYUHFIIVL3091-63-98 10:57:00 Test Item Value Reference Range Interpretation Comments Basophils # (test code 0.1 See_Comment N [Aut omated message] The = Basophils #) system which generated this result tra nsmitted reference range : <=0.2. The reference r andreia was not used to int erpret this result as normal/abnormal . [facility] NortheastSxiiqekUSIUQQLRKJ1820-80-71 10:57:00 Test Item Value Reference Range Interpretation Comments Basophils (test code = 1.1 See_Comment H [Aut omated message] The Basophils) system which ge nerated this result tra nsmitted reference range : <=1.0. The reference r andreia was not used to int erpret this result as normal/abnormal . [facility] NortheastArjrbisICYPQYTGAT3879-96-81 10:57:00 Test Item Value Reference Range Interpretation Comments Segs-Bands # (test code = Segs-Bands #) 4.9 1.5-8.1 N [facility] NortheastZsxsvsqLXHUDREIIL1610-00-69 10:57:00 Test Item Value Reference Range Interpretation Comments Segs (test code = Segs) 55.6 45.0-75.0 N [facility] NortheastAuxofiwQRMLYNKBMG8614-94-51 10:57:00 Test Item Value Reference Range Interpretation Comments Monocytes # (test code 0.7 See_Comment N [Aut omated message] The = Monocytes #) system which generated this result tra nsmitted reference range : <=0.8. The reference r andreia was not used to int erpret this result as normal/abnormal . [facility] NortheastVzsflkoLOEQPUQTGQ6970-79-81 10:57:00 Test Item Value Reference Range Interpretation Comments Lymphocytes # (test code = Lymphocytes 2.6 1.0-5.5 N #) [facility]IkdakqpUURCLFKRG2327-10-90 10:57:00 Test Item Value Reference Range Interpretation Comments AGAP (test code = AGAP) 12.6 10.0-20.0 N [facility] CenterUwxlgltEJGDQHRZO5840-44-95 10:57:00 Test Item Value Reference Range Interpretation Comments eGFR (test code = eGFR) 61 [facility] CenterLqtuefoAYJGPZJKZ7450-25-76 10:57:00 Test Item Value Reference Range Interpretation Comments Calcium Lvl (test code = Calcium Lvl) 8.5 8.5-10.5 N [facility] CenterYusnwptAZGWUCVWM9183-35-24 10:57:00 Test Item Value Reference Range Interpretation Comments CO2 (test code = CO2) 28 24-32 N [facility] CenterJiqasreWLQMSIVRE7070-40-92 10:57:00 Test Item Value Reference Range Interpretation Comments Chloride Lvl (test code = Chloride Lvl) 102 95-109 N [facility] CenterBmosmivQBBPYARXF7346-98-07 10:57:00 Test Item Value Reference Range Interpretation Comments Potassium Lvl (test code = Potassium 3.6 3.5-5.1 N Lvl) [facility] CenterXqdtirhMDYDHKLXJ2303-50-95 10:57:00 Test Item Value Reference Range Interpretation Comments BUN (test code = BUN) 19 7-22 N [facility] CenterWbzgcbhZJAUPFLEI9840-52-16 10:57:00 Test Item Value Reference Range Interpretation Comments Glucose Lvl (test code = Glucose Lvl) 114 70-99 H [facility] CenterJzpzjkiXALCTYOOJ2806-66-20 10:57:00 Test Item Value Reference Range Interpretation Comments Sodium Lvl (test code = Sodium Lvl) 139 135-145 N [facility] CenterVjeoakoPGYFHIUBL9566-82-54 10:57:00 Test Item Value Reference Range Interpretation Comments Creatinine Lvl (test code = Creatinine 0.9 0.5-1.4 N Lvl) [facility]HhpcdhxKPVSLUVQDP7323-90-80 10:57:00 Test Item Value Reference Range Interpretation Comments Hct (test code = Hct) 26.1 36.0-48.0 L [facility] NortheastZjarfuzOBTPMDKRDJ6368-05-58 10:57:00 Test Item Value Reference Range Interpretation Comments WBC X 10x3 (test code = WBC X 10x3) 8.8 3.7-10.4 N [facility] NortheastRqcgpmaRZOPNSTZGX8862-58-86 10:57:00 Test Item Value Reference Range Interpretation Comments MCHC (test code = MCHC) 32.6 32.0-36.0 N [facility] NortheastMqoligfUPHKKDXZVW4558-00-72 10:57:00 Test Item Value Reference Range Interpretation Comments RDW (test code = RDW) 14.5 11.5-14.5 [facility]WkizutxFRKQXLXZLG9986-73-23 10:57:00 Test Item Value Reference Range Interpretation Comments MCH (test code = MCH) 29.8 pg 27.0-31.0 N [facility]XiymivjEXMXSBAOLR7502-41-17 10:57:00 Test Item Value Reference Range Interpretation Comments MCV (test code = MCV) 91.6 81.0-99.0 N [facility] NortheastWodtqrkIDBOCRTMRD1056-55-08 10:57:00 Test Item Value Reference Range Interpretation Comments Hgb (test code = Hgb) 8.5 12.0-16.0 L [facility] NortheastRvxksvyDHZCFWMIRW2431-98-89 10:57:00 Test Item Value Reference Range Interpretation Comments RBC X 10x6 (test code = RBC X 10x6) 2.85 4.20-5.40 [facility] NortheastTtisrgnXLSOSNPACR0531-33-50 10:57:00 Test Item Value Reference Range Interpretation Comments Platelet (test code = Platelet) 423 133-450 N [facility] NortheastZgifjqoARLBCIABRP6853-43-71 10:57:00 Test Item Value Reference Range Interpretation Comments MPV (test code = MPV) 7.3 7.4-10.4 [facility] NortheastKsucftcTLBKCLPDHK4748-64-83 10:57:00 Test Item Value Reference Range Interpretation Comments Monocytes (test code = Monocytes) 8.5 2.0-12.0 N [facility] NortheastRdemwyhVLPPIGAXMZ5611-14-81 10:57:00 Test Item Value Reference Range Interpretation Comments Eosinophils (test code = 4.9 See_Comment H [A utomated message] The Eosinophils) system which ge nerated this result tra nsmitted reference range : <=4.0. The reference r andreia was not used to int erpret this result as normal/abnormal . [facility] NortheastIuimqnuRRJRQFHOPI3663-61-28 10:57:00 Test Item Value Reference Range Interpretation Comments Lymphocytes (test code = Lymphocytes) 29.9 20.0-40.0 N [facility] NortheastUtkxqwpLXGVELVLFK3127-72-10 10:57:00 Test Item Value Reference Range Interpretation Comments Eosinophils # (test code 0.4 See_Comment N [A utomated message] The = Eosinophils #) system whic h generated this result tra nsmitted reference range : <=0.5. The reference r andreia was not used to int erpret this result as normal/abnormal . [facility] NortheastYjjwonpWQSYOASGGV3121-09-76 10:57:00 Test Item Value Reference Range Interpretation Comments Basophils # (test code 0.1 See_Comment N [Aut omated message] The = Basophils #) system which generated this result tra nsmitted reference range : <=0.2. The reference r andreia was not used to int erpret this result as normal/abnormal . [facility] NortheastCsfzdnsVXFNLLCHQH1552-70-81 10:57:00 Test Item Value Reference Range Interpretation Comments Basophils (test code = 1.1 See_Comment H [Aut omated message] The Basophils) system which ge nerated this result tra nsmitted reference range : <=1.0. The reference r andreia was not used to int erpret this result as normal/abnormal . [facility] NortheastMfpkesiSCPGXPVTMC8165-41-63 10:57:00 Test Item Value Reference Range Interpretation Comments Segs-Bands # (test code = Segs-Bands #) 4.9 1.5-8.1 N [facility] NortheastXrscuncHFVQGAXJRO8923-90-30 10:57:00 Test Item Value Reference Range Interpretation Comments Segs (test code = Segs) 55.6 45.0-75.0 N [facility] NortheastBnvvjztJWRFBHQOKW6785-79-01 10:57:00 Test Item Value Reference Range Interpretation Comments Monocytes # (test code 0.7 See_Comment N [Aut omated message] The = Monocytes #) system which generated this result tra nsmitted reference range : <=0.8. The reference r andreia was not used to int erpret this result as normal/abnormal . [facility] NortheastHpihqheAKOLYTWNGQ3843-19-89 10:57:00 Test Item Value Reference Range Interpretation Comments Lymphocytes # (test code = Lymphocytes 2.6 1.0-5.5 N #) [facility]SzcdebsRKMSRACYX1690-58-55 10:57:00 Test Item Value Reference Range Interpretation Comments AGAP (test code = AGAP) 12.6 10.0-20.0 N [facility] CenterNybynwaLJDXDHMJB5702-07-95 10:57:00 Test Item Value Reference Range Interpretation Comments eGFR (test code = eGFR) 61 [facility] CenterYwpoaosHDDHMYKOE2192-58-41 10:57:00 Test Item Value Reference Range Interpretation Comments Calcium Lvl (test code = Calcium Lvl) 8.5 8.5-10.5 N [facility] CenterUgieasmEOZJBCMLA2556-29-52 10:57:00 Test Item Value Reference Range Interpretation Comments CO2 (test code = CO2) 28 24-32 N [facility] CenterOpvwektIBKERADPE1194-40-29 10:57:00 Test Item Value Reference Range Interpretation Comments Chloride Lvl (test code = Chloride Lvl) 102 95-109 N [facility] CenterHydnsfbHLJAEYNKU6789-65-50 10:57:00 Test Item Value Reference Range Interpretation Comments Potassium Lvl (test code = Potassium 3.6 3.5-5.1 N Lvl) [facility] CenterStxgpueNXDZJXXTB1762-31-32 10:57:00 Test Item Value Reference Range Interpretation Comments BUN (test code = BUN) 19 7-22 N [facility] CenterFxznobtIUVQDXGEG2967-28-36 10:57:00 Test Item Value Reference Range Interpretation Comments Glucose Lvl (test code = Glucose Lvl) 114 70-99 H [facility] CenterEjwvtqjCUVBRYLKN9210-48-47 10:57:00 Test Item Value Reference Range Interpretation Comments Sodium Lvl (test code = Sodium Lvl) 139 135-145 N [facility] CenterVirdsjsEFKXZIARS4661-98-88 10:57:00 Test Item Value Reference Range Interpretation Comments Creatinine Lvl (test code = Creatinine 0.9 0.5-1.4 N Lvl) [facility] NortheastOkfgookDNGPKSDOTM1366-78-32 10:57:00 Test Item Value Reference Range Interpretation Comments Hct (test code = Hct) 26.1 36.0-48.0 L [facility] NortheastWhcxxbaBATMRSWFQQ7057-42-73 10:57:00 Test Item Value Reference Range Interpretation Comments WBC X 10x3 (test code = WBC X 10x3) 8.8 3.7-10.4 N [facility] NortheastGodhgnmVDGMDATOZM7169-81-60 10:57:00 Test Item Value Reference Range Interpretation Comments MCHC (test code = MCHC) 32.6 32.0-36.0 N [facility] NortheastJvvmldoYWDENKWINI3479-78-67 10:57:00 Test Item Value Reference Range Interpretation Comments RDW (test code = RDW) 14.5 11.5-14.5 N [facility] NortheastYcxnzkzVIIWKHDGQP2222-73-46 10:57:00 Test Item Value Reference Range Interpretation Comments MCH (test code = MCH) 29.8 pg 27.0-31.0 N [facility] NortheastOldxsdpUPMWUONSHP2239-12-77 10:57:00 Test Item Value Reference Range Interpretation Comments MCV (test code = MCV) 91.6 81.0-99.0 N [facility] NortheastFvzlxfaETRPHADIXE8050-97-34 10:57:00 Test Item Value Reference Range Interpretation Comments Hgb (test code = Hgb) 8.5 12.0-16.0 L [facility] NortheastFwvaycyAVCHTYFNKR3342-87-05 10:57:00 Test Item Value Reference Range Interpretation Comments RBC X 10x6 (test code = RBC X 10x6) 2.85 4.20-5.40 L [facility] NortheastKxupynxPFOKPEKVSS8379-72-48 10:57:00 Test Item Value Reference Range Interpretation Comments Platelet (test code = Platelet) 423 133-450 N [facility] NortheastOjbbumqVWSVQSSBAJ4789-56-46 10:57:00 Test Item Value Reference Range Interpretation Comments MPV (test code = MPV) 7.3 7.4-10.4 L [facility] NortheastJtfhqxbUUICQOYKBR3800-76-20 10:57:00 Test Item Value Reference Range Interpretation Comments Monocytes (test code = Monocytes) 8.5 2.0-12.0 N [facility] NortheastLygggizQZAZTBVHLN7417-60-02 10:57:00 Test Item Value Reference Range Interpretation Comments Eosinophils (test code = 4.9 See_Comment H [A utomated message] The Eosinophils) system which ge nerated this result tra nsmitted reference range : <=4.0. The reference r andreia was not used to int erpret this result as normal/abnormal . [facility] NortheastLmpeayaOYVWEIBNZZ8434-84-40 10:57:00 Test Item Value Reference Range Interpretation Comments Lymphocytes (test code = Lymphocytes) 29.9 20.0-40.0 N [facility] NortheastXqmaoluEXWSKQWVMV0160-53-65 10:57:00 Test Item Value Reference Range Interpretation Comments Eosinophils # (test code 0.4 See_Comment N [A utomated message] The = Eosinophils #) system [facility] h generated this result tra nsmitted reference range : <=0.5. The reference r andreia was not used to int erpret this result as normal/abnormal . [facility] NortheastBusnxqiJMGASTPXZG7011-47-82 10:57:00 Test Item Value Reference Range Interpretation Comments Basophils # (test code 0.1 See_Comment N [Aut omated message] The = Basophils #) system which generated this result tra nsmitted reference range : <=0.2. The reference r andreia was not used to int erpret this result as normal/abnormal . [facility] NortheastSjpywxqLQVIOGMUDH0570-62-06 10:57:00 Test Item Value Reference Range Interpretation Comments Basophils (test code = 1.1 See_Comment H [Aut omated message] The Basophils) system which ge nerated this result tra nsmitted reference range : <=1.0. The reference r andreia was not used to int erpret this result as normal/abnormal . [facility] NortheastNildxplLEKDWMXLQK7374-04-74 10:57:00 Test Item Value Reference Range Interpretation Comments Segs-Bands # (test code = Segs-Bands #) 4.9 1.5-8.1 N [facility] NortheastKgycgyeXGSGVYMENE1374-27-64 10:57:00 Test Item Value Reference Range Interpretation Comments Segs (test code = Segs) 55.6 45.0-75.0 N [facility] NortheastElcrzbxIJXIQQAFSY8357-49-83 10:57:00 Test Item Value Reference Range Interpretation Comments Monocytes # (test code 0.7 See_Comment N [Aut omated message] The = Monocytes #) system which generated this result tra nsmitted reference range : <=0.8. The reference r andreia was not used to int erpret this result as normal/abnormal . [facility] NortheastWrerwyfTUACAXPQIG2756-92-99 10:57:00 Test Item Value Reference Range Interpretation Comments Lymphocytes # (test code = Lymphocytes 2.6 1.0-5.5 N #) [facility] CenterCydhslyQNMBJRWRN4371-46-06 10:57:00 Test Item Value Reference Range Interpretation Comments AGAP (test code = AGAP) 12.6 10.0-20.0 N [facility] CenterEqgkhpbSYJJSORIE6449-35-22 10:57:00 Test Item Value Reference Range Interpretation Comments eGFR (test code = eGFR) 61 [facility] CenterIyvccyzGKMJHBDNC2976-00-13 10:57:00 Test Item Value Reference Range Interpretation Comments Calcium Lvl (test code = Calcium Lvl) 8.5 8.5-10.5 N [facility] CenterMdgyeqqMXLGOKQRR7412-71-43 10:57:00 Test Item Value Reference Range Interpretation Comments CO2 (test code = CO2) 28 24-32 N [facility] CenterYggchdaDMDRIQIVZ2389-49-26 10:57:00 Test Item Value Reference Range Interpretation Comments Chloride Lvl (test code = Chloride Lvl) 102 95-109 N [facility] CenterJefwycgZSIJXCJJX7208-83-26 10:57:00 Test Item Value Reference Range Interpretation Comments Potassium Lvl (test code = Potassium 3.6 3.5-5.1 N Lvl) [facility] CenterKqgdjooEGXCDXMJE4933-48-61 10:57:00 Test Item Value Reference Range Interpretation Comments BUN (test code = BUN) 19 7-22 N [facility] CenterXfhjdwqMXTWJDCOD2426-63-14 10:57:00 Test Item Value Reference Range Interpretation Comments Glucose Lvl (test code = Glucose Lvl) 114 70-99 H [facility] CenterUqahbiwJQHPUDGKD1291-09-65 10:57:00 Test Item Value Reference Range Interpretation Comments Sodium Lvl (test code = Sodium Lvl) 139 135-145 N [facility] CenterIayxrvnIPPXRDEVJ3143-36-38 10:57:00 Test Item Value Reference Range Interpretation Comments Creatinine Lvl (test code = Creatinine 0.9 0.5-1.4 N Lvl) [facility]WmspznqCKBNVFXIBO8937-58-95 10:57:00 Test Item Value Reference Range Interpretation Comments Hct (test code = Hct) 26.1 36.0-48.0 L [facility] NortheastQgfrshaJUHNZIIHNN4928-62-96 10:57:00 Test Item Value Reference Range Interpretation Comments WBC X 10x3 (test code = WBC X 10x3) 8.8 3.7-10.4 N [facility] NortheastLvvrfozWVSTTHMXLA0546-56-07 10:57:00 Test Item Value Reference Range Interpretation Comments MCHC (test code = MCHC) 32.6 32.0-36.0 N [facility] NortheastDgemtwxZSKRQPXKYY0978-29-94 10:57:00 Test Item Value Reference Range Interpretation Comments RDW (test code = RDW) 14.5 11.5-14.5 N [facility] NortheastRjpjmeePEDYRDKABN1866-01-64 10:57:00 Test Item Value Reference Range Interpretation Comments MCH (test code = MCH) 29.8 pg 27.0-31.0 N [facility] NortheastQkpdlldCQIDTTNCWV4864-61-94 10:57:00 Test Item Value Reference Range Interpretation Comments MCV (test code = MCV) 91.6 81.0-99.0 N [facility] NortheastZezqequQBHJRKVXPJ5505-16-11 10:57:00 Test Item Value Reference Range Interpretation Comments Hgb (test code = Hgb) 8.5 12.0-16.0 L [facility] NortheastGaispmgOHKXPQGXOV4436-35-82 10:57:00 Test Item Value Reference Range Interpretation Comments RBC X 10x6 (test code = RBC X 10x6) 2.85 4.20-5.40 L [facility] NortheastJczbckhABXNKJBQHW8811-18-38 10:57:00 Test Item Value Reference Range Interpretation Comments Platelet (test code = Platelet) 423 133-450 N [facility] NortheastBoaxaxqSZLYVDXIXT9246-10-87 10:57:00 Test Item Value Reference Range Interpretation Comments MPV (test code = MPV) 7.3 7.4-10.4 L [facility] NortheastHrlxpwqGRZMQERCJW8790-45-18 10:57:00 Test Item Value Reference Range Interpretation Comments Monocytes (test code = Monocytes) 8.5 2.0-12.0 N [facility] NortheastTmcwjepLVOUGITNGC9980-00-51 10:57:00 Test Item Value Reference Range Interpretation Comments Eosinophils (test code = 4.9 See_Comment H [A utomated message] The Eosinophils) system which ge nerated this result tra nsmitted reference range : <=4.0. The reference r andreia was not used to int erpret this result as normal/abnormal . [facility] NortheastRvppyarDECVUIEZYM1934 10:57:00 Test Item Value Reference Range Interpretation Comments Lymphocytes (test code = Lymphocytes) 29.9 20.0-40.0 N [facility] NortheastWglbqnbGXYMRUHEIP3722-82-77 10:57:00 Test Item Value Reference Range Interpretation Comments Eosinophils # (test code 0.4 See_Comment N [A utomated message] The = Eosinophils #) system [facility] h generated this result tra nsmitted reference range : <=0.5. The reference r andreia was not used to int erpret this result as normal/abnormal . [facility] NortheastLbkxwdaOYLLNHRZFK8935-83-42 10:57:00 Test Item Value Reference Range Interpretation Comments Basophils # (test code 0.1 See_Comment N [Aut omated message] The = Basophils #) system which generated this result tra nsmitted reference range : <=0.2. The reference r andreia was not used to int erpret this result as normal/abnormal . [facility] NortheastPwubegyMRNISABDNH6507-83-43 10:57:00 Test Item Value Reference Range Interpretation Comments Basophils (test code = 1.1 See_Comment H [Aut omated message] The Basophils) system which ge nerated this result tra nsmitted reference range : <=1.0. The reference r andreia was not used to int erpret this result as normal/abnormal . [facility] NortheastAkrorpjUQJMRYUNEI5161-68-27 10:57:00 Test Item Value Reference Range Interpretation Comments Segs-Bands # (test code = Segs-Bands #) 4.9 1.5-8.1 N [facility] NortheastLzuiiqvKDHLEEWHYF9090-29-78 10:57:00 Test Item Value Reference Range Interpretation Comments Segs (test code = Segs) 55.6 45.0-75.0 N [facility] NortheastWmrsjqcJYIVBAYKWX7893-90-91 10:57:00 Test Item Value Reference Range Interpretation Comments Monocytes # (test code 0.7 See_Comment N [Aut omated message] The = Monocytes #) system which generated this result tra nsmitted reference range : <=0.8. The reference r andreia was not used to int erpret this result as normal/abnormal . [facility] NortheastOliqejvTNZTLCXYXL0441-81-52 10:57:00 Test Item Value Reference Range Interpretation Comments Lymphocytes # (test code = Lymphocytes 2.6 1.0-5.5 N #) [facility] CenterHppkjkqVZKXBHTDL7568-38-52 10:57:00 Test Item Value Reference Range Interpretation Comments AGAP (test code = AGAP) 12.6 10.0-20.0 N [facility] CenterZccuvgpUFFWYPWYK7658-47-66 10:57:00 Test Item Value Reference Range Interpretation Comments eGFR (test code = eGFR) 61 [facility] CenterBygphkzJSKHZTMRW1803-82-18 10:57:00 Test Item Value Reference Range Interpretation Comments Calcium Lvl (test code = Calcium Lvl) 8.5 8.5-10.5 N [facility] CenterSgziezkBXKQUILHF4778-08-75 10:57:00 Test Item Value Reference Range Interpretation Comments CO2 (test code = CO2) 28 24-32 N [facility] CenterHksvlebLFSRVCUSU2333-36-89 10:57:00 Test Item Value Reference Range Interpretation Comments Chloride Lvl (test code = Chloride Lvl) 102 95-109 N [facility] CenterIkoiovfOXWVBVHVV8468-48-68 10:57:00 Test Item Value Reference Range Interpretation Comments Potassium Lvl (test code = Potassium 3.6 3.5-5.1 N Lvl) [facility] CenterCqowpmwDKNIFFMSH8838-13-11 10:57:00 Test Item Value Reference Range Interpretation Comments BUN (test code = BUN) 19 7-22 N [facility] CenterKowrjwqRVSFSDAQE6888-69-86 10:57:00 Test Item Value Reference Range Interpretation Comments Glucose Lvl (test code = Glucose Lvl) 114 70-99 H [facility] CenterQdcwjupZEQTSYIVP6596-12-86 10:57:00 Test Item Value Reference Range Interpretation Comments Sodium Lvl (test code = Sodium Lvl) 139 135-145 N [facility] CenterMpaeblkCZQBGGBBT7792-11-05 10:57:00 Test Item Value Reference Range Interpretation Comments Creatinine Lvl (test code = Creatinine 0.9 0.5-1.4 N Lvl) [facility] NortheastOldixddVLGJMTZWGW4258-42-27 10:57:00 Test Item Value Reference Range Interpretation Comments Hct (test code = Hct) 26.1 36.0-48.0 L [facility] NortheastIwnnhixTFQZLMWHAM1702-21-56 10:57:00 Test Item Value Reference Range Interpretation Comments WBC X 10x3 (test code = WBC X 10x3) 8.8 3.7-10.4 N [facility] NortheastOukhjucMMVXGDNZGV4113-97-20 10:57:00 Test Item Value Reference Range Interpretation Comments MCHC (test code = MCHC) 32.6 32.0-36.0 N [facility] NortheastTtbkdrfPYCGHUKRYG5930-37-74 10:57:00 Test Item Value Reference Range Interpretation Comments RDW (test code = RDW) 14.5 11.5-14.5 N [facility] NortheastKxkzcawPCZAWLJQKG4435-23-10 10:57:00 Test Item Value Reference Range Interpretation Comments MCH (test code = MCH) 29.8 pg 27.0-31.0 N [facility] NortheastAfewjbiOUBYWFNIQR7627-30-55 10:57:00 Test Item Value Reference Range Interpretation Comments MCV (test code = MCV) 91.6 81.0-99.0 N [facility] NortheastOsyldmqDGAZYENQWO6365-62-61 10:57:00 Test Item Value Reference Range Interpretation Comments Hgb (test code = Hgb) 8.5 12.0-16.0 L [facility] NortheastZffuimaEEAIRVIRFF0919-29-71 10:57:00 Test Item Value Reference Range Interpretation Comments RBC X 10x6 (test code = RBC X 10x6) 2.85 4.20-5.40 L [facility] NortheastOshonziCCFYNZKCXE8671-11-84 10:57:00 Test Item Value Reference Range Interpretation Comments Platelet (test code = Platelet) 423 133-450 N [facility] NortheastGpvogdsUKNHFHSXCF9316-75-15 10:57:00 Test Item Value Reference Range Interpretation Comments MPV (test code = MPV) 7.3 7.4-10.4 L [facility] NortheastCntlgqnNBAUPTPYPK2317-66-19 10:57:00 Test Item Value Reference Range Interpretation Comments Monocytes (test code = Monocytes) 8.5 2.0-12.0 N [facility] NortheastHiajlgsAMGOYYTTIT9790-29-99 10:57:00 Test Item Value Reference Range Interpretation Comments Eosinophils (test code = 4.9 See_Comment H [A utomated message] The Eosinophils) system which ge nerated this result tra nsmitted reference range : <=4.0. The reference r andreia was not used to int erpret this result as normal/abnormal . [facility] NortheastMbvnrxvVDDAYAXQPG8060-28-79 10:57:00 Test Item Value Reference Range Interpretation Comments Lymphocytes (test code = Lymphocytes) 29.9 20.0-40.0 N [facility] NortheastYpkdawkWZNHDHHUSJ3658-48-18 10:57:00 Test Item Value Reference Range Interpretation Comments Eosinophils # (test code 0.4 See_Comment N [A utomated message] The = Eosinophils #) system [facility] h generated this result tra nsmitted reference range : <=0.5. The reference r andreia was not used to int erpret this result as normal/abnormal . [facility] NortheastZvlpuulKNDFQIJYGI8014-76-09 10:57:00 Test Item Value Reference Range Interpretation Comments Basophils # (test code 0.1 See_Comment N [Aut omated message] The = Basophils #) system which generated this result tra nsmitted reference range : <=0.2. The reference r andreia was not used to int erpret this result as normal/abnormal . [facility] NortheastBpnnlsnLMTMZVXXNK9721-22-96 10:57:00 Test Item Value Reference Range Interpretation Comments Basophils (test code = 1.1 See_Comment H [Aut omated message] The Basophils) system which ge nerated this result tra nsmitted reference range : <=1.0. The reference r andreia was not used to int erpret this result as normal/abnormal . [facility] NortheastVdlioemMSJMARDPUN5211-05-16 10:57:00 Test Item Value Reference Range Interpretation Comments Segs-Bands # (test code = Segs-Bands #) 4.9 1.5-8.1 N [facility] NortheastKbfbclsMLQFIOKFSA2839-65-83 10:57:00 Test Item Value Reference Range Interpretation Comments Segs (test code = Segs) 55.6 45.0-75.0 N [facility] NortheastOfrmqccPVKPWOPFRP1048-58-74 10:57:00 Test Item Value Reference Range Interpretation Comments Monocytes # (test code 0.7 See_Comment N [Aut omated message] The = Monocytes #) system which generated this result tra nsmitted reference range : <=0.8. The reference r andreia was not used to int erpret this result as normal/abnormal . [facility] NortheastEjwculjTAVQLRCJEE8066-81-79 10:57:00 Test Item Value Reference Range Interpretation Comments Lymphocytes # (test code = Lymphocytes 2.6 1.0-5.5 N #) [facility] CenterIwexcimAGDVDCSTR7246-00-85 10:57:00 Test Item Value Reference Range Interpretation Comments AGAP (test code = AGAP) 12.6 10.0-20.0 N [facility] CenterYhiggmhSIXLHSUZQ7020-67-19 10:57:00 Test Item Value Reference Range Interpretation Comments eGFR (test code = eGFR) 61 [facility] CenterPttwtwiLKVFEOBVY4736-15-10 10:57:00 Test Item Value Reference Range Interpretation Comments Calcium Lvl (test code = Calcium Lvl) 8.5 8.5-10.5 N [facility] CenterFyxfalpOOFCPZPFH8949-11-89 10:57:00 Test Item Value Reference Range Interpretation Comments CO2 (test code = CO2) 28 24-32 N [facility] CenterSisdxrnFSUIWLRLN1877-79-01 10:57:00 Test Item Value Reference Range Interpretation Comments Chloride Lvl (test code = Chloride Lvl) 102 95-109 N [facility] CenterFytvpipFGBNMTTVS1913-03-98 10:57:00 Test Item Value Reference Range Interpretation Comments Potassium Lvl (test code = Potassium 3.6 3.5-5.1 N Lvl) [facility] CenterHlxhztzSASCRJRJM6910-25-43 10:57:00 Test Item Value Reference Range Interpretation Comments BUN (test code = BUN) 19 7-22 N [facility] CenterXundwhoPNTQXUDZZ1201-24-13 10:57:00 Test Item Value Reference Range Interpretation Comments Glucose Lvl (test code = Glucose Lvl) 114 70-99 H [facility] CenterGanoptzHLXFATDOB1993-39-68 10:57:00 Test Item Value Reference Range Interpretation Comments Sodium Lvl (test code = Sodium Lvl) 139 135-145 N [facility] CenterLeiawolYKOUTTWBK3443-97-23 10:57:00 Test Item Value Reference Range Interpretation Comments Creatinine Lvl (test code = Creatinine 0.9 0.5-1.4 N Lvl) [facility] NortheastLoqfrpyWOTIAVLXIV6060-69-49 10:57:00 Test Item Value Reference Range Interpretation Comments Hct (test code = Hct) 26.1 36.0-48.0 L [facility] NortheastRgcclgkOTOEQUJUMK9274-92-93 10:57:00 Test Item Value Reference Range Interpretation Comments WBC X 10x3 (test code = WBC X 10x3) 8.8 3.7-10.4 N [facility] NortheastWpjrjxaOEPYUPFFXA5228-37-31 10:57:00 Test Item Value Reference Range Interpretation Comments MCHC (test code = MCHC) 32.6 32.0-36.0 N [facility] NortheastXsbmsvlNYAIDCHRVU0673-64-55 10:57:00 Test Item Value Reference Range Interpretation Comments RDW (test code = RDW) 14.5 11.5-14.5 N [facility] NortheastYtlbaeuBQXZECECSU0030-40-13 10:57:00 Test Item Value Reference Range Interpretation Comments MCH (test code = MCH) 29.8 pg 27.0-31.0 N [facility] NortheastYubpyfeAGVDNPIADH3363-89-51 10:57:00 Test Item Value Reference Range Interpretation Comments MCV (test code = MCV) 91.6 81.0-99.0 [facility]SnbwbjaIHUYBSNKOK5523-67-71 10:57:00 Test Item Value Reference Range Interpretation Comments Hgb (test code = Hgb) 8.5 12.0-16.0 L [facility]FnvywcxLFNZLUHDOL0171-60-43 10:57:00 Test Item Value Reference Range Interpretation Comments RBC X 10x6 (test code = RBC X 10x6) 2.85 4.20-5.40 L [facility] NortheastCkoeonlDYHANERWDH5885-56-69 10:57:00 Test Item Value Reference Range Interpretation Comments Platelet (test code = Platelet) 423 133-450 N [facility] NortheastGfmbodfLMHPSKIGKW9516-69-28 10:57:00 Test Item Value Reference Range Interpretation Comments MPV (test code = MPV) 7.3 7.4-10.4 L [facility] NortheastDvzmgqzSJDSVKGKNO3530-10-26 10:57:00 Test Item Value Reference Range Interpretation Comments Monocytes (test code = Monocytes) 8.5 2.0-12.0 N [facility] NortheastUxcdhgtBGQIHHJHTW2199-78-91 10:57:00 Test Item Value Reference Range Interpretation Comments Eosinophils (test code = 4.9 See_Comment H [A utomated message] The Eosinophils) system which ge nerated this result tra nsmitted reference range : <=4.0. The reference r andreia was not used to int erpret this result as normal/abnormal . [facility] NortheastNrvmsrlWIGHVTKJDJ3019-29-42 10:57:00 Test Item Value Reference Range Interpretation Comments Lymphocytes (test code = Lymphocytes) 29.9 20.0-40.0 N [facility] NortheastAhkcftbJCMWUCYSWL3441-93-42 10:57:00 Test Item Value Reference Range Interpretation Comments Eosinophils # (test code 0.4 See_Comment N [A utomated message] The = Eosinophils #) system [facility] generated this result tra nsmitted reference range : <=0.5. The reference r andreia was not used to int erpret this result as normal/abnormal . [facility] NortheastJdllsmwJBXYGZYVOY5038-39-20 10:57:00 Test Item Value Reference Range Interpretation Comments Basophils # (test code 0.1 See_Comment N [Aut omated message] The = Basophils #) system which generated this result tra nsmitted reference range : <=0.2. The reference r andreia was not used to int erpret this result as normal/abnormal . [facility] NortheastDnwzujcPZZRYBWAPB8692-75-50 10:57:00 Test Item Value Reference Range Interpretation Comments Basophils (test code = 1.1 See_Comment H [Aut omated message] The Basophils) system which ge nerated this result tra nsmitted reference range : <=1.0. The reference r andreia was not used to int erpret this result as normal/abnormal . [facility] NortheastPitpckrHGQMQQIGWJ9700-63-19 10:57:00 Test Item Value Reference Range Interpretation Comments Segs-Bands # (test code = Segs-Bands #) 4.9 1.5-8.1 N [facility] NortheastNrgpkaqIVLZTVWJFP3829-94-90 10:57:00 Test Item Value Reference Range Interpretation Comments Segs (test code = Segs) 55.6 45.0-75.0 N [facility] NortheastPoouofpLEQMDWSDKA5988-69-44 10:57:00 Test Item Value Reference Range Interpretation Comments Monocytes # (test code 0.7 See_Comment N [Aut omated message] The = Monocytes #) system which generated this result tra nsmitted reference range : <=0.8. The reference r andreia was not used to int erpret this result as normal/abnormal . [facility] NortheastRblkaksLEEGAWKQZQ2166-51-37 10:57:00 Test Item Value Reference Range Interpretation Comments Lymphocytes # (test code = Lymphocytes 2.6 1.0-5.5 N #) [facility]MpxouuoNVYPEZSRL3363-19-43 10:57:00 Test Item Value Reference Range Interpretation Comments AGAP (test code = AGAP) 12.6 10.0-20.0 N [facility] CenterWiovqbdWQVJRDOTK5390-80-50 10:57:00 Test Item Value Reference Range Interpretation Comments eGFR (test code = eGFR) 61 [facility] CenterQdilypzWTGNTEPWB5886-93-75 10:57:00 Test Item Value Reference Range Interpretation Comments Calcium Lvl (test code = Calcium Lvl) 8.5 8.5-10.5 N [facility] CenterOjantmwMBCWOICIG9886-89-02 10:57:00 Test Item Value Reference Range Interpretation Comments CO2 (test code = CO2) 28 24-32 N [facility] CenterWcvunlvQDIAKBLEU4698-39-04 10:57:00 Test Item Value Reference Range Interpretation Comments Chloride Lvl (test code = Chloride Lvl) 102 95-109 N [facility] CenterHpnmhajUDMQIFELV8115-17-14 10:57:00 Test Item Value Reference Range Interpretation Comments Potassium Lvl (test code = Potassium 3.6 3.5-5.1 N Lvl) [facility] CenterMixhqkfEEHPXIKFM2983-40-42 10:57:00 Test Item Value Reference Range Interpretation Comments BUN (test code = BUN) 19 7-22 N [facility] CenterHvbsgflHZFSUIYKZ0263-78-87 10:57:00 Test Item Value Reference Range Interpretation Comments Glucose Lvl (test code = Glucose Lvl) 114 70-99 H [facility] CenterJjlsjicHHLBHZGCX2712-39-67 10:57:00 Test Item Value Reference Range Interpretation Comments Sodium Lvl (test code = Sodium Lvl) 139 135-145 N [facility] CenterJgftqziKCFEYLMGD2739-92-80 10:57:00 Test Item Value Reference Range Interpretation Comments Creatinine Lvl (test code = Creatinine 0.9 0.5-1.4 N Lvl) [facility]GbowayxCLNELGDLPC9098-58-26 10:57:00 Test Item Value Reference Range Interpretation Comments Hct (test code = Hct) 26.1 36.0-48.0 L [facility] NortheastPbnqbicVDVAHAHAEF2772-73-56 10:57:00 Test Item Value Reference Range Interpretation Comments WBC X 10x3 (test code = WBC X 10x3) 8.8 3.7-10.4 N [facility] NortheastJulfvzyZSEGHCFDVH1459-85-51 10:57:00 Test Item Value Reference Range Interpretation Comments MCHC (test code = MCHC) 32.6 32.0-36.0 N [facility]XeomnmsLFSQCYSLVP8183-08-45 10:57:00 Test Item Value Reference Range Interpretation Comments RDW (test code = RDW) 14.5 11.5-14.5 N [facility] NortheastOijyejzORHALPFEXI9309-11-32 10:57:00 Test Item Value Reference Range Interpretation Comments MCH (test code = MCH) 29.8 pg 27.0-31.0 N [facility] NortheastRmzdhmdJKTZLEALDH4715-07-10 10:57:00 Test Item Value Reference Range Interpretation Comments MCV (test code = MCV) 91.6 81.0-99.0 N [facility] NortheastKfkpiujUNRABZSZBW5314-18-26 10:57:00 Test Item Value Reference Range Interpretation Comments Hgb (test code = Hgb) 8.5 12.0-16.0 L [facility] NortheastCkwfeqsKPPLUTIXZT1963-29-53 10:57:00 Test Item Value Reference Range Interpretation Comments RBC X 10x6 (test code = RBC X 10x6) 2.85 4.20-5.40 L [facility] NortheastNzjzsdoCFWXCXTJJZ0238-53-12 10:57:00 Test Item Value Reference Range Interpretation Comments Platelet (test code = Platelet) 423 133-450 N [facility] NortheastPyclhknFRZKVBYTPS6373-75-72 10:57:00 Test Item Value Reference Range Interpretation Comments MPV (test code = MPV) 7.3 7.4-10.4 L [facility] NortheastTmcxqzySNLBCLLSRQ0427-77-40 10:57:00 Test Item Value Reference Range Interpretation Comments Monocytes (test code = Monocytes) 8.5 2.0-12.0 N [facility] NortheastDvushohEIFEPKBAAS2781-70-36 10:57:00 Test Item Value Reference Range Interpretation Comments Eosinophils (test code = 4.9 See_Comment H [A utomated message] The Eosinophils) system which ge nerated this result tra nsmitted reference range : <=4.0. The reference r andreia was not used to int erpret this result as normal/abnormal . [facility] NortheastIuwupvxNFNKJTBDKH5617-89-53 10:57:00 Test Item Value Reference Range Interpretation Comments Lymphocytes (test code = Lymphocytes) 29.9 20.0-40.0 N [facility] NortheastUcxgfvdUNGNHLGZBM5037-83-50 10:57:00 Test Item Value Reference Range Interpretation Comments Eosinophils # (test code 0.4 See_Comment N [A utomated message] The = Eosinophils #) system [facility] h generated this result tra nsmitted reference range : <=0.5. The reference r andreia was not used to int erpret this result as normal/abnormal . [facility] NortheastKbqhuerGLLBKOBNXC5213-92-51 10:57:00 Test Item Value Reference Range Interpretation Comments Basophils # (test code 0.1 See_Comment N [Aut omated message] The = Basophils #) system which generated this result tra nsmitted reference range : <=0.2. The reference r andreia was not used to int erpret this result as normal/abnormal . [facility] NortheastRffloquJNDZTVLBKW7635-13-11 10:57:00 Test Item Value Reference Range Interpretation Comments Basophils (test code = 1.1 See_Comment H [Aut omated message] The Basophils) system which ge nerated this result tra nsmitted reference range : <=1.0. The reference r andreia was not used to int erpret this result as normal/abnormal . [facility] NortheastXacvdqeOYLPAZQHAH7130-46-81 10:57:00 Test Item Value Reference Range Interpretation Comments Segs-Bands # (test code = Segs-Bands #) 4.9 1.5-8.1 N [facility] NortheastHpsnmtwLNSAIADBZS5713-95-00 10:57:00 Test Item Value Reference Range Interpretation Comments Segs (test code = Segs) 55.6 45.0-75.0 N [facility] NortheastSzhobkkRKEKVOHMUE3443-22-54 10:57:00 Test Item Value Reference Range Interpretation Comments Monocytes # (test code 0.7 See_Comment N [Aut omated message] The = Monocytes #) system which generated this result tra nsmitted reference range : <=0.8. The reference r andreia was not used to int erpret this result as normal/abnormal . [facility] NortheastBvivibjOYWAOQLKSV3064-75-46 10:57:00 Test Item Value Reference Range Interpretation Comments Lymphocytes # (test code = Lymphocytes 2.6 1.0-5.5 N #) [facility] CenterQftnzapIBZKUVEFF9265-75-86 10:57:00 Test Item Value Reference Range Interpretation Comments AGAP (test code = AGAP) 12.6 10.0-20.0 N [facility] CenterWwhnktrFKKPYWNAI1359-97-77 10:57:00 Test Item Value Reference Range Interpretation Comments eGFR (test code = eGFR) 61 [facility] CenterGdivxovGVUZYRUAJ3223-39-55 10:57:00 Test Item Value Reference Range Interpretation Comments Calcium Lvl (test code = Calcium Lvl) 8.5 8.5-10.5 N [facility] CenterGtcbffvRXJGPIIWY0595-32-06 10:57:00 Test Item Value Reference Range Interpretation Comments CO2 (test code = CO2) 28 24-32 N [facility] CenterGbpbhyzVMSKQZARP7631-32-78 10:57:00 Test Item Value Reference Range Interpretation Comments Chloride Lvl (test code = Chloride Lvl) 102 95-109 N [facility] CenterBtziuuzORKGOABPG0875-66-69 10:57:00 Test Item Value Reference Range Interpretation Comments Potassium Lvl (test code = Potassium 3.6 3.5-5.1 N Lvl) [facility] CenterTvswymfMYGQURGGT8033-56-91 10:57:00 Test Item Value Reference Range Interpretation Comments BUN (test code = BUN) 19 7-22 N [facility] CenterPquozohDOXQWZMND1553-20-85 10:57:00 Test Item Value Reference Range Interpretation Comments Glucose Lvl (test code = Glucose Lvl) 114 70-99 H [facility] CenterOrwfprkGFMUKVXGH4139-07-85 10:57:00 Test Item Value Reference Range Interpretation Comments Sodium Lvl (test code = Sodium Lvl) 139 135-145 N [facility] CenterUwjyygvCIJJJACUI8830-75-03 10:57:00 Test Item Value Reference Range Interpretation Comments Creatinine Lvl (test code = Creatinine 0.9 0.5-1.4 N Lvl) [facility] NortheastKdiebcaSBQSEOYSYM4736-05-89 10:57:00 Test Item Value Reference Range Interpretation Comments Hct (test code = Hct) 26.1 36.0-48.0 L [facility] NortheastLlozkbiVOBELHRWPT9877-50-35 10:57:00 Test Item Value Reference Range Interpretation Comments WBC X 10x3 (test code = WBC X 10x3) 8.8 3.7-10.4 N [facility] NortheastQilidxyFQJATLRMSL4785-73-66 10:57:00 Test Item Value Reference Range Interpretation Comments MCHC (test code = MCHC) 32.6 32.0-36.0 N [facility]KfttkamYQQEEVHQQD9043-79-38 10:57:00 Test Item Value Reference Range Interpretation Comments RDW (test code = RDW) 14.5 11.5-14.5 N [facility] NortheastYwomkiyBPJFKJDWDF1341-73-48 10:57:00 Test Item Value Reference Range Interpretation Comments MCH (test code = MCH) 29.8 pg 27.0-31.0 N [facility] NortheastAlgtdeuVPCWXYYNYH6453-72-28 10:57:00 Test Item Value Reference Range Interpretation Comments MCV (test code = MCV) 91.6 81.0-99.0 N [facility] NortheastTipwvdcRSGWKVEIPG8182-48-96 10:57:00 Test Item Value Reference Range Interpretation Comments Hgb (test code = Hgb) 8.5 12.0-16.0 L [facility] NortheastWdhymwnZKNOMAOQZO1249-58-20 10:57:00 Test Item Value Reference Range Interpretation Comments RBC X 10x6 (test code = RBC X 10x6) 2.85 4.20-5.40 L [facility] NortheastDxnnxciRTEUBCMILP5232-58-08 10:57:00 Test Item Value Reference Range Interpretation Comments Platelet (test code = Platelet) 423 133-450 N [facility] NortheastDjftqgzAMCDLXTGKH5897-55-26 10:57:00 Test Item Value Reference Range Interpretation Comments MPV (test code = MPV) 7.3 7.4-10.4 L [facility] NortheastOovdvuiYQMQXPYTQW6979-56-01 10:57:00 Test Item Value Reference Range Interpretation Comments Monocytes (test code = Monocytes) 8.5 2.0-12.0 N [facility] NortheastPogjewrXVZRKOINGM0560-23-57 10:57:00 Test Item Value Reference Range Interpretation Comments Eosinophils (test code = 4.9 See_Comment H [A utomated message] The Eosinophils) system which ge nerated this result tra nsmitted reference range : <=4.0. The reference r andreia was not used to int erpret this result as normal/abnormal . [facility] NortheastCnmclpqDSTNCGTMTG9961-78-25 10:57:00 Test Item Value Reference Range Interpretation Comments Lymphocytes (test code = Lymphocytes) 29.9 20.0-40.0 N [facility] NortheastZhmlvjtPBYILMUEQE6903-06-37 10:57:00 Test Item Value Reference Range Interpretation Comments Eosinophils # (test code 0.4 See_Comment N [A utomated message] The = Eosinophils #) system [facility] h generated this result tra nsmitted reference range : <=0.5. The reference r andreia was not used to int erpret this result as normal/abnormal . [facility] NortheastNndbprsOGQHKBHABM9757-59-49 10:57:00 Test Item Value Reference Range Interpretation Comments Basophils # (test code 0.1 See_Comment N [Aut omated message] The = Basophils #) system which generated this result tra nsmitted reference range : <=0.2. The reference r andreia was not used to int erpret this result as normal/abnormal . [facility] NortheastYjzmbfeTKDQNZYSKW5519-15-72 10:57:00 Test Item Value Reference Range Interpretation Comments Basophils (test code = 1.1 See_Comment H [Aut omated message] The Basophils) system which ge nerated this result tra nsmitted reference range : <=1.0. The reference r andreia was not used to int erpret this result as normal/abnormal . [facility] NortheastCmswdfsHGWIEQJUCL9014-31-12 10:57:00 Test Item Value Reference Range Interpretation Comments Segs-Bands # (test code = Segs-Bands #) 4.9 1.5-8.1 N [facility] NortheastIkfjlnkUVTETPROCS8997-63-93 10:57:00 Test Item Value Reference Range Interpretation Comments Segs (test code = Segs) 55.6 45.0-75.0 N [facility] NortheastMqampnqVIOYYJPEIS7762-75-66 10:57:00 Test Item Value Reference Range Interpretation Comments Monocytes # (test code 0.7 See_Comment N [Aut omated message] The = Monocytes #) system which generated this result tra nsmitted reference range : <=0.8. The reference r andreia was not used to int erpret this result as normal/abnormal . [facility] NortheastVygqxkcYCEBXGSGCC3018-53-27 10:57:00 Test Item Value Reference Range Interpretation Comments Lymphocytes # (test code = Lymphocytes 2.6 1.0-5.5 N #) [facility] CenterHazczxwAEHORHFAE5328-78-59 10:57:00 Test Item Value Reference Range Interpretation Comments AGAP (test code = AGAP) 12.6 10.0-20.0 N [facility] CenterPdwpxrjEOBIAGPQV2348-31-03 10:57:00 Test Item Value Reference Range Interpretation Comments eGFR (test code = eGFR) 61 [facility] CenterJhnztbkKVHUNSHDH5439-43-83 10:57:00 Test Item Value Reference Range Interpretation Comments Calcium Lvl (test code = Calcium Lvl) 8.5 8.5-10.5 N [facility] CenterKgzvlkwXZDVRPQWP8827-92-14 10:57:00 Test Item Value Reference Range Interpretation Comments CO2 (test code = CO2) 28 24-32 N [facility] CenterYvyfybuYZJDTJAWR8053-14-95 10:57:00 Test Item Value Reference Range Interpretation Comments Chloride Lvl (test code = Chloride Lvl) 102 95-109 N [facility] CenterLsawkijVGKHHTBQK8479-12-85 10:57:00 Test Item Value Reference Range Interpretation Comments Potassium Lvl (test code = Potassium 3.6 3.5-5.1 N Lvl) [facility] CenterXsulgzzYJATDPJFT6939-97-03 10:57:00 Test Item Value Reference Range Interpretation Comments BUN (test code = BUN) 19 7-22 N [facility] CenterTknzyczCFLUTRJLB7622-29-29 10:57:00 Test Item Value Reference Range Interpretation Comments Glucose Lvl (test code = Glucose Lvl) 114 70-99 H [facility] CenterLfwoxymWVWBLQBHG0493-90-90 10:57:00 Test Item Value Reference Range Interpretation Comments Sodium Lvl (test code = Sodium Lvl) 139 135-145 N [facility] CenterUyruqbuJLDRABASF5207-07-37 10:57:00 Test Item Value Reference Range Interpretation Comments Creatinine Lvl (test code = Creatinine 0.9 0.5-1.4 N Lvl) [facility] NortheastFddgoxxDWRYCTXGHJ5708-39-55 10:57:00 Test Item Value Reference Range Interpretation Comments Hct (test code = Hct) 26.1 36.0-48.0 L [facility] NortheastVpshqdhFNPBRXNVYY0747-87-88 10:57:00 Test Item Value Reference Range Interpretation Comments WBC X 10x3 (test code = WBC X 10x3) 8.8 3.7-10.4 N [facility] NortheastZcoblrxAAGYKDOXQS8741-19-33 10:57:00 Test Item Value Reference Range Interpretation Comments MCHC (test code = MCHC) 32.6 32.0-36.0 N [facility] NortheastMyekqkqGUKEKXNLPI8650-12-51 10:57:00 Test Item Value Reference Range Interpretation Comments RDW (test code = RDW) 14.5 11.5-14.5 N [facility] NortheastNmfoxggIOANMCDOCO2144-79-17 10:57:00 Test Item Value Reference Range Interpretation Comments MCH (test code = MCH) 29.8 pg 27.0-31.0 N [facility] NortheastNearaigSSTZTKMLYL3698-40-01 10:57:00 Test Item Value Reference Range Interpretation Comments MCV (test code = MCV) 91.6 81.0-99.0 N [facility] NortheastLffaqtoZGXXBKFFRK1743-95-62 10:57:00 Test Item Value Reference Range Interpretation Comments Hgb (test code = Hgb) 8.5 12.0-16.0 L [facility] NortheastBvkycknOCFWVWBPIZ4058-48-78 10:57:00 Test Item Value Reference Range Interpretation Comments RBC X 10x6 (test code = RBC X 10x6) 2.85 4.20-5.40 L [facility] NortheastCskbcstUACKPGYEZM4003-17-88 10:57:00 Test Item Value Reference Range Interpretation Comments Platelet (test code = Platelet) 423 133-450 N [facility] NortheastBokduvcLWQBPCMRDK4789-53-26 10:57:00 Test Item Value Reference Range Interpretation Comments MPV (test code = MPV) 7.3 7.4-10.4 L [facility] NortheastXgunzqkPOZRJPWOMG0643-71-09 10:57:00 Test Item Value Reference Range Interpretation Comments Monocytes (test code = Monocytes) 8.5 2.0-12.0 N [facility] NortheastQzuxikqVFZZQVFLOH3348-81-61 10:57:00 Test Item Value Reference Range Interpretation Comments Eosinophils (test code = 4.9 See_Comment H [A utomated message] The Eosinophils) system which ge nerated this result tra nsmitted reference range : <=4.0. The reference r andreia was not used to int erpret this result as normal/abnormal . [facility] NortheastJcsvbnnCWLAETIWCC5899-86-79 10:57:00 Test Item Value Reference Range Interpretation Comments Lymphocytes (test code = Lymphocytes) 29.9 20.0-40.0 N [facility] NortheastOejpiojUBTJCEZUZC6343-06-64 10:57:00 Test Item Value Reference Range Interpretation Comments Eosinophils # (test code 0.4 See_Comment N [A utomated message] The = Eosinophils #) system whic h generated this result tra nsmitted reference range : <=0.5. The reference r andreia was not used to int erpret this result as normal/abnormal . [facility] NortheastDbwojliXWLDTDNSML6208-03-90 10:57:00 Test Item Value Reference Range Interpretation Comments Basophils # (test code 0.1 See_Comment N [Aut omated message] The = Basophils #) system which generated this result tra nsmitted reference range : <=0.2. The reference r andreia was not used to int erpret this result as normal/abnormal . [facility] NortheastAsoafhaDEQCKZYCOC2032-61-70 10:57:00 Test Item Value Reference Range Interpretation Comments Basophils (test code = 1.1 See_Comment H [Aut omated message] The Basophils) system which ge nerated this result tra nsmitted reference range : <=1.0. The reference r andreia was not used to int erpret this result as normal/abnormal . [facility] NortheastMxghpqmZNCYITGDES1375-26-65 10:57:00 Test Item Value Reference Range Interpretation Comments Segs-Bands # (test code = Segs-Bands #) 4.9 1.5-8.1 N [facility] NortheastZybfmlgXJIEOUIPJN6468-25-06 10:57:00 Test Item Value Reference Range Interpretation Comments Segs (test code = Segs) 55.6 45.0-75.0 N [facility] NortheastUcniddyKXZYZDXIMQ2709-27-15 10:57:00 Test Item Value Reference Range Interpretation Comments Monocytes # (test code 0.7 See_Comment N [Aut omated message] The = Monocytes #) system which generated this result tra nsmitted reference range : <=0.8. The reference r andreia was not used to int erpret this result as normal/abnormal . [facility] NortheastQykkuecMSZUAIIRBL3320-82-21 10:57:00 Test Item Value Reference Range Interpretation Comments Lymphocytes # (test code = Lymphocytes 2.6 1.0-5.5 N #) [facility] CenterAsebyfcUUMXTPOCI3300-46-21 07:33:00 Test Item Value Reference Range Interpretation Comments eGFR (test code = eGFR) 48 [facility] CenterIwzhgtqLEDQBOMTF5803-54-12 07:33:00 Test Item Value Reference Range Interpretation Comments Chloride Lvl (test code = Chloride Lvl) 97 95-109 N [facility] CenterRazdcqfBWZVAVIAR0024-06-49 07:33:00 Test Item Value Reference Range Interpretation Comments Potassium Lvl (test code = Potassium 3.6 3.5-5.1 N Lvl) [facility] CenterXnirttwJURKHMFNL3697-23-28 07:33:00 Test Item Value Reference Range Interpretation Comments CO2 (test code = CO2) 27 24-32 N [facility] CenterApsnapsLRKMRYVSG1374-90-08 07:33:00 Test Item Value Reference Range Interpretation Comments Calcium Lvl (test code = Calcium Lvl) 8.1 8.5-10.5 L [facility] CenterOjllyshTBACXMNVN6768-32-39 07:33:00 Test Item Value Reference Range Interpretation Comments Glucose Lvl (test code = Glucose Lvl) 130 70-99 H [facility] CenterUaioveiCMJVLXIWP9315-77-14 07:33:00 Test Item Value Reference Range Interpretation Comments BUN (test code = BUN) 22 7-22 N [facility] CenterMtosbahPGCHZUFRJ0689-10-00 07:33:00 Test Item Value Reference Range Interpretation Comments Sodium Lvl (test code = Sodium Lvl) 136 135-145 N [facility] CenterTzidsahRQMYFGCKB2732-05-00 07:33:00 Test Item Value Reference Range Interpretation Comments Creatinine Lvl (test code = Creatinine 1.1 0.5-1.4 N Lvl) [facility] CenterVuijljpURRQDSASA4511-46-49 07:33:00 Test Item Value Reference Range Interpretation Comments AGAP (test code = AGAP) 15.6 10.0-20.0 N [facility] NortheastWuindlbVKNOQKDFXJ6028-76-95 07:33:00 Test Item Value Reference Range Interpretation Comments Basophils # (test code = Basophils #) 0.1 <=0.2 N [facility] NortheastGgbkzypAAGGLDVPTG7830-01-32 07:33:00 Test Item Value Reference Range Interpretation Comments Eosinophils # (test code = Eosinophils 0.3 <=0.5 N #) [facility] NortheastXxvuluyXFFUZVMESN1299-54-71 07:33:00 Test Item Value Reference Range Interpretation Comments Monocytes # (test code = Monocytes #) 0.9 <=0.8 H [facility] NortheastDysyvylGNGYVTQASQ3933-25-94 07:33:00 Test Item Value Reference Range Interpretation Comments Monocytes (test code = Monocytes) 10.3 2.0-12.0 N [facility] NortheastLuvliihUSUSTOPBLX2025-99-93 07:33:00 Test Item Value Reference Range Interpretation Comments Lymphocytes (test code = Lymphocytes) 24.6 20.0-40.0 N [facility] NortheastIdlawpqZCPMPDJFPA1260-37-22 07:33:00 Test Item Value Reference Range Interpretation Comments Segs (test code = Segs) 61.0 45.0-75.0 N [facility] NortheastWllvwyxUZTCLQYGWA1324-77-06 07:33:00 Test Item Value Reference Range Interpretation Comments Lymphocytes # (test code = Lymphocytes 2.1 1.0-5.5 N #) [facility] [facility]antlmZEXVLGUIXG6934-89-74 07:33:00 Test Item Value Reference Range Interpretation Comments Basophils (test code = Basophils) 1.0 <=1.0 [facility]QhxsjmlWPVUCWTVAD6308-01-83 07:33:00 Test Item Value Reference Range Interpretation Comments Eosinophils (test code = Eosinophils) 3.1 <=4.0 N [facility]AdekgliYPLSPKWUMY4854-72-35 07:33:00 Test Item Value Reference Range Interpretation Comments Segs-Bands # (test code = Segs-Bands #) 5.1 1.5-8.1 N [facility]QmsghkoIVZFENORAY7723-35-70 07:33:00 Test Item Value Reference Range Interpretation Comments MPV (test code = MPV) 7.1 7.4-10.4 L [facility] NortheastPrhxrntXYSTKSZZGB2781-05-85 07:33:00 Test Item Value Reference Range Interpretation Comments Platelet (test code = Platelet) 285 133-450 N [facility] NortheastTcytdvhYDBBRYGCKG1936-49-69 07:33:00 Test Item Value Reference Range Interpretation Comments RDW (test code = RDW) 14.1 11.5-14.5 N [facility] NortheastDwtjzwjDMPGVCRDPI6371-70-29 07:33:00 Test Item Value Reference Range Interpretation Comments Hgb (test code = Hgb) 8.1 12.0-16.0 L [facility] NortheastClgrmqiANOQSBYWCV7556-90-46 07:33:00 Test Item Value Reference Range Interpretation Comments RBC X 10x6 (test code = RBC X 10x6) 2.65 4.20-5.40 L [facility]QwqozvwHYHUMBMOTZ0561-20-30 07:33:00 Test Item Value Reference Range Interpretation Comments WBC X 10x3 (test code = WBC X 10x3) 8.4 3.7-10.4 N [facility]QwvdhqvUCNRCKQPMA4689-79-30 07:33:00 Test Item Value Reference Range Interpretation Comments MCH (test code = MCH) 30.6 pg 27.0-31.0 N [facility] NortheastWwcpsptSDJNXWJEWC4530-77-31 07:33:00 Test Item Value Reference Range Interpretation Comments Hct (test code = Hct) 24.2 36.0-48.0 L [facility] NortheastBesxidoPAHJMGRIWJ4251-76-66 07:33:00 Test Item Value Reference Range Interpretation Comments MCHC (test code = MCHC) 33.4 32.0-36.0 N [facility]HbntpdnTRBUMOVUCL4447-72-54 07:33:00 Test Item Value Reference Range Interpretation Comments MCV (test code = MCV) 91.5 81.0-99.0 N [facility]SreukrgSOAHNIHWN0996-89-54 07:33:00 Test Item Value Reference Range Interpretation Comments eGFR (test code = eGFR) 48 [facility] CenterXggfzauPYYLTBKVA6580-88-29 07:33:00 Test Item Value Reference Range Interpretation Comments Chloride Lvl (test code = Chloride Lvl) 97 95-109 N [facility] CenterQwprkjoMOWWZHKBD2618-86-55 07:33:00 Test Item Value Reference Range Interpretation Comments Potassium Lvl (test code = Potassium 3.6 3.5-5.1 N Lvl) [facility] CenterHqqpdciOQWVJAQGB5548-47-25 07:33:00 Test Item Value Reference Range Interpretation Comments CO2 (test code = CO2) 27 24-32 N [facility] CenterQdrpvvqWZZTBUAAU3462-34-10 07:33:00 Test Item Value Reference Range Interpretation Comments Calcium Lvl (test code = Calcium Lvl) 8.1 8.5-10.5 L [facility] CenterDvxymxfNUUAUXTAT0749-83-61 07:33:00 Test Item Value Reference Range Interpretation Comments Glucose Lvl (test code = Glucose Lvl) 130 70-99 H [facility] CenterIfxklvmEADIVCYTM6968-01-28 07:33:00 Test Item Value Reference Range Interpretation Comments BUN (test code = BUN) 22 7-22 N [facility] CenterPckednaBXEFMFMTX3787-31-47 07:33:00 Test Item Value Reference Range Interpretation Comments Sodium Lvl (test code = Sodium Lvl) 136 135-145 N [facility] CenterUchnqddLHODMWYFZ5868-88-33 07:33:00 Test Item Value Reference Range Interpretation Comments Creatinine Lvl (test code = Creatinine 1.1 0.5-1.4 N Lvl) [facility] CenterOsssnnqDCUHCKZGH9260-71-29 07:33:00 Test Item Value Reference Range Interpretation Comments AGAP (test code = AGAP) 15.6 10.0-20.0 N [facility]DbqdfjpXBPGXUSBTG9305-71-23 07:33:00 Test Item Value Reference Range Interpretation Comments Basophils # (test code 0.1 See_Comment N [Aut omated message] The = Basophils #) system which generated this result tra nsmitted reference range : <=0.2. The reference r andreia was not used to int erpret this result as normal/abnormal . [facility] NortheastCgwjbhlVKZPUZCYKB6445-89-53 07:33:00 Test Item Value Reference Range Interpretation Comments Eosinophils # (test code 0.3 See_Comment N [A utomated message] The = Eosinophils #) system whic h generated this result tra nsmitted reference range : <=0.5. The reference r andreia was not used to int erpret this result as normal/abnormal . [facility] NortheastFxpfykqGXGBNLXKJJ0100-74-65 07:33:00 Test Item Value Reference Range Interpretation Comments Monocytes # (test code 0.9 See_Comment H [Aut omated message] The = Monocytes #) system which generated this result tra nsmitted reference range : <=0.8. The reference r andreia was not used to int erpret this result as normal/abnormal . [facility] NortheastUdbrqisXYMGXGTBON4601-14-48 07:33:00 Test Item Value Reference Range Interpretation Comments Monocytes (test code = Monocytes) 10.3 2.0-12.0 N [facility] NortheastHwhphuwTTIVGFKMYD7284-64-64 07:33:00 Test Item Value Reference Range Interpretation Comments Lymphocytes (test code = Lymphocytes) 24.6 20.0-40.0 N [facility]YxhfjtvFSQFFIYJNQ5097-34-53 07:33:00 Test Item Value Reference Range Interpretation Comments Segs (test code = Segs) 61.0 45.0-75.0 N [facility]QhlhwtcOJBOPDDFCW0205-92-46 07:33:00 Test Item Value Reference Range Interpretation Comments Lymphocytes # (test code = Lymphocytes 2.1 1.0-5.5 N #) [facility] NortheastSgnytsjOCFYECVMLI3819-36-12 07:33:00 Test Item Value Reference Range Interpretation Comments Basophils (test code = 1.0 See_Comment N [Aut omated message] The Basophils) system which ge nerated this result tra nsmitted reference range : <=1.0. The reference r andreia was not used to int erpret this result as normal/abnormal . [facility] NortheastRjuhdooYUHBBCDHDS3628-80-07 07:33:00 Test Item Value Reference Range Interpretation Comments Eosinophils (test code = 3.1 See_Comment N [A utomated message] The Eosinophils) system which ge nerated this result tra nsmitted reference range : <=4.0. The reference r andreia was not used to int erpret this result as normal/abnormal . [facility] NortheastOtokvzeAMWQVGCFHF7336-68-10 07:33:00 Test Item Value Reference Range Interpretation Comments Segs-Bands # (test code = Segs-Bands #) 5.1 1.5-8.1 N [facility] NortheastRnqukomLDJNNMVXJK9161-10-38 07:33:00 Test Item Value Reference Range Interpretation Comments MPV (test code = MPV) 7.1 7.4-10.4 L [facility] NortheastLtmurtaRDAUOOTKWF1917-15-23 07:33:00 Test Item Value Reference Range Interpretation Comments Platelet (test code = Platelet) 285 133-450 N [facility] NortheastMrqimxnALCRRMIOPP9540-89-00 07:33:00 Test Item Value Reference Range Interpretation Comments RDW (test code = RDW) 14.1 11.5-14.5 N [facility] NortheastYyadedpIKKWRRINIS2468-34-71 07:33:00 Test Item Value Reference Range Interpretation Comments Hgb (test code = Hgb) 8.1 12.0-16.0 L [facility] NortheastFdaplvhCRCFDDZRFI2488-04-93 07:33:00 Test Item Value Reference Range Interpretation Comments RBC X 10x6 (test code = RBC X 10x6) 2.65 4.20-5.40 L [facility] NortheastIujhselUUSOJJSHMG0832-16-91 07:33:00 Test Item Value Reference Range Interpretation Comments WBC X 10x3 (test code = WBC X 10x3) 8.4 3.7-10.4 N [facility] NortheastRfpkdrzJWWELDWEZU9021-74-76 07:33:00 Test Item Value Reference Range Interpretation Comments MCH (test code = MCH) 30.6 pg 27.0-31.0 N [facility] NortheastJkpipjwGYNSYVENGW6314-76-23 07:33:00 Test Item Value Reference Range Interpretation Comments Hct (test code = Hct) 24.2 36.0-48.0 L [facility] NortheastIahugskWTIOJTLXOA6802-28-76 07:33:00 Test Item Value Reference Range Interpretation Comments MCHC (test code = MCHC) 33.4 32.0-36.0 N [facility] NortheastLbnqxpePKQJBRCPFU8356-50-02 07:33:00 Test Item Value Reference Range Interpretation Comments MCV (test code = MCV) 91.5 81.0-99.0 N [facility] CenterRlqwjhqJGTOAXZAP6031-62-25 07:33:00 Test Item Value Reference Range Interpretation Comments eGFR (test code = eGFR) 48 [facility] CenterAynhvbsEZSTPAEFX8918-77-11 07:33:00 Test Item Value Reference Range Interpretation Comments Chloride Lvl (test code = Chloride Lvl) 97 95-109 N [facility] CenterXpqykfhZJDQPHXIB3887-08-11 07:33:00 Test Item Value Reference Range Interpretation Comments Potassium Lvl (test code = Potassium 3.6 3.5-5.1 N Lvl) [facility] CenterJiffhbxMQYXVDFDV0655-67-09 07:33:00 Test Item Value Reference Range Interpretation Comments CO2 (test code = CO2) 27 24-32 N [facility] CenterJxgbpksARAINNPRJ6006-63-84 07:33:00 Test Item Value Reference Range Interpretation Comments Calcium Lvl (test code = Calcium Lvl) 8.1 8.5-10.5 L [facility] CenterVaicwnzCCAIJLPNR5245-97-97 07:33:00 Test Item Value Reference Range Interpretation Comments Glucose Lvl (test code = Glucose Lvl) 130 70-99 H [facility] CenterFxseppvILNELWSNI6548-55-09 07:33:00 Test Item Value Reference Range Interpretation Comments BUN (test code = BUN) 22 7-22 N [facility] CenterDmpoqmoYPVRYHXPN7308-56-93 07:33:00 Test Item Value Reference Range Interpretation Comments Sodium Lvl (test code = Sodium Lvl) 136 135-145 N [facility] CenterJgvcfdrFDNYAFAQS5232-04-46 07:33:00 Test Item Value Reference Range Interpretation Comments Creatinine Lvl (test code = Creatinine 1.1 0.5-1.4 N Lvl) [facility] CenterHxgmgiaTPZFWPTSC8759-10-62 07:33:00 Test Item Value Reference Range Interpretation Comments AGAP (test code = AGAP) 15.6 10.0-20.0 N [facility] NortheastMxvyadeOPWSPXXPIL5023-52-64 07:33:00 Test Item Value Reference Range Interpretation Comments Basophils # (test code 0.1 See_Comment N [Aut omated message] The = Basophils #) system which generated this result tra nsmitted reference range : <=0.2. The reference r andreia was not used to int erpret this result as normal/abnormal . [facility] NortheastKgwpedlTUOIOEOQEO7981-62-13 07:33:00 Test Item Value Reference Range Interpretation Comments Eosinophils # (test code 0.3 See_Comment N [A utomated message] The = Eosinophils #) system whic h generated this result tra nsmitted reference range : <=0.5. The reference r andreia was not used to int erpret this result as normal/abnormal . [facility] NortheastBrnvvzyMXIWLAEBKD7849-51-03 07:33:00 Test Item Value Reference Range Interpretation Comments Monocytes # (test code 0.9 See_Comment H [Aut omated message] The = Monocytes #) system which generated this result tra nsmitted reference range : <=0.8. The reference r andreia was not used to int erpret this result as normal/abnormal . [facility] NortheastZitvapfOMXZVDMIYY0202-64-96 07:33:00 Test Item Value Reference Range Interpretation Comments Monocytes (test code = Monocytes) 10.3 2.0-12.0 N [facility] NortheastDcumyndNXKTDITSUT7399-43-83 07:33:00 Test Item Value Reference Range Interpretation Comments Lymphocytes (test code = Lymphocytes) 24.6 20.0-40.0 N [facility]LjchcuvKTPQVSGVIQ4098-59-61 07:33:00 Test Item Value Reference Range Interpretation Comments Segs (test code = Segs) 61.0 45.0-75.0 N [facility] NortheastJqoiggtYBYUHYWGUG1039-67-36 07:33:00 Test Item Value Reference Range Interpretation Comments Lymphocytes # (test code = Lymphocytes 2.1 1.0-5.5 N #) [facility] NortheastYkvwgiqSNAZHCJTBE4359-75-36 07:33:00 Test Item Value Reference Range Interpretation Comments Basophils (test code = 1.0 See_Comment N [Aut omated message] The Basophils) system which ge nerated this result tra nsmitted reference range : <=1.0. The reference r andreia was not used to int erpret this result as normal/abnormal . [facility] NortheastJoeyenbMLBEKZLYZW0553-97-20 07:33:00 Test Item Value Reference Range Interpretation Comments Eosinophils (test code = 3.1 See_Comment N [A utomated message] The Eosinophils) system which ge nerated this result tra nsmitted reference range : <=4.0. The reference r andreia was not used to int erpret this result as normal/abnormal . [facility] NortheastUiulkrjXBHIDDPWJJ6699-92-97 07:33:00 Test Item Value Reference Range Interpretation Comments Segs-Bands # (test code = Segs-Bands #) 5.1 1.5-8.1 N [facility] NortheastRmgllxgSQBDJHCEQX5249-31-06 07:33:00 Test Item Value Reference Range Interpretation Comments MPV (test code = MPV) 7.1 7.4-10.4 L [facility] NortheastJdokkttZBYSQYDMOP3428-15-79 07:33:00 Test Item Value Reference Range Interpretation Comments Platelet (test code = Platelet) 285 133-450 N [facility] NortheastVyyiflxAPQCJSKTUC8516-34-86 07:33:00 Test Item Value Reference Range Interpretation Comments RDW (test code = RDW) 14.1 11.5-14.5 N [facility] NortheastTbdjedlYWQDEWRVHT0457-74-36 07:33:00 Test Item Value Reference Range Interpretation Comments Hgb (test code = Hgb) 8.1 12.0-16.0 L [facility] NortheastGmtqvsiUEBPGJOFSI5957-16-91 07:33:00 Test Item Value Reference Range Interpretation Comments RBC X 10x6 (test code = RBC X 10x6) 2.65 4.20-5.40 L [facility] NortheastMywhwnjQTZKWVXIJJ1664-24-64 07:33:00 Test Item Value Reference Range Interpretation Comments WBC X 10x3 (test code = WBC X 10x3) 8.4 3.7-10.4 N [facility] NortheastZcliiyjWZXZKIAHNN5696-72-37 07:33:00 Test Item Value Reference Range Interpretation Comments MCH (test code = MCH) 30.6 pg 27.0-31.0 N [facility] NortheastBjqqnlaYVBPNHHMSJ2482-94-50 07:33:00 Test Item Value Reference Range Interpretation Comments Hct (test code = Hct) 24.2 36.0-48.0 L [facility] NortheastWohimfkEWVCLFZFBL2693-36-51 07:33:00 Test Item Value Reference Range Interpretation Comments MCHC (test code = MCHC) 33.4 32.0-36.0 N [facility] NortheastVfanitdMBYTTNYYKK5688-19-27 07:33:00 Test Item Value Reference Range Interpretation Comments MCV (test code = MCV) 91.5 81.0-99.0 N [facility] CenterNaygfwgURXJCBAFN0744-26-04 07:33:00 Test Item Value Reference Range Interpretation Comments eGFR (test code = eGFR) 48 [facility] CenterVgxswtfXGVGLSSNI4926-20-10 07:33:00 Test Item Value Reference Range Interpretation Comments Chloride Lvl (test code = Chloride Lvl) 97 95-109 N [facility] CenterPovmkjtUXOSCYRPD9872-84-74 07:33:00 Test Item Value Reference Range Interpretation Comments Potassium Lvl (test code = Potassium 3.6 3.5-5.1 N Lvl) [facility] CenterVkmchcgEIGALIFKP0695-43-59 07:33:00 Test Item Value Reference Range Interpretation Comments CO2 (test code = CO2) 27 24-32 N [facility] CenterAgmvznhITUWKODQU1249-85-98 07:33:00 Test Item Value Reference Range Interpretation Comments Calcium Lvl (test code = Calcium Lvl) 8.1 8.5-10.5 L [facility] CenterHmmbtvpLLCNOZTUA7662-34-51 07:33:00 Test Item Value Reference Range Interpretation Comments Glucose Lvl (test code = Glucose Lvl) 130 70-99 H [facility] CenterZxsqeieOGZRCDWCQ1229-51-95 07:33:00 Test Item Value Reference Range Interpretation Comments BUN (test code = BUN) 22 7-22 N [facility] CenterMyuzyrgCMCIMASFI1968-81-06 07:33:00 Test Item Value Reference Range Interpretation Comments Sodium Lvl (test code = Sodium Lvl) 136 135-145 N [facility] CenterYtwwrrzTRQXYMIYP5885-76-27 07:33:00 Test Item Value Reference Range Interpretation Comments Creatinine Lvl (test code = Creatinine 1.1 0.5-1.4 N Lvl) [facility] CenterUrkmwmiLCOMAVKTB1169-57-16 07:33:00 Test Item Value Reference Range Interpretation Comments AGAP (test code = AGAP) 15.6 10.0-20.0 N [facility] NortheastTvazqwhNNASYDJASU2910-61-49 07:33:00 Test Item Value Reference Range Interpretation Comments Basophils # (test code 0.1 See_Comment N [Aut omated message] The = Basophils #) system which generated this result tra nsmitted reference range : <=0.2. The reference r andreia was not used to int erpret this result as normal/abnormal . [facility] NortheastVxzekobYZTAMEHHLD1970-08-05 07:33:00 Test Item Value Reference Range Interpretation Comments Eosinophils # (test code 0.3 See_Comment N [A utomated message] The = Eosinophils #) system whic h generated this result tra nsmitted reference range : <=0.5. The reference r andreia was not used to int erpret this result as normal/abnormal . [facility] NortheastExuwkfwNORNVHZEGM5167-66-32 07:33:00 Test Item Value Reference Range Interpretation Comments Monocytes # (test code 0.9 See_Comment H [Aut omated message] The = Monocytes #) system which generated this result tra nsmitted reference range : <=0.8. The reference r andreia was not used to int erpret this result as normal/abnormal . [facility] NortheastIgnhooxYEVAGIVAYT4378-88-52 07:33:00 Test Item Value Reference Range Interpretation Comments Monocytes (test code = Monocytes) 10.3 2.0-12.0 N [facility] NortheastVyxdaswLDTYVNZLNI5177-64-85 07:33:00 Test Item Value Reference Range Interpretation Comments Lymphocytes (test code = Lymphocytes) 24.6 20.0-40.0 N [facility] NortheastXiodnrnFGBTMHRBGI4779-46-88 07:33:00 Test Item Value Reference Range Interpretation Comments Segs (test code = Segs) 61.0 45.0-75.0 N [facility] NortheastMmglgtxDNJTJKJFXB6306-70-37 07:33:00 Test Item Value Reference Range Interpretation Comments Lymphocytes # (test code = Lymphocytes 2.1 1.0-5.5 N #) [facility] NortheastJtndwjxGGGGBBZPGG5077-62-36 07:33:00 Test Item Value Reference Range Interpretation Comments Basophils (test code = 1.0 See_Comment N [Aut omated message] The Basophils) system which ge nerated this result tra nsmitted reference range : <=1.0. The reference r andreia was not used to int erpret this result as normal/abnormal . [facility] NortheastGvcjivoTGKDTAEUOO9163-48-63 07:33:00 Test Item Value Reference Range Interpretation Comments Eosinophils (test code = 3.1 See_Comment N [A utomated message] The Eosinophils) system which ge nerated this result tra nsmitted reference range : <=4.0. The reference r andreia was not used to int erpret this result as normal/abnormal . [facility] NortheastRfkykcqZILLLPGNCD9640-53-66 07:33:00 Test Item Value Reference Range Interpretation Comments Segs-Bands # (test code = Segs-Bands #) 5.1 1.5-8.1 N [facility] NortheastIuqqlstXAUMEFQVOH9305-21-64 07:33:00 Test Item Value Reference Range Interpretation Comments MPV (test code = MPV) 7.1 7.4-10.4 L [facility] NortheastDbjjyfbZRDHDAGGQX0882-85-75 07:33:00 Test Item Value Reference Range Interpretation Comments Platelet (test code = Platelet) 285 133-450 N [facility] NortheastQhyqnzaHYZNGVJBYV0485-38-08 07:33:00 Test Item Value Reference Range Interpretation Comments RDW (test code = RDW) 14.1 11.5-14.5 N [facility] NortheastRbubxyuSQAUDGZPKY3229-14-21 07:33:00 Test Item Value Reference Range Interpretation Comments Hgb (test code = Hgb) 8.1 12.0-16.0 L [facility] NortheastQzlgtszAIGFSHUHJA6484-65-13 07:33:00 Test Item Value Reference Range Interpretation Comments RBC X 10x6 (test code = RBC X 10x6) 2.65 4.20-5.40 L [facility] NortheastXipymcwTCCKTUVADN7873-30-81 07:33:00 Test Item Value Reference Range Interpretation Comments WBC X 10x3 (test code = WBC X 10x3) 8.4 3.7-10.4 N [facility] NortheastVsdfonpYLNDUASPED6377-55-08 07:33:00 Test Item Value Reference Range Interpretation Comments MCH (test code = MCH) 30.6 pg 27.0-31.0 N [facility] NortheastHvdvajnULPOKWEPST0592-74-55 07:33:00 Test Item Value Reference Range Interpretation Comments Hct (test code = Hct) 24.2 36.0-48.0 L [facility] NortheastQysohsdGWPDPGROJK7467-46-30 07:33:00 Test Item Value Reference Range Interpretation Comments MCHC (test code = MCHC) 33.4 32.0-36.0 N [facility] NortheastTrmfcxrGIBYFWCBLB7843-87-20 07:33:00 Test Item Value Reference Range Interpretation Comments MCV (test code = MCV) 91.5 81.0-99.0 N [facility] CenterHxtoaceCGNFVJHBH2336-51-41 07:33:00 Test Item Value Reference Range Interpretation Comments eGFR (test code = eGFR) 48 [facility] CenterOzrbljyEIUTCYKLP3909-26-97 07:33:00 Test Item Value Reference Range Interpretation Comments Chloride Lvl (test code = Chloride Lvl) 97 95-109 N [facility] CenterVdmqoncWIKCOSUDA4947-60-44 07:33:00 Test Item Value Reference Range Interpretation Comments Potassium Lvl (test code = Potassium 3.6 3.5-5.1 N Lvl) [facility] CenterBccwhufCMEZODDIK5840-60-26 07:33:00 Test Item Value Reference Range Interpretation Comments CO2 (test code = CO2) 27 24-32 N [facility] CenterYuyzznfBENPJVAAC7193-90-79 07:33:00 Test Item Value Reference Range Interpretation Comments Calcium Lvl (test code = Calcium Lvl) 8.1 8.5-10.5 L [facility] CenterYcjhxpqWXQHFNGGL7767-45-23 07:33:00 Test Item Value Reference Range Interpretation Comments Glucose Lvl (test code = Glucose Lvl) 130 70-99 H [facility] CenterMfrsumjDBXYBWTXE1532-84-53 07:33:00 Test Item Value Reference Range Interpretation Comments BUN (test code = BUN) 22 7-22 N [facility] CenterDmonmjyFWXWZOOYV7122-57-20 07:33:00 Test Item Value Reference Range Interpretation Comments Sodium Lvl (test code = Sodium Lvl) 136 135-145 N [facility] CenterAnztcfoPKIWDZYPP6074-01-21 07:33:00 Test Item Value Reference Range Interpretation Comments Creatinine Lvl (test code = Creatinine 1.1 0.5-1.4 N Lvl) [facility] CenterLnbojoyTBAQIQHYX2799-02-56 07:33:00 Test Item Value Reference Range Interpretation Comments AGAP (test code = AGAP) 15.6 10.0-20.0 N [facility] NortheastGrrhwgoLEVBOKGEZQ6507-79-01 07:33:00 Test Item Value Reference Range Interpretation Comments Basophils # (test code 0.1 See_Comment N [Aut omated message] The = Basophils #) system which generated this result tra nsmitted reference range : <=0.2. The reference r andreia was not used to int erpret this result as normal/abnormal . [facility] NortheastMbwneutHZODTSYLUB7375-38-69 07:33:00 Test Item Value Reference Range Interpretation Comments Eosinophils # (test code 0.3 See_Comment N [A utomated message] The = Eosinophils #) system whic h generated this result tra nsmitted reference range : <=0.5. The reference r andreia was not used to int erpret this result as normal/abnormal . [facility] NortheastLkvbucoVFRRKKEFPF0574-50-63 07:33:00 Test Item Value Reference Range Interpretation Comments Monocytes # (test code 0.9 See_Comment H [Aut omated message] The = Monocytes #) system which generated this result tra nsmitted reference range : <=0.8. The reference r andreia was not used to int erpret this result as normal/abnormal . [facility] NortheastCkstqynDDVBZZLKPP7106-20-41 07:33:00 Test Item Value Reference Range Interpretation Comments Monocytes (test code = Monocytes) 10.3 2.0-12.0 N [facility] NortheastHfnrdjfAPWAVGBXJI8394-62-98 07:33:00 Test Item Value Reference Range Interpretation Comments Lymphocytes (test code = Lymphocytes) 24.6 20.0-40.0 N [facility] NortheastFumqzayXZKAMGBECQ0214-25-39 07:33:00 Test Item Value Reference Range Interpretation Comments Segs (test code = Segs) 61.0 45.0-75.0 N [facility] NortheastVebimbzMIGMSDWOBJ2235-41-30 07:33:00 Test Item Value Reference Range Interpretation Comments Lymphocytes # (test code = Lymphocytes 2.1 1.0-5.5 N #) [facility] NortheastCvdgkidOGXZNNSNHL5222-46-31 07:33:00 Test Item Value Reference Range Interpretation Comments Basophils (test code = 1.0 See_Comment N [Aut omated message] The Basophils) system which ge nerated this result tra nsmitted reference range : <=1.0. The reference r andreia was not used to int erpret this result as normal/abnormal . [facility] NortheastGzwjqrgABVTMWNCJW7542-20-83 07:33:00 Test Item Value Reference Range Interpretation Comments Eosinophils (test code = 3.1 See_Comment N [A utomated message] The Eosinophils) system which ge nerated this result tra nsmitted reference range : <=4.0. The reference r andreia was not used to int erpret this result as normal/abnormal . [facility] [facility]GqdtrmnYTVRQSEFWQ2990-34-29 07:33:00 Test Item Value Reference Range Interpretation Comments Segs-Bands # (test code = Segs-Bands #) 5.1 1.5-8.1 [facility]VcfvgnmGRIZNOYBTW3379-38-71 07:33:00 Test Item Value Reference Range Interpretation Comments MPV (test code = MPV) 7.1 7.4-10.4 [facility] NortheastZivopmpVWARVCVXEO2603-81-01 07:33:00 Test Item Value Reference Range Interpretation Comments Platelet (test code = Platelet) 285 133-450 N [facility] NortheastXiionlfXLVPPKCOZM3498-12-59 07:33:00 Test Item Value Reference Range Interpretation Comments RDW (test code = RDW) 14.1 11.5-14.5 [facility] NortheastTkrbshvGCVCXXPBMX0181-38-59 07:33:00 Test Item Value Reference Range Interpretation Comments Hgb (test code = Hgb) 8.1 12.0-16.0 L [facility] NortheastWqxufrpFPTTLIUFKL7745-51-51 07:33:00 Test Item Value Reference Range Interpretation Comments RBC X 10x6 (test code = RBC X 10x6) 2.65 4.20-5.40 [facility] NortheastRsrmcmqIGQJMIPNCL7556-61-53 07:33:00 Test Item Value Reference Range Interpretation Comments WBC X 10x3 (test code = WBC X 10x3) 8.4 3.7-10.4 N [facility] NortheastKzinknwHBXJQIOTYL5610-58-05 07:33:00 Test Item Value Reference Range Interpretation Comments MCH (test code = MCH) 30.6 pg 27.0-31.0 N [facility] NortheastGybdyxfKNLQVAZAGP3104-35-65 07:33:00 Test Item Value Reference Range Interpretation Comments Hct (test code = Hct) 24.2 36.0-48.0 [facility] NortheastHqflcvdHRDVKAQLNK4827-36-20 07:33:00 Test Item Value Reference Range Interpretation Comments MCHC (test code = MCHC) 33.4 32.0-36.0 N [facility] NortheastFlsxmblHELGHHDSHW5501-14-07 07:33:00 Test Item Value Reference Range Interpretation Comments MCV (test code = MCV) 91.5 81.0-99.0 N [facility]UlncxvqCJPIXCQSZ7365-31-78 07:33:00 Test Item Value Reference Range Interpretation Comments eGFR (test code = eGFR) 48 [facility] CenterBftdoveIBOENUQBE2359-23-74 07:33:00 Test Item Value Reference Range Interpretation Comments Chloride Lvl (test code = Chloride Lvl) 97 95-109 N [facility] CenterFvkvjdgJRYDATAEH2201-23-30 07:33:00 Test Item Value Reference Range Interpretation Comments Potassium Lvl (test code = Potassium 3.6 3.5-5.1 N Lvl) [facility] CenterJvgtmceSXSAANQXD9002-23-19 07:33:00 Test Item Value Reference Range Interpretation Comments CO2 (test code = CO2) 27 24-32 N [facility] CenterRkrbflxDQLFWZCGR5615-71-51 07:33:00 Test Item Value Reference Range Interpretation Comments Calcium Lvl (test code = Calcium Lvl) 8.1 8.5-10.5 L [facility] CenterWchrcpsYFQPYRLJI5301-34-92 07:33:00 Test Item Value Reference Range Interpretation Comments Glucose Lvl (test code = Glucose Lvl) 130 70-99 H [facility] CenterTgqldinZWSOVCETE1302-40-87 07:33:00 Test Item Value Reference Range Interpretation Comments BUN (test code = BUN) 22 7-22 N [facility] CenterTjpvilyWHVEIBNXS8213-32-69 07:33:00 Test Item Value Reference Range Interpretation Comments Sodium Lvl (test code = Sodium Lvl) 136 135-145 N [facility] CenterLmguncjHQWXQQMKM1254-42-99 07:33:00 Test Item Value Reference Range Interpretation Comments Creatinine Lvl (test code = Creatinine 1.1 0.5-1.4 N Lvl) [facility] CenterLytaagzPVCHFFERJ0663-70-65 07:33:00 Test Item Value Reference Range Interpretation Comments AGAP (test code = AGAP) 15.6 10.0-20.0 [facility] NortheastHvpqqyfEYBXDCSGKM9140-51-41 07:33:00 Test Item Value Reference Range Interpretation Comments Basophils # (test code 0.1 See_Comment N [Aut omated message] The = Basophils #) system which generated this result tra nsmitted reference range : <=0.2. The reference r andreia was not used to int erpret this result as normal/abnormal . [facility] NortheastHgilsptPUFZSUUSOA6416-68-99 07:33:00 Test Item Value Reference Range Interpretation Comments Eosinophils # (test code 0.3 See_Comment N [A utomated message] The = Eosinophils #) system whic h generated this result tra nsmitted reference range : <=0.5. The reference r andreia was not used to int erpret this result as normal/abnormal . [facility] NortheastYlzwxkgZOTGWHLBBE8525-55-97 07:33:00 Test Item Value Reference Range Interpretation Comments Monocytes # (test code 0.9 See_Comment H [Aut omated message] The = Monocytes #) system which generated this result tra nsmitted reference range : <=0.8. The reference r andreia was not used to int erpret this result as normal/abnormal . [facility] NortheastZyjgmepELRVHOANFS1956-65-61 07:33:00 Test Item Value Reference Range Interpretation Comments Monocytes (test code = Monocytes) 10.3 2.0-12.0 N [facility] NortheastZayccdlCVLCRVJFGH5583-58-52 07:33:00 Test Item Value Reference Range Interpretation Comments Lymphocytes (test code = Lymphocytes) 24.6 20.0-40.0 [facility] NortheastHqzobhlIGOJUPMUOG6069-91-41 07:33:00 Test Item Value Reference Range Interpretation Comments Segs (test code = Segs) 61.0 45.0-75.0 [facility] NortheastMxifgvfMTZWTOQXHK8126-45-16 07:33:00 Test Item Value Reference Range Interpretation Comments Lymphocytes # (test code = Lymphocytes 2.1 1.0-5.5 N #) [facility] NortheastPgnszpmVNSYQRJODG0512-83-93 07:33:00 Test Item Value Reference Range Interpretation Comments Basophils (test code = 1.0 See_Comment N [Aut omated message] The Basophils) system which ge nerated this result tra nsmitted reference range : <=1.0. The reference r andreia was not used to int erpret this result as normal/abnormal . [facility] NortheastJrpskoxHZRPBFNCUJ7079-84-19 07:33:00 Test Item Value Reference Range Interpretation Comments Eosinophils (test code = 3.1 See_Comment N [A utomated message] The Eosinophils) system which ge nerated this result tra nsmitted reference range : <=4.0. The reference r andreia was not used to int erpret this result as normal/abnormal . [facility] NortheastWjwgkbpKLELKXTXBO3094-45-69 07:33:00 Test Item Value Reference Range Interpretation Comments Segs-Bands # (test code = Segs-Bands #) 5.1 1.5-8.1 N [facility] NortheastVvmdgfbAOMBJNBWJX4374-82-68 07:33:00 Test Item Value Reference Range Interpretation Comments MPV (test code = MPV) 7.1 7.4-10.4 L [facility] NortheastHdtsipnLQHZQJWOKZ6100-80-59 07:33:00 Test Item Value Reference Range Interpretation Comments Platelet (test code = Platelet) 285 133-450 N [facility] NortheastOotmuftDJCXJMFXGG9672-13-72 07:33:00 Test Item Value Reference Range Interpretation Comments RDW (test code = RDW) 14.1 11.5-14.5 N [facility] NortheastVrytuiwRRWKWCBTXM9610-88-03 07:33:00 Test Item Value Reference Range Interpretation Comments Hgb (test code = Hgb) 8.1 12.0-16.0 L [facility] NortheastZicmhfuRQPCFTOZGH3748-90-12 07:33:00 Test Item Value Reference Range Interpretation Comments RBC X 10x6 (test code = RBC X 10x6) 2.65 4.20-5.40 L [facility] NortheastPrwwrzhSPOMMKJXIS2779-98-08 07:33:00 Test Item Value Reference Range Interpretation Comments WBC X 10x3 (test code = WBC X 10x3) 8.4 3.7-10.4 N [facility] NortheastXbvulxdBEYGSRTHDJ3891-69-27 07:33:00 Test Item Value Reference Range Interpretation Comments MCH (test code = MCH) 30.6 pg 27.0-31.0 N [facility] NortheastRonparzJZPFJFCPSM3362-58-40 07:33:00 Test Item Value Reference Range Interpretation Comments Hct (test code = Hct) 24.2 36.0-48.0 L [facility] NortheastBkrwezoIXXWKZDETD9786-32-65 07:33:00 Test Item Value Reference Range Interpretation Comments MCHC (test code = MCHC) 33.4 32.0-36.0 N [facility] NortheastAmvpfwjBWAUJCOGPF6914-48-18 07:33:00 Test Item Value Reference Range Interpretation Comments MCV (test code = MCV) 91.5 81.0-99.0 N [facility] CenterRkmqksdHIONIOOVF4388-33-76 07:33:00 Test Item Value Reference Range Interpretation Comments eGFR (test code = eGFR) 48 [facility] CenterAnzgaitJYBQRXMES3431-67-82 07:33:00 Test Item Value Reference Range Interpretation Comments Chloride Lvl (test code = Chloride Lvl) 97 95-109 N [facility] CenterVqquzsdQTGJBUOEP2609-01-87 07:33:00 Test Item Value Reference Range Interpretation Comments Potassium Lvl (test code = Potassium 3.6 3.5-5.1 N Lvl) [facility] CenterDxwrbysHWYSZLYQP4759-14-69 07:33:00 Test Item Value Reference Range Interpretation Comments CO2 (test code = CO2) 27 24-32 N [facility] CenterAlsaxgbHKPTJNEUI5646-66-28 07:33:00 Test Item Value Reference Range Interpretation Comments Calcium Lvl (test code = Calcium Lvl) 8.1 8.5-10.5 L [facility] CenterKcqaublTDDZBBQQX8718-00-59 07:33:00 Test Item Value Reference Range Interpretation Comments Glucose Lvl (test code = Glucose Lvl) 130 70-99 H [facility] CenterYhuedwpAAEVBCJQZ2350-39-37 07:33:00 Test Item Value Reference Range Interpretation Comments BUN (test code = BUN) 22 7-22 N [facility] CenterQxnueqtWYLIBVRTD5784-88-38 07:33:00 Test Item Value Reference Range Interpretation Comments Sodium Lvl (test code = Sodium Lvl) 136 135-145 N [facility] CenterHtdibwsHMATCMOKP0047-47-75 07:33:00 Test Item Value Reference Range Interpretation Comments Creatinine Lvl (test code = Creatinine 1.1 0.5-1.4 N Lvl) [facility] CenterJwjgijrGBCVSDHKM1758-64-84 07:33:00 Test Item Value Reference Range Interpretation Comments AGAP (test code = AGAP) 15.6 10.0-20.0 N [facility] NortheastCqgtloiRLSAOETLFW8227-13-24 07:33:00 Test Item Value Reference Range Interpretation Comments Basophils # (test code 0.1 See_Comment N [Aut omated message] The = Basophils #) system which generated this result tra nsmitted reference range : <=0.2. The reference r andreia was not used to int erpret this result as normal/abnormal . [facility] NortheastFchloiqBLMPOREEGU7351-98-05 07:33:00 Test Item Value Reference Range Interpretation Comments Eosinophils # (test code 0.3 See_Comment N [A utomated message] The = Eosinophils #) system whic h generated this result tra nsmitted reference range : <=0.5. The reference r andreia was not used to int erpret this result as normal/abnormal . [facility] NortheastFxqsfdxQTLOHFNOFE7011-74-12 07:33:00 Test Item Value Reference Range Interpretation Comments Monocytes # (test code 0.9 See_Comment H [Aut omated message] The = Monocytes #) system which generated this result tra nsmitted reference range : <=0.8. The reference r andreia was not used to int erpret this result as normal/abnormal . [facility] NortheastDoxpfobDCXNNREVEL8749-15-45 07:33:00 Test Item Value Reference Range Interpretation Comments Monocytes (test code = Monocytes) 10.3 2.0-12.0 N [facility] NortheastVpyxvdpRJJXPZMPDM2633-63-32 07:33:00 Test Item Value Reference Range Interpretation Comments Lymphocytes (test code = Lymphocytes) 24.6 20.0-40.0 [facility] NortheastEladmruNSSUXYVGSF7543-41-98 07:33:00 Test Item Value Reference Range Interpretation Comments Segs (test code = Segs) 61.0 45.0-75.0 N [facility] NortheastPzrlxyuCAYMHLQSGB7349-48-08 07:33:00 Test Item Value Reference Range Interpretation Comments Lymphocytes # (test code = Lymphocytes 2.1 1.0-5.5 N #) [facility] NortheastBzppdawWNDCDPDSXF7833-02-58 07:33:00 Test Item Value Reference Range Interpretation Comments Basophils (test code = 1.0 See_Comment N [Aut omated message] The Basophils) system which ge nerated this result tra nsmitted reference range : <=1.0. The reference r andreia was not used to int erpret this result as normal/abnormal . [facility] NortheastJehrgsiGXSDKHHCJQ1718-60-05 07:33:00 Test Item Value Reference Range Interpretation Comments Eosinophils (test code = 3.1 See_Comment N [A utomated message] The Eosinophils) system which ge nerated this result tra nsmitted reference range : <=4.0. The reference r andreia was not used to int erpret this result as normal/abnormal . [facility] NortheastMnsnvxeEYNWCTJXII0820-82-14 07:33:00 Test Item Value Reference Range Interpretation Comments Segs-Bands # (test code = Segs-Bands #) 5.1 1.5-8.1 N [facility] NortheastUkdnjblBKTXNEIFZL4205-51-37 07:33:00 Test Item Value Reference Range Interpretation Comments MPV (test code = MPV) 7.1 7.4-10.4 L [facility] NortheastSvexlaeKNQXOECEUQ4181-94-23 07:33:00 Test Item Value Reference Range Interpretation Comments Platelet (test code = Platelet) 285 133-450 N [facility] NortheastTayiscuZMASDCHHFD4810-31-04 07:33:00 Test Item Value Reference Range Interpretation Comments RDW (test code = RDW) 14.1 11.5-14.5 [facility] NortheastXigvffnLIDTOHEJNC4715-91-93 07:33:00 Test Item Value Reference Range Interpretation Comments Hgb (test code = Hgb) 8.1 12.0-16.0 L [facility] NortheastGfspkpzWMSRMFQSRA3098-65-87 07:33:00 Test Item Value Reference Range Interpretation Comments RBC X 10x6 (test code = RBC X 10x6) 2.65 4.20-5.40 L [facility] NortheastFbstcfbPTGFAWVQIH1327-86-96 07:33:00 Test Item Value Reference Range Interpretation Comments WBC X 10x3 (test code = WBC X 10x3) 8.4 3.7-10.4 N [facility] NortheastIxucxdxLKRWLLLKIP0248-87-64 07:33:00 Test Item Value Reference Range Interpretation Comments MCH (test code = MCH) 30.6 pg 27.0-31.0 N [facility] NortheastBwtvajnWRATSUNBKA1420-64-19 07:33:00 Test Item Value Reference Range Interpretation Comments Hct (test code = Hct) 24.2 36.0-48.0 L [facility] NortheastQstmmtxDDOQBIPRVT9831-24-26 07:33:00 Test Item Value Reference Range Interpretation Comments MCHC (test code = MCHC) 33.4 32.0-36.0 N [facility] NortheastYdiotcoQJAYUXDFGH0592-85-96 07:33:00 Test Item Value Reference Range Interpretation Comments MCV (test code = MCV) 91.5 81.0-99.0 N [facility] CenterRbrnybbGMYMJMSBG5328-73-66 07:33:00 Test Item Value Reference Range Interpretation Comments eGFR (test code = eGFR) 48 [facility] CenterZxjvbjkMFKHZICCK5079-80-92 07:33:00 Test Item Value Reference Range Interpretation Comments Chloride Lvl (test code = Chloride Lvl) 97 95-109 N [facility] CenterOhubswkYERAPQIQV6612-34-54 07:33:00 Test Item Value Reference Range Interpretation Comments Potassium Lvl (test code = Potassium 3.6 3.5-5.1 N Lvl) [facility] CenterZhgqaqvUDVGNEGMR9375-60-09 07:33:00 Test Item Value Reference Range Interpretation Comments CO2 (test code = CO2) 27 24-32 N [facility] CenterYnxqtaoTIHLWSEGC9727-03-61 07:33:00 Test Item Value Reference Range Interpretation Comments Calcium Lvl (test code = Calcium Lvl) 8.1 8.5-10.5 L [facility] CenterGnefqsrTDDXKPUEJ6627-53-42 07:33:00 Test Item Value Reference Range Interpretation Comments Glucose Lvl (test code = Glucose Lvl) 130 70-99 H [facility] CenterKjphvdeGELQPLBTL0826-15-10 07:33:00 Test Item Value Reference Range Interpretation Comments BUN (test code = BUN) 22 7-22 N [facility] CenterCqqoxkmBJJQOTTKE0563-46-76 07:33:00 Test Item Value Reference Range Interpretation Comments Sodium Lvl (test code = Sodium Lvl) 136 135-145 N [facility] CenterYhlqsgkTHPNNABJT3347-07-71 07:33:00 Test Item Value Reference Range Interpretation Comments Creatinine Lvl (test code = Creatinine 1.1 0.5-1.4 N Lvl) [facility] CenterTqoeswyAOCLXQNDP9822-16-43 07:33:00 Test Item Value Reference Range Interpretation Comments AGAP (test code = AGAP) 15.6 10.0-20.0 [facility] NortheastHggjgnaCWSLQQDEFL7654-48-13 07:33:00 Test Item Value Reference Range Interpretation Comments Basophils # (test code 0.1 See_Comment N [Aut omated message] The = Basophils #) system which generated this result tra nsmitted reference range : <=0.2. The reference r andreia was not used to int erpret this result as normal/abnormal . [facility] NortheastIcmxlpvMQWYBRPBUI2030-25-28 07:33:00 Test Item Value Reference Range Interpretation Comments Eosinophils # (test code 0.3 See_Comment N [A utomated message] The = Eosinophils #) system whic h generated this result tra nsmitted reference range : <=0.5. The reference r andreia was not used to int erpret this result as normal/abnormal . [facility] NortheastSibzjqbXVKNZSWRWW6322-45-15 07:33:00 Test Item Value Reference Range Interpretation Comments Monocytes # (test code 0.9 See_Comment H [Aut omated message] The = Monocytes #) system which generated this result tra nsmitted reference range : <=0.8. The reference r andreia was not used to int erpret this result as normal/abnormal . [facility] NortheastLwqloolXWMGZHGDZP4095-03-41 07:33:00 Test Item Value Reference Range Interpretation Comments Monocytes (test code = Monocytes) 10.3 2.0-12.0 N [facility] NortheastTeslurnFRFVZHJNXX4967-21-08 07:33:00 Test Item Value Reference Range Interpretation Comments Lymphocytes (test code = Lymphocytes) 24.6 20.0-40.0 N [facility] NortheastTxkkmokQUGFBYPLPH5375-56-78 07:33:00 Test Item Value Reference Range Interpretation Comments Segs (test code = Segs) 61.0 45.0-75.0 N [facility] NortheastWlbclabPFIKVCHLZI1216-76-02 07:33:00 Test Item Value Reference Range Interpretation Comments Lymphocytes # (test code = Lymphocytes 2.1 1.0-5.5 N #) [facility] NortheastGgrsfbzZASOBLUMKE4162-81-15 07:33:00 Test Item Value Reference Range Interpretation Comments Basophils (test code = 1.0 See_Comment N [Aut omated message] The Basophils) system which ge nerated this result tra nsmitted reference range : <=1.0. The reference r andreia was not used to int erpret this result as normal/abnormal . [facility] NortheastYhbsryhKIVCXQTTCC9966-66-64 07:33:00 Test Item Value Reference Range Interpretation Comments Eosinophils (test code = 3.1 See_Comment N [A utomated message] The Eosinophils) system which ge nerated this result tra nsmitted reference range : <=4.0. The reference r andreia was not used to int erpret this result as normal/abnormal . [facility] NortheastDegtnevCFVSRRCLKW6132-39-28 07:33:00 Test Item Value Reference Range Interpretation Comments Segs-Bands # (test code = Segs-Bands #) 5.1 1.5-8.1 N [facility] NortheastIbvtpagUSIHUQMVKM1404-00-45 07:33:00 Test Item Value Reference Range Interpretation Comments MPV (test code = MPV) 7.1 7.4-10.4 L [facility] NortheastXcfdfxlPPOZPJRBBC7329-01-76 07:33:00 Test Item Value Reference Range Interpretation Comments Platelet (test code = Platelet) 285 133-450 N [facility] NortheastMdgruhxKSXGCIGNAV4012-11-18 07:33:00 Test Item Value Reference Range Interpretation Comments RDW (test code = RDW) 14.1 11.5-14.5 N [facility] NortheastRzogmfcWVFWNDKGLJ2421-67-48 07:33:00 Test Item Value Reference Range Interpretation Comments Hgb (test code = Hgb) 8.1 12.0-16.0 L [facility] NortheastKgwoawsGUYQMGASIZ6844-78-18 07:33:00 Test Item Value Reference Range Interpretation Comments RBC X 10x6 (test code = RBC X 10x6) 2.65 4.20-5.40 [facility] NortheastLgrtmcmAHRXHAOSEQ1970-70-93 07:33:00 Test Item Value Reference Range Interpretation Comments WBC X 10x3 (test code = WBC X 10x3) 8.4 3.7-10.4 N [facility] NortheastKiavburZSFUFJIWQY5819-67-13 07:33:00 Test Item Value Reference Range Interpretation Comments MCH (test code = MCH) 30.6 pg 27.0-31.0 N [facility] NortheastEdygngtXVKEFFDDEO4241-11-18 07:33:00 Test Item Value Reference Range Interpretation Comments Hct (test code = Hct) 24.2 36.0-48.0 L [facility] NortheastNikoccyHZUEFNZZAV6849-93-01 07:33:00 Test Item Value Reference Range Interpretation Comments MCHC (test code = MCHC) 33.4 32.0-36.0 N [facility] NortheastJfhuijmFDTFTTXSQQ6388-88-98 07:33:00 Test Item Value Reference Range Interpretation Comments MCV (test code = MCV) 91.5 81.0-99.0 N [facility] CenterErltwtnPVLQQXVCG4962-77-45 07:33:00 Test Item Value Reference Range Interpretation Comments eGFR (test code = eGFR) 48 [facility] CenterLptpajnOFWRRTUHC6279-63-01 07:33:00 Test Item Value Reference Range Interpretation Comments Chloride Lvl (test code = Chloride Lvl) 97 95-109 N [facility] CenterXhilmyrDVPVOZERM0387-09-59 07:33:00 Test Item Value Reference Range Interpretation Comments Potassium Lvl (test code = Potassium 3.6 3.5-5.1 N Lvl) [facility] CenterHorufwdFDRRGJBGQ0855-59-68 07:33:00 Test Item Value Reference Range Interpretation Comments CO2 (test code = CO2) 27 24-32 N [facility] CenterYumcnpiMTVUWIVOI7651-12-58 07:33:00 Test Item Value Reference Range Interpretation Comments Calcium Lvl (test code = Calcium Lvl) 8.1 8.5-10.5 L [facility] CenterObthfevQELGPDIGH0866-50-72 07:33:00 Test Item Value Reference Range Interpretation Comments Glucose Lvl (test code = Glucose Lvl) 130 70-99 H [facility] CenterOtptjxzAOBOFQLHN2855-36-93 07:33:00 Test Item Value Reference Range Interpretation Comments BUN (test code = BUN) 22 7-22 N [facility] CenterCzjortaPOYPVKLVQ2904-48-18 07:33:00 Test Item Value Reference Range Interpretation Comments Sodium Lvl (test code = Sodium Lvl) 136 135-145 N [facility] CenterGtgshjlWHDJEJDIR5522-70-42 07:33:00 Test Item Value Reference Range Interpretation Comments Creatinine Lvl (test code = Creatinine 1.1 0.5-1.4 N Lvl) [facility] CenterNasjomnSIOAJFUSW0594-07-31 07:33:00 Test Item Value Reference Range Interpretation Comments AGAP (test code = AGAP) 15.6 10.0-20.0 N [facility] NortheastItadzljRCVLKZPWOY1175-82-37 07:33:00 Test Item Value Reference Range Interpretation Comments Basophils # (test code 0.1 See_Comment N [Aut omated message] The = Basophils #) system which generated this result tra nsmitted reference range : <=0.2. The reference r andreia was not used to int erpret this result as normal/abnormal . [facility] NortheastAugjxzyMLPIQCMOCS5062-63-70 07:33:00 Test Item Value Reference Range Interpretation Comments Eosinophils # (test code 0.3 See_Comment N [A utomated message] The = Eosinophils #) system whic h generated this result tra nsmitted reference range : <=0.5. The reference r andreia was not used to int erpret this result as normal/abnormal . [facility] NortheastZadqthgPZPQDZAEZX6492-59-68 07:33:00 Test Item Value Reference Range Interpretation Comments Monocytes # (test code 0.9 See_Comment H [Aut omated message] The = Monocytes #) system which generated this result tra nsmitted reference range : <=0.8. The reference r andreia was not used to int erpret this result as normal/abnormal . [facility] NortheastSuwmlrzRBYEPTWKAS7799-62-48 07:33:00 Test Item Value Reference Range Interpretation Comments Monocytes (test code = Monocytes) 10.3 2.0-12.0 N [facility] NortheastTmkbkmnPEBIWDTVQD0415-89-37 07:33:00 Test Item Value Reference Range Interpretation Comments Lymphocytes (test code = Lymphocytes) 24.6 20.0-40.0 N [facility] NortheastLzwknlbNRJQFFRLJT7031-31-03 07:33:00 Test Item Value Reference Range Interpretation Comments Segs (test code = Segs) 61.0 45.0-75.0 N [facility] NortheastDjjlynqFKMHQWTUYR4378-81-54 07:33:00 Test Item Value Reference Range Interpretation Comments Lymphocytes # (test code = Lymphocytes 2.1 1.0-5.5 N #) [facility] NortheastKwyihgrUKBLKCFWRP3652-35-43 07:33:00 Test Item Value Reference Range Interpretation Comments Basophils (test code = 1.0 See_Comment N [Aut omated message] The Basophils) system which ge nerated this result tra nsmitted reference range : <=1.0. The reference r andreia was not used to int erpret this result as normal/abnormal . [facility] NortheastEtsxxzfVSJYYNOJFB6215-26-89 07:33:00 Test Item Value Reference Range Interpretation Comments Eosinophils (test code = 3.1 See_Comment N [A utomated message] The Eosinophils) system which ge nerated this result tra nsmitted reference range : <=4.0. The reference r andreia was not used to int erpret this result as normal/abnormal . [facility] NortheastLjozxqzMFSFNFHBPP5706-31-15 07:33:00 Test Item Value Reference Range Interpretation Comments Segs-Bands # (test code = Segs-Bands #) 5.1 1.5-8.1 [facility] NortheastUflfqueEJVQMNQJHU7315-90-97 07:33:00 Test Item Value Reference Range Interpretation Comments MPV (test code = MPV) 7.1 7.4-10.4 L [facility] NortheastHlyhurtRFNFUMSFXW8500-50-55 07:33:00 Test Item Value Reference Range Interpretation Comments Platelet (test code = Platelet) 285 133-450 N [facility]WicxhrfVNJEAADZDU3230-08-34 07:33:00 Test Item Value Reference Range Interpretation Comments RDW (test code = RDW) 14.1 11.5-14.5 N [facility] NortheastObgsreaZZAJJEEFHV7641-32-92 07:33:00 Test Item Value Reference Range Interpretation Comments Hgb (test code = Hgb) 8.1 12.0-16.0 L [facility] NortheastKucmcyyRPICUQSEOY3871-43-13 07:33:00 Test Item Value Reference Range Interpretation Comments RBC X 10x6 (test code = RBC X 10x6) 2.65 4.20-5.40 L [facility] NortheastSohhkgwMZSIAANAGX7739-51-52 07:33:00 Test Item Value Reference Range Interpretation Comments WBC X 10x3 (test code = WBC X 10x3) 8.4 3.7-10.4 N [facility] NortheastVmziuemDBJJIVVUTL1549-34-31 07:33:00 Test Item Value Reference Range Interpretation Comments MCH (test code = MCH) 30.6 pg 27.0-31.0 N [facility] NortheastUwpruyqRWYVNCRFDP6153-51-97 07:33:00 Test Item Value Reference Range Interpretation Comments Hct (test code = Hct) 24.2 36.0-48.0 L [facility] NortheastUbzaecnWOLRZFYUWL1184-07-25 07:33:00 Test Item Value Reference Range Interpretation Comments MCHC (test code = MCHC) 33.4 32.0-36.0 N [facility] NortheastHoedmnrUYMYVACGWM4591-35-62 07:33:00 Test Item Value Reference Range Interpretation Comments MCV (test code = MCV) 91.5 81.0-99.0 N [facility]LauwsdgDZDCDHKPI4414-25-90 07:33:00 Test Item Value Reference Range Interpretation Comments eGFR (test code = eGFR) 48 [facility] CenterDhycrxkAHZAERVKL4228-38-94 07:33:00 Test Item Value Reference Range Interpretation Comments Chloride Lvl (test code = Chloride Lvl) 97 95-109 N [facility] CenterOybxojyYNIJFMOSN1759-29-50 07:33:00 Test Item Value Reference Range Interpretation Comments Potassium Lvl (test code = Potassium 3.6 3.5-5.1 N Lvl) [facility] CenterDyvewpaBGACUBXVV6481-54-03 07:33:00 Test Item Value Reference Range Interpretation Comments CO2 (test code = CO2) 27 24-32 N [facility] CenterScgpthgASSGOOKPQ3231-84-75 07:33:00 Test Item Value Reference Range Interpretation Comments Calcium Lvl (test code = Calcium Lvl) 8.1 8.5-10.5 L [facility] CenterWjvjuitTSMFEPQLW2436-62-35 07:33:00 Test Item Value Reference Range Interpretation Comments Glucose Lvl (test code = Glucose Lvl) 130 70-99 H [facility] CenterQspbbcqPZFYVSEBA9368-29-60 07:33:00 Test Item Value Reference Range Interpretation Comments BUN (test code = BUN) 22 7-22 N [facility] CenterMhbbaipEXIEFZLTK3816-48-50 07:33:00 Test Item Value Reference Range Interpretation Comments Sodium Lvl (test code = Sodium Lvl) 136 135-145 N [facility] CenterErqstnkSOIIYKEPE3779-44-96 07:33:00 Test Item Value Reference Range Interpretation Comments Creatinine Lvl (test code = Creatinine 1.1 0.5-1.4 N Lvl) [facility] CenterWoaxaleDAHFQXCBV9140-72-47 07:33:00 Test Item Value Reference Range Interpretation Comments AGAP (test code = AGAP) 15.6 10.0-20.0 N [facility]GvimnmpXWHNBKUADI9317-45-43 07:33:00 Test Item Value Reference Range Interpretation Comments Basophils # (test code 0.1 See_Comment N [Aut omated message] The = Basophils #) system which generated this result tra nsmitted reference range : <=0.2. The reference r andreia was not used to int erpret this result as normal/abnormal . [facility] NortheastWrzlxffIFOFVNPYQC5010-37-90 07:33:00 Test Item Value Reference Range Interpretation Comments Eosinophils # (test code 0.3 See_Comment N [A utomated message] The = Eosinophils #) system whic h generated this result tra nsmitted reference range : <=0.5. The reference r andreia was not used to int erpret this result as normal/abnormal . [facility] NortheastZkrakjoKXESIRWSUI7387-71-16 07:33:00 Test Item Value Reference Range Interpretation Comments Monocytes # (test code 0.9 See_Comment H [Aut omated message] The = Monocytes #) system which generated this result tra nsmitted reference range : <=0.8. The reference r andreia was not used to int erpret this result as normal/abnormal . [facility] NortheastFnwlzttTRBJHNUVGW2818-51-62 07:33:00 Test Item Value Reference Range Interpretation Comments Monocytes (test code = Monocytes) 10.3 2.0-12.0 N [facility] NortheastNbubzbuPNXAIDUGYH3307-40-36 07:33:00 Test Item Value Reference Range Interpretation Comments Lymphocytes (test code = Lymphocytes) 24.6 20.0-40.0 N [facility] NortheastHsyoqoyRQAYLLXPAL9833-94-22 07:33:00 Test Item Value Reference Range Interpretation Comments Segs (test code = Segs) 61.0 45.0-75.0 N [facility] NortheastUrtkzddLVRITHNGFA7881-28-73 07:33:00 Test Item Value Reference Range Interpretation Comments Lymphocytes # (test code = Lymphocytes 2.1 1.0-5.5 N #) [facility] NortheastBvmrymjQKVLJTFHNK9470-30-10 07:33:00 Test Item Value Reference Range Interpretation Comments Basophils (test code = 1.0 See_Comment N [Aut omated message] The Basophils) system which ge nerated this result tra nsmitted reference range : <=1.0. The reference r andreia was not used to int erpret this result as normal/abnormal . [facility] NortheastGeozpckOXGTZPOSOQ4724-17-24 07:33:00 Test Item Value Reference Range Interpretation Comments Eosinophils (test code = 3.1 See_Comment N [A utomated message] The Eosinophils) system which ge nerated this result tra nsmitted reference range : <=4.0. The reference r andreia was not used to int erpret this result as normal/abnormal . [facility] NortheastOstwwafRZPIRKXMKT4092-10-21 07:33:00 Test Item Value Reference Range Interpretation Comments Segs-Bands # (test code = Segs-Bands #) 5.1 1.5-8.1 N [facility] NortheastIjeenpdYWWGOPCZMS9392-47-29 07:33:00 Test Item Value Reference Range Interpretation Comments MPV (test code = MPV) 7.1 7.4-10.4 L [facility] NortheastGfapmgyIJXTXVPKFX0509-20-75 07:33:00 Test Item Value Reference Range Interpretation Comments Platelet (test code = Platelet) 285 133-450 N [facility] NortheastChcfffrGGQJMKTYNP8606-66-10 07:33:00 Test Item Value Reference Range Interpretation Comments RDW (test code = RDW) 14.1 11.5-14.5 N [facility] NortheastTeicxdgGBFRQOYVTU7378-14-14 07:33:00 Test Item Value Reference Range Interpretation Comments Hgb (test code = Hgb) 8.1 12.0-16.0 L [facility] NortheastDvezagwURMLCVILBO3586-95-65 07:33:00 Test Item Value Reference Range Interpretation Comments RBC X 10x6 (test code = RBC X 10x6) 2.65 4.20-5.40 L [facility] NortheastApjupgzWTLEDOOQER7123-75-81 07:33:00 Test Item Value Reference Range Interpretation Comments WBC X 10x3 (test code = WBC X 10x3) 8.4 3.7-10.4 N [facility] NortheastWgcblriORIBCDZEHA4473-13-17 07:33:00 Test Item Value Reference Range Interpretation Comments MCH (test code = MCH) 30.6 pg 27.0-31.0 N [facility] NortheastPwtnoyzQKZUBOTNEI6204-56-16 07:33:00 Test Item Value Reference Range Interpretation Comments Hct (test code = Hct) 24.2 36.0-48.0 L [facility] NortheastSpsoawkKFLPHTCMUH3958-27-40 07:33:00 Test Item Value Reference Range Interpretation Comments MCHC (test code = MCHC) 33.4 32.0-36.0 N [facility] NortheastMyvaatuXVVZMMSXAC0268-43-83 07:33:00 Test Item Value Reference Range Interpretation Comments MCV (test code = MCV) 91.5 81.0-99.0 N [facility] CenterQpraeapWCFPUOJFY1712-82-04 07:33:00 Test Item Value Reference Range Interpretation Comments eGFR (test code = eGFR) 48 [facility] CenterAuybhszIETMLEHNP2200-69-90 07:33:00 Test Item Value Reference Range Interpretation Comments Chloride Lvl (test code = Chloride Lvl) 97 95-109 N [facility] CenterMwbrmkgLRNESQJOE2073-55-28 07:33:00 Test Item Value Reference Range Interpretation Comments Potassium Lvl (test code = Potassium 3.6 3.5-5.1 N Lvl) [facility] CenterLypowdpEDBBLQRWY2516-05-18 07:33:00 Test Item Value Reference Range Interpretation Comments CO2 (test code = CO2) 27 24-32 N [facility] CenterPnuymstMUFGURVJN6019-02-06 07:33:00 Test Item Value Reference Range Interpretation Comments Calcium Lvl (test code = Calcium Lvl) 8.1 8.5-10.5 L [facility] CenterZgwhzdyXLXBOXFWS1221-23-85 07:33:00 Test Item Value Reference Range Interpretation Comments Glucose Lvl (test code = Glucose Lvl) 130 70-99 H [facility] CenterMgqhjxdPEVUXPZPF4254-31-44 07:33:00 Test Item Value Reference Range Interpretation Comments BUN (test code = BUN) 22 7-22 N [facility] CenterVxmbrlyRXFBBLODZ8035-51-69 07:33:00 Test Item Value Reference Range Interpretation Comments Sodium Lvl (test code = Sodium Lvl) 136 135-145 N [facility] CenterJnwyntsGXBWVTGAF9730-01-41 07:33:00 Test Item Value Reference Range Interpretation Comments Creatinine Lvl (test code = Creatinine 1.1 0.5-1.4 N Lvl) [facility] CenterBnywffuLXQXLHXSQ3294-33-86 07:33:00 Test Item Value Reference Range Interpretation Comments AGAP (test code = AGAP) 15.6 10.0-20.0 N [facility] NortheastJhihpinJNYBXPKICK8322-85-44 07:33:00 Test Item Value Reference Range Interpretation Comments Basophils # (test code 0.1 See_Comment N [Aut omated message] The = Basophils #) system which generated this result tra nsmitted reference range : <=0.2. The reference r andreia was not used to int erpret this result as normal/abnormal . [facility] NortheastOsblsvpTWGOADZWMM9896-83-57 07:33:00 Test Item Value Reference Range Interpretation Comments Eosinophils # (test code 0.3 See_Comment N [A utomated message] The = Eosinophils #) system whic h generated this result tra nsmitted reference range : <=0.5. The reference r andreia was not used to int erpret this result as normal/abnormal . [facility] NortheastDjqvpspPLVOJLXLYA7914-52-58 07:33:00 Test Item Value Reference Range Interpretation Comments Monocytes # (test code 0.9 See_Comment H [Aut omated message] The = Monocytes #) system which generated this result tra nsmitted reference range : <=0.8. The reference r andreia was not used to int erpret this result as normal/abnormal . [facility] NortheastTxrtajpCWHNGJQOSM3835-60-14 07:33:00 Test Item Value Reference Range Interpretation Comments Monocytes (test code = Monocytes) 10.3 2.0-12.0 N [facility] NortheastHutrwnfZRMKRAOWEN1755-46-95 07:33:00 Test Item Value Reference Range Interpretation Comments Lymphocytes (test code = Lymphocytes) 24.6 20.0-40.0 N [facility] NortheastZrdfsgtSBBFUMTKQB0827-72-09 07:33:00 Test Item Value Reference Range Interpretation Comments Segs (test code = Segs) 61.0 45.0-75.0 N [facility] NortheastByoigczIFMCKONEKI8703-09-92 07:33:00 Test Item Value Reference Range Interpretation Comments Lymphocytes # (test code = Lymphocytes 2.1 1.0-5.5 N #) [facility] NortheastLaqttedDLLQGTWAIE2206-16-57 07:33:00 Test Item Value Reference Range Interpretation Comments Basophils (test code = 1.0 See_Comment N [Aut omated message] The Basophils) system which ge nerated this result tra nsmitted reference range : <=1.0. The reference r andreia was not used to int erpret this result as normal/abnormal . [facility] NortheastTdtoxymVMEDNVAKLD4037-33-45 07:33:00 Test Item Value Reference Range Interpretation Comments Eosinophils (test code = 3.1 See_Comment N [A utomated message] The Eosinophils) system which ge nerated this result tra nsmitted reference range : <=4.0. The reference r andreia was not used to int erpret this result as normal/abnormal . [facility] NortheastEgzczutFNVHWLHXPB3522-89-30 07:33:00 Test Item Value Reference Range Interpretation Comments Segs-Bands # (test code = Segs-Bands #) 5.1 1.5-8.1 N [facility] NortheastYsxnxezDKIHERCOPN9656-60-49 07:33:00 Test Item Value Reference Range Interpretation Comments MPV (test code = MPV) 7.1 7.4-10.4 L [facility] NortheastMjjoobpJUCIDCSALY7431-73-14 07:33:00 Test Item Value Reference Range Interpretation Comments Platelet (test code = Platelet) 285 133-450 N [facility] NortheastHsyzsduFWKHHJYBBX2192-89-93 07:33:00 Test Item Value Reference Range Interpretation Comments RDW (test code = RDW) 14.1 11.5-14.5 N [facility] NortheastVdlkxenVJXTMWMXNM0968-70-85 07:33:00 Test Item Value Reference Range Interpretation Comments Hgb (test code = Hgb) 8.1 12.0-16.0 L [facility] NortheastLszmnkqWNIKLFTLDR8919-47-48 07:33:00 Test Item Value Reference Range Interpretation Comments RBC X 10x6 (test code = RBC X 10x6) 2.65 4.20-5.40 L [facility] NortheastVdhteadFMWORDVLJG8475-24-82 07:33:00 Test Item Value Reference Range Interpretation Comments WBC X 10x3 (test code = WBC X 10x3) 8.4 3.7-10.4 N [facility] NortheastPqorzzkQNLEESWQDV7696-25-38 07:33:00 Test Item Value Reference Range Interpretation Comments MCH (test code = MCH) 30.6 pg 27.0-31.0 N [facility] NortheastZeysnytDGMMFSFHQY1863-32-90 07:33:00 Test Item Value Reference Range Interpretation Comments Hct (test code = Hct) 24.2 36.0-48.0 L [facility] NortheastAikcergXJTXSNFTTW4995-16-04 07:33:00 Test Item Value Reference Range Interpretation Comments MCHC (test code = MCHC) 33.4 32.0-36.0 N [facility] NortheastZjbkcauZRDPXJJIQF1662-38-58 07:33:00 Test Item Value Reference Range Interpretation Comments MCV (test code = MCV) 91.5 81.0-99.0 N [facility] CenterLgjabxkZXQXFRKEF4411-95-55 07:33:00 Test Item Value Reference Range Interpretation Comments eGFR (test code = eGFR) 48 [facility] CenterKhzifzlMNRESUYIE2552-88-83 07:33:00 Test Item Value Reference Range Interpretation Comments Chloride Lvl (test code = Chloride Lvl) 97 95-109 N [facility] CenterYuvhwmqUIOIOAHHK2906-89-86 07:33:00 Test Item Value Reference Range Interpretation Comments Potassium Lvl (test code = Potassium 3.6 3.5-5.1 N Lvl) [facility] CenterNcizqeoEZNTYSWQM4435-63-40 07:33:00 Test Item Value Reference Range Interpretation Comments CO2 (test code = CO2) 27 24-32 N [facility] CenterEzeappmFMSGJPXHO8147-50-19 07:33:00 Test Item Value Reference Range Interpretation Comments Calcium Lvl (test code = Calcium Lvl) 8.1 8.5-10.5 L [facility] CenterMcpvjlcFKUBRRMQN1715-08-98 07:33:00 Test Item Value Reference Range Interpretation Comments Glucose Lvl (test code = Glucose Lvl) 130 70-99 H [facility] CenterEhxayewEORHQODPU9703-97-17 07:33:00 Test Item Value Reference Range Interpretation Comments BUN (test code = BUN) 22 7-22 N [facility] CenterDjfchlzNOWBMTBHV1164-57-16 07:33:00 Test Item Value Reference Range Interpretation Comments Sodium Lvl (test code = Sodium Lvl) 136 135-145 N [facility] CenterJhedcwwAJBVMGYJS5589-81-50 07:33:00 Test Item Value Reference Range Interpretation Comments Creatinine Lvl (test code = Creatinine 1.1 0.5-1.4 N Lvl) [facility] CenterYjupkyrRBELVFNEU5989-36-18 07:33:00 Test Item Value Reference Range Interpretation Comments AGAP (test code = AGAP) 15.6 10.0-20.0 N [facility] NortheastEmxuncnZKZOHPIFZX7197-61-77 07:33:00 Test Item Value Reference Range Interpretation Comments Basophils # (test code = Basophils #) 0.1 <=0.2 N [facility] NortheastZflajaqGADXAAWQCU6722-19-32 07:33:00 Test Item Value Reference Range Interpretation Comments Eosinophils # (test code = Eosinophils 0.3 <=0.5 N #) [facility] NortheastBggxlfhHGPSMZWNQZ9431-06-30 07:33:00 Test Item Value Reference Range Interpretation Comments Monocytes # (test code = Monocytes #) 0.9 <=0.8 H [facility] NortheastMqywdhbKUSOAURVTM3077-44-10 07:33:00 Test Item Value Reference Range Interpretation Comments Monocytes (test code = Monocytes) 10.3 2.0-12.0 N [facility] NortheastDxlmrrhZZMMDRTLFD2490-07-38 07:33:00 Test Item Value Reference Range Interpretation Comments Lymphocytes (test code = Lymphocytes) 24.6 20.0-40.0 N [facility] NortheastAevinbaYLKCEEKHQU8760-00-09 07:33:00 Test Item Value Reference Range Interpretation Comments Segs (test code = Segs) 61.0 45.0-75.0 N [facility] NortheastTwykgqwBLHOOYIOAX8730-81-58 07:33:00 Test Item Value Reference Range Interpretation Comments Lymphocytes # (test code = Lymphocytes 2.1 1.0-5.5 N #) [facility] NortheastUhoaaesTPDTKSZAZB4313-78-12 07:33:00 Test Item Value Reference Range Interpretation Comments Basophils (test code = Basophils) 1.0 <=1.0 N [facility] NortheastOtiorsoVESZTCTCBJ5456-58-30 07:33:00 Test Item Value Reference Range Interpretation Comments Eosinophils (test code = Eosinophils) 3.1 <=4.0 N [facility] NortheastQdhgjboZWRABMJJQZ7340-22-14 07:33:00 Test Item Value Reference Range Interpretation Comments Segs-Bands # (test code = Segs-Bands #) 5.1 1.5-8.1 N [facility] NortheastIenzmuiZAVTJAQSVE2224-59-87 07:33:00 Test Item Value Reference Range Interpretation Comments MPV (test code = MPV) 7.1 7.4-10.4 L [facility] NortheastTuyqhbySSTNCPGBBN5614-70-57 07:33:00 Test Item Value Reference Range Interpretation Comments Platelet (test code = Platelet) 285 133-450 N [facility] NortheastUmjttbjQZYYWIRNTX5258-07-83 07:33:00 Test Item Value Reference Range Interpretation Comments RDW (test code = RDW) 14.1 11.5-14.5 N [facility] NortheastGybenqjTZKHKUCKTK4063-86-69 07:33:00 Test Item Value Reference Range Interpretation Comments Hgb (test code = Hgb) 8.1 12.0-16.0 L [facility] NortheastIezhzajXXJZXDNGRE6449-64-29 07:33:00 Test Item Value Reference Range Interpretation Comments RBC X 10x6 (test code = RBC X 10x6) 2.65 4.20-5.40 L [facility] NortheastKzetclaVUQEUQKLGK1679-62-91 07:33:00 Test Item Value Reference Range Interpretation Comments WBC X 10x3 (test code = WBC X 10x3) 8.4 3.7-10.4 N [facility] NortheastJykpkjySODINAAEPE2496-36-24 07:33:00 Test Item Value Reference Range Interpretation Comments MCH (test code = MCH) 30.6 pg 27.0-31.0 N [facility] NortheastYadkpueIWKECXFGZG5192-19-78 07:33:00 Test Item Value Reference Range Interpretation Comments Hct (test code = Hct) 24.2 36.0-48.0 L [facility] NortheastUrxwvumGIMZIROSQS2615-83-26 07:33:00 Test Item Value Reference Range Interpretation Comments MCHC (test code = MCHC) 33.4 32.0-36.0 N [facility] NortheastKbpdxncCRMNWNTBBT7882-73-35 07:33:00 Test Item Value Reference Range Interpretation Comments MCV (test code = MCV) 91.5 81.0-99.0 N [facility] CenterPdvrwhjTXUSICBYO5243-48-05 07:33:00 Test Item Value Reference Range Interpretation Comments eGFR (test code = eGFR) 48 [facility] CenterVpgatzzRSGVRUMBJ6626-65-21 07:33:00 Test Item Value Reference Range Interpretation Comments Chloride Lvl (test code = Chloride Lvl) 97 95-109 N [facility] CenterQdldcnyECTYLCNKF8125-90-70 07:33:00 Test Item Value Reference Range Interpretation Comments Potassium Lvl (test code = Potassium 3.6 3.5-5.1 N Lvl) [facility] CenterRoigkvuHZKRZUAOO6189-50-81 07:33:00 Test Item Value Reference Range Interpretation Comments CO2 (test code = CO2) 27 24-32 N [facility] CenterBkeavnsCWBLDQTBD9410-02-06 07:33:00 Test Item Value Reference Range Interpretation Comments Calcium Lvl (test code = Calcium Lvl) 8.1 8.5-10.5 L [facility] CenterUpnkbwoTJQNNXQVO1593-03-82 07:33:00 Test Item Value Reference Range Interpretation Comments Glucose Lvl (test code = Glucose Lvl) 130 70-99 H [facility] CenterHsirwnuCAAACJHAO0270-29-59 07:33:00 Test Item Value Reference Range Interpretation Comments BUN (test code = BUN) 22 7-22 N [facility] CenterLqgzuraSRHJWRYGZ1133-45-66 07:33:00 Test Item Value Reference Range Interpretation Comments Sodium Lvl (test code = Sodium Lvl) 136 135-145 N [facility] CenterFfpwajiSKRWJPVKJ0794-13-05 07:33:00 Test Item Value Reference Range Interpretation Comments Creatinine Lvl (test code = Creatinine 1.1 0.5-1.4 N Lvl) [facility] CenterKmeobdmDCZCLXEQI2029-18-82 07:33:00 Test Item Value Reference Range Interpretation Comments AGAP (test code = AGAP) 15.6 10.0-20.0 N [facility] NortheastRvmxdwrPYHNIJTDGS0544-48-42 07:33:00 Test Item Value Reference Range Interpretation Comments Basophils # (test code 0.1 See_Comment N [Aut omated message] The = Basophils #) system which generated this result tra nsmitted reference range : <=0.2. The reference r andreia was not used to int erpret this result as normal/abnormal . [facility] NortheastSifxmziQDPIRWALHS5053-64-85 07:33:00 Test Item Value Reference Range Interpretation Comments Eosinophils # (test code 0.3 See_Comment N [A utomated message] The = Eosinophils #) system whic h generated this result tra nsmitted reference range : <=0.5. The reference r andreia was not used to int erpret this result as normal/abnormal . [facility] NortheastIbtphxkHZAWRHTNSV2640-51-47 07:33:00 Test Item Value Reference Range Interpretation Comments Monocytes # (test code 0.9 See_Comment H [Aut omated message] The = Monocytes #) system which generated this result tra nsmitted reference range : <=0.8. The reference r andreia was not used to int erpret this result as normal/abnormal . [facility] NortheastZnvteisZFNQAPIBUC1017-10-80 07:33:00 Test Item Value Reference Range Interpretation Comments Monocytes (test code = Monocytes) 10.3 2.0-12.0 N [facility] NortheastYeptbwyTKADUKLZIA5473-77-99 07:33:00 Test Item Value Reference Range Interpretation Comments Lymphocytes (test code = Lymphocytes) 24.6 20.0-40.0 N [facility] NortheastAqmxptdGJUTWKHGYS1080-69-20 07:33:00 Test Item Value Reference Range Interpretation Comments Segs (test code = Segs) 61.0 45.0-75.0 N [facility] NortheastFshmoymHMLIBFYUNY7262-96-53 07:33:00 Test Item Value Reference Range Interpretation Comments Lymphocytes # (test code = Lymphocytes 2.1 1.0-5.5 N #) [facility] NortheastSlqotdjUZMFUJDTRP4398-05-45 07:33:00 Test Item Value Reference Range Interpretation Comments Basophils (test code = 1.0 See_Comment N [Aut omated message] The Basophils) system which ge nerated this result tra nsmitted reference range : <=1.0. The reference r andreia was not used to int erpret this result as normal/abnormal . [facility] NortheastQiljvskIPCBQDUDMH8802-41-94 07:33:00 Test Item Value Reference Range Interpretation Comments Eosinophils (test code = 3.1 See_Comment N [A utomated message] The Eosinophils) system which ge nerated this result tra nsmitted reference range : <=4.0. The reference r andreia was not used to int erpret this result as normal/abnormal . [facility] NortheastDjanvhgGNNTITSTWV3069-38-62 07:33:00 Test Item Value Reference Range Interpretation Comments Segs-Bands # (test code = Segs-Bands #) 5.1 1.5-8.1 N [facility] NortheastHygxsbyEMGJCCFZKF2062-12-29 07:33:00 Test Item Value Reference Range Interpretation Comments MPV (test code = MPV) 7.1 7.4-10.4 L [facility] NortheastAnczzykGKPDDOCZDL4201-88-71 07:33:00 Test Item Value Reference Range Interpretation Comments Platelet (test code = Platelet) 285 133-450 N [facility] NortheastWxpnuerXAHSZHLCQL3241-06-13 07:33:00 Test Item Value Reference Range Interpretation Comments RDW (test code = RDW) 14.1 11.5-14.5 N [facility] NortheastFhaibtcSBNMVQTADD7866-69-16 07:33:00 Test Item Value Reference Range Interpretation Comments Hgb (test code = Hgb) 8.1 12.0-16.0 L [facility] NortheastUasqsfvDUJPREWNKS1728-12-41 07:33:00 Test Item Value Reference Range Interpretation Comments RBC X 10x6 (test code = RBC X 10x6) 2.65 4.20-5.40 L [facility] NortheastAhohtyfDYMWVHEFUF4099-36-37 07:33:00 Test Item Value Reference Range Interpretation Comments WBC X 10x3 (test code = WBC X 10x3) 8.4 3.7-10.4 N [facility] NortheastOjnmlsjMJBFBVNMYP6017-20-33 07:33:00 Test Item Value Reference Range Interpretation Comments MCH (test code = MCH) 30.6 pg 27.0-31.0 N [facility] NortheastTnovwcbDQNDBTBSQV9627-08-92 07:33:00 Test Item Value Reference Range Interpretation Comments Hct (test code = Hct) 24.2 36.0-48.0 L [facility] NortheastGwpirurYIJCWONURW1329-82-12 07:33:00 Test Item Value Reference Range Interpretation Comments MCHC (test code = MCHC) 33.4 32.0-36.0 N [facility] NortheastNnakmimPZHBPOGGIH9464-88-59 07:33:00 Test Item Value Reference Range Interpretation Comments MCV (test code = MCV) 91.5 81.0-99.0 [facility]GfwydzaTSAYPPTBU5279-28-85 07:33:00 Test Item Value Reference Range Interpretation Comments eGFR (test code = eGFR) 48 [facility] CenterFjjsdohWYNISIUIP3101-38-67 07:33:00 Test Item Value Reference Range Interpretation Comments Chloride Lvl (test code = Chloride Lvl) 97 95-109 N [facility] CenterQaurblzJMWQSELKO2127-62-86 07:33:00 Test Item Value Reference Range Interpretation Comments Potassium Lvl (test code = Potassium 3.6 3.5-5.1 N Lvl) [facility] CenterUihguveANPRUDSSE9438-77-46 07:33:00 Test Item Value Reference Range Interpretation Comments CO2 (test code = CO2) 27 24-32 N [facility] CenterXtrfxpoTLFKFXERB6023-24-82 07:33:00 Test Item Value Reference Range Interpretation Comments Calcium Lvl (test code = Calcium Lvl) 8.1 8.5-10.5 L [facility] CenterEevrdyfLQOWQSPVE9498-42-62 07:33:00 Test Item Value Reference Range Interpretation Comments Glucose Lvl (test code = Glucose Lvl) 130 70-99 H [facility] CenterKychkjcCLMIWIBUW8038-60-48 07:33:00 Test Item Value Reference Range Interpretation Comments BUN (test code = BUN) 22 7-22 N [facility] CenterNjjooduTNWFJOBGR0318-13-20 07:33:00 Test Item Value Reference Range Interpretation Comments Sodium Lvl (test code = Sodium Lvl) 136 135-145 N [facility] CenterOqjuenpEKLGCDCLC0964-31-24 07:33:00 Test Item Value Reference Range Interpretation Comments Creatinine Lvl (test code = Creatinine 1.1 0.5-1.4 N Lvl) [facility] CenterPnndbucYRDIMVFEQ2336-26-16 07:33:00 Test Item Value Reference Range Interpretation Comments AGAP (test code = AGAP) 15.6 10.0-20.0 N [facility]ZsrbydtWGGYEXZLTY0481-97-84 07:33:00 Test Item Value Reference Range Interpretation Comments Basophils # (test code 0.1 See_Comment N [Aut omated message] The = Basophils #) system which generated this result tra nsmitted reference range : <=0.2. The reference r andreia was not used to int erpret this result as normal/abnormal . [facility] NortheastDeiidfsKIITXDTIMQ6939-57-69 07:33:00 Test Item Value Reference Range Interpretation Comments Eosinophils # (test code 0.3 See_Comment N [A utomated message] The = Eosinophils #) system whic h generated this result tra nsmitted reference range : <=0.5. The reference r andreia was not used to int erpret this result as normal/abnormal . [facility] NortheastXmrcpzyTQSFKLPHPC2531-22-65 07:33:00 Test Item Value Reference Range Interpretation Comments Monocytes # (test code 0.9 See_Comment H [Aut omated message] The = Monocytes #) system which generated this result tra nsmitted reference range : <=0.8. The reference r andreia was not used to int erpret this result as normal/abnormal . [facility] NortheastCiitxxeXMGRSBNEPK8225-86-05 07:33:00 Test Item Value Reference Range Interpretation Comments Monocytes (test code = Monocytes) 10.3 2.0-12.0 N [facility] NortheastZfwagthIWQMEEDWNA7871-69-23 07:33:00 Test Item Value Reference Range Interpretation Comments Lymphocytes (test code = Lymphocytes) 24.6 20.0-40.0 N [facility] NortheastKeikgkvNUAGHTWMCD3396-83-87 07:33:00 Test Item Value Reference Range Interpretation Comments Segs (test code = Segs) 61.0 45.0-75.0 N [facility] NortheastGkbafgbRNLBCFZEHK2335-25-14 07:33:00 Test Item Value Reference Range Interpretation Comments Lymphocytes # (test code = Lymphocytes 2.1 1.0-5.5 N #) [facility] NortheastXjwyaunEMVDHBDZOE4720-05-13 07:33:00 Test Item Value Reference Range Interpretation Comments Basophils (test code = 1.0 See_Comment N [Aut omated message] The Basophils) system which ge nerated this result tra nsmitted reference range : <=1.0. The reference r andreia was not used to int erpret this result as normal/abnormal . [facility] NortheastZngntnrHTDOHRNVHC3342-78-87 07:33:00 Test Item Value Reference Range Interpretation Comments Eosinophils (test code = 3.1 See_Comment N [A utomated message] The Eosinophils) system which ge nerated this result tra nsmitted reference range : <=4.0. The reference r andreia was not used to int erpret this result as normal/abnormal . [facility] NortheastGcpnrpoNZUOBYZMMM1585-02-36 07:33:00 Test Item Value Reference Range Interpretation Comments Segs-Bands # (test code = Segs-Bands #) 5.1 1.5-8.1 N [facility] NortheastVitkrgxYSZCLZKGVP3330-98-36 07:33:00 Test Item Value Reference Range Interpretation Comments MPV (test code = MPV) 7.1 7.4-10.4 L [facility] NortheastPacsjaiPMVTNUZTEV9860-39-75 07:33:00 Test Item Value Reference Range Interpretation Comments Platelet (test code = Platelet) 285 133-450 N [facility] NortheastObtydxqWFJHRHSCDF0528-11-85 07:33:00 Test Item Value Reference Range Interpretation Comments RDW (test code = RDW) 14.1 11.5-14.5 N [facility] NortheastGtznqrnTSLITAEBIK9158-92-50 07:33:00 Test Item Value Reference Range Interpretation Comments Hgb (test code = Hgb) 8.1 12.0-16.0 L [facility] NortheastDgaezbbJHHPAJVQJQ3273-05-92 07:33:00 Test Item Value Reference Range Interpretation Comments RBC X 10x6 (test code = RBC X 10x6) 2.65 4.20-5.40 L [facility] NortheastFqwfryoNRUREIASYJ1414-59-48 07:33:00 Test Item Value Reference Range Interpretation Comments WBC X 10x3 (test code = WBC X 10x3) 8.4 3.7-10.4 N [facility] NortheastGeztkwdUNWCQNLDUZ8030-18-91 07:33:00 Test Item Value Reference Range Interpretation Comments MCH (test code = MCH) 30.6 pg 27.0-31.0 N [facility] NortheastJrffcvrSIOMATQDZR8047-85-49 07:33:00 Test Item Value Reference Range Interpretation Comments Hct (test code = Hct) 24.2 36.0-48.0 L [facility] NortheastZrnognfFRINICCYGV0486-90-81 07:33:00 Test Item Value Reference Range Interpretation Comments MCHC (test code = MCHC) 33.4 32.0-36.0 N [facility] NortheastUmndmliNSKHAQIRYU1026-55-33 07:33:00 Test Item Value Reference Range Interpretation Comments MCV (test code = MCV) 91.5 81.0-99.0 N [facility] CenterZjtycakZJKAFIJGR4376-43-70 07:33:00 Test Item Value Reference Range Interpretation Comments eGFR (test code = eGFR) 48 [facility] CenterAfycobgXRZDBYHKI0126-47-91 07:33:00 Test Item Value Reference Range Interpretation Comments Chloride Lvl (test code = Chloride Lvl) 97 95-109 N [facility] CenterMfijwylBCGATBMQT8621-23-84 07:33:00 Test Item Value Reference Range Interpretation Comments Potassium Lvl (test code = Potassium 3.6 3.5-5.1 N Lvl) [facility] CenterMymeigdESNGEKPVX9928-19-74 07:33:00 Test Item Value Reference Range Interpretation Comments CO2 (test code = CO2) 27 24-32 N [facility] CenterBpsvwbtJGMLXHYPL8038-38-75 07:33:00 Test Item Value Reference Range Interpretation Comments Calcium Lvl (test code = Calcium Lvl) 8.1 8.5-10.5 L [facility] CenterRbetiqyUDMLYOCJJ0798-33-27 07:33:00 Test Item Value Reference Range Interpretation Comments Glucose Lvl (test code = Glucose Lvl) 130 70-99 H [facility] CenterZbkfcjqNJVHRQOHU6047-96-35 07:33:00 Test Item Value Reference Range Interpretation Comments BUN (test code = BUN) 22 7-22 N [facility] CenterJvpmceeOUETZAISR1141-35-10 07:33:00 Test Item Value Reference Range Interpretation Comments Sodium Lvl (test code = Sodium Lvl) 136 135-145 N [facility] CenterNlhrubyYJURQJJRW0569-31-47 07:33:00 Test Item Value Reference Range Interpretation Comments Creatinine Lvl (test code = Creatinine 1.1 0.5-1.4 N Lvl) [facility] CenterDafnryuXMEYQDCBU7628-35-50 07:33:00 Test Item Value Reference Range Interpretation Comments AGAP (test code = AGAP) 15.6 10.0-20.0 N [facility] NortheastXaqawcpFUXLBDBWJG5050-63-24 07:33:00 Test Item Value Reference Range Interpretation Comments Basophils # (test code 0.1 See_Comment N [Aut omated message] The = Basophils #) system which generated this result tra nsmitted reference range : <=0.2. The reference r andreia was not used to int erpret this result as normal/abnormal . [facility] NortheastNzczluaCJDJKJIOFH6784-19-66 07:33:00 Test Item Value Reference Range Interpretation Comments Eosinophils # (test code 0.3 See_Comment N [A utomated message] The = Eosinophils #) system whic h generated this result tra nsmitted reference range : <=0.5. The reference r andreia was not used to int erpret this result as normal/abnormal . [facility] NortheastXugabhwZKOXLAGLLA8707-41-68 07:33:00 Test Item Value Reference Range Interpretation Comments Monocytes # (test code 0.9 See_Comment H [Aut omated message] The = Monocytes #) system which generated this result tra nsmitted reference range : <=0.8. The reference r andreia was not used to int erpret this result as normal/abnormal . [facility] NortheastXryciojHOPUWNJMQZ0862-18-56 07:33:00 Test Item Value Reference Range Interpretation Comments Monocytes (test code = Monocytes) 10.3 2.0-12.0 N [facility] NortheastVoeymnwDLABWEXWKF0166-27-34 07:33:00 Test Item Value Reference Range Interpretation Comments Lymphocytes (test code = Lymphocytes) 24.6 20.0-40.0 N [facility] NortheastDlytctcCAFHZOKMOL1743-25-51 07:33:00 Test Item Value Reference Range Interpretation Comments Segs (test code = Segs) 61.0 45.0-75.0 N [facility] NortheastAshvobkKSALVTATXB3096-87-29 07:33:00 Test Item Value Reference Range Interpretation Comments Lymphocytes # (test code = Lymphocytes 2.1 1.0-5.5 N #) [facility] NortheastFpiqiiwZCBDYFQAKK7300-75-98 07:33:00 Test Item Value Reference Range Interpretation Comments Basophils (test code = 1.0 See_Comment N [Aut omated message] The Basophils) system which ge nerated this result tra nsmitted reference range : <=1.0. The reference r andreia was not used to int erpret this result as normal/abnormal . [facility] NortheastPxaaafnLPAHIKSDEI5742-36-87 07:33:00 Test Item Value Reference Range Interpretation Comments Eosinophils (test code = 3.1 See_Comment N [A utomated message] The Eosinophils) system which ge nerated this result tra nsmitted reference range : <=4.0. The reference r andreia was not used to int erpret this result as normal/abnormal . [facility] NortheastVwicazoGJSMLVJHZZ7342-53-38 07:33:00 Test Item Value Reference Range Interpretation Comments Segs-Bands # (test code = Segs-Bands #) 5.1 1.5-8.1 N [facility] NortheastWwuvlppWLVLIBEXHD0509-54-56 07:33:00 Test Item Value Reference Range Interpretation Comments MPV (test code = MPV) 7.1 7.4-10.4 L [facility] NortheastGuiyfmhYKJADOQLFY9301-21-47 07:33:00 Test Item Value Reference Range Interpretation Comments Platelet (test code = Platelet) 285 133-450 N [facility] NortheastJlauiiyUFEHHMPEJP5331-71-80 07:33:00 Test Item Value Reference Range Interpretation Comments RDW (test code = RDW) 14.1 11.5-14.5 N [facility] NortheastStzplebJVBFQTLYKF7581-69-17 07:33:00 Test Item Value Reference Range Interpretation Comments Hgb (test code = Hgb) 8.1 12.0-16.0 L [facility] NortheastRujyxldSQBWZSFITX0920-72-25 07:33:00 Test Item Value Reference Range Interpretation Comments RBC X 10x6 (test code = RBC X 10x6) 2.65 4.20-5.40 L [facility] NortheastHyemtvyJZWTBYIWYC8362-23-15 07:33:00 Test Item Value Reference Range Interpretation Comments WBC X 10x3 (test code = WBC X 10x3) 8.4 3.7-10.4 N [facility] NortheastLoeztuzHYYOWBCIEZ1060-87-90 07:33:00 Test Item Value Reference Range Interpretation Comments MCH (test code = MCH) 30.6 pg 27.0-31.0 N [facility] NortheastKntbjnrXMXRQWSFGL1173-14-56 07:33:00 Test Item Value Reference Range Interpretation Comments Hct (test code = Hct) 24.2 36.0-48.0 L [facility] NortheastEqpoxaeSCAIRRITHH3540-94-27 07:33:00 Test Item Value Reference Range Interpretation Comments MCHC (test code = MCHC) 33.4 32.0-36.0 N [facility] NortheastZbkhyedWSFRKLOTBJ4234-80-61 07:33:00 Test Item Value Reference Range Interpretation Comments MCV (test code = MCV) 91.5 81.0-99.0 N [facility] CenterUtbvlsbNXIVYGDFR0622-78-88 07:33:00 Test Item Value Reference Range Interpretation Comments eGFR (test code = eGFR) 48 [facility] CenterJfdpdaeLLVHSRTEE7807-22-21 07:33:00 Test Item Value Reference Range Interpretation Comments Chloride Lvl (test code = Chloride Lvl) 97 95-109 N [facility] CenterXafdctgASPCRNKZX2539-37-69 07:33:00 Test Item Value Reference Range Interpretation Comments Potassium Lvl (test code = Potassium 3.6 3.5-5.1 N Lvl) [facility] CenterVvrrgcgGUKYWFXOT5428-53-75 07:33:00 Test Item Value Reference Range Interpretation Comments CO2 (test code = CO2) 27 24-32 N [facility] CenterEyfdyjjXWPSTDYWU2825-13-27 07:33:00 Test Item Value Reference Range Interpretation Comments Calcium Lvl (test code = Calcium Lvl) 8.1 8.5-10.5 L [facility] CenterIwoxlleDGJXBQTXO6844-05-87 07:33:00 Test Item Value Reference Range Interpretation Comments Glucose Lvl (test code = Glucose Lvl) 130 70-99 H [facility] CenterUwlntxhCDPQRZGCI1415-63-70 07:33:00 Test Item Value Reference Range Interpretation Comments BUN (test code = BUN) 22 7-22 N [facility] CenterVokwffkSDIMQEAXH0339-20-91 07:33:00 Test Item Value Reference Range Interpretation Comments Sodium Lvl (test code = Sodium Lvl) 136 135-145 N [facility] CenterMeudxrjGIYIFPWNB8233-07-51 07:33:00 Test Item Value Reference Range Interpretation Comments Creatinine Lvl (test code = Creatinine 1.1 0.5-1.4 N Lvl) [facility] CenterWpoiglsXAXDYYGSO9456-67-86 07:33:00 Test Item Value Reference Range Interpretation Comments AGAP (test code = AGAP) 15.6 10.0-20.0 N [facility] NortheastEsueyqpRACIQAEKJS3261-07-46 07:33:00 Test Item Value Reference Range Interpretation Comments Basophils # (test code 0.1 See_Comment N [Aut omated message] The = Basophils #) system which generated this result tra nsmitted reference range : <=0.2. The reference r andreia was not used to int erpret this result as normal/abnormal . [facility] NortheastZikcrxoNZNGTKCEZN0089-51-53 07:33:00 Test Item Value Reference Range Interpretation Comments Eosinophils # (test code 0.3 See_Comment N [A utomated message] The = Eosinophils #) system whic h generated this result tra nsmitted reference range : <=0.5. The reference r andreia was not used to int erpret this result as normal/abnormal . [facility] NortheastQawzlspIJNSTZYWJX1644-93-32 07:33:00 Test Item Value Reference Range Interpretation Comments Monocytes # (test code 0.9 See_Comment H [Aut omated message] The = Monocytes #) system which generated this result tra nsmitted reference range : <=0.8. The reference r andreia was not used to int erpret this result as normal/abnormal . [facility] NortheastYdlfdaeOEMMNRXYXE1048-91-56 07:33:00 Test Item Value Reference Range Interpretation Comments Monocytes (test code = Monocytes) 10.3 2.0-12.0 N [facility] NortheastMijvodaWAULZIWKJG3631-46-54 07:33:00 Test Item Value Reference Range Interpretation Comments Lymphocytes (test code = Lymphocytes) 24.6 20.0-40.0 N [facility] NortheastTktrcmmYSHAKOZMSB7729-48-10 07:33:00 Test Item Value Reference Range Interpretation Comments Segs (test code = Segs) 61.0 45.0-75.0 N [facility] NortheastOwrwcefOTHHWXBPPG9910-45-70 07:33:00 Test Item Value Reference Range Interpretation Comments Lymphocytes # (test code = Lymphocytes 2.1 1.0-5.5 N #) [facility] NortheastWgmywnvJVMIVVNHDR9176-40-23 07:33:00 Test Item Value Reference Range Interpretation Comments Basophils (test code = 1.0 See_Comment N [Aut omated message] The Basophils) system which ge nerated this result tra nsmitted reference range : <=1.0. The reference r andreia was not used to int erpret this result as normal/abnormal . [facility] NortheastRqlsvcnPWEPHBQGUC6053-61-90 07:33:00 Test Item Value Reference Range Interpretation Comments Eosinophils (test code = 3.1 See_Comment N [A utomated message] The Eosinophils) system which ge nerated this result tra nsmitted reference range : <=4.0. The reference r andreia was not used to int erpret this result as normal/abnormal . [facility] NortheastUmmrsymSETJCSBUAQ8286-46-55 07:33:00 Test Item Value Reference Range Interpretation Comments Segs-Bands # (test code = Segs-Bands #) 5.1 1.5-8.1 N [facility] NortheastNdckhejTMFCNTJWRS6274-60-87 07:33:00 Test Item Value Reference Range Interpretation Comments MPV (test code = MPV) 7.1 7.4-10.4 L [facility] NortheastMxbjaigCGHTZBLEPZ1769-87-86 07:33:00 Test Item Value Reference Range Interpretation Comments Platelet (test code = Platelet) 285 133-450 N [facility] NortheastJyltnthREXFIDBQYK1202-81-66 07:33:00 Test Item Value Reference Range Interpretation Comments RDW (test code = RDW) 14.1 11.5-14.5 N [facility] NortheastFoobhomJCVLACEAWV0960-10-33 07:33:00 Test Item Value Reference Range Interpretation Comments Hgb (test code = Hgb) 8.1 12.0-16.0 L [facility] NortheastZftvfulBXMUZYHZFA7566-81-77 07:33:00 Test Item Value Reference Range Interpretation Comments RBC X 10x6 (test code = RBC X 10x6) 2.65 4.20-5.40 L [facility] NortheastFqvwvweKOMOSPFGHD6652-57-68 07:33:00 Test Item Value Reference Range Interpretation Comments WBC X 10x3 (test code = WBC X 10x3) 8.4 3.7-10.4 N [facility] NortheastMpljtqwOYXIAPGAEA7038-82-91 07:33:00 Test Item Value Reference Range Interpretation Comments MCH (test code = MCH) 30.6 pg 27.0-31.0 N [facility] NortheastMublqmcCJWZMXXZWW1463-85-06 07:33:00 Test Item Value Reference Range Interpretation Comments Hct (test code = Hct) 24.2 36.0-48.0 L [facility] NortheastWvxsveyYICSPWHXGU7625-51-15 07:33:00 Test Item Value Reference Range Interpretation Comments MCHC (test code = MCHC) 33.4 32.0-36.0 N [facility] NortheastFdvhtfdVUFTCBDGJC7638-90-93 07:33:00 Test Item Value Reference Range Interpretation Comments MCV (test code = MCV) 91.5 81.0-99.0 N [facility] CenterZdkxnrlOGXAKECVQ8738-80-35 07:33:00 Test Item Value Reference Range Interpretation Comments eGFR (test code = eGFR) 48 [facility] CenterZzmxvinLYFTDTQZZ4262-39-62 07:33:00 Test Item Value Reference Range Interpretation Comments Chloride Lvl (test code = Chloride Lvl) 97 95-109 N [facility] CenterUzygztrFTYOOTLGT4625-01-91 07:33:00 Test Item Value Reference Range Interpretation Comments Potassium Lvl (test code = Potassium 3.6 3.5-5.1 N Lvl) [facility] CenterZkxwuhxYJHTNUJRU4271-39-19 07:33:00 Test Item Value Reference Range Interpretation Comments CO2 (test code = CO2) 27 24-32 N [facility] CenterEdzabjjGRZXUUKWW8199-87-64 07:33:00 Test Item Value Reference Range Interpretation Comments Calcium Lvl (test code = Calcium Lvl) 8.1 8.5-10.5 L [facility] CenterHtljumsEXCAPLORH1390-17-47 07:33:00 Test Item Value Reference Range Interpretation Comments Glucose Lvl (test code = Glucose Lvl) 130 70-99 H [facility] CenterBlzvomfWGGPVSTOY7627-98-45 07:33:00 Test Item Value Reference Range Interpretation Comments BUN (test code = BUN) 22 7-22 N [facility] CenterUhyaicfSJAAFYPSI6574-53-33 07:33:00 Test Item Value Reference Range Interpretation Comments Sodium Lvl (test code = Sodium Lvl) 136 135-145 N [facility] CenterOeqmqjjQBIQOORCY8727-18-91 07:33:00 Test Item Value Reference Range Interpretation Comments Creatinine Lvl (test code = Creatinine 1.1 0.5-1.4 N Lvl) [facility] CenterAhmerzkOQJMWKRZK6705-01-60 07:33:00 Test Item Value Reference Range Interpretation Comments AGAP (test code = AGAP) 15.6 10.0-20.0 N [facility] NortheastAbioeqpQOFIDVWVOE6933-97-05 07:33:00 Test Item Value Reference Range Interpretation Comments Basophils # (test code 0.1 See_Comment N [Aut omated message] The = Basophils #) system which generated this result tra nsmitted reference range : <=0.2. The reference r andreia was not used to int erpret this result as normal/abnormal . [facility] NortheastWqkjmhmHPRQJBXTXQ8443-96-46 07:33:00 Test Item Value Reference Range Interpretation Comments Eosinophils # (test code 0.3 See_Comment N [A utomated message] The = Eosinophils #) system whic h generated this result tra nsmitted reference range : <=0.5. The reference r andreia was not used to int erpret this result as normal/abnormal . [facility] NortheastSmkqycdKIYKBMVXBT8489-22-42 07:33:00 Test Item Value Reference Range Interpretation Comments Monocytes # (test code 0.9 See_Comment H [Aut omated message] The = Monocytes #) system which generated this result tra nsmitted reference range : <=0.8. The reference r andreia was not used to int erpret this result as normal/abnormal . [facility] NortheastQjtqmbuUIZAONNVOT1298-83-64 07:33:00 Test Item Value Reference Range Interpretation Comments Monocytes (test code = Monocytes) 10.3 2.0-12.0 N [facility] NortheastOhysexhJDUIKVIRIC1318-75-87 07:33:00 Test Item Value Reference Range Interpretation Comments Lymphocytes (test code = Lymphocytes) 24.6 20.0-40.0 N [facility] NortheastLwbjtmmALIZIIQJPA0709-87-20 07:33:00 Test Item Value Reference Range Interpretation Comments Segs (test code = Segs) 61.0 45.0-75.0 N [facility] NortheastDgjvnuzKQYTSHATQU5524-16-96 07:33:00 Test Item Value Reference Range Interpretation Comments Lymphocytes # (test code = Lymphocytes 2.1 1.0-5.5 N #) [facility] NortheastRccnufzUHIRMKCKQS4413-38-57 07:33:00 Test Item Value Reference Range Interpretation Comments Basophils (test code = 1.0 See_Comment N [Aut omated message] The Basophils) system which ge nerated this result tra nsmitted reference range : <=1.0. The reference r andreia was not used to int erpret this result as normal/abnormal . [facility] NortheastLyouycmXSAHHXIUYE1989-63-49 07:33:00 Test Item Value Reference Range Interpretation Comments Eosinophils (test code = 3.1 See_Comment N [A utomated message] The Eosinophils) system which ge nerated this result tra nsmitted reference range : <=4.0. The reference r andreia was not used to int erpret this result as normal/abnormal . [facility] NortheastHzjtaojACNAZQHFDJ7568-17-95 07:33:00 Test Item Value Reference Range Interpretation Comments Segs-Bands # (test code = Segs-Bands #) 5.1 1.5-8.1 N [facility] NortheastWlbwdytTHAUYFIOZK0441-41-61 07:33:00 Test Item Value Reference Range Interpretation Comments MPV (test code = MPV) 7.1 7.4-10.4 L [facility] NortheastSuurheiYBVSMNPYAN8118-94-90 07:33:00 Test Item Value Reference Range Interpretation Comments Platelet (test code = Platelet) 285 133-450 N [facility] NortheastRxcdkahKVDZHPOFDW7112-90-31 07:33:00 Test Item Value Reference Range Interpretation Comments RDW (test code = RDW) 14.1 11.5-14.5 N [facility] NortheastExsqvswQGBGDIMVSV1583-20-94 07:33:00 Test Item Value Reference Range Interpretation Comments Hgb (test code = Hgb) 8.1 12.0-16.0 L [facility] NortheastWerepeoRBXZDRZHBH9516-20-53 07:33:00 Test Item Value Reference Range Interpretation Comments RBC X 10x6 (test code = RBC X 10x6) 2.65 4.20-5.40 L [facility] NortheastYzqqfhqRMWUSOJWOU9107-06-16 07:33:00 Test Item Value Reference Range Interpretation Comments WBC X 10x3 (test code = WBC X 10x3) 8.4 3.7-10.4 N [facility] NortheastXvvqyjtVAPYVZNNGB8654-09-79 07:33:00 Test Item Value Reference Range Interpretation Comments MCH (test code = MCH) 30.6 pg 27.0-31.0 N [facility] NortheastLujxjvmNOHETLODUP6508-71-49 07:33:00 Test Item Value Reference Range Interpretation Comments Hct (test code = Hct) 24.2 36.0-48.0 L [facility] NortheastKqvisowJAFDVUEILR4403-60-11 07:33:00 Test Item Value Reference Range Interpretation Comments MCHC (test code = MCHC) 33.4 32.0-36.0 N [facility] NortheastViymizzRGYQSYSLHT1511-45-25 07:33:00 Test Item Value Reference Range Interpretation Comments MCV (test code = MCV) 91.5 81.0-99.0 N [facility] CenterDmnfwwxOUYQFDQKF6957-96-82 07:33:00 Test Item Value Reference Range Interpretation Comments eGFR (test code = eGFR) 48 [facility] CenterGvcywyrZFTCNOJPR4745-52-80 07:33:00 Test Item Value Reference Range Interpretation Comments Chloride Lvl (test code = Chloride Lvl) 97 95-109 N [facility] CenterDsgzjeiQRLMFNLMJ2488-31-83 07:33:00 Test Item Value Reference Range Interpretation Comments Potassium Lvl (test code = Potassium 3.6 3.5-5.1 N Lvl) [facility] CenterRuszpecSVKWNEZIB7589-84-32 07:33:00 Test Item Value Reference Range Interpretation Comments CO2 (test code = CO2) 27 24-32 N [facility] CenterUjgbxqgJCJAUHRDS3639-25-56 07:33:00 Test Item Value Reference Range Interpretation Comments Calcium Lvl (test code = Calcium Lvl) 8.1 8.5-10.5 L [facility] CenterHxxgaspTWHMTPSBF1416-89-06 07:33:00 Test Item Value Reference Range Interpretation Comments Glucose Lvl (test code = Glucose Lvl) 130 70-99 H [facility] CenterVmtrbxkNHMAOEJBF3286-52-43 07:33:00 Test Item Value Reference Range Interpretation Comments BUN (test code = BUN) 22 7-22 N [facility] CenterOzhepemYKKJUHTSU2477-01-33 07:33:00 Test Item Value Reference Range Interpretation Comments Sodium Lvl (test code = Sodium Lvl) 136 135-145 N [facility] CenterPmcergqZLOBFLUOZ2863-49-47 07:33:00 Test Item Value Reference Range Interpretation Comments Creatinine Lvl (test code = Creatinine 1.1 0.5-1.4 N Lvl) [facility] CenterVlisqunHXCXOKBFM7739-28-16 07:33:00 Test Item Value Reference Range Interpretation Comments AGAP (test code = AGAP) 15.6 10.0-20.0 N [facility]ZldifdnYHROIXKRBH1895-24-22 07:33:00 Test Item Value Reference Range Interpretation Comments Basophils # (test code 0.1 See_Comment N [Aut omated message] The = Basophils #) system which generated this result tra nsmitted reference range : <=0.2. The reference r andreia was not used to int erpret this result as normal/abnormal . [facility] NortheastCkbomxyTMKOGCPTRY6673-14-42 07:33:00 Test Item Value Reference Range Interpretation Comments Eosinophils # (test code 0.3 See_Comment N [A utomated message] The = Eosinophils #) system whic h generated this result tra nsmitted reference range : <=0.5. The reference r andreia was not used to int erpret this result as normal/abnormal . [facility] NortheastIemneapHJKJZKMAJD1179-04-94 07:33:00 Test Item Value Reference Range Interpretation Comments Monocytes # (test code 0.9 See_Comment H [Aut omated message] The = Monocytes #) system which generated this result tra nsmitted reference range : <=0.8. The reference r andreia was not used to int erpret this result as normal/abnormal . [facility] NortheastLnkynhuHAJVFAWPGE2272-24-03 07:33:00 Test Item Value Reference Range Interpretation Comments Monocytes (test code = Monocytes) 10.3 2.0-12.0 N [facility] NortheastXklbcabFHLIZWOEHP0258-53-95 07:33:00 Test Item Value Reference Range Interpretation Comments Lymphocytes (test code = Lymphocytes) 24.6 20.0-40.0 N [facility] NortheastSfiezglDVRPAHHHTV5713-82-77 07:33:00 Test Item Value Reference Range Interpretation Comments Segs (test code = Segs) 61.0 45.0-75.0 N [facility] NortheastDcwkeueQEKEQURKUT9119-63-89 07:33:00 Test Item Value Reference Range Interpretation Comments Lymphocytes # (test code = Lymphocytes 2.1 1.0-5.5 N #) [facility] NortheastAnldxoeMPDEHMXFER3992-43-84 07:33:00 Test Item Value Reference Range Interpretation Comments Basophils (test code = 1.0 See_Comment N [Aut omated message] The Basophils) system which ge nerated this result tra nsmitted reference range : <=1.0. The reference r andreia was not used to int erpret this result as normal/abnormal . [facility] NortheastZhqwuhgCLJPZNYHDN8749-08-34 07:33:00 Test Item Value Reference Range Interpretation Comments Eosinophils (test code = 3.1 See_Comment N [A utomated message] The Eosinophils) system which ge nerated this result tra nsmitted reference range : <=4.0. The reference r andreia was not used to int erpret this result as normal/abnormal . [facility] NortheastRkvbuinJVDDLCOZZL5311-18-01 07:33:00 Test Item Value Reference Range Interpretation Comments Segs-Bands # (test code = Segs-Bands #) 5.1 1.5-8.1 N [facility] NortheastHnwservUSTJZLEKVU6461-21-81 07:33:00 Test Item Value Reference Range Interpretation Comments MPV (test code = MPV) 7.1 7.4-10.4 L [facility] NortheastGqthqyyMVMPSGRYLJ0452-63-94 07:33:00 Test Item Value Reference Range Interpretation Comments Platelet (test code = Platelet) 285 133-450 N [facility] NortheastDlntikwEIYULAXSJX6884-09-43 07:33:00 Test Item Value Reference Range Interpretation Comments RDW (test code = RDW) 14.1 11.5-14.5 N [facility] NortheastUpnyaqiOZMPVMAQSS7379-17-33 07:33:00 Test Item Value Reference Range Interpretation Comments Hgb (test code = Hgb) 8.1 12.0-16.0 L [facility] NortheastRonhapjPUCHBLOHUZ3141-38-78 07:33:00 Test Item Value Reference Range Interpretation Comments RBC X 10x6 (test code = RBC X 10x6) 2.65 4.20-5.40 L [facility] NortheastGrwibnmIYDPFQYIYD6819-11-63 07:33:00 Test Item Value Reference Range Interpretation Comments WBC X 10x3 (test code = WBC X 10x3) 8.4 3.7-10.4 N [facility] NortheastLbpfougGSRYDZAQKJ8201-30-37 07:33:00 Test Item Value Reference Range Interpretation Comments MCH (test code = MCH) 30.6 pg 27.0-31.0 N [facility] NortheastMyojoxoCEKZRZUKQR1934 07:33:00 Test Item Value Reference Range Interpretation Comments Hct (test code = Hct) 24.2 36.0-48.0 L [facility] NortheastShsoaxeRQSORROSWR8645-78-59 07:33:00 Test Item Value Reference Range Interpretation Comments MCHC (test code = MCHC) 33.4 32.0-36.0 N [facility] NortheastWttjmpdIDLCMYIYIF3825-44-11 07:33:00 Test Item Value Reference Range Interpretation Comments MCV (test code = MCV) 91.5 81.0-99.0 N [facility] CenterNcsygduZHFJIOEUS4807-63-96 07:33:00 Test Item Value Reference Range Interpretation Comments eGFR (test code = eGFR) 48 [facility] CenterGzguyhwHCOCAMHOK1093-15-38 07:33:00 Test Item Value Reference Range Interpretation Comments Chloride Lvl (test code = Chloride Lvl) 97 95-109 N [facility] CenterZiqoswsVBDVYEAEH5982-12-35 07:33:00 Test Item Value Reference Range Interpretation Comments Potassium Lvl (test code = Potassium 3.6 3.5-5.1 N Lvl) [facility] CenterYpupixnZMTVANRXB5107-26-27 07:33:00 Test Item Value Reference Range Interpretation Comments CO2 (test code = CO2) 27 24-32 N [facility] CenterSerxrhyNZCJCWUOH9360-96-99 07:33:00 Test Item Value Reference Range Interpretation Comments Calcium Lvl (test code = Calcium Lvl) 8.1 8.5-10.5 L [facility] CenterHdzaanqVDEHCKVQV9234-36-92 07:33:00 Test Item Value Reference Range Interpretation Comments Glucose Lvl (test code = Glucose Lvl) 130 70-99 H [facility] CenterPnocmkbJCTHKPMXV5362-76-55 07:33:00 Test Item Value Reference Range Interpretation Comments BUN (test code = BUN) 22 7-22 N [facility] CenterRdwioifSXTEPDWKF2654-66-47 07:33:00 Test Item Value Reference Range Interpretation Comments Sodium Lvl (test code = Sodium Lvl) 136 135-145 N [facility] CenterAotlmolPOZLSQIPT8989-57-69 07:33:00 Test Item Value Reference Range Interpretation Comments Creatinine Lvl (test code = Creatinine 1.1 0.5-1.4 N Lvl) [facility] CenterEieyqehXRFMHUEEQ9862-46-13 07:33:00 Test Item Value Reference Range Interpretation Comments AGAP (test code = AGAP) 15.6 10.0-20.0 N [facility] NortheastXrwrlztRRFOVERGOC0724-31-11 07:33:00 Test Item Value Reference Range Interpretation Comments Basophils # (test code 0.1 See_Comment N [Aut omated message] The = Basophils #) system which generated this result tra nsmitted reference range : <=0.2. The reference r andreia was not used to int erpret this result as normal/abnormal . [facility] NortheastJkcxlpgPTYTSXOISR8513-45-77 07:33:00 Test Item Value Reference Range Interpretation Comments Eosinophils # (test code 0.3 See_Comment N [A utomated message] The = Eosinophils #) system whic h generated this result tra nsmitted reference range : <=0.5. The reference r andreia was not used to int erpret this result as normal/abnormal . [facility] NortheastWogabbhDLIEZHWXTM0123-60-28 07:33:00 Test Item Value Reference Range Interpretation Comments Monocytes # (test code 0.9 See_Comment H [Aut omated message] The = Monocytes #) system which generated this result tra nsmitted reference range : <=0.8. The reference r andreia was not used to int erpret this result as normal/abnormal . [facility] NortheastFiuadbgHMSMXCYNPU8815-87-67 07:33:00 Test Item Value Reference Range Interpretation Comments Monocytes (test code = Monocytes) 10.3 2.0-12.0 N [facility] NortheastXtnwvxiIIBESSCJEW7164-44-31 07:33:00 Test Item Value Reference Range Interpretation Comments Lymphocytes (test code = Lymphocytes) 24.6 20.0-40.0 N [facility] NortheastVscsslqEUZCBXPWMF2635-55-98 07:33:00 Test Item Value Reference Range Interpretation Comments Segs (test code = Segs) 61.0 45.0-75.0 N [facility] NortheastOgrpmnfQHOPZPTPUT4737-47-92 07:33:00 Test Item Value Reference Range Interpretation Comments Lymphocytes # (test code = Lymphocytes 2.1 1.0-5.5 N #) [facility] NortheastCsftgdbBGXTUNZUGX3128-64-03 07:33:00 Test Item Value Reference Range Interpretation Comments Basophils (test code = 1.0 See_Comment N [Aut omated message] The Basophils) system which ge nerated this result tra nsmitted reference range : <=1.0. The reference r andreia was not used to int erpret this result as normal/abnormal . [facility] NortheastMjsanyyZNKITIBIYA5795-48-61 07:33:00 Test Item Value Reference Range Interpretation Comments Eosinophils (test code = 3.1 See_Comment N [A utomated message] The Eosinophils) system which ge nerated this result tra nsmitted reference range : <=4.0. The reference r andreia was not used to int erpret this result as normal/abnormal . [facility] NortheastOvpaajiWLBUJYFGBK9286-33-00 07:33:00 Test Item Value Reference Range Interpretation Comments Segs-Bands # (test code = Segs-Bands #) 5.1 1.5-8.1 N [facility] NortheastPqplghgLHRNPVKFRF9748-40-56 07:33:00 Test Item Value Reference Range Interpretation Comments MPV (test code = MPV) 7.1 7.4-10.4 L [facility] CenterMgxflwvJIUGLRGSU8188-81-45 07:33:00 Test Item Value Reference Range Interpretation Comments eGFR (test code = eGFR) 48 [facility] CenterGhrmmnfHDGXTMCHW2950-93-38 07:33:00 Test Item Value Reference Range Interpretation Comments Chloride Lvl (test code = Chloride Lvl) 97 95-109 N [facility] CenterGccwyvqKAXMYHWCU9978-07-83 07:33:00 Test Item Value Reference Range Interpretation Comments Potassium Lvl (test code = Potassium 3.6 3.5-5.1 N Lvl) [facility] NortheastVjweonyEXOWQZRITK6194-71-19 07:33:00 Test Item Value Reference Range Interpretation Comments Platelet (test code = Platelet) 285 133-450 N [facility] CenterDzyfnylGCRSJZKUO3541-98-53 07:33:00 Test Item Value Reference Range Interpretation Comments CO2 (test code = CO2) 27 24-32 N [facility] CenterCbxifihGLEYRPRBB5818-45-15 07:33:00 Test Item Value Reference Range Interpretation Comments Calcium Lvl (test code = Calcium Lvl) 8.1 8.5-10.5 L [facility] CenterDfuqjrdCKTLKADVT0567-68-93 07:33:00 Test Item Value Reference Range Interpretation Comments Glucose Lvl (test code = Glucose Lvl) 130 70-99 H [facility] CenterTmycwpuACPBNVAVT2595-77-71 07:33:00 Test Item Value Reference Range Interpretation Comments BUN (test code = BUN) 22 7-22 N [facility] CenterMppuzdlGLCQLMQSD1098-30-60 07:33:00 Test Item Value Reference Range Interpretation Comments Sodium Lvl (test code = Sodium Lvl) 136 135-145 N [facility] CenterIqfnieeYQVNGVMYL5934-93-14 07:33:00 Test Item Value Reference Range Interpretation Comments Creatinine Lvl (test code = Creatinine 1.1 0.5-1.4 N Lvl) [facility] CenterGhmoirmYDLUQMANO2085-73-97 07:33:00 Test Item Value Reference Range Interpretation Comments AGAP (test code = AGAP) 15.6 10.0-20.0 N [facility] NortheastNzyryqaJFWUXGFBCR7369-11-20 07:33:00 Test Item Value Reference Range Interpretation Comments Basophils # (test code 0.1 See_Comment N [Aut omated message] The = Basophils #) system which generated this result tra nsmitted reference range : <=0.2. The reference r andreia was not used to int erpret this result as normal/abnormal . [facility] NortheastPfjdbyqJXFFPFJDZW2376-40-42 07:33:00 Test Item Value Reference Range Interpretation Comments Eosinophils # (test code 0.3 See_Comment N [A utomated message] The = Eosinophils #) system whic h generated this result tra nsmitted reference range : <=0.5. The reference r andreia was not used to int erpret this result as normal/abnormal . [facility] NortheastZejyozdOZHUSECKOR9088-13-34 07:33:00 Test Item Value Reference Range Interpretation Comments Monocytes # (test code 0.9 See_Comment H [Aut omated message] The = Monocytes #) system which generated this result tra nsmitted reference range : <=0.8. The reference r andreia was not used to int erpret this result as normal/abnormal . [facility] NortheastDgtxoawJGUBMFLVKB8584-39-44 07:33:00 Test Item Value Reference Range Interpretation Comments RDW (test code = RDW) 14.1 11.5-14.5 N [facility] NortheastOlqyigmLDLTXNQWEQ9436-65-83 07:33:00 Test Item Value Reference Range Interpretation Comments Monocytes (test code = Monocytes) 10.3 2.0-12.0 N [facility] NortheastGuroxhrKJEEUKGYGC0104-55-36 07:33:00 Test Item Value Reference Range Interpretation Comments Lymphocytes (test code = Lymphocytes) 24.6 20.0-40.0 N [facility] NortheastAjcnpznQMWTFVZVOJ7303-92-18 07:33:00 Test Item Value Reference Range Interpretation Comments Segs (test code = Segs) 61.0 45.0-75.0 N [facility] NortheastRzddydcGONFUEEMJU7359-95-17 07:33:00 Test Item Value Reference Range Interpretation Comments Lymphocytes # (test code = Lymphocytes 2.1 1.0-5.5 N #) [facility] NortheastBbplxhdMGTAHGSNWJ1910-45-53 07:33:00 Test Item Value Reference Range Interpretation Comments Basophils (test code = 1.0 See_Comment N [Aut omated message] The Basophils) system which ge nerated this result tra nsmitted reference range : <=1.0. The reference r andreia was not used to int erpret this result as normal/abnormal . [facility] NortheastHssljtdGEHHEOYDMQ2973-17-80 07:33:00 Test Item Value Reference Range Interpretation Comments Eosinophils (test code = 3.1 See_Comment N [A utomated message] The Eosinophils) system which ge nerated this result tra nsmitted reference range : <=4.0. The reference r andreia was not used to int erpret this result as normal/abnormal . [facility] NortheastYzvrfooNAIMOZWCRS6858-86-19 07:33:00 Test Item Value Reference Range Interpretation Comments Segs-Bands # (test code = Segs-Bands #) 5.1 1.5-8.1 N [facility] NortheastYszofndTBPKMIFYKJ2900-06-28 07:33:00 Test Item Value Reference Range Interpretation Comments MPV (test code = MPV) 7.1 7.4-10.4 L [facility] NortheastKdeodipHPOIDHLUWM7270-84-09 07:33:00 Test Item Value Reference Range Interpretation Comments Platelet (test code = Platelet) 285 133-450 N [facility] NortheastCgxtnrvDAJRUKUFXE6891-67-92 07:33:00 Test Item Value Reference Range Interpretation Comments RDW (test code = RDW) 14.1 11.5-14.5 N [facility] NortheastNwbvmzjODNYCQHJMF8733-24-39 07:33:00 Test Item Value Reference Range Interpretation Comments Hgb (test code = Hgb) 8.1 12.0-16.0 L [facility] NortheastRzhlayxLAJALQDPHW2286-37-98 07:33:00 Test Item Value Reference Range Interpretation Comments Hgb (test code = Hgb) 8.1 12.0-16.0 L [facility] NortheastUkfbcliPPEUPZJUIA6963-59-89 07:33:00 Test Item Value Reference Range Interpretation Comments RBC X 10x6 (test code = RBC X 10x6) 2.65 4.20-5.40 L [facility] NortheastKfhatewVXQTUAGPYP4545-68-52 07:33:00 Test Item Value Reference Range Interpretation Comments WBC X 10x3 (test code = WBC X 10x3) 8.4 3.7-10.4 N [facility] NortheastGtkiwjrRWRWZVNWEM4875-84-36 07:33:00 Test Item Value Reference Range Interpretation Comments MCH (test code = MCH) 30.6 pg 27.0-31.0 N [facility] NortheastKppvjrrOVVXVQASPJ0134-75-22 07:33:00 Test Item Value Reference Range Interpretation Comments Hct (test code = Hct) 24.2 36.0-48.0 L [facility] NortheastCeyttyaQRLGEBGAZS0209-61-60 07:33:00 Test Item Value Reference Range Interpretation Comments MCHC (test code = MCHC) 33.4 32.0-36.0 N [facility] NortheastNfumakyMOAXMOEWNP0557-04-61 07:33:00 Test Item Value Reference Range Interpretation Comments MCV (test code = MCV) 91.5 81.0-99.0 N [facility] NortheastMolhzmeXBKGPXVXRU0765-96-98 07:33:00 Test Item Value Reference Range Interpretation Comments RBC X 10x6 (test code = RBC X 10x6) 2.65 4.20-5.40 L [facility] NortheastBhzryioCFFJGEHBRF3856-90-02 07:33:00 Test Item Value Reference Range Interpretation Comments WBC X 10x3 (test code = WBC X 10x3) 8.4 3.7-10.4 N [facility] NortheastPqkuyhzZFWLRQSECV6520-68-85 07:33:00 Test Item Value Reference Range Interpretation Comments MCH (test code = MCH) 30.6 pg 27.0-31.0 N [facility] NortheastQvsqlalFBPKIZNDTG3512-67-27 07:33:00 Test Item Value Reference Range Interpretation Comments Hct (test code = Hct) 24.2 36.0-48.0 L [facility] NortheastRtztoegDQEREVJVFM5987-13-50 07:33:00 Test Item Value Reference Range Interpretation Comments MCHC (test code = MCHC) 33.4 32.0-36.0 N [facility] NortheastHyleufjDLZLNSFLVL5776-88-90 07:33:00 Test Item Value Reference Range Interpretation Comments MCV (test code = MCV) 91.5 81.0-99.0 N [facility] CenterXrazihtRXKUGEFUH7377-64-16 07:33:00 Test Item Value Reference Range Interpretation Comments eGFR (test code = eGFR) 48 [facility] CenterJpktocdTWHXBFKWS6725-94-15 07:33:00 Test Item Value Reference Range Interpretation Comments Chloride Lvl (test code = Chloride Lvl) 97 95-109 N [facility] CenterZliedrkYXYTJECXG5530-54-31 07:33:00 Test Item Value Reference Range Interpretation Comments Potassium Lvl (test code = Potassium 3.6 3.5-5.1 N Lvl) [facility] CenterMwwdohlKDFRKDWYW7016-00-20 07:33:00 Test Item Value Reference Range Interpretation Comments CO2 (test code = CO2) 27 24-32 N [facility] CenterYczreygRISZVQNXK1446-30-80 07:33:00 Test Item Value Reference Range Interpretation Comments Calcium Lvl (test code = Calcium Lvl) 8.1 8.5-10.5 L [facility] CenterKiouznrLMBEUGHTO6233-46-12 07:33:00 Test Item Value Reference Range Interpretation Comments Glucose Lvl (test code = Glucose Lvl) 130 70-99 H [facility] CenterZrgqccoKJMSGIHTP6471-20-82 07:33:00 Test Item Value Reference Range Interpretation Comments BUN (test code = BUN) 22 7-22 N [facility] CenterEstwsweQACUKBJXW2980-96-89 07:33:00 Test Item Value Reference Range Interpretation Comments Sodium Lvl (test code = Sodium Lvl) 136 135-145 N [facility] CenterEiohqyhCZKDNFOYC9665-57-20 07:33:00 Test Item Value Reference Range Interpretation Comments Creatinine Lvl (test code = Creatinine 1.1 0.5-1.4 N Lvl) [facility] CenterUskgjqySTADQGGYR4741-62-97 07:33:00 Test Item Value Reference Range Interpretation Comments AGAP (test code = AGAP) 15.6 10.0-20.0 N [facility] NortheastRaepgcrTUABEYGLRK3626-75-65 07:33:00 Test Item Value Reference Range Interpretation Comments Basophils # (test code 0.1 See_Comment N [Aut omated message] The = Basophils #) system which generated this result tra nsmitted reference range : <=0.2. The reference r andreia was not used to int erpret this result as normal/abnormal . [facility] NortheastTlslykgKAXYOJYFQP8283-81-27 07:33:00 Test Item Value Reference Range Interpretation Comments Eosinophils # (test code 0.3 See_Comment N [A utomated message] The = Eosinophils #) system [facility] h generated this result tra nsmitted reference range : <=0.5. The reference r andreia was not used to int erpret this result as normal/abnormal . [facility] NortheastToqljknLPFAEEJBYZ7701-76-64 07:33:00 Test Item Value Reference Range Interpretation Comments Monocytes # (test code 0.9 See_Comment H [Aut omated message] The = Monocytes #) system which generated this result tra nsmitted reference range : <=0.8. The reference r andreia was not used to int erpret this result as normal/abnormal . [facility] NortheastOewfgxoRUMMIZRTXU7091-00-46 07:33:00 Test Item Value Reference Range Interpretation Comments Monocytes (test code = Monocytes) 10.3 2.0-12.0 N [facility] NortheastDosiugePJNEQSSVDJ0272-16-21 07:33:00 Test Item Value Reference Range Interpretation Comments Lymphocytes (test code = Lymphocytes) 24.6 20.0-40.0 N [facility] NortheastAsimcnuTHBSYXTHXN9480-37-60 07:33:00 Test Item Value Reference Range Interpretation Comments Segs (test code = Segs) 61.0 45.0-75.0 N [facility] NortheastXwzlzrjFAPLMGJCIH5523-90-58 07:33:00 Test Item Value Reference Range Interpretation Comments Lymphocytes # (test code = Lymphocytes 2.1 1.0-5.5 N #) [facility] NortheastEenkphvZWDLLDHUKO5457-80-25 07:33:00 Test Item Value Reference Range Interpretation Comments Basophils (test code = 1.0 See_Comment N [Aut omated message] The Basophils) system which ge nerated this result tra nsmitted reference range : <=1.0. The reference r andreia was not used to int erpret this result as normal/abnormal . [facility] NortheastCobttxtJETVGBPZGO1678-74-39 07:33:00 Test Item Value Reference Range Interpretation Comments Eosinophils (test code = 3.1 See_Comment N [A utomated message] The Eosinophils) system which ge nerated this result tra nsmitted reference range : <=4.0. The reference r andreia was not used to int erpret this result as normal/abnormal . [facility] NortheastRnzhdnhFONLJYSMWG6757-94-15 07:33:00 Test Item Value Reference Range Interpretation Comments Segs-Bands # (test code = Segs-Bands #) 5.1 1.5-8.1 N [facility] NortheastByioqdtLOKISIACEE6254-42-83 07:33:00 Test Item Value Reference Range Interpretation Comments MPV (test code = MPV) 7.1 7.4-10.4 L [facility] NortheastDsvntpsVVLRGLPUGB0247-66-74 07:33:00 Test Item Value Reference Range Interpretation Comments Platelet (test code = Platelet) 285 133-450 N [facility] NortheastVhiuwqxPPWYLHPCSR6492-49-75 07:33:00 Test Item Value Reference Range Interpretation Comments RDW (test code = RDW) 14.1 11.5-14.5 N [facility] NortheastYkazxmhCIDFZOLKQK0207-90-81 07:33:00 Test Item Value Reference Range Interpretation Comments Hgb (test code = Hgb) 8.1 12.0-16.0 L [facility] NortheastJkfafqvPWKAQNUIEP5827-87-10 07:33:00 Test Item Value Reference Range Interpretation Comments RBC X 10x6 (test code = RBC X 10x6) 2.65 4.20-5.40 L [facility] NortheastVumykxcCEPZVOLHAE1211-90-35 07:33:00 Test Item Value Reference Range Interpretation Comments WBC X 10x3 (test code = WBC X 10x3) 8.4 3.7-10.4 N [facility] NortheastWvboyxyXLTUFMLTYO7917-17-29 07:33:00 Test Item Value Reference Range Interpretation Comments MCH (test code = MCH) 30.6 pg 27.0-31.0 N [facility] NortheastKpnejtqXHKPTNGAJL6673-47-25 07:33:00 Test Item Value Reference Range Interpretation Comments Hct (test code = Hct) 24.2 36.0-48.0 L [facility] NortheastLfckzxmPATIZWQMXH7897-13-98 07:33:00 Test Item Value Reference Range Interpretation Comments MCHC (test code = MCHC) 33.4 32.0-36.0 N [facility] NortheastGhqgatiUKXSZEJBTZ5371-57-59 07:33:00 Test Item Value Reference Range Interpretation Comments MCV (test code = MCV) 91.5 81.0-99.0 N [facility] CenterOcmvlzaAIXMSTZUG1623-04-70 07:33:00 Test Item Value Reference Range Interpretation Comments eGFR (test code = eGFR) 48 [facility] CenterGwybnsgSVZDQEWBV2359-31-99 07:33:00 Test Item Value Reference Range Interpretation Comments Chloride Lvl (test code = Chloride Lvl) 97 95-109 N [facility] CenterZihkwuxRAXOONNKR6334-40-66 07:33:00 Test Item Value Reference Range Interpretation Comments Potassium Lvl (test code = Potassium 3.6 3.5-5.1 N Lvl) [facility] CenterQwwzmaoEHZQDQURE2484-36-81 07:33:00 Test Item Value Reference Range Interpretation Comments CO2 (test code = CO2) 27 24-32 N [facility] [facility]fkyivFPPPNTQRO0473-55-87 07:33:00 Test Item Value Reference Range Interpretation Comments Calcium Lvl (test code = Calcium Lvl) 8.1 8.5-10.5 [facility]GkypvhuOKJXWVDOK8753-55-14 07:33:00 Test Item Value Reference Range Interpretation Comments Glucose Lvl (test code = Glucose Lvl) 130 70-99 H [facility] CenterFsldvleRDEPISPVK4749-74-29 07:33:00 Test Item Value Reference Range Interpretation Comments BUN (test code = BUN) 22 7-22 N [facility] CenterIxkgfycBOGSYRJTM9810-91-19 07:33:00 Test Item Value Reference Range Interpretation Comments Sodium Lvl (test code = Sodium Lvl) 136 135-145 N [facility] CenterPqhexpnKDIMCHODA1471-94-85 07:33:00 Test Item Value Reference Range Interpretation Comments Creatinine Lvl (test code = Creatinine 1.1 0.5-1.4 N Lvl) [facility] CenterHpjugqfRXQKWVEYP0712-46-92 07:33:00 Test Item Value Reference Range Interpretation Comments AGAP (test code = AGAP) 15.6 10.0-20.0 [facility]zyyiwpXTCOMIYDEY4296-85-22 07:33:00 Test Item Value Reference Range Interpretation Comments Basophils # (test code 0.1 See_Comment N [Aut omated message] The = Basophils #) system which generated this result tra nsmitted reference range : <=0.2. The reference r andreia was not used to int erpret this result as normal/abnormal . [facility]SyecjncMNEBAPMLVN3028-29-29 07:33:00 Test Item Value Reference Range Interpretation Comments Eosinophils # (test code 0.3 See_Comment N [A utomated message] The = Eosinophils #) system whic h generated this result tra nsmitted reference range : <=0.5. The reference r andreia was not used to int erpret this result as normal/abnormal . [facility] NortheastWygxivjUGMAGGNSRM5818-17-00 07:33:00 Test Item Value Reference Range Interpretation Comments Monocytes # (test code 0.9 See_Comment H [Aut omated message] The = Monocytes #) system which generated this result tra nsmitted reference range : <=0.8. The reference r andreia was not used to int erpret this result as normal/abnormal . [facility] NortheastKlqzonhNVUYGAFWWH8209-15-31 07:33:00 Test Item Value Reference Range Interpretation Comments Monocytes (test code = Monocytes) 10.3 2.0-12.0 N [facility] NortheastVlxgemuIDPOQTZWLQ5314-35-51 07:33:00 Test Item Value Reference Range Interpretation Comments Lymphocytes (test code = Lymphocytes) 24.6 20.0-40.0 N [facility] NortheastXjbffxbGCFTZADWEC9445-33-67 07:33:00 Test Item Value Reference Range Interpretation Comments Segs (test code = Segs) 61.0 45.0-75.0 N [facility] NortheastVlzuelyZATKMPQMNV9458-58-32 07:33:00 Test Item Value Reference Range Interpretation Comments Lymphocytes # (test code = Lymphocytes 2.1 1.0-5.5 N #) [facility] NortheastHrhjsirIUNYHYDNXY6731-18-68 07:33:00 Test Item Value Reference Range Interpretation Comments Basophils (test code = 1.0 See_Comment N [Aut omated message] The Basophils) system which ge nerated this result tra nsmitted reference range : <=1.0. The reference r andreia was not used to int erpret this result as normal/abnormal . [facility] NortheastGehddekXFHBGJILNC0046-84-21 07:33:00 Test Item Value Reference Range Interpretation Comments Eosinophils (test code = 3.1 See_Comment N [A utomated message] The Eosinophils) system which ge nerated this result tra nsmitted reference range : <=4.0. The reference r andreia was not used to int erpret this result as normal/abnormal . [facility] NortheastLfeqrgxGYEXOJUXNC8257-13-95 07:33:00 Test Item Value Reference Range Interpretation Comments Segs-Bands # (test code = Segs-Bands #) 5.1 1.5-8.1 N [facility] NortheastCwcjufyGEOLOCPQRD8779-08-28 07:33:00 Test Item Value Reference Range Interpretation Comments MPV (test code = MPV) 7.1 7.4-10.4 L [facility] NortheastDxvhvtgQGDBVVJCND6564-13-32 07:33:00 Test Item Value Reference Range Interpretation Comments Platelet (test code = Platelet) 285 133-450 N [facility] NortheastBmcosryGJRWDDJWDE3047-09-59 07:33:00 Test Item Value Reference Range Interpretation Comments RDW (test code = RDW) 14.1 11.5-14.5 N [facility] NortheastKlfqosbEREWOCXFKW5041-32-19 07:33:00 Test Item Value Reference Range Interpretation Comments Hgb (test code = Hgb) 8.1 12.0-16.0 L [facility] NortheastTjowvikGHRPCTLWHE6511-94-65 07:33:00 Test Item Value Reference Range Interpretation Comments RBC X 10x6 (test code = RBC X 10x6) 2.65 4.20-5.40 L [facility] NortheastKouzkumDXFTLBMSKG9579-15-15 07:33:00 Test Item Value Reference Range Interpretation Comments WBC X 10x3 (test code = WBC X 10x3) 8.4 3.7-10.4 N [facility] NortheastIzrlkwjKNFVHPRIQI4196-37-59 07:33:00 Test Item Value Reference Range Interpretation Comments MCH (test code = MCH) 30.6 pg 27.0-31.0 N [facility] NortheastVtmloujOTLCCJXMSB4524-45-18 07:33:00 Test Item Value Reference Range Interpretation Comments Hct (test code = Hct) 24.2 36.0-48.0 L [facility] NortheastYlqlxeqKOFDXXAGQP5351-17-45 07:33:00 Test Item Value Reference Range Interpretation Comments MCHC (test code = MCHC) 33.4 32.0-36.0 N [facility] NortheastZjqwgxxDFXDYLFJWH3005-92-30 07:33:00 Test Item Value Reference Range Interpretation Comments MCV (test code = MCV) 91.5 81.0-99.0 N [facility] CenterIjiyrkgISGVRLCRB8522-89-79 07:33:00 Test Item Value Reference Range Interpretation Comments eGFR (test code = eGFR) 48 [facility] CenterLygvkyhYFJXCDWDY6505-35-86 07:33:00 Test Item Value Reference Range Interpretation Comments Chloride Lvl (test code = Chloride Lvl) 97 95-109 N [facility] CenterXlvgarcVFOHUFQGS1227-91-36 07:33:00 Test Item Value Reference Range Interpretation Comments Potassium Lvl (test code = Potassium 3.6 3.5-5.1 N Lvl) [facility] CenterPwtionrDLUIOTJHA3242-19-48 07:33:00 Test Item Value Reference Range Interpretation Comments CO2 (test code = CO2) 27 24-32 N [facility] CenterHxshwkaBXNKETRVY4143-66-55 07:33:00 Test Item Value Reference Range Interpretation Comments Calcium Lvl (test code = Calcium Lvl) 8.1 8.5-10.5 L [facility] CenterZzmxownEZKCEUESR3973-96-37 07:33:00 Test Item Value Reference Range Interpretation Comments Glucose Lvl (test code = Glucose Lvl) 130 70-99 H [facility] CenterJxqmbisYIEALMCEX8357-26-95 07:33:00 Test Item Value Reference Range Interpretation Comments BUN (test code = BUN) 22 7-22 N [facility] CenterTpufabgRWOWPZYJY6426-54-85 07:33:00 Test Item Value Reference Range Interpretation Comments Sodium Lvl (test code = Sodium Lvl) 136 135-145 N [facility] CenterZqlzbcwZTQMWUNIB0461-48-99 07:33:00 Test Item Value Reference Range Interpretation Comments Creatinine Lvl (test code = Creatinine 1.1 0.5-1.4 N Lvl) [facility] CenterZstxtyhMWVLTTKLM7259-54-27 07:33:00 Test Item Value Reference Range Interpretation Comments AGAP (test code = AGAP) 15.6 10.0-20.0 N [facility] NortheastHfxipvoHVYATPQNVF3191-99-76 07:33:00 Test Item Value Reference Range Interpretation Comments Basophils # (test code 0.1 See_Comment N [Aut omated message] The = Basophils #) system which generated this result tra nsmitted reference range : <=0.2. The reference r andreia was not used to int erpret this result as normal/abnormal . [facility] NortheastEffiqhuEJMGPAHVKK0907-25-54 07:33:00 Test Item Value Reference Range Interpretation Comments Eosinophils # (test code 0.3 See_Comment N [A utomated message] The = Eosinophils #) system whic h generated this result tra nsmitted reference range : <=0.5. The reference r andreia was not used to int erpret this result as normal/abnormal . [facility] NortheastFnzvwlhOAUIXIUFMM6122-52-91 07:33:00 Test Item Value Reference Range Interpretation Comments Monocytes # (test code 0.9 See_Comment H [Aut omated message] The = Monocytes #) system which generated this result tra nsmitted reference range : <=0.8. The reference r andreia was not used to int erpret this result as normal/abnormal . [facility] NortheastJgkfulmDIGTXGHWME2141-20-66 07:33:00 Test Item Value Reference Range Interpretation Comments Monocytes (test code = Monocytes) 10.3 2.0-12.0 N [facility] NortheastNjttrhxMNBQARJZGH8764-53-92 07:33:00 Test Item Value Reference Range Interpretation Comments Lymphocytes (test code = Lymphocytes) 24.6 20.0-40.0 N [facility] NortheastHmepfbaXIZRLYOPTK9281-33-95 07:33:00 Test Item Value Reference Range Interpretation Comments Segs (test code = Segs) 61.0 45.0-75.0 N [facility] NortheastAjavfbsMOEKLNSHTN6949-17-89 07:33:00 Test Item Value Reference Range Interpretation Comments Lymphocytes # (test code = Lymphocytes 2.1 1.0-5.5 N #) [facility] NortheastTastwpwQBEDRKJDMC4617-71-26 07:33:00 Test Item Value Reference Range Interpretation Comments Basophils (test code = 1.0 See_Comment N [Aut omated message] The Basophils) system which ge nerated this result tra nsmitted reference range : <=1.0. The reference r andreia was not used to int erpret this result as normal/abnormal . [facility] NortheastYtodascTDNYYRHNAT3335-37-79 07:33:00 Test Item Value Reference Range Interpretation Comments Eosinophils (test code = 3.1 See_Comment N [A utomated message] The Eosinophils) system which ge nerated this result tra nsmitted reference range : <=4.0. The reference r andreia was not used to int erpret this result as normal/abnormal . [facility] NortheastPlyfkoxXLHQPWIWLA4922-27-78 07:33:00 Test Item Value Reference Range Interpretation Comments Segs-Bands # (test code = Segs-Bands #) 5.1 1.5-8.1 N [facility] NortheastRkeglfrNGXOQOLJSG2712-83-97 07:33:00 Test Item Value Reference Range Interpretation Comments MPV (test code = MPV) 7.1 7.4-10.4 L [facility] NortheastGzanygkRMZOVSZQYH5295-79-15 07:33:00 Test Item Value Reference Range Interpretation Comments Platelet (test code = Platelet) 285 133-450 N [facility] NortheastJggizmmVGXSQXGXPU2293-98-18 07:33:00 Test Item Value Reference Range Interpretation Comments RDW (test code = RDW) 14.1 11.5-14.5 N [facility] NortheastHvrvhrbURZGNCXWFF2362-89-99 07:33:00 Test Item Value Reference Range Interpretation Comments Hgb (test code = Hgb) 8.1 12.0-16.0 L [facility] NortheastZhumcfnSDNAAUUTQA6722-19-20 07:33:00 Test Item Value Reference Range Interpretation Comments RBC X 10x6 (test code = RBC X 10x6) 2.65 4.20-5.40 L [facility] NortheastUxieulzQDMKGSGRQS4286-07-06 07:33:00 Test Item Value Reference Range Interpretation Comments WBC X 10x3 (test code = WBC X 10x3) 8.4 3.7-10.4 N [facility] NortheastAsykwlqVVBBLSCZDH3747-79-89 07:33:00 Test Item Value Reference Range Interpretation Comments MCH (test code = MCH) 30.6 pg 27.0-31.0 N [facility] NortheastFfynhjkVHAFNNLKGK5373-33-96 07:33:00 Test Item Value Reference Range Interpretation Comments Hct (test code = Hct) 24.2 36.0-48.0 L [facility] NortheastUcdnuioVGFEBBDLEJ4906-46-71 07:33:00 Test Item Value Reference Range Interpretation Comments MCHC (test code = MCHC) 33.4 32.0-36.0 N [facility] NortheastSjwthppSOGQUUNHZS6041-24-68 07:33:00 Test Item Value Reference Range Interpretation Comments MCV (test code = MCV) 91.5 81.0-99.0 N [facility] CenterUthppssHANLNBOTX4017-00-76 07:33:00 Test Item Value Reference Range Interpretation Comments eGFR (test code = eGFR) 48 [facility] CenterSxbnomxCQXQKAZVD6502-46-55 07:33:00 Test Item Value Reference Range Interpretation Comments Chloride Lvl (test code = Chloride Lvl) 97 95-109 N [facility] CenterJebvgdyQXEPOOWHG6400-66-93 07:33:00 Test Item Value Reference Range Interpretation Comments Potassium Lvl (test code = Potassium 3.6 3.5-5.1 N Lvl) [facility] CenterUdnrubfMWOTEJERO7822-06-47 07:33:00 Test Item Value Reference Range Interpretation Comments CO2 (test code = CO2) 27 24-32 N [facility] CenterErefzdtEEGMTLVWJ2790-13-48 07:33:00 Test Item Value Reference Range Interpretation Comments Calcium Lvl (test code = Calcium Lvl) 8.1 8.5-10.5 L [facility] CenterDfkwhkgTBJQUKAQP4895-10-77 07:33:00 Test Item Value Reference Range Interpretation Comments Glucose Lvl (test code = Glucose Lvl) 130 70-99 H [facility] CenterScuslioMBZOEBLTM6072-27-03 07:33:00 Test Item Value Reference Range Interpretation Comments BUN (test code = BUN) 22 7-22 N [facility] CenterBfprnrbPIRDYKVSJ7373-90-19 07:33:00 Test Item Value Reference Range Interpretation Comments Sodium Lvl (test code = Sodium Lvl) 136 135-145 N [facility] CenterCtbqpkoVFUQFGLWG3380-82-08 07:33:00 Test Item Value Reference Range Interpretation Comments Creatinine Lvl (test code = Creatinine 1.1 0.5-1.4 N Lvl) [facility] CenterWeopzhyBOECFKTSN4567-23-87 07:33:00 Test Item Value Reference Range Interpretation Comments AGAP (test code = AGAP) 15.6 10.0-20.0 N [facility] NortheastUxfbccdCACFSZNZRH3030-74-31 07:33:00 Test Item Value Reference Range Interpretation Comments Basophils # (test code 0.1 See_Comment N [Aut omated message] The = Basophils #) system which generated this result tra nsmitted reference range : <=0.2. The reference r andreia was not used to int erpret this result as normal/abnormal . [facility] NortheastThtxbgkRLDOPFDWVB0989-18-29 07:33:00 Test Item Value Reference Range Interpretation Comments Eosinophils # (test code 0.3 See_Comment N [A utomated message] The = Eosinophils #) system whic h generated this result tra nsmitted reference range : <=0.5. The reference r andreia was not used to int erpret this result as normal/abnormal . [facility] NortheastPbdtzjcAHEYKXOGXX6396-47-79 07:33:00 Test Item Value Reference Range Interpretation Comments Monocytes # (test code 0.9 See_Comment H [Aut omated message] The = Monocytes #) system which generated this result tra nsmitted reference range : <=0.8. The reference r andreia was not used to int erpret this result as normal/abnormal . [facility] NortheastJguyadpYFFZAQOXNC8186-92-94 07:33:00 Test Item Value Reference Range Interpretation Comments Monocytes (test code = Monocytes) 10.3 2.0-12.0 N [facility] NortheastIhprheeMGJLZCARTH0720-43-05 07:33:00 Test Item Value Reference Range Interpretation Comments Lymphocytes (test code = Lymphocytes) 24.6 20.0-40.0 N [facility] NortheastCockylkMDJZYGWQCU4714-67-32 07:33:00 Test Item Value Reference Range Interpretation Comments Segs (test code = Segs) 61.0 45.0-75.0 N [facility] NortheastTkjwteuPFCZRTGVEV1439-10-65 07:33:00 Test Item Value Reference Range Interpretation Comments Lymphocytes # (test code = Lymphocytes 2.1 1.0-5.5 N #) [facility] NortheastBobaikuQXCXPUZJNP4553-34-35 07:33:00 Test Item Value Reference Range Interpretation Comments Basophils (test code = 1.0 See_Comment N [Aut omated message] The Basophils) system which ge nerated this result tra nsmitted reference range : <=1.0. The reference r andreia was not used to int erpret this result as normal/abnormal . [facility] NortheastRrehhudTOSRMJQZMG4538-32-11 07:33:00 Test Item Value Reference Range Interpretation Comments Eosinophils (test code = 3.1 See_Comment N [A utomated message] The Eosinophils) system which ge nerated this result tra nsmitted reference range : <=4.0. The reference r andreia was not used to int erpret this result as normal/abnormal . [facility] NortheastVfbxfdrSRKHDFBAZB1594-93-79 07:33:00 Test Item Value Reference Range Interpretation Comments Segs-Bands # (test code = Segs-Bands #) 5.1 1.5-8.1 N [facility] NortheastQenbxceZPNVSQTTQZ9419-45-50 07:33:00 Test Item Value Reference Range Interpretation Comments MPV (test code = MPV) 7.1 7.4-10.4 L [facility] NortheastJnwrkogAZFJEMQKQF7418-32-09 07:33:00 Test Item Value Reference Range Interpretation Comments Platelet (test code = Platelet) 285 133-450 N [facility] NortheastVbgxivgCBLWFOVUNM2689-85-79 07:33:00 Test Item Value Reference Range Interpretation Comments RDW (test code = RDW) 14.1 11.5-14.5 N [facility] NortheastYtmxcloSMBWJJLPSE5902-71-47 07:33:00 Test Item Value Reference Range Interpretation Comments Hgb (test code = Hgb) 8.1 12.0-16.0 L [facility] NortheastIiqvakqXEKBHEOZLO6767-07-35 07:33:00 Test Item Value Reference Range Interpretation Comments RBC X 10x6 (test code = RBC X 10x6) 2.65 4.20-5.40 L [facility] NortheastTtiehihTJIRLOKVRV9176-44-66 07:33:00 Test Item Value Reference Range Interpretation Comments WBC X 10x3 (test code = WBC X 10x3) 8.4 3.7-10.4 N [facility] NortheastSnvkwohUYFZBGRMOH1910-29-60 07:33:00 Test Item Value Reference Range Interpretation Comments MCH (test code = MCH) 30.6 pg 27.0-31.0 N [facility] NortheastQutpimxDEHKVRSFJC8701-26-68 07:33:00 Test Item Value Reference Range Interpretation Comments Hct (test code = Hct) 24.2 36.0-48.0 L [facility] NortheastKpvrhzoUSVZALLUJT1723-11-82 07:33:00 Test Item Value Reference Range Interpretation Comments MCHC (test code = MCHC) 33.4 32.0-36.0 N [facility] NortheastJfcaffoKPPFAULYTW0868-89-55 07:33:00 Test Item Value Reference Range Interpretation Comments MCV (test code = MCV) 91.5 81.0-99.0 N [facility] CenterMedmloeWGCCIKVZT3809-85-69 07:33:00 Test Item Value Reference Range Interpretation Comments eGFR (test code = eGFR) 48 [facility] CenterIwyczstKATFRVOEI9934-83-64 07:33:00 Test Item Value Reference Range Interpretation Comments Chloride Lvl (test code = Chloride Lvl) 97 95-109 N [facility] CenterMcbnyliVVSFRYUZB6988-76-45 07:33:00 Test Item Value Reference Range Interpretation Comments Potassium Lvl (test code = Potassium 3.6 3.5-5.1 N Lvl) [facility] CenterIrlmvvcAXAISJNJO7316-76-69 07:33:00 Test Item Value Reference Range Interpretation Comments CO2 (test code = CO2) 27 24-32 N [facility] CenterYimrumkUGMKMLIFU8082-61-88 07:33:00 Test Item Value Reference Range Interpretation Comments Calcium Lvl (test code = Calcium Lvl) 8.1 8.5-10.5 L [facility] CenterQqqnrixNNXMSTYZU8730-71-30 07:33:00 Test Item Value Reference Range Interpretation Comments Glucose Lvl (test code = Glucose Lvl) 130 70-99 H [facility] CenterQmjeeifVYVJDPWDX6802-82-98 07:33:00 Test Item Value Reference Range Interpretation Comments BUN (test code = BUN) 22 7-22 N [facility] CenterZyruuvyIYEKQAQTH0144-66-54 07:33:00 Test Item Value Reference Range Interpretation Comments Sodium Lvl (test code = Sodium Lvl) 136 135-145 N [facility] CenterJmqbhlhWJQSVPUHQ7938-24-58 07:33:00 Test Item Value Reference Range Interpretation Comments Creatinine Lvl (test code = Creatinine 1.1 0.5-1.4 N Lvl) [facility] CenterKuupayeBTLCYESQE2513-88-31 07:33:00 Test Item Value Reference Range Interpretation Comments AGAP (test code = AGAP) 15.6 10.0-20.0 N [facility] NortheastLvwpsniYKRMMNHRFF7057-75-39 07:33:00 Test Item Value Reference Range Interpretation Comments Basophils # (test code 0.1 See_Comment N [Aut omated message] The = Basophils #) system which generated this result tra nsmitted reference range : <=0.2. The reference r andreia was not used to int erpret this result as normal/abnormal . [facility] NortheastPkpihfuFQYXYBFAOJ1378-27-80 07:33:00 Test Item Value Reference Range Interpretation Comments Eosinophils # (test code 0.3 See_Comment N [A utomated message] The = Eosinophils #) system whic h generated this result tra nsmitted reference range : <=0.5. The reference r andreia was not used to int erpret this result as normal/abnormal . [facility] NortheastJlqfpyfUXZOSYFNDW7757-06-37 07:33:00 Test Item Value Reference Range Interpretation Comments Monocytes # (test code 0.9 See_Comment H [Aut omated message] The = Monocytes #) system which generated this result tra nsmitted reference range : <=0.8. The reference r andreia was not used to int erpret this result as normal/abnormal . [facility] NortheastVhvyksfAHPAVRHSOK4420-94-36 07:33:00 Test Item Value Reference Range Interpretation Comments Monocytes (test code = Monocytes) 10.3 2.0-12.0 N [facility] NortheastJthdskxZMILEVSAKU2695-38-84 07:33:00 Test Item Value Reference Range Interpretation Comments Lymphocytes (test code = Lymphocytes) 24.6 20.0-40.0 N [facility] NortheastTydlmctUNTXXZFUOP3486-49-99 07:33:00 Test Item Value Reference Range Interpretation Comments Segs (test code = Segs) 61.0 45.0-75.0 N [facility] NortheastQfedicpBNJHCXBIDR8356-90-26 07:33:00 Test Item Value Reference Range Interpretation Comments Lymphocytes # (test code = Lymphocytes 2.1 1.0-5.5 N #) [facility] NortheastGxtysgcVEAXMIFMWM6489-83-20 07:33:00 Test Item Value Reference Range Interpretation Comments Basophils (test code = 1.0 See_Comment N [Aut omated message] The Basophils) system which ge nerated this result tra nsmitted reference range : <=1.0. The reference r andreia was not used to int erpret this result as normal/abnormal . [facility] NortheastFgamwzdVUHEWLUAMQ3211-20-42 07:33:00 Test Item Value Reference Range Interpretation Comments Eosinophils (test code = 3.1 See_Comment N [A utomated message] The Eosinophils) system which ge nerated this result tra nsmitted reference range : <=4.0. The reference r andreia was not used to int erpret this result as normal/abnormal . [facility] NortheastRufprbfFJNEIHEUKR6300-99-91 07:33:00 Test Item Value Reference Range Interpretation Comments Segs-Bands # (test code = Segs-Bands #) 5.1 1.5-8.1 N [facility] NortheastMyxplrgKZDDESWMEU8828-23-79 07:33:00 Test Item Value Reference Range Interpretation Comments MPV (test code = MPV) 7.1 7.4-10.4 L [facility] NortheastIbrylfcPSIGDRDXIB9345-41-57 07:33:00 Test Item Value Reference Range Interpretation Comments Platelet (test code = Platelet) 285 133-450 N [facility] NortheastBzggyxvEQGXLLSABU9746-98-17 07:33:00 Test Item Value Reference Range Interpretation Comments RDW (test code = RDW) 14.1 11.5-14.5 N [facility] NortheastJfwtjclYPPGRFDZKW4726-92-14 07:33:00 Test Item Value Reference Range Interpretation Comments Hgb (test code = Hgb) 8.1 12.0-16.0 L [facility] NortheastWqgikxgFGRSOWMIMZ1689-65-57 07:33:00 Test Item Value Reference Range Interpretation Comments RBC X 10x6 (test code = RBC X 10x6) 2.65 4.20-5.40 L [facility] NortheastMrttvqbXKIGEFZVJC8354-75-52 07:33:00 Test Item Value Reference Range Interpretation Comments WBC X 10x3 (test code = WBC X 10x3) 8.4 3.7-10.4 N [facility] NortheastGfufrtzMUMRFXWESI6850-85-18 07:33:00 Test Item Value Reference Range Interpretation Comments MCH (test code = MCH) 30.6 pg 27.0-31.0 N [facility] NortheastAsxlsrxHHZSTPYDQL0165-51-03 07:33:00 Test Item Value Reference Range Interpretation Comments Hct (test code = Hct) 24.2 36.0-48.0 L [facility] NortheastKqhgtgrSRYDBFZPZW6429-82-13 07:33:00 Test Item Value Reference Range Interpretation Comments MCHC (test code = MCHC) 33.4 32.0-36.0 N [facility] NortheastMcejnmxFSPPMZERLB4057-23-15 07:33:00 Test Item Value Reference Range Interpretation Comments MCV (test code = MCV) 91.5 81.0-99.0 N [facility] CenterSyfegckNHFCZBKLM1614-38-70 07:33:00 Test Item Value Reference Range Interpretation Comments eGFR (test code = eGFR) 48 [facility] CenterOdccpfbTKGUGCDNW4063-09-76 07:33:00 Test Item Value Reference Range Interpretation Comments Chloride Lvl (test code = Chloride Lvl) 97 95-109 N [facility] CenterIrppeqzDKETGPJAY6098-17-01 07:33:00 Test Item Value Reference Range Interpretation Comments Potassium Lvl (test code = Potassium 3.6 3.5-5.1 N Lvl) [facility] CenterAqzmlonBQZJQJYYM1388-66-05 07:33:00 Test Item Value Reference Range Interpretation Comments CO2 (test code = CO2) 27 24-32 N [facility] CenterHrsztgeXZCKFOMGP2811-40-24 07:33:00 Test Item Value Reference Range Interpretation Comments Calcium Lvl (test code = Calcium Lvl) 8.1 8.5-10.5 L [facility] CenterNzfjkjqSPOGBNWMZ6818-91-57 07:33:00 Test Item Value Reference Range Interpretation Comments Glucose Lvl (test code = Glucose Lvl) 130 70-99 [facility] CenterDsdubjsQKEARRUPK8693-61-36 07:33:00 Test Item Value Reference Range Interpretation Comments BUN (test code = BUN) 22 7-22 N [facility] CenterFgwaioaTSWBNHYKF5453-93-40 07:33:00 Test Item Value Reference Range Interpretation Comments Sodium Lvl (test code = Sodium Lvl) 136 135-145 N [facility] CenterWncghdeEVNULOMHR8609-10-13 07:33:00 Test Item Value Reference Range Interpretation Comments Creatinine Lvl (test code = Creatinine 1.1 0.5-1.4 N Lvl) [facility] CenterCigcxqoTKFSETFLA5166-92-99 07:33:00 Test Item Value Reference Range Interpretation Comments AGAP (test code = AGAP) 15.6 10.0-20.0 N [facility]TtxvwvhGLFMSGQPPZ6089-02-27 07:33:00 Test Item Value Reference Range Interpretation Comments Basophils # (test code 0.1 See_Comment N [Aut omated message] The = Basophils #) system which generated this result tra nsmitted reference range : <=0.2. The reference r andreia was not used to int erpret this result as normal/abnormal . [facility]XzfbqspQQUPUBQPDW3387-06-68 07:33:00 Test Item Value Reference Range Interpretation Comments Eosinophils # (test code 0.3 See_Comment N [A utomated message] The = Eosinophils #) system whic h generated this result tra nsmitted reference range : <=0.5. The reference r andreia was not used to int erpret this result as normal/abnormal . [facility] NortheastVjgzexrCTARHQRRUL2878-66-16 07:33:00 Test Item Value Reference Range Interpretation Comments Monocytes # (test code 0.9 See_Comment H [Aut omated message] The = Monocytes #) system which generated this result tra nsmitted reference range : <=0.8. The reference r andreia was not used to int erpret this result as normal/abnormal . [facility] NortheastYodhipaEUABAWSFDZ1734-15-20 07:33:00 Test Item Value Reference Range Interpretation Comments Monocytes (test code = Monocytes) 10.3 2.0-12.0 N [facility] NortheastUuidjxrLZCJTDGOQZ2827-99-92 07:33:00 Test Item Value Reference Range Interpretation Comments Lymphocytes (test code = Lymphocytes) 24.6 20.0-40.0 N [facility] NortheastQdogkegHJHLPVHRDT8158-45-85 07:33:00 Test Item Value Reference Range Interpretation Comments Segs (test code = Segs) 61.0 45.0-75.0 N [facility] NortheastVvlcfzhMMWOCFXQET5586-44-68 07:33:00 Test Item Value Reference Range Interpretation Comments Lymphocytes # (test code = Lymphocytes 2.1 1.0-5.5 N #) [facility] NortheastSirkwtuQOPVSAMAKO2851-28-44 07:33:00 Test Item Value Reference Range Interpretation Comments Basophils (test code = 1.0 See_Comment N [Aut omated message] The Basophils) system which ge nerated this result tra nsmitted reference range : <=1.0. The reference r andreia was not used to int erpret this result as normal/abnormal . [facility] NortheastIbikxfjWQYTTJNKZL3587-30-31 07:33:00 Test Item Value Reference Range Interpretation Comments Eosinophils (test code = 3.1 See_Comment N [A utomated message] The Eosinophils) system which ge nerated this result tra nsmitted reference range : <=4.0. The reference r andreia was not used to int erpret this result as normal/abnormal . [facility] NortheastWkoiqaqQBDJXJTCIK4196-70-98 07:33:00 Test Item Value Reference Range Interpretation Comments Segs-Bands # (test code = Segs-Bands #) 5.1 1.5-8.1 N [facility] NortheastIyicsmwUTPWMOOWGR7450-27-20 07:33:00 Test Item Value Reference Range Interpretation Comments MPV (test code = MPV) 7.1 7.4-10.4 L [facility] NortheastHrrntodFFBAALFGLJ9979-17-93 07:33:00 Test Item Value Reference Range Interpretation Comments Platelet (test code = Platelet) 285 133-450 N [facility] NortheastWhcriwoLAIBNUKLNV3187-04-97 07:33:00 Test Item Value Reference Range Interpretation Comments RDW (test code = RDW) 14.1 11.5-14.5 N [facility] NortheastMguxsszNAFPFBDZXD8187-67-49 07:33:00 Test Item Value Reference Range Interpretation Comments Hgb (test code = Hgb) 8.1 12.0-16.0 L [facility] NortheastIdggdqsHBVEWCANTH2188-00-77 07:33:00 Test Item Value Reference Range Interpretation Comments RBC X 10x6 (test code = RBC X 10x6) 2.65 4.20-5.40 L [facility] NortheastEyaofqvAATUMQIPHL2504-32-47 07:33:00 Test Item Value Reference Range Interpretation Comments WBC X 10x3 (test code = WBC X 10x3) 8.4 3.7-10.4 N [facility] NortheastScavojlPQXQZQZTAZ8016-81-07 07:33:00 Test Item Value Reference Range Interpretation Comments MCH (test code = MCH) 30.6 pg 27.0-31.0 N [facility] NortheastJctdrypHQBMTAGLBJ8533-48-60 07:33:00 Test Item Value Reference Range Interpretation Comments Hct (test code = Hct) 24.2 36.0-48.0 L [facility] NortheastSnpjfpyBLCMXSFDQB2067-22-71 07:33:00 Test Item Value Reference Range Interpretation Comments MCHC (test code = MCHC) 33.4 32.0-36.0 N [facility] NortheastKzfldnoMMFDVBCESC2104-81-81 07:33:00 Test Item Value Reference Range Interpretation Comments MCV (test code = MCV) 91.5 81.0-99.0 N [facility] CenterEtlmwmrEEYWNAUJV6768-41-25 07:33:00 Test Item Value Reference Range Interpretation Comments eGFR (test code = eGFR) 48 [facility] CenterGhxonekDAAGXVJCC7428-73-10 07:33:00 Test Item Value Reference Range Interpretation Comments Chloride Lvl (test code = Chloride Lvl) 97 95-109 N [facility] CenterYafklmlGNUIUOCKS5263-75-18 07:33:00 Test Item Value Reference Range Interpretation Comments Potassium Lvl (test code = Potassium 3.6 3.5-5.1 N Lvl) [facility] CenterHkjyrliFOVGORKGI0359-11-44 07:33:00 Test Item Value Reference Range Interpretation Comments CO2 (test code = CO2) 27 24-32 N [facility] CenterXymyzszMIMKSQIBR3853-27-18 07:33:00 Test Item Value Reference Range Interpretation Comments Calcium Lvl (test code = Calcium Lvl) 8.1 8.5-10.5 L [facility] CenterKrcaxnaVLLMIACVR8913-86-35 07:33:00 Test Item Value Reference Range Interpretation Comments Glucose Lvl (test code = Glucose Lvl) 130 70-99 H [facility] CenterNwzgelrBHHIQEMZD2073-80-10 07:33:00 Test Item Value Reference Range Interpretation Comments BUN (test code = BUN) 22 7-22 N [facility] CenterHciwymaJNVAZIDNE6349-32-97 07:33:00 Test Item Value Reference Range Interpretation Comments Sodium Lvl (test code = Sodium Lvl) 136 135-145 N [facility] CenterQeiliwlTIMFQVOOB2962-71-49 07:33:00 Test Item Value Reference Range Interpretation Comments Creatinine Lvl (test code = Creatinine 1.1 0.5-1.4 N Lvl) [facility] CenterUvyjzjtFIPJQSGHR9944-25-41 07:33:00 Test Item Value Reference Range Interpretation Comments AGAP (test code = AGAP) 15.6 10.0-20.0 N [facility] NortheastAilykubWCTEFSKIZP0901-25-82 07:33:00 Test Item Value Reference Range Interpretation Comments Basophils # (test code 0.1 See_Comment N [Aut omated message] The = Basophils #) system which generated this result tra nsmitted reference range : <=0.2. The reference r andreia was not used to int erpret this result as normal/abnormal . [facility] NortheastBljikzuGRVTTETENU6639-30-48 07:33:00 Test Item Value Reference Range Interpretation Comments Eosinophils # (test code 0.3 See_Comment N [A utomated message] The = Eosinophils #) system whic h generated this result tra nsmitted reference range : <=0.5. The reference r andreia was not used to int erpret this result as normal/abnormal . [facility] NortheastIosneraVAHIMGPCND5783-78-04 07:33:00 Test Item Value Reference Range Interpretation Comments Monocytes # (test code 0.9 See_Comment H [Aut omated message] The = Monocytes #) system which generated this result tra nsmitted reference range : <=0.8. The reference r andreia was not used to int erpret this result as normal/abnormal . [facility] NortheastPikawuuEIMCXESDPS1830-62-81 07:33:00 Test Item Value Reference Range Interpretation Comments Monocytes (test code = Monocytes) 10.3 2.0-12.0 N [facility] NortheastHtkggyyVPUMLHJPFT2002-17-04 07:33:00 Test Item Value Reference Range Interpretation Comments Lymphocytes (test code = Lymphocytes) 24.6 20.0-40.0 N [facility] NortheastRtzjrrwHARMSDRDPB6229-37-62 07:33:00 Test Item Value Reference Range Interpretation Comments Segs (test code = Segs) 61.0 45.0-75.0 N [facility] NortheastSdpbrxoSCEUUQUNBI4281-28-82 07:33:00 Test Item Value Reference Range Interpretation Comments Lymphocytes # (test code = Lymphocytes 2.1 1.0-5.5 N #) [facility] NortheastTjzwwkhGEROJEHBTF1721-04-82 07:33:00 Test Item Value Reference Range Interpretation Comments Basophils (test code = 1.0 See_Comment N [Aut omated message] The Basophils) system which ge nerated this result tra nsmitted reference range : <=1.0. The reference r andreia was not used to int erpret this result as normal/abnormal . [facility] NortheastYirqcfpHETHQEIOYH2619-93-92 07:33:00 Test Item Value Reference Range Interpretation Comments Eosinophils (test code = 3.1 See_Comment N [A utomated message] The Eosinophils) system which ge nerated this result tra nsmitted reference range : <=4.0. The reference r andreia was not used to int erpret this result as normal/abnormal . [facility] NortheastDeybdlxEWSEQJRBGW0407-98-89 07:33:00 Test Item Value Reference Range Interpretation Comments Segs-Bands # (test code = Segs-Bands #) 5.1 1.5-8.1 N [facility] NortheastFkjrnklBEILHAWOES9522-23-95 07:33:00 Test Item Value Reference Range Interpretation Comments MPV (test code = MPV) 7.1 7.4-10.4 L [facility] NortheastNbeizhmIRMQJCNWOQ5667-73-90 07:33:00 Test Item Value Reference Range Interpretation Comments Platelet (test code = Platelet) 285 133-450 N [facility] NortheastJdingobXGUKNWLPEX3307-35-72 07:33:00 Test Item Value Reference Range Interpretation Comments RDW (test code = RDW) 14.1 11.5-14.5 N [facility] NortheastOqymhhiSEEWQAKWTC2052-14-57 07:33:00 Test Item Value Reference Range Interpretation Comments Hgb (test code = Hgb) 8.1 12.0-16.0 L [facility] NortheastGkjguttHLAHQNUQAS8919-21-39 07:33:00 Test Item Value Reference Range Interpretation Comments RBC X 10x6 (test code = RBC X 10x6) 2.65 4.20-5.40 L [facility] NortheastRxfgeluMOLTTIJXXS3636-88-92 07:33:00 Test Item Value Reference Range Interpretation Comments WBC X 10x3 (test code = WBC X 10x3) 8.4 3.7-10.4 N [facility] NortheastBiphhmjBAQMGVITEF7976-45-62 07:33:00 Test Item Value Reference Range Interpretation Comments MCH (test code = MCH) 30.6 pg 27.0-31.0 N [facility] NortheastNpvdusyEUQNCFYYYI9476-51-20 07:33:00 Test Item Value Reference Range Interpretation Comments Hct (test code = Hct) 24.2 36.0-48.0 L [facility] NortheastCtmzstpWAXLIGPELY4691-29-37 07:33:00 Test Item Value Reference Range Interpretation Comments MCHC (test code = MCHC) 33.4 32.0-36.0 N [facility] NortheastEssrxrzYTCRRKVPJO9001-06-64 07:33:00 Test Item Value Reference Range Interpretation Comments MCV (test code = MCV) 91.5 81.0-99.0 N [facility] CenterPcbuhicEMJMDFEER6593-30-42 19:35:00 Test Item Value Reference Range Interpretation Comments Magnesium Lvl (test code = Magnesium 1.8 1.8-2.4 N Lvl) [facility] CenterHijwmiuXIMIXCTVZ0142-70-45 19:35:00 Test Item Value Reference Range Interpretation Comments Magnesium Lvl (test code = Magnesium 1.8 1.8-2.4 N Lvl) [facility] CenterHrakqkmEIPLRTXWA8226-79-15 19:35:00 Test Item Value Reference Range Interpretation Comments Magnesium Lvl (test code = Magnesium 1.8 1.8-2.4 N Lvl) [facility] CenterYvodeavDDBMVZXGE5190-46-15 19:35:00 Test Item Value Reference Range Interpretation Comments Magnesium Lvl (test code = Magnesium 1.8 1.8-2.4 N Lvl) [facility] CenterYjzfinoTZGCUVYIQ9078-06-79 19:35:00 Test Item Value Reference Range Interpretation Comments Magnesium Lvl (test code = Magnesium 1.8 1.8-2.4 N Lvl) [facility] CenterVzzjkprITKIIPMCC7386-76-19 19:35:00 Test Item Value Reference Range Interpretation Comments Magnesium Lvl (test code = Magnesium 1.8 1.8-2.4 N Lvl) [facility] CenterKmfxrlqXBGMSJPKC4996-80-05 19:35:00 Test Item Value Reference Range Interpretation Comments Magnesium Lvl (test code = Magnesium 1.8 1.8-2.4 N Lvl) [facility] CenterPjekgalQVYOYNTJR4685-62-25 19:35:00 Test Item Value Reference Range Interpretation Comments Magnesium Lvl (test code = Magnesium 1.8 1.8-2.4 N Lvl) [facility] CenterIrueecuAMRBOQTMS6865-08-76 19:35:00 Test Item Value Reference Range Interpretation Comments Magnesium Lvl (test code = Magnesium 1.8 1.8-2.4 N Lvl) [facility] CenterYqujbwsVTHOCDIGO6814-90-51 19:35:00 Test Item Value Reference Range Interpretation Comments Magnesium Lvl (test code = Magnesium 1.8 1.8-2.4 N Lvl) [place] [address]-01-25 19:35:00 Test Item Value Reference Range Interpretation Comments Magnesium Lvl (test code = Magnesium 1.8 1.8-2.4 N Lvl) [facility] CenterBqjmjlfGPVIEJGZY6008-12-33 19:35:00 Test Item Value Reference Range Interpretation Comments Magnesium Lvl (test code = Magnesium 1.8 1.8-2.4 N Lvl) [facility] CenterPxwjigtVGVAPLZYD8731-55-94 19:35:00 Test Item Value Reference Range Interpretation Comments Magnesium Lvl (test code = Magnesium 1.8 1.8-2.4 N Lvl) [facility] CenterJctsptmOUCCWFYVI1568-06-28 19:35:00 Test Item Value Reference Range Interpretation Comments Magnesium Lvl (test code = Magnesium 1.8 1.8-2.4 N Lvl) [facility] CenterLljlzspOOZIYONKU3787-00-01 19:35:00 Test Item Value Reference Range Interpretation Comments Magnesium Lvl (test code = Magnesium 1.8 1.8-2.4 N Lvl) [facility] CenterOppiznhTXSZIYZMD6698-52-67 19:35:00 Test Item Value Reference Range Interpretation Comments Magnesium Lvl (test code = Magnesium 1.8 1.8-2.4 N Lvl) [facility] CenterFpzqeuqWKRVRNYYO5011-24-10 19:35:00 Test Item Value Reference Range Interpretation Comments Magnesium Lvl (test code = Magnesium 1.8 1.8-2.4 N Lvl) [facility] CenterLarndluLPYGRLRAE4059-76-89 19:35:00 Test Item Value Reference Range Interpretation Comments Magnesium Lvl (test code = Magnesium 1.8 1.8-2.4 N Lvl) [facility] CenterNuuxwzhPPSCMFQMS5326-75-02 19:35:00 Test Item Value Reference Range Interpretation Comments Magnesium Lvl (test code = Magnesium 1.8 1.8-2.4 N Lvl) [facility] CenterDbwciusIPRVDANOY2993-37-42 19:35:00 Test Item Value Reference Range Interpretation Comments Magnesium Lvl (test code = Magnesium 1.8 1.8-2.4 N Lvl) [facility] CenterVmcdonhMBEGTKFQY7190-92-52 19:35:00 Test Item Value Reference Range Interpretation Comments Magnesium Lvl (test code = Magnesium 1.8 1.8-2.4 N Lvl) [facility] CenterByggpsyKEMTRKLBR5039-18-30 19:35:00 Test Item Value Reference Range Interpretation Comments Magnesium Lvl (test code = Magnesium 1.8 1.8-2.4 N Lvl) [facility] CenterNfzseexIRVXLEKXK4482-73-54 19:35:00 Test Item Value Reference Range Interpretation Comments Magnesium Lvl (test code = Magnesium 1.8 1.8-2.4 N Lvl) [facility] CenterFoezhdrVBCUDWVHR4750-98-91 19:35:00 Test Item Value Reference Range Interpretation Comments Magnesium Lvl (test code = Magnesium 1.8 1.8-2.4 N Lvl) [facility] CenterYznnisrMAGGCQYGJ5058-25-58 19:35:00 Test Item Value Reference Range Interpretation Comments Magnesium Lvl (test code = Magnesium 1.8 1.8-2.4 N Lvl) [facility] CenterPtyodbtVWCEOJFRD3797-66-83 19:35:00 Test Item Value Reference Range Interpretation Comments Magnesium Lvl (test code = Magnesium 1.8 1.8-2.4 N Lvl) [facility] CenterUbzzstrJJPVYNIRK6835-84-21 19:35:00 Test Item Value Reference Range Interpretation Comments Magnesium Lvl (test code = Magnesium 1.8 1.8-2.4 N Lvl) [facility]EzngtsgZYEOPQXKBA1449-21-92 14:49:00 Test Item Value Reference Range Interpretation Comments aPTT (test code = aPTT) 27.0 s 22.9-35.8 N [facility] NortheastSehgczkDZKZJNONDF1385-75-97 14:49:00 Test Item Value Reference Range Interpretation Comments aPTT (test code = aPTT) 27.0 s 22.9-35.8 N [facility] NortheastRkymntvUCAYKWTBEQ4377-03-52 14:49:00 Test Item Value Reference Range Interpretation Comments aPTT (test code = aPTT) 27.0 s 22.9-35.8 N [facility] NortheastVrmqejgHJOSMNVPEE0664-35-23 14:49:00 Test Item Value Reference Range Interpretation Comments aPTT (test code = aPTT) 27.0 s 22.9-35.8 N [facility] NortheastDugrczsMCPYCDKLJR0589-33-93 14:49:00 Test Item Value Reference Range Interpretation Comments aPTT (test code = aPTT) 27.0 s 22.9-35.8 [facility]2014-01-25 14:49:00 Test Item Value Reference Range Interpretation Comments aPTT (test code = aPTT) 27.0 s 22.9-35.8 N [facility] NortheastUiivyhiDFPGVCHASQ3351-91-17 14:49:00 Test Item Value Reference Range Interpretation Comments aPTT (test code = aPTT) 27.0 s 22.9-35.8 N [facility] NortheastMqpafotGCZVWQXNRH1672-17-98 14:49:00 Test Item Value Reference Range Interpretation Comments aPTT (test code = aPTT) 27.0 s 22.9-35.8 [facility]2014-01-25 14:49:00 Test Item Value Reference Range Interpretation Comments aPTT (test code = aPTT) 27.0 s 22.9-35.8 [facility]2014-01-25 14:49:00 Test Item Value Reference Range Interpretation Comments aPTT (test code = aPTT) 27.0 s 22.9-35.8 N [facility] NortheastXuirgtzBFSHDIMGYF9597-09-16 14:49:00 Test Item Value Reference Range Interpretation Comments aPTT (test code = aPTT) 27.0 s 22.9-35.8 [facility]2014-01-25 14:49:00 Test Item Value Reference Range Interpretation Comments aPTT (test code = aPTT) 27.0 s 22.9-35.8 N [facility] NortheastDilnolaQBHZJHNSWF4776-66-72 14:49:00 Test Item Value Reference Range Interpretation Comments aPTT (test code = aPTT) 27.0 s 22.9-35.8 N [facility] NortheastRlhbmbaNXHWCEOPJL9760-99-02 14:49:00 Test Item Value Reference Range Interpretation Comments aPTT (test code = aPTT) 27.0 s 22.9-35.8 N [facility] NortheastRwqmeqmEPYEEDNVOH6894-60-10 14:49:00 Test Item Value Reference Range Interpretation Comments aPTT (test code = aPTT) 27.0 s 22.9-35.8 N [facility] NortheastAtwijpoWGBLVGLTPN4115-53-22 14:49:00 Test Item Value Reference Range Interpretation Comments aPTT (test code = aPTT) 27.0 s 22.9-35.8 N [facility] NortheastOgjvikuSCXGBNCLJI5941-57-82 14:49:00 Test Item Value Reference Range Interpretation Comments aPTT (test code = aPTT) 27.0 s 22.9-35.8 N [facility] NortheastFlqyzdpIAXXVEDYOY7052-90-28 14:49:00 Test Item Value Reference Range Interpretation Comments aPTT (test code = aPTT) 27.0 s 22.9-35.8 N [facility] NortheastZhrgkxbJIZTWSMZGK8205-57-45 14:49:00 Test Item Value Reference Range Interpretation Comments aPTT (test code = aPTT) 27.0 s 22.9-35.8 N [facility] NortheastAosyretZWMOGJVSOK9147-31-92 14:49:00 Test Item Value Reference Range Interpretation Comments aPTT (test code = aPTT) 27.0 s 22.9-35.8 N [facility] NortheastUkwrlreUBOLCXSQDB2841-65-31 14:49:00 Test Item Value Reference Range Interpretation Comments aPTT (test code = aPTT) 27.0 s 22.9-35.8 N [facility] NortheastWpcytckVCBGASOKNN3142-15-22 14:49:00 Test Item Value Reference Range Interpretation Comments aPTT (test code = aPTT) 27.0 s 22.9-35.8 N [facility] NortheastJlneoitATJRXTKGGY2686-86-81 14:49:00 Test Item Value Reference Range Interpretation Comments aPTT (test code = aPTT) 27.0 s 22.9-35.8 N [facility] NortheastUnmnikeXAJFLYMKOC2280-55-38 14:49:00 Test Item Value Reference Range Interpretation Comments aPTT (test code = aPTT) 27.0 s 22.9-35.8 N [facility] NortheastBrjtofnDGTQSRGNJK8558-50-13 14:49:00 Test Item Value Reference Range Interpretation Comments aPTT (test code = aPTT) 27.0 s 22.9-35.8 N [facility] NortheastHeloaodMLTQFMTQQW6100-08-35 14:49:00 Test Item Value Reference Range Interpretation Comments aPTT (test code = aPTT) 27.0 s 22.9-35.8 N [facility] NortheastRbngsdiYYODRWFRYQ5725-86-66 14:49:00 Test Item Value Reference Range Interpretation Comments aPTT (test code = aPTT) 27.0 s 22.9-35.8 N [facility] CenterJeaumxzMMACOMCQS3288-17-90 19:51:00 Test Item Value Reference Range Interpretation Comments POC A Glu (test code = POC A Glu) 129 70-99 H [facility] CenterKtupaolJVSREMICW5539-74-25 19:51:00 Test Item Value Reference Range Interpretation Comments POC A LA (test code = POC A LA) 0.6 0.5-2.2 N [facility] CenterJwfenzwRHIKUZJTW5945-38-11 19:51:00 Test Item Value Reference Range Interpretation Comments POC A Ca Ion (test code = POC A Ca Ion) 1.14 1.05-1.25 N [facility] CenterRxbqgpqTPMORPULM8945-46-41 19:51:00 Test Item Value Reference Range Interpretation Comments POC A O2 Sat (test code = POC A O2 Sat) 100.0 95.0-100.0 N [facility] CenterVypfykfOVAVJOIQG5137-54-29 19:51:00 Test Item Value Reference Range Interpretation Comments POC A K (test code = POC A K) 3.2 3.5-5.1 L [facility] CenterWrigbaxSJMGEQLYO5040-40-36 19:51:00 Test Item Value Reference Range Interpretation Comments POC A Na (test code = POC A Na) 138 135-145 N [facility] CenterFvyuwfkQNTOPGZST3687-82-48 19:51:00 Test Item Value Reference Range Interpretation Comments POC A Hct (test code = POC A Hct) 26.0 36.0-48.0 L [facility] CenterDdbjavlGILBMKPBE7535-04-98 19:51:00 Test Item Value Reference Range Interpretation Comments POC A BE (test code = 4 See_Comment H [Auto mated message] The POC A BE) system which ge nerated this result transmit dewayne reference range : <=2. The reference range was not used to interpr et this result as dallin l/abnormal. [facility] CenterTgszceaHRMCKKWDN6812-49-83 19:51:00 Test Item Value Reference Range Interpretation Comments POC A HCO3 (test code = POC A HCO3) 30 22-26 H [facility] CenterCehwvwrMZXETQDEE4279-88-54 19:51:00 Test Item Value Reference Range Interpretation Comments POC A PCO2 (test code = POC A PCO2) 53 35-45 H [facility] CenterFhzeocjQXDQEGRCS3750-69-92 19:51:00 Test Item Value Reference Range Interpretation Comments POC A PO2 (test code = POC A PO2) 188 80-100 H [facility] CenterWivncfhWYBQBNWAS1327-84-80 19:51:00 Test Item Value Reference Range Interpretation Comments POC A Source (test code = POC A Source) ART [facility] CenterEwcapibAZCGRBXAV2558-53-05 19:51:00 Test Item Value Reference Range Interpretation Comments POC A pH (test code = POC A pH) 7.36 7.35-7.45 N [facility] CenterTdxjmmsVYVNSWLQI1463-51-73 19:51:00 Test Item Value Reference Range Interpretation Comments POC A Temp (test code = POC A Temp) 37.0 [facility] CenterZdspryvDLMWXQCHT1202-33-45 19:51:00 Test Item Value Reference Range Interpretation Comments POC A Glu (test code = POC A Glu) 129 70-99 H [facility] CenterOpezugoVTAERCBJX8749-51-98 19:51:00 Test Item Value Reference Range Interpretation Comments POC A LA (test code = POC A LA) 0.6 0.5-2.2 N [facility] CenterHlqzpgnYBZOMAGOI9038-84-14 19:51:00 Test Item Value Reference Range Interpretation Comments POC A Ca Ion (test code = POC A Ca Ion) 1.14 1.05-1.25 N [facility] CenterSuylpwzBQBFORWAJ6454-36-76 19:51:00 Test Item Value Reference Range Interpretation Comments POC A O2 Sat (test code = POC A O2 Sat) 100.0 95.0-100.0 N [facility] CenterMvzinqtMRKIDWTRZ7954-21-67 19:51:00 Test Item Value Reference Range Interpretation Comments POC A K (test code = POC A K) 3.2 3.5-5.1 L [facility] CenterKtsnkufABOZVXTCO0281-60-49 19:51:00 Test Item Value Reference Range Interpretation Comments POC A Na (test code = POC A Na) 138 135-145 N [facility] CenterOoyedarZIXJPTUXS7727-18-83 19:51:00 Test Item Value Reference Range Interpretation Comments POC A Hct (test code = POC A Hct) 26.0 36.0-48.0 L [facility] CenterCzhfktmQHJPLHCXG0094-68-78 19:51:00 Test Item Value Reference Range Interpretation Comments POC A BE (test code = 4 See_Comment H [Auto mated message] The POC A BE) system which ge nerated this result transmit dewayne reference range : <=2. The reference range was not used to interpr et this result as dallin l/abnormal. [facility] CenterEdwvlkdALHPEMURR9536-00-32 19:51:00 Test Item Value Reference Range Interpretation Comments POC A HCO3 (test code = POC A HCO3) 30 22-26 [facility] CenterYnnuwbqAECSRCPLT0243-22-55 19:51:00 Test Item Value Reference Range Interpretation Comments POC A PCO2 (test code = POC A PCO2) 53 35-45 H [facility] CenterSvonkdiFYFINTOJT4808-96-31 19:51:00 Test Item Value Reference Range Interpretation Comments POC A PO2 (test code = POC A PO2) 188 80-100 H [facility] CenterAwihmleKPZCRDTVD2522-26-39 19:51:00 Test Item Value Reference Range Interpretation Comments POC A Source (test code = POC A Source) ART [facility] CenterItlddytUJMHZPLQD7673-71-27 19:51:00 Test Item Value Reference Range Interpretation Comments POC A pH (test code = POC A pH) 7.36 7.35-7.45 N [facility] CenterNxxlibkUQZHLOGKI7166-28-52 19:51:00 Test Item Value Reference Range Interpretation Comments POC A Temp (test code = POC A Temp) 37.0 [facility] CenterFlnnxjnHZREDLJNQ6760-19-10 19:51:00 Test Item Value Reference Range Interpretation Comments POC A Glu (test code = POC A Glu) 129 70-99 H [facility] CenterDndnpopTKCGYSZYA5414-65-95 19:51:00 Test Item Value Reference Range Interpretation Comments POC A LA (test code = POC A LA) 0.6 0.5-2.2 N [facility] CenterAtpedbvYMWAESHLD8189-58-27 19:51:00 Test Item Value Reference Range Interpretation Comments POC A Ca Ion (test code = POC A Ca Ion) 1.14 1.05-1.25 N [facility] CenterDcmlmeeKJVXNIBNW6814-18-97 19:51:00 Test Item Value Reference Range Interpretation Comments POC A O2 Sat (test code = POC A O2 Sat) 100.0 95.0-100.0 N [facility] CenterNudumsqWCLTKGHQY4572-52-91 19:51:00 Test Item Value Reference Range Interpretation Comments POC A K (test code = POC A K) 3.2 3.5-5.1 L [facility] CenterXfjcdvxXCBGBQWPS5565-10-12 19:51:00 Test Item Value Reference Range Interpretation Comments POC A Na (test code = POC A Na) 138 135-145 N [facility] CenterCbxgctmDRVOXEQQA8418-46-60 19:51:00 Test Item Value Reference Range Interpretation Comments POC A Hct (test code = POC A Hct) 26.0 36.0-48.0 L [facility] CenterYrvqkgwQFJSFFFDF3023-56-02 19:51:00 Test Item Value Reference Range Interpretation Comments POC A BE (test code = 4 See_Comment H [Auto mated message] The POC A BE) system which ge nerated this result transmit dewayne reference range : <=2. The reference range was not used to interpr et this result as dallin l/abnormal. [facility] CenterRcggkbtJWXGTQTPC2204-92-89 19:51:00 Test Item Value Reference Range Interpretation Comments POC A HCO3 (test code = POC A HCO3) 30 22-26 H [facility] CenterXijkfswFDKAWBDFJ9249-22-24 19:51:00 Test Item Value Reference Range Interpretation Comments POC A PCO2 (test code = POC A PCO2) 53 35-45 H [facility] CenterCogdebeWVMZCJXIC6591-94-48 19:51:00 Test Item Value Reference Range Interpretation Comments POC A PO2 (test code = POC A PO2) 188 80-100 H [facility] CenterMllctnuJQJBQRFUQ0885-11-46 19:51:00 Test Item Value Reference Range Interpretation Comments POC A Source (test code = POC A Source) ART [facility] CenterGdbspiyRSUWBHIEP4625-60-04 19:51:00 Test Item Value Reference Range Interpretation Comments POC A pH (test code = POC A pH) 7.36 7.35-7.45 N [facility] CenterTqgawbqRMESYOJWY6710-77-64 19:51:00 Test Item Value Reference Range Interpretation Comments POC A Temp (test code = POC A Temp) 37.0 [facility] CenterErdjldeTVDPTZBTF1405-11-12 19:51:00 Test Item Value Reference Range Interpretation Comments POC A Glu (test code = POC A Glu) 129 70-99 H [facility] CenterGorgpdqVVSYANZYF0199-64-17 19:51:00 Test Item Value Reference Range Interpretation Comments POC A LA (test code = POC A LA) 0.6 0.5-2.2 N [facility] CenterBpufpjwJAEKQBSKZ7042-97-89 19:51:00 Test Item Value Reference Range Interpretation Comments POC A Ca Ion (test code = POC A Ca Ion) 1.14 1.05-1.25 N [facility] CenterTtwzrepAFNIBMVFN6276-18-19 19:51:00 Test Item Value Reference Range Interpretation Comments POC A O2 Sat (test code = POC A O2 Sat) 100.0 95.0-100.0 N [facility] CenterKjijvutGWWGQNIOV9171-59-08 19:51:00 Test Item Value Reference Range Interpretation Comments POC A K (test code = POC A K) 3.2 3.5-5.1 L [facility] CenterEwflulvGDKCRFONH9158-38-05 19:51:00 Test Item Value Reference Range Interpretation Comments POC A Na (test code = POC A Na) 138 135-145 N [facility] CenterIziwrpfLADZHBXBI9571-25-46 19:51:00 Test Item Value Reference Range Interpretation Comments POC A Hct (test code = POC A Hct) 26.0 36.0-48.0 L [facility] CenterCmbheogRFOYFVWJZ1670-94-31 19:51:00 Test Item Value Reference Range Interpretation Comments POC A BE (test code = 4 See_Comment H [Auto mated message] The POC A BE) system which ge nerated this result transmit dewayne reference range : <=2. The reference range was not used to interpr et this result as dallin l/abnormal. [facility] CenterXtaepfzHGNQZHEUU3230-65-02 19:51:00 Test Item Value Reference Range Interpretation Comments POC A HCO3 (test code = POC A HCO3) 30 22-26 H [facility] CenterVtlzlslQOROCGWRQ6718-15-87 19:51:00 Test Item Value Reference Range Interpretation Comments POC A PCO2 (test code = POC A PCO2) 53 35-45 H [facility] CenterLgkpjusEVZVCLAEJ4472-87-30 19:51:00 Test Item Value Reference Range Interpretation Comments POC A PO2 (test code = POC A PO2) 188 80-100 H [facility] CenterNiblbnwXABOATZCV1888-80-39 19:51:00 Test Item Value Reference Range Interpretation Comments POC A Source (test code = POC A Source) ART [facility] CenterGplualiUSAISSXDL4784-96-83 19:51:00 Test Item Value Reference Range Interpretation Comments POC A pH (test code = POC A pH) 7.36 7.35-7.45 N [facility] CenterNsrkbxtPGJTVKSNU7868-70-99 19:51:00 Test Item Value Reference Range Interpretation Comments POC A Temp (test code = POC A Temp) 37.0 [facility] CenterOvumhsbUXTBIKTMX1507-15-23 19:51:00 Test Item Value Reference Range Interpretation Comments POC A Glu (test code = POC A Glu) 129 70-99 H [facility] CenterMlopifwWRNMLIAYU3016-81-67 19:51:00 Test Item Value Reference Range Interpretation Comments POC A LA (test code = POC A LA) 0.6 0.5-2.2 N [facility] CenterJjhbymuPJVHHAMNB6781-35-49 19:51:00 Test Item Value Reference Range Interpretation Comments POC A Ca Ion (test code = POC A Ca Ion) 1.14 1.05-1.25 N [facility] CenterXlvwhbbMDSDEGJIQ5991-02-90 19:51:00 Test Item Value Reference Range Interpretation Comments POC A O2 Sat (test code = POC A O2 Sat) 100.0 95.0-100.0 N [facility] CenterQgflcgiFCFBSRFYO5174-32-36 19:51:00 Test Item Value Reference Range Interpretation Comments POC A K (test code = POC A K) 3.2 3.5-5.1 L [facility] CenterMasovmoXOYBSARCA4119-41-61 19:51:00 Test Item Value Reference Range Interpretation Comments POC A Na (test code = POC A Na) 138 135-145 N [facility] CenterZaildsqTFUNGNEXI6541-26-22 19:51:00 Test Item Value Reference Range Interpretation Comments POC A Hct (test code = POC A Hct) 26.0 36.0-48.0 L [facility] CenterNadbkcyKJTVBTYQM5719-89-90 19:51:00 Test Item Value Reference Range Interpretation Comments POC A BE (test code = 4 See_Comment H [Auto mated message] The POC A BE) system which ge nerated this result transmit dewayne reference range : <=2. The reference range was not used to interpr et this result as dallin l/abnormal. [facility] CenterHpxfdgaQEKUNWTBN8136-45-83 19:51:00 Test Item Value Reference Range Interpretation Comments POC A HCO3 (test code = POC A HCO3) 30 22-26 H [facility] CenterOirgifxEHVHFHXNT3774-89-78 19:51:00 Test Item Value Reference Range Interpretation Comments POC A PCO2 (test code = POC A PCO2) 53 35-45 H [facility] CenterUlkqndiDAQICXLTC9944-34-81 19:51:00 Test Item Value Reference Range Interpretation Comments POC A PO2 (test code = POC A PO2) 188 80-100 H [facility] CenterQojfsqbMHFPXCGWO5591-76-83 19:51:00 Test Item Value Reference Range Interpretation Comments POC A Source (test code = POC A Source) ART [facility] CenterRclbvqeXNOJYJZZJ8242-89-36 19:51:00 Test Item Value Reference Range Interpretation Comments POC A pH (test code = POC A pH) 7.36 7.35-7.45 N [facility] CenterShmrdihSQUCQMILB7885-50-87 19:51:00 Test Item Value Reference Range Interpretation Comments POC A Temp (test code = POC A Temp) 37.0 [facility] CenterSganhwuZZDNJULME6500-95-35 19:51:00 Test Item Value Reference Range Interpretation Comments POC A Glu (test code = POC A Glu) 129 70-99 H [facility] CenterDldbcvhFKJABCJYZ7584-18-05 19:51:00 Test Item Value Reference Range Interpretation Comments POC A LA (test code = POC A LA) 0.6 0.5-2.2 N [facility] CenterHzntdhsMHUYQVGLS0302-16-45 19:51:00 Test Item Value Reference Range Interpretation Comments POC A Ca Ion (test code = POC A Ca Ion) 1.14 1.05-1.25 N [facility] CenterBzjzfndILCTCIVRZ0898-62-23 19:51:00 Test Item Value Reference Range Interpretation Comments POC A O2 Sat (test code = POC A O2 Sat) 100.0 95.0-100.0 N [facility] CenterYcgfndsZIHVAWSTG1268-81-87 19:51:00 Test Item Value Reference Range Interpretation Comments POC A K (test code = POC A K) 3.2 3.5-5.1 L [facility] CenterPxxrhwxXUSHNYJHX6810-41-87 19:51:00 Test Item Value Reference Range Interpretation Comments POC A Na (test code = POC A Na) 138 135-145 N [facility] CenterVzykkuhBYKYKZMZP7873-74-25 19:51:00 Test Item Value Reference Range Interpretation Comments POC A Hct (test code = POC A Hct) 26.0 36.0-48.0 L [facility] CenterXgxfridMVJUXDQRJ4919-07-61 19:51:00 Test Item Value Reference Range Interpretation Comments POC A BE (test code = 4 See_Comment H [Auto mated message] The POC A BE) system which ge nerated this result transmit dewayne reference range : <=2. The reference range was not used to interpr et this result as dallin l/abnormal. [facility] CenterAtkvzvzNNLCYEZLH5476-11-85 19:51:00 Test Item Value Reference Range Interpretation Comments POC A HCO3 (test code = POC A HCO3) 30 22-26 H [facility] CenterFkuuxttFWDUTHRRU4172-83-48 19:51:00 Test Item Value Reference Range Interpretation Comments POC A PCO2 (test code = POC A PCO2) 53 35-45 H [facility] CenterXzsfszfWHGEPPCTD1646-47-07 19:51:00 Test Item Value Reference Range Interpretation Comments POC A PO2 (test code = POC A PO2) 188 80-100 H [facility] CenterRqtyvykMHZYRGAJB0621-48-92 19:51:00 Test Item Value Reference Range Interpretation Comments POC A Source (test code = POC A Source) ART [facility] CenterNtuiwlmTNUUKOMLC4693-37-38 19:51:00 Test Item Value Reference Range Interpretation Comments POC A pH (test code = POC A pH) 7.36 7.35-7.45 N [facility] CenterDmtvjwzNUNBIKWRH5668-60-52 19:51:00 Test Item Value Reference Range Interpretation Comments POC A Temp (test code = POC A Temp) 37.0 [facility] CenterXyadzijQMNDNONZG3553-68-50 19:51:00 Test Item Value Reference Range Interpretation Comments POC A Glu (test code = POC A Glu) 129 70-99 H [facility] CenterQasetcgZHZZXCZKB2759-48-82 19:51:00 Test Item Value Reference Range Interpretation Comments POC A LA (test code = POC A LA) 0.6 0.5-2.2 N [facility] CenterXpogcmuYTZFPVXKY4037-78-00 19:51:00 Test Item Value Reference Range Interpretation Comments POC A Ca Ion (test code = POC A Ca Ion) 1.14 1.05-1.25 N [facility] CenterHkzvscdVUWBXRACD3750-33-41 19:51:00 Test Item Value Reference Range Interpretation Comments POC A O2 Sat (test code = POC A O2 Sat) 100.0 95.0-100.0 N [facility] CenterTzsvuddCZQLMPROM7021-85-33 19:51:00 Test Item Value Reference Range Interpretation Comments POC A K (test code = POC A K) 3.2 3.5-5.1 L [facility] CenterNlylnudDXVRIXXGL2734-94-45 19:51:00 Test Item Value Reference Range Interpretation Comments POC A Na (test code = POC A Na) 138 135-145 N [facility] CenterIdtqxprVECXMDNDN5542-79-51 19:51:00 Test Item Value Reference Range Interpretation Comments POC A Hct (test code = POC A Hct) 26.0 36.0-48.0 L [facility] CenterEuacczrLUFOJHNRW6764-09-44 19:51:00 Test Item Value Reference Range Interpretation Comments POC A BE (test code = 4 See_Comment H [Auto mated message] The POC A BE) system which ge nerated this result transmit dewayne reference range : <=2. The reference range was not used to interpr et this result as dallin l/abnormal. [facility] CenterYbkemfaHEFHRXBMI5637-66-18 19:51:00 Test Item Value Reference Range Interpretation Comments POC A HCO3 (test code = POC A HCO3) 30 22-26 H [facility] CenterTlfdklyQSFMPHBXT7871-01-80 19:51:00 Test Item Value Reference Range Interpretation Comments POC A PCO2 (test code = POC A PCO2) 53 35-45 H [facility] CenterRjmpupaKQETPVYUZ7116-21-69 19:51:00 Test Item Value Reference Range Interpretation Comments POC A PO2 (test code = POC A PO2) 188 80-100 H [facility] CenterFiubgbiDYDPHESLF1037-07-57 19:51:00 Test Item Value Reference Range Interpretation Comments POC A Source (test code = POC A Source) ART [facility] CenterHjdvwzuVNRJNTMGG6928-74-04 19:51:00 Test Item Value Reference Range Interpretation Comments POC A pH (test code = POC A pH) 7.36 7.35-7.45 N [facility] CenterPrazwedSIBPDKRGW7049-51-53 19:51:00 Test Item Value Reference Range Interpretation Comments POC A Temp (test code = POC A Temp) 37.0 [facility] CenterMlwpmffHKHQKIWLP3282-56-55 19:51:00 Test Item Value Reference Range Interpretation Comments POC A Glu (test code = POC A Glu) 129 70-99 H [facility] CenterDboivaaSRYLCREQM5560-66-67 19:51:00 Test Item Value Reference Range Interpretation Comments POC A LA (test code = POC A LA) 0.6 0.5-2.2 N [facility] CenterIhwyqrkWHJAXVGIL8104-06-59 19:51:00 Test Item Value Reference Range Interpretation Comments POC A Ca Ion (test code = POC A Ca Ion) 1.14 1.05-1.25 N [facility] CenterPfqpvmrZKSZBQWAW0649-96-24 19:51:00 Test Item Value Reference Range Interpretation Comments POC A O2 Sat (test code = POC A O2 Sat) 100.0 95.0-100.0 N [facility] CenterWbklgqeOLDOMJGRN8974-12-39 19:51:00 Test Item Value Reference Range Interpretation Comments POC A K (test code = POC A K) 3.2 3.5-5.1 L [facility] CenterQbgnjbgEZNYVPLFF1017-13-61 19:51:00 Test Item Value Reference Range Interpretation Comments POC A Na (test code = POC A Na) 138 135-145 N [facility] CenterUosfxndMJWONPSOH3903-47-08 19:51:00 Test Item Value Reference Range Interpretation Comments POC A Hct (test code = POC A Hct) 26.0 36.0-48.0 L [facility] CenterLsitfqiFYUXKXXQR0520-11-82 19:51:00 Test Item Value Reference Range Interpretation Comments POC A BE (test code = 4 See_Comment H [Auto mated message] The POC A BE) system which ge nerated this result transmit dewayne reference range : <=2. The reference range was not used to interpr et this result as dallin l/abnormal. [facility] CenterElevaynPAAWQYRGL8078-67-70 19:51:00 Test Item Value Reference Range Interpretation Comments POC A HCO3 (test code = POC A HCO3) 30 22-26 H [facility] CenterDoqpjttUWBNMJRVC6704-87-13 19:51:00 Test Item Value Reference Range Interpretation Comments POC A PCO2 (test code = POC A PCO2) 53 35-45 H [facility] CenterXvjvuxlHJOYYZPOV8138-83-72 19:51:00 Test Item Value Reference Range Interpretation Comments POC A PO2 (test code = POC A PO2) 188 80-100 H [facility] CenterPfrhaaiNPVWGPTFI6471-11-76 19:51:00 Test Item Value Reference Range Interpretation Comments POC A Source (test code = POC A Source) ART [facility] CenterIevpcvbWWGTWTHQX0773-15-72 19:51:00 Test Item Value Reference Range Interpretation Comments POC A pH (test code = POC A pH) 7.36 7.35-7.45 N [facility] CenterJugmifcNMYIADPOI2267-67-76 19:51:00 Test Item Value Reference Range Interpretation Comments POC A Temp (test code = POC A Temp) 37.0 [facility] CenterMuvnpzsDVIEIPNLC0810-13-41 19:51:00 Test Item Value Reference Range Interpretation Comments POC A Glu (test code = POC A Glu) 129 70-99 H [facility] CenterIzexopmEHKUYCIWM3434-36-83 19:51:00 Test Item Value Reference Range Interpretation Comments POC A LA (test code = POC A LA) 0.6 0.5-2.2 N [facility] CenterLvjcdiuCPCKSPIPK6064-34-27 19:51:00 Test Item Value Reference Range Interpretation Comments POC A Ca Ion (test code = POC A Ca Ion) 1.14 1.05-1.25 N [facility] CenterMgdtodxXFIKWHYJX4422-08-57 19:51:00 Test Item Value Reference Range Interpretation Comments POC A O2 Sat (test code = POC A O2 Sat) 100.0 95.0-100.0 N [facility] CenterCjpvuqkJQFXOEQOE2256-10-24 19:51:00 Test Item Value Reference Range Interpretation Comments POC A K (test code = POC A K) 3.2 3.5-5.1 L [facility] CenterUzvwmpvXLIBQWIJX1494-42-86 19:51:00 Test Item Value Reference Range Interpretation Comments POC A Na (test code = POC A Na) 138 135-145 N [facility] CenterWrkpklkMIVCSCTOT4384-02-87 19:51:00 Test Item Value Reference Range Interpretation Comments POC A Hct (test code = POC A Hct) 26.0 36.0-48.0 L [facility] CenterYksyuboPHAMXMLAH5186-37-76 19:51:00 Test Item Value Reference Range Interpretation Comments POC A BE (test code = 4 See_Comment H [Auto mated message] The POC A BE) system which ge nerated this result transmit dewayne reference range : <=2. The reference range was not used to interpr et this result as dallin l/abnormal. [facility] CenterVgnjdcmLHSIOKPAB2274-45-50 19:51:00 Test Item Value Reference Range Interpretation Comments POC A HCO3 (test code = POC A HCO3) 30 22-26 H [facility] CenterYcetjvtXHPCDGERN5013-86-32 19:51:00 Test Item Value Reference Range Interpretation Comments POC A PCO2 (test code = POC A PCO2) 53 35-45 H [facility] CenterTkhrcwnPZWUDIAOV2416-86-87 19:51:00 Test Item Value Reference Range Interpretation Comments POC A PO2 (test code = POC A PO2) 188 80-100 H [facility] CenterHpblqmeEBMKAPFJF1084-87-08 19:51:00 Test Item Value Reference Range Interpretation Comments POC A Source (test code = POC A Source) ART [facility] CenterVcmwcmpJXAIUCHNB7137-57-13 19:51:00 Test Item Value Reference Range Interpretation Comments POC A pH (test code = POC A pH) 7.36 7.35-7.45 N [facility] CenterFjoowmeLPPMNAEUZ4122-35-89 19:51:00 Test Item Value Reference Range Interpretation Comments POC A Temp (test code = POC A Temp) 37.0 [facility] CenterLgpzddfDWEDWZKJP9690-03-80 19:51:00 Test Item Value Reference Range Interpretation Comments POC A Glu (test code = POC A Glu) 129 70-99 H [facility] CenterUllprfaRJKBWHKHY4274-21-77 19:51:00 Test Item Value Reference Range Interpretation Comments POC A LA (test code = POC A LA) 0.6 0.5-2.2 N [facility] CenterWtsmvjqHIUEQYHDZ8796-14-56 19:51:00 Test Item Value Reference Range Interpretation Comments POC A Ca Ion (test code = POC A Ca Ion) 1.14 1.05-1.25 N [facility] CenterRxjpgagDMHYNLMGE9056-26-39 19:51:00 Test Item Value Reference Range Interpretation Comments POC A O2 Sat (test code = POC A O2 Sat) 100.0 95.0-100.0 N [facility] CenterVuggdhfZRBBUHBGG2254-36-59 19:51:00 Test Item Value Reference Range Interpretation Comments POC A K (test code = POC A K) 3.2 3.5-5.1 L [facility] CenterPqvmuzxXCSEAJOZM4089-79-49 19:51:00 Test Item Value Reference Range Interpretation Comments POC A Na (test code = POC A Na) 138 135-145 N [facility] CenterJtgidlvYBKNSMJVY9727-30-19 19:51:00 Test Item Value Reference Range Interpretation Comments POC A Hct (test code = POC A Hct) 26.0 36.0-48.0 L [facility] CenterTdpusfcKRBMYIKEO1768-92-62 19:51:00 Test Item Value Reference Range Interpretation Comments POC A BE (test code = POC A BE) 4 <=2 H [facility] CenterGtwattcNGDADIEYL3773-53-49 19:51:00 Test Item Value Reference Range Interpretation Comments POC A HCO3 (test code = POC A HCO3) 30 22-26 H [facility] CenterEfghjzrCUMWIARJI2615-57-05 19:51:00 Test Item Value Reference Range Interpretation Comments POC A PCO2 (test code = POC A PCO2) 53 35-45 H [facility] CenterRhjjurpNNFYYXUWA5748-63-25 19:51:00 Test Item Value Reference Range Interpretation Comments POC A PO2 (test code = POC A PO2) 188 80-100 H [facility] CenterRwmteqyUTKWFKSPX9875-04-66 19:51:00 Test Item Value Reference Range Interpretation Comments POC A Source (test code = POC A Source) ART [facility] CenterEctnfunMSDPOFSIF2497-37-49 19:51:00 Test Item Value Reference Range Interpretation Comments POC A pH (test code = POC A pH) 7.36 7.35-7.45 N [facility] CenterFyzjnhkVDVJNXLSH9196-76-98 19:51:00 Test Item Value Reference Range Interpretation Comments POC A Temp (test code = POC A Temp) 37.0 [facility] CenterFbzajpdLOFQEGQWH5420-57-49 19:51:00 Test Item Value Reference Range Interpretation Comments POC A Glu (test code = POC A Glu) 129 70-99 H [facility] CenterZnjsiwxOCYOEFPEQ2479-83-62 19:51:00 Test Item Value Reference Range Interpretation Comments POC A LA (test code = POC A LA) 0.6 0.5-2.2 N [facility] CenterMynryguJMFZPPRFV3844-01-41 19:51:00 Test Item Value Reference Range Interpretation Comments POC A Ca Ion (test code = POC A Ca Ion) 1.14 1.05-1.25 N [facility] CenterPpvygjrUIQRHPDDF7778-90-73 19:51:00 Test Item Value Reference Range Interpretation Comments POC A O2 Sat (test code = POC A O2 Sat) 100.0 95.0-100.0 N [facility] CenterEjjsdnyCGVJMGLPW6302-47-26 19:51:00 Test Item Value Reference Range Interpretation Comments POC A K (test code = POC A K) 3.2 3.5-5.1 L [facility] CenterBkciaywVVIRTWDOG4354-56-85 19:51:00 Test Item Value Reference Range Interpretation Comments POC A Na (test code = POC A Na) 138 135-145 N [facility] CenterLmjsetyTFHNZYECA8940-16-10 19:51:00 Test Item Value Reference Range Interpretation Comments POC A Hct (test code = POC A Hct) 26.0 36.0-48.0 L [facility] CenterWwteqnhIQLZEAHCD0552-04-20 19:51:00 Test Item Value Reference Range Interpretation Comments POC A BE (test code = 4 See_Comment H [Auto mated message] The POC A BE) system which ge nerated this result transmit dewayne reference range : <=2. The reference range was not used to interpr et this result as dallin l/abnormal. [facility] CenterPmlvtkhEQTCDRILJ9729-82-98 19:51:00 Test Item Value Reference Range Interpretation Comments POC A HCO3 (test code = POC A HCO3) 30 22-26 H [facility] CenterKhbvlkbNTJCOCLID7538-59-51 19:51:00 Test Item Value Reference Range Interpretation Comments POC A PCO2 (test code = POC A PCO2) 53 35-45 H [facility] CenterFqrmkhtADEMTUXTK0599-76-66 19:51:00 Test Item Value Reference Range Interpretation Comments POC A PO2 (test code = POC A PO2) 188 80-100 H [facility] CenterLirpixtEXKSYADXW9884-86-60 19:51:00 Test Item Value Reference Range Interpretation Comments POC A Source (test code = POC A Source) ART [facility] CenterFnhkvhaIIIBXFMAY6270-50-62 19:51:00 Test Item Value Reference Range Interpretation Comments POC A pH (test code = POC A pH) 7.36 7.35-7.45 N [facility] CenterBuvbhcaWQESTUYPO8209-50-26 19:51:00 Test Item Value Reference Range Interpretation Comments POC A Temp (test code = POC A Temp) 37.0 [facility] CenterIvoumelGCXYSQJCO4027-03-46 19:51:00 Test Item Value Reference Range Interpretation Comments POC A Glu (test code = POC A Glu) 129 70-99 H [facility] CenterEeqqamyHRMCRXFBB6830-61-73 19:51:00 Test Item Value Reference Range Interpretation Comments POC A LA (test code = POC A LA) 0.6 0.5-2.2 N [facility] CenterMldlbeoNLZFVTZUZ8041-76-95 19:51:00 Test Item Value Reference Range Interpretation Comments POC A Ca Ion (test code = POC A Ca Ion) 1.14 1.05-1.25 N [facility] CenterIcbuxdwWMEGNHXNH8206-08-51 19:51:00 Test Item Value Reference Range Interpretation Comments POC A O2 Sat (test code = POC A O2 Sat) 100.0 95.0-100.0 N [facility] CenterHwaicdfXXOJITHKU7783-29-09 19:51:00 Test Item Value Reference Range Interpretation Comments POC A K (test code = POC A K) 3.2 3.5-5.1 L [facility] CenterLbnxvjjOOJODAYMX3844-57-88 19:51:00 Test Item Value Reference Range Interpretation Comments POC A Na (test code = POC A Na) 138 135-145 N [facility] CenterAkbjbkqFIUDXPIRX6931-86-53 19:51:00 Test Item Value Reference Range Interpretation Comments POC A Hct (test code = POC A Hct) 26.0 36.0-48.0 [facility] CenterKapiddiDSMUURGIH8876-71-25 19:51:00 Test Item Value Reference Range Interpretation Comments POC A BE (test code = 4 See_Comment H [Auto mated message] The POC A BE) system which ge nerated this result transmit dewayne reference range : <=2. The reference range was not used to interpr et this result as dallin l/abnormal. [facility] CenterFekptpoIKYDHEXUC9064-41-07 19:51:00 Test Item Value Reference Range Interpretation Comments POC A HCO3 (test code = POC A HCO3) 30 22-26 H [facility] CenterBjkskumIUTGHXCLO8265-71-13 19:51:00 Test Item Value Reference Range Interpretation Comments POC A PCO2 (test code = POC A PCO2) 53 35-45 H [facility] CenterMffvxyiEOASWTJAL1542-14-71 19:51:00 Test Item Value Reference Range Interpretation Comments POC A PO2 (test code = POC A PO2) 188 80-100 H [facility] CenterHvtlqnjOZRRJPNIG3939-28-47 19:51:00 Test Item Value Reference Range Interpretation Comments POC A Source (test code = POC A Source) ART [facility] CenterCglguewYTHODNAUH1850-00-79 19:51:00 Test Item Value Reference Range Interpretation Comments POC A pH (test code = POC A pH) 7.36 7.35-7.45 N [facility] CenterIyszqxpATGWONTZG5693-28-71 19:51:00 Test Item Value Reference Range Interpretation Comments POC A Temp (test code = POC A Temp) 37.0 [facility] CenterVqpbhpjBBRPWRFTN2735-44-15 19:51:00 Test Item Value Reference Range Interpretation Comments POC A Glu (test code = POC A Glu) 129 70-99 H [facility] CenterZryzyycTZRKXJZXQ0608-83-93 19:51:00 Test Item Value Reference Range Interpretation Comments POC A LA (test code = POC A LA) 0.6 0.5-2.2 N [facility] CenterJkgtrlfMNZTDWCHY1445-36-84 19:51:00 Test Item Value Reference Range Interpretation Comments POC A Ca Ion (test code = POC A Ca Ion) 1.14 1.05-1.25 N [facility] CenterGkfmgvoIXPDSDRAL2522-58-08 19:51:00 Test Item Value Reference Range Interpretation Comments POC A O2 Sat (test code = POC A O2 Sat) 100.0 95.0-100.0 N [facility] CenterYujizzmVWWKKQZMX6957-20-74 19:51:00 Test Item Value Reference Range Interpretation Comments POC A K (test code = POC A K) 3.2 3.5-5.1 L [facility] CenterMjziqviCZPZQHAXG1545-48-99 19:51:00 Test Item Value Reference Range Interpretation Comments POC A Na (test code = POC A Na) 138 135-145 N [facility] CenterBovmmugUKVHACKIB8410-40-98 19:51:00 Test Item Value Reference Range Interpretation Comments POC A Hct (test code = POC A Hct) 26.0 36.0-48.0 L [facility] CenterBsqmqqxQWTLXIJMN8795-94-57 19:51:00 Test Item Value Reference Range Interpretation Comments POC A BE (test code = 4 See_Comment H [Auto mated message] The POC A BE) system which ge nerated this result transmit dewayne reference range : <=2. The reference range was not used to interpr et this result as dallin l/abnormal. [facility] CenterZlaeygvFXEKDZVGV7677-67-92 19:51:00 Test Item Value Reference Range Interpretation Comments POC A HCO3 (test code = POC A HCO3) 30 22-26 H [facility] CenterRixpkqyUZYXIRGYO2354-93-88 19:51:00 Test Item Value Reference Range Interpretation Comments POC A PCO2 (test code = POC A PCO2) 53 35-45 H [facility] CenterIghqyabAVYQEJMXJ5882-85-00 19:51:00 Test Item Value Reference Range Interpretation Comments POC A PO2 (test code = POC A PO2) 188 80-100 H [facility] CenterMpnjtcvBGLSOJWZB9882-02-84 19:51:00 Test Item Value Reference Range Interpretation Comments POC A Source (test code = POC A Source) ART [facility] CenterFcrzzhdNRKJLMEPB0546-01-23 19:51:00 Test Item Value Reference Range Interpretation Comments POC A pH (test code = POC A pH) 7.36 7.35-7.45 N [facility] CenterZfccefhIDDTYRRCX0810-99-58 19:51:00 Test Item Value Reference Range Interpretation Comments POC A Temp (test code = POC A Temp) 37.0 [facility] CenterWoboazvNFEIFIUHR7708-63-92 19:51:00 Test Item Value Reference Range Interpretation Comments POC A Glu (test code = POC A Glu) 129 70-99 H [facility] CenterVagxfsiDVTEVQRMN5750-35-48 19:51:00 Test Item Value Reference Range Interpretation Comments POC A LA (test code = POC A LA) 0.6 0.5-2.2 N [facility] CenterJnoikfrZHTUGDNEV3514-27-23 19:51:00 Test Item Value Reference Range Interpretation Comments POC A Glu (test code = POC A Glu) 129 70-99 H [facility] CenterUzxopakAYSFACVFM5051-67-67 19:51:00 Test Item Value Reference Range Interpretation Comments POC A LA (test code = POC A LA) 0.6 0.5-2.2 N [facility] CenterAffuvbbCQZUPRTYD2590-40-40 19:51:00 Test Item Value Reference Range Interpretation Comments POC A Ca Ion (test code = POC A Ca Ion) 1.14 1.05-1.25 N [facility] CenterPhpsbokTAYUGFQHX0162-91-24 19:51:00 Test Item Value Reference Range Interpretation Comments POC A Ca Ion (test code = POC A Ca Ion) 1.14 1.05-1.25 N [facility] CenterSaozdbvHDMMQGCDI4878-94-42 19:51:00 Test Item Value Reference Range Interpretation Comments POC A O2 Sat (test code = POC A O2 Sat) 100.0 95.0-100.0 N [facility] CenterCcpmtazJXBMNUPIZ0229-41-32 19:51:00 Test Item Value Reference Range Interpretation Comments POC A K (test code = POC A K) 3.2 3.5-5.1 L [facility] CenterLfxmrorNANBXSYKP9371-66-25 19:51:00 Test Item Value Reference Range Interpretation Comments POC A Na (test code = POC A Na) 138 135-145 N [facility] CenterKppuepnIMQEYQWHA9490-64-45 19:51:00 Test Item Value Reference Range Interpretation Comments POC A Hct (test code = POC A Hct) 26.0 36.0-48.0 L [facility] CenterAcdxvjyZJSHKHTTE4441-00-26 19:51:00 Test Item Value Reference Range Interpretation Comments POC A BE (test code = 4 See_Comment H [Auto mated message] The POC A BE) system which ge nerated this result transmit dewayne reference range : <=2. The reference range was not used to interpr et this result as dallin l/abnormal. [facility] CenterElckrxlXXTXHSVCS9204-11-88 19:51:00 Test Item Value Reference Range Interpretation Comments POC A HCO3 (test code = POC A HCO3) 30 22-26 H [facility] CenterBxdemrsVDGXFBZBB7156-04-07 19:51:00 Test Item Value Reference Range Interpretation Comments POC A PCO2 (test code = POC A PCO2) 53 35-45 H [facility] CenterGppgbgwYDXUMUCUY0898-06-19 19:51:00 Test Item Value Reference Range Interpretation Comments POC A PO2 (test code = POC A PO2) 188 80-100 H [facility] CenterFzetkbmYHEZBULZM7898-16-92 19:51:00 Test Item Value Reference Range Interpretation Comments POC A Source (test code = POC A Source) ART [facility] CenterJlnktfhKBHNUWOSX3237-63-16 19:51:00 Test Item Value Reference Range Interpretation Comments POC A O2 Sat (test code = POC A O2 Sat) 100.0 95.0-100.0 N [facility] CenterHujlxgtDYQNOTZGN7210-02-71 19:51:00 Test Item Value Reference Range Interpretation Comments POC A pH (test code = POC A pH) 7.36 7.35-7.45 N [facility] CenterOsynwisAPVAJTEOM6270-39-89 19:51:00 Test Item Value Reference Range Interpretation Comments POC A Temp (test code = POC A Temp) 37.0 [facility] CenterEavfrrkYRTDABUXB1345-25-22 19:51:00 Test Item Value Reference Range Interpretation Comments POC A K (test code = POC A K) 3.2 3.5-5.1 L [facility] CenterSfpsbcvYJUSDSPHP5923-48-95 19:51:00 Test Item Value Reference Range Interpretation Comments POC A Na (test code = POC A Na) 138 135-145 N [facility] CenterKqtjwyoUUVYPPOJB9578-64-87 19:51:00 Test Item Value Reference Range Interpretation Comments POC A Hct (test code = POC A Hct) 26.0 36.0-48.0 L [facility] CenterIkysiqsKZILMFJZO2281-76-66 19:51:00 Test Item Value Reference Range Interpretation Comments POC A BE (test code = 4 See_Comment H [Auto mated message] The POC A BE) system which ge nerated this result transmit dewayne reference range : <=2. The reference range was not used to interpr et this result as dallin l/abnormal. [facility] CenterJvnpzurOEPVOYBHN6464-29-45 19:51:00 Test Item Value Reference Range Interpretation Comments POC A HCO3 (test code = POC A HCO3) 30 22-26 H [facility] CenterDemywqsUPAQTUXAW1863-72-81 19:51:00 Test Item Value Reference Range Interpretation Comments POC A PCO2 (test code = POC A PCO2) 53 35-45 H [facility] CenterRvvkpuzGZVSVWHZF7419-19-83 19:51:00 Test Item Value Reference Range Interpretation Comments POC A PO2 (test code = POC A PO2) 188 80-100 H [facility] CenterFnluohjKQNDJSOZQ1070-62-77 19:51:00 Test Item Value Reference Range Interpretation Comments POC A Source (test code = POC A Source) ART [facility] CenterKdrcexoKPKZVGYMJ6919-43-84 19:51:00 Test Item Value Reference Range Interpretation Comments POC A pH (test code = POC A pH) 7.36 7.35-7.45 N [facility] CenterFzlleiyDLPINKBFF8815-02-23 19:51:00 Test Item Value Reference Range Interpretation Comments POC A Temp (test code = POC A Temp) 37.0 [facility] CenterPfctfdlFPPNQTGBP0134-12-24 19:51:00 Test Item Value Reference Range Interpretation Comments POC A Glu (test code = POC A Glu) 129 70-99 H [facility] CenterCqtuzpgQKMZDRURE2205-99-93 19:51:00 Test Item Value Reference Range Interpretation Comments POC A LA (test code = POC A LA) 0.6 0.5-2.2 N [facility] CenterEwnqjfqENOWLNGAF3981-93-78 19:51:00 Test Item Value Reference Range Interpretation Comments POC A Ca Ion (test code = POC A Ca Ion) 1.14 1.05-1.25 N [facility] CenterNalhakdPIDCUIGNW9420-08-87 19:51:00 Test Item Value Reference Range Interpretation Comments POC A O2 Sat (test code = POC A O2 Sat) 100.0 95.0-100.0 N [facility] CenterOwxultcSGBESGKNH3772-56-13 19:51:00 Test Item Value Reference Range Interpretation Comments POC A K (test code = POC A K) 3.2 3.5-5.1 L [facility] CenterJpvgdveLWUKTKJYY8017-66-04 19:51:00 Test Item Value Reference Range Interpretation Comments POC A Na (test code = POC A Na) 138 135-145 N [facility] CenterNdysqklMWFXDJPVU5750-43-67 19:51:00 Test Item Value Reference Range Interpretation Comments POC A Hct (test code = POC A Hct) 26.0 36.0-48.0 L [facility] CenterBjbkrbfYVVWLZTGQ2552-46-20 19:51:00 Test Item Value Reference Range Interpretation Comments POC A BE (test code = 4 See_Comment H [Auto mated message] The POC A BE) system which ge nerated this result transmit dewayne reference range : <=2. The reference range was not used to interpr et this result as dallin l/abnormal. [facility] CenterMwmjpicVFFNJCASA3039-09-74 19:51:00 Test Item Value Reference Range Interpretation Comments POC A HCO3 (test code = POC A HCO3) 30 22-26 H [facility] CenterSkfjnptPXSIOPFAV6434-77-94 19:51:00 Test Item Value Reference Range Interpretation Comments POC A PCO2 (test code = POC A PCO2) 53 35-45 H [facility] CenterTlmsyynOXLVZSHDW6009-37-93 19:51:00 Test Item Value Reference Range Interpretation Comments POC A PO2 (test code = POC A PO2) 188 80-100 H [facility] CenterWrrdpprUCESZZYWS7481-54-61 19:51:00 Test Item Value Reference Range Interpretation Comments POC A Source (test code = POC A Source) ART [facility] CenterKjpmfwuOITQZTXTV9307-33-08 19:51:00 Test Item Value Reference Range Interpretation Comments POC A pH (test code = POC A pH) 7.36 7.35-7.45 N [facility] CenterAjevgzsPFHEWPALL3789-61-56 19:51:00 Test Item Value Reference Range Interpretation Comments POC A Temp (test code = POC A Temp) 37.0 [facility] CenterUmwomrgCBYOFOINL4170-30-23 19:51:00 Test Item Value Reference Range Interpretation Comments POC A Glu (test code = POC A Glu) 129 70-99 H [facility] CenterKyxoxsyEQOPTTACU6654-72-96 19:51:00 Test Item Value Reference Range Interpretation Comments POC A LA (test code = POC A LA) 0.6 0.5-2.2 N [facility] CenterOvunvvgNLZXOKMUO3604-28-20 19:51:00 Test Item Value Reference Range Interpretation Comments POC A Ca Ion (test code = POC A Ca Ion) 1.14 1.05-1.25 N [facility] CenterGjzxdyeQMTBXGILM3857-22-82 19:51:00 Test Item Value Reference Range Interpretation Comments POC A O2 Sat (test code = POC A O2 Sat) 100.0 95.0-100.0 N [facility] CenterQutzzurOBXLEISPZ6754-15-54 19:51:00 Test Item Value Reference Range Interpretation Comments POC A K (test code = POC A K) 3.2 3.5-5.1 L [facility] CenterOcjyzwvMALNNIZIF8021-12-54 19:51:00 Test Item Value Reference Range Interpretation Comments POC A Na (test code = POC A Na) 138 135-145 N [facility] CenterKxlbaiqGVKWWLIHS0676-51-61 19:51:00 Test Item Value Reference Range Interpretation Comments POC A Hct (test code = POC A Hct) 26.0 36.0-48.0 L [facility] CenterEvhkesfGYBZPCYFQ9355-68-69 19:51:00 Test Item Value Reference Range Interpretation Comments POC A BE (test code = 4 See_Comment H [Auto mated message] The POC A BE) system which ge nerated this result transmit dewayne reference range : <=2. The reference range was not used to interpr et this result as dallin l/abnormal. [facility] CenterVkamagmCBXXNFUWX6145-49-19 19:51:00 Test Item Value Reference Range Interpretation Comments POC A HCO3 (test code = POC A HCO3) 30 22-26 H [facility] CenterUasydahLJAYBFXRS7617-14-23 19:51:00 Test Item Value Reference Range Interpretation Comments POC A PCO2 (test code = POC A PCO2) 53 35-45 H [facility] CenterNjmmeodJGADBFSTY5259-79-40 19:51:00 Test Item Value Reference Range Interpretation Comments POC A PO2 (test code = POC A PO2) 188 80-100 H [facility] CenterAqnjptsYDZZHXGUO2392-47-80 19:51:00 Test Item Value Reference Range Interpretation Comments POC A Source (test code = POC A Source) ART [facility] CenterIvhitbvIEULHCVZU3027-03-71 19:51:00 Test Item Value Reference Range Interpretation Comments POC A pH (test code = POC A pH) 7.36 7.35-7.45 N [facility] CenterUgbdroaYNODSXETV0891-66-19 19:51:00 Test Item Value Reference Range Interpretation Comments POC A Temp (test code = POC A Temp) 37.0 [facility] CenterUqngarjZJRQKLBQB0391-84-41 19:51:00 Test Item Value Reference Range Interpretation Comments POC A Glu (test code = POC A Glu) 129 70-99 H [facility] CenterZfqmntoIANTYBUXN6033-54-34 19:51:00 Test Item Value Reference Range Interpretation Comments POC A LA (test code = POC A LA) 0.6 0.5-2.2 N [facility] CenterKetrubdJYZOXPWHX3380-56-52 19:51:00 Test Item Value Reference Range Interpretation Comments POC A Ca Ion (test code = POC A Ca Ion) 1.14 1.05-1.25 N [facility] CenterFraroxfJFRBVKRSC3277-11-90 19:51:00 Test Item Value Reference Range Interpretation Comments POC A O2 Sat (test code = POC A O2 Sat) 100.0 95.0-100.0 N [facility] CenterEestmvuYKUSWMWZJ3174-67-00 19:51:00 Test Item Value Reference Range Interpretation Comments POC A K (test code = POC A K) 3.2 3.5-5.1 L [facility] CenterHhcyxnrFPKIBAEAK4468-22-68 19:51:00 Test Item Value Reference Range Interpretation Comments POC A Na (test code = POC A Na) 138 135-145 N [facility] CenterRhyzlizOMPRDWGFE4508-29-06 19:51:00 Test Item Value Reference Range Interpretation Comments POC A Hct (test code = POC A Hct) 26.0 36.0-48.0 L [facility] CenterFwudgbbCWFAIOQEX3412-82-72 19:51:00 Test Item Value Reference Range Interpretation Comments POC A BE (test code = 4 See_Comment H [Auto mated message] The POC A BE) system which ge nerated this result transmit dewayne reference range : <=2. The reference range was not used to interpr et this result as dallin l/abnormal. [facility] CenterPfmaauxJHSOCVPES7264-50-89 19:51:00 Test Item Value Reference Range Interpretation Comments POC A HCO3 (test code = POC A HCO3) 30 22-26 H [facility] CenterWyksmhhVPXGASOXI0589-25-66 19:51:00 Test Item Value Reference Range Interpretation Comments POC A PCO2 (test code = POC A PCO2) 53 35-45 H [facility] CenterYozzankMMPGUHVRI5185-85-97 19:51:00 Test Item Value Reference Range Interpretation Comments POC A PO2 (test code = POC A PO2) 188 80-100 H [facility] CenterTgfbibyRRVZNHRGB6054-71-92 19:51:00 Test Item Value Reference Range Interpretation Comments POC A Source (test code = POC A Source) ART [facility] CenterYadfsenSHZWRKJPQ8722-77-81 19:51:00 Test Item Value Reference Range Interpretation Comments POC A pH (test code = POC A pH) 7.36 7.35-7.45 N [facility] CenterDcuektmUUQFRENPM9354-75-08 19:51:00 Test Item Value Reference Range Interpretation Comments POC A Temp (test code = POC A Temp) 37.0 [facility] CenterNwtajqkJSWQCAMHP6749-63-74 19:51:00 Test Item Value Reference Range Interpretation Comments POC A Glu (test code = POC A Glu) 129 70-99 H [facility] CenterXsipeyaETVLUVETA5861-50-98 19:51:00 Test Item Value Reference Range Interpretation Comments POC A LA (test code = POC A LA) 0.6 0.5-2.2 N [facility] CenterIgnqdwtZPUXZDSZP6037-40-83 19:51:00 Test Item Value Reference Range Interpretation Comments POC A Ca Ion (test code = POC A Ca Ion) 1.14 1.05-1.25 N [facility] CenterJhjqjmxWCZOCYVYC8582-65-28 19:51:00 Test Item Value Reference Range Interpretation Comments POC A O2 Sat (test code = POC A O2 Sat) 100.0 95.0-100.0 N [facility] CenterYkzlnqdBCVAJLPXY1212-70-34 19:51:00 Test Item Value Reference Range Interpretation Comments POC A K (test code = POC A K) 3.2 3.5-5.1 L [facility] CenterAumoqkaIPEAKXGVV0099-66-90 19:51:00 Test Item Value Reference Range Interpretation Comments POC A Na (test code = POC A Na) 138 135-145 N [facility] CenterIqwbwthUCBHFXWGR8861-72-26 19:51:00 Test Item Value Reference Range Interpretation Comments POC A Hct (test code = POC A Hct) 26.0 36.0-48.0 L [facility] CenterOhzwccgLQTZKJIQV0285-46-54 19:51:00 Test Item Value Reference Range Interpretation Comments POC A BE (test code = 4 See_Comment H [Auto mated message] The POC A BE) system which ge nerated this result transmit dewayne reference range : <=2. The reference range was not used to interpr et this result as dallin l/abnormal. [facility] CenterNuwnkadWXZBPYGAV0943-41-29 19:51:00 Test Item Value Reference Range Interpretation Comments POC A HCO3 (test code = POC A HCO3) 30 22-26 H [facility] CenterJhhofpxDGYQXMBCL9944-01-51 19:51:00 Test Item Value Reference Range Interpretation Comments POC A PCO2 (test code = POC A PCO2) 53 35-45 H [facility] CenterYlwazpvYPCMGMIKL4150-01-03 19:51:00 Test Item Value Reference Range Interpretation Comments POC A PO2 (test code = POC A PO2) 188 80-100 H [facility] CenterJlmelkpLHFBSBWVC7123-01-16 19:51:00 Test Item Value Reference Range Interpretation Comments POC A Source (test code = POC A Source) ART [facility] CenterXuordqkIIWYPMOEI6540-66-86 19:51:00 Test Item Value Reference Range Interpretation Comments POC A pH (test code = POC A pH) 7.36 7.35-7.45 N [facility] CenterPvordzsFDFLVDFTG1049-10-66 19:51:00 Test Item Value Reference Range Interpretation Comments POC A Temp (test code = POC A Temp) 37.0 [facility] CenterXwdjdzzCBXPCECPC2258-51-53 19:51:00 Test Item Value Reference Range Interpretation Comments POC A Glu (test code = POC A Glu) 129 70-99 H [facility] CenterCfnoatgNNBBARWER4210-69-43 19:51:00 Test Item Value Reference Range Interpretation Comments POC A LA (test code = POC A LA) 0.6 0.5-2.2 N [facility] CenterSynmdvlWNTUCUJOZ4711-77-39 19:51:00 Test Item Value Reference Range Interpretation Comments POC A Ca Ion (test code = POC A Ca Ion) 1.14 1.05-1.25 N [facility] CenterDkscodxTELUZCNBV7919-55-67 19:51:00 Test Item Value Reference Range Interpretation Comments POC A O2 Sat (test code = POC A O2 Sat) 100.0 95.0-100.0 N [facility] CenterKmnpeplBTHQLRANV6886-47-98 19:51:00 Test Item Value Reference Range Interpretation Comments POC A K (test code = POC A K) 3.2 3.5-5.1 L [facility] CenterVnjhjkeLHFWRFTFD3964-25-55 19:51:00 Test Item Value Reference Range Interpretation Comments POC A Na (test code = POC A Na) 138 135-145 N [facility] CenterQgluisxMWHVSEEVA3366-82-93 19:51:00 Test Item Value Reference Range Interpretation Comments POC A Hct (test code = POC A Hct) 26.0 36.0-48.0 L [facility] CenterZfaivtuJZYNPKSVV3291-87-40 19:51:00 Test Item Value Reference Range Interpretation Comments POC A BE (test code = 4 See_Comment H [Auto mated message] The POC A BE) system which ge nerated this result transmit dewayne reference range : <=2. The reference range was not used to interpr et this result as dallin l/abnormal. [facility] CenterZcsietwBCCAQIKDH9038-02-43 19:51:00 Test Item Value Reference Range Interpretation Comments POC A HCO3 (test code = POC A HCO3) 30 22-26 H [facility] CenterOeklzobXMUUAQCXV0755-78-37 19:51:00 Test Item Value Reference Range Interpretation Comments POC A PCO2 (test code = POC A PCO2) 53 35-45 H [facility] CenterEbptpbyNXAXRDKFA8604-08-05 19:51:00 Test Item Value Reference Range Interpretation Comments POC A PO2 (test code = POC A PO2) 188 80-100 H [facility] CenterWmqkzybELPFVXQIZ0007-65-69 19:51:00 Test Item Value Reference Range Interpretation Comments POC A Source (test code = POC A Source) ART [facility] CenterLcnzlvpHKAPFDBFQ3720-10-80 19:51:00 Test Item Value Reference Range Interpretation Comments POC A pH (test code = POC A pH) 7.36 7.35-7.45 N [facility] CenterFgcuaamUGMKPZVUC1051-44-23 19:51:00 Test Item Value Reference Range Interpretation Comments POC A Temp (test code = POC A Temp) 37.0 [facility] CenterGzvtsszYYUQYLZUP6619-79-06 19:51:00 Test Item Value Reference Range Interpretation Comments POC A Glu (test code = POC A Glu) 129 70-99 H [facility] CenterKgwpsvgNAXQAHWZH1657-08-23 19:51:00 Test Item Value Reference Range Interpretation Comments POC A LA (test code = POC A LA) 0.6 0.5-2.2 N [facility] CenterKazjrerHJGXWZOAB1647-72-33 19:51:00 Test Item Value Reference Range Interpretation Comments POC A Ca Ion (test code = POC A Ca Ion) 1.14 1.05-1.25 N [facility] CenterSciqhyhXCXKFVKDU3620-95-35 19:51:00 Test Item Value Reference Range Interpretation Comments POC A O2 Sat (test code = POC A O2 Sat) 100.0 95.0-100.0 N [facility] CenterLiffxleVTULGQXVS6629-54-95 19:51:00 Test Item Value Reference Range Interpretation Comments POC A K (test code = POC A K) 3.2 3.5-5.1 L [facility] CenterIvlcnxzISSEKFPGX0345-66-97 19:51:00 Test Item Value Reference Range Interpretation Comments POC A Na (test code = POC A Na) 138 135-145 N [facility] CenterHhobzejTIYJOZDHZ7433-01-39 19:51:00 Test Item Value Reference Range Interpretation Comments POC A Hct (test code = POC A Hct) 26.0 36.0-48.0 L [facility] CenterPddotlfCUAMEQYCL7796-20-16 19:51:00 Test Item Value Reference Range Interpretation Comments POC A BE (test code = POC A BE) 4 <=2 H [facility] CenterKdvpemoVHGHLOUDQ0804-82-94 19:51:00 Test Item Value Reference Range Interpretation Comments POC A HCO3 (test code = POC A HCO3) 30 22-26 H [facility] CenterGhhbsxzCHQOGIDUL5652-02-73 19:51:00 Test Item Value Reference Range Interpretation Comments POC A PCO2 (test code = POC A PCO2) 53 35-45 H [facility] CenterIxonrkiJOFWXNAFT8325-15-31 19:51:00 Test Item Value Reference Range Interpretation Comments POC A PO2 (test code = POC A PO2) 188 80-100 H [facility] CenterPblevwsBSBTOGVSL2121-08-02 19:51:00 Test Item Value Reference Range Interpretation Comments POC A Source (test code = POC A Source) ART [facility] CenterOfhluygBMKCOKRBI7036-90-62 19:51:00 Test Item Value Reference Range Interpretation Comments POC A pH (test code = POC A pH) 7.36 7.35-7.45 N [facility] CenterWrvmprnZVJYJVAGS9376-04-16 19:51:00 Test Item Value Reference Range Interpretation Comments POC A Temp (test code = POC A Temp) 37.0 [facility] CenterWdxrlgdAYBQRNNRK8115-94-76 19:51:00 Test Item Value Reference Range Interpretation Comments POC A Glu (test code = POC A Glu) 129 70-99 H [facility] CenterKakxgnbAPOBZRQNJ0982-01-56 19:51:00 Test Item Value Reference Range Interpretation Comments POC A LA (test code = POC A LA) 0.6 0.5-2.2 N [facility] CenterNqugmlrOUIEFLZML3824-05-88 19:51:00 Test Item Value Reference Range Interpretation Comments POC A Ca Ion (test code = POC A Ca Ion) 1.14 1.05-1.25 [facility] CenterEfmbzzkTGSYSFJRT2375-58-05 19:51:00 Test Item Value Reference Range Interpretation Comments POC A O2 Sat (test code = POC A O2 Sat) 100.0 95.0-100.0 N [facility] CenterWiumxngWAIDLEVOV1983-71-41 19:51:00 Test Item Value Reference Range Interpretation Comments POC A K (test code = POC A K) 3.2 3.5-5.1 [facility] CenterDjuvdogVGIXTKWOK7631-27-58 19:51:00 Test Item Value Reference Range Interpretation Comments POC A Na (test code = POC A Na) 138 135-145 N [facility] CenterEnetvqtHCAPOIBPW2073-19-32 19:51:00 Test Item Value Reference Range Interpretation Comments POC A Hct (test code = POC A Hct) 26.0 36.0-48.0 L [facility] CenterMlzjltpNJIPWXFOH2578-57-43 19:51:00 Test Item Value Reference Range Interpretation Comments POC A BE (test code = 4 See_Comment H [Auto mated message] The POC A BE) system which ge nerated this result transmit dewayne reference range : <=2. The reference range was not used to interpr et this result as dallin l/abnormal. [facility] CenterNebkdndWPXBELBHR2743-98-62 19:51:00 Test Item Value Reference Range Interpretation Comments POC A HCO3 (test code = POC A HCO3) 30 22-26 H [facility] CenterZopxkdkUMCTVDCUV4043-98-33 19:51:00 Test Item Value Reference Range Interpretation Comments POC A PCO2 (test code = POC A PCO2) 53 35-45 H [facility] CenterWoqyaogGDZVCLCRF2108-30-19 19:51:00 Test Item Value Reference Range Interpretation Comments POC A PO2 (test code = POC A PO2) 188 80-100 [facility] CenterHtrbrgdDZUNGWLTC4084-01-04 19:51:00 Test Item Value Reference Range Interpretation Comments POC A Source (test code = POC A Source) ART [facility] CenterRsfsjhnEZKWADNPP6126-81-24 19:51:00 Test Item Value Reference Range Interpretation Comments POC A pH (test code = POC A pH) 7.36 7.35-7.45 N [facility] CenterWhjodpcCZLXHZMRI7383-47-61 19:51:00 Test Item Value Reference Range Interpretation Comments POC A Temp (test code = POC A Temp) 37.0 [facility] CenterTycfqlfCOVFKRVBC5440-80-89 19:51:00 Test Item Value Reference Range Interpretation Comments POC A Glu (test code = POC A Glu) 129 70-99 H [facility] CenterXalasojWWUYETACQ9224-00-67 19:51:00 Test Item Value Reference Range Interpretation Comments POC A LA (test code = POC A LA) 0.6 0.5-2.2 N [facility] CenterCxhmmzuCQQWUHKFH2231-27-70 19:51:00 Test Item Value Reference Range Interpretation Comments POC A Ca Ion (test code = POC A Ca Ion) 1.14 1.05-1.25 N [facility] CenterFberyfzRGATEXOCE6991-49-39 19:51:00 Test Item Value Reference Range Interpretation Comments POC A O2 Sat (test code = POC A O2 Sat) 100.0 95.0-100.0 N [facility] CenterMfgghtfXZSLZNSNO5734-78-57 19:51:00 Test Item Value Reference Range Interpretation Comments POC A K (test code = POC A K) 3.2 3.5-5.1 L [facility] CenterGshuraqLCTPWTOUL7613-66-95 19:51:00 Test Item Value Reference Range Interpretation Comments POC A Na (test code = POC A Na) 138 135-145 N [facility] CenterPhvbuegZCIUIYCRR4906-03-35 19:51:00 Test Item Value Reference Range Interpretation Comments POC A Hct (test code = POC A Hct) 26.0 36.0-48.0 L [facility] CenterKelopaoIJUAIXWDU1045-85-30 19:51:00 Test Item Value Reference Range Interpretation Comments POC A BE (test code = 4 See_Comment H [Auto mated message] The POC A BE) system which ge nerated this result transmit dewayne reference range : <=2. The reference range was not used to interpr et this result as dallin l/abnormal. [facility] CenterNadiwkqSZYOOONDW7703-79-64 19:51:00 Test Item Value Reference Range Interpretation Comments POC A HCO3 (test code = POC A HCO3) 30 22-26 H [facility] CenterJfdmsriCLZYFAVJI5293-64-87 19:51:00 Test Item Value Reference Range Interpretation Comments POC A PCO2 (test code = POC A PCO2) 53 35-45 H [facility] CenterIxxhzafOPFVLNORR8451-47-06 19:51:00 Test Item Value Reference Range Interpretation Comments POC A PO2 (test code = POC A PO2) 188 80-100 H [facility] CenterWnurggpCGMPKZUVY5232-67-21 19:51:00 Test Item Value Reference Range Interpretation Comments POC A Source (test code = POC A Source) ART [facility] CenterMveeylyVPRACYZHE8555-49-31 19:51:00 Test Item Value Reference Range Interpretation Comments POC A pH (test code = POC A pH) 7.36 7.35-7.45 N [facility] CenterOntmlobMXSKFZENS2972-04-75 19:51:00 Test Item Value Reference Range Interpretation Comments POC A Temp (test code = POC A Temp) 37.0 [facility] CenterXrewhmkXAUYOYXYN7967-70-43 19:51:00 Test Item Value Reference Range Interpretation Comments POC A Glu (test code = POC A Glu) 129 70-99 H [facility] CenterRhnupavGMFUBGPQX3018-68-16 19:51:00 Test Item Value Reference Range Interpretation Comments POC A LA (test code = POC A LA) 0.6 0.5-2.2 N [facility] CenterDzsvttpEKJPDGCMS8123-96-64 19:51:00 Test Item Value Reference Range Interpretation Comments POC A Ca Ion (test code = POC A Ca Ion) 1.14 1.05-1.25 N [facility] CenterWtdjafqKPFFRHMBZ4326-55-11 19:51:00 Test Item Value Reference Range Interpretation Comments POC A O2 Sat (test code = POC A O2 Sat) 100.0 95.0-100.0 N [facility] CenterJnoubioKODSKGTIU4567-70-81 19:51:00 Test Item Value Reference Range Interpretation Comments POC A K (test code = POC A K) 3.2 3.5-5.1 L [facility] CenterMkgaghvQRNVDSQEB0914-67-67 19:51:00 Test Item Value Reference Range Interpretation Comments POC A Na (test code = POC A Na) 138 135-145 N [facility] CenterUbadwafWFNSIMKPK7032-30-08 19:51:00 Test Item Value Reference Range Interpretation Comments POC A Hct (test code = POC A Hct) 26.0 36.0-48.0 L [facility] CenterVwhugulLAHIHDNBC4984-44-13 19:51:00 Test Item Value Reference Range Interpretation Comments POC A BE (test code = 4 See_Comment H [Auto mated message] The POC A BE) system which ge nerated this result transmit dewayne reference range : <=2. The reference range was not used to interpr et this result as dallin l/abnormal. [facility] CenterHxulzvbXGLCBIVEX7799-84-89 19:51:00 Test Item Value Reference Range Interpretation Comments POC A HCO3 (test code = POC A HCO3) 30 22-26 H [facility] CenterItevandNOBAHVHCY3610-25-08 19:51:00 Test Item Value Reference Range Interpretation Comments POC A PCO2 (test code = POC A PCO2) 53 35-45 H [facility] CenterAefbjtjVWMCUXJRS7530-55-66 19:51:00 Test Item Value Reference Range Interpretation Comments POC A PO2 (test code = POC A PO2) 188 80-100 H [facility] CenterXdedraiOALOVNZKZ0060-68-20 19:51:00 Test Item Value Reference Range Interpretation Comments POC A Source (test code = POC A Source) ART [facility] CenterSdilcgeGESVTQAFE5785-63-30 19:51:00 Test Item Value Reference Range Interpretation Comments POC A pH (test code = POC A pH) 7.36 7.35-7.45 N [facility] CenterFkpfuwoWGIEYTKBI9826-94-27 19:51:00 Test Item Value Reference Range Interpretation Comments POC A Temp (test code = POC A Temp) 37.0 [facility] CenterXasjjybDMKNOXCOA8359-20-22 19:51:00 Test Item Value Reference Range Interpretation Comments POC A Glu (test code = POC A Glu) 129 70-99 H [facility] CenterMhfapxdRLOZHNSCS8251-85-33 19:51:00 Test Item Value Reference Range Interpretation Comments POC A LA (test code = POC A LA) 0.6 0.5-2.2 N [facility] CenterOjuqsweSNPZHCCUL8826-63-63 19:51:00 Test Item Value Reference Range Interpretation Comments POC A Ca Ion (test code = POC A Ca Ion) 1.14 1.05-1.25 N [facility] CenterCtrhnkwYMYRWAYDH4175-15-51 19:51:00 Test Item Value Reference Range Interpretation Comments POC A O2 Sat (test code = POC A O2 Sat) 100.0 95.0-100.0 N [facility] CenterMdfkrtiUOICNSHII8337-91-49 19:51:00 Test Item Value Reference Range Interpretation Comments POC A K (test code = POC A K) 3.2 3.5-5.1 L [facility] CenterQzqthloFPQDVGLPZ2408-11-84 19:51:00 Test Item Value Reference Range Interpretation Comments POC A Na (test code = POC A Na) 138 135-145 N [facility] CenterUvneohxQXRWEIFVD5222-46-73 19:51:00 Test Item Value Reference Range Interpretation Comments POC A Hct (test code = POC A Hct) 26.0 36.0-48.0 L [facility] CenterJqwkpfbXZCILDPLU1435-93-89 19:51:00 Test Item Value Reference Range Interpretation Comments POC A BE (test code = 4 See_Comment H [Auto mated message] The POC A BE) system which ge nerated this result transmit dewayne reference range : <=2. The reference range was not used to interpr et this result as dallin l/abnormal. [facility] CenterUadyryhADNGZINGA4594-33-95 19:51:00 Test Item Value Reference Range Interpretation Comments POC A HCO3 (test code = POC A HCO3) 30 22-26 H [facility] CenterNlgkhewWZVNWTHAJ3854-24-72 19:51:00 Test Item Value Reference Range Interpretation Comments POC A PCO2 (test code = POC A PCO2) 53 35-45 H [facility] CenterTkrttcfUUUWQCLGG0965-35-94 19:51:00 Test Item Value Reference Range Interpretation Comments POC A PO2 (test code = POC A PO2) 188 80-100 H [facility] CenterPyqegvjIJKKTCKUJ4153-41-75 19:51:00 Test Item Value Reference Range Interpretation Comments POC A Source (test code = POC A Source) ART [facility] CenterRkikimbSDCTYPZSR0225-55-52 19:51:00 Test Item Value Reference Range Interpretation Comments POC A pH (test code = POC A pH) 7.36 7.35-7.45 N [facility] CenterOenzeujTDSWTVHYK0899-94-80 19:51:00 Test Item Value Reference Range Interpretation Comments POC A Temp (test code = POC A Temp) 37.0 [facility] CenterKsihpkkXWTMOPDQO8051-97-20 19:51:00 Test Item Value Reference Range Interpretation Comments POC A Glu (test code = POC A Glu) 129 70-99 H [facility] CenterNpmzccqXVWVDCZGU7584-66-65 19:51:00 Test Item Value Reference Range Interpretation Comments POC A LA (test code = POC A LA) 0.6 0.5-2.2 N [facility] CenterSurdkyyBPHUXKTOY9887-93-33 19:51:00 Test Item Value Reference Range Interpretation Comments POC A Ca Ion (test code = POC A Ca Ion) 1.14 1.05-1.25 N [facility] CenterArtufhcVDEBUVSJG1991-63-50 19:51:00 Test Item Value Reference Range Interpretation Comments POC A O2 Sat (test code = POC A O2 Sat) 100.0 95.0-100.0 N [facility] CenterPfmcinzDLTURACKE8921-39-55 19:51:00 Test Item Value Reference Range Interpretation Comments POC A K (test code = POC A K) 3.2 3.5-5.1 L [facility] CenterBgsgoldMWFZTYJDJ1021-07-31 19:51:00 Test Item Value Reference Range Interpretation Comments POC A Na (test code = POC A Na) 138 135-145 N [facility] CenterLlrooptEQKFSBPGW7815-49-12 19:51:00 Test Item Value Reference Range Interpretation Comments POC A Hct (test code = POC A Hct) 26.0 36.0-48.0 L [facility] CenterVxynwpeYDJCMQTTB5829-05-97 19:51:00 Test Item Value Reference Range Interpretation Comments POC A BE (test code = 4 See_Comment H [Auto mated message] The POC A BE) system which ge nerated this result transmit dewayne reference range : <=2. The reference range was not used to interpr et this result as dallin l/abnormal. [facility] CenterRbtwxaaTMWMAERCN4700-31-52 19:51:00 Test Item Value Reference Range Interpretation Comments POC A HCO3 (test code = POC A HCO3) 30 22-26 H [facility] CenterLtbkffuEQGXBCUIY6843-97-96 19:51:00 Test Item Value Reference Range Interpretation Comments POC A PCO2 (test code = POC A PCO2) 53 35-45 H [facility] CenterSklacnnONGRUIXUB3914-69-19 19:51:00 Test Item Value Reference Range Interpretation Comments POC A PO2 (test code = POC A PO2) 188 80-100 H [facility] CenterLsngonhYQFAKJXYR8890-96-98 19:51:00 Test Item Value Reference Range Interpretation Comments POC A Source (test code = POC A Source) ART [facility] CenterQijbagbEERQBYKAA8476-71-19 19:51:00 Test Item Value Reference Range Interpretation Comments POC A pH (test code = POC A pH) 7.36 7.35-7.45 N [facility] CenterAahxvjuTCULFBIRD3409-92-01 19:51:00 Test Item Value Reference Range Interpretation Comments POC A Temp (test code = POC A Temp) 37.0 [facility] CenterJcflscfJUTNTTPCT9048-75-32 19:51:00 Test Item Value Reference Range Interpretation Comments POC A Glu (test code = POC A Glu) 129 70-99 H [facility] CenterOgpwuulQBNEZZMUY2477-54-59 19:51:00 Test Item Value Reference Range Interpretation Comments POC A LA (test code = POC A LA) 0.6 0.5-2.2 N [facility] CenterEbhouvgFCYOTTENR5879-09-57 19:51:00 Test Item Value Reference Range Interpretation Comments POC A Ca Ion (test code = POC A Ca Ion) 1.14 1.05-1.25 N [facility] CenterFijyufnOBUTYDGMT1830-11-53 19:51:00 Test Item Value Reference Range Interpretation Comments POC A O2 Sat (test code = POC A O2 Sat) 100.0 95.0-100.0 N [facility] CenterFofwspwFKRXTFEMZ0502-83-98 19:51:00 Test Item Value Reference Range Interpretation Comments POC A K (test code = POC A K) 3.2 3.5-5.1 L [facility] CenterNdjtfyxWMVWMOQJP4138-55-97 19:51:00 Test Item Value Reference Range Interpretation Comments POC A Na (test code = POC A Na) 138 135-145 N [facility] CenterTklozypOOWJOWIFR4911-84-25 19:51:00 Test Item Value Reference Range Interpretation Comments POC A Hct (test code = POC A Hct) 26.0 36.0-48.0 L [facility] CenterZjgehzsYGLRHRJUS6753-59-29 19:51:00 Test Item Value Reference Range Interpretation Comments POC A BE (test code = 4 See_Comment H [Auto mated message] The POC A BE) system which ge nerated this result transmit dewayne reference range : <=2. The reference range was not used to interpr et this result as dallin l/abnormal. [facility] CenterTaylijeOSTYTDBSC2374-72-86 19:51:00 Test Item Value Reference Range Interpretation Comments POC A HCO3 (test code = POC A HCO3) 30 22-26 H [facility] CenterHodxawrHJGRWNSQZ8686-20-70 19:51:00 Test Item Value Reference Range Interpretation Comments POC A PCO2 (test code = POC A PCO2) 53 35-45 H [facility] CenterMktlalcWUITEAFDO0062-62-28 19:51:00 Test Item Value Reference Range Interpretation Comments POC A PO2 (test code = POC A PO2) 188 80-100 H [facility] CenterXhkrgfoMRHPNJSBV7732-97-46 19:51:00 Test Item Value Reference Range Interpretation Comments POC A Source (test code = POC A Source) ART [facility] CenterObehabrBFWHRHNPD7654-83-14 19:51:00 Test Item Value Reference Range Interpretation Comments POC A pH (test code = POC A pH) 7.36 7.35-7.45 N [facility] CenterRsaofzbTVXLDALCQ6332-16-12 19:51:00 Test Item Value Reference Range Interpretation Comments POC A Temp (test code = POC A Temp) 37.0 [facility] CenterMajzcghWBCAFVYCV1797-75-77 18:51:00 Test Item Value Reference Range Interpretation Comments POC A Hct (test code = POC A Hct) 27.0 36.0-48.0 L [facility] CenterRtjtfkxSRWGVPOLV0440-21-06 18:51:00 Test Item Value Reference Range Interpretation Comments POC A O2 Sat (test code = POC A O2 Sat) 100.0 95.0-100.0 N [facility] CenterPtyiuqgXIIHLFFQC6068-68-90 18:51:00 Test Item Value Reference Range Interpretation Comments POC A BE (test code = 5 See_Comment H [Auto mated message] The POC A BE) system which ge nerated this result transmit dewayne reference range : <=2. The reference range was not used to interpr et this result as dallin l/abnormal. [facility] CenterOuivyfvPVTHVPIZM1352-70-06 18:51:00 Test Item Value Reference Range Interpretation Comments POC A HCO3 (test code = POC A HCO3) 28 22-26 H [facility] CenterOhvbvynGDFSKPMZL3151-80-37 18:51:00 Test Item Value Reference Range Interpretation Comments POC A Glu (test code = POC A Glu) 132 70-99 H [facility] CenterXnmmqpnKUZYDYMYW1523-49-02 18:51:00 Test Item Value Reference Range Interpretation Comments POC A PCO2 (test code = POC A PCO2) 36 35-45 N [facility] CenterJfbwjbfMFZHTCJYB7821-14-97 18:51:00 Test Item Value Reference Range Interpretation Comments POC A K (test code = POC A K) 3.3 3.5-5.1 L [facility] CenterBtcszqqAUAIDCOQZ3557-70-52 18:51:00 Test Item Value Reference Range Interpretation Comments POC A Temp (test code = POC A Temp) 37.0 [facility] CenterMecgymdTOIDEYWPV2695-10-15 18:51:00 Test Item Value Reference Range Interpretation Comments POC A Na (test code = POC A Na) 135 135-145 N [facility] CenterLkprrwlIDDGAYHVP3093-25-98 18:51:00 Test Item Value Reference Range Interpretation Comments POC A pH (test code = POC A pH) 7.50 7.35-7.45 H [facility] CenterSatawwmIHJDCVANG8656-62-33 18:51:00 Test Item Value Reference Range Interpretation Comments POC A PO2 (test code = POC A PO2) 164 80-100 H [facility] CenterSfgnvrtIZBEHXEEP1995-91-34 18:51:00 Test Item Value Reference Range Interpretation Comments POC A LA (test code = POC A LA) 0.6 0.5-2.2 N [facility] CenterYpspttfGTGVTMVTL3629-18-46 18:51:00 Test Item Value Reference Range Interpretation Comments POC A Ca Ion (test code = POC A Ca Ion) 1.09 1.05-1.25 N [facility] CenterBwnjxdsOYBIAZVWS6052-23-36 18:51:00 Test Item Value Reference Range Interpretation Comments POC A Source (test code = POC A Source) ART [facility] CenterOpidukdRSCURYGKB5301-02-65 18:51:00 Test Item Value Reference Range Interpretation Comments POC A Hct (test code = POC A Hct) 27.0 36.0-48.0 L [facility] CenterWxhiaxbMFLZTXYBL5199-07-13 18:51:00 Test Item Value Reference Range Interpretation Comments POC A O2 Sat (test code = POC A O2 Sat) 100.0 95.0-100.0 N [facility] CenterPopdzwpXVKDXZSLI3164-31-10 18:51:00 Test Item Value Reference Range Interpretation Comments POC A BE (test code = 5 See_Comment H [Auto mated message] The POC A BE) system which ge nerated this result transmit dewayne reference range : <=2. The reference range was not used to interpr et this result as dallin l/abnormal. [facility] CenterHrmluumOFXJSFPPG5081-61-99 18:51:00 Test Item Value Reference Range Interpretation Comments POC A HCO3 (test code = POC A HCO3) 28 22-26 H [facility] CenterTnssfpwJYFMILWHJ6666-55-76 18:51:00 Test Item Value Reference Range Interpretation Comments POC A Glu (test code = POC A Glu) 132 70-99 H [facility] CenterHepthifPXFALSVPX3942-52-16 18:51:00 Test Item Value Reference Range Interpretation Comments POC A PCO2 (test code = POC A PCO2) 36 35-45 N [facility] CenterRbzoyjqAXKFVUINA0971-36-44 18:51:00 Test Item Value Reference Range Interpretation Comments POC A K (test code = POC A K) 3.3 3.5-5.1 L [facility] CenterGcnzixgSDXLIWREU9943-69-14 18:51:00 Test Item Value Reference Range Interpretation Comments POC A Temp (test code = POC A Temp) 37.0 [facility] CenterWdkbjzcFROUAYQMQ6203-58-51 18:51:00 Test Item Value Reference Range Interpretation Comments POC A Na (test code = POC A Na) 135 135-145 N [facility] CenterWzbrzhfSUJGITKVH6725-35-46 18:51:00 Test Item Value Reference Range Interpretation Comments POC A pH (test code = POC A pH) 7.50 7.35-7.45 H [facility] CenterJdoysioFWBGAQZZO9968-27-90 18:51:00 Test Item Value Reference Range Interpretation Comments POC A PO2 (test code = POC A PO2) 164 80-100 H [facility] CenterJeyfvnmZMGQXITOK0663-30-20 18:51:00 Test Item Value Reference Range Interpretation Comments POC A LA (test code = POC A LA) 0.6 0.5-2.2 N [facility] CenterPmutiasRNOFYHOSN9254-36-99 18:51:00 Test Item Value Reference Range Interpretation Comments POC A Ca Ion (test code = POC A Ca Ion) 1.09 1.05-1.25 N [facility] CenterCmnkzapMBJTYIKEP4925-33-25 18:51:00 Test Item Value Reference Range Interpretation Comments POC A Source (test code = POC A Source) ART [facility] CenterTzfweotFEEXLHGOW9060-96-76 18:51:00 Test Item Value Reference Range Interpretation Comments POC A Hct (test code = POC A Hct) 27.0 36.0-48.0 L [facility] CenterBmyntvmYGXEKCXLM2477-31-75 18:51:00 Test Item Value Reference Range Interpretation Comments POC A O2 Sat (test code = POC A O2 Sat) 100.0 95.0-100.0 N [facility] CenterKgjsdxcHWFARPNAW9901-63-30 18:51:00 Test Item Value Reference Range Interpretation Comments POC A BE (test code = 5 See_Comment H [Auto mated message] The POC A BE) system which ge nerated this result transmit dewayne reference range : <=2. The reference range was not used to interpr et this result as dallin l/abnormal. [facility] CenterCrrlytwBKTKWLVFA4411-65-41 18:51:00 Test Item Value Reference Range Interpretation Comments POC A HCO3 (test code = POC A HCO3) 28 22-26 H [facility] CenterSjagmoqKJRQLBGME0757-59-36 18:51:00 Test Item Value Reference Range Interpretation Comments POC A Glu (test code = POC A Glu) 132 70-99 H [facility] CenterRplalpmRWLXZRBGE6422-38-39 18:51:00 Test Item Value Reference Range Interpretation Comments POC A PCO2 (test code = POC A PCO2) 36 35-45 N [facility] CenterObdltpeXALKGKKXX1851-73-89 18:51:00 Test Item Value Reference Range Interpretation Comments POC A K (test code = POC A K) 3.3 3.5-5.1 L [facility] CenterCyqmcavWZYBKLLQN7364-57-54 18:51:00 Test Item Value Reference Range Interpretation Comments POC A Temp (test code = POC A Temp) 37.0 [facility] CenterRyewitsMXSCBWZBX6513-18-60 18:51:00 Test Item Value Reference Range Interpretation Comments POC A Na (test code = POC A Na) 135 135-145 N [facility] CenterLcgdyztWQNCEMSGI7101-94-42 18:51:00 Test Item Value Reference Range Interpretation Comments POC A pH (test code = POC A pH) 7.50 7.35-7.45 H [facility] CenterTkllaanFTHNKYOHI0517-57-74 18:51:00 Test Item Value Reference Range Interpretation Comments POC A PO2 (test code = POC A PO2) 164 80-100 H [facility] CenterQpmbnhwVAUGHEVCJ5924-49-10 18:51:00 Test Item Value Reference Range Interpretation Comments POC A LA (test code = POC A LA) 0.6 0.5-2.2 N [facility] CenterGpkwtdkDTUWLAFCZ0772-18-79 18:51:00 Test Item Value Reference Range Interpretation Comments POC A Ca Ion (test code = POC A Ca Ion) 1.09 1.05-1.25 N [facility] CenterAyblgnxHAPLEEDGW4998-93-43 18:51:00 Test Item Value Reference Range Interpretation Comments POC A Source (test code = POC A Source) ART [facility] CenterGoxdidnELPZVLWMX8323-13-21 18:51:00 Test Item Value Reference Range Interpretation Comments POC A Hct (test code = POC A Hct) 27.0 36.0-48.0 L [facility] CenterZlfkaarSOSZNSMMQ1340-00-50 18:51:00 Test Item Value Reference Range Interpretation Comments POC A O2 Sat (test code = POC A O2 Sat) 100.0 95.0-100.0 N [facility] CenterLcrjjeyBFTOPLNJS1984-01-49 18:51:00 Test Item Value Reference Range Interpretation Comments POC A BE (test code = 5 See_Comment H [Auto mated message] The POC A BE) system which ge nerated this result transmit dewayne reference range : <=2. The reference range was not used to interpr et this result as dallin l/abnormal. [facility] CenterUfuglzzTASAEKAVH8698-57-82 18:51:00 Test Item Value Reference Range Interpretation Comments POC A HCO3 (test code = POC A HCO3) 28 22-26 H [facility] CenterNkobbixEOTJBEGIF2294-15-90 18:51:00 Test Item Value Reference Range Interpretation Comments POC A Glu (test code = POC A Glu) 132 70-99 H [facility] CenterYgajcckLCMTKANTS6739-96-69 18:51:00 Test Item Value Reference Range Interpretation Comments POC A PCO2 (test code = POC A PCO2) 36 35-45 N [facility] CenterXdwgdlnQMAYYHTPC6194-04-74 18:51:00 Test Item Value Reference Range Interpretation Comments POC A K (test code = POC A K) 3.3 3.5-5.1 L [facility] CenterXfxstcsYGLOHBGKU3296-95-35 18:51:00 Test Item Value Reference Range Interpretation Comments POC A Temp (test code = POC A Temp) 37.0 [facility] CenterZymndahTZTMFZHXV0558-26-88 18:51:00 Test Item Value Reference Range Interpretation Comments POC A Na (test code = POC A Na) 135 135-145 N [facility] CenterZnosvvtRPEWLZBSD9612-40-49 18:51:00 Test Item Value Reference Range Interpretation Comments POC A pH (test code = POC A pH) 7.50 7.35-7.45 H [facility] CenterJhrxsnjEZIGJDZMF1945-11-21 18:51:00 Test Item Value Reference Range Interpretation Comments POC A PO2 (test code = POC A PO2) 164 80-100 H [facility] CenterNiiehtmEMYJFOLMA0103-25-70 18:51:00 Test Item Value Reference Range Interpretation Comments POC A LA (test code = POC A LA) 0.6 0.5-2.2 N [facility] [facility] CenterRmjjfybGTHXVXOSR4281-71-02 18:51:00 Test Item Value Reference Range Interpretation Comments POC A Ca Ion (test code = POC A Ca Ion) 1.09 1.05-1.25 [facility] CenterDenshnvGEYNGLLID7420-73-22 18:51:00 Test Item Value Reference Range Interpretation Comments POC A Source (test code = POC A Source) ART [facility] CenterUabycjuLKIZWHCTK6275-30-53 18:51:00 Test Item Value Reference Range Interpretation Comments POC A Hct (test code = POC A Hct) 27.0 36.0-48.0 L [facility] CenterGjnqsopPLLPNIYMU2351-88-22 18:51:00 Test Item Value Reference Range Interpretation Comments POC A O2 Sat (test code = POC A O2 Sat) 100.0 95.0-100.0 [facility] CenterWkjlyugEUJJIOMWD0903-30-98 18:51:00 Test Item Value Reference Range Interpretation Comments POC A BE (test code = 5 See_Comment H [Auto mated message] The POC A BE) system which ge nerated this result transmit dewayne reference range : <=2. The reference range was not used to interpr et this result as dallin l/abnormal. [facility] CenterNdqmyuiNKLWBEQXK4188-39-84 18:51:00 Test Item Value Reference Range Interpretation Comments POC A HCO3 (test code = POC A HCO3) 28 22-26 H [facility] CenterKgrtroyTYPUQPQXT1199-37-98 18:51:00 Test Item Value Reference Range Interpretation Comments POC A Glu (test code = POC A Glu) 132 70-99 H [facility] CenterEkfyrxmSXVGXLCSW6298-87-44 18:51:00 Test Item Value Reference Range Interpretation Comments POC A PCO2 (test code = POC A PCO2) 36 35-45 N [facility] CenterBvwboyyJRTSLBAWC6081-07-12 18:51:00 Test Item Value Reference Range Interpretation Comments POC A K (test code = POC A K) 3.3 3.5-5.1 L [facility] CenterAlgpgtaAFHXARQFT6333-55-24 18:51:00 Test Item Value Reference Range Interpretation Comments POC A Temp (test code = POC A Temp) 37.0 [facility] CenterJgflqnkKFPNNLVOT7433-33-47 18:51:00 Test Item Value Reference Range Interpretation Comments POC A Na (test code = POC A Na) 135 135-145 N [facility] CenterShxlrboIPFHGJACS4432-18-35 18:51:00 Test Item Value Reference Range Interpretation Comments POC A pH (test code = POC A pH) 7.50 7.35-7.45 H [facility] CenterWhnzxbsIPZAXVCNF7667-40-10 18:51:00 Test Item Value Reference Range Interpretation Comments POC A PO2 (test code = POC A PO2) 164 80-100 H [facility] CenterYxixranKHSHOUPSW6433-55-35 18:51:00 Test Item Value Reference Range Interpretation Comments POC A LA (test code = POC A LA) 0.6 0.5-2.2 N [facility] CenterCdevbokNOLZZESIU2371-32-94 18:51:00 Test Item Value Reference Range Interpretation Comments POC A Ca Ion (test code = POC A Ca Ion) 1.09 1.05-1.25 N [facility] CenterDrkhtayDNLNQGUCO1596-35-02 18:51:00 Test Item Value Reference Range Interpretation Comments POC A Source (test code = POC A Source) ART [facility] CenterDdmfixdPCQLFTVFE9850-34-53 18:51:00 Test Item Value Reference Range Interpretation Comments POC A Hct (test code = POC A Hct) 27.0 36.0-48.0 L [facility] CenterAacozxbPFPLGYSPO4248-30-96 18:51:00 Test Item Value Reference Range Interpretation Comments POC A O2 Sat (test code = POC A O2 Sat) 100.0 95.0-100.0 N [facility] CenterZbbeckoSBXETMWBQ3899-20-31 18:51:00 Test Item Value Reference Range Interpretation Comments POC A BE (test code = 5 See_Comment H [Auto mated message] The POC A BE) system which ge nerated this result transmit dewayne reference range : <=2. The reference range was not used to interpr et this result as dallin l/abnormal. [facility] CenterLfjkpifOVDZKWTDJ3019-35-47 18:51:00 Test Item Value Reference Range Interpretation Comments POC A HCO3 (test code = POC A HCO3) 28 22-26 H [facility] CenterNyuocgwMQRFXDZVG3194-35-77 18:51:00 Test Item Value Reference Range Interpretation Comments POC A Glu (test code = POC A Glu) 132 70-99 H [facility] CenterBbfcdweGKHRIGNYS9434-85-71 18:51:00 Test Item Value Reference Range Interpretation Comments POC A PCO2 (test code = POC A PCO2) 36 35-45 N [facility] CenterFxrpgngJCZQQGBPD2121-75-16 18:51:00 Test Item Value Reference Range Interpretation Comments POC A K (test code = POC A K) 3.3 3.5-5.1 L [facility] CenterEeyfxqvJOFEQYNCO8679-22-33 18:51:00 Test Item Value Reference Range Interpretation Comments POC A Temp (test code = POC A Temp) 37.0 [facility] CenterSuwhwgvBGCBNIHYF6912-54-03 18:51:00 Test Item Value Reference Range Interpretation Comments POC A Na (test code = POC A Na) 135 135-145 N [facility] CenterOlacobwLPKWCYNHY7227-04-18 18:51:00 Test Item Value Reference Range Interpretation Comments POC A pH (test code = POC A pH) 7.50 7.35-7.45 H [facility] CenterBaibzklWTCAPOPXW1136-05-60 18:51:00 Test Item Value Reference Range Interpretation Comments POC A PO2 (test code = POC A PO2) 164 80-100 H [facility] CenterUewrxuePBIZSZLQO1123-07-72 18:51:00 Test Item Value Reference Range Interpretation Comments POC A LA (test code = POC A LA) 0.6 0.5-2.2 N [facility] CenterSoymuwpFMUMKRCFD7111-23-68 18:51:00 Test Item Value Reference Range Interpretation Comments POC A Ca Ion (test code = POC A Ca Ion) 1.09 1.05-1.25 N [facility] CenterVywudtnUOZPATZMP2104-18-74 18:51:00 Test Item Value Reference Range Interpretation Comments POC A Source (test code = POC A Source) ART [facility] CenterOdmlwxoJBJLUNOLH7822-14-56 18:51:00 Test Item Value Reference Range Interpretation Comments POC A Hct (test code = POC A Hct) 27.0 36.0-48.0 L [facility] CenterGqikhomTRSIBISZQ0714-69-96 18:51:00 Test Item Value Reference Range Interpretation Comments POC A O2 Sat (test code = POC A O2 Sat) 100.0 95.0-100.0 N [facility] CenterKxbobvwNOHIOSMCM7101-58-49 18:51:00 Test Item Value Reference Range Interpretation Comments POC A BE (test code = 5 See_Comment H [Auto mated message] The POC A BE) system which ge nerated this result transmit dewayne reference range : <=2. The reference range was not used to interpr et this result as dallin l/abnormal. [facility] CenterQuplndeELNGVDRBA4373-56-16 18:51:00 Test Item Value Reference Range Interpretation Comments POC A HCO3 (test code = POC A HCO3) 28 22-26 H [facility] CenterBslugusMVGXEXAFT5070-18-07 18:51:00 Test Item Value Reference Range Interpretation Comments POC A Glu (test code = POC A Glu) 132 70-99 H [facility] CenterKcryquuKCTSVZMJQ4956-07-78 18:51:00 Test Item Value Reference Range Interpretation Comments POC A PCO2 (test code = POC A PCO2) 36 35-45 N [facility] CenterLwlbqjuIAQATKZAY0114-38-78 18:51:00 Test Item Value Reference Range Interpretation Comments POC A K (test code = POC A K) 3.3 3.5-5.1 L [facility] CenterByrtjkoHOIGHKEOX0052-72-53 18:51:00 Test Item Value Reference Range Interpretation Comments POC A Temp (test code = POC A Temp) 37.0 [facility] CenterGpyrmcbZGHMCNPID5403-26-91 18:51:00 Test Item Value Reference Range Interpretation Comments POC A Na (test code = POC A Na) 135 135-145 N [facility] CenterEhqnrhtJCPELKVRZ8105-88-27 18:51:00 Test Item Value Reference Range Interpretation Comments POC A pH (test code = POC A pH) 7.50 7.35-7.45 H [facility] CenterExiolqkZCROMTUKF1793-73-80 18:51:00 Test Item Value Reference Range Interpretation Comments POC A PO2 (test code = POC A PO2) 164 80-100 H [facility] CenterXbychriOSKKLMSDB2063-65-39 18:51:00 Test Item Value Reference Range Interpretation Comments POC A LA (test code = POC A LA) 0.6 0.5-2.2 N [facility] CenterAvuebwgREAERYFFI2273-74-78 18:51:00 Test Item Value Reference Range Interpretation Comments POC A Ca Ion (test code = POC A Ca Ion) 1.09 1.05-1.25 N [facility] CenterWgfytlzAQKPDJMLF9571-28-27 18:51:00 Test Item Value Reference Range Interpretation Comments POC A Source (test code = POC A Source) ART [facility] CenterEimlhdxBQHBQOGCF2876-70-32 18:51:00 Test Item Value Reference Range Interpretation Comments POC A Hct (test code = POC A Hct) 27.0 36.0-48.0 L [facility] CenterIforuisXDQHEUHBA4859-18-16 18:51:00 Test Item Value Reference Range Interpretation Comments POC A O2 Sat (test code = POC A O2 Sat) 100.0 95.0-100.0 N [facility] CenterIurpuqfPNQFCJWOE4918-40-37 18:51:00 Test Item Value Reference Range Interpretation Comments POC A BE (test code = 5 See_Comment H [Auto mated message] The POC A BE) system which ge nerated this result transmit dewayne reference range : <=2. The reference range was not used to interpr et this result as dallin l/abnormal. [facility] CenterAzufljsQVVASKPYO3155-80-37 18:51:00 Test Item Value Reference Range Interpretation Comments POC A HCO3 (test code = POC A HCO3) 28 22-26 H [facility] CenterEzlctwtFMAUDKEWT0331-14-86 18:51:00 Test Item Value Reference Range Interpretation Comments POC A Glu (test code = POC A Glu) 132 70-99 H [facility] CenterUezttbnVYVEKRJHD5895-91-40 18:51:00 Test Item Value Reference Range Interpretation Comments POC A PCO2 (test code = POC A PCO2) 36 35-45 N [facility] CenterIabqrevCNZBBQUHE1203-12-53 18:51:00 Test Item Value Reference Range Interpretation Comments POC A K (test code = POC A K) 3.3 3.5-5.1 L [facility] CenterXokooooOIQZYMNGE7352-94-53 18:51:00 Test Item Value Reference Range Interpretation Comments POC A Temp (test code = POC A Temp) 37.0 [facility] CenterMndorefYQAJIBPBA6228-05-08 18:51:00 Test Item Value Reference Range Interpretation Comments POC A Na (test code = POC A Na) 135 135-145 N [facility] CenterMyjcatfLQBFPIXGQ6198-22-22 18:51:00 Test Item Value Reference Range Interpretation Comments POC A pH (test code = POC A pH) 7.50 7.35-7.45 H [facility] CenterLeoabiaZXOQZITWR9017-15-11 18:51:00 Test Item Value Reference Range Interpretation Comments POC A PO2 (test code = POC A PO2) 164 80-100 H [facility] CenterTnxicmvIHMKGUUNQ8115-16-35 18:51:00 Test Item Value Reference Range Interpretation Comments POC A LA (test code = POC A LA) 0.6 0.5-2.2 N [facility] CenterQhncwyeCSEECYYSP0201-15-00 18:51:00 Test Item Value Reference Range Interpretation Comments POC A Ca Ion (test code = POC A Ca Ion) 1.09 1.05-1.25 N [facility] CenterSweojyzKLNWFOIXI9399-37-93 18:51:00 Test Item Value Reference Range Interpretation Comments POC A Source (test code = POC A Source) ART [facility] CenterScvufvpBWYPFUBGD9498-44-60 18:51:00 Test Item Value Reference Range Interpretation Comments POC A Hct (test code = POC A Hct) 27.0 36.0-48.0 L [facility] CenterQveehzaISJQKQRXX1048-63-04 18:51:00 Test Item Value Reference Range Interpretation Comments POC A O2 Sat (test code = POC A O2 Sat) 100.0 95.0-100.0 N [facility] CenterBcprudqONJLKYADI1808-53-51 18:51:00 Test Item Value Reference Range Interpretation Comments POC A BE (test code = 5 See_Comment H [Auto mated message] The POC A BE) system which ge nerated this result transmit dewayne reference range : <=2. The reference range was not used to interpr et this result as dallin l/abnormal. [facility] CenterBghkpxgIPDSZZEMJ1483-50-20 18:51:00 Test Item Value Reference Range Interpretation Comments POC A HCO3 (test code = POC A HCO3) 28 22-26 H [facility] CenterYbvparsMHWZSRNYG0440-45-43 18:51:00 Test Item Value Reference Range Interpretation Comments POC A Glu (test code = POC A Glu) 132 70-99 H [facility] CenterEcevkztKUJADEUHR7622-94-21 18:51:00 Test Item Value Reference Range Interpretation Comments POC A PCO2 (test code = POC A PCO2) 36 35-45 N [facility] CenterLlmgcucXWJHFMSXA1275-63-32 18:51:00 Test Item Value Reference Range Interpretation Comments POC A K (test code = POC A K) 3.3 3.5-5.1 L [facility] CenterVaophvmVVLEKZNZW8845-85-93 18:51:00 Test Item Value Reference Range Interpretation Comments POC A Temp (test code = POC A Temp) 37.0 [facility]PadkwjgMDRCTGNVT7268-99-33 18:51:00 Test Item Value Reference Range Interpretation Comments POC A Na (test code = POC A Na) 135 135-145 N [facility] CenterItyordhQEHJBKKUM2138-91-80 18:51:00 Test Item Value Reference Range Interpretation Comments POC A pH (test code = POC A pH) 7.50 7.35-7.45 H [facility] CenterFdxzkzqTYTDKDDSV2186-30-68 18:51:00 Test Item Value Reference Range Interpretation Comments POC A PO2 (test code = POC A PO2) 164 80-100 H [facility] CenterTnvbrgzJAGMGDQEM7352-69-71 18:51:00 Test Item Value Reference Range Interpretation Comments POC A LA (test code = POC A LA) 0.6 0.5-2.2 N [facility] CenterEsgpsbuEYLKHKELE6336-91-22 18:51:00 Test Item Value Reference Range Interpretation Comments POC A Ca Ion (test code = POC A Ca Ion) 1.09 1.05-1.25 N [facility] CenterGxvitizIZYVXXKKI3006-85-83 18:51:00 Test Item Value Reference Range Interpretation Comments POC A Source (test code = POC A Source) ART [facility] CenterLavmrwhTCJYFXAHD0157-60-47 18:51:00 Test Item Value Reference Range Interpretation Comments POC A Hct (test code = POC A Hct) 27.0 36.0-48.0 L [facility] CenterTscqsubQIUKSNKQC9407-51-47 18:51:00 Test Item Value Reference Range Interpretation Comments POC A O2 Sat (test code = POC A O2 Sat) 100.0 95.0-100.0 N [facility] CenterTrmoydxRMQOTVDZM4300-36-34 18:51:00 Test Item Value Reference Range Interpretation Comments POC A BE (test code = POC A BE) 5 <=2 H [facility] CenterZphqjkgHYNUXMZNF1308-83-82 18:51:00 Test Item Value Reference Range Interpretation Comments POC A HCO3 (test code = POC A HCO3) 28 22-26 H [facility] CenterIrjsuhuLDFCEEHVO0425-91-27 18:51:00 Test Item Value Reference Range Interpretation Comments POC A Glu (test code = POC A Glu) 132 70-99 H [facility] CenterQelrbteSUDELTHLT3534-28-17 18:51:00 Test Item Value Reference Range Interpretation Comments POC A PCO2 (test code = POC A PCO2) 36 35-45 N [facility] CenterUgycyhwQBFTLJPNX8927-42-12 18:51:00 Test Item Value Reference Range Interpretation Comments POC A K (test code = POC A K) 3.3 3.5-5.1 L [facility] CenterIkacdteJHIBVISYM7712-70-20 18:51:00 Test Item Value Reference Range Interpretation Comments POC A Temp (test code = POC A Temp) 37.0 [facility] CenterQfzakvuQTGVLHFMR1933-09-06 18:51:00 Test Item Value Reference Range Interpretation Comments POC A Na (test code = POC A Na) 135 135-145 N [facility] CenterBhpgpehCUVALERHB4588-37-29 18:51:00 Test Item Value Reference Range Interpretation Comments POC A pH (test code = POC A pH) 7.50 7.35-7.45 H [facility] CenterSqbaewwJPXHKHVHS3037-05-44 18:51:00 Test Item Value Reference Range Interpretation Comments POC A PO2 (test code = POC A PO2) 164 80-100 H [facility] CenterVeuxoemHKUTKXUMS5180-65-48 18:51:00 Test Item Value Reference Range Interpretation Comments POC A LA (test code = POC A LA) 0.6 0.5-2.2 N [facility] CenterSlonlhjKUQJMGZMD6038-34-43 18:51:00 Test Item Value Reference Range Interpretation Comments POC A Ca Ion (test code = POC A Ca Ion) 1.09 1.05-1.25 N [facility] CenterAfxdubcDXDEONCMI8902-04-46 18:51:00 Test Item Value Reference Range Interpretation Comments POC A Source (test code = POC A Source) ART [facility] CenterSinjjnpYDPGVCVSF9941-26-68 18:51:00 Test Item Value Reference Range Interpretation Comments POC A Hct (test code = POC A Hct) 27.0 36.0-48.0 L [facility] CenterVkipjnoPTPUVFZBL8465-67-09 18:51:00 Test Item Value Reference Range Interpretation Comments POC A O2 Sat (test code = POC A O2 Sat) 100.0 95.0-100.0 N [facility] CenterQxrcjeyOTOMRHFNX4678-29-63 18:51:00 Test Item Value Reference Range Interpretation Comments POC A BE (test code = 5 See_Comment H [Auto mated message] The POC A BE) system which ge nerated this result transmit dewayne reference range : <=2. The reference range was not used to interpr et this result as dallin l/abnormal. [facility] CenterPddazxfKAUFHLWQU4006-07-59 18:51:00 Test Item Value Reference Range Interpretation Comments POC A HCO3 (test code = POC A HCO3) 28 22-26 H [facility] CenterOrdvtdrKQATAHRDL4779-83-01 18:51:00 Test Item Value Reference Range Interpretation Comments POC A Glu (test code = POC A Glu) 132 70-99 H [facility] CenterJkmcdxmRDUZMPDBM0752-99-66 18:51:00 Test Item Value Reference Range Interpretation Comments POC A PCO2 (test code = POC A PCO2) 36 35-45 N [facility] CenterOezbhozAWLFYGJVJ4950-12-54 18:51:00 Test Item Value Reference Range Interpretation Comments POC A K (test code = POC A K) 3.3 3.5-5.1 L [facility] CenterShvcmxuOTLOSXWHQ7274-62-81 18:51:00 Test Item Value Reference Range Interpretation Comments POC A Temp (test code = POC A Temp) 37.0 [facility] CenterMgyufqwWDVKIDNOK5296-59-54 18:51:00 Test Item Value Reference Range Interpretation Comments POC A Na (test code = POC A Na) 135 135-145 N [facility] CenterOahwpwvKEKRCHGVA1020-88-83 18:51:00 Test Item Value Reference Range Interpretation Comments POC A pH (test code = POC A pH) 7.50 7.35-7.45 H [facility] CenterCjanllpSXEICBNIW8170-86-19 18:51:00 Test Item Value Reference Range Interpretation Comments POC A PO2 (test code = POC A PO2) 164 80-100 H [facility] CenterAekfaiyRBZZIPMTP3266-07-97 18:51:00 Test Item Value Reference Range Interpretation Comments POC A LA (test code = POC A LA) 0.6 0.5-2.2 N [facility] CenterGghmmohABKGSQIHM8636-18-52 18:51:00 Test Item Value Reference Range Interpretation Comments POC A Ca Ion (test code = POC A Ca Ion) 1.09 1.05-1.25 N [facility] CenterFxoazhdNIVOFHABU1058-06-22 18:51:00 Test Item Value Reference Range Interpretation Comments POC A Source (test code = POC A Source) ART [facility] CenterEombgkkBCJDDEXQG5785-85-96 18:51:00 Test Item Value Reference Range Interpretation Comments POC A Hct (test code = POC A Hct) 27.0 36.0-48.0 L [facility] CenterSawnaunWGYNWOSKK6404-58-47 18:51:00 Test Item Value Reference Range Interpretation Comments POC A O2 Sat (test code = POC A O2 Sat) 100.0 95.0-100.0 N [facility] CenterZqqphzdBGGGHYJAJ3457-92-95 18:51:00 Test Item Value Reference Range Interpretation Comments POC A BE (test code = 5 See_Comment H [Auto mated message] The POC A BE) system which ge nerated this result transmit dewayne reference range : <=2. The reference range was not used to interpr et this result as dallin l/abnormal. [facility] CenterUuryxzyXLBLMPULS4134-66-48 18:51:00 Test Item Value Reference Range Interpretation Comments POC A HCO3 (test code = POC A HCO3) 28 22-26 H [facility] CenterFfvfurvJOXRJEXJH2102-93-46 18:51:00 Test Item Value Reference Range Interpretation Comments POC A Glu (test code = POC A Glu) 132 70-99 H [facility] CenterOvcccixNKKZUHLMZ9230-57-97 18:51:00 Test Item Value Reference Range Interpretation Comments POC A PCO2 (test code = POC A PCO2) 36 35-45 N [facility] CenterMswexjhCVFGRKAVD0866-38-51 18:51:00 Test Item Value Reference Range Interpretation Comments POC A K (test code = POC A K) 3.3 3.5-5.1 L [facility] CenterRrylpwtZUSIPYMNX0388-82-77 18:51:00 Test Item Value Reference Range Interpretation Comments POC A Temp (test code = POC A Temp) 37.0 [facility] CenterAqzpmvpQRZUWFWJK4717-81-76 18:51:00 Test Item Value Reference Range Interpretation Comments POC A Na (test code = POC A Na) 135 135-145 N [facility] CenterRsqltrvRPVDBOFGL7624-45-72 18:51:00 Test Item Value Reference Range Interpretation Comments POC A pH (test code = POC A pH) 7.50 7.35-7.45 H [facility] CenterKwbxnvuAJEJZFEVL4592-78-39 18:51:00 Test Item Value Reference Range Interpretation Comments POC A PO2 (test code = POC A PO2) 164 80-100 H [facility] CenterJimhaqiZGRVEFIMT8448-20-16 18:51:00 Test Item Value Reference Range Interpretation Comments POC A LA (test code = POC A LA) 0.6 0.5-2.2 N [facility] CenterToowejcBIOVTUNXU2913-16-84 18:51:00 Test Item Value Reference Range Interpretation Comments POC A Ca Ion (test code = POC A Ca Ion) 1.09 1.05-1.25 N [facility] CenterXahyvmrWYRPYEBAJ1630-75-61 18:51:00 Test Item Value Reference Range Interpretation Comments POC A Source (test code = POC A Source) ART [facility] CenterOrarcrvPVQBRXCLH5512-84-11 18:51:00 Test Item Value Reference Range Interpretation Comments POC A Hct (test code = POC A Hct) 27.0 36.0-48.0 L [facility] CenterBzoxgwtVIKTKRZNO5865-91-48 18:51:00 Test Item Value Reference Range Interpretation Comments POC A O2 Sat (test code = POC A O2 Sat) 100.0 95.0-100.0 N [facility] CenterMxlczznAGWSQTKJX9501-12-49 18:51:00 Test Item Value Reference Range Interpretation Comments POC A BE (test code = 5 See_Comment H [Auto mated message] The POC A BE) system which ge nerated this result transmit dewayne reference range : <=2. The reference range was not used to interpr et this result as dallin l/abnormal. [facility] CenterUyvejqePLLHTSQPJ7270-84-35 18:51:00 Test Item Value Reference Range Interpretation Comments POC A HCO3 (test code = POC A HCO3) 28 22-26 H [facility] CenterBzgmmwyCZQHUXXIS6968-72-58 18:51:00 Test Item Value Reference Range Interpretation Comments POC A Glu (test code = POC A Glu) 132 70-99 H [facility] CenterJmwgtfrJMATFYGAX9201-98-46 18:51:00 Test Item Value Reference Range Interpretation Comments POC A PCO2 (test code = POC A PCO2) 36 35-45 N [facility] CenterMebapckAQXXMAEHK3633-45-98 18:51:00 Test Item Value Reference Range Interpretation Comments POC A K (test code = POC A K) 3.3 3.5-5.1 L [facility] CenterIdgsifwHVZAVWYNO9632-33-33 18:51:00 Test Item Value Reference Range Interpretation Comments POC A Temp (test code = POC A Temp) 37.0 [facility] CenterMovhdlwMTGIXHHDM9626-59-40 18:51:00 Test Item Value Reference Range Interpretation Comments POC A Na (test code = POC A Na) 135 135-145 N [facility] CenterEjthqygDOTBMLCSF8082-00-33 18:51:00 Test Item Value Reference Range Interpretation Comments POC A pH (test code = POC A pH) 7.50 7.35-7.45 H [facility] CenterNbnkhsgPVWNSUDDT5567-55-49 18:51:00 Test Item Value Reference Range Interpretation Comments POC A PO2 (test code = POC A PO2) 164 80-100 H [facility] CenterXliiafmOODQHOUBR5897-82-11 18:51:00 Test Item Value Reference Range Interpretation Comments POC A LA (test code = POC A LA) 0.6 0.5-2.2 N [facility] CenterUjqzxbuELQXAAVGZ7260-63-61 18:51:00 Test Item Value Reference Range Interpretation Comments POC A Ca Ion (test code = POC A Ca Ion) 1.09 1.05-1.25 N [facility] CenterNxkzjxqRFNRTSEGE7268-22-35 18:51:00 Test Item Value Reference Range Interpretation Comments POC A Source (test code = POC A Source) ART [facility] CenterQpmzhuwFQOBOWZIJ5734-20-16 18:51:00 Test Item Value Reference Range Interpretation Comments POC A Hct (test code = POC A Hct) 27.0 36.0-48.0 L [facility] CenterKbiwsawXVWHKYMNU1500-88-31 18:51:00 Test Item Value Reference Range Interpretation Comments POC A O2 Sat (test code = POC A O2 Sat) 100.0 95.0-100.0 N [facility] CenterRwncayyZJKVHTELJ6843-60-52 18:51:00 Test Item Value Reference Range Interpretation Comments POC A BE (test code = 5 See_Comment H [Auto mated message] The POC A BE) system which ge nerated this result transmit dewayne reference range : <=2. The reference range was not used to interpr et this result as dallin l/abnormal. [facility] CenterOpjahlcWAHLWCLFU1648-41-14 18:51:00 Test Item Value Reference Range Interpretation Comments POC A HCO3 (test code = POC A HCO3) 28 22-26 H [facility] CenterWtwfkfvBMSITGGBW5148-90-01 18:51:00 Test Item Value Reference Range Interpretation Comments POC A Glu (test code = POC A Glu) 132 70-99 H [facility] CenterFqnctjaGALZSPYOU2905-36-15 18:51:00 Test Item Value Reference Range Interpretation Comments POC A PCO2 (test code = POC A PCO2) 36 35-45 N [facility] CenterVpgvgntGMCHAAZMP4478-89-23 18:51:00 Test Item Value Reference Range Interpretation Comments POC A K (test code = POC A K) 3.3 3.5-5.1 L [facility] CenterTkzbgxvLKCZTQXLL5707-25-96 18:51:00 Test Item Value Reference Range Interpretation Comments POC A Temp (test code = POC A Temp) 37.0 [facility] CenterUxotssqAOHYRVADB6871-23-82 18:51:00 Test Item Value Reference Range Interpretation Comments POC A Na (test code = POC A Na) 135 135-145 N [facility]XkkxajsGRNBGXEFT2834-73-49 18:51:00 Test Item Value Reference Range Interpretation Comments POC A pH (test code = POC A pH) 7.50 7.35-7.45 [facility] CenterZmyxikeWBGXTELPS4862-96-85 18:51:00 Test Item Value Reference Range Interpretation Comments POC A PO2 (test code = POC A PO2) 164 80-100 H [facility] CenterUuiuwcjLLOJPHMWS8272-46-82 18:51:00 Test Item Value Reference Range Interpretation Comments POC A LA (test code = POC A LA) 0.6 0.5-2.2 N [facility] CenterDoocvcqPRRWDJPOZ5546-55-16 18:51:00 Test Item Value Reference Range Interpretation Comments POC A Ca Ion (test code = POC A Ca Ion) 1.09 1.05-1.25 N [facility] CenterQnhyqldSZRYWQWZC8356-81-28 18:51:00 Test Item Value Reference Range Interpretation Comments POC A Source (test code = POC A Source) ART [facility] CenterOfsbcshYVIYRBDYG1803-72-98 18:51:00 Test Item Value Reference Range Interpretation Comments POC A Hct (test code = POC A Hct) 27.0 36.0-48.0 L [facility] CenterXsqzeecBUUTVEXSG8071-63-71 18:51:00 Test Item Value Reference Range Interpretation Comments POC A O2 Sat (test code = POC A O2 Sat) 100.0 95.0-100.0 N [facility] CenterRijqrgjOSHHQPNCW4004-60-76 18:51:00 Test Item Value Reference Range Interpretation Comments POC A BE (test code = 5 See_Comment H [Auto mated message] The POC A BE) system which ge nerated this result transmit dewayne reference range : <=2. The reference range was not used to interpr et this result as dallin l/abnormal. [facility] CenterZotgtxmZTNWYXFKM8331-02-55 18:51:00 Test Item Value Reference Range Interpretation Comments POC A HCO3 (test code = POC A HCO3) 28 22-26 H [facility] CenterUmjkfbgTHZESVAWP3358-39-10 18:51:00 Test Item Value Reference Range Interpretation Comments POC A Glu (test code = POC A Glu) 132 70-99 H [facility] CenterTicnccmNDFCLBNTG8243-20-12 18:51:00 Test Item Value Reference Range Interpretation Comments POC A PCO2 (test code = POC A PCO2) 36 35-45 N [facility] CenterDcnjraoMGLUHHFBJ5877-62-97 18:51:00 Test Item Value Reference Range Interpretation Comments POC A K (test code = POC A K) 3.3 3.5-5.1 L [facility] CenterXbntfjpNWSRERKRF5246-61-66 18:51:00 Test Item Value Reference Range Interpretation Comments POC A Temp (test code = POC A Temp) 37.0 [facility] CenterKijkdeaDALCJVUJA3885-19-38 18:51:00 Test Item Value Reference Range Interpretation Comments POC A Na (test code = POC A Na) 135 135-145 N [facility] CenterWrlotrxEAGZBMFOJ6563-67-38 18:51:00 Test Item Value Reference Range Interpretation Comments POC A pH (test code = POC A pH) 7.50 7.35-7.45 H [facility] CenterMvjwgevZHCDHQVXH8175-25-88 18:51:00 Test Item Value Reference Range Interpretation Comments POC A PO2 (test code = POC A PO2) 164 80-100 H [facility] CenterTvsrgcfKAZYQDYJQ6495-38-89 18:51:00 Test Item Value Reference Range Interpretation Comments POC A LA (test code = POC A LA) 0.6 0.5-2.2 N [facility] CenterPqyljrvHFBZCFBEW7175-53-42 18:51:00 Test Item Value Reference Range Interpretation Comments POC A Ca Ion (test code = POC A Ca Ion) 1.09 1.05-1.25 N [place] [address]-01-24 18:51:00 Test Item Value Reference Range Interpretation Comments POC A Source (test code = POC A Source) ART [facility] CenterMjypdwxRRCGTZFMD2416-57-78 18:51:00 Test Item Value Reference Range Interpretation Comments POC A Hct (test code = POC A Hct) 27.0 36.0-48.0 L [facility] CenterQhtqtmaJHLYRQMJB3001-24-41 18:51:00 Test Item Value Reference Range Interpretation Comments POC A O2 Sat (test code = POC A O2 Sat) 100.0 95.0-100.0 N [facility] CenterOpzgugbPSZFROCNK5493-03-08 18:51:00 Test Item Value Reference Range Interpretation Comments POC A BE (test code = 5 See_Comment H [Auto mated message] The POC A BE) system which ge nerated this result transmit dewayne reference range : <=2. The reference range was not used to interpr et this result as dallin l/abnormal. [facility] CenterCaqmmzmDJAGBKFOJ5486-82-19 18:51:00 Test Item Value Reference Range Interpretation Comments POC A HCO3 (test code = POC A HCO3) 28 22-26 H [facility] CenterMsmevyvDQFVNIHXK0586-38-11 18:51:00 Test Item Value Reference Range Interpretation Comments POC A Glu (test code = POC A Glu) 132 70-99 H [facility] CenterZfajheqRIAEXYRCR5007-42-00 18:51:00 Test Item Value Reference Range Interpretation Comments POC A PCO2 (test code = POC A PCO2) 36 35-45 N [facility] CenterUshdulvCSKLTYDZN5661-52-17 18:51:00 Test Item Value Reference Range Interpretation Comments POC A K (test code = POC A K) 3.3 3.5-5.1 L [facility] CenterCcvhbhzBJNIBREMY2255-11-61 18:51:00 Test Item Value Reference Range Interpretation Comments POC A Temp (test code = POC A Temp) 37.0 [facility] CenterSdbxylpLIJVOBZJY0728-09-60 18:51:00 Test Item Value Reference Range Interpretation Comments POC A Na (test code = POC A Na) 135 135-145 N [facility] CenterSqkkbirUFROCSZIU1805-41-80 18:51:00 Test Item Value Reference Range Interpretation Comments POC A pH (test code = POC A pH) 7.50 7.35-7.45 H [facility] CenterBwvovulUMGZGVAEW8866-91-50 18:51:00 Test Item Value Reference Range Interpretation Comments POC A PO2 (test code = POC A PO2) 164 80-100 H [facility] CenterLppvcksIRTNQJCNA6217-03-14 18:51:00 Test Item Value Reference Range Interpretation Comments POC A LA (test code = POC A LA) 0.6 0.5-2.2 N [facility] CenterVgefnmlLBHCVIMYS2872-20-24 18:51:00 Test Item Value Reference Range Interpretation Comments POC A Ca Ion (test code = POC A Ca Ion) 1.09 1.05-1.25 N [facility] CenterLmxzmhdMOUCIVZZV8236-41-45 18:51:00 Test Item Value Reference Range Interpretation Comments POC A Source (test code = POC A Source) ART [facility] CenterSehxflyDXGLTMQYN5074-32-03 18:51:00 Test Item Value Reference Range Interpretation Comments POC A Hct (test code = POC A Hct) 27.0 36.0-48.0 L [facility] CenterAdxvdhyTOMDCRYSP8016-18-25 18:51:00 Test Item Value Reference Range Interpretation Comments POC A O2 Sat (test code = POC A O2 Sat) 100.0 95.0-100.0 N [facility] CenterGswvspvKIMNMUACP7999-84-64 18:51:00 Test Item Value Reference Range Interpretation Comments POC A BE (test code = 5 See_Comment H [Auto mated message] The POC A BE) system which ge nerated this result transmit dewayne reference range : <=2. The reference range was not used to interpr et this result as dallin l/abnormal. [facility] CenterKmvmahkKCKMRVIVT2385-03-19 18:51:00 Test Item Value Reference Range Interpretation Comments POC A HCO3 (test code = POC A HCO3) 28 22-26 H [facility] CenterGcplkzfJMFBTBBBE2865-23-66 18:51:00 Test Item Value Reference Range Interpretation Comments POC A Glu (test code = POC A Glu) 132 70-99 H [facility] CenterZxykbqhKYWOKLOVR1634-16-03 18:51:00 Test Item Value Reference Range Interpretation Comments POC A PCO2 (test code = POC A PCO2) 36 35-45 N [facility] CenterEaxggmlEBANQWRVT7676-54-74 18:51:00 Test Item Value Reference Range Interpretation Comments POC A K (test code = POC A K) 3.3 3.5-5.1 L [facility] CenterYsdrelfHTCLIKCBU7569-62-83 18:51:00 Test Item Value Reference Range Interpretation Comments POC A Temp (test code = POC A Temp) 37.0 [facility] CenterMvvgsntRCNRBEXKS8729-46-06 18:51:00 Test Item Value Reference Range Interpretation Comments POC A Na (test code = POC A Na) 135 135-145 N [facility] CenterZmahejfBVSOBJOXL7788-34-35 18:51:00 Test Item Value Reference Range Interpretation Comments POC A pH (test code = POC A pH) 7.50 7.35-7.45 H [facility] CenterLzlzmroNXSGGWUNY7668-83-23 18:51:00 Test Item Value Reference Range Interpretation Comments POC A PO2 (test code = POC A PO2) 164 80-100 H [facility] CenterEhwhnmiXQAGBBBGU3467-87-98 18:51:00 Test Item Value Reference Range Interpretation Comments POC A LA (test code = POC A LA) 0.6 0.5-2.2 N [facility] CenterWzkqzaxDXCPERITH1670-02-10 18:51:00 Test Item Value Reference Range Interpretation Comments POC A Ca Ion (test code = POC A Ca Ion) 1.09 1.05-1.25 N [facility] CenterNbtodeyMZNOEXXFG1151-11-78 18:51:00 Test Item Value Reference Range Interpretation Comments POC A Source (test code = POC A Source) ART [facility] CenterXcamuniRDNOHUHGY2534-71-23 18:51:00 Test Item Value Reference Range Interpretation Comments POC A Hct (test code = POC A Hct) 27.0 36.0-48.0 L [facility] CenterNgofjjrUYJGSYZLJ3139-41-46 18:51:00 Test Item Value Reference Range Interpretation Comments POC A O2 Sat (test code = POC A O2 Sat) 100.0 95.0-100.0 N [facility] CenterTzfudtvVKXBXUHKV0510-20-83 18:51:00 Test Item Value Reference Range Interpretation Comments POC A BE (test code = 5 See_Comment H [Auto mated message] The POC A BE) system which ge nerated this result transmit dewayne reference range : <=2. The reference range was not used to interpr et this result as dallin l/abnormal. [facility] CenterIbzoemxNEQNFQGVL1054-46-37 18:51:00 Test Item Value Reference Range Interpretation Comments POC A HCO3 (test code = POC A HCO3) 28 22-26 H [facility] CenterNxodgkwISICZCEHH0991-45-34 18:51:00 Test Item Value Reference Range Interpretation Comments POC A Glu (test code = POC A Glu) 132 70-99 H [facility] CenterBnbxdmqVKCZJIIZV9657-01-27 18:51:00 Test Item Value Reference Range Interpretation Comments POC A PCO2 (test code = POC A PCO2) 36 35-45 N [facility] CenterSlgvtqjUWZSJUUID3132-42-53 18:51:00 Test Item Value Reference Range Interpretation Comments POC A K (test code = POC A K) 3.3 3.5-5.1 L [facility] CenterSmkltwtEETNCCDJW9550-95-59 18:51:00 Test Item Value Reference Range Interpretation Comments POC A Temp (test code = POC A Temp) 37.0 [facility] CenterWhqbcvpLARZVQOEG4258-44-15 18:51:00 Test Item Value Reference Range Interpretation Comments POC A Na (test code = POC A Na) 135 135-145 N [facility] CenterSqfihwfOYBMFDDJR4264-11-54 18:51:00 Test Item Value Reference Range Interpretation Comments POC A pH (test code = POC A pH) 7.50 7.35-7.45 H [facility] CenterRqdzbibZIHYOAJGK3792-33-23 18:51:00 Test Item Value Reference Range Interpretation Comments POC A PO2 (test code = POC A PO2) 164 80-100 H [facility] CenterSqkhwuvSYCHADFQA6031-80-91 18:51:00 Test Item Value Reference Range Interpretation Comments POC A LA (test code = POC A LA) 0.6 0.5-2.2 N [facility] CenterHdqxkmkDSUVIWTXY0630-39-30 18:51:00 Test Item Value Reference Range Interpretation Comments POC A Ca Ion (test code = POC A Ca Ion) 1.09 1.05-1.25 N [facility] CenterHdziwjdKUWWRUPKO6325-85-47 18:51:00 Test Item Value Reference Range Interpretation Comments POC A Source (test code = POC A Source) ART [facility] CenterNejqcfsYXIKLQVJT4886-41-35 18:51:00 Test Item Value Reference Range Interpretation Comments POC A Hct (test code = POC A Hct) 27.0 36.0-48.0 L [facility] CenterIvbtatwOTKKUYKHF2181-85-17 18:51:00 Test Item Value Reference Range Interpretation Comments POC A O2 Sat (test code = POC A O2 Sat) 100.0 95.0-100.0 N [facility] CenterHxmqddpDJWAZUPLQ3705-27-46 18:51:00 Test Item Value Reference Range Interpretation Comments POC A BE (test code = 5 See_Comment H [Auto mated message] The POC A BE) system which ge nerated this result transmit dewayne reference range : <=2. The reference range was not used to interpr et this result as dallin l/abnormal. [facility] CenterRysjcgnDRKHCCZNE3984-53-23 18:51:00 Test Item Value Reference Range Interpretation Comments POC A HCO3 (test code = POC A HCO3) 28 22-26 H [facility] CenterXqraswkPPCOCVCXZ0739-01-82 18:51:00 Test Item Value Reference Range Interpretation Comments POC A Glu (test code = POC A Glu) 132 70-99 H [facility] CenterYhxffzvRARWVSSLE5417-69-37 18:51:00 Test Item Value Reference Range Interpretation Comments POC A PCO2 (test code = POC A PCO2) 36 35-45 N [facility] CenterHvdcpksTBEOBYSWS6711-04-76 18:51:00 Test Item Value Reference Range Interpretation Comments POC A K (test code = POC A K) 3.3 3.5-5.1 L [facility] CenterIdbvrmbPEEOPTYLO2103-67-71 18:51:00 Test Item Value Reference Range Interpretation Comments POC A Temp (test code = POC A Temp) 37.0 [facility] CenterWuzgkjjICYPMJXWU2201-67-49 18:51:00 Test Item Value Reference Range Interpretation Comments POC A Na (test code = POC A Na) 135 135-145 N [facility] CenterDrcsqvoMGYYLBOCN2703-97-97 18:51:00 Test Item Value Reference Range Interpretation Comments POC A pH (test code = POC A pH) 7.50 7.35-7.45 H [facility] CenterYoxhgomYFHPEITHH9541-26-26 18:51:00 Test Item Value Reference Range Interpretation Comments POC A PO2 (test code = POC A PO2) 164 80-100 H [facility] CenterNxigupcBOVPOAVYP1950-85-10 18:51:00 Test Item Value Reference Range Interpretation Comments POC A LA (test code = POC A LA) 0.6 0.5-2.2 N [facility] CenterPxigsfjDQMGENRMD9953-38-80 18:51:00 Test Item Value Reference Range Interpretation Comments POC A Ca Ion (test code = POC A Ca Ion) 1.09 1.05-1.25 N [facility] CenterTawezwdSOZVYSAFN3357-47-11 18:51:00 Test Item Value Reference Range Interpretation Comments POC A Source (test code = POC A Source) ART [facility] CenterXaprusbZLOOADIZF9504-24-30 18:51:00 Test Item Value Reference Range Interpretation Comments POC A Hct (test code = POC A Hct) 27.0 36.0-48.0 L [facility] CenterYptomfxGJYWWDEFT8382-84-61 18:51:00 Test Item Value Reference Range Interpretation Comments POC A O2 Sat (test code = POC A O2 Sat) 100.0 95.0-100.0 N [facility] CenterOvuiisnUZFVCNGDI9557-55-07 18:51:00 Test Item Value Reference Range Interpretation Comments POC A BE (test code = 5 See_Comment H [Auto mated message] The POC A BE) system which ge nerated this result transmit dewayne reference range : <=2. The reference range was not used to interpr et this result as dallin l/abnormal. [facility] CenterSywmhkgLIKTZIYXV8942-26-42 18:51:00 Test Item Value Reference Range Interpretation Comments POC A HCO3 (test code = POC A HCO3) 28 22-26 H [facility] CenterUcyqifwLDKPAVFPR8657-61-45 18:51:00 Test Item Value Reference Range Interpretation Comments POC A Glu (test code = POC A Glu) 132 70-99 H [facility] CenterYcsicwaCTDZXBQRG1642-92-52 18:51:00 Test Item Value Reference Range Interpretation Comments POC A PCO2 (test code = POC A PCO2) 36 35-45 N [facility] CenterDlbuwbjSJIFZJIBA1215-75-12 18:51:00 Test Item Value Reference Range Interpretation Comments POC A K (test code = POC A K) 3.3 3.5-5.1 L [facility] CenterKtnmtjzGOXEHQEJA8924-55-12 18:51:00 Test Item Value Reference Range Interpretation Comments POC A Temp (test code = POC A Temp) 37.0 [facility] CenterDbwwdacCWURNSLJE0531-49-82 18:51:00 Test Item Value Reference Range Interpretation Comments POC A Na (test code = POC A Na) 135 135-145 N [facility] CenterKarhmgzSLWABVRIR7641-81-19 18:51:00 Test Item Value Reference Range Interpretation Comments POC A pH (test code = POC A pH) 7.50 7.35-7.45 H [facility] CenterYytdatkCAKGVDSZI0653-48-81 18:51:00 Test Item Value Reference Range Interpretation Comments POC A PO2 (test code = POC A PO2) 164 80-100 H [facility] CenterFzutyzxLYZTCKLUS3664-65-60 18:51:00 Test Item Value Reference Range Interpretation Comments POC A LA (test code = POC A LA) 0.6 0.5-2.2 N [facility] CenterTxuvatoIRRZYGDMO5220-64-19 18:51:00 Test Item Value Reference Range Interpretation Comments POC A Ca Ion (test code = POC A Ca Ion) 1.09 1.05-1.25 N [facility] CenterMmramcqJIYEIYWXJ8247-78-30 18:51:00 Test Item Value Reference Range Interpretation Comments POC A Source (test code = POC A Source) ART [facility] CenterRdhoilqGENTTDYXM5579-99-75 18:51:00 Test Item Value Reference Range Interpretation Comments POC A Hct (test code = POC A Hct) 27.0 36.0-48.0 L [facility] CenterWbkbvviADIAGARIU8143-39-43 18:51:00 Test Item Value Reference Range Interpretation Comments POC A O2 Sat (test code = POC A O2 Sat) 100.0 95.0-100.0 N [facility] CenterVgqlivoREAIFPCKU8521-09-87 18:51:00 Test Item Value Reference Range Interpretation Comments POC A BE (test code = POC A BE) 5 <=2 H [facility] CenterCnbquufDCLWWRYYV7911-60-72 18:51:00 Test Item Value Reference Range Interpretation Comments POC A HCO3 (test code = POC A HCO3) 28 22-26 H [facility] CenterNkhzjhgWTFEVIMIF9143-50-02 18:51:00 Test Item Value Reference Range Interpretation Comments POC A Glu (test code = POC A Glu) 132 70-99 H [facility] CenterPvgnqyiCQKHGHANF4050-19-98 18:51:00 Test Item Value Reference Range Interpretation Comments POC A PCO2 (test code = POC A PCO2) 36 35-45 N [facility] CenterXsioteoGCBRTRCFN4778-96-56 18:51:00 Test Item Value Reference Range Interpretation Comments POC A K (test code = POC A K) 3.3 3.5-5.1 L [facility] CenterUmzcjryHHQYLPKQA6690-53-38 18:51:00 Test Item Value Reference Range Interpretation Comments POC A Temp (test code = POC A Temp) 37.0 [facility] CenterRctfieyGAKLJOAHA2135-15-91 18:51:00 Test Item Value Reference Range Interpretation Comments POC A Na (test code = POC A Na) 135 135-145 N [facility] CenterCvavqssCSZBJJNJD7753-61-43 18:51:00 Test Item Value Reference Range Interpretation Comments POC A pH (test code = POC A pH) 7.50 7.35-7.45 H [facility] CenterVlvzfdeESAYTLFGE6447-33-61 18:51:00 Test Item Value Reference Range Interpretation Comments POC A PO2 (test code = POC A PO2) 164 80-100 H [facility] CenterJfmsdceNIKDGEFNM1830-06-24 18:51:00 Test Item Value Reference Range Interpretation Comments POC A LA (test code = POC A LA) 0.6 0.5-2.2 N [facility] CenterEmebryzZWNPSSMZV2118-61-25 18:51:00 Test Item Value Reference Range Interpretation Comments POC A Ca Ion (test code = POC A Ca Ion) 1.09 1.05-1.25 N [facility] CenterLmisyvvTLFBVGHZK0545-24-76 18:51:00 Test Item Value Reference Range Interpretation Comments POC A Source (test code = POC A Source) ART [facility] CenterPddnyspWNILGFKTL8467-36-02 18:51:00 Test Item Value Reference Range Interpretation Comments POC A Hct (test code = POC A Hct) 27.0 36.0-48.0 L [facility] CenterTnlbaxzCKTDIAZZF8415-03-65 18:51:00 Test Item Value Reference Range Interpretation Comments POC A O2 Sat (test code = POC A O2 Sat) 100.0 95.0-100.0 N [facility] CenterJwdclsjUAUPKWHSL9816-60-28 18:51:00 Test Item Value Reference Range Interpretation Comments POC A BE (test code = 5 See_Comment H [Auto mated message] The POC A BE) system which ge nerated this result transmit dewayne reference range : <=2. The reference range was not used to interpr et this result as dallin l/abnormal. [facility] CenterGdpiolkHDLRJYCCJ4306-36-78 18:51:00 Test Item Value Reference Range Interpretation Comments POC A HCO3 (test code = POC A HCO3) 28 22-26 H [facility] CenterDqucczqYKTOZKTGB3315-06-20 18:51:00 Test Item Value Reference Range Interpretation Comments POC A Glu (test code = POC A Glu) 132 70-99 H [facility] CenterIohuxciMRUQBAIWP8939-09-43 18:51:00 Test Item Value Reference Range Interpretation Comments POC A PCO2 (test code = POC A PCO2) 36 35-45 N [facility] CenterCrgcdwxXOXEADLLN0502-72-16 18:51:00 Test Item Value Reference Range Interpretation Comments POC A K (test code = POC A K) 3.3 3.5-5.1 L [facility] CenterVqycvwxIRKHOSZUU7414-95-86 18:51:00 Test Item Value Reference Range Interpretation Comments POC A Temp (test code = POC A Temp) 37.0 [facility] CenterPsfiobeSMAPZRIHZ0728-84-19 18:51:00 Test Item Value Reference Range Interpretation Comments POC A Na (test code = POC A Na) 135 135-145 N [facility] CenterUgudsoiKKZJVRCLL0524-75-76 18:51:00 Test Item Value Reference Range Interpretation Comments POC A pH (test code = POC A pH) 7.50 7.35-7.45 H [facility] CenterRgnhopmNOLATKPKG2552-70-96 18:51:00 Test Item Value Reference Range Interpretation Comments POC A PO2 (test code = POC A PO2) 164 80-100 H [facility] CenterTrawaxhOAMJVGPKD1224-02-37 18:51:00 Test Item Value Reference Range Interpretation Comments POC A LA (test code = POC A LA) 0.6 0.5-2.2 N [facility] CenterPbgieuqODSAFRDKA7793-08-73 18:51:00 Test Item Value Reference Range Interpretation Comments POC A Ca Ion (test code = POC A Ca Ion) 1.09 1.05-1.25 N [facility] CenterVbwmdteLHGNFIWLT8614-97-14 18:51:00 Test Item Value Reference Range Interpretation Comments POC A Source (test code = POC A Source) ART [facility] CenterXtpwppkLQOOMICLA8352-48-12 18:51:00 Test Item Value Reference Range Interpretation Comments POC A Hct (test code = POC A Hct) 27.0 36.0-48.0 L [facility] CenterOaiwngdIRAUPAONZ5681-34-61 18:51:00 Test Item Value Reference Range Interpretation Comments POC A O2 Sat (test code = POC A O2 Sat) 100.0 95.0-100.0 N [facility] CenterPugdwtyYHFDMKLLC2486-68-99 18:51:00 Test Item Value Reference Range Interpretation Comments POC A BE (test code = 5 See_Comment H [Auto mated message] The POC A BE) system which ge nerated this result transmit dewayne reference range : <=2. The reference range was not used to interpr et this result as dallin l/abnormal. [facility] CenterVfebcjaMATWNKQQB6656-13-20 18:51:00 Test Item Value Reference Range Interpretation Comments POC A HCO3 (test code = POC A HCO3) 28 22-26 H [facility] CenterOdhrrsjNFBZQRABJ5314-93-85 18:51:00 Test Item Value Reference Range Interpretation Comments POC A Glu (test code = POC A Glu) 132 70-99 H [facility] CenterUdwhwhhMJBZWSPJR3569-63-79 18:51:00 Test Item Value Reference Range Interpretation Comments POC A PCO2 (test code = POC A PCO2) 36 35-45 N [facility] CenterAvppmhkBTWKMJKAV0391-30-19 18:51:00 Test Item Value Reference Range Interpretation Comments POC A K (test code = POC A K) 3.3 3.5-5.1 L [facility] CenterDjkwtzaKBTBYNDQY3282-85-98 18:51:00 Test Item Value Reference Range Interpretation Comments POC A Temp (test code = POC A Temp) 37.0 [facility] CenterLowvhlqWZVWJYGPX7614-47-94 18:51:00 Test Item Value Reference Range Interpretation Comments POC A Na (test code = POC A Na) 135 135-145 N [facility] CenterRqwuvvkHPETXEXUD3088-64-89 18:51:00 Test Item Value Reference Range Interpretation Comments POC A pH (test code = POC A pH) 7.50 7.35-7.45 H [facility] CenterGptgljbFYLOZXZCY4058-51-95 18:51:00 Test Item Value Reference Range Interpretation Comments POC A PO2 (test code = POC A PO2) 164 80-100 H [facility] CenterPvopzasGGIWDIAOA5339-06-36 18:51:00 Test Item Value Reference Range Interpretation Comments POC A LA (test code = POC A LA) 0.6 0.5-2.2 N [facility] CenterJkqhjsjYAKEVNEVC3743-56-02 18:51:00 Test Item Value Reference Range Interpretation Comments POC A Ca Ion (test code = POC A Ca Ion) 1.09 1.05-1.25 N [facility] CenterIcsrnhxTOMWKQJNU4990-15-49 18:51:00 Test Item Value Reference Range Interpretation Comments POC A Source (test code = POC A Source) ART [facility] CenterMykxbuyAJKEQRSXD5436-37-57 18:51:00 Test Item Value Reference Range Interpretation Comments POC A Hct (test code = POC A Hct) 27.0 36.0-48.0 L [facility] CenterBbbqbkaWPYYGEWZA9217-83-04 18:51:00 Test Item Value Reference Range Interpretation Comments POC A O2 Sat (test code = POC A O2 Sat) 100.0 95.0-100.0 N [facility] CenterMdltcooHROVVIQLV4883-18-37 18:51:00 Test Item Value Reference Range Interpretation Comments POC A BE (test code = 5 See_Comment H [Auto mated message] The POC A BE) system which ge nerated this result transmit dewayne reference range : <=2. The reference range was not used to interpr et this result as dallin l/abnormal. [facility] CenterOsqwtesYEWHXTFED2293-50-66 18:51:00 Test Item Value Reference Range Interpretation Comments POC A HCO3 (test code = POC A HCO3) 28 22-26 H [facility] CenterTvgheydAXKSDHQJS5617-29-15 18:51:00 Test Item Value Reference Range Interpretation Comments POC A Glu (test code = POC A Glu) 132 70-99 H [facility] CenterBlhsrnfRWLJVIAPW1604-87-91 18:51:00 Test Item Value Reference Range Interpretation Comments POC A PCO2 (test code = POC A PCO2) 36 35-45 N [facility] CenterUnrctruKHUPIIDSJ0718-53-05 18:51:00 Test Item Value Reference Range Interpretation Comments POC A K (test code = POC A K) 3.3 3.5-5.1 L [facility] CenterVxeuecvFWLCJEGRJ3956-52-62 18:51:00 Test Item Value Reference Range Interpretation Comments POC A Temp (test code = POC A Temp) 37.0 [facility] CenterJhizhhnCOHEWACAJ5799-61-48 18:51:00 Test Item Value Reference Range Interpretation Comments POC A Na (test code = POC A Na) 135 135-145 N [facility] CenterYshqdkbEMPCEPOOH3419-30-57 18:51:00 Test Item Value Reference Range Interpretation Comments POC A pH (test code = POC A pH) 7.50 7.35-7.45 H [facility] CenterVaomsblRNGUCJNCS8658-52-13 18:51:00 Test Item Value Reference Range Interpretation Comments POC A PO2 (test code = POC A PO2) 164 80-100 H [facility] CenterJzrgiyrFGPLYZCWQ9896-18-15 18:51:00 Test Item Value Reference Range Interpretation Comments POC A LA (test code = POC A LA) 0.6 0.5-2.2 N [facility] CenterThnfvtdLRFMUKFPM0236-87-62 18:51:00 Test Item Value Reference Range Interpretation Comments POC A Ca Ion (test code = POC A Ca Ion) 1.09 1.05-1.25 N [facility] CenterEwekrrwQYEQFAFFG4043-30-10 18:51:00 Test Item Value Reference Range Interpretation Comments POC A Source (test code = POC A Source) ART [facility] CenterGaboriwCHKNBWXSG1942-53-70 18:51:00 Test Item Value Reference Range Interpretation Comments POC A Hct (test code = POC A Hct) 27.0 36.0-48.0 L [facility] CenterKggdlmnQMHAVIQMM1774-03-35 18:51:00 Test Item Value Reference Range Interpretation Comments POC A O2 Sat (test code = POC A O2 Sat) 100.0 95.0-100.0 N [facility] CenterFjmrotbULQWETQOD9036-27-09 18:51:00 Test Item Value Reference Range Interpretation Comments POC A BE (test code = 5 See_Comment H [Auto mated message] The POC A BE) system which ge nerated this result transmit dewayne reference range : <=2. The reference range was not used to interpr et this result as dallin l/abnormal. [facility] CenterRlumijrVHYHLUSYD7799-38-12 18:51:00 Test Item Value Reference Range Interpretation Comments POC A HCO3 (test code = POC A HCO3) 28 22-26 H [facility] CenterZkxtgclKAMLBZIVA6381-14-18 18:51:00 Test Item Value Reference Range Interpretation Comments POC A Glu (test code = POC A Glu) 132 70-99 H [facility] CenterTtpvrshPSNQDJVNF1897-91-49 18:51:00 Test Item Value Reference Range Interpretation Comments POC A PCO2 (test code = POC A PCO2) 36 35-45 N [facility] CenterFqdlgofKTECVLCHD1843-57-63 18:51:00 Test Item Value Reference Range Interpretation Comments POC A K (test code = POC A K) 3.3 3.5-5.1 L [facility] CenterUcxbpvmGXTXBZOIM2115-91-81 18:51:00 Test Item Value Reference Range Interpretation Comments POC A Temp (test code = POC A Temp) 37.0 [facility] CenterFhcelbqEMJWKEHAC0684-33-76 18:51:00 Test Item Value Reference Range Interpretation Comments POC A Na (test code = POC A Na) 135 135-145 N [facility] CenterCvqjbajCXCRVGMLO8053-78-85 18:51:00 Test Item Value Reference Range Interpretation Comments POC A pH (test code = POC A pH) 7.50 7.35-7.45 H [facility] CenterWnfeounUYWFKIGED4647-75-69 18:51:00 Test Item Value Reference Range Interpretation Comments POC A PO2 (test code = POC A PO2) 164 80-100 H [facility] CenterQncxypnGFXRAARFI1894-64-46 18:51:00 Test Item Value Reference Range Interpretation Comments POC A LA (test code = POC A LA) 0.6 0.5-2.2 N [facility] CenterLpgpxpuYJVORVWPA4011-79-43 18:51:00 Test Item Value Reference Range Interpretation Comments POC A Ca Ion (test code = POC A Ca Ion) 1.09 1.05-1.25 N [facility] CenterFyqlbseJXESRPVJR6722-92-96 18:51:00 Test Item Value Reference Range Interpretation Comments POC A Source (test code = POC A Source) ART [facility] CenterYuaxsnrLYXBJZFLU4917-23-79 18:51:00 Test Item Value Reference Range Interpretation Comments POC A Hct (test code = POC A Hct) 27.0 36.0-48.0 L [facility] CenterEpwhyvpFUJHEOSBD1661-70-89 18:51:00 Test Item Value Reference Range Interpretation Comments POC A O2 Sat (test code = POC A O2 Sat) 100.0 95.0-100.0 N [facility] CenterShpkabbXMVZYXGOB9178-79-11 18:51:00 Test Item Value Reference Range Interpretation Comments POC A BE (test code = 5 See_Comment H [Auto mated message] The POC A BE) system which ge nerated this result transmit dewayne reference range : <=2. The reference range was not used to interpr et this result as dallin l/abnormal. [facility] CenterIsxfhogAYXCTOLTC7135-26-01 18:51:00 Test Item Value Reference Range Interpretation Comments POC A HCO3 (test code = POC A HCO3) 28 22-26 H [facility] CenterEsolnmlMLTBKJAIR1071-83-05 18:51:00 Test Item Value Reference Range Interpretation Comments POC A Glu (test code = POC A Glu) 132 70-99 H [facility] CenterLejnswvMBKLEWEEE1248-99-43 18:51:00 Test Item Value Reference Range Interpretation Comments POC A PCO2 (test code = POC A PCO2) 36 35-45 N [facility] CenterZitbgooXABWBEJZH5594-84-89 18:51:00 Test Item Value Reference Range Interpretation Comments POC A K (test code = POC A K) 3.3 3.5-5.1 L [facility] CenterPvtqlqbKWCSAXYDF4560-83-33 18:51:00 Test Item Value Reference Range Interpretation Comments POC A Temp (test code = POC A Temp) 37.0 [facility] CenterYzqdxusNMXDLVXAJ4548-64-62 18:51:00 Test Item Value Reference Range Interpretation Comments POC A Na (test code = POC A Na) 135 135-145 N [facility] CenterQruhoebVAKJFDMIZ9113-08-86 18:51:00 Test Item Value Reference Range Interpretation Comments POC A pH (test code = POC A pH) 7.50 7.35-7.45 H [facility] CenterAainwglSPMJGOBTD2478-90-60 18:51:00 Test Item Value Reference Range Interpretation Comments POC A PO2 (test code = POC A PO2) 164 80-100 H [facility] CenterXzklvzzJKCOOUXIT7404-40-94 18:51:00 Test Item Value Reference Range Interpretation Comments POC A LA (test code = POC A LA) 0.6 0.5-2.2 N [facility] CenterUfjtyneJWXVBFOKH0584-08-71 18:51:00 Test Item Value Reference Range Interpretation Comments POC A Ca Ion (test code = POC A Ca Ion) 1.09 1.05-1.25 N [facility] CenterDtpvjmfTPMUJFCHY9684-28-50 18:51:00 Test Item Value Reference Range Interpretation Comments POC A Source (test code = POC A Source) ART [facility] CenterDkhhshoJNRWIGWRZ8203-98-85 18:51:00 Test Item Value Reference Range Interpretation Comments POC A Hct (test code = POC A Hct) 27.0 36.0-48.0 L [facility] CenterOupwtmgEVCNPSSAR6534-23-57 18:51:00 Test Item Value Reference Range Interpretation Comments POC A O2 Sat (test code = POC A O2 Sat) 100.0 95.0-100.0 N [facility] CenterYudcptuZCKTJRHLS4038-48-78 18:51:00 Test Item Value Reference Range Interpretation Comments POC A BE (test code = 5 See_Comment H [Auto mated message] The POC A BE) system which ge nerated this result transmit dewayne reference range : <=2. The reference range was not used to interpr et this result as dallin l/abnormal. [facility] CenterQilvfpaTLQSVRXVB9872-95-79 18:51:00 Test Item Value Reference Range Interpretation Comments POC A HCO3 (test code = POC A HCO3) 28 22-26 H [facility] CenterFinkautHOXYSNHCM9755-44-68 18:51:00 Test Item Value Reference Range Interpretation Comments POC A Glu (test code = POC A Glu) 132 70-99 H [facility] CenterQyzfmkaTUHSYQFQN9840-02-14 18:51:00 Test Item Value Reference Range Interpretation Comments POC A PCO2 (test code = POC A PCO2) 36 35-45 N [facility] CenterMiuxewsZCALQHNXE8741-12-99 18:51:00 Test Item Value Reference Range Interpretation Comments POC A K (test code = POC A K) 3.3 3.5-5.1 L [facility] CenterWapetqaKUCBLVUQW7850-39-54 18:51:00 Test Item Value Reference Range Interpretation Comments POC A Temp (test code = POC A Temp) 37.0 [facility] CenterAcvgwtkWDHTCEEOP4338-12-52 18:51:00 Test Item Value Reference Range Interpretation Comments POC A Na (test code = POC A Na) 135 135-145 N [facility] CenterDbxdsefIJOQANOWF0293-50-77 18:51:00 Test Item Value Reference Range Interpretation Comments POC A pH (test code = POC A pH) 7.50 7.35-7.45 H [facility] CenterBmwroflNEHIKNVSN0179-27-33 18:51:00 Test Item Value Reference Range Interpretation Comments POC A PO2 (test code = POC A PO2) 164 80-100 H [facility] CenterOrtfvppUYFSQGYCE4110-97-98 18:51:00 Test Item Value Reference Range Interpretation Comments POC A LA (test code = POC A LA) 0.6 0.5-2.2 N [facility] CenterVdttpftIRVOFBEAE5294-73-00 18:51:00 Test Item Value Reference Range Interpretation Comments POC A Ca Ion (test code = POC A Ca Ion) 1.09 1.05-1.25 N [facility] CenterCtzrxmdNVSIOYSYM1772-06-14 18:51:00 Test Item Value Reference Range Interpretation Comments POC A Source (test code = POC A Source) [facility]2014-01-24 17:38:00 Test Item Value Reference Range Interpretation Comments POC A LA (test code = POC A LA) 0.6 0.5-2.2 N [facility] CenterHqwzmkqWJUHDMSSW4457-77-96 17:38:00 Test Item Value Reference Range Interpretation Comments POC A Glu (test code = POC A Glu) 137 70-99 H [facility] CenterZvkqbwgNNHJPVTNK1021-04-85 17:38:00 Test Item Value Reference Range Interpretation Comments POC A Ca Ion (test code = POC A Ca Ion) 1.08 1.05-1.25 N [facility] CenterAcjbvwdUNMKLUTYM3301-64-76 17:38:00 Test Item Value Reference Range Interpretation Comments POC A K (test code = POC A K) 3.4 3.5-5.1 L [facility] CenterHjbeojpZQHDJSHHE6011-36-13 17:38:00 Test Item Value Reference Range Interpretation Comments POC A Na (test code = POC A Na) 135 135-145 N [facility] CenterCzprkpjVISCRAHLF2729-79-77 17:38:00 Test Item Value Reference Range Interpretation Comments POC A Hct (test code = POC A Hct) 29.0 36.0-48.0 L [facility] CenterJibugmoURMLESPGC2737-22-58 17:38:00 Test Item Value Reference Range Interpretation Comments POC A O2 Sat (test code = POC A O2 Sat) 100.0 95.0-100.0 N [facility] CenterBkomxsdLJPYDGSPI5275-73-15 17:38:00 Test Item Value Reference Range Interpretation Comments POC A Source (test code = POC A Source) [facility]2014-01-24 17:38:00 Test Item Value Reference Range Interpretation Comments POC A BE (test code = 8 See_Comment H [Auto mated message] The POC A BE) system which ge nerated this result transmit dewayne reference range : <=2. The reference range was not used to interpr et this result as dallin l/abnormal. [facility] CenterUxxijqgTEMYAKJAI2623-46-40 17:38:00 Test Item Value Reference Range Interpretation Comments POC A HCO3 (test code = POC A HCO3) 31 22-26 H [facility] CenterExtiqsgUTTHQLSPE1498-30-25 17:38:00 Test Item Value Reference Range Interpretation Comments POC A PCO2 (test code = POC A PCO2) 38 35-45 N [facility] CenterZjqdyacPPDSKRUOO0177-34-74 17:38:00 Test Item Value Reference Range Interpretation Comments POC A PO2 (test code = POC A PO2) 190 80-100 H [facility] CenterIaotkidVQLOSIJGA4164-42-57 17:38:00 Test Item Value Reference Range Interpretation Comments POC A Temp (test code = POC A Temp) 37.0 [facility] CenterSzxrbkvVBQTKTIUN3669-89-17 17:38:00 Test Item Value Reference Range Interpretation Comments POC A pH (test code = POC A pH) 7.52 7.35-7.45 H [facility] CenterDfgfhdhLWSTGWUBN9032-33-12 17:38:00 Test Item Value Reference Range Interpretation Comments POC A LA (test code = POC A LA) 0.6 0.5-2.2 N [facility] CenterKhfqnzyMXHQMSBIS5797-88-94 17:38:00 Test Item Value Reference Range Interpretation Comments POC A Glu (test code = POC A Glu) 137 70-99 H [facility] CenterZgiaxsfPLBNSANXK8186-45-46 17:38:00 Test Item Value Reference Range Interpretation Comments POC A Ca Ion (test code = POC A Ca Ion) 1.08 1.05-1.25 N [facility] CenterAiksyshUAZSMJTUA2129-19-02 17:38:00 Test Item Value Reference Range Interpretation Comments POC A K (test code = POC A K) 3.4 3.5-5.1 L [facility] CenterKrfwsmqYOFECJCGS1393-32-81 17:38:00 Test Item Value Reference Range Interpretation Comments POC A Na (test code = POC A Na) 135 135-145 N [facility] CenterDzigbgqJHVRYOJZM7884-11-25 17:38:00 Test Item Value Reference Range Interpretation Comments POC A Hct (test code = POC A Hct) 29.0 36.0-48.0 L [facility] CenterCkcoeboLRADDXXKZ9533-27-08 17:38:00 Test Item Value Reference Range Interpretation Comments POC A O2 Sat (test code = POC A O2 Sat) 100.0 95.0-100.0 N [facility] CenterVpqkhubXCUMYCCQQ7337-54-88 17:38:00 Test Item Value Reference Range Interpretation Comments POC A Source (test code = POC A Source) ART [facility] CenterRpqdqzmMKDTYYDTG4401-33-06 17:38:00 Test Item Value Reference Range Interpretation Comments POC A BE (test code = 8 See_Comment H [Auto mated message] The POC A BE) system which ge nerated this result transmit dewayne reference range : <=2. The reference range was not used to interpr et this result as dallin l/abnormal. [facility] CenterZwmeygdMCKXYDCJC3313-18-84 17:38:00 Test Item Value Reference Range Interpretation Comments POC A HCO3 (test code = POC A HCO3) 31 22-26 H [facility] CenterGxmfqxcDQYSPCFHS5704-44-63 17:38:00 Test Item Value Reference Range Interpretation Comments POC A PCO2 (test code = POC A PCO2) 38 35-45 N [facility] CenterNsdcztqWIXOJILKR3031-45-81 17:38:00 Test Item Value Reference Range Interpretation Comments POC A PO2 (test code = POC A PO2) 190 80-100 H [facility] CenterQzvraavJMCBZHLEJ9160-92-23 17:38:00 Test Item Value Reference Range Interpretation Comments POC A Temp (test code = POC A Temp) 37.0 [facility] CenterZiqaftfAMJMZJCNI3434-00-02 17:38:00 Test Item Value Reference Range Interpretation Comments POC A pH (test code = POC A pH) 7.52 7.35-7.45 H [facility] CenterXpjrkwwZSYFPUZCW1050-97-59 17:38:00 Test Item Value Reference Range Interpretation Comments POC A LA (test code = POC A LA) 0.6 0.5-2.2 N [facility] CenterCpidcduPQVSXHHAD0002-01-55 17:38:00 Test Item Value Reference Range Interpretation Comments POC A Glu (test code = POC A Glu) 137 70-99 H [facility] CenterWffcdodIVLTKOKYW4328-38-73 17:38:00 Test Item Value Reference Range Interpretation Comments POC A Ca Ion (test code = POC A Ca Ion) 1.08 1.05-1.25 N [facility] CenterFliylkyLUTYUCYQQ2735-23-64 17:38:00 Test Item Value Reference Range Interpretation Comments POC A K (test code = POC A K) 3.4 3.5-5.1 L [facility] CenterKmxucslESGELNJDQ6384-54-36 17:38:00 Test Item Value Reference Range Interpretation Comments POC A Na (test code = POC A Na) 135 135-145 N [facility] CenterSkwtchbFPEPECGEG0097-72-22 17:38:00 Test Item Value Reference Range Interpretation Comments POC A Hct (test code = POC A Hct) 29.0 36.0-48.0 L [facility] CenterLukjehvLISNLYQIJ2225-34-25 17:38:00 Test Item Value Reference Range Interpretation Comments POC A O2 Sat (test code = POC A O2 Sat) 100.0 95.0-100.0 N [facility] CenterIkshvudWGYZNEHFC3383-37-06 17:38:00 Test Item Value Reference Range Interpretation Comments POC A Source (test code = POC A Source) ART [facility] CenterErutbzpQOAVMNPYT7056-05-63 17:38:00 Test Item Value Reference Range Interpretation Comments POC A BE (test code = 8 See_Comment H [Auto mated message] The POC A BE) system which ge nerated this result transmit dewayne reference range : <=2. The reference range was not used to interpr et this result as dallin l/abnormal. [facility] CenterDssooiqXMVDPSNTO6889-02-20 17:38:00 Test Item Value Reference Range Interpretation Comments POC A HCO3 (test code = POC A HCO3) 31 22-26 H [facility] CenterYciefzbOLSSIAAFB8648-31-17 17:38:00 Test Item Value Reference Range Interpretation Comments POC A PCO2 (test code = POC A PCO2) 38 35-45 N [facility] CenterJmnlcvcWSOTFPQED5629-76-97 17:38:00 Test Item Value Reference Range Interpretation Comments POC A PO2 (test code = POC A PO2) 190 80-100 H [facility] CenterLgfrijaIGFIFIDSI4661-57-76 17:38:00 Test Item Value Reference Range Interpretation Comments POC A Temp (test code = POC A Temp) 37.0 [facility] CenterBbdllntRRROGDGIM7337-62-82 17:38:00 Test Item Value Reference Range Interpretation Comments POC A pH (test code = POC A pH) 7.52 7.35-7.45 H [facility] CenterEzjroxzDDHRMNZPR9218-61-66 17:38:00 Test Item Value Reference Range Interpretation Comments POC A LA (test code = POC A LA) 0.6 0.5-2.2 N [facility] CenterDptwvdjIZYGZXLTW6650-95-52 17:38:00 Test Item Value Reference Range Interpretation Comments POC A Glu (test code = POC A Glu) 137 70-99 H [facility] CenterIotxbrqIWTRNMSHE4952-91-46 17:38:00 Test Item Value Reference Range Interpretation Comments POC A Ca Ion (test code = POC A Ca Ion) 1.08 1.05-1.25 N [facility] CenterWmznzfgFXHSXTZYN4038-39-77 17:38:00 Test Item Value Reference Range Interpretation Comments POC A K (test code = POC A K) 3.4 3.5-5.1 L [facility] CenterZfxvkehBQQKOBEHD3729-85-69 17:38:00 Test Item Value Reference Range Interpretation Comments POC A Na (test code = POC A Na) 135 135-145 N [facility] CenterIganutpJOJQGIGOE0300-17-98 17:38:00 Test Item Value Reference Range Interpretation Comments POC A Hct (test code = POC A Hct) 29.0 36.0-48.0 L [facility] CenterNgaistyQFHXRVZFT6820-62-16 17:38:00 Test Item Value Reference Range Interpretation Comments POC A O2 Sat (test code = POC A O2 Sat) 100.0 95.0-100.0 N [facility] CenterOpnwjlvDXGNLWLSD4085-97-85 17:38:00 Test Item Value Reference Range Interpretation Comments POC A Source (test code = POC A Source) ART [facility] CenterSgaknuqAEROLBJDZ2814-41-05 17:38:00 Test Item Value Reference Range Interpretation Comments POC A BE (test code = 8 See_Comment H [Auto mated message] The POC A BE) system which ge nerated this result transmit dewayne reference range : <=2. The reference range was not used to interpr et this result as dallin l/abnormal. [facility] CenterJznjmcqOJSVLJQHA5032-67-11 17:38:00 Test Item Value Reference Range Interpretation Comments POC A HCO3 (test code = POC A HCO3) 31 22-26 H [facility] CenterUuqnxbsGEMSKRNQI3940-58-23 17:38:00 Test Item Value Reference Range Interpretation Comments POC A PCO2 (test code = POC A PCO2) 38 35-45 N [facility] CenterJmceqstJVJCMIJHY6985-58-67 17:38:00 Test Item Value Reference Range Interpretation Comments POC A PO2 (test code = POC A PO2) 190 80-100 H [facility] CenterQmxhlgzUUZEECNSC0609-00-10 17:38:00 Test Item Value Reference Range Interpretation Comments POC A Temp (test code = POC A Temp) 37.0 [facility] CenterGsutddwVCHQGHYLU2756-32-17 17:38:00 Test Item Value Reference Range Interpretation Comments POC A pH (test code = POC A pH) 7.52 7.35-7.45 H [facility] CenterPlemqdcBAKVHDJIO7051-59-97 17:38:00 Test Item Value Reference Range Interpretation Comments POC A LA (test code = POC A LA) 0.6 0.5-2.2 N [facility] CenterDaskshjBHDAYUQRC1757-59-14 17:38:00 Test Item Value Reference Range Interpretation Comments POC A Glu (test code = POC A Glu) 137 70-99 H [facility] CenterOavjutnEEYYMKUZC9599-73-11 17:38:00 Test Item Value Reference Range Interpretation Comments POC A Ca Ion (test code = POC A Ca Ion) 1.08 1.05-1.25 N [facility] CenterOmkcxefUGCTRFDBI4423-91-82 17:38:00 Test Item Value Reference Range Interpretation Comments POC A K (test code = POC A K) 3.4 3.5-5.1 L [facility] CenterWbxbhprDDVRREGRI2425-21-34 17:38:00 Test Item Value Reference Range Interpretation Comments POC A Na (test code = POC A Na) 135 135-145 N [facility] CenterUcqrcdzQKYIEYUNG2139-92-69 17:38:00 Test Item Value Reference Range Interpretation Comments POC A Hct (test code = POC A Hct) 29.0 36.0-48.0 L [facility] CenterZwtyyyiDWKNFOFSH2517-44-99 17:38:00 Test Item Value Reference Range Interpretation Comments POC A O2 Sat (test code = POC A O2 Sat) 100.0 95.0-100.0 N [facility] CenterRccxxviJWIHDADDJ5970-83-54 17:38:00 Test Item Value Reference Range Interpretation Comments POC A Source (test code = POC A Source) ART [facility] CenterEozpprlJHPIMUZZP0728-38-01 17:38:00 Test Item Value Reference Range Interpretation Comments POC A BE (test code = 8 See_Comment H [Auto mated message] The POC A BE) system which ge nerated this result transmit dewayne reference range : <=2. The reference range was not used to interpr et this result as dallin l/abnormal. [facility] CenterCmszgeuGPAOTSGJO4518-74-72 17:38:00 Test Item Value Reference Range Interpretation Comments POC A HCO3 (test code = POC A HCO3) 31 22-26 H [facility] CenterJuqddadPMJEERBUZ9799-87-66 17:38:00 Test Item Value Reference Range Interpretation Comments POC A PCO2 (test code = POC A PCO2) 38 35-45 N [facility] CenterWwumdjaAPBGLYSXQ6462-33-90 17:38:00 Test Item Value Reference Range Interpretation Comments POC A PO2 (test code = POC A PO2) 190 80-100 H [facility] CenterHgklnjyDIYJWPFEQ6620-51-98 17:38:00 Test Item Value Reference Range Interpretation Comments POC A Temp (test code = POC A Temp) 37.0 [facility] CenterFytkwevXBYHGZJIB5482-11-86 17:38:00 Test Item Value Reference Range Interpretation Comments POC A pH (test code = POC A pH) 7.52 7.35-7.45 H [facility] CenterRdigucnNMAJKLYHG1555-34-89 17:38:00 Test Item Value Reference Range Interpretation Comments POC A LA (test code = POC A LA) 0.6 0.5-2.2 N [facility] CenterFrvvnqhOKRFGJJFD8662-87-19 17:38:00 Test Item Value Reference Range Interpretation Comments POC A Glu (test code = POC A Glu) 137 70-99 H [facility] CenterAcadevfWFZBVALNJ3226-00-30 17:38:00 Test Item Value Reference Range Interpretation Comments POC A Ca Ion (test code = POC A Ca Ion) 1.08 1.05-1.25 N [facility] CenterTsodwrjZUCVWXLVK2301-87-31 17:38:00 Test Item Value Reference Range Interpretation Comments POC A K (test code = POC A K) 3.4 3.5-5.1 L [facility] CenterRltgtpkFXUJCOCKO7513-09-53 17:38:00 Test Item Value Reference Range Interpretation Comments POC A Na (test code = POC A Na) 135 135-145 N [facility] CenterYyefdpkDTYXMZCAD7683-38-18 17:38:00 Test Item Value Reference Range Interpretation Comments POC A Hct (test code = POC A Hct) 29.0 36.0-48.0 L [facility] CenterXnvbisjPHQVGWNMZ7897-70-67 17:38:00 Test Item Value Reference Range Interpretation Comments POC A O2 Sat (test code = POC A O2 Sat) 100.0 95.0-100.0 N [facility] CenterFmeabjlNJYCRVWRO1191-05-55 17:38:00 Test Item Value Reference Range Interpretation Comments POC A Source (test code = POC A Source) ART [facility] CenterPbynrzgZPBTUKVVS7828-85-02 17:38:00 Test Item Value Reference Range Interpretation Comments POC A BE (test code = 8 See_Comment H [Auto mated message] The POC A BE) system which ge nerated this result transmit dewayne reference range : <=2. The reference range was not used to interpr et this result as dallin l/abnormal. [facility] CenterGcbvmtySKZQIPKJO3198-87-31 17:38:00 Test Item Value Reference Range Interpretation Comments POC A HCO3 (test code = POC A HCO3) 31 22-26 H [facility] CenterPthxopaALMJZCWBG4754-24-48 17:38:00 Test Item Value Reference Range Interpretation Comments POC A PCO2 (test code = POC A PCO2) 38 35-45 N [facility] CenterQnlzkjkVXBOYGGMA2028-59-73 17:38:00 Test Item Value Reference Range Interpretation Comments POC A PO2 (test code = POC A PO2) 190 80-100 H [facility] CenterSsccupyGPDNCEROF3342-83-10 17:38:00 Test Item Value Reference Range Interpretation Comments POC A Temp (test code = POC A Temp) 37.0 [facility] CenterOcdujucSXBKFCVTT0553-08-73 17:38:00 Test Item Value Reference Range Interpretation Comments POC A pH (test code = POC A pH) 7.52 7.35-7.45 H [facility] CenterOqpyeshKYSUZAKQD9553-79-94 17:38:00 Test Item Value Reference Range Interpretation Comments POC A LA (test code = POC A LA) 0.6 0.5-2.2 N [facility] CenterQhgovpfWJJAHKYRM6130-23-31 17:38:00 Test Item Value Reference Range Interpretation Comments POC A Glu (test code = POC A Glu) 137 70-99 [facility] CenterNbobkgtRJNGZXEOJ0989-70-52 17:38:00 Test Item Value Reference Range Interpretation Comments POC A Ca Ion (test code = POC A Ca Ion) 1.08 1.05-1.25 N [facility] CenterQyiynouFDMNSNDUG2188-08-90 17:38:00 Test Item Value Reference Range Interpretation Comments POC A K (test code = POC A K) 3.4 3.5-5.1 [facility] CenterKupnzxsZDVFLUVIE2853-33-04 17:38:00 Test Item Value Reference Range Interpretation Comments POC A Na (test code = POC A Na) 135 135-145 N [facility] CenterLrvvhwmMTVMUDKWJ9457-67-60 17:38:00 Test Item Value Reference Range Interpretation Comments POC A Hct (test code = POC A Hct) 29.0 36.0-48.0 L [facility] CenterJxjyenrRTRPUCDPY7546-41-13 17:38:00 Test Item Value Reference Range Interpretation Comments POC A O2 Sat (test code = POC A O2 Sat) 100.0 95.0-100.0 N [facility] CenterScyqqxmIAITDEHRQ0238-25-52 17:38:00 Test Item Value Reference Range Interpretation Comments POC A Source (test code = POC A Source) ART [facility] CenterLocgocqCPMXPDKJB7144-57-97 17:38:00 Test Item Value Reference Range Interpretation Comments POC A BE (test code = 8 See_Comment H [Auto mated message] The POC A BE) system which ge nerated this result transmit dewayne reference range : <=2. The reference range was not used to interpr et this result as dallin l/abnormal. [facility] CenterBtdhtybGQNSISLOC1764-00-28 17:38:00 Test Item Value Reference Range Interpretation Comments POC A HCO3 (test code = POC A HCO3) 31 22-26 H [facility] CenterVrkslqhHQVVWMMMJ0934-62-09 17:38:00 Test Item Value Reference Range Interpretation Comments POC A PCO2 (test code = POC A PCO2) 38 35-45 N [facility] CenterLlzxkebMPVPLWFOK6772-18-89 17:38:00 Test Item Value Reference Range Interpretation Comments POC A PO2 (test code = POC A PO2) 190 80-100 H [facility] CenterEmnchcjTMIPIUWIB4021-26-38 17:38:00 Test Item Value Reference Range Interpretation Comments POC A Temp (test code = POC A Temp) 37.0 [facility] CenterSjfnjtvISXVEPUSP0107-85-77 17:38:00 Test Item Value Reference Range Interpretation Comments POC A pH (test code = POC A pH) 7.52 7.35-7.45 H [facility] CenterSxwmvjzGXGVRULEU1980-74-38 17:38:00 Test Item Value Reference Range Interpretation Comments POC A LA (test code = POC A LA) 0.6 0.5-2.2 N [facility] CenterBgznyvkWIWXEWBFA6576-37-26 17:38:00 Test Item Value Reference Range Interpretation Comments POC A Glu (test code = POC A Glu) 137 70-99 H [facility] CenterUfsylsnYRSCWFUHV7973-06-37 17:38:00 Test Item Value Reference Range Interpretation Comments POC A Ca Ion (test code = POC A Ca Ion) 1.08 1.05-1.25 N [facility] CenterVcjflblMWEAGIDVN5561-44-33 17:38:00 Test Item Value Reference Range Interpretation Comments POC A K (test code = POC A K) 3.4 3.5-5.1 L [facility] CenterIgjjyzaFITMNZITQ1237-21-17 17:38:00 Test Item Value Reference Range Interpretation Comments POC A Na (test code = POC A Na) 135 135-145 N [facility] CenterXonpzxmAFJBSGFVC0213-35-85 17:38:00 Test Item Value Reference Range Interpretation Comments POC A Hct (test code = POC A Hct) 29.0 36.0-48.0 L [facility] CenterDltlshbUTKTRJKAX2247-94-27 17:38:00 Test Item Value Reference Range Interpretation Comments POC A O2 Sat (test code = POC A O2 Sat) 100.0 95.0-100.0 N [facility] CenterYcbnsrlTCUCFWWZD6040-46-31 17:38:00 Test Item Value Reference Range Interpretation Comments POC A Source (test code = POC A Source) ART [facility] CenterOpgxyawQZQNOCATJ0053-53-16 17:38:00 Test Item Value Reference Range Interpretation Comments POC A BE (test code = 8 See_Comment H [Auto mated message] The POC A BE) system which ge nerated this result transmit dewayne reference range : <=2. The reference range was not used to interpr et this result as dallin l/abnormal. [facility] CenterPnfzeqxKWVILPPQJ5674-79-90 17:38:00 Test Item Value Reference Range Interpretation Comments POC A HCO3 (test code = POC A HCO3) 31 22-26 H [facility] CenterBeathvjWZXUKZXQQ0478-40-38 17:38:00 Test Item Value Reference Range Interpretation Comments POC A PCO2 (test code = POC A PCO2) 38 35-45 N [facility] CenterMfjmvslUXPCUPYWO8772-56-90 17:38:00 Test Item Value Reference Range Interpretation Comments POC A PO2 (test code = POC A PO2) 190 80-100 H [facility] CenterByiippjDSTFMSMYB4949-12-35 17:38:00 Test Item Value Reference Range Interpretation Comments POC A Temp (test code = POC A Temp) 37.0 [facility] CenterYmmgalrYJZPFAXWR7021-65-99 17:38:00 Test Item Value Reference Range Interpretation Comments POC A pH (test code = POC A pH) 7.52 7.35-7.45 H [facility] CenterJkpwdulITSJDDDKL7211-57-65 17:38:00 Test Item Value Reference Range Interpretation Comments POC A LA (test code = POC A LA) 0.6 0.5-2.2 N [facility] CenterEizawxlBVLKWHEGP7540-77-25 17:38:00 Test Item Value Reference Range Interpretation Comments POC A Glu (test code = POC A Glu) 137 70-99 H [facility] CenterDgscfbrWOKMYOZBV7420-99-96 17:38:00 Test Item Value Reference Range Interpretation Comments POC A Ca Ion (test code = POC A Ca Ion) 1.08 1.05-1.25 N [facility] CenterYuyrgoxEHKHJXZMI3767-14-03 17:38:00 Test Item Value Reference Range Interpretation Comments POC A K (test code = POC A K) 3.4 3.5-5.1 L [facility] CenterJctkagvINVAAAGJG0394-76-29 17:38:00 Test Item Value Reference Range Interpretation Comments POC A Na (test code = POC A Na) 135 135-145 N [facility] CenterCrekodhOTMKGVIKE4404-42-48 17:38:00 Test Item Value Reference Range Interpretation Comments POC A Hct (test code = POC A Hct) 29.0 36.0-48.0 L [facility] CenterAgnnrstNXDJRXLSV0749-49-67 17:38:00 Test Item Value Reference Range Interpretation Comments POC A O2 Sat (test code = POC A O2 Sat) 100.0 95.0-100.0 N [facility] CenterBcjrithBVGURXVXG1069-62-34 17:38:00 Test Item Value Reference Range Interpretation Comments POC A Source (test code = POC A Source) ART [facility] CenterXpoaudsMJEFAWLXM4798-50-17 17:38:00 Test Item Value Reference Range Interpretation Comments POC A BE (test code = 8 See_Comment H [Auto mated message] The POC A BE) system which ge nerated this result transmit dewayne reference range : <=2. The reference range was not used to interpr et this result as dallin l/abnormal. [facility] CenterHfgiybuSVYCXQNCM7813-69-04 17:38:00 Test Item Value Reference Range Interpretation Comments POC A HCO3 (test code = POC A HCO3) 31 22-26 H [facility] CenterZcpfghfBAEPLBMIG4931-48-34 17:38:00 Test Item Value Reference Range Interpretation Comments POC A PCO2 (test code = POC A PCO2) 38 35-45 N [facility] CenterIohfkzyRICOTGETF9272-73-77 17:38:00 Test Item Value Reference Range Interpretation Comments POC A PO2 (test code = POC A PO2) 190 80-100 H [facility] CenterKawzomwZTCOKXSXL6760-90-13 17:38:00 Test Item Value Reference Range Interpretation Comments POC A Temp (test code = POC A Temp) 37.0 [facility] CenterXazlhbhLHCNSNXQF6240-27-24 17:38:00 Test Item Value Reference Range Interpretation Comments POC A pH (test code = POC A pH) 7.52 7.35-7.45 H [facility] CenterHukjehlDIYLEMXUI7020-34-06 17:38:00 Test Item Value Reference Range Interpretation Comments POC A LA (test code = POC A LA) 0.6 0.5-2.2 N [facility] CenterGpxqmqaHCHQGJQVR8088-11-72 17:38:00 Test Item Value Reference Range Interpretation Comments POC A Glu (test code = POC A Glu) 137 70-99 H [facility] CenterKuqoogxDZCIJQKOK1998-32-18 17:38:00 Test Item Value Reference Range Interpretation Comments POC A Ca Ion (test code = POC A Ca Ion) 1.08 1.05-1.25 N [facility] CenterXtsffapWPIGQKCRX8383-60-89 17:38:00 Test Item Value Reference Range Interpretation Comments POC A K (test code = POC A K) 3.4 3.5-5.1 L [facility] CenterDhcihtsIPBIJZUJN0079-50-77 17:38:00 Test Item Value Reference Range Interpretation Comments POC A Na (test code = POC A Na) 135 135-145 N [facility] CenterAaivcuvJMBZBTGOM4897-71-64 17:38:00 Test Item Value Reference Range Interpretation Comments POC A Hct (test code = POC A Hct) 29.0 36.0-48.0 L [facility] CenterXxycpuvPZNPTVQKH6552-93-47 17:38:00 Test Item Value Reference Range Interpretation Comments POC A O2 Sat (test code = POC A O2 Sat) 100.0 95.0-100.0 N [facility] CenterYgtvdaiMHOPVECYL6580-24-51 17:38:00 Test Item Value Reference Range Interpretation Comments POC A Source (test code = POC A Source) ART [facility] CenterUiivsrbWKKNTTIGB7906-09-47 17:38:00 Test Item Value Reference Range Interpretation Comments POC A BE (test code = 8 See_Comment H [Auto mated message] The POC A BE) system which ge nerated this result transmit dewayne reference range : <=2. The reference range was not used to interpr et this result as dallin l/abnormal. [facility] CenterMsqquczBVPHLXKQR0646-20-43 17:38:00 Test Item Value Reference Range Interpretation Comments POC A HCO3 (test code = POC A HCO3) 31 22-26 H [facility] CenterSoxbulqPCFCDTZXO5896-57-87 17:38:00 Test Item Value Reference Range Interpretation Comments POC A PCO2 (test code = POC A PCO2) 38 35-45 N [facility] CenterCohrqboFQPFGWUHZ8151-45-56 17:38:00 Test Item Value Reference Range Interpretation Comments POC A PO2 (test code = POC A PO2) 190 80-100 H [facility] CenterOquojsmFELJRUJFN4033-82-23 17:38:00 Test Item Value Reference Range Interpretation Comments POC A Temp (test code = POC A Temp) 37.0 [facility] CenterBywotmnJRHWSLHCU4042-35-59 17:38:00 Test Item Value Reference Range Interpretation Comments POC A pH (test code = POC A pH) 7.52 7.35-7.45 H [facility] CenterUmapsbmRVJFQBNVJ1873-76-42 17:38:00 Test Item Value Reference Range Interpretation Comments POC A LA (test code = POC A LA) 0.6 0.5-2.2 N [facility] CenterJiqkyveGGJDSYJWF5021-17-69 17:38:00 Test Item Value Reference Range Interpretation Comments POC A Glu (test code = POC A Glu) 137 70-99 H [facility] CenterTlrpddoGMPPTUQWU2044-95-08 17:38:00 Test Item Value Reference Range Interpretation Comments POC A Ca Ion (test code = POC A Ca Ion) 1.08 1.05-1.25 N [facility] CenterRmisdzvEWZIQZIFP8520-73-10 17:38:00 Test Item Value Reference Range Interpretation Comments POC A K (test code = POC A K) 3.4 3.5-5.1 L [facility] CenterEbozztvWXNIUOCAF9930-97-68 17:38:00 Test Item Value Reference Range Interpretation Comments POC A Na (test code = POC A Na) 135 135-145 N [facility] CenterFeivuiyCLSKWFWVJ2384-92-57 17:38:00 Test Item Value Reference Range Interpretation Comments POC A Hct (test code = POC A Hct) 29.0 36.0-48.0 L [facility] CenterUurbupsPLLVRLUFW1156-94-82 17:38:00 Test Item Value Reference Range Interpretation Comments POC A O2 Sat (test code = POC A O2 Sat) 100.0 95.0-100.0 N [facility] CenterCddpexzXAURQHLCI8870-53-84 17:38:00 Test Item Value Reference Range Interpretation Comments POC A Source (test code = POC A Source) ART [facility] CenterLnqiirpWRAWVKTAL6334-57-17 17:38:00 Test Item Value Reference Range Interpretation Comments POC A BE (test code = POC A BE) 8 <=2 H [facility] CenterUjkdcttCMFZKGCOJ6916-21-22 17:38:00 Test Item Value Reference Range Interpretation Comments POC A HCO3 (test code = POC A HCO3) 31 22-26 H [facility] CenterEakafnjJZDKCXENJ4084-78-90 17:38:00 Test Item Value Reference Range Interpretation Comments POC A PCO2 (test code = POC A PCO2) 38 35-45 N [facility] CenterAulompkWXCLHDLGS6187-11-90 17:38:00 Test Item Value Reference Range Interpretation Comments POC A PO2 (test code = POC A PO2) 190 80-100 H [facility] CenterOyhpjduNPNMSXSHU7204-12-54 17:38:00 Test Item Value Reference Range Interpretation Comments POC A Temp (test code = POC A Temp) 37.0 [facility] CenterKmocaqhXQGDACBHV9903-66-25 17:38:00 Test Item Value Reference Range Interpretation Comments POC A pH (test code = POC A pH) 7.52 7.35-7.45 H [facility] CenterXxsmnqcYPJVFQLFM6822-49-79 17:38:00 Test Item Value Reference Range Interpretation Comments POC A LA (test code = POC A LA) 0.6 0.5-2.2 N [facility] CenterLmikxduNLBLFKFVD0800-63-55 17:38:00 Test Item Value Reference Range Interpretation Comments POC A Glu (test code = POC A Glu) 137 70-99 H [facility] CenterFzwfdofKIJNSAZTQ7259-54-94 17:38:00 Test Item Value Reference Range Interpretation Comments POC A Ca Ion (test code = POC A Ca Ion) 1.08 1.05-1.25 N [facility] CenterBzdoetxJRFZTHSIR5938-24-79 17:38:00 Test Item Value Reference Range Interpretation Comments POC A K (test code = POC A K) 3.4 3.5-5.1 L [facility] CenterYvcywcpHKHDTAOUJ5713-32-19 17:38:00 Test Item Value Reference Range Interpretation Comments POC A Na (test code = POC A Na) 135 135-145 N [facility] CenterNvxgywgHVUBUJSTV9562-29-95 17:38:00 Test Item Value Reference Range Interpretation Comments POC A Hct (test code = POC A Hct) 29.0 36.0-48.0 L [facility] CenterEjnywjcNOFOSFIQF0335-92-14 17:38:00 Test Item Value Reference Range Interpretation Comments POC A O2 Sat (test code = POC A O2 Sat) 100.0 95.0-100.0 N [facility] CenterUbmmgyhFHNSGYEHD2348-93-34 17:38:00 Test Item Value Reference Range Interpretation Comments POC A Source (test code = POC A Source) ART [facility] CenterWrlsuglDHYRQBLFA6284-86-36 17:38:00 Test Item Value Reference Range Interpretation Comments POC A BE (test code = 8 See_Comment H [Auto mated message] The POC A BE) system which ge nerated this result transmit dewayne reference range : <=2. The reference range was not used to interpr et this result as dallin l/abnormal. [facility] CenterKkttjzhACSROTTYU6269-63-13 17:38:00 Test Item Value Reference Range Interpretation Comments POC A HCO3 (test code = POC A HCO3) 31 22-26 H [facility] CenterOzcujopYSDLDLBGT0212-46-14 17:38:00 Test Item Value Reference Range Interpretation Comments POC A PCO2 (test code = POC A PCO2) 38 35-45 N [facility] CenterLbsarpeQRNMFGWSH7357-95-28 17:38:00 Test Item Value Reference Range Interpretation Comments POC A PO2 (test code = POC A PO2) 190 80-100 H [facility] CenterSnworzvJCSCNHMLO1089-83-85 17:38:00 Test Item Value Reference Range Interpretation Comments POC A Temp (test code = POC A Temp) 37.0 [facility] CenterBvopxphTBHFCXVBC5744-50-70 17:38:00 Test Item Value Reference Range Interpretation Comments POC A pH (test code = POC A pH) 7.52 7.35-7.45 H [facility] CenterVbayfxuKWKJVVWEE9271-38-62 17:38:00 Test Item Value Reference Range Interpretation Comments POC A LA (test code = POC A LA) 0.6 0.5-2.2 N [facility] CenterAiwepkdSQJKEKYYG0543-04-17 17:38:00 Test Item Value Reference Range Interpretation Comments POC A Glu (test code = POC A Glu) 137 70-99 H [facility] CenterEnmndocMOGAIXEBF8598-38-28 17:38:00 Test Item Value Reference Range Interpretation Comments POC A Ca Ion (test code = POC A Ca Ion) 1.08 1.05-1.25 N [facility] CenterGfqitukHDHLQHADT4760-28-36 17:38:00 Test Item Value Reference Range Interpretation Comments POC A K (test code = POC A K) 3.4 3.5-5.1 L [facility] CenterDfpmzajFOMGHGXNK0721-63-63 17:38:00 Test Item Value Reference Range Interpretation Comments POC A Na (test code = POC A Na) 135 135-145 N [facility] CenterJmgutdbQCOVMTGCU5587-90-28 17:38:00 Test Item Value Reference Range Interpretation Comments POC A Hct (test code = POC A Hct) 29.0 36.0-48.0 L [facility] CenterYfootpeQDCNJICUZ4605-91-57 17:38:00 Test Item Value Reference Range Interpretation Comments POC A O2 Sat (test code = POC A O2 Sat) 100.0 95.0-100.0 N [facility] CenterGvgpltyTIDTLJHVR0116-84-85 17:38:00 Test Item Value Reference Range Interpretation Comments POC A Source (test code = POC A Source) ART [facility] CenterIqgdrbbCKAAKYRJD4413-57-54 17:38:00 Test Item Value Reference Range Interpretation Comments POC A BE (test code = 8 See_Comment H [Auto mated message] The POC A BE) system which ge nerated this result transmit dewayne reference range : <=2. The reference range was not used to interpr et this result as dallin l/abnormal. [facility] CenterFsiuckoFHMSJNQEO5583-24-67 17:38:00 Test Item Value Reference Range Interpretation Comments POC A HCO3 (test code = POC A HCO3) 31 22-26 H [facility] CenterZyzywdgDXEUHZKRG1235-79-60 17:38:00 Test Item Value Reference Range Interpretation Comments POC A PCO2 (test code = POC A PCO2) 38 35-45 N [facility] CenterNerkdvgRPEDUZENI7308-19-38 17:38:00 Test Item Value Reference Range Interpretation Comments POC A PO2 (test code = POC A PO2) 190 80-100 H [facility] CenterHopaukeYOLYRQTKU2116-47-98 17:38:00 Test Item Value Reference Range Interpretation Comments POC A Temp (test code = POC A Temp) 37.0 [facility] CenterAftovmaXPDRMSBST8782-92-56 17:38:00 Test Item Value Reference Range Interpretation Comments POC A pH (test code = POC A pH) 7.52 7.35-7.45 H [facility] CenterBzogltqZIYUPJJTJ1645-25-86 17:38:00 Test Item Value Reference Range Interpretation Comments POC A LA (test code = POC A LA) 0.6 0.5-2.2 N [facility] CenterNebivksDBVFSCYGE1903-31-58 17:38:00 Test Item Value Reference Range Interpretation Comments POC A Glu (test code = POC A Glu) 137 70-99 H [facility] CenterMtofrkzKPITODOWZ9713-64-45 17:38:00 Test Item Value Reference Range Interpretation Comments POC A Ca Ion (test code = POC A Ca Ion) 1.08 1.05-1.25 N [facility] CenterTqaxpafJKWIMZUOA4627-93-95 17:38:00 Test Item Value Reference Range Interpretation Comments POC A K (test code = POC A K) 3.4 3.5-5.1 L [facility] CenterZmzqcbhWYYVPSTTD6748-97-76 17:38:00 Test Item Value Reference Range Interpretation Comments POC A Na (test code = POC A Na) 135 135-145 N [facility] CenterEprzghpJEDJHVPFU0344-10-41 17:38:00 Test Item Value Reference Range Interpretation Comments POC A Hct (test code = POC A Hct) 29.0 36.0-48.0 L [facility] CenterLhrbejlYHNCNZFAS2125-52-86 17:38:00 Test Item Value Reference Range Interpretation Comments POC A O2 Sat (test code = POC A O2 Sat) 100.0 95.0-100.0 N [facility] CenterBzbknekAPHDWPOGX2031-44-75 17:38:00 Test Item Value Reference Range Interpretation Comments POC A Source (test code = POC A Source) ART [facility] CenterHijjkebUSEUNEALG7942-82-84 17:38:00 Test Item Value Reference Range Interpretation Comments POC A BE (test code = 8 See_Comment H [Auto mated message] The POC A BE) system which ge nerated this result transmit dewayne reference range : <=2. The reference range was not used to interpr et this result as dallin l/abnormal. [facility] CenterSmsgplaGCMHXKHQK8414-15-77 17:38:00 Test Item Value Reference Range Interpretation Comments POC A HCO3 (test code = POC A HCO3) 31 22-26 H [facility] CenterFwcnhdtAFCJHWJYN6626-20-34 17:38:00 Test Item Value Reference Range Interpretation Comments POC A PCO2 (test code = POC A PCO2) 38 35-45 N [facility] CenterMzgfgeoAVAVOLDZL7764-70-46 17:38:00 Test Item Value Reference Range Interpretation Comments POC A PO2 (test code = POC A PO2) 190 80-100 H [facility] CenterZyuzguqBVHICEOTK8661-86-85 17:38:00 Test Item Value Reference Range Interpretation Comments POC A Temp (test code = POC A Temp) 37.0 [facility] CenterDyxpdjhYAXCQWRGK8847-32-40 17:38:00 Test Item Value Reference Range Interpretation Comments POC A pH (test code = POC A pH) 7.52 7.35-7.45 H [facility] CenterZourkxmVCMTNWRQD8288-70-37 17:38:00 Test Item Value Reference Range Interpretation Comments POC A LA (test code = POC A LA) 0.6 0.5-2.2 N [facility] CenterRrqskgpZEZQZUIIQ5594-13-65 17:38:00 Test Item Value Reference Range Interpretation Comments POC A Glu (test code = POC A Glu) 137 70-99 H [facility] CenterYtyxffcOGYTOQHOD6621-55-62 17:38:00 Test Item Value Reference Range Interpretation Comments POC A Ca Ion (test code = POC A Ca Ion) 1.08 1.05-1.25 N [facility] CenterDrnppdeSYGGPGLTS3674-73-57 17:38:00 Test Item Value Reference Range Interpretation Comments POC A K (test code = POC A K) 3.4 3.5-5.1 L [facility] CenterGoprzqwHHWDPDNJV6860-50-72 17:38:00 Test Item Value Reference Range Interpretation Comments POC A Na (test code = POC A Na) 135 135-145 N [facility] CenterZpflwcdBFDKCITNH0997-52-33 17:38:00 Test Item Value Reference Range Interpretation Comments POC A Hct (test code = POC A Hct) 29.0 36.0-48.0 L [facility] CenterPdwrgeeJZNTWJCIU2247-14-42 17:38:00 Test Item Value Reference Range Interpretation Comments POC A O2 Sat (test code = POC A O2 Sat) 100.0 95.0-100.0 N [facility] CenterXxmrffkLELBGUCAK1380-52-67 17:38:00 Test Item Value Reference Range Interpretation Comments POC A Source (test code = POC A Source) ART [facility] CenterYlvkpsrDBLBYDGJK4999-45-25 17:38:00 Test Item Value Reference Range Interpretation Comments POC A BE (test code = 8 See_Comment H [Auto mated message] The POC A BE) system which ge nerated this result transmit dewayne reference range : <=2. The reference range was not used to interpr et this result as dlalin l/abnormal. [facility] CenterMoavbdoLYTWKEJKF1912-63-74 17:38:00 Test Item Value Reference Range Interpretation Comments POC A HCO3 (test code = POC A HCO3) 31 22-26 H [facility] CenterHqnmlinIXZCKSBAZ3791-20-79 17:38:00 Test Item Value Reference Range Interpretation Comments POC A PCO2 (test code = POC A PCO2) 38 35-45 N [facility] CenterYindvvvHSZKLLPSL9364-87-60 17:38:00 Test Item Value Reference Range Interpretation Comments POC A PO2 (test code = POC A PO2) 190 80-100 H [facility] CenterPwwrswxGFMXGCLJL2543-49-96 17:38:00 Test Item Value Reference Range Interpretation Comments POC A Temp (test code = POC A Temp) 37.0 [facility] CenterOutkzisDFWJOEKEQ6257-13-00 17:38:00 Test Item Value Reference Range Interpretation Comments POC A pH (test code = POC A pH) 7.52 7.35-7.45 H [facility] CenterFaxwgefXHYVVQSME9468-28-52 17:38:00 Test Item Value Reference Range Interpretation Comments POC A LA (test code = POC A LA) 0.6 0.5-2.2 N [facility] CenterAuwinmtMJERRMFDI8093-15-11 17:38:00 Test Item Value Reference Range Interpretation Comments POC A Glu (test code = POC A Glu) 137 70-99 H [facility] CenterEpvoaviZELZDYYTS4242-74-08 17:38:00 Test Item Value Reference Range Interpretation Comments POC A Ca Ion (test code = POC A Ca Ion) 1.08 1.05-1.25 N [facility] CenterHaflojgPAHUEOWIN2535-40-11 17:38:00 Test Item Value Reference Range Interpretation Comments POC A K (test code = POC A K) 3.4 3.5-5.1 L [facility] CenterDbeyegnQBMMBEFTC8393-74-78 17:38:00 Test Item Value Reference Range Interpretation Comments POC A Na (test code = POC A Na) 135 135-145 N [facility] CenterXtjwvybINEDXPAPE4249-60-95 17:38:00 Test Item Value Reference Range Interpretation Comments POC A Hct (test code = POC A Hct) 29.0 36.0-48.0 L [facility] CenterDfgbhhmGAZZXGFHF9460-50-68 17:38:00 Test Item Value Reference Range Interpretation Comments POC A O2 Sat (test code = POC A O2 Sat) 100.0 95.0-100.0 N [facility] CenterWtylnnbCHJSZMPQS0599-72-84 17:38:00 Test Item Value Reference Range Interpretation Comments POC A Source (test code = POC A Source) ART [facility] CenterSyvxqzyWUIXLACHI0271-89-30 17:38:00 Test Item Value Reference Range Interpretation Comments POC A BE (test code = 8 See_Comment H [Auto mated message] The POC A BE) system which ge nerated this result transmit dewayne reference range : <=2. The reference range was not used to interpr et this result as dallin l/abnormal. [facility] CenterSpiqjoaOSBTGPHUR4313-72-93 17:38:00 Test Item Value Reference Range Interpretation Comments POC A HCO3 (test code = POC A HCO3) 31 22-26 H [facility] CenterAjhijliECIATJMIM1615-98-94 17:38:00 Test Item Value Reference Range Interpretation Comments POC A PCO2 (test code = POC A PCO2) 38 35-45 N [facility] CenterUomwbseYITYXOVFI9340-23-11 17:38:00 Test Item Value Reference Range Interpretation Comments POC A PO2 (test code = POC A PO2) 190 80-100 H [facility] CenterKlyrmdaNVCOYTMVE6762-39-83 17:38:00 Test Item Value Reference Range Interpretation Comments POC A Temp (test code = POC A Temp) 37.0 [facility] CenterEhdlkgxHZPNPWDCP4386-37-61 17:38:00 Test Item Value Reference Range Interpretation Comments POC A pH (test code = POC A pH) 7.52 7.35-7.45 [facility] CenterCqwzbnuERKGUXTRL9509-64-50 17:38:00 Test Item Value Reference Range Interpretation Comments POC A LA (test code = POC A LA) 0.6 0.5-2.2 N [facility] CenterTgrjbjiHCGWKCPEX4053-03-68 17:38:00 Test Item Value Reference Range Interpretation Comments POC A Glu (test code = POC A Glu) 137 70-99 H [facility] CenterYgeasvzKFJNKQDNV6786-74-47 17:38:00 Test Item Value Reference Range Interpretation Comments POC A Ca Ion (test code = POC A Ca Ion) 1.08 1.05-1.25 N [facility] CenterRawupvrCGBBYTRNZ7963-32-52 17:38:00 Test Item Value Reference Range Interpretation Comments POC A K (test code = POC A K) 3.4 3.5-5.1 [facility] CenterYqhezaaKOWEHZOCB0446-34-28 17:38:00 Test Item Value Reference Range Interpretation Comments POC A Na (test code = POC A Na) 135 135-145 N [facility] CenterHwqczswAXSXGCLRQ2501-31-47 17:38:00 Test Item Value Reference Range Interpretation Comments POC A Hct (test code = POC A Hct) 29.0 36.0-48.0 L [facility] CenterOvndajkLSEEYAEYT3824-51-61 17:38:00 Test Item Value Reference Range Interpretation Comments POC A O2 Sat (test code = POC A O2 Sat) 100.0 95.0-100.0 N [facility] CenterYagglyySCJKUPGHP6412-67-71 17:38:00 Test Item Value Reference Range Interpretation Comments POC A Source (test code = POC A Source) ART [facility] CenterTnqramdKAOVVAYDM4776-64-80 17:38:00 Test Item Value Reference Range Interpretation Comments POC A BE (test code = 8 See_Comment H [Auto mated message] The POC A BE) system which ge nerated this result transmit dewayne reference range : <=2. The reference range was not used to interpr et this result as dallin l/abnormal. [facility] CenterVagrmgyQCBDZZHBT8809-07-89 17:38:00 Test Item Value Reference Range Interpretation Comments POC A HCO3 (test code = POC A HCO3) 31 22-26 H [facility] CenterSmbaqkbYBVOTPQKV0643-41-51 17:38:00 Test Item Value Reference Range Interpretation Comments POC A PCO2 (test code = POC A PCO2) 38 35-45 N [facility] CenterAqamvxmHNPRLMGJM1452-36-69 17:38:00 Test Item Value Reference Range Interpretation Comments POC A PO2 (test code = POC A PO2) 190 80-100 H [facility] CenterQuzmsxsRQRIGCUSE0767-46-38 17:38:00 Test Item Value Reference Range Interpretation Comments POC A Temp (test code = POC A Temp) 37.0 [facility] CenterSzdqgltAFHJXLOKD8069-81-89 17:38:00 Test Item Value Reference Range Interpretation Comments POC A pH (test code = POC A pH) 7.52 7.35-7.45 H [facility] CenterLgtafmbDGJOAGUKB8860-46-50 17:38:00 Test Item Value Reference Range Interpretation Comments POC A LA (test code = POC A LA) 0.6 0.5-2.2 N [facility] CenterGbjdaynTOASEWHVV1559-28-82 17:38:00 Test Item Value Reference Range Interpretation Comments POC A Glu (test code = POC A Glu) 137 70-99 H [facility] CenterAjvxjuoSAOQFLPQL9996-24-36 17:38:00 Test Item Value Reference Range Interpretation Comments POC A Ca Ion (test code = POC A Ca Ion) 1.08 1.05-1.25 N [facility] CenterMjoidqnUKTBRXVXB3495-44-02 17:38:00 Test Item Value Reference Range Interpretation Comments POC A K (test code = POC A K) 3.4 3.5-5.1 L [facility] CenterWfygmqtTAJTDMSWE3104-15-69 17:38:00 Test Item Value Reference Range Interpretation Comments POC A Na (test code = POC A Na) 135 135-145 N [facility] CenterOquyppqIFKSVWENB7973-83-43 17:38:00 Test Item Value Reference Range Interpretation Comments POC A Hct (test code = POC A Hct) 29.0 36.0-48.0 L [facility] CenterHmzpxufPCXNMSJLV7132-00-11 17:38:00 Test Item Value Reference Range Interpretation Comments POC A O2 Sat (test code = POC A O2 Sat) 100.0 95.0-100.0 N [facility] CenterXumvdayRETTYCRPW7132-25-27 17:38:00 Test Item Value Reference Range Interpretation Comments POC A Source (test code = POC A Source) ART [facility] CenterLjrolvuOSTMFQEOS4713-84-34 17:38:00 Test Item Value Reference Range Interpretation Comments POC A BE (test code = 8 See_Comment H [Auto mated message] The POC A BE) system which ge nerated this result transmit dewayne reference range : <=2. The reference range was not used to interpr et this result as dallin l/abnormal. [facility] CenterVsawuvtWHHUQKADL2456-48-18 17:38:00 Test Item Value Reference Range Interpretation Comments POC A HCO3 (test code = POC A HCO3) 31 22-26 H [facility] CenterRdhoarcWMMIGQVHZ1581-51-47 17:38:00 Test Item Value Reference Range Interpretation Comments POC A PCO2 (test code = POC A PCO2) 38 35-45 N [facility] CenterRxkmtabSDEMUDSOH6114-10-72 17:38:00 Test Item Value Reference Range Interpretation Comments POC A PO2 (test code = POC A PO2) 190 80-100 H [facility] CenterMpibrlvZOQWJRPXE2041-09-50 17:38:00 Test Item Value Reference Range Interpretation Comments POC A Temp (test code = POC A Temp) 37.0 [facility] CenterQlntqzuQTDKOONIA3358-57-69 17:38:00 Test Item Value Reference Range Interpretation Comments POC A pH (test code = POC A pH) 7.52 7.35-7.45 H [facility] CenterIkrjamaROGDQWKXO7051-99-68 17:38:00 Test Item Value Reference Range Interpretation Comments POC A LA (test code = POC A LA) 0.6 0.5-2.2 N [facility] CenterDohbcmnQWKNJFIJE1879-88-69 17:38:00 Test Item Value Reference Range Interpretation Comments POC A Glu (test code = POC A Glu) 137 70-99 H [facility] CenterLcynsztAXPRPILCH1878-88-57 17:38:00 Test Item Value Reference Range Interpretation Comments POC A Ca Ion (test code = POC A Ca Ion) 1.08 1.05-1.25 N [facility] CenterHxmxxzpUKKKLRSCB6866-46-09 17:38:00 Test Item Value Reference Range Interpretation Comments POC A K (test code = POC A K) 3.4 3.5-5.1 L [facility] CenterWgrfhauNIRQFKWTW1277-12-69 17:38:00 Test Item Value Reference Range Interpretation Comments POC A Na (test code = POC A Na) 135 135-145 N [facility] CenterTttpjwrOWHOPQTYW3009-47-30 17:38:00 Test Item Value Reference Range Interpretation Comments POC A Hct (test code = POC A Hct) 29.0 36.0-48.0 L [facility] CenterObwgezcXNUAWEZWO7558-64-79 17:38:00 Test Item Value Reference Range Interpretation Comments POC A O2 Sat (test code = POC A O2 Sat) 100.0 95.0-100.0 N [facility] CenterLyzocfeCGRQHTJRE3196-83-29 17:38:00 Test Item Value Reference Range Interpretation Comments POC A Source (test code = POC A Source) ART [facility] CenterUwzqddeXRWOMJXCC0188-02-92 17:38:00 Test Item Value Reference Range Interpretation Comments POC A BE (test code = 8 See_Comment H [Auto mated message] The POC A BE) system which ge nerated this result transmit dewayne reference range : <=2. The reference range was not used to interpr et this result as dallin l/abnormal. [facility] CenterLrcplxuCPTCSTYKP3002-10-38 17:38:00 Test Item Value Reference Range Interpretation Comments POC A HCO3 (test code = POC A HCO3) 31 22-26 H [facility] CenterRuxghaeFZDQWBQBM8929-56-75 17:38:00 Test Item Value Reference Range Interpretation Comments POC A PCO2 (test code = POC A PCO2) 38 35-45 N [facility] CenterNxgqhwpZXPIBSAPI4886-52-94 17:38:00 Test Item Value Reference Range Interpretation Comments POC A PO2 (test code = POC A PO2) 190 80-100 H [facility] CenterYdpymepOHNMVAPKH9659-74-64 17:38:00 Test Item Value Reference Range Interpretation Comments POC A Temp (test code = POC A Temp) 37.0 [facility] CenterUqjsdysZANNNEVLE3943-09-38 17:38:00 Test Item Value Reference Range Interpretation Comments POC A pH (test code = POC A pH) 7.52 7.35-7.45 H [facility] CenterChzinafZTITFHSRL6843-72-25 17:38:00 Test Item Value Reference Range Interpretation Comments POC A LA (test code = POC A LA) 0.6 0.5-2.2 N [facility] CenterNpdbguxNWKECSJLT2174-52-18 17:38:00 Test Item Value Reference Range Interpretation Comments POC A Glu (test code = POC A Glu) 137 70-99 H [facility] CenterSidvvgdOYKCNRWIE3259-14-90 17:38:00 Test Item Value Reference Range Interpretation Comments POC A Ca Ion (test code = POC A Ca Ion) 1.08 1.05-1.25 N [facility] CenterOxhltjgULZCOUBNR6368-09-04 17:38:00 Test Item Value Reference Range Interpretation Comments POC A K (test code = POC A K) 3.4 3.5-5.1 L [facility] CenterNqxrpujUDQCGQPCU2559-60-47 17:38:00 Test Item Value Reference Range Interpretation Comments POC A Na (test code = POC A Na) 135 135-145 N [facility] CenterXpkgzvcALSVBAKFT3531-15-43 17:38:00 Test Item Value Reference Range Interpretation Comments POC A Hct (test code = POC A Hct) 29.0 36.0-48.0 L [facility] CenterYntjxaxNRDLILXCH5647-96-98 17:38:00 Test Item Value Reference Range Interpretation Comments POC A O2 Sat (test code = POC A O2 Sat) 100.0 95.0-100.0 N [facility] CenterNavmehlGRHCKQLNI7459-42-38 17:38:00 Test Item Value Reference Range Interpretation Comments POC A Source (test code = POC A Source) ART [facility] CenterXwswmmjTJMMYVBAZ5337-47-60 17:38:00 Test Item Value Reference Range Interpretation Comments POC A BE (test code = 8 See_Comment H [Auto mated message] The POC A BE) system which ge nerated this result transmit dewayne reference range : <=2. The reference range was not used to interpr et this result as dallin l/abnormal. [facility] CenterNgwkmxnNSAOIOMDG4368-78-55 17:38:00 Test Item Value Reference Range Interpretation Comments POC A HCO3 (test code = POC A HCO3) 31 22-26 H [facility] CenterAmnlmwvBPEQNQLJN2974-70-18 17:38:00 Test Item Value Reference Range Interpretation Comments POC A PCO2 (test code = POC A PCO2) 38 35-45 N [facility] CenterDuielplCHYVNEXZP6253-06-34 17:38:00 Test Item Value Reference Range Interpretation Comments POC A PO2 (test code = POC A PO2) 190 80-100 H [facility] CenterGnqihljTUELSXSWO5980-85-58 17:38:00 Test Item Value Reference Range Interpretation Comments POC A Temp (test code = POC A Temp) 37.0 [facility] CenterOuajqmoJYETWXNYF9303-86-99 17:38:00 Test Item Value Reference Range Interpretation Comments POC A pH (test code = POC A pH) 7.52 7.35-7.45 H [facility] CenterVbyvgzbGYIKJBPNX8015-79-59 17:38:00 Test Item Value Reference Range Interpretation Comments POC A LA (test code = POC A LA) 0.6 0.5-2.2 N [facility] CenterLmnkncyJMVLQEHRF6278-99-73 17:38:00 Test Item Value Reference Range Interpretation Comments POC A Glu (test code = POC A Glu) 137 70-99 H [facility] CenterJfhitbdUAFYNJCXV1095-90-14 17:38:00 Test Item Value Reference Range Interpretation Comments POC A Ca Ion (test code = POC A Ca Ion) 1.08 1.05-1.25 N [facility] CenterJoujxdhVJMLEEMQZ3646-95-96 17:38:00 Test Item Value Reference Range Interpretation Comments POC A K (test code = POC A K) 3.4 3.5-5.1 L [facility] CenterHofvkumZNZYVKNGX8700-24-15 17:38:00 Test Item Value Reference Range Interpretation Comments POC A Na (test code = POC A Na) 135 135-145 N [facility] CenterTdtrjkfODHYCWIFD2417-43-05 17:38:00 Test Item Value Reference Range Interpretation Comments POC A Hct (test code = POC A Hct) 29.0 36.0-48.0 L [facility] CenterGtqtvqsXKCQMWXIW0010-14-47 17:38:00 Test Item Value Reference Range Interpretation Comments POC A O2 Sat (test code = POC A O2 Sat) 100.0 95.0-100.0 N [facility] CenterMgenmqaGEHLEJOJF6536-57-22 17:38:00 Test Item Value Reference Range Interpretation Comments POC A Source (test code = POC A Source) ART [facility] CenterYybufvnQOAZRWWVO3878-90-72 17:38:00 Test Item Value Reference Range Interpretation Comments POC A BE (test code = 8 See_Comment H [Auto mated message] The POC A BE) system which ge nerated this result transmit dewayne reference range : <=2. The reference range was not used to interpr et this result as dallin l/abnormal. [facility] CenterMchxecrLMRUIGKZZ7894-28-68 17:38:00 Test Item Value Reference Range Interpretation Comments POC A HCO3 (test code = POC A HCO3) 31 22-26 H [facility] CenterBuqwjgePSWRZIKTO1278-84-72 17:38:00 Test Item Value Reference Range Interpretation Comments POC A PCO2 (test code = POC A PCO2) 38 35-45 N [facility] CenterNccxxtmUCOHYOTDA2768-33-52 17:38:00 Test Item Value Reference Range Interpretation Comments POC A PO2 (test code = POC A PO2) 190 80-100 H [facility] CenterPmazlluEAOUHKKNH2687-31-69 17:38:00 Test Item Value Reference Range Interpretation Comments POC A Temp (test code = POC A Temp) 37.0 [facility] CenterSqzhjdjEBIGTRMLU0989-24-82 17:38:00 Test Item Value Reference Range Interpretation Comments POC A pH (test code = POC A pH) 7.52 7.35-7.45 H [facility] CenterYeufrrhCMXWKCJWJ4321-99-20 17:38:00 Test Item Value Reference Range Interpretation Comments POC A LA (test code = POC A LA) 0.6 0.5-2.2 N [facility] CenterHhqungvDQHJCZNMT1860-76-88 17:38:00 Test Item Value Reference Range Interpretation Comments POC A Glu (test code = POC A Glu) 137 70-99 H [facility] CenterSlcqwbkFOMDHZNSZ8188-57-73 17:38:00 Test Item Value Reference Range Interpretation Comments POC A Ca Ion (test code = POC A Ca Ion) 1.08 1.05-1.25 N [facility] CenterTnsbxjeTOFIUZTZI5531-46-31 17:38:00 Test Item Value Reference Range Interpretation Comments POC A K (test code = POC A K) 3.4 3.5-5.1 L [facility] CenterWdcepeaLUHUZCOUA6389-39-60 17:38:00 Test Item Value Reference Range Interpretation Comments POC A Na (test code = POC A Na) 135 135-145 N [facility] CenterDswlauvOSSONIJAY7195-16-13 17:38:00 Test Item Value Reference Range Interpretation Comments POC A Hct (test code = POC A Hct) 29.0 36.0-48.0 L [facility] CenterZqbalgxMJLCFRDPO8163-68-38 17:38:00 Test Item Value Reference Range Interpretation Comments POC A O2 Sat (test code = POC A O2 Sat) 100.0 95.0-100.0 N [facility] CenterLdjmyczVHKAKRGLX7882-19-12 17:38:00 Test Item Value Reference Range Interpretation Comments POC A Source (test code = POC A Source) ART [facility] CenterSohdihyWGOQSLMHN0484-01-08 17:38:00 Test Item Value Reference Range Interpretation Comments POC A BE (test code = POC A BE) 8 <=2 H [facility] CenterXhzjsxqEMHCBOJMY2668-36-62 17:38:00 Test Item Value Reference Range Interpretation Comments POC A HCO3 (test code = POC A HCO3) 31 22-26 H [facility] CenterUbciusdTFFBJSDJA7789-83-29 17:38:00 Test Item Value Reference Range Interpretation Comments POC A PCO2 (test code = POC A PCO2) 38 35-45 N [facility] CenterLigiohcNUTLGBEYY1833-71-29 17:38:00 Test Item Value Reference Range Interpretation Comments POC A PO2 (test code = POC A PO2) 190 80-100 H [facility] CenterBonqraeLTXNMPRJF3192-10-39 17:38:00 Test Item Value Reference Range Interpretation Comments POC A Temp (test code = POC A Temp) 37.0 [facility] CenterKzvuwruFOAAGTVGF4848-55-89 17:38:00 Test Item Value Reference Range Interpretation Comments POC A pH (test code = POC A pH) 7.52 7.35-7.45 H [facility] CenterGslcympOMXKXXRNH6220-71-83 17:38:00 Test Item Value Reference Range Interpretation Comments POC A LA (test code = POC A LA) 0.6 0.5-2.2 N [facility] CenterRhpuflfSMXILIJPC9995-65-89 17:38:00 Test Item Value Reference Range Interpretation Comments POC A Glu (test code = POC A Glu) 137 70-99 H [facility] CenterBezqbekLNSNNTDXL5840-58-81 17:38:00 Test Item Value Reference Range Interpretation Comments POC A Ca Ion (test code = POC A Ca Ion) 1.08 1.05-1.25 N [facility] CenterPsqrzefOSCPZTTRO9320-05-89 17:38:00 Test Item Value Reference Range Interpretation Comments POC A K (test code = POC A K) 3.4 3.5-5.1 L [facility] CenterWivtxwmGWTKBTMOK6248-26-30 17:38:00 Test Item Value Reference Range Interpretation Comments POC A Na (test code = POC A Na) 135 135-145 N [facility] CenterKtywabvBAHFVXBGL2835-60-85 17:38:00 Test Item Value Reference Range Interpretation Comments POC A Hct (test code = POC A Hct) 29.0 36.0-48.0 L [facility] CenterYfvnivaKVDGVZFCC3591-29-96 17:38:00 Test Item Value Reference Range Interpretation Comments POC A O2 Sat (test code = POC A O2 Sat) 100.0 95.0-100.0 N [facility] CenterWktgwseOXNWYUJRE4668-72-47 17:38:00 Test Item Value Reference Range Interpretation Comments POC A Source (test code = POC A Source) ART [facility] CenterWgroyhtYGIUNGNQR6986-35-60 17:38:00 Test Item Value Reference Range Interpretation Comments POC A BE (test code = 8 See_Comment H [Auto mated message] The POC A BE) system which ge nerated this result transmit dewayne reference range : <=2. The reference range was not used to interpr et this result as dallin l/abnormal. [facility] CenterPhetryrDFJWLSYAC5491-90-35 17:38:00 Test Item Value Reference Range Interpretation Comments POC A HCO3 (test code = POC A HCO3) 31 22-26 H [facility] CenterDkeahveIRRFVBWOB3937-43-02 17:38:00 Test Item Value Reference Range Interpretation Comments POC A PCO2 (test code = POC A PCO2) 38 35-45 N [facility] CenterUwelczsPDCLFCOXY4163-29-95 17:38:00 Test Item Value Reference Range Interpretation Comments POC A PO2 (test code = POC A PO2) 190 80-100 H [facility] CenterOoejxqfGAUFLKWHD2695-63-97 17:38:00 Test Item Value Reference Range Interpretation Comments POC A Temp (test code = POC A Temp) 37.0 [facility] CenterKtaeeucMPLMCYGJV8615-10-55 17:38:00 Test Item Value Reference Range Interpretation Comments POC A pH (test code = POC A pH) 7.52 7.35-7.45 H [facility] CenterMcylcdrIJUYANMEE8339-68-64 17:38:00 Test Item Value Reference Range Interpretation Comments POC A LA (test code = POC A LA) 0.6 0.5-2.2 N [facility] CenterPotyipdSLLGCNQIZ9510-48-85 17:38:00 Test Item Value Reference Range Interpretation Comments POC A Glu (test code = POC A Glu) 137 70-99 H [facility] CenterFisxespPJTOAJBWW2109-35-40 17:38:00 Test Item Value Reference Range Interpretation Comments POC A Ca Ion (test code = POC A Ca Ion) 1.08 1.05-1.25 N [facility] CenterJlipadbLEQRAGCLD0822-69-14 17:38:00 Test Item Value Reference Range Interpretation Comments POC A K (test code = POC A K) 3.4 3.5-5.1 L [facility] CenterMfvpizfRMYVNUCMW9323-84-32 17:38:00 Test Item Value Reference Range Interpretation Comments POC A Na (test code = POC A Na) 135 135-145 N [facility] CenterRxxxbkgUMQDPZXDD4889-82-23 17:38:00 Test Item Value Reference Range Interpretation Comments POC A Hct (test code = POC A Hct) 29.0 36.0-48.0 L [facility] CenterTipgwaeWVPQOGHDK6550-22-00 17:38:00 Test Item Value Reference Range Interpretation Comments POC A O2 Sat (test code = POC A O2 Sat) 100.0 95.0-100.0 N [facility] CenterTlfxsupJKURVLWNE9935-04-87 17:38:00 Test Item Value Reference Range Interpretation Comments POC A Source (test code = POC A Source) ART [facility] CenterDpwwwmuZSRUYPQIH6460-97-95 17:38:00 Test Item Value Reference Range Interpretation Comments POC A BE (test code = 8 See_Comment H [Auto mated message] The POC A BE) system which ge nerated this result transmit dewayne reference range : <=2. The reference range was not used to interpr et this result as dallin l/abnormal. [facility] CenterMkzsggtVWXUNQRKQ0068-21-17 17:38:00 Test Item Value Reference Range Interpretation Comments POC A HCO3 (test code = POC A HCO3) 31 22-26 H [facility] CenterIikjnnjPPUMHUEDC7365-92-94 17:38:00 Test Item Value Reference Range Interpretation Comments POC A PCO2 (test code = POC A PCO2) 38 35-45 N [facility] CenterAybfomhWSJCPJYTS1250-76-05 17:38:00 Test Item Value Reference Range Interpretation Comments POC A PO2 (test code = POC A PO2) 190 80-100 H [facility] CenterTvdpvdbNFPELSLXX3538-92-32 17:38:00 Test Item Value Reference Range Interpretation Comments POC A Temp (test code = POC A Temp) 37.0 [facility] CenterIswqdbbJMNJJWEEL2306-42-80 17:38:00 Test Item Value Reference Range Interpretation Comments POC A pH (test code = POC A pH) 7.52 7.35-7.45 H [facility] CenterOtowmadIQUJBATPF3271-61-74 17:38:00 Test Item Value Reference Range Interpretation Comments POC A LA (test code = POC A LA) 0.6 0.5-2.2 N [facility] CenterXxnxjrgBWPTVPFDR8044-13-12 17:38:00 Test Item Value Reference Range Interpretation Comments POC A Glu (test code = POC A Glu) 137 70-99 H [facility] CenterDfhtbnzEQPUKKLXE5703-73-19 17:38:00 Test Item Value Reference Range Interpretation Comments POC A Ca Ion (test code = POC A Ca Ion) 1.08 1.05-1.25 N [facility] CenterWxpaxyqKIHYLATFG3197-08-33 17:38:00 Test Item Value Reference Range Interpretation Comments POC A K (test code = POC A K) 3.4 3.5-5.1 L [facility] CenterGbtpddvPTMJGORWB4263-08-13 17:38:00 Test Item Value Reference Range Interpretation Comments POC A Na (test code = POC A Na) 135 135-145 N [facility] CenterHbbapafQRPQKYYTM9624-21-57 17:38:00 Test Item Value Reference Range Interpretation Comments POC A Hct (test code = POC A Hct) 29.0 36.0-48.0 L [facility] CenterLpelesoLLJUDJBVQ2689-54-05 17:38:00 Test Item Value Reference Range Interpretation Comments POC A O2 Sat (test code = POC A O2 Sat) 100.0 95.0-100.0 N [facility] CenterYkpiolyXEEDFRXRU9656-76-60 17:38:00 Test Item Value Reference Range Interpretation Comments POC A Source (test code = POC A Source) ART [facility] CenterJkjcoroAEFEJILYT3925-67-46 17:38:00 Test Item Value Reference Range Interpretation Comments POC A BE (test code = 8 See_Comment H [Auto mated message] The POC A BE) system which ge nerated this result transmit dewyane reference range : <=2. The reference range was not used to interpr et this result as dallin l/abnormal. [facility] CenterUbhgepfJTQKZRYVQ6680-43-17 17:38:00 Test Item Value Reference Range Interpretation Comments POC A HCO3 (test code = POC A HCO3) 31 22-26 H [facility] CenterDfjsfjvSMTGFWFVK8282-03-47 17:38:00 Test Item Value Reference Range Interpretation Comments POC A PCO2 (test code = POC A PCO2) 38 35-45 N [facility] CenterSckufhrZCLBOVSQK1768-33-71 17:38:00 Test Item Value Reference Range Interpretation Comments POC A PO2 (test code = POC A PO2) 190 80-100 H [facility] CenterQbqytdzNCGXRXJWM3705-11-69 17:38:00 Test Item Value Reference Range Interpretation Comments POC A Temp (test code = POC A Temp) 37.0 [facility] CenterJpzfatcYQIXFMDWC4653-72-03 17:38:00 Test Item Value Reference Range Interpretation Comments POC A pH (test code = POC A pH) 7.52 7.35-7.45 H [facility] CenterQcefrnsLUZWPNCNG6843-53-19 17:38:00 Test Item Value Reference Range Interpretation Comments POC A LA (test code = POC A LA) 0.6 0.5-2.2 N [facility] CenterIkijdouIBAXOWYWG0112-17-29 17:38:00 Test Item Value Reference Range Interpretation Comments POC A Glu (test code = POC A Glu) 137 70-99 H [facility] CenterXpkytciUFQNNQIXY9062-55-61 17:38:00 Test Item Value Reference Range Interpretation Comments POC A Ca Ion (test code = POC A Ca Ion) 1.08 1.05-1.25 N [facility] CenterEelploeKKOOMZKXE1155-68-25 17:38:00 Test Item Value Reference Range Interpretation Comments POC A K (test code = POC A K) 3.4 3.5-5.1 L [facility] CenterYpwzrtvKVSDTXFVG9587-27-25 17:38:00 Test Item Value Reference Range Interpretation Comments POC A Na (test code = POC A Na) 135 135-145 N [facility] CenterMfcogtqPKECFAELI8975-09-95 17:38:00 Test Item Value Reference Range Interpretation Comments POC A Hct (test code = POC A Hct) 29.0 36.0-48.0 L [facility] CenterDzubpfbZRAEBDEQF9423-47-17 17:38:00 Test Item Value Reference Range Interpretation Comments POC A O2 Sat (test code = POC A O2 Sat) 100.0 95.0-100.0 N [facility] CenterPaigitaUXBFYMADV6225-36-51 17:38:00 Test Item Value Reference Range Interpretation Comments POC A Source (test code = POC A Source) ART [facility] CenterIpenvwfYXSBJEJNM6242-51-94 17:38:00 Test Item Value Reference Range Interpretation Comments POC A BE (test code = 8 See_Comment H [Auto mated message] The POC A BE) system which ge nerated this result transmit dewayne reference range : <=2. The reference range was not used to interpr et this result as dallin l/abnormal. [id number] 17:38:00 Test Item Value Reference Range Interpretation Comments POC A HCO3 (test code = POC A HCO3) 31 22-26 H [facility] CenterHoytjrvINUYSDWFY4698-88-92 17:38:00 Test Item Value Reference Range Interpretation Comments POC A PCO2 (test code = POC A PCO2) 38 35-45 N [facility] CenterZncmkmrPXLBZDFOU2902-62-93 17:38:00 Test Item Value Reference Range Interpretation Comments POC A PO2 (test code = POC A PO2) 190 80-100 H [facility] CenterTwfufpfBKHKNHCXY7708-10-42 17:38:00 Test Item Value Reference Range Interpretation Comments POC A Temp (test code = POC A Temp) 37.0 [facility] CenterJeuqbonZQWSSNSQY2607-87-49 17:38:00 Test Item Value Reference Range Interpretation Comments POC A pH (test code = POC A pH) 7.52 7.35-7.45 H [facility] CenterLebnygnADWQZVXVR5241-22-65 17:38:00 Test Item Value Reference Range Interpretation Comments POC A LA (test code = POC A LA) 0.6 0.5-2.2 N [facility] CenterCpttrcuLAKHAAQBQ7395-98-02 17:38:00 Test Item Value Reference Range Interpretation Comments POC A Glu (test code = POC A Glu) 137 70-99 H [facility] CenterPijnrtuPNFHUCYDE8595-65-89 17:38:00 Test Item Value Reference Range Interpretation Comments POC A Ca Ion (test code = POC A Ca Ion) 1.08 1.05-1.25 N [facility] CenterYvczzvmPTIZGDBSJ2395-51-46 17:38:00 Test Item Value Reference Range Interpretation Comments POC A K (test code = POC A K) 3.4 3.5-5.1 L [facility] CenterFnkietbBCJPQVLDI1108-61-28 17:38:00 Test Item Value Reference Range Interpretation Comments POC A Na (test code = POC A Na) 135 135-145 N [facility] CenterHvbqexlFAFYEPJSU1817-39-40 17:38:00 Test Item Value Reference Range Interpretation Comments POC A Hct (test code = POC A Hct) 29.0 36.0-48.0 L [facility] CenterQkusjzbJDTVNFQMT6437-34-83 17:38:00 Test Item Value Reference Range Interpretation Comments POC A O2 Sat (test code = POC A O2 Sat) 100.0 95.0-100.0 N [facility] CenterOaephshZHVSWQFAH1098-83-98 17:38:00 Test Item Value Reference Range Interpretation Comments POC A Source (test code = POC A Source) ART [facility] CenterBsovuqqREUGGHTSQ5018-15-90 17:38:00 Test Item Value Reference Range Interpretation Comments POC A BE (test code = 8 See_Comment H [Auto mated message] The POC A BE) system which ge nerated this result transmit dewayne reference range : <=2. The reference range was not used to interpr et this result as dallin l/abnormal. [facility] CenterKzptarhXEPGNETHW0162-67-77 17:38:00 Test Item Value Reference Range Interpretation Comments POC A HCO3 (test code = POC A HCO3) 31 22-26 H [facility] CenterNqfivmkCKSAPYGXM2854-48-04 17:38:00 Test Item Value Reference Range Interpretation Comments POC A PCO2 (test code = POC A PCO2) 38 35-45 N [facility] CenterXnuxcdvNRPLQHTQK9092-45-56 17:38:00 Test Item Value Reference Range Interpretation Comments POC A PO2 (test code = POC A PO2) 190 80-100 H [facility] CenterYwqnawgBYBJDBLDD3002-24-29 17:38:00 Test Item Value Reference Range Interpretation Comments POC A Temp (test code = POC A Temp) 37.0 [facility] CenterMtkvenoUKIHVHMRL9970-28-77 17:38:00 Test Item Value Reference Range Interpretation Comments POC A pH (test code = POC A pH) 7.52 7.35-7.45 [facility]qqnvfZJUJAEBYRB6498-83-71 09:35:25 Test Item Value Reference Range Interpretation Comments aPTT (test code = aPTT) 36.1 s 22.9-35.8 H [facility]DfwtlzqMOSUNPANSB3175-65-06 09:35:25 Test Item Value Reference Range Interpretation Comments aPTT (test code = aPTT) 36.1 s 22.9-35.8 H [facility] NortheastGoigfepUDVBXBEXFL5445-14-66 09:35:25 Test Item Value Reference Range Interpretation Comments aPTT (test code = aPTT) 36.1 s 22.9-35.8 H [facility] NortheastKihqyopORBLQJCHGD0708-40-00 09:35:25 Test Item Value Reference Range Interpretation Comments aPTT (test code = aPTT) 36.1 s 22.9-35.8 H [facility] NortheastBlxxpyqZRQXWJAOQA7697-37-10 09:35:25 Test Item Value Reference Range Interpretation Comments aPTT (test code = aPTT) 36.1 s 22.9-35.8 [facility] NortheastShduchoBOAZRVSKMK1141-19-86 09:35:25 Test Item Value Reference Range Interpretation Comments aPTT (test code = aPTT) 36.1 s 22.9-35.8 H [facility] NortheastEzuhgduRHRMJYQDCM3851-72-22 09:35:25 Test Item Value Reference Range Interpretation Comments aPTT (test code = aPTT) 36.1 s 22.9-35.8 H [facility] NortheastCzlcmidTELTZAHKKV8103-11-48 09:35:25 Test Item Value Reference Range Interpretation Comments aPTT (test code = aPTT) 36.1 s 22.9-35.8 H [facility] NortheastKyyuxtlDMMYFVNOKN8642-21-47 09:35:25 Test Item Value Reference Range Interpretation Comments aPTT (test code = aPTT) 36.1 s 22.9-35.8 H [facility] NortheastMzygpmrOKECSNPOSQ6114-03-79 09:35:25 Test Item Value Reference Range Interpretation Comments aPTT (test code = aPTT) 36.1 s 22.9-35.8 H [facility] NortheastMorwxrdJDSSCEWFAV8087-27-16 09:35:25 Test Item Value Reference Range Interpretation Comments aPTT (test code = aPTT) 36.1 s 22.9-35.8 H [facility] NortheastUokxrosTJZGJNLIIJ8528-97-94 09:35:25 Test Item Value Reference Range Interpretation Comments aPTT (test code = aPTT) 36.1 s 22.9-35.8 H [facility] NortheastIbisurkZCSZICQUYV6115-16-05 09:35:25 Test Item Value Reference Range Interpretation Comments aPTT (test code = aPTT) 36.1 s 22.9-35.8 H [facility] NortheastRppkrarDDYUAHLAZU0961-01-23 09:35:25 Test Item Value Reference Range Interpretation Comments aPTT (test code = aPTT) 36.1 s 22.9-35.8 H [facility] NortheastAvpnwwoEOLHXAHNWF4445-43-77 09:35:25 Test Item Value Reference Range Interpretation Comments aPTT (test code = aPTT) 36.1 s 22.9-35.8 H [facility] NortheastIecbglbWHNHQJSLPA8156-55-62 09:35:25 Test Item Value Reference Range Interpretation Comments aPTT (test code = aPTT) 36.1 s 22.9-35.8 H [facility] NortheastVblostjGLNNVAAHJH6564-20-07 09:35:25 Test Item Value Reference Range Interpretation Comments aPTT (test code = aPTT) 36.1 s 22.9-35.8 H [facility] NortheastShvmqvgHHBANOUOKN8779-38-24 09:35:25 Test Item Value Reference Range Interpretation Comments aPTT (test code = aPTT) 36.1 s 22.9-35.8 H [facility] NortheastVtecbjaWPFJENSZIQ0870-95-60 09:35:25 Test Item Value Reference Range Interpretation Comments aPTT (test code = aPTT) 36.1 s 22.9-35.8 H [facility] NortheastOjnyadcRUUAUHHVTJ1383-21-62 09:35:25 Test Item Value Reference Range Interpretation Comments aPTT (test code = aPTT) 36.1 s 22.9-35.8 H [facility] NortheastHndocjjEHHDNSTOFI6584-60-11 09:35:25 Test Item Value Reference Range Interpretation Comments aPTT (test code = aPTT) 36.1 s 22.9-35.8 H [facility] NortheastLvsjudhIMLYVVKKAN0893-79-53 09:35:25 Test Item Value Reference Range Interpretation Comments aPTT (test code = aPTT) 36.1 s 22.9-35.8 [facility] NortheastXktfohiBFCFKDJBSS6822-89-38 09:35:25 Test Item Value Reference Range Interpretation Comments aPTT (test code = aPTT) 36.1 s 22.9-35.8 H [facility] NortheastCjxchoyBXXFZZSMGE9017-55-19 09:35:25 Test Item Value Reference Range Interpretation Comments aPTT (test code = aPTT) 36.1 s 22.9-35.8 H [facility] NortheastIhvmsqeEDMVIZALXH0011-14-93 09:35:25 Test Item Value Reference Range Interpretation Comments aPTT (test code = aPTT) 36.1 s 22.9-35.8 H [facility] NortheastByagtkzYPNYWMAIWR5503-07-68 09:35:25 Test Item Value Reference Range Interpretation Comments aPTT (test code = aPTT) 36.1 s 22.9-35.8 H [facility] NortheastLcfwtduSSDLPHGOVZ0619-03-63 09:35:25 Test Item Value Reference Range Interpretation Comments aPTT (test code = aPTT) 36.1 s 22.9-35.8 H [facility] UOKONYA3898-15-55 04:03:33 Test Item Value Reference Range Interpretation Comments RBC product (test code Product available N = RBC product) (10/07/2013 22:03:33) [facility] XQHYEDK2677-08-56 04:03:33 Test Item Value Reference Range Interpretation Comments RBC product (test code Product available N = RBC product) (10/07/2013 22:03:33) [facility] [id number] 04:03:33 Test Item Value Reference Range Interpretation Comments RBC product (test code Product available N = RBC product) (10/07/2013 22:03:33) [facility] MZVTAQG8723-66-94 04:03:33 Test Item Value Reference Range Interpretation Comments RBC product (test code Product available N = RBC product) (10/07/2013 22:03:33) [facility] FBPGRPC8407-23-17 04:03:33 Test Item Value Reference Range Interpretation Comments RBC product (test code Product available N = RBC product) (10/07/2013 22:03:33) [facility] UALFMCY9173-17-57 04:03:33 Test Item Value Reference Range Interpretation Comments RBC product (test code Product available N = RBC product) (10/07/2013 22:03:33) [facility] DZWIPEQ8362-40-42 04:03:33 Test Item Value Reference Range Interpretation Comments RBC product (test code Product available N = RBC product) (10/07/2013 22:03:33) [facility] AYVIBRU0467-38-25 04:03:33 Test Item Value Reference Range Interpretation Comments RBC product (test code Product available N = RBC product) (10/07/2013 22:03:33) [facility] IZQLSGH5015-76-08 04:03:33 Test Item Value Reference Range Interpretation Comments RBC product (test code Product available N = RBC product) (10/07/2013 22:03:33) [facility] IYFOPFC1369-33-84 04:03:33 Test Item Value Reference Range Interpretation Comments RBC product (test code Product available N = RBC product) (10/07/2013 22:03:33) [facility] PXKXNJP0840-89-94 04:03:33 Test Item Value Reference Range Interpretation Comments RBC product (test code Product available N = RBC product) (10/07/2013 22:03:33) [facility] CWSXVFV0719-98-67 04:03:33 Test Item Value Reference Range Interpretation Comments RBC product (test code Product available N = RBC product) (10/07/2013 22:03:33) [facility] [id number] 04:03:33 Test Item Value Reference Range Interpretation Comments RBC product (test code Product available N = RBC product) (10/07/2013 22:03:33) [facility] OHKJVMT2610-20-95 04:03:33 Test Item Value Reference Range Interpretation Comments RBC product (test code Product available N = RBC product) (10/07/2013 22:03:33) [facility] [id number] 04:03:33 Test Item Value Reference Range Interpretation Comments RBC product (test code Product available N = RBC product) (10/07/2013 22:03:33) [facility] [id number] 04:03:33 Test Item Value Reference Range Interpretation Comments RBC product (test code Product available N = RBC product) (10/07/2013 22:03:33) [facility] MAMZRFG2447-79-33 04:03:33 Test Item Value Reference Range Interpretation Comments RBC product (test code Product available N = RBC product) (10/07/2013 22:03:33) [facility] [id number] 04:03:33 Test Item Value Reference Range Interpretation Comments RBC product (test code Product available N = RBC product) (10/07/2013 22:03:33) [facility] OBSPAHD5083-05-88 04:03:33 Test Item Value Reference Range Interpretation Comments RBC product (test code Product available N = RBC product) (10/07/2013 22:03:33) [facility] [id number] 04:03:33 Test Item Value Reference Range Interpretation Comments RBC product (test code Product available N = RBC product) (10/07/2013 22:03:33) [facility] ENJQOIP2404-19-00 04:03:33 Test Item Value Reference Range Interpretation Comments RBC product (test code Product available N = RBC product) (10/07/2013 22:03:33) [facility] [id number] 04:03:33 Test Item Value Reference Range Interpretation Comments RBC product (test code Product available N = RBC product) (10/07/2013 22:03:33) [facility] [id number] 04:03:33 Test Item Value Reference Range Interpretation Comments RBC product (test code Product available N = RBC product) (10/07/2013 22:03:33) [facility] [id number] 04:03:33 Test Item Value Reference Range Interpretation Comments RBC product (test code Product available N = RBC product) (10/07/2013 22:03:33) [facility] [id number] 04:03:33 Test Item Value Reference Range Interpretation Comments RBC product (test code Product available N = RBC product) (10/07/2013 22:03:33) [facility] [id number] 04:03:33 Test Item Value Reference Range Interpretation Comments RBC product (test code Product available N = RBC product) (10/07/2013 22:03:33) [facility] [id number] 04:03:33 Test Item Value Reference Range Interpretation Comments RBC product (test code Product available N = RBC product) (10/07/2013 22:03:33) [facility]xbZXKNSSPVWB9040-65-83 02:50:37 Test Item Value Reference Range Interpretation Comments aPTT (test code = aPTT) 38.5 s 22.9-35.8 H [facility] NortheastLdpvbmhLAAWPOOILO0953-51-18 02:50:37 Test Item Value Reference Range Interpretation Comments aPTT (test code = aPTT) 38.5 s 22.9-35.8 H [facility] NortheastIlazqdaWHCPSAXMMB3557-68-73 02:50:37 Test Item Value Reference Range Interpretation Comments aPTT (test code = aPTT) 38.5 s 22.9-35.8 [facility]CNELQQCV1295-[facility]-28 02:50:37 Test Item Value Reference Range Interpretation Comments aPTT (test code = aPTT) 38.5 s 22.9-35.8 [facility]2014-01-24 02:50:37 Test Item Value Reference Range Interpretation Comments aPTT (test code = aPTT) 38.5 s 22.9-35.8 [facility]2014-01-24 02:50:37 Test Item Value Reference Range Interpretation Comments aPTT (test code = aPTT) 38.5 s 22.9-35.8 [facility]2014-01-24 02:50:37 Test Item Value Reference Range Interpretation Comments aPTT (test code = aPTT) 38.5 s 22.9-35.8 [facility]2014-01-24 02:50:37 Test Item Value Reference Range Interpretation Comments aPTT (test code = aPTT) 38.5 s 22.9-35.8 [facility]2014-01-24 02:50:37 Test Item Value Reference Range Interpretation Comments aPTT (test code = aPTT) 38.5 s 22.9-35.8 [facility]2014-01-24 02:50:37 Test Item Value Reference Range Interpretation Comments aPTT (test code = aPTT) 38.5 s 22.9-35.8 [facility]2014-01-24 02:50:37 Test Item Value Reference Range Interpretation Comments aPTT (test code = aPTT) 38.5 s 22.9-35.8 [facility]2014-01-24 02:50:37 Test Item Value Reference Range Interpretation Comments aPTT (test code = aPTT) 38.5 s 22.9-35.8 [facility]2014-01-24 02:50:37 Test Item Value Reference Range Interpretation Comments aPTT (test code = aPTT) 38.5 s 22.9-35.8 [facility]2014-01-24 02:50:37 Test Item Value Reference Range Interpretation Comments aPTT (test code = aPTT) 38.5 s 22.9-35.8 [facility]2014-01-24 02:50:37 Test Item Value Reference Range Interpretation Comments aPTT (test code = aPTT) 38.5 s 22.9-35.8 [facility]KyvbqhaVZGFPDFEML3559-17-88 02:50:37 Test Item Value Reference Range Interpretation Comments aPTT (test code = aPTT) 38.5 s 22.9-35.8 [facility] NortheastXiaedrgBQHRNGCVCY7858-49-41 02:50:37 Test Item Value Reference Range Interpretation Comments aPTT (test code = aPTT) 38.5 s 22.9-35.8 [facility]2014-01-24 02:50:37 Test Item Value Reference Range Interpretation Comments aPTT (test code = aPTT) 38.5 s 22.9-35.8 [facility]NsxxrqaLMGCTAOKII4941-04-98 02:50:37 Test Item Value Reference Range Interpretation Comments aPTT (test code = aPTT) 38.5 s 22.9-35.8 [facility]2014-01-24 02:50:37 Test Item Value Reference Range Interpretation Comments aPTT (test code = aPTT) 38.5 s 22.9-35.8 [facility]2014-01-24 02:50:37 Test Item Value Reference Range Interpretation Comments aPTT (test code = aPTT) 38.5 s 22.9-35.8 [facility]2014-01-24 02:50:37 Test Item Value Reference Range Interpretation Comments aPTT (test code = aPTT) 38.5 s 22.9-35.8 [facility]2014-01-24 02:50:37 Test Item Value Reference Range Interpretation Comments aPTT (test code = aPTT) 38.5 s 22.9-35.8 [facility]2014-01-24 02:50:37 Test Item Value Reference Range Interpretation Comments aPTT (test code = aPTT) 38.5 s 22.9-35.8 [facility]2014-01-24 02:50:37 Test Item Value Reference Range Interpretation Comments aPTT (test code = aPTT) 38.5 s 22.9-35.8 [facility]2014-01-24 02:50:37 Test Item Value Reference Range Interpretation Comments aPTT (test code = aPTT) 38.5 s 22.9-35.8 [facility] NortheastOxophofLJSOYVYZSE9109-46-68 02:50:37 Test Item Value Reference Range Interpretation Comments aPTT (test code = aPTT) 38.5 s 22.9-35.8 H [facility] [id number] 13:48:00 Test Item Value Reference Range Interpretation Comments RBC product (test code Product available N = RBC product) (10/07/2013 07:48:00) [facility] [id number] 13:48:00 Test Item Value Reference Range Interpretation Comments RBC product (test code Product available N = RBC product) (10/07/2013 07:48:00) [facility] [id number] 13:48:00 Test Item Value Reference Range Interpretation Comments RBC product (test code Product available N = RBC product) (10/07/2013 07:48:00) [facility] [id number] 13:48:00 Test Item Value Reference Range Interpretation Comments RBC product (test code Product available N = RBC product) (10/07/2013 07:48:00) [facility] [id number] 13:48:00 Test Item Value Reference Range Interpretation Comments RBC product (test code Product available N = RBC product) (10/07/2013 07:48:00) [facility] [id number] 13:48:00 Test Item Value Reference Range Interpretation Comments RBC product (test code Product available N = RBC product) (10/07/2013 07:48:00) [facility] [id number] 13:48:00 Test Item Value Reference Range Interpretation Comments RBC product (test code Product available N = RBC product) (10/07/2013 07:48:00) [facility] [id number] 13:48:00 Test Item Value Reference Range Interpretation Comments RBC product (test code Product available N = RBC product) (10/07/2013 07:48:00) [facility] [id number] 13:48:00 Test Item Value Reference Range Interpretation Comments RBC product (test code Product available N = RBC product) (10/07/2013 07:48:00) [facility] [id number] 13:48:00 Test Item Value Reference Range Interpretation Comments RBC product (test code Product available N = RBC product) (10/07/2013 07:48:00) [facility] [id number] 13:48:00 Test Item Value Reference Range Interpretation Comments RBC product (test code Product available N = RBC product) (10/07/2013 07:48:00) [facility] [id number] 13:48:00 Test Item Value Reference Range Interpretation Comments RBC product (test code Product available N = RBC product) (10/07/2013 07:48:00) [facility] [id number] 13:48:00 Test Item Value Reference Range Interpretation Comments RBC product (test code Product available N = RBC product) (10/07/2013 07:48:00) [facility] [id number] 13:48:00 Test Item Value Reference Range Interpretation Comments RBC product (test code Product available N = RBC product) (10/07/2013 07:48:00) [facility] [id number] 13:48:00 Test Item Value Reference Range Interpretation Comments RBC product (test code Product available N = RBC product) (10/07/2013 07:48:00) [facility] [id number] 13:48:00 Test Item Value Reference Range Interpretation Comments RBC product (test code Product available N = RBC product) (10/07/2013 07:48:00) [facility] [id number] 13:48:00 Test Item Value Reference Range Interpretation Comments RBC product (test code Product available N = RBC product) (10/07/2013 07:48:00) [facility] [id number] 13:48:00 Test Item Value Reference Range Interpretation Comments RBC product (test code Product available N = RBC product) (10/07/2013 07:48:00) [facility] [id number] 13:48:00 Test Item Value Reference Range Interpretation Comments RBC product (test code Product available N = RBC product) (10/07/2013 07:48:00) [facility] [id number] 13:48:00 Test Item Value Reference Range Interpretation Comments RBC product (test code Product available N = RBC product) (10/07/2013 07:48:00) [facility] [id number] 13:48:00 Test Item Value Reference Range Interpretation Comments RBC product (test code Product available N = RBC product) (10/07/2013 07:48:00) [facility] [id number] 13:48:00 Test Item Value Reference Range Interpretation Comments RBC product (test code Product available N = RBC product) (10/07/2013 07:48:00) [facility] [id number] 13:48:00 Test Item Value Reference Range Interpretation Comments RBC product (test code Product available N = RBC product) (10/07/2013 07:48:00) [facility] [id number] 13:48:00 Test Item Value Reference Range Interpretation Comments RBC product (test code Product available N = RBC product) (10/07/2013 07:48:00) [facility] [id number] 13:48:00 Test Item Value Reference Range Interpretation Comments RBC product (test code Product available N = RBC product) (10/07/2013 07:48:00) [facility] [id number] 13:48:00 Test Item Value Reference Range Interpretation Comments RBC product (test code Product available N = RBC product) (10/07/2013 07:48:00) [facility] [id number] 13:48:00 Test Item Value Reference Range Interpretation Comments RBC product (test code Product available N = RBC product) (10/07/2013 07:48:00) [facility]34[facility]-57 11:46:54 Test Item Value Reference Range Interpretation Comments UA Bacteria (test code = UA Few /HPF N Bacteria) [facility] HospitalRybdtwuWHFBRZMEJE4977-22-60 11:46:54 Test Item Value Reference Range Interpretation Comments UA RBC (test code = UA RBC) 5-15 [facility] HospitalRfqiuxqJPKGOGZVCQ0838-98-00 11:46:54 Test Item Value Reference Range Interpretation Comments UA WBC (test code = UA WBC) 11-20 /HPF [facility]gxyjdwUTHWGZLQZE5785-99-82 11:46:54 Test Item Value Reference Range Interpretation Comments UA Sq Epi (test code = UA Sq Epi) Rare /LPF N [facility]NxifpkgQJBGCRLKUD7703-23-26 11:46:54 Test Item Value Reference Range Interpretation Comments UA Blood (test code = Small *ABN*(10/06/2013 A UA Blood) 05:46:54) [facility] AustinYlyidnfEJHXDJKBIZ6955-41-82 11:46:54 Test Item Value Reference Range Interpretation Comments UA Urobilinogen (test code = UA 0.2 0.1-1.0 N Urobilinogen) [facility] AustinEvblmgnOVKPVZYALO0111-53-13 11:46:54 Test Item Value Reference Range Interpretation Comments UA Nitrite (test code Negative (10/06/2013 N = UA Nitrite) 05:46:54) [facility] AustinYfnimxsPOUANCJLDH7560-62-86 11:46:54 Test Item Value Reference Range Interpretation Comments UA Leuk Est (test code Small *ABN*(10/06/2013 A = UA Leuk Est) 05:46:54) [facility] AustinOpvyqfeLKOMZWFCYI9099-53-95 11:46:54 Test Item Value Reference Range Interpretation Comments UA Glucose (test code Negative (10/06/2013 N = UA Glucose) 05:46:54) [facility] AustinMcertnhYYAHGBSWMP1295-21-40 11:46:54 Test Item Value Reference Range Interpretation Comments UA Protein (test code Negative (10/06/2013 N = UA Protein) 05:46:54) [facility] AustinFcddardIABAONPOXG4598-79-66 11:46:54 Test Item Value Reference Range Interpretation Comments UA Ketones (test code Negative = UA Ketones) *NA*(10/06/2013 05:46:54) [facility] AustinCeigrqvDCSQXQGHFR8932-10-75 11:46:54 Test Item Value Reference Range Interpretation Comments UA Bili (test code = Negative *NA*(10/06/2013 UA Bili) 05:46:54) [facility] AustinYfsfabwSCOFZMBLNE5514-97-38 11:46:54 Test Item Value Reference Range Interpretation Comments UA pH (test code = UA pH) 6.0 1 5.0-8.0 N [facility]UyzexgfJVZVINDMEW8109-87-63 11:46:54 Test Item Value Reference Range Interpretation Comments UA Turbidity (test code = UA Turbidity) Hazy [facility] AustinBcpjcjdXKDKSYSTCH2230-27-58 11:46:54 Test Item Value Reference Range Interpretation Comments UA Spec Grav (test code = UA Spec 1.015 1 N Grav) [facility] AustinFepuekmKFCXGBVZOO5457-50-00 11:46:54 Test Item Value Reference Range Interpretation Comments UA Color (test code = Yellow *NA*(10/06/2013 UA Color) 05:46:54) [facility] AustinDoyikoiZGGXJFLRFX1265-78-85 11:46:54 Test Item Value Reference Range Interpretation Comments UA Bacteria (test code = UA Few /HPF N Bacteria) [facility] AustinNpsifnhWVIBDJMNYD7080-96-46 11:46:54 Test Item Value Reference Range Interpretation Comments UA RBC (test code = UA RBC) 5-15 [facility] AustinSzpmnmcSTWQDNBFNV1901-21-83 11:46:54 Test Item Value Reference Range Interpretation Comments UA WBC (test code = UA WBC) 11-20 /HPF A [facility] AustinVwpevcrXQQVQWJQMD9245-87-08 11:46:54 Test Item Value Reference Range Interpretation Comments UA Sq Epi (test code = UA Sq Epi) Rare /LPF N [facility] AustinAbmboxvHLIUSICJFB7029-72-33 11:46:54 Test Item Value Reference Range Interpretation Comments UA Blood (test code = Small *ABN*(10/06/2013 A UA Blood) 05:46:54) [facility] AustinKqogvyfIQFQPOKUNF0806-70-20 11:46:54 Test Item Value Reference Range Interpretation Comments UA Urobilinogen (test code = UA 0.2 0.1-1.0 N Urobilinogen) [facility] AustinVuosexdCMAZIIXILA3117-01-71 11:46:54 Test Item Value Reference Range Interpretation Comments UA Nitrite (test code Negative (10/06/2013 N = UA Nitrite) 05:46:54) [facility] AustinLqlgrwzEZRFUNNXUU0756-02-36 11:46:54 Test Item Value Reference Range Interpretation Comments UA Leuk Est (test code Small *ABN*(10/06/2013 A = UA Leuk Est) 05:46:54) [facility] AustinPbuwtdxZDMMFFGSNI3941-78-38 11:46:54 Test Item Value Reference Range Interpretation Comments UA Glucose (test code Negative (10/06/2013 N = UA Glucose) 05:46:54) [facility] HospitalHnjcuitOXQWBTEDMG1601-10-78 11:46:54 Test Item Value Reference Range Interpretation Comments UA Protein (test code Negative (10/06/2013 N = UA Protein) 05:46:54) [facility] AustinGzvmdugLNLEBOZPGJ6561-86-04 11:46:54 Test Item Value Reference Range Interpretation Comments UA Ketones (test code Negative = UA Ketones) *NA*(10/06/2013 05:46:54) [facility] AustinZussafdJGCHSRLEEV7391-90-78 11:46:54 Test Item Value Reference Range Interpretation Comments UA Bili (test code = Negative *NA*(10/06/2013 UA Bili) 05:46:54) [facility] AustinIozaqbeHXNNCWWSGN2391-56-19 11:46:54 Test Item Value Reference Range Interpretation Comments UA pH (test code = UA pH) 6.0 1 5.0-8.0 N [facility] AustinYlyfaisXSLWUADILG9409-19-10 11:46:54 Test Item Value Reference Range Interpretation Comments UA Turbidity (test code = UA Turbidity) Hazy [facility] AustinLkxlnxyFWCQUUKOSW9236-50-76 11:46:54 Test Item Value Reference Range Interpretation Comments UA Spec Grav (test code = UA Spec 1.015 1 N Grav) [facility] AustinDojhopzGQLDBDSNBJ6793-04-31 11:46:54 Test Item Value Reference Range Interpretation Comments UA Color (test code = Yellow *NA*(10/06/2013 UA Color) 05:46:54) [facility] AustinEoangqrGNGAGWWHWA2028-43-35 11:46:54 Test Item Value Reference Range Interpretation Comments UA Bacteria (test code = UA Few /HPF N Bacteria) [facility] AustinNgnmtcbAPOHHXWZHC6695-68-83 11:46:54 Test Item Value Reference Range Interpretation Comments UA RBC (test code = UA RBC) 5-15 [facility] AustinHkopppiSHGMOCMJEW2704-63-25 11:46:54 Test Item Value Reference Range Interpretation Comments UA WBC (test code = UA WBC) 11-20 /HPF A [facility] AustinGjvbiqoCVVSAWWAKB2856-30-64 11:46:54 Test Item Value Reference Range Interpretation Comments UA Sq Epi (test code = UA Sq Epi) Rare /LPF N [facility] HospitalYhijtfsGGXDYQKHNJ0965-38-44 11:46:54 Test Item Value Reference Range Interpretation Comments UA Blood (test code = Small *ABN*(10/06/2013 A UA Blood) 05:46:54) [facility] AustinUsnrzfdLOMKRSVHUB8218-77-81 11:46:54 Test Item Value Reference Range Interpretation Comments UA Urobilinogen (test code = UA 0.2 0.1-1.0 N Urobilinogen) [facility] AustinRazaiiwQJFXCYZVXU1010-66-38 11:46:54 Test Item Value Reference Range Interpretation Comments UA Nitrite (test code Negative (10/06/2013 N = UA Nitrite) 05:46:54) [facility] AustinQbkbhkhOQBVANJTLF0708-91-30 11:46:54 Test Item Value Reference Range Interpretation Comments UA Leuk Est (test code Small *ABN*(10/06/2013 A = UA Leuk Est) 05:46:54) [facility] AustinYrqnawkEUZECUBLYZ5228-63-94 11:46:54 Test Item Value Reference Range Interpretation Comments UA Glucose (test code Negative (10/06/2013 N = UA Glucose) 05:46:54) [facility] AustinXqovwjnSBONZZDEKF1574-44-64 11:46:54 Test Item Value Reference Range Interpretation Comments UA Protein (test code Negative (10/06/2013 N = UA Protein) 05:46:54) [facility] AustinJqyjeoePLTPACYNKH2176-58-51 11:46:54 Test Item Value Reference Range Interpretation Comments UA Ketones (test code Negative = UA Ketones) *NA*(10/06/2013 05:46:54) [facility] AustinNboqnunIRVXJALYKE1249-59-85 11:46:54 Test Item Value Reference Range Interpretation Comments UA Bili (test code = Negative *NA*(10/06/2013 UA Bili) 05:46:54) [facility] AustinFwliciiDAZLZLADNG5495-86-46 11:46:54 Test Item Value Reference Range Interpretation Comments UA pH (test code = UA pH) 6.0 1 5.0-8.0 N [facility] AustinJbuvkocMELDEDNREK1969-81-89 11:46:54 Test Item Value Reference Range Interpretation Comments UA Turbidity (test code = UA Turbidity) Hazy [facility] AustinRwnxuwhAFQLPHORIZ0345-71-17 11:46:54 Test Item Value Reference Range Interpretation Comments UA Spec Grav (test code = UA Spec 1.015 1 N Grav) [facility] AustinHqvpfqvOPURROBPIL0663-64-58 11:46:54 Test Item Value Reference Range Interpretation Comments UA Color (test code = Yellow *NA*(10/06/2013 UA Color) 05:46:54) [facility] HospitalSoouuyzFUARWKFBUG7163-95-98 11:46:54 Test Item Value Reference Range Interpretation Comments UA Bacteria (test code = UA Few /HPF N Bacteria) [facility] HospitalBuicqpePPGTYEGPBP1971-11-31 11:46:54 Test Item Value Reference Range Interpretation Comments UA RBC (test code = UA RBC) 5-15 [facility] HospitalFerarqqLWONOIFAPC5728-75-21 11:46:54 Test Item Value Reference Range Interpretation Comments UA WBC (test code = UA WBC) 11-20 /HPF A [facility] HospitalUaihyvjKCCVKEKDGQ2968-76-44 11:46:54 Test Item Value Reference Range Interpretation Comments UA Sq Epi (test code = UA Sq Epi) Rare /LPF N [facility] HospitalUnacwmfYAPXRLLMYQ0087-77-68 11:46:54 Test Item Value Reference Range Interpretation Comments UA Blood (test code = Small *ABN*(10/06/2013 A UA Blood) 05:46:54) [facility] AustinXkdqrdnDGOCJHHQUY1891-54-18 11:46:54 Test Item Value Reference Range Interpretation Comments UA Urobilinogen (test code = UA 0.2 0.1-1.0 N Urobilinogen) [facility] HospitalCyfefcyWVXHGYFXQH5864-81-74 11:46:54 Test Item Value Reference Range Interpretation Comments UA Nitrite (test code Negative (10/06/2013 N = UA Nitrite) 05:46:54) [facility] AustinFfxtingGTGRCCQAQQ1703-10-28 11:46:54 Test Item Value Reference Range Interpretation Comments UA Leuk Est (test code Small *ABN*(10/06/2013 A = UA Leuk Est) 05:46:54) [facility] HospitalYionaysQWBETLRXDO8762-61-55 11:46:54 Test Item Value Reference Range Interpretation Comments UA Glucose (test code Negative (10/06/2013 N = UA Glucose) 05:46:54) [facility] HospitalUdtyxqxBTPCNHMTIX0760-67-30 11:46:54 Test Item Value Reference Range Interpretation Comments UA Protein (test code Negative (10/06/2013 N = UA Protein) 05:46:54) [facility] HospitalZkgjjntMYBMPVRXOX0916-55-52 11:46:54 Test Item Value Reference Range Interpretation Comments UA Ketones (test code Negative = UA Ketones) *NA*(10/06/2013 05:46:54) [facility] HospitalYjxdtmvFLCZLLUASK2208-02-26 11:46:54 Test Item Value Reference Range Interpretation Comments UA Bili (test code = Negative *NA*(10/06/2013 UA Bili) 05:46:54) [facility] HospitalTdemjyyWQRIKXEKKC1091-30-12 11:46:54 Test Item Value Reference Range Interpretation Comments UA pH (test code = UA pH) 6.0 1 5.0-8.0 N [facility] HospitalExoxxnlEDTROCQBBQ4523-82-62 11:46:54 Test Item Value Reference Range Interpretation Comments UA Turbidity (test code = UA Turbidity) Hazy [facility] HospitalEauhrnyBWEYCKHJHV9456-16-02 11:46:54 Test Item Value Reference Range Interpretation Comments UA Spec Grav (test code = UA Spec 1.015 1 N Grav) [facility] AustinEoieqkeQLSYDSCBDP3491-54-59 11:46:54 Test Item Value Reference Range Interpretation Comments UA Color (test code = Yellow *NA*(10/06/2013 UA Color) 05:46:54) [facility] HospitalBsmaoaxUFZSOLBECW9065-47-50 11:46:54 Test Item Value Reference Range Interpretation Comments UA Bacteria (test code = UA Few /HPF N Bacteria) [facility] HospitalDcncdrjSUCHJEVJFT2452-01-52 11:46:54 Test Item Value Reference Range Interpretation Comments UA RBC (test code = UA RBC) 5-15 [facility] HospitalBnswvyuBRCYZPJWED0834-34-77 11:46:54 Test Item Value Reference Range Interpretation Comments UA WBC (test code = UA WBC) 11-20 /HPF A [facility] HospitalCoxbngfHNUSLBUGAJ4177-85-86 11:46:54 Test Item Value Reference Range Interpretation Comments UA Sq Epi (test code = UA Sq Epi) Rare /LPF N [facility] HospitalFmjqlatUFGFMLBZWZ2145-38-73 11:46:54 Test Item Value Reference Range Interpretation Comments UA Blood (test code = Small *ABN*(10/06/2013 A UA Blood) 05:46:54) [facility] HospitalUdveoctJHAKAYWENS2553-78-54 11:46:54 Test Item Value Reference Range Interpretation Comments UA Urobilinogen (test code = UA 0.2 0.1-1.0 N Urobilinogen) [facility] AustinVaollwaCOYCPBFFGA2897-44-65 11:46:54 Test Item Value Reference Range Interpretation Comments UA Nitrite (test code Negative (10/06/2013 N = UA Nitrite) 05:46:54) [facility] AustinGktddypEAKGRRTXME0497-68-90 11:46:54 Test Item Value Reference Range Interpretation Comments UA Leuk Est (test code Small *ABN*(10/06/2013 A = UA Leuk Est) 05:46:54) [facility] AustinDtcmztcRNPBHNMOSI9605-86-20 11:46:54 Test Item Value Reference Range Interpretation Comments UA Glucose (test code Negative (10/06/2013 N = UA Glucose) 05:46:54) [facility] AustinXhpbxzkRJEVAEQBYA7674-73-46 11:46:54 Test Item Value Reference Range Interpretation Comments UA Protein (test code Negative (10/06/2013 N = UA Protein) 05:46:54) [facility] AustinJvwxrmxYCAGWPQITW1506-34-11 11:46:54 Test Item Value Reference Range Interpretation Comments UA Ketones (test code Negative = UA Ketones) *NA*(10/06/2013 05:46:54) [facility] AustinWjdislrZUTGJGMKVU2181-19-30 11:46:54 Test Item Value Reference Range Interpretation Comments UA Bili (test code = Negative *NA*(10/06/2013 UA Bili) 05:46:54) [facility] AustinBazhyoeLPXKUUFKCR0990-47-74 11:46:54 Test Item Value Reference Range Interpretation Comments UA pH (test code = UA pH) 6.0 1 5.0-8.0 N [facility] AustinAghimvxLNHLLKDCUL2521-43-76 11:46:54 Test Item Value Reference Range Interpretation Comments UA Turbidity (test code = UA Turbidity) Hazy [facility] AustinLapavqvHSESIBSGPC5162-89-41 11:46:54 Test Item Value Reference Range Interpretation Comments UA Spec Grav (test code = UA Spec 1.015 1 N Grav) [facility] AustinCwomwddEGSJYANMCS0358-34-09 11:46:54 Test Item Value Reference Range Interpretation Comments UA Color (test code = Yellow *NA*(10/06/2013 UA Color) 05:46:54) [facility] AustinJqwztkrBIFXNCBFJZ6358-20-58 11:46:54 Test Item Value Reference Range Interpretation Comments UA Bacteria (test code = UA Few /HPF N Bacteria) [facility] AustinEnvjwufNBEVAIPMCI2805-72-19 11:46:54 Test Item Value Reference Range Interpretation Comments UA RBC (test code = UA RBC) 5-15 [facility] HospitalTiblmuwJNQXUHGHGZ5834-94-03 11:46:54 Test Item Value Reference Range Interpretation Comments UA WBC (test code = UA WBC) 11-20 /HPF A [facility] AustinJytbbjfJTIZXTLCAN7274-77-39 11:46:54 Test Item Value Reference Range Interpretation Comments UA Sq Epi (test code = UA Sq Epi) Rare /LPF N [facility] AustinPbcfhgjUEDUHUTMHL0186-50-28 11:46:54 Test Item Value Reference Range Interpretation Comments UA Blood (test code = Small *ABN*(10/06/2013 A UA Blood) 05:46:54) [facility] AustinGyikfyqUSODQXBQJI4926-21-26 11:46:54 Test Item Value Reference Range Interpretation Comments UA Urobilinogen (test code = UA 0.2 0.1-1.0 N Urobilinogen) [facility] AustinUevfcurSOWUCJVUIJ1787-24-89 11:46:54 Test Item Value Reference Range Interpretation Comments UA Nitrite (test code Negative (10/06/2013 N = UA Nitrite) 05:46:54) [facility] AustinTvgcwzsJGGKGDMCGX7885-90-16 11:46:54 Test Item Value Reference Range Interpretation Comments UA Leuk Est (test code Small *ABN*(10/06/2013 A = UA Leuk Est) 05:46:54) [facility] AustinUetbnzhZDQJRAEJVX7173-29-64 11:46:54 Test Item Value Reference Range Interpretation Comments UA Glucose (test code Negative (10/06/2013 N = UA Glucose) 05:46:54) [facility] AustinXclskoxHAHBAAKWMB7584-93-58 11:46:54 Test Item Value Reference Range Interpretation Comments UA Protein (test code Negative (10/06/2013 N = UA Protein) 05:46:54) [facility] AustinEyoxemjYKMPOGGOXU0943-13-59 11:46:54 Test Item Value Reference Range Interpretation Comments UA Ketones (test code Negative = UA Ketones) *NA*(10/06/2013 05:46:54) [facility] AustinTznkdhrUYCAGOUEWL0194-56-18 11:46:54 Test Item Value Reference Range Interpretation Comments UA Bili (test code = Negative *NA*(10/06/2013 UA Bili) 05:46:54) [facility] HospitalSmdlvwkIBUFZJUJWR1233-71-90 11:46:54 Test Item Value Reference Range Interpretation Comments UA pH (test code = UA pH) 6.0 1 5.0-8.0 N [facility] HospitalBxqlarjFDCDLOZDIA9555-25-71 11:46:54 Test Item Value Reference Range Interpretation Comments UA Turbidity (test code = UA Turbidity) Hazy [facility] AustinBwbpdbpOIMPACLDWV9719-63-74 11:46:54 Test Item Value Reference Range Interpretation Comments UA Spec Grav (test code = UA Spec 1.015 1 N Grav) [facility] AustinKhrkbnoVOTESAOFQC2140-69-53 11:46:54 Test Item Value Reference Range Interpretation Comments UA Color (test code = Yellow *NA*(10/06/2013 UA Color) 05:46:54) [facility] AustinYymsgjjWQCUFZCELU4184-97-88 11:46:54 Test Item Value Reference Range Interpretation Comments UA Bacteria (test code = UA Few /HPF N Bacteria) [facility] HospitalDjildflFOIDHDLZLW9503-75-53 11:46:54 Test Item Value Reference Range Interpretation Comments UA RBC (test code = UA RBC) 5-15 [facility] AustinBeplvdqBGYTKIRZBN9459-00-61 11:46:54 Test Item Value Reference Range Interpretation Comments UA WBC (test code = UA WBC) 11-20 /HPF A [facility] HospitalOivvmanCEDRXOKBJY7489-47-81 11:46:54 Test Item Value Reference Range Interpretation Comments UA Sq Epi (test code = UA Sq Epi) Rare /LPF N [facility] HospitalAuiqileTPCMRDFUKG8548-97-43 11:46:54 Test Item Value Reference Range Interpretation Comments UA Blood (test code = Small *ABN*(10/06/2013 A UA Blood) 05:46:54) [facility] AustinFufqddwRPTKNRZSDJ6372-46-10 11:46:54 Test Item Value Reference Range Interpretation Comments UA Urobilinogen (test code = UA 0.2 0.1-1.0 N Urobilinogen) [facility] HospitalGxfntscDKTWLMPUHH5327-69-59 11:46:54 Test Item Value Reference Range Interpretation Comments UA Nitrite (test code Negative (10/06/2013 N = UA Nitrite) 05:46:54) [facility] HospitalDfphmmiVXJSEZGXHV8022-69-16 11:46:54 Test Item Value Reference Range Interpretation Comments UA Leuk Est (test code Small *ABN*(10/06/2013 A = UA Leuk Est) 05:46:54) [facility] AustinSzdgskmKKSEXKVACD1699-74-87 11:46:54 Test Item Value Reference Range Interpretation Comments UA Glucose (test code Negative (10/06/2013 N = UA Glucose) 05:46:54) [facility] AustinPxnobveQQUSVZSZAG9291-50-59 11:46:54 Test Item Value Reference Range Interpretation Comments UA Protein (test code Negative (10/06/2013 N = UA Protein) 05:46:54) [facility] AustinGjlxzdeJNJJYOKDQV0382-64-39 11:46:54 Test Item Value Reference Range Interpretation Comments UA Ketones (test code Negative = UA Ketones) *NA*(10/06/2013 05:46:54) [facility] AustinVgwdfoiXYRNNTBKUE5934-40-11 11:46:54 Test Item Value Reference Range Interpretation Comments UA Bili (test code = Negative *NA*(10/06/2013 UA Bili) 05:46:54) [facility] AustinDgsqbttTAYCGDAKLV3321-80-46 11:46:54 Test Item Value Reference Range Interpretation Comments UA pH (test code = UA pH) 6.0 1 5.0-8.0 N [facility] AustinPejocvySKCBMJSAPO5881-23-64 11:46:54 Test Item Value Reference Range Interpretation Comments UA Turbidity (test code = UA Turbidity) Hazy [facility] AustinGtobdvjENDUKLSTTX3255-28-92 11:46:54 Test Item Value Reference Range Interpretation Comments UA Spec Grav (test code = UA Spec 1.015 1 N Grav) [facility] AustinWpxemwkANFRFAAAAZ7407-28-16 11:46:54 Test Item Value Reference Range Interpretation Comments UA Color (test code = Yellow *NA*(10/06/2013 UA Color) 05:46:54) [facility] AustinHbceeufOVRLHSVABK9460-02-13 11:46:54 Test Item Value Reference Range Interpretation Comments UA Bacteria (test code = UA Few /HPF N Bacteria) [facility] AustinGiplzvyFTJOCUQAEP3304-90-49 11:46:54 Test Item Value Reference Range Interpretation Comments UA RBC (test code = UA RBC) 5-15 [facility] AustinFnazjlcKFZJFSBHPM3739-94-01 11:46:54 Test Item Value Reference Range Interpretation Comments UA WBC (test code = UA WBC) 11-20 /HPF A [facility] HospitalEsmwsekBQGGMYJPXW5047-45-59 11:46:54 Test Item Value Reference Range Interpretation Comments UA Sq Epi (test code = UA Sq Epi) Rare /LPF N [facility] HospitalTpwzexcXWMQXQFOJM4914-71-31 11:46:54 Test Item Value Reference Range Interpretation Comments UA Blood (test code = Small *ABN*(10/06/2013 A UA Blood) 05:46:54) [facility] HospitalFtbvuqyJQFTPHPNMY6690-47-60 11:46:54 Test Item Value Reference Range Interpretation Comments UA Urobilinogen (test code = UA 0.2 0.1-1.0 N Urobilinogen) [facility] HospitalNjqxpsjQYKCYYYYME3546-83-11 11:46:54 Test Item Value Reference Range Interpretation Comments UA Nitrite (test code Negative (10/06/2013 N = UA Nitrite) 05:46:54) [facility] AustinSoptpmeEJWDNVIWQD8914-43-00 11:46:54 Test Item Value Reference Range Interpretation Comments UA Leuk Est (test code Small *ABN*(10/06/2013 A = UA Leuk Est) 05:46:54) [facility] AustinMojexbhWMINYXKDGO0580-46-46 11:46:54 Test Item Value Reference Range Interpretation Comments UA Glucose (test code Negative (10/06/2013 N = UA Glucose) 05:46:54) [facility] AustinGqpqkshRYYAJJTUAY9175-82-10 11:46:54 Test Item Value Reference Range Interpretation Comments UA Protein (test code Negative (10/06/2013 N = UA Protein) 05:46:54) [facility] AustinSnxkkkcOZTLKDOACI6288-59-91 11:46:54 Test Item Value Reference Range Interpretation Comments UA Ketones (test code Negative = UA Ketones) *NA*(10/06/2013 05:46:54) [facility] AustinGvhpbevVSMYCOWNOL7086-19-54 11:46:54 Test Item Value Reference Range Interpretation Comments UA Bili (test code = Negative *NA*(10/06/2013 UA Bili) 05:46:54) [facility] AustinSywpvrrWAQNZALTAE4253-12-76 11:46:54 Test Item Value Reference Range Interpretation Comments UA pH (test code = UA pH) 6.0 1 5.0-8.0 N [facility] HospitalLyevonaTNOBLZCGKO0015-09-33 11:46:54 Test Item Value Reference Range Interpretation Comments UA Turbidity (test code = UA Turbidity) Hazy [facility] AustinGjdukrtXKSXDRNLWB1583-05-11 11:46:54 Test Item Value Reference Range Interpretation Comments UA Spec Grav (test code = UA Spec 1.015 1 N Grav) [facility] AustinBqivrjsPQSNGPMSMI4227-10-44 11:46:54 Test Item Value Reference Range Interpretation Comments UA Color (test code = Yellow *NA*(10/06/2013 UA Color) 05:46:54) [facility] AustinBtvoavhTPJYDSIPVT1825-12-96 11:46:54 Test Item Value Reference Range Interpretation Comments UA Bacteria (test code = UA Few /HPF N Bacteria) [facility] AustinPyhefcwZGSQECASBP7382-58-90 11:46:54 Test Item Value Reference Range Interpretation Comments UA RBC (test code = UA RBC) 5-15 [facility] AustinFdqcgmyDZQJXQOWJI3833-27-95 11:46:54 Test Item Value Reference Range Interpretation Comments UA WBC (test code = UA WBC) 11-20 /HPF A [facility] AustinEfoihhrZDFTOCHUPE6047-35-47 11:46:54 Test Item Value Reference Range Interpretation Comments UA Sq Epi (test code = UA Sq Epi) Rare /LPF N [facility] AustinSmvppsjYQIINOTIKA0816-25-92 11:46:54 Test Item Value Reference Range Interpretation Comments UA Blood (test code = Small *ABN*(10/06/2013 A UA Blood) 05:46:54) [facility] AustinXpxatkmQJXLVSSBTO3196-56-73 11:46:54 Test Item Value Reference Range Interpretation Comments UA Urobilinogen (test code = UA 0.2 0.1-1.0 N Urobilinogen) [facility] AustinFwfgmeuXKWBUFZNUU4184-43-05 11:46:54 Test Item Value Reference Range Interpretation Comments UA Nitrite (test code Negative (10/06/2013 N = UA Nitrite) 05:46:54) [facility] AustinFtgkzxdKEUVAUILMH0887-79-42 11:46:54 Test Item Value Reference Range Interpretation Comments UA Leuk Est (test code Small *ABN*(10/06/2013 A = UA Leuk Est) 05:46:54) [facility] AustinFidnyssENXGJFWXBI2695-88-38 11:46:54 Test Item Value Reference Range Interpretation Comments UA Glucose (test code Negative (10/06/2013 N = UA Glucose) 05:46:54) [facility] AustinKhdizkxSCUAPSGXFW8321-25-78 11:46:54 Test Item Value Reference Range Interpretation Comments UA Protein (test code Negative (10/06/2013 N = UA Protein) 05:46:54) [facility] AustinAozupqlGSDATXWDGJ5850-03-68 11:46:54 Test Item Value Reference Range Interpretation Comments UA Ketones (test code Negative = UA Ketones) *NA*(10/06/2013 05:46:54) [facility] AustinVyairhuUFBJRYKKRW4760-33-05 11:46:54 Test Item Value Reference Range Interpretation Comments UA Bili (test code = Negative *NA*(10/06/2013 UA Bili) 05:46:54) [facility] AustinUguwugiWIVDYKESQO0317-97-02 11:46:54 Test Item Value Reference Range Interpretation Comments UA pH (test code = UA pH) 6.0 1 5.0-8.0 N [facility] AustinDbeaznxWGAVULJGJR1867-65-45 11:46:54 Test Item Value Reference Range Interpretation Comments UA Turbidity (test code = UA Turbidity) Hazy [facility] AustinHtsywcpVOKMCPDHRI3392-31-62 11:46:54 Test Item Value Reference Range Interpretation Comments UA Spec Grav (test code = UA Spec 1.015 1 N Grav) [facility] AustinKghzqhdLRDAOSSBZZ3440-59-74 11:46:54 Test Item Value Reference Range Interpretation Comments UA Color (test code = Yellow *NA*(10/06/2013 UA Color) 05:46:54) [facility] AustinWvzndwpEKDSRBTRCC3604-03-55 11:46:54 Test Item Value Reference Range Interpretation Comments UA Bacteria (test code = UA Few /HPF N Bacteria) [facility] AustinWfwfwngZRICOVKCQY9074-27-22 11:46:54 Test Item Value Reference Range Interpretation Comments UA RBC (test code = UA RBC) 5-15 [facility] AustinJpycoroXSONYXIQBA5265-04-95 11:46:54 Test Item Value Reference Range Interpretation Comments UA WBC (test code = UA WBC) 11-20 /HPF A [facility] AustinTuptycdZMPBOILINT3666-21-92 11:46:54 Test Item Value Reference Range Interpretation Comments UA Sq Epi (test code = UA Sq Epi) Rare /LPF N [facility] AustinXkkkfxpDMGUXARAMY6578-53-25 11:46:54 Test Item Value Reference Range Interpretation Comments UA Blood (test code = Small *ABN*(10/06/2013 A UA Blood) 05:46:54) [facility] AustinJoyggxlNQAJEUGEMP0718-51-61 11:46:54 Test Item Value Reference Range Interpretation Comments UA Urobilinogen (test code = UA 0.2 0.1-1.0 N Urobilinogen) [facility] AustinReogpsfGECVQVWQBT7758-66-01 11:46:54 Test Item Value Reference Range Interpretation Comments UA Nitrite (test code Negative (10/06/2013 N = UA Nitrite) 05:46:54) [facility] AustinGisxuddBBDYDLIQFA5315-66-53 11:46:54 Test Item Value Reference Range Interpretation Comments UA Leuk Est (test code Small *ABN*(10/06/2013 A = UA Leuk Est) 05:46:54) [facility] AustinIpowrrqXSHGTFHDEH5943-73-70 11:46:54 Test Item Value Reference Range Interpretation Comments UA Glucose (test code Negative (10/06/2013 N = UA Glucose) 05:46:54) [facility] AustinVhxhuclVVFQPRNLQO1074-01-81 11:46:54 Test Item Value Reference Range Interpretation Comments UA Protein (test code Negative (10/06/2013 N = UA Protein) 05:46:54) [facility] AustinRbppselPMXZNLPMAF1883-57-39 11:46:54 Test Item Value Reference Range Interpretation Comments UA Ketones (test code Negative = UA Ketones) *NA*(10/06/2013 05:46:54) [facility] AustinCpxljfvBWKFXRRBRW7857-76-18 11:46:54 Test Item Value Reference Range Interpretation Comments UA Bili (test code = Negative *NA*(10/06/2013 UA Bili) 05:46:54) [facility] AustinNeeyeaaIBCGIZIHBH3405-19-46 11:46:54 Test Item Value Reference Range Interpretation Comments UA pH (test code = UA pH) 6.0 1 5.0-8.0 N [facility] AustinIlzexzmFHVRZEMQNN6322-32-68 11:46:54 Test Item Value Reference Range Interpretation Comments UA Turbidity (test code = UA Turbidity) Hazy [facility] AustinCxzvwrlXDNKZRZDES4649-55-92 11:46:54 Test Item Value Reference Range Interpretation Comments UA Spec Grav (test code = UA Spec 1.015 1 N Grav) [facility] AustinJprqnpjOHGGJJGQLU1849-66-70 11:46:54 Test Item Value Reference Range Interpretation Comments UA Color (test code = Yellow *NA*(10/06/2013 UA Color) 05:46:54) [facility] AustinJrfgrtkCNIVHVNMMB9716-79-18 11:46:54 Test Item Value Reference Range Interpretation Comments UA Bacteria (test code = UA Few /HPF N Bacteria) [facility] AustinHcdvkbbUTDGZPDRSH6769-83-35 11:46:54 Test Item Value Reference Range Interpretation Comments UA RBC (test code = UA RBC) 5-15 [facility] HospitalDcsalkzWKBYWJYAND5662-36-61 11:46:54 Test Item Value Reference Range Interpretation Comments UA WBC (test code = UA WBC) 11-20 /HPF A [facility] HospitalFysqlsgKYOJGFNFVY5503-54-00 11:46:54 Test Item Value Reference Range Interpretation Comments UA Sq Epi (test code = UA Sq Epi) Rare /LPF N [facility] AustinSfoupvhPSPUEIPHWD0142-33-40 11:46:54 Test Item Value Reference Range Interpretation Comments UA Blood (test code = Small *ABN*(10/06/2013 A UA Blood) 05:46:54) [facility] AustinKkwiumiXGKOLOZZYR6037-85-95 11:46:54 Test Item Value Reference Range Interpretation Comments UA Urobilinogen (test code = UA 0.2 0.1-1.0 N Urobilinogen) [facility] AustinBlglndqLVFWZUSSUL6529-42-00 11:46:54 Test Item Value Reference Range Interpretation Comments UA Nitrite (test code Negative (10/06/2013 N = UA Nitrite) 05:46:54) [facility] AustinCidcehwSBXSGUOQNY3191-64-00 11:46:54 Test Item Value Reference Range Interpretation Comments UA Leuk Est (test code Small *ABN*(10/06/2013 A = UA Leuk Est) 05:46:54) [facility] AustinItlmubhNCEMKASHGF1130-95-43 11:46:54 Test Item Value Reference Range Interpretation Comments UA Glucose (test code Negative (10/06/2013 N = UA Glucose) 05:46:54) [facility] AustinXcfvapiCIDCFOQZYV0948-78-97 11:46:54 Test Item Value Reference Range Interpretation Comments UA Protein (test code Negative (10/06/2013 N = UA Protein) 05:46:54) [facility] AustinDbpbxktWCHSLYCVLQ2507-61-20 11:46:54 Test Item Value Reference Range Interpretation Comments UA Ketones (test code Negative = UA Ketones) *NA*(10/06/2013 05:46:54) [facility] AustinRlryzwlYDKOQFYPII4966-32-04 11:46:54 Test Item Value Reference Range Interpretation Comments UA Bili (test code = Negative *NA*(10/06/2013 UA Bili) 05:46:54) [facility] AustinWfctkmxUMZJWRDCCU4153-05-78 11:46:54 Test Item Value Reference Range Interpretation Comments UA pH (test code = UA pH) 6.0 1 5.0-8.0 N [facility] AustinJnocuruNVVWWDVVWC7680-19-17 11:46:54 Test Item Value Reference Range Interpretation Comments UA Turbidity (test code = UA Turbidity) Hazy [facility] AustinGdjbwynYZNOWXCLZQ5274-19-39 11:46:54 Test Item Value Reference Range Interpretation Comments UA Spec Grav (test code = UA Spec 1.015 1 N Grav) [facility] AustinUozgczjZGCSJVEHDZ0419-65-56 11:46:54 Test Item Value Reference Range Interpretation Comments UA Color (test code = Yellow *NA*(10/06/2013 UA Color) 05:46:54) [facility] AustinSazyzfcTLXYQSZPPH5662-08-94 11:46:54 Test Item Value Reference Range Interpretation Comments UA Bacteria (test code = UA Few /HPF N Bacteria) [facility] AustinPisivklACHSJCIYLJ4193-83-40 11:46:54 Test Item Value Reference Range Interpretation Comments UA RBC (test code = UA RBC) 5-15 [facility] AustinYjinnseFRQESQNIPU7415-59-48 11:46:54 Test Item Value Reference Range Interpretation Comments UA WBC (test code = UA WBC) 11-20 /HPF A [facility] HospitalRudfzpbWTDACUVBER9443-20-78 11:46:54 Test Item Value Reference Range Interpretation Comments UA Sq Epi (test code = UA Sq Epi) Rare /LPF N [facility] AustinDwjynxmFNJYCWLRID0144-25-49 11:46:54 Test Item Value Reference Range Interpretation Comments UA Blood (test code = Small *ABN*(10/06/2013 A UA Blood) 05:46:54) [facility] AustinExuintzWAWTMIKLIZ3935-60-62 11:46:54 Test Item Value Reference Range Interpretation Comments UA Urobilinogen (test code = UA 0.2 0.1-1.0 N Urobilinogen) [facility] AustinFvkzvjpJKPKJVLSXE0347-34-96 11:46:54 Test Item Value Reference Range Interpretation Comments UA Nitrite (test code Negative (10/06/2013 N = UA Nitrite) 05:46:54) [facility] AustinVpgzynvMZOOXXYEIV0176-70-17 11:46:54 Test Item Value Reference Range Interpretation Comments UA Leuk Est (test code Small *ABN*(10/06/2013 A = UA Leuk Est) 05:46:54) [facility] AustinAezyensNEPSQBOWZW3021-33-29 11:46:54 Test Item Value Reference Range Interpretation Comments UA Glucose (test code Negative (10/06/2013 N = UA Glucose) 05:46:54) [facility] AustinBlxonwwUGMFDKZBPL5355-39-09 11:46:54 Test Item Value Reference Range Interpretation Comments UA Protein (test code Negative (10/06/2013 N = UA Protein) 05:46:54) [facility] AustinJqezwqnPZESSNYMDN3643-35-56 11:46:54 Test Item Value Reference Range Interpretation Comments UA Ketones (test code Negative = UA Ketones) *NA*(10/06/2013 05:46:54) [facility] AustinXzibuplAZBWJKPQZF9261-25-80 11:46:54 Test Item Value Reference Range Interpretation Comments UA Bili (test code = Negative *NA*(10/06/2013 UA Bili) 05:46:54) [facility] AustinFastymtXPDSLIEWBQ1048-08-86 11:46:54 Test Item Value Reference Range Interpretation Comments UA pH (test code = UA pH) 6.0 1 5.0-8.0 N [facility] AustinKhozvolBCDTDIXMYA1467-34-23 11:46:54 Test Item Value Reference Range Interpretation Comments UA Turbidity (test code = UA Turbidity) Hazy [facility] AustinGinpyhxJODUGTUSMZ3155-45-51 11:46:54 Test Item Value Reference Range Interpretation Comments UA Spec Grav (test code = UA Spec 1.015 1 N Grav) [facility] AustinTahrnbjFVYFKHLAXS4665-47-69 11:46:54 Test Item Value Reference Range Interpretation Comments UA Color (test code = Yellow *NA*(10/06/2013 UA Color) 05:46:54) [facility] AustinNuxyskpBYQYWLVQQH7993-91-57 11:46:54 Test Item Value Reference Range Interpretation Comments UA Bacteria (test code = UA Few /HPF N Bacteria) [facility] HospitalOrgskgoRSSBBXYKMO1429-84-48 11:46:54 Test Item Value Reference Range Interpretation Comments UA RBC (test code = UA RBC) 5-15 [facility] HospitalHvqyxklNWPWXSOHZD5932-93-08 11:46:54 Test Item Value Reference Range Interpretation Comments UA WBC (test code = UA WBC) 11-20 /HPF A [facility] HospitalYfocdbzCOSRLLUANB1635-48-93 11:46:54 Test Item Value Reference Range Interpretation Comments UA Sq Epi (test code = UA Sq Epi) Rare /LPF N [facility] HospitalMnkzpsaVGGXHONXHJ5748-91-29 11:46:54 Test Item Value Reference Range Interpretation Comments UA Blood (test code = Small *ABN*(10/06/2013 A UA Blood) 05:46:54) [facility] AustinGxtoyodFPXRTGACMD6911-34-93 11:46:54 Test Item Value Reference Range Interpretation Comments UA Urobilinogen (test code = UA 0.2 0.1-1.0 N Urobilinogen) [facility] AustinKaypqtqTCRWTTSBQG7996-47-05 11:46:54 Test Item Value Reference Range Interpretation Comments UA Nitrite (test code Negative (10/06/2013 N = UA Nitrite) 05:46:54) [facility] AustinFmdqtxzKJMOEJTXMN2515-85-82 11:46:54 Test Item Value Reference Range Interpretation Comments UA Leuk Est (test code Small *ABN*(10/06/2013 A = UA Leuk Est) 05:46:54) [facility] AustinExhvwvaXESWZHWPCF8756-29-14 11:46:54 Test Item Value Reference Range Interpretation Comments UA Glucose (test code Negative (10/06/2013 N = UA Glucose) 05:46:54) [facility] AustinBjinwpzLFPZZTZMDR1546-62-99 11:46:54 Test Item Value Reference Range Interpretation Comments UA Protein (test code Negative (10/06/2013 N = UA Protein) 05:46:54) [facility] AustinMbeobltJLFBJEIESV4016-27-47 11:46:54 Test Item Value Reference Range Interpretation Comments UA Ketones (test code Negative = UA Ketones) *NA*(10/06/2013 05:46:54) [facility] AustinZhsdqdgOHRMLVOHUZ9384-17-88 11:46:54 Test Item Value Reference Range Interpretation Comments UA Bili (test code = Negative *NA*(10/06/2013 UA Bili) 05:46:54) [facility] AustinZcbubyeFHMPBZLJBS1684-84-60 11:46:54 Test Item Value Reference Range Interpretation Comments UA pH (test code = UA pH) 6.0 1 5.0-8.0 N [facility] AustinNbepmuqWFBAWCJKOM6935-95-91 11:46:54 Test Item Value Reference Range Interpretation Comments UA Turbidity (test code = UA Turbidity) Hazy [facility] AustinZzdgobbLQIHXNKXKN1509-09-43 11:46:54 Test Item Value Reference Range Interpretation Comments UA Spec Grav (test code = UA Spec 1.015 1 N Grav) [facility] AustinVkrxzdqJGWRBCKIBL9687-48-68 11:46:54 Test Item Value Reference Range Interpretation Comments UA Color (test code = Yellow *NA*(10/06/2013 UA Color) 05:46:54) [facility] AustinVgqwgqaCAITTUCRCD4014-25-22 11:46:54 Test Item Value Reference Range Interpretation Comments UA Bacteria (test code = UA Few /HPF N Bacteria) [facility] AustinPynxjhoVOWIJHHSEU2659-23-47 11:46:54 Test Item Value Reference Range Interpretation Comments UA RBC (test code = UA RBC) 5-15 [facility] AustinAytbrrpPWHHPDELQJ3502-23-12 11:46:54 Test Item Value Reference Range Interpretation Comments UA WBC (test code = UA WBC) 11-20 /HPF A [facility] AustinYzchmocJOWHNBXAAZ4129-16-04 11:46:54 Test Item Value Reference Range Interpretation Comments UA Sq Epi (test code = UA Sq Epi) Rare /LPF N [facility] AustinWgusdnuGMFEXOUNXR7611-51-69 11:46:54 Test Item Value Reference Range Interpretation Comments UA Blood (test code = Small *ABN*(10/06/2013 A UA Blood) 05:46:54) [facility] AustinImvrpeaBBIKFPVFLL6740-13-77 11:46:54 Test Item Value Reference Range Interpretation Comments UA Urobilinogen (test code = UA 0.2 0.1-1.0 N Urobilinogen) [facility] AustinVwtkeehGXUTDLDATF1965-66-73 11:46:54 Test Item Value Reference Range Interpretation Comments UA Nitrite (test code Negative (10/06/2013 N = UA Nitrite) 05:46:54) [facility] AustinNviyafaEPAJJVMPYN0129-58-80 11:46:54 Test Item Value Reference Range Interpretation Comments UA Leuk Est (test code Small *ABN*(10/06/2013 A = UA Leuk Est) 05:46:54) [facility] AustinLqofjwyHHNDPMYMEQ2815-03-02 11:46:54 Test Item Value Reference Range Interpretation Comments UA Glucose (test code Negative (10/06/2013 N = UA Glucose) 05:46:54) [facility] AustinNeptmmkAWFDBBUXWM3979-04-54 11:46:54 Test Item Value Reference Range Interpretation Comments UA Protein (test code Negative (10/06/2013 N = UA Protein) 05:46:54) [facility] AustinVstijueQHGVUGRHZF8248-40-17 11:46:54 Test Item Value Reference Range Interpretation Comments UA Ketones (test code Negative = UA Ketones) *NA*(10/06/2013 05:46:54) [facility] AustinPfeuppmUBAZDHOPCI6241-76-54 11:46:54 Test Item Value Reference Range Interpretation Comments UA Bili (test code = Negative *NA*(10/06/2013 UA Bili) 05:46:54) [facility] AustinJrjwfydUWQPGGBZAS7402-76-54 11:46:54 Test Item Value Reference Range Interpretation Comments UA pH (test code = UA pH) 6.0 1 5.0-8.0 N [facility] AustinFsoecxhBATRFZEWLA9789-18-03 11:46:54 Test Item Value Reference Range Interpretation Comments UA Turbidity (test code = UA Turbidity) Hazy [facility] AustinBncnmfsQBMMVVBYXO9741-56-66 11:46:54 Test Item Value Reference Range Interpretation Comments UA Spec Grav (test code = UA Spec 1.015 1 N Grav) [facility] AustinZpskpmmTLDPLBIGON5115-81-55 11:46:54 Test Item Value Reference Range Interpretation Comments UA Color (test code = Yellow *NA*(10/06/2013 UA Color) 05:46:54) [facility] AustinCkwondlYEEFJOOONZ5614-99-35 11:46:54 Test Item Value Reference Range Interpretation Comments UA Bacteria (test code = UA Few /HPF N Bacteria) [facility] AustinKbzhavzUZPPHRJZQZ7840-19-86 11:46:54 Test Item Value Reference Range Interpretation Comments UA RBC (test code = UA RBC) 5-15 [facility] AustinFtoshhsMGSONYABLM0176-98-64 11:46:54 Test Item Value Reference Range Interpretation Comments UA WBC (test code = UA WBC) 11-20 /HPF A [facility] HospitalKixungzCXTEAZOYPI8406-50-22 11:46:54 Test Item Value Reference Range Interpretation Comments UA Sq Epi (test code = UA Sq Epi) Rare /LPF N [facility] HospitalRdcuqueHYVMDQKQJB1215-37-82 11:46:54 Test Item Value Reference Range Interpretation Comments UA Blood (test code = Small *ABN*(10/06/2013 A UA Blood) 05:46:54) [facility] AustinXwatqwtBMNDYMSEKU7024-85-03 11:46:54 Test Item Value Reference Range Interpretation Comments UA Urobilinogen (test code = UA 0.2 0.1-1.0 N Urobilinogen) [facility] AustinYnfymgmROFKUMSOKB2988-44-70 11:46:54 Test Item Value Reference Range Interpretation Comments UA Nitrite (test code Negative (10/06/2013 N = UA Nitrite) 05:46:54) [facility] AustinDdyqgsuCFLMRUWWWG7692-98-44 11:46:54 Test Item Value Reference Range Interpretation Comments UA Leuk Est (test code Small *ABN*(10/06/2013 A = UA Leuk Est) 05:46:54) [facility] AustinZapzljhOFSJFMFMSP5611-89-00 11:46:54 Test Item Value Reference Range Interpretation Comments UA Glucose (test code Negative (10/06/2013 N = UA Glucose) 05:46:54) [facility] AustinDugdpptVHMPJZGPOR4556-03-99 11:46:54 Test Item Value Reference Range Interpretation Comments UA Protein (test code Negative (10/06/2013 N = UA Protein) 05:46:54) [facility] AustinFylhoypKDDABNBONQ7108-58-57 11:46:54 Test Item Value Reference Range Interpretation Comments UA Ketones (test code Negative = UA Ketones) *NA*(10/06/2013 05:46:54) [facility] AustinFypcqlbFNCDNUISCU6930-51-22 11:46:54 Test Item Value Reference Range Interpretation Comments UA Bili (test code = Negative *NA*(10/06/2013 UA Bili) 05:46:54) [facility] AustinFggalyzWZFDVSYHLO1184-26-63 11:46:54 Test Item Value Reference Range Interpretation Comments UA pH (test code = UA pH) 6.0 1 5.0-8.0 N [facility] HospitalLvnxqjhMPKMPTKHYF6421-33-47 11:46:54 Test Item Value Reference Range Interpretation Comments UA Turbidity (test code = UA Turbidity) Hazy [facility] AustinVtybueuQWMEINVMJH3563-14-51 11:46:54 Test Item Value Reference Range Interpretation Comments UA Spec Grav (test code = UA Spec 1.015 1 N Grav) [facility] AustinIomhtnwNGVQGTDESC6736-05-56 11:46:54 Test Item Value Reference Range Interpretation Comments UA Color (test code = Yellow *NA*(10/06/2013 UA Color) 05:46:54) [facility] AustinLdbbuspDTTWSTDGON5333-06-85 11:46:54 Test Item Value Reference Range Interpretation Comments UA Bacteria (test code = UA Few /HPF N Bacteria) [facility] AustinRvwdfyoKJOLSUHBOS5823-44-52 11:46:54 Test Item Value Reference Range Interpretation Comments UA RBC (test code = UA RBC) 5-15 [facility] AustinKnexzxrRQIZYVRXZF1583-16-04 11:46:54 Test Item Value Reference Range Interpretation Comments UA WBC (test code = UA WBC) 11-20 /HPF A [facility] AustinMqthomcTYONYEIPTV5805-12-65 11:46:54 Test Item Value Reference Range Interpretation Comments UA Sq Epi (test code = UA Sq Epi) Rare /LPF N [facility] AustinYmyapdjKUYXLTWXEE6751-66-91 11:46:54 Test Item Value Reference Range Interpretation Comments UA Blood (test code = Small *ABN*(10/06/2013 A UA Blood) 05:46:54) [facility] AustinTaxnnfwMDKOBQQKQQ6004-28-25 11:46:54 Test Item Value Reference Range Interpretation Comments UA Urobilinogen (test code = UA 0.2 0.1-1.0 N Urobilinogen) [facility] AustinAhtczuuODKHUIANVI1389-92-06 11:46:54 Test Item Value Reference Range Interpretation Comments UA Nitrite (test code Negative (10/06/2013 N = UA Nitrite) 05:46:54) [facility] AustinOwaewjxCRGIACSIZV4174-76-10 11:46:54 Test Item Value Reference Range Interpretation Comments UA Leuk Est (test code Small *ABN*(10/06/2013 A = UA Leuk Est) 05:46:54) [facility] AustinDaavartFTLXXWKYWC7921-69-08 11:46:54 Test Item Value Reference Range Interpretation Comments UA Glucose (test code Negative (10/06/2013 N = UA Glucose) 05:46:54) [facility] AustinMxnfpniIDXFFSHVBE0049-85-92 11:46:54 Test Item Value Reference Range Interpretation Comments UA Protein (test code Negative (10/06/2013 N = UA Protein) 05:46:54) [facility] AustinXvsriwfOSAACKOCMU9186-48-08 11:46:54 Test Item Value Reference Range Interpretation Comments UA Ketones (test code Negative = UA Ketones) *NA*(10/06/2013 05:46:54) [facility] AustinUwnebreLHMNTJTMJF3660-03-68 11:46:54 Test Item Value Reference Range Interpretation Comments UA Bili (test code = Negative *NA*(10/06/2013 UA Bili) 05:46:54) [facility] AustinIwcmjhtXBHZUZFXYE5309-22-88 11:46:54 Test Item Value Reference Range Interpretation Comments UA pH (test code = UA pH) 6.0 1 5.0-8.0 N [facility] AustinGnhkjmoPOWIZWQLBA1919-27-21 11:46:54 Test Item Value Reference Range Interpretation Comments UA Turbidity (test code = UA Turbidity) Hazy [facility] AustinHvgdrgbVTXEJLQUYO2421-23-11 11:46:54 Test Item Value Reference Range Interpretation Comments UA Spec Grav (test code = UA Spec 1.015 1 N Grav) [facility] AustinHqbqvtkMVCXBEZJTF9335-67-79 11:46:54 Test Item Value Reference Range Interpretation Comments UA Color (test code = Yellow *NA*(10/06/2013 UA Color) 05:46:54) [facility] AustinQvcntchYJAJIUFSNK9948-18-23 11:46:54 Test Item Value Reference Range Interpretation Comments UA Bacteria (test code = UA Few /HPF N Bacteria) [facility] AustinPjpxdfbDAMZXNAZFU4043-38-18 11:46:54 Test Item Value Reference Range Interpretation Comments UA RBC (test code = UA RBC) 5-15 [facility] AustinWyovddaWTLMPQWTXE1634-49-36 11:46:54 Test Item Value Reference Range Interpretation Comments UA WBC (test code = UA WBC) 11-20 /HPF A [facility] AustinSadboksRWYVXEJHMH4758-63-42 11:46:54 Test Item Value Reference Range Interpretation Comments UA Sq Epi (test code = UA Sq Epi) Rare /LPF N [facility] HospitalSfhcqpgENFZUGSZOX0567-88-50 11:46:54 Test Item Value Reference Range Interpretation Comments UA Blood (test code = Small *ABN*(10/06/2013 A UA Blood) 05:46:54) [facility] AustinNzvawcjJOLJECDPZK4067-30-83 11:46:54 Test Item Value Reference Range Interpretation Comments UA Urobilinogen (test code = UA 0.2 0.1-1.0 N Urobilinogen) [facility] AustinYadtdrfEUABAUVJEJ4413-44-04 11:46:54 Test Item Value Reference Range Interpretation Comments UA Nitrite (test code Negative (10/06/2013 N = UA Nitrite) 05:46:54) [facility] AustinSspqeozJASBBRQYMU1884-26-90 11:46:54 Test Item Value Reference Range Interpretation Comments UA Leuk Est (test code Small *ABN*(10/06/2013 A = UA Leuk Est) 05:46:54) [facility] AustinSvmaofaKAZPZNHYOC3140-47-50 11:46:54 Test Item Value Reference Range Interpretation Comments UA Glucose (test code Negative (10/06/2013 N = UA Glucose) 05:46:54) [facility] AustinGjhjuuiVLJXHYWQBK2275-50-94 11:46:54 Test Item Value Reference Range Interpretation Comments UA Protein (test code Negative (10/06/2013 N = UA Protein) 05:46:54) [facility] AustinHrlsnqyDCCWURRERE3715-64-57 11:46:54 Test Item Value Reference Range Interpretation Comments UA Ketones (test code Negative = UA Ketones) *NA*(10/06/2013 05:46:54) [facility] AustinZyphbpuLJZDAGOJVF9996-06-86 11:46:54 Test Item Value Reference Range Interpretation Comments UA Bili (test code = Negative *NA*(10/06/2013 UA Bili) 05:46:54) [facility] AustinFvvsfgqKHESXAYFUP8059-67-70 11:46:54 Test Item Value Reference Range Interpretation Comments UA pH (test code = UA pH) 6.0 1 5.0-8.0 N [facility] AustinElkdjbsEAMUSCYISR8413-47-09 11:46:54 Test Item Value Reference Range Interpretation Comments UA Turbidity (test code = UA Turbidity) Hazy [facility] AustinQalchvfFMLTYFLJTU1321-68-32 11:46:54 Test Item Value Reference Range Interpretation Comments UA Spec Grav (test code = UA Spec 1.015 1 N Grav) [facility]LzqkxjfPNDAKYFYYM9804-09-76 11:46:54 Test Item Value Reference Range Interpretation Comments UA Color (test code = Yellow *NA*(10/06/2013 UA Color) 05:46:54) [facility] AustinZotfitbPEKWDIQXLY5292-11-92 11:46:54 Test Item Value Reference Range Interpretation Comments UA Bacteria (test code = UA Few /HPF N Bacteria) [facility] AustinUvqcppoWAMNOMFUGP1535-55-41 11:46:54 Test Item Value Reference Range Interpretation Comments UA RBC (test code = UA RBC) 5-15 [facility] HospitalHwsqcyeFXUMJPTKHS9932-28-83 11:46:54 Test Item Value Reference Range Interpretation Comments UA WBC (test code = UA WBC) 11-20 /HPF A [facility] HospitalRkwolvtHKVUCJRGLA5605-56-71 11:46:54 Test Item Value Reference Range Interpretation Comments UA Sq Epi (test code = UA Sq Epi) Rare /LPF N [facility] AustinGaikeizWFMWPMIEIM9986-69-95 11:46:54 Test Item Value Reference Range Interpretation Comments UA Blood (test code = Small *ABN*(10/06/2013 A UA Blood) 05:46:54) [facility] AustinGzxtosuDPTOFZJFDX6721-47-72 11:46:54 Test Item Value Reference Range Interpretation Comments UA Urobilinogen (test code = UA 0.2 0.1-1.0 N Urobilinogen) [facility] AustinQqofjssIYDCNJFLVQ1784-48-53 11:46:54 Test Item Value Reference Range Interpretation Comments UA Nitrite (test code Negative (10/06/2013 N = UA Nitrite) 05:46:54) [facility] HospitalWgnvcfcHMSAOTBWAY8985-54-07 11:46:54 Test Item Value Reference Range Interpretation Comments UA Leuk Est (test code Small *ABN*(10/06/2013 A = UA Leuk Est) 05:46:54) [facility] HospitalOoprwdlRODJKNINLM5371-92-09 11:46:54 Test Item Value Reference Range Interpretation Comments UA Glucose (test code Negative (10/06/2013 N = UA Glucose) 05:46:54) [facility] AustinXfcuqxeMFVGRQAMIR0966-92-72 11:46:54 Test Item Value Reference Range Interpretation Comments UA Protein (test code Negative (10/06/2013 N = UA Protein) 05:46:54) [facility] AustinGwmxbgfMPXBHBYGIF5518-83-49 11:46:54 Test Item Value Reference Range Interpretation Comments UA Ketones (test code Negative = UA Ketones) *NA*(10/06/2013 05:46:54) [facility] AustinYbyhcwvSUOBGGXBEV5104-42-54 11:46:54 Test Item Value Reference Range Interpretation Comments UA Bili (test code = Negative *NA*(10/06/2013 UA Bili) 05:46:54) [facility] AustinGqoevbmISIBFRRSYD5184-46-53 11:46:54 Test Item Value Reference Range Interpretation Comments UA pH (test code = UA pH) 6.0 1 5.0-8.0 N [facility] AustinQehvtycVOCFRQJAKV3094-92-29 11:46:54 Test Item Value Reference Range Interpretation Comments UA Turbidity (test code = UA Turbidity) Hazy [facility] AustinWamenteQBSDGDRKVT7828-49-60 11:46:54 Test Item Value Reference Range Interpretation Comments UA Spec Grav (test code = UA Spec 1.015 1 N Grav) [facility] AustinZbayxcuFTIRVJSVDH6136-88-01 11:46:54 Test Item Value Reference Range Interpretation Comments UA Color (test code = Yellow *NA*(10/06/2013 UA Color) 05:46:54) [facility] AustinHlsssyaNDXSKVTESS4305-75-25 11:46:54 Test Item Value Reference Range Interpretation Comments UA Bacteria (test code = UA Few /HPF N Bacteria) [facility] AustinShvwxogLRXQVXCODB1332-59-72 11:46:54 Test Item Value Reference Range Interpretation Comments UA RBC (test code = UA RBC) 5-15 [facility] AustinPahsauiYYUGNQAZJM5975-38-30 11:46:54 Test Item Value Reference Range Interpretation Comments UA WBC (test code = UA WBC) 11-20 /HPF A [facility] AustinNskqdqcELUGMERJOZ3288-59-47 11:46:54 Test Item Value Reference Range Interpretation Comments UA Sq Epi (test code = UA Sq Epi) Rare /LPF N [facility] AustinKdfuvzuGELPSKBYVL0191-75-50 11:46:54 Test Item Value Reference Range Interpretation Comments UA Blood (test code = Small *ABN*(10/06/2013 A UA Blood) 05:46:54) [facility] AustinFupallvZRFDKSFMRF0088-51-57 11:46:54 Test Item Value Reference Range Interpretation Comments UA Urobilinogen (test code = UA 0.2 0.1-1.0 N Urobilinogen) [facility] AustinCtmrwhfRRWMGMGKSL3287-78-07 11:46:54 Test Item Value Reference Range Interpretation Comments UA Nitrite (test code Negative (10/06/2013 N = UA Nitrite) 05:46:54) [facility] AustinLxfsvnjDIWEMUSAPY4667-13-24 11:46:54 Test Item Value Reference Range Interpretation Comments UA Leuk Est (test code Small *ABN*(10/06/2013 A = UA Leuk Est) 05:46:54) [facility] HospitalJqnipdoIDKHUQMOPS0100-39-95 11:46:54 Test Item Value Reference Range Interpretation Comments UA Glucose (test code Negative (10/06/2013 N = UA Glucose) 05:46:54) [facility] AustinAoveryzKWYETPYHPE1775-77-13 11:46:54 Test Item Value Reference Range Interpretation Comments UA Protein (test code Negative (10/06/2013 N = UA Protein) 05:46:54) [facility] AustinCsnrfteDWAEZDAKNP4943-30-51 11:46:54 Test Item Value Reference Range Interpretation Comments UA Ketones (test code Negative = UA Ketones) *NA*(10/06/2013 05:46:54) [facility] AustinQhzlicwHTQQOUWKRY0911-55-71 11:46:54 Test Item Value Reference Range Interpretation Comments UA Bili (test code = Negative *NA*(10/06/2013 UA Bili) 05:46:54) [facility] AustinUidkddlUBHBDBCSUC6935-04-16 11:46:54 Test Item Value Reference Range Interpretation Comments UA Bacteria (test code = UA Few /HPF N Bacteria) [facility] AustinBqpvpqaGTWLSKYIWM3053-15-45 11:46:54 Test Item Value Reference Range Interpretation Comments UA RBC (test code = UA RBC) 5-15 [facility] HospitalWtmbdsvQDLFEVXLWK1778-67-80 11:46:54 Test Item Value Reference Range Interpretation Comments UA WBC (test code = UA WBC) 11-20 /HPF A [facility] HospitalZtotxwbVLMXOPHKVN3523-09-26 11:46:54 Test Item Value Reference Range Interpretation Comments UA Sq Epi (test code = UA Sq Epi) Rare /LPF N [facility] HospitalUpsexstMWPERUOMEQ8860-50-78 11:46:54 Test Item Value Reference Range Interpretation Comments UA Blood (test code = Small *ABN*(10/06/2013 A UA Blood) 05:46:54) [facility] AustinPgjaeqeWTKYKQNGEU9154-85-79 11:46:54 Test Item Value Reference Range Interpretation Comments UA Urobilinogen (test code = UA 0.2 0.1-1.0 N Urobilinogen) [facility] AustinXrblnqmMONSKCFPJX3591-74-94 11:46:54 Test Item Value Reference Range Interpretation Comments UA pH (test code = UA pH) 6.0 1 5.0-8.0 N [facility] AustinMjkosqsIVDTSUKYCQ1222-82-67 11:46:54 Test Item Value Reference Range Interpretation Comments UA Nitrite (test code Negative (10/06/2013 N = UA Nitrite) 05:46:54) [facility] AustinBbcvnjfMLISWZSAMT2831-70-63 11:46:54 Test Item Value Reference Range Interpretation Comments UA Leuk Est (test code Small *ABN*(10/06/2013 A = UA Leuk Est) 05:46:54) [facility] AustinOqdmunvZYJYUJWNXX0261-83-95 11:46:54 Test Item Value Reference Range Interpretation Comments UA Glucose (test code Negative (10/06/2013 N = UA Glucose) 05:46:54) [facility] AustinDaxqguoDGUFCCBKRJ7957-11-42 11:46:54 Test Item Value Reference Range Interpretation Comments UA Protein (test code Negative (10/06/2013 N = UA Protein) 05:46:54) [facility] AustinPygjrofCRCWUMIHUT4896-07-73 11:46:54 Test Item Value Reference Range Interpretation Comments UA Ketones (test code Negative = UA Ketones) *NA*(10/06/2013 05:46:54) [facility] AustinIjtvsimXUSFKMIZTF3601-23-15 11:46:54 Test Item Value Reference Range Interpretation Comments UA Bili (test code = Negative *NA*(10/06/2013 UA Bili) 05:46:54) [facility] AustinMzstftoNERHOAPISQ2669-15-98 11:46:54 Test Item Value Reference Range Interpretation Comments UA pH (test code = UA pH) 6.0 1 5.0-8.0 N [facility] AustinXmjxqmmHVWIJXVHUX2800-36-21 11:46:54 Test Item Value Reference Range Interpretation Comments UA Turbidity (test code = UA Turbidity) Hazy [facility] AustinGkvnixrSFGODMQRYW6181-07-61 11:46:54 Test Item Value Reference Range Interpretation Comments UA Spec Grav (test code = UA Spec 1.015 1 N Grav) [facility] HospitalOwtyuvjKXYFQOUPWC4226-41-08 11:46:54 Test Item Value Reference Range Interpretation Comments UA Color (test code = Yellow *NA*(10/06/2013 UA Color) 05:46:54) [facility] HospitalPdyvvjgDJXEOYPYKD7431-51-34 11:46:54 Test Item Value Reference Range Interpretation Comments UA Turbidity (test code = UA Turbidity) Hazy [facility] HospitalEmrxtofGVZLRXPBNH1126-18-74 11:46:54 Test Item Value Reference Range Interpretation Comments UA Spec Grav (test code = UA Spec 1.015 1 N Grav) [facility] HospitalJitzaygZNXLSMGYFD4945-00-82 11:46:54 Test Item Value Reference Range Interpretation Comments UA Color (test code = Yellow *NA*(10/06/2013 UA Color) 05:46:54) [facility] HospitalAfjsdklBHIRKOTAJV4104-71-50 11:46:54 Test Item Value Reference Range Interpretation Comments UA Bacteria (test code = UA Few /HPF N Bacteria) [facility] HospitalUelqjlmLUBFUYWWUU7435-73-34 11:46:54 Test Item Value Reference Range Interpretation Comments UA RBC (test code = UA RBC) 5-15 [facility] HospitalGkdszvzOHHAHIJHLF7110-56-35 11:46:54 Test Item Value Reference Range Interpretation Comments UA WBC (test code = UA WBC) 11-20 /HPF A [facility] HospitalDtreizaMGROIZTCUV7592-57-32 11:46:54 Test Item Value Reference Range Interpretation Comments UA Sq Epi (test code = UA Sq Epi) Rare /LPF N [facility] HospitalWepwxloSLFSVJMGJV0520-22-59 11:46:54 Test Item Value Reference Range Interpretation Comments UA Blood (test code = Small *ABN*(10/06/2013 A UA Blood) 05:46:54) [facility] HospitalDpngkysFJHWBHBNMO7788-58-15 11:46:54 Test Item Value Reference Range Interpretation Comments UA Urobilinogen (test code = UA 0.2 0.1-1.0 N Urobilinogen) [facility] HospitalSuqsbnjKIVDGYYSOA8575-15-05 11:46:54 Test Item Value Reference Range Interpretation Comments UA Nitrite (test code Negative (10/06/2013 N = UA Nitrite) 05:46:54) [facility] AustinSrcvkmmTQDKVMUXZI4981-32-57 11:46:54 Test Item Value Reference Range Interpretation Comments UA Leuk Est (test code Small *ABN*(10/06/2013 A = UA Leuk Est) 05:46:54) [facility] AustinFufgpamRPCQMHTPGF6777-39-62 11:46:54 Test Item Value Reference Range Interpretation Comments UA Glucose (test code Negative (10/06/2013 N = UA Glucose) 05:46:54) [facility] AustinGziurmdGNIWQOSICD3817-42-16 11:46:54 Test Item Value Reference Range Interpretation Comments UA Protein (test code Negative (10/06/2013 N = UA Protein) 05:46:54) [facility] AustinVlufartBEVWHFTXTX1026-64-20 11:46:54 Test Item Value Reference Range Interpretation Comments UA Ketones (test code Negative = UA Ketones) *NA*(10/06/2013 05:46:54) [facility] AustinOflaxhrJPEANNPMJO2226-84-84 11:46:54 Test Item Value Reference Range Interpretation Comments UA Bili (test code = Negative *NA*(10/06/2013 UA Bili) 05:46:54) [facility] AustinDgexggwXTAWFJPKGL8246-14-21 11:46:54 Test Item Value Reference Range Interpretation Comments UA pH (test code = UA pH) 6.0 1 5.0-8.0 N [facility] AustinVblzideVAWUKQLMUF1707-10-68 11:46:54 Test Item Value Reference Range Interpretation Comments UA Turbidity (test code = UA Turbidity) Hazy [facility] AustinLrytbxyHDVVWGDSUP5413-88-94 11:46:54 Test Item Value Reference Range Interpretation Comments UA Spec Grav (test code = UA Spec 1.015 1 N Grav) [facility] AustinLednzreOHQSTZUDDA4015-23-83 11:46:54 Test Item Value Reference Range Interpretation Comments UA Color (test code = Yellow *NA*(10/06/2013 UA Color) 05:46:54) [facility] AustinKsqkfpbQRZTOOSKLK2962-62-69 11:46:54 Test Item Value Reference Range Interpretation Comments UA Bacteria (test code = UA Few /HPF N Bacteria) [facility] AustinTcqqcbqHOCMRKTMUJ9929-48-26 11:46:54 Test Item Value Reference Range Interpretation Comments UA RBC (test code = UA RBC) 5-15 [facility] AustinGfsankaNYOGNALVVU5022-97-12 11:46:54 Test Item Value Reference Range Interpretation Comments UA WBC (test code = UA WBC) 11-20 /HPF A [facility] HospitalHmqqnriBQEMUDNXXJ7404-27-47 11:46:54 Test Item Value Reference Range Interpretation Comments UA Sq Epi (test code = UA Sq Epi) Rare /LPF N [facility] AustinAminvdlKWRSIGNWXB8240-29-35 11:46:54 Test Item Value Reference Range Interpretation Comments UA Blood (test code = Small *ABN*(10/06/2013 A UA Blood) 05:46:54) [facility] AustinBmfrnvtPDLMKYXEZX9568-75-72 11:46:54 Test Item Value Reference Range Interpretation Comments UA Urobilinogen (test code = UA 0.2 0.1-1.0 N Urobilinogen) [facility] AustinGxsjqinDZBLDYFMES8414-99-63 11:46:54 Test Item Value Reference Range Interpretation Comments UA Nitrite (test code Negative (10/06/2013 N = UA Nitrite) 05:46:54) [facility] AustinDhlsgovNJXMZYMMZR2205-96-39 11:46:54 Test Item Value Reference Range Interpretation Comments UA Leuk Est (test code Small *ABN*(10/06/2013 A = UA Leuk Est) 05:46:54) [facility] AustinRkgapgmSJUMRCKJJF7326-84-79 11:46:54 Test Item Value Reference Range Interpretation Comments UA Glucose (test code Negative (10/06/2013 N = UA Glucose) 05:46:54) [facility] AustinIbddlbfWBGUHLUXDN6654-30-52 11:46:54 Test Item Value Reference Range Interpretation Comments UA Protein (test code Negative (10/06/2013 N = UA Protein) 05:46:54) [facility] AustinEcfxdphJWFJYHCNLH3782-37-63 11:46:54 Test Item Value Reference Range Interpretation Comments UA Ketones (test code Negative = UA Ketones) *NA*(10/06/2013 05:46:54) [facility] AustinUxpoxpcVNCTAKYZDZ2683-97-45 11:46:54 Test Item Value Reference Range Interpretation Comments UA Bili (test code = Negative *NA*(10/06/2013 UA Bili) 05:46:54) [facility] AustinXtsysfgLPWADJQSYO1442-65-31 11:46:54 Test Item Value Reference Range Interpretation Comments UA pH (test code = UA pH) 6.0 1 5.0-8.0 N [facility] HospitalVmxufcyKGFABINCIO3829-79-77 11:46:54 Test Item Value Reference Range Interpretation Comments UA Turbidity (test code = UA Turbidity) Hazy [facility] AustinKchqzfdYYFRRRZZWF7776-42-35 11:46:54 Test Item Value Reference Range Interpretation Comments UA Spec Grav (test code = UA Spec 1.015 1 N Grav) [facility] AustinXnexswbQTFTLMXVAY3407-51-22 11:46:54 Test Item Value Reference Range Interpretation Comments UA Color (test code = Yellow *NA*(10/06/2013 UA Color) 05:46:54) [facility] AustinOkgjmdwOFFFJLMOCR5919-82-91 11:46:54 Test Item Value Reference Range Interpretation Comments UA Bacteria (test code = UA Few /HPF N Bacteria) [facility] AustinKpojzhqVYJRSAMMKM1403-85-94 11:46:54 Test Item Value Reference Range Interpretation Comments UA RBC (test code = UA RBC) 5-15 [facility] AustinIvoeeqaPMBPMOLTGJ5295-27-86 11:46:54 Test Item Value Reference Range Interpretation Comments UA WBC (test code = UA WBC) 11-20 /HPF A [facility] HospitalYxaboutEMVZGNIBLW4393-09-58 11:46:54 Test Item Value Reference Range Interpretation Comments UA Sq Epi (test code = UA Sq Epi) Rare /LPF N [facility] AustinFlrjsbjHNQTZSVGHS6898-12-84 11:46:54 Test Item Value Reference Range Interpretation Comments UA Blood (test code = Small *ABN*(10/06/2013 A UA Blood) 05:46:54) [facility] AustinIszyqcgATHZYAQJLT7419-55-03 11:46:54 Test Item Value Reference Range Interpretation Comments UA Urobilinogen (test code = UA 0.2 0.1-1.0 N Urobilinogen) [facility] AustinIiiysevPTHZEQYOYR7987-16-29 11:46:54 Test Item Value Reference Range Interpretation Comments UA Nitrite (test code Negative (10/06/2013 N = UA Nitrite) 05:46:54) [facility] AustinBtmbbkpNQGPWQGIDP6208-32-58 11:46:54 Test Item Value Reference Range Interpretation Comments UA Leuk Est (test code Small *ABN*(10/06/2013 A = UA Leuk Est) 05:46:54) [facility] AustinCqaeuewTSSAMYMAMM0219-82-54 11:46:54 Test Item Value Reference Range Interpretation Comments UA Glucose (test code Negative (10/06/2013 N = UA Glucose) 05:46:54) [facility] HospitalZopygfdAVKZAIMKPT0028-21-82 11:46:54 Test Item Value Reference Range Interpretation Comments UA Protein (test code Negative (10/06/2013 N = UA Protein) 05:46:54) [facility] AustinBpakruoORQIGQPUAR3291-47-16 11:46:54 Test Item Value Reference Range Interpretation Comments UA Ketones (test code Negative = UA Ketones) *NA*(10/06/2013 05:46:54) [facility] AustinKfyzicoTBBHXCQGKO1470-28-96 11:46:54 Test Item Value Reference Range Interpretation Comments UA Bili (test code = Negative *NA*(10/06/2013 UA Bili) 05:46:54) [facility] AustinRquzhadFAJCZOAQNA0058-79-18 11:46:54 Test Item Value Reference Range Interpretation Comments UA pH (test code = UA pH) 6.0 1 5.0-8.0 N [facility] AustinXuiefolBUACOSNNND3698-97-34 11:46:54 Test Item Value Reference Range Interpretation Comments UA Turbidity (test code = UA Turbidity) Hazy [facility] AustinOmtjabsIUJELHOCDD0348-68-38 11:46:54 Test Item Value Reference Range Interpretation Comments UA Spec Grav (test code = UA Spec 1.015 1 N Grav) [facility] AustinXqjvkmkKNBVKRTWRT4879-51-05 11:46:54 Test Item Value Reference Range Interpretation Comments UA Color (test code = Yellow *NA*(10/06/2013 UA Color) 05:46:54) [facility] HospitalNpckxayGDKVYDOSIP5866-55-89 11:46:54 Test Item Value Reference Range Interpretation Comments UA Bacteria (test code = UA Few /HPF N Bacteria) [facility] AustinCmplubvHTFKPZKBUO3232-60-65 11:46:54 Test Item Value Reference Range Interpretation Comments UA RBC (test code = UA RBC) 5-15 [facility] HospitalVfcdinnJFINIPCSOG0260-25-96 11:46:54 Test Item Value Reference Range Interpretation Comments UA WBC (test code = UA WBC) 11-20 /HPF A [facility] HospitalSbpmunwNOQJCXXXYT7342-95-59 11:46:54 Test Item Value Reference Range Interpretation Comments UA Sq Epi (test code = UA Sq Epi) Rare /LPF N [facility] AustinAzcqofjZXGHVTTPXO6184-01-88 11:46:54 Test Item Value Reference Range Interpretation Comments UA Blood (test code = Small *ABN*(10/06/2013 A UA Blood) 05:46:54) [facility] AustinTujiaqnVCNRPZLKFZ3613-98-02 11:46:54 Test Item Value Reference Range Interpretation Comments UA Urobilinogen (test code = UA 0.2 0.1-1.0 N Urobilinogen) [facility] AustinNrnjthzKTCIMVUIQM9082-37-20 11:46:54 Test Item Value Reference Range Interpretation Comments UA Nitrite (test code Negative (10/06/2013 N = UA Nitrite) 05:46:54) [facility] AustinUjpyouzTISSCLRJTQ3214-73-19 11:46:54 Test Item Value Reference Range Interpretation Comments UA Leuk Est (test code Small *ABN*(10/06/2013 A = UA Leuk Est) 05:46:54) [facility] AustinIaustjuLUJZWCFWUS9880-47-23 11:46:54 Test Item Value Reference Range Interpretation Comments UA Glucose (test code Negative (10/06/2013 N = UA Glucose) 05:46:54) [facility] AustinUfwotffRVNCPUHQUC7533-76-36 11:46:54 Test Item Value Reference Range Interpretation Comments UA Protein (test code Negative (10/06/2013 N = UA Protein) 05:46:54) [facility] AustinRukxcvxXQXMPDBLDO3447-41-84 11:46:54 Test Item Value Reference Range Interpretation Comments UA Ketones (test code Negative = UA Ketones) *NA*(10/06/2013 05:46:54) [facility] AustinOghfuklLYGTHNPNCT4878-16-56 11:46:54 Test Item Value Reference Range Interpretation Comments UA Bili (test code = Negative *NA*(10/06/2013 UA Bili) 05:46:54) [facility] AustinEzjldxwXTQHQWQXXN5248-03-52 11:46:54 Test Item Value Reference Range Interpretation Comments UA pH (test code = UA pH) 6.0 1 5.0-8.0 N [facility] AustinBrfweerBNCJOIEGWX4697-36-22 11:46:54 Test Item Value Reference Range Interpretation Comments UA Turbidity (test code = UA Turbidity) Hazy [facility] AustinNrsxabnXTQJCVVYMW4387-33-78 11:46:54 Test Item Value Reference Range Interpretation Comments UA Spec Grav (test code = UA Spec 1.015 1 N Grav) [facility] HospitalMcloklqZGWKIDBTPQ5116-57-59 11:46:54 Test Item Value Reference Range Interpretation Comments UA Color (test code = Yellow *NA*(10/06/2013 UA Color) 05:46:54) [facility] AustinBvhoorkFWCEDFNNAZ6404-85-03 11:46:54 Test Item Value Reference Range Interpretation Comments UA Bacteria (test code = UA Few /HPF N Bacteria) [facility] AustinPdzsnxxKKUQUTZUKC7674-79-21 11:46:54 Test Item Value Reference Range Interpretation Comments UA RBC (test code = UA RBC) 5-15 [facility] AustinUbvzumsJUKJLKKYAZ4085-69-97 11:46:54 Test Item Value Reference Range Interpretation Comments UA WBC (test code = UA WBC) 11-20 /HPF A [facility] AustinGwckhxvFMBPESPIDZ2721-62-66 11:46:54 Test Item Value Reference Range Interpretation Comments UA Sq Epi (test code = UA Sq Epi) Rare /LPF N [facility] AustinJraqkroJWGAVOKQUE3936-58-98 11:46:54 Test Item Value Reference Range Interpretation Comments UA Blood (test code = Small *ABN*(10/06/2013 A UA Blood) 05:46:54) [facility] AustinSwrxndhZFSLXXFEBD7936-89-56 11:46:54 Test Item Value Reference Range Interpretation Comments UA Urobilinogen (test code = UA 0.2 0.1-1.0 N Urobilinogen) [facility] AustinJkaskidHURMCAXBCY1285-71-34 11:46:54 Test Item Value Reference Range Interpretation Comments UA Nitrite (test code Negative (10/06/2013 N = UA Nitrite) 05:46:54) [facility] AustinHmybeniKRGTFIMHUJ8807-38-35 11:46:54 Test Item Value Reference Range Interpretation Comments UA Leuk Est (test code Small *ABN*(10/06/2013 A = UA Leuk Est) 05:46:54) [facility] AustinKksxhykWRFPEVGGZD1468-07-41 11:46:54 Test Item Value Reference Range Interpretation Comments UA Glucose (test code Negative (10/06/2013 N = UA Glucose) 05:46:54) [facility] [facility] AustinFyuamgpDENGCSLVLF7443-88-44 11:46:54 Test Item Value Reference Range Interpretation Comments UA Protein (test code Negative (10/06/2013 N = UA Protein) 05:46:54) [facility]CyjkxbwBLXWRKSMCZ5936-40-29 11:46:54 Test Item Value Reference Range Interpretation Comments UA Ketones (test code Negative = UA Ketones) *NA*(10/06/2013 05:46:54) [facility] AustinXpegwgtQCRMETAYKE9916-26-42 11:46:54 Test Item Value Reference Range Interpretation Comments UA Bili (test code = Negative *NA*(10/06/2013 UA Bili) 05:46:54) [facility] AustinJhgwkhzNDDNNLGEXX9296-50-47 11:46:54 Test Item Value Reference Range Interpretation Comments UA pH (test code = UA pH) 6.0 1 5.0-8.0 N [facility] AustinYmojyprRKMSWJUWEC4649-71-03 11:46:54 Test Item Value Reference Range Interpretation Comments UA Turbidity (test code = UA Turbidity) Hazy [facility] AustinGwfmmjkUSSHYXIZQC9960-30-53 11:46:54 Test Item Value Reference Range Interpretation Comments UA Spec Grav (test code = UA Spec 1.015 1 N Grav) [facility] AustinYoppoccCVYZFVMCLA6061-88-73 11:46:54 Test Item Value Reference Range Interpretation Comments UA Color (test code = Yellow *NA*(10/06/2013 UA Color) 05:46:54) [facility] AustinQniheioVPRBBDMAZB5346-92-83 11:46:54 Test Item Value Reference Range Interpretation Comments UA Bacteria (test code = UA Few /HPF N Bacteria) [facility] AustinDsbnawkAVTDHAIGQI2577-59-52 11:46:54 Test Item Value Reference Range Interpretation Comments UA RBC (test code = UA RBC) 5-15 [facility] AustinVscoglfKTWYGXTQEM7038-42-93 11:46:54 Test Item Value Reference Range Interpretation Comments UA WBC (test code = UA WBC) 11-20 /HPF A [facility] HospitalZhhgrveELMKWQKMHE1997-86-90 11:46:54 Test Item Value Reference Range Interpretation Comments UA Sq Epi (test code = UA Sq Epi) Rare /LPF N [facility] AustinOnomilvZXUAYHMRGE4991-86-45 11:46:54 Test Item Value Reference Range Interpretation Comments UA Blood (test code = Small *ABN*(10/06/2013 A UA Blood) 05:46:54) [facility] AustinJjbrgjnRESUFDGOAK2519-47-22 11:46:54 Test Item Value Reference Range Interpretation Comments UA Urobilinogen (test code = UA 0.2 0.1-1.0 N Urobilinogen) [facility] AustinGunjudjYOHWPFDYPZ3026-79-82 11:46:54 Test Item Value Reference Range Interpretation Comments UA Nitrite (test code Negative (10/06/2013 N = UA Nitrite) 05:46:54) [facility] AustinYcsisidIKHUXWUUUA5037-62-58 11:46:54 Test Item Value Reference Range Interpretation Comments UA Leuk Est (test code Small *ABN*(10/06/2013 A = UA Leuk Est) 05:46:54) [facility] AustinMikzconSTMZXZDPOS7663-00-29 11:46:54 Test Item Value Reference Range Interpretation Comments UA Glucose (test code Negative (10/06/2013 N = UA Glucose) 05:46:54) [facility] AustinKbmelxgTEHMFMJWSM5877-19-61 11:46:54 Test Item Value Reference Range Interpretation Comments UA Protein (test code Negative (10/06/2013 N = UA Protein) 05:46:54) [facility] AustinEewfrypVIHPIJTCZP2006-89-29 11:46:54 Test Item Value Reference Range Interpretation Comments UA Ketones (test code Negative = UA Ketones) *NA*(10/06/2013 05:46:54) [facility] AustinUfocikxQUGXUBDFDP6687-89-84 11:46:54 Test Item Value Reference Range Interpretation Comments UA Bili (test code = Negative *NA*(10/06/2013 UA Bili) 05:46:54) [facility] AustinUnzhoxuOEOONGDHDX5258-06-35 11:46:54 Test Item Value Reference Range Interpretation Comments UA pH (test code = UA pH) 6.0 1 5.0-8.0 N [facility] AustinOvadoeeVEMPIQUBAZ2257-37-17 11:46:54 Test Item Value Reference Range Interpretation Comments UA Turbidity (test code = UA Turbidity) Hazy [facility] AustinPbsxnjfELFGJBLSMW0600-96-70 11:46:54 Test Item Value Reference Range Interpretation Comments UA Spec Grav (test code = UA Spec 1.015 1 N Grav) [facility] AustinPydftgkIGPWOUGMYO1746-28-09 11:46:54 Test Item Value Reference Range Interpretation Comments UA Color (test code = Yellow *NA*(10/06/2013 UA Color) 05:46:54) [facility] AustinPpnfhyuTVUBSLUMHX7125-45-93 11:46:54 Test Item Value Reference Range Interpretation Comments UA Bacteria (test code = UA Few /HPF N Bacteria) [facility] AustinXcbgrszOCOLSYBODK2213-70-08 11:46:54 Test Item Value Reference Range Interpretation Comments UA RBC (test code = UA RBC) 5-15 [facility] AustinZuicoyyGMDRYFFWYJ2836-84-61 11:46:54 Test Item Value Reference Range Interpretation Comments UA WBC (test code = UA WBC) 11-20 /HPF A [facility] HospitalFdexskgOCNEPRSFFS4826-19-32 11:46:54 Test Item Value Reference Range Interpretation Comments UA Sq Epi (test code = UA Sq Epi) Rare /LPF N [facility] AustinJgnvkbbYJUZVCFCFL3261-33-67 11:46:54 Test Item Value Reference Range Interpretation Comments UA Blood (test code = Small *ABN*(10/06/2013 A UA Blood) 05:46:54) [facility] AustinLyzorycOTEYAXVVDJ9277-22-06 11:46:54 Test Item Value Reference Range Interpretation Comments UA Urobilinogen (test code = UA 0.2 0.1-1.0 N Urobilinogen) [facility] AustinZbokswgSCYIRQWLPC0274-43-01 11:46:54 Test Item Value Reference Range Interpretation Comments UA Nitrite (test code Negative (10/06/2013 N = UA Nitrite) 05:46:54) [facility] AustinKkdrxbyRKGAYVGACD3189-42-58 11:46:54 Test Item Value Reference Range Interpretation Comments UA Leuk Est (test code Small *ABN*(10/06/2013 A = UA Leuk Est) 05:46:54) [facility] AustinJywrlkuSRHESGCZJG3373-96-74 11:46:54 Test Item Value Reference Range Interpretation Comments UA Glucose (test code Negative (10/06/2013 N = UA Glucose) 05:46:54) [facility] AustinZftnomaTWYQBLKCDY9190-69-26 11:46:54 Test Item Value Reference Range Interpretation Comments UA Protein (test code Negative (10/06/2013 N = UA Protein) 05:46:54) [facility] AustinTllofipVDGLGXATJS7414-62-11 11:46:54 Test Item Value Reference Range Interpretation Comments UA Ketones (test code Negative = UA Ketones) *NA*(10/06/2013 05:46:54) [facility] AustinRfbrrjqCADVWZUMMA2876-71-34 11:46:54 Test Item Value Reference Range Interpretation Comments UA Bili (test code = Negative *NA*(10/06/2013 UA Bili) 05:46:54) [facility] HospitalMqrephbYVTAYRIIIM9764-22-99 11:46:54 Test Item Value Reference Range Interpretation Comments UA pH (test code = UA pH) 6.0 1 5.0-8.0 N [facility] HospitalShcjxhjJZNDTWLQTL1565-76-17 11:46:54 Test Item Value Reference Range Interpretation Comments UA Turbidity (test code = UA Turbidity) Hazy [facility] HospitalNysqeciTBPFYCINGV9809-28-71 11:46:54 Test Item Value Reference Range Interpretation Comments UA Spec Grav (test code = UA Spec 1.015 1 N Grav) [facility] HospitalHusogbrQUEHUPLNHJ2351-07-28 11:46:54 Test Item Value Reference Range Interpretation Comments UA Color (test code = Yellow *NA*(10/06/2013 UA Color) 05:46:54) [facility] [employer] DJTQRDG6159-49-67 06:30:00 Test Item Value Reference Range Interpretation Comments Antibody Scrn (test Negative (10/06/2013 N code = Antibody Scrn) 00:30:00) [facility] [employer] RELDHXO2305-98-20 06:30:00 Test Item Value Reference Range Interpretation Comments ABO/Rh (test code = ABO/Rh) [facility]EsqxkcwERFGFKAQD3928-74-32 06:30:00 Test Item Value Reference Range Interpretation Comments Lactic Acid Lvl (test code = Lactic 1.3 0.5-2.2 N Acid Lvl) [facility] HospitalQnyycyqYFJLGMRCS5520-40-26 06:30:00 Test Item Value Reference Range Interpretation Comments BE Salo (test code = 1 See_Comment N [Automa dewayne message] The BE Salo) system which ge nerated this result transmit dewayne reference range : <=2. The reference range was not used to interpr et this result as dallin l/abnormal. [facility]EfzstnyXWZJMPKXQ1443-21-28 06:30:00 Test Item Value Reference Range Interpretation Comments O2 Sat Salo (test code = O2 Sat Salo) 54.5 40.0-70.0 N [facility] HospitalUhsweroBXZFFNIVP7776-53-11 06:30:00 Test Item Value Reference Range Interpretation Comments Temp Salo (test code = Temp Salo) 37.0 [facility]cyhOEGVMIAAE3580-62-65 06:30:00 Test Item Value Reference Range Interpretation Comments HCO3 Salo (test code = HCO3 Salo) 29 22-26 H [facility] CenterVdspqzuJSRIIRLJJ9033-89-24 06:30:00 Test Item Value Reference Range Interpretation Comments pCO2 Salo (test code = pCO2 Salo) 62 38-52 H [facility] CenterMnjyhmsLNKMPICUF8255-86-05 06:30:00 Test Item Value Reference Range Interpretation Comments pH Salo (test code = pH Salo) 7.28 7.28-7.42 N [facility] CenterIhegyrbVPEMCEGCC2824-97-84 06:30:00 Test Item Value Reference Range Interpretation Comments pO2 Salo (test code = pO2 Salo) 33 20-49 N [facility] CenterOwejczeDKDYGBQLO9546-75-59 06:30:00 Test Item Value Reference Range Interpretation Comments Phosphorus (test code = Phosphorus) 4.6 2.5-4.5 H [facility] CenterJtjyhoiOLMJXBBLJ5885-77-26 06:30:00 Test Item Value Reference Range Interpretation Comments Magnesium Lvl (test code = Magnesium 2.0 1.8-2.4 N Lvl) [facility]TrezarkGHRYWJSWVU2746-80-72 06:30:00 Test Item Value Reference Range Interpretation Comments Max Amp (test code = Max Amp) 65 mm 52-71 N [facility] NortheastQjkyxgkQLLDLHMHFP5367-52-01 06:30:00 Test Item Value Reference Range Interpretation Comments G-value (test code = G-value) 9.1 5.0-11.6 N [facility] NortheastIpconzrFPJSMPIAVM9876-83-70 06:30:00 Test Item Value Reference Range Interpretation Comments K-time (test code = K-time) 0.9 min 0.6-2.3 N [facility] NortheastLlwdcrrVQCFKNXMBW1067-84-67 06:30:00 Test Item Value Reference Range Interpretation Comments Rapid TEG Sample Type Citrated Whole Blood (test code = Rapid TEG Sample Type) [facility] NortheastSzmfheqXYOXXGQRFL7381-40-71 06:30:00 Test Item Value Reference Range Interpretation Comments ACT (TEG) (test code = ACT (TEG)) 144 s 86-118 H [facility] NortheastNfnptqxSNIHWKWBEB6406-79-31 06:30:00 Test Item Value Reference Range Interpretation Comments Split Point (test code = Split Point) 0.8 min [facility] NortheastTqirzdzEXARGJKTOH8488-86-81 06:30:00 Test Item Value Reference Range Interpretation Comments Angle (test code = Angle) 78 degrees 64-80 N [facility] HospitalHgzluzkNQWELCPVYC0586-18-95 06:30:00 Test Item Value Reference Range Interpretation Comments R-time (test code = R-time) 1.0 min 0.4-0.7 H [facility] HospitalOnzmcmfWUGLRHJEQI1987-71-88 06:30:00 Test Item Value Reference Range Interpretation Comments Estimated % Lysis (test 3.7 See_Comment N [Au tomated message] The code = Estimated % system wh ich generated Lysis) this result tra nsmitted reference range : <=7.5. The reference r andreia was not used to int erpret this result as normal/abnormal . [facility] [employer] UCHBTXK7181-58-05 06:30:00 Test Item Value Reference Range Interpretation Comments Antibody Scrn (test Negative (10/06/2013 N code = Antibody Scrn) 00:30:00) [facility] [employer] OVUEJNN8593-11-71 06:30:00 Test Item Value Reference Range Interpretation Comments ABO/Rh (test code = ABO/Rh) A POS [facility] LydcosfQLXNJQPRT4206-29-95 06:30:00 Test Item Value Reference Range Interpretation Comments Lactic Acid Lvl (test code = Lactic 1.3 0.5-2.2 N Acid Lvl) [facility] HospitalKfciqqtPYBFZAASK6292-70-47 06:30:00 Test Item Value Reference Range Interpretation Comments BE Salo (test code = 1 See_Comment N [Automa dewayne message] The BE Salo) system which ge nerated this result transmit dewayne reference range : <=2. The reference range was not used to interpr et this result as dallin l/abnormal. [facility] VwcjwlhIIFCWUWWE9688-27-65 06:30:00 Test Item Value Reference Range Interpretation Comments O2 Sat Salo (test code = O2 Sat Salo) 54.5 40.0-70.0 N [facility] HospitalWxeypggHKGPYSGCV8464-30-31 06:30:00 Test Item Value Reference Range Interpretation Comments Temp Salo (test code = Temp Salo) 37.0 [facility] HospitalDugxbzaFOJCZMAOR4125-75-26 06:30:00 Test Item Value Reference Range Interpretation Comments HCO3 Salo (test code = HCO3 Salo) 29 22-26 H [facility] CenterLzquapbESUQZPQTN2875-16-03 06:30:00 Test Item Value Reference Range Interpretation Comments pCO2 Salo (test code = pCO2 Salo) 62 38-52 H [facility] CenterKpakuoeQRESFGWFP3722-29-26 06:30:00 Test Item Value Reference Range Interpretation Comments pH Salo (test code = pH Salo) 7.28 7.28-7.42 N [facility] CenterAvcbuilAKOUUNBXL0252-77-36 06:30:00 Test Item Value Reference Range Interpretation Comments pO2 Salo (test code = pO2 Salo) 33 20-49 N [facility] CenterJajcadiMJBWJOCFT5615-54-18 06:30:00 Test Item Value Reference Range Interpretation Comments Phosphorus (test code = Phosphorus) 4.6 2.5-4.5 H [facility] CenterBhphwynKMNVOTSBF8779-14-63 06:30:00 Test Item Value Reference Range Interpretation Comments Magnesium Lvl (test code = Magnesium 2.0 1.8-2.4 N Lvl) [facility]MznimdwRPADTNXOEO9862-74-89 06:30:00 Test Item Value Reference Range Interpretation Comments Max Amp (test code = Max Amp) 65 mm 52-71 N [facility] NortheastLcomssjPQZJFLANWQ8391-21-38 06:30:00 Test Item Value Reference Range Interpretation Comments G-value (test code = G-value) 9.1 5.0-11.6 N [facility] NortheastRkfoupmAFIGVUGRWW0808-75-16 06:30:00 Test Item Value Reference Range Interpretation Comments K-time (test code = K-time) 0.9 min 0.6-2.3 N [facility] NortheastGrdpxmtUUJFZQXPWD3012-47-84 06:30:00 Test Item Value Reference Range Interpretation Comments Rapid TEG Sample Type Citrated Whole Blood (test code = Rapid TEG Sample Type) [facility] NortheastSyguzloCIYZMUUKMD1169-33-29 06:30:00 Test Item Value Reference Range Interpretation Comments ACT (TEG) (test code = ACT (TEG)) 144 s 86-118 H [facility] NortheastIoifhdhTZFOFPVIRS3525-72-68 06:30:00 Test Item Value Reference Range Interpretation Comments Split Point (test code = Split Point) 0.8 min [facility] NortheastGpbpreqXXQPPAHWCE9880-08-18 06:30:00 Test Item Value Reference Range Interpretation Comments Angle (test code = Angle) 78 degrees 64-80 N [facility] NortheastPuczgbuGTPUBKACHH6764-28-60 06:30:00 Test Item Value Reference Range Interpretation Comments R-time (test code = R-time) 1.0 min 0.4-0.7 H [facility] HospitalXdrrxrtXBPICPUJMI0097-16-92 06:30:00 Test Item Value Reference Range Interpretation Comments Estimated % Lysis (test 3.7 See_Comment N [Au tomated message] The code = Estimated % system wh ich generated Lysis) this result tra nsmitted reference range : <=7.5. The reference r andreia was not used to int erpret this result as normal/abnormal . [facility] [employer] ICJSNKL8014-90-20 06:30:00 Test Item Value Reference Range Interpretation Comments Antibody Scrn (test Negative (10/06/2013 N code = Antibody Scrn) 00:30:00) [facility] [employer] LTUCUNZ0430-03-32 06:30:00 Test Item Value Reference Range Interpretation Comments ABO/Rh (test code = ABO/Rh) A POS [facility] BvqtjbxETERDWXIV8023-76-74 06:30:00 Test Item Value Reference Range Interpretation Comments Lactic Acid Lvl (test code = Lactic 1.3 0.5-2.2 N Acid Lvl) [facility] AqffocrEZQZFRSCS6633-76-46 06:30:00 Test Item Value Reference Range Interpretation Comments BE Salo (test code = 1 See_Comment N [Automa dewayne message] The BE Salo) system which ge nerated this result transmit dewayne reference range : <=2. The reference range was not used to interpr et this result as dallin l/abnormal. [facility] HxvvalnRCNTJVFBY5232-52-94 06:30:00 Test Item Value Reference Range Interpretation Comments O2 Sat Salo (test code = O2 Sat Salo) 54.5 40.0-70.0 N [facility] WvmqauvJPGCDKDRM4694-54-04 06:30:00 Test Item Value Reference Range Interpretation Comments Temp Salo (test code = Temp Salo) 37.0 [facility] HospitalRkcszoiWMQJDAIJO2444-27-28 06:30:00 Test Item Value Reference Range Interpretation Comments HCO3 Salo (test code = HCO3 Salo) 29 22-26 H [facility] XmxiylyRHJENBUDL9152-19-68 06:30:00 Test Item Value Reference Range Interpretation Comments pCO2 Salo (test code = pCO2 Salo) 62 38-52 H [facility] AckcfcbACYITGIHJ3369-96-47 06:30:00 Test Item Value Reference Range Interpretation Comments pH Salo (test code = pH Salo) 7.28 7.28-7.42 N [facility] CenterZzcunhiJHHKYYOJQ9290-42-26 06:30:00 Test Item Value Reference Range Interpretation Comments pO2 Salo (test code = pO2 Salo) 33 20-49 N [facility] CenterPguzbvzZHZFMDSYI4178-40-93 06:30:00 Test Item Value Reference Range Interpretation Comments Phosphorus (test code = Phosphorus) 4.6 2.5-4.5 H [facility] CenterVcebtgfZYVUQDZDD6027-94-57 06:30:00 Test Item Value Reference Range Interpretation Comments Magnesium Lvl (test code = Magnesium 2.0 1.8-2.4 N Lvl) [facility] NortheastYqealghUGPPMFXOOC6115-42-23 06:30:00 Test Item Value Reference Range Interpretation Comments Max Amp (test code = Max Amp) 65 mm 52-71 N [facility] NortheastRbxuvetMBLMQCFSND9046-68-21 06:30:00 Test Item Value Reference Range Interpretation Comments G-value (test code = G-value) 9.1 5.0-11.6 N [facility] NortheastYwsrymfNTUOTDIDPG6885-54-60 06:30:00 Test Item Value Reference Range Interpretation Comments K-time (test code = K-time) 0.9 min 0.6-2.3 N [facility] NortheastTbrugucZTYABCRRZH9423-26-93 06:30:00 Test Item Value Reference Range Interpretation Comments Rapid TEG Sample Type Citrated Whole Blood (test code = Rapid TEG Sample Type) [facility] NortheastAsnzsrzZLTFKTBSBO4310-10-55 06:30:00 Test Item Value Reference Range Interpretation Comments ACT (TEG) (test code = ACT (TEG)) 144 s 86-118 H [facility] NortheastXzcfxzcMUHMVADECV1690-87-36 06:30:00 Test Item Value Reference Range Interpretation Comments Split Point (test code = Split Point) 0.8 min [facility] NortheastHiznykrKJKYJIXWXU3852-71-59 06:30:00 Test Item Value Reference Range Interpretation Comments Angle (test code = Angle) 78 degrees 64-80 N [facility] NortheastArxwxbbABZHRBLXYB0007-16-48 06:30:00 Test Item Value Reference Range Interpretation Comments R-time (test code = R-time) 1.0 min 0.4-0.7 H [facility] NortheastIcdxzepLDZKWGFBIN5688-21-78 06:30:00 Test Item Value Reference Range Interpretation Comments Estimated % Lysis (test 3.7 See_Comment N [Au tomated message] The code = Estimated % system wh ich generated Lysis) this result tra nsmitted reference range : <=7.5. The reference r andreia was not used to int erpret this result as normal/abnormal . [facility] [employer] PXOAHTN9175-65-53 06:30:00 Test Item Value Reference Range Interpretation Comments Antibody Scrn (test Negative (10/06/2013 N code = Antibody Scrn) 00:30:00) [facility] [employer] EDHJMRV3138-07-97 06:30:00 Test Item Value Reference Range Interpretation Comments ABO/Rh (test code = ABO/Rh) A POS [facility] OkjcfjxZXIDZJNVM4041-94-78 06:30:00 Test Item Value Reference Range Interpretation Comments Lactic Acid Lvl (test code = Lactic 1.3 0.5-2.2 N Acid Lvl) [facility] HospitalZicjcyhKZZGWZJBM7652-20-23 06:30:00 Test Item Value Reference Range Interpretation Comments BE Salo (test code = 1 See_Comment N [Automa dewayne message] The BE Salo) system which ge nerated this result transmit dewayne reference range : <=2. The reference range was not used to interpr et this result as dallin l/abnormal. [facility] HospitalWzktaevKJJOVUXFQ2994-09-38 06:30:00 Test Item Value Reference Range Interpretation Comments O2 Sat Salo (test code = O2 Sat Salo) 54.5 40.0-70.0 N [facility] HospitalYedcyhnZBFSRHJQR6934-85-79 06:30:00 Test Item Value Reference Range Interpretation Comments Temp Salo (test code = Temp Salo) 37.0 [facility] HospitalJvoamtzTRTWKQUYW8091-12-68 06:30:00 Test Item Value Reference Range Interpretation Comments HCO3 Salo (test code = HCO3 Salo) 29 22-26 H [facility] HospitalIsjawpdIBFRQSCFX3551-39-13 06:30:00 Test Item Value Reference Range Interpretation Comments pCO2 Salo (test code = pCO2 Salo) 62 38-52 H [facility] HospitalIioxjoeNZLLBUSNS7251-49-43 06:30:00 Test Item Value Reference Range Interpretation Comments pH Salo (test code = pH Salo) 7.28 7.28-7.42 N [facility] HospitalPepkokjAZWXTOITD6184-56-43 06:30:00 Test Item Value Reference Range Interpretation Comments pO2 Salo (test code = pO2 Salo) 33 20-49 N [facility] CenterBtfkrasDPNGBKQDQ9856-39-77 06:30:00 Test Item Value Reference Range Interpretation Comments Phosphorus (test code = Phosphorus) 4.6 2.5-4.5 H [facility] CenterIqcpmomWVVCTUEKC5023-99-18 06:30:00 Test Item Value Reference Range Interpretation Comments Magnesium Lvl (test code = Magnesium 2.0 1.8-2.4 N Lvl) [facility] NortheastWyvdnjhEIJUBCTBJS2684-64-80 06:30:00 Test Item Value Reference Range Interpretation Comments Max Amp (test code = Max Amp) 65 mm 52-71 N [facility] NortheastKduatetYHBJIZOXOM1466-44-41 06:30:00 Test Item Value Reference Range Interpretation Comments G-value (test code = G-value) 9.1 5.0-11.6 N [facility] NortheastDjfsibtKGPRWPLETL6578-64-06 06:30:00 Test Item Value Reference Range Interpretation Comments K-time (test code = K-time) 0.9 min 0.6-2.3 N [facility] NortheastTplwouoXNAFYDSOAJ4938-04-00 06:30:00 Test Item Value Reference Range Interpretation Comments Rapid TEG Sample Type Citrated Whole Blood (test code = Rapid TEG Sample Type) [facility] NortheastLmkguaiWNXVMDINEN8936-99-43 06:30:00 Test Item Value Reference Range Interpretation Comments ACT (TEG) (test code = ACT (TEG)) 144 s 86-118 H [facility] NortheastTznmgdeFMTFFSVREA5375-61-63 06:30:00 Test Item Value Reference Range Interpretation Comments Split Point (test code = Split Point) 0.8 min [facility] NortheastOitsjbqJWKGLTLKOH2054-86-40 06:30:00 Test Item Value Reference Range Interpretation Comments Angle (test code = Angle) 78 degrees 64-80 N [facility] NortheastXuhpjqgMDASYBCEOU2834-82-40 06:30:00 Test Item Value Reference Range Interpretation Comments R-time (test code = R-time) 1.0 min 0.4-0.7 H [facility] NortheastQzkjtgjPRDPQJJGNO6846-67-45 06:30:00 Test Item Value Reference Range Interpretation Comments Estimated % Lysis (test 3.7 See_Comment N [Au tomated message] The code = Estimated % system wh ich generated Lysis) this result tra nsmitted reference range : <=7.5. The reference r andreia was not used to int erpret this result as normal/abnormal . [facility] [employer] YHIRHZK5416-00-45 06:30:00 Test Item Value Reference Range Interpretation Comments Antibody Scrn (test Negative (10/06/2013 N code = Antibody Scrn) 00:30:00) [facility] [employer] XQDKJAI2746-50-78 06:30:00 Test Item Value Reference Range Interpretation Comments ABO/Rh (test code = ABO/Rh) A POS [facility] UoqtixyDKZIOASOB4962-79-89 06:30:00 Test Item Value Reference Range Interpretation Comments Lactic Acid Lvl (test code = Lactic 1.3 0.5-2.2 N Acid Lvl) [facility] SqyolvhBGVTUTJTX8858-84-08 06:30:00 Test Item Value Reference Range Interpretation Comments BE Salo (test code = 1 See_Comment N [Automa dewayne message] The BE Salo) system which ge nerated this result transmit dewayne reference range : <=2. The reference range was not used to interpr et this result as dallin l/abnormal. [facility] LsxoameWILBECQBZ2513-22-06 06:30:00 Test Item Value Reference Range Interpretation Comments O2 Sat Salo (test code = O2 Sat Salo) 54.5 40.0-70.0 N [facility] ZrwfbfuLZTKCBTZL4871-39-94 06:30:00 Test Item Value Reference Range Interpretation Comments Temp Salo (test code = Temp Salo) 37.0 [facility] PmwsenrRZRNCPHUT5640-07-23 06:30:00 Test Item Value Reference Range Interpretation Comments HCO3 Salo (test code = HCO3 Salo) 29 22-26 H [facility] [employer] NSNFRPM6102-12-62 06:30:00 Test Item Value Reference Range Interpretation Comments Antibody Scrn (test Negative (10/06/2013 N code = Antibody Scrn) 00:30:00) [facility] OsspjgqQEGVNVRAB9999-58-45 06:30:00 Test Item Value Reference Range Interpretation Comments pCO2 Salo (test code = pCO2 Salo) 62 38-52 H [facility] [employer] DRUSCEU3419-90-33 06:30:00 Test Item Value Reference Range Interpretation Comments ABO/Rh (test code = ABO/Rh) A POS [facility] HmszqfuMLFCXGYJF5512-88-82 06:30:00 Test Item Value Reference Range Interpretation Comments Lactic Acid Lvl (test code = Lactic 1.3 0.5-2.2 N Acid Lvl) [facility]XptppbaVTVTAJNPY2346-79-50 06:30:00 Test Item Value Reference Range Interpretation Comments BE Salo (test code = 1 See_Comment N [Automa dewayne message] The BE Salo) system which ge nerated this result transmit dewayne reference range : <=2. The reference range was not used to interpr et this result as dallin l/abnormal. [facility] CenterFnsfoezWNUKMEFKI2799-01-91 06:30:00 Test Item Value Reference Range Interpretation Comments O2 Sat Salo (test code = O2 Sat Salo) 54.5 40.0-70.0 N [facility] CenterMtnluooLGGEBAGVR4380-84-98 06:30:00 Test Item Value Reference Range Interpretation Comments Temp Salo (test code = Temp Salo) 37.0 [facility] CenterMugztwwEMOETZQEI3629-65-13 06:30:00 Test Item Value Reference Range Interpretation Comments HCO3 Salo (test code = HCO3 Salo) 29 22-26 H [facility] CenterGwqtchaUYNQVNQCS9159-48-60 06:30:00 Test Item Value Reference Range Interpretation Comments pCO2 Salo (test code = pCO2 Salo) 62 38-52 H [facility] CenterUibkewgRPYHBPWHQ9477-59-59 06:30:00 Test Item Value Reference Range Interpretation Comments pH Salo (test code = pH Salo) 7.28 7.28-7.42 N [facility] CenterRstafppASYYZZLFN9342-53-64 06:30:00 Test Item Value Reference Range Interpretation Comments pO2 Salo (test code = pO2 Salo) 33 20-49 N [facility] CenterRinklpwJWUYFUSUA7458-45-68 06:30:00 Test Item Value Reference Range Interpretation Comments Phosphorus (test code = Phosphorus) 4.6 2.5-4.5 H [facility] CenterCgrmrisYFETVNYNB4809-71-59 06:30:00 Test Item Value Reference Range Interpretation Comments pH Salo (test code = pH Salo) 7.28 7.28-7.42 N [facility] CenterSnkeysdCFRLRZPGK7784-16-24 06:30:00 Test Item Value Reference Range Interpretation Comments Magnesium Lvl (test code = Magnesium 2.0 1.8-2.4 N Lvl) [facility]BrouulbOEQSCJSGZL2631-17-27 06:30:00 Test Item Value Reference Range Interpretation Comments Max Amp (test code = Max Amp) 65 mm 52-71 N [facility] NortheastYawchskMNTXARALSD1737-77-16 06:30:00 Test Item Value Reference Range Interpretation Comments G-value (test code = G-value) 9.1 5.0-11.6 N [facility] NortheastPvndgooLKCXYSRYMJ3164-96-68 06:30:00 Test Item Value Reference Range Interpretation Comments K-time (test code = K-time) 0.9 min 0.6-2.3 N [facility] NortheastVtfyujhMNSUHIARSZ8749-11-24 06:30:00 Test Item Value Reference Range Interpretation Comments Rapid TEG Sample Type Citrated Whole Blood (test code = Rapid TEG Sample Type) [facility] NortheastJxmetjkBFKEIOWSKM4094-19-05 06:30:00 Test Item Value Reference Range Interpretation Comments ACT (TEG) (test code = ACT (TEG)) 144 s 86-118 H [facility] NortheastEghclbwCKVLHCEKHL2266-26-53 06:30:00 Test Item Value Reference Range Interpretation Comments Split Point (test code = Split Point) 0.8 min [facility] NortheastScupylnGWXORLIYWZ8463-27-25 06:30:00 Test Item Value Reference Range Interpretation Comments Angle (test code = Angle) 78 degrees 64-80 N [facility] NortheastHoszfljXXYVFKARWP4375-43-15 06:30:00 Test Item Value Reference Range Interpretation Comments R-time (test code = R-time) 1.0 min 0.4-0.7 H [facility] NortheastTlzwknaMYDIRYUZAC2685-18-32 06:30:00 Test Item Value Reference Range Interpretation Comments Estimated % Lysis (test 3.7 See_Comment N [Au tomated message] The code = Estimated % system wh ich generated Lysis) this result tra nsmitted reference range : <=7.5. The reference r andreia was not used to int erpret this result as normal/abnormal . [facility] CenterMtpemmzPXXKPXSFT4110-94-94 06:30:00 Test Item Value Reference Range Interpretation Comments pO2 Salo (test code = pO2 Salo) 33 20-49 N [facility] CenterHfdmmmdTBVLUILIU3284-04-83 06:30:00 Test Item Value Reference Range Interpretation Comments Phosphorus (test code = Phosphorus) 4.6 2.5-4.5 H [facility] CenterYddvkfbWZZYRZXRK7036-50-09 06:30:00 Test Item Value Reference Range Interpretation Comments Magnesium Lvl (test code = Magnesium 2.0 1.8-2.4 N Lvl) [facility] NortheastBapmoyeCNIKNRYWPP8350-37-79 06:30:00 Test Item Value Reference Range Interpretation Comments Max Amp (test code = Max Amp) 65 mm 52-71 N [facility] NortheastDwvugxxNNQKXCCGYS9845-06-61 06:30:00 Test Item Value Reference Range Interpretation Comments G-value (test code = G-value) 9.1 5.0-11.6 N [facility]WnebupsJXTBTUEZOV4902-52-44 06:30:00 Test Item Value Reference Range Interpretation Comments K-time (test code = K-time) 0.9 min 0.6-2.3 N [facility] HospitalGiztdxdFEJJCYZXGS3955-23-55 06:30:00 Test Item Value Reference Range Interpretation Comments Rapid TEG Sample Type Citrated Whole Blood (test code = Rapid TEG Sample Type) [facility] HospitalLqgsghiUUKJOVWURF9044-62-39 06:30:00 Test Item Value Reference Range Interpretation Comments ACT (TEG) (test code = ACT (TEG)) 144 s 86-118 H [facility] HospitalGmuaehpNHCPCXWWDJ4761-89-27 06:30:00 Test Item Value Reference Range Interpretation Comments Split Point (test code = Split Point) 0.8 min [facility] HospitalGvoxpqxLNFGVIFNHW5588-01-58 06:30:00 Test Item Value Reference Range Interpretation Comments Angle (test code = Angle) 78 degrees 64-80 N [facility] HospitalKxuigxsANWTLCEVDG3330-13-17 06:30:00 Test Item Value Reference Range Interpretation Comments R-time (test code = R-time) 1.0 min 0.4-0.7 H [facility] HospitalFftpghaQPAUDOZZIM9294-34-86 06:30:00 Test Item Value Reference Range Interpretation Comments Estimated % Lysis (test 3.7 See_Comment N [Au tomated message] The code = Estimated % system wh ich generated Lysis) this result tra nsmitted reference range : <=7.5. The reference r andreia was not used to int erpret this result as normal/abnormal . [employer] GDKQAWA8960-14-06 06:30:00 Test Item Value Reference Range Interpretation Comments Antibody Scrn (test Negative (10/06/2013 N code = Antibody Scrn) 00:30:00) [facility] [employer] BFKVXMA9340-54-47 06:30:00 Test Item Value Reference Range Interpretation Comments ABO/Rh (test code = ABO/Rh) A POS [facility] CenterVuadjdbRFLGGRDMD8831-07-21 06:30:00 Test Item Value Reference Range Interpretation Comments Lactic Acid Lvl (test code = Lactic 1.3 0.5-2.2 N Acid Lvl) [facility] CenterLucfzdoYDKQCYTBY8473-16-29 06:30:00 Test Item Value Reference Range Interpretation Comments BE Salo (test code = 1 See_Comment N [Automa dewayne message] The BE Salo) system which ge nerated this result transmit dewayne reference range : <=2. The reference range was not used to interpr et this result as dallin l/abnormal. [facility] CenterGyykkevVMXSVJZTC9264-13-53 06:30:00 Test Item Value Reference Range Interpretation Comments O2 Sat Salo (test code = O2 Sat Salo) 54.5 40.0-70.0 N [facility] CenterLatujvtXSDMXJRPZ5392-75-01 06:30:00 Test Item Value Reference Range Interpretation Comments Temp Salo (test code = Temp Salo) 37.0 [facility] CenterQwglhghYXTZGDQYP2983-39-91 06:30:00 Test Item Value Reference Range Interpretation Comments HCO3 Salo (test code = HCO3 Salo) 29 22-26 H [facility] CenterSpniohtXUFTAVVNF6202-35-42 06:30:00 Test Item Value Reference Range Interpretation Comments pCO2 Salo (test code = pCO2 Salo) 62 38-52 H [facility] CenterRqxjidhQFPTAILNP6231-85-06 06:30:00 Test Item Value Reference Range Interpretation Comments pH Salo (test code = pH Salo) 7.28 7.28-7.42 N [facility] CenterGsiyrnxEPMPMMXMR1205-26-18 06:30:00 Test Item Value Reference Range Interpretation Comments pO2 Salo (test code = pO2 Salo) 33 20-49 N [facility] CenterUcjitrmIKJLRHMVP6973-85-42 06:30:00 Test Item Value Reference Range Interpretation Comments Phosphorus (test code = Phosphorus) 4.6 2.5-4.5 H [facility] CenterZlvquctUQKJSCJBM9695-37-94 06:30:00 Test Item Value Reference Range Interpretation Comments Magnesium Lvl (test code = Magnesium 2.0 1.8-2.4 N Lvl) [facility] NortheastNyovdulSIVTQNOJRQ6321-62-67 06:30:00 Test Item Value Reference Range Interpretation Comments Max Amp (test code = Max Amp) 65 mm 52-71 N [facility] NortheastCvhluxqYMWMCRZKIA7487-60-75 06:30:00 Test Item Value Reference Range Interpretation Comments G-value (test code = G-value) 9.1 5.0-11.6 N [facility] NortheastSeitsmfAHVXXWAZGQ7078-91-72 06:30:00 Test Item Value Reference Range Interpretation Comments K-time (test code = K-time) 0.9 min 0.6-2.3 N [facility] NortheastStqrwfdZYYAUOBZNX0067-82-88 06:30:00 Test Item Value Reference Range Interpretation Comments Rapid TEG Sample Type Citrated Whole Blood (test code = Rapid TEG Sample Type) [facility] NortheastHpnlxamMAREZEYDJN7952-87-18 06:30:00 Test Item Value Reference Range Interpretation Comments ACT (TEG) (test code = ACT (TEG)) 144 s 86-118 H [facility] NortheastEeqqvemNUUAHLEPIZ9909-89-72 06:30:00 Test Item Value Reference Range Interpretation Comments Split Point (test code = Split Point) 0.8 min [facility] NortheastNtkpmpgMXLOVJJKFT8201-31-83 06:30:00 Test Item Value Reference Range Interpretation Comments Angle (test code = Angle) 78 degrees 64-80 N [facility] NortheastRdggqqqAGQVRVQSCY3940-43-00 06:30:00 Test Item Value Reference Range Interpretation Comments R-time (test code = R-time) 1.0 min 0.4-0.7 H [facility] HospitalAuhmhkwCCKHXTZBGI3354-16-87 06:30:00 Test Item Value Reference Range Interpretation Comments Estimated % Lysis (test 3.7 See_Comment N [Au tomated message] The code = Estimated % system wh ich generated Lysis) this result tra nsmitted reference range : <=7.5. The reference r andreia was not used to int erpret this result as normal/abnormal . [facility] [employer] DRZATAN1257-12-32 06:30:00 Test Item Value Reference Range Interpretation Comments Antibody Scrn (test Negative (10/06/2013 N code = Antibody Scrn) 00:30:00) [facility] NDGWSPL4211-18-68 06:30:00 Test Item Value Reference Range Interpretation Comments ABO/Rh (test code = ABO/Rh) A POS [facility] HospitalPznnlkrJLXJBEVVQ8184-84-71 06:30:00 Test Item Value Reference Range Interpretation Comments Lactic Acid Lvl (test code = Lactic 1.3 0.5-2.2 N Acid Lvl) [facility] CenterBshfoymEURGVELCK4318-67-01 06:30:00 Test Item Value Reference Range Interpretation Comments BE Salo (test code = 1 See_Comment N [Automa dewayne message] The BE Salo) system which ge nerated this result transmit dewayne reference range : <=2. The reference range was not used to interpr et this result as dallin l/abnormal. [facility] CenterAqfilizUXLBEYGTB4398-06-91 06:30:00 Test Item Value Reference Range Interpretation Comments O2 Sat Salo (test code = O2 Sat Salo) 54.5 40.0-70.0 N [facility] CenterYifeoupIGGOCMDNM6790-08-24 06:30:00 Test Item Value Reference Range Interpretation Comments Temp Salo (test code = Temp Salo) 37.0 [facility] CenterPmhqeitGGCJBLRCX7209-02-78 06:30:00 Test Item Value Reference Range Interpretation Comments HCO3 Salo (test code = HCO3 Salo) 29 22-26 H [facility] CenterOyoinluZRJNPOMAB2459-93-52 06:30:00 Test Item Value Reference Range Interpretation Comments pCO2 Salo (test code = pCO2 Salo) 62 38-52 H [facility] CenterTkfgudqKMOGXFRSY8715-46-61 06:30:00 Test Item Value Reference Range Interpretation Comments pH Salo (test code = pH Salo) 7.28 7.28-7.42 N [facility] CenterRtknpaxDYGGHNHYJ9679-97-70 06:30:00 Test Item Value Reference Range Interpretation Comments pO2 Salo (test code = pO2 Salo) 33 20-49 N [facility] CenterMdakuekJTXJRJFJG3187-87-99 06:30:00 Test Item Value Reference Range Interpretation Comments Phosphorus (test code = Phosphorus) 4.6 2.5-4.5 H [facility] CenterBuctrxgJBNLVCLGM5759-05-78 06:30:00 Test Item Value Reference Range Interpretation Comments Magnesium Lvl (test code = Magnesium 2.0 1.8-2.4 N Lvl) [facility] NortheastTzufrgnLCILYANVRU7956-23-45 06:30:00 Test Item Value Reference Range Interpretation Comments Max Amp (test code = Max Amp) 65 mm 52-71 N [facility] NortheastFdtbcvcJMXGWHBPSH3145-29-04 06:30:00 Test Item Value Reference Range Interpretation Comments G-value (test code = G-value) 9.1 5.0-11.6 N [facility] NortheastLvztrmoOIZAMIEGEA7030-49-44 06:30:00 Test Item Value Reference Range Interpretation Comments K-time (test code = K-time) 0.9 min 0.6-2.3 N [facility] NortheastFveqtetZZSBIWDAGL4552-17-88 06:30:00 Test Item Value Reference Range Interpretation Comments Rapid TEG Sample Type Citrated Whole Blood (test code = Rapid TEG Sample Type) [facility] NortheastAhtazteBFSAZRSHEA3021-51-35 06:30:00 Test Item Value Reference Range Interpretation Comments ACT (TEG) (test code = ACT (TEG)) 144 s 86-118 H [facility] NortheastQeecbloHMCCNWVJUU2069-25-65 06:30:00 Test Item Value Reference Range Interpretation Comments Split Point (test code = Split Point) 0.8 min [facility] NortheastJkhpnmiTZKYDHFIOM3095-18-82 06:30:00 Test Item Value Reference Range Interpretation Comments Angle (test code = Angle) 78 degrees 64-80 N [facility] NortheastHxgsmulHVDUGOEKHH5278-24-19 06:30:00 Test Item Value Reference Range Interpretation Comments R-time (test code = R-time) 1.0 min 0.4-0.7 H [facility] NortheastIseelkaVCQSDWZGFP4994-26-32 06:30:00 Test Item Value Reference Range Interpretation Comments Estimated % Lysis (test 3.7 See_Comment N [Au tomated message] The code = Estimated % system wh ich generated Lysis) this result tra nsmitted reference range : <=7.5. The reference r andreia was not used to int erpret this result as normal/abnormal . [facility] [employer] LUJKLDR1114-14-91 06:30:00 Test Item Value Reference Range Interpretation Comments Antibody Scrn (test Negative (10/06/2013 N code = Antibody Scrn) 00:30:00) [facility] [employer] HDADWHI3965-45-34 06:30:00 Test Item Value Reference Range Interpretation Comments ABO/Rh (test code = ABO/Rh) A POS [facility] HospitalJsbhyqrLORAZQWYF8900-06-98 06:30:00 Test Item Value Reference Range Interpretation Comments Lactic Acid Lvl (test code = Lactic 1.3 0.5-2.2 N Acid Lvl) [facility] HospitalRzmlhatYDKRSFHHW1856-88-46 06:30:00 Test Item Value Reference Range Interpretation Comments BE Salo (test code = 1 See_Comment N [Automa dewayne message] The BE Salo) system which ge nerated this result transmit dewayne reference range : <=2. The reference range was not used to interpr et this result as dallin l/abnormal. [facility] CenterYzmmjmfXWAUSFRXQ4070-21-05 06:30:00 Test Item Value Reference Range Interpretation Comments O2 Sat Salo (test code = O2 Sat Salo) 54.5 40.0-70.0 N [facility] CenterMmltcrfPLERPHKXF7864-57-80 06:30:00 Test Item Value Reference Range Interpretation Comments Temp Salo (test code = Temp Salo) 37.0 [facility] CenterSdkzplyMYSSPYPAL2745-73-84 06:30:00 Test Item Value Reference Range Interpretation Comments HCO3 Salo (test code = HCO3 Salo) 29 22-26 H [facility] CenterXpncrhsJTLJRCYTW0752-82-11 06:30:00 Test Item Value Reference Range Interpretation Comments pCO2 Salo (test code = pCO2 Salo) 62 38-52 H [facility] CenterEjlaznnGIEAIBLQY8073-23-30 06:30:00 Test Item Value Reference Range Interpretation Comments pH Salo (test code = pH Salo) 7.28 7.28-7.42 N [facility] CenterUqhofyuLGBSKWNAP8788-47-78 06:30:00 Test Item Value Reference Range Interpretation Comments pO2 Salo (test code = pO2 Salo) 33 20-49 N [facility] CenterJmkfgqbJKNNGLLNC8251-62-41 06:30:00 Test Item Value Reference Range Interpretation Comments Phosphorus (test code = Phosphorus) 4.6 2.5-4.5 H [facility] CenterWogvztdAEOFZDMJU0157-14-37 06:30:00 Test Item Value Reference Range Interpretation Comments Magnesium Lvl (test code = Magnesium 2.0 1.8-2.4 N Lvl) [facility] NortheastVdvyjldRJROXUYMQZ0563-05-15 06:30:00 Test Item Value Reference Range Interpretation Comments Max Amp (test code = Max Amp) 65 mm 52-71 N [facility] NortheastMoypdyjOJMFSHRQZF5875-94-79 06:30:00 Test Item Value Reference Range Interpretation Comments G-value (test code = G-value) 9.1 5.0-11.6 N [facility] NortheastVokntowFEEEZQLYWO5489-11-63 06:30:00 Test Item Value Reference Range Interpretation Comments K-time (test code = K-time) 0.9 min 0.6-2.3 N [facility] NortheastGyvdngvQRVXZXEHRP1596-95-26 06:30:00 Test Item Value Reference Range Interpretation Comments Rapid TEG Sample Type Citrated Whole Blood (test code = Rapid TEG Sample Type) [facility] HospitalElpuwdbVPWZKVASQF1302-98-32 06:30:00 Test Item Value Reference Range Interpretation Comments ACT (TEG) (test code = ACT (TEG)) 144 s 86-118 H [facility] NortheastNhshagcUCCTJJNLNJ7856-58-72 06:30:00 Test Item Value Reference Range Interpretation Comments Split Point (test code = Split Point) 0.8 min [facility] NortheastIpkzkixCIENJTVSNU0120-23-43 06:30:00 Test Item Value Reference Range Interpretation Comments Angle (test code = Angle) 78 degrees 64-80 N [facility] NortheastFvpkcbkUQPAUDGDVI9731-22-97 06:30:00 Test Item Value Reference Range Interpretation Comments R-time (test code = R-time) 1.0 min 0.4-0.7 H [facility] NortheastTsjappgZJFJFNUEGF1920-56-41 06:30:00 Test Item Value Reference Range Interpretation Comments Estimated % Lysis (test 3.7 See_Comment N [Au tomated message] The code = Estimated % system wh ich generated Lysis) this result tra nsmitted reference range : <=7.5. The reference r andreia was not used to int erpret this result as normal/abnormal . [facility] MKHVEAG4460-99-97 06:30:00 Test Item Value Reference Range Interpretation Comments Antibody Scrn (test Negative (10/06/2013 N code = Antibody Scrn) 00:30:00) [facility] NBCYNVD0106-95-56 06:30:00 Test Item Value Reference Range Interpretation Comments ABO/Rh (test code = ABO/Rh) A POS [facility]fdffCHLPLIZPM3078-28-62 06:30:00 Test Item Value Reference Range Interpretation Comments Lactic Acid Lvl (test code = Lactic 1.3 0.5-2.2 N Acid Lvl) [facility] HospitalUknbzomFSZOGKCNW8905-65-73 06:30:00 Test Item Value Reference Range Interpretation Comments BE Salo (test code = 1 See_Comment N [Automa dewayne message] The BE Salo) system which ge nerated this result transmit dewayne reference range : <=2. The reference range was not used to interpr et this result as dallin l/abnormal. [facility] HospitalHaimyazXHBPPOVJJ9414-85-20 06:30:00 Test Item Value Reference Range Interpretation Comments O2 Sat Salo (test code = O2 Sat Salo) 54.5 40.0-70.0 N [facility] CenterFwxajlnTUJMYTYNA4936-28-03 06:30:00 Test Item Value Reference Range Interpretation Comments Temp Salo (test code = Temp Salo) 37.0 [facility] CenterLisgxcjOMVYFQWIY2867-27-66 06:30:00 Test Item Value Reference Range Interpretation Comments HCO3 Salo (test code = HCO3 Salo) 29 22-26 H [facility] CenterKciujgvKXUQCXQKM7049-00-36 06:30:00 Test Item Value Reference Range Interpretation Comments pCO2 Salo (test code = pCO2 Salo) 62 38-52 H [facility] CenterYiiqmlgJPAJIEKDJ6373-30-58 06:30:00 Test Item Value Reference Range Interpretation Comments pH Salo (test code = pH Salo) 7.28 7.28-7.42 N [facility] CenterTxzdccnEXTDYKHCX0794-43-68 06:30:00 Test Item Value Reference Range Interpretation Comments pO2 Salo (test code = pO2 Salo) 33 20-49 N [facility] CenterOrchedxNHCCCFRYV8042-52-55 06:30:00 Test Item Value Reference Range Interpretation Comments Phosphorus (test code = Phosphorus) 4.6 2.5-4.5 H [facility] CenterXfexoehGRDRRPXPL7034-90-43 06:30:00 Test Item Value Reference Range Interpretation Comments Magnesium Lvl (test code = Magnesium 2.0 1.8-2.4 N Lvl) [facility] NortheastYrdzbfmHTHUHYESCN7320-19-04 06:30:00 Test Item Value Reference Range Interpretation Comments Max Amp (test code = Max Amp) 65 mm 52-71 N [facility] NortheastPglpcurIYBHKCWJET4660-78-04 06:30:00 Test Item Value Reference Range Interpretation Comments G-value (test code = G-value) 9.1 5.0-11.6 N [facility] NortheastLvgobwuWCBJHBYWDX2613-59-48 06:30:00 Test Item Value Reference Range Interpretation Comments K-time (test code = K-time) 0.9 min 0.6-2.3 N [facility] NortheastFmvtynjZXAXMNCQZW9041-10-14 06:30:00 Test Item Value Reference Range Interpretation Comments Rapid TEG Sample Type Citrated Whole Blood (test code = Rapid TEG Sample Type) [facility] NortheastBxqkyzsPUGFZTBKDS9747-19-50 06:30:00 Test Item Value Reference Range Interpretation Comments ACT (TEG) (test code = ACT (TEG)) 144 s 86-118 H [facility] HospitalGajwwizAFEZTVGBVQ8341-83-34 06:30:00 Test Item Value Reference Range Interpretation Comments Split Point (test code = Split Point) 0.8 min [facility] HospitalZkcxjrlSWWCYDUXSM4274-28-52 06:30:00 Test Item Value Reference Range Interpretation Comments Angle (test code = Angle) 78 degrees 64-80 N [facility] HospitalLrlttljWSFENQYQBY1376-70-59 06:30:00 Test Item Value Reference Range Interpretation Comments R-time (test code = R-time) 1.0 min 0.4-0.7 H [facility] HospitalCwedepvVRZNOHSDKD8918-64-64 06:30:00 Test Item Value Reference Range Interpretation Comments Estimated % Lysis (test 3.7 See_Comment N [Au tomated message] The code = Estimated % system wh ich generated Lysis) this result tra nsmitted reference range : <=7.5. The reference r andreia was not used to int erpret this result as normal/abnormal . [facility] [employer] NPHCBIY1320-88-03 06:30:00 Test Item Value Reference Range Interpretation Comments Antibody Scrn (test Negative (10/06/2013 N code = Antibody Scrn) 00:30:00) [facility] [employer] LULCPQT8069-57-13 06:30:00 Test Item Value Reference Range Interpretation Comments ABO/Rh (test code = ABO/Rh) A POS [facility] HospitalZycqrznCOUBDJMXY7986-33-29 06:30:00 Test Item Value Reference Range Interpretation Comments Lactic Acid Lvl (test code = Lactic 1.3 0.5-2.2 N Acid Lvl) [facility] HospitalWplzxvrVOFRIOHEA2561-16-59 06:30:00 Test Item Value Reference Range Interpretation Comments BE Salo (test code = BE Salo) 1 <=2 N [facility] HospitalXonfnkeHZCMPGWZF1161-60-66 06:30:00 Test Item Value Reference Range Interpretation Comments O2 Sat Salo (test code = O2 Sat Salo) 54.5 40.0-70.0 N [facility] HospitalUisffpgDMNFMRMUI8972-37-95 06:30:00 Test Item Value Reference Range Interpretation Comments Temp Salo (test code = Temp Salo) 37.0 [facility] [facility]ctircvWEATIEUGR1652-26-64 06:30:00 Test Item Value Reference Range Interpretation Comments HCO3 Salo (test code = HCO3 Salo) 29 22-26 H [facility] CenterIhyqehkHCCSUQGNS1584-30-53 06:30:00 Test Item Value Reference Range Interpretation Comments pCO2 Salo (test code = pCO2 Salo) 62 38-52 H [facility] CenterCvbrrreCJDPONSIW8935-48-85 06:30:00 Test Item Value Reference Range Interpretation Comments pH Salo (test code = pH Salo) 7.28 7.28-7.42 N [facility] CenterGexkakmNEDOOQRAP2153-29-13 06:30:00 Test Item Value Reference Range Interpretation Comments pO2 Salo (test code = pO2 Salo) 33 20-49 N [facility] CenterQgivqayKJHMYBWXD6945-41-76 06:30:00 Test Item Value Reference Range Interpretation Comments Phosphorus (test code = Phosphorus) 4.6 2.5-4.5 H [facility] CenterVwtczthDFBBCOWOG2099-46-34 06:30:00 Test Item Value Reference Range Interpretation Comments Magnesium Lvl (test code = Magnesium 2.0 1.8-2.4 N Lvl) [facility]ElprzdbDUCXFCOKRS0128-15-14 06:30:00 Test Item Value Reference Range Interpretation Comments Max Amp (test code = Max Amp) 65 mm 52-71 N [facility] NortheastTurcflmJFAHIPVNFV2610-90-87 06:30:00 Test Item Value Reference Range Interpretation Comments G-value (test code = G-value) 9.1 5.0-11.6 N [facility] NortheastOlyqsrrXSYNRDGUJK1515-91-97 06:30:00 Test Item Value Reference Range Interpretation Comments K-time (test code = K-time) 0.9 min 0.6-2.3 N [facility] NortheastPktiylxIZJTPWHMJF2978-54-51 06:30:00 Test Item Value Reference Range Interpretation Comments Rapid TEG Sample Type Citrated Whole Blood (test code = Rapid TEG Sample Type) [facility] NortheastHqmjznsVXXYAHAKDE9768-88-00 06:30:00 Test Item Value Reference Range Interpretation Comments ACT (TEG) (test code = ACT (TEG)) 144 s 86-118 H [facility] NortheastGvjkumqBCMFLNZDLG8449-76-76 06:30:00 Test Item Value Reference Range Interpretation Comments Split Point (test code = Split Point) 0.8 min [facility] NortheastBucpeftXDTXWQVFYM3392-32-55 06:30:00 Test Item Value Reference Range Interpretation Comments Angle (test code = Angle) 78 degrees 64-80 N [facility] NortheastSgklcymMCYOFECCAX9104-29-66 06:30:00 Test Item Value Reference Range Interpretation Comments R-time (test code = R-time) 1.0 min 0.4-0.7 [facility]XxkwsctEIPRVZHYTI4460-91-02 06:30:00 Test Item Value Reference Range Interpretation Comments Estimated % Lysis (test code = 3.7 <=7.5 N Estimated % Lysis) [facility]wikifolio SUXSINF5718-40-18 06:30:00 Test Item Value Reference Range Interpretation Comments Antibody Scrn (test Negative (10/06/2013 N code = Antibody Scrn) 00:30:00) [facility]CRAiL[facility] JHFGUSQ5596-79-90 06:30:00 Test Item Value Reference Range Interpretation Comments ABO/Rh (test code = ABO/Rh) A POS [facility] CenterDcobmeePUGDPLSAR7561-36-07 06:30:00 Test Item Value Reference Range Interpretation Comments Lactic Acid Lvl (test code = Lactic 1.3 0.5-2.2 N Acid Lvl) [facility] CenterYijkgviUGCFZBENN9623-52-06 06:30:00 Test Item Value Reference Range Interpretation Comments BE Salo (test code = 1 See_Comment N [Automa dewayne message] The BE Salo) system which ge nerated this result transmit dewayne reference range : <=2. The reference range was not used to interpr et this result as dallin l/abnormal. [facility] CenterCwhvrswSEHXVGKUD9134-57-69 06:30:00 Test Item Value Reference Range Interpretation Comments O2 Sat Salo (test code = O2 Sat Salo) 54.5 40.0-70.0 N [facility] CenterJenjwbhGIFJYACVF6365-45-26 06:30:00 Test Item Value Reference Range Interpretation Comments Temp Salo (test code = Temp Salo) 37.0 [facility] CenterSsecnvhGDLKVNPOK3707-60-30 06:30:00 Test Item Value Reference Range Interpretation Comments HCO3 Salo (test code = HCO3 Salo) 29 22-26 H [facility] CenterUweuvrvHGYNBFWMS0716-74-78 06:30:00 Test Item Value Reference Range Interpretation Comments pCO2 Salo (test code = pCO2 Salo) 62 38-52 H [facility] CenterAgnfhkuGGBMMKMRL3872-04-96 06:30:00 Test Item Value Reference Range Interpretation Comments pH Salo (test code = pH Salo) 7.28 7.28-7.42 N [facility] CenterGocpxszRCGSHDPGN2310-55-59 06:30:00 Test Item Value Reference Range Interpretation Comments pO2 Salo (test code = pO2 Salo) 33 20-49 N [facility] CenterQpnpwyzKSXEDXZFU1566-37-09 06:30:00 Test Item Value Reference Range Interpretation Comments Phosphorus (test code = Phosphorus) 4.6 2.5-4.5 H [facility] CenterZigmdnsLBJBLMSPQ3103-05-87 06:30:00 Test Item Value Reference Range Interpretation Comments Magnesium Lvl (test code = Magnesium 2.0 1.8-2.4 N Lvl) [facility] NortheastWymzslfOQCAMTFEWF8142-88-12 06:30:00 Test Item Value Reference Range Interpretation Comments Max Amp (test code = Max Amp) 65 mm 52-71 N [facility] NortheastAxxnqhvLJZMUQBGLW5874-09-37 06:30:00 Test Item Value Reference Range Interpretation Comments G-value (test code = G-value) 9.1 5.0-11.6 N [facility] NortheastBszvgclOKGEEMRRQQ5023-33-79 06:30:00 Test Item Value Reference Range Interpretation Comments K-time (test code = K-time) 0.9 min 0.6-2.3 N [facility] NortheastRrtjmxeXEBSBYAEFW2244-57-21 06:30:00 Test Item Value Reference Range Interpretation Comments Rapid TEG Sample Type Citrated Whole Blood (test code = Rapid TEG Sample Type) [facility] NortheastZiqqmteHTSNZAPJFC0366-08-77 06:30:00 Test Item Value Reference Range Interpretation Comments ACT (TEG) (test code = ACT (TEG)) 144 s 86-118 H [facility] NortheastWizcvgnOXDQYSHUXI8799-65-92 06:30:00 Test Item Value Reference Range Interpretation Comments Split Point (test code = Split Point) 0.8 min [facility] NortheastNdkkijaMNYBALLMTG6698-78-18 06:30:00 Test Item Value Reference Range Interpretation Comments Angle (test code = Angle) 78 degrees 64-80 N [facility] NortheastZzgbnqqCOUIKGBENV2939-94-03 06:30:00 Test Item Value Reference Range Interpretation Comments R-time (test code = R-time) 1.0 min 0.4-0.7 H [facility] NortheastAjustxpNNYMTFKIER9550-87-46 06:30:00 Test Item Value Reference Range Interpretation Comments Estimated % Lysis (test 3.7 See_Comment N [Au tomated message] The code = Estimated % system wh ich generated Lysis) this result tra nsmitted reference range : <=7.5. The reference r andreia was not used to int erpret this result as normal/abnormal . [facility] BiondVax MCYOKXH6788-51-45 06:30:00 Test Item Value Reference Range Interpretation Comments Antibody Scrn (test Negative (10/06/2013 N code = Antibody Scrn) 00:30:00) [facility] Bion[employer]ax NLXXLBL8589-97-28 06:30:00 Test Item Value Reference Range Interpretation Comments ABO/Rh (test code = ABO/Rh) A POS [facility] WipdgfxPBRAWNGJY0353-10-62 06:30:00 Test Item Value Reference Range Interpretation Comments Lactic Acid Lvl (test code = Lactic 1.3 0.5-2.2 N Acid Lvl) [facility]BondnjjHFPWNRXVU1918-54-68 06:30:00 Test Item Value Reference Range Interpretation Comments BE Salo (test code = 1 See_Comment N [Automa dewayne message] The BE Salo) system which ge nerated this result transmit dewayne reference range : <=2. The reference range was not used to interpr et this result as dallin l/abnormal. [facility] IjjasezFYHUYQOJI6658-51-12 06:30:00 Test Item Value Reference Range Interpretation Comments O2 Sat Salo (test code = O2 Sat Salo) 54.5 40.0-70.0 N [facility] HospitalLutielvNBBDCDZBT0646-97-24 06:30:00 Test Item Value Reference Range Interpretation Comments Temp Salo (test code = Temp Salo) 37.0 [facility] BuzeqnzHKKFIJYHQ9724-87-20 06:30:00 Test Item Value Reference Range Interpretation Comments HCO3 Salo (test code = HCO3 Salo) 29 22-26 H [facility] HospitalFsxldawTWSGAREQU3324-94-57 06:30:00 Test Item Value Reference Range Interpretation Comments pCO2 Salo (test code = pCO2 Salo) 62 38-52 H [facility] HospitalZflvpkmHULRBNCZQ5597-49-46 06:30:00 Test Item Value Reference Range Interpretation Comments pH Salo (test code = pH Salo) 7.28 7.28-7.42 N [facility] HospitalIoeyjqfSUNULTWEJ2053-49-71 06:30:00 Test Item Value Reference Range Interpretation Comments pO2 Salo (test code = pO2 Salo) 33 20-49 N [facility] HospitalOpzdmdtLPXQPXFZC2068-10-27 06:30:00 Test Item Value Reference Range Interpretation Comments Phosphorus (test code = Phosphorus) 4.6 2.5-4.5 H [facility] HospitalRqpqtarRWOBVVWIX7155-68-46 06:30:00 Test Item Value Reference Range Interpretation Comments Magnesium Lvl (test code = Magnesium 2.0 1.8-2.4 N Lvl) [facility] NortheastUwsqpkdFNVVDEBVKW7096-97-47 06:30:00 Test Item Value Reference Range Interpretation Comments Max Amp (test code = Max Amp) 65 mm 52-71 N [facility] NortheastLzjjwsgXHQRPRFDKT5151-88-08 06:30:00 Test Item Value Reference Range Interpretation Comments G-value (test code = G-value) 9.1 5.0-11.6 N [facility] NortheastOyomesqTHKMUUVADK6066-67-90 06:30:00 Test Item Value Reference Range Interpretation Comments K-time (test code = K-time) 0.9 min 0.6-2.3 N [facility] NortheastWkymtqqKDMPVFGKKD9586-03-01 06:30:00 Test Item Value Reference Range Interpretation Comments Rapid TEG Sample Type Citrated Whole Blood (test code = Rapid TEG Sample Type) [facility] NortheastCsshpyqJODDRNKLLZ4181-50-19 06:30:00 Test Item Value Reference Range Interpretation Comments ACT (TEG) (test code = ACT (TEG)) 144 s 86-118 H [facility] NortheastHlrzcvmKLHHCGKHBG1090-99-45 06:30:00 Test Item Value Reference Range Interpretation Comments Split Point (test code = Split Point) 0.8 min [facility] NortheastDixgqsaZNTJCDHUGT9461-40-21 06:30:00 Test Item Value Reference Range Interpretation Comments Angle (test code = Angle) 78 degrees 64-80 N [facility] NortheastDrnsojxBLBRCQVNCW8239-80-98 06:30:00 Test Item Value Reference Range Interpretation Comments R-time (test code = R-time) 1.0 min 0.4-0.7 H [facility] NortheastNwabxqjQNMJMYNTXN3537-33-68 06:30:00 Test Item Value Reference Range Interpretation Comments Estimated % Lysis (test 3.7 See_Comment N [Au tomated message] The code = Estimated % system wh ich generated Lysis) this result tra nsmitted reference range : <=7.5. The reference r andreia was not used to int erpret this result as normal/abnormal . [facility] WVDQUHX0167-76-15 06:30:00 Test Item Value Reference Range Interpretation Comments Antibody Scrn (test Negative (10/06/2013 N code = Antibody Scrn) 00:30:00) [facility] TPRVNJU2357-41-45 06:30:00 Test Item Value Reference Range Interpretation Comments ABO/Rh (test code = ABO/Rh) A POS [facility] CenterWlrlwpmNVYINQNEU9258-11-91 06:30:00 Test Item Value Reference Range Interpretation Comments Lactic Acid Lvl (test code = Lactic 1.3 0.5-2.2 N Acid Lvl) [facility] CenterAjqmcanRQMECJIXB7973-99-22 06:30:00 Test Item Value Reference Range Interpretation Comments BE Salo (test code = 1 See_Comment N [Automa dewayne message] The BE Salo) system which ge nerated this result transmit dewayne reference range : <=2. The reference range was not used to interpr et this result as dallin l/abnormal. [facility] CenterYctxgnxPNAIDAXKV5956-88-87 06:30:00 Test Item Value Reference Range Interpretation Comments O2 Sat Salo (test code = O2 Sat Salo) 54.5 40.0-70.0 N [facility] CenterQdcpptrKHEVGGKTC5154-50-91 06:30:00 Test Item Value Reference Range Interpretation Comments Temp Salo (test code = Temp Salo) 37.0 [facility] CenterJlcgnbmRNOHAOGNN4677-58-97 06:30:00 Test Item Value Reference Range Interpretation Comments HCO3 Salo (test code = HCO3 Salo) 29 22-26 H [facility] CenterJknvnwuDPGACCRGB8847-94-07 06:30:00 Test Item Value Reference Range Interpretation Comments pCO2 Salo (test code = pCO2 Salo) 62 38-52 H [facility] CenterMzrrgquVISGUKJSL4479-43-42 06:30:00 Test Item Value Reference Range Interpretation Comments pH Salo (test code = pH Salo) 7.28 7.28-7.42 N [facility] CenterCfxxwzkFJFSIRSLE2113-28-83 06:30:00 Test Item Value Reference Range Interpretation Comments pO2 Salo (test code = pO2 Salo) 33 20-49 N [facility] CenterUckvpbsNPYWPIYBJ2314-57-00 06:30:00 Test Item Value Reference Range Interpretation Comments Phosphorus (test code = Phosphorus) 4.6 2.5-4.5 H [facility] CenterKrgkjlkZBBCCFXFW3797-73-11 06:30:00 Test Item Value Reference Range Interpretation Comments Magnesium Lvl (test code = Magnesium 2.0 1.8-2.4 N Lvl) [facility] NortheastYorwylpEJKWIYAYED4677-67-09 06:30:00 Test Item Value Reference Range Interpretation Comments Max Amp (test code = Max Amp) 65 mm 52-71 N [facility] NortheastFdbyzbmSGKCGKNEVV1048-19-26 06:30:00 Test Item Value Reference Range Interpretation Comments G-value (test code = G-value) 9.1 5.0-11.6 N [facility] NortheastAigzrjeZPZGSDBZLD9277-13-50 06:30:00 Test Item Value Reference Range Interpretation Comments K-time (test code = K-time) 0.9 min 0.6-2.3 N [facility] NortheastOdknrwlLJJLPHXLYS6147-64-71 06:30:00 Test Item Value Reference Range Interpretation Comments Rapid TEG Sample Type Citrated Whole Blood (test code = Rapid TEG Sample Type) [facility] NortheastKoezkibDKARHCIODH0714-85-95 06:30:00 Test Item Value Reference Range Interpretation Comments ACT (TEG) (test code = ACT (TEG)) 144 s 86-118 H [facility] NortheastNxszxhxDALSQBWCVM7172-84-36 06:30:00 Test Item Value Reference Range Interpretation Comments Split Point (test code = Split Point) 0.8 min [facility] NortheastEebtbxzTKOESDVQMF2504-79-93 06:30:00 Test Item Value Reference Range Interpretation Comments Angle (test code = Angle) 78 degrees 64-80 N [facility] NortheastNemjzypOVGNPPEUJF9255-43-81 06:30:00 Test Item Value Reference Range Interpretation Comments R-time (test code = R-time) 1.0 min 0.4-0.7 H [facility] NortheastWzzeacyAUWJRRZSHT6444-62-56 06:30:00 Test Item Value Reference Range Interpretation Comments Estimated % Lysis (test 3.7 See_Comment N [Au tomated message] The code = Estimated % system wh ich generated Lysis) this result tra nsmitted reference range : <=7.5. The reference r andreia was not used to int erpret this result as normal/abnormal . [facility] BiondVax MSQZIUY3963-31-52 06:30:00 Test Item Value Reference Range Interpretation Comments Antibody Scrn (test Negative (10/06/2013 N code = Antibody Scrn) 00:30:00) [facility] BiondVax CTLYKXI0757-74-52 06:30:00 Test Item Value Reference Range Interpretation Comments ABO/Rh (test code = ABO/Rh) A POS [facility] CenterYjnsqaeKJQKSDTZA6558-04-17 06:30:00 Test Item Value Reference Range Interpretation Comments Lactic Acid Lvl (test code = Lactic 1.3 0.5-2.2 N Acid Lvl) [facility] CenterWzjauztPWCNBDKZX3341-97-41 06:30:00 Test Item Value Reference Range Interpretation Comments BE Salo (test code = 1 See_Comment N [Automa dewayne message] The BE Salo) system which ge nerated this result transmit dewayne reference range : <=2. The reference range was not used to interpr et this result as dallin l/abnormal. [facility] CenterXtnzxulRNQAPLAZX8002-56-16 06:30:00 Test Item Value Reference Range Interpretation Comments O2 Sat Salo (test code = O2 Sat Salo) 54.5 40.0-70.0 N [facility] CenterPsdwrruDJRSZNIBD4454-12-86 06:30:00 Test Item Value Reference Range Interpretation Comments Temp Salo (test code = Temp Salo) 37.0 [facility] CenterQesfenxTEFIHXCDZ6161-03-73 06:30:00 Test Item Value Reference Range Interpretation Comments HCO3 Salo (test code = HCO3 Salo) 29 22-26 H [facility] CenterIeeihdrKJHNIEJNI8843-50-17 06:30:00 Test Item Value Reference Range Interpretation Comments pCO2 Salo (test code = pCO2 Salo) 62 38-52 H [facility] CenterHpmokdvMSHXYRUAK3978-76-14 06:30:00 Test Item Value Reference Range Interpretation Comments pH Salo (test code = pH Salo) 7.28 7.28-7.42 N [facility] CenterRfydckmEIJKTEVYG4502-79-82 06:30:00 Test Item Value Reference Range Interpretation Comments pO2 Salo (test code = pO2 Salo) 33 20-49 N [facility] CenterEgbzmgiBRMPFWKVG6985-22-16 06:30:00 Test Item Value Reference Range Interpretation Comments Phosphorus (test code = Phosphorus) 4.6 2.5-4.5 H [facility] CenterMnozwynKSQGFWYUJ8388-29-60 06:30:00 Test Item Value Reference Range Interpretation Comments Magnesium Lvl (test code = Magnesium 2.0 1.8-2.4 N Lvl) [facility]HudyjnvUOJSAQCQXR5383-94-22 06:30:00 Test Item Value Reference Range Interpretation Comments Max Amp (test code = Max Amp) 65 mm 52-71 N [facility] NortheastZzmepbjJIFQXIWJCK9214-35-07 06:30:00 Test Item Value Reference Range Interpretation Comments G-value (test code = G-value) 9.1 5.0-11.6 N [facility] NortheastClorluoVFROPVJNSB4549-53-91 06:30:00 Test Item Value Reference Range Interpretation Comments K-time (test code = K-time) 0.9 min 0.6-2.3 N [facility] NortheastCuxvydtHXGEDWGYSR1227-51-05 06:30:00 Test Item Value Reference Range Interpretation Comments Rapid TEG Sample Type Citrated Whole Blood (test code = Rapid TEG Sample Type) [facility] HospitalZiehrrwKDJJCKZXLC6341-74-58 06:30:00 Test Item Value Reference Range Interpretation Comments ACT (TEG) (test code = ACT (TEG)) 144 s 86-118 H [facility] NortheastOgfrhxwNWWFTYBABG2957-90-21 06:30:00 Test Item Value Reference Range Interpretation Comments Split Point (test code = Split Point) 0.8 min [facility] NortheastAllwhwyPECKNPSYYM1059-23-02 06:30:00 Test Item Value Reference Range Interpretation Comments Angle (test code = Angle) 78 degrees 64-80 N [facility] NortheastMmbtttaGIDASIUREP3094-12-72 06:30:00 Test Item Value Reference Range Interpretation Comments R-time (test code = R-time) 1.0 min 0.4-0.7 H [facility] NortheastQovylyyHFKIKRKGYP1984-59-14 06:30:00 Test Item Value Reference Range Interpretation Comments Estimated % Lysis (test 3.7 See_Comment N [Au tomated message] The code = Estimated % system wh ich generated Lysis) this result tra nsmitted reference range : <=7.5. The reference r andreia was not used to int erpret this result as normal/abnormal . [facility] [employer] VQFFXBB0755-91-39 06:30:00 Test Item Value Reference Range Interpretation Comments Antibody Scrn (test Negative (10/06/2013 N code = Antibody Scrn) 00:30:00) [facility] [employer] OIYDAID5135-35-74 06:30:00 Test Item Value Reference Range Interpretation Comments ABO/Rh (test code = ABO/Rh) A POS [facility] HospitalCkexbcoXUZOTEFUN0085-11-30 06:30:00 Test Item Value Reference Range Interpretation Comments Lactic Acid Lvl (test code = Lactic 1.3 0.5-2.2 N Acid Lvl) [facility] CenterNpcksabVIGJERJXD1050-04-04 06:30:00 Test Item Value Reference Range Interpretation Comments BE Salo (test code = 1 See_Comment N [Automa dewayne message] The BE Salo) system which ge nerated this result transmit dewayne reference range : <=2. The reference range was not used to interpr et this result as dallin l/abnormal. [facility] CenterTemrejnPRVEASVTO8433-89-22 06:30:00 Test Item Value Reference Range Interpretation Comments O2 Sat Salo (test code = O2 Sat Salo) 54.5 40.0-70.0 N [facility] CenterUyeoevbTNXBCTCQS0134-98-82 06:30:00 Test Item Value Reference Range Interpretation Comments Temp Salo (test code = Temp Salo) 37.0 [facility] CenterOyaalrcREQMIVJIO0127-48-80 06:30:00 Test Item Value Reference Range Interpretation Comments HCO3 Salo (test code = HCO3 Salo) 29 22-26 H [facility] CenterHgbsgdhDHKNSERVK2616-28-78 06:30:00 Test Item Value Reference Range Interpretation Comments pCO2 Salo (test code = pCO2 Salo) 62 38-52 H [facility] CenterZzmntvuVHITBBHEE8310-63-53 06:30:00 Test Item Value Reference Range Interpretation Comments pH Salo (test code = pH Salo) 7.28 7.28-7.42 N [facility] CenterVtjaxawHZCGFYWMY1224-31-61 06:30:00 Test Item Value Reference Range Interpretation Comments pO2 Salo (test code = pO2 Salo) 33 20-49 N [facility] CenterRbbtztxQGLJPBRVQ6534-62-05 06:30:00 Test Item Value Reference Range Interpretation Comments Phosphorus (test code = Phosphorus) 4.6 2.5-4.5 H [facility] CenterIfxqyilOAIQAMVPX2862-99-00 06:30:00 Test Item Value Reference Range Interpretation Comments Magnesium Lvl (test code = Magnesium 2.0 1.8-2.4 N Lvl) [facility] NortheastGmfofxpICOGEQPAFS5729-90-92 06:30:00 Test Item Value Reference Range Interpretation Comments Max Amp (test code = Max Amp) 65 mm 52-71 N [facility] NortheastUofdsxwSTZOIFYYOW6934-88-74 06:30:00 Test Item Value Reference Range Interpretation Comments G-value (test code = G-value) 9.1 5.0-11.6 N [facility] NortheastSsoyvfdGYUSSGQMMW2010-89-81 06:30:00 Test Item Value Reference Range Interpretation Comments K-time (test code = K-time) 0.9 min 0.6-2.3 N [facility] NortheastEdwwahsUOIFFDITQU1548-93-38 06:30:00 Test Item Value Reference Range Interpretation Comments Rapid TEG Sample Type Citrated Whole Blood (test code = Rapid TEG Sample Type) [facility] NortheastEksvjjwJLTUJQZDQJ4145-34-40 06:30:00 Test Item Value Reference Range Interpretation Comments ACT (TEG) (test code = ACT (TEG)) 144 s 86-118 H [facility] NortheastJeuyrqvFKKNQYCUMI9061-43-37 06:30:00 Test Item Value Reference Range Interpretation Comments Split Point (test code = Split Point) 0.8 min [facility] NortheastSfccffvHJWVFIGWLS7751-77-81 06:30:00 Test Item Value Reference Range Interpretation Comments Angle (test code = Angle) 78 degrees 64-80 N [facility] NortheastSyuxjbvPEZCJJTTPZ5784-01-68 06:30:00 Test Item Value Reference Range Interpretation Comments R-time (test code = R-time) 1.0 min 0.4-0.7 H [facility] NortheastEovnozyBLZKZGTCFQ0874-12-21 06:30:00 Test Item Value Reference Range Interpretation Comments Estimated % Lysis (test 3.7 See_Comment N [Au tomated message] The code = Estimated % system wh ich generated Lysis) this result tra nsmitted reference range : <=7.5. The reference r andreia was not used to int erpret this result as normal/abnormal . [facility] [employer] ZRNONSP2785-11-94 06:30:00 Test Item Value Reference Range Interpretation Comments Antibody Scrn (test Negative (10/06/2013 N code = Antibody Scrn) 00:30:00) [facility] [employer] OCUTIKS7518-61-22 06:30:00 Test Item Value Reference Range Interpretation Comments ABO/Rh (test code = ABO/Rh) A POS [facility] HospitalZbqtioeEVMWLPVSS0199-60-34 06:30:00 Test Item Value Reference Range Interpretation Comments Lactic Acid Lvl (test code = Lactic 1.3 0.5-2.2 N Acid Lvl) [facility] HospitalEesuaysNNAOQQYSL3506-59-73 06:30:00 Test Item Value Reference Range Interpretation Comments BE Salo (test code = 1 See_Comment N [Automa dewayne message] The BE Salo) system which ge nerated this result transmit dewayne reference range : <=2. The reference range was not used to interpr et this result as dallin l/abnormal. [facility] CenterCpgxlodDKOTWKFTJ7160-02-57 06:30:00 Test Item Value Reference Range Interpretation Comments O2 Sat Salo (test code = O2 Sat Salo) 54.5 40.0-70.0 N [facility] CenterSphbcosGPZCDOJSO3390-36-03 06:30:00 Test Item Value Reference Range Interpretation Comments Temp Salo (test code = Temp Salo) 37.0 [facility] CenterOtkglenAMKYQTABE7094-00-09 06:30:00 Test Item Value Reference Range Interpretation Comments HCO3 Salo (test code = HCO3 Salo) 29 22-26 H [facility] CenterJcbymaiHYHBWABWI5849-07-50 06:30:00 Test Item Value Reference Range Interpretation Comments pCO2 Salo (test code = pCO2 Salo) 62 38-52 H [facility] CenterFddwivmOLDEEBBTU6276-72-60 06:30:00 Test Item Value Reference Range Interpretation Comments pH Salo (test code = pH Salo) 7.28 7.28-7.42 [facility]QhmzfnxXCSQUCJPQ3178-26-31 06:30:00 Test Item Value Reference Range Interpretation Comments pO2 Salo (test code = pO2 Salo) 33 20-49 N [facility] CenterBtutkilZTRGPUIWR7692-83-27 06:30:00 Test Item Value Reference Range Interpretation Comments Phosphorus (test code = Phosphorus) 4.6 2.5-4.5 [facility] CenterAdwmroaOSRWDHKWD1479-59-05 06:30:00 Test Item Value Reference Range Interpretation Comments Magnesium Lvl (test code = Magnesium 2.0 1.8-2.4 N Lvl) [facility]IezpggpEXZKCBQPMW2712-66-46 06:30:00 Test Item Value Reference Range Interpretation Comments Max Amp (test code = Max Amp) 65 mm 52-71 N [facility] NortheastNzdnosrQYVSGQJQUK3975-10-35 06:30:00 Test Item Value Reference Range Interpretation Comments G-value (test code = G-value) 9.1 5.0-11.6 N [facility] NortheastLnuljtwUGFXQBBTUJ6045-55-72 06:30:00 Test Item Value Reference Range Interpretation Comments K-time (test code = K-time) 0.9 min 0.6-2.3 N [facility] NortheastHzkgzvrHLMJNWOWFA5165-58-24 06:30:00 Test Item Value Reference Range Interpretation Comments Rapid TEG Sample Type Citrated Whole Blood (test code = Rapid TEG Sample Type) [facility]EjbyfjpDGTUFJEEXS7086-03-89 06:30:00 Test Item Value Reference Range Interpretation Comments ACT (TEG) (test code = ACT (TEG)) 144 s 86-118 H [facility] NortheastRfkjrsaEARRBIFTEX0209-83-21 06:30:00 Test Item Value Reference Range Interpretation Comments Split Point (test code = Split Point) 0.8 min [facility] NortheastSisqavpEHBHRKUSMS5311-68-18 06:30:00 Test Item Value Reference Range Interpretation Comments Angle (test code = Angle) 78 degrees 64-80 N [facility] NortheastYfmerrrRMZOQCAHSC5076-39-58 06:30:00 Test Item Value Reference Range Interpretation Comments R-time (test code = R-time) 1.0 min 0.4-0.7 H [facility] NortheastGrgvnfvJIXVQWWUVI4195-71-64 06:30:00 Test Item Value Reference Range Interpretation Comments Estimated % Lysis (test 3.7 See_Comment N [Au tomated message] The code = Estimated % system wh ich generated Lysis) this result tra nsmitted reference range : <=7.5. The reference r andreia was not used to int erpret this result as normal/abnormal . [facility] HLVXBST4726-73-55 06:30:00 Test Item Value Reference Range Interpretation Comments Antibody Scrn (test Negative (10/06/2013 N code = Antibody Scrn) 00:30:00) [facility] PZWBVKM0720-28-67 06:30:00 Test Item Value Reference Range Interpretation Comments ABO/Rh (test code = ABO/Rh) [facility]JQLJJVL[facility]31-66-08 06:30:00 Test Item Value Reference Range Interpretation Comments Lactic Acid Lvl (test code = Lactic 1.3 0.5-2.2 N Acid Lvl) [facility] HospitalVykizbkSCPMTTTFV3447-85-74 06:30:00 Test Item Value Reference Range Interpretation Comments BE Salo (test code = 1 See_Comment N [Automa dewayne message] The BE Salo) system which ge nerated this result transmit dewayne reference range : <=2. The reference range was not used to interpr et this result as dallin l/abnormal. [facility] HospitalOftcorgPTQJCUYGW5092-25-96 06:30:00 Test Item Value Reference Range Interpretation Comments O2 Sat Salo (test code = O2 Sat Salo) 54.5 40.0-70.0 N [facility] CenterGtzodywVKBLXJCJQ4643-18-89 06:30:00 Test Item Value Reference Range Interpretation Comments Temp Salo (test code = Temp Salo) 37.0 [facility] CenterNccwiwvLIFNDZHJB2488-28-04 06:30:00 Test Item Value Reference Range Interpretation Comments HCO3 Salo (test code = HCO3 Salo) 29 22-26 [facility] CenterJpfonunEERLVDLND8232-93-04 06:30:00 Test Item Value Reference Range Interpretation Comments pCO2 Salo (test code = pCO2 Salo) 62 38-52 [facility] CenterLhaondnVFGGQKAII1207-51-85 06:30:00 Test Item Value Reference Range Interpretation Comments pH Salo (test code = pH Salo) 7.28 7.28-7.42 [facility] CenterVllvdjcCDONIOLTG2352-46-63 06:30:00 Test Item Value Reference Range Interpretation Comments pO2 Salo (test code = pO2 Salo) 33 20-49 N [facility] CenterFcuomzmXLBVHWHUU8405-87-53 06:30:00 Test Item Value Reference Range Interpretation Comments Phosphorus (test code = Phosphorus) 4.6 2.5-4.5 [facility] CenterFvxosehWGMYHKAIF0333-15-51 06:30:00 Test Item Value Reference Range Interpretation Comments Magnesium Lvl (test code = Magnesium 2.0 1.8-2.4 N Lvl) [facility]AqddtfrORBKUJKMVZ0444-33-88 06:30:00 Test Item Value Reference Range Interpretation Comments Max Amp (test code = Max Amp) 65 mm 52-71 N [facility] NortheastJebmweoEFGCFWMOPO7341-89-94 06:30:00 Test Item Value Reference Range Interpretation Comments G-value (test code = G-value) 9.1 5.0-11.6 N [facility] NortheastPklucfhBYTHONXUTI9628-12-81 06:30:00 Test Item Value Reference Range Interpretation Comments K-time (test code = K-time) 0.9 min 0.6-2.3 N [facility] NortheastIxxfbesRUSNULKWDU7918-38-24 06:30:00 Test Item Value Reference Range Interpretation Comments Rapid TEG Sample Type Citrated Whole Blood (test code = Rapid TEG Sample Type) [facility] NortheastXhimazcMUOMPEBPOR5394-63-09 06:30:00 Test Item Value Reference Range Interpretation Comments ACT (TEG) (test code = ACT (TEG)) 144 s 86-118 H [facility] HospitalEyqpdwbHOZLZUNGVW9457-20-17 06:30:00 Test Item Value Reference Range Interpretation Comments Split Point (test code = Split Point) 0.8 min [facility] HospitalTbxhhgvUQEPYFMDUY8538-34-30 06:30:00 Test Item Value Reference Range Interpretation Comments Angle (test code = Angle) 78 degrees 64-80 N [facility] HospitalQceqltgJHJJAILQUW0276-85-15 06:30:00 Test Item Value Reference Range Interpretation Comments R-time (test code = R-time) 1.0 min 0.4-0.7 H [facility] HospitalOgxfkplDZQJUNHPOE6092-71-12 06:30:00 Test Item Value Reference Range Interpretation Comments Estimated % Lysis (test 3.7 See_Comment N [Au tomated message] The code = Estimated % system wh ich generated Lysis) this result tra nsmitted reference range : <=7.5. The reference r andreia was not used to int erpret this result as normal/abnormal . [facility] [employer] TEXBJMI7622-22-52 06:30:00 Test Item Value Reference Range Interpretation Comments Antibody Scrn (test Negative (10/06/2013 N code = Antibody Scrn) 00:30:00) [facility] [employer] XSWLEOI8605-77-74 06:30:00 Test Item Value Reference Range Interpretation Comments ABO/Rh (test code = ABO/Rh) A POS [facility] HospitalVuiqtvnUYUDWXGUX7091-81-40 06:30:00 Test Item Value Reference Range Interpretation Comments Lactic Acid Lvl (test code = Lactic 1.3 0.5-2.2 N Acid Lvl) [facility] HospitalOqmvvdpURPRNIXYM6941-13-37 06:30:00 Test Item Value Reference Range Interpretation Comments BE Salo (test code = 1 See_Comment N [Automa dewayne message] The BE Salo) system which ge nerated this result transmit dewayne reference range : <=2. The reference range was not used to interpr et this result as dallin l/abnormal. [facility] HospitalHuojetfGOIFGWMFG6919-02-46 06:30:00 Test Item Value Reference Range Interpretation Comments O2 Sat Salo (test code = O2 Sat Salo) 54.5 40.0-70.0 N [facility] HospitalFotujfcDBYTQTWLH5376-98-99 06:30:00 Test Item Value Reference Range Interpretation Comments Temp Salo (test code = Temp Salo) 37.0 [facility]QpuqrqeSFMYLRUXB6357-40-24 06:30:00 Test Item Value Reference Range Interpretation Comments HCO3 Salo (test code = HCO3 Salo) 29 22-26 [facility] CenterYsikweqLWSRIDYSX1006-39-25 06:30:00 Test Item Value Reference Range Interpretation Comments pCO2 Salo (test code = pCO2 Salo) 62 38-52 [facility] CenterDdxpmhpRLOSFSZFM0186-34-26 06:30:00 Test Item Value Reference Range Interpretation Comments pH Salo (test code = pH Salo) 7.28 7.28-7.42 [facility] CenterElswkoeYYZILXWEM2983-53-90 06:30:00 Test Item Value Reference Range Interpretation Comments pO2 Salo (test code = pO2 Salo) 33 20-49 N [facility] CenterIzhqcbfNSVBUPKDT9013-33-58 06:30:00 Test Item Value Reference Range Interpretation Comments Phosphorus (test code = Phosphorus) 4.6 2.5-4.5 [facility] CenterBifkarrVMOPGEUNN4676-64-94 06:30:00 Test Item Value Reference Range Interpretation Comments Magnesium Lvl (test code = Magnesium 2.0 1.8-2.4 N Lvl) [facility] NortheastAcronjqTIAQGNCOVN8048-53-24 06:30:00 Test Item Value Reference Range Interpretation Comments Max Amp (test code = Max Amp) 65 mm 52-71 N [facility] NortheastExrbzcwQGKIEZXZFT9663-77-58 06:30:00 Test Item Value Reference Range Interpretation Comments G-value (test code = G-value) 9.1 5.0-11.6 N [facility] NortheastGteybrjDHBCLMRDMC6230-41-32 06:30:00 Test Item Value Reference Range Interpretation Comments K-time (test code = K-time) 0.9 min 0.6-2.3 N [facility] NortheastDkqnvzgVWFZPFORCJ8988-60-98 06:30:00 Test Item Value Reference Range Interpretation Comments Rapid TEG Sample Type Citrated Whole Blood (test code = Rapid TEG Sample Type) [facility] NortheastHjiwgteMKFLPHNAGF9588-40-99 06:30:00 Test Item Value Reference Range Interpretation Comments ACT (TEG) (test code = ACT (TEG)) 144 s 86-118 H [facility] NortheastRynvvmvKQPFRCRYHP6781-11-66 06:30:00 Test Item Value Reference Range Interpretation Comments Split Point (test code = Split Point) 0.8 min [facility] HospitalBhumwfcMZELDEPAYH3250-92-41 06:30:00 Test Item Value Reference Range Interpretation Comments Angle (test code = Angle) 78 degrees 64-80 N [facility] HospitalJcymifvPJGKQINETO2772-30-15 06:30:00 Test Item Value Reference Range Interpretation Comments R-time (test code = R-time) 1.0 min 0.4-0.7 H [facility] HospitalKzjwxjyKEBBONOWKP5780-28-56 06:30:00 Test Item Value Reference Range Interpretation Comments Estimated % Lysis (test 3.7 See_Comment N [Au tomated message] The code = Estimated % system wh ich generated Lysis) this result tra nsmitted reference range : <=7.5. The reference r andreia was not used to int erpret this result as normal/abnormal . [facility] [employer] RFQXPAR0351-06-03 06:30:00 Test Item Value Reference Range Interpretation Comments Antibody Scrn (test Negative (10/06/2013 N code = Antibody Scrn) 00:30:00) [facility] [employer] XPUKHEU2242-82-37 06:30:00 Test Item Value Reference Range Interpretation Comments ABO/Rh (test code = ABO/Rh) A POS [facility] DujroxbHFEUMCIBB9423-66-47 06:30:00 Test Item Value Reference Range Interpretation Comments Lactic Acid Lvl (test code = Lactic 1.3 0.5-2.2 N Acid Lvl) [facility] HospitalCeykhyuIVDJCEKTU7715-77-06 06:30:00 Test Item Value Reference Range Interpretation Comments BE Salo (test code = 1 See_Comment N [Automa dewayne message] The BE Salo) system which ge nerated this result transmit dewayne reference range : <=2. The reference range was not used to interpr et this result as dallin l/abnormal. [facility] HospitalEelhucdJLLIJXNMX5348-96-29 06:30:00 Test Item Value Reference Range Interpretation Comments O2 Sat Salo (test code = O2 Sat Salo) 54.5 40.0-70.0 N [facility] HospitalEhosoplZAWPFNEZW3287-92-43 06:30:00 Test Item Value Reference Range Interpretation Comments Temp Salo (test code = Temp Salo) 37.0 [facility] HospitalDlajmrmLTSPYDXGM2932-34-85 06:30:00 Test Item Value Reference Range Interpretation Comments HCO3 Salo (test code = HCO3 Salo) 29 22-26 [facility] CenterGokrwgeDEJGJFNRW2713-11-89 06:30:00 Test Item Value Reference Range Interpretation Comments pCO2 Salo (test code = pCO2 Salo) 62 38-52 [facility] CenterDprgohlJMVAZATOQ5866-02-79 06:30:00 Test Item Value Reference Range Interpretation Comments pH Salo (test code = pH Salo) 7.28 7.28-7.42 [facility] CenterXrlmynaUPVIUGVCX9136-56-51 06:30:00 Test Item Value Reference Range Interpretation Comments pO2 Salo (test code = pO2 Salo) 33 20-49 N [facility] CenterQjnvyfaIMXUGOYCM9985-89-14 06:30:00 Test Item Value Reference Range Interpretation Comments Phosphorus (test code = Phosphorus) 4.6 2.5-4.5 [facility] CenterRsnwdwjAVXHYPPBW5419-47-99 06:30:00 Test Item Value Reference Range Interpretation Comments Magnesium Lvl (test code = Magnesium 2.0 1.8-2.4 N Lvl) [facility] NortheastTyjccaaHTLBAPOEEK4366-90-31 06:30:00 Test Item Value Reference Range Interpretation Comments Max Amp (test code = Max Amp) 65 mm 52-71 N [facility] NortheastCiymsxvJKOQUTNDJT4750-57-67 06:30:00 Test Item Value Reference Range Interpretation Comments G-value (test code = G-value) 9.1 5.0-11.6 N [facility] NortheastMliejxnHLDABVFKBC2062-18-13 06:30:00 Test Item Value Reference Range Interpretation Comments K-time (test code = K-time) 0.9 min 0.6-2.3 N [facility] NortheastSrllfeiBVQAJYNXDF9624-87-57 06:30:00 Test Item Value Reference Range Interpretation Comments Rapid TEG Sample Type Citrated Whole Blood (test code = Rapid TEG Sample Type) [facility] NortheastEsjadpjAUJBRICMLL5558-57-61 06:30:00 Test Item Value Reference Range Interpretation Comments ACT (TEG) (test code = ACT (TEG)) 144 s 86-118 H [facility] NortheastVshxegjTUIJZBJOJP0487-09-44 06:30:00 Test Item Value Reference Range Interpretation Comments Split Point (test code = Split Point) 0.8 min [facility] NortheastAekbuevGZSMKBQUKY4435-49-16 06:30:00 Test Item Value Reference Range Interpretation Comments Angle (test code = Angle) 78 degrees 64-80 N [facility] NortheastSszvnejJCDTVMCFMC6264-09-36 06:30:00 Test Item Value Reference Range Interpretation Comments R-time (test code = R-time) 1.0 min 0.4-0.7 H [facility] HospitalCvhidrmOGPPRHHLAX4357-23-45 06:30:00 Test Item Value Reference Range Interpretation Comments Estimated % Lysis (test 3.7 See_Comment N [Au tomated message] The code = Estimated % system wh ich generated Lysis) this result tra nsmitted reference range : <=7.5. The reference r andreia was not used to int erpret this result as normal/abnormal . [facility] [employer] ZANZDSO7101-42-79 06:30:00 Test Item Value Reference Range Interpretation Comments Antibody Scrn (test Negative (10/06/2013 N code = Antibody Scrn) 00:30:00) [facility] [employer] QJBMQBF0731-69-20 06:30:00 Test Item Value Reference Range Interpretation Comments ABO/Rh (test code = ABO/Rh) A POS [facility] IcxcirgKOOCLLUTA5811-59-44 06:30:00 Test Item Value Reference Range Interpretation Comments Lactic Acid Lvl (test code = Lactic 1.3 0.5-2.2 N Acid Lvl) [facility] HospitalQxrlfqkOLNPNKVWM5519-87-53 06:30:00 Test Item Value Reference Range Interpretation Comments BE Salo (test code = 1 See_Comment N [Automa dewayne message] The BE Salo) system which ge nerated this result transmit dewayne reference range : <=2. The reference range was not used to interpr et this result as dallin l/abnormal. [facility] PzenqpvORDBTAAOX4112-28-54 06:30:00 Test Item Value Reference Range Interpretation Comments O2 Sat Salo (test code = O2 Sat Salo) 54.5 40.0-70.0 N [facility] HospitalVvtcgskDCETTGZRC9514-94-14 06:30:00 Test Item Value Reference Range Interpretation Comments Temp Salo (test code = Temp Salo) 37.0 [facility] HospitalXdpkggdWRYQPAPPX3874-36-03 06:30:00 Test Item Value Reference Range Interpretation Comments HCO3 Salo (test code = HCO3 Salo) 29 22-26 H [facility] HospitalFwniufrFNSJGJIOL7151-98-00 06:30:00 Test Item Value Reference Range Interpretation Comments pCO2 Salo (test code = pCO2 Salo) 62 38-52 [facility] CenterFvfpdzzAFCETAPLQ5697-00-86 06:30:00 Test Item Value Reference Range Interpretation Comments pH Salo (test code = pH Salo) 7.28 7.28-7.42 N [facility] CenterNhtnqroHPQHZGRVT6627-33-06 06:30:00 Test Item Value Reference Range Interpretation Comments pO2 Salo (test code = pO2 Salo) 33 20-49 N [facility] CenterDestchbHCJYXCKFY6452-77-24 06:30:00 Test Item Value Reference Range Interpretation Comments Phosphorus (test code = Phosphorus) 4.6 2.5-4.5 [facility] CenterKeeguodKUHGCHEBQ9883-23-05 06:30:00 Test Item Value Reference Range Interpretation Comments Magnesium Lvl (test code = Magnesium 2.0 1.8-2.4 N Lvl) [facility] NortheastWulnjoqNXFWCEQUSZ8001-62-37 06:30:00 Test Item Value Reference Range Interpretation Comments Max Amp (test code = Max Amp) 65 mm 52-71 N [facility] NortheastDhxtzqoNHAKFWROXQ4046-24-63 06:30:00 Test Item Value Reference Range Interpretation Comments G-value (test code = G-value) 9.1 5.0-11.6 N [facility] NortheastNlnxeijGFFKTAKLRK9950-81-70 06:30:00 Test Item Value Reference Range Interpretation Comments K-time (test code = K-time) 0.9 min 0.6-2.3 N [facility] NortheastBfefdifWBPNFMXPZZ1836-24-77 06:30:00 Test Item Value Reference Range Interpretation Comments Rapid TEG Sample Type Citrated Whole Blood (test code = Rapid TEG Sample Type) [facility] NortheastAprrusrAQFJDNVCZB4808-10-49 06:30:00 Test Item Value Reference Range Interpretation Comments ACT (TEG) (test code = ACT (TEG)) 144 s 86-118 H [facility] NortheastOcqwncoCBJTRUYMHT7261-06-41 06:30:00 Test Item Value Reference Range Interpretation Comments Split Point (test code = Split Point) 0.8 min [facility] NortheastBefxfrlPBHBSRKHHF7504-43-26 06:30:00 Test Item Value Reference Range Interpretation Comments Angle (test code = Angle) 78 degrees 64-80 N [facility] NortheastWlciifkIFVYJCDTOC1116-24-66 06:30:00 Test Item Value Reference Range Interpretation Comments R-time (test code = R-time) 1.0 min 0.4-0.7 H [facility] NortheastDncvxxwOATFKRYPVW6559-46-71 06:30:00 Test Item Value Reference Range Interpretation Comments Estimated % Lysis (test 3.7 See_Comment N [Au tomated message] The code = Estimated % system wh ich generated Lysis) this result tra nsmitted reference range : <=7.5. The reference r andreia was not used to int erpret this result as normal/abnormal . [facility] ZZMPZCP2427-65-95 06:30:00 Test Item Value Reference Range Interpretation Comments Antibody Scrn (test Negative (10/06/2013 N code = Antibody Scrn) 00:30:00) [facility] [employer] BQESRLP7830-43-99 06:30:00 Test Item Value Reference Range Interpretation Comments ABO/Rh (test code = ABO/Rh) A POS [facility] HospitalXhdfdboUMQNJQDDW7200-45-82 06:30:00 Test Item Value Reference Range Interpretation Comments Lactic Acid Lvl (test code = Lactic 1.3 0.5-2.2 N Acid Lvl) [facility] HospitalLncsqezRCHEERFLZ7922-42-67 06:30:00 Test Item Value Reference Range Interpretation Comments BE Salo (test code = 1 See_Comment N [Automa dewayne message] The BE Salo) system which ge nerated this result transmit dewayne reference range : <=2. The reference range was not used to interpr et this result as dallin l/abnormal. [facility] HospitalAarqcjhAXTIOAJRU0767-58-05 06:30:00 Test Item Value Reference Range Interpretation Comments O2 Sat Salo (test code = O2 Sat Salo) 54.5 40.0-70.0 N [facility] HospitalZupxixbNIHFIXENJ0869-78-00 06:30:00 Test Item Value Reference Range Interpretation Comments Temp Salo (test code = Temp Salo) 37.0 [facility] HospitalEbtgegmQANTQFXHD1885-75-63 06:30:00 Test Item Value Reference Range Interpretation Comments HCO3 Salo (test code = HCO3 Salo) 29 22-26 H [facility] HospitalGsllhkjRONPOPHCQ3534-14-17 06:30:00 Test Item Value Reference Range Interpretation Comments pCO2 Salo (test code = pCO2 Salo) 62 38-52 H [facility] HospitalSwfppafGYHMWGELL8949-05-28 06:30:00 Test Item Value Reference Range Interpretation Comments pH Salo (test code = pH Salo) 7.28 7.28-7.42 N [facility] HospitalAsbkpqlYHPIJMREQ6989-18-09 06:30:00 Test Item Value Reference Range Interpretation Comments pO2 Salo (test code = pO2 Salo) 33 20-49 N [facility] CenterTdlduygDSNRFDODW0293-89-67 06:30:00 Test Item Value Reference Range Interpretation Comments Phosphorus (test code = Phosphorus) 4.6 2.5-4.5 [facility] CenterDdxyzozIINXGTTSM5683-99-56 06:30:00 Test Item Value Reference Range Interpretation Comments Magnesium Lvl (test code = Magnesium 2.0 1.8-2.4 N Lvl) [facility] NortheastSsarodnYJYSCDKQJT2712-98-79 06:30:00 Test Item Value Reference Range Interpretation Comments Max Amp (test code = Max Amp) 65 mm 52-71 N [facility] NortheastVwfqvieKWGBWSXDKA9872-27-95 06:30:00 Test Item Value Reference Range Interpretation Comments G-value (test code = G-value) 9.1 5.0-11.6 N [facility] NortheastKeamghiIUIGBUEHPL2590-73-84 06:30:00 Test Item Value Reference Range Interpretation Comments K-time (test code = K-time) 0.9 min 0.6-2.3 N [facility] NortheastLpkkmcvJFARGNHUMY6561-10-55 06:30:00 Test Item Value Reference Range Interpretation Comments Rapid TEG Sample Type Citrated Whole Blood (test code = Rapid TEG Sample Type) [facility] NortheastDlkhsngZVSBIQGGDD5964-52-71 06:30:00 Test Item Value Reference Range Interpretation Comments ACT (TEG) (test code = ACT (TEG)) 144 s 86-118 H [facility] NortheastRqsscroKKCTCLKAOR1576-74-39 06:30:00 Test Item Value Reference Range Interpretation Comments Split Point (test code = Split Point) 0.8 min [facility] NortheastBmaohqiQJROUYKUBW2895-57-43 06:30:00 Test Item Value Reference Range Interpretation Comments Angle (test code = Angle) 78 degrees 64-80 N [facility] NortheastBtjiaccFSDDEBPZVH4342-00-84 06:30:00 Test Item Value Reference Range Interpretation Comments R-time (test code = R-time) 1.0 min 0.4-0.7 H [facility] NortheastDmfkbgqENPVTRIKCP8862-97-23 06:30:00 Test Item Value Reference Range Interpretation Comments Estimated % Lysis (test 3.7 See_Comment N [Au tomated message] The code = Estimated % system wh ich generated Lysis) this result tra nsmitted reference range : <=7.5. The reference r andreia was not used to int erpret this result as normal/abnormal . [facility] [employer] UFAPDSN5028-09-17 06:30:00 Test Item Value Reference Range Interpretation Comments Antibody Scrn (test Negative (10/06/2013 N code = Antibody Scrn) 00:30:00) [facility] [employer] OOBANLK5912-88-83 06:30:00 Test Item Value Reference Range Interpretation Comments ABO/Rh (test code = ABO/Rh) A POS [facility] RnuozngHCSRCNKKC8869-39-87 06:30:00 Test Item Value Reference Range Interpretation Comments Lactic Acid Lvl (test code = Lactic 1.3 0.5-2.2 N Acid Lvl) [facility] HospitalEwenlklGVDYCEDRV8134-88-65 06:30:00 Test Item Value Reference Range Interpretation Comments BE Salo (test code = 1 See_Comment N [Automa dewayne message] The BE Salo) system which ge nerated this result transmit dewayne reference range : <=2. The reference range was not used to interpr et this result as dallin l/abnormal. [facility] NhinltlIMAZVHMXM2594-89-28 06:30:00 Test Item Value Reference Range Interpretation Comments O2 Sat Salo (test code = O2 Sat Salo) 54.5 40.0-70.0 N [facility] HospitalDoyeevyMWSCJQEAC6613-45-01 06:30:00 Test Item Value Reference Range Interpretation Comments Temp Slao (test code = Temp Salo) 37.0 [facility] RcwyfgmDRQWQGVOU8404-15-73 06:30:00 Test Item Value Reference Range Interpretation Comments HCO3 Salo (test code = HCO3 Salo) 29 22-26 H [facility] HospitalIkwmhljEDWMLHZGD3417-02-52 06:30:00 Test Item Value Reference Range Interpretation Comments pCO2 Salo (test code = pCO2 Salo) 62 38-52 H [facility] HospitalMwrypntBAKKHNIFJ4628-12-54 06:30:00 Test Item Value Reference Range Interpretation Comments pH Salo (test code = pH Salo) 7.28 7.28-7.42 N [facility] HospitalKyieixeVUNXDNBOH5756-27-75 06:30:00 Test Item Value Reference Range Interpretation Comments pO2 Salo (test code = pO2 Salo) 33 20-49 N [facility]MxdsjayTNPONFRWL0777-67-52 06:30:00 Test Item Value Reference Range Interpretation Comments Phosphorus (test code = Phosphorus) 4.6 2.5-4.5 [facility]RotuztvWUWXKJSIL3883-25-03 06:30:00 Test Item Value Reference Range Interpretation Comments Magnesium Lvl (test code = Magnesium 2.0 1.8-2.4 N Lvl) [facility]EwykqyqHQLJYMKOSB7689-80-54 06:30:00 Test Item Value Reference Range Interpretation Comments Max Amp (test code = Max Amp) 65 mm 52-71 N [facility] NortheastRqetavuKQGZMXNAVT5232-15-21 06:30:00 Test Item Value Reference Range Interpretation Comments G-value (test code = G-value) 9.1 5.0-11.6 N [facility] NortheastHzrcoaoLDISIGINLT2460-18-65 06:30:00 Test Item Value Reference Range Interpretation Comments K-time (test code = K-time) 0.9 min 0.6-2.3 N [facility] NortheastXqirburICECERJGWG1307-66-16 06:30:00 Test Item Value Reference Range Interpretation Comments Rapid TEG Sample Type Citrated Whole Blood (test code = Rapid TEG Sample Type) [facility]WnwidhqQIQOUHNNIS7861-56-67 06:30:00 Test Item Value Reference Range Interpretation Comments ACT (TEG) (test code = ACT (TEG)) 144 s 86-118 H [facility] NortheastXrsyumcVZHERUBMYC1028-49-12 06:30:00 Test Item Value Reference Range Interpretation Comments Split Point (test code = Split Point) 0.8 min [facility] NortheastHhtoluzVAKDOXBNIJ1993-25-27 06:30:00 Test Item Value Reference Range Interpretation Comments Angle (test code = Angle) 78 degrees 64-80 N [facility] NortheastKdqdnfeLDITXUAWHF0505-13-84 06:30:00 Test Item Value Reference Range Interpretation Comments R-time (test code = R-time) 1.0 min 0.4-0.7 H [facility] NortheastKvatqjxIKGDAGZVOK3355-10-38 06:30:00 Test Item Value Reference Range Interpretation Comments Estimated % Lysis (test 3.7 See_Comment N [Au tomated message] The code = Estimated % system wh ich generated Lysis) this result tra nsmitted reference range : <=7.5. The reference r andreia was not used to int erpret this result as normal/abnormal . [facility] YJDSWMA8257-23-46 06:30:00 Test Item Value Reference Range Interpretation Comments Antibody Scrn (test Negative (10/06/2013 N code = Antibody Scrn) 00:30:00) [facility] NECRADE2139-76-55 06:30:00 Test Item Value Reference Range Interpretation Comments ABO/Rh (test code = ABO/Rh) A POS [facility] CenterRvtkukcJXNOEENKN5627-61-15 06:30:00 Test Item Value Reference Range Interpretation Comments Lactic Acid Lvl (test code = Lactic 1.3 0.5-2.2 N Acid Lvl) [facility] CenterMeiukdyLPBEJMDMX6039-87-65 06:30:00 Test Item Value Reference Range Interpretation Comments BE Salo (test code = 1 See_Comment N [Automa dewayne message] The BE Salo) system which ge nerated this result transmit dewayne reference range : <=2. The reference range was not used to interpr et this result as dallin l/abnormal. [facility] CenterUkaovdyJGRRWKIFA5818-93-20 06:30:00 Test Item Value Reference Range Interpretation Comments O2 Sat Salo (test code = O2 Sat Salo) 54.5 40.0-70.0 N [facility] CenterQloesxoZAMPRHACY3152-56-62 06:30:00 Test Item Value Reference Range Interpretation Comments Temp Salo (test code = Temp Salo) 37.0 [facility] CenterAfwsdscTNOYVQXSG2484-03-56 06:30:00 Test Item Value Reference Range Interpretation Comments HCO3 Salo (test code = HCO3 Salo) 29 22-26 H [facility] CenterCfjkighVDMSLRCWU6338-57-81 06:30:00 Test Item Value Reference Range Interpretation Comments pCO2 Salo (test code = pCO2 Salo) 62 38-52 H [facility] CenterGhhksjwZIJEMRMXV2877-24-22 06:30:00 Test Item Value Reference Range Interpretation Comments pH Salo (test code = pH Salo) 7.28 7.28-7.42 N [facility] CenterUudekfwRCLKZOGZE0656-44-67 06:30:00 Test Item Value Reference Range Interpretation Comments pO2 Salo (test code = pO2 Salo) 33 20-49 N [facility] CenterEuykmunHJGFMCVGJ9708-24-90 06:30:00 Test Item Value Reference Range Interpretation Comments Phosphorus (test code = Phosphorus) 4.6 2.5-4.5 H [facility] CenterTphurbxCUOFXIOBK4360-63-35 06:30:00 Test Item Value Reference Range Interpretation Comments Magnesium Lvl (test code = Magnesium 2.0 1.8-2.4 N Lvl) [facility] NortheastDpyranfYIKLLAQRIF5613-32-88 06:30:00 Test Item Value Reference Range Interpretation Comments Max Amp (test code = Max Amp) 65 mm 52-71 N [facility] NortheastXszevleFGNCIAOPHZ3458-25-43 06:30:00 Test Item Value Reference Range Interpretation Comments G-value (test code = G-value) 9.1 5.0-11.6 N [facility] NortheastLizrvfbSPENCPENIV4561-32-08 06:30:00 Test Item Value Reference Range Interpretation Comments K-time (test code = K-time) 0.9 min 0.6-2.3 N [facility] NortheastFpyxkzyMUZRQCMDAV2896-09-97 06:30:00 Test Item Value Reference Range Interpretation Comments Rapid TEG Sample Type Citrated Whole Blood (test code = Rapid TEG Sample Type) [facility] NortheastKtbbegaNUPRBLJCXE6908-90-54 06:30:00 Test Item Value Reference Range Interpretation Comments ACT (TEG) (test code = ACT (TEG)) 144 s 86-118 H [facility] NortheastNagsadoWXQXCVIZJC5922-96-27 06:30:00 Test Item Value Reference Range Interpretation Comments Split Point (test code = Split Point) 0.8 min [facility] NortheastYhrjbhmMTHABPKFJA1035-71-54 06:30:00 Test Item Value Reference Range Interpretation Comments Angle (test code = Angle) 78 degrees 64-80 N [facility] NortheastNkpfwhhVOVXHOQFVN8697-96-42 06:30:00 Test Item Value Reference Range Interpretation Comments R-time (test code = R-time) 1.0 min 0.4-0.7 H [facility] NortheastPrdvtgjOZJTSXYYCU9278-05-66 06:30:00 Test Item Value Reference Range Interpretation Comments Estimated % Lysis (test 3.7 See_Comment N [Au tomated message] The code = Estimated % system wh ich generated Lysis) this result tra nsmitted reference range : <=7.5. The reference r andreia was not used to int erpret this result as normal/abnormal . [facility] BiondVax SOOJCLZ0113-21-07 06:30:00 Test Item Value Reference Range Interpretation Comments Antibody Scrn (test Negative (10/06/2013 N code = Antibody Scrn) 00:30:00) [facility] [employer] WXSNAXZ4871-03-38 06:30:00 Test Item Value Reference Range Interpretation Comments ABO/Rh (test code = ABO/Rh) A POS [facility] CenterOxholhkEFATRQJRQ6590-67-59 06:30:00 Test Item Value Reference Range Interpretation Comments Lactic Acid Lvl (test code = Lactic 1.3 0.5-2.2 N Acid Lvl) [facility] CenterCqyxbaqYEFJDZYJC7352-46-04 06:30:00 Test Item Value Reference Range Interpretation Comments BE Salo (test code = 1 See_Comment N [Automa dewayne message] The BE Salo) system which ge nerated this result transmit dewayne reference range : <=2. The reference range was not used to interpr et this result as dallin l/abnormal. [facility] CenterPcooqepEQVGYCEOO5706-93-55 06:30:00 Test Item Value Reference Range Interpretation Comments O2 Sat Salo (test code = O2 Sat Salo) 54.5 40.0-70.0 N [facility] CenterUphsotiHPJOMTKCH3353-91-90 06:30:00 Test Item Value Reference Range Interpretation Comments Temp Salo (test code = Temp Salo) 37.0 [facility] CenterLxrqfxxVCZQFNSHG8586-93-61 06:30:00 Test Item Value Reference Range Interpretation Comments HCO3 Salo (test code = HCO3 Salo) 29 22-26 H [facility] CenterArcsyhgJWOPMVNXH1584-51-20 06:30:00 Test Item Value Reference Range Interpretation Comments pCO2 Salo (test code = pCO2 Salo) 62 38-52 H [facility] CenterLiufujpXYVADRUAY2212-86-45 06:30:00 Test Item Value Reference Range Interpretation Comments pH Salo (test code = pH Salo) 7.28 7.28-7.42 N [facility] CenterMocgvagEIOVGGTXU4324-75-92 06:30:00 Test Item Value Reference Range Interpretation Comments pO2 Salo (test code = pO2 Salo) 33 20-49 N [facility] CenterAptryffCJADMQQLY4759-41-81 06:30:00 Test Item Value Reference Range Interpretation Comments Phosphorus (test code = Phosphorus) 4.6 2.5-4.5 H [facility] CenterWerhjdmBODDKKNXK9175-65-06 06:30:00 Test Item Value Reference Range Interpretation Comments Magnesium Lvl (test code = Magnesium 2.0 1.8-2.4 N Lvl) [facility] HospitalUuguremSZVBBOJFRT4933-25-90 06:30:00 Test Item Value Reference Range Interpretation Comments Max Amp (test code = Max Amp) 65 mm 52-71 N [facility] NortheastFblnsymVCWVJGLLLV0845-90-37 06:30:00 Test Item Value Reference Range Interpretation Comments G-value (test code = G-value) 9.1 5.0-11.6 N [facility] NortheastUjpqbxvLORLOFGFJD0289-54-93 06:30:00 Test Item Value Reference Range Interpretation Comments K-time (test code = K-time) 0.9 min 0.6-2.3 N [facility] NortheastKanttfiPIHPAYCBEM4939-16-29 06:30:00 Test Item Value Reference Range Interpretation Comments Rapid TEG Sample Type Citrated Whole Blood (test code = Rapid TEG Sample Type) [facility] HospitalMerfoluUBCBTFDUZK0308-75-86 06:30:00 Test Item Value Reference Range Interpretation Comments ACT (TEG) (test code = ACT (TEG)) 144 s 86-118 H [facility] NortheastZqlytrlIUXQGUOWVB7603-58-79 06:30:00 Test Item Value Reference Range Interpretation Comments Split Point (test code = Split Point) 0.8 min [facility] NortheastZfxckpgIWGNJBJTXK4017-87-53 06:30:00 Test Item Value Reference Range Interpretation Comments Angle (test code = Angle) 78 degrees 64-80 N [facility] NortheastQhlpyobDCFCLJJXDU1037-39-86 06:30:00 Test Item Value Reference Range Interpretation Comments R-time (test code = R-time) 1.0 min 0.4-0.7 H [facility] NortheastGdmylpzZIRLQUCNPV4636-86-24 06:30:00 Test Item Value Reference Range Interpretation Comments Estimated % Lysis (test 3.7 See_Comment N [Au tomated message] The code = Estimated % system wh ich generated Lysis) this result tra nsmitted reference range : <=7.5. The reference r andreia was not used to int erpret this result as normal/abnormal . [facility] [employer] XVUUESF0201-21-99 06:30:00 Test Item Value Reference Range Interpretation Comments Antibody Scrn (test Negative (10/06/2013 N code = Antibody Scrn) 00:30:00) [facility] [employer] DCNYCVK5989-45-95 06:30:00 Test Item Value Reference Range Interpretation Comments ABO/Rh (test code = ABO/Rh) A POS [facility] HospitalTeumeosGNJTYAYNB6294-71-85 06:30:00 Test Item Value Reference Range Interpretation Comments Lactic Acid Lvl (test code = Lactic 1.3 0.5-2.2 N Acid Lvl) [facility] CenterIjuwpplBBNEHRIED2523-97-20 06:30:00 Test Item Value Reference Range Interpretation Comments BE Salo (test code = 1 See_Comment N [Automa dewayne message] The BE Salo) system which ge nerated this result transmit dewayne reference range : <=2. The reference range was not used to interpr et this result as dallin l/abnormal. [facility] CenterKuxluhkMPCZDJYCV8766-35-17 06:30:00 Test Item Value Reference Range Interpretation Comments O2 Sat Salo (test code = O2 Sat Salo) 54.5 40.0-70.0 N [facility] CenterYvngeblMLSUMIZVA2114-98-04 06:30:00 Test Item Value Reference Range Interpretation Comments Temp Salo (test code = Temp Salo) 37.0 [facility] CenterAkjvbiqIEOJLSZHE2004-27-34 06:30:00 Test Item Value Reference Range Interpretation Comments HCO3 Salo (test code = HCO3 Salo) 29 22-26 H [facility] CenterDekwcgbSDWFQISAL4465-18-91 06:30:00 Test Item Value Reference Range Interpretation Comments pCO2 Salo (test code = pCO2 Salo) 62 38-52 H [facility] CenterEsyvlxgGEUIJZHMG8342-47-20 06:30:00 Test Item Value Reference Range Interpretation Comments pH Salo (test code = pH Salo) 7.28 7.28-7.42 N [facility] CenterDcxeizaQFVENFURI5344-67-53 06:30:00 Test Item Value Reference Range Interpretation Comments pO2 Salo (test code = pO2 Salo) 33 20-49 N [facility] CenterUdldaacHCKXBMDLY7876-79-80 06:30:00 Test Item Value Reference Range Interpretation Comments Phosphorus (test code = Phosphorus) 4.6 2.5-4.5 H [facility] CenterXohgvvlKVIZPFMLM9012-67-24 06:30:00 Test Item Value Reference Range Interpretation Comments Magnesium Lvl (test code = Magnesium 2.0 1.8-2.4 N Lvl) [facility]XprwpzwZSBAMOQXGH3789-80-57 06:30:00 Test Item Value Reference Range Interpretation Comments Max Amp (test code = Max Amp) 65 mm 52-71 N [facility] NortheastFsqeyhzLRMMMXRJUS1309-89-17 06:30:00 Test Item Value Reference Range Interpretation Comments G-value (test code = G-value) 9.1 5.0-11.6 N [facility] NortheastPfjrwwdERNDPVFQOX5892-70-59 06:30:00 Test Item Value Reference Range Interpretation Comments K-time (test code = K-time) 0.9 min 0.6-2.3 N [facility] HospitalXgjqnlvXHWVXNNSSE7348-00-41 06:30:00 Test Item Value Reference Range Interpretation Comments Rapid TEG Sample Type Citrated Whole Blood (test code = Rapid TEG Sample Type) [facility] HospitalPbxdpwdMVITBJSSRO3511-12-63 06:30:00 Test Item Value Reference Range Interpretation Comments ACT (TEG) (test code = ACT (TEG)) 144 s 86-118 H [facility] HospitalKlpmkdsQWVIHGYBLL5456-41-15 06:30:00 Test Item Value Reference Range Interpretation Comments Split Point (test code = Split Point) 0.8 min [facility]WirgonaATMJZKUQMW8895-78-46 06:30:00 Test Item Value Reference Range Interpretation Comments Angle (test code = Angle) 78 degrees 64-80 N [facility] HospitalGhsvstpJVXQDZSEJB5678-80-34 06:30:00 Test Item Value Reference Range Interpretation Comments R-time (test code = R-time) 1.0 min 0.4-0.7 H [facility] HospitalZiltnkkCFJFAZLMMJ0597-09-02 06:30:00 Test Item Value Reference Range Interpretation Comments Estimated % Lysis (test 3.7 See_Comment N [Au tomated message] The code = Estimated % system wh ich generated Lysis) this result tra nsmitted reference range : <=7.5. The reference r andreia was not used to int erpret this result as normal/abnormal . [employer] FVGVZGY7548-17-86 06:30:00 Test Item Value Reference Range Interpretation Comments Antibody Scrn (test Negative (10/06/2013 N code = Antibody Scrn) 00:30:00) [facility] [employer] BBKYMNS1556-02-14 06:30:00 Test Item Value Reference Range Interpretation Comments ABO/Rh (test code = ABO/Rh) A POS [facility] HospitalLvxbachZVEKXBNNY1870-79-64 06:30:00 Test Item Value Reference Range Interpretation Comments Lactic Acid Lvl (test code = Lactic 1.3 0.5-2.2 N Acid Lvl) [facility] HospitalImauqxeIUHPMSNVN8963-55-51 06:30:00 Test Item Value Reference Range Interpretation Comments BE Salo (test code = BE Salo) 1 <=2 N [facility] CenterChhgduwUERWDFJAO4513-74-38 06:30:00 Test Item Value Reference Range Interpretation Comments O2 Sat Salo (test code = O2 Sat Salo) 54.5 40.0-70.0 N [facility] CenterOatsyquDAJXWKFDN9774-21-19 06:30:00 Test Item Value Reference Range Interpretation Comments Temp Salo (test code = Temp Salo) 37.0 [facility] CenterBsxaahaYZZIUSJYH3410-77-65 06:30:00 Test Item Value Reference Range Interpretation Comments HCO3 Salo (test code = HCO3 Salo) 29 22-26 H [facility] CenterTnllyndSTTHGENJQ3689-78-88 06:30:00 Test Item Value Reference Range Interpretation Comments pCO2 Salo (test code = pCO2 Salo) 62 38-52 H [facility] CenterVotetpdLCFSAITAR8828-78-98 06:30:00 Test Item Value Reference Range Interpretation Comments pH Salo (test code = pH Salo) 7.28 7.28-7.42 N [facility] CenterHrlhjnrLTHRPJWGM2920-38-96 06:30:00 Test Item Value Reference Range Interpretation Comments pO2 Salo (test code = pO2 Salo) 33 20-49 N [facility] CenterCdfyyczQSMBGLQFS0073-29-36 06:30:00 Test Item Value Reference Range Interpretation Comments Phosphorus (test code = Phosphorus) 4.6 2.5-4.5 H [facility] CenterPgwrinrGYDFVWEIB9969-58-94 06:30:00 Test Item Value Reference Range Interpretation Comments Magnesium Lvl (test code = Magnesium 2.0 1.8-2.4 N Lvl) [facility] NortheastLbgjgolLMQZKAROSZ9727-84-25 06:30:00 Test Item Value Reference Range Interpretation Comments Max Amp (test code = Max Amp) 65 mm 52-71 N [facility] NortheastMbvtgtbDZJQMJYDYE8135-14-93 06:30:00 Test Item Value Reference Range Interpretation Comments G-value (test code = G-value) 9.1 5.0-11.6 N [facility] NortheastWwcwzpfQNQHQWAVMO7342-78-92 06:30:00 Test Item Value Reference Range Interpretation Comments K-time (test code = K-time) 0.9 min 0.6-2.3 N [facility] NortheastFesbjqaTYXEZWSKVE8014-71-62 06:30:00 Test Item Value Reference Range Interpretation Comments Rapid TEG Sample Type Citrated Whole Blood (test code = Rapid TEG Sample Type) [facility] NortheastQrbizduVBQTMXOPOV9270-33-46 06:30:00 Test Item Value Reference Range Interpretation Comments ACT (TEG) (test code = ACT (TEG)) 144 s 86-118 H [facility] NortheastTshsjsxEXCXXGRFEG0519-38-57 06:30:00 Test Item Value Reference Range Interpretation Comments Split Point (test code = Split Point) 0.8 min [facility] NortheastMrjpwxnAYKQUNFCOH4231-62-72 06:30:00 Test Item Value Reference Range Interpretation Comments Angle (test code = Angle) 78 degrees 64-80 N [facility] NortheastCohyswzRNBADCMLPL4091-95-48 06:30:00 Test Item Value Reference Range Interpretation Comments R-time (test code = R-time) 1.0 min 0.4-0.7 H [facility] NortheastHqdklknXBKZBYKKDA6980-64-32 06:30:00 Test Item Value Reference Range Interpretation Comments Estimated % Lysis (test code = 3.7 <=7.5 N Estimated % Lysis) [facility]
[2023-07-23] MEDS ORDERED: FUROSEMIDE 40 MG/4 ML VIAL ONE ×2 (09:16→18:08)
[2023-07-23] MEDS ORDERED: NA CHLORIDE 0.9% 250 ML ONE (09:16)
--- NOTE | 2023-07-23 09:22 | RAD REPORT ---
EXAM DESCRIPTION: [place] Single View07/23/2023 8:40 am CLINICAL HISTORY: shortness of breath COMPARISON: Chest Single View dated 03/10/2022; Abdomen 1 View (KUB) dated 05/13/2019; CHEST SINGLE EW dated 02/02/2013; CHEST SINGLE VIEW dated 01/27/2013 TECHNIQUE: Portable AP view of the chest. FINDINGS: Progressive patchy bilateral mid lung predominant airspace, worse on the left. No pneumot horax or effusion. Stable cardiomegaly. Mediastinal contours are unchanged, with stable positioning o f stimulator device. IMPRESSION: Progressive left more than right patchy airspace opacities. These raise concern for pneu monia. Superimposed edema should also be considered.
[2023-07-23 09:43] LABS: Arterial Blood Carboxyhemoglob 1.5 % (0-1.5); Blood Gas Oxyhemoglobin 90.9 % (94-97); Blood O2 Saturation 93.7 % (92-98.5)
[2023-07-23 09:46] LABS: Bilirubin Total 1.2 mg/dL (0.2-1.0); Potassium 3.4 mEq/L (3.5-5.1); Protein, Total 7.6 g/dL (6.4-8.2)
[2023-07-23 09:52] LABS: Blood Morphology Comment NOT SEEN (NOT SEEN); Platelet Estimate ADEQ
[2023-07-23] MEDS ORDERED: ONDANSETRON 4 MG/2 ML VIAL ONE (10:21)
[2023-07-23 10:24] LABS: Specific Gravity 1.011 (1.005-1.030); Transitional Epithelial <5 /HPF (None Seen); Urine Bacteria 20-50 /HPF (<20); Urine Bilirubin NEGATIVE (Negative); Urine Blood Trace (Negative); Urine Clarity Extremely Turbid (Clear); Urine Color Yellow (Yellow); Urine Glucose NEGATIVE (Negative); Urine Mucus Slight /HPF (None Seen); Urine Protein 1+ (Negative); Urine Urobilinogen Normal (Normal); Urine WBC Clump Rare /HPF (None Seen); Urine pH 5.5 (5.0-7.0)
[2023-07-23] MEDS ORDERED: ONDANSETRON 4 MG/2 ML VIAL IV PRN (12:42)
[2023-07-23] MEDS: INSULIN REGULAR (HUMAN) 100 UNIT/ML SQ SCH ×3 (12:42→21:00)
[2023-07-23] MEDS ORDERED: ALBUTEROL 2.5 MG/3 ML NEB SOL NEB PRN (12:42)
--- NOTE | 2023-07-23 13:13 | P.HP ---
Certification for Inpatient Patient admitted to: Inpatient With expected LOS: >2 Midnights Patient will require the following post-hospital care: None Practitioner: I am a practitioner with admitting privileges, knowledge of patient current condition, hospital course, and medical plan of care. Services: Services provided to patient in accordance with Admission requirements found in Title 42 Section 412.3 of the Code of Federal Regulations Patient History Date of Service: 07/23/23 Reason for admission: CHF exacerbation, pneumonia, sepsis History of Present Illness: 88-year-old female with history of atrial fibrillation on chronic anticoagulation, chronic diastolic congestive heart failure, COPD on home oxygen, elh-dkohtkq-uuzgfcsml diabetes, hypertension presents to the emergency department chief complaint of shortness of breath, fevers overnight. She was at home with her daughter, her daughter reports that she been feeling unwell for the past couple days, was recently diagnosed with urinary tract infection and has been taking cefdinir at home. She wears oxygen per nasal cannula at homebut was hypoxic despite the use of her oxygen. She was evaluated in the emergency department chest x-ray showed progressive left more than right patchy airspace opacities. These raise concern for pneumonia. Superimposed edema should also be considered. Her labs were significant for white blood cell 14.7 sodium 134 potassium 3.4 creatinine 1.12 GFR 47 glucose 148 lactic acid 4.7 troponin 403.8 high-sensitivity, BNP 29,615 procalcitonin 3.47. In the emergency department she was started on BiPAP, given antibiotics including Rocephin/Zithromax and IV Lasix for suspected volume overload. ED physician discussed case with cardiology. She will be admitted for CHF exacerbation, severe sepsis, pneumonia. Allergies morphine Allergy (Verified 02/02/13 06:33) Nausea/Vomiting Home Medications: Acetaminophen [Tylenol Extra Strength*] 1,000 mg PO DAILY 02/02/13 Ascorbic Acid [Vitamin C*] 500 mg PO DAILY 02/02/13 Aspirin Enteric Coated [ASPIRIN 81 MG EC*] 81 mg PO DAILY WITH BREAKFAST Calcium Carbonate/Vitamin D3 [Calcium 600-Vit D3 400 Tablet] 1 each PO BID 02/02/13 Clotrim/Betameth Cream [Lotrisone Cream*] 15 gm TP DAILYPRN PRN 02/02/13 Cranberry Fruit Concentrate [Cranberry] 3,200 mg PO DAILY 02/02/13 Cyanocobalamin [Vitamin B-12*] 1,000 mcg PO DAILY WITH BREAKFAST 02/02/13 Garlic Capsule 1 cap PO DAILY 02/02/13 Glipizide [Glipizide Xl] 5 mg PO BID 02/02/13 Liothyronine [Cytomel*] 5 mcg PO DAILY 02/02/13 Loteprednol Etabonate [Alrex] 1 drop OD DAILY 02/02/13 Montelukast [Singulair*] 10 mg PO BEDTIME PRN 02/02/13 Multivit-Min/Iron Fum/Folic AC [Multivitamin-Minerals Tablet] 1 tab PO DAILY 02/02/13 Liberty-3 Fatty Acids [Fish Oil] 1,000 mg PO DAILY 02/02/13 Pantoprazole [Protonix Tab*] 40 mg PO DAILY 02/02/13 Potassium 99 mg PO QOD QID 02/02/13 Ranitidine HCl [Zantac 75] 75 mg PO DAILY 02/02/13 Albuterol [Proventil] 2 puff IH QIDP PRN #1 aerosol 02/12/13 Fluticasone/Salmeterol [Advair 100/50 Diskus*] 1 puff IH BID #3 disk 02/12/13 Furosemide [Lasix*] 40 mg PO DAILY #90 tab 02/12/13 Levothyroxine Sodium [Levoxyl] 125 mcg PO DAILY #90 tablet 02/12/13 Isosorbide Dinit [Isordil*] 20 mg PO BID 03/11/22 Montelukast Sodium [Singulair] 10 mg PO DAILY 03/11/22 Warfarin Sodium [Coumadin*] 3 mg PO M,W,F 03/11/22 Warfarin Sodium [Coumadin*] 4 mg PO T,TH,S 03/11/22 Zinc Gluconate [Zinc Gluconate*] 25 mg PO DAILY 03/11/22 Amlodipine [Norvasc*] 5 mg PO DAILY #30 tab 03/12/22 - Past Medical/Surgical History Diabetic: Yes -: CHF diastolic -: DM2 -: A. fib chronic anticoagulation -: Hypertension -: COPD on home oxygen at night -: Defribrillator -: IBS -: Breast Cancer -: [place] -: Cholecystectomy -: Appendectomy -: Bilateral knee surgeries -: Defibrillator -: Lumpectomy Psychosocial/ Personal History: Patient lives at home with daughter, is . - Family History Mother -: Heart disease - Social History Smoking Status: Never smoker Alcohol use: Yes CD- Drugs: No Caffeine use: Yes Place of Residence: Home Review of Systems 10-point ROS is otherwise unremarkable General: Fever, Chills, Weakness, Malaise Respiratory: Shortness of Breath Physical Examination - Vital Signs Pulse: 68 Pulse Ox (%): 93 - Physical Exam General: Alert, In no apparent distress, Oriented x3 HEENT: Atraumatic, PERRLA, Sclerae nonicteric Neck: Supple Respiratory: Diminished, Crackles/rales Cardiovascular: Irregular heart rate/rhythm Gastrointestinal: Normal bowel sounds, No tenderness Musculoskeletal: No tenderness Integumentary: No rashes Neurological: Normal speech, Normal strength at 5/5 x4 extr, Normal affect - Studies Laboratory Data (last 24 hrs) 07/23/23 07/23/23 07/23/23 09:10 09:10 07:46 WBC Hgb Hct Plt Count PT 15.6 H INR 1.42 APTT 36.8 Sodium 134 L Potassium 3.4 L BUN 36 H Creatinine 1.12 H Glucose 148 H Magnesium Total Bilirubin 1.2 H AST 25 ALT 15 Alkaline Phosphatase 79 07/23/23 07/23/23 07:46 07:46 WBC 14.70 H Hgb 13.1 Hct 39.2 Plt Count 220 PT INR APTT Sodium 133 L Potassium 3.4 L BUN 37 H Creatinine 1.09 H Glucose 158 H Magnesium 1.5 L Total Bilirubin 1.1 H AST 23 ALT 15 Alkaline Phosphatase 78 Microbiology Data (last 24 hrs): 07/23/23 07:45 Nasopharnyx Influenza Type A Antigen Screen - Final 07/23/23 07:45 Nasopharnyx Influenza Type B Antigen Screen - Final Assessment and Plan - Plan Assessment: Severe sepsis secondary to bilateral pneumonia Acute on chronic diastolic congestive heart failure NSTEMI Acute on chronic hypoxic respiratory failure secondary to CHF/pneumonia Atrial fibrillation on chronic anticoagulation History of COPD on home O2 Diabetes mellitus type [id number]-rwdmapfei Hypertension Plan: Severe sepsis secondary to bilateral pneumonia Blood cultures obtained in ED Lactate less than 2, new BiPAP requirement being treated for severe sepsis Continue antibiotics, wean off of oxygen As needed BiPAP Acute on chronic diastolic congestive heart failure NSTEMI Continue IV diuresis, other home medications Echocardiogram, Cardiology consult Therapeutic Lovenox Trend troponins, monitor on telemetry Acute on chronic hypoxic respiratory failure secondary to CHF/pneumonia Pulmonology consult As needed BiPAP Atrial fibrillation on chronic anticoagulation Continue carvedilol, therapy Lovenox given NSTEMI Rate controlled History of COPD on home O2 Continue supplemental oxygen as needed Diabetes mellitus type [id number]-[id number]-ttplrdmll ACHS Accu-Chek, sliding scale insulin Hypertension Home medications continued DVT PPX: Therapeutic Lovenox Code status: DNR-OK with intubation Discharge Plan: Home Plan to discharge in: Greater than 2 days - Advance Directives Does patient have a Living Will: No Does patient have a Durable POA for Healthcare: Yes - Code Status/Comfort Care Code Status Assessed: Yes (DNR-okay with intubation) Critical Care: No Time Spent Managing Pts Care (In Minutes): 70
[2023-07-23] MEDS: ENOXAPARIN 80 MG/0.8 ML SQ SCH (14:00)
[2023-07-23] MEDS: FUROSEMIDE 40 MG/4 ML VIAL IV SCH (17:00)
[2023-07-23] MEDS ORDERED: ENOXAPARIN 80 MG/0.8 ML SQ ONE (18:09)
[2023-07-23] MEDS: ATORVASTATIN 40 MG TAB PO SCH (21:00)
[2023-07-23] MEDS: ISOSORBIDE DINIT 20 MG TAB PO SCH (21:00)
[2023-07-23] MEDS: carvediloL 6.25 MG TAB PO SCH (21:00)
[2023-07-23] MEDS: DOXYCYCLINE 100 MG in NA CHLORIDE 0.9% 100 ML IVPB SCH (22:36)
[2023-07-24 02:13] LABS: Absolute Lymphocytes (CBC) 1.1 K/uL (0.7-4.9); Hematocrit 37.8 % (36.0-45.0); Lymphocytes % 10.3 % (15.3-44.8); MCV 90.2 fL (80-100); Platelets 193 thou/uL (152-406); RBC Red Blood Cell Count 4.19 M/uL (3.86-4.86)
[2023-07-24 02:44] LABS: Magnesium 1.8 mg/dL (1.6-2.4); Potassium 3.3 mEq/L (3.5-5.1); Thyroid Stimulating Hormone 0.833 uIU/mL (0.358-3.740)
[2023-07-24] MEDS: LEVOTHYROXINE SOD 0.112 MG TAB PO SCH (06:35)
[2023-07-24] MEDS ORDERED: POTASSIUM 25 MEQ EFFERV TAB PO ONE (07:17)
[2023-07-24] MEDS: INSULIN REGULAR (HUMAN) 100 UNIT/ML SQ SCH ×4 (07:30→21:00)
[2023-07-24] MEDS ORDERED: CEFTRIAXONE 1,000 MG in NA CHLORIDE 0.9% 50 ML IVPB SCH (09:00)
[2023-07-24] MEDS: ISOSORBIDE DINIT 20 MG TAB PO SCH (09:00)
[2023-07-24] MEDS: ENOXAPARIN 80 MG/0.8 ML SQ SCH (09:00)
[2023-07-24] MEDS: carvediloL 6.25 MG TAB PO SCH (09:13)
[2023-07-24] MEDS: FUROSEMIDE 40 MG/4 ML VIAL IV SCH ×2 (09:14→16:38)
[2023-07-24] MEDS: ASPIRIN EC 81 MG TAB PO SCH (09:14)
[2023-07-24] MEDS ORDERED: ACETAMINOPHEN 325 MG TABLET PO PRN (09:43)
--- NOTE | 2023-07-24 09:46 | P.PN ---
Date of Service: 07/24/23 Subjective: Feeling much better today, off of BiPAP, breathing improved Still some shortness of breath, dysuria ROS: 10 point ROS as noted above, otherwise negative Physical exam GEN: Alert, oriented, NAD HEENT: Normal conjunctiva, sclera anicteric CV: Regular rate and rhythm, no edema Pulm: Nonlabored respirations on room air, diminished bilaterally ABD: Soft, nontender, nondistended MSK: No joint tenderness Integumentary: No rashes Neuro: Normal speech, normal affect Vitals reviewed Problem List Severe sepsis secondary to bilateral pneumonia, UTI Acute on chronic diastolic congestive heart failure NSTEMI Acute on chronic hypoxic respiratory failure secondary to CHF/pneumonia Atrial fibrillation on chronic anticoagulation History of COPD on home O2 Diabetes mellitus type [id number]-vezztqm-mgowgnwky Hypertension Plan: Severe sepsis secondary to bilateral pneumonia, UTI White blood cell count downtrending Blood cultures obtained in ED Lactate less than 2, new BiPAP requirement being treated for severe sepsis Continue antibiotics, wean off of oxygen As needed BiPAP Acute on chronic diastolic congestive heart failure NSTEMI Continue IV diuresis, other home medications Echocardiogram, Cardiology consult Troponin peaked at 731.2 now decreasing Therapeutic Lovenox Trend troponins, monitor on telemetry Acute on chronic hypoxic respiratory failure secondary to CHF/pneumonia Pulmonology consult As needed BiPAP Currently off of BiPAP on nasal cannula oxygen Atrial fibrillation on chronic anticoagulation Continue carvedilol, therapy Lovenox given NSTEMI Rate controlled History of COPD on home O2 Continue supplemental oxygen as needed As needed nebulizer treatments Diabetes mellitus type [id number]-aipiqvdqr ACHS Accu-Chek, sliding scale insulin Hypertension Home medications continued DVT PPX: Therapeutic Lovenox Code status: DNR-OK with intubation Discharge Plan: Home in 48 to 72 hours Time Spent Managing Pts Care (In Minutes): 35
[2023-07-24] MEDS: DOXYCYCLINE 100 MG in NA CHLORIDE 0.9% 100 ML IVPB SCH ×2 (10:03→21:12)
[2023-07-24] MEDS ORDERED: NA CHLORIDE 0.9% 250 ML ONE (11:39)
[2023-07-24] MEDS ORDERED: NA CHLORIDE 0.9% 250 ML IV ONE ×3 (11:50→12:30)
--- NOTE | 2023-07-24 18:59 | RAD REPORT ---
EXAM DESCRIPTION: CT - Thorax Wo Con - 07/24/2023 2:49 pm CLINICAL HISTORY: pulmonary fibrosis COMPARISON: CTANGIO CHEST FOR PE dated 02/02/2013; Chest Single View dated 07/23/2023 TECHNIQUE: Axial thin cut images of the chest were obtained without IV contrast. Multiplanar reforma ts were generated and reviewed. All CT scans are performed using dose optimization technique as appropriate and may include automated exposure control or mA/KV adjustment according to patient size. FINDINGS: Central predominant interstitial thickening and mild geographic ground-glass opacities. Co nsolidative opacities with air bronchogram involving the posterior right upper lobe and bibasilar low er lobes. Small left and moderate right pleural effusion. No pneumothorax. Mildly prominent mediastinal lymph nodes, largest is pretracheal measuring 1.3 cm in short axis. No h ilar masses or lymphadenopathy seen within limits of noncontrast CT. No significant aortic findings. Mildly prominent pulmonary artery caliber. Assessment is limited in the absence of IV contrast. Mild cardiomegaly. No chest wall mass suspicious mass. Enlarged left axillary nodes adjacent largest measuring 2.0 x 1.3 cm. Evaluation of the solid abdominal structures reveals no suspicious findings. Inferior left breast soft density with adjacent calcifications, not well evaluated. Left chest wall n erve stimulator place. Left humeral head deformity with joint effusion. IMPRESSION: Interstitial prominence, bilateral effusions, and dependent consolidative opacities, andrews se concern for pulmonary edema. Superimposed pneumonia cannot be entirely excluded. Mild cardiomegaly Left breast inferior soft tissue density with adjacent calcification. Left axillary and mediastinal l ymph nodes. Findings may be reactive. Correlate with history of left breast malignancy, and recent tr eatment if available. If there is clinical concern for developing malignancy, the findings can be julita luated diagnostic mammogram and ultrasound.
[2023-07-24] MEDS: CEFEPIME 1 GM in NA CHLORIDE 0.9% 100 ML IV SCH (21:13)
[2023-07-24] MEDS: HYDROCODONE/APAP 5/325 MG TAB PO PRN (21:13)
[2023-07-24] MEDS: ATORVASTATIN 40 MG TAB PO SCH (21:13)
[2023-07-25] MEDS: HYDROCODONE/APAP 5/325 MG TAB PO PRN ×4 (02:15→22:37)
[2023-07-25 03:13] LABS: Absolute Lymphocytes (CBC) 1.6 K/uL (0.7-4.9); Hematocrit 34.3 % (36.0-45.0); Lymphocytes % 24.7 % (15.3-44.8); MCV 90.2 fL (80-100); MPV 6.7 fL (7.6-11.3); Platelets 189 thou/uL (152-406); RBC Red Blood Cell Count 3.81 M/uL (3.86-4.86)
[2023-07-25 03:32] LABS: Magnesium 1.8 mg/dL (1.6-2.4); Potassium 4.1 mEq/L (3.5-5.1)
[2023-07-25] MEDS ORDERED: MAGNESIUM SULFATE 1 gm IVPB 1 GM/100 ML BAG IV ONE (06:00)
[2023-07-25] MEDS: LEVOTHYROXINE SOD 0.112 MG TAB PO SCH (06:05)
[2023-07-25] MEDS: INSULIN REGULAR (HUMAN) 100 UNIT/ML SQ SCH ×4 (07:30→21:00)
--- NOTE | 2023-07-25 08:35 | P.CNS ---
Date of Consult: 07/24/23 Reason for Consult: Shortness of breath Chief Complaint: Possible pneumonia History of Present Illness: Patient is 88 years of age multiple medical problems including congestive heart failure COPD. From the emergency room complaining of shortness of breath and fever doing so well for the past couple of days was also diagnosed with urinary tract infection patient is using oxygen at home appears to be short of breath at the bedside today was a very abnormal possibility of pneumonia/patient is also very kyphotic Allergies morphine Allergy (Verified 02/02/13 06:33) Nausea/Vomiting Home Medications: Aspirin Enteric Coated [ASPIRIN 81 MG EC*] 81 mg PO DAILY 02/02/13 Cranberry Fruit Concentrate [Cranberry] 3,200 mg PO DAILY 02/02/13 Cyanocobalamin [Vitamin B-12*] 1,000 mcg PO DAILY WITH BREAKFAST 02/02/13 Glipizide [Glipizide Xl] 5 mg PO BID 02/02/13 Montelukast [Singulair*] 10 mg PO BEDTIME PRN 02/02/13 Multivit-Min/Iron Fum/Folic AC [Multivitamin-Minerals Tablet] 1 tab PO DAILY 02/02/13 Furosemide [Lasix*] 40 mg PO DAILY #90 tab 02/12/13 Levothyroxine Sodium [Levoxyl] 125 mcg PO DAILY #90 tablet 02/12/13 Isosorbide Dinit [Isordil*] 20 mg PO BID 03/11/22 Zinc Gluconate [Zinc Gluconate*] 25 mg PO DAILY 03/11/22 Amlodipine [Norvasc*] 5 mg PO DAILY #30 tab 03/12/22 Budesonide [Pulmicort Flexhaler] 1 puff PO BID 07/24/23 Cholecalciferol (Vitamin D3) [Vitamin D 5,000 IU Cap*] 1 tab PO DAILY 07/24/23 Potassium Gluconate [Potassium] 595 mg PO BID 07/24/23 carvediloL [Carvedilol] 1 tab PO DAILY 07/24/23 - Past Medical/Surgical History Diabetic: Yes -: CHF diastolic -: DM2 -: A. fib chronic anticoagulation -: Hypertension -: COPD on home oxygen at night -: Defribrillator -: IBS -: Breast Cancer -: [place] -: Cholecystectomy -: Appendectomy -: Bilateral knee surgeries -: Defibrillator -: Lumpectomy Psychosocial/ Personal History: Patient lives at home with daughter, is . - Family History Mother Medical History: Heart disease - Social History Smoking Status: Unknown if ever smoked Alcohol use: Yes CD- Drugs: No Caffeine use: Yes Place of Residence: Home Review of Systems 10-point ROS is otherwise unremarkable General: Weakness Respiratory: Cough, Shortness of Breath Physical Examination Temp Pulse Resp BP Pulse Ox 97.4 F 60 18 117/58 L 92 07/25/23 04:00 07/25/23 04:00 07/25/23 04:00 07/25/23 04:00 07/25/23 04:00 General: Alert, Oriented x3, Moderate distress Respiratory: Clear to auscultation bilaterally, Crackles/rales (Crackles at the left side) Cardiovascular: No edema, Regular rate/rhythm Gastrointestinal: Normal bowel sounds, Non-distended - Problems (1) Pneumonia Current Visit: Yes Status: Acute Plan: Patient is 88 years of age admitted with worsening dyspnea x-ray shows bilateral pulmonary infiltrate possibly pneumonia White count is mildly elevated patient is very kyphotic baseline dyspnea patient also has a non-STEMI troponin is elevated mild hypokalemia oxygenation satisfactory change her over to cefepime continue with doxycycline echo pending
[2023-07-25] MEDS: CEFEPIME 1 GM in NA CHLORIDE 0.9% 100 ML IV SCH ×2 (08:46→21:02)
[2023-07-25] MEDS: ASPIRIN EC 81 MG TAB PO SCH (08:47)
[2023-07-25] MEDS: DOXYCYCLINE 100 MG in NA CHLORIDE 0.9% 100 ML IVPB SCH ×2 (08:47→21:02)
[2023-07-25] MEDS: FUROSEMIDE 40 MG/4 ML VIAL IV SCH ×2 (08:48→09:00)
[2023-07-25] MEDS: ENOXAPARIN 80 MG/0.8 ML SQ SCH (08:49)
--- NOTE | 2023-07-25 09:13 | P.PN ---
Date of Service: 07/25/23 Subjective: Doing okay today, still with mild shortness of breath, denies other complaints ROS: 10 point ROS as noted above, otherwise negative Physical exam GEN: Alert, oriented, NAD HEENT: Normal conjunctiva, sclera anicteric CV: Regular rate and rhythm, no edema Pulm: Nonlabored respirations on room air, diminished bilaterally ABD: Soft, nontender, nondistended MSK: No joint tenderness Integumentary: No rashes Neuro: Normal speech, normal affect Vitals reviewed Problem List Severe sepsis secondary to bilateral pneumonia, UTI Acute on chronic diastolic congestive heart failure NSTEMI Acute on chronic hypoxic respiratory failure secondary to CHF/pneumonia Atrial fibrillation on chronic anticoagulation History of COPD on home O2 Diabetes mellitus type [id number]-[id number]-teytqeggn Hypertension Plan: Severe sepsis secondary to bilateral pneumonia, UTI White blood cell count downtrending Blood cultures NGTD Urine culture mixed [place] Lactate less than 2, new BiPAP requirement being treated for severe sepsis Continue antibiotics, on cefepime and doxy As needed BiPAP Acute on chronic diastolic congestive heart failure NSTEMI Continue IV diuresis, other home medications Echocardiogram, Cardiology consult Troponin peaked at 731.2 now decreasing Therapeutic Lovenox Trend troponins, monitor on telemetry Acute on chronic hypoxic respiratory failure secondary to CHF/pneumonia Improving, still mildly short of breath, tachypneic Pulmonology consult As needed BiPAP Currently off of BiPAP on nasal cannula oxygen Atrial fibrillation on chronic anticoagulation Hold carvedilol for today given low blood pressures yesterday after medications Therapeutic Lovenox given NSTEMI Rate controlled History of COPD on home O2 Continue supplemental oxygen as needed As needed nebulizer treatments Diabetes mellitus type 2hju-ykncuou-bbsisligj ACHS Accu-Chek, sliding scale insulin Hypertension Home medications continued DVT PPX: Therapeutic Lovenox Code status: DNR-OK with intubation Discharge Plan: Home in 48 to 72 hours Time Spent Managing Pts Care (In Minutes): 35
[2023-07-25] MEDS: ATORVASTATIN 40 MG TAB PO SCH (21:01)
[2023-07-26] MEDS: HYDROCODONE/APAP 5/325 MG TAB PO PRN ×2 (04:57→12:49)
[2023-07-26 06:01] LABS: Absolute Lymphocytes (CBC) 1.5 K/uL (0.7-4.9); Hematocrit 37.2 % (36.0-45.0); Lymphocytes % 26.3 % (15.3-44.8); MCV 90.7 fL (80-100); MPV 6.5 fL (7.6-11.3); Platelets 213 thou/uL (152-406); RBC Red Blood Cell Count 4.11 M/uL (3.86-4.86)
[2023-07-26 06:08] LABS: Magnesium 1.9 mg/dL (1.6-2.4); Potassium 4.1 mEq/L (3.5-5.1)
[2023-07-26] MEDS: LEVOTHYROXINE SOD 0.112 MG TAB PO SCH (06:35)
[2023-07-26] MEDS: INSULIN REGULAR (HUMAN) 100 UNIT/ML SQ SCH ×4 (07:30→21:00)
[2023-07-26] MEDS: ASPIRIN EC 81 MG TAB PO SCH (09:00)
--- NOTE | 2023-07-26 09:24 | P.PN ---
Date of Service: 07/26/23 Subjective: Doing okay today, shortness of breath improving Talked about PT at home ROS: 10 point ROS as noted above, otherwise negative Physical exam GEN: Alert, oriented, NAD HEENT: Normal conjunctiva, sclera anicteric CV: Regular rate and rhythm, no edema Pulm: Nonlabored respirations on room air, diminished bilaterally ABD: Soft, nontender, nondistended MSK: No joint tenderness Integumentary: No rashes Neuro: Normal speech, normal affect Vitals reviewed Problem List Severe sepsis secondary to bilateral pneumonia, UTI Acute on chronic diastolic congestive heart failure NSTEMI Acute on chronic hypoxic respiratory failure secondary to CHF/pneumonia Atrial fibrillation on chronic anticoagulation History of COPD on home O2 Diabetes mellitus type 4thd-xibgyly-dhoxcxkag Hypertension Plan: Severe sepsis secondary to bilateral pneumonia, UTI White blood cell count downtrending Blood cultures NGTD Urine culture mixed [place] Continue antibiotics, on cefepime and doxy Possible DC friday Acute on chronic diastolic congestive heart failure NSTEMI Continue IV diuresis, other home medications Await results from echocardiogram, Cardiology consult Troponin peaked at 731.2 now decreasing Therapeutic Lovenox monitor on telemetry Acute on chronic hypoxic respiratory failure secondary to CHF/pneumonia Improving, still mildly short of breath Pulmonology consult Continue nasal cannula , has at home Atrial fibrillation on chronic anticoagulation Hold carvedilol for today given low blood pressures yesterday after medications Therapeutic Lovenox given NSTEMI Rate controlled History of COPD on home O2 Continue supplemental oxygen as needed As needed nebulizer treatments Diabetes mellitus type 0foy-dmwzlov-prstggadq ACHS Accu-Chek, sliding scale insulin Hypertension Home medications continued DVT PPX: Therapeutic Lovenox Code status: DNR-OK with intubation Discharge Plan: Home in 48 to 72 hours Time Spent Managing Pts Care (In Minutes): 35
[2023-07-26] MEDS: DOXYCYCLINE 100 MG in NA CHLORIDE 0.9% 100 ML IVPB SCH ×2 (10:46→21:26)
[2023-07-26] MEDS: CEFEPIME 1 GM in NA CHLORIDE 0.9% 100 ML IV SCH ×2 (10:46→21:25)
[2023-07-26] MEDS: FUROSEMIDE 40 MG/4 ML VIAL IV SCH (10:47)
[2023-07-26] MEDS: ENOXAPARIN 80 MG/0.8 ML SQ SCH (10:47)
[2023-07-26 12:27] VITALS: BMI 29.0
[2023-07-26] MEDS: LIDOCAINE 4% PATCH TOP SCH (13:50)
--- NOTE | 2023-07-26 14:23 | EKG ---
Test Date: 2023-07-23 Test Time: 08:47:01 Clerical Aide Teacher: HB MEASUREMENT RESULTS: Intervals: Rate: 69 UT: QRSD: 174 QT: 554 QTc: 593 [place]: P: 63 UT: QRS: -78 T: 38 INTERPRETIVE STATEMENTS: Sinus rhythm with frequent premature ventricular complexes Right bundle branch block Left anterior fascicular block Bifascicular block Septal infarct, age undetermined Abnormal ECG Compared to ECG 03/10/2022 20:58:09 Left anterior fascicular block now present Bifascicular block now present Myocardial infarct finding now present First degree AV block no longer present Left-axis deviation no longer present Left ventricular hypertrophy no longer present Early repolarization no longer present Electronically Signed On 07-26-23 14:12:09 SPECIAL SHOPPER by Pj Smyth
[2023-07-26] MEDS: HYDROCODONE/APAP 7.5/325 MG TAB PO PRN (17:23)
[2023-07-26] MEDS: ATORVASTATIN 40 MG TAB PO SCH (21:26)
[2023-07-26] MEDS ORDERED: NA CHLORIDE 0.9% 500 ML ONE (21:38)
[2023-07-27] MEDS: HYDROCODONE/APAP 7.5/325 MG TAB PO PRN ×2 (00:19→22:04)
[2023-07-27 06:10] LABS: Hematocrit 39.1 % (36.0-45.0); MCV 90.6 fL (80-100); Platelets 234 thou/uL (152-406); RBC Red Blood Cell Count 4.32 M/uL (3.86-4.86)
[2023-07-27 06:22] LABS: Potassium 3.8 mEq/L (3.5-5.1)
[2023-07-27] MEDS: INSULIN REGULAR (HUMAN) 100 UNIT/ML SQ SCH ×4 (07:30→21:00)
[2023-07-27] MEDS: DOXYCYCLINE 100 MG in NA CHLORIDE 0.9% 100 ML IVPB SCH ×2 (08:44→22:41)
[2023-07-27] MEDS: LIDOCAINE 4% PATCH TOP SCH (08:44)
[2023-07-27] MEDS: LEVOTHYROXINE SOD 0.125 MG TAB PO SCH (08:44)
[2023-07-27] MEDS: carvediloL 6.25 MG TAB PO SCH (08:44)
[2023-07-27] MEDS: FUROSEMIDE 40 MG/4 ML VIAL IV SCH (08:44)
[2023-07-27] MEDS: ASPIRIN EC 81 MG TAB PO SCH (08:44)
[2023-07-27] MEDS: ENOXAPARIN 80 MG/0.8 ML SQ SCH (08:47)
[2023-07-27] MEDS: CEFEPIME 1 GM in NA CHLORIDE 0.9% 100 ML IV SCH ×2 (08:47→21:54)
[2023-07-27] MEDS ORDERED: LIDOCAINE 4% PATCH TOP SCH (09:00)
--- NOTE | 2023-07-27 09:08 | P.PN ---
Date of Service: 07/27/23 Subjective: Doing okay today, shortness of breath improving Working with PT Interested in going home in the next 24-48 hours ROS: 10 point ROS as noted above, otherwise negative Physical exam GEN: Alert, oriented, NAD HEENT: Normal conjunctiva, sclera anicteric CV: Regular rate and rhythm, no edema Pulm: Nonlabored respirations on room air, diminished bilaterally ABD: Soft, nontender, nondistended MSK: No joint tenderness Integumentary: No rashes Neuro: Normal speech, normal affect Vitals reviewed Problem List Severe sepsis secondary to bilateral pneumonia, UTI Acute on chronic diastolic congestive heart failure NSTEMI Acute on chronic hypoxic respiratory failure secondary to CHF/pneumonia Atrial fibrillation on chronic anticoagulation History of COPD on home O2 Diabetes mellitus type 3mio-shzgbwd-nfiplgptk Hypertension Plan: Severe sepsis secondary to bilateral pneumonia, UTI White blood cell count downtrending Blood cultures NGTD Urine culture mixed [place] Continue antibiotics, on cefepime and doxy working with PT Consult in for social media marketer-HH/PT Possible DC friday Acute on chronic diastolic congestive heart failure NSTEMI Continue IV diuresis, other home medications Await results from echocardiogram, Cardiology consult Troponin peaked at 731.2 now decreasing, suspect demand ischemia Redman catheter discontinued today 07/27 Therapeutic Lovenox monitor on telemetry Acute on chronic hypoxic respiratory failure secondary to CHF/pneumonia Improving, still mildly short of breath Pulmonology consult Continue nasal cannula , has at home Atrial fibrillation on chronic anticoagulation Restarted carvedilol given BP improving/elevated Therapeutic Lovenox given NSTEMI/afib Rate controlled currently History of COPD on home O2 Continue supplemental oxygen as needed As needed nebulizer treatments Diabetes mellitus type 1gvq-yvpxvqm-uuhjgurrr ACHS Accu-Chek, sliding scale insulin Hypertension Home medications continued DVT PPX: Therapeutic Lovenox Code status: DNR-OK with intubation Discharge Plan: Home in 48 to 72 hours Time Spent Managing Pts Care (In Minutes): 35
[2023-07-27 20:31] LABS: Magnesium 1.6 mg/dL (1.6-2.4); Potassium 3.5 mEq/L (3.5-5.1)
[2023-07-27] MEDS: ATORVASTATIN 40 MG TAB PO SCH (21:54)
[2023-07-28 04:18] LABS: Hematocrit 39.6 % (36.0-45.0); MCV 90.5 fL (80-100); MPV 6.7 fL (7.6-11.3); Platelets 255 thou/uL (152-406); RBC Red Blood Cell Count 4.38 M/uL (3.86-4.86)
[2023-07-28 04:25] LABS: Potassium 3.5 mEq/L (3.5-5.1)
[2023-07-28 06:33] LABS: Magnesium 1.7 mg/dL (1.6-2.4)
--- NOTE | 2023-07-28 07:10 | ECHO ---
HEIGHT: 4 ft 11 in WEIGHT: 144 lb 0 oz DATE OF STUDY: 07/24/[address]: Maykel Najera NP 2-DIMENSIONAL: YES M.MODE: YES DOPPLER: YES COLOR FLOW: YES TDS: PORTABLE: YES DEFINITY: BUBBLE STUDY: DIAGNOSIS: NON ST ELEVATION MYOCARDIAL INFARCTION CARDIAC HISTORY: CATHERIZATION: YES SURGERY: NO PROSTHETIC VALVE: NO PACEMAKER: YES MEASUREMENTS (cm) DIASTOLIC (NORMALS) SYSTOLIC (NORMALS) IVSd 1.1 (0.6-1.2) LA Diam 3.8 (1.9-4.0) LVEF LVIDd 5.0 (3.5-5.7) LVIDs 4.0 (2.0-3.5) %FS LVPWd 1.2 (0.6-1.2) Ao Diam 2.2 (2.0-3.7) 2 DIMENSIONAL ASSESSMENT: RIGHT ATRIUM: LEFT ATRIUM: RIGHT VENTRICLE: LEFT VENTRICLE: TRICUSPID VALVE: MITRAL VALVE: PULMONIC VALVE: AORTIC VALVE: PERICARDIAL EFFUSION: AORTIC ROOT: LEFT VENTRICULAR WALL MOTION: DOPPLER/COLOR FLOW: COMMENTS: 1. POOR QUALITY ECHOCARDIOGRAM 2. UNABLE TO ACCURATELY EVALUATE THE HEART ON THIS EXAM 3. SEVERE PULMONARY HYPERTENSION IS PRESENT TECHNOLOGIST: JENNIFER MONTENEGRO
[2023-07-28] MEDS: INSULIN REGULAR (HUMAN) 100 UNIT/ML SQ SCH ×4 (07:30→21:00)
--- NOTE | 2023-07-28 07:55 | P.PN ---
Subjective Date of Service: 07/28/23 Chief Complaint: May have pulmonary fibrosis Patient is 88 years of age admitted with pneumonia she is currently doing well. Patient quit smoking over 40 years ago she does use Pulmicort at home and oxygen at night denies any chest pain no fever Review of Systems General: Weakness Respiratory: Shortness of Breath Physical Examination - Vital Signs Temperature: 97.9 F Blood Pressure: 132/89 Pulse: 77 Respirations: 20 Pulse Ox (%): 96 - Physical Exam General: Alert, Oriented x3 Respiratory: Clear to auscultation bilaterally, Expiratory wheezes, Rhonchi/gurgles Cardiovascular: No edema, Regular rate/rhythm, Normal S1 S2 Assessment And Plan - Current Problems (Diagnosis) (1) Pneumonia Current Visit: Yes Status: Acute Plan: G89 admitted with non-STEMI right-sided pneumonia pulmonary fibrosis. She is on Pulmicort recommend changed to either triple or dual therapy instead of just inhaled steroid patient has a right-sided pneumonia steroids negative White count is normal Qualifiers: Pneumonia type: due to unspecified organism (2) Non-STEMI (non-ST elevated myocardial infarction) Current Visit: Yes Status: Acute Plan: Hemodynamically stable troponins were elevated yesterday Echo report not accessible vital signs oxygenation stable/KG is normal she has evidence of coronary artery disease with possibly new myocardial infarct
[2023-07-28] MEDS: carvediloL 6.25 MG TAB PO SCH (08:59)
[2023-07-28] MEDS: LEVOTHYROXINE SOD 0.125 MG TAB PO SCH (08:59)
[2023-07-28] MEDS: ASPIRIN EC 81 MG TAB PO SCH (08:59)
[2023-07-28] MEDS: FUROSEMIDE 40 MG/4 ML VIAL IV SCH (09:00)
[2023-07-28] MEDS ORDERED: POTASSIUM CL SA 10 MEQ TAB PO ONE (09:00)
[2023-07-28] MEDS: LIDOCAINE 4% PATCH TOP SCH (09:00)
[2023-07-28] MEDS: ENOXAPARIN 80 MG/0.8 ML SQ SCH (10:12)
[2023-07-28] MEDS: DOXYCYCLINE 100 MG CAP PO SCH ×2 (10:12→20:47)
[2023-07-28] MEDS: AMOX/K CLAV 875 MG TAB PO SCH ×2 (10:12→20:48)
[2023-07-28] MEDS: HYDROCODONE/APAP 7.5/325 MG TAB PO PRN ×2 (15:35→20:47)
--- NOTE | 2023-07-28 16:16 | P.PN ---
Date of Service: 07/28/23 Subjective: Doing okay today, shortness of breath improving Working with PT ROS: 10 point ROS as noted above, otherwise negative Physical exam GEN: Alert, oriented, NAD HEENT: Normal conjunctiva, sclera anicteric CV: Regular rate and rhythm, no edema Pulm: Nonlabored respirations on room air, diminished bilaterally ABD: Soft, nontender, nondistended MSK: No joint tenderness Integumentary: No rashes Neuro: Normal speech, normal affect Vitals reviewed Problem List Severe sepsis secondary to bilateral pneumonia, UTI Acute on chronic diastolic congestive heart failure NSTEMI Acute on chronic hypoxic respiratory failure secondary to CHF/pneumonia Atrial fibrillation on chronic anticoagulation History of COPD on home O2 Diabetes mellitus type [id number] Hypertension Plan: Severe sepsis secondary to bilateral pneumonia, UTI White blood cell count downtrending Blood cultures NGTD Urine culture mixed [place] Continue antibiotics, on cefepime and doxy, augmentin and doxy at DC per pulm working with PT 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-HH/PT Acute on chronic diastolic congestive heart failure NSTEMI Continue diuresis, other home medications Await results from echocardiogram, Cardiology consult Troponin peaked at 731.2 now decreasing, suspect demand ischemia Redman catheter discontinued today 07/27 Therapeutic Lovenox monitor on telemetry cardiology recommends stress test tomorrow Acute on chronic hypoxic respiratory failure secondary to CHF/pneumonia Improving, still mildly short of breath Pulmonology consult Continue nasal cannula 02, has at home Atrial fibrillation on chronic anticoagulation Restarted carvedilol given BP improving/elevated Therapeutic Lovenox given NSTEMI/afib Rate controlled currently History of COPD on home O2 Continue supplemental oxygen as needed As needed nebulizer treatments Diabetes mellitus type [id number] ACHS Accu-Chek, sliding scale insulin Hypertension Home medications continued DVT PPX: Therapeutic Lovenox Code status: DNR-OK with intubation Discharge Plan: Home in 24 to 48 Time Spent Managing Pts Care (In Minutes): 35
[2023-07-28] MEDS: ATORVASTATIN 40 MG TAB PO SCH (20:48)
[2023-07-29 04:39] LABS: Hematocrit 37.4 % (36.0-45.0); MCV 90.2 fL (80-100); MPV 6.7 fL (7.6-11.3); Platelets 233 thou/uL (152-406); RBC Red Blood Cell Count 4.14 M/uL (3.86-4.86)
[2023-07-29 04:44] LABS: Potassium 3.8 mEq/L (3.5-5.1)
[2023-07-29 05:16] LABS: Magnesium 1.7 mg/dL (1.6-2.4)
[2023-07-29] MEDS ORDERED: KCL 20 MEQ/100 mL IVPB 20 MEQ/100 ML BAG IV SCH (06:00)
[2023-07-29] MEDS: INSULIN REGULAR (HUMAN) 100 UNIT/ML SQ SCH ×4 (07:30→21:00)
[2023-07-29] MEDS ORDERED: REGADENOSON 0.4 MG/5 ML SYR IV ONE (07:51)
[2023-07-29] MEDS ORDERED: MAGNESIUM SULFATE 1 gm IVPB 1 GM/100 ML BAG IV ONE (09:00)
[2023-07-29] MEDS: ENOXAPARIN 80 MG/0.8 ML SQ SCH (09:00)
[2023-07-29] MEDS: FUROSEMIDE 40 MG/4 ML VIAL IV SCH (11:10)
[2023-07-29] MEDS: LIDOCAINE 4% PATCH TOP SCH (11:12)
[2023-07-29] MEDS: AMOX/K CLAV 875 MG TAB PO SCH ×2 (11:19→21:26)
[2023-07-29] MEDS: ASPIRIN EC 81 MG TAB PO SCH (11:19)
[2023-07-29] MEDS: DOXYCYCLINE 100 MG CAP PO SCH ×2 (11:19→21:27)
[2023-07-29] MEDS: carvediloL 6.25 MG TAB PO SCH (11:20)
[2023-07-29] MEDS: LEVOTHYROXINE SOD 0.125 MG TAB PO SCH (11:20)
--- NOTE | 2023-07-29 12:39 | TREADPHA ---
DX: NON ST ELEVATION MYOCARDIAL INFARCTION, CONGESTIVE HEART FAILURE Date of Study: 07/29/2023 Ht: 4' 11 " Wt: 144 lb 0 oz Consulting Physician: GILL MEDICATIONS: TYLENOL, NORCO, PROVENTIL, AUGMENTIN, ASPIRIN, LIPITOR, COREG, VIBRAMYCIN, LOVENOX, LASIX, NOVOLIN-R, SYNTHROID, ZOFRAN HISTORY: 88 YEAR OLD FEMALE WITH COMPLIANTS OF CHEST PAIN AND SHORTNESS OF BREATH. PATIENT STATES ALLERGY TO MORPHINE. PATIENT HISTORY OF DIABETES MELLITUS, CONGESTIVE HEART FAILURE, DEFIBRILLATOR PHYSICIAL EXAMINATION: RESTING B.P.: 157/76 RESTING H.R.: 74 RESTING EKG: SINUS RHYTHM WITH PREMATURE VENTRICULAR COMPLEXES OCCASIONAL PROTOCOL: PHARMACOLOGIC EXERCISE TIME: 3:30 B.P. AT PEAK STRESS: 135/97 IMPRESSION: LEXISCAN INJECTED. CARDIOLITE INJECTED. SEE NUCLEAR MEDICINE REPORT. PATIENT DENIES CHEST PAIN. COMPLAINTS OF BACK PAIN AND SHORTNESS OF BREATH AND HEADACHE. NO SUPRAVENTRICULAR TACHYCARDIA, VENTRICULAR TACHYCARDIA, PREMATURE ATRIAL COMPLEXES NOTED. FREQUENT PREMATURE VENTRICULAR COMPLEXES THROUGHOUT. NO ELECTROCARDIOGRAM CHANGES WITH LEXISCAN.
--- NOTE | 2023-07-29 13:02 | RAD REPORT ---
EXAM DESCRIPTION: NM - Rest Stress Cardiac Imaging - 07/29/2023 10:42 am CLINICAL HISTORY: CP Chest pain. COMPARISON: REST STRESS CARDIAC dated 02/04/2013 TECHNIQUE: The patient was administered approximately 10.7 mCi of Tc 99m Sestamibi prior to resting SPECT imaging of the heart. The patient was then administered approximately 30.3 mCi of Tc 99m Sestam ibi following exercise or pharmacologic stress. Multiplanar SPECT images were reviewed. FINDINGS: No stress induced ischemic defect is seen to suggest stress induced ischemia. Essentially stable pattern of fixed defects involving the apex, adjacent apical segments of the left ventricular myocardium, and the lateral wall, with more pronounced inferior and adjacent lateral wall defects sin ce the prior exam. The inferior wall defects may in part be related to splanchnic attenuation artifac t. The end diastolic volume is 142 ml, the end systolic volume is 95 ml, and the ejection fraction is 33 %. IMPRESSION: New areas of fixed defect involving the inferior and adjacent lateral wall, may represen t new areas of infarct in the interim, although in part may be artifactual. Other fixed defects sugge stive of infarct involving the apex, adjacent apical segments, and lateral wall are otherwise stable. No evidence of stress-induced myocardial ischemia. Reduced left ventricular ejection fraction again seen, today calculated at 33%, slightly increased fr om 25% on the prior exam.
--- NOTE | 2023-07-29 13:41 | P.PN ---
Subjective Date of Service: 07/29/23 Chief Complaint: May have pulmonary fibrosis Subjective: No new changes 07/29: Melany had a stress test today, Results pending. Will follow Dr. Smyth's recommendations. She was awake this morning, conversing well, alert and oriented x3. Review of Systems 10-point ROS is otherwise unremarkable Physical Examination - Vital Signs Temperature: 97.1 F Blood Pressure: 147/76 Pulse: 80 Respirations: 16 Pulse Ox (%): 95 - Studies Microbiology Data (last 24 hrs): 07/23/23 09:15 Blood - Blood Aerobic Blood Culture - Final No growth in 5 days. 07/23/23 09:15 Blood - Blood Anaerobic Blood Culture - Final No growth in 5 days. 07/23/23 09:10 Blood - Blood Aerobic Blood Culture - Final No growth in 5 days. 07/23/23 09:10 Blood - Blood Anaerobic Blood Culture - Final No growth in 5 days. Assessment And Plan - Plan Physical exam GEN: Alert, oriented, NAD HEENT: Normal conjunctiva, sclera anicteric CV: Regular rate and rhythm, no edema Pulm: Nonlabored respirations on room air, diminished bilaterally ABD: Soft, nontender, nondistended MSK: No joint tenderness Integumentary: No rashes Neuro: Normal speech, normal affect Problem List Severe sepsis secondary to bilateral pneumonia, UTI Acute on chronic diastolic congestive heart failure NSTEMI Acute on chronic hypoxic respiratory failure secondary to CHF/pneumonia Atrial fibrillation on chronic anticoagulation History of COPD on home O2 Diabetes mellitus type [id number]-lyfeswzow Hypertension Plan: Severe sepsis secondary to bilateral pneumonia, UTI White blood cell count downtrending Blood cultures NGTD Urine culture mixed [place] Continue antibiotics, on cefepime and doxy, augmentin and doxy at DC per pulm working with PT Consult in for social service worker-HH/PT Acute on chronic diastolic congestive heart failure NSTEMI Continue diuresis, other home medications Await results from echocardiogram, Cardiology consult Troponin peaked at 731.2 now decreasing, suspect demand ischemia Redman catheter discontinued today 07/27 Therapeutic Lovenox monitor on telemetry cardiology recommends stress test tomorrow Acute on chronic hypoxic respiratory failure secondary to CHF/pneumonia Improving, still mildly short of breath Pulmonology consult Continue nasal cannula 02, has at home Atrial fibrillation on chronic anticoagulation Restarted carvedilol given BP improving/elevated Therapeutic Lovenox given NSTEMI/afib Rate controlled currently History of COPD on home O2 Continue supplemental oxygen as needed As needed nebulizer treatments Diabetes mellitus type [id number]-eglufaddc ACHS Accu-Chek, sliding scale insulin Hypertension Home medications continued DVT PPX: Therapeutic Lovenox Code status: DNR-OK with intubation Discharge Plan: Home in 24 to 48
[2023-07-29] MEDS: ATORVASTATIN 40 MG TAB PO SCH (21:26)
[2023-07-30] MEDS: HYDROCODONE/APAP 7.5/325 MG TAB PO PRN (04:20)
[2023-07-30] MEDS ORDERED: MAGNESIUM SULFATE 1 gm IVPB 1 GM/100 ML BAG IV ONE (07:14)
[2023-07-30] MEDS: INSULIN REGULAR (HUMAN) 100 UNIT/ML SQ SCH ×2 (07:30→11:30)
[2023-07-30] MEDS: LEVOTHYROXINE SOD 0.125 MG TAB PO SCH (07:30)
[2023-07-30] MEDS: ASPIRIN EC 81 MG TAB PO SCH (09:00)
[2023-07-30] MEDS: AMOX/K CLAV 875 MG TAB PO SCH (09:00)
[2023-07-30] MEDS: carvediloL 6.25 MG TAB PO SCH (09:00)
[2023-07-30] MEDS: FUROSEMIDE 40 MG/4 ML VIAL IV SCH (09:00)
[2023-07-30] MEDS: LIDOCAINE 4% PATCH TOP SCH (09:00)
[2023-07-30] MEDS ORDERED: POTASSIUM CL SA 10 MEQ TAB PO ONE ×2 (09:00)
[2023-07-30] MEDS: DOXYCYCLINE 100 MG CAP PO SCH (09:00)
[2023-07-30 13:39] VITALS: BP 104/57; TEMP 98; O2SAT 97
[2023-07-30] MEDS ORDERED: MAGNESIUM OXIDE 400 MG TAB PO ONE (14:00)
--- NOTE | 2023-07-30 14:02 | P.DS ---
Admission Date: 07/23/23 Discharge Date: 07/30/23 Reason for Admission: May have pulmonary fibrosis - Problems (1) Non-STEMI (non-ST elevated myocardial infarction) Status: Acute (2) Pneumonia Status: Acute Qualifiers: Pneumonia type: due to unspecified organism Hospital Course: Melany is a pleasant 88-year-old female with a past medical history signific ant for atrial fibrillation on chronic anticoagulation, chronic diastolic congestive heart failure, COPD on home oxygen, eny-viccgat-wigtviejy diabetes, and hypertension who was admitted to the [facility] on 07/23 for CHF exacerbation, severe sepsis, pneumonia. Melany presented to the ED with chief complaint of shortness of breath, fevers overnight. She is on home oxygen at 3 L nasal cannula and was hypoxic at home while on this oxygen. Initial labs show troponin for 3.8, BNP 29,615, procalcitonin 3.47, WBC 14.7. She tolerated IV antibiotics, IV Lasix, and continued [address] Smyth was consulted and she went for a stress test and a nuclear stress test of which results were negative. On 07/30/23, Melany was seen on morning rounds and deemed medically stable for discharge. Melany was discharged with instructions to schedule follow-up appointments with Dr. Smyth and PCP. No prescriptions this admission. The patient and family members were given the opportunity to ask questions and reported no further questions. Furthermore, all questions were answered to the best of my ability. A copy of this discharge summary will be sent to the above providers to facilitate continuity of care. Today, I personally spent 55 minutes with Melany, of which greater than 50% of the time was spent in patient education, counseling, and coordination of care as described above. Physical exam GEN: Alert, oriented, NAD HEENT: Normal conjunctiva, sclera anicteric CV: Regular rate and rhythm, no edema Pulm: Nonlabored respirations on room air, diminished bilaterally ABD: Soft, nontender, nondistended MSK: No joint tenderness Integumentary: No rashes Neuro: Normal speech, normal affect <Berkley Ballesteros - Last Filed: 07/30/23 16:00> Admission Date: 07/23/23 Discharge Date: 07/31/23 Hospital Course: Diagnosis Severe sepsis secondary to bilateral pneumonia, UTI Acute on chronic diastolic congestive heart failure NSTEMI Acute on chronic hypoxic respiratory failure secondary to CHF/pneumonia Atrial fibrillation on chronic anticoagulation History of COPD on home O2 Diabetes mellitus type [id number]-[id number] Hypertension <robin shaw - Last Filed: 07/31/23 09:10> Disposition: DC HOME/HOME HEALTH CARE Discharge Condition: FAIR Vital Signs/Physical Exam: Temp Pulse Resp BP Pulse Ox 98.0 F 67 16 104/57 L 97 07/30/23 12:00 07/30/23 12:00 07/30/23 12:00 07/30/23 12:00 07/30/23 12:00 Laboratory Data at Discharge: WBC 6.30 thou/uL (4.3-10.9) 07/29/23 03:51 Hgb 12.4 g/dL (12.0-15.0) 07/29/23 03:51 Hct 37.4 % (36.0-45.0) 07/29/23 03:51 Plt Count 233 thou/uL (152-406) 07/29/23 03:51 PT 15.6 SECONDS (9.5-12.5) H 07/23/23 07:46 INR 1.42 07/23/23 07:46 APTT 36.8 SECONDS (24.3-36.9) 07/23/23 09:10 Sodium 135 mEq/L (136-145) L 07/29/23 03:51 Potassium 4.0 mEq/L (3.5-5.1) 07/30/23 12:22 BUN 23 mg/dL (7-18) H 07/29/23 03:51 Creatinine 0.79 mg/dL (0.55-1.02) 07/29/23 03:51 Glucose 89 mg/dL (74-106) 07/29/23 03:51 Magnesium 2.0 mg/dL (1.6-2.4) 07/30/23 12:22 Total Bilirubin 1.2 mg/dL (0.2-1.0) H 07/23/23 09:10 AST 25 U/L (15-37) 07/23/23 09:10 ALT 15 U/L (13-56) 07/23/23 09:10 Alkaline Phosphatase 79 U/L (45-117) 07/23/23 09:10 Triglycerides 67 mg/dL (<150) 07/24/23 01:39 Cholesterol 166 mg/dL (<200) 07/24/23 01:39 HDL Cholesterol 42 mg/dL (40-60) 07/24/23 01:39 Cholesterol/HDL Ratio 3.95 07/24/23 01:39 <Berkley Ballesteros - Last Filed: 07/30/23 16:00> Vital Signs/Physical Exam: Temp Pulse Resp BP Pulse Ox 98.0 F 67 16 104/57 L 97 07/30/23 12:00 07/30/23 12:00 07/30/23 12:00 07/30/23 12:00 07/30/23 12:00 Laboratory Data at Discharge: WBC 6.30 thou/uL (4.3-10.9) 07/29/23 03:51 Hgb 12.4 g/dL (12.0-15.0) 07/29/23 03:51 Hct 37.4 % (36.0-45.0) 07/29/23 03:51 Plt Count 233 thou/uL (152-406) 07/29/23 03:51 PT 15.6 SECONDS (9.5-12.5) H 07/23/23 07:46 INR 1.42 07/23/23 07:46 APTT 36.8 SECONDS (24.3-36.9) 07/23/23 09:10 Sodium 135 mEq/L (136-145) L 07/29/23 03:51 Potassium 4.0 mEq/L (3.5-5.1) 07/30/23 12:22 BUN 23 mg/dL (7-18) H 07/29/23 03:51 Creatinine 0.79 mg/dL (0.55-1.02) 07/29/23 03:51 Glucose 89 mg/dL (74-106) 07/29/23 03:51 Magnesium 2.0 mg/dL (1.6-2.4) 07/30/23 12:22 Total Bilirubin 1.2 mg/dL (0.2-1.0) H 07/23/23 09:10 AST 25 U/L (15-37) 07/23/23 09:10 ALT 15 U/L (13-56) 07/23/23 09:10 Alkaline Phosphatase 79 U/L (45-117) 07/23/23 09:10 Triglycerides 67 mg/dL (<150) 07/24/23 01:39 Cholesterol 166 mg/dL (<200) 07/24/23 01:39 HDL Cholesterol 42 mg/dL (40-60) 07/24/23 01:39 Cholesterol/HDL Ratio 3.95 07/24/23 01:39 <robin shaw - Last Filed: 07/31/23 09:10> Diet: AHA Activity: Fall precautions Time spent managing pt's care (in minutes): 55 <Berkley Ballesteros - Last Filed: 07/30/23 16:00> <robin shaw - Last Filed: 07/31/23 09:10> Home Medications: Aspirin Enteric Coated [ASPIRIN 81 MG EC*] 81 mg PO DAILY 02/02/13 Cranberry Fruit Concentrate [Cranberry] 3,200 mg PO DAILY 02/02/13 Cyanocobalamin [Vitamin B-12*] 1,000 mcg PO DAILY WITH BREAKFAST 02/02/13 Glipizide [Glipizide Xl] 5 mg PO BID 02/02/13 Montelukast [Singulair*] 10 mg PO BEDTIME PRN 02/02/13 Multivit-Min/Iron Fum/Folic AC [Multivitamin-Minerals Tablet] 1 tab PO DAILY 02/02/13 Furosemide [Lasix*] 40 mg PO DAILY #90 tab 02/12/13 Levothyroxine Sodium [Levoxyl] 125 mcg PO DAILY #90 tablet 02/12/13 Isosorbide Dinit [Isordil*] 20 mg PO BID 03/11/22 Zinc Gluconate [Zinc Gluconate*] 25 mg PO DAILY 03/11/22 Amlodipine [Norvasc*] 5 mg PO DAILY #30 tab 03/12/22 Cholecalciferol (Vitamin D3) [Vitamin D 5,000 IU Cap*] 1 tab PO DAILY 07/24/23 Potassium Gluconate [Potassium] 595 mg PO BID 07/24/23 carvediloL [Carvedilol] 1 tab PO DAILY 07/24/23 Fluticasone/Umeclidin/Vilanter [Trelegy Ellipta 100-62.5-25] 1 each IH DAILY 30 Days #30 aero 07/28/23 New Medications: Fluticasone/Umeclidin/Vilanter [Trelegy Ellipta 100-62.5-25] 1 each IH DAILY 30 Days #30 aero Physician Discharge Instructions: 1. Please call and schedule a follow-up appointment with your PCP in 3-5 days - Please follow-up with your PCP for medication refills/adjustments 2. Please call and schedule a follow-up appointment with Dr. Smyth in 3-5 days 3. Continue heart healthy diet of low sodium 4. fall precaution 5. Home health is ready to assist you 6. Return to ED if symptoms worsen No new medications this admission Followup: NONE,NONE [Primary Care Provider] - Pj Smyth MD [ACTIVE - CAN ADMIT] -
== END 2023-07-30 15:45 | disposition home health service (06) | DRG 871 ==
LOC: ER 07:33 → ERHOLD 09:49 → 2ND 18:05
PROVIDERS: ADMIT Hospitalist; ATTEND Internal Medicine
PROC: 5A09457 Assistance with Respiratory Ventilation, 24-96 Consecutive Hours, Continuous Positive Airway Pressure (ICD-10-PCS; principal; 2023-07-23)
DX: A41.9 Sepsis, unspecified organism (principal); I21.4 Non-ST elevation (NSTEMI) myocardial infarction; J18.9 Pneumonia, unspecified organism; I50.33 Acute on chronic diastolic (congestive) heart failure; J96.21 Acute and chronic respiratory failure with hypoxia; N39.0 Urinary tract infection, site not specified; J44.0 Chronic obstructive pulmonary disease with (acute) lower respiratory infection; R65.20 Severe sepsis without septic shock; I11.0 Hypertensive heart disease with heart failure; E11.9 Type 2 diabetes mellitus without complications; E87.6 Hypokalemia; I48.91 Unspecified atrial fibrillation; J45.909 Unspecified asthma, uncomplicated; I25.2 Old myocardial infarction; Z66 Do not resuscitate; Z88.5 Allergy status to narcotic agent; Z85.3 Personal history of malignant neoplasm of breast; Z90.49 Acquired absence of other specified parts of digestive tract; Z79.01 Long term (current) use of anticoagulants; Z79.82 Long term (current) use of aspirin; Z79.84 Long term (current) use of oral hypoglycemic drugs; Z99.81 Dependence on supplemental oxygen; Z79.890 Hormone replacement therapy; Z79.899 Other long term (current) drug therapy; Z95.810 Presence of automatic (implantable) cardiac defibrillator; Z87.891 Personal history of nicotine dependence
CPT/HCPCS: 0241U; 36415; 36600; 51702; 71045; 71250; 78452; 80048; 80053; 80061; 80076; 81001; 82805; 82947; 83605; 83735; 83880; 84132; 84145; 84439; 84443; 84484; 85025; 85027; 85610; 85730; 87040; 87086; 87088; 87804; 93005; 93017; 93306; 94660; 94760; 96365; 96375; 97110; 97116; 97161; 97530; 99285; A9500; J0692; J0696; J1940; J2001; J2405; J2785; J3475; J7030; J7040; J7050